=== PATIENT | male | born 1940 | race Caucasian/White ===

== ENCOUNTER 2019-02-17 22:49 | Observation (INO) | payer OTHER ==
[~2019-02-17] VITALS: Ht 172.7 cm; Wt 88.3 kg
--- OUTSIDE RECORDS SUMMARY | ~2019-02-17 | XMS | Encounter Summary ---
Demographics + + + | Address | [address] | | | [place] [address] | + + + | Home Phone | | + + + | Preferred Language | Unknown | + + + | Marital Status | | + + + | Methodist Affiliation | 1025 | + + + | Race | Unknown | + + + | Ethnic Group | Unknown | + + + Author + + + | Author | [facility] | | | and [place] | + + + | Organization | [facility] | | | and [place] | + + + | Address | Unknown | + + + | Phone | Unavailable | + + + Support + + +---------+ + | Name | Relationship | Address | Phone | + + +---------+ + | Ella Mcfadden | ECON | Unknown | | + + +---------+ + | Juan Mcfadden | ECON | Unknown | | + + +---------+ + Care Team Providers + +------+ + | Care Communications Equipment Operator Name | Role | Phone | + +------+ + | Ryan Gutiérrez MD | PCP | | + +------+ + Encounter Details +--------+ + + + + | Date | Type | Department | Care Team | Description | +--------+ + + + + | 10/22/ | [facility] | | | 2017 | Encounter | [facility] [address] | MD [address] | | | | | [address] | [place] | | | | | [place] | [address] | | | | | [address] | | | | | | [phone] | | | +--------+ + + + + Social History + +-------+ +--------+------+ | Tobacco Use | Types | Packs/Day | Years | Date | | | | | Used | | + +-------+ +--------+------+ | Former Smoker | | | | | + +-------+ +--------+------+ + + +---------+ + | Alcohol Use | Drinks/Week | oz/Week | Comments | + + +---------+ + | Not Asked | | | | + + +---------+ + + + + | Sex Assigned at | Date Recorded | | | | + + + | Not on file | | + + + + + + + | Job Start Date | Occupation | Industry | + + + + | Not on file | Not on file | Not on file | + + + + + + + + | Travel History | Travel Start | Travel End | + + + + + + | No recent travel history available. | + + documented as of this encounter Medications at Time of Discharge + + + +---------+--------+ + | Medication | Sig | Dispensed | Refills | Start | End Date | | | | | | Date | | + + + +---------+--------+ + | aspirin 81 mg EC | Take 81 mg by mouth | | 0 | | | | tablet | Daily. | | | | 7 | + + + +---------+--------+ + | atenolol | Take 25 mg by mouth | | 0 | | | | (TENORMIN) 25 mg | Daily. | | | | 8 | | tablet | | | | | | + + + +---------+--------+ + | gabapentin | Take 600 mg by mouth | | 0 | | | | (NEURONTIN) 300 mg | 3 times daily. | | | | 8 | | capsule | | | | | | + + + +---------+--------+ + | levothyroxine | Take 137 mcg by | | 0 | | | | (SYNTHROID, | mouth every morning | | | | 8 | | LEVOTHROID) 137 MCG | (before breakfast). | | | | | | tablet | | | | | | + + + +---------+--------+ + | omeprazole | Take 20 mg by mouth | | 0 | | | | (PRILOSEC) 20 mg | every morning | | | | 8 | | capsule | (before breakfast). | | | | | + + + +---------+--------+ + | testosterone | Place 1 patch onto | | 0 | | | | (ANDRODERM) 2.5 | the skin Daily. | | | | 8 | | mg/24 hr | | | | | | + + + +---------+--------+ + documented as of this encounter Plan of Treatment +--------+---------+ + + + | Date | Type | Specialty | Care Team | Description | +--------+---------+ + + + | 02/25/ | Office | General Surgery | Scott De Oliveira | | | 2018 | Visit | | DO Luis Fernando Rao | | | | | | [address] | | | | | | [place] | | | | | | [address] | | | | | | [phone] | | | | | | | | +--------+---------+ + + + | 02/26/ | Office | Urology | Lillie Fowler | | | 2018 | Visit | | LILLIE Lopez [address] | | | | | | [address] | | | | | | [place] | | | | | | [address] | | | | | | [phone] | | | | | | | | +--------+---------+ + + + | 03/16/ | Office | Neurology | Theresa, | | | 2018 | Visit | | SHONDA M[address]ney [address] | | | | | [address] [place], | | | | | | [place] [address] | | | | | | [phone] | | | | | | | | +--------+---------+ + + + | 04/12/ | Office | Primary Care | Massimo Ramos | | | 2019 | Visit | | MD Fer [address] | | | | | | [place] | | | | | | [address] | | | | | | | | +--------+---------+ + + + | 10/03/ | Office | Neurology | Fabián Carias MD | | | 2019 | Visit | | [address] | | | | | | [place] | | | | | | [address] | | | | | | | | +--------+---------+ + + + documented as of this encounter Goals + +--------+ + + + + | Goal | Patien | Associated | Recent Progress | Patient- | Author | | | t Goal | Problems | | Stated? | | | | Type | | | | | + +--------+ + + + + | Improve kidney | Lifest | Coordinatio | | Yes | Jocelyn, | | function and decrease | yle | n of | | | Charline M, | | dehydration | | complex | | | Case | | | | care | | | Orthodontic Treatment Coordinator-C | | | | | | | linical | + +--------+ + + + + + + | Note: 1) Increase | | fluid intake of water | | 4-8 glasses daily.2) | | Decrease caffeine intake | | daily3) Avoid use of | | NSAID for chronic pain4) | | Decrease or find | | alternative to Narcotics | | for chronic pain | + + + +--------+ +---+-----+ + | Chronic pain | Lifest | Coordinatio | | Yes | Allsen, | | management | yle | n of | | | Charline Dos Santos, | | | | complex | | | Case | | | | care | | | Orthodontic Treatment Coordinator-C | | | | | | | linical | + +--------+ +---+-----+ + + + | Note: 1) Utilize | | non-steroid pain | | reliever for pain2) Use | | alternative pain | | relieving measures; | | exercise.3) Take | | narcotic as prescribed | + + + +--------+ +---+-----+ + | Compliant with | Lifest | Coordinatio | | Yes | Allsen, | | Medication | yle | n of | | | Charline M, | | | | complex | | | Case | | | | care | | | Orthodontic Treatment Coordinator-C | | | | | | | linical | + +--------+ +---+-----+ + + + | Note: Will take | | medications as prescribe | | with managing his | | med minder weekly. | + + + +--------+ +---+-----+ + | Decrease blood sugars | Lifest | Coordinatio | | Yes | Jocelyn, | | | yle | n of | | | Charline Dos Santos, | | | | complex | | | Case | | | | care | | | Orthodontic Treatment Coordinator-C | | | | | | | linical | + +--------+ +---+-----+ + + + | Note: Pt will | | check CBG's daily x1 | | Pt will take Lantis as | | prescribed | + + documented as of this encounter Procedures + +--------+ + + + | Procedure Name | Priori | Date/Time | Associated Diagnosis | Comments | | | ty | | | | + +--------+ + + + | POC GLUCOSE, | Routin | 10/23/2016 | | Results for this | | RAPIDPOINT | e | 7:52 AM | | procedure are in the | | | | PDT | | results section. | + +--------+ + + + | POC GLUCOSE, | Routin | 10/23/2016 | | Results for this | | RAPIDPOINT | e | 6:08 AM | | procedure are in the | | | | PDT | | results section. | + +--------+ + + + | POC GLUCOSE, | Routin | 10/22/2016 | | Results for this | | RAPIDPOINT | e | 9:05 PM | | procedure are in the | | | | PDT | | results section. | + +--------+ + + + | POC GLUCOSE, | Routin | 10/22/2016 | | Results for this | | RAPIDPOINT | e | 5:01 PM | | procedure are in the | | | | PDT | | results section. | + +--------+ + + + | BLOOD GAS, ARTERIAL | DIEUDONNE | 10/22/2016 | | Results for this | | | | 2:35 PM | | procedure are in the | | | | PDT | | results section. | + +--------+ + + + | DRUGS OF ABUSE, | Routin | 10/22/2016 | | Results for this | | SCREEN, URINE | e | 2:33 PM | | procedure are in the | | | | PDT | | results section. | + +--------+ + + + documented in this encounter Results POC Glucose, [facility] (10/23/2016 7:52 AM PDT) + +-------+ + + + | Component | Value | Ref Range | Performed | Pathologist | | | | | At | Signature | + +-------+ + + + | Glucose, | 100 | 70 - 110 mg/dL | EXTERNAL | | | POC | | | LAB | | + +-------+ + + + + + | Specimen | + + | | + + + +---------+ + + | Performing | Address | City/State/Zipcode | Phone Number | | Organization | | | | + +---------+ + + | EXTERNAL LAB | | | | + +---------+ + + POC Glucose, [facility] (10/23/2016 6:08 AM PDT) + +-------+ + + + | Component | Value | Ref Range | Performed | Pathologist | | | | | At | Signature | + +-------+ + + + | Glucose, | 108 | 70 - 110 mg/dL | EXTERNAL | | | POC | | | LAB | | + +-------+ + + + + + | Specimen | + + | | + + + +---------+ + + | Performing | Address | City/State/Zipcode | Phone Number | | Organization | | | | + +---------+ + + | EXTERNAL LAB | | | | + +---------+ + + POC Glucose, [facility] (10/22/2016 9:05 PM PDT) + +-------+ + + + | Component | Value | Ref Range | Performed | Pathologist | | | | | At | Signature | + +-------+ + + + | Glucose, | 93 | 70 - 110 mg/dL | EXTERNAL | | | POC | | | LAB | | + +-------+ + + + + + | Specimen | + + | | + + + +---------+ + + | Performing | Address | City/State/Zipcode | Phone Number | | Organization | | | | + +---------+ + + | EXTERNAL LAB | | | | + +---------+ + + POC Glucose, [facility] (10/22/2016 5:01 PM PDT) + +-------+ + + + | Component | Value | Ref Range | Performed | Pathologist | | | | | At | Signature | + +-------+ + + + | Glucose, | 104 | 70 - 110 mg/dL | EXTERNAL | | | POC | | | LAB | | + +-------+ + + + + + | Specimen | + + | | + + + +---------+ + + | Performing | Address | City/State/Zipcode | Phone Number | | Organization | | | | + +---------+ + + | EXTERNAL LAB | | | | + +---------+ + + Blood Gas, Arterial (10/22/2016 2:35 PM PDT) + + + + + + | Component | Value | Ref Range | Performed | Pathologist | | | | | At | Signature | + + + + + + | pH | 7.31 | 7.35 - 7.45 PH | EXTERNAL | | | | | UNITS | LAB | | + + + + + + | PCO2 | 43 | 35 - 45 mm Hg | EXTERNAL | | | | | | LAB | | + + + + + + | PO2 | 104 | 69 - 116 mm Hg | EXTERNAL | | | | | | LAB | | + + + + + + | pH Temp | 7.34 | 7.35 - 7.45 PH | EXTERNAL | | | Corrected | | UNITS | LAB | | + + + + + + | CARBON | 40 | 35 - 45 mm Hg | EXTERNAL | | | DIOXIDE | | | LAB | | | TEMP | | | | | | CORRECTED | | | | | | (REF) | | | | | + + + + + + | PO2 TEMP | 94 | 69 - 116 mm Hg | EXTERNAL | | | CORRECTED | | | LAB | | | (REF) | | | | | + + + + + + | S-O2 SAT | 98 | 95 - 99 % | EXTERNAL | | | ART | | | LAB | | + + + + + + | BASE EXCESS | -4.1 | -2.4 - 2.3 | EXTERNAL | | | | | mEq/L | LAB | | + + + + + + | HCO3 | 22 | 17 - 28 mmol/L | EXTERNAL | | | | | | LAB | | + + + + + + | CO2 | 23 | 23 - 27 mmol/L | EXTERNAL | | | | | | LAB | | + + + + + + | FiO2 | 28.0 | % | EXTERNAL | | | | | | LAB | | + + + + + + | L/min of O2 | 2L/Nasal Cannula | | EXTERNAL | | | | | | LAB | | + + + + + + | Temp, POC | 35.2 | C | EXTERNAL | | | | | | LAB | | + + + + + + | ARTERIAL | RADIAL ARTERY | | EXTERNAL | | | BLOOD GAS | | | LAB | | | DO2 DIFF. | | | | | + + + + + + | Howard Test | PASS | | EXTERNAL | | | | | | LAB | | + + + + + + + + | Specimen | + + | | + + + +---------+ + + | Performing | Address | City/State/Zipcode | Phone Number | | Organization | | | | + +---------+ + + | EXTERNAL LAB | | | | + +---------+ + + Drugs of Abuse, Screen, Urine (10/22/2016 2:33 PM PDT) + +-------+ + + + | Component | Value | Ref Range | Performed | Pathologist | | | | | At | Signature | + +-------+ + + + | THC RESULT | NEG | NEG ng/mL | EXTERNAL | | | | | | LAB | | + +-------+ + + + | Phencyclidi | NEG | NEG ng/mL | EXTERNAL | | | ne | | | LAB | | + +-------+ + + + | Cocaine | NEG | NEG ng/mL | EXTERNAL | | | | | | LAB | | + +-------+ + + + | Methampheta | NEG | NEG ng/mL | EXTERNAL | | | mine | | | LAB | | + +-------+ + + + | Opiates | NEG | NEG ng/mL | EXTERNAL | | | | | | LAB | | + +-------+ + + + | Amphetamine | NEG | NEG ng/mL | EXTERNAL | | | s | | | LAB | | + +-------+ + + + | Benzodiazep | NEG | NEG ng/mL | EXTERNAL | | | codie | | | LAB | | | Screen, | | | | | | Urine | | | | | + +-------+ + + + | TCA Scrn | NEG | NEG ng/mL | EXTERNAL | | | | | | LAB | | + +-------+ + + + | Methadone | NEG | NEG ng/mL | EXTERNAL | | | Screen, | | | LAB | | | Urine | | | | | + +-------+ + + + | Barbiturate | NEG | NEG ng/mL | EXTERNAL | | | s | | | LAB | | + +-------+ + + + | Oxycodone | NEG | NEG ng/mL | EXTERNAL | | | | | | LAB | | + +-------+ + + + | Propoxyphen | NEG | NEG ng/mL | EXTERNAL | | | e | | | LAB | | + +-------+ + + + | Buprenorphi | POS | NEG ng/mL | EXTERNAL | | | ne | | | LAB | | + +-------+ + + + + + | Specimen | + + | | + + + +---------+ + + | Performing | Address | City/State/Zipcode | Phone Number | | Organization | | | | + +---------+ + + | EXTERNAL LAB | | | | + +---------+ + + documented in this encounter Visit Diagnoses Not on filedocumented in this encounter"
--- OUTSIDE RECORDS SUMMARY | ~2019-02-17 | XMS | Encounter Summary ---
Demographics + + + | Address | [address] | | | [place] [address] | + + + | Home Phone | | + + + | Preferred Language | Unknown | + + + | Marital Status | | + + + | Scientology Affiliation | 1025 | + + + | Race | Unknown | + + + | Ethnic Group | Unknown | + + + Author + + + | Author | [facility] | | | and [place] | + + + | Organization | [facility] | | | and [place] | + + + | Address | Unknown | + + + | Phone | Unavailable | + + + Support + + +---------+ + | Name | Relationship | Address | Phone | + + +---------+ + | Ella Mcfadden | ECON | Unknown | | + + +---------+ + | Juan Gill | ECON | Unknown | | + + +---------+ + Care Team Providers + +------+ + | Care Wood Coater Name | Role | Phone | + +------+ + | Horacio Silvestre DO | PCP | | + +------+ + Reason for Visit + + + | Reason | Comments | + + + | Medication Refill | | + + + Encounter Details +--------+--------+ + + + | Date | Type | Department | Care Team | Description | +--------+--------+ + + + | 02/11/ | Refill | [facility] | Horacio Silvestre, | Medication Refill | | 2017 | | [facility] | DO [address] | | | | | [facility] [address] | [facility], [place] | | | | | [address] [place], | [address] | | | | | [place] [address] | [phone] | | | | | [phone] | | | +--------+--------+ + + + Social History + +-------+ +--------+ + | Tobacco Use | Types | Packs/Day | Years | Date | | | | | Used | | + +-------+ +--------+ + | Former Smoker | | 3 | | Quit: 1975 | + +-------+ +--------+ + + +---+---+---+ | Smokeless Tobacco: | | | | | Never Used | | | | + +---+---+---+ + + +---------+ + | Alcohol Use | Drinks/Week | oz/Week | Comments | + + +---------+ + | No | | | | + + +---------+ [...] + + documented as of this encounter Functional Status + + + + | Functional Status | Response | Date of Assessment | + + + + | Are you deaf or do you have serious | No | 01/11/2018 | | difficulty hearing? | | | + + + + | Are you blind or do you have serious | Yes | 01/11/2018 | | difficulty seeing, even when wearing | | | | glasses? | | | + + + + | Do you have serious difficulty walking or | No | 01/11/2018 | | climbing stairs? (5 years old or older) | | | + + + + | Do you have difficulty dressing or bathing? | No | 01/11/2018 | | (5 years old or older) | | | + + + + | Because of a physical, mental, or emotional | Yes | 01/11/2018 | | condition, do you have difficulty doing | | | | errands alone such as visiting a doctor's | | | | office or shopping? [15 years old or | | | | older)] | | | + + + + + + + + | Cognitive Status | Response | Date of Assessment | + + + + | Because of a physical, mental, or emotional | Yes | 01/11/2018 | | condition, do you have serious difficulty | | | | concentrating, remembering, or making | | | | decisions? (5 years old or older) | | | + + + + documented as of this encounter Plan of Treatment +--------+---------+ + + + | Date | Type | Specialty | Care Team | Description | +--------+---------+ + + + | 02/25/ | Office | General Surgery | Scott De Oliveira | | | 2019 | Visit | | DO Jalen [address] | | | | | | [address] | | | | | | [place], [place] | | | | | | [address] | | | | | | [phone] | | | | | | | | +--------+---------+ + + + | 02/26/ | Office | Urology | Lillie Fowler | | | 2018 | Visit | | LILLIE Lopez [address] | | | | | | [address] | | | | | | [place], [place] | | | | | | [address] | | | | | | [phone] | | | | | | | | +--------+---------+ + + + | 03/16/ | Office | Neurology | Theresa, | | | 2018 | Visit | | SHONDA [address] | | | | [address] [place], | | | | | | [place] [address] | | | | | | [phone] | | | | | | | | +--------+---------+ + + + | 04/12/ | Office | Primary Care | Massimo Ramos | | | 2019 | Visit | | MD Fer [address] | | | | | | [place] | | | | | | [address] | | | | | | | | +--------+---------+ + + + | 10/03/ | Office | Neurology | Fabián Carias MD | | | 2019 | Visit | | [address] | | | | | | [place] | | | | | | [address] | | | | | | | [...] | | Charline Dos Santos, | | dehydration | | complex | | | Case | | | | care | | | Buffer Machine-C | | | | | | | [...] | | Yes | Jocelyn, | | management | yle | n of | | | Charline M, | | | | complex | | | Case | | | | care | | | Buffer Machine-C | | | | | | | [...] Lifest | Coordinatio | | Yes | Dresen, | | Medication | yle | n of | | | Charlnie Dos Santos, | | | | complex | | | Case | | | | care | | | Buffer Machine-C | | | | | | | linical | + +--------+ +---+-----+ + + + | Note: Will take | | medications as prescribe | | with managing his | | med ian weekly. 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
--- OUTSIDE RECORDS SUMMARY | ~2019-02-17 | XMS | Encounter Summary ---
Demographics + + + | Address | [address] | | | [place] [address] | + + + | Home Phone | | + + + | Preferred Language | Unknown | + + + | Marital Status | | + + + | Druze Affiliation | 1025 | + + + | Race | Unknown | + + + | Ethnic Group | Unknown | + + + Author + + + | Author | [facility] | | | and [place] | + + + | Organization | [facility] | | | and [...] Team Providers + +------+ + | Care Street Light Wirer Name | Role | Phone | + +------+ + | Horacio Silvestre DO | PCP | | + +------+ + Reason for Visit + + + | Reason | Comments | + + + | Medication Refill | pain medication | + + + Encounter Details +--------+--------+ + + + | Date | Type | Department | Care Team | Description | +--------+--------+ + + + | 06/13/ | Refill | [facility] | Horacio Silvestre, | Medication Refill | | 2017 | | [facility] | [address] | (pain medication ) | | | | [facility] | [facility], [place] | | | | | [address] [place], | [address] | | | | | [place] [address] | [phone] | | | | | [phone] | | | +--------+--------+ + + + [...] | 2019 | Visit | | DO Luis Fernando Rao | | | | | | [address] | | | | | | [place], [place] | | | | | | [address] | | | | | | [phone] | | | | | | | | +--------+---------+ + + + | 02/26/ | Office | Urology | Lillie Fowler | | | 2018 | Visit | | [address]IE [address] | | | | | | [address] | | | | | | [place], [place] | | | | | | [address] | | | | | | [phone] | | | | | | | | +--------+---------+ + + + | 03/16/ | Office | Neurology | Theresa, | | | 2018 | Visit | | [address] | | | | | | [address] [place], | | | | | | [place] [address] | | | | | | [phone] | | | | | | | | +--------+---------+ + + + | 04/12/ | Office | Primary Care | Massimo Ramos | | | 2019 | Visit | | MD Fer [address] | | | | | | [place] | | | | | | [address] | | | | | | | | +--------+---------+ + + + | 10/03/ | Office | Neurology | Fabián Carias MD | | | 2019 | Visit | | [address] | | | | | | [place] | | | | | | [address] | | | | | | | [...] | | | care | | | Newsp[place]-C | | | | | | | [...] | | | care | | | Newsperson-C | | | | | | | [...] | | | care | | | Newsperson-C | | | | | | | [...] | | | care | | | Newsp[facility]-C | | | | | | | [...] site | | unspecified | + + documented in this encounter"
--- OUTSIDE RECORDS SUMMARY | ~2019-02-17 | XMS | Encounter Summary ---
Demographics + + + | Address | [address] | | | [place] [address] | + + + | Home Phone | | + + + | Preferred Language | Unknown | + + + | Marital Status | | + + + | Zoroastrianism Affiliation | 1025 | + + + | Race | Unknown | + + + | Ethnic Group | Unknown | + + + Author + + + | Author | [facility] | | | and [place] | + + + | Organization | [facility] | | | [...] Team Providers + +------+ + | Care Spine Nurse Name | Role | Phone | + +------+ + | Horacio Silvestre DO | PCP | | + +------+ + Reason for Visit + + + | Reason | Comments | + + + | Follow-up | diabetes | + + + | Arthritis | left hand/shoulder | + + + Evaluate & Treat (Routine) +--------+--------+ + + + + | Status | Reason | Specialty | Diagnoses / | Referred By | Referred To | | | | | Procedures | Contact | Contact | +--------+--------+ + + + + | Closed | | Primary Care | Diagnoses | [place] [facility] | | | | | | [place] | [facility] | | | | | Office/outpa | MEDICAL | Primary Care | | | | | tient visit | [place] [address] | [address] | | | | | est | [place] | [place] | | | | | [address], | [address] | [address] | | | | | Authorized | [address] [place] | Phone: | | | | | For any | MARCELO LANGSTON | [phone] | | | | | clinically | [address] | Fax: | | | | | necessary | Phone: | [phone] | | | | | Visits for | [phone] | | | | | | 365 days | Fax: | | | | | | AUTH NO: | [phone] | | | | | | [phone] | | | +--------+--------+ + + + + Encounter Details +--------+---------+ + + + | Date | Type | Department | Care Team | Description | +--------+---------+ + + + | 12/31/ | Office | [facility] | Horacio Silvestre, | Type 2 diabetes | | 2017 | Visit | [facility] | DO [address] | mellitus with | | | | MEDICAL CLINIC [facility] | [facility], [place] | diabetic | | | | [address] [place], | [address] | polyneuropathy, with | | | | [place] [address] | [phone] | long-term current | | | | [phone] | | use of insulin (HCC) | | | | | | (Primary Dx); | | | | | | Atherosclerosis of | | | | | | [place] coronary | | | | | | artery of [place] | | | | | | heart without angina | | | | | | pectoris; Primary | | | | | | osteoarthritis | | | | | | involving multiple | | | | | | joints; Multilevel | | | | | | degenerative disc | | | | | | disease; jail | | | | | | current use of | | | | | | opiate analgesic | +--------+---------+ + + + Social History + +-------+ [...] | | | + +---+---+---+ + + | Tobacco Cessation: Counseling Given: No | + + + + +---------+ + | Alcohol Use [...] + + documented as of this encounter Last Filed Vital Signs + + + + + | Vital Sign | Reading | Time Taken | Comments | + + + + + | Blood Pressure | 165/73 | 12/31/2017 10:05 AM | left arm med cuff | | | | PDT | | + + + + + | Pulse | 55 | 12/31/2017 10:05 AM | reg | | | | PDT | | + + + + + | Temperature | - | - | | + + + + + | Respiratory Rate | 16 | 12/31/2017 10:05 AM | | | | | PDT | | + + + + + | Oxygen Saturation | 94% | 12/31/2017 10:05 AM | ra | | | | PDT | | + + + + + | Inhaled Oxygen | - | - | | | Concentration | | | | + + + + + | Weight | 95.8 kg (211 lb 1.6 | 12/31/2017 10:05 AM | | | | oz) | PDT | | + + + + + | Height | 167.6 cm (5' 6") | 12/31/2017 10:05 AM | | | | | PDT | | + + + + + | Body Mass Index | 34.07 | 12/31/2017 10:05 AM | | | | | PDT | | + + + + + documented in this encounter Functional Status + + + + | Functional Status | Response | Date of Assessment | + + + + | Are you deaf or do you have serious | No | 08/16/2017 | | difficulty hearing? | | | + + + + | Are you blind or do you have serious | Yes | 08/16/2017 | | difficulty seeing, even when wearing | | | | glasses? | | | + + + + | Do you have serious difficulty walking or | No | 08/16/2017 | | climbing stairs? (5 years old or older) | | | + + + + | Do you have difficulty dressing or bathing? | No | 08/16/2017 | | (5 years old or older) | | | + + + + | Because of a physical, mental, or emotional | Yes | 08/16/2017 | | condition, do you have difficulty [...] physical, mental, or emotional | Yes | 08/16/2017 | | condition, do you have serious difficulty | | | | concentrating, remembering, or making | | | | decisions? (5 years old or older) | | | + + + + documented as of this encounter Progress Notes Horacio Silvestre DO - 12/31/2017 10:00 AM PDTFormatting of this note might be different f rom the original. Patient ID: Geraldo Mcfadden is a 77 y.o. year old male Chief Complaint: Chief Complaint Patient presents with Follow-up diabetes Arthritis left hand/shoulder Assessment and Plan: 1. Type 2 diabetes mellitus with diabetic polyneuropathy, with long-term current use of ins ulin (HCC) Stable 2. Atherosclerosis of [place] coronary artery of [place] heart without angina pectoris Stable 3. Primary osteoarthritis involving multiple joints - naproxen (NAPROSYN) 500 mg tablet; Take 1 tablet by mouth 2 times daily (with breakfast & dinner). Dispense: 180 tablet; Refill: 3 4. 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 Dispense: 180 capsule; Refill: 0 - naproxen (NAPROSYN) 500 mg tablet; Take 1 tablet by mouth 2 times daily (with breakfast & dinner). 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 He has type 2 diabetes mellitus. His disease course has been stable. There are no hypoglycemic associated symptoms. Associated symptoms i nclude foot paresthesias. There are no hypoglycemic complications. Symptoms are stable. Diab etic complications include a CVA, heart disease and peripheral neuropathy. Pertinent negativ es for diabetic complications include no autonomic neuropathy, impotence, nephropathy, PVD o r retinopathy. Current diabetic treatment includes insulin injections. He is compliant with treatment all of the time. He is following a diabetic diet. An DENY inhibitor/angiotensin II receptor marly is being taken. Hand Pain The pain is present in the left hand, right hand, right shoulder, left shoulder and back. T his is a chronic problem. The current episode started more than 1 year ago. There has been n o history of extremity trauma. The problem occurs constantly. The problem has been unchanged . The quality of the pain is described as burning. The pain is moderate. Pertinent negatives include no numbness or stiffness. The symptoms are aggravated by activity. He has tried ora l narcotics for the symptoms. The treatment provided moderate relief. His past medical histo ry is significant for osteoarthritis. Allergies: Allergies Allergen Reactions Zolpidem Anaphylaxis Past Medical History: Diagnosis Date Carpal tunnel syndrome, bilateral 05/31/2013 DDD (degenerative disc disease), cervical 05/22/2013 Diabetes mellitus (HCC) GERD (gastroesophageal reflux disease) Gout Hiatal hernia Hypertension Melanoma (HCC) L ear Melanoma (HCC) Left ear 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, left (HCC) Neck pain, chronic 05/22/2013 Neuropathy Paresthesias - both hands 05/22/2013 Thyroid disease Past Surgical History: Procedure Laterality Date APPENDECTOMY CATARACT REMOVAL Right 04/28/2017 Procedure: CATARACT REMOVAL; Surgeon: Tay Kern MD; Location: [facility] SURGERY [facility] [place] [facility] SURGERY Left L ear melanoma Ventral incisional hernia repair Family History Problem Relation Age of Onset Diabetes Mother Heart disease Father Arthritis Maternal Grandfather Heart disease Maternal Grandfather Other (see comment) Paternal Grandmother Dementia Social History: Social History Social History Marital status: Spouse name: N/A Number of children: N/A Years of education: N/A Occupational History Not on file. Social History Main Topics Smoking status: Former Smoker Packs/day: 3.00 Quit date: 1974 Smokeless tobacco: Never Used Alcohol use No Drug use: No Sexual activity: Not on file Other Topics Concern Not on file Social History Narrative No narrative on file Medications: Current Outpatient Prescriptions Medication Sig Dispense Refill albuterol 90 mcg/puff inhaler Inhale 2 puffs into the lungs every 4 hours as needed for Wheezing. Or coughing 1 Inhaler 1 aspirin 325 mg tablet Take 325 mg by mouth Daily. atorvaSTATin (LIPITOR) 10 mg tablet Take 10 mg by mouth nightly. azithromycin (ZITHROMAX) 250 mg tablet Take 2 tablets by mouth on day 1, and 1 tablet b y mouth every day 7 tablet 0 cholecalciferol (VITAMIN D-3) 1,000 units tablet Take 2 tablets by mouth Daily. 180 tab let 3 colchicine 0.6 mg tablet Take 0.6 mg by mouth 2 times daily. cyanocobalamin (VITAMIN B-12) 1000 MCG tablet Take 1 tablet by mouth Daily. 90 tablet 3 fluticasone (FLONASE) 50 mcg/nasal spray 2 sprays by Nasal route Daily. 16 g 4 hydroCHLOROthiazide 25 mg tablet Take 0.5 tablets by mouth Daily. 45 tablet 3 insulin aspart (NOVOLOG) 100 units/mL injection Inject 10 Units under the skin 3 times daily (before meals). Take 10 units prior to each meal and follow sliding scale of blood sug ar between 151-200 = 4 units; 201-250=8 units; 251-300=10 units; 301-350= 12 units; 351-400= 14 units; 401-450= 16 units. 10 mL 3 insulin glargine (LANTUS) 100 units/mL injection (vial) Inject 35 Units under the skin nightly. 3 vial 5 Insulin Syringe-Needle U-100 31G X 5/16" 0.5 ML MISC 1 each by Does not apply route 4 t imes daily (before meals and nightly). Use with Lantus and Novolog 400 each 3 levothyroxine (SYNTHROID) 175 MCG tablet Take 1 tablet by mouth every morning (before b reakfast). 90 tablet 3 losartan (COZAAR) 50 mg tablet Take 50 mg by mouth Daily. naproxen (NAPROSYN) 500 mg tablet Take 1 tablet by mouth 2 times daily (with breakfast & dinner). 180 tablet 3 omeprazole (PRILOSEC) 20 mg capsule Take 1 capsule by mouth every morning (before break fast). 90 capsule 0 ondansetron (ZOFRAN ODT) 4 mg disintegrating tablet Take 1 tablet by mouth every 6 hour s as needed for Nausea or Vomiting. 20 tablet 0 oxyCODONE 10 MG TABS Take 1 tablet by mouth 3 times daily as needed for Pain. 84 tablet 0 pregabalin (LYRICA) 300 MG capsule Take 1 capsule by mouth 2 times daily. 180 capsule 0 sertraline (ZOLOFT) 100 mg tablet Take 150 mg by mouth Daily. tamsulosin (FLOMAX) 0.4 mg CAPS Take 1 capsule by mouth nightly. 90 capsule 3 tiotropium (SPIRIVA) 18 mcg inhalation capsule Inhale 18 mcg into the lungs Daily. traZODone (DESYREL) 50 mg tablet Take 1 tablet by mouth nightly. 90 tablet 3 No current facility-administered medications for this visit. Review of Systems Genitourinary: Negative for impotence. Musculoskeletal: Negative for stiffness. Neurological: Negative for numbness. Objective: Vitals: BP 165/73 Comment: left arm med cuff | Pulse 55 Comment: reg | Resp 16 | Ht 1.676 m (5' 6" ) | Wt 95.8 kg (211 lb 1.6 oz) | SpO2 94% Comment: ra | BMI 34.07 kg/m Physical Exam Constitutional: He appears well-developed and well-nourished. No distress. Cardiovascular: Normal rate, regular rhythm and normal heart sounds. Exam reveals no berman p and no friction rub. No murmur heard. Pulmonary/Chest: Effort normal and breath sounds normal. No respiratory distress. He has no wheezes. He has no rales. Musculoskeletal: Lumbar back: He exhibits tenderness and pain. Nursing note and vitals reviewed. This note was transcribed using voice recognition software; there may be speech recognition errors which escaped detection during proofreading. documented in this encounter Plan of Treatment +--------+---------+ + [...] [place] | | | | | | [address] | | | | | | [phone] | | | | | | | | +--------+---------+ + + + | 02/26/ | Office | Urology | Lillie Fowler | | | 2018 | Visit | | [address]ILLIE Lopez [address] | | | | | | [address] | | | | | | [place] | | | | | | [address] | | | | | | [phone] | | | | | | | | +--------+---------+ + + + | 03/16/ | Office | Neurology | Theresa, | | | 2018 | Visit | | [address] | | | | | [address] [place], | | | | | | [place] [address] | | | | | | [phone] | | | | | | | | +--------+---------+ + + + | 04/12/ | Office | Primary Care | Massimo Ramos | | | 2019 | Visit | | MD Fer [address] | | | | | | [address] [place] | | | | | | [address] | | | | | | | | +--------+---------+ + + + | 10/03/ | Office | Neurology | Fabián Carias MD | | | 2019 | Visit | | [address] | | | | | | [place] | | | | | | [address] | | | | | | | [...] | | | care | | | Skip Hoist Engineer-C | | | | | | | [...] | | | care | | | Skip Hoist Engineer-C | | | | | | | [...] | | Yes | Jocelyn, | | Medication | yle | n of | | | Charline Dos Santos, | | | | complex | | | Case | | | | care | | | Skip Hoist Engineer-C | | | | | | | [...] | | | care | | | Skip Hoist Engineer-C | | | | | | | linical | + +--------+ +---+-----+ + + + | Note: Pt will | | check CBG's daily x1 | | Pt will take Lantis as | | prescribed | + + documented as of this encounter Visit Diagnoses + + | Diagnosis | + + | Type 2 diabetes mellitus with diabetic polyneuropathy, 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) - Primary | + + | Atherosclerosis of [place] coronary artery of [place] heart without angina pectoris | + + | Primary osteoarthritis involving multiple joints | + + | Multilevel degenerative disc disease Degeneration of intervertebral disc, site | | unspecified | + + | jail current use of opiate analgesic Encounter for long-term (current) use of | | other medications | + + documented in this encounter
--- OUTSIDE RECORDS SUMMARY | ~2019-02-17 | XMS | Encounter Summary ---
Demographics + + + | Address | [address] | | | [place] [address] | + + + | Home Phone | | + + + | Preferred Language | Unknown | + + + | Marital Status | | + + + | Yarsani Affiliation | 1025 | + + + | Race | Unknown | + + + | Ethnic Group | Unknown | + + + Author + + + | Author | [facility] | | | and [place] | + + + | Organization | [facility] | | | and [place] | + + + | Address | Unknown | + + + | Phone | Unavailable | + + + Support + + +---------+ + | Name | Relationship | Address | Phone | + + +---------+ + | Ella Mcfadden | ECON | Unknown | | + + +---------+ + | Jaun Gill | ECON | Unknown | | + + +---------+ + Care Team Providers + +------+ + | Care Office Director Name | Role | Phone | + [...] Description | +--------+--------+ + + + | 04/04/ | Refill | [facility] [facility] | Horacio Silvestre, | Medication Refill | | 2016 | | [facility] | [address] | | | | | MEDICAL CL[facility] [address] | [facility], [place] | | | | | [address] [place], | [address] | | | | | [place] [address] | [phone] | | | | | [phone] | | | +--------+--------+ + + + Social History + +-------+ +--------+------+ | Tobacco Use | Types | Packs/Day | Years | Date | | | | | Used | | + +-------+ +--------+------+ | Former Smoker | | | | | + +-------+ +--------+------+ + +---+---+---+ | Smokeless Tobacco: | | [...] [place] | | | | | | [address] | | | | | | [phone] | | | | | | | | +--------+---------+ + + + | 02/26/ | Office | Urology | Malcolm Lillie | | | 2018 | Visit | | [address] | | | | | | [address] | | | | | | [place], [place] | | | | | | [address] | | | | | | [phone] | | | | | | | | +--------+---------+ + + + | 03/16/ | Office | Neurology | Theresa, | | | 2018 | Visit | | [address] | | | | | | [address] [place], | | | | | | [place] [address] | | | | | | [phone] | | | | | | | | +--------+---------+ + + + | 04/12/ | Office | Primary Care | Massimo Ramos | | | 2019 | Visit | | MD Fer [address] | | | | | | [place] | | | | | | [address] | | | | | | | | +--------+---------+ + + + | 10/03/ | Office | Neurology | Fabián Carias MD | | | 2019 | Visit | | [address] | | | | | | [place] | | | | | | [address] | | | | | | | [...] | | | care | | | Brim Greaser Operator-C | | | | | | | [...] | | | care | | | Brim Greaser Operator-C | | | | | | | [...] | | | care | | | Brim Greaser Operator-C | | | | | | | linical | + +--------+ +---+-----+ + + + | Note: Will take | | medications as prescribe | | with managing his | | med minder weekly. | + + + +--------+ +---+-----+ + | Decrease blood sugars | Lifest | Coordinatio | | Yes | Allsen, | | | yle | n of | | | Charline Dos Santos, | | | | complex | | | Case | | | | care | | | Brim Greaser Operator-C | | | | | | | linical | + +--------+ +---+-----+ + + + | Note: Pt will | | check CBG's daily x1 | | Pt will take Lantis as | | prescribed | + + documented as of this encounter Visit Diagnoses Not on filedocumented in this encounter"
--- OUTSIDE RECORDS SUMMARY | ~2019-02-17 | XMS | Encounter Summary ---
Demographics + + + | Address | [address] | | | [place] [address] | + + + | Home Phone | | + + + | Preferred Language | Unknown | + + + | Marital Status | | + + + | Temple Affiliation | 1025 | + + + | Race | Unknown | + + + | Ethnic Group | Unknown | + + + Author + + + | Author | [facility] | | | and [place] | + + + | Organization | [facility] | | [...] Team Providers + +------+ + | Care Drying Tunnel Operator Name | Role | Phone | [...] Description | +--------+--------+ + + + | 06/03/ | Refill | [place] [facility] | Horacio Silvestre, | Medication Refill | | 2019 | | [facility] | DO [address] | | | | | MEDICAL CL[facility] | [facility], [place] | | | | | [address] [place], | [address] | | | | | [place] [address] | [phone] | | | | | [phone] | | | +--------+--------+ + + + [...] do you have serious | No | 03/17/2018 | | difficulty hearing? | | | + + + + | Are you blind or do you have serious | Yes - pt states he | 03/17/2018 | | difficulty seeing, even when wearing | needs new eye | | | glasses? | glasses | | + + + + | Do you have serious difficulty walking or | No | 03/17/2018 | | climbing stairs? (5 years old or older) | | | + + + + | Do you have difficulty dressing or bathing? | No | 03/17/2018 | | (5 years old or older) | | | + + + + | Because of a physical, mental, or emotional | No | 03/17/2018 | | condition, do you have difficulty [...] of a physical, mental, or emotional | No | 03/17/2018 | | condition, do you have serious [...] | 2018 | Visit | | DO Jalen [address] | | | | | | [address] | | | | | | [place], [place] | | | | | | [address] | | | | | | [phone] | | | | | | | | +--------+---------+ + + + | 02/26/ | Office | Urology | Lillie Fowler | | | 2019 | Visit | | [address]ILLIE Lopez [address] | | | | | | [address] | | | | | | [place], [place] | | | | | | [address] | | | | | | [phone] | | | | | | | | +--------+---------+ + + + | 03/16/ | Office | Neurology | Theresa, | | | 2018 | Visit | | [address] | | | | | | [address] [place], | | | | | | [place] [address] | | | | | | [phone] | | | | | | | | +--------+---------+ + + + | 04/12/ | Office | Primary Care | Massimo Ramos Pedro Luis | | | 2019 | Visit | | MD Fer [address] | | | | | | [place] | | | | | | [address] | | | | | | | | +--------+---------+ + + + | 10/03/ | Office | Neurology | Fabián Carias MD | | | 2019 | Visit | | [address] | | | | | | [place] | | | | | | [address] | | | | | | | [...] | | | care | | | Informal Waiter/Waitress-C | | | | | | | [...] | | | care | | | Informal Waiter/Waitress-C | | | | | | | [...] | | | care | | | Informal Waiter/Waitress-C | | | | | | | linical | + +--------+ +---+-----+ + + + | Note: Will take | | medications as prescribe | | with managing his | | med ian weekly. | + + + +--------+ +---+-----+ + | Decrease blood sugars | Lifest | Coordinatio | | Yes | Jocelyn, | | | kandacee | n of | | | Charline Dos Santos, | | | | complex | | | Case | | | | care | | | Informal Waiter/Waitress-C | | | | | | | linical | + +--------+ +---+-----+ + + + | Note: Pt will | | check CBG's daily x1 | | Pt will take Lantis as | | prescribed | + + documented as of this encounter Visit Diagnoses Not on filedocumented in this encounter"
--- OUTSIDE RECORDS SUMMARY | ~2019-02-17 | XMS | Encounter Summary ---
Demographics + + + | Address | [address] | | | [place] [address] | + + + | Home Phone | | + + + | Preferred Language | Unknown | + + + | Marital Status | | + + + | Taoist Affiliation | 1025 | + + + | Race | Unknown | + + + | Ethnic Group | Unknown | + + + Author + + + | Author | [facility] | | | and [place] | + + + | Organization | [facility] | | | [...] Team Providers + +------+ + | Care Cow Tender Name | Role | Phone | + +------+ + | Ryan Gutiérrez MD | PCP | | + +------+ + Encounter Details +--------+ + + + + | Date | Type | Department | Care Team | Description | +--------+ + + + + | 08/17/ | Hospital | [facility] | Luciano Diana | | | 2016 | Encounter | [facility] | [address] | | | | | [address] | [address] | | | | | [address] [place], [place] | [place] [address] | | | | | [address] | [phone] | | | | | [phone] | | | +--------+ + + + [...] [place] | | | | | | [address] | | | | | | [phone] | | | | | | | | +--------+---------+ + + + | 02/26/ | Office | Urology | Lillie Fowler | | | 2018 | Visit | | LILLIE Lopez [address] | | | | | | [address] | | | | | | [place] | | | | | | [address] | | | | | | [phone] | | | | | | | | +--------+---------+ + + + | 03/16/ | Office | Neurology | Theresa, | | | 2018 | Visit | | SHONDA M[address] | | | | | | [address] [place], | | | | | | [place] [address] | | | | | | [phone] | | | | | | | | +--------+---------+ + + + | 04/12/ | Office | Primary Care | Massimo Ramos | | | 2019 | Visit | | MD Fer [address] | | | | | | [place] | | | | | | [address] | | | | | | | | +--------+---------+ + + + | 10/03/ | Office | Neurology | Fabián Carias MD | | | 2019 | Visit | | [address] | | | | | | [place] | | | | | | [address] | | | | | | | [...] | | | care | | | Muffler Installer-C | | | | | | | [...] | | | care | | | Muffler Installer-C | | | | | | | [...] | | | care | | | Muffler Installer-C | | | | | | | [...] | | | care | | | Muffler Installer-C | | | | | | | [...] | + +--------+ + + + | URINALYSIS WITH | STAT | 08/18/2015 | | Results for this | | MICROSCOPIC WITH | | 11:28 AM | | procedure are in the | | CULTURE IF INDICATED | | PDT | | results section. | + +--------+ + + + | CBC W/AUTO | STAT | 08/18/2015 | | Results for this | | DIFFERENTIAL | | 10:45 AM | | procedure are in the | | | | PDT | | results section. | + +--------+ + + + | SEDIMENTATION RATE | STAT | 08/18/2015 | | Results for this | | | | 10:45 AM | | procedure are in the | | | | PDT | | results section. | + +--------+ + + + | LIPASE | STAT | 08/18/2015 | | Results for this | | | | 10:45 AM | | procedure are in the | | | | PDT | | results section. | + +--------+ + + + | COMPREHENSIVE | STAT | 08/18/2015 | | Results for this | | METABOLIC PANEL | | 10:45 AM | | procedure are in the | | | | PDT | | results section. | + +--------+ + + + | CT ABDOMEN PELVIS W | Routin | 08/18/2015 | | Results for this | | CONTRAST | e | 9:59 AM | | procedure are in the | | | | PDT | | results section. | + +--------+ + + + documented in this encounter Results Urinalysis with Microscopic with Culture if Indicated (08/18/2015 11:28 AM PDT) + + + + + + | Component | Value | Ref Range | Performed | Pathologist | | | | | At | Signature | + + + + + + | Source | Clean Catch / VOID | | EXTERNAL | | | | | | LAB | | + + + + + + | Clarity | CLEAR | CLEAR | EXTERNAL | | | | | | LAB | | + + + + + + | Color | YELLOW | YELLOW | EXTERNAL | | | | | | LAB | | + + + + + + | Specific | 1.015 | 1.005 - 1.030 | EXTERNAL | | | [place]opit, | | | LAB | | | Urine | | | | | + + + + + + | pH, Urine | 6 | 5.0 - 7.0 pH | EXTERNAL | | | | | | LAB | | + + + + + + | Leukocyte | NEGATIVE | NEGATIVE /uL | EXTERNAL | | | Esterase, | | | LAB | | | Urine | | | | | + + + + + + | Nitrite, | NEGATIVE | NEGATIVE | EXTERNAL | | | Urine | | | LAB | | + + + + + + | Protein, | NEGATIVE | NEGATIVE mg/dL | EXTERNAL | | | Urine | | | LAB | | + + + + + + | Glucose, | NORMAL | NORMAL mg/dL | EXTERNAL | | | Urine | | | LAB | | + + + + + + | Reducing | NOT REQUIRED | NEGATIVE | EXTERNAL | | | Substance, | | | LAB | | | UA, POC | | | | | + + + + + + | Ketones, | NEGATIVE | NEGATIVE mg/dL | EXTERNAL | | | Urine | | | LAB | | + + + + + + | Urobilinoge | NORMAL | NORMAL mg/dL | EXTERNAL | | | n, Urine | | | LAB | | + + + + + + | Bilirubin, | NEGATIVE | NEGATIVE mg/dL | EXTERNAL | | | Urine | | | LAB | | + + + + + + | Blood, | NEGATIVE | NEGATIVE /uL | EXTERNAL | | | Urine | | | LAB | | + + + + + + | WBC UA | NONE SEEN | </= 5 /HPF | EXTERNAL | | | | | | LAB | | + + + + + + | RBC COUNT | NONE SEEN | </= 5 PER HPF | EXTERNAL | | | | | | LAB | | + + + + + + | Bacteria, | NONE SEEN | NONE SEEN /HPF | EXTERNAL | | | UA | | | LAB | | + + + + + + | Culture | NO | | EXTERNAL | | | Indicated | | | LAB | | + + + + + + | SQUAMOUS | RARE | /LPF | EXTERNAL | | | EPITHELIAL | | | LAB | | | UA | | | | | + + + + + + + + | Specimen | + + | | + + + +---------+ + + | Performing | Address | City/State/Zipcode | Phone Number | | Organization | | | | + +---------+ + + | EXTERNAL LAB | | | | + +---------+ + + Sedimentation Rate (08/18/2015 10:45 AM PDT) + +-------+ + + + | Component | Value | Ref Range | Performed | Pathologist | | | | | At | Signature | + +-------+ + + + | ESR | 17 | <=20 mm/h | EXTERNAL | | | | | | LAB | | + +-------+ + + + + + | Specimen | + + | | + + + +---------+ + + | Performing | Address | City/State/Zipcode | Phone Number | | Organization | | | | + +---------+ + + | EXTERNAL LAB | | | | + +---------+ + + Lipase (08/18/2015 10:45 AM PDT) + +-------+ + + + | Component | Value | Ref Range | Performed | Pathologist | | | | | At | Signature | + +-------+ + + + | Lipase | 321 | 73 - 393 U/L | EXTERNAL | | | | | | LAB | | + +-------+ + + + + + | Specimen | + + | | + + + +---------+ + + | Performing | Address | City/State/Zipcode | Phone Number | | Organization | | | | + +---------+ + + | EXTERNAL LAB | | | | + +---------+ + + Comprehensive Metabolic Panel (08/18/2015 10:45 AM PDT) + +-------+ + + + | Component | Value | Ref Range | Performed | Pathologist | | | | | At | Signature | + +-------+ + + + | Sodium | 141 | 132 - 143 | EXTERNAL | | | | | mmol/L | LAB | | + +-------+ + + + | Potassium | 4.1 | 3.3 - 4.9 | EXTERNAL | | | | | mmol/L | LAB | | + +-------+ + + + | Cl | 105 | 95 - 108 mmol/L | EXTERNAL | | | | | | LAB | | + +-------+ + + + | CO2 | 27 | 23 - 34 mmol/L | EXTERNAL | | | | | | LAB | | + +-------+ + + + | Anion Gap | 9 | 7 - 16 | EXTERNAL | | | | | | LAB | | + +-------+ + + + | Calcium | 8.5 | 8.3 - 10.0 | EXTERNAL | | | | | mg/dL | LAB | | + +-------+ + + + | Glucose | 138 | 70 - 110 mg/dL | EXTERNAL | | | | | | LAB | | + +-------+ + + + | BUN, Bld | 22 | 5 - 26 mg/dL | EXTERNAL | | | | | | LAB | | + +-------+ + + + | Creatinine | 1.2 | 0.70 - 1.40 | EXTERNAL | | | | | mg/dL | LAB | | + +-------+ + + + | BUN/Creatin | 18.3 | 7.0 - 24.0 | EXTERNAL | | | ine Ratio | | RATIO | LAB | | + +-------+ + + + | GFR | 59 | >=60 | EXTERNAL | | | ESTIMATE | | mL/min/1.73m2 | LAB | | + +-------+ + + + | Bilirubin, | 0.5 | <=1.2 mg/dL | EXTERNAL | | | Total | | | LAB | | + +-------+ + + + | Protein, | 7.7 | 6.6 - 8.5 g/dL | EXTERNAL | | | Total | | | LAB | | + +-------+ + + + | Albumin | 3.8 | 3.0 - 4.5 g/dL | EXTERNAL | | | | | | LAB | | + +-------+ + + + | Alkaline | 70 | 46 - 116 U/L | EXTERNAL | | | Phosphatase | | | LAB | | + +-------+ + + + | ALT, | 28 | 16 - 63 U/L | EXTERNAL | | | External | | | LAB | | + +-------+ + + + | AST, | 26 | <=38 U/L | EXTERNAL | | | External | | | LAB | | + +-------+ + + + + + | Specimen | + + | | + + + +---------+ + + | Performing | Address | City/State/Zipcode | Phone Number | | Organization | | | | + +---------+ + + | EXTERNAL LAB | | | | + +---------+ + + CBC w/ Auto Differential (08/18/2015 10:45 AM PDT) + + + + + + | Component | Value | Ref Range | Performed | Pathologist | | | | | At | Signature | + + + + + + | WBC | 11.2 | 4.6 - 10.5 | EXTERNAL | | | | | 1000/mm3 | LAB | | + + + + + + | RBC | 4.21 | 4.36 - 5.83 | EXTERNAL | | | | | mil/mm3 | LAB | | + + + + + + | HGB, | 13 | 13.1 - 17.4 | EXTERNAL | | | External | | g/dL | LAB | | + + + + + + | HCT, | 38.8 | 39.0 - 51.9 % | EXTERNAL | | | External | | | LAB | | + + + + + + | MCV | 92 | 82 - 96 fl | EXTERNAL | | | | | | LAB | | + + + + + + | MCH | 30.9 | 27.7 - 32.3 pg | EXTERNAL | | | | | | LAB | | + + + + + + | MCHC | 33.5 | 32.0 - 36.9 | EXTERNAL | | | | | g/dL | LAB | | + + + + + + | RDW-CV | 14.7 | <=17.0 % | EXTERNAL | | | | | | LAB | | + + + + + + | RDW-SD | 48.1 | 34.0 - 57.0 fL | EXTERNAL | | | | | | LAB | | + + + + + + | Platelet | 162 | 150 - 450 | EXTERNAL | | | Count | | 1000/mm3 | LAB | | | Plasma | | | | | + + + + + + | MPV | 10.6 | 9.4 - 12.4 FL | EXTERNAL | | | | | | LAB | | + + + + + + | % Segmented | 68.7 | 42.0 - 76.0 % | EXTERNAL | | | | | | LAB | | | Neutrophils | | | | | + + + + + + | % | 15.3 | 20.0 - 40.0 % | EXTERNAL | | | Lymphocytes | | | LAB | | + + + + + + | % Monocytes | 14.1 | 3.0 - 13.0 % | EXTERNAL | | | | | | LAB | | + + + + + + | % | 1.6 | 0.0 - 7.0 % | EXTERNAL | | | Eosinophils | | | LAB | | + + + + + + | % Basophils | 0.3 | 0.0 - 2.0 % | EXTERNAL | | | | | | LAB | | + + + + + + | Absolute | 7.73 | 2.80 - 7.70 | EXTERNAL | | | Neutrophils | | 1000/mm3 | LAB | | + + + + + + | Absolute | 1.72 | 1.20 - 3.30 | EXTERNAL | | | Lymphocytes | | 1000/mm3 | LAB | | + + + + + + | Absolute | 1.58 | 0.00 - 0.80 | EXTERNAL | | | Monocytes | | 1000/mm3 | LAB | | + + + + + + | Absolute | 0.18 | 0.00 - 0.70 | EXTERNAL | | | Eosinophils | | 1000/mm3 | LAB | | + + + + + + | Absolute | 0.03 | 0.00 - 0.20 | EXTERNAL | | | Basophils | | 1000/mm3 | LAB | | + + + + + + | SLIDE | WBC'S REVIEWED | | EXTERNAL | | | REVIEWED | | | LAB | | + + + + + + + + | Specimen | + + | | + + + +---------+ + + | Performing | Address | City/State/Zipcode | Phone Number | | Organization | | | | + +---------+ + + | EXTERNAL LAB | | | | + +---------+ + + CT Abdomen Pelvis w Contrast (08/18/2015 9:59 AM PDT) + + | Specimen | + + | | + + + + + | Narrative | Performed At | + + + | ORIGINAL CT ABDOMEN AND PELVIS WITH CONTRAST: | | | CLINICAL STATEMENT: Increasing abdominal pain after perforation | | | diverticulitis 6 weeks ago. COMPARISON: CT abdomen and pelvis | | | 07/05/2015. TECHNIQUE: Axial images are obtained through the | | | abdomen and pelvis following uneventful administration of intravenous | | | and oral contrast. DLP is 1175.25 mGy-cm. Call report to | | | Page is made at 1253 hours. REPORT: At the left abdominal wall | | | musculature an air bubble is present within the rectus abdominis | | | muscle. Previously in this region a drainage catheter was present. | | | The catheter has been removed. Within the abdomen small air | | | bubble is noted adjacent to the proximal sigmoid colon seen on image | | | 244 left lower abdomen. Also there is a somewhat tract-type | | | appearance where the drainage catheter had been placed which does | | | demonstrate a small amount of air within the tract. Colonic wall | | | thickening and adjacent mesenteric stranding is present at the | | | proximal sigmoid colon in region of diverticula. No abscess | | | formation or free fluid is seen. Evaluation of the colon is limited | | | by lack of oral contrast within the colon. The gallbladder is | | | absent. The liver appears within normal limits. The adrenal glands | | | and spleen appear within normal limits. At the pancreatic head | | | region a subtle rounded approximate 1 cm hypoattenuating lesion is | | | demonstrated. At the right kidney a 1.4 cm hypoattenuating lesion | | | is noted too small to definitively characterize but most typically | | | associated with cyst. Small hiatal hernia is present. Heart size | | | is mildly prominent. Atherosclerosis of the coronary artery is | | | demonstrated. The visualized bony structures demonstrate no lytic or | | | blastic bone lesions. Multilevel disk degenerative changes lumbar | | | spine is present. IMPRESSION: 1. A small amount of free air | | | is noted within the abdomen adjacent to the previously demonstrated | | | diverticulitis. Also persistent pericolonic mesenteric stranding is | | | noted at the sigmoid colon which is suggestive of continued | | | diverticulitis. 2. A small amount of air is present within the left | | | abdominal wall in region of prior drainage catheter. This finding | | | could relate to air associated with removal of the catheter, although | | | cellulitis could result in similar appearance or fistula associated | | | with colonic inflammatory process could result in similar process. 3. | | | Wall thickening sigmoid colon which could relate to an acute | | | inflammatory type process, although neoplasm is not excluded and | | | colonoscopy recommended. 4. Multilevel disk degenerative changes | | | lumbar spine. 5. Hiatal hernia. 6. Cardiomegaly. 7. Atherosclerosis | | | coronary arteries. 8. Findings suspicious for a small mucinous | | | and/or cystic lesion at the pancreatic head region. MRI recommended | | | for further evaluation. Finding is nonspecific and could relate to | | | simple cyst versus intra papillary mucinous neoplasm. D: | | | 08/18/2015 JOB #: [id number] Read By: DREW Fung | | | MD GREG Released By: DREW GARZA MD Date: 08/18/2015 | | | 21:02 | | + + + + + | Procedure Note | + + | Osito, Rad Results In - 02/12/2017 10:[address] PM [address] ABDOMEN AND PELVIS | | WITH CONTRAST: CLINICAL STATEMENT:Increasing abdominal pain after perforation | | diverticulitis 6 weeks ago. COMPARISON:CT abdomen and pelvis 07/05/2015. TECHNIQUE:Axial | | images are obtained through the abdomen and pelvis following uneventful administration | | of intravenous and oral contrast. DLP is 1175.25 mGy-cm. Call report to Dr. Diana is made | | at 1253 hours. REPORT:At the left abdominal wall musculature an air bubble is present | | within the rectus abdominis muscle. Previously in this region a drainage catheter was | | present. The catheter has been removed. Within the abdomen small air bubble is noted | | adjacent to the proximal sigmoid colon seen on image 244 left lower abdomen. Also there | | is a somewhat tract-type appearance where the drainage catheter had been placed which | | does demonstrate a small amount of air within the tract. Colonic wall thickening and | | adjacent mesenteric stranding is present at the proximal sigmoid colon in region of | | diverticula. No abscess formation or free fluid is seen. Evaluation of the colon is | | limited by lack of oral contrast within the colon. The gallbladder is absent. The liver | | appears within normal limits. The adrenal glands and spleen appear within normal | | limits. At the pancreatic head region a subtle rounded approximate 1 cm hypoattenuating | | lesion is demonstrated. At the right kidney a 1.4 cm hypoattenuating lesion is noted too | | small to definitively characterize but most typically associated with cyst. Small | | hiatal hernia is present. Heart size is mildly prominent. Atherosclerosis of the | | coronary artery is demonstrated. The visualized bony structures demonstrate no lytic or | | blastic bone lesions. Multilevel disk degenerative changes lumbar spine is present. | | IMPRESSION:1. A small amount of free air is noted within the abdomen adjacent to the | | previously demonstrated diverticulitis. Also persistent pericolonic mesenteric | | stranding is noted at the sigmoid colon which is suggestive of continued | | diverticulitis.2. A small amount of air is present within the left abdominal wall in | | region of prior drainage catheter. This finding could relate to air associated with | | removal of the catheter, although cellulitis could result in similar appearance or | | fistula associated with colonic inflammatory process could result in similar process.3. | | Wall thickening sigmoid colon which could relate to an acute inflammatory type process, | | although neoplasm is not excluded and colonoscopy recommended.4. Multilevel disk | | degenerative changes lumbar spine.5. Hiatal hernia.6. Cardiomegaly.7. Atherosclerosis | | coronary arteries.8. Findings suspicious for a small mucinous and/or cystic lesion at | | the pancreatic head region. MRI recommended for further evaluation. Finding is | | nonspecific and could relate to simple cyst versus intra papillary mucinous neoplasm. D: | | 08/18/2015JOB #: [id number] Read By: DREW GARZA MD Released By: | | DREW GARZA, MDDate: 08/18/2015 21:02 | |disk degenerative changes lumbar spine is | |present. | | | |IMPRESSION: | |1. A small amount of free air is noted within the abdomen adjacent to the previously demon strated diverticulitis. Also persistent pericolonic mesenteric stranding is noted at the si gmoid colon which is suggestive of continued diverticulitis. | |2. A small amount of air is present within the left abdominal wall in region of prior drain age catheter. This finding could relate to air associated with removal of the catheter, alt elsa cellulitis could result in similar appearance or fistula | |associated with colonic inflammatory process could result in similar process. | |3. Wall thickening sigmoid colon which could relate to an acute inflammatory type process, although neoplasm is not excluded and colonoscopy recommended. | |4. Multilevel disk degenerative changes lumbar spine. | |5. Hiatal hernia. | |6. Cardiomegaly. | |7. Atherosclerosis coronary arteries. | |8. Findings suspicious for a small mucinous and/or cystic lesion at the pancreatic head reg ion. MRI recommended for further evaluation. Finding is nonspecific and could relate to si mple cyst versus intra papillary mucinous neoplasm. | | | | | |JOB #: [id number] | | | | | |Read By: DREW GARZA MD | | | |Released By: DREW GARZA MD | |Date: 08/18/2015 21:02 | | | | | + + documented in this encounter Visit Diagnoses Not on filedocumented in this encounter"
--- OUTSIDE RECORDS SUMMARY | ~2019-02-17 | XMS | Encounter Summary ---
Demographics + + + | Address | [address] | | | [place] [address] | + + + | Home Phone | | + + + | Preferred Language | Unknown | + + + | Marital Status | | + + + | Anabaptist Affiliation | 1025 | + + + | Race | Unknown | + + + | Ethnic Group | Unknown | + + + Author + + + | Author | [facility] | | | and [place] | + + + | Organization | [facility] | | | [...] Team Providers + +------+ + | Care Catalyst Concentration Operator Name | Role | Phone | [...] Description | +--------+--------+ + + + | 03/03/ | Refill | [facility] | Horacio Silvestre, | Medication Refill | | 2017 | | [facility] | DO [address] | | | | | [facility] [address] | [facility] [place] | | | | | [address] [place], | [address] | | | | | [place] [address] | [phone] | | | | | [phone] | | | +--------+--------+ + + + [...] [place] | | | | | | [address] | | | | | | [phone] | | | | | | | | +--------+---------+ + + + | 02/26/ | Office | Urology | Lillie Fowler | | | 2018 | Visit | | LILLIE Lopez [address] | | | | | | [address] | | | | | | [place], [place] | | | | | | [address] | | | | | | [phone] | | | | | | | | +--------+---------+ + + + | 03/16/ | Office | Neurology | Theresa, | | | 2018 | Visit | | [address] | | | | | [address] [place], | | | | | | [place] [address] | | | | | | [phone] | | | | | | | | +--------+---------+ + + + | 04/12/ | Office | Primary Care | Massimo Ramos | | | 2019 | Visit | | MD Fer [address] | | | | | | [place] | | | | | | [address] | | | | | | | | +--------+---------+ + + + | 10/03/ | Office | Neurology | Fabián Carias MD | | | 2019 | Visit | | [address] | | | | | | [place] | | | | | | [address] | | | | | | | [...] | | | care | | | Child Abuse Worker-C | | | | | | | [...] | | | care | | | Child Abuse Worker-C | | | | | | | [...] | | | care | | | Child Abuse Worker-C | | | | | | | [...] | | | care | | | Child Abuse Worker-C | | | | | | | linical | + +--------+ +---+-----+ + + + | Note: Pt will | | check CBG's daily x1 | | Pt will take Lantis as | | prescribed | + + documented as of this encounter Visit Diagnoses Not on filedocumented in this encounter"
--- OUTSIDE RECORDS SUMMARY | ~2019-02-17 | XMS | Encounter Summary ---
Demographics + + + | Address | [address] | | | [place] [address] | + + + | Home Phone | | + + + | Preferred Language | Unknown | + + + | Marital Status | | + + + | Scientology Affiliation | 1025 | + + + | Race | Unknown | + + + | Ethnic Group | Unknown | + + + Author + + + | Author | [facility] | | | and [place] | + + + | Organization | [facility] | | | [...] Team Providers + +------+ + | Care Health And Safety Tech Name | Role | Phone | + +------+ + | Horacio Silvestre DO | PCP | | + +------+ + Reason for Visit +--------+ + | Reason | Comments | +--------+ + | DME | | +--------+ + Encounter Details +--------+ + + + + | Date | Type | Department | Care Team | Description | +--------+ + + + + | 10/26/ | Telephone | [facility] | GuiantonioHoracio, | DME | | 2019 | | [facility] | DO [address] | | | | | [facility] [address] | [place], [place] | | | | | [address] [place], | [address] | | | | | [place] [address] | [phone] | | | | | [phone] | | | +--------+ + + + + Social History + + + +--------+ + | Tobacco Use | Types | Packs/Day | Years | Date | | | | | Used | | + + + +--------+ + | Former Smoker | Cigarettes | 3 | 15 | Quit: 1975 | + + + +--------+ + + +---+---+---+ | Smokeless Tobacco: [...] do you have serious | No | 10/19/2018 | | difficulty hearing? | | | + + + + | Are you blind or do you have serious | No | 10/19/2018 | | difficulty seeing, even when wearing | | | | glasses? | | | + + + + | Do you have serious difficulty walking or | No | 10/19/2018 | | climbing stairs? (5 years old or older) | | | + + + + | Do you have difficulty dressing or bathing? | No | 10/19/2018 | | (5 years old or older) | | | + + + + | Because of a physical, mental, or emotional | No | 10/19/2018 | | condition, do you have difficulty [...] physical, mental, or emotional | No | 10/19/2018 | | condition, do you have serious [...] [place] | | | | | | [address] | | | | | | [phone] | | | | | | | | +--------+---------+ + + + | 02/26/ | Office | Urology | Lillie Fowler | | | 2018 | Visit | | [address] | | | | | | [address] | | | | | | [place], [place] | | | | | | [address] | | | | | | [phone] | | | | | | | | +--------+---------+ + + + | 03/16/ | Office | Neurology | Theresa, | | | 2018 | Visit | | [address] | | | | | | [address] [place], | | | | | | [place] [address] | | | | | | [phone] | | | | | | | | +--------+---------+ + + + | 04/12/ | Office | Primary Care | Massimo Ramos | | | 2019 | Visit | | MD Fer [address] | | | | | | [address] [place], [place] | | | | | | [address] | | | | | | | | +--------+---------+ + + + | 10/03/ | Office | Neurology | Fabián Carias MD | | | 2019 | Visit | | [address] | | | | | | [place] | | | | | | [address] | | | | | | | [...] | | Yes | D[place]en, | | function and decrease | yle | n of | | | Charline M, | | dehydration | | complex | | | Case | | | | care | | | Desulfurizer Hand-C | | | | | | | [...] | | | care | | | Desulfurizer Hand-C | | | | | | | [...] | | | care | | | Desulfurizer Hand-C | | | | | | | lintulio | + +--------+ +---+-----+ + + + [...] | | | care | | | Desulfurizer Hand-C | | | | | | | linical | + +--------+ +---+-----+ + + + | Note: Pt will | | check CBG's daily x1 | | Pt will take Lantis as | | prescribed | + + documented as of this encounter Visit Diagnoses + + | Diagnosis | + + | Panlobular emphysema (HCC) - Primary Other emphysema | + + documented in this encounter Additional Health Concerns + + + + | Infection | Noted Time | Resolved Time | + + + + | Methicillin-resistant Staphylococcus aureus | 07/20/2018 4:00 PM | | | | PDT | | + + + + documented as of this encounter"
--- OUTSIDE RECORDS SUMMARY | ~2019-02-17 | XMS | Encounter Summary ---
Demographics + + + | Address | [address] | | | [place] [address] | + + + | Home Phone | | + + + | Preferred Language | Unknown | + + + | Marital Status | | + + + | Mu-Ism Affiliation | 1025 | + + + | Race | Unknown | + + + | Ethnic Group | Unknown | + + + Author + + + | Author | [facility] | | | and [place] | + + + | Organization | [facility] | | [...] Team Providers + +------+ + | Care Cable Spooler Name | Role | Phone | + +------+ + | Ryan Gutiérrez MD | PCP | | + +------+ + Encounter Details +--------+ + + + + | Date | Type | Department | Care Team | Description | +--------+ + + + + | 03/07/ | Hospital | [facility] | Horacio Silvestre, | | | 2017 | Encounter | [facility] | DO [address] | | | | | [facility] | [place], [place] | | | | | [address] [place], | [address] | | | | | [place] [address] | [phone] | | | | | [phone] | | | +--------+ + + + [...] at Time of Discharge + + + +---------+ + + | Medication | Sig | Dispensed | Refills | Start | End Date | | | | | | Date | | + + + +---------+ + + | aspirin 325 mg | Take 325 mg by mouth | | 0 | | | | tablet | every morning. | | | | 9 | + + + +---------+ + + | atenolol | Take 25 mg by mouth | | 0 | | | | (TENORMIN) 25 mg | Daily. | | | | 8 | | tablet | | | | | | + + + +---------+ + + | gabapentin | Take 600 mg by mouth | | 0 | | | | (NEURONTIN) 300 mg | 3 times daily. | | | | 8 | | capsule | | | | | | + + + +---------+ + + | levoFLOXacin | Take 1 tablet by | 5 | 0 | 03/07/20 | | | (LEVAQUIN) 500 mg | mouth Daily for 5 | tablet | | 17 | 7 | | tabletIndications: | days. | | | | | | Acute non-recurrent | | | | | | | pansinusitis | | | | | | + + + +---------+ + + | levothyroxine | Take 137 mcg by | | 0 | | | | (SYNTHROID, | mouth every morning | | | | 8 | | LEVOTHROID) 137 MCG | (before breakfast). | | | | | | tablet | | | | | | + + + +---------+ + + | omeprazole | Take 20 mg by mouth | | 0 | | | | (PRILOSEC) 20 mg | every morning | | | | 8 | | capsule | (before breakfast). | | | | | + + + +---------+ + + | oxyCODONE | Take 1 tablet by | 30 | 0 | 03/03/20 | | | (ROXICODONE) 5 mg | mouth Daily. | tablet | | 17 | 7 | | tablet | | | | | | + + + +---------+ + + | pregabalin | Take 100 mg by mouth | | 0 | | | | (LYRICA) 100 mg | 2 times daily. | | | | 8 | | capsule | | | | | | + + + +---------+ + + | testosterone | Place 1 patch onto | | 0 | | | | (ANDRODERM) 2.5 | the skin Daily. | | | | 8 | | mg/24 hr | | | | | | + + + +---------+ + + documented as of this encounter [...] [place] | | | | | | [address] | | | | | | [phone] | | | | | | | | +--------+---------+ + + + | 02/26/ | Office | Urology | Lillie Fowler | | | 2018 | Visit | | [address] | | | | | | [address] | | | | | | [place], [place] | | | | | | [address] | | | | | | [phone] | | | | | | | | +--------+---------+ + + + | 03/16/ | Office | Neurology | Theresa, | | | 2018 | Visit | | [address] | | | | | | [address] [place], | | | | | | [place] [address] | | | | | | [phone] | | | | | | | | +--------+---------+ + + + | 04/12/ | Office | Primary Care | Massimo Ramos | | | 2019 | Visit | | MD Fer [address] | | | | | | [address] [place], [place] | | | | | | [address] | | | | | | | | +--------+---------+ + + + | 10/03/ | Office | Neurology | Fabián Carias MD | | | 2019 | Visit | | [address] | | | | | | [place], [place] | | | | | | [address] | | | | | | | [...] | | | care | | | Linen Keeper-C | | | | | | | [...] | | | care | | | Linen Keeper-C | | | | | | | [...] | | | care | | | Linen Keeper-C | | | | | | | [...] | | | care | | | Linen Keeper-C | | | | | | | linical | + +--------+ +---+-----+ + + + | Note: Pt will | | check CBG's daily x1 | | Pt will take Lantis as | | prescribed | + + documented as of this encounter Visit Diagnoses Not on filedocumented in this encounter"
--- OUTSIDE RECORDS SUMMARY | ~2019-02-17 | XMS | Encounter Summary ---
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 | Role | Phone | + +------+ + | Ryan Gutiérrez MD | PCP | | + +------+ + Encounter Details +--------+ + + + + | Date | Type | Department | Care Team | Description | +--------+ + + + + | 04/10/ | Hospital | [facility] | | | 2016 | Encounter | [facility] | MD [address] | | | | | [address] [place] | [place] | | | | | [place] | [address] | | | | | [address] | | | | | | [phone] | | | +--------+ + + + [...] + + documented as of this encounter Discharge Summaries Jalyn Carias MD - 04/10/2015 11:21 AM [facility] Dictating Practitioner: JALYN CARIAS MD Patient Name: LISA MCFADDEN Patient Date of : 1940 Visit Number: [id number] DISCHARGE SUMMARY The patient was seen at 7:10 in the morning. DATE OF DISCHARGE: 04/11/2015. DISCHARGE DIAGNOSIS: 1. 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 The patient presenting with dysarthria, left facial weakness and left arm numbness and paresthesias resolving spontaneously in less than 30 minutes. 2. Mild vasovagal episode/near syncope though improved. 3. Hypertension. 4. Diabetes mellitus with evidence of neuropathy, as evidenced by impaired sensory modalities and reflexes. MEDICATIONS ON DISCHARGE: 1. ASPIRIN 325 mg p.o. daily for stroke prophylaxis. 2. LIPITOR 10 mg p.o. daily. 3. FLOMAX 0.5 mg daily. 4. COZAAR 50 mg p.o. daily. 5. LEVOTHYROXINE 37 mcg daily at breakfast. 6. ATENOLOL 20 mg p.o. in the morning. 7. GABAPENTIN 300 mg p.o. 2 times a day. FOLLOW UP: The patient to followup with PCP REFUGIO Jovel in 2-3 weeks and followup with Dr. Wilver Carias in 5-6 weeks. DIAGNOSTICS: MRI of the brain without contrast shows no evidence of acute intracranial process, white disease and remote right cerebellar infarct, lacunar with mild volume loss. Carotid Doppler demonstrating no significant internal carotid stenosis. CT scan of the head shows no evidence of acute intracranial process, age-related volume loss and right cerebellar lacunar infarct. Chest x-ray shows no acute cardiopulmonary process. Most recent labs as follows: Cholesterol 100, HDL 32, triglycerides 119. Sodium 134, potassium 3.4, chloride 100, CO2 28, glucose 140, BUN 15, creatinine 1.4, GFR 52, total bilirubin 0.8, total protein 8.2, albumin 3.9, alkaline phos 60, ALT 30, AST 23, white count 11,200, hemoglobin 14, hematocrit 44, platelets 167,000. HOSPITAL COURSE: The patient was admitted for onset of transient episode of dysarthria, left facial asymmetry and left arm numbness, though improved in less than 30 minutes and patient feeling better. The patient had episode of mild vasovagal/near syncopal episode while in the hospital. The patient tried to go the bathroom and felt lightheaded, dizzy and mildly diaphoretic, though resolving spontaneously, less than a few seconds. The patient is feeling much better, with no further recurrence. The telemetry demonstrated no evidence of any cardiac arrhythmia during the episode. The patient had no further recurrence of his facial asymmetry and dysarthria with patient discharged on ASPIRIN 325 mg p. o. daily for stroke prophylaxis. He denies earache, hearing loss, headache, dysphagia, odynophagia, sore throat, chest pain, palpitations, diaphoresis, shortness of breath, abdominal pain, easy bruisability, ecchymosis, diarrhea, constipation, homicidal or suicidal ideations, weight gain or weight loss, hematuria, gait ataxia. NEUROLOGIC EXAMINATION: VITAL SIGNS: BP: 130/70 mmHg. HR: 74 per minute. RR: 18 per minute. MENTAL STATUS: Oriented to time, place and person. Speech is fluent. Able to repeat and able to name simple objects. Able to follow 3 to 4-step commands without difficulty. The patient was quite pleasant on exam. CRANIAL NERVES II-XII: Pupils are 4 mm. Equally reactive to light and accommodation. Funduscopy shows sharp disks bilaterlly,EOM intact bilaterally. No visual field cut on confrontation. No facial asymmetry. Tongue and palate are midline. There are no significant nystagmus on vertical or lateral gaze. the rest of the cranial nerves are intact MOTOR EXAMINATION: With 5+ strength with no atrophy or fasciculations. CEREBELLAR EXAMINATION: Able to perform [id number] with no significant tremors. SENSORY EXAMINATION: Mildly Impaired proprioception and vibratory sense at the toes with decreased light touch in a stocking distribution up to the ankles bilaterally. PLANTARS: Downgoing bilaterally. REFLEXES: Trace to absent throughout. GAIT: The patient ambulates without difficulty. Able to tandem gait. MISCELLANEOUS: No evidence of maxillary or frontal sinus tenderness. No tonsillopharyngeal congestion. No neck masses. Equal palpable pulses. RECOMMENDATIONS: 1. The patient can be discharged as patient is neurologically stable, continue ASPIRIN 325 mg p.o. daily for stroke prophylaxis. 2. Followup with PCP, REFUGIO Jovel in 2-3 weeks at the [place]. Followup with me Dr. Farzad Carias in 5-6 weeks. Otherwise the patient is neurologically stable. The patient was given copies of his above tests. Many thanks for allowing me to participate in the care of this patient. Cc: REFUGIO Young [id number] / [id number] Dictation Date/Time: April 11, 2015 06:04PM Attorney At Law Date/Time: April 12, 2015 10:51AM Authenticated and Edited by Jalyn Carias MD On 04/12/15 8:51:05 PM [facility] Signed and Approved by: JALYN CARIAS MD 04/12/2015 20:51:00 documented in this enc ounter Medications at Time of Discharge + + [...] [place] | | | | | | [address] | | | | | | [phone] | | | | | | | | +--------+---------+ + + + | 02/26/ | Office | Urology | Lillie Fowler | | | 2018 | Visit | | [address]ILLIE [address] | | | | | | [address] | | | | | | [place] | | | | | | [address] | | | | | | [phone] | | | | | | | | +--------+---------+ + + + | 03/16/ | Office | Neurology | Theresa, | | | 2018 | Visit | | SHONDA Mckinney [address] | | | | | [address] [place], | | | | | | [place] [address] | | | | | | [phone] | | | | | | | | +--------+---------+ + + + | 04/12/ | Office | Primary Care | Massimo Ramos | | | 2019 | Visit | | MD Fer [address] | | | | | | [address] [place] | | | | | | [address] | | | | | | | | +--------+---------+ + + + | 10/03/ | Office | Neurology | Jalyn Carias MD | | | 2020 | Visit | | [address] | | | | | | [place] | | | | | | [address] | | | | | | | [...] | | | care | | | Family Practice Doctor-C | | | | | | | [...] | | | care | | | Family Practice Doctor-C | | | | | | | [...] n of | | | Charline Dos Santos | | | | complex | | | Case | | | | care | | | Family Practice Doctor-C | | | | | | | [...] | | | care | | | Family Practice Doctor-C | | | | | | | [...] + | POC GLUCOSE, | Routin | 04/11/2015 | | Results for this | | RAPIDPOINT | e | 2:55 AM | | procedure are in the | | | | PST | | results section. | + +--------+ + + + | TROPONIN I | Routin | 04/10/2015 | | Results for this | | | e | 9:07 PM | | procedure are in the | | | | PST | | results section. | + +--------+ + + + | POC GLUCOSE, | Routin | 04/10/2015 | | Results for this | | RAPIDPOINT | e | 8:23 PM | | procedure are in the | | | | PST | | results section. | + +--------+ + + + | TROPONIN I | Routin | 04/10/2015 | | Results for this | | | e | 5:07 PM | | procedure are in the | | | | PST | | results section. | + +--------+ + + + | POC GLUCOSE, | Routin | 04/10/2015 | | Results for this | | RAPIDPOINT | e | 4:30 PM | | procedure are in the | | | | PST | | results section. | + +--------+ + + + | TROPONIN I | Routin | 04/10/2015 | | Results for this | | | e | 3:03 PM | | procedure are in the | | | | PST | | results section. | + +--------+ + + + | POC GLUCOSE, | Routin | 04/10/2015 | | Results for this | | RAPIDPOINT | e | 2:45 PM | | procedure are in the | | | | PST | | results section. | + +--------+ + + + | POC GLUCOSE, | Routin | 04/10/2015 | | Results for this | | RAPIDPOINT | e | 11:50 AM | | procedure are in the | | | | PST | | results section. | + +--------+ + + + | VAS CAROTID DUPLEX | Routin | 04/10/2015 | | Results for this | | BILATERAL | e | 11:21 AM | | procedure are in the | | | | PST | | results section. | + +--------+ + + + | MRI BRAIN WO | Routin | 04/10/2015 | | Results for this | | CONTRAST | e | 11:21 AM | | procedure are in the | | | | PST | | results section. | + +--------+ + + + | LIPID PANEL | Routin | 04/10/2015 | | Results for this | | | e | 5:30 AM | | procedure are in the | | | | PST | | results section. | + +--------+ + + + | CBC W/AUTO | Routin | 04/10/2015 | | Results for this | | DIFFERENTIAL | e | 5:30 AM | | procedure are in the | | | | PST | | results section. | + +--------+ + + + | COMPREHENSIVE | Routin | 04/10/2015 | | Results for this | | METABOLIC PANEL | e | 5:30 AM | | procedure are in the | | | | PST | | results section. | + +--------+ + + + | TROPONIN I | Routin | 04/10/2015 | | Results for this | | | e | 5:07 AM | | procedure are in the | | | | PST | | results section. | + +--------+ + + + | TSH | Routin | 04/10/2015 | | Results for this | | | e | 5:00 AM | | procedure are in the | | | | PST | | results section. | + +--------+ + + + | TROPONIN I | Routin | 04/10/2015 | | Results for this | | | e | 1:07 AM | | procedure are in the | | | | PST | | results section. | + +--------+ + + + documented in this encounter Results POC Glucose, Rapidpoint (04/11/2015 2:55 AM PST) + +-------+ + + + | Component | Value | Ref Range | Performed | Pathologist | | | | | At | Signature | + +-------+ + + + | Glucose, | 134 | 70 - 110 mg/dL | EXTERNAL [...] | | | + +---------+ + + Troponin I (04/10/2015 9:07 PM PST) + +-------+ + + + | Component | Value | Ref Range | Performed | Pathologist | | | | | At | Signature | + +-------+ + + + | Troponin I | 0.01 | <=0.10 ng/mL | EXTERNAL | | | | [...] + +---------+ + + POC Glucose, Rapidpoint (04/10/2015 8:23 PM PST) + +-------+ + + + | Component | Value | Ref Range | Performed | Pathologist | | | | | At | Signature | + +-------+ + + + | Glucose, | 151 | 70 - 110 mg/dL | EXTERNAL [...] | | | + +---------+ + + Troponin I (04/10/2015 5:07 PM PST) + +-------+ + + + | Component | Value | Ref Range | Performed | Pathologist | | | | | At | Signature | + +-------+ + + + | Troponin I | 0.01 | <=0.10 ng/mL | EXTERNAL | | | | [...] + +---------+ + + POC Glucose, [facility]point (04/10/2015 4:30 PM PST) + +-------+ + + + | Component | Value | Ref Range | Performed | Pathologist | | | | | At | Signature | + +-------+ + + + | Glucose, | 121 | 70 - 110 mg/dL | EXTERNAL [...] | | | + +---------+ + + Troponin I (04/10/2015 3:03 PM PST) + +-------+ + + + | Component | Value | Ref Range | Performed | Pathologist | | | | | At | Signature | + +-------+ + + + | Troponin I | 0.02 | <=0.10 ng/mL | EXTERNAL | | | | [...] + +---------+ + + POC Glucose, [facility]point (04/10/2015 2:45 PM PST) + +-------+ + + + | Component | Value | Ref Range | Performed | Pathologist | | | | | At | Signature | + +-------+ + + + | Glucose, | 142 | 70 - 110 mg/dL | EXTERNAL [...] + +---------+ + + POC Glucose, [facility] (04/10/2015 11:50 AM PST) + +-------+ + + + | Component | Value | Ref Range | Performed | Pathologist | | | | | At | Signature | + +-------+ + + + | Glucose, | 120 | 70 - 110 mg/dL | EXTERNAL [...] | | | + +---------+ + + MRI Brain wo Contrast (04/10/2015 11:21 AM PST) + + | Specimen | + + | | + + + + + | Narrative | Performed At | + + + | ORIGINAL MRI OF THE BRAIN: HISTORY: Transient | | | ischemic event. COMPARISON: April 10, 2015. TECHNIQUE: | | | Multiplanar, multisequence MRI of the brain was performed without | | | contrast. FINDINGS: No evidence of restricted diffusion. The | | | reinoso-white matter interface is intact. No acute hemorrhage. No | | | mass lesion. No midline shift. Basilar cisterns are patent. | | | Ventricles are symmetric. There is mild prominence of the | | | supratentorial sulci. There is mild cerebellar volume loss. There | | | is remote right cerebellar lacunar infarct. There is mild confluent | | | periventricular white matter hyperintensity. There are scattered | | | punctate subcortical frontal white matter intensities. There is | | | asymmetry to the orbits. The paranasal sinuses and mastoid air cell | | | are clear. IMPRESSION: 1. No evidence of acute intracranial | | | process. 2. Mild white matter disease is likely related to chronic | | | small vessel ischemic change. 3. 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 4. Mild age-related volume loss. The results of the | | | study were communicated to Dr. Carias at 7:15 p.m. | | | Read By: MASSIMO NUNEZ MD | | | Released By: MASSIMO NUNEZ MD Date: 04/11/2015 11:41 | | + + + + + | Procedure Note | + + | Osito, Rad Results In - 02/12/2017 9:19 PM PST ORIGINAL MRI OF THE BRAIN: | | HISTORY:Transient ischemic event. COMPARISON:April 10, 2015. TECHNIQUE:Multiplanar, | | multisequence MRI of the brain was performed without contrast. FINDINGS:No evidence of | | restricted diffusion. The reinoso-white matter interface is intact. No acute hemorrhage. | | No mass lesion. No midline shift. Basilar cisterns are patent. Ventricles are | | symmetric. There is mild prominence of the supratentorial sulci. There is mild | | cerebellar volume loss. There is remote right cerebellar lacunar infarct. There is | | mild confluent periventricular white matter hyperintensity. There are scattered punctate | | subcortical frontal white matter intensities. There is asymmetry to the orbits. The | | paranasal sinuses and mastoid air cell are clear. IMPRESSION:1. No evidence of acute | | intracranial process.2. Mild white matter disease is likely related to chronic small | | vessel ischemic change.3. Remote right cerebellar lacunar infarct.4. Mild age-related | | volume loss. The results of the study were communicated to Dr. Carias at 7:15 p.m. D: | | 04/10/2015Job#: [id number] Read By: MASSIMO NUNEZ MD Released By: MASSIMO Blackwood. | | VICKY NUNEZate: 04/11/2015 11:41 | |No evidence of restricted diffusion. The reinoso-white matter interface is intact. No acute hemorrhage. No mass lesion. No midline shift. Basilar cisterns are patent. Ventricles ar e symmetric. There is mild prominence of the supratentorial sulci. | |There is mild cerebellar volume loss. There is remote right cerebellar lacunar infarct. T here is mild confluent periventricular white matter hyperintensity. There are scattered punc orozco subcortical frontal white | |matter intensities. There is asymmetry | |to the orbits. The paranasal sinuses and mastoid air cell are clear. | | | |IMPRESSION: | |1. No evidence of acute intracranial process. | |2. Mild white matter disease is likely related to chronic small vessel ischemic change. | |3. Remote right cerebellar lacunar infarct. | |4. Mild age-related volume loss. | | | |The results of the study were communicated to Dr. Carias at 7:15 p.m. | | | | | | | | | | | | | | | |Read By: MASSIMO NUNEZ MD | | | |Released By: MASSIMO NUNEZ MD | |Date: 04/11/2015 11:41 | | | | | + + VAS Carotid Duplex Bilateral (04/10/2015 11:21 AM PST) + + | Specimen | + + | | + + + + + | Narrative | Performed At | + + + | ORIGINAL BILATERAL CAROTID DUPLEX ULTRASOUND | | | HISTORY: Transient ischemic event. FINDINGS: Color Doppler | | | interrogation of the bilateral carotid arteries was performed. There | | | is mild atherosclerosis, left greater than right, within the carotid | | | bulbs bilaterally. Peak systolic velocities are normal. Arterial | | | waveforms are appropriate. There is antegrade flow within the | | | vertebral arteries. IMPRESSION: Minimal atherosclerosis of the | | | carotid bulbs without clinically significant stenosis identified. | | | Job No.: [id number] Read By: MASSIMO NUNEZ MD | | | Released By: MASSIMO NUNEZ MD Date: 04/10/2015 13:02 | | + + + + + | Procedure Note | + + | Osito, Rad Results In - 02/12/2017 9:19 PM PST ORIGINAL BILATERAL CAROTID | | DUPLEX ULTRASOUND HISTORY:Transient ischemic event. FINDINGS:Color Doppler interrogation | | of the bilateral carotid arteries was performed. There is mild atherosclerosis, left | | greater than right, within the carotid bulbs bilaterally. Peak systolic velocities are | | normal. Arterial waveforms are appropriate. There is antegrade flow within the vertebral | | arteries. IMPRESSION:Minimal atherosclerosis of the carotid bulbs without clinically | | significant stenosis identified. Job No.: [id number] Read By: MASSIMO Fung | | MD ENRIQUE Released By: MASSIMO NUNEZ MDDate: 04/10/2015 13:02 | |FINDINGS: | |Color Doppler interrogation of the bilateral carotid arteries was performed. There is mild atherosclerosis, left greater than right, within the carotid bulbs bilaterally. Peak systoli c velocities are normal. | |Arterial waveforms are appropriate. There is | |antegrade flow within the vertebral arteries. | | | |IMPRESSION: | |Minimal atherosclerosis of the carotid bulbs without clinically significant stenosis identi fied. | | | | | |Job No.: [id number] | | | |Read By: MASSIMO NUNEZ MD | | | |Released By: MASSIMO NUNEZ MD | |Date: 04/10/2015 13:02 | | | | | + + Lipid Panel (04/10/2015 5:30 AM PST) + +-------+ + + + | Component | Value | Ref Range | Performed | Pathologist | | | | | At | Signature | + +-------+ + + + | Cholesterol | 100 | <=200 mg/dL | EXTERNAL | | | , POC | | | LAB | | + +-------+ + + + | HDL | 32 | >=40 mg/dL | EXTERNAL | | | | | | LAB | | + +-------+ + + + | Triglycerid | 119 | 30 - 200 mg/dL | EXTERNAL | | | es | | | LAB | | + +-------+ + + + | VLDL | 24 | 4 - 40 mg/dL | EXTERNAL | | | | | | LAB | | + +-------+ + + + | LDL-C | 44 | <=130 mg/dL | EXTERNAL | | | (calculated | | | LAB | | | ) | | | | | + +-------+ + + + + + | Specimen | + + | | + + + +---------+ + + | Performing | Address | City/State/Zipcode | Phone Number | | Organization | | | | + +---------+ + + | EXTERNAL LAB | | | | + +---------+ + + Comprehensive Metabolic Panel (04/10/2015 5:30 AM PST) + +-------+ + + + | Component | Value | Ref Range | Performed | Pathologist | | | | | At | Signature | + +-------+ + + + | Sodium | 134 | 132 - 143 | EXTERNAL | | | | | mmol/L | LAB | | + +-------+ + + + | Potassium | 4.2 | 3.3 - 4.9 | EXTERNAL | | | | | mmol/L | LAB | | + +-------+ + + + | Cl | 100 | 95 - 108 mmol/L | EXTERNAL | | | | | | LAB | | + +-------+ + + + | CO2 | 28 | 23 - 34 mmol/L | EXTERNAL | | | | | | LAB | | + +-------+ + + + | Anion Gap | 6 | 7 - 16 | EXTERNAL | | | | | | LAB | | + +-------+ + + + | Calcium | 9 | 8.3 - 10.0 | EXTERNAL | | | | | mg/dL | LAB | | + +-------+ + + + | Glucose | 140 | 70 - 110 mg/dL | EXTERNAL | | | | | | LAB | | + +-------+ + + + | BUN, Bld | 15 | 5 - 26 mg/dL | EXTERNAL | | | | | | LAB | | + +-------+ + + + | Creatinine | 1.4 | 0.7 - 1.4 mg/dL | EXTERNAL | | | | | | LAB | | + +-------+ + + + | BUN/Creatin | 10.7 | 7.0 - 24.0 | EXTERNAL | | | ine Ratio | | RATIO | LAB | | + +-------+ + + + | GFR | 52 | >=60 | EXTERNAL | | | ESTIMATE | | mL/min/1.73m2 | LAB | | + +-------+ + + + | Bilirubin, | 0.8 | <=1.2 mg/dL | EXTERNAL | | | Total | | | LAB | | + +-------+ + + + | Protein, | 8.2 | 6.6 - 8.5 g/dL | EXTERNAL | | | Total | | | LAB | | + +-------+ + + + | Albumin | 3.9 | 3.0 - 4.5 g/dL | EXTERNAL | | | | | | LAB | | + +-------+ + + + | Alkaline | 60 | 46 - 116 U/L | EXTERNAL | | | Phosphatase | | | LAB | | + +-------+ + + + | ALT, | 30 | 16 - 63 U/L | EXTERNAL | | | External | | | LAB | | + +-------+ + + + | AST, | 23 | <=38 U/L | EXTERNAL | | [...] +---------+ + + CBC w/ Auto Differential (04/10/2015 5:30 AM PST) + + + + + + | Component | Value | Ref Range | Performed | Pathologist | | | | | At | Signature | + + + + + + | WBC | 11.2 | 4.6 - 10.5 | EXTERNAL | | | | | 1000/mm3 | LAB | | + + + + + + | RBC | 4.85 | 4.36 - 5.83 | EXTERNAL | | | | | mil/mm3 | LAB | | + + + + + + | HGB, | 14.7 | 13.1 - 17.4 | EXTERNAL | | | External | | g/dL | LAB | | + + + + + + | HCT, | 44.6 | 39.0 - 51.9 % | EXTERNAL | | | External | | | LAB | | + + + + + + | MCV | 92 | 82 - 96 fl | EXTERNAL | | | | | | LAB | | + + + + + + | MCH | 30.3 | 27.7 - 32.3 pg | EXTERNAL | | | | | | LAB | | + + + + + + | MCHC | 33 | 32.0 - 36.9 | EXTERNAL | | | | | g/dL | LAB | | + + + + + + | RDW-CV | 15 | <=17.0 % | EXTERNAL | | | | | | LAB | | + + + + + + | RDW-SD | 48.8 | 34.0 - 57.0 fL | EXTERNAL | | | | | | LAB | | + + + + + + | Platelet | 167 | 150 - 450 | EXTERNAL | | | Count | | 1000/mm3 | LAB | | | Plasma | | | | | + + + + + + | MPV | 10.5 | 9.4 - 12.4 FL | EXTERNAL | | | | | | LAB | | + + + + + + | % Segmented | 76.9 | 42.0 - 76.0 % | EXTERNAL | | | | | | LAB | | | Neutrophils | | | | | + + + + + + | % | 8.8 | 20.0 - 40.0 % | EXTERNAL | | | Lymphocytes | | | LAB | | + + + + + + | % Monocytes | 14 | 3.0 - 13.0 % | EXTERNAL | | | | | | LAB | | + + + + + + | % | 0.1 | 0.0 - 7.0 % | EXTERNAL | | | Eosinophils | | | LAB | | + + + + + + | % Basophils | 0.2 | 0.0 - 2.0 % | EXTERNAL | | | | | | LAB | | + + + + + + | Absolute | 8.6 | 2.80 - 7.70 | EXTERNAL | | | Neutrophils | | 1000/mm3 | LAB | | + + + + + + | Absolute | 0.98 | 1.20 - 3.30 | EXTERNAL | | | Lymphocytes | | 1000/mm3 | LAB | | + + + + + + | Absolute | 1.56 | 0.00 - 0.80 | EXTERNAL | | | Monocytes | | 1000/mm3 | LAB | | + + + + + + | Absolute | 0.01 | 0.00 - 0.70 | EXTERNAL | | | Eosinophils | | 1000/mm3 | LAB | | + + + + + + | Absolute | 0.02 | 0.00 - 0.20 | EXTERNAL | [...] | | | + +---------+ + + Troponin I (04/10/2015 5:07 AM PST) + +-------+ + + + | Component | Value | Ref Range | Performed | Pathologist | | | | | At | Signature | + +-------+ + + + | Troponin I | 0.02 | <=0.10 ng/mL | EXTERNAL | | | | | | LAB | | + +-------+ + + + + + | Specimen | + + | | + + + +---------+ + + | Performing | Address | City/State/Zipcode | Phone Number | | Organization | | | | + +---------+ + + | EXTERNAL LAB | | | | + +---------+ + + TSH (04/10/2015 5:00 AM PST) + + + + + + | Component | Value | Ref Range | Performed | Pathologist | | | | | At | Signature | + + + + + + | TSH | 2.95Comment: This test | 0.40 - 4.68 | EXTERNAL | | | | was performed at | mIU/L | LAB | | | | [facility]. | | | | | | Reference Range = 0.270 | | | | | | - 4.2 | | | | + + + + + + + + | Specimen | + + | | + + + +---------+ + + | Performing | Address | City/State/Zipcode | Phone Number | | Organization | | | | + +---------+ + + | EXTERNAL LAB | | | | + +---------+ + + Troponin I (04/10/2015 1:07 AM PST) + +-------+ + + + | Component | Value | Ref Range | Performed | Pathologist | | | | | At | Signature | + +-------+ + + + | Troponin I | 0.01 | <=0.10 ng/mL | EXTERNAL | | | | [...]
--- OUTSIDE RECORDS SUMMARY | ~2019-02-17 | XMS | Encounter Summary ---
Demographics + + + | Address | [address] | | | [place] [address] | + + + | Home Phone | | + + + | Preferred Language | Unknown | + + + | Marital Status | | + + + | Pentecostal Affiliation | 1025 | + + + | Race | Unknown | + + + | Ethnic Group | Unknown | + + + Author + + + | Author | [facility] | | | and [place] | + + + | Organization | [facility] | | | and [...] Team Providers + +------+ + | Care Inside Wireman Name | Role | Phone | + +------+ + | Horacio Silvestre DO | PCP | | + +------+ + Reason for Visit + + + | Reason | Comments | + + + | Appointment | | + + + Encounter Details +--------+ + + + + | Date | Type | Department | Care Team | Description | +--------+ + + + + | 11/20/ | Telephone | [facility] | Horacio Silvestre, | Appointment | | 2019 | | [facility] | DO [address] | | | | | [facility] [address] | [facility], [place] | | | | | [address] [facility], | [address] | | | | | [place] [address] | [phone] | | | | | [phone] | | | +--------+ + + + [...] do you have serious | No | 11/04/2018 | | difficulty hearing? | | | + + + + | Are you blind or do you have serious | No | 11/04/2018 | | difficulty seeing, even when wearing | | | | glasses? | | | + + + + | Do you have serious difficulty walking or | Yes | 11/04/2018 | | climbing stairs? (5 years old or older) | | | + + + + | Do you have difficulty dressing or bathing? | No | 11/04/2018 | | (5 years old or older) | | | + + + + | Because of a physical, mental, or emotional | Yes | 11/04/2018 | | condition, do you have difficulty [...] physical, mental, or emotional | No | 11/04/2018 | | condition, do you have serious [...] | Office | General Surgery | Scott DeO liveira | | | 2018 | Visit | | Jalen, DO [address] | | | | | [address] | | | | | | [place], [place] | | | | | | [address] | | | | | | [phone] | | | | | | | | +--------+---------+ + + + | 02/26/ | Office | Urology | Lillie Fowler | | | 2018 | Visit | | LILLIE Lopez [address] | | | | | | [address] | | | | | | [place], [place] | | | | | | [address] | | | | | | [phone] | | | | | | | | +--------+---------+ + + + | 03/16/ | Office | Neurology | Theresa, | | | 2018 | Visit | | SHONDA Mckinney [address] | | | | | | [address] [place], | | | | | | [place] [address] | | | | | | [phone] | | | | | | | | +--------+---------+ + + + | 04/12/ | Office | Primary Care | Massimo Ramos | | | 2019 | Visit | | MD Fer [address] | | | | | | [place] | | | | | | [address] | | | | | | | | +--------+---------+ + + + | 10/03/ | Office | Neurology | Fabián Carias MD | | | 2019 | Visit | | [address] | | | | | | [place] | | | | | | [address] | | | | | | | [...] | | | care | | | Mine Technician-C | | | | | | | [...] | | | care | | | Mine Technician-C | | | | | | | [...] | | | care | | | Mine Technician-C | | | | | | | [...] | | | care | | | Mine Technician-C | | | | | | | linical | + +--------+ +---+-----+ + + + | Note: Pt will | | check CBG's daily x1 | | Pt will take Lantis as | | prescribed | + + documented as of this encounter Visit Diagnoses Not on filedocumented in this encounter Additional Health Concerns + + + + | Infection | Noted Time | Resolved Time | + + + + | Methicillin-resistant Staphylococcus aureus | 07/20/2018 4:00 PM | | | | PDT | | + + + + documented as of this encounter"
--- OUTSIDE RECORDS SUMMARY | ~2019-02-17 | XMS | Encounter Summary ---
Demographics + + + | Address | [address] | | | [place] [address] | + + + | Home Phone | | + + + | Preferred Language | Unknown | + + + | Marital Status | | + + + | Yazidism Affiliation | 1025 | + + + | Race | Unknown | + + + | Ethnic Group | Unknown | + + + Author + + + | Author | [facility] | | | and [place] | + + + | Organization | [facility] | | | [...] Team Providers + +------+ + | Care Sewer Pipe Offbearer Name | Role | Phone | + +------+ + | Horacio Silvestre DO | PCP | | + +------+ + Reason for Visit + + + | Reason | Comments | + + + | Appointment Question | | + + + Encounter Details +--------+ + + + + | Date | Type | Department | Care Team | Description | +--------+ + + + + | 07/13/ | Telephone | [facility] | Horacio Silvestre, | Appointment Question | | 2019 | | [facility] | [address] | | | | | MEDICAL CLINIC [address] | [facility], [place] | | | | | [address] [place], | [address] | | | | | [place] [address] | [phone] | | | | | [phone] | | | +--------+ + + + [...] do you have serious | No | 07/10/2018 | | difficulty hearing? | | | + + + + | Are you blind or do you have serious | No | 07/10/2018 | | difficulty seeing, even when wearing | | | | glasses? | | | + + + + | Do you have serious difficulty walking or | No | 07/10/2018 | | climbing stairs? (5 years old or older) | | | + + + + | Do you have difficulty dressing or bathing? | No | 07/10/2018 | | (5 years old or older) | | | + + + + | Because of a physical, mental, or emotional | No | 07/10/2018 | | condition, do you have difficulty [...] physical, mental, or emotional | No | 07/10/2018 | | condition, do you have serious [...] [place] | | | | | | [address] | | | | | | [phone] | | | | | | | | +--------+---------+ + + + | 02/26/ | Office | Urology | Lillie Fowler | | | 2019 | Visit | | LILLIE Lopez [address] | | | | | | [address] | | | | | | [place], [place] | | | | | | [address] | | | | | | [phone] | | | | | | | | +--------+---------+ + + + | 03/16/ | Office | Neurology | Theresa, | | | 2018 | Visit | | SHONDA Mckinney [address] | | | | | | [address] [place], | | | | | | [place] [address] | | | | | | [phone] | | | | | | | | +--------+---------+ + + + | 04/12/ | Office | Primary Care | Richard Massimo Hsi | | | 2019 | Visit | | MD Fer [address] | | | | | | [place] | | | | | | [address] | | | | | | | | +--------+---------+ + + + | 10/03/ | Office | Neurology | Fabián Carias MD | | | 2019 | Visit | | [address] | | | | | | [place] | | | | | | [address] | | | | | | | [...] | | Yes | Allsen, | | function and decrease | yle | n of | | | Charline Dos Santos, | | dehydration | | complex | | | Case | | | | care | | | Research Executive-C | | | | | | | [...] | | | care | | | Research Executive-C | | | | | | | [...] | | | care | | | Research Executive-C | | | | | | | [...] | | | care | | | Research Executive-C | | | | | | | linical | + +--------+ +---+-----+ + + + | Note: Pt will | | check CBG's daily x1 | | Pt will take Lantis as | | prescribed | + + documented as of this encounter Visit Diagnoses Not on filedocumented in this encounter"
--- OUTSIDE RECORDS SUMMARY | ~2019-02-17 | XMS | Encounter Summary ---
Demographics + + + | Address | [address] | | | [place] [address] | + + + | Home Phone | | + + + | Preferred Language | Unknown | + + + | Marital Status | | + + + | Hoahaoism Affiliation | 1025 | + + + | Race | Unknown | + + + | Ethnic Group | Unknown | + + + Author + + + | Author | [facility] | | | and [place] | + + + | Organization | [facility] | | | [...] Team Providers + +------+ + | Care Sales Representative [employer] Name | Role | Phone | + +------+ + | Horacio Silvestre DO | PCP | | + +------+ + Reason for Visit + + + | Reason | Comments | + + + | Care Coordination | | + + + Encounter Details +--------+ + + + + | Date | Type | Department | Care Team | Description | +--------+ + + + + | 12/02/ | Telephone | [facility] | Charline Banks, | Care Coordination | | 2019 | | [facility] | Case | | | | | MEDICAL CLINIC [address] | Dental Scheduler-Clinical | | | | | [address] [facility] [place], | | | | | | [place] [address] | | | | | | [phone] | | | +--------+ + + + [...] [place] | | | | | | [address] | | | | | | [phone] | | | | | | | | +--------+---------+ + + + | 02/26/ | Office | Urology | Lillie Fowler | | | 2018 | Visit | | LILLIE Lopez [address] | | | | | | [address] | | | | | | [place], [place] | | | | | | [address] | | | | | | [phone] | | | | | | | | +--------+---------+ + + + | 03/16/ | Office | Neurology | Theresa, | | | 2018 | Visit | | SH[address]DA Mck[address]ney [address] | | | | | | [address] [place], | | | | | | [place] [address] | | | | | | [phone] | | | | | | | | +--------+---------+ + + + | 04/12/ | Office | Primary Care | Massimo Ramos | | | 2019 | Visit | | MD Fer [address] | | | | | | [place] | | | | | | [address] | | | | | | | | +--------+---------+ + + + | 10/03/ | Office | Neurology | Fabián Carias MD | | | 2019 | Visit | | [address] | | | | | | [place] | | | | | | [address] | | | | | | | [...] | | | care | | | Dental Scheduler-C | | | | | | | [...] | | | care | | | Dental Scheduler-C | | | | | | | [...] | | | care | | | Dental Scheduler-C | | | | | | | [...] | | | care | | | Dental Scheduler-C | | | | | | | [...]
--- OUTSIDE RECORDS SUMMARY | ~2019-02-17 | XMS | Encounter Summary ---
Demographics + + + | Address | [address] | | | [place] [address] | + + + | Home Phone | | + + + | Preferred Language | Unknown | + + + | Marital Status | | + + + | Mosque Affiliation | 1025 | + + + [...] Team Providers + +------+ + | Care Sexual Assault Counselor Name | Role | Phone | + +------+ + | Rayn Gutiérrez MD | PCP | | + +------+ + Reason for Visit +--------+ + | Reason | Comments | +--------+ + | Other | Sinus congestion | +--------+ + Encounter Details +--------+---------+ + + + | Date | Type | Department | Care Team | Description | +--------+---------+ + + + | 03/07/ | Office | [facility] | Horacio Silvestre, | Acute non-recurrent | | 2017 | Visit | [facility] | DO [address] [place] | pansinusitis | | | | MEDICAL CLINIC [address] | [facility], [place] | (Primary Dx) | | | | [address] [place], | [address] | | | | | [place] [address] | [phone] | | | | | [phone] | | | +--------+---------+ + + + Social History [...] + + + | Blood Pressure | 132/76 | 03/07/2017 10:05 AM | | | | | PST | | + + + + + | Pulse | 70 | 03/07/2017 10:05 AM | | | | | PST | | + + + + + | Temperature | 36.7 C (98.1 F) | 03/07/2017 10:05 AM | | | | | PST | | + + + + + | Respiratory Rate | 16 | 03/07/2017 10:05 AM | | | | | PST | | + + + + + | Oxygen Saturation | 93% | 03/07/2017 10:05 AM | | | | | PST | | + + + + + | Inhaled Oxygen | - | - | | | Concentration | | | | + + + + + | Weight | 93.9 kg (207 lb) | 03/07/2017 10:05 AM | | | | | PST | | + + + + + | Height | - | - | | + + + + + | Body Mass Index | 33.41 | 02/19/2017 1:07 PM | | | | | PST | | + + + + + documented in this encounter Patient Instructions Patient Instructions Horacio Silvestre DO - 03/07/2017 10:20 AM PST Acute Sinusitis Acute sinusitis isirritation and swelling of the sinuses. It is usuallycaused by a susan l infection after a common cold. Your doctor can help you find relief. What is acute sinusitis? Sinuses are air-filled spaces in the skull behind the face. They are kept moist and clean b y a lining of mucosa. Things such as pollen, smoke, and chemical fumes can irritate the muco sa. It can then swell up. As a response to irritation, the mucosa makes more mucus and other fluids. Tiny hairlike cilia cover the mucosa. Cilia help carry mucus toward the opening of the sinus. Too much mucus may cause the cilia to stop working. This blocks the sinus opening . A buildup of fluid in the sinuses then causes pain and pressure. It can also encourage bety teria to grow in the sinuses. Common symptoms of acute sinusitis You may have: Facial sorenesspain Headache Fever Fluid draining in the back of the throat (postnasal drip) Congestion Drainage that is thick and colored, instead of clear Cough Diagnosing acute sinusitis Yourdoctor will ask about your symptoms and health history.He or she will look at your ear, nose, and throat. You usually won't need to have X-rays taken. The doctor may take asample of mucus to check for bacteria. If you havesinusitis that k eeps coming back, you may need imaging tests such asX-rays or CAT scans. This will help yo ur doctorcheck for a structural problem that may be causingthe infection. Treating acute sinusitis Treatment is aimed atunblocking the sinus opening and helping the cilia work again. You m ay need to take antihistamine and decongestant medicine. These can reduce inflammation and d ecrease the amount of fluid your sinuses make. If you have a bacterial infection, you will n eed to takeantibiotic medicine for 10 to 14 days. Take this medicine until it is gone, gris n if you feel better. Date Last Reviewed: 01/06/201619992989-3926 [employer]. [address] [place] [address], [place] [address]. All righ ts reserved. This information is not intended as a substitute for professional medical care. Always follow your healthcare professional's instructions. documented in this encounter Progress Notes Horacio Silvestre DO - 03/07/2017 10:00 AM PSTFormatting of this note might be different f rom the original. Patient ID: Geraldo Mcfadden is a 76 y.o. year old male Chief Complaint: Chief Complaint Patient presents with Other Sinus congestion Assessment and Plan: 1. Acute non-recurrent pansinusitis Fluids, rest, OTC analgesics. - levoFLOXacin (LEVAQUIN) 500 mg tablet; Take 1 tablet by mouth Daily for 5 days. Dispense : 5 tablet; Refill: 0 Subjective: Sinusitis This is a new problem. The current episode started 1 to 4 weeks ago. The problem has been g radually worsening since onset. There has been no fever. Associated symptoms include congest ion, coughing, ear pain, a hoarse voice and sinus pressure. Pertinent negatives include no c hills or sore throat. Past treatments include antibiotics. The treatment provided no relief. Allergies: Allergies Allergen Reactions Zolpidem Anaphylaxis Medications: Current Outpatient Prescriptions Medication Sig Dispense Refill aspirin 325 mg tablet Take 325 mg by mouth Daily. atenolol (TENORMIN) 25 mg tablet Take 25 mg by mouth Daily. gabapentin (NEURONTIN) 300 mg capsule Take 600 mg by mouth 3 times daily. levoFLOXacin (LEVAQUIN) 500 mg tablet Take 1 tablet by mouth Daily for 5 days. 5 tablet 0 levothyroxine (SYNTHROID, LEVOTHROID) 137 MCG tablet Take 137 mcg by mouth every mornin g (before breakfast). omeprazole (PRILOSEC) 20 mg capsule Take 20 mg by mouth every morning (before breakfast ). oxyCODONE (ROXICODONE) 5 mg tablet Take 1 tablet by mouth Daily. 30 tablet 0 pregabalin (LYRICA) 100 mg capsule Take 100 mg by mouth 2 times daily. testosterone (ANDRODERM) 2.5 mg/[address] 1 patch onto the skin Daily. No current facility-administered medications for this visit. Review of Systems Constitutional: Negative for chills. HENT: Positive for congestion, ear pain, hoarse voice and sinus pressure. Negative for sore throat. Respiratory: Positive for cough. Objective: Vitals: BP 132/76 | Pulse 70 | Temp 36.7 C (98.1 F) | Resp 16 | Wt 93.9 kg (207 lb) | SpO2 93% | BMI 33.41 kg/m Physical Exam Constitutional: He appears well-developed and well-nourished. No distress. HENT: Head: Normocephalic and atraumatic. Nose: Rhinorrhea present. Mouth/Throat: Posterior oropharyngeal erythema present. Cardiovascular: Normal rate, regular rhythm, normal heart sounds and intact distal pulses. Exam reveals no gallop and no friction rub. No murmur heard. Pulmonary/Chest: Effort normal and breath sounds normal. No respiratory distress. He has no wheezes. He has no rales. Skin: He is not diaphoretic. Nursing note and vitals reviewed. documented in this encounter Plan of Treatment [...] [place] | | | | | | [address] | | | | | | [phone] | | | | | | | | +--------+---------+ + + + | 02/26/ | Office | Urology | Lillie Fowler | | | 2018 | Visit | | LILLIE Lopez [address] | | | | | | [address] | | | | | | [place] | | | | | | [address] | | | | | | [phone] | | | | | | | | +--------+---------+ + + + | 03/16/ | Office | Neurology | Theresa, | | | 2018 | Visit | | SHONDA Mckinney [address] | | | | | [address] [place], | | | | | | [place] [address] | | | | | | [phone] | | | | | | | | +--------+---------+ + + + | 04/12/ | Office | Primary Care | Massimo Ramos | | | 2019 | Visit | | MD Fer [address] | | | | | | [place] | | | | | | [address] | | | | | | | | +--------+---------+ + + + | 10/03/ | Office | Neurology | Fabián Carias MD | | | 2019 | Visit | | [address] | | | | | | [place] | | | | | | [address] | | | | | | | [...] | | | care | | | Senior Category Manager-C | | | | | | | [...] | | | care | | | Senior Category Manager-C | | | | | | | [...] | | | care | | | Senior Category Manager-C | | | | | | | [...] | | | care | | | Senior Category Manager-C | | | | | | | linical | + +--------+ +---+-----+ + + + | Note: Pt will | | check CBG's daily x1 | | Pt will take Lantis as | | prescribed | + + documented as of this encounter Visit Diagnoses + + | Diagnosis | + + | Acute non-recurrent pansinusitis - Primary | + + documented in this encounter"
--- OUTSIDE RECORDS SUMMARY | ~2019-02-17 | XMS | Encounter Summary ---
Demographics + + + | Address | [address] | | | [place] [address] | + + + | Home Phone | | + + + | Preferred Language | Unknown | + + + | Marital Status | | + + + | Nondenominational Affiliation | 1025 | + + + | Race | Unknown | + + + | Ethnic Group | Unknown | + + + Author + + + | Author | [facility] | | | and [place] | + + + | Organization | [facility] | | | [...] Team Providers + +------+ + | Care Drill Punch Operator Name | Role | Phone | + +------+ + | Ryan Gutiérrez MD | PCP | | + +------+ + Encounter Details +--------+ + + + + | Date | Type | Department | Care Team | Description | +--------+ + + + + | 10/14/ | Hospital | [facility] | Conversion | | | 2014 | Encounter | [facility] | Transaction, | | | | | THERAPY [address] | Provider Unknown | | | | | [address] [place], [place] | | | | | | [address] | (Fax) | | | | | [phone] | | | +--------+ + + + [...] [place] | | | | | | [address] | | | | | | [phone] | | | | | | | | +--------+---------+ + + + | 02/26/ | Office | Urology | Lillie Fowler | | | 2018 | Visit | | LILLIE Lopez [address] | | | | | | [address] | | | | | | [place] | | | | | | [address] | | | | | | [phone] | | | | | | | | +--------+---------+ + + + | 03/16/ | Office | Neurology | Theresa, | | | 2018 | Visit | | SHONDA [address] | | | | | | [address] [place], | | | | | | [place] [address] | | | | | | [phone] | | | | | | | | +--------+---------+ + + + | 04/12/ | Office | Primary Care | Massimo Ramos | | | 2019 | Visit | | MD Fer [address] | | | | | | [place] | | | | | | [address] | | | | | | | | +--------+---------+ + + + | 10/03/ | Office | Neurology | Fabián Carias MD | | | 2019 | Visit | | [address] | | | | | | [place] | | | | | | [address] | | | | | | | [...] | | | care | | | Floor Surfacer-C | | | | | | | [...] | | | care | | | Floor Surfacer-C | | | | | | | [...] | | | care | | | Floor Surfacer-C | | | | | | | [...] | | | care | | | Floor Surfacer-C | | | | | | | linical | + +--------+ +---+-----+ + + + | Note: Pt will | | check CBG's daily x1 | | Pt will take Lantis as | | prescribed | + + documented as of this encounter Visit Diagnoses Not on filedocumented in this encounter"
--- OUTSIDE RECORDS SUMMARY | ~2019-02-17 | XMS | Encounter Summary ---
Demographics + + + | Address | [address] | | | [place] [address] | + + + | Home Phone | | + + + | Preferred Language | Unknown | + + + | Marital Status | | + + + | Restorationism Affiliation | 1025 | + + + | Race | Unknown | + + + | Ethnic Group | Unknown | + + + Author + + + | Author | [facility] | | | and [place] | + + + | Organization | [facility] | | | and [place] | + + + | Address | Unknown | + + + | Phone | Unavailable | + + + Support + + +---------+ + | Name | Relationship | Address | Phone | + + +---------+ + | Ella cMfadden | ECON | Unknown | | + + +---------+ + | Juan Mcfadden | ECON | Unknown | | + + +---------+ + Care Team Providers + +------+ + | Care Health Therapist Name | Role | Phone | + +------+ + | Ryan Gutiérrez MD | PCP | | + +------+ + Encounter Details +--------+ + + + + | Date | Type | Department | Care Team | Description | +--------+ + + + + | 12/05/ | Hospital | [facility] | Christ Quintero, | | | 2017 | Encounter | [facility] | DO [address] , | | | | | [address] [place] [address] | [place], [place] | | | | | [place], [place] | [address] | | | | | [address] | [phone] | | | | | [phone] | | | +--------+ + + + [...] + + +---------+ + + | aspirin 81 mg EC | Take 81 mg by mouth | | 0 | | | | tablet | Daily. | | | | 7 | + + + +---------+ + + [...] +---------+ + + | oxyCODONE | Take 5 mg by mouth | | 0 | 10/24/19 | | | (ROXICODONE) 5 mg | Daily. | | | 17 | 7 | | [...] [place] | | | | | | [address] | | | | | | [phone] | | | | | | | | +--------+---------+ + + + | 02/26/ | Office | Urology | Malcolm Lillie | | | 2018 | Visit | | LILLIE Lopez [address] | | | | | [address] | | | | | | [place], [place] | | | | | | [address] | | | | | | [phone] | | | | | | | | +--------+---------+ + + + | 03/16/ | Office | Neurology | Theresa, | | | 2018 | Visit | | SHONDA M[address] | | | | | [address] [place], | | | | | | [place] [address] | | | | | | [phone] | | | | | | | | +--------+---------+ + + + | 04/12/ | Office | Primary Care | Massimo Ramos | | | 2019 | Visit | | MD Fer [address] | | | | | | [place] | | | | | | [address] | | | | | | | | +--------+---------+ + + + | 10/03/ | Office | Neurology | Fabián Carias MD | | | 2019 | Visit | | [address] | | | | | | [place] | | | | | | [address] | | | | | | | [...] | | | care | | | Vtc Technician-C | | | | | | [...] | | | care | | | Vtc Technician-C | | | | | | [...] | | | care | | | Vtc Technician-C | | | | | | [...] | | | care | | | Vtc Technician-C | | | | | | [...] | + +--------+ + + + | XR WRIST LEFT 3 + VW | Routin | 12/05/2016 | | Results for this | | | e | 9:51 AM | | procedure are in the | | | | PDT | | results section. | + +--------+ + + + documented in this encounter Results XR Wrist Left 3 + Vw (12/05/2016 9:51 AM PDT) + + | Specimen | + + | | + + + + + | Narrative | Performed At | + + + | EXAMINATION: ORTHO WRIST 3+ VIEW LEFT HISTORY: right wrist | | | pain COMPARISON STUDY: October 03, 2016 FINDINGS: Films in | | | multiple projections show [id number] articulation of the distal | | | radius with the scaphoid. Subchondral cyst within the distal radius. | | | Lunate bone cysts are also noted. Scapholunate interval is wide | | | measuring 7 mm. The capitate articulates with the lunate. | | | Degenerative change of the 1st carpometacarpal joint. No | | | dislocation. No acute fracture. Decreased bone mineral density. | | | IMPRESSION: Osteoarthritis of the wrist. Scapholunate | | | dissociation suggest carpal instability.. JOB #: [id number] | | | Digitally Released by: Massimo Nunez Read By: MASSIMO Fung | | | MD ENRIQUE Date: 12/05/2016 12:35 | | + + + + + | Procedure Note | + + | Osito, Rad Results In - 04/17/2017 1:36 PM PST EXAMINATION: | | ORTHO WRIST 3+ VIEW LEFT | | | | HISTORY: | | right wrist pain | | | | COMPARISON STUDY: | | October 03, 2016 | | | | FINDINGS: | | Films in multiple projections show [id number]-[id number] articulation of the distal | | radius with the scaphoid. Subchondral cyst within the distal radius. Lunate | | bone cysts are also noted. Scapholunate interval is wide measuring 7 mm. The | | capitate articulates with the lunate. Degenerative change of the 1st | | carpometacarpal joint. No dislocation. No acute fracture. Decreased bone | | mineral density. | | | | IMPRESSION: | | Osteoarthritis of the wrist. Scapholunate dissociation suggest carpal | | instability.. | | | | | | JOB #: [id number] | | Digitally Released by: Massimo Nunez | | | | | | Read By: MASSIMO NUNEZ MD | | Date: 12/05/2016 12:35 | | | + + documented in this encounter Visit Diagnoses Not on filedocumented in this encounter"
--- OUTSIDE RECORDS SUMMARY | ~2019-02-17 | XMS | Encounter Summary ---
Demographics + + + | Address | [address] | | | [place] [address] | + + + | Home Phone | | + + + | Preferred Language | Unknown | + + + | Marital Status | | + + + | Hoahaoism Affiliation | 1025 | + + + | Race | Unknown | + + + | Ethnic Group | Unknown | + + + Author + + + | Author | [facility] | | | and [place] | + + + | Organization | [facility] | | [...] Team Providers + +------+ + | Care Apparel Manufacture Instructor Name | Role | Phone | + +------+ + | Ryan Gutiérrez MD | PCP | | + +------+ + Encounter Details +--------+ + + + + | Date | Type | Department | Care Team | Description | +--------+ + + + + | 01/31/ | [facility] | Horacio Silvestre, | | | 2016 | Encounter | [facility] | DO [address] | | | | | MEDICAL [facility] | [place], [place] | | | | | [address] [facility], | [address] | | | | | [place] [address] | [phone] | | | | | [phone] | | | +--------+ + + + [...] [place] | | | | | | [address] | | | | | | [phone] | | | | | | | | +--------+---------+ + + + | 02/26/ | Office | Urology | Lillie Fowler | | | 2018 | Visit | | LILLIE Lopez [address] | | | | | | [address] | | | | | | [place] | | | | | | [address] | | | | | | [phone] | | | | | | | | +--------+---------+ + + + | 03/16/ | Office | Neurology | Theresa, | | | 2018 | Visit | | [address] | | | | | | [address] [place], | | | | | | [place] [address] | | | | | | [phone] | | | | | | | | +--------+---------+ + + + | 04/12/ | Office | Primary Care | Massimo Ramos | | | 2019 | Visit | | MD Fer [address] | | | | | | [address] [place] | | | | | | [address] | | | | | | | | +--------+---------+ + + + | 10/03/ | Office | Neurology | Fabián Carias MD | | | 2019 | Visit | | [address] | | | | | | [place] | | | | | | [address] | | | | | | | [...] | | | care | | | Medical Laboratory Manager-C | | | | | | [...] | | Yes | Dresen, | | management | yle | n of | | | Charline Dos Santos, | | | | complex | | | Case | | | | care | | | Medical Laboratory Manager-C | | | | | | [...] | | | care | | | Medical Laboratory Manager-C | | | | | | [...] | | | care | | | Medical Laboratory Manager-C | | | | | | | linical | + +--------+ +---+-----+ + + + | Note: Pt will | | check CBG's daily x1 | | Pt will take Lantis as | | prescribed | + + documented as of this encounter Visit Diagnoses Not on filedocumented in this encounter"
--- OUTSIDE RECORDS SUMMARY | ~2019-02-17 | XMS | Encounter Summary ---
Demographics + + + | Address | [address] | | | [place] [address] | + + + | Home Phone | | + + + | Preferred Language | Unknown | + + + | Marital Status | | + + + | Jewish Affiliation | 1025 | + + + | Race | Unknown | + + + | Ethnic Group | Unknown | + + + Author + + + | Author | [facility] | | | and [place] | + + + | Organization | [facility] | | | and [...] Team Providers + +------+ + | Care Small Kick Press Operator Name | Role | Phone | + +------+ + | Horacio Silvestre DO | PCP | | + +------+ + Reason for Visit + + + | Reason | Comments | + + + | Home Health | | + + + Encounter Details +--------+ + + + + | Date | Type | Department | Care Team | Description | +--------+ + + + + | 10/29/ | Telephone | [place] [facility] | Horacio Silvestre, | Home Health | | 2019 | | [facility] | DO [address] | | | | | MEDICAL CLIN[address] | [facility] [place] | | | | | [address] [place], | [address] | | | | | [place] [address] | [phone] | | | | | [phone] | | | +--------+ + + + [...] [place] | | | | | | [address] | | | | | | [phone] | | | | | | | | +--------+---------+ + + + | 02/26/ | Office | Urology | Lillie Fowler | | | 2018 | Visit | | [address]IE Lopez [address] | | | | | | [address] | | | | | | [place], [place] | | | | | | [address] | | | | | | [phone] | | | | | | | | +--------+---------+ + + + | 03/16/ | Office | Neurology | Theresa, | | | 2018 | Visit | | [address] | | | | | | [address] [place], | | | | | | [place] [address] | | | | | | [phone] | | | | | | | | +--------+---------+ + + + | 04/12/ | Office | Primary Care | Massimo Ramos | | | 2019 | Visit | | MD Fer [address] | | | | | | [place] | | | | | | [address] | | | | | | | | +--------+---------+ + + + | 10/03/ | Office | Neurology | Fabián Carias MD | | | 2019 | Visit | | [address] | | | | | | [place] | | | | | | [address] | | | | | | | [...] | | | care | | | Writing Manager-C | | | | | | [...] | | | care | | | Writing Manager-C | | | | | | [...] | | | care | | | Writing Manager-C | | | | | | [...] | | | care | | | Writing Manager-C | | | | | | [...]
--- OUTSIDE RECORDS SUMMARY | ~2019-02-17 | XMS | Encounter Summary ---
Demographics + + + | Address | [address] | | | [place] [address] | + + + | Home Phone [...] Team Providers + +------+ + | Care Commutator Undercutter Name | Role | Phone | + +------+ + | Horacio Silvestre DO | PCP | | + +------+ + Reason for Visit +---------+ + | Reason | Comments | +---------+ + | Results | | +---------+ + Encounter Details +--------+ + + + + | Date | Type | Department | Care Team | Description | +--------+ + + + + | 03/20/ | Telephone | [place] [facility] | Horacio Silvestre, | Results | | 2017 | | [facility] | DO [address] | | | | | MEDICAL CLIN[address] | [facility], [place] | | | | | [address] [place], | [address] | | | | | [place] [address] | [phone] | | | | | [phone] | | | +--------+ + + + [...] 02/25/ | Office | General Surgery | Soctt De Oliveira | | | 2019 | Visit | | DO Jalen [address] | | | | | | [address] | | | | | | [place] | | | | | | [address] | | | | | | [phone] | | | | | | | | +--------+---------+ + + + | 02/26/ | Office | Urology | Lillie Fowler | | | 2018 | Visit | | [address] | | | | | | [address] | | | | | | [place], [place] | | | | | | [address] | | | | | | [phone] | | | | | | | | +--------+---------+ + + + | 03/16/ | Office | Neurology | Theresa, | | | 2018 | Visit | | [address] | | | | | | [address] [place], | | | | | | [place] [address] | | | | | | [phone] | | | | | | | | +--------+---------+ + + + | 04/12/ | Office | Primary Care | Massimo Ramos | | | 2019 | Visit | | MD Fer [address] | | | | | | [place] | | | | | | [address] | | | | | | | | +--------+---------+ + + + | 10/03/ | Office | Neurology | Fabián Carias MD | | | 2020 | Visit | | [address] | | | | | | [place] | | | | | | [address] | | | | | | | [...] | | | care | | | Tubing 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-C | | | | | | [...] | | | care | | | Tubing 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-C | | | | | | [...] | | | care | | | Tubing 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-C | | | | | | [...] | | | care | | | Tubing 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-C | | | | | | | linical | + +--------+ +---+-----+ + + + | Note: Pt will | | check CBG's daily x1 | | Pt will take Lantis as | | prescribed | + + documented as of this encounter Visit Diagnoses Not on filedocumented in this encounter"
--- OUTSIDE RECORDS SUMMARY | ~2019-02-17 | XMS | Encounter Summary ---
Demographics + + + | Address | [address] | | | [place] [address] | + + + | Home Phone | | + + + | Preferred Language | Unknown | + + + | Marital Status | | + + + | Judaism Affiliation | 1025 | + + + | Race | Unknown | + + + | Ethnic Group | Unknown | + + + Author + + + | Author | [facility] | | | and [place] | + + + | Organization | [facility] | | | [...] Team Providers + +------+ + | Care Technician Support Engineer Name | Role | Phone | + +------+ + PCP | Unavailable | + +------+ + Encounter Details +--------+ + + + + | Date | Type | Department | Care Team | Description | +--------+ + + + + | 07/21/ | Hospital | [place] [facility] | Juan Williamson | | | 2009 | Encounter | [facility] | MD [address] | | | | | CENTER [address] | [facility] | | | | | DR [place], [place] | [place] [address] | | | | | [address] | [phone] | | | | | [phone] | | | +--------+ + + + + Social History + +-------+ +--------+------+ | Tobacco Use | Types | Packs/Day | Years | Date | | | | | Used | | + +-------+ +--------+------+ | Never Assessed | | | | | + +-------+ +--------+------+ + + + | Sex Assigned at [...] [place] | | | | | | [address] | | | | | | [phone] | | | | | | | | +--------+---------+ + + + | 02/26/ | Office | Urology | Lillie Fowler | | | 2018 | Visit | | [address]ILLIE Lopez [address] | | | | | | [address] | | | | | | [place], [place] | | | | | | [address] | | | | | | [phone] | | | | | | | | +--------+---------+ + + + | 03/16/ | Office | Neurology | Theresa, | | | 2018 | Visit | | [address] | | | | | | [address] [place], | | | | | | [place] [address] | | | | | | [phone] | | | | | | | | +--------+---------+ + + + | 04/12/ | Office | Primary Care | Massimo Ramos Pedro Luis | | | 2019 | Visit | | MD Fer [address] | | | | | | [place] | | | | | | [address] | | | | | | | | +--------+---------+ + + + | 10/03/ | Office | Neurology | Fabián Carias MD | | | 2019 | Visit | | [address] | | | | | | [place] | | | | | | [address] | | | | | | | [...] | | | care | | | Electric Power Line Repairer-C | | | | | | | [...] | | | care | | | Electric Power Line Repairer-C | | | | | | | [...] | | | care | | | Electric Power Line Repairer-C | | | | | | | linical | + +--------+ +---+-----+ + + + | Note: Will take | | medications as prescribe | | with managing his | | med ian jackman. | + + + +--------+ +---+-----+ + | Decrease blood sugars | Lifest | Coordinatio | | Yes | Allsen, | | | yle | n of | | | Charline Dos Santos, | | | | complex | | | Case | | | | care | | | Electric Power Line Repairer-C | | | | | | | linical | + +--------+ +---+-----+ + + + | Note: Pt will | | check CBG's daily x1 | | Pt will take Lantis as | | prescribed | + + documented as of this encounter Visit Diagnoses Not on filedocumented in this encounter"
--- OUTSIDE RECORDS SUMMARY | ~2019-02-17 | XMS | Encounter Summary ---
Demographics + + + | Address | [address] | | | [place] [address] | + + + | Home Phone | | + + + | Preferred Language | Unknown | + + + | Marital Status | | + + + | Taoism Affiliation | 1025 | + + + | Race | Unknown | + + + | Ethnic Group | Unknown | + + + Author + + + | Author | [facility] | | | and [place] | + + + | Organization | [facility] | | [...] Team Providers + +------+ + | Care Batch Plant Supervisor Name | Role | Phone | + +------+ + | Horacio Silvestre DO | PCP | | + +------+ + Encounter Details +--------+ + + + + | Date | Type | Department | Care Team | Description | +--------+ + + + + | 05/04/ | Orders Only | [facility] [facility] | Horacio Silvestre, | | | 2017 | | [facility] | DO [address] | | | | | MEDICAL CLIN[address] | [place], [place] | | | | | [address] [place], | [address] | | | | | [place] [address] | [phone] | | | | | [phone] | | | +--------+ + + + [...] [place] | | | | | | [address] | | | | | | [phone] | | | | | | | | +--------+---------+ + + + | 02/26/ | Office | Urology | Lillie Fowler | | | 2018 | Visit | | [address]IE [address] | | | | | | [address] | | | | | | [place], [place] | | | | | | [address] | | | | | | [phone] | | | | | | | | +--------+---------+ + + + | 03/16/ | Office | Neurology | Theresa, | | | 2018 | Visit | | [address] | | | | | | [address] [place], | | | | | | [place] [address] | | | | | | [phone] | | | | | | | | +--------+---------+ + + + | 04/12/ | Office | Primary Care | Massimo Ramos | | | 2019 | Visit | | MD Fer [address] | | | | | | [address] [place], [place] | | | | | | [address] | | | | | | | | +--------+---------+ + + + | 10/03/ | Office | Neurology | Fabián Carias MD | | | 2019 | Visit | | [address] | | | | | | [place] | | | | | | [address] | | | | | | | [...] | | | care | | | Shipyard Painter-C | | | | | | | [...] | | | care | | | Shipyard Painter-C | | | | | | | [...] | | | care | | | Shipyard Painter-C | | | | | | | [...] | | | care | | | Shipyard Painter-C | | | | | | | linical | + +--------+ +---+-----+ + + + | Note: Pt will | | check CBG's daily x1 | | Pt will take Lantis as | | prescribed | + + documented as of this encounter Visit Diagnoses Not on filedocumented in this encounter"
--- OUTSIDE RECORDS SUMMARY | ~2019-02-17 | XMS | Encounter Summary ---
Demographics + + + | Address | [address] | | | [place] [address] | + + + | Home Phone | | + + + | Preferred Language | Unknown | + + + | Marital Status | | + + + | Yazidi Affiliation | 1025 | + + + | Race | Unknown | + + + | Ethnic Group | Unknown | + + + Author + + + | Author | [facility] | | | and [place] | + + + | Organization | [facility] | | | and [...] Team Providers + +------+ + | Care Director Service Name | Role | Phone | + +------+ + | Massimo Ramos MD | PCP | | + +------+ + Reason for Visit + + + | Reason | Comments | + + + | Appointment Question | | + + + Encounter Details +--------+ + + + + | Date | Type | Department | Care Team | Description | +--------+ + + + + | 01/21/ | Telephone | [facility] [facility] | Massimo Ramos | Appointment Question | | 2019 | | [facility] | MD Fer [address] | | | | | MEDICAL CLIN[address] | [place] | | | | | [address] [place], | [address] | | | | | [place] [address] | | | | | | [phone] | | | +--------+ + + + [...] deaf or do you have serious | Yes | 12/12/2018 | | difficulty hearing? | | | + + + + | Are you blind or do you have serious | No | 12/12/2018 | | difficulty seeing, even when wearing | | | | glasses? | | | + + + + | Do you have serious difficulty walking or | Yes - uses single | 12/12/2018 | | climbing stairs? (5 years old or older) | point cane | | + + + + | Do you have difficulty dressing or bathing? | No | 12/12/2018 | | (5 years old or older) | | | + + + + | Because of a physical, mental, or emotional | No | 12/12/2018 | | condition, do you have difficulty [...] physical, mental, or emotional | Yes | 12/12/2018 | | condition, do you have serious [...] [place] | | | | | | [address] | | | | | | [phone] | | | | | | | | +--------+---------+ + + + | 02/26/ | Office | Urology | Lillie Fowler | | | 2018 | Visit | | LILLIE Lopez [address] | | | | | | [address] | | | | | | [place], [place] | | | | | | [address] | | | | | | [phone] | | | | | | | | +--------+---------+ + + + | 03/16/ | Office | Neurology | Theresa, | | | 2018 | Visit | | [address] | | | | | | [address] [place], | | | | | | [place] [address] | | | | | | [phone] | | | | | | | | +--------+---------+ + + + | 04/12/ | Office | Primary Care | Massimo Ramos | | | 2019 | Visit | | MD Fer [address] | | | | | | [place] | | | | | | [address] | | | | | | | | +--------+---------+ + + + | 10/03/ | Office | Neurology | Fabián Carias MD | | | 2019 | Visit | | [address] | | | | | | [place] | | | | | | [address] | | | | | | | [...] | | | care | | | Shaker Operator-C | | | | | | [...] | | | care | | | Shaker Operator-C | | | | | | [...] | n of | | | Charline Levon, | | | | complex | | | Case | | | | care | | | Shaker Operator-C | | | | | | | linical | + +--------+ +---+-----+ + + + | Note: Will take | | medications as prescribe | | with managing his | | med minddrake weekly. | + + + +--------+ +---+-----+ + | Decrease blood sugars | Lifest | Coordinatio | | Yes | Jocelyn, | | | yle | n of | | | Charline M, | | | | complex | | | Case | | | | care | | | Shaker Operator-C | | | | | | [...]
--- OUTSIDE RECORDS SUMMARY | ~2019-02-17 | XMS | Encounter Summary ---
Demographics + + + | Address | [address] | | | [place] [address] | + + + | Home Phone | | + + + | Preferred Language | Unknown | + + + | Marital Status | | + + + | Moravian Affiliation | 1025 | + + + | Race | Unknown | + + + | Ethnic Group | Unknown | + + + Author + + + | Author | [facility] | | | and [place] | + + + | Organization | [facility] | | | [...] Team Providers + +------+ + | Care Synthetic Soil Blocks Pulper Name | Role | Phone | + +------+ + | Horacio Silvestre DO | PCP | | + +------+ + Reason for Referral Diagnostic/Screening (Routine) +--------+--------+ + + + + | Status | Reason | Specialty | Diagnoses / | Referred By | Referred To | | | | | Procedures | Contact | Contact | +--------+--------+ + + + + | Closed | | Radiology | Diagnoses | Carias, | Cc Wgr Mri | | | | | Chronic low | Fabián Panda, | [address] | | | | | back pain | MD [address] | | | | | without | [address], | [place], [place] | | | | | sciatica, | [place] | [address] | | | | | unspecified | [place], [place] | Phone: | | | | | back pain | [address] | [phone] | | | | | laterality | Phone: | Fax: | | | | | Procedures | [phone] | [phone] | | | | | MRI Lumbar | Fax: | | | | | | Spine wo | [phone] | | | | | | Contrast | | | +--------+--------+ + + + + Reason for Visit Diagnostic/Screening (Routine) +--------+--------+ + + + + | Status | Reason | Specialty | Diagnoses / | Referred By | Referred To | | | | | Procedures | Contact | Contact | +--------+--------+ + + + + | Closed | | Radiology | Diagnoses | Carias, | Cc Wgr Mri | | | | | Chronic low | Fabián Panda, | [address] | | | | | back pain | MD [address] | [address] | | | | | without | [address], | [place], [place] | | | | | sciatica, | [place] | [address] | | | | | unspecified | [place], [place] | Phone: | | | | | back pain | [address] | [phone] | | | | | laterality | Phone: | Fax: | | | | | Procedures | [phone] | [phone] | | | | | MRI Lumbar | Fax: | | | | | | Spine wo | [phone] | | | | | | Contrast | | | +--------+--------+ + + + + Encounter Details +--------+ + + + + | Date | Type | Department | Care Team | Description | +--------+ + + + + | 01/30/ | Hospital | [facility] | Fabián Carias MD | Chronic low back | | 2018 | Encounter | Hospital MRI [address] | [address] | pain without | | | | [address] | [place], [place] | sciatica, | | | | [place], [place] | [address] | unspecified back | | | | [address] | | pain laterality | | | | [phone] | | | +--------+ + + + [...] + + + +---------+ + + | albuterol 90 | Inhale 2 puffs into | 1 | 1 | 07/06/19 | | | mcg/puff | the lungs every 4 | Inhaler | | 18 | 9 | | inhalerIndications: | hours as needed for | | | | | | Upper respiratory | Wheezing. [place] | | | | | | tract infection, | coughing | | | | | | unspecified type | | | | | | + + + +---------+ + + | aspirin 325 mg | Take 325 mg by mouth | | 0 | | | | tablet | every morning. | | | | 9 | + + + +---------+ + + | atorvaSTATin | Take 1 tablet by | 90 | 3 | 01/30/20 | | | (LIPITOR) 10 mg | mouth nightly. | tablet | | 18 | 8 | | tablet | | | | | | + + + +---------+ + + | colchicine 0.6 mg | Take 0.6 mg by mouth | | 0 | | | | tablet | every morning. | | | | 8 | + + + +---------+ + + | cyanocobalamin | Take 1,000 mcg by | | 0 | | | | (VITAMIN B-12) 1000 | mouth every morning. | | | | 8 | | MCG tablet | | | | | | + + + +---------+ + + | fluticasone | 2 sprays by Nasal | 16 g | 1 | 01/23/20 | | | (FLONASE) 50 | route nightly as | | | 18 | 9 | | mcg/nasal spray | needed for | | | | | | | Allergies. | | | | | + + + +---------+ + + | insulin aspart | Inject 10 Units | | 0 | | | | (NOVOLOG) 100 | under the skin every | | | | 9 | | units/mL injection | morning (before | | | | | | | breakfast). Checks | | | | | | | BG 30 minutes after | | | | | | | eating+Additional 15 | | | | | | | units for BG >250 | | | | | + + + +---------+ + + | insulin glargine | Inject 35 Units | 3 vial | 5 | 10/01/19 | | | (LANTUS) 100 | under the skin | | | 18 | 9 | | units/mL injection | nightly. 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 Use | | | | | | Type 2 diabetes | with Lantus and | | | | | | mellitus without | Novolog | | | | | | complication, with | | | | | | | long-term current | | | | | | | use of insulin ([facility]) | | | | | | + + + +---------+ + + | levothyroxine | Take 1 tablet by | 90 | 3 | 06/02/19 | | | (SYNTHROID) 175 MCG | mouth every morning | tablet | | 18 | 8 | | tablet | (before breakfast). | | | | | + + + +---------+ + + | losartan (COZAAR) | Take 50 mg by mouth | | 0 | | | | 50 mg tablet | every morning. | | | | 9 | + + + +---------+ + + | naproxen | Take 500 mg by mouth | | 0 | | | | (NAPROSYN) 500 mg | 2 times daily (with | | | | 9 | | tablet | breakfast & | | | | | | | dinner). | | | | | + + + +---------+ + + | omeprazole | Take 1 capsule by | 90 | 0 | 01/09/20 | | | (PRILOSEC) 20 mg | mouth every morning | capsule | | 18 | 8 | | capsule | (before breakfast). | | | | | + + + +---------+ + + | ondansetron | Take 1 tablet by | 20 | 0 | 08/22/19 | | | (ZOFRAN ODT) 4 mg | mouth every 6 hours | tablet | | 18 | 8 | | disintegrating | as needed for Nausea | | | | | | tabletIndications: | or Vomiting. | | | | | | Intractable vomiting | | | | | | | with nausea, | | | | | | | unspecified vomiting | | | | | | | type | | | | | | + + + +---------+ + + | oxyCODONE 10 MG | Take 1 tablet by | 84 | 0 | 01/09/20 | | | TABSIndications: | mouth 3 times daily | tablet | | 18 | 8 | | Multilevel | as needed for Pain. 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 | capsule | | 18 | 8 | | capsuleIndications: | | | | | | | Multilevel | 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 | | | | | | + + + +---------+ + + | tamsulosin | Take 1 capsule by | 90 | 3 | 10/01/19 | | | (FLOMAX) 0.4 mg | mouth nightly. | capsule | | 18 | 9 | | CAPSIndications: | | | | | | | Benign prostatic | | | | | | | hyperplasia without | | | | | | | lower urinary tract | | | | | | | symptoms | | | | | | + + + +---------+ + + | traZODone | Take 100 mg by mouth | | 0 | | | | (DESYREL) 50 mg | nightly. | | | | 8 | | [...] [place] | | | | | | [address] | | | | | | [phone] | | | | | | | | +--------+---------+ + + + | 02/26/ | Office | Urology | Lillie Fowler | | | 2018 | Visit | | LILLIE Lopez [address] | | | | | | [address] | | | | | | [place], [place] | | | | | | [address] | | | | | | [phone] | | | | | | | | +--------+---------+ + + + | 03/16/ | Office | Neurology | Theresa, | | | 2018 | Visit | | SHONDA [address] | | | | | [address] [place], | | | | | | [place] [address] | | | | | | [phone] | | | | | | | | +--------+---------+ + + + | 04/12/ | Office | Primary Care | Massimo Ramos | | | 2019 | Visit | | MD Fer [address] | | | | | | [place] | | | | | | [address] | | | | | | | | +--------+---------+ + + + | 10/03/ | Office | Neurology | Fabián Carias MD | | | 2019 | Visit | | [address] | | | | | | [place] | | | | | | [address] | | | | | | | [...] | | | care | | | Administrative Appeals Tribunal Member-C | | | | | | | [...] | | | care | | | Administrative Appeals Tribunal Member-C | | | | | | | [...] | | | care | | | Administrative Appeals Tribunal Member-C | | | | | | | [...] | | | care | | | Administrative Appeals Tribunal Member-C | | | | | | | [...] + +--------+ + + + | MRI LUMBAR SPINE WO | Routin | 01/30/2018 | Chronic low back | Results for this | | CONTRAST | e | 10:04 AM | pain without | procedure are in the | | | | PDT | sciatica, | results section. | | | | | unspecified back | | | | | | pain laterality | | + +--------+ + + + documented in this encounter Results MRI Lumbar Spine wo Contrast (01/30/2018 10:04 AM PDT) + + | Specimen | + + | | + + + + + | Impressions | Performed At | + + + | IMPRESSION: There is multilevel degenerative change of the spine as | [facility] | | sequentially detailed above. Correlation with dermatomal | | | distribution of symptoms is recommended. Dictated by: Massimo Hughes | | [place] | | | 11:17 AM | | + + + + + + | Narrative | Performed At | + + + | EXAMINATION: MRI LUMBAR SPINE WO CONTRAST HISTORY: persistent | [facility] | | low back pain with radiculopathy COMPARISON STUDY: December 26 | | | 2015 TECHNIQUE: Multiplanar multi sequence MRI of the lumbar | | | spine was performed without contrast. FINDINGS: There are 5 | | | lbw-fuv-btskenk lumbar vertebral bodies. There is straightening of | | | the lumbar spine. Marrow signal intensity is physiologic. There is | | | disc height loss at all levels. Endplate productive changes present | | | L1 through L5. Diffuse disc desiccation The conus terminates at the | | | T12-L1 level. L1-L2: Small central 5 mm disc herniation indents | | | ventral thecal sac. Mild central stenosis. No foraminal narrowing. | | | L2-L3: Moderate broad-based disc osteophyte complex indents the | | | ventral thecal sac and results in mild focal central stenosis. Mild | | | facet hypertrophy. No foraminal narrowing. Scratch L3-L4: | | | Moderate broad-based disc osteophyte complex as a more prominent right | | | paracentral and foraminal component. Moderate central stenosis. | | | Moderate right foraminal narrowing. Mild left foraminal narrowing. | | | Mild facet hypertrophy. L4-L5: Broad-based disc bulge flattens | | | ventral thecal sac. Mild central stenosis. Moderate facet | | | hypertrophy. Minimal foraminal narrowing. L5-S1: Broad-based | | | disc osteophyte complex, small. No central stenosis. Minimal facet | | | hypertrophy. No foraminal narrowing. No facet hypertrophy. | | | Rudimentary S1-S2 disc. The SI joints are symmetric. Paraspinous | | | soft tissues are grossly unremarkable. Visualized abdominal viscera | | | unremarkable. | | + + + + + | Procedure Note | + + | Osito, Rad Results In - 01/30/2018 11:21 AM PDT EXAMINATION:MRI LUMBAR SPINE WO | | CONTRASTHISTORY:persistent low back pain with radiculopathyCOMPARISON STUDY:December | | 2015TECHNIQUE:Multiplanar multi sequence MRI of the lumbar spine was performed | | without contrast.FINDINGS:There are 5 abz-dgp-xgivboc lumbar vertebral bodies.There is | | straightening of the lumbar spine.Marrow signal intensity is physiologic.There is disc | | height loss at all levels.Endplate productive changes present L1 through L5.Diffuse disc | | desiccationThe conus terminates at the T12-L1 level.L1-L2: Small central 5 mm disc | | herniation indents ventral thecal sac. Mild central stenosis. No foraminal | | narrowing.L2-L3: Moderate broad-based disc osteophyte complex indents the ventral thecal | | sac and results in mild focal central stenosis. Mild facet hypertrophy. No foraminal | | narrowing. ScratchL3-L4: Moderate broad-based disc osteophyte complex as a more | | prominent right paracentral and foraminal component. Moderate central stenosis. | | Moderate right foraminal narrowing. Mild left foraminal narrowing. Mild facet | | hypertrophy.L4-L5: Broad-based disc bulge flattens ventral thecal sac. Mild central | | stenosis. Moderate facet hypertrophy. Minimal foraminal narrowing.L5-S1: Broad-based | | disc osteophyte complex, small. No central stenosis. Minimal facet hypertrophy. No | | foraminal narrowing. No facet hypertrophy.Rudimentary S1-S2 disc.The SI joints are | | symmetric. Paraspinous soft tissues are grossly unremarkable. Visualized abdominal | | viscera unremarkable.IMPRESSION: IMPRESSION:There is multilevel degenerative change of | | the spine as sequentially detailed above. Correlation with dermatomal distribution of | | symptoms is recommended.Dictated by: Massimo Hutchinsonam | | | |L2-L3: Moderate broad-based disc osteophyte complex indents the ventral thecal sac and resu lts in mild focal central stenosis. Mild facet hypertrophy. No foraminal narrowing. Scrat ch | | | |L3-L4: Moderate broad-based disc osteophyte complex as a more prominent right paracentral a nd foraminal component. Moderate central stenosis. Moderate right foraminal narrowing. Mi ld left foraminal narrowing. Mild facet hypertrophy. | | | |L4-L5: Broad-based disc bulge flattens ventral thecal sac. Mild central stenosis. Moderat e facet hypertrophy. Minimal foraminal narrowing. | | | |L5-S1: Broad-based disc osteophyte complex, small. No central stenosis. Minimal facet hyp ertrophy. No foraminal narrowing. No facet hypertrophy. | | | |Rudimentary S1-S2 disc. | | | |The SI joints are symmetric. Paraspinous soft tissues are grossly unremarkable. Visualize d abdominal viscera unremarkable. | | | |IMPRESSION: | |IMPRESSION: | |There is multilevel degenerative change of the spine as sequentially detailed above. Corre lation with dermatomal distribution of symptoms is recommended. | | | |Dictated by: Massimo Alba | | | | | + + + +---------+ + + | Performing | Address | City/State/Zipcode | Phone Number | | Organization | | | | + +---------+ + + | [facility] | | | | + +---------+ + + documented in this encounter Visit Diagnoses + + | Diagnosis | + + | Chronic low back pain without sciatica, unspecified back pain laterality | + + documented in this encounter
--- OUTSIDE RECORDS SUMMARY | ~2019-02-17 | XMS | Encounter Summary ---
Demographics + + + | Address | [address] | | | [place] [address] | + + + | Home Phone | | + + + | Preferred Language | Unknown | + + + | Marital Status | | + + + | Confucianist Affiliation | 1025 | + + + | Race | Unknown | + + + | Ethnic Group | Unknown | + + + Author + + + | Author | [facility] | | | and [place] | + + + | Organization | [facility] | | | [...] Team Providers + +------+ + | Care Shellfish Grower Name | Role | Phone | + [...] | | | CENTER [address] | [facility] | | | | | [address] [place], [place] | [place] [address] | | | | | [address] | [phone] | | | | | [phone] | | | +--------+ + + + [...] [place] | | | | | | [address] | | | | | | [phone] | | | | | | | | +--------+---------+ + + + | 02/26/ | Office | Urology | Lillie Fowler | | | 2018 | Visit | | LILLIE Lopez [address] | | | | | | [address] | | | | | | [place], [place] | | | | | | [address] | | | | | | [phone] | | | | | | | | +--------+---------+ + + + | 03/16/ | Office | Neurology | Theresa, | | | 2018 | Visit | | SHONDA [address] | | | | [address] [place], | | | | | | [place] [address] | | | | | | [phone] | | | | | | | | +--------+---------+ + + + | 04/12/ | Office | Primary Care | Massimo Ramos Pedro Luis | | | 2019 | Visit | | MD Fer [address] | | | | | | [place] | | | | | | [address] | | | | | | | | +--------+---------+ + + + | 10/03/ | Office | Neurology | Fabián Carias MD | | | 2019 | Visit | | [address] | | | | | | [place] | | | | | | [address] | | | | | | | [...] | | | care | | | Sheet Metal Shop Helper-C | | | | | | | [...] | | | care | | | Sheet Metal Shop Helper-C | | | | | | | [...] | | | care | | | Sheet Metal Shop Helper-C | | | | | | | [...] | | | care | | | Sheet Metal Shop Helper-C | | | | | | | linical | + +--------+ +---+-----+ + + + | Note: Pt will | | check CBG's daily x1 | | Pt will take Lantis as | | prescribed | + + documented as of this encounter Visit Diagnoses Not on filedocumented in this encounter"
--- OUTSIDE RECORDS SUMMARY | ~2019-02-17 | XMS | Encounter Summary ---
Demographics + + + | Address | [address] | | | [place] [address] | + + + | Home Phone | | + + + | Preferred Language | Unknown | + + + | Marital Status | | + + + | Alevism Affiliation | 1025 | + + + | Race | Unknown | + + + | Ethnic Group | Unknown | + + + Author + + + | Author | [facility] | | | and [place] | + + + | Organization | [facility] | | [...] Team Providers + +------+ + | Care Addiction Professional Name | Role | Phone | + +------+ + | Horacio Silvestre DO | PCP | | + +------+ + Reason for Visit + + + | Reason | Comments | + + + | ED Follow-up | | + + + Encounter Details +--------+ + + + + | Date | Type | Department | Care Team | Description | +--------+ + + + + | 04/14/ | Telephone | [facility] | Rober Banegas, | ED Follow-up | | 2019 | | HOSP[facility] OP CASE | ELECT[employer]IC [employer]ER [address] , | | | | | [address] [place], | | | | | [address] [place] | [place] [address] | | | | | [place], [place] | [phone] | | | | | [address] | | | | | | [phone] | | | +--------+ + + + [...] [place] | | | | | | [address] | | | | | | [phone] | | | | | | | | +--------+---------+ + + + | 02/26/ | Office | Urology | Lillie Fowler | | | 2018 | Visit | | LILLIE Lopez [address] | | | | | | [address] | | | | | | [place], [place] | | | | | | [address] | | | | | | [phone] | | | | | | | | +--------+---------+ + + + | 03/16/ | Office | Neurology | Theresa, | | | 2018 | Visit | | SHONDA M[address] | | | | [address] [place], | | | | | | [place] [address] | | | | | | [phone] | | | | | | | | +--------+---------+ + + + | 04/12/ | Office | Primary Care | Massimo Ramos | | | 2019 | Visit | | MD Fer [address] | | | | | | [place] | | | | | | [address] | | | | | | | | +--------+---------+ + + + | 10/03/ | Office | Neurology | Fabián Carias MD | | | 2019 | Visit | | [address] | | | | | | [place] | | | | | | [address] | | | | | | | [...] | | | care | | | Road Crossing Guard-C | | | | | | | [...] | | | care | | | Road Crossing Guard-C | | | | | | | [...] | | | care | | | Road Crossing Guard-C | | | | | | | [...] | | | care | | | Road Crossing Guard-C | | | | | | | linical | + +--------+ +---+-----+ + + + | Note: Pt will | | check CBG's daily x1 | | Pt will take Lantis as | | prescribed | + + documented as of this encounter Visit Diagnoses Not on filedocumented in this encounter"
--- OUTSIDE RECORDS SUMMARY | ~2019-02-17 | XMS | Encounter Summary ---
Demographics + + + | Address | [address] | | | [place] [address] | + + + | Home Phone | | + + + | Preferred Language | Unknown | + + + | Marital Status | | + + + | Sabianism Affiliation | 1025 | + + + | Race | Unknown | + + + | Ethnic Group | Unknown | + + + Author + + + | Author | [facility] | | | and [place] | + + + | Organization | [facility] | | [...] Team Providers + +------+ + | Care Data Analyst Report Writer Name | Role | Phone | + +------+ + | Massimo Ramos MD | PCP | | + +------+ + Reason for Visit + + + | Reason | Comments | + + + | Weakness | | + + + Encounter Details +--------+ + + + + | Date | Type | Department | Care Team | Description | +--------+ + + + + | 01/12/ | Emergency | [facility] | Cyn Noble, DO | Acute | | 2019 | | [facility] | [address] [place] | medication-induced | | | | CENTER [address] | [place] [address] | akathisia (Primary | | | | [place], [place] | [phone] | Dx); Dehydration; | | | | [address] | | Subclinical | | | | [phone] | | hyperthyroidism; | | | | | | Acute renal | | | | | | insufficiency | +--------+ + + + + Social [...] + + + | Blood Pressure | 124/82 | 01/12/2019 1:15 PM | | | | | PDT | | + + + + + | Pulse | 104 | 01/12/2019 1:15 PM | | | | | PDT | | + + + + + | Temperature | 35.6 C (96.1 F) | 01/12/2019 10:42 AM | | | | | PDT | | + + + + + | Respiratory Rate | 17 | 01/12/2019 1:15 PM | | | | | PDT | | + + + + + | Oxygen Saturation | 95% | 01/12/2019 10:53 AM | | | | | PDT | | + + + + + | Inhaled Oxygen | - | - | | | Concentration | | | | + + + + + | Weight | 86.2 kg (190 lb) | 01/12/2019 10:42 AM | | | | | PDT | | + + + + + | Height | 167.6 cm (5' 6") | 01/12/2019 10:42 AM | | | | | PDT | | + + + + + | Body Mass Index | 30.67 | 01/12/2019 10:42 AM | | | | | PDT [...] (5 years old or older) | point mariliae | | + + + + | [...] + documented as of this encounter Discharge Instructions Instructions Cyn Noble, - 01/12/2019Follow-up with your regular doctor. Call today o r tomorrow morning for an appointment for reevaluation as soon as possible. If symptoms wor sen, do not improve in the next 2 days, or you have any further concerns see your doctor or return to the nearest emergency department as needed for reevaluation. SPEAK TO YOUR DOCTOR ABOUT YOUR ELEVATED THYROID HORMONE. You may need medication adjustme nts. Avoid taking Methamphetamines. This medication can give you strange uncontrollable movemen ts and cause heart attacks or strokes. You are dehydrated and your kidneys have been injured slightly as a result. Increase your clear liquid intake. Clear liquids include water, juice, Gatorade, Powerade, 7-Up, Sprite, manuel tova or any other fluid that does not contain caffeine or alcohol. Caffeine and alcoh ol cause dehydration. Try and drink 8 ounces of liquid every hour while you're awake until feeling better or your urine is nearly clear like water. Take over the counter Benadryl 50 mg by mouth every 6 hours as needed for return of irregul ar movements. AttachmentsThe following attachments cannot be sent through Care Everywhere.Renal Insuffici ency (Tamazight)Drug Reaction, Other (Tamazight)Dehydration (Adult) (Tamazight)Hyperthyroidism (En karine)documented in this encounter Medications at Time of Discharge + + + +---------+ + + | Medication | Sig | Dispensed | Refills | Start | End Date | | | | | | Date | | + + + +---------+ + + | albuterol 2.5 mg/3 | Take 3 mLs by | 360 | 0 | 07/15/20 | | | mL nebulizer | nebulization every 4 | vial | | 19 | | | solution | hours as needed for | | | | | | | Shortness of | | | | | | | Breath. | | | | | + + + +---------+ + + | | Take 3 mLs by | 360 mL | 0 | 07/15/20 | | | albuterol-ipratropiu | nebulization every 6 | | | 19 | | | m 2.5-0.5 mg/3 mL | hours. | | | | | | SOLN | | | | | | + + + +---------+ + + | amLODIPine | Take 10 mg by mouth | | 0 | | | | (NORVASC) 10 MG | every morning. | | | | | | tablet | | | | | | + + + +---------+ + + | aspirin 325 mg | Take 325 mg by mouth | | 0 | | | | tablet | every morning. | | | | | + + + +---------+ + + | atorvaSTATin | Take 2 tablets by | 60 | 5 | 01/08/20 | | | (LIPITOR) 10 mg | mouth nightly. | tablet | | 19 | | | tabletIndications: | | | | | | | Type 2 diabetes | | | | | | | mellitus with other | | | | | | | specified | | | | | | | complication, | | | | | | | without long-term | | | | | | | current use of | | | | | | | insulin (HCC) | | | | | | + + + +---------+ + + | cholecalciferol | Take 2,000 Units by | | 0 | | | | (VITAMIN D-3) 1000 | mouth every morning. | | | | | | units TABS | | | | | | + + + +---------+ + + | clopidogrel | Take 75 mg by mouth | | 0 | | | | (PLAVIX) 75 mg | every morning. | | | | | | tablet | | | | | | + + + +---------+ + + | cyanocobalamin | Take 1,000 mcg by | | 0 | | | | (VITAMIN B-12) 1000 | mouth every morning. | | | | | | MCG tablet | | | | | | + + + +---------+ + + | DULoxetine | Take 60 mg by mouth | | 0 | | | | (CYMBALTA) [address] | every morning. | | | | | | capsule | | | | | | + + + +---------+ + + | | Take 1-2 tablets by | 14 | 0 | 12/13/19 | | | HYDROcodone-acetamin | mouth every 4 hours | tablet | | 19 | | | ophen (NORCO) 5-325 | as needed for Pain. | | | | | | mg per tablet | | | | | | + + + +---------+ + + | insulin glargine | Inject 60 Units | 18 mL | 0 | 12/13/19 | | | (LANTUS) 100 | under the skin | | | 19 | | | units/mL injection | nightly. | | | | | | (vial) | | | | | | + + + +---------+ + + | losartan (COZAAR) | Take 1 tablet by | 90 | 0 | 12/03/19 | | | 50 mg tablet | mouth every morning. | tablet | | 19 | | + + + +---------+ + + | pregabalin | Take 300 mg by mouth | | 0 | | | | (LYRICA) 300 MG | 2 times daily. | | | | | | capsule | | | | | | + + + +---------+ + + | tamsulosin | Take 0.4 mg by mouth | | 0 | | | | (FLOMAX) 0.4 mg CAPS | nightly. | | | | | + + + +---------+ + + | testosterone | Place 1 patch onto | | 0 | | | | (ANDRODERM) 2 mg/24 | the skin nightly. | | | | | | hr | | | | | | + + + +---------+ + + | traMADol (ULTRAM) | Take 1 tablet by | 30 | 0 | 11/13/19 | | | 50 mg tablet | mouth every 8 hours | tablet | | 19 | | | | as needed. | | | | | + + + +---------+ + + | traZODone | Take 100 mg by mouth | | 0 | | | | (DESYREL) 100 mg | nightly. | | | | | | tablet | | | | | | + + + +---------+ + + | levothyroxine | Take 2.5 tablets by | 75 | 2 | 10/20/19 | | | (SYNTHROID) 100 mcg | mouth every morning | tablet | | 19 | 9 | | tablet | (before breakfast) | | | | | | | for 90 days. | | | | | + + [...] [place] | | | | | | [address] | | | | | | [phone] | | | | | | | | +--------+---------+ + + + | 02/26/ | Office | Urology | Lillie Fowler | | | 2018 | Visit | | LILLIE Lopez [address] | | | | | | [address] | | | | | | [place], [place] | | | | | | [address] | | | | | | [phone] | | | | | | | | +--------+---------+ + + + | 03/16/ | Office | Neurology | Theresa, | | | 2018 | Visit | | SHONDA Mckinney [address] [place], | | | | | | [place] [address] | | | | | | [phone] | | | | | | | | +--------+---------+ + + + | 04/12/ | Office | Primary Care | Massimo Ramos | | | 2019 | Visit | | MD Fer [address] | | | | | | [address] [place], [place] | | | | | | [address] | | | | | | | | +--------+---------+ + + + | 10/03/ | Office | Neurology | Fabián Carias MD | | | 2019 | Visit | | [address] | | | | | | [place], [place] | | | | | | [address] | | | | | | | | +--------+---------+ + + + + +------+--------+ + + | Name | Type | Priori | Associated Diagnoses | Date/Time | | | | ty | | | + +------+--------+ + + | ED INFORMATION | BRIT | Routin | | 01/12/2019 10:39 AM | | EXCHANGE | | e | | PDT | + +------+--------+ + + documented as of this encounter [...] | | | care | | | Mortgage Loan Originator-C | | | | | | | [...] | | | care | | | Mortgage Loan Originator-C | | | | | | | [...] | | | care | | | Mortgage Loan Originator-C | | | | | | | [...] | | | care | | | Mortgage Loan Originator-C | | | | | | | [...] + | URINALYSIS WITH | STAT | 01/12/2019 | | Results for this | | MICROSCOPIC WITH | | 11:43 AM | | procedure are in the | | CULTURE IF INDICATED | | PDT | | results section. | + +--------+ + + + | DRUGS OF ABUSE, | STAT | 01/12/2019 | | Results for this | | SCREEN, URINE | | 11:43 AM | | procedure are in the | | | | PDT | | results section. | + +--------+ + + + | CBC WITH | STAT | 01/12/2019 | | Results for this | | DIFFERENTIAL | | 11:38 AM | | procedure are in the | | | | PDT | | results section. | + +--------+ + + + | TSH | Add-On | 01/12/2019 | | Results for this | | | | 11:38 AM | | procedure are in the | | | | PDT | | results section. | + +--------+ + + + | T4, FREE | Add-On | 01/12/2019 | | Results for this | | | | 11:38 AM | | procedure are in the | | | | PDT | | results section. | + +--------+ + + + | COMPREHENSIVE | STAT | 01/12/2019 | | Results for this | | METABOLIC PANEL | | 11:38 AM | | procedure are in the | | | | PDT | | results section. | + +--------+ + + + documented in this encounter Results Urinalysis with Microscopic with Culture if Indicated (01/12/2019 11:43 AM PDT) + + + + + + | Component | Value | Ref Range | Performed | Pathologist | | | | | At | Signature | + + + + + + | Color | Aria (A) | Pale Yellow, | [facility] | | | | | Yellow | [facility] | | | | | | [facility] | | + + + + + + | Clarity | Clear | Clear | [place] | | | | | | [facility] | | | | | [facility] | | + + + + + + | pH, Urine | 5.0 | 5.0 - 7.0 | [place] | | | | | | [facility] | | | | | | [facility] | | + + + + + + | Specific | 1.025 | 1.003 - 1.030 | [place] | | | [place] | | | [facility] | | | | | | [facility] | | + + + + + + | Protein, | 100 mg/dL (A) | Negative | [place] | | | Urine | | | [facility] | | | | | | [facility] | | + + + + + + | Blood, | 10 zi/uL (A) | Negative | [place] | | | Urine | | | [facility] | | | | | | [facility] | | + + + + + + | Glucose, | 250 mg/dL (A) | Normal | [place] | | | Urine | | | [facility] | | | | | | [facility] | | + + + + + + | Ketones, | 15 mg/dL (A) | Negative | [place] | | | Urine | | | [facility] | | | | | | [facility] | | + + + + + + | Bilirubin, | 1 mg/dL (A) | Negative | [place] | | | Urine | | | [facility] | | | | | | [facility] | | + + + + + + | Nitrite, | Negative | Negative | [place] | | | Urine | | | [facility] | | | | | | [facility] | | + + + + + + | Leukocyte | 25 jony/uL (A) | Negative | [place] | | | Esterase, | | | [facility] | | | Urine | | | [facility] | | | | | | [facility]AT[facility] | | + + + + + + | Urobilinoge | 1 mg/dL | 0-1.0 mg/dL | [place] | | | n, Urine | | | [facility] | | | | | | [facility] | | + + + + + + | Ictotest | Positive (A) | Negative | [facility] | | | | | | [facility] | | | | | | [facility] | | + + + + + + | WBC UA | 0-2 | <=5 /HPF | [facility] | | | | | | [facility] | | | | | | [facility] | | + + + + + + | RBC UA | 0-2 | <=5 /HPF | [place] | | | | | | [facility] | | | | | | [facility] | | + + + + + + | SQUAMOUS | Few (A) | None Seen /LPF | [place] | | | [facility] | | | [facility] | | | [facility] | | | [facility] | | | | | | [facility] | | + + + + + + | TRANSITIONA | Few (A) | None Seen /HPF | [place] | | | L | | | [facility] | | | [facility] | | [facility] | | | UA | | | LAB[facility] | | + + + + + + | BACTERIA UA | Few (A) | None Seen /HPF | [facility] | | | | | | [facility] | | | | | | [facility] | | + + + + + + | MUCUS UA | Many (A) | None seen /LPF | [place] | | | | | | [facility] | | | | | | [facility] | | + + + + + + | HYALINE | Few (A) | None Seen /LPF | [place] | | | [facility] | | | [facility] | | | | | | [facility] | | + + + + + + | GRANULAR | Few (A) | None Seen /LPF | [place] | | | [facility] | | | [facility] | | | | | | [facility] | | + + + + + + | URINE | Urine Culture Not | | [facility] | | | COMMENT | Indicated | | [facility] | | | | | | [facility] | | + + + + + + + + | Specimen | + + | Urine - Urine | | specimen obtained by | | clean catch | | procedure (specimen) | + + + + + + + | Performing | Address | City/State/Zipcode | Phone Number | | Organization | | | | + + + + + | [facility] | [address] | [place] [address] | [phone] | | [facility] | | | | + + + + + Drugs of Abuse, Screen, Urine (01/12/2019 11:43 AM PDT) + + + + + + | Component | Value | Ref Range | Performed | Pathologist | | | | | At | Signature | + + + + + + | Cannabinoid | Negative | Negative | [facility] | | | s Screen, | | | [facility] | | | Urine | | | [facility] | | | | | | [facility]AT[facility] | | + + + + + + | Cocaine | Negative | Negative | [place] | | | Screen, | | | [facility] | | | Urine | | | [facility] | | | | | | [facility]AT[facility] | | + + + + + + | Phencyclidi | Negative | Negative | [place] | | | ne Screen, | | | [facility] | | | Urine | | | [facility] | | | | | | [facility] | | + + + + + + | Methampheta | Positive (A) | Negative | [place] | | | mine | | | [facility] | | | Screen, | | | [facility] | | | Urine | | | LABORATORY | | + + + + + + | Opiates | Negative | Negative | [place] | | | Screen, | | | [facility] | | | Urine | | | [facility] | | | | | | [facility]AT[facility] | | + + + + + + | Amphetamine | Positive (A) | Negative | [facility] | | | Screen, | | | [facility] | | | Urine | | | [facility] | | | | | | LAB[facility]AT[facility] | | + + + + + + | Benzodiazep | Negative | Negative | [facility] | | | codie | | | [facility] | | | Screen, | | | [facility] | | | Urine | | | LABORATORY | | + + + + + + | Tricyclic | Negative | Negative | [facility] | | | Antidepress | | | [facility] | | | ants | | | [facility]OSPITAL | | | Screen, | | | LABORATORY | | | Urine | | | | | + + + + + + | Methadone | Negative | Negative | [facility] | | | Screen, | | | [facility] | | | Urine | | | [facility] | | | | | | LAB[facility]AT[facility] | | + + + + + + | Barbiturate | Negative | Negative | [facility] | | | s Screen, | | | [facility] | | | Urine | | | [facility] | | | | | | [facility] | | + + + + + + | Oxycodone | Negative | Negative | [facility] | | | Screen, | | | [facility] | | | Urine | | | [facility] | | | | | | [facility] | | + + + + + + | Propoxyphen | Negative | Negative | [facility] | | | e Screen, | | | [facility] | | | Urine | | | [facility] | | | | | | [facility]AT[facility] | | + + + + + + | Buprenorphi | Negative | Negative | [facility] | | | ne Screen, | | | [facility] | | | Urine | | | [facility] | | | | | | LAB[facility]ATORY | | + + + + + + + + | Specimen | + + | Urine - Urine | | specimen obtained by | | clean catch | | procedure (specimen) | + + + + + | Narrative | Performed At | + + + | Qualitative drug screen intended for emergency medical use only. Not | [facility] | | intended for legal purposes. Chain of Custody not maintained. | HOSPITAL | | Confirmation of Positive results must be ordered by the attending | LABORATORY | | physician. Xxpb-[id number] drugs may cross react with some methods. | | | Call the laboratory if further information is needed. | | | AMPHETAMINE 500 ng/mL BARBITURATES | | | 200 ng/mL BENZODIAZEPINES | | | 150 ng/mL BUPRENORPHINE 10 ng/mL COCAINE | | | 150 ng/mL METHAMPHETAMINES | | | 500 ng/mL METHADONE | | | 200 ng/mL OPIATES 100 ng/mL | | | OXYCODONE 100 ng/mL PHENCYCLIDINE | | | 25 ng/mL PROPOXYPHENE | | | 300 ng/mL CANNABINOIDS 50 ng/mL | | | TRICYCLIC ANTIDEPRES 300 ng/mL | | + + + + + + + + | Performing | Address | City/State/Zipcode | Phone Number | | Organization | | | | + + + + + | [facility] | [address] | [place] [address] | [phone] | | [facility] | | | | + + + + + T4, Free (01/12/2019 11:38 AM PDT) + +---------+ + + + | Component | Value | Ref Range | Performed | Pathologist | | | | | At | Signature | + +---------+ + + + | FT4 | 1.7 (H) | 0.8 - 1.5 ng/dL | [facility] | | | | | | [facility] | [facility] | | | | | | [facility] | | + +---------+ + + + + + | Specimen | + + | Blood | + + + + + + + | Performing | Address | City/State/Zipcode | Phone Number | | Organization | | | | + + + + + | [facility] | [address] | [place] [address] | [phone] | | [facility] | | | | + + + + + TSH (01/12/2019 11:38 AM PDT) + + + + + + | Component | Value | Ref Range | Performed | Pathologist | | | | | At | Signature | + + + + + + | TSH | 0.01 (L)Comment: | 0.36 - 3.74 | [facility] | | | | Verified by repeat | uIU/mL | [facility] | | | | analysis | | [facility] | | | | | | [facility]AT[facility] | | + + + + + + + + | Specimen | + + | Blood | + + + + + + + | Performing | Address | City/State/Zipcode | Phone Number | | Organization | | | | + + + + + | [facility] | [address] | [place] [address] | [phone] | | [facility] | | | | + + + + + Comprehensive Metabolic Panel (01/12/2019 11:38 AM PDT) + + + + + + | Component | Value | Ref Range | Performed | Pathologist | | | | | At | Signature | + + + + + + | Na | 142 | 132 - 143 | [facility] | | | | | mmol/L | [facility] | | | | | [facility] | | | | | | [facility] | | + + + + + + | K | 3.7 | 3.3 - 4.9 | [facility] | | | | | mmol/L | [facility] | | | | | | [facility] | | | | | | [facility] | | + + + + + + | Cl | 106 | 95 - 108 mmol/L | [facility] | | | | | | [facility] | | | | | [facility] | | | | | | [facility] | | + + + + + + | CO2 | 25 | 23 - 34 mmol/L | [facility] | | | | | | [facility] | | | | [facility] | | | | | | [facility] | | + + + + + + | Anion Gap | 11 | 7 - 16 mmol/L | [facility] | | | | | | [facility] | [facility] | | | | | | [facility] | | + + + + + + | Glucose | 266 (H) | 70 - 110 mg/dL | [facility] | | | | | | [facility] | | [facility] | [facility] | | | | | | [facility] | | + + + + + + | BUN | 15 | 5 - 26 mg/dL | [facility] | | | | | | [facility] | | | | [facility] | | | | | | [facility] | | + + + + + + | Creatinine | 1.22 | 0.70 - 1.40 | [facility] | | | | | mg/dL | [facility] | [facility] | | | [facility] | | | | | | [facility] | | + + + + + + | eGFR if not | 57 (L)Comment: | >=60 | [facility] | | | | GLOMERULAR FILTRATION | mL/min/1.73m2 | [facility] | | | [facility] | RATE,ESTIMATED | | [facility]OS[facility]ITAL | | | | mL/min/1.22x0Bgyw than | | LABORATORY | | | | 60 Chronic kidney | | | | | | disease,if found over a | | | | | | 3-month period.Less than | | | | | | 15 Kidney failureFor | | | | | | | | | | | | Americans,multiply the | | | | | | calculated GFR by 1.21. | | | | | | | | | | + + + + + + | Calcium | 9.4 | 8.3 - 10.0 | [facility] | | | | | mg/dL | [facility] | | [facility] | [facility] | | | | | | [facility] | | + + + + + + | Albumin | 3.6 | 3.0 - 4.5 g/dL | [facility] | | | | | | [facility] | | | | [facility] | | | | | | [facility] | | + + + + + + | Bilirubin | 0.8 | 0.0 - 1.2 mg/dL | [facility] | | | Total | | | [facility] | | | | | | [facility] | | | | | | [facility] | | + + + + + + | Total | 7.4 | 6.6 - 8.5 g/dL | [facility] | | | Protein | | | [facility] | | | | | | [facility] | | | | | | [facility] | | + + + + + + | AST | 28 | 0 - 38 U/L | [facility] | | | | | | [facility] | | | | [facility] | | | | | | [facility] | | + + + + + + | ALT | 42 | 16 - 63 U/L | [facility] | | | | | | [facility] | | [facility] | | | | | | [facility] | | + + + + + + | Alkaline | 84 | 46 - 116 U/L | [facility] | | | Phosphatase | | | [facility] | | | | | [facility] | | | | | | [facility] | | + + + + + + | Globulin | 3.8 | 2.4 - 4.5 g/dL | [facility] | | | | | | [facility] | | | | [facility] | | | | | | [facility] | | + + + + + + | Albumin/Lizbeth | 0.9 | 0.8 - 2.0 | [facility] | | | bulin Ratio | | | [facility] | | | | [facility] | | | | | | [facility] | | + + + + + + | BUN/Creatin | 12.3 | 7.0 - 24.0 | [facility] | | | ine Ratio | | | [facility] | | | | | [facility] | | | | | | [facility] | | + + + + + + + + | Specimen | + + | Blood | + + + + + + + | Performing | Address | City/State/Zipcode | Phone Number | | Organization | | | | + + + + + | [facility] | [address] | [place] [address] | [phone] | | [facility] | | | | + + + + + CBC with Differential (01/12/2019 11:38 AM PDT) + + + + + + | Component | Value | Ref Range | Performed | Pathologist | | | | | At | Signature | + + + + + + | WBC | 8.7 | 4.6 - 10.5 K/uL | [facility] | | | | | | [facility] | | | | | | [facility] | | + + + + + + | RBC | 4.64 | 4.36 - 5.83 | [facility] | | | | | M/uL | [facility] | [facility] | | | | | | [facility] | | + + + + + + | Hemoglobin | 13.4 | 13.1 - 17.4 | [facility] | | | | | g/dL | [facility] | [facility] | | | | | | [facility] | | + + + + + + | Hematocrit | 40.1 | 39.0 - 51.9 % | [facility] | | | | | | [facility] | | | | | | [facility] | | + + + + + + | MCV | 86.4 | 82.0 - 96.0 fL | [facility] | | | | | | [facility] | | | | | | [facility] | | + + + + + + | MCH | 28.9 | 27.7 - 32.3 pg | [facility] | | | | | | [facility] | | [facility] | | | | | | [facility] | | + + + + + + | MCHC | 33.4 | 32.0 - 36.9 | [facility] | | | | | g/dL | [facility] | [facility] | | | | | | [facility] | | + + + + + + | RDW-CV | 15.3 | 0.0 - 17.0 % | [facility] | | | | | | [facility] | [facility] | | | | | | [facility] | | + + + + + + | Platelet | 162 | 150 - 450 K/uL | [facility] | | | Count | | | [facility] | | | | | [facility] | | | | | | [facility] | | + + + + + + | MPV | 10.4 | 9.4 - 12.4 fL | [facility] | | | | | | [facility] | | | | | | [facility] | | + + + + + + | % | 58.5 | 42.0 - 76.0 % | [facility] | | | Neutrophils | | | [facility] | [facility] | [facility] | | | | | | [facility] | | + + + + + + | % | 25.9 | 20.0 - 40.0 % | [facility] | | | Lymphocytes | | | [facility] | | | | | | [facility]ATORY | | + + + + + + | % Monocytes | 12.6 | 3.0 - 13.0 % | [facility] | | | | | [facility] | | | | | | [facility] | | + + + + + + | % | 1.7 | 0.0 - 7.0 % | [facility] | | | Eosinophils | | | [facility] | | | | | | [facility]ATORY | | + + + + + + | % Basophils | 0.5 | 0.0 - 2.0 % | [facility] | | | | | | [facility] | | + + + + + + | % Immature | 0.8 (H) | 0.0 - 0.5 % | [facility] | | | Granulocyte | | | [facility] | | | [facility] | | | | | | LABORATORY | | + + + + + + | Absolute | 5.10 | 2.80 - 7.70 | [facility] | | | Neutrophils | | K/uL | [facility] | | | | | | [facility] | | + + + + + + | Absolute | 2.26 | 1.20 - 3.30 | [facility] | | | Lymphocytes | | K/uL | [facility] | | | | | | [facility] | | + + + + + + | Absolute | 1.10 (H) | 0.00 - 0.80 | [facility] | | | Monocytes | | K/uL | [facility] | | | | | | [facility] | | + + + + + + | Absolute | 0.15 | 0.00 - 0.70 | [facility] | | | Eosinophils | | K/uL | [facility] | | | | | | [facility] | | + + + + + + | Absolute | 0.04 | 0.00 - 0.20 | [facility] | | | Basophils | | K/uL | [facility] | | | | | | [facility] | | + + + + + + | Absolute | 0.07 | 0.00 - 0.15 | [facility] | | | Immature | | K/uL | [facility] | | | Granulocyte | | | [facility] | | | s | | | LABORATORY | | + + + + + + | % nRBC | 0 | <=0 per 100 | [facility] | | | | | WBCs | [facility] | | | | | | [facility]ORY | | + + + + + + | Absolute | 0.00 | 0.00 - 0.01 | [facility] | | | nRBC | | K/uL | [facility] | | | | | | [facility] | | + + + + + + + + | Specimen | + + | Blood | + + + + + + + | Performing | Address | City/State/Zipcode | Phone Number | | Organization | | | | + + + + + | [facility] | [address] | [place] [address] | [phone] | | [facility] | | | | + + + + + documented in this encounter Visit Diagnoses + + | Diagnosis | + + | Acute medication-induced akathisia - Primary | + + | Dehydration | + + | Subclinical hyperthyroidism Thyrotoxicosis without mention of goiter or other cause, | | without mention of thyrotoxic crisis or storm | + + | Acute renal insufficiency Unspecified disorder of kidney and ureter | + + documented in this encounter Administered Medications + +--------+ +-------+------+------+ | Medication Order | MAR | Action | Dose | Rate | Site | | | Action | Date | | | | + +--------+ +-------+------+------+ | diphenhydrAMINE (BENADRYL) | Given | 01/13/20 | 50 mg | | | | injection 50 mg 50 mg, | | 19 11:15 | | | | | Intravenous, EVERY 6 HOURS PRN, | | AM PDT | | | | | Itching, Starting 01/12/19 at | | | | | | | 1108 | | | | | | + +--------+ +-------+------+------+ +---+---+ | | | +---+---+ documented in this encounter Additional Health Concerns + + + + | Infection | Noted Time | Resolved Time | + + + + | Methicillin-resistant Staphylococcus aureus | 07/20/2018 4:00 PM | | | | PDT | | + + + + documented as of this encounter
--- OUTSIDE RECORDS SUMMARY | ~2019-02-17 | XMS | Encounter Summary ---
Demographics + + + | Address | [address] | | | [place] [address] | + + + | Home Phone | | + + + | Preferred Language | Unknown | + + + | Marital Status | | + + + | Pentecostalism Affiliation | 1025 | + + + | Race | Unknown | + + + | Ethnic Group | Unknown | + + + Author + + + | Author | [facility] | | | and [place] | + + + | Organization | [facility] | | [...] Team Providers + +------+ + | Care Title Inspector Name | Role | Phone | + +------+ + | Ryan Gutiérrez MD | PCP | | + +------+ + Encounter Details +--------+ + + + + | Date | Type | Department | Care Team | Description | +--------+ + + + + | 05/21/ | Hospital | [facility] | Scott De Oliveira | | | 2017 | Encounter | [facility] MED SURG | DO [address] | | | | | [address] [place] | [address] | | | | | [place], [place] | [place], [place] | | | | | [address] | [address] | | | | | [phone] | [phone] | | | | | | | | +--------+ + + + [...] documented as of this encounter Discharge Summaries Lisa Taylor MD - 05/21/2016 6:19 AM PST DISCHARGE SUMMARY DATE OF ADMISSION 05/21/2016. DATE OF DISCHARGE 05/26/2016. ADMITTING PHYSICIAN Scott De Oliveira DO. HISTORY OF PRESENT ILLNESS This is a 75-year-old male admitted for elective component separation incisional hernia rep [facility]. He underwent the procedure on the day of admission, which was fairly extensive, but the postoperative course was essentially unremarkable except for pain control issues as well as a drop in hematocrit as low as 19. Because the patient was a Je[employer] v[employer]'s Witness, he did not consent to any blood products and remained essentially asymptomati c except for being mildly fatigued when he walked. Bowel function was recovered by postoperative day #3, at which point he was advanced on a diet. He is dischar [facility] home on postoperative day #5 tolerating a regular diet, on oral pain medication. He is given an OXYCODONE script as well as an IRON SULFATE script. He is also told to take oral MULTIVITAMIN with FOLATE. Plan is to follow up with Dr. De Oliveira in 2-3 w eeks. Drains will be left in until he sees Dr. De Oliveira in the office. Instruction is given on the drain function and recording the output. He is not to engage in any heavy lifting over 20 pounds for several weeks. DISCHARGE DIAGNOSES 1. Incisional hernia. 2. History of type 2 diabetes. 3. History of hypercholesterolemia. 4. History of hypertension. 5. Postoperative anemia. [facility] Signed and Approved by: LISA TAYLOR MD 05/28/2016 08:44:00 documented in this encounter Medications at Time of [...] [place] | | | | | | [address] | | | | | | [phone] | | | | | | | | +--------+---------+ + + + | 02/26/ | Office | Urology | Lillie Fowler | | | 2018 | Visit | | LILLIE Lopez [address] | | | | | | [address] | | | | | | [place] | | | | | | [address] | | | | | | [phone] | | | | | | | | +--------+---------+ + + + | 03/16/ | Office | Neurology | Theresa, | | | 2018 | Visit | | SH[address]DA [address] | | | | | | [facility] [address] [place], | | | | | | [place] [address] | | | | | | [phone] | | | | | | | | +--------+---------+ + + + | 04/12/ | Office | Primary Care | Massimo Ramos | | | 2019 | Visit | | MD Fer [address] | | | | | | [address] [place] | | | | | | [address] | | | | | | | | +--------+---------+ + + + | 10/03/ | Office | Neurology | Fabián Carias MD | | | 2019 | Visit | | [address] | | | | | | [place] | | | | | | [address] | | | | | | | [...] | | | care | | | [employer] | | | | | | | [...] | | | care | | | [employer] | | | | | | | [...] | | | care | | | [employer] | | | | | | | [...] | | | care | | | [employer] | | | | | | | [...] + | POC GLUCOSE, | Routin | 05/26/2016 | | Results for this | | [facility] | e | 11:37 AM | | procedure are in the | | | | PST | | results section. | + +--------+ + + + | POC GLUCOSE, | Routin | 05/26/2016 | | Results for this | | [facility] | e | 7:32 AM | | procedure are in the | | | | PST | | results section. | + +--------+ + + + | POC GLUCOSE, | Routin | 05/25/2016 | | Results for this | | [facility] | e | 8:37 PM | | procedure are in the | | | | PST | | results section. | + +--------+ + + + | POC GLUCOSE, | Routin | 05/25/2016 | | Results for this | | [facility] | e | 4:06 PM | | procedure are in the | | | | PST | | results section. | + +--------+ + + + | POC GLUCOSE, | Routin | 05/25/2016 | | Results for this | | [facility] | e | 11:46 AM | | procedure are in the | | | | PST | | results section. | + +--------+ + + + | POC GLUCOSE, | Routin | 05/25/2016 | | Results for this | | [facility] | e | 7:45 AM | | procedure are in the | | | | PST | | results section. | + +--------+ + + + | POC GLUCOSE, | Routin | 05/25/2016 | | Results for this | | [facility] | e | 7:21 AM | | procedure are in the | | | | PST | | results section. | + +--------+ + + + | POC GLUCOSE, | Routin | 05/24/2016 | | Results for this | | [facility] | e | 10:39 PM | | procedure are in the | | | | PST | | results section. | + +--------+ + + + | POC GLUCOSE, | Routin | 05/24/2016 | | Results for this | | [facility] | e | 8:45 PM | | procedure are in the | | | | PST | | results section. | + +--------+ + + + | POC GLUCOSE, | Routin | 05/24/2016 | | Results for this | | [facility] | e | 4:17 PM | | procedure are in the | | | | PST | | results section. | + +--------+ + + + | POC GLUCOSE, | Routin | 05/24/2016 | | Results for this | | [facility] | e | 11:29 AM | | procedure are in the | | | | PST | | results section. | + +--------+ + + + | POC GLUCOSE, | Routin | 05/24/2016 | | Results for this | | [facility] | e | 7:42 AM | | procedure are in the | | | | PST | | results section. | + +--------+ + + + | POC GLUCOSE, | Routin | 05/23/2016 | | Results for this | | [facility] | e | 8:31 PM | | procedure are in the | | | | PST | | results section. | + +--------+ + + + | POC GLUCOSE, | Routin | 05/23/2016 | | Results for this | | [facility] | e | 4:26 PM | | procedure are in the | | | | PST | | results section. | + +--------+ + + + | POC GLUCOSE, | Routin | 05/23/2016 | | Results for this | | [facility] | e | 11:42 AM | | procedure are in the | | | | PST | | results section. | + +--------+ + + + | POC GLUCOSE, | Routin | 05/23/2016 | | Results for this | | [facility] | e | 7:35 AM | | procedure are in the | | | | PST | | results section. | + +--------+ + + + | POC GLUCOSE, | Routin | 05/22/2016 | | Results for this | | [facility] | e | 8:33 PM | | procedure are in the | | | | PST | | results section. | + +--------+ + + + | POC GLUCOSE, | Routin | 05/22/2016 | | Results for this | | [facility]POINT | e | 4:36 PM | | procedure are in the | | | | PST | | results section. | + +--------+ + + + | CREATININE, URINE | Routin | 05/22/2016 | | Results for this | | | e | 2:20 PM | | procedure are in the | | | | PST | | results section. | + +--------+ + + + | SODIUM, URINE, | Routin | 05/22/2016 | | Results for this | | RANDOM | e | 2:20 PM | | procedure are in the | | | | PST | | results section. | + +--------+ + + + | MICROALBUMIN, URINE, | Routin | 05/22/2016 | | Results for this | | RANDOM | e | 2:15 PM | | procedure are in the | | | | PST | | results section. | + +--------+ + + + | URINALYSIS WITH | Routin | 05/22/2016 | | Results for this | | MICROSCOPIC WITH | e | 2:14 PM | | procedure are in the | | CULTURE IF INDICATED | | PST | | results section. | + +--------+ + + + | TSH, REFLEX FREE T4 | Routin | 05/22/2016 | | Results for this | | | e | 11:57 AM | | procedure are in the | | | | PST | | results section. | + +--------+ + + + | T4, FREE | Routin | 05/22/2016 | | Results for this | | | e | 11:57 AM | | procedure are in the | | | | PST | | results section. | + +--------+ + + + | POC GLUCOSE, | Routin | 05/22/2016 | | Results for this | | [facility] | e | 11:56 AM | | procedure are in the | | | | PST | | results section. | + +--------+ + + + | BASIC METABOLIC | STAT | 05/22/2016 | | Results for this | | PANEL | | 10:44 AM | | procedure are in the | | | | PST | | results section. | + +--------+ + + + | HEMOGLOBIN AND | STAT | 05/22/2016 | | Results for this | | HEMATOCRIT | | 10:43 AM | | procedure are in the | | | | PST | | results section. | + +--------+ + + + | POC GLUCOSE, | Routin | 05/22/2016 | | Results for this | | [facility]POINT | e | 10:00 AM | | procedure are in the | | | | PST | | results section. | + +--------+ + + + | POC GLUCOSE, | Routin | 05/22/2016 | | Results for this | | R[facility]POINT | e | 7:38 AM | | procedure are in the | | | | PST | | results section. | + +--------+ + + + | POC GLUCOSE, | Routin | 05/21/2016 | | Results for this | | [facility]POINT | e | 8:40 PM | | procedure are in the | | | | PST | | results section. | + +--------+ + + + | POC GLUCOSE, | Routin | 05/21/2016 | | Results for this | | [facility]POINT | e | 4:43 PM | | procedure are in the | | | | PST | | results section. | + +--------+ + + + | POC GLUCOSE, | Routin | 05/21/2016 | | Results for this | | [facility] | e | 12:02 PM | | procedure are in the | | | | PST | | results section. | + +--------+ + + + | CBC W/AUTO | Routin | 05/21/2016 | | Results for this | | DIFFERENTIAL | e | 7:36 AM | | procedure are in the | | | | PST | | results section. | + +--------+ + + + | BASIC METABOLIC | Routin | 05/21/2016 | | Results for this | | PANEL | e | 7:36 AM | | procedure are in the | | | | PST | | results section. | + +--------+ + + + | POC GLUCOSE, | Routin | 05/21/2016 | | Results for this | | [facility] | e | 7:21 AM | | procedure are in the | | | | PST | | results section. | + +--------+ + + + | HEMOGLOBIN AND | STAT | 05/21/2016 | | Results for this | | HEMATOCRIT | | 7:08 AM | | procedure are in the | | | | PST | | results section. | + +--------+ + + + | US RETROPERITONEAL | Routin | 05/21/2016 | | Results for this | | LIMITED | e | 6:19 AM | | procedure are in the | | | | PST | | results section. | + +--------+ + + + | HEMOGRAM WITH | Routin | 05/21/2016 | | Results for this | | PLATELETS | e | 5:00 AM | | procedure are in the | | | | PST | | results section. | + +--------+ + + + | BASIC METABOLIC | Routin | 05/21/2016 | | Results for this | | PANEL | e | 5:00 AM | | procedure are in the | | | | PST | | results section. | + +--------+ + + + documented in this encounter Results POC Glucose, [facility] (05/26/2016 11:37 AM PST) + +-------+ + + + | Component | Value | Ref Range | Performed | Pathologist | | | | | At | Signature | + +-------+ + + + | Glucose, | 117 | 70 - 110 mg/dL | EXTERNAL [...] + +---------+ + + POC Glucose, [facility] (05/26/2016 7:32 AM PST) + +-------+ + + + | Component | Value | Ref Range | Performed | Pathologist | | | | | At | Signature | + +-------+ + + + | Glucose, | 115 | 70 - 110 mg/dL | EXTERNAL [...] + +---------+ + + POC Glucose, [facility] (05/25/2016 8:37 PM PST) + +-------+ + + + | Component | Value | Ref Range | Performed | Pathologist | | | | | At | Signature | + +-------+ + + + | Glucose, | 107 | 70 - 110 mg/dL | EXTERNAL [...] + +---------+ + + POC Glucose, [facility] (05/25/2016 4:06 PM PST) + +-------+ + + + | Component | Value | Ref Range | Performed | Pathologist | | | | | At | Signature | + +-------+ + + + | Glucose, | 115 | 70 - 110 mg/dL | EXTERNAL [...] + +---------+ + + POC Glucose, [facility] (05/25/2016 11:46 AM PST) + +-------+ + + + [...] + +---------+ + + POC Glucose, [facility] (05/25/2016 7:45 AM PST) + +-------+ + + + [...] + +---------+ + + POC Glucose, [facility] (05/25/2016 7:21 AM PST) + +-------+ + + + [...] + +---------+ + + POC Glucose, [facility] (05/24/2016 10:39 PM PST) + +-------+ + + + | Component | Value | Ref Range | Performed | Pathologist | | | | | At | Signature | + +-------+ + + + | Glucose, | 105 | 70 - 110 mg/dL | EXTERNAL [...] + +---------+ + + POC Glucose, [facility] (05/24/2016 8:45 PM PST) + +-------+ + + + | Component | Value | Ref Range | Performed | Pathologist | | | | | At | Signature | + +-------+ + + + | Glucose, | 113 | 70 - 110 mg/dL | EXTERNAL [...] + +---------+ + + POC Glucose, [facility] (05/24/2016 4:17 PM PST) + +-------+ + + + | Component | Value | Ref Range | Performed | Pathologist | | | | | At | Signature | + +-------+ + + + | Glucose, | 129 | 70 - 110 mg/dL | EXTERNAL [...] + +---------+ + + POC Glucose, [facility] (05/24/2016 11:29 AM PST) + +-------+ + + + | Component | Value | Ref Range | Performed | Pathologist | | | | | At | Signature | + +-------+ + + + | Glucose, | 122 | 70 - 110 mg/dL | EXTERNAL [...] + +---------+ + + POC Glucose, [facility] (05/24/2016 7:42 AM PST) + +-------+ + + + | Component | Value | Ref Range | Performed | Pathologist | | | | | At | Signature | + +-------+ + + + | Glucose, | 106 | 70 - 110 mg/dL | EXTERNAL [...] + +---------+ + + POC Glucose, [facility] (05/23/2016 8:31 PM PST) + +-------+ + + + | Component | Value | Ref Range | Performed | Pathologist | | | | | At | Signature | + +-------+ + + + | Glucose, | 137 | 70 - 110 mg/dL | EXTERNAL [...] + +---------+ + + POC Glucose, [facility] (05/23/2016 4:26 PM PST) + +-------+ + + + [...] + +---------+ + + POC Glucose, [facility] (05/23/2016 11:42 AM PST) + +-------+ + + + [...] + +---------+ + + POC Glucose, [facility] (05/23/2016 7:35 AM PST) + +-------+ + + + | Component | Value | Ref Range | Performed | Pathologist | | | | | At | Signature | + +-------+ + + + | Glucose, | 114 | 70 - 110 mg/dL | EXTERNAL [...] + +---------+ + + POC Glucose, [facility] (05/22/2016 8:33 PM PST) + +-------+ + + + | Component | Value | Ref Range | Performed | Pathologist | | | | | At | Signature | + +-------+ + + + | Glucose, | 112 | 70 - 110 mg/dL | EXTERNAL [...] + +---------+ + + POC Glucose, [facility] (05/22/2016 4:36 PM PST) + +-------+ + + + | Component | Value | Ref Range | Performed | Pathologist | | | | | At | Signature | + +-------+ + + + | Glucose, | 124 | 70 - 110 mg/dL | EXTERNAL [...] | | | + +---------+ + + Creatinine, Urine (05/22/2016 2:20 PM PST) + +-------+ + + + | Component | Value | Ref Range | Performed | Pathologist | | | | | At | Signature | + +-------+ + + + | Creatinine, | 211.3 | 20.0 - 370.0 | EXTERNAL | | | Urine | | mg/dL | LAB | | + +-------+ + + + + + | Specimen | + + | | + + + +---------+ + + | Performing | Address | City/State/Zipcode | Phone Number | | Organization | | | | + +---------+ + + | EXTERNAL LAB | | | | + +---------+ + + Sodium, Urine, Random (05/22/2016 2:20 PM PST) + +-------+ + + + | Component | Value | Ref Range | Performed | Pathologist | | | | | At | Signature | + +-------+ + + + | Sodium, | 23 | mmol/L | EXTERNAL | | | Urine | | | LAB | | + +-------+ + + + + + | Specimen | + + | | + + + +---------+ + + | Performing | Address | City/State/Zipcode | Phone Number | | Organization | | | | + +---------+ + + | EXTERNAL LAB | | | | + +---------+ + + Microalbumin, Urine, Random (05/22/2016 2:15 PM PST) + +-------+ + + + | Component | Value | Ref Range | Performed | Pathologist | | | | | At | Signature | + +-------+ + + + | Creatinine, | 211.2 | 20.0 - 370.0 | EXTERNAL | | | Urine | | mg/dL | LAB | | + +-------+ + + + | Microalbumi | 34.9 | <=30.0 mg/L | EXTERNAL | | | n Excretion | | | LAB | | | Rate | | | | | + +-------+ + + + | Microalb | 16.5 | <=17.0 mg/g | EXTERNAL | | | Creat Ratio | | | LAB | | + +-------+ + + + + + | Specimen | + + | | + + + +---------+ + + | Performing | Address | City/State/Zipcode | Phone Number | | Organization | | | | + +---------+ + + | EXTERNAL LAB | | | | + +---------+ + + Urinalysis with Microscopic with Culture if Indicated (05/22/2016 2:14 PM PST) + + + + + + | Component | Value | Ref Range | Performed | Pathologist | | | | | At | Signature | + + + + + + | Source | Tong CATH | | EXTERNAL | | | | | | LAB | | + + + + + + | Clarity | SLIGHTLY CLOUDY | CLEAR | EXTERNAL | | | | | | LAB | | + + + + + + | Color | YELLOW | | EXTERNAL | | | | | | LAB | | + + + + + + | Specific | 1.025 | 1.005 - 1.030 | EXTERNAL | | | [place], | | | LAB | | | Urine | | | | | + + + + + + | pH, Urine | 5 | 5.0 - 7.0 pH | EXTERNAL | | | | | | LAB | | + + + + + + | Leukocyte | 500 | NEGATIVE /uL | EXTERNAL | | | Esterase, | | | LAB | | | Urine | | | | | + + + + + + | Nitrite, | NEGATIVE | NEGATIVE | EXTERNAL | | | Urine | | | LAB | | + + + + + + | Protein, | 15 | NEGATIVE mg/dL | EXTERNAL | | | Urine | | | LAB | | + + + + + + | Glucose, | NORMAL | NORMAL mg/dL | EXTERNAL | | | Urine | | | LAB | | + + + + + + | Reducing | NOT REQUIRED | | EXTERNAL | | | Substance, | [...] + + + + | Blood, | 150 | NEGATIVE /uL | EXTERNAL | | | Urine | | | LAB | | + + + + + + | WBC UA | 10-20 | </= 5 /HPF | EXTERNAL | | | | | | LAB | | + + + + + + | RBC COUNT | 0-2 | </= 5 PER HPF | EXTERNAL | | | | | | LAB | | + + + + + + | Bacteria, | MANY | NONE SEEN /HPF | EXTERNAL | | | UA | | | LAB | | + + + + + + | Culture | YES | | EXTERNAL | | | Indicated | | | LAB | | + + + + + + | SQUAMOUS | MODERATE | /LPF | EXTERNAL | | | EPITHELIAL | | | LAB | | | UA | | | | | + + + + + + | MUCUS UA | MODERATE | NONE SEEN /HPF | EXTERNAL | | | | | | LAB | | + + + + + + | CALCIUM | MODERATE | NONE SEEN /HPF | EXTERNAL | | | OXALATE | | | LAB | | | CRYSTALS UA | | | | | + + + + + + | HYALINE | MODERATE | NONE SEEN /LPF | EXTERNAL | | | CASTS UA | | | LAB | | + + + + + + + + | Specimen | + + | | + + + +---------+ + + | Performing | Address | City/State/Zipcode | Phone Number | | Organization | | | | + +---------+ + + | EXTERNAL LAB | | | | + +---------+ + + T4, Free (05/22/2016 11:57 AM PST) + +-------+ + + + | Component | Value | Ref Range | Performed | Pathologist | | | | | At | Signature | + +-------+ + + + | FT4 | 1 | 0.76 - 1.46 | EXTERNAL | | | | | ng/dL | LAB | | + +-------+ + + + + + | Specimen | + + | | + + + +---------+ + + | Performing | Address | City/State/Zipcode | Phone Number | | Organization | | | | + +---------+ + + | EXTERNAL LAB | | | | + +---------+ + + TSH, Reflex Free T4 (05/22/2016 11:57 AM PST) + +-------+ + + + | Component | Value | Ref Range | Performed | Pathologist | | | | | At | Signature | + +-------+ + + + | TSH | 5.56 | 0.35 - 5.50 | EXTERNAL | | | | | uIU/mL | LAB | | + +-------+ + + + + + | Specimen | + + | | + + + +---------+ + + | Performing | Address | City/State/Zipcode | Phone Number | | Organization | | | | + +---------+ + + | EXTERNAL LAB | | | | + +---------+ + + POC Glucose, [facility] (05/22/2016 11:56 AM PST) + +-------+ + + + | Component | Value | Ref Range | Performed | Pathologist | | | | | At | Signature | + +-------+ + + + | Glucose, | 145 | 70 - 110 mg/dL | EXTERNAL [...] | | | + +---------+ + + Basic Metabolic Panel (05/22/2016 10:44 AM PST) + +-------+ + + + | Component | Value | Ref Range | Performed | Pathologist | | | | | At | Signature | + +-------+ + + + | Sodium | 140 | 132 - 143 | EXTERNAL | | | | | mmol/L | LAB | | + +-------+ + + + | Potassium | 4.9 | 3.3 - 4.9 | EXTERNAL | | | | | mmol/L | LAB | | + +-------+ + + + | Cl | 105 | 95 - 108 mmol/L | EXTERNAL | | | | | | LAB | | + +-------+ + + + | CO2 | 26 | 23 - 34 mmol/L | EXTERNAL | | | | | | LAB | | + +-------+ + + + | Anion Gap | 9 | 7 - 16 | EXTERNAL | | | | | | LAB | | + +-------+ + + + | Calcium | 7.3 | 8.3 - 10.0 | EXTERNAL | | | | | mg/dL | LAB | | + +-------+ + + + | Glucose | 165 | 70 - 110 mg/dL | EXTERNAL | | | | | | LAB | | + +-------+ + + + | BUN, Bld | 28 | 5 - 26 mg/dL | EXTERNAL | | | | | | LAB | | + +-------+ + + + | Creatinine | 2.13 | 0.70 - 1.40 | EXTERNAL | | | | | mg/dL | LAB | | + +-------+ + + + | BUN/Creatin | 13.1 | 7.0 - 24.0 | EXTERNAL | | | ine Ratio | | RATIO | LAB | | + +-------+ + + + | GFR | 30 | >=60 | EXTERNAL | | | [...] | | | + +---------+ + + Hemoglobin and Hematocrit (05/22/2016 10:43 AM PST) + +-------+ + + + | Component | Value | Ref Range | Performed | Pathologist | | | | | At | Signature | + +-------+ + + + | HGB, | 9.8 | 13.1 - 17.4 | EXTERNAL | | | External | | g/dL | LAB | | + +-------+ + + + | HCT, | 30 | 39.0 - 51.9 % | EXTERNAL | | | External | | | LAB | | + +-------+ + + + | MCHC | 32.7 | 32.0 - 36.9 | EXTERNAL | | | | | g/dL | LAB | | + +-------+ + + + + + | Specimen | + + | | + + + +---------+ + + | Performing | Address | City/State/Zipcode | Phone Number | | Organization | | | | + +---------+ + + | EXTERNAL LAB | | | | + +---------+ + + POC Glucose, [facility] (05/22/2016 10:00 AM PST) + +-------+ + + + | Component | Value | Ref Range | Performed | Pathologist | | | | | At | Signature | + +-------+ + + + | Glucose, | 166 | 70 - 110 mg/dL | EXTERNAL [...] + +---------+ + + POC Glucose, [facility] (05/22/2016 7:38 AM PST) + +-------+ + + + | Component | Value | Ref Range | Performed | Pathologist | | | | | At | Signature | + +-------+ + + + | Glucose, | 178 | 70 - 110 mg/dL | EXTERNAL [...] + +---------+ + + POC Glucose, [facility] (05/21/2016 8:40 PM PST) + +-------+ + + + | Component | Value | Ref Range | Performed | Pathologist | | | | | At | Signature | + +-------+ + + + | Glucose, | 133 | 70 - 110 mg/dL | EXTERNAL [...] + +---------+ + + POC Glucose, [facility] (05/21/2016 4:43 PM PST) + +-------+ + + + | Component | Value | Ref Range | Performed | Pathologist | | | | | At | Signature | + +-------+ + + + | Glucose, | 124 | 70 - 110 mg/dL | EXTERNAL [...] + +---------+ + + POC Glucose, [facility] (05/21/2016 12:02 PM PST) + +-------+ + + + | Component | Value | Ref Range | Performed | Pathologist | | | | | At | Signature | + +-------+ + + + | Glucose, | 112 | 70 - 110 mg/dL | EXTERNAL [...] | | | + +---------+ + + Basic Metabolic Panel (05/21/2016 7:36 AM PST) + +-------+ + + + | Component | Value | Ref Range | Performed | Pathologist | | | | | At | Signature | + +-------+ + + + | Sodium | 137 | 132 - 143 | EXTERNAL | | | | | mmol/L | LAB | | + +-------+ + + + | Potassium | 4 | 3.3 - 4.9 | EXTERNAL | | | | | mmol/L | LAB | | + +-------+ + + + | Cl | 101 | 95 - 108 mmol/L | EXTERNAL | | | | | | LAB | | + +-------+ + + + | CO2 | 26 | 23 - 34 mmol/L | EXTERNAL | | | | | | LAB | | + +-------+ + + + | Anion Gap | 10 | 7 - 16 | EXTERNAL | | | | | | LAB | | + +-------+ + + + | Calcium | 9.1 | 8.3 - 10.0 | EXTERNAL | | | | | mg/dL | LAB | | + +-------+ + + + | Glucose | 115 | 70 - 110 mg/dL | EXTERNAL | | | | | | LAB | | + +-------+ + + + | BUN, Bld | 21 | 5 - 26 mg/dL | EXTERNAL | | | | | | LAB | | + +-------+ + + + | Creatinine | 1.26 | 0.70 - 1.40 | EXTERNAL | | | | | mg/dL | LAB | | + +-------+ + + + | BUN/Creatin | 16.7 | 7.0 - 24.0 | EXTERNAL | | | ine Ratio | | RATIO | LAB | | + +-------+ + + + | GFR | 55 | >=60 | EXTERNAL | | | [...] +---------+ + + CBC w/ Auto Differential (05/21/2016 7:36 AM PST) + + + + + + | Component | Value | Ref Range | Performed | Pathologist | | | | | At | Signature | + + + + + + | WBC | 11.3 | 4.6 - 10.5 | EXTERNAL | | | | | 1000/mm3 | LAB | | + + + + + + | RBC | 5.12 | 4.36 - 5.83 | EXTERNAL | | | | | mil/mm3 | LAB | | + + + + + + | HGB, | 14.3 | 13.1 - 17.4 | EXTERNAL | | | External | | g/dL | LAB | | + + + + + + | HCT, | 43.5 | 39.0 - 51.9 % | EXTERNAL | | | External | | | LAB | | + + + + + + | MCV | 85 | 82 - 96 fl | EXTERNAL | | | | | | LAB | | + + + + + + | MCH | 27.9 | 27.7 - 32.3 pg | EXTERNAL | | | | | | LAB | | + + + + + + | MCHC | 32.9 | 32.0 - 36.9 | EXTERNAL | | | | | g/dL | LAB | | + + + + + + | RDW-CV | 16.2 | <=17.0 % | EXTERNAL | | | | | | LAB | | + + + + + + | RDW-SD | 50.4 | 34.0 - 57.0 fL | EXTERNAL | | | | | | LAB | | + + + + + + | Platelet | 173 | 150 - 450 | EXTERNAL | | | Count | | 1000/mm3 | LAB | | | Plasma | | | | | + + + + + + | MPV | 11.5 | 9.4 - 12.4 FL | EXTERNAL | | | | | | LAB | | + + + + + + | % Segmented | 66.8 | 42.0 - 76.0 % | EXTERNAL | | | | | | LAB | | | Neutrophils | | | | | + + + + + + | % | 17.3 | 20.0 - 40.0 % | EXTERNAL | | | Lymphocytes | | | LAB | | + + + + + + | % Monocytes | 13.9 | 3.0 - 13.0 % | EXTERNAL | | | | | | LAB | | + + + + + + | % | 1.1 | 0.0 - 7.0 % | EXTERNAL | | | Eosinophils | | | LAB | | + + + + + + | % Basophils | 0.4 | 0.0 - 2.0 % | EXTERNAL | | | | | | LAB | | + + + + + + | % Immature | 0.5 | 0.0 - 0.5 % | EXTERNAL | | | Granulocyte | | | LAB | | | s | | | | | + + + + + + | % nRBC | 0 | 0.0 - 0.2 /100 | EXTERNAL | | | | | WBC | LAB | | + + + + + + | Absolute | 7.53 | 2.80 - 7.70 | EXTERNAL | | | Neutrophils | | 1000/mm3 | LAB | | + + + + + + | Absolute | 1.95 | 1.20 - 3.30 | EXTERNAL | | | Lymphocytes | | 1000/mm3 | LAB | | + + + + + + | Absolute | 1.56 | 0.00 - 0.80 | EXTERNAL | | | Monocytes | | 1000/mm3 | LAB | | + + + + + + | Absolute | 0.12 | 0.00 - 0.70 | EXTERNAL | | | Eosinophils | | 1000/mm3 | LAB | | + + + + + + | Absolute | 0.04 | 0.00 - 0.20 | EXTERNAL | | | Basophils | | 1000/mm3 | LAB | | + + + + + + | Absolute | 0.06 | 0.00 - 0.15 | EXTERNAL | | | Immature | | 1000/mm3 | LAB | | | Granulocyte | | | | | | s | | | | | + + + + + + | Absolute | 0.01 | 0.00 - 0.01 | EXTERNAL | | | nRBC | | 1000/mm3 | LAB | | + + + + + + | SLIDE | SCAN PERFORMED | | EXTERNAL | | | REVIEWED [...] + +---------+ + + POC Glucose, Rapidpoint (05/21/2016 7:21 AM PST) + +-------+ + + + [...] | | | + +---------+ + + Hemoglobin and Hematocrit (05/21/2016 7:08 AM PST) + +-------+ + + + | Component | Value | Ref Range | Performed | Pathologist | | | | | At | Signature | + +-------+ + + + | HGB, | 15 | 13.1 - 17.4 | EXTERNAL | | | External | | g/dL | LAB | | + +-------+ + + + | HCT, | 45 | 39.0 - 51.9 % | EXTERNAL | | | External | | | LAB | | + +-------+ + + + | MCHC | 33.3 | 32.0 - 36.9 | EXTERNAL | | | | | g/dL | LAB | | + +-------+ + + + + + | Specimen | + + | | + + + +---------+ + + | Performing | Address | City/State/Zipcode | Phone Number | | Organization | | | | + +---------+ + + | EXTERNAL LAB | | | | + +---------+ + + US Retroperitoneal Limited (05/21/2016 6:19 AM PST) + + | Specimen | + + | | + + + + + | Narrative | Performed At | + + + | EXAMINATION: ECHO RENAL HISTORY: bilateral - ARF c hx of IDDM | | | COMPARISON STUDY: October 14, 2015 FINDINGS: The right kidney is | | | normal in size, contour and echogenicity. It measures 10.1 x 4.7 x | | | 5.3 cm. There is normal cortical thickness. There is small | | | cortically based cyst measures 14 x 15 mm. The left kidney is | | | normal in size, contour and echogenicity. It measures 10.6 x 5.8 x | | | 5.4 cm. There is normal cortical thickness. Mild | | | lobulations. There is no evidence of hydronephrosis, masses or | | | calculi. No perinephric masses are identified. Bladder is | | | decompressed by catheter. IMPRESSION: The kidneys appear within | | | normal limits. Bladder evaluation is limited due to bowel catheter | | | decompression. JOB #: [id number] Digitally Released by: Parth | | | Massimo Read By: MASSIMO NUNEZ MD Date: 05/22/2016 18:22 | | | | | + + + + + | Procedure Note | + + | Osito, Rad Results In - 04/17/2017 11:42 AM PST EXAMINATION: | | ECHO RENAL | | | | HISTORY: | | bilateral - ARF c hx of IDDM | | | | COMPARISON STUDY: | | October 14, 2015 | | | | FINDINGS: | | The right kidney is normal in size, contour and echogenicity. It measures | | 10.1 x 4.7 x 5.3 cm. There is normal cortical thickness. There is small | | cortically based cyst measures 14 x 15 mm. | | | | The left kidney is normal in size, contour and echogenicity. It measures 10.6 | | x 5.8 x 5.4 cm. There is normal cortical thickness. Mild lobulations. | | There is no evidence of hydronephrosis, masses or calculi. | | | | No perinephric masses are identified. | | | | Bladder is decompressed by catheter. | | | | IMPRESSION: | | The kidneys appear within normal limits. Bladder evaluation is limited due to | | bowel catheter decompression. | | | | | | JOB #: [id number] | | Digitally Released by: Massimo Nunez | | | | | | Read By: MASSIMO NUNEZ MD | | Date: 05/22/2016 18:22 | | | + + Basic Metabolic Panel (05/21/2016 5:00 AM PST) + +-------+ + + + | Component | Value | Ref Range | Performed | Pathologist | | | | | At | Signature | + +-------+ + + + | Sodium | 143 | 132 - 143 | EXTERNAL | | | | | mmol/L | LAB | | + +-------+ + + + | Potassium | 3.7 | 3.3 - 4.9 | EXTERNAL | | | | | mmol/L | LAB | | + +-------+ + + + | Cl | 109 | 95 - 108 mmol/L | EXTERNAL | | | | | | LAB | | + +-------+ + + + | CO2 | 28 | 23 - 34 mmol/L | EXTERNAL | | | | | | LAB | | + +-------+ + + + | Anion Gap | 7 | 7 - 16 | EXTERNAL | | | | | | LAB | | + +-------+ + + + | Calcium | 7.9 | 8.3 - 10.0 | EXTERNAL | | | | | mg/dL | LAB | | + +-------+ + + + | Glucose | 100 | 70 - 110 mg/dL | EXTERNAL | | | | | | LAB | | + +-------+ + + + | BUN, Bld | 13 | 5 - 26 mg/dL | EXTERNAL | | | | | | LAB | | + +-------+ + + + | Creatinine | 0.87 | 0.70 - 1.40 | EXTERNAL | | | | | mg/dL | LAB | | + +-------+ + + + | BUN/Creatin | 14.9 | 7.0 - 24.0 | EXTERNAL | | | ine Ratio | | RATIO | LAB | | + +-------+ + + + | GFR | 60 | >=60 | EXTERNAL | | | [...] | | | + +---------+ + + Hemogram With Platelets (05/21/2016 5:00 AM PST) + +-------+ + + + | Component | Value | Ref Range | Performed | Pathologist | | | | | At | Signature | + +-------+ + + + | WBC | 9.6 | 4.6 - 10.5 | EXTERNAL | | | | | 1000/mm3 | LAB | | + +-------+ + + + | RBC | 2.17 | 4.36 - 5.83 | EXTERNAL | | | | | mil/mm3 | LAB | | + +-------+ + + + | HGB, | 6.3 | 13.1 - 17.4 | EXTERNAL | | | External | | g/dL | LAB | | + +-------+ + + + | HCT, | 19.9 | 39.0 - 51.9 % | EXTERNAL | | | External | | | LAB | | + +-------+ + + + | MCV | 92 | 82 - 96 fl | EXTERNAL | | | | | | LAB | | + +-------+ + + + | MCH | 29 | 27.7 - 32.3 pg | EXTERNAL | | | | | | LAB | | + +-------+ + + + | MCHC | 31.7 | 32.0 - 36.9 | EXTERNAL | | | | | g/dL | LAB | | + +-------+ + + + | RDW-CV | 17.6 | <=17.0 % | EXTERNAL | | | | | | LAB | | + +-------+ + + + | Platelet | 184 | 150 - 450 | EXTERNAL | | | Count | | 1000/mm3 | LAB | | | Plasma | | | | | + +-------+ + + + | MPV | 10.3 | 9.4 - 12.4 FL | EXTERNAL | | | | | | LAB | | + +-------+ + + + | RDW-SD | 57.2 | 34.0 - 57.0 fL | EXTERNAL [...]
--- OUTSIDE RECORDS SUMMARY | ~2019-02-17 | XMS | Encounter Summary ---
Demographics + + + | Address | [address] | | | [place] [address] | + + + | Home Phone | | + + + | Preferred Language | Unknown | + + + | Marital Status | | + + + | Jehovah'S Witness Affiliation | 1025 | + + + | Race | Unknown | + + + | Ethnic Group | Unknown | + + + Author + + + | Author | [facility] | | | and [place] | + + + | Organization | [facility] | | [...] Team Providers + +------+ + | Care Certified Master Safe Technician Name | Role | Phone | + +------+ + | Horacio Silvestre DO | PCP | | + +------+ + Reason for Visit + + + | Reason | Comments | + + + | Transitions Of Care | | + + + Encounter Details +--------+ + + + + | Date | Type | Department | Care Team | Description | +--------+ + + + + | 08/18/ | Telephone | [facility] | Shirlene Wynn, | Transitions Of Care | | 2018 | | [facility] | RN | | | | | [facility] [address] | | | | | | [address] [facility] [place], | | | | | | [place] [address] | | | | | | [phone] | | | +--------+ + + + [...] | | 2019 | Visit | | Jalen, DO [address] | | | | | | [address] | | | | | | [place], [place] | | | | | | [address] | | | | | | [phone] | | | | | | | | +--------+---------+ + + + | 02/26/ | Office | Urology | Lillie Fowler | | | 2018 | Visit | | LILLIE Lopez [address] | | | | | | [address] | | | | | | [place], [place] | | | | | | [address] | | | | | | [phone] | | | | | | | | +--------+---------+ + + + | 03/16/ | Office | Neurology | Theresa, | | | 2018 | Visit | | [address] | | | | | [address] [place], | | | | | | [place] [address] | | | | | | [phone] | | | | | | | | +--------+---------+ + + + | 04/12/ | Office | Primary Care | Massimo Ramos | | | 2019 | Visit | | MD Fer [address] | | | | | | [address] [place] | | | | | | [address] | | | | | | | | +--------+---------+ + + + | 10/03/ | Office | Neurology | Fabián Carias MD | | | 2019 | Visit | | [address] | | | | | | [place] | | | | | | [address] | | | | | | | [...] | | | care | | | Detailer-C | | | | | | | [...] | | | care | | | Detailer-C | | | | | | | [...] | | | care | | | Detailer-C | | | | | | | [...] | | | care | | | Detailer-C | | | | | | | linical | + +--------+ +---+-----+ + + + | Note: Pt will | | check CBG's daily x1 | | Pt will take Lantis as | | prescribed | + + documented as of this encounter Visit Diagnoses Not on filedocumented in this encounter"
--- OUTSIDE RECORDS SUMMARY | ~2019-02-17 | XMS | Encounter Summary ---
Demographics + + + | Address | [address] | | | [place] [address] | + + + | Home Phone [...] Team Providers + +------+ + | Care Coal Washer Name | Role | Phone | + [...] [facility] | DO [address] [place] | | | | | [facility] [address] | [facility], [place] | | | | | [address] [place], | [address] | | | | | [place] [address] | [phone] | | | | | [phone] | | | +--------+ + + + [...] [place] | | | | | | [address] | | | | | | [phone] | | | | | | | | +--------+---------+ + + + | 02/26/ | Office | Urology | Lillie Fowler | | | 2018 | Visit | | LILLIE Lopez [address] | | | | | | [address] | | | | | | [place], [place] | | | | | | [address] | | | | | | [phone] | | | | | | | | +--------+---------+ + + + | 03/16/ | Office | Neurology | Theresa, | | | 2018 | Visit | | [address] | | | | | | [address] [place], | | | | | | [place] [address] | | | | | | [phone] | | | | | | | | +--------+---------+ + + + | 04/12/ | Office | Primary Care | Massimo Ramos | | | 2019 | Visit | | MD Fer [address] | | | | | | [address] [place] | | | | | | [address] | | | | | | | | +--------+---------+ + + + | 10/03/ | Office | Neurology | Fabián Carias MD | | | 2019 | Visit | | [address] | | | | | | [place] | | | | | | [address] | | | | | | | [...] | | | care | | | Paste Up Worker-C | | | | | | [...] | | | care | | | Paste Up Worker-C | | | | | | [...] | | | care | | | Paste Up Worker-C | | | | | | [...] | | | care | | | Paste Up Worker-C | | | | | | [...]
--- OUTSIDE RECORDS SUMMARY | ~2019-02-17 | XMS | Encounter Summary ---
Demographics + + + | Address | [address] | | | [place] [address] | + + + | Home Phone | | + + + | Preferred Language | Unknown | + + + | Marital Status | | + + + | Baptist Affiliation | 1025 | + + + | Race | Unknown | + + + | Ethnic Group | Unknown | + + + Author + + + | Author | [facility] | | | and [place] | + + + | Organization | [facility] | | [...] Team Providers + +------+ + | Care Repair Technician Name | Role | Phone | + +------+ + | Horacio Silvestre DO | PCP | | + +------+ + Reason for Visit + + + | Reason | Comments | + + + | Weight Loss | | + + + Encounter Details +--------+ + + + + | Date | Type | Department | Care Team | Description | +--------+ + + + + | 11/06/ | Telephone | [facility] | Horacio Silvestre, | Weight Loss | | 2019 | | [facility] | DO [address] | | | | | MEDICAL CL[address] | [facility], [place] | | | | | [address] [place], | [address] | | | | | [place] [address] | [phone] | | | | | [phone] | | | +--------+ + + + [...] [place] | | | | | | [address] | | | | | | [phone] | | | | | | | | +--------+---------+ + + + | 02/26/ | Office | Urology | Lillie Fowler | | | 2018 | Visit | | LILLIE Lopez [address] | | | | | | [address] | | | | | | [place], [place] | | | | | | [address] | | | | | | [phone] | | | | | | | | +--------+---------+ + + + | 03/16/ | Office | Neurology | Theresa, | | | 2018 | Visit | | [address] | | | | | | [address] [place], | | | | | | [place] [address] | | | | | | [phone] | | | | | | | | +--------+---------+ + + + | 04/12/ | Office | Primary Care | Massimo Ramos | | | 2019 | Visit | | MD Fer [address] | | | | | | [place] | | | | | | [address] | | | | | | | | +--------+---------+ + + + | 10/03/ | Office | Neurology | Fabián Carias MD | | | 2019 | Visit | | [address] | | | | | | [place] | | | | | | [address] | | | | | | | [...] | | | care | | | Surgeon'S Assistant-C | | | | | | | [...] | | | care | | | Surgeon'S Assistant-C | | | | | | | [...] | | | care | | | Surgeon'S Assistant-C | | | | | | | [...] | | | care | | | Surgeon'S Assistant-C | | | | | | | [...]
--- OUTSIDE RECORDS SUMMARY | ~2019-02-17 | XMS | Encounter Summary ---
Demographics + + + | Address | [address] | | | [place] [address] | + + + | Home Phone | | + + + | Preferred Language | Unknown | + + + | Marital Status | | + + + | Mandaen Affiliation | 1025 | + + + | Race | Unknown | + + + | Ethnic Group | Unknown | + + + Author + + + | Author | [facility] | | | and [place] | + + + | Organization | [facility] | | | [...] Team Providers + +------+ + | Care Nocturnist Name | Role | Phone | + +------+ + | Horacio Silvestre DO | PCP | | + +------+ + Reason for Visit + + + | Reason | Comments | + + + | Medication Refill | | + + + | Medication Refill | | + + + Encounter Details +--------+--------+ + + + | Date | Type | Department | Care Team | Description | +--------+--------+ + + + | 03/12/ | Refill | [facility] | Horacio Silvestre, | Medication Refill; | | 2017 | | [facility] | [address] | Medication Refill | | | | MEDICAL [facility] | [facility], [place] | | | | | [address] [place], | [address] | | | | | [place] [address] | [phone] | | | | | [phone] | | | +--------+--------+ + + + [...] [place] | | | | | | [address] | | | | | | [phone] | | | | | | | | +--------+---------+ + + + | 02/26/ | Office | Urology | Lillie Fowler | | | 2018 | Visit | | LILLIE Lopez [address] | | | | | | [address] | | | | | | [place], [place] | | | | | | [address] | | | | | | [phone] | | | | | | | | +--------+---------+ + + + | 03/16/ | Office | Neurology | Theresa, | | | 2018 | Visit | | [address] | | | | | | [address] [place], | | | | | | [place] [address] | | | | | | [phone] | | | | | | | | +--------+---------+ + + + | 04/12/ | Office | Primary Care | Massimo Ramos | | | 2019 | Visit | | MD Fer [address] | | | | | | [place] | | | | | | [address] | | | | | | | | +--------+---------+ + + + | 10/03/ | Office | Neurology | Fabián Carias MD | | | 2019 | Visit | | [address] | | | | | | [place] | | | | | | [address] | | | | | | | [...] | | | care | | | Electron Microscopist-C | | | | | | | [...] | | | care | | | Electron Microscopist-C | | | | | | | [...] | | | care | | | Electron Microscopist-C | | | | | | | linical | + +--------+ +---+-----+ + + + | Note: Will take | | medications as prescribe | | with managing his | | med gilberter weekly. 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
--- OUTSIDE RECORDS SUMMARY | ~2019-02-17 | XMS | Encounter Summary ---
Demographics + + + | Address | [address] | | | [place] [address] | + + + | Home Phone | | + + + | Preferred Language | Unknown | + + + | Marital Status | | + + + | Anabaptist Affiliation | 1025 | + + + | Race | Unknown | + + + | Ethnic Group | Unknown | + + + Author + + + | Author | [facility] | | | and [place] | + + + | Organization | [facility] | | [...] Team Providers + +------+ + | Care Veterinary Practitioner Name | Role | Phone | + +------+ + | Horacio Silvestre DO | PCP | | + +------+ + Reason for Visit + + + | Reason | Comments | + + + | Medication Question | | + + + Encounter Details +--------+ + + + + | Date | Type | Department | Care Team | Description | +--------+ + + + + | 06/30/ | Telephone | [facility] | Horacio Silvestre, | Medication Question | | 2019 | | [facility] | [address] | | | | | MEDICAL CLIN[address] | [facility], [place] | | | | | [address] [place], | [address] | | | | | [place] [address] | [phone] | | | | | [phone] | | | +--------+ + + + [...] [place] | | | | | | [address] | | | | | | [phone] | | | | | | | | +--------+---------+ + + + | 02/26/ | Office | Urology | Lillie Fowler | | | 2018 | Visit | | LILLIE Lopez [address] | | | | | | [address] | | | | | | [place], [place] | | | | | | [address] | | | | | | [phone] | | | | | | | | +--------+---------+ + + + | 03/16/ | Office | Neurology | Theresa, | | | 2019 | Visit | | [address] | | | | | | [address] [place], | | | | | | [place] [address] | | | | | | [phone] | | | | | | | | +--------+---------+ + + + | 04/12/ | Office | Primary Care | Massimo Ramos | | | 2019 | Visit | | MD Fer [address] | | | | | | [place] | | | | | | [address] | | | | | | | | +--------+---------+ + + + | 10/03/ | Office | Neurology | Fabián Carias MD | | | 2019 | Visit | | [address] | | | | | | [place] | | | | | | [address] | | | | | | | [...] | | | care | | | Head Of Insight-C | | | | | | | [...] | | | care | | | Head Of Insight-C | | | | | | | [...] | | | care | | | Head Of Insight-C | | | | | | | linical | + +--------+ +---+-----+ + + + | Note: Will take | | medications as prescribe | | with managing his | | med ian weekly. | + + + +--------+ +---+-----+ + | Decrease blood sugars | [facility] | Coordinatio | | Yes | Jocelyn, | | | bhupinder | n of | | | Charline Dos Santos, | | | | complex | | | Case | | | | care | | | Head Of Insight-C | | | | | | | [...] (HCC) - Primary | + + | Primary osteoarthritis involving multiple joints | + + | Multilevel degenerative disc disease Degeneration of intervertebral disc, site | | unspecified | + + | half-way current use of opiate analgesic Encounter for long-term (current) use of | | other medications | + + documented in this encounter"
--- OUTSIDE RECORDS SUMMARY | ~2019-02-17 | XMS | Encounter Summary ---
Demographics + + + | Address | [address] | | | [place] [address] | + + + | Home Phone | | + + + | Preferred Language | Unknown | + + + | Marital Status | | + + + | Rastafarian Affiliation | 1025 | + + + | Race | Unknown | + + + | Ethnic Group | Unknown | + + + Author + + + | Author | [facility] | | | and [place] | + + + | Organization | [facility] | | | and [...] Team Providers + +------+ + | Care Drive In Waiter/Waitress Name | Role | Phone | + +------+ + | Massimo Ramos MD | PCP | | + +------+ + Reason for Visit +--------+ + | Reason | Comments | +--------+ + | Other | BPH | +--------+ + Evaluate & Treat (Routine) + + + + + + + | Status | Reason | Specialty | Diagnoses / | Referred By | Referred To | | | | | Procedures | Contact | Contact | + + + + + + + | Authorized | Specialty | Urology | Diagnoses | Marks, | [facility] | | | Services | | Abnormal | Renato Stoll NP | Urology [address] | | | Required | | results of | [address] | [address] | | | | | function | [address] | [place] | | | | | studies of | [place] | | | | | other organs | [id number] | [address] | | | | | and systems | Phone: | Phone: | | | | | Procedures | [phone] | [phone] | | | | | OV | Fax: | Fax: | | | | | | [phone] | [phone] | + + + + + + + Encounter Details +--------+---------+ + + + | Date | Type | Department | Care Team | Description | +--------+---------+ + + + | 01/27/ | Office | [facility] | Lillie Fowler | Benign prostatic | | 2019 | Visit | [facility] | [address] | hyperplasia with | | | | [address] | [address] | urinary frequency | | | | [place] | [place] | (Primary Dx); | | | | [address] | [address] | Erectile | | | | [phone] | [phone] | dysfunction, | | | | | | unspecified erectile | | | | | | dysfunction type; | | | | | | Candidiasis | +--------+---------+ + + + Social History + + [...] this encounter Last Filed Vital Signs + +---------+ + + | Vital Sign | Reading | Time Taken | Comments | + +---------+ + + | Blood Pressure | 124/71 | 01/27/2019 10:19 AM | | | | | PDT | | + +---------+ + + | Pulse | 91 | 01/27/2019 10:19 AM | | | | | PDT | | + +---------+ + + | Temperature | - | - | | + +---------+ + + | Respiratory Rate | 20 | 01/27/2019 10:19 AM | | | | | PDT | | + +---------+ + + | Oxygen Saturation | 95% | 01/27/2019 10:19 AM | | | | | PDT | | + +---------+ + + | Inhaled Oxygen | - | - | | | Concentration | | | | + +---------+ + + | Weight | - | - | | + +---------+ + + | Height | - | - | | + +---------+ + + | Body Mass Index | - | - | | + +---------+ + + documented in this encounter Functional [...] + + documented as of this encounter Patient Instructions Patient Instructions Lillie Fowler PA-C - 01/27/2019 10:30 AM PDTTry the Sildenafil on an empty stomach, you may take 5 tabs safely, about an hour prior to sex. Find out if yo u are taking Flomax (tamsulosin). Return in 4 weeks for a voiding profile. Have your bladd er comfortably full. Use the nystatin cream on the groin rash. Use it for at least 5 days after rash resolves. Use powder to keep dry. documented in this encounter Progress Notes Lillie Fowler PA-C - 01/27/2019 10:30 AM PDTFormatting of this note might be differe nt from the original. Urology Office Visit 01/27/2019 Subjective: HPI Geraldo Mcfadden is a 78 y.o. male patient of Massimo Ramos MD Chief Complaint: Other (BPH) HPI: This is a new patient, an 78-year-old white male who is referred for lower urina ry tract symptoms. The patient does not really know why he was referred. He does report a slow stream and some hesitation and occasional uncontrolled loss of urine with urgency. How ever, he reports that his symptoms do not bother him. His AUA score today is 9/35 and he ra hermes himself as #2, mostly satisfied. However, he does report that he almost always has diff iculty postponing urination. He also does have some postvoid dribble. He is unable to tell me if he is taking Flomax or not. I asked him to make sure he knew when he returns next ti me. He is on testosterone patches. His last PSA was very good at 0.50. He mostly wants to discuss his erectile dysfunction. He has not had a PDE 5 inhibitor and would like to try 1 . He is not on any contraindicated medications. He also had questions regarding a rash stephanie t he gets in his groin. It is consistent with candidiasis. Visit Diagnoses: 1. Benign prostatic hyperplasia with urinary frequency 2. Erectile dysfunction, unspecified erectile dysfunction type 3. Candidiasis Allergies Allergen Reactions Ambien [Zolpidem] Anaphylaxis Immunization History Administered Date(s) Administered INFLUENAZ PF TRIVALENT INTRADERMAL 12/07/2015 INFLUENZA 63 Y OR >, TRIVALENT HIGH-DOSE 01/07/2019 INFLUENZA PF QUAD(PED/ADOL/ADULT),PSKT or VIAL 01/16/2017, 01/11/2018 INFLUENZA TRIV W/PRES(PED/ADOL/ADULT),MULTIDOSE 12/07/2015 PNEUMOCOCCAL CONJUGATE 13-VALENT (PCV13) 08/24/2018 TDAP, (ADOL/ADULT) 01/07/2019 Current Outpatient Medications Medication Sig albuterol 2.5 mg/3 mL nebulizer solution Take 3 mLs by nebulization every 4 hours as ne eded for Shortness of Breath. albuterol-ipratropium 2.5-0.5 mg/3 mL SOLN Take 3 mLs by nebulization every 6 hours. amLODIPine (NORVASC) 10 MG tablet Take 10 mg by mouth every morning. aspirin 325 mg tablet Take 325 mg by mouth every morning. atorvaSTATin (LIPITOR) 10 mg tablet Take 2 tablets by mouth nightly. cholecalciferol (VITAMIN D-3) 1000 units TABS Take 2,000 Units by mouth every morning. clopidogrel (PLAVIX) 75 mg tablet Take 75 mg by mouth every morning. cyanocobalamin (VITAMIN B-12) 1000 MCG tablet Take 1,000 mcg by mouth every morning. DULoxetine (CYMBALTA) [address] capsule Take 60 mg by mouth every morning. HYDROcodone-acetaminophen (NORCO) 5-325 mg per tablet Take 1-2 tablets by mouth every 4 hours as needed for Pain. insulin glargine (LANTUS) 100 units/mL injection (vial) Inject 60 Units under the skin nightly. losartan (COZAAR) 50 mg tablet Take 1 tablet by mouth every morning. nystatin (MYCOSTATIN) 247512 UNIT/GM cream Apply topically 2 times daily. pregabalin (LYRICA) 300 MG capsule Take 300 mg by mouth 2 times daily. sildenafil (REVATIO) 20 mg tablet Take 1 tablet by mouth Daily. As needed; may take up to 5 tabs safely. tamsulosin (FLOMAX) 0.4 mg CAPS Take 0.4 mg by mouth nightly. testosterone (ANDRODERM) 2 mg/[address] 1 patch onto the skin nightly. traMADol (ULTRAM) 50 mg tablet Take 1 tablet by mouth every 8 hours as needed. traZODone (DESYREL) 100 mg tablet Take 100 mg by mouth nightly. No current facility-administered medications for this visit. Past Medical History He has a past medical history of Carpal tunnel syndrome, bilateral (05/31/2013), DDD (degene rative disc disease), cervical (05/22/2013), Diabetes mellitus (HCC), GERD (gastroesophageal reflux disease), Gout, Hiatal hernia, Hypertension, Melanoma (HCC), Melanoma (HCC), 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, left (HCC), Neck pain, chronic (05/22/2013), Neuropathy, Paresthesias - both hands (05/22/2013), and Thyroid disease. Past Surgical History He has a past surgical history that includes Appendectomy; Azul; Azul Takedown; Shawn tral incisional hernia repair; Mohs surgery (Left); and Cataract Removal (Right, 04/28/2017). Family History: His family history includes Arthritis in his maternal grandfather; Diabetes in his mother; Heart disease in his father and maternal grandfather; Other (see comment) in his paternal gr andmother. Social History: He reports that he quit smoking about 44 years ago. His smoking use included cigarettes. He has a 45.00 pack-year smoking history. He has never used smokeless tobacco. He reports that he has current or past drug history. Drug: Methamphetamines. He reports that he does not dr ink alcohol. Review of Systems Constitutional: Positive for malaise/fatigue. Negative for chills, fever and weight loss. Also positive for weight gain/obesity. HENT: Negative for ear pain and sore throat. Positive for dry mouth. Eyes: Negative for pain. Positive for vision changes. Respiratory: Negative for cough and shortness of breath. Cardiovascular: Negative for chest pain, palpitations and leg swelling. Gastrointestinal: Negative for abdominal pain, constipation, diarrhea, nausea and vomiting. Genitourinary: Negative for dysuria, frequency, hematuria and urgency. Positive for hesitation of urine stream, slow/weak stream, waking up at night to urina te times one, uncontrolled loss of urine with urgency, post void dribble, difficulty getting or maintaining an erection. Musculoskeletal: Positive for back pain. Negative for joint pain. Skin: Negative for rash. Neurological: Positive for dizziness. Negative for tingling and headaches. Endo/Heme/Allergies: Does not bruise/bleed easily. Psychiatric/Behavioral: Negative for depression. The patient is nervous/anxious. The patien t does not have insomnia. Objective BP 124/71 | Pulse 91 | Resp 20 | SpO2 95% Physical Exam Constitutional: He is oriented to person, place, and time. He appears well-developed and we ll-nourished. HENT: Head: Normocephalic and atraumatic. Eyes: Pupils are equal, round, and reactive to light. Neck: Normal range of motion. Neck supple. Cardiovascular: Normal rate, regular rhythm and normal heart sounds. Pulmonary/Chest: Effort normal and breath sounds normal. Abdominal: Soft. Bowel sounds are normal. Genitourinary: Rectum normal and penis normal. Genitourinary Comments: Prostate enlarged 1+, benign. Erythematous rash in the groin area, consistent with candidiasis. Musculoskeletal: Normal range of motion. Neurological: He is alert and oriented to person, place, and time. Skin: Skin is warm and dry. Psychiatric: He has a normal mood and affect. His behavior is normal. Judgment and thought content normal. Vitals reviewed. Assessment And Plans Geraldo was seen today for other. Diagnoses and all orders for this visit: Benign prostatic hyperplasia with urinary frequency Erectile dysfunction, unspecified erectile dysfunction type - sildenafil (REVATIO) 20 mg tablet; Take 1 tablet by mouth Daily. As needed; may take up to 5 tabs safely. Candidiasis - nystatin (MYCOSTATIN) 974959 UNIT/GM cream; Apply topically 2 times daily. The patient was given prescriptions for sildenafil and nystatin cream. He will find out if he is taking Flomax. He will return in about a month for voiding profile and bladder ultra sound. He will let me know if any new or worsening symptoms in the interim. Care instructions and warning signs were discussed. Medication side effects reviewed. Return in about 1 month (around 02/24/2019) for voiding profile/bladder ultrasound. Lillie Fowler PA-C Lara [facility] FIELD SALES CONSULTANT - 01/27/2019 10:30 AM PDT12/08/2018 PSA documented in this encounter Plan of Treatment [...] [place] | | | | | | [address] | | | | | | [phone] | | | | | | | | +--------+---------+ + + + | 02/26/ | Office | Urology | Lillie Fowler | | | 2018 | Visit | | [address] | | | | | | [address] | | | | | | [place], [place] | | | | | | [address] | | | | | | [phone] | | | | | | | | +--------+---------+ + + + | 03/16/ | Office | Neurology | Theresa, | | | 2018 | Visit | | [address] | | | | | [address] [place], | | | | | | [place] [address] | | | | | | [phone] | | | | | | | | +--------+---------+ + + + | 04/12/ | Office | Primary Care | Massimo Ramos | | | 2019 | Visit | | MD Fer [address] | | | | | | [place] | | | | | | [address] | | | | | | | | +--------+---------+ + + + | 10/03/ | Office | Neurology | Fabián Carias MD | | | 2019 | Visit | | [address] | | | | | | [place] | | | | | | [address] | | | | | | | [...] | | | care | | | In Process Inspector-C | | | | | | | [...] | | | care | | | In Process Inspector-C | | | | | | | [...] | | | care | | | In Process Inspector-C | | | | | | | [...] | | | care | | | In Process Inspector-C | | | | | | | linical | + +--------+ +---+-----+ + + + | Note: Pt will | | check CBG's daily x1 | | Pt will take Lantis as | | prescribed | + + documented as of this encounter Visit Diagnoses + + | Diagnosis | + + | Benign prostatic hyperplasia with urinary frequency - Primary | + + | Erectile dysfunction, unspecified erectile dysfunction type | + + | Candidiasis Candidiasis of unspecified site | + + documented in this encounter Additional Health Concerns + + + + | Infection | Noted Time | Resolved Time | + + + + | Methicillin-resistant Staphylococcus aureus | 07/20/2018 4:00 PM | | | | PDT | | + + + + documented as of this encounter"
--- OUTSIDE RECORDS SUMMARY | ~2019-02-17 | XMS | Encounter Summary ---
Demographics + + + | Address | [address] | | | [place] [address] | + + + | Home Phone | | + + + | Preferred Language | Unknown | + + + | Marital Status | | + + + | Denominational Affiliation | 1025 | + + + [...] Team Providers + +------+ + | Care Brim Blocker Name | Role | Phone | + [...] Medication Refill | | 2017 | | [facility] | DO [address] | | | | | [facility] | [facility], [place] | | | | | [address] [place], | [address] | | | | | [place] [address] | [phone] | | | | | [phone] | | | +--------+--------+ + + + [...] [place] | | | | | | [address] | | | | | | [phone] | | | | | | | | +--------+---------+ + + + | 02/26/ | Office | Urology | Lillie Fowler | | | 2018 | Visit | | [address] | | | | | | [address] | | | | | | [place], [place] | | | | | | [address] | | | | | | [phone] | | | | | | | | +--------+---------+ + + + | 03/16/ | Office | Neurology | Theresa, | | | 2018 | Visit | | [address] | | | | | [address] [place], | | | | | | [place] [address] | | | | | | [phone] | | | | | | | | +--------+---------+ + + + | 04/12/ | Office | Primary Care | Massimo Ramos | | | 2019 | Visit | | MD Fer [address] | | | | | | [place] | | | | | | [address] | | | | | | | | +--------+---------+ + + + | 10/03/ | Office | Neurology | Fabián Carias MD | | | 2019 | Visit | | [address] | | | | | | [place] | | | | | | [address] | | | | | | | [...] | | | care | | | Seed Service Advisor-C | | | | | | | [...] | | | care | | | Seed Service Advisor-C | | | | | | | [...] | | | care | | | Seed Service Advisor-C | | | | | | | [...] | | | care | | | Seed Service Advisor-C | | | | | | | [...] | | unspecified | + + | 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
--- OUTSIDE RECORDS SUMMARY | ~2019-02-17 | XMS | Encounter Summary ---
Demographics + + + | Address | [address] | | | [place] [address] | + + + | Home Phone | | + + + | Preferred Language | Unknown | + + + | Marital Status | | + + + | Restoration Affiliation | 1025 | + + + | Race | Unknown | + + + | Ethnic Group | Unknown | + + + Author + + + | Author | [facility] | | | and [place] | + + + | Organization | [facility] | | | [...] Team Providers + +------+ + | Care Consumer Loan Underwriter Name | Role | Phone | + +------+ + | Ryan Gutiérrez MD | PCP | | + +------+ + Encounter Details +--------+ + + + + | Date | Type | Department | Care Team | Description | +--------+ + + + + | 11/08/ | Hospital | [facility] | Clay Juan | | | 2016 | Encounter | HOSPITAL EMERGENCY | [address] | | | | | [address] | [facility] | | | | | DR [place], [place] | [place] [address] | | | | | [address] | [phone] | | | | | [phone] | | | +--------+ + + + [...] [place] | | | | | | [address] | | | | | | [phone] | | | | | | | | +--------+---------+ + + + | 02/26/ | Office | Urology | Lillie Fowler | | | 2018 | Visit | | [address]IE Lopez [address] | | | | | | [address] | | | | | | [place] | | | | | | [address] | | | | | | [phone] | | | | | | | | +--------+---------+ + + + | 03/16/ | Office | Neurology | Theresa, | | | 2018 | Visit | | [address] | | | | | [address] [place], | | | | | | [place] [address] | | | | | | [phone] | | | | | | | | +--------+---------+ + + + | 04/12/ | Office | Primary Care | Massimo Ramos | | | 2019 | Visit | | MD [address] | | | | | | [place] | | | | | | [address] | | | | | | | | +--------+---------+ + + + | 10/03/ | Office | Neurology | Fabián Carias MD | | | 2019 | Visit | | [address] | | | | | | [place] | | | | | | [address] | | | | | | | [...] | | | care | | | Labor Relations Manager-C | | | | | | [...] | | | care | | | Labor Relations Manager-C | | | | | | [...] | | | care | | | Labor Relations Manager-C | | | | | | [...] | | | care | | | Labor Relations Manager-C | | | | | | [...] + | POC GLUCOSE, | Routin | 11/09/2015 | | Results for this | | RAPIDPOINT | e | 2:31 PM | | procedure are in the | | | | PDT | | results section. | + +--------+ + + + | BLOOD GAS, ARTERIAL | STAT | 11/09/2015 | | Results for this | | | | 12:03 PM | | procedure are in the | | | | PDT | | results section. | + +--------+ + + + | T4, FREE | Routin | 11/09/2015 | | Results for this | | | e | 12:01 PM | | procedure are in the | | | | PDT | | results section. | + +--------+ + + + | TROPONIN I | STAT | 11/09/2015 | | Results for this | | | | 10:28 AM | | procedure are in the | | | | PDT | | results section. | + +--------+ + + + | URINALYSIS WITH | STAT | 11/09/2015 | | Results for this | | MICROSCOPIC WITH | | 10:13 AM | | procedure are in the | | CULTURE IF INDICATED | | PDT | | results section. | + +--------+ + + + | CBC W/AUTO | STAT | 11/09/2015 | | Results for this | | DIFFERENTIAL | | 10:13 AM | | procedure are in the | | | | PDT | | results section. | + +--------+ + + + | ACETONE | STAT | 11/09/2015 | | Results for this | | | | 10:13 AM | | procedure are in the | | | | PDT | | results section. | + +--------+ + + + | TSH | STAT | 11/09/2015 | | Results for this | | | | 10:13 AM | | procedure are in the | | | | PDT | | results section. | + +--------+ + + + | MAGNESIUM | STAT | 11/09/2015 | | Results for this | | | | 10:13 AM | | procedure are in the | | | | PDT | | results section. | + +--------+ + + + | LACTIC ACID | STAT | 11/09/2015 | | Results for this | | | | 10:13 AM | | procedure are in the | | | | PDT | | results section. | + +--------+ + + + | COMPREHENSIVE | STAT | 11/09/2015 | | Results for this | | METABOLIC PANEL | | 10:13 AM | | procedure are in the | | | | PDT | | results section. | + +--------+ + + + documented in this encounter Results POC Glucose, Rapidpoint (11/09/2015 2:31 PM PDT) + +-------+ + + + | Component | Value | Ref Range | Performed | Pathologist | | | | | At | Signature | + +-------+ + + + | Glucose, | 288 | 70 - 110 mg/dL | EXTERNAL [...] + +---------+ + + Blood Gas, Arterial (11/09/2015 12:03 PM PDT) + + + + + + | Component | Value | Ref Range | Performed | Pathologist | | | | | At | Signature | + + + + + + | pH | 7.39 | 7.35 - 7.45 PH | EXTERNAL | | | | | UNITS | LAB | | + + + + + + | PCO2 | 30 | 35 - 45 mm Hg | EXTERNAL | | | | | | LAB | | + + + + + + | PO2 | 88 | 69 - 116 mm Hg | EXTERNAL | | | | | | LAB | | + + + + + + | pH Temp | 7.4 | 7.35 - 7.45 PH | EXTERNAL | | | Corrected | | UNITS | LAB | | + + + + + + | CARBON | 29 | 35 - 45 mm Hg | EXTERNAL | | | DIOXIDE | | | LAB | | | TEMP | | | | | | CORRECTED | | | | | | (REF) | | | | | + + + + + + | PO2 TEMP | 86 | 69 - 116 mm Hg | EXTERNAL | | | CORRECTED | | | LAB | | | (REF) | | | | | + + + + + + | S-O2 SAT | 97 | 95 - 99 % | EXTERNAL | | | ART | | | LAB | | + + + + + + | BASE EXCESS | -6.3 | -2.4 - 2.3 | EXTERNAL | | | | | mEq/L | LAB | | + + + + + + | HCO3 | 18 | 17 - 28 mmol/L | EXTERNAL | | | | | | LAB | | + + + + + + | CO2 | 19 | 23 - 27 mmol/L | EXTERNAL | | | | | | LAB | | + + + + + + | FiO2 | 21.0 | % | EXTERNAL | | | | | | LAB | | + + + + + + | Temp, POC | 36.6 | C | EXTERNAL | | | [...] | + +---------+ + + T4, Free (11/09/2015 12:01 PM PDT) + +-------+ + + + | Component | Value | Ref Range | Performed | Pathologist | | | | | At | Signature | + +-------+ + + + | FT4 | 1.1 | 0.67 - 1.51 | EXTERNAL | | | | | [...] | + +---------+ + + Troponin I (11/09/2015 10:28 AM PDT) + +-------+ + + + [...] Urinalysis with Microscopic with Culture if Indicated (11/09/2015 10:13 AM PDT) + + + + + [...] + + + + | Specific | 1.02 | 1.005 - 1.030 | EXTERNAL | | | [place], | | | LAB | | | [...] + + + + | Protein, | 30 | NEGATIVE mg/dL | EXTERNAL | | | Urine | | | LAB | | + + + + + + | Glucose, | 1000 | NORMAL mg/dL | EXTERNAL | | | Urine | | | LAB | | + + + + + + | Reducing | NOT REQUIRED | | EXTERNAL | | | Substance, | | | LAB | | | UA, POC | | | | | + + + + + + | Ketones, | 15 | NEGATIVE mg/dL | EXTERNAL [...] + + + + | Blood, | 25 | NEGATIVE /uL | EXTERNAL | | [...] + + + + | SQUAMOUS | NONE SEEN | /LPF | EXTERNAL | | | [...] | | | + +---------+ + + Acetone (11/09/2015 10:13 AM PDT) + +-------+ + + + | Component | Value | Ref Range | Performed | Pathologist | | | | | At | Signature | + +-------+ + + + | Ketones | 1.9 | <=0.6 mmol/L | EXTERNAL | | | | [...] | | + +---------+ + + TSH (11/09/2015 10:13 AM PDT) + +-------+ + + + | Component | Value | Ref Range | Performed | Pathologist | | | | | At | Signature | + +-------+ + + + | TSH | 8.89 | 0.40 - 4.68 | EXTERNAL | | | | | mIU/L | LAB | | + +-------+ + + + + + | Specimen | + + | | + + + +---------+ + + | Performing | Address | City/State/Zipcode | Phone Number | | Organization | | | | + +---------+ + + | EXTERNAL LAB | | | | + +---------+ + + Magnesium (11/09/2015 10:13 AM PDT) + +-------+ + + + | Component | Value | Ref Range | Performed | Pathologist | | | | | At | Signature | + +-------+ + + + | Magnesium | 1.9 | 1.8 - 2.4 mg/dL | EXTERNAL | | | | | | LAB | | + +-------+ + + + + + | Specimen | + + | | + + + +---------+ + + | Performing | Address | City/State/Zipcode | Phone Number | | Organization | | | | + +---------+ + + | EXTERNAL LAB | | | | + +---------+ + + Lactic Acid (11/09/2015 10:13 AM PDT) + +-------+ + + + | Component | Value | Ref Range | Performed | Pathologist | | | | | At | Signature | + +-------+ + + + | Lactate, | 1.6 | 0.4 - 2.1 | EXTERNAL | | | Serum | | mmol/L | LAB | | + +-------+ + + + + + | Specimen | + + | | + + + +---------+ + + | Performing | Address | City/State/Zipcode | Phone Number | | Organization | | | | + +---------+ + + | EXTERNAL LAB | | | | + +---------+ + + Comprehensive Metabolic Panel (11/09/2015 10:13 AM PDT) + +-------+ + + + | Component | Value | Ref Range | Performed | Pathologist | | | | | At | Signature | + +-------+ + + + | Sodium | 128 | 132 - 143 | EXTERNAL | | | | | mmol/L | LAB | | + +-------+ + + + | Potassium | 4.7 | 3.3 - 4.9 | EXTERNAL | | | | | mmol/L | LAB | | + +-------+ + + + | Cl | 94 | 95 - 108 mmol/L | EXTERNAL | | | | | | LAB | | + +-------+ + + + | CO2 | 20 | 23 - 34 mmol/L | EXTERNAL | | | | | | LAB | | + +-------+ + + + | Anion Gap | 14 | 7 - 16 | EXTERNAL | | | | | | LAB | | + +-------+ + + + | Calcium | 9.7 | 8.3 - 10.0 | EXTERNAL | | | | | mg/dL | LAB | | + +-------+ + + + | Glucose | 438 | 70 - 110 mg/dL | EXTERNAL | | | | | | LAB | | + +-------+ + + + | BUN, Bld | 33 | 5 - 26 mg/dL | EXTERNAL | | | | | | LAB | | + +-------+ + + + | Creatinine | 1.39 | 0.70 - 1.40 | EXTERNAL | | | | | mg/dL | LAB | | + +-------+ + + + | BUN/Creatin | 23.7 | 7.0 - 24.0 | EXTERNAL | | | ine Ratio | | RATIO | LAB | | + +-------+ + + + | GFR | 50 | >=60 | EXTERNAL | | | ESTIMATE | | mL/min/1.73m2 | LAB | | + +-------+ + + + | Bilirubin, | 0.6 | <=1.2 mg/dL | EXTERNAL | | | Total | | | LAB | | + +-------+ + + + | Protein, | 8.8 | 6.6 - 8.5 g/dL | EXTERNAL | | | Total | | | LAB | | + +-------+ + + + | Albumin | 4.3 | 3.0 - 4.5 g/dL | EXTERNAL | | | | | | LAB | | + +-------+ + + + | Alkaline | 81 | 46 - 116 U/L | EXTERNAL | | | Phosphatase | | | LAB | | + +-------+ + + + | ALT, | 31 | 16 - 63 U/L | EXTERNAL | | | External | | | LAB | | + +-------+ + + + | AST, | 30 | <=38 U/L | EXTERNAL | | [...] +---------+ + + CBC w/ Auto Differential (11/09/2015 10:13 AM PDT) + +-------+ + + + | Component | Value | Ref Range | Performed | Pathologist | | | | | At | Signature | + +-------+ + + + | WBC | 10.2 | 4.6 - 10.5 | EXTERNAL | | | | | 1000/mm3 | LAB | | + +-------+ + + + | RBC | 4.83 | 4.36 - 5.83 | EXTERNAL | | | | | mil/mm3 | LAB | | + +-------+ + + + | HGB, | 14.8 | 13.1 - 17.4 | EXTERNAL | | | External | | g/dL | LAB | | + +-------+ + + + | HCT, | 42.7 | 39.0 - 51.9 % | EXTERNAL | | | External | | | LAB | | + +-------+ + + + | MCV | 88 | 82 - 96 fl | EXTERNAL | | | | | | LAB | | + +-------+ + + + | MCH | 30.6 | 27.7 - 32.3 pg | EXTERNAL | | | | | | LAB | | + +-------+ + + + | MCHC | 34.7 | 32.0 - 36.9 | EXTERNAL | | | | | g/dL | LAB | | + +-------+ + + + | RDW-CV | 14.3 | <=17.0 % | EXTERNAL | | | | | | LAB | | + +-------+ + + + | RDW-SD | 45.1 | 34.0 - 57.0 fL | EXTERNAL | | | | | | LAB | | + +-------+ + + + | Platelet | 227 | 150 - 450 | EXTERNAL | | | Count | | 1000/mm3 | LAB | | | Plasma | | | | | + +-------+ + + + | MPV | 11.5 | 9.4 - 12.4 FL | EXTERNAL | | | | | | LAB | | + +-------+ + + + | % Segmented | 63.8 | 42.0 - 76.0 % | EXTERNAL | | | | | | LAB | | | Neutrophils | | | | | + +-------+ + + + | % | 23 | 20.0 - 40.0 % | EXTERNAL | | | Lymphocytes | | | LAB | | + +-------+ + + + | % Monocytes | 11.6 | 3.0 - 13.0 % | EXTERNAL | | | | | | LAB | | + +-------+ + + + | % | 1.2 | 0.0 - 7.0 % | EXTERNAL | | | Eosinophils | | | LAB | | + +-------+ + + + | % Basophils | 0.4 | 0.0 - 2.0 % | EXTERNAL | | | | | | LAB | | + +-------+ + + + | Absolute | 6.53 | 2.80 - 7.70 | EXTERNAL | | | Neutrophils | | 1000/mm3 | LAB | | + +-------+ + + + | Absolute | 2.35 | 1.20 - 3.30 | EXTERNAL | | | Lymphocytes | | 1000/mm3 | LAB | | + +-------+ + + + | Absolute | 1.19 | 0.00 - 0.80 | EXTERNAL | | | Monocytes | | 1000/mm3 | LAB | | + +-------+ + + + | Absolute | 0.12 | 0.00 - 0.70 | EXTERNAL | | | Eosinophils | | 1000/mm3 | LAB | | + +-------+ + + + | Absolute | 0.04 | 0.00 - 0.20 | EXTERNAL | | | Basophils | | 1000/mm3 | LAB | | + +-------+ + + + | SLIDE | NO | | EXTERNAL | | | REVIEWED [...]
--- OUTSIDE RECORDS SUMMARY | ~2019-02-17 | XMS | Encounter Summary ---
Demographics + + + | Address | [address] | | | [place] [address] | + + + | Home Phone | | + + + | Preferred Language | Unknown | + + + | Marital Status | | + + + | Denominational Affiliation | 1025 | + + + | Race | Unknown | + + + | Ethnic Group | Unknown | + + + Author + + + | Author | [facility] | | | and [place] | + + + | Organization | [facility] | | | and [...] Team Providers + +------+ + | Care Blood Bank Supervisor Name | Role | Phone | + +------+ + PCP | Unavailable | + +------+ + Encounter Details +--------+ + + + + | Date | Type | Department | Care Team | Description | +--------+ + + + + | 09/25/ | Hospital | [facility] | Ryan Gutiérrez | | | 2009 | Encounter | HOSPITAL XRAY [address] | [address] | | | | | [address] | [address] | | | | | [place], [place] | [place] [address] | | | | | [address] | [phone] | | | | | [phone] | | | +--------+ + + + [...] [place] | | | | | | [address] | | | | | | [phone] | | | | | | | | +--------+---------+ + + + | 02/26/ | Office | Urology | Lillie Fowler | | | 2018 | Visit | | [address]IE [address] | | | | | | [address] | | | | | | [place], [place] | | | | | | [address] | | | | | | [phone] | | | | | | | | +--------+---------+ + + + | 03/16/ | Office | Neurology | Theresa, | | | 2018 | Visit | | [address] | | | | | [address] [place], | | | | | | [place] [address] | | | | | | [phone] | | | | | | | | +--------+---------+ + + + | 04/12/ | Office | Primary Care | Massimo Ramos | | | 2019 | Visit | | MD [address] | | | | | | [place] | | | | | | [address] | | | | | | | | +--------+---------+ + + + | 10/03/ | Office | Neurology | Fabián Carias MD | | | 2019 | Visit | | [address] | | | | | | [place] | | | | | | [address] | | | | | | | [...] | | | care | | | Car Hostler-C | | | | | | | [...] | | | care | | | Car Hostler-C | | | | | | | [...] yle | n of | | | hCarline Dos Santos, | | | | complex | | | Case | | | | care | | | Car Hostler-C | | | | | | | [...] | | | care | | | Car Hostler-C | | | | | | | linical | + +--------+ +---+-----+ + + + | Note: Pt will | | check CBG's daily x1 | | Pt will take Lantis as | | prescribed | + + documented as of this encounter Visit Diagnoses Not on filedocumented in this encounter"
--- OUTSIDE RECORDS SUMMARY | ~2019-02-17 | XMS | Encounter Summary ---
Demographics + + + | Address | [address] | | | [place] [address] | + + + | Home Phone | | + + + | Preferred Language | Unknown | + + + | Marital Status | | + + + | Pentecostal Affiliation | 1025 | + + + | Race | Unknown | + + + | Ethnic Group | Unknown | + + + Author + + + | Author | [facility] | | | and [place] | + + + | Organization | [facility] | | | [...] Team Providers + +------+ + | Care Moss Bleacher Name | Role | Phone | + +------+ + | Ryan Gutiérrez MD | PCP | | + +------+ + Encounter Details +--------+ + + + + | Date | Type | Department | Care Team | Description | +--------+ + + + + | 07/10/ | Hospital | [facility] | Scott De Oliveira | | | 2016 | Encounter | HOSPITAL GENERAL | [address] | | | | | SURGERY [address] | [address] | | | | | [address] [place], | [facility], [place] | | | | | [place] [address] | [address] | | | | | [phone] | | | | | | | [...] [place] | | | | | | [address] | | | | | | [phone] | | | | | | | | +--------+---------+ + + + | 02/26/ | Office | Urology | Lillie Fowler | | | 2018 | Visit | | [address]IE [address] | | | | | | [address] | | | | | | [place] | | | | | | [address] | | | | | | [phone] | | | | | | | | +--------+---------+ + + + | 03/16/ | Office | Neurology | Theresa, | | | 2018 | Visit | | [address] | | | | | [address] [place], | | | | | | [place] [address] | | | | | | [phone] | | | | | | | | +--------+---------+ + + + | 04/12/ | Office | Primary Care | Massimo Ramos | | | 2019 | Visit | | MD [address] | | | | | | [place] | | | | | | [address] | | | | | | | | +--------+---------+ + + + | 10/03/ | Office | Neurology | Fabián Carias MD | | | 2019 | Visit | | [address] | | | | | | [place] | | | | | | [address] | | | | | | | [...] | | | care | | | Registered Private Duty Nurse-C | | | | | | | [...] | | | care | | | Registered Private Duty Nurse-C | | | | | | | [...] | | | care | | | Registered Private Duty Nurse-C | | | | | | | [...] | | | care | | | Registered Private Duty Nurse-C | | | | | | | linical | + +--------+ +---+-----+ + + + | Note: Pt will | | check CBG's daily x1 | | Pt will take Lantis as | | prescribed | + + documented as of this encounter Visit Diagnoses Not on filedocumented in this encounter"
--- OUTSIDE RECORDS SUMMARY | ~2019-02-17 | XMS | Encounter Summary ---
Demographics + + + | Address | [address] | | | [place] [address] | + + + | Home Phone | | + + + | Preferred Language | Unknown | + + + | Marital Status | | + + + | Alevism Affiliation | 1025 | + + + | Race | Unknown | + + + | Ethnic Group | Unknown | + + + Author + + + | Author | [facility] | | | and [place] | + + + | Organization | [facility] | | | [...] Team Providers + +------+ + | Care Manager Review Name | Role | Phone | + +------+ + | Horacio Silvestre DO | PCP | | + +------+ + Reason for Visit Auth/Cert +--------+--------+ + + + + | Status | Reason | Specialty | Diagnoses / | Referred By | Referred To | | | | | Procedures | Contact | Contact | +--------+--------+ + + + + | | | | Diagnoses | | | | | | | cataract | | | | | | | Procedures | | | | | | | CATARACT | | | | | | | REMOVAL | | | +--------+--------+ + + + + Encounter Details +--------+ + + + + | Date | Type | Department | Care Team | Description | +--------+ + + + + | 04/28/ | Hospital | [facility] | Tay Kern | | | 2018 | Encounter | [facility] | MD [address] | | | | | [address] [place] | [address] | | | | | [place] | [place] [address] | | | | | [address] | [phone] | | | | | [phone] | | | +--------+ + + + [...] + + + | Blood Pressure | 108/66 | 04/28/2017 10:50 AM | | | | | PST | | + + + + + | Pulse | 54 | 04/28/2017 10:50 AM | | | | | PST | | + + + + + | Temperature | 36.1 C (97 F) | 04/28/2017 10:50 AM | | | | | PST | | + + + + + | Respiratory Rate | 20 | 04/28/2017 10:50 AM | | | | | PST | | + + + + + | Oxygen Saturation | 94% | 04/28/2017 10:50 AM | | | | | PST | | + + + + + | Inhaled Oxygen | - | - | | | Concentration | | | | + + + + + | Weight | - | - | | + + + + + | Height | - | - | | + + + + + | Body Mass Index | - | - | | + + + + + documented in this encounter Discharge Instructions Instructions Joana Damon RN - 04/28/2017See the discharge instructions sheets for star ting the eye drops when to stop take the kit with you call if concerns. documented in this encounter Medications at Time of Discharge + + + +---------+ + + | Medication | Sig | Dispensed | Refills | Start | End Date | | | | | | Date | | + + + +---------+ + + | albuterol 90 | Inhale 2 puffs into | 1 | 1 | 04/22/19 | | | mcg/puff | the lungs every 4 | Inhaler | | 18 | 8 | | inhalerIndications: | hours as needed for | | | | | | Respiratory crackles | Wheezing or | | | | | | at right lung base | Shortness of Breath. | | | | | + [...] +---------+ + + | atorvaSTATin | Take 10 mg by mouth | | 0 | | | | (LIPITOR) 10 mg | nightly. | | | | 8 | | tablet | | | | | | + + + +---------+ + + | Cyanocobalamin | Take by mouth. | | 0 | | | | (VITAMIN B-12) 1000 | | | | | 8 | | MCG/15ML LIQD | | | | | | + + + +---------+ + + | fluticasone | 2 sprays by Nasal | 16 g | 4 | 04/22/19 | | | (FLONASE) 50 | route Daily. | | | 18 | 8 | | mcg/nasal | | | | | | | sprayIndications: | | | | | | | Dysfunction of both | | | | | | | eustachian tubes | | | | | | + + + +---------+ + + | gabapentin | Take 600 mg by mouth | | 0 | | | | (NEURONTIN) 300 mg | 3 times daily. | | | | 8 | | capsule | | | | | | + + + +---------+ + + | guaiFENesin | Take 2 tablets by | 28 | 0 | 04/22/19 | | | (MUCINEX) 600 mg 12 | mouth 2 times daily. | tablet | | 18 | 8 | | hr | | | | | | | tabletIndications: | | | | | | | Respiratory crackles | | | | | | | at right lung base | | | | | | + + + +---------+ + + | | Take 25 mg by mouth | | 0 | | | | hydroCHLOROthiazide | Daily. | | | | 8 | | 25 mg tablet | | | | | | + + + +---------+ + + | insulin aspart | Inject 10 Units | 10 mL | 3 | 04/11/19 | | | (NOVOLOG) 100 | under the skin 3 | | | 18 | 8 | | units/mL injection | times daily (before | | | | | | | meals). Take 10 | | | | | | | units prior to each | | | | | | | meal and follow | | | | | | | sliding scale of | | | | | | | blood sugar between | | | | | | | 151-200 = 4 units; | | | | | | | 201-250=8 units; | | | | | | | 251-300=10 units; | | | | | | | 301-350= 12 units; | | | | | | | 351-400= 14 units; | | | | | | | 401-450= 16 units. | | | | | + + + +---------+ + + | insulin glargine | Inject 35 Units | 10 mL | 3 | 04/11/19 | | | (LANTUS) 100 | under the skin | | | 18 | 8 | | units/mL injection | nightly. | [...] oxyCODONE | Take 1 tablet by | 56 | 0 | 04/22/19 | | | (ROXICODONE) 5 mg | mouth Twice daily | tablet | | 18 | 8 | | tabletIndications: | as needed for Pain. | | | | | | Multilevel [...] + + + +---------+ + + | pseudoePHEDrine | Take 120 mg by mouth | | 0 | | | | (SUDAFED) 120 mg 12 | every 12 hours. | | | | 8 | | hr tablet | | | | | | + + + +---------+ + + | sertraline | Take 50 mg by mouth | | 0 | | | | (ZOLOFT) 50 mg | Daily. | | | | [...] +---------+ + + | traZODone | Take 50 mg by mouth | [...] [place] | | | | | | [address] | | | | | | [phone] | | | | | | | | +--------+---------+ + + + | 02/26/ | Office | Urology | Lillie Fowler | | | 2018 | Visit | | LILLIE Lopez [address] | | | | | | [address] | | | | | | [place], [place] | | | | | | [address] | | | | | | [phone] | | | | | | | | +--------+---------+ + + + | 03/16/ | Office | Neurology | Theresa, | | | 2018 | Visit | | [address]DA [address] | | | | | [address] [place], | | | | | | [place] [address] | | | | | | [phone] | | | | | | | | +--------+---------+ + + + | 04/12/ | Office | Primary Care | Massimo Ramos Pedro Luis | | | 2019 | Visit | | MD Fer [address] | | | | | | [address] [place] | | | | | | [address] | | | | | | | | +--------+---------+ + + + | 10/03/ | Office | Neurology | Fabián Carias MD | | | 2019 | Visit | | [address] | | | | | | [place] | | | | | | [address] | | | | | | | [...] | | | care | | | Textbook Associate-C | | | | | | | [...] | | | care | | | Textbook Associate-C | | | | | | | [...] | | | care | | | Textbook Associate-C | | | | | | | [...] | | | care | | | Textbook Associate-C | | | | | | | [...] | + +--------+ + + + | CATARACT REMOVAL | | 04/28/2017 | cataract | | | | | 9:24 AM | | | | | | PST | | | + +--------+ + + + | POC GLUCOSE | Routin | 04/28/2017 | | Results for this | | | e | 8:28 AM | | procedure are in the | | | | PST | | results section. | + +--------+ + + + documented in this encounter Results POC Glucose (04/28/2017 8:28 AM PST) + +-------+ + + + | Component | Value | Ref Range | Performed | Pathologist | | | | | At | Signature | + +-------+ + + + | Glucose, | 76 | 70 - 110 mg/dL | [facility] | | | | | [facility] | | + +-------+ + + + + + | Specimen | + + | Blood | + + + + + + + | Performing | Address | City/State/Zipcode | Phone Number | | Organization | | | | + + + + + | [facility] | [address] | [place] [address] | [phone] | | [facility] | | | | + + + + + documented in this encounter Visit Diagnoses Not on filedocumented in this encounter Administered Medications + +--------+ +--------+------+------+ | Medication Order | MAR | Action | Dose | Rate | Site | | | Action | Date | | | | + +--------+ +--------+------+------+ | cyclopentolate (CYCLOGYL) 1% | Given | 04/28/19 | 1 drop | | | | ophthalmic solution 1 drop 1 | | 18 8:48 | | | | | drop, Right Eye, EVERY 5 MIN PRN, | | AM PST | | | | | prep eye for procedure, Starting | | | | | | | 04/28/17 at 0756, For 3 | | | | | | | doses, Pre-op | | | | | | + +--------+ +--------+------+------+ +-------+ +--------+---+---+ | Given | 04/28/19 | 1 drop | | | | | 18 8:30 | | | | | | AM PST | | | | +-------+ +--------+---+---+ +---+---+ | | | +---+---+ + +-------+ +--------+---+---+ | ketorolac (ACULAR) 0.5% | Given | 04/28/19 | 1 drop | | | | ophthalmic solution 1 drop 1 | | 18 8:46 | | | | | drop, Right Eye, EVERY 5 MIN, | | AM PST | | | | | First dose on 04/28/17 at | | | | | | | 0815, For 3 doses, Ketorolac 0.4% | | | | | | | or 0.5%, Pre-op | | | | | | + +-------+ +--------+---+---+ +-------+ +--------+---+---+ | Given | 04/28/19 | 1 drop | | | | | 18 8:30 | | | | | | AM PST | | | | +-------+ +--------+---+---+ | Given | 04/28/19 | 1 drop | | | | | 18 8:15 | | | | | | AM PST | | | | +-------+ +--------+---+---+ +---+---+ | | | +---+---+ + +---------+ +--------+ +---+ | lactated ringers (LR) infusion | New Bag | 04/28/19 | 1,000 | 10 mL/hr | | | at 10-100 mL/hr, Intravenous, | | 18 8:39 | mLs | | | | CONTINUOUS, Starting 04/28/17 | | AM PST | | | | | at 0815, After starting IV in | | | | | | | left arm if possible, Pre-op | | | | | | + +---------+ +--------+ +---+ +---+---+ | | | +---+---+ + +-------+ +--------+---+---+ | ofloxacin (OCUFLOX) 0.3% | Given | 04/28/19 | 1 drop | | | | ophthalmic solution 1 drop 1 | | 18 8:44 | | | | | drop, Right Eye, Prior to | | AM PST | | | | | Incision, Starting 04/28/17 at | | | | | | | 0756, For 3 doses, Into the | | | | | | | operative eye, every 5 Minutes | | | | | | | prior to surgery, Pre-op | | | | | | + +-------+ +--------+---+---+ +-------+ +--------+---+---+ | Given | 04/28/19 | 1 drop | | | | | 18 8:30 | | | | | | AM PST | | | | +-------+ +--------+---+---+ | Given | 04/28/19 | 1 drop | | | | | 18 8:15 | | | | | | AM PST | | | | +-------+ +--------+---+---+ +---+---+ | | | +---+---+ + +-------+ +--------+---+---+ | phenylephrine (JAMES-SYNEPHRINE) | Given | 04/28/19 | 1 drop | | | | 2.5% ophthalmic solution 1 drop | | 18 8:48 | | | | | 1 drop, Right Eye, EVERY 5 MIN | | AM PST | | | | | PRN, prep eye for procedure, | | | | | | | Starting 04/28/17 at 0756, For | | | | | | | 3 doses, Pre-op | | | | | | + +-------+ +--------+---+---+ +-------+ +--------+---+---+ | Given | 04/28/19 | 1 drop | | | | | 18 8:30 | | | | | | AM PST | | | | +-------+ +--------+---+---+ | Given | 04/28/19 | 1 drop | | | | | 18 8:15 | | | | | | AM PST | | | | +-------+ +--------+---+---+ +---+---+ | | | +---+---+ + +-------+ +--------+---+---+ | prednisoLONE (PRED FORTE) 1% | Given | 04/28/19 | 1 drop | | | | ophthalmic suspension 1 drop 1 | | 18 8:30 | | | | | drop, Right Eye, EVERY 5 MIN PRN, | | AM PST | | | | | prep eye for procedure, Starting | | | | | | | 04/28/17 at 0756, For 3 | | | | | | | doses, Shake well. If this | | | | | | | medication is not available, | | | | | | | please use DEXAMETHASONE 0.01% | | | | | | | with same instructions, Pre-op | | | | | | + +-------+ +--------+---+---+ +-------+ +--------+---+---+ | Given | 04/28/19 | 1 drop | | | | | 18 8:15 | | | | | | AM PST | | | | +-------+ +--------+---+---+ +---+---+ | | | +---+---+ + +-------+ +--------+---+ + | proparacaine (ALCAINE) 0.5% | Given | 04/28/19 | 1 drop | | Eye-Righ | | ophthalmic solution 1 drop 1 | | 18 9:22 | | | t | | drop, Right Eye, EVERY 5 MIN PRN, | | AM PST | | | | | prep eye for procedure, Starting | | | | | | | 04/28/17 at 0756, For 3 | | | | | | | doses, Pre-op | | | | | | + +-------+ +--------+---+ + +-------+ +--------+---+---+ | Given | 04/28/19 | 1 drop | | | | | 18 8:30 | | | | | | AM PST | | | | +-------+ +--------+---+---+ | Given | 04/28/19 | 1 drop | | | | | 18 8:15 | | | | | | AM PST | | | | +-------+ +--------+---+---+ +---+---+ | | | +---+---+ + +-------+ +--------+---+---+ | tropicamide (MYDRIACYL) 1% | Given | 04/28/19 | 1 drop | | | | ophthalmic solution 1 drop 1 | | 18 8:47 | | | | | drop, Right Eye, EVERY 5 MIN PRN, | | AM PST | | | | | prep eye for procedure, Starting | | | | | | | 04/28/17 at 0756, For 3 | | | | | | | doses, Pre-op | | | | | | + +-------+ +--------+---+---+ +-------+ +--------+---+---+ | Given | 04/28/19 | 1 drop | | | | | 18 8:30 | | | | | | AM PST | | | | +-------+ +--------+---+---+ | Given | 04/28/19 | 1 drop | | | | | 18 8:15 | | | | | | AM PST | | | | +-------+ +--------+---+---+ +---+---+ | | | +---+---+ documented in this encounter"
--- OUTSIDE RECORDS SUMMARY | ~2019-02-17 | XMS | Encounter Summary ---
Demographics + + + | Address | [address] | | | [place] [address] | + + + | Home Phone | | + + + | Preferred Language | Unknown | + + + | Marital Status | | + + + | Buddhism Affiliation | 1025 | + + + | Race | Unknown | + + + | Ethnic Group | Unknown | + + + Author + + + | Author | [facility] | | | and [place] | + + + | Organization | [facility] | | [...] Team Providers + +------+ + | Care Supervisor Aircraft Maintenance Name | Role | Phone | + +------+ + | Horacio Silvestre DO | PCP | | + +------+ + Reason for Visit + + + | Reason | Comments | + + + | Patient Concerns | | + + + Encounter Details +--------+ + + + + | Date | Type | Department | Care Team | Description | +--------+ + + + + | 11/02/ | Telephone | [facility] | Fabián Carias MD | Patient Concerns | | 2019 | | [facility]OSP[facility] | [address] | | | | | CLINIC [address] | [place] | | | | | [address] [place], | [address] | | | | | [place] [address] | | | | | | [phone] | | | +--------+ + + + [...] 02/25/ | Office | General Surgery | Yennifer Scott | | | 2018 | Visit | | DO Jalen [address] | | | | | | [address] | | | | | | [place], [place] | | | | | | [address] | | | | | | [phone] | | | | | | | | +--------+---------+ + + + | 02/26/ | Office | Urology | Lillie Fowler | | | 2018 | Visit | | LILLIE Lopez [address] | | | | | | [address] | | | | | | [place], [place] | | | | | | [address] | | | | | | [phone] | | | | | | | | +--------+---------+ + + + | 03/16/ | Office | Neurology | Theresa, | | | 2018 | Visit | | [address] | | [address] [place], | | | | | | [place] [address] | | | | | | [phone] | | | | | | | | +--------+---------+ + + + | 04/12/ | Office | Primary Care | Massimo Ramos Pedro Luis | | | 2019 | Visit | | MD Fer [address] | | | | | | [address] [place] | | | | | | [address] | | | | | | | | +--------+---------+ + + + | 10/03/ | Office | Neurology | Fabián Carias MD | | | 2019 | Visit | | [address] | | | | | | [place] | | | | | | [address] | | | | | | | [...] | | | care | | | Virtual Customer Assistant-C | | | | | | [...] | | | care | | | Virtual Customer Assistant-C | | | | | | [...] | | | care | | | Virtual Customer Assistant-C | | | | | | | gelyical | + +--------+ +---+-----+ + + + [...] | | | care | | | Virtual Customer Assistant-C | | | | | | | linical | + +--------+ +---+-----+ + + + | Note: Pt will | | check CBG's daily x1 | | Pt will take Lantis as | | prescribed | + + documented as of this encounter Visit Diagnoses + + | Diagnosis | + + | 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
--- OUTSIDE RECORDS SUMMARY | ~2019-02-17 | XMS | Encounter Summary ---
Demographics + + + | Address | [address] | | | [place] [address] | + + + | Home Phone | | + + + | Preferred Language | Unknown | + + + | Marital Status | | + + + | Evangelical Affiliation | 1025 | + + + | Race | Unknown | + + + | Ethnic Group | Unknown | + + + Author + + + | Author | [facility] | | | and [place] | + + + | Organization | [facility] | | [...] Providers + +------+ + | Care Manager Of Global Name | Role | Phone | + +------+ + | Horacio Silvestre DO | PCP | | + +------+ + Reason for Visit + + + | Reason | Comments | + + + | Back Pain | Trigger point-lower back | + + + Evaluate & Treat (Routine) +--------+ + + + + + | Status | Reason | Specialty | Diagnoses / | Referred By | Referred To | | | | | Procedures | Contact | Contact | +--------+ + + + + + | Closed | Specialty | Neurology | Diagnoses | Carias, | Carias, | | | Services | | Chronic low | Fabián Panda, | Fabián Panda MD | | | Required | | back pain | MD [address] | | | | | without | [address], | [address] | | | | | sciatica, | [address] | [place], [place] | | | | | unspecified | [place], [place] | [address] Phone: | | | | | back pain | [address] | [phone] | | | | | laterality | Phone: | Fax: | | | | | Other | [phone] | [phone] | | | | | amnesia | Fax: | | | | | | Procedures | [phone] | | | | | | VT INJECT | | | | | | | TRIGGER | | | | | | | POINT, 1 [place] | | | | | | | 2 MUSCLE(S) | | | | | | | Trigger | | | | | | | point | | | +--------+ + + + + + Encounter Details +--------+ + + + + | Date | Type | Department | Care Team | Description | +--------+ + + + + | 02/19/ | Procedure | [facility] | Fabián Carias MD | Chronic low back | | 2018 | visit | HOSPITAL NEUROLOGY | [address] | pain without | | | | CLINIC [address] | [place] | sciatica, | | | | [address] [place], | [address] | unspecified back | | | | [place] [address] | | pain laterality | | | | [phone] | | (Primary Dx); Sprain | | | | | | of ligaments of | | | | | | lumbar spine, | | | | | | sequela; Chronic | | | | | | bilateral low back | | | | | | pain without | | | | | | sciatica | +--------+ + + + + Social [...] + + + | Blood Pressure | 138/72 | 02/19/2018 9:07 AM | | | | | PST | | + + + + + | Pulse | 85 | 02/19/2018 9:07 AM | | | | | PST | | + + + + + | Temperature | - | - | | + + + + + | Respiratory Rate | 20 | 02/19/2018 9:07 AM | | | | | PST | | + + + + + | Oxygen Saturation | 90% | 02/19/2018 9:07 AM | | | | | PST | | + + + + + | Inhaled Oxygen | - | - | | | Concentration | | | | + + + + + | Weight | 93.4 kg (206 lb) | 02/19/2018 9:07 AM | | | | | PST | | + + + + + | Height | 165.1 cm (5' 5") | 02/19/2018 9:07 AM | | | | | PST | | + + + + + | Body Mass Index | 34.28 | 02/19/2018 9:07 AM | | | | | PST [...] documented as of this encounter Progress Notes Cara Campbell RN - 02/19/2018 9:45 AM PSTTrigger Point trigger point- lower back. Pt. york d no complaints after trigger point, BP 138/80 Pulse 71. Pt. given instructions verbally and written, pt stated understanding. Pt ambulated to lobby without difficulty or assistance. Electronically signed by: Cara Campbell RN 02/19/2018 10:41 ara Campbell RN - 1 04/21/2017 9:45 AM PSTToradol injection given 60 mg IM, no adverse reactions noted, per pt h as not had medication before, stayed allotted time and handout given to pt and discussed. Electronically signed by: Cara Campbell RN 02/19/2018 10:02 documented in this encounter Plan of Treatment [...] [place] | | | | | | [address] | | | | | | [phone] | | | | | | | | +--------+---------+ + + + | 02/26/ | Office | Urology | Lillie Fowler | | | 2018 | Visit | | LILLIE Lopez [address] | | | | | [address] | | | | | | [place] | | | | | | [address] | | | | | | [phone] | | | | | | | | +--------+---------+ + + + | 03/16/ | Office | Neurology | Theresa, | | | 2018 | Visit | | [address] | | [address] [place], | | | | | | [place] [address] | | | | | | [phone] | | | | | | | | +--------+---------+ + + + | 04/12/ | Office | Primary Care | Massimo Ramos | | | 2019 | Visit | | MD Fer [address] | | | | | | [place] | | | | | | [address] | | | | | | | | +--------+---------+ + + + | 10/03/ | Office | Neurology | Fabián Carias MD | | | 2019 | Visit | | [address] | | | | | | [place] | | | | | | [address] | | | | | | | [...] | | | care | | | Vamp Wetter-C | | | | | | | [...] | | | care | | | Vamp Wetter-C | | | | | | | [...] | | | care | | | Vamp Wetter-C | | | | | | | [...] | | | care | | | Vamp Wetter-C | | | | | | | [...] | + +--------+ + + + | VT INJECT TRIGGER | Routin | 02/19/2018 | Sprain of | Results for this | | POINT, 1 OR 2 | e | 9:45 AM | ligaments of lumbar | procedure are in the | | MUSCLE(S) | | PST | spine, sequela | results section. | | | | | Chronic low back | | | | | | pain without | | | | | | sciatica, | | | | | | unspecified back | | | | | | pain laterality | | + +--------+ + + + documented in this encounter Visit Diagnoses + + | Diagnosis | + + | Chronic low back pain without sciatica, unspecified back pain laterality - Primary | + + | Sprain of ligaments of lumbar spine, sequela | + + documented in this encounter Administered Medications + +--------+ +--------+------+------+ | Medication Order | MAR | Action | Dose | Rate | Site | | | Action | Date | | | | + +--------+ +--------+------+------+ | bupivacaine (PF) (MARCAINE) | Given | 02/20/20 | 10 mLs | | | | 0.5% injection 10 mL 10 mL, | | 18 10:21 | | | | | Other, ONCE, [facility] 02/19/18 at | | AM PST | | | | | 1045, For 1 dose | | | | | | + +--------+ +--------+------+------+ +---+---+ | | | +---+---+ + +-------+ +-------+---+ + | ketorolac (TORADOL) injection | Given | 02/20/20 | 60 mg | | Ventrogl | | 60 mg 60 mg, Intramuscular, | | 18 10:01 | | | uteal-Ri | | ONCE, [facility] 02/19/18 at 1015, For 1 | | AM PST | | | ght | | dose | | | | | | + +-------+ +-------+---+ + +---+---+ | | | +---+---+ + +-------+ +--------+---+---+ | lidocaine (PF) 1% injection 20 | Given | 02/20/20 | 20 mLs | | | | mL 20 mL, Other, ONCE, [facility] | | 18 10:21 | | | | | 02/19/18 at 1045, For 1 dose | | AM PST | | | | + +-------+ +--------+---+---+ +---+---+ | | | +---+---+ + +-------+ +--------+---+ + | methylPREDNISolone acetate | Given | 02/20/20 | 400 mg | | Other | | (DEPO-MEDROL) 40 mg/mL injection | | 18 10:22 | | | (Comment | | 400 mg 400 mg, Intramuscular, | | AM PST | | | ) | | ONCE, [facility] 02/19/18 at 1045, For 1 | | | | | | | dose, Not for IV use., | | | | | | + +-------+ +--------+---+ + +---+---+ | | | +---+---+ documented in this encounter
--- OUTSIDE RECORDS SUMMARY | ~2019-02-17 | XMS | Encounter Summary ---
Demographics + + + | Address | [address] | | | [place] [address] | + + + | Home Phone | | + + + | Preferred Language | Unknown | + + + | Marital Status | | + + + | Congregation Affiliation | 1025 | + + + | Race | Unknown | + + + | Ethnic Group | Unknown | + + + Author + + + | Author | [facility] | | | and [place] | + + + | Organization | [facility] | | | [...] Team Providers + +------+ + | Care Study Lead Name | Role | Phone | + +------+ + | Horacio Silvestre DO | PCP | | + +------+ + Reason for Visit + + + | Reason | Comments | + + + | ED Follow-up | TIA and pnuemonia | + + + Encounter Details +--------+---------+ + + + | Date | Type | Department | Care Team | Description | +--------+---------+ + + + | 11/12/ | Office | [facility] | Lizbeth Reddy NP | Multilevel | | 2019 | Visit | [facility] | [address] | degenerative disc | | | | [facility] | [facility], [place] | disease (Primary | | | | [address] [place], | [address] | Dx); Type 2 diabetes | | | | [place] [address] | [phone] | mellitus with | | | | [phone] | | diabetic | | | | | | polyneuropathy, with | | | | | | long-term current | | | | | | use of insulin | | | | | | (HCC); TIA | | | | | | (transient ischemic | | | | | | attack) | +--------+---------+ + + + Social History [...] + + + | Blood Pressure | 122/83 | 11/12/2018 9:58 AM | left arm | | | | PDT | | + + + + + | Pulse | 79 | 11/12/2018 9:58 AM | reg | | | | PDT | | + + + + + | Temperature | - | - | | + + + + + | Respiratory Rate | 16 | 11/12/2018 9:58 AM | | | | | PDT | | + + + + + | Oxygen Saturation | 91% | 11/12/2018 9:58 AM | ra | | | | PDT | | + + + + + | Inhaled Oxygen | - | - | | | Concentration | | | | + + + + + | Weight | 90.7 kg (200 lb) | 11/12/2018 9:58 AM | | | | | PDT | | + + + + + | Height | 167.6 cm (5' 6") | 11/12/2018 9:58 AM | | | | | PDT | | + + + + + | Body Mass Index | 32.28 | 11/12/2018 9:58 AM | | | | | PDT [...] documented as of this encounter Progress Notes Lizbeth Reddy NP - 11/12/2018 10:00 AM PDTFormatting of this note might be different from th e fabricio. Patient ID: Geraldo Mcfadden is a 78 y.o. year old male Chief Complaint Patient presents with ED Follow-up TIA and pnuemonia Assessment and Plan: Chronic lumbar back pain. -[facility] - Continue home PT. DM2 with hyperglycemia. -Continue Lantus as prescribed. -Continue to monitor home BG. H/O CVA, right parietal lobe. -Continue aspirin and Plavix. -Continue dipyridamole. -Continue home health. Emphysema. -Currently declines use of oxygen due to reports of ineffectiveness. -Reviewed oxygen saturation goal of 92-93%. -Discussed home SpO2 monitor, will send order and if not covered, encourage to purchase OTC . F/U: 11/22/[address] Carias. Subjective: Ed Mcfadden is an 78 year old male patient presenting for a hospital admission follow-up. Nabila avitia was admitted on 11/02/18 under the care of Dr. Carias, neurology, due to right parietal lob e CVA. Patient was continued on aspirin 325 mg and Plavix 75 mg daily and dipyridamole 25mg BID was added and atorvastatin was increased to 40 mg daily for stroke prophylaxis. He recei ronaldo PT/OT services for gait training. Patient was discharged to home with home health. Tofreya saldivar, patient reports he is feeling well overall. He is having no cough or no SOB. He is not utilizing his oxygen because he does not feel it is beneficial. He has chronic low back wali n. He has used Percocet in the past. His states another provider took him off the Perc ocet because it was harmful. His reports their son was previously organizing [employer] but he has moved out of the home. Home health will help with medication organizatio n as the feels overwhelmed with this task as she has her own medications to organize. Report checking home BG weekly, last reading was 130. 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, 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 Class 1 obesity with alveolar hypoventilation, serious comorbidity, and body mass index (BMI) of 33.0 to 33.9 in adult Benign prostatic hyperplasia with incomplete bladder emptying Acquired diverticulosis of colon Chronic nonseasonal allergic rhinitis 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 pollen 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 of 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, left Current use of beta marly Panlobular emphysema Atherosclerosis of [place] coronary artery of [place] heart without angina pectoris On potassium wasting diuretic therapy Primary osteoarthritis involving multiple joints Vitamin D deficiency disease History of bacterial pneumonia Insomnia secondary to chronic pain Hx of transient ischemic attack (TIA) Coordination of complex care 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 behavioral disturbance Neurologic gait disorder Mediastinal lymphadenopathy TIA (transient ischemic attack) Weakness of both lower extremities Allergies Allergen Reactions Ambien [Zolpidem] Anaphylaxis Social History Socioeconomic History Marital status: Spouse name: Not on file Number of children: Not on file Years of education: Not on file Highest education level: Not on file Social Needs Financial resource strain: Not on file Food insecurity - worry: Not on file Food insecurity - inability: Not on file Transportation needs - medical: Not on file Transportation needs - non-medical: Not on file Occupational History Not on file Tobacco Use Smoking status: Former Smoker Packs/day: 3.00 Years: 15.00 Pack years: 45.00 Types: Cigarettes Last attempt to quit: 1975 Years since quittin.6 Smokeless tobacco: Never Used Substance and Sexual Activity Alcohol use: No Drug use: No Sexual activity: Not Currently Other Topics Concern Not on file Social History Narrative Not on file Current Outpatient Medications Medication Sig Dispense Refill albuterol 2.5 mg/3 mL nebulizer solution Take 3 mLs by nebulization every 4 hours as ne eded for Shortness of Breath. 360 vial 0 albuterol-ipratropium 2.5-0.5 mg/3 mL SOLN Take 3 mLs by nebulization every 6 hours. 36 0 mL 0 amLODIPine (NORVASC) 10 MG tablet Take 10 mg by mouth every morning. aspirin 325 mg tablet Take 325 mg by mouth every morning. atorvaSTATin (LIPITOR) 40 mg tablet Take 1 tablet by mouth Daily for 30 days. 30 tablet 3 cholecalciferol (VITAMIN D-3) 1000 units TABS Take 2,000 Units by mouth every morning. clopidogrel (PLAVIX) 75 mg tablet Take 75 mg by mouth every morning. cyanocobalamin (VITAMIN B-12) 1000 MCG tablet Take 1,000 mcg by mouth every morning. dipyridamole (PERSANTINE) 25 mg tablet Take 1 tablet by mouth 3 times daily for 30 days . 90 tablet 3 DULoxetine (CYMBALTA) [address] capsule Take 60 mg by mouth every morning. insulin aspart (NOVOLOG) 100 units/mL injection Inject 15 Units under the skin every mo rning. insulin glargine (LANTUS) 100 units/mL injection (vial) Inject 35 Units under the skin nightly. levothyroxine (SYNTHROID) 100 mcg tablet Take 2.5 tablets by mouth every morning (befor e breakfast) for 90 days. 75 tablet 2 losartan (COZAAR) 50 mg tablet Take 50 mg by mouth every morning. pantoprazole (PROTONIX) 20 mg tablet Take 20 mg by mouth every morning (before breakfas t). pregabalin (LYRICA) 300 MG capsule Take 300 mg by mouth 2 times daily. tamsulosin (FLOMAX) 0.4 mg CAPS Take 0.4 mg by mouth nightly. testosterone (ANDRODERM) 2 mg/[address] 1 patch onto the skin nightly. traMADol (ULTRAM) 50 mg tablet Take 1 tablet by mouth every 8 hours as needed. 30 table t 0 traZODone (DESYREL) 100 mg tablet Take 100 mg by mouth nightly. No current facility-administered medications for this visit. Review of Systems Constitutional: Negative for fatigue, fever and unexpected weight change. HENT: Negative for congestion. Respiratory: Negative for cough and shortness of breath. Cardiovascular: Negative for leg swelling. Musculoskeletal: Positive for back pain and gait problem (chronic, uses cane). Neurological: Negative for dizziness and light-headedness. Psychiatric/Behavioral: Negative for sleep disturbance. Objective: Vitals: BP 122/83 Comment: left arm | Pulse 79 Comment: reg | Resp 16 | Ht 1.676 m (5' 6") | Wt 9 0.7 kg (200 lb) | SpO2 91% Comment: ra | BMI 32.28 kg/m Physical Exam Constitutional: He is oriented to person, place, and time. He appears well-developed and we ll-nourished. No distress. Cardiovascular: Normal rate and regular rhythm. Pulmonary/Chest: Effort normal and breath sounds normal. No respiratory distress. Musculoskeletal: Gait slow but steady, uses cane. Neurological: He is alert and oriented to person, place, and time. Skin: Skin is warm and dry. Psychiatric: He has a normal mood and affect. His behavior is normal. Judgment and thought content normal. Electronically signed by: Lizbeth Reddy NP 11/12/2018 10:46 documented in this encounter Plan of Treatment [...] [place] | | | | | | [address] | | | | | | [phone] | | | | | | | | +--------+---------+ + + + | 02/26/ | Office | Urology | Lillie Fowler | | 2018 | Visit | | LILLIE Lopez [address] | | | | | | [address] | | | | | | [place] | | | | | | [address] | | | | | | [phone] | | | | | | | | +--------+---------+ + + + | 03/16/ | Office | Neurology | Theresa, | | | 2018 | Visit | | SHONDA [address] | | | | | [address] [place], | | | | | | [place] [address] | | | | | | [phone] | | | | | | | | +--------+---------+ + + + | 04/12/ | Office | Primary Care | Massimo Ramos | | | 2019 | Visit | | MD Fer [address] | | | | | | [address] [place] | | | | | | [address] | | | | | | | | +--------+---------+ + + + | 10/03/ | Office | Neurology | Fabián Carias MD | | | 2019 | Visit | | [address] | | | | | | [place] | | | | | | [address] | | | | | | | [...] | | | care | | | Brass Pickler-C | | | | | | | [...] | | | care | | | Brass Pickler-C | | | | | | | [...] | | | care | | | Brass Pickler-C | | | | | | | [...] | | | care | | | Brass Pickler-C | | | | | | | linical | + +--------+ +---+-----+ + + + | Note: Pt will | | check CBG's daily x1 | | Pt will take Lantis as | | prescribed | + + documented as of this encounter Visit Diagnoses + + | Diagnosis | + + | Multilevel degenerative disc disease - Primary Degeneration of intervertebral disc, | | site unspecified | + + | Type 2 diabetes mellitus with diabetic polyneuropathy, 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) | + + | TIA (transient ischemic attack) Unspecified transient cerebral ischemia | + + documented in this encounter Additional Health Concerns + + + + | Infection | Noted Time | Resolved Time | + + + + | Methicillin-resistant Staphylococcus aureus | 07/20/2018 4:00 PM | | | | PDT | | + + + + documented as of this encounter
--- OUTSIDE RECORDS SUMMARY | ~2019-02-17 | XMS | Encounter Summary ---
Demographics + + + | Address | [address] | | | [place] [address] | + + + | Home Phone | | + + + | Preferred Language | Unknown | + + + | Marital Status | | + + + | Mu-Ism Affiliation | 1025 | + + + | Race | Unknown | + + + | Ethnic Group | Unknown | + + + Author + + + | Author | [facility] | | | and [place] | + + + | Organization | [facility] | | [...] Team Providers + +------+ + | Care Shank Archer Name | Role | Phone | + +------+ + | Ryan Gutiérrez MD | PCP | | + +------+ + Encounter Details +--------+ + + + + | Date | Type | Department | Care Team | Description | +--------+ + + + + | 07/29/ | Hospital | [facility] | Horacio Silvestre, | | | 2017 | Encounter | [facility] | DO [address] | | | | | [address] [place] | [place], [place] | | | | | [place], [place] | [address] | | | | | [address] | [phone] | | | | | [phone] | | | +--------+ + + + [...] [place] | | | | | | [address] | | | | | | [phone] | | | | | | | | +--------+---------+ + + + | 02/26/ | Office | Urology | Lillie Fowler | | | 2018 | Visit | | LILLIE Lopez [address] | | | | | | [address] | | | | | | [place] | | | | | | [address] | | | | | | [phone] | | | | | | | | +--------+---------+ + + + | 03/16/ | Office | Neurology | Theresa, | | | 2018 | Visit | | [address] | | | [address] [place], | | | | | | [place] [address] | | | | | | [phone] | | | | | | | | +--------+---------+ + + + | 04/12/ | Office | Primary Care | Massimo Ramos | | | 2019 | Visit | | MD Fer [address] | | | | | | [address] [place] | | | | | | [address] | | | | | | | | +--------+---------+ + + + | 10/03/ | Office | Neurology | Fabián Carias MD | | | 2019 | Visit | | [address] | | | | | | [place] | | | | | | [address] | | | | | | | [...] | | | care | | | Encapsulator-C | | | | | | | [...] | | | care | | | Encapsulator-C | | | | | | | [...] | | | care | | | Encapsulator-C | | | | | | | [...] | | | care | | | Encapsulator-C | | | | | | | [...] | + +--------+ + + + | PSA, DIAGNOSTIC | Routin | 07/29/2016 | | Results for this | | | e | 10:16 AM | | procedure are in the | | | | PDT | | results section. | + +--------+ + + + documented in this encounter Results PSA, Diagnostic (07/29/2016 10:16 AM PDT) + +-------+ + + + | Component | Value | Ref Range | Performed | Pathologist | | | | | At | Signature | + +-------+ + + + | PSA, Total | 0.83 | <=4.000 ng/mL | EXTERNAL | | | | [...]
--- OUTSIDE RECORDS SUMMARY | ~2019-02-17 | XMS | Encounter Summary ---
Demographics + + + | Address | [address] | | | [place] [address] | + + + | Home Phone | | + + + | Preferred Language | Unknown | + + + | Marital Status | | + + + | Temple Affiliation | 1025 | + + + | Race | Unknown | + + + | Ethnic Group | Unknown | + + + Author + + + | Author | [facility] | | | and [place] | + + + | Organization | [facility] | | | [...] Team Providers + +------+ + | Care Auto Top Mechanic Name | Role | Phone | + +------+ + | Horacio Silvestre DO | PCP | | + +------+ + Reason for Visit Evaluate (Routine) +--------+--------+ + + + + | Status | Reason | Specialty | Diagnoses / | Referred By | Referred To | | | | | Procedures | Contact | Contact | +--------+--------+ + + + + | Closed | | Radiology | Diagnoses | Carias, | Cc Wgr | | | | | I changed | Fabián R, | Ultrasound | | | | | order to | MD [address] | [address] | | | | | STAT so it | [address], | [place], | | | | | is read by | [place] | [place] [address] | | | | | his 2pm appt | [place], [place] | Phone: | | | | | with | [address] | [phone] | | | | | neurology. | Phone: | Fax: | | | | | tkm 07/20/18 | [phone] | [phone] | | | | | [facility] Auth#: | Fax: | | | | | | [id number] | [phone] | | | | | | Valid Dates: | | | | | | | 06/11/18 - | | | | | | | 12/08/18 | | | | | | | Procedures | | | | | | | [facility] | | | | | | | CAROTID | | | +--------+--------+ + + + + Encounter Details +--------+ + + + + | Date | Type | Department | Care Team | Description | +--------+ + + + + | 07/21/ | Hospital | [facility] | Fabián Craias MD | Syncope, unspecified | | 2019 | Encounter | Hospital Ultrasound | [address] | syncope type | | | | [address] [place] | [place], [place] | | | | | [place], [place] | [address] | | | | | [address] | | | | | | [phone] | | | +--------+ + + + [...] do you have serious | No | 07/17/2018 | | difficulty hearing? | | | + + + + | Are you blind or do you have serious | No | 07/17/2018 | | difficulty seeing, even when wearing | | | | glasses? | | | + + + + | Do you have serious difficulty walking or | No | 07/17/2018 | | climbing stairs? (5 years old or older) | | | + + + + | Do you have difficulty dressing or bathing? | No | 07/17/2018 | | (5 years old or older) | | | + + + + | Because of a physical, mental, or emotional | No | 07/17/2018 | | condition, do you have difficulty [...] physical, mental, or emotional | No | 07/17/2018 | | condition, do you have serious [...] tablet by | 90 | 3 | 06/25/19 | | | (LIPITOR) 10 mg | mouth every morning. | tablet | | 19 | 9 | | tablet | | | | | | + + + +---------+ + + | cholecalciferol | Take 2,000 Units by | | 0 | | | | (VITAMIN D-3) 1000 | mouth every morning. | | | | 9 | | units TABS | | | | | | + + + +---------+ + + | clindamycin | Take 1 capsule by | 20 | 0 | 07/18/19 | | | (CLEOCIN) 300 MG | mouth 4 times daily | capsule | | 19 | 9 | | capsule | for 5 days. | | | | | + + + +---------+ + + | cyanocobalamin | Take 1 tablet by | 90 | 3 | 06/25/19 | | | (VITAMIN B-12) 1000 | mouth every morning. | tablet | | 19 | 9 | | MCG tablet | | | | | | + + + +---------+ + + | DULoxetine | Take 1 capsule by | 90 | 3 | 06/25/19 | | | (CYMBALTA) [address] | mouth every morning. | capsule | | 19 | 9 | | capsule | | | | [...] + + | insulin glargine | Inject 18 Units | 3 vial | 5 | 07/18/19 | | | (LANTUS) 100 | under the skin | | | 19 | 9 | | units/mL injection | [...] + + +---------+ + + | insulin lispro | Inject 0-6 Units | | 0 | 07/18/19 | | | (HUMALOG) 100 | under the skin 4 | | | 19 | 9 | | units/mL injection | times daily (with | | | | | | (vial) | meals and nightly). | | | | | + + + +---------+ + + | levothyroxine | Take 3 tablets by | 90 | 0 | 07/12/19 | | | (SYNTHROID) 75 MCG | mouth every morning | tablet | | 19 | 9 | | tablet | (before breakfast) | | | | | | | for 30 days. | | | | | + + + +---------+ + + | loperamide | Take 2 mg by mouth 4 | | 0 | | | | (IMODIUM) 2 mg | times daily as | | | | 9 | | capsule | needed for Diarrhea. | | | | | + + + +---------+ + + | losartan (COZAAR) | Take 1 tablet by | 90 | 3 | 07/18/19 | | | 50 mg tablet | mouth 2 times daily. | tablet | | 19 | 9 | + + + +---------+ + + | omeprazole | Take 1 capsule by | 90 | 1 | 06/25/19 | | | (PRILOSEC) 20 mg | mouth every morning | capsule | | 19 | 9 | | capsule | (before breakfast). | | | | | + + + +---------+ + + | ondansetron | Take 1 tablet by | 24 | 0 | 04/13/19 | | | (ZOFRAN ODT) 4 mg | mouth every 8 hours | tablet | | 19 | 9 | | disintegrating | as needed for | | | | | | tablet | Nausea. | | | | | + + + +---------+ + + | polyethylene | Take 1 diluted | | 0 | 07/18/19 | | | glycol (MIRALAX) | packet by mouth | | | 19 | 9 | | packet | Daily as needed for | | | | | | | Constipation. | | | | | + + + +---------+ + + | pregabalin | Take 1 capsule by | 30 | 1 | 07/18/19 | | | (LYRICA) 300 MG | mouth every evening. | capsule | | 19 | 9 | | capsule | | | | [...] testosterone | Place 1 patch onto | 60 | 1 | 03/11/20 | | | (ANDRODERM) 2 mg/24 | the skin nightly. | patch | | 18 | 9 | | hrIndications: | | | | | | | Hypogonadotropic | | | | | | | hypogonadism (HCC) | | | | | | + + + +---------+ + + | traZODone | Take 2 tablets by | 90 | 3 | 04/08/19 | | | (DESYREL) 50 mg | mouth nightly. | tablet | | 19 | 9 | | tabletIndications: | | | | | | | Insomnia secondary | | | | | | | to chronic pain | | | | | | + + + +---------+ + + | urea (CARMOL) 40 % | Apply to affected | 120 g | 5 | 02/20/20 | | | CREA | areas daily | | | 18 | 9 | + + + +---------+ [...] [place] | | | | | | [address] | | | | | | [phone] | | | | | | | | +--------+---------+ + + + | 02/26/ | Office | Urology | Malcolm Lillie | | | 2018 | Visit | | LILLIE Lopez [address] | | | | | | [address] | | | | | | [place], [place] | | | | | | [address] | | | | | | [phone] | | | | | | | | +--------+---------+ + + + | 03/16/ | Office | Neurology | Theresa, | | | 2018 | Visit | | SHONDA M[address]ney [address] | | [address] [place], | | | | | | [place] [address] | | | | | | [phone] | | | | | | | | +--------+---------+ + + + | 04/12/ | Office | Primary Care | Massimo Ramos | | | 2019 | Visit | | MD Fer [address] | | | | | | [address] [place], [place] | | | | | | [address] | | | | | | | | +--------+---------+ + + + | 10/03/ | Office | Neurology | Fabián Carias MD | | | 2019 | Visit | | [address] | | | | | | [place] | | | | | | [address] | | | | | | | [...] | | | care | | | Bearing Maker-C | | | | | | | [...] | | | care | | | Bearing Maker-C | | | | | | | [...] | | | care | | | Bearing Maker-C | | | | | | | [...] | | | care | | | Bearing Maker-C | | | | | | | [...] + + | VAS CAROTID DUPLEX | STAT | 07/21/2018 | Syncope, | Results for this | | BILATERAL | | 11:11 AM | unspecified syncope | procedure are in the | | | | PDT | type | results section. | + +--------+ + + + documented in this encounter Results VAS Carotid Duplex Bilateral (07/21/2018 11:11 AM PDT) + + | Specimen | + + | | + + + + + | Impressions | Performed At | + + + | IMPRESSION: No significant stenosis of either the right or left | [facility] | | extracranial system has been demonstrated based on NASCET | | | criteria.Mild atherosclerosis carotid bulb bilateral Dictated by: | | | Troy Lawrence Electronically Signed by: Troy Lawrence on | | | 07/21/2018 11:21 AM | | + + + + + + | Narrative | Performed At | + + + | EXAMINATION: VAS CAROTID DUPLEX BILATERAL HISTORY: syncope, | [facility] | | recurrent r/o VBI COMPARISON STUDY: None FINDINGS: High | | | resolution real time sonography combined with pulsed and color doppler | | | flow analysis has been obtained from both extracranial carotid | | | systems. No significant elevated velocity of either the right or | | | left extracranial system is demonstrated. Flow direction in both | | | vertebral arteries is normal.Mild atherosclerosis carotid bulb | | | bilateral | | + + + + + | Procedure Note | + + | Osito, Rad Results In - 07/21/2018 11:24 AM PDT EXAMINATION:VAS CAROTID DUPLEX | | BILATERALHISTORY:syncope, recurrent r/o VBICOMPARISON STUDY:NoneFINDINGS: High | | resolution real time sonography combined with pulsed and color doppler flow analysis has | | been obtained from both extracranial carotid systems. No significant elevated velocity | | of either the right or left extracranial system is demonstrated. Flow direction in | | both vertebral arteries is normal.Mild atherosclerosis carotid bulb bilateralIMPRESSION: | | IMPRESSION: No significant stenosis of either the right or left extracranial system has | | been demonstrated based on NASCET criteria.Mild atherosclerosis carotid bulb | | bilateralDictated by: Troy Lawrence | | 11:21 AM | | High resolution real time sonography combined with pulsed and color doppler flow analysis has been obtained from both extracranial carotid systems. No significant elevated velocity of either the right or left | |extracranial system is demonstrated. Flow | |direction in both vertebral arteries is normal.Mild atherosclerosis carotid bulb bilateral | | | |IMPRESSION: | |IMPRESSION: | | No significant stenosis of either the right or left extracranial system has been demonstra rosemarie based on NASCET criteria.Mild atherosclerosis carotid bulb bilateral | | | |Dictated by: Troy Lawrence | | | | | + + + +---------+ + + | Performing | Address | City/State/Zipcode | Phone Number | | Organization | | | | + +---------+ + + | [facility] | | | | + +---------+ + + documented in this encounter Visit Diagnoses + + | Diagnosis | + + | Syncope, unspecified syncope type | + + documented in this encounter Additional Health Concerns + + + + | Infection | Noted Time | Resolved Time | + + + + | Methicillin-resistant Staphylococcus aureus | 07/20/2018 4:00 PM | | | | PDT | | + + + + documented as of this encounter"
--- OUTSIDE RECORDS SUMMARY | ~2019-02-17 | XMS | Encounter Summary ---
Demographics + + + | Address | [address] | | | [place] [address] | + + + | Home Phone | | + + + | Preferred Language | Unknown | + + + | Marital Status | | + + + | Faith Affiliation | 1025 | + + + | Race | Unknown | + + + | Ethnic Group | Unknown | + + + Author + + + | Author | [facility] | | | and [place] | + + + | Organization | [facility] | | [...] Team Providers + +------+ + | Care Flame Annealing Machine Setter Name | Role | Phone | + +------+ + PCP | Unavailable | + +------+ + Encounter Details +--------+ + + + + | Date | Type | Department | Care Team | Description | +--------+ + + + + | 02/23/ | Hospital | [facility] | Esthela Garza | | | 2008 | Encounter | [facility] | [address] | | | | [address] [place] | [place], | | | | | [place] | [place] [address] | | | | | [address] | [phone] | | | | | [phone] | | | +--------+ + + + [...] [place] | | | | | | [address] | | | | | | [phone] | | | | | | | | +--------+---------+ + + + | 02/26/ | Office | Urology | Lillie Fowler | | | 2018 | Visit | | LILLIE Lopez [address] | | | | | | [address] | | | | | | [place], [place] | | | | | | [address] | | | | | | [phone] | | | | | | | | +--------+---------+ + + + | 03/16/ | Office | Neurology | Theresa, | | | 2018 | Visit | | [address] | | | | | | [address] [place], | | | | | | [place] [address] | | | | | | [phone] | | | | | | | | +--------+---------+ + + + | 04/12/ | Office | Primary Care | Massimo Ramos | | | 2019 | Visit | | MD Fer [address] | | | | | | [address] [place] | | | | | | [address] | | | | | | | | +--------+---------+ + + + | 10/03/ | Office | Neurology | Fabián Carias MD | | | 2019 | Visit | | [address] | | | | | | [place] | | | | | | [address] | | | | | | | [...] | | | care | | | Campus Security Director-C | | | | | | | [...] | | | care | | | Campus Security Director-C | | | | | | | [...] | | | care | | | Campus Security Director-C | | | | | | | [...] | | | care | | | Campus Security Director-C | | | | | | | linical | + +--------+ +---+-----+ + + + | Note: Pt will | | check CBG's daily x1 | | Pt will take Lantis as | | prescribed | + + documented as of this encounter Visit Diagnoses Not on filedocumented in this encounter"
--- OUTSIDE RECORDS SUMMARY | ~2019-02-17 | XMS | Encounter Summary ---
Demographics + + + | Address | [address] | | | [place] [address] | + + + | Home Phone | | + + + | Preferred Language | Unknown | + + + | Marital Status | | + + + | Denominational Affiliation | 1025 | + + + | Race | Unknown | + + + | Ethnic Group | Unknown | + + + Author + + + | Author | [facility] | | | and [place] | + + + | Organization | [facility] | | | [...] Team Providers + +------+ + | Care Wilton Weaver Name | Role | Phone | + +------+ + | Horacio Silvestre DO | PCP | | + +------+ + Reason for Visit + + + | Reason | Comments | + + + | Follow-up | pain is difficult to manage, please address medication dosage and | | | frequency | + + + | Other | legs go numb when laying down | + + + Encounter Details +--------+---------+ + + + | Date | Type | Department | Care Team | Description | +--------+---------+ + + + | 06/27/ | Office | [facility] | Horacio Silvestre, | Multilevel | | 2018 | Visit | [facility] | DO [address] | degenerative disc | | | | [facility] | [place], [place] | disease (Primary | | | | [address] [place], | [address] | Dx); Bilateral | | | | [place] [address] | [phone] | carpal tunnel | | | | [phone] | | syndrome; 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 | | | | | | current [...] + + + | Blood Pressure | 128/82 | 06/27/2017 10:20 AM | | | | | PDT | | + + + + + | Pulse | 74 | 06/27/2017 10:20 AM | | | | | PDT | | + + + + + | Temperature | 36.4 C (97.5 F) | 06/27/2017 10:20 AM | | | | | PDT | | + + + + + | Respiratory Rate | 18 | 06/27/2017 10:20 AM | | | | | PDT | | + + + + + | Oxygen Saturation | 94% | 06/27/2017 10:20 AM | | | | | PDT | | + + + + + | Inhaled Oxygen | - | - | | | Concentration | | | | + + + + + | Weight | 96.5 kg (212 lb 12.8 | 06/27/2017 10:20 AM | | | | oz) | PDT | | + + + + + | Height | 167.6 cm (5' 6") | 06/27/2017 10:20 AM | | | | | PDT | | + + + + + | Body Mass Index | 34.35 | 06/27/2017 10:20 AM | | | | | PDT | | + + + + + documented in this encounter Progress Notes Horacio Silvestre DO - 06/27/2017 10:45 AM PDTMultilevel degenerative disc disease denotes disc disease in lumbar spine. 7 :06 AM PDTHoracio Silvestre DO - 06/27/2017 10:45 AM PDTFormatting of this note might be di fferent from the original. Patient ID: Geraldo Mcfadden is a 77 y.o. year old male Chief Complaint: Chief Complaint Patient presents with Follow-up pain is difficult to manage, please address medication dosage and frequency Other legs go numb when laying down Assessment and Plan: 1. Multilevel degenerative disc disease - pregabalin (LYRICA) 300 MG capsule; Take 1 capsule by mouth 2 times daily. Dispense: 60 capsule; Refill: 0 - oxyCODONE 10 MG TABS; Take 1 tablet by mouth Twice daily as needed for Pain. Dispense: 56 tablet; Refill: 0 2. Bilateral carpal tunnel syndrome Schedule an appointment with Dr. Carias for likely EMG of wrists. - oxyCODONE 10 MG TABS; Take 1 tablet by mouth Twice daily as needed for Pain. 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 Dispense: 56 tablet; Refill: 0 Subjective: Neck Pain This is a chronic problem. The current episode started more than 1 year ago. The problem oc curs constantly. The problem has been gradually worsening. The pain is associated with an un known factor. The pain is present in the midline. The quality of the pain is described as bu rning. The pain is moderate. The symptoms are aggravated by bending, position and twisting. The pain is same all the time. Associated symptoms include leg pain, numbness and tingling. Pertinent negatives include no headaches. He has tried oral narcotics for the symptoms. The treatment provided mild relief. Back Pain This is a chronic problem. The current episode started more than 1 year ago. The problem oc curs constantly. The problem is unchanged. The pain is present in the lumbar spine and sacro -iliac. The quality of the pain is described as shooting and stabbing. The pain is moderate. The symptoms are aggravated by lying down. Associated symptoms include leg pain, numbness, paresthesias and tingling. Pertinent negatives include no headaches. Risk factors include ob esity. He has tried analgesics for the symptoms. The treatment provided mild relief. Allergies: Allergies Allergen Reactions Zolpidem Anaphylaxis Past Medical History: Diagnosis Date Carpal tunnel syndrome, bilateral 05/31/2013 DDD (degenerative disc disease), cervical 05/22/2013 Diabetes mellitus (HCC) GERD (gastroesophageal reflux disease) Gout Hiatal hernia Hypertension Melanoma (HCC) L ear Melanoma (HCC) Left ear 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, left (HCC) Neck pain, chronic 05/22/2013 Neuropathy (HCC) Paresthesias - both hands 05/22/2013 Thyroid disease Past Surgical History: Procedure Laterality Date APPENDECTOMY CATARACT REMOVAL Right 04/28/2017 Procedure: CATARACT REMOVAL; Surgeon: Tay Kern MD; Location: [facility] MOHS SURGERY Left [...] lungs every 4 hours as needed for Wheezing or Shortness of Breath. 1 Inhaler 1 aspirin 325 mg tablet Take 325 mg by mouth Daily. atenolol (TENORMIN) 25 mg tablet Take 25 mg by mouth Daily. atorvaSTATin (LIPITOR) 10 mg tablet Take 10 mg by mouth nightly. Cyanocobalamin (VITAMIN B-12) 1000 MCG/15ML LIQD Take by mouth. fluticasone (FLONASE) 50 mcg/nasal spray 2 sprays by Nasal route Daily. 16 g 4 gabapentin (NEURONTIN) 300 mg capsule Take 600 mg by mouth 3 times daily. guaiFENesin (MUCINEX) 600 mg 12 hr tablet Take 2 tablets by mouth 2 times daily. 28 tab let 0 hydroCHLOROthiazide 25 mg tablet Take 25 mg by mouth Daily. insulin aspart (NOVOLOG) 100 units/mL injection Inject [...] Inject 35 Units under the skin nightly. 10 mL 3 levothyroxine (SYNTHROID) 175 MCG tablet Take 1 tablet by mouth every morning (before b reakfast). 90 tablet 3 losartan (COZAAR) 50 mg tablet Take 50 mg by mouth Daily. omeprazole (PRILOSEC) 20 mg capsule Take 20 mg by mouth every morning (before breakfast ). oxyCODONE 10 MG TABS Take 1 tablet by mouth Twice daily as needed for Pain. 56 tablet 0 pregabalin (LYRICA) 300 MG capsule Take 1 capsule by mouth 2 times daily. 60 capsule 0 pseudoePHEDrine (SUDAFED) 120 mg 12 hr tablet Take 120 mg by mouth every 12 hours. sertraline (ZOLOFT) 50 mg tablet Take 50 mg by mouth Daily. testosterone (ANDRODERM) 2.5 mg/[address] 1 patch onto the skin Daily. traZODone (DESYREL) 50 mg tablet Take 50 mg by mouth nightly. No current facility-administered medications for this visit. Review of Systems Musculoskeletal: Positive for back pain and neck pain. Neurological: Positive for tingling, numbness and paresthesias. Negative for headaches. Objective: Vitals: BP 128/82 | Pulse 74 | Temp 36.4 C (97.5 F) (Temporal) | Resp 18 | Ht 1.676 m (5' 6 ") | Wt 96.5 kg (212 lb 12.8 oz) | SpO2 94% | BMI 34.35 kg/m Physical Exam Constitutional: He appears well-developed and well-nourished. No distress. Musculoskeletal: Right wrist: He exhibits tenderness. Cervical back: He exhibits tenderness and pain. Lumbar back: He exhibits tenderness and pain. + Tinel's b/l wrists with + Phalen's b/l. Nursing note and vitals reviewed. documented in [...] [place] | | | | | | [address] | | | | | | [phone] | | | | | | | | +--------+---------+ + + + | 02/26/ | Office | Urology | Malcolm Lillie | | | 2018 | Visit | | [address] | | | | | | [address] | | | | | | [place] | | | | | | [address] | | | | | | [phone] | | | | | | | | +--------+---------+ + + + | 03/16/ | Office | Neurology | Theresa, | | | 2018 | Visit | | [address] | | | | | [address] [place], | | | | | | [place] [address] | | | | | | [phone] | | | | | | | | +--------+---------+ + + + | 04/12/ | Office | Primary Care | Massimo Ramos | | | 2019 | Visit | | MD Fer [address] | | | | | | [address] [place] | | | | | | [address] | | | | | | | | +--------+---------+ + + + | 10/03/ | Office | Neurology | Fabián Carias MD | | | 2019 | Visit | | [address] | | | | | | [place] | | | | | | [address] | | | | | | | [...] | | | care | | | Inside Contractor Sales-C | | | | | | | [...] | | | care | | | Inside Contractor Sales-C | | | | | | | [...] | | | care | | | Inside Contractor Sales-C | | | | | | | [...] | | | care | | | Inside Contractor Sales-C | | | | | | | [...] | site unspecified | + + | Bilateral carpal tunnel syndrome Carpal tunnel syndrome | + + | 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
--- OUTSIDE RECORDS SUMMARY | ~2019-02-17 | XMS | Encounter Summary ---
Demographics + + + | Address | [address] | | | [place] [address] | + + + | Home Phone | | + + + | Preferred Language | Unknown | + + + | Marital Status | | + + + | Latter Day Affiliation | 1025 | + + + | Race | Unknown | + + + | Ethnic Group | Unknown | + + + Author + + + | Author | [facility] | | | and [place] | + + + | Organization | [facility] | | [...] Team Providers + +------+ + | Care Sap Data Architect Name | Role | Phone | + +------+ + | Horacio Silvestre DO | PCP | | + +------+ + Reason for Visit + + + | Reason | Comments | + + + | Case Management | | + + + Encounter Details +--------+ + + + + | Date | Type | Department | Care Team | Description | +--------+ + + + + | 08/27/ | Telephone | [facility] | Gissell Mattson | Case Management | | 2018 | | HOSPITAL [facility] | G, Case | | | | | MANAGEMENT [address] | Video Operator-Clinical | | | | | [address] | | | | | | [place] | | | | | | [address] | | | | | | [phone] | | | +--------+ + + + + Social History + +-------+ +--------+ + | Tobacco Use | Types | Packs/Day | Years | Date | | | | | Used | | + +-------+ +--------+ + | Former Smoker | | 3 | 15 | Quit: 1975 | + +-------+ +--------+ [...] do you have serious | No | 08/25/2018 | | difficulty hearing? | | | + + + + | Are you blind or do you have serious | No | 08/25/2018 | | difficulty seeing, even when wearing | | | | glasses? | | | + + + + | Do you have serious difficulty walking or | No | 08/25/2018 | | climbing stairs? (5 years old or older) | | | + + + + | Do you have difficulty dressing or bathing? | No | 08/25/2018 | | (5 years old or older) | | | + + + + | Because of a physical, mental, or emotional | Yes | 08/25/2018 | | condition, do you have difficulty [...] physical, mental, or emotional | Yes | 08/25/2018 | | condition, do you have serious [...] [place] | | | | | | [address] | | | | | | [phone] | | | | | | | | +--------+---------+ + + + | 02/26/ | Office | Urology | Lillie Folwer | | | 2018 | Visit | | [address] | | | | | | [address] | | | | | | [place] | | | | | | [address] | | | | | | [phone] | | | | | | | | +--------+---------+ + + + | 03/16/ | Office | Neurology | Theresa, | | | 2018 | Visit | | [address] | | | | | | [address], | | | | | | [place] [address] | | | | | | [phone] | | | | | | | | +--------+---------+ + + + | 04/12/ | Office | Primary Care | Massimo Ramos | | | 2019 | Visit | | MD Fer [address] | | | | | | [place] | | | | | | [address] | | | | | | | | +--------+---------+ + + + | 10/03/ | Office | Neurology | Fabián Carias MD | | | 2019 | Visit | | [address] | | | | | | [place] | | | | | | [address] | | | | | | | [...] | | | care | | | Video Operator-C | | | | | | [...] | | | care | | | Video Operator-C | | | | | | [...] | | | care | | | Video Operator-C | | | | | | [...] | | | care | | | Video Operator-C | | | | | | [...]
--- OUTSIDE RECORDS SUMMARY | ~2019-02-17 | XMS | Encounter Summary ---
Demographics + + + | Address | [address] | | | [place] [address] | + + + | Home Phone | | + + + | Preferred Language | Unknown | + + + | Marital Status | | + + + | Faith Affiliation | 1025 | + + + | Race | Unknown | + + + | Ethnic Group | Unknown | + + + Author + + + | Author | [facility] | | | and [place] | + + + | Organization | [facility] | | [...] Team Providers + +------+ + | Care Painter And Body Work Name | Role | Phone | + [...] Description | +--------+--------+ + + + | 08/07/ | Refill | [facility] | Horacio Silvestre, | Medication Refill | | 2017 | | [facility] | DO [address] | | | | | [facility] [address] | [facility], [place] | | | | | [address] [place], | [address] | | | | | [place] [address] | [phone] | | | | | [phone] | | | +--------+--------+ + + + [...] [place] | | | | | | [address] | | | | | | [phone] | | | | | | | | +--------+---------+ + + + | 02/26/ | Office | Urology | Lillie Fowler | | | 2018 | Visit | | [address] | | | | | | [address] | | | | | | [place] | | | | | | [address] | | | | | | [phone] | | | | | | | | +--------+---------+ + + + | 03/16/ | Office | Neurology | Theresa, | | | 2018 | Visit | | [address] | | | | | [address] [place], | | | | | | [place] [address] | | | | | | [phone] | | | | | | | | +--------+---------+ + + + | 04/12/ | Office | Primary Care | Massimo Ramos | | | 2019 | Visit | | MD Fer [address] | | | | | | [place] | | | | | | [address] | | | | | | | | +--------+---------+ + + + | 10/03/ | Office | Neurology | Fabián Carias MD | | | 2019 | Visit | | [address] | | | | | | [place], [place] | | | | | | [address] | | | | | | | [...] | | | care | | | Speech Language Pathologist Prn-C | | | | | | | [...] | | | care | | | Speech Language Pathologist Prn-C | | | | | | | [...] | | | care | | | Speech Language Pathologist Prn-C | | | | | | | [...] | | | care | | | Speech Language Pathologist Prn-C | | | | | | | [...] | | unspecified | + + | 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
--- OUTSIDE RECORDS SUMMARY | ~2019-02-17 | XMS | Encounter Summary ---
Demographics + + + | Address | [address] | | | [place] [address] | + + + | Home Phone | | + + + | Preferred Language | Unknown | + + + | Marital Status | | + + + | Orthodox Affiliation | 1025 | + + + | Race | Unknown | + + + | Ethnic Group | Unknown | + + + Author + + + | Author | [facility] | | | and [place] | + + + | Organization | [facility] | [...] Team Providers + +------+ + | Care Concrete Saw Operator Name | Role | Phone | [...] | | | [address] [place], | [facility], [place] | | | | | [place] [address] | [address] | | | | | [phone] | [phone] | | | | | | | [...] Office | General Surgery | Scott De Oliveria | | | 2018 | Visit | | DO Luis Fernando aRo | | | | | | [address] | | | | | | [place] | | | | | | [address] | | | | | | [phone] | | | | | | | | +--------+---------+ + + + | 02/26/ | Office | Urology | Lillie Fowler | | | 2018 | Visit | | [address] | | | | | | [address] | | | | | | [place] | | | | | | [address] | | | | | | [phone] | | | | | | | | +--------+---------+ + + + | 03/16/ | Office | Neurology | Theresa, | | | 2018 | Visit | | [address] | | | | | | [address] [place], | | | | | | [place] [address] | | | | | | [phone] | | | | | | | | +--------+---------+ + + + | 04/12/ | Office | Primary Care | Massimo Ramos | | | 2019 | Visit | | MD Fer [address] | | | | | | [address] [place] | | | | | | [address] | | | | | | | | +--------+---------+ + + + | 10/03/ | Office | Neurology | Fabián Carias MD | | | 2019 | Visit | | [address] | | | | | | [place] | | | | | | [address] | | | | | | | [...] | | | care | | | Table Saw Operator-C | | | | | | [...] | | | care | | | Table Saw Operator-C | | | | | | [...] | | | care | | | Table Saw Operator-C | | | | | | [...] | | | care | | | Table Saw Operator-C | | | | | | | linical | + +--------+ +---+-----+ + + + | Note: Pt will | | check CBG's daily x1 | | Pt will take Lantis as | | prescribed | + + documented as of this encounter Visit Diagnoses Not on filedocumented in this encounter"
--- OUTSIDE RECORDS SUMMARY | ~2019-02-17 | XMS | Encounter Summary ---
Demographics + + + | Address | [address] | | | [place] [address] | + + + | Home Phone | | + + + | Preferred Language | Unknown | + + + | Marital Status | | + + + | Faith Affiliation | 1025 | + + + | Race | Unknown | + + + | Ethnic Group | Unknown | + + + Author + + + | Author | Located Within [facility] | | | and [place] | + + + | Organization | Located Within [facility] | | [...] Team Providers + +------+ + | Care Exchange Specialist Name | Role | Phone | + +------+ + | Horacio Silvestre DO | PCP | | + +------+ + Reason for Visit + + + | Reason | Comments | + + + | Shortness of Breath | pt states he is "light headed and dizzy" with difficulty | | | breathing. pt states it has been going on for a few days. pt | | | states any work makes it worse but today he has been unable to | | | catch his breath. | + + + Encounter Details +--------+---------+ + + + | Date | Type | Department | Care Team | Description | +--------+---------+ + + + | 08/08/ | Office | [facility] | Horacio Silvestre, | Panlobular emphysema | | 2018 | Visit | [facility] | DO [address] | ([facility]) | | | | [facility] [address] | [facility], [place] | | | | [address] [facility], | [address] | | | | | [place] [address] | [phone] | | | | | [phone] | | | +--------+---------+ + + + [...] + + + | Blood Pressure | 102/82 | 08/08/2017 1:37 PM | | | | | PDT | | + + + + + | Pulse | 67 | 08/08/2017 1:37 PM | | | | | PDT | | + + + + + | Temperature | 36.7 C (98.1 F) | 08/08/2017 1:37 PM | | | | | PDT | | + + + + + | Respiratory Rate | 12 | 08/08/2017 1:37 PM | | | | | PDT | | + + + + + | Oxygen Saturation | 92% | 08/08/2017 1:37 PM | | | | | PDT | | + + + + + | Inhaled Oxygen | - | - | | | Concentration | | | | + + + + + | Weight | 99.5 kg (219 lb 5.4 | 08/08/2017 1:37 PM | | | | oz) | PDT | | + + + + + | Height | 167.6 cm (5' 6") | 08/08/2017 1:37 PM | | | | | PDT | | + + + + + | Body Mass Index | 35.4 | 08/08/2017 1:37 PM | | | | | PDT | | + + + + + documented in this encounter Progress Notes Horacio Silvestre, - 08/08/2017 1:30 PM PDTFormatting of this note might be different f rom the original. Patient ID: Geraldo Mcfadden is a 77 y.o. year old male Chief Complaint: Chief Complaint Patient presents with Shortness of Breath pt states he is "light headed and dizzy" with difficulty breathing. pt states it has been going on for a few days. pt states any work makes it worse but today he has been unable to catch his breath. Assessment and Plan: 1. Panlobular emphysema (HCC) - umeclidinium (INCRUSE ELLIPTA) 62.5 mcg/puff inhaler; Inhale 1 puff into the lungs Daily. Dispense: 1 Inhaler; Refill: 2 - Pulmonary function test; Future Subjective: Shortness of Breath This is a chronic problem. The current episode started more than 1 year ago. The problem oc curs constantly. The problem has been rapidly worsening. Associated symptoms include rhinorr hea, sputum production and syncope. Pertinent negatives include no chest pain or headaches. He has tried beta agonist inhalers for the symptoms. The treatment provided mild relief. His past medical history is significant for COPD. Allergies: Allergies Allergen Reactions Zolpidem Anaphylaxis Past [...] CATARACT REMOVAL; Surgeon: Tay Kern MD; Location: [facility] MOHS SURGERY Left [...] 1 tablet b y mouth every day 6 tablet 0 cyanocobalamin (VITAMIN B-12) 1000 MCG tablet Take 1 tablet by mouth Daily. 90 tablet 0 Cyanocobalamin (VITAMIN B-12) 1000 MCG/15ML LIQD Take by mouth. fluticasone (FLONASE) 50 mcg/nasal spray 2 sprays by Nasal route Daily. 16 g 4 gabapentin (NEURONTIN) 300 mg capsule Take 600 mg by mouth 3 times daily. glucose blood test strips (ACCU-CHEK ROSY PLUS) strip Pt check TID (morning, aftern oon, and evening) 100 each 1 guaiFENesin (MUCINEX) 600 mg 12 hr tablet [...] Units under the skin nightly. 10 mL 1 levothyroxine (SYNTHROID) 175 MCG tablet Take 1 tablet by mouth every morning (before b reakfast). 90 tablet 3 losartan (COZAAR) 50 mg tablet Take 50 mg by mouth Daily. omeprazole (PRILOSEC) 20 mg capsule Take 1 capsule by mouth every morning (before break fast). 90 capsule 0 oxyCODONE 10 MG TABS Take 1 [...] tablet Take 50 mg by mouth nightly. umeclidinium (INCRUSE ELLIPTA) 62.5 mcg/puff inhaler Inhale 1 puff into the lungs Daily . 1 Inhaler 2 No current facility-administered medications for this visit. Review of Systems HENT: Positive for rhinorrhea. Respiratory: Positive for sputum production and shortness of breath. Cardiovascular: Positive for syncope. Negative for chest pain. Neurological: Negative for headaches. Objective: Vitals: BP 102/82 | Pulse 67 | Temp 36.7 C (98.1 F) (Oral) | Resp 12 | Ht 1.676 m (5' 6") | Wt 99.5 kg (219 lb 5.4 oz) | SpO2 92% | BMI 35.40 kg/m Physical Exam Constitutional: He appears well-developed and well-nourished. No distress. Cardiovascular: Normal rate, regular rhythm and normal heart sounds. Exam reveals no berman p and no friction rub. No murmur heard. Pulmonary/Chest: Effort normal and breath sounds normal. No respiratory distress. He has no wheezes. He has no rales. Nursing note and vitals reviewed. documented in [...] [place] | | | | | | [address] | | | | | | [phone] | | | | | | | | +--------+---------+ + + + | 02/26/ | Office | Urology | Lillie Fowler | | | 2018 | Visit | | LILLIE Lopez [address] | | | | | | [address] | | | | | | [place] | | | | | | [address] | | | | | | [phone] | | | | | | | | +--------+---------+ + + + | 03/16/ | Office | Neurology | Theersa, | | | 2018 | Visit | | [address]DA [address] [place], | | | | | | [place] [address] | | | | | | [phone] | | | | | | | | +--------+---------+ + + + | 04/12/ | Office | Primary Care | Massimo Ramos | | | 2019 | Visit | | MD Fer [address] | | | | | | [address] [place] | | | | | | [address] | | | | | | | | +--------+---------+ + + + | 10/03/ | Office | Neurology | Fabián Carias MD | | | 2019 | Visit | | [address] | | | | | | [place] | | | | | | [address] | | | | | | | [...] | | | care | | | Reinsurance Accountant-C | | | | | | | [...] | | | care | | | Reinsurance Accountant-C | | | | | | | [...] | | | care | | | Reinsurance Accountant-C | | | | | | | [...] | | | care | | | Reinsurance Accountant-C | | | | | | | linical | + +--------+ +---+-----+ + + + | Note: Pt will | | check CBG's daily x1 | | Pt will take Lantis as | | prescribed | + + documented as of this encounter Results Pulmonary function test (08/29/2017 2:26 PM PDT) + + + | Narrative | Performed At | + + + | | | + + + documented in this encounter Visit Diagnoses + + | Diagnosis | + + | Panlobular emphysema (HCC) Other emphysema | + + documented in this encounter
--- OUTSIDE RECORDS SUMMARY | ~2019-02-17 | XMS | Encounter Summary ---
Demographics + + + | Address | [address] | | | [place] [address] | + + + | Home Phone | | + + + | Preferred Language | Unknown | + + + | Marital Status | | + + + | Shinto Affiliation | 1025 | + + + [...] Providers + +------+ + | Care Sales Negotiator Name | Role | Phone | + +------+ + | Ryan Gutiérrez MD | PCP | | + +------+ + Encounter Details +--------+ + + + + | Date | Type | Department | Care Team | Description | +--------+ + + + + | 11/07/ | Hospital | [facility] | Macario Sibley | | | 2016 | Encounter | [facility] | [address] | | | | [address] | [address] | | | | | [address] [place], [place] | [place] [address] | | | | | [address] | [phone] | | | | | [phone] | | | +--------+ + + + [...] [place] | | | | | | [address] | | | | | | [phone] | | | | | | | | +--------+---------+ + + + | 02/26/ | Office | Urology | Lillie Fowler | | | 2018 | Visit | | LILLIE Lopez [address] | | | | | | [address] | | | | | | [place] | | | | | | [address] | | | | | | [phone] | | | | | | | | +--------+---------+ + + + | 03/16/ | Office | Neurology | Theresa, | | | 2018 | Visit | | [address] [place], | | | | | | [place] [address] | | | | | | [phone] | | | | | | | | +--------+---------+ + + + | 04/12/ | Office | Primary Care | Massimo Ramos | | | 2019 | Visit | | MD [facility] [address] | | | | | | [address] [place] | | | | | | [address] | | | | | | | | +--------+---------+ + + + | 10/03/ | Office | Neurology | Fabián Carias MD | | | 2019 | Visit | | [address] | | | | | | [place] | | | | | | [address] | | | | | | | [...] | | | care | | | Office Professionals-C | | | | | | | [...] | | | care | | | Office Professionals-C | | | | | | | [...] | | | care | | | Office Professionals-C | | | | | | | [...] | | | care | | | Office Professionals-C | | | | | | | [...] + +--------+ + + + | POC BASIC METABOLIC | Routin | 11/08/2015 | | Results for this | | PANEL | e | 9:44 AM | | procedure are in the | | | | PDT | | results section. | + +--------+ + + + | POC BASIC METABOLIC | Routin | 11/08/2015 | | Results for this | | PANEL | e | 8:45 AM | | procedure are in the | | | | PDT | | results section. | + +--------+ + + + | BLOOD GAS, VENOUS | STAT | 11/08/2015 | | Results for this | | | | 8:40 AM | | procedure are in the | | | | PDT | | results section. | + +--------+ + + + | ACETONE | STAT | 11/08/2015 | | Results for this | | | | 8:40 AM | | procedure are in the | | | | PDT | | results section. | + +--------+ + + + | CBC W/AUTO | STAT | 11/08/2015 | | Results for this | | DIFFERENTIAL | | 8:39 AM | | procedure are in the | | | | PDT | | results section. | + +--------+ + + + | TROPONIN I | STAT | 11/08/2015 | | Results for this | | | | 8:39 AM | | procedure are in the | | | | PDT | | results section. | + +--------+ + + + | SEDIMENTATION RATE | STAT | 11/08/2015 | | Results for this | | | | 8:39 AM | | procedure are in the | | | | PDT | | results section. | + +--------+ + + + | B TYPE NATRIURETIC | STAT | 11/08/2015 | | Results for this | | PEPTIDE | | 8:39 AM | | procedure are in the | | | | PDT | | results section. | + +--------+ + + + | MAGNESIUM | STAT | 11/08/2015 | | Results for this | | | | 8:39 AM | | procedure are in the | | | | PDT | | results section. | + +--------+ + + + | LACTIC ACID | STAT | 11/08/2015 | | Results for this | | | | 8:39 AM | | procedure are in the | | | | PDT | | results section. | + +--------+ + + + | COMPREHENSIVE | STAT | 11/08/2015 | | Results for this | | METABOLIC PANEL | | 8:39 AM | | procedure are in the | | | | PDT | | results section. | + +--------+ + + + documented in this encounter Results POC Basic Metabolic Panel (11/08/2015 9:44 AM PDT) + +-------+ + + + | Component | Value | Ref Range | Performed | Pathologist | | | | | At | Signature | + +-------+ + + + | Sodium, POC | 134 | 134 - 144 | EXTERNAL | | | | | mmol/L | LAB | | + +-------+ + + + | Potassium, | 4.1 | 3.3 - 4.6 | EXTERNAL | | | POC | | mmol/L | LAB | | + +-------+ + + + | Chloride, | 100 | 96 - 108 mmol/L | EXTERNAL | | | POC | | | LAB | | + +-------+ + + + | CO2, | 18 | 24 - 29 mmol/L | EXTERNAL | | | Arterial, | | | LAB | | | POC | | | | | + +-------+ + + + | Glucose, | 478 | 70 - 110 mg/dL | EXTERNAL | | | POC | | | LAB | | + +-------+ + + + | BUN, POC | 29 | 5 - 26 mg/dL | EXTERNAL | | | | | | LAB | | + +-------+ + + + | Creatinine, | 1 | 0.6 - 1.3 mg/dL | EXTERNAL | | | POC | | | LAB | | + +-------+ + + + | Ionized | 1.34 | 1.12 - 1.32 | EXTERNAL | | | Calcium, | | mmol/L | LAB | | | POC | | | | | + +-------+ + + + + + | Specimen | + + | | + + + +---------+ + + | Performing | Address | City/State/Zipcode | Phone Number | | Organization | | | | + +---------+ + + | EXTERNAL LAB | | | | + +---------+ + + POC Basic Metabolic Panel (11/08/2015 8:45 AM PDT) + +-------+ + + + | Component | Value | Ref Range | Performed | Pathologist | | | | | At | Signature | + +-------+ + + + | Sodium, POC | 131 | 134 - 144 | EXTERNAL | | | | | mmol/L | LAB | | + +-------+ + + + | Potassium, | 4.8 | 3.3 - 4.6 | EXTERNAL | | | POC | | mmol/L | LAB | | + +-------+ + + + | Chloride, | 100 | 96 - 108 mmol/L | EXTERNAL | | | POC | | | LAB | | + +-------+ + + + | CO2, | 18 | 24 - 29 mmol/L | EXTERNAL | | | Arterial, | | | LAB | | | POC | | | | | + +-------+ + + + | Glucose, | 562 | 70 - 110 mg/dL | EXTERNAL | | | POC | | | LAB | | + +-------+ + + + | BUN, POC | 29 | 5 - 26 mg/dL | EXTERNAL | | | | | | LAB | | + +-------+ + + + | Creatinine, | 1 | 0.6 - 1.3 mg/dL | EXTERNAL | | | POC | | | LAB | | + +-------+ + + + | Ionized | 1.29 | 1.12 - 1.32 | EXTERNAL | | | Calcium, | | mmol/L | LAB | | | POC | | | | | + +-------+ + + + + + | Specimen | + + | | + + + +---------+ + + | Performing | Address | City/State/Zipcode | Phone Number | | Organization | | | | + +---------+ + + | EXTERNAL LAB | | | | + +---------+ + + Acetone (11/08/2015 8:40 AM PDT) + +-------+ + + + | Component | Value | Ref Range | Performed | Pathologist | | | | | At | Signature | + +-------+ + + + | Ketones | 1.2 | <=0.6 mmol/L | EXTERNAL | | [...] | + +---------+ + + Blood Gas, Venous (11/08/2015 8:40 AM PDT) + +-------+ + + + | Component | Value | Ref Range | Performed | Pathologist | | | | | At | Signature | + +-------+ + + + | pH | 7.35 | 7.35 - 7.45 PH | EXTERNAL | | | | | UNITS | LAB | | + +-------+ + + + | PCO2, | 37 | 41 - 54 mmHG | EXTERNAL | | | Venous, POC | | | LAB | | + +-------+ + + + | HCO3 | 20 | 17 - 28 mmol/L | EXTERNAL [...] | + +---------+ + + Troponin I (11/08/2015 8:39 AM PDT) + +-------+ + + + [...] | + +---------+ + + Sedimentation Rate (11/08/2015 8:39 AM PDT) + +-------+ + + + | Component | Value | Ref Range | Performed | Pathologist | | | | | At | Signature | + +-------+ + + + | ESR | 16 | <=20 mm/h | EXTERNAL | | [...] | | + +---------+ + + Magnesium (11/08/2015 8:39 AM PDT) + +-------+ + + + | Component | Value | Ref Range | Performed | Pathologist | | | | | At | Signature | + +-------+ + + + | Magnesium | 2.1 | 1.8 - 2.4 mg/dL | EXTERNAL [...] | + +---------+ + + Lactic Acid (11/08/2015 8:39 AM PDT) + +-------+ + + + | Component | Value | Ref Range | Performed | Pathologist | | | | | At | Signature | + +-------+ + + + | Lactate, | 2.3 | 0.4 - 2.1 | EXTERNAL | [...] + +---------+ + + Comprehensive Metabolic Panel (11/08/2015 8:39 AM PDT) + +-------+ + + + | Component | Value | Ref Range | Performed | Pathologist | | | | | At | Signature | + +-------+ + + + | Sodium | 131 | 132 - 143 | EXTERNAL | | | | | mmol/L | LAB | | + +-------+ + + + | Potassium | 4.9 | 3.3 - 4.9 | EXTERNAL | | | | | mmol/L | LAB | | + +-------+ + + + | Cl | 96 | 95 - 108 mmol/L | EXTERNAL | | | | | | LAB | | + +-------+ + + + | CO2 | 20 | 23 - 34 mmol/L | EXTERNAL | | | | | | LAB | | + +-------+ + + + | Anion Gap | 15 | 7 - 16 | EXTERNAL | | | | | | LAB | | + +-------+ + + + | Calcium | 10.2 | 8.3 - 10.0 | EXTERNAL | | | | | mg/dL | LAB | | + +-------+ + + + | Glucose | 540 | 70 - 110 mg/dL | EXTERNAL | | | | | | LAB | | + +-------+ + + + | BUN, Bld | 29 | 5 - 26 mg/dL | EXTERNAL | | | | | | LAB | | + +-------+ + + + | Creatinine | 1.4 | 0.70 - 1.40 | EXTERNAL | | | | | mg/dL | LAB | | + +-------+ + + + | BUN/Creatin | 20.7 | 7.0 - 24.0 | EXTERNAL | | | ine Ratio | | RATIO | LAB | | + +-------+ + + + | GFR | 49 | >=60 | EXTERNAL | | | [...] +-------+ + + + | Albumin | 4.4 | 3.0 - 4.5 g/dL | EXTERNAL | | | | | | LAB | | + +-------+ + + + | Alkaline | 82 | 46 - 116 U/L | EXTERNAL | | | Phosphatase | | | LAB | | + +-------+ + + + | ALT, | 29 | 16 - 63 U/L | EXTERNAL | | | External | | | LAB | | + +-------+ + + + | AST, | 20 | <=38 U/L | EXTERNAL | | [...] +---------+ + + CBC w/ Auto Differential (11/08/2015 8:39 AM PDT) + +-------+ + + + | Component | Value | Ref Range | Performed | Pathologist | | | | | At | Signature | + +-------+ + + + | WBC | 11.9 | 4.6 - 10.5 | EXTERNAL | | | | | 1000/mm3 | LAB | | + +-------+ + + + | RBC | 4.88 | 4.36 - 5.83 | EXTERNAL | | | | | mil/mm3 | LAB | | + +-------+ + + + | HGB, | 14.8 | 13.1 - 17.4 | EXTERNAL | | | External | | g/dL | LAB | | + +-------+ + + + | HCT, | 42.5 | 39.0 - 51.9 % | EXTERNAL | | | External | | | LAB | | + +-------+ + + + | MCV | 87 | 82 - 96 fl | EXTERNAL | | | | | | LAB | | + +-------+ + + + | MCH | 30.3 | 27.7 - 32.3 pg | EXTERNAL | | | | | | LAB | | + +-------+ + + + | MCHC | 34.8 | 32.0 - 36.9 | EXTERNAL | | | | | g/dL | LAB | | + +-------+ + + + | RDW-CV | 14.1 | <=17.0 % | EXTERNAL | | | | | | LAB | | + +-------+ + + + | RDW-SD | 44.8 | 34.0 - 57.0 fL | EXTERNAL | | | | | | LAB | | + +-------+ + + + | Platelet | 251 | 150 - 450 | EXTERNAL | | | Count | | 1000/mm3 | LAB | | | Plasma | | | | | + +-------+ + + + | MPV | 11.5 | 9.4 - 12.4 FL | EXTERNAL | | | | | | LAB | | + +-------+ + + + | % Segmented | 66.2 | 42.0 - 76.0 % | EXTERNAL | | | | | | LAB | | | Neutrophils | | | | | + +-------+ + + + | % | 20.5 | 20.0 - 40.0 % | EXTERNAL | | | Lymphocytes | | | LAB | | + +-------+ + + + | % Monocytes | 11.9 | 3.0 - 13.0 % | EXTERNAL | | | | | | LAB | | + +-------+ + + + | % | 1.1 | 0.0 - 7.0 % | EXTERNAL | | | Eosinophils | | | LAB | | + +-------+ + + + | % Basophils | 0.3 | 0.0 - 2.0 % | EXTERNAL | | | | | | LAB | | + +-------+ + + + | Absolute | 7.85 | 2.80 - 7.70 | EXTERNAL | | | Neutrophils | | 1000/mm3 | LAB | | + +-------+ + + + | Absolute | 2.43 | 1.20 - 3.30 | EXTERNAL | | | Lymphocytes | | 1000/mm3 | LAB | | + +-------+ + + + | Absolute | 1.41 | 0.00 - 0.80 | EXTERNAL | | | Monocytes | | 1000/mm3 | LAB | | + +-------+ + + + | Absolute | 0.13 | 0.00 - 0.70 | EXTERNAL | | | Eosinophils | | 1000/mm3 | LAB | | + +-------+ + + + | Absolute | 0.03 [...] | | | + +---------+ + + B Type Natriuretic Peptide (11/08/2015 8:39 AM PDT) + +-------+ + + + | Component | Value | Ref Range | Performed | Pathologist | | | | | At | Signature | + +-------+ + + + | NT-proBNP | 43 | <=852 pg/mL | EXTERNAL | | | | | [...]
--- OUTSIDE RECORDS SUMMARY | ~2019-02-17 | XMS | Clinical Summary ---
Demographics + + + | Address | [address] | | | [place] [address] | + + + | Home Phone | | + + + | Preferred Language | Unknown | + + + | Marital Status | | + + + | Adventist Affiliation | 1025 | + + + | Race | Unknown | + + + | Ethnic Group | Unknown | + + + Author + + + | Author | [facility] | | | and [place] | + + + | Organization | [facility] | | | [...] Team Providers + +------+ + | Care Build Master Name | Role | Phone | + +------+ + | Horacio Silvestre DO | PCP | | + +------+ + Allergies + + + + + + | Active Allergy | Reactions | Severity | Noted | Comments | | | | | Date | | + + + + + + | Zolpidem | Anaphylaxis | High | 01/31/20 | | | | | | 17 | | + + + + + + Medications + + + +---------+------+------+-------+ | Medication | Sig | Dispensed | Refills | Star | End | Statu | | | | | | t | Date | s | | | | | | Date | | | + + + +---------+------+------+-------+ | clopidogrel | Take 75 mg by mouth | | 0 | | | Activ | | (PLAVIX) 75 mg | every morning. | | | | | e | | tablet | | | | | | | + + + +---------+------+------+-------+ | aspirin 325 mg | Take 325 mg by mouth | | 0 | | | Activ | | tablet | every morning. | | | | | e | + + + +---------+------+------+-------+ | amLODIPine | Take 10 mg by mouth | | 0 | | | Activ | | (NORVASC) 10 MG | every morning. | | | | | e | | tablet | | | | | | | + + + +---------+------+------+-------+ | cholecalciferol | Take 2,000 Units by | | 0 | | | Activ | | (VITAMIN D-3) 1000 | mouth every morning. | | | | | e | | units TABS | | | | | | | + + + +---------+------+------+-------+ | cyanocobalamin | Take 1,000 mcg by | | 0 | | | Activ | | (VITAMIN B-12) 1000 | mouth every morning. | | | | | e | | MCG tablet | | | | | | | + + + +---------+------+------+-------+ | DULoxetine | Take 60 mg by mouth | | 0 | | | Activ | | (CYMBALTA) [address] | every morning. | | | | | e | | capsule | | | | | | | + + + +---------+------+------+-------+ | pregabalin | Take 300 mg by mouth | | 0 | | | Activ | | (LYRICA) 300 MG | 2 times daily. | | | | | e | | capsule | | | | | | | + + + +---------+------+------+-------+ | tamsulosin | Take 0.4 mg by mouth | | 0 | | | Activ | | (FLOMAX) 0.4 mg CAPS | nightly. | | | | | e | + + + +---------+------+------+-------+ | testosterone | Place 1 patch onto | | 0 | | | Activ | | (ANDRODERM) 2 mg/24 | the skin nightly. | | | | | e | | hr | | | | | | | + + + +---------+------+------+-------+ | traZODone | Take 100 mg by mouth | | 0 | | | Activ | | (DESYREL) 100 mg | nightly. | | | | | e | | tablet | | | | | | | + + + +---------+------+------+-------+ | albuterol 2.5 mg/3 | Take 3 mLs by | 360 | 0 | 07/1 | | Activ | | mL nebulizer | nebulization every 4 | vial | | 5/20 | | e | | solution | hours as needed for | | | 19 | | | | | Shortness of | | | | | | | | Breath. | | | | | | + + + +---------+------+------+-------+ | | Take 3 mLs by | 360 mL | 0 | 07/1 | | Activ | | albuterol-ipratropiu | nebulization every 6 | | | 5/20 | | e | | m 2.5-0.5 mg/3 mL | hours. | | | 19 | | | | SOLN | | | | | | | + + + +---------+------+------+-------+ | traMADol (ULTRAM) | Take 1 tablet by | 30 | 0 | 08/0 | | Activ | | 50 mg tablet | mouth every 8 hours | tablet | | 8/20 | | e | | | as needed. | | | 19 | | | + + + +---------+------+------+-------+ | losartan (COZAAR) | Take 1 tablet by | 90 | 0 | 08/2 | | Activ | | 50 mg tablet | mouth every morning. | tablet | | 8/20 | | e | | | | | | 19 | | | + + + +---------+------+------+-------+ | insulin glargine | Inject 60 Units | 18 mL | 0 | 09/0 | | Activ | | (LANTUS) 100 | under the skin | | | 7/20 | | e | | units/mL injection | nightly. | | | 19 | | | | (vial) | | | | | | | + + + +---------+------+------+-------+ | | Take 1-2 tablets by | 14 | 0 | 09/0 | | Activ | | HYDROcodone-acetamin | mouth every 4 hours | tablet | | 7/20 | | e | | ophen (NORCO) 5-325 | as needed for Pain. | | | 19 | | | | mg per tablet | | | | | | | + + + +---------+------+------+-------+ | atorvaSTATin | Take 2 tablets by | 60 | 5 | 10/0 | | Activ | | (LIPITOR) 10 mg | mouth nightly. | tablet | | 3/20 | | e | | tabletIndications: | | | | 19 | | | | Type 2 diabetes [...] (HCC) | | | | | | | + + + +---------+------+------+-------+ | sildenafil | Take 1 tablet by | 30 | 11 | 10/2 | | Activ | | (REVATIO) 20 mg | mouth Daily. As | tablet | | 3/20 | | e | | tabletIndications: | needed; may take up | | | 19 | | | | Erectile | to 5 tabs safely. | | | | | | | dysfunction, | | | | | | | | unspecified erectile | | | | | | | | dysfunction type | | | | | | | + + + +---------+------+------+-------+ | nystatin | Apply topically 2 | 30 g | 4 | 10/2 | | Activ | | (MYCOSTATIN) [id number] | times daily. | | | 3/20 | | e | | UNIT/GM | | | | 19 | | | | creamIndications: | | | | | | | | Candidiasis | | | | | | | + + + +---------+------+------+-------+ Active Problems + + | Patient Care Coordination Note | + + | Opioid use agreement with Dr. Silvestre | | | | : Nai | + + + + + | Problem | Noted Date | + + + | Hyperglycemia | 12/08/2018 | + + + | TIA (transient ischemic attack) | 11/02/2018 | + + + | Weakness of both lower extremities | 11/02/2018 | + + + | Mediastinal lymphadenopathy | 10/03/2018 | + + + + + | Overview: Mediastinal adenopathy:03/16/18: CT angiogram of | | chest shows ground-glass opacities with some nodularity in upper | | lobes and lung bases, right greater than left.05/27/18: CT | | angiogram of chest shows resolution of ground-glass lung | | opacities. Lymph nodes are slightly enlarged, similar to | | 03/16/18. Subcarinal node is 1.7 cm.09/30/18: CT angiogram | | pulmonary shows 1.5 cm LLL nodule, 0.7 cm left pleural nodule, | | both new. Lymph nodes in mediastinum and donya are prominent, | | largest 2.5 cm subcarinal.10/12/18: CT angiogram pulmonary shows | | some decrease in lymph nodes compared to 09/30: right hilar node | | is 1.5 cm (compared to 2.0), subcarinal cluster is 2.8 cm | | (compared to 3.0). RLL nodule is also smaller at 0.9 cm. | | Bibasilar opacities are present, L>R, new from 09/30. | + + + + + | Neurologic gait disorder | 09/01/2018 | + + + | 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 | 08/23/2018 | | behavioral disturbance | | + + + | Coordination of complex care | 06/01/2018 | + + + | Hx of transient ischemic attack (TIA) | 04/10/2018 | + + + | Insomnia secondary to chronic pain | 04/08/2018 | + + + | History of bacterial pneumonia | 03/16/2018 | + + + | Primary osteoarthritis involving multiple joints | 09/30/2017 | + + + | Vitamin D deficiency disease | 09/30/2017 | + + + | Panlobular emphysema | 08/08/2017 | + + + | Atherosclerosis of [place] coronary artery of [place] heart without | 08/08/2017 | | angina pectoris | | + + + | On potassium wasting diuretic therapy | 08/08/2017 | + + + | Current use of beta marly | 06/30/2017 | + + + | History of arterial ischemic stroke | 03/07/2017 | + + + | Gastroesophageal reflux disease without esophagitis | 03/07/2017 | + + + | Acquired hypothyroidism | 03/07/2017 | + + + | Pure hypercholesterolemia | 03/07/2017 | + + + | Hypogonadotropic hypogonadism | 03/07/2017 | + + + | Type 2 diabetes mellitus with complication, with long-term | 03/07/2017 | | current use of insulin | | + + + | Class 1 obesity with alveolar hypoventilation, serious | 03/07/2017 | | comorbidity, and body mass index (BMI) of 33.0 to 33.9 in adult | | + + + | Benign prostatic hyperplasia with incomplete bladder emptying | 03/07/2017 | + + + | Acquired diverticulosis of colon | 03/07/2017 | + + + | Chronic nonseasonal allergic rhinitis due to pollen | 03/07/2017 | + + + | long-term current use of aspirin | 03/07/2017 | + + + | Bilateral carpal tunnel syndrome | 05/31/2013 | + + + | Multilevel degenerative disc disease | 05/22/2013 | + + + | 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, left | | + + + Resolved Problems + + + + | Problem | Noted | Resolved | | | Date | Date | + + + + | Uncontrolled type 1 diabetes mellitus with hyperglycemia | 10/14/19 | | | | 19 | 9 | + + + + | COPD, mild | 10/14/19 | 07/15/201 | | | 19 | 9 | + + + + + + | Overview: PFT from 08/2017 showing mild COPD | + + + + + + | Pneumonia due to infectious organism | 10/13/19 | | | | 19 | 9 | + + + + | Acute cystitis without hematuria | 10/04/19 | | | | 19 | 9 | + + + + | Metabolic encephalopathy | 10/04/19 | | | | 19 | 9 | + + + + | Chronic pain syndrome | 09/02/19 | | | | 19 | 9 | + + + + | Uncontrolled type 2 diabetes mellitus with hyperosmolar | 08/24/19 | | | nonketotic hyperglycemia | | 9 | + + + + | Septic shock | 07/25/19 | | | | 19 | 9 | + + + + | Acute respiratory failure with hypoxia | 07/25/19 | | | | 19 | 9 | + + + + | HCAP (healthcare-associated pneumonia) | 07/25/19 | | | | 19 | 9 | + + + + | VIKAS (acute kidney injury) | 07/09/19 | | | | 19 | 9 | + + + + | Orthostatic hypotension | 07/09/19 | | | | 19 | 9 | + + + + | Dehydration | 07/09/19 | | | | 19 | 9 | + + + + | Leukocytosis | 07/09/19 | | | | 19 | 9 | + + + + | Diabetic polyneuropathy associated with type 2 diabetes mellitus | 06/28/19 | | | | 19 | 9 | + + + + | ARF (acute renal failure) | 05/26/19 | | | | 19 | 9 | + + + + | Pneumonia | 05/26/19 | | | | 19 | 9 | + + + + | Hypomagnesemia | 05/26/19 | | | | 19 | 9 | + + + + | Syncope and collapse | 05/19/19 | | | | 19 | 9 | + + + + | long-term current use of non-steroidal anti-inflammatories | 04/08/19 | | | (NSAID) | 19 | 9 | + + + + | Neutrophilic leukocytosis | 03/17/20 | | | | 18 | 8 | + + + + + + | Overview: Leukocytosis:01/15/17: Diagnosed with community | | acquired pneumonia. WBC 20.8 with ANC 17.8. 3 weeks prior he had | | WBC 9.1 with ANC 5.5.08/15/17: Admitted with pneumonia. WBC 27.2 | | with ANC 14.9. Four days later he had WBC 9.9 with ANC | | 7.4.02/28/18: Presenting with weakness and diaphoresis. WBC 23.4, | | ANC 146.2, Hgb 13.7, Plt 164. Differential shows immature | | granulocytes.03/17/18: WBC 8.4, ANC 5.6, Hgb 11.0, Plt 107. | + + + + + + | Hypoxia | 03/16/20 | | | | 18 | 8 | + + + + | Chronic bilateral low back pain without sciatica | 02/20/20 | | | | 18 | 8 | + + + + | Generalized weakness | 01/10/20 | | | | 18 | 8 | + + + + | Dehydration | 01/10/20 | | | | 18 | 8 | + + + + | Neck pain, chronic | 12/16/19 | | | | 18 | 9 | + + + + + + | Overview: 01/30/18 MRI of Cervical Spine: Multilevel | | degenerative change of the cervical spine as sequentially | | detailed above. Correlation with dermatomal distribution of | | symptoms is recommended.Remote right cerebellar lacunar infarct. | + + + + + + | Chronic bilateral low back pain without sciatica | 12/16/19 | | | | 18 | 9 | + + + + + + | Overview: 04/03/17 EM01/30/18 MRI of Lumbar Spine: | | There is multilevel degenerative change of the spine as | | sequentially detailed above. Correlation with dermatomal | | distribution of symptoms is recommended 02/19/18 Lumbar TPI: | | bilateral paraspinal L5/S1 and paraspinal L3/4 muscles. | + + + + + + | Community acquired pneumonia of left lower lobe of lung | 08/16/19 | | | | 18 | 9 | + + + + | long-term current use of opiate analgesic | 06/28/19 | | | | 18 | 9 | + + + + | Essential hypertension | 03/07/20 | | | | 17 | 9 | + + + + Encounters +--------+ + + + + | Date | Type | Specialty | Care Team | Description | +--------+ + + + + | 02/04/ | Orders Only | Primary Care | Massimo Ramos | Type 2 diabetes | | 2018 | | | MD Fer | mellitus with other | | | | | | specified | | | | | | complication, | | | | | | without long-term | | | | | | current use of | | | | | | insulin (HCC) | | | | | | (Primary Dx) | +--------+ + + + + | 01/27/ | Office | Urology | Lillie Fowler | Benign prostatic | | 2018 | Visit | | [place] | hyperplasia with | | | | | | urinary frequency | | | | | | (Primary Dx); | | | | | | Erectile | | | | | | dysfunction, | | | | | | unspecified erectile | | | | | | dysfunction type; | | | | | | Candidiasis | +--------+ + + + + | 01/25/ | Telephone | Primary Care | Charline Banks, | Care Coordination | | 2018 | | | Case | | | | | | Burn Crew Member-Clinical | | +--------+ + + + + | 01/21/ | Telephone | Primary Care | Massimo Ramos | Appointment Question | | 2018 | | | MD Fer | | +--------+ + + + + | 01/18/ | Telephone | Primary Care | Charline Banks, | Care Coordination | | 2018 | | | Case | | | | | | Burn Crew Member-Clinical | | +--------+ + + + + | 01/15/ | Telephone | Primary Care | Charline Banks, | Care Coordination | | 2018 | | | Case | | | | | | Burn Crew Member-Clinical | | +--------+ + + + + | 01/14/ | Telephone | Primary Care | [place] | ED Follow-up | 2018 | | | Deana Stoll RN | | +--------+ + + + + | 01/12/ | Emergency | Emergency Medicine | Cyn Noble DO | Acute | | 2018 | | | | medication-induced | | | | | | akathisia (Primary | | | | | | Dx); Dehydration; | | | | | | Subclinical | | | | | | hyperthyroidism; | | | | | | Acute renal | | | | | | insufficiency | +--------+ + + + + | 01/12/ | Telephone | Neurology | Cara Campbell RN | Triage (sent to ER) | | 2018 | | | | | +--------+ + + + + | 01/07/ | Office | Primary Care | Massimo Ramos | Type 2 diabetes | | 2018 | Visit | | MD Fer | mellitus with other | | | | | | specified | | | | | | complication, | | | | | | without long-term | | | | | | current use of | | | | | | insulin (HCC) | | | | | | (Primary Dx); Acute | | | | | | nonintractable | | | | | | headache, | | | | | | unspecified headache | | | | | | type; History of | | | | | | melanoma; | | | | | | Immunization due; | | | | | | Hyperthyroidism; | | | | | | Benign prostatic | | | | | | hyperplasia with | | | | | | incomplete bladder | | | | | | emptying; History of | | | | | | arterial ischemic | | | | | | stroke; Acquired | | | | | | hypothyroidism; | | | | | | Dementia associated | | | | | | with other | | | | | | underlying disease | | | | | | without behavioral | | | | | | disturbance (HCC); | | | | | | 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 | | | | | | ear, left (HCC) | +--------+ + + + + | 01/07/ | Telephone | Primary Care | Charline Banks, | Care Coordination | | 2018 | | | Case | | | | | | Burn Crew Member-Clinical | | +--------+ + + + + | 12/22/ | Telephone | Primary Care | Charline Bansk, | Care Coordination | | 2018 | | | Case | | | | | | Burn Crew Member-Clinical | | +--------+ + + + + | 12/17/ | Clinical | Primary Care | Renato Marks, | | | 2018 | Support | | SUCTION DRUM DRIER OPERATOR | | +--------+ + + + + | 12/14/ | Telephone | Primary Care | Charline Banks, | Transitions Of Care | | 2018 | | | Case | | | | | | Burn Crew Member-Clinical | | +--------+ + + + + | 12/10/ | Telephone | Primary Care | Charline Banks, | Care Coordination | | 2018 | | | Case | | | | | | Burn Crew Member-Clinical | | +--------+ + + + + | 12/08/ | Hospital | | Luciano Diana | Hyperglycemia | | 2018 - | Encounter | | MD Johnathan | (Primary Dx); Type 2 | | | | | Esteban Calvillo, | diabetes mellitus | | 12/12/ | | | Aria Travis MD | with complication, | | 2018 | | | | with long-term | | | | | | current use of | | | | | | insulin (HCC) | +--------+ + + + + | 12/08/ | Telephone | Hematology and | Arnaud Franklin | Lab Results | | 2018 | | Oncology | MD Satya | (hyperglycemia) | +--------+ + + + + | 12/08/ | Telephone | Primary Care | Horacio Silvestre, | Urine Problem | | 2018 | | | DO | | +--------+ + + + + | 12/04/ | Telephone | Neurology | Jalyn Carias MD | Pain Management | | 2018 | | | | | +--------+ + + + + | 12/03/ | Procedure | Neurology | Jalyn Carias MD | Chronic low back | | 2018 | visit | | | pain without | | | | | | sciatica, | | | | | | unspecified back | | | | | | pain laterality | | | | | | (Primary Dx); Sprain | | | | | | of ligaments of | | | | | | lumbar spine, | | | | | | sequela | +--------+ + + + + | 12/03/ | Clinical | Primary Care | Ashley Boggs | | 2018 | Support | | MD Barry Garner, | | | | | | [place] | | +--------+ + + + + | 12/03/ | Telephone | Primary Care | Horacio Silvestre, | Home Health (verbal | 2018 | | | DO | order) | +--------+ + + + + | 12/02/ | Telephone | Primary Care | Charline Banks, | Care Coordination | | 2018 | | | Case | | | | | | Burn Crew Member-Clinical | | +--------+ + + + + | 12/01/ | Telephone | Primary Care | Horacio Silvestre, | Hospice Home Visit | | 2019 | | | DO | | +--------+ + + + + | 11/27/ | Office | Primary Care | Renato Marks, | Preventative health | | 2018 | Visit | | SUCTION DRUM DRIER OPERATOR | care (Primary Dx); | | | | | | Opioid use | +--------+ + + + + | 11/25/ | Telephone | Primary Care | Horacio Silvestre, | Medication Question | | 2018 | | | DO | | +--------+ + + + + | 11/25/ | Telephone | Neurology | Jalyn Carias MD | Medication Related | | 2018 | | | | | +--------+ + + + + | 11/23/ | Office | Neurology | Jalyn Carias MD | Chronic low back | | 2019 | Visit | | | pain without | | | | | | sciatica, | | | | | | unspecified back | | | | | | pain laterality | | | | | | (Primary Dx); Sprain | | | | | | of ligaments of | | | | | | lumbar spine, | | | | | | sequela ; | | | | | | Uncontrolled type 2 | | | | | | diabetes mellitus | | | | | | with hyperglycemia | | | | | | ([facility]) | +--------+ + + + + | 11/23/ | Telephone | Primary Care | Charline Banks, | Care Coordination | | 2018 | | | Case | | | | | | Burn Crew Member-Clinical | | +--------+ + + + + | 11/20/ | Telephone | Immediate Care | Horacio Silvestre, | Appointment | | 2019 | | | DO | | +--------+ + + + + from Last 3 Months Immunizations + + + + | Name | Administration Dates | Next Due | + + + + | INFLUENAZ PF | 12/07/2015 | | | TRIVALENT | | | | INTRADERMAL | | | + + + + | INFLUENZA 63 Y OR >, | 01/07/2019 | | | TRIVALENT HIGH-DOSE | | | + + + + | INFLUENZA PF | 01/11/2018, 01/16/2017 | | | QUAD(PED/ADOL/ADULT) | | | | ,PSKT or VIAL | | | + + + + | INFLUENZA TRIV | 12/07/2015 | | | W/PRES(PED/ADOL/ADUL | | | | T),MULTIDOSE | | | + + + + | PNEUMOCOCCAL | 08/24/2018 | | | CONJUGATE 13-VALENT | | | | (PCV13) | | | + + + + | TDAP, (ADOL/ADULT) | 01/07/2019 | | + + + + Family History + + +------+ + | Medical History | Relation | Name | Comments | + + +------+ + | Heart disease | Father | | | + + +------+ + | Arthritis | Maternal | | | | | Grandfath | | | | | er | | | + + +------+ + | Heart disease | Maternal | | | | | Grandfath | | | | | er | | | + + +------+ + | Diabetes | Mother | | | + + +------+ + | Other (see comment) | Paternal | | Dementia | | | Grandmoth | | | | | er | | | + + +------+ + + +------+--------+ + | Relation | Name | Status | Comments | + +------+--------+ + | Father | | | | + +------+--------+ + | Maternal Grandfather | | | | + +------+--------+ + | Mother | | | | + +------+--------+ + | Paternal Grandmother | | | | + +------+--------+ + Social History + + + +--------+ [...] recent travel history available. | + + Last Filed Vital Signs + + + + + | Vital Sign | Reading | Time Taken | Comments | + + + + + | Blood Pressure | 124/71 | 01/27/2019 10:19 AM | | | | | PDT | | + + + + + | Pulse | 91 | [...] | | + + + + + Plan of Treatment +--------+---------+ + + + [...] [place] | | | | | | [address] | | | | | | [phone] | | | | | | | | +--------+---------+ + + + | 02/26/ | Office | Urology | Lillie Fowler | | | 2018 | Visit | | LILLIE Lopez [address] | | | | | [address] | | | | | | [place] | | | | | | [address] | | | | | | [phone] | | | | | | | | +--------+---------+ + + + | 03/16/ | Office | Neurology | Theresa, | | | 2018 | Visit | | SHONDA Mckinney [address] [place], | | | | | | [place] [address] | | | | | | [phone] | | | | | | | | +--------+---------+ + + + | 04/12/ | Office | Primary Care | Massimo Ramos | | | 2019 | Visit | | MD Fer [address] | | | | | | [address] [place] | | | | | | [address] | | | | | | | | +--------+---------+ + + + | 10/03/ | Office | Neurology | Jalyn Carias MD | | | 2019 | Visit | | [address] | | | | | | [place] | | | | | | [address] | | | | | | | | +--------+---------+ + + + + + + + + | Health Maintenance | Due Date | Last Done | Comments | + + + + + | Vaccine: Zoster (1 | | | | | of 2) | 9 | | | + + + + + | Adult Annual | | | | | Wellness Visit | 5 | | | + + + + + | Hemoglobin A1c | | 10/13/2018, 07/08/2018, | | | Screening | 9 | 12/10/2017, Additional history | | | | | exists | | + + + + + | Primary Care | | 01/27/2019, 01/07/2019, | | | Outreach (Very | 9 | 11/27/2018, Additional history | | | Intense Risk) | | exists | | + + + + + | Diabetic Eye Exam | | | Postponed from | | | 0 | | 1956 (Plan in | | | | | Place) | + + + + + | Vaccine: | | 08/24/2018 | | | Pneumococcal 65+ (2 | 0 | | | | of 2 - PPSV23) | | | | + + + + + | Diabetic Foot Exam | | | Postponed from | | | 0 | | 1956 (Patient | | | | | Declined) | + + + + + | Vaccine: | | 01/07/2019 | | | Dtap/Tdap/Td (2 - | 9 | | | | Td) | | | | + + + + + | Vaccine: Influenza | Completed | 01/07/2019, 01/11/2018, | | | | | 01/16/2017, Additional history | | | | | exists | | + + + + + Goals + +--------+ + + + + [...] | | | care | | | Burn Crew Member-C | | | | | | [...] | | | care | | | Burn Crew Member-C | | | | | | [...] | | | care | | | Burn Crew Member-C | | | | | | [...] | | | care | | | Burn Crew Member-C | | | | | | | linical | + +--------+ +---+-----+ + + + | Note: Pt will | | check CBG's daily x1 | | Pt will take Lantis as | | prescribed | + + Implants + +------+------+ +--------+--------+--------+ | Implanted | Type | Area | Manufacture | Device | Shelf | Model | | | | | r | | Expira | / | | | | | | Identi | tion | Serial | | | | | | fier | Date | / Lot | + +------+------+ +--------+--------+--------+ | Tecnis Aspheric | | | PARSON | | 02/28/ | [id number] | | PreloadedImplanted: Qty: 1 on | | | MEDICAL | | 2019 | 0022 | | 04/28/2017 by Erlin, | | | [employer] - | | | /[id number] | | Tay Buckner MD at [facility] | | | [place] | | | [id number] | | [facility] | | | | | | / | + +------+------+ +--------+--------+--------+ Procedures + +--------+ + + + | [...] | + +--------+ + + + | ED INFORMATION | Routin | 01/12/2019 | | | | EXCHANGE | e | 10:39 AM | | | | | | PDT | | | + +--------+ + + + +---+--------+ | | | | | Proced | | | ure | | | Note - | | | Osito, | | | Lab In | | | | | | Hlseve | | | n - | | | | | | 2018 | | | 10:40 | | | AM PDT | | | | | | Format | | | ting | | | of | | | this | | | note | | | might | | | be | | | differ | | | ent | | | from | | | the | | | origin | | | al.COL | | | LECTIV | | | E?NOTI | | | FICATI | | | ON?/ | | | 08/201 | | | 9 | | | 10:38? | | | MCFADDEN, | | | KENNET | | | H | | | J?MRN: | | | | | | [id number] | | | [id number] | | | riteri | | | a Met | | | 5 | | | Visits | | | In | | | 365 | | | DaysSe | | | curity | | | and | | | Safety | | | No | | | recent | | | | | | Securi | | | ty | | | Events | | | | | | curren | | | tly on | | | | | | fileED | | | Care | | | Guidel | | | inesTh | | | ere | | | are | | | curren | | | tly no | | | ED | | | Care | | | Guidel | | | codie | | | for | | | this | | | patien | | | t. | | | Please | | | check | | | your | | | facili | | | ty's | | | medica | | | l | | | record | | | s | | | system | | | .Presc | | | riptio | | | n Drug | | | | | | Report | | | (12 | | | Mo.)Rx | | | | | | Detail | | | sFill | | | Date | | | Drug | | | Descri | | | ption | | | Qty. | | | Prescr | | | iber | | | CS MED | | | | | | 2019-0 | | | 9-07 | | | HYDROC | | | ODONE- | | | ACETAM | | | IN | | | 5-325 | | | MG 14 | | | ESTEBAN | | | | | | HUNSAK | | | ER, MD | | | 2 35 | | | Rx | | | Summar | | | yMetri | | | c | | | Count | | | CS | | | II-V | | | Rx 1 | | | CS-II | | | Rx 1 | | | Quanti | | | ty | | | Dispen | | | sed 14 | | | | | | Unique | | | | | | Prescr | | | ibers | | | 1 | | | Unique | | | | | | Pharma | | | cies 1 | | | | | | Benzos | | | 0 | | | Opioid | | | s 1 | | | Long | | | Acting | | | | | | Opioid | | | s 0 | | | E.D. | | | Visit | | | Count | | | (12 | | | mo.)[facility] | | | cility | | | | | | Visits | | | | | | [facility] | | | al 16 | | | Total | | | 16 | | | Note: | | | Visits | | | | | | indica | | | te | | | total | | | known | | | visits | | | . | | | Recent | | | | | | Emerge | | | ncy | | | Depart | | | ment | | | Visit | | | [facility] | | | yShowi | | | ng 10 | | | most | | | recent | | | | | | visits | | | out | | | of 16 | | | in the | | | past | | | 12 | | | months | | | Date | | | Facili | | | ty | | | City | | | State | | | Type | | | Diagno | | | ses or | | | Chief | | | | | | Compla | | | int | | | Oct 8, | | | 2019 | | | [facility] [place] | [place] | | | Emerge | | | ncy | | | | | | Confus | | | ed, | | | sweati | | | ng, | | | jitter | | | s Sep | | | 3, | | | 2019 | | | [place] [facility] [place] [facility] 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 | | | Emerge | | | ncy | | | Leg | | | weakne | | | ss | | | Weakne | | | ss | | | Repeat | | | ed | | | falls | | | Bartolo | | | 8, | | | 2019 | | | [place] [facility] [place] [facility] [place] | | | Emerge | | | ncy | | | Edema | | | | | | Shortn | | | ess of | | | | | | Breath | | | | | | Pneumo | | | nitis | | | due to | | | | | | inhala | | | tion | | | of | | | food | | | and | | | vomit | | | Carl | | | 28, | | | 2019 | | | [place] [facility] [place] | | | Emerge | | | ncy | | | | | | diffic | | | ulity | | | breath | | | ing | | | | | | Weakne | | | ss | | | Altere | | | d | | | Mental | | | | | | Status | | | | | | Chroni | | | c | | | obstru | | | ctive | | | pulmon | | | yamilex | | | diseas | | | e with | | | | | | (acute | | | ) | | | exacer | | | bation | | | | | | Fever, | | | | | | unspec | | | ified | | | | | | Hypoma | | | gnesem | | | ia | | | Hematu | | | pratik, | | | unspec | | | ified | | | | | | Hypoxe | | | rinku | | | | | | Disori | | | entati | | | on, | | | unspec | | | ified | | | | | | Dehydr | | | ation | | | Carl | | | 26, | | | 2019 | | | [facility] [place] [facility] [place] | | | Emerge | | | ncy | | | Weak | | | Leg | | | | | | Swelli | | | ng | | | Weakne | | | ss | | | Locali | | | zed | | | enlarg | | | ed | | | lymph | | | nodes | | | May | | | 19, | | | 2019 | | | [facility] [place] | | | Emerge | | | ncy | | | | | | Passed | | | Out | | | Twice | | | today | | | | | | Syncop | | | e | | | Elevat | | | ed | | | Blood | | | Sugar | | | (Sympt | | | omatic | | | ) | | | Dehydr | | | ation | | | | | | Hypero | | | smolal | | | ity | | | and | | | hypern | | | atremi | | | a | | | Hyperg | | | lycemi | | | a, | | | unspec | | | ified | | | Apr | | | 19, | | | 2019 | | | [facility] [place] [facility] [place] | | | Emerge | | | ncy | | | | | | Altere | | | d | | | Hypoma | | | gnesem | | | ia | | | Pneumo | | | bebe, | | | unspec | | | ified | | | organi | | | sm | | | Sepsis | | | , | | | unspec | | | ified | | | organi | | | sm | | | Other | | | acute | | | kidney | | | | | | failur | | | e | | | Acute | | | respir | | | atory | | | failur | | | e with | | | | | | hypoxi | | | a Apr | | | 9, | | | 2019 | | | [facility] [facility] [place] [facility] 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 | | | Emerge | | | ncy | | | | | | Weakne | | | ss | | | Other | | | acute | | | kidney | | | | | | failur | | | e | | | Elevat | | | ed | | | white | | | blood | | | cell | | | count, | | | | | | unspec | | | ified | | | | | | Hypovo | | | lemia | | | | | | Other | | | hypote | | | nsion | | | | | | Recent | | | | | | Inpati | | | ent | | | Visit | | | [facility] | | | yDate | | | Facili | | | ty | | | City | | | State | | | Type | | | Diagno | | | ses or | | | Chief | | | | | | Compla | | | int | | | Sep 3, | | | 2019 | | | [facility] [place] [facility] 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 | | | e with | | | | | | (acute | | | ) | | | exacer | | | bation | | | | | | Hypoma | | | gnesem | | | ia | | | Urinar | | | y | | | tract | | | infect | | | ion, | | | site | | | not | | | specif | | | ied | | | | | | Hypoxe | | | rinku | | | | | | Pneumo | | | bebe, | | | unspec | | | ified | | | organi | | | sm | | | Fever, | | | | | | unspec | | | ified | | | | | | Dehydr | | | ation | | | | | | Hematu | | | pratik, | | | unspec | | | ified | | | | | | Disori | | | entati | | | on, | | | unspec | | | ified | | | | | | 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 | | | Clinic Administrator | | | al | | | Medici | | | ne | | | Hypero | | | smolal | | | ity | | | and | | | hypern | | | atremi | | | a | | | Hyperg | | | lycemi | | | a, | | | unspec | | | ified | | | | | | Dehydr | | | ation | | | Apr | | | 19, | | | 2019 | | | [facility] | | | ence | | | [facility] [place] [facility] [place] | | | [facility] | | | al | | | Servic | | | es | | | Septic | | | | | | Pneumo | | | bebe | | | Acute | | | | | | respir | | | atory | | | failur | | | e with | | | | | | hypoxi | | | a | | | Sepsis | | | , | | | unspec | | | ified | | | organi | | | sm | | | Severe | | | | | | sepsis | | | with | | | septic | | | shock | | | | | | Pneumo | | | bebe, | | | unspec | | | ified | | | organi | | | sm | | | Acute | | | kidney | | | | | | failur | | | e, | | | unspec | | | ified | | | | | | Long | | | term | | | (curre | | | nt) | | | use of | | | | | | insuli | | | n | | | Type 2 | | | | | | 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 | | | Clinic Administrator | | | al | | | Medici | | | ne | | | Elevat | | | ed | | | white | | | blood | | | cell | | | count, | | | | | | unspec | | | ified | | | | | | Other | | | acute | | | kidney | | | | | | failur | | | e | | | Hypovo | | | lemia | | | | | | Other | | | hypote | | | nsion | | | | | | Acute | | | kidney | | | | | | failur | | | e, | | | unspec | | | ified | | | Feb | | | 19, | | | 2019 | | | [facility] [place] [facility] [place] | | | Clinic Administrator | | | al | | | Medici | | | ne | | | Lobar | | | pneumo | | | bebe, | | | unspec | | | ified | | | organi | | | sm | | | Disord | | | er of | | | kidney | | | and | | | ureter | | | , | | | unspec | | | ified | | | Care | | | TeamPr | | | ovider | | | | | | Specia | | | lty | | | Phone | | | Fax | | | Servic | | | e | | | Dates | | | KILBOU | | | RN, | | | HORACIO | | | S , | | | D.O. | | | Family | | | | | | Medici | | | ne | | | Curren | | | t | | | KILBOU | | | RN, | | | HORACIO | | | S | | | Primar | | | y Care | | | [phone]) | | | | | | [phone] | | | [phone] | | | [phone] | | | [phone] | | | 20 | | | Curren | | | t | | | [facility] | | | tive | | | Portal | | | This | | | patien | | | t has | | | regist | | | ered | | | at the | | | | | | [facility] | | | al | | | Emerge | | | ncy | | | Depart | | | ment | | | For | | | more | | | inform | | | ation | | | visit: | | | | | | https: | | | //secu | | | re.col | | | lectiv | | | emedic | | | al.com | | | /notif | | | [id number] | | | [id number] | | | [id number] | | | [id number] | | | [id number] | | | [id number] | | | 8b | | | PLEASE | | | NOTE: | | | 1. | | | Any | | | care | | | recomm | | | endati | | | ons | | | and | | | other | | | clinic | | | al | | | inform | | | ation | | | are | | | provid | | | ed as | | | guidel | | | codie | | | or for | | | | | | histor | | | ical | | | purpos | | | es | | | only, | | | and | | | provid | | | ers | | | should | | | | | | exerci | | | se | | | their | | | own | | | clinic | | | al | | | judgme | | | nt | | | when | | | provid | | | ing | | | care. | | | 2. | | | You | | | may | | | only | | | use | | | this | | | inform | | | ation | | | for | | | purpos | | | es of | | | treatm | | | ent, | | | paymen | | | t or | | | health | | | care | | | operat | | | ions | | | activi | | | ties, | | | and | | | subjec | | | t to | | | the | | | limita | | | tions | | | of | | | applic | | | able | | | Col[facility] | | | tive | | | Polici | | | es. | | | 3. | | | You | | | should | | | | | | consul | | | t | | | direct | | | ly | | | with | | | the | | | organi | | | zation | | | that | | | provid | | | ed a | | | care | | | guidel | | | ine or | | | other | | | | | | clinic | | | al | | | histor | | | y with | | | any | | | questi | | | ons | | | about | | | additi | | | onal | | | inform | | | ation | | | or | | | accura | | | cy or | | | comple | | | teness | | | of | | | inform | | | ation | | | provid | | | ed.? | | | 2019 | | | [facility] | | | tive | | | Medica | | | l | | | Techn[employer] | | | logies | | | , Inc[employer] | | | - | | | [email or web address] | | | llecti | | | vemedi | | | [email or web address] | | | m | +---+--------+ + +--------+ +---+ + | ECG - EXTERNAL SCAN | | 12/15/2018 | | Results for this | | | | 12:00 AM | | procedure are in the | | | | PDT | | results section. | + +--------+ +---+ + | POC GLUCOSE | Routin | 12/12/2018 | | Results for this | | | e | 7:32 AM | | procedure are in the | | | | PDT | | results section. | + +--------+ +---+ + | BASIC METABOLIC | Routin | 12/12/2018 | | Results for this | | PANEL | e | 6:35 AM | | procedure are in the | | | | PDT | | results section. | + +--------+ +---+ + | POC GLUCOSE | Routin | 12/11/2018 | | Results for this | | | e | 8:17 PM | | procedure are in the | | | | PDT | | results section. | + +--------+ +---+ + | POC GLUCOSE | Routin | 12/11/2018 | | Results for this | | | e | 4:34 PM | | procedure are in the | | | | PDT | | results section. | + +--------+ +---+ + | POC GLUCOSE | Routin | 12/11/2018 | | Results for this | | | e | 11:35 AM | | procedure are in the | | | | PDT | | results section. | + +--------+ +---+ + | POC GLUCOSE | Routin | 12/11/2018 | | Results for this | | | e | 7:33 AM | | procedure are in the | | | | PDT | | results section. | + +--------+ +---+ + | BASIC METABOLIC | Routin | 12/11/2018 | | Results for this | | PANEL | e | 5:20 AM | | procedure are in the | | | | PDT | | results section. | + +--------+ +---+ + | CBC WITH | Routin | 12/11/2018 | | Results for this | | DIFFERENTIAL | e | 5:20 AM | | procedure are in the | | | | PDT | | results section. | + +--------+ +---+ + | POC GLUCOSE | Routin | 12/10/2018 | | Results for this | | | e | 8:48 PM | | procedure are in the | | | | PDT | | results section. | + +--------+ +---+ + | POC GLUCOSE | Routin | 12/10/2018 | | Results for this | | | e | 4:41 PM | | procedure are in the | | | | PDT | | results section. | + +--------+ +---+ + | POC GLUCOSE | Routin | 12/10/2018 | | Results for this | | | e | 11:23 AM | | procedure are in the | | | | PDT | | results section. | + +--------+ +---+ + | POC GLUCOSE | Routin | 12/10/2018 | | Results for this | | | e | 7:22 AM | | procedure are in the | | | | PDT | | results section. | + +--------+ +---+ + | T4, FREE | Routin | 12/10/2018 | | Results for this | | | e | 5:37 AM | | procedure are in the | | | | PDT | | results section. | + +--------+ +---+ + | TSH, REFLEX FREE T4 | Routin | 12/10/2018 | | Results for this | | | e | 5:37 AM | | procedure are in the | | | | PDT | | results section. | + +--------+ +---+ + | SLIDE REVIEW, | Routin | 12/10/2018 | | Results for this | | PERIPHERAL SMEAR | e | 5:35 AM | | procedure are in the | | | | PDT | | results section. | + +--------+ +---+ + | MAGNESIUM | Routin | 12/10/2018 | | Results for this | | | e | 5:35 AM | | procedure are in the | | | | PDT | | results section. | + +--------+ +---+ + | PHOSPHORUS | Routin | 12/10/2018 | | Results for this | | | e | 5:35 AM | | procedure are in the | | | | PDT | | results section. | + +--------+ +---+ + | CALCIUM, IONIZED | Routin | 12/10/2018 | | Results for this | | | e | 5:35 AM | | procedure are in the | | | | PDT | | results section. | + +--------+ +---+ + | BASIC METABOLIC | Routin | 12/10/2018 | | Results for this | | PANEL | e | 5:35 AM | | procedure are in the | | | | PDT | | results section. | + +--------+ +---+ + | CBC WITH | Routin | 12/10/2018 | | Results for this | | DIFFERENTIAL | e | 5:35 AM | | procedure are in the | | | | PDT | | results section. | + +--------+ +---+ + | POC GLUCOSE | Routin | 12/09/2018 | | Results for this | | | e | 9:21 PM | | procedure are in the | | | | PDT | | results section. | + +--------+ +---+ + | POC GLUCOSE | Routin | 12/09/2018 | | Results for this | | | e | 5:01 PM | | procedure are in the | | | | PDT | | results section. | + +--------+ +---+ + | KETONES,SERUM | Routin | 12/09/2018 | | Results for this | | | e | 1:49 PM | | procedure are in the | | | | PDT | | results section. | + +--------+ +---+ + | POC GLUCOSE | Routin | 12/09/2018 | | Results for this | | | e | 12:30 PM | | procedure are in the | | | | PDT | | results section. | + +--------+ +---+ + | KETONES,SERUM | Routin | 12/09/2018 | | Results for this | | | e | 8:20 AM | | procedure are in the | | | | PDT | | results section. | + +--------+ +---+ + | POC GLUCOSE | Routin | 12/09/2018 | | Results for this | | | e | 7:55 AM | | procedure are in the | | | | PDT | | results section. | + +--------+ +---+ + | TROPONIN I | Routin | 12/09/2018 | | Results for this | | | e | 5:32 AM | | procedure are in the | | | | PDT | | results section. | + +--------+ +---+ + | PROTIME INR | Routin | 12/09/2018 | | Results for this | | | e | 5:32 AM | | procedure are in the | | | | PDT | | results section. | + +--------+ +---+ + | MAGNESIUM | Routin | 12/09/2018 | | Results for this | | | e | 5:32 AM | | procedure are in the | | | | PDT | | results section. | + +--------+ +---+ + | CBC NO DIFFERENTIAL | Routin | 12/09/2018 | | Results for this | | | e | 5:32 AM | | procedure are in the | | | | PDT | | results section. | + +--------+ +---+ + | BASIC METABOLIC | Routin | 12/09/2018 | | Results for this | | PANEL | e | 5:32 AM | | procedure are in the | | | | PDT | | results section. | + +--------+ +---+ + | TROPONIN I | Routin | 12/08/2018 | | Results for this | | | e | 10:09 PM | | procedure are in the | | | | PDT | | results section. | + +--------+ +---+ + | BLOOD GAS, VENOUS | Routin | 12/08/2018 | | Results for this | | | e | 10:09 PM | | procedure are in the | | | | PDT | | results section. | + +--------+ +---+ + | KETONES,SERUM | Routin | 12/08/2018 | | Results for this | | | e | 10:09 PM | | procedure are in the | | | | PDT | | results section. | + +--------+ +---+ + | PHOSPHORUS | Routin | 12/08/2018 | | Results for this | | | e | 10:09 PM | | procedure are in the | | | | PDT | | results section. | + +--------+ +---+ + | MAGNESIUM | Routin | 12/08/2018 | | Results for this | | | e | 10:09 PM | | procedure are in the | | | | PDT | | results section. | + +--------+ +---+ + | BASIC METABOLIC | Routin | 12/08/2018 | | Results for this | | PANEL | e | 10:09 PM | | procedure are in the | | | | PDT | | results section. | + +--------+ +---+ + | ED INFORMATION | Routin | 12/08/2018 | | | | EXCHANGE | e | 6:10 PM | | | | | | PDT | | | + +--------+ +---+ + +---+--------+ | | | | | Proced | | | ure | | | Note - | | | Osito, | | | Lab In | | | | | | Hlseve | | | n - | | | | | | 2018 | | | 6:11 | | | PM PDT | | | | | | Format | | | ting | | | of | | | this | | | note | | | might | | | be | | | differ | | | ent | | | from | | | the | | | origin | | | al.COL | | | LECTIV | | | E?NOTI | | | FICATI | | | ON?/ | | | | | | 9 | | | 18:09? | | | MCFADDEN, | | | KENNET | | | H | | | J?MRN: | | | | | | [id number] | | | [id number] | | | riteri | | | a Met | | | 5 | | | Visits | | | In | | | 365 | | | DaysSe | | | curity | | | and | | | Safety | | | No | | | recent | | | | | | Securi | | | ty | | | Events | | | | | | curren | | | tly on | | | | | | fileED | | | Care | | | Guidel | | | inesTh | | | ere | | | are | | | curren | | | tly no | | | ED | | | Care | | | Guidel | | | codie | | | for | | | this | | | patien | | | t. | | | Please | | | check | | | your | | | facili | | | ty's | | | medica | | | l | | | record | | | s | | | system | | | .Presc | | | riptio | | | n Drug | | | | | | Report | | | (12 | | | Mo.)PD | | | MP | | | query | | | found | | | no | | | report | | | .E.D. | | | Visit | | | Count | | | (12 | | | mo.)Fa | | | cility | | | | | | Visits | | | | | | [facility] | | | al 16 | | | Total | | | 16 | | | Note: | | | Visits | | | | | | indica | | | te | | | total | | | known | | | visits | | | . | | | Recent | | | | | | Emerge | | | ncy | | | Depart | | | ment | | | Visit | | | [facility] | | | yShowi | | | ng 10 | | | most | | | recent | | | | | | visits | | | out | | | of 16 | | | in the | | | past | | | 12 | | | months | | | Date | | | Facili | | | ty | | | City | | | State | | | Type | | | Diagno | | | ses or | | | Chief | | | | | | Compla | | | int | | | Sep 3, | | | 2019 | | | [facility] [place] | | | Emerge | | | ncy | | | High | | | Blood | | | Sugar | | | Bartolo | | | 29, | | | 2019 | | | [facility] [place] | | | Emerge | | | ncy | | | Leg | | | weakne | | | ss | | | Weakne | | | ss | | | Repeat | | | ed | | | falls | | | Bartolo | | | 8, | | | 2019 | | | [facility] [place] | | | Emerge | | | ncy | | | Edema | | | | | | Shortn | | | ess of | | | | | | Breath | | | | | | Pneumo | | | nitis | | | due to | | | | | | inhala | | | tion | | | of | | | food | | | and | | | vomit | | | Carl | | | 28, | | | 2019 | | | [facility] [place] | | | Emerge | | | ncy | | | | | | diffic | | | ulity | | | breath | | | ing | | | | | | Weakne | | | ss | | | Altere | | | d | | | Mental | | | | | | Status | | | | | | Chroni | | | c | | | obstru | | | ctive | | | pulmon | | | yamilex | | | diseas | | | e with | | | | | | (acute | | | ) | | | exacer | | | bation | | | | | | Fever, | | | | | | unspec | | | ified | | | | | | Hypoma | | | gnesem | | | ia | | | Hematu | | | pratik, | | | unspec | | | ified | | | | | | Hypoxe | | | rinku | | | | | | Disori | | | entati | | | on, | | | unspec | | | ified | | | | | | Dehydr | | | ation | | | Carl | | | 26, | | | 2019 | | | [facility] [place] | | | Emerge | | | ncy | | | Weak | | | Leg | | | | | | Swelli | | | ng | | | Weakne | | | ss | | | Locali | | | zed | | | enlarg | | | ed | | | lymph | | | nodes | | | May | | | 19, | | | 2019 | | | [facility] [facility] [place] | [place] | | | Emerge | | | ncy | | | | | | Passed | | | Out | | | Twice | | | today | | | | | | Syncop | | | e | | | Elevat | | | ed | | | Blood | | | Sugar | | | (Sympt | | | omatic | | | ) | | | Dehydr | | | ation | | | | | | Hypero | | | smolal | | | ity | | | and | | | hypern | | | atremi | | | a | | | Hyperg | | | lycemi | | | a, | | | unspec | | | ified | | | Apr | | | 19, | | | 2019 | | | [facility] [place] [facility] [place] | | | Emerge | | | ncy | | | | | | Altere | | | d | | | Hypoma | | | gnesem | | | ia | | | Pneumo | | | bebe, | | | unspec | | | ified | | | organi | | | sm | | | Sepsis | | | , | | | unspec | | | ified | | | organi | | | sm | | | Other | | | acute | | | kidney | | | | | | failur | | | e | | | Acute | | | respir | | | atory | | | failur | | | e with | | | | | | hypoxi | | | a Apr | | | 9, | | | 2019 | | | [facility] [place] [facility] 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 | | | Emerge | | | ncy | | | | | | Weakne | | | ss | | | Other | | | acute | | | kidney | | | | | | failur | | | e | | | Elevat | | | ed | | | white | | | blood | | | cell | | | count, | | | | | | unspec | | | ified | | | | | | Hypovo | | | lemia | | | | | | Other | | | hypote | | | nsion | | | Mar | | | 31, | | | 2019 | | | [facility] [place] [facility] [place] | | | Emerge | | | ncy | | | | | | Diarrh | | | ea | | | Diarrh | | | ea | | | (Adult | | | ) | | | Noninf | | | ective | | | | | | gastro | | | enteri | | | tis | | | and | | | coliti | | | s, | | | unspec | | | ified | | | | | | Recent | | | | | | Inpati | | | ent | | | Visit | | | [facility] | | | yDate | | | Facili | | | ty | | | City | | | State | | | Type | | | Diagno | | | ses or | | | Chief | | | | | | Compla | | | int | | | Bartolo 8, | | | 2019 | | | [facility] [place] [facility] 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 | | | e with | | | | | | (acute | | | ) | | | exacer | | | bation | | | | | | Hypoma | | | gnesem | | | ia | | | Urinar | | | y | | | tract | | | infect | | | ion, | | | site | | | not | | | specif | | | ied | | | | | | Hypoxe | | | rinku | | | | | | Pneumo | | | bebe, | | | unspec | | | ified | | | organi | | | sm | | | Fever, | | | | | | unspec | | | ified | | | | | | Dehydr | | | ation | | | | | | Hematu | | | pratik, | | | unspec | | | ified | | | | | | Disori | | | entati | | | on, | | | unspec | | | ified | | | | | | 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 [facility] [place] | [place] | | | [facility] Administrator | | | al | | | Medici | | | ne | | | Hypero | | | smolal | | | ity | | | and | | | hypern | | | atremi | | | a | | | Hyperg | | | lycemi | | | a, | | | unspec | | | ified | | | | | | Dehydr | | | ation | | | Apr | | | 19, | | | 2019 | | | Provid | | | ence | | | [facility] [place] | | | [place] | | | S[facility]ic | | | al | | | Servic | | | es | | | Septic | | | | | | Pneumo | | | bebe | | | Acute | | | | | | respir | | | atory | | | failur | | | e with | | | | | | hypoxi | | | a | | | Sepsis | | | , | | | unspec | | | ified | | | organi | | | sm | | | Severe | | | | | | sepsis | | | with | | | septic | | | shock | | | | | | Pneumo | | | bebe, | | | unspec | | | ified | | | organi | | | sm | | | Acute | | | kidney | | | | | | failur | | | e, | | | unspec | | | ified | | | | | | Long | | | term | | | (curre | | | nt) | | | use of | | | | | | insuli | | | n | | | Type 2 | | | | | | 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 [place] [facility] [place] 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 [place] [facility] [place] | [place] | | | [facility] Administrator | | | al | | | Medici | | | ne | | | Elevat | | | ed | | | white | | | blood | | | cell | | | count, | | | | | | unspec | | | ified | | | | | | Other | | | acute | | | kidney | | | | | | failur | | | e | | | Hypovo | | | lemia | | | | | | Other | | | hypote | | | nsion | | | | | | Acute | | | kidney | | | | | | failur | | | e, | | | unspec | | | ified | | | Feb | | | 19, | | | 2019 | | | [facility] [place] [place] | [place] | | | [facility] Administrator | | | al | | | Medici | | | ne | | | Lobar | | | pneumo | | | bebe, | | | unspec | | | ified | | | organi | | | sm | | | Disord | | | er of | | | kidney | | | and | | | ureter | | | , | | | unspec | | | ified | | | Oct | | | 5, | | | 2018 | | | [facility] [place] [facility] 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 | | | e with | | | | | | (acute | | | ) | | | exacer | | | bation | | | | | | Weakne | | | ss | | | Pneumo | | | bebe, | | | unspec | | | ified | | | organi | | | sm | | | Care | | | TeamPr | | | ovider | | | PRC | | | Type | | | Phone | | | Fax | | | Servic | | | e | | | Dates | | | KILBOU | | | RN, | | | HORACIO | | | S , | | | D.O. | | | Family | | | | | | Medici | | | ne | | | Curren | | | t | | | KILBOU | | | RN | | | HORACIO | | | S | | | Primar | | | y Care | | | | | | [phone] | | [phone] | | | Curren | | | t | | | Collec | | | tive | | | Portal | | | This | | | patien | | | t has | | | regist | | | ered | | | at the | | | | | | [facility] | | | al | | | Emerge | | | ncy | | | Depart | | | ment | | | For | | | more | | | inform | | | ation | | | visit: | | | | | | https: | | | //secu | | | [email or web address] | | | lectiv | | | emedic | | | [email or web address] | | | /notif | | | [id number] | | | [email or web address] | | | [email or web address] | | | [phone] | | | [id number] | | | [id number] | | | 11 | | | PLEASE | | | NOTE: | | | 1. | | | Any | | | care | | | recomm | | | endati | | | ons | | | and | | | other | | | clinic | | | al | | | inform | | | ation | | | are | | | provid | | | ed as | | | guidel | | | codie | | | or for | | | | | | histor | | | ical | | | purpos | | | es | | | only, | | | and | | | provid | | | ers | | | should | | | | | | exerci | | | se | | | their | | | own | | | clinic | | | al | | | judgme | | | nt | | | when | | | provid | | | ing | | | care. | | | 2. | | | You | | | may | | | only | | | use | | | this | | | inform | | | ation | | | for | | | purpos | | | es of | | | treatm | | | ent, | | | paymen | | | t or | | | health | | | care | | | operat | | | ions | | | activi | | | ties, | | | and | | | subjec | | | t to | | | the | | | limita | | | tions | | | of | | | applic | | | able | | | Collec | | | tive | | | Polici | | | es. | | | 3. | | | You | | | should | | | | | | consul | | | t | | | direct | | | ly | | | with | | | the | | | organi | | | zation | | | that | | | provid | | | ed a | | | care | | | guidel | | | ine or | | | other | | | | | | clinic | | | al | | | histor | | | y with | | | any | | | questi | | | ons | | | about | | | additi | | | onal | | | inform | | | ation | | | or | | | accura | | | cy or | | | comple | | | teness | | | of | | | inform | | | ation | | | provid | | | ed.? | | | 2018 | | | Colle[facility] | | | tive | | | Medica | | | l | | | [employer] | | | logies | | | , Inc[employer] | | | - | | | [email or web address] | | | llecti | | | vemedi | | | [email or web address] | | | m | +---+--------+ + +--------+ + + + | URINALYSIS WITH | Routin | 12/08/2018 | Dysuria | Results for this | | MICROSCOPIC WITH | e | 12:36 PM | | procedure are in the | | CULTURE IF INDICATED | | PDT | | results section. | + +--------+ + + + | PSA, DIAGNOSTIC | Routin | 12/08/2018 | Preventative | Results for this | | | e | 12:30 PM | health care | procedure are in the | | | | PDT | | results section. | + +--------+ + + + | TSH | Routin | 12/08/2018 | Acquired | Results for this | | | e | 12:30 PM | hypothyroidism | procedure are in the | | | | PDT | | results section. | + +--------+ + + + | COMPREHENSIVE | Routin | 12/08/2018 | Mediastinal | Results for this | | METABOLIC PANEL | e | 12:30 PM | lymphadenopathy | procedure are in the | | | | PDT | | results section. | + +--------+ + + + | CBC WITH | Routin | 12/08/2018 | Mediastinal | Results for this | | DIFFERENTIAL | e | 12:30 PM | lymphadenopathy | procedure are in the | | | | PDT | | results section. | + +--------+ + + + | MS INJECT TRIGGER | Routin | 12/03/2018 | Sprain of | Results for this | | POINT, 1 OR 2 | e | 11:15 AM | ligaments of lumbar | procedure are in the | | MUSCLE(S) | | PDT | spine, sequela | results section. | | | | | Chronic low back | | | | | | pain without | | | | | | sciatica, | | | | | | unspecified back | | | | | | pain laterality | | + +--------+ + + + from Last 3 Months Results Urinalysis with Microscopic with Culture if Indicated (01/12/2019 11:43 AM PDT)Only the mos t recent of 2 results within the time period is included. + + + + + + | [...] - 1.030 | [facility] | | | [place] | | | [facility] | | | [...] + + | [facility] | [address] | [place] [address] | [phone] | | [facility] | | | [...] | Buprenorphi | Negative | Negative | [facility] | [...] emergency medical use only. Not | [facility] | | intended for legal purposes. Chain of Custody not maintained. | HOSPITAL | | Confirmation of Positive results must be ordered by the attending | LABORATORY | | physician. Zbkp-cwy-doumcey drugs may cross react with some methods. [...] + + | [facility] | [address] | [place] [address] | [phone] | | [facility] | | | | + + + + + CBC with Differential (01/12/2019 11:38 AM PDT)Only the most recent of 4 results within the time period is included. + + + + + + | [...] + + | [facility] | [address] | [place] [address] | [phone] | | [facility] | | | | + + + + + TSH (01/12/2019 11:38 AM PDT)Only the most recent of 2 results within the time period is in cluded. + + + + + + | [...] + + + + + | [facility] | [address] | [place] [address] | [phone] | | [facility] | | | | + + + + + T4, Free (01/12/2019 11:38 AM PDT)Only the most recent of 2 results within the time period is included. + +---------+ + + + | Component [...] + + | [facility] | [address] | [place] [address] | [phone] | | [facility] | | | | + + + + + Comprehensive Metabolic Panel (01/12/2019 11:38 AM PDT)Only the most recent of 2 results wi thin the time period is included. + + + + + + | [...] | mL/min/1.73m2 | [facility] | | | [facility] | RATE,ESTIMATED | | [facility] | | | | mL/min/1.25r3Emnh than | | LAB[facility]ATORY | | | [...] + + | [facility] | [address] | [place] [address] | [phone] | | [facility] | | | | + + + + + ECG - EXTERNAL SCAN (12/15/2018 12:00 AM PDT) + + + | Narrative | Performed At | + + + | Ordered by an | | | unspecified provider. | | + + + POC Glucose (12/12/2018 7:32 AM PDT)Only the most recent of 13 results within the time per iod is included. + +---------+ + + + | Component | Value | Ref Range | Performed | Pathologist | | | | | At | Signature | + +---------+ + + + | Glucose, | 240 (H) | 70 - 110 mg/dL | [...] + + | [facility] | [address] | [place] [address] | [phone] | | [facility] | | | | + + + + + Basic Metabolic Panel (12/12/2018 6:35 AM PDT)Only the most recent of 5 results within the time period is included. + + + + + + | Component | Value | Ref Range | Performed | Pathologist | | | | | At | Signature | + + + + + + | Na | 136 | 132 - 143 | [facility] | | | | | mmol/L | [facility] | [facility] | | | | | | [facility] | | + + + + + + | K | 4.1 | 3.3 - 4.9 | [facility] | | | | | mmol/L | [facility] | | | | | [facility] | | | | | | [facility] | | + + + + + + | Cl | 101 | 95 - 108 mmol/L | [facility] [...] Gap | 10 | 7 - 16 mmol/L | [facility] | | | | | | [facility] | | | | | | [facility] | | + + + + + + | Glucose | 271 (H) | 70 - 110 mg/dL | [facility] | | | | [facility] | | | | | | [facility] | | + + + + + + | BUN | 30 (H) | 5 - 26 mg/dL | [facility] | | | | | [facility] | | | | [facility] | | | | | | [facility] | | + + + + + + | Creatinine | 0.87 | 0.70 - 1.40 | [facility] | | | | | mg/dL | [facility] | | | | | [facility] | | | | | | [facility] | | + + + + + + | eGFR if not | >60 | >=60 | [facility] | | | | | mL/min/1.73m2 | [facility] | | | [facility] | | | | | | [facility] | | + + + + + + | Calcium | 9.0 | 8.3 - 10.0 | [facility] | | | | | mg/dL | [facility] | [facility] | [facility] | | | | | | [facility] | | + + + + + + | BUN/Creatin | 34.5 (H) | 7.0 - 24.0 | [facility] | [...] + + | [facility] | [address] | [place] [address] | [phone] | | [facility] | | | | + + + + + TSH, Reflex Free T4 (12/10/2018 5:37 AM PDT) + + + + + + | Component | Value | Ref Range | Performed | Pathologist | | | | | At | Signature | + + + + + + | TSH | 0.01 (L) | 0.36 - 3.74 | [facility] | | | | | uIU/mL | [facility] | | | | | [...] + + | [facility] | [address] | [place] [address] | [phone] | | [facility] | | | | + + + + + Slide Review, Peripheral Smear (12/10/2018 5:35 AM PDT) + +---------+ + + + | Component | Value | Ref Range | Performed | Pathologist | | | | | At | Signature | + +---------+ + + + | RBC | Normal | | [facility] | | | Morphology | | | [facility] | | | | | [facility] | | | | | | [facility] | | + +---------+ + + + | Hypersegmen | Present | | [facility] | | | rosemarie | | | [facility] | | | Neutrophils | | | [facility] | | | | | | [facility] | | + +---------+ + + + | Clumped | Present | | [facility] | | | Platelets | | | [facility] | | | [...] + + | [facility] | [address] | [place] [address] | [phone] | | [facility] | | | | + + + + + Phosphorus (12/10/2018 5:35 AM PDT)Only the most recent of 2 results within the time perio d is included. + +-------+ + + + | Component | Value | Ref Range | Performed | Pathologist | | | | | At | Signature | + +-------+ + + + | Phosphorus | 3.9 | 2.5 - 4.9 mg/dL | [facility] | | | | [...] + + | [facility] | [address] | [place] [address] | [phone] | | [facility] | | | | + + + + + Magnesium (12/10/2018 5:35 AM PDT)Only the most recent of 3 results within the time period is included. + +-------+ + + + | Component | Value | Ref Range | Performed | Pathologist | | | | | At | Signature | + +-------+ + + + | Magnesium | 1.9 | 1.8 - 2.4 mg/dL | [facility] | | | | [...] + + | [facility] | [address] | [place] [address] | [phone] | | [facility] | | | | + + + + + Calcium, Ionized (12/10/2018 5:35 AM PDT) + +-------+ + + + | Component | Value | Ref Range | Performed | Pathologist | | | | | At | Signature | + +-------+ + + + | Calcium, | 1.21 | 1.17 - 1.32 | [facility] | | | Ionized | | mmol/L | [facility] | | [...] + + | [facility] | [address] | [place] [address] | [phone] | | [facility] | | | | + + + + + Ketones, Serum (12/09/2018 1:49 PM PDT)Only the most recent of 3 results within the time julian ashby is included. + + + + + + | Component | Value | Ref Range | Performed | Pathologist | | | | | At | Signature | + + + + + + | Acetone, | 0.2Comment: This is a | <0.6 mmol/L | [facility] | | | Serum Quant | corrected result. | | [facility] | | | | Previous result was 2.1 | | [facility]OSPITAL | | | | mmol/L on 12/09/2018 at | | LABORATORY | | | | 1352 PDT. | | | | + + + + + + + + | Specimen | + + | Blood | + + + + + + + | Performing | Address | City/State/Zipcode | Phone Number | | Organization | | | | + + + + + | [facility] | [address] | [place] [address] | [phone] | | [facility] | | | | + + + + + Troponin I (12/09/2018 5:32 AM PDT)Only the most recent of 2 results within the time panda pillai is included. + +-------+ + + + | Component | Value | Ref Range | Performed | Pathologist | | | | | At | Signature | + +-------+ + + + | Troponin I | <0.02 | 0.02 - 0.10 | [facility] | | | | | ng/mL ng/mL | [facility] | | | | | [facility] | | | | | | [facility] | | + +-------+ + + + + + | Specimen | + + | Blood | + + + + + | Narrative | Performed At | + + + | In patients with acute coronary syndromes such as unstable angina or | [facility] | | non-Q wave myocardial infarction, cardiac troponin I levels provide | HOSPITAL | | useful prognostic information and aid in early detection of such | LAB[facility]AT[facility] | | patients with an increased risk of . The Risk Stratification | | | cutpoint for the Troponin I method is 0.1 ng/mL. The diagnostic | | | cutoff point for the diagnosis of ME is 0.8 ng/mL for the Troponin I | | | method. | | + + + + + + + + | Performing | Address | City/State/[facility] | Phone Number | | Organization | | | | + + + + + | [facility] | [address] | [place] [address] | [phone] | | [facility] | | | | + + + + + Protime INR (12/09/2018 5:32 AM PDT) + +-------+ + + + | Component | Value | Ref Range | Performed | Pathologist | | | | | At | Signature | + +-------+ + + + | Prothrombin | 10.9 | 9.3 - 11.4 | [facility] | | | Time | | seconds | [facility] | | | | | [facility] | | | | | | [facility] | | + +-------+ + + + | INR | 1.1 | 0.8 - 1.2 | [facility] | | | | | [facility] | [facility] | | | | | | [facility] | | + +-------+ + + + + + | Specimen | + + | Blood | + + + + + | Narrative | Performed At | + + + | INR Therapeutic Range: INR: 2.0-3.0 CONVENTIONAL ANTICOAGULATION | [facility] | | INR: 2.5-3.5 INTENSIVE ANTICOAGULATION | HOSPITAL | | | LAB[facility]ATORY | + + + + + + + + | Performing | Address | City/State/Zipcode | Phone Number | | Organization | | | | + + + + + | [facility] | [address] | [place] [address] | [phone] | | [facility] | | | | + + + + + CBC no Differential (12/09/2018 5:32 AM PDT) + + + + + + | Component | Value | Ref Range | Performed | Pathologist | | | | | At | Signature | + + + + + + | WBC | 11.0 (H) | 4.6 - 10.5 K/uL | [facility] | | | | [facility] | | | | | | [facility] | | + + + + + + | RBC | 4.67 | 4.36 - 5.83 | [facility] | | | | | M/uL | [facility] | [facility] | | | | | | [facility] | | + + + + + + | Hemoglobin | 13.7 | 13.1 - 17.4 | [facility] | | | | | g/dL | [facility] | | | | | [facility] | | | | | | [facility] | | + + + + + + | Hematocrit | 38.9 (L) | 39.0 - 51.9 % | [facility] | | | | | [facility] | | | | | | [facility] | | + + + + + + | MCV | 83.3 | 82.0 - 96.0 fL | [facility] | | | | | [facility] | | | | | | [facility] | | + + + + + + | MCH | 29.3 | 27.7 - 32.3 pg | [facility] | | | | | [facility] | | | | | | [facility] | | + + + + + + | MCHC | 35.2 | 32.0 - 36.9 | [facility] | | | | | g/dL | [facility] | | | | | | [facility] | | + + + + + + | RDW-CV | 14.5 | 0.0 - 17.0 % | [facility] | | | | | [facility] | [facility] | [facility] | | | | | | [facility] | | + + + + + + | Platelet | 181 | 150 - 450 K/uL | [facility] | | | Count | | | [facility] | | | | | [facility] | | | | | | [facility] | | + + + + + + | MPV | 11.6 | 9.4 - 12.4 fL | [facility] [...] + + + + + | [facility] | [address] | [place] [address] | [phone] | | [facility] | | | | + + + + + Blood Gas, Venous (12/08/2018 10:09 PM PDT) + +--------+ + + + | Component | Value | Ref Range | Performed | Pathologist | | | | | At | Signature | + +--------+ + + + | pH, Venous | 7.43 | 7.33 - 7.43 | [facility] | | | | [facility] | | | | | | [facility] | | + +--------+ + + + | pCO2, | 33 (L) | 41 - 54 mm Hg | [facility] | | | Venous | | | [facility] | | | | | [facility] | | | | | | [facility] | | + +--------+ + + + | pO2, Venous | 81 | Reference Range | [facility] | | | | | Not | [facility] | | | | | Established mm | [facility]OSPITAL | | | | | Hg | LAB[facility]ATORY | | + +--------+ + + + | HCO3, | 21.8 | 17.0 - 28.0 | [facility] | | | Venous | | mmol/L | [facility] | | | | | [facility] | | | | | | [facility] | | + +--------+ + + + | Base | -1.8 | -2.4 - 2.3 | [facility] | | | Excess, | | mmol/L | [facility] | | | Venous | | | [facility] | | | | | | [facility] | | + +--------+ + + + + + | Specimen | + + | Blood | + + + + + + + | Performing | Address | City/State/Zipcode | Phone Number | | Organization | | | | + + + + + | [facility] | [address] | [place] [address] | [phone] | | [facility] | | | | + + + + + PSA, Diagnostic (12/08/2018 12:30 PM PDT) + +-------+ + + + | Component | Value | Ref Range | Performed | Pathologist | | | | | At | Signature | + +-------+ + + + | PSA | 0.50 | 0.01 - 4.00 | [facility] | | | | | ng/mL | [facility] | [facility] | [facility] | | | | | | [facility] | | + +-------+ + + + + + | Specimen | + + | Blood | + + + + + | Narrative | Performed At | + + + | PSA, TOTAL PERFORMED ON ConspireAUR XP. TEST RESULT MAY NOT | [facility] | | CORRELATE WITH OTHER INSTRUMENTS. | HOSPITAL | | | LAB[facility]ATORY | + + + + + + + + | Performing | Address | City/State/Zipcode | Phone Number | | Organization | | | | + + + + + | [facility] | [address] | [place] [address] | [phone] | | [facility] | | | | + + + + + Trigger Point Injection Procedure (12/03/2018 11:15 AM PDT) + + + | Narrative | Performed At | + + + | Jalyn Carias MD 12/03/2018 11:26 Geraldo Mcfadden is a 78 | | | y.o. male right handed seen for neurologic evaluation with | | | history of chronic , persistent low back pain with acute | | | exacerbation with prominent spasms and pain. he received a | | | trigger point injection today in the bilateral paraspinal L5/S1 and | | | bilateral posterior superior iliac spine muscles. He initially | | | received Lidocaine 1 % and once tolerated, given a combination of | | | Marcaine 5 % and Depomedrol. A total of depomedrol 10 ml, 40 mg/ml | | | were injected. he did not experience palpitations, diaphoresis, | | | chest pain, or near syncopal symptoms. It is medically necessary | | | he receives another trigger point injection in 4-5 months if his | | | symptoms recur to improve her quality of life and activities of | | | daily living. he was advised to place a warm compress in the | | | injected areas , 20 mins on and 20 mins off, for a couple of hours, | | | 2-3 times a day. He was given Toradol 60 mg IM for intractable | | | low back pain, pain scale 7 | | | | | | 8/10 I advised the patient to call for any side effects or | | | questions. Thank you for allowing us in participating in the care | | | of your patient. Sincerely, JALYN CARIAS M.D. | | | Neurologist [phone] Electronically signed NOTE: Part of | | | this report was transcribed using voice recognition | | | software. Every effort was made to ensure | | | accuracy. However, inadvertent computerize | | | gis administrator errors may be present | | + + + from Last 3 Months Additional Health Concerns + + + + | Infection | Noted Time | Resolved Time | + + + + | Methicillin-resistant Staphylococcus aureus | 07/20/2018 4:00 PM | | | | PDT | | + + + + Insurance + +--------+ +--------+ +---------+--------+ | Payer | Benefi | Subscriber | Effect | Phone | Address | Type | | | t Plan | ID | laith | | | | | | / | | Dates | | | | | | Group | | | | | | + +--------+ +--------+ +---------+--------+ | [employer] [place] | [id number] | 01/29/ | | | Indemn | | | CHOICE | | 2017-P | | | ity | | | PC3 | | resent | | | | + +--------+ +--------+ +---------+--------+ | [employer] | [employer] | [id number] | 01/29/ | | | Indemn | | | NS | | 2016-P | | | ity | | | ADMIN | | resent | | | | | | [place] | | | | | | | | [place] | | | | | | + +--------+ +--------+ +---------+--------+ | MEDICARE | [employer] | [id number] | 03/19/ | [phone] | | Medica | | | RE | | 2016-P | 5 | | re | | | PART A | | resent | | | | + +--------+ +--------+ +---------+--------+ | MEDICARE | [employer] | [id number] | 06/06/19 | [phone] | | Medica | | | RE | | 04-Pre | 5 | | re | | | PART A | | sent | | | | + +--------+ +--------+ +---------+--------+ | [employer] ADMIN | V[facility]ERA | [id number] | | | | Indemn | | | NS | | 013-Pr | | | ity | | | ADMIN | | esent | | | | | | [place] | | | | | | | | E | | | | | | + +--------+ +--------+ +---------+--------+ + +--------+ +--------+ + + | Guarantor Name | Accoun | Relation to | Date | Phone | Billing Address | | | t Type | Patient | of | | | | | | | | | | + +--------+ +--------+ + + | Geraldo Mcfadden | Person | Self [birth year] | [address] [place], | | | al/Fam | | 1941 | [phone] | [place] [address] | | | julio | | | 2 (Home) | | + +--------+ +--------+ + + | Geraldo Mcfadden | Person | Self [birth year] | [address] [place], | | | al/Fam | | 1941 | [phone] | [place] [address] | | | julio | | | 2 (Home) | | + +--------+ +--------+ + + Advance Directives + + + + + | Type | Date Recorded | Patient | Explanation | | | | Developer Relations Manager | | + + + + + | Power of | | | | | Cashier Greeter | | | | + + + + + | Advance | 01/27/2019 | | | | Directive | 9:41 AM | | | + + + + + + + + + + | Code Status | Date | Date | Comments | | | Activated | Inactivated | | + + + + + | DNR (No | 12/09/2018 | 12/12/2018 | | | Code) | 10:23 AM | 1:26 PM | | + + + + + + + +---+ | RN or MD to pronounce: | RN may | | | | pronounce | | + + +---+ + + + +---+ | | | | | + + + +---+ | Full Code | 12/08/2018 | 12/09/2018 | | | | 11:28 PM | 10:22 AM | | + + + +---+ + + + +---+ | | | | | + + + +---+ | Full Code | 11/02/2018 | 11/04/2018 | | | | 4:01 PM | 3:31 PM | | + + + +---+ + + + +---+ | | | | | + + + +---+ | Full Code | 10/12/2018 | 10/19/2018 | | | | 8:08 PM | 7:22 PM | | + + + +---+ + + + +---+ | | | | | + + + +---+ | Full Code | 10/02/2018 | 10/06/2018 | | | | 10:38 PM | 8:05 PM | | + + + +---+
--- OUTSIDE RECORDS SUMMARY | ~2019-02-17 | XMS | Encounter Summary ---
Demographics + + + | Address | [address] | | | [place] [address] | + + + | Home Phone | | + + + | Preferred Language | Unknown | + + + | Marital Status | | + + + | Samaritan Affiliation | 1025 | + + + [...] Team Providers + +------+ + | Care Head Cd Reactor Operator Name | Role | Phone | + +------+ + | Ryan Gutiérrez MD | PCP | | + +------+ + Encounter Details +--------+ + + + + | Date | Type | Department | Care Team | Description | +--------+ + + + + | 06/20/ | [facility] | Scott De Oliveira | | | 2017 | Encounter | HOSPITAL GENERAL | DO [address] | | | | | SURGERY [address] | [address] | | | | | [address] [place], | [facility] [address], [place] | | | | | [place] [address] | [address] | | | | | [phone] | [phone] | | | | | | | [...] [place] | | | | | | [address] | | | | | | [phone] | | | | | | | | +--------+---------+ + + + | 02/26/ | Office | Urology | Lillie Fowler | | | 2018 | Visit | | LILLIE Lopez [address] | | | | | | [address] | | | | | | [place] | | | | | | [address] | | | | | | [phone] | | | | | | | | +--------+---------+ + + + | 03/16/ | Office | Neurology | Theresa, | | | 2018 | Visit | | [address] | | | | | | [address] [place], | | | | | | [place] [address] | | | | | | [phone] | | | | | | | | +--------+---------+ + + + | 04/12/ | Office | Primary Care | Massimo Ramos | | | 2019 | Visit | | MD Fer [address] | | | | | | [address] [place] | | | | | | [address] | | | | | | | | +--------+---------+ + + + | 10/03/ | Office | Neurology | Fabián Carias MD | | | 2019 | Visit | | [address] | | | | | | [place] | | | | | | [address] | | | | | | | [...] | | | care | | | Student Career Development Specialist-C | | | | | | | [...] | | | care | | | Student Career Development Specialist-C | | | | | | | [...] | | | care | | | Student Career Development Specialist-C | | | | | | | [...] | | | care | | | Student Career Development Specialist-C | | | | | | | linical | + +--------+ +---+-----+ + + + | Note: Pt will | | check CBG's daily x1 | | Pt will take Lantis as | | prescribed | + + documented as of this encounter Visit Diagnoses Not on filedocumented in this encounter"
--- OUTSIDE RECORDS SUMMARY | ~2019-02-17 | XMS | Encounter Summary ---
Demographics + + + | Address | [address] | | | [place] [address] | + + + | Home Phone | | + + + | Preferred Language | Unknown | + + + | Marital Status | | + + + | Anabaptism Affiliation | 1025 | + + + | Race | Unknown | + + + | Ethnic Group | Unknown | + + + Author + + + | Author | [facility] | | | and [place] | + + + | Organization | [facility] | | | [...] Team Providers + +------+ + | Care Camp Manager Name | Role | Phone | + [...] | +--------+ + + + + | 10/28/ | Telephone | [facility] | Horacio Silvestre, | Home Health | | 2019 | | [facility] | DO [address] | | | | | [facility] | [facility], [place] | | | | | [address] [place], | [address] | | | | | [place] [address] | [phone] | | | | | [phone] | | | +--------+ + + + [...] [place] | | | | | | [address] | | | | | | [phone] | | | | | | | | +--------+---------+ + + + | 02/26/ | Office | Urology | Lillie Fowler | | | 2018 | Visit | | LILLIE Lopez [address] | | | | | | [address] | | | | | | [place], [place] | | | | | | [address] | | | | | | [phone] | | | | | | | | +--------+---------+ + + + | 03/16/ | Office | Neurology | Theresa, | | | 2018 | Visit | | [address] | | | | | | [address] [place], | | | | | | [place] [address] | | | | | | [phone] | | | | | | | | +--------+---------+ + + + | 04/12/ | Office | Primary Care | Massimo Ramos | | | 2019 | Visit | | MD [address] | | | | | | [place] | | | | | | [address] | | | | | | | | +--------+---------+ + + + | 10/03/ | Office | Neurology | Fabián Carias MD | | | 2019 | Visit | | [address] | | | | | | [place] | | | | | | [address] | | | | | | | [...] | | | care | | | Strip Cleaner-C | | | | | | | [...] | | | care | | | Strip Cleaner-C | | | | | | | [...] | | | care | | | Strip Cleaner-C | | | | | | | [...] | | | care | | | Strip Cleaner-C | | | | | | | [...]
--- OUTSIDE RECORDS SUMMARY | ~2019-02-17 | XMS | Encounter Summary ---
Demographics + + + | Address | [address] | | | [place] [address] | + + + | Home Phone [...] Team Providers + +------+ + | Care Aoc Plans Intelligence Officer Chief Name | Role | Phone | + +------+ + PCP | Unavailable | + +------+ + Encounter Details +--------+ + + + + | Date | Type | Department | Care Team | Description | +--------+ + + + + | 03/13/ | Hospital | [facility] | Dereje, | | | 2009 | Encounter | HOSPITAL MED SURG | Myah Dos Santos MD [address] | | | | | [address] [place] | [facility] | | | | | [place], [place] | [place] | | | | | [address] | [address] | | | | | [phone] | [phone] | | | | | | | [...] documented as of this encounter Discharge Summaries Esteban Calvillo MD - 03/13/2010 1:50 PM PSTDictating Practitioner: Levon Doan Cc: Ryan Gutiérrez MD DISCHARGE SUMMARY DATE OF DISCHARGE: March 17, 2010. ADMITTING DIAGNOSIS: Abdominal pain, bright red blood per rectum. DISCHARGE DIAGNOSES: 1. Diverticulitis. 2. History of chronic diverticulosis. 3. Dehydration. 4. Hypomagnesemia. 5. Chronic obstructive pulmonary disease. 6. Hypothyroidism (over replaced). 7. Hypertension. 8. Hyperlipidemia. DISCHARGE MEDICATIONS: 1. FLAGYL 500 mg po b.i.d. x 10 days. 2. LEVAQUIN 500 mg po daily x 10 days. 3. ENTERIC COATED ASPIRIN 81 mg po daily. 4. LOSARTAN 100 mg po daily. 5. ATENOLOL 25 mg po daily. 6. HYDROCHLOROTHIAZIDE 25 mg po daily. 7. PRAVASTATIN 20 mg po q. h.s. 8. PRILOSEC 20 mg po daily. 9. LEVOTHYROXINE 125 mcg po daily. 10. TESTOSTERONE PATCH. DISCHARGE INSTRUCTIONS: The patient was discharged with clear instructions to followup with Dr. Gutiérrez in the next 1 to 2 weeks. The patient was given clear instructions to return to the hospital immediately should abdom inal pain return he developed recurrence of bright red blood per rectum. CLINICAL RESUME: Please see hospital notes for complete details of this service. In brief, Mr. Mcfadden is a 69 -year-old gentleman with a past medical history as outlined above. [facility] complaining of abdominal pain with a small amount of bright red blood per rectum. He also had subjective fevers at home. The patient had been seen in the emergency department three days prior to admission with abdominal pain and a syncopal episode. CT scan of the abdomen done at that time initially showed only diverticulosis, however when the patient returned 3 days later and e decision was made to admit him, Dr. Syed saw the patient and reviewed his CT scan which s he then noted showed evidence of diverticulitis without evidence of perforation. No abscess formation. The patient had a fever of 102. The patient was admitted to the wards. He was started on UNISON. He was aggressively volu me resuscitated and hypertensive medications were initially held. Over the next several days the patient improved clinically. However, he continued to spike low grade fevers in the 100 degree range on a nightly basis. Last night was the first night without fever of any kind. The patient's white blood cell count also decreased slowly from 18 down to 11.1 yesterday. Today white blood cell count is 13.5. The patient has been afebrile overnight. He has had no further abdominal pain, diarrhea or bright red blood per rectum. He is tolerating a heart healthy diet without difficulty. He is anxious to return home. The patient has been managed on UNISON while in the hospital. We will transition him over to oral LEVAQUIN and FLAGYL to finish a 14 day antibiotic course. While in the hospital a TSH was checked and found to be suppressed at 0.50. Free T4 was 0. 83. SYNTHROID dose was decreased from 137 mcg to 125 mcg. A repeat TSH will be needed in t he next 4 to 6 weeks. With regards to the patient's hypertension, after he was volume resuscitated, his antihyper tensive medications were restarted. The patient did have hypomagnesemia while in the hospital. He received a total of 4 grams o f MAGNESIUM SULFATE (2 on the day of discharge). This will need to be followed. This morning the patient is alert, oriented, and in no acute distress. He is anxious to ret urn home. I did discuss with him the need to return to the hospital should his abdominal pa in or fever return. The patient exhibits good understanding and agrees with the plan. Mr. Perdomo will be discharged to home later today in fair condition on the ab ove outlined medication followup regimen. [facility] Signed and Approved by: ESTEBAN CALVILLO MD 03/23/2010 17:09:00 documented in this encounter Plan of Treatment [...] [place] | | | | | | [address] | | | | | | [phone] | | | | | | | | +--------+---------+ + + + | 02/26/ | Office | Urology | Lillie Fowler | | | 2018 | Visit | | [address]IE [address] | | | | | | [address] | | | | | | [place], [place] | | | | | | [address] | | | | | | [phone] | | | | | | | | +--------+---------+ + + + | 03/16/ | Office | Neurology | Theresa, | | | 2018 | Visit | | [address] | | | | | | [address] [place], | | | | | | [place] [address] | | | | | | [phone] | | | | | | | | +--------+---------+ + + + | 04/12/ | Office | Primary Care | Massimo Ramos | | | 2019 | Visit | | MD Fer [address] | | | | | | [place] | | | | | | [address] | | | | | | | | +--------+---------+ + + + | 10/03/ | Office | Neurology | Fabián Carias MD | | | 2019 | Visit | | [address] | | | | | | [place] | | | | | | [address] | | | | | | | [...] | | | care | | | Ux Researcher-C | | | | | | | [...] | | | care | | | Ux Researcher-C | | | | | | | [...] | | | care | | | Ux Researcher-C | | | | | | | [...] | | | care | | | Ux Researcher-C | | | | | | | linical | + +--------+ +---+-----+ + + + | Note: Pt will | | check CBG's daily x1 | | Pt will take Lantis as | | prescribed | + + documented as of this encounter Visit Diagnoses Not on filedocumented in this encounter"
--- OUTSIDE RECORDS SUMMARY | ~2019-02-17 | XMS | Encounter Summary ---
Demographics + + + | Address | [address] | | | [place] [address] | + + + | Home Phone | | + + + | Preferred Language | Unknown | + + + | Marital Status | | + + + | Mormonism Affiliation | 1025 | + + + | Race | Unknown | + + + | Ethnic Group | Unknown | + + + Author + + + | Author | [facility] | | | and [place] | + + + | Organization | [facility] | | | and [place] | + [...] Team Providers + +------+ + | Care Chemical Weigher Name | Role | Phone | + +------+ + | Ryan Gutiérrez MD | PCP | | + +------+ + Encounter Details +--------+ + + + + | Date | Type | Department | Care Team | Description | +--------+ + + + + | 06/23/ | [facility] | Ryan Gutiérrez | | | 2014 | Encounter | HOSPITAL XRAY [address] | [address] | | | | | [place] | [address] | | | | | [place] | [place] [address] | | | | | [address] | [phone] | | | | | [phone] | | | +--------+ + + + [...] [place] | | | | | | [address] | | | | | | [phone] | | | | | | | | +--------+---------+ + + + | 02/26/ | Office | Urology | Lillie Fowler | | | 2018 | Visit | | LILLIE Lopez [address] | | | | | | [address] | | | | | | [place] | | | | | | [address] | | | | | | [phone] | | | | | | | | +--------+---------+ + + + | 03/16/ | Office | Neurology | Theresa, | | | 2018 | Visit | | [address] | | | | | | [address] [place], | | | | | | [place] [address] | | | | | | [phone] | | | | | | | | +--------+---------+ + + + | 04/12/ | Office | Primary Care | Massimo Ramos | | | 2019 | Visit | | MD Fer [address] | | | | | | [place] | | | | | | [address] | | | | | | | | +--------+---------+ + + + | 10/03/ | Office | Neurology | Fabián Carias MD | | | 2019 | Visit | | [address] | | | | | | [place] | | | | | | [address] | | | | | | | [...] | | | care | | | [place] | | | | | | | [...] | | | care | | | [place] | | | | | | | [...] | | | care | | | [place] | | | | | | | [...] | | | care | | | [place] | | | | | | | linical | + +--------+ +---+-----+ + + + | Note: Pt will | | check CBG's daily x1 | | Pt will take Lantis as | | prescribed | + + documented as of this encounter Visit Diagnoses Not on filedocumented in this encounter"
--- OUTSIDE RECORDS SUMMARY | ~2019-02-17 | XMS | Encounter Summary ---
Demographics + + + | Address | [address] | | | [place] [address] | + + + | Home Phone | | + + + | Preferred Language | Unknown | + + + | Marital Status | | + + + | Congregational Affiliation | 1025 | + + + | Race | Unknown | + + + | Ethnic Group | Unknown | + + + Author + + + | Author | [facility] | | | and [place] | + + + | Organization | [facility] | | [...] Team Providers + +------+ + | Care Machine Clerical Verifier Name | Role | Phone | + +------+ + | Horacio Silvestre DO | PCP | | + +------+ + Reason for Referral Evaluate & Treat (Routine) +--------+ + + + + + | Status | Reason | Specialty | Diagnoses / | Referred By | Referred To | | | | | Procedures | Contact | Contact | +--------+ + + + + + | Closed | Specialty | Podiatry | Diagnoses | [facility], | [facility] | | | Services | | Fissure in | Faraz Addison DNP | Podiatry [address] | | | Required | | skin of foot | [address] | [address] | | | | | Fungal | [address] [place] | [place] [address] [place] | | | | | infection of | [place] | | | | | toenail | [address] | [address] | | | | | Procedures | Phone: | Phone: | | | | | FOOT ISSUES | [phone] | [phone] | | | | | | Fax: | Fax: | | | | | | [phone] | [phone] | +--------+ + + + + + Reason for Visit + + + | Reason | Comments | + + + | Follow-up | Pnemonia | + + + Encounter Details +--------+---------+ + + + | Date | Type | Department | Care Team | Description | +--------+---------+ + + + | 01/19/ | Office | [facility] | Faraz Tejada, | History of pneumonia | | 2018 | Visit | [facility] | DNP [address] | (Primary Dx); | | | | MEDICAL CLIN[facility] | [place] [address] | Fissure in skin of | | | | [address] [place], | [phone] | foot; Fungal | | | | [place] [address] | | infection of | | | | [phone] | | toenail; Weakness of | | | | | | both lower | | | | | | extremities | +--------+---------+ + + + Social History [...] + + + | Blood Pressure | 114/64 | 01/19/2018 9:55 AM | | | | | PDT | | + + + + + | Pulse | 78 | 01/19/2018 9:55 AM | | | | | PDT | | + + + + + | Temperature | - | - | | + + + + + | Respiratory Rate | 15 | 01/19/2018 9:55 AM | | | | | PDT | | + + + + + | Oxygen Saturation | 95% | 01/19/2018 9:55 AM | | | | | PDT | | + + + + + | Inhaled Oxygen | - | - | | | Concentration | | | | + + + + + | Weight | 95.3 kg (210 lb) | 01/19/2018 9:55 AM | | | | | PDT | | + + + + + | Height | 167.6 cm (5' 5.98") | 01/19/2018 9:55 AM | | | | | PDT | | + + + + + | Body Mass Index | 33.91 | 01/19/2018 9:55 AM | | | | | PDT [...] documented as of this encounter Progress Notes Faraz Tejada, NENO - 01/19/2018 10:30 AM PDTFormatting of this note might be different fro kyle the original. Patient ID: Geraldo Mcfadden is a 77 y.o. year old male Chief Complaint: Chief Complaint Patient presents with Follow-up Pnemonia Assessment and Plan: 1. History of pneumonia - Geraldo was educated that he may have some residual fatigue for the next month or so as a result of his recent pneumonia. Otherwise, he seems to be recovering well. 2. Fissure in skin of foot 3. 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 - Patient discouraged from using his own industrial cylinder grinder to perform foot care as he lack s the training and the pain sensation to prevent him from doing damage. - * [facility] - AMB Referral 4. Weakness of both lower extremities - I instructed Geraldo to speak to our radiology schedule her about his previously ordered MRIs. Imaging results from the studies will inform future decisions regarding his bilateral lower extremity weakness. Follow-up in the clinic as needed if symptoms persist or worsen. Subjective: Geraldo is a 77-year-old male who presents to the clinic for follow-up after a di agnosis of community-acquired pneumonia. He was seen in the emergency department on 01/10/20 (10 days ago) after having a fall at home with profoundly increased weakness. He denies any symptoms of cough or shortness of breath. He does report that he is feeling somewhat be tter at this point. He has some residual fatigue but is otherwise at his baseline. He continues to have some lower extremity weakness with exertion, but that has been a prolo nged problem. Dr. Carias sees Geraldo for a variety of problems including this low extremity w eakness. Dr. Carias has previously ordered an MRI of his lumbar spine and cervical spine. The se imaging tests have not been performed yet and are not currently scheduled. A lumbar x-ra y from 12/27/2015 demonstrated multilevel disc and facet degenerative changes along with rody l narrowing. That was the last imaging performed of the spine. Geraldo also reports problems with his feet. 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 He has cracked, fissured heels as well as mycotic nails. He tries to manage this himself. His states that he takes an industrial cylinder grinder to his heels from time t o time. He will continue this until it bleeds. They would like a referral to a foot doctor if possible. I agree that this would be an important component to his care. Allergies: Allergies Allergen Reactions Zolpidem Anaphylaxis Social History: Social History Social History Marital [...] morning. atorvaSTATin (LIPITOR) 10 mg tablet Take 10 mg by mouth nightly. colchicine 0.6 mg tablet Take 0.6 mg by mouth every morning. cyanocobalamin (VITAMIN B-12) 1000 MCG tablet Take 1,000 mcg by mouth every morning. fluticasone (FLONASE) 50 mcg/nasal spray 2 sprays by Nasal route nightly as needed for Allergies. insulin aspart (NOVOLOG) 100 units/mL injection Inject 10 Units under the skin every mo rning (before breakfast). Checks BG 30 minutes after eating + Additional 15 units for BG >250 insulin glargine (LANTUS) 100 units/mL injection (vial) [...] Take 50 mg by mouth every morning. naproxen (NAPROSYN) 500 mg tablet Take 500 mg by mouth 2 times daily (with breakfast & dinner). omeprazole (PRILOSEC) 20 mg capsule Take 1 [...] mouth 2 times daily. 180 capsule 0 tamsulosin (FLOMAX) 0.4 mg CAPS Take 1 capsule by mouth nightly. 90 capsule 3 traZODone (DESYREL) 50 mg tablet Take 100 mg by mouth nightly. No current facility-administered medications for this visit. Review of Systems Constitutional: Positive for fatigue. Negative for chills, diaphoresis and fever. Respiratory: Negative for cough, shortness of breath and wheezing. Cardiovascular: Negative for chest pain and palpitations. Musculoskeletal: Positive for arthralgias, back pain and gait problem (Lower extremity weak ness. Using a cane currently due to increased fatigue and weakness at this time.). Neurological: Positive for weakness (bilateral lower extremities, particularly with activit y.) and numbness (lower extremity). Negative for dizziness, light-headedness and headaches. Objective: Vitals: BP 114/64 | Pulse 78 | Resp 15 | Ht 1.676 m (5' 5.98") | Wt 95.3 kg (210 lb) | SpO2 95 % | BMI 33.91 kg/m Physical Exam Constitutional: He is oriented to person, place, and time. He appears well-developed and we ll-nourished. No distress. Cardiovascular: Normal rate, regular rhythm and normal heart sounds. No murmur heard. Pulmonary/Chest: Effort normal and breath sounds normal. No respiratory distress. He has no wheezes. He has no rales. Neurological: He is alert and oriented to person, place, and time. No cranial nerve deficit . Skin: Skin is warm and dry. No rash noted. He is not diaphoretic. No erythema. No pallor. Psychiatric: He has a normal mood and affect. His behavior is normal. Judgment and thought content normal. This note was transcribed using voice recognition software; there may be speech recognition errors which escaped detection during proofreading. documented in this en counter Plan of Treatment +--------+---------+ + + + [...] [place] | | | | | | [address] | | | | | | [phone] | | | | | | | | +--------+---------+ + + + | 02/26/ | Office | Urology | Lillie Fowler | | | 2018 | Visit | | LILLIE Lopez [address] | | | | | | [address] | | | | | | [place], [place] | | | | | | [address] | | | | | | [phone] | | | | | | | | +--------+---------+ + + + | 03/16/ | Office | Neurology | Theresa, | | | 2018 | Visit | | [address] | | | | | | [address] [place], | | | | | | [place] [address] | | | | | | [phone] | | | | | | | | +--------+---------+ + + + | 04/12/ | Office | Primary Care | Massimo Ramos | | | 2019 | Visit | | MD Fer [address] | | | | | | [place] | | | | | | [id number] | | | | | | | | +--------+---------+ + + + | 10/03/ | Office | Neurology | Fabián Carias MD | | | 2019 | Visit | | [address] | | | | | | [place] | | | | | | [address] | | | | | | | | +--------+---------+ + + + + + +--------+ + + | Name | Type | Priori | Associated Diagnoses | Order Schedule | | | | ty | | | + + +--------+ + + | * [facility] | Outpatient | Routin | Fissure in skin of | Ordered: 01/19/2018 | | [facility] - AMB | Referral | e | foot Fungal | | | Referral | | | infection of toenail | | + + +--------+ + + documented as of this encounter [...] | | | care | | | Platen Builder Up-C | | | | | | | [...] | | | care | | | Platen Builder Up-C | | | | | | | [...] | | | care | | | Platen Builder Up-C | | | | | | | [...] | | | care | | | Platen Builder Up-C | | | | | | | linical | + +--------+ +---+-----+ + + + | Note: Pt will | | check CBG's daily x1 | | Pt will take Lantis as | | prescribed | + + documented as of this encounter Visit Diagnoses + + | Diagnosis | + + | History of pneumonia - Primary Personal history of pneumonia (recurrent) | + + | Fissure in skin of foot Other specified disorder of skin | + + | Fungal infection of toenail Dermatophytosis of nail | + + | Weakness of both lower extremities | + + documented in this encounter
--- OUTSIDE RECORDS SUMMARY | ~2019-02-17 | XMS | Encounter Summary ---
Demographics + + + | Address | [address] | | | [place] [address] | + + + | Home Phone | | + + + | Preferred Language | Unknown | + + + | Marital Status | | + + + | Gnosticist Affiliation | [id number] | + + + [...] Team Providers + +------+ + | Care Glueline Worker Name | Role | Phone | + +------+ + | Horacio Silvestre DO | PCP | | + +------+ + Reason for Visit + + + | Reason | Comments | + + + | Vomiting (Severe) | | + + + | Fever (73 Years Old | | | Or >) | | + + + Encounter Details +--------+ + + + + | Date | Type | Department | Care Team | Description | +--------+ + + + + | 08/15/ | Hospital | [facility] | Juan Williamson | Pneumonia of left | | 2018 - | Encounter | HOSPITAL MED SURG | MD [address] | upper lobe due to | | | | [address] [place] | [facility] | infectious organism | | 08/16/ | | [place], [place] | [id number] [address] | ([facility]) (Primary Dx) | | 2018 | | [address] | [phone] | | | | | [phone] | | | | | | | Faizan Wesley, | | | | | | [address] | | | | | | [place] [address] | | | | | | [phone] | | | | | | | [...] + + + | Blood Pressure | 134/67 | 08/16/2017 8:00 AM | | | | | PDT | | + + + + + | Pulse | 51 | 08/16/2017 8:00 AM | | | | | PDT | | + + + + + | Temperature | 36.3 C (97.34 F) | 08/16/2017 8:00 AM | | | | | PDT | | + + + + + | Respiratory Rate | 24 | 08/16/2017 8:00 AM | | | | | PDT | | + + + + + | Oxygen Saturation | 88% | 08/16/2017 11:42 AM | after walking 200 | | | | PDT | feet and up/down 1 | | | | | flight of stairs | + + + + + | Inhaled Oxygen | - | - | | | Concentration | | | | + + + + + | Weight | 101 kg (222 lb 10.6 | 08/15/2017 1:11 PM | | | | oz) | PDT | | + + + + + | Height | 166 cm (5' 5.35") | 08/15/2017 1:11 PM | | | | | PDT | | + + + + + | Body Mass Index | 36.65 | 08/15/2017 1:11 PM | | | | | PDT [...] documented as of this encounter Discharge Summaries Faizan Wesley MD - 08/16/2017 9:52 AM PDT MEDICAL HOSPITALIST DISCHARGE SUMMARY Pt. Name/Age/: Geraldo Addison Mcfadden 77 y.o. 1940 Date of Admission: 08/15/2017 Date of Discharge: 08/16/2017 PCP: Horacio Silvestre Admitting Diagnosis: pneumonia Discharge Diagnosis: Active Problems: Pneumonia Resolved Problems: * No resolved hospital problems. * pneumonia Additional discharge history/co-morbidities: Active Ambulatory Problems Diagnosis Date Noted Multilevel degenerative disc disease 05/22/2013 Bilateral carpal tunnel syndrome 05/31/2013 History of stroke without residual deficits 03/07/2017 Gastroesophageal reflux disease without esophagitis 03/07/2017 Essential hypertension 03/07/2017 Acquired hypothyroidism 03/07/2017 Pure hypercholesterolemia 03/07/2017 Hypogonadotropic hypogonadism 03/07/2017 Type 2 diabetes mellitus with diabetic polyneuropathy, 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 03/07/2017 Class 2 obesity with alveolar hypoventilation, serious comorbidity, and body mass index (BMI) of 35.0 to 35.9 in adult 03/07/2017 Benign prostatic hyperplasia without lower urinary tract symptoms 03/07/2017 Acquired diverticulosis of colon 03/07/2017 Chronic nonseasonal allergic rhinitis due to pollen 03/07/2017 USP current use of aspirin 03/07/2017 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, 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 current use of opiate analgesic 06/27/2017 Current use of beta marly 06/30/2017 Panlobular emphysema 08/08/2017 Atherosclerosis of kashia coronary artery of kashia heart without angina pectoris 08/08 On potassium wasting diuretic therapy 08/08/2017 Resolved Ambulatory Problems Diagnosis Date Noted No Resolved Ambulatory Problems Past Medical History: Diagnosis Date Carpal tunnel syndrome, bilateral 05/31/2013 DDD (degenerative disc disease), cervical 05/22/2013 Diabetes mellitus GERD (gastroesophageal reflux disease) Gout Hiatal hernia Hypertension Melanoma Melanoma 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, left Neck pain, chronic 05/22/2013 Neuropathy Paresthesias - both hands 05/22/2013 Thyroid disease Medications Reconciled upon Discharge are: Discharge Medications New Medications Details azithromycin 250 mg tablet Take 2 tablets by mouth on day 1, and 1 tablet by mouth every day aka: ZITHROMAX cefdinir 300 mg capsule Take 1 capsule by mouth 2 times daily for 7 days. aka: OMNICEF Unchanged Medications Details albuterol 90 mcg/puff inhaler Inhale 2 puffs into the lungs every 4 hours as needed for Wheezing. Or coughing aspirin 325 mg tablet Take 325 mg by mouth Daily. atorvaSTATin 10 mg tablet Take 10 mg by mouth nightly. aka: LIPITOR cholecalciferol 1,000 units tablet Take 2,000 Units by mouth Daily. aka: VITAMIN D-3 colchicine 0.6 mg tablet Take 0.6 mg by mouth 2 times daily. cyanocobalamin 1000 MCG tablet Take 1 tablet by mouth Daily. aka: VITAMIN B-12 fluticasone 50 mcg/nasal spray 2 sprays by Nasal route Daily. aka: FLONASE hydroCHLOROthiazide 25 mg tablet Take 12.5 mg by mouth Daily. insulin aspart 100 units/mL injection Inject 10 Units under the skin 3 times daily (before meals). Take 10 units prior to each m eal and follow sliding scale of blood sugar between 151-200 = 4 units; 201-250=8 units; 251- 300=10 units; 301-350= 12 units; 351-400= 14 units; 401-450= 16 units. aka: NOVOLOG insulin glargine 100 units/mL injection (vial) Inject 35 Units under the skin nightly. aka: LANTUS levothyroxine 175 MCG tablet Take 1 tablet by mouth every morning (before breakfast). aka: SYNTHROID losartan 50 mg tablet Take 50 mg by mouth Daily. aka: COZAAR omeprazole 20 mg capsule Take 1 capsule by mouth every morning (before breakfast). aka: priLOSEC oxyCODONE 10 MG Tabs Take 1 tablet by mouth Twice daily as needed for Pain. pregabalin 300 MG capsule Take 300 mg by mouth 2 times daily. aka: LYRICA sertraline 100 mg tablet Take 150 mg by mouth Daily. aka: ZOLOFT tamsulosin 0.4 mg Caps Take 0.4 mg by mouth nightly. aka: FLOMAX tiotropium 18 mcg inhalation capsule Inhale 18 mcg into the lungs Daily. aka: SPIRIVA traZODone 50 mg tablet Take 50 mg by mouth nightly. aka: JUDYYREL Clinical Resume: 77yo male who presented to the ER with increasing weakness. He had an elevated white count and a cxr consistent with pneumonia. He was admitted and treated with ceftriaxone and azit hromycin. The following morning he white count normalized and the pt reported being back at his baseline strength. His o2 sats were in the high 90's. He was road tested prior to d/c and did well. His ambulatory sats did drop to 85. He qualifies for home O2. We will arra nge this prior to d/c. Resting sats high 90's so prn with ambulation. D/C home this mornin g with 7 days of cefdinir and azithromycin. F/U with PCP to ensure complete resolution of sx's. Significant tests and procedures during admission: Xr Chest Pa And Lateral Result Date: 08/15/2017 EXAMINATION: XR CHEST PA AND LATERAL HISTORY: VOMITING (SEVERE); FEVER (75 YEARS OLD OR >) COMPARISON STUDY: Chest radiograph 07/05/2017. CT thorax 12/25/2016. FINDINGS: Vague asymmet jovani opacity at the left mid lower lung zone is noted without lobar consolidation. On the la teral projection no focal infiltrate is seen at the posterior thorax. No pleural effusion se en. Heart size within normal limits given AP projection. Atherosclerosis of the coronary a rteries present better appreciated on prior CT study. IMPRESSION: 1. Opacity left mid lower lung zone which could relate to overlap of normal yasir abdifatah versus pneumonia. Follow-up to demonstrate resolution recommended. 2. Atherosclerosis coronary arteries. Dictated by: Troy Lawrence Electronically Signed by: Troy Lawrence on 02/2018 12:10 PM Recommended follow up labs/imaging/tests: Pending inpatient studies at time of discharge: Disposition: Home Follow-Up Plans: Horacio S Konrad, DO [address] [place] [address] In 1 week ensure resolution of pneumonia Time spent on D/C and coordination care: (less than 30 min OR greater than 30 min) 30 minutes I personally saw the patient today to arrange discharge. Faizan Wesley, 08/16/2017 documented in this encounter Discharge Instructions Instructions Faizan Wesley MD - 08/16/2017 Pneumonia (Adult) Pneumonia is an infection deep within the lungs. It is in the small air sacs (alveoli). Pne umonia may be caused by a virus or bacteria. Pneumonia caused by bacteriais usually treate d with an antibiotic. Severe cases may need to be treated in the hospital. Milder cases can be treated at home. Symptoms usually start to get better during the first2 days of treatme nt. Home care Follow these guidelines when caring for yourself at home: Rest at home for the first 2 to 3 days, or until you feel stronger. Don t let yourself get overly tired when you go back to your activities. Stay away from cigarette smoke yours or other people s. You may use acetaminophen or ibuprofen to control fever or pain, unless another medicine was prescribed. If you have chronic liver or kidney disease, talk with your healthcare prov ider before using these medicines. Also talk with your provider if you ve had a stomach ul cer or gastrointestinal bleeding. Don t give aspirin to anyone younger than 18 years of ag e who is ill with a fever. It may cause severe liver damage. Your appetite may be poor, so a light diet is fine. Drink 6 to 8 glasses of fluids every day to make sure you are getting enough fluids. Jackie erages can include water, sport drinks, sodas without caffeine, juices, tea, or soup. Fluids will help loosen secretions in the lung. This will make it easier for you to cough up the p hlegm (sputum). If you also have heart or kidney disease, check with your healthcare provide r before you drink extra fluids. Take antibiotic medicine prescribed until it is all gone, even if you are feeling better after a few days. Follow-up care Follow up with your healthcare provider in the next 2 to 3 days, or as advised. This is to be sure the medicine is helping you get better. If you are 65 or older, you should get a pneumococcal vaccine and a yearlyflu (influenza) shot. You should also get these vaccines if you have chronic lung disease like asthma, emp hysema, or COPD. Recently, a second type of pneumonia vaccine has become available for every one over 65 years old. This is in addition to the previous vaccine. Ask your provider about this. When to seek medical advice Call your healthcare provider right away if any of these occur: You don t get better within the first 48 hours of treatment Shortness of breath gets worse Rapid breathing (more than 25 breaths per minute) Coughing up blood Chest pain gets worse with breathing Fever of100.4F (38C) or higher that doesn t get better with fever medicine Weakness, dizziness, or fainting that gets worse Thirst or dry mouth that gets worse Sinus pain, headache, or a stiff neck Chest pain not caused by coughing Date Last Reviewed: 04/07/201619994033-5494 [employer]. [address] [place] [address]. All righ ts reserved. This information is not intended as a substitute for professional medical care. Always follow your healthcare professional's instructions. documented in this encounter Medications at Time [...] + + + +---------+ + + | azithromycin | Take 2 tablets by | 7 | 0 | 08/17/19 | | | (ZITHROMAX) 250 mg | mouth on day 1, and | tablet | | 18 | 8 | | tablet | 1 tablet by mouth | | | | | | | every day | | | | | + + + +---------+ + + | cefdinir (OMNICEF) | Take 1 capsule by | 14 | 0 | 08/17/19 | | | 300 mg capsule | mouth 2 times daily | capsule | | 18 | 8 | | | for 7 days. | | | | | + + + +---------+ + + | cholecalciferol | Take 2,000 Units by | | 0 | | | | (VITAMIN D-3) 1,000 | mouth Daily. | | | | 8 | | units tablet | | | | | | + + + +---------+ + + | colchicine 0.6 mg | Take 0.6 mg by mouth | | 0 | | | | tablet | every morning. | | | | 8 | + + + +---------+ + + | cyanocobalamin | Take 1 tablet by | 90 | 3 | 08/09/19 | | | (VITAMIN B-12) 1000 | mouth Daily. | tablet | | 18 | 8 | | MCG tablet | [...] + +---------+ + + | | Take 12.5 mg by | | 0 | | | | hydroCHLOROthiazide | mouth Daily. | | | | 8 | [...] Inject 35 Units | 10 mL | 1 | 07/29/19 | | | (LANTUS) 100 | under [...] capsule by | 90 | 0 | 07/29/19 | | | (PRILOSEC) 20 mg | mouth every morning | capsule | | 18 | 8 | | capsule | (before breakfast). | | | | | + + + +---------+ + + | oxyCODONE 10 MG | Take 1 tablet by | 56 | 0 | 08/08/19 | | | TABSIndications: | mouth Twice daily | tablet | | 18 | 8 | | Multilevel | as needed for Pain. 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, USP | | | | | | | current use of | | | | | | | opiate analgesic, | | | | | | | Bilateral carpal | | | | | | | tunnel syndrome | | | | | | + + + +---------+ + + | pregabalin | Take 300 mg by mouth | | 0 | | | | (LYRICA) 300 MG | 2 times daily. | | | | 8 | | capsule | | | | | | + + + +---------+ + + | sertraline | Take 150 mg by mouth | | 0 | | | | (ZOLOFT) 100 mg | Daily. | | | | 8 | | tablet | | | | | | + + + +---------+ + + | tamsulosin | Take 0.4 mg by mouth | | 0 | | | | (FLOMAX) 0.4 mg CAPS | nightly. | | | | 8 | + + + +---------+ + + | tiotropium | Inhale 18 mcg into | | 0 | | | | (SPIRIVA) 18 mcg | the lungs Daily. | | | | 8 | | inhalation capsule | | | | | | + + + +---------+ + + | traZODone | Take 50 mg by mouth | | 0 | | | | (DESYREL) 50 mg | nightly. | | | | 8 | | tablet | | | | | | + + + +---------+ + + documented as of this encounter Progress Notes Cynthia Mendes, PharmD - 08/16/2017 11:05 AM PDTFormatting of this note might be jeimy t from the original. PHARMACY SERVICES: DISCHARGE MEDICATION TEACHING Geraldo Mcfadden is a 77 y.o. male admitted on 08/15/17 for pneumonia and was discharged on 0 08/16/17. Discharge Medications New Medications Details azithromycin 250 mg tablet Take 2 tablets by mouth on day 1, and 1 tablet by mouth every day aka: ZITHROMAX cefdinir 300 mg capsule Take 1 capsule by mouth 2 times daily for 7 days. aka: OMNICEF Unchanged Medications Details albuterol 90 mcg/puff inhaler Inhale 2 puffs into the lungs every 4 hours as needed for Wheezing. Or coughing aspirin 325 mg tablet Take 325 mg by mouth Daily. atorvaSTATin 10 mg tablet Take 10 mg by mouth nightly. aka: LIPITOR cholecalciferol 1,000 units tablet Take 2,000 Units by mouth Daily. aka: VITAMIN D-3 colchicine 0.6 mg tablet Take 0.6 mg by mouth 2 times daily. cyanocobalamin 1000 MCG tablet Take 1 tablet by mouth Daily. aka: VITAMIN B-12 fluticasone 50 mcg/nasal spray 2 sprays by Nasal route Daily. aka: FLONASE hydroCHLOROthiazide 25 mg tablet Take 12.5 mg by mouth Daily. insulin aspart 100 units/mL injection Inject 10 Units under the skin 3 times daily (before meals). Take 10 units prior to each m eal and follow sliding scale of blood sugar between 151-200 = 4 units; 201-250=8 units; 251- 300=10 units; 301-350= 12 units; 351-400= 14 units; 401-450= 16 units. aka: NOVOLOG insulin glargine 100 units/mL injection (vial) Inject 35 Units under the skin nightly. aka: LANTUS levothyroxine 175 MCG tablet Take 1 tablet by mouth every morning (before breakfast). aka: SYNTHROID losartan 50 mg tablet Take 50 mg by mouth Daily. aka: COZAAR omeprazole 20 mg capsule Take 1 capsule by mouth every morning (before breakfast). aka: priLOSEC oxyCODONE 10 MG Tabs Take 1 tablet by mouth Twice daily as needed for Pain. pregabalin 300 MG capsule Take 300 mg by mouth 2 times daily. aka: LYRICA sertraline 100 mg tablet Take 150 mg by mouth Daily. aka: ZOLOFT tamsulosin 0.4 mg Caps Take 0.4 mg by mouth nightly. aka: FLOMAX tiotropium 18 mcg inhalation capsule Inhale 18 mcg into the lungs Daily. aka: SPIRIVA traZODone 50 mg tablet Take 50 mg by mouth nightly. aka: TAMIKO Counseled patient on the new prescriptions for the antibiotics Azithromycin and cefdinir. Instructed patient to start both as soon as he picks them up as he had not had any doses tod ay. Patient verbalized understanding as well as the was in listening and repeated back everything. Electronically signed by: Cynthia Mendes PharmD 08/16/2017 11:05 Cynthia Orozco PharmD - 08/15/2017 2:08 PM PDTMedication History Completed Medication history was completed using: -interview with Patient -medication verified with bottles patient brought in Major discrepancies noted: None Please see [facility] WORK[facility] med list for updated medication list. Electronically Signed by: Cynthia Mendes PharmD 08/15/2017 14:09 documented in th is encounter Plan of Treatment +--------+---------+ + + [...] [place] | | | | | | [address] | | | | | | [phone] | | | | | | | | +--------+---------+ + + + | 02/26/ | Office | Urology | Lillie Fowler | | | 2018 | Visit | | LILLIE Lopez [address] | | | | | | [address] | | | | | | [place], [place] | | | | | | [address] | | | | | | [phone] | | | | | | | | +--------+---------+ + + + | 03/16/ | Office | Neurology | Theresa, | | | 2018 | Visit | | SHONDA Mckinney [address] [place], | | | | | | [place] [address] | | | | | | [phone] | | | | | | | | +--------+---------+ + + + | 04/12/ | Office | Primary Care | Massimo Ramos | | | 2019 | Visit | | MD Fer [address] | | | | | | [address] [place] | | | | | | [address] | | | | | | | | +--------+---------+ + + + | 10/03/ | Office | Neurology | Fabián Carias MD | | | 2020 | Visit | | [address] | | | | | | [place] | | | | | | [address] | | | | | | | [...] | | | care | | | Roving Changer-C | | | | | | | [...] | | | care | | | [facility] Changer[facility]C | | | | | | | [...] | | | care | | | Roving Changer-C | | | | | | | [...] | | | care | | | Roving Changer-C | | | | | | | [...] | + +--------+ + + + | ECG - EXTERNAL SCAN | | 08/19/2017 | | Results for this | | | | 12:00 AM | | procedure are in the | | | | PDT | | results section. | + +--------+ + + + | ECG - EXTERNAL SCAN | | 08/19/2017 | | Results for this | | | | 12:00 AM | | procedure are in the | | | | PDT | | results section. | + +--------+ + + + | POC GLUCOSE | Routin | 08/16/2017 | | Results for this | | | e | 11:53 AM | | procedure are in the | | | | PDT | | results section. | + +--------+ + + + | POC GLUCOSE | Routin | 08/16/2017 | | Results for this | | | e | 7:43 AM | | procedure are in the | | | | PDT | | results section. | + +--------+ + + + | CBC WITH | Routin | 08/16/2017 | | Results for this | | DIFFERENTIAL | e | 5:40 AM | | procedure are in the | | | | PDT | | results section. | + +--------+ + + + | MAGNESIUM | Routin | 08/16/2017 | | Results for this | | | e | 5:40 AM | | procedure are in the | | | | PDT | | results section. | + +--------+ + + + | POC GLUCOSE | Routin | 08/15/2017 | | Results for this | | | e | 9:33 PM | | procedure are in the | | | | PDT | | results section. | + +--------+ + + + | POC GLUCOSE | Routin | 08/15/2017 | | Results for this | | | e | 4:29 PM | | procedure are in the | | | | PDT | | results section. | + +--------+ + + + | URINALYSIS WITH | STAT | 08/15/2017 | | Results for this | | MICROSCOPIC WITH | | 3:30 PM | | procedure are in the | | CULTURE IF INDICATED | | PDT | | results section. | + +--------+ + + + | POC GLUCOSE | Routin | 08/15/2017 | | Results for this | | | e | 2:28 PM | | procedure are in the | | | | PDT | | results section. | + +--------+ + + + | INFLUENZA A AND B | STAT | 08/15/2017 | | Results for this | | [place], [place] | | 11:50 AM | | procedure are in the | | | | PDT | | results section. | + +--------+ + + + | XR CHEST PA AND | STAT | 08/15/2017 | | Results for this | | LATERAL | | 11:45 AM | | procedure are in the | | | | PDT | | results section. | + +--------+ + + + | TSH, REFLEX FREE T4 | Routin | 08/15/2017 | | Results for this | | | e | 10:45 AM | | procedure are in the | | | | PDT | | results section. | + +--------+ + + + | CULTURE, BLOOD | STAT | 08/15/2017 | | Results for this | | | | 10:45 AM | | procedure are in the | | | | PDT | | results section. | + +--------+ + + + | CULTURE, BLOOD | STAT | 08/15/2017 | | Results for this | | | | 10:25 AM | | procedure are in the | | | | PDT | | results section. | + +--------+ + + + | CBC WITH | STAT | 08/15/2017 | | Results for this | | DIFFERENTIAL | | 10:25 AM | | procedure are in the | | | | PDT | | results section. | + +--------+ + + + | MAGNESIUM | STAT | 08/15/2017 | | Results for this | | | | 10:25 AM | | procedure are in the | | | | PDT | | results section. | + +--------+ + + + | LACTIC ACID | STAT | 08/15/2017 | | Results for this | | | | 10:25 AM | | procedure are in the | | | | PDT | | results section. | + +--------+ + + + | COMPREHENSIVE | STAT | 08/15/2017 | | Results for this | | METABOLIC PANEL | | 10:25 AM | | procedure are in the | | | | PDT | | results section. | + +--------+ + + + documented in this encounter Results ECG - EXTERNAL SCAN (08/19/2017 12:00 AM PDT) + + + | Narrative | Performed At | + + + | Ordered by an | | | unspecified provider. | | + + + ECG - EXTERNAL SCAN (08/19/2017 12:00 AM PDT) + + + | Narrative | Performed At | + + + | Ordered by an | | | unspecified provider. | | + + + POC Glucose (08/16/2017 11:53 AM PDT) + +---------+ + + + | Component | Value | Ref Range | Performed | Pathologist | | | | | At | Signature | + +---------+ + + + | Glucose, | 155 (H) | 70 - 110 mg/dL | [...] + + | [facility] | [address] | [place] [address] | [phone] | | [facility] | | | | + + + + + POC Glucose (08/16/2017 7:43 AM PDT) + +---------+ + + + | Component | Value | Ref Range | Performed | Pathologist | | | | | At | Signature | + +---------+ + + + | Glucose, | 113 (H) | 70 - 110 mg/dL | [...] + + | [facility] | [address] | [place] [address] | [phone] | | [facility] | | | | + + + + + CBC with Differential (08/16/2017 5:40 AM PDT) + + + + + + | Component | Value | Ref Range | Performed | Pathologist | | | | | At | Signature | + + + + + + | WBC | 9.3 | 4.6 - 10.5 K/uL | [facility] | | | | [facility] | | | | | [facility] | | + + + + + + | RBC | 3.66 (L) | 4.36 - 5.83 | [facility] | | | | | M/uL | [facility] | | | | | | [facility] | | + + + + + + | Hemoglobin | 11.1 (L) | 13.1 - 17.4 | [facility] | | | | | g/dL | [facility] | | | | | | [facility] | | + + + + + + | Hct | 34.0 (L) | 39.0 - 51.9 % | [facility] | | | | [facility] | | | | | | [facility] | | + + + + + + | MCV | 92.9 | 82.0 - 96.0 fL | [facility] | | | | [facility] | | | | | [facility] | | + + + + + + | MCH | 30.3 | 27.7 - 32.3 pg | [facility] | | | | [facility] | | | | | | [facility] | | + + + + + + | MCHC | 32.6 | 32.0 - 36.9 | [facility] | | | | | g/dL | [facility] | | | | | | [facility] | | + + + + + + | RDW-CV | 16.1 | 0.0 - 17.0 % | [facility] | | | | | [facility] | | | | | | [facility] | | + + + + + + | Platelet | 101 (L) | 150 - 450 K/uL | [facility] | | | Count | | | [facility] | | | | | | [facility] | | + + + + + + | MPV | 11.3 | 9.4 - 12.4 fL | [facility] | | | | | [facility] | | | | | | [facility] | | + + + + + + | % | 63.8 | 42.0 - 76.0 % | [facility] | | | Neutrophils | | | [facility] | | | | | | [facility] | | + + + + + + | % | 17.8 (L) | 20.0 - 40.0 % | [facility] | | | Lymphocytes | | | [facility] | | | | | | [facility] | | + + + + + + | % Monocytes | 15.0 (H) | 0.0 - 12.0 % | [facility] | | | | | | [facility] | | | | | | [facility] | | + + + + + + | % | 1.8 | 0.0 - 7.0 % | [facility] | | | Eosinophils | | | [facility] | | | | | | [facility] | | + + + + + + | % Basophils | 0.4 | 0.0 - 2.0 % | [facility] | | | | | [facility] | | | | | | [facility] | | + + + + + + | % Immature | 1.2 (H) | 0.0 - 0.5 % | [facility] | | | Granulocyte | | | [facility] | | | [facility] | | | [facility] | | | | | | [facility]ATORY | | + + + + + + | Absolute | 5.91 | 2.80 - 7.70 | [facility] | | | Neutrophils | | K/uL | [facility] | | | | | | [facility] | | + + + + + + | Absolute | 1.65 | 1.20 - 3.30 | [facility] | | | Lymphocytes | | K/uL | [facility] | | | | | | [facility] | | + + + + + + | Absolute | 1.39 | 0.00 - 1.60 | [facility] | | | Monocytes | | K/uL | [facility] | | | | | | [facility] | | + + + + + + | Absolute | 0.17 | 0.00 - 0.70 | [facility] | [...] + + + + | Absolute | 0.11 | 0.00 - 0.15 | [facility] | | | Immature | | K/UL | [facility] | | | [facility] | | | [facility] | | | s | | | LABORATORY | | + + + + + + | % nRBC | 0 | 0 - 0 per 100 | [facility] | | | | | WBC's | [facility] | | | | [facility] | | | | | | LABORATORY | | + + + + + + | Absolute | 0.00 | 0.00 - 0.01 | [facility] | | | nRBC | | K/UL | [facility] | | | | | [...] + + | [facility] | [address] | [place] [address] | [phone] | | [facility] | | | | + + + + + Magnesium (08/16/2017 5:40 AM PDT) + +-------+ + + + | Component | Value | Ref Range | Performed | Pathologist | | | | | At | Signature | + +-------+ + + + | Magnesium | 2.2 | 1.8 - 2.4 mg/dL | [facility] [...] + + | [facility] | [address] | [place] [address] | [phone] | | [facility]ORY | | | | + + + + + POC Glucose (08/15/2017 9:33 PM PDT) + +---------+ + + + | Component | Value | Ref Range | Performed | Pathologist | | | | | At | Signature | + +---------+ + + + | Glucose, | 143 (H) | 70 - 110 mg/dL | [...] + + | [facility] | [address] | [place] [address] | [phone] | | [facility] | | | | + + + + + POC Glucose (08/15/2017 4:29 PM PDT) + +---------+ + + + | Component | Value | Ref Range | Performed | Pathologist | | | | | At | Signature | + +---------+ + + + | Glucose, | 132 (H) | 70 - 110 mg/dL | [...] + + | [facility] | [address] | [place] [address] | [phone] | | [facility] | | | | + + + + + Urinalysis with Microscopic with Culture if Indicated (08/15/2017 3:30 PM PDT) + + + + + + | Component | Value | Ref Range | Performed | Pathologist | | | | | At | Signature | + + + + + + | Color | Yellow | Pale Yellow, | [facility] | | [...] + + + + | Specific | 1.020 | 1.003 - 1.030 | [facility] | | | [place] | | | [facility] | | | | | | LABORATORY | | + + + + + + | Protein, | 15 mg/dL (A) | Negative | [facility] | | | Urine | | | [facility] | [facility] | | | | | | LABORATORY | | + + + + + + | Blood, | Negative | Negative | [facility] | | | Urine | | | [facility] | | [facility] | | | | | | LABORATORY | | + + + + + + | Glucose, | Normal | Normal | [facility] | | | Urine | | | [facility] | [facility] | [facility] | | | | | | LABORATORY | | + + + + + + | Ketones, | Negative | Negative | [facility] | | | Urine | | | [facility] | [facility] | | | [facility] | | | | | | LABORATORY | | + + + + + + | Bilirubin, | Negative | Negative | [facility] | [...] + + + + | Urobilinoge | Normal | 0-1.0 mg/dL | [facility] | | | n, Urine | | | [facility] | | | | | [facility] | | | | | | LABORATORY | | + + + + + + | WBC UA | None Seen | <=5 /HPF | [facility] | | | | | | [facility] | | [facility] | | | | | | [facility]ATORY | | + + + + + + | RBC UA | None Seen | <=5 /HPF | [facility] | | [...] + + + | BACTERIA UA | None Seen | None Seen /HPF | [facility] | | | | | [facility] | | | | | | [facility]ATORY | | + + + + + + | MUCUS UA | Few (A) | None seen /LPF | [facility] | | | | | [facility] | | | | | | [facility]ATORY | | + + + + + + | AMORPHOUS | Few (A) | None Seen /HPF | [facility] | | | [facility] | | | [facility] | | | [...] + + | [facility] | [address] | [place] [address] | [phone] | | [facility] | | | | + + + + + POC Glucose (08/15/2017 2:28 PM PDT) + +---------+ + + + | Component | Value | Ref Range | Performed | Pathologist | | | | | At | Signature | + +---------+ + + + | Glucose, | 226 (H) | 70 - 110 mg/dL | [...] + + | [facility] | [address] | [place] [address] | [phone] | | [facility] | | | | + + + + + Influenza A and B ADAM Spring (08/15/2017 11:50 AM PDT) + + + + + + | Component | Value | Ref Range | Performed | Pathologist | | | | | At | Signature | + + + + + + | Influenza A | Negative | Negative | [facility] | | | Ag, EIA | | | [facility] | | | | | | LABORATORY | | + + + + + + | Influenza B | Negative | Negative | [facility] | | | Ag, EIA | | | [facility] | [facility] | [facility] | | | | | | LAB[facility]ATORY | | + + + + + + + + | Specimen | + + | Tissue - Entire | | nasopharynx (body | | structure) | + + + + + | Narrative | Performed At | + + + | A negative test result may occur if the level of antigen in the | [facility] | | sample is below the detection limit of the test and should be | HOSPITAL | | confirmed by culture. | LABORATORY | + + + + + + + + | Performing | Address | City/State/Zipcode | Phone Number | | Organization | | | | + + + + + | [facility] | [address] | [place] [address] | [phone] | | [facility] | | | | + + + + + XR Chest PA and Lateral (08/15/2017 11:45 AM PDT) + + | Specimen | + + | | + + + + + | Impressions | Performed At | + + + | IMPRESSION: 1. Opacity left mid lower lung zone which could relate | [facility] | | to overlap of normal anatomy versus pneumonia. Follow-up to | | | demonstrate resolution recommended. 2. Atherosclerosis coronary | | | arteries. Dictated by: Troy Lawrence | | + + + + + + | Narrative | Performed At | + + + | EXAMINATION: XR CHEST PA AND LATERAL HISTORY: VOMITING | [facility] | | (SEVERE); FEVER (73 YEARS OLD OR >) COMPARISON STUDY: Chest | | | radiograph 07/05/2017. CT thorax 12/25/2016. FINDINGS: Vague | | | asymmetric opacity at the left mid lower lung zone is noted without | | | lobar consolidation. On the lateral projection no focal infiltrate | | | is seen at the posterior thorax. No pleural effusion seen. Heart | | | size within normal limits given AP projection. Atherosclerosis of | | | the coronary arteries present better appreciated on prior CT study. | | + + + + + | Procedure Note | + + | Osito, Rad Results In - 08/15/2017 12:14 PM PDT EXAMINATION:XR CHEST PA AND | | LATERALHISTORY:VOMITING (SEVERE); FEVER (73 YEARS OLD OR >)COMPARISON STUDY:Chest | | radiograph 07/05/2017.CT thorax 12/25/2016.FINDINGS:Vague asymmetric opacity at the left | | mid lower lung zone is noted without lobar consolidation. On the lateral projection no | | focal infiltrate is seen at the posterior thorax.No pleural effusion seen. Heart size | | within normal limits given AP projection. Atherosclerosis of the coronary arteries | | present better appreciated on prior CT study.IMPRESSION: IMPRESSION:1. Opacity left mid | | lower lung zone which could relate to overlap of normal anatomy versus pneumonia. | | Follow-up to demonstrate resolution recommended.2. Atherosclerosis coronary | | arteries.Dictated by: Troy Lawrence | | 12:10 PM | |Vague asymmetric opacity at the left mid lower lung zone is noted without lobar consolidati on. On the lateral projection no focal infiltrate is seen at the posterior thorax. | | | |No pleural effusion seen. Heart size within normal limits given AP projection. Atheroscle rosis of the coronary arteries present better appreciated on prior CT study. | | | |IMPRESSION: | |IMPRESSION: | |1. Opacity left mid lower lung zone which could relate to overlap of normal anatomy versus pneumonia. Follow-up to demonstrate resolution recommended. | |2. Atherosclerosis coronary arteries. | | | |Dictated by: Troy Lawrence | | | | | + + + +---------+ + + | Performing | Address | City/State/Zipcode | Phone Number | | Organization | | | | + +---------+ + + | [facility] | | | | + +---------+ + + TSH, Reflex Free T4 (08/15/2017 10:45 AM PDT) + +-------+ + + + | Component | Value | Ref Range | Performed | Pathologist | | | | | At | Signature | + +-------+ + + + | TSH | 3.42 | 0.36 - 3.74 | [facility] | [...] + + | [facility] | [address] | [place] [address] | [phone] | | [facility] | | | | + + + + + Culture, Blood (08/15/2017 10:45 AM PDT) + + + + + + | Component | Value | Ref Range | Performed | Pathologist | | | | | At | Signature | + + + + + + | Culture | No growth after 5 days | | [facility] | | | | incubation. | | [facility] | [facility] | | | | | | LABORATORY | | + + + + + + + + | Specimen | + + | Blood - Peripheral | | blood specimen | | (specimen) | + + + + + + + | Performing | Address | City/State/Zipcode | Phone Number | | Organization | | | | + + + + + | [facility] | [address] | [place] [address] | [phone] | | [facility] | | | | + + + + + Magnesium (08/15/2017 10:25 AM PDT) + +---------+ + + + | Component | Value | Ref Range | Performed | Pathologist | | | | | At | Signature | + +---------+ + + + | Magnesium | 1.5 (L) | 1.8 - 2.4 mg/dL | [facility] [...] + + | [facility] | [address] | [place] [address] | [phone] | | [facility] | | | | + + + + + Lactic Acid (08/15/2017 10:25 AM PDT) + +-------+ + + + | Component | Value | Ref Range | Performed | Pathologist | | | | | At | Signature | + +-------+ + + + | Lactate | 1.5 | 0.4 - 2.1 | [facility] | | | | | [...] + + | [facility] | [address] | [place] [address] | [phone] | | [facility] | | | | + + + + + Comprehensive Metabolic Panel (08/15/2017 10:25 AM PDT) + + + + + + | Component | Value | Ref Range | Performed | Pathologist | | | | | At | Signature | + + + + + + | Na | 143 | 132 - 143 | [facility] | | | | | mmol/L | [facility] | | | | | | [facility]ATORY | | + + + + + + | K | 3.9 | 3.3 - 4.9 | [facility] | | | | | mmol/L | [facility] | | | | | | LAB[facility]ATORY | | + + + + + + | Cl | 107 | 95 - 108 mmol/L | [facility] | | | | [facility] | | | | | | [facility] | | + + + + + + | CO2 | 31 | 23 - 34 mmol/L | [facility] | | | [facility] | | | | | | [facility] | | + + + + + + | Anion Gap | 5 (L) | 7 - 16 mmol/L | [facility] | | | | | [facility] | [facility] | | | | | | [facility] | | + + + + + + | Glucose | 134 (H) | 70 - 110 mg/dL | [facility] | | [facility] | [facility] | | | | | | [facility] | | + + + + + + | BUN | 17 | 5 - 26 mg/dL | [facility] | [facility] | | [facility] | | | | | | [facility] | | + + + + + + | Creatinine | 1.23 | 0.70 - 1.40 | [facility] | | | | | mg/dL | [facility] | | | | | | [facility]ATORY | | + + + + + + | eGFR if not | 57 (L)Comment: | >=60 | [facility] | | | | GLOMERULAR FILTRATION | mL/min/1.73m2 | [facility] | | | FINNISH | RATE,ESTIMATED | | [facility]OS[facility]ITAL | | | | mL/min/1.23x5Spie than | | LABORATORY | | | [...] + + + + | Calcium | 8.1 (L) | 8.3 - 10.0 | [facility] | | | | | mg/dL | [facility] | | | | | | [facility] | | + + + + + + | Albumin | 3.7 | 3.0 - 4.5 g/dL | [facility] | | | | | [facility] | | | | | | [facility] | | + + + + + + | Bilirubin | 0.9 | 0.0 - 1.2 mg/dL | [facility] [...] + + + + | AST | 45 (H) | 0 - 38 U/L | [facility] | | | | [facility] | | | | | | [facility] | | + + + + + + | ALT | 66 (H) | 16 - 63 U/L | [facility] | | [facility] | | | | | | [facility] | | + + + + + + | Alkaline | 59 | 46 - 116 U/L | [facility] | | | Phosphatase | | | [facility] | | | | | | LABORATORY | | + + + + + + | Globulin | 3.7 | g/dL | [facility] | | | | | [facility] | | | | | | [facility] | | + + + + + + | Albumin/Lizbeth | 1.0 | | [facility] | | | bulin Ratio | | | [facility] | | | | | | [facility] | | + + + + + + | BUN/Creatin | 13.8 | 7.0 - 24.0 | [facility] | [...] + + | [facility] | [address] | [place] [address] | [phone] | | [facility] | | | | + + + + + CBC with Differential (08/15/2017 10:25 AM PDT) + + + + + + | Component | Value | Ref Range | Performed | Pathologist | | | | | At | Signature | + + + + + + | WBC | 17.2 (H) | 4.6 - 10.5 K/uL | [facility] | | | [facility] | | | | | | [facility] | | + + + + + + | RBC | 4.39 | 4.36 - 5.83 | [facility] | | | | | M/uL | [facility] | | | | | | [facility] | | + + + + + + | Hemoglobin | 13.3 | 13.1 - 17.4 | [facility] | | | | | g/dL | [facility] | | | | | | [facility] | | + + + + + + | Hct | 40.4 | 39.0 - 51.9 % | [facility] | | | | | [facility] | | | | | | [facility] | | + + + + + + | MCV | 92.0 | 82.0 - 96.0 fL | [facility] | | | [facility] | | | | | | [facility] | | + + + + + + | MCH | 30.3 | 27.7 - 32.3 pg | [facility] | | | | | [facility] | | | | | | [facility] | | + + + + + + | MCHC | 32.9 | 32.0 - 36.9 | [facility] | | | | | g/dL | [facility] | | | | | | [facility] | | + + + + + + | RDW-CV | 15.9 | 0.0 - 17.0 % | [facility] | | | | | [facility] | | | | | | [facility] | | + + + + + + | Platelet | 133 (L) | 150 - 450 K/uL | [facility] | | | Count | | | [facility] | | | | | | [facility] | | + + + + + + | MPV | 11.8 | 9.4 - 12.4 fL | [facility] | | | | | [facility] | | | | | | [facility] | | + + + + + + | % | 86.8 (H) | 42.0 - 76.0 % | [facility] | | | Neutrophils | | | [facility] | | | | | | [facility] | | + + + + + + | % | 3.5 (L) | 20.0 - 40.0 % | [facility] | | | Lymphocytes | | | [facility] | | | | | | [facility] | | + + + + + + | % Monocytes | 7.9 | 0.0 - 12.0 % | [facility] | | | | | [facility] | | | | | | [facility] | | + + + + + + | % | 0.2 | 0.0 - 7.0 % | [facility] | | | Eosinophils | | | [facility] | | | | | | [facility] | | + + + + + + | % Basophils | 0.4 | 0.0 - 2.0 % | [facility] | | | | | [facility] | | | | | | [facility] | | + + + + + + | % Immature | 1.2 (H) | 0.0 - 0.5 % | [facility] | | | Granulocyte | | | [facility] | | | s | | | [facility] | | | | | | LABORATORY | | + + + + + + | Absolute | 14.93 (H) | 2.80 - 7.70 | [facility] | | | Neutrophils | | K/uL | [facility] | | | | | | [facility] | | + + + + + + | Absolute | 0.61 (L) | 1.20 - 3.30 | [facility] | | | Lymphocytes | | K/uL | [facility] | | | | | | [facility] | | + + + + + + | Absolute | 1.36 | 0.00 - 1.60 | [facility] | | | Monocytes | | K/uL | [facility] | | | | | | [facility] | | + + + + + + | Absolute | 0.04 | 0.00 - 0.70 | [facility] | | | Eosinophils | | K/uL | [facility] | | | | | | [facility] | | + + + + + + | Absolute | 0.07 | 0.00 - 0.20 | [facility] | | | Basophils | | K/uL | [facility] | | | | | | [facility] | | + + + + + + | Absolute | 0.20 (H) | 0.00 - 0.15 | [facility] | | | Immature | | K/UL | [facility] | | | [facility] | | | [facility] | | | s | | | LABORATORY | | + + + + + + | % nRBC | 0 | 0 - 0 per 100 | [facility] | | | | | WBC's | [facility] | | | | | | [facility] | | + + + + + + | Absolute | 0.00 | 0.00 - 0.01 | [facility] | | | nRBC | | K/UL | [facility] | | | | | [...] + + | [facility] | [address] | [place] [address] | [phone] | | [facility] | | | | + + + + + Culture, Blood (08/15/2017 10:25 AM PDT) + + + + + + | Component | Value | Ref Range | Performed | Pathologist | | | | | At | Signature | + + + + + + | Culture | No growth after 5 days | | [facility] | | | | incubation. | | [facility] | | | | | | [facility] | | + + + + + + + + | Specimen | + + | Blood - Swab of line | | insertion site | | (specimen) | + + + + + + + | Performing | Address | City/State/Zipcode | Phone Number | | Organization | | | | + + + + + | [facility] | [address] | [place] [address] | [phone] | | [facility] | | | | + + + + + documented in this encounter Visit Diagnoses + + | Diagnosis | + + | Pneumonia of left upper lobe due to infectious organism (HCC) - Primary | + + | Community acquired pneumonia of left lower lobe of lung (HCC) | + + documented in this encounter Administered Medications + +--------+ + +------+------+ | Medication Order | MAR | Action | Dose | Rate | Site | | | Action | Date | | | | + +--------+ + +------+------+ | acetaminophen (TYLENOL) tablet | Given | 08/16/19 | 1,000 mg | | | | 1,000 mg 1,000 mg, Oral, ONCE | | 18 11:36 | | | | | PRN, Pain, Starting 08/15/17 | | AM PDT | | | | | at 1109, For 1 dose | | | | | | + +--------+ + +------+------+ +---+---+ | | | +---+---+ + +-------+ +--------+---+---+ | aspirin EC tablet 325 mg 325 | Given | 08/17/19 | 325 mg | | | | mg, Oral, DAILY, First dose on | | 18 8:43 | | | | | 08/16/17 at 0900 | | AM PDT | | | | + +-------+ +--------+---+---+ +---+---+ | | | +---+---+ + +-------+ +-------+---+---+ | atorvaSTATin (LIPITOR) tablet | Given | 08/16/19 | 10 mg | | | | 10 mg 10 mg, Oral, NIGHTLY, | | 18 9:30 | | | | | First dose on Fri08/15/17 at 2100 | | PM PDT | | | | + +-------+ +-------+---+---+ +---+---+ | | | +---+---+ + +---------+ +--------+-------+---+ | azithromycin (ZITHROMAX) 500 mg | New Bag | 08/16/19 | 500 mg | 250 | | | in sodium chloride 0.9% 250 mL | | 18 12:17 | | mL/hr | | | IVPB 500 mg, Intravenous, | | PM PDT | | | | | Administer over 60 Minutes, ONCE, | | | | | | | 08/15/17 at 1130, For 1 dose, | | | | | | | Activate system and mix before | | | | | | | use., Indications: Pneumonia | | | | | | + +---------+ +--------+-------+---+ + +---+ | | | + +---+ | cefTRIAXone in dextrose | | | (ROCEPHIN) IVPB 1 g 1 g, | | | Intravenous, Administer over 30 | | | Minutes, EVERY 24 HOURS (Daily), | | | First dose on 08/16/17 at | | | 1100, Indications: Community | | | Acquired Pneumonia | | + +---+ | | | + +---+ + +---------+ +-----+-------+---+ | cefTRIAXone in dextrose | New Bag | 08/16/19 | 2 g | 100 | | | (ROCEPHIN) IVPB 2 g 2 g, | | 18 11:43 | | mL/hr | | | Intravenous, Administer over 30 | | AM PDT | | | | | Minutes, ONCE, Fri08/15/17 at | | | | | | | 1130, For 1 dose, Indications: | | | | | | | Pneumonia | | | | | | + +---------+ +-----+-------+---+ +---+---+ | | | +---+---+ + +-------+ +-------+---+ + | enoxaparin (LOVENOX) 40 mg/0.4 | Given | 08/16/19 | 40 mg | | Abdomen- | | mL injection 40 mg 40 mg, | | 18 4:09 | | | RLQ | | Subcutaneous, EVERY 24 HOURS | | PM PDT | | | | | (Daily), First dose on Fri | | | | | | | 08/15/17 at 1600 | | | | | | + +-------+ +-------+---+ + +---+---+ | | | +---+---+ + +-------+ + +---+ + | insulin glargine (LANTUS) 100 | Given | 08/16/19 | 35 Units | | Abdomen- | | units/mL injection (vial) 35 | | 18 9:33 | | | LLQ | | Units 35 Units, Subcutaneous, | | PM PDT | | | | | NIGHTLY, First dose on Fri | | | | | | | 08/15/17 at 2100, For subcutaneous | | | | | | | use only. Basal (long acting) | | | | | | | insulin. Only for use with U-100 | | | | | | | insulin syringe., | | | | | | + +-------+ + +---+ + +---+---+ | | | +---+---+ + +-------+ +---------+---+ + | insulin lispro (humaLOG) 100 | Given | 08/17/19 | 1 Units | | Arm-Left | | units/mL injection (vial) 0-12 | | 18 12:20 | | | Upper | | Units 0-12 Units, Subcutaneous, | | PM PDT | | | | | 4 TIMES DAILY WITH MEALS & | | | | | | | NIGHTLY, First dose on Fri | | | | | | | 08/15/17 at 1700, CORRECTION | | | | | | | SCALE: Blood Glucose (BG) < | | | | | | | 150: None BG | | | | | | | 150-200: DAY: 2 units. NIGHT: | | | | | | | 0 units BG 201-250: DAY: 4 | | | | | | | units. NIGHT: 2 units BG | | | | | | | 251-300: DAY: 6 units. NIGHT: | | | | | | | 4 units BG 301-350: DAY: 8 | | | | | | | units. NIGHT: 6 units BG | | | | | | | 351-400: DAY: 10 units. NIGHT: 8 | | | | | | | units BG > 400 : DAY: 12 | | | | | | | units. NIGHT: 10 units | | | | | | | AND CALL PROVIDER | | | | | | | , Use DAY DOSE for doses | | | | | | | scheduled: AC, NPO, Daytime | | | | | | | 2093-0968 Use NIGHT DOSE for | | | | | | | doses scheduled: HS, 3AM, | | | | | | | Nighttime 3228-8113 Only for use | | | | | | | with U-100 insulin syringe., | | | | | | + +-------+ +---------+---+ + +---+---+ | | | +---+---+ + +-------+ +---------+---+---+ | levothyroxine (SYNTHROID) | Given | 08/17/19 | 175 mcg | | | | tablet 175 mcg 175 mcg, Oral, | | 18 5:52 | | | | | DAILY BEFORE BREAKFAST, First | | AM PDT | | | | | dose on 08/16/17 at 0600, Give | | | | | | | before breakfast., | | | | | | + +-------+ +---------+---+---+ +---+---+ | | | +---+---+ + +-------+ +-------+---+---+ | losartan (COZAAR) tablet 50 mg | Given | 08/17/19 | 50 mg | | | | 50 mg, Oral, DAILY, First dose | | 18 8:44 | | | | | on 08/16/17 at 0900 | | AM PDT | | | | + +-------+ +-------+---+---+ +---+---+ | | | +---+---+ + +---------+ +-----+ +---+ | magnesium sulfate 2 g/50 mL | New Bag | 08/16/19 | 2 g | 25 mL/hr | | | IVPB 2 g 2 g, Intravenous, | | 18 1:36 | | | | | Administer over 120 Minutes, | | PM PDT | | | | | ONCE, 08/15/17 at 1230, For 1 | | | | | | | dose, Maximum recommended | | | | | | | infusion rate = 1 gram/hour., | | | | | | + +---------+ +-----+ +---+ +---+---+ | | | +---+---+ + +---------+ +-----+ +---+ | magnesium sulfate 2 g/50 mL | New Bag | 08/16/19 | 2 g | 25 mL/hr | | | IVPB 2 g 2 g, Intravenous, | | 18 3:25 | | | | | Administer over 120 Minutes, | | PM PDT | | | | | ONCE, 08/15/17 at 1500, For 1 | | | | | | | dose, Maximum recommended | | | | | | | infusion rate = 1 gram/hour., | | | | | | + +---------+ +-----+ +---+ +---+---+ | | | +---+---+ + +-------+ +-------+---+---+ | oxyCODONE (ROXICODONE) tablet | Given | 08/17/19 | 10 mg | | | | 10 mg 10 mg, Oral, 2 TIMES DAILY | | 18 12:18 | | | | | PRN, Pain, Starting 08/15/17 | | PM PDT | | | | | at 1335 | | | | | | + +-------+ +-------+---+---+ +-------+ +-------+---+---+ | Given | 08/17/19 | 10 mg | | | | | 18 8:44 | | | | | | AM PDT | | | | +-------+ +-------+---+---+ | Given | 08/16/19 | 10 mg | | | | | 18 9:29 | | | | | | PM PDT | | | | +-------+ +-------+---+---+ +---+---+ | | | +---+---+ + +-------+ +-------+---+---+ | pantoprazole (PROTONIX) DR | Given | 08/17/19 | 40 mg | | | | tablet 40 mg 40 mg, Oral, DAILY | | 18 5:52 | | | | | BEFORE BREAKFAST, First dose on | | AM PDT | | | | | 08/16/17 at 0600 | | | | | | + +-------+ +-------+---+---+ + +---+ | | | + +---+ | pregabalin (LYRICA) 100 mg | | | capsule Starting Fri08/15/17 at | | | 2227, For 1 dose, RENETTA, | | | JUSTINA Pettit: garrett bernstein, | | + +---+ | | | + +---+ + +-------+ +--------+---+---+ | pregabalin (LYRICA) capsule 300 | Given | 08/17/19 | 300 mg | | | | mg 300 mg, Oral, 2 TIMES DAILY, | | 18 8:43 | | | | | First dose on Fri08/15/17 at | | AM PDT | | | | | 2230 | | | | | | + +-------+ +--------+---+---+ +-------+ +--------+---+---+ | Given | 08/16/19 | 300 mg | | | | | 18 10:29 | | | | | | PM PDT | | | | +-------+ +--------+---+---+ +---+---+ | | | +---+---+ + +-------+ +--------+---+---+ | sertraline (ZOLOFT) tablet 150 | Given | 08/17/19 | 150 mg | | | | mg 150 mg, Oral, DAILY, First | | 18 8:44 | | | | | dose on 08/16/17 at 0900 | | AM PDT | | | | + +-------+ +--------+---+---+ +---+---+ | | | +---+---+ + +---------+ +--------+-------+---+ | sodium chloride 0.9% (NS) bolus | New Bag | 08/16/19 | 1,000 | 500 | | | 2,925 mL 2,925 mL (30 mL/kg | | 18 11:37 | mLs | mL/hr | | | 97.5 kg), Intravenous, | | AM PDT | | | | | Administer over 2 Hours, ONCE, | | | | | | | 08/15/17 at 1130, For 1 dose | | | | | | + +---------+ +--------+-------+---+ +---+---+ | | | +---+---+ + +---------+ +---+-------+---+ | sodium chloride 0.9% (NS) | New Bag | 08/17/19 | | 100 | | | infusion at 100 mL/hr, | | 18 2:41 | | mL/hr | | | Intravenous, CONTINUOUS, Starting | | AM PDT | | | | | 08/15/17 at 1515 | | | | | | + +---------+ +---+-------+---+ +---------+ +---+-------+---+ | New Bag | 08/16/19 | | 100 | | | | 18 3:25 | | mL/hr | | | | PM PDT | | | | +---------+ +---+-------+---+ +---+---+ | | | +---+---+ + +-------+ +-------+---+---+ | traZODone (DESYREL) tablet 50 | Given | 08/16/19 | 50 mg | | | | mg 50 mg, Oral, NIGHTLY, First | | 18 9:30 | | | | | dose on Fri08/15/17 at 2100 | | PM PDT | | | | + +-------+ +-------+---+---+ +---+---+ | | | +---+---+ documented in this encounter
--- OUTSIDE RECORDS SUMMARY | ~2019-02-17 | XMS | Encounter Summary ---
Demographics + + + | Address | [address] | | | [place] [address] | + + + | Home Phone [...] Providers + +------+ + | Care Machine Skiver Name | Role | Phone | + +------+ + | Horacio Silvestre DO | PCP | | + +------+ + Reason for Visit +---------+ + | Reason | Comments | +---------+ + | Results | | +---------+ + Encounter Details +--------+ + + + + | Date | Type | Department | Care Team | Description | +--------+ + + + + | 09/24/ | Telephone | [facility] | Horacio Silvestre, | Results | | 2019 | | [facility] | DO [address] | | | | | [facility] [address] | [place], [place] | | | | | [address] [place], | [address] | | | | | [place] [address] | [phone] | | | | | [phone] | | | +--------+ + + + [...] [place] | | | | | | [address] | | | | | | [phone] | | | | | | | | +--------+---------+ + + + | 02/26/ | Office | Urology | Lillie Fowler | | | 2018 | Visit | | [address] | | | | | | [address] | | | | | | [place] | | | | | | [address] | | | | | | [phone] | | | | | | | | +--------+---------+ + + + | 03/16/ | Office | Neurology | Theresa, | | | 2018 | Visit | | [address] | | | | | | [address] [place], | | | | | | [place] [address] | | | | | | [phone] | | | | | | | | +--------+---------+ + + + | 04/12/ | Office | Primary Care | Massimo Ramos | | | 2019 | Visit | | MD Fer [address] | | | | | | [place] | | | | | | [address] | | | | | | | | +--------+---------+ + + + | 10/03/ | Office | Neurology | Fabián Carias MD | | | 2019 | Visit | | [address] | | | | | | [place] | | | | | | [address] | | | | | | | [...] | | | care | | | Floatlight Loading Supervisor-C | | | | | | [...] | | | care | | | Floatlight Loading Supervisor-C | | | | | | [...] | | | care | | | Floatlight Loading Supervisor-C | | | | | | [...] | | | care | | | Floatlight Loading Supervisor-C | | | | | | [...]
--- OUTSIDE RECORDS SUMMARY | ~2019-02-17 | XMS | Encounter Summary ---
Demographics + + + | Address | [address] | | | [place] [address] | + + + | Home Phone [...] Team Providers + +------+ + | Care Piano Bench Assembler Name | Role | Phone | + [...] Description | +--------+---------+ + + + | 04/28/ | Surgery | [facility] | Tay Kern | CATARACT REMOVAL | | 2017 | | [facility] | MD [address] | | | | | [address] | [address] | | | | | [place] | [place] [address] | | | | | [address] | [phone] | | | | | [phone] | | | +--------+---------+ + + + [...] [place] | | | | | | [address] | | | | | | [phone] | | | | | | | | +--------+---------+ + + + | 02/26/ | Office | Urology | Lillie Fowler | | | 2018 | Visit | | [address] | | | | | | [address] | | | | | | [place], [place] | | | | | | [address] | | | | | | [phone] | | | | | | | | +--------+---------+ + + + | 03/16/ | Office | Neurology | Theresa, | | | 2018 | Visit | | [address] | | | | | | [address] [place], | | | | | | [place] [address] | | | | | | [phone] | | | | | | | | +--------+---------+ + + + | 04/12/ | Office | Primary Care | Massimo Ramos Pedro Luis | | | 2019 | Visit | | MD Fer [address] | | | | | | [place] | | | | | | [address] | | | | | | | | +--------+---------+ + + + | 10/03/ | Office | Neurology | Fabián Carias MD | | | 2019 | Visit | | [address] | | | | | | [place] | | | | | | [address] | | | | | | | [...] | | | care | | | Wagon Person-C | | | | | | | [...] | | | care | | | Wagon Person-C | | | | | | | [...] | | | care | | | Wagon Person-C | | | | | | | [...] | | | care | | | Wagon Person-C | | | | | | | [...] + + + + + | [facility] | [address] | [place] [address] | [phone] | | [facility] | | | | + + + + + documented in this encounter Visit Diagnoses Not on filedocumented in this encounter Administered Medications + +--------+ + +------+ + | Medication Order | MAR | Action | Dose | Rate | Site | | | Action | Date | | | | + +--------+ + +------+ + | balanced salts sterile | Given | 04/28/19 | 1 | | Surgical | | ophthalmic irrigation solution | | 18 9:36 | Applicat | | Site | | PRN, Starting 04/28/17 at | | AM PST | ion | | | | 0936, Intra-op | | | | | | + +--------+ + +------+ + +---+---+ | | | +---+---+ + +-------+ +---------+---+ + | carbachol (MIOSTAT) 0.01% | Given | 04/28/19 | 0.5 mLs | | [facility] | | ophthalmic solution PRN, | | 18 9:36 | | | t | | Starting 04/28/17 at 0936, | | AM PST | | | | | Intra-op | | | | | | + +-------+ +---------+---+ + +---+---+ | | | +---+---+ + +-------+ +---------+---+ + | chondroitin-hyaluronate | Given | 04/28/19 | 0.5 mLs | | [facility] | | (VISCOAT) intraocular injection | | 18 9:36 | | | t | | PRN, Starting 04/28/17 at | | AM PST | | | | | 0936, Intra-op | | | | | | + +-------+ +---------+---+ + +---+---+ | | | +---+---+ + +-------+ +--------+---+---+ | cyclopentolate (CYCLOGYL) 1% | Given | [...] | +---+---+ + +-------+ +---------+---+ + | hyaluronate (HEALON GV) 14 | Given | 04/28/19 | 11.9 mg | | [facility] | | mg/mL intraocular injection PRN, | | 18 9:36 | | | t | | Starting Fri04/28/17 at 0936, | | AM PST | | | | | Intra-op | | | | | | + [...] | | | | First dose on Fri04/28/17 at | | | | | | [...] | +---+---+ + +-------+ +--------+---+ + | ketorolac (ACULAR) 0.5% | Given | 04/28/19 | 1 drop | | [facility] | | ophthalmic solution PRN, | | 18 9:36 | | | t | | Starting 04/28/17 at 0936, | | AM PST | | | | | Intra-op | | | | | | + +-------+ +--------+---+ + +---+---+ | | | +---+---+ + +---------+ [...] +---+---+ | | | +---+---+ + +-------+ +------+---+ + | lidocaine (PF) 2% injection | Given | 04/28/19 | 1 mL | | Surgical | | PRN, Starting 04/28/17 at | | 18 9:36 | | | Site | | 0936, Intra-op | | AM PST | | | | + +-------+ +------+---+ + +---+---+ | | | +---+---+ + +-------+ +------+---+ + | lidocaine 1% injection PRN, | Given | 04/28/19 | 1 mL | | Surgical | | Starting 04/28/17 at 0936, | | 18 9:36 | | | Site | | Intra-op | | AM PST | | | | + +-------+ +------+---+ + +---+---+ | | | +---+---+ + [...] | +---+---+ + +-------+ +--------+---+ + | ofloxacin (OCUFLOX) 0.3% | Given | 04/28/19 | 1 drop | | [facility] | | ophthalmic solution PRN, | | 18 9:36 | | | t | | Starting 04/28/17 at 0936, | | AM PST | | | | | Intra-op | | | | | | + +-------+ +--------+---+ + +---+---+ | | | +---+---+ + [...] | +---+---+ + +-------+ +--------+---+ + | prednisoLONE (PRED FORTE) 1% | Given | 04/28/19 | 1 drop | | [facility] | | ophthalmic suspension PRN, | | 18 9:36 | | | t | | Starting Fri04/28/17 at 0936, | | AM PST | | | | | Intra-op | | | | | | + +-------+ +--------+---+ + +---+---+ | | | +---+---+ + [...] | +---+---+ + +-------+ +--------+---+ + | tetracaine (PONTOCAINE) 0.5% | Given | 04/28/19 | 1 drop | | [facility] | | ophthalmic solution PRN, | | 18 9:36 | | | t | | Starting Fri04/28/17 at 0936, | | AM PST | | | | | Intra-op | | | | | | + +-------+ +--------+---+ + +---+---+ | | | +---+---+ + [...]
--- OUTSIDE RECORDS SUMMARY | ~2019-02-17 | XMS | Encounter Summary ---
Demographics + + + | Address | [address] | | | [place] [address] | + + + | Home Phone | | + + + | Preferred Language | Unknown | + + + | Marital Status | | + + + | Latter-Day Affiliation | 1025 | + + + | Race | Unknown | + + + | Ethnic Group | Unknown | + + + Author + + + | Author | [facility] | | | and [place] | + + + | Organization | [facility] | | | [...] Team Providers + +------+ + | Care Electric Tripper 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 Name | Role | Phone | + +------+ + | Ryan Gutiérrez MD | PCP | | + +------+ + Encounter Details +--------+ + + + + | Date | Type | Department | Care Team | Description | +--------+ + + + + | 04/15/ | Hospital | [facility] | Luciano Diana | | | 2017 | Encounter | [facility] | MD [address] | | | | | CENTER [address] | [address] | | | | | DR [place], [place] | [place] [address] | | | | | [address] | [phone] | | | | | [phone] | | | +--------+ + + + [...] [place] | | | | | | [address] | | | | | | [phone] | | | | | | | | +--------+---------+ + + + | 02/26/ | Office | Urology | Lillie Fowler | | | 2018 | Visit | | [address] | | | | | | [address] | | | | | | [place] | | | | | | [address] | | | | | | [phone] | | | | | | | | +--------+---------+ + + + | 03/16/ | Office | Neurology | Theresa, | | | 2018 | Visit | | [address] | | | | | | [address] [place], | | | | | | [place] [address] | | | | | | [phone] | | | | | | | | +--------+---------+ + + + | 04/12/ | Office | Primary Care | Massimo Ramos | | | 2019 | Visit | | MD Fer [address] | | | | | | [place] | | | | | | [address] | | | | | | | | +--------+---------+ + + + | 10/03/ | Office | Neurology | Fabián Carias MD | | | 2019 | Visit | | [address] | | | | | | [place] | | | | | | [address] | | | | | | | [...] | | | care | | | Home Manager-C | | | | | | [...] | | | care | | | Home Manager-C | | | | | | [...] | | | care | | | Home Manager-C | | | | | | [...] | | | care | | | Home Manager-C | | | | | | | linical | + +--------+ +---+-----+ + + + | Note: Pt will | | check CBG's daily x1 | | Pt will take Lantis as | | prescribed | + + documented as of this encounter Visit Diagnoses Not on filedocumented in this encounter"
--- OUTSIDE RECORDS SUMMARY | ~2019-02-17 | XMS | Encounter Summary ---
Demographics + + + | Address | [address] | | | [place] [address] | + + + | Home Phone | | + + + | Preferred Language | Unknown | + + + | Marital Status | | + + + | Gnosticism Affiliation | 1025 | + + + | Race | Unknown | + + + | Ethnic Group | Unknown | + + + Author + + + | Author | [facility] | | | and [place] | + + + | Organization | [facility] | | [...] Team Providers + +------+ + | Care Billet Heater Name | Role | Phone | + +------+ + | Horacio Silvestre DO | PCP | | + +------+ + Reason for Visit + + + | Reason | Comments | + + + | Hospital Follow-up | | + + + Encounter Details +--------+ + + + + | Date | Type | Department | Care Team | Description | +--------+ + + + + | 07/29/ | Telephone | [facility] | Ally Tian, | Hospital Follow-up | | 2019 | | [facility] | PharmD [address] | | | | [address] | [address] [place] | | | | | [place] [address] | [place] [address] | | | | | [phone] | [phone] | | +--------+ + + + + [...] [place] | | | | | | [address] | | | | | | [phone] | | | | | | | | +--------+---------+ + + + | 02/26/ | Office | Urology | Lillie Fowler | | | 2018 | Visit | | [address] | | | | | | [address] | | | | | | [place], [place] | | | | | | [address] | | | | | | [phone] | | | | | | | | +--------+---------+ + + + | 03/16/ | Office | Neurology | Theresa, | | | 2018 | Visit | | [address] | | | | | | [address] [place], | | | | | | [place] [address] | | | | | | [phone] | | | | | | | | +--------+---------+ + + + | 04/12/ | Office | Primary Care | Massimo Ramos | | | 2019 | Visit | | MD Fer [address] | | | | | | [place] | | | | | | [address] | | | | | | | | +--------+---------+ + + + | 10/03/ | Office | Neurology | Fabián Carias MD | | | 2019 | Visit | | [address] | | | | | | [place] | | | | | | [address] | | | | | | | [...] | | | care | | | Weaver Dobby Loom-C | | | | | | | [...] | | | care | | | Weaver Dobby Loom-C | | | | | | | [...] yle | n of | | | Chalrine Dos Santos, | | | | complex | | | Case | | | | care | | | Weaver Dobby Loom-C | | | | | | | [...] | | | care | | | Weaver Dobby Loom-C | | | | | | | [...]
--- OUTSIDE RECORDS SUMMARY | ~2019-02-17 | XMS | Encounter Summary ---
Demographics + + + | Address | [address] | | | [place] [address] | + + + | Home Phone | | + + + | Preferred Language | Unknown | + + + | Marital Status | | + + + | Lutheran Affiliation | 1025 | + + + | Race | Unknown | + + + | Ethnic Group | Unknown | + + + Author + + + | Author | [facility] | | | and [place] | + + + | Organization | [facility] | | | [...] Team Providers + +------+ + | Care Merchandise Clerk Name | Role | Phone | + [...] Description | +--------+--------+ + + + | 12/09/ | Refill | [facility] | Horacio Silvestre, | Medication Refill | | 2017 | | [facility] | [address] | | | | | MEDICAL CL[facility] | [facility], [place] | | | | | [address] [place], | [address] | | | | | [place] [address] | [phone] | | | | | [phone] | | | +--------+--------+ + + + [...] [place] | | | | | | [address] | | | | | | [phone] | | | | | | | | +--------+---------+ + + + | 02/26/ | Office | Urology | Lillie Fowler | | | 2018 | Visit | | [address] | | | | | | [address] | | | | | | [place], [place] | | | | | | [address] | | | | | | [phone] | | | | | | | | +--------+---------+ + + + | 03/16/ | Office | Neurology | Theresa, | | | 2018 | Visit | | [address] | | | | | | [address] [place], | | | | | | [place] [address] | | | | | | [phone] | | | | | | | | +--------+---------+ + + + | 04/12/ | Office | Primary Care | Massimo Ramos | | | 2019 | Visit | | MD Fer [address] | | | | | | [place] | | | | | | [address] | | | | | | | | +--------+---------+ + + + | 10/03/ | Office | Neurology | Fabián Carias MD | | | 2019 | Visit | | [address] | | | | | | [place] | | | | | | [address] | | | | | | | [...] | | | care | | | Chisel Mortiser Operator-C | | | | | | [...] | | | care | | | Chisel Mortiser Operator-C | | | | | | [...] | | | care | | | Chisel Mortiser Operator-C | | | | | | [...] | | | care | | | Chisel Mortiser Operator-C | | | | | | [...] | | unspecified | + + | 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
--- OUTSIDE RECORDS SUMMARY | ~2019-02-17 | XMS | Encounter Summary ---
Demographics + + + | Address | [address] | | | [place] [address] | + + + | Home Phone | | + + + | Preferred Language | Unknown | + + + | Marital Status | | + + + | Mormonism Affiliation | 1025 | + + + | Race | Unknown | + + + | Ethnic Group | Unknown | + + + Author + + + | Author | [facility] | | | and [place] | + + + | Organization | [facility] | | | [...] Team Providers + +------+ + | Care Avionics Test Technician Name | Role | Phone | + +------+ + | Horacio Silvestre DO | PCP | | + +------+ + Reason for Visit + + + | Reason | Comments | + + + | Results, Imaging | | + + + Encounter Details +--------+ + + + + | Date | Type | Department | Care Team | Description | +--------+ + + + + | 05/22/ | Telephone | [facility] | Fabián Carias MD | Results, Imaging | | 2019 | | HOSPITAL [facility] | [address] | | | | | CLINIC [address] | [place] | | | | | [address] [place], | [address] | | | | | [place] [address] | | | | | | [phone] | | | +--------+ + + + [...] [place] | | | | | | [address] | | | | | | [phone] | | | | | | | | +--------+---------+ + + + | 02/26/ | Office | Urology | Lillie Fowler | | | 2018 | Visit | | [address] | | | | | | [address] | | | | | | [place], [place] | | | | | | [address] | | | | | | [phone] | | | | | | | | +--------+---------+ + + + | 03/16/ | Office | Neurology | Theresa, | | | 2018 | Visit | | [address] | | | | | | [address] [place], | | | | | | [place] [address] | | | | | | [phone] | | | | | | | | +--------+---------+ + + + | 04/12/ | Office | Primary Care | Richard Massimo Pedro Luis | | | 2019 | Visit | | MD Fer [address] | | | | | | [place] | | | | | | [address] | | | | | | | | +--------+---------+ + + + | 10/03/ | Office | Neurology | Fabián Carias MD | | | 2019 | Visit | | [address] | | | | | | [place] | | | | | | [address] | | | | | | | [...] | n of | | | Charline Dso Santos, | | dehydration | | complex | | | Case | | | | care | | | Horses Or Mules Teamster-C | | | | | | | [...] | | | care | | | Horses Or Mules Teamster-C | | | | | | | [...] | | | care | | | Horses Or Mules Teamster-C | | | | | | | [...] | | | care | | | Horses Or Mules Teamster-C | | | | | | | linical | + +--------+ +---+-----+ + + + | Note: Pt will | | check CBG's daily x1 | | Pt will take Lantis as | | prescribed | + + documented as of this encounter Visit Diagnoses Not on filedocumented in this encounter"
--- OUTSIDE RECORDS SUMMARY | ~2019-02-17 | XMS | Encounter Summary ---
Demographics + + + | Address | [address] | | | [place] [address] | + + + | Home Phone [...] Team Providers + +------+ + | Care Insurance Appraiser Name | Role | Phone | + [...] | +--------+ + + + + | 10/21/ | Telephone | [facility] | Horacio Silvestre, | Home Health | | 2019 | | [facility] | DO [address] [place] | | | | | MEDICAL CLIN[facility] [address] | [facility] [place] | | | | | [address] [place], | [address] | | | | | [place] [address] | [phone] | | | | | [phone] | | | +--------+ + + + [...] [place] | | | | | | [address] | | | | | | [phone] | | | | | | | | +--------+---------+ + + + | 02/26/ | Office | Urology | Lillie Fowler | | | 2018 | Visit | | [address] | | | | | | [address] | | | | | | [place], [place] | | | | | | [address] | | | | | | [phone] | | | | | | | | +--------+---------+ + + + | 03/16/ | Office | Neurology | Theresa, | | | 2018 | Visit | | [address] | | | | | | [address] [place], | | | | | | [place] [address] | | | | | | [phone] | | | | | | | | +--------+---------+ + + + | 04/12/ | Office | Primary Care | Massimo Ramos | | | 2019 | Visit | | MD Fer [address] | | | | | | [place] | | | | | | [address] | | | | | | | | +--------+---------+ + + + | 10/03/ | Office | Neurology | Fabián Carias MD | | | 2019 | Visit | | [address] | | | | | | [place] | | | | | | [address] | | | | | | | [...] | | | care | | | Licensed Prosthetist-C | | | | | | | [...] | | | care | | | Licensed Prosthetist-C | | | | | | | [...] | | | care | | | Licensed Prosthetist-C | | | | | | | [...] | | | care | | | Licensed Prosthetist-C | | | | | | | [...]
--- OUTSIDE RECORDS SUMMARY | ~2019-02-17 | XMS | Encounter Summary ---
Demographics + + + | Address | [address] | | | [place] [address] | + + + | Home Phone | | + + + | Preferred Language | Unknown | + + + | Marital Status | | + + + | Caodaism Affiliation | 1025 | + + + [...] Team Providers + +------+ + | Care News Librarian Name | Role | Phone | + [...] | | [address] [place] | [facility] | infectious organism | | 08/16/ | | [place], [place] | [place] [address] | ([facility]) (Primary Dx) | | 2018 | | [address] | [phone] | | | | | [phone] | | | | | | | Faizan Wesley, | | | | | | [address] | | | | | | [place] [address] | | | | | | [phone] | | | | | | | [...] nonseasonal allergic rhinitis due to pollen 03/07/2017 intermediate current use of aspirin 03/07/2017 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 [address] [place] [address]. All righ ts reserved. This information is [...] | | | | | | disease, intermediate | | | | | | | [...] in Major discrepancies noted: None Please see [facility] med list for updated medication list. Electronically [...] [place] | | | | | | [address] | | | | | | [phone] | | | | | | | | +--------+---------+ + + + | 02/26/ | Office | Urology | Lillie Fowler | | | 2018 | Visit | | [address] | | | | | [address] | | | | | | [place], [place] | | | | | | [address] | | | | | | [phone] | | | | | | | | +--------+---------+ + + + | 03/16/ | Office | Neurology | Theresa, | | | 2018 | Visit | | [address] | | | | | | [address] [place], | | | | | | [place] [address] | | | | | | [phone] | | | | | | | | +--------+---------+ + + + | 04/12/ | Office | Primary Care | Massimo Ramos | | | 2019 | Visit | | MD Fer [address] | | | | | | [place] | | | | | | [address] | | | | | | | | +--------+---------+ + + + | 10/03/ | Office | Neurology | Fabián Carias MD | | | 2020 | Visit | | [address] | | | | | | [place] | | | | | | [address] | | | | | | | [...] | | | care | | | Farm Equipment Assembler-C | | | | | | | [...] | | | care | | | Farm Equipment Assembler-C | | | | | | | [...] | | | care | | | Farm Equipment Assembler-C | | | | | | | [...] | | | care | | | Farm Equipment Assembler-C | | | | | | | [...] + + | [facility] | [address] | [place] [address] | [phone] | | [facility] | | | [...] + + | [facility] | [address] | [place] [address] | [phone] | | [facility] | | | [...] + + | [facility] | [address] | [place] [address] | [phone] | | [facility] | | | [...] + + | [facility] | [address] | [place] [address] | [phone] | | [facility]ITAL [facility] | | | [...] + + | [facility] | [address] | [place] [address] | [phone] | | [facility] | | | [...] + + | [facility] | [address] | [place] [address] | [phone] | | [facility] | | | [...] - 1.030 | [facility] | | | [place] | | | [facility] | | | [...] + + | [facility] | [address] | [place] [address] | [phone] | | [facility] | | | [...] + + | [facility] | [address] | [place] [address] | [phone] | | H[facility]ITAL [facility] | | | [...] + + | [facility] | [address] | [place] [address] | [phone] | | H[facility]ITAL [facility] | | | [...] recommended.2. Atherosclerosis coronary | | arteries.Dictated by: Tory Lawrence | | 12:10 PM | |Vague [...] + + | [facility] | [address] | [place] [address] | [phone] | | HOSPITAL [facility] | | | [...] + + | [facility] | [address] | [place] [address] | [phone] | | HOSPITAL [facility] | | | [...] + + | [facility] | [address] | [place] [address] | [phone] | | [facility] | | | [...] + + | [facility] | [address] | [place] [address] | [phone] | | [facility] | | | [...] | mL/min/1.73m2 | [facility] | | | GABONESE | RATE,ESTIMATED | | [facility] | | | | mL/min/1.97m2Wguo than | | LABORATORY | | | [...] + + | [facility] | [address] | [place] [address] | [phone] | | [facility] | | | [...] 0.2 | 0.0 - 7.0 % | [facility] [...] + + | [facility] | [address] | [place] [address] | [phone] | | [facility] | | | [...] + + | [facility] | [address] | [place] [address] | [phone] | | [facility] | | | [...] | | | | | | | 0531-5112 Use NIGHT DOSE for | | | | | | | doses scheduled: HS, 3AM, | | | | | | | Nighttime 0403-8676 Only for use | | | | [...]
--- OUTSIDE RECORDS SUMMARY | ~2019-02-17 | XMS | Encounter Summary ---
Demographics + + + | Address | [address] | | | [place] [address] | + + + | Home Phone | | + + + | Preferred Language | Unknown | + + + | Marital Status | | + + + | Jew Affiliation | 1025 | + + + | Race | Unknown | + + + | Ethnic Group | Unknown | + + + Author + + + | Author | [facility] | | | and [place] | + + + | Organization | [facility] | | | and [place] | + + + | Address | Unknown | + + + | Phone | Unavailable | + + + Support + + +---------+ + | Name | Relationship | Address | Phone | + + +---------+ + | lEla Mcfadden | ECON | Unknown | | + + +---------+ + | Juan Gill | ECON | Unknown | | + + +---------+ + Care Team Providers + +------+ + | Care Pit Tanner Name | Role | Phone | + +------+ + | Ryan Gutiérrez MD | PCP | | + +------+ + Encounter Details +--------+ + + + + | Date | Type | Department | Care Team | Description | +--------+ + + + + | 10/22/ | Hospital | [facility] | [facility] | | | 2017 | Encounter | [facility] | [address] | | | | | C[address] | [facility] | | | | | DR [place], [place] | [place] [address] | | | | | [address] | [phone] | | | | | [phone] | | | +--------+ + + + [...] [place] | | | | | | [address] | | | | | | [phone] | | | | | | | | +--------+---------+ + + + | 02/26/ | Office | Urology | Lillie Fowler | | | 2018 | Visit | | LILLIE Lopez [address] | | | | | | [address] | | | | | | [place] | | | | | | [address] | | | | | | [phone] | | | | | | | | +--------+---------+ + + + | 03/16/ | Office | Neurology | Theresa, | | | 2018 | Visit | | [address] | | | | | [address] [place], | | | | | | [place] [address] | | | | | | [phone] | | | | | | | | +--------+---------+ + + + | 04/12/ | Office | Primary Care | Massimo Ramos | | | 2019 | Visit | | MD [address] | | | | | | [place] | | | | | | [address] | | | | | | | | +--------+---------+ + + + | 10/03/ | Office | Neurology | Fabián Carias MD | | | 2019 | Visit | | [address] | | | | | | [place] | | | | | | [address] | | | | | | | [...] | | | care | | | Quality Liaison-C | | | | | | | [...] | | | care | | | Quality Liaison-C | | | | | | | [...] | | | care | | | Quality Liaison-C | | | | | | | [...] | | | care | | | Quality Liaison-C | | | | | | | [...] + | CBC W/AUTO | STAT | 10/22/2016 | | Results for this | | DIFFERENTIAL | | 12:17 PM | | procedure are in the | | | | PDT | | results section. | + +--------+ + + + | PROTIME INR | STAT | 10/22/2016 | | Results for this | | | | 12:17 PM | | procedure are in the | | | | PDT | | results section. | + +--------+ + + + | TSH | STAT | 10/22/2016 | | Results for this | | | | 12:17 PM | | procedure are in the | | | | PDT | | results section. | + +--------+ + + + | LACTIC ACID | STAT | 10/22/2016 | | Results for this | | | | 12:17 PM | | procedure are in the | | | | PDT | | results section. | + +--------+ + + + | ALCOHOL | STAT | 10/22/2016 | | Results for this | | | | 12:17 PM | | procedure are in the | | | | PDT | | results section. | + +--------+ + + + | COMPREHENSIVE | STAT | 10/22/2016 | | Results for this | | METABOLIC PANEL | | 12:17 PM | | procedure are in the | | | | PDT | | results section. | + +--------+ + + + | POC GLUCOSE, | Routin | 10/22/2016 | | Results for this | | [facility] | e | 11:52 AM | | procedure are in the | | | | PDT | | results section. | + +--------+ + + + | CT HEAD WO CONTRAST | Routin | 10/22/2016 | | Results for this | | | e | 11:39 AM | | procedure are in the | | | | PDT | | results section. | + +--------+ + + + | XR CHEST PA OR AP | Routin | 10/22/2016 | | Results for this | | | e | 11:39 AM | | procedure are in the | | | | PDT | | results section. | + +--------+ + + + documented in this encounter Results Lactic Acid (10/22/2016 12:17 PM PDT) + +-------+ + + + | Component | Value | Ref Range | Performed | Pathologist | | | | | At | Signature | + +-------+ + + + | Lactate, | 1.2 | 0.4 - 2.1 | EXTERNAL | [...] | | + +---------+ + + TSH (10/22/2016 12:17 PM PDT) + +-------+ + + + | Component | Value | Ref Range | Performed | Pathologist | | | | | At | Signature | + +-------+ + + + | TSH | 1.47 | 0.36 - 3.74 | EXTERNAL | | | | | mIU/L | LAB | | + +-------+ + + + + + | Specimen | + + | | + + + +---------+ + + | Performing | Address | City/State/Zipcode | Phone Number | | Organization | | | | + +---------+ + + | EXTERNAL LAB | | | | + +---------+ + + Ofelia RILEY (10/22/2016 12:17 PM PDT) + +-------+ + + + | Component | Value | Ref Range | Performed | Pathologist | | | | | At | Signature | + +-------+ + + + | Prothrombin | 14.3 | 12.3 - 14.1 SEC | EXTERNAL | | | Time | | | LAB | | + +-------+ + + + | INR | 1.09 | | EXTERNAL | | | | [...] + +---------+ + + Comprehensive Metabolic Panel (10/22/2016 12:17 PM PDT) + +-------+ + + + [...] +-------+ + + + | CO2 | 25 | 23 - 34 mmol/L | EXTERNAL | | | | | | LAB | | + +-------+ + + + | Anion Gap | 10 | 7 - 16 | EXTERNAL | | | | | | LAB | | + +-------+ + + + | Calcium | 9.3 | 8.3 - 10.0 | EXTERNAL | | | | | mg/dL | LAB | | + +-------+ + + + | Glucose | 147 | 70 - 110 mg/dL | EXTERNAL | | | | | | LAB | | + +-------+ + + + | BUN, Bld | 19 | 5 - 26 mg/dL | EXTERNAL | | | | | | LAB | | + +-------+ + + + | Creatinine | 0.95 | 0.70 - 1.40 | EXTERNAL | | | | | mg/dL | LAB | | + +-------+ + + + | BUN/Creatin | 20 | 7.0 - 24.0 | EXTERNAL | [...] +-------+ + + + | Albumin | 4.5 | 3.0 - 4.5 g/dL | EXTERNAL | | | | | | LAB | | + +-------+ + + + | Alkaline | 77 | 46 - 116 U/L | EXTERNAL | | | Phosphatase | | | LAB | | + +-------+ + + + | ALT, | 34 | 16 - 63 U/L | EXTERNAL [...] +---------+ + + CBC w/ Auto Differential (10/22/2016 12:17 PM PDT) + +-------+ + + + | Component | Value | Ref Range | Performed | Pathologist | | | | | At | Signature | + +-------+ + + + | WBC | 10.4 | 4.6 - 10.5 | EXTERNAL | | | | | 1000/mm3 | LAB | | + +-------+ + + + | RBC | 4.91 | 4.36 - 5.83 | EXTERNAL | | | | | mil/mm3 | LAB | | + +-------+ + + + | HGB, | 14.4 | 13.1 - 17.4 | EXTERNAL | | | External | | g/dL | LAB | | + +-------+ + + + | HCT, | 43 | 39.0 - 51.9 % | EXTERNAL | | | External | | | LAB | | + +-------+ + + + | MCV | 88 | 82 - 96 fl | EXTERNAL | | | | | | LAB | | + +-------+ + + + | MCH | 29.3 | 27.7 - 32.3 pg | EXTERNAL | | | | | | LAB | | + +-------+ + + + | MCHC | 33.5 | 32.0 - 36.9 | EXTERNAL | | | | | g/dL | LAB | | + +-------+ + + + | RDW-CV | 15.5 | <=17.0 % | EXTERNAL | | | | | | LAB | | + +-------+ + + + | RDW-SD | 49.5 | 34.0 - 57.0 fL | EXTERNAL | | | | | | LAB | | + +-------+ + + + | Platelet | 151 | 150 - 450 | EXTERNAL | | | Count | | 1000/mm3 | LAB | | | Plasma | | | | | + +-------+ + + + | MPV | 11.8 | 9.4 - 12.4 FL | EXTERNAL | | | | | | LAB | | + +-------+ + + + | % Segmented | 60 | 42.0 - 76.0 % | EXTERNAL | | | | | | LAB | | | Neutrophils | | | | | + +-------+ + + + | % | 23.6 | 20.0 - 40.0 % | EXTERNAL | | | Lymphocytes | | | LAB | | + +-------+ + + + | % Monocytes | 13 | 3.0 - 13.0 % | EXTERNAL | | | | | | LAB | | + +-------+ + + + | % | 1.8 | 0.0 - 7.0 % | EXTERNAL | | | Eosinophils | | | LAB | | + +-------+ + + + | % Basophils | 0.6 | 0.0 - 2.0 % | EXTERNAL | | | | | | LAB | | + +-------+ + + + | % Immature | 1 | 0.0 - 0.5 % | EXTERNAL | | | Granulocyte | | | LAB | | | s | | | | | + +-------+ + + + | % nRBC | 0 | 0.0 - 0.2 /100 | EXTERNAL | | | | | WBC | LAB | | + +-------+ + + + | Absolute | 6.24 | 2.80 - 7.70 | EXTERNAL | | | Neutrophils | | 1000/mm3 | LAB | | + +-------+ + + + | Absolute | 2.45 | 1.20 - 3.30 | EXTERNAL | | | Lymphocytes | | 1000/mm3 | LAB | | + +-------+ + + + | Absolute | 1.35 | 0.00 - 0.80 | EXTERNAL | | | Monocytes | | 1000/mm3 | LAB | | + +-------+ + + + | Absolute | 0.19 | 0.00 - 0.70 | EXTERNAL | | | Eosinophils | | 1000/mm3 | LAB | | + +-------+ + + + | Absolute | 0.06 | 0.00 - 0.20 | EXTERNAL | | | Basophils | | 1000/mm3 | LAB | | + +-------+ + + + | Absolute | 0.1 | 0.00 - 0.15 | EXTERNAL | | | Immature | | 1000/mm3 | LAB | | | Granulocyte | | | | | | s | | | | | + +-------+ + + + | Absolute | 0.01 [...] | | | + +---------+ + + Ethanol (10/22/2016 12:17 PM PDT) + +-------+ + + + | Component | Value | Ref Range | Performed | Pathologist | | | | | At | Signature | + +-------+ + + + | Alcohol, | 10 | <=10 mg/dL | EXTERNAL | | | Ethyl (B) | | | LAB | | + +-------+ + + + + + | Specimen | + + | | + + + +---------+ + + | Performing | Address | City/State/Zipcode | Phone Number | | Organization | | | | + +---------+ + + | EXTERNAL LAB | | | | + +---------+ + + POC Glucose, [facility] (10/22/2016 11:52 AM PDT) + +-------+ + + + | Component | Value | Ref Range | Performed | Pathologist | | | | | At | Signature | + +-------+ + + + | Glucose, | 131 | 70 - 110 mg/dL | EXTERNAL [...] | | + +---------+ + + CT Head wo Contrast (10/22/2016 11:39 AM PDT) + + | Specimen | + + | | + + + + + | Narrative | Performed At | + + + | EXAMINATION: CT HEAD W/O CONTRAST HISTORY: Altered mental | | | status COMPARISON STUDY: MRI brain 04/10/2015. CT brain | | | 04/10/2015. TECHNIQUE: 5 mm axial slices were acquired through | | | the brain without contrast. Automated dose reduction is utilized | | | DOSE REPORT: DLP CTDIvol: 60.2 mGy. DLP: 963 mGy-cm. mGy-cm | | | FINDINGS: No intracranial hemorrhage, midline shift, mass effect, or | | | extra-axial fluid collection is seen. Mild prominence of the sulci | | | is present. Atherosclerosis of the cavernous internal carotid | | | arteries and visualized vertebral arteries is noted. Mucosal | | | thickening is present at the base of the maxillary sinus bilaterally. | | | IMPRESSION: 1. No acute finding. 2. Mild central volume loss. | | | 3. Mild paranasal sinus disease. JOB #: [id number] Digitally | | | Released by: Drew Lawrence Read By: DREW LAWRENCE MD | | | Date: 10/22/2016 13:31 | | + + + + + | Procedure Note | + + | Osito, Rad Results In - 04/17/2017 1:09 PM PST EXAMINATION: | | CT HEAD W/O CONTRAST | | | | HISTORY: | | Altered mental status | | | | COMPARISON STUDY: | | MRI brain 04/10/2015. CT brain 04/10/2015. | | | | TECHNIQUE: | | 5 mm axial slices were acquired through the brain without contrast. Automated | | dose reduction is utilized | | | | DOSE REPORT: | | DLP CTDIvol: 60.2 mGy. DLP: 963 mGy-cm. mGy-cm | | | | FINDINGS: | | No intracranial hemorrhage, midline shift, mass effect, or extra-axial fluid | | collection is seen. Mild prominence of the sulci is present. Atherosclerosis | | of the cavernous internal carotid arteries and visualized vertebral arteries | | is noted. Mucosal thickening is present at the base of the maxillary sinus | | bilaterally. | | | | IMPRESSION: | | 1. No acute finding. | | 2. Mild central volume loss. | | 3. Mild paranasal sinus disease. | | | | | | JOB #: [id number] | | Digitally Released by: Drew Lawrence | | | | | | Read By: DREW LAWRENCE MD | | Date: 10/22/2016 13:31 | | | + + XR Chest PA or AP (10/22/2016 11:39 AM PDT) + + | Specimen | + + | | + + + + + | Narrative | Performed At | + + + | EXAMINATION: CHEST 1 VIEW HISTORY: Altered mental status | | | COMPARISON STUDY: CT thorax 04/10/2015 FINDINGS: No lobar | | | consolidation, effusion, or nodule is seen. Heart size is mildly | | | prominent. No acute bone finding is identified. Monitor wires | | | project over the thorax. . IMPRESSION: 1. No acute finding. | | | 2. Cardiomegaly. JOB #: [id number] Digitally Released by: Howard | | | Drew Read By: DREW LAWRENCE MD Date: 10/22/2016 13:05 | | | | | + + + + + | Procedure Note | + + | Osito, Rad Results In - 04/17/2017 1:09 PM PST EXAMINATION: | | CHEST 1 VIEW | | | | HISTORY: | | Altered mental status | | | | COMPARISON STUDY: | | CT thorax 04/10/2015 | | | | FINDINGS: | | No lobar consolidation, effusion, or nodule is seen. Heart size is mildly | | prominent. No acute bone finding is identified. Monitor wires project over | | the thorax. . | | | | IMPRESSION: | | 1. No acute finding. | | 2. Cardiomegaly. | | | | | | JOB #: [id number] | | Digitally Released by: Drew Lawrence | | | | | | Read By: DREW LAWRENCE MD | | Date: 10/22/2016 13:05 | | | + + documented in this encounter Visit Diagnoses Not on filedocumented in this encounter"
--- OUTSIDE RECORDS SUMMARY | ~2019-02-17 | XMS | Encounter Summary ---
Demographics + + + | Address | [address] | | | [place] [address] | + + + | Home Phone | | + + + | Preferred Language | Unknown | + + + | Marital Status | | + + + | Orthodoxy Affiliation | 1025 | + + + | Race | Unknown | + + + | Ethnic Group | Unknown | + + + Author + + + | Author | [facility] | | | and [place] | + + + | Organization | [facility] | | | and [...] Team Providers + +------+ + | Care Mason Apprentice Name | Role | Phone | + [...] Description | +--------+--------+ + + + | 07/28/ | Refill | [facility] | Horacio Silvestre, | Medication Refill | | 2017 | | [facility] | [address] | | | | | [facility] [address] | [facility], [place] | | | | | [address] [place], | [address] | | | | | [place] [address] | [phone] | | | | | [phone] | | | +--------+--------+ + + + [...] [place] | | | | | | [address] | | | | | | [phone] | | | | | | | | +--------+---------+ + + + | 02/26/ | Office | Urology | Lillie Fowler | | | 2018 | Visit | | [address] | | | | | [address] | | | | | | [place] | | | | | | [address] | | | | | | [phone] | | | | | | | | +--------+---------+ + + + | 03/16/ | Office | Neurology | Theresa, | | | 2018 | Visit | | [address] | | | | | [address] [place], | | | | | | [place] [address] | | | | | | [phone] | | | | | | | | +--------+---------+ + + + | 04/12/ | Office | Primary Care | Massimo Ramos | | | 2019 | Visit | | MD Fer [address] | | | | | | [place] | | | | | | [address] | | | | | | | | +--------+---------+ + + + | 10/03/ | Office | Neurology | Fabián Carias MD | | | 2019 | Visit | | [address] | | | | | | [place], [place] | | | | | | [address] | | | | | | | [...] | | | care | | | Dough Mixer Operator-C | | | | | | [...] | | | care | | | Dough Mixer Operator-C | | | | | | [...] | | | care | | | Dough Mixer Operator-C | | | | | | [...] | | | care | | | Dough Mixer Operator-C | | | | | | | linical | + +--------+ +---+-----+ + + + | Note: Pt will | | check CBG's daily x1 | | Pt will take Lantis as | | prescribed | + + documented as of this encounter Visit Diagnoses Not on filedocumented in this encounter"
--- OUTSIDE RECORDS SUMMARY | ~2019-02-17 | XMS | Encounter Summary ---
Demographics + + + | Address | [address] | | | [place] [address] | + + + | Home Phone | | + + + | Preferred Language | Unknown | + + + | Marital Status | | + + + | Adventism Affiliation | [id number] | + + + [...] Team Providers + +------+ + | Care Field Support Specialist Name | Role | Phone | + +------+ + | Horacio Silvestre DO | PCP | | + +------+ + Reason for Visit + + + | Reason | Comments | + + + | Follow-up | FU medication | + + + Evaluate & Treat [...] Services | | Fissure in | Faraz J, DNP | Podiatry [address] | | | Required | | skin of foot | [address] | | | | | Fungal | [address] [place] | [place] | | | | | infection of | [place] | | | | | toenail | [address] | [address] | | | | | Procedures | Phone: | Phone: | | | | | FOOT ISSUES | [phone] | [phone] | | | | | | Fax: | Fax: | | | | | | [phone] | [phone] | +--------+ + + + + + Encounter Details +--------+---------+ + + + | Date | Type | Department | Care Team | Description | +--------+---------+ + + + | 03/23/ | Office | [facility] | Nessa Mathur DPM | Fissure in skin of | | 2018 | Visit | HOSPITAL P[facility] | [address] | foot (Primary Dx); | | | | [address] | [place], [place] | Hyperkeratosis of | | | | [place], [place] | [address] | sole | | | | [address] | | | | | | [phone] | | | +--------+---------+ + + + [...] + | Blood Pressure | 138/72 | 03/23/2018 10:06 AM | | | | | PST | | + + + + + | Pulse | 71 | 03/23/2018 10:06 AM | | | | | PST | | + + + + + | Temperature | - | - | | + + + + + | Respiratory Rate | 18 | 03/23/2018 10:06 AM | | | | | PST | | + + + + + | Oxygen Saturation | 93% | 03/23/2018 10:06 AM | | | | | PST | | + + + + + | Inhaled Oxygen | - | - | | | Concentration | | | | + + + + + | Weight | 96.2 kg (212 lb) | 03/23/2018 10:06 AM | | | | | PST | | + + + + + | Height | 167.6 cm (5' 6") | 03/23/2018 10:06 AM | | | | | PST | | + + + + + | Body Mass Index | 34.22 | 03/23/2018 10:06 AM | | | | | PST [...] + documented as of this encounter Progress Nessa Ledesma DPM - 03/23/2018 10:30 AM PST [facility] Note Patient Name: Geraldo Mcfadden | Age: 77 y.o. | : 1940 | Medical Record Number:[id number] | Author: Nessa Mathur DPM | Date of Encounter: 02/19/2018 Chief complaint Chief Complaint Patient presents with Follow-up FU medication History of Present Illness Geraldo Mcfadden is a 77 y.o. diabetic male that presents today with his For follow- up of deep heel cracks. Patient was unable to obtain the urea cream and tell just yesterday and so patient has not used it. Patient's states that he has not been compliant and h as not done anything that I spoke to him about the last visit. Patient and patient's drea smith he was recently hospitalized for pneumonia. Medications Current Outpatient Prescriptions on File Prior to Visit Medication Sig Dispense Refill albuterol 90 mcg/puff inhaler Inhale 2 puffs into the lungs every 4 hours as needed for Wheezing. Or coughing 1 Inhaler 1 aspirin 325 mg tablet Take 325 mg by mouth every morning. atorvaSTATin (LIPITOR) 10 mg tablet Take 10 mg by mouth every morning. cyanocobalamin (VITAMIN B-12) 1000 MCG tablet Take 1 tablet by mouth every morning. 90 tablet 3 DULoxetine (CYMBALTA) [address] capsule Take 60 mg by mouth every morning. fluticasone (FLONASE) 50 mcg/nasal spray 2 sprays by Nasal route nightly as needed for Allergies. 16 g 1 hydroCHLOROthiazide 25 mg tablet Take 12.5 mg by mouth every morning. insulin aspart (NOVOLOG) 100 units/mL injection Inject 10 Units under the skin every mo rning (before breakfast). Checks BG 30 minutes after eating + Additional 15 units for BG >250 insulin glargine (LANTUS) 100 units/mL injection (vial) Inject 35 Units under the skin nightly. 3 vial 5 [] levoFLOXacin (LEVAQUIN) 500 mg tablet Take 1 tablet by mouth Daily for 5 days . 5 tablet 0 levothyroxine (SYNTHROID) 100 mcg tablet Take 2 tablets by mouth every morning (before breakfast). 90 tablet 0 levothyroxine (SYNTHROID) 200 mcg tablet Take 1 tablet by mouth every morning (before b reakfast). 10 tablet 1 losartan (COZAAR) 50 mg tablet Take 50 mg by mouth every morning. naproxen (NAPROSYN) 500 mg tablet Take 500 mg by mouth 2 times daily (with breakfast & dinner). omeprazole (PRILOSEC) 20 mg capsule Take 1 capsule by mouth every morning (before break fast). 90 capsule 1 oxyCODONE 10 MG TABS Take 1 tablet by mouth 3 times daily as needed for Pain. 84 tablet 0 pregabalin (LYRICA) 300 MG capsule Take 1 capsule by mouth 2 times daily. 180 capsule 1 tamsulosin (FLOMAX) 0.4 mg CAPS Take 1 capsule by mouth nightly. 90 capsule 3 testosterone (ANDRODERM) 2 mg/[address] 1 patch onto the skin nightly. 60 patch 1 tiotropium (SPIRIVA RESPIMAT) 2.5 mcg/puff inhaler Inhale 2 puffs into the lungs Daily. traZODone (DESYREL) 50 mg tablet Take 2 tablets by mouth nightly. 90 tablet 3 urea (CARMOL) 40 % CREA Apply to affected areas daily 120 g 5 No current facility-administered medications on file prior to visit. Allergies Zolpidem Vitals BP 138/72 | Pulse 71 | Resp 18 Temp | Wt 96.2 kg (212 lb) | BMI Body mass index is 34.22 kg/m. ROS Patient denies any visit problem associated neurologic and vascular system symptoms of numb ness, tingling or weakness during this history today. Imaging/Labs/Special Study Results Visit problem associated images and findings reviewed by me today with the patient include: No results found. Physical Exam GENERAL: Pt is a well-dressed male in NAD and A&Ox3. VASCULAR:Dorsalis pedis pulses are 1/4 left and 1/4 right while posterior tibial pulses are graded at 0/4 left and 0/4 right. Digital hair growth is Absent to the level of the distal one third of bilateral legs. Temperature gradient was warm to cool measured from proximal leg to distal foot. Noninflamed varicosities present to bilateral feet and ankles. NEUROLOGICAL EXAM: Deep tendon reflexes including Achilles and Patellar are normal, brisk, and symmetrical bilaterally. Epicritic sensation including sharp-dull, light touch, vibratio n (128 MHz tuning fork) and protective threshold (10.0 gram monofilament) are diminished to the level of the forefoot bilateral. MSK: 5/5 muscle strength for all prime movers of KATELYN LE. Normal muscle mass appreciated to KATELYN LE. Negative amputations bilateral. DERM: Nail plates 1 through 5 are uniformly yellowed with brown discoloration and markedly thickened with malodorous loose subungual debris bilateral. Negative onychocryptosis. Hype rkeratosis present to bilateral heel rim with fissures noted posterior and plantarly without signs of infection. Hyperkeratosis are also present to sub-met one bilateral. Xerosis pre sent bilateral. Assessment ICD-10-CM ICD-9-CM 1. Fissure in skin of foot R23.4 709.8 2. Hyperkeratosis of sole L85.9 701.1 Treatment and Plan of Care Patient seen and evaluated Discussed hyperkeratoses and fissures and skin due to xerosis and hyperkeratoses. Recommen d the patient use a pumice stone regularly and showed the patient and the patient's a p icture and told them that they could purchase one at right [employer] or [employer]. After that patie nt can take Vaseline petroleum jelly and apply to his heels and apply a plastic Leblanc bag over that and his socks and sleep through the night with that. Patient is only to apply th e plastic bag to his heels and no other part of his foot. Written instructions were given t o the patient. Educated patient on signs of infection secondary to fissures Begin Urea 40% cream to be used daily 4 weeks for follow-up and for nail debridement Active Problems, Medical and Surgical Histories Patient Active Problem List Diagnosis Multilevel degenerative disc disease Bilateral carpal tunnel syndrome History of stroke without residual deficits Gastroesophageal reflux disease without esophagitis Essential hypertension Acquired hypothyroidism Pure hypercholesterolemia Hypogonadotropic hypogonadism Type 2 diabetes mellitus with diabetic polyneuropathy, 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 Class 1 obesity with alveolar hypoventilation, serious comorbidity, and body mass index (BMI) of 34.0 to 34.9 in adult Benign prostatic hyperplasia without lower urinary tract symptoms Acquired diverticulosis of colon Chronic nonseasonal allergic rhinitis due to pollen terminal gauger current use of aspirin 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, left skilled nursing current use of opiate analgesic Current use of beta marly Panlobular emphysema Atherosclerosis of [place] coronary artery of [place] heart without angina pectoris On potassium wasting diuretic therapy Community acquired pneumonia, unspecified laterality Primary osteoarthritis involving multiple joints Vitamin D deficiency disease Chronic bilateral low back pain without sciatica Generalized weakness Chronic bilateral low back pain without sciatica Hypoxia Pneumonia Neutrophilic leukocytosis Past Medical History: Diagnosis Date Carpal tunnel [...] CATARACT REMOVAL; Surgeon: Tay Kern MD; Location: [facility] Left L ear melanoma Ventral incisional hernia repair Family History Problem Relation Age of Onset Diabetes Mother Heart disease Father Arthritis Maternal Grandfather Heart disease Maternal Grandfather Other (see comment) Paternal Grandmother Dementia Social History Social History Marital status: Spouse name: N/A Number of children: N/A Years of education: N/A Social History Main Topics Smoking status: Former Smoker Packs/day: 3.00 Quit date: 1974 Smokeless tobacco: Never Used Alcohol use No Drug use: No Sexual activity: Not Asked Other Topics Concern None Social History Narrative None I attest to the fact that I have reviewed the patient's medical, surgical, family and socia l histories, medications, allergies, and their vital signs recorded by my public health training assistant today, a s found in this chart note. Electronically signed by: Nessa Mathur DPM 02/19/2018 at 13:42 Note: Part of this report was transcribed using voice recognition software. Every effort wa s made to ensure accuracy. However, inadvertent computerized lpta errors may be pre sent. CC: DO Rd LucianoThank you for choosing our clinic for your podiatric care today- documented in this encounter Plan of Treatment [...] [place] | | | | | | [address] | | | | | | [phone] | | | | | | | | +--------+---------+ + + + | 02/26/ | Office | Urology | Lillie Fowler | | | 2018 | Visit | | LILLIE Lopez [address] | | | | | | [address] | | | | | | [place], [place] | | | | | | [address] | | | | | | [phone] | | | | | | | | +--------+---------+ + + + | 03/16/ | Office | Neurology | Theresa, | | | 2018 | Visit | | SHONDA Mckinney [address] | | | | | [address] [place], | | | | | | [place] [address] | | | | | | [phone] | | | | | | | | +--------+---------+ + + + | 04/12/ | Office | Primary Care | Massimo Ramoslulu | | | 2019 | Visit | | MD Fer [address] | | | | | | [place] | | | | | | [address] | | | | | | | | +--------+---------+ + + + | 10/03/ | Office | Neurology | Fabián Carias MD | | | 2019 | Visit | | [address] | | | | | | [place] | | | | | | [address] | | | | | | | [...] | | | care | | | Community Placement Worker-C | | | | | | [...] | | | care | | | Community Placement Worker-C | | | | | | [...] | | | care | | | Community Placement Worker-C | | | | | | [...] | | | care | | | Community Placement Worker-C | | | | | | | linical | + +--------+ +---+-----+ + + + | Note: Pt will | | check CBG's daily x1 | | Pt will take Lantis as | | prescribed | + + documented as of this encounter Visit Diagnoses + + | Diagnosis | + + | Fissure in skin of foot - Primary Other specified disorder of skin | + + | Hyperkeratosis of sole Acquired keratoderma | + + documented in this encounter
--- OUTSIDE RECORDS SUMMARY | ~2019-02-17 | XMS | Encounter Summary ---
Demographics + + + | Address | [address] | | | [place] [address] | + + + | Home Phone [...] + | Author | [facility] | | | and [place] | + + + | Organization | [facility] | | | and [...] Team Providers + +------+ + | Care Ceramist Name | Role | Phone | + +------+ + | Massimo Ramos MD | PCP | | + +------+ + Reason for Referral Evaluate & Treat (Routine) + + + + + + + | Status | Reason | Specialty | Diagnoses / | Referred By | Referred To | | | | | Procedures | Contact | Contact | + + + + + + + | Pending | Specialty | Optometry | Diagnoses | Richard | Scott, | | Review | Services | | Type 2 | Massimo Cloud | RIGO Cohen | | | Required | | diabetes | MD Fer | [address] | | | | | mellitus | [address] | [address] | | | | | with other | [address] | [place] | | | | | specified | [place] | [address] | | | | | complication | [address] | Phone: | | | | | , without | Phone: | [phone] | | | | | long-term | [phone] | | | | | | current use | Fax: | | | | | | of insulin | [phone] | | | | | | ([facility]) | | | + + + + + + + Evaluate & Treat (Routine) + + + + + + + | Status | Reason | Specialty | Diagnoses / | Referred By | Referred To | | | | | Procedures | Contact | Contact | + + + + + + + | Pending | Specialty | Dermatology | Diagnoses | Richard | [facility] | | Review | Services | | History of | Massimo Cloud | Dermatology | | | Required | | melanoma | MD Fer | Clinic [address] | | | | | | [address] | [address] | | | | | | [address] | [place] | | | | | | [place], [place] | [place] | | | | | | [address] | [address] | | | | | | Phone: | Phone: | | | | | | [phone] | [phone] | | | | | | Fax: | Fax: | | | | | | [phone] | [phone] | + + + + + + + Reason for Visit + + + | Reason | Comments | + + + | Follow-up | ED for hyperglycemia; Pre-op for colonoscopy | + + + Encounter Details +--------+---------+ + + + | Date | Type | Department | Care Team | Description | +--------+---------+ + + + | 01/07/ | Office | [facility] | Massimo Ramos | Type 2 diabetes | | 2019 | Visit | [facility] | MD Fer [address] | mellitus with other | | | | [facility] [address] | [address] [place], [place] | specified | | | | [address] [place], | [address] | complication, | | | | [place] [address] | | without long-term | | | | [phone] | | current use of | | [...] | | | ear, left (HCC) | +--------+---------+ + + + Social History [...] + + + | Blood Pressure | 122/72 | 01/07/2019 10:55 AM | | | | | PDT | | + + + + + | Pulse | 96 | 01/07/2019 10:55 AM | | | | | PDT | | + + + + + | Temperature | 36.9 C (98.4 F) | 01/07/2019 10:55 AM | | | | | PDT | | + + + + + | Respiratory Rate | 18 | 01/07/2019 10:55 AM | | | | | PDT | | + + + + + | Oxygen Saturation | 95% | 01/07/2019 10:55 AM | | | | | PDT | | + + + + + | Inhaled Oxygen | - | - | | | Concentration | | | | + + + + + | Weight | 88.5 kg (195 lb) | 01/07/2019 10:55 AM | | | | | PDT | | + + + + + | Height | 167.6 cm (5' 6") | 01/07/2019 10:55 AM | | | | | PDT | | + + + + + | Body Mass Index | 31.47 | 01/07/2019 10:55 AM | | | | | PDT [...] documented as of this encounter Progress Notes Massimo Ramos MD - 01/07/2019 10:00 AM PDTFormatting of this note might be differen t from the original. Patient ID: Geraldo Mcfadden is a 78 y.o. year old male Chief Complaint Patient presents with Follow-up ED for hyperglycemia; Pre-op for colonoscopy Assessment and Plan: DM - Clinically improved after admit Check labs today Refer to eye clinic CAD - stable, on ASA 325 mg Can consider change to 81 mg HLD - increase atorvastatin to 20 mg qday Hx of melanoma - refer to Derm R scientology lesion, doubt TA, check ESR Low TSH - repeat today, then lower synthroid Dose if still suppressed Dementia - stable COPD - stable F/U in 3 mo Subjective: HPI Pt is here for discharge follow up, here with , states feeling ok now, glucose readings in 200's, no longer has urinary incontinence, thirst, weakness. States he is not scheduled for colonoscopy Not fasting today He c/o painful lesion R scientology, occurs with rubbing, x 6 mo; neg pain today Review of Systems Having memory problems Denies cp, sob, n/v/d, fever, chills, sweating, depression, anxiety, bleeding, dizziness, s yncope, palpitations, edema + easy bruising Thinks he's off the plavix but did not bring bottles, had planned to bring them Hx of melanoma Has had "singleton" lesion, R scientology x 7 mo Lives with grandson, has husky Objective: Vitals: BP 122/72 | Pulse 96 | Temp 36.9 C (98.4 F) (Oral) | Resp 18 | Ht 1.676 m (5' 6") | Wt 88.5 kg (195 lb) | SpO2 95% | BMI 31.47 kg/m Physical Exam Gen - NAD, alert, oriented Psych - nl affect, mood, speech Poor recent memory Skin - Wm, dry; + hyperpigmented macule, R scientology, neg tenderness HEENT - AYLIN, EOMI, sclera anicteric, oropharynx non erythematous Neck - Supple, neg JVD Cor - RRR, nl S1 and S2, neg m Lung - Clear Abd - Soft, obese, non tender, non distended Neg cva tenderness M/S - Neg R scientology scalp tenderness Neg spinal tenderness Ext - Neg edema Neuro - CN intact Non focal documented in this encounter Plan of Treatment +--------+---------+ + + + | Date | Type | Specialty | Care Team | Description | +--------+---------+ + + + | 02/25/ | Office | General Surgery | Yennifer Scott | | | 2018 | Visit | | DO Jalen [address] | | | | | | [address] | | | | | | [place], [place] | | | | | | [address] | | | | | | [phone] | | | | | | | | +--------+---------+ + + + | 02/26/ | Office | Urology | Lillie Fowler | | | 2018 | Visit | | LILLIE Lopez [address] | | | | | | [address] | | | | | | [place], [place] | | | | | | [address] | | | | | | [phone] | | | | | | | | +--------+---------+ + + + | 03/16/ | Office | Neurology | Theresa, | | | 2018 | Visit | | SHONDA Mckinney [address] | | | | [address] [place], | | | | | | [place] [address] | | | | | | [phone] | | | | | | | | +--------+---------+ + + + | 04/12/ | Office | Primary Care | Massimo Ramos | | | 2019 | Visit | | MD Fer [address] | | | | | | [place] | | | | | | [address] | | | | | | | | +--------+---------+ + + + | 10/03/ | Office | Neurology | Fabián Carias MD | | | 2019 | Visit | | [address] | | | | | | [place] | | | | | | [address] | | | | | | | | +--------+---------+ + + + + +------+--------+ + + | Name | Type | Priori | Associated Diagnoses | Order Schedule | | | | ty | | | + +------+--------+ + + | CBC with | Lab | Routin | Acute | 1 Occurrences | | Differential | | e | nonintractable | starting 01/07/2019 | | | | | headache, | until 01/08/2020 | | | | | unspecified headache | | | | | | type | | + +------+--------+ + + | Basic Metabolic | Lab | Routin | Acute | 1 Occurrences | | Panel | | e | nonintractable | starting 01/07/2019 | | | | | headache, | until 01/08/2020 | | | | | unspecified headache | | | | | | type | | + +------+--------+ + + | Sedimentation Rate | Lab | Routin | Acute | 1 Occurrences | | | | e | nonintractable | starting 01/07/2019 | | | | | headache, | until 01/08/2020 | | | | | unspecified headache | | | | | | type | | + +------+--------+ + + | TSH, Reflex Free T4 | Lab | Routin | Hyperthyroidism | 1 Occurrences | | | | e | | starting 01/07/2019 | | | | | | until 04/09/2019 | + +------+--------+ + + + + +--------+ + + | Name | Type | Priori | Associated Diagnoses | Order Schedule | | | | ty | | | + + +--------+ + + | * [place] [facility] | Outpatient | Routin | History of | Ordered: 01/07/2019 | | [facility] - | Referral | e | melanoma | | | AMB Referral | | | | | + + +--------+ + + | Optometry, External | Outpatient | Routin | Type 2 diabetes | Ordered: 01/07/2019 | | - AMB Referral | Referral | e | mellitus with other | | | | | | specified | | | | | | complication, | | | | | | without long-term | | | | | | current use of | | | | | | insulin (HCC) | | + + +--------+ + + [...] | | | care | | | Employee Benefits Specialist-C | | | | | | [...] | | | care | | | Employee Benefits Specialist-C | | | | | | [...] | | | care | | | Employee Benefits Specialist-C | | | | | | [...] | | | care | | | Employee Benefits Specialist-C | | | | | | | linical | + +--------+ +---+-----+ + + + | Note: Pt will | | check CBG's daily x1 | | Pt will take Lantis as | | prescribed | + + documented as of this encounter Visit Diagnoses + + | Diagnosis | + + | Type 2 diabetes mellitus with other specified complication, without long-term current | | use of insulin (HCC) - Primary | + + | Acute nonintractable headache, unspecified headache type | + + | History of melanoma Personal history of malignant melanoma of skin | + + | Immunization due Need for prophylactic vaccination and inoculation against | | unspecified single disease | + + | Hyperthyroidism Thyrotoxicosis without mention of goiter or other cause, without | | mention of thyrotoxic crisis or storm | + + | Benign prostatic hyperplasia with incomplete bladder emptying | + + | History of arterial ischemic stroke Transient ischemic attack (TIA), and cerebral | | infarction without residual deficits | + + | Acquired hypothyroidism Unspecified hypothyroidism | + + | 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) | + + | 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, left (HCC) | + + documented in this encounter Additional Health Concerns + + + + | Infection | Noted Time | Resolved Time | + + + + | Methicillin-resistant Staphylococcus aureus | 07/20/2018 4:00 PM | | | | PDT | | + + + + documented as of this encounter
--- OUTSIDE RECORDS SUMMARY | ~2019-02-17 | XMS | Encounter Summary ---
Demographics + + + | Address | [address] | | | [place] [address] | + + + | Home Phone | | + + + | Preferred Language | Unknown | + + + | Marital Status | | + + + | Jainism Affiliation | 1025 | + + + | Race | Unknown | + + + | Ethnic Group | Unknown | + + + Author + + + | Author | [facility] | | | and [place] | + + + | Organization | [facility] | | | [...] Team Providers + +------+ + | Care Design Painter Name | Role | Phone | + +------+ + PCP | Unavailable | + +------+ + Encounter Details +--------+ + + + + | Date | Type | Department | Care Team | Description | +--------+ + + + + | 02/23/ | Hospital | [facility] | Esthela Garza | | | 2008 | Encounter | HOSPITAL MED SURG | [address] | | | | | [address] | [place], | | | | | [place] | [place] [address] | | | | | [address] | [phone] | | | | | [phone] | | | +--------+ + + + [...] [place] | | | | | | [address] | | | | | | [phone] | | | | | | | | +--------+---------+ + + + | 02/26/ | Office | Urology | Lillie Fowler | | | 2018 | Visit | | LILLIE Lopez [address] | | | | | | [address] | | | | | | [place], [place] | | | | | | [address] | | | | | | [phone] | | | | | | | | +--------+---------+ + + + | 03/16/ | Office | Neurology | Theresa, | | | 2018 | Visit | | SHONDA Mckinney [address] | | | [address] [place], | | | | | | [place] [address] | | | | | | [phone] | | | | | | | | +--------+---------+ + + + | 04/12/ | Office | Primary Care | Massimo Ramos | | | 2019 | Visit | | MD Fer [address] | | | | | | [place] | | | | | | [address] | | | | | | | | +--------+---------+ + + + | 10/03/ | Office | Neurology | Fabián Carias MD | | | 2019 | Visit | | [address] | | | | | | [place] | | | | | | [address] | | | | | | | [...] | | | care | | | Wrister-C | | | | | | | [...] | | | care | | | Wrister-C | | | | | | | [...] | | | care | | | Wrister-C | | | | | | | [...] | | | care | | | Wrister-C | | | | | | | linical | + +--------+ +---+-----+ + + + | Note: Pt will | | check CBG's daily x1 | | Pt will take Lantis as | | prescribed | + + documented as of this encounter Visit Diagnoses Not on filedocumented in this encounter"
--- OUTSIDE RECORDS SUMMARY | ~2019-02-17 | XMS | Encounter Summary ---
Demographics + + + | Address | [address] | | | [place] [address] | + + + | Home Phone | | + + + | Preferred Language | Unknown | + + + | Marital Status | | + + + | Sikhism Affiliation | 1025 | + + + | Race | Unknown | + + + | Ethnic Group | Unknown | + + + Author + + + | Author | [facility] | | | and [place] | + + + | Organization | [facility] | | [...] Providers + +------+ + | [employer] Name | Role | Phone | + [...] Description | +--------+--------+ + + + | 10/06/ | Refill | [facility] [facility] | Horacio Silvestre, | Medication Refill | | 2017 | | [facility] | DO [address] | | | | | [facility] [address] | [facility], [place] | | | | | [address] [place], | [address] | | | | | [place] [address] | [phone] | | | | | [phone] | | | +--------+--------+ + + + [...] [place] | | | | | | [address] | | | | | | [phone] | | | | | | | | +--------+---------+ + + + | 02/26/ | Office | Urology | Lillie Fowler | | | 2018 | Visit | | LILLIE Lopez [address] | | | | | | [address] | | | | | | [place], [place] | | | | | | [address] | | | | | | [phone] | | | | | | | | +--------+---------+ + + + | 03/16/ | Office | Neurology | Theresa, | | | 2018 | Visit | | SH[address]DA [address] | | | | | | [address] [place], | | | | | | [place] [address] | | | | | | [phone] | | | | | | | | +--------+---------+ + + + | 04/12/ | Office | Primary Care | Massimo Ramos | | | 2019 | Visit | | MD Fer [address] | | | | | | [address] [place] | | | | | | [address] | | | | | | | | +--------+---------+ + + + | 10/03/ | Office | Neurology | Fabián Carias MD | | | 2019 | Visit | | [address] | | | | | | [place] | | | | | | [address] | | | | | | | [...] | | | care | | | [employer] | | | | | | | [...] | | | care | | | [employer] | | | | | | | [...] | | | care | | | [employer] | | | | | | | [...] | | | care | | | [employer] | | | | | | | linical | + +--------+ +---+-----+ + + + | Note: Pt will | | check CBG's daily x1 | | Pt will take Lantis as | | prescribed | + + documented as of this encounter Visit Diagnoses Not on filedocumented in this encounter"
--- OUTSIDE RECORDS SUMMARY | ~2019-02-17 | XMS | Encounter Summary ---
Demographics + + + | Address | [address] | | | [place] [address] | + + + | Home Phone | | + + + | Preferred Language | Unknown | + + + | Marital Status | | + + + | Catholic Affiliation | 1025 | + + + [...] Team Providers + +------+ + | Care Chassis Driver Name | Role | Phone | + +------+ + | Horacio Silvestre DO | PCP | | + +------+ + Reason for Visit + + + | Reason | Comments | + + + | Pre-op Exam | | + + + Encounter Details +--------+ + + + + | Date | Type | Department | Care Team | Description | +--------+ + + + + | 04/25/ | Telephone | [place] [facility] | Horacio Silvestre, | Pre-op Exam | | 2018 | | [facility] | [address] | | | | | [facility] | [facility], [place] | | | | | [address] [place], | [address] | | | | | [place] [address] | [phone] | | | | | [phone] | | | +--------+ + + + [...] DR | | | | | | [place] | | | | | | [address] | | | | | | [phone] | | | | | | | | +--------+---------+ + + + | 02/26/ | Office | Urology | Malcolm Lillie | | | 2018 | Visit | | [address] | | | | | | [address] | | | | | | [place], [place] | | | | | | [address] | | | | | | [phone] | | | | | | | | +--------+---------+ + + + | 03/16/ | Office | Neurology | Theresa, | | | 2018 | Visit | | [address] | | | | | | [address] [place], | | | | | | [place] [address] | | | | | | [phone] | | | | | | | | +--------+---------+ + + + | 04/12/ | Office | Primary Care | Massimo Ramos | | | 2019 | Visit | | MD [facility] [address] | | | | | | [place] | | | | | | [address] | | | | | | | | +--------+---------+ + + + | 10/03/ | Office | Neurology | Fabián Carias MD | | | 2019 | Visit | | [address] | | | | | | [place] | | | | | | [address] | | | | | | | [...] | | | care | | | [employer] | | | | | | | [...] | | | care | | | [employer] | | | | | | | [...] | | | care | | | [employer] | | | | | | | [...] | | | care | | | [employer] | | | | | | | linical | + +--------+ +---+-----+ + + + | Note: Pt will | | check CBG's daily x1 | | Pt will take Lantis as | | prescribed | + + documented as of this encounter Visit Diagnoses Not on filedocumented in this encounter"
--- OUTSIDE RECORDS SUMMARY | ~2019-02-17 | XMS | Encounter Summary ---
Demographics + + + | Address | [address] | | | [place] [address] | + + + | Home Phone | | + + + | Preferred Language | Unknown | + + + | Marital Status | | + + + | Bahai Affiliation | 1025 | + + + | Race | Unknown | + + + | Ethnic Group | Unknown | + + + Author + + + | Author | [facility] | | | and [place] | + + + | Organization | [facility] | | | [...] Team Providers + +------+ + | Care Vice Chairman Name | Role | Phone | + +------+ + | Horacio Silvestre DO | PCP | | + +------+ + Encounter Details +--------+ + + + + | Date | Type | Department | Care Team | Description | +--------+ + + + + | 07/24/ | Emergency | [facility] | Macario Sibley | Acute respiratory | | 2019 | | [facility] | [address] | failure with hypoxia | | | | [address] | [address] | ([facility]) (Primary Dx); | | | | [address] [place], [place] | [place] [address] | Sepsis, due to | | | | [address] | [phone] | unspecified organism | | | | [phone] | | ([facility]); Pneumonia of | | | | | | right lung due to | | | | | | infectious organism, | | | | | | unspecified part of | | | | | | lung; Acute renal | | | | | | failure with other | | | | | | specified | | | | | | pathological lesion | | | | | | in kidney ([facility]); | | | | | | Hypomagnesemia | +--------+ + + + + Social [...] + + + | Blood Pressure | 85/43 | 07/24/2018 12:31 PM | | | | | PDT | | + + + + + | Pulse | 84 | 07/24/2018 7:54 PM | | | | | PDT | | + + + + + | Temperature | 37.5 C (99.5 F) | 07/24/2018 10:40 AM | | | | | PDT | | + + + + + | Respiratory Rate | 20 | 07/24/2018 7:54 PM | | | | | PDT | | + + + + + | Oxygen Saturation | 93% | 07/24/2018 7:54 PM | | | | | PDT | | + + + + + | Inhaled Oxygen | - | - | | | Concentration | | | | + + + + + | Weight | 91 kg (200 lb 9.9 | 07/24/2018 10:40 AM | | | | oz) | PDT | | + + + + + | Height | 170.2 cm (5' 7") | 07/24/2018 10:40 AM | | | | | PDT | | + + + + + | Body Mass Index | 31.42 | 07/24/2018 10:40 AM | | | | | PDT [...] +---------+ + + | amLODIPine | Take 1 tablet by | 30 | 1 | 07/29/19 | | | (NORVASC) 10 MG | mouth Daily. | tablet | | 19 | 9 | | tablet | | | | | | + + + +---------+ + + | amLODIPine | Take 1 tablet by | 30 | 1 | 07/29/19 | | | (NORVASC) 10 MG | mouth Daily. | tablet | | 19 | 9 [...] (OMNICEF) | Take 1 capsule by | 8 | 0 | 07/28/19 | | | 300 mg capsule | mouth 2 times daily | capsule | | 19 | 9 | | | for 4 days. | | | | | + + + +---------+ + + | cefdinir (OMNICEF) | Take 1 capsule by | 8 | 0 | 07/28/19 | | | 300 mg capsule | mouth 2 times daily | capsule | | 19 | 9 | | | for 4 days. | | | | | + [...] | | | | tablet | Daily. For gout | | | | 9 | + [...] hydroCHLOROthiazide | Daily. | | | | 9 | | 25 mg tablet | | | | | | + + + +---------+ + + | insulin glargine | Inject 18 Units | 3 vial | 5 | 04/22/20 | | | (LANTUS) 100 | under [...] insulin glargine | Inject 18 Units | | 0 | | | | (LANTUS) 100 | under the skin | | | | 9 | | [...] + + + +---------+ + + | LEVOTHYROXINE | Take 175-200 mcg by | | 0 | | | | SODIUM PO | mouth Daily. | | | | 9 | + [...] +---------+ + + | oxyCODONE | Take 30 mg by mouth | | 0 | | | | (ROXICODONE) 30 MG | every 8 hours as | | | | 9 | | immediate release | needed for Pain. | | | | | | tablet [...] documented as of this encounter Progress Notes Clarence Coulter, PharmD - 07/24/2018 1:16 PM PDTFormatting of this note might be dif ferent from the original. VANCOMYCIN PER PHARMACY PROTOCOL: Patient: Geraldo Mcfadden ED08/ED08 Admit: 07/24/2018 10:38 RELEVANT ALLERGIES: None 78 yrs old male patient admitted on 07/24/2018 for HAP Patient is receiving vancomycin sta rting on 07/24/2018 for HAP. Patient has a past medical history of Carpal tunnel syndrome, bilateral (05/31/2013), DDD (degenerative disc disease), cervical (05/22/2013), Diabetes melli tus ([facility]), GERD (gastroesophageal reflux disease), Gout, Hiatal hernia, Hypertension, Melano ma ([facility]), Melanoma ([facility]), 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, left ([facility]), Neck pain, chronic (05/22/2013 ), Neuropathy, Paresthesias - both hands (05/22/2013), and Thyroid disease. Antimicrobials - Discontinued Antibiotic Dates of Therapy Zosyn 3.375g Once 07/24/2018 Historical Vancomycin dosing (previous & current encounter): Vancomycin Loading dose of 100 0mg Micro/Cultures/Diagnostics: Microbiology Results (Last 14 Days by Collected Date with Culture/Sensitivity) Procedure Component Value Units Date/Time Culture, Blood [[id number]] Collected: 07/24/18 1107 Order Status: Sent Lab Status: In process Updated: 07/24/18 1111 Specimen: Peripheral Blood Culture, Blood [[id number]] Collected: 07/24/18 1050 Order Status: Sent Lab Status: In process Updated: 07/24/18 1106 Specimen: Peripheral Blood Culture, MRSA [[id number]] Collected: 07/15/18 0036 Order Status: Completed Lab Status: Final result Updated: 07/17/18 0749 Specimen: Tissue from Nares Culture 1+ Staphylococcus aureus,Methicillin resistant (MRSA) Culture, Blood [[id number]] Collected: 07/14/18 1230 Order Status: Completed Lab Status: Final result Updated: 07/19/18 1321 Specimen: Peripheral Blood Culture No growth after 5 days incubation. Culture, Blood [[id number]] Collected: 07/14/18 1218 Order Status: Completed Lab Status: Final result Updated: 07/19/18 1231 Specimen: Peripheral Blood Culture No growth after 5 days incubation. Admission Wt: Weight: 91 kg (200 lb 9.9 oz) Current Wt: Weight: 91 kg (200 lb 9.9 oz) Min/Max Temp past 24 hours:Temp Av.5 C (99.5 F) Min: 37.5 C (99.5 F) Max: 3 7.5 C (99.5 F) Estimated Creatinine Clearance: 20 mL/min (A) (based on SCr of 3.24 mg/dL (H)). Intake/Output Summary (Last 24 hours) at 07/24/2018 1316 Last data filed at 07/24/2018 1302 Gross per 24 hour Intake 2000 ml Output Net 2000 ml Temp: [37.5 C (99.5 F)] 37.5 C (99.5 F) Pulse: [110] 110 Resp: [16] 16 BP: (98)/(76) 98/76 Recent Labs Lab 07/24/18 1045 WBC 24.3* CREA 3.24* LACTATE 1.8 Date 07/24 Time of Vancomycin draw -- Vancomycin result -- LEVEL or TROUGH Serum Creatinine 3.24 CrCl (mL/min) 20 Vanco load/bolus 1000 mg Vanco dose - current -- Vanco dose - new 750 mg q24hr Assessment: Vancomycin Day # 1 Other antibiotics: None Target Trough: 15-20 mcg/ml for CAP WBC: 24.3; Renal: 3.24; Temp: 37.5 IBW (kg): 66.10 Dosing wt(kg): 91 Estimated Creatinine clearance (ml/min): 19.6 CRCL method: Cockcroft and Gault us ing adjusted body weight Drug selected: Vancomycin Loading dose (mg): 0 Vd (liters): 63.7 (factor used: 0.7 L/kg) Rubén (hr-1): 0.021 Half life (hrs): 33. 01 Plan: 1. Vancomycin load of 1000 mg (~11 mg/kg) IVPB x 1 given on 07/24/2018 @ 1227, followed by maintenance vancomycin 750 mg IVPB q24h 2. Vancomycin trough ordered for 07/28/2018 @ 1100 (draw 60 minutes prior to hanging the 5 dose) 3. Serum creatinine DAILY for first 3 days, then at least every 3 days while on vancomycin. 4. Will monitor renal function, clinical status, infection markers daily with troughs and d ose adjustment as needed. Definitions: For the purpose of this protocol, "trough" means a steady state trough before the 4th dose of the initial/new dosing regimen and "level" means all other levels drawn including before the 3rd dose References: Vancomycin dosing protocol IDSA guidelines Procalcitonin Algorithm Per P&T-approved Vancomycin Dosing and Monitoring Protocol Electronically signed by: Clarence Coulter, PharmD 07/24/2018 13:16 documented in this encounter Plan of Treatment [...] [place] | | | | | | [address] | | | | | | [phone] | | | | | | | | +--------+---------+ + + + | 02/26/ | Office | Urology | Lillie Fowler | | | 2019 | Visit | | LILLIE Lopez [address] | | | | | | [address] | | | | | | [place] | | | | | | [address] | | | | | | [phone] | | | | | | | | +--------+---------+ + + + | 03/16/ | Office | Neurology | Theresa, | | | 2018 | Visit | | SHONDA Mckinney [address] [place], | | | | | | [place] [address] | | | | | | [phone] | | | | | | | | +--------+---------+ + + + | 04/12/ | Office | Primary Care | Massimo Ramos | | | 2019 | Visit | | MD Fer [address] | | | | | | [place] | | | | | | [address] | | | | | | | | +--------+---------+ + + + | 10/03/ | Office | Neurology | Fabián Carias MD | | | 2019 | Visit | | [address] | | | | | | [place] | | | | | | [address] | | | | | | | | +--------+---------+ + + + + +------+--------+ + + | Name | Type | Priori | Associated Diagnoses | Date/Time | | | | ty | | | + +------+--------+ + + | ED INFORMATION | BRIT | Routin | | 07/24/2018 10:37 AM | | EXCHANGE | | e [...] | | care | | | Senior Project Coordinator-C | | | | | | [...] | | care | | | Senior Project Coordinator-C | | | | | | [...] | | care | | | Senior Project Coordinator-C | | | | | | [...] | | care | | | Senior Project Coordinator-C | | | | | | [...] | ECG - EXTERNAL SCAN | | 07/28/2018 | | Results for this | | | | 12:00 AM | | procedure are in the | | | | PDT | | results section. | + +--------+ + + + | URINALYSIS WITH | STAT | 07/24/2018 | | Results for this | | MICROSCOPIC WITH | | 7:15 PM | | procedure are in the | | CULTURE IF INDICATED | | PDT | | results section. | + +--------+ + + + | XR CHEST AP PORTABLE | STAT | 07/24/2018 | | Results for this | | | | 12:10 PM | | procedure are in the | | | | PDT | | results section. | + +--------+ + + + | BLOOD GAS, ARTERIAL | STAT | 07/24/2018 | | Results for this | | | | 11:46 AM | | procedure are in the | | | | PDT | | results section. | + +--------+ + + + | XR CHEST AP PORTABLE | STAT | 07/24/2018 | | Results for this | | | | 11:23 AM | | procedure are in the | | | | PDT | | results section. | + +--------+ + + + | CT HEAD WO CONTRAST | STAT | 07/24/2018 | | Results for this | | | | 11:14 AM | | procedure are in the | | | | PDT | | results section. | + +--------+ + + + | CULTURE, BLOOD | STAT | 07/24/2018 | | Results for this | | | | 11:07 AM | | procedure are in the | | | | PDT | | results section. | + +--------+ + + + | ECG 12 LEAD | STAT | 07/24/2018 | | Results for this | | | | 10:52 AM | | procedure are in the | | | | PDT | | results section. | + +--------+ + + + | CULTURE, BLOOD | STAT | 07/24/2018 | | Results for this | | | | 10:50 AM | | procedure are in the | | | | PDT | | results section. | + +--------+ + + + | TROPONIN I | STAT | 07/24/2018 | | Results for this | | | | 10:45 AM | | procedure are in the | | | | PDT | | results section. | + +--------+ + + + | DIFFERENTIAL, MANUAL | Routin | 07/24/2018 | | Results for this | | | e | 10:45 AM | | procedure are in the | | | | PDT | | results section. | + +--------+ + + + | PROTIME INR | STAT | 07/24/2018 | | Results for this | | | | 10:45 AM | | procedure are in the | | | | PDT | | results section. | + +--------+ + + + | CBC WITH | STAT | 07/24/2018 | | Results for this | | DIFFERENTIAL | | 10:45 AM | | procedure are in the | | | | PDT | | results section. | + +--------+ + + + | T4, FREE | STAT | 07/24/2018 | | Results for this | | | | 10:45 AM | | procedure are in the | | | | PDT | | results section. | + +--------+ + + + | MAGNESIUM | STAT | 07/24/2018 | | Results for this | | | | 10:45 AM | | procedure are in the | | | | PDT | | results section. | + +--------+ + + + | LACTIC ACID | STAT | 07/24/2018 | | Results for this | | | | 10:45 AM | | procedure are in the | | | | PDT | | results section. | + +--------+ + + + | COMPREHENSIVE | STAT | 07/24/2018 | | Results for this | | METABOLIC PANEL | | 10:45 AM | | procedure are in the | | | | PDT | | results section. | + +--------+ + + + documented in this encounter Results ECG - EXTERNAL SCAN (07/28/2018 12:00 AM PDT) + + + | Narrative | Performed At | + + + | Ordered by an | | | unspecified provider. | | + + + Urinalysis with Microscopic with Culture if Indicated (07/24/2018 7:15 PM PDT) + + + + + [...] - 1.030 | [facility] | | | [place] | | | [facility] | | | | | | [facility] | | + + + + + + | Protein, | 30 mg/dL (A) | Negative | [facility] | [...] + + + + | Glucose, | 50 mg/dL (A) | Normal | [facility] | [...] + + + + | TRANSITIONA | Trace (A) | None Seen /HPF | [facility] [...] + + + | MUCUS UA | Rare (A) | None seen /LPF | [facility] | | | | | | [facility] | | [facility] | | | | | | [facility]ATORY | | + + + + + + | CALCIUM | Few (A) | None Seen /HPF | [facility] | | | [facility] | | | [facility] | | [...] + + | [facility] | [address] | [place] [address] | [phone] | | [facility] | | | | + + + + + XR Chest AP Portable (07/24/2018 12:10 PM PDT) + + | Specimen | + + | | + + + + + | Impressions | Performed At | + + + | IMPRESSION: Central venous catheter placement. Multifocal | [facility] | | pneumonia. Dictated by: Massimo Alba | | + + + + + + | Narrative | Performed At | + + + | EXAMINATION: XR CHEST AP PORTABLE HISTORY: post central line | [facility] | | insertion COMPARISON STUDY: July 23, 2017 FINDINGS: The | | | lungs are again noted to have patchy right-sided airspace opacity. | | | New subclavian central venous catheter is present on the left with | | | the catheter tip terminating in the superior vena cava. No pleural | | | effusion. No pneumothorax. Heart size is stable. No acute | | | osseous process. | | + + + + + | Procedure Note | + + | Adithya Mcneill Results In - 07/24/2018 1:00 PM PDT EXAMINATION:XR CHEST AP | | PORTABLEHISTORY:post central line insertionCOMPARISON STUDY:July 23, 2017FINDINGS:The | | lungs are again noted to have patchy right-sided airspace opacity. New subclavian | | central venous catheter is present on the left with the catheter tip terminating in the | | superior vena cava. No pleural effusion. No pneumothorax. Heart size is stable. No | | acute osseous process.IMPRESSION: IMPRESSION:Central venous catheter | | placement.Multifocal pneumonia.Dictated by: Massimo Acevesectronically Signed by: | | Massimo Alba on 07/24/2018 12:56 PM | | | |FINDINGS: | |The lungs are again noted to have patchy right-sided airspace opacity. New subclavian cent ral venous catheter is present on the left with the catheter tip terminating in the superior vena cava. No pleural effusion. No pneumothorax. Heart size is | |stable. No acute osseous process. | | | |IMPRESSION: | |IMPRESSION: | |Central venous catheter placement. | |Multifocal pneumonia. | | | |Dictated by: Massimo Alba | | | | | + + + +---------+ + + | Performing | Address | City/State/Zipcode | Phone Number | | Organization | | | | + +---------+ + + | [facility] | | | | + +---------+ + + Blood Gas, Arterial (07/24/2018 11:46 AM PDT) + + + + + + | Component | Value | Ref Range | Performed | Pathologist | | | | | At | Signature | + + + + + + | pH Temp | 7.34 (L) | 7.35 - 7.45 | [facility] | | | Corrected, | | | [facility] | | | [facility] | | | [facility] | | | | | | [facility]AT[facility] | | + + + + + + | pCO2 Temp | 43 | 35 - 45 mm Hg | [facility] | | | Corrected, | | | [facility] | | | [facility] | | | | | | [facility] | | + + + + + + | pO2 Temp | 91 | 69 - 116 mm Hg | [facility] | | | Corrected, | | | [facility] | | | [facility] | | [facility] | | | | | | [facility] | | + + + + + + | pH, | 7.34 (L) | 7.35 - 7.45 | [facility] | | | Arterial | | | [facility] | | | | | | [facility] | | + + + + + + | pCO2, | 42 | 35 - 45 mm Hg | [facility] | | | Arterial | | | [facility] | | | | | | [facility] | | + + + + + + | pO2, | 88 | 69 - 116 mm Hg | [facility] | | | Arterial | | | [facility] | | | | | | [facility] | | + + + + + + | HCO3, | 22.6 | 17.0 - 28.0 | [facility] | | | Arterial | | mmol/L | [facility] | [facility] | | | | | | [facility] | | + + + + + + | Base | -3.0 (L) | -2.4 - 2.3 | [facility] | | | Excess, | | mmol/L | [facility] | | | [facility] | | | [facility] | | | | | | [facility] | | + + + + + + | TCO2, | 24 | 21 - 25 mmol/L | [facility] | | | Arterial | | | [facility] | [facility] | | | | | | [facility] | | + + + + + + | O2 | 97 | 95 - 99 % | [facility] | | | Saturation, | | | [facility] | | | [facility] | | [facility] | | | | | | LAB[facility]ATORY | | + + + + + + | FiO2 | 65.0 | % | [facility] | | | | | | [facility] | [facility] | [facility] | | | | | | [facility] | | + + + + + + | PATIENT | 37.5 | | [facility] | | | TEMP | | | [facility] | | | [...] + + | [facility] | [address] | [place] [address] | [phone] | | [facility] | | | | + + + + + XR Chest AP Portable (07/24/2018 11:23 AM PDT) + + | Specimen | + + | | + + + + + | Impressions | Performed At | + + + | IMPRESSION: Multifocal pneumonia Dictated by: Massimo Alba | [facility] | | | | + + + + + + | Narrative | Performed At | + + + | EXAMINATION: XR CHEST AP PORTABLE HISTORY: altered mental | [facility] | | status, hypoxia COMPARISON STUDY: July 15, 2017 FINDINGS: | | | The lungs are hypoventilated. Patchy right upper and lower airspace | | | opacities. Hazy opacity is also noted laterally at the left base. | | | Query small left pleural effusion. No pneumothorax. Heart size | | | is stable. No acute osseous process. | | + + + + + | Procedure Note | + + | Osito, Rad Results In - 07/24/2018 11:33 AM PDT EXAMINATION:XR CHEST AP | | PORTABLEHISTORY:altered mental status, hypoxiaCOMPARISON STUDY:July 15 | | 2017FINDINGS:The lungs are hypoventilated. Patchy right upper and lower airspace | | opacities. Hazy opacity is also noted laterally at the left base. Query small left | | pleural effusion. No pneumothorax. Heart size is stable. No acute osseous | | process.IMPRESSION: IMPRESSION:Multifocal pneumoniaDictated by: Massimo | | [place] | |July 15, 2017 | | | |FINDINGS: | |The lungs are hypoventilated. Patchy right upper and lower airspace opacities. Hazy opaci ty is also noted laterally at the left base. Query small left pleural effusion. No pneumot horax. Heart size is stable. No acute osseous process. | | | |IMPRESSION: | |IMPRESSION: | |Multifocal pneumonia | | | |Dictated by: Massimo Alba | | | | | + + + +---------+ + + | Performing | Address | City/State/Zipcode | Phone Number | | Organization | | | | + +---------+ + + | [facility] | | | | + +---------+ + + CT Head wo Contrast (07/24/2018 11:14 AM PDT) + + | Specimen | + + | | + + + + + | Impressions | Performed At | + + + | IMPRESSION: 1. No acute intracranial process. 2. Mild volume loss. | [facility] | | 3. Mild white matter disease. 4. 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 5. Mild sinus mucosal thickening. 6. The results of the | | | study were discussed with MACARIO SIBLEY at 11:24 | | | Dictated by: Massimo Alba | | + + + + + + | Narrative | Performed At | + + + | EXAMINATION: CT HEAD WO CONTRAST HISTORY: altered mental | [facility] | | status COMPARISON STUDY: May 13, 2018, July 15, 2018 | | | TECHNIQUE: 5 mm axial slices were acquired through the brain without | | | contrast. DOSE REPORT: CTDIvol: 40.4 mGy. DLP: 737 mGy-cm. | | | Automated exposure control was utilized. FINDINGS: No evidence | | | of an acute intracranial hemorrhage, mass lesion, or midline shift. | | | Remote right cerebellar lacunar infarct. This is stable. The | | | reinoso-white matter interface is intact. The ventricles are symmetric. | | | Sulci are mildly prominent. Basilar cisterns are patent. Mild | | | periventricular white matter hypodensity. Calcifications are noted in | | | the cavernous internal carotid arteries. Scattered ethmoid sinus | | | mucosal thickening. Mastoid air cells are clear. No fracture. | | + + + + + | Procedure Note | + + | Osito, Rad Results In 07/24/2018 11:27 AM PDT EXAMINATION:CT HEAD WO | | CONTRASTHISTORY:altered mental statusCOMPARISON STUDY:May 13, 2018, July 15 | | 2019TECHNIQUE:5 mm axial slices were acquired through the brain without contrast.DOSE | | REPORT:CTDIvol: 40.4 mGy. DLP: 737 mGy-cm. Automated exposure control was | | utilized.FINDINGS:No evidence of an acute intracranial hemorrhage, mass lesion, or | | midline shift. Remote right cerebellar lacunar infarct. This is stable.The reinoso-white | | matter interface is intact.The ventricles are symmetric.Sulci are mildly | | prominent.Basilar cisterns are patent.Mild periventricular white matter | | hypodensity.Calcifications are noted in the cavernous internal carotid | | arteries.Scattered ethmoid sinus mucosal thickening.Mastoid air cells are clear.No | | fracture.IMPRESSION: IMPRESSION:1. No acute intracranial process.2. Mild volume loss.3. | | Mild white matter disease.4. Remote right cerebellar lacunar infarct.5. Mild sinus | | mucosal thickening.6. The results of the study were discussed with MACARIO DOSS | | MEL at 11:24Dictated by: Massimo Acevesectronically Signed by: Massimo Alba | | on 07/24/2018 11:24 AM | |FINDINGS: | |No evidence of an acute intracranial hemorrhage, mass lesion, or midline shift. Remote rig ht cerebellar lacunar infarct. This is stable. | |The reinoso-white matter interface is intact. | |The ventricles are symmetric. | |Sulci are mildly prominent. | |Basilar cisterns are patent. | |Mild periventricular white matter hypodensity. | |Calcifications are noted in the cavernous internal carotid arteries. | |Scattered ethmoid sinus mucosal thickening. | |Mastoid air cells are clear. | |No fracture. | | | |IMPRESSION: | |IMPRESSION: | |1. No acute intracranial process. | |2. Mild volume loss. | |3. Mild white matter disease. | |4. Remote right cerebellar lacunar infarct. | |5. Mild sinus mucosal thickening. | |6. The results of the study were discussed with MACARIO SIBLEY at 11:24 | | | | | | | |Dictated by: Massimo Alba | | | | | + + + +---------+ + + | Performing | Address | City/State/Zipcode | Phone Number | | Organization | | | | + +---------+ + + | [facility] | | | | + +---------+ + + Culture, Blood (07/24/2018 11:07 AM PDT) + + + + + [...] + + | [facility] | [address] | [place] [address] | [phone] | | [facility] | | | | + + + + + ECG 12 lead (07/24/2018 10:52 AM PDT) + + | Specimen | + + | | + + + + + | Narrative | Performed At | + + + | Heart Rate: | [facility] | | 104 bpmQRS Interval: 96 msQT Interval: 328 msQTC Interval: 432 msP | [facility] | | [place]: 33 degQRS [place]: -19 degT Wave [place]: 33 degP-R Interval: 160 | | | msec- OTHERWISE NORMAL ECG -SINUS TACHYCARDIA [Now Present]BORDERLINE | | | LEFT AXIS DEVIATION [Remains]SIGNIFICANT RHYTHM CHANGES[Now Absent] | | | SINUS RHYTHM | | |T Wave [place]: 33 deg | | |P-R Interval: 160 msec | | |- OTHERWISE NORMAL ECG - | | |SINUS TACHYCARDIA [Now Present] | | |BORDERLINE LEFT AXIS DEVIATION [Remains] | | |SIGNIFICANT RHYTHM CHANGES | | |[Now Absent] SINUS RHYTHM | | + + + + +---------+ + + | Performing | Address | City/State/Zipcode | Phone Number | | Organization | | | | + +---------+ + + | [facility] | | | | + +---------+ + + Culture, Blood (07/24/2018 10:50 AM PDT) + + + + + [...] + + | [facility] | [address] | [place] [address] | [phone] | | [facility] | | | | + + + + + Differential, Manual (07/24/2018 10:45 AM PDT) + + + + + + | Component | Value | Ref Range | Performed | Pathologist | | | | | At | Signature | + + + + + + | % Segmented | 67.0 | 42.0 - 76.0 % | [facility] | | | | | [facility] | | | Neutrophils | | | [facility] | | | | | | LABORATORY | | + + + + + + | % | 4.0 (L) | 20.0 - 40.0 % | [facility] | | | Lymphocytes | | | [facility] | | | | | | [facility] | | | | | | [facility]ORY | | + + + + + + | % Monocytes | 8.0 | 3.0 - 13.0 % | [facility] | | | | | [facility] | | [facility] | [facility] | | | | | | [facility] | | + + + + + + | % | 9.0 (H) | 0.0 - 7.0 % | [facility] | | | Eosinophils | | | [facility] | | | | | [facility] | | | | | | [facility] | | + + + + + + | % Basophils | 0.0 | 0.0 - 2.0 % | [facility] | | | | | [facility] | | [facility] | | | | | | [facility] | | + + + + + + | % | 1.0 (H) | <0.0 % | [facility] | | | Metamyelocy | | | [facility] | | | [facility] | | [facility] | | | | | | [facility] | | + + + + + + | % Bands | 11.0 (H) | 0.0 - 7.0 % | [facility] | | | | | [facility] | | | | [facility] | | | | | | [facility] | | + + + + + + | Absolute | 16.28 (H) | 2.80 - 7.70 | [facility] | | | Segmented | | K/uL | [facility] | | | Neutrophils | | | [facility]OSP[facility] | | | | | | LABORATORY | | + + + + + + | Absolute | 0.97 (L) | 1.20 - 3.30 | [facility] | | | Lymphocytes | | K/uL | [facility] | | | | | [facility] | | | | | | LABORATORY | | + + + + + + | Absolute | 1.94 (H) | 0.00 - 0.80 | [facility] | | | Monocytes | | K/uL | [facility] | [facility] | [facility] | | | | | | LABORATORY | | + + + + + + | Absolute | 2.19 (H) | 0.00 - 0.70 | [facility] | | | Eosinophils | | K/uL | [facility] | [facility] | | | | | | LABORATORY | | + + + + + + | Absolute | 0.00 | 0.00 - 0.20 | [facility] | | | Basophils | | K/uL | [facility] | [facility] | | | | | | LABORATORY | | + + + + + + | Absolute | 0.24 | K/uL | [facility] | | | Metamyelocy | | | [facility] | | | [facility] | | | [facility] | | | | | | LABORATORY | | + + + + + + | Absolute | 2.67 (H) | 0.00 - 0.15 | [facility] | | | Bands | | K/uL | [facility] | [facility] | | | | | | LABORATORY | | + + + + + + | Total | 100 | | [facility] | | | Counted | | | [facility] | | | | [facility] | | | | | | LABORATORY | | + + + + + + | RBC | Normal | | [facility] | | | Morphology | | | [facility] | | | | [facility] | | | | | | LABORATORY | | + + + + + + | WBC | Normal | | [facility] | | | Morphology | | | [facility] | | | [facility] | | | | | | LABORATORY | | + + + + + + | Platelet | Normal | | [facility] | | [...] + + | [facility] | [address] | [place] [address] | [phone] | | HOSPITAL LAB[facility]ATORY | | | | + + + + + Magnesium (07/24/2018 10:45 AM PDT) + +---------+ + + + | Component | Value | Ref Range | Performed | Pathologist | | | | | At | Signature | + +---------+ + + + | Magnesium | 1.4 (L) | 1.8 - 2.4 mg/dL | [...] + + | [facility] | [address] | [place] [address] | [phone] | | H[facility]PITAL LAB[facility]ORY | | | | + + + + + T4Wilber (07/24/2018 10:45 AM PDT) + +---------+ + + + | Component | Value | Ref Range | Performed | Pathologist | | | | | At | Signature | + +---------+ + + + | FT4 | 2.1 (H) | 0.8 - 1.5 ng/dL | [...] + + | [facility] | [address] | [place] [address] | [phone] | | [facility]PITAL LAB[facility]ORY | | | | + + + + + Lactic Acid (07/24/2018 10:45 AM PDT) + +-------+ + + + | Component | Value | Ref Range | Performed | Pathologist | | | | | At | Signature | + +-------+ + + + | Lactate | 1.8 | 0.4 - 2.1 | [facility] | [...] + + | [facility] | [address] | [place] [address] | [phone] | | H[facility]PITAL LAB[facility]ORY | | | | + + + + + Protime INR (07/24/2018 10:45 AM PDT) + +-------+ + + + | Component | Value | Ref Range | Performed | Pathologist | | | | | At | Signature | + +-------+ + + + | Prothrombin | 10.4 | 9.3 - 11.4 | [facility] | | | Time | | seconds | [facility] | | | | | [facility] | | | | | | LABORATORY | | + +-------+ + + + | INR | 1.0 | 0.8 - 1.2 | [facility] | [...] + + | [facility] | [address] | [place] [address] | [phone] | | [facility]ITAL [facility]ORY | | | | + + + + + Troponin I (07/24/2018 10:45 AM PDT) + +-------+ + + [...] such as unstable angina or | [facility] | | non-Q wave myocardial infarction, cardiac troponin I levels provide | HOSPITAL | | useful prognostic information and aid in early detection of such | LABORATORY | | patients with an increased risk of . The Risk Stratification | | | cutpoint for the Troponin I method is 0.1 ng/mL. The diagnostic | | | cutoff point for the diagnosis of NM is 0.8 ng/mL for the Troponin I | | | method. | | + + + + + + + + | Performing | Address | City/State/Zipcode | Phone Number | | Organization | | | | + + + + + | [facility] | [address] | [place] [address] | [phone] | | [facility]ORY | | | | + + + + + Comprehensive Metabolic Panel (07/24/2018 10:45 AM PDT) + + + + + + | Component | Value | Ref Range | Performed | Pathologist | | | | | At | Signature | + + + + + + | Na | 135 | 132 - 143 | [facility] | | | | | mmol/L | [facility] | | | | [facility] | | | | | | LABORATORY | | + + + + + + | K | 4.8 | 3.3 - 4.9 | [facility] | | | | | mmol/L | [facility] | | | | [facility] | | | | | | LABORATORY | | + + + + + + | Cl | 98 | 95 - 108 mmol/L | [facility] | | | | | | [facility] | | | | | | [facility]ATORY | | + + + + + + | CO2 | 22 (L) | 23 - 34 mmol/L | [facility] | | | | | [facility] | | | | | | [facility]ATORY | | + + + + + + | Anion Gap | 15 | 7 - 16 mmol/L | [facility] | | | | | | [facility] | | | | | | [facility]ATORY | | + + + + + + | Glucose | 170 (H) | 70 - 110 mg/dL | [facility] | | | | | [facility] | | | | | | [facility]ATORY | | + + + + + + | BUN | 40 (H) | 5 - 26 mg/dL | [facility] | | | | | [facility] | | | | | | LAB[facility]ATORY | | + + + + + + | Creatinine | 3.24 (H) | 0.70 - 1.40 | [facility] | | | | | mg/dL | [facility] | | | | [facility] | | | | | | LABORATORY | | + + + + + + | eGFR if not | 19 (L)Comment: | >=60 | [facility] | | | | GLOMERULAR FILTRATION | mL/min/1.73m2 | [facility] | | | [facility] | RATE,ESTIMATED | | [facility] | | | | mL/min/1.26i6Cjmy than | | LABORATORY | | | [...] + + + + | Calcium | 8.6 | 8.3 - 10.0 | [facility] | | | | | mg/dL | [facility] | [facility] | | | | | | LABORATORY | | + + + + + + | Albumin | 3.4 | 3.0 - 4.5 g/dL | [facility] [...] + + + + | Total | 8.0 | 6.6 - 8.5 g/dL | [facility] | | | Protein | | | [facility] | | | | [facility] | | | | | | LABORATORY | | + + + + + + | AST | 78 (H) | 0 - 38 U/L | [facility] | | | | | | [facility] | | | | | | [facility]ATORY | | + + + + + + | ALT | 90 (H) | 16 - 63 U/L | [facility] | | | | | [facility] | | | | | | [facility]ATORY | | + + + + + + | Alkaline | 120 (H) | 46 - 116 U/L | [facility] | | | Phosphatase | | | [facility] | [facility] | [facility] | | | | | | LABORATORY | | + + + + + + | Globulin | 4.6 (H) | 2.4 - 4.5 g/dL | [facility] | | | | | [facility] | | | | | | [facility]ATORY | | + + + + + + | Albumin/Lizbeth | 0.7 (L) | 0.8 - 2.0 | [facility] | [...] + + | [facility] | [address] | [place] [address] | [phone] | | HOSPITAL LAB[facility]ATORY | | | | + + + + + CBC with Differential (07/24/2018 10:45 AM PDT) + + + + + + | Component | Value | Ref Range | Performed | Pathologist | | | | | At | Signature | + + + + + + | WBC | 24.3 (H) | 4.6 - 10.5 K/uL | [facility] | | | | | [facility] | | | | | | [facility] | | + + + + + + | RBC | 4.22 (L) | 4.36 - 5.83 | [facility] | | | | | M/uL | [facility] | | | | [facility] | | | | | | LABORATORY | | + + + + + + | Hemoglobin | 12.7 (L) | 13.1 - 17.4 | [facility] | | | | | g/dL | [facility] | [facility] | | | | | | LABORATORY | | + + + + + + | Hematocrit | 37.5 (L) | 39.0 - 51.9 % | [facility] | | | | | [facility] | | | | | | [facility]ATORY | | + + + + + + | MCV | 88.9 | 82.0 - 96.0 fL | [facility] | | | | | [facility] | | | | | | [facility]ATORY | | + + + + + + | MCH | 30.1 | 27.7 - 32.3 pg | [facility] | [facility] | | | [facility] | | | | | | [facility]ATORY | | + + + + + + | MCHC | 33.9 | 32.0 - 36.9 | [facility] | | | | | g/dL | [facility] | [facility] | | | | | | LAB[facility]ATORY | | + + + + + + | RDW-CV | 16.5 | 0.0 - 17.0 % | [facility] | | | | | | [facility] | | | | | | [facility]ATORY | | + + + + + + | Platelet | 156 | 150 - 450 K/uL | [facility] | | | Count | | | [facility] | | | | [facility] | | | | | | LABORATORY | | + + + + + + | MPV | 10.9 | 9.4 - 12.4 fL | [facility] [...] + + | [facility] | [address] | [place] [address] | [phone] | | H[facility]PITAL LAB[facility]ORY | | | | + + + + + documented in this encounter Visit Diagnoses + + | Diagnosis | + + | Acute respiratory failure with hypoxia (HCC) - Primary Acute respiratory failure | + + | Sepsis, due to unspecified organism | + + | Pneumonia of right lung due to infectious organism, unspecified part of lung | + + | Acute renal failure with other specified pathological lesion in kidney (HCC) | + + | Hypomagnesemia Disorders of magnesium metabolism | + + documented in this encounter Administered Medications + +--------+ +-------+------+------+ | Medication Order | MAR | Action | Dose | Rate | Site | | | Action | Date | | | | + +--------+ +-------+------+------+ | albuterol-ipratropium 2.5-0.5 | Given | 07/25/19 | 3 mLs | | | | mg/3 mL nebulizer solution 3 mL | | 19 2:30 | | | | | 3 mL, Nebulization, RT Once, Fri | | PM PDT | | | | | 07/24/18 at 1445, For 1 dose | | | | | | + +--------+ +-------+------+------+ +---+---+ | | | +---+---+ + + + +---------+-------+---+ | norepinephrine (LEVOPHED) 16 | Rate/Dos | 07/25/19 | 1 | 3.8 | | | mcg/mL in sodium chloride 0.9% | e Verify | 19 7:30 | mcg/min | mL/hr | | | 500 mL infusion 1-30 mcg/min | | PM PDT | | | | | (3.75-112.5 mL/hr, rounded to | | | | | | | 3.8-112.5 mL/hr), at 3.8-112.5 | | | | | | | mL/hr, Intravenous, TITRATED, | | | | | | | Starting 07/24/18 at 1330, | | | | | | | Titration Instruction: See below, | | | | | | | Goal: SBP greater than 90, | | | | | | | Initial dose: 3 mcg/min., | | | | | | | Increase rate by: 2 mcg/min every | | | | | | | 5 minutes., Decrease rate by: 2 | | | | | | | mcg/min every 5 minutes., *: | | | | | | | Titrate drug per order as | | | | | | | tolerated. Titration may vary | | | | | | | based on the patient | | | | | | | | | | | | | | s critical condition. | | | | | | + + + +---------+-------+---+ + + +---------+-------+---+ | Rate/Dose Verify | 07/25/19 | 1 | 3.8 | | | | 19 4:40 | mcg/min | mL/hr | | | | PM PDT | | | | + + +---------+-------+---+ | Rate/Dose Change | 07/25/19 | 1 | 3.8 | | | | 19 1:32 | mcg/min | mL/hr | | | | PM PDT | | | | + + +---------+-------+---+ +---+---+ | | | +---+---+ + +---------+ +---------+-------+---+ | piperacillin-tazobactam (ZOSYN) | New Bag | 07/25/19 | 3.375 g | 200 | | | 3.375 g in sodium chloride 0.9% | | 19 12:18 | | mL/hr | | | 100 mL IVPB 3.375 g, | | PM PDT | | | | | Intravenous, Administer over 0.5 | | | | | | | Hours, ONCE, 07/24/18 at 1145, | | | | | | | For 1 dose, Activate system and | | | | | | | mix before use., Indications: | | | | | | | Pneumonia | | | | | | + +---------+ +---------+-------+---+ +---+---+ | | | +---+---+ + +---------+ +--------+-------+---+ | sodium chloride 0.9% (NS) bolus | New Bag | 07/25/19 | 1,000 | 1000 | | | 1,000 mL 1,000 mL, Intravenous, | | 19 11:22 | mLs | mL/hr | | | Administer over 1 Hours, ONCE, | | AM PDT | | | | | 07/24/18 at 1115, For 1 dose | | | | | | + +---------+ +--------+-------+---+ +---+---+ | | | +---+---+ + +---------+ +--------+-------+---+ | sodium chloride 0.9% (NS) bolus | New Bag | 07/25/19 | 1,000 | 2000 | | | 1,000 mL 1,000 mL, Intravenous, | | 19 12:23 | mLs | mL/hr | | | Administer over 30 Minutes, | | PM PDT | | | | | ONCE, 07/24/18 at 1200, For 1 | | | | | | | dose | | | | | | + +---------+ +--------+-------+---+ +---+---+ | | | +---+---+ + +---------+ +--------+-------+---+ | sodium chloride 0.9% (NS) bolus | New Bag | 07/25/19 | 1,000 | 500 | | | 1,000 mL 1,000 mL, Intravenous, | | 19 1:28 | mLs | mL/hr | | | Administer over 2 Hours, ONCE, | | PM PDT | | | | | 07/24/18 at 1330, For 1 dose | | | | | | + +---------+ +--------+-------+---+ +---+---+ | | | +---+---+ + +---------+ +-----+--------+---+ | vancomycin 1 g in sodium | New Bag | 07/25/19 | 1 g | 166.7 | | | chloride 0.9% 250 mL IVPB 1 g, | | 19 12:27 | | mL/hr | | | Intravenous, Administer over 90 | | PM PDT | | | | | Minutes, ONCE, 07/24/18 at | | | | | | | 1215, For 1 dose, Activate system | | | | | | | and mix before use., | | | | | | | Indications: | | | | | | | Healthcare-Associated Pneumonia | | | | | | + +---------+ +-----+--------+---+ + +---+ | | | + +---+ | vancomycin 750 mg in sodium | | | chloride 0.9% 250 mL IVPB 750 | | | mg, Intravenous, Administer over | | | 60 Minutes, EVERY 24 HOURS | | | (Daily), First dose on Sat | | | 07/25/18 at 1200, Keep in | | | refrigerator., Indications: | | | Healthcare-Associated Pneumonia | | + +---+ | | | + +---+ | vancomycin per pharmacy | | | PHARMACY CONSULT, Starting Fri | | | 07/24/18 at 1126, Indications: | | | Pneumonia | | + +---+ | | | + +---+ documented in this encounter Additional Health Concerns + + + + | Infection | Noted Time | Resolved Time | + + + + | Methicillin-resistant Staphylococcus aureus | 07/20/2018 4:00 PM | | | | PDT | | + + + + documented as of this encounter
--- OUTSIDE RECORDS SUMMARY | ~2019-02-17 | XMS | Encounter Summary ---
Demographics + + + | Address | [address] | | | [place] [address] | + + + | Home Phone | | + + + | Preferred Language | Unknown | + + + | Marital Status | | + + + | Church Affiliation | 1025 | + + + [...] Team Providers + +------+ + | Care Farmhand Name | Role | Phone | + [...] Description | +--------+--------+ + + + | 08/27/ | Refill | [facility] | Horacio Silvestre, | Medication Refill | | 2019 | | [facility] | [address] [place] | | | | | [facility] [address] | [facility], [place] | | | | | [address] [place], | [address] | | | | | [place] [address] | [phone] | | | | | [phone] | | | +--------+--------+ + + + [...] [place] | | | | | | [address] | | | | | | [phone] | | | | | | | | +--------+---------+ + + + | 02/26/ | Office | Urology | Lillie Fowler | | | 2018 | Visit | | LILLIE Lopez [address] | | | | | | [address] | | | | | | [place], [place] | | | | | | [address] | | | | | | [phone] | | | | | | | | +--------+---------+ + + + | 03/16/ | Office | Neurology | Theresa, | | | 2018 | Visit | | SHONDA M[address]ney [address] | | | | | [address] [place], | | | | | | [place] [address] | | | | | | [phone] | | | | | | | | +--------+---------+ + + + | 04/12/ | Office | Primary Care | Massimo Ramos | | | 2019 | Visit | | MD Fer [address] | | | | | | [address] [place] | | | | | | [address] | | | | | | | | +--------+---------+ + + + | 10/03/ | Office | Neurology | Fabián Carias MD | | | 2019 | Visit | | [address] | | | | | | [place] | | | | | | [address] | | | | | | | [...] | | | care | | | Supervisor Landscape-C | | | | | | | [...] | | | care | | | Supervisor Landscape-C | | | | | | | [...] | | | care | | | Supervisor Landscape-C | | | | | | | [...] | | | care | | | Supervisor Landscape-C | | | | | | | [...] | insulin (HCC) | + + | 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
--- OUTSIDE RECORDS SUMMARY | ~2019-02-17 | XMS | Encounter Summary ---
Demographics + + + | Address | [address] | | | [place] [address] | + + + | Home Phone | | + + + | Preferred Language | Unknown | + + + | Marital Status | | + + + | Holiness Affiliation | 1025 | + + + | Race | Unknown | + + + | Ethnic Group | Unknown | + + + Author + + + | Author | [facility] | | | and [place] | + + + | Organization | [facility] | | | [...] Team Providers + +------+ + | Care Shake Maker Name | Role | Phone | + +------+ + | Horacio Silvestre DO | PCP | | + +------+ + Reason for Referral Home Health Care (Emergency) +--------+ + + + + + | Status | Reason | Specialty | Diagnoses / | Referred By | Referred To | | | | | Procedures | Contact | Contact | +--------+ + + + + + | Denied | Specialty | Home Health | Diagnoses | [place], | [facility] | | | Services | Services | History of | Horacio S, DO | [facility] | | | Required | | arterial | [address] | HOSPITAL HOME | | | | | ischemic | [place], | [facility] | | | | | stroke Type | [place] | [facility] [address] | | | | | 2 diabetes | [address] | [address] | | | | | mellitus | Phone: | [place] | | | | | with | [phone] | [place], [place] | | | | | diabetic | Fax: | [address] | | | | | polyneuropat | [phone] | Phone: | | | | | hy, with | | [phone] | | | | | long-term | | Fax: | | | | | current use | | [phone] | | | | | of insulin | | | | | | | (HCC) | | | | | | | Dementia | | | | | | | associated | | | | | | | with other | | | | | | | underlying | | | | | | | disease | | | | | | | without | | | | | | | behavioral | | | | | | | disturbance | | | | | | | (HCC) | | | | | | | Panlobular | | | | | | | emphysema | | | | | | | (HCC) | | | | | | | Pneumonia | | | | | | | due to | | | | | | | infectious | | | | | | | organism, | | | | | | | unspecified | | | | | | | laterality, | | | | | | | unspecified | | | | | | | part of lung | | | | | | | Multilevel | | | | | | | | | | | | | | degenerative | | | | | | | disc | | | | | | | disease | | | | | | | Primary | | | | | | | osteoarthrit | | | | | | | is involving | | | | | | | multiple | | | | | | | joints | | | | | | | Neurologic | | | | | | | gait | | | | | | | disorder | | | +--------+ + + + + + Reason for Visit + + + | Reason | Comments | + + + | Home Health | | + + + Encounter Details +--------+ + + + + | Date | Type | Department | Care Team | Description | +--------+ + + + + | 10/19/ | Telephone | [facility] | Horacio Silvestre, | Home Health | | 2019 | | [facility] | [address] | | | | | MEDICAL [facility] [address] | [facility], [place] | | | | | [address] [place], | [address] | | | | | [place] [address] | [phone] | | | | | [phone] | | | +--------+ + + + [...] [place] | | | | | | [address] | | | | | | [phone] | | | | | | | | +--------+---------+ + + + | 02/26/ | Office | Urology | Lillie Fowler | | | 2018 | Visit | | LILLIE Lopez [address] | | | | | | [address] | | | | | | [place], [place] | | | | | | [address] | | | | | | [phone] | | | | | | | | +--------+---------+ + + + | 03/16/ | Office | Neurology | Theresa, | | | 2018 | Visit | | SHONDA M[address]ney [address] | | | | | [address] [place], | | | | | | [place] [address] | | | | | | [phone] | | | | | | | | +--------+---------+ + + + | 04/12/ | Office | Primary Care | Massimo Ramos | | | 2019 | Visit | | MD Fer [address] | | | | | | [place] | | | | | | [address] | | | | | | | | +--------+---------+ + + + | 10/03/ | Office | Neurology | Fabián Carias MD | | | 2019 | Visit | | [address] | | | | | | [place] | | | | | | [address] | | | | | | | | +--------+---------+ + + + + + +--------+ + + | Name | Type | Priori | Associated Diagnoses | Order Schedule | | | | ty | | | + + +--------+ + + | Home Health, | Outpatient | Routin | History of | Ordered: 10/19/2018 | | External - AMB | Referral | e | arterial ischemic | | | Referral | | | stroke 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, with | | | | | | long-term current | | | | | | use of insulin (HCC) | | | | | | Dementia | | | | | | associated with | | | | | | other underlying | | | | | | disease without | | | | | | behavioral | | | | | | disturbance | | | | | | Panlobular emphysema | | | | | | (HCC) Pneumonia | | | | | | due to infectious | | | | | | organism, | | | | | | unspecified | | | | | | laterality, | | | | | | unspecified part of | | | | | | lung Multilevel | | | | | | degenerative disc | | | | | | disease Primary | | | | | | osteoarthritis | | | | | | involving multiple | | | | | | joints 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 | | + + +--------+ + + [...] | | | care | | | News Photographer-C | | | | | | | [...] | | | care | | | News Photographer-C | | | | | | | [...] | | | care | | | News Photographer-C | | | | | | | [...] | | | care | | | News Photographer-C | | | | | | | linical | + +--------+ +---+-----+ + + + | Note: Pt will | | check CBG's daily x1 | | Pt will take Lantis as | | prescribed | + + documented as of this encounter Visit Diagnoses + + | Diagnosis | + + | History of arterial ischemic stroke - Primary Transient ischemic attack (TIA), and | | cerebral infarction without residual deficits | + + | Type 2 diabetes mellitus with diabetic polyneuropathy, 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) | + + | 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) | + + | Panlobular emphysema (HCC) Other emphysema | + + | Pneumonia due to infectious organism, unspecified laterality, unspecified part of lung | + + | Multilevel degenerative disc disease Degeneration of intervertebral disc, site | | unspecified | + + | Primary osteoarthritis involving multiple joints | + + | Neurologic gait disorder Abnormality of gait | + + documented in this encounter Additional Health Concerns + + + + | Infection | Noted Time | Resolved Time | + + + + | Methicillin-resistant Staphylococcus aureus | 07/20/2018 4:00 PM | | | | PDT | | + + + + documented as of this encounter"
--- OUTSIDE RECORDS SUMMARY | ~2019-02-17 | XMS | Encounter Summary ---
Demographics + + + | Address | [address] | | | [place] [address] | + + + | Home Phone [...] Team Providers + +------+ + | Care Landing Gear Mechanic Name | Role | Phone | + +------+ + | Ryan Gutiérrez MD | PCP | | + +------+ + Encounter Details +--------+ + + + + | Date | Type | Department | Care Team | Description | +--------+ + + + + | 01/03/ | Hospital | [facility] | Fabián Carias MD | | | 2017 | Encounter | HOSPITAL NEUROLOGY | [address] | | | | | CLINIC [address] | [place] | | | | | [address], | [address] | | | | | [place] [address] | | | | | | [phone] | | | +--------+ + + + [...] [place] | | | | | | [address] | | | | | | [phone] | | | | | | | | +--------+---------+ + + + | 02/26/ | Office | Urology | Malcolm Lillie | | | 2018 | Visit | | LILLIE Lopez [address] | | | | | [address] | | | | | | [place], [place] | | | | | | [address] | | | | | | [phone] | | | | | | | | +--------+---------+ + + + | 03/16/ | Office | Neurology | Theresa, | | | 2018 | Visit | | SHONDA M[address]ney [address] | | | | [address] [place], | | | | | | [place] [address] | | | | | | [phone] | | | | | | | | +--------+---------+ + + + | 04/12/ | Office | Primary Care | Massimo Ramos | | | 2019 | Visit | | MD Fer [address] | | | | | | [address] [place] | | | | | | [id number] | | | | | | | | +--------+---------+ + + + | 10/03/ | Office | Neurology | Fabián Carias MD | | | 2019 | Visit | | [address] | | | | | | [place] | | | | | | [phone] | | | | | | | [...] | | | care | | | Methodologist-C | | | | | | | [...] | | | care | | | Methodologist-C | | | | | | | [...] | | | care | | | Methodologist-C | | | | | | | [...] | | | care | | | Methodologist-C | | | | | | | linical | + +--------+ +---+-----+ + + + | Note: Pt will | | check CBG's daily x1 | | Pt will take Lantis as | | prescribed | + + documented as of this encounter Visit Diagnoses Not on filedocumented in this encounter"
--- OUTSIDE RECORDS SUMMARY | ~2019-02-17 | XMS | Encounter Summary ---
Demographics + + + | Address | [address] | | | [place] [address] | + + + | Home Phone | | + + + | Preferred Language | Unknown | + + + | Marital Status | | + + + | Adventism Affiliation | 1025 | + + + | Race | Unknown | + + + | Ethnic Group | Unknown | + + + Author + + + | Author | [facility] | | | and [place] | + + + | Organization | [facility] | | | and [...] Team Providers + +------+ + | Care Welder Assembler Name | Role | Phone | + +------+ + | Horacio Silvestre DO | PCP | | + +------+ + Reason for Visit + + + | Reason | Comments | + + + | Pain Management | | + + + Encounter Details +--------+ + + + + | Date | Type | Department | Care Team | Description | +--------+ + + + + | 08/01/ | Telephone | [facility] | Fabián Carias MD | Pain Management | | 2019 | | [facility] | [address] | | | | | CLIN[address] | [place] | | | | | DR [place], | [address] | | | | | [place] [address] | | | | | | [phone] | | | +--------+ + + + [...] [place] | | | | | | [address] | | | | | | [phone] | | | | | | | | +--------+---------+ + + + | 02/26/ | Office | Urology | Lillie Fowler | | | 2018 | Visit | | [address]ILLIE Lopez [address] | | | | | | [address] | | | | | | [place], [place] | | | | | | [address] | | | | | | [phone] | | | | | | | | +--------+---------+ + + + | 03/16/ | Office | Neurology | Theresa, | | | 2018 | Visit | | [address] | | | | | | [address] [place], | | | | | | [place] [address] | | | | | | [phone] | | | | | | | | +--------+---------+ + + + | 04/12/ | Office | Primary Care | Massimo Ramos | | | 2019 | Visit | | MD Fer [address] | | | | | | [place] | | | | | | [address] | | | | | | | | +--------+---------+ + + + | 10/03/ | Office | Neurology | Fabián Carias MD | | | 2019 | Visit | | [address] | | | | | | [place] | | | | | | [address] | | | | | | | [...] | | | care | | | Cyber Security Specialist-C | | | | | | [...] | | | care | | | Cyber Security Specialist-C | | | | | | [...] | | | care | | | Cyber Security Specialist-C | | | | | | [...] | | | care | | | Cyber Security Specialist-C | | | | | | [...]
--- OUTSIDE RECORDS SUMMARY | ~2019-02-17 | XMS | Encounter Summary ---
Demographics + + + | Address | [address] | | | [place] [address] | + + + | Home Phone | | + + + | Preferred Language | Unknown | + + + | Marital Status | | + + + | Sabianism Affiliation | 1025 | + + + | Race | Unknown | + + + | Ethnic Group | Unknown | + + + Author + + + | Author | [facility] | | | and [place] | + + + | Organization | [facility] | | | [...] Team Providers + +------+ + | Care Grinder Gear Name | Role | Phone | + [...] | +--------+ + + + + | 11/11/ | Telephone | [facility] | Charline Banks, | Care Coordination | | 2019 | | [facility] | Case | | | | | [facility] [address] | Traffic Enumerator-Clinical | | | | | [facility] [place], | | | | | | [place] [address] | | | | | | [phone] | | | +--------+ + + + [...] [place] | | | | | | [address] | | | | | | [phone] | | | | | | | | +--------+---------+ + + + | 02/26/ | Office | Urology | Lillie Fowler | | | 2018 | Visit | | [address] | | | | | | [address] | | | | | | [place], [place] | | | | | | [address] | | | | | | [phone] | | | | | | | | +--------+---------+ + + + | 03/16/ | Office | Neurology | Theresa, | | | 2018 | Visit | | [address] | | | | | | [address] [place], | | | | | | [place] [address] | | | | | | [phone] | | | | | | | | +--------+---------+ + + + | 04/12/ | Office | Primary Care | Massimo Ramos | | | 2019 | Visit | | MD Fer [address] | | | | | | [place] | | | | | | [address] | | | | | | | | +--------+---------+ + + + | 10/03/ | Office | Neurology | Fabián Carias MD | | | 2019 | Visit | | [address] | | | | | | [place] | | | | | | [address] | | | | | | | [...] | | | care | | | Traffic Enumerator-C | | | | | | | [...] | | | care | | | Traffic Enumerator-C | | | | | | | [...] | | | care | | | Traffic Enumerator-C | | | | | | | [...] | | | care | | | Traffic Enumerator-C | | | | | | | [...]
--- OUTSIDE RECORDS SUMMARY | ~2019-02-17 | XMS | Encounter Summary ---
Demographics + + + | Address | [address] | | | [place] [address] | + + + | Home Phone | | + + + | Preferred Language | Unknown | + + + | Marital Status | | + + + | Mandaen Affiliation | 1025 | + + + | Race | Unknown | + + + | Ethnic Group | Unknown | + + + Author + + + | Author | [facility] | | | and [place] | + + + | Organization | [facility] | | | [...] Team Providers + +------+ + | Care Traffic Personnel Supervisor Name | Role | Phone | + +------+ + | Horacio Silvestre DO | PCP | | + +------+ + Reason for Visit +--------+ + | Reason | Comments | +--------+ + | Other | certified mail | +--------+ + Encounter Details +--------+ + + + + | Date | Type | Department | Care Team | Description | +--------+ + + + + | 04/22/ | Documentati | [facility] | Faraz Tejada, | Other (certified | | 2018 | on | [facility] | DNP [address] | mail) | | | | MEDICAL CL[facility] [address] | [place] [address] | | | | | [address] [place], | [phone] | | | | | [place] [address] | | | | | | [phone] | | | +--------+ + + + [...] documented as of this encounter Progress Notes Lor Chopra - 04/22/2017 2:22 PM PSTCERTIFIED MAIL RECEIPT RECEIVED 04/30/17 BW.Electro nically signed by Lor Chopra at 04/30/2017 3:14 PM Lor Francis - 04/22/2017 2:2 2 PM PSTOXYCODONE 5MG SENT To [facility] ADDRESS [address] [place] [address] [place] [id number] [id number] 0000 [phone] d ocumented in this encounter Plan of Treatment +--------+---------+ [...] [place] | | | | | | [address] | | | | | | [phone] | | | | | | | | +--------+---------+ + + + | 02/26/ | Office | Urology | Lillie Fowler | | | 2018 | Visit | | [address] | | | | | | [address] | | | | | | [place], [place] | | | | | | [address] | | | | | | [phone] | | | | | | | | +--------+---------+ + + + | 03/16/ | Office | Neurology | Theresa, | | | 2018 | Visit | | [address] | | | | | | [address] [place], | | | | | | [place] [address] | | | | | | [phone] | | | | | | | | +--------+---------+ + + + | 04/12/ | Office | Primary Care | Massimo Ramos | | | 2019 | Visit | | MD [address] | | | | | | [place] | | | | | | [address] | | | | | | | | +--------+---------+ + + + | 10/03/ | Office | Neurology | Fabián Carias MD | | | 2019 | Visit | | [address] | | | | | | [place] | | | | | | [address] | | | | | | | [...] | | | care | | | Logistics Engineer-C | | | | | | [...] | | | care | | | Logistics Engineer-C | | | | | | [...] | | | care | | | Logistics Engineer-C | | | | | | [...] | | | care | | | Logistics Engineer-C | | | | | | | linical | + +--------+ +---+-----+ + + + | Note: Pt will | | check CBG's daily x1 | | Pt will take Lantis as | | prescribed | + + documented as of this encounter Visit Diagnoses Not on filedocumented in this encounter"
--- OUTSIDE RECORDS SUMMARY | ~2019-02-17 | XMS | Encounter Summary ---
Demographics + + + | Address | [address] | | | [place] [address] | + + + | Home Phone [...] Team Providers + +------+ + | Care Environmental Health And Safety Manager Name | Role | Phone | [...] | | | MEDICAL CL[facility] [address] | [facility], [place] | | | | | [address] [place], | [address] | | | | | [place] [address] | [phone] | | | | | [phone] | | | +--------+--------+ + + + [...] [place] | | | | | | [address] | | | | | | [phone] | | | | | | | | +--------+---------+ + + + | 02/26/ | Office | Urology | Lillie Fowler | | | 2019 | Visit | | [address] | | | | | | [address] | | | | | | [place], [place] | | | | | | [address] | | | | | | [phone] | | | | | | | | +--------+---------+ + + + | 03/16/ | Office | Neurology | Theresa, | | | 2018 | Visit | | [address] | | | | | | [address] [place], | | | | | | [place] [address] | | | | | | [phone] | | | | | | | | +--------+---------+ + + + | 04/12/ | Office | Primary Care | Massimo Ramos Pedro Luis | | | 2019 | Visit | | MD [address] | | | | | | [place] | | | | | | [address] | | | | | | | | +--------+---------+ + + + | 10/03/ | Office | Neurology | Fabián Carias MD | | | 2019 | Visit | | [address] | | | | | | [place] | | | | | | [address] | | | | | | | [...] | | | care | | | Firmware Manager-C | | | | | | [...] | | | care | | | Firmware Manager-C | | | | | | [...] | | | care | | | Firmware Manager-C | | | | | | [...] | | | care | | | Firmware Manager-C | | | | | | | linical | + +--------+ +---+-----+ + + + | Note: Pt will | | check CBG's daily x1 | | Pt will take Lantis as | | prescribed | + + documented as of this encounter Visit Diagnoses Not on filedocumented in this encounter"
--- OUTSIDE RECORDS SUMMARY | ~2019-02-17 | XMS | Encounter Summary ---
Demographics + + + | Address | [address] | | | [place] [address] | + + + | Home Phone | | + + + | Preferred Language | Unknown | + + + | Marital Status | | + + + | Sikh Affiliation | 1025 | + + + [...] Team Providers + +------+ + | Care Nature Photographer Name | Role | Phone | + [...] [address] | | | | | [place] [address] | | | | | | [phone] | | | +--------+ + + + [...] [place] | | | | | | [address] | | | | | | [phone] | | | | | | | | +--------+---------+ + + + | 02/26/ | Office | Urology | Lillie Fowler | | | 2018 | Visit | | [address] | | | | | | [address] | | | | | | [place], [place] | | | | | | [address] | | | | | | [phone] | | | | | | | | +--------+---------+ + + + | 03/16/ | Office | Neurology | Theresa, | | | 2018 | Visit | | [address] | | | | | | [address] [place], | | | | | | [place] [address] | | | | | | [phone] | | | | | | | | +--------+---------+ + + + | 04/12/ | Office | Primary Care | Massimo Ramos | | | 2019 | Visit | | MD Fer [address] | | | | | | [place] | | | | | | [address] | | | | | | | | +--------+---------+ + + + | 10/03/ | Office | Neurology | Fabián aCrias MD | | | 2019 | Visit | | [address] | | | | | | [place] | | | | | | [address] | | | | | | | [...] | | | care | | | Store Standards Associate-C | | | | | | [...] | | | care | | | Store Standards Associate-C | | | | | | [...] | | | care | | | Store Standards Associate-C | | | | | | [...] | | | care | | | Store Standards Associate-C | | | | | | [...]
--- OUTSIDE RECORDS SUMMARY | ~2019-02-17 | XMS | Encounter Summary ---
Demographics + + + | Address | [address] | | | [place] [address] | + + + | Home Phone | | + + + | Preferred Language | Unknown | + + + | Marital Status | | + + + | Sabianism Affiliation | 1025 | + + + | Race | Unknown | + + + | Ethnic Group | Unknown | + + + Author + + + | Author | [facility] | | | and [place] | + + + | Organization | [facility] | | | [...] Team Providers + +------+ + | Care Entry Table Operator Name | Role | Phone | [...] | +--------+ + + + + | 02/09/ | Telephone | [facility] | Horacio Silvestre, | Medication Question | | 2018 | | [facility] | [address] [place] | | | | | MEDICAL CLIN[facility] [address] | [facility], [place] | | | | | [address] [place], | [address] | | | | | [place] [address] | [phone] | | | | | [phone] | | | +--------+ + + + [...] 02/25/ | Office | General Surgery | Yenniefr Scott | | | 2018 | Visit | | DO Jalen [address] | | | | | | [address] | | | | | | [place], [place] | | | | | | [address] | | | | | | [phone] | | | | | | | | +--------+---------+ + + + | 02/26/ | Office | Urology | Lillie Fowler | | | 2018 | Visit | | [address] | | | | | | [address] | | | | | | [place], [place] | | | | | | [address] | | | | | | [phone] | | | | | | | | +--------+---------+ + + + | 03/16/ | Office | Neurology | Theresa, | | | 2018 | Visit | | [address] | | | | | | [address] [place], | | | | | | [place] [address] | | | | | | [phone] | | | | | | | | +--------+---------+ + + + | 04/12/ | Office | Primary Care | Massimo Ramos Pedro Luis | | | 2019 | Visit | | MD Fer [address] | | | | | | [place] | | | | | | [address] | | | | | | | | +--------+---------+ + + + | 10/03/ | Office | Neurology | Fabián Carias MD | | | 2019 | Visit | | [address] | | | | | | [place] | | | | | | [address] | | | | | | | [...] | | | care | | | Trimming Assembler-C | | | | | | [...] | | | care | | | Trimming Assembler-C | | | | | | [...] | | | care | | | Trimming Assembler-C | | | | | | [...] | | | care | | | Trimming Assembler-C | | | | | | | linical | + +--------+ +---+-----+ + + + | Note: Pt will | | check CBG's daily x1 | | Pt will take Lantis as | | prescribed | + + documented as of this encounter Visit Diagnoses Not on filedocumented in this encounter"
--- OUTSIDE RECORDS SUMMARY | ~2019-02-17 | XMS | Encounter Summary ---
Demographics + + + | Address | [address] | | | [place] [address] | + + + | Home Phone | | + + + | Preferred Language | Unknown | + + + | Marital Status | | + + + | Tenriism Affiliation | 1025 | + + + | Race | Unknown | + + + | Ethnic Group | Unknown | + + + Author + + + | Author | [facility] | | | and [place] | + + + | Organization | [facility] | | | [...] Team Providers + +------+ + | Care Division Sales Manager Name | Role | Phone | [...] MEDICAL CLIN[facility] [address] | [place] [address] | | | | | [address] [place], | [phone] | | | | | [place] [address] | | | | | | [phone] | | | +--------+ + + + [...] 2:2 2 PM PSTOXYCODONE 5MG SENT To [facility] ADDRESS [address] [place] [address] [place] [id number] 0530 0000 [phone] [...] [place] | | | | | | [address] | | | | | | [phone] | | | | | | | | +--------+---------+ + + + | 02/26/ | Office | Urology | Lillie Fowler | | | 2018 | Visit | | [address] | | | | | | [address] | | | | | | [place], [place] | | | | | | [address] | | | | | | [phone] | | | | | | | | +--------+---------+ + + + | 03/16/ | Office | Neurology | Theresa, | | | 2018 | Visit | | [address] | | | | | | [address] [place], | | | | | | [place] [address] | | | | | | [phone] | | | | | | | | +--------+---------+ + + + | 04/12/ | Office | Primary Care | Massimo Ramos | | | 2019 | Visit | | MD [address] | | | | | | [place] | | | | | | [address] | | | | | | | | +--------+---------+ + + + | 10/03/ | Office | Neurology | Fabián Carias MD | | | 2019 | Visit | | [address] | | | | | | [place] | | | | | | [address] | | | | | | | [...] | | | care | | | Tank Driver-C | | | | | | | [...] | | | care | | | Tank Driver-C | | | | | | | [...] | | | care | | | Tank Driver-C | | | | | | | [...] | | | care | | | Tank Driver-C | | | | | | | linical | + +--------+ +---+-----+ + + + | Note: Pt will | | check CBG's daily x1 | | Pt will take Lantis as | | prescribed | + + documented as of this encounter Visit Diagnoses Not on filedocumented in this encounter"
--- OUTSIDE RECORDS SUMMARY | ~2019-02-17 | XMS | Encounter Summary ---
Demographics + + + | Address | [address] | | | [place] [address] | + + + | Home Phone [...] | Author | [facility] | | | and [place] | + + + | Organization | [facility] | | | and [...] Team Providers + +------+ + | Care Ophthalmology Technician Name | Role | Phone | + +------+ + | Horacio Silvestre DO | PCP | | + +------+ + Reason for Visit + + + | Reason | Comments | + + + | Medication Related | | + + + Encounter Details +--------+ + + + + | Date | Type | Department | Care Team | Description | +--------+ + + + + | 05/28/ | Telephone | [facility] | Theresa, | Medication Related | | 2019 | | [facility] | Rylan, CASE MANAGEMENT ASSOCIATE [address] | | | | | [address] | [facility] [facility], | | | | | [address] [place], | [place] [address] | | | | | [place] [address] | [phone] | | | | | [phone] | | | +--------+ + + + [...] [place] | | | | | | [address] | | | | | | [phone] | | | | | | | | +--------+---------+ + + + | 02/26/ | Office | Urology | Lillie Fowler | | | 2018 | Visit | | [address] | | | | | | [address] | | | | | | [place], [place] | | | | | | [address] | | | | | | [phone] | | | | | | | | +--------+---------+ + + + | 03/16/ | Office | Neurology | Theresa, | | | 2018 | Visit | | [address] | | | | | | [address] [place], | | | | | | [place] [address] | | | | | | [phone] | | | | | | | | +--------+---------+ + + + | 04/12/ | Office | Primary Care | Massimo Ramos | | | 2019 | Visit | | MD [address] | | | | | | [place] | | | | | | [address] | | | | | | | | +--------+---------+ + + + | 10/03/ | Office | Neurology | Fabián Carias MD | | | 2019 | Visit | | [address] | | | | | | [place] | | | | | | [address] | | | | | | | [...] n of | | | Charline [place], | | dehydration | | complex | | | Case | | | | care | | | Sports Complex Attendant-C | | | | | | | [...] | | | care | | | Sports Complex Attendant-C | | | | | | | [...] | | | care | | | Sports Complex Attendant-C | | | | | | | [...] | | | care | | | Sports Complex Attendant-C | | | | | | | linical | + +--------+ +---+-----+ + + + | Note: Pt will | | check CBG's daily x1 | | Pt will take Lantis as | | prescribed | + + documented as of this encounter Visit Diagnoses Not on filedocumented in this encounter"
--- OUTSIDE RECORDS SUMMARY | ~2019-02-17 | XMS | Encounter Summary ---
Demographics + + + | Address | [address] | | | [place] [address] | + + + | Home Phone | | + + + | Preferred Language | Unknown | + + + | Marital Status | | + + + | Yarsanism Affiliation | 1025 | + + + [...] Team Providers + +------+ + | Care Wet Cleaner Machine Name | Role | Phone | + +------+ + | Horacio Silvestre DO | PCP | | + +------+ + Reason for Visit +--------+ + | Reason | Comments | +--------+ + | Hernia | | +--------+ + Evaluate & Treat (Routine) +--------+ + + + + + | Status | Reason | Specialty | Diagnoses / | Referred By | Referred To | | | | | Procedures | Contact | Contact | +--------+ + + + + + | Closed | Specialty | Surgery / | Diagnoses | Reddy, | [facility] | | | Services | General | Abdominal | ALEIDA Nieves | General | | | Required | Surgery | discomfort | [address] | Surgery [address] | | | | | Procedures | [place], | [address] | | | | | ABD PAIN | [place] | [place] | | | | | | [address] | [place], [place] | | | | | | Phone: | [phone] | | | | | | [phone] | Phone: | | | | | | Fax: | [phone] | | | | | | [phone] | Fax: | | | | | | | [phone] | +--------+ + + + + + Encounter Details +--------+---------+ + + + | Date | Type | Department | Care Team | Description | +--------+---------+ + + + | 03/10/ | Office | [facility] | Scott De Oliveira | Lower abdominal pain | | 2017 | Visit | [facility] | DO [address] | (Primary Dx) | | | | SURGERY [address] | [address] | | | | | [address] [place], | [facility] [place] | | | | | [place] [address] | [address] | | | | | [phone] | [phone] | | | | | | | [...] + + + | Blood Pressure | 128/78 | 03/10/2017 1:36 PM | | | | | PST | | + + + + + | Pulse | 75 | 03/10/2017 1:36 PM | | | | | PST | | + + + + + | Temperature | - | - | | + + + + + | Respiratory Rate | 16 | 03/10/2017 1:36 PM | | | | | PST | | + + + + + | Oxygen Saturation | 96% | 03/10/2017 1:36 PM | | | | | PST | | + + + + + | Inhaled Oxygen | - | - | | | Concentration | | | | + + + + + | Weight | 90.7 kg (200 lb) | 03/10/2017 1:36 PM | | | | | PST | | + + + + + | Height | 167.6 cm (5' 6") | 03/10/2017 1:36 PM | | | | | PST | | + + + + + | Body Mass Index | 32.28 | 03/10/2017 1:36 PM | | | | | PST | | + + + + + documented in this encounter Progress Notes Scott De Oliveira, DO - 03/10/2017 2:30 PM PSTFormatting of this note might be diffe rent from the original. History & Physical HISTORY OF PRESENT ILLNESS Geraldo Mcfadden is a 76 y.o. male referred to me by Lizbeth Reddy to discuss abdominal pain. This goes well known to me. In summary, I performed a Azul procedure for perforated di verticulitis. This was then taken down. He developed a postoperative ventral incisional he rnia that was surgically repaired. Last year he reports gaining 35-40 pounds and is sociall y developed a transverse low on his abdominal wall does become bothersome to him. He states he can button his pants. He rates the pain as 4 out of 10 constant and sharp. It is worse when in contact with clothing and better with no contact. At home he wear sweat pants. If he puts his pants below this fold, he states that they will stay up. He is interested in m y opinion on excising this. PAST MEDICAL HISTORY Past Medical History: Diagnosis Date Carpal tunnel syndrome, bilateral 05/31/2013 DDD (degenerative disc disease), cervical 05/22/2013 GERD (gastroesophageal reflux disease) Gout Hiatal hernia Hypertension Neck pain, chronic 05/22/2013 Neuropathy (HCC) Paresthesias - both hands 05/22/2013 Thyroid disease PAST SURGICAL HISTORY Past Surgical History: Procedure Laterality Date APPENDECTOMY MEDICATIONS Current Outpatient Prescriptions Medication Sig Dispense Refill [...] No current facility-administered medications for this visit. ALLERGIES Allergies Allergen Reactions Zolpidem Anaphylaxis SOCIAL HISTORY Social History Social History Marital status: Unknown Spouse name: N/A Number of children: N/A Years of education: N/A Occupational History Not on file. Social History Main Topics Smoking status: Former Smoker Smokeless tobacco: Never Used Alcohol use No Drug use: No Sexual activity: Not on file Other Topics Concern Not on file Social History Narrative No narrative on file FAMILY HISTORY Family History Problem Relation Age of Onset Diabetes Mother Heart disease Father Arthritis Maternal Grandfather Heart disease Maternal Grandfather Other (see comment) Paternal Grandmother Dementia REVIEW OF SYSTEMS CONSTITUTIONAL Denies recent unintentional weight loss. NEUROLOGIC Denies ever having had a stroke or seizure. CARDIOVASCULAR Denies ever having had a previous OK, DVT, or PE. PULMONARY Denies the use of a CPAP or supplemental oxygen. GASTROINTESTINAL He did have hepatitis in the [place]. INTEGUMENTARY Denies tattoos. HEMATOLOGIC Denies bleeding tendencies and has never had a blood transfusion. PHYSICAL EXAM BP: 128/78 Pulse: 75 Resp: 16 SpO2: 96 % Body mass index is 32.28 kg/m. CONSTITUTIONAL Initial impression is that the patient appears of stated age and is in no acute distress. PSYCHIATRIC Patient has an appropriate mood and affect. NEUROLOGIC Extraocular muscles are intact and patient moves all four extremities. There are no appar ent focal deficits. HEENT Mucus membranes are moist. There is no thyromegaly or masses. Sclera are non-icteric. CARDIOVASCULAR Heart is regular rate and rhythm. There are no murmurs, rubs, or gallops. There is no pr etibial edema. PULMONARY Lungs are clear to auscultation bilaterally without wheeze, rales, or ronchi. There are n o retractions. ABDOMEN Soft, nondistended, and nontender.There is a transverse roll subcutaneous tissue just belo w the belt line and above the mons pubis. The dermis is unremarkable. There is no evidence of skin breakdown. BREAST Deferred. GENITOURINARY Deferred. INTEGUMENTARY Warm and dry. PERTINENT STUDIES None ASSESSMENT Subcutaneous fat PLAN I would not recommend excising this. The assumption that this would bring relief to his di scomfort is not well founded. Additionally, he may be able to hold his pants up if I remove this. I recommended wearing suspenders or overalls. I also recommended weight loss prior to embarking upon any surgical interventions. Mr. Mcfadden is otherwise stable for follow up wi th wv when necessary. Electronically signed by: Scott De Oliveira DO 03/10/2017 14:03 This note was transcribed using voice recognition software; there may be speech recognition errors which escaped detection during perforating. documented in this encounter Plan of Treatment [...] [place] | | | | | | [address] | | | | | | [phone] | | | | | | | | +--------+---------+ + + + | 02/26/ | Office | Urology | Lillie Fowler | | | 2018 | Visit | | LILLIE Lopez [address] | | | | | | [address] | | | | | | [place], [place] | | | | | | [address] | | | | | | [phone] | | | | | | | | +--------+---------+ + + + | 03/16/ | Office | Neurology | Theresa, | | | 2018 | Visit | | SHONDA M[address] | | | | | [address] [place], | | | | | | [place] [address] | | | | | | [phone] | | | | | | | | +--------+---------+ + + + | 04/12/ | Office | Primary Care | Massimo Ramos Pedro Luis | | | 2019 | Visit | | MD Fer [address] | | | | | | [place] | | | | | | [address] | | | | | | | | +--------+---------+ + + + | 10/03/ | Office | Neurology | Fabián Carias MD | | | 2019 | Visit | | [address] | | | | | | [place] | | | | | | [address] | | | | | | | | +--------+---------+ + + + + + +--------+ + + | Name | Type | Priori | Associated Diagnoses | Order Schedule | | | | ty | | | + + +--------+ + + | [facility] | Outpatient | Routin | Abdominal | Ordered: 02/19/2017 | | [facility] Surgery | Referral | e | discomfort | | | - AMB Referral | | | | | [...] | | | care | | | Director Weights And Measures-C | | | | | | | [...] | | | care | | | Director Weights And Measures-C | | | | | | | [...] | | | care | | | Director Weights And Measures-C | | | | | | | [...] | | | care | | | Director Weights And Measures-C | | | | | | | linical | + +--------+ +---+-----+ + + + | Note: Pt will | | check CBG's daily x1 | | Pt will take Lantis as | | prescribed | + + documented as of this encounter Visit Diagnoses + + | Diagnosis | + + | Lower abdominal pain - Primary Abdominal pain, other specified site | + + documented in this encounter
--- OUTSIDE RECORDS SUMMARY | ~2019-02-17 | XMS | Encounter Summary ---
Demographics + + + | Address | [address] | | | [place] [address] | + + + | Home Phone | | + + + | Preferred Language | Unknown | + + + | Marital Status | | + + + | Anglican Affiliation | 1025 | + + + [...] Team Providers + +------+ + | Care Personal Health Coach Name | Role | Phone | + +------+ + | Ryan Gutiérrez MD | PCP | | + +------+ + Encounter Details +--------+ + + + + | Date | Type | Department | Care Team | Description | +--------+ + + + + | 01/07/ | Hospital | [facility] | Horacio Silvestre, | | | 2017 | Encounter | [facility] | DO [address] [place] | | | | | [facility] [address] | [place], [place] | | | | [address] [place], | [address] | | | | | [place] [address] | [phone] | | | | | [phone] | | | +--------+ + + + [...] [place] | | | | | | [address] | | | | | | [phone] | | | | | | | | +--------+---------+ + + + | 02/26/ | Office | Urology | Lillie Fowler | | | 2018 | Visit | | LILLIE Lopez [address] | | | | | | [address] | | | | | | [place], [place] | | | | | | [address] | | | | | | [phone] | | | | | | | | +--------+---------+ + + + | 03/16/ | Office | Neurology | Theresa, | | | 2018 | Visit | | SH[address]DA [address] | | | | | [address] [place], | | | | | | [place] [address] | | | | | | [phone] | | | | | | | | +--------+---------+ + + + | 04/12/ | Office | Primary Care | Massimo Ramos | | | 2019 | Visit | | MD [address] | | | | | | [place] | | | | | | [address] | | | | | | | | +--------+---------+ + + + | 10/03/ | Office | Neurology | Fabián Carias MD | | | 2019 | Visit | | [address] | | | | | | [place] | | | | | | [address] | | | | | | | [...] | | | care | | | Core Winding Operator-C | | | | | | [...] | | | care | | | Core Winding Operator-C | | | | | | [...] | | | care | | | Core Winding Operator-C | | | | | | [...] | | | care | | | Core Winding Operator-C | | | | | | | linical | + +--------+ +---+-----+ + + + | Note: Pt will | | check CBG's daily x1 | | Pt will take Lantis as | | prescribed | + + documented as of this encounter Visit Diagnoses Not on filedocumented in this encounter"
--- OUTSIDE RECORDS SUMMARY | ~2019-02-17 | XMS | Encounter Summary ---
Demographics + + + | Address | [address] | | | [place] [address] | + + + | Home Phone | | + + + | Preferred Language | Unknown | + + + | Marital Status | | + + + | Episcopalian Affiliation | 1025 | + + + [...] Team Providers + +------+ + | Care Lockstitch Sleeve Setter Name | Role | Phone | + +------+ + | Ryan Gutiérrez MD | PCP | | + +------+ + Encounter Details +--------+ + + + + | Date | Type | Department | Care Team | Description | +--------+ + + + + | 09/19/ | [facility] | Scott De Oliveira | | | 2016 | Encounter | [facility] | DO [address] | | | | | OSTOMY [address] | [address] | | | | | [address] [place], | [facility], [place] | | | | | [place] [address] | [address] | | | | | [phone] | [phone] | | | | | | | [...] [place] | | | | | | [address] | | | | | | [phone] | | | | | | | | +--------+---------+ + + + | 02/26/ | Office | Urology | Lillie Fowler | | | 2018 | Visit | | LILLIE Lopez [address] | | | | | | [address] | | | | | | [place] | | | | | | [address] | | | | | | [phone] | | | | | | | | +--------+---------+ + + + | 03/16/ | Office | Neurology | Theresa, | | | 2018 | Visit | | [address] | | | | | [address] [place], | | | | | | [place] [address] | | | | | | [phone] | | | | | | | | +--------+---------+ + + + | 04/12/ | Office | Primary Care | Massimo Ramos | | | 2019 | Visit | | MD Fer [address] | | | | | | [place] | | | | | | [address] | | | | | | | | +--------+---------+ + + + | 10/03/ | Office | Neurology | Fabián Carias MD | | | 2019 | Visit | | [address] | | | | | | [place] | | | | | | [address] | | | | | | | [...] | | | care | | | Dietetics Teacher-C | | | | | | | [...] | | | care | | | Dietetics Teacher-C | | | | | | | [...] | | | care | | | Dietetics Teacher-C | | | | | | | [...] | | | care | | | Dietetics Teacher-C | | | | | | | linical | + +--------+ +---+-----+ + + + | Note: Pt will | | check CBG's daily x1 | | Pt will take Lantis as | | prescribed | + + documented as of this encounter Visit Diagnoses Not on filedocumented in this encounter"
--- OUTSIDE RECORDS SUMMARY | ~2019-02-17 | XMS | Encounter Summary ---
Demographics + + + | Address | [address] | | | [place] [address] | + + + | Home Phone [...] Team Providers + +------+ + | Care Neck Cutter Name | Role | Phone | + +------+ + | Horacio Silvestre DO | PCP | | + +------+ + Reason for Visit + + + | Reason | Comments | + + + | Leg Swelling | | + + + Encounter Details +--------+ + + + + | Date | Type | Department | Care Team | Description | +--------+ + + + + | 09/30/ | Emergency | [facility] | Luciano Diana | Mediastinal | | 2018 | | [facility] | MD [address] | adenopathy (Primary | | | | [facility] [address] | [address] | Dx); Weakness | | | | DR [place], [place] | [place] [address] | generalized | | | | [address] | [phone] | | | | | [phone] | | | +--------+ + + + [...] + + + | Blood Pressure | 124/72 | 09/30/2018 5:01 PM | | | | | PDT | | + + + + + | Pulse | 55 | 09/30/2018 5:01 PM | | | | | PDT | | + + + + + | Temperature | 37 C (98.6 F) | 09/30/2018 1:51 PM | | | | | PDT | | + + + + + | Respiratory Rate | 23 | 09/30/2018 5:01 PM | | | | | PDT | | + + + + + | Oxygen Saturation | 90% | 09/30/2018 5:01 PM | | | | | PDT | | + + + + + | Inhaled Oxygen | - | - | | | Concentration | | | | + + + + + | Weight | 85.7 kg (189 lb) | 09/30/2018 1:51 PM | | | | | PDT | | + + + + + | Height | 167.6 cm (5' 6") | 09/30/2018 1:51 PM | | | | | PDT | | + + + + + | Body Mass Index | 30.51 | 09/30/2018 1:51 PM | | | | | PDT [...] as of this encounter Discharge Instructions Instructions Page, Luciano Mann MD - 09/30/2018Expect a call from the oncology, (cancer) clinic for an appointment within the next 3-5 days. documented in this encounter Medications at Time [...] amLODIPine | Take 1 tablet by | 90 | 3 | 09/29/19 | | | (NORVASC) 10 MG | mouth every morning. | tablet | [...] +---------+ + + | cholecalciferol | Take 2 tablets by | 180 | 3 | 09/29/19 | | | (VITAMIN D-3) 1000 | mouth every morning. | tablet | | 19 | 9 | | units TABS | [...] capsule by | 90 | 3 | 09/23/19 | | | (CYMBALTA) [address] | mouth every morning. | capsule | | 19 | 9 | | capsule | | | | | | + + + +---------+ + + | finasteride | Take 1 tablet by | 30 | 2 | 09/02/19 | | | (PROPECIA) 1 MG | mouth Daily. | tablet | | 19 | 9 | | tabletIndications: | | | | | | | Benign prostatic | | | | | | | hyperplasia with | | | | | | | incomplete bladder | | | | | | | emptying | | | | | | + + + +---------+ + + | furosemide (LASIX) | Take 1 tablet by | 30 | 0 | 09/25/19 | | | 20 mg | mouth Daily. | tablet | | 19 | 9 | | tabletIndications: | | | | | | | Cough, Bilateral | | | | | | | lower extremity | | | | | | | edema | | | | | | + + + +---------+ + + | | Take 1 tablet by | 90 | 3 | 08/28/19 | | | hydroCHLOROthiazide | mouth every morning. | tablet | | 19 | 9 | | 25 mg tablet | | | | | | + + + +---------+ + + | insulin glargine | Inject 35 Units | | 0 | | | | (LANTUS) 100 | under the skin | | | | 9 | | units/mL injection | nightly. | | | | | | (vial) | | | | | | + + + +---------+ + + | levothyroxine | Take 1 tablet by | 90 | 3 | 09/23/19 | | | (SYNTHROID) 75 MCG | mouth every morning | tablet | | 19 | 9 | | tablet | (before breakfast). | [...] tablet by | 90 | 3 | 08/28/19 | | | 50 mg tablet | [...] capsule by | 90 | 3 | 08/28/19 | | | (PRILOSEC) 20 mg | mouth every morning | capsule | | 19 | 9 | | capsule | (before breakfast). | | | | | + + + +---------+ + + | pregabalin | Take 1 capsule by | 180 | 1 | 09/10/19 | | | (LYRICA) 300 MG | mouth 2 times daily. | capsule | | 19 | 9 | | capsuleIndications: | | | | [...] | | | | | | | ([facility]), Multilevel | 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 | | | | | | + + + +---------+ + + | tamsulosin | Take 1 capsule by | 90 | 3 | 09/26/19 | | | (FLOMAX) 0.4 mg | mouth nightly. | capsule | | 19 | 9 | | CAPSIndications: | | | | | | | Benign prostatic | | | | | | | hyperplasia without | | | | | | | lower urinary tract | | | | | | | symptoms | | | | | | + + + +---------+ + + | testosterone | Place 1 patch onto | 90 | 1 | 08/28/19 | | | (ANDRODERM) 2 mg/24 | the skin nightly. 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 | tablet | | 19 | 9 | | tabletIndications: | | | | | | | Insomnia secondary | | | | | | | to chronic pain | | | | | | + + + +---------+ + + | urea (CARMOL) 40 % | Apply 1 Application | | 0 | | | | CREA | topically Daily as | | | | 9 | | | needed for Dry Skin. | | | | | + + [...] [place] | | | | | | [address] | | | | | | [phone] | | | | | | | | +--------+---------+ + + + | 02/26/ | Office | Urology | Lillie Fowler | | | 2018 | Visit | | LILLIE Lopez [address] | | | | | | [address] | | | | | | [place], [place] | | | | | | [address] | | | | | | [phone] | | | | | | | | +--------+---------+ + + + | 03/16/ | Office | Neurology | Theresa, | | | 2018 | Visit | | SHONDA Mckinney [address] | | | | [address] [place], | | | | | | [place] [address] | | | | | | [phone] | | | | | | | [...] [place] | | | | | | [address] | | | | | | | | +--------+---------+ + + + + +------+--------+ + + | Name | Type | Priori | Associated Diagnoses | Date/Time | | | | ty | | | + +------+--------+ + + | ED INFORMATION | BRIT | Routin | | 09/30/2018 1:38 PM | | EXCHANGE | | e | [...] | | care | | | Director Of Athletics-C | | | | | | | [...] | | care | | | Director Of Athletics-C | | | | | | | [...] | | care | | | Director Of Athletics-C | | | | | | | [...] | | care | | | Director Of Athletics-C | | | | | | | [...] + +--------+ + + + | CT ANGIOGRAM | STAT | 09/30/2018 | | Results for this | | PULMONARY | | 4:53 PM | | procedure are in the | | | | PDT | | results section. | + +--------+ + + + | URINALYSIS WITH | STAT | 09/30/2018 | | Results for this | | MICROSCOPIC WITH | | 4:22 PM | | procedure are in the | | CULTURE IF INDICATED | | PDT | | results section. | + +--------+ + + + | CULTURE, URINE | Routin | 09/30/2018 | | Results for this | | | e | 4:22 PM | | procedure are in the | | | | PDT | | results section. | + +--------+ + + + | XR CHEST AP PORTABLE | STAT | 09/30/2018 | | Results for this | | | | 2:50 PM | | procedure are in the | | | | PDT | | results section. | + +--------+ + + + | SLIDE REVIEW, | Routin | 09/30/2018 | | Results for this | | PERIPHERAL SMEAR | e | 2:43 PM | | procedure are in the | | | | PDT | | results section. | + +--------+ + + + | TROPONIN I | STAT | 09/30/2018 | | Results for this | | | | 2:43 PM | | procedure are in the | | | | PDT | | results section. | + +--------+ + + + | CBC WITH | STAT | 09/30/2018 | | Results for this | | DIFFERENTIAL | | 2:43 PM | | procedure are in the | | | | PDT | | results section. | + +--------+ + + + | B TYPE NATRIURETIC | STAT | 09/30/2018 | | Results for this | | PEPTIDE | | 2:43 PM | | procedure are in the | | | | PDT | | results section. | + +--------+ + + + | LIPASE | STAT | 09/30/2018 | | Results for this | | | | 2:43 PM | | procedure are in the | | | | PDT | | results section. | + +--------+ + + + | COMPREHENSIVE | STAT | 09/30/2018 | | Results for this | | METABOLIC PANEL | | 2:43 PM | | procedure are in the | | | | PDT | | results section. | + +--------+ + + + | ECG 12 LEAD | STAT | 09/30/2018 | | Results for this | | | | 2:36 PM | | procedure are in the | | | | PDT | | results section. | + +--------+ + + + documented in this encounter Results CT Angiogram Pulmonary (09/30/2018 4:53 PM PDT) + + | Specimen | + + | | + + + + + | Impressions | Performed At | + + + | IMPRESSION: 1. No pulmonary embolus, or lobar pneumonia. No | [facility] | | distinct interstitial edema. 2. Interval development of hilar and | | | mediastinal adenopathy concerning for malignancy. Differential | | | includes lymphoma. 3. Interval development 2 lung nodules suspicious | | | for malignancy at the left lower lobe. Differential includes | | | lymphoma, metastatic disease, and primary lung cancer. 4. | | | Atherosclerosis coronary arteries. 5. No no adenopathy at the | | | visualized upper abdomen, or axilla. 6. The bones appear diffusely | | | demineralized. Dictated by: Troy Lawrence Electronically | | | Signed by: Troy Lawrence on 09/30/2018 5:10 PM | | + + + + + + | Narrative | Performed At | + + + | EXAMINATION: CT ANGIOGRAM PULMONARY HISTORY: LEG SWELLING | [facility] | | COMPARISON STUDY: CT chest 03/16/2018. CT chest 12/25/2016. | | | TECHNIQUE: 5 mm axial slices were acquired through the lungs during | | | an arterial phase of contrast. Multiplanar MIP reconstructions were | | | performed. There was no post contrast reaction. DOSE REPORT: | | | CTDIvol: 4.4 - 22.2 mGy. DLP: 633 mGy-cm. Automated exposure control | | | was utilized. FINDINGS: The bolus of contrast is adequate. No | | | pulmonary artery filling defect. Interval development of prominent | | | mediastinal and hilar adenopathy compared to the 03/16/2018 CT chest. | | | Largest lymph node present in the subcarinal region with short axis | | | diameter of 2.5 cm. Heart size within normal limits. | | | Atherosclerosis coronary arteries. Minimal pericardial effusion. | | | No distinct interlobular septal thickening. Peripheral subpleural | | | reticular opacities are redemonstrated which appear similar with | | | somewhat apical basilar gradient. Mild bronchiectasis right lower | | | lobe and left lower lobe. At the left lower lobe on image 102 a | | | spiculated noncalcified 15 mm nodule is present. This finding was | | | not evident on the 2018 study. At the lateral basal left lower | | | lobe a a juxtapleural noncalcified 7 mm nodule is noted. This | | | finding was not present previously. Below the diaphragm no | | | visualized adenopathy. Unremarkable appearing mesenteric and | | | retroperitoneal lymph nodes present. Reflux of contrast material | | | within the inferior vena cava is present. No axillary adenopathy. | | | No acute bone finding. No lytic or blastic bone lesions. The | | | bones appear diffusely demineralized. | | + + + + + | Procedure Note | + + | Osito, Rad Results In - 09/30/2018 5:14 PM PDT EXAMINATION:CT ANGIOGRAM | | PULMONARYHISTORY:LEG SWELLINGCOMPARISON STUDY:CT chest 03/16/2018. CT chest | | 12/25/2016.TECHNIQUE:5 mm axial slices were acquired through the lungs during an | | arterial phase of contrast. Multiplanar MIP reconstructions were performed. There was | | no post contrast reaction.DOSE REPORT:CTDIvol: 4.4 - 22.2 mGy. DLP: 633 mGy-cm. | | Automated exposure control was utilized.FINDINGS:The bolus of contrast is adequate.No | | pulmonary artery filling defect.Interval development of prominent mediastinal and hilar | | adenopathy compared to the 03/16/2018 CT chest. Largest lymph node present in the | | subcarinal region with short axis diameter of 2.5 cm.Heart size within normal limits. | | Atherosclerosis coronary arteries. Minimal pericardial effusion.No distinct | | interlobular septal thickening. Peripheral subpleural reticular opacities are | | redemonstrated which appear similar with somewhat apical basilar gradient. Mild | | bronchiectasis right lower lobe and left lower lobe.At the left lower lobe on image 102 | | a spiculated noncalcified 15 mm nodule is present. This finding was not evident on the | | 2017 study.At the lateral basal left lower lobe a a juxtapleural noncalcified 7 mm | | nodule is noted. This finding was not present previously.Below the diaphragm no | | visualized adenopathy. Unremarkable appearing mesenteric and retroperitoneal lymph | | nodes present. Reflux of contrast material within the inferior vena cava is present.No | | axillary adenopathy. No acute bone finding. No lytic or blastic bone lesions.The bones | | appear diffusely demineralized.IMPRESSION: IMPRESSION:1. No pulmonary embolus, or lobar | | pneumonia. No distinct interstitial edema.2. Interval development of hilar and | | mediastinal adenopathy concerning for malignancy. Differential includes lymphoma.3. | | Interval development 2 lung nodules suspicious for malignancy at the left lower lobe. | | Differential includes lymphoma, metastatic disease, and primary lung cancer.4. | | Atherosclerosis coronary arteries.5. No no adenopathy at the visualized upper abdomen, | | or axilla.6. The bones appear diffusely demineralized.Dictated by: Troy | | Howard | |At the lateral basal left lower lobe a a juxtapleural noncalcified 7 mm nodule is noted. T his finding was not present previously. | | | |Below the diaphragm no visualized adenopathy. Unremarkable appearing mesenteric and retrop eritoneal lymph nodes present. Reflux of contrast material within the inferior vena cava is present. | | | |No axillary adenopathy. No acute bone finding. No lytic or blastic bone lesions. | |The bones appear diffusely demineralized. | | | | | |IMPRESSION: | |IMPRESSION: | |1. No pulmonary embolus, or lobar pneumonia. No distinct interstitial edema. | |2. Interval development of hilar and mediastinal adenopathy concerning for malignancy. Dif ferential includes lymphoma. | |3. Interval development 2 lung nodules suspicious for malignancy at the left lower lobe. D ifferential includes lymphoma, metastatic disease, and primary lung cancer. | |4. Atherosclerosis coronary arteries. | |5. No no adenopathy at the visualized upper abdomen, or axilla. | |6. The bones appear diffusely demineralized. | | | |Dictated by: Troy Lawrence | | | | | + + + +---------+ + + | Performing | Address | City/State/Zipcode | Phone Number | | Organization | | | | + +---------+ + + | [facility] | | | | + +---------+ + + Culture, Urine (09/30/2018 4:22 PM PDT) + + + + + + | Component | Value | Ref Range | Performed | Pathologist | | | | | At | Signature | + + + + + + | Culture | 30,000 - 40,000 CFU/ml | | [facility] | | | | Mixed jonah (multiple | | [facility] | | | | morphologies | | [facility] | | | | present)Comment: | | LABORATORY | | | | Suggests contamination | | | | | | with urogenital or skin | | | | | | jonah. | | | | + + + [...] + + | [facility] | [address] | [place] [address] | [phone] | | [facility] | | | | + + + + + Urinalysis with Microscopic with Culture if Indicated (09/30/2018 4:22 PM PDT) + + + + + [...] - 1.030 | [place] | | | Merrick | | | [facility] | | | [...] + + + + | Ketones, | 5 mg/dL (A) | Negative | [facility] | [...] + + + | Leukocyte | 500 jony/uL (A) | Negative | [facility] | | | Esterase, | | | [facility] | | | Urine | | | HOSPITAL | | | | | | LAB[facility]ATORY | | + + + + + + | Urobilinoge | 4 mg/dL (A) | 0-1.0 mg/dL | [facility] | | | n, Urine | | | [facility] | | | | | | [facility] | | | | | | LAB[facility]ATORY | | + + + + + + | WBC UA | 50 - 100 (A) | <=5 /HPF | [facility] | | [...] + + + + | SQUAMOUS | Moderate (A) | None Seen /LPF | [facility] [...] + + | URINE | Urine Culture Set Up | | [facility] | | | COMMENT | | | [facility] | | | [...] + + | [facility] | [address] | [place] [address] | [phone] | | [facility] | | | | + + + + + XR Chest AP Portable (09/30/2018 2:50 PM PDT) + + | Specimen | + + | | + + + + + | Impressions | Performed At | + + + | IMPRESSION: 1. No definite acute finding. 2. Atherosclerosis | [facility] | | coronary arteries. 3. Prominence of the right donya which may relate | | | to the overlap of normal anatomy. Potentially hilar adenopathy could | | | result in similar appearance. Follow-up to demonstrate resolution | | | recommended. Dictated by: Troy Lawrence Electronically | | | Signed by: Troy Lawrence on 09/30/2018 2:57 PM | | + + + + + + | Narrative | Performed At | + + + | EXAMINATION: XR CHEST AP PORTABLE HISTORY: LEG SWELLING | [facility] | | COMPARISON STUDY: Chest radiograph 09/24/2018. Chest radiograph | | | 08/23/2018. CT chest 05/27/2018. FINDINGS: Prominence of the | | | infrahilar region on the right noted which appears similar to the | | | 09/24/2018 study. The finding is in apparent on the 08/23/2017 | | | study. No adenopathy or mass was seen in this region on the prior CT | | | study. Heart size normal. Atherosclerosis coronary arteries | | | present best appreciated on prior CT study. No distinct Laquita B | | | line formation. No pleural effusion or lobar consolidation. . | | + + + + + | Procedure Note | + + | Osito, Rad Results In - 09/30/2018 3:01 PM PDT EXAMINATION:XR CHEST AP | | PORTABLEHISTORY:LEG SWELLINGCOMPARISON STUDY:Chest radiograph 09/24/2018. Chest | | radiograph 08/23/2018. CT chest 05/27/2018.FINDINGS:Prominence of the infrahilar region | | on the right noted which appears similar to the 09/24/2018 study. The finding is in | | apparent on the 08/23/2017 study. No adenopathy or mass was seen in this region on the | | prior CT study.Heart size normal. Atherosclerosis coronary arteries present best | | appreciated on prior CT study.No distinct Laquita B line formation. No pleural effusion | | or lobar consolidation. .IMPRESSION: IMPRESSION:1. No definite acute finding.2. | | Atherosclerosis coronary arteries.3. Prominence of the right donya which may relate to | | the overlap of normal anatomy. Potentially hilar adenopathy could result in similar | | appearance. Follow-up to demonstrate resolution recommended.Dictated by: Troy | | Howard | |Heart size normal. Atherosclerosis coronary arteries present best appreciated on prior CT study. | | | |No distinct Laquita B line formation. No pleural effusion or lobar consolidation. . | | | |IMPRESSION: | |IMPRESSION: | |1. No definite acute finding. | |2. Atherosclerosis coronary arteries. | |3. Prominence of the right donya which may relate to the overlap of normal anatomy. Potenti ally hilar adenopathy could result in similar appearance. Follow-up to demonstrate resoluti on recommended. | | | | | |Dictated by: Troy Lawrence | | | | | + + + +---------+ + + | Performing | Address | City/State/Zipcode | Phone Number | | Organization | | | | + +---------+ + + | [facility] | | | | + +---------+ + + Slide Review, Peripheral Smear (09/30/2018 2:43 PM PDT) + + + + + [...] + + + + + + | Giant | Present (A) | Not Present | [facility] | | | Platelets | | | [facility] | | | | | [facility] | | | | | | LAB[facility]ATORY | | + + + + + + + + | Specimen | + + | Blood | + + + + + | Narrative | Performed At | + + + | No platelet clumps seen on smear review. | [facility] | | [facility] | | | [facility] | + + + + + + + + | Performing | Address | City/State/Zipcode | Phone Number | | Organization | | | | + + + + + | [facility] | [address] | [place] [address] | [phone] | | [facility] | | | | + + + + + B Type Natriuretic Peptide (09/30/2018 2:43 PM PDT) + +-------+ + + + | Component | Value | Ref Range | Performed | Pathologist | | | | | At | Signature | + +-------+ + + + | NT-proBNP | 297 | <=450 pg/mL | [facility] | | | | | [...] + + | [facility] | [address] | [place] [address] | [phone] | | [facility] | | | | + + + + + Troponin I (09/30/2018 2:43 PM PDT) + +-------+ + + + [...] | cutoff point for the diagnosis of MA is 0.8 ng/mL for the Troponin I | | | method. | | + + + + + + + + | Performing | Address | City/State/Zipcode | Phone Number | | Organization | | | | + + + + + | [facility] | [address] | [place] [address] | [phone] | | [facility] | | | | + + + + + Lipase (09/30/2018 2:43 PM PDT) + +-------+ + + + | Component | Value | Ref Range | Performed | Pathologist | | | | | At | Signature | + +-------+ + + + | Lipase | 199 | 73 - 393 U/L | [facility] | | | | [...] + + | [facility] | [address] | [place] [address] | [phone] | | [facility] | | | | + + + + + Comprehensive Metabolic Panel (09/30/2018 2:43 PM PDT) + + + + + + | Component | Value | Ref Range | Performed | Pathologist | | | | | At | Signature | + + + + + + | Na | 138 | 132 - 143 | [facility] | | | | | mmol/L | [facility] | | | | | [facility] | | | | | | [facility] | | + + + + + + | K | 3.8 | 3.3 - 4.9 | [facility] | | | | | mmol/L | [facility] | | | | | | [facility] | | | | | | LAB[facility] | | + + + + + + | Cl | 103 | 95 - 108 mmol/L | [facility] | | | | | | [facility] | | | | | | [facility] | | + + + + + + | CO2 | 26 | 23 - 34 mmol/L | [facility] | | | | | | [facility] | | | | | | [facility] | | + + + + + + | Anion Gap | 9 | 7 - 16 mmol/L | [facility] | | | | | | [facility] | [facility] | | | | | | [facility] | | + + + + + + | Glucose | 161 (H) | 70 - 110 mg/dL | [...] + + + + | Creatinine | 1.20 | 0.70 - 1.40 | [facility] | | | | | mg/dL | [facility] | | | | | | [facility] | | | | | | [facility] | | + + + + + + | eGFR if not | 58 (L)Comment: | >=60 | [facility] | | | | GLOMERULAR FILTRATION | mL/min/1.73m2 | [facility] | | | [facility]IM[facility] | | [facility] | | | | mL/min/1.62e5Ygyd than | | LAB[facility]ATORY | | | [...] + + + + | Calcium | 8.9 | 8.3 - 10.0 | [facility] | | | | | mg/dL | [facility] | [facility] | | [facility] | | | | | | [facility] | | + + + + + + | Albumin | 3.2 | 3.0 - 4.5 g/dL | [facility] | | | | | | [facility] | | | | [facility] | | | | | | [facility] | | + + + + + + | Bilirubin | 1.1 | 0.0 - 1.2 mg/dL | [facility] | | | Total | | | [facility] | | | | | [facility] | | | | | | [facility] | | + + + + + + | Total | 7.1 | 6.6 - 8.5 g/dL | [facility] | | | Protein | | | [facility] | | | | | | [facility] | | | | | | LAB[facility] | | + + + + + + | AST | 22 | 0 - 38 U/L | [facility] | | | | | | [facility] | [facility] | | | | | | [facility] | | + + + + + + | ALT | 21 | 16 - 63 U/L | [facility] | | | | | | [facility] | | | | | | [facility] | | + + + + + + | Alkaline | 104 | 46 - 116 U/L | [facility] | | | Phosphatase | | | [facility] | | | | | [facility] | | | | | | [facility] | | + + + + + + | Globulin | 3.9 | 2.4 - 4.5 g/dL | [facility] | | | | | | [facility] | | | | [facility] | | | | | | [facility] | | + + + + + + | Albumin/Lizbeth | 0.8 | 0.8 - 2.0 | [facility] | | | bulin Ratio | | | [facility] | | | | | [facility] | | | | | | [facility] | | + + + + + + | BUN/Creatin | 12.5 | 7.0 - 24.0 | [facility] | [...] + + | [facility] | [address] | [place] [address] | [phone] | | [facility] | | | | + + + + + CBC with Differential (09/30/2018 2:43 PM PDT) + + + + + + | Component | Value | Ref Range | Performed | Pathologist | | | | | At | Signature | + + + + + + | WBC | 12.3 (H) | 4.6 - 10.5 K/uL | [facility] | | | | | | [facility] | | | | | | [facility] | | + + + + + + | RBC | 4.00 (L) | 4.36 - 5.83 | [facility] | | | | | M/uL | [facility] | | | | | | [facility] | | + + + + + + | Hemoglobin | 11.8 (L) | 13.1 - 17.4 | [facility] | | | | | g/dL | [facility] | | | | | | [facility] | | + + + + + + | Hematocrit | 37.2 (L) | 39.0 - 51.9 % | [facility] | | | | | [facility] | | | | | | [facility] | | + + + + + + | MCV | 93.0 | 82.0 - 96.0 fL | [facility] | | | | | [facility] | | | | | | [facility] | | + + + + + + | MCH | 29.5 | 27.7 - 32.3 pg | [facility] | | | | | [facility] | | | | | | [facility] | | + + + + + + | MCHC | 31.7 (L) | 32.0 - 36.9 | [facility] | | | | | g/dL | [facility] | | | | | | [facility] | | + + + + + + | RDW-CV | 20.0 (H) | 0.0 - 17.0 % | [facility] | | | | | [facility] | | | | | | [facility] | | + + + + + + | Platelet | 95 (L) | 150 - 450 K/uL | [facility] | | | Count | | | [facility] | | | | | | [facility] | | + + + + + + | MPV | Comment: Unable to | 9.4 - 12.4 fL | [facility] | | | | report | | [facility] | [facility] | [facility] | | | | | | [facility] | | + + + + + + | % | 74.6 | 42.0 - 76.0 % | [facility] | | | Neutrophils | | | [facility] | [facility] | [facility] | | | | | | [facility] | | + + + + + + | % | 6.2 (L) | 20.0 - 40.0 % | [facility] | | | Lymphocytes | | | [facility] | [facility] | [facility] | | | | | | [facility] | | + + + + + + | % Monocytes | 9.1 | 3.0 - 13.0 % | [facility] | | | | | | [facility] | [facility] | | | | | | [facility] | | + + + + + + | % | 7.7 (H) | 0.0 - 7.0 % | [...] + + + | % Immature | 2.0 (H) | 0.0 - 0.5 % | [facility] | | | Granulocyte | | | [facility] | | | [facility] | | | [facility] | | | | | | LABORATORY | | + + + + + + | Absolute | 9.20 (H) | 2.80 - 7.70 | [facility] | | | Neutrophils | | K/uL | [facility] | | | | [facility] | | | | | | [facility]ATORY | | + + + + + + | Absolute | 0.76 (L) | 1.20 - 3.30 | [facility] | | | Lymphocytes | | K/uL | [facility] | | | | | | [facility] | | + + + + + + | Absolute | 1.12 (H) | 0.00 - 0.80 | [place] | | | Monocytes | | K/uL | [facility] | | | | | | LAB[facility]ATORY | | + + + + + + | Absolute | 0.95 (H) | 0.00 - 0.70 | [place] | | | Eosinophils | | K/uL | [facility] | | | | | | LAB[facility]ATORY | | + + + + + + | Absolute | 0.05 | 0.00 - 0.20 | [place] | | | Basophils | | K/uL | [facility] | | | | | | LAB[facility]ATORY | | + + + + + + | Absolute | 0.25 (H) | 0.00 - 0.15 | [facility] [...] + + | [facility] | [address] | [place] [address] | [phone] | | [facility] | | | | + + + + + ECG 12 lead (09/30/2018 2:36 PM PDT) + + | Specimen | + + | | + + + + + | Narrative | Performed At | + + + | Heart Rate: 89 | [facility] | | bpmQRS Interval: 86 msQT Interval: 348 msQTC Interval: 424 msP [place]: | [facility] | | 52 degQRS [place]: -1 degT [place]: 18 degP-R Interval: 176 msec- | | | ABNORMAL ECG -SINUS RHYTHM [Remains]MULTIPLE ATRIAL PREMATURE | | | COMPLEXES [Now Present]PROBABLE INFERIOR INFARCT, AGE INDETERMINATE | | | [Insig. Chg.]SIGNIFICANT ECG CONTOUR CHANGES[Now Absent] EARLY | | | PRECORDIAL R/S TRANSITION | | |P-R Interval: 176 msec | | |- ABNORMAL ECG - | | |SINUS RHYTHM [Remains] | | |MULTIPLE ATRIAL PREMATURE COMPLEXES [Now Present] | | |PROBABLE INFERIOR INFARCT, AGE INDETERMINATE [Insig. Chg.] | | |SIGNIFICANT ECG CONTOUR CHANGES | | |[Now Absent] EARLY PRECORDIAL R/S TRANSITION | | + + + + +---------+ + + | Performing | Address | City/State/Zipcode | Phone Number | | Organization | | | | + +---------+ + + | [facility] | | | | + +---------+ + + documented in this encounter Visit Diagnoses + + | Diagnosis | + + | Mediastinal adenopathy - Primary Enlargement of lymph nodes | + + | Weakness generalized Other malaise and fatigue | + + documented in this encounter Administered Medications + +--------+ +--------+------+------+ | Medication Order | MAR | Action | Dose | Rate | Site | | | Action | Date | | | | + +--------+ +--------+------+------+ | iopamidol (ISOVUE-370) 370 | Given | 10/01/19 | 75 mLs | | | | mg/mL injection 75 mL 75 mL, | | 19 4:53 | | | | | Intravenous, ONCE PRN, Other, | | PM PDT | | | | | Starting 09/30/18 at 1653, For | | | | | | | 1 dose, Cat Scanner | | | | | | + +--------+ +--------+------+------+ +---+---+ | | | +---+---+ documented in this encounter Additional Health Concerns + + + + | Infection | Noted Time | Resolved Time | + + + + | Methicillin-resistant Staphylococcus aureus | 07/20/2018 4:00 PM | | | | PDT | | + + + + documented as of this encounter
--- OUTSIDE RECORDS SUMMARY | ~2019-02-17 | XMS | Encounter Summary ---
Demographics + + + | Address | [address] | | | [place] [address] | + + + | Home Phone | | + + + | Preferred Language | Unknown | + + + | Marital Status | | + + + | Christian Affiliation | 1025 | + + + | Race | Unknown | + + + | Ethnic Group | Unknown | + + + Author + + + | Author | [facility] | | | and [place] | + + + | Organization | [facility] | | [...] Providers + +------+ + | Care Veterinary Technologist Name | Role | Phone | + [...] Description | +--------+--------+ + + + | 01/29/ | Refill | [facility] | Horacio Silvestre, | Medication Refill | | 2017 | | [facility] | DO [address] [place] | | | | | [facility] [address] | [facility], [place] | | | | [address] [place], | [address] | | | | | [place] [address] | [phone] | | | | | [phone] | | | +--------+--------+ + + + [...] [place] | | | | | | [address] | | | | | | [phone] | | | | | | | | +--------+---------+ + + + | 02/26/ | Office | Urology | Lillie Fowler | | | 2018 | Visit | | LILLIE Lopez [address] | | | | | | [address] | | | | | | [place], [place] | | | | | | [address] | | | | | | [phone] | | | | | | | | +--------+---------+ + + + | 03/16/ | Office | Neurology | Theresa, | | | 2018 | Visit | | SHONDA M[address]ney [address] | | | | | | [address] [place], | | | | | | [place] [address] | | | | | | [phone] | | | | | | | | +--------+---------+ + + + | 04/12/ | Office | Primary Care | Massimo Ramos | | | 2019 | Visit | | MD Fer [address] | | | | | | [place] | | | | | | [address] | | | | | | | | +--------+---------+ + + + | 10/03/ | Office | Neurology | Fabián Carias MD | | | 2019 | Visit | | [address] | | | | | | [place] | | | | | | [address] | | | | | | | [...] | | care | | | Director Television News-C | | | | | | | [...] | | care | | | Director Television News-C | | | | | | | [...] | | care | | | Director Television News-C | | | | | | | [...] | | care | | | Director Television News-C | | | | | | | linical | + +--------+ +---+-----+ + + + | Note: Pt will | | check CBG's daily x1 | | Pt will take Lantis as | | prescribed | + + documented as of this encounter Visit Diagnoses Not on filedocumented in this encounter"
--- OUTSIDE RECORDS SUMMARY | ~2019-02-17 | XMS | Encounter Summary ---
Demographics + + + | Address | [address] | | | [place] [address] | + + + | Home Phone | | + + + | Preferred Language | Unknown | + + + | Marital Status | | + + + | Hinduism Affiliation | 1025 | + + + | Race | Unknown | + + + | Ethnic Group | Unknown | + + + Author + + + | Author | [facility] | | | and [place] | + + + | Organization | [facility] | | | and [...] Team Providers + +------+ + | Care Credit Review Officer Name | Role | Phone | + +------+ + | Horacio Silvestre DO | PCP | | + +------+ + Reason for Referral Diagnostic/Screening (Emergency) +--------+--------+ + + + + | Status | Reason | Specialty | Diagnoses / | Referred By | Referred To | | | | | Procedures | Contact | Contact | +--------+--------+ + + + + | Closed | | Radiology | Diagnoses | Guibourn, | Cc Wgr Xray | | | | | Mediastinal | Horacio S, DO | [address] | | | | | | [address] | [address] | | | | | lymphadenopa | [place], | [place], [place] | | | | | thy | [place] | [address] | | | | | Procedures | [address] | Phone: | | | | | PET CT Skull | Phone: | [phone] | | | | | Base To Mid | [phone] | Fax: | | | | | Thigh PET | Fax: | [phone] | | | | | CT Limited | [phone] | | +--------+--------+ + + + + Reason for Visit Diagnostic/Screening (Emergency) +--------+--------+ + + + + | Status | Reason | Specialty | Diagnoses / | Referred By | Referred To | | | | | Procedures | Contact | Contact | +--------+--------+ + + + + | Closed | | Radiology | Diagnoses | [place], | Cc Wgr Xray | | | | | Mediastinal | Horacio S, DO | [address] | | | | | | [address] | [address] | | | | | lymphadenopa | [place], | [place], [place] | | | | | thy | [place] | [address] | | | | | Procedures | [address] | Phone: | | | | | PET CT Skull | Phone: | [phone] | | | | | Base To Mid | [phone] | Fax: | | | | | Thigh PET | Fax: | [phone] | | | | | CT Limited | [phone] | | +--------+--------+ + + + + Encounter Details +--------+ + + + + | Date | Type | Department | Care Team | Description | +--------+ + + + + | 11/16/ | Hospital | [facility] | Horacio Silvestre S, | Mediastinal | | 2019 | Encounter | [facility] PET [facility]AN | DO [address] [place] | lymphadenopathy | | | | [address] [place] | [place], [place] | | | | | [place], [place] | [address] | | | | | [address] | [phone] | | | | | [phone] | | | +--------+ + + + [...] tablet by | 30 | 0 | /08/ | | | 50 mg tablet | [...] atorvaSTATin | Take 1 tablet by | 30 | 3 | 11/06/19 | | | (LIPITOR) 40 mg | mouth Daily for 30 | tablet | | 19 | 9 | | tablet | days. | | | | | + + + +---------+ + + | dipyridamole | Take 1 tablet by | 90 | 3 | 11/05/19 | | | (PERSANTINE) 25 mg | mouth 3 times daily | tablet | | 19 | 9 | | tablet | for 30 days. | | | | | + + + +---------+ + + | insulin aspart | Inject 15 Units | | 0 | | | | (NOVOLOG) 100 | under the skin every | | | | 9 | | units/mL injection | morning. | | | | | + [...] + + + +---------+ + + | pantoprazole | Take 20 mg by mouth | | 0 | | | | (PROTONIX) 20 mg | every morning | | | | 9 | | tablet | (before breakfast). | | | | | + + + +---------+ + + documented as of this encounter Plan of Treatment +--------+---------+ + + + | Date | Type | Specialty | Care Team | Description | +--------+---------+ + + + | 02/25/ | Office | General Surgery | Scott De Oliveira | | 2018 | Visit | | DO Jalen [address] | | | | | | [address] | | | | | | [place] | | | | | | [address] | | | | | | [phone] | | | | | | | | +--------+---------+ + + + | 02/26/ | Office | Urology | Lillie Fowler | | | 2018 | Visit | | [address]ILLIE Lopez [address] | | | | | | [address] | | | | | | [place], [place] | | | | | | [address] | | | | | | [phone] | | | | | | | | +--------+---------+ + + + | 03/16/ | Office | Neurology | Theresa, | | | 2018 | Visit | | [address] | | | | | [address] [place], | | | | | | [place] [address] | | | | | | [phone] | | | | | | | | +--------+---------+ + + + | 04/12/ | Office | Primary Care | Massimo Ramos | | | 2019 | Visit | | MD Fer [address] | | | | | | [place] | | | | | | [address] | | | | | | | | +--------+---------+ + + + | 10/03/ | Office | Neurology | Fabián Cairas MD | | | 2019 | Visit | | [address] | | | | | | [place] | | | | | | [address] | | | | | | | [...] | | | care | | | Reinforcing Iron Worker Helper-C | | | | | | [...] | | | care | | | Reinforcing Iron Worker Helper-C | | | | | | [...] | | | care | | | Reinforcing Iron Worker Helper-C | | | | | | [...] | | | care | | | Reinforcing Iron Worker Helper-C | | | | | | [...] | + +--------+ + + + | PET CT SKULL BASE TO | STAT | 11/16/2018 | Mediastinal | Results for this | | MID THIGH | | 11:56 AM | lymphadenopathy | procedure are in the | | | | PDT | | results section. | + +--------+ + + + documented in this encounter Results PET CT Skull Base To Mid Thigh (11/16/2018 11:56 AM PDT) + + | Specimen | + + | | + + + + + | Impressions | Performed At | + + + | IMPRESSION: 1. Decreased volume of previously noted mediastinal | [facility] | | adenopathy. Several mildly FDG avid lymph nodes are noted which may | | | relate to reactive nodes although malignant adenopathy is not strictly | | | excluded. Recommend 3-[address] thorax to re-evaluate. 2. The | | | previously noted left lower lobe soft tissue nodules are not | | | redemonstrated. 3. Probable atelectasis left lower lobe. 3-6 month | | | follow-up CT thorax recommended to re-evaluate. 4. Hypermetabolic | | | focus at the sigmoid colon in region of prior surgery. Finding could | | | relate to inflammatory process although neoplasm is not excluded. | | | Colonoscopy recommended. 5. Small hypermetabolic focus within the | | | prostate. This finding could relate to benign or malignant process. | | | Recommend PSA, and urology consult. 6. Atherosclerosis coronary | | | arteries. 7. Cardiomegaly. Dictated by: Troy Lawrence | | | | | + + + + + + | Narrative | Performed At | + + + | EXAMINATION: PET CT SKULL BASE TO MID THIGH HISTORY: | [facility] | | mediastinal lymphadenopathy COMPARISON STUDY: CT head neck | | | 11/02/2018. CT chest 09/30/2018. CT chest 05/27/2018. CT abdomen | | | pelvis 07/05/2018. CT chest 03/16/2018. CT chest abdomen pelvis | | | 12/25/2016. CT abdomen pelvis 10/14/2015. CT thorax 04/10/2015. | | | TECHNIQUE: 13.4mCi F18 FDG is injected with fasting blood sugar of | | | 174mg/dl followed by PET/CT images from skull base through the mid | | | thigh. FINDINGS: HEAD/NECK: Normal bihemispheric | | | radiopharmaceutical uptake noted intracranially. No cervical | | | adenopathy.. CHEST: The previously noted left lower lobe nodules | | | are not redemonstrated. At the lateral basal left lower lobe | | | subsegmental consolidation noted on image 153. SUV is 3.57. The | | | mediastinal adenopathy noted on 11/02/2018, and 09/30/2018 CT studies | | | demonstrates interval decrease volume of lymph size. On 11/02/2018 | | | study a 16 mm short axis diameter lymph node was present adjacent to | | | the aortic arch. On the current study short axis diameter is 7 mm. | | | SUV is approximately 3.45. At the left hilum peak SUV is 4.5. | | | Previously at the superior mediastinum adjacent to the right margin | | | of esophagus 2 lymph nodes were noted with short axis diameters | | | approximate 1.2, and 1.0 cm. On the current study dimensions are | | | approximately 0.8, and 0.8 cm. SUV is approximately 3.01. The | | | SUV of the aortic arch is proximally 2.39. No hilar adenopathy. | | | Cardiomegaly. Atherosclerosis coronary arteries. ABD/PELVIS: | | | At the prostate focal hypermetabolic region with SUV of 4.35 noted. | | | At the sigmoid colon anastomotic site a focal region of | | | hypermetabolic FDG uptake noted. SUV 9. Low-level tissue | | | metabolic activity demonstrated. The gallbladder is absent. Spleen | | | volume is normal. Surgical clips noted within abdominal mesentery. | | | Bilateral hydroceles.. SKELETON: Low-level skeletal background | | | activity demonstrated. No lytic or blastic bone lesions. | | + + + + + | Procedure Note | + + | Osito, Rad Results In - 11/19/2018 7:23 AM PDT EXAMINATION:PET CT SKULL BASE TO MID | | THIGHHISTORY:mediastinal lymphadenopathyCOMPARISON STUDY:CT head neck 11/02/2018. CT | | chest 09/30/2018. CT chest 05/27/2018. CT abdomen pelvis 07/05/2018. CT chest | | 03/16/2018. CT chest abdomen pelvis 12/25/2016. CT abdomen pelvis 10/14/2015. CT | | thorax 04/10/2015.TECHNIQUE:13.4mCi F18 FDG is injected with fasting blood sugar of | | 174mg/dl followed by PET/CT images from skull base through the mid | | thigh.FINDINGS:HEAD/NECK: Normal bihemispheric radiopharmaceutical uptake noted | | intracranially. No cervical adenopathy..CHEST: The previously noted left lower lobe | | nodules are not redemonstrated.At the lateral basal left lower lobe subsegmental | | consolidation noted on image 153. SUV is 3.57.The mediastinal adenopathy noted on | | 11/02/2018, and 09/30/2018 CT studies demonstrates interval decrease volume of lymph | | size. On 11/02/2018 study a 16 mm short axis diameter lymph node was present adjacent | | to the aortic arch. On the current study short axis diameter is 7 mm. SUV is | | approximately 3.45.At the left hilum peak SUV is 4.5.Previously at the superior | | mediastinum adjacent to the right margin of esophagus 2 lymph nodes were noted with | | short axis diameters approximate 1.2, and 1.0 cm. On the current study dimensions are | | approximately 0.8, and 0.8 cm. SUV is approximately 3.01. The SUV of the aortic arch | | is proximally 2.39.No hilar adenopathy.Cardiomegaly.Atherosclerosis coronary | | arteries.ABD/PELVIS: At the prostate focal hypermetabolic region with SUV of 4.35 | | noted.At the sigmoid colon anastomotic site a focal region of hypermetabolic FDG uptake | | noted. SUV 9.Low-level tissue metabolic activity demonstrated. The gallbladder is | | absent. Spleen volume is normal. Surgical clips noted within abdominal mesentery. | | Bilateral hydroceles..SKELETON: Low-level skeletal background activity demonstrated. No | | lytic or blastic bone lesions.IMPRESSION: IMPRESSION:1. Decreased volume of previously | | noted mediastinal adenopathy. Several mildly FDG avid lymph nodes are noted which may | | relate to reactive nodes although malignant adenopathy is not strictly excluded. | | Recommend 3-[address] thorax to re-evaluate.2. The previously noted left lower lobe | | soft tissue nodules are not redemonstrated.3. Probable atelectasis left lower lobe. 3-6 | | month follow-up CT thorax recommended to re-evaluate.4. Hypermetabolic focus at the | | sigmoid colon in region of prior surgery. Finding could relate to inflammatory process | | although neoplasm is not excluded. Colonoscopy recommended.5. Small hypermetabolic | | focus within the prostate. This finding could relate to benign or malignant process. | | Recommend PSA, and urology consult.6. Atherosclerosis coronary arteries.7. | | Cardiomegaly.Dictated by: Troy LawrenceElectronically Signed by: Troy Lawrence on | | 11/19/2018 7:19 AM | |At the sigmoid colon anastomotic site a focal region of hypermetabolic FDG uptake noted. S UV 9. | | | |Low-level tissue metabolic activity demonstrated. The gallbladder is absent. Spleen volum e is normal. Surgical clips noted within abdominal mesentery. Bilateral hydroceles.. | | | |SKELETON: Low-level skeletal background activity demonstrated. No lytic or blastic bone le sions. | | | |IMPRESSION: | |IMPRESSION: | |1. Decreased volume of previously noted mediastinal adenopathy. Several mildly FDG avid ly mph nodes are noted which may relate to reactive nodes although malignant adenopathy is not strictly excluded. Recommend 3-[address] thorax to re-evaluate. | |2. The previously noted left lower lobe soft tissue nodules are not redemonstrated. | |3. Probable atelectasis left lower lobe. 3-6 month follow-up CT thorax recommended to re-e valuate. | |4. Hypermetabolic focus at the sigmoid colon in region of prior surgery. Finding could rel ate to inflammatory process although neoplasm is not excluded. Colonoscopy recommended. | |5. Small hypermetabolic focus within the prostate. This finding could relate to benign or malignant process. Recommend PSA, and urology consult. | |6. Atherosclerosis coronary arteries. | |7. Cardiomegaly. | | | |Dictated by: Troy Lawrence [...] | Diagnosis | + + | Mediastinal lymphadenopathy Enlargement of lymph nodes | + + documented in this encounter Administered Medications + +--------+ + +------+------+ | Medication Order | MAR | Action | Dose | Rate | Site | | | Action | Date | | | | + +--------+ + +------+------+ | fluorine-18 FDG injection 13.4 | Given | 11/17/19 | 13.4 | | | | millicurie 13.4 millicurie, | | 19 10:05 | millicur | | | | Intravenous, ONCE, 11/16/18 at | | AM PDT | ies | | | | 1015, For 1 dose | | | | | | + +--------+ + +------+------+ +---+---+ | | | +---+---+ documented in this encounter Additional Health Concerns + + + + | Infection | Noted Time | Resolved Time | + + + + | Methicillin-resistant Staphylococcus aureus | 07/20/2018 4:00 PM | | | | PDT | | + + + + documented as of this encounter"
--- OUTSIDE RECORDS SUMMARY | ~2019-02-17 | XMS | Encounter Summary ---
Demographics + + + | Address | [address] | | | [place] [address] | + + + | Home Phone | | + + + | Preferred Language | Unknown | + + + | Marital Status | | + + + | Catholic Affiliation | 1025 | + + + | Race | Unknown | + + + | Ethnic Group | Unknown | + + + Author + + + | Author | [facility] | | | and [place] | + + + | Organization | [facility] | | | [...] Team Providers + +------+ + | Care Appraisal Specialist Name | Role | Phone | + +------+ + | Horacio Silvestre DO | PCP | | + +------+ + Reason for Visit + + + | Reason | Comments | + + + | Lab Results | | + + + Encounter Details +--------+ + + + + | Date | Type | Department | Care Team | Description | +--------+ + + + + | 12/12/ | Telephone | [facility] | Horacio Silvestre, | Lab Results | | 2018 | | [facility] | DO [address] [place] | | | | | [facility] [address] | [facility], [place] | | | | | [address] [place], | [address] | | | | | [place] [address] | [phone] | | | | | [phone] | | | +--------+ + + + [...] [place] | | | | | | [address] | | | | | | [phone] | | | | | | | | +--------+---------+ + + + | 02/26/ | Office | Urology | Lilile Fowler | | | 2018 | Visit | | [address]ILLIE Lopez [address] | | | | | | [address] | | | | | | [place], [place] | | | | | | [address] | | | | | | [phone] | | | | | | | | +--------+---------+ + + + | 03/16/ | Office | Neurology | Theresa, | | | 2018 | Visit | | [address] | | | | | [address] [place], | | | | | | [place] [address] | | | | | | [phone] | | | | | | | | +--------+---------+ + + + | 04/12/ | Office | Primary Care | Massimo Ramos | | | 2019 | Visit | | MD Fer [address] | | | | | | [address] [place], [place] | | | | | | [address] | | | | | | | | +--------+---------+ + + + | 10/03/ | Office | Neurology | Fabián Carias MD | | | 2019 | Visit | | [address] | | | | | | [place] | | | | | | [address] | | | | | | | [...] | | | care | | | Manager Of Tires Sales-C | | | | | | [...] | | | care | | | Manager Of Tires Sales-C | | | | | | [...] | | | care | | | Manager Of Tires Sales-C | | | | | | [...] | | | care | | | Manager Of Tires Sales-C | | | | | | | linical | + +--------+ +---+-----+ + + + | Note: Pt will | | check CBG's daily x1 | | Pt will take Lantis as | | prescribed | + + documented as of this encounter Visit Diagnoses Not on filedocumented in this encounter"
--- OUTSIDE RECORDS SUMMARY | ~2019-02-17 | XMS | Encounter Summary ---
Demographics + + + | Address | [address] | | | [place] [address] | + + + | Home Phone [...] + | Author | [facility] | | | and [place] | + + + | Organization | [facility] | | | [...] Team Providers + +------+ + | Care Reservoir Engineer Name | Role | Phone | [...] Description | +--------+--------+ + + + | 10/01/ | Refill | [facility] | Horacio Silvestre, | Medication Refill | | 2017 | | [facility] | [address] [place] | | | | | [facility]ICAL CL[facility] [address] | [facility] [address], [place] | | | | | [address] [place], | [address] | | | | | [place] [address] | [phone] | | | | | [phone] | | | +--------+--------+ + + + [...] [place] | | | | | | [address] | | | | | | [phone] | | | | | | | | +--------+---------+ + + + | 02/26/ | Office | Urology | Lillie Fowler | | | 2018 | Visit | | LILLIE Lopez [address] | | | | | | [address] | | | | | | [place], [place] | | | | | | [address] | | | | | | [phone] | | | | | | | | +--------+---------+ + + + | 03/16/ | Office | Neurology | Theresa, | | | 2018 | Visit | | [address] | | | | | [address] [place], | | | | | | [place] [address] | | | | | | [phone] | | | | | | | | +--------+---------+ + + + | 04/12/ | Office | Primary Care | Massimo Ramos | | | 2019 | Visit | | MD Fer [address] | | | | | | [place] | | | | | | [address] | | | | | | | | +--------+---------+ + + + | 10/03/ | Office | Neurology | Fabián Carias MD | | | 2019 | Visit | | [address] | | | | | | [place] | | | | | | [address] | | | | | | | [...] | | | care | | | Windows Security Analyst-C | | | | | | | [...] | | | care | | | Windows Security Analyst-C | | | | | | | [...] | | | care | | | Windows Security Analyst-C | | | | | | | [...] | | | care | | | Windows Security Analyst-C | | | | | | | linical | + +--------+ +---+-----+ + + + | Note: Pt will | | check CBG's daily x1 | | Pt will take Lantis as | | prescribed | + + documented as of this encounter Visit Diagnoses Not on filedocumented in this encounter"
--- OUTSIDE RECORDS SUMMARY | ~2019-02-17 | XMS | Encounter Summary ---
Demographics + + + | Address | [address] | | | [place] [address] | + + + | Home Phone [...] Team Providers + +------+ + | Care Vehicle Assembly Inspector Name | Role | Phone | + +------+ + | Horacio Silvestre DO | PCP | | + +------+ + Encounter Details +--------+ + + + + | Date | Type | Department | Care Team | Description | +--------+ + + + + | 10/19/ | Orders Only | [facility] | Horacio Silvestre, | | | 2019 | | [facility] | DO [address] | | | | | MED[facility] [address] | [place], [place] | | | | | [address] [place], | [address] | | | | | [place] [address] | [phone] | | | | | [phone] | | | +--------+ + + + [...] [place] | | | | | | [address] | | | | | | [phone] | | | | | | | | +--------+---------+ + + + | 02/26/ | Office | Urology | Lillie Fowler | | | 2018 | Visit | | [address] | | | | | | [address] | | | | | | [place] | | | | | | [address] | | | | | | [phone] | | | | | | | | +--------+---------+ + + + | 03/16/ | Office | Neurology | Theresa, | | | 2018 | Visit | | [address] | | | | | | [address] [place], | | | | | | [place] [address] | | | | | | [phone] | | | | | | | | +--------+---------+ + + + | 04/12/ | Office | Primary Care | Massimo Ramos | | | 2019 | Visit | | MD Fer [address] | | | | | | [address] [place] | | | | | | [address] | | | | | | | | +--------+---------+ + + + | 10/03/ | Office | Neurology | Fabián Carias MD | | | 2019 | Visit | | [address] | | | | | | [place], [place] | | | | | | [address] | | | | | | | [...] | | | care | | | Assistant Superintendent For Curriculum-C | | | | | | | [...] | | | care | | | Assistant Superintendent For Curriculum-C | | | | | | | [...] | | | care | | | Assistant Superintendent For Curriculum-C | | | | | | | [...] | | | care | | | Assistant Superintendent For Curriculum-C | | | | | | | [...]
--- OUTSIDE RECORDS SUMMARY | ~2019-02-17 | XMS | Encounter Summary ---
Demographics + + + | Address | [address] | | | [place] [address] | + + + | Home Phone | | + + + | Preferred Language | Unknown | + + + | Marital Status | | + + + | Latter Day Affiliation | 1025 | + + + | Race | Unknown | + + + | Ethnic Group | Unknown | + + + Author + + + | Author | [facility] | | | and [place] | + + + | Organization | [facility] | [...] Team Providers + +------+ + | Care Economics Department Chair Name | Role | Phone | + [...] | [address] [place], | [address] | | | | | [place] [address] | | | | | | [phone] | | | +--------+ + + + [...] [place] | | | | | | [address] | | | | | | [phone] | | | | | | | | +--------+---------+ + + + | 02/26/ | Office | Urology | Malcolm Lillie | | | 2018 | Visit | | [address] | | | | | | [address] | | | | | | [place], [place] | | | | | | [address] | | | | | | [phone] | | | | | | | | +--------+---------+ + + + | 03/16/ | Office | Neurology | Theresa, | | | 2018 | Visit | | [address] | | | | | | [address] [place], | | | | | | [place] [address] | | | | | | [phone] | | | | | | | | +--------+---------+ + + + | 04/12/ | Office | Primary Care | Massimo Ramos | | | 2019 | Visit | | MD Fer [address] | | | | | | [place] | | | | | | [address] | | | | | | | | +--------+---------+ + + + | 10/03/ | Office | Neurology | Fabián Carias MD | | | 2019 | Visit | | [address] | | | | | | [place] | | | | | | [address] | | | | | | | [...] | | | care | | | Superintendent Track-C | | | | | | | [...] | | | care | | | Superintendent Track-C | | | | | | | [...] | | | care | | | Superintendent Track-C | | | | | | | [...] | | | care | | | Superintendent Track-C | | | | | | | linical | + +--------+ +---+-----+ + + + | Note: Pt will | | check CBG's daily x1 | | Pt will take Lantis as | | prescribed | + + documented as of this encounter Visit Diagnoses Not on filedocumented in this encounter"
--- OUTSIDE RECORDS SUMMARY | ~2019-02-17 | XMS | Encounter Summary ---
Demographics + + + | Address | [address] | | | [place] [address] | + + + | Home Phone | | + + + | Preferred Language | Unknown | + + + | Marital Status | | + + + | Taoist Affiliation | 1025 | + + + | Race | Unknown | + + + | Ethnic Group | Unknown | + + + Author + + + | Author | [facility] | | | and [place] | + + + | Organization | [facility] | | | and [...] Team Providers + +------+ + | Care Cpr Ambulance Driver Name | Role | Phone | + +------+ + PCP | Unavailable | + +------+ + Encounter Details +--------+ + + + + | Date | Type | Department | Care Team | Description | +--------+ + + + + | 09/07/ | Hospital | [facility] | Ryan Gutiérrez | | | 2008 | Encounter | [facility] | MD [address] | | | | | THERAPY [address] | [address] | | | | | [address] [place], [place] | [place] [address] | | | | | [address] | [phone] | | | | | [phone] | | | +--------+ + + + [...] [place] | | | | | | [address] | | | | | | [phone] | | | | | | | | +--------+---------+ + + + | 02/26/ | Office | Urology | Lillie Fowler | | | 2018 | Visit | | [address] | | | | | | [address] | | | | | | [place], [place] | | | | | | [address] | | | | | | [phone] | | | | | | | | +--------+---------+ + + + | 03/16/ | Office | Neurology | Theresa, | | | 2018 | Visit | | [address] | | | | | | [address] [place], | | | | | | [place] [address] | | | | | | [phone] | | | | | | | | +--------+---------+ + + + | 04/12/ | Office | Primary Care | Massimo Ramos Pedro Luis | | | 2019 | Visit | | MD Fer [address] | | | | | | [place] | | | | | | [address] | | | | | | | | +--------+---------+ + + + | 10/03/ | Office | Neurology | Fabián Carias MD | | | 2019 | Visit | | [address] | | | | | | [place] | | | | | | [address] | | | | | | | [...] | | | care | | | Crtts-C | | | | | | | [...] | | | care | | | Crtts-C | | | | | | | [...] | | | care | | | Crtts-C | | | | | | | [...] | | | care | | | Crtts-C | | | | | | | linical | + +--------+ +---+-----+ + + + | Note: Pt will | | check CBG's daily x1 | | Pt will take Lantis as | | prescribed | + + documented as of this encounter Visit Diagnoses Not on filedocumented in this encounter"
--- OUTSIDE RECORDS SUMMARY | ~2019-02-17 | XMS | Encounter Summary ---
Demographics + + + | Address | [address] | | | [place] [address] | + + + | Home Phone [...] Team Providers + +------+ + | Care Rigger Helper Name | Role | Phone | + +------+ + | Ryan Gutiérrez MD | PCP | | + +------+ + Encounter Details +--------+ + + + + | Date | Type | Department | Care Team | Description | +--------+ + + + + | 01/08/ | Hospital | [facility] | Horacio Silvestre, | | | 2016 | Encounter | [facility] | DO [address] [place] | | | | | MEDICAL CLIN[facility] [address] | [facility], [place] | | | | | [address] [facility], | [address] | | | | | [place] [address] | [phone] | | | | | [phone] | | | +--------+ + + + [...] [place] | | | | | | [address] | | | | | | [phone] | | | | | | | | +--------+---------+ + + + | 02/26/ | Office | Urology | Lillie Fowler | | | 2018 | Visit | | [address] | | | | | | [address] | | | | | | [place] | | | | | | [address] | | | | | | [phone] | | | | | | | | +--------+---------+ + + + | 03/16/ | Office | Neurology | Theresa, | | | 2018 | Visit | | [address] | | | | | | [address] [place], | | | | | | [place] [address] | | | | | | [phone] | | | | | | | | +--------+---------+ + + + | 04/12/ | Office | Primary Care | Massimo Ramos | | | 2019 | Visit | | MD Fer [address] | | | | | | [place] | | | | | | [address] | | | | | | | | +--------+---------+ + + + | 10/03/ | Office | Neurology | Fabián Carias MD | | | 2019 | Visit | | [address] | | | | | | [place] | | | | | | [address] | | | | | | | [...] | | | care | | | Learning And Development Officer-C | | | | | | | [...] | | | care | | | Learning And Development Officer-C | | | | | | | [...] | | | care | | | Learning And Development Officer-C | | | | | | | [...] | | | care | | | Learning And Development Officer-C | | | | | | | linical | + +--------+ +---+-----+ + + + | Note: Pt will | | check CBG's daily x1 | | Pt will take Lantis as | | prescribed | + + documented as of this encounter Visit Diagnoses Not on filedocumented in this encounter"
--- OUTSIDE RECORDS SUMMARY | ~2019-02-17 | XMS | Encounter Summary ---
Demographics + + + | Address | [address] | | | [place] [address] | + + + | Home Phone [...] + + | Author | [facility] | | | and [place] | + + + | Organization | [facility] | | | and [...] Team Providers + +------+ + | Care Manhole Stripper Name | Role | Phone | + +------+ + | Horacio Silvestre DO | PCP | | + +------+ + Reason for Visit + + + | Reason | Comments | + + + | Discharge | | | Planning/needs | | + + + Encounter Details +--------+ + + + + | Date | Type | Department | Care Team | Description | +--------+ + + + + | 10/21/ | Telephone | [facility] [facility] | Horacio Silvestre, | Discharge | | 2019 | | [facility] | DO [address] | Planning/needs | | | | MEDICAL CLIN[facility] [address] | [facility], [place] | | | | | [address] [place], | [address] | | | | | [place] [address] | [phone] | | | | | [phone] | | | +--------+ + + + [...] [place] | | | | | | [address] | | | | | | [phone] | | | | | | | | +--------+---------+ + + + | 02/26/ | Office | Urology | Lillie Fowler | | | 2018 | Visit | | [address] | | | | | | [address] | | | | | | [place], [place] | | | | | | [address] | | | | | | [phone] | | | | | | | | +--------+---------+ + + + | 03/16/ | Office | Neurology | Theresa, | | | 2018 | Visit | | [address] | | | | | | [address] [place], | | | | | | [place] [address] | | | | | | [phone] | | | | | | | | +--------+---------+ + + + | 04/12/ | Office | Primary Care | Massimo Ramos Pedro Luis | | | 2019 | Visit | | MD Fer [address] | | | | | | [place] | | | | | | [address] | | | | | | | | +--------+---------+ + + + | 10/03/ | Office | Neurology | Fabián Carias MD | | | 2019 | Visit | | [address] | | | | | | [place] | | | | | | [address] | | | | | | | [...] | | | care | | | Oriental Rug Stretcher-C | | | | | | | [...] | | | care | | | Oriental Rug Stretcher-C | | | | | | | [...] | | | care | | | Oriental Rug Stretcher-C | | | | | | | [...] | | | care | | | Oriental Rug Stretcher-C | | | | | | | [...]
--- OUTSIDE RECORDS SUMMARY | ~2019-02-17 | XMS | Encounter Summary ---
Demographics + + + | Address | [address] | | | [place] [address] | + + + | Home Phone [...] | Author | [facility] | | | and [place] | + + + | Organization | [facility] | | | and [...] Team Providers + +------+ + | Care Vacuum Drier Operator Name | Role | Phone | + +------+ + | Horacio Silvestre DO | PCP | | + +------+ + Reason for Visit + + + | Reason | Comments | + + + | Radiology | PET CT; | | Appointment | | + + + Encounter Details +--------+ + + + + | Date | Type | Department | Care Team | Description | +--------+ + + + + | 10/23/ | Telephone | [facility] [facility] | Horacio Silvestre, | Radiology | | 2019 | | [facility] | DO [address] | Appointment (PET | | | | MEDICINE [address] | [place] | CT;) | | | | [place] | [address] | | | | | [address] | [phone] | | | | | [phone] | | | +--------+ + + + [...] [place] | | | | | | [address] | | | | | | [phone] | | | | | | | | +--------+---------+ + + + | 02/26/ | Office | Urology | Lillie Fowler | | | 2018 | Visit | | [address] | | | | | | [address] | | | | | | [place], [place] | | | | | | [address] | | | | | | [phone] | | | | | | | | +--------+---------+ + + + | 03/16/ | Office | Neurology | Theresa, | | | 2018 | Visit | | [address] | | | | | | [address] [place], | | | | | | [place] [address] | | | | | | [phone] | | | | | | | | +--------+---------+ + + + | 01/06/ | Office | Primary Care | Massimo Ramos Pedro Luis | | | 2019 | Visit | | MD Fer [address] | | | | | | [place] | | | | | | [address] | | | | | | | | +--------+---------+ + + + | 10/03/ | Office | Neurology | Fabián Carias MD | | | 2019 | Visit | | [address] | | | | | | [place] | | | | | | [address] | | | | | | | [...] | | | care | | | Client Service Coordinator-C | | | | | | [...] | | | care | | | Client Service Coordinator-C | | | | | | [...] | | | care | | | Client Service Coordinator-C | | | | | | [...] | | | care | | | Client Service Coordinator-C | | | | | | [...]
--- OUTSIDE RECORDS SUMMARY | ~2019-02-17 | XMS | Encounter Summary ---
Demographics + + + | Address | [address] | | | [place] [address] | + + + | Home Phone [...] Team Providers + +------+ + | Care Rock Loader Name | Role | Phone | + +------+ + | Ryan Gutiérrez MD | PCP | | + +------+ + Encounter Details +--------+ + + + + | Date | Type | Department | Care Team | Description | +--------+ + + + + | 12/17/ | [facility] | [place], | | | 2016 | Encounter | [facility]OSPITAL [facility] | Carlyle Antoine, | | | | | SURGERY [address] | [address] | | | | | [address] [place], | [place], [place] | | | | | [place] [address] | [address] | | | | | [phone] | [phone] | | | | | | | [...] [address] | | | | | | [address] | | | | | | [place] | | | | | | [address] | | | | | | [phone] | | | | | | | | +--------+---------+ + + + | 02/26/ | Office | Urology | Lillie Fowler | | | 2018 | Visit | | [address] | | | | | | [address] | | | | | | [place] | | | | | | [address] | | | | | | [phone] | | | | | | | | +--------+---------+ + + + | 03/16/ | Office | Neurology | Theresa, | | | 2018 | Visit | | [address] | | | | | | [address] [place], | | | | | | [place] [address] | | | | | | [phone] | | | | | | | | +--------+---------+ + + + | 04/12/ | Office | Primary Care | Massimo Ramos | | | 2019 | Visit | | MD Fer [address] | | | | | | [place] | | | | | | [address] | | | | | | | | +--------+---------+ + + + | 10/03/ | Office | Neurology | Fabián Carias MD | | | 2019 | Visit | | [address] | | | | | | [place] | | | | | | [address] | | | | | | | [...] | | | care | | | Lumite Injector-C | | | | | | | [...] | | | care | | | Lumite Injector-C | | | | | | | [...] | | | care | | | Lumite Injector-C | | | | | | | [...] | | | care | | | Lumite Injector-C | | | | | | | linical | + +--------+ +---+-----+ + + + | Note: Pt will | | check CBG's daily x1 | | Pt will take Lantis as | | prescribed | + + documented as of this encounter Visit Diagnoses Not on filedocumented in this encounter"
--- OUTSIDE RECORDS SUMMARY | ~2019-02-17 | XMS | Encounter Summary ---
Demographics + + + | Address | [address] | | | [place] [address] | + + + | Home Phone | | + + + | Preferred Language | Unknown | + + + | Marital Status | | + + + | Rastafari Affiliation | 1025 | + + + [...] Team Providers + +------+ + | Care Cap Sewer Name | Role | Phone | + [...] | | | | | toenail | [address] | [address] | | | | | Procedures | Phone: | Phone: | | | | | FOOT ISSUES | [phone] | [phone] | | | | | | Fax: | Fax: | | | | | | [phone] | [phone] | +--------+ + + + + + [...] | | | [place], [place] | [address] | sole | | | | [address] | | | | | | [phone] | | | +--------+---------+ + + + [...] | : 1940 | Medical Record Number:[id number] | Author: Nessa Mathur DPM | Date [...] that they could purchase one at right [employer] or [employer]. 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 Electronically signed by: Nessa Mathur DPM 02/19/2018 at 13:42 Note: Part of this report was transcribed using voice recognition software. Every effort wa s made to ensure accuracy. However, inadvertent computerized correctional casework specialist errors may be pre sent. CC: DO [...] [place] | | | | | | [address] | | | | | | [phone] | | | | | | | | +--------+---------+ + + + | 02/26/ | Office | Urology | Lillie Fowler | | | 2018 | Visit | | [address] | | | | | | [address] | | | | | | [place], [place] | | | | | | [address] | | | | | | [phone] | | | | | | | | +--------+---------+ + + + | 03/16/ | Office | Neurology | Theresa, | | | 2018 | Visit | | [address] | | | | | | [address] [place], | | | | | | [place] [address] | | | | | | [phone] | | | | | | | | +--------+---------+ + + + | 04/12/ | Office | Primary Care | Massimo Ramoslulu | | | 2019 | Visit | | MD Fer [address] | | | | | | [place] | | | | | | [address] | | | | | | | | +--------+---------+ + + + | 10/03/ | Office | Neurology | Fabián Carias MD | | | 2019 | Visit | | [address] | | | | | | [place] | | | | | | [address] | | | | | | | [...] | | | care | | | Tape Sewer-C | | | | | | | [...] | | | care | | | Tape Sewer-C | | | | | | | [...] | | | care | | | Tape Sewer-C | | | | | | | [...] | | | care | | | Tape Sewer-C | | | | | | | [...]
--- OUTSIDE RECORDS SUMMARY | ~2019-02-17 | XMS | Encounter Summary ---
Demographics + + + | Address | [address] | | | [place] [address] | + + + | Home Phone | | + + + | Preferred Language | Unknown | + + + | Marital Status | | + + + | Islam Affiliation | 1025 | + + + | Race | Unknown | + + + | Ethnic Group | Unknown | + + + Author + + + | Author | [facility] | | | and [place] | + + + | Organization | [facility] | | | [...] Team Providers + +------+ + | Care Regional Sales Representative Name | Role | Phone | + +------+ + | Horacio Silvestre DO | PCP | | + +------+ + Reason for Visit + + + | Reason | Comments | + + + | Referral Question | | + + + Encounter Details +--------+ + + + + | Date | Type | Department | Care Team | Description | +--------+ + + + + | 10/16/ | Telephone | [facility] | Arnaud Franklin | Referral Question | | 2019 | | [facility]OSPITAL [facility] | MD [address] | | | | | CENTER [address] | [address] | | | | | [address] [place], [place] | [place] | | | | | [address] | [address] | | | | | [phone] | | | | | | | [...] do you have serious | No | 10/12/2018 | | difficulty hearing? | | | + + + + | Are you blind or do you have serious | No | 10/12/2018 | | difficulty seeing, even when wearing | | | | glasses? | | | + + + + | Do you have serious difficulty walking or | No | 10/12/2018 | | climbing stairs? (5 years old or older) | | | + + + + | Do you have difficulty dressing or bathing? | No | 10/12/2018 | | (5 years old or older) | | | + + + + | Because of a physical, mental, or emotional | Yes | 10/12/2018 | | condition, do you have difficulty [...] physical, mental, or emotional | Yes | 10/12/2018 | | condition, do you have serious [...] [place] | | | | | | [address] | | | | | | [phone] | | | | | | | | +--------+---------+ + + + | 02/26/ | Office | Urology | Lillie Fowler | | | 2018 | Visit | | [address] | | | | | | [address] | | | | | | [place], [place] | | | | | | [address] | | | | | | [phone] | | | | | | | | +--------+---------+ + + + | 03/16/ | Office | Neurology | Theresa, | | | 2018 | Visit | | [address] | | | | | | [address] [place], | | | | | | [place] [address] | | | | | | [phone] | | | | | | | | +--------+---------+ + + + | 04/12/ | Office | Primary Care | Massimo Ramos | | | 2019 | Visit | | MD Fer [address] | | | | | | [place] | | | | | | [address] | | | | | | | | +--------+---------+ + + + | 10/03/ | Office | Neurology | Fabián Carias MD | | | 2019 | Visit | | [address] | | | | | | [place] | | | | | | [address] | | | | | | | [...] | | care | | | Manager Clinical Research-C | | | | | | | [...] | | care | | | Manager Clinical Research-C | | | | | | | [...] | | care | | | Manager Clinical Research-C | | | | | | | [...] | | care | | | Manager Clinical Research-C | | | | | | | [...]
--- OUTSIDE RECORDS SUMMARY | ~2019-02-17 | XMS | Encounter Summary ---
Demographics + + + | Address | [address] | | | [place] [address] | + + + | Home Phone | | + + + | Preferred Language | Unknown | + + + | Marital Status | | + + + | Holiness Affiliation | 1025 | + + + | Race | Unknown | + + + | Ethnic Group | Unknown | + + + Author + + + | Author | [facility] | | | and [place] | + + + | Organization | [facility] | | [...] Team Providers + +------+ + | Care Crane Service Technician Name | Role | Phone | [...] + + | 12/04/ | Telephone | [facility] | Fabián Carias MD | Pain Management | | 2019 | | HOSPITAL NEUROLOGY | [address] | | | | | CLINIC [address] | [place] | | | | | DR [address] [place], | [address] | | | | | [place] [address] | | | | | | [phone] | | | +--------+ + + + [...] [place] | | | | | | [address] | | | | | | [phone] | | | | | | | | +--------+---------+ + + + | 02/26/ | Office | Urology | Lillie Fowler | | | 2018 | Visit | | [address] | | | | | | [address] | | | | | | [place], [place] | | | | | | [address] | | | | | | [phone] | | | | | | | | +--------+---------+ + + + | 03/16/ | Office | Neurology | Theresa, | | | 2018 | Visit | | [address] | | | | | | [address] [place], | | | | | | [place] [address] | | | | | | [phone] | | | | | | | | +--------+---------+ + + + | 04/12/ | Office | Primary Care | Massimo Ramos Pedro Luis | | | 2019 | Visit | | MD Fer [address] | | | | | | [place] | | | | | | [address] | | | | | | | | +--------+---------+ + + + | 10/03/ | Office | Neurology | Fabián Carias MD | | | 2019 | Visit | | [address] | | | | | | [place] | | | | | | [address] | | | | | | | [...] | | | care | | | Site Physician-C | | | | | | | [...] | | | care | | | Site Physician-C | | | | | | | [...] | | | care | | | Site Physician-C | | | | | | | [...] | | | care | | | Site Physician-C | | | | | | | [...]
--- OUTSIDE RECORDS SUMMARY | ~2019-02-17 | XMS | Encounter Summary ---
Demographics + + + | Address | [address] | | | [place] [address] | + + + | Home Phone [...] Team Providers + +------+ + | Care Spring 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 Name | Role | Phone | + +------+ + | Horacio Silvestre DO | PCP | | + +------+ + Reason for Visit +--------+ + | Reason | Comments | +--------+ + | Other | Request to Change Providers | +--------+ + Encounter Details +--------+ + + + + | Date | Type | Department | Care Team | Description | +--------+ + + + + | 10/01/ | Telephone | [facility] | Horacio Silvestre, | Other (Request to | | 2017 | | [facility] | [address] | Change Providers) | | | | [facility] | [facility], [place] | | | | | [address] [place] [address], | [address] | | | | | [place] [address] | [phone] | | | | | [phone] | | | +--------+ + + + [...] [place] | | | | | | [address] | | | | | | [phone] | | | | | | | | +--------+---------+ + + + | 02/26/ | Office | Urology | Lillie Fowler | | | 2018 | Visit | | LILLIE Lopez [address] | | | | | | [address] | | | | | | [place], [place] | | | | | | [address] | | | | | | [phone] | | | | | | | | +--------+---------+ + + + | 03/16/ | Office | Neurology | Theresa, | | | 2018 | Visit | | [address] | | | | | [address] [place], | | | | | | [place] [address] | | | | | | [phone] | | | | | | | | +--------+---------+ + + + | 04/12/ | Office | Primary Care | Massimo Ramos | | | 2019 | Visit | | MD Fer [address] | | | | | | [address] [place] | | | | | | [address] | | | | | | | | +--------+---------+ + + + | 10/03/ | Office | Neurology | Fabián Carias MD | | | 2019 | Visit | | [address] | | | | | | [place] | | | | | | [address] | | | | | | | [...] | | | care | | | Computer Graphic Designer-C | | | | | | | [...] | | | care | | | Computer Graphic Designer-C | | | | | | | [...] | | | care | | | Computer Graphic Designer-C | | | | | | | [...] | | | care | | | Computer Graphic Designer-C | | | | | | | linical | + +--------+ +---+-----+ + + + | Note: Pt will | | check CBG's daily x1 | | Pt will take Lantis as | | prescribed | + + documented as of this encounter Visit Diagnoses Not on filedocumented in this encounter"
--- OUTSIDE RECORDS SUMMARY | ~2019-02-17 | XMS | Encounter Summary ---
Demographics + + + | Address | [address] | | | [place] [address] | + + + | Home Phone | | + + + | Preferred Language | Unknown | + + + | Marital Status | | + + + | Moravian Affiliation | 1025 | + + + | Race | Unknown | + + + | Ethnic Group | Unknown | + + + Author + + + | Author | [facility] | | | and [place] | + + + | Organization | [facility] | | | [...] Team Providers + +------+ + | Care Kaiako Kura [place] Maori Name | Role | Phone | + +------+ + | Ryan Gutiérrez MD | PCP | | + +------+ + Encounter Details +--------+ + + + + | Date | Type | Department | Care Team | Description | +--------+ + + + + | 01/15/ | Hospital | [facility] | Yuli Sanford | | | 2017 | Encounter | [facility] | Shivani CARBON FURNACE OPERATOR HELPER [address] | | | | | CENTER [address] | [place] | | | | | [place] | [address] | | | | | [address] | | | | | | [phone] | | | +--------+ + + + [...] [place] | | | | | | [address] | | | | | | [phone] | | | | | | | | +--------+---------+ + + + | 02/26/ | Office | Urology | Lillie Fowler | | | 2018 | Visit | | [address] | | | | | | [address] | | | | | | [place], [place] | | | | | | [address] | | | | | | [phone] | | | | | | | | +--------+---------+ + + + | 03/16/ | Office | Neurology | Theresa, | | | 2018 | Visit | | [address] | | | | | [address] [place], | | | | | | [place] [address] | | | | | | [phone] | | | | | | | [...] [place] | | | | | | [address] | | | | | | | [...] | | | care | | | Field Sales Manager-C | | | | | | [...] | | | care | | | Field Sales Manager-C | | | | | | [...] | | | care | | | Field Sales Manager-C | | | | | | [...] | | | care | | | Field Sales Manager-C | | | | | | [...] + | POC GLUCOSE, | Routin | 01/15/2017 | | Results for this | | RAPIDPOINT | e | 5:14 PM | | procedure are in the | | | | PDT | | results section. | + +--------+ + + + | LACTIC ACID | STAT | 01/15/2017 | | Results for this | | | | 1:33 PM | | procedure are in the | | | | PDT | | results section. | + +--------+ + + + | URINALYSIS WITH | STAT | 01/15/2017 | | Results for this | | MICROSCOPIC WITH | | 1:32 PM | | procedure are in the | | CULTURE IF INDICATED | | PDT | | results section. | + +--------+ + + + | B TYPE NATRIURETIC | Routin | 01/15/2017 | | Results for this | | PEPTIDE | e | 1:32 PM | | procedure are in the | | | | PDT | | results section. | + +--------+ + + + | CBC W/AUTO | STAT | 01/15/2017 | | Results for this | | DIFFERENTIAL | | 1:06 PM | | procedure are in the | | | | PDT | | results section. | + +--------+ + + + | TROPONIN I | STAT | 01/15/2017 | | Results for this | | | | 1:06 PM | | procedure are in the | | | | PDT | | results section. | + +--------+ + + + | BASIC METABOLIC | STAT | 01/15/2017 | | Results for this | | PANEL | | 1:06 PM | | procedure are in the | | | | PDT | | results section. | + +--------+ + + + | XR CHEST PA OR AP | Routin | 01/15/2017 | | Results for this | | | e | 12:37 PM | | procedure are in the | | | | PDT | | results section. | + +--------+ + + + documented in this encounter Results POC Glucose, Rapidpoint (01/15/2017 5:14 PM PDT) + +-------+ + + + | Component | Value | Ref Range | Performed | Pathologist | | | | | At | Signature | + +-------+ + + + | Glucose, | 98 | 70 - 110 mg/dL | EXTERNAL [...] | + +---------+ + + Lactic Acid (01/15/2017 1:33 PM PDT) + +-------+ + + + | Component | Value | Ref Range | Performed | Pathologist | | | | | At | Signature | + +-------+ + + + | Lactate, | 1.4 | 0.4 - 2.1 | EXTERNAL | [...] Urinalysis with Microscopic with Culture if Indicated (01/15/2017 1:32 PM PDT) + + + + + [...] + + + + | Specific | 1.01 | 1.005 - 1.030 | EXTERNAL | | | [place], | | | LAB | | | Urine | | | | | + + + + + + | pH, Urine | 8 | 5.0 - 7.0 pH | EXTERNAL [...] + + + | Blood, | 10 | NEGATIVE /uL | EXTERNAL | | [...] +---------+ + + B Type Natriuretic Peptide (01/15/2017 1:32 PM PDT) + +-------+ + + + | Component | Value | Ref Range | Performed | Pathologist | | | | | At | Signature | + +-------+ + + + | NT-proBNP | 108 | <=450 pg/mL | EXTERNAL | | | | [...] | + +---------+ + + Troponin I (01/15/2017 1:06 PM PDT) + +-------+ + + + [...] + +---------+ + + Basic Metabolic Panel (01/15/2017 1:06 PM PDT) + +-------+ + + + [...] +-------+ + + + | Cl | 103 | 95 - 108 mmol/L | EXTERNAL | | | | | | LAB | | + +-------+ + + + | CO2 | 26 | 23 - 34 mmol/L | EXTERNAL | | | | | | LAB | | + +-------+ + + + | Anion Gap | 8 | 7 - 16 | EXTERNAL | | | | | | LAB | | + +-------+ + + + | Calcium | 9 | 8.3 - 10.0 | EXTERNAL | | | | | mg/dL | LAB | | + +-------+ + + + | Glucose | 106 | 70 - 110 mg/dL | EXTERNAL | | | | | | LAB | | + +-------+ + + + | BUN, Bld | 18 | 5 - 26 mg/dL | EXTERNAL | | | | | | LAB | | + +-------+ + + + | Creatinine | 1.19 | 0.70 - 1.40 | EXTERNAL | | | | | mg/dL | LAB | | + +-------+ + + + | BUN/Creatin | 15.1 | 7.0 - 24.0 | EXTERNAL | [...] +---------+ + + CBC w/ Auto Differential (01/15/2017 1:06 PM PDT) + +-------+ + + + | Component | Value | Ref Range | Performed | Pathologist | | | | | At | Signature | + +-------+ + + + | WBC | 20.8 | 4.6 - 10.5 | EXTERNAL | | | | | 1000/mm3 | LAB | | + +-------+ + + + | RBC | 4.96 | 4.36 - 5.83 | EXTERNAL | | | | | mil/mm3 | LAB | | + +-------+ + + + | HGB, | 14.8 | 13.1 - 17.4 | EXTERNAL | | | External | | g/dL | LAB | | + +-------+ + + + | HCT, | 44 | 39.0 - 51.9 % | EXTERNAL | | | External | | | LAB | | + +-------+ + + + | MCV | 89 | 82 - 96 fl | EXTERNAL | | | | | | LAB | | + +-------+ + + + | MCH | 29.8 | 27.7 - 32.3 pg | EXTERNAL | | | | | | LAB | | + +-------+ + + + | MCHC | 33.6 | 32.0 - 36.9 | EXTERNAL | | | | | g/dL | LAB | | + +-------+ + + + | RDW-CV | 15.5 | <=17.0 % | EXTERNAL | | | | | | LAB | | + +-------+ + + + | RDW-SD | 49.8 | 34.0 - 57.0 fL | EXTERNAL | | | | | | LAB | | + +-------+ + + + | Platelet | 161 | 150 - 450 | EXTERNAL | | | Count | | 1000/mm3 | LAB | | | Plasma | | | | | + +-------+ + + + | MPV | 12.8 | 9.4 - 12.4 FL | EXTERNAL | | | | | | LAB | | + +-------+ + + + | % Segmented | 85.5 | 42.0 - 76.0 % | EXTERNAL | | | | | | LAB | | | Neutrophils | | | | | + +-------+ + + + | % | 5.9 | 20.0 - 40.0 % | EXTERNAL | | | Lymphocytes | | | LAB | | + +-------+ + + + | % Monocytes | 6.5 | 3.0 - 13.0 % | EXTERNAL | | | | | | LAB | | + +-------+ + + + | % | 0.9 | 0.0 - 7.0 % | EXTERNAL | | | Eosinophils | | | LAB | | + +-------+ + + + | % Basophils | 0.3 | 0.0 - 2.0 % | EXTERNAL | | | | | | LAB | | + +-------+ + + + | % Immature | 0.9 | 0.0 - 0.5 % | EXTERNAL | | | Granulocyte | | | LAB | | | s | | | | | + +-------+ + + + | % nRBC | 0 | 0.0 - 0.2 /100 | EXTERNAL | | | | | WBC | LAB | | + +-------+ + + + | Absolute | 17.82 | 2.80 - 7.70 | EXTERNAL | | | Neutrophils | | 1000/mm3 | LAB | | + +-------+ + + + | Absolute | 1.23 | 1.20 - 3.30 | EXTERNAL | | | Lymphocytes | | 1000/mm3 | LAB | | + +-------+ + + + | Absolute | 1.35 | 0.00 - 0.80 | EXTERNAL | | | Monocytes | | 1000/mm3 | LAB | | + +-------+ + + + | Absolute | 0.18 | 0.00 - 0.70 | EXTERNAL | | | Eosinophils | | 1000/mm3 | LAB | | + +-------+ + + + | Absolute | 0.07 | 0.00 - 0.20 | EXTERNAL | | | Basophils | | 1000/mm3 | LAB | | + +-------+ + + + | Absolute | 0.18 | 0.00 - 0.15 | EXTERNAL | [...] | | | + +---------+ + + XR Chest PA or AP (01/15/2017 12:37 PM PDT) + + | Specimen | + + | | + + + + + | Narrative | Performed At | + + + | EXAMINATION: CHEST 1 VIEW HISTORY: Chest pain and nausea | | | COMPARISON STUDY: December 25, 2016 FINDINGS: The lungs are | | | well ventilated. Increased streaky left basilar airspace opacity. | | | No pleural effusion. No pneumothorax. Cardiomediastinal | | | silhouette is normal. No acute osseous process. IMPRESSION: | | | Query left basilar pneumonia. JOB #: [id number] Digitally Released | | | by: Massimo Nunez Read By: MASSIMO NUNEZ MD Date: | | | 01/15/2017 13:45 | | + + + + + | Procedure Note | + + | Osito, Rad Results In - 04/18/2017 9:00 AM PST EXAMINATION: | | CHEST 1 VIEW | | | | HISTORY: | | Chest pain and nausea | | | | COMPARISON STUDY: | | December 25, 2016 | | | | FINDINGS: | | The lungs are well ventilated. Increased streaky left basilar airspace | | opacity. No pleural effusion. No pneumothorax. Cardiomediastinal silhouette | | is normal. No acute osseous process. | | | | IMPRESSION: | | Query left basilar pneumonia. | | | | | | JOB #: [id number] | | Digitally Released by: Msasimo Nunez | | | | | | Read By: MASSIMO NUNEZ MD | | Date: 01/15/2017 13:45 | | | + + documented in this encounter Visit Diagnoses Not on filedocumented in this encounter"
--- OUTSIDE RECORDS SUMMARY | ~2019-02-17 | XMS | Encounter Summary ---
Demographics + + + | Address | [address] | | | [place] [address] | + + + | Home Phone | | + + + | Preferred Language | Unknown | + + + | Marital Status | | + + + | Sikh Affiliation | 1025 | + + + | Race | Unknown | + + + | Ethnic Group | Unknown | + + + Author + + + | Author | [facility] | | | and [place] | + + + | Organization | [facility] | | | and [place] | + + + | Address | Unknown | + + + | Phone | Unavailable | + + + Support + + +---------+ + | Name | Relationship | Address | Phone | + + +---------+ + | Elal Mcfadden | ECON | Unknown | | + + +---------+ + | Juan Gill | ECON | Unknown | | + + +---------+ + Care Team Providers + +------+ + | Care Public Affairs Manager Name | Role | Phone | [...] | [address] [place], [place] | [place] [address] | | | | | [address] | [phone] | | | | | [phone] | | | +--------+ + + + [...] [place] | | | | | | [address] | | | | | | [phone] | | | | | | | | +--------+---------+ + + + | 02/26/ | Office | Urology | Lillie Fowler | | | 2018 | Visit | | [address]IE [address] | | | | | | [address] | | | | | | [place] | | | | | | [address] | | | | | | [phone] | | | | | | | | +--------+---------+ + + + | 03/16/ | Office | Neurology | Theresa, | | | 2018 | Visit | | [address] | | | | | [address] [place], | | | | | | [place] [address] | | | | | | [phone] | | | | | | | | +--------+---------+ + + + | 04/12/ | Office | Primary Care | Massimo Ramos | | | 2019 | Visit | | MD Fer [address] | | | | | | [place] | | | | | | [address] | | | | | | | | +--------+---------+ + + + | 10/03/ | Office | Neurology | Fabián Carias MD | | | 2019 | Visit | | [address] | | | | | | [place] | | | | | | [address] | | | | | | | [...] | | | care | | | Cleaner Industrial-C | | | | | | | [...] | | | care | | | Cleaner Industrial-C | | | | | | | [...] | | | care | | | Cleaner Industrial-C | | | | | | | [...] | | | care | | | Cleaner Industrial-C | | | | | | | [...] - 1.030 | EXTERNAL | | | [place], | | | LAB | | | [...] D: | | | 08/18/2015 JOB #: [id number] Read By: DREW Fung | | | [...] mucinous neoplasm. D: | | 08/18/2015JOB #: [id number] Read By: DREW GARZA MD Released By: [...] | | | | | |JOB #: [id number] | | | | | |Read By: DREW GARZA MD | | | |Released By: DREW GARZA MD | |Date: 08/18/2015 21:02 | | | | | + + documented in this encounter Visit Diagnoses Not on filedocumented in this encounter"
--- OUTSIDE RECORDS SUMMARY | ~2019-02-17 | XMS | Encounter Summary ---
Demographics + + + | Address | [address] | | | [place] [address] | + + + | Home Phone | | + + + | Preferred Language | Unknown | + + + | Marital Status | | + + + | Mandaeism Affiliation | 1025 | + + + | Race | Unknown | + + + | Ethnic Group | Unknown | + + + Author + + + | Author | [facility] | | | and [place] | + + + | Organization | [facility] | | [...] Team Providers + +------+ + | Care Aquatics Director Name | Role | Phone | [...] Description | +--------+--------+ + + + | 01/22/ | Refill | [place] [facility] | Horacio Silvestre, | Medication Refill | | 2017 | | [facility] | DO [address] | | | | | [facility] [address] | [facility], [place] | | | | | [address] [place], | [address] | | | | | [place] [address] | [phone] | | | | | [phone] | | | +--------+--------+ + + + [...] [place] | | | | | | [address] | | | | | | [phone] | | | | | | | | +--------+---------+ + + + | 02/26/ | Office | Urology | Lillie Fowler | | | 2018 | Visit | | [address] | | | | | | [address] | | | | | | [place], [place] | | | | | | [address] | | | | | | [phone] | | | | | | | | +--------+---------+ + + + | 03/16/ | Office | Neurology | Theresa, | | | 2018 | Visit | | [address] | | | | | | [address] [place], | | | | | | [place] [address] | | | | | | [phone] | | | | | | | | +--------+---------+ + + + | 04/12/ | Office | Primary Care | Massimo Ramos | | | 2019 | Visit | | MD Fer [address] | | | | | | [place] | | | | | | [address] | | | | | | | | +--------+---------+ + + + | 10/03/ | Office | Neurology | Fabián Carias MD | | | 2019 | Visit | | [address] | | | | | | [place] | | | | | | [address] | | | | | | | [...] | | Charlnie Dos Santos, | | dehydration | | complex | | | Case | | | | care | | | Guest House Manager-C | | | | | | [...] | | | care | | | Guest House Manager-C | | | | | | [...] | | | care | | | Guest House Manager-C | | | | | | [...] | | | care | | | Guest House Manager-C | | | | | | | linical | + +--------+ +---+-----+ + + + | Note: Pt will | | check CBG's daily x1 | | Pt will take Lantis as | | prescribed | + + documented as of this encounter Visit Diagnoses Not on filedocumented in this encounter"
--- OUTSIDE RECORDS SUMMARY | ~2019-02-17 | XMS | Encounter Summary ---
Demographics + + + | Address | [address] | | | [place] [address] | + + + | Home Phone | | + + + | Preferred Language | Unknown | + + + | Marital Status | | + + + | Synagogue Affiliation | 1025 | + + + [...] Team Providers + +------+ + | Care Tube Room Cashier Name | Role | Phone | + +------+ + | Ryan Gutiérrez MD | PCP | | + +------+ + Reason for Visit + + + | Reason | Comments | + + + | Numbness | fingers of both hands, here for EMG | + + + Service/Procedure (Routine) +--------+--------+ + + + + | Status | Reason | Specialty | Diagnoses / | Referred By | Referred To | | | | | Procedures | Contact | Contact | +--------+--------+ + + + + | Closed | | Physical | Diagnoses | | Ismael, | | | | Medicine and | Disturbance | Ismael, | Mor Khan MD | | | | Rehabilitatio | of skin | Mor Khan MD | [address] | | | | n | sensation | [address] | [place] | | | | | Procedures | [place] | [place], [place] | | | | | [facility] | [place], [place] | [address] Phone: | | | | | &/SENS 1-2 | [id number] | [phone] | | | | | NRV CNDJ | Phone: | Fax: | | | | | PRECONF | [phone] | [phone] | | | | | [place]B | Fax: | | | | | | [facility] NEEDLE | [phone] | | | | | | EMG EA | | | | | | | EXTREMITY | | | | | | | W/PARASPINL | | | | | | | AREA LIMITED | | | | | | | UT EMG, | | | | | | | NEEDLE, TWO | | | | | | | LIMBS [facility] | | | | | | | MOTOR &/SENS | | | | | | | 9-10 NRV | | | | | | | CNDJ PRECONF | | | | | | | [place]TR[place]DE | | | | | | | LIMB [facility] | | | | | | | NEEDLE EMG | | | | | | | EA EXTREMTY | | | | | | | W/PARASPINL | | | | | | | AREA | | | | | | | COMPLETE | | | +--------+--------+ + + + + Encounter Details +--------+ + + + + | Date | Type | Department | Care Team | Description | +--------+ + + + + | 05/31/ | Procedure | [facility] | Mor Guevara | Carpal tunnel | | 2013 | visit | PHYSIATRY [address] | syndrome, bilateral | | | | [place], | [place] | (Primary Dx); DDD | | | | [place] [address] | [address] | (degenerative disc | | | | [phone] | | disease), cervical; | | | | | | Paresthesias - both | | | | | | hands; Neck pain, | | | | | | chronic | +--------+ + + + + Social [...] + + + | Blood Pressure | 140/88 | 05/31/2013 9:05 AM | | | | | PST | | + + + + + | Pulse | 68 | 05/31/2013 9:05 AM | | | | | PST | | + + + + + | Temperature | - | - | | + + + + + | Respiratory Rate | - | - | | + + + + + | Oxygen Saturation | - | - | | + + + + + | Inhaled Oxygen | - | - | | | Concentration | | | | + + + + + | Weight | 90.3 kg (199 lb) | 05/31/2013 9:05 AM | | | | | PST | | + + + + + | Height | 167.6 cm (5' 6") | 05/31/2013 9:05 AM | | | | | PST | | + + + + + | Body Mass Index | 32.12 | 05/31/2013 9:05 AM | | | | | PST | | + + + + + documented in this encounter Progress Notes Mor Guevara MD - 05/31/2013 12:24 PM PST [facility] Musculoskeletal, Sports [facility] Spine, Physiatry [facility] [address] [place] [address] Test Date: 05/31/2013 Patient Name: Geraldo Mcfadden : 1940 Physician: Mor Guevara MD MR #: [id number] Sex: Male Referring Physician: HISTORY: The patient is a very pleasant 72 year-old male who is being seen today for elect rodiagnostic evaluation of bilateral upper extremities for bilateral hand paresthesias. The numbness affects mostly the 2nd and 3rd digits but other fingers can be involved. He does have some neck issues including moderate central canal stenosis. The pictures are not the g reatest as there was some motion artifact but it does not appear to me that there is high gr yoselin impingement on the nerves at any level. The patient denies any history of diabetes but he states that he is "on the verge." He does have a history of hypothyroidism. He denies an y history of alcoholism or cancer other than a skin cancer. Nerve Conduction Studies Anti Sensory Summary Table Site NR Peak (ms) Norm Peak (ms) P-T Amp (V) Norm P-T Amp Site1 Site2 Delta-P (ms) Dist (cm) Edi (m/s) Norm Edi (m/s) Left Radial Anti Sensory (Base 1st Digit) Wrist 2.6 <3.1 26.3 Wrist Base 1st Digit 2.6 0.0 Right Radial Anti Sensory (Base 1st Digit) Wrist 2.7 <3.1 14.6 Wrist Base 1st Digit 2.7 0.0 Motor Summary Table Site NR Onset (ms) Norm Onset (ms) O-P Amp (mV) Norm O-P Amp Site1 Site2 Delta-0 (ms) Dist (cm) Edi (m/s) Norm Edi (m/s) Left Median Motor (Abd Poll Brev) Wrist *4.5 <4.2 *3.0 >5 Elbow Wrist 3.9 20.0 51 >50 Elbow 8.4 2.6 Right Median Motor (Abd Poll Brev) Wrist *4.4 <4.2 *2.9 >5 Elbow Wrist 5.8 22.0 *38 >50 Elbow 10.2 2.1 Left Ulnar Motor (Abd Dig Minimi) Wrist 2.9 <4.2 6.2 >3 B Elbow Wrist 3.8 20.0 53 >53 B Elbow 6.7 6.0 A Elbow B Elbow 1.8 10.0 56 >53 A Elbow 8.5 6.2 Right Ulnar Motor (Abd Dig Minimi) Wrist 3.3 <4.2 6.3 >3 B Elbow Wrist 3.8 20.0 53 >53 B Elbow 7.1 6.5 A Elbow B Elbow 1.8 10.0 56 >53 A Elbow 8.9 6.4 Comparison Summary Table Site NR Peak (ms) Norm Peak (ms) P-T Amp (V) Site1 Site2 Delta-P (ms) Norm Delta (ms) Left Median/Ulnar Palm Comparison (Wrist - 8cm) Median Palm *2.5 <2.2 17.7 Median Palm Ulnar Palm *0.7 <0.3 Ulnar Palm 1.8 <2.2 12.3 Right Median/Ulnar Palm Comparison (Wrist - 8cm) Median Palm *2.6 <2.2 19.0 Median Palm Ulnar Palm *0.4 <0.3 Ulnar Palm 2.2 <2.2 4.1 EMG Side Muscle Nerve Root Ins Act Fibs Psw Amp Dur Poly Recrt Int Pat Comment Right Deltoid Axillary C5-6 Nml Nml Nml Nml Nml 0 Nml Nml Right Biceps Musculocut C5-6 Nml Nml Nml Nml Nml 0 Nml Nml Right Triceps Radial C6-7-8 Nml Nml Nml Nml Nml 0 Nml Nml Right PronatorTeres Median C6-7 Nml Nml Nml Nml Nml 0 Nml Nml Right 1stDorInt Ulnar C8-T1 Nml Nml Nml Nml Nml 0 Nml Nml Left Deltoid Axillary C5-6 Nml Nml Nml Nml Nml 0 Nml Nml Left Biceps Musculocut C5-6 Nml Nml Nml Nml Nml 0 Nml Nml Left Triceps Radial C6-7-8 Nml Nml Nml Nml Nml 0 Nml Nml Left PronatorTeres Median C6-7 Nml Nml Nml Nml Nml 0 Nml Nml Left 1stDorInt Ulnar C8-T1 Nml Nml Nml Nml Nml 0 Nml Nml Nerve Conduction Studies Motor Left/Right Comparison Site L Lat (ms) R Lat (ms) L-R Lat (ms) L Amp (mV) R Amp (mV) L-R Amp (%) Site1 Site2 L Ve l (m/s) R Edi (m/s) L-R Edi (m/s) Median Motor (Abd Poll Brev) Wrist *4.5 *4.4 0.1 *3.0 *2.9 3.3 Elbow Wrist 51 *38 *13 Elbow 8.4 10.2 1.8 2.6 2.1 19.2 Ulnar Motor (Abd Dig Minimi) Wrist 2.9 3.3 0.4 6.2 6.3 1.6 B Elbow Wrist 53 53 0 B Elbow 6.7 7.1 0.4 6.0 6.5 7.7 A Elbow B Elbow 56 56 0 A Elbow 8.5 8.9 0.4 6.2 6.4 3.1 Anti Sensory Left/Right Comparison Site L Lat (ms) R Lat (ms) L-R Lat (ms) L Amp (V) R Amp (V) L-R Amp (%) Site1 Site2 L Edi (m/s) R Edi (m/s) L-R Edi (m/s) Radial Anti Sensory (Base 1st Digit) Wrist 2.6 2.7 0.1 26.3 14.6 44.5 Wrist Base 1st Digit Comparison Left/Right Comparison Site L Lat (ms) R Lat (ms) L-R Lat (ms) L Amp (V) R Amp (V) L-R Amp (%) Median/Ulnar Palm Comparison (Wrist - 8cm) Median Palm *2.5 *2.6 0.1 17.7 19.0 6.8 Ulnar Palm 1.8 2.2 0.4 12.3 4.1 66.7 NCV FINDINGS: Evaluation of the Left median motor nerve showed prolonged distal onset latency and reduced amplitude. The Right median motor nerve showed prolonged distal onset latency, reduced amp litude, and decreased conduction velocity (Elbow-Wrist). The Left median/ulnar (palm) ana rison and the Right median/ulnar (palm) comparison nerves showed prolonged distal peak laten cy (Median Palm) and abnormal peak latency difference (Median Palm-Ulnar Palm). All remaini ng nerves (as indicated in the preceding tables) were within normal limits. EMG FINDINGS: All examined muscles (as indicated in the preceding table) showed no evidence of electrical instability. IMPRESSION: There is electrodiagnostic evidence of median neuropathy at the wrists bilaterally. This i s consistent with a clinical diagnosis of carpal tunnel syndrome. The severity would be con sidered moderate bilaterally, although the loss of amplitude is somewhat greater than would be expected given the degree of slowing seen. There was no electrodiagnostic evidence of ulnar neuropathy, peripheral neuropathy or cervi madhu radiculopathy. 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 The patient will be starting PT for his neck this week and was also encouraged to use carpa l tunnel splints at night. If his hand symptoms do not improve he would be a potential cand idate for carpal tunnel release. Thank you for allowing me to perform neurodiagnostic testing on your patient. If you have a ny further questions or comments, please do not hesitate to call. Mor Guevara MD Fellow, [employer]. documented in th is encounter Plan of [...] [place] | | | | | | [address] | | | | | | [phone] | | | | | | | | +--------+---------+ + + + | 02/26/ | Office | Urology | Lillie Fowler | | | 2018 | Visit | | LILLIE Lopez [address] | [address] | | [address] | | | | | | [place], [place] | | | | | | [address] | | | | | | [phone] | | | | | | | | +--------+---------+ + + + | 03/16/ | Office | Neurology | Theresa, | | | 2018 | Visit | | SHONDA Mckinney [address] | [address] [place], | | | | | | [place] [address] | | | | | | [phone] | | | | | | | | +--------+---------+ + + + | 04/12/ | Office | Primary Care | Massimo Ramos | | | 2019 | Visit | | MD Fer [address] | | | | | | [place] | | | | | | [address] | | | | | | | | +--------+---------+ + + + | 10/03/ | Office | Neurology | Fabián Carias MD | | | 2019 | Visit | | [address] | | | | | | [place] | | | | | | [address] | | | | | | | [...] | | | care | | | Hearing Stenographer-C | | | | | | | [...] | | | care | | | Hearing Stenographer-C | | | | | | | [...] | | | care | | | Hearing Stenographer-C | | | | | | | [...] | | | care | | | Hearing Stenographer-C | | | | | | | linical | + +--------+ +---+-----+ + + + | Note: Pt will | | check CBG's daily x1 | | Pt will take Lantis as | | prescribed | + + documented as of this encounter Visit Diagnoses + + | Diagnosis | + + | Carpal tunnel syndrome, bilateral - Primary Carpal tunnel syndrome | + + | DDD (degenerative disc disease), cervical Degeneration of cervical intervertebral | | disc | + + | Paresthesias - both hands Disturbance of skin sensation | + + | Neck pain, chronic Cervicalgia | + + documented in this encounter
--- OUTSIDE RECORDS SUMMARY | ~2019-02-17 | XMS | Encounter Summary ---
Demographics + + + | Address | [address] | | | [place] [address] | + + + | Home Phone | | + + + | Preferred Language | Unknown | + + + | Marital Status | | + + + | Jehovah'S Witness Affiliation | 1025 | + + + | Race | Unknown | + + + | Ethnic Group | Unknown | + + + Author + + + | Author | [facility] | | | and [place] | + + + | Organization | [facility] | | [...] Team Providers + +------+ + | Care Unit Leader Name | Role | Phone | + +------+ + | Ryan Gutiérrez MD | PCP | | + +------+ + Encounter Details +--------+ + + + + | Date | Type | Department | Care Team | Description | +--------+ + + + + | 04/10/ | Hospital | [facility] [place] | | | 2016 | Encounter | [facility] | [address] | | | | | [address] | [place], | | | | | [address] [place] | [place] [address] | | | | | [address] | [phone] | | | | | [phone] | | | +--------+ + + + [...] [place] | | | | | | [address] | | | | | | [phone] | | | | | | | | +--------+---------+ + + + | 02/26/ | Office | Urology | Lillie Fowler | | | 2018 | Visit | | LILLIE Lopez [address] | | | | | | [address] | | | | | | [place] | | | | | | [address] | | | | | | [phone] | | | | | | | | +--------+---------+ + + + | 03/16/ | Office | Neurology | Theresa, | | | 2018 | Visit | | [address] | | | | | [address] [place], | | | | | | [place] [address] | | | | | | [phone] | | | | | | | | +--------+---------+ + + + | 04/12/ | Office | Primary Care | Massimo Ramos | | | 2019 | Visit | | MD [address] | | | | | | [place] | | | | | | [address] | | | | | | | | +--------+---------+ + + + | 10/03/ | Office | Neurology | Fabián Carias MD | | | 2019 | Visit | | [address] | | | | | | [place] | | | | | | [address] | | | | | | | [...] | | | care | | | Erp Technical Lead-C | | | | | | | [...] | | | care | | | Erp Technical Lead-C | | | | | | | [...] | | | care | | | Erp Technical Lead-C | | | | | | | [...] | | | care | | | Erp Technical Lead-C | | | | | | | [...] | + +--------+ + + + | PTT | STAT | 04/10/2015 | | Results for this | | | | 10:01 AM | | procedure are in the | | | | PST | | results section. | + +--------+ + + + | PROTIME INR | STAT | 04/10/2015 | | Results for this | | | | 10:01 AM | | procedure are in the | | | | PST | | results section. | + +--------+ + + + | POC GLUCOSE, | Routin | 04/10/2015 | | Results for this | | RAPIDPOINT | e | 9:38 AM | | procedure are in the | | | | PST | | results section. | + +--------+ + + + | TSH | STAT | 04/10/2015 | | Results for this | | | | 8:31 AM | | procedure are in the | | | | PST | | results section. | + +--------+ + + + | TROPONIN I | STAT | 04/10/2015 | | Results for this | | | | 8:29 AM | | procedure are in the | | | | PST | | results section. | + +--------+ + + + | CBC WITH MANUAL | STAT | 04/10/2015 | | Results for this | | DIFFERENTIAL | | 6:11 AM | | procedure are in the | | | | PST | | results section. | + +--------+ + + + | D-DIMER,QUANTITATIVE | STAT | 04/10/2015 | | Results for this | | (AMARO) | | 6:11 AM | | procedure are in the | | | | PST | | results section. | + +--------+ + + + | TROPONIN I | STAT | 04/10/2015 | | Results for this | | | | 6:11 AM | | procedure are in the | | | | PST | | results section. | + +--------+ + + + | TSH | STAT | 04/10/2015 | | Results for this | | | | 6:11 AM | | procedure are in the | | | | PST | | results section. | + +--------+ + + + | B TYPE NATRIURETIC | STAT | 04/10/2015 | | Results for this | | PEPTIDE | | 6:11 AM | | procedure are in the | | | | PST | | results section. | + +--------+ + + + | BASIC METABOLIC | STAT | 04/10/2015 | | Results for this | | PANEL | | 6:11 AM | | procedure are in the | | | | PST | | results section. | + +--------+ + + + | CT ANGIOGRAM CHEST W | Routin | 04/10/2015 | | Results for this | | CONTRAST | e | 6:02 AM | | procedure are in the | | | | PST | | results section. | + +--------+ + + + | CT HEAD WO CONTRAST | Routin | 04/10/2015 | | Results for this | | | e | 6:02 AM | | procedure are in the | | | | PST | | results section. | + +--------+ + + + | XR CHEST PA OR AP | Routin | 04/10/2015 | | Results for this | | | e | 6:02 AM | | procedure are in the | | | | PST | | results section. | + +--------+ + + + documented in this encounter Results PTT (04/10/2015 10:01 AM PST) + +-------+ + + + | Component | Value | Ref Range | Performed | Pathologist | | | | | At | Signature | + +-------+ + + + | PTT | 31 | 25 - 35 SEC | EXTERNAL | | | | | | LAB | | + +-------+ + + + + + | Specimen | + + | | + + + +---------+ + + | Performing | Address | City/State/Zipcode | Phone Number | | Organization | | | | + +---------+ + + | EXTERNAL LAB | | | | + +---------+ + + Protime INR (04/10/2015 10:01 AM PST) + +-------+ + + + | Component | Value | Ref Range | Performed | Pathologist | | | | | At | Signature | + +-------+ + + + | Prothrombin | 13.9 | 11.2 - 13.7 SEC | EXTERNAL | | | Time | | | LAB | | + +-------+ + + + | INR | 1.13 | | EXTERNAL | | | | [...] +---------+ + + POC Glucose, Rapidpoint (04/10/2015 9:38 AM PST) + +-------+ + + + | Component | Value | Ref Range | Performed | Pathologist | | | | | At | Signature | + +-------+ + + + | Glucose, | 126 | 70 - 110 mg/dL | EXTERNAL [...] | + +---------+ + + TSH (04/10/2015 8:31 AM PST) + + + + + + | Component | Value | Ref Range | Performed | Pathologist | | | | | At | Signature | + + + + + + | TSH | 8.28Comment: Test | 0.40 - 4.68 | EXTERNAL | | | | performed at [facility] | mIU/L | LAB | | | | Laboratory Reference | | | | | | Range = 0.270 - 4.20 | | | | + + + + + + + + | Specimen | + + | | + + + +---------+ + + | Performing | Address | City/State/Zipcode | Phone Number | | Organization | | | | + +---------+ + + | EXTERNAL LAB | | | | + +---------+ + + Troponin I (04/10/2015 8:29 AM PST) + +-------+ + + + [...] | | + +---------+ + + CBC with Manual Differential (04/10/2015 6:11 AM PST) + +---------+ + + + | Component | Value | Ref Range | Performed | Pathologist | | | | | At | Signature | + +---------+ + + + | WBC | 12.5 | 4.6 - 10.5 | EXTERNAL | | | | | 1000/mm3 | LAB | | + +---------+ + + + | RBC | 4.91 | 4.36 - 5.83 | EXTERNAL | | | | | mil/mm3 | LAB | | + +---------+ + + + | HGB, | 14.8 | 13.1 - 17.4 | EXTERNAL | | | External | | g/dL | LAB | | + +---------+ + + + | HCT, | 44.1 | 39.0 - 51.9 % | EXTERNAL | | | External | | | LAB | | + +---------+ + + + | MCV | 90 | 82 - 96 fl | EXTERNAL | | | | | | LAB | | + +---------+ + + + | MCH | 30.1 | 27.7 - 32.3 pg | EXTERNAL | | | | | | LAB | | + +---------+ + + + | MCHC | 33.6 | 32.0 - 36.9 | EXTERNAL | | | | | g/dL | LAB | | + +---------+ + + + | RDW-CV | 14.3 | <=17.0 % | EXTERNAL | | | | | | LAB | | + +---------+ + + + | RDW-SD | 46.4 | 34.0 - 57.0 fL | EXTERNAL | | | | | | LAB | | + +---------+ + + + | Platelet | 187 | 150 - 450 | EXTERNAL | | | Count | | 1000/mm3 | LAB | | | Plasma | | | | | + +---------+ + + + | MPV | 10.6 | 9.4 - 12.4 FL | EXTERNAL | | | | | | LAB | | + +---------+ + + + | % Segmented | 67 | 42 - 76 % | EXTERNAL | | | | | | LAB | | | Neutrophils | | | | | + +---------+ + + + | % Bands | 5 | <=7 % | EXTERNAL | | | | | | LAB | | + +---------+ + + + | % | 1 | % | EXTERNAL | | | Myelocytes | | | LAB | | + +---------+ + + + | LYMPH % | 14 | 20 - 40 % | EXTERNAL | | | | | | LAB | | + +---------+ + + + | Atypical | 3 | <=5 % | EXTERNAL | | | Lymphocytes | | | LAB | | | Manual | | | | | + +---------+ + + + | % Monocytes | 7 | 3 - 13 % | EXTERNAL | | | | | | LAB | | + +---------+ + + + | % | 3 | <=7 % | EXTERNAL | | | Eosinophils | | | LAB | | + +---------+ + + + | Absolute | 8.95 | 2.80 - 7.70 | EXTERNAL | | | Neutrophils | | 1000/mm3 | LAB | | + +---------+ + + + | Absolute | 1.89 | 1.20 - 3.30 | EXTERNAL | | | Lymphocytes | | 1000/mm3 | LAB | | + +---------+ + + + | Absolute | 1.4 | 0.00 - 0.80 | EXTERNAL | | | Monocytes | | 1000/mm3 | LAB | | + +---------+ + + + | Absolute | 0.18 | 0.00 - 0.70 | EXTERNAL | | | Eosinophils | | 1000/mm3 | LAB | | + +---------+ + + + | Absolute | 0.03 | 0.00 - 0.20 | EXTERNAL | | | Basophils | | 1000/mm3 | LAB | | + +---------+ + + + | Toxic | PRESENT | | EXTERNAL | | | Granulation | | | LAB | | + +---------+ + + + + + | Specimen | + + | | + + + +---------+ + + | Performing | Address | City/State/Zipcode | Phone Number | | Organization | | | | + +---------+ + + | EXTERNAL LAB | | | | + +---------+ + + TSH (04/10/2015 6:11 AM PST) + + + + + + | Component | Value | Ref Range | Performed | Pathologist | | | | | At | Signature | + + + + + + | TSH | 9.51Comment: Test | 0.40 - 4.68 | EXTERNAL | | | | performed at [facility] | mIU/L | LAB | | | | Laboratory Reference | | | | | | Range = 0.270 - 4.20 | | | | + + + + + + + + | Specimen | + + | | + + + +---------+ + + | Performing | Address | City/State/Zipcode | Phone Number | | Organization | | | | + +---------+ + + | EXTERNAL LAB | | | | + +---------+ + + B Type Natriuretic Peptide (04/10/2015 6:11 AM PST) + +-------+ + + + | Component | Value | Ref Range | Performed | Pathologist | | | | | At | Signature | + +-------+ + + + | NT-proBNP | 144 | <=852 pg/mL | EXTERNAL | | [...] | | | + +---------+ + + D-DIMER,QUANTITATIVE (PREM) (04/10/2015 6:11 AM PST) + +-------+ + + + | Component | Value | Ref Range | Performed | Pathologist | | | | | At | Signature | + +-------+ + + + | D-DIMER, | 195 | <=124 ng/mL | EXTERNAL | | | QUANTITATIV | | | LAB | | | E | | | | | + +-------+ + + + + + | Specimen | + + | | + + + +---------+ + + | Performing | Address | City/State/Zipcode | Phone Number | | Organization | | | | + +---------+ + + | EXTERNAL LAB | | | | + +---------+ + + Troponin I (04/10/2015 6:11 AM PST) + +-------+ + + + [...] + +---------+ + + Basic Metabolic Panel (04/10/2015 6:11 AM PST) + +-------+ + + + | Component | Value | Ref Range | Performed | Pathologist | | | | | At | Signature | + +-------+ + + + | Sodium | 135 | 132 - 143 | EXTERNAL | | | | | mmol/L | LAB | | + +-------+ + + + | Potassium | 3.9 | 3.3 - 4.9 | EXTERNAL | | | | | mmol/L | LAB | | + +-------+ + + + | Cl | 97 | 95 - 108 mmol/L | EXTERNAL | | | | | | LAB | | + +-------+ + + + | CO2 | 26 | 23 - 34 mmol/L | EXTERNAL | | | | | | LAB | | + +-------+ + + + | Anion Gap | 12 | 7 - 16 | EXTERNAL | | | | | | LAB | | + +-------+ + + + | Calcium | 9.2 | 8.3 - 10.0 | EXTERNAL | | | | | mg/dL | LAB | | + +-------+ + + + | Glucose | 145 | 70 - 110 mg/dL | EXTERNAL | | | | | | LAB | | + +-------+ + + + | BUN, Bld | 16 | 5 - 26 mg/dL | EXTERNAL | | | | | | LAB | | + +-------+ + + + | Creatinine | 1.2 | 0.7 - 1.4 mg/dL | EXTERNAL | | | | | | LAB | | + +-------+ + + + | BUN/Creatin | 13.3 | 7.0 - 24.0 | EXTERNAL | [...] +---------+ + + CT Head wo Contrast (04/10/2015 6:02 AM PST) + + | Specimen | + + | | + + + + + | Narrative | Performed At | + + + | ORIGINAL CT BRAIN WITHOUT CONTRAST HISTORY: Left | | | facial droop. TECHNIQUE: 5-mm axial slices were acquired through | | | the brain without contrast. DOSE REPORT: DLP: 962.76 mGy-cm. | | | FINDINGS: There is no acute intracranial hemorrhage. No mass lesion. | | | No midline shift. There is prominence of the sulci out of proportion | | | to the ventricles. There is a remote right lacunar infarct of the | | | cerebellum measuring 9 mm. Paranasal sinuses and mastoid air cells | | | are clear. IMPRESSION: 1. No evidence of an acute intracranial | | | process. 2. Age-related volume loss. 3. Right cerebellar lacunar | | | infarct. The results of the study were communicated to Dr. Joseph | | | at 10:30 a.m. Job No.: [id number] Read By: | | | MASSIMO NUNEZ MD Released By: MASSIMO NUNEZ MD Date: | | | 04/10/2015 12:57 | | + + + + + | Procedure Note | + + | Osito, Rad Results In - 02/12/2017 9:19 PM PST [address] BRAIN WITHOUT | | CONTRAST HISTORY:Left facial droop. TECHNIQUE:5-mm axial slices were acquired through | | the brain without contrast. DOSE REPORT:DLP: 962.76 mGy-cm. FINDINGS:There is no acute | | intracranial hemorrhage. No mass lesion. No midline shift. There is prominence of the | | sulci out of proportion to the ventricles. There is a remote right lacunar infarct of | | the cerebellum measuring 9 mm. Paranasal sinuses and mastoid air cells are clear. | | IMPRESSION:1. No evidence of an acute intracranial process.2. Age-related volume loss.3. | | Right cerebellar lacunar infarct. The results of the study were communicated to . | | Jake at 10:30 a.m. Job No.: [id number] Read By: MASSIMO NUNEZ MD | | Released By: MASSIMO NUNEZ MDDate: 04/10/2015 12:57 | | | |DOSE REPORT: | |DLP: 962.76 mGy-cm. | | | |FINDINGS: | |There is no acute intracranial hemorrhage. No mass lesion. No midline shift. There is promi nence of the sulci out of proportion to the ventricles. There is a remote right lacunar infa rct of the cerebellum | |measuring 9 mm. Paranasal sinuses and mastoid air | | cells are clear. | | | |IMPRESSION: | |1. No evidence of an acute intracranial process. | |2. Age-related volume loss. | |3. Right cerebellar lacunar infarct. | | | |The results of the study were communicated to Dr. Joseph at 10:30 a.m. | | | | | |Job No.: [id number] | | | |Read By: MASSIMO NUNEZ MD | | | |Released By: MASSIMO NUNEZ MD | |Date: 04/10/2015 12:57 | | | | | + + CT Angiogram Chest W Contrast (04/10/2015 6:02 AM PST) + + | Specimen | + + | | + + + + + | Narrative | Performed At | + + + | ORIGINAL CTA CHEST HISTORY: Shortness of breath, | | | chest pain. TECHNIQUE: 5-mm axial slices were acquired through | | | the lungs during arterial phase of contrast. Multiplanar MIP | | | reconstruction was performed. There was no postcontrast reaction. | | | DOSE REPORT: DLP: 761.28 mGy-cm. FINDINGS: Great vessel caliber | | | is normal. The bolus of contrast is adequate. No pulmonary artery | | | filling defect is visualized. LAD coronary artery calcifications are | | | present. There is no pericardial effusion. The heart is mildly | | | enlarged. There is a small hiatal hernia. No pathologically enlarged | | | mediastinal or hilar adenopathy. There is mild lingular and bibasilar | | | dependent atelectasis. Right middle lobe bronchiectasis. No focal | | | lung parenchymal opacity. There is limited evaluation of abdominal | | | viscera. There is change of prior cholecystectomy. Multilevel | | | endplate degenerative change of the spine. IMPRESSION: 1. No | | | evidence of acute pulmonary embolus. 2. Coronary artery disease. 3. | | | Mild cardiomegaly. 4. Small hiatal hernia. The results of the | | | study were communicated to Dr. Joseph at 8:20 a.m. | | | Job No.: [id number] Read By: MASSIMO NUNEZ MD Released By: | | | MASSIMO NUNEZ MD Date: 04/10/2015 10:11 | | + + + + + | Procedure Note | + + | Adithya Mcneill Results In - 02/12/2017 9:19 PM PST ORIGINAL CTA CHEST | | HISTORY:Shortness of breath, chest pain. TECHNIQUE:5-mm axial slices were acquired | | through the lungs during arterial phase of contrast. Multiplanar MIP reconstruction was | | performed. There was no postcontrast reaction. DOSE REPORT:DLP: 761.28 mGy-cm. | | FINDINGS:Great vessel caliber is normal. The bolus of contrast is adequate. No pulmonary | | artery filling defect is visualized. LAD coronary artery calcifications are present. | | There is no pericardial effusion. The heart is mildly enlarged. There is a small hiatal | | hernia. No pathologically enlarged mediastinal or hilar adenopathy. There is mild | | lingular and bibasilar dependent atelectasis. Right middle lobe bronchiectasis. No focal | | lung parenchymal opacity. There is limited evaluation of abdominal viscera. There is | | change of prior cholecystectomy. Multilevel endplate degenerative change of the spine. | | IMPRESSION:1. No evidence of acute pulmonary embolus.2. Coronary artery disease.3. Mild | | cardiomegaly.4. Small hiatal hernia. The results of the study were communicated to Dr. | | Jake at 8:20 a.m. Job No.: [id number] Read By: MASSIMO NUNEZ MD | | Released By: MASSIMO NUNEZ MDDate: 04/10/2015 10:11 | |Great vessel caliber is normal. The bolus of contrast is adequate. No pulmonary artery fill ing defect is visualized. LAD coronary artery calcifications are present. There is no peric ardial effusion. The heart | |is mildly enlarged. There is a small hiatal | |hernia. No pathologically enlarged mediastinal or hilar adenopathy. There is mild lingular and bibasilar dependent atelectasis. Right middle lobe bronchiectasis. No focal lung parench ymal opacity. There is limited | |evaluation of abdominal viscera. There | |is change of prior cholecystectomy. Multilevel endplate degenerative change of the spine. | | | |IMPRESSION: | |1. No evidence of acute pulmonary embolus. | |2. Coronary artery disease. | |3. Mild cardiomegaly. | |4. Small hiatal hernia. | | | |The results of the study were communicated to Dr. Joseph at 8:20 a.m. | | | | | |Job No.: [id number] | | | |Read By: MASSIMO NUNEZ MD | | | |Released By: MASSIMO NUNEZ MD | |Date: 04/10/2015 10:11 | | | | | + + XR Chest PA or AP (04/10/2015 6:02 AM PST) + + | Specimen | + + | | + + + + + | Narrative | Performed At | + + + | ORIGINAL SINGLE-VIEW CHEST HISTORY: Shortness of | | | breath. COMPARISON STUDY: October 13, 2013. FINDINGS: Lungs are | | | hypoventilated. Diaphragmatic eventrations are noted on the right. No | | | pleural effusion or pneumothorax. Heart size is unchanged. No acute | | | bone process. IMPRESSION: No evidence of acute cardiopulmonary | | | process. Job No.: [id number] Read By: MASSIMO Fung | | | MD ENRIQUE Released By: MASSIMO NUNEZ MD Date: 04/10/2015 | | | 10:11 | | + + + + + | Procedure Note | + + | Osito, Rad Results In - 02/12/2017 9:19 PM PST ORIGINAL SINGLE-VIEW CHEST | | HISTORY:Shortness of breath. COMPARISON STUDY:October 13, 2013. FINDINGS:Lungs are | | hypoventilated. Diaphragmatic eventrations are noted on the right. No pleural effusion | | or pneumothorax. Heart size is unchanged. No acute bone process. IMPRESSION:No evidence | | of acute cardiopulmonary process. Job No.: [id number] Read By: MASSIMO Fung | | MD ENRIQUE Released By: MASSIMO NUNEZ MDDate: 04/10/2015 10:11 | |Shortness of breath. | | | |COMPARISON STUDY: | |October 13, 2013. | | | |FINDINGS: | |Lungs are hypoventilated. Diaphragmatic eventrations are noted on the right. No pleural eff usion or pneumothorax. Heart size is unchanged. No acute bone process. | | | |IMPRESSION: | |No evidence of acute cardiopulmonary process. | | | | | |Job No.: [id number] | | | |Read By: MASSIMO NUNEZ MD | | | |Released By: MASSIMO NUNEZ MD | |Date: 04/10/2015 10:11 | | | | | + + documented in this encounter Visit Diagnoses Not on filedocumented in this encounter"
--- OUTSIDE RECORDS SUMMARY | ~2019-02-17 | XMS | Encounter Summary ---
Demographics + + + | Address | [address] | | | [place] [address] | + + + | Home Phone | | + + + | Preferred Language | Unknown | + + + | Marital Status | | + + + | Hindu Affiliation | 1025 | + + + [...] Team Providers + +------+ + | Care Sign Maker Name | Role | Phone | [...] Description | +--------+--------+ + + + | 06/23/ | Refill | [facility] | Horacio Silvestre, | Medication Refill | | 2019 | | [facility] | DO [address] | | | | | [facility] [address] | [facility] [place], [place] | | | | | [address] [place], | [address] | | | | | [place] [address] | [phone] | | | | | [phone] | | | +--------+--------+ + + + [...] [place] | | | | | | [address] | | | | | | [phone] | | | | | | | | +--------+---------+ + + + | 02/26/ | Office | Urology | Lillie Fowler | | | 2019 | Visit | | LILLIE Lopez [address] | | | | | | [address] | | | | | | [place], [place] | | | | | | [address] | | | | | | [phone] | | | | | | | | +--------+---------+ + + + | 03/16/ | Office | Neurology | Theresa, | | | 2018 | Visit | | [address] | | | | | | [address] [place], | | | | | | [place] [address] | | | | | | [phone] | | | | | | | | +--------+---------+ + + + | 04/12/ | Office | Primary Care | Massimo Ramos Pedro Luis | | | 2019 | Visit | | MD Fer [address] | | | | | | [place] | | | | | | [address] | | | | | | | | +--------+---------+ + + + | 10/03/ | Office | Neurology | Fabián Carias MD | | | 2019 | Visit | | [address] | | | | | | [place] | | | | | | [address] | | | | | | | [...] | | | care | | | Quarry Manager-C | | | | | | [...] | | | care | | | Quarry Manager-C | | | | | | [...] | | | care | | | Quarry Manager-C | | | | | | [...] | | | care | | | Quarry Manager-C | | | | | | | linical | + +--------+ +---+-----+ + + + | Note: Pt will | | check CBG's daily x1 | | Pt will take Lantis as | | prescribed | + + documented as of this encounter Visit Diagnoses Not on filedocumented in this encounter"
--- OUTSIDE RECORDS SUMMARY | ~2019-02-17 | XMS | Encounter Summary ---
Demographics + + + | Address | [address] | | | [place] [address] | + + + | Home Phone | | + + + | Preferred Language | Unknown | + + + | Marital Status | | + + + | Confucianism Affiliation | 1025 | + + + | Race | Unknown | + + + | Ethnic Group | Unknown | + + + Author + + + | Author | [facility] | | | and [place] | + + + | Organization | [facility] | | | [...] Team Providers + +------+ + | Care Watch Inspector Final Movement Name | Role | Phone | + [...] | +--------+ + + + + | 10/12/ | Telephone | [facility] | Charline Banks, | Care Coordination | | 2019 | | [facility] | Case | | | | | [facility] [address] | [employer] | | | | | [address] [facility] [place], | | | | | | [place] [address] | | | | | | [phone] | | | +--------+ + + + [...] [place] | | | | | | [address] | | | | | | [phone] | | | | | | | | +--------+---------+ + + + | 02/26/ | Office | Urology | Lillie Fowler | | | 2018 | Visit | | [address]IE [address] | | | | | | [address] | | | | | | [place], [place] | | | | | | [address] | | | | | | [phone] | | | | | | | | +--------+---------+ + + + | 03/16/ | Office | Neurology | Theresa, | | | 2018 | Visit | | [address] | | | | | [address] [place], | | | | | | [place] [address] | | | | | | [phone] | | | | | | | | +--------+---------+ + + + | 04/12/ | Office | Primary Care | Massimo Ramos | | | 2019 | Visit | | MD [address] | | | | | | [place] | | | | | | [address] | | | | | | | | +--------+---------+ + + + | 10/03/ | Office | Neurology | Fabián Carias MD | | | 2019 | Visit | | [address] | | | | | | [place] | | | | | | [address] | | | | | | | [...] | | | care | | | [employer]ter[employer] | | | | | | | [...] | | | care | | | Swage Toolsetter-C | | | | | | | [...] | | | care | | | Swage Toolsetter-C | | | | | | | [...] | | | care | | | Swage Toolsetter-C | | | | | | | [...]
--- OUTSIDE RECORDS SUMMARY | ~2019-02-17 | XMS | Encounter Summary ---
Demographics + + + | Address | [address] | | | [place] [address] | + + + | Home Phone [...] Team Providers + +------+ + | Care Librarian Assistant Name | Role | Phone | + [...] [facility] [address] | [facility], [place] | | | | | [address] [place], | [address] | | | | | [place] [address] | [phone] | | | | | [phone] | | | +--------+ + + + [...] [place] | | | | | | [address] | | | | | | [phone] | | | | | | | | +--------+---------+ + + + | 02/26/ | Office | Urology | Lillie Fowler | | | 2018 | Visit | | LILLIE Lopez [address] | | | | | | [address] | | | | | | [place], [place] | | | | | | [address] | | | | | | [phone] | | | | | | | | +--------+---------+ + + + | 03/16/ | Office | Neurology | Theresa, | | | 2018 | Visit | | SHONDA M[address] | | | | | | [address] [place], | | | | | | [place] [address] | | | | | | [phone] | | | | | | | | +--------+---------+ + + + | 04/12/ | Office | Primary Care | Massimo Ramos Pedro Luis | | | 2019 | Visit | | MD Fer [address] | | | | | | [address] [place] | | | | | | [address] | | | | | | | | +--------+---------+ + + + | 10/03/ | Office | Neurology | Fabián Carias MD | | | 2019 | Visit | | [address] | | | | | | [place] | | | | | | [address] | | | | | | | [...] | | care | | | Senior Agricultural Assistant-C | | | | | | [...] | | care | | | Senior Agricultural Assistant-C | | | | | | [...] | | care | | | Senior Agricultural Assistant-C | | | | | | [...] | | care | | | Senior Agricultural Assistant-C | | | | | | [...]
--- OUTSIDE RECORDS SUMMARY | ~2019-02-17 | XMS | Encounter Summary ---
Demographics + + + | Address | [address] | | | [place] [address] | + + + | Home Phone | | + + + | Preferred Language | Unknown | + + + | Marital Status | | + + + | Adventist Affiliation | 1025 | + + + | Race | Unknown | + + + | Ethnic Group | Unknown | + + + Author + + + | Author | [facility] | | | and [place] | + + + | Organization | [facility] | | | and [...] Providers + +------+ + | Care Auto Electrical Technician Name | Role | Phone | + +------+ + | Horacio Silvestre DO | PCP | | + +------+ + Reason for Visit + + + | Reason | Comments | + + + | Extremity Weakness | | + + + Encounter Details +--------+ + + + + | Date | Type | Department | Care Team | Description | +--------+ + + + + | 03/16/ | Emergency | [facility] | Macario Sibley | Acute pulmonary | | 2018 - | | [facility] | Romario, DO [address] | edema (HCC) (Primary | | | | [address] [place] | [address] [place] | Dx); | | 03/17/ | | [place], [place] | [place] [address] | Hypothyroidism, | | 2018 | | [address] | [phone] | unspecified type; | | | | [phone] | | Hypotension, | | | | | Anson, Kasey L, LICENSED OPTICIAN | unspecified | | | | | [address] | hypotension type; | | | | | [place] [address] | Acute respiratory | | | | | [phone] | failure with hypoxia | | | | | | (HCC); Generalized | | | | | Faizan Wesley, | weakness | | | | | MD [address] | | | | | | [place] [address] | | | | | | [phone] | | | | | | | [...] + + + | Blood Pressure | 148/80 | 03/17/2018 12:03 PM | | | | | PST | | + + + + + | Pulse | 54 | 03/17/2018 12:03 PM | | | | | PST | | + + + + + | Temperature | 36.7 C (98.1 F) | 03/17/2018 12:03 PM | | | | | PST | | + + + + + | Respiratory Rate | 18 | 03/17/2018 12:03 PM | | | | | PST | | + + + + + | Oxygen Saturation | 96% | 03/17/2018 12:03 PM | | | | | PST | | + + + + + | Inhaled Oxygen | - | - | | | Concentration | | | | + + + + + | Weight | 96.2 kg (212 lb 3.1 | 03/17/2018 5:20 AM | | | | oz) | PST | | + + + + + | Height | 167.6 cm (5' 6") | 03/16/2018 2:11 PM | | | | | PST | | + + + + + | Body Mass Index | 34.25 | 03/16/2018 2:11 PM | | | | | PST [...] documented as of this encounter Discharge Summaries Kasey Salinas NP - 03/17/2018 3:55 PM PSTFormatting of this note might be different fr om the original. MEDICAL HOSPITALIST DISCHARGE SUMMARY Pt. Name/Age/: Geraldo Mcfadden 77 y.o. 1940 Date of Admission: 03/16/2018 Date of Discharge: 03/17/2018 PCP: Horacio Silvestre Admitting Diagnosis: Pneumonia Discharge Diagnosis: Principal Problem: Pneumonia Active Problems: Generalized weakness Hypoxia Resolved Problems: * No resolved hospital problems. * Additional discharge history/co-morbidities: Active Ambulatory Problems Diagnosis Date Noted Multilevel degenerative disc disease 05/22/2013 Bilateral carpal tunnel syndrome 05/31/2013 History of stroke without residual deficits 03/07/2017 Gastroesophageal reflux disease without esophagitis 03/07/2017 Essential hypertension 03/07/2017 Acquired hypothyroidism 03/07/2017 Pure hypercholesterolemia 03/07/2017 Hypogonadotropic hypogonadism 03/07/2017 Type 2 diabetes mellitus with diabetic polyneuropathy, 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 03/07/2017 Class 1 obesity with alveolar hypoventilation, serious comorbidity, and body mass index (BMI) of 34.0 to 34.9 in adult 03/07/2017 Benign prostatic hyperplasia without lower urinary tract symptoms 03/07/2017 Acquired diverticulosis of colon 03/07/2017 Chronic nonseasonal allergic rhinitis due to pollen 03/07/2017 intermediate frame tender current use of aspirin 03/07/2017 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, left intermediate frame tender current use of opiate analgesic 06/27/2017 Current use of beta marly 06/30/2017 Panlobular emphysema 08/08/2017 Atherosclerosis of [place] coronary artery of [place] heart without angina pectoris 08/08 On potassium wasting diuretic therapy 08/08/2017 Community acquired pneumonia, unspecified laterality 08/15/2017 Primary osteoarthritis involving multiple joints 09/30/2017 Vitamin D deficiency disease 09/30/2017 Chronic bilateral low back pain without sciatica 12/15/2017 Generalized weakness 01/09/2018 Chronic bilateral low back pain without sciatica 02/19/2018 Neutrophilic leukocytosis 03/17/2018 Resolved Ambulatory Problems Diagnosis Date Noted Neck pain, bilateral 12/15/2017 Dehydration 01/09/2018 Past Medical History: Diagnosis Date Carpal tunnel syndrome, bilateral 05/31/2013 DDD (degenerative disc disease), cervical 05/22/2013 Diabetes mellitus GERD (gastroesophageal reflux disease) Gout Hiatal hernia Hypertension Melanoma Melanoma 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, left Neck pain, chronic 05/22/2013 Neuropathy Paresthesias - both hands 05/22/2013 Thyroid disease Discharge Medication Reconciliation: Discharge Medications New Medications Details levoFLOXacin 500 mg tablet Take 1 tablet by mouth Daily for 5 days. aka: LEVAQUIN Changed Medications Details levothyroxine 200 mcg tablet Take 1 tablet by mouth every morning (before breakfast). What changed: medication strength how much to take aka: SYNTHROID levothyroxine 100 mcg tablet Take 2 tablets by mouth every morning (before breakfast). What changed: You were already taking a medication with the same name, and this prescripti on was added. Make sure you understand how and when to take each. aka: SYNTHROID Unchanged Medications Details albuterol 90 mcg/puff inhaler Inhale 2 puffs into the lungs every 4 hours as needed for Wheezing. Or coughing aspirin 325 mg tablet Take 325 mg by mouth every morning. atorvaSTATin 10 mg tablet Take 10 mg by mouth every morning. aka: LIPITOR colchicine 0.6 mg tablet Take 0.6 mg by mouth every morning. cyanocobalamin 1000 MCG tablet Take 1 tablet by mouth every morning. aka: VITAMIN B-[address] D[address] capsule Take 60 mg by mouth every morning. aka: CYMBALTA fluticasone 50 mcg/nasal spray 2 sprays by Nasal route nightly as needed for Allergies. aka: FLONASE hydroCHLOROthiazide 25 mg tablet Take 12.5 mg by mouth every morning. insulin aspart 100 units/mL injection Inject 10 Units under the skin every morning (before breakfast). Checks BG 30 minutes afte r eating + Additional 15 units for BG >250 aka: novoLOG insulin glargine 100 units/mL injection (vial) Inject 35 Units under the skin nightly. aka: LANTUS losartan 50 mg tablet Take 50 mg by mouth every morning. aka: COZAAR naproxen 500 mg tablet Take 500 mg by mouth 2 times daily (with breakfast & dinner). aka: NAPROSYN omeprazole 20 mg capsule Take 1 capsule by mouth every morning (before breakfast). aka: priLOSEC oxyCODONE 10 MG Tabs Take 1 tablet by mouth 3 times daily as needed for Pain. pregabalin 300 MG capsule Take 1 capsule by mouth 2 times daily. aka: LYRICA SPIRIVA RESPIMAT 2.5 mcg/puff inhaler Generic drug: tiotropium Inhale 2 puffs into the lungs Daily. tamsulosin 0.4 mg Caps Take 1 capsule by mouth nightly. aka: FLOMAX testosterone 2 mg/[address] 1 patch onto the skin nightly. aka: ANDRODERM traZODone 50 mg tablet Take 2 tablets by mouth nightly. aka: DESYREL urea 40 % Crea Apply to affected areas daily aka: CARMOL Clinical Resume: Geraldo Mcfadden is a 77 y.o. male with the above past medical history that presented to the Emergency Department on 03/16/2018 with sudden weakness and shaking in his extremities. Please see H&P for complete details. In the Emergency Department the patient was noted to be hypoxic when placed on the monitor his oxygen saturation was in the 80s and he was placed on 2 L of oxygen. His blood pressure s were low with systolic in the 80s. He was given IV fluids. His blood pressures improved. He continued to require oxygen. A chest x-ray showed pulmonary edema. His white cell cou nt was elevated at 16,000. CMP was unremarkable. Troponin was negative. EKG showed kortney l sinus rhythm with no acute ST changes. UA was negative. TSH was elevated at 14.97 with fr ee T4 of 0.7. The patient was admitted to Med/Surg. CTA of the chest was obtained due to concerns for PE with hypoxia and pulmonary edema noted on chest x-ray. The patient also has a history of rec urrent pneumonias. CTA of the chest was negative for PE but did show Multifocal ground-glass opacities with some associated nodularity. The patient was started on IV Levaquin. An Echoc ardiogram was obtained that showed LVEF of 66%. No significant valvular disease. Mild diasto lic dysfunction. His levothyroxine was increased from 175 g to 200 g daily. Overnight his weakness and shaking resolved. White blood cell count improved. He is remai tavares afebrile. Vitals have remained stable. PT evaluated the patient and provided him with home exercises for strengthening. Oxygen was weaned. Plan to discharge home today with instructions to follow-up with PCP in the next 1-2 weeks. Levaquin 500 mg daily for 5 more days to complete [facility] levothyroxine was increased from 175 g daily to 200 g daily. A prescriptio n for 5 days [facility] to [facility] Pending inpatient studies at time of discharge: None Disposition: Home Follow-Up Plans: Horacio Silvestre DO [address] [place] [address] [place] [address] In 2 weeks Hospital follow up Physical Examination: General: Awake, alert Cardiovascular: RRR, audible s1 and s2 Respiratory: Clear throughout bilaterally Abdomen: Obese, soft, non-tender to palpation Extremities: No edema Skin: Intact Neurological: A&O x3, moving all extremities Psychiatric: Appropriate affect Significant tests and procedures during admission: Ct Head Wo Contrast Result Date: 03/16/2018 EXAMINATION: CT HEAD WO CONTRAST HISTORY: EXTREMITY WEAKNESS COMPARISON STUDY: October 22 TECHNIQUE: 5 mm axial slices were acquired through the brain without contrast. DOSE REPORT : Total exam DLP 716.68 mGy cm. Automated exposure control was utilized. FINDINGS: No evid ence of an acute intracranial hemorrhage, mass lesion, or midline shift. The reinoso-white christopher er interface is intact. The ventricles are symmetric. Sulci are mildly prominent Basilar cis terns are patent. Remote right cerebellar lacunar infarct. Mild periventricular white matter hypodensity. Calcifications are noted within the cavernous internal carotid arteries. Mild maxillary sinus mucosal thickening. Mastoid air cells are clear. No fracture. IMPRESSION: 1. No acute intracranial process. 2. Stable remote right cerebellar infarct. 3. Stable mild periventricular white matter changes. 4. The results of the study were discuss ed with MACARIO SIBLEY at 09:58 Dictated by: Massimo Alba Xr Chest Ap Portable Result Date: 03/16/2018 EXAMINATION: XR CHEST AP PORTABLE HISTORY: EXTREMITY WEAKNESS COMPARISON STUDY: February FINDINGS: The lungs are noted to have increased degree of vascular indistinctness. T here is cephalization of vessels. Few septal lines are present. No pleural effusion. No p neumothorax. Heart size is stable. No acute osseous process. IMPRESSION: Mild pulmonary edema. Dictated by: Massimo Alba Xr Chest Ap Portable Result Date: 02/28/2018 EXAMINATION: XR CHEST AP PORTABLE HISTORY: WEAKNESS COMPARISON STUDY: January 09, 2018 FINDI NGS: The lungs are well ventilated. There is subtle asymmetric increased density of the lef t hemithorax without discrete borders. This is likely positional artifact. No pleural effu jessica. No pneumothorax. Heart size is stable. No acute osseous process. IMPRESSION: Persistent cardiomegaly. No discrete airspace opacity is identified. Dictated by: Massimo Alba Ct Angiogram Chest W Contrast Result Date: 03/16/2018 EXAMINATION: CT ANGIOGRAM CHEST W CONTRAST HISTORY: Evaluate for PE/Malignancy COMPARISON S TUDY: March 16, 2018 TECHNIQUE: 1.25 mm axial slices were acquired through the lungs duri ng an arterial phase of contrast. Multiplanar MIP reconstructions were performed. There wa s no post contrast reaction. DOSE REPORT: CTDIvol: 22.1 - 23.7 mGy. DLP: 763 mGy-cm. Automa rosemarie exposure control was utilized. FINDINGS: The bolus of contrast is adequate. No pulmonary artery filling defect. Main pulmonary artery is prominent measuring 3.3 cm. Mediastinum and hilum demonstrate subcentimeter lymph nodes. Heart size is upper limits of normal. No peric ardial effusion. Coronary arteries have scattered atherosclerosis. No pleural effusion. No p neumothorax. Lung parenchyma demonstrates patchy ground-glass airspace opacity within the up per lobes, right greater than left. There is also noted to be bibasilar ground-glass airspa ce opacity right greater than left. Right middle lobe ground-glass airspace opacity is also noted. Some nodularity is not noted associated with the ground-glass opacities. Small hiat al hernia. Limited evaluation of abdominal viscera. Prior cholecystectomy. Right renal cyst No acute bone process. IMPRESSION: 1. Multifocal ground-glass opacities with some associated nodularity likely rep resents an infectious process. This should be followed resolution. 2. Coronary artery disea se. 3. Cardiomegaly. 4. Pulmonary hypertension. 5. Prior cholecystectomy. Dictated by: Angel Luis Alba Microbiology Results (Last 14 Days by Collected Date with Culture/Sensitivity) Procedure Component Value Units Date/Time Culture, Blood [[id number]] Order Status: Canceled Lab Status: No result Specimen: Blood from Peripheral Blood Culture, Blood [[id number]] Order Status: Canceled Lab Status: No result Specimen: Blood from Peripheral Blood Time spent discharging this patient: 30 min CHANTEL Hillman 03/17/2018Electronically signed by Rupinder Padgett MD at 8 7:55 AM PSTdocumented in this encounter Discharge Instructions AttachmentsThe following attachments cannot be sent through Care Everywhere.Adult, Pneumoni a (Peruvian)Hypothyroidism (Peruvian)documented in this encounter Medications at Time of [...] | | | (LIPITOR) 10 mg | every morning. | | | | 9 | | tablet | | | | | | + + + +---------+ + + | colchicine 0.6 mg | Take 0.6 mg by mouth | | 0 | | | | tablet | every morning. | | | | 8 | + + + +---------+ + + | cyanocobalamin | Take 1 tablet by | 30 | 0 | 03/12/20 | | | (VITAMIN B-12) 1000 | mouth every morning. | tablet | | 18 | 8 | | MCG tablet | | | | | | + + + +---------+ + + | DULoxetine | Take 60 mg by mouth | | 0 | | | | (CYMBALTA) [address] | every morning. | | | | 9 | | capsule | | [...] | | | | hydroCHLOROthiazide | mouth every morning. | | | [...] tablet by | 5 | 0 | 03/17/20 | | | (LEVAQUIN) 500 mg | mouth Daily for 5 | tablet | | 18 | 8 | | tablet | days. | | | | | + + + +---------+ + + | levothyroxine | Take 2 tablets by | 90 | 0 | 03/17/20 | | | (SYNTHROID) 100 mcg | mouth every morning | tablet | | 18 | 9 | | tablet | (before breakfast). | | | | | + + + +---------+ + + | levothyroxine | Take 1 tablet by | 10 | 1 | 03/17/20 | | | (SYNTHROID) 200 mcg | mouth every morning | tablet | | 18 | 9 | | tablet | (before [...] capsule by | 90 | 1 | 03/12/20 | | | (PRILOSEC) 20 mg | mouth every morning | capsule | | 18 | 8 | | capsule | (before breakfast). | | | | | + + + +---------+ + + | oxyCODONE 10 MG | Take 1 tablet by | 84 | 0 | 03/12/20 | | | TABSIndications: | mouth 3 times daily | tablet | | 18 | 9 | | Multilevel | as needed for Pain. 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, intermediate frame tender | | | | | | | [...] +---------+ + + | tiotropium | Inhale 2 puffs into | | 0 | | | | (SPIRIVA RESPIMAT) | the lungs Daily. | | | | 9 | | 2.5 mcg/puff inhaler | | | | | | + + + +---------+ + + | traZODone | Take 2 tablets by | 90 | 3 | 02/10/20 | | | (DESYREL) 50 mg | mouth nightly. | tablet | | 18 | 9 | | tablet | | [...] encounter Progress Notes Clarence Coulter, PharmD - 03/17/2018 9:08 AM PSTMedication History Completed Medication history was completed using: -interview with patient who was a fairly good historian -medication list faxed from [facility] in [place] Major discrepancies noted: Patient takes three 10mg oxycodone IR every morning instead of t he prescribed TID dosing. Insulin aspart (Novalog) is dosed per modified sliding scale Please see [facility] med list for updated medication list. Electronically Signed by: Clarence Coulter PharmMercedes 03/17/2018 9:08 documented in this encounter Plan of Treatment +--------+---------+ + + + | Date | Type | Specialty | Care Team | Description | +--------+---------+ + + + | 02/25/ | Office | General Surgery | Romario De Oliveira | | | 2018 | Visit | | DO Jalen [address] | | | | [address] | | | | | | [place], [place] | | | | | | [address] | | | | | | [phone] | | | | | | | | +--------+---------+ + + + | 02/26/ | Office | Urology | Lillie Fowler | | | 2018 | Visit | | LILLIE Lopez [address] | | | [address] | | [address] | | | | | | [place], [place] | | | | | | [address] | | | | | | [phone] | | | | | | | | +--------+---------+ + + + | 03/16/ | Office | Neurology | Theresa, | | | 2018 | Visit | | SHONDA Mckinney [address] [place], | | | | | | [place] [address] | | | | | | [phone] | | | | | | | | +--------+---------+ + + + | 04/12/ | Office | Primary Care | Massimo Ramos | | | 2019 | Visit | | MD Fer [address] | | | | | | [address] [place] | | | | | | [address] | | | | | | | | +--------+---------+ + + + | 10/03/ | Office | Neurology | Fabián Carias MD | | | 2019 | Visit | | [address] | | | | | | [place] | | | | | | [address] | | | | | | | | +--------+---------+ + + + + +------+--------+ + + | Name | Type | Priori | Associated Diagnoses | Date/Time | | | | ty | | | + +------+--------+ + + | ED INFORMATION | BRIT | Routin | | 03/16/2018 8:19 AM | | EXCHANGE | | e | | PST | + +------+--------+ + + documented as [...] | | | care | | | Machine Plate Stacker-C | | | | | | | [...] | | | care | | | Machine Plate Stacker-C | | | | | | | [...] | | | care | | | Machine Plate Stacker-C | | | | | | | [...] | | | care | | | Machine Plate Stacker-C | | | | | | | [...] | ECG - EXTERNAL SCAN | | 03/19/2018 | | Results for this | | | | 12:00 AM | | procedure are in the | | | | PST | | results section. | + +--------+ + + + | POC GLUCOSE | Routin | 03/17/2018 | | Results for this | | | e | 12:00 PM | | procedure are in the | | | | PST | | results section. | + +--------+ + + + | POC GLUCOSE | Routin | 03/17/2018 | | Results for this | | | e | 7:46 AM | | procedure are in the | | | | PST | | results section. | + +--------+ + + + | CBC WITH | Routin | 03/17/2018 | | Results for this | | DIFFERENTIAL | e | 5:24 AM | | procedure are in the | | | | PST | | results section. | + +--------+ + + + | MAGNESIUM | Routin | 03/17/2018 | | Results for this | | | e | 5:24 AM | | procedure are in the | | | | PST | | results section. | + +--------+ + + + | BASIC METABOLIC | Routin | 03/17/2018 | | Results for this | | PANEL | e | 5:24 AM | | procedure are in the | | | | PST | | results section. | + +--------+ + + + | POC GLUCOSE | Routin | 03/16/2018 | | Results for this | | | e | 8:06 PM | | procedure are in the | | | | PST | | results section. | + +--------+ + + + | POC GLUCOSE | Routin | 03/16/2018 | | Results for this | | | e | 4:52 PM | | procedure are in the | | | | PST | | results section. | + +--------+ + + + | ECHO COMPLETE | Routin | 03/16/2018 | | | | | e | 2:39 PM | | | | | | PST | | | + +--------+ + + + | CT ANGIOGRAM CHEST W | Routin | 03/16/2018 | | Results for this | | CONTRAST | e | 1:41 PM | | procedure are in the | | | | PST | | results section. | + +--------+ + + + | URINALYSIS WITH | STAT | 03/16/2018 | | Results for this | | MICROSCOPIC WITH | | 10:11 AM | | procedure are in the | | CULTURE IF INDICATED | | PST | | results section. | + +--------+ + + + | CT HEAD WO CONTRAST | STAT | 03/16/2018 | | Results for this | | | | 9:41 AM | | procedure are in the | | | | PST | | results section. | + +--------+ + + + | XR CHEST AP PORTABLE | STAT | 03/16/2018 | | Results for this | | | | 9:37 AM | | procedure are in the | | | | PST | | results section. | + +--------+ + + + | TROPONIN I | STAT | 03/16/2018 | | Results for this | | | | 8:56 AM | | procedure are in the | | | | PST | | results section. | + +--------+ + + + | CBC WITH | STAT | 03/16/2018 | | Results for this | | DIFFERENTIAL | | 8:56 AM | | procedure are in the | | | | PST | | results section. | + +--------+ + + + | TSH | Add-On | 03/16/2018 | | Results for this | | | | 8:56 AM | | procedure are in the | | | | PST | | results section. | + +--------+ + + + | T4, FREE | STAT | 03/16/2018 | | Results for this | | | | 8:56 AM | | procedure are in the | | | | PST | | results section. | + +--------+ + + + | B TYPE NATRIURETIC | STAT | 03/16/2018 | | Results for this | | PEPTIDE | | 8:56 AM | | procedure are in the | | | | PST | | results section. | + +--------+ + + + | MAGNESIUM | Add-On | 03/16/2018 | | Results for this | | | | 8:56 AM | | procedure are in the | | | | PST | | results section. | + +--------+ + + + | LACTIC ACID | STAT | 03/16/2018 | | Results for this | | | | 8:56 AM | | procedure are in the | | | | PST | | results section. | + +--------+ + + + | CK TOTAL | Add-On | 03/16/2018 | | Results for this | | | | 8:56 AM | | procedure are in the | | | | PST | | results section. | + +--------+ + + + | COMPREHENSIVE | STAT | 03/16/2018 | | Results for this | | METABOLIC PANEL | | 8:56 AM | | procedure are in the | | | | PST | | results section. | + +--------+ + + + | ECG 12 LEAD | STAT | 03/16/2018 | | Results for this | | | | 8:50 AM | | procedure are in the | | | | PST | | results section. | + +--------+ + + + | ED INFORMATION | Routin | 03/16/2018 | | | | EXCHANGE | e | 8:19 AM | | | | | | PST | | | + +--------+ + + + +---+--------+ | | | | | Proced | | | ure | | | Note - | | | Randa, | | | Lab In | | | | | | Hlseve | | | n - | | | 12/10/ | | | 2018 | | | 8:20 | | | AM PST | | | | | | Format | | | ting | | | of | | | this | | | note | | | might | | | be | | | differ | | | ent | | | from | | | the | | | origin | | | al.RANDA | | | E?NOTI | | | FICATI | | | ON?12/ | | | 10/201 | | | 8 | | | 08:15? | | | MCFADDEN, | | | KENNET | | | H | | | J?MRN: | | | | | | [id number] | | | [id number] | | | ecurit | | | y | | | Events | | | No | | | [...] | | | codie | | | in | | | BRIT | | | for | | | this | | | patien | | | t. | | | Please | | | check | | | your | | | facili | | | ty's | | | medica | | | l | | | record | | | s | | | system | | | .Crite | | | pratik | | | met 5 | | | | | | Visits | | | In | | | 365 | | | DaysCa | | | re | | | Provid | | | ersPro | | | vider | | | PRC | | | [...] | | | t | | | HORACIO | | | S | | | KILBOU | | | RN | | | Primar | | | y Care | | | [phone] | | | | | | [phone] | | | [phone] | | | [phone] | | | [phone] | | | Curren | | | t | | | Recent | | | | | | Emerge | | | ncy | | | Depart | | | ment | | | Visit | | | [place]mar | | | yAdmit | | | Date | | | Facili | | | ty | | | City | | | State | | | Type | | | Major | | | Type | | | Diagno | | | ses or | | | Chief | | | | | | Compla | | | int | | | Dec | | | 10, | | | 2018 | | | [place] | | | [place] | | | [place] | | | [place] | | | [place] | | | Emerge | | | ncy | | | Emerge | | | ncy | | | | | | Weakne | | | ss | | | Nov | | | 24, | | | 2018 | | | [place] | | | [place] | | [place] | | [place] | | | [place] | | | Emerge | | | ncy | | | Emerge | | | ncy | | | | | | weakne | | | ss | | | Other | | | sympto | | | ms and | | | signs | | | | | | involv | | | ing | | | the | | | muscul | | | oskele | | | adam | | | system | | | | | | Genera | | | lized | | | hyperh | | | idrosi | | | s | | | Elevat | | | [...] | | | ncy | | | Emerge | | | ncy | | | Fall, | | | fever | | | | | | Weakne | | | ss | | | Chroni | | | c | | | obstru | | | ctive | | | pulmon | | | yamilex | | | diseas | | | e with | | | | | | (acute | | | ) | | | exacer | | | bation | | | | | | Pneumo | | | bebe, | | | unspec | | | ified | | | organi | | | sm | | | Aug | | | 12, | | | 2018 | | | [place] | | | [place] | | | [place] | | | [place] | | | [place] | | | Emerge | | | ncy | | | Emerge | | | ncy | | | Right | | | leg | | | swolle | | | n | | | Leg | | | Swelli | | | ng | | | Cellul | | | itis | | | of | | | right | | | lower | | | limb | | | Recent | | | | | | Inpati | | | ent | | | Visit | | | Summar | | | yAdmit | | | Date | | | Facili | | | ty | | | City | | | State | | | Type | | | Major | | | Type | | | Diagno | | | ses or | | | Chief | | | | | | Compla | | | int | | | Oct 5, | | | 2018 | | | [place] | [facility] [place] [facility] 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 | | | Visit | | | Count | | | (12 | | | mo.)Fa | | | cility | | | | | | Visits | | | | | | [place] [facility] | | | al 6 | | | Total | | | 6 | | | Note: | | | Visits | | | | | | indica | | | te | | | total | | | known | | | visits | | | . | | | Prescr | | | iption | | | Drug | | | Report | | | (12 | | | Mo.)PD | | | MP | | | report | | | does | | | not | | | meet | | | criter | | | ia.The | | | above | | | | | | inform | | | ation | | | is | | | provid | | | ed for | | | the | | | sole | | | purpos | | | e of | | | patien | | | t | | | treatm | | | ent. | | | Use of | | | this | | | inform | | | ation | | | beyond | | | the | | | terms | | | of | | | Data | | | Sharin | | | g | | | Memora | | | ndum | | | of | | | Unders | | | tandin | | | g and | | | Licens | | | e | | | Agreem | | | ent is | | | | | | prohib | | | ited. | | | In | | | certai | | | n | | | cases | | | not | | | all | | | visits | | | may | | | be | | | repres | | | ented. | | | | | | Consul | | | t the | | | aforem | | | ention | | | ed | | | facili | | | ties | | | for | | | additi | | | onal | | | inform | | | ation. | | | ? | | | 2018 | | | [employer]le[employer] | | | tive | | | Med[employer] | | | l | | | [employer] | | | logies | | | , [employer] | | | - | | | [place] | | | [place] | | | [place], | | | [place] - | | | [email or web address] | | | ollect | | | ivemed | | | icalte | | | [email or web address] | | | | +---+--------+ documented in this encounter Results ECG - EXTERNAL SCAN (03/19/2018 12:00 AM PST) + + + | Narrative | Performed At | + + + | Ordered by an | | | unspecified provider. | | + + + POC Glucose (03/17/2018 12:00 PM PST) + +---------+ + + + | Component | Value | Ref Range | Performed | Pathologist | | | | | At | Signature | + +---------+ + + + | Glucose, | 120 (H) | 70 - 110 mg/dL | [...] + + | [facility] | [address] | [place] [address] | [phone] | | [facility] | | | | + + + + + POC Glucose (03/17/2018 7:46 AM PST) + +---------+ + + + | Component | Value | Ref Range | Performed | Pathologist | | | | | At | Signature | + +---------+ + + + | Glucose, | 135 (H) | 70 - 110 mg/dL | [...] + + | [facility] | [address] | [place] [address] | [phone] | | [facility] | | | | + + + + + Magnesium (03/17/2018 5:24 AM PST) + +-------+ + + + [...] + + | [facility] | [address] | [place] [address] | [phone] | | [facility] | | | | + + + + + CBC with Differential (03/17/2018 5:24 AM PST) + + + + + + | Component | Value | Ref Range | Performed | Pathologist | | | | | At | Signature | + + + + + + | WBC | 8.4 | 4.6 - 10.5 K/uL | [facility] | | + + + + + + | RBC | 3.69 (L) | 4.36 - 5.83 | [facility] | | | | | M/uL | [facility] | | | [facility] | | + + + + + + | Hemoglobin | 11.0 (L) | 13.1 - 17.4 | [facility] | | | | | g/dL | [facility] | [facility] | | | [facility] | | + + + + + + | Hematocrit | 34.4 (L) | 39.0 - 51.9 % | [facility] | | [facility] | | + + + + + + | MCV | 93.2 | 82.0 - 96.0 fL | [facility] | | | [facility] | | + + + + + + | MCH | 29.8 | 27.7 - 32.3 pg | [facility] | | [facility] | | + + + + + + | MCHC | 32.0 | 32.0 - 36.9 | [facility] | | | | | g/dL | [facility] | | [facility] | | + + + + + + | RDW-CV | 17.5 (H) | 0.0 - 17.0 % | [facility] | [facility] | | | | [facility] | | + + + + + + | Platelet | 107 (L) | 150 - 450 K/uL | [facility] | | | Count | | | [facility] | | | | | | [facility] | | + + + + + + | MPV | 11.7 | 9.4 - 12.4 fL | [facility] | | | | [facility] | | | | [facility] | | + + + + + + | % | 67.1 | 42.0 - 76.0 % | [facility] | | | Neutrophils | | | [facility] | | | | | | [facility] | | + + + + + + | % | 15.2 (L) | 20.0 - 40.0 % | [facility] | | | Lymphocytes | | | [facility] | | | | | | [facility] | | + + + + + + | % Monocytes | 12.0 | 3.0 - 13.0 % | [facility] | | | | [facility] | | | | | [facility] | | + + + + + + | % | 4.8 | 0.0 - 7.0 % | [facility] | | | Eosinophils | | | [facility] | | | | | | [facility] | | + + + + + + | % Basophils | 0.2 | 0.0 - 2.0 % | [facility] | [facility] | | | | [facility] | | + + + + + + | % Immature | 0.7 (H) | 0.0 - 0.5 % | [facility] | | | Granulocyte | | | [facility] | | | [facility] | | | [facility] | | | | | | [facility] | | + + + + + + | Absolute | 5.61 | 2.80 - 7.70 | [facility] | | | Neutrophils | | K/uL | [facility] | | | | | | [facility] | | + + + + + + | Absolute | 1.27 | 1.20 - 3.30 | [facility] | | | Lymphocytes | | K/uL | [facility] | | | | | [facility] | | + + + + + + | Absolute | 1.00 (H) | 0.00 - 0.80 | [facility] | | | Monocytes | | K/uL | [facility] | | | | | [facility] | | + + + + + + | Absolute | 0.40 | 0.00 - 0.70 | [facility] | | | Eosinophils | | K/uL | [facility] | | | | | | [facility] | | + + + + + + | Absolute | 0.02 | 0.00 - 0.20 | [facility] | | | Basophils | | K/uL | [facility] | | | | | [facility] | | + + + + + + | Absolute | 0.06 | 0.00 - 0.15 | [facility] | [...] + + | [facility] | [address] | [place] [address] | [phone] | | [facility] | | | | + + + + + Basic Metabolic Panel (03/17/2018 5:24 AM PST) + +---------+ + + + | Component | Value | Ref Range | Performed | Pathologist | | | | | At | Signature | + +---------+ + + + | Na | 140 | 132 - 143 | [facility] | | | | | mmol/L | [facility] | | | | | [facility] | | + +---------+ + + + | K | 4.3 | 3.3 - 4.9 | [facility] | | | | | mmol/L | [facility] | | | | | [facility] | | + +---------+ + + + | Cl | 104 | 95 - 108 mmol/L | [facility] | | | | [facility] | | + +---------+ + + + | CO2 | 30 | 23 - 34 mmol/L | [facility] | | | | [facility] | | + +---------+ + + + | Anion Gap | 6 (L) | 7 - 16 mmol/L | [facility] | | | | [facility] | | + +---------+ + + + | Glucose | 124 (H) | 70 - 110 mg/dL | [facility] | [facility] | | | | [facility] | | + +---------+ + + + | BUN | 19 | 5 - 26 mg/dL | [facility] | | | | [facility] | | + +---------+ + + + | Creatinine | 1.10 | 0.70 - 1.40 | [facility] | | | | | mg/dL | [facility] | | | | | [facility] | | + +---------+ + + + | eGFR if not | >60 | >=60 | [facility] | | | | | mL/min/1.73m2 | [facility] | | [facility] [place] | | | | | | [facility] | | + +---------+ + + + | Calcium | 8.1 (L) | 8.3 - 10.0 | [facility] | | | | | mg/dL | [facility] | | | | | | [facility] | | + +---------+ + + + | BUN/Creatin | 17.3 | 7.0 - 24.0 | [facility] | [...] + + | [facility] | [address] | [place] [address] | [phone] | | [facility] | | | | + + + + + POC Glucose (03/16/2018 8:06 PM PST) + +---------+ + + + | Component | Value | Ref Range | Performed | Pathologist | | | | | At | Signature | + +---------+ + + + | Glucose, | 196 (H) | 70 - 110 mg/dL | [...] + + | [facility] | [address] | [place] [address] | [phone] | | [facility] | | | | + + + + + POC Glucose (03/16/2018 4:52 PM PST) + +---------+ + + + | Component | Value | Ref Range | Performed | Pathologist | | | | | At | Signature | + +---------+ + + + | Glucose, | 173 (H) | 70 - 110 mg/dL | [...] + + | [facility] | [address] | [place] [address] | [phone] | | [facility] | | | | + + + + + ECHO Complete (03/16/2018 2:39 PM PST) + + | Specimen | + + | | + + + + + | Narrative | Performed At | + + + | | | + + + CT Angiogram Chest W Contrast (03/16/2018 1:41 PM PST) + + | Specimen | + + | | + + + + + | Impressions | Performed At | + + + | IMPRESSION: 1. Multifocal ground-glass opacities with some | [facility] | | associated nodularity likely represents an infectious process. This | | | should be followed resolution. 2. Coronary artery disease. 3. | | | Cardiomegaly. 4. Pulmonary hypertension. 5. Prior cholecystectomy. | | | Dictated by: Massimo Alba | | + + + + + + | Narrative | Performed At | + + + | EXAMINATION: CT ANGIOGRAM CHEST W CONTRAST HISTORY: Evaluate | [facility] | | for PE/Malignancy COMPARISON STUDY: March 16, 2018 | | | TECHNIQUE: 1.25 mm axial slices were acquired through the lungs | | | during an arterial phase of contrast. Multiplanar MIP | | | reconstructions were performed. There was no post contrast reaction. | | | DOSE REPORT: CTDIvol: 22.1 - 23.7 mGy. DLP: 763 mGy-cm. | | | Automated exposure control was utilized. FINDINGS: The bolus of | | | contrast is adequate. No pulmonary artery filling defect. Main | | | pulmonary artery is prominent measuring 3.3 cm. Mediastinum and hilum | | | demonstrate subcentimeter lymph nodes. Heart size is upper limits of | | | normal. No pericardial effusion. Coronary arteries have scattered | | | atherosclerosis. No pleural effusion. No pneumothorax. Lung | | | parenchyma demonstrates patchy ground-glass airspace opacity within | | | the upper lobes, right greater than left. There is also noted to be | | | bibasilar ground-glass airspace opacity right greater than left. | | | Right middle lobe ground-glass airspace opacity is also noted. | | | Some nodularity is not noted associated with the ground-glass | | | opacities. Small hiatal hernia. Limited evaluation of abdominal | | | viscera. Prior cholecystectomy. Right renal cyst No acute bone | | | process. | | + + + + + | Procedure Note | + + | Randa, Rad Results In - 03/16/2018 3:12 PM PST EXAMINATION:CT ANGIOGRAM CHEST W | | CONTRASTHISTORY:Evaluate for PE/MalignancyCOMPARISON STUDY:March 16 | | 2018TECHNIQUE:1.25 mm axial slices were acquired through the lungs during an arterial | | phase of contrast. Multiplanar MIP reconstructions were performed. There was no post | | contrast reaction.DOSE REPORT:CTDIvol: 22.1 - 23.7 mGy. DLP: 763 mGy-cm. Automated | | exposure control was utilized.FINDINGS:The bolus of contrast is adequate.No pulmonary | | artery filling defect.Main pulmonary artery is prominent measuring 3.3 cm.Mediastinum | | and hilum demonstrate subcentimeter lymph nodes.Heart size is upper limits of normal.No | | pericardial effusion.Coronary arteries have scattered atherosclerosis.No pleural | | effusion.No pneumothorax.Lung parenchyma demonstrates patchy ground-glass airspace | | opacity within the upper lobes, right greater than left. There is also noted to be | | bibasilar ground-glass airspace opacity right greater than left. Right middle lobe | | ground-glass airspace opacity is also noted. Some nodularity is not noted associated | | with the ground-glass opacities.Small hiatal hernia.Limited evaluation of abdominal | | viscera. Prior cholecystectomy. Right renal cystNo acute bone process.IMPRESSION: | | IMPRESSION:1. Multifocal ground-glass opacities with some associated nodularity likely | | represents an infectious process. This should be followed resolution.2. Coronary artery | | disease.3. Cardiomegaly.4. Pulmonary hypertension.5. Prior cholecystectomy.Dictated by: | | Massimo Hutchinsonam | |Mediastinum and hilum demonstrate subcentimeter lymph nodes. | |Heart size is upper limits of normal. | |No pericardial effusion. | |Coronary arteries have scattered atherosclerosis. | |No pleural effusion. | |No pneumothorax. | |Lung parenchyma demonstrates patchy ground-glass airspace opacity within the upper lobes, r ight greater than left. There is also noted to be bibasilar ground-glass airspace opacity r ight greater than left. Right middle lobe ground-glass airspace | |opacity is also noted. Some nodularity is not noted associated with the ground-glass opaci ties. | |Small hiatal hernia. | |Limited evaluation of abdominal viscera. Prior cholecystectomy. Right renal cyst | |No acute bone process. | | | |IMPRESSION: | |IMPRESSION: | |1. Multifocal ground-glass opacities with some associated nodularity likely represents an i nfectious process. This should be followed resolution. | |2. Coronary artery disease. | |3. Cardiomegaly. | |4. Pulmonary hypertension. | |5. Prior cholecystectomy. | | | |Dictated by: Massimo Alba | | | | | + + + +---------+ + + | Performing | Address | City/State/Zipcode | Phone Number | | Organization | | | | + +---------+ + + | [facility] | | | | + +---------+ + + Urinalysis with Microscopic with Culture if Indicated (03/16/2018 10:11 AM PST) + + + + + [...] + + + | pH, Urine | 7.0 | 5.0 - 7.0 | [facility] | | | | | [facility] | | + + + + + + | Specific | 1.010 | 1.003 - 1.030 | [facility] | | | [place] | | | [facility] | | | [...] + + | [facility] | [address] | [place] [address] | [phone] | | [facility] | | | | + + + + + CT Head wo Contrast (03/16/2018 9:41 AM PST) + + | Specimen | + + | | + + + + + | Impressions | Performed At | + + + | IMPRESSION: 1. No acute intracranial process. 2. 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 3. Stable mild periventricular white matter | | | changes. 4. The results of the study were discussed with MACARIO | | | ROMARIO SIBLEY at 09:58 Dictated by: Massimo Alba | | | | | + + + + + + | Narrative | Performed At | + + + | EXAMINATION: CT HEAD WO CONTRAST HISTORY: EXTREMITY WEAKNESS | [facility] | | COMPARISON STUDY: October 22, 2016 TECHNIQUE: 5 mm axial slices | | | were acquired through the brain without contrast. DOSE REPORT: | | | Total exam DLP 716.68 mGy cm. Automated exposure control was | | | utilized. FINDINGS: No evidence of an acute intracranial | | | hemorrhage, mass lesion, or midline shift. The reinoso-white matter | | | interface is intact. The ventricles are symmetric. Sulci are mildly | | | prominent Basilar cisterns are patent. Remote right cerebellar | | | lacunar infarct. Mild periventricular white matter hypodensity. | | | Calcifications are noted within the cavernous internal carotid | | | arteries. Mild maxillary sinus mucosal thickening. Mastoid air cells | | | are clear. No fracture. | | + + + + + | Procedure Note | + + | Randa, Rad Results In - 03/16/2018 10:01 AM PST EXAMINATION: | | CT HEAD WO CONTRAST | | | | HISTORY: | | EXTREMITY WEAKNESS | | | | COMPARISON STUDY: | | October 22, 2016 | | | | TECHNIQUE: | | 5 mm axial slices were acquired through the brain without contrast. | | | | DOSE REPORT: | | Total exam DLP 716.68 mGy cm. Automated exposure control was utilized. | | | | FINDINGS: | | No evidence of an acute intracranial hemorrhage, mass lesion, or midline shift. | | The reinoso-white matter interface is intact. | | The ventricles are symmetric. | | Sulci are mildly prominent | | Basilar cisterns are patent. | | Remote right cerebellar lacunar infarct. | | Mild periventricular white matter hypodensity. | | Calcifications are noted within the cavernous internal carotid arteries. | | Mild maxillary sinus mucosal thickening. | | Mastoid air cells are clear. | | No fracture. | | | | IMPRESSION: | | IMPRESSION: | | 1. No acute intracranial process. | | 2. Stable remote right cerebellar infarct. | | 3. Stable mild periventricular white matter changes. | | 4. The results of the study were discussed with MACARIO SIBLEY at 09:58 | | | | | | | | Dictated by: Massimo Alba | | | | | + + + +---------+ + + | Performing | Address | City/State/Zipcode | Phone Number | | Organization | | | | + +---------+ + + | [facility] | | | | + +---------+ + + XR Chest AP Portable (03/16/2018 9:37 AM PST) + + | Specimen | + + | | + + + + + | Impressions | Performed At | + + + | IMPRESSION: Mild pulmonary edema. Dictated by: Massimo Alba | [facility] | | | | + + + + + + | Narrative | Performed At | + + + | EXAMINATION: XR CHEST AP PORTABLE HISTORY: EXTREMITY WEAKNESS | [facility] | | COMPARISON STUDY: February 28, 2018 FINDINGS: The lungs are | | | noted to have increased degree of vascular indistinctness. There is | | | cephalization of vessels. Few septal lines are present. No pleural | | | effusion. No pneumothorax. Heart size is stable. No acute | | | osseous process. | | + + + + + | Procedure Note | + + | Randa, Rad Results In - 03/16/2018 10:02 AM PST EXAMINATION:XR CHEST AP | | PORTABLEHISTORY:EXTREMITY WEAKNESSCOMPARISON STUDY:February 28, 2018FINDINGS:The lungs | | are noted to have increased degree of vascular indistinctness. There is cephalization | | of vessels. Few septal lines are present. No pleural effusion. No pneumothorax. | | Heart size is stable. No acute osseous process.IMPRESSION: IMPRESSION:Mild pulmonary | | edema.Dictated by: Massimo Acevesectronically Signed by: Massimo Alba on 03/16/2018 | | 9:59 AM | |February 28, 2018 | | | |FINDINGS: | |The lungs are noted to have increased degree of vascular indistinctness. There is cephaliz ation of vessels. Few septal lines are present. No pleural effusion. No pneumothorax. He art size is stable. No acute osseous process. | | | |IMPRESSION: | |IMPRESSION: | |Mild pulmonary edema. | | | |Dictated by: Massimo Alba | | | | | + + + +---------+ + + | Performing | Address | City/State/Zipcode | Phone Number | | Organization | | | | + +---------+ + + | [facility] | | | | + +---------+ + + TSH (03/16/2018 8:56 AM PST) + + + + + + | Component | Value | Ref Range | Performed | Pathologist | | | | | At | Signature | + + + + + + | TSH | 14.97 (H) | 0.36 - 3.74 | [facility] | [...] + + | [facility] | [address] | [place] [address] | [phone] | | [facility] | | | | + + + + + Magnesium (03/16/2018 8:56 AM PST) + +---------+ + + + | Component | Value | Ref Range | Performed | Pathologist | | | | | At | Signature | + +---------+ + + + | Magnesium | 1.7 (L) | 1.8 - 2.4 mg/dL | [...] + + | [facility] | [address] | [place] [address] | [phone] | | [facility] | | | | + + + + + CK Total (03/16/2018 8:56 AM PST) + +-------+ + + + | Component | Value | Ref Range | Performed | Pathologist | | | | | At | Signature | + +-------+ + + + | CK TOTAL | 70 | 39 - 308 U/L | [facility] | | | | [...] + + | [facility] | [address] | [place] [address] | [phone] | | [facility] | | | | + + + + + B Type Natriuretic Peptide (03/16/2018 8:56 AM PST) + +-------+ + + + | Component | Value | Ref Range | Performed | Pathologist | | | | | At | Signature | + +-------+ + + + | NT-proBNP | 218 | <=450 pg/mL | [facility] | | [...] + + | [facility] | [address] | [place] [address] | [phone] | | [facility] | | | | + + + + + Lactic Acid (03/16/2018 8:56 AM PST) + +-------+ + + + | Component | Value | Ref Range | Performed | Pathologist | | | | | At | Signature | + +-------+ + + + | Lactate | 1.6 | 0.4 - 2.1 | [facility] | [...] + + | [facility] | [address] | [place] [address] | [phone] | | [facility] | | | | + + + + + Troponin I (03/16/2018 8:56 AM PST) + +-------+ + + + [...] such as unstable angina or | [facility] | | non-Q wave myocardial infarction, cardiac troponin I levels provide | [facility] | | useful prognostic information and aid in early detection of such | [facility] | | patients with an increased risk of . The Risk Stratification | | | cutpoint for the Troponin I method is 0.1 ng/mL. The diagnostic | | | cutoff point for the diagnosis of [place] is 0.8 ng/mL for the Troponin I | | | method. | | + + + + + + + + | Performing | Address | City/State/Zipcode | Phone Number | | Organization | | | | + + + + + | [facility] | [address] | [place] [address] | [phone] | | [facility] | | | | + + + + + T4, Free (03/16/2018 8:56 AM PST) + +---------+ + + + | Component | Value | Ref Range | Performed | Pathologist | | | | | At | Signature | + +---------+ + + + | FT4 | 0.7 (L) | 0.8 - 1.5 ng/dL | [facility] [...] + + | [facility] | [address] | [place] [address] | [phone] | | [facility] | | | | + + + + + Comprehensive Metabolic Panel (03/16/2018 8:56 AM PST) + + + + + + | Component | Value | Ref Range | Performed | Pathologist | | | | | At | Signature | + + + + + + | Na | 140 | 132 - 143 | [facility] | | | | | mmol/L | [facility] | | | | | | [facility] | | + + + + + + | K | 4.9 | 3.3 - 4.9 | [facility] | [...] + + + + | CO2 | 29 | 23 - 34 mmol/L | [facility] | | | | | | [facility] | | + + + + + + | Anion Gap | 8 | 7 - 16 mmol/L | [facility] | | | | | | [facility] | | + + + + + + | Glucose | 142 (H) | 70 - 110 mg/dL | [facility] | [facility] | | | | | | [facility] | | + + + + + + | BUN | 21 | 5 - 26 mg/dL | [facility] | | | | | | [facility] | | + + + + + + | Creatinine | 1.29 | 0.70 - 1.40 | [facility] | | | | | mg/dL | [facility] | [facility] | | | | | | [facility] | | + + + + + + | eGFR if not | 54 (L)Comment: | >=60 | [facility] | | | | GLOMERULAR FILTRATION | mL/min/1.73m2 | [facility] | | | [place] | RATE,ESTIMATED | | [facility] | | | | mL/min/1.88f8Jkmt than | | LAB[facility]ATORY | | | [...] + + + + | Calcium | 8.4 | 8.3 - 10.0 | [facility] | [...] + + + + | Total | 6.8 | 6.6 - 8.5 g/dL | [facility] | | | Protein | | | [facility] | [facility] | | | | | | [facility] | | + + + + + + | AST | 36 | 0 - 38 U/L | [facility] | | | | | | [facility] | | + + + + + + | ALT | 58 | 16 - 63 U/L | [facility] | | | | | | [facility] | | + + + + + + | Alkaline | 61 | 46 - 116 U/L | [facility] | | | Phosphatase | | | [facility] | | | | | | [facility] | | + + + + + + | Globulin | 3.4 | 2.4 - 4.5 g/dL | [facility] | | | | [facility] | | | | | | [facility] | | + + + + + + | Albumin/Lizbeth | 1.0 | 0.8 - 2.0 | [facility] | | | bulin Ratio | | | [facility] | | | | | | [facility] | | + + + + + + | BUN/Creatin | 16.3 | 7.0 - 24.0 | [facility] | [...] + + | [facility] | [address] | [place] [address] | [phone] | | [facility] | | | | + + + + + CBC with Differential (03/16/2018 8:56 AM PST) + + + + + + | Component | Value | Ref Range | Performed | Pathologist | | | | | At | Signature | + + + + + + | WBC | 16.9 (H) | 4.6 - 10.5 K/uL | [facility] | | | | | [facility] | | | | | | [facility] | | + + + + + + | RBC | 4.36 | 4.36 - 5.83 | [facility] | | | | | M/uL | [facility] | | | | | | [facility]ORY | | + + + + + + | Hemoglobin | 12.8 (L) | 13.1 - 17.4 | [facility] | | | | | g/dL | [facility] | | | | | | [facility]ATORY | | + + + + + + | Hematocrit | 40.5 | 39.0 - 51.9 % | [facility] [...] + + + + | MCH | 29.4 | 27.7 - 32.3 pg | [facility] | | | | | [facility] | | | | | | [facility] | | + + + + + + | MCHC | 31.6 (L) | 32.0 - 36.9 | [facility] | | | | | g/dL | [facility] | | | | | | [facility] | | + + + + + + | RDW-CV | 17.6 (H) | 0.0 - 17.0 % | [facility] | | [facility] | | | | | | [facility] | | + + + + + + | Platelet | 130 (L) | 150 - 450 K/uL | [facility] | | | Count | | | [facility] | | | | | | [facility]ATORY | | + + + + + + | MPV | 11.7 | 9.4 - 12.4 fL | [facility] | | | | | [facility] | | | | | | [facility] | | + + + + + + | % | 83.0 (H) | 42.0 - 76.0 % | [facility] | | | Neutrophils | | | [facility] | | | | | | [facility]ATORY | | + + + + + + | % | 7.2 (L) | 20.0 - 40.0 % | [facility] | | | Lymphocytes | | | [facility] | | | | | | [facility]ATORY | | + + + + + + | % Monocytes | 7.4 | 3.0 - 13.0 % | [facility] [...] 0.2 | 0.0 - 2.0 % | [facility] | [facility] | | [facility] | | | | | | [facility] | | + + + + + + | % Immature | 0.5 | 0.0 - 0.5 % | [facility] | | | Granulocyte | | | [facility] | | | | | | LABORATORY | | + + + + + + | Absolute | 13.98 (H) | 2.80 - 7.70 | [facility] | | | Neutrophils | | K/uL | [facility] | | | | | | LABORATORY | | + + + + + + | Absolute | 1.21 | 1.20 - 3.30 | [facility] | | | Lymphocytes | | K/uL | [facility] | | | | | | LABORATORY | | + + + + + + | Absolute | 1.25 (H) | 0.00 - 0.80 | [facility] | | | Monocytes | | K/uL | [facility] | | | | | | LABORATORY | | + + + + + + | Absolute | 0.29 | 0.00 - 0.70 | [facility] | [...] + + + + | Absolute | 0.09 | 0.00 - 0.15 | [facility] | [...] + + | [facility] | [address] | [place] [address] | [phone] | | [facility] | | | | + + + + + ECG 12 lead (03/16/2018 8:50 AM PST) + + | Specimen | + + | | + + + + + | Narrative | Performed At | + + + | Heart Rate: 73 | [facility] | | bpmQRS Interval: 84 msQT Interval: 400 msQTC Interval: 441 msP [place]: | [facility] | | -6 degQRS [place]: -22 degT Wave [place]: 8 degP-R Interval: 168 msec- | | | OTHERWISE NORMAL ECG -SINUS RHYTHM [Remains]SIGNIFICANT ECG CONTOUR | | | CHANGES | | |QRS [place]: -22 deg | | |T Wave [place]: 8 deg | | |P-R Interval: 168 msec | | |- OTHERWISE NORMAL ECG - | | |SINUS RHYTHM [Remains] | | |SIGNIFICANT ECG CONTOUR CHANGES | | + + + + +---------+ + + | Performing | Address | City/State/Zipcode | Phone Number | | Organization | | | | + +---------+ + + | [facility] | | | | + +---------+ + + documented in this encounter Visit Diagnoses + + | Diagnosis | + + | Acute pulmonary edema (HCC) - Primary Acute edema of lung, unspecified | + + | Hypothyroidism, unspecified type | + + | Hypotension, unspecified hypotension type | + + | Acute respiratory failure with hypoxia (HCC) Acute respiratory failure | + + | Generalized weakness Other malaise and fatigue | + + documented in this encounter Administered Medications + +--------+---------+------+------+------+ | Medication Order | MAR | Action | Dose | Rate | Site | | | Action | Date | | | | + +--------+---------+------+------+------+ + +---+ | albuterol 2.5 mg/3 mL nebulizer | | | solution 2.5 mg 2.5 mg, | | | Nebulization, RT EVERY 4 HOURS | | | PRN, Shortness of Breath, | | | Starting 03/16/18 at 1638, RT | | | will administer., | | + +---+ | | | + +---+ + +-------+ +-------+---+---+ | albuterol-ipratropium 2.5-0.5 | Given | 03/16/20 | 3 mLs | | | | mg/3 mL nebulizer solution 3 mL | | 18 8:57 | | | | | 3 mL, Nebulization, RT Once, Mon | | AM PST | | | | | 03/16/18 at 0915, For 1 dose | | | | | | + +-------+ +-------+---+---+ +---+---+ | | | +---+---+ + +-------+ +--------+---+---+ | aspirin EC tablet 325 mg 325 | Given | 03/17/20 | 325 mg | | | | mg, Oral, DAILY, First dose on | | 18 9:08 | | | | | 03/17/18 at 0900 | | AM PST | | | | + +-------+ +--------+---+---+ +---+---+ | | | +---+---+ + +-------+ +-------+---+---+ | atorvaSTATin (LIPITOR) tablet | Given | 03/16/20 | 10 mg | | | | 10 mg 10 mg, Oral, NIGHTLY, | | 18 8:08 | | | | | First dose on 03/16/18 at | | PM PST | | | | | 2100 | | | | | | + +-------+ +-------+---+---+ +---+---+ | | | +---+---+ + +-------+ +--------+---+---+ | colchicine tablet 0.6 mg 0.6 | Given | 03/17/20 | 0.6 mg | | | | mg, Oral, EVERY MORNING, First | | 18 9:08 | | | | | dose on Fri03/17/18 at 0900, | | AM PST | | | | | Hold for diarrhea., | | | | | | + +-------+ +--------+---+---+ +---+---+ | | | +---+---+ + +-------+ +--------+---+---+ | cyanocobalamin (VITAMIN B-12) | Given | 03/17/20 | 1,000 | | | | tablet 1,000 mcg 1,000 mcg, | | 18 9:08 | mcg | | | | Oral, EVERY MORNING, First dose | | AM PST | | | | | on Fri03/16/18 at 1700 | | | | | | + +-------+ +--------+---+---+ +---+---+ | | | +---+---+ + +-------+ +-------+---+ + | enoxaparin (LOVENOX) 40 mg/0.4 | Given | 03/17/20 | 40 mg | | Abdomen- | | mL injection 40 mg 40 mg, | | 18 9:16 | | | LLQ | | Subcutaneous, EVERY 24 HOURS | | AM PST | | | | | (Daily), First dose on Mon | | | | | | | 03/16/18 at 1430 | | | | | | + +-------+ +-------+---+ + +-------+ +-------+---+ + | Given | 03/16/20 | 40 mg | | Abdomen- | | | 18 2:48 | | | RUQ | | | PM PST | | | | +-------+ +-------+---+ + +---+---+ | | | +---+---+ + +-------+ +---------+---+ + | insulin lispro (humaLOG) | Given | 03/16/20 | 1 Units | | Arm-Left | | injection (vial) 0-6 Units 0-6 | | 18 5:23 | | | Upper | | Units, Subcutaneous, 4 TIMES | | PM PST | | | | | DAILY WITH MEALS & NIGHTLY, First | | | | | | | dose on 03/16/18 at 1700, | | | | | | | CORRECTION SCALE: Blood Glucose | | | | | | | (BG) < 150: None BG | | | | | | | 150-200: DAY: 1 units. NIGHT: 0 | | | | | | | units BG 201-250: DAY: 2 | | | | | | | units. NIGHT: 1 units BG | | | | | | | 251-300: DAY: 3 units. NIGHT: 2 | | | | | | | units BG 301-350: DAY: 4 units. | | | | | | | NIGHT: 3 units BG 351-400: | | | | | | | DAY: 5 units. NIGHT: 4 units | | | | | | | BG > 400 : DAY: 6 units. | | | | | | | NIGHT: 5 units | | | | | | | AND CALL PROVIDER Use DAY | | | | | | | DOSE for doses scheduled: | | | | | | | AC, NPO, Daytime 9767-5658 Use | | | | | | | NIGHT DOSE for doses scheduled: | | | | | | | HS, 3AM, Nighttime 4700-8183 | | | | | | | Only for use with U-100 insulin | | | | | | | syringe., | | | | | | + +-------+ +---------+---+ + +---+---+ | | | +---+---+ + +-------+ +---------+---+---+ | iopamidol (ISOVUE-370) 370 | Given | 03/16/20 | 100 mLs | | | | mg/mL injection 100 mL 100 mL, | | 18 1:39 | | | | | Intravenous, ONCE PRN, Other, | | PM PST | | | | | Starting 03/16/18 at 1338, | | | | | | | For 1 dose, Cat Scanner | | | | | | + +-------+ +---------+---+---+ +---+---+ | | | +---+---+ + +---------+ +--------+-------+---+ | lactated ringers (LR) bolus | New Bag | 03/16/20 | 1,000 | 1000 | | | 1,000 mL 1,000 mL, Intravenous, | | 18 9:19 | mLs | mL/hr | | | Administer over 1 Hours, ONCE, | | AM PST | | | | | 03/16/18 at 0945, For 1 dose | | | | | | + +---------+ +--------+-------+---+ +---+---+ | | | +---+---+ + +-------+ +--------+---+---+ | levoFLOXacin (LEVAQUIN) tablet | Given | 03/17/20 | 500 mg | | | | 500 mg 500 mg, Oral, DAILY, | | 18 4:19 | | | | | First dose on Fri03/17/18 at | | PM PST | | | | | 1600, Give 2 hours before or 2 | | | | | | | hours after antacids, iron, or | | | | | | | zinc., Indications: Community | | | | | | | Acquired Pneumonia | | | | | | + +-------+ +--------+---+---+ +---+---+ | | | +---+---+ + +---------+ +--------+-------+---+ | levoFLOXacin in dextrose | New Bag | 03/16/20 | 500 mg | 100 | | | (LEVAQUIN) IVPB 500 mg 500 mg, | | 18 5:56 | | mL/hr | | | Intravenous, Administer over 60 | | PM PST | | | | | Minutes, DAILY, First dose on Fri | | | | | | | 03/16/18 at 1700, Indications: | | | | | | | Community Acquired Pneumonia | | | | | | + +---------+ +--------+-------+---+ +---+---+ | | | +---+---+ + +-------+ +--------+---+---+ | levothyroxine (SYNTHROID) 20 | Given | 03/16/20 | 80 mcg | | | | mcg/mL injection 80 mcg 80 mcg, | | 18 11:09 | | | | | Intravenous, ONCE, 03/16/18 | | AM PST | | | | | at 1115, For 1 dose | | | | | | + +-------+ +--------+---+---+ +---+---+ | | | +---+---+ + +-------+ +---------+---+---+ | levothyroxine (SYNTHROID) | Given | 03/17/20 | 200 mcg | | | | tablet 200 mcg 200 mcg, Oral, | | 18 6:23 | | | | | DAILY BEFORE BREAKFAST, First | | AM PST | | | | | dose on Fri03/17/18 at 0600, | | | | | | | Give before breakfast., | | | | | | + +-------+ +---------+---+---+ +---+---+ | | | +---+---+ + +---------+ +-----+ +---+ | magnesium sulfate 2 g/50 mL | New Bag | 03/16/20 | 2 g | 25 mL/hr | | | IVPB 2 g 2 g, Intravenous, | | 18 2:48 | | | | | Administer over 120 Minutes, | | PM PST | | | | | ONCE, 03/16/18 at 1445, For 1 | | | | | | | dose, Maximum recommended | | | | | | | infusion rate = 1 gram/hour., | | | | | | + +---------+ +-----+ +---+ +---+---+ | | | +---+---+ + +-------+ +-------+---+---+ | oxyCODONE (ROXICODONE) tablet | Given | 03/16/20 | 10 mg | | | | 10 mg 10 mg, Oral, 3 TIMES DAILY | | 18 8:07 | | | | | PRN, Pain, Starting 03/16/18 | | PM PST | | | | | at 1640 | | | | | | + +-------+ +-------+---+---+ +---+---+ | | | +---+---+ + +-------+ +-------+---+---+ | pantoprazole (PROTONIX) DR | Given | 03/17/20 | 40 mg | | | | tablet 40 mg 40 mg, Oral, DAILY | | 18 6:23 | | | | | BEFORE BREAKFAST, First dose on | | AM PST | | | | | 03/17/18 at 0600, Indication: | | | | | | | GERD | | | | | | + +-------+ +-------+---+---+ +---+---+ | | | +---+---+ + +-------+ +--------+---+---+ | pregabalin (LYRICA) capsule 300 | Given | 03/17/20 | 300 mg | | | | mg 300 mg, Oral, 2 TIMES DAILY, | | 18 9:09 | | | | | First dose on 03/16/18 at | | AM PST | | | | | 2100 | | | | | | + +-------+ +--------+---+---+ +-------+ +--------+---+---+ | Given | 03/16/20 | 300 mg | | | | | 18 8:08 | | | | | | PM PST | | | | +-------+ +--------+---+---+ +---+---+ | | | +---+---+ + +---------+ +---------+-------+---+ | sodium chloride 0.9% (NS) bolus | New Bag | 03/16/20 | 500 mLs | 500 | | | 500 mL 500 mL, Intravenous, | | 18 9:02 | | mL/hr | | | Administer over 1 Hours, ONCE, | | AM PST | | | | | 03/16/18 at 0900, For 1 dose | | | | | | + +---------+ +---------+-------+---+ +---+---+ | | | +---+---+ + +-------+ +--------+---+---+ | tamsulosin (FLOMAX) capsule 0.4 | Given | 03/16/20 | 0.4 mg | | | | mg 0.4 mg, Oral, NIGHTLY, First | | 18 8:07 | | | | | dose on Fri03/16/18 at 2100, | | PM PST | | | | | May open capsule and sprinkle | | | | | | | over acidic soft food | | | | | | | (applesauce, yogurt) or in a | | | | | | | small quantity of acidic fruit | | | | | | | juice (orange, grape). Do not | | | | | | | crush, chew or dissolve | | | | | | | granules., | | | | | | + +-------+ +--------+---+---+ +---+---+ | | | +---+---+ + +-------+ +--------+---+---+ | traZODone (DESYREL) tablet 100 | Given | 03/16/20 | 100 mg | | | | mg 100 mg, Oral, NIGHTLY, First | | 18 8:08 | | | | | dose on Fri03/16/18 at 2100 | | PM PST | | | | + +-------+ +--------+---+---+ +---+---+ | | | +---+---+ documented in this encounter
--- OUTSIDE RECORDS SUMMARY | ~2019-02-17 | XMS | Encounter Summary ---
Demographics + + + | Address | [address] | | | [place] [address] | + + + | Home Phone | | + + + | Preferred Language | Unknown | + + + | Marital Status | | + + + | Roman Catholic Affiliation | 1025 | + + + | Race | Unknown | + + + | Ethnic Group | Unknown | + + + Author + + + | Author | [facility] | | | and [place] | + + + | Organization | [facility] | | | [...] Team Providers + +------+ + | Care Radio Announcer Name | Role | Phone | + [...] | | | [facility] | Lawyer Probate-Clinical | | | | | [facility] [place], | | | | | | [place] [address] | | | | | | [phone] | | | +--------+ + + + [...] [place] | | | | | | [address] | | | | | | [phone] | | | | | | | | +--------+---------+ + + + | 02/26/ | Office | Urology | Lillie Fowler | | | 2018 | Visit | | [address]IE [address] | | | | | | [address] | | | | | | [place], [place] | | | | | | [address] | | | | | | [phone] | | | | | | | | +--------+---------+ + + + | 03/16/ | Office | Neurology | Theresa, | | | 2018 | Visit | | [address] | | | | | | [address] [place], | | | | | | [place] [address] | | | | | | [phone] | | | | | | | | +--------+---------+ + + + | 04/12/ | Office | Primary Care | Massimo Ramos | | | 2019 | Visit | | MD Fer [address] | | | | | | [place] | | | | | | [address] | | | | | | | | +--------+---------+ + + + | 10/03/ | Office | Neurology | Fabián Carias MD | | | 2019 | Visit | | [address] | | | | | | [place] | | | | | | [address] | | | | | | | [...] | | | care | | | Lawyer Probate-C | | | | | | | [...] | | | care | | | Lawyer Probate-C | | | | | | | [...] | | | care | | | Lawyer Probate-C | | | | | | | [...] | | | care | | | Lawyer Probate-C | | | | | | | [...]
--- OUTSIDE RECORDS SUMMARY | ~2019-02-17 | XMS | Encounter Summary ---
Demographics + + + | Address | [address] | | | [place] [address] | + + + | Home Phone | | + + + | Preferred Language | Unknown | + + + | Marital Status | | + + + | Sikh Affiliation | 1025 | + + + | Race | Unknown | + + + | Ethnic Group | Unknown | + + + Author + + + | Author | [facility] | | | and [place] | + + + | Organization | [facility] | | | [...] Team Providers + +------+ + | Care Cake Tester Name | Role | Phone | + +------+ + | Horacio Silvestre DO | PCP | | + +------+ + Encounter Details +--------+ + + + + | Date | Type | Department | Care Team | Description | +--------+ + + + + | 07/27/ | Imaging | [facility] | Provider, | | | 2019 | Exam | [facility] | [address] | | | | | IMAGING | [address] | | | | | [phone] | [place] [address] | | +--------+ + + + + [...] [place] | | | | | | [address] | | | | | | [phone] | | | | | | | | +--------+---------+ + + + | 02/26/ | Office | Urology | Lillie Fowler | | | 2018 | Visit | | [address] | | | | | | [address] | | | | | | [place], [place] | | | | | | [address] | | | | | | [phone] | | | | | | | | +--------+---------+ + + + | 03/16/ | Office | Neurology | Theresa, | | | 2018 | Visit | | [address] | | | | | | [address] [place], | | | | | | [place] [address] | | | | | | [phone] | | | | | | | | +--------+---------+ + + + | 04/12/ | Office | Primary Care | Massimo Ramos | | | 2019 | Visit | | MD eFr [address] | | | | | | [place] | | | | | | [address] | | | | | | | | +--------+---------+ + + + | 10/03/ | Office | Neurology | Fabián Carias MD | | | 2019 | Visit | | [address], [place] | | | | | | [place], [place] | | | | | | [address] | | | | | | | [...] | | | care | | | Etiology Teacher-C | | | | | | [...] | | | care | | | Etiology Teacher-C | | | | | | [...] | | | care | | | Etiology Teacher-C | | | | | | [...] | | | care | | | Etiology Teacher-C | | | | | | [...] CT HEAD WO CONTRAST | Routin | 07/24/2018 | | Results for this | | | e | 11:35 AM | | procedure are in the | | | | PDT | | results section. | + +--------+ + + + documented in this encounter Results CT Head wo Contrast (07/24/2018 11:35 AM PDT) + + | Specimen | + + | | + + + + + | Narrative | Performed At | + + + | External films for comparison only | [facility] | | | | | No results will be in the chart. | | + + + + +---------+ [...]
--- OUTSIDE RECORDS SUMMARY | ~2019-02-17 | XMS | Encounter Summary ---
Demographics + + + | Address | [address] | | | [place] [address] | + + + | Home Phone | | + + + | Preferred Language | Unknown | + + + | Marital Status | | + + + | Yarsani Affiliation | 1025 | + + + | Race | Unknown | + + + | Ethnic Group | Unknown | + + + Author + + + | Author | [facility] | | | and [place] | + + + | Organization | [facility] | | | [...] Team Providers + +------+ + | Care Oil And Gas Lease Pumper Name | Role | Phone | + [...] Tereza [address] | | | | | [phone] | [place] [address] | | +--------+ + + + + [...] [place] | | | | | | [address] | | | | | | [phone] | | | | | | | | +--------+---------+ + + + | 02/26/ | Office | Urology | Lillie Fowler | | | 2018 | Visit | | [address] | | | | | | [address] | | | | | | [place], [place] | | | | | | [address] | | | | | | [phone] | | | | | | | | +--------+---------+ + + + | 03/16/ | Office | Neurology | Theresa, | | | 2018 | Visit | | [address] | | | | | [address] [place], | | | | | | [place] [address] | | | | | | [phone] | | | | | | | | +--------+---------+ + + + | 04/12/ | Office | Primary Care | Massimo Ramos | | | 2019 | Visit | | MD Fer [address] | | | | | | [place] | | | | | | [address] | | | | | | | | +--------+---------+ + + + | 10/03/ | Office | Neurology | Fabián Carias MD | | | 2019 | Visit | | [address], [place] | | | | | | [place], [place] | | | | | | [address] | | | | | | | [...] | | | care | | | Irrigation Foreman-C | | | | | | | [...] | | | care | | | Irrigation Foreman-C | | | | | | | [...] | | | care | | | Irrigation Foreman-C | | | | | | | [...] | | | care | | | Irrigation Foreman-C | | | | | | | [...]
--- OUTSIDE RECORDS SUMMARY | ~2019-02-17 | XMS | Encounter Summary ---
Demographics + + + | Address | [address] | | | [place] [address] | + + + | Home Phone | | + + + | Preferred Language | Unknown | + + + | Marital Status | | + + + | Mu-Ism Affiliation | 1025 | + + + | Race | Unknown | + + + | Ethnic Group | Unknown | + + + Author + + + | Author | [facility] | | | and [place] | + + + | Organization | [facility] | | [...] Team Providers + +------+ + | Care Clinical Psychologist Private Practice Name | Role | Phone | + [...] | +--------+ + + + + | 01/09/ | Hospital | [facility] | Juan Williamson | Generalized weakness | | 2018 - | Encounter | [facility] | MD I[address]iah [address] | (Primary Dx); | | | | [address] [place] | [facility] | Community acquired | | 01/11/ | | [place] | [place] [address] | pneumonia, | | 2018 | | [address] | [phone] | unspecified | | | | [phone] | | laterality; Acute | | | | | Esteban Calvillo, | exacerbation of | | | | | [address] | chronic obstructive | | | | | [place] [address] | pulmonary disease | | | | | [phone] | (COPD) ([facility]) | | | | | | | [...] + + + | Blood Pressure | 135/92 | 01/11/2018 7:40 AM | | | | | PDT | | + + + + + | Pulse | 57 | 01/11/2018 7:40 AM | | | | | PDT | | + + + + + | Temperature | 36.8 C (98.24 F) | 01/11/2018 7:40 AM | | | | | PDT | | + + + + + | Respiratory Rate | 18 | 01/11/2018 7:40 AM | | | | | PDT | | + + + + + | Oxygen Saturation | 94% | 01/11/2018 7:40 AM | | | | | PDT | | + + + + + | Inhaled Oxygen | - | - | | | Concentration | | | | + + + + + | Weight | 97.2 kg (214 lb 4.6 | 01/09/2018 2:31 PM | | | | oz) | PDT | | + + + + + | Height | 167.6 cm (5' 6") | 01/09/2018 2:00 PM | | | | | PDT | | + + + + + | Body Mass Index | 34.59 | 01/09/2018 2:00 PM | | | | | PDT [...] encounter Discharge Summaries Esteban Calvillo MD - 01/11/2018 9:41 AM PDT MEDICAL HOSPITALIST DISCHARGE SUMMARY Pt. Name/Age/: Geraldo Mcfadden 77 y.o. 1940 Date of Admission: 01/09/2018 Date of Discharge: 01/11/2018 PCP: Horacio Silvestre Admitting Diagnosis: Weakness, lethargy. 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 analgesic 06/27/2017 Current use of beta marly 06/30/2017 Panlobular emphysema 08/08/2017 Atherosclerosis of [place] coronary artery of [place] heart without angina pectoris 08/08 On potassium wasting diuretic therapy 08/08/2017 Community acquired pneumonia, unspecified laterality 08/15/2017 Primary osteoarthritis involving multiple joints 09/30/2017 Vitamin D deficiency disease 09/30/2017 Resolved Ambulatory Problems Diagnosis Date Noted Neck pain, bilateral 12/15/2017 Chronic bilateral low back pain with bilateral sciatica 12/15/2017 Past Medical History: Diagnosis Date Carpal tunnel syndrome, bilateral 05/31/2013 DDD (degenerative disc disease), cervical 05/22/2013 Diabetes mellitus GERD (gastroesophageal reflux disease) Gout Hiatal hernia Hypertension Melanoma Melanoma 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, left Neck pain, chronic 05/22/2013 Neuropathy Paresthesias - both hands 05/22/2013 Thyroid disease Medications Reconciled upon Discharge are: Discharge Medications New Medications Details azithromycin 500 MG tablet Take 1 tablet by mouth Daily for 3 days. aka: ZITHROMAX cefuroxime 250 mg tablet Take 1 tablet by mouth 2 times daily for 5 days. aka: CEFTIN Unchanged Medications Details albuterol 90 mcg/puff inhaler Inhale 2 puffs into the lungs every 4 hours as needed for Wheezing. Or coughing aspirin 325 mg tablet Take 325 mg by mouth every morning. atorvaSTATin 10 mg tablet Take 10 mg by mouth nightly. aka: LIPITOR colchicine 0.6 mg tablet Take 0.6 mg by mouth every morning. cyanocobalamin 1000 MCG tablet Take 1,000 mcg by mouth every morning. aka: VITAMIN B-12 fluticasone 50 mcg/nasal spray 2 sprays by Nasal route nightly as needed for Allergies. aka: FLONASE insulin aspart 100 units/mL injection Inject 10 Units under the skin every morning (before breakfast). Checks BG 30 minutes afte r eating + Additional 15 units for BG >250 aka: novoLOG insulin glargine 100 units/mL injection (vial) Inject 35 Units under the skin nightly. aka: LANTUS Insulin Syringe-Needle U-100 31G X 5/16" 0.5 ML Misc 1 each by Does not apply route 4 times daily (before meals and nightly). Use with Lantus a nd Novolog levothyroxine 175 MCG tablet Take 1 tablet by mouth every morning (before breakfast). aka: SYNTHROID losartan 50 mg tablet Take 50 mg by mouth every morning. aka: COZAAR omeprazole 20 mg capsule Take 1 capsule by mouth every morning (before breakfast). aka: priLOSEC ondansetron 4 mg disintegrating tablet Take 1 tablet by mouth every 6 hours as needed for Nausea or Vomiting. aka: ZOFRAN ODT oxyCODONE 10 MG Tabs Take 1 tablet by mouth 3 times daily as needed for Pain. pregabalin 300 MG capsule Take 1 capsule by mouth 2 times daily. aka: LYRICA tamsulosin 0.4 mg Caps Take 1 capsule by mouth nightly. aka: FLOMAX traZODone 50 mg tablet Take 100 mg by mouth nightly. aka: TAMIKO Clinical Resume: Please see hospital notes for complete details of this service. In brief, this is a 77-yea r-old male who presented to the emergency department with weakness and lethargy. He was not ed to be mildly tachypnea In the ER. His oxygen saturations were found to be in the mid to low 80% range on room air. Chest x-ray which was obtained in the emergency department showe d a posterior basal opacity on the lateral view. The patient had a markedly elevated white blood cell count with a left shift. He was diagnosed with community-acquired pneumonia, and admitted [facility] the [facility]. Patient was started on broad-spectrum antibiotics, supplemental oxygen, and nebulizer treat ments. Over the next 2 days his condition improved slowly but steadily. Oxygen was weaned off. The patient is maintaining adequate oxygen saturations with exertion and ambulation on room air. Today, I will transition the patient to oral antibiotics. He is stable for discharge to [facility]. Of note, the patient's platelet counts were borderline low. I think this is a reactive pro cess. Platelet count is stable. It will need to be followed periodically as an outpatient. Physical Examination: General: Alert and oriented 3. Normal respiratory effort. Cardiovascular: Regular rate and rhythm. No murmur. Respiratory: Clear to auscultation bilaterally. Abdomen: Bowel sounds are auscultated. Abdomen was soft, nondistended and nontender. Extremities: Trace edema bilaterally to ankles. Skin: No rash. Neurological: Spontaneously moving all 4 extremities. Psychiatric: Normal mood, engaging affect. Significant tests and procedures during admission: Xr Chest Pa And Lateral Result Date: 01/09/2018 EXAMINATION: XR CHEST PA AND LATERAL HISTORY: WEAKNESS COMPARISON STUDY: 08/19/2017 FINDING S: On the lateral view posterior lower lung zone patchy parenchymal opacity is present view decreased density demonstrated overlying the lower vertebrae thorax. The finding likely is below the level of the diaphragm on frontal view. Heart size mildly prominent. No pleural e ffusion seen. The bones appear demineralized. Monitor wires project over the thorax. IMPRESSION: 1. Posterior basal opacity seen on lateral view. Follow-up to lateral recommen ded to demonstrate resolution. 2. Mild cardiomegaly. 3. The bones appear demineralized. Dict ated by: Troy Lawrence Xr Shoulder Left 2 + Vw Result Date: 12/15/2017 EXAMINATION: XR SHOULDER LEFT 2 + VW HISTORY: left shoulder pain COMPARISON STUDY: None FIN DINGS: The acromioclavicular joint has mild hypertrophic change. The glenohumeral joint is i ntact. Minimal productive change of the inferior glenoid. No glenohumeral subluxation or di slocation. Normal bone density. Visualized thorax and ribs are unremarkable. IMPRESSION: 1. No acute process 2. Mild degenerative change. Dictated by: Massimo Norris ectronically Signed by: Massimo Alba on 12/15/2017 12:03 PM Recommended follow up labs/imaging/tests: Follow-up chest x-ray (PA and lateral) in 4-6 weeks to document resolution of pneumonia. Repeat CBC in 4 weeks to evaluate thrombocytopenia. Pending inpatient studies at time of discharge: None Disposition: Home Follow-Up Plans: Horacio Silvestre DO [address] [place] [id number] Schedule an appointment as soon as possible for a visit in 1 week F/U pneumonia. Esteban Calvillo, 01/11/2018 Time spent discharging this patient: 25 minutes spent caring for this patient. documented in this encounter Discharge Instructions AttachmentsThe following attachments cannot be sent through Care Everywhere.Adult, Pneumoni a (Estonian)documented in this encounter Medications at Time of [...] +---------+ + + | azithromycin | Take 1 tablet by | 3 | 0 | 01/12/20 | | | (ZITHROMAX) 500 MG | mouth Daily for 3 | tablet | | 18 | 8 | | tablet | days. | | | | | + + + +---------+ + + | cefuroxime | Take 1 tablet by | 10 | 0 | 01/12/20 | | | (CEFTIN) 250 mg | mouth 2 times daily | tablet | | 18 | 8 | | tablet | for 5 days. | | | [...] fluticasone | 2 sprays by Nasal | | 0 | | | | (FLONASE) 50 | route nightly as | | | | 8 | | mcg/nasal spray | needed for [...] | | | | | | disease, snf | | | | | | | [...] documented as of this encounter Progress Notes Vivek Juares, PharmD - 01/11/2018 11:04 AM PDTFormatting of this note might be jeimy t from the original. PHARMACY SERVICES: DISCHARGE MEDICATION TEACHING Geraldo Mcfadden is a 77 y.o. male. Counseled pt on discharge medications - cefuroxime an d azithromycin. Discussed when to take next dose of medication and side effects including di arrhea and allergic rxn. Educated pt to avoid taking with calcium, magnesium, or multivitami n to avoid interaction. Discharge Medications New Medications Details azithromycin 500 MG tablet Take 1 tablet by mouth Daily for 3 days. aka: ZITHROMAX cefuroxime 250 mg tablet Take 1 tablet by mouth 2 times daily for 5 days. aka: CEFTIN Unchanged Medications Details albuterol 90 mcg/puff inhaler Inhale 2 puffs into the lungs every 4 hours as needed for Wheezing. Or coughing aspirin 325 mg tablet Take 325 mg by mouth every morning. atorvaSTATin 10 mg tablet Take 10 mg by mouth nightly. aka: LIPITOR colchicine 0.6 mg tablet Take 0.6 mg by mouth every morning. cyanocobalamin 1000 MCG tablet Take 1,000 mcg by mouth every morning. aka: VITAMIN B-12 fluticasone 50 mcg/nasal spray 2 sprays by Nasal route nightly as needed for Allergies. aka: FLONASE insulin aspart 100 units/mL injection Inject 10 Units under the skin every morning (before breakfast). Checks BG 30 minutes afte r eating + Additional 15 units for BG >250 aka: novoLOG insulin glargine 100 units/mL injection (vial) Inject 35 Units under the skin nightly. aka: LANTUS Insulin Syringe-Needle U-100 31G X 5/16" 0.5 ML Misc 1 each by Does not apply route 4 times daily (before meals and nightly). Use with Lantus a nd Novolog levothyroxine 175 MCG tablet Take 1 tablet by mouth every morning (before breakfast). aka: SYNTHROID losartan 50 mg tablet Take 50 mg by mouth every morning. aka: COZAAR omeprazole 20 mg capsule Take 1 capsule by mouth every morning (before breakfast). aka: priLOSEC ondansetron 4 mg disintegrating tablet Take 1 tablet by mouth every 6 hours as needed for Nausea or Vomiting. aka: ZOFRAN ODT oxyCODONE 10 MG Tabs Take 1 tablet by mouth 3 times daily as needed for Pain. pregabalin 300 MG capsule Take 1 capsule by mouth 2 times daily. aka: LYRICA tamsulosin 0.4 mg Caps Take 1 capsule by mouth nightly. aka: FLOMAX traZODone 50 mg tablet Take 100 mg by mouth nightly. aka: TAMIKO Electronically signed by: Vivek Juares PharmD 01/11/2018 11:04 Esteban Mccormick MD - 01/10/2018 10:16 AM PDT MEDICAL HOSPITALIST TEAM PROGRESS NOTE Name:Geraldo Durbin [facility] Day # 1 Reason for admission and continued stay: Geraldo Mcfadden is a 77 y.o. male hospitalized for Community acquired pneumonia, unspecified laterality Assessment and Plan: Principal Problem: Community acquired pneumonia, unspecified laterality Active Problems: Generalized weakness Dehydration Type 2 diabetes mellitus with diabetic polyneuropathy, with long-term current use of insu gely #1 community acquired pneumonia. Improving. Continue IV antibiotic regimen. #2 diabetes mellitus. Adequately controlled. Continue current regimen. #3 dehydration. Resolved. Saline lock IV. Encourage oral intake. #4 anticipated days until discharge and disposition: Home tomorrow on oral antibiotics. Subjective/ROS: Feeling much better. Strength dramatically improved. Breathing is close to baseline. Nursing is weaning his oxygen off now. No fever or chills. No nausea vomiting or diarrhea. No chest pain or palpitations. Objective: Most recent vital signs: BP 131/70 | Pulse 57 | Temp 36.5 C (97.7 F) (Oral) | Resp 18 | Ht 1.676 m (5' 6") | Wt 97.2 kg (214 lb 4.6 oz) | SpO2 91% | BMI 34.59 kg/m Vital sign ranges for last 24hrs: Input and output for last 24hrs: Temp: [36.5 C (97.7 F)-36.9 C (98.42 F)] 36.5 C (97.7 F) Pulse: [57-86] 57 Resp: [16-24] 18 BP: (117-146)/(68-95) 131/70 SpO2 Av.9 % Min: 91 % Max: 95 % Flow (L/min) Av.9 Min: 0.5 Max: 1 01/08 1901 - 01/10 0700 In: 3001 [P.O.:400; I.V.:1300] Out: 1625 [Urine:1625] Physical Examination: General: Alert and oriented 3. Feeling much better today. Cardiovascular: Regular rate and rhythm. Respiratory: Few late inspiratory crackles bilaterally to bases. Improved with cough. No wheezing. Abdomen: Benign. Extremities: No cyanosis clubbing or edema. Skin: No rash. Neurological: Spontaneously moving all 4 extremities. Psychiatric: Normal mood, engaging affect. Physical Exam Last 8 glucose values: Recent Labs Lab 01/10/18 0736 01/10/18 0606 01/09/18 2037 01/09/18 1650 01/09/18 1040 POCGLU 100 -- 141* 102 -- GLU -- 105 -- -- 151* Labs/Studies: Recent Labs Lab 01/10/18 0606 01/09/18 1040 WBC 11.9* 22.6* HGB 11.9* 13.6 HCT 36.7* 41.0 PLT 105* 121* Recent Labs Lab 01/10/18 0606 01/09/18 1040 NA 142 141 K 4.0 4.2 CL 107 105 CO2 29 25 BUN 14 16 CREA 0.96 1.17 GLU 105 151* CALCIUM 8.2* 8.9 BILITOT -- 0.7 AST -- 26 ALT -- 33 ALKPHOS -- 79 ALBUMIN -- 3.5 Xr Chest Pa And Lateral Result Date: 01/09/2018 EXAMINATION: XR CHEST PA AND LATERAL HISTORY: WEAKNESS COMPARISON STUDY: 08/19/2017 FINDING S: On the lateral view posterior lower lung zone patchy parenchymal opacity is present view decreased density demonstrated overlying the lower vertebrae thorax. The finding likely is below the level of the diaphragm on frontal view. Heart size mildly prominent. No pleural e ffusion seen. The bones appear demineralized. Monitor wires project over the thorax. IMPRESSION: 1. Posterior basal opacity seen on lateral view. Follow-up to lateral recommen ded to demonstrate resolution. 2. Mild cardiomegaly. 3. The bones appear demineralized. Dict ated by: Troy Lawrence Esteban Calvillo MD, MD 01/10/2018 Portions of this chart may have been created with voice recognition software. Occasional wo rd or "sound-alike" substitutions may have occurred due to the inherent limitation of voice recognition software. Read the chart carefully and recognize, using context, where these sub stitutions have occurred. ivek Juares, PharmD - 01/09/2018 2:14 PM PDTMedication History Completed Medication history was completed using: -interview with Patient (fair historian) -medications brought in from home Pt reports he did not take any of his home medications this morning 01/09/18. Major discrepancies noted: pt brought in only oral medications for verification - states he only uses 1 inhaler, albuterol; I removed spiriva from his med list. Also uses some of his meds different than prescribed - takes colchecine once per day, uses x2 50mg tablets of traz odone at night, states he sometimes takes 2 or 3 oxycodone 10mg tablets qam. The insulin asp art he uses 10 units qam at breakfast, waits 20-30 minutes and takes an extra 15 units if hi s BG is "high" which he reports as >250. Please see [facility] med list for updated medication list. Electronically Signed by: Vivek Juares PharmD 01/09/2018 14:19 documented in th is encounter Plan of [...] [place] | | | | | | [address] | | | | | | [phone] | | | | | | | | +--------+---------+ + + + | 02/26/ | Office | Urology | Lillie Fowler | | | 2018 | Visit | | LILLIE Lopez [address] | | | | | [address] | | | | | | [place], [place] | | | | | | [address] | | | | | | [phone] | | | | | | | | +--------+---------+ + + + | 03/16/ | Office | Neurology | Theresa, | | | 2018 | Visit | | SHONDA Mckinney [address] [place], | | | | | | [place] [address] | | | | | | [phone] | | | | | | | | +--------+---------+ + + + | 04/12/ | Office | Primary Care | Massimo Ramos | | | 2019 | Visit | | MD Fer [address] | | | | | | [address] [place] | | | | | | [address] | | | | | | | | +--------+---------+ + + + | 10/03/ | Office | Neurology | Fabián Carias MD | | | 2019 | Visit | | [address] | | | | | | [place] | | | | | | [address] | | | | | | | | +--------+---------+ + + + + +------+--------+ + + | Name | Type | Priori | Associated Diagnoses | Date/Time | | | | ty | | | + +------+--------+ + + | ED INFORMATION | BRIT | Routin | | 01/09/2018 10:08 AM | | EXCHANGE | | e [...] | | | care | | | Structural Drafter-C | | | | | | | [...] | | | care | | | Structural Drafter-C | | | | | | | [...] | | | care | | | Structural Drafter-C | | | | | | | [...] | | | care | | | Structural Drafter-C | | | | | | | [...] + | POC GLUCOSE | Routin | 01/11/2018 | | Results for this | | | e | 7:33 AM | | procedure are in the | | | | PDT | | results section. | + +--------+ + + + | CBC WITH | Routin | 01/11/2018 | | Results for this | | DIFFERENTIAL | e | 5:54 AM | | procedure are in the | | | | PDT | | results section. | + +--------+ + + + | BASIC METABOLIC | Routin | 01/11/2018 | | Results for this | | PANEL | e | 5:54 AM | | procedure are in the | | | | PDT | | results section. | + +--------+ + + + | POC GLUCOSE | Routin | 01/10/2018 | | Results for this | | | e | 8:22 PM | | procedure are in the | | | | PDT | | results section. | + +--------+ + + + | POC GLUCOSE | Routin | 01/10/2018 | | Results for this | | | e | 4:32 PM | | procedure are in the | | | | PDT | | results section. | + +--------+ + + + | POC GLUCOSE | Routin | 01/10/2018 | | Results for this | | | e | 11:33 AM | | procedure are in the | | | | PDT | | results section. | + +--------+ + + + | POC GLUCOSE | Routin | 01/10/2018 | | Results for this | | | e | 7:36 AM | | procedure are in the | | | | PDT | | results section. | + +--------+ + + + | SLIDE REVIEW, | Routin | 01/10/2018 | | Results for this | | PERIPHERAL SMEAR | e | 6:06 AM | | procedure are in the | | | | PDT | | results section. | + +--------+ + + + | CBC WITH | Routin | 01/10/2018 | | Results for this | | DIFFERENTIAL | e | 6:06 AM | | procedure are in the | | | | PDT | | results section. | + +--------+ + + + | BASIC METABOLIC | Routin | 01/10/2018 | | Results for this | | PANEL | e | 6:06 AM | | procedure are in the | | | | PDT | | results section. | + +--------+ + + + | URINALYSIS WITH | STAT | 01/09/2018 | | Results for this | | MICROSCOPIC WITH | | 8:57 PM | | procedure are in the | | CULTURE IF INDICATED | | PDT | | results section. | + +--------+ + + + | POC GLUCOSE | Routin | 01/09/2018 | | Results for this | | | e | 8:37 PM | | procedure are in the | | | | PDT | | results section. | + +--------+ + + + | POC GLUCOSE | Routin | 01/09/2018 | | Results for this | | | e | 4:50 PM | | procedure are in the | | | | PDT | | results section. | + +--------+ + + + | XR CHEST PA AND | STAT | 01/09/2018 | | Results for this | | LATERAL | | 11:38 AM | | procedure are in the | | | | PDT | | results section. | + +--------+ + + + | CULTURE, BLOOD | STAT | 01/09/2018 | | Results for this | | | | 10:50 AM | | procedure are in the | | | | PDT | | results section. | + +--------+ + + + | LACTIC ACID | STAT | 01/09/2018 | | Results for this | | | | 10:50 AM | | procedure are in the | | | | PDT | | results section. | + +--------+ + + + | BLOOD GAS, ARTERIAL | STAT | 01/09/2018 | | Results for this | | | | 10:41 AM | | procedure are in the | | | | PDT | | results section. | + +--------+ + + + | TROPONIN I | STAT | 01/09/2018 | | Results for this | | | | 10:40 AM | | procedure are in the | | | | PDT | | results section. | + +--------+ + + + | CULTURE, BLOOD | STAT | 01/09/2018 | | Results for this | | | | 10:40 AM | | procedure are in the | | | | PDT | | results section. | + +--------+ + + + | CBC WITH | STAT | 01/09/2018 | | Results for this | | DIFFERENTIAL | | 10:40 AM | | procedure are in the | | | | PDT | | results section. | + +--------+ + + + | COMPREHENSIVE | STAT | 01/09/2018 | | Results for this | | METABOLIC PANEL | | 10:40 AM | | procedure are in the | | | | PDT | | results section. | + +--------+ + + + | ECG 12 LEAD | STAT | 01/09/2018 | | Results for this | | | | 10:23 AM | | procedure are in the | | | | PDT | | results section. | + +--------+ + + + | ED INFORMATION | Routin | 01/09/2018 | | | | EXCHANGE | e | 10:08 AM | | | | | | PDT | | | + +--------+ + + + +---+--------+ | | | | | Proced | | | ure | | | Note - | | | Randa, | | | Lab In | | | | | | Hlseve | | | n - | | | 10/05/ | | | 2018 | | | 10:09 | | | AM PDT | | [...] | | | FICATI | | | ON?10[birth year] | | | [birth year]/201 | | | 8 | | | 10:07? | | | MCFADDEN, | | | KENNET | | | H | | | J?MRN: | | | | | | [id number] | | | [id number] | | | ecurit | | | [...] | | | HORACIO | | | STANLE | | | Y, | | | D.O. | | | Family | | | | | | Medici | | | ne | | | [phone] | | | [phone] | | | [phone] | | | [phone] | | | [phone] | | | [phone] | | | Curren | | | t | | | PCP_Un | | | attrib | | | uted | | | Primar | | | [...] | | | fever | | | Aug | | | [...] | | | limb | | | May | | | 15, | | | 2018 | | | [place] | | | [place] | | | [place] | | | [place] | | | [place] | | | Emerge | | | ncy | | | Emerge | | | ncy | | | | | | Vomiti | | | ng | | | Nausea | | | | | | Advers | | | e | | | effect | | | of | | | unspec | | | ified | | | drugs, | | | | | | medica | | | ments | | | and | | | biolog | | | ical | | | substa | | | nces, | | | initia | | | l | | | encoun | | | ter | | | | | | Nausea | | | with | | | vomiti | | | ng, | | | unspec | | | ified | | | May | | | 11, | | | 2018 | | | [place] | | | [place] | | | [place] | | | [place] | | | [place] | | | Emerge | | | ncy | | | Emerge | | | ncy | | | | | | Nausea | | | | | | Vomiti | | | ng | | | (Sever | | | e) | | | Fever | | | (73 | | | Years | | | Old [place] | | | >) | | | Lobar | | | | | | pneumo | | | bebe, | | | unspec | | | ified | | | organi | | | sm | | | Recent | | | [...] | | | int | | | May | | | 11, | | | 2018 | | | [place] | | | [place] | | | [place] | | | [place] | | | [place] | | | Genera | | | l | | | Medici | | | ne | | | Inpati | | | ent | | | Lobar | | | | | | pneumo | | | [...] | | Hospit | | | al 5 | | | Total | | | 5 | | | Note: | | | Visits | | | | | | indica | | | te | | | total | | | known | | | visits | | | . | | | PDMP | | | Report | | | PDMP | | | report | | | [...] | +---+--------+ documented in this encounter Results POC Glucose (01/11/2018 7:33 AM PDT) + +-------+ + + + | Component | Value | Ref Range | Performed | Pathologist | | | | | At | Signature | + +-------+ + + + | Glucose, | 100 | 70 - 110 mg/dL | [facility] [...] + + | [facility] | [address] | [place] [address] | [phone] | | [facility] | | | | + + + + + Basic Metabolic Panel (01/11/2018 5:54 AM PDT) + +-------+ + + + | Component | Value | Ref Range | Performed | Pathologist | | | | | At | Signature | + +-------+ + + + | Na | 140 | 132 - 143 | [facility] | | | | | mmol/L | [facility] | | | | [facility] | | | | | | [facility]ATORY | | + +-------+ + + + | K | 3.7 | 3.3 - 4.9 | [facility] | | | | | mmol/L | [facility] | | [facility] | | | [facility] | | + +-------+ + + + | Cl | 104 | 95 - 108 mmol/L | [facility] | | | | | [facility] | | | | | [facility] | | + +-------+ + + + | CO2 | 28 | 23 - 34 mmol/L | [facility] [...] +-------+ + + + | Glucose | 99 | 70 - 110 mg/dL | [facility] | | | | [facility] | | | | [facility] | | + +-------+ + + + | BUN | 18 | 5 - 26 mg/dL | [facility] | | | | [facility] | | | | | [facility] | | + +-------+ + + + | Creatinine | 1.01 | 0.70 - 1.40 | [facility] | | | | | mg/dL | [facility] | | | | | [facility] | | + +-------+ + + + | eGFR if not | >60 | >=60 | [facility] | | | | | mL/min/1.73m2 | [facility] | | [facility] | | + +-------+ + + + | Calcium | 8.6 | 8.3 - 10.0 | [facility] | | | | | mg/dL | [facility] | | | | | | [facility] | | + +-------+ + + + | BUN/Creatin | 17.8 | 7.0 - 24.0 | [facility] | [...] + + | [facility] | [address] | [place] [address] | [phone] | | [facility] | | | | + + + + + CBC with Differential (01/11/2018 5:54 AM PDT) + + + + + + | Component | Value | Ref Range | Performed | Pathologist | | | | | At | Signature | + + + + + + | WBC | 8.6 | 4.6 - 10.5 K/uL | [facility] | | | | | [facility] | | [facility] | | + + + + + + | RBC | 4.10 (L) | 4.36 - 5.83 | [facility] | | | | | M/uL | [facility] | | | | | [facility] | | + + + + + + | Hemoglobin | 12.1 (L) | 13.1 - 17.4 | [facility] | | | | | g/dL | [facility] | | | | | [facility] | | + + + + + + | Hematocrit | 36.7 (L) | 39.0 - 51.9 % | [facility] | [facility] | | [facility] | | | | | [facility] | | + + + + + + | MCV | 89.5 | 82.0 - 96.0 fL | [facility] [...] + + + + | MCHC | 33.0 | 32.0 - 36.9 | [facility] | [...] + + + + | Platelet | 135 (L) | 150 - 450 K/uL | [facility] | | | Count | | | [facility] | | | | | [facility] | | + + + + + + | MPV | 12.3 | 9.4 - 12.4 fL | [facility] | | | | | | [facility] | | | | | [facility] | | + + + + + + | % | 54.0 | 42.0 - 76.0 % | [facility] | | | Neutrophils | | | [facility] | | | | | | [facility] | | + + + + + + | % | 19.3 (L) | 20.0 - 40.0 % | [facility] | | | Lymphocytes | | | [facility] | | | | | | [facility] | | + + + + + + | % Monocytes | 17.0 (H) | 3.0 - 13.0 % | [facility] | | | | | [facility] | | | | | [facility] | | + + + + + + | % | 8.5 (H) | 0.0 - 7.0 % | [...] + + + + | Absolute | 4.62 | 2.80 - 7.70 | [facility] | [...] + + + + | Absolute | 1.45 (H) | 0.00 - 0.80 | [facility] | | | Monocytes | | K/uL | [facility] | | | | | [facility] | | + + + + + + | Absolute | 0.73 (H) | 0.00 - 0.70 | [facility] | | | Eosinophils | | K/uL | [facility] | | | | | | [facility] | | + + + + + + | Absolute | 0.03 | 0.00 - 0.20 | [facility] | [...] + + | [facility] | [address] | [place] [address] | [phone] | | [facility] | | | | + + + + + POC Glucose (01/10/2018 8:22 PM PDT) + +---------+ + + + | Component | Value | Ref Range | Performed | Pathologist | | | | | At | Signature | + +---------+ + + + | Glucose, | 111 (H) | 70 - 110 mg/dL | [...] + + | [facility] | [address] | [place] [address] | [phone] | | [facility] | | | | + + + + + POC Glucose (01/10/2018 4:32 PM PDT) + +-------+ + + + | Component | Value | Ref Range | Performed | Pathologist | | | | | At | Signature | + +-------+ + + + | Glucose, | 93 | 70 - 110 mg/dL | [facility] [...] + + | [facility] | [address] | [place] [address] | [phone] | | [facility] | | | | + + + + + POC Glucose (01/10/2018 11:33 AM PDT) + +---------+ + + + | Component | Value | Ref Range | Performed | Pathologist | | | | | At | Signature | + +---------+ + + + | Glucose, | 154 (H) | 70 - 110 mg/dL | [...] + + | [facility] | [address] | [place] [address] | [phone] | | [facility] | | | | + + + + + POC Glucose (01/10/2018 7:36 AM PDT) + +-------+ + + + | Component | Value | Ref Range | Performed | Pathologist | | | | | At | Signature | + +-------+ + + + | Glucose, | 100 | 70 - 110 mg/dL | [facility] [...] + + | [facility] | [address] | [place] [address] | [phone] | | [facility] | | | | + + + + + Slide Review, Peripheral Smear (01/10/2018 6:06 AM PDT) + + + + + [...] + + + + + + | Ovalocytes | Slight (A) | (none) | [facility] | | | | [facility] | | + + + + + + | RBC | Slight (A) | (none) | [facility] | | | Microcytes | | | [facility] | | | | | | [facility] | | + + + + + + | Tear Drop | Slight (A) | (none) | [facility] | | | Cells | | | [facility] | | | [...] + + | [facility] | [address] | [place] [address] | [phone] | | [facility] | | | | + + + + + CBC with Differential (01/10/2018 6:06 AM PDT) + + + + + + | Component | Value | Ref Range | Performed | Pathologist | | | | | At | Signature | + + + + + + | WBC | 11.9 (H) | 4.6 - 10.5 K/uL | [facility] | | | | | [facility] | | | | | | [facility] | | + + + + + + | RBC | 4.06 (L) | 4.36 - 5.83 | [facility] | | | | | M/uL | [facility] | | | | | [facility] | | + + + + + + | Hemoglobin | 11.9 (L) | 13.1 - 17.4 | [facility] | | | | | g/dL | [facility] | | | | | | [facility] | | + + + + + + | Hematocrit | 36.7 (L) | 39.0 - 51.9 % | [facility] | | | | | [facility] | | | | | | [facility] | | + + + + + + | MCV | 90.4 | 82.0 - 96.0 fL | [facility] [...] + + + + | MCHC | 32.4 | 32.0 - 36.9 | [facility] | [...] + + + + | Platelet | 105 (L) | 150 - 450 K/uL | [facility] | | | Count | | | [facility] | | | | | [facility] | | + + + + + + | MPV | | 9.4 - 12.4 fL | [facility] | | | | | [facility] | | | | | | [facility] | | + + + + + + | % | 65.8 | 42.0 - 76.0 % | [facility] | | | Neutrophils | | | [facility] | | | | | | [facility] | | + + + + + + | % | 14.7 (L) | 20.0 - 40.0 % | [facility] | | | Lymphocytes | | | [facility] | | | | | | [facility] | | + + + + + + | % Monocytes | 13.2 (H) | 3.0 - 13.0 % | [facility] | | | | | [facility] | | | | | | [facility] | | + + + + + + | % | 5.2 | 0.0 - 7.0 % | [facility] [...] + + + + | Absolute | 7.81 (H) | 2.80 - 7.70 | [facility] | | | Neutrophils | | K/uL | [facility] | | | | | | [facility] | | + + + + + + | Absolute | 1.74 | 1.20 - 3.30 | [facility] | | | Lymphocytes | | K/uL | [facility] | | | | | | [facility] | | + + + + + + | Absolute | 1.57 (H) | 0.00 - 0.80 | [facility] | | | Monocytes | | K/uL | [facility] | | | | | | [facility] | | + + + + + + | Absolute | 0.62 | 0.00 - 0.70 | [facility] | [...] + + + + | Absolute | 0.08 | 0.00 - 0.15 | [facility] | [...] + + | [facility] | [address] | [place] [address] | [phone] | | [facility] | | | | + + + + + Basic Metabolic Panel (01/10/2018 6:06 AM PDT) + +---------+ + + + | Component | Value | Ref Range | Performed | Pathologist | | | | | At | Signature | + +---------+ + + + | Na | 142 | 132 - 143 | [facility] | | | | | mmol/L | [facility] | | | | | | [facility] | | + +---------+ + + + | K | 4.0 | 3.3 - 4.9 | [facility] | | | | | mmol/L | [facility] | | | | | | [facility] | | + +---------+ + + + | Cl | 107 | 95 - 108 mmol/L | [facility] | | | | | [facility] | | | | | | [facility] | | + +---------+ + + + | CO2 | 29 [...] +---------+ + + + | Glucose | 105 | 70 - 110 mg/dL | [facility] | | | | | [facility] | | + +---------+ + + + | BUN | 14 | 5 - 26 mg/dL | [facility] | | | | | [facility] | | | | | [facility] | | + +---------+ + + + | Creatinine | 0.96 | 0.70 - 1.40 | [facility] | | | | | mg/dL | [facility] | | | | | | [facility] | | + +---------+ + + + | eGFR if not | >60 | >=60 | [facility] | | | | | mL/min/1.73m2 | [facility] | | | | | [facility] | | + +---------+ + + + | Calcium | 8.2 (L) | 8.3 - 10.0 | [facility] | | | | | mg/dL | [facility] | | | | | | [facility] | | + +---------+ + + + | BUN/Creatin | 14.6 | 7.0 - 24.0 | [facility] | [...] + + | [facility] | [address] | [place] [address] | [phone] | | [facility] | | | | + + + + + Urinalysis with Microscopic with Culture if Indicated (01/09/2018 8:57 PM PDT) + + + + + + | Component | Value | Ref Range | Performed | Pathologist | | | | | At | Signature | + + + + + + | Color | Pale Yellow | Pale Yellow, | [facility] | [...] + + + | pH, Urine | 6.0 | 5.0 - 7.0 | [facility] | | | | | | [facility] | | | | | | [facility] | | + + + + + + | Specific | 1.010 | 1.003 - 1.030 | [facility] | | | [place] | | | [facility] | | | | | | [facility] | | + + + + + + | Protein, | Negative | Negative | [facility] | [...] + + + + | Leukocyte | Negative | Negative | [facility] | [...] + + + + | SQUAMOUS | None Seen | None Seen /LPF | [facility] | [...] + + | [facility] | [address] | [place] [address] | [phone] | | [facility] | | | | + + + + + POC Glucose (01/09/2018 8:37 PM PDT) + +---------+ + + + | Component | Value | Ref Range | Performed | Pathologist | | | | | At | Signature | + +---------+ + + + | Glucose, | 141 (H) | 70 - 110 mg/dL | [...] + + | [facility] | [address] | [place] [address] | [phone] | | [facility] | | | | + + + + + POC Glucose (01/09/2018 4:50 PM PDT) + +-------+ + + + | Component | Value | Ref Range | Performed | Pathologist | | | | | At | Signature | + +-------+ + + + | Glucose, | 102 | 70 - 110 mg/dL | [facility] [...] + + | [facility] | [address] | [place] [address] | [phone] | | [facility] | | | | + + + + + XR Chest PA and Lateral (01/09/2018 11:38 AM PDT) + + | Specimen | + + | | + + + + + | Impressions | Performed At | + + + | IMPRESSION: 1. Posterior basal opacity seen on lateral view. | [facility] | | Follow-up to lateral recommended to demonstrate resolution. 2. Mild | | | cardiomegaly. 3. The bones appear demineralized. Dictated by: | | | Troy Lawrence Electronically Signed by: Troy Lawrence on | | | 01/09/2018 11:46 AM | | + + + + + + | Narrative | Performed At | + + + | EXAMINATION: XR CHEST PA AND LATERAL HISTORY: WEAKNESS | [facility] | | COMPARISON STUDY: 08/19/2017 FINDINGS: On the lateral view | | | posterior lower lung zone patchy parenchymal opacity is present view | | | decreased density demonstrated overlying the lower vertebrae thorax. | | | The finding likely is below the level of the diaphragm on frontal | | | view. Heart size mildly prominent. No pleural effusion seen. | | | The bones appear demineralized. Monitor wires project over the | | | thorax. | | + + + + + | Procedure Note | + + | Randa, Rad Results In - 01/09/2018 11:49 AM PDT EXAMINATION:XR CHEST PA AND | | LATERALHISTORY:WEAKNESSCOMPARISON STUDY:08/19/2017FINDINGS:On the lateral view posterior | | lower lung zone patchy parenchymal opacity is present view decreased density | | demonstrated overlying the lower vertebrae thorax. The finding likely is below the | | level of the diaphragm on frontal view.Heart size mildly prominent. No pleural effusion | | seen. The bones appear demineralized. Monitor wires project over the | | thorax.IMPRESSION: IMPRESSION:1. Posterior basal opacity seen on lateral view. | | Follow-up to lateral recommended to demonstrate resolution.2. Mild cardiomegaly.3. The | | bones appear demineralized.Dictated by: Troy Lawrence | |On the lateral view posterior lower lung zone patchy parenchymal opacity is present view de creased density demonstrated overlying the lower vertebrae thorax. The finding likely is be low the level of the diaphragm on frontal view. | | | |Heart size mildly prominent. No pleural effusion seen. The bones appear demineralized. M onitor wires project over the thorax. | | | |IMPRESSION: | |IMPRESSION: | |1. Posterior basal opacity seen on lateral view. Follow-up to lateral recommended to demon strate resolution. | |2. Mild cardiomegaly. | |3. The bones appear demineralized. | | | |Dictated by: Troy Lawrence | | | | | + + + +---------+ + + | Performing | Address | City/State/Zipcode | Phone Number | | Organization | | | | + +---------+ + + | [facility] | | | | + +---------+ + + Lactic Acid (01/09/2018 10:50 AM PDT) + +-------+ + + + [...] + + | [facility] | [address] | [place] [address] | [phone] | | [facility] | | | | + + + + + Culture, Blood (01/09/2018 10:50 AM PDT) + + + + [...] + + | [facility] | [address] | [place] [address] | [phone] | | [facility] | | | | + + + + + Blood Gas, Arterial (01/09/2018 10:41 AM PDT) + +--------+ + + + | Component | Value | Ref Range | Performed | Pathologist | | | | | At | Signature | + +--------+ + + + | pH Temp | 7.44 | 7.35 - 7.45 | [facility] | | | Corrected, | | | [facility] | | | [facility] | | | [facility] | | | | | | [facility] | | + +--------+ + + + | pCO2 Temp | 38 | 35 - 45 mmHg | [facility] | | | Corrected, | | | [facility] | | [facility] | | | | | | [facility] | | + +--------+ + + + | pO2 Temp | 66 (L) | 69 - 116 mmHg | [facility] | | | Corrected, | | | [facility] | | | [facility] | | [facility] | | | | | | [facility] | | + +--------+ + + + | pH, | 7.45 | 7.35 - 7.45 | [facility] | | | Arterial | | | [facility] | | | | | | [facility] | | + +--------+ + + + | pCO2, | 38 | 35 - 45 mm Hg | [facility] | | | Arterial | | | [facility] | | | | | | [facility] | | + +--------+ + + + | pO2, | 66 (L) | 69 - 116 mm Hg | [facility] | | | Arterial | | | [facility] | | | | | | [facility] | | + +--------+ + + + | HCO3, | 26.0 | 17.0 - 28.0 | [facility] | | | Arterial | | mmol/L | [facility] | | | | | | [facility] | | + +--------+ + + + | Base | 2.0 | -2.4 - 2.3 | [facility] | | | Excess, | | mmol/L | [facility] | | | [facility] | | [facility] | | | | | | [facility] | | + +--------+ + + + | TCO2, | 27 (H) | 21 - 25 mmol/L | [facility] | | | Arterial | | | [facility] | | | | | | [facility] | | + +--------+ + + + | O2 | 94 (L) | 95 - 99 % | [facility] | | | Saturation, | | | [facility] | | [facility] | | | | | | [facility] | | + +--------+ + + + | FiO2 | 28.0 | % | [facility] | | | | | [facility] | | | | | | [facility] | | + +--------+ + + + | PATIENT | 37 | | [facility] | | | TEMP | | | [facility] | | | | | | [facility] | | + +--------+ + + + + + | Specimen | + + | Blood - Artery | | sample (specimen) | + + + + + + + | Performing | Address | City/State/Zipcode | Phone Number | | Organization | | | | + + + + + | [facility] | [address] | [place] [address] | [phone] | | [facility] | | | | + + + + + Troponin I (01/09/2018 10:40 AM PDT) + +-------+ + + + [...] | cutoff point for the diagnosis of RI is 0.8 ng/mL for the Troponin I | | | method. | | + + + + + + + + | Performing | Address | City/State/Zipcode | Phone Number | | Organization | | | | + + + + + | [facility] | [address] | [place] [address] | [phone] | | [facility] | | | | + + + + + Comprehensive Metabolic Panel (01/09/2018 10:40 AM PDT) + + + + + + | Component | Value | Ref Range | Performed | Pathologist | | | | | At | Signature | + + + + + + | Na | 141 | 132 - 143 | [facility] | | | | | mmol/L | [facility] | | | | | | [facility] | | + + + + + + | K | 4.2 | 3.3 - 4.9 | [facility] | | | | | mmol/L | [facility] | | | | | | [facility] | | + + + + + + | Cl | 105 | 95 - 108 mmol/L | [facility] [...] + + + + | Glucose | 151 (H) | 70 - 110 mg/dL | [facility] | | | | | [facility] | | | | | | [facility] | | + + + + + + | BUN | 16 | 5 - 26 mg/dL | [facility] | | | | | [facility] | | | | | | [facility] | | + + + + + + | Creatinine | 1.17 | 0.70 - 1.40 | [facility] | | | | | mg/dL | [facility] | | | | | | [facility] | | + + + + + + | eGFR if not | 60Comment: GLOMERULAR | >=60 | [facility] | | | | FILTRATION | mL/min/1.73m2 | [facility] | | [facility] | RATE,ESTIMATED | | [facility] | | | | mL/min/1.17z1Higr than | | LABORATORY | | | [...] + + + + | Albumin | 3.5 | 3.0 - 4.5 g/dL | [facility] | | | | | | [facility] | [facility] | | | | | | [facility] | | + + + + + + | Bilirubin | 0.7 | 0.0 - 1.2 mg/dL | [facility] | | | Total | | | [facility] | | | | | | [facility] | | + + + + + + | Total | 7.3 | 6.6 - 8.5 g/dL | [facility] | | | Protein | | | [facility] | | | | [facility] | | | | | | [facility] | | + + + + + + | AST | 26 | 0 - 38 U/L | [facility] | | | | | [facility] | | | | | | [facility] | | + + + + + + | ALT | 33 | 16 - 63 U/L | [facility] | | [facility] | | | | | | [facility] | | + + + + + + | Alkaline | 79 | 46 - 116 U/L | [facility] [...] + + + + | BUN/Creatin | 13.7 | 7.0 - 24.0 | [facility] | [...] + + | [facility] | [address] | [place] [address] | [phone] | | [facility] | | | | + + + + + CBC with Differential (01/09/2018 10:40 AM PDT) + + + + + + | Component | Value | Ref Range | Performed | Pathologist | | | | | At | Signature | + + + + + + | WBC | 22.6 (H) | 4.6 - 10.5 K/uL | [facility] | | [facility] | | | | | | [facility] | | + + + + + + | RBC | 4.63 | 4.36 - 5.83 | [facility] | | | | | M/uL | [facility] | | | | | | [facility] | | + + + + + + | Hemoglobin | 13.6 | 13.1 - 17.4 | [facility] | | | | | g/dL | [facility] | | | | | | [facility] | | + + + + + + | Hematocrit | 41.0 | 39.0 - 51.9 % | [facility] | [facility] | | | [facility] | | | | | | [facility] | | + + + + + + | MCV | 88.6 | 82.0 - 96.0 fL | [facility] [...] + + + + | MCHC | 33.2 | 32.0 - 36.9 | [facility] | [...] + + + + | Platelet | 121 (L) | 150 - 450 K/uL | [facility] | | | Count | | | [facility] | | | | | | [facility] | | + + + + + + | MPV | 10.5 | 9.4 - 12.4 fL | [facility] | | | | | | [facility] | | | | | | [facility] | | + + + + + + | % | 86.9 (H) | 42.0 - 76.0 % | [facility] | | | Neutrophils | | | [facility] | | | | | | [facility] | | + + + + + + | % | 5.4 (L) | 20.0 - 40.0 % | [facility] | | | Lymphocytes | | | [facility] | | | | | | [facility] | | + + + + + + | % Monocytes | 6.0 | 3.0 - 13.0 % | [facility] | | | | | [facility] | | | | | | [facility] | | + + + + + + | % | 0.8 | 0.0 - 7.0 % | [facility] | | | Eosinophils | | | [facility] | | | | | | [facility] | | + + + + + + | % Basophils | 0.3 | 0.0 - 2.0 % | [facility] | | | | | | [facility] | | | | | | [facility] | | + + + + + + | % Immature | 0.6 (H) | 0.0 - 0.5 % | [facility] | | | Granulocyte | | | [facility] | | | [facility] | | | [facility] | | | | | | LAB[facility]ATORY | | + + + + + + | Absolute | 19.70 (H) | 2.80 - 7.70 | [facility] | | | Neutrophils | | K/uL | [facility] | | | | | | [facility] | | + + + + + + | Absolute | 1.22 | 1.20 - 3.30 | [facility] | | | Lymphocytes | | K/uL | [facility] | | | | | | [facility] | | + + + + + + | Absolute | 1.35 (H) | 0.00 - 0.80 | [facility] [...] | 0.06 | 0.00 - 0.20 | [facility] | | | Basophils | | K/uL | [facility] | | | | | | [facility] | | + + + + + + | Absolute | 0.14 | 0.00 - 0.15 | [facility] | [...] + + | [facility] | [address] | [place] [address] | [phone] | | [facility] | | | | + + + + + Culture, Blood (01/09/2018 10:40 AM PDT) + + + + + [...] + + | [facility] | [address] | [place] [address] | [phone] | | [facility] | | | | + + + + + ECG 12 lead (01/09/2018 10:23 AM PDT) + + | Specimen | + + | | + + + + + | Narrative | Performed At | + + + | Heart Rate: 72 | [facility] | | bpmQRS Interval: 84 msQT Interval: 372 msQTC Interval: 408 msP [place]: | TRACEMASTER | | degQRS [place]: -48 degT Wave [place]: 23 degP-R Interval: msec- | | | ABNORMAL ECG -WANDERING ATRIAL PACEMAKERLEFT ANTERIOR FASCICULAR BLOCK | | | [Remains]LATE PRECORDIAL R/S TRANSITION [Now Present]SIGNIFICANT | | | RHYTHM CHANGES[Now Absent] SINUS RHYTHM | | |T Wave [place]: 23 deg | | |P-R Interval: msec | | |- ABNORMAL ECG - | | |WANDERING ATRIAL PACEMAKER | | |LEFT ANTERIOR FASCICULAR BLOCK [Remains] | | |LATE PRECORDIAL R/S TRANSITION [Now Present] | | |SIGNIFICANT RHYTHM CHANGES | | [...] + | Diagnosis | + + | Generalized weakness Other malaise and fatigue | + + | Community acquired pneumonia, unspecified laterality | + + | Acute exacerbation of chronic obstructive pulmonary disease (COPD) (HCC) Obstructive | | chronic bronchitis with exacerbation | + + | Dehydration | + + | Type 2 diabetes mellitus with complication, with long-term current use of insulin | | (HCC) | + + documented in this encounter Admitting Diagnoses + + | Diagnosis | + + | Community acquired pneumonia, unspecified laterality | + + | Generalized weakness Other malaise and fatigue | + + documented in this encounter Administered Medications + +--------+---------+------+------+------+ | Medication Order | MAR | Action | Dose | Rate | Site | | | Action | Date | | | | + +--------+---------+------+------+------+ + +---+ | acetaminophen (TYLENOL) tablet | | | 650 mg 650 mg, Oral, EVERY 4 | | | HOURS PRN, Pain, or fever >= 38.6 | | | C (101.5 F), Starting Fri | | | 01/09/18 at 1412 | | + +---+ | | | + +---+ | albuterol 2.5 mg/3 mL nebulizer | | | solution 2.5 mg 2.5 mg, | | | Nebulization, RT EVERY 4 HOURS | | | PRN, Shortness of Breath, | | | Starting 01/09/18 at 1413, RT | | | will administer., | | + +---+ | | | + +---+ | albuterol-ipratropium 2.5-0.5 | | | mg/3 mL nebulizer solution 3 mL | | | 3 mL, Nebulization, RT EVERY 6 | | | HOURS PRN, Shortness of Breath, | | | Starting 01/09/18 at 1413 | | + +---+ | | | + +---+ + +-------+ +--------+---+---+ | aspirin EC tablet 325 mg 325 | Given | 01/12/20 | 325 mg | | | | mg, Oral, DAILY, First dose on | | 18 8:31 | | | | | 01/09/18 at 1715 | | AM PDT | | | | + +-------+ +--------+---+---+ +-------+ +--------+---+---+ | Given | 01/11/20 | 325 mg | | | | | 18 9:39 | | | | | | AM PDT | | | | +-------+ +--------+---+---+ | Given | 01/10/20 | 325 mg | | | | | 18 5:43 | | | | | | PM PDT | | | | +-------+ +--------+---+---+ +---+---+ | | | +---+---+ + +-------+ +-------+---+---+ | atorvaSTATin (LIPITOR) tablet | Given | 01/11/20 | 10 mg | | | | 10 mg 10 mg, Oral, NIGHTLY, | | 18 8:31 | | | | | First dose on Fri01/09/18 at 2100 | | PM PDT | | | | + +-------+ +-------+---+---+ +-------+ +-------+---+---+ | Given | 01/10/20 | 10 mg | | | | | 18 9:10 | | | | | | PM PDT | | | | +-------+ +-------+---+---+ +---+---+ | | | +---+---+ + +---------+ +--------+-------+---+ | azithromycin (ZITHROMAX) 500 mg | New Bag | 01/10/20 | 500 mg | 250 | | | in sodium chloride 0.9% 250 mL | | 18 11:10 | | mL/hr | | | IVPB 500 mg, Intravenous, | | AM PDT | | | | | Administer over 60 Minutes, ONCE, | | | | | | | 01/09/18 at 1045, For 1 dose, | | | | | | | Activate system and mix before | | | | | | | use., Indications: Community | | | | | | | Acquired Pneumonia | | | | | | + +---------+ +--------+-------+---+ +---+---+ | | | +---+---+ + +---------+ +--------+-------+---+ | azithromycin (ZITHROMAX) 500 mg | New Bag | 01/11/20 | 500 mg | 250 | | | in sodium chloride 0.9% 250 mL | | 18 10:29 | | mL/hr | | | IVPB 500 mg, Intravenous, | | AM PDT | | | | | Administer over 60 Minutes, | | | | | | | DAILY, First dose on 01/10/18 | | | | | | | at 0900, For 3 days, Activate | | | | | | | system and mix before use., | | | | | | | Indications: Community Acquired | | | | | | | Pneumonia | | | | | | + +---------+ +--------+-------+---+ +---+---+ | | | +---+---+ + +---------+ +-----+-------+---+ | cefTRIAXone (ROCEPHIN) 1 g in | New Bag | 01/10/20 | 1 g | 100 | | | sodium chloride 0.9% 50 mL IVPB | | 18 10:51 | | mL/hr | | | 1 g, Intravenous, Administer over | | AM PDT | | | | | 30 Minutes, ONCE, 01/09/18 at | | | | | | | 1045, For 1 dose, Activate | | | | | | | system and mix before use., | | | | | | | Indications: Community Acquired | | | | | | | Pneumonia | | | | | | + +---------+ +-----+-------+---+ +---+---+ | | | +---+---+ + +---------+ +-----+-------+---+ | cefTRIAXone (ROCEPHIN) 1 g in | New Bag | 01/12/20 | 1 g | 100 | | | sodium chloride 0.9% 50 mL IVPB | | 18 9:43 | | mL/hr | | | 1 g, Intravenous, Administer over | | AM PDT | | | | | 30 Minutes, EVERY 24 HOURS | | | | | | | INTERVAL, First dose on Sat | | | | | | | 01/10/18 at 0900, For 5 days, | | | | | | | Activate system and mix before | | | | | | | use., Indications: Community | | | | | | | Acquired Pneumonia | | | | | | + +---------+ +-----+-------+---+ +---------+ +-----+-------+---+ | New Bag | 01/11/20 | 1 g | 100 | | | | 18 9:46 | | mL/hr | | | | AM PDT | | | | +---------+ +-----+-------+---+ +---+---+ | | | +---+---+ + +-------+ +--------+---+---+ | colchicine tablet 0.6 mg 0.6 | Given | 01/12/20 | 0.6 mg | | | | mg, Oral, EVERY MORNING, First | | 18 8:31 | | | | | dose on 01/10/18 at 1045, Hold | | AM PDT | | | | | for diarrhea., | | | | | | + +-------+ +--------+---+---+ +-------+ +--------+---+---+ | Given | 01/11/20 | 0.6 mg | | | | | 18 10:32 | | | | | | AM PDT | | | | +-------+ +--------+---+---+ +---+---+ | | | +---+---+ + +-------+ +-------+---+ + | enoxaparin (LOVENOX) 40 mg/0.4 | Given | 01/11/20 | 40 mg | | Abdomen- | | mL injection 40 mg 40 mg, | | 18 9:49 | | | LLQ | | Subcutaneous, EVERY 24 HOURS | | AM PDT | | | | | (Daily), First dose on Fri | | | | | | | 01/09/18 at 1430 | | | | | | + +-------+ +-------+---+ + +-------+ +-------+---+ + | Given | 01/10/20 | 40 mg | | Abdomen- | | | 18 3:02 | | | RLQ | | | PM PDT | | | | +-------+ +-------+---+ + +---+---+ | | | +---+---+ + +-------+ +---------+---+ + | influenza quadrivalent | Given | 01/12/20 | 0.5 mLs | | Deltoid- | | (FLUZONE, FLUARIX, AFLURIA | | 18 6:35 | | | Right | | QUADRIVALENT) vaccine injection | | AM PDT | | | | | (syringe) 0.5 mL 0.5 mL, | | | | | | | Intramuscular, 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 Dru prior to use., | | | | | | | | | | | | | + +-------+ +---------+---+ + +---+---+ | | | +---+---+ + +-------+ + +---+ + | insulin glargine (LANTUS) 100 | Given | 01/11/20 | 20 Units | | Arm-Righ | | units/mL injection (vial) 20 | | 18 9:49 | | | t Upper | | Units 20 Units, Subcutaneous, | | PM PDT | | | | | NIGHTLY, First dose on Fri | | | | | | | 01/09/18 at 2100, For subcutaneous | | | | | | | use only. Basal (long acting) | | | | | | | insulin. Only for use with U-100 | | | | | | | insulin syringe., | | | | | | + +-------+ + +---+ + +-------+ + +---+ + | Given | 01/10/20 | 20 Units | | Arm-Left | | | 18 9:11 | | | Upper | | | PM PDT | | | | +-------+ + +---+ + +---+---+ | | | +---+---+ + +-------+ +---------+---+ + | insulin lispro (humaLOG) 100 | Given | 01/11/20 | 1 Units | | Arm-Left | | units/mL injection (vial) 0-6 | | 18 11:59 | | | Upper | | Units 0-6 Units, Subcutaneous, 4 | | AM PDT | | | | | TIMES DAILY WITH MEALS & | | | | | | | NIGHTLY, First dose on Fri | | | | | | | 01/09/18 at 1700, CORRECTION | | | | | | | SCALE: Blood Glucose (BG) < | | | | | | | 150: None BG | | | | | | | 150-200: DAY: 1 units. NIGHT: 0 | | | | | | | units BG 201-250: DAY: 2 units. | | | | | | | NIGHT: 1 units BG 251-300: | | | | | | | DAY: 3 units. NIGHT: 2 units | | | | | | | BG 301-350: DAY: 4 units. NIGHT: | | | | | | | 3 units BG 351-400: DAY: 5 | | | | | | | units. NIGHT: 4 units BG > | | | | | | | 400 : DAY: 6 units. NIGHT: 5 | | | | | | | units | | | | | | | AND CALL PROVIDER Use DAY DOSE | | | | | | | for doses scheduled: AC, | | | | | | | NPO, Daytime [id number] Use NIGHT | | | | | | | DOSE for doses scheduled: | | | | | | | HS, 3AM, Nighttime [id number] Only | | | | | | | for use with U-100 insulin | | | | | | | syringe., | | | | | | + +-------+ +---------+---+ + +---+---+ | | | +---+---+ + +-------+ +---------+---+---+ | levothyroxine (SYNTHROID) | Given | 01/12/20 | 175 mcg | | | | tablet 175 mcg 175 mcg, Oral, | | 18 6:55 | | | | | DAILY BEFORE BREAKFAST, First | | AM PDT | | | | | dose on 01/10/18 at 0600, Give | | | | | | | before breakfast., | | | | | | + +-------+ +---------+---+---+ +-------+ +---------+---+---+ | Given | 01/11/20 | 175 mcg | | | | | 18 7:33 | | | | | | AM PDT | | | | +-------+ +---------+---+---+ +---+---+ | | | +---+---+ + +-------+ +-------+---+---+ | losartan (COZAAR) tablet 50 mg | Given | 01/12/20 | 50 mg | | | | 50 mg, Oral, EVERY MORNING, | | 18 8:31 | | | | | First dose on Fri01/09/18 at | | AM PDT | | | | | 1715, Hold for systolic blood | | | | | | | pressure less than 110., | | | | | | + +-------+ +-------+---+---+ +-------+ +-------+---+---+ | Given | 01/11/20 | 50 mg | | | | | 18 9:46 | | | | | | AM PDT | | | | +-------+ +-------+---+---+ | Given | 01/10/20 | 50 mg | | | | | 18 5:43 | | | | | | PM PDT | | | | +-------+ +-------+---+---+ + +---+ | | | + +---+ | ondansetron (ZOFRAN) injection | | | 4-8 mg 4-8 mg, Intravenous, | | | EVERY 6 HOURS PRN, Nausea, | | | Vomiting, Starting Fri01/09/18 at | | | 1412, First line agent, | | + +---+ | | | + +---+ + +-------+ +-------+---+---+ | oxyCODONE (ROXICODONE) tablet | Given | 01/11/20 | 10 mg | | | | 10 mg 10 mg, Oral, 3 TIMES DAILY | | 18 5:07 | | | | | PRN, Pain, Starting Fri01/09/18 | | AM PDT | | | | | at 1647 | | | | | | + +-------+ +-------+---+---+ +-------+ +-------+---+---+ | Given | 01/10/20 | 10 mg | | | | | 18 5:44 | | | | | | PM PDT | | | | +-------+ +-------+---+---+ +---+---+ | | | +---+---+ + +-------+ +-------+---+---+ | oxyCODONE (ROXICODONE) tablet | Given | 01/11/20 | 10 mg | | | | 10 mg 10 mg, Oral, DAILY | | 18 8:32 | | | | | EVENING, First dose on Sat | | PM PDT | | | | | 01/10/18 at 1800 | | | | | | + +-------+ +-------+---+---+ +---+---+ | | | +---+---+ + +-------+ +-------+---+---+ | oxyCODONE (ROXICODONE) tablet | Given | 01/12/20 | 30 mg | | | | 30 mg 30 mg, Oral, EVERY | | 18 8:32 | | | | | MORNING, First dose (after last | | AM PDT | | | | | modification) on 01/10/18 at | | | | | | | 1100 | | | | | | + +-------+ +-------+---+---+ +-------+ +-------+---+---+ | Given | 01/11/20 | 15 mg | | | | | 18 10:50 | | | | | | AM PDT | | | | +-------+ +-------+---+---+ +---+---+ | | | +---+---+ + +-------+ +-------+---+---+ | pantoprazole (PROTONIX) DR | Given | 01/12/20 | 40 mg | | | | tablet 40 mg 40 mg, Oral, DAILY | | 18 8:17 | | | | | BEFORE BREAKFAST, First dose on | | AM PDT | | | | | 01/10/18 at 0730, Indication: | | | | | | | GERD | | | | | | + +-------+ +-------+---+---+ +-------+ +-------+---+---+ | Given | 01/11/20 | 40 mg | | | | | 18 7:56 | | | | | | AM PDT | | | | +-------+ +-------+---+---+ + +---+ | | | + +---+ | polyethylene glycol (MIRALAX) | | | powder 17 g 17 g, Oral, DAILY | | | PRN, Constipation, Starting Fri | | | 01/09/18 at 1412, If docusate and | | | senna ineffective or not | | | ordered., | | + +---+ | | | + +---+ + +-------+ +--------+---+---+ | pregabalin (LYRICA) capsule 300 | Given | 01/12/20 | 300 mg | | | | mg 300 mg, Oral, 2 TIMES DAILY, | | 18 8:31 | | | | | First dose on 01/09/18 at | | AM PDT | | | | | 2100 | | | | | | + +-------+ +--------+---+---+ +-------+ +--------+---+---+ | Given | 01/11/20 | 300 mg | | | | | 18 8:31 | | | | | | PM PDT | | | | +-------+ +--------+---+---+ | Given | 01/11/20 | 300 mg | | | | | 18 9:41 | | | | | | AM PDT | | | | +-------+ +--------+---+---+ +---+---+ | | | +---+---+ + +---------+ +--------+-------+---+ | sodium chloride 0.9% (NS) bolus | New Bag | 01/10/20 | 1,000 | 2000 | | | 1,000 mL 1,000 mL, Intravenous, | | 18 10:40 | mLs | mL/hr | | | Administer over 30 Minutes, | | AM PDT | | | | | ONCE, 01/09/18 at 1045, For 1 | | | | | | | dose | | | | | | + +---------+ +--------+-------+---+ +---+---+ | | | +---+---+ + +---------+ +---------+-------+---+ | sodium chloride 0.9% (NS) | New Bag | 01/10/20 | 100 mLs | 100 | | | infusion at 100 mL/hr, | | 18 12:34 | | mL/hr | | | Intravenous, CONTINUOUS, Starting | | PM PDT | | | | | 01/09/18 at 1045 | | | | | | + +---------+ +---------+-------+---+ +---+---+ | | | +---+---+ + +---------+ +---+-------+---+ | sodium chloride 0.9% (NS) | New Bag | 01/11/20 | | 100 | | | infusion at 100 mL/hr, | | 18 2:10 | | mL/hr | | | Intravenous, CONTINUOUS, Starting | | AM PDT | | | | | 01/09/18 at 1430 | | | | | | + +---------+ +---+-------+---+ +---------+ +---+-------+---+ | New Bag | 01/10/20 | | 100 | | | | 18 3:01 | | mL/hr | | | | PM PDT | | | | +---------+ +---+-------+---+ +---+---+ | | | +---+---+ + +-------+ +--------+---+---+ | tamsulosin (FLOMAX) capsule 0.4 | Given | 01/11/20 | 0.4 mg | | | | mg 0.4 mg, Oral, NIGHTLY, First | | 18 8:31 | | | | | dose on Fri01/09/18 at 2100, May | | PM PDT | | | | | open capsule and sprinkle over | | | | | | | acidic soft food (applesauce, | | | | | | | yogurt) or in a small quantity of | | | | | | | acidic fruit juice (orange, | | | | | | | grape). Do not crush, chew or | | | | | | | dissolve granules., | | | | | | + +-------+ +--------+---+---+ +-------+ +--------+---+---+ | Given | 10/05/20 | 0.4 mg | | | | | 18 9:10 | | | | | | PM PDT | | | | +-------+ +--------+---+---+ +---+---+ | | | +---+---+ + +-------+ +--------+---+---+ | traZODone (DESYREL) tablet 100 | Given | 01/11/20 | 100 mg | | | | mg 100 mg, Oral, NIGHTLY, First | | 18 8:31 | | | | | dose on 01/09/18 at 2100 | | PM PDT | | | | + +-------+ +--------+---+---+ +-------+ +--------+---+---+ | Given | 01/10/20 | 100 mg | | | | | 18 9:11 | | | | | | PM PDT | | | | +-------+ +--------+---+---+ +---+---+ | | | +---+---+ documented in this encounter
--- OUTSIDE RECORDS SUMMARY | ~2019-02-17 | XMS | Encounter Summary ---
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 Name | Role | Phone | [...] | +--------+ + + + + | 09/10/ | Telephone | [facility] | Horacio Silvestre, | Medication Refill | | 2018 | | [facility] | DO [address] | | | | | [facility] [address] | [facility], [place] | | | | | [address] [place], | [address] | | | | | [place] [address] | [phone] | | | | | [phone] | | | +--------+ + + + [...] 02/25/ | Office | General Surgery | Bello De Oliveiraw | | | 2019 | Visit | | DO Jalen [address] | | | | | | [address] | | | | | | [place], [place] | | | | | | [address] | | | | | | [phone] | | | | | | | | +--------+---------+ + + + | 02/26/ | Office | Urology | Lillie Fowler | | | 2018 | Visit | | LILLIE Lopez [address] | | | | | | [address] | | | | | | [place], [place] | | | | | | [address] | | | | | | [phone] | | | | | | | | +--------+---------+ + + + | 03/16/ | Office | Neurology | Theresa, | | | 2018 | Visit | | SHONDA [address] | | | | | [address] [place], | | | | | | [place] [address] | | | | | | [phone] | | | | | | | | +--------+---------+ + + + | 04/12/ | Office | Primary Care | Massimo Ramos Pedro Luis | | | 2019 | Visit | | MD Fer [address] | | | | | | [address] [place] | | | | | | [address] | | | | | | | | +--------+---------+ + + + | 10/03/ | Office | Neurology | Fabián Carias MD | | | 2019 | Visit | | [address] | | | | | | [place] | | | | | | [address] | | | | | | | [...] | | | care | | | Appliance Painter And Refinisher-C | | | | | | | [...] | | | care | | | Appliance Painter And Refinisher-C | | | | | | | [...] | | | care | | | Appliance Painter And Refinisher-C | | | | | | | [...] | | | care | | | Appliance Painter And Refinisher-C | | | | | | | [...] | | unspecified | + + | superintendent terminal current use of opiate analgesic Encounter for long-term (current) use of | | other medications | + + | Bilateral carpal tunnel syndrome Carpal tunnel syndrome | + + documented in this encounter"
--- OUTSIDE RECORDS SUMMARY | ~2019-02-17 | XMS | Encounter Summary ---
Demographics + + + | Address | [address] | | | [place] [address] | + + + | Home Phone [...] Team Providers + +------+ + | Care Piping Supervisor Name | Role | Phone | [...] Description | +--------+--------+ + + + | 09/24/ | Refill | [place] [facility] | Horacio Silvestre, | Medication Refill | | 2017 | | [facility] | [address] | | | | | [facility] [address] | [facility], [place] | | | | | [address] [place], | [address] | | | | | [place] [address] | [phone] | | | | | [phone] | | | +--------+--------+ + + + [...] [place] | | | | | | [address] | | | | | | [phone] | | | | | | | | +--------+---------+ + + + | 02/26/ | Office | Urology | Lillie Fowler | | | 2018 | Visit | | LILLIE Lopez [address] | | | | | | [address] | | | | | | [place], [place] | | | | | | [address] | | | | | | [phone] | | | | | | | | +--------+---------+ + + + | 03/16/ | Office | Neurology | Theresa, | | | 2018 | Visit | | SHONDA M[address] | | | | | | [address] [place], | | | | | | [place] [address] | | | | | | [phone] | | | | | | | | +--------+---------+ + + + | 04/12/ | Office | Primary Care | Massimo Ramos | | | 2019 | Visit | | MD Fer [address] | | | | | | [place] | | | | | | [address] | | | | | | | | +--------+---------+ + + + | 10/03/ | Office | Neurology | Fabián Carias MD | | | 2019 | Visit | | [address] | | | | | | [place] | | | | | | [address] | | | | | | | [...]
--- OUTSIDE RECORDS SUMMARY | ~2019-02-17 | XMS | Encounter Summary ---
Demographics + + + | Address | [address] | | | [place] [address] | + + + | Home Phone | | + + + | Preferred Language | Unknown | + + + | Marital Status | | + + + | Amish Affiliation | [id number] | + + + | Race | Unknown | + + + | Ethnic Group | Unknown | + + + Author + + + | Author | [facility] | | | and [place] | + + + | Organization | [facility] | | | [...] Team Providers + +------+ + | Care Obedience Trainer Name | Role | Phone | + +------+ + | Horacio Silvestre DO | PCP | | + +------+ + Reason for Visit + + + | Reason | Comments | + + + | Weakness | | + + + Auth/Cert +--------+--------+ + + + + | Status | Reason | Specialty | Diagnoses / | Referred By | Referred To | | | | | Procedures | Contact | Contact | +--------+--------+ + + + + | | | | Diagnoses | | | | | | | Acute renal | | | | | | | | | | | | | | insufficienc | | | | | | | y Pneumonia | | | | | | | of left | | | | | | | upper lobe | | | | | | | due to | | | | | | | infectious | | | | | | | organism | | | | | | | (HCC) | | | +--------+--------+ + + + + Encounter Details +--------+ + + + + | Date | Type | Department | Care Team | Description | +--------+ + + + + | 05/26/ | Hospital | [facility] | Macario Sibley | Acute renal | | 2019 - | Encounter | [facility] | DO [address] | insufficiency | | | | [address] [place] | [address] | (Primary Dx); | | 05/27/ | | [place], [place] | [place] [address] | Pneumonia of left | | 2019 | | [address] | [phone] | upper lobe due to | | | | [phone] | | infectious organism | | | | | Fernando Ibrahim MD | ([facility]) | | | | | [address] [place] | | | | | | [place] [address] | | | | | | [phone] | | | | | | | [...] + + + | Blood Pressure | 179/95 | 05/27/2018 12:02 PM | rt upper arm | | | | PST | | + + + + + | Pulse | 60 | 05/27/2018 11:59 AM | | | | | PST | | + + + + + | Temperature | 37.1 C (98.8 F) | 05/27/2018 11:59 AM | | | | | PST | | + + + + + | Respiratory Rate | 20 | 05/27/2018 11:59 AM | | | | | PST | | + + + + + | Oxygen Saturation | 95% | 05/27/2018 11:59 AM | | | | | PST | | + + + + + | Inhaled Oxygen | - | - | | | Concentration | | | | + + + + + | Weight | 99.8 kg (220 lb 0.3 | 05/27/2018 5:00 AM | | | | oz) | PST | | + + + + + | Height | 167.6 cm (5' 6") | 05/26/2018 7:22 PM | | | | | PST | | + + + + + | Body Mass Index | 35.51 | 05/26/2018 7:22 PM | | | | | PST [...] encounter Discharge Summaries Kasey Salinas NP - 05/27/2018 1:08 PM PSTFormatting of this note might be different fr om the original. MEDICAL HOSPITALIST DISCHARGE SUMMARY Pt. Name/Age/: Geraldo Mcfadden 77 y.o. 1940 Date of Admission: 05/26/2018 Date of Discharge: 05/27/2018 PCP: Horacio Silvestre Admitting Diagnosis: Weakness, Acute renal failure Discharge Diagnosis: Principal Problem (Resolved): Acute renal failure (ARF) Active Problems: Essential hypertension Acquired hypothyroidism Type 2 diabetes mellitus with diabetic polyneuropathy, with long-term current use of insu gely Panlobular emphysema Resolved Problems: Hypomagnesemia Additional discharge history/co-morbidities: Active Ambulatory Problems Diagnosis [...] (BMI) of 33.0 to 33.9 in adult 03/07/2017 Benign prostatic hyperplasia without lower urinary tract symptoms 03/07/2017 Acquired diverticulosis of colon 03/07/2017 Chronic nonseasonal allergic rhinitis due to pollen 03/07/2017 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 03/07/2017 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, left nursing home current use of opiate analgesic 06/27/2017 Current use of beta marly 06/30/2017 Panlobular emphysema 08/08/2017 Atherosclerosis of [place] coronary artery of [place] heart without angina pectoris 08/08 On potassium wasting diuretic therapy 08/08/2017 Primary osteoarthritis involving multiple joints 09/30/2017 Vitamin D deficiency disease 09/30/2017 Neck pain, chronic 12/15/2017 Chronic bilateral low back pain without sciatica 12/15/2017 History of bacterial pneumonia 03/16/2018 nursing home current use of non-steroidal anti-inflammatories (NSAID) 04/08/2018 Insomnia secondary to chronic pain 04/08/2018 Hx of transient ischemic attack (TIA) 04/10/2018 Syncope and collapse 05/19/2018 CAP (community acquired pneumonia) 05/26/2018 Resolved Ambulatory Problems Diagnosis Date Noted Community acquired pneumonia, unspecified laterality 08/15/2017 Generalized weakness 01/09/2018 Dehydration 01/09/2018 Chronic bilateral low back pain without sciatica 02/19/2018 Hypoxia 03/16/2018 Neutrophilic leukocytosis 03/17/2018 Past Medical History: Diagnosis Date Carpal tunnel syndrome, bilateral 05/31/2013 DDD (degenerative disc disease), cervical 05/22/2013 Diabetes mellitus GERD (gastroesophageal reflux disease) Gout Hiatal hernia Hypertension Melanoma Melanoma 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, left Neck pain, chronic 05/22/2013 Neuropathy Paresthesias - both hands 05/22/2013 Thyroid disease Discharge Medication Reconciliation: Discharge Medications Changed Medications Details pregabalin 300 MG capsule Take 300 mg by mouth every morning. What changed: Another medication with the same name was changed. Make sure you understand how and when to take each. aka: LYRICA pregabalin 300 MG capsule Take 1 capsule by mouth every evening. What changed: how much to take aka: LYRICA Unchanged Medications Details aspirin 325 mg tablet Take 325 mg by mouth every morning. atorvaSTATin 10 mg tablet Take 10 mg by mouth every morning. aka: LIPITOR cholecalciferol 2000 units Tabs Take 2,000 Units by mouth every morning. aka: VITAMIN D-3 clopidogrel 75 mg tablet Take 75 mg by mouth every morning. aka: PLAVIX colchicine 0.6 mg tablet Take 1 tablet by mouth every morning. cyanocobalamin 1000 MCG tablet Take 1 tablet by mouth every morning. aka: VITAMIN B-[address] capsule Take 60 mg by mouth every morning. aka: CYMBALTA fluticasone 50 mcg/nasal spray 2 sprays by Nasal route nightly as needed for Allergies. aka: FLONASE hydroCHLOROthiazide 25 mg tablet Take 1 tablet by mouth every morning. insulin glargine 100 units/mL injection (vial) Inject 35 Units under the skin nightly. aka: LANTUS levothyroxine 200 mcg tablet Take 1 tablet by mouth every morning (before breakfast). aka: SYNTHROID losartan 50 mg tablet Take 50 mg by mouth every morning. aka: COZAAR omeprazole 20 mg capsule Take 1 capsule by mouth every morning (before breakfast). aka: priLOSEC ondansetron 4 mg disintegrating tablet Take 1 tablet by mouth every 8 hours as needed for Nausea. aka: ZOFRAN ODT oxyCODONE 10 MG Tabs Take 30 mg by mouth every morning. tamsulosin 0.4 mg Caps Take 1 capsule by mouth nightly. aka: FLOMAX testosterone 2 mg/[address] 1 patch onto the skin nightly. aka: ANDRODERM traZODone 50 mg tablet Take 2 tablets by mouth nightly. aka: DESYREL urea 40 % Crea Apply to affected areas daily aka: CARMOL Discontinued Medications naproxen 500 mg tablet aka: NAPROSYN Clinical Resume: Geraldo Mcfadden is a 77 y.o. male with the above past medical history that presented to the Emergency Department on 05/26/2018 with Generalized weakness and "shaky legs." This has been a recurrent issue for the patient. He has seen neurology. When EMS arrived at the [facility] home his blood pressure was low at 75/50. The patient is on multiple medications for neuropathy and pain. He does not hydrate himself adequately throughout the day. In the Emergency Department chest x-ray was negative for acute process. White blood cell c ount was slightly elevated at 12.5. The patient was noted to be hypoxic on ABG. Renal func tion was elevated with BUNs of 22 and creatinine of 1.9. The patient was admitted to [facility] on IV azithromycin and ceftriaxone for suspected pneumo bebe. He was hydrated with IV fluids overnight. He was monitored on telemetry and remained sinus rhythm. His blood pressure improved and in fact he was hypertensive this morning as h e had not received his home antihypertensives. His symptoms resolved overnight. PT evaluat ed the patient and recommended home with assist. Blood sugars have remained stable. Renal function improved with IV hydration. Medication review showed multiple medications that may contribute to symptoms. He admitted that he is not drinking hardly any liquids throughout the day. He is on a diuretic. He was educated on adequate hydration throughout the day. R ecommended 6-8 eight ounce glasses of non-caffeinated beverages throughout the day preferabl y water. Recommend he avoid NSAIDs. Recommend he decrease his Lyrica to 300 mg twice a day due to his creatinine clearance. Plan to discharge home today with instructions to follow up with his PCP in 1-2 week. No ne w Rx. He is recommended to stop Naproxen as this will contribute to renal failure. He is to decrease his lyrica to 300 mg bid. Strongly recommend he continue to wean narcotic medicatio n as well as any other medications that are renally cleared. Recommend this be addressed wit h his PCP at follow up. The patient admitted to drinking little to no liquids during the day . Discussed the importance of at least 6-8 eight ounce glasses of non-caffeinated beverages (preferably water) throughout the day. Recommend follow up CT of the chest in 3 months to mo nitor mediastinal lymphadenopathy. Recommended follow up labs/imaging/tests: BMP at PCP follow up, CTA of the chest 3 months. Pending inpatient studies at time of discharge: None Disposition: Home Follow-Up Plans: Horacio Silvestre, DO [facility] [address] [facility] [address] In 2 weeks Hospital follow up You have a follow up appointment with Dr Silvestre on June 09 at 1:00p.m. Check i n at 12:45 p.m. Physical Examination: General: Awake, alert, upright in chair Cardiovascular: RRR, audible s1 and s2 Respiratory: Clear throughout bilaterally Abdomen: Obese, soft, non-tender to palpation Extremities: No edema Skin: intact Neurological: A&o x3, moving all extremities, answering questions appropriately Psychiatric: Appropriate affect, no hallucinations Significant tests and procedures during admission: Ct Head Wo Contrast Result Date: 05/13/2018 EXAMINATION: CT HEAD WO CONTRAST HISTORY: Intermittent episodes of altered mental status CO MPARISON STUDY: March 16, 2018 TECHNIQUE: 5 mm axial slices were acquired through the bra in without contrast. DOSE REPORT: CTDIvol: 40.4 mGy. DLP: 737 mGy-cm. Automated exposure co ntrol was utilized. FINDINGS: No evidence of an acute intracranial hemorrhage, mass lesion, or midline shift. The reinoso-white matter interface is intact. The ventricles are symmetric. S ulci are mildly prominent out of proportion to the ventricles. Mild cerebellar volume loss. Remote right cerebellar lacunar infarct, unchanged. Basilar cisterns are patent. White matte r is stable in appearance. No obvious vascular abnormality. Paranasal sinuses and mastoid ai r cells are clear. No fracture. Stable cerebellar tonsillar ectopia. IMPRESSION: 1. No acute intracranial process. 2. Mild volume loss. 3. Mild white matter dis ease. 4. Stable cerebellar tonsillar ectopia. 5. Stable remote right cerebellar lacunar infa rct. 6. The results of the study were discussed with MACARIO SIBLEY at 11:51 Dic tated by: Massimo Alba Mri Brain Wo Contrast Result Date: 05/21/2018 EXAMINATION: MRI BRAIN WO CONTRAST HISTORY: recurrent syncope r/o VBI,Hx CVA COMPARISON DAINEL DY: May 13, 2018, March 16, 2018 TECHNIQUE: Multiplanar multi sequence MRI of the bra in is performed without contrast. FINDINGS: Diffusion-weighted images show no evidence of re stricted diffusion. The reinoso-white matter interface is intact. No acute intracranial hemorrh age, mass lesion, or midline shift. Basilar cisterns are patent. Ventricles are symmetric. S ulci are prominent and out of proportion to the ventricles. Mild cerebellar volume loss. Fede or flow voids are present. Remote right cerebellar lacunar infarct. Mild confluent periventr icular white matter T2 hyperintensity. There are 3 left deep frontal white matter hyperinte nsities Minimal right cerebellar ectopia. Paranasal sinuses and mastoid air cells are clear. The pituitary gland is unremarkable. Corpus callosum is unremarkable. Brainstem is unremark able. IMPRESSION: 1. No acute intracranial abnormality 2. Remote right cerebellar lacunar infarct . 3. Mild white matter disease, likely related to chronic small vessel ischemia. 4. Global v olume loss. Dictated by: Massimo Alba 19 2:59 PM Xr Chest Ap Portable Result Date: 05/26/2018 EXAMINATION: XR CHEST AP PORTABLE HISTORY: WEAKNESS COMPARISON STUDY: CT thorax 03/16/2018. FINDINGS: Cardiomegaly redemonstrated. Atherosclerosis present which is best appreciated o n prior CT study. No lobar consolidation is seen. Vague curvilinear opacity present at the left lower lung zone. No distinct pleural effusion. No acute bone finding identified. Mo nitor wires project over the thorax. . IMPRESSION: 1. No definite acute finding identified. Minimal curvilinear opacity left lowe r lung zone which may relate to overlap of normal anatomy. Atelectasis or scar could result in similar appearance. Pneumonia is not strictly excluded. 2. Atherosclerosis coronary art eries. 3. Cardiomegaly. Dictated by: Troy Lawrence Electronically Signed by: Troy valencia 05/26/2018 4:[address] Angiogram Chest W Contrast Result Date: 05/27/2018 EXAMINATION: CT ANGIOGRAM CHEST W CONTRAST HISTORY: Rule out PE COMPARISON STUDY: CT thorax 03/16/2018. CT thorax 12/25/2016. TECHNIQUE: 5 mm axial slices were acquired through the l ungs during an arterial phase of contrast. Multiplanar MIP and surface reconstructions were performed. There was no post contrast reaction. DOSE REPORT: DLP is 619.33 mGy-cm. Auto mated exposure control was utilized. FINDINGS: The bolus of contrast is adequate. No pulmona ry artery filling defect. No lobar consolidation. Minimal ground-glass dependent lower lung bilateral base likely on basis of atelectasis.. Heart size mildly prominent. Atheroscleros is of the coronary arteries is present. Moderate volume of mediastinal lymph nodes are pres ent. lymph node adjacent to the aortic arch with short axis diameter 11 mm. The finding ap pears similar to the 03/16/2018 study. The finding is increased in volume compared to the study. Subcarinal lymph nodes present with the largest lymph node approximately 17 mm sh ort axis diameter. This finding appears unchanged from the 2018 study. Volume is increased compared to the 2017 study. The previously noted patchy parenchymal opacity in ground-glass noted on the 2018 study is no longer evident. Below the diaphragm the gallbladder is absent . No acute finding identified. Small hiatal hernia present. The visualized bony structures demonstrate mild multilevel endplate degenerative changes with spurring. No lytic or blast ic bone lesions are seen. IMPRESSION: 1. No pulmonary embolus. 2. No lobar consolidation or effusion. 3. Several mode rately prominent mediastinal lymph nodes are noted which appear similar to the 2018 study ho wever demonstrate increased volume compared to the 2017 study. Differential includes reacti ve lymph nodes however malignant adenopathy not strictly excluded. Three-month follow-up CT thorax recommended to re-evaluate the lymph nodes. 4. Cardiomegaly. 5. Atherosclerosis luz maria nary arteries. 6. Mild multilevel endplate degenerative changes thoracic spine. 7. Small hia adam hernia. Dictated by: Troy Lawrence Microbiology Results (Last 14 Days by Collected Date with Culture/Sensitivity) Procedure Component Value Units Date/Time Influenza A and B Ag, IA [[id number]] (Normal) Collected: 05/27/18 1115 Order Status: Completed Lab Status: Final result Updated: 05/27/18 1137 Specimen: Tissue from Nasopharynx Influenza A Ag, EIA Negative Influenza B Ag, EIA Negative Narrative: A negative test result may occur if the level of antigen in the sample is below the detect ion limit of the test and should be confirmed by culture. Culture, Blood [[id number]] (Normal) Collected: 05/26/18 1854 Order Status: Completed Lab Status: Preliminary result Updated: 05/27/18720 Specimen: Blood from Peripheral Blood Culture No growth: Monitored continually by instrument for 5 days Culture, Blood [[id number]] (Normal) Collected: 05/26/18 1820 Order Status: Completed Lab Status: Preliminary result Updated: 05/27/18720 Specimen: Blood from Peripheral Blood Culture No growth: Monitored continually by instrument for 5 days Time spent discharging this patient: 30 min Electronically Signed: CHANTEL Hillman 05/27/2018Electronically signed by Esteban Calvillo MD at 9 4:00 PM PSTdocumented in this encounter Discharge Instructions Instructions Kasey Salinas NP - 05/27/2018Increase your water intake. You should be dri nking 6-8 eight oz glasses of non-caffeinated beverages a day. Preferably water. AttachmentsThe following attachments cannot be sent through Care Everywhere.Renal Insuffici ency (Kazakh)Blood Sugar, How to Check Your (Kazakh)Hypertension, Established ([place]azakh)Hig h Blood Pressure (Hypertension), Discharge Instructions (Kazakh)documented in this encounte r Medications at Time of Discharge + + [...] + | colchicine 0.6 mg | Take 1 tablet by | 30 | 0 | 03/23/20 | | | tablet | mouth every morning. | tablet | | 18 | 9 | + + + +---------+ + + | cyanocobalamin | Take 1 tablet by | 90 | 3 | 03/20/20 | | | (VITAMIN B-12) 1000 | mouth every morning. | tablet | | 18 | 9 | | MCG tablet | [...] | | Take 1 tablet by | 30 | 0 | 04/28/19 | | | hydroCHLOROthiazide | mouth every [...] capsule by | 90 | 1 | 03/20/20 | | | (PRILOSEC) 20 mg | mouth every morning | capsule | | 18 | 9 | | capsule | (before [...] + | oxyCODONE 10 MG | Take 30 mg by mouth | | 0 | | | | TABS | every morning. | | | | 9 | + + + +---------+ + + | pregabalin | Take 300 mg by mouth | | 0 | | | | (LYRICA) 300 MG | every morning. | | | | 9 | | capsule | | | | | | + + + +---------+ + + | pregabalin | Take 1 capsule by | | 0 | 05/27/19 | | | (LYRICA) 300 MG | mouth every evening. | | | 19 | 9 | [...] encounter Progress Notes Cynthia Mendes, PharmD - 05/27/2018 1:58 PM PSTFormatting of this note might be differen t from the original. PHARMACY SERVICES: DISCHARGE MEDICATION TEACHING Geraldo Mcfadden is a 77 y.o. male admitted on 05/26/18 for acute renal failure and was d ischarged on 05/27/18. Discharge Medications Changed Medications Details pregabalin 300 MG capsule Take 300 mg by mouth every morning. What changed: Another medication with the same name was changed. Make sure you understand how and when to take each. aka: LYRICA pregabalin 300 MG capsule Take 1 capsule by mouth every evening. What changed: how much to take aka: LYRICA Unchanged Medications Details aspirin 325 mg tablet Take 325 mg by mouth every morning. atorvaSTATin 10 mg tablet Take 10 mg by mouth every morning. aka: LIPITOR cholecalciferol 2000 units Tabs Take 2,000 Units by mouth every morning. aka: VITAMIN D-3 clopidogrel 75 mg tablet Take 75 mg by mouth every morning. aka: PLAVIX colchicine 0.6 mg tablet Take 1 tablet by mouth every morning. cyanocobalamin 1000 MCG tablet Take 1 tablet by mouth every morning. aka: VITAMIN B-[address] capsule Take 60 mg by mouth every morning. aka: CYMBALTA fluticasone 50 mcg/nasal spray 2 sprays by Nasal route nightly as needed for Allergies. aka: FLONASE hydroCHLOROthiazide 25 mg tablet Take 1 tablet by mouth every morning. insulin glargine 100 units/mL injection (vial) Inject 35 Units under the skin nightly. aka: LANTUS levothyroxine 200 mcg tablet Take 1 tablet by mouth every morning (before breakfast). aka: SYNTHROID losartan 50 mg tablet Take 50 mg by mouth every morning. aka: COZAAR omeprazole 20 mg capsule Take 1 capsule by mouth every morning (before breakfast). aka: priLOSEC ondansetron 4 mg disintegrating tablet Take 1 tablet by mouth every 8 hours as needed for Nausea. aka: ZOFRAN ODT oxyCODONE 10 MG Tabs Take 30 mg by mouth every morning. tamsulosin 0.4 mg Caps Take 1 capsule by mouth nightly. aka: FLOMAX testosterone 2 mg/[address] 1 patch onto the skin nightly. aka: ANDRODERM traZODone 50 mg tablet Take 2 tablets by mouth nightly. aka: DESYREL urea 40 % Crea Apply to affected areas daily aka: CARMOL Discontinued Medications naproxen 500 mg tablet aka: ZHEN Counseled patient on the above medication changes. Instructed patient that it was importan t to only take 600mg of pregabalin a day. He could take 300mg twice a day or 600mg at night as he thinks taking it at night helps with the numbness in his feet. Explained that the mo st important thing was to not increase over 600mg/day. Counseled to stop taking the naproxe n as well. Patient verbalized understanding and was able to repeat all instructions back. Patient had no further questions at the time of discharge. Electronically signed by: Cynthia Mendes, Davey 05/27/2018 13:58 Cynthia Christensen PharmD - 05/27/2018 12:25 PM PSTMedication History Completed Medication history was completed using: -interview with patient (poor historian) -medication list faxed from [facility] Major discrepancies noted: Patient was able to tell me everything about certain medications (mostly the pain meds) but was not aware of his other medications. Patient is not complian t with the instructions that his physician prescribes. He seems to take the medications the way he wants to take them. Below is the list of major discrepancies of directions. Pregabalin - Order is 300mg po BID, patient states he takes 300mg in the morning and 60 0mg at night Oxycodone - Prescribed 10mg po TID, Patient stated he has taken 2 tabs BID but recentl y has been taking 3 tablets in the morning. However when he is in terrible pain by the time the morning rolls around. Lantus - Order was 35units qhs, patient states he sometimes takes this BID depending on his blood glucose, States he doesn't take the short acting insulin. Please see PREVENTIVE MAINTENANCE COORDINATOR med list for updated medication list. Electronically Signed by: Cynthia Mendes PharmD 05/27/2018 12:26 documented in th is encounter Plan of [...] [place] | | | | | | [address] | | | | | | [phone] | | | | | | | | +--------+---------+ + + + | 02/26/ | Office | Urology | Lillie Fowler | | | 2018 | Visit | | LILLIE Lopez [address] | | | | | | [address] | | | | | | [place], [place] | | | | | | [address] | | | | | | [phone] | | | | | | | | +--------+---------+ + + + | 03/16/ | Office | Neurology | Theresa, | | | 2018 | Visit | | SHONDA Mckinney [address] | | | [address] [place], | | | | | | [place] [address] | | | | | | [phone] | | | | | | | | +--------+---------+ + + + | 04/12/ | Office | Primary Care | Massimo Ramos | | | 2019 | Visit | | MD Fer [address] | | | | | | [place] | | | | | | [address] | | | | | | | | +--------+---------+ + + + | 10/03/ | Office | Neurology | Fabián Carias MD | | | 2020 | Visit | | [address] | | | | | | [place] | | | | | | [address] | | | | | | | | +--------+---------+ + + + + +------+--------+ + + | Name | Type | Priori | Associated Diagnoses | Date/Time | | | | ty | | | + +------+--------+ + + | ED INFORMATION | BRIT | Routin | | 05/26/2018 3:31 PM | | EXCHANGE | | e [...] | | | care | | | Artist'S Representative-C | | | | | | | [...] | | | care | | | Artist'S Representative-C | | | | | | | [...] | | | care | | | Artist'S Representative-C | | | | | | | [...] | | | care | | | Artist'S Representative-C | | | | | | | [...] | ECG - EXTERNAL SCAN | | 05/29/2018 | | Results for this | | | | 12:00 AM | | procedure are in the | | | | PST | | results section. | + +--------+ + + + | POC GLUCOSE | Routin | 05/27/2018 | | Results for this | | | e | 11:35 AM | | procedure are in the | | | | PST | | results section. | + +--------+ + + + | INFLUENZA A AND B | STAT | 05/27/2018 | | Results for this | | [place], [place] | | 11:15 AM | | procedure are in the | | | | PST | | results section. | + +--------+ + + + | CT ANGIOGRAM CHEST W | Routin | 05/27/2018 | | Results for this | | CONTRAST | e | 9:36 AM | | procedure are in the | | | | PST | | results section. | + +--------+ + + + | POC GLUCOSE | Routin | 05/27/2018 | | Results for this | | | e | 7:35 AM | | procedure are in the | | | | PST | | results section. | + +--------+ + + + | CBC WITH | Routin | 05/27/2018 | | Results for this | | DIFFERENTIAL | e | 5:25 AM | | procedure are in the | | | | PST | | results section. | + +--------+ + + + | BASIC METABOLIC | Routin | 05/27/2018 | | Results for this | | PANEL | e | 5:25 AM | | procedure are in the | | | | PST | | results section. | + +--------+ + + + | POC GLUCOSE | Routin | 05/26/2018 | | Results for this | | | e | 8:55 PM | | procedure are in the | | | | PST | | results section. | + +--------+ + + + | CULTURE, BLOOD | STAT | 05/26/2018 | | Results for this | | | | 6:54 PM | | procedure are in the | | | | PST | | results section. | + +--------+ + + + | CULTURE, BLOOD | STAT | 05/26/2018 | | Results for this | | | | 6:20 PM | | procedure are in the | | | | PST | | results section. | + +--------+ + + + | XR CHEST AP PORTABLE | STAT | 05/26/2018 | | Results for this | | | | 4:43 PM | | procedure are in the | | | | PST | | results section. | + +--------+ + + + | ECG 12 LEAD | STAT | 05/26/2018 | | Results for this | | | | 3:54 PM | | procedure are in the | | | | PST | | results section. | + +--------+ + + + | BLOOD GAS, ARTERIAL | STAT | 05/26/2018 | | Results for this | | | | 3:54 PM | | procedure are in the | | | | PST | | results section. | + +--------+ + + + | TSH, REFLEX FREE T4 | STAT | 05/26/2018 | | Results for this | | | | 3:45 PM | | procedure are in the | | | | PST | | results section. | + +--------+ + + + | TROPONIN I | STAT | 05/26/2018 | | Results for this | | | | 3:45 PM | | procedure are in the | | | | PST | | results section. | + +--------+ + + + | CBC WITH | STAT | 05/26/2018 | | Results for this | | DIFFERENTIAL | | 3:45 PM | | procedure are in the | | | | PST | | results section. | + +--------+ + + + | MAGNESIUM | STAT | 05/26/2018 | | Results for this | | | | 3:45 PM | | procedure are in the | | | | PST | | results section. | + +--------+ + + + | LACTIC ACID | STAT | 05/26/2018 | | Results for this | | | | 3:45 PM | | procedure are in the | | | | PST | | results section. | + +--------+ + + + | COMPREHENSIVE | STAT | 05/26/2018 | | Results for this | | METABOLIC PANEL | | 3:45 PM | | procedure are in the | | | | PST | | results section. | + +--------+ + + + | ED INFORMATION | Routin | 05/26/2018 | | | | EXCHANGE | e | 3:31 PM | | | | | | PST | | | + +--------+ + + + +---+--------+ | | | | | Proced | | | ure | | | Note - | | | Louise, | | | Lab In | | | | | | Hlseve | | | n - | | | 05/26/ | | | 2018 | | | 3:32 | | | PM PST | | | | | | [...] | | | 9 | | | 15:24? | | | MCFADDEN, | | | KENNET | | | H | | | J?MRN: | | | | | | [id number] | | | [id number] | | | riteri | | | [...] | | | criter | | | ia.E.D | | | . | | | Visit | | | Count | | | (12 | | | mo.)Fa | | | cility | | | | | | Visits | | | | | | [facility] | | | al 9 | | | Total | | | 9 | | | Note: | | | [...] | | | int | | | Feb | | | 19, | | | 2019 | | | [facility] [place] [facility] [place] | [place] | | | Emerge | | | ncy | | | Low | | | Blood | | | Pressu | | | re | | | Feb 6, | | | 2019 | | | [facility] | | | [place] | | | Emerge | | | ncy | | | | | | Weakne | | | ss | | | Transi | | | ent | | | cerebr | | | al | | | ischem | | | ic | | | attack | | | , | | | unspec | | | ified | | | Yaw | | | 7, | | | 2019 | | | [facility] [place] | | | [place] | | | [place] | | | Emerge | | | ncy | | | ? | | | Sinus | | | Infect | | | ion/Vo | | | miting | | | | | | Nausea | | | | | | Acute | | | maxill | | | yamilex | | | sinusi | | | tis, | | | unspec | | | ified | | | Dec | | | 10, | | | 2018 | | | [facility] [place] | | | [place] | | | [place] | | | Emerge | | | ncy | | | | | | Extrem | | | ity | | | Weakne | | | ss | | | Acute | | | pulmon | | | yamilex | | | edema | | | | | | Hypoth | | | yroidi | | | sm, | | | unspec | | | ified | | | | | | Weakne | | | ss | | | Hypote | | | nsion, | | | | | | unspec | | | ified | | | | | | Acute | | | respir | | | atory | | | failur | | | e with | | | | | | hypoxi | | | a Nov | | | 24, | | [...] | | | [place] | | | [employer] | | | al | | | [...] | | | sm | | | May | | | [...] | | | Care | | | Provid | | | [...] | | | //secu | | | re.louise | | | ecarep | | | shannan.co | | | m/jaspreet | | | ent/e5 | | | [id number] | | | -[id number] | | | [id number] | | | [id number] | | | [id number] | | | ee58 | | | The | | | above | | | inform | | | [...] | | | ? | | | 2019 | | | [...] | [email or web address] | | | | +---+--------+ + +------+ +---+ + | URINALYSIS WITH | STAT | 05/26/2018 | | Results for this | | MICROSCOPIC WITH | | 3:30 PM | | procedure are in the | | CULTURE IF INDICATED | | PST | | results section. | + +------+ +---+ + documented in this encounter Results ECG - EXTERNAL SCAN (05/29/2018 12:00 AM PST) + + + | Narrative | Performed At | + + + | Ordered by an | | | unspecified provider. | | + + + POC Glucose (05/27/2018 11:35 AM PST) + +---------+ + + + | Component | Value | Ref Range | Performed | Pathologist | | | | | At | Signature | + +---------+ + + + | Glucose, | 118 (H) | 70 - 110 mg/dL | [...] + + | [facility] | [address] | [place] [address] | [phone] | | [facility] | | | | + + + + + Influenza A and B ADAM Spring (05/27/2018 11:15 AM PST) + + + + + [...] + + | [facility] | [address] | [place] [address] | [phone] | | [facility] | | | | + + + + + CT Angiogram Chest W Contrast (05/27/2018 9:36 AM PST) + + | Specimen | + + | | + + + + + | Impressions | Performed At | + + + | IMPRESSION: 1. No pulmonary embolus. 2. No lobar consolidation or | [facility] | | effusion. 3. Several moderately prominent mediastinal lymph nodes are | | | noted which appear similar to the 2018 study however demonstrate | | | increased volume compared to the 2017 study. Differential includes | | | reactive lymph nodes however malignant adenopathy not strictly | | | excluded. Three-month follow-up CT thorax recommended to re-evaluate | | | the lymph nodes. 4. Cardiomegaly. 5. Atherosclerosis coronary | | | arteries. 6. Mild multilevel endplate degenerative changes thoracic | | | spine. 7. Small hiatal hernia. Dictated by: Troy Lawrence | | | | | + + + + + + | Narrative | Performed At | + + + | EXAMINATION: CT ANGIOGRAM CHEST W CONTRAST HISTORY: Rule out | [facility] | | PE COMPARISON STUDY: CT thorax 03/16/2018. CT thorax | | | 12/25/2016. TECHNIQUE: 5 mm axial slices were acquired through | | | the lungs during an arterial phase of contrast. Multiplanar MIP and | | | surface reconstructions were performed. There was no post contrast | | | reaction. DOSE REPORT: DLP is 619.33 mGy-cm. Automated | | | exposure control was utilized. FINDINGS: The bolus of contrast is | | | adequate. No pulmonary artery filling defect. No lobar | | | consolidation. Minimal ground-glass dependent lower lung bilateral | | | base likely on basis of atelectasis.. Heart size mildly prominent. | | | Atherosclerosis of the coronary arteries is present. Moderate | | | volume of mediastinal lymph nodes are present. lymph node adjacent | | | to the aortic arch with short axis diameter 11 mm. The finding | | | appears similar to the 03/16/2018 study. The finding is increased | | | in volume compared to the 2017 study. Subcarinal lymph nodes | | | present with the largest lymph node approximately 17 mm short axis | | | diameter. This finding appears unchanged from the 2018 study. | | | Volume is increased compared to the 2017 study. The previously | | | noted patchy parenchymal opacity in ground-glass noted on the 2018 | | | study is no longer evident. Below the diaphragm the gallbladder is | | | absent. No acute finding identified. Small hiatal hernia present. | | | The visualized bony structures demonstrate mild multilevel | | | endplate degenerative changes with spurring. No lytic or blastic | | | bone lesions are seen. | | + + + + + | Procedure Note | + + | Louise, Rad Results In - 05/27/2018 9:52 AM PST EXAMINATION:CT ANGIOGRAM CHEST W | | CONTRASTHISTORY:Rule out PECOMPARISON STUDY:CT thorax 03/16/2018. CT thorax | | 12/25/2016.TECHNIQUE:5 mm axial slices were acquired through the lungs during an | | arterial phase of contrast. Multiplanar MIP and surface reconstructions were performed. | | There was no post contrast reaction.DOSE REPORT:DLP is 619.33 mGy-cm. Automated | | exposure control was utilized.FINDINGS:The bolus of contrast is adequate.No pulmonary | | artery filling defect.No lobar consolidation. Minimal ground-glass dependent lower lung | | bilateral base likely on basis of atelectasis..Heart size mildly prominent. | | Atherosclerosis of the coronary arteries is present. Moderate volume of mediastinal | | lymph nodes are present. lymph node adjacent to the aortic arch with short axis | | diameter 11 mm. The finding appears similar to the 03/16/2018 study. The finding is | | increased in volume compared to the 2017 study.Subcarinal lymph nodes present with the | | largest lymph node approximately 17 mm short axis diameter. This finding appears | | unchanged from the 2018 study. Volume is increased compared to the 2017 study.The | | previously noted patchy parenchymal opacity in ground-glass noted on the 2018 study is | | no longer evident.Below the diaphragm the gallbladder is absent. No acute finding | | identified. Small hiatal hernia present.The visualized bony structures demonstrate mild | | multilevel endplate degenerative changes with spurring. No lytic or blastic bone | | lesions are seen.IMPRESSION: IMPRESSION:1. No pulmonary embolus.2. No lobar | | consolidation or effusion.3. Several moderately prominent mediastinal lymph nodes are | | noted which appear similar to the 2018 study however demonstrate increased volume | | compared to the 2017 study. Differential includes reactive lymph nodes however | | malignant adenopathy not strictly excluded. Three-month follow-up CT thorax recommended | | to re-evaluate the lymph nodes.4. Cardiomegaly.5. Atherosclerosis coronary arteries.6. | | Mild multilevel endplate degenerative changes thoracic spine.7. Small hiatal | | hernia.Dictated by: Troy Lawrence | | 9:48 AM | | | |The visualized bony structures demonstrate mild multilevel endplate degenerative changes wi th spurring. No lytic or blastic bone lesions are seen. | | | |IMPRESSION: | |IMPRESSION: | |1. No pulmonary embolus. | |2. No lobar consolidation or effusion. | |3. Several moderately prominent mediastinal lymph nodes are noted which appear similar to t 2018 study however demonstrate increased volume compared to the 2017 study. Differential includes reactive lymph nodes however malignant adenopathy not | |strictly excluded. Three-month follow-up CT thorax recommended to re-evaluate the lymph no dar. | |4. Cardiomegaly. | |5. Atherosclerosis coronary arteries. | |6. Mild multilevel endplate degenerative changes thoracic spine. | |7. Small hiatal hernia. | | | |Dictated by: Troy Lawrence | | | | | + + + +---------+ + + | Performing | Address | City/State/Zipcode | Phone Number | | Organization | | | | + +---------+ + + | [facility] | | | | + +---------+ + + POC Glucose (05/27/2018 7:35 AM PST) + +---------+ + + + | Component | Value | Ref Range | Performed | Pathologist | | | | | At | Signature | + +---------+ + + + | Glucose, | 115 (H) | 70 - 110 mg/dL | [...] + + | [facility] | [address] | [place] [address] | [phone] | | [facility] | | | | + + + + + CBC with Differential (05/27/2018 5:25 AM PST) + + + + + + | Component | Value | Ref Range | Performed | Pathologist | | | | | At | Signature | + + + + + + | WBC | 7.8 | 4.6 - 10.5 K/uL | [facility] | | | | [facility] | | | | [facility] | | + + + + + + | RBC | 4.07 (L) | 4.36 - 5.83 | [facility] | | | | | M/uL | [facility] | | | | | [facility] | | + + + + + + | Hemoglobin | 12.2 (L) | 13.1 - 17.4 | [facility] [...] + + + + | MCV | 92.1 | 82.0 - 96.0 fL | [facility] | | | | [facility] | | + + + + + + | MCH | 30.0 | 27.7 - 32.3 pg | [facility] | | [facility] | [facility] | | | | [facility] | | + + + + + + | MCHC | 32.5 | 32.0 - 36.9 | [facility] | [...] + + + + | Platelet | 114 (L) | 150 - 450 K/uL | [...] + + + + | % | 55.6 | 42.0 - 76.0 % | [facility] | | | Neutrophils | | | [facility] | | | | | | [facility] | | + + + + + + | % | 22.3 | 20.0 - 40.0 % | [facility] | | | Lymphocytes | | | [facility] | | | | | | [facility] | | + + + + + + | % Monocytes | 15.8 (H) | 3.0 - 13.0 % | [facility] | | | | [facility] | | | | | | [facility] | | + + + + + + | % | 4.6 | 0.0 - 7.0 % | [facility] | | | Eosinophils | | | [facility] | | | | | | [facility] | | + + + + + + | % Basophils | 0.8 | 0.0 - 2.0 % | [facility] | | | | | [facility] | | | | | | [facility] | | + + + + + + | % Immature | 0.9 (H) | 0.0 - 0.5 % | [facility] | | | Granulocyte | | | [facility] | | | [facility] | | | [facility] | | | | | | [facility]ORY | | + + + + + + | Absolute | 4.33 | 2.80 - 7.70 | [facility] | [...] + + + + | Absolute | 1.23 (H) | 0.00 - 0.80 | [facility] | | | Monocytes | | K/uL | [facility] | | | | | | [facility] | | + + + + + + | Absolute | 0.36 | 0.00 - 0.70 | [facility] | [...] + + | [facility] | [address] | [place] [address] | [phone] | | [facility] | | | | + + + + + Basic Metabolic Panel (05/27/2018 5:25 AM PST) + +---------+ + + + | Component | Value | Ref Range | Performed | Pathologist | | | | | At | Signature | + +---------+ + + + | Na | 146 (H) | 132 - 143 | [facility] | | | | | mmol/L | [facility] | | | | | | [facility] | | + +---------+ + + + | K | 3.5 | 3.3 - 4.9 | [facility] | | | | | mmol/L | [facility] | | | | | | [facility] | | + +---------+ + + + | Cl | 110 (H) | 95 - 108 mmol/L | [facility] | | | [facility] | | | | | | [facility] | | + +---------+ + + + | CO2 | 27 | 23 - 34 mmol/L | [facility] [...] +---------+ + + + | Glucose | 99 | 70 - 110 mg/dL | [facility] | [facility] | | | | | [facility] | | + +---------+ + + + | BUN | 18 | 5 - 26 mg/dL | [facility] | [facility] | | | | | | [facility] | | + +---------+ + + + | Creatinine | 1.23 | 0.70 - 1.40 | [facility] | | | | | mg/dL | [facility] | | | | | | [facility] | | + +---------+ + + + | eGFR if not | 57 (L) | >=60 | [facility] | | | | | mL/min/1.73m2 | [facility] | | [facility] | | | [...] + + | [facility] | [address] | [place] [address] | [phone] | | [facility] | | | | + + + + + POC Glucose (05/26/2018 8:55 PM PST) + +---------+ + + + | Component | Value | Ref Range | Performed | Pathologist | | | | | At | Signature | + +---------+ + + + | Glucose, | 178 (H) | 70 - 110 mg/dL | [...] + + | [facility] | [address] | [place] [address] | [phone] | | [facility] | | | | + + + + + Culture, Blood (05/26/2018 6:54 PM PST) + + + + + [...] + + | [facility] | [address] | [place] [address] | [phone] | | [facility] | | | | + + + + + Culture, Blood (05/26/2018 6:20 PM PST) + + + + + [...] + + | [facility] | [address] | [place] [address] | [phone] | | [facility] | | | | + + + + + XR Chest AP Portable (05/26/2018 4:43 PM PST) + + | Specimen | + + | | + + + + + | Impressions | Performed At | + + + | IMPRESSION: 1. No definite acute finding identified. Minimal | [facility] | | curvilinear opacity left lower lung zone which may relate to overlap | | | of normal anatomy. Atelectasis or scar could result in similar | | | appearance. Pneumonia is not strictly excluded. 2. Atherosclerosis | | | coronary arteries. 3. Cardiomegaly. Dictated by: Troy Lawrence | | | | | + + + + + + | Narrative | Performed At | + + + | EXAMINATION: XR CHEST AP PORTABLE HISTORY: WEAKNESS | [facility] | | COMPARISON STUDY: CT thorax 03/16/2018. FINDINGS: Cardiomegaly | | | redemonstrated. Atherosclerosis present which is best appreciated on | | | prior CT study. No lobar consolidation is seen. Vague curvilinear | | | opacity present at the left lower lung zone. No distinct pleural | | | effusion. No acute bone finding identified. Monitor wires | | | project over the thorax. . | | + + + + + | Procedure Note | + + | Louise, Rad Results In - 05/26/2018 4:50 PM PST EXAMINATION:XR CHEST AP | | PORTABLEHISTORY:WEAKNESSCOMPARISON STUDY:CT thorax 03/16/2018.FINDINGS:Cardiomegaly | | redemonstrated. Atherosclerosis present which is best appreciated on prior CT study. | | No lobar consolidation is seen. Vague curvilinear opacity present at the left lower | | lung zone. No distinct pleural effusion. No acute bone finding identified. Monitor | | wires project over the thorax. .IMPRESSION: IMPRESSION:1. No definite acute finding | | identified. Minimal curvilinear opacity left lower lung zone which may relate to | | overlap of normal anatomy. Atelectasis or scar could result in similar appearance. | | Pneumonia is not strictly excluded.2. Atherosclerosis coronary arteries.3. | | Cardiomegaly.Dictated by: Troy LawrenceElectronically Signed by: Troy Lawrence on | | 05/26/2018 4:46 PM | |identified. Monitor wires project over the thorax. . | | | |IMPRESSION: | |IMPRESSION: | |1. No definite acute finding identified. Minimal curvilinear opacity left lower lung zone which may relate to overlap of normal anatomy. Atelectasis or scar could result in similar appearance. Pneumonia is not strictly excluded. | |2. Atherosclerosis coronary arteries. | |3. Cardiomegaly. | | | | | |Dictated by: Troy Lawrence | | | | | + + + +---------+ + + | Performing | Address | City/State/Zipcode | Phone Number | | Organization | | | | + +---------+ + + | [facility] | | | | + +---------+ + + ECG 12 lead (05/26/2018 3:54 PM PST) + + | Specimen | + + | | + + + + + | Narrative | Performed At | + + + | Heart Rate: 67 bpm QRS Interval: 94 ms QT Interval: 420 ms QTC | [facility] | | Interval: 444 ms P Bison: 17 deg QRS Bison: -41 deg T Wave Bison: -5 | [facility] | | deg P-R Interval: 196 msec - BORDERLINE ECG - SINUS RHYTHM | | | [Remains] LEFT AXIS DEVIATION [Insig. Chg.] EARLY PRECORDIAL R/S | | | TRANSITION [Now Present] BORDERLINE T ABNORMALITIES, INFERIOR LEADS | | | [Insig. Chg.] NO SIGNIFICANT CHANGE [Now Absent] BORDERLINE | | | INTRAVENTRICULAR CONDUCTION DELAY | | + + + + +---------+ + + | Performing | Address | City/State/Zipcode | Phone Number | | Organization | | | | + +---------+ + + | [facility] | | | | + +---------+ + + Blood Gas, Arterial (05/26/2018 3:54 PM PST) + +--------+ + + + | Component | Value | Ref Range | Performed | Pathologist | | | | | At | Signature | + +--------+ + + + | pH Temp | 7.42 | 7.35 - 7.45 | [facility] | [...] + + + | pO2 Temp | 57 (L) | 69 - 116 mmHg | [facility] | | | Corrected, | | | [facility] | | | [facility] | | | [facility] | | | | | | [facility] | | + +--------+ + + + | pH, | 7.43 | 7.35 - 7.45 | [facility] | [...] +--------+ + + + | pO2, | 57 (L) | 69 - 116 mm Hg | [facility] | | | Arterial | | | [facility] | | | | [facility] | | | | | | [facility] | | + +--------+ + + + | HCO3, | 24.7 | 17.0 - 28.0 | [facility] | | | Arterial | | mmol/L | [facility] | | [facility] | | | | | | [facility] | | + +--------+ + + + | Base | 0.5 | -2.4 - 2.3 | [facility] | | | Excess, | | mmol/L | [facility] | | | [facility] | | [facility] | | | | | | [facility] | | + +--------+ + + + | TCO2, | 26 (H) | 21 - 25 mmol/L | [facility] | | | Arterial | | | [facility] | [facility] | | | | | | [facility] | | + +--------+ + + + | O2 | 90 (L) | 95 - 99 % | [facility] | | | Saturation, | | | [facility] | | | [facility] | [facility] | | | | | | [facility] | | + +--------+ + + + | FiO2 | 21.0 | % | [facility] | | | | | | [facility] | | | | | | [facility] | | + +--------+ + + + | PATIENT | 37.1 | | [facility] | | | TEMP [...] + + | [facility] | [address] | [place] [address] | [phone] | | [facility] | | | | + + + + + Magnesium (05/26/2018 3:45 PM PST) + +---------+ + + + [...] + + | [facility] | [address] | [place] [address] | [phone] | | [facility] | | | | + + + + + TSH, Reflex Free T4 (05/26/2018 3:45 PM PST) + +-------+ + + + | Component | Value | Ref Range | Performed | Pathologist | | | | | At | Signature | + +-------+ + + + | TSH | 3.07 | 0.36 - 3.74 | [facility] | [...] + + + + + | [facility] | [address] | [place] [address] | [phone] | | [facility] | | | | + + + + + Lactic Acid (05/26/2018 3:45 PM PST) + +-------+ + + + | Component | Value | Ref Range | Performed | Pathologist | | | | | At | Signature | + +-------+ + + + | Lactate | 1.9 | 0.4 - 2.1 | [facility] | [...] + + | [facility] | [address] | [place] [address] | [phone] | | [facility] | | | | + + + + + Troponin I (05/26/2018 3:45 PM PST) + +-------+ + + + [...] such as unstable angina or | [facility] | | non-Q wave myocardial infarction, cardiac troponin I levels provide | [facility] | | useful prognostic information and aid in early detection of such | [facility] | | patients with an increased risk of . The Risk Stratification | | | cutpoint for the Troponin I method is 0.1 ng/mL. The diagnostic | | | cutoff point for the diagnosis of TN is 0.8 ng/mL for the Troponin I | | | method. | | + + + + + + + + | Performing | Address | City/State/Zipcode | Phone Number | | Organization | | | | + + + + + | [facility] | [address] | [place] [address] | [phone] | | [facility] | | | | + + + + + Comprehensive Metabolic Panel (05/26/2018 3:45 PM PST) + + + + + [...] + + + + | Cl | 104 [...] + + + | Anion Gap | 13 | 7 - 16 mmol/L | [facility] [...] + + + + | BUN | 22 | 5 - 26 mg/dL | [facility] | | | | | | [facility] | | | | | | [facility] | | + + + + + + | Creatinine | 1.93 (H) | 0.70 - 1.40 | [facility] | | | | | mg/dL | [facility] | [facility] | | | | | | [facility] | | + + + + + + | eGFR if not | 34 (L)Comment: | >=60 | [facility] | | | | GLOMERULAR FILTRATION | mL/min/1.73m2 | [facility] | | | [facility] | RATE,ESTIMATED | | [facility] | | | | mL/min/1.13b3Oouw than | | LAB[facility] | | | [...] + + + + | Calcium | 8.8 | 8.3 - 10.0 | [facility] | | | | | mg/dL | [facility] | | | | | | [facility] | | + + + + + + | Albumin | 4.0 | 3.0 - 4.5 g/dL | [facility] [...] + + + + | AST | 51 (H) | 0 - 38 U/L | [facility] | | | | | | [facility] | | | | | | [facility] | | + + + + + + | ALT | 57 | 16 - 63 U/L | [facility] | | | | [facility] | | | | | | [facility] | | + + + + + + | Alkaline | 66 | 46 - 116 U/L | [facility] [...] + + + + | Albumin/Lizbeth | 1.2 | 0.8 - 2.0 | [facility] | | | bulin Ratio | | | [facility] | | | | | | [facility] | | + + + + + + | BUN/Creatin | 11.4 | 7.0 - 24.0 | [facility] | [...] + + | [facility] | [address] | [place] [address] | [phone] | | [facility] | | | | + + + + + CBC with Differential (05/26/2018 3:45 PM PST) + + + + + + | Component | Value | Ref Range | Performed | Pathologist | | | | | At | Signature | + + + + + + | WBC | 12.5 (H) | 4.6 - 10.5 K/uL | [...] + + + + | Hemoglobin | 13.8 | 13.1 - 17.4 | [facility] | | | | | g/dL | [facility] | | | | | | [facility] | | + + + + + + | Hematocrit | 43.2 | 39.0 - 51.9 % | [facility] | | | | | | [facility] | | | | | | [facility] | | + + + + + + | MCV | 93.3 | 82.0 - 96.0 fL | [facility] [...] + + + + | MCHC | 31.9 (L) | 32.0 - 36.9 | [facility] | | | | | g/dL | [facility] | | | | | | [facility] | | + + + + + + | RDW-CV | 16.0 | 0.0 - 17.0 % | [facility] | | | | | | [facility] | | | | | | [facility] | | + + + + + + | Platelet | 142 (L) | 150 - 450 K/uL | [facility] | | | Count | | | [facility] | [facility] | | | | | | [facility]ORY | | + + + + + + | MPV | 13.1 (H) | 9.4 - 12.4 fL | [facility] | | | | | | [facility] | | | | | | [facility] | | + + + + + + | % | 80.3 (H) | 42.0 - 76.0 % | [facility] | | | Neutrophils | | | [facility] | | | | | [facility] | | + + + + + + | % | 8.2 (L) | 20.0 - 40.0 % | [place] | | | Lymphocytes | | | [facility] | | | | | | LABORATORY | | + + + + + + | % Monocytes | 9.6 | 3.0 - 13.0 % | [place] | | | | | | [facility] | | | | | | LABORATORY | | + + + + + + | % | 0.5 | 0.0 - 7.0 % | [place] [...] + + + | % Immature | 1.0 (H) | 0.0 - 0.5 % | [place] | | | Granulocyte | | | [facility] | | | | | | LABORATORY | | + + + + + + | Absolute | 10.01 (H) | 2.80 - 7.70 | [place] | | | Neutrophils | | K/uL | [facility] | | | | | | LABORATORY | | + + + + + + | Absolute | 1.02 (L) | 1.20 - 3.30 | [place] | | | Lymphocytes | | K/uL | [facility] | | | | | | LABORATORY | | + + + + + + | Absolute | 1.20 (H) | 0.00 - 0.80 | [place] | | | Monocytes | | K/uL | [facility] | | | | | | LABORATORY | | + + + + + + | Absolute | 0.06 | 0.00 - 0.70 | [place] | [...] + + + + | Absolute | 0.13 | 0.00 - 0.15 | [place] | [...] + + | [facility] | [address] | [place] [address] | [phone] | | [facility] | | | | + + + + + Urinalysis with Microscopic with Culture if Indicated (05/26/2018 3:30 PM PST) + + + + + [...] - 1.030 | [place] | | | [place] | | | [facility] | | | [...] + + + | Glucose, | 1000 mg/dL (A) | Normal | [place] | [...] + + + + | SQUAMOUS | Trace (A) | None Seen /LPF | [place] [...] | Specimen | + + | Urine | + + + + + + + | Performing | Address | City/State/Zipcode | Phone Number | | Organization | | | | + + + + + | [facility] | [address] | [place] [address] | [phone] | | [facility] | | | | + + + + + documented in this encounter Visit Diagnoses + + | Diagnosis | + + | ARF (acute renal failure) (HCC) - Primary Acute kidney failure, unspecified | + + | Acute renal insufficiency Unspecified disorder of kidney and ureter | + + | Pneumonia of left upper lobe due to infectious organism (HCC) | + + | Hypomagnesemia Disorders of magnesium metabolism | + + | Essential hypertension Unspecified essential hypertension | + + | Acquired hypothyroidism Unspecified hypothyroidism | + + | Type 2 diabetes mellitus with complication, with long-term current use of insulin | | (HCC) | + + | Panlobular emphysema [...] | | | C (101.5 F), Starting Tue | | | 05/26/18 at 1928 | | + +---+ | | | + +---+ + +-------+ +--------+---+---+ | aspirin EC tablet 325 mg 325 | Given | 05/27/19 | 325 mg | | | | mg, Oral, DAILY, First dose on | | 19 1:35 | | | | | 05/27/18 at 1315 | | PM PST | | | | + +-------+ +--------+---+---+ +---+---+ | | | +---+---+ + +-------+ +-------+---+---+ | atorvaSTATin (LIPITOR) tablet | Given | 05/27/19 | 10 mg | | | | 10 mg 10 mg, Oral, EVERY | | 19 9:18 | | | | | MORNING, First dose on Wed | | AM PST | | | | | 05/27/18 at 0900 | | | | | | + +-------+ +-------+---+---+ +---+---+ | | | +---+---+ + +-------+ +--------+---+---+ | azithromycin (ZITHROMAX) tablet | Given | 05/26/19 | 500 mg | | | | 500 mg 500 mg, Oral, ONCE, Tu | | 19 6:32 | | | | | 05/26/18 at 1830, For 1 dose, | | PM PST | | | | | Indications: Pneumonia | | | | | | + +-------+ +--------+---+---+ +---+---+ | | | +---+---+ + +---------+ +-----+-------+---+ | cefTRIAXone (ROCEPHIN) 1 g in | New Bag | 05/26/19 | 1 g | 100 | | | sodium chloride 0.9% 50 mL IVPB | | 19 6:37 | | mL/hr | | | 1 g, Intravenous, Administer over | | PM PST | | | | | 30 Minutes, ONCE, 05/26/18 at | | | | | | | 1830, For 1 dose, Activate | | | | | | | system and mix before use., | | | | | | | Indications: Pneumonia | | | | | | + +---------+ +-----+-------+---+ +---+---+ | | | +---+---+ + +-------+ +-------+---+---+ | clopidogrel (PLAVIX) tablet 75 | Given | 05/27/19 | 75 mg | | | | mg 75 mg, Oral, DAILY, First | | 19 9:18 | | | | | dose on Fri05/27/18 at 0900 | | AM PST | | | | + +-------+ +-------+---+---+ +---+---+ | | | +---+---+ + +-------+ +-------+---+---+ | DULoxetine (CYMBALTA) DR | Given | 05/27/19 | 60 mg | | | | capsule 60 mg 60 mg, Oral, EVERY | | 19 1:35 | | | | | MORNING, First dose on Fri | | PM PST | | | | | 05/27/18 at 1315, Do not open | | | | | | | capsule., | | | | | | + +-------+ +-------+---+---+ +---+---+ | | | +---+---+ + +-------+ +--------+---+ + | enoxaparin (LOVENOX) 100 mg/mL | Given | 05/27/19 | 100 mg | | Abdomen- | | injection 100 mg 100 mg (rounded | | 19 9:18 | | | LLQ | | from 94.3 mg = 1 mg/kg | | AM PST | | | | | 94.3 kg), Subcutaneous, EVERY 12 | | | | | | | HOURS (2 times per day), First | | | | | | | dose on Fri05/26/18 at 1930 | | | | | | + +-------+ +--------+---+ + +-------+ +--------+---+ + | Given | 05/26/19 | 100 mg | | Abdomen- | | | 19 9:11 | | | RLQ | | | PM PST | | | | +-------+ +--------+---+ + +---+---+ | | | +---+---+ + +-------+ +-------+---+---+ | hydrALAZINE (APRESOLINE) | Given | 05/27/19 | 10 mg | | | | injection 10 mg 10 mg, | | 19 1:36 | | | | | Intravenous, ONCE, Fri05/27/18 at | | PM PST | | | | | 1315, For 1 dose | | | | | | + +-------+ +-------+---+---+ +---+---+ | | | +---+---+ + +-------+ +-------+---+---+ | hydroCHLOROthiazide tablet 25 | Given | 05/27/19 | 25 mg | | | | mg 25 mg, Oral, EVERY MORNING, | | 19 1:35 | | | | | First dose on Fri05/27/18 at 1315 | | PM PST | | | | + +-------+ +-------+---+---+ +---+---+ | | | +---+---+ + +-------+ + +---+ + | insulin glargine (LANTUS) | Given | 05/26/19 | 15 Units | | Abdomen- | | injection (vial) 15 Units 15 | | 19 9:12 | | | LLQ | | Units, Subcutaneous, NIGHTLY, | | PM PST | | | | | First dose on Fri05/26/18 at | | | | | | | 2115, For subcutaneous use only. | | | | | | | Basal (long acting) insulin. Only | | | | | | | for use with U-100 insulin | | | | | | | syringe., | | | | | | + +-------+ + +---+ + + +---+ | | | + +---+ | insulin lispro (humaLOG) | | | injection (vial) 0-6 Units 0-6 | | | Units, Subcutaneous, 4 TIMES | | | DAILY WITH MEALS & NIGHTLY, First | | | dose on Fri05/27/18 at 1200, | | | CORRECTION SCALE: Blood Glucose | | | (BG) < 150: None BG | | | 150-200: DAY: 1 units. NIGHT: 0 | | | units BG 201-250: DAY: 2 | | | units. NIGHT: 1 units BG | | | 251-300: DAY: 3 units. NIGHT: 2 | | | units BG 301-350: DAY: 4 units. | | | NIGHT: 3 units BG 351-400: | | | DAY: 5 units. NIGHT: 4 units | | | BG > 400 : DAY: 6 units. | | | NIGHT: 5 units | | | AND CALL PROVIDER Use DAY | | | DOSE for doses scheduled: | | | AC, NPO, Daytime 2243-4084 Use | | | NIGHT DOSE for doses scheduled: | | | HS, 3AM, Nighttime 3066-6053 | | | Only for use with U-100 insulin | | | syringe., | | + +---+ | | | + +---+ + +-------+ +--------+---+---+ | iopamidol (ISOVUE-370) 370 | Given | 05/27/19 | 75 mLs | | | | mg/mL injection 75 mL 75 mL, | | 19 9:36 | | | | | Intravenous, ONCE PRN, Other, | | AM PST | | | | | Starting 05/27/18 at 0936, For | | | | | | | 1 dose, Cat Scanner | | | | | | + +-------+ +--------+---+---+ +---+---+ | | | +---+---+ + +---------+ +--------+-------+---+ | lactated ringers (LR) bolus | New Bag | 05/26/19 | 1,000 | 1000 | | | 1,000 mL 1,000 mL, Intravenous, | | 19 4:24 | mLs | mL/hr | | | Administer over 1 Hours, ONCE, | | PM PST | | | | | 05/26/18 at 1645, For 1 dose | | | | | | + +---------+ +--------+-------+---+ +---+---+ | | | +---+---+ + +---------+ +--------+-------+---+ | lactated ringers (LR) bolus | New Bag | 05/26/19 | 1,000 | 1000 | | | 1,000 mL 1,000 mL, Intravenous, | | 19 5:56 | mLs | mL/hr | | | Administer over 1 Hours, ONCE, | | PM PST | | | | | 05/26/18 at 1800, For 1 dose | | | | | | + +---------+ +--------+-------+---+ +---+---+ | | | +---+---+ + +-------+ +---------+---+---+ | levothyroxine (SYNTHROID) | Given | 05/27/19 | 200 mcg | | | | tablet 200 mcg 200 mcg, Oral, | | 19 6:14 | | | | | DAILY BEFORE BREAKFAST, First | | AM PST | | | | | dose on Fri05/27/18 at 0600, Give | | | | | | | before breakfast., | | | | | | + +-------+ +---------+---+---+ +---+---+ | | | +---+---+ + +-------+ +-------+---+---+ | losartan (COZAAR) tablet 50 mg | Given | 05/27/19 | 50 mg | | | | 50 mg, Oral, EVERY MORNING, | | 19 1:35 | | | | | First dose on Fri05/27/18 at 1315 | | PM PST | | | | + +-------+ +-------+---+---+ +---+---+ | | | +---+---+ + +---------+ +-----+ +---+ | magnesium sulfate 2 g/50 mL | New Bag | 05/26/19 | 2 g | 50 mL/hr | | | IVPB 2 g 2 g, Intravenous, | | 19 5:56 | | | | | Administer over 60 Minutes, ONCE, | | PM PST | | | | | 05/26/18 at 1800, For 1 dose, | | | | | | | Maximum recommended infusion | | | | | | | rate = 1 gram/hour., | | | | | | + +---------+ +-----+ +---+ + +---+ | | | + +---+ | ondansetron (ZOFRAN) injection | | | 4 mg 4 mg, Intravenous, EVERY 6 | | | HOURS PRN, Nausea, Vomiting, | | | Starting 05/26/18 at 1928, | | | First line agent, | | + +---+ | | | + +---+ + +-------+ +-------+---+---+ | pantoprazole (PROTONIX) DR | Given | 05/27/19 | 40 mg | | | | tablet 40 mg 40 mg, Oral, DAILY | | 19 1:35 | | | | | BEFORE BREAKFAST, First dose on | | PM PST | | | | | 05/27/18 at 1315, Indication: | | | | | | | GERD | | | | | | + +-------+ +-------+---+---+ + +---+ | | | + +---+ | pharmacy consult - other | | | medications/reasons PHARMACY | | | CONSULT, Starting Fri05/26/18 at | | | 1915, Pharmacy to dose which | | | medication? Please help dose | | | theraputic lovenox and if renal | | | function is to low please help | | | start heparin drip per PE protcol | | + +---+ | | | + +---+ + +-------+ +--------+---+---+ | pregabalin (LYRICA) capsule 300 | Given | 05/27/19 | 300 mg | | | | mg 300 mg, Oral, EVERY MORNING, | | 19 1:35 | | | | | First dose on Fri05/27/18 at | | PM PST | | | | | 1315 | | | | | | + +-------+ +--------+---+---+ +---+---+ | | | +---+---+ + +---------+ +--------+ +---+ | sodium chloride 0.9% (NS) | New Bag | 05/26/19 | 1,000 | 75 mL/hr | | | infusion at 75 mL/hr, | | 19 8:00 | mLs | | | | Intravenous, CONTINUOUS, Starting | | PM PST | | | | | 05/26/18 at 1945, For 12 | | | | | | | hours | | | | | | + +---------+ +--------+ +---+ +---+---+ | | | +---+---+ documented in this encounter
--- OUTSIDE RECORDS SUMMARY | ~2019-02-17 | XMS | Encounter Summary ---
Demographics + + + | Address | [address] | | | [place] [address] | + + + | Home Phone | | + + + | Preferred Language | Unknown | + + + | Marital Status | | + + + | Gnosticism Affiliation | 1025 | + + + | Race | Unknown | + + + | Ethnic Group | Unknown | + + + Author + + + | Author | [facility] | | | and [place] | + + + | Organization | [facility] | | | [...] Team Providers + +------+ + | Care Meter Supervisor Name | Role | Phone | + +------+ + | Horacio Silvestre DO | PCP | | + +------+ + Reason for Visit +--------+ + | Reason | Comments | +--------+ + | Other | Nurse only visit | +--------+ + Encounter Details +--------+ + + + + | Date | Type | Department | Care Team | Description | +--------+ + + + + | 12/17/ | Clinical | [facility] | Renato Marks, | | | 2019 | Support | [facility] | RN PALLIATIVE [address] | | | | | [facility]ICAL [facility] [address] | [place] [address] | | | | | [address] [facility], | [phone] | | | | | [place] [address] | | | | | | [phone] | | | +--------+ + + + [...] (5 years old or older) | point itz | | + + + + | [...] as of this encounter Progress Notes Massimo Coelho RN - 12/17/2018 11:30 AM PDTBilateral ear lavage per verbal order of Sarah Tejada. Massimo Coelho RN documented in this encounter Plan of Treatment [...] [place] | | | | | | [address] | | | | | | [phone] | | | | | | | | +--------+---------+ + + + | 02/26/ | Office | Urology | Lillie Fowler | | | 2019 | Visit | | LILLIE Lopez [address] | | | | | | [address] | | | | | | [place] | | | | | | [address] | | | | | | [phone] | | | | | | | | +--------+---------+ + + + | 03/16/ | Office | Neurology | Theresa, | | | 2018 | Visit | | [address] | | | | | | [facility] [address] [place], | | | | | | [place] [address] | | | | | | [phone] | | | | | | | | +--------+---------+ + + + | 04/12/ | Office | Primary Care | Massimo Ramos | | | 2019 | Visit | | MD Fer [address] | | | | | | [address] [place] | | | | | | [address] | | | | | | | | +--------+---------+ + + + | 10/03/ | Office | Neurology | Fabián Carias MD | | | 2019 | Visit | | [address] | | | | | | [place] | | | | | | [address] | | | | | | | [...] | | | care | | | Wax Pattern Repairer-C | | | | | | [...] | | | care | | | Wax Pattern Repairer-C | | | | | | [...] | | | care | | | Wax Pattern Repairer-C | | | | | | [...] | | | care | | | Wax Pattern Repairer-C | | | | | | [...]
--- OUTSIDE RECORDS SUMMARY | ~2019-02-17 | XMS | Encounter Summary ---
Demographics + + + | Address | [address] | | | [place] [address] | + + + | Home Phone [...] Team Providers + +------+ + | Care Sewage Plant Operator Name | Role | Phone | + +------+ + | Ryan Gutiérrez MD | PCP | | + +------+ + Encounter Details +--------+ + + + + | Date | Type | Department | Care Team | Description | +--------+ + + + + | 04/03/ | [facility] | Scott De Oliveira | | | 2016 | Encounter | [facility] | DO [address] | | | | | SURGERY [address] | [address] | | | | | [address] [place], | [facility], [place] | | | | | [place] [address] | [address] | | | | | [phone] | [phone] | | | | | | | [...] [place] | | | | | | [address] | | | | | | [phone] | | | | | | | | +--------+---------+ + + + | 02/26/ | Office | Urology | Lillie Fowler | | | 2018 | Visit | | LILLIE Lopez [address] | | | | | | [address] | | | | | | [place] | | | | | | [address] | | | | | | [phone] | | | | | | | | +--------+---------+ + + + | 03/16/ | Office | Neurology | Theresa, | | | 2018 | Visit | | [address] | | | | | | [address] [place], | | | | | | [place] [address] | | | | | | [phone] | | | | | | | | +--------+---------+ + + + | 04/12/ | Office | Primary Care | Massimo Ramos | | | 2019 | Visit | | MD Fer [address] | | | | | | [address] [place] | | | | | | [address] | | | | | | | | +--------+---------+ + + + | 10/03/ | Office | Neurology | Fabián Carias MD | | | 2019 | Visit | | [address] | | | | | | [place] | | | | | | [address] | | | | | | | [...] | | | care | | | Sanding Supervisor-C | | | | | | [...] | | | care | | | Sanding Supervisor-C | | | | | | [...] | | | care | | | Sanding Supervisor-C | | | | | | [...] | | | care | | | Sanding Supervisor-C | | | | | | | linical | + +--------+ +---+-----+ + + + | Note: Pt will | | check CBG's daily x1 | | Pt will take Lantis as | | prescribed | + + documented as of this encounter Visit Diagnoses Not on filedocumented in this encounter"
--- OUTSIDE RECORDS SUMMARY | ~2019-02-17 | XMS | Encounter Summary ---
Demographics + + + | Address | [address] | | | [place] [address] | + + + | Home Phone | | + + + | Preferred Language | Unknown | + + + | Marital Status | | + + + | Uatsdin Affiliation | 1025 | + + + [...] Team Providers + +------+ + | Care Vp Integrity Name | Role | Phone | + [...] [facility] | DO [address] [place] | pansinusitis | | | | MEDICAL [facility] [address] | [facility], [place] | (Primary Dx) | | | | [address] [place], | [address] | | | | | [place] [address] | [phone] | | | | | [phone] | | | +--------+---------+ + + + [...] the sinuses. It is usuallycaused by a suasn l infection after a common cold. Your [...] if you feel better. Date Last Reviewed: 01/06/201619995992-8603 [employer]. [address] [place] [address], [place] [address]. All righ ts reserved. This information is [...] [place] | | | | | | [address] | | | | | | [phone] | | | | | | | | +--------+---------+ + + + | 02/26/ | Office | Urology | Lillie Fowler | | | 2018 | Visit | | LILLIE Lopez [address] | | | | | | [address] | | | | | | [place] | | | | | | [address] | | | | | | [phone] | | | | | | | | +--------+---------+ + + + | 03/16/ | Office | Neurology | Theresa, | | | 2018 | Visit | | [address] | | | | | | [address] [place], | | | | | | [place] [address] | | | | | | [phone] | | | | | | | | +--------+---------+ + + + | 04/12/ | Office | Primary Care | Massimo Ramos | | | 2019 | Visit | | MD Fer [address] | | | | | | [place] | | | | | | [address] | | | | | | | | +--------+---------+ + + + | 10/03/ | Office | Neurology | Fabián Carias MD | | | 2019 | Visit | | [address] | | | | | | [place] | | | | | | [address] | | | | | | | [...] yle | n of | | | Chraline M, | | dehydration | | complex | | | Case | | | | care | | | Surgical Instrument Repair Specialist-C | | | | | | [...] | | | care | | | Surgical Instrument Repair Specialist-C | | | | | | [...] | | | care | | | Surgical Instrument Repair Specialist-C | | | | | | [...] | | | care | | | Surgical Instrument Repair Specialist-C | | | | | | [...]
--- OUTSIDE RECORDS SUMMARY | ~2019-02-17 | XMS | Encounter Summary ---
Demographics + + + | Address | [address] | | | [place] [address] | + + + | Home Phone [...] Providers + +------+ + | Care Health Care Legal Assistant Name | Role | Phone | + +------+ + | Ryan Gutiérrez MD | PCP | | + +------+ + Encounter Details +--------+ + + + + | Date | Type | Department | Care Team | Description | +--------+ + + + + | 09/19/ | [facility] | Scott De Oliveira | | | 2016 | Encounter | [facility] | DO [address] | | | | | OSTOMY [address] | [address] | | | | | [address] [place], | [facility], [place] | | | | | [place] [address] | [address] | | | | | [phone] | | | | | | | [...] [place] | | | | | | [address] | | | | | | [phone] | | | | | | | | +--------+---------+ + + + | 02/26/ | Office | Urology | Lillie Fowler | | | 2018 | Visit | | LILLIE Lopez [address] | | | | | | [address] | | | | | | [place] | | | | | | [address] | | | | | | [phone] | | | | | | | | +--------+---------+ + + + | 03/16/ | Office | Neurology | Theresa, | | | 2018 | Visit | | [address] | | | | | | [address] [place], | | | | | | [place] [address] | | | | | | [phone] | | | | | | | | +--------+---------+ + + + | 04/12/ | Office | Primary Care | Massimo Ramos | | | 2019 | Visit | | MD Fer [address] | | | | | | [place] | | | | | | [address] | | | | | | | | +--------+---------+ + + + | 10/03/ | Office | Neurology | Fabián Carisa MD | | | 2019 | Visit | | [address] | | | | | | [place] | | | | | | [address] | | | | | | | [...] | | | care | | | Corporate Compliance Director-C | | | | | | [...] | | | care | | | Corporate Compliance Director-C | | | | | | [...] | | | care | | | Corporate Compliance Director-C | | | | | | [...] | | | care | | | Corporate Compliance Director-C | | | | | | | linical | + +--------+ +---+-----+ + + + | Note: Pt will | | check CBG's daily x1 | | Pt will take Lantis as | | prescribed | + + documented as of this encounter Visit Diagnoses Not on filedocumented in this encounter"
--- OUTSIDE RECORDS SUMMARY | ~2019-02-17 | XMS | Encounter Summary ---
Demographics + + + | Address | [address] | | | [place] [address] | + + + | Home Phone | | + + + | Preferred Language | Unknown | + + + | Marital Status | | + + + | Episcopal Affiliation | 1025 | + + + | Race | Unknown | + + + | Ethnic Group | Unknown | + + + Author + + + | Author | [facility] | | | and [place] | + + + | Organization | [facility] | | [...] Team Providers + +------+ + | Care Railroad Carman Name | Role | Phone | + +------+ + | Horacio Silvestre DO | PCP | | + +------+ + Encounter Details +--------+ + + + + | Date | Type | Department | Care Team | Description | +--------+ + + + + | 12/28/ | Hospital | [facility] | Horacio Silvestre, | | | 2017 | Encounter | [facility] | DO [address] [place] | | | | | MEDICAL CL[facility] [address] | [facility], [place] | | | | | [address] [place], | [address] | | | | | [place] [address] | [phone] | | | | | [phone] | | | +--------+ + + + [...] + + +---------+ + + | Insulin Glargine | Inject 35 Units | | 0 | | | | (LANTUS SC) | under the skin | | | | 8 | | | nightly. | | | | | [...] tablet by | 56 | 0 | 04/04/20 | | | (ROXICODONE) 5 mg | mouth Twice daily | tablet | | 17 | 8 | | tablet | as needed for Pain. | | | | | + + [...] [place] | | | | | | [address] | | | | | | [phone] | | | | | | | | +--------+---------+ + + + | 02/26/ | Office | Urology | Lillie Fowler | | | 2018 | Visit | | [address]ILLIE [address] | | | | | | [address] | | | | | | [place] | | | | | | [address] | | | | | | [phone] | | | | | | | | +--------+---------+ + + + | 03/16/ | Office | Neurology | Theresa, | | | 2018 | Visit | | [address] | | | | | | [address] [place], | | | | | | [place] [address] | | | | | | [phone] | | | | | | | | +--------+---------+ + + + | 04/12/ | Office | Primary Care | Massimo Ramos | | | 2019 | Visit | | MD Fer [address] | | | | | | [place] | | | | | | [address] | | | | | | | | +--------+---------+ + + + | 10/03/ | Office | Neurology | Fabián Carias MD | | | 2019 | Visit | | [address] | | | | | | [place] | | | | | | [address] | | | | | | | [...] | | | care | | | Monitoring Engineer-C | | | | | | [...] | | | care | | | Monitoring Engineer-C | | | | | | [...] | | | care | | | Monitoring Engineer-C | | | | | | [...] | | | care | | | Monitoring Engineer-C | | | | | | | linical | + +--------+ +---+-----+ + + + | Note: Pt will | | check CBG's daily x1 | | Pt will take Lantis as | | prescribed | + + documented as of this encounter Visit Diagnoses Not on filedocumented in this encounter"
--- OUTSIDE RECORDS SUMMARY | ~2019-02-17 | XMS | Encounter Summary ---
Demographics + + + | Address | [address] | | | [place] [address] | + + + | Home Phone | | + + + | Preferred Language | Unknown | + + + | Marital Status | | + + + | Mu-Ism Affiliation | 1025 | + + + | Race | Unknown | + + + | Ethnic Group | Unknown | + + + Author + + + | Author | [facility] | | | and [place] | + + + | Organization | [facility] | | | [...] Team Providers + +------+ + | Care Finishing Machine Tender Name | Role | Phone | + +------+ + | Horacio Silvestre DO | PCP | | + +------+ + Reason for Visit + + + | Reason | Comments | + + + | Medical Problem | | | (Major) | | + + + Encounter Details +--------+ + + + + | Date | Type | Department | Care Team | Description | +--------+ + + + + | 05/12/ | Telephone | [facility] | Horacio Silvestre, | Medical Problem | | 2019 | | [facility] | DO [address] [place] | (Major) | | | | [facility] | [facility], [place] | | | | [address] [place], | [address] | | | | | [place] [address] | [phone] | | | | | [phone] | | | +--------+ + + + [...] [place] | | | | | | [address] | | | | | | [phone] | | | | | | | | +--------+---------+ + + + | 02/26/ | Office | Urology | Lillie Fowler | | | 2018 | Visit | | LILLIE Lopez [address] | | | | | | [address] | | | | | | [place], [place] | | | | | | [address] | | | | | | [phone] | | | | | | | | +--------+---------+ + + + | 03/16/ | Office | Neurology | Theresa, | | | 2018 | Visit | | SHONDA Mckinney [address] | | | | | [address] [place], | | | | | | [place] [address] | | | | | | [phone] | | | | | | | | +--------+---------+ + + + | 04/12/ | Office | Primary Care | Massimo Ramos | | | 2019 | Visit | | MD Fer [address] | | | | | | [place] | | | | | | [address] | | | | | | | | +--------+---------+ + + + | 10/03/ | Office | Neurology | Fabián Carias MD | | | 2019 | Visit | | [address] | | | | | | [place] | | | | | | [address] | | | | | | | [...] | | | care | | | Sales Manager [employer] | | | | | | | [...] | | | care | | | Sales Manager [employer] | | | | | | | [...] | | | care | | | Sales Manager [employer] | | | | | | | [...] | | | care | | | Sales Manager [employer] | | | | | | | linical | + +--------+ +---+-----+ + + + | Note: Pt will | | check CBG's daily x1 | | Pt will take Lantis as | | prescribed | + + documented as of this encounter Visit Diagnoses Not on filedocumented in this encounter"
--- OUTSIDE RECORDS SUMMARY | ~2019-02-17 | XMS | Clinical Summary ---
Demographics + + + | Address | [address] | | | [place] [address] | + + + | Home Phone [...] Team Providers + +------+ + | Care Coke Crusher Operator Name | Role | Phone | [...] 10/2 | | Activ | | (MYCOSTATIN) [id number] | times daily. | | | 3/20 [...] | + + + | Atherosclerosis of [place] coronary artery of [place] heart without | 08/08/2017 | | angina [...] | 03/07/2017 | + + + | residential current use of aspirin | 03/07/2017 | [...] 9 | + + + + | residential current use of non-steroidal anti-inflammatories | 04/08/19 [...] 9 | + + + + | residential current use of opiate analgesic | 06/28/19 [...] Case | | | | | | Hide Tanner-Clinical | | +--------+ + + + + | 01/21/ | Telephone | Primary Care | Massimo Ramos | Appointment Question | | 2018 | | | MD Fer | | +--------+ + + + + | 01/18/ | Telephone | Primary Care | Charline Banks, | Care Coordination | | 2018 | | | Case | | | | | | Hide Tanner-Clinical | | +--------+ + + + + | 01/15/ | Telephone | Primary Care | Charline Banks, | Care Coordination | | 2018 | | | Case | | | | | | Hide Tanner-Clinical | | +--------+ + + + + [...] Case | | | | | | Hide Tanner-Clinical | | +--------+ + + + + | 12/22/ | Telephone | Primary Care | Charline Banks, | Care Coordination | | 2018 | | | Case | | | | | | Hide Tanner-Clinical | | +--------+ + + + + | 12/17/ | Clinical | Primary Care | Renato Marks, | | | 2018 | Support | | DRYWALL HANGER HELPER | | +--------+ + + + + | 12/14/ | Telephone | Primary Care | Charline Banks, | Transitions Of Care | | 2018 | | | Case | | | | | | Hide Tanner-Clinical | | +--------+ + + + + | 12/10/ | Telephone | Primary Care | Charline Banks, | Care Coordination | | 2018 | | | Case | | | | | | Hide Tanner-Clinical | | +--------+ + + + + [...] Case | | | | | | Hide Tanner-Clinical | | +--------+ + + + + | 12/01/ | Telephone | Primary Care | Horacio Silvestre, | Hospice Home Visit | | 2019 | | | DO | | +--------+ + + + + | 11/27/ | Office | Primary Care | Renato Marks, | Preventative health | | 2018 | Visit | | DRYWALL HANGER HELPER | care (Primary Dx); | | | [...] hyperglycemia | | | | | | ([facility]) | +--------+ + + + + | 11/23/ | Telephone | Primary Care | Charline Banks, | Care Coordination | | 2018 | | | Case | | | | | | Hide Tanner-Clinical | | +--------+ + + + + [...] [place] | | | | | | [address] | | | | | | [phone] | | | | | | | | +--------+---------+ + + + | 02/26/ | Office | Urology | Lillie Fowler | | | 2018 | Visit | | LILLIE Lopez [address] | | | | | | [address] | | | | | | [place] | | | | | | [address] | | | | | | [phone] | | | | | | | | +--------+---------+ + + + | 03/16/ | Office | Neurology | Theresa, | | | 2018 | Visit | | [address] | | | | | [address] [place], | | | | | | [place] [address] | | | | | | [phone] | | | | | | | | +--------+---------+ + + + | 04/12/ | Office | Primary Care | Massimo Ramos | | | 2019 | Visit | | MD Fer [address] | | | | | | [address] [place] | | | | | | [address] | | | | | | | | +--------+---------+ + + + | 10/03/ | Office | Neurology | Jalyn Carias MD | | | 2019 | Visit | | [address] | | | | | | [place] | | | | | | [address] | | | | | | | [...] | | | care | | | Hide Tanner-C | | | | | | | [...] | | | care | | | Hide Tanner-C | | | | | | | [...] | | | care | | | Hide Tanner-C | | | | | | | [...] | | | care | | | Hide Tanner-C | | | | | | | [...] | | PARSON | | 02/28/ | [id number] | | PreloadedImplanted: Qty: 1 on | | | MEDICAL | | 2019 | 0022 | | 04/28/2017 by Erlin, | | | [employer] - | | | /[id number] | | Tay Buckner MD at [facility] | | | [place] | | | [id number] | | [facility] | | | | | | / [...] J?MRN: | | | | | | [id number] | | | [id number] | | | riteri | | | [...] | | | [place] | | | Diet Assistant | | | al | | | [...] | | | [place] | | | Diet Assistant | | | al | | | [...] | | | [place] | | | Diet Assistant | | | al | | | [...] | | | [place] | | | Diet Assistant | | | al | | | [...] | | | [place] | | | Diet Assistant | | | al | | | [...] | | | [place] | | | Diet Assistant | | | al | | | [...] | | | [place] | | | Diet Assistant | | | al | | | [...] J?MRN: | | | | | | [id number] | | | [id number] | | | riteri | | | [...] | | | 2019 | | | [place] | | | [place] | | | [place] | | | [place] | | | [place] | | | Diet Assistant | | | al | | | [...] | | | [place] | | | Diet Assistant | | | al | | | [...] | | | [place] | | | Diet Assistant | | | al | | | [...] | | | [place] | | | Diet Assistant | | | al | | | [...] | | | [place] | | | Diet Assistant | | | al | | | [...] | | | [place] | | | Diet Assistant | | | al | | | [...] | | | [place] | | | Diet Assistant | | | al | | | [...] | + +--------+ + + + | HI INJECT TRIGGER | Routin | 12/03/2018 | [...] - 1.030 | [facility] | | | [place] | | | [facility] | | | [...] + + | [facility] | [address] | [place] [address] | [phone] | | [facility] | | | [...] the attending | LABORATORY | | physician. Diea-bof-uvirbtu drugs may cross react with some methods. [...] + + | [facility] | [address] | [place] [address] | [phone] | | HOSPITAL [facility] | | | [...] | 0.07 | 0.00 - 0.15 | [facility] | | | Immature | | K/uL [...] + + | [facility] | [address] | [place] [address] | [phone] | | HOSPITAL [facility] | | | [...] + + | [facility] | [address] | [place] [address] | [phone] | | HOSPITAL [facility] | | | [...] + + | [facility] | [address] | [place] [address] | [phone] | | HOSPITAL [facility] | | | [...] | mL/min/1.73m2 | [facility] | | | CHINESE | RATE,ESTIMATED | | HOSPITAL | | | | mL/min/1.13f6Avii than | | LABORATORY | | | [...] + + | [facility] | [address] | [place] [address] | [phone] | | HOSPITAL [facility] | | | [...] + + | [facility] | [address] | [place] [address] | [phone] | | HOSPITAL [facility] | | | [...] | mL/min/1.73m2 | [facility] | | | CHINESE | | | HOSPITAL | | | [...] + + | [facility] | [address] | [place] [address] | [phone] | | HOSPITAL [facility] | | | [...] + + | [facility] | [address] | [place] [address] | [phone] | | HOSPITAL [facility] | | | [...] + + | [facility] | [address] | [place] [address] | [phone] | | HOSPITAL [facility] | | | [...] + + | [facility] | [address] | [place] [address] | [phone] | | HOSPITAL [facility] | | | [...] + + | [facility] | [address] | [place] [address] | [phone] | | HOSPITAL [facility] | | | [...] + + | [facility] | [address] | [place] [address] | [phone] | | HOSPITAL [facility] | | | [...] + + | [facility] | [address] | [place] [address] | [phone] | | H[facility]ITAL [facility] | | | [...] | cutoff point for the diagnosis of MO is 0.8 ng/mL for the Troponin I | | | method. | | + + + + + + + + | Performing | Address | City/State[facility] | Phone Number | | Organization | | | | + + + + + | [facility] | [address] | [place] [address] | [phone] | | [facility]PITAL [facility] | | | [...] + + | [facility] | [address] | [place] [address] | [phone] | | H[facility]PITAL [facility] | | | [...] + + | [facility] | [address] | [place] [address] | [phone] | | HOSPITAL [facility] | | | [...] + + | [facility] | [address] | [place] [address] | [phone] | | HOSPITAL [facility] | | | [...] + + | PSA, TOTAL PERFORMED ON [employer] XP. TEST RESULT MAY NOT | [facility] | | CORRELATE WITH OTHER INSTRUMENTS. | HOSPITAL | | | LABORATORY | + + + + + + + + | Performing | Address | City/State/Zipcode | Phone Number | | Organization | | | | + + + + + | [facility] | [address] | [place] [address] | [phone] | | HOSPITAL LAB[facility] | | | [...] JALYN CARIAS M.D. | | | Neurologist [phone] Electronically signed NOTE: Part of | | | this report was transcribed using voice recognition | | | software. Every effort was made to ensure | | | accuracy. However, inadvertent computerize | | | hyperion administrator errors may be present | | [...] +---------+--------+ | [employer] | [place] | [id number] | 01/29/ | | | Indemn | | | CHOICE | | 2017-P | | | ity | | | PC3 | | resent | | | | + +--------+ +--------+ +---------+--------+ | [employer]MIN | [place] | [id number] | 01/29/ | | | Indemn | | | NS | | 2016-P | | | ity | | | ADMIN | | resent | | | | | | [place] | | | | | | | | [place] | | | | | | + +--------+ +--------+ +---------+--------+ | MEDICARE | MEDICA | [id number] | 03/19/ | [phone] | | Medica | | | RE | | 2016-P | 5 | | re | | | PART A | | resent | | | | + +--------+ +--------+ +---------+--------+ | MEDICARE | MEDICA | [id number] | 06/06/19 | [phone] | | Medica | | | RE | | 04-Pre | 5 | | re | | | PART A | | sent | | | | + +--------+ +--------+ +---------+--------+ | [employer]MIN | [place] | [id number] | | | | Indemn | | [...] | | al/Fam | | 1941 | [phone] | [place] [address] | | | julio | | | 2 (Home) | | + +--------+ +--------+ + + | Geraldo Mcfadden | Person | Self | [birth year] | | [address] [place], | | | al/Fam | | 1941 | [phone] | [place] [address] | | | julio | | | 2 (Home) | | + +--------+ +--------+ + + Advance Directives + + + + + | Type | Date Recorded | Patient | Explanation | | | | Control Officer | | + + + + + | Power of | | | | | Pearl Technician | | | | + + + [...]
--- OUTSIDE RECORDS SUMMARY | ~2019-02-17 | XMS | Encounter Summary ---
Demographics + + + | Address | [address] | | | [place] [address] | + + + | Home Phone | | + + + | Preferred Language | Unknown | + + + | Marital Status | | + + + | Advent Affiliation | 1025 | + + + [...] Team Providers + +------+ + | Care Dna Sequencing Associate Name | Role | Phone | + +------+ + | Ryan Gutiérrez MD | PCP | | + +------+ + Encounter Details +--------+ + + + + | Date | Type | Department | Care Team | Description | +--------+ + + + + | 10/21/ | Hospital | [facility] | Horacio Silvestre, | | | 2017 | Encounter | HOSPITAL [facility] | DO [address] | | | | | [address] [place] | [place], [place] | | | | | [place], [place] | [address] | | | | | [address] | [phone] | | | | | [phone] | | | +--------+ + + + [...] [place] | | | | | | [address] | | | | | | [phone] | | | | | | | | +--------+---------+ + + + | 02/26/ | Office | Urology | Lillie Fowler | | | 2018 | Visit | | LILLIE Lopez [address] | | | | | | [address] | | | | | | [place] | | | | | | [address] | | | | | | [phone] | | | | | | | | +--------+---------+ + + + | 03/16/ | Office | Neurology | Theresa, | | | 2018 | Visit | | [address] | | | | [address] [place], | | | | | | [place] [address] | | | | | | [phone] | | | | | | | | +--------+---------+ + + + | 04/12/ | Office | Primary Care | Massimo Ramos | | | 2019 | Visit | | MD Fer [address] | | | | | | [place] | | | | | | [address] | | | | | | | | +--------+---------+ + + + | 10/03/ | Office | Neurology | Fabián Carias MD | | | 2019 | Visit | | [address] | | | | | | [place] | | | | | | [address] | | | | | | | [...] | | | care | | | Vocational Psychologist-C | | | | | | | [...] | | | care | | | Vocational Psychologist-C | | | | | | | [...] | | | care | | | Vocational Psychologist-C | | | | | | | [...] | | | care | | | Vocational Psychologist-C | | | | | | | [...] + + | TSH | Routin | 10/21/2016 | | Results for this | | | e | 8:14 AM | | procedure are in the | | | | PDT | | results section. | + +--------+ + + + documented in this encounter Results TSH (10/21/2016 8:14 AM PDT) + +-------+ + + + | Component | Value | Ref Range | Performed | Pathologist | | | | | At | Signature | + +-------+ + + + | TSH | 1.16 | 0.36 - 3.74 | EXTERNAL | [...]
--- OUTSIDE RECORDS SUMMARY | ~2019-02-17 | XMS | Encounter Summary ---
Demographics + + + | Address | [address] | | | [place] [address] | + + + | Home Phone [...] Team Providers + +------+ + | Care Oncology Coordinator Name | Role | Phone | + [...] | [address] [place], | [address] | | | | | [place] [address] | [phone] | | | | | [phone] | | | +--------+ + + + [...] [place] | | | | | | [address] | | | | | | [phone] | | | | | | | | +--------+---------+ + + + | 02/26/ | Office | Urology | Lillie Fowler | | | 2018 | Visit | | [address]ILLIE Lopez [address] | | | | | | [address] | | | | | | [place] | | | | | | [address] | | | | | | [phone] | | | | | | | | +--------+---------+ + + + | 03/16/ | Office | Neurology | Theresa, | | | 2018 | Visit | | [address] | | [address] [place], | | | | | | [place] [address] | | | | | | [phone] | | | | | | | | +--------+---------+ + + + | 04/12/ | Office | Primary Care | Massimo Ramos | | | 2019 | Visit | | MD Fer [address] | | | | | | [place] | | | | | | [address] | | | | | | | | +--------+---------+ + + + | 10/03/ | Office | Neurology | Fabián Carias MD | | | 2019 | Visit | | [address] | | | | | | [place] | | | | | | [address] | | | | | | | [...] | | | care | | | Tax Attorney-C | | | | | | | [...] | | | care | | | Tax Attorney-C | | | | | | | [...] | | | care | | | Tax Attorney-C | | | | | | | [...] | | | care | | | Tax Attorney-C | | | | | | | [...]
--- OUTSIDE RECORDS SUMMARY | ~2019-02-17 | XMS | Encounter Summary ---
Demographics + + + | Address | [address] | | | [place] [address] | + + + | Home Phone | | + + + | Preferred Language | Unknown | + + + | Marital Status | | + + + | Spiritism Affiliation | 1025 | + + + | Race | Unknown | + + + | Ethnic Group | Unknown | + + + Author + + + | Author | [facility] | | | and [place] | + + + | Organization | [facility] | | [...] Team Providers + +------+ + | Care Otolaryngologist Name | Role | Phone | + +------+ + | Ryan Gutiérrez MD | PCP | | + +------+ + Encounter Details +--------+ + + + + | Date | Type | Department | Care Team | Description | +--------+ + + + + | 09/24/ | Hospital | [facility] | Scott De Oliveira | | | 2016 | Encounter | [facility] | DO [address] | | | | | SURGERY [address] | [address] | | | | | [address] [place], | [facility] [place] | | | | | [place] [address] | [address] | | | | | [phone] | [phone] | | | | | | | [...] [place] | | | | | | [address] | | | | | | [phone] | | | | | | | | +--------+---------+ + + + | 02/26/ | Office | Urology | Lillie Fowler | | | 2018 | Visit | | LILLIE Lopez [address] | | | | | | [address] | | | | | | [place] | | | | | | [address] | | | | | | [phone] | | | | | | | | +--------+---------+ + + + | 03/16/ | Office | Neurology | Theresa, | | | 2018 | Visit | | [address] | | | [address] [place], | | | | | | [place] [address] | | | | | | [phone] | | | | | | | | +--------+---------+ + + + | 04/12/ | Office | Primary Care | Massimo Ramos | | | 2019 | Visit | | MD Fer [address] | | | | | | [place] | | | | | | [address] | | | | | | | | +--------+---------+ + + + | 10/03/ | Office | Neurology | Fabián Carias MD | | | 2019 | Visit | | [address] | | | | | | [place] | | | | | | [address] | | | | | | | [...] | | | care | | | Battery Test Engineer-C | | | | | | [...] | | | care | | | Battery Test Engineer-C | | | | | | [...] | | | care | | | Battery Test Engineer-C | | | | | | [...] | | | care | | | Battery Test Engineer-C | | | | | | | linical | + +--------+ +---+-----+ + + + | Note: Pt will | | check CBG's daily x1 | | Pt will take Lantis as | | prescribed | + + documented as of this encounter Visit Diagnoses Not on filedocumented in this encounter"
--- OUTSIDE RECORDS SUMMARY | ~2019-02-17 | XMS | Encounter Summary ---
Demographics + + + | Address | [address] | | | [place] [address] | + + + | Home Phone | | + + + | Preferred Language | Unknown | + + + | Marital Status | | + + + | Jain Affiliation | 1025 | + + + [...] Team Providers + +------+ + | Care Plastic Panel Installer Name | Role | Phone | + [...] Tereza KAUFFMAN | | | | | [phone] | [place] [address] | | +--------+ + + + + [...] [place] | | | | | | [address] | | | | | | [phone] | | | | | | | | +--------+---------+ + + + | 02/26/ | Office | Urology | Lillie Fowler | | | 2018 | Visit | | [address] | | | | | | [address] | | | | | | [place], [place] | | | | | | [address] | | | | | | [phone] | | | | | | | | +--------+---------+ + + + | 03/16/ | Office | Neurology | Theresa, | | | 2018 | Visit | | [address] | | | [address] [place], | | | | | | [place] [address] | | | | | | [phone] | | | | | | | | +--------+---------+ + + + | 04/12/ | Office | Primary Care | Massimo Ramos | | | 2019 | Visit | | MD Fer [address] | | | | | | [place] | | | | | | [address] | | | | | | | | +--------+---------+ + + + | 10/03/ | Office | Neurology | Fabián Carias MD | | | 2019 | Visit | | [address], [place] | | | | | | [place], [place] | | | | | | [address] | | | | | | | [...] | | | care | | | Porcelain Slusher-C | | | | | | | [...] | | | care | | | Porcelain Slusher-C | | | | | | | [...] | | | care | | | Porcelain Slusher-C | | | | | | | [...] | | | care | | | Porcelain Slusher-C | | | | | | | [...] + | XR CHEST AP PORTABLE | Routin | 07/24/2018 | | Results for this | | | e | 11:40 AM | | procedure are in the | | | | PDT | | results section. | + +--------+ + + + documented in this encounter Results XR Chest AP Portable (07/24/2018 11:40 AM PDT) + + | Specimen | [...]
--- OUTSIDE RECORDS SUMMARY | ~2019-02-17 | XMS | Encounter Summary ---
Demographics + + + | Address | [address] | | | [place] [address] | + + + | Home Phone | | + + + | Preferred Language | Unknown | + + + | Marital Status | | + + + | Scientologist Affiliation | 1025 | + + + | Race | Unknown | + + + | Ethnic Group | Unknown | + + + Author + + + | Author | [facility] | | | and [place] | + + + | Organization | [facility] | | | [...] Team Providers + +------+ + | Care Commercial Collector Name | Role | Phone | + +------+ + | Horacio Silvestre DO | PCP | | + +------+ + Reason for Visit Diagnostic/Screening (Routine) +--------+--------+ + + + + | Status | Reason | Specialty | Diagnoses / | Referred By | Referred To | | | | | Procedures | Contact | Contact | +--------+--------+ + + + + | Closed | | Radiology | Procedures | Konrad, | Cc Wgr Xray | | | | | [facility] | Horacio Tim, DO | [address] | | | | | | [address] | [address] [place] | | | | | | [place], | [place], [place] | | | | | | [place] | [address] | | | | | | [address] | Phone: | | | | | | Phone: | [phone] | | | | | | [phone] | Fax: | | | | | | Fax: | [phone] | | | | | | [phone] | | +--------+--------+ + + + + Encounter Details +--------+ + + + + | Date | Type | Department | Care Team | Description | +--------+ + + + + | 10/27/ | Hospital | [facility] | Horacio Silvestre, | Panlobular emphysema | | 2019 | Encounter | HOSPITAL XRAY [address] | [address] | (HCC); History of | | | | [address] [place] | [place], [place] | bacterial pneumonia | | | | [place], [place] | [address] | | | | | [address] | [phone] | | | | | [phone] | | | +--------+ + + + [...] mLs by | 360 | 0 | 10/20/19 | | | mL nebulizer | nebulization [...] 0 | | | | hydroCHLOROthiazide | every morning. | | | | [...] + + + +---------+ + + | Nebulizer | 1 each by Other | 1 each | 0 | 10/27/19 | | | MISCIndications: | route Daily. | | | 19 | 9 | | Panlobular emphysema | | | [...] [place] | | | | | | [address] | | | | | | [phone] | | | | | | | | +--------+---------+ + + + | 02/26/ | Office | Urology | Lillie Fowler | | | 2018 | Visit | | [address]IE [address] | | | | | | [address] | | | | | | [place] | | | | | | [address] | | | | | | [phone] | | | | | | | | +--------+---------+ + + + | 03/16/ | Office | Neurology | Theresa, | | | 2018 | Visit | | [address] | | | | [address] [place], | | | | | | [place] [address] | | | | | | [phone] | | | | | | | [...] [place] | | | | | | [address] | | | | | | | [...] | | | care | | | Band Attacher-C | | | | | | | [...] | | | care | | | Band Attacher-C | | | | | | | [...] | | | care | | | Band Attacher-C | | | | | | | [...] | | | care | | | Band Attacher-C | | | | | | | [...] + | XR CHEST PA AND | Routin | 10/27/2018 | Panlobular | Results for this | | LATERAL | e | 2:24 PM | emphysema (HCC) | procedure are in the | | | | PDT | History of bacterial | results section. | | | | | pneumonia | | + +--------+ + + + documented in this encounter Results XR Chest PA and Lateral (10/27/2018 2:24 PM PDT) + + | Specimen | + + | | + + + + + | Impressions | Performed At | + + + | IMPRESSION: 1. Vague ground-glass left mid lower lung zone. This | [facility] | | finding could relate to overlap of normal anatomy, interstitial | | | pneumonia, or edema. 2. Mild prominence of the donya bilaterally which | | | may relate to the adenopathy demonstrated previously. Three-month | | | follow-up CT thorax versus PET-CT recommended to further evaluate. | | | The finding could relate to reactive adenopathy over malignant | | | adenopathy not excluded. 3. The previously noted left lower lobe | | | nodule is not clearly demonstrated. This finding may relate to | | | difference in imaging modality. Three-month follow-up CT thorax | | | versus PET-CT recommended. Dictated by: Troy Lawrence | | | | | + + + + + + | Narrative | Performed At | + + + | EXAMINATION: XR CHEST PA AND LATERAL HISTORY: emphysema with | [facility] | | history of pneumonia COMPARISON STUDY: CT chest 10/12/2018, | | | 09/30/2018, 05/27/2018, 03/16/2018, 12/25/2016, 04/10/2015. | | | FINDINGS: Prominence of the donya noted bilateral. No lobar | | | consolidation identified. No pleural effusion. In the left thorax | | | demonstrates subtle ground-glass appearance at the mid lower lung | | | zone. Heart size within normal limits. No acute bone finding. | | + + + + + | Procedure Note | + + | Osito, Rad Results In - 10/27/2018 3:01 PM PDT EXAMINATION:XR CHEST PA AND | | LATERALHISTORY:emphysema with history of pneumoniaCOMPARISON STUDY:CT chest 10/12/2018, | | 09/30/2018, 05/27/2018, 03/16/2018, 12/25/2016, 04/10/2015.FINDINGS:Prominence of the | | donya noted bilateral. No lobar consolidation identified. No pleural effusion. In the | | left thorax demonstrates subtle ground-glass appearance at the mid lower lung zone.Heart | | size within normal limits. No acute bone finding.IMPRESSION: IMPRESSION:1. Vague | | ground-glass left mid lower lung zone. This finding could relate to overlap of normal | | anatomy, interstitial pneumonia, or edema.2. Mild prominence of the donya bilaterally | | which may relate to the adenopathy demonstrated previously. Three-month follow-up CT | | thorax versus PET-CT recommended to further evaluate. The finding could relate to | | reactive adenopathy over malignant adenopathy not excluded.3. The previously noted left | | lower lobe nodule is not clearly demonstrated. This finding may relate to difference in | | imaging modality. Three-month follow-up CT thorax versus PET-CT recommended.Dictated | | by: Troy Lawrence | |IMPRESSION: | |IMPRESSION: | |1. Vague ground-glass left mid lower lung zone. This finding could relate to overlap of no rmal anatomy, interstitial pneumonia, or edema. | |2. Mild prominence of the donya bilaterally which may relate to the adenopathy demonstrated previously. Three-month follow-up CT thorax versus PET-CT recommended to further evaluate. The finding could relate to reactive adenopathy over malignant | |adenopathy not excluded. | |3. The previously noted left lower lobe nodule is not clearly demonstrated. This finding m ay relate to difference in imaging modality. Three-month follow-up CT thorax versus PET-CT recommended. | | | | | |Dictated [...] (HCC) Other emphysema | + + | History of bacterial pneumonia Personal history of pneumonia (recurrent) | + + documented in this encounter Additional Health Concerns + + + + | Infection | Noted Time | Resolved Time | + + + + | Methicillin-resistant Staphylococcus aureus | 07/20/2018 4:00 PM | | | | PDT | | + + + + documented as of this encounter"
--- OUTSIDE RECORDS SUMMARY | ~2019-02-17 | XMS | Encounter Summary ---
Demographics + + + | Address | [address] | | | [place] [address] | + + + | Home Phone [...] Team Providers + +------+ + | Care Slip Seat Coverer Name | Role | Phone | + [...] Tereza KAUFFMAN | | | | | [phone] | [place] [address] | | +--------+ + + + + [...] [place] | | | | | | [address] | | | | | | [phone] | | | | | | | | +--------+---------+ + + + | 02/26/ | Office | Urology | Lillie Fowler | | | 2018 | Visit | | [address] | | | | | | [address] | | | | | | [place], [place] | | | | | | [address] | | | | | | [phone] | | | | | | | | +--------+---------+ + + + | 03/16/ | Office | Neurology | Theresa, | | | 2018 | Visit | | [address] | | | | | [address] [place], | | | | | | [place] [address] | | | | | | [phone] | | | | | | | | +--------+---------+ + + + | 04/12/ | Office | Primary Care | Massimo Ramos | | | 2019 | Visit | | MD Fer [address] | | | | | | [address] [place] | | | | | | [address] | | | | | | | | +--------+---------+ + + + | 10/03/ | Office | Neurology | Fabián Craias MD | | | 2019 | Visit | | [address], [place] | | | | | | [place], [place] | | | | | | [address] | | | | | | | [...] | | care | | | Director Maternal Child-C | | | | | | | [...] | | care | | | Director Maternal Child-C | | | | | | | [...] | | care | | | Director Maternal Child-C | | | | | | | [...] | n of | | | Charline DosS antos, | | | | complex | | | Case | | | | care | | | Director Maternal Child-C | | | | | | | [...]
--- OUTSIDE RECORDS SUMMARY | ~2019-02-17 | XMS | Encounter Summary ---
Demographics + + + | Address | [address] | | | [place] [address] | + + + | Home Phone | | + + + | Preferred Language | Unknown | + + + | Marital Status | | + + + | Tenriism Affiliation | 1025 | + + + | Race | Unknown | + + + | Ethnic Group | Unknown | + + + Author + + + | Author | [facility] | | | and [place] | + + + | Organization | [facility] | | | [...] Team Providers + +------+ + | Care Senior Manufacturing Test Engineer Name | Role | Phone | + +------+ + | Ryan Gutiérrez MD | PCP | | + +------+ + Encounter Details +--------+ + + + + | Date | Type | Department | Care Team | Description | +--------+ + + + + | 11/08/ | Hospital | [facility] | Horacio Silvestre, | | | 2017 | Encounter | [facility] [address] | DO [address] | | | | | [address] [place] | [place], [place] | | | | | [place], [place] | [address] | | | | | [address] | [phone] | | | | | [phone] | | | +--------+ + + + [...] [place] | | | | | | [address] | | | | | | [phone] | | | | | | | | +--------+---------+ + + + | 02/26/ | Office | Urology | Sergio Fowlera | | | 2018 | Visit | | [address] | | | | | | [address] | | | | | | [place] | | | | | | [address] | | | | | | [phone] | | | | | | | | +--------+---------+ + + + | 03/16/ | Office | Neurology | Theresa, | | | 2018 | Visit | | [address] | | | | | [address] [place], | | | | | | [place] [address] | | | | | | [phone] | | | | | | | | +--------+---------+ + + + | 04/12/ | Office | Primary Care | Massimo Ramos | | | 2019 | Visit | | [address] | | | | | | [place] | | | | | | [address] | | | | | | | | +--------+---------+ + + + | 10/03/ | Office | Neurology | Fabián Carias MD | | | 2019 | Visit | | [address] | | | | | | [place] | | | | | | [address] | | | | | | | [...] | | | care | | | Technologies Division Chair-C | | | | | | | [...] | | | care | | | Technologies Division Chair-C | | | | | | | [...] | | | care | | | Technologies Division Chair-C | | | | | | | [...] | | | care | | | Technologies Division Chair-C | | | | | | | [...] | MRI BRAIN WO | Routin | 11/08/2016 | | Results for this | | CONTRAST | e | 11:54 AM | | procedure are in the | | | | PDT | | results section. | + +--------+ + + + documented in this encounter Results MRI Brain wo Contrast (11/08/2016 11:54 AM PDT) + + | Specimen | + + | | + + + + + | Narrative | Performed At | + + + | EXAMINATION: MRI BRAIN WO HISTORY: Set to TECHNIQUE: | | | Multiplanar multi sequence MRI of the brain is performed without | | | contrast. FINDINGS: Diffusion-weighted images demonstrate no | | | focal abnormal hyperintense signal. Again noted is hypo intense T1 | | | hyperintense 8 mm greatest length T2 lesion at the right cerebellum | | | unchanged compatible with remote lacunar infarct. Mild prominence | | | of the sulci is redemonstrated. Normal flow voids are present at | | | the cavernous internal carotid arteries and basilar artery. Mild | | | periventricular and subcortical white matter hyperintensity is present | | | on the FLAIR series. The mastoid air cells and middle ears are | | | clear. The paranasal sinuses demonstrate mild mucosal thickening | | | without air-fluid level. The orbital contents appear within normal | | | limits. IMPRESSION: 1. No acute finding. 2. Small lacunar right | | | cerebellar infarct redemonstrated unchanged. 3. Mild white matter | | | changes nonspecific but most typically associated with microvascular | | | disease. JOB #: [id number] Digitally Released by: Drew Lawrence | | | Read By: DREW LAWRENCE MD Date: 11/08/2016 13:33 | | + + + + + | Procedure Note | + + | Osito, Rad Results In - 04/17/2017 1:20 PM PST EXAMINATION: | | MRI BRAIN WO | | | | HISTORY: | | Set to | | | | TECHNIQUE: | | Multiplanar multi sequence MRI of the brain is performed without contrast. | | | | FINDINGS: | | Diffusion-weighted images demonstrate no focal abnormal hyperintense signal. | | | | Again noted is hypo intense T1 hyperintense 8 mm greatest length T2 lesion at | | the right cerebellum unchanged compatible with remote lacunar infarct. | | | | Mild prominence of the sulci is redemonstrated. Normal flow voids are present | | at the cavernous internal carotid arteries and basilar artery. Mild | | periventricular and subcortical white matter hyperintensity is present on the | | FLAIR series. | | | | The mastoid air cells and middle ears are clear. The paranasal sinuses | | demonstrate mild mucosal thickening without air-fluid level. The orbital | | contents appear within normal limits. | | | | IMPRESSION: | | 1. No acute finding. | | 2. Small lacunar right cerebellar infarct redemonstrated unchanged. | | 3. Mild white matter changes nonspecific but most typically associated with | | microvascular disease. | | | | | | JOB #: [id number] | | Digitally Released by: Drew Lawrence | | | | | | Read By: DREW LAWRENCE MD | | Date: 11/08/2016 13:33 | | | + + documented in this encounter Visit Diagnoses Not on filedocumented in this encounter"
--- OUTSIDE RECORDS SUMMARY | ~2019-02-17 | XMS | Encounter Summary ---
Demographics + + + | Address | [address] | | | [place] [address] | + + + | Home Phone | | + + + | Preferred Language | Unknown | + + + | Marital Status | | + + + | Latter-Day Affiliation | 1025 | + + + | Race | Unknown | + + + | Ethnic Group | Unknown | + + + Author + + + | Author | [facility] | | | and [place] | + + + | Organization | [facility] | | | [...] Team Providers + +------+ + | Care Neurobiologist Name | Role | Phone | + [...] | | | | [place], [place] | [place] [address] | | | | | [address] | [phone] | | | | | [phone] | | | +--------+ + + + [...] [place] | | | | | | [address] | | | | | | [phone] | | | | | | | | +--------+---------+ + + + | 02/26/ | Office | Urology | Lillie Fowler | | | 2018 | Visit | | [address] | | | | | | [address] | | | | | | [place], [place] | | | | | | [address] | | | | | | [phone] | | | | | | | | +--------+---------+ + + + | 03/16/ | Office | Neurology | Theresa, | | | 2018 | Visit | | [address] | | | | | [address] [place], | | | | | | [place] [address] | | | | | | [phone] | | | | | | | | +--------+---------+ + + + | 04/12/ | Office | Primary Care | Massimo Ramos | | | 2019 | Visit | | MD Fer [address] | | | | | | [place] | | | | | | [address] | | | | | | | | +--------+---------+ + + + | 10/03/ | Office | Neurology | Fabián Carias MD | | | 2019 | Visit | | [address] | | | | | | [place] | | | | | | [address] | | | | | | | [...] | | | care | | | Vice President Of Talent Management-C | | | | | | | [...] | | | care | | | Vice President Of Talent Management-C | | | | | | | [...] | | | care | | | Vice President Of Talent Management-C | | | | | | | [...] | | | care | | | Vice President Of Talent Management-C | | | | | | | linical | + +--------+ +---+-----+ + + + | Note: Pt will | | check CBG's daily x1 | | Pt will take Lantis as | | prescribed | + + documented as of this encounter Visit Diagnoses Not on filedocumented in this encounter"
--- OUTSIDE RECORDS SUMMARY | ~2019-02-17 | XMS | Encounter Summary ---
Demographics + + + | Address | [address] | | | [place] [address] | + + + | Home Phone [...] Team Providers + +------+ + | Care Hotel Or Motel Cleaning Supervisor Name | Role | Phone | [...] Description | +--------+--------+ + + + | 01/30/ | Refill | [facility] | Natalie Thompson, | Medication Refill | | 2016 | | [facility] | [facility] | | | | | [facility] [address] | | | | | | [address] [facility] [place], | | | | | | [place] [address] | | | | | | [phone] | | | +--------+--------+ + + + [...] [place] | | | | | | [address] | | | | | | [phone] | | | | | | | | +--------+---------+ + + + | 02/26/ | Office | Urology | Lillie Fowler | | | 2018 | Visit | | [address] | | | | | | [address] | | | | | | [place] | | | | | | [address] | | | | | | [phone] | | | | | | | | +--------+---------+ + + + | 03/16/ | Office | Neurology | Theresa, | | | 2018 | Visit | | [address] | | | [address] [place], | | | | | | [place] [address] | | | | | | [phone] | | | | | | | [...] [place] | | | | | | [address] | | | | | | | [...] | | | care | | | Securities Clerk-C | | | | | | | [...] | | | care | | | Securities Clerk-C | | | | | | | [...] | | | care | | | Securities Clerk-C | | | | | | | [...] | | | care | | | Securities Clerk-C | | | | | | | linical | + +--------+ +---+-----+ + + + | Note: Pt will | | check CBG's daily x1 | | Pt will take Lantis as | | prescribed | + + documented as of this encounter Visit Diagnoses Not on filedocumented in this encounter"
--- OUTSIDE RECORDS SUMMARY | ~2019-02-17 | XMS | Encounter Summary ---
Demographics + + + | Address | [address] | | | [place] [address] | + + + | Home Phone | | + + + | Preferred Language | Unknown | + + + | Marital Status | | + + + | Christian Affiliation | 1025 | + + + | Race | Unknown | + + + | Ethnic Group | Unknown | + + + Author + + + | Author | [facility] | | | and [place] | + + + | Organization | [facility] | | | [...] Team Providers + +------+ + | Care Rug Cleaning Supervisor Name | Role | Phone | + +------+ + | Ryan Gutiérrez MD | PCP | | + +------+ + Encounter Details +--------+ + + + + | Date | Type | Department | Care Team | Description | +--------+ + + + + | 07/08/ | Hospital | [facility] | Scott De Oliveira | | | 2017 | Encounter | [facility] | DO [address] | | | | | SURGERY [address] | | | | | [address] [place], | [facility] [place] | | | | | [place] [address] | [address] | | | | | [phone] | [phone] | | | | | | | [...] [place] | | | | | | [address] | | | | | | [phone] | | | | | | | | +--------+---------+ + + + | 02/26/ | Office | Urology | Lillie Fowler | | | 2018 | Visit | | [address] | | | | | | [address] | | | | | | [place] | | | | | | [address] | | | | | | [phone] | | | | | | | | +--------+---------+ + + + | 03/16/ | Office | Neurology | Theresa, | | | 2018 | Visit | | [address] | | | | | [address] [place], | | | | | | [place] [address] | | | | | | [phone] | | | | | | | | +--------+---------+ + + + | 04/12/ | Office | Primary Care | Massimo Ramos | | | 2019 | Visit | | MD Fer [address] | | | | | | [place] | | | | | | [address] | | | | | | | | +--------+---------+ + + + | 10/03/ | Office | Neurology | Fabián Carias MD | | | 2019 | Visit | | [address] | | | | | | [place] | | | | | | [address] | | | | | | | [...] | | | care | | | Dowel Inserting 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-C | | | | | [...] | | | care | | | Dowel Inserting 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-C | | | | | [...] | | | care | | | Dowel Inserting 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-C | | | | | [...] | | | care | | | Dowel Inserting 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-C | | | | | | | linical | + +--------+ +---+-----+ + + + | Note: Pt will | | check CBG's daily x1 | | Pt will take Lantis as | | prescribed | + + documented as of this encounter Visit Diagnoses Not on filedocumented in this encounter"
--- OUTSIDE RECORDS SUMMARY | ~2019-02-17 | XMS | Encounter Summary ---
Demographics + + + | Address | [address] | | | [place] [address] | + + + | Home Phone | | + + + | Preferred Language | Unknown | + + + | Marital Status | | + + + | Yazdanism Affiliation | [id number] | + + + | Race | Unknown | + + + | Ethnic Group | Unknown | + + + Author + + + | Author | [facility] | | | and [place] | + + + | Organization | [facility] | | | [...] Team Providers + +------+ + | Care Analytical Research Chemist Name | Role | Phone | + +------+ + | Horacio Silvestre DO | PCP | | + +------+ + Reason for Visit + + + | Reason | Comments | + + + | Syncope | | + + + | Elevated Blood Sugar | | | (Symptomatic) | | + + + Auth/Cert +--------+--------+ + + + + | Status | Reason | Specialty | Diagnoses / | Referred By | Referred To | | | | | Procedures | Contact | Contact | +--------+--------+ + + + + | | | | Diagnoses | | | | | | | Dehydration | | | | | | | | | | | | | | Hyperglycemi | | | | | | | a | | | | | | | Hyperosmolar | | | | | | | syndrome | | | | | | | | | | +--------+--------+ + + + + Encounter Details +--------+ + + + + | Date | Type | Department | Care Team | Description | +--------+ + + + + | 08/23/ | Hospital | [facility] | [facility] | Hyperosmolar | | 2019 - | Encounter | [facility] | MD [address] | syndrome (Primary | | | | [address] [place] | [address] [place] | Dx); Dehydration; | | 08/25/ | | [place], [place] | [place] [address] | Hyperglycemia | | 2019 | | [phone] | [phone] | | | | | [phone] | | | | | | | Kim Mary, | | | | | | MD [address] | | | | | | [place] [address] | | | | | | [phone] | | | | | | | | | | | | Esteban Calvillo, | | | | | | MD [address] | | | | | | [place] [address] | | | | | | [phone] | | | | | | | | | | | | Faizan Wesley, | | | | | | MD [address] | | | | | | [place] [address] | | | | | | [phone] | | | | | | | [...] + + + | Blood Pressure | 112/63 | 08/25/2018 4:24 AM | | | | | PDT | | + + + + + | Pulse | 66 | 08/25/2018 4:24 AM | | | | | PDT | | + + + + + | Temperature | 36.7 C (98.1 F) | 08/25/2018 4:24 AM | | | | | PDT | | + + + + + | Respiratory Rate | 18 | 08/25/2018 4:24 AM | | | | | PDT | | + + + + + | Oxygen Saturation | 94% | 08/25/2018 7:43 AM | | | | | PDT | | + + + + + | Inhaled Oxygen | - | - | | | Concentration | | | | + + + + + | Weight | 86 kg (189 lb 9.5 | 08/24/2018 12:37 AM | | | | oz) | PDT | | + + + + + | Height | 167.6 cm (5' 6") | 08/23/2018 11:52 PM | | | | | PDT | | + + + + + | Body Mass Index | 30.6 | 08/23/2018 11:52 PM | | | | | PDT [...] encounter Discharge Summaries Faizan Wesley MD - 08/25/2018 9:35 AM PDT MEDICAL HOSPITALIST DISCHARGE SUMMARY Pt. Name/Age/: Geraldo Mcfadden 78 y.o. 1940 Date of Admission: 08/23/2018 Date of Discharge: 08/25/2018 PCP: Horacio Silvestre Admitting Diagnosis: Uncontrolled type 2 DM with non ketotic hyperosmolar hyperglycemia Acute kidney injury secondary to #1 Pseudohyponatremia Discharge Diagnosis: Principal Problem (Resolved): Uncontrolled type 2 diabetes mellitus with hyperosmolar nonketotic hyperglycemia Active Problems: Type 2 diabetes mellitus with diabetic polyneuropathy, with long-term current use of insu gely Dementia Acute kidney injury resolve Pseudohyponatremia resolved Additional discharge history/co-morbidities: Active Ambulatory Problems Diagnosis Date Noted Multilevel degenerative disc disease 05/22/2013 Bilateral carpal tunnel syndrome 05/31/2013 History of stroke without residual deficits 03/07/2017 Gastroesophageal reflux disease without esophagitis 03/07/2017 Acquired hypothyroidism 03/07/2017 Pure hypercholesterolemia 03/07/2017 [...] nonseasonal allergic rhinitis due to pollen 03/07/2017 care home current use of aspirin 03/07/2017 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, 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 06/27/2017 Current use of beta marly 06/30/2017 Panlobular emphysema 08/08/2017 Atherosclerosis of [place] coronary artery of [place] heart without angina pectoris 08/08 On potassium wasting diuretic therapy 08/08/2017 Primary osteoarthritis involving multiple joints 09/30/2017 Vitamin D deficiency disease 09/30/2017 History of bacterial pneumonia 03/16/2018 Insomnia secondary to chronic pain 04/08/2018 Hx of transient ischemic attack (TIA) 04/10/2018 Coordination of complex care 06/01/2018 Acute respiratory failure with hypoxia 07/24/2018 Resolved Ambulatory Problems Diagnosis Date Noted Essential hypertension 03/07/2017 Community acquired pneumonia, unspecified laterality 08/15/2017 Neck pain, chronic 12/15/2017 Chronic bilateral low back pain without sciatica 12/15/2017 Generalized weakness 01/09/2018 Dehydration 01/09/2018 Chronic bilateral low back pain without sciatica 02/19/2018 Hypoxia 03/16/2018 Neutrophilic leukocytosis 03/17/2018 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 current 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 of non-steroidal anti-inflammatories (NSAID) 04/08/2018 Syncope and collapse 05/19/2018 ARF (acute renal failure) 05/26/2018 Pneumonia 05/26/2018 Hypomagnesemia 05/26/2018 Diabetic polyneuropathy associated with type 2 diabetes mellitus 06/27/2018 VIKAS (acute kidney injury) 07/08/2018 Orthostatic hypotension 07/08/2018 Dehydration 07/08/2018 Leukocytosis 07/08/2018 Septic shock 07/24/2018 HCAP (healthcare-associated pneumonia) 07/24/2018 Past Medical History: Diagnosis Date Carpal tunnel syndrome, bilateral 05/31/2013 DDD (degenerative disc disease), cervical 05/22/2013 Diabetes mellitus GERD (gastroesophageal reflux disease) Gout Hiatal hernia Hypertension Melanoma Melanoma 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, left Neck pain, chronic 05/22/2013 Neuropathy Paresthesias - both hands 05/22/2013 Thyroid disease Medications Reconciled upon Discharge are: Discharge Medications Unchanged Medications Details amLODIPine 10 MG tablet Take 10 mg by mouth every morning. aka: NORVASC aspirin 325 mg tablet Take 325 mg by mouth every morning. atorvaSTATin 10 mg tablet Take 1 tablet by mouth every morning. aka: LIPITOR cholecalciferol 1000 units Tabs Take 2,000 Units by mouth every morning. aka: VITAMIN D-3 clopidogrel 75 mg tablet Take 75 mg by mouth every morning. aka: PLAVIX cyanocobalamin 1000 MCG tablet Take 1 tablet by mouth every morning. aka: VITAMIN B-[address] capsule Take 1 capsule by mouth every morning. aka: CYMBALTA hydroCHLOROthiazide 25 mg tablet Take 25 mg by mouth every morning. insulin glargine 100 units/mL injection (vial) Inject 35 Units under the skin every morning. aka: LANTUS levothyroxine 75 MCG tablet Take 75 mcg by mouth every morning (before breakfast). aka: SYNTHROID loperamide 2 mg capsule Take 2 mg by mouth 4 times daily as needed for Diarrhea. aka: IMODIUM losartan 50 mg tablet Take 50 mg by mouth every morning. aka: COZAAR omeprazole 20 mg capsule Take 1 capsule by mouth every morning (before breakfast). aka: priLOSEC pregabalin 300 MG capsule Take 1 capsule by mouth 2 times daily. aka: LYRICA tamsulosin 0.4 mg Caps Take 1 capsule by mouth nightly. aka: FLOMAX testosterone 2 mg/[address] 1 patch onto the skin nightly. aka: ANDRODERM traZODone 50 mg tablet Take 2 tablets by mouth nightly. aka: DESYREL urea 40 % Crea Apply 1 Application topically Daily as needed for Dry Skin. aka: CARMOL Clinical Resume: This is an 78-year-old male with a past medical history significant [facility] who presented to the emergency room with dizziness falls and urinary inconti nence. See H&P. In the emergency room the patient was noted to be hyperglycemic with m ild acute kidney injury. Admitting physician noted that the patient had been noncompliant recently with his insulin. Infectious workup was negative. He was admitted to medical surg [facility] floor and restarted on his long-acting insulin with sliding scale coverage. Patient wa s aggressively hydrated as well. Pseudohyponatremia resolved with adequate IV hydration and control of his glucose. At discharge his sugars are between 100-200. Patient's BMP has no rmalized. Patient states that he is feeling at baseline and ready to go home. There will b e no changes to his chronic home medications. All of which were restarted prior to his disc harge. Case management assess the patient for home health needs. At this time we will have home h ealth revisit and reassess her needs. Patient is not homebound however. He should follow-up with his PCP in 1 week with his blood glucose log. Physical Examination: General: Alert and oriented in no acute distress HEENT: Atraumatic normocephalic, oral mucosa is moist and pink Cardiovascular: Regular rate and rhythm without murmurs rubs or gallops Respiratory: Clear in all 4 quadrants Abdomen: Soft nontender nondistended Significant tests and procedures during admission: Ct Chest Wo Contrast Result Date: 07/26/[address] 07/26/2018 12:01 PM CLINICAL HISTORY: Repeated episodes of pneumonia ov er the last few weeks, known adenopathy in the chest, evaluate for masses, lesions, enlargin g lymphadenopathy COMPARISON: Radiographs July 24 TECHNIQUE: Axial unenhanced images a re performed through the chest, along with multiplanar reformations. FINDINGS: A left appr oach PICC is again present and terminates in the upper SVC. There is calcified plaque in th e aorta and coronary arteries. The main pulmonary artery is borderline to mildly enlarged, measuring up to 3.1 cm in diameter. Mildly prominent lymph nodes are scattered throughout t he mediastinum and measure up to 11 mm short axis in the AP window and 13 mm adjacent to the bronchus intermedius. There is a tiny hiatus hernia. There is no pleural or pericardial e ffusion or pneumothorax. Small, ill-defined ground glass opacities are scattered throughout the right upper and middle lobes, with lesser involvement of the anterior right lower lobe, and minimal involvement of the left lung. Minimal dependent density in the lungs is consist ent with atelectasis. 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 There is a 5 mm noncalcified nodule in the anterolateral, basilar left lower lobe on image 78. Minimal if any bronchial wall thickening is present, without visible airway occlusion. There is rightward thoracic curvature and extensive vertebral spondylosis. A healed fractur e of the upper sternal body is present. Imaged upper abdomen is unremarkable. IMPRESSION - 1. SMALL, ILL-DEFINED GROUND GLASS OPACITIES INVOLVING BOTH LUNGS, GREATEST IN THE RIGHT U PPER AND MIDDLE LOBES, CONSISTENT WITH AN INFECTIOUS OR INFLAMMATORY ETIOLOGY, AND RADIOGRAP HICALLY IMPROVED FROM IMAGING OF JULY 24. MILDLY PROMINENT MEDIASTINAL LYMPH NODES ARE LIK PEGGY REACTIVE. 2. TINY HIGH DENSITY SUBPLEURAL NODULAR FOCI IN BOTH LUNGS WITH A BASILAR PRE DOMINANCE, POSSIBLY REFLECTING GRANULOMATA ALTHOUGH PREVIOUSLY ASPIRATED HIGH DENSITY MATERI AL IS ALSO A CONSIDERATION. 3. BORDERLINE ENLARGEMENT OF THE MAIN PULMONARY ARTERY, WHICH M AY REFLECT PULMONARY ARTERIAL HYPERTENSION. 4. VASCULAR CALCIFICATION. 5. SMALL HIATUS HER BEBE. Dictated and Signed by: Marbin Salvador MD Electronically signed: 07/26/2018 12:58 PM Xr Chest Ap Portable Result Date: 08/24/2018 EXAMINATION: XR CHEST AP PORTABLE HISTORY: Syncope COMPARISON STUDY: 07/24/2018 CT chest FINDINGS: The lungs are well ventilated. No pleural effusion. No pneumothorax. C ardiomediastinal silhouette is normal. Evaluation of osseous structures demonstrates no foc al abnormality. The bones appear demineralized. Atherosclerosis coronary arteries best appr eciated on prior CT study.. IMPRESSION: 1. No acute finding. 2. Atherosclerosis coronary arteries. 3. The bones appear demineralized. Dictated by: Troy Lawrence Electronically Signed by: Troy Lawrence on 019 6:43 AM Disposition: Home Follow-Up Plans: Horacio Silvestre, [address] [place] [address] In 1 week review glucose numbers and adjust as needed Fabián Carias MD [address] [facility] , [facility] [place] [address] dementia work-up Electronically signed by: Faizan Wesley 08/25/2018 9:47 CC [facility] Time spent discharging this patient: <30 minutes documented in this encounter Discharge Instructions Instructions Faizan Wesley MD - 08/25/2018 Exercise to Manage Your Blood Sugar Being physically active every day can help you manage your blood sugar. That s because an active lifestyle can improve your body s ability to use insulin. Daily activity can also help delay or prevent complications of diabetes. And it s a great way to relieve stress. I f you aren t normally active, be sure to consult your healthcare provider before getting s tarted. How much activity do you need? If daily activity is new to you, start slow and steady. Begin [id number] of activity each day. Then work up to at least 150 minutes a week of physical activity. Don't let more than 2 days go by without being active. When sitting for long periods of time, get up for sh ort sessions of light activity every 30 minutes Just move! You don t have to join a gym or own pricey sports equipment. Just get out and walk. Walki ng is an aerobic exercise that makes your heart and lungs work hard. It helps your heart and blood vessels. Walking needs only a sturdy pair of sneakers and your own two feet. The more you walk, the easier it gets: Schedule time every day to move your feet. Make it part of your daily routine. Walk with a friend or a group to keep it interesting and fun. Try taking several short walks during the day to meet your daily activity goal. A pedometer makes every step count A pedometer is a small device that keeps track of how many steps you take. You can clip it to your belt (or a strap on your arm or leg) and go about your daily routine. "Smartphones" now also have apps to record your walking.At the end of the day, the pedometer shows the t otal number of steps you took. Use a pedometer to set daily goals for yourself. For instance , if you walk4,000 steps a day, try adding 200 more steps each day. Aim for a goal of7,5 00. With every step, you re doing a little more to help your body use insulin. Adding resistance exercise Resistance exercise (also called strength training), makes muscles stronger. It also helps muscles use insulin better. Ask your healthcare provider whether this type of exercise is ri ght for you. If it is, your healthcare provider can help you work it in to your activity bibiana n. Staying safe Being active may cause blood sugar to drop faster than usual. This is especially true if yo u take medicine to manage your blood sugar. But there are things you can do to help reduce t he risk of accidental lows. Keep these tips in mind: Always carry identification when you exercise outside your home. Carry a cell phone to u se in case of emergency. If you can, include friends and family in your activities. Wear a medical ID bracelet that says you have diabetes. Use the right safety equipment for the activity you do (such as a bicycle helmet when yo u ride a bicycle outdoors). Wear closed-toed shoes that fit your feet well. Drink plenty of water before and during activity. Keep a fast-acting sugar (such as glucose tablets) on hand in case of low blood sugar. Dress properly for the weather. Wear a hat if it s matt, or wait until evening if it s too hot. Avoid being active for long periods in very hot or very cold weather. Skip activity if you re sick. Notice how activity affects blood sugar Physical activity is important when you have diabetes. But you need to keep an eye on your blood sugar level. Check often if you have been active for longer than usual, or if the acti vity was unplanned. Make it a habit to check your blood sugar before being active. And check again a few hours later. Use your log book to write down how activity affects your numbers. If you take insulin, you may be able to adjust your dose before a planned activity. This ca n help prevent lows. You may also need to take a small carbohydrate snack before the exercis e. Talk to your healthcare provider to learn more. Date Last Reviewed: 09/06/201519998796-[address] [employer] [place] [address]. All righ ts reserved. This information is not intended as a substitute for professional medical care. Always follow your healthcare professional's instructions. For Caregivers: Improving Communication with Dementia Patients Dementia makes it harder for your loved one to understand and be understood. This can be tr oubling for both of you. Remember, these problems are not your loved one s fault. They r e due to the disease. These tips can help you find ways to cope. Keep it simple The best way to talk to your loved one is using simple words and short sentences. Be sure y ou have his or her attention. Stick to one subject at a time. And use a gentle, positive ton e of voice. Timing is also important. Giving information for activities that are hours away may be a waste of time and energy. Instead of saying: It s cold outside, so be sure to put on your coat and hat. Try: Please put on your coat. Now put on your hat. Be patient People with dementia often lose their short-term memory. This means they may ask the same q uestion over and over. Although it can be frustrating, do your best to remain calm. Try rose ging the subject or getting your loved one to focus on a new task. Or, try to understand why the question is being asked. For example, your loved one may worry about missing an appoint ment or being left behind. Instead of saying: I ve already told you the appointment is at 2 o clock! Try: Don t worry. I m going with you. Use distraction Your loved one may try to do things that are inappropriate or unsafe. At these times, a goo d tactic is using distraction. Try getting your loved one to focus on something new. Your lo ronaldo one may then forget what he or she was doing in the first place. Instead of saying: What are you doing? You can t go out now! Try: Would you help me with dinner? Try statements, not questions Your loved one may not want to do certain activities. Instead of arguing, phrase requests a s statements rather than questions. Using visual cues, such as holding a towel when it s t katharina for a bath, can also help. Instead of saying: Do you want to take your bath now? Try: It s time for your bath. Let me help you get ready. Avoid arguing about reality People with dementia may not be able to separate past from present. If this happens, don t insist on your version of reality. It may be best to change the subject or play along to avoid added stress. Refrain from using harsh words or angry gestures. Your loved one ma y not understand you. But he or she can still be upset by your emotional cues. And if your l maia one becomes very upset, stay calm. Try to redirect his or her attention to another acti vity. Instead of saying: You can t call your father. He s been for years! Try: Let s look at some pictures of him. Coping with changes in behavior and personality People with dementia may have moments when they seem perfectly normal. At other times, they may act suspicious, angry, or afraid. They can also become agitated, or see things that are n t there. If this happens, try to be understanding. For them, the world can be a very str essful place. However, if these changes are sudden, severe, or create safety issues, talk to a doctor. You should also mention any signs of depression. These include withdrawal, loss o f interest in activities or food, extreme tiredness, and crying. Date Last Reviewed: 10/06/201519996585-9937 [employer]. [address] [place] [address], [place] [address]. All righ ts reserved. This information is not intended as a substitute for professional medical care. Always follow your healthcare professional's instructions. Using a Blood Sugar Log You have diabetes. This means your body has troubleregulating a sugar called glucose. To help manage your diabetes, you ll need to check your blood sugar level as directed by your healthcare provider. Keeping a log of your blood sugar levels will help you track your bloo d sugar readings. It s a simple and easy way to see how well you are controlling your diab etes. Checking your blood sugar level You can check your blood sugar level with a blood glucose meter. You ll first prick the s diogenes of your finger with a tiny lancet to draw a tiny drop of blood onto the test strip. Some glucose meters let you use another place on your body to test. But these other places shoul d not be used in some cases as they may be inaccurate. Follow the instructions for your gluc ose meter. And talk with your healthcare provider before doing the test on other places. The strip goes into the meter first, then a drop of blood is placed on the tip of the strip . The meter then shows a reading that tells you the level of your blood sugar. Your readings should be in your target range as often as possible. This means not too high or too low. St aying in this range helps lower your risk for complications. Your healthcare provider will h elp you figure out the target range that is best for you. Tracking your readings Every time you check your blood sugar, use your log to keep track of your readings. Your me ter will also probably have a memory feature that your healthcare provider can check at your next visit. You may be advised by your healthcare provider to check your blood sugar in the morning, at bedtime, and before and after meals. Be sure to write down all of your numbers. Also use your log to record things that might have affected your blood sugar. Some examples include being sick, certain medicines, being physically active, feeling stressed, or skippi ng meals. Lessons learned from your readings Tracking your blood sugar readings helps you see patterns. These patterns tell you how your actions affect your blood sugar. For instance, you may have higher numbers after eating cer tain foods or lower numbers after exercise. They just help you understand how to stay in you r target range more often, so that your diabetes remains in good control. Sharing your log with your healthcare team Bring your blood sugar log and glucose meter with you to all of your healthcare appointment s. This can help your healthcare team make changes to your treatment plan, if needed. This m ay involve making changes in what you eat, what medicines you take, or how much you exercise . To learn more The resources below can help you learn more: [place] Diabetes Cuiwfqjvibu571-838-5983tcg.diabetes.org [facility] [email or web address].lighthouse.org National Eye [id number] www.nei.nih.gov Hormone Health [email or web address] www.hormone.org Date Last Reviewed: 08/06/201519999677-[address] [employer] [place] [address], [place] [address]. All righ ts reserved. This information is [...] +---------+ + + | levothyroxine | Take 75 mcg by mouth | | 0 | | | | (SYNTHROID) 75 MCG | every morning | | | | [...] pregabalin | Take 1 capsule by | 60 | 1 | 08/15/19 | | | (LYRICA) 300 MG | [...] documented as of this encounter Progress Notes Esteban Calvillo MD - 08/24/2018 8:56 AM PDT MEDICAL HOSPITALIST TEAM PROGRESS NOTE Name:Geraldo Mcfadden Hospital Day # 1 Reason for admission and continued stay: Geraldo Mcfadden is a 78 y.o. male hospitalized for 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) Assessment and Plan: Principal Problem: Uncontrolled type 2 diabetes mellitus with hyperosmolar nonketotic hyperglycemia Active Problems: Dementia Type 2 diabetes mellitus with diabetic polyneuropathy, with long-term current use of insu gely #1 hyperosmolar nonketotic hyperglycemia. Resolved. Likely secondary to noncompliance wit h his insulin regimen. Continue current Lantus and sliding scale insulin regimen. Continue to advance diet as dot erated. The patient will need to have someone help manage his meds in the setting of progressive de mentia. #2 the patient lives at home with his , who reportedly is not comfortable taking care o f him anymore with his progressive dementia. Case management has been consulted to assist w ith appropriate disposition. #3 anticipated days until discharge and disposition: Likely medically stable for discharge in 1-2 days. Subjective/ROS: No complaints this morning. No fevers or chills. No cough or shortness of breath. No chest pain or palpitations. No nausea, vomiting, diarrhea or constipation. No bleeding. Appetite is good. He is eating. No lightheadedness or dizziness. Objective: Most recent vital signs: BP 119/52 | Pulse 62 | Temp 36.6 C (97.9 F) (Oral) | Resp (!) 63 | Ht 1.676 m (5' 6 ") | Wt 86 kg (189 lb 9.5 oz) | SpO2 99% | BMI 30.60 kg/m Vital sign ranges for last 24hrs: Input and output for last 24hrs: Temp: [36.2 C (97.2 F)-36.7 C (98.1 F)] 36.6 C (97.9 F) Pulse: [58-95] 62 Resp: [14-63] 63 BP: (105-167)/(52-106) 119/52 SpO2 Av.6 % Min: 89 % Max: 99 % Flow (L/min) Av Min: 1 Max: 1 08/22 1901 - 08/24 0700 In: 3087 [P.O.:30; I.V.:1057] Out: 800 [Urine:800] Physical Examination: General: Alert. Oriented to person place and time. Normal respiratory effort. Cardiovascular: Regular rate and rhythm. Respiratory: Clear to auscultation bilaterally. Abdomen: Bowel sounds are auscultated. Abdomen was soft, nondistended and nontender. No hepatosplenomegaly appreciated. Extremities: No cyanosis clubbing or edema. Neurological: Spontaneously moving all 4 extremities. Psychiatric: Normal mood, engaging affect. Physical Exam Last 8 glucose values: Recent Labs Lab 08/24/18 0721 08/24/18 0513 08/24/18 0405 08/24/18 0032 08/23/18 2359 08/23/18224808/23/182039 POCGLU 115* -- 238* 307* 334* -- -- GLU -- 179* -- -- -- 327* 522* Labs/Studies: Recent Labs Lab 08/23/18 2040 WBC 13.6* HGB 13.4 HCT 39.4 PLT 151 Recent Labs Lab 08/24/18 0513 08/23/18 22408/23/182039 NA 137 133 129* K 3.3 3.6 4.5 CL 103 98 92* CO2 26 25 25 BUN 20 26 29* CREA 0.88 1.13 1.41* GLU 179* 327* 522* MG -- -- 1.8 CALCIUM 8.1* 8.7 9.9 BILITOT -- -- 0.8 AST -- -- 17 ALT -- -- 47 ALKPHOS -- -- 85 ALBUMIN -- -- 3.6 Xr Chest Ap Portable Result Date: 08/24/2018 EXAMINATION: XR CHEST AP PORTABLE HISTORY: Syncope COMPARISON STUDY: 07/24/2018 CT chest FINDINGS: The lungs are well ventilated. No pleural effusion. No pneumothorax. C ardiomediastinal silhouette is normal. Evaluation of osseous structures demonstrates no foc al abnormality. The bones appear demineralized. Atherosclerosis coronary arteries best appr eciated on prior CT study.. IMPRESSION: 1. No acute finding. 2. Atherosclerosis coronary arteries. 3. The bones appear demineralized. Dictated by: Troy Lawrence Electronically Signed by: Troy Lawrence on 019 6:43 AM Electronically signed by: Esteban Calvillo 08/24/2018 8:57 CC [facility] Portions of this chart may have been created with voice recognition software. Occasional wo rd or "sound-alike" substitutions may have occurred due to the inherent limitation of voice recognition software. Read the chart carefully and recognize, using context, where these sub stitutions have occurred. Saroj Schmidt, PharmD - 08/24/2018 8:41 AM PDTMedication History Completed Medication history was completed using: -interview with patient who is a fairly reliable historian -medication list faxed from [facility] Major discrepancies noted: Patient also takes HCTZ 25mg once qam, levothyroxine 75mcg qam, and losartan 50mg qam. Patient does not take Miralax, fluticasone, nor does he use humalog. Patient doses insulin glargine at 35units qam. Patient has no history of pneumonia vaccine, but is interested in receiving if eligible. Henok rogers should receive PCV13 per protocol. Patient prefers to use [email or web address] here in [place] but [facility] [place]. Please see [facility] med list for updated medication list. Electronically Signed by: Clarence Coulter, PharmMercedes 08/24/2018 8:42 documented in this encounter Plan of Treatment [...] [place] | | | | | | [address] | | | | | | [phone] | | | | | | | | +--------+---------+ + + + | 02/26/ | Office | Urology | Lillie Fowler | | | 2018 | Visit | | LILLIE Lopez [address] | | | | [address] | | | | | | [place] | | | | | | [address] | | | | | | [phone] | | | | | | | | +--------+---------+ + + + | 03/16/ | Office | Neurology | Theresa, | | | 2018 | Visit | | SHONDA Mckinney [address] [place], | | | | | | [place] [address] | | | | | | [phone] | | | | | | | | +--------+---------+ + + + | 04/12/ | Office | Primary Care | Massimo Ramos | | | 2019 | Visit | | MD Fer [address] | | | | | | [address] [place] | | | | | | [address] | | | | | | | | +--------+---------+ + + + | 10/03/ | Office | Neurology | Fabián Carias MD | | | 2019 | Visit | | [address] | | | | | | [place] | | | | | | [address] | | | | | | | | +--------+---------+ + + + + +------+--------+ + + | Name | Type | Priori | Associated Diagnoses | Date/Time | | | | ty | | | + +------+--------+ + + | ED INFORMATION | BRIT | Routin | | 08/23/2018 8:23 PM | | EXCHANGE | | e [...] | | | care | | | Gelatin Powder Mixer-C | | | | | | | [...] | | | care | | | Gelatin Powder Mixer-C | | | | | | | [...] | | | care | | | Gelatin Powder Mixer-C | | | | | | | [...] | | | care | | | Gelatin Powder Mixer-C | | | | | | | [...] | ECG - EXTERNAL SCAN | | 08/27/2018 | | Results for this | | | | 12:00 AM | | procedure are in the | | | | PDT | | results section. | + +--------+ + + + | POC GLUCOSE | Routin | 08/25/2018 | | Results for this | | | e | 7:12 AM | | procedure are in the | | | | PDT | | results section. | + +--------+ + + + | BASIC METABOLIC | Routin | 08/25/2018 | | Results for this | | PANEL | e | 5:37 AM | | procedure are in the | | | | PDT | | results section. | + +--------+ + + + | POC GLUCOSE | Routin | 08/25/2018 | | Results for this | | | e | 4:21 AM | | procedure are in the | | | | PDT | | results section. | + +--------+ + + + | POC GLUCOSE | Routin | 08/25/2018 | | Results for this | | | e | 12:01 AM | | procedure are in the | | | | PDT | | results section. | + +--------+ + + + | ECG - EXTERNAL SCAN | | 08/25/2018 | | Results for this | | | | 12:00 AM | | procedure are in the | | | | PDT | | results section. | + +--------+ + + + | POC GLUCOSE | Routin | 08/24/2018 | | Results for this | | | e | 8:29 PM | | procedure are in the | | | | PDT | | results section. | + +--------+ + + + | POC GLUCOSE | Routin | 08/24/2018 | | Results for this | | | e | 4:32 PM | | procedure are in the | | | | PDT | | results section. | + +--------+ + + + | POC GLUCOSE | Routin | 08/24/2018 | | Results for this | | | e | 11:17 AM | | procedure are in the | | | | PDT | | results section. | + +--------+ + + + | POC GLUCOSE | Routin | 08/24/2018 | | Results for this | | | e | 7:21 AM | | procedure are in the | | | | PDT | | results section. | + +--------+ + + + | BASIC METABOLIC | Routin | 08/24/2018 | | Results for this | | PANEL | e | 5:13 AM | | procedure are in the | | | | PDT | | results section. | + +--------+ + + + | POC GLUCOSE | Routin | 08/24/2018 | | Results for this | | | e | 4:05 AM | | procedure are in the | | | | PDT | | results section. | + +--------+ + + + | POC GLUCOSE | Routin | 08/24/2018 | | Results for this | | | e | 12:32 AM | | procedure are in the | | | | PDT | | results section. | + +--------+ + + + | POC GLUCOSE | Routin | 08/23/2018 | | Results for this | | | e | 11:59 PM | | procedure are in the | | | | PDT | | results section. | + +--------+ + + + | BASIC METABOLIC | STAT | 08/23/2018 | | Results for this | | PANEL | | 10:49 PM | | procedure are in the | | | | PDT | | results section. | + +--------+ + + + | XR CHEST AP PORTABLE | STAT | 08/23/2018 | | Results for this | | | | 9:03 PM | | procedure are in the | | | | PDT | | results section. | + +--------+ + + + | URINALYSIS WITH | STAT | 08/23/2018 | | Results for this | | MICROSCOPIC WITH | | 8:54 PM | | procedure are in the | | CULTURE IF INDICATED | | PDT | | results section. | + +--------+ + + + | ECG 12 LEAD | STAT | 08/23/2018 | | Results for this | | | | 8:43 PM | | procedure are in the | | | | PDT | | results section. | + +--------+ + + + | SLIDE REVIEW, | Routin | 08/23/2018 | | Results for this | | PERIPHERAL SMEAR | e | 8:40 PM | | procedure are in the | | | | PDT | | results section. | + +--------+ + + + | TROPONIN I | STAT | 08/23/2018 | | Results for this | | | | 8:40 PM | | procedure are in the | | | | PDT | | results section. | + +--------+ + + + | CBC WITH | STAT | 08/23/2018 | | Results for this | | DIFFERENTIAL | | 8:40 PM | | procedure are in the | | | | PDT | | results section. | + +--------+ + + + | MAGNESIUM | STAT | 08/23/2018 | | Results for this | | | | 8:40 PM | | procedure are in the | | | | PDT | | results section. | + +--------+ + + + | COMPREHENSIVE | STAT | 08/23/2018 | | Results for this | | METABOLIC PANEL | | 8:40 PM | | procedure are in the | | | | PDT | | results section. | + +--------+ + + + | ED INFORMATION | Routin | 08/23/2018 | | | | EXCHANGE | e | 8:23 PM | | | | | | PDT | | | + +--------+ + + + +---+--------+ | | | | | Proced | | | ure | | | Note - | | | Louise, | | | Lab In | | | | | | Hlseve | | | n - | | | 08/23/ | | | 2019 | | | 8:24 | | | PM PDT | | [...] | | | FICATI | | | ON?05/ | | | 19/201 | | | 9 | | | 20:22? | | | MCFADDEN, | | | KENNET | | | H | | | J?MRN: | | | | | | [id number] | | | [id number] | | | riteri | | | [...] | | Hospit | | | al 12 | | | Total | | | 12 | | | Note: | | | [...] | | out | | | of 12 | | | in the | | [...] | | | today | | | Apr | | | [...] | | | re | | | Weakne | | | ss | | | Lobar | | | [...] | | | Feb | | | 6, | | | 2019 | | [...] | | | int | | | Apr | | | [...] | | | [place] | | | Residency Program Coordinator | | | al | | | [...] | | | [place] | | | Residency Program Coordinator | | | al | | | [...] | | | [place] | | | Residency Program Coordinator | | | al | | | [...] | | | [place] | | | Residency Program Coordinator | | | al | | | [...] | | | [id number]/e5 | | | [id number] | | | -[id number] | | | [id number] | | | [id number] | | | [id number] | | | ee58 | | | PLEASE | | | [...] [email or web address] | | | m | +---+--------+ documented in this encounter Results ECG - EXTERNAL SCAN (08/27/2018 12:00 AM PDT) + + + | Narrative | Performed At | + + + | Ordered by an | | | unspecified provider. | | + + + POC Glucose (08/25/2018 7:12 AM PDT) + +---------+ + + + | Component | Value | Ref Range | Performed | Pathologist | | | | | At | Signature | + +---------+ + + + | Glucose, | 164 (H) | 70 - 110 mg/dL | [...] + + | [facility] | [address] | [place] [address] | [phone] | | [facility] | | | | + + + + + Basic Metabolic Panel (08/25/2018 5:37 AM PDT) + +---------+ + + + | Component | Value | Ref Range | Performed | Pathologist | | | | | At | Signature | + +---------+ + + + | Na | 139 | 132 - 143 | [facility] | [...] +---------+ + + + | Cl | 105 | 95 - 108 mmol/L | [facility] | | | [facility] | | + +---------+ + + + | CO2 | 25 [...] +---------+ + + + | Glucose | 147 (H) | 70 - 110 mg/dL | [facility] | | [facility] | | + +---------+ + + + | BUN | 15 | 5 - 26 mg/dL | [facility] | | [facility] | | + +---------+ + + + | Creatinine | 0.87 | 0.70 - 1.40 | [facility] | | | | | mg/dL | [facility] | | | | | | [facility] | | + +---------+ + + + | eGFR if not | >60 | >=60 | [facility] | | | | | mL/min/1.73m2 | [facility] | | | | | | [facility] | | + +---------+ + + + | Calcium | 8.3 | 8.3 - 10.0 | [facility] | | | | | mg/dL | [facility] | | | | | | [facility] | | + +---------+ + + + | BUN/Creatin | 17.2 | 7.0 - 24.0 | [facility] | [...] + + | [facility] | [address] | [place] [address] | [phone] | | [facility] | | | | + + + + + POC Glucose (08/25/2018 4:21 AM PDT) + +---------+ + + + | Component | Value | Ref Range | Performed | Pathologist | | | | | At | Signature | + +---------+ + + + | Glucose, | 150 (H) | 70 - 110 mg/dL | [...] + + | [facility] | [address] | [place] [address] | [phone] | | [facility] | | | | + + + + + POC Glucose (08/25/2018 12:01 AM PDT) + +---------+ + + + | Component | Value | Ref Range | Performed | Pathologist | | | | | At | Signature | + +---------+ + + + | Glucose, | 225 (H) | 70 - 110 mg/dL | [...] + + | [facility] | [address] | [place] [address] | [phone] | | [facility] | | | | + + + + + ECG - EXTERNAL SCAN (08/25/2018 12:00 AM PDT) + + + | Narrative | Performed At | + + + | Ordered by an | | | unspecified provider. | | + + + POC Glucose (08/24/2018 8:29 PM PDT) + +---------+ + + + | Component | Value | Ref Range | Performed | Pathologist | | | | | At | Signature | + +---------+ + + + | Glucose, | 249 (H) | 70 - 110 mg/dL | [...] + + | [facility] | [address] | [place] [address] | [phone] | | [facility] | | | | + + + + + POC Glucose (08/24/2018 4:32 PM PDT) + +---------+ + + + | Component | Value | Ref Range | Performed | Pathologist | | | | | At | Signature | + +---------+ + + + | Glucose, | 215 (H) | 70 - 110 mg/dL | [...] + + | [facility] | [address] | [place] [address] | [phone] | | [facility] | | | | + + + + + POC Glucose (08/24/2018 11:17 AM PDT) + +---------+ + + + | Component | Value | Ref Range | Performed | Pathologist | | | | | At | Signature | + +---------+ + + + | Glucose, | 170 (H) | 70 - 110 [...] + + | [facility] | [address] | [place] [address] | [phone] | | [facility] | | | | + + + + + POC Glucose (08/24/2018 7:21 AM PDT) + +---------+ + + + [...] + + | [facility] | [address] | [place] [address] | [phone] | | [facility] | | | | + + + + + Basic Metabolic Panel (08/24/2018 5:13 AM PDT) + +---------+ + + + | Component | Value | Ref Range | Performed | Pathologist | | | | | At | Signature | + +---------+ + + + | Na | 137 | 132 - 143 | [facility] | | | | mmol/L | [facility] | | | | | [facility] | | + +---------+ + + + | K | 3.3 | 3.3 - 4.9 | [facility] | | | | | mmol/L | [facility] | | | | | [facility] | | + +---------+ + + + | Cl | 103 | 95 - 108 mmol/L | [facility] | | | | [facility] | | + +---------+ + + + | CO2 | 26 [...] +---------+ + + + | Glucose | 179 (H) | 70 - 110 mg/dL | [facility] | [facility] | | | | [facility] | | + +---------+ + + + | BUN | 20 | 5 - 26 mg/dL | [facility] | | | | [facility] | | + +---------+ + + + | Creatinine | 0.88 | 0.70 - 1.40 | [facility] | | | | | mg/dL | [facility] | | | | | [facility] | | + +---------+ + + + | eGFR if not | >60 | >=60 | [facility] | | | | | mL/min/1.73m2 | [facility] | | | | | | [facility] | | + +---------+ + + + | Calcium | 8.1 (L) | 8.3 - 10.0 | [facility] | | | | | mg/dL | [facility] | | | | | | [facility] | | + +---------+ + + + | BUN/Creatin | 22.7 | 7.0 - 24.0 | [facility] | [...] + + | [facility] | [address] | [place] [address] | [phone] | | [facility] | | | | + + + + + POC Glucose (08/24/2018 4:05 AM PDT) + +---------+ + + + | Component | Value | Ref Range | Performed | Pathologist | | | | | At | Signature | + +---------+ + + + | Glucose, | 238 (H) | 70 - 110 mg/dL | [...] + + | [facility] | [address] | [place] [address] | [phone] | | [facility] | | | | + + + + + POC Glucose (08/24/2018 12:32 AM PDT) + +---------+ + + + | Component | Value | Ref Range | Performed | Pathologist | | | | | At | Signature | + +---------+ + + + | Glucose, | 307 (H) | 70 - 110 mg/dL | [...] + + | [facility] | [address] | [place] [address] | [phone] | | [facility] | | | | + + + + + POC Glucose (08/23/2018 11:59 PM PDT) + +---------+ + + + | Component | Value | Ref Range | Performed | Pathologist | | | | | At | Signature | + +---------+ + + + | Glucose, | 334 (H) | 70 - 110 mg/dL | [...] + + | [facility] | [address] | [place] [address] | [phone] | | [facility] | | | | + + + + + Basic Metabolic Panel (08/23/2018 10:49 PM PDT) + +---------+ + + + | Component | Value | Ref Range | Performed | Pathologist | | | | | At | Signature | + +---------+ + + + | Na | 133 | 132 - 143 | [facility] | | | | mmol/L | [facility] | | | | | [facility] | | + +---------+ + + + | K | 3.6 | 3.3 - 4.9 | [facility] | | | | | mmol/L | [facility] | | | | | | [facility] | | + +---------+ + + + | Cl | 98 | 95 - 108 mmol/L | [facility] | [facility] | | | | [facility] | | + +---------+ + + + | CO2 | 25 [...] +---------+ + + + | Glucose | 327 (H) | 70 - 110 mg/dL | [facility] | [facility] | | | | [facility] | | + +---------+ + + + | BUN | 26 | 5 - 26 mg/dL | [facility] | | | | | [facility] | | + +---------+ + + + | Creatinine | 1.13 | 0.70 - 1.40 | [facility] | | | | | mg/dL | [facility] | | | | | [facility] | | + +---------+ + + + | eGFR if not | >60 | >=60 | [facility] | | | | | mL/min/1.73m2 | [facility] | | | | | | [facility] | | + +---------+ + + + | Calcium | 8.7 | 8.3 - 10.0 | [facility] | | | | | mg/dL | [facility] | | | | | | [facility] | | + +---------+ + + + | BUN/Creatin | 23.0 | 7.0 - 24.0 | [facility] | | | ine Ratio | | [...] + + | [facility] | [address] | [place] [address] | [phone] | | [facility] | | | | + + + + + XR Chest AP Portable (08/23/2018 9:03 PM PDT) + + | Specimen | + + | | + + + + + | Impressions | Performed At | + + + | IMPRESSION: 1. No acute finding. 2. Atherosclerosis coronary | [facility] | | arteries. 3. The bones appear demineralized. Dictated by: | | | Troy Lawrence Electronically Signed by: Troy Lawrence on | | | 08/24/2018 6:43 AM | | + + + + + + | Narrative | Performed At | + + + | EXAMINATION: XR CHEST AP PORTABLE HISTORY: Syncope | [facility] | | COMPARISON STUDY: 07/24/2018 CT chest 06/04/2018 FINDINGS: The | | | lungs are well ventilated. No pleural effusion. No pneumothorax. | | | Cardiomediastinal silhouette is normal. Evaluation of osseous | | | structures demonstrates no focal abnormality. The bones appear | | | demineralized. Atherosclerosis coronary arteries best appreciated | | | on prior CT study.. | | + + + + + | Procedure Note | + + | Louise, Rad Results In - 08/24/2018 6:46 AM PDT EXAMINATION:XR CHEST AP | | PORTABLEHISTORY:SyncopeCOMPARISON STUDY:07/24/2018 CT chest 06/04/2018FINDINGS:The lungs | | are well ventilated. No pleural effusion. No pneumothorax. Cardiomediastinal | | silhouette is normal. Evaluation of osseous structures demonstrates no focal | | abnormality. The bones appear demineralized. Atherosclerosis coronary arteries best | | appreciated on prior CT study..IMPRESSION: IMPRESSION:1. No acute finding.2. | | Atherosclerosis coronary arteries.3. The bones appear demineralized.Dictated by: Troy | | Howard | | | |FINDINGS: | |The lungs are well ventilated. No pleural effusion. No pneumothorax. Cardiomediastinal s ilhouette is normal. Evaluation of osseous structures demonstrates no focal abnormality. Th e bones appear demineralized. | |Atherosclerosis coronary arteries best | |appreciated on prior CT study.. | | | |IMPRESSION: | |IMPRESSION: | |1. No acute finding. | |2. Atherosclerosis coronary arteries. | |3. The bones appear demineralized. | | | | | |Dictated by: Troy Lawrence | | | | | + + + +---------+ + + | Performing | Address | City/State/Zipcode | Phone Number | | Organization | | | | + +---------+ + + | [facility] | | | | + +---------+ + + Urinalysis with Microscopic with Culture if Indicated (08/23/2018 8:54 PM PDT) + + + + + [...] - 1.030 | [facility] | | | [facility] | | | [facility] | | | [...] + + | [facility] | [address] | [place] [address] | [phone] | | [facility] | | | | + + + + + ECG 12 lead (08/23/2018 8:43 PM PDT) + + | Specimen | + + | | + + + + + | Narrative | Performed At | + + + | Heart Rate: 83 | [facility] | | bpmQRS Interval: 88 msQT Interval: 344 msQTC Interval: 405 msP [place]: | [facility] | | 3 degQRS [place]: -25 degT Wave [place]: 7 degP-R Interval: 180 msec- | | | OTHERWISE NORMAL ECG -SINUS RHYTHM [Now Present]BORDERLINE LEFT AXIS | | | DEVIATION [Remains]EARLY PRECORDIAL R/S TRANSITION [Now | | | Present]SIGNIFICANT RHYTHM CHANGES[Now Absent] SINUS TACHYCARDIA | | |T Wave [place]: 7 deg | | |P-R Interval: 180 msec | | |- OTHERWISE NORMAL ECG - | | |SINUS RHYTHM [Now Present] | | |BORDERLINE LEFT AXIS DEVIATION [Remains] | | |EARLY PRECORDIAL R/S TRANSITION [Now Present] | | |SIGNIFICANT RHYTHM CHANGES | | |[Now Absent] SINUS TACHYCARDIA | | + + + + +---------+ + + | Performing | Address | City/State/Zipcode | Phone Number | | Organization | | | | + +---------+ + + | [facility] | | | | + +---------+ + + Magnesium (08/23/2018 8:40 PM PDT) + +-------+ + + + | Component | Value | Ref Range | Performed | Pathologist | | | | | At | Signature | + +-------+ + + + | Magnesium | 1.8 | 1.8 - 2.4 mg/dL | [facility] [...] + + | [facility] | [address] | [place] [address] | [phone] | | [facility] | | | | + + + + + Slide Review, Peripheral Smear (08/23/2018 8:40 PM PDT) + +--------+ + + + | Component | Value | Ref Range | Performed | Pathologist | | | | | At | Signature | + +--------+ + + + | RBC | Normal | | [facility] | | | Morphology | | | [facility] | | | | | | [facility] | | + +--------+ + + + | WBC | Normal | | [facility] | | | Morphology | | | [facility] | | | | | | [facility] | | + +--------+ + + + | Platelet | Normal [...] + + | [facility] | [address] | [place] [address] | [phone] | | [facility] | | | | + + + + + Troponin I (08/23/2018 8:40 PM PDT) + +-------+ + + + [...] | cutoff point for the diagnosis of [place] is 0.8 ng/mL for the Troponin I | | | method. | | + + + + + + + + | Performing | Address | City/State/Zipcode | Phone Number | | Organization | | | | + + + + + | [facility] | [address] | [place] [address] | [phone] | | [facility] | | | | + + + + + Comprehensive Metabolic Panel (08/23/2018 8:40 PM PDT) + + + + + + | Component | Value | Ref Range | Performed | Pathologist | | | | | At | Signature | + + + + + + | Na | 129 (L) | 132 - 143 | [facility] | | | | | mmol/L | [facility] | [facility] | | | | | | [facility] | | + + + + + + | K | 4.5 | 3.3 - 4.9 | [facility] | | | | | mmol/L | [facility] | | | | | | [facility] | | + + + + + + | Cl | 92 (L) | 95 - 108 mmol/L | [facility] [...] Gap | 12 | 7 - 16 mmol/L | [facility] | | | | | | [facility] | | | | | | [facility] | | + + + + + + | Glucose | 522 (HH) | 70 - 110 mg/dL | [facility] | | | | [facility] | | | | | | [facility] | | + + + + + + | BUN | 29 (H) | 5 - 26 mg/dL | [facility] | | | | [facility] | | | | | | [facility] | | + + + + + + | Creatinine | 1.41 (H) | 0.70 - 1.40 | [facility] | | | | | mg/dL | [facility] | | | | | | [facility]ORY | | + + + + + + | eGFR if not | 48 (L)Comment: | >=60 | [facility] | | | | GLOMERULAR FILTRATION | mL/min/1.73m2 | [facility] | | | [facility] | R[facility]ESTIMATED | | [facility] | | | | mL/min/1.45a6Ljrx than | | LABORATORY | | | [...] + + + + | Calcium | 9.9 | 8.3 - 10.0 | [facility] | [...] + + + + | Total | 7.7 | 6.6 - 8.5 g/dL | [facility] | | | Protein | | | [facility] | | | | | | [facility]ORY | | + + + + + + | AST | 17 | 0 - 38 U/L | [facility] | | | | [facility] | | | | | | [facility] | | + + + + + + | ALT | 47 | 16 - 63 U/L | [facility] | | [facility] | | | | | | [facility] | | + + + + + + | Alkaline | 85 | 46 - 116 U/L | [facility] | | | Phosphatase | | | [facility] | | | | | | [facility]ORY | | + + + + + + | Globulin | 4.1 | 2.4 - 4.5 g/dL | [facility] [...] + + + + | BUN/Creatin | 20.6 | 7.0 - 24.0 | [facility] | [...] + + | [facility] | [address] | [place] [address] | [phone] | | [facility] | | | | + + + + + CBC with Differential (08/23/2018 8:40 PM PDT) + + + + + + | Component | Value | Ref Range | Performed | Pathologist | | | | | At | Signature | + + + + + + | WBC | 13.6 (H) | 4.6 - 10.5 K/uL | [facility] | | [facility] | | + + + + + + | RBC | 4.48 | 4.36 - 5.83 | [facility] | [...] + + + + | Hematocrit | 39.4 | 39.0 - 51.9 % | [facility] | | [facility] | | + + + + + + | MCV | 87.9 | 82.0 - 96.0 fL | [facility] | | [facility] | | + + + + + + | MCH | 29.9 | 27.7 - 32.3 pg | [facility] | | | | [facility] | | + + + + + + | MCHC | 34.0 | 32.0 - 36.9 | [facility] | [...] + + + + | Platelet | 151 | 150 - 450 K/uL | [facility] | | | Count | | | [facility] | | | | | | [facility] | | + + + + + + | MPV | 11.5 | 9.4 - 12.4 fL | [facility] | [facility] | [facility] | | + + + + + + | % | 62.7 | 42.0 - 76.0 % | [facility] | | | Neutrophils | | | [facility] | | | | | | [facility] | | + + + + + + | % | 17.6 (L) | 20.0 - 40.0 % | [facility] | | | Lymphocytes | | | [facility] | | | | | | [facility] | | + + + + + + | % Monocytes | 13.5 (H) | 3.0 - 13.0 % | [facility] | | | | | [facility] | | + + + + + + | % | 3.7 | 0.0 - 7.0 % | [facility] | | | Eosinophils | | | [facility] | | | | | | [facility] | | + + + + + + | % Basophils | 0.7 | 0.0 - 2.0 % | [facility] | | | | | | [facility] | | + + + + + + | % Immature | 1.8 (H) | 0.0 - 0.5 % | [facility] | | | Granulocyte | | | [facility] | | [facility] | | | | | | [facility]ATORY | | + + + + + + | Absolute | 8.56 (H) | 2.80 - 7.70 | [facility] | | | Neutrophils | | K/uL | [facility] | | | | | | [facility] | | + + + + + + | Absolute | 2.40 | 1.20 - 3.30 | [facility] | | | Lymphocytes | | K/uL | [facility] | | | | | | [facility] | | + + + + + + | Absolute | 1.84 (H) | 0.00 - 0.80 | [facility] | | | Monocytes | | K/uL | [facility] | | | | | | [facility] | | + + + + + + | Absolute | 0.50 | 0.00 - 0.70 | [facility] | | | Eosinophils | | K/uL | [facility] | | | | | | [facility] | | + + + + + + | Absolute | 0.10 | 0.00 - 0.20 | [facility] | | | Basophils | | K/uL | [facility] | | | | | | [facility] | | + + + + + + | Absolute | 0.24 (H) | 0.00 - 0.15 | [facility] [...] + + + | Absolute | 0.05 (H) | 0.00 - 0.01 | [facility] | [...] + + | [facility] | [address] | [place] [address] | [phone] | | [facility] | | | | + + + + + documented in this encounter Visit Diagnoses + + | Diagnosis | + + | 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) | | - Primary Type II or unspecified type diabetes mellitus with hyperosmolarity, | | uncontrolled | + + | Hyperosmolar syndrome Hyperosmolality and/or hypernatremia | + + | Dehydration | + + | Hyperglycemia Other abnormal glucose | + + | Type 2 diabetes mellitus with complication, with long-term current use of insulin | | (HCC) | + + | 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) | + + documented in this encounter Administered Medications + +--------+ +-------+------+------+ | Medication Order | MAR | Action | Dose | Rate | Site | | | Action | Date | | | | + +--------+ +-------+------+------+ | amLODIPine (NORVASC) tablet 10 | Given | 08/26/19 | 10 mg | | | | mg 10 mg, Oral, DAILY, First | | 19 8:37 | | | | | dose on Fri08/24/18 at 0900 | | AM PDT | | | | + +--------+ +-------+------+------+ +-------+ +-------+---+---+ | Given | 08/25/19 | 10 mg | | | | | 19 9:04 | | | | | | AM PDT | | | | +-------+ +-------+---+---+ +---+---+ | | | +---+---+ + +-------+ +--------+---+---+ | aspirin EC tablet 325 mg 325 | Given | 08/26/19 | 325 mg | | | | mg, Oral, DAILY, First dose on | | 19 8:37 | | | | | 08/24/18 at 0900 | | AM PDT | | | | + +-------+ +--------+---+---+ +-------+ +--------+---+---+ | Given | 08/25/19 | 325 mg | | | | | 19 9:05 | | | | | | AM PDT | | | | +-------+ +--------+---+---+ +---+---+ | | | +---+---+ + +-------+ +-------+---+---+ | atorvaSTATin (LIPITOR) tablet | Given | 08/26/19 | 10 mg | | | | 10 mg 10 mg, Oral, EVERY | | 19 8:37 | | | | | MORNING, First dose on Mon | | AM PDT | | | | | 08/24/18 at 0900 | | | | | | + +-------+ +-------+---+---+ +-------+ +-------+---+---+ | Given | 08/25/19 | 10 mg | | | | | 19 9:05 | | | | | | AM PDT | | | | +-------+ +-------+---+---+ +---+---+ | | | +---+---+ + +-------+ +--------+---+---+ | cholecalciferol (VITAMIN D-3) | Given | 08/26/19 | 2,000 | | | | tablet 2,000 Units 2,000 Units, | | 19 8:37 | Units | | | | Oral, EVERY MORNING, First dose | | AM PDT | | | | | on 08/24/18 at 0900 | | | | | | + +-------+ +--------+---+---+ +-------+ +--------+---+---+ | Given | 08/25/19 | 2,000 | | | | | 19 9:04 | Units | | | | | AM PDT | | | | +-------+ +--------+---+---+ +---+---+ | | | +---+---+ + +-------+ +-------+---+---+ | clopidogrel (PLAVIX) tablet 75 | Given | 08/26/19 | 75 mg | | | | mg 75 mg, Oral, EVERY MORNING, | | 19 8:37 | | | | | First dose on Fri08/24/18 at 0900 | | AM PDT | | | | + +-------+ +-------+---+---+ +-------+ +-------+---+---+ | Given | 08/25/19 | 75 mg | | | | | 19 9:04 | | | | | | AM PDT | | | | +-------+ +-------+---+---+ +---+---+ | | | +---+---+ + +-------+ +--------+---+---+ | cyanocobalamin (VITAMIN B-12) | Given | 08/26/19 | 1,000 | | | | tablet 1,000 mcg 1,000 mcg, | | 19 8:36 | mcg | | | | Oral, EVERY MORNING, First dose | | AM PDT | | | | | on 08/24/18 at 0900 | | | | | | + +-------+ +--------+---+---+ +-------+ +--------+---+---+ | Given | 08/25/19 | 1,000 | | | | | 19 9:10 | mcg | | | | | AM PDT | | | | +-------+ +--------+---+---+ +---+---+ | | | +---+---+ + +-------+ +-------+---+---+ | DULoxetine (CYMBALTA) DR | Given | 08/26/19 | 60 mg | | | | capsule 60 mg 60 mg, Oral, EVERY | | 19 8:37 | | | | | MORNING, First dose on Mon | | AM PDT | | | | | 08/24/18 at 0900, Do not open | | | | | | | capsule., | | | | | | + +-------+ +-------+---+---+ +-------+ +-------+---+---+ | Given | 08/25/19 | 60 mg | | | | | 19 9:05 | | | | | | AM PDT | | | | +-------+ +-------+---+---+ +---+---+ | | | +---+---+ + +-------+ +-------+---+ + | enoxaparin (LOVENOX) 40 mg/0.4 | Given | 08/26/19 | 40 mg | | Abdomen- | | mL injection 40 mg 40 mg, | | 19 8:36 | | | RLQ | | Subcutaneous, EVERY 24 HOURS | | AM PDT | | | | | (Daily), First dose on Mon | | | | | | | 08/24/18 at 0900 | | | | | | + +-------+ +-------+---+ + +-------+ +-------+---+ + | Given | 08/25/19 | 40 mg | | Abdomen- | | | 19 9:04 | | | RLQ | | | AM PDT | | | | +-------+ +-------+---+ + +---+---+ | | | +---+---+ + +-------+ + +---+ + | fluticasone (FLONASE) 50 | Given | 08/25/19 | 2 sprays | | Nare-Bot | | mcg/nasal spray 2 spray 2 spray, | | 19 9:10 | | | h | | Nasal, NIGHTLY PRN, Allergies, | | AM PDT | | | | | Starting Fri08/24/18 at 0007, | | | | | | | Shake gently., | | | | | | + +-------+ + +---+ + +---+---+ | | | +---+---+ + +-------+ + +---+ + | insulin glargine (LANTUS) | Given | 08/25/19 | 18 Units | | Arm-Righ | | injection (vial) 18 Units 18 | | 19 8:54 | | | t Upper | | Units, Subcutaneous, NIGHTLY, | | PM PDT | | | | | First dose on Fri08/24/18 at | | | | | | | 0030, For subcutaneous use only. | | | | | | | Basal (long acting) insulin. Only | | | | | | | for use with U-100 insulin | | | | | | | syringe., If NPO: Decrease dose, | | | | | | | by: 25% | | | | | | + +-------+ + +---+ + +-------+ + +---+ + | Given | 08/25/19 | 18 Units | | Arm-Left | | | 19 12:53 | | | Upper | | | AM PDT | | | | +-------+ + +---+ + +---+---+ | | | +---+---+ + +-------+ +---------+---+ + | insulin lispro (humaLOG) | Given | 08/26/19 | 2 Units | | Abdomen- | | injection (vial) 0-12 Units 0-12 | | 19 8:36 | | | RLQ | | Units, Subcutaneous, EVERY 4 | | AM PDT | | | | | HOURS (6 times per day), First | | | | | | | dose on Fri08/24/18 at 0030, | | | | | | | CORRECTION SCALE: Blood Glucose | | | | | | | (BG) < 150: None | | | | | | | BG 150-200: DAY: 2 units. | | | | | | | NIGHT: 0 units BG 201-250: DAY: | | | | | | | 4 units. NIGHT: 2 units BG | | [...] | | | | | | | 6418-9314 Use NIGHT DOSE for | | | | | | | doses scheduled: HS, 3AM, | | | | | | | Nighttime 5624-4790 If the BG is | | | | | | | not checked before the patient | | | | | | | starts eating, do not give | | | | | | | correction insulin. If HS insulin | | | | | | | given, check blood glucose at | | | | | | | 3AM. Only for use with U-100 | | | | | | | insulin syringe., | | | | | | + +-------+ +---------+---+ + +-------+ +---------+---+ + | Given | 08/26/19 | 2 Units | | Arm-Left | | | 19 12:04 | | | Upper | | | AM PDT | | | | +-------+ +---------+---+ + | Given | 08/25/19 | 2 Units | | Arm-Righ | | | 19 8:52 | | | t Upper | | | PM PDT | | | | +-------+ +---------+---+ + +---+---+ | | | +---+---+ + +-------+ +--------+---+---+ | levothyroxine (SYNTHROID) | Given | 08/26/19 | 75 mcg | | | | tablet 75 mcg 75 mcg, Oral, | | 19 6:40 | | | | | DAILY BEFORE BREAKFAST, First | | AM PDT | | | | | dose on 08/24/18 at 1100, Give | | | | | | | before breakfast., | | | | | | + +-------+ +--------+---+---+ +-------+ +--------+---+---+ | Given | 08/25/19 | 75 mcg | | | | | 19 11:15 | | | | | | AM PDT | | | | +-------+ +--------+---+---+ +---+---+ | | | +---+---+ + +-------+ +-------+---+---+ | losartan (COZAAR) tablet 50 mg | Given | 08/26/19 | 50 mg | | | | 50 mg, Oral, EVERY MORNING, | | 19 8:37 | | | | | First dose on Fri08/24/18 at 1100 | | AM PDT | | | | + +-------+ +-------+---+---+ +---+---+ | | | +---+---+ + +-------+ +-------+---+---+ | pantoprazole (PROTONIX) DR | Given | 08/26/19 | 40 mg | | | | tablet 40 mg 40 mg, Oral, DAILY | | 19 6:40 | | | | | BEFORE BREAKFAST, First dose on | | AM PDT | | | | | Fri08/24/18 at 0730, Indication: | | | | | | | GERD | | | | | | + +-------+ +-------+---+---+ +-------+ +-------+---+---+ | Given | 08/25/19 | 40 mg | | | | | 19 7:33 | | | | | | AM PDT | | | | +-------+ +-------+---+---+ +---+---+ | | | +---+---+ + +-------+ +---------+---+ + | pneumococcal (PREVNAR 13) | Given | 08/25/19 | 0.5 mLs | | Deltoid- | | vaccine injection 0.5 mL 0.5 mL, | | 19 2:25 | | | Left | | Intramuscular, [employer] PREPARATION ANALYST, Starting | | PM PDT | | | | | 08/24/18 at 0851, For 1 dose, | | | | | | | Keep in refrigerator. Give | | | | | | | patient education information., | | | | | | + +-------+ +---------+---+ + +---+---+ | | | +---+---+ + +---------+ +--------+-------+---+ | potassium chloride 40 mEq in | New Bag | 08/25/19 | 40 mEq | 130 | | | sodium chloride 0.9% 500 mL IVPB | | 19 11:14 | | mL/hr | | | 40 mEq, Intravenous, Administer | | AM PDT | | | | | over 4 Hours, ONCE, 08/24/18 | | | | | | | at 1100, For 1 dose | | | | | | + +---------+ +--------+-------+---+ +---+---+ | | | +---+---+ + +-------+ +--------+---+---+ | pregabalin (LYRICA) capsule 300 | Given | 08/26/19 | 300 mg | | | | mg 300 mg, Oral, 2 TIMES DAILY, | | 19 8:36 | | | | | First dose on 08/24/18 at | | AM PDT | | | | | 0030 | | | | | | + +-------+ +--------+---+---+ +-------+ +--------+---+---+ | Given | 08/25/19 | 300 mg | | | | | 19 9:01 | | | | | | PM PDT | | | | +-------+ +--------+---+---+ | Given | 08/25/19 | 300 mg | | | | | 19 9:06 | | | | | | AM PDT | | | | +-------+ +--------+---+---+ +---+---+ | | | +---+---+ + +---------+ +--------+-------+---+ | sodium chloride 0.9% (NS) bolus | New Bag | 08/24/19 | 1,000 | 2000 | | | 1,000 mL 1,000 mL, Intravenous, | | 19 9:14 | mLs | mL/hr | | | Administer over 30 Minutes, | | PM PDT | | | | | ONCE, 08/23/18 at 2130, For 1 | | | | | | | dose | | | | | | + +---------+ +--------+-------+---+ +---+---+ | | | +---+---+ + +---------+ +--------+-------+---+ | sodium chloride 0.9% (NS) bolus | New Bag | 08/24/19 | 1,000 | 1000 | | | 1,000 mL 1,000 mL, Intravenous, | | 19 9:48 | mLs | mL/hr | | | Administer over 1 Hours, ONCE, | | PM PDT | | | | | 08/23/18 at 2215, For 1 dose | | | | | | + +---------+ +--------+-------+---+ +---+---+ | | | +---+---+ + +---------+ +--------+-------+---+ | sodium chloride 0.9% (NS) | New Bag | 08/25/19 | 1,000 | 200 | | | infusion at 200 mL/hr, | | 19 5:19 | mLs | mL/hr | | | Intravenous, CONTINUOUS, Starting | | AM PDT | | | | | 08/24/18 at 0030 | | | | | | + +---------+ +--------+-------+---+ +---------+ +---------+-------+---+ | New Bag | 08/25/19 | 200 mLs | 200 | | | | 19 12:24 | | mL/hr | | | | AM PDT | | | | +---------+ +---------+-------+---+ +---+---+ | | | +---+---+ + +-------+ +--------+---+---+ | tamsulosin (FLOMAX) capsule 0.4 | Given | 08/25/19 | 0.4 mg | | | | mg 0.4 mg, Oral, NIGHTLY, First | | 19 9:01 | | | | | dose on 08/24/18 at 0030, May | | PM PDT | | [...] +-------+ +--------+---+---+ +-------+ +--------+---+---+ | Given | 08/25/19 | 0.4 mg | | | | | 19 12:46 | | | | | | AM [...]
--- OUTSIDE RECORDS SUMMARY | ~2019-02-17 | XMS | Encounter Summary ---
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 He [facility] on 03/13/10 complaining of abdominal pain [...] the ab ove outlined medication followup regimen. [facility] Signed and Approved by: ESTEBAN CALVILLO [...] [place] | | | | | | [address] | | | | | | [phone] | | | | | | | | +--------+---------+ + + + | 02/26/ | Office | Urology | Lillie Fowler | | | 2018 | Visit | | LILLIE [address] | | | | | | [address] | | | | | | [place], [place] | | | | | | [address] | | | | | | [phone] | | | | | | | | +--------+---------+ + + + | 03/16/ | Office | Neurology | Theresa, | | | 2018 | Visit | | SHONDA Mckinney [address] | [address] [place], | | | | | | [place] [address] | | | | | | [phone] | | | | | | | [...] [place] | | | | | | [address] | | | | | | | [...] | | | care | | | Visualization Developer-C | | | | | | | [...] | | | care | | | Visualization Developer-C | | | | | | | [...] | | | care | | | Visualization Developer-C | | | | | | | [...] | | | care | | | Visualization Developer-C | | | | | | | linical | + +--------+ +---+-----+ + + + | Note: Pt will | | check CBG's daily x1 | | Pt will take Lantis as | | prescribed | + + documented as of this encounter Visit Diagnoses Not on filedocumented in this encounter"
--- OUTSIDE RECORDS SUMMARY | ~2019-02-17 | XMS | Encounter Summary ---
Demographics + + + | Address | [address] | | | [place] [address] | + + + | Home Phone | | + + + | Preferred Language | Unknown | + + + | Marital Status | | + + + | Congregation Affiliation | 1025 | + + + | Race | Unknown | + + + | Ethnic Group | Unknown | + + + Author + + + | Author | [facility] | | | and [place] | + + + | Organization | [facility] | | [...] Team Providers + +------+ + | Care Metal Base Blocker Name | Role | Phone | [...] | | | | | | | Falls | | | | | | | frequently | | | | | | | Generalized | | | | | | | weakness | | | +--------+--------+ + + + + Encounter Details +--------+ + + + + | Date | Type | Department | Care Team | Description | +--------+ + + + + | 11/02/ | Emergency | [facility] | [facility] | Generalized weakness | | 2019 - | | [facility] | MD [address] | (Primary Dx); Falls | | | | [address] [place] | [facility] | frequently; TIA | | 11/04/ | | [place] [place] | [place] [address] | (transient ischemic | | 2019 | | [id number] | [phone] | attack) | | | | [phone] | | | | | | | Jalyn Carias MD | | | | | | [address] | | | | | | [place] | | | | | | [address] | | | | | | | [...] + + + | Blood Pressure | 140/69 | 11/04/2018 8:41 AM | | | | | PDT | | + + + + + | Pulse | 97 | 11/04/2018 8:41 AM | | | | | PDT | | + + + + + | Temperature | 36.8 C (98.24 F) | 11/04/2018 8:41 AM | | | | | PDT | | + + + + + | Respiratory Rate | 20 | 11/04/2018 8:41 AM | | | | | PDT | | + + + + + | Oxygen Saturation | 93% | 11/04/2018 8:41 AM | | | | | PDT | | + + + + + | Inhaled Oxygen | - | - | | | Concentration | | | | + + + + + | Weight | 92.3 kg (203 lb 7.8 | 11/04/2018 8:40 AM | | | | oz) | PDT | | + + + + + | Height | 167.6 cm (5' 6") | 11/02/2018 12:37 PM | | | | | PDT | | + + + + + | Body Mass Index | 32.84 | 11/02/2018 12:37 PM | | | | | PDT [...] encounter Discharge Summaries Jalyn Carias MD - 11/04/2018 4:26 PM PDT Physician Discharge Summary Patient ID: Geraldo Mcfadden [id number] 78 y.o. 1940 Admit date: 11/02/2018 Discharge date and time: 11/04/2018 13:05 Admitting Physician: Jalyn Carias MD Discharge Physician: Jalyn Carias M.D. Admission Diagnoses: Falls frequently [R29.6] Generalized weakness [R53.1] Discharge Diagnoses: Status post CVA, right parietal lobe, right MCA, thrombotic, nondominant hemisphere, critical access hospital ed, presenting with recurrent falls with gait ataxia and resolve mild right sided weakness Diabetic polyneuropathy, as evidenced by impaired sensory modalities and reflexes Gait disorder, multifactorial Hypertension Query right lower lobe pneumonia likely atelectasis as per hospitalist, Dr. Calvillo Admission Condition: fair Discharged Condition: good Indication for Admission: Recurrent falls with evidence of acute CVA on MRI Hospital Course: Mr. Mcfadden was an 78-year-old right-handed male, known to me, admitted for recurrent falls f or back to 3 days with abnormal MRI the brain demonstrating right parietal infarct, involvin g the right MCA, thrombotic, nondominant hemisphere with mild right-sided weakness which res olved within less than 24 hours. Patient had his aspirin 325 mg and Plavix 75 mg daily cont inued however, added dipyridamole 25 mg 2 times a day and increase atorvastatin 40 mg daily for stroke prophylaxis. He receive aggressive PT/OT for gait training with patient improving to hospitalization. His hospital course was uneventful with patient discharge for outpatient PT/OT with Cooper walker. Physical therapist will go to her house. I discussed in detail above possible inpatien t however, patient refused and prefers to perform PT/OT at home. I discussed in detail the above diagnostic testing and workup performed the hospital with t he patient and have called his on the telephone with discussion, however she was not av ailable. In the event that his low back pain symptom worsens, advised to call me for possible trigge r point injections. Patient to follow-up in my office in 3-4 weeks and follow-up with PCP in 1-2 weeks. Review of Systems Denies headache, earache, nasal catarrh, diplopia, blurring of vision, dysphagia, odynophag ia, sore throat, neck masses, hearing loss, chest pain, palpitations, shortness of breath, c ough, hemoptysis, abdominal pain, diarrhea, constipation, bowel or bladder dysfunction, rinku turia, dysuria, lymphadenopathies, echhymoses, rashes, and homicidal or suicidal ideations. VITAL SIGNS: BP 140/69 | Pulse 97 | Temp 36.8 C (98.24 F) (Oral) | Resp 20 | Ht 1.6 76 m (5' 6") | Wt 92.3 kg (203 lb 7.8 oz) | SpO2 93% | BMI 32.84 kg/m MENTAL STATUS: The patient is awake, alert, and oriented to time, place, and person. [facility]. able to repeat, able to name simple objects, follows commands appropriately, able to recall 1 out of 2 objects after 1 and 5 minutes, pleasant examination CRANIAL NERVES: Funduscopy revealed distinct disc margins. There are no exudates or hemor rhages noted. Pupils are 3-4 mm, equal and reactive to light and accommodation. Extraocular muscle movements are intact. There are no visual field cuts. There is no nystagmus. There is no facial asymmetry. Facial sensation is intact. Palate elevates symmetrically. Streng th in the trapezius and sternocleidomastoid muscles is normal. Tongue is midline on protrusi on. MOTOR EXAMINATION: Strength is 5/5 throughout. Tone is normal. SENSORY EXAMINATION: impaired proprioception and vibratory sense at the toes with decrease d light touch in a stocking distribution up to the ankles bilaterally DEEP TENDON REFLEXES: trace to absent throughout PLANTAR RESPONSES: Downgoing bilaterally GAIT: wide-based stance, unable to tandem gait, and place with a rolling walker or cane, R omberg was negative CEREBELLAR EXAMINATION: mild tremors with hands outstretch, 9 12 hertz, with no evidenc e of spasticity, rigidity, bradykinesia MISCELLANEOUS EXAM: Well-nourished, pleasant, Atraum atic, no evidence of frontal or maxillary sinus tenderness, no neck masses, tenderness in th e paraspinal cervical spine, trapezius, and suprascapular muscles with the decrease with dec reased range of motion space on flexion and extension at 5-10, tenderness in the paraspina l lumbosacral spine with negative bilaterally,abdomen is soft nontender,equallypalpablepulse s Consults: Dr. Calvillo, hospitalist for consultation for questionable pneumonia and control of diabetes Discharge Exam: Recent Results (from the past 48 hour(s)) POC Glucose Collection Time: 11/02/18 16:39 Result Value Ref Range Glucose, POC 215 (H) 70 - 110 mg/dL Culture, Blood Collection Time: 11/02/18 16:55 Result Value Ref Range Culture No growth: Monitored continually by instrument for 5 days Lipid Panel Collection Time: 11/02/18 16:55 Result Value Ref Range Triglycerides 108 30 - 200 mg/dL Cholesterol 71 0 - 200 mg/dL HDL 24 (L) >=40 mg/dL Chol/HDL Ratio 3.0 <=5.0 LDL, Calculated 25 <130 mg/dL Culture, Urine Collection Time: 11/02/18 17:37 Result Value Ref Range Culture No significant organisms. POC Glucose Collection Time: 11/02/18 20:33 Result Value Ref Range Glucose, POC 235 (H) 70 - 110 mg/dL POC Glucose Collection Time: 11/03/18 4:21 Result Value Ref Range Glucose, POC 119 (H) 70 - 110 mg/dL CBC with Differential Collection Time: 11/03/18 5:30 Result Value Ref Range WBC 5.7 4.6 - 10.5 K/uL RBC 3.47 (L) 4.36 - 5.83 M/uL Hemoglobin 10.3 (L) 13.1 - 17.4 g/dL Hematocrit 32.1 (L) 39.0 - 51.9 % MCV 92.5 82.0 - 96.0 fL MCH 29.7 27.7 - 32.3 pg MCHC 32.1 32.0 - 36.9 g/dL RDW-CV 18.1 (H) 0.0 - 17.0 % Platelet Count 136 (L) 150 - 450 K/uL MPV 10.9 9.4 - 12.4 fL % Neutrophils 21.9 (L) 42.0 - 76.0 % % Lymphocytes 24.8 20.0 - 40.0 % % Monocytes 22.8 (H) 3.0 - 13.0 % % Eosinophils 29.6 (H) 0.0 - 7.0 % % Basophils 0.5 0.0 - 2.0 % % Immature Granulocytes 0.4 0.0 - 0.5 % Absolute Neutrophils 1.24 (L) 2.80 - 7.70 K/uL Absolute Lymphocytes 1.40 1.20 - 3.30 K/uL Absolute Monocytes 1.29 (H) 0.00 - 0.80 K/uL Absolute Eosinophils 1.67 (H) 0.00 - 0.70 K/uL Absolute Basophils 0.03 0.00 - 0.20 K/uL Absolute Immature Granulocytes 0.02 0.00 - 0.15 K/uL % nRBC 0 <=0 per 100 WBCs Absolute nRBC 0.00 0.00 - 0.01 K/uL Comprehensive Metabolic Panel Collection Time: 11/03/18 5:30 Result Value Ref Range Na 142 132 - 143 mmol/L K 3.7 3.3 - 4.9 mmol/L Cl 104 95 - 108 mmol/L CO2 32 23 - 34 mmol/L Anion Gap 6 (L) 7 - 16 mmol/L Glucose 130 (H) 70 - 110 mg/dL BUN 10 5 - 26 mg/dL Creatinine 0.93 0.70 - 1.40 mg/dL eGFR if not >60 >=60 mL/min/1.73m2 Ca 8.8 8.3 - 10.0 mg/dL Albumin 2.5 (L) 3.0 - 4.5 g/dL Bilirubin Total 0.5 0.0 - 1.2 mg/dL Total Protein 8.0 6.6 - 8.5 g/dL AST 16 0 - 38 U/L ALT 17 16 - 63 U/L Alkaline Phosphatase 73 46 - 116 U/L Globulin 5.5 (H) 2.4 - 4.5 g/dL Albumin/Globulin Ratio 0.5 (L) 0.8 - 2.0 BUN/Creatinine Ratio 10.8 7.0 - 24.0 Calcium, Ionized Collection Time: 11/03/18 5:30 Result Value Ref Range Calcium, Ionized 1.15 (L) 1.17 - 1.32 mmol/L Magnesium Collection Time: 11/03/18 5:30 Result Value Ref Range Magnesium 1.6 (L) 1.8 - 2.4 mg/dL Phosphorus Collection Time: 11/03/18 5:30 Result Value Ref Range Phosphorus 4.7 2.5 - 4.9 mg/dL POC Glucose Collection Time: 11/03/18 7:26 Result Value Ref Range Glucose, POC 140 (H) 70 - 110 mg/dL POC Glucose Collection Time: 11/03/18 11:44 Result Value Ref Range Glucose, POC 275 (H) 70 - 110 mg/dL POC Glucose Collection Time: 11/03/18 16:30 Result Value Ref Range Glucose, POC 277 (H) 70 - 110 mg/dL POC Glucose Collection Time: 11/03/18 20:28 Result Value Ref Range Glucose, POC 324 (H) 70 - 110 mg/dL POC Glucose Collection Time: 11/04/18 7:22 Result Value Ref Range Glucose, POC 137 (H) 70 - 110 mg/dL POC Glucose Collection Time: 11/04/18 11:37 Result Value Ref Range Glucose, POC 261 (H) 70 - 110 mg/dL Xr Chest Pa And Lateral Result Date: 10/27/2018 EXAMINATION: XR CHEST PA AND LATERAL HISTORY: emphysema with history of pneumonia COMPARISO N STUDY: CT chest 10/12/2018, 09/30/2018, 05/27/2018, 03/16/2018, 12/25/2016, 04/10/2015. FI NDINGS: Prominence of the donya noted bilateral. No lobar consolidation identified. No pleu ral effusion. In the left thorax demonstrates subtle ground-glass appearance at the mid low er lung zone. Heart size within normal limits. No acute bone finding. IMPRESSION: 1. Vague ground-glass left mid lower lung zone. This finding could relate to o verlap of normal anatomy, interstitial pneumonia, or edema. 2. Mild prominence of the donya b ilaterally which may relate to the adenopathy demonstrated previously. Three-month follow-u p CT thorax versus PET-CT recommended to further evaluate. The finding could relate to reac tive adenopathy over malignant adenopathy not excluded. 3. The previously noted left lower l obe nodule is not clearly demonstrated. This finding may relate to difference in imaging mo dality. Three-month follow-up CT thorax versus PET-CT recommended. Dictated by: Troy bah Xr Chest Pa And Lateral Result Date: 10/12/2018 EXAMINATION: XR CHEST PA AND LATERAL HISTORY: SHORTNESS OF BREATH COMPARISON STUDY: September FINDINGS: The lungs are hypoventilated. There is hazy opacity laterally at the left lung base. Blunting of the left costophrenic angle suggesting small pleural effusion. No p neumothorax. Cardiomediastinal silhouette is normal. No acute osseous process. IMPRESSION: 1. Left lower lobe pneumonia with small parapneumonic effusion. Dictated by: Nestor Alba Mri Brain Wo Contrast Result Date: 11/02/2018 EXAMINATION: MRI BRAIN WO CONTRAST HISTORY: tia COMPARISON STUDY: July 24, 2018, July 15, 2018, September 30, 2018, October 02, 2018 TECHNIQUE: Multiplanar multi sequence MRI of the brain i s performed without contrast. FINDINGS: Subtle area of right parietal cortical diffusion res triction. In the adjacent sulcus there is linear low signal intensity on the T2 gradient se quence suggesting a thrombosed vessel. This appearance is new compared to the July 2018 MR I. The reinoso-white matter interface is intact. No acute intracranial hemorrhage, mass lesion, or midline shift. Basilar cisterns are patent. Ventricles are symmetric. Sulci are mildly p rominent and out of proportion to the ventricles. Mild cerebellar volume loss. Remote right cerebellar lacunar infarct. Major flow voids are present. Mild confluent periventricular wh ite matter T2 hyperintensity. There are few patchy deep and subcortical white matter hyperi ntensities, unchanged. Mild sphenoid and maxillary sinus mucosal thickening.. The pituitary gland is unremarkable. Corpus callosum is unremarkable. Brainstem is unremarkable. IMPRESSION: 1. Small right parietal cortical infarct with adjacent thrombosed vessel. 2. St able white matter disease. 3. Prior right cerebellar lacunar infarct, unchanged. 4. Stable v olume loss. 5. Mild paranasal sinus mucosal thickening. 6. The results of the study were di scussed with JALYN CARIAS at 17:30 7. Dictated by: Massimo Alba Nm Gastric Emptying Result Date: 10/16/2018 EXAMINATION: NM GASTRIC EMPTYING HISTORY: suspected gastroparesis COMPARISON STUDY: None TE CHNIQUE: 1.0 millicuries of sulfur colloid was combined with a standard meal and consumed by the patient. Routine imaging over 4 hours was then performed. FINDINGS: Today's study demo nstrates the following values: T1/2 emptying time 102.8 minutes. 60 minutes retention 78.3 % 90 minutes retention 42.0 % 120 minutes retention 29.3 % 240 minute retention 7.0 % Normal gastric emptying T1/2 60-110 minutes Normal retention values; 30 minutes 70-100% 60 minutes 39-90% 120 minutes 30-60% 240 minutes 0-10% IMPRESSION: Normal gastric emptying. Dictated by: Massimo Alba Fl Video Swallow W Speech Result Date: 10/14/2018 EXAMINATION: FL VIDEO SWALLOW W SPEECH HISTORY: concern for silent aspiration with repeat p na COMPARISON STUDY: None FINDINGS: Swallow study was performed in conjunction with speech t herapy. Has small amount of pooling within the vallecula and piriform sinus. No aspiration. The course and caliber of the esophagus is normal. Mild irregularity of the distal esophagu s. No focal stricture or mass lesion is identified. There is no hiatal hernia. Mild spontane ous gastroesophageal reflux. Moderate mid and distal esophageal dysmotility with associated tertiary contractions.. FLUORO TIME: Time:5 seconds Number of images:[id number] IMPRESSION: 1. Mild irregularity of the distal esophagus. Given the history of chronic ref lux, direct visualization is recommended to rule out an underlying malignancy or pre maligna nt state. 2. Esophageal dysmotility. 3. No evidence of aspiration. Dictated by: Massimo Hutchisnon am Xr Chest Ap Portable Result Date: 11/02/2018 EXAMINATION: XR CHEST AP PORTABLE HISTORY: WEAKNESS COMPARISON STUDY: None FINDINGS: The dylon ngs are noted have hazy opacity laterally at the left lung base. Mild hypoventilation. No pleural effusion. No pneumothorax. Heart size is upper limits of normal. No acute osseous process. IMPRESSION: Left lower lobe pneumonia. Dictated by: Massimo Alba Ct Angiogram Pulmonary W Contrast Result Date: 10/12/2018 EXAMINATION: CT ANGIOGRAM PULMONARY W CONTRAST HISTORY: SHORTNESS OF BREATH, worsening effu jessica with ling nodules. COMPARISON STUDY: September 30, 2018, October 12, 2018 TECHNIQUE: 1.25 mm axi al slices were acquired through the lungs during an arterial phase of contrast. Multiplanar MIP reconstructions were performed. There was no post contrast reaction. DOSE REPORT: Tot al exam DLP 700.98 mGy cm. Automated exposure control was utilized. FINDINGS: The bolus of contrast is adequate. No pulmonary artery filling defect. Great vessel caliber is normal. Me diastinum and hilum demonstrate prominent adenopathy, similar to the previous exam from September 2018. Overall size of lymph nodes have decreased. For example, right hilar node on image number 107 has a short diameter of 1.5 cm compared to previous 2.0 cm. Subcarinal marshall clu ster has a short diameter of 2.8 cm compared to previous 3.0 cm. Other paratracheal and AP window nodes are similar to slightly smaller in size. Heart size is stable. Trace pericardia l effusion. Coronary arteries have scattered atherosclerosis. No pleural effusion. No pneumo thorax. Lung parenchyma demonstrates new bibasilar airspace opacities, left greater than rig ht. Right lower lobe lung nodule on image number 109 measures up to 9 mm. Previously this measured up to 12 mm. The juxtapleural nodule in the left lower lobe on image number 144 o f the previous exam is not re-evaluated due to the basilar opacity. Bilateral lower lobe br onchial wall thickening. There is aerated fluid or debris dependently within the midesophagu s. Limited evaluation of abdominal viscera. Small hiatal hernia. No acute bone process. IMPRESSION: 1. New bibasilar infectious versus aspiration pneumonia. 2. Mediastinal and hil ar lymphadenopathy is mildly improved. Additionally there is mild interval decreased size o f the left basilar lung nodule. Query infectious versus inflammatory process. Continued rhodes rveillance is recommended. 3. The left basilar juxtapleural nodule of concern on the previou s exam is obscured by the basilar pneumonia. Attention to this on subsequent follow-up. 4. Coronary artery disease. 5. Trace pericardial effusion. 6. Cardiomegaly. 7. The results of the study were discussed with Yuli Sanford for SHAHEEN HOWARD at 15:58 Dictated b y: Massimo Alba Ct Angiogram Head Neck Acute Stroke Result Date: 11/02/2018 EXAMINATION: CT ANGIOGRAM HEAD NECK ACUTE STROKE HISTORY: Suspect Acute Stroke COMPARISON S TUDY: October 02, 2018, October 12, 2018 TECHNIQUE: 5 mm noncontrast brain imaging was performed. 0.63 mm axial slices were acquired through the neck and brain during the arterial phase of contrast. Multiplanar MIP reconstruction was performed. Vessel analysis was performed on a n independent workstation. There is no post contrast reaction DOSE REPORT: CTDIvol: 25.7 - 40.4 mGy. DLP: 1730 mGy-cm. Automated exposure control was utilized. FINDINGS: No evidence of an acute intracranial hemorrhage, mass lesion, or midline shift. The reinoso-white matter in terface is intact. The ventricles are symmetric. Sulci are mildly prominent at the vertex. B asilar cisterns are patent. Remote small right cerebellar lacunar infarct. Mild periventric ular white matter hypodensity. Paranasal sinuses and mastoid air cells are clear with except ion of mild maxillary sinus mucosal thickening, increased compared to the previous exam. Th ere is also mild increased sphenoid sinus mucosal thickening. No fracture. CTA evaluation de monstrates patency of the carotid and vertebral arteries. Bilateral carotid atherosclerosis. The right internal carotid artery has no stenosis. The left internal carotid artery has no stenosis. Pericallosal arteries are patent. Anterior cerebral arteries are patent. Anterior communicating artery is patent. Middle cerebral arteries are patent. Posterior cerebral beatris obdulio are patent. Posterior communicating arteries are patent. Basilar artery is patent. Vert ebral arteries are patent. Temporomandibular joints are normal. The aerodigestive tract is p atent. The parotid glands are symmetric. The submandibular glands are symmetric. Mediastinal enlarged lymph nodes. These are stable compared to the previous exam. Lung apices are jesus r. There is normal alignment of the cervical spine. Endplate degenerative changes are noted C3 through C7. Endplate productive change C4 through C7. Prior lens orbital surgery on the left. IMPRESSION: 1. No acute intracranial process is identified. 2. Atherosclerosis of the carot id arteries without stenosis. 3. No aneurysmal dilatation or dissection is identified. 4. Mi ld interval increased maxillary and sphenoid sinus mucosal thickening. 5. Enlarged mediastin al lymph nodes, unchanged. 6. Multilevel degenerative change of the spine. 7. The results o f the study were discussed with ROZ SANCHES at 15:05 Dictated by: Massimo Alba Disposition: home Patient Instructions: Discharge Medications New Medications Details dipyridamole 25 mg tablet Take 1 tablet by mouth 3 times daily for 30 days. aka: PERSANTINE Changed Medications Details atorvaSTATin 40 mg tablet Take 1 tablet by mouth Daily for 30 days. What changed: medication strength how much to take when to take this aka: LIPITOR Start: 11/05/2018 Unchanged Medications Details albuterol 2.5 mg/3 mL nebulizer solution Take 3 mLs by nebulization every 4 hours as needed for Shortness of Breath. albuterol-ipratropium 2.5-0.5 mg/3 mL Soln Take 3 mLs by nebulization every 6 hours. amLODIPine 10 MG tablet Take 10 mg by mouth every morning. aka: NORVASC aspirin 325 mg tablet Take 325 mg by mouth every morning. cholecalciferol 1000 units Tabs Take 2,000 Units by mouth every morning. aka: VITAMIN D-3 clopidogrel 75 mg tablet Take 75 mg by mouth every morning. aka: PLAVIX cyanocobalamin 1000 MCG tablet Take 1,000 mcg by mouth every morning. aka: VITAMIN B-[address] capsule Take 60 mg by mouth every morning. aka: CYMBALTA insulin glargine 100 units/mL injection (vial) Inject 35 Units under the skin nightly. aka: LANTUS levothyroxine 100 mcg tablet Take 2.5 tablets by mouth every morning (before breakfast) for 90 days. aka: SYNTHROID losartan 50 mg tablet Take 50 mg by mouth every morning. aka: COZAAR NOVOLOG 100 units/mL injection Generic drug: insulin aspart Inject 15 Units under the skin every morning. pantoprazole 20 mg tablet Take 20 mg by mouth every morning (before breakfast). aka: PROTONIX pregabalin 300 MG capsule Take 300 mg by mouth 2 times daily. aka: LYRICA tamsulosin 0.4 mg Caps Take 0.4 mg by mouth nightly. aka: FLOMAX testosterone 2 mg/[address] 1 patch onto the skin nightly. aka: ANDRODERM traZODone 100 mg tablet Take 100 mg by mouth nightly. aka: DESYREL Discontinued Medications urea 40 % Crea aka: CARMOL Follow-up with Dr. Farzad Carias, neurologists, in the 4 weeks, Follow-up with PCP in 1-2 weeks Plavix 75 mg, aspirin 325 mg, and dipyridamole 25 mg 3 times a day Continue outpatient PT/OT through [facility] Patient given medical education as to stroke risk factors and compliance Ambulate with a rolling walker or cane at all times requiring assistance Advised to call for increasing low back pain Signed: Jalyn Carias MD 11/04/2018 16:28 Electronically signed NOTE: Part of this report was transcribed using voice recognition software. Every effort was made to ensure accuracy. However, inadvertent computerize web manager errors may be present documented in this encounter Discharge Instructions Instructions Jalyn Carias MD - 11/04/2018Follow-up with Dr. Farzad Carias, neurologists, in the 4 weeks, Follow-up with PCP in 1-2 weeks Plavix 75 mg, aspirin 325 mg, and dipyridamole 25 mg 3 times a day Continue outpatient PT/OT through [facility] Patient given medical education as to stroke risk factors and compliance Ambulate with a rolling walker or cane at all times requiring assistance Advised to call for increasing low back pain AttachmentsThe following attachments cannot be sent through Care Everywhere.TIA, What Is (Parul mccarty)documented in this encounter Medications at Time of Discharge + + + +---------+ + + | Medication | Sig | Dispensed | Refills | Start | End Date | | | | | | Date | | + + + +---------+ + + | albuterol 2.5 mg/3 | Take 3 mLs by | 360 | 0 | // | | | mL nebulizer | nebulization every 4 | vial | | 19 | | | solution | hours as needed for | | | | | | | Shortness of | | | | | | | Breath. | | | | | + + + +---------+ + + | | Take 3 mLs by | 360 mL | 0 | // | | | albuterol-ipratropiu | nebulization every [...] documented as of this encounter Progress Notes Scott Caballero, Ship Pilot - 11/04/2018 11:11 AM PDT PHARMACY SERVICES: DISCHARGE MEDICATION TEACHING Geraldo Mcfadden is a 78 y.o. male admitted on 11/02/18 for TIA and was discharged on 11/04. Discharge Medications New Medications Details dipyridamole 25 mg tablet Take 1 tablet by mouth 3 times daily for 30 days. aka: PERSANTINE Changed Medications Details atorvaSTATin 40 mg tablet Take 1 tablet by mouth Daily for 30 days. What changed: medication strength how much to take when to take this aka: LIPITOR Start: 11/05/2018 Unchanged Medications Details albuterol 2.5 mg/3 mL nebulizer solution Take 3 mLs by nebulization every 4 hours as needed for Shortness of Breath. albuterol-ipratropium 2.5-0.5 mg/3 mL Soln Take 3 mLs by nebulization every 6 hours. amLODIPine 10 MG tablet Take 10 mg by mouth every morning. aka: NORVASC aspirin 325 mg tablet Take 325 mg by mouth every morning. cholecalciferol 1000 units Tabs Take 2,000 Units by mouth every morning. aka: VITAMIN D-3 clopidogrel 75 mg tablet Take 75 mg by mouth every morning. aka: PLAVIX cyanocobalamin 1000 MCG tablet Take 1,000 mcg by mouth every morning. aka: VITAMIN B-[address] capsule Take 60 mg by mouth every morning. aka: CYMBALTA insulin glargine 100 units/mL injection (vial) Inject 35 Units under the skin nightly. aka: LANTUS levothyroxine 100 mcg tablet Take 2.5 tablets by mouth every morning (before breakfast) for 90 days. aka: SYNTHROID losartan 50 mg tablet Take 50 mg by mouth every morning. aka: COZAAR NOVOLOG 100 units/mL injection Generic drug: insulin aspart Inject 15 Units under the skin every morning. pantoprazole 20 mg tablet Take 20 mg by mouth every morning (before breakfast). aka: PROTONIX pregabalin 300 MG capsule Take 300 mg by mouth 2 times daily. aka: LYRICA tamsulosin 0.4 mg Caps Take 0.4 mg by mouth nightly. aka: FLOMAX testosterone 2 mg/[address] 1 patch onto the skin nightly. aka: ANDRODERM traZODone 100 mg tablet Take 100 mg by mouth nightly. aka: DESYREL Discontinued Medications urea 40 % Crea aka: JOSIE Ward and his were both present, so discharge counseling provided to both of them regard ing dosing, administration, and potential side effects of the above change/new med. -Atorvastatin: Dose increase from 10mg to 40mg; watch for and report any signs of new/worse guzman muscle/joint pain or discolored dark urine; recommend taking @ night for better efficac y -Dipyridamole: 1 tab tid on empty stomach, 1hr before or 2hrs after meals; acts to reduce b lood pressure by relaxing blood vessels; may cause abdominal pain/dizziness; may take w/ ceci d or milk if upsetting stomach Patient was also told to stop the urea 40% cream. Patient and confirm understanding an d state no new questions at this time. Electronically signed by: Scott Caballero, Ship Pilot 11/04/2018 11:11Electronically sig tavares by Vivek Juares, PharmD at 11/04/2018 1:02 PM PDTLim, Jalyn Panda MD - 11/04/2018 10: 16 AM PDT Patient: Geraldo Mcfadden : 1940: Age: 78 y.o. MedRec: [id number] PCP: Horacio Silvestre DO Admission date: 11/02/2018 Hospital day # : 0 Physician author: Jalyn Carias MD Today: 11/03/2018 Geraldo Mcfadden is a 78 y.o. male right-handed male, seen for neurologic evaluation, wi th recurrent falls for the past 2-3 days, complaining of increasing weakness in lower extrem ities and questionable left-sided weakness. Patient had MRI the brain demonstrating a right parietal infarct, acute and admitted for further evaluation and treatment. Patient to cont inue Plavix 75 mg with aspirin 325 mg and dipyridamole 25 mg 3 times a day for stroke prophy laxis. He receive aggressive PT/OT and with patient improving will require outpatient PT OT with [facility] outpatient. He was given medical education of stroke risk factors. Review of Systems Denies headache, earache, nasal catarrh, diplopia, blurring of vision, dysphagia, odynophag ia, sore throat, neck masses, hearing loss, chest pain, palpitations, shortness of breath, c ough, hemoptysis, abdominal pain, diarrhea, constipation, bowel or bladder dysfunction, rinku turia, dysuria, lymphadenopathies, echhymoses, rashes, and homicidal or suicidal ideations. Low back pain, tolerable Objective: VITAL SIGNS: BP 140/69 | Pulse 97 | Temp 36.8 C (98.24 F) (Oral) | Resp 20 | Ht 1.6 76 m (5' 6") | Wt 92.3 kg (203 lb 7.8 oz) | SpO2 93% | BMI 32.84 kg/m MENTAL STATUS: The patient is awake, alert, and oriented to time, place, and person. [facility]. able to repeat, able to name simple objects, follows commands appropriately, able to recall 1 out of 3 objects after 1 and 5 minutes CRANIAL NERVES: Funduscopy revealed distinct disc margins. There are no exudates or hemor rhages noted. Pupils are 3-4 mm, equal and reactive to light and accommodation. Extraocular muscle movements are intact. There are no visual field cuts. There is no nystagmus. There is no facial asymmetry. Facial sensation is intact. Palate elevates symmetrically. Streng th in the trapezius and sternocleidomastoid muscles is normal. Tongue is midline on protrusi on. MOTOR EXAMINATION: Strength is 5/5 throughout. Tone is normal. SENSORY EXAMINATION: impaired proprioception and vibratory sense at the toes with decrease d light touch in a stocking distribution up at ankles bilaterally DEEP TENDON REFLEXES: trace to absent throughout PLANTAR RESPONSES: Downgoing bilaterally GAIT: wide-based stance, requires assistance for ambulation, unable to tandem gait, Romber g's negative CEREBELLAR EXAMINATION: There is no dysmetria on ywcoai-so-eawl test. MISCELLANEOUS EXAM: Well kept, well nourished, Atraumatic, no evidence of frontal or maxill yamilex sinus tenderness, no neck masses, tenderness in the paraspinal cervical spine, trapezius , and suprascapular muscles with the decrease with decreased range of motion space on flexio n and extension at 5-10, tenderness in the paraspinal lumbosacral spine with increased wali n upon flexion and extension at 5-10, abdomen is soft and nontender, extremities equally p alpable pulses Vital sign ranges for last 24hrs: Input and output for last 24hrs: Temp: [36.5 C (97.7 F)-37.3 C (99.1 F)] 36.8 C (98.24 F) Pulse: [78-105] 97 Resp: [18-20] 20 BP: (122-153)/(55-86) 140/69 SpO2 Av.7 % Min: 88 % Max: 100 % Flow (L/min) Av.6 Min: 1 Max: 2 11/02 1901 - 11/04 0700 In: 4358 [P.O.:2506; I.V.:1752] Out: 1600 [Urine:1600] Admit Weight: Weight: 92 kg (202 lb 13.2 oz) Current weight: Weight: 92.3 kg (203 lb 7.8 oz) Labs: Recent Results (from the past 24 hour(s)) POC Glucose Result Value Ref Range Glucose, POC 275 (H) 70 - 110 mg/dL POC Glucose Result Value Ref Range Glucose, POC 277 (H) 70 - 110 mg/dL POC Glucose Result Value Ref Range Glucose, POC 324 (H) 70 - 110 mg/dL POC Glucose Result Value Ref Range Glucose, POC 137 (H) 70 - 110 mg/dL Mri Brain Wo Contrast Result Date: 11/02/2018 EXAMINATION: MRI BRAIN WO CONTRAST HISTORY: tia COMPARISON STUDY: July 24, 2018, July 15, 2018, September 30, 2018, October 02, 2018 TECHNIQUE: Multiplanar multi sequence MRI of the brain i s performed without contrast. FINDINGS: Subtle area of right parietal cortical diffusion res triction. In the adjacent sulcus there is linear low signal intensity on the T2 gradient se quence suggesting a thrombosed vessel. This appearance is new compared to the July 2018 MR I. The reinoso-white matter interface is intact. No acute intracranial hemorrhage, mass lesion, or midline shift. Basilar cisterns are patent. Ventricles are symmetric. Sulci are mildly p rominent and out of proportion to the ventricles. Mild cerebellar volume loss. Remote right cerebellar lacunar infarct. Major flow voids are present. Mild confluent periventricular wh ite matter T2 hyperintensity. There are few patchy deep and subcortical white matter hyperi ntensities, unchanged. Mild sphenoid and maxillary sinus mucosal thickening.. The pituitary gland is unremarkable. Corpus callosum is unremarkable. Brainstem is unremarkable. IMPRESSION: 1. Small right parietal cortical infarct with adjacent thrombosed vessel. 2. St able white matter disease. 3. Prior right cerebellar lacunar infarct, unchanged. 4. Stable v olume loss. 5. Mild paranasal sinus mucosal thickening. 6. The results of the study were di scussed with JALYN CARIAS at 17:30 7. Dictated by: Massimo Alba Xr Chest Ap Portable Result Date: 11/02/2018 EXAMINATION: XR CHEST AP PORTABLE HISTORY: WEAKNESS COMPARISON STUDY: None FINDINGS: The dylon ngs are noted have hazy opacity laterally at the left lung base. Mild hypoventilation. No pleural effusion. No pneumothorax. Heart size is upper limits of normal. No acute osseous process. IMPRESSION: Left lower lobe pneumonia. Dictated by: Massimo Alba Ct Angiogram Head Neck Acute Stroke Result Date: 11/02/2018 EXAMINATION: CT ANGIOGRAM HEAD NECK ACUTE STROKE HISTORY: Suspect Acute Stroke COMPARISON S TUDY: October 02, 2018, October 12, 2018 TECHNIQUE: 5 mm noncontrast brain imaging was performed. 0.63 mm axial slices were acquired through the neck and brain during the arterial phase of contrast. Multiplanar MIP reconstruction was performed. Vessel analysis was performed on a n independent workstation. There is no post contrast reaction DOSE REPORT: CTDIvol: 25.7 - 40.4 mGy. DLP: 1730 mGy-cm. Automated exposure control was utilized. FINDINGS: No evidence of an acute intracranial hemorrhage, mass lesion, or midline shift. The reinoso-white matter in terface is intact. The ventricles are symmetric. Sulci are mildly prominent at the vertex. B asilar cisterns are patent. Remote small right cerebellar lacunar infarct. Mild periventric ular white matter hypodensity. Paranasal sinuses and mastoid air cells are clear with except ion of mild maxillary sinus mucosal thickening, increased compared to the previous exam. Th ere is also mild increased sphenoid sinus mucosal thickening. No fracture. CTA evaluation de monstrates patency of the carotid and vertebral arteries. Bilateral carotid atherosclerosis. The right internal carotid artery has no stenosis. The left internal carotid artery has no stenosis. Pericallosal arteries are patent. Anterior cerebral arteries are patent. Anterior communicating artery is patent. Middle cerebral arteries are patent. Posterior cerebral beatris obdulio are patent. Posterior communicating arteries are patent. Basilar artery is patent. Vert ebral arteries are patent. Temporomandibular joints are normal. The aerodigestive tract is p atent. The parotid glands are symmetric. The submandibular glands are symmetric. Mediastinal enlarged lymph nodes. These are stable compared to the previous exam. Lung apices are jesus r. There is normal alignment of the cervical spine. Endplate degenerative changes are noted C3 through C7. Endplate productive change C4 through C7. Prior lens orbital surgery on the left. IMPRESSION: 1. No acute intracranial process is identified. 2. Atherosclerosis of the carot id arteries without stenosis. 3. No aneurysmal dilatation or dissection is identified. 4. Mi ld interval increased maxillary and sphenoid sinus mucosal thickening. 5. Enlarged mediastin al lymph nodes, unchanged. 6. Multilevel degenerative change of the spine. 7. The results o f the study were discussed with ROZ SANCHES at 15:05 Dictated by: Massimo Alba ENT MEDICATIONS: Current Facility-Administered Medications Medication Dose Route Frequency Provider Last Rate Last Dose albuterol 2.5 mg/3 mL nebulizer solution 2.5 mg 2.5 mg Nebulization Q4H PRN Jalyn Carias MD albuterol-ipratropium 2.5-0.5 mg/3 mL nebulizer solution 3 mL 3 mL Nebulization 4 time s per day Jalyn Carias MD 3 mL at 11/04/18 0711 amLODIPine (NORVASC) tablet 10 mg 10 mg Oral JASON Carias MD 10 mg at 11/04/18 0914 aspirin EC tablet 325 mg 325 mg Oral Daily Jalyn Carias MD 325 mg at 11/04/18 0915 atorvaSTATin (LIPITOR) tablet 40 mg 40 mg Oral Daily Jalyn Carias MD 40 mg at 0704/25 0915 clopidogrel (PLAVIX) tablet 75 mg 75 mg Oral QAM Jalyn Carias MD 75 mg at 11/04/18 0915 docusate sodium (COLACE) capsule 100 mg 100 mg Oral BID PRN Jalyn Carias MD DULoxetine (CYMBALTA) DR capsule 60 mg 60 mg Oral QAM Jalyn Carias MD 60 mg at 0915 heparin 5,000 units/mL injection 5,000 Units 5,000 Units Subcutaneous 3 times per day Jalny Carias MD 5,000 Units at 11/04/18743 HYDROcodone-acetaminophen (NORCO) 5-325 mg per tablet 1 tablet 1 tablet Oral Q6H PRN R aram Carias MD 1 tablet at 11/04/18 0802 insulin glargine (LANTUS) injection (vial) 35 Units 35 Units Subcutaneous Nightly Rodr yany Carias MD 35 Units at 11/03/182036 insulin lispro (humaLOG) injection (vial) 0-6 Units 0-6 Units Subcutaneous 4x Daily WC and HS Jalyn Carias MD 3 Units at 11/03/182038 levothyroxine (SYNTHROID) tablet 250 mcg 250 mcg Oral QAM AC Jalyn Carias MD 250 m cg at 11/04/18 0744 losartan (COZAAR) tablet 50 mg 50 mg Oral QAM Jalyn Carias MD 50 mg at 11/04/18 09 15 ondansetron (ZOFRAN) injection 4 mg 4 mg Intravenous Q6H PRN Jalyn Carias MD pantoprazole (PROTONIX) DR tablet 20 mg 20 mg Oral QAM HUSSEIN Carias MD 20 mg at 11/04/18 0750 pregabalin (LYRICA) capsule 300 mg 300 mg Oral BID Jalny Carias MD 300 mg at 11/04 0915 sodium chloride 0.9% (NS) infusion Intravenous Continuous Jalyn Carias MD 50 mL/hr at 11/03/18 154 tamsulosin (FLOMAX) capsule 0.4 mg 0.4 mg Oral Nightly Jalyn Carias MD 0.4 mg at 0 11/03/182024 traZODone (DESYREL) tablet 100 mg 100 mg Oral Nightly Jalyn Carias MD 100 mg at 2024 Assessment: Acute CVA, right parietal lobe, thrombotic, nondominant hemisphere, improving Gait disorder, multifactorial Diabetic polyneuropathy, as evidenced by impaired sensory modalities and reflexes Hypertension History of low back pain, chronic, due to multilevel visual spine disease Plan: Patient clinically improving with increasing strength in his lower extremities and left upp er extremity Continue aspirin 325 mg and Plavix 75 mg daily for stroke prophylaxis, add dipyridamole 25 mg 3 times a day Aggressive PT/OT Discussed with patient detail about PT/OT as an outpatient and to use a rolling walker for ambulation If patient is neurologically stable, can be discharged as an outpatient and perform PT/OT a s an outpatient Patient was given medical education as to stroke risk factors and compliant medications. P mitzi was advised to use rolling walker for ambulation. I advised that in the event that his low back pain worsens I advised to call for possible t theatrical rigger point injections Estimated date of Discharge: November 04, 2018 Time spent on counseling/coordination of care: 45 Minutes Total time spent with patient: 30 Minutes Jalyn Carias M.D. Electronically signed NOTE: Part of this report was transcribed using voice recognition software. Every effort was made to ensure accuracy. However, inadvertent computerize web manager errors may be present Jas Cohen RRT - 11/03/2018 8:51 AM PDTAwake and drowsy EEG performed, patient tolerated study well. Beth Stein RN - 11/03/2018 6:03 AM PDTJikyle had a good night l ast night. VSS, he complained of lower back pain and was given a kpad and a norco twice thro ughout the night. When I explained that the norco was 5 mg of oxy and 325 of tylenol he said tylenol does nothing for him and usually 10 mg of oxy is what they give him. He appeared co mfortable throughout the night and slept peacefully until he was awoken. His [employer] D[employer] meds reflec rosemarie nothing of pain management when at home; when asked, Ed says the 10 of oxy is what they give him when he is at home. Ed says his grandson with [employer] lives with him and his and helps him around the h ouse and with his meds. 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 Ed's neuro assessments and NIH assessment at the beginning of the shift was benign. Assess ment choi, his lung sounds were course in the bases. He wore 2L of o2 throughout the night. His heart rate was NSR in the 90s with some PACs. Ed believes he was admitted for pneumonia , and was explained that he was admitted for stroke like symptoms and I explained the pneumo bebe was from the last visit. He was encouraged to deep breathe and cough still. Ed hopes to go back home today. Scott Mendes, Ship Pilot - 11/02/2018 3:50 PM PDTFormatting of this no te might be different from the original. PHARMACY SERVICES: ADMISSION MEDICATION REVIEW eGraldo Mcfadden is a 78 y.o. male admitted on 11/02/2018. Patient was not a reliable historian. Location of Patient when reviewed: ED Patient s prior to admit medication and over the counter (OTC) medications/herbal supplem ents list obtained from: Patient able to recall SOME Name, strength, and directions Patient/family member provided a complete current medication list or bottles Noted medications discrepancies or medication-related issues: Medication added: Medication: Prior to Admission Sig: Novolog 100 units/mL IJ Inject 15 units under the skin every morning Removed therapy: Medication: Prior to Admission Sig: Reason for Removal: Hydrochlorothiazide 25 mg tablet Take 25 mg po qam Patient's son stated no longer taking Patient was not a reliable historian, but his son was present so interview conducted with h im revealing the above changes. He stated that they've been having a lot of trouble obtainin g a nebulizer due to [facility] and [facility]. Other than that most of the meds are up to date as Mr. Mcfadden had been discharged f rom our care not long ago. Medication review performed and electronically signed by Scott Caballero, Ship Pilot 15:50 documented in this encounter Plan of Treatment [...] [place] | | | | | | [address] | | | | | | [phone] | | | | | | | | +--------+---------+ + + + | 02/26/ | Office | Urology | Lillie Fowler | | | 2018 | Visit | | LILLIE Lopez [address] | | | | [address] | | | | | | [place] | | | | | | [address] | | | | | | [phone] | | | | | | | | +--------+---------+ + + + | 03/16/ | Office | Neurology | Theresa, | | | 2018 | Visit | | SHONDA Mckinney [address] | | [address] [place], | | | | | | [place] [address] | | | | | | [phone] | | | | | | | | +--------+---------+ + + + | 04/12/ | Office | Primary Care | Massimo Ramos | | | 2019 | Visit | | MD Fer [address] | | | | | | [address] [place] | | | | | | [address] | | | | | | | | +--------+---------+ + + + | 10/03/ | Office | Neurology | Jalyn Carias MD | | | 2019 | Visit | | [address] | | | | | | [place] | | | | | | [address] | | | | | | | | +--------+---------+ + + + + +------+--------+ + + | Name | Type | Priori | Associated Diagnoses | Date/Time | | | | ty | | | + +------+--------+ + + | ED INFORMATION | BRIT | Routin | | 11/02/2018 12:30 PM | | EXCHANGE | | e [...] | | | care | | | Certified Personal Trainer-C | | | | | | | [...] | | | care | | | Certified Personal Trainer-C | | | | | | | [...] | | | care | | | Certified Personal Trainer-C | | | | | | | [...] | | | care | | | Certified Personal Trainer-C | | | | | | | [...] | ECG - EXTERNAL SCAN | | 11/06/2018 | | Results for this | | | | 12:00 AM | | procedure are in the | | | | PDT | | results section. | + +--------+ + + + | POC GLUCOSE | Routin | 11/04/2018 | | Results for this | | | e | 11:37 AM | | procedure are in the | | | | PDT | | results section. | + +--------+ + + + | POC GLUCOSE | Routin | 11/04/2018 | | Results for this | | | e | 7:22 AM | | procedure are in the | | | | PDT | | results section. | + +--------+ + + + | POC GLUCOSE | Routin | 11/03/2018 | | Results for this | | | e | 8:28 PM | | procedure are in the | | | | PDT | | results section. | + +--------+ + + + | POC GLUCOSE | Routin | 11/03/2018 | | Results for this | | | e | 4:30 PM | | procedure are in the | | | | PDT | | results section. | + +--------+ + + + | POC GLUCOSE | Routin | 11/03/2018 | | Results for this | | | e | 11:44 AM | | procedure are in the | | | | PDT | | results section. | + +--------+ + + + | EEG | Routin | 11/03/2018 | | Results for this | | | e | 11:09 AM | | procedure are in the | | | | PDT | | results section. | + +--------+ + + + | POC GLUCOSE | Routin | 11/03/2018 | | Results for this | | | e | 7:26 AM | | procedure are in the | | | | PDT | | results section. | + +--------+ + + + | CBC WITH | Routin | 11/03/2018 | | Results for this | | DIFFERENTIAL | e | 5:30 AM | | procedure are in the | | | | PDT | | results section. | + +--------+ + + + | PHOSPHORUS | Routin | 11/03/2018 | | Results for this | | | e | 5:30 AM | | procedure are in the | | | | PDT | | results section. | + +--------+ + + + | MAGNESIUM | Routin | 11/03/2018 | | Results for this | | | e | 5:30 AM | | procedure are in the | | | | PDT | | results section. | + +--------+ + + + | CALCIUM, IONIZED | Routin | 11/03/2018 | | Results for this | | | e | 5:30 AM | | procedure are in the | | | | PDT | | results section. | + +--------+ + + + | COMPREHENSIVE | Routin | 11/03/2018 | | Results for this | | METABOLIC PANEL | e | 5:30 AM | | procedure are in the | | | | PDT | | results section. | + +--------+ + + + | POC GLUCOSE | Routin | 11/03/2018 | | Results for this | | | e | 4:21 AM | | procedure are in the | | | | PDT | | results section. | + +--------+ + + + | POC GLUCOSE | Routin | 11/02/2018 | | Results for this | | | e | 8:33 PM | | procedure are in the | | | | PDT | | results section. | + +--------+ + + + | CULTURE, URINE | Routin | 11/02/2018 | | Results for this | | | e | 5:37 PM | | procedure are in the | | | | PDT | | results section. | + +--------+ + + + | MRI BRAIN WO | Routin | 11/02/2018 | | Results for this | | CONTRAST | e | 5:17 PM | | procedure are in the | | | | PDT | | results section. | + +--------+ + + + | LIPID PANEL | Routin | 11/02/2018 | | Results for this | | | e | 4:55 PM | | procedure are in the | | | | PDT | | results section. | + +--------+ + + + | CULTURE, BLOOD | Routin | 11/02/2018 | | Results for this | | | e | 4:55 PM | | procedure are in the | | | | PDT | | results section. | + +--------+ + + + | POC GLUCOSE | Routin | 11/02/2018 | | Results for this | | | e | 4:39 PM | | procedure are in the | | | | PDT | | results section. | + +--------+ + + + | URINALYSIS WITH | STAT | 11/02/2018 | | Results for this | | MICROSCOPIC WITH | | 3:11 PM | | procedure are in the | | CULTURE IF INDICATED | | PDT | | results section. | + +--------+ + + + | XR CHEST AP PORTABLE | STAT | 11/02/2018 | | Results for this | | | | 2:39 PM | | procedure are in the | | | | PDT | | results section. | + +--------+ + + + | CT ANGIOGRAM HEAD | STAT | 11/02/2018 | | Results for this | | NECK ACUTE STROKE | | 2:31 PM | | procedure are in the | | | | PDT | | results section. | + +--------+ + + + | DIFFERENTIAL, MANUAL | Routin | 11/02/2018 | | Results for this | | | e | 2:10 PM | | procedure are in the | | | | PDT | | results section. | + +--------+ + + + | CBC WITH | STAT | 11/02/2018 | | Results for this | | DIFFERENTIAL | | 2:10 PM | | procedure are in the | | | | PDT | | results section. | + +--------+ + + + | TROPONIN I | Routin | 11/02/2018 | | Results for this | | | e | 2:00 PM | | procedure are in the | | | | PDT | | results section. | + +--------+ + + + | PTT | STAT | 11/02/2018 | | Results for this | | | | 2:00 PM | | procedure are in the | | | | PDT | | results section. | + +--------+ + + + | PROTIME INR | STAT | 11/02/2018 | | Results for this | | | | 2:00 PM | | procedure are in the | | | | PDT | | results section. | + +--------+ + + + | COMPREHENSIVE | STAT | 11/02/2018 | | Results for this | | METABOLIC PANEL | | 2:00 PM | | procedure are in the | | | | PDT | | results section. | + +--------+ + + + | ECG 12 LEAD | STAT | 11/02/2018 | | Results for this | | | | 1:16 PM | | procedure are in the | | | | PDT | | results section. | + +--------+ + + + documented in this encounter Results ECG - EXTERNAL SCAN (11/06/2018 12:00 AM PDT) + + + | Narrative | Performed At | + + + | Ordered by an | | | unspecified provider. | | + + + POC Glucose (11/04/2018 11:37 AM PDT) + +---------+ + + + | Component | Value | Ref Range | Performed | Pathologist | | | | | At | Signature | + +---------+ + + + | Glucose, | 261 (H) | 70 - 110 mg/dL | [...] + + | [facility] | [address] | [place] [address] | [phone] | | [facility] | | | | + + + + + POC Glucose (11/04/2018 7:22 AM PDT) + +---------+ + + + | Component | Value | Ref Range | Performed | Pathologist | | | | | At | Signature | + +---------+ + + + | Glucose, | 137 (H) | 70 - 110 mg/dL | [...] + + | [facility] | [address] [address] | [place] [address] | [phone] | | [facility] | | | | + + + + + POC Glucose (11/03/2018 8:28 PM PDT) + +---------+ + + + | Component | Value | Ref Range | Performed | Pathologist | | | | | At | Signature | + +---------+ + + + | Glucose, | 324 (H) | 70 - 110 mg/dL | [...] + + | [facility] | [address] | [place] [address] | [phone] | | [facility] | | | | + + + + + POC Glucose (11/03/2018 4:30 PM PDT) + +---------+ + + + | Component | Value | Ref Range | Performed | Pathologist | | | | | At | Signature | + +---------+ + + + | Glucose, | 277 (H) | 70 - 110 mg/dL | [...] + + | [facility] | [address] | [place] [address] | [phone] | | [facility] | | | | + + + + + POC Glucose (11/03/2018 11:44 AM PDT) + +---------+ + + + | Component | Value | Ref Range | Performed | Pathologist | | | | | At | Signature | + +---------+ + + + | Glucose, | 275 (H) | 70 - 110 mg/dL | [...] + + | [facility] | [address] | [place] [address] | [phone] | | [facility] | | | | + + + + + EEG (11/03/2018 11:09 AM PDT) + + + | Narrative | Performed At | + + + | Saira Orellana MD 11/03/2018 11:10 Name:Geraldo Durbin | | | Lesa :1940 DATE OF SERVICE: 11/03/2018 | | | STUDY: ELECTROENCEPHALOGRAM INTRODUCTION: This is a | | | digital EEG recording with a record length of 20 minutes. The | | | patient is a 78 y.o. year-old male with a cerebrovascular accident. | | | BACKGROUND RHYTHM: The patient has a well defined background | | | pattern of 7-8 Hz. This activity is more prominent posteriorly, | | | symmetrical, and synchronous. It attenuates with eye opening and | | | returns with eye closing. Drowsiness is appreciated by the | | | attenuation and further slowing of the patient's background | | | activities. ABNORMAL POTENTIALS: No focal slow waves or | | | epileptiform discharges are seen. HYPERVENTILATION/PHOTIC | | | STIMULATION: Hyperventilation was not performed. Photic | | | stimulation was without significant effect. IMPRESSION: Abnormal | | | EEG demonstrating to presence of mild bilateral cerebral | | | dysfunction. Thank you for the opportunity to participate in the | | | care of this patient. Saira Orellana MD11/03/201811:10 | | | Electronically signed | | + + + POC Glucose (11/03/2018 7:26 AM PDT) + +---------+ + + + | Component | Value | Ref Range | Performed | Pathologist | | | | | At | Signature | + +---------+ + + + | Glucose, | 140 (H) | 70 - 110 mg/dL | [...] + + | [facility] | [address] | [place] [address] | [phone] | | [facility] | | | | + + + + + Phosphorus (11/03/2018 5:30 AM PDT) + +-------+ + + + | Component | Value | Ref Range | Performed | Pathologist | | | | | At | Signature | + +-------+ + + + | Phosphorus | 4.7 | 2.5 - 4.9 mg/dL | [facility] [...] + + | [facility] | [address] | [place] [address] | [phone] | | [facility] | | | | + + + + + Magnesium (11/03/2018 5:30 AM PDT) + +---------+ + + + | Component | Value | Ref Range | Performed | Pathologist | | | | | At | Signature | + +---------+ + + + | Magnesium | 1.6 (L) | 1.8 - 2.4 mg/dL | [...] + + | [facility] | [address] | [place] [address] | [phone] | | [facility] | | | | + + + + + Calcium, Ionized (11/03/2018 5:30 AM PDT) + + + + + + | Component | Value | Ref Range | Performed | Pathologist | | | | | At | Signature | + + + + + + | Calcium, | 1.15 (L) | 1.17 - 1.32 | [facility] | [...] + + | [facility] | [address] | [place] [address] | [phone] | | [facility] | | | | + + + + + Comprehensive Metabolic Panel (11/03/2018 5:30 AM PDT) + + + + + [...] + + + + | CO2 | 32 | 23 - 34 mmol/L | [facility] [...] + + + + | Glucose | 130 (H) | 70 - 110 mg/dL | [facility] | [facility] | | | | | | [facility] | | + + + + + + | BUN | 10 | 5 - 26 mg/dL | [facility] | [facility] | | | | | | [facility] | | + + + + + + | Creatinine | 0.93 | 0.70 - 1.40 | [facility] | | | | | mg/dL | [facility] | [facility] | | | | | | [facility] | | + + + + + + | eGFR if not | >60Comment: GLOMERULAR | >=60 | [facility] | | | | FILTRATION | mL/min/1.73m2 | [facility] | | | [facility] | RATE,ESTIMATED | | [facility] | | | | mL/min/1.11k8Jhfa than | | LABORATORY | | | [...] + + + + | Albumin | 2.5 (L) | 3.0 - 4.5 g/dL | [facility] | [facility] | | | | | | [facility] | | + + + + + + | Bilirubin | 0.5 | 0.0 - 1.2 mg/dL | [facility] [...] + + + + | AST | 16 | 0 - 38 U/L | [facility] | [facility] | [facility] | | | | | | [facility] | | + + + + + + | ALT | 17 | 16 - 63 U/L | [facility] | | | | | | [facility] | | + + + + + + | Alkaline | 73 | 46 - 116 U/L | [facility] | | | Phosphatase | | | [facility] | [facility] | | | | | | LAB[facility]ORY | | + + + + + + | Globulin | 5.5 (H) | 2.4 - 4.5 g/dL | [facility] | | | | [facility] | | | | | | [facility] | | + + + + + + | Albumin/Lizbeth | 0.5 (L) | 0.8 - 2.0 | [facility] | | | bulin Ratio | | | [facility] | | | | | [facility] | | | | | | [facility] | | + + + + + + | BUN/Creatin | 10.8 | 7.0 - 24.0 | [facility] | [...] + + | [facility] | [address] | [place] [address] | [phone] | | [facility] | | | | + + + + + CBC with Differential (11/03/2018 5:30 AM PDT) + + + + + + | Component | Value | Ref Range | Performed | Pathologist | | | | | At | Signature | + + + + + + | WBC | 5.7 | 4.6 - 10.5 K/uL | [facility] | | | | | | [facility] | | + + + + + + | RBC | 3.47 (L) | 4.36 - 5.83 | [facility] | | | | | M/uL | [facility] | | | | | | [facility] | | + + + + + + | Hemoglobin | 10.3 (L) | 13.1 - 17.4 | [facility] | | | | | g/dL | [facility] | | | | | | [facility] | | + + + + + + | Hematocrit | 32.1 (L) | 39.0 - 51.9 % | [facility] | | | | | | [facility] | | + + + + + + | MCV | 92.5 | 82.0 - 96.0 fL | [facility] | [facility] | [facility] | | | | | | [facility] | | + + + + + + | MCH | 29.7 | 27.7 - 32.3 pg | [facility] | | | | [facility] | | | | | | [facility] | | + + + + + + | MCHC | 32.1 | 32.0 - 36.9 | [facility] | | | | | g/dL | [facility] | | | | | | [facility] | | + + + + + + | RDW-CV | 18.1 (H) | 0.0 - 17.0 % | [facility] | | | | | [facility] | | | | | | [facility] | | + + + + + + | Platelet | 136 (L) | 150 - 450 K/uL | [...] + + + + | % | 21.9 (L) | 42.0 - 76.0 % | [facility] | | | Neutrophils | | | [facility] | [facility] | [facility] | | | | | | [facility] | | + + + + + + | % | 24.8 | 20.0 - 40.0 % | [facility] | | | Lymphocytes | | | [facility] | | | | | [facility] | | | | | | [facility] | | + + + + + + | % Monocytes | 22.8 (H) | 3.0 - 13.0 % | [facility] | | | | | | [facility] | | | | | | [facility] | | + + + + + + | % | 29.6 (H) | 0.0 - 7.0 % | [...] + + + | % Immature | 0.4 | 0.0 - 0.5 % | [facility] | | | Granulocyte | | | [facility] | | | [facility] | | | [facility] | | | | | | LAB[facility]ATORY | | + + + + + + | Absolute | 1.24 (L) | 2.80 - 7.70 | [facility] | | | Neutrophils | | K/uL | [facility] | | | | | | [facility] | | + + + + + + | Absolute | 1.40 | 1.20 - 3.30 | [facility] | | | Lymphocytes | | K/uL | [facility] | | | | | | [facility] | | + + + + + + | Absolute | 1.29 (H) | 0.00 - 0.80 | [facility] | | | Monocytes | | K/uL | [facility] | | | | | | [facility] | | + + + + + + | Absolute | 1.67 (H) | 0.00 - 0.70 | [facility] [...] | Absolute | 0.02 | 0.00 - 0.15 | [facility] | [...] + + | [facility] | [address] | [place] [address] | [phone] | | [facility] | | | | + + + + + POC Glucose (11/03/2018 4:21 AM PDT) + +---------+ + + + | Component | Value | Ref Range | Performed | Pathologist | | | | | At | Signature | + +---------+ + + + | Glucose, | 119 (H) | 70 - 110 mg/dL | [...] + + | [facility] | [address] | [place] [address] | [phone] | | [facility] | | | | + + + + + POC Glucose (11/02/2018 8:33 PM PDT) + +---------+ + + + | Component | Value | Ref Range | Performed | Pathologist | | | | | At | Signature | + +---------+ + + + | Glucose, | 235 (H) | 70 - 110 mg/dL | [...] + + | [facility] | [address] | [place] [address] | [phone] | | [facility] | | | | + + + + + Culture, Urine (11/02/2018 5:37 PM PDT) + + + + + + | Component | Value | Ref Range | Performed | Pathologist | | | | | At | Signature | + + + + + + | Culture | No significant | | [facility] | | | | organisms. | | [facility] | | | | [...] + + | [facility] | [address] | [place] [address] | [phone] | | [facility] | | | | + + + + + MRI Brain wo Contrast (11/02/2018 5:17 PM PDT) + + | Specimen | + + | | + + + + + | Impressions | Performed At | + + + | IMPRESSION: 1. Small right parietal cortical infarct with adjacent | [facility] | | thrombosed vessel. 2. Stable white matter disease. 3. Prior right | | | cerebellar lacunar infarct, unchanged. 4. Stable volume loss. 5. | | | Mild paranasal sinus mucosal thickening. 6. The results of the | | | study were discussed with JALYN CARIAS at 17:30 7. Dictated | | | by: Massimo Alba Electronically Signed by: Massimo Alba on | | | 11/02/2018 5:30 PM | | + + + + + + | Narrative | Performed At | + + + | EXAMINATION: MRI BRAIN WO CONTRAST HISTORY: tia COMPARISON | [facility] | | STUDY: July 24, 2018, July 15, 2018, September 30, 2018, October 02, 2018 | | | TECHNIQUE: Multiplanar multi sequence MRI of the brain is | | | performed without contrast. FINDINGS: Subtle area of right | | | parietal cortical diffusion restriction. In the adjacent sulcus | | | there is linear low signal intensity on the T2 gradient sequence | | | suggesting a thrombosed vessel. This appearance is new compared to | | | the July 2018 MRI. The reinoso-white matter interface is intact. No | | | acute intracranial hemorrhage, mass lesion, or midline shift. Basilar | | | cisterns are patent. Ventricles are symmetric. Sulci are mildly | | | prominent and out of proportion to the ventricles. Mild cerebellar | | | volume loss. Remote right cerebellar lacunar infarct. Major flow | | | voids are present. Mild confluent periventricular white matter T2 | | | hyperintensity. There are few patchy deep and subcortical white | | | matter hyperintensities, unchanged. Mild sphenoid and maxillary sinus | | | mucosal thickening.. The pituitary gland is unremarkable. Corpus | | | callosum is unremarkable. Brainstem is unremarkable. | | + + + + + | Procedure Note | + + | Osito, Rad Results In 11/02/2018 5:34 PM PDT EXAMINATION:MRI BRAIN WO | | CONTRASTHISTORY:tiaCOMPARISON STUDY:July 24, 2018, July 15, 2018, September 30, 2018, September | | 2018TECHNIQUE:Multiplanar multi sequence MRI of the brain is performed without | | contrast.FINDINGS:Subtle area of right parietal cortical diffusion restriction. In the | | adjacent sulcus there is linear low signal intensity on the T2 gradient sequence | | suggesting a thrombosed vessel. This appearance is new compared to the July 2018 | | MRI.The reinoso-white matter interface is intact.No acute intracranial hemorrhage, mass | | lesion, or midline shift.Basilar cisterns are patent.Ventricles are symmetric.Sulci are | | mildly prominent and out of proportion to the ventricles.Mild cerebellar volume loss. | | Remote right cerebellar lacunar infarct.Major flow voids are present.Mild confluent | | periventricular white matter T2 hyperintensity. There are few patchy deep and | | subcortical white matter hyperintensities, unchanged.Mild sphenoid and maxillary sinus | | mucosal thickening..The pituitary gland is unremarkable.Corpus callosum is | | unremarkable.Brainstem is unremarkable.IMPRESSION: IMPRESSION:1. Small right parietal | | cortical infarct with adjacent thrombosed vessel.2. Stable white matter disease.3. Prior | | right cerebellar lacunar infarct, unchanged.4. Stable volume loss.5. Mild paranasal | | sinus mucosal thickening.6. The results of the study were discussed with JALYN CARIAS | | at 17:307.Dictated by: Massimo Smith Signed by: Massimo Alba on | | 11/02/2018 5:30 PM | |Sulci are mildly prominent and out of proportion to the ventricles. | |Mild cerebellar volume loss. Remote right cerebellar lacunar infarct. | |Major flow voids are present. | |Mild confluent periventricular white matter T2 hyperintensity. There are few patchy deep a nd subcortical white matter hyperintensities, unchanged. | |Mild sphenoid and maxillary sinus mucosal thickening.. | |The pituitary gland is unremarkable. | |Corpus callosum is unremarkable. | |Brainstem is unremarkable. | | | |IMPRESSION: | |IMPRESSION: | |1. Small right parietal cortical infarct with adjacent thrombosed vessel. | |2. Stable white matter disease. | |3. Prior right cerebellar lacunar infarct, unchanged. | |4. Stable volume loss. | |5. Mild paranasal sinus mucosal thickening. | |6. The results of the study were discussed with JALYN CARIAS at 17:30 | |7. | | | |Dictated by: Massimo Alba | | | | | + + + +---------+ + + | Performing | Address | City/State/Zipcode | Phone Number | | Organization | | | | + +---------+ + + | [facility] | | | | + +---------+ + + Culture, Blood (11/02/2018 4:55 PM PDT) + + + + + [...] + + | [facility] | [address] | [place] [address] | [phone] | | [facility] | | | | + + + + + Lipid Panel (11/02/2018 4:55 PM PDT) + + + + + + | Component | Value | Ref Range | Performed | Pathologist | | | | | At | Signature | + + + + + + | Triglycerid | 108 | 30 - 200 mg/dL | [facility] | | | es | | | [facility] | | | | [facility] | | | | | | [facility]ATORY | | + + + + + + | Cholesterol | 71 | 0 - 200 mg/dL | [facility] | | | | | [facility] | | | | [facility] | | | | | | [facility] | | + + + + + + | HDL | 24 (L) | >=40 mg/dL | [facility] | | | | | | [facility] | | | | [facility] | | | | | | [facility] | | + + + + + + | Chol/HDL | 3.0 | <=5.0 | [facility] | | | Ratio | | | [facility] | | | | | | [facility] | | | | | | [facility]ORY | | + + + + + + | LDL, | 25Comment: LDL reference | <130 mg/dL | [facility] | | | Calculated | range: < 100 | | [facility] | | | | mg/dL [id number] - | | HOSPITAL | | | | 129 mg/dL Near | | LABORATORY | | | | [id number] - 159 mg/dL | | | | | | [id number] - 189 | | | | | | mg/dL High | | | | | | > 190 mg/dL Very | | | | | | High | | | | + + + + + + + + | Specimen | + + | Blood | + + + + + + + | Performing | Address | City/State/Zipcode | Phone Number | | Organization | | | | + + + + + | [facility] | [address] | [place] [address] | [phone] | | [facility] | | | | + + + + + POC Glucose (11/02/2018 4:39 PM PDT) + +---------+ + + + [...] + + | [facility] | [address] | [place] [address] | [phone] | | [facility] | | | | + + + + + Urinalysis with Microscopic with Culture if Indicated (11/02/2018 3:11 PM PDT) + + + + + [...] - 1.030 | [facility] | | | [place] | | | [facility] | | | [...] + + | [facility] | [address] | [place] [address] | [phone] | | [facility] | | | | + + + + + XR Chest AP Portable (11/02/2018 2:39 PM PDT) + + | Specimen | + + | | + + + + + | Impressions | Performed At | + + + | IMPRESSION: Left lower lobe pneumonia. Dictated by: Massimo | [facility] | | [place] | | | 3:09 PM | | + + + + + + | Narrative | Performed At | + + + | EXAMINATION: XR CHEST AP PORTABLE HISTORY: WEAKNESS | [facility] | | COMPARISON STUDY: None FINDINGS: The lungs are noted have hazy | | | opacity laterally at the left lung base. Mild hypoventilation. No | | | pleural effusion. No pneumothorax. Heart size is upper limits of | | | normal. No acute osseous process. | | + + + + + | Procedure Note | + + | Osito Rad Results In - 11/02/2018 3:12 PM PDT EXAMINATION:XR CHEST AP | | PORTABLEHISTORY:WEAKNESSCOMPARISON STUDY:NoneFINDINGS:The lungs are noted have hazy | | opacity laterally at the left lung base. Mild hypoventilation. No pleural effusion. | | No pneumothorax. Heart size is upper limits of normal. No acute osseous | | process.IMPRESSION: IMPRESSION:Left lower lobe pneumonia.Dictated by: Massimo | | Yolaectronically Signed by: Massimo Alba on 11/02/2018 3:09 PM | |COMPARISON STUDY: | |None | | | |FINDINGS: | |The lungs are noted have hazy opacity laterally at the left lung base. Mild hypoventilatio n. No pleural effusion. No pneumothorax. Heart size is upper limits of normal. No acute osseous process. | | | |IMPRESSION: | |IMPRESSION: | |Left lower lobe pneumonia. | | | |Dictated by: Massimo Alba | | | | | + + + +---------+ + + | Performing | Address | City/State/Zipcode | Phone Number | | Organization | | | | + +---------+ + + | [facility] | | | | + +---------+ + + CT Angiogram Head Neck Acute Stroke (11/02/2018 2:31 PM PDT) + + | Specimen | + + | | + + + + + | Impressions | Performed At | + + + | IMPRESSION: 1. No acute intracranial process is identified. 2. | [facility] | | Atherosclerosis of the carotid arteries without stenosis. 3. No | | | aneurysmal dilatation or dissection is identified. 4. Mild interval | | | increased maxillary and sphenoid sinus mucosal thickening. 5. | | | Enlarged mediastinal lymph nodes, unchanged. 6. Multilevel | | | degenerative change of the spine. 7. The results of the study were | | | discussed with ROZ SANCHES at 15:05 Dictated by: | | | Massimo Alba Electronically Signed by: Massimo Alba on | | | 11/02/2018 3:06 PM | | + + + + + + | Narrative | Performed At | + + + | EXAMINATION: CT ANGIOGRAM HEAD NECK ACUTE STROKE HISTORY: | [facility] | | Suspect Acute Stroke COMPARISON STUDY: October 02, 2018, October 12 | | | 2018 TECHNIQUE: 5 mm noncontrast brain imaging was performed. | | | 0.63 mm axial slices were acquired through the neck and brain | | | during the arterial phase of contrast. Multiplanar MIP | | | reconstruction was performed. Vessel analysis was performed on an | | | independent workstation. There is no post contrast reaction | | | DOSE REPORT: CTDIvol: 25.7 - 40.4 mGy. DLP: 1730 mGy-cm. Automated | | | exposure control was utilized. FINDINGS: No evidence of an acute | | | intracranial hemorrhage, mass lesion, or midline shift. The | | | reinoso-white matter interface is intact. The ventricles are symmetric. | | | Sulci are mildly prominent at the vertex. Basilar cisterns are | | | patent. Remote small right cerebellar lacunar infarct. Mild | | | periventricular white matter hypodensity. Paranasal sinuses and | | | mastoid air cells are clear with exception of mild maxillary sinus | | | mucosal thickening, increased compared to the previous exam. There | | | is also mild increased sphenoid sinus mucosal thickening. No | | | fracture. CTA evaluation demonstrates patency of the carotid and | | | vertebral arteries. Bilateral carotid atherosclerosis. The right | | | internal carotid artery has no stenosis. The left internal carotid | | | artery has no stenosis. Pericallosal arteries are patent. Anterior | | | cerebral arteries are patent. Anterior communicating artery is | | | patent. Middle cerebral arteries are patent. Posterior cerebral | | | arteries are patent. Posterior communicating arteries are patent. | | | Basilar artery is patent. Vertebral arteries are patent. | | | Temporomandibular joints are normal. The aerodigestive tract is | | | patent. The parotid glands are symmetric. The submandibular glands | | | are symmetric. Mediastinal enlarged lymph nodes. These are stable | | | compared to the previous exam. Lung apices are clear. There is | | | normal alignment of the cervical spine. Endplate degenerative changes | | | are noted C3 through C7. Endplate productive change C4 through C7. | | | Prior lens orbital surgery on the left. | | + + + + -------+ | Procedure Note | + -------+ | Osito, Rad Results In - 11/02/2018 3:10 PM PDT EXAMINATION:CT ANGIOGRAM HEAD NECK | | ACUTE STROKEHISTORY:Suspect Acute StrokeCOMPARISON STUDY:October 02, 2018, October 12 | | 2019TECHNIQUE:5 mm noncontrast brain imaging was performed. 0.63 mm axial slices were | | acquired through the neck and brain during the arterial phase of contrast. Multiplanar | | MIP reconstruction was performed. Vessel analysis was performed on an independent | | workstation. There is no post contrast reactionDOSE REPORT:CTDIvol: 25.7 - 40.4 mGy. | | DLP: 1730 mGy-cm. Automated exposure control was utilized.FINDINGS:No evidence of an | | acute intracranial hemorrhage, mass lesion, or midline shift.The reinoso-white matter | | interface is intact.The ventricles are symmetric.Sulci are mildly prominent at the | | vertex.Basilar cisterns are patent.Remote small right cerebellar lacunar infarct. Mild | | periventricular white matter hypodensity.Paranasal sinuses and mastoid air cells are | | clear with exception of mild maxillary sinus mucosal thickening, increased compared to | | the previous exam. There is also mild increased sphenoid sinus mucosal thickening.No | | fracture.CTA evaluation demonstrates patency of the carotid and vertebral | | arteries.Bilateral carotid atherosclerosis.The right internal carotid artery has no | | stenosis.The left internal carotid artery has no stenosis.Pericallosal arteries are | | patent.Anterior cerebral arteries are patent.Anterior communicating artery is | | patent.Middle cerebral arteries are patent.Posterior cerebral arteries are | | patent.Posterior communicating arteries are patent.Basilar artery is patent.Vertebral | | arteries are patent.Temporomandibular joints are normal.The aerodigestive tract is | | patent.The parotid glands are symmetric.The submandibular glands are | | symmetric.Mediastinal enlarged lymph nodes. These are stable compared to the previous | | exam.Lung apices are clear.There is normal alignment of the cervical spine.Endplate | | degenerative changes are noted C3 through C7. Endplate productive change C4 through | | C7.Prior lens orbital surgery on the left.IMPRESSION: IMPRESSION:1. No acute | | intracranial process is identified.2. Atherosclerosis of the carotid arteries without | | stenosis.3. No aneurysmal dilatation or dissection is identified.4. Mild interval | | increased maxillary and sphenoid sinus mucosal thickening.5. Enlarged mediastinal lymph | | nodes, unchanged.6. Multilevel degenerative change of the spine.7. The results of the | | study were discussed with ROZ SANCHES at 15:05Dictated by: Massimo | | [facility] | |Anterior cerebral arteries are patent. | |Anterior communicating artery is patent. | |Middle cerebral arteries are patent. | |Posterior cerebral arteries are patent. | |Posterior communicating arteries are patent. | |Basilar artery is patent. | |Vertebral arteries are patent. | |Temporomandibular joints are normal. | |The aerodigestive tract is patent. | |The parotid glands are symmetric. | |The submandibular glands are symmetric. | |Mediastinal enlarged lymph nodes. These are stable compared to the previous exam. | |Lung apices are clear. | |There is normal alignment of the cervical spine. | |Endplate degenerative changes are noted C3 through C7. Endplate productive change C4 throu gh C7. | |Prior lens orbital surgery on the left. | | | |IMPRESSION: | |IMPRESSION: | |1. No acute intracranial process is identified. | |2. Atherosclerosis of the carotid arteries without stenosis. | |3. No aneurysmal dilatation or dissection is identified. | |4. Mild interval increased maxillary and sphenoid sinus mucosal thickening. | |5. Enlarged mediastinal lymph nodes, unchanged. | |6. Multilevel degenerative change of the spine. | |7. The results of the study were discussed with ROZ SANCHES at 15:05 | | | | | |Dictated by: Massimo Alba | | | | | + -------+ + +---------+ + + | Performing | Address | City/State/Zipcode | Phone Number | | Organization | | | | + +---------+ + + | [facility] | | | | + +---------+ + + Differential, Manual (11/02/2018 2:10 PM PDT) + + + + + + | Component | Value | Ref Range | Performed | Pathologist | | | | | At | Signature | + + + + + + | % Segmented | 28.0 (L) | 42.0 - 76.0 % | [facility] | | | | | | [facility] | | | Neutrophils | | | [facility] | | | | | | [facility]ATORY | | + + + + + + | % | 26.0 | 20.0 - 40.0 % | [facility] | | | Lymphocytes | | | [facility] | | | | | | [facility] | | | | | | LABORATORY | | + + + + + + | % Monocytes | 15.0 (H) | 3.0 - 13.0 % | [facility] | | [facility] | | | | | | [facility]ATORY | | + + + + + + | % | 31.0 (H) | 0.0 - 7.0 % | [...] + + + + | Absolute | 2.13 (L) | 2.80 - 7.70 | [facility] | | | Segmented | | K/uL | [facility] | | | Neutrophils | | | [facility] | | | | | | LABORATORY | | + + + + + + | Absolute | 1.98 | 1.20 - 3.30 | [facility] | | | Lymphocytes | | K/uL | [facility] | | | | | | LABORATORY | | + + + + + + | Absolute | 1.14 (H) | 0.00 - 0.80 | [facility] | | | Monocytes | | K/uL | [facility] | | | | | | LABORATORY | | + + + + + + | Absolute | 2.36 (H) | 0.00 - 0.70 | [facility] [...] Ovalocytes | Slight (A) | (none) | [facility] | | | | | | [facility] | | | | | | LAB[facility]ATORY | | + + + + + + | Acanthocyte | Slight (A) | (none) | [facility] | | | s | | | [facility] | | | | | | LABORATORY | | + + + + + + + + | Specimen | + + | Blood | + + + + + | Narrative | Performed At | + + + | Occasional blast-like cell noted. | [facility] | [facility] | | | [facility]ATORY | + + + + + + + + | Performing | Address | City/State/Zipcode | Phone Number | | Organization | | | | + + + + + | [facility] | [address] | [place] [address] | [phone] | | [facility] | | | | + + + + + CBC with Differential (11/02/2018 2:10 PM PDT) + + + + + + | Component | Value | Ref Range | Performed | Pathologist | | | | | At | Signature | + + + + + + | WBC | 7.6 | 4.6 - 10.5 K/uL | [facility] | | | | [facility] | | | | | | [facility]ATORY | | + + + + + + | RBC | 3.50 (L) | 4.36 - 5.83 | [facility] | | | | | M/uL | [facility] | | | | | | LAB[facility]ATORY | | + + + + + + | Hemoglobin | 10.5 (L) | 13.1 - 17.4 | [facility] | | | | | g/dL | [facility] | | | | | | LABORATORY | | + + + + + + | Hematocrit | 31.9 (L) | 39.0 - 51.9 % | [facility] | | | | | | [facility] | | | | | | [facility]ATORY | | + + + + + + | MCV | 91.1 | 82.0 - 96.0 fL | [facility] [...] + + + + | RDW-CV | 18.0 (H) | 0.0 - 17.0 % | [facility] | | | | [facility] | | | | | | [facility]ATORY | | + + + + + + | Platelet | 145 (L) | 150 - 450 K/uL | [facility] | | | Count | | | [facility] | | | | [facility] | | | | | | LABORATORY | | + + + + + + | MPV | 11.1 | 9.4 - 12.4 fL | [facility] [...] + + | [facility] | [address] | [place] [address] | [phone] | | [facility] | | | | + + + + + Troponin I (11/02/2018 2:00 PM PDT) + +-------+ + + + [...] | cutoff point for the diagnosis of IN is 0.8 ng/mL for the Troponin I | | | method. | | + + + + + + + + | Performing | Address | City/State/Zipcode | Phone Number | | Organization | | | | + + + + + | [facility] | [address] | [place] [address] | [phone] | | [facility] | | | | + + + + + PTT (11/02/2018 2:00 PM PDT) + +--------+ + + + | Component | Value | Ref Range | Performed | Pathologist | | | | | At | Signature | + +--------+ + + + | aPTT | 19 (L) | 25 - 33 seconds | [facility] | | | | | [...] + + | [facility] | [address] | [place] [address] | [phone] | | [facility] | | | | + + + + + Protime INR (11/02/2018 2:00 PM PDT) + +-------+ + + + [...] Range: INR: 2.0-3.0 CONVENTIONAL ANTICOAGULATION | [facility] | | INR: 2.5-3.5 INTENSIVE ANTICOAGULATION | [facility]OSPITAL | | | LABORATORY | + + + + + + + + | Performing | Address | City/State/Zipcode | Phone Number | | Organization | | | | + + + + + | [facility] | [address] | [place] [address] | [phone] | | [facility] | | | | + + + + + Comprehensive Metabolic Panel (11/02/2018 2:00 PM PDT) + + + + + + | Component | Value | Ref Range | Performed | Pathologist | | | | | At | Signature | + + + + + + | Na | 137 | 132 - 143 | [facility] | | | | | mmol/L | [facility] | [facility] | | | | | | LABORATORY | | + + + + + + | K | 4.4 | 3.3 - 4.9 | [facility] | | | | | mmol/L | [facility] | [facility] | | | | | | LABORATORY | | + + + + + + | Cl | 102 | 95 - 108 mmol/L | [facility] | | | | [facility] | | | | | | [facility]ATORY | | + + + + + + | CO2 | 28 | 23 - 34 mmol/L | [facility] | | | | | | [facility]ORY | | + + + + + + | Anion Gap | 7 | 7 - 16 mmol/L | [facility] | | | | | | [facility] | | + + + + + + | Glucose | 241 (H) | 70 - 110 mg/dL | [facility] | | | | [facility] | [facility] | | | | | | [facility]ATORY | | + + + + + + | BUN | 9 | 5 - 26 mg/dL | [facility] | | | | [facility] | | | | | | [facility]ORY | | + + + + + + | Creatinine | 0.97 | 0.70 - 1.40 | [facility] | | | | | mg/dL | [facility] | | [facility] | | | | | | LAB[facility]ATORY | | + + + + + + | eGFR if not | >60Comment: GLOMERULAR | >=60 | [facility] | | | | FILTRATION | mL/min/1.73m2 | [facility] | | | [facility] | RATE,ESTIMATED | | [facility] | | | | mL/min/1.04m1Xmpu than | | LABORATORY | | | [...] + + + + | Albumin | 2.7 (L) | 3.0 - 4.5 g/dL | [facility] | | | | [facility] | | | | | | [facility]ATORY | | + + + + + + | Bilirubin | 0.6 | 0.0 - 1.2 mg/dL | [facility] | | | Total | | | [facility] | | | | [facility] | | | | | | LAB[facility]ATORY | | + + + + + + | Total | 8.5 | 6.6 - 8.5 g/dL | [facility] | | | Protein | | | [facility] | | | | | | [facility] | | | | | | LABORATORY | | + + + + + + | AST | 29 | 0 - 38 U/L | [facility] | | | | [facility] | | | | | | [facility]ATORY | | + + + + + + | ALT | 17 | 16 - 63 U/L | [facility] | | | | [facility] | | | | | | [facility]ATORY | | + + + + + + | Alkaline | 78 | 46 - 116 U/L | [facility] | | | Phosphatase | | | [facility] | | [facility] | [facility] | | | | | | LABORATORY | | + + + + + + | Globulin | 5.8 (H) | 2.4 - 4.5 g/dL | [facility] | | | | | [facility] | | | | | | [facility]ATORY | | + + + + + + | Albumin/Lizbeth | 0.5 (L) | 0.8 - 2.0 | [facility] | | | bulin Ratio | | | [facility] | | | | | | LAB[facility]ATORY | | + + + + + + | BUN/Creatin | 9.3 | 7.0 - 24.0 | [facility] | [...] + + | [facility] | [address] | [place] [address] | [phone] | | [facility] | | | | + + + + + ECG 12 lead (11/02/2018 1:16 PM PDT) + + | Specimen | + + | | + + + + + | Narrative | Performed At | + + + | Heart Rate: 85 | [facility] | | bpmQRS Interval: 100 msQT Interval: 364 msQTC Interval: 433 msP Camilla: | [facility] | | 20 degQRS Camilla: -22 degT Wave Camilla: 19 degP-R Interval: 184 msec- | | | OTHERWISE NORMAL ECG -SINUS RHYTHM [Remains]BORDERLINE LEFT AXIS | | | DEVIATION [Remains]NO SIGNIFICANT CHANGE | | |QRS Camilla: -22 deg | | |T Wave Camilla: 19 deg | | |P-R Interval: 184 msec | | |- OTHERWISE NORMAL ECG - | | |SINUS RHYTHM [Remains] | | |BORDERLINE LEFT AXIS DEVIATION [Remains] | | |NO SIGNIFICANT CHANGE | | + + + + +---------+ + + | Performing | Address | City/State/Zipcode | Phone Number | | Organization | | | | + +---------+ + + | [facility] | | | | + +---------+ + + documented in this encounter Visit Diagnoses + + | Diagnosis | + + | Generalized weakness - Primary Other malaise and fatigue | + + | Falls frequently Personal history of fall | + + | TIA (transient ischemic attack) Unspecified transient cerebral ischemia | + + documented in this encounter Administered Medications + +--------+ +-------+------+------+ | Medication Order | MAR | Action | Dose | Rate | Site | | | Action | Date | | | | + +--------+ +-------+------+------+ | albuterol-ipratropium 2.5-0.5 | Given | 11/05/19 | 3 mLs | | | | mg/3 mL nebulizer solution 3 mL | | 19 12:46 | | | | | 3 mL, Nebulization, EVERY 6 HOURS | | PM PDT | | | | | (4 times per day), First dose on | | | | | | | 11/02/18 at 1800 | | | | | | + +--------+ +-------+------+------+ +-------+ +-------+---+---+ | Given | 11/05/19 | 3 mLs | | | | | 19 7:11 | | | | | | AM PDT | | | | +-------+ +-------+---+---+ | Given | 11/05/19 | 3 mLs | | | | | 19 1:05 | | | | | | AM PDT | | | | +-------+ +-------+---+---+ +---+---+ | | | +---+---+ + +-------+ +-------+---+---+ | amLODIPine (NORVASC) tablet 10 | Given | 11/05/19 | 10 mg | | | | mg 10 mg, Oral, EVERY MORNING, | | 19 9:14 | | | | | First dose on Fri11/03/18 at 0900 | | AM PDT | | | | + +-------+ +-------+---+---+ +-------+ +-------+---+---+ | Given | 11/04/19 | 10 mg | | | | | 19 8:48 | | | | | | AM PDT | | | | +-------+ +-------+---+---+ +---+---+ | | | +---+---+ + +-------+ +--------+---+---+ | aspirin EC tablet 325 mg 325 | Given | 11/05/19 | 325 mg | | | | mg, Oral, DAILY, First dose on | | 19 9:15 | | | | | 11/03/18 at 0900 | | AM PDT | | | | + +-------+ +--------+---+---+ +-------+ +--------+---+---+ | Given | 11/04/19 | 325 mg | | | | | 19 8:47 | | | | | | AM PDT | | | | +-------+ +--------+---+---+ +---+---+ | | | +---+---+ + +-------+ +-------+---+---+ | atorvaSTATin (LIPITOR) tablet | Given | 11/05/19 | 40 mg | | | | 40 mg 40 mg, Oral, DAILY, First | | 19 9:15 | | | | | dose on 11/02/18 at 1630 | | AM PDT | | | | + +-------+ +-------+---+---+ +-------+ +-------+---+---+ | Given | 11/04/19 | 40 mg | | | | | 19 8:48 | | | | | | AM PDT | | | | +-------+ +-------+---+---+ | Given | 11/03/19 | 40 mg | | | | | 19 4:19 | | | | | | PM PDT | | | | +-------+ +-------+---+---+ +---+---+ | | | +---+---+ + +-------+ +-------+---+---+ | clopidogrel (PLAVIX) tablet 75 | Given | 11/03/19 | 75 mg | | | | mg 75 mg, Oral, DAILY, First | | 19 4:19 | | | | | dose on Fri11/02/18 at 1630 | | PM PDT | | | | + +-------+ +-------+---+---+ +---+---+ | | | +---+---+ + +-------+ +-------+---+---+ | clopidogrel (PLAVIX) tablet 75 | Given | 11/05/19 | 75 mg | | | | mg 75 mg, Oral, EVERY MORNING, | | 19 9:15 | | | | | First dose on Fri11/03/18 at 0900 | | AM PDT | | | | + +-------+ +-------+---+---+ +-------+ +-------+---+---+ | Given | 11/04/19 | 75 mg | | | | | 19 8:48 | | | | | | AM PDT | | | | +-------+ +-------+---+---+ + +---+ | | | + +---+ | docusate sodium (COLACE) | | | capsule 100 mg 100 mg, Oral, 2 | | | TIMES DAILY PRN, Constipation, | | | Starting 11/02/18 at 1601, 1st | | | line agent for constipation | | | relief., | | + +---+ | | | + +---+ + +-------+ +-------+---+---+ | DULoxetine (CYMBALTA) DR | Given | 11/05/19 | 60 mg | | | | capsule 60 mg 60 mg, Oral, EVERY | | 19 9:15 | | | | | MORNING, First dose on Fri | | AM PDT | | | | | 11/03/18 at 0900, Do not open | | | | | | | capsule., | | | | | | + +-------+ +-------+---+---+ +-------+ +-------+---+---+ | Given | 11/04/19 | 60 mg | | | | | 19 8:47 | | | | | | AM PDT | | | | +-------+ +-------+---+---+ +---+---+ | | | +---+---+ + +-------+ +--------+---+ + | heparin 5,000 units/mL | Given | 11/05/19 | 5,000 | | Abdomen- | | injection 5,000 Units 5,000 | | 19 7:44 | Units | | LLQ | | Units, Subcutaneous, EVERY 8 | | AM PDT | | | | | HOURS (3 times per day), First | | | | | | | dose on 11/02/18 at 1630 | | | | | | + +-------+ +--------+---+ + +-------+ +--------+---+ + | Given | 11/05/19 | 5,000 | | Abdomen- | | | 19 1:10 | Units | | LLQ | | | AM PDT | | | | +-------+ +--------+---+ + | Given | 11/04/19 | 5,000 | | Abdomen- | | | 19 3:43 | Units | | LUQ | | | PM PDT | | | | +-------+ +--------+---+ + +---+---+ | | | +---+---+ + +-------+ + +---+---+ | HYDROcodone-acetaminophen | Given | 11/05/19 | 1 tablet | | | | (NORCO) 5-325 mg per tablet 1 | | 19 8:02 | | | | | tablet 1 tablet, Oral, EVERY 6 | | AM PDT | | | | | HOURS PRN, Pain, Starting Mon | | | | | | | 11/02/18 at 2055 | | | | | | + +-------+ + +---+---+ +-------+ + +---+---+ | Given | 11/04/19 | 1 tablet | | | | | 19 8:34 | | | | | | PM PDT | | | | +-------+ + +---+---+ | Given | 11/04/19 | 1 tablet | | | | | 19 4:23 | | | | | | AM PDT | | | | +-------+ + +---+---+ +---+---+ | | | +---+---+ + +-------+ + +---+ + | insulin glargine (LANTUS) | Given | 11/04/19 | 35 Units | | Abdomen- | | injection (vial) 35 Units 35 | | 19 8:37 | | | RUQ | | Units, Subcutaneous, NIGHTLY, | | PM PDT | | | | | First dose on Fri11/02/18 at | | | | | | | 2100, For subcutaneous use only. | | | [...] +-------+ + +---+ + | Given | 11/03/19 | 35 Units | | Arm-Left | | | 19 9:03 | | | Upper | | | PM PDT | | | | +-------+ + +---+ + +---+---+ | | | +---+---+ + +-------+ +---------+---+ + | insulin lispro (humaLOG) | Given | 11/05/19 | 3 Units | | Abdomen- | | injection (vial) 0-6 Units 0-6 | | 19 11:58 | | | RLQ | | Units, Subcutaneous, 4 TIMES | | AM PDT | | | | | DAILY WITH MEALS & NIGHTLY, First | | | | | | | dose on Fri11/02/18 at 1700, | | | | | [...] | | | | AC, NPO, Daytime [id number] Use | | | | | | | NIGHT DOSE for doses scheduled: | | | | | | | HS, 3AM, Nighttime [id number] | | | | | | | If the BG is not checked before | | | | | | | the patient starts eating, do not | | | | | | | give correction insulin. If HS | | | | | | | insulin given, check blood | | | | | | | glucose at 3AM. Only for use with | | | | | | | U-100 insulin syringe., | | | | | | + +-------+ +---------+---+ + +-------+ +---------+---+ + | Given | 11/04/19 | 3 Units | | Abdomen- | | | 19 8:39 | | | LUQ | | | PM PDT | | | | +-------+ +---------+---+ + | Given | 11/04/19 | 3 Units | | Arm-Righ | | | 19 4:46 | | | t Upper | | | PM PDT | | | | +-------+ +---------+---+ + +---+---+ | | | +---+---+ + +-------+ +---------+---+---+ | iopamidol (ISOVUE-370) 370 | Given | 11/03/19 | 100 mLs | | | | mg/mL injection 100 mL 100 mL, | | 19 2:31 | | | | | Intravenous, ONCE PRN, Other, | | PM PDT | | | | | Starting 11/02/18 at 1431, For | | | | | | | 1 dose, Cat Scanner | | | | | | + +-------+ +---------+---+---+ +---+---+ | | | +---+---+ + +-------+ +---------+---+---+ | levothyroxine (SYNTHROID) | Given | 11/05/19 | 250 mcg | | | | tablet 250 mcg 250 mcg, Oral, | | 19 7:44 | | | | | DAILY BEFORE BREAKFAST, First | | AM PDT | | | | | dose on Fri11/03/18 at 0730, Give | | | | | | | before breakfast., | | | | | | + +-------+ +---------+---+---+ +-------+ +---------+---+---+ | Given | 11/04/19 | 250 mcg | | | | | 19 7:38 | | | | | | AM PDT | | | | +-------+ +---------+---+---+ +---+---+ | | | +---+---+ + +-------+ +-------+---+---+ | losartan (COZAAR) tablet 50 mg | Given | 11/05/19 | 50 mg | | | | 50 mg, Oral, EVERY MORNING, | | 19 9:15 | | | | | First dose on Fri11/03/18 at 0900 | | AM PDT | | | | + +-------+ +-------+---+---+ +-------+ +-------+---+---+ | Given | 11/04/19 | 50 mg | | | | | 19 8:47 | | | | | | AM PDT | | | | +-------+ +-------+---+---+ +---+---+ | | | +---+---+ + +---------+ +-----+ +---+ | magnesium sulfate 4 g/100 mL | New Bag | 11/04/19 | 4 g | 25 mL/hr | | | IVPB 4 g 4 g, Intravenous, | | 19 11:06 | | | | | Administer over 240 Minutes, | | AM PDT | | | | | ONCE, 11/03/18 at 1045, For 1 | | | [...] PRN, Nausea, Vomiting, | | | Starting 11/02/18 at 1601, | | | First line agent, | | + +---+ | | | + +---+ + +-------+ +-------+---+---+ | pantoprazole (PROTONIX) DR | Given | 11/05/19 | 20 mg | | | | tablet 20 mg 20 mg, Oral, DAILY | | 19 7:50 | | | | | BEFORE BREAKFAST, First dose on | | AM PDT | | | | | 11/03/18 at 0730, Do not cut | | | | | | | or crush., Indication: GERD | | | | | | + +-------+ +-------+---+---+ +-------+ +-------+---+---+ | Given | 11/04/19 | 20 mg | | | | | 19 8:46 | | | | | | AM PDT | | | | +-------+ +-------+---+---+ +---+---+ | | | +---+---+ + +-------+ +--------+---+---+ | pregabalin (LYRICA) capsule 300 | Given | 11/05/19 | 300 mg | | | | mg 300 mg, Oral, 2 TIMES DAILY, | | 19 9:15 | | | | | First dose on Fri11/02/18 at | | AM PDT | | | | | 2100 | | | | | | + +-------+ +--------+---+---+ +-------+ +--------+---+---+ | Given | 11/04/19 | 300 mg | | | | | 19 8:25 | | | | | | PM PDT | | | | +-------+ +--------+---+---+ | Given | 11/04/19 | 300 mg | | | | | 19 8:46 | | | | | | AM PDT | | | | +-------+ +--------+---+---+ +---+---+ | | | +---+---+ + +---------+ +---+ +---+ | sodium chloride 0.9% (NS) | New Bag | 11/04/19 | | 50 mL/hr | | | infusion at 50 mL/hr, | | 19 3:43 | | | | | Intravenous, CONTINUOUS, Starting | | PM PDT | | | | | Fri11/02/18 at 1630 | | | | | | + +---------+ +---+ +---+ +---------+ +---+ +---+ | New Bag | 11/03/19 | | 50 mL/hr | | | | 19 4:15 | | | | | | PM PDT | | | | +---------+ +---+ +---+ +---+---+ | | | +---+---+ + +-------+ +--------+---+---+ | tamsulosin (FLOMAX) capsule 0.4 | Given | 11/04/19 | 0.4 mg | | | | mg 0.4 mg, Oral, NIGHTLY, First | | 19 8:25 | | | | | dose on Fri11/02/18 at 2100, May | | PM PDT [...] +-------+ +--------+---+---+ +-------+ +--------+---+---+ | Given | 11/03/19 | 0.4 mg | | | | | 19 8:42 | | | | | | PM PDT | | | | +-------+ +--------+---+---+ +---+---+ | | | +---+---+ + +-------+ +--------+---+---+ | traZODone (DESYREL) tablet 100 | Given | 11/04/19 | 100 mg | | | | mg 100 mg, Oral, NIGHTLY, First | | 19 8:25 | | | | | dose on 11/02/18 at 2100 | | PM PDT | | | | + +-------+ +--------+---+---+ +-------+ +--------+---+---+ | Given | 11/03/19 | 100 mg | | | | | 19 8:42 | | | | | | PM [...]
--- OUTSIDE RECORDS SUMMARY | ~2019-02-17 | XMS | Encounter Summary ---
Demographics + + + | Address | [address] | | | [place] [address] | + + + | Home Phone | | + + + | Preferred Language | Unknown | + + + | Marital Status | | + + + | Confucianist Affiliation | 1025 | + + + | Race | Unknown | + + + | Ethnic Group | Unknown | + + + Author + + + | Author | [facility] | | | and [place] | + + + | Organization | [facility] | | | and [...] Team Providers + +------+ + | Care Maternal Fetal Physician Name | Role | Phone | + +------+ + | Horacio Silvestre DO | PCP | | + +------+ + Reason for Visit + + + | Reason | Comments | + + + | Follow-up | 1wk fU pneumonia | + + + Encounter Details +--------+---------+ + + + | Date | Type | Department | Care Team | Description | +--------+---------+ + + + | 08/03/ | Office | [facility] | Faraz Tejada, | History of recent | | 2019 | Visit | [facility] | DNP [address] | pneumonia (Primary | | | | [facility] [address] | [place] [address] | Dx); Dementia | | | | [address] [place], | [phone] | without behavioral | | | | [place] [address] | | disturbance, | | | | [phone] | | unspecified dementia | | | | | | type; Primary | | | | | | osteoarthritis | | | | | | involving multiple | | | | | | joints; Multilevel | | | | | | degenerative disc | | | | | | disease; History of | | | | | | kidney injury; | | | | | | Personal history of | | | | | | gout; Bilateral | | | | | | impacted cerumen | +--------+---------+ + + + Social History [...] + + + | Blood Pressure | 116/62 | 08/03/2018 1:22 PM | | | | | PDT | | + + + + + | Pulse | 82 | 08/03/2018 1:22 PM | | | | | PDT | | + + + + + | Temperature | - | - | | + + + + + | Respiratory Rate | 16 | 08/03/2018 1:22 PM | | | | | PDT | | + + + + + | Oxygen Saturation | 98% | 08/03/2018 1:22 PM | | | | | PDT | | + + + + + | Inhaled Oxygen | - | - | | | Concentration | | | | + + + + + | Weight | 93.4 kg (206 lb) | 08/03/2018 1:22 PM | | | | | PDT | | + + + + + | Height | 167.6 cm (5' 6") | 08/03/2018 1:22 PM | | | | | PDT | | + + + + + | Body Mass Index | 33.25 | 08/03/2018 1:22 PM | | | | | PDT [...] encounter Progress Notes Faraz Tejada, NENO - 08/03/2018 1:30 PM PDTFormatting of this note might be different fro m the original. Patient ID: Geraldo Mcfadden is a 78 y.o. year old male Chief Complaint Patient presents with Follow-up 1wk fU pneumonia Assessment and Plan: 1. History of recent pneumonia - Current oxygen saturation on room air is 98% - Patient denies respiratory deficits at this time. - Basic Metabolic Panel; Future - CBC no Differential; Future 2. Dementia without behavioral disturbance, unspecified dementia type - Short term memory deficits at this time. - Discussed various etiologies of dementia including; hypoxic, vascular, mixed, and Alzheim er's. - If this does not improved I recommend evaluation of a Mini-Mental State Exam at a subsequ ent appointment. 3. Primary osteoarthritis involving multiple joints 4. Multilevel degenerative disc disease - Avoid restarting opiates if possible. - Take over the counter ibuprofen as needed for breakthrough pain. - Discussed chronic pain and concepts of altered expectations regarding chronic pain and re setting baseline. 5. History of kidney injury - Renal function labs were within normal limits upon discharge from the hospital on 07/27/18 . - Basic Metabolic Panel; Future - CBC no Differential; Future 6. Personal history of gout - Increase hydration and support good kidney function. - If gout flares then this can be treated with a course of Colchicine as previously utilize d. 7. Bilateral impacted cerumen - Bilateral cerumen impactions noted. Right ear lavage was productive for moderate to larg e amount of cerumen and obstruction was resolved. Left ear lavage was slightly less product laith and there was a small amount of cerumen that remained in the ear canal after the irrigat ion. The patient tolerated the procedure fairly well. A curette was also utilized to remov e cerumen from the ear canal. Follow up in the clinic as needed if symptoms persist or worsen or as indicated based on la boratory results. Subjective: Ed is an 78-year-old male presenting to the clinic for a follow up after being t reated as an inpatient at [facility] due to Pneumonia and acute kidney injury. Ed is accompanied to his appointment by his today. He reports that he is feeling gra dual improvements since his discharge from the hospital. He still is fatigued, but is gradu ally gaining energy. He denies shortness of breath or other respiratory symptoms at this ti me. His oxygenation on room air at this time is 98%. His vital signs are all within normal limits at this time. Ed and his 's main concerns are related to his worsening memory, that seems to have go tten worse during his hospitalization and has continued. He frequently repeats the same que stion over and over again. He denies fever, chills, or diaphoresis since leaving the hospit al. He is also having some increased balance issues. He has had issues with ears and wax b uildup in the past and would be interested in having his ears checked today. Ed has a prolonged history of opioid use due to back pain and arthritis. Prior to his hos pitalization he was taking oxycodone 60 mg per dose. While he was hospitalized his was contacted by the Internal Medicine Physician, Dr. West and was informed that in his opinio n Ed's opiate use was slowly killing him. He felt that it was likely that the opiate use h ad likely lead to an aspiration that probably had been the initial cause of his pneumonia. They were strongly encouraged to stop use of narcotics for his pain. Ed currently rates his lower back pain 5/10 in severity. He has not had narcotic pain med ications in more than 10 days. He denies any dramatic increase in his pain since being off of the opiates. His reports that his cognition (other than memory deficits), strength, and voice strength all seem to have improved in the absence of opiate pain medications. When initially hospitalized, Ed had significantly impaired kidney function. On 07/24/18 nm s Glomerular Filtration Rate (GFR) fell to 19 with BUN of 40 mg/dL and Creatinine of 3.24 mg /dL (all showing impaired kidney function). By the time he discharged from the hospital on 07/27/18 his kidney function was back within normal limits after being provided with suppleme ntal fluids and antibiotics. Kidney function has not been rechecked since his discharge fro m the hospital. Ed has had intermittent flares of gout. He used to take Colchicine for this. He reports that he is not currently having a gout flare, but he is anxious about what can be done if he has another flare. Allergies Allergen Reactions Ambien [Zolpidem] Anaphylaxis Social [...] Use Smoking status: Former Smoker Packs/day: 3.00 Last attempt to quit: 1975 Years since quittin.3 Smokeless tobacco: Never Used Substance and Sexual Activity Alcohol use: No Drug use: No Sexual activity: Not on file Other Topics Concern Not on file Social History Narrative Not on file Current Outpatient Medications Medication Sig Dispense Refill amLODIPine (NORVASC) 10 MG tablet Take 1 tablet by mouth Daily. 30 tablet 1 aspirin 325 mg tablet Take 325 mg by mouth every morning. atorvaSTATin (LIPITOR) 10 mg tablet Take 1 tablet by mouth every morning. 90 tablet 3 cholecalciferol (VITAMIN D-3) 1000 units TABS Take 2,000 Units by mouth every morning. clopidogrel (PLAVIX) 75 mg tablet Take 75 mg by mouth every morning. cyanocobalamin (VITAMIN B-12) 1000 MCG tablet Take 1 tablet by mouth every morning. 90 tablet 3 DULoxetine (CYMBALTA) [address] capsule Take 1 capsule by mouth every morning. 90 capsul e 3 fluticasone (FLONASE) 50 mcg/nasal spray 2 sprays by Nasal route nightly as needed for Allergies. 16 g 1 insulin glargine (LANTUS) 100 units/mL injection (vial) Inject 18 Units under the skin nightly. 3 vial 5 insulin lispro (HUMALOG) 100 units/mL injection (vial) Inject 0-6 Units under the skin 4 times daily (with meals and nightly). 0 levothyroxine (SYNTHROID) 75 MCG tablet Take 3 tablets by mouth every morning (before b reakfast) for 30 days. 90 tablet 0 loperamide (IMODIUM) 2 mg capsule Take 2 mg by mouth 4 times daily as needed for Diarrh ea. omeprazole (PRILOSEC) 20 mg capsule Take 1 capsule by mouth every morning (before break fast). 90 capsule 1 polyethylene glycol (MIRALAX) packet Take 1 diluted packet by mouth Daily as needed for Constipation. 0 tamsulosin (FLOMAX) 0.4 mg CAPS Take 1 capsule by mouth nightly. 90 capsule 3 testosterone (ANDRODERM) 2 mg/[address] 1 patch onto the skin nightly. 60 patch 1 traZODone (DESYREL) 50 mg tablet Take 2 tablets by mouth nightly. 90 tablet 3 urea (CARMOL) 40 % CREA Apply to affected areas daily 120 g 5 No current facility-administered medications for this visit. Review of Systems See HPI. Objective: Vitals: BP 116/62 | Pulse 82 | Resp 16 | Ht 1.676 m (5' 6") | Wt 93.4 kg (206 lb) | SpO2 98% | BMI 33.25 kg/m Physical Exam Constitutional: He is oriented to person, place, and time. He appears well-developed and we ll-nourished. No distress. HENT: Right Ear: External ear normal. No drainage. Left Ear: External ear normal. No drainage. Bilateral cerumen impactions noted. Right ear lavage was productive for moderate to large amount of cerumen and obstruction was resolved. Left ear lavage was slightly less productiv e and there was a small amount of cerumen that remained in the ear canal after the irrigatio n. The patient tolerated the procedure fairly well. Cardiovascular: Normal rate, regular rhythm and normal heart sounds. No murmur heard. Pulmonary/Chest: Effort normal and breath sounds normal. No respiratory distress. He has no wheezes. He has no rales. Musculoskeletal: Gait noted to be somewhat unsteady on observation. Neurological: He is alert and oriented to person, place, and time. Skin: Skin is warm and dry. He is not diaphoretic. Central line site dressing to right subclavicular region was removed in clinic today. No d rainage, erythema, or increased heat noted at the site. Psychiatric: He has a normal mood and affect. His speech is normal and behavior is normal. Thought content normal. Cognition and memory are impaired. He exhibits abnormal recent memor y. He exhibits normal remote memory. This note was transcribed using voice recognition [...] [place] | | | | | | [address] | | | | | | [phone] | | | | | | | | +--------+---------+ + + + | 02/26/ | Office | Urology | Lillie Fowler | | | 2019 | Visit | | LILLIE Lopez [address] | | | | | | [address] | | | | | | [place] | | | | | | [address] | | | | | | [phone] | | | | | | | | +--------+---------+ + + + | 03/16/ | Office | Neurology | Theresa, | | | 2018 | Visit | | Karyanne, GOVERNMENT AFFAIRS RESEARCHER [address] | | [address] [place], | | | | | | [place] [address] | | | | | | [phone] | | | | | | | | +--------+---------+ + + + | 04/12/ | Office | Primary Care | Massimo Ramos | | | 2019 | Visit | | MD Fer [address] | | | | | | [address] [place] | | | | | | [address] | | | | | | | | +--------+---------+ + + + | 10/03/ | Office | Neurology | Fabián Carias MD | | | 2019 | Visit | | [address] | | | | | | [place] | | | | | | [address] | | | | | | | | +--------+---------+ + + + + +------+--------+ + + | Name | Type | Priori | Associated Diagnoses | Order Schedule | | | | ty | | | + +------+--------+ + + | CBC no Differential | Lab | Routin | History of recent | 1 Occurrences | | | | e | pneumonia History | starting 08/04/2018 | | | | | of kidney injury | until 08/05/2019 | + +------+--------+ + + documented as [...] | | | care | | | Rn Paralegal-C | | | | | | | [...] | | | care | | | Rn Paralegal-C | | | | | | | [...] | | | care | | | Rn Paralegal-C | | | | | | | [...] | | | care | | | Rn Paralegal-C | | | | | | | linical | + +--------+ +---+-----+ + + + | Note: Pt will | | check CBG's daily x1 | | Pt will take Lantis as | | prescribed | + + documented as of this encounter Visit Diagnoses + + | Diagnosis | + + | History of recent pneumonia - Primary | + + | Dementia without behavioral disturbance, unspecified dementia type (HCC) | + + | Primary osteoarthritis involving multiple joints | + + | Multilevel degenerative disc disease Degeneration of intervertebral disc, site | | unspecified | + + | History of kidney injury Personal history of other injury | + + | Personal history of gout Personal history of other endocrine, metabolic, and immunity | | disorders | + + | Bilateral impacted cerumen Impacted cerumen | + + documented in this encounter Additional Health Concerns + + + + | Infection | Noted Time | Resolved Time | + + + + | Methicillin-resistant Staphylococcus aureus | 07/20/2018 4:00 PM | | | | PDT | | + + + + documented as of this encounter
--- OUTSIDE RECORDS SUMMARY | ~2019-02-17 | XMS | Encounter Summary ---
Demographics + + + | Address | [address] | | | [place] [address] | + + + | Home Phone [...] Team Providers + +------+ + | Care Compugraph Operator Name | Role | Phone | [...] [facility] | DO [address] [place] | | | | | [facility] [address] | [facility], [place] | | | | | [address] [place], | [address] | | | | | [place] [address] | [phone] | | | | | [phone] | | | +--------+ + + + [...] [place] | | | | | | [address] | | | | | | [phone] | | | | | | | | +--------+---------+ + + + | 02/26/ | Office | Urology | Lillie Fowler | | | 2018 | Visit | | LILLIE Lopez [address] | | | | | [address] | | | | | | [place] | | | | | | [address] | | | | | | [phone] | | | | | | | | +--------+---------+ + + + | 03/16/ | Office | Neurology | Theresa, | | | 2018 | Visit | | SHONDA Mck[address]ney [address] | | | | [address] [place], | | | | | | [place] [address] | | | | | | [phone] | | | | | | | | +--------+---------+ + + + | 04/12/ | Office | Primary Care | Massimo Ramos | | | 2019 | Visit | | MD Fer [address] | | | | | | [place] | | | | | | [address] | | | | | | | | +--------+---------+ + + + | 10/03/ | Office | Neurology | Fabián Carias MD | | | 2019 | Visit | | [address] | | | | | | [place] | | | | | | [address] | | | | | | | [...] | | | care | | | Coordinator Hotels-C | | | | | | | [...] | | | care | | | Coordinator Hotels-C | | | | | | | [...] | | | care | | | Coordinator Hotels-C | | | | | | | [...] | | | care | | | Coordinator Hotels-C | | | | | | | linical | + +--------+ +---+-----+ + + + | Note: Pt will | | check CBG's daily x1 | | Pt will take Lantis as | | prescribed | + + documented as of this encounter Visit Diagnoses Not on filedocumented in this encounter"
--- OUTSIDE RECORDS SUMMARY | ~2019-02-17 | XMS | Encounter Summary ---
Demographics + + + | Address | [address] | | | [place] [address] | + + + | Home Phone | | + + + | Preferred Language | Unknown | + + + | Marital Status | | + + + | Cheondoism Affiliation | 1025 | + + + [...] Team Providers + +------+ + | Care Pantry Goods Maker Name | Role | Phone | + +------+ + PCP | Unavailable | + +------+ + Encounter Details +--------+ + + + + | Date | Type | Department | Care Team | Description | +--------+ + + + + | 07/01/ | Hospital | [facility] | Ryan Gutiérrez | | | 2011 | Encounter | [facility] | MD [address] | | | | | [address] | [address] | | | | | [place], [place] | [place] [address] | | | | | [address] | [phone] | | | | | [phone] | | | +--------+ + + + [...] [place] | | | | | | [address] | | | | | | [phone] | | | | | | | | +--------+---------+ + + + | 02/26/ | Office | Urology | Lillie Fowler | | | 2018 | Visit | | LILLIE Lopez [address] | | | | | | [address] | | | | | | [place], [place] | | | | | | [address] | | | | | | [phone] | | | | | | | | +--------+---------+ + + + | 03/16/ | Office | Neurology | Theresa, | | | 2018 | Visit | | SHONDA M[address] | | | | | [address] [place], | | | | | | [place] [address] | | | | | | [phone] | | | | | | | | +--------+---------+ + + + | 04/12/ | Office | Primary Care | Massimo Ramos Pedro Luis | | | 2019 | Visit | | MD Fer [address] | | | | | | [place] | | | | | | [address] | | | | | | | | +--------+---------+ + + + | 10/03/ | Office | Neurology | Fabián Carias MD | | | 2019 | Visit | | [address] | | | | | | [place] | | | | | | [address] | | | | | | | [...] | | | care | | | Presales Senior Specialist-C | | | | | | [...] | | | care | | | Presales Senior Specialist-C | | | | | | [...] | | | care | | | Presales Senior Specialist-C | | | | | | [...] | | | care | | | Presales Senior Specialist-C | | | | | | | linical | + +--------+ +---+-----+ + + + | Note: Pt will | | check CBG's daily x1 | | Pt will take Lantis as | | prescribed | + + documented as of this encounter Visit Diagnoses Not on filedocumented in this encounter"
--- OUTSIDE RECORDS SUMMARY | ~2019-02-17 | XMS | Encounter Summary ---
Demographics + + + | Address | [address] | | | [place] [address] | + + + | Home Phone | | + + + | Preferred Language | Unknown | + + + | Marital Status | | + + + | Yazidism Affiliation | 1025 | + + + | Race | Unknown | + + + | Ethnic Group | Unknown | + + + Author + + + | Author | [facility] | | | and [place] | + + + | Organization | [facility] | | | [...] Team Providers + +------+ + | Care Playground Official Name | Role | Phone | + [...] | [address] | [place] | | | | | [place] | [address] | | | | | [address] | | | | | | [phone] | | | +--------+ + + + [...] Jalyn Carias MD - 04/10/2015 11:21 AM [facility] Dictating Practitioner: JALYN CARIAS MD Patient Name: LISA MCFADDEN Patient Date of : 1940 Visit Number: [id number] DISCHARGE SUMMARY The patient was seen at [...] or fasciculations. CEREBELLAR EXAMINATION: Able to perform gnipja-[id number] with no significant tremors. SENSORY EXAMINATION: Mildly [...] REFUGIO Jovel [place] 2[place] at the [place]. Followup with me Dr. Farzad Carias in 5-6 weeks. Otherwise the patient is neurologically stable. The patient was given copies of his above tests. Many thanks for allowing me to participate in the care of this patient. Cc: REFUGIO [place] [id number] / [id number] Dictation Date/Time: April 11, 2015 06:04PM Raw Stock Machine Loader Date/Time: April 12, 2015 10:51AM Authenticated and Edited by Jayln Carias MD On 04/12/15 8:51:05 PM [facility] Signed and Approved by: JALYN CARIAS MD [...] [place] | | | | | | [address] | | | | | | [phone] | | | | | | | | +--------+---------+ + + + | 02/26/ | Office | Urology | Lillie Fowler | | | 2018 | Visit | | LILLIE Lopez [address] | | | | | | [address] | | | | | | [place] | | | | | | [address] | | | | | | [phone] | | | | | | | | +--------+---------+ + + + | 03/16/ | Office | Neurology | Theresa, | | | 2018 | Visit | | SHONDA [address] | | | | [address] [place], | | | | | | [place] [address] | | | | | | [phone] | | | | | | | | +--------+---------+ + + + | 04/12/ | Office | Primary Care | Massimo Ramos | | | 2019 | Visit | | MD Fer [address] | | | | | | [place] | | | | | | [address] | | | | | | | | +--------+---------+ + + + | 10/03/ | Office | Neurology | Jalyn Carias MD | | | 2020 | Visit | | [address] | | | | | | [place] | | | | | | [address] | | | | | | | [...] | | | care | | | Principal Statistical Scientist-C | | | | | | | [...] | | | care | | | Principal Statistical Scientist-C | | | | | | | [...] | | | care | | | Principal Statistical Scientist-C | | | | | | | [...] | | | care | | | Principal Statistical Scientist-C | | | | | | | [...] at 7:15 p.m. D: | | 04/10/2015Job#: [id number] Read By: MASSIMO NUNEZ MD Released By: [...] stenosis identified. | | | Job No.: [id number] Read By: MASSIMO NUNEZ MD | | [...] | | significant stenosis identified. Job No.: [id number] Read By: MASSIMO Fung | | MD [...] | | | | | |Job No.: [id number] | | | |Read By: MASSIMO NUNEZ [...] mIU/L | LAB | | | | [facility]. | | | | | | [...]
--- OUTSIDE RECORDS SUMMARY | ~2019-02-17 | XMS | Encounter Summary ---
Demographics + + + | Address | [address] | | | [place] [address] | + + + | Home Phone | | + + + | Preferred Language | Unknown | + + + | Marital Status | | + + + | Confucianism Affiliation | 1025 | + + + | Race | Unknown | + + + | Ethnic Group | Unknown | + + + Author + + + | Author | [facility] | | | and [place] | + + + | Organization | [facility] | | [...] Team Providers + +------+ + | Care Promotions Coordinator Name | Role | Phone | + +------+ + | Ryan Gutiérrez MD | PCP | | + +------+ + Encounter Details +--------+ + + + + | Date | Type | Department | Care Team | Description | +--------+ + + + + | 10/13/ | Hospital | [facility] | Luciano Diana | | | 2016 | Encounter | [facility] | [address] | | | | | [address] | [address] | | | | | DR [place], [place] | [place] [address] | | | | | [address] | [phone] | | | | | [phone] | | | +--------+ + + + [...] [place] | | | | | | [address] | | | | | | [phone] | | | | | | | | +--------+---------+ + + + | 02/26/ | Office | Urology | Lillie Fowler | | | 2018 | Visit | | LILLIE Lopez [address] | | | | | | [address] | | | | | | [place] | | | | | | [address] | | | | | | [phone] | | | | | | | | +--------+---------+ + + + | 03/16/ | Office | Neurology | Theresa, | | | 2018 | Visit | | SHONDA Mck[address]ney [address] | | | | | [address] [place], | | | | | | [place] [address] | | | | | | [phone] | | | | | | | | +--------+---------+ + + + | 04/12/ | Office | Primary Care | Massimo Ramos | | | 2019 | Visit | | MD Fer [address] | | | | | | [place] | | | | | | [address] | | | | | | | | +--------+---------+ + + + | 10/03/ | Office | Neurology | Fabián Carias MD | | | 2019 | Visit | | [address] | | | | | | [place] | | | | | | [address] | | | | | | | [...] | | | care | | | Bereavement Coordinator-C | | | | | | [...] | | | care | | | Bereavement Coordinator-C | | | | | | [...] | | | care | | | Bereavement Coordinator-C | | | | | | [...] | | | care | | | Bereavement Coordinator-C | | | | | | [...] + | URINALYSIS WITH | STAT | 10/14/2015 | | Results for this | | MICROSCOPIC WITH | | 1:48 PM | | procedure are in the | | CULTURE IF INDICATED | | PDT | | results section. | + +--------+ + + + | CBC W/AUTO | STAT | 10/14/2015 | | Results for this | | DIFFERENTIAL | | 12:51 PM | | procedure are in the | | | | PDT | | results section. | + +--------+ + + + | SEDIMENTATION RATE | STAT | 10/14/2015 | | Results for this | | | | 12:51 PM | | procedure are in the | | | | PDT | | results section. | + +--------+ + + + | LIPASE | STAT | 10/14/2015 | | Results for this | | | | 12:51 PM | | procedure are in the | | | | PDT | | results section. | + +--------+ + + + | COMPREHENSIVE | STAT | 10/14/2015 | | Results for this | | METABOLIC PANEL | | 12:51 PM | | procedure are in the | | | | PDT | | results section. | + +--------+ + + + | CT ABDOMEN PELVIS W | Routin | 10/14/2015 | | Results for this | | CONTRAST | e | 11:59 AM | | procedure are in the | | | | PDT | | results section. | + +--------+ + + + documented in this encounter Results Urinalysis with Microscopic with Culture if Indicated (10/14/2015 1:48 PM PDT) + + + + + [...] - 1.030 | EXTERNAL | | | [place], | | | LAB | | | [...] + + + | WBC UA | 3-5 | </= 5 /HPF | EXTERNAL | [...] + + + | MUCUS UA | FEW | NONE SEEN /HPF | EXTERNAL | [...] | + +---------+ + + Sedimentation Rate (10/14/2015 12:51 PM PDT) + +-------+ + + + | Component | Value | Ref Range | Performed | Pathologist | | | | | At | Signature | + +-------+ + + + | ESR | 11 | <=20 mm/h | EXTERNAL | | [...] | | + +---------+ + + Lipase (10/14/2015 12:51 PM PDT) + +-------+ + + + | Component | Value | Ref Range | Performed | Pathologist | | | | | At | Signature | + +-------+ + + + | Lipase | 228 | 73 - 393 U/L | EXTERNAL [...] + +---------+ + + Comprehensive Metabolic Panel (10/14/2015 12:51 PM PDT) + +-------+ + + + | Component | Value | Ref Range | Performed | Pathologist | | | | | At | Signature | + +-------+ + + + | Sodium | 136 | 132 - 143 | EXTERNAL | [...] +-------+ + + + | CO2 | 24 | 23 - 34 mmol/L | EXTERNAL [...] +-------+ + + + | Glucose | 101 | 70 - 110 mg/dL | EXTERNAL | | | | | | LAB | | + +-------+ + + + | BUN, Bld | 21 | 5 - 26 mg/dL | EXTERNAL | | | | | | LAB | | + +-------+ + + + | Creatinine | 1.11 | 0.70 - 1.40 | EXTERNAL | | | | | mg/dL | LAB | | + +-------+ + + + | BUN/Creatin | 18.9 | 7.0 - 24.0 | EXTERNAL | | | ine Ratio | | RATIO | LAB | | + +-------+ + + + | GFR | 60 | >=60 | EXTERNAL | | | ESTIMATE | | mL/min/1.73m2 | LAB | | + +-------+ + + + | Bilirubin, | 0.4 | <=1.2 mg/dL | EXTERNAL | | | Total | | | LAB | | + +-------+ + + + | Protein, | 8.1 | 6.6 - 8.5 g/dL | EXTERNAL | | | Total | | | LAB | | + +-------+ + + + | Albumin | 4.1 | 3.0 - 4.5 g/dL | EXTERNAL | | | | | | LAB | | + +-------+ + + + | Alkaline | 78 | 46 - 116 U/L | EXTERNAL | | | Phosphatase | | | LAB | | + +-------+ + + + | ALT, | 53 | 16 - 63 U/L | EXTERNAL | | | External | | | LAB | | + +-------+ + + + | AST, | 39 | <=38 U/L | EXTERNAL | | [...] +---------+ + + CBC w/ Auto Differential (10/14/2015 12:51 PM PDT) + +-------+ + + + | Component | Value | Ref Range | Performed | Pathologist | | | | | At | Signature | + +-------+ + + + | WBC | 7.9 | 4.6 - 10.5 | EXTERNAL | | | | | 1000/mm3 | LAB | | + +-------+ + + + | RBC | 4.1 | 4.36 - 5.83 | EXTERNAL | | | | | mil/mm3 | LAB | | + +-------+ + + + | HGB, | 12.8 | 13.1 - 17.4 | EXTERNAL | | | External | | g/dL | LAB | | + +-------+ + + + | HCT, | 38.9 | 39.0 - 51.9 % | EXTERNAL | | | External | | | LAB | | + +-------+ + + + | MCV | 95 | 82 - 96 fl | EXTERNAL | | | | | | LAB | | + +-------+ + + + | MCH | 31.2 | 27.7 - 32.3 pg | EXTERNAL | | | | | | LAB | | + +-------+ + + + | MCHC | 32.9 | 32.0 - 36.9 | EXTERNAL | | | | | g/dL | LAB | | + +-------+ + + + | RDW-CV | 15.5 | <=17.0 % | EXTERNAL | | | | | | LAB | | + +-------+ + + + | RDW-SD | 51.8 | 34.0 - 57.0 fL | EXTERNAL | | | | | | LAB | | + +-------+ + + + | Platelet | 171 | 150 - 450 | EXTERNAL | | | Count | | 1000/mm3 | LAB | | | Plasma | | | | | + +-------+ + + + | MPV | 10.2 | 9.4 - 12.4 FL | EXTERNAL | | | | | | LAB | | + +-------+ + + + | % Segmented | 49.6 | 42.0 - 76.0 % | EXTERNAL | | | | | | LAB | | | Neutrophils | | | | | + +-------+ + + + | % | 31.9 | 20.0 - 40.0 % | EXTERNAL | | | Lymphocytes | | | LAB | | + +-------+ + + + | % Monocytes | 15.8 | 3.0 - 13.0 % | EXTERNAL | | | | | | LAB | | + +-------+ + + + | % | 2.3 | 0.0 - 7.0 % | EXTERNAL | | | Eosinophils | | | LAB | | + +-------+ + + + | % Basophils | 0.4 | 0.0 - 2.0 % | EXTERNAL | | | | | | LAB | | + +-------+ + + + | Absolute | 3.93 | 2.80 - 7.70 | EXTERNAL | | | Neutrophils | | 1000/mm3 | LAB | | + +-------+ + + + | Absolute | 2.53 | 1.20 - 3.30 | EXTERNAL | | | Lymphocytes | | 1000/mm3 | LAB | | + +-------+ + + + | Absolute | 1.25 | 0.00 - 0.80 | EXTERNAL | [...] + + CT Abdomen Pelvis w Contrast (10/14/2015 11:59 AM PDT) + + | Specimen | + + | | + + + + + | Narrative | Performed At | + + + | ORIGINAL CT ABDOMEN AND PELVIS WITH CONTRAST: | | | HISTORY: Kassy-ileostomy pain radiating to right flank. | | | COMPARISON: 08/18/2015. TECHNIQUE: 5 mm axial slices were | | | acquired through the abdomen and pelvis with contrast. 125 mL | | | ISOVUE-300 was administered intravenously. No postcontrast reaction. | | | DOSE REPORT: DLP 1140.77 mGy-cm. FINDINGS: Lung bases are | | | clear. Heart size is stable. No pericardial effusion. There is a | | | small hiatal hernia. Coronary artery calcifications are present. | | | The liver is diffusely decreased in density. There is change of | | | prior cholecystectomy. The pancreas and spleen are unremarkable. | | | Adrenal glands are symmetric. Kidneys enhance symmetrically. 1.4 | | | cm renal hypodensity is unchanged. No hydronephrosis. No | | | hydroureter. No bladder wall thickening. Prostate gland has coarse | | | calcifications and is stable in size. There is inflammatory | | | change surrounding the distal sigmoid colon just upstream from the | | | anastomosis. There are several diverticula in this area. Cecal | | | diverticula are also present. Diverting ileostomy is present. No | | | evidence of bowel obstruction. There is no free air. No | | | pathologically enlarged lymph nodes. The aorta is normal in course | | | and caliber. There is atherosclerosis. No aneurysmal dilatation. | | | No acute bone process. Multilevel degenerative change is noted. | | | IMPRESSION: 1. Findings suggestive of recurrent diverticulitis | | | just upstream from the distal sigmoid anastomosis. 2. Postsurgical | | | change of diverting ileostomy. 3. Hepatic steatosis. 4. Small hiatal | | | hernia. 5. The results of the study were discussed with Dr. Diana at | | | 4:50 p.m. JOB #: [id number] Read By: MASSIMO Hughes | | Antonieta NUNEZ MD Released By: MASSIMO NUNEZ MD Date: | | | 10/15/2015 11:45 | | + + + + + | Procedure Note | + + | Osito, Rad Results In - 02/12/2017 10:58 PM PST OR[address]AL CT ABDOMEN AND PELVIS | | WITH CONTRAST: HISTORY:Kassy-ileostomy pain radiating to right flank. | | COMPARISON:08/18/2015. TECHNIQUE:5 mm axial slices were acquired through the abdomen and | | pelvis with contrast. 125 mL ISOVUE-300 was administered intravenously. No | | postcontrast reaction. DOSE REPORT:DLP 1140.77 mGy-cm. FINDINGS:Lung bases are clear. | | Heart size is stable. No pericardial effusion. There is a small hiatal hernia. | | Coronary artery calcifications are present. The liver is diffusely decreased in density. | | There is change of prior cholecystectomy. The pancreas and spleen are unremarkable. | | Adrenal glands are symmetric. Kidneys enhance symmetrically. 1.4 cm renal hypodensity | | is unchanged. No hydronephrosis. No hydroureter. No bladder wall thickening. | | Prostate gland has coarse calcifications and is stable in size. There is inflammatory | | change surrounding the distal sigmoid colon just upstream from the anastomosis. There | | are several diverticula in this area. Cecal diverticula are also present. Diverting | | ileostomy is present. No evidence of bowel obstruction. There is no free air. No | | pathologically enlarged lymph nodes. The aorta is normal in course and caliber. There | | is atherosclerosis. No aneurysmal dilatation. No acute bone process. Multilevel | | degenerative change is noted. IMPRESSION:1. Findings suggestive of recurrent | | diverticulitis just upstream from the distal sigmoid anastomosis.2. Postsurgical change | | of diverting ileostomy.3. Hepatic steatosis.4. Small hiatal hernia.5. The results of the | | study were discussed with Dr. Diana at 4:50 p.m. JOB #: [id number] Read By: | | MASSIMO NUNEZ MD Released By: MASSIMO NUNEZ, MDDate: 10/15/2015 11:45 | | | |The liver is diffusely decreased in density. There is change of prior cholecystectomy. Th e pancreas and spleen are unremarkable. Adrenal glands are symmetric. Kidneys enhance symm etrically. 1.4 cm renal | |hypodensity is unchanged. No hydronephrosis. | | No hydroureter. No bladder wall thickening. Prostate gland has coarse calcifications and is stable in size. | | | |There is inflammatory change surrounding the distal sigmoid colon just upstream from the an astomosis. There are several diverticula in this area. Cecal diverticula are also present. Diverting ileostomy is | |present. No evidence of bowel obstruction. | |There is no free air. No pathologically enlarged lymph nodes. The aorta is normal in cour se and caliber. There is atherosclerosis. No aneurysmal dilatation. No acute bone process . Multilevel degenerative change is noted. | | | |IMPRESSION: | |1. Findings suggestive of recurrent diverticulitis just upstream from the distal sigmoid a nastomosis. | |2. Postsurgical change of diverting ileostomy. | |3. Hepatic steatosis. | |4. Small hiatal hernia. | |5. The results of the study were discussed with Dr. Diana at 4:50 p.m. | | | | | |JOB #: [id number] | | | |Read By: MASSIMO NUNEZ MD | | | |Released By: MASSIMO NUNEZ MD | |Date: 10/15/2015 11:45 | | | | | + + documented in this encounter Visit Diagnoses Not on filedocumented in this encounter"
--- OUTSIDE RECORDS SUMMARY | ~2019-02-17 | XMS | Encounter Summary ---
Demographics + + + | Address | [address] | | | [place] [address] | + + + | Home Phone [...] Team Providers + +------+ + | Care Midwife Practitioner Name | Role | Phone | + +------+ + | Ryan Gutiérrez MD | PCP | | + +------+ + Reason for Visit + + + | Reason | Comments | + + + | ED Follow-up | | + + + Encounter Details +--------+---------+ + + + | Date | Type | Department | Care Team | Description | +--------+---------+ + + + | 01/30/ | Office | [facility] | Lizbeth Reddy NP | Community acquired | | 2017 | Visit | [facility] | [address] | pneumonia, | | | | [facility] [address] | [place], [place] | unspecified | | | | [address] [place], | [address] | laterality (Primary | | | | [place] [address] | [phone] | Dx) | | | | [phone] | | | +--------+---------+ + + + [...] + + + | Blood Pressure | 110/76 | 01/30/2017 11:08 AM | | | | | PDT | | + + + + + | Pulse | 72 | 01/30/2017 11:08 AM | | | | | PDT | | + + + + + | Temperature | - | - | | + + + + + | Respiratory Rate | 16 | 01/30/2017 11:08 AM | | | | | PDT | | + + + + + | Oxygen Saturation | 95% | 01/30/2017 11:08 AM | | | | | PDT | | + + + + + | Inhaled Oxygen | - | - | | | Concentration | | | | + + + + + | Weight | 92.6 kg (204 lb 3.2 | 01/30/2017 11:08 AM | | | | oz) | PDT | | + + + + + | Height | 167.6 cm (5' 6") | 01/30/2017 11:08 AM | | | | | PDT | | + + + + + | Body Mass Index | 32.96 | 01/30/2017 11:08 AM | | | | | PDT | | + + + + + documented in this encounter Patient Instructions Patient Instructions Lizbeth Reddy NP - 01/30/2017 11:00 AM PDTWe will contact insurance f or a prior authorization to have the lesion (seborrheic keratosis) removed. I will contact Dr. Silvestre regarding a refill of your pain medication. documented in this encounter Progress Notes Lizbeth Reddy NP - 01/30/2017 11:00 AM PDT Patient ID: Geraldo Mcfadden is a 76 y.o. year old male Chief Complaint: Chief Complaint Patient presents with ED Follow-up Assessment and Plan: 1. Pneumonia: Completed course of Levaquin. No current sx. Spo2 improved from 91% to 95% today in office. Lungs CTA. 2. Painful seborrheic keratosis: PA request for removal submitted to [facility]. Patient with [employer] insurance. 3. Chronic back pain: Patient to discuss pain management with Dr. Silvestre. Subjective: Geraldo Mcfadden is a 76 year old male patient presenting for a hospital admission follow-up. He is an established patient of Dr. Silvestre and new to myself. He was admitted to [facility] on for pneumonia. Given IV Levaquin and monitored overnight. WBCs improved from 20. 8 to 11.1. Discharged to home on PO Levaquin x 5 days. Today, patient reports he completed the course of abx. Denies cough or SOB. Also has a lesion on the left side of his neck along his collar line that is bothersome. I t catches on his clothes and is painful. Reports a history of melanoma. Has been utilizing Oxycodone twice daily vs once daily as prescribed for his chronic back p ain. Allergies: Allergies Allergen Reactions Zolpidem Anaphylaxis Medications: Current Outpatient Prescriptions Medication Sig Dispense Refill aspirin 325 mg tablet Take 325 mg by mouth Daily. atenolol (TENORMIN) 25 mg tablet Take 25 mg by mouth Daily. gabapentin (NEURONTIN) 300 mg capsule Take 600 mg by mouth 3 times daily. levothyroxine (SYNTHROID, LEVOTHROID) 137 MCG tablet Take [...] visit. Review of Systems Constitutional: Negative for chills and fever. Respiratory: Negative for cough, chest tightness, shortness of breath and wheezing. Skin: +bothersome/painful lesion to neck Objective: Vitals: BP 110/76 | Pulse 72 | Resp 16 | Ht 1.676 m (5' 6") | Wt 92.6 kg (204 lb 3.2 oz) | SpO 2 95% | BMI 32.96 kg/m Physical Exam Constitutional: He is oriented to person, place, and time. He appears well-developed and we ll-nourished. Cardiovascular: Normal rate, regular rhythm, normal heart sounds and intact distal pulses. Pulmonary/Chest: Effort normal and breath sounds normal. Neurological: He is alert and oriented to person, place, and time. Skin: Skin is warm and dry. Left side of neck, along collar line with raised crusty brown papule, erythematous base. Psychiatric: He has a normal mood and affect. His behavior is normal. Judgment and thought content normal. documented in this enco unter Plan of Treatment +--------+---------+ + + + [...] [place] | | | | | | [address] | | | | | | [phone] | | | | | | | | +--------+---------+ + + + | 02/26/ | Office | Urology | Lillie Fowler | | | 2018 | Visit | | LILLIE Lopez [address] | | | | | | [address] | | | | | | [place], [place] | | | | | | [address] | | | | | | [phone] | | | | | | | | +--------+---------+ + + + | 03/16/ | Office | Neurology | Theresa, | | | 2018 | Visit | | [address] | | | | | [address] [place], | | | | | | [place] [address] | | | | | | [phone] | | | | | | | | +--------+---------+ + + + | 04/12/ | Office | Primary Care | Massimo Ramos | | | 2019 | Visit | | MD Fer [address] | | | | | | [address] [...] [place] | | | | | | [address] | | | | | | | [...] | | | care | | | Automation Engineering Technician-C | | | | | | [...] | | | care | | | Automation Engineering Technician-C | | | | | | [...] | | | care | | | Automation Engineering Technician-C | | | | | | [...] | | | care | | | Automation Engineering Technician-C | | | | | | | linical | + +--------+ +---+-----+ + + + | Note: Pt will | | check CBG's daily x1 | | Pt will take Lantis as | | prescribed | + + documented as of this encounter Visit Diagnoses + + | Diagnosis | + + | Community acquired pneumonia, unspecified laterality - Primary | + + documented in this encounter
--- OUTSIDE RECORDS SUMMARY | ~2019-02-17 | XMS | Encounter Summary ---
Demographics + + + | Address | [address] | | | [place] [address] | + + + | Home Phone [...] Team Providers + +------+ + | Care Blending Machine Feeder Name | Role | Phone | + [...] Description | +--------+--------+ + + + | 03/20/ | Refill | [place] [facility] | Horacio Silvestre, | Medication Refill | | 2017 | | [facility] | [address] | | | | | [facility] [address] | [facility], [place] | | | | [address] [place], | [address] | | | | | [place] [address] | [phone] | | | | | [phone] | | | +--------+--------+ + + + [...] [place] | | | | | | [address] | | | | | | [phone] | | | | | | | | +--------+---------+ + + + | 02/26/ | Office | Urology | Lillie Fowler | | | 2019 | Visit | | LILLIE Lopez [address] | | | | | | [address] | | | | | | [place], [place] | | | | | | [address] | | | | | | [phone] | | | | | | | | +--------+---------+ + + + | 03/16/ | Office | Neurology | Theresa, | | | 2018 | Visit | | [address]DA [address] | | | | [address] [place], | | | | | | [place] [address] | | | | | | [phone] | | | | | | | | +--------+---------+ + + + | 04/12/ | Office | Primary Care | Massimo Ramos Pedro Luis | | | 2019 | Visit | | MD Fer [address] | | | | | | [place] | | | | | | [address] | | | | | | | | +--------+---------+ + + + | 10/03/ | Office | Neurology | Fabián Carias MD | | | 2019 | Visit | | [address] | | | | | | [place] | | | | | | [address] | | | | | | | [...] | | | care | | | Datawarehouse Developer-C | | | | | | [...] | | | care | | | Datawarehouse Developer-C | | | | | | [...] | | | care | | | Datawarehouse Developer-C | | | | | | [...] | | | care | | | Datawarehouse Developer-C | | | | | | [...]
--- OUTSIDE RECORDS SUMMARY | ~2019-02-17 | XMS | Encounter Summary ---
Demographics + + + | Address | [address] | | | [place] [address] | + + + | Home Phone | | + + + | Preferred Language | Unknown | + + + | Marital Status | | + + + | Mormon Affiliation | 1025 | + + + | Race | Unknown | + + + | Ethnic Group | Unknown | + + + Author + + + | Author | [facility] | | | and [place] | + + + | Organization | [facility] | | | [...] Team Providers + +------+ + | Care Physician Pediatrician Name | Role | Phone | + +------+ + | Horacio Silvestre DO | PCP | | + +------+ + Reason for Visit + + + | Reason | Comments | + + + | Follow-up | Hopitalized pneumonia 10/12-10/19 | + + + Evaluate & Treat (Routine) +--------+--------+ + + + + | Status | Reason | Specialty | Diagnoses / | Referred By | Referred To | | | | | Procedures | Contact | Contact | +--------+--------+ + + + + | Closed | | Primary Care | Diagnoses | [place] | [facility] | | | | | | [place] | [facility] | | | | | Office/outpa | MEDICAL | Primary Care | | | | | tient visit | [address] | [address] [facility] | | | | | est | [place] | [place] | | | | | [address], | [address] | [address] | | | | | Authorized | [address] [place] | Phone: | | | | | For any | MARCELO LANGSTON | [phone] | | | | | clinically | [address] | Fax: | | | | | necessary | Phone: | [phone] | | | | | Visits for | [phone] | | | | | | 365 days | Fax: | | | | | | AUTH NO: | [phone] | | | | | | [phone] | | | +--------+--------+ + + + + Encounter Details +--------+---------+ + + + | Date | Type | Department | Care Team | Description | +--------+---------+ + + + | 10/27/ | Office | [facility] | Horacio Silvestre, | Panlobular emphysema | | 2019 | Visit | [facility] | DO [address] | ([facility]) (Primary Dx); | | | | [facility] | [place], [place] | Mediastinal | | | [address] [place], | [address] | lymphadenopathy; | | | | [place] [address] | [phone] | History of bacterial | | | | [phone] | | pneumonia; Acquired | | | | | | hypothyroidism | +--------+---------+ + + + Social History [...] + + + | Blood Pressure | 122/68 | 10/27/2018 1:08 PM | | | | | PDT | | + + + + + | Pulse | 84 | 10/27/2018 1:08 PM | | | | | PDT | | + + + + + | Temperature | 37.2 C (99 F) | 10/27/2018 1:08 PM | | | | | PDT | | + + + + + | Respiratory Rate | 20 | 10/27/2018 1:08 PM | | | | | PDT | | + + + + + | Oxygen Saturation | 91% | 10/27/2018 1:08 PM | | | | | PDT | | + + + + + | Inhaled Oxygen | - | - | | | Concentration | | | | + + + + + | Weight | 92.5 kg (204 lb) | 10/27/2018 1:08 PM | | | | | PDT | | + + + + + | Height | 167.6 cm (5' 6") | 10/27/2018 1:08 PM | | | | | PDT | | + + + + + | Body Mass Index | 32.93 | 10/27/2018 1:08 PM | | | | | PDT [...] encounter Progress Notes Horacio Silvestre DO - 10/27/2018 1:00 PM PDTFormatting of this note might be different f rom the original. Patient ID: Geraldo Mcfadden is a 78 y.o. year old male Chief Complaint Patient presents with Follow-up Hopitalized pneumonia 10/12-10/19 Assessment and Plan: 1. Panlobular emphysema (HCC) - XR Chest PA and Lateral; Future 2. Mediastinal lymphadenopathy Awaiting CT lungs and further Dr. Franklin input. 3. History of bacterial pneumonia - XR Chest PA and Lateral; Future Subjective: Ed is here to f/u after hospitalization (10/12-) after pneumonia. He was given IV Zosy n and discharged on Augmentin. He was seen today by hematology today with mediastinal lymph adenopathy. He will have a repeat CT as well as a CBC performed. Cough This is a new problem. The current episode started more than 1 month ago. The problem has b een gradually improving. The problem occurs constantly. The cough is productive of sputum. Mary teran has tried a beta-agonist inhaler for the symptoms. The treatment provided moderate relief. His past medical history is significant for emphysema. Allergies Allergen Reactions Ambien [Zolpidem] Anaphylaxis Past Medical History: Diagnosis Date Carpal [...] CATARACT REMOVAL; Surgeon: Tay Kern MD; Location: [facility] [employer] MOHS SURGERY Left L ear melanoma Ventral incisional hernia repair Family History Problem Relation Age of Onset Diabetes Mother Heart disease Father Arthritis Maternal Grandfather Heart disease Maternal Grandfather Other (see comment) Paternal Grandmother Dementia Social History Socioeconomic History Marital status: Spouse [...] Last attempt to quit: 1975 Years since quittin.5 Smokeless tobacco: Never Used Substance and Sexual [...] Take 10 mg by mouth every morning. cholecalciferol (VITAMIN D-3) 1000 units TABS Take 2,000 Units by mouth every morning. clopidogrel (PLAVIX) 75 mg tablet Take 75 mg by mouth every morning. cyanocobalamin (VITAMIN B-12) 1000 MCG tablet Take 1,000 mcg by mouth every morning. DULoxetine (CYMBALTA) [address] capsule Take 60 mg by mouth every morning. hydroCHLOROthiazide 25 mg tablet Take 25 mg by mouth every morning. insulin glargine (LANTUS) 100 units/mL injection (vial) Inject 35 Units under the skin nightly. levothyroxine (SYNTHROID) 100 mcg tablet Take 2.5 tablets by mouth every morning (befor e breakfast) for 90 days. 75 tablet 2 losartan (COZAAR) 50 mg tablet Take 50 mg by mouth every morning. Nebulizer MISC 1 each by Other route Daily. 1 each 0 pantoprazole (PROTONIX) 20 mg tablet Take 20 mg by mouth every morning (before breakfas t). pregabalin (LYRICA) 300 MG capsule Take 300 mg by mouth 2 times daily. tamsulosin (FLOMAX) 0.4 mg CAPS Take 0.4 mg by mouth nightly. testosterone (ANDRODERM) 2 mg/[address] 1 patch onto the skin nightly. traZODone (DESYREL) 100 mg tablet Take 100 mg by mouth nightly. urea (CARMOL) 40 % CREA Apply 1 Application topically Daily as needed for Dry Skin. No current facility-administered medications for this visit. Objective: Vitals: BP 122/68 | Pulse 84 | Temp 37.2 C (99 F) (Oral) | Resp 20 | Ht 1.676 m (5' 6") | Wt 92.5 kg (204 lb) | SpO2 91% | BMI 32.93 kg/m Physical Exam Constitutional: He appears well-developed and well-nourished. No distress. Cardiovascular: Normal rate, regular rhythm and normal heart sounds. Exam reveals no gallop and no friction rub. No murmur heard. Pulmonary/Chest: He has no decreased breath sounds. He has wheezes. He has no rhonchi. He h as no rales. Vitals reviewed. This note was transcribed using voice [...] [place] | | | | | | [address] | | | | | | [phone] | | | | | | | | +--------+---------+ + + + | 02/26/ | Office | Urology | Lillie Fowler | | | 2018 | Visit | | LILLIE Lopez [address] | | | | | | [address] | | | | | | [place] | | | | | | [address] | | | | | | [phone] | | | | | | | | +--------+---------+ + + + | 03/16/ | Office | Neurology | Theresa, | | | 2018 | Visit | | SHONDA Mckinney [address] | | | [address] [place], | | | | | | [place] [address] | | | | | | [phone] | | | | | | | | +--------+---------+ + + + | 04/12/ | Office | Primary Care | Massimo Ramos | | | 2019 | Visit | | MD Fer [address] | | | | | | [address] [place] | | | | | | [address] | | | | | | | | +--------+---------+ + + + | 10/03/ | Office | Neurology | Fabián Carias MD | | | 2019 | Visit | | [address] | | | | | | [place] | | | | | | [address] | | | | | | | [...] | | care | | | 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 [employer] | | | | | | | [...] | | care | | | 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 [employer] | | | | | | | [...] | | care | | | 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 [employer] | | | | | | | [...] | | care | | | 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 [employer] | | | | | | | linical | + +--------+ +---+-----+ + + + | Note: Pt will | | check CBG's daily x1 | | Pt will take Lantis as | | prescribed | + + documented as of this encounter Results TSH (12/08/2018 12:30 PM PDT) + + + + + [...] HOSPITAL | | | | | | [facility] | | | | | | MEDICAL | | | | | | CENTER LAB | | + + + + + + + + | Specimen | + + | Blood | + + + + + + + | Performing | Address | City/State/Zipcode | Phone Number | | Organization | | | | + + + + + | [facility] | [address] | [place] [address] | [phone] | | [facility] | | | | | [facility] | | | | + + + + + XR Chest PA and Lateral (10/27/2018 2:24 [...] - Primary Other emphysema | + + | Mediastinal lymphadenopathy Enlargement of lymph nodes | + + | History of bacterial pneumonia Personal history of pneumonia (recurrent) | + + | Acquired hypothyroidism Unspecified hypothyroidism | + + documented in this encounter Additional Health Concerns + + + + | Infection | Noted Time | Resolved Time | + + + + | Methicillin-resistant Staphylococcus aureus | 07/20/2018 4:00 PM | | | | PDT | | + + + + documented as of this encounter
--- OUTSIDE RECORDS SUMMARY | ~2019-02-17 | XMS | Encounter Summary ---
Demographics + + + | Address | [address] | | | [place] [address] | + + + | Home Phone [...] Providers + +------+ + | Care Senior Informatica Etl Developer Name | Role | Phone | + +------+ + | Horacio Silvestre DO | PCP | | + +------+ + Reason for Visit + + + | Reason | Comments | + + + | Coordination Of Care | | + + + Encounter Details +--------+ + + + + | Date | Type | Department | Care Team | Description | +--------+ + + + + | 06/01/ | Telephone | [facility] | Charline Banks, | Coordination Of Care | | 2018 | | HOSPITAL OP CASE | Case | | | | | MANAGEMENT [address] | [facility] | | | | | [address] | | | | | | [place] | | | | | | [address] | | | | | | [phone] | | | +--------+ + + + [...] [place] | | | | | | [address] | | | | | | [phone] | | | | | | | | +--------+---------+ + + + | 02/26/ | Office | Urology | Lillie Fowler | | | 2018 | Visit | | LILLIE Lopez [address] | | | | | | [address] | | | | | | [place], [place] | | | | | | [address] | | | | | | [phone] | | | | | | | | +--------+---------+ + + + | 03/16/ | Office | Neurology | Theresa, | | | 2018 | Visit | | SHONDA Mckinney [address] | | | | [address] [place], | | | | | | [place] [address] | | | | | | [phone] | | | | | | | | +--------+---------+ + + + | 04/12/ | Office | Primary Care | Massimo Ramos Pedro Luis | | | 2019 | Visit | | MD Fer [address] | | | | | | [place] | | | | | | [address] | | | | | | | | +--------+---------+ + + + | 10/03/ | Office | Neurology | Fabián Carias MD | | | 2019 | Visit | | [address] | | | | | | [place] | | | | | | [address] | | | | | | | [...] | | | care | | | [facility] | | | | | | | [...] | | | care | | | [facility] | | | | | | | [...] | | | care | | | [facility] | | | | | | | [...] | | | care | | | [facility] | | | | | | | linical | + +--------+ +---+-----+ + + + | Note: Pt will | | check CBG's daily x1 | | Pt will take Lantis as | | prescribed | + + documented as of this encounter Visit Diagnoses Not on filedocumented in this encounter"
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
--- OUTSIDE RECORDS SUMMARY | ~2019-02-17 | XMS | Encounter Summary ---
Demographics + + + | Address | [address] | | | [place] [address] | + + + | Home Phone | | + + + | Preferred Language | Unknown | + + + | Marital Status | | + + + | Worship Affiliation | 1025 | + + + [...] Providers + +------+ + | Care Director Of Special Education Name | Role | Phone | + +------+ + | Ryan Gutiérrez MD | PCP | | + +------+ + Encounter Details +--------+ + + + + | Date | Type | Department | Care Team | Description | +--------+ + + + + | 11/24/ | Hospital | [facility] | Kasey Gibson | | | 2015 | Encounter | [facility] | Lin, [address] | | | | | C[address] | [address] [place] | | | | | [address] [place] | [address] | | | | | [address] | [phone] | | | | | [phone] | | | +--------+ + + + [...] [place] | | | | | | [address] | | | | | | [phone] | | | | | | | | +--------+---------+ + + + | 02/26/ | Office | Urology | Lillie Fowler | | | 2018 | Visit | | LILLIE Lopez [address] | | | | | | [address] | | | | | | [place] | | | | | | [address] | | | | | | [phone] | | | | | | | | +--------+---------+ + + + | 03/16/ | Office | Neurology | Theresa, | | | 2018 | Visit | | [address]DA M[address]ney [address] | | | | | | [address] [place], | | | | | | [place] [address] | | | | | | [phone] | | | | | | | | +--------+---------+ + + + | 04/12/ | Office | Primary Care | Massimo Ramos | | | 2019 | Visit | | MD Fer [address] | | | | | | [place] | | | | | | [address] | | | | | | | | +--------+---------+ + + + | 10/03/ | Office | Neurology | Fabián Carias MD | | | 2019 | Visit | | [address] | | | | | | [place] | | | | | | [address] | | | | | | | [...] Lifest | Coordinatio | | Yes | oJcelyn, | | function and decrease | yle | n of | | | Charline M, | | dehydration | | complex | | | Case | | | | care | | | Lumber Kiln Operator-C | | | | | | [...] | | | care | | | Lumber Kiln Operator-C | | | | | | [...] | | | care | | | Lumber Kiln Operator-C | | | | | | [...] | | | care | | | Lumber Kiln Operator-C | | | | | | [...] + +--------+ + + + | XR SHOULDER RIGHT 2 | Routin | 11/24/2014 | | Results for this | | + VW | e | 12:21 PM | | procedure are in the | | | | PDT | | results section. | + +--------+ + + + | CT CERVICAL SPINE WO | Routin | 11/24/2014 | | Results for this | | CONTRAST | e | 12:21 PM | | procedure are in the | | | | PDT | | results section. | + +--------+ + + + documented in this encounter Results CT Cervical Spine wo Contrast (11/24/2014 12:21 PM PDT) + + | Specimen | + + | | + + + + + | Narrative | Performed At | + + + | ORIGINAL CT CERVICAL SPINE WITHOUT CONTRAST: | | | CLINICAL STATEMENT: Trauma with neck pain. TECHNIQUE: Axial | | | noncontrast images are obtained through the cervical spine. DLP is | | | 539.55 mGy-cm. Call report to Dr. Diana is made at the time of | | | dictation. This study is dictated at 1336. REPORT: No | | | prevertebral soft tissue swelling is seen. Atherosclerosis is noted | | | at the right and left carotid bulbs. The lung apices visualized | | | demonstrate no focal infiltrate or nodule. Visualized intracranial | | | contents demonstrate no acute finding. The visualized mastoid air | | | cells and middle ears are clear. The atlantoaxial relationship is | | | maintained. No acute fracture, dislocation, or subluxation is seen. | | | C2-3: No canal or foraminal narrowing. C3-4: Disk space | | | narrowing with endplate spurring and sclerosis is present. No canal | | | or foraminal narrowing. C4-5: Disk space narrowing is present | | | with mild endplate sclerosis. No canal narrowing is seen. No | | | foraminal narrowing evident. C5-6: Disk space narrowing is | | | present with mild posteriorly projecting disk osteophyte. | | | Tludoutn-qq-lxhtqgbji canal width is approximately 10 mm. | | | Foraminal narrowing is evident on the right related to endplate | | | osteophyte. C6-7: Disk space narrowing is present. No canal or | | | foraminal narrowing is seen. C7-T1: No canal narrowing is seen. | | | Foraminal narrowing is apparent on the left related to facet | | | degenerative changes which are present. IMPRESSION: 1. No acute | | | finding identified. 2. Disk and facet degenerative changes as above. | | | 3. Atherosclerosis, carotid bulb bilaterally. Ultrasound of the | | | carotids may provide additional information. Job#: | | | [id number] Read By: DREW GARZA MD Released By: DREW GARZA MD Date: 11/24/2014 20:03 | | + + + + + | Procedure Note | + + | Osito, Rad Results In - 02/12/2017 8:[address] PM [address] CERVICAL SPINE | | WITHOUT CONTRAST: CLINICAL STATEMENT:Trauma with neck pain. TECHNIQUE:Axial noncontrast | | images are obtained through the cervical spine. DLP is 539.55 mGy-cm. Call report to | | Dr. Diana is made at the time of dictation. This study is dictated at 1336. REPORT:No | | prevertebral soft tissue swelling is seen. Atherosclerosis is noted at the right and | | left carotid bulbs. The lung apices visualized demonstrate no focal infiltrate or | | nodule. Visualized intracranial contents demonstrate no acute finding. The visualized | | mastoid air cells and middle ears are clear. The atlantoaxial relationship is | | maintained. No acute fracture, dislocation, or subluxation is seen. C2-3: No canal or | | foraminal narrowing. C3-4: Disk space narrowing with endplate spurring and sclerosis is | | present. No canal or foraminal narrowing. C4-5: Disk space narrowing is present with | | mild endplate sclerosis. No canal narrowing is seen. No foraminal narrowing evident. | | C5-6: Disk space narrowing is present with mild posteriorly projecting disk osteophyte. | | Ossbzbzk-ns-yojsfvaku canal width is approximately 10 mm. Foraminal narrowing is | | evident on the right related to endplate osteophyte. C6-7: Disk space narrowing is | | present. No canal or foraminal narrowing is seen. C7-T1: No canal narrowing is seen. | | Foraminal narrowing is apparent on the left related to facet degenerative changes which | | are present. IMPRESSION:1. No acute finding identified.2. Disk and facet degenerative | | changes as above.3. Atherosclerosis, carotid bulb bilaterally. Ultrasound of the | | carotids may provide additional information. Job#: [id number] Read By: | | DREW GARZA MD Released By: DREW GARZA MDDate: 11/24/2014 20:03 | | | |C4-5: Disk space narrowing is present with mild endplate sclerosis. No canal narrowing is seen. No foraminal narrowing evident. | | | |C5-6: Disk space narrowing is present with mild posteriorly projecting disk osteophyte. A pruqufg-jn-mveipitvq canal width is approximately 10 mm. Foraminal narrowing is evident on the right related to endplate osteophyte. | | | |C6-7: Disk space narrowing is present. No canal or foraminal narrowing is seen. | | | |C7-T1: No canal narrowing is seen. Foraminal narrowing is apparent on the left related to facet degenerative changes which are present. | | | |IMPRESSION: | |1. No acute finding identified. | |2. Disk and facet degenerative changes as above. | |3. Atherosclerosis, carotid bulb bilaterally. Ultrasound of the carotids may provide addit ional information. | | | | | | | | | |Read By: DREW GARZA MD | | | |Released By: DREW GARZA MD | |Date: 11/24/2014 20:03 | | | | | + + XR Shoulder Right 2 + Vw (11/24/2014 12:21 PM PDT) + + | Specimen | + + | | + + + + + | Narrative | Performed At | + + + | Clinical Indication: Reason for study: Trauma with shoulder pain | | | . Findings: The alignment of the shoulder joint is normal. | | | There is no sign of fracture, subluxation, or significant | | | degenerative change. The articular surfaces remain smooth and | | | intact. No calcium deposits are visible in the soft tissues of the | | | rotator cuff. The acromioclavicular joint is normal. Summary: | | | No evidence of acute radiographic abnormality. Read By: DREW | | | Antonieta GARZA MD Date: 11/24/2014 13:33 | | + + + + + | Procedure Note | + + | Osito, Rad Results In - 02/12/2017 8:09 PM PST | | Clinical Indication: Reason for study: | | Trauma with shoulder pain | | | | . | | | | Findings: The alignment of the shoulder joint is normal. There is no sign | | of fracture, subluxation, or significant degenerative change. The articular | | surfaces remain smooth and intact. No calcium deposits are visible in the | | soft tissues of the rotator cuff. The acromioclavicular joint is normal. | | | | Summary: No evidence of acute radiographic abnormality. | | | | Read By: DREW GARZA MD | | Date: 11/24/2014 13:33 | | | + + documented in this encounter Visit Diagnoses Not on filedocumented in this encounter"
--- OUTSIDE RECORDS SUMMARY | ~2019-02-17 | XMS | Encounter Summary ---
Demographics + + + | Address | [address] | | | [place] [address] | + + + | Home Phone [...] Providers + +------+ + | Care Senior It Security Analyst Name | Role | Phone | + [...] | +--------+ + + + + | 02/03/ | Telephone | [facility] | Cara Campbell RN | Appointment | | 2018 | | [facility] | | | | | | CLINIC [address] | | | | | | [address] [place], | | | | | | [place] [address] | | | | | | [phone] | | | +--------+ + + + [...] [place] | | | | | | [address] | | | | | | [phone] | | | | | | | | +--------+---------+ + + + | 02/26/ | Office | Urology | Lillie Fowler | | | 2018 | Visit | | [address]ILLIE Lopez [address] | | | | | | [address] | | | | | | [place] | | | | | | [address] | | | | | | [phone] | | | | | | | | +--------+---------+ + + + | 03/16/ | Office | Neurology | Theresa, | | | 2018 | Visit | | [address] | | | | [address] [place], | | | | | | [place] [address] | | | | | | [phone] | | | | | | | | +--------+---------+ + + + | 04/12/ | Office | Primary Care | Massimo Ramos | | | 2019 | Visit | | MD Fer [address] | | | | | | [place] | | | | | | [address] | | | | | | | | +--------+---------+ + + + | 10/03/ | Office | Neurology | Fabián Carias MD | | | 2019 | Visit | | [address] | | | | | | [place] | | | | | | [address] | | | | | | | [...] | | | care | | | Timber Spotter-C | | | | | | | [...] | | | care | | | Timber Spotter-C | | | | | | | [...] | | | care | | | Timber Spotter-C | | | | | | | [...] | | | care | | | Timber Spotter-C | | | | | | | linical | + +--------+ +---+-----+ + + + | Note: Pt will | | check CBG's daily x1 | | Pt will take Lantis as | | prescribed | + + documented as of this encounter Visit Diagnoses Not on filedocumented in this encounter"
--- OUTSIDE RECORDS SUMMARY | ~2019-02-17 | XMS | Encounter Summary ---
Demographics + + + | Address | [address] | | | [place] [address] | + + + | Home Phone [...] Team Providers + +------+ + | Care Skip Hoist Operator Name | Role | Phone | [...] | Encounter | HOSPITAL [facility] | Shivani CURATOR OF MANUSCRIPTS [address] | | | | | CENTER [address] | [place] | | | | | [place] | [address] | | | | | [address] | | | | | | [phone] | | | +--------+ + + + [...] [place] | | | | | | [address] | | | | | | [phone] | | | | | | | | +--------+---------+ + + + | 02/26/ | Office | Urology | Lillie Fowler | | | 2018 | Visit | | [address]IE [address] | | | | | | [address] | | | | | | [place], [place] | | | | | | [address] | | | | | | [phone] | | | | | | | | +--------+---------+ + + + | 03/16/ | Office | Neurology | Theresa, | | | 2018 | Visit | | [address] | | | | | [address] [place], | | | | | | [place] [address] | | | | | | [phone] | | | | | | | [...] [place] | | | | | | [address] | | | | | | | [...] | | | care | | | Section Forest Fire Warden-C | | | | | | | [...] | | | care | | | Section Forest Fire Warden-C | | | | | | | [...] | | | care | | | Section Forest Fire Warden-C | | | | | | | [...] | | | care | | | Section Forest Fire Warden-C | | | | | | | [...] - 1.030 | EXTERNAL | | | Ernul, | | | LAB | | | [...] | Query left basilar pneumonia. JOB #: [id number] Digitally Released | | | by: Massimo [...] | | | | | JOB #: [id number] | | Digitally Released by: Massimo Nunez | | | | | | Read By: MASSIMO NUNEZ MD | | Date: 01/15/2017 13:45 | | | + + documented in this encounter Visit Diagnoses Not on filedocumented in this encounter"
--- OUTSIDE RECORDS SUMMARY | ~2019-02-17 | XMS | Encounter Summary ---
Demographics + + + | Address | [address] | | | [place] [address] | + + + | Home Phone [...] Providers + +------+ + | Care Manager Strategic Partnerships Name | Role | Phone | + [...] Description | +--------+--------+ + + + | 01/08/ | Refill | [facility] | Horacio Silvestre, | Medication Refill; | | 2017 | | [facility] | [address] | Medication Refill | | | | MED[facility] [address] | [facility] [place] | | | | | [address] [place], | [address] | | | | | [place] [address] | [phone] | | | | | [phone] | | | +--------+--------+ + + + [...] [place] | | | | | | [address] | | | | | | [phone] | | | | | | | | +--------+---------+ + + + | 02/26/ | Office | Urology | Lillie Fowler | | | 2018 | Visit | | LILLIE Lopez [address] | | | | | | [address] | | | | | | [place], [place] | | | | | | [address] | | | | | | [phone] | | | | | | | | +--------+---------+ + + + | 03/16/ | Office | Neurology | Theresa, | | | 2018 | Visit | | [address] | | | | | | [address] [place], | | | | | | [place] [address] | | | | | | [phone] | | | | | | | | +--------+---------+ + + + | 04/12/ | Office | Primary Care | Massimo Ramos | | | 2019 | Visit | | MD Fer [address] | | | | | | [place] | | | | | | [address] | | | | | | | | +--------+---------+ + + + | 10/03/ | Office | Neurology | Fabián Carias MD | | | 2019 | Visit | | [address] | | | | | | [place] | | | | | | [address] | | | | | | | [...] | | | care | | | Palletizer-C | | | | | | | [...] | | | care | | | Palletizer-C | | | | | | | [...] | | | care | | | Palletizer-C | | | | | | | [...] | | | care | | | Palletizer-C | | | | | | | [...] | | unspecified | + + | 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
--- OUTSIDE RECORDS SUMMARY | ~2019-02-17 | XMS | Encounter Summary ---
Demographics + + + | Address | [address] | | | [place] [address] | + + + | Home Phone [...] Team Providers + +------+ + | Care Gas Torch Solderer Name | Role | Phone | + +------+ + | Horacio Silvestre DO | PCP | | + +------+ + Reason for Visit + + + | Reason | Comments | + + + | Follow-up | Diabetes | + + + Evaluate & Treat [...] | | | | | | [facility] | [facility] | | | | | Office/outpa | MEDICAL | Primary Care | | | | | tient visit | [address] | [address] | | | | | est | [place] | [place] | | | | | [address], | [address] | [address] | | | | | Authorized | [address] | Phone: | | | | | For any | [place], [place] | [phone] | | | | | clinically | [address] | Fax: | | | | | necessary | Phone: | [phone] | | | | | Visits for | [phone] | | | | | | 365 days | Fax: | | | | | | AUTH NO: | [phone] | | | | | | [phone] | | | +--------+--------+ + + + + Encounter Details +--------+---------+ + + + | Date | Type | Department | Care Team | Description | +--------+---------+ + + + | 09/01/ | Office | [facility] | Horacio Silvestre, | Type 2 diabetes | | 2019 | Visit | [facility] | DO [address] | mellitus with | | | | MEDICAL CLINIC [address] | [place], [place] | diabetic | | | | [address] [facility], | [address] | polyneuropathy, with | | | | [place] [address] | [phone] | long-term current | | | | [phone] | | use of insulin (HCC) | | | | | | (Primary Dx); | | | | | | Atherosclerosis of | | | | | | diomede coronary | | | | | | artery of diomede | | | | | | heart without angina | | | | | | pectoris; Benign | | | | | | prostatic | | | | | | hyperplasia with | | | | | | incomplete bladder | | | | | | emptying; long-term | | | | | | current use of | | | | | | aspirin; long-term | | | | | | current use of | | | | | | opiate analgesic; | | | | | | Current use of beta | | | | | | marly; On | | | | | | potassium wasting | | | | | | diuretic therapy | +--------+---------+ + + + Social History [...] +---------+ + + | Blood Pressure | 104/56 | 09/01/2018 10:50 AM | | | | | PDT | | + +---------+ + + | Pulse | 78 | 09/01/2018 10:50 AM | | | | | PDT | | + +---------+ + + | Temperature | - | - | | + +---------+ + + | Respiratory Rate | 20 | 09/01/2018 10:50 AM | | | | | PDT | | + +---------+ + + | Oxygen Saturation | 93% | 09/01/2018 10:50 AM | | | | | PDT [...] + documented as of this encounter Progress Horacio Le DO - 09/01/2018 11:00 AM PDTFormatting of this note might be different f rom the original. Patient ID: Geraldo Mcfadden is a 78 y.o. year old male Chief Complaint Patient presents with Follow-up Diabetes; Ed 08/23 for hyperosmoler syndrome Assessment and Plan: 1. Type 2 diabetes mellitus with diabetic polyneuropathy, with long-term current use of ins ulin (HCC) Continue current Lantus dosing 2. 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 Benign prostatic hyperplasia with incomplete bladder emptying - finasteride (PROPECIA) 1 MG tablet; Take 1 tablet by mouth Daily. 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 Current use of beta marly Stable 7. On potassium wasting diuretic therapy Stable Subjective: Diabetes He presents for his follow-up diabetic visit. He has type 2 diabetes mellitus. His disease course has been stable. There are no hypoglycemic associated symptoms. Associated symptoms i nclude foot paresthesias and weakness. Pertinent negatives for diabetes include no chest wali n, no polydipsia, no polyphagia and no polyuria. There are no hypoglycemic complications. Sy mptoms are stable. Diabetic complications include autonomic neuropathy, a CVA, heart disease , impotence and peripheral neuropathy. Pertinent negatives for diabetic complications includ e no nephropathy, PVD or retinopathy. Current diabetic treatment includes insulin injections . He is compliant with treatment all of the time. His weight is stable. He is following a di abetic diet. There is no change in his home blood glucose trend. An DENY inhibitor/angiotensi n II receptor marly is being taken. Benign Prostatic Hypertrophy This is a chronic problem. The current episode started more than 1 year ago. The problem york s been gradually worsening since onset. Irritative symptoms include frequency, nocturia and urgency. Obstructive symptoms include incomplete emptying and a slower stream. Past treatmen ts include finasteride. The treatment provided mild relief. He has been using treatment for 2 or more years. Allergies Allergen Reactions Ambien [Zolpidem] Anaphylaxis Past [...] CATARACT REMOVAL; Surgeon: Tay Kern MD; Location: [facility] MOHS SURGERY [...] Packs/day: 3.00 Years: 15.00 Pack years: 45.00 Last attempt to quit: 1974 Years since quittin.4 Smokeless tobacco: Never Used Substance and Sexual Activity Alcohol use: No Drug use: No Sexual activity: Not on file Other Topics Concern Not on file Social History Narrative Not on file Current Outpatient Medications Medication Sig Dispense Refill amLODIPine (NORVASC) 10 MG tablet Take 10 [...] mouth every morning. 90 capsul e 3 finasteride (PROPECIA) 1 MG tablet Take 1 tablet by mouth Daily. 30 tablet 2 hydroCHLOROthiazide 25 mg tablet Take 1 tablet by mouth every morning. 90 tablet 3 insulin glargine (LANTUS) 100 units/mL injection (vial) Inject 35 Units under the skin every morning. levothyroxine (SYNTHROID) 75 MCG tablet Take 75 mcg by mouth every morning (before haven kfast). loperamide (IMODIUM) 2 mg capsule Take 2 mg by mouth 4 times daily as needed for Diarrh ea. losartan (COZAAR) 50 mg tablet Take 1 tablet by mouth every morning. 90 tablet 3 omeprazole (PRILOSEC) 20 mg capsule Take 1 capsule by mouth every morning (before break fast). 90 capsule 3 pregabalin (LYRICA) 300 MG capsule Take 1 capsule by mouth 2 times daily. 180 capsule 1 tamsulosin (FLOMAX) 0.4 mg CAPS Take 1 capsule by mouth nightly. 90 capsule 3 testosterone (ANDRODERM) 2 mg/[address] 1 patch onto the skin nightly. 90 patch 1 traZODone (DESYREL) 50 mg tablet Take 2 tablets by mouth nightly. 90 tablet 3 urea (CARMOL) 40 % CREA Apply 1 Application topically Daily as needed for Dry Skin. No current facility-administered medications for this visit. Objective: Vitals: BP 104/56 | Pulse 78 | Resp 20 | SpO2 93% Physical Exam Constitutional: He appears well-developed and well-nourished. No distress. Cardiovascular: Normal rate, regular rhythm and normal heart sounds. Exam reveals no gallop and no friction rub. No murmur heard. Pulmonary/Chest: Effort normal and breath sounds normal. No respiratory distress. He has no wheezes. He has no rales. Vitals reviewed. This note was [...] [place] | | | | | | [address] | | | | | | [phone] | | | | | | | | +--------+---------+ + + + | 02/26/ | Office | Urology | Lillie Fowlre | | | 2018 | Visit | | [address] | | | | | | [address] | | | | | | [place] | | | | | | [address] | | | | | | [phone] | | | | | | | | +--------+---------+ + + + | 03/16/ | Office | Neurology | Theresa, | | | 2018 | Visit | | [address] | | | | | | [address] [place], | | | | | | [place] [address] | | | | | | [phone] | | | | | | | | +--------+---------+ + + + | 04/12/ | Office | Primary Care | Massimo Ramos | | | 2019 | Visit | | MD Fer [address] | | | | | | [place] | | | | | | [address] | | | | | | | | +--------+---------+ + + + | 10/03/ | Office | Neurology | Fabián Carias MD | | | 2019 | Visit | | [address] | | | | | | [place] | | | | | | [address] | | | | | | | [...] | | care | | | Computer Forensic Examiner-C | | | | | | | [...] | | care | | | Computer Forensic Examiner-C | | | | | | | [...] | | care | | | Computer Forensic Examiner-C | | | | | | | [...] | | care | | | Computer Forensic Examiner-C | | | | | | | [...] Primary | + + | 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 | + + | Benign prostatic hyperplasia with incomplete bladder emptying | + + | long-term current use of aspirin Encounter for long-term (current) use of aspirin | + + | 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
--- OUTSIDE RECORDS SUMMARY | ~2019-02-17 | XMS | Encounter Summary ---
Demographics + + + | Address | [address] | | | [place] [address] | + + + | Home Phone [...] Team Providers + +------+ + | Care Cnc Cutting Operator Name | Role | Phone | [...] + + + + | 07/24/ | Telephone | [facility] | Fabián Carias MD | Results, Imaging | | 2019 | | [facility] | [address] | | | | | CLIN[address] | [place] | | | | | [address] [place], | [address] | | | | | [place] [address] | | | | | | [phone] | | | +--------+ + + + [...] [place] | | | | | | [address] | | | | | | [phone] | | | | | | | | +--------+---------+ + + + | 02/26/ | Office | Urology | Lillie Fowler | | | 2018 | Visit | | LILLIE Lopez [address] | | | | | | [address] | | | | | | [place], [place] | | | | | | [address] | | | | | | [phone] | | | | | | | | +--------+---------+ + + + | 03/16/ | Office | Neurology | Theresa, | | | 2018 | Visit | | SHONDA M[address] | | | | | [address] [place], | | | | | | [place] [address] | | | | | | [phone] | | | | | | | | +--------+---------+ + + + | 04/12/ | Office | Primary Care | Massimo Ramos Pedro Luis | | | 2019 | Visit | | MD Fer [address] | | | | | | [place] | | | | | | [address] | | | | | | | | +--------+---------+ + + + | 10/03/ | Office | Neurology | Fabián Carias MD | | | 2019 | Visit | | [address] | | | | | | [place] | | | | | | [address] | | | | | | | [...] | | | care | | | Hand Glove Cleaner-C | | | | | | [...] | | | care | | | Hand Glove Cleaner-C | | | | | | [...] | | | care | | | Hand Glove Cleaner-C | | | | | | [...] | | | care | | | Hand Glove Cleaner-C | | | | | | [...]
--- OUTSIDE RECORDS SUMMARY | ~2019-02-17 | XMS | Encounter Summary ---
Demographics + + + | Address | [address] | | | [place] [address] | + + + | Home Phone | | + + + | Preferred Language | Unknown | + + + | Marital Status | | + + + | Restoration Affiliation | 1025 | + + + | Race | Unknown | + + + | Ethnic Group | Unknown | + + + Author + + + | Author | [facility] | | | and [place] | + + + | Organization | [facility] | | | [...] Team Providers + +------+ + | Care Financial Foundations Associate Name | Role | Phone | + +------+ + | Ryan Gutiérrez MD | PCP | | + +------+ + Encounter Details +--------+ + + + + | Date | Type | Department | Care Team | Description | +--------+ + + + + | 10/03/ | Hospital | [facility] | Horacio Silvestre, | | | 2017 | Encounter | [facility] | DO [address] [place] | | | | | [facility] [address] | [place], [place] | | | | | [address] [place], | [address] | | | | | [place] [address] | [phone] | | | | | [phone] | | | +--------+ + + + [...] [place] | | | | | | [address] | | | | | | [phone] | | | | | | | | +--------+---------+ + + + | 02/26/ | Office | Urology | Lillie Fowler | | | 2018 | Visit | | LILLIE Lopez [address] | | | | | | [address] | | | | | | [place] | | | | | | [address] | | | | | | [phone] | | | | | | | | +--------+---------+ + + + | 03/16/ | Office | Neurology | Theresa, | | | 2018 | Visit | | SHONDA [address] | | | | | [address] [place], | | | | | | [place] [address] | | | | | | [phone] | | | | | | | | +--------+---------+ + + + | 04/12/ | Office | Primary Care | Massimo Ramos | | | 2019 | Visit | | MD Fer [address] | | | | | | [place] | | | | | | [address] | | | | | | | | +--------+---------+ + + + | 10/03/ | Office | Neurology | Fabián Carias MD | | | 2019 | Visit | | [address] | | | | | | [place] | | | | | | [address] | | | | | | | [...] | | | care | | | Biscuit Factory Worker-C | | | | | | [...] | | | care | | | Biscuit Factory Worker-C | | | | | | [...] | | | care | | | Biscuit Factory Worker-C | | | | | | [...] | | | care | | | Biscuit Factory Worker-C | | | | | | | linical | + +--------+ +---+-----+ + + + | Note: Pt will | | check CBG's daily x1 | | Pt will take Lantis as | | prescribed | + + documented as of this encounter Visit Diagnoses Not on filedocumented in this encounter"
--- OUTSIDE RECORDS SUMMARY | ~2019-02-17 | XMS | Encounter Summary ---
Demographics + + + | Address | [address] | | | [place] [address] | + + + | Home Phone | | + + + | Preferred Language | Unknown | + + + | Marital Status | | + + + | Christianity Affiliation | 1025 | + + + | Race | Unknown | + + + | Ethnic Group | Unknown | + + + Author + + + | Author | [facility] | | | and [place] | + + + | Organization | [facility] | | [...] Team Providers + +------+ + | Care Cocoa Mill Operator Name | Role | Phone | + +------+ + | Horacio Silvestre DO | PCP | | + +------+ + Reason for Visit + + + | Reason | Comments | + + + | Follow-up | | + + + Encounter Details +--------+---------+ + + + | Date | Type | Department | Care Team | Description | +--------+---------+ + + + | 11/20/ | Office | [facility] | T[place], | Follow-up exam | | 2018 | Visit | [facility] | Jan, [place] [facility] | (Primary Dx); | | | | [facility] [address] | [address] [place] | Cellulitis of right | | | | [address] [place], | [place] [address] | foot | | | | [place] [address] | [phone] | | | | | [phone] | | | +--------+---------+ + + + [...] + + + | Blood Pressure | 142/78 | 11/20/2017 7:53 AM | | | | | PDT | | + + + + + | Pulse | 56 | 11/20/2017 7:53 AM | | | | | PDT | | + + + + + | Temperature | 36.6 C (97.8 F) | 11/20/2017 7:53 AM | | | | | PDT | | + + + + + | Respiratory Rate | 18 | 11/20/2017 7:53 AM | | | | | PDT | | + + + + + | Oxygen Saturation | 91% | 11/20/2017 7:53 AM | | | | | PDT | | + + + + + | Inhaled Oxygen | - | - | | | Concentration | | | | + + + + + | Weight | 98 kg (216 lb) | 11/20/2017 7:53 AM | | | | | PDT | | + + + + + | Height | - | - | | + + + + + | Body Mass Index | 34.86 | 11/16/2017 9:42 AM | | | | | PDT [...] of this encounter Patient Instructions Patient Instructions Jan Reilly, [place] G[employer]IN FARMWORK[place] - 11/20/2017 8:22 AM PDT Cellulitis Cellulitis is an infection of the deep layers of skin. A break in the skin, such as a cut o r scratch, can let bacteria under the skin. If the bacteria get to deep layers of the skin, it can be serious. If not treated, cellulitis can get into the bloodstream and lymph nodes. The infection can then spread throughout the body. This causes serious illness. Cellulitis causes the affected skin to become red, swollen, warm, and sore. The reddened ar eas have a visible border. An open sore may leak fluid (pus). You may have a fever, chills, and pain. Cellulitis is treated with antibiotics taken for 7 to 10 days. An open sore may be cleaned and covered with cool wet gauze. Symptoms should get better 1 to 2 days after treatment is s tarted. Make sure to take all the antibiotics for the full number of days until they are jatinder e. Keep taking the medicine even if your symptoms go away. Home care Follow these tips: Limit the use of the part of your body with cellulitis. If the infection is on your leg, keep your leg raised while sitting. This will help to r educe swelling. Take all of the antibiotic medicine exactly as directed until it is gone. Do not miss an y doses, especially during the first 7 days. Don t stop taking the medicine when your symp toms get better. Keep the affected area clean and dry. Wash your hands with soap and warm water before and after touching your skin. Anyone els e who touches your skin should also wash his or her hands. Don't share towels. Follow-up care Follow up with your healthcare provider, or as advised. If your infection does not go away on the first antibiotic, your healthcare provider will prescribe a different one. When to seek medical advice Call your healthcare provider right away if any of these occur: Red areas that spread Swelling or pain that gets worse Fluid leaking from the skin (pus) Fever higher of 100.4 F (38.0 C) or higher after 2 days on antibiotics Date Last Reviewed: 12/07/201519999047-9556 [employer]. [address] [place] [address]. All righ ts reserved. This information is not intended as a substitute for professional medical care. Always follow your healthcare professional's instructions. documented in this encounter Progress Notes Jan Reilly FNP - 11/20/2017 8:00 AM PDTFormatting of this note might be diffe rent from the original. Chief Complaint Patient presents with Follow-up Assessment and Plan 1. Follow-up exam 2. Cellulitis of right foot - patient is to complete keflex medication and RTC as needed Subjective: Patient ID: Geraldo Mcfadden is a 77 y.o. male who is new to me, is here with his fo drea a follow up from his ER visit. Patient went to the ER on 11/16 with redness and swelling in the right foot and leg. He stated that he had a "cut" under his big toe and then it started . He stated that he is doing much better on the Keflex. I encouraged him to get his feet yamileth cked more often to remove callus and to moisturize to prevent cracking. Both him and his wif e agreed. Review of Systems Constitutional: Negative. Respiratory: Negative. Cardiovascular: Negative. Gastrointestinal: Negative. Musculoskeletal: Positive for back pain. Skin: Positive for color change. Objective: BP 142/78 | Pulse 56 | Temp 36.6 C (97.8 F) (Temporal) | Resp 18 | Wt 98 kg (216 lb ) | SpO2 91% | BMI 34.86 kg/m Physical Exam Constitutional: He is oriented to person, place, and time. He appears well-developed. Cardiovascular: Normal heart sounds. Pulmonary/Chest: Effort normal. Musculoskeletal: Normal range of motion. Neurological: He is alert and oriented to person, place, and time. Skin: Skin is warm and dry. There is erythema (redness for cellulitis). Social History Social History Marital status: Spouse name: N/A Number of children: N/A Years of education: N/A Occupational History Not on file. Social History Main Topics Smoking status: Former Smoker Packs/day: 3.00 Quit date: 1974 Smokeless tobacco: Never Used Alcohol use No Drug use: No Sexual activity: Not on file Other Topics Concern Not on file Social History Narrative No narrative on file Past Medical History: Diagnosis Date Carpal tunnel syndrome, bilateral 05/31/2013 DDD (degenerative disc disease), cervical 05/22/2013 Diabetes mellitus (HCC) GERD (gastroesophageal reflux disease) Gout Hiatal hernia Hypertension Melanoma (HCC) L ear Melanoma (HCC) Left ear 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, left (HCC) Neck pain, chronic 05/22/2013 Neuropathy Paresthesias - both hands 05/22/2013 Thyroid disease Current Outpatient Prescriptions Medication Sig Dispense Refill [...] y mouth every day 7 tablet 0 cephalexin (KEFLEX) 500 mg capsule Take 2 capsules by mouth 2 times daily for 10 days. 40 capsule 0 cholecalciferol (VITAMIN D-3) 1,000 units tablet [...] mouth 2 times daily. 180 capsule 1 sertraline (ZOLOFT) 100 mg tablet Take 150 mg by mouth Daily. tamsulosin (FLOMAX) 0.4 mg CAPS Take 1 capsule by mouth nightly. 90 capsule 3 tiotropium (SPIRIVA) 18 mcg inhalation capsule Inhale 18 mcg into the lungs Daily. traZODone (DESYREL) 50 mg tablet Take 50 mg by mouth nightly. No current facility-administered medications for this visit. Allergies Allergen Reactions Zolpidem Anaphylaxis More than 50% of this 30 min visit was spent providing education and/or counseling to the julian cartagena and his family regarding the issues documented in this note. SHONDA Tirado Note: Part of this report was transcribed using voice recognition software. Every effort wa s made to ensure accuracy. However, inadvertent computerized executive assistant to general counsel errors may be pre sent documented in this encounter Plan of Treatment [...] [place] | | | | | | [address] | | | | | | [phone] | | | | | | | | +--------+---------+ + + + | 02/26/ | Office | Urology | Lillie Fowler | | | 2018 | Visit | | LILLIE [address] | | | | | | [address] | | | | | | [place] | | | | | | [address] | | | | | | [phone] | | | | | | | | +--------+---------+ + + + | 03/16/ | Office | Neurology | Theresa, | | | 2018 | Visit | | SHONDA [address] | | | | [address] [place], | | | | | | [place] [address] | | | | | | [phone] | | | | | | | | +--------+---------+ + + + | 04/12/ | Office | Primary Care | Massimo Ramos | | | 2019 | Visit | | MD Fer [address] | | | | | | [address] [place], [place] | | | | | | [address] | | | | | | | | +--------+---------+ + + + | 10/03/ | Office | Neurology | Fabián Carias MD | | | 2019 | Visit | | [address] | | | | | | [place] | | | | | | [address] | | | | | | | [...] | | | care | | | Audit Clerks Supervisor-C | | | | | | [...] | | | care | | | Audit Clerks Supervisor-C | | | | | | [...] | | | care | | | Audit Clerks Supervisor-C | | | | | | [...] | | | care | | | Audit Clerks Supervisor-C | | | | | | | linical | + +--------+ +---+-----+ + + + | Note: Pt will | | check CBG's daily x1 | | Pt will take Lantis as | | prescribed | + + documented as of this encounter Visit Diagnoses + + | Diagnosis | + + | Follow-up exam - Primary Unspecified follow-up examination | + + | Cellulitis of right foot Cellulitis and abscess of foot, except toes | + + documented in this encounter
--- OUTSIDE RECORDS SUMMARY | ~2019-02-17 | XMS | Encounter Summary ---
Demographics + + + | Address | [address] | | | [place] [address] | + + + | Home Phone [...] Team Providers + +------+ + | Care Ccna Name | Role | Phone | + +------+ + | Horacio Silvestre DO | PCP | | + +------+ + Reason for Visit + + + | Reason | Comments | + + + | Follow-up | diabetic polyneuropathy, neck pain, back pain | + + + Evaluate & Treat (Routine) +--------+--------+ + + + + | Status | Reason | Specialty | Diagnoses / | Referred By | Referred To | | | | | Procedures | Contact | Contact | +--------+--------+ + + + + | Closed | | Neurology | Diagnoses | [facility] | Carias, | | | | | Other | [facility] | Fabián Panda MD | | | | | amnesia | MEDICAL | [address] | | | | | | [address] | [place] | | | | | | [place] | [place] | | | | | | [address] | [address] Phone: | | | | | | [address] | [phone] | | | | | | [place] | Fax: | | | | | | [address] | [phone] | | | | | | Phone: | | | | | | | [phone] | | | | | | | Fax: | | | | | | | [phone] | | +--------+--------+ + + + + Encounter Details +--------+---------+ + + + | Date | Type | Department | Care Team | Description | +--------+---------+ + + + | 09/01/ | Office | [facility] | Fabián Carias MD | Chronic low back | | 2019 | Visit | [facility] | [address] [place] | pain without | | | | CLIN[facility] [address] | [place] | sciatica, | | | | DR [place], | [address] | unspecified back | | | | [place] [address] | | pain laterality | | | | [phone] | | (Primary Dx); Memory | | | | | | disorder; Cognitive | | | | | | dysfunction; | | | | | | Multilevel | | | | | | degenerative disc | | | | | | disease; 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; | | | | | | Chronic pain | | | | | | syndrome | +--------+---------+ + + + Social History [...] + | Blood Pressure | 122/68 | 09/01/2018 8:22 AM | | | | | PDT | | + + + + + | Pulse | 100 | 09/01/2018 8:22 AM | | | | | PDT | | + + + + + | Temperature | - | - | | + + + + + | Respiratory Rate | 20 | 09/01/2018 8:22 AM | | | | | PDT | | + + + + + | Oxygen Saturation | 90% | 09/01/2018 8:22 AM | | | | | PDT | | + + + + + | Inhaled Oxygen | - | - | | | Concentration | | | | + + + + + | Weight | 89.4 kg (197 lb) | 09/01/2018 8:22 AM | | | | | PDT | | + + + + + | Height | 167.6 cm (5' 6") | 09/01/2018 8:22 AM | | | | | PDT | | + + + + + | Body Mass Index | 31.8 | 09/01/2018 8:22 AM | | | | | PDT [...] of this encounter Patient Instructions Patient Instructions Fabián Carias MD - 09/01/2018 8:30 AM PDTFormatting of this note mi ght be different from the original. Patient Instructions [facility] Dr. Fabián Carias, Neurologist Date:09/01/2018 Name:Geraldo Mcfadden :..1940 Please schedule next follow up appt with Dr. 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 magazines, perform word find exercises such as cross word puzz le, and scrabble, other puzzle games like [employer], [employer]. Play computer/mobile applications such as [employer] and Kaola[employer] GAMES Continue Plavix 75 mg and Atorvastatin 10 mg daily stoke prophylaxis Discussed CBD as a oil or salve, and tincture Use can for ambulation and may require a rolling walker Vit E and Vit B complexes (Centrum plus or silver) Any Questions please call JAMAAL Marroquin or Dr. Carias at [facility] Neu[facility] General Neck and Back Pain Both neck and back pain are usually caused by injury to the muscles or ligaments of the spi ne. Sometimes the disks that separate each bone of the spine may cause pain by pressing on a nearby nerve. Back and neck pain may appear after a sudden twisting or bending force (such as in a car accident), or sometimes after a simple awkward movement. In either case, muscle spasm is often present and adds to the pain. Acute neck and back pain usually gets better in 1 to 2 weeks. Pain related to disk disease, arthritis in the spinal joints or spinal stenosis (narrowing of the spinal canal) can becom e chronic and last for months or years. Back and neck pain are common problems. Most people feel better in 1 or 2 weeks, and most o f the rest in 1 to 2 months. Most people can remain active. People have anddescribe pain differently. Pain can be sharp, stabbing, shooting, aching, cramping, or burning Movement, standing, bending, lifting, sitting, or walking may worsen the pain Pain can be localized to one spot or area, or it can be more generalized Pain can spread or radiate upwards, downwards, to the front, or go down your arms Muscle spasm may occur. Most of the time mechanical problems with the muscles or spine cause the pain. it is usuall y caused by an injury, whether known or not, to the muscles or ligaments. While illnesses ca n cause back pain, it is usually not caused by a serious illness. Pain is usually related to physical activity, whether sports, exercise, work, or normal activity. Sometimes it can occ ur without an identifiable cause. This can happen simply by stretching or moving wrong, with out noting pain at the time. Other causes include: Overexertion, lifting, pushing, pulling incorrectly or too aggressively. Sudden twisting, bending or stretching from an accident (car or fall), or accidental mov ement. Poor posture Poor conditioning, lack of regular exercise Spinal disc disease or arthritis Stress , or illness like appendicitis, bladder or kidney infection, pelvic infections Home care Forneck pain:Use a comfortable pillow that supports the head and keeps the spine in a neutral position. The position of the head should not be tilted forward or backward. When in bed, try to find a position of comfort. A firm mattress is best. Try lying flat on your back with pillows under your knees. You can also try lying on your side with your kn ees bent up towards your chest and a pillow between your knees. At first, do not try to stretch out the sore spots. If there is a strain, it is not like the good soreness you get after exercising without an injury. In this case, stretching may make it worse. Don't sit for long periods, as inlong car rides orother travel. This puts more stres s on the lower back than standing or walking. During the first 24 to 72 hours after an injury, apply an ice pack to the painful area f or 20 minutes and then remove it for 20 minutes over a period of 60 to 90 minutes or several times a day. You can alternate ice and heat therapies. Talk with your healthcare provider about the b est treatment for your back or neck pain. As a safety precaution, do not use a heating pad a t bedtime. Sleeping with a heating pad can lead to skin parra or tissue damage. Therapeutic massage can help relax the back and neck muscles without stretching them. Be aware of safe lifting methods and do not lift anything over 15 pounds until all the p ain is gone. Medicines Talk to your healthcare provider before using medicine, especially if you have other medica l problems or are taking other medicines. You may use smzc-bws-fmixyod medicine to control pain, unless another pain medicine was prescribed. If you have chronic conditions like diabetes, liver or kidney disease, stomach u lcers, gastrointestinal bleeding, or are taking blood thinner medicines. Be careful if you are given pain medicines, narcotics, or medicine for muscle spasm. The y can cause drowsiness, and can affect your coordination, reflexes, and judgment. Do not dri ve or operate heavy machinery. Follow-up care Follow up with your healthcare provider, or as advised. Physical therapy or further tests m ay be needed. If X-rays were taken, you will be notified of any new findings that may affect your care. Call 911 Call 911 if any of the following occur: Trouble breathing Confusion Very drowsy or trouble awakening Fainting or loss of consciousness Rapid or very slow heart rate Loss of bowel or bladder control When to seek medical advice Call your healthcare provider right away if any of these occur: Pain becomes worse or spreads into your arms or legs Weakness, numbness or pain in one or both arms or legs Numbness in the groin area Difficulty walking Fever of 100.4F (38C) or higher, or as directed by your healthcare provider Date Last Reviewed: 10/06/201519995907-5346 [employer]. [address] [place] [address], [place] [address]. All righ ts reserved. This information is not intended as a substitute for professional medical care. Always follow your healthcare professional's instructions. Relieving Back Pain Back pain is a common problem. You can strain back muscles by lifting too much weight or ju st by moving the wrong way. Back strain can be uncomfortable, even painful. And it can take weeks or monthsto improve. To help yourself feel better and prevent future back strains, jermaine kumari these tips. Important: Don't give aspirin to children or teens without first discussing it with your [facility] healthcare provider. Ice Ice reduces muscle pain and swelling. It helps most during the first 24 to 48 hours after a n injury. Wrap an ice pack or a bag of frozen peas in a thin towel. Never put ice directly on your skin. Place the ice where your back hurts the most. Don t ice for more than 20 minutes at a time. You can use ice several times a day. Medicines Cvim-lhn-aziqzou pain relieversincludeacetaminophen and anti-inflammatory medicines, wh ich includes aspirin, naproxen,or ibuprofen. They can help ease discomfort. Some also redu ce swelling. Tell your healthcare provider about any medicines you are already taking. Take medicines only as directed. Manipulation and massage Having manipulation by an osteopathic doctor or chiropractor may be helpful. Getting a mass age also may help. Heat After the first 48 hours, heat can relax sore muscles and improve blood flow. Try a warm bath or shower. Or use a heating pad set on low. To prevent a burn, keep a cl oth between you and the heating pad. Don t use a heating pad for more than 15 minutes at a time. Never sleep on a heating p ad. Date Last Reviewed: 09/05/201719992387-2212 [employer]. [address] [place] [address]. All righ ts reserved. This information is not intended as a substitute for professional medical care. Always follow your healthcare professional's instructions. Chronic Pain Painserves an important role. It lets you know something is wrong that needs your attenti on. When the body heals, pain normally goes away. When pain lasts longer than 6 months, it is called chronic pain. This is pain that is present even after the body has healed.Chronic pain can cause mood problems and get in th e way of your relationships and your daily life. A number of conditions can cause chronic pain. Some of the more common include: Previous surgery An old injury Infection Diseases such as diabetes Nerve damage Back injury Arthritis Migraine or other headaches Fibromyalgia Cancer Depression and stress can make chronic pain symptoms worse.In some cases, a cause for the pain can't be found. Treatment Treatmentcangreatly reducepain.In many cases,pain can become less severe, occur l ess often, and interfere less with your daily life.Chronic pain is often treated with a co mbination of medicines,therapies, and lifestyle changes. You will work closely with your [facility] provider to find a treatment plan that works best for you. Ask your healthcare provider for a referral to a pain management specialty center. These can provide the most recent and proven pain management strategies, along with emotional sup port and comprehensive services. Several different types of medicines may be prescribed for chronic pain. Work with your healthcare provider to develop a medicine plan that helps manage your pain. Physical therapy can help reduce certain types of chronic pain. Occupational therapy teaches you how to do routine tasks of daily living in ways that le ssen your discomfort. Counseling can help youcope better with stress and pain. Other therapies such as meditation, yoga, biofeedback, massage, and acupuncture can also help manage chronic pain. Changing certain habits can help reduce chronic pain. They include: ? Eating healthy ? Developing an exercise routine ? Getting enough sleep ? Stopping smoking and limiting alcohol use ? Losing excess weight Follow-up care Follow up with yourhealthcare provider, or as advised. Let yourhealthcare providerkno w if your current treatment plan is working or if changes are needed. Resources For more information, contact: [place] [employer], ahma.[employer]cl[employer].Seratis or 818-973-6995 [place] [employer] Association, theacpa.org or 690-316-6124 Date Last Reviewed: 11/05/201619992003-[address] [employer] [place] [address]. All righ ts reserved. This information is not intended as a substitute for professional medical care. Always follow your healthcare professional's instructions. Managing Chronic Pain Being in pain can be exhausting. You may find you have trouble working, sleeping, or just d oing day-to-day tasks. But you can learn to manage pain, feel better, and regain control of your life. Understanding chronic pain Chronic pain is a serious medical problem. It is defined as pain that lasts longer than 3 m onths. Chronic pain includes pain that you feel regularly, even if it comes and goes. The pa in may be from an ongoing injury or health problem. Or it may be because of a chronic pain s yndrome, such as fibromyalgia. Sometimes pain persists when no cause can be found. Pain should be treated You have a right to have your pain treated. Untreated chronic pain can affect your overall health. It can lead to depression, anxiety, anger, and personality changes. It can also disr upt work, sleep, relationships, and other aspects of normal life. It may not be possible to relieve all of your pain. But it can be reduced to a level you can cope with. Your role in treatment Your healthcare provider will work closely with you on a plan to manage your pain. But it s up to you to put this plan into action. Control of chronic pain is done mainly through se lf-management. This means that you take an active role in your care. Getting support from fa gregory and friends is important too. Planning your treatment Your healthcare provider will first look for a cause of your pain that can be treated. He o r she will also assess your pain level. This may be done by asking you to rate your pain on a scale from 1 (low pain) to 10 (severe pain). Your provider will also ask you to describe t he pain. For example, is your pain sharp or dull? Is it constant or does it come and go? You may be asked to keep a pain log. This is a diary in which you track your pain. It may help identify things that tend to make your pain worse. You and your healthcare provider can make a plan to help prevent and cope with pain on a daily basis. In some cases, you may be refer red to a special pain program or clinic. Your treatment plan may include: Medicines Complementary therapies Mind and body therapies Other medical treatments Getting physical activity Medicines Medicine will most likely be a part of your treatment plan. Your provider will evaluate whi ch are the best medicines for your pain. You may use zlsd-nmu-faqjpnv or prescription medici claudio. You may need to take more than one medicine. It may take some time to find the best med icine or combination of medicines for your pain. Take all medicines as directed. Pain medici claudio can be used in many ways. You may take medicines: Every day to help stay ahead of the pain so that it doesn t flare up At times when pain is worse than usual Before activities that tend to trigger pain To decrease sensitivity to pain Medicines for chronic pain include: Nonsteroidal anti-inflammatory medicines (NSAIDs) for pain from swelling and inflammatio n. Your provider may prescribe a type of NSAID called a PARDO inhibitor. Acetaminophen Anticonvulsants to treat nerve pain called neuropathy Antidepressants to treat neuropathy Muscle relaxants for muscle spasms Topical medicines. These are put on the skin. Opioids, or narcotics, to treat severe pain. These very strong medicines can help ease c ertain kinds of pain. They most often are used for short periods of time. Your provider will monitor your care very closely if you take opioids. Complementary therapies These are treatments that can be used along with medical care to help relieve pain. Look lisa panda a licensed practitioner with experience treating chronic pain. Talk with your healthcare p elva about using complementary therapies such as: Massage Acupuncture and acupressure Chiropractic Vitamins or herbal supplements Mind/body therapies The brain and the body are both part of the pain response. The brain reads the pain signals from the body. This means that your mind has some control over how pain signals are process ed. Mind/body therapies may help change how your brain reads pain signals. They may be learn ed with the help of a trained therapist or in a class. They include: Deep breathing Distraction Visualization Meditation Biofeedback Other medical treatments If other treatments don t work for you, one of these procedures or devices may help: Nerve blocks to numb nerves in a painful area Trigger point injections for painful muscles Steroid injections for joint pain Transcutaneous electrical nerve stimulation (TENS) to block pain signals to the brain Spinal stimulation to block spinal pain Implanted spinal pump that contains pain medicine Ablation using heat, cold, or chemicals to destroy painful nerves Getting physical activity Being physically active has many benefits. It can improve your ability to cope with pain. I t may also help improve your mood, sleep, and overall health. Your healthcare provider can h elp you plan an exercise program that s right for your needs. This may include: Stretching and rxmxn-ph-hoiaxe exercises Low-impact exercise such as walking, biking, swimming, and other water exercise Strength training using light weights Walking up the stairs instead of taking the elevator Riding a bike instead of driving Parking your car farther from your destination You may need to not do high-impact activities. These involve jumping, running, or sudden st arts, stops, or changes of direction. If you haven t exercised in a long time or you have physical limitations, your healthcare provider may refer you to a physical therapist. He or she can teach you stretches and exercises that fit your condition and fitness level. Being active and healthy A healthier lifestyle makes it easier to cope with pain and function better. Follow these t ips: Choose a balance of healthy foods and drinks. Limit alcohol and caffeine. Go to bed at about the same time each day. Don t let pain keep you from others. Spend time with friends and family. Keep your mind active. Read books or take classes. If you re not working, volunteer or join a club or social group. Getting support A support group lets you talk with others who also have chronic pain. Chronic pain support groups can help you feel less isolated. They can also give you tips for coping with pain. To find a local support group, contact your nearest hospital or pain clinic. You may also want to try counseling. Counseling can help you learn coping skills and method s such as visualization. It can also help with mood problems. When choosing a counselor, loo k for someone who has worked with people who have chronic pain. See your provider for regular visits and let him or her know how well treatments are workin g for you. Also reach out to family and friends for help and support. For more support and information, contact these groups: [place] [employer], www.aapainmanage.org [place] [employer], www.painmed.org [place] [employer] Association, www.theacpa.org National Pain Foundation, www.thenationalpainfoundation.org Date Last Reviewed: 03/07/201719996748-[address] [employer] [place] [address]. All righ ts reserved. This information is not intended as a substitute for professional medical care. Always follow your healthcare professional's instructions. Managing Diabetes: The A1C Test Healthy red blood cells have some glucose stuck to them. A high A1C means that unhealthy am ounts of glucose are stuck to the cells. What is the A1C test? Using your meter helps you track your blood sugar every day. But your glucose meter tells y ou the value at the time of testing only. You also need to know if your treatment plan is ke eping you healthy over time.The kxuufyuntcN2I (or glycated hemoglobin) test can help. Th is test measures your average blood sugar level over a few months. A higher A1C result means that you have a higher risk of developing complications. The A1C test The A1C is a blood test done by your healthcare provider. You will likely have an A1C test every3 to 6months. Your blood glucose goal A1C has been shown as a percentage. But it can also be shown as a number representing the e stimated Average Glucose (eAG). Unlike the A1C percentage, eAG is a number similar to the nu mbers listed on your daily glucose monitor. Both A1C and eAG measure the amount of glucose s tuck to a protein called hemoglobin in red blood cells. Your healthcare provider will help y ou figure out what your ideal A1C or eAG should be. Your target number will depend on your a ge, general health, and other factors. If your current number is too high, your treatment pl an may need changes, such as different medicines. Sample results Most people aim for an A1c lower than 7%. That s an eAG less than 154 mg/dL. Or, your [facility] provider may want you to aim for an A1C of 6%. That s an eAG of 126 mg/dL. Glucose calculator Visithttp://professional.diabetes.org/diapro/glucose_calc for a chart that helps convert your A1C percentages into eAG numbers. Date Last Reviewed: 09/06/201519998960-[address] [employer] [place] [address]. All [facility] hospital[facility] ts reserved. This information is not intended as a substitute for professional medical care. Always follow your healthcare professional's instructions. What is Peripheral Neuropathy? Peripheral neuropathy symptoms often start in the toes and move up the foot. Peripheral neuropathy is a disease of the nerves. It most often startsin your feet and ma y also eventually affect the arms. It can affect sensory, motor, or both functions. It may c ause pain or make you unable to sense pain. Sometimes, weakness occurs as well. Lack of pain and weakness makes you more likely to injure yourself without knowing it. But you can learn ways to protect your feet from injury. When nerves are diseased Nerves in your feet carry signals to your brain. Your brain reads those signals and interpr ets them as sensations. When nerves in your feet are diseased, signals may be disrupted or c hanged.The result may be a lack of feeling (numbness)in your feet or other symptoms, suc h as tingling or pain. Symptoms mask pain Symptoms of peripheral neuropathy usually start in your toes. The symptoms slowly spread up your feet and legs as more nerve is affected. These symptoms may decrease sensation in your feet or mask pain. Without pain, you may not notice a cut or even a bone fracture. Cuts may become infected. Fractures may heal poorly and lead to foot deformity. Common causes of peripheral neuropathy Some common causes of peripheral neuropathy include: Diabetes or other endocrine disorders Toxins (such as alcohol) Nutritional deficiencies (such as Vitamin B-12) Kidney disease Injury Repetitive stress (such as carpal tunnel syndrome) Autoimmune disease Cancer and tumors Chemotherapy cancer treatment Arthritis Advanced age Neurological disorders Infection Diagnosis and treatment Diagnosis of peripheral neuropathy includes a complete history and physical exam. Tests i nclude blood tests and imaging often help find the cause. Special nerve tests are often help ful including nerve conduction velocity studies (NCV), and electromyography (EMG). NCV helps find evidence of poor conduction of nerve signals. EMG helps tell whether symptoms are caus ed by muscle or nerve disorders. Treatment focuses on treating the underlying disorder and treating the symptoms usingmedi cines, injections, TENS (transcutaneous electrical nerve stimulation), acupuncture, massage, and others. Date Last Reviewed: 03/07/201719990338-3514 [employer]. [address] [place] [address]. All [facility] ts reserved. This information is not intended as a substitute for professional medical care. Always follow your healthcare professional's instructions. Treating Peripheral Neuropathy Peripheral neuropathy is a disease of the nerves. It most often startsin your feet andm ay alsoeventuallyaffect the arms.Itmay cause pain ormay make you unable to sense p ain.Sometimes, weakness occurs as well.Lack of painand weaknessmakesyou more likel y to injure yourself without knowing it. Learn ways to protect your feet. Check your feet daily for wounds you may not have felt. Av oid parra by testing bath water with your elbow before stepping in. Also,always wear shoes to prevent injury. Regular foot care If you have foot numbness, you may not notice cutting yourself while trimming your nails. T o prevent problems, your healthcare provider may ask you to visit for nail and callus trimmi ng. See your provider for foot care as often as suggested. Check your feet daily Catch problems early by checking your feet every day for changes. Look at the top and botto m of your feet, your heels, and between your toes. It may help to use a mirror. If this is h yin, ask someone to check for you. Call your healthcare provider if you notice a wound, ulce ration, ingrown nail, or any changes in your feet. This includes increased heat, swelling, n umbness, tingling, pain, and redness. Wear proper footwear Always wear shoes and socks, even indoors. Ask your healthcare provider how to choose the r ight shoe. After buying shoes, bring them to your doctor to be checked for proper fit. Take new shoes off every hour or so to check for red pressure areas on your feet. Each time you p ut on your shoes, use your fingers first to feel inside for foreign objects. Common causes of peripheral neuropathy Some common causes of peripheral neuropathy include: Diabetes or other endocrine disorders Toxins (such as alcohol) Nutritional deficiencies (such as Vitamin B-12) Kidney disease Injury Repetitive stress (such as carpal tunnel syndrome) Autoimmune disease Cancer and tumors Chemotherapy Arthritis Advanced age Heredity Infection Diagnosis and treatment Diagnosis of peripheral neuropathy includes a complete history and physical exam. Lab hermes ts including blood work and imaging often help determine the cause. Special nerve tests are often helpful including nerve conduction velocity studies (NCV), and electromyography (EMG). Treatment focuses on treating the underlying disorder and treating symptoms through the use of medicines, injections, TENS (transcutaneous electrical nerve stimulation), acupuncture, massage, and other methods. Date Last Reviewed: 04/07/201719998619-5282 [employer]. [address] [place] [address]. All [facility] ts reserved. This information is not intended as a substitute for professional medical care. Always follow your healthcare professional's instructions. documented in this encounter Progress Notes Cara Campbell RN - 09/01/2018 8:30 AM PDTToradol injection given 60 mg IM, no adverse re actions noted, per pt has had medication before. Electronically signed by: Cara Campbell RN 09/01/2018 9:27 Fabián Posada MD - 09/01/2018 8:30 AM PDT Patient: Geraldo Mcfadden Medical Record: [id number] Date of Services: 09/01/2018 Referring Doctor: Horacio Silvestre DO Chief Complaint: Persistent low back pain History of Present Illness: Mr. Mcfadden was a 78-year-old right-handed male, seen for neurologic evaluation, complaining o f long history of low back pain, persistent. He received a trigger point injection in July 2018 with relief within 3 weeks though has been recurrent. He was given other treatment op tions such as acupuncture treatments, massage therapy, relaxation therapy, bjzf-gjs-enzynby creams and patches, CBD, and cortisone shots. Patent lives in [place] and has difficulty in t ravel time. He prefers to have epidural blocks thru hospital at this time to improve his si gns and symptoms. He had a recent MRI the lumbar spine performed on January 30, 2018 demons trating small disc herniation L1-2 with mild central canal stenosis, L2-3 moderate disc bulg e with osteophyte complex with evidence of mild central canal stenosis, L3-4 mild broad-base d disc osteophyte complex with moderate central canal stenosis, L4-5 broad-based disc bulge with mild central canal stenosis. I discussed with the patient and in great detail his options and possible surgery and prefers no surgical intervention at this time due to his age. His pain scale today is 6 7/10 with Toradol 60 mg IM stat dose In addition, significant history of diabetic polyneuropathy, severe, this is a numbness in his feet, though controlled on Lyrica. I discussed other treatment options such as Ativan/l ight therapy and kmid-pny-oxocfxu creams and CBD oil or salve. His other past medical history of status post VBI, TIA presently on Plavix 75 mg , atorvas tatin 10 mg, and aspirin 325 mg daily for stroke prophylaxis and is been stable. He will ex perience recurrent dizziness at times though result less than a few seconds likely due to hi s end-organ damage from diabetes, involving his ears. He will occasionally experience short-term memory loss and advised to keep reading newspape rs, magazines, perform, and word find exercises. I also advised to continue his multivita mins and vitamin E and B complexes and can also use computer applications such as [employer] on line help him maintain his cognitive skills. I discussed about starting ch olinesterase inhibitors ,however, the patient's is taking so many medications and he prefer s just take multivitamins at this time. The patient and his are hoping once they sell their house in [place] that they can move in town and get aggressive PT/OT and cognitive training Review of Systems: Denies headache, earache, nasal catarrh, diplopia, blurring of vision, d ysphagia, odynophagia, sore throat, neck masses, hearing loss, chest pain, palpitations, leia rtness of breath, cough, hemoptysis, abdominal pain, diarrhea, constipation, bowel or bladde r dysfunction, hematuria, dysuria, lymphadenopathies, echhymoses, rashes, and homicidal or suicidal ideations. Present Medication: Current Outpatient Medications Medication Sig Dispense Refill [...] mouth every morning. 90 capsul e 3 hydroCHLOROthiazide 25 mg tablet Take 1 tablet [...] topically Daily as needed for Dry Skin. Current Facility-Administered Medications Medication Dose Route Frequency Provider Last Rate Last Dose ketorolac (TORADOL) injection 60 mg 60 mg Intramuscular Once Fabián Carias MD Patient's Allergies: Allergies Allergen Reactions Ambien [Zolpidem] Anaphylaxis Neurological Examination: Vitals: 09/01/18 0822 BP: 122/68 Pulse: 100 Resp: 20 PainSc: 6 PainLoc: Back MENTAL STATUS: The patient is awake, alert, and oriented to place, and person, knows the day not the month and year . Speech is fluent. able to repeat, able to name simple items, had difficulty in spelling the world in reverse, MMSE 28/30, able to recall 3 out of 3 objec ts after 5 minutes, CRANIAL NERVES: Funduscopy revealed distinct disc margins. [...] throughout. Tone is normal. SENSORY EXAMINATION: impaired poor perception and vibratory sense at the toes with decreas ed light touch in a stocking distribution up at ankles bilaterally DEEP TENDON REFLEXES: absent throughout. PLANTAR RESPONSES: Downgoing bilaterally GAIT: wide-based stance, ambulates with a cane, unable to tandem gait, Romberg was negativ e CEREBELLAR EXAMINATION: There is no dysmetria on vvqonp-kp-ohzr test. 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 Fabián Carias, Neurologist Date:09/01/2018 Name:Geraldo Mcfadden :..1940 Please schedule next follow up appt with Dr. 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 magazines, perform word find exercises such as cross word puzz le, and scrabble, other puzzle games like [employer], [employer]. Play computer/mobile applications such as [employer] and [employer] GAMES Continue Plavix 75 mg and Atorvastatin 10 mg daily stoke prophylaxis Discussed CBD as a oil or salve, and tincture Use can for ambulation and may require a rolling walker Vit E and Vit B complexes (Centrum plus or silver) Toradol 60 mg IM stat dose for residual low back pain, pain scale 6 7/10 Any Questions please call JAMAAL Marroquin or Dr. Carias at [facility] Neu[facility] General Neck and Back Pain Both neck and back pain are usually caused by injury to the muscles or ligaments of the spi ne. Sometimes the disks that separate each bone of the spine may cause pain by pressing on a nearby nerve. Back and neck pain may appear after a sudden twisting or bending force (such as in a car accident), or sometimes after a simple awkward movement. In either case, muscle spasm is often present and adds to the pain. Acute neck and back pain usually gets better in 1 to 2 weeks. Pain related to disk disease, arthritis in the spinal joints or spinal stenosis (narrowing of the spinal canal) can becom e chronic and last for months or years. Back and neck pain are common problems. Most people feel better in 1 or 2 weeks, and most o f the rest in 1 to 2 months. Most people can remain active. People have anddescribe pain differently. Pain can be sharp, stabbing, shooting, aching, cramping, or burning Movement, standing, bending, lifting, sitting, or walking may worsen the pain Pain can be localized to one spot or area, or it can be more generalized Pain can spread or radiate upwards, downwards, to the front, or go down your arms Muscle spasm may occur. Most of the time mechanical problems with the muscles or spine cause the pain. it is usuall y caused by an injury, whether known or not, to the muscles or ligaments. While illnesses ca n cause back pain, it is usually not caused by a serious illness. Pain is usually related to physical activity, whether sports, exercise, work, or normal activity. Sometimes it can occ ur without an identifiable cause. This can happen simply by stretching or moving wrong, with out noting pain at the time. Other causes include: Overexertion, lifting, pushing, pulling incorrectly or too aggressively. Sudden twisting, bending or stretching from an accident (car or fall), or accidental mov ement. Poor posture Poor conditioning, lack of regular exercise Spinal disc disease or arthritis Stress , or illness like appendicitis, bladder or kidney infection, pelvic infections Home care Forneck pain:Use a comfortable pillow that supports the head and keeps the spine in a neutral position. The position of the head should not be tilted forward or backward. When in bed, try to find a position of comfort. A firm mattress is best. Try lying flat on your back with pillows under your knees. You can also try lying on your side with your kn ees bent up towards your chest and a pillow between your knees. At first, do not try to stretch out the sore spots. If there is a strain, it is not like the good soreness you get after exercising without an injury. In this case, stretching may make it worse. Don't sit for long periods, as inlong car rides orother travel. This puts more stres s on the lower back than standing or walking. During the first 24 to 72 hours after an injury, apply an ice pack to the painful area f or 20 minutes and then remove it for 20 minutes over a period of 60 to 90 minutes or several times a day. You can alternate ice and heat therapies. Talk with your healthcare provider about the b est treatment for your back or neck pain. As a safety precaution, do not use a heating pad a t bedtime. Sleeping with a heating pad can lead to skin parra or tissue damage. Therapeutic massage can help relax the back and neck muscles without stretching them. Be aware of safe lifting methods and do not lift anything over 15 pounds until all the p ain is gone. Medicines Talk to your healthcare provider before using medicine, especially if you have other medica l problems or are taking other medicines. You may use jxkw-sjb-enkpquj medicine to control pain, unless another pain medicine was prescribed. If you have chronic conditions like diabetes, liver or kidney disease, stomach u lcers, gastrointestinal bleeding, or are taking blood thinner medicines. Be careful if you are given pain medicines, narcotics, or medicine for muscle spasm. The y can cause drowsiness, and can affect your coordination, reflexes, and judgment. Do not dri ve or operate heavy machinery. Follow-up care Follow up with your healthcare provider, or as advised. Physical therapy or further tests m ay be needed. If X-rays were taken, you will be notified of any new findings that may affect your care. Call 911 Call 911 if any of the following occur: Trouble breathing Confusion Very drowsy or trouble awakening Fainting or loss of consciousness Rapid or very slow heart rate Loss of bowel or bladder control When to seek medical advice Call your healthcare provider right away if any of these occur: Pain becomes worse or spreads into your arms or legs Weakness, numbness or pain in one or both arms or legs Numbness in the groin area Difficulty walking Fever of 100.4F (38C) or higher, or as directed by your healthcare provider Date Last Reviewed: 10/06/201519993775-0103 [employer]. [address] [place] [address], [place] [address]. All righ ts reserved. This information is not intended as a substitute for professional medical care. Always follow your healthcare professional's instructions. Relieving Back Pain Back pain is a common problem. You can strain back muscles by lifting too much weight or ju st by moving the wrong way. Back strain can be uncomfortable, even painful. And it can take weeks or monthsto improve. To help yourself feel better and prevent future back strains, t ry these tips. Important: Don't give aspirin to children or teens without first discussing it with your [facility] healthcare provider. Ice Ice reduces muscle pain and swelling. It helps most during the first 24 to 48 hours after a n injury. Wrap an ice pack or a bag of frozen peas in a thin towel. Never put ice directly on your skin. Place the ice where your back hurts the most. Don t ice for more than 20 minutes at a time. You can use ice several times a day. Medicines Nvhx-sxt-iekeorm pain relieversincludeacetaminophen and anti-inflammatory medicines, wh ich includes aspirin, naproxen,or ibuprofen. They can help ease discomfort. Some also redu ce swelling. Tell your healthcare provider about any medicines you are already taking. Take medicines only as directed. Manipulation and massage Having manipulation by an osteopathic doctor or chiropractor may be helpful. Getting a mass age also may help. Heat After the first 48 hours, heat can relax sore muscles and improve blood flow. Try a warm bath or shower. Or use a heating pad set on low. To prevent a burn, keep a cl oth between you and the heating pad. Don t use a heating pad for more than 15 minutes at a time. Never sleep on a heating p ad. Date Last Reviewed: 09/05/201719995133-7557 [employer]. [address] [place] [address], [place] [address]. All righ ts reserved. This information is not intended as a substitute for professional medical care. Always follow your healthcare professional's instructions. Chronic Pain Painserves an important role. It lets you know something is wrong that needs your attenti on. When the body heals, pain normally goes away. When pain lasts longer than 6 months, it is called chronic pain. This is pain that is present even after the body has healed.Chronic pain can cause mood problems and get in th e way of your relationships and your daily life. A number of conditions can cause chronic pain. Some of the more common include: Previous surgery An old injury Infection Diseases such as diabetes Nerve damage Back injury Arthritis Migraine or other headaches Fibromyalgia Cancer Depression and stress can make chronic pain symptoms worse.In some cases, a cause for the pain can't be found. Treatment Treatmentcangreatly reducepain.In many cases,pain can become less severe, occur l ess often, and interfere less with your daily life.Chronic pain is often treated with a co mbination of medicines,therapies, and lifestyle changes. You will work closely with your [facility] provider to find a treatment plan that works best for you. Ask your healthcare provider for a referral to a pain management specialty center. These can provide the most recent and proven pain management strategies, along with emotional sup port and comprehensive services. Several different types of medicines may be prescribed for chronic pain. Work with your healthcare provider to develop a medicine plan that helps manage your pain. Physical therapy can help reduce certain types of chronic pain. Occupational therapy teaches you how to do routine tasks of daily living in ways that le ssen your discomfort. Counseling can help youcope better with stress and pain. Other therapies such as meditation, yoga, biofeedback, massage, and acupuncture can also help manage chronic pain. Changing certain habits can help reduce chronic pain. They include: ? Eating healthy ? Developing an exercise routine ? Getting enough sleep ? Stopping smoking and limiting alcohol use ? Losing excess weight Follow-up care Follow up with yourhealthcare provider, or as advised. Let yourhealthcare providerkno w if your current treatment plan is working or if changes are needed. Resources For more information, contact: [place] [employer], ahny.[employer]cl[employer].net or 839-857-8752 [place] [employer], theacpa.org or 418-104-0952 Date Last Reviewed: 11/05/201619993917-[address] [employer] [place] [address], [place] [address]. All righ ts reserved. This information is not intended as a substitute for professional medical care. Always follow your healthcare professional's instructions. Managing Chronic Pain Being in pain can be exhausting. You may find you have trouble working, sleeping, or just d oing day-to-day tasks. But you can learn to manage pain, feel better, and regain control of your life. Understanding chronic pain Chronic pain is a serious medical problem. It is defined as pain that lasts longer than 3 m onths. Chronic pain includes pain that you feel regularly, even if it comes and goes. The pa in may be from an ongoing injury or health problem. Or it may be because of a chronic pain s yndrome, such as fibromyalgia. Sometimes pain persists when no cause can be found. Pain should be treated You have a right to have your pain treated. Untreated chronic pain can affect your overall health. It can lead to depression, anxiety, anger, and personality changes. It can also disr upt work, sleep, relationships, and other aspects of normal life. It may not be possible to relieve all of your pain. But it can be reduced to a level you can cope with. Your role in treatment Your healthcare provider will work closely with you on a plan to manage your pain. But it s up to you to put this plan into action. Control of chronic pain is done mainly through se lf-management. This means that you take an active role in your care. Getting support from fa gregory and friends is important too. Planning your treatment Your healthcare provider will first look for a cause of your pain that can be treated. He o r she will also assess your pain level. This may be done by asking you to rate your pain on a scale from 1 (low pain) to 10 (severe pain). Your provider will also ask you to describe t he pain. For example, is your pain sharp or dull? Is it constant or does it come and go? You may be asked to keep a pain log. This is a diary in which you track your pain. It may help identify things that tend to make your pain worse. You and your healthcare provider can make a plan to help prevent and cope with pain on a daily basis. In some cases, you may be refer red to a special pain program or clinic. Your treatment plan may include: Medicines Complementary therapies Mind and body therapies Other medical treatments Getting physical activity Medicines Medicine will most likely be a part of your treatment plan. Your provider will evaluate whi ch are the best medicines for your pain. You may use ufjy-qlu-mhnnubh or prescription medici claudio. You may need to take more than one medicine. It may take some time to find the best med icine or combination of medicines for your pain. Take all medicines as directed. Pain medici claudio can be used in many ways. You may take medicines: Every day to help stay ahead of the pain so that it doesn t flare up At times when pain is worse than usual Before activities that tend to trigger pain To decrease sensitivity to pain Medicines for chronic pain include: Nonsteroidal anti-inflammatory medicines (NSAIDs) for pain from swelling and inflammatio n. Your provider may prescribe a type of NSAID called a PARDO inhibitor. Acetaminophen Anticonvulsants to treat nerve pain called neuropathy Antidepressants to treat neuropathy Muscle relaxants for muscle spasms Topical medicines. These are put on the skin. Opioids, or narcotics, to treat severe pain. These very strong medicines can help ease c ertain kinds of pain. They most often are used for short periods of time. Your provider will monitor your care very closely if you take opioids. Complementary therapies These are treatments that can be used along with medical care to help relieve pain. Look lisa panda a licensed practitioner with experience treating chronic pain. Talk with your healthcare p elva about using complementary therapies such as: Massage Acupuncture and acupressure Chiropractic Vitamins or herbal supplements Mind/body therapies The brain and the body are both part of the pain response. The brain reads the pain signals from the body. This means that your mind has some control over how pain signals are process ed. Mind/body therapies may help change how your brain reads pain signals. They may be learn ed with the help of a trained therapist or in a class. They include: Deep breathing Distraction Visualization Meditation Biofeedback Other medical treatments If other treatments don t work for you, one of these procedures or devices may help: Nerve blocks to numb nerves in a painful area Trigger point injections for painful muscles Steroid injections for joint pain Transcutaneous electrical nerve stimulation (TENS) to block pain signals to the brain Spinal stimulation to block spinal pain Implanted spinal pump that contains pain medicine Ablation using heat, cold, or chemicals to destroy painful nerves Getting physical activity Being physically active has many benefits. It can improve your ability to cope with pain. I t may also help improve your mood, sleep, and overall health. Your healthcare provider can h elp you plan an exercise program that s right for your needs. This may include: Stretching and rxril-wl-vnsydz exercises Low-impact exercise such as walking, biking, swimming, and other water exercise Strength training using light weights Walking up the stairs instead of taking the elevator Riding a bike instead of driving Parking your car farther from your destination You may need to not do high-impact activities. These involve jumping, running, or sudden st arts, stops, or changes of direction. If you haven t exercised in a long time or you have physical limitations, your healthcare provider may refer you to a physical therapist. He or she can teach you stretches and exercises that fit your condition and fitness level. Being active and healthy A healthier lifestyle makes it easier to cope with pain and function better. Follow these t ips: Choose a balance of healthy foods and drinks. Limit alcohol and caffeine. Go to bed at about the same time each day. Don t let pain keep you from others. Spend time with friends and family. Keep your mind active. Read books or take classes. If you re not working, volunteer or join a club or social group. Getting support A support group lets you talk with others who also have chronic pain. Chronic pain support groups can help you feel less isolated. They can also give you tips for coping with pain. To find a local support group, contact your nearest hospital or pain clinic. You may also want to try counseling. Counseling can help you learn coping skills and method s such as visualization. It can also help with mood problems. When choosing a counselor, loo k for someone who has worked with people who have chronic pain. See your provider for regular visits and let him or her know how well treatments are workin g for you. Also reach out to family and friends for help and support. For more support and information, contact these groups: [place] [employer], www.aapainmanage.org [place] [employer], www.painmed.org [place] [employer], www.theacpa.org National Pain Foundation, www.thenationalpainfoundation.org Date Last Reviewed: 03/07/201719994021-[address] [place] [address]. All righ ts reserved. This information is not intended as a substitute for professional medical care. Always follow your healthcare professional's instructions. Managing Diabetes: The A1C Test Healthy red blood cells have some glucose stuck to them. A high A1C means that unhealthy am ounts of glucose are stuck to the cells. What is the A1C test? Using your meter helps you track your blood sugar every day. But your glucose meter tells y ou the value at the time of testing only. You also need to know if your treatment plan is ke eping you healthy over time.The bsiegargiqW8W (or glycated hemoglobin) test can help. Th is test measures your average blood sugar level over a few months. A higher A1C result means that you have a higher risk of developing complications. The A1C test The A1C is a blood test done by your healthcare provider. You will likely have an A1C test every3 to 6months. Your blood glucose goal A1C has been shown as a percentage. But it can also be shown as a number representing the e stimated Average Glucose (eAG). Unlike the A1C percentage, eAG is a number similar to the nu mbers listed on your daily glucose monitor. Both A1C and eAG measure the amount of glucose s tuck to a protein called hemoglobin in red blood cells. Your healthcare provider will help y ou figure out what your ideal A1C or eAG should be. Your target number will depend on your a ge, general health, and other factors. If your current number is too high, your treatment pl an may need changes, such as different medicines. Sample results Most people aim for an A1c lower than 7%. That s an eAG less than 154 mg/dL. Or, your [facility] provider may want you to aim for an A1C of 6%. That s an eAG of 126 mg/dL. Glucose calculator Visithttp://professional.diabetes.org/diapro/glucose_calc for a chart that helps convert your A1C percentages into eAG numbers. Date Last Reviewed: 09/06/201519997496-8914 [employer]. [address] [place] [address]. All righ ts reserved. This information is not intended as a substitute for professional medical care. Always follow your healthcare professional's instructions. What is Peripheral Neuropathy? Peripheral neuropathy symptoms often start in the toes and move up the foot. Peripheral neuropathy is a disease of the nerves. It most often startsin your feet and ma y also eventually affect the arms. It can affect sensory, motor, or both functions. It may c ause pain or make you unable to sense pain. Sometimes, weakness occurs as well. Lack of pain and weakness makes you more likely to injure yourself without knowing it. But you can learn ways to protect your feet from injury. When nerves are diseased Nerves in your feet carry signals to your brain. Your brain reads those signals and interpr ets them as sensations. When nerves in your feet are diseased, signals may be disrupted or c hanged.The result may be a lack of feeling (numbness)in your feet or other symptoms, suc h as tingling or pain. Symptoms mask pain Symptoms of peripheral neuropathy usually start in your toes. The symptoms slowly spread up your feet and legs as more nerve is affected. These symptoms may decrease sensation in your feet or mask pain. Without pain, you may not notice a cut or even a bone fracture. Cuts may become infected. Fractures may heal poorly and lead to foot deformity. Common causes of peripheral neuropathy Some common causes of peripheral neuropathy include: Diabetes or other endocrine disorders Toxins (such as alcohol) Nutritional deficiencies (such as Vitamin B-12) Kidney disease Injury Repetitive stress (such as carpal tunnel syndrome) Autoimmune disease Cancer and tumors Chemotherapy cancer treatment Arthritis Advanced age Neurological disorders Infection Diagnosis and treatment Diagnosis of peripheral neuropathy includes a complete history and physical exam. Tests i nclude blood tests and imaging often help find the cause. Special nerve tests are often help ful including nerve conduction velocity studies (NCV), and electromyography (EMG). NCV helps find evidence of poor conduction of nerve signals. EMG helps tell whether symptoms are caus ed by muscle or nerve disorders. Treatment focuses on treating the underlying disorder and treating the symptoms usingmedi cines, injections, TENS (transcutaneous electrical nerve stimulation), acupuncture, massage, and others. Date Last Reviewed: 03/07/201719994111-9893 [employer]. [address] [place] [address]. All righ ts reserved. This information is not intended as a substitute for professional medical care. Always follow your healthcare professional's instructions. Treating Peripheral Neuropathy Peripheral neuropathy is a disease of the nerves. It most often startsin your feet andm ay alsoeventuallyaffect the arms.Itmay cause pain ormay make you unable to sense p ain.Sometimes, weakness occurs as well.Lack of painand weaknessmakesyou more likel y to injure yourself without knowing it. Learn ways to protect your feet. Check your feet daily for wounds you may not have felt. Av oid parra by testing bath water with your elbow before stepping in. Also,always wear shoes to prevent injury. Regular foot care If you have foot numbness, you may not notice cutting yourself while trimming your nails. T o prevent problems, your healthcare provider may ask you to visit for nail and callus trimmi ng. See your provider for foot care as often as suggested. Check your feet daily Catch problems early by checking your feet every day for changes. Look at the top and botto m of your feet, your heels, and between your toes. It may help to use a mirror. If this is h yin, ask someone to check for you. Call your healthcare provider if you notice a wound, ulce ration, ingrown nail, or any changes in your feet. This includes increased heat, swelling, n umbness, tingling, pain, and redness. Wear proper footwear Always wear shoes and socks, even indoors. Ask your healthcare provider how to choose the r ight shoe. After buying shoes, bring them to your doctor to be checked for proper fit. Take new shoes off every hour or so to check for red pressure areas on your feet. Each time you p ut on your shoes, use your fingers first to feel inside for foreign objects. Common causes of peripheral neuropathy Some common causes of peripheral neuropathy include: Diabetes or other endocrine disorders Toxins (such as alcohol) Nutritional deficiencies (such as Vitamin B-12) Kidney disease Injury Repetitive stress (such as carpal tunnel syndrome) Autoimmune disease Cancer and tumors Chemotherapy Arthritis Advanced age Heredity Infection Diagnosis and treatment Diagnosis of peripheral neuropathy includes a complete history and physical exam. Lab hermes ts including blood work and imaging often help determine the cause. Special nerve tests are often helpful including nerve conduction velocity studies (NCV), and electromyography (EMG). Treatment focuses on treating the underlying disorder and treating symptoms through the use of medicines, injections, TENS (transcutaneous electrical nerve stimulation), acupuncture, massage, and other methods. Date Last Reviewed: 04/07/201719999284-3910 [employer]. [address] [place] [address]. All [facility] ts reserved. This information is not intended as a substitute for professional medical care. Always follow your healthcare professional's instructions. Fabián Carias MD09/01/20189:13 Electronically signed NOTE: Part of this report was transcribed using voice recognition software. Every effort was made to ensure accuracy. However, inadvertent computerize wool hat sanding machine operator errors may be present documented in this enc ounter Plan of Treatment +--------+---------+ + + + [...] [place] | | | | | | [address] | | | | | | [phone] | | | | | | | | +--------+---------+ + + + | 02/26/ | Office | Urology | Lillie Fowler | | | 2018 | Visit | | LILLIE Lopez [address] | | | | | | [address] | | | | | | [place] | | | | | | [address] | | | | | | [phone] | | | | | | | | +--------+---------+ + + + | 03/16/ | Office | Neurology | Theresa, | | | 2018 | Visit | | SHONDA M[address]ney [address] | | | | | [address] [place], | | | | | | [place] [address] | | | | | | [phone] | | | | | | | | +--------+---------+ + + + | 04/12/ | Office | Primary Care | Massimo Ramos | | | 2019 | Visit | | MD Fer [address] | | | | | | [address] [place] | | | | | | [address] | | | | | | | | +--------+---------+ + + + | 10/03/ | Office | Neurology | Fabián Carias MD | | | 2019 | Visit | | [address] | | | | | | [place] | | | | | | [address] | | | | | | | | +--------+---------+ + + + + + +--------+ + + | Name | Type | Priori | Associated Diagnoses | Order Schedule | | | | ty | | | + + +--------+ + + | FL PALMA Lumbar | Imaging | Routin | Chronic low back | Expected: | | Transforaminal | | e | pain without | 09/01/2018, Expires: | | | | | sciatica, | 09/02/2019 | | | | | unspecified back | | | | | | pain laterality | | + + +--------+ + + | NEUROTRAX: | Neurology | Today | Memory disorder | 1 Occurrences | | COMPUTERIZED | | | Cognitive | starting 09/01/2018 | | NEUROCOGNATIVE | | | dysfunction | until 09/02/2019 | | TESTING | | | | | + + [...] | | | care | | | T[facility] Weaver-C | | | | | | | [...] | | | care | | | T[facility] Weaver-C | | | | | | | [...] | | | care | | | T[facility] Weaver-C | | | | | | | [...] | | | care | | | Tire Cord Weaver-C | | | | | | | [...] laterality - Primary | + + | Memory disorder Memory loss | + + | Cognitive dysfunction Unspecified persistent mental disorders due to conditions | | classified elsewhere | + + | Multilevel degenerative disc disease Degeneration of intervertebral disc, site | | unspecified | + + | Neurologic gait disorder Abnormality of gait | + + | Chronic pain syndrome | + + documented in this encounter Administered Medications + +--------+ +-------+------+ + | Medication Order | MAR | Action | Dose | Rate | Site | | | Action | Date | | | | + +--------+ +-------+------+ + | ketorolac (TORADOL) injection | Given | 09/02/19 | 60 mg | | Ventrogl | | 60 mg 60 mg, Intramuscular, | | 19 9:27 | | | uteal-Le | | ONCE, 09/01/18 at 0915, For 1 | | AM PDT | | | ft | | dose | | | | | | + +--------+ +-------+------+ + +---+---+ | | | +---+---+ documented in this encounter Additional Health Concerns + + + + | Infection | Noted Time | Resolved Time | + + + + | Methicillin-resistant Staphylococcus aureus | 07/20/2018 4:00 PM | | | | PDT | | + + + + documented as of this encounter
--- OUTSIDE RECORDS SUMMARY | ~2019-02-17 | XMS | Encounter Summary ---
Demographics + + + | Address | [address] | | | [place] [address] | + + + | Home Phone | | + + + | Preferred Language | Unknown | + + + | Marital Status | | + + + | Nondenominational Affiliation | 1025 | + + + | Race | Unknown | + + + | Ethnic Group | Unknown | + + + Author + + + | Author | [facility] | | | and [place] | + + + | Organization | [facility] | | | [...] Team Providers + +------+ + | Care Psychology Physician Name | Role | Phone | [...] | +--------+ + + + + | 03/23/ | Telephone | [facility] | Horacio Silvestre, | Medication Question | | 2018 | | [facility] | [address] [place] | | | | | [facility] [address] | [facility], [place] | | | | [address] [place], | [address] | | | | | [place] [address] | [phone] | | | | | [phone] | | | +--------+ + + + [...] [place] | | | | | | [address] | | | | | | [phone] | | | | | | | | +--------+---------+ + + + | 02/26/ | Office | Urology | Lillie Fowler | | | 2018 | Visit | | LILLIE Lopez [address] | | | | | | [address] | | | | | | [place], [place] | | | | | | [address] | | | | | | [phone] | | | | | | | | +--------+---------+ + + + | 03/16/ | Office | Neurology | Theresa, | | | 2019 | Visit | | SHONDA M[address] | | | | | [address] [place], | | | | | | [place] [address] | | | | | | [phone] | | | | | | | | +--------+---------+ + + + | 04/12/ | Office | Primary Care | Massimo Ramos | | | 2019 | Visit | | MD Fer [address] | | | | | | [place] | | | | | | [address] | | | | | | | | +--------+---------+ + + + | 10/03/ | Office | Neurology | Fabián Carias MD | | | 2019 | Visit | | [address] | | | | | | [place] | | | | | | [address] | | | | | | | [...] | | | care | | | [facility] | | | | | | | [...] | | | care | | | [facility] | | | | | | | [...] | | | care | | | [facility] | | | | | | | [...] | | | care | | | [facility] | | | | | | | linical | + +--------+ +---+-----+ + + + | Note: Pt will | | check CBG's daily x1 | | Pt will take Lantis as | | prescribed | + + documented as of this encounter Visit Diagnoses Not on filedocumented in this encounter"
--- OUTSIDE RECORDS SUMMARY | ~2019-02-17 | XMS | Encounter Summary ---
Demographics + + + | Address | [address] | | | [place] [address] | + + + | Home Phone [...] Team Providers + +------+ + | Care Spa Consultant Name | Role | Phone | + +------+ + | Horacio Silvestre DO | PCP | | + +------+ + Reason for Visit + + + | Reason | Comments | + + + | Procedure | TPI LUMBAR | + + + Encounter Details +--------+ + + + + | Date | Type | Department | Care Team | Description | +--------+ + + + + | 07/31/ | Procedure | [facility] | Fabián Carias MD | Chronic low back | | 2019 | visit | [facility] | [address] | pain without | | | | CLINIC [address] | [place] | sciatica, | | | | [address] [place], | [address] | unspecified back | | | | [place] [address] | | pain laterality | | | | [phone] | | (Primary Dx); Sprain | | | | | | of ligaments of | | | | | | lumbar spine, | | | | | | sequela | +--------+ + + + + Social [...] + + + | Blood Pressure | 110/65 | 07/31/2018 3:47 PM | | | | | PDT | | + + + + + | Pulse | 94 | 07/31/2018 3:47 PM | | | | | PDT | | + + + + + | Temperature | - | - | | + + + + + | Respiratory Rate | 18 | 07/31/2018 3:47 PM | | | | | PDT | | + + + + + | Oxygen Saturation | 98% | 07/31/2018 3:47 PM | | | | | PDT | | + + + + + | Inhaled Oxygen | - | - | | | Concentration | | | | + + + + + | Weight | 93.4 kg (206 lb) | 07/31/2018 3:47 PM | | | | | PDT | | + + + + + | Height | 167.6 cm (5' 6") | 07/31/2018 3:47 PM | | | | | PDT | | + + + + + | Body Mass Index | 33.25 | 07/31/2018 3:47 PM | | | | | PDT [...] encounter Progress Notes Cara Campbell RN - 07/31/2018 3:45 PM PDTTrigger Point lower back. Pt. had no complaint s after trigger point, BP 128/80 Pulse 88. Pt. given instructions verbally and written, pt s tated understanding. Pt ambulated to lobby without difficulty or assistance. Electronically signed by: Cara Campbell RN 07/31/2018 16:36 Toradol injection given 60 mg IM, no adverse reactions noted, per pt has had medication bef ore. Electronically signed by: Cara Campbell RN 07/31/2018 16:20 documented in this encounter Plan of Treatment [...] [place] | | | | | | [address] | | | | | | [phone] | | | | | | | | +--------+---------+ + + + | 02/26/ | Office | Urology | Lillie Fowler | | | 2018 | Visit | | LILLIE Lopez [address] | | | | | | [address] | | | | | | [place] | | | | | | [address] | | | | | | [phone] | | | | | | | | +--------+---------+ + + + | 03/16/ | Office | Neurology | Theresa, | | | 2018 | Visit | | [address] | | | [address] [place], | | | | | | [place] [address] | | | | | | [phone] | | | | | | | | +--------+---------+ + + + | 04/12/ | Office | Primary Care | Massimo Ramos | | | 2019 | Visit | | MD Fer [address] | | | | | | [place] | | | | | | [address] | | | | | | | | +--------+---------+ + + + | 10/03/ | Office | Neurology | Fabián Carias MD | | | 2019 | Visit | | [address] | | | | | | [place] | | | | | | [address] | | | | | | | [...] | | | care | | | Threshing 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-C | | | | | [...] | | | care | | | Threshing 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-C | | | | | [...] | | | care | | | Threshing 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-C | | | | | [...] | | | care | | | Threshing 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-C | | | | | [...] | + +--------+ + + + | NE INJECT TRIGGER | Routin | 07/31/2018 | Sprain of | Results for this | | POINT, 1 OR 2 | e | 3:45 PM | ligaments of lumbar | procedure are [...] | | + +--------+ +--------+------+------+ | bupivacaine (MARCAINE) 0.5% | Given | 08/01/19 | 10 mLs | | | | injection 10 mL 10 mL, Other, | | 19 4:36 | | | | | ONCE, 07/31/18 at 1700, For 1 | | PM PDT | | | | | dose, IM, | | | | | | + +--------+ +--------+------+------+ +---+---+ | | | +---+---+ + +-------+ +-------+---+ + | ketorolac (TORADOL) injection | Given | 08/01/19 | 60 mg | | Ventrogl | | 60 mg 60 mg, Intramuscular, | | 19 4:20 | | | uteal-Ri | | ONCE, 07/31/18 at 1630, For 1 | | PM PDT | | | ght | | dose | | | | | | + +-------+ +-------+---+ + +---+---+ | | | +---+---+ + +-------+ +--------+---+ + | lidocaine 1% injection 20 mL | Given | 08/01/19 | 20 mLs | | Other | | 20 mL, Intramuscular, ONCE, Fri | | 19 4:36 | | | (Comment | | 07/31/18 at 1700, For 1 dose | | PM PDT | | | ) | + +-------+ +--------+---+ + +---+---+ | | | +---+---+ + +-------+ +--------+---+ + | methylPREDNISolone acetate | Given | 08/01/19 | 400 mg | | Other | | (DEPO-MEDROL) 40 mg/mL injection | | 19 4:36 | | | (Comment | | 400 mg 400 mg, Intramuscular, | | PM PDT | | | ) | | ONCE, 07/31/18 at 1700, For 1 | | | | | [...]
--- OUTSIDE RECORDS SUMMARY | ~2019-02-17 | XMS | Encounter Summary ---
Demographics + + + | Address | [address] | | | [place] [address] | + + + | Home Phone | | + + + | Preferred Language | Unknown | + + + | Marital Status | | + + + | Jehovah'S Witness Affiliation | 1025 | + + + | Race | Unknown | + + + | Ethnic Group | Unknown | + + + Author + + + | Author | [facility] | | | and [place] | + + + | Organization | [facility] | | | [...] Team Providers + +------+ + | Care Icing Mixer Name | Role | Phone | + [...] | | | | [place] | [address] | | | | | [address] | [phone] | | | | | [phone] | | | +--------+ + + + [...] [place] | | | | | | [address] | | | | | | [phone] | | | | | | | | +--------+---------+ + + + | 02/26/ | Office | Urology | Lillie Fowler | | | 2018 | Visit | | LILILE Lopez [address] | | | | | | [address] | | | | | | [place], [place] | | | | | | [address] | | | | | | [phone] | | | | | | | | +--------+---------+ + + + | 03/16/ | Office | Neurology | Theresa, | | | 2018 | Visit | | SHONDA M[address] | | | | [address] [place], | | | | | | [place] [address] | | | | | | [phone] | | | | | | | | +--------+---------+ + + + | 01/06/ | Office | Primary Care | Massimo Ramos Pedro Luis | | | 2019 | Visit | | MD Fer [address] | | | | | | [place] | | | | | | [address] | | | | | | | | +--------+---------+ + + + | 10/03/ | Office | Neurology | Fabián Carias MD | | | 2019 | Visit | | [address] | | | | | | [place] | | | | | | [address] | | | | | | | [...] | | | care | | | Phytochemistry Professor-C | | | | | | | [...] | | | care | | | Phytochemistry Professor-C | | | | | | | [...] | | | care | | | Phytochemistry Professor-C | | | | | | | [...] | | | care | | | Phytochemistry Professor-C | | | | | | | [...]
--- OUTSIDE RECORDS SUMMARY | ~2019-02-17 | XMS | Encounter Summary ---
Demographics + + + | Address | [address] | | | [place] [address] | + + + | Home Phone | | + + + | Preferred Language | Unknown | + + + | Marital Status | | + + + | Protestant Affiliation | 1025 | + + + | Race | Unknown | + + + | Ethnic Group | Unknown | + + + Author + + + | Author | [facility] | | | and [place] | + + + | Organization | [facility] | [...] | + + +---------+ + | Juan Lesa | ECON | Unknown | | + + +---------+ + Care Team Providers + +------+ + | Care Brick Paving Checker Name | Role | Phone | + +------+ + | Horacio Silvestre DO | PCP | | + +------+ + Reason for Visit + + + | Reason | Comments | + + + | Appointment Question | Echo & EEG | + + + Encounter Details +--------+ + + + + | Date | Type | Department | Care Team | Description | +--------+ + + + + | 07/28/ | Telephone | [facility] | Cara Campbell RN | Appointment Question | | 2019 | | [facility] | | (Echo & EEG) | | | | CLINIC [address] | | | | | | [address] [place], | | | | | | [place] [address] | | | | | | [phone] | | | +--------+ + + + [...] [place] | | | | | | [address] | | | | | | [phone] | | | | | | | | +--------+---------+ + + + | 02/26/ | Office | Urology | Lillie Fowler | | | 2018 | Visit | | LILLIE [address] | | | | | | [address] | | | | | | [place], [place] | | | | | | [address] | | | | | | [phone] | | | | | | | | +--------+---------+ + + + | 03/16/ | Office | Neurology | Theresa, | | | 2018 | Visit | | [address] | | | | | | [address] [place], | | | | | | [place] [address] | | | | | | [phone] | | | | | | | | +--------+---------+ + + + | 04/12/ | Office | Primary Care | Massimo Ramos Pedro Luis | | | 2019 | Visit | | [facility] [address] | | | | | | [address] [place] | | | | | | [address] | | | | | | | | +--------+---------+ + + + | 10/03/ | Office | Neurology | Fabián Carias MD | | | 2019 | Visit | | [address] | | | | | | [place] | | | | | | [address] | | | | | | | [...] | | | care | | | Commercial Green Retrofit Architect-C | | | | | | | [...] | | | care | | | Commercial Green Retrofit Architect-C | | | | | | | [...] | | | care | | | Commercial Green Retrofit Architect-C | | | | | | | [...] | | | care | | | Commercial Green Retrofit Architect-C | | | | | | | [...]
--- OUTSIDE RECORDS SUMMARY | ~2019-02-17 | XMS | Encounter Summary ---
Demographics + + + | Address | [address] | | | [place] [address] | + + + | Home Phone [...] Team Providers + +------+ + | Care Tobacco Packer Name | Role | Phone | + +------+ + | Horacio Silvestre DO | PCP | | + +------+ + Encounter Details +--------+ + + + + | Date | Type | Department | Care Team | Description | +--------+ + + + + | 02/04/ | Orders Only | [facility] | Massimo Ramos | Type 2 diabetes | | 2019 | | [facility] | [address] | mellitus with other | | | | [facility] [address] [place], [place] | specified | | | | [address] [place], | [address] | complication, | | | | [place] [address] | | without long-term | | | | [phone] | | current use of | | | | | | insulin (HCC) | | | | | | (Primary Dx) | +--------+ + + + + Social [...] [place] | | | | | | [address] | | | | | | [phone] | | | | | | | | +--------+---------+ + + + | 02/26/ | Office | Urology | Lillie Fowler | | | 2018 | Visit | | [address] | | | | | | [address] | | | | | | [place], [place] | | | | | | [address] | | | | | | [phone] | | | | | | | | +--------+---------+ + + + | 03/16/ | Office | Neurology | Theresa, | | | 2018 | Visit | | [address] | | | | | [address] [place], | | | | | | [place] [address] | | | | | | [phone] | | | | | | | | +--------+---------+ + + + | 04/12/ | Office | Primary Care | Massimo Ramos | | | 2019 | Visit | | [address] | | | | | | [place] | | | | | | [address] | | | | | | | | +--------+---------+ + + + | 10/03/ | Office | Neurology | Fabián Carias MD | | | 2019 | Visit | | [address] | | | | | | [place] | | | | | | [address] | | | | | | | | +--------+---------+ + + + + +------+--------+ + + | Name | Type | Priori | Associated Diagnoses | Order Schedule | | | | ty | | | + +------+--------+ + + | Comprehensive | Lab | Routin | Type 2 diabetes | 1 Occurrences | | Metabolic Panel | | e | mellitus with other | starting 02/04/2019 | | | | | specified | until 02/05/2020 | | | | | complication, | | | | | | without long-term | | | | | | current use of | | | | | | insulin ([facility]) | | + +------+--------+ + + | Hemoglobin A1C | Lab | Routin | Type 2 diabetes | 1 Occurrences | | | | e | mellitus with other | starting 02/04/2019 | | | | | specified | until 02/05/2020 | | | | | complication, | | | | | | without long-term | | | | | | current use of | | | | | | insulin (HCC) | | + +------+--------+ + + | Microalbumin/Creatin | Lab | Routin | Type 2 diabetes | 1 Occurrences | | ine Ratio, Urine | | e | mellitus with other | starting 02/04/2019 | | | | | specified | until 02/05/2020 | | | | | complication, | | | | | | without long-term | | | | | | current use of | | | | | | insulin (HCC) | | + +------+--------+ + + | Lipid Panel | Lab | Routin | Type 2 diabetes | 1 Occurrences | | | | e | mellitus with other | starting 02/04/2019 | | | | | specified | until 02/05/2020 | | | | | complication, | | | | | | without long-term | | | | | | current use of | | | | | | insulin (HCC) | | + +------+--------+ + + documented as [...] | | | care | | | Waste Hand-C | | | | | | [...] | | | care | | | Waste Hand-C | | | | | | [...] | | | care | | | Waste Hand-C | | | | | | [...] | | | care | | | Waste Hand-C | | | | | | [...] insulin (HCC) - Primary | + + documented in this encounter Additional Health Concerns + + + + | Infection | Noted Time | Resolved Time | + + + + | Methicillin-resistant Staphylococcus aureus | 07/20/2018 4:00 PM | | | | PDT | | + + + + documented as of this encounter"
--- OUTSIDE RECORDS SUMMARY | ~2019-02-17 | XMS | Encounter Summary ---
Demographics + + + | Address | [address] | | | [place] [address] | + + + | Home Phone [...] Team Providers + +------+ + | Care Hand Coremaker Name | Role | Phone | + [...] [id number] | | | | | [place] [address] | | | | | | [phone] | | | +--------+ + + + [...] [place] | | | | | | [address] | | | | | | [phone] | | | | | | | | +--------+---------+ + + + | 02/26/ | Office | Urology | Lillie Fowler | | | 2018 | Visit | | [address] | | | | | | [address] | | | | | | [place], [place] | | | | | | [address] | | | | | | [phone] | | | | | | | | +--------+---------+ + + + | 03/16/ | Office | Neurology | Theresa, | | | 2018 | Visit | | [address] | | | | [address] [place], | | | | | | [place] [address] | | | | | | [phone] | | | | | | | | +--------+---------+ + + + | 04/12/ | Office | Primary Care | Massimo Ramos Pedro Luis | | | 2019 | Visit | | [facility] [address] | | | | | | [place] | | | | | | [address] | | | | | | | | +--------+---------+ + + + | 10/03/ | Office | Neurology | Fabián Carias MD | | | 2019 | Visit | | [address] | | | | | | [place] | | | | | | [address] | | | | | | | [...] | | | care | | | Rental Sales Representative-C | | | | | | [...] | | | care | | | Rental Sales Representative-C | | | | | | [...] | | | care | | | Rental Sales Representative-C | | | | | | [...] | | | care | | | Rental Sales Representative-C | | | | | | [...]
--- OUTSIDE RECORDS SUMMARY | ~2019-02-17 | XMS | Encounter Summary ---
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 | Role | Phone | + [...] | Diagnoses | Carias, | Cc Wgr Echo | | | | | Syncope, | Jalyn R, | [address] | | | | | unspecified | [address] | [place] | | | | | syncope type | [address], | [place], [place] | | | | | Procedures | [place] | [address] | | | | | ECHO | [place], [place] | Phone: | | | | | Complete | [id number] | [phone] | | | | | | Phone: | Fax: | | | | | | [phone] | [phone] | | | | | | Fax: | | | | | | | [phone] | | +--------+--------+ + + + + Diagnostic/Screening (Routine) +--------+--------+ + + + + | Status | Reason | Specialty | Diagnoses / | Referred By | Referred To | | | | | Procedures | Contact | Contact | +--------+--------+ + + + + | Closed | | Radiology | Diagnoses | Carias, | Cc Wgr Mri | | | | | Syncope, | Jalyn R, | [address] | | | | | unspecified | [address] | [place] | | | | | syncope type | [address], | [place], [place] | | | | | Procedures | [place] | [address] | | | | | MRI Brain | [place], [place] | Phone: | | | | | wo Contrast | [address] | [phone] | | | | | | Phone: | Fax: | | | | | | [phone] | [phone] | | | | | | Fax: | | | | | | | [phone] | | +--------+--------+ + + + + Reason for Visit + + + | Reason | Comments | + + + | Follow-up | TIA/post GRH | + + + Encounter Details +--------+---------+ + + + | Date | Type | Department | Care Team | Description | +--------+---------+ + + + | 05/19/ | Office | [place] [facility] | Jalyn Carias MD | Syncope, unspecified | | 2019 | Visit | [facility] | [address] [place] | syncope type | | | | CLINIC [address] | [place] | (Primary Dx); Type 2 | | | | DR [place], | [address] | diabetes mellitus | | | | [place] [address] | | with diabetic | | | | [phone] | | polyneuropathy, with | | | | | | long-term current | | | | | | use of insulin | | | | | | ([facility]); Syncope and | | | | | | collapse; Chronic | | | | | | low back pain | | | | | | without sciatica, | | | | | | unspecified back | | | | | | pain laterality; | | | | | | Sprain of ligaments | | | | | | of lumbar spine, | | | | | | sequela ; Numbness | +--------+---------+ + + + Social History [...] + + + | Blood Pressure | 128/70 | 05/19/2018 2:46 PM | | | | | PST | | + + + + + | Pulse | 81 | 05/19/2018 2:46 PM | | | | | PST | | + + + + + | Temperature | - | - | | + + + + + | Respiratory Rate | 20 | 05/19/2018 2:46 PM | | | | | PST | | + + + + + | Oxygen Saturation | 90% | 05/19/2018 2:46 PM | | | | | PST | | + + + + + | Inhaled Oxygen | - | - | | | Concentration | | | | + + + + + | Weight | 96.6 kg (213 lb) | 05/19/2018 2:46 PM | | | | | PST | | + + + + + | Height | 167.6 cm (5' 6") | 05/19/2018 2:46 PM | | | | | PST | | + + + + + | Body Mass Index | 34.38 | 05/19/2018 2:46 PM | | | | | PST [...] of this encounter Patient Instructions Patient Instructions Jalyn Carias MD - 05/19/2018 2:45 PM PSTFormatting of this note mi ght be different from the original. Patient Instructions [facility] Dr. Jalyn Carias, Neurologist Date:05/19/2018 Name:Geraldo Mcfadden :..1940 Please schedule next follow up appt with Dr. Carias in 2-3 months due to recurrent syncope r/o VBI Diabetic polyneuropathy Hypertension Mild cognitive impairment Dyslipidemia Hx low back pain due to multilevel degenerative spine disease, acitve You have the following tests/procedures ordered: Orders Placed This Encounter Procedures MRI Brain wo Contrast VAS Carotid Duplex Bilateral ECHO Complete EEG Trigger point injection to lower back NCS/EMG of the lower extremities to determine severity of diabetic polyneuropathy Treatment Option- massage, Acupuncture, Over the counter heat patches (icy hot, thermacare, salonpas) , over the counter creams (aspercream, bengay cream, emu oi l), Relaxation therapy, Water therapy, Cortisone shots, Toradol Injections Suggest reading newspapers. magazines, perform word find exercises such as cross word puzz le, and scrabble, other puzzle games like Pin or Peg, LOVEFiLM. Play computer/mobile applications such as [employer] and [employer] Plan Discontinue ASA switch to Plavix 75 mg daily for stroke prophylaxis Continue Lyrica for neuropathic pain Any Questions please call JAMAAL Marroquin or Dr. Carias at [facility] Neurology Clinic General Neck and Back [...] are taking other medicines. You may use fgwt-eit-umacrui medicine to control pain, unless another pain [...] by your healthcare provider Date Last Reviewed: 10/06/201519994929-2289 [employer] [place] [address]. All righ ts reserved. This information is [...] future back strains, t ry these tips. Important Note: Do not give aspirin to children or teens without first discussing it with y our healthcare provider. ?Ice Ice reduces muscle pain and swelling. It helps most during the first 24 to 48 hours after a n injury. Wrap an ice pack or a bag of frozen peas in a thin towel. (Never place ice directly on y our skin.) Place the ice where your back hurts the most. Don t ice for more than 20 minutes at a time. You can use ice several times a day. ?Medicines Adzi-auo-gbyfjwt pain relievers can includeacetaminophen and anti-inflammatory medicines, which includes aspirin or ibuprofen. They can help ease discomfort. Some also reduce swelli ng. Tell your healthcare provider about any medicines you are already taking. Take medicines only as directed. ?Heat After the first 48 hours, heat can [...] a heating p ad. Date Last Reviewed: 12/06/201419992678-9399 [employer]. [address] [place] [address]. All righ ts reserved. This information is [...] changes. You will work closely with your [facility] provider to find a treatment plan that [...] can help reduce chronic pain. They include: Eating healthy Developing an exercise routine Getting enough sleep Stopping smoking and limiting alcohol use Losing excess weight Follow-up care Follow up with yourhealthcare provider, or as advised. Let yourhealthcare providerkno w if your current treatment plan is working or if changes are needed. Resources For more information, contact: [place] Head[employer] and Migraine Associationjames.[email or web address] Medical.GlobalLab or [phone] [place] Chronic Pain Association, theacpa.org or [phone] Date Last Reviewed: 11/05/201619995405-[address] [employer] [place] [address]. All [facility] ts reserved. This information is not [...] medicines for your pain. You may use rdmu-jlr-ifymrec or prescription medici claudio. You may need [...] medical care to help relieve pain. Look fo r a licensed practitioner with experience treating chronic pain. Talk with your healthcare julian stevenson about using complementary therapies such as: Massage [...] your needs. This may include: Stretching and pqsji-uv-wbejzz exercises Low-impact exercise such as walking, biking, [...] more support and information, contact these groups: [place] [employer], www.aapainmanage.org [place] Academy [employer] Pain Medicine, www.painmed.org [place] Chronic [employer] Association, www.theacpa.org National Pain Foundation, www.thenationalpainfoundation.org Date Last Reviewed: 03/07/201719991954-3102 [employer] [place] [address], [place] [address]. All righ ts reserved. This information is not intended as a substitute for professional medical care. Always follow your healthcare professional's instructions. Diabetes and Heart Disease Take your medicines as directed each day, even if you feel fine. If you have diabetes, you aretwo to four times more likely to have heart disease than giacomo eone without diabetes. This higher risk is due to diabetes, but it is also due to other risk factors for heart disease that happen in people with diabetes. But there s good news. You can helpcontrol your health risks by making some changes in your life. You can take steps to reduce your risk of heart disease by half similar to the risk in people who don't have diabetes. Your main risk factors Three major risk factors for heart disease are high blood sugar, high blood pressure, and h igh levels of lipids. By keeping risk factors under control, you can help keep your heart an d arteries healthy. This may reduce your chances of a heart attack. Blood sugar.High blood sugar can make artery cuellar tough and rough. Plaque (waxy mater ial in the blood) can then build up along the artery cuellar, making it harder for blood to fl ow through the arteries. Having high blood sugar increases the chances of having high blood pressure and high cholesterol. Blood pressure. When blood pressure is high all the time it causes your heart to work york rder to pump blood. Artery cuellar become damaged. This increases the risk for plaque build up . Lipids.The body needs some lipids in the blood to stay healthy. But lipid levels that are too high can damage the artery cuellar. Lipids include cholesterol and triglycerides. Ther e are two kinds of cholesterol. LDL ( bad ) cholesterol can damage the arteries. But HDL ( good ) cholesterol helps clear LDL cholesterol from the blood vessels. This helps fidelina p the arteries healthy. When blood sugar is high, the level of triglycerides in the blood ma y also be high. High blood triglyceride levelscan cause plaque to form. Other risk factors Certain lifestyle factors can increase levels of your blood sugar, blood pressure, and lipi ds. Such increases raise your risk of heart disease: Smokingdamages the lining of your arteries. This allows plaque to build up in the beatris ry cuellar. Smoking also constricts (narrows) the arteries. This can raise blood pressure and cause chest pain or angina. Smoking also increases your risk of getting type 2 diabetes. Not being activemakes it harder for your heart to do its work. Inactivity is linked to many other risk factors, such as high blood pressure and poor cholesterol levels. Inactivit y also increases your risk of getting type 2 diabetes. Being overweightmakes it harder for your body to use insulin. It also makes your heart work too hard. Being overweight is also the main contributor to the development of type 2 d iabetes, Changes you can make Following a few simple steps can help keep your risk factors under control. Work with your healthcare team to reach your goals. Quitting smokingcould save your life. Smoking damages the lining of the blood vessels and raises blood pressure. Smoking also affects how your body uses insulin. This makes it york rder to keep blood sugar under control. If you smoke and need help quitting, talk to your [facility] team. Testing your blood sugar is the only way to know whether it is under control. Be sure to test your blood sugar yourself. Also get your blood tested in the lab, as directed. Monitoring your blood pressure and lipid levels can help you achieve safe levels. Visit your healthcare team as scheduled. Taking medicines as directed can help control blood sugar, blood pressure, blood clottin g, and/or cholesterol levels. Eating rightcan reduce your risk factors and help you lose weight. Try to limit the am ount of processed or refined carbohydrates you eat at one time. Cut back on your total calor ie intake. Eat foods low in saturated fat and cholesterol. Eat fiber, including vegetables a nd whole grains, and cut down on salt. A dietitian or licensed clinician can help form a meal plan that works for you even if you are on a low budget. Being activecan help reduce your weight, strengthen your heart, and lower your lipid l evels and blood pressure. Exercise and activity are good for your whole body. Talk to your ealthcare team about increasing your activity safely over time. Keeping your appointmentswith your healthcare provider helps you stay healthy. Go in f or checkups and lab tests as scheduled. Date Last Reviewed: 08/24/201519995063-7[address] [employer] [place] [address], [place] [address]. All righ ts reserved. This information is not intended as a substitute for professional medical care. Always follow your healthcare professional's instructions. documented in this encounter Progress Notes Jalyn Carias MD - 05/19/2018 2:45 PM PST Patient: Geraldo Mcfadden Medical Record: [id number] Date of Services: 05/19/2018 Referring Doctor: Horacio Silvestre DO Chief Complaint: Recurrent syncope History of Present Illness: Mr. 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 He was given othe r treatment options such as acupuncture treatments, massage therapy, relaxation therapy, ove e-jgo-qmsjrnc creams and patches, and cortisone shots. Patient prefers to have cortisone sh ots to his back for a few months last year. Today's approximately 2 06/14. Patient has been experiencing recurrent syncope at least 2-3 times for the past month. Las t episode occurred on Friday when he suddenly slumped over for at least an hour or so accord ing to the , Hilaria. He was apparently unarousable though he woke up unaware of the even t. 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 However due to these syncopal episodes, patient will requi re further workup consisting of an MRI the brain, carotid Dopplers, echocardiogram, EEG and advised to follow-up with PCP Dr. Bhatti for possible cardiac event monitoring. In lexy tion, he'll be switched from aspirin to Plavix 75 mg by mouth daily for stroke prophylaxis. His other past mental history of hypertension, diabetic polyneuropathy, presently receiving Lyrica for his neuropathic pain. He has been experiencing short-term memory dysfunction a ccording to the and he was advised to keep reading newspapers, magazines, perform her f ind exercises. His MMSE today was 29/30. Review of Systems: Denies headache, earache, nasal catarrh, diplopia, blurring of vision, d ysphagia, odynophagia, sore throat, neck masses, hearing loss, chest pain, palpitations, leia rtness of breath, cough, hemoptysis, abdominal pain, diarrhea, constipation, bowel or bladde r dysfunction, hematuria, dysuria, lymphadenopathies, echhymoses, rashes, and homicidal or s uicidal ideations. Present Medication: Current Outpatient Prescriptions Medication Sig Dispense Refill albuterol 90 mcg/puff inhaler Inhale 2 puffs into the lungs every 4 hours as needed for Wheezing. Or coughing 1 Inhaler 1 atorvaSTATin (LIPITOR) 10 mg tablet Take 10 mg by mouth every morning. clopidogrel (PLAVIX) 75 mg tablet Take 1 tablet by mouth Daily for 90 days. 90 tablet 3 colchicine 0.6 mg tablet Take 1 tablet by mouth every morning. 30 tablet 0 cyanocobalamin (VITAMIN B-12) 1000 MCG tablet Take 1 tablet by mouth every morning. 90 tablet 3 DULoxetine (CYMBALTA) [address] capsule Take 60 mg by mouth every morning. fluticasone (FLONASE) 50 mcg/nasal spray 2 sprays by Nasal route nightly as needed for Allergies. 16 g 1 hydroCHLOROthiazide 25 mg tablet Take 1 tablet by mouth every morning. 30 tablet insulin aspart (NOVOLOG) 100 units/mL injection Inject 10 Units under the skin every mo rning (before breakfast). Checks BG 30 minutes after eating + Additional 15 units for BG >250 insulin glargine (LANTUS) 100 units/mL injection (vial) Inject 35 Units under the skin nightly. 3 vial 5 levothyroxine (SYNTHROID) 100 mcg tablet Take 2 tablets by mouth every morning (before breakfast). 90 tablet 0 levothyroxine (SYNTHROID) 200 mcg tablet Take 1 tablet by mouth every morning (before b reakfast). 10 tablet 1 losartan (COZAAR) 50 mg tablet Take 50 mg by mouth every morning. naproxen (NAPROSYN) 500 mg tablet Take 1 tablet by mouth 2 times daily (with breakfast & dinner). 180 tablet 3 omeprazole (PRILOSEC) 20 mg capsule Take 1 capsule by mouth every morning (before break fast). 90 capsule 1 ondansetron (ZOFRAN ODT) 4 mg disintegrating tablet Take 1 tablet by mouth every 8 hour s as needed for Nausea. 24 tablet 0 oxyCODONE 10 MG TABS Take [...] No current facility-administered medications for this visit. Patient's Allergies: Allergies Allergen Reactions Zolpidem Anaphylaxis Neurological Examination: Vitals: 05/19/18 1446 BP: 128/70 Pulse: 81 Resp: 20 PainSc: 0 - No pain MENTAL STATUS: The patient is awake, alert, and oriented to time, place, and person. [facility] is fluent. Memory, attention, comprehension, and general fund of knowledge are intact.MM SE 29/30, able to draw the clock until that time 1110, seen with his , Hilaria CRANIAL NERVES: Funduscopy revealed distinct disc margins. [...] at ankles bilaterally DEEP TENDON REFLEXES: absent reflexes throughout PLANTAR RESPONSES: Downgoing bilaterally GAIT: wide-based stance, unable to tandem gait, Romberg was negative CEREBELLAR EXAMINATION: There is no dysmetria on djrbpz-dw-awdo test. MISCELLANEOUS EXAM: Atraumatic, no evidence of [...] nontender, extremities equally palpable pulses Clinical Impression: Recurrent syncope r/o VBI versus cardiac arrythmia Diabetic polyneuropathy, as evidenced by impaired sensory modalities and reflexes Hypertension Mild cognitive impairment Dyslipidemia Hx low back pain due to multilevel degenerative spine disease, acitve Plan: Patient Instructions [facility] Neurology Clinic Dr. Jalyn Carias, Neurologist Date:05/19/2018 Name:Geraldo Mcfadden :..1940 Please schedule next follow up appt with Dr. Carias in 2-3 months due to Recurrent syncope r/o VBI Diabetic polyneuropathy Hypertension Mild cognitive impairment Dyslipidemia Hx low back pain due to multilevel degenerative spine disease, acitve You have the following tests/procedures ordered: Orders Placed This Encounter Procedures MRI Brain wo Contrast VAS Carotid Duplex Bilateral ECHO Complete EEG Trigger point injection to lower back NCS/EMG of the lower extremities to determine severity of diabetic polyneuropathy Treatment Option- massage, Acupuncture, Over the counter heat patches (icy hot, thermacare, salonpas) , over the counter creams (aspercream, bengay cream, emu oi l), Relaxation therapy, Water therapy, Cortisone shots, Toradol Injections Suggest reading newspapers. magazines, perform word find exercises such as cross word puzz le, and scrMobileX Labsble, other puzzle games like Pin or Peg, LOVEFiLM. Play computer/mobile applications such as [employer] and [employer] Discontinue ASA switch to Plavix 75 mg daily for stroke prophylaxis Continue Lyrica for neuropathic pain Any Questions please call JAMAAL Marroquin or Dr. Carias at [facility] Neurology Clinic General Neck and Back [...] are taking other medicines. You may use qagg-efi-dnkcvgm medicine to control pain, unless another pain [...] by your healthcare provider Date Last Reviewed: 10/06/201519990222-0468 [employer]. [address] [place] [address], [place] [address]. All righ ts reserved. This information is [...] future back strains, t ry these tips. Important Note: Do not give aspirin to children or teens without first discussing it with y our healthcare provider. ?Ice Ice reduces muscle pain and swelling. It helps most during the first 24 to 48 hours after a n injury. Wrap an ice pack or a bag of frozen peas in a thin towel. (Never place ice directly on y our skin.) Place the ice where your back hurts the most. Don t ice for more than 20 minutes at a time. You can use ice several times a day. ?Medicines Cboe-twm-kdcnzlx pain relievers can includeacetaminophen and anti-inflammatory medicines, which includes aspirin or ibuprofen. They can help ease discomfort. Some also reduce swelli ng. Tell your healthcare provider about any medicines you are already taking. Take medicines only as directed. ?Heat After the first 48 hours, heat can [...] a heating p ad. Date Last Reviewed: 12/06/201419992901-07[address] [employer] [place] [address], [place] [address]. All [facility] ts reserved. This information is not intended [...] changes. You will work closely with your [facility] provider to find a treatment plan that [...] can help reduce chronic pain. They include: Eating healthy Developing an exercise routine Getting enough sleep Stopping smoking and limiting alcohol use Losing excess weight Follow-up care Follow up with yourhealthcare provider, or as advised. Let yourhealthcare providerkno w if your current treatment plan is working or if changes are needed. Resources For more information, contact: [place] Head[employer] Migraine Association, [email or web address] or [phone] [place] Chronic Pain Association, theacpa.org or [phone] Date Last Reviewed: 11/05/201619992552-9099 [employer]. [address] [place] [address], [place] [address]. All righ ts reserved. This information is [...] medicines for your pain. You may use bkdv-acc-fxivoro or prescription medici claudio. You may need [...] care to help relieve pain. Look lisa shepard a licensed practitioner with experience treating chronic [...] your needs. This may include: Stretching and qdhnz-zx-ehztcg exercises Low-impact exercise such as walking, biking, [...] more support and information, contact these groups: [place] Academy [employer] Pain Management, www.aapainmanage.org [place] Academy [employer] Pain Medicine, www.painmed.org [place] Chronic Pain Association, www.theacpa.org National Pain Foundation, www.thenationalpainfoundation.org Date Last Reviewed: 03/07/201719994993-3672 [employer]. [address] [place] [address], [place] [address]. All righ ts reserved. This information is not intended as a substitute for professional medical care. Always follow your healthcare professional's instructions. Diabetes and Heart Disease Take your medicines as directed each day, even if you feel fine. If you have diabetes, you aretwo to four times more likely to have heart disease than giacomo eone without diabetes. This higher risk is due to diabetes, but it is also due to other risk factors for heart disease that happen in people with diabetes. But there s good news. You can helpcontrol your health risks by making some changes in your life. You can take steps to reduce your risk of heart disease by half similar to the risk in people who don't have diabetes. Your main risk factors Three major risk factors for heart disease are high blood sugar, high blood pressure, and h igh levels of lipids. By keeping risk factors under control, you can help keep your heart an d arteries healthy. This may reduce your chances of a heart attack. Blood sugar.High blood sugar can make artery cuellar tough and rough. Plaque (waxy mater ial in the blood) can then build up along the artery cuellar, making it harder for blood to fl ow through the arteries. Having high blood sugar increases the chances of having high blood pressure and high cholesterol. Blood pressure. When blood pressure is high all the time it causes your heart to work york rder to pump blood. Artery cuellar become damaged. This increases the risk for plaque build up . Lipids.The body needs some lipids in the blood to stay healthy. But lipid levels that are too high can damage the artery cuellar. Lipids include cholesterol and triglycerides. Ther e are two kinds of cholesterol. LDL ( bad ) cholesterol can damage the arteries. But HDL ( good ) cholesterol helps clear LDL cholesterol from the blood vessels. This helps fidelina p the arteries healthy. When blood sugar is high, the level of triglycerides in the blood ma y also be high. High blood triglyceride levelscan cause plaque to form. Other risk factors Certain lifestyle factors can increase levels of your blood sugar, blood pressure, and lipi ds. Such increases raise your risk of heart disease: Smokingdamages the lining of your arteries. This allows plaque to build up in the beatris ry cuellar. Smoking also constricts (narrows) the arteries. This can raise blood pressure and cause chest pain or angina. Smoking also increases your risk of getting type 2 diabetes. Not being activemakes it harder for your heart to do its work. Inactivity is linked to many other risk factors, such as high blood pressure and poor cholesterol levels. Inactivit y also increases your risk of getting type 2 diabetes. Being overweightmakes it harder for your body to use insulin. It also makes your heart work too hard. Being overweight is also the main contributor to the development of type 2 d iabetes, Changes you can make Following a few simple steps can help keep your risk factors under control. Work with your healthcare team to reach your goals. Quitting smokingcould save your life. Smoking damages the lining of the blood vessels and raises blood pressure. Smoking also affects how your body uses insulin. This makes it york rder to keep blood sugar under control. If you smoke and need help quitting, talk to your [facility]. Testing your blood sugar is the only way to know whether it is under control. Be sure to test your blood sugar yourself. Also get your blood tested in the lab, as directed. Monitoring your blood pressure and lipid levels can help you achieve safe levels. Visit your healthcare team as scheduled. Taking medicines as directed can help control blood sugar, blood pressure, blood clottin g, and/or cholesterol levels. Eating rightcan reduce your risk factors and help you lose weight. Try to limit the am ount of processed or refined carbohydrates you eat at one time. Cut back on your total calor ie intake. Eat foods low in saturated fat and cholesterol. Eat fiber, including vegetables a nd whole grains, and cut down on salt. A dietitian or licensed clinician can help form a meal plan that works for you even if you are on a low budget. Being activecan help reduce your weight, strengthen your heart, and lower your lipid l evels and blood pressure. Exercise and activity are good for your whole body. Talk to your [facility] team about increasing your activity safely over time. Keeping your appointmentswith your healthcare provider helps you stay healthy. Go in f or checkups and lab tests as scheduled. Date Last Reviewed: 08/24/201519996432-0120 [employer]. [address] [place] [address], [place] [address]. All righ ts reserved. This information is not intended as a substitute for professional medical care. Always follow your healthcare professional's instructions. Jalyn Carias MD05/19/201815:18 Electronically signed NOTE: Part of this report was transcribed using voice recognition software. Every effort was made to ensure accuracy. However, inadvertent computerize financial business analyst errors may be present documented in this [...] [place] | | | | | | [address] | | | | | | [phone] | | | | | | | | +--------+---------+ + + + | 02/26/ | Office | Urology | Lillie Fowler | | | 2018 | Visit | | LILLIE Lopez [address] | | | | | | [address] | | | | | | [place] | | | | | | [address] | | | | | | [phone] | | | | | | | | +--------+---------+ + + + | 03/16/ | Office | Neurology | Theresa, | | | 2018 | Visit | | SHONDA Mckinney [address] | | | | [address] [place], | | | | | | [place] [address] | | | | | | [phone] | | | | | | | | +--------+---------+ + + + | 04/12/ | Office | Primary Care | Massimo Ramos | | | 2019 | Visit | | MD Fer [address] | | | | | | [address] [place], [place] | | | | | | [address] | | | | | | | | +--------+---------+ + + + | 10/03/ | Office | Neurology | Jalyn Carias MD | | | 2019 | Visit | | [address] | | | | | | [place] | | | | | | [address] | | | | | | | [...] | | | care | | | Renewable Energy Broker-C | | | | | | | [...] | | | care | | | Renewable Energy Broker-C | | | | | | | [...] | | | care | | | Renewable Energy Broker-C | | | | | | | [...] | | | care | | | Renewable Energy Broker-C | | | | | | | linical | + +--------+ +---+-----+ + + + | Note: Pt will | | check CBG's daily x1 | | Pt will take Lantis as | | prescribed | + + documented as of this encounter Results EEG (09/01/2018 3:43 PM PDT) + + + | Narrative | Performed At | + + + | Saira Orellana MD 09/01/2018 15:44 Name:Geraldo Durbin | | | Lesa :1940 DATE OF SERVICE: 08/24/2018 | | | STUDY: ELECTROENCEPHALOGRAM INTRODUCTION: This is a | | | digital EEG recording with a record length of 20 minutes. The | | | patient is a 78 y.o. year-old male with syncope. BACKGROUND | | | RHYTHM: The patient has a well defined background pattern of 8-9 | | | Hz. This activity is more prominent posteriorly, symmetrical, and | | | synchronous. It attenuates with eye opening and returns with eye | | | closing. Drowsiness is appreciated by the attenuation and slowing | | | of the patient's background activities. The patient was also noted | | | to go into stage N2 of sleep, as evidenced by the appearance of | | | sleep spindles. ABNORMAL POTENTIALS: No focal slow waves or | | | epileptiform discharges are seen. HYPERVENTILATION/PHOTIC | | | STIMULATION: Hyperventilation was not performed. Photic | | | stimulation was without significant effect. IMPRESSION: Normal | | | awake and sleep EEG. Thank you for the opportunity to participate | | | in the care of this patient. Saira Orellana, | | | 09/01/201815:43 Electronically signed | | + + + ECHO Complete (09/01/2018 3:13 PM PDT) + + | Specimen | + + | | + + + + + | Narrative | Performed At | + + + | | | + + + + +---------+ + + | Performing | Address | City/State/Zipcode | Phone Number | | Organization | | | | + +---------+ + + | [facility] | | | | + +---------+ + + Trigger Point Injection Procedure (07/31/2018 3:45 PM PDT) + + + | Narrative | Performed At | + + + | Jalyn Carias MD 07/31/2018 16:36 Geraldo Mcfadden is a 78 | | | y.o. male right handed seen for neurologic evaluation with | | | history of chronic , persistent low back pain with acute | | | exacerbation with prominent spasms and pain. he received a trigger | | | point injection today in the bilateral paraspinal L5/S1AND | | | bilateral paraspinal L3-4 muscleS. He initially received | | | Lidocaine 1 % and once tolerated, given a combination of Marcaine 5 | | | % and Depomedrol. A total of depomedrol 10 ml, 40 mg/ml were | | | injected. he did not experience palpitations, diaphoresis, chest | | | pain, or near syncopal symptoms. It is medically necessary he | | | receives another trigger point injection in 4-5 [...] | | 2-3 times a day. He receive Toradol 60 mg IM for intractable low | | | back pain, pain scale 6 | | | | | | 7/10 I advised the patient to call for any side effects or | | | questions. Thank you for allowing us in participating in the care | | | of your patient. Sincerely, JALYN CARIAS M.D. | | | Neurologist [phone] Electronically signed NOTE: Part of | | | this report was transcribed using voice recognition | | | software. Every effort was made to ensure | | | accuracy. 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 No acute intracranial abnormality 2. Remote right | [facility] | | cerebellar lacunar infarct. 3. Mild white matter disease, likely | | | related to chronic small vessel ischemia. 4. Global volume loss. | | | Dictated by: Massimo Alba | | + + + + + + | Narrative | Performed At | + + + | EXAMINATION: MRI BRAIN WO CONTRAST HISTORY: recurrent syncope | [facility] | | r/o VBI,Hx CVA COMPARISON STUDY: May 13, 2018, March 16 | | | 2018 TECHNIQUE: Multiplanar multi sequence MRI of the brain is | | | performed without contrast. FINDINGS: Diffusion-weighted | | | images show no evidence of restricted diffusion. The reinoso-white | | | matter interface is intact. No acute intracranial hemorrhage, mass | | | lesion, or midline shift. Basilar cisterns are patent. Ventricles | | | are symmetric. Sulci are prominent and out of proportion to the | | | ventricles. Mild cerebellar volume loss. Major flow voids are | | | present. Remote right cerebellar lacunar infarct. Mild confluent | | | periventricular white matter T2 hyperintensity. There are 3 left | | | deep frontal white matter hyperintensities Minimal right cerebellar | | | ectopia. Paranasal sinuses and mastoid air cells are clear. The | | | pituitary gland is unremarkable. Corpus callosum is unremarkable. | | | Brainstem is unremarkable. | | + + + + + | Procedure Note | + + | Osito, Rad Results In - 05/21/2018 3:02 PM PST EXAMINATION:MRI BRAIN WO | | CONTRASTHISTORY:recurrent syncope r/o VBI,Hx CVACOMPARISON STUDY:May 13, 2018, | | March 16, 2018TECHNIQUE:Multiplanar multi sequence MRI of the brain is performed | | without contrast.FINDINGS:Diffusion-weighted images show no evidence of restricted | | diffusion.The reionso-white matter interface is intact.No acute intracranial hemorrhage, | | mass lesion, or midline shift.Basilar cisterns are patent.Ventricles are symmetric.Sulci | | are prominent and out of proportion to the ventricles.Mild cerebellar volume loss.Major | | flow voids are present.Remote right cerebellar lacunar infarct.Mild confluent | | periventricular white matter T2 hyperintensity. There are 3 left deep frontal white | | matter hyperintensitiesMinimal right cerebellar ectopia.Paranasal sinuses and mastoid | | air cells are clear.The pituitary gland is unremarkable.Corpus callosum is | | unremarkable.Brainstem is unremarkable.IMPRESSION: IMPRESSION:1. No acute intracranial | | abnormality2. Remote right cerebellar lacunar infarct.3. Mild white matter disease, | | likely related to chronic small vessel ischemia.4. Global volume loss.Dictated by: | | Massimo Hutchinsonam | |The reinoso-white matter interface is intact. | |No acute intracranial hemorrhage, mass lesion, or midline shift. | |Basilar cisterns are patent. | |Ventricles are symmetric. | |Sulci are prominent and out of proportion to the ventricles. | |Mild cerebellar volume loss. | |Major flow voids are present. | |Remote right cerebellar lacunar infarct. | |Mild confluent periventricular white matter T2 hyperintensity. There are 3 left deep front al white matter hyperintensities | |Minimal right cerebellar ectopia. | |Paranasal sinuses and mastoid air cells are clear. | |The pituitary gland is unremarkable. | |Corpus callosum is unremarkable. | |Brainstem is unremarkable. | | | |IMPRESSION: | |IMPRESSION: | |1. No acute intracranial abnormality | |2. Remote right cerebellar lacunar infarct. | |3. Mild white matter disease, likely related to chronic small vessel ischemia. | |4. Global volume loss. | | | |Dictated by: Massimo Alba [...] + + | Syncope, unspecified syncope type - Primary | + + | Type 2 diabetes mellitus with diabetic polyneuropathy, 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) | + + | Syncope and collapse | + + | Chronic low back pain without sciatica, unspecified back pain laterality | + + | Sprain of ligaments of lumbar spine, sequela | + + | Numbness Disturbance of skin sensation | + + documented in this encounter
--- OUTSIDE RECORDS SUMMARY | ~2019-02-17 | XMS | Encounter Summary ---
Demographics + + + | Address | [address] | | | [place] [address] | + + + | Home Phone [...] Team Providers + +------+ + | Care Retail Project Merchandiser Name | Role | Phone | + [...] | | | | | toenail | [phone] | [address] | | | | | Procedures | Phone: | Phone: | | | | | FOOT ISSUES | [phone] | [phone] | | | | | | Fax: | Fax: | | | | | | [phone] | [phone] | +--------+ + + + + + [...] pneumonia | | 2018 | Visit | [facility] | DNP [address] | (Primary Dx); | | | | [facility] | [place] [address] | Fissure in skin of | | | | [address] [place], | [phone] | foot; Fungal | | | | [place] [address] | | infection of | | | | [phone] | | toenail; Weakness of | | [...] Patient discouraged from using his own industrial pigment grinder to perform foot care as he [...] His states that he takes an industrial pigment grinder to his heels from time t [...] [place] | | | | | | [address] | | | | | | [phone] | | | | | | | | +--------+---------+ + + + | 02/26/ | Office | Urology | Lillie Fowler | | | 2018 | Visit | | LILLIE Lopez [address] | | | | | | [address] | | | | | | [place], [place] | | | | | | [address] | | | | | | [phone] | | | | | | | | +--------+---------+ + + + | 03/16/ | Office | Neurology | Theresa, | | | 2018 | Visit | | SHONDA Mckinney [address] | | | | | [address] [place], | | | | | | [place] [address] | | | | | | [phone] | | | | | | | | +--------+---------+ + + + | 04/12/ | Office | Primary Care | Massimo Ramos | | | 2019 | Visit | | MD Fer [address] | | | | | | [place] | | | | | | [id number] | | | | | | | | +--------+---------+ + + + | 10/03/ | Office | Neurology | Fabián Carias MD | | | 2019 | Visit | | [address] | | | | | | [place] | | | | | | [address] | | | | | | | [...] | | | care | | | Model And Mold Maker Plaster-C | | | | | | | [...] | | | care | | | Model And Mold Maker Plaster-C | | | | | | | [...] | | | care | | | Model And Mold Maker Plaster-C | | | | | | | [...] | | Charline [place], | | | | complex | | | Case | | | | care | | | Model And Mold Maker Plaster-C | | | | | | | [...]
--- OUTSIDE RECORDS SUMMARY | ~2019-02-17 | XMS | Encounter Summary ---
Demographics + + + | Address | [address] | | | [place] [address] | + + + | Home Phone [...] Team Providers + +------+ + | Care Engraver Wood Name | Role | Phone | + [...] | | | | | toenail | [address] | [address] | | | | | Procedures | Phone: | Phone: | | | | | FOOT ISSUES | [phone] | [phone] | | | | | | Fax: | Fax: | | | | | | [phone] | [phone] | +--------+ + + + + + Encounter Details +--------+---------+ + + + | Date | Type | Department | Care Team | Description | +--------+---------+ + + + | 03/23/ | Office | [facility] | Nessa Matuhr DPM | Fissure in skin of | | 2018 | Visit | [facility] | [address] | foot (Primary Dx); | | | | [address] | [place], [place] | Hyperkeratosis of | | | | [place], [place] | [address] | sole | | | | [address] | | | | | | [phone] | | | +--------+---------+ + + + [...] | : 1940 | Medical Record Number:[id number] | Author: Nessa Mathur DPM | Date [...] that they could purchase one at right [employer] or [employer] (deja mi). 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 Electronically signed by: Nessa Mathur DPM 02/19/2018 at 13:42 Note: Part of this report was transcribed using voice recognition software. Every effort wa s made to ensure accuracy. However, inadvertent computerized rollway man errors may be pre sent. CC: DO [...] [place] | | | | | | [address] | | | | | | [phone] | | | | | | | | +--------+---------+ + + + | 02/26/ | Office | Urology | Lillie Fowler | | | 2018 | Visit | | LILLIE Lopez [address] | | | | | | [address] | | | | | | [place], [place] | | | | | | [address] | | | | | | [phone] | | | | | | | | +--------+---------+ + + + | 03/16/ | Office | Neurology | Theresa, | | | 2018 | Visit | | SHONDA Mck[address]ney [address] | | | | | [address] [place], | | | | | | [place] [address] | | | | | | [phone] | | | | | | | | +--------+---------+ + + + | 04/12/ | Office | Primary Care | Massimo Ramoslulu | | | 2019 | Visit | | MD Fer [address] | | | | | | [place] | | | | | | [address] | | | | | | | | +--------+---------+ + + + | 10/03/ | Office | Neurology | Fabián Carias MD | | | 2019 | Visit | | [address] | | | | | | [place] | | | | | | [address] | | | | | | | [...] | | | care | | | Department Store General Manager-C | | | | | | [...] | | | care | | | Department Store General Manager-C | | | | | | [...] | | | care | | | Department Store General Manager-C | | | | | | [...] | | | care | | | Department Store General Manager-C | | | | | | [...]
--- OUTSIDE RECORDS SUMMARY | ~2019-02-17 | XMS | Encounter Summary ---
Demographics + + + | Address | [address] | | | [place] [address] | + + + | Home Phone [...] Team Providers + +------+ + | Care Motor Coach Driver Name | Role | Phone | + +------+ + | Ryan Gutiérrez MD | PCP | | + +------+ + Encounter Details +--------+ + + + + | Date | Type | Department | Care Team | Description | +--------+ + + + + | 02/19/ | [facility] | María Marie | | | 2016 | Encounter | [facility] | [place], [facility] [address] | | | | | [facility] [address] | [place], [place] | | | | | [address] [place], | [address] | | | | | [place] [address] | [phone] | | | | | [phone] | | | +--------+ + + + [...] [place] | | | | | | [address] | | | | | | [phone] | | | | | | | | +--------+---------+ + + + | 02/26/ | Office | Urology | Lillie Fowler | | | 2018 | Visit | | LILLIE Lopez [address] | | | | | | [address] | | | | | | [place] | | | | | | [address] | | | | | | [phone] | | | | | | | | +--------+---------+ + + + | 03/16/ | Office | Neurology | Theresa, | | | 2018 | Visit | | SHONDA M[address]ney [address] | | | | | | [address] [place], | | | | | | [place] [address] | | | | | | [phone] | | | | | | | | +--------+---------+ + + + | 04/12/ | Office | Primary Care | Massimo Ramos | | | 2019 | Visit | | MD Fer [address] | | | | | | [place] | | | | | | [address] | | | | | | | | +--------+---------+ + + + | 10/03/ | Office | Neurology | Fabián Carias MD | | | 2019 | Visit | | [address] | | | | | | [place] | | | | | | [address] | | | | | | | [...] | | | care | | | Clinical Administrative Coordinator-C | | | | | | [...] | | | care | | | Clinical Administrative Coordinator-C | | | | | | [...] | | | care | | | Clinical Administrative Coordinator-C | | | | | | [...] | | | care | | | Clinical Administrative Coordinator-C | | | | | | | linical | + +--------+ +---+-----+ + + + | Note: Pt will | | check CBG's daily x1 | | Pt will take Lantis as | | prescribed | + + documented as of this encounter Visit Diagnoses Not on filedocumented in this encounter"
--- OUTSIDE RECORDS SUMMARY | ~2019-02-17 | XMS | Encounter Summary ---
Demographics + + + | Address | [address] | | | [place] [address] | + + + | Home Phone | | + + + | Preferred Language | Unknown | + + + | Marital Status | | + + + | Spiritism Affiliation | 1025 | + + + | Race | Unknown | + + + | Ethnic Group | Unknown | + + + Author + + + | Author | [facility] | | | and [place] | + + + | Organization | [facility] | | [...] Providers + +------+ + | Care Street Department Dispatcher Name | Role | Phone | + [...] | | | | | | | Septic | | | | | | | Pneumonia | | | +--------+--------+ + + + + Encounter Details +--------+ + + + + | Date | Type | Department | Care Team | Description | +--------+ + + + + | 07/24/ | Hospital | [facility] | Mervat Yun MD | Septic shock ([facility]); | | 2019 - | Encounter | [facility] | [address] | Acute respiratory | | | | [address] [place] | MARCELO MARRERO | failure with hypoxia | | 07/27/ | | [place] [address] | [phone] | ([facility]); HCAP | | 2019 | | [phone] | | (healthcare-associat | | | | | María Adhikari MD | ed pneumonia); Acute | | | | | [address] | renal failure, | | | | | MARCELO MARRERO | unspecified acute | | | | | [id number] | renal failure type | | | | | | ([facility]); 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, with | | | | | | long-term current | | | | | | use of insulin ([facility]) | +--------+ + + + + Social [...] + + + | Blood Pressure | 140/100 | 07/27/2018 4:00 PM | | | | | PDT | | + + + + + | Pulse | 88 | 07/27/2018 4:00 PM | | | | | PDT | | + + + + + | Temperature | 36.6 C (97.9 F) | 07/27/2018 4:00 PM | | | | | PDT | | + + + + + | Respiratory Rate | 23 | 07/27/2018 4:00 PM | | | | | PDT | | + + + + + | Oxygen Saturation | 93% | 07/27/2018 4:00 PM | | | | | PDT | | + + + + + | Inhaled Oxygen | - | - | | | Concentration | | | | + + + + + | Weight | 89.1 kg (196 lb 6.9 | 07/27/2018 5:00 AM | | | | oz) | PDT | | + + + + + | Height | 170.2 cm (5' 7") | 07/24/2018 9:58 PM | | | | | PDT | | + + + + + | Body Mass Index | 30.77 | 07/24/2018 9:58 PM | | | | | PDT [...] documented as of this encounter Discharge Summaries Christ West MD - 07/27/2018 11:31 AM PDTFormatting of this note might be different f rom the original. DISCHARGE SUMMARY Patient Name: Geraldo Mcfadden : 1940 Date of Admission: 07/24/2018 Date of Discharge: 07/27/18 Admitting Physician: Mervat Yun MD Discharging Physician: Christ West MD Primary Care Provider: Horacio Silvestre DO Discharge Diagnoses: Active Problems: Panlobular emphysema ARF (acute renal failure) Septic shock Acute respiratory failure with hypoxia HCAP (healthcare-associated pneumonia) Resolved Problems: * No resolved hospital problems. 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, 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 Class 1 obesity with alveolar hypoventilation, serious comorbidity, and body mass index (BMI) of 33.0 to 33.9 in adult Benign prostatic hyperplasia without lower urinary tract symptoms Acquired diverticulosis of colon Chronic nonseasonal allergic rhinitis due to pollen watermaster current use of aspirin 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, left watermaster current use of opiate analgesic Current use of beta marly Panlobular emphysema Atherosclerosis of [place] coronary artery of [place] heart without angina pectoris On potassium wasting diuretic therapy Primary osteoarthritis involving multiple joints Vitamin D deficiency disease History of bacterial pneumonia Insomnia secondary to chronic pain Hx of transient ischemic attack (TIA) ARF (acute renal failure) Coordination of complex care VIKAS (acute kidney injury) Septic shock Acute respiratory failure with hypoxia HCAP (healthcare-associated pneumonia) Consultants: None Procedures: 07/24 CT Head: IMPRESSION: 1. No acute intracranial process. 2. Mild volume loss. 3. Mild white matter disease. 4. Remote right cerebellar lacunar infarct. 5. Mild sinus mucosal thickening. 07/24 CXR: FINDINGS: The lungs are hypoventilated. Patchy right upper and lower airspace opacities. Hazy opa city is also noted laterally at the left base. Query small left pleural effusion. No pne umothorax. Heart size is stable. No acute osseous process. Impression IMPRESSION: Multifocal pneumonia Ct Chest Wo Contrast Result Date: 07/26/2018 [...] high density subpleural nodular foci are present shagger iorly in the lower lobes, and involve [...] 4. VASCULAR CALCIFICATION. 5. SMALL HIATUS HER EMMA. Dictated and Signed by: Marbin Salvador MD Electronically signed: 07/26/2018 12:58 PM Labs in the last 24 hours: Recent Results (from the past 24 hour(s)) POC Glucose Result Value Ref Range Glucose, POC 136 (H) 70 - 109 mg/dL POC Glucose Result Value Ref Range Glucose, POC 135 (H) 70 - 109 mg/dL CBC with Differential Result Value Ref Range WBC 8.2 4.0 - 11.0 K/uL RBC 3.98 (L) 4.30 - 5.70 M/uL Hemoglobin 11.7 (L) 13.5 - 18.0 g/dL Hematocrit 35.4 (L) 40.0 - 51.0 % MCV 88.9 83.0 - 101.0 fL MCH 29.4 28.0 - 35.0 pg MCHC 33.1 32.0 - 36.0 g/dL RDW-CV 15.6 (H) <15.0 % RDW-SD 51.3 (H) 35.1 - 46.3 fL Platelet Count 150 140 - 440 K/uL MPV 10.8 6.5 - 12.4 fL % Neutrophils 49.9 45.0 - 82.0 % % Lymphocytes 19.0 (L) 20.0 - 45.0 % % Monocytes 17.1 (H) 4.0 - 12.0 % % Eosinophils 11.7 (H) 0.0 - 5.0 % % Basophils 1.8 (H) 0.0 - 1.0 % % Immature Granulocytes 0.5 (H) 0.0 - 0.4 % Absolute Neutrophils 4.08 1.80 - 8.50 K/uL Absolute Lymphocytes 1.56 0.60 - 3.20 K/uL Absolute Monocytes 1.40 (H) 0.00 - 1.00 K/uL Absolute Eosinophils 0.96 (H) 0.00 - 0.40 K/uL Absolute Basophils 0.15 (H) 0.00 - 0.10 K/uL Absolute Immature Granulocytes 0.04 (H) 0.00 - 0.03 K/uL % nRBC 0 0 - 2 per 100 WBCs Absolute nRBC 0.00 0.00 - 0.01 K/uL Basic Metabolic Panel Result Value Ref Range Na 138 136 - 145 mmol/L K 4.0 3.4 - 5.1 mmol/L Cl 103 98 - 107 mmol/L CO2 28 20 - 31 mmol/L Anion Gap 7 3 - 16 mmol/L Glucose 147 (H) 60 - 106 mg/dL BUN 20 9 - 23 mg/dL Creatinine 1.02 0.70 - 1.30 mg/dL eGFR if not >60 >=60 mL/min/1.73m2 Ca 9.8 8.7 - 10.4 mg/dL BUN/Creatinine Ratio 19.6 Magnesium Result Value Ref Range Magnesium 1.5 (L) 1.6 - 2.6 mg/dL POC Glucose Result Value Ref Range Glucose, POC 137 (H) 70 - 109 mg/dL Reason for Admission: Please refer to the H&P for full details. In short, this is a 78 y.o. male with a history of chronic back pain on oxycodone/pregabalin, two admissions to [facility] in Jul for VIKAS/pneumonia, who presented with VIKAS/acute respiratory failure with hypoxia, encepha lopathy, transferred to [facility] 07/24. Problem-Oriented Hospital Course: Septic shock likely 2/2 mulifocal pneumonia/HCAP -Presented to [facility] with encephalopathy, hypoxia, VIKAS, found to have multifo madhu pneumonia on chest x-ray -He was treated with ceftriaxone and clindamycin, given 2 L of normal saline, central line and arterial line were placed,and he was transferred to [facility] - Switched to vanc/cefepime on arrival here -07/24, Levophed weaned off, lactate normal -His blood pressure stabilized quickly, and he titrated off his oxygen onto room air by dis charge - Has had repeated episodes of pneumonia this month - Did well with ST, no evidence of aspiration - CT scan chest showed pneumonia, mild reactive LN, no concerning masses or concerning lymp hadenopathy - WBC down from 24 to 8.2 by discharge - Afebrile - Suspect repeated aspiration events and encephalopathy related to high-dose opiates, stron gly advised to avoid as below Acute hypoxic respiratory failure: -Due to pneumonia,smoked heavily for 15 years, and has some emphysema on imaging -Oxygen off by discharge IDDM --BS in the 100's, rising - Increase glargine to 18 units,SSI Acute on chronic kidney disease: -3 episodes of acute kidney injury this month, suspect related to aspiration/hypoxia -Creatinine fell quickly from 3.2-1.1 with fluids, removed Tong catheterto make sure he can urinate well without cath - Should not be restarted on losartan/diuretics at this time given frequent episode of VIKAS, but if he is stable at home for some time, could consider restarting Hypothyroidism --continue levothyroxine.TSH and free T4 have been high recently, difficult to know w hat to make of this in setting of sepsis HTN --On losartan at home - BP rising today, start amlodipine rather than losartan or diuretics for now given his rep eated episode of hypovolemia/VIKAS Acute metabolic encephalopathy/chronic back pain --In review with his , he doesn't always take oxycodone, but when he does, he takes up to 5 30-mg tablets (150 mg) of oxycodone at a time -Suspect this is the primary problem causing his repeated episodes of encephalopathy, respi ratory failure from aspiration and acute kidney injury - Called primary care office to advise them of this problem -Advised him and his that he should not be taking oxycodone at these doses, and his wi fe disposed of this medicine - His back pain was controlled in the hospital without opiates - Continue duloxetine, trazodone, hold pregabalin for now Hx CVA --continue aspirin, plavix, lipitor. GERD --continue PPI. Code Status: Full Code Disposition: Home with Discharge Condition: Stable Lungs clear, breathing comfortably Heart RRR Abd soft, NT Ext WWP Follow-up Information Horacio Silvestre DO In 1 week. Specialty: Family Medicine Contact information: [address] [facility] [address] Discharge Medications New Medications Details amLODIPine 10 MG tablet Take 1 tablet by mouth Daily. aka: NORVASC Start: 07/28/2018 cefdinir 300 mg capsule Take 1 capsule by mouth 2 times daily for 4 days. aka: OMNICEF Changed Medications Details levothyroxine 75 MCG tablet Take 3 tablets by mouth every morning (before breakfast) for 30 days. What changed: Another medication with the same name was removed. Continue taking this medi cation, and follow the directions you see here. aka: SYNTHROID Unchanged Medications Details aspirin 325 mg tablet [...] capsule by mouth every morning. aka: CYMBALTA fluticasone 50 mcg/nasal spray 2 sprays by Nasal route nightly as needed for Allergies. aka: FLONASE insulin lispro 100 units/mL injection (vial) Inject 0-6 Units under the skin 4 times daily (with meals and nightly). aka: humaLOG loperamide 2 mg capsule Take 2 mg by mouth 4 times daily as needed for Diarrhea. aka: IMODIUM omeprazole 20 mg capsule Take 1 capsule by mouth every morning (before breakfast). aka: priLOSEC polyethylene glycol packet Take 1 diluted packet by mouth Daily as needed for Constipation. aka: MIRALAX tamsulosin 0.4 mg Caps Take 1 capsule by mouth nightly. aka: FLOMAX testosterone 2 mg/[address] 1 patch onto the skin nightly. aka: ANDRODERM traZODone 50 mg tablet Take 2 tablets by mouth nightly. aka: DESYREL urea 40 % Crea Apply to affected areas daily aka: CARMOL Discontinued Medications colchicine 0.6 mg tablet hydroCHLOROthiazide 25 mg tablet insulin glargine 100 units/mL injection (vial) aka: LANTUS losartan 50 mg tablet aka: COZAAR naproxen 500 mg tablet aka: NAPROSYN oxyCODONE 30 MG immediate release tablet aka: ROXICODONE pregabalin 300 MG capsule aka: LYRICA Studies With Pending Results: None Greater than 30 minutes were spent on discharge and coordination of post-hospital care. Electronically signed by: Christ West MD, 07/27/2018 11:31 [facility] documented in this encounter Discharge Instructions Instructions Christ West MD - 07/27/2018You were admitted with respiratory failure, acute kidney injury and confusion. Your problems quickly resolved with fluids and antibioti cs. The main concern at this point is your pain medicine - you should not take oxycodone. The dose is far too large, and can cause respiratory failure, acute kidney injury, confusion , and . Do not take this medicine. You should take amlodipine instead of losartan because of concerns about repeated episodes of kidney failure. Try to avoid taking Lyrica for now as well, which can also cause confusi on, and is cleared by the kidneys. Please follow up with your primary physician about pain management. Please continue the diabetes management you do at home, no changes needed at this time. documented in this encounter Medications at Time [...] Units | 3 vial | 5 | 07/28/19 | | | (LANTUS) 100 | under [...] documented as of this encounter Progress Notes Maria Eugenia Odom RN - 07/27/2018 4:44 PM PDTAVS given and reviewed with patient and son, a cknowledged understanding and all questions answered. Wheeled out in chair by TRIM SAWYER with all b elongings. Darnell Dobbins MD - 07/26/2018 11:38 AM PDTFormatting of this note might be different from the origi nal. [facility] Hospitalist Progress Note Geraldo Mcfadden is a 78 y.o. male ASSESSMENT and PLAN: Active Hospital Problems Diagnosis Septic shock Acute respiratory failure with hypoxia HCAP (healthcare-associated pneumonia) ARF (acute renal failure) Panlobular emphysema Resolved Hospital Problems No resolved problems to display. Septic shock likely 2/2 mulifocal pneumonia/HCAP -Presented to [facility] with mild encephalopathy, hypoxia, found to have multifo madhu pneumonia on chest x-ray -He was treated with ceftriaxone and clindamycin, given 2 L of normal saline, central line and arterial line were placed, and he was transferred to [facility] - Switched to vanc/cefepime on arrival here (increase dose of cefepeme given improved renal function) -07/24, Levophed weaned off, lactate normal -His blood pressure stabilized, and he is down to 1 L of oxygen at this time - Has had repeated episodes of pneumonia - Did well with ST, no evidence of aspiration - CT scan chest today (had enlarged LN on last CT in May, f/u recommended), remains un clear why he has repeated episodes of VIKAS/pneumonia (avoid contrast given repeated episodes of VIKAS) - WBC down from 24 to 12 - Afebrile overnight Acute hypoxic respiratory failure: -Due to pneumonia, smoked heavily for 15 years, and has some emphysema on imaging -will wean O2 as able, down from 6-3 L currently IDDM --BS in the 's, rising - Increase glargine to 18 units, SSI Acute on chronic kidney disease: -3 episodes of acute kidney injury this month (!) -Creatinine fell quickly from 3.2-1.1 with fluids, removed Tong catheter to make sure he c an urinate well without cath - Should not be restarted on losartan/diuretics at this time given frequent episode of VIKAS Hypothyroidism --continue levothyroxine. TSH and free T4 have been high recently, difficult to know what to make of this in setting of sepsis HTN --On losartan, which did not be restarted at this time - BP rising today, start amlodipine rather than losartan or diuretics Acute metabolic encephalopathy --Concerned that this may be a primary problem, related to large doses of duloxetine, prega balin, and trazodone at night - Encourage smaller doses of medicine for insomnia/diabetic neuropathy Hx CVA --continue aspirin, plavix, lipitor. GERD --continue PPI. Disposition : Likely home when off oxygen, medically stable Prophylaxis : heparin SUBJECTIVE: He denies confusion. Denies any chest pain. Still mildly short of breath especially with activity. Still some cough. No problems eating. No nausea or vomiting VITALS: Temp: 37 C (98.6 F), Pulse: 89, Resp: 20, BP: 160/90, SpO2 95 % on nasal cannula Temp Min: 36.3 C (97.3 F) Max: 37.2 C (99 F) Weight: 95.9 kg (211 lb 6.7 oz) Intake/Output Summary (Last 24 hours) at 07/26/2018 1138 Last data filed at 07/26/2018 0900 Gross per 24 hour Intake 1050 ml Output 1975 ml Net -925 ml PHYSICAL EXAM: General: Alert, sitting up Cardiovascular: Regular rate and rhythm Respiratory: Frequent dry cough, scattered rhonchi, otherwise somewhat diminished throughou t, no increased work of breathing Abdomen: Soft, obese, nontender Extremities: Warm and well perfused Neurological: Alert and appropriate Tong catheter present: No DIAGNOSTIC STUDIES: Available data and images were reviewed personally. Significant results and findings are a ddressed here or in the Assessment and Plan. Recent Results (from the past 24 hour(s)) POC Glucose Result Value Ref Range Glucose, POC 179 (H) 70 - 109 mg/dL POC Glucose Result Value Ref Range Glucose, POC 157 (H) 70 - 109 mg/dL POC Glucose Result Value Ref Range Glucose, POC 161 (H) 70 - 109 mg/dL CBC with Differential Result Value Ref Range WBC 12.2 (H) 4.0 - 11.0 K/uL RBC 4.36 4.30 - 5.70 M/uL Hemoglobin 13.0 (L) 13.5 - 18.0 g/dL Hematocrit 38.6 (L) 40.0 - 51.0 % MCV 88.5 83.0 - 101.0 fL MCH 29.8 28.0 - 35.0 pg MCHC 33.7 32.0 - 36.0 g/dL RDW-CV 15.7 (H) <15.0 % RDW-SD 51.1 (H) 35.1 - 46.3 fL Platelet Count 156 140 - 440 K/uL MPV 11.1 6.5 - 12.4 fL % Neutrophils 56.4 45.0 - 82.0 % % Lymphocytes 17.5 (L) 20.0 - 45.0 % % Monocytes 14.4 (H) 4.0 - 12.0 % % Eosinophils 9.6 (H) 0.0 - 5.0 % % Basophils 1.4 (H) 0.0 - 1.0 % % Immature Granulocytes 0.7 (H) 0.0 - 0.4 % Absolute Neutrophils 6.90 1.80 - 8.50 K/uL Absolute Lymphocytes 2.14 0.60 - 3.20 K/uL Absolute Monocytes 1.76 (H) 0.00 - 1.00 K/uL Absolute Eosinophils 1.17 (H) 0.00 - 0.40 K/uL Absolute Basophils 0.17 (H) 0.00 - 0.10 K/uL Absolute Immature Granulocytes 0.08 (H) 0.00 - 0.03 K/uL % nRBC 0 0 - 2 per 100 WBCs Absolute nRBC 0.00 0.00 - 0.01 K/uL Basic Metabolic Panel Result Value Ref Range Na 137 136 - 145 mmol/L K 4.2 3.4 - 5.1 mmol/L Cl 103 98 - 107 mmol/L CO2 27 20 - 31 mmol/L Anion Gap 7 3 - 16 mmol/L Glucose 159 (H) 60 - 106 mg/dL BUN 21 9 - 23 mg/dL Creatinine 1.08 0.70 - 1.30 mg/dL eGFR if not >60 >=60 mL/min/1.73m2 Ca 10.2 8.7 - 10.4 mg/dL BUN/Creatinine Ratio 19.4 POC Glucose Result Value Ref Range Glucose, POC 191 (H) 70 - 109 mg/dL Xr Chest Ap Portable Result Date: 07/24/2018 EXAMINATION: XR CHEST AP PORTABLE HISTORY: post central line insertion COMPARISON STUDY: Ap ril 2017 FINDINGS: The lungs are again noted to have patchy right-sided airspace opacity . New subclavian central venous catheter is present on the left with the catheter tip termi nating in the superior vena cava. No pleural effusion. No pneumothorax. Heart size is sta ble. No acute osseous process. IMPRESSION: Central venous catheter placement. Multifocal pneumonia. Dictated by: Massimo mcfarlane Current Facility-Administered Medications: acetaminophen 650 mg Oral Q4H PRN albuterol 2.5 mg Nebulization RT Q4H PRN amLODIPine 5 mg Oral Daily aspirin 325 mg Oral QAM atorvaSTATin 10 mg Oral QAM bisacodyl 10 mg Rectal Daily PRN calcium carbonate 1,000 mg Oral Q4H PRN cefepime 2 g Intravenous 2 times per day cholecalciferol 2,000 Units Oral QAM clopidogrel 75 mg Oral QAM cyanocobalamin 1,000 mcg Oral QAM dextrose 12.5-25 g Intravenous PRN And dextrose 10% Intravenous Continuous PRN docusate sodium 100 mg Oral BID PRN DULoxetine 60 mg Oral QAM heparin 5,000 Units Subcutaneous 2 times per day insulin glargine 10 Units Subcutaneous Nightly insulin lispro 0-6 Units Subcutaneous 4x Daily WC and HS levothyroxine 225 mcg Oral QAM AC melatonin 3 mg Oral Nightly PRN norepinephrine 1-30 mcg/min Intravenous Titrated ondansetron 4 mg Intravenous Q6H PRN pantoprazole 40 mg Oral QAM AC pneumococcal 0.5 mL Intramuscular Once PRN polyethylene glycol 17 g Oral Daily PRN senna 8.6 mg Oral BID PRN vancomycin 1 g Intravenous Q24H vancomycin per pharmacy Other Pharmacy Consult Total time of approximately 25 minutes was spent with the patient and/or patient's family, and/or on the patient's floor/unit, of which more than 50% was spent counseling and/or coord ination the patient's care as outlined above. Christ West 07/26/2018 11:38 [facility] Reinier Melgar Pha rmD - 07/26/2018 6:12 AM PDT VANCOMYCIN PER PHARMACY PROTOCOL: AMS/Drug Name - Vancomycin Patient: Geraldo Mcfadden [id number] Admit: 07/24/2018 21:47 RELEVANT ALLERGIES: no allergies listed for antibiotics 78 yrs old male patient admitted on 07/24/2018 for septic shock. Patient is receiving vanc omycin starting on 07/24/18 for Pneumonia. 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 . Ri sk factors for MDR organisms include recent healthcare contact and h/o MRSA. Antimicrobials - Current Antibiotic Dates of Therapy Vancomycin 07/24 Cefepime 07/25- Antimicrobials - Discontinued Antibiotic Dates of Therapy Zosyn X 1 dose 07/24 Historical Vancomycin dosing (previous & current encounter): none Micro/Cultures/Diagnostics: Microbiology Results (Last 14 Days by Collected Date with Culture/Sensitivity) Procedure Component Value Units Date/Time Respiratory pathogen panel, NAAT [[id number]] Collected: 07/25/18 0011 Order Status: Resulted Lab Status: In process Updated: 07/25/18 0029 Specimen: Tissue from Nasopharynx Culture, Blood [[id number]] Collected: 07/24/18 2310 Order Status: Completed Lab Status: Preliminary result Updated: 07/25/18 1231 Specimen: Peripheral Blood Culture No growth: Monitored continually by instrument for 5 days Culture, MRSA [[id number]] (Normal) Collected: 07/24/18 2230 Order Status: Completed Lab Status: Final result Updated: 07/26/18 0750 Specimen: Tissue from Nares Culture Negative for MRSA by chromogenic agar method Culture, Blood [[id number]] Collected: 07/24/18 2220 Order Status: Completed Lab Status: Preliminary result Updated: 07/25/18 1051 Specimen: Peripheral Blood Culture No growth: Monitored continually by instrument for 5 days Culture, Respiratory, Lower, Smear [[id number]] Order Status: Sent Lab Status: No result Specimen: Body Fluid from Sputum, Expectorated Culture, Blood [[id number]] Collected: 07/24/18 1107 Order Status: Completed Lab Status: Preliminary result Updated: 07/25/18 1121 Specimen: Peripheral Blood Culture No growth: Monitored continually by instrument for 5 days Culture, Blood [[id number]] Collected: 07/24/18 1050 Order Status: Completed Lab Status: Preliminary result Updated: 07/25/18 112 Specimen: Peripheral Blood Culture No growth: Monitored continually by instrument for 5 days Culture, MRSA [[id number]] Collected: 07/15/18 0036 Order Status: Completed Lab Status: Final result Updated: 07/17/18 0749 Specimen: Tissue from Nares Culture 1+ Staphylococcus aureus,Methicillin resistant (MRSA) Culture, Blood [[id number]] Collected: 07/14/18 1230 Order Status: Completed Lab Status: Final result Updated: 07/19/18 1321 Specimen: Peripheral Blood Culture No growth after 5 days incubation. Culture, Blood [[id number]] Collected: 07/14/18 1218 Order Status: Completed Lab Status: Final result Updated: 07/19/18 1231 Specimen: Peripheral Blood Culture No growth after 5 days incubation. Relevant cultures from previous admits: Date Source Organisms Sensitivities 07/15/18 nares MRSA 1+ UA: Admission Wt: Weight: 95.9 kg (211 lb 6.7 oz) Current Wt: Weight: 92.1 kg (203 lb 0.7 oz) Min/Max Temp past 24 hours:Temp Av.8 C (98.2 F) Min: 36.3 C (97.3 F) Max: 3 7.2 C (99 F) Estimated Creatinine Clearance: 59 mL/min (based on SCr of 1.08 mg/dL). Intake/Output Summary (Last 24 hours) at 07/26/2018 1019 Last data filed at 07/26/2018 0900 Gross per 24 hour Intake 1100 ml Output 1975 ml Net -875 ml Temp: [36.3 C (97.3 F)-37.2 C (99 F)] 37 C (98.6 F) Pulse: [81-93] 89 Resp: [16-20] 20 BP: (132-164)/(74-92) 160/90 Recent Labs Lab 07/26/18 0615 07/25/18 0427 07/24/18 2220 07/24/18 1045 WBC 12.2* 11.3* -- 24.3* CREA 1.08 1.47* 2.00* 3.24* LACTATE -- -- 1.1 1.8 PROCALCITONI -- -- 0.16 -- Imagin/19: CXR (1123)- multifocal pneumonia 07/24:CT Head wo contrast - IMPRESSION: 1. No acute intracranial process. 2. Mild volume loss. 3. Mild white matter disease. 4. Remote right cerebellar lacunar infarct. 5. Mild sinus mucosal thickening. Date 07/24 07/25 07/26 Time of Vancomycin draw -- -- 1100 Vancomycin result -- -- LEVEL or TROUGH -- level Serum Creatinine 2 1.47 1.08 CrCl (mL/min) 33 43 59 Vanco load/bolus 1000 mg @ [facility] -- -- Vanco dose - current -- 1000 mg q24hr 1000 mg q24hr Vanco dose - new 1000 mg q24hr Assessment: Vancomycin Day # 3 Other antibiotics: Cefepime Target Trough: 15-20 mcg/ml for HAP WBC: 24.3__>12.2; Renal: Back at baseline; Temp: afebrile; Culture: pending; MRSA positi ve; VS: pressor stopped @ ~0030; vss Renal function: UOP: will assess after 24h UOP obtained Dosing weight: 78 kg (adj BW, as actual weight >30% over IBW) Plan: 1. Vancomycin initial dose 1000 mg (~13 mg/kg) IVPB x 1 given on 07/24/18 @ 1227 given @ [facility], followed by maintenance vancomycin 1000 mg IVPB q24h at [facility] starting 07/25 @ 120 0 2. Vancomycin level ordered for 07/26/18 @ 1100 (draw 60 minutes prior to hanging the 3rd do se) 3. Serum creatinine DAILY for first 3 [...] Dosing and Monitoring Protocol Electronically signed by: Reinier Infante PharmMercedes 07/26/2018 10:19 Celine Martinez, Ph armD - 07/25/2018 3:08 PM PDT PHARMACY SERVICES: ADMISSION MEDICATION REVIEW Geraldo Mcfadden is a 78 y.o. male admitted on 07/24/2018. Patient is a reliable historian. Location of Patient when reviewed: ED X Medical Floor Patient s prior to admit medication and over the counter (OTC) medications/herbal supplem ents list obtained from: X Verbal interview X Patient able to recall SOME Name, strength, and directions X Patient/family member provided a complete current medication list or bottles X Doctor's office: [facility] AVS from 07/17/18 X Pharmacy list names: [facility] X [facility] [employer] (Prescription Monitoring Program) X Other sources: Verbal interview assisted by . Vaccines up to date? Patient would like to get the pneumonia vaccine before discharge. Yes No Unsure Influenza x Pneumococcal x Tdap x Shingles x Noted medications discrepancies or medication-related issues: Medication added: Medication: Prior to Admission Sig: Patient taking differently as: Cholecalciferol 1000 unit tab 2 tabs by mouth every morning Levothyroxine 175 to 200 mcg by mouth daily Not current prescribed dose Patient has been inadvertently taking 175 to 200 mcg daily. Patient's bottle is mixed wit h the 2 different strengths. Neither strength is the current dose (225 mcg) patient should b e taking. Colchicine 0.6 mg tab 1 tab by mouth every morning for gout Still taking Med discontinued at 07/17/18 discharge Hydrochlorothiazide 25 mg tab 1 tab by mouth daily Still taking Med discontinued at 07/17/18 discharge Naproxen 500 mg tab 1 tab by mouth twice daily 1 tab by mouth daily as needed for arthritis pain Oxycodone 30 mg tab 1 tab by mouth every 8 hours as needed for pain Still taking Med disc ontinued at 07/17/18 discharge Taking 1 tab by mouth every morning as scheduled dose and 1 tab twice daily if needed for p ain Removed therapy: Medication: Prior to Admission Sig: Reason for Removal: Cholecalciferol 2000 unit tab 1 tab by mouth daily Form adjustment Ondansetron 4 mg ODT tab 1 tab by mouth every 8 hours as needed for nausea Therapy complet e Patient denies any use of Recreational Substances, Tobacco or Alcohol. 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 Insulin lispro 100 units/mL inj 0-6 units under the skin four times daily with meals and ni ghtly Patient states taking rarely. Average of once monthly. No fill history within the las t 4 months. Patient states still using the same vial from about 6 months ago. Levothyroxine 75 mcg tab 3 tabs by mouth every morning before breakfast Not taking. Patient taking old strengths which are less than prescribed dose (225 mcg) Losartan 50 mg tab 1 tab by mouth twice daily 1 tab by mouth daily Patient unaware dose increased at 07/17/18 discharge. 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 Provider aspirin 325 mg tablet Take 325 mg by mouth every morning. Taking Historical ProviderMD atorvaSTATin (LIPITOR) 10 mg tablet Take 1 tablet by mouth every morning. Taking 90 tablet Horacio Silvestre DO cholecalciferol (VITAMIN D-3) 1000 units TABS Take 2,000 Units by mouth every morning. Silviano ing Historical ProviderMD clopidogrel (PLAVIX) 75 mg tablet Take 75 mg by mouth every morning. Taking Historical Pr MD casey colchicine 0.6 mg tablet Take 0.6 mg by mouth Daily. For gout Taking Differently Historic al ProviderMD cyanocobalamin (VITAMIN B-12) 1000 MCG tablet Take 1 tablet by mouth every morning. Taking 90 tablet Horacio Silvestre DO DULoxetine (CYMBALTA) [address] capsule Take 1 capsule by mouth every morning. Taking 90 ca psule Horacio Silvestre, DO fluticasone (FLONASE) 50 mcg/nasal spray 2 sprays by Nasal route nightly as needed for All ergies. Taking 16 g Horacio Silvestre DO hydroCHLOROthiazide 25 mg tablet Take 25 mg by mouth Daily. Taking Differently Historical MD Brian insulin glargine (LANTUS) 100 units/mL injection (vial) Inject 18 Units under the skin nig htly. Taking Differently Parisa Torres MD insulin lispro (HUMALOG) 100 units/mL injection (vial) Inject 0-6 Units under the skin 4 t imes daily (with meals and nightly). Taking Differently Macario Coulter MD levothyroxine (SYNTHROID) 75 MCG tablet Take 3 tablets by mouth every morning (before haven kf) for 30 days. Patient not taking: Reported on 07/25/2018 Not Taking 90 tablet Kasey Salinas NP LEVOTHYROXINE SODIUM PO Take 175-200 mcg by mouth Daily. Taking Differently Historical Krista peña MD loperamide (IMODIUM) 2 mg capsule Take 2 mg by mouth 4 times daily as needed for Diarrhea. Taking Historical MD Brian losartan (COZAAR) 50 mg tablet Take 1 tablet by mouth 2 times daily. Patient taking differ ently: Take 50 mg by mouth Daily. Taking Differently 90 tablet Macario Coulter MD naproxen (NAPROSYN) 500 mg tablet Take 500 mg by mouth 2 times daily (with breakfast & din ner). Taking Differently Parisa Torres MD omeprazole (PRILOSEC) 20 mg capsule Take 1 capsule by mouth every morning (before breakfas t). Taking 90 capsule Horacio Silvestre DO oxyCODONE (ROXICODONE) 30 MG immediate release tablet Take 30 mg by mouth every 8 hours as needed for Pain. Taking Differently Parisa Torres MD polyethylene glycol (MIRALAX) packet Take 1 diluted packet by mouth Daily as needed for Co nstipation. Patient not taking: Reported on 07/25/2018 Not Taking Macario Coulter MD pregabalin (LYRICA) 300 MG capsule Take 1 capsule by mouth every evening. Taking 30 capsul e Macario Coulter MD tamsulosin (FLOMAX) 0.4 mg CAPS Take 1 capsule by mouth nightly. Taking 90 capsule Horacio Tim Konrad, DO testosterone (ANDRODERM) 2 mg/[address] 1 patch onto the skin nightly. Taking 60 patch R oger S Purvin, DO traZODone (DESYREL) 50 mg tablet Take 2 tablets by mouth nightly. Taking 90 tablet Horacio Tim Konrad, DO urea (CARMOL) 40 % CREA Apply to affected areas daily Taking 120 g Nessa E Kareen, DPM Medication review performed and electronically signed by Luh Beauchamp, Internal Revenue Agent 13:36 Reviewed by Celine Garcia, PharmD 07/25/2018 15:08 Christ Dobbins MD - 07/25/2018 8:[address] [facility] Hospitalist Progress Note Geraldo Mcfadedn is a 78 y.o. male ASSESSMENT and PLAN: Active Hospital Problems Diagnosis Septic shock Acute respiratory failure with hypoxia HCAP (healthcare-associated pneumonia) ARF (acute renal failure) Resolved Hospital Problems No resolved problems to display. Septic shock likely 2/2 mulifocal pneumonia/HCAP -Presented to [facility] with mild encephalopathy, hypoxia, found to have multifo madhu pneumonia on chest x-ray -He was treated with ceftriaxone and clindamycin, given 2 L of normal saline, central line and arterial line were placed, and he was transferred to [facility] - Switched to vanc/cefepime on arrival here (increase dose of cefepeme given improved renal function) -Overnight, Levophed weaned off, lactate normal -His blood pressure stabilized, and he is down to 3 L of oxygen at this time - Has had repeated episodes of pneumonia, ST consult, repeat CT scan likely tomorrow (had e nlarged LN on last CT in May, f/u recommended) - WBC down from 24 to 11 - Afebrile overnight Acute hypoxic respiratory failure: -Due to pneumonia, smoked heavily for 15 years, and has some emphysema on imaging -will wean O2 as able, down from 6-3 L currently IDDM --BS in the 100's - Continue Lantus 10 units for now, SSI Acute on chronic kidney disease: -3 episodes of acute kidney injury this month (!) -Baseline creatinine appears to be around 1.3, indicating chronic kidney disease stage III -Creatinine fell quickly from 3.2-1.5 overnight with fluids, remove Tong catheter to make sure he can urinate well without cath - Should not be restarted on losartan at this time given frequent episode of VIKAS Hypothyroidism --continue levothyroxine. TSH and free T4 have been high recently, difficult to know what to make of this in setting of sepsis HTN --On losartan, which did not be restarted at this time Acute metabolic encephalopathy --Concerned that this may be a primary problem, related to large doses of duloxetine, prega balin, and trazodone at night - Encourage smaller doses of medicine for insomnia Hx CVA --continue aspirin, plavix, lipitor. GERD --continue PPI. Disposition : PT/OT eval today, may be able to transfer to floor Prophylaxis : heparin SUBJECTIVE: Denies chest pain, nausea, vomiting, abdominal pain. Slightly short of breath. Denies asp iration, coughing, choking with meals. Feels much better than last night. VITALS: Temp: 36.4 C (97.5 F), Pulse: 66, Resp: 15, BP: 131/76, SpO2 97 % on nasal cannula Temp Min: 36.4 C (97.5 F) Max: 37.6 C (99.7 F) Weight: 95.9 kg (211 lb 6.7 oz) Intake/Output Summary (Last 24 hours) at 07/25/2018 0859 Last data filed at 07/25/2018 0728 Gross per 24 hour Intake 3628 ml Output 1755 ml Net 1873 ml PHYSICAL EXAM: General: Alert, pleasant, sitting up, no distress Cardiovascular: Regular rate and rhythm, distant Respiratory: Slightly diminished breath sounds on the right with rhonchi, no increased work of breathing Abdomen: Soft, nontender, obese Extremities: Warm and well perfused, no edema Tong catheter present: Yes, remove today DIAGNOSTIC STUDIES: Available data and images were reviewed personally. Significant results and findings are a ddressed here or in the Assessment and Plan. Recent Results (from the past 24 hour(s)) CBC with Differential Result Value Ref Range WBC 24.3 (H) 4.6 - 10.5 K/uL RBC 4.22 (L) 4.36 - 5.83 M/uL Hemoglobin 12.7 (L) 13.1 - 17.4 g/dL Hematocrit 37.5 (L) 39.0 - 51.9 % MCV 88.9 82.0 - 96.0 fL MCH 30.1 27.7 - 32.3 pg MCHC 33.9 32.0 - 36.9 g/dL RDW-CV 16.5 0.0 - 17.0 % Platelet Count 156 150 - 450 K/uL MPV 10.9 9.4 - 12.4 fL % nRBC 0 <=0 per 100 WBCs Absolute nRBC 0.00 0.00 - 0.01 K/uL Comprehensive Metabolic Panel Result Value Ref Range Na 135 132 - 143 mmol/L K 4.8 3.3 - 4.9 mmol/L Cl 98 95 - 108 mmol/L CO2 22 (L) 23 - 34 mmol/L Anion Gap 15 7 - 16 mmol/L Glucose 170 (H) 70 - 110 mg/dL BUN 40 (H) 5 - 26 mg/dL Creatinine 3.24 (H) 0.70 - 1.40 mg/dL eGFR if not 19 (L) >=60 mL/min/1.73m2 Ca 8.6 8.3 - 10.0 mg/dL Albumin 3.4 3.0 - 4.5 g/dL Bilirubin Total 0.8 0.0 - 1.2 mg/dL Total Protein 8.0 6.6 - 8.5 g/dL AST 78 (H) 0 - 38 U/L ALT 90 (H) 16 - 63 U/L Alkaline Phosphatase 120 (H) 46 - 116 U/L Globulin 4.6 (H) 2.4 - 4.5 g/dL Albumin/Globulin Ratio 0.7 (L) 0.8 - 2.0 BUN/Creatinine Ratio 12.3 7.0 - 24.0 Troponin I Result Value Ref Range Troponin I <0.02 0.02 - 0.10 ng/mL ng/mL Protime INR Result Value Ref Range Prothrombin Time 10.4 9.3 - 11.4 seconds INR 1.0 0.8 - 1.2 Lactic Acid Result Value Ref Range Lactate 1.8 0.4 - 2.1 mmol/L T4, Free Result Value Ref Range FT4 2.1 (H) 0.8 - 1.5 ng/dL Magnesium Result Value Ref Range Magnesium 1.4 (L) 1.8 - 2.4 mg/dL Differential, Manual Result Value Ref Range % Seg Neutrophils 67.0 42.0 - 76.0 % % Lymphocytes 4.0 (L) 20.0 - 40.0 % % Monocytes 8.0 3.0 - 13.0 % % Eosinophils 9.0 (H) 0.0 - 7.0 % % Basophils 0.0 0.0 - 2.0 % % Metamyelocytes 1.0 (H) <0.0 % % Bands 11.0 (H) 0.0 - 7.0 % Absolute Seg Neutrophils 16.28 (H) 2.80 - 7.70 K/uL Absolute Lymphocytes 0.97 (L) 1.20 - 3.30 K/uL Absolute Monocytes 1.94 (H) 0.00 - 0.80 K/uL Absolute Eosinophils 2.19 (H) 0.00 - 0.70 K/uL Absolute Basophils 0.00 0.00 - 0.20 K/uL Absolute Metamyelocytes 0.24 K/uL Absolute Bands 2.67 (H) 0.00 - 0.15 K/uL Total Counted 100 RBC MORPHOLOGY Normal WBC MORPHOLOGY Normal PLT MORPHOLOGY Normal Culture, Blood Result Value Ref Range Culture No growth: Monitored continually by instrument for 5 days Culture, Blood Result Value Ref Range Culture No growth: Monitored continually by instrument for 5 days Blood Gas, Arterial Result Value Ref Range pH Temp Corrected, Arterial 7.34 (L) 7.35 - 7.45 pCO2 Temp Corrected, Arterial 43 35 - 45 mm Hg pO2 Temp Corrected, Arterial 91 69 - 116 mm Hg pH, Arterial 7.34 (L) 7.35 - 7.45 pCO2, Arterial 42 35 - 45 mm Hg pO2, Arterial 88 69 - 116 mm Hg HCO3, Arterial 22.6 17.0 - 28.0 mmol/L Base Excess, Arterial -3.0 (L) -2.4 - 2.3 mmol/L TCO2, Arterial 24 21 - 25 mmol/L O2 Saturation, Arterial 97 95 - 99 % FiO2 65.0 % PATIENT TEMP 37.5 Urinalysis with Microscopic with Culture if Indicated Result Value Ref Range Color Yellow Pale Yellow, Yellow Clarity Clear Clear pH, Urine 5.0 5.0 - 7.0 Specific [place] 1.020 1.003 - 1.030 Protein, Urine 30 mg/dL (A) Negative Blood, Urine 10 zi/uL (A) Negative Glucose, Urine 50 mg/dL (A) Normal Ketones, Urine Negative Negative Bilirubin, Urine Negative Negative Nitrite, Urine Negative Negative Leukocyte Esterase, Urine 25 jony/uL (A) Negative Urobilinogen, Urine Normal 0-1.0 mg/dL WBC UA 0-2 <=5 /HPF RBC UA None Seen <=5 /HPF SQUAMOUS EPITHELIAL UA Few (A) None Seen /LPF TRANSITIONAL EPITHELIAL UA Trace (A) None Seen /HPF BACTERIA UA None Seen None Seen /HPF MUCUS UA Rare (A) None seen /LPF CALCIUM OXALATE CRYSTALS UA Few (A) None Seen /HPF HYALINE CASTS UA Few (A) None Seen /LPF URINE COMMENT Urine Culture Not Indicated Basic Metabolic Panel Result Value Ref Range Na 136 136 - 145 mmol/L K 4.1 3.4 - 5.1 mmol/L Cl 107 98 - 107 mmol/L CO2 26 20 - 31 mmol/L Anion Gap 3 3 - 16 mmol/L Glucose 152 (H) 60 - 106 mg/dL BUN 33 (H) 9 - 23 mg/dL Creatinine 2.00 (H) 0.70 - 1.30 mg/dL eGFR if not 32 (L) >=60 mL/min/1.73m2 Ca 8.1 (L) 8.7 - 10.4 mg/dL BUN/Creatinine Ratio 16.5 Lactic Acid Result Value Ref Range Lactate 1.1 0.4 - 2.0 mmol/L Procalcitonin Result Value Ref Range Procalcitonin 0.16 <=0.50 ng/mL Comment Extra Lavender Top Tube Result Value Ref Range Extra Lavender Top Tube Done POC Glucose Result Value Ref Range Glucose, POC 151 (H) 70 - 109 mg/dL Sodium, Urine, Random Result Value Ref Range Sodium, Urine Random 93 40 - 220 mmol/L Creatinine, Urine, Random Result Value Ref Range Creatinine, Urine, Random 95 mg/dL CBC with Differential Result Value Ref Range WBC 11.3 (H) 4.0 - 11.0 K/uL RBC 3.47 (L) 4.30 - 5.70 M/uL Hemoglobin 10.4 (L) 13.5 - 18.0 g/dL Hematocrit 31.3 (L) 40.0 - 51.0 % MCV 90.2 83.0 - 101.0 fL MCH 30.0 28.0 - 35.0 pg MCHC 33.2 32.0 - 36.0 g/dL RDW-CV 16.6 (H) <15.0 % RDW-SD 53.9 (H) 35.1 - 46.3 fL Platelet Count 121 (L) 140 - 440 K/uL MPV 11.2 6.5 - 12.4 fL % Neutrophils 53.7 45.0 - 82.0 % % Lymphocytes 14.0 (L) 20.0 - 45.0 % % Monocytes 15.6 (H) 4.0 - 12.0 % % Eosinophils 15.0 (H) 0.0 - 5.0 % % Basophils 1.1 (H) 0.0 - 1.0 % % Immature Granulocytes 0.6 (H) 0.0 - 0.4 % Absolute Neutrophils 6.04 1.80 - 8.50 K/uL Absolute Lymphocytes 1.57 0.60 - 3.20 K/uL Absolute Monocytes 1.76 (H) 0.00 - 1.00 K/uL Absolute Eosinophils 1.69 (H) 0.00 - 0.40 K/uL Absolute Basophils 0.12 (H) 0.00 - 0.10 K/uL Absolute Immature Granulocytes 0.07 (H) 0.00 - 0.03 K/uL % nRBC 0 0 - 2 per 100 WBCs Absolute nRBC 0.00 0.00 - 0.01 K/uL Comprehensive Metabolic Panel Result Value Ref Range Na 136 136 - 145 mmol/L K 4.1 3.4 - 5.1 mmol/L Cl 107 98 - 107 mmol/L CO2 24 20 - 31 mmol/L Anion Gap 5 3 - 16 mmol/L Glucose 152 (H) 60 - 106 mg/dL BUN 29 (H) 9 - 23 mg/dL Creatinine 1.47 (H) 0.70 - 1.30 mg/dL eGFR if not 46 (L) >=60 mL/min/1.73m2 Ca 8.0 (L) 8.7 - 10.4 mg/dL Albumin 3.4 3.2 - 4.8 g/dL Bilirubin Total 0.8 0.3 - 1.2 mg/dL Total Protein 6.1 5.7 - 8.2 g/dL AST 48 (H) 0 - 34 U/L ALT 56 (H) 10 - 49 U/L Alkaline Phosphatase 100 46 - 116 U/L Globulin 2.7 2.1 - 3.8 g/dL Albumin/Globulin Ratio 1.3 0.8 - 1.9 BUN/Creatinine Ratio 19.7 Magnesium Result Value Ref Range Magnesium 1.5 (L) 1.6 - 2.6 mg/dL POC Glucose Result Value Ref Range Glucose, POC 147 (H) 70 - 109 mg/dL Ct Head Wo Contrast Result Date: 07/24/2018 EXAMINATION: CT HEAD WO CONTRAST HISTORY: altered mental status COMPARISON STUDY: May 13, 2018, July 15, 2018 TECHNIQUE: 5 mm axial slices were acquired through the brain without contrast. DOSE REPORT: CTDIvol: 40.4 mGy. DLP: 737 mGy-cm. Automated exposure control was utilized. FINDINGS: No evidence of an acute intracranial hemorrhage, mass lesion, or midline shift. Remote right cerebellar lacunar infarct. This is stable. The reinoso-white matter int erface is intact. The ventricles are symmetric. Sulci are mildly prominent. Basilar cisterns are patent. Mild periventricular white matter hypodensity. Calcifications are noted in the cavernous internal carotid arteries. Scattered ethmoid sinus mucosal thickening. Mastoid air cells are clear. No fracture. IMPRESSION: 1. No acute intracranial process. 2. Mild volume loss. 3. Mild white matter dis ease. 4. Remote right cerebellar lacunar infarct. 5. Mild sinus mucosal thickening. 6. The results of the study were discussed with MACARIO LEAL at 11:24 Dictated by: Franklyn Alba Xr Chest Ap Portable Result Date: 07/24/2018 EXAMINATION: XR CHEST AP PORTABLE HISTORY: post central line insertion COMPARISON STUDY: Ap ril 2017 FINDINGS: The lungs are again noted to have patchy right-sided airspace opacity . New subclavian central venous catheter is present on the left with the catheter tip termi nating in the superior vena cava. No pleural effusion. No pneumothorax. Heart size is sta ble. No acute osseous process. IMPRESSION: Central venous catheter placement. Multifocal pneumonia. Dictated by: Massimo mcfarlane Xr Chest Ap Portable Result Date: 07/24/2018 EXAMINATION: XR CHEST AP PORTABLE HISTORY: altered mental status, hypoxia COMPARISON STUDY: July 15, 2017 FINDINGS: The lungs are hypoventilated. Patchy right upper and lower airspa ce opacities. Hazy opacity is also noted laterally at the left base. Query small left pleu ral effusion. No pneumothorax. Heart size is stable. No acute osseous process. IMPRESSION: Multifocal pneumonia Dictated by: Massimo Alba Current Facility-Administered Medications: acetaminophen 650 mg Oral Q4H PRN aspirin 325 mg Oral QAM atorvaSTATin 10 mg Oral QAM bisacodyl 10 mg Rectal Daily PRN calcium carbonate 1,000 mg Oral Q4H PRN cefepime 2 g Intravenous Nightly cholecalciferol 2,000 Units Oral QAM clopidogrel 75 mg Oral QAM cyanocobalamin 1,000 mcg Oral QAM dextrose 12.5-25 g Intravenous PRN And dextrose 10% Intravenous Continuous PRN docusate sodium 100 mg Oral BID PRN DULoxetine 60 mg Oral QAM heparin 5,000 Units Subcutaneous 2 times per day insulin glargine 10 Units Subcutaneous Nightly insulin lispro 0-6 Units Subcutaneous 4x Daily WC and HS levothyroxine 225 mcg Oral QAM AC magnesium sulfate 2 g Intravenous Once melatonin 3 mg Oral Nightly PRN norepinephrine 1-30 mcg/min Intravenous Titrated ondansetron 4 mg Intravenous Q6H PRN pantoprazole 40 mg Oral QAM AC [START ON 07/26/2018] pneumococcal 0.5 mL Intramuscular Once PRN polyethylene glycol 17 g Oral Daily PRN senna 8.6 mg Oral BID PRN vancomycin 1 g Intravenous Q24H vancomycin per pharmacy Other Pharmacy Consult Total time of approximately 25 minutes was spent with the patient and/or patient's family, and/or on the patient's floor/unit, of which more than 50% was spent counseling and/or coord ination the patient's care as outlined above. Christ West 07/25/2018 8:59 [facility] aillard, Terra BourneD - 07/25/2018 3:15 AM PDTFormatting of this note might be different from the origina l. VANCOMYCIN PER PHARMACY PROTOCOL: AMS/Drug Name - Vancomycin Patient: Geraldo Mcfadden [id number] Admit: 07/24/2018 21:47 RELEVANT ALLERGIES: no allergies listed for antibiotics 78 yrs old male patient admitted on 07/24/2018 for septic shock. Patient is receiving vanc omycin starting on 07/24/18 for Pneumonia. 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 . Ri sk factors for MDR organisms include recent healthcare contact and h/o MRSA. Antimicrobials - Current Antibiotic Dates of Therapy Vancomycin 07/24 Cefepime 07/25- Antimicrobials - Discontinued Antibiotic Dates of Therapy Zosyn X 1 dose 07/24 Historical Vancomycin dosing (previous & current encounter): none Micro/Cultures/Diagnostics: Microbiology Results (Last 14 Days by Collected Date with Culture/Sensitivity) Procedure Component Value Units Date/Time Respiratory pathogen panel, NAAT [[id number]] Collected: 07/25/18 0011 Order Status: Sent Lab Status: In process Updated: 07/25/18 0029 Specimen: Tissue from Nasopharynx Culture, Blood [[id number]] Collected: 07/24/18 2310 Order Status: Sent Lab Status: In process Updated: 07/25/18 0028 Specimen: Peripheral Blood Culture, MRSA [[id number]] Collected: 07/24/182229 Order Status: Sent Lab Status: In process Updated: 07/24/182229 Specimen: Tissue from Nares Culture, Blood [[id number]] Collected: 07/24/182219 Order Status: Sent Lab Status: In process Updated: 07/24/182229 Specimen: Peripheral Blood Culture, Respiratory, Lower, Smear [[id number]] Order Status: Sent Lab Status: No result Specimen: Body Fluid from Sputum, Expectorated Culture, Blood [[id number]] Collected: 07/24/18 1107 Order Status: Completed Lab Status: Preliminary result Updated: 07/24/18 232 Specimen: Peripheral Blood Culture No growth: Monitored continually by instrument for 5 days Culture, Blood [[id number]] Collected: 07/24/18 1050 Order Status: Completed Lab Status: Preliminary result Updated: 07/24/18 232 Specimen: Peripheral Blood Culture No growth: Monitored continually by instrument for 5 days Culture, MRSA [[id number]] Collected: 07/15/18 0036 Order Status: Completed Lab Status: Final result Updated: 07/17/18 0749 Specimen: Tissue from Nares Culture 1+ Staphylococcus aureus,Methicillin resistant (MRSA) Culture, Blood [[id number]] Collected: 07/14/18 1230 Order Status: Completed Lab Status: Final result Updated: 07/19/18 1321 Specimen: Peripheral Blood Culture No growth after 5 days incubation. Culture, Blood [[id number]] Collected: 07/14/18 1218 Order Status: Completed Lab Status: Final result Updated: 07/19/18 1231 Specimen: Peripheral Blood Culture No growth after 5 days incubation. Relevant cultures from previous admits: Date Source Organisms Sensitivities 07/15/18 nares MRSA 1+ UA: Admission Wt: Weight: 95.9 kg (211 lb 6.7 oz) Current Wt: Weight: 95.9 kg (211 lb 6.7 oz) Min/Max Temp past 24 hours:Temp Av.1 C (98.7 F) Min: 36.6 C (97.9 F) Max: 3 7.6 C (99.7 F) Estimated Creatinine Clearance: 33 mL/min (A) (based on SCr of 2 mg/dL (H)). Intake/Output Summary (Last 24 hours) at 07/25/2018 0315 Last data filed at 07/25/2018 0300 Gross per 24 hour Intake Output 1175 ml Net -1175 ml Temp: [36.6 C (97.9 F)-37.6 C (99.7 F)] 36.6 C (97.9 F) Pulse: [71-110] 72 Resp: [14-21] 17 BP: (76-145)/(36-104) 104/61 Arterial Line BP: (93-141)/(44-70) 120/62 Recent Labs Lab 07/24/18 2220 07/24/18 1045 WBC -- 24.3* CREA 2.00* 3.24* LACTATE 1.1 1.8 PROCALCITONI 0.16 -- Imagin/19: CXR (1123)- multifocal pneumonia 07/24:CT Head wo contrast - IMPRESSION: 1. No acute intracranial process. 2. Mild volume loss. 3. Mild white matter disease. 4. Remote right cerebellar lacunar infarct. 5. Mild sinus mucosal thickening. Date 07/24 Time of Vancomycin draw -- Vancomycin result -- LEVEL or TROUGH Serum Creatinine 2 CrCl (mL/min) 33 Vanco load/bolus 1000 mg @ [facility] Vanco dose - current -- Vanco dose - new 1000 mg q24hr Assessment: Vancomycin Day # 1 Other antibiotics: Cefepime Target Trough: 15-20 mcg/ml for HAP WBC: 24.3; Renal: 2 (baseline-1.3 from 07/16/18); Temp: 99.7; Culture: pending; VS: press or stopped @ ~0030; vss Renal function: UOP: will assess after 24h UOP obtained Dosing weight: 78 kg (adj BW, as actual weight >30% over IBW) Plan: 1. Vancomycin initial dose 1000 mg (~13 mg/kg) IVPB x 1 given on 07/24/18 @ 1227 given @ [facility], followed by maintenance vancomycin 1000 mg IVPB q24h at [facility] starting 07/25 @ 120 0 2. Vancomycin level ordered for 07/26/18 @ 1100 (draw 60 minutes prior to hanging the 3rd do se) 3. Serum creatinine DAILY for first 3 [...] Dosing and Monitoring Protocol Electronically signed by: Simona Magallanes PharmD 07/25/2018 3:15 documented in this encounter Plan of Treatment [...] [place] | | | | | | [address] | | | | | | [phone] | | | | | | | | +--------+---------+ + + + | 02/26/ | Office | Urology | Lillie Fowler | | | 2019 | Visit | | LILLIE Lopez [address] | | | | | | [address] | | | | | | [place] | | | | | | [address] | | | | | | [phone] | | | | | | | | +--------+---------+ + + + | 03/16/ | Office | Neurology | Theresa, | | | 2018 | Visit | | SHONDA Mckinney [address] | | | | [address] [place], | | | | | | [place] [address] | | | | | | [phone] | | | | | | | | +--------+---------+ + + + | 04/12/ | Office | Primary Care | Massimo Ramos | | | 2019 | Visit | | MD Fer [address] | | | | | | [address] [place] | | | | | | [address] | | | | | | | | +--------+---------+ + + + | 10/03/ | Office | Neurology | Fabián Carias MD | | | 2019 | Visit | | [address] | | | | | | [place] | | | | | | [address] | | | | | | | [...] | | | care | | | Wall Washer-C | | | | | | | [...] | | | care | | | Wall Washer-C | | | | | | | [...] | | | care | | | Wall Washer-C | | | | | | | [...] | | | care | | | Wall Washer-C | | | | | | | [...] + | POC GLUCOSE | Routin | 07/27/2018 | | Results for this | | | e | 11:38 AM | | procedure are in the | | | | PDT | | results section. | + +--------+ + + + | RESPIRATORY THERAPY | Routin | 07/27/2018 | | | | COMMUNICATION | e | 9:19 AM | | | | | | PDT | | | + +--------+ + + + | POC GLUCOSE | Routin | 07/27/2018 | | Results for this | | | e | 6:20 AM | | procedure are in the | | | | PDT | | results section. | + +--------+ + + + | CBC WITH | Routin | 07/27/2018 | | Results for this | | DIFFERENTIAL | e | 5:46 AM | | procedure are in the | | | | PDT | | results section. | + +--------+ + + + | MAGNESIUM | Routin | 07/27/2018 | | Results for this | | | e | 5:46 AM | | procedure are in the | | | | PDT | | results section. | + +--------+ + + + | BASIC METABOLIC | Routin | 07/27/2018 | | Results for this | | PANEL | e | 5:46 AM | | procedure are in the | | | | PDT | | results section. | + +--------+ + + + | POC GLUCOSE | Routin | 07/26/2018 | | Results for this | | | e | 8:57 PM | | procedure are in the | | | | PDT | | results section. | + +--------+ + + + | POC GLUCOSE | Routin | 07/26/2018 | | Results for this | | | e | 4:24 PM | | procedure are in the | | | | PDT | | results section. | + +--------+ + + + | CT CHEST WO CONTRAST | Routin | 07/26/2018 | | Results for this | | | e | 12:14 PM | | procedure are in the | | | | PDT | | results section. | + +--------+ + + + | POC GLUCOSE | Routin | 07/26/2018 | | Results for this | | | e | 11:14 AM | | procedure are in the | | | | PDT | | results section. | + +--------+ + + + | VANCOMYCIN LEVEL | Timed | 07/26/2018 | | Results for this | | | | 11:07 AM | | procedure are in the | | | | PDT | | results section. | + +--------+ + + + | CBC WITH | Routin | 07/26/2018 | | Results for this | | DIFFERENTIAL | e | 6:15 AM | | procedure are in the | | | | PDT | | results section. | + +--------+ + + + | BASIC METABOLIC | Routin | 07/26/2018 | | Results for this | | PANEL | e | 6:15 AM | | procedure are in the | | | | PDT | | results section. | + +--------+ + + + | POC GLUCOSE | Routin | 07/25/2018 | | Results for this | | | e | 8:47 PM | | procedure are in the | | | | PDT | | results section. | + +--------+ + + + | POC GLUCOSE | Routin | 07/25/2018 | | Results for this | | | e | 5:02 PM | | procedure are in the | | | | PDT | | results section. | + +--------+ + + + | POC GLUCOSE | Routin | 07/25/2018 | | Results for this | | | e | 11:46 AM | | procedure are in the | | | | PDT | | results section. | + +--------+ + + + | POC GLUCOSE | Routin | 07/25/2018 | | Results for this | | | e | 6:17 AM | | procedure are in the | | | | PDT | | results section. | + +--------+ + + + | CBC WITH | Routin | 07/25/2018 | | Results for this | | DIFFERENTIAL | e | 4:27 AM | | procedure are in the | | | | PDT | | results section. | + +--------+ + + + | MAGNESIUM | Routin | 07/25/2018 | | Results for this | | | e | 4:27 AM | | procedure are in the | | | | PDT | | results section. | + +--------+ + + + | COMPREHENSIVE | Routin | 07/25/2018 | | Results for this | | METABOLIC PANEL | e | 4:27 AM | | procedure are in the | | | | PDT | | results section. | + +--------+ + + + | RESPIRATORY VIRUS | Routin | 07/25/2018 | | Results for this | | ANTIGENS PROFILE | e | 12:11 AM | | procedure are in the | | | | PDT | | results section. | + +--------+ + + + | SODIUM, URINE, | Routin | 07/24/2018 | | Results for this | | RANDOM | e | 11:23 PM | | procedure are in the | | | | PDT | | results section. | + +--------+ + + + | CREATININE, URINE, | Routin | 07/24/2018 | | Results for this | | RANDOM | e | 11:23 PM | | procedure are in the | | | | PDT | | results section. | + +--------+ + + + | CULTURE, BLOOD | STAT | 07/24/2018 | | Results for this | | | | 11:10 PM | | procedure are in the | | | | PDT | | results section. | + +--------+ + + + | POC GLUCOSE | Routin | 07/24/2018 | | Results for this | | | e | 10:32 PM | | procedure are in the | | | | PDT | | results section. | + +--------+ + + + | CULTURE, MRSA | Routin | 07/24/2018 | | Results for this | | | e | 10:30 PM | | procedure are in the | | | | PDT | | results section. | + +--------+ + + + | EXTRA LAVENDER TOP | Routin | 07/24/2018 | | Results for this | | TUBE | e | 10:23 PM | | procedure are in the | | | | PDT | | results section. | + +--------+ + + + | PROCALCITONIN, SERUM | STAT | 07/24/2018 | | Results for this | | | | 10:20 PM | | procedure are in the | | | | PDT | | results section. | + +--------+ + + + | CULTURE, BLOOD | STAT | 07/24/2018 | | Results for this | | | | 10:20 PM | | procedure are in the | | | | PDT | | results section. | + +--------+ + + + | LACTIC ACID | STAT | 07/24/2018 | | Results for this | | | | 10:20 PM | | procedure are in the | | | | PDT | | results section. | + +--------+ + + + | BASIC METABOLIC | STAT | 07/24/2018 | | Results for this | | PANEL | | 10:20 PM | | procedure are in the | | | | PDT | | results section. | + +--------+ + + + | XR CHEST AP PORTABLE | Routin | 07/24/2018 | | Results for this | | | e | 11:45 AM | | procedure are [...] | | + + + POC Glucose (07/27/2018 11:38 AM PDT) + +---------+ + + + | Component | Value | Ref Range | Performed | Pathologist | | | | | At | Signature | + +---------+ + + + | Glucose, | 139 (H) | 70 - 109 mg/dL | [facility] | | | POC | | | [facility] | | | | | [facility] | | | | | | [facility] - | | | | | | LABORATORY | | + +---------+ + + + + + | Specimen | + + | Blood | + + + + + + + | Performing | Address | City/State/Zipcode | Phone Number | | Organization | | | | + + + + + | [facility] | [address] | [place] | [phone] | | [facility] | | [address] | | | - LABORATORY | | | | + + + + + POC Glucose (07/27/2018 6:20 AM PDT) + +---------+ + + + | Component | Value | Ref Range | Performed | Pathologist | | | | | At | Signature | + +---------+ + + + | Glucose, | 137 (H) | 70 - 109 mg/dL | [facility] | | | POC | | | [facility] | | | | | | [facility] | | | | | | [facility] - | | | | | | LABORATORY | | + +---------+ + + + + + | Specimen | + + | Blood | + + + + + + + | Performing | Address | City/State/Zipcode | Phone Number | | Organization | | | | + + + + + | [facility] | [address] | [place] | [phone] | | [facility] | | [address] | | | - LABORATORY | | | | + + + + + Basic Metabolic Panel (07/27/2018 5:46 AM PDT) + + + + + + | Component | Value | Ref Range | Performed | Pathologist | | | | | At | Signature | + + + + + + | Na | 138 | 136 - 145 | [facility] | | | | | mmol/L | [facility] | | | | | | [facility] | | | | | | CENTER - | | | | | | LABORATORY | | + + + + + + | K | 4.0 | 3.4 - 5.1 | [facility] | | | | | mmol/L | [facility] | | | | | | [facility] | | | | | | CENTER - | | | | | | LABORATORY | | + + + + + + | Cl | 103 | 98 - 107 mmol/L | [facility] | | | | | | [facility] | | | | | | [facility] | | | | | | CENTER - | | | | | | LABORATORY | | + + + + + + | CO2 | 28 | 20 - 31 mmol/L | [facility] | | | | | | [facility] | | | | | | [facility] | | | | | | C[facility] - | | | | | | LABORATORY | | + + + + + + | Anion Gap | 7 | 3 - 16 mmol/L | [facility] | | | | | | [facility] | | | | | | [facility] | | | | | | C[facility] - | | | | | | LABORATORY | | + + + + + + | Glucose | 147 (H) | 60 - 106 mg/dL | [facility] | | | | | | [facility] | | | | | | [facility] | | | | | | C[facility] - | | | | | | LABORATORY | | + + + + + + | BUN | 20 | 9 - 23 mg/dL | [place] | | | | | | [facility] | | | | | | [facility] | | | | | | CENTER - | | | | | | LABORATORY | | + + + + + + | Creatinine | 1.02 | 0.70 - 1.30 | [facility] | | | | | mg/dL | [facility] | | | | | | [facility]ICAL | | | | | | CENTER - | | | | | | LABORATORY | | + + + + + + | eGFR if not | >60Comment: GLOMERULAR | >=60 | [facility] | | | | FILTRATION | mL/min/1.73m2 | [facility] | | | [place] | RATE,ESTIMATED | | MEDICAL | | | | mL/min/1.06w0Akwz than | | CENTER - | | | | 60 Chronic kidney | | LABORATORY | | | | disease,if found over [...] + + + + | Calcium | 9.8 | 8.7 - 10.4 | [facility] | | | | | mg/dL | [facility] | | | | | | [facility] | | | | | | CENTER - | | | | | | LABORATORY | | + + + + + + | BUN/Creatin | 19.6 | | [facility] | | | ine Ratio | | | [facility] | | | | | | [facility] | | | | | | CENTER - | | | | | | LABORATORY | | + + + + + + + + | Specimen | + + | Blood | + + + + + + + | Performing | Address | City/State/Zipcode | Phone Number | | Organization | | | | + + + + + | [facility] | [address] | [place] | [phone] | | [facility] | | [address] | | | - LABORATORY | | | | + + + + + CBC with Differential (07/27/2018 5:46 AM PDT) + + + + + + | Component | Value | Ref Range | Performed | Pathologist | | | | | At | Signature | + + + + + + | WBC | 8.2 | 4.0 - 11.0 K/uL | [facility] | | | | | | [facility] | | | | | | [facility] | | | | | | C[facility] - | | | | | | LABORATORY | | + + + + + + | RBC | 3.98 (L) | 4.30 - 5.70 | [facility] | | | | | M/uL | [facility] | | | | | | [facility] | | | | | | CENTER - | | | | | | LABORATORY | | + + + + + + | Hemoglobin | 11.7 (L) | 13.5 - 18.0 | [facility] | | | | | g/dL | [facility] | | | | | | [facility] | | | | | | CENTER - | | | | | | LABORATORY | | + + + + + + | Hematocrit | 35.4 (L) | 40.0 - 51.0 % | [facility] | | | | | | [facility] | | | | | | [facility] | | | | | | CENTER - | | | | | | LABORATORY | | + + + + + + | MCV | 88.9 | 83.0 - 101.0 fL | [facility] | | | | | | [facility] | | | | | | [facility] | | | | | | C[facility] - | | | | | | LABORATORY | | + + + + + + | MCH | 29.4 | 28.0 - 35.0 pg | [facility] | | | | | | [facility] | | | | | | [facility] | | | | | | C[facility] - | | | | | | LABORATORY | | + + + + + + | MCHC | 33.1 | 32.0 - 36.0 | [facility] | | | | | g/dL | [facility] | | | | | | [facility] | | | | | | CENTER - | | | | | | LABORATORY | | + + + + + + | RDW-CV | 15.6 (H) | <15.0 % | [facility] | | | | | | [facility] | | | | | | [facility] | | | | | | C[facility] - | | | | | | LABORATORY | | + + + + + + | RDW-SD | 51.3 (H) | 35.1 - 46.3 fL | [facility] | | | | | | [facility] | | | | | | [facility] | | | | | | C[facility] - | | | | | | LABORATORY | | + + + + + + | Platelet | 150 | 140 - 440 K/uL | [facility] | | | Count | | | [facility] | | | | | | [facility] | | | | | | CENTER - | | | | | | LABORATORY | | + + + + + + | MPV | 10.8 | 6.5 - 12.4 fL | [facility] | | | | | | [facility] | | | | | | [facility] | | | | | | [facility] - | | | | | | LABORATORY | | + + + + + + | % | 49.9 | 45.0 - 82.0 % | [facility] | | | Neutrophils | | | [facility] | | | | | | [facility] | | | | | | CENTER - | | | | | | LABORATORY | | + + + + + + | % | 19.0 (L) | 20.0 - 45.0 % | [facility] | | | Lymphocytes | | | [facility] | | | | | | [facility] | | | | | | CENTER - | | | | | | LABORATORY | | + + + + + + | % Monocytes | 17.1 (H) | 4.0 - 12.0 % | [facility] | | | | | | [facility] | | | | | | [facility] | | | | | | C[facility] - | | | | | | LABORATORY | | + + + + + + | % | 11.7 (H) | 0.0 - 5.0 % | [facility] | | | Eosinophils | | | [facility] | | | | | | [facility] | | | | | | CENTER - | | | | | | LABORATORY | | + + + + + + | % Basophils | 1.8 (H) | 0.0 - 1.0 % | [facility] | | | | | | [facility] | | | | | | [facility] | | | | | | CENTER - | | | | | | LABORATORY | | + + + + + + | % Immature | 0.5 (H)Comment: | 0.0 - 0.4 % | [facility] | | | Granulocyte | Preliminary studIes have | | [facility] | | | s | indicated the IG% | | MEDICAL | | | | and/or IG# show promise | | CENTER - | | | | as an early screen for | | LABORATORY | | | | infection. | | | | + + + + + + | Absolute | 4.08 | 1.80 - 8.50 | [facility] | | | Neutrophils | | K/uL | [facility] | | | | | | [facility] | | | | | | CENTER - | | | | | | LABORATORY | | + + + + + + | Absolute | 1.56 | 0.60 - 3.20 | [facility] | | | Lymphocytes | | K/uL | [facility] | | | | | | [facility] | | | | | | CENTER - | | | | | | LABORATORY | | + + + + + + | Absolute | 1.40 (H) | 0.00 - 1.00 | [facility] | | | Monocytes | | K/uL | [facility] | | | | | | [facility] | | | | | | CENTER - | | | | | | LABORATORY | | + + + + + + | Absolute | 0.96 (H) | 0.00 - 0.40 | [facility] | | | Eosinophils | | K/uL | [facility] | | | | | | [facility]ICAL | | | | | | CENTER - | | | | | | LABORATORY | | + + + + + + | Absolute | 0.15 (H) | 0.00 - 0.10 | [facility] | | | Basophils | | K/uL | [facility] | | | | | | [facility] | | | | | | CENTER - | | | | | | LABORATORY | | + + + + + + | Absolute | 0.04 (H) | 0.00 - 0.03 | [facility] | | | Immature | | K/uL | [facility] | | | Granulocyte | | | MEDICAL | | | s | | | CENTER - | | | | | | LABORATORY | | + + + + + + | % nRBC | 0 | 0 - 2 per 100 | [facility] | | | | | WBCs | [facility] | | | | | | [facility]ICAL | | | | | | CENTER - | | | | | | LABORATORY | | + + + + + + | Absolute | 0.00 | 0.00 - 0.01 | [facility] | | | nRBC | | K/uL | [facility] | | | | | | [facility] | | | | | | CENTER - | | | | | | LABORATORY | | + + + + + + + + | Specimen | + + | Blood | + + + + + + + | Performing | Address | City/State/Zipcode | Phone Number | | Organization | | | | + + + + + | [facility] | [address] | [place] | [phone] | | [facility] | | [address] | | | - LABORATORY | | | | + + + + + Magnesium (07/27/2018 5:46 AM PDT) + +---------+ + + + | Component | Value | Ref Range | Performed | Pathologist | | | | | At | Signature | + +---------+ + + + | Magnesium | 1.5 (L) | 1.6 - 2.6 mg/dL | [facility] | | | | | | [facility] | | | | | | [facility] | | | | | | CENTER - | | | | | | LABORATORY | | + +---------+ + + + + + | Specimen | + + | Blood | + + + + + + + | Performing | Address | City/State/Zipcode | Phone Number | | Organization | | | | + + + + + | [facility] | [address] | [place] | [phone] | | [facility] | | [address] | | | - LABORATORY | | | | + + + + + POC Glucose (07/26/2018 8:57 PM PDT) + +---------+ + + + | Component | Value | Ref Range | Performed | Pathologist | | | | | At | Signature | + +---------+ + + + | Glucose, | 135 (H) | 70 - 109 mg/dL | [facility] | | | POC | | | [facility] | | | | | | [facility] | | | | | | CENTER - | | | | | | LABORATORY | | + +---------+ + + + + + | Specimen | + + | Blood | + + + + + + + | Performing | Address | City/State/Zipcode | Phone Number | | Organization | | | | + + + + + | [facility] | [address] | [place] | [phone] | | [facility] | | [address] | | | - LABORATORY | | | | + + + + + POC Glucose (07/26/2018 4:24 PM PDT) + +---------+ + + + | Component | Value | Ref Range | Performed | Pathologist | | | | | At | Signature | + +---------+ + + + | Glucose, | 136 (H) | 70 - 109 mg/dL | [facility] | | | POC | | | [facility] | | | | | | MEDICAL | | | | | | CENTER - | | | | | | LABORATORY | | + +---------+ + + + + + | Specimen | + + | Blood | + + + + + + + | Performing | Address | City/State/Zipcode | Phone Number | | Organization | | | | + + + + + | [facility] | [address] | [place], [place] | [phone] | | [facility] | | [address] | | | - LABORATORY | | | | + + + + + CT Chest wo Contrast (07/26/2018 12:14 PM PDT) + + | Specimen | + + | | + + + + + | Narrative | Performed At | + + + | UNENHANCED CHEST CT 07/26/2018 12:01 PM CLINICAL HISTORY: | [facility] | | Repeated episodes of pneumonia over the last few weeks, known | | | adenopathy in the chest, evaluate for masses, lesions, enlarging | | | lymphadenopathy COMPARISON: Radiographs July 24 | | | TECHNIQUE: Axial unenhanced images are performed through the chest, | | | along with multiplanar reformations. FINDINGS: A left approach | | | PICC is again present and terminates in the upper SVC. There is | | | calcified plaque in the aorta and coronary arteries. The main | | | pulmonary artery is borderline to mildly enlarged, measuring up to 3.1 | | | cm in diameter. Mildly prominent lymph nodes are scattered | | | throughout the mediastinum and measure up to 11 mm short axis in the | | | AP window and 13 mm adjacent to the bronchus intermedius. There is | | | a tiny hiatus hernia. There is no pleural or pericardial effusion | | | or pneumothorax. Small, ill-defined ground glass opacities are | | | scattered throughout the right upper and middle lobes, with lesser | | | involvement of the anterior right lower lobe, and minimal involvement | | | of the left lung. Minimal dependent density in the lungs is | | | consistent with atelectasis. Numerous tiny high density subpleural | | | nodular foci are present posteriorly in the lower lobes, and involve | | | the other lobes of the lungs to a much lesser degree. There is a 5 | | | mm noncalcified nodule in the anterolateral, basilar left lower lobe | | | on image 78. Minimal if any bronchial wall thickening is present, | | | without visible airway occlusion. There is rightward thoracic | | | curvature and extensive vertebral spondylosis. A healed fracture of | | | the upper sternal body is present. Imaged upper abdomen is | | | unremarkable. IMPRESSION - 1. SMALL, ILL-DEFINED GROUND GLASS | | | OPACITIES INVOLVING BOTH LUNGS, GREATEST IN THE RIGHT UPPER AND | | | MIDDLE LOBES, CONSISTENT WITH AN INFECTIOUS OR INFLAMMATORY ETIOLOGY, | | | AND RADIOGRAPHICALLY IMPROVED FROM IMAGING OF JULY 24. MILDLY | | | PROMINENT MEDIASTINAL LYMPH NODES ARE LIKELY REACTIVE. 2. TINY | | | HIGH DENSITY SUBPLEURAL NODULAR FOCI IN BOTH LUNGS WITH A BASILAR | | | PREDOMINANCE, POSSIBLY REFLECTING GRANULOMATA ALTHOUGH PREVIOUSLY | | | ASPIRATED HIGH DENSITY MATERIAL IS ALSO A CONSIDERATION. 3. | | | BORDERLINE ENLARGEMENT OF THE MAIN PULMONARY ARTERY, WHICH MAY | | | REFLECT PULMONARY ARTERIAL HYPERTENSION. 4. VASCULAR | | | CALCIFICATION. 5. SMALL HIATUS HERNIA. Dictated and Signed | | | by: Marbin Salvador MD Electronically signed: 07/26/2018 12:58 PM | | + + + + + | Procedure Note | + + | Osito, Rad Results In - 07/26/2018 1:01 PM PDT UNENHANCED CHEST CT 07/26/2018 12:01 PM | | | | CLINICAL HISTORY: Repeated episodes of pneumonia over the last few weeks, known | | adenopathy in the chest, evaluate for masses, lesions, enlarging lymphadenopathy | | | | | | COMPARISON: Radiographs July 24 | | | | TECHNIQUE: Axial unenhanced images are performed through the chest, along with | | multiplanar reformations. | | | | FINDINGS: A left approach PICC is again present and terminates in the upper | | SVC. There is calcified plaque in the aorta and coronary arteries. The main | | pulmonary artery is borderline to mildly enlarged, measuring up to 3.1 cm in | | diameter. Mildly prominent lymph nodes are scattered throughout the mediastinum | | and measure up to 11 mm short axis in the AP window and 13 mm adjacent to the | | bronchus intermedius. There is a tiny hiatus hernia. There is no pleural or | | pericardial effusion or pneumothorax. | | | | Small, ill-defined ground glass opacities are scattered throughout the right | | upper and middle lobes, with lesser involvement of the anterior right lower | | lobe, and minimal involvement of the left lung. Minimal dependent density in | | the lungs is consistent with atelectasis. Numerous tiny high density subpleural | | nodular foci are present posteriorly in the lower lobes, and involve the other | | lobes of the lungs to a much lesser degree. There is a 5 mm noncalcified nodule | | in the anterolateral, basilar left lower lobe on image 78. Minimal if any | | bronchial wall thickening is present, without visible airway occlusion. | | | | There is rightward thoracic curvature and extensive vertebral spondylosis. A | | healed fracture of the upper sternal body is present. Imaged upper abdomen is | | unremarkable. | | | | IMPRESSION - | | 1. SMALL, ILL-DEFINED GROUND GLASS OPACITIES INVOLVING BOTH LUNGS, GREATEST IN | | THE RIGHT UPPER AND MIDDLE LOBES, CONSISTENT WITH AN INFECTIOUS OR INFLAMMATORY | | ETIOLOGY, AND RADIOGRAPHICALLY IMPROVED FROM IMAGING OF JULY 24. MILDLY | | PROMINENT MEDIASTINAL LYMPH NODES ARE LIKELY REACTIVE. | | | | 2. TINY HIGH DENSITY SUBPLEURAL NODULAR FOCI IN BOTH LUNGS WITH A BASILAR | | PREDOMINANCE, POSSIBLY REFLECTING GRANULOMATA ALTHOUGH PREVIOUSLY ASPIRATED HIGH | | DENSITY MATERIAL IS ALSO A CONSIDERATION. | | | | 3. BORDERLINE ENLARGEMENT OF THE MAIN PULMONARY ARTERY, WHICH MAY REFLECT | | PULMONARY ARTERIAL HYPERTENSION. | | | | 4. VASCULAR CALCIFICATION. | | | | 5. SMALL HIATUS HERNIA. | | | | Dictated and Signed by: Marbin Salvador MD | | Electronically signed: 07/26/2018 12:58 PM | + + + +---------+ + + | Performing | Address | City/State/Zipcode | Phone Number | | Organization | | | | + +---------+ + + | [facility] | | | | + +---------+ + + POC Glucose (07/26/2018 11:14 AM PDT) + +---------+ + + + | Component | Value | Ref Range | Performed | Pathologist | | | | | At | Signature | + +---------+ + + + | Glucose, | 191 (H) | 70 - 109 mg/dL | [facility] | | | P[facility] | | | [facility] | [facility] | [facility] - | | | | | | [facility]ORY | | + +---------+ + + + + + | Specimen | + + | Blood | + + + + + + + | Performing | Address | City/State/Zipcode | Phone Number | | Organization | | | | + + + + + | [facility] | [address] | [place] | [phone] | | [facility] | | [id number] | | | - LABORATORY | | | | + + + + + Vancomycin Level (07/26/2018 11:07 AM PDT) + +-------+ + + + | Component | Value | Ref Range | Performed | Pathologist | | | | | At | Signature | + +-------+ + + + | Date of | | | [facility] | | | Last Dose | | | [facility] | | | | | | [facility] | | | | | | CENTER - | | | | | | LABORATORY | | + +-------+ + + + | Time of | | | [facility] | | | Last Dose | | | [facility] | | | | | | [facility] | | | | | | [facility] - | | | | | | LABORATORY | | + +-------+ + + + | Vancomycin | 5.7 | 5.0 - 40.0 | [facility] | | | Random | | ug/mL | [facility] | | | | | | [facility] | | | | | | CENTER - | | | | | | LABORATORY | | + +-------+ + + + + + | Specimen | + + | Blood | + + + + + + + | Performing | Address | City/State/Zipcode | Phone Number | | Organization | | | | + + + + + | [facility] | [address] | [place] | [phone] | | [facility] | | [address] | | | - LABORATORY | | | | + + + + + Basic Metabolic Panel (07/26/2018 6:15 AM PDT) + + + + + + | Component | Value | Ref Range | Performed | Pathologist | | | | | At | Signature | + + + + + + | Na | 137 | 136 - 145 | [facility] | | | | | mmol/L | [facility] | | | | | | [facility] | | | | | | CENTER - | | | | | | LABORATORY | | + + + + + + | K | 4.2 | 3.4 - 5.1 | [facility] | | | | | mmol/L | [facility] | | | | | | [facility] | | | | | | CENTER - | | | | | | LABORATORY | | + + + + + + | Cl | 103 | 98 - 107 mmol/L | [facility] | | | | | | [facility] | | | | | [facility] | | | | | | C[facility] - | | | | | | LABORATORY | | + + + + + + | CO2 | 27 | 20 - 31 mmol/L | [facility] | | | | | | [facility] | | | | | [facility] | | | | | | CENTER - | | | | | | LABORATORY | | + + + + + + | Anion Gap | 7 | 3 - 16 mmol/L | [facility] | | | | | | [facility] | [facility] | [facility] | [facility] | | | | | | [facility] - | | | | | | LABORATORY | | + + + + + + | Glucose | 159 (H) | 60 - 106 mg/dL | [facility] | | | | | | [facility] | [facility] | | | | | | [facility] - | | | | | | LABORATORY | | + + + + + + | BUN | 21 | 9 - 23 mg/dL | [facility] | | | | | | [facility] | | | [facility] | [facility] | | | | | | [facility] - | | | | | | LABORATORY | | + + + + + + | Creatinine | 1.08 | 0.70 - 1.30 | [facility] | | | | | mg/dL | [facility] | | [facility] | [facility] | | | | | | [facility] - | | | | | | LABORATORY | | + + + + + + | eGFR if not | >60Comment: GLOMERULAR | >=60 | [facility] | | | | FILTRATION | mL/min/1.73m2 | [facility] | | | [place] | RATE,ESTIMATED | | MEDICAL | | | | mL/min/1.07t9Gxsr than | | CENTER - | | | | 60 Chronic kidney | | LABORATORY | | | | disease,if found over [...] + + + + | Calcium | 10.2 | 8.7 - 10.4 | [facility] | | | | | mg/dL | [facility] | | | [facility] | | [facility] | | | | | | C[facility] - | | | | | | LABORATORY | | + + + + + + | BUN/Creatin | 19.4 | | [facility] | | | ine Ratio | | | [facility] | | | | | | [facility] | | | | | | CENTER - | | | | | | LABORATORY | | + + + + + + + + | Specimen | + + | Blood | + + + + + + + | Performing | Address | City/State/Zipcode | Phone Number | | Organization | | | | + + + + + | [facility] | [address] | [place], [place] | [phone] | | [facility] | | [address] | | | - LABORATORY | | | | + + + + + CBC with Differential (07/26/2018 6:15 AM PDT) + + + + + + | Component | Value | Ref Range | Performed | Pathologist | | | | | At | Signature | + + + + + + | WBC | 12.2 (H) | 4.0 - 11.0 K/uL | [facility] | | | | | | [facility] | | | [facility] | | [facility] | | | | | | [facility] - | | | | | | LABORATORY | | + + + + + + | RBC | 4.36 | 4.30 - 5.70 | [facility] | | | | | M/uL | [facility] | | | | | | [facility] | | | | | | CENTER - | | | | | | LABORATORY | | + + + + + + | Hemoglobin | 13.0 (L) | 13.5 - 18.0 | [facility] | | | | | g/dL | [facility] | | | | | | [facility] | | | | | | CENTER - | | | | | | LABORATORY | | + + + + + + | Hematocrit | 38.6 (L) | 40.0 - 51.0 % | [facility] | | | | | | [facility] | | | | | | [facility] | | | | | | CENTER - | | | | | | LABORATORY | | + + + + + + | MCV | 88.5 | 83.0 - 101.0 fL | [facility] | | | | | | [facility] | | | | | | [facility] | | | | | | [facility] - | | | | | | LABORATORY | | + + + + + + | MCH | 29.8 | 28.0 - 35.0 pg | [facility] | | | | | | [facility] | | | | | | [facility] | | | | | | CENTER - | | | | | | LABORATORY | | + + + + + + | MCHC | 33.7 | 32.0 - 36.0 | [facility] | | | | | g/dL | [facility] | | | | | | [facility] | | | | | | CENTER - | | | | | | LABORATORY | | + + + + + + | RDW-CV | 15.7 (H) | <15.0 % | [facility] | | | | | | [facility] | | | | | | [facility] | | | | | | CENTER - | | | | | | LABORATORY | | + + + + + + | RDW-SD | 51.1 (H) | 35.1 - 46.3 fL | [facility] | | | | | | [facility] | | | | | | [facility] | | | | | | CENTER - | | | | | | LABORATORY | | + + + + + + | Platelet | 156 | 140 - 440 K/uL | [facility] | | | Count | | | [facility] | | | | | | [facility] | | | | | | CENTER - | | | | | | LABORATORY | | + + + + + + | MPV | 11.1 | 6.5 - 12.4 fL | [facility] | | | | | | [facility] | | | | | | [facility] | | | | | | C[facility] - | | | | | | LABORATORY | | + + + + + + | % | 56.4 | 45.0 - 82.0 % | [facility] | | | Neutrophils | | | [facility] | | | | | | [facility] | | | | | | CENTER - | | | | | | LABORATORY | | + + + + + + | % | 17.5 (L) | 20.0 - 45.0 % | [facility] | | | Lymphocytes | | | [facility] | | | | | | [facility] | | | | | | CENTER - | | | | | | LABORATORY | | + + + + + + | % Monocytes | 14.4 (H) | 4.0 - 12.0 % | [facility] | | | | | | [facility] | | | | | | [facility] | | | | | | C[facility] - | | | | | | LABORATORY | | + + + + + + | % | 9.6 (H) | 0.0 - 5.0 % | [facility] | | | Eosinophils | | | [facility] | | | | | | [facility] | | | | | | CENTER - | | | | | | LABORATORY | | + + + + + + | % Basophils | 1.4 (H) | 0.0 - 1.0 % | [facility] | | | | | | [facility] | | | | | | [facility] | | | | | | CENTER - | | | | | | LABORATORY | | + + + + + + | % Immature | 0.7 (H)Comment: | 0.0 - 0.4 % | [facility] | | | Granulocyte | Preliminary studIes have | | [facility] | | | s | indicated the IG% | | MEDICAL | | | | and/or IG# show promise | | CENTER - | | | | as an early screen for | | LABORATORY | | | | infection. | | | | + + + + + + | Absolute | 6.90 | 1.80 - 8.50 | [facility] | | | Neutrophils | | K/uL | [facility] | | | | | | [facility]ICAL | | | | | | CENTER - | | | | | | LABORATORY | | + + + + + + | Absolute | 2.14 | 0.60 - 3.20 | [facility] | | | Lymphocytes | | K/uL | [facility] | | | | | | [facility] | | | | | | CENTER - | | | | | | LABORATORY | | + + + + + + | Absolute | 1.76 (H) | 0.00 - 1.00 | [facility] | | | Monocytes | | K/uL | [facility] | | | | | | [facility] | | | | | | CENTER - | | | | | | LABORATORY | | + + + + + + | Absolute | 1.17 (H) | 0.00 - 0.40 | [facility] | | | Eosinophils | | K/uL | [facility] | | | | | | [facility] | | | | | | CENTER - | | | | | | LABORATORY | | + + + + + + | Absolute | 0.17 (H) | 0.00 - 0.10 | [facility] | | | Basophils | | K/uL | [facility] | | | | | | [facility]ICAL | | | | | | CENTER - | | | | | | LABORATORY | | + + + + + + | Absolute | 0.08 (H) | 0.00 - 0.03 | [facility] | | | Immature | | K/uL | [facility] | | | Granulocyte | | | MEDICAL | | | s | | | CENTER - | | | | | | LABORATORY | | + + + + + + | % nRBC | 0 | 0 - 2 per 100 | [facility] | | | | | WBCs | [facility] | | | | | | [facility]ICAL | | | | | | CENTER - | | | | | | LABORATORY | | + + + + + + | Absolute | 0.00 | 0.00 - 0.01 | [facility] | | | nRBC | | K/uL | [facility] | | | | | | MEDICAL | | | | | | CENTER - | | | | | | LABORATORY | | + + + + + + + + | Specimen | + + | Blood | + + + + + + + | Performing | Address | City/State/Zipcode | Phone Number | | Organization | | | | + + + + + | [facility] | [address] | [place] | [phone] | | [facility] | | [address] | | | - LABORATORY | | | | + + + + + POC Glucose (07/25/2018 8:47 PM PDT) + +---------+ + + + | Component | Value | Ref Range | Performed | Pathologist | | | | | At | Signature | + +---------+ + + + | Glucose, | 161 (H) | 70 - 109 mg/dL | [facility] | | | POC | | | [facility] | | | | | [facility] | | | | | | CENTER - | | | | | | LABORATORY | | + +---------+ + + + + + | Specimen | + + | Blood | + + + + + + + | Performing | Address | City/State/Zipcode | Phone Number | | Organization | | | | + + + + + | [facility] | [address] | [place], [place] | [phone] | | [facility] | | [address] | | | - LABORATORY | | | | + + + + + POC Glucose (07/25/2018 5:02 PM PDT) + +---------+ + + + | Component | Value | Ref Range | Performed | Pathologist | | | | | At | Signature | + +---------+ + + + | Glucose, | 157 (H) | 70 - 109 mg/dL | [facility] | | | POC | | | [facility] | | | | | | [facility]ICAL | | | | | | CENTER - | | | | | | LABORATORY | | + +---------+ + + + + + | Specimen | + + | Blood | + + + + + + + | Performing | Address | City/State/Zipcode | Phone Number | | Organization | | | | + + + + + | [facility] | [address] | [place] | [phone] | | [facility] | | [address] | | | - LABORATORY | | | | + + + + + POC Glucose (07/25/2018 11:46 AM PDT) + +---------+ + + + | Component | Value | Ref Range | Performed | Pathologist | | | | | At | Signature | + +---------+ + + + | Glucose, | 179 (H) | 70 - 109 mg/dL | [facility] | | | POC | | | [facility] | | | | | | [facility] | | | | | | CENTER - | | | | | | LABORATORY | | + +---------+ + + + + + | Specimen | + + | Blood | + + + + + + + | Performing | Address | City/State/Zipcode | Phone Number | | Organization | | | | + + + + + | [facility] | [address] | [place] | [phone] | | [facility] | | [address] | | | - LABORATORY | | | | + + + + + POC Glucose (07/25/2018 6:17 AM PDT) + +---------+ + + + | Component | Value | Ref Range | Performed | Pathologist | | | | | At | Signature | + +---------+ + + + | Glucose, | 147 (H) | 70 - 109 mg/dL | [facility] | | | POC | | | [facility] | | | | | | [facility] | | | | | | CENTER - | | | | | | LABORATORY | | + +---------+ + + + + + | Specimen | + + | Blood | + + + + + + + | Performing | Address | City/State/Zipcode | Phone Number | | Organization | | | | + + + + + | [facility] | [address] | [place] | [phone] | | [facility] | | [address] | | | - LABORATORY | | | | + + + + + Magnesium (07/25/2018 4:27 AM PDT) + +---------+ + + + | Component | Value | Ref Range | Performed | Pathologist | | | | | At | Signature | + +---------+ + + + | Magnesium | 1.5 (L) | 1.6 - 2.6 mg/dL | [facility] | | | | | | [facility] | | | | | | [facility]ICAL | | | | | | CENTER - | | | | | | LABORATORY | | + +---------+ + + + + + | Specimen | + + | Blood | + + + + + + + | Performing | Address | City/State/Zipcode | Phone Number | | Organization | | | | + + + + + | [facility] | [address] | [place] | [phone] | | [facility] | | [address] | | | - LABORATORY | | | | + + + + + Comprehensive Metabolic Panel (07/25/2018 4:27 AM PDT) + + + + + + | Component | Value | Ref Range | Performed | Pathologist | | | | | At | Signature | + + + + + + | Na | 136 | 136 - 145 | [facility] | | | | | mmol/L | [facility] | | | | | | [facility]ICAL | | | | | | CENTER - | | | | | | LABORATORY | | + + + + + + | K | 4.1 | 3.4 - 5.1 | [facility] | | | | | mmol/L | [facility] | | | | | | [facility]ICAL | | | | | | CENTER - | | | | | | LABORATORY | | + + + + + + | Cl | 107 | 98 - 107 mmol/L | [facility] | | | | | | [facility] | | | | | | [facility]ICAL | | | | | | CENTER - | | | | | | LABORATORY | | + + + + + + | CO2 | 24 | 20 - 31 mmol/L | [facility] | | | | | | [facility] | | | | | | [facility] | | | | | | CENTER - | | | | | | LABORATORY | | + + + + + + | Anion Gap | 5 | 3 - 16 mmol/L | [facility] | | | | | | [facility] | | | | | | [facility] | | | | | | CENTER - | | | | | | LABORATORY | | + + + + + + | Glucose | 152 (H) | 60 - 106 mg/dL | [facility] | | | | | | [facility] | | | | | | [facility] | | | | | | CENTER - | | | | | | LABORATORY | | + + + + + + | BUN | 29 (H) | 9 - 23 mg/dL | [facility] | | | | | | [facility] | | | | | | [facility]ICAL | | | | | | CENTER - | | | | | | LABORATORY | | + + + + + + | Creatinine | 1.47 (H) | 0.70 - 1.30 | [facility] | | | | | mg/dL | [facility] | | | | | | MEDICAL | | | | | | CENTER - | | | | | | LABORATORY | | + + + + + + | eGFR if not | 46 (L)Comment: | >=60 | [facility] | | | | GLOMERULAR FILTRATION | mL/min/1.73m2 | [facility] | | | [place] | RATE,ESTIMATED | | MEDICAL | | | | mL/min/1.63e3Aaph than | | CENTER - | | | | 60 Chronic kidney | | LABORATORY | | | | disease,if found over [...] + + + + | Calcium | 8.0 (L) | 8.7 - 10.4 | [facility] | | | | | mg/dL | [facility] | | | | | | MEDICAL | | | | | | CENTER - | | | | | | LABORATORY | | + + + + + + | Albumin | 3.4 | 3.2 - 4.8 g/dL | [facility] | | | | | | [facility] | | | | | | [facility]ICAL | | | | | | CENTER - | | | | | | LABORATORY | | + + + + + + | Bilirubin | 0.8 | 0.3 - 1.2 mg/dL | [facility] | | | Total | | | [facility] | | | | | | MEDICAL | | | | | | CENTER - | | | | | | LABORATORY | | + + + + + + | Total | 6.1 | 5.7 - 8.2 g/dL | [facility] | | | Protein | | | [facility] | | | | | | MEDICAL | | | | | | CENTER - | | | | | | LABORATORY | | + + + + + + | AST | 48 (H) | 0 - 34 U/L | [facility] | | | | | | [facility] | | | | | | [facility]ICAL | | | | | | CENTER - | | | | | | LABORATORY | | + + + + + + | ALT | 56 (H) | 10 - 49 U/L | [facility] | | | | | | [facility] | | | | | | [facility]ICAL | | | | | | CENTER - | | | | | | LABORATORY | | + + + + + + | Alkaline | 100 | 46 - 116 U/L | [facility] | | | Phosphatase | | | [facility] | | | | | | MEDICAL | | | | | | CENTER - | | | | | | LABORATORY | | + + + + + + | Globulin | 2.7 | 2.1 - 3.8 g/dL | [facility] | | | | | | [facility] | | | | | | [facility] | | | | | | CENTER - | | | | | | LABORATORY | | + + + + + + | Albumin/Lizbeth | 1.3 | 0.8 - 1.9 | [facility] | | | bulin Ratio | | | [facility] | | | | | | [facility]ICAL | | | | | | CENTER - | | | | | | LABORATORY | | + + + + + + | BUN/Creatin | 19.7 | | [facility] | | | ine Ratio | | | [facility] | | | | | | [facility]ICAL | | | | | | CENTER - | | | | | | LABORATORY | | + + + + + + + + | Specimen | + + | Blood | + + + + + + + | Performing | Address | City/State/Zipcode | Phone Number | | Organization | | | | + + + + + | [facility] | [address] | [place] | [phone] | | [facility] | | [address] | | | - LABORATORY | | | | + + + + + CBC with Differential (07/25/2018 4:27 AM PDT) + + + + + + | Component | Value | Ref Range | Performed | Pathologist | | | | | At | Signature | + + + + + + | WBC | 11.3 (H) | 4.0 - 11.0 K/uL | [facility] | | | | | | [facility] | | | | | | [facility] | | | | | | CENTER - | | | | | | LABORATORY | | + + + + + + | RBC | 3.47 (L) | 4.30 - 5.70 | [facility] | | | | | M/uL | [facility] | | | | | | [facility]ICAL | | | | | | CENTER - | | | | | | LABORATORY | | + + + + + + | Hemoglobin | 10.4 (L) | 13.5 - 18.0 | [facility] | | | | | g/dL | [facility] | | | | | | [facility]ICAL | | | | | | CENTER - | | | | | | LABORATORY | | + + + + + + | Hematocrit | 31.3 (L) | 40.0 - 51.0 % | [facility] | | | | | | [facility] | | | | | | [facility] | | | | | | CENTER - | | | | | | LABORATORY | | + + + + + + | MCV | 90.2 | 83.0 - 101.0 fL | [facility] | | | | | | [facility] | | | | | | [facility] | | | | | | CENTER - | | | | | | LABORATORY | | + + + + + + | MCH | 30.0 | 28.0 - 35.0 pg | [facility] | | | | | | [facility] | | | | | | [facility] | | | | | | CENTER - | | | | | | LABORATORY | | + + + + + + | MCHC | 33.2 | 32.0 - 36.0 | [facility] | | | | | g/dL | [facility] | | | | | | [facility] | | | | | | CENTER - | | | | | | LABORATORY | | + + + + + + | RDW-CV | 16.6 (H) | <15.0 % | [facility] | | | | | | [facility] | | | | | | [facility] | | | | | | CENTER - | | | | | | LABORATORY | | + + + + + + | RDW-SD | 53.9 (H) | 35.1 - 46.3 fL | [facility] | | | | | | [facility] | | | | | | [facility] | | | | | | CENTER - | | | | | | LABORATORY | | + + + + + + | Platelet | 121 (L) | 140 - 440 K/uL | [facility] | | | Count | | | [facility] | | | | | | [facility] | | | | | | CENTER - | | | | | | LABORATORY | | + + + + + + | MPV | 11.2 | 6.5 - 12.4 fL | [facility] | | | | | | [facility] | | | | | | [facility] | | | | | | CENTER - | | | | | | LABORATORY | | + + + + + + | % | 53.7 | 45.0 - 82.0 % | [facility] | | | Neutrophils | | | [facility] | | | | | | [facility]ICAL | | | | | | CENTER - | | | | | | LABORATORY | | + + + + + + | % | 14.0 (L) | 20.0 - 45.0 % | [facility] | | | Lymphocytes | | | [facility] | | | | | | [facility]ICAL | | | | | | CENTER - | | | | | | LABORATORY | | + + + + + + | % Monocytes | 15.6 (H) | 4.0 - 12.0 % | [facility] | | | | | | [facility] | | | | | | [facility] | | | | | | CENTER - | | | | | | LABORATORY | | + + + + + + | % | 15.0 (H) | 0.0 - 5.0 % | [facility] | | | Eosinophils | | | [facility] | | | | | | [facility]ICAL | | | | | | CENTER - | | | | | | LABORATORY | | + + + + + + | % Basophils | 1.1 (H) | 0.0 - 1.0 % | [facility] | | | | | | [facility] | | | | | | [facility] | | | | | | CENTER - | | | | | | LABORATORY | | + + + + + + | % Immature | 0.6 (H)Comment: | 0.0 - 0.4 % | [facility] | | | Granulocyte | Preliminary studIes have | | [facility] | | | s | indicated the IG% | | MEDICAL | | | | and/or IG# show promise | | CENTER - | | | | as an early screen for | | LABORATORY | | | | infection. | | | | + + + + + + | Absolute | 6.04 | 1.80 - 8.50 | [facility] | | | Neutrophils | | K/uL | [facility] | | | | | | [facility]ICAL | | | | | | CENTER - | | | | | | LABORATORY | | + + + + + + | Absolute | 1.57 | 0.60 - 3.20 | [facility] | | | Lymphocytes | | K/uL | [facility] | | | | | | [facility] | | | | | | CENTER - | | | | | | LABORATORY | | + + + + + + | Absolute | 1.76 (H) | 0.00 - 1.00 | [facility] | | | Monocytes | | K/uL | [facility] | | | | | | [facility] | | | | | | CENTER - | | | | | | LABORATORY | | + + + + + + | Absolute | 1.69 (H) | 0.00 - 0.40 | [facility] | | | Eosinophils | | K/uL | [facility] | | | | | | MEDICAL | | | | | | CENTER - | | | | | | LABORATORY | | + + + + + + | Absolute | 0.12 (H) | 0.00 - 0.10 | [facility] | | | Basophils | | K/uL | [facility] | | | | | | MEDICAL | | | | | | CENTER - | | | | | | LABORATORY | | + + + + + + | Absolute | 0.07 (H) | 0.00 - 0.03 | [facility] | | | Immature | | K/uL | [facility] | | | Granulocyte | | | MEDICAL | | | s | | | CENTER - | | | | | | LABORATORY | | + + + + + + | % nRBC | 0 | 0 - 2 per 100 | [facility] | | | | | WBCs | [facility] | | | | | | [facility] | | | | | | CENTER - | | | | | | LABORATORY | | + + + + + + | Absolute | 0.00 | 0.00 - 0.01 | [facility] | | | nRBC | | K/uL | [facility] | | | | | | [facility]ICAL | | | | | | CENTER - | | | | | | LABORATORY | | + + + + + + + + | Specimen | + + | Blood | + + + + + + + | Performing | Address | City/State/Zipcode | Phone Number | | Organization | | | | + + + + + | [facility] | [address] | [place] | [phone] | | [facility] | | [address] | | | - LABORATORY | | | | + + + + + Respiratory pathogen panel, NAAT (07/25/2018 12:11 AM PDT) + + + + + + | Component | Value | Ref Range | Performed | Pathologist | | | | | At | Signature | + + + + + + | Influenza A | Not Detected | Not Detected | [facility] | | | PCR | | | [facility] | | | | | | MEDICAL | | | | | | CENTER - | | | | | | LABORATORY | | + + + + + + | Influenza A | Not Detected | Not Detected | [facility] | | | H1 | | | [facility] | | | [facility] | | [facility] | | | | | | CENTER - | | | | | | LABORATORY | | + + + + + + | Influenza A | Not Detected | Not Detected | [facility] | | | H3 | | | [facility] | | | [facility] | | [facility] | | | | | | CENTER - | | | | | | LABORATORY | | + + + + + + | Influenza B | Not Detected | Not Detected | [facility] | | | PCR | | | [facility] | | | | | | [facility]ICAL | | | | | | CENTER - | | | | | | LABORATORY | | + + + + + + | Parainfluen | Not Detected | Not Detected | [facility] | | | za 1 | | | [facility] | | | [facility] | | [facility] | | | | | | CENTER - | | | | | | LABORATORY | | + + + + + + | Parainfluen | Not Detected | Not Detected | [facility] | | | za 2 | | | [facility] | | | | | | [facility] | | | | | | CENTER - | | | | | | LABORATORY | | + + + + + + | Parainfluen | Not Detected | Not Detected | [facility] | | | za 3 | | | [facility] | | | | | | [facility] | | | | | | [facility] - | | | | | | LABORATORY | | + + + + + + | Parainfluen | Not Detected | Not Detected | [facility] | | | za 4 | | | [facility] | | | | | | [facility] | | | | | | [facility] - | | | | | | LABORATORY | | + + + + + + | RSV A | Not Detected | Not Detected | [facility] | [facility] | [facility] | | | | | [facility] | | | | | | [facility] - | | | | | | LABORATORY | | + + + + + + | RSV B | Not Detected | Not Detected | [facility] | [facility] | | | | | | [facility] | | | | | | [facility] - | | | | | | LABORATORY | | + + + + + + | Adenovirus | Not Detected | Not Detected | [facility] | [facility] | | | [facility] | [facility] | | | | | | [facility] - | | | | | | LABORATORY | | + + + + + + | Human | Not Detected | Not Detected | [facility] | | | Metapneumov | | | [facility] | | | irus | | | MEDICAL | | | | | | CENTER - | | | | | | LABORATORY | | + + + + + + | Rhinovirus/ | Not Detected | Not Detected | [facility] | | | Enterovirus | | | [facility] | | | | | | [facility] | | | | | | CENTER - | | | | | | LABORATORY | | + + + + + + | Bordetella | Not Detected | Not Detected | [facility] | | | Pertussis | | | [facility] | | | PCR | | | MEDICAL | | | | | | CENTER - | | | | | | LABORATORY | | + + + + + + | Bordetella | Not Detected | Not Detected | [facility] | | | holmesii | | | [facility] | | | | | | [facility] | | | | | | CENTER - | | | | | | LABORATORY | | + + + + + + | Bordetella | Not Detected | Not Detected | [facility] | | | parapertuss | | | [facility] | | | is/bronchis | | | MEDICAL | | | eptica NAAT | | | CENTER - | | | | | | LABORATORY | | + + + + + + + + | Specimen | + + | Tissue - Entire | | nasopharynx (body | | structure) | + + + + + + + | Performing | Address | City/State/Zipcode | Phone Number | | Organization | | | | + + + + + | [facility] | [address] | [place] | [phone] | | [facility] | | [address] | | | - LABORATORY | | | | + + + + + Creatinine, Urine, Random (07/24/2018 11:23 PM PDT) + +-------+ + + + | Component | Value | Ref Range | Performed | Pathologist | | | | | At | Signature | + +-------+ + + + | Creatinine, | 95 | mg/dL | [facility] | | | Urine, | | | [facility] | | | Random | | | [facility] | | | | | | CENTER - | | | | | | LABORATORY | | + +-------+ + + + + + | Specimen | + + | Urine - Urine | | specimen obtained by | | single | | catheterization of | | bladder (specimen) | + + + + + + + | Performing | Address | City/State/Zipcode | Phone Number | | Organization | | | | + + + + + | [facility] | [address] | [place], [place] | [phone] | | [facility] | | [address] | | | - LABORATORY | | | | + + + + + Sodium, Urine, Random (07/24/2018 11:23 PM PDT) + +-------+ + + + | Component | Value | Ref Range | Performed | Pathologist | | | | | At | Signature | + +-------+ + + + | Sodium, | 93 | 40 - 220 mmol/L | [facility] | | | Urine | | | [facility] | | | Random | | | MEDICAL | | | | | | CENTER - | | | | | | LABORATORY | | + +-------+ + + + + + | Specimen | + + | Urine - Urine | | specimen obtained by | | single | | catheterization of | | bladder (specimen) | + + + + + + + | Performing | Address | City/State/Zipcode | Phone Number | | Organization | | | | + + + + + | [facility] | [address] | [place] | [phone] | | [facility] | | [address] | | | - LABORATORY | | | | + + + + + Culture, Blood (07/24/2018 11:10 PM PDT) + + + + + + | Component | Value | Ref Range | Performed | Pathologist | | | | | At | Signature | + + + + + + | Culture | No growth after 5 days | | [facility] | | | | incubation. | | [facility] | | | | | | [facility]ICAL | | | | | | CENTER - | | | | | | LABORATORY | | + + + + + + + + | Specimen | + + | Blood - Peripheral | | blood specimen | | (specimen) | + + + + + + + | Performing | Address | City/State/Zipcode | Phone Number | | Organization | | | | + + + + + | [facility] | [address] | [place] | [phone] | | [facility] | | [address] | | | - LABORATORY | | | | + + + + + POC Glucose (07/24/2018 10:32 PM PDT) + +---------+ + + + | Component | Value | Ref Range | Performed | Pathologist | | | | | At | Signature | + +---------+ + + + | Glucose, | 151 (H) | 70 - 109 mg/dL | [facility] | | | POC | | | [facility] | | | | | | [facility]ICAL | | | | | | CENTER - | | | | | | LABORATORY | | + +---------+ + + + + + | Specimen | + + | Blood | + + + + + + + | Performing | Address | City/State/Zipcode | Phone Number | | Organization | | | | + + + + + | [facility] | [address] | [place] | [phone] | | [facility] | | [address] | | | - LABORATORY | | | | + + + + + Culture, MRSA (07/24/2018 10:30 PM PDT) + + + + + + | Component | Value | Ref Range | Performed | Pathologist | | | | | At | Signature | + + + + + + | Culture | Negative for MRSA by | | [facility] | | | | chromogenic agar method | | [facility] | | | | | | [facility] | | | | | | [facility] - | | | | | | LABORATORY | | + + + + + + + + | Specimen | + + | Tissue - Both | | anterior nares (body | | structure) | + + + + + + + | Performing | Address | City/State/Zipcode | Phone Number | | Organization | | | | + + + + + | [facility] | [address] | [place] | [phone] | | [facility] | | [address] | | | - LABORATORY | | | | + + + + + Extra Lavender Top Tube (07/24/2018 10:23 PM PDT) + +-------+ + + + | Component | Value | Ref Range | Performed | Pathologist | | | | | At | Signature | + +-------+ + + + | Extra | Done | | [facility] | | | Lavender | | | [facility] | | | Top Tube | | | MEDICAL | | | | | | CENTER - | | | | | | LABORATORY | | + +-------+ + + + + + | Specimen | + + | Blood | + + + + + + + | Performing | Address | City/State/Zipcode | Phone Number | | Organization | | | | + + + + + | [facility] | [address] | [place] | [phone] | | [facility] | | [address] | | | - LABORATORY | | | | + + + + + Culture, Blood (07/24/2018 10:20 PM PDT) + + + + + + | Component | Value | Ref Range | Performed | Pathologist | | | | | At | Signature | + + + + + + | Culture | No growth after 5 days | | [facility] | | | | incubation. | | [facility] | | | | | | [facility] | | | | | | CENTER - | | | | | | LABORATORY | | + + + + + + + + | Specimen | + + | Blood - Peripheral | | blood specimen | | (specimen) | + + + + + + + | Performing | Address | City/State/Zipcode | Phone Number | | Organization | | | | + + + + + | [facility] | [address] | [place] | [phone] | | [facility] | | [address] | | | - LABORATORY | | | | + + + + + Procalcitonin (07/24/2018 10:20 PM PDT) + + + + + + | Component | Value | Ref Range | Performed | Pathologist | | | | | At | Signature | + + + + + + | Procalciton | 0.16 | <=0.50 ng/mL | [facility] | | | in | | | [facility] | | | | | | [facility] | | | | | | CENTER - | | | | | | LABORATORY | | + + + + + + | Comment | Comment: < 0.50 | | [facility] | | | | ng/mL:Procalcitonin | | [facility] | | | | levels below 0.50 ng/mL | | MEDICAL | | | | on the first day of | | CENTER - | | | | admission represents a | | LABORATORY | | | | low risk for progression | | | | | | to severe sepsis and/or | | | | | | septic shock, however | | | | | | these do not exclude an | | | | | | infection, because | | | | | | localized infections | | | | | | (without systemic signs) | | | | | | may also be associated | | | | | | with such low levels. | | | | | | > 2.00 | | | | | | ng/mL:Procalcitonin | | | | | | levels above 2.00 ng/mL | | | | | | on the first day of | | | | | | admission represents a | | | | | | high risk for | | | | | | progression to severe | | | | | | sepsis and/or septic | | | | | | shock. If the | | | | | | procalcitonin | | | | | | measurement is performed | | | | | | shortly after the | | | | | | systemic infection | | | | | | process has started | | | | | | (usually less than 6 | | | | | | hours), these values may | | | | | | still be low. As | | | | | | various non-infectious | | | | | | conditions are known to | | | | | | induce procalcitonin as | | | | | | well, procalcitonin | | | | | | levels between 0.50 | | | | | | ng/mL and 2.00 ng/mL | | | | | | should be reviewed | | | | | | carefully to take into | | | | | | account the specific | | | | | | clinical background and | | | | | | condition(s) of the | | | | | | individual patient. | | | | + + + + + + + + | Specimen | + + | Blood | + + + + + + + | Performing | Address | City/State/Zipcode | Phone Number | | Organization | | | | + + + + + | [facility] | [address] | [place] | [phone] | | [facility] | | [address] | | | - LABORATORY | | | | + + + + + Lactic Acid (07/24/2018 10:20 PM PDT) + +-------+ + + + | Component | Value | Ref Range | Performed | Pathologist | | | | | At | Signature | + +-------+ + + + | Lactate | 1.1 | 0.4 - 2.0 | [facility] | | | | | mmol/L | [facility] | | | | | | [facility] | | | | | | CENTER - | | | | | | LABORATORY | | + +-------+ + + + + + | Specimen | + + | Blood | + + + + + + + | Performing | Address | City/State/Zipcode | Phone Number | | Organization | | | | + + + + + | [facility] | [address] | [place] | [phone] | | [facility] | | [address] | | | - LABORATORY | | | | + + + + + Basic Metabolic Panel (07/24/2018 10:20 PM PDT) + + + + + + | Component | Value | Ref Range | Performed | Pathologist | | | | | At | Signature | + + + + + + | Na | 136 | 136 - 145 | [facility] | | | | | mmol/L | [facility] | | | | | | MEDICAL | | | | | | CENTER - | | | | | | LABORATORY | | + + + + + + | K | 4.1 | 3.4 - 5.1 | [facility] | | | | | mmol/L | [facility] | | | | | | [facility] | | | | | | CENTER - | | | | | | LABORATORY | | + + + + + + | Cl | 107 | 98 - 107 mmol/L | [facility] | | | | | | [facility] | | | | | | [facility] | | | | | | CENTER - | | | | | | LABORATORY | | + + + + + + | CO2 | 26 | 20 - 31 mmol/L | [facility] | | | | | | [facility] | | | | | | [facility] | | | | | | CENTER - | | | | | | LABORATORY | | + + + + + + | Anion Gap | 3 | 3 - 16 mmol/L | [facility] | | | | | | [facility] | | | | | | [facility] | | | | | | CENTER - | | | | | | LABORATORY | | + + + + + + | Glucose | 152 (H) | 60 - 106 mg/dL | [facility] | | | | | | [facility] | | | | | | [facility] | | | | | | CENTER - | | | | | | LABORATORY | | + + + + + + | BUN | 33 (H) | 9 - 23 mg/dL | [facility] | | | | | | [facility] | | | | | | [facility] | | | | | | CENTER - | | | | | | LABORATORY | | + + + + + + | Creatinine | 2.00 (H) | 0.70 - 1.30 | [facility] | | | | | mg/dL | [facility] | | | | | | MEDICAL | | | | | | CENTER - | | | | | | LABORATORY | | + + + + + + | eGFR if not | 32 (L)Comment: | >=60 | [place] | | | | GLOMERULAR FILTRATION | mL/min/1.73m2 | [facility] | | | [place] | RATE,ESTIMATED | | MEDICAL | | | | mL/min/1.72e1Frnr than | | CENTER - | | | | 60 Chronic kidney | | LABORATORY | | | | disease,if found over [...] + | Calcium | 8.1 (L) | 8.7 - 10.4 | [facility] | | | | | mg/dL | [facility] | | | | | | [facility] | | | | | | CENTER - | | | | | | LABORATORY | | + + + + + + | BUN/Creatin | 16.5 | | [facility] | | | ine Ratio | | | [facility] | | | | | | [facility] | | | | | | CENTER - | | | | | | LABORATORY | | + + + + + + + + | Specimen | + + | Blood | + + + + + + + | Performing | Address | City/State/Zipcode | Phone Number | | Organization | | | | + + + + + | [facility] | [address] | [place] | [phone] | | [facility] | | [address] | | | - LABORATORY | | | | + + + + + XR Chest AP Portable (07/24/2018 11:45 AM PDT) + + | Specimen [...] +---------+ + + XR Chest AP Portable (07/24/2018 11:40 AM [...] + + CT Head wo Contrast (07/24/2018 11:35 AM [...] + | Diagnosis | + + | Septic shock (HCC) | + + | Acute respiratory failure with hypoxia (HCC) Acute respiratory failure | + + | HCAP (healthcare-associated pneumonia) Pneumonia, organism unspecified | + + | Acute renal failure, unspecified acute renal failure type (HCC) | + + | Type 2 diabetes mellitus with diabetic polyneuropathy, 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) | + + | Panlobular emphysema (HCC) Other emphysema | + + | Multilevel degenerative disc disease Degeneration of intervertebral disc, site | | unspecified | + + documented in this encounter [...] Shortness of Breath, | | | Starting 07/25/18 at 0914, RT | | | will administer., | | + +---+ | | | + +---+ | amLODIPine (NORVASC) tablet 10 | | | mg 10 mg, Oral, DAILY, First | | | dose (after last modification) on | | | 07/28/18 at 0900 | | + +---+ | | | + +---+ + +-------+ +------+---+---+ | amLODIPine (NORVASC) tablet 5 | Given | 07/28/19 | 5 mg | | | | mg 5 mg, Oral, DAILY, First dose | | 19 10:23 | | | | | on 07/26/18 at 1200 | | AM PDT | | | | + +-------+ +------+---+---+ +-------+ +------+---+---+ | Given | 07/27/19 | 5 mg | | | | | 19 12:25 | | | | | | PM PDT | | | | +-------+ +------+---+---+ +---+---+ | | | +---+---+ + +-------+ +--------+---+---+ | aspirin tablet 325 mg 325 mg, | Given | 07/28/19 | 325 mg | | | | Oral, EVERY MORNING, First dose | | 19 10:22 | | | | | on 07/25/18 at 0900 | | AM PDT | | | | + +-------+ +--------+---+---+ +-------+ +--------+---+---+ | Given | 07/27/19 | 325 mg | | | | | 19 10:09 | | | | | | AM PDT | | | | +-------+ +--------+---+---+ | Given | 07/26/19 | 325 mg | | | | | 19 8:54 | | | | | | AM PDT | | | | +-------+ +--------+---+---+ +---+---+ | | | +---+---+ + +-------+ +-------+---+---+ | atorvaSTATin (LIPITOR) tablet | Given | 07/28/19 | 10 mg | | | | 10 mg 10 mg, Oral, EVERY | | 19 10:23 | | | | | MORNING, First dose on Sat | | AM PDT | | | | | 07/25/18 at 0900 | | | | | | + +-------+ +-------+---+---+ +-------+ +-------+---+---+ | Given | 07/27/19 | 10 mg | | | | | 19 10:10 | | | | | | AM PDT | | | | +-------+ +-------+---+---+ | Given | 07/26/19 | 10 mg | | | | | 19 8:54 | | | | | | AM PDT | | | | +-------+ +-------+---+---+ +---+---+ | | | +---+---+ + +---------+ +-----+-------+---+ | cefepime (MAXIPIME) 2 g in | New Bag | 07/25/19 | 2 g | 100 | | | sodium chloride 0.9% 50 mL IVPB | | 19 11:41 | | mL/hr | | | 2 g, Intravenous, Administer over | | PM PDT | | | | | 30 Minutes, NIGHTLY, First dose | | | | | | | on Fri07/24/18 at 2215, | | | | | | | Pharmacist may adjust Activate | | | | | | | system and mix before use., | | | | | | | Indications: | | | | | | | Healthcare-Associated Pneumonia | | | | | | + +---------+ +-----+-------+---+ +---+---+ | | | +---+---+ + +---------+ +-----+-------+---+ | cefepime (MAXIPIME) 2 g in | New Bag | 07/28/19 | 2 g | 100 | | | sodium chloride 0.9% 50 mL IVPB | | 19 8:00 | | mL/hr | | | 2 g, Intravenous, Administer over | | AM PDT | | | | | 30 Minutes, EVERY 12 HOURS (2 | | | | | | | times per day), First dose (after | | | | | | | last modification) on Sat | | | | | | | 07/25/18 at 0930, Pharmacist may | | | | | | | adjust Activate system and mix | | | | | | | before use., Indications: | | | | | | | Healthcare-Associated Pneumonia | | | | | | + +---------+ +-----+-------+---+ +---------+ +-----+-------+---+ | New Bag | 07/27/19 | 2 g | 100 | | | | 19 8:57 | | mL/hr | | | | PM PDT | | | | +---------+ +-----+-------+---+ | New Bag | 07/27/19 | 2 g | 100 | | | | 19 10:19 | | mL/hr | | | | AM PDT | | | | +---------+ +-----+-------+---+ +---+---+ | | | +---+---+ + +-------+ +--------+---+---+ | cholecalciferol (VITAMIN D-3) | Given | 07/28/19 | 2,000 | | | | tablet 2,000 Units 2,000 Units, | | 19 10:23 | Units | | | | Oral, EVERY MORNING, First dose | | AM PDT | | | | | on 07/25/18 at 0900 | | | | | | + +-------+ +--------+---+---+ +-------+ +--------+---+---+ | Given | 07/27/19 | 2,000 | | | | | 19 10:09 | Units | | | | | AM PDT | | | | +-------+ +--------+---+---+ | Given | 07/26/19 | 2,000 | | | | | 19 8:54 | Units | | | | | AM PDT | | | | +-------+ +--------+---+---+ +---+---+ | | | +---+---+ + +-------+ +-------+---+---+ | clopidogrel (PLAVIX) tablet 75 | Given | 07/28/19 | 75 mg | | | | mg 75 mg, Oral, EVERY MORNING, | | 19 10:23 | | | | | First dose on 07/25/18 at 0900 | | AM PDT | | | | + +-------+ +-------+---+---+ +-------+ +-------+---+---+ | Given | 07/27/19 | 75 mg | | | | | 19 10:09 | | | | | | AM PDT | | | | +-------+ +-------+---+---+ | Given | 07/26/19 | 75 mg | | | | | 19 8:54 | | | | | | AM PDT | | | | +-------+ +-------+---+---+ +---+---+ | | | +---+---+ + +-------+ +--------+---+---+ | cyanocobalamin (VITAMIN B-12) | Given | 07/28/19 | 1,000 | | | | tablet 1,000 mcg 1,000 mcg, | | 19 10:23 | mcg | | | | Oral, EVERY MORNING, First dose | | AM PDT | | | | | on 07/25/18 at 0900 | | | | | | + +-------+ +--------+---+---+ +-------+ +--------+---+---+ | Given | 07/27/19 | 1,000 | | | | | 19 10:09 | mcg | | | | | AM PDT | | | | +-------+ +--------+---+---+ | Given | 07/26/19 | 1,000 | | | | | 19 8:54 | mcg | | | | | AM PDT | | | | +-------+ +--------+---+---+ + +---+ | | | + +---+ | dextrose 10% (D10W) infusion | | | at 50 mL/hr, Intravenous, | | | CONTINUOUS PRN, hypoglycemia, | | | Starting Fri07/24/18 at 2152, | | | Start infusion if unable to | | | maintain blood glucose greater | | | than 70 mg/dL after two rounds of | | | hypoglycemia treatment. Recheck | | | blood glucose 30 minutes after | | | starting D10W then at least | | | hourly and PRN until it is | | | discontinued. Call provider to | | | discuss parameters for D10W | | | discontinuation., | | + +---+ | | | + +---+ | dextrose 50% injection 12.5-25 | | | g 12.5-25 g, Intravenous, PRN, | | | Low Blood Sugar, Starting Fri | | | 07/24/18 at 2152, For blood | | | glucose 50-69 mg/dl - give 12.5 g | | | For blood glucose less than 50 | | | mg/dl - give 25 g, | | + +---+ | | | + +---+ + +-------+ +-------+---+---+ | DULoxetine (CYMBALTA) DR | Given | 07/28/19 | 60 mg | | | | capsule 60 mg 60 mg, Oral, EVERY | | 19 10:22 | | | | | MORNING, First dose on Sat | | AM PDT | | | | | 07/25/18 at 0900, Do not open | | | | | | | capsule., | | | | | | + +-------+ +-------+---+---+ +-------+ +-------+---+---+ | Given | 07/27/19 | 60 mg | | | | | 19 10:10 | | | | | | AM PDT | | | | +-------+ +-------+---+---+ | Given | 07/26/19 | 60 mg | | | | | 19 8:54 | | | | | | AM PDT | | | | +-------+ +-------+---+---+ +---+---+ | | | +---+---+ + +-------+ +--------+---+ + | heparin 5,000 units/mL | Given | 07/28/19 | 5,000 | | Abdomen- | | injection 5,000 Units 5,000 | | 19 10:24 | Units | | LLQ | | Units, Subcutaneous, EVERY 12 | | AM PDT | | | | | HOURS (2 times per day), First | | | | | | | dose on 07/25/18 at 0900 | | | | | | + +-------+ +--------+---+ + +-------+ +--------+---+ + | Given | 07/27/19 | 5,000 | | Abdomen- | | | 19 8:57 | Units | | LLQ | | | PM PDT | | | | +-------+ +--------+---+ + | Given | 07/27/19 | 5,000 | | Abdomen- | | | 19 10:08 | Units | | RLQ | | | AM PDT | | | | +-------+ +--------+---+ + +---+---+ | | | +---+---+ + +-------+ + +---+ + | insulin glargine (LANTUS | Given | 07/26/19 | 10 Units | | Abdomen- | | SOLOSTAR) injection (pen) 10 | | 19 8:48 | | | RUQ | | Units 10 Units, Subcutaneous, | | PM PDT | | | | | NIGHTLY, First dose on Fri | | | | | | | 07/24/18 at 2215, If NPO: Give | | | | | | | dose as ordered. | | | | | | + +-------+ + +---+ + +-------+ + +---+ + | Given | 07/25/19 | 10 Units | | Arm-Righ | | | 19 11:25 | | | t Upper | | | PM PDT | | | | +-------+ + +---+ + +---+---+ | | | +---+---+ + +-------+ + +---+ + | insulin glargine (LANTUS | Given | 07/27/19 | 18 Units | | Arm-Left | | SOLOSTAR) injection (pen) 18 | | 19 9:20 | | | Upper | | Units 18 Units, Subcutaneous, | | PM PDT | | | | | NIGHTLY, First dose (after last | | | | | | | modification) on 07/26/18 at | | | | | | | 2100, If NPO: Give dose as | | | | | | | ordered. | | | | | | + +-------+ + +---+ + +---+---+ | | | +---+---+ + +-------+ +---------+---+ + | insulin lispro (humaLOG | Given | 07/26/19 | 1 Units | | Abdomen- | | KWIKPEN) injection (pen) 0-6 | | 19 12:07 | | | LLQ | | Units 0-6 Units, Subcutaneous, 4 | | PM PDT | | | | | TIMES DAILY WITH MEALS & | | | | | | | NIGHTLY, First dose on Fri | | | | | | | 4/19/19 at 2215, CORRECTION | | | | | | [...] | | | | | NPO, Daytime [phone] Use NIGHT | | | | | | | DOSE for doses scheduled: | | | | | | | HS, 3AM, Nighttime [phone] If | | | | | | | the BG is not checked before the | | | | | | | patient starts eating, do not | | | | | | | give correction insulin. If HS | | | | | | | insulin given, check blood | | | | | | | glucose at 3AM., | | | | | | + +-------+ +---------+---+ + +---+---+ | | | +---+---+ + +-------+ +---------+---+---+ | levothyroxine (SYNTHROID) | Given | 07/28/19 | 225 mcg | | | | tablet 225 mcg 225 mcg, Oral, | | 19 6:20 | | | | | DAILY BEFORE BREAKFAST, First | | AM PDT | | | | | dose on 07/25/18 at 0700, Give | | | | | | | before breakfast., | | | | | | + +-------+ +---------+---+---+ +-------+ +---------+---+---+ | Given | 07/27/19 | 225 mcg | | | | | 19 6:16 | | | | | | AM PDT | | | | +-------+ +---------+---+---+ | Given | 07/26/19 | 225 mcg | | | | | 19 6:22 | | | | | | AM PDT | | | | +-------+ +---------+---+---+ +---+---+ | | | +---+---+ + +-------+ +---+---+---+ | lidocaine (XYLOCAINE) 2% jelly | Given | 07/25/19 | | | | | (uro-jet) Urethral, ONCE, Fri | | 19 11:13 | | | | | 07/24/18 at 2230, For 1 dose | | PM PDT | | | | + +-------+ +---+---+---+ +---+---+ | | | +---+---+ + +---------+ +-----+ +---+ | magnesium sulfate 2 g/50 mL | New Bag | 07/26/19 | 2 g | 25 mL/hr | | | IVPB 2 g 2 g, Intravenous, | | 19 9:05 | | | | | Administer over 120 Minutes, | | AM PDT | | | | | ONCE, 07/25/18 at 0915, For 1 | | | | | | | dose, Maximum recommended | | | | | | | infusion rate = 1 gram/hour., | | | | | | + +---------+ +-----+ +---+ +---+---+ | | | +---+---+ + +---------+ +-----+ +---+ | magnesium sulfate 2 g/50 mL | New Bag | 07/28/19 | 2 g | 25 mL/hr | | | IVPB 2 g 2 g, Intravenous, | | 19 8:59 | | | | | Administer over 120 Minutes, | | AM PDT | | | | | ONCE, 07/27/18 at 0800, For 1 | | | | | | | dose, Maximum recommended | | | | | | | infusion rate = 1 gram/hour., | | | | | | + +---------+ +-----+ +---+ +---+---+ | | | +---+---+ + +---------+ +---------+-------+---+ | norepinephrine in saline | New Bag | 07/25/19 | 1 | 3.8 | | | (LEVOPHED) 16 mcg/mL infusion | | 19 9:59 | mcg/min | mL/hr | | | 1-30 mcg/min (3.75-112.5 mL/hr, | | PM PDT | | | | | rounded to 3.8-112.5 mL/hr), at | | | | | | | 3.8-112.5 mL/hr, Intravenous, | | | | | | | TITRATED, Starting 07/24/18 at | | | | | | | 2215, Titration Instruction: See | | | | | | | below, Goal: SBP greater than | | | | | | | 90, Initial dose: 3 mcg/min., | | | [...] +---+---+ | | | +---+---+ + +-------+ +------+---+---+ | ondansetron (ZOFRAN) injection | Given | 07/27/19 | 4 mg | | | | 4 mg 4 mg, Intravenous, EVERY 6 | | 19 3:33 | | | | | HOURS PRN, Nausea, Vomiting, | | AM PDT | | | | | Starting 07/24/18 at 2152, | | | | | | | First line agent, | | | | | | + +-------+ +------+---+---+ +---+---+ | | | +---+---+ + +-------+ +-------+---+---+ | pantoprazole (PROTONIX) DR | Given | 07/28/19 | 40 mg | | | | tablet 40 mg 40 mg, Oral, DAILY | | 19 6:20 | | | | | BEFORE BREAKFAST, First dose on | | AM PDT | | | | | 07/25/18 at 0700, Indication: | | | | | | | GERD | | | | | | + +-------+ +-------+---+---+ +-------+ +-------+---+---+ | Given | 07/27/19 | 40 mg | | | | | 19 6:16 | | | | | | AM PDT | | | | +-------+ +-------+---+---+ | Given | 07/26/19 | 40 mg | | | | | 19 6:22 | | | | | | AM PDT | | | | +-------+ +-------+---+---+ + +---+ | | | + +---+ | pneumococcal (PREVNAR 13) | | | vaccine injection 0.5 mL 0.5 mL, | | | Intramuscular, ONCE PRN, CONTACT | | | DOCTOR FOR AUTHORIZATION BEFORE | | | GIVING PREVNAR. TO BE GIVEN ONCE | | | PATIENT IS STABLE. GIVE RIGHT | | | BEFORE DISCHARGE, IF APPROPIATE, | | | Starting 07/26/18 at 0900, For | | | 1 dose, AUTHORIZATION BEFORE | | | GIVING PREVNAR. TO BE GIVEN ONCE | | | PATIENT IS STABLE. GIVE RIGHT | | | BEFORE DISCHARGE, IF APPROPIATE, | | | , Keep in refrigerator. Give | | | patient education information., | | + +---+ | | | + +---+ + +---------+ +---+-------+---+ | sodium chloride 0.9% (NS) | New Bag | 07/25/19 | | 100 | | | infusion at 100 mL/hr, | | 19 11:31 | | mL/hr | | | Intravenous, CONTINUOUS, Starting | | PM PDT | | | | | 07/24/18 at 2215 | | | | | | + +---------+ +---+-------+---+ +---+---+ | | | +---+---+ + +---------+ +-----+--------+---+ | vancomycin 1 g in sodium | New Bag | 07/26/19 | 1 g | 166.7 | | | chloride 0.9% 250 mL IVPB 1 g, | | 19 12:45 | | mL/hr | | | Intravenous, Administer over 90 | | PM PDT | | | | | Minutes, EVERY 24 HOURS INTERVAL, | | | | | | | First dose on 07/25/18 at | | | | | | | 1200, Activate system and mix | | | | | | | before use., Indications: | | | | | | | pneumonia | | | | | | + +---------+ +-----+--------+---+ +---+---+ | | | +---+---+ documented in this encounter Additional Health Concerns + + + + | Infection | Noted Time | Resolved Time | + + + + | Methicillin-resistant Staphylococcus aureus | 07/20/2018 4:00 PM | | | | PDT | | + + + + documented as of this encounter
--- OUTSIDE RECORDS SUMMARY | ~2019-02-17 | XMS | Encounter Summary ---
Demographics + + + | Address | [address] | | | [place] [address] | + + + | Home Phone [...] Providers + +------+ + | Care Inside Sales Assistant Name | Role | Phone | [...] | DO [address] [place] | | | | | [facility] | [place], [place] | | | | [address] [place], | [address] | | | | | [place] [address] | [phone] | | | | | [phone] | | | +--------+ + + + [...] [place] | | | | | | [address] | | | | | | [phone] | | | | | | | | +--------+---------+ + + + | 02/26/ | Office | Urology | Lillie Fowler | | | 2018 | Visit | | LILLIE Lopez [address] | | | | | | [address] | | | | | | [place], [place] | | | | | | [address] | | | | | | [phone] | | | | | | | | +--------+---------+ + + + | 03/16/ | Office | Neurology | Theresa, | | | 2018 | Visit | | SHONDA Mck[address]ney [address] | | | | | [address] [place], | | | | | | [place] [address] | | | | | | [phone] | | | | | | | | +--------+---------+ + + + | 04/12/ | Office | Primary Care | Massimo Ramos | | | 2019 | Visit | | MD [address] | | | | | | [place] | | | | | | [address] | | | | | | | | +--------+---------+ + + + | 10/03/ | Office | Neurology | Fabián Carias MD | | | 2019 | Visit | | [address] | | | | | | [place] | | | | | | [address] | | | | | | | [...] | | | care | | | [employer] | | | | | | | [...] | | | care | | | [employer] | | | | | | | [...] | | | care | | | [employer] | | | | | | | [...] | | | care | | | [employer] | | | | | | | linical | + +--------+ +---+-----+ + + + | Note: Pt will | | check CBG's daily x1 | | Pt will take Lantis as | | prescribed | + + documented as of this encounter Visit Diagnoses Not on filedocumented in this encounter"
--- OUTSIDE RECORDS SUMMARY | ~2019-02-17 | XMS | Encounter Summary ---
Demographics + + + | Address | [address] | | | [place] [address] | + + + | Home Phone [...] Team Providers + +------+ + | Care Farm Management Agent Name | Role | Phone | + +------+ + | Ryan Gutiérrez MD | PCP | | + +------+ + Encounter Details +--------+ + + + + | Date | Type | Department | Care Team | Description | +--------+ + + + + | 09/26/ | Hospital | [facility] | Scott De Oliveira | | | 2016 | Encounter | [facility] | DO [address] | | | | | [address] | [address] | | | | | [address] [place], | [facility], [place] | | | | | [place] [address] | [address] | | | | | [phone] | [phone] | | | | | | | [...] [place] | | | | | | [address] | | | | | | [phone] | | | | | | | | +--------+---------+ + + + | 02/26/ | Office | Urology | Lillie Fowler | | | 2018 | Visit | | [address]IE [address] | | | | | | [address] | | | | | | [place] | | | | | | [address] | | | | | | [phone] | | | | | | | | +--------+---------+ + + + | 03/16/ | Office | Neurology | Theresa, | | | 2018 | Visit | | [address] | | | | | | [address] [place], | | | | | | [place] [address] | | | | | | [phone] | | | | | | | | +--------+---------+ + + + | 04/12/ | Office | Primary Care | Masismo Ramos | | | 2019 | Visit | | MD [address] | | | | | | [address] [place] | | | | | | [address] | | | | | | | | +--------+---------+ + + + | 10/03/ | Office | Neurology | Fabián Carias MD | | | 2019 | Visit | | [address] | | | | | | [place] | | | | | | [address] | | | | | | | [...] | | | care | | | Repair Table Operator-C | | | | | | [...] | | | care | | | Repair Table Operator-C | | | | | | [...] | | | care | | | Repair Table Operator-C | | | | | | [...] | | | care | | | Repair Table Operator-C | | | | | | | linical | + +--------+ +---+-----+ + + + | Note: Pt will | | check CBG's daily x1 | | Pt will take Lantis as | | prescribed | + + documented as of this encounter Visit Diagnoses Not on filedocumented in this encounter"
--- OUTSIDE RECORDS SUMMARY | ~2019-02-17 | XMS | Encounter Summary ---
Demographics + + + | Address | [address] | | | [place] [address] | + + + | Home Phone | | + + + | Preferred Language | Unknown | + + + | Marital Status | | + + + | Presybeterian Affiliation | 1025 | + + + | Race | Unknown | + + + | Ethnic Group | Unknown | + + + Author + + + | Author | [facility] | | | and [place] | + + + | Organization | [facility] | | [...] Providers + +------+ + | Care Ceramic Chemist Name | Role | Phone | + +------+ + | Horacio Silvestre DO | PCP | | + +------+ + Reason for Visit + + + | Reason | Comments | + + + | Follow-up | medicaiton | + + + Encounter Details +--------+---------+ + + + | Date | Type | Department | Care Team | Description | +--------+---------+ + + + | 04/08/ | Office | [facility] | Horacio Silvestre, | Type 2 diabetes | | 2019 | Visit | [facility] | DO [address] | mellitus with | | | | [facility] | [facility], [place] | diabetic | | | [address] [facility], | [address] | polyneuropathy, with | | | | [place] [address] | [phone] | long-term current | | | | [phone] | | use of insulin (HCC) | | | | | | (Primary Dx); | | | | | | Otalgia of both | | | | | | ears; Primary | | | | | | osteoarthritis | | | | | | involving multiple | | | | | | joints; Multilevel | | | | | | degenerative disc | | | | | | disease; Insomnia | | | | | | secondary to chronic | | | | | | pain; [facility] | | | | | | current use of | | | | | | opiate analgesic; | | | | | | 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 | | | | | | use of non-steroidal | | | | | | anti-inflammatories | | | | | | (NSAID) | +--------+---------+ + + + Social History [...] + + + | Blood Pressure | 113/74 | 04/08/2018 10:07 AM | | | | | PST | | + + + + + | Pulse | 76 | 04/08/2018 10:07 AM | | | | | PST | | + + + + + | Temperature | - | - | | + + + + + | Respiratory Rate | 17 | 04/08/2018 10:07 AM | | | | | PST | | + + + + + | Oxygen Saturation | 97% | 04/08/2018 10:07 AM | | | | | PST | | + + + + + | Inhaled Oxygen | - | - | | | Concentration | | | | + + + + + | Weight | 93.4 kg (206 lb) | 04/08/2018 10:07 AM | | | | | PST | | + + + + + | Height | 167.6 cm (5' 5.98") | 04/08/2018 10:07 AM | | | | | PST | | + + + + + | Body Mass Index | 33.27 | 04/08/2018 10:07 AM | | | | | PST [...] as of this encounter Progress Notes Horacio Silvestre, - 04/08/2018 10:30 AM PSTFormatting of this note might be different f rom the original. Patient ID: Geraldo Mcfadden is a 77 y.o. year old male Chief Complaint: Chief Complaint Patient presents with Follow-up medicaiton Assessment and Plan: 1. Otalgia of both ears No physical exam findings to explain. Will observe for change 2. Type 2 diabetes mellitus with diabetic polyneuropathy, with long-term current use of ins ulin (HCC) Rx lyrica 3. Primary osteoarthritis involving multiple joints Of hands and hips b/l - oxyCODONE 10 MG TABS; Take 1 tablet by mouth 3 times daily as needed for Pain. Dispense: 84 tablet; Refill: 0 - naproxen (NAPROSYN) 500 mg tablet; Take 1 tablet by mouth 2 times daily (with breakfast & dinner). Dispense: 180 tablet; Refill: 3 4. Multilevel degenerative disc disease Of thoracic and lumbar spine - oxyCODONE 10 MG TABS; Take 1 tablet by mouth 3 times daily as needed for Pain. Dispense: 84 tablet; Refill: 0 - naproxen (NAPROSYN) 500 mg tablet; Take 1 tablet by mouth 2 times daily (with breakfast & dinner). Dispense: 180 tablet; Refill: 3 - pregabalin (LYRICA) 300 MG capsule; Take 1 capsule by mouth 2 times daily. Dispense: 180 capsule; Refill: 1 5. Insomnia secondary to chronic pain - traZODone (DESYREL) 50 mg tablet; Take 2 tablets by mouth nightly. 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 Dispense: 84 tablet; Refill: 0 7. [facility]FP current use of non-steroidal anti-inflammatories (NSAID) - naproxen (NAPROSYN) 500 mg tablet; Take 1 tablet by mouth 2 times daily (with breakfast & dinner). Dispense: 180 tablet; Refill: 3 Subjective: Otalgia There is pain in both ears. This is a new problem. The current episode started 1 to 4 weeks ago. The problem occurs constantly. The problem has been unchanged. The pain is mild. Perti nent negatives include no coughing or headaches. He has tried nothing for the symptoms. Ther e is no history of a chronic ear infection. Hand Pain The pain is present in the back, left hand and right hand. This is a chronic problem. The c urrent episode started more than 1 year ago. There has been no history of extremity trauma. The problem occurs constantly. The problem has been unchanged. The quality of the pain is de scribed as burning. The pain is moderate. Associated symptoms include joint swelling and sti ffness. He has tried NSAIDS for the symptoms. The treatment provided mild relief. His past m edical history is significant for osteoarthritis. Allergies: Allergies Allergen [...] CATARACT REMOVAL; Surgeon: Tay Kern MD; Location: [facility]ul Azul [facility] MOHS SURGERY [...] Take 10 mg by mouth every morning. colchicine 0.6 mg tablet Take 1 tablet [...] visit. Review of Systems HENT: Positive for ear pain. Respiratory: Negative for cough. Musculoskeletal: Positive for stiffness. Neurological: Negative for headaches. Objective: Vitals: BP 113/74 | Pulse 76 | Resp 17 | Ht 1.676 m (5' 5.98") | Wt 93.4 kg (206 lb) | SpO2 97 % | BMI 33.27 kg/m Physical Exam Constitutional: He appears well-developed and well-nourished. No distress. HENT: Head: Normocephalic and atraumatic. Right Ear: External ear normal. Left Ear: External ear normal. Cardiovascular: Normal rate, regular rhythm and normal heart sounds. Exam reveals no frict ion rub. No murmur heard. Pulmonary/Chest: Effort normal and breath sounds normal. No respiratory distress. He has no wheezes. He has no rales. Musculoskeletal: Thoracic back: He exhibits tenderness, bony tenderness, pain and spasm. He exhibits no rmal range of motion, no swelling, no edema, no deformity, no laceration and normal pulse. Lumbar back: He exhibits tenderness, bony tenderness, pain and spasm. He exhibits norm al range of motion, no swelling, no edema, no deformity, no laceration and normal pulse. Neurological: He displays no tremor. He displays no seizure activity. Coordination and gait normal. Vitals reviewed. This note was transcribed using [...] [place] | | | | | | [address] | | | | | | [phone] | | | | | | | | +--------+---------+ + + + | 02/26/ | Office | Urology | Lillie Fowler | | | 2019 | Visit | | [address]IE [address] | | | | | | [address] | | | | | | [place] | | | | | | [address] | | | | | | [phone] | | | | | | | | +--------+---------+ + + + | 03/16/ | Office | Neurology | Theresa, | | | 2018 | Visit | | [address] | | | | | | [facility] [address] [place], | | | | | | [place] [address] | | | | | | [phone] | | | | | | | | +--------+---------+ + + + | 04/12/ | Office | Primary Care | Massimo Ramos | | | 2019 | Visit | | MD [address] | | | | | | [place] | | | | | | [address] | | | | | | | | +--------+---------+ + + + | 10/03/ | Office | Neurology | Fabián Carias MD | | | 2019 | Visit | | [address] | | | | | | [place] | | | | | | [address] | | | | | | | [...] | | | care | | | Cooker Casing-C | | | | | | | [...] | | | care | | | Cooker Casing-C | | | | | | | [...] | | | care | | | Cooker Casing-C | | | | | | | [...] | | | care | | | Cooker Casing-C | | | | | | | [...] (HCC) - Primary | + + | Otalgia of both ears Otalgia, unspecified | + + | Primary osteoarthritis involving multiple joints | + + | Multilevel degenerative disc disease Degeneration of intervertebral disc, site | | unspecified | + + | Insomnia secondary to chronic pain Other chronic pain | + + | 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
--- OUTSIDE RECORDS SUMMARY | ~2019-02-17 | XMS | Encounter Summary ---
Demographics + + + | Address | [address] | | | [place] [address] | + + + | Home Phone [...] Team Providers + +------+ + | Care Gear Hobber Operator Name | Role | Phone | [...] (Request to | | 2017 | | [facility] | [address] | Change Providers) | | | | [facility] | [facility], [place] | | | | | [address] [place] [address], | [address] | | | | | [place] [address] | [phone] | | | | | [phone] | | | +--------+ + + + [...] [place] | | | | | | [address] | | | | | | [phone] | | | | | | | | +--------+---------+ + + + | 02/26/ | Office | Urology | Lillie Fowler | | | 2018 | Visit | | [address] | | | | | | [address] | | | | | | [place], [place] | | | | | | [address] | | | | | | [phone] | | | | | | | | +--------+---------+ + + + | 03/16/ | Office | Neurology | Theresa, | | | 2018 | Visit | | [address] | | | | | [address] [place], | | | | | | [place] [address] | | | | | | [phone] | | | | | | | | +--------+---------+ + + + | 04/12/ | Office | Primary Care | Massimo Ramos | | | 2019 | Visit | | MD Fer [address] | | | | | | [place] | | | | | | [address] | | | | | | | | +--------+---------+ + + + | 10/03/ | Office | Neurology | Fabián Carias MD | | | 2019 | Visit | | [address] | | | | | | [place] | | | | | | [address] | | | | | | | [...] | | | care | | | Slack Line Yarder-C | | | | | | | [...] | | | care | | | Slack Line Yarder-C | | | | | | | [...] | | | care | | | Slack Line Yarder-C | | | | | | | [...] yle | n of | | | Charilne Dos Santos, | | | | complex | | | Case | | | | care | | | Slack Line Yarder-C | | | | | | | linical | + +--------+ +---+-----+ + + + | Note: Pt will | | check CBG's daily x1 | | Pt will take Lantis as | | prescribed | + + documented as of this encounter Visit Diagnoses Not on filedocumented in this encounter"
--- OUTSIDE RECORDS SUMMARY | ~2019-02-17 | XMS | Encounter Summary ---
Demographics + + + | Address | [address] | | | [place] [address] | + + + | Home Phone [...] Team Providers + +------+ + | Care Python Engineer Name | Role | Phone | + +------+ + | Ryan Gutiérrez MD | PCP | | + +------+ + Encounter Details +--------+ + + + + | Date | Type | Department | Care Team | Description | +--------+ + + + + | 01/31/ | [facility] | Horacio Silvestre, | | | 2016 | Encounter | [facility] | DO [address] [place] | | | | | [facility] [address] | [place], [place] | | | | | [address] [facility], | [address] | | | | | [place] [address] | [phone] | | | | | [phone] | | | +--------+ + + + [...] [place] | | | | | | [address] | | | | | | [phone] | | | | | | | | +--------+---------+ + + + | 02/26/ | Office | Urology | Lillie Fowler | | | 2018 | Visit | | [address]IE [address] | | | | | | [address] | | | | | | [place] | | | | | | [address] | | | | | | [phone] | | | | | | | | +--------+---------+ + + + | 03/16/ | Office | Neurology | Theresa, | | | 2018 | Visit | | [address] | | | | | [address] [place], | | | | | | [place] [address] | | | | | | [phone] | | | | | | | | +--------+---------+ + + + | 04/12/ | Office | Primary Care | Massimo Ramos | | | 2019 | Visit | | MD Fer [address] | | | | | | [place] | | | | | | [address] | | | | | | | | +--------+---------+ + + + | 10/03/ | Office | Neurology | Fabián Carias MD | | | 2019 | Visit | | [address] | | | | | | [place] | | | | | | [address] | | | | | | | [...] | | | care | | | Stevedoring Supervisor-C | | | | | | [...] | | | care | | | Stevedoring Supervisor-C | | | | | | [...] | | | care | | | Stevedoring Supervisor-C | | | | | | [...] | | | care | | | Stevedoring Supervisor-C | | | | | | | linical | + +--------+ +---+-----+ + + + | Note: Pt will | | check CBG's daily x1 | | Pt will take Lantis as | | prescribed | + + documented as of this encounter Visit Diagnoses Not on filedocumented in this encounter"
--- OUTSIDE RECORDS SUMMARY | ~2019-02-17 | XMS | Encounter Summary ---
Demographics + + + | Address | [address] | | | [place] [address] | + + + | Home Phone [...] Team Providers + +------+ + | Care Cathode Builder Name | Role | Phone | + +------+ + | Ryan Gutiérrez MD | PCP | | + +------+ + Encounter Details +--------+ + + + + | Date | Type | Department | Care Team | Description | +--------+ + + + + | 11/28/ | Hospital | [facility] | Scott De Oliveira | | | 2016 | Encounter | [facility] | DO [address] | | | | | [address] [place] | [address] | | | | | [place], [place] | [place], [place] | | | | | [address] | [address] | | | | | [phone] | [phone] | | | | | | | [...] encounter Discharge Summaries Lisa Taylor MD - 11/29/2015 10:21 AM PDT DISCHARGE SUMMARY DATE OF ADMISSION: 11/29/2015 DATE OF DISCHARGE: 12/02/2015 PRIMARY CARE: Ryan Gutiérrez MD. ADMITTING PHYSICIAN: Scott De Oliveira MD. 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 HISTORY OF PRESENT ILLNESS: This is a 75-year-old male who was admitted for ileostomy takedown. He had a history of pe rforated diverticulitis. Ileostomy takedown was done on hospital day #1. Postoperative cou rse was unremarkable with expected return of bowel function. He was discharged home on postop day 3 tolerating regular diet, having fairly loose bowel movement s, having had no fever or wound issues. DISCHARGE PLAN: Plan is made for him to followup with Dr. De Oliveira in one to two weeks. He is given NORCO s cript for pain. Cc: MD Scott Hall MD IF Signed and Approved by: LISA TAYLOR MD 12/03/2015 15:14:00 documented in this encounter Medications at Time [...] [place] | | | | | | [address] | | | | | | [phone] | | | | | | | | +--------+---------+ + + + | 02/26/ | Office | Urology | Lillie Fowler | | | 2019 | Visit | | [address] | | | | | | [address] | | | | | | [place], [place] | | | | | | [address] | | | | | | [phone] | | | | | | | | +--------+---------+ + + + | 03/16/ | Office | Neurology | Theresa, | | | 2018 | Visit | | [address] | | | | | [address] [place], | | | | | | [place] [address] | | | | | | [phone] | | | | | | | | +--------+---------+ + + + | 04/12/ | Office | Primary Care | Massimo Ramos | | | 2019 | Visit | | MD Fer [address] | | | | | | [place] | | | | | | [address] | | | | | | | | +--------+---------+ + + + | 10/03/ | Office | Neurology | Fabián Carias MD | | | 2019 | Visit | | [address] | | | | | | [place] | | | | | | [address] | | | | | | | [...] | | | care | | | Campground Attendant-C | | | | | | [...] | | | care | | | Campground Attendant-C | | | | | | [...] | | | care | | | Campground Attendant-C | | | | | | [...] | | | care | | | Campground Attendant-C | | | | | | [...] + | POC GLUCOSE, | Routin | 12/03/2015 | | Results for this | | [facility]POINT | e | 11:43 AM | | procedure are in the | | | | PDT | | results section. | + +--------+ + + + | POC GLUCOSE, | Routin | 12/03/2015 | | Results for this | | RAPIDPOINT | e | 7:15 AM | | procedure are in the | | | | PDT | | results section. | + +--------+ + + + | POC GLUCOSE, | Routin | 12/01/2015 | | Results for this | | RAPIDPOINT | e | 9:03 PM | | procedure are in the | | | | PDT | | results section. | + +--------+ + + + | POC GLUCOSE, | Routin | 12/01/2015 | | Results for this | | RAPIDPOINT | e | 4:26 PM | | procedure are in the | | | | PDT | | results section. | + +--------+ + + + | POC GLUCOSE, | Routin | 12/01/2015 | | Results for this | | RAPIDPOINT | e | 1:57 PM | | procedure are in the | | | | PDT | | results section. | + +--------+ + + + | POC GLUCOSE, | Routin | 12/01/2015 | | Results for this | | RAPIDPOINT | e | 11:33 AM | | procedure are in the | | | | PDT | | results section. | + +--------+ + + + | POC GLUCOSE, | Routin | 12/01/2015 | | Results for this | | RAPIDPOINT | e | 7:21 AM | | procedure are in the | | | | PDT | | results section. | + +--------+ + + + | POC GLUCOSE, | Routin | 11/30/2015 | | Results for this | | RAPIDPOINT | e | 8:34 PM | | procedure are in the | | | | PDT | | results section. | + +--------+ + + + | POC GLUCOSE, | Routin | 11/30/2015 | | Results for this | | RAPIDPOINT | e | 4:28 PM | | procedure are in the | | | | PDT | | results section. | + +--------+ + + + | POC GLUCOSE, | Routin | 11/30/2015 | | Results for this | | RAPIDPOINT | e | 11:46 AM | | procedure are in the | | | | PDT | | results section. | + +--------+ + + + | POC GLUCOSE, | Routin | 11/30/2015 | | Results for this | | RAPIDPOINT | e | 7:31 AM | | procedure are in the | | | | PDT | | results section. | + +--------+ + + + | POC GLUCOSE, | Routin | 11/29/2015 | | Results for this | | RAPIDPOINT | e | 8:44 PM | | procedure are in the | | | | PDT | | results section. | + +--------+ + + + | POC GLUCOSE, | Routin | 11/29/2015 | | Results for this | | RAPIDPOINT | e | 11:09 AM | | procedure are in the | | | | PDT | | results section. | + +--------+ + + + | HEMOGRAM WITH | Routin | 11/29/2015 | | Results for this | | PLATELETS | e | 5:00 AM | | procedure are in the | | | | PDT | | results section. | + +--------+ + + + | BASIC METABOLIC | Routin | 11/29/2015 | | Results for this | | PANEL | e | 5:00 AM | | procedure are in the | | | | PDT | | results section. | + +--------+ + + + documented in this encounter Results POC Glucose, [facility] (12/03/2015 11:43 AM PDT) + +-------+ + + + [...] + +---------+ + + POC Glucose, [facility] (12/03/2015 7:15 AM PDT) + +-------+ + + + | Component | Value | Ref Range | Performed | Pathologist | | | | | At | Signature | + +-------+ + + + | Glucose, | 127 | 70 - 110 mg/dL | EXTERNAL [...] + +---------+ + + POC Glucose, [facility] (12/01/2015 9:03 PM PDT) + +-------+ + + + [...] + +---------+ + + POC Glucose, [facility] (12/01/2015 4:26 PM PDT) + +-------+ + + + [...] + +---------+ + + POC Glucose, [facility] (12/01/2015 1:57 PM PDT) + +-------+ + + + | Component | Value | Ref Range | Performed | Pathologist | | | | | At | Signature | + +-------+ + + + | Glucose, | 97 | 70 - 110 mg/dL | EXTERNAL [...] + +---------+ + + POC Glucose, [facility] (12/01/2015 11:33 AM PDT) + +-------+ + + + [...] + +---------+ + + POC Glucose, [facility] (12/01/2015 7:21 AM PDT) + +-------+ + + + [...] + +---------+ + + POC Glucose, [facility] (11/30/2015 8:34 PM PDT) + +-------+ + + + | Component | Value | Ref Range | Performed | Pathologist | | | | | At | Signature | + +-------+ + + + | Glucose, | 177 | 70 - 110 mg/dL | EXTERNAL [...] + +---------+ + + POC Glucose, [facility] (11/30/2015 4:28 PM PDT) + +-------+ + + + | Component | Value | Ref Range | Performed | Pathologist | | | | | At | Signature | + +-------+ + + + | Glucose, | 143 | 70 - 110 mg/dL | EXTERNAL [...] + +---------+ + + POC Glucose, [facility] (11/30/2015 11:46 AM PDT) + +-------+ + + + | Component | Value | Ref Range | Performed | Pathologist | | | | | At | Signature | + +-------+ + + + | Glucose, | 130 | 70 - 110 mg/dL | EXTERNAL [...] + +---------+ + + POC Glucose, [facility] (11/30/2015 7:31 AM PDT) + +-------+ + + + | Component | Value | Ref Range | Performed | Pathologist | | | | | At | Signature | + +-------+ + + + | Glucose, | 103 | 70 - 110 mg/dL [...] + +---------+ + + POC Glucose, [facility] (11/29/2015 8:44 PM PDT) + +-------+ + + + | Component | Value | Ref Range | Performed | Pathologist | | | | | At | Signature | + +-------+ + + + | Glucose, | 127 | 70 - 110 mg/dL | EXTERNAL [...] + +---------+ + + POC Glucose, [facility] (11/29/2015 11:09 AM PDT) + +-------+ + + + [...] + +---------+ + + Basic Metabolic Panel (11/29/2015 5:00 AM PDT) + +-------+ + + + [...] +-------+ + + + | Glucose | 123 | 70 - 110 mg/dL | EXTERNAL | | | | | | LAB | | + +-------+ + + + | BUN, Bld | 13 | 5 - 26 mg/dL | EXTERNAL | | | | | | LAB | | + +-------+ + + + | Creatinine | 0.82 | 0.70 - 1.40 | EXTERNAL | | | | | mg/dL | LAB | | + +-------+ + + + | BUN/Creatin | 15.9 | 7.0 - 24.0 | EXTERNAL | [...] + +---------+ + + Hemogram With Platelets (11/29/2015 5:00 AM PDT) + +-------+ + + + | Component | Value | Ref Range | Performed | Pathologist | | | | | At | Signature | + +-------+ + + + | WBC | 11.6 | 4.6 - 10.5 | EXTERNAL | | | | | 1000/mm3 | LAB | | + +-------+ + + + | RBC | 3.86 | 4.36 - 5.83 | EXTERNAL | | | | | mil/mm3 | LAB | | + +-------+ + + + | HGB, | 11.8 | 13.1 - 17.4 | EXTERNAL | | | External | | g/dL | LAB | | + +-------+ + + + | HCT, | 35.4 | 39.0 - 51.9 % | EXTERNAL [...] +-------+ + + + | RDW-CV | 13.8 | <=17.0 % | EXTERNAL | | | | | | LAB | | + +-------+ + + + | Platelet | 187 | 150 - 450 | EXTERNAL | | | Count | | 1000/mm3 | LAB | | | Plasma | | | | | + +-------+ + + + | MPV | 10.6 | 9.4 - 12.4 FL | EXTERNAL | | | | | | LAB | | + +-------+ + + + | RDW-SD | 46.5 | 34.0 - 57.0 fL | EXTERNAL [...]
--- OUTSIDE RECORDS SUMMARY | ~2019-02-17 | XMS | Encounter Summary ---
Demographics + + + | Address | [address] | | | [place] [address] | + + + | Home Phone [...] Team Providers + +------+ + | Care Display Decorator Name | Role | Phone | + [...] + + | 11/25/ | Telephone | [facility] | Horacio Silvestre, | Medication Question | | 2019 | | [facility] | [address] | | | | | [facility] [address] | [facility], [place] | | | | | [address] [place], | [address] | | | | | [place] [address] | [phone] | | | | | [phone] | | | +--------+ + + + [...] [place] | | | | | | [address] | | | | | | [phone] | | | | | | | | +--------+---------+ + + + | 02/26/ | Office | Urology | Lillie Fowler | | | 2018 | Visit | | LILLIE Lopez [address] | | | | | | [address] | | | | | | [place], [place] | | | | | | [address] | | | | | | [phone] | | | | | | | | +--------+---------+ + + + | 03/16/ | Office | Neurology | Theresa, | | | 2019 | Visit | | [address] | | | | | | [address] [place], | | | | | | [place] [address] | | | | | | [phone] | | | | | | | | +--------+---------+ + + + | 04/12/ | Office | Primary Care | Massimo Ramos | | | 2019 | Visit | | MD [address] | | | | | | [place] | | | | | | [address] | | | | | | | | +--------+---------+ + + + | 10/03/ | Office | Neurology | Fabián Carias MD | | | 2019 | Visit | | [address] | | | | | | [place] | | | | | | [address] | | | | | | | [...] | | | care | | | Dinkey Operator Slag-C | | | | | | | [...] | | | care | | | Dinkey Operator Slag-C | | | | | | | [...] | | | care | | | Dinkey Operator Slag-C | | | | | | | [...] | | | care | | | Dinkey Operator Slag-C | | | | | | | [...]
--- OUTSIDE RECORDS SUMMARY | ~2019-02-17 | XMS | Encounter Summary ---
Demographics + + + | Address | [address] | | | [place] [address] | + + + | Home Phone [...] Providers + +------+ + | Care Plastic Duplicator Name | Role | Phone | + +------+ + | Ryan Gutiérrez MD | PCP | | + +------+ + Encounter Details +--------+ + + + + | Date | Type | Department | Care Team | Description | +--------+ + + + + | 12/26/ | Hospital | [facility] | Horacio Silvestre, | | | 2016 | Encounter | [facility] | DO [address] | | | | | [address] | [place], [place] | | | | | [place] | [address] | | | | | [address] | [phone] | | | | | [phone] | | | +--------+ + + + [...] [place] | | | | | | [address] | | | | | | [phone] | | | | | | | | +--------+---------+ + + + | 02/26/ | Office | Urology | Lillie Fowler | | | 2018 | Visit | | LILLIE Lopez [address] | | | | | | [address] | | | | | | [place] | | | | | | [address] | | | | | | [phone] | | | | | | | | +--------+---------+ + + + | 03/16/ | Office | Neurology | Theresa, | | | 2018 | Visit | | [address] | | | | | | [address] [place], | | | | | | [place] [address] | | | | | | [phone] | | | | | | | | +--------+---------+ + + + | 04/12/ | Office | Primary Care | Massimo Ramos | | | 2019 | Visit | | MD [address] | | | | | | [place] | | | | | | [address] | | | | | | | | +--------+---------+ + + + | 10/03/ | Office | Neurology | Fabián Carias MD | | | 2019 | Visit | | [address] | | | | | | [place] | | | | | | [address] | | | | | | | [...] | | | care | | | Travel Insurance Agent-C | | | | | | | [...] | | | care | | | Travel Insurance Agent-C | | | | | | | [...] | | | care | | | Travel Insurance Agent-C | | | | | | | [...] | | | care | | | Travel Insurance Agent-C | | | | | | | [...] + +--------+ + + + | XR LUMBAR SPINE 2 [place] | Routin | 12/27/2015 | | Results for this | | 3 VW | e | 9:49 AM | | procedure are in the | | | | PDT | | results section. | + +--------+ + + + documented in this encounter Results XR Lumbar Spine 2 or 3 Vw (12/27/2015 9:49 AM PDT) + + | Specimen | + + | | + + + + + | Narrative | Performed At | + + + | ORIGINAL LUMBAR SPINE, TWO VIEWS CLINICAL | | | STATEMENT: Lower back pain. COMPARISONS: CT abdomen and pelvis, | | | 10/14/2015. REPORT: Disk space narrowing with endplate spurring | | | and sclerosis is present at all lumbar levels. The vertebral body | | | heights are maintained. The prior CT study demonstrates canal | | | stenosis, L3-4, related to posteriorly projecting endplate osteophyte. | | | Canal narrowing also apparent, L2-3. Mild facet degenerative | | | changes are present, L3-4 bilaterally, best appreciated on the CT | | | study. At L5-S1 on the left mild facet degenerative change present. No | | | lytic or blastic bone lesions are seen and the pedicles appear | | | intact. IMPRESSION: Multilevel disk and facet degenerative | | | changes. Canal narrowing. MRI may provide additional information. | | | Job No.: [id number] Read By: DREW GARZA MD | | | Released By: DREW GARZA MD Date: 12/27/2015 12:47 | | + + + + + | Procedure Note | + + | Adithya Mcneill Results In - 02/12/2017 11:34 PM PST ORIGINAL LUMBAR SPINE, TWO | | VIEWS CLINICAL STATEMENT:Lower back pain. COMPARISONS:CT abdomen and pelvis, 10/14/2015. | | REPORT:Disk space narrowing with endplate spurring and sclerosis is present at all | | lumbar levels. The vertebral body heights are maintained. The prior CT study | | demonstrates canal stenosis, L3-4, related to posteriorly projecting endplate | | osteophyte. Canal narrowing also apparent, L2-3. Mild facet degenerative changes are | | present, L3-4 bilaterally, best appreciated on the CT study. At L5-S1 on the left mild | | facet degenerative change present. No lytic or blastic bone lesions are seen and the | | pedicles appear intact. IMPRESSION:Multilevel disk and facet degenerative changes. Canal | | narrowing. MRI may provide additional information. Job No.: [id number] Read | | By: DREW GARZA MD Released By: VICKY BOUCHERate: 12/27/2015 12:47 | |REPORT: | |Disk space narrowing with endplate spurring and sclerosis is present at all lumbar levels. The vertebral body heights are maintained. The prior CT study demonstrates canal stenosis, L 3-4, related to posteriorly projecting endplate osteophyte. Canal | |narrowing also apparent, L2-3. Mild facet degenerative changes are present, L3-4 bilaterall y, best appreciated on the CT study. At L5-S1 on the left mild facet degenerative change pre sent. No lytic or blastic bone | |lesions are seen and the pedicles appear | | intact. | | | |IMPRESSION: | |Multilevel disk and facet degenerative changes. Canal narrowing. MRI may provide additional information. | | | | | |Job No.: [id number] | | | |Read By: DREW GARZA MD | | | |Released By: DREW GARZA MD | |Date: 12/27/2015 12:47 | | | | | + + documented in this encounter Visit Diagnoses Not on filedocumented in this encounter"
--- OUTSIDE RECORDS SUMMARY | ~2019-02-17 | XMS | Encounter Summary ---
Demographics + + + | Address | [address] | | | [place] [address] | + + + | Home Phone [...] Team Providers + +------+ + | Care Application Security Engineer Name | Role | Phone | [...] | | | | [place] | [address] | | | | | [address] | | | | | | [phone] | | | +--------+ + + + [...] [place] | | | | | | [address] | | | | | | [phone] | | | | | | | | +--------+---------+ + + + | 02/26/ | Office | Urology | Lillie Fowler | | | 2018 | Visit | | [address]ILLIE Lopez [address] | | | | | | [address] | | | | | | [place] | | | | | | [address] | | | | | | [phone] | | | | | | | | +--------+---------+ + + + | 03/16/ | Office | Neurology | Theresa, | | | 2018 | Visit | | [address] | | | | | [address] [place], | | | | | | [place] [address] | | | | | | [phone] | | | | | | | | +--------+---------+ + + + | 04/12/ | Office | Primary Care | Massimo Ramos | | | 2019 | Visit | | MD Fer [address] | | | | | | [place] | | | | | | [address] | | | | | | | | +--------+---------+ + + + | 10/03/ | Office | Neurology | Fabián Carias MD | | | 2019 | Visit | | [address] | | | | | | [place] | | | | | | [address] | | | | | | | [...] | | | care | | | Parking Inspector-C | | | | | | [...] | | | care | | | Parking Inspector-C | | | | | | [...] | | | care | | | Parking Inspector-C | | | | | | [...] | | | care | | | Parking Inspector-C | | | | | | [...]
--- OUTSIDE RECORDS SUMMARY | ~2019-02-17 | XMS | Encounter Summary ---
Demographics + + + | Address | [address] | | | [place] [address] | + + + | Home Phone [...] Team Providers + +------+ + | Care Lathe Scalper Operator Name | Role | Phone | [...] [facility] | DO [address] [place] | | | | | [facility] [address] | [place], [place] | | | | | [address] [place], | [address] | | | | | [place] [address] | [phone] | | | | | [phone] | | | +--------+ + + + [...] [place] | | | | | | [address] | | | | | | [phone] | | | | | | | | +--------+---------+ + + + | 02/26/ | Office | Urology | Lillie Fowler | | | 2018 | Visit | | LILLIE Lopez [address] | | | | | | [address] | | | | | | [place], [place] | | | | | | [address] | | | | | | [phone] | | | | | | | | +--------+---------+ + + + | 03/16/ | Office | Neurology | Theresa, | | | 2018 | Visit | | [address] | | | | | [address] [place], | | | | | | [place] [address] | | | | | | [phone] | | | | | | | | +--------+---------+ + + + | 04/12/ | Office | Primary Care | Massimo Ramos | | | 2019 | Visit | | MD [address] | | | | | | [place] | | | | | | [address] | | | | | | | | +--------+---------+ + + + | 10/03/ | Office | Neurology | Fabián Carias MD | | | 2019 | Visit | | [address] | | | | | | [place] | | | | | | [address] | | | | | | | [...] | | | care | | | Flat Hammerer-C | | | | | | | [...] Lifest | Coordinatio | | Yes | Joeclyn, | | management | yle | n of | | | Charline [place]os [place], | | | | complex | | | Case | | | | care | | | Flat Hammerer-C | | | | | | | [...] | | | care | | | Flat Hammerer-C | | | | | | | [...] n of | | | Charline Dos aSntos, | | | | complex | | | Case | | | | care | | | Flat Hammerer-C | | | | | | | linical | + +--------+ +---+-----+ + + + | Note: Pt will | | check CBG's daily x1 | | Pt will take Lantis as | | prescribed | + + documented as of this encounter Visit Diagnoses Not on filedocumented in this encounter"
--- OUTSIDE RECORDS SUMMARY | ~2019-02-17 | XMS | Encounter Summary ---
Demographics + + + | Address | [address] | | | [place] [address] | + + + | Home Phone [...] Team Providers + +------+ + | Care Lawyer Name | Role | Phone | + [...] | | | | | [address] [place], | [address] | | | | | [place] [address] | [phone] | | | | | [phone] | | | +--------+ + + + [...] [place] | | | | | | [address] | | | | | | [phone] | | | | | | | | +--------+---------+ + + + | 02/26/ | Office | Urology | Lillie Fowler | | | 2018 | Visit | | LILLIE Lopez [address] | | | | | | [address] | | | | | | [place] | | | | | | [address] | | | | | | [phone] | | | | | | | | +--------+---------+ + + + | 03/16/ | Office | Neurology | Theresa, | | | 2018 | Visit | | [address] | | | | | | [address] [place], | | | | | | [place] [address] | | | | | | [phone] | | | | | | | | +--------+---------+ + + + | 04/12/ | Office | Primary Care | Massimo Ramos | | | 2019 | Visit | | MD Fer [address] | | | | | | [place] | | | | | | [address] | | | | | | | | +--------+---------+ + + + | 10/03/ | Office | Neurology | Fabián Carias MD | | | 2019 | Visit | | [address] | | | | | | [place] | | | | | | [address] | | | | | | | [...] | | | care | | | Database Tester-C | | | | | | | [...] | | | care | | | Database Tester-C | | | | | | | [...] | | | care | | | Database Tester-C | | | | | | | [...] | | | care | | | Database Tester-C | | | | | | | linical | + +--------+ +---+-----+ + + + | Note: Pt will | | check CBG's daily x1 | | Pt will take Lantis as | | prescribed | + + documented as of this encounter Visit Diagnoses Not on filedocumented in this encounter"
--- OUTSIDE RECORDS SUMMARY | ~2019-02-17 | XMS | Encounter Summary ---
Demographics + + + | Address | [address] | | | [place] [address] | + + + | Home Phone [...] Team Providers + +------+ + | Care Lcpc Name | Role | Phone | + +------+ + | Ryan Gutiérrez MD | PCP | | + +------+ + Encounter Details +--------+ + + + + | Date | Type | Department | Care Team | Description | +--------+ + + + + | 07/04/ | Hospital | [facility] | Macario Sibley | | | 2016 | Encounter | [facility] | [address] | | | | | C[address] | [address] | | | | | DR [place], [place] | [place] [address] | | | | | [address] | [phone] | | | | | [phone] | | | +--------+ + + + [...] [place] | | | | | | [address] | | | | | | [phone] | | | | | | | | +--------+---------+ + + + | 02/26/ | Office | Urology | Lillie Fowler | | | 2018 | Visit | | LILLIE Lopez [address] | | | | | | [address] | | | | | | [place] | | | | | | [address] | | | | | | [phone] | | | | | | | | +--------+---------+ + + + | 03/16/ | Office | Neurology | Theresa, | | | 2018 | Visit | | [address] | | | | | | [address] [place], | | | | | | [place] [address] | | | | | | [phone] | | | | | | | | +--------+---------+ + + + | 04/12/ | Office | Primary Care | Massimo Ramos | | | 2019 | Visit | | MD Fer [address] | | | | | | [place] | | | | | | [address] | | | | | | | | +--------+---------+ + + + | 10/03/ | Office | Neurology | Fabián Carias MD | | | 2019 | Visit | | [address] | | | | | | [place] | | | | | | [address] | | | | | | | [...] | | | care | | | Water Reuse Program Manager-C | | | | | | [...] | | | care | | | Water Reuse Program Manager-C | | | | | | [...] | | | care | | | Water Reuse Program Manager-C | | | | | | [...] | | | care | | | Water Reuse Program Manager-C | | | | | | [...] + | URINALYSIS WITH | STAT | 07/05/2015 | | Results for this | | MICROSCOPIC WITH | | 11:11 AM | | procedure are in the | | CULTURE IF INDICATED | | PDT | | results section. | + +--------+ + + + | CBC W/AUTO | STAT | 07/05/2015 | | Results for this | | DIFFERENTIAL | | 11:11 AM | | procedure are in the | | | | PDT | | results section. | + +--------+ + + + | SEDIMENTATION RATE | STAT | 07/05/2015 | | Results for this | | | | 11:11 AM | | procedure are in the | | | | PDT | | results section. | + +--------+ + + + | LACTIC ACID | STAT | 07/05/2015 | | Results for this | | | | 11:11 AM | | procedure are in the | | | | PDT | | results section. | + +--------+ + + + | COMPREHENSIVE | STAT | 07/05/2015 | | Results for this | | METABOLIC PANEL | | 11:11 AM | | procedure are in the | | | | PDT | | results section. | + +--------+ + + + | CT ABDOMEN PELVIS W | Routin | 07/05/2015 | | Results for this | | CONTRAST | e | 10:23 AM | | procedure are in the | | | | PDT | | results section. | + +--------+ + + + documented in this encounter Results Urinalysis with Microscopic with Culture if Indicated (07/05/2015 11:11 AM PDT) + + + + + [...] - 1.030 | EXTERNAL | | | [place], | | | LAB | | | Urine | | | | | + + + + + + | pH, Urine | 5 | 5.0 - 7.0 pH | EXTERNAL | | | | | | LAB | | + + + + + + | Leukocyte | 25 | NEGATIVE /uL | EXTERNAL [...] | + +---------+ + + Sedimentation Rate (07/05/2015 11:11 AM PDT) + +-------+ + + + | Component | Value | Ref Range | Performed | Pathologist | | | | | At | Signature | + +-------+ + + + | ESR | 29 | <=20 mm/h | EXTERNAL | | [...] | + +---------+ + + Lactic Acid (07/05/2015 11:11 AM PDT) + +-------+ + + + | Component | Value | Ref Range | Performed | Pathologist | | | | | At | Signature | + +-------+ + + + | Lactate, | 1.5 | 0.4 - 2.1 | EXTERNAL | [...] + +---------+ + + Comprehensive Metabolic Panel (07/05/2015 11:11 AM PDT) + +-------+ + + + | Component | Value | Ref Range | Performed | Pathologist | | | | | At | Signature | + +-------+ + + + | Sodium | 130 | 132 - 143 | EXTERNAL | | | | | mmol/L | LAB | | + +-------+ + + + | Potassium | 3.8 | 3.3 - 4.9 | EXTERNAL | [...] +-------+ + + + | Calcium | 8.4 | 8.3 - 10.0 | EXTERNAL | | | | | mg/dL | LAB | | + +-------+ + + + | Glucose | 130 | 70 - 110 mg/dL | EXTERNAL | | | | | | LAB | | + +-------+ + + + | BUN, Bld | 16 | 5 - 26 mg/dL | EXTERNAL | | | | | | LAB | | + +-------+ + + + | Creatinine | 1.08 | 0.70 - 1.40 | EXTERNAL | | | | | mg/dL | LAB | | + +-------+ + + + | BUN/Creatin | 14.8 | 7.0 - 24.0 | EXTERNAL | | | ine Ratio | | RATIO | LAB | | + +-------+ + + + | GFR | 60 | >=60 | EXTERNAL | | | ESTIMATE | | mL/min/1.73m2 | LAB | | + +-------+ + + + | Bilirubin, | 0.3 | <=1.2 mg/dL | EXTERNAL | | | Total | | | LAB | | + +-------+ + + + | Protein, | 7.1 | 6.6 - 8.5 g/dL | EXTERNAL | | | Total | | | LAB | | + +-------+ + + + | Albumin | 3.1 | 3.0 - 4.5 g/dL | EXTERNAL | | | | | | LAB | | + +-------+ + + + | Alkaline | 72 | 46 - 116 U/L | EXTERNAL | | | Phosphatase | | | LAB | | + +-------+ + + + | ALT, | 28 | 16 - 63 U/L | EXTERNAL | | | External | | | LAB | | + +-------+ + + + | AST, | 24 | <=38 U/L | EXTERNAL | | [...] +---------+ + + CBC w/ Auto Differential (07/05/2015 11:11 AM PDT) + + + + + + | Component | Value | Ref Range | Performed | Pathologist | | | | | At | Signature | + + + + + + | WBC | 12.7 | 4.6 - 10.5 | EXTERNAL | | | | | 1000/mm3 | LAB | | + + + + + + | RBC | 4.22 | 4.36 - 5.83 | EXTERNAL | | | | | mil/mm3 | LAB | | + + + + + + | HGB, | 12.8 | 13.1 - 17.4 | EXTERNAL | | | External | | g/dL | LAB | | + + + + + + | HCT, | 39.2 | 39.0 - 51.9 % | EXTERNAL | | | External | | | LAB | | + + + + + + | MCV | 93 | 82 - 96 fl | EXTERNAL | | | | | | LAB | | + + + + + + | MCH | 30.3 | 27.7 - 32.3 pg | EXTERNAL | | | | | | LAB | | + + + + + + | MCHC | 32.7 [...] + + + + | Platelet | 292 | 150 - 450 | EXTERNAL | | | Count | | 1000/mm3 | LAB | | | Plasma | | | | | + + + + + + | MPV | 10.2 | 9.4 - 12.4 FL | EXTERNAL | | | | | | LAB | | + + + + + + | % Segmented | 70.9 | 42.0 - 76.0 % | EXTERNAL | | | | | | LAB | | | Neutrophils | | | | | + + + + + + | % | 12.3 | 20.0 - 40.0 % | EXTERNAL | | | Lymphocytes | | | LAB | | + + + + + + | % Monocytes | 13.7 | 3.0 - 13.0 % | EXTERNAL | | | | | | LAB | | + + + + + + | % | 2.9 | 0.0 - 7.0 % | EXTERNAL | | | Eosinophils | | | LAB | | + + + + + + | % Basophils | 0.2 | 0.0 - 2.0 % | EXTERNAL | | | | | | LAB | | + + + + + + | Absolute | 8.97 | 2.80 - 7.70 | EXTERNAL | | | Neutrophils | | 1000/mm3 | LAB | | + + + + + + | Absolute | 1.56 | 1.20 - 3.30 | EXTERNAL | | | Lymphocytes | | 1000/mm3 | LAB | | + + + + + + | Absolute | 1.73 | 0.00 - 0.80 | EXTERNAL | | | Monocytes | | 1000/mm3 | LAB | | + + + + + + | Absolute | 0.37 | 0.00 - 0.70 | EXTERNAL | | | Eosinophils | | 1000/mm3 | LAB | | + + + + + + | Absolute | 0.03 | 0.00 - 0.20 | EXTERNAL | | | Basophils | | 1000/mm3 | LAB | | + + + + + + | SLIDE | SMEAR REVIEWED | | EXTERNAL | | | [...] + + CT Abdomen Pelvis w Contrast (07/05/2015 10:23 AM PDT) + + | Specimen | + + | | + + + + + | Narrative | Performed At | + + + | ORIGINAL CT ABDOMEN AND PELVIS WITH CONTRAST | | | HISTORY: Abdominal pain. Recent surgery for perforated | | | diverticulitis. COMPARISON STUDY: June 22, 2015; March 13, | | | 2009. TECHNIQUE: 5-mm axial slices were acquired through the | | | abdomen and pelvis with contrast. There was no postcontrast reaction. | | | DOSE REPORT: DLP: 1152.61 mGy-cm. FINDINGS: Heart size is | | | stable. Lung bases are clear. There is no pericardial or pleural | | | effusion. Small hiatal hernia is present. No focal liver lesion is | | | identified. There is change of prior cholecystectomy. No intrahepatic | | | biliary ductal dilatation. No extrahepatic biliary ductal dilatation. | | | The pancreas and spleen are unremarkable. Adrenal glands are | | | normal. Right renal cyst is again noted. Bilateral lobulations. | | | No acute renal process. No hydronephrosis, no hydroureter. No bladder | | | wall thickening. Prostate gland and seminal vesicles are | | | symmetric. Aorta is normal in course and caliber. There is | | | atherosclerosis without aneurysmal dilatation. There are scattered | | | retroperitoneal and mesenteric lymph nodes likely reactive. No | | | pathologically enlarged lymph node is identified. Drainage | | | catheter is noted entering from the left lower abdominal wall and is | | | positioned adjacent to the sigmoid colon. Inflammatory changes of the | | | sigmoid colon are still evident. No extraluminal air is identified | | | other than adjacent to the catheter tip. Extensive diverticular | | | disease of the cecum, descending and sigmoid colon are noted. No bowel | | | obstruction. There is a small amount of fluid and air along the tract | | | from the removed right-sided drainage catheter. Small bilateral | | | fat-containing inguinal hernias. There is no evidence of an acute bone | | | process. IMPRESSION: 1. Persistent diverticulitis of the sigmoid | | | colon. No suspicious increase in extraluminal air is identified. 2. | | | Interval placement of drainage catheters. The right catheter has been | | | removed. 3. Small hiatal hernia. 4. Fat-containing inguinal hernias. | | | 5. The results of the study were discussed with Dr. Sibley at the | | | time of the study. Job No.: [id number] Read By: | | | MASSIMO NUNEZ MD Released By: MASSIMO NUNEZ MD Date: | | | 07/05/2015 16:04 | | + + + + + | Procedure Note | + + | Osito, Rad Results In - 02/12/2017 10:06 PM PST [address] CT ABDOMEN AND PELVIS | | WITH CONTRAST HISTORY:Abdominal pain. Recent surgery for perforated diverticulitis. | | COMPARISON STUDY:June 22, 2015; March 13, 2010. TECHNIQUE:5-mm axial slices were | | acquired through the abdomen and pelvis with contrast. There was no postcontrast | | reaction. DOSE REPORT:DLP: 1152.61 mGy-cm. FINDINGS:Heart size is stable. Lung bases are | | clear. There is no pericardial or pleural effusion. Small hiatal hernia is present. No | | focal liver lesion is identified. There is change of prior cholecystectomy. No | | intrahepatic biliary ductal dilatation. No extrahepatic biliary ductal dilatation. The | | pancreas and spleen are unremarkable. Adrenal glands are normal. Right renal cyst is | | again noted. Bilateral lobulations. No acute renal process. No hydronephrosis, no | | hydroureter. No bladder wall thickening. Prostate gland and seminal vesicles are | | symmetric. Aorta is normal in course and caliber. There is atherosclerosis without | | aneurysmal dilatation. There are scattered retroperitoneal and mesenteric lymph nodes | | likely reactive. No pathologically enlarged lymph node is identified. Drainage catheter | | is noted entering from the left lower abdominal wall and is positioned adjacent to the | | sigmoid colon. Inflammatory changes of the sigmoid colon are still evident. No | | extraluminal air is identified other than adjacent to the catheter tip. Extensive | | diverticular disease of the cecum, descending and sigmoid colon are noted. No bowel | | obstruction. There is a small amount of fluid and air along the tract from the removed | | right-sided drainage catheter. Small bilateral fat-containing inguinal hernias. There is | | no evidence of an acute bone process. IMPRESSION:1. Persistent diverticulitis of the | | sigmoid colon. No suspicious increase in extraluminal air is identified.2. Interval | | placement of drainage catheters. The right catheter has been removed.3. Small hiatal | | hernia.4. Fat-containing inguinal hernias.5. The results of the study were discussed | | with Dr. Sibley at the time of the study. Job No.: [id number] Read By: | | MASSIMO NUNEZ MD Released By: MASSIMO NUNEZ MDDate: 07/05/2015 16:04 | |lymph node is identified. | | | |Drainage catheter is noted entering from the left lower abdominal wall and is positioned ad jacent to the sigmoid colon. Inflammatory changes of the sigmoid colon are still evident. No extraluminal air is identified other than adjacent to the catheter | |tip. Extensive diverticular disease of the cecum, descending and sigmoid colon are noted. N o bowel obstruction. There is a small amount of fluid and air along the tract from the remov ed right-sided drainage catheter. | | | |Small bilateral fat-containing inguinal hernias. There is no evidence of an acute bone proc ess. | | | |IMPRESSION: | |1. Persistent diverticulitis of the sigmoid colon. No suspicious increase in extraluminal a ir is identified. | |2. Interval placement of drainage catheters. The right catheter has been removed. | |3. Small hiatal hernia. | |4. Fat-containing inguinal hernias. | |5. The results of the study were discussed with Dr. Sibley at the time of the study. | | | | | |Job No.: [id number] | | | |Read By: MASSIMO NUNEZ MD | | | |Released By: MASSIMO NUNEZ MD | |Date: 07/05/2015 16:04 | | | | | + + documented in this encounter Visit Diagnoses Not on filedocumented in this encounter"
--- OUTSIDE RECORDS SUMMARY | ~2019-02-17 | XMS | Encounter Summary ---
Demographics + + + | Address | [address] | | | [place] [address] | + + + | Home Phone [...] Team Providers + +------+ + | Care Freelance Designer Name | Role | Phone | + [...] Appointment Question | | 2019 | | [facility] | | (Echo & EEG) | | | | CLINIC [address] | | | | | | [address] [place], | | | | | | [place] [address] | | | | | | [phone] | | | +--------+ + + + [...] [place] | | | | | | [address] | | | | | | [phone] | | | | | | | | +--------+---------+ + + + | 02/26/ | Office | Urology | Lillie Fowler | | | 2018 | Visit | | LILLIE Lopez [address] | | | | | | [address] | | | | | | [place], [place] | | | | | | [address] | | | | | | [phone] | | | | | | | | +--------+---------+ + + + | 03/16/ | Office | Neurology | Theresa, | | | 2018 | Visit | | [address] | | | | | [address] [place], | | | | | | [place] [address] | | | | | | [phone] | | | | | | | | +--------+---------+ + + + | 04/12/ | Office | Primary Care | Massimo Ramos Pedro Luis | | | 2019 | Visit | | MD Fer [address] | | | | | | [place] | | | | | | [address] | | | | | | | | +--------+---------+ + + + | 10/03/ | Office | Neurology | Fabián Carias MD | | | 2019 | Visit | | [address] | | | | | | [place] | | | | | | [address] | | | | | | | [...] | | | care | | | Yard Jacker-C | | | | | | | [...] | | | care | | | Yard Jacker-C | | | | | | | [...] | | | care | | | Yard Jacker-C | | | | | | | [...] | | | care | | | Yard Jacker-C | | | | | | | [...]
--- OUTSIDE RECORDS SUMMARY | ~2019-02-17 | XMS | Encounter Summary ---
Demographics + + + | Address | [address] | | | [place] [address] | + + + | Home Phone | | + + + | Preferred Language | Unknown | + + + | Marital Status | | + + + | Anglican Affiliation | 1025 | + + + | Race | Unknown | + + + | Ethnic Group | Unknown | + + + Author + + + | Author | [facility] | | | and [place] | + + + | Organization | [facility] | | [...] Team Providers + +------+ + | Care Superintendent Mechanical Name | Role | Phone | + +------+ + | Ryan Gutiérrez MD | PCP | | + +------+ + Encounter Details +--------+ + + + + | Date | Type | Department | Care Team | Description | +--------+ + + + + | 06/20/ | [facility] | Scott De Oliveira | | | 2017 | Encounter | HOSPITAL GENERAL | DO [address] | | | | | SURGERY [address] | [address] | | | | | [address] [place], | [facility], [place] | | | | | [place] [address] | [address] | | | | | [phone] | [phone] | | | | | | | [...] [place] | | | | | | [address] | | | | | | [phone] | | | | | | | | +--------+---------+ + + + | 02/26/ | Office | Urology | Lillie Fowler | | | 2018 | Visit | | LILLIE Lopez [address] | | | | | | [address] | | | | | | [place] | | | | | | [address] | | | | | | [phone] | | | | | | | | +--------+---------+ + + + | 03/16/ | Office | Neurology | Theresa, | | | 2018 | Visit | | [address] | | | | | [address] [place], | | | | | | [place] [address] | | | | | | [phone] | | | | | | | | +--------+---------+ + + + | 04/12/ | Office | Primary Care | Massimo Ramos | | | 2019 | Visit | | MD Fer [address] | | | | | | [place] | | | | | | [address] | | | | | | | | +--------+---------+ + + + | 10/03/ | Office | Neurology | Fabián Carias MD | | | 2019 | Visit | | [address] | | | | | | [place] | | | | | | [address] | | | | | | | [...] | | | care | | | Painting Worker-C | | | | | | [...] | | | care | | | Painting Worker-C | | | | | | [...] | | | care | | | Painting Worker-C | | | | | | [...] | | | care | | | Painting Worker-C | | | | | | | linical | + +--------+ +---+-----+ + + + | Note: Pt will | | check CBG's daily x1 | | Pt will take Lantis as | | prescribed | + + documented as of this encounter Visit Diagnoses Not on filedocumented in this encounter"
--- OUTSIDE RECORDS SUMMARY | ~2019-02-17 | XMS | Encounter Summary ---
Demographics + + + | Address | [address] | | | [place] [address] | + + + | Home Phone [...] Team Providers + +------+ + | Care Lan Analyst Name | Role | Phone | [...] + + + | Closed | | Respiratory | Diagnoses | Carias, | Cc Wgr | | | | Therapy | [facility] | Fabián Panda, | Respiratory | | | | | [id number] | [address] | Therapy [address] | | | | | good through | [address], | [address] | | | | | 01/19/19 | [address] | [place], [place] | | | | | Procedures | [place], [place] | [address] | | | | | CC EEG | [address] | Phone: | | | | | | Phone: | [phone] | | | | | | [phone] | Fax: | | | | | | Fax: | [phone] | | | | | | [phone] | | +--------+--------+ + + + + Encounter Details +--------+ + + + + | Date | Type | Department | Care Team | Description | +--------+ + + + + | 09/01/ | Hospital | [place] [facility] | Fabián Carias MD | Syncope, unspecified | | 2019 | Encounter | HOSPITAL RESPIRATORY | [address] | syncope type | | | | THERAPY [address] | [address] [place] | | | | | [place] | [address] | | | | | [address] | | | | | | [phone] | | | +--------+ + + + [...] | 3 | 08/28/19 | | | (CYMBALTA) [address] [...] capsule by | 180 | 1 | 08/28/19 | | | (LYRICA) 300 MG | [...] | | | | use of insulin ([facility]) | | | | | | + [...] documented as of this encounter Progress Notes Jas Knutson RRT - 09/01/2018 2:35 PM PDTAwake and drowsy EEG performed, patient ricky ated study well. docum ented in this encounter Plan of Treatment +--------+---------+ [...] [place] | | | | | | [address] | | | | | | [phone] | | | | | | | | +--------+---------+ + + + | 02/26/ | Office | Urology | Lillie Fowler | | | 2018 | Visit | | LILLIE Lopez [address] | | | | | | [address] | | | | | | [place], [place] | | | | | | [address] | | | | | | [phone] | | | | | | | | +--------+---------+ + + + | 03/16/ | Office | Neurology | Theresa, | | | 2018 | Visit | | [address] | | | | | [address] [place], | | | | | | [place] [address] | | | | | | [phone] | | | | | | | | +--------+---------+ + + + | 04/12/ | Office | Primary Care | Massimo Ramos | | | 2019 | Visit | | MD Fer [address] | | | | | | [place] | | | | | | [address] | | | | | | | | +--------+---------+ + + + | 10/03/ | Office | Neurology | Fabián Carias MD | | | 2019 | Visit | | [address] | | | | | | [place] | | | | | | [address] | | | | | | | [...] | | | care | | | Automotive Assembler-C | | | | | | [...] | | | care | | | Automotive Assembler-C | | | | | | [...] | | | care | | | Automotive Assembler-C | | | | | | [...] | | | care | | | Automotive Assembler-C | | | | | | [...] + + | EEG | Routin | 09/01/2018 | Syncope, | Results for this | | | e | 3:43 PM | unspecified syncope | procedure are in the | | | | PDT | type | results section. | + +--------+ + + + documented in this encounter Results EEG (09/01/2018 3:43 PM [...] this patient. Saira Orellana, | | | MD09/01/201815:43 Electronically signed | | + + + documented in [...]
--- OUTSIDE RECORDS SUMMARY | ~2019-02-17 | XMS | Encounter Summary ---
Demographics + + + | Address | [address] | | | [place] [address] | + + + | Home Phone [...] Team Providers + +------+ + | Care Media Marketing Director Name | Role | Phone | + +------+ + | Horacio Silvestre DO | PCP | | + +------+ + Encounter Details +--------+ + + + + | Date | Type | Department | Care Team | Description | +--------+ + + + + | 11/18/ | Orders Only | [facility] | Horacio Silvestre, | Type 2 diabetes | | 2018 | | [facility] | DO [address] [place] | mellitus with | | | | [facility] | [place], [place] | diabetic | | | [address] [place], | [address] | polyneuropathy, with | | | | [place] [address] | [phone] | long-term current | | | | [phone] | | use of insulin (HCC) | [...] [place] | | | | | | [address] | | | | | | [phone] | | | | | | | | +--------+---------+ + + + | 02/26/ | Office | Urology | Lillie Fowler | | | 2018 | Visit | | [address] | | | | | | [address] | | | | | | [place] | | | | | | [address] | | | | | | [phone] | | | | | | | | +--------+---------+ + + + | 03/16/ | Office | Neurology | Theresa, | | | 2018 | Visit | | [address] | | | | | | [address] [place], | | | | | | [place] [address] | | | | | | [phone] | | | | | | | | +--------+---------+ + + + | 04/12/ | Office | Primary Care | Massimo Ramos | | | 2019 | Visit | | MD [address] | | | | | | [place] | | | | | | [address] | | | | | | | | +--------+---------+ + + + | 10/03/ | Office | Neurology | Fabián Carias MD | | | 2019 | Visit | | [address] | | | | | | [place], [place] | | | | | | [address] | | | | | | | [...] | | | care | | | Asset Protection Representative-C | | | | | | [...] | | | care | | | Asset Protection Representative-C | | | | | | [...] | | | care | | | Asset Protection Representative-C | | | | | | [...] | | | care | | | Asset Protection Representative-C | | | | | | | linical | + +--------+ +---+-----+ + + + | Note: Pt will | | check CBG's daily x1 | | Pt will take Lantis as | | prescribed | + + documented as of this encounter Results Lipid Panel (12/10/2017 12:59 PM PDT) + + + + + + | Component | Value | Ref Range | Performed | Pathologist | | | | | At | Signature | + + + + + + | Triglycerid | 160 | 30 - 200 mg/dL | [facility] | | | es | | | [facility] | | | | | | [facility] | | | | | | [facility] | | | | | | [facility] LAB | | + + + + + + | Cholesterol | 115 | 0 - 200 mg/dL | [facility] | | | | | | [facility] | | | | | [facility] | | | | | [facility] | | | | | | [facility] | | + + + + + + | HDL | 29 (L) | >=40 mg/dL | [facility] | | | | | | [facility] | | | | | | [facility] | | | | | | [facility] | | | | | | [facility] | | + + + + + + | Chol/HDL | 4.0 | | [facility] | | | Ratio | | | [facility] | | | | | | [facility] | | | | | | [facility] | | | | | | [facility] | | + + + + + + | LDL, | 54Comment: LDL reference | <=150 mg/dL | [facility] | | | Calculated | range: < 100 | | [facility] | | | | mg/dL [id number] - | | [facility]OS[facility] | | | | 129 mg/dL Near | | REGIONAL | | | | [id number] - 159 mg/dL | | MEDICAL | | | | [id number] - 189 | | CENTER LAB | | | | mg/dL High | | | | | | > 190 mg/dL Very | | | | | | High | | | | + + + + + + | Fasting? | Yes | | [facility] | | | | | [...] Performed At | + + + | Fasting 7 hrs | [facility] | | | [facility] | | | [facility] | | [facility] | | | LAB | + + + + + + + + | Performing | Address | City/State/Zipcode | Phone Number | | Organization | | | | + + + + + | [facility] | [address] | [place] [address] | [phone] | | [facility] | | | | | [facility] | | | | + + + + + Microalbumin/Creatinine Ratio, Urine (12/10/2017 12:59 PM PDT) + + + + + + | Component | Value | Ref Range | Performed | Pathologist | | | | | At | Signature | + + + + + + | Microalbumi | 146.2 (H) | 0 - 30 mg/L | [facility] | | | n, Urine | | | [facility] | [facility] | | | | | | [facility] | | | | | | [facility] | | | | | | [facility] | | + + + + + + | Creatinine, | 129 | 20 - 370 mg/dL | [facility] | | | Urine, | | | [facility] | | | Random | | | [facility] | | | | | | [facility] | | | | | | MED[facility] | | | | | | CENTER LAB | | + + + + + + | Microalbumi | 113 (H) | 0 - 17 mg/g | [facility] | | | n/Creatinin | | | [facility] | | | ratio | | | [facility] | | | [...] + + + | [facility] | [address] | [place] [address] | [phone] | | [facility] | | | | | [facility] | | | | + + + + + Hemoglobin A1C (12/10/2017 12:59 PM PDT) + +---------+ + + + | Component | Value | Ref Range | Performed | Pathologist | | | | | At | Signature | + +---------+ + + + | Hemoglobin | 6.5 (H) | 4.5 - 6.2 % | [facility] | | | A1c | | | [facility] | | | | | [facility] | | | | | | [facility] | | | | | | [facility] | | | | | | [facility] | | + +---------+ + + + | Estimated | 140 | mg/dL | [facility] | | | Average | | | [facility] | | | Glucose | | | [facility] | | | | | | [facility] | | | | | | MED[facility] | | | | | | [facility]ENTER LAB | | + +---------+ + + + + + | Specimen | + + | Blood | + + + + + + + | Performing | Address | City/State/Zipcode | Phone Number | | Organization | | | | + + + + + | [facility] | [address] [place] [address] | [place] [address] | [phone] | | [facility] | | | | | [facility] | | | | + + + + + Comprehensive Metabolic Panel (12/10/2017 12:59 PM PDT) + + + + + [...] + + + + | CO2 | 30 [...] + + + + | Glucose | 121 (H) | 70 - 110 mg/dL | [facility] | | | | | | [facility] | | | | | | [facility] | | | | | | [facility] | | | | | | [facility] | | + + + + + + | BUN | 28 (H) | 5 - 26 mg/dL | [facility] | | | | | | [facility] | | | | | | [facility] | | | | | | [facility] | | | | | | [facility] | | + + + + + + | Creatinine | 1.15 | 0.60 - 1.30 | [facility] | | | | | [...] | mL/min/1.73m2 | [facility] | | | [facility] | RATE,ESTIMATED | | [facility]OS[facility]ITAL | | | | mL/min/1.47s5Ybxo than | | REGIONAL | | | | 60 Chronic kidney | | MEDICAL | | | | disease,if found over a | | CENTER LAB | | | | 3-month period.Less than [...] + + + + | Albumin | 4.4 | 3.0 - 4.5 g/dL | [facility] [...] + + + + | Total | 8.8 (H) | 6.6 - 8.5 g/dL | [place] [...] + + + + | ALT | 64 (H) | 16 - 63 U/L | [facility] | | | | | | [facility] | | | | | | [facility] | | | | | | [facility] | | | | | | [facility] | | + + + + + + | Alkaline | 72 | 46 - 116 U/L | [facility] | | | Phosphatase | | | [facility] | | | | | [facility] | | | | | | [facility] | | | | | | MED[facility] | | | | | | CENTER LAB | | + + + + + + | Globulin | 4.4 | g/dL | [facility] | | | [...] + + + + | BUN/Creatin | 24.3 (H) | 7.0 - 24.0 | [facility] | | | ine Ratio | | | [facility] | | | | [facility] | | | | | | [facility] | | | | | | [facility] | | | | | | [facility]ENTER LAB | | + + + + + + | Fasting? | Yes | | [facility] | | | | | [...] + + + | [facility] | [address] [place] [address] | [place] [address] | [phone] | | [facility] | | | | | [facility] | | | | + + + + + documented in this encounter Visit Diagnoses + + | Diagnosis | + + | Type 2 diabetes mellitus with diabetic polyneuropathy, 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) - Primary | + + documented in this encounter"
--- OUTSIDE RECORDS SUMMARY | ~2019-02-17 | XMS | Encounter Summary ---
Demographics + + + | Address | [address] | | | [place] [address] | + + + | Home Phone [...] Team Providers + +------+ + | Care Source Water Protection Specialist Name | Role | Phone | [...] | +--------+ + + + + | 12/16/ | Telephone | [facility] | Fabián Carias MD | Results, Imaging | | 2018 | | HOSPITAL [facility] | [address] | | | | | CLIN[address] | [place] | | | | | [address] [place] [place], | [address] | | | | | [place] [address] | | | | | | [phone] | | | +--------+ + + + [...] | 2018 | Visit | | DO [address] | | | | | | [address] | | | | | | [place], [place] | | | | | | [address] | | | | | | [phone] | | | | | | | | +--------+---------+ + + + | 02/26/ | Office | Urology | Lillie Fowler | | | 2018 | Visit | | [address] | | | | | | [address] | | | | | | [place], [place] | | | | | | [address] | | | | | | [phone] | | | | | | | | +--------+---------+ + + + | 03/16/ | Office | Neurology | Theresa, | | | 2018 | Visit | | [address] | | | | | | [address] [place], | | | | | | [place] [address] | | | | | | [phone] | | | | | | | | +--------+---------+ + + + | 04/12/ | Office | Primary Care | Massimo Ramos Pedro Luis | | | 2019 | Visit | | MD [address] | | | | | | [place] | | | | | | [address] | | | | | | | | +--------+---------+ + + + | 10/03/ | Office | Neurology | Fabián Carias MD | | | 2019 | Visit | | [address] | | | | | | [place] | | | | | | [address] | | | | | | | [...] | | | care | | | Sanitation Worker-C | | | | | | [...] | | | care | | | Sanitation Worker-C | | | | | | [...] | | | care | | | Sanitation Worker-C | | | | | | [...] | | | care | | | Sanitation Worker-C | | | | | | | linical | + +--------+ +---+-----+ + + + | Note: Pt will | | check CBG's daily x1 | | Pt will take Lantis as | | prescribed | + + documented as of this encounter Visit Diagnoses Not on filedocumented in this encounter"
--- OUTSIDE RECORDS SUMMARY | ~2019-02-17 | XMS | Encounter Summary ---
Demographics + + + | Address | [address] | | | [place] [address] | + + + | Home Phone | | + + + | Preferred Language | Unknown | + + + | Marital Status | | + + + | Nondenominational Affiliation | 1025 | + + + | Race | Unknown | + + + | Ethnic Group | Unknown | + + + Author + + + | Author | [facility] | | | and [place] | + + + | Organization | [facility] | | | [...] Team Providers + +------+ + | Care Craft Coordinator Name | Role | Phone | [...] 05/28/ | Telephone | [facility] | Charline Banks, | Transitions Of Care | | 2019 | | HOSPITAL OP CASE | Case | | | | | MANAGEMENT [address] | Petroleum Refining Equipment Operator-Clinical | | | | | [place] | | | | | | [place] | | | | | | [address] | | | | | | [phone] | | | +--------+ + + + [...] [place] | | | | | | [address] | | | | | | [phone] | | | | | | | | +--------+---------+ + + + | 02/26/ | Office | Urology | Lillie Fowler | | | 2018 | Visit | | [address] | | | | | | [address] | | | | | | [place], [place] | | | | | | [address] | | | | | | [phone] | | | | | | | | +--------+---------+ + + + | 03/16/ | Office | Neurology | Theresa, | | | 2018 | Visit | | [address] | | | | | | [address] [place], | | | | | | [place] [address] | | | | | | [phone] | | | | | | | | +--------+---------+ + + + | 04/12/ | Office | Primary Care | Massimo Ramos Pedro Luis | | | 2019 | Visit | | MD [address] | | | | | | [place] | | | | | | [address] | | | | | | | | +--------+---------+ + + + | 10/03/ | Office | Neurology | Fabián Carias MD | | | 2019 | Visit | | [address] | | | | | | [place] | | | | | | [address] | | | | | | | [...] | | | care | | | Petroleum Refining Equipment Operator-C | | | | | | [...] | | | care | | | Petroleum Refining Equipment Operator-C | | | | | | [...] | | | care | | | Petroleum Refining Equipment Operator-C | | | | | | [...] | | | care | | | Petroleum Refining Equipment Operator-C | | | | | | | linical | + +--------+ +---+-----+ + + + | Note: Pt will | | check CBG's daily x1 | | Pt will take Lantis as | | prescribed | + + documented as of this encounter Visit Diagnoses Not on filedocumented in this encounter"
--- OUTSIDE RECORDS SUMMARY | ~2019-02-17 | XMS | Encounter Summary ---
Demographics + + + | Address | [address] | | | [place] [address] | + + + | Home Phone [...] Team Providers + +------+ + | Care Insole Doubler Name | Role | Phone | + [...] | +--------+ + + + + | 08/26/ | Telephone | [facility] | Charline Banks, | Transitions Of Care | | 2019 | | [facility] | Case | | | | | [facility] [address] | Manager Professional Development-Clinical | | | | | [facility] [facility], | | | | | | [place] [address] | | | | | | [phone] | | | +--------+ + + + [...] [place] | | | | | | [address] | | | | | | [phone] | | | | | | | | +--------+---------+ + + + | 02/26/ | Office | Urology | Lillie Fowler | | | 2018 | Visit | | [address] | | | | | | [address] | | | | | | [place], [place] | | | | | | [address] | | | | | | [phone] | | | | | | | | +--------+---------+ + + + | 03/16/ | Office | Neurology | Theresa, | | | 2018 | Visit | | [address] | | | | | | [address] [place], | | | | | | [place] [address] | | | | | | [phone] | | | | | | | | +--------+---------+ + + + | 04/12/ | Office | Primary Care | Massimo Ramos | | | 2019 | Visit | | MD [address] | | | | | | [place] | | | | | | [address] | | | | | | | | +--------+---------+ + + + | 10/03/ | Office | Neurology | Fabián Carias MD | | | 2019 | Visit | | [address] | | | | | | [place] | | | | | | [address] | | | | | | | [...] | | care | | | Manager Professional Development-C | | | | | | | [...] | | care | | | Manager Professional Development-C | | | | | | | [...] | | care | | | Manager Professional Development-C | | | | | | | [...] | | care | | | Manager Professional Development-C | | | | | | | [...]
--- OUTSIDE RECORDS SUMMARY | ~2019-02-17 | XMS | Encounter Summary ---
Demographics + + + | Address | [address] | | | [place] [address] | + + + | Home Phone | | + + + | Preferred Language | Unknown | + + + | Marital Status | | + + + | Quaker Affiliation | 1025 | + + + | Race | Unknown | + + + | Ethnic Group | Unknown | + + + Author + + + | Author | [facility] | | | and [place] | + + + | Organization | [facility] | | [...] Team Providers + +------+ + | Care Crew Mess Attendant Name | Role | Phone | + [...] | [facility] | [address] [place] | degenerative disc | | | | MEDICAL CLIN[facility] [address] | [facility], [place] | disease (Primary | | | | [address] [place], | [address] | Dx); Type 2 diabetes | | | | [place] [address] | [phone] | mellitus with | | | | [phone] | | diabetic | | | | [...] His reports their son was previously organizing [employer] 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 On potassium wasting [...] [place] | | | | | | [address] | | | | | | [phone] | | | | | | | | +--------+---------+ + + + | 02/26/ | Office | Urology | Lillie Fowler | | 2018 | Visit | | [address]IE Lopez [address] | | | | | | [address] | | | | | | [place] | | | | | | [address] | | | | | | [phone] | | | | | | | | +--------+---------+ + + + | 03/16/ | Office | Neurology | Theresa, | | | 2018 | Visit | | [address] | | | | | | [address] [place], | | | | | | [place] [address] | | | | | | [phone] | | | | | | | | +--------+---------+ + + + | 04/12/ | Office | Primary Care | Massimo Ramos | | | 2019 | Visit | | MD [address] | | | | | | [place] | | | | | | [address] | | | | | | | | +--------+---------+ + + + | 10/03/ | Office | Neurology | Fabián Carias MD | | | 2019 | Visit | | [address] | | | | | | [place] | | | | | | [address] | | | | | | | [...] | | | care | | | Social Media Coordinator-C | | | | | | [...] | | | care | | | Social Media Coordinator-C | | | | | | [...] | | | care | | | Social Media Coordinator-C | | | | | | [...] | | | care | | | Social Media Coordinator-C | | | | | | [...]
--- OUTSIDE RECORDS SUMMARY | ~2019-02-17 | XMS | Encounter Summary ---
Demographics + + + | Address | [address] | | | [place] [address] | + + + | Home Phone [...] Team Providers + +------+ + | Care Apartment Maintenance Supervisor Name | Role | Phone | [...] | +--------+ + + + + | 04/02/ | Telephone | [facility] | Horacio Silvestre, | Medication Refill | | 2016 | | [facility] | DO [address] [place] | | | | | MEDICAL CLINIC [address] | [facility] [place] | | | | | [address] [place], | [address] | | | | | [place] [address] | [phone] | | | | | [phone] | | | +--------+ + + + [...] [place] | | | | | | [address] | | | | | | [phone] | | | | | | | | +--------+---------+ + + + | 02/26/ | Office | Urology | Lillie Fowler | | | 2018 | Visit | | [address] | | | | | | [address] | | | | | | [place] | | | | | | [address] | | | | | | [phone] | | | | | | | | +--------+---------+ + + + | 03/16/ | Office | Neurology | Theresa, | | | 2018 | Visit | | [address] | | | | | | [address] [place], | | | | | | [place] [address] | | | | | | [phone] | | | | | | | | +--------+---------+ + + + | 04/12/ | Office | Primary Care | Massimo Ramos | | | 2019 | Visit | | MD Fer [address] | | | | | | [address] [place], [place] | | | | | | [address] | | | | | | | | +--------+---------+ + + + | 10/03/ | Office | Neurology | Fabián Carias MD | | | 2019 | Visit | | [address] | | | | | | [place] | | | | | | [address] | | | | | | | [...] | | | care | | | Fine Arts Model-C | | | | | | | [...] | | | care | | | Fine Arts Model-C | | | | | | | [...] | | | care | | | Fine Arts Model-C | | | | | | | [...] | | | care | | | Fine Arts Model-C | | | | | | | linical | + +--------+ +---+-----+ + + + | Note: Pt will | | check CBG's daily x1 | | Pt will take Lantis as | | prescribed | + + documented as of this encounter Visit Diagnoses Not on filedocumented in this encounter"
--- OUTSIDE RECORDS SUMMARY | ~2019-02-17 | XMS | Encounter Summary ---
Demographics + + + | Address | [address] | | | [place] [address] | + + + | Home Phone [...] Team Providers + +------+ + | Care Collator Operator Name | Role | Phone | [...] | +--------+ + + + + | 11/13/ | Telephone | [facility] | Charline Banks, | Care Coordination | | 2019 | | [facility] | Case | | | | | [facility]ICAL [facility] [address] | Treatment Plant Mechanic-Clinical | | | | | [facility] [facility] [place], | | | | | | [place] [address] | | | | | | [phone] | | | +--------+ + + + [...] [place] | | | | | | [address] | | | | | | [phone] | | | | | | | | +--------+---------+ + + + | 02/26/ | Office | Urology | Lillie Fowler | | | 2018 | Visit | | [address]IE [address] | | | | | | [address] | | | | | | [place], [place] | | | | | | [address] | | | | | | [phone] | | | | | | | | +--------+---------+ + + + | 03/16/ | Office | Neurology | Theresa, | | | 2018 | Visit | | [address] | | | | | | [address] [place], | | | | | | [place] [address] | | | | | | [phone] | | | | | | | | +--------+---------+ + + + | 04/12/ | Office | Primary Care | Massimo Ramos | | | 2019 | Visit | | MD [address] | | | | | | [place] | | | | | | [address] | | | | | | | | +--------+---------+ + + + | 10/03/ | Office | Neurology | Fabián Carias MD | | | 2019 | Visit | | [address] | | | | | | [place] | | | | | | [address] | | | | | | | [...] | | | care | | | Treatment Plant Mechanic-C | | | | | | | [...] | | | care | | | Treatment Plant Mechanic-C | | | | | | | [...] | | | care | | | Treatment Plant Mechanic-C | | | | | | | [...] | | | care | | | Treatment Plant Mechanic-C | | | | | | | [...]
--- OUTSIDE RECORDS SUMMARY | ~2019-02-17 | XMS | Encounter Summary ---
Demographics + + + | Address | [address] | | | [place] [address] | + + + | Home Phone [...] Team Providers + +------+ + | Care X Ray Developing 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 Name | Role | Phone | + +------+ + | Ryan Gutiérrez MD | PCP | | + +------+ + Encounter Details +--------+ + + + + | Date | Type | Department | Care Team | Description | +--------+ + + + + | 09/06/ | Hospital | [facility] | Scott De Oliveira | | | 2016 | Encounter | [facility] | DO [address] | | | | | OSTOMY [address] | [address] | | | | | [address] [place], | [facility], [place] | | | | | [place] [address] | [address] | | | | | [phone] | [phone] | | | | | | | [...] [place] | | | | | | [address] | | | | | | [phone] | | | | | | | | +--------+---------+ + + + | 02/26/ | Office | Urology | Lillie Fowler | | | 2018 | Visit | | [address]IE Lopez [address] | | | | | | [address] | | | | | | [place] | | | | | | [address] | | | | | | [phone] | | | | | | | | +--------+---------+ + + + | 03/16/ | Office | Neurology | Theresa, | | | 2018 | Visit | | [address] | | | | | | [address] [place], | | | | | | [place] [address] | | | | | | [phone] | | | | | | | | +--------+---------+ + + + | 04/12/ | Office | Primary Care | Massimo Ramos | | | 2019 | Visit | | MD Fer [address] | | | | | | [place] | | | | | | [address] | | | | | | | | +--------+---------+ + + + | 10/03/ | Office | Neurology | Fabián Carias MD | | | 2019 | Visit | | [address] | | | | | | [place] | | | | | | [address] | | | | | | | [...] | | | care | | | Photo 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-C | | | | | [...] | | | care | | | Photo 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-C | | | | | [...] | | | care | | | Photo 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-C | | | | | [...] | | | care | | | Photo 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-C | | | | | | | linical | + +--------+ +---+-----+ + + + | Note: Pt will | | check CBG's daily x1 | | Pt will take Lantis as | | prescribed | + + documented as of this encounter Visit Diagnoses Not on filedocumented in this encounter"
--- OUTSIDE RECORDS SUMMARY | ~2019-02-17 | XMS | Encounter Summary ---
Demographics + + + | Address | [address] | | | [place] [address] | + + + | Home Phone [...] Team Providers + +------+ + | Care Steward/Stewardess Second Class Name | Role | Phone | + [...] diabetes | | 2019 | | [facility] | [address] | mellitus with other | | | | MEDICAL CLINIC [address] | [address] [place], [place] | specified | | | | [address] [place], | [address] | complication, | | | | [place] [address] | | without long-term | | | | [phone] | | current use of | | [...] [place] | | | | | | [address] | | | | | | [phone] | | | | | | | | +--------+---------+ + + + | 02/26/ | Office | Urology | Lillie Fowler | | | 2018 | Visit | | [address] | | | | | | [address] | | | | | | [place], [place] | | | | | | [address] | | | | | | [phone] | | | | | | | | +--------+---------+ + + + | 03/16/ | Office | Neurology | Theresa, | | | 2018 | Visit | | [address] | | | | | [address] [place], | | | | | | [place] [address] | | | | | | [phone] | | | | | | | | +--------+---------+ + + + | 04/12/ | Office | Primary Care | Massimo Ramos | | | 2019 | Visit | | MD [address] | | | | | | [place] | | | | | | [address] | | | | | | | | +--------+---------+ + + + | 10/03/ | Office | Neurology | Fabián Carias MD | | | 2019 | Visit | | [address] | | | | | | [place] | | | | | | [address] | | | | | | | [...] | | | | | | insulin ([facility]) | | + +------+--------+ + + | [...] | | | care | | | Technical Writer And Editor-C | | | | | | | [...] | | | care | | | Technical Writer And Editor-C | | | | | | | [...] | | | care | | | Technical Writer And Editor-C | | | | | | | [...] | | | care | | | Technical Writer And Editor-C | | | | | | | [...]
--- OUTSIDE RECORDS SUMMARY | ~2019-02-17 | XMS | Encounter Summary ---
Demographics + + + | Address | [address] | | | [place] [address] | + + + | Home Phone [...] Team Providers + +------+ + | Care Banking Teacher Name | Role | Phone | + [...] + + + + | 04/22/ | Telephone | [place] [facility]RISTI[facility] | Yesenia Ortez, | Lab Results | | 2018 | | [facility] | REGISTERED NURSE AMBULATORY | | | | | [facility] [address] | | | | | | [address] [facility] [place], | | | | | | [place] [address] | | | | | | [phone] | | | +--------+ + + + [...] [place] | | | | | | [address] | | | | | | [phone] | | | | | | | | +--------+---------+ + + + | 02/26/ | Office | Urology | Lillie Fowler | | | 2018 | Visit | | LILLIE Lopez [address] | | | | | | [address] | | | | | | [place], [place] | | | | | | [address] | | | | | | [phone] | | | | | | | | +--------+---------+ + + + | 03/16/ | Office | Neurology | Theresa, | | | 2018 | Visit | | SHONDA M[address]ney [address] | | | | | [address] [place], | | | | | | [place] [address] | | | | | | [phone] | | | | | | | [...] [place] | | | | | | [address] | | | | | | | [...] | | | care | | | Projection Printer-C | | | | | | | [...] | | | care | | | Projection Printer-C | | | | | | | [...] | | | care | | | Projection Printer-C | | | | | | | [...] | | | care | | | Projection Printer-C | | | | | | | linical | + +--------+ +---+-----+ + + + | Note: Pt will | | check CBG's daily x1 | | Pt will take Lantis as | | prescribed | + + documented as of this encounter Visit Diagnoses Not on filedocumented in this encounter"
--- OUTSIDE RECORDS SUMMARY | ~2019-02-17 | XMS | Encounter Summary ---
Demographics + + + | Address | [address] | | | [place] [address] | + + + | Home Phone [...] | + + +---------+ + | Ella Mcfaddne | ECON | Unknown | | + + +---------+ + | Juan Gill | ECON | Unknown | | + + +---------+ + Care Team Providers + +------+ + | Care Carbon Electrodes Supervisor Name | Role | Phone | [...] [place], [place] | | | | | [place] | [place] | [address] Phone: | | | | | &/SENS 1-2 | [address] | [phone] | | | | | NRV CNDJ | Phone: | Fax: | | | | | PRECONF | [phone] | [phone] | | | | | [place] | Fax: | | | | | | [place] NEEDLE | [phone] | | | | | | EMG EA | | | | | | | EXTREMITY | | | | | | | W/PARASPINL | | | | | | | AREA LIMITED | | | | | | | [place] EMG, | | | | | | | NEEDLE, TWO | | | | | | | [place] | | | | | | | MOTOR &/SENS | | | | | | | 9-10 NRV | | | | | | | CNDJ PRECONF | | | | | | | [place]TR[place]DE | | | | | | | [place] | | | | | | | [...] | syndrome, bilateral | | | | [address], | [place] | (Primary Dx); DDD | | | | [place] [address] | [phone] | (degenerative disc | | | | [phone] | | disease), cervical; | | | [...] Guevara MD - 05/31/2013 12:24 PM PST [facility], Physiatry [facility] [address] [place] [address] Test Date: 05/31/2013 Patient Name: Geraldo Mcfadden : 1940 Physician: Mor Guevara MD MR #: [id number] Sex: Male Referring Physician: HISTORY: The patient [...] L Edi (m/s) R Edi (m/s) L-R Eid (m/s) Radial Anti Sensory (Base 1st Digit) [...] hesitate to call. Mor Guevara MD Fellow, [employer]. documented [...] [place] | | | | | | [address] | | | | | | [phone] | | | | | | | | +--------+---------+ + + + | 02/26/ | Office | Urology | Lillie Fowler | | | 2018 | Visit | | LILLIE Lopez [address] | | | | | | [address] | | | | | | [place], [place] | | | | | | [address] | | | | | | [phone] | | | | | | | | +--------+---------+ + + + | 03/16/ | Office | Neurology | Theresa, | | | 2018 | Visit | | SHONDA M[address] | | | | | [address] [place], | | | | | | [place] [address] | | | | | | [phone] | | | | | | | | +--------+---------+ + + + | 04/12/ | Office | Primary Care | Massimo Ramos | | | 2019 | Visit | | MD Fer [address] | | | | | | [place] | | | | | | [address] | | | | | | | | +--------+---------+ + + + | 10/03/ | Office | Neurology | Fabián Carias MD | | | 2019 | Visit | | [address] | | | | | | [place] | | | | | | [address] | | | | | | | [...] | | | care | | | Delivery Truck Driver-C | | | | | | [...] | | | care | | | Delivery Truck Driver-C | | | | | | [...] | | | care | | | Delivery Truck Driver-C | | | | | | [...] | | | care | | | Delivery Truck Driver-C | | | | | | [...]
--- OUTSIDE RECORDS SUMMARY | ~2019-02-17 | XMS | Encounter Summary ---
Demographics + + + | Address | [address] | | | [place] [address] | + + + | Home Phone [...] Team Providers + +------+ + | Care Legal File Clerk Name | Role | Phone | [...] | +--------+ + + + + | 07/14/ | Hospital | [facility] | Richard Castillo | Acute renal failure, | | 2019 - | Encounter | HOSP[facility] MED SURG | MD [address] | unspecified acute | | | | [address] [place] | [address] | renal failure type | | 07/17/ | | [place], [place] | [place] [address] | ([facility]) (Primary Dx); | | 2018 | | [address] | [phone] | Type 2 diabetes | | | | [phone] | | mellitus with | | | | | Macario Coulter | hyperglycemia, with | | | | | MD Magdalena [address] | long-term current | | | | | [address] | use of insulin | | | | | [place] [address] | ([facility]); VIKAS (acute | | | | | [phone] | kidney injury) | | | | | | ([facility]); 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, with | | | | | | long-term current | | | | | | use of insulin ([facility]) | +--------+ + + + + Social [...] + + + | Blood Pressure | 143/80 | 07/17/2018 9:23 AM | | | | | PDT | | + + + + + | Pulse | 79 | 07/17/2018 9:36 AM | | | | | PDT | | + + + + + | Temperature | 36.8 C (98.24 F) | 07/17/2018 7:57 AM | | | | | PDT | | + + + + + | Respiratory Rate | 16 | 07/17/2018 7:57 AM | | | | | PDT | | + + + + + | Oxygen Saturation | 97% | 07/17/2018 9:36 AM | after 1 minute | | | | PDT | pursed lip breathing | + + + + + | Inhaled Oxygen | - | - | | | Concentration | | | | + + + + + | Weight | 90.7 kg (200 lb) | 07/14/2018 11:50 AM | | | | | PDT | | + + + + + | Height | 167.6 cm (5' 6") | 07/14/2018 11:50 AM | | | | | PDT | | + + + + + | Body Mass Index | 32.28 | 07/14/2018 11:50 AM | | | | | PDT [...] documented as of this encounter Discharge Summaries Macario Coulter MD - 07/17/2018 10:48 AM PDTFormatting of this note might be differ ent from the original. MEDICAL HOSPITALIST DISCHARGE SUMMARY Pt. Name/Age/: Geraldo Mcfadden 78 y.o. 1940 Date of Admission: 07/14/2018 Date of Discharge: 07/17/2018 PCP: Horacio Silvestre Admitting Diagnosis: Acute kidney injury Dehydration Pneumonia with acute hypoxic respiratory failure Discharge Diagnosis: Principal Problem: VIKAS (acute kidney injury) Active Problems: Type 2 diabetes mellitus with diabetic polyneuropathy, with long-term current use of insu gely Pneumonia Dehydration Resolved Problems: * No resolved hospital problems. 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 analgesic 06/27/2017 Current use of beta marly 06/30/2017 Panlobular emphysema 08/08/2017 Atherosclerosis of [place] coronary artery of [place] heart without angina pectoris 08/08 On potassium wasting diuretic therapy 08/08/2017 Primary osteoarthritis involving multiple joints 09/30/2017 Vitamin D deficiency disease 09/30/2017 History of bacterial pneumonia 03/16/2018 Insomnia secondary to chronic pain 04/08/2018 Hx of transient ischemic attack (TIA) 04/10/2018 Pneumonia 05/26/2018 Coordination of complex care 06/01/2018 VIKAS (acute kidney injury) 07/08/2018 Dehydration 07/08/2018 Resolved Ambulatory Problems Diagnosis Date Noted Essential hypertension 03/07/2017 Community acquired pneumonia, unspecified laterality 08/15/2017 Neck pain, chronic 12/15/2017 Chronic bilateral low back pain without sciatica 12/15/2017 Generalized weakness 01/09/2018 Dehydration 01/09/2018 Chronic bilateral low back pain without sciatica 02/19/2018 Hypoxia 03/16/2018 Neutrophilic leukocytosis 03/17/2018 retirement current use of non-steroidal anti-inflammatories (NSAID) 04/08/2018 Syncope and collapse 05/19/2018 Acute renal failure (ARF) 05/26/2018 Hypomagnesemia 05/26/2018 Diabetic polyneuropathy associated with type 2 diabetes mellitus 06/27/2018 Orthostatic hypotension 07/08/2018 Leukocytosis 07/08/2018 Past Medical History: Diagnosis Date Carpal tunnel syndrome, bilateral 05/31/2013 DDD (degenerative disc disease), cervical 05/22/2013 Diabetes mellitus GERD (gastroesophageal reflux disease) Gout Hiatal hernia Hypertension Melanoma Melanoma 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, left Neck pain, chronic 05/22/2013 Neuropathy Paresthesias - both hands 05/22/2013 Thyroid disease Medications Reconciled upon Discharge are: Discharge Medications New Medications Details clindamycin 300 MG capsule Take 1 capsule by mouth 4 times daily for 5 days. aka: CLEOCIN insulin lispro 100 units/mL injection (vial) Inject 0-6 Units under the skin 4 times daily (with meals and nightly). aka: humaLOG polyethylene glycol packet Take 1 diluted packet by mouth Daily as needed for Constipation. aka: MIRALAX Changed Medications Details insulin glargine 100 units/mL injection (vial) Inject 18 Units under the skin nightly. What changed: how much to take aka: LANTUS losartan 50 mg tablet Take 1 tablet by mouth 2 times daily. What changed: when to take this aka: PRISCILLA Unchanged Medications Details aspirin 325 mg tablet [...] nightly as needed for Allergies. aka: FLONASE levothyroxine 75 MCG tablet Take 3 tablets by mouth every morning (before breakfast) for 30 days. aka: SYNTHROID loperamide 2 mg capsule Take 2 mg by mouth 4 times daily as needed for Diarrhea. aka: IMODIUM omeprazole 20 mg capsule Take 1 capsule by mouth every morning (before breakfast). aka: priLOSEC ondansetron 4 mg disintegrating tablet Take 1 tablet by mouth every 8 hours as needed for Nausea. aka: ZOFRAN ODT pregabalin 300 MG capsule Take 1 capsule by mouth every evening. aka: LYRICA tamsulosin 0.4 mg Caps Take 1 capsule by mouth nightly. aka: FLOMAX testosterone 2 mg/[address] 1 patch onto the skin nightly. aka: ANDRODERM traZODone 50 mg tablet Take 2 tablets by mouth nightly. aka: DESYREL urea 40 % Crea Apply to affected areas daily aka: CARMOL Discontinued Medications colchicine 0.6 mg tablet hydroCHLOROthiazide 25 mg tablet oxyCODONE 30 MG immediate release tablet aka: ROXICODONE Clinical Resume: # VIKAS - Admitted with recurrent acute kidney injury and dehydration. He responded well to IVF res uscitation. Appetite improved and he has been taking adequately PO for 24 hours prior to dis charge. It is still unclear why he became dehydrated so quickly at home. He described drench ing sweats at home and they have not occurred here. That may have contributed to dehydration . We stopped HCTZ and reduced Lantus dosing to avoid hypoglycemia. [facility] and be monitored there and after he goes home we have arranged for a Home Health vi sit to assess home situation. # pneumonia - this was a clinical diagnosis based on a leukocytosis, self report of drenching sweats, and new hypoxia requiring oxygen replacement and an equivocal CXR. Nasal screen is positive for MRSA. Clinically he has improved with Rocephin and Clindamycin and he has been cleared by speech therapy. Will continue Clindamycin to Complete 7 days of antibiotics. # off balance - MRI brain is negative for stroke. - he does well with a cane # HTN - we stopped HCTZ and are increasing Losartan to BID dosing # DM - we decreased Lantus from 35 units to 18 units on admit and in spite of eating well his b lood glucose is 130s. Will continue with the reduced dose of Lantus. Wonder if he was having hypoglycemia at home? Physical Examination: General: Alert and oriented HEENT: symmetric Lymph: none Neck: supple Cardiovascular: Regular S1, S2 Respiratory: clear Abdomen: Soft, obese Extremities: No edema Skin: intact Neurological: Non-focal Psychiatric: Affect normal Significant tests and procedures during admission: Xr Chest Pa And Lateral Result Date: 07/15/2018 EXAMINATION: XR CHEST PA AND LATERAL HISTORY: pneumonia COMPARISON STUDY: July 14, 2018, Fe bruary 2017 FINDINGS: The lungs are well ventilated. Mild prominence of central pulmona ry vessels. No pleural effusion. No pneumothorax. Cardiomediastinal silhouette is normal. No acute osseous process. Flowing thoracic spine osteophytes. Prior cholecystectomy. IMPRESSION: No acute cardiopulmonary process. Query pulmonary hypertension. Diffuse idiopat hic skeletal hyperostosis. Dictated by: Massimo Alba Xr Chest Pa And Lateral Result Date: 07/08/2018 EXAMINATION: XR CHEST PA AND LATERAL HISTORY: Follow up COMPARISON STUDY: Chest radiograph 07/08/2018. CT thorax 05/27/2018. FINDINGS: No lobar consolidation, effusion, or nodule is seen. Heart size within normal limits. Atherosclerosis coronary arteries present best appr eciated on prior CT study. No acute bone finding. IMPRESSION: 1. No acute finding. 2. Atherosclerosis coronary arteries. Dictated by: Troy Lawrence Xr Chest Pa And Lateral Result Date: 07/08/2018 EXAMINATION: XR CHEST PA AND LATERAL HISTORY: WEAKNESS COMPARISON STUDY: CT abdomen pelvis 07/05/2018. CT thorax 05/27/2017. FINDINGS: Patient is lordotic in position which does obsc ure portions of anatomy. No lobar consolidation, effusion, or nodule seen. Heart size with in normal limits. Atherosclerosis coronary arteries present best appreciated on prior CT st udy. No acute bone finding. IMPRESSION: Limited study related to patient positioning. No definite acute finding. Ather osclerosis coronary arteries. Dictated by: Troy Lawrence Mri Brain Wo Contrast Result Date: 07/16/2018 EXAMINATION: MRI BRAIN WO CONTRAST HISTORY: off balance COMPARISON STUDY: May 21, 2018 May 21, 2018 TECHNIQUE: Multiplanar multi sequence MRI of the brain is performed witho ut contrast. FINDINGS: Diffusion-weighted images show no evidence of restricted diffusion. T he reinoso-white matter interface is intact. No acute intracranial hemorrhage, mass lesion, or midline shift. Basilar cisterns are patent. Ventricles are symmetric. Sulci are prominent bu t proportional to the ventricles. Mild cerebellar volume loss. Major flow voids are present. Remote right cerebellar lacunar infarct. Mild confluent periventricular white matter T2 hyp erintensity. There a few scattered deep and subcortical frontal white matter punctate hyper intensities. Mild maxillary sinus mucosal thickening. Mastoid air cells are clear.. The pitu itary gland is unremarkable. Corpus callosum is unremarkable. Brainstem is unremarkable. IMPRESSION: 1. No acute intracranial abnormality 2. Global volume loss. 3. Mild white matte r disease, likely related to chronic small vessel ischemia. 4. Mild maxillary sinus mucosal thickening. Dictated by: Massimo Alba 19 8:[address] Abdomen Pelvis W Contrast Result Date: 07/05/2018 EXAMINATION: CT ABDOMEN PELVIS W CONTRAST HISTORY: DIARRHEA (ADULT) COMPARISON STUDY: CT t horax 05/27/2018. CT chest abdomen pelvis 12/25/2016. TECHNIQUE: 5 mm axial slices were acq uired through the abdomen and pelvis with contrast. DOSE REPORT: DLP is 910.73 mGy-cm automa rosemarie exposure control was utilized. FINDINGS: Genitourinary: Right renal 1.8 cm cyst redemons trated. Contrast media is present within the ureters and renal pelvis which limits evaluati on for calcified calculi. No hydronephrosis, or solid enhancing renal lesions seen. No foc al bladder wall thickening. Prostate volume is unremarkable.. Gastrointestinal: Wall thicke guzman evident at the rectosigmoid colon with mild mucosal enhancement. This finding best see n on image 288. Evidence of colon anastomosis sigmoid region. Diverticulosis present witho ut diverticulitis. Anastomosis noted at the right abdomen involving the distal small bowel. Fluid-filled loops of nondilated small bowel are present. The gallbladder is absent. Mild hypoattenuation without mass effect at the right liver adjacent to the falciform ligament c ompatible with fatty infiltration. Spleen volume is normal. Small hiatal hernia present. A t the pancreatic head/body a rounded hypoattenuating 11 mm lesion is present. On the 2017 s tudy an approximate 8 mm hypoattenuating lesion was present in this region.. No pancreatic d uctal dilatation is seen. Adrenal glands appear unremarkable. Stomach is nondistended. Musc uloskeletal: Multilevel disc and facet degenerative changes lumbar spine present. Posterior ly projecting endplate osteophyte noted at several levels resulting in canal narrowing. No acute bone finding. No lytic or blastic bone lesions.. Retroperitoneum: Atherosclerosis of aorta without aneurysm. No adenopathy.. Lung base: Heart size normal. Atherosclerosis luz maria nary arteries present. Emphysematous changes demonstrated.. IMPRESSION: 1. Thickening apparent at the rectosigmoid colon wall. This finding could rela te to infectious, inflammatory, or neoplastic process. Colonoscopy recommended. 2. Divertic ulosis without evidence of diverticulitis. 3. Evidence of prior bowel surgery as detailed ab ove. 4. Atherosclerosis coronary arteries. 5. Emphysematous changes. 6. Small hiatal hernia. 7. Hypoattenuating lesion at the pancreatic head/body region. 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 Gastroenterology consult recommended. 8. Disc and facet degenerative change s lumbar spine. Posterior projecting endplate osteophyte is present at several lumbar level s resulting in canal narrowing. No prior head no cracking and/or with hay . Dictated by: Karen Lawrence Us Renal Complete Result Date: 07/08/2018 EXAMINATION: US RENAL COMPLETE HISTORY: Acute renal failure COMPARISON STUDY: CT abdomen pe lvis 07/05/2018. FINDINGS: Both kidneys have been examined. Anechoic 1.8 cm lesion noted on the right compatible with cyst. Right length 10 cm. Cortical thickness approximately 1.4 cm. The echogenicity is decreased compared to adjacent liver. No hydronephrosis. Left kidn ey 11.9 cm. Cortical thickness approximately 1.2 cm. No hydronephrosis. IMPRESSION: 1. No acute finding. 2. Right renal cyst. Dictated by: Troy Lawrence Electronic ally Signed by: Troy Lawrence on 07/08/2018 2:26 PM Xr Chest Ap Portable Result Date: 07/14/2018 EXAMINATION: XR CHEST AP PORTABLE HISTORY: WEAKNESS COMPARISON STUDY: July 08, 2018 FINDING S: The lungs are mildly hypoventilated. Left basilar scarring versus atelectasis laterally. No pleural effusion. No pneumothorax. Cardiomediastinal silhouette is normal. No acute osseous process. Atherosclerosis of the descending aorta. Query small hiatal hernia. IMPRESSION: Mild hypoventilation. Left basilar scarring versus atelectasis. Atherosclerosis . Query small hiatal hernia. Dictated by: Massimo Alba Recommended follow up labs/imaging/tests: Pending inpatient studies at time of discharge: None Disposition: Senior Living Follow-Up Plans: Horacio Silvestre DO [address] [place] [address] In 1 week Electronically signed by: Macario Coulter 07/17/2018 10:48 CC [facility] Time spent discharging this patient: 40 minutes documented in this encounter Discharge Instructions AttachmentsThe following attachments cannot be sent through Care Everywhere.Dehydration (Ad ult) (Swiss)Blood Sugar, Low; Hypoglycemia (Swiss)Adult, Pneumonia (Swiss)documented i n this encounter Medications at Time of Discharge [...] documented as of this encounter Progress Notes Coulter, Clarence R, PharmD - 07/17/2018 11:06 AM PDTFormatting of this note might be dif ferent from the original. PHARMACY SERVICES: DISCHARGE MEDICATION TEACHING Geraldo Mcfadden is a 78 y.o. male admitted on 07/14/2018 for VIKAS and was discharged on 0 07/17/2018. Discharge Medications New Medications Details clindamycin 300 MG capsule Notes to patient: Antibiotic for infection Take 1 capsule by mouth 4 times daily for 5 days. aka: CLEOCIN insulin lispro 100 units/mL injection (vial) Notes to patient: Diabetes management Inject 0-6 Units under the skin 4 times daily (with meals and nightly). aka: humaLOG polyethylene glycol packet Take 1 diluted packet by mouth Daily as needed for Constipation. aka: MIRALAX Changed Medications Details insulin glargine 100 units/mL injection (vial) Notes to patient: Diabetes management Inject 18 Units under the skin nightly. What changed: how much to take aka: LANTUS losartan 50 mg tablet Notes to patient: HTN Take 1 tablet by mouth 2 times daily. What changed: when to take this aka: COZAAR Unchanged Medications Details aspirin 325 mg tablet Notes to patient: Heart Health Take 325 mg by mouth every morning. atorvaSTATin 10 mg tablet Notes to patient: High Cholesterol Take 1 tablet by mouth every morning. aka: LIPITOR cholecalciferol 2000 units Tabs Notes to patient: Supplement Take 2,000 Units by mouth every morning. aka: VITAMIN D-3 clopidogrel 75 mg tablet Notes to patient: Antiplatelet Take 75 mg by mouth every morning. aka: PLAVIX cyanocobalamin 1000 MCG tablet Notes to patient: Supplement Take 1 tablet by mouth every morning. aka: VITAMIN B-[address] capsule Take 1 capsule by mouth every morning. aka: CYMBALTA fluticasone 50 mcg/nasal spray 2 sprays by Nasal route nightly as needed for Allergies. aka: FLONASE levothyroxine 75 MCG tablet Notes to patient: Thyroid Supplement Take 3 tablets by mouth every morning (before breakfast) for 30 days. aka: SYNTHROID loperamide 2 mg capsule Take 2 mg by mouth 4 times daily as needed for Diarrhea. aka: IMODIUM omeprazole 20 mg capsule Notes to patient: GERD Take 1 capsule by mouth every morning (before breakfast). aka: priLOSEC ondansetron 4 mg disintegrating tablet Take 1 tablet by mouth every 8 hours as needed for Nausea. aka: ZOFRAN ODT pregabalin 300 MG capsule Take 1 capsule by mouth every evening. aka: LYRICA tamsulosin 0.4 mg Caps Notes to patient: BPH Take 1 capsule by mouth nightly. aka: FLOMAX testosterone 2 mg/24 hr Notes to patient: Testosterone Replacement Place 1 patch onto the skin nightly. aka: ANDRODERM traZODone 50 mg tablet Notes to patient: Sleep Take 2 tablets by mouth nightly. aka: DESYREL urea 40 % Crea Notes to patient: Skin care Apply to affected areas daily aka: CARMOL Discontinued Medications colchicine 0.6 mg tablet hydroCHLOROthiazide 25 mg tablet oxyCODONE 30 MG immediate release tablet aka: ROXICODONE Patient was discharged to SNF. Medication list was updated with appropriate indications, pr inted, and signed accordingly. Electronically signed by: Clarence Coulter, PharmD 07/17/2018 11:07 Macario Schmidt MD - 07/16/2018 3:42 PM PDT MEDICAL HOSPITALIST TEAM PROGRESS NOTE Name:Geraldo Mcfadden Hospital Day # 2 Reason for admission and continued stay: Geraldo Mcfadden is a 78 y.o. male hospitalized for VIKAS (acute kidney injury) ([facility]) Assessment and Plan: Principal Problem: VIKAS (acute kidney injury) Active Problems: Type 2 diabetes mellitus with diabetic polyneuropathy, with long-term current use of insu gely Pneumonia # VIKAS - Acute kidney injury is improving with IV fluid replacement. He is eating without difficul ty. Cr at baseline. # pneumonia - no further sweats - complete 7 days of Abx # MRI of the brain is negative for stroke Speech therapy for swallow eval anticipated days until discharge and disposition: 1; to SNF Subjective/ROS: He is eating without difficulty. He denies any further sweats, chills, or chest pain. No cough. Occasionally chokes on food. Denies any nausea or diarrhea. Objective: Most recent vital signs: BP 134/79 | Pulse 70 | Temp 36.6 C (97.88 F) (Oral) | Resp 18 | Ht 1.676 m (5' 6") | Wt 90.7 kg (200 lb) | SpO2 97% | BMI 32.28 kg/m Vital sign ranges for last 24hrs: Input and output for last 24hrs: Temp: [36.3 C (97.34 F)-36.8 C (98.24 F)] 36.6 C (97.88 F) Pulse: [64-80] 70 Resp: [18-24] 18 BP: (130-148)/(63-81) 134/79 SpO2 Av.9 % Min: 96 % Max: 100 % Flow (L/min) Av.3 Min: 2 Max: 3 07/14 1900 - 07/16 07 In: 4135 [P.O.:1640; I.V.:2295] Out: 2650 [Urine:2650] Physical Examination: General: Alert and interactive Neck: supple Cardiovascular: RRR Respiratory: Clear bilateral Abdomen: Soft and non-tender Extremities: No edema; no cyanosis Skin: intact Psychiatric: Intact affect Physical Exam Last 8 glucose values: Recent Labs Lab 07/16/18 1148 07/16/18 0721 07/16/18 0535 07/15/18202607/15/18 1648 07/15/18 1130 07/15/18 0734 07/15/18 0528 07/14/18202807/14/18 1657 07/14/18 1218 07/10/18 0600 POCGLU 120* 128* -- 110 137* 147* 116* -- 205* 214* -- < > -- GLU -- -- 115* -- -- -- -- 125* -- -- 215* -- 101 < > = values in this interval not displayed. Labs/Studies: Recent Labs Lab 07/16/18 0535 07/15/18 0528 07/14/18 1218 07/10/18 0600 WBC 9.4 10.5 16.6* 8.4 HGB 12.1* 11.2* 15.4 12.2* HCT 36.2* 34.0* 46.6 36.3* PLT 137* Adequate | 129* 180 115* Recent Labs Lab 07/16/18 0535 07/15/18 0528 07/14/18 1218 07/10/18 0600 NA 137 136 138 141 K 3.9 3.7 3.8 3.2* CL 102 104 99 106 CO2 25 23 25 22* BUN 21 28* 31* 24 CREA 1.32 1.71* 2.74* 1.22 GLU 115* 125* 215* 101 MG 1.8 1.3* -- 1.4* CALCIUM 8.0* 7.3* 9.3 8.0* BILITOT -- -- 0.8 -- AST -- -- 45* -- ALT -- -- 72* -- ALKPHOS -- -- 127* -- ALBUMIN -- -- 3.8 -- Pertinent micro results: n/a Xr Chest Pa And Lateral Result Date: 07/15/2018 EXAMINATION: XR CHEST PA AND LATERAL HISTORY: pneumonia COMPARISON STUDY: July 14, 2018, Fe bruary 2017 FINDINGS: The lungs are well ventilated. Mild prominence of central pulmona ry vessels. No pleural effusion. No pneumothorax. Cardiomediastinal silhouette is normal. No acute osseous process. Flowing thoracic spine osteophytes. Prior cholecystectomy. IMPRESSION: No acute cardiopulmonary process. Query pulmonary hypertension. Diffuse idiopat hic skeletal hyperostosis. Dictated by: Massimo Alba Mri Brain Wo Contrast Result Date: 07/16/2018 EXAMINATION: MRI BRAIN WO CONTRAST HISTORY: off balance COMPARISON STUDY: May 21, 2018 May 21, 2018 TECHNIQUE: Multiplanar multi sequence MRI of the brain is performed witho ut contrast. FINDINGS: Diffusion-weighted images show no evidence of restricted diffusion. T he reinoso-white matter interface is intact. No acute intracranial hemorrhage, mass lesion, or midline shift. Basilar cisterns are patent. Ventricles are symmetric. Sulci are prominent bu t proportional to the ventricles. Mild cerebellar volume loss. Major flow voids are present. Remote right cerebellar lacunar infarct. Mild confluent periventricular white matter T2 hyp erintensity. There a few scattered deep and subcortical frontal white matter punctate hyper intensities. Mild maxillary sinus mucosal thickening. Mastoid air cells are clear.. The pitu itary gland is unremarkable. Corpus callosum is unremarkable. Brainstem is unremarkable. IMPRESSION: 1. No acute intracranial abnormality 2. Global volume loss. 3. Mild white matte r disease, likely related to chronic small vessel ischemia. 4. Mild maxillary sinus mucosal thickening. Dictated by: Massimo Alba 19 8:07 AM ECG: Medications reviewed: yes Electronically signed by: Macario Coulter 07/16/2018 15:42 CC [facility] Portions of this chart may have been created with voice recognition software. Occasional wo rd or "sound-alike" substitutions may have occurred due to the inherent limitation of voice recognition software. Read the chart carefully and recognize, using context, where these sub stitutions have occurred. hGlenroy pandya MD - 07/15/2018 4:06 PM PDTFormatting of this note might be different from the or iginal. MEDICAL HOSPITALIST TEAM PROGRESS NOTE Name:Geraldo Mcfadden Hospital Day # 1 Reason for admission and continued stay: Geraldo Mcfadden is a 78 y.o. male hospitalized for VIKAS (acute kidney injury) ([facility]) Assessment and Plan: Principal Problem: VIKAS (acute kidney injury) Active Problems: Type 2 diabetes mellitus with diabetic polyneuropathy, with long-term current use of insu gely Pneumonia Acute kidney injury is improving with IV fluid replacement. He is eating without difficulty . He was having sweats at home, but none here so far. We will discontinue IV fluids and monitor his progress with oral intake. MRI of the brain to exclude stroke due to earlier imbalance. Continue Abx for possible pneumonia Speech therapy for swallow eval anticipated days until discharge and disposition: 1-2 Subjective/ROS: He is eating without difficulty. He denies any further sweats, chills, or chest pain. No cough. Occasionally chokes on food. Denies any nausea or diarrhea. PT reports that earlier he hada tendency to fall backward while standing. Concerned about p ossible stroke. Objective: Most recent vital signs: BP 94/60 | Pulse 71 | Temp 36.9 C (98.42 F) (Oral) | Resp 18 | Ht 1.676 m (5' 6") | Wt 90.7 kg (200 lb) | SpO2 99% | BMI 32.28 kg/m Vital sign ranges for last 24hrs: Input and output for last 24hrs: Temp: [36.5 C (97.7 F)-36.9 C (98.42 F)] 36.9 C (98.42 F) Pulse: [70-76] 71 Resp: [16-19] 18 BP: (94-103)/(45-60) 94/60 SpO2 Av.3 % Min: 91 % Max: 99 % Flow (L/min) Av Min: 3 Max: 3 07/13 1900 - 07/15 699 In: 7552 [P.O.:1600; I.V.:3902] Out: 725 [Urine:725] Physical Examination: General: Alert and interactive Neck: supple Cardiovascular: RRR Respiratory: Clear bilateral Abdomen: Soft and non-tender Extremities: No edema; no cyanosis Skin: intact Neurological: No pronator drift. 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 Labs/Studies: Recent Labs Lab 07/15/1852707/14/18121707/10/1859907/09/18626 WBC 10.5 16.6* 8.4 10.4 HGB 11.2* 15.4 12.2* 12.9* HCT 34.0* 46.6 36.3* 38.7* PLT Adequate | 129* 180 115* 110* Recent Labs Lab 07/15/1852707/14/188 07/10/1859907/09/18626 NA 136 138 141 141 K 3.7 3.8 3.2* 3.5 CL 104 99 106 107 CO2 23 25 22* 22* BUN 28* 31* 24 43* CREA 1.71* 2.74* 1.22 2.19* GLU 125* 215* 101 130* MG 1.3* -- 1.4* -- CALCIUM 7.3* 9.3 8.0* 7.6* BILITOT -- 0.8 -- -- AST -- 45* -- -- ALT -- 72* -- -- ALKPHOS -- 127* -- -- ALBUMIN -- 3.8 -- -- Pertinent micro results: n/a Xr Chest Pa And Lateral Result Date: 07/15/2018 EXAMINATION: XR CHEST PA AND LATERAL HISTORY: pneumonia COMPARISON STUDY: July 14, 2018, Fe bruary 2017 FINDINGS: The lungs are well ventilated. Mild prominence of central pulmona ry vessels. No pleural effusion. No pneumothorax. Cardiomediastinal silhouette is normal. No acute osseous process. Flowing thoracic spine osteophytes. Prior cholecystectomy. IMPRESSION: No acute cardiopulmonary process. Query pulmonary hypertension. Diffuse idiopat hic skeletal hyperostosis. Dictated by: Massimo Alba Xr Chest Ap Portable Result Date: 07/14/2018 EXAMINATION: XR CHEST AP PORTABLE HISTORY: WEAKNESS COMPARISON STUDY: July 08, 2018 FINDING S: The lungs are mildly hypoventilated. Left basilar scarring versus atelectasis laterally. No pleural effusion. No pneumothorax. Cardiomediastinal silhouette is normal. No acute osseous process. Atherosclerosis of the descending aorta. Query small hiatal hernia. IMPRESSION: Mild hypoventilation. Left basilar scarring versus atelectasis. Atherosclerosis . Query small hiatal hernia. Dictated by: Massimo Alba : Medications reviewed: yes Electronically signed by: Macario Coulter 07/15/2018 16:06 CC [facility] Portions of this chart may have been created with voice recognition software. Occasional wo rd or "sound-alike" substitutions may have occurred due to the inherent limitation of voice recognition software. Read the chart carefully and recognize, using context, where these sub stitutions have occurred. arzad Coulter, PharmD - 07/14/2018 2:43 PM PDTMedication History Completed Medication history was completed using: -medication list from after visit summary (07/10/2018) Major discrepancies noted: Patient admitted four days after discharge (07/10/2018). Reviewe d discharge summary and completed medication reconciliation. Patient has taken oxycodone and blood pressure medications this AM. Please see [facility] med list for updated medication list. Electronically Signed by: Clarence Coulter PharmD 07/14/2018 14:43 documented in this encounter Plan of Treatment [...] [place] | | | | | | [address] | | | | | | [phone] | | | | | | | | +--------+---------+ + + + | 02/26/ | Office | Urology | Lillie Fowler | | | 2018 | Visit | | LILLIE [address] | | | | | | [address] | | | | | | [place], [place] | | | | | | [address] | | | | | | [phone] | | | | | | | | +--------+---------+ + + + | 03/16/ | Office | Neurology | Theresa, | | | 2018 | Visit | | SHONDA M[address] | | | [address] [place], | | | | | | [place] [address] | | | | | | [phone] | | | | | | | | +--------+---------+ + + + | 04/12/ | Office | Primary Care | Massimo Ramos | | | 2019 | Visit | | MD Fre [address] | | | | | [...] [place] | | | | | | [address] | | | | | | | | +--------+---------+ + + + + +------+--------+ + + | Name | Type | Priori | Associated Diagnoses | Date/Time | | | | ty | | | + +------+--------+ + + | ED INFORMATION | BRIT | Routin | | 07/14/2018 11:47 AM | | EXCHANGE | | e [...] | | | care | | | Data 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 | + +--------+ + + + | POC GLUCOSE | Routin | 07/16/2018 | | Results for this | | | e | 8:34 PM | | procedure are in the | | | | PDT | | results section. | + +--------+ + + + | POC GLUCOSE | Routin | 07/16/2018 | | Results for this | | | e | 4:29 PM | | procedure are in the | | | | PDT | | results section. | + +--------+ + + + | POC GLUCOSE | Routin | 07/16/2018 | | Results for this | | | e | 11:48 AM | | procedure are in the | | | | PDT | | results section. | + +--------+ + + + | URINALYSIS WITH | STAT | 07/16/2018 | | Results for this | | MICROSCOPIC WITH | | 8:31 AM | | procedure are in the | | CULTURE IF INDICATED | | PDT | | results section. | + +--------+ + + + | POC GLUCOSE | Routin | 07/16/2018 | | Results for this | | | e | 7:21 AM | | procedure are in the | | | | PDT | | results section. | + +--------+ + + + | DIFFERENTIAL, MANUAL | Routin | 07/16/2018 | | Results for this | | | e | 5:35 AM | | procedure are in the | | | | PDT | | results section. | + +--------+ + + + | CBC WITH | Routin | 07/16/2018 | | Results for this | | DIFFERENTIAL | e | 5:35 AM | | procedure are in the | | | | PDT | | results section. | + +--------+ + + + | MAGNESIUM | Routin | 07/16/2018 | | Results for this | | | e | 5:35 AM | | procedure are in the | | | | PDT | | results section. | + +--------+ + + + | BASIC METABOLIC | Routin | 07/16/2018 | | Results for this | | PANEL | e | 5:35 AM | | procedure are in the | | | | PDT | | results section. | + +--------+ + + + | POC GLUCOSE | Routin | 07/15/2018 | | Results for this | | | e | 8:27 PM | | procedure are in the | | | | PDT | | results section. | + +--------+ + + + | MRI BRAIN WO | Routin | 07/15/2018 | | Results for this | | CONTRAST | e | 6:46 PM | | procedure are in the | | | | PDT | | results section. | + +--------+ + + + | POC GLUCOSE | Routin | 07/15/2018 | | Results for this | | | e | 4:48 PM | | procedure are in the | | | | PDT | | results section. | + +--------+ + + + | POC GLUCOSE | Routin | 07/15/2018 | | Results for this | | | e | 11:30 AM | | procedure are in the | | | | PDT | | results section. | + +--------+ + + + | XR CHEST PA AND | Routin | 07/15/2018 | | Results for this | | LATERAL | e | 9:22 AM | | procedure are in the | | | | PDT | | results section. | + +--------+ + + + | POC GLUCOSE | Routin | 07/15/2018 | | Results for this | | | e | 7:34 AM | | procedure are in the | | | | PDT | | results section. | + +--------+ + + + | DIFFERENTIAL, MANUAL | Routin | 07/15/2018 | | Results for this | | | e | 5:28 AM | | procedure are in the | | | | PDT | | results section. | + +--------+ + + + | CBC WITH | Routin | 07/15/2018 | | Results for this | | DIFFERENTIAL | e | 5:28 AM | | procedure are in the | | | | PDT | | results section. | + +--------+ + + + | MAGNESIUM | Routin | 07/15/2018 | | Results for this | | | e | 5:28 AM | | procedure are in the | | | | PDT | | results section. | + +--------+ + + + | BASIC METABOLIC | Routin | 07/15/2018 | | Results for this | | PANEL | e | 5:28 AM | | procedure are in the | | | | PDT | | results section. | + +--------+ + + + | URINALYSIS WITH | Routin | 07/15/2018 | | Results for this | | MICROSCOPIC WITH | e | 3:23 AM | | procedure are in the | | CULTURE IF INDICATED | | PDT | | results section. | + +--------+ + + + | CULTURE, MRSA | Routin | 07/15/2018 | | Results for this | | | e | 12:36 AM | | procedure are in the | | | | PDT | | results section. | + +--------+ + + + | POC GLUCOSE | Routin | 07/14/2018 | | Results for this | | | e | 8:29 PM | | procedure are in the | | | | PDT | | results section. | + +--------+ + + + | POC GLUCOSE | Routin | 07/14/2018 | | Results for this | | | e | 4:57 PM | | procedure are in the | | | | PDT | | results section. | + +--------+ + + + | PROCALCITONIN, SERUM | Routin | 07/14/2018 | | Results for this | | | e | 4:15 PM | | procedure are in the | | | | PDT | | results section. | + +--------+ + + + | LACTIC ACID | Timed | 07/14/2018 | | Results for this | | | | 4:15 PM | | procedure are in the | | | | PDT | | results section. | + +--------+ + + + | XR CHEST AP PORTABLE | STAT | 07/14/2018 | | Results for this | | | | 1:01 PM | | procedure are in the | | | | PDT | | results section. | + +--------+ + + + | CULTURE, BLOOD | STAT | 07/14/2018 | | Results for this | | | | 12:30 PM | | procedure are in the | | | | PDT | | results section. | + +--------+ + + + | PTT | STAT | 07/14/2018 | | Results for this | | | | 12:30 PM | | procedure are in the | | | | PDT | | results section. | + +--------+ + + + | PROTIME INR | STAT | 07/14/2018 | | Results for this | | | | 12:30 PM | | procedure are in the | | | | PDT | | results section. | + +--------+ + + + | TROPONIN I | STAT | 07/14/2018 | | Results for this | | | | 12:18 PM | | procedure are in the | | | | PDT | | results section. | + +--------+ + + + | DIFFERENTIAL, MANUAL | Routin | 07/14/2018 | | Results for this | | | e | 12:18 PM | | procedure are in the | | | | PDT | | results section. | + +--------+ + + + | CULTURE, BLOOD | STAT | 07/14/2018 | | Results for this | | | | 12:18 PM | | procedure are in the | | | | PDT | | results section. | + +--------+ + + + | D-DIMER | STAT | 07/14/2018 | | Results for this | | | | 12:18 PM | | procedure are in the | | | | PDT | | results section. | + +--------+ + + + | CBC WITH | STAT | 07/14/2018 | | Results for this | | DIFFERENTIAL | | 12:18 PM | | procedure are in the | | | | PDT | | results section. | + +--------+ + + + | B TYPE NATRIURETIC | STAT | 07/14/2018 | | Results for this | | PEPTIDE | | 12:18 PM | | procedure are in the | | | | PDT | | results section. | + +--------+ + + + | LACTIC ACID | STAT | 07/14/2018 | | Results for this | | | | 12:18 PM | | procedure are in the | | | | PDT | | results section. | + +--------+ + + + | COMPREHENSIVE | STAT | 07/14/2018 | | Results for this | | METABOLIC PANEL | | 12:18 PM | | procedure are in the | | | | PDT | | results section. | + +--------+ + + + | ECG 12 LEAD | STAT | 07/14/2018 | | Results for this | | | | 11:55 AM | | procedure are in the | | | | PDT | | results section. | + +--------+ + + + | ED INFORMATION | Routin | 07/14/2018 | | | | EXCHANGE | e | 11:47 AM | | | | | | PDT | | | + +--------+ + + + +---+--------+ | | | | | Proced | | | ure | | | Note - | | | Louise, | | | Lab In | | | | | | Hlseve | | | n - | | | | | | 2019 | | | 11:48 | | | AM PDT | | [...] | | | FICATI | | | ON?04/ | | | 09/201 | | | 9 | | | 11:46? | | | MCFADDEN, | | | KENNET | | | H | | | J?MRN: | | | | | | [id number] | | | [id number] | | | riteri | | | [...] | | int | | | Apr 9, | | | 2019 | | | [place] | | | [place] | | [place] | | [place] | | | [place] | | | [place] | | | ncy | | | | | | Weakne | | | ss,Vom | | | iting | | | Apr | | | 2, | | [...] | | int | | | Apr 2, | | | 2019 | | | [place] | | | [place] | | | [place] | | | [place] | | | [place] | | [place] [employer] | | | al | | | [...] | | | [place] | [place] [employer] [employer] | | | al | | | [...] | | | [place] | | [place] [employer] | | | al | | | [...] | | | ent/e5 | | | [id number] | | | -[id number] | | | [id number] | | | [id number] | | | [id number] | | | ee58 | | | andnbs | | | p | | | PLEASE | | | [...] documented in this encounter Results POC Glucose (07/17/2018 7:48 AM PDT) + +---------+ + + + | Component | Value | Ref Range | Performed | Pathologist | | | | | At | Signature | + +---------+ + + + | Glucose, | 131 (H) | 70 - 110 mg/dL | [...] + + | [place] [facility] | [address] | [place] [address] | [phone] | | [facility] | | | | + + + + + POC Glucose (07/16/2018 8:34 PM PDT) + +---------+ + + + | Component | Value | Ref Range | Performed | Pathologist | | | | | At | Signature | + +---------+ + + + | Glucose, | 158 (H) | 70 - 110 mg/dL | [...] + + | [place] [facility] | [address] | [place] [address] | [phone] | | [facility] | | | | + + + + + POC Glucose (07/16/2018 4:29 PM PDT) + +---------+ + + + | Component | Value | Ref Range | Performed | Pathologist | | | | | At | Signature | + +---------+ + + + | Glucose, | 179 (H) | 70 - 110 [...] + + | [place] [facility] | [address] | [place] [address] | [phone] | | [facility] | | | | + + + + + POC Glucose (07/16/2018 11:48 AM PDT) + +---------+ + + + [...] + + | [place] [facility] | [address] | [place] [address] | [phone] | | [facility] | | | | + + + + + Urinalysis with Microscopic with Culture if Indicated (07/16/2018 8:31 AM PDT) + + + + + [...] + + | Specific | 1.015 | 1.003 - 1.030 | [place] | | | [facility] | | | [facility] | | | [...] + + + | RBC UA | 3-5 | <=5 /HPF | [place] | | [...] + + + | BACTERIA UA | Trace (A) | None Seen /HPF [...] + + | [facility] | [address] | [place] [address] | [phone] | | [facility] | | | | + + + + + POC Glucose (07/16/2018 7:21 AM PDT) + +---------+ + + + | Component | Value | Ref Range | Performed | Pathologist | | | | | At | Signature | + +---------+ + + + | Glucose, | 128 (H) | 70 - 110 mg/dL | [...] + + | [facility] | [address] | [place] [address] | [phone] | | [facility] | | | | + + + + + Wes, Manual (07/16/2018 5:35 AM PDT) + + + + + + | Component | Value | Ref Range | Performed | Pathologist | | | | | At | Signature | + + + + + + | % Segmented | 51.0 | 42.0 - 76.0 % | [place] | | | | | | [facility] | | | Neutrophils | | | [facility] | | | | | | [facility] | | + + + + + + | % | 12.0 (L) | 20.0 - 40.0 % | [place] | | | Lymphocytes | | | [facility] | | | | | | [facility] | | | | | | [facility] | | + + + + + + | % Monocytes | 13.0 | 3.0 - 13.0 % | [place] | | | | | | [facility] | | | | [facility] | | | | | | [facility] | | + + + + + + | % | 19.0 (H) | 0.0 - 7.0 % | [...] + + + + | % | 2.0 (H) | <0.0 % | [place] | | | Myelocytes | | | [facility] | | | | | [facility] | | | | | | [facility] | | + + + + + + | % Bands | 2.0 | 0.0 - 7.0 % | [place] | | | | | | [facility] | | | | [facility] | | | | | | [facility] | | + + + + + + | Absolute | 4.79 | 2.80 - 7.70 | [place] | | | Segmented | | K/uL | [facility] | | | Neutrophils | | | [facility] | | | | | | [facility]ATORY | | + + + + + + | Absolute | 1.13 (L) | 1.20 - 3.30 | [place] | | | Lymphocytes | | K/uL | [facility] | | | | | [facility] | | | | | | [facility] | | + + + + + + | Absolute | 1.22 (H) | 0.00 - 0.80 | [place] | | | Monocytes | | K/uL | [facility] | | | | | [facility] | | | | | | [facility] | | + + + + + + | Absolute | 1.79 (H) | 0.00 - 0.70 | [place] | | | Eosinophils | | K/uL | [facility] | | | | | [facility] | | | | | | [facility] | | + + + + + + | Absolute | 0.09 | K/uL | [place] | | | Metamyelocy | | | [facility] | | | | | | [facility] | | + + + + + + | Absolute | 0.19 | K/uL | [place] | | | Myelocytes | | | [facility] | | | | | [facility] | | | | | | [facility] | | + + + + + + | Absolute | 0.19 (H) | 0.00 - 0.15 | [place] [...] + + + + + + | Reactive | Few (A) | (none) | [place] | | | Lymphocytes | [...] + + | [facility] | [address] | [place] [address] | [phone] | | [facility] | | | | + + + + + Magnesium (07/16/2018 5:35 AM PDT) + +-------+ + + [...] + + | [facility] | [address] | [place] [address] | [phone] | | [facility] | | | | + + + + + CBC with Differential (07/16/2018 5:35 AM PDT) + + + + + + | Component | Value | Ref Range | Performed | Pathologist | | | | | At | Signature | + + + + + + | WBC | 9.4 | 4.6 - 10.5 K/uL | [place] [facility] | | | | [facility] | | | | | | [facility] | | + + + + + + | RBC | 4.03 (L) | 4.36 - 5.83 | [place] [...] + + + + | Hematocrit | 36.2 (L) | 39.0 - 51.9 % | [place] [facility] | | | | [facility] | | | | | | [facility] | | + + + + + + | MCV | 89.8 | 82.0 - 96.0 fL | [place] [...] + + | RDW-CV | 16.2 | 0.0 - 17.0 % | [place] | | | | | | [facility] | | | | | | [facility] | | + + + + + + | Platelet | 137 (L) | 150 - 450 K/uL | [...] + + | [facility] | [address] | [place] [address] | [phone] | | [facility] | | | | + + + + + Basic Metabolic Panel (07/16/2018 5:35 AM PDT) + +---------+ + + [...] +---------+ + + + | K | 3.9 | 3.3 - 4.9 | [place] | | | | | mmol/L | [facility] | | [facility] | [facility] | | | | | | [facility] | | + +---------+ + + + | Cl | 102 [...] +---------+ + + + | Glucose | 115 (H) | 70 - 110 mg/dL | [place] [facility] | | | | [facility] | [facility] | | | | | | [facility] | | + +---------+ + + + | BUN | 21 | 5 - 26 mg/dL | [place] [facility] | | | | [facility] | | | | [facility] | | | | | | [facility] | | + +---------+ + + + | Creatinine | 1.32 | 0.70 - 1.40 | [place] | | | | | mg/dL | [facility] | | | | | [facility] | | | | | | [facility] | | + +---------+ + + + | eGFR if not | 52 (L) | >=60 | [place] | | | | | mL/min/1.73m2 | [facility] | | | [facility] | | | | | | [facility] | | + +---------+ + + + | Calcium | 8.0 (L) | 8.3 - 10.0 | [place] | | | | | mg/dL | [facility] | | | | [facility] | | | | | | [facility] | | + +---------+ + + + | BUN/Creatin | 15.9 | 7.0 - 24.0 | [place] | [...] + + | [facility] | [address] | [place] [address] | [phone] | | [facility] | | | | + + + + + POC Glucose (07/15/2018 8:27 PM PDT) + +-------+ + + + | Component | Value | Ref Range | Performed | Pathologist | | | | | At | Signature | + +-------+ + + + | Glucose, | 110 | 70 - 110 mg/dL | [place] [...] + + | [facility] | [address] | [place] [address] | [phone] | | [facility] | | | | + + + + + MRI Brain wo Contrast (07/15/2018 6:46 PM PDT) + + | Specimen | + + | | + + + + + | Impressions | Performed At | + + + | IMPRESSION: 1. No acute intracranial abnormality 2. Global volume | [facility] | | loss. 3. Mild white matter disease, likely related to chronic small | | | vessel ischemia. 4. Mild maxillary sinus mucosal thickening. | | | Dictated by: Massimo Alba | | + + + + + + | Narrative | Performed At | + + + | EXAMINATION: MRI BRAIN WO CONTRAST HISTORY: off balance | [facility] | | COMPARISON STUDY: May 21, 2018 May 21, 2018 TECHNIQUE: | | | Multiplanar multi sequence MRI of the brain is performed without | | | contrast. FINDINGS: Diffusion-weighted images show no evidence | | | of restricted diffusion. The reinoso-white matter interface is intact. | | | No acute intracranial hemorrhage, mass lesion, or midline shift. | | | Basilar cisterns are patent. Ventricles are symmetric. Sulci are | | | prominent but proportional to the ventricles. Mild cerebellar volume | | | loss. Major flow voids are present. 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 Mild confluent periventricular white matter T2 | | | hyperintensity. There a few scattered deep and subcortical frontal | | | white matter punctate hyperintensities. Mild maxillary sinus mucosal | | | thickening. Mastoid air cells are clear.. The pituitary gland is | | | unremarkable. Corpus callosum is unremarkable. Brainstem is | | | unremarkable. | | + + + + + | Procedure Note | + + | Louise, Rad Results In - 07/16/2018 8:11 AM PDT EXAMINATION:MRI BRAIN WO | | CONTRASTHISTORY:off balanceCOMPARISON STUDY:May 21, 2018 May 21, | | 2019TECHNIQUE:Multiplanar multi sequence MRI of the brain is performed without | | contrast.FINDINGS:Diffusion-weighted images show no evidence of restricted diffusion.The | | reinoso-white matter interface is intact.No acute intracranial hemorrhage, mass lesion, or | | midline shift.Basilar cisterns are patent.Ventricles are symmetric.Sulci are prominent | | but proportional to the ventricles.Mild cerebellar volume loss.Major flow voids are | | present.Remote right cerebellar lacunar infarct.Mild confluent periventricular white | | matter T2 hyperintensity. There a few scattered deep and subcortical frontal white | | matter punctate hyperintensities.Mild maxillary sinus mucosal thickening.Mastoid air | | cells are clear..The pituitary gland is unremarkable.Corpus callosum is | | unremarkable.Brainstem is unremarkable.IMPRESSION: IMPRESSION:1. No acute intracranial | | abnormality2. Global volume loss.3. Mild white matter disease, likely related to chronic | | small vessel ischemia.4. Mild maxillary sinus mucosal thickening.Dictated by: Massimo | | [place] | |The reinoso-white matter interface is intact. | |No acute intracranial hemorrhage, mass lesion, or midline shift. | |Basilar cisterns are patent. | |Ventricles are symmetric. | |Sulci are prominent but proportional to the ventricles. | |Mild cerebellar volume loss. | |Major flow voids are present. | |Remote right cerebellar lacunar infarct. | |Mild confluent periventricular white matter T2 hyperintensity. There a few scattered deep and subcortical frontal white matter punctate hyperintensities. | |Mild maxillary sinus mucosal thickening. | |Mastoid air cells are clear.. | |The pituitary gland is unremarkable. | |Corpus callosum is unremarkable. | |Brainstem is unremarkable. | | | |IMPRESSION: | |IMPRESSION: | |1. No acute intracranial abnormality | |2. Global volume loss. | |3. Mild white matter disease, likely related to chronic small vessel ischemia. | |4. Mild maxillary sinus mucosal thickening. | | | |Dictated by: Massimo Alba | | | | | + + + +---------+ + + | Performing | Address | City/State/Zipcode | Phone Number | | Organization | | | | + +---------+ + + | [facility] | | | | + +---------+ + + POC Glucose (07/15/2018 4:48 PM PDT) + +---------+ + + + [...] + + | [facility] | [address] | [place] [address] | [phone] | | [facility] | | | | + + + + + POC Glucose (07/15/2018 11:30 AM PDT) + +---------+ + + + | Component | Value | Ref Range | Performed | Pathologist | | | | | At | Signature | + +---------+ + + + | Glucose, | 147 (H) | 70 - 110 [...] + + | [facility] | [address] | [place] [address] | [phone] | | [facility] | | | | + + + + + XR Chest PA and Lateral (07/15/2018 9:22 AM PDT) + + | Specimen | + + | | + + + + + | Impressions | Performed At | + + + | IMPRESSION: No acute cardiopulmonary process. Query pulmonary | [facility] | | hypertension. Diffuse idiopathic skeletal hyperostosis. Dictated | | | by: Massimo Alba Electronically Signed by: Massimo Alba on | | | 07/15/2018 10:45 AM | | + + + + + + | Narrative | Performed At | + + + | EXAMINATION: XR CHEST PA AND LATERAL HISTORY: pneumonia | [facility] | | COMPARISON STUDY: July 14, 2018, May 27, 2017 FINDINGS: The | | | lungs are well ventilated. Mild prominence of central pulmonary | | | vessels. No pleural effusion. No pneumothorax. Cardiomediastinal | | | silhouette is normal. No acute osseous process. Flowing thoracic | | | spine osteophytes. Prior cholecystectomy. | | + + + + + | Procedure Note | + + | Louise, Rad Results In - 07/15/2018 10:49 AM PDT EXAMINATION:XR CHEST PA AND | | LATERALHISTORY:pneumoniaCOMPARISON STUDY:July 14, 2018, May 27, 2017FINDINGS:The | | lungs are well ventilated. Mild prominence of central pulmonary vessels. No pleural | | effusion. No pneumothorax. Cardiomediastinal silhouette is normal. No acute osseous | | process. Flowing thoracic spine osteophytes. Prior cholecystectomy.IMPRESSION: | | IMPRESSION:No acute cardiopulmonary process.Query pulmonary hypertension.Diffuse | | idiopathic skeletal hyperostosis.Dictated by: Massimo Acevesectronically Signed by: | | Massimo Alba on 07/15/2018 10:45 AM | | | |FINDINGS: | |The lungs are well ventilated. Mild prominence of central pulmonary vessels. No pleural e ffusion. No pneumothorax. Cardiomediastinal silhouette is normal. No acute osseous proces s. Flowing thoracic spine osteophytes. Prior cholecystectomy. | | | |IMPRESSION: | |IMPRESSION: | |No acute cardiopulmonary process. | |Query pulmonary hypertension. | |Diffuse idiopathic skeletal hyperostosis. | | | |Dictated by: Massimo Alba | | | | | + + + +---------+ + + | Performing | Address | City/State/Zipcode | Phone Number | | Organization | | | | + +---------+ + + | [facility] | | | | + +---------+ + + POC Glucose (07/15/2018 7:34 AM PDT) + +---------+ + + + | Component | Value | Ref Range | Performed | Pathologist | | | | | At | Signature | + +---------+ + + + | Glucose, | 116 (H) | 70 - 110 mg/dL | [...] + + | [facility] | [address] | [place] [address] | [phone] | | [facility] | | | | + + + + + Wes, Manual (07/15/2018 5:28 AM PDT) + + + + + + | Component | Value | Ref Range | Performed | Pathologist | | | | | At | Signature | + + + + + + | % Segmented | 49.0 | 42.0 - 76.0 % | [facility] | | | | [facility] | | | Neutrophils | | | [facility] | | | | | | LAB[facility]ATORY | | + + + + + + | % | 14.0 (L) | 20.0 - 40.0 % | [facility] | | | Lymphocytes | | | [facility] | | | | | | [facility] | | | | | | LAB[facility]ATORY | | + + + + + + | % Monocytes | 11.0 | 3.0 - 13.0 % | [facility] [...] + + + + | % | 2.0 (HH) | <0.0 % | [facility] | | | Promyelocyt | | | [facility] | | | es | | | [facility]OSPITAL | | | | | | LABORATORY | | + + + + + + | % Bands | 15.0 (H) | 0.0 - 7.0 % | [facility] | | [facility] | | | | [facility] | | | | | | [facility] | | + + + + + + | Absolute | 5.15 | 2.80 - 7.70 | [facility] | | | Segmented | | K/uL | [facility] | | | Neutrophils | | | [facility] | | | | | | LABORATORY | | + + + + + + | Absolute | 1.47 | 1.20 - 3.30 | [facility] | | | Lymphocytes | | K/uL | [facility] | | | | | | [facility] | | | | | | LAB[facility]ATORY | | + + + + + + | Absolute | 1.16 (H) | 0.00 - 0.80 | [facility] [...] + + + + | Absolute | 0.21 | K/uL | [facility] | | | Promyelocyt | | | [facility] | | | es | | | [facility]OSPITAL | | | | | | LABORATORY | | + + + + + + | Absolute | 1.58 (H) | 0.00 - 0.15 | [facility] [...] + + + + | Platelet | Adequate | Adequate | [facility] | | | Estimate | | | [facility] | | | [...] + + + + + + | Reactive | Few (A) | (none) | [facility] | | | Lymphocytes | | | [facility] | | | | | [facility] | | | | | | LAB[facility]ATORY | | + + + + + + | Variant | Few (A) | (none) | [facility] | | | Lymphocytes | | | [facility] | | | | | | [facility] | | | | | | LABORATORY | | + + + + + + + + | Specimen | + + | Blood | + + + + + | Narrative | Performed At | + + + | A few plasmacytoid cells observed on slide review. | [facility] | | | [facility] | | | [facility]ATORY | + + + + + + + + | Performing | Address | City/State/Zipcode | Phone Number | | Organization | | | | + + + + + | [facility] | [address] | [place] [address] | [phone] | | [facility] | | | | + + + + + CBC with Differential (07/15/2018 5:28 AM PDT) + + + + + + | Component | Value | Ref Range | Performed | Pathologist | | | | | At | Signature | + + + + + + | WBC | 10.5 | 4.6 - 10.5 K/uL | [facility] | | | | [facility] | | | | [facility] | | | | | | [facility] | | + + + + + + | RBC | 3.72 (L) | 4.36 - 5.83 | [facility] | | | | | M/uL | [facility] | | | | | [facility] | | | | | | [facility]ATORY | | + + + + + + | Hemoglobin | 11.2 (L) | 13.1 - 17.4 | [facility] | | | | | g/dL | [facility] | | | | | | [facility] | | | | | | [facility]ORY | | + + + + + + | Hematocrit | 34.0 (L) | 39.0 - 51.9 % | [facility] | | | | | [facility] | | | | [facility] | | | | | | [facility] | | + + + + + + | MCV | 91.4 | 82.0 - 96.0 fL | [facility] [...] + + + + | Platelet | 129 (L) | 150 - 450 K/uL | [...] + + | [facility] | [address] | [place] [address] | [phone] | | [facility] | | | | + + + + + Magnesium (07/15/2018 5:28 AM PDT) + +---------+ + + + | Component | Value | Ref Range | Performed | Pathologist | | | | | At | Signature | + +---------+ + + + | Magnesium | 1.3 (L) | 1.8 - 2.4 mg/dL | [...] + + | [facility] | [address] | [place] [address] | [phone] | | [facility] | | | | + + + + + Basic Metabolic Panel (07/15/2018 5:28 AM PDT) + + + + + [...] | CO2 | 23 | 23 - 34 mmol/L | [facility] [...] + + + + | Glucose | 125 (H) | 70 - 110 mg/dL | [...] + + + + | Creatinine | 1.71 (H) | 0.70 - 1.40 | [facility] | | | | | mg/dL | [facility] | | | | | | [facility] | | | | | | LAB[facility]ATORY | | + + + + + + | eGFR if not | 39 (L) | >=60 | [facility] | | | | | mL/min/1.73m2 | [facility] | | | [facility] | | [facility] | | | | | | [facility]ORY | | + + + + + + | Calcium | 7.3 (L) | 8.3 - 10.0 | [facility] | | | | | mg/dL | [facility] | | | | | | [facility] | | | | | | [facility] | | + + + + + + | BUN/Creatin | 16.4 | 7.0 - 24.0 | [facility] | [...] + + | [facility] | [address] | [place] [address] | [phone] | | [facility] | | | | + + + + + Urinalysis with Microscopic with Culture if Indicated (07/15/2018 3:23 AM PDT) + + + + + [...] - 1.030 | [facility] | | | [facility] | | | [facility] | | | [...] + + | [facility] | [address] | [place] [address] | [phone] | | [facility] | | | | + + + + + Culture, MRSA (07/15/2018 12:36 AM PDT) + + + + + + | Component | Value | Ref Range | Performed | Pathologist | | | | | At | Signature | + + + + + + | Culture | 1+ Staphylococcus | | [facility] | | | | aureus,Methicillin | | [facility] | | | | resistant (MRSA) | | [facility] | | | | [...] + + | [facility] | [address] | [place] [address] | [phone] | | [facility] | | | | + + + + + POC Glucose (07/14/2018 8:29 PM PDT) + +---------+ + + + | Component | Value | Ref Range | Performed | Pathologist | | | | | At | Signature | + +---------+ + + + | Glucose, | 205 (H) | 70 - 110 mg/dL | [...] + + | [facility] | [address] | [place] [address] | [phone] | | [facility] | | | | + + + + + POC Glucose (07/14/2018 4:57 PM PDT) + +---------+ + + + | Component | Value | Ref Range | Performed | Pathologist | | | | | At | Signature | + +---------+ + + + | Glucose, | 214 (H) | 70 - 110 mg/dL | [...] + + | [facility] | [address] | [place] [address] | [phone] | | [facility] | | | | + + + + + Procalcitonin (07/14/2018 4:15 PM PDT) + + + + + + | Component | Value | Ref Range | Performed | Pathologist | | | | | At | Signature | + + + + + + | Procalciton | 0.51 (H)Comment: | <0.10 ng/mL | REFERENCE | | | in | Abnormal Flag: | | [facility] | | | | HReference Range: | | [facility] | | | | <0.10Interpretation | | - [facility] | | | | Guidelines Diagnosis of | | [facility] | | | | systemic bacterial | | | | | | infection/sepsis . . . | | | | | | . <0.50 ng/mL: Low | | | | | | risk for sepsis; local . | | | | | | . . . . . . . | | | | | | bacterial infection | | | | | | possible >=0.50 to | | | | | | <2.00 ng/mL: Sepsis is | | | | | | possible; other . . . | | | | | | . . . . . | | | | | | conditions | | | | | | possible>=2.00 to <10.00 | | | | | | ng/mL: Sepsis likely . | | | | | | . >=10.00 ng/mL: | | | | | | Severe bacterial sepsis | | | | | | or . . . . . . . | | | | | | . septic shock | | | | | | probableDiagnosis of | | | | | | lower respiratory tract | | | | | | infections: . . . | | | | | | .<0.10 ng/mL: | | | | | | Bacterial infection | | | | | | very . . . . . . . | | | | | | . unlikely>=0.10 | | | | | | to <0.25 ng/mL: | | | | | | Bacterial infection | | | | | | unlikely>=0.25 to <0.50 | | | | | | ng/mL: Bacterial | | | | | | infection likely . . | | | | | | >=0.50 ng/mL: | | | | | | Bacterial infection | | | | | | very . . . . . . . | | | | | | . | | | | | | likelyProcalcitonin | | | | | | levels should be | | | | | | evaluated in context of | | | | | | all laboratory findings | | | | | | and the total clinical | | | | | | status of the | | | | | | patient.For more | | | | | | information on this | | | | | | test, go | | | | | | [email or web address] | | | | | | [email or web address] | | | | | | 6 Test(s) performed at: | | | | | | [facility] | | | | | | ELIAZ[facility] Ibarra | | | | | | Antonieta Clayton M.D., Ph.D. | | | | | | [place] | | | | | | [address] [facility] | | | | | | [place] | | | | | | [place] | | | | | | #[id number] | | | | + + + + + + + + | Specimen | + + | Blood | + + + + + + + | Performing | Address | City/State/Zipcode | Phone Number | | Organization | | | | + + + + + | REFERENCE LAB | [address] [facility] | [place], [place] | | | [facility] - | | [phone] | | | [facility] | | | | + + + + + Lactic Acid (07/14/2018 4:15 PM PDT) + +-------+ + + + [...] + + | [facility] | [address] | [place] [address] | [phone] | | H[facility]PITAL [facility] | | | | + + + + + XR Chest AP Portable (07/14/2018 1:01 PM PDT) + + | Specimen | + + | | + + + + + | Impressions | Performed At | + + + | IMPRESSION: Mild hypoventilation. Left basilar scarring versus | [facility] | | atelectasis. Atherosclerosis. Query small hiatal hernia. | | | Dictated by: Massimo Alba | | + + + + + + | Narrative | Performed At | + + + | EXAMINATION: XR CHEST AP PORTABLE HISTORY: WEAKNESS | [facility] | | COMPARISON STUDY: July 08, 2018 FINDINGS: The lungs are mildly | | | hypoventilated. Left basilar scarring versus atelectasis laterally. | | | No pleural effusion. No pneumothorax. Cardiomediastinal | | | silhouette is normal. No acute osseous process. Atherosclerosis of | | | the descending aorta. Query small hiatal hernia. | | + + + + + | Procedure Note | + + | Louise, Rad Results In - 07/14/2018 1:10 PM PDT EXAMINATION:XR CHEST AP | | PORTABLEHISTORY:WEAKNESSCOMPARISON STUDY:July 08, 2018FINDINGS:The lungs are mildly | | hypoventilated. Left basilar scarring versus atelectasis laterally. No pleural | | effusion. No pneumothorax. Cardiomediastinal silhouette is normal. No acute osseous | | process. Atherosclerosis of the descending aorta. Query small hiatal | | hernia.IMPRESSION: IMPRESSION:Mild hypoventilation.Left basilar scarring versus | | atelectasis.Atherosclerosis.Query small hiatal hernia.Dictated by: Massimo | | [facility] | | | |FINDINGS: | |The lungs are mildly hypoventilated. Left basilar scarring versus atelectasis laterally. No pleural effusion. No pneumothorax. Cardiomediastinal silhouette is normal. No acute os seous process. | |Atherosclerosis of the descending aorta. Query small | |hiatal hernia. | | | |IMPRESSION: | |IMPRESSION: | |Mild hypoventilation. | |Left basilar scarring versus atelectasis. | |Atherosclerosis. | |Query small hiatal hernia. | | | |Dictated by: Massimo Alba | | | | | + + + +---------+ + + | Performing | Address | City/State/Zipcode | Phone Number | | Organization | | | | + +---------+ + + | [facility] | | | | + +---------+ + + PTT (07/14/2018 12:30 PM PDT) + +--------+ + + + | Component | Value | Ref Range | Performed | Pathologist | | | | | At | Signature | + +--------+ + + + | aPTT | 24 (L) | 25 - 33 seconds | [...] + + | [facility] | [address] | [place] [address] | [phone] | | [facility] | | | | + + + + + Protime INR (07/14/2018 12:30 PM PDT) + +-------+ + + [...] Range: INR: 2.0-3.0 CONVENTIONAL ANTICOAGULATION | [facility] | | INR: 2.5-3.5 INTENSIVE ANTICOAGULATION | HOSPITAL | | | LABORATORY | + + + + + + + + | Performing | Address | City/State/Zipcode | Phone Number | | Organization | | | | + + + + + | [facility] | [address] | [place] [address] | [phone] | | [facility] | | | | + + + + + Culture, Blood (07/14/2018 12:30 PM PDT) + + + + [...] + + | [facility] | [address] | [place] [address] | [phone] | | [facility] | | | | + + + + + Differential, Manual (07/14/2018 12:18 PM PDT) + + + + + + | Component | Value | Ref Range | Performed | Pathologist | | | | | At | Signature | + + + + + + | % Segmented | 52.0 | 42.0 - 76.0 % | [facility] | | | | [facility] | | | Neutrophils | | | [facility]PITAL | | | | | | LABORATORY | | + + + + + + | % | 10.0 (L) | 20.0 - 40.0 % | [facility] | | | Lymphocytes | | | [facility] | | | | | | [facility] | | | | | | LAB[facility]ATORY | | + + + + + + | % Monocytes | 9.0 | 3.0 - 13.0 % | [facility] | | | | [facility] | | | | [facility] | | | | | | [facility] | | + + + + + + | % | 11.0 (H) | 0.0 - 7.0 [...] <0.0 % | [facility] | | | Myelocytes | | | [facility] | | | | | | [facility] | | | | | | LAB[facility]ATORY | | + + + + + + | % Bands | 16.0 (H) | 0.0 - 7.0 % | [facility] | | | | | [facility] | | | | [facility] | | | | | | [facility] | | + + + + + + | Absolute | 8.63 (H) | 2.80 - 7.70 | [facility] | | | Segmented | | K/uL | [facility] | | | Neutrophils | | | [facility]ITAL | | | | | | LABORATORY | | + + + + + + | Absolute | 1.66 | 1.20 - 3.30 | [facility] | | | Lymphocytes | | K/uL | [facility] | | | | | | [facility] | | | | | | LAB[facility]ATORY | | + + + + + + | Absolute | 1.49 (H) | 0.00 - 0.80 | [facility] | | | Monocytes | | K/uL | [facility] | | | | | | [facility] | | | | | | LAB[facility]ATORY | | + + + + + + | Absolute | 1.83 (H) | 0.00 - 0.70 | [facility] | | | Eosinophils | | K/uL | [facility] | | | | | | [facility] | | | | | | [facility]ATORY | | + + + + + + | Absolute | 0.17 | K/uL | [facility] | | | Metamyelocy | | | [facility] | | | [facility] | | | [facility] | | | | | | LAB[facility]ATORY | | + + + + + + | Absolute | 0.17 | K/uL | [facility] | | | Myelocytes | | | [facility] | | | | | | [facility] | | | | | | LAB[facility]ATORY | | + + + + + + | Absolute | 2.66 (H) | 0.00 - 0.15 | [facility] [...] + + + + + + | Toxic | Present (A) | Not Present | [facility] | | | Granulation | | | [facility] | | | | | | [facility] | | | | | | LAB[facility]ATORY | | + + + + + + + + | Specimen | + + | Blood | + + + + + | Narrative | Performed At | + + + | Platelet count appears adequate. | [facility] | | | [facility] | | | [facility] | + + + + + + + + | Performing | Address | City/State/Zipcode | Phone Number | | Organization | | | | + + + + + | [facility] | [address] | [place] [address] | [phone] | | [facility] | | | | + + + + + Culture, Blood (07/14/2018 12:18 PM PDT) + + + + + [...] + + | [facility] | [address] | [place] [address] | [phone] | | [facility] | | | | + + + + + Lactic Acid (07/14/2018 12:18 PM PDT) + + + + + + | Component | Value | Ref Range | Performed | Pathologist | | | | | At | Signature | + + + + + + | Lactate | 3.1 (HH) | 0.4 - 2.1 | [facility] | [...] + + | [facility] | [address] | [place] [address] | [phone] | | [facility] | | | | + + + + + B Type Natriuretic Peptide (07/14/2018 12:18 PM PDT) + +-------+ + + + | Component | Value | Ref Range | Performed | Pathologist | | | | | At | Signature | + +-------+ + + + | NT-proBNP | 260 | <=450 pg/mL | [facility] | | [...] + + | [facility] | [address] | [place] [address] | [phone] | | [facility] | | | | + + + + + D-Dimer (07/14/2018 12:18 PM PDT) + + + + + + | Component | Value | Ref Range | Performed | Pathologist | | | | | At | Signature | + + + + + + | D-Dimer | 1.14 (H) | <=0.59 ug/mL | [facility] | | | Quantitativ | | FEU | [facility] | | | e | | | [facility] | | | | | | LAB[facility]ATORY | | + + + + + + + + | Specimen | + + | Blood | + + + + + | Narrative | Performed At | + + + | A study performed by the warp tying machine knotter using this assay showed a 99% | [facility] | | negative predictive value for DVT when using a negative cutoff value | HOSPITAL | | of <0.5 ug/ml FEU for all patients and those with an unlikely pre-test | LABORATORY | | probability. For PE this assay showed a 99% negative predictive value | | | when using a cutoff of <0.5 ug/ml FEU for all patients and those with | | | a low and moderate pre-test probability. | | + + + + + + + + | Performing | Address | City/State/Zipcode | Phone Number | | Organization | | | | + + + + + | [facility] | [address] | [place] [address] | [phone] | | [facility] | | | | + + + + + Troponin I (07/14/2018 12:18 PM PDT) + +-------+ + + + [...] | cutoff point for the diagnosis of NH is 0.8 ng/mL for the Troponin I | | | method. | | + + + + + + + + | Performing | Address | City/State/Zipcode | Phone Number | | Organization | | | | + + + + + | [facility] | [address] | [place] [address] | [phone] | | [facility] | | | | + + + + + Comprehensive Metabolic Panel (07/14/2018 12:18 PM PDT) + + + + + [...] + + + + | Cl | 99 | 95 - 108 mmol/L | [facility] [...] Gap | 14 | 7 - 16 mmol/L | [facility] | [facility] | [facility] | | | | | | [facility] | | + + + + + + | Glucose | 215 (H) | 70 - 110 mg/dL | [facility] | [facility] | [facility] | | | | | | [facility] | | + + + + + + | BUN | 31 (H) | 5 - 26 mg/dL | [facility] | [facility] | | [facility] | | | | | | [facility] | | + + + + + + | Creatinine | 2.74 (H) | 0.70 - 1.40 | [facility] | | | | | mg/dL | [facility] | | | | | | [facility] | | | | | | LAB[facility]ATORY | | + + + + + + | eGFR if not | 22 (L)Comment: | >=60 | [facility] | | | | GLOMERULAR FILTRATION | mL/min/1.73m2 | [facility] | | | [facility] | RATE,ESTIMATED | | [facility]OSPITAL | | | | mL/min/1.93p1Ovxi than | | LABORATORY | | | [...] + + + + | Calcium | 9.3 | 8.3 - 10.0 | [facility] | | | | | mg/dL | [facility] | | | | | | [facility] | | | | | | LAB[facility]ATORY | | + + + + + + | Albumin | 3.8 | 3.0 - 4.5 g/dL | [facility] [...] + + + + | Total | 8.7 (H) | 6.6 - 8.5 g/dL | [...] + + + + | ALT | 72 (H) | 16 - 63 U/L | [facility] | | | | | | [facility] | | + + + + + + | Alkaline | 127 (H) | 46 - 116 U/L | [facility] | | | Phosphatase | | | [facility] | | | | | | [facility] | | | | | | LAB[facility]ATORY | | + + + + + + | Globulin | 4.9 (H) | 2.4 - 4.5 g/dL | [facility] | | | | | [facility] | | | | | [facility] | | | | | | [facility] | | + + + + + + | Albumin/Lizbeth | 0.8 | 0.8 - 2.0 | [facility] | | | bulin Ratio | | | [facility] | | | | | | [facility] | | | | | | LAB[facility]ATORY | | + + + + + + | BUN/Creatin | 11.3 | 7.0 - 24.0 | [facility] | [...] + + | [facility] | [address] | [place] [address] | [phone] | | [facility] | | | | + + + + + CBC with Differential (07/14/2018 12:18 PM PDT) + + + + + + | Component | Value | Ref Range | Performed | Pathologist | | | | | At | Signature | + + + + + + | WBC | 16.6 (H) | 4.6 - 10.5 K/uL | [facility] | | | | | | [facility] | | + + + + + + | RBC | 5.11 | 4.36 - 5.83 | [facility] | | | | | M/uL | [facility] | | | | | [facility] | | | | | | [facility] | | + + + + + + | Hemoglobin | 15.4 | 13.1 - 17.4 | [facility] | | | | | g/dL | [facility] | | | | | [facility] | | | | | | [facility] | | + + + + + + | Hematocrit | 46.6 | 39.0 - 51.9 % | [facility] | [facility] | | | [facility] | | | | | | [facility] | | + + + + + + | MCV | 91.2 | 82.0 - 96.0 fL | [facility] [...] + + + + | RDW-CV | 16.4 | 0.0 - 17.0 % | [facility] | [facility] | | | | | | [facility] | | + + + + + + | Platelet | 180 | 150 - 450 K/uL | [facility] [...] + + | [facility] | [address] | [place] [address] | [phone] | | [facility] | | | | + + + + + ECG 12 lead (07/14/2018 11:55 AM PDT) + + | Specimen | + + | | + + + + + | Narrative | Performed At | + + + | Heart Rate: 80 | [facility] | | bpmQRS Interval: 94 msQT Interval: 388 msQTC Interval: 448 msP [place]: | TRAC[facility]ER | | 19 degQRS [place]: -31 degT Wave [place]: 13 degP-R Interval: 176 msec- | | | OTHERWISE NORMAL ECG -SINUS RHYTHMLEFT AXIS DEVIATION | | |P [place]: 19 deg | | |QRS [place]: -31 deg | | |T Wave [place]: 13 deg | | |P-R Interval: 176 msec | | |- OTHERWISE NORMAL ECG - | | |SINUS RHYTHM | | |LEFT AXIS DEVIATION | | + + + + +---------+ + + | Performing | Address | City/State/Zipcode | Phone Number | | Organization | | | | + +---------+ + + | [facility] | | | | + +---------+ + + documented in this encounter Visit Diagnoses + + | Diagnosis | + + | VIKAS (acute kidney injury) (HCC) - Primary Acute kidney failure, unspecified | + + | Acute renal failure, unspecified acute renal failure type (HCC) | + + | Type 2 diabetes mellitus with hyperglycemia, with long-term current use of insulin | | (HCC) | + + | Type 2 diabetes mellitus with diabetic polyneuropathy, 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) | + + | Pneumonia Pneumonia, organism unspecified | + + | Type 2 diabetes mellitus with complication, with long-term current use of insulin | | (HCC) | + + | Dehydration | + + documented in this encounter Administered Medications + +--------+ +-------+------+------+ | Medication Order | MAR | Action | Dose | Rate | Site | | | Action | Date | | | | + +--------+ +-------+------+------+ | aspirin chewable tablet 81 mg | Given | 07/18/19 | 81 mg | | | | 81 mg, Oral, DAILY, First dose on | | 19 8:05 | | | | | 07/15/18 at 0900 | | AM PDT | | | | + +--------+ +-------+------+------+ +-------+ +-------+---+---+ | Given | 07/17/19 | 81 mg | | | | | 19 10:02 | | | | | | AM PDT | | | | +-------+ +-------+---+---+ | Given | 07/16/19 | 81 mg | | | | | 19 10:14 | | | | | | AM PDT | | | | +-------+ +-------+---+---+ +---+---+ | | | +---+---+ + +---------+ +-----+-------+---+ | cefTRIAXone in dextrose | New Bag | 07/17/19 | 2 g | 100 | | | (ROCEPHIN) IVPB 2 g 2 g, | | 19 3:43 | | mL/hr | | | Intravenous, Administer over 30 | | PM PDT | | | | | Minutes, EVERY 24 HOURS (Daily), | | | | | | | First dose on Fri07/14/18 at 1615, | | | | | | | For 7 doses, Indications: | | | | | | | Community Acquired Pneumonia | | | | | | + +---------+ +-----+-------+---+ +---------+ +-----+-------+---+ | New Bag | 07/16/19 | 2 g | 100 | | | | 19 5:19 | | mL/hr | | | | PM PDT | | | | +---------+ +-----+-------+---+ | New Bag | 07/15/19 | 2 g | 100 | | | | 19 5:01 | | mL/hr | | | | PM PDT | | | | +---------+ +-----+-------+---+ +---+---+ | | | +---+---+ + +---------+ +--------+ +---+ | clindamycin in dextrose | New Bag | 07/18/19 | 900 mg | 50 mL/hr | | | (CLEOCIN) IVPB 900 mg 900 mg, | | 19 5:59 | | | | | Intravenous, Administer over 60 | | AM PDT | | | | | Minutes, EVERY 8 HOURS (3 times | | | | | | | per day), First dose on Fri | | | | | | | 07/14/18 at 2200, Indications: | | | | | | | Community Acquired Pneumonia | | | | | | + +---------+ +--------+ +---+ +---------+ +--------+ +---+ | New Bag | 07/17/19 | 900 mg | 50 mL/hr | | | | 19 9:27 | | | | | | PM PDT | | | | +---------+ +--------+ +---+ | New Bag | 07/17/19 | 900 mg | 50 mL/hr | | | | 19 2:55 | | | | | | PM PDT | | | | +---------+ +--------+ +---+ +---+---+ | | | +---+---+ + +-------+ +-------+---+---+ | clopidogrel (PLAVIX) tablet 75 | Given | 07/18/19 | 75 mg | | | | mg 75 mg, Oral, EVERY MORNING, | | 19 8:05 | | | | | First dose on Fri07/15/18 at 0900 | | AM PDT | | | | + +-------+ +-------+---+---+ +-------+ +-------+---+---+ | Given | 07/17/19 | 75 mg | | | | | 19 10:03 | | | | | | AM PDT | | | | +-------+ +-------+---+---+ | Given | 07/16/19 | 75 mg | | | | | 19 10:14 | | | | | | AM PDT | | | | +-------+ +-------+---+---+ +---+---+ | | | +---+---+ + +-------+ + +---+ + | insulin glargine (LANTUS) | Given | 07/17/19 | 18 Units | | Arm-Righ | | injection (vial) 18 Units 18 | | 19 9:27 | | | t Upper | | Units (rounded from 18.14 Units = | | PM PDT | | | | | 0.2 Units/kg/day | | | | | | | 90.7 kg), Subcutaneous, NIGHTLY, | | | | | | | First dose on Fri07/14/18 at | | | | | | [...] +-------+ + +---+ + | Given | 07/16/19 | 18 Units | | Abdomen- | | | 19 9:07 | | | LUQ | | | PM PDT | | | | +-------+ + +---+ + | Given | 07/15/19 | 18 Units | | Abdomen- | | | 19 8:48 | | | LUQ | | | PM PDT | | | | +-------+ + +---+ + +---+---+ | | | +---+---+ + +-------+ +---------+---+ + | insulin lispro (humaLOG) | Given | 07/17/19 | 1 Units | | Arm-Left | | injection (vial) 0-6 Units 0-6 | | 19 5:14 | | | Upper | | Units, Subcutaneous, 4 TIMES | | PM PDT | | | | | DAILY WITH MEALS & NIGHTLY, First | | | | | | | dose on Fri07/14/18 at 1700, | | | | | [...] | | | | AC, NPO, Daytime [id number] Use | | | | | | | NIGHT DOSE for doses scheduled: | | | | | | | HS, 3AM, Nighttime [id number] | | | | | | | [...] + +-------+ +---------+---+ + | Given | 07/15/19 | 1 Units | | Abdomen- | | | 19 8:48 | | | LUQ | | | PM PDT | | | | +-------+ +---------+---+ + | Given | 07/15/19 | 2 Units | | Abdomen- | | | 19 5:09 | | | LUQ | | | PM PDT | | | | +-------+ +---------+---+ + +---+---+ | | | +---+---+ + +-------+ +---------+---+---+ | levothyroxine (SYNTHROID) | Given | 07/18/19 | 225 mcg | | | | tablet 225 mcg 225 mcg, Oral, | | 19 8:05 | | | | | DAILY BEFORE BREAKFAST, First | | AM PDT | | | | | dose on Fri07/15/18 at 0730, Give | | | | | | | before breakfast., | | | | | | + +-------+ +---------+---+---+ +-------+ +---------+---+---+ | Given | 07/17/19 | 225 mcg | | | | | 19 7:44 | | | | | | AM PDT | | | | +-------+ +---------+---+---+ | Given | 07/16/19 | 225 mcg | | | | | 19 6:35 | | | | | | AM PDT | | | | +-------+ +---------+---+---+ +---+---+ | | | +---+---+ + +---------+ +-----+ +---+ | magnesium sulfate 4 g/100 mL | New Bag | 07/16/19 | 4 g | 25 mL/hr | | | IVPB 4 g 4 g, Intravenous, | | 19 10:09 | | | | | Administer over 240 Minutes, | | AM PDT | | | | | ONCE, Fri07/15/18 at 0900, For 1 | | | | | | | dose, Maximum recommended | | | | | | | infusion rate = 1 gram/hour., | | | | | | + +---------+ +-----+ +---+ +---+---+ | | | +---+---+ + +-------+ +-------+---+---+ | pantoprazole (PROTONIX) DR | Given | 07/18/19 | 40 mg | | | | tablet 40 mg 40 mg, Oral, DAILY | | 19 8:05 | | | | | BEFORE BREAKFAST, First dose on | | AM PDT | | | | | 07/15/18 at 0730, Indication: | | | | | | | GERD | | | | | | + +-------+ +-------+---+---+ +-------+ +-------+---+---+ | Given | 07/17/19 | 40 mg | | | | | 19 7:44 | | | | | | AM PDT | | | | +-------+ +-------+---+---+ | Given | 07/16/19 | 40 mg | | | | | 19 6:35 | | | | | | AM PDT | | | | +-------+ +-------+---+---+ +---+---+ | | | +---+---+ + +-------+ +------+---+---+ | polyethylene glycol (MIRALAX) | Given | 07/18/19 | 17 g | | | | powder 17 g 17 g, Oral, DAILY, | | 19 8:05 | | | | | First dose on Fri07/15/18 at | | AM PDT | | | | | 1445, Mix with 8 oz. water., | | | | | | + +-------+ +------+---+---+ +-------+ +------+---+---+ | Given | 07/17/19 | 17 g | | | | | 19 10:03 | | | | | | AM PDT | | | | +-------+ +------+---+---+ | Given | 07/16/19 | 17 g | | | | | 19 5:19 | | | | | | PM PDT | | | | +-------+ +------+---+---+ +---+---+ | | | +---+---+ + +-------+ +--------+---+---+ | pregabalin (LYRICA) capsule 300 | Given | 07/17/19 | 300 mg | | | | mg 300 mg, Oral, DAILY EVENING, | | 19 6:23 | | | | | First dose on Fri07/14/18 at 1800 | | PM PDT | | | | + +-------+ +--------+---+---+ +-------+ +--------+---+---+ | Given | 07/16/19 | 300 mg | | | | | 19 5:18 | | | | | | PM PDT | | | | +-------+ +--------+---+---+ | Given | 07/15/19 | 300 mg | | | | | 19 6:12 | | | | | | PM PDT | | | | +-------+ +--------+---+---+ +---+---+ | | | +---+---+ + +---------+ +--------+-------+---+ | sodium chloride 0.9% (NS) bolus | New Bag | 07/15/19 | 1,000 | 2000 | | | 1,000 mL 1,000 mL, Intravenous, | | 19 12:18 | mLs | mL/hr | | | Administer over 30 Minutes, | | PM PDT | | | | | ONCE, e 07/14/18 at 1245, For 1 | | | | | | | dose | | | | | | + +---------+ +--------+-------+---+ +---+---+ | | | +---+---+ + +---------+ +--------+-------+---+ | sodium chloride 0.9% (NS) bolus | New Bag | 07/15/19 | 1,000 | 2000 | | | 1,000 mL 1,000 mL, Intravenous, | | 19 1:00 | mLs | mL/hr | | | Administer over 30 Minutes, | | PM PDT | | | | | ONCE, e 07/14/18 at 1330, For 1 | | | | | | | dose | | | | | | + +---------+ +--------+-------+---+ +---+---+ | | | +---+---+ + +---------+ +---------+-------+---+ | sodium chloride 0.9% (NS) bolus | New Bag | 07/16/19 | 250 mLs | 125 | | | 250 mL 250 mL, Intravenous, | | 19 12:48 | | mL/hr | | | Administer over 2 Hours, ONCE, | | AM PDT | | | | | 07/15/18 at 0100, For 1 dose | | | | | | + +---------+ +---------+-------+---+ +---+---+ | | | +---+---+ + +---------+ +--------+-------+---+ | sodium chloride 0.9% (NS) | New Bag | 07/16/19 | 1,000 | 125 | | | infusion at 125 mL/hr, | | 19 6:03 | mLs | mL/hr | | | Intravenous, CONTINUOUS, Starting | | AM PDT | | | | | 07/14/18 at 1630 | | | | | | + +---------+ +--------+-------+---+ +---------+ +--------+-------+---+ | New Bag | 07/15/19 | 1,000 | 125 | | | | 19 9:44 | mLs | mL/hr | | | | PM PDT | | | | +---------+ +--------+-------+---+ | New Bag | 07/15/19 | | 125 | | | | 19 5:17 | | mL/hr | | | | PM PDT | | | | +---------+ +--------+-------+---+ +---+---+ | | | +---+---+ + +-------+ +--------+---+---+ | tamsulosin (FLOMAX) capsule 0.4 | Given | 07/17/19 | 0.4 mg | | | | mg 0.4 mg, Oral, NIGHTLY, First | | 19 9:27 | | | | | dose on Fri07/14/18 at 2100, May | | PM PDT [...] +-------+ +--------+---+---+ +-------+ +--------+---+---+ | Given | 07/16/19 | 0.4 mg | | | | | 19 9:10 | | | | | | PM PDT | | | | +-------+ +--------+---+---+ | Given | 07/15/19 | 0.4 mg | | | | | 19 8:48 | | | | | | PM PDT | | | | +-------+ +--------+---+---+ +---+---+ | | | +---+---+ documented in this encounter
--- OUTSIDE RECORDS SUMMARY | ~2019-02-17 | XMS | Encounter Summary ---
Demographics + + + | Address | [address] | | | [place] [address] | + + + | Home Phone [...] Team Providers + +------+ + | Care Filler Operator Name | Role | Phone | [...] | +--------+ + + + + | 07/07/ | Hospital | [facility] | Richard Castillo | Acute renal failure | | 2019 - | Encounter | HOSP[facility] MED SUR[facility] | MD Renato [address] | with other specified | | | | [address] [place] | [address] [place] | pathological lesion | | 07/10/ | | [place], [place] | [place] [address] | in kidney (HCC) | | 2019 | | [phone] | [phone] | (Primary Dx); | | | | [phone] | | Leukocytosis, | | | | | Fernando Ibrahim MD | unspecified type; | | | | | [address] [place] | Hypotension due to | | | | | [place] [address] | hypovolemia; VIKAS | | | | | [phone] | (acute kidney | | | | | | injury) (HCC) | | | | | Kasey Salinas, DISPLAY SPECIALIST | | | | | | [address] | | | | | | [place] [address] | | | | | | [phone] | | | | | | | [...] + + + | Blood Pressure | 169/80 | 07/10/2018 7:38 AM | | | | | PDT | | + + + + + | Pulse | 74 | 07/10/2018 11:12 AM | | | | | PDT | | + + + + + | Temperature | 36.6 C (97.88 F) | 07/10/2018 7:38 AM | | | | | PDT | | + + + + + | Respiratory Rate | 18 | 07/10/2018 7:38 AM | | | | | PDT | | + + + + + | Oxygen Saturation | 94% | 07/10/2018 11:12 AM | | | | | PDT | | + + + + + | Inhaled Oxygen | - | - | | | Concentration | | | | + + + + + | Weight | 97.5 kg (214 lb 15.2 | 07/08/2018 4:03 AM | | | | oz) | PDT | | + + + + + | Height | 167.6 cm (5' 6") | 07/08/2018 3:46 AM | | | | | PDT | | + + + + + | Body Mass Index | 34.69 | 07/08/2018 3:46 AM | | | | | PDT [...] encounter Discharge Summaries Kasey Salinas NP - 07/10/2018 9:51 AM PDTFormatting of this note might be different fr om the original. MEDICAL HOSPITALIST DISCHARGE SUMMARY Pt. Name/Age/: Geraldo Mcfadden 78 y.o. 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) Resolved Problems: Orthostatic hypotension Dehydration Leukocytosis Additional discharge history/co-morbidities: Active Ambulatory Problems Diagnosis [...] nonseasonal allergic rhinitis due to pollen 03/07/2017 custodial current use of aspirin 03/07/2017 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, left custodial current use of opiate analgesic 06/27/2017 Current use of beta marly 06/30/2017 Panlobular emphysema 08/08/2017 Atherosclerosis of [place] coronary artery of [place] heart without angina pectoris 08/08 On potassium wasting diuretic therapy 08/08/2017 Primary osteoarthritis involving multiple joints 09/30/2017 Vitamin D deficiency disease 09/30/2017 History of bacterial pneumonia 03/16/2018 Insomnia secondary to chronic pain 04/08/2018 Hx of transient ischemic attack (TIA) 04/10/2018 Coordination of complex care 06/01/2018 Resolved Ambulatory Problems Diagnosis Date Noted Essential hypertension 03/07/2017 Community acquired pneumonia, unspecified laterality 08/15/2017 Neck pain, chronic 12/15/2017 Chronic bilateral low back pain without sciatica 12/15/2017 Generalized weakness 01/09/2018 Dehydration 01/09/2018 Chronic bilateral low back pain without sciatica 02/19/2018 Hypoxia 03/16/2018 Neutrophilic leukocytosis 03/17/2018 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 of non-steroidal anti-inflammatories (NSAID) 04/08/2018 Syncope and collapse 05/19/2018 Acute renal failure (ARF) 05/26/2018 CAP (community acquired pneumonia) 05/26/2018 Hypomagnesemia 05/26/2018 Diabetic polyneuropathy associated with type 2 diabetes mellitus 06/27/2018 Past Medical History: Diagnosis Date Carpal tunnel syndrome, bilateral 05/31/2013 DDD (degenerative disc disease), cervical 05/22/2013 Diabetes mellitus GERD (gastroesophageal reflux disease) Gout Hiatal hernia Hypertension Melanoma Melanoma 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, left Neck pain, chronic 05/22/2013 Neuropathy Paresthesias - both hands 05/22/2013 Thyroid disease Discharge Medication Reconciliation: Discharge Medications Changed Medications Details levothyroxine 75 MCG tablet Take 3 tablets by mouth every morning (before breakfast) for 30 days. What changed: medication strength how much to take aka: SYNTHROID Start: 07/11/2018 Unchanged Medications Details aspirin 325 mg tablet [...] Units under the skin nightly. aka: LANTUS loperamide 2 mg capsule Take 2 mg by mouth 4 times daily as needed for Diarrhea. aka: IMODIUM losartan 50 mg tablet Take 1 tablet by mouth every morning. aka: COZAAR omeprazole 20 mg capsule Take 1 capsule by mouth every morning (before breakfast). aka: priLOSEC ondansetron 4 mg disintegrating tablet Take 1 tablet by mouth every 8 hours as needed for Nausea. aka: ZOFRAN ODT oxyCODONE 30 MG immediate release tablet Take 1 tablet by mouth every 8 hours as needed for Pain. aka: ROXICODONE pregabalin 300 MG capsule Take 1 capsule by mouth every evening. aka: LYRICA tamsulosin 0.4 mg Caps Take 1 capsule by mouth nightly. aka: FLOMAX testosterone 2 mg/[address] 1 patch onto the skin nightly. aka: ANDRODERM traZODone 50 mg tablet Take 2 tablets by mouth nightly. aka: DESYREL urea 40 % Crea Apply to affected areas daily aka: JOSIE Clinical Resume: Geraldo Mcfadden is a 78 y.o. male with the above past medical history that presented to the Emergency Department on 07/07/2018 with Profound weakness. The patient had recently had d iarrhea and was seen in the emergency department (07/05/18). He had a CT scan with contrast at that time. His creatinine prior to the CT was 1.3. He was discharged home and his diarr hea resolved. He noted his weakness got progressively worse over the following 2 days and p resented to the emergency department. In the Emergency Department his creatinine was found to be 4.6 the BUN of 69. White blood cell count was elevated at 17,000. TSH 9.27. Chest x-ray was negative for acute process. The patient was admitted to the medical surgical floor on continuous IV fluids. He was ini tially started on IV ciprofloxacin and Flagyl due to his elevated white blood cell count and previous CT findings of possible colitis. Repeat chest x-ray after IV hydration again had no acute findings. UA was obtained and negative for UTI. UA did show granular and hyaline casts. Renal ultrasound showed no acute findings. The patient had no urine output the nigh t of admission. He was hypotensive with blood pressures in the 80s systolically. He was jacque lused with IV fluids and given continuous IV fluids. He began to produce adequate amounts o f urine. Creatinine has improved over the following 2 days and is 1.2 today. The patient's blood pressures have improved to the 150s to 160s. His home blood pressure medications wer e restarted. Plan to discharge Home today with instructions to follow-up with his PCP in 1 week. Prescr iption for levothyroxine increased to 225 g daily was faxed to the [place] pharmacy. The patie nt will need follow-up TSH in 6 weeks. Recommend follow-up basic metabolic panel to evaluat e renal function in 1 week at his PCP follow-up. He was instructed to avoid all NSAIDs. He did mention he takes naproxen at night at times. Pending inpatient studies at time of discharge: None Disposition: Home Follow-Up Plans: Horacio Silvestre DO [address] [facility] [place] [address] In 1 week Hospital follow up Physical Examination: General: Awake, alert, ambulating in room Cardiovascular: RRR, audible s1 and s2 Respiratory: Clear throughout bilaterally Abdomen: Soft, non-tender to palpation Extremities: No edema Skin: Intact Neurological: A&O x3, moving all extremities Psychiatric: Appropriate affect Significant tests and procedures during admission: Xr [...] osclerosis coronary arteries. Dictated by: Troy Lawrence Ct Abdomen Pelvis W Contrast Result Date: [...] finding. 2. Right renal cyst. Dictated by: Tory Lawrence Electronic ally Signed by: Troy Lawrence on 07/08/2018 2:26 PM Microbiology Results (Last 14 Days by Collected Date with Culture/Sensitivity) Procedure Component Value Units Date/Time Clostridium difficile [[id number]] Order Status: Canceled Lab Status: No result Specimen: Stool from Stool Culture, Blood [[id number]] (Normal) Collected: 07/08/18 0245 Order Status: Completed Lab Status: Preliminary result Updated: 07/10/18250 Specimen: Blood from Peripheral Blood Culture No growth: Monitored continually by instrument for 5 days Culture, Blood [[id number]] (Normal) Collected: 07/08/18 0235 Order Status: Completed Lab Status: Preliminary result Updated: 07/10/18250 Specimen: Blood Culture No growth: Monitored continually by instrument for 5 days Time spent discharging this patient: 30 min Electronically Signed: CHANTEL Hillman 07/10/2018 documented in this encounter Discharge Instructions Instructions Kasey Salinas NP - 07/10/2018Avoid all NSAIDS AttachmentsThe following attachments cannot be sent through Care Everywhere.Kidney Injury, Acute, Discharge Instructions for (Spanish)documented in this encounter Medications at Time of [...] mg | Take 1 tablet by | 90 | 1 | 06/03/19 | | | tablet | mouth every [...] | 3 | 06/25/19 | | | hydroCHLOROthiazide | mouth every [...] | 3 | 06/25/19 | | | 50 mg tablet | [...] oxyCODONE | Take 1 tablet by | 84 | 0 | 07/02/19 | | | (ROXICODONE) 30 MG | mouth every 8 hours | tablet | | 19 | 9 | | immediate release | as needed for Pain. 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 PHARMACY SERVICES: DISCHARGE MEDICATION TEACHING Geraldo Mcfadden is a 78 y.o. male admitted on 07/08/2018 for generalized weakness and wa s discharged on 07/10/2018. Discharge Medications Changed Medications Details levothyroxine 75 MCG tablet Take 3 tablets by mouth every morning (before breakfast) for 30 days. What changed: medication strength how much to take aka: SYNTHROID Start: 07/11/2018 Unchanged Medications Details aspirin 325 mg tablet [...] Units under the skin nightly. aka: LANTUS loperamide 2 mg capsule Take 2 mg by mouth 4 times daily as needed for Diarrhea. aka: IMODIUM losartan 50 mg tablet Take 1 tablet by mouth every morning. aka: COZAAR omeprazole 20 mg capsule Take 1 capsule by mouth every morning (before breakfast). aka: priLOSEC ondansetron 4 mg disintegrating tablet Take 1 tablet by mouth every 8 hours as needed for Nausea. aka: ZOFRAN ODT oxyCODONE 30 MG immediate release tablet Take 1 tablet by mouth every 8 hours as needed for Pain. aka: ROXICODONE pregabalin 300 MG capsule Take 1 capsule by mouth every evening. aka: LYRICA tamsulosin 0.4 mg Caps Take 1 capsule by mouth nightly. aka: FLOMAX testosterone 2 mg/[address] 1 patch onto the skin nightly. aka: ANDRODERM traZODone 50 mg tablet Take 2 tablets by mouth nightly. aka: DESYREL urea 40 % Crea Apply to affected areas daily aka: CARMOL Patient was counseled on the above mentioned discharge medications. All questions were addr essed at the time of discharge counseling. Electronically signed by: Clarence Coulter, PharmMercedes 07/10/2018 11:44 Hilda Wells, DISPLAY SPECIALIST - 07/09/2018 11:08 AM PDTFormatting of this note might be different from the origi nal. MEDICAL HOSPITALIST TEAM PROGRESS NOTE Name:Geraldo Mcfadden [facility] Day # 1 Assessment and Plan: Reason for admission and continued stay: Geraldo Mcfadden is a 78 y.o. male hospitalized for VIKAS (acute kidney injury) (HCC) Principal Problem: VIKAS (acute kidney injury) Active Problems: Acquired hypothyroidism Type 2 diabetes mellitus with diabetic polyneuropathy, with long-term current use of insu gely Hx of transient ischemic attack (TIA) Orthostatic hypotension Dehydration Leukocytosis Resolved Problems: * No resolved hospital problems. * VIKAS: due to ATN from IV contrast. Improving significantly with IV hydration Continue NS @ 100 ml/h STARLA wright DM2: Uncontrolled. Hemoglobin a1c 9.2. Fasting bg 122 this am. Much improved. Continue Lantus 35 units nightly CBG ac and hs Lispro 6 units with meals in addition to low dose SSI ac and hs Consistent carb diet Leukocytosis: resolved. No evidence of infection. A-febrile Continue to monitor for fevers Abx dc'd Hypotention: resolved Am Labs: cbc, bmp, mg Anticipated days until discharge: 1-2 days Subjective/ROS: States weakness is much improved. Denies fevers/chills, chest pain, shortness breath, naus ea, vomiting, diarrhea. Objective: Most recent vital signs: BP 118/70 | Pulse 71 | Temp 37 C (98.6 F) | Resp 18 | Ht 1.676 m (5' 6") | Wt 97.5 kg (214 lb 15.2 oz) | SpO2 93% | BMI 34.69 kg/m Vital sign ranges for last 24hrs: Input and output for last 24hrs: Temp: [36.5 C (97.7 F)-37.2 C (98.96 F)] 37 C (98.6 F) Pulse: [67-89] 71 Resp: [18-20] 18 BP: (86-153)/(52-71) 118/70 SpO2 Av.8 % Min: 89 % Max: 97 % Flow (L/min) Av.6 Min: 1.5 Max: 2 07/07 1901 - 07/09 0700 In: 6153 [P.O.:940; I.V.:2313] Out: 3275 [Urine:3275] Physical Examination: General: Awake, alert laying in bed Cardiovascular: Regular rate and rhythm, audible S1 and S2 Respiratory: Clear throughout bilaterally Abdomen: Soft, nontender to palpation Extremities: No edema Skin: Intact Neurological: A and O 3 moving all extremities Psychiatric: Appropriate affect, no hallucinations. Last 8 glucose values: Recent Labs Lab 07/09/18 0757 07/09/18 0627 07/08/18 2114 07/08/18 1656 07/08/18 1450 07/08/18 1105 07/08/18 0846 07/08/18 0814 07/07/18 2120 07/05/18 1340 POCGLU 122* -- 155* 212* 199* 212* -- 163* -- -- GLU -- 130* -- -- -- -- 161* -- 193* 248* Labs/Studies: Recent Labs Lab 07/09/1862607/08/1846 07/07/18211907/05/18 1340 WBC 10.4 16.2* 17.0* 13.6* HGB 12.9* 12.5* 13.0* 16.7 HCT 38.7* 38.2* 39.8 49.5 PLT 110* 104* Adequate | 113* Adequate | 164 Recent Labs Lab 07/09/1862607/08/1846 07/07/18211907/05/18 1340 NA 141 136 137 136 K 3.5 4.0 3.9 4.0 CL 107 103 103 99 CO2 22* 18* 20* 22* BUN 43* 69* 63* 31* CREA 2.19* 4.68* 4.45* 1.32 GLU 130* 161* 193* 248* CALCIUM 7.6* 7.0* 7.4* 9.8 BILITOT -- -- 0.8 1.4* AST -- -- 33 42* ALT -- -- 42 56 ALKPHOS -- -- 71 75 ALBUMIN -- -- 3.4 4.9* Xr Chest Pa And Lateral Result Date: [...] osclerosis coronary arteries. Dictated by: Troy Lawrence Us Renal Complete Result Date: 07/08/2018 [...] by: Troy Lawrence on 07/08/2018 2:26 PM Electronically Signed: JASON HillmanC 07/09/2018 Portions of this chart may have been created with voice recognition software. Occasional wo rd or "sound-alike" substitutions may have occurred due to the inherent limitation of voice recognition software. Read the chart carefully and recognize, using context, where these sub stitutions have occurred. Kasey Wells NP - 07/08/2018 12:44 PM PDT MEDICAL HOSPITALIST TEAM PROGRESS NOTE Name:Geraldo Mcfadden [facility] Day # 0 Assessment and Plan: Reason for admission and continued stay: Geraldo Mcfadden is a 78 y.o. male hospitalized for VIKAS (acute kidney injury) (HCC) Principal Problem: VIKAS (acute kidney injury) Active Problems: Acquired hypothyroidism Type 2 diabetes mellitus with diabetic polyneuropathy, with long-term current use of insu gely Hx of transient ischemic attack (TIA) Orthostatic hypotension Dehydration Leukocytosis Resolved Problems: * No resolved hospital problems. * VIKSA: Baseline creatinine approximately 1.1. Creatinine on admission 4.4 and today 4.6. Henok rogers had recent diarrheal illness that has resolved. He had a CT with contrast 3 days ago. He takes losartan and hydrochlorothiazide. He takes naproxen. He has a history of nephro lithiasis. He had no urine output overnight. Bladder ultrasound showing small amount of ur ine. Place Wright catheter Urinalysis with microscopic evaluation shows granular and hyaline casts Random urine sodium of 60 Renal ultrasound showed no acute process Give additional 1 L of IV fluids Change IV fluids to normal saline at 100 mls per hour Holding losartan and hydrochlorothiazide Avoid all nephrotoxic agents DC any NSAIDs Home Lyrica decreased to 75 mg daily due to low creatinine clearance Holding home Cymbalta and colchicine due to low creatinine clearance DM type II: Unknown control. Currently with hyperglycemia. Add on A1c Start home Lantus 35 units nightly CBG before meals and at bedtime Lispro insulin 6 units with meals in addition to low-dose sliding scale before meals and at bedtime Consistent carbohydrate diet Leukocytosis: Denies fevers or chills. CT from 3 days ago showed thickening of the rectum does sigmoid colon wall. Patient's diarrhea resolved 2 days ago. He has no abdominal pain. He is afebrile. He denies cough or shortness of breath. He denies dysuria or hematuria. Chest x-ray from the emergency department showed no definite acute finding. Repeat chest x-ray negative for acute process UA with C&S if indicated negative DC abx Hypotension: Hold home antihypertensives Fluid bolus as above History of TIA: Continue aspirin and Plavix Hypothyroidism: TSH elevated at 9 in the emergency department. Patient takes levothyroxine 200 g daily. He states he does take it on an empty stomach at least 30 minutes before me als. Increase levothyroxine to 225 g daily AM Labs: CBC, BMP, mag Anticipated days until discharge: 3-4 days Subjective/ROS: Patient states feels generally weak. Denies fevers/chills, chest pain, shortness of breath , nausea, vomiting, diarrhea. Denies hematuria/dysuria. Denies any recent prednisone or st eroids of any kind. Objective: Most recent vital signs: BP (!) 116/93 | Pulse 67 | Temp 36.6 C (97.9 F) (Oral) | Resp 16 | Ht 1.676 m (5' 6 ") | Wt 97.5 kg (214 lb 15.2 oz) | SpO2 90% | BMI 34.69 kg/m Vital sign ranges for last 24hrs: Input and output for last 24hrs: Temp: [36.1 C (97 F)-36.6 C (97.9 F)] 36.6 C (97.9 F) Pulse: [65-83] 67 Resp: [14-20] 16 BP: (53-116)/(34-93) 116/93 SpO2 Av.4 % Min: 89 % Max: 95 % Flow (L/min) Av.2 Min: 2 Max: 3 07/061 - 07/08 0700 In: 6 [I.V.:256] Out: - Physical Examination: General: Awake, alert, upright in chair Cardio: Regular rate and rhythm, audible S1 and S2 Resp: Clear throughout bilaterally Abd: Obese, soft, nontender to palpation Extremities: no edema Skin: intact Neurological: a and O 3 moving all extremities Psychiatric: appropriate affect, no hallucinations. Last 8 glucose values: Recent Labs Lab 07/08/18 1105 07/08/18 0846 07/08/18 0814 07/07/18211907/05/18 1340 POCGLU 212* -- 163* -- -- GLU -- 161* -- 193* 248* Labs/Studies: Recent Labs Lab 07/08/18 0846 07/07/18211907/05/18 1340 WBC 16.2* 17.0* 13.6* HGB 12.5* 13.0* 16.7 HCT 38.2* 39.8 49.5 PLT 104* Adequate | 113* Adequate | 164 Recent Labs Lab 07/08/18 0846 07/07/18211907/05/18 1340 NA 136 137 136 K 4.0 3.9 4.0 CL 103 103 99 CO2 18* 20* 22* BUN 69* 63* 31* CREA 4.68* 4.45* 1.32 GLU 161* 193* 248* CALCIUM 7.0* 7.4* 9.8 BILITOT -- 0.8 1.4* AST -- 33 42* ALT -- 42 56 ALKPHOS -- 71 75 ALBUMIN -- 3.4 4.9* Pertinent micro results: Microbiology Results (Last 7) Date with Culture/Sensitivity) Procedure Component Value Units Date/Time Culture, Blood [[id number]] Collected: 07/08/18244 Order Status: Sent Lab Status: In process Updated: 07/08/18246 Specimen: Blood from Peripheral Blood Culture, Blood [[id number]] Collected: 07/08/18 0235 Order Status: Sent Lab Status: In process Updated: 07/08/18247 Specimen: Blood Xr Chest Pa And Lateral Result Date: [...] osclerosis coronary arteries. Dictated by: Troy Lawrence Electronically Signed: Kasey [place] NP-C 07/08/2018 Portions of this chart may have been created with voice recognition software. Occasional wo rd or "sound-alike" substitutions may have occurred due to the inherent limitation of voice recognition software. Read the chart carefully and recognize, using context, where these sub stitutions have occurred. Vivek Candelario Ph armD - 07/08/2018 10:27 AM PDTMedication History Completed Medication history was completed using: -interview with patient -medication list from recent discharge (05/26/18) Major discrepancies noted: per patient interview and chart review patient started on sae mide prn for diarrhea (added to list). Oxycodone mg dose changed from oxycodone 10mg take 3 tablets daily(qam) prn to oxycodone 30mg tablet q8h prn. Please see HAZARDOUS MATERIAL TECHNICIAN med list for updated medication list. Electronically Signed by: Vivek Juares PharmD 07/08/2018 10:27 documented in th is encounter Plan of [...] [place] | | | | | | [address] | | | | | | [phone] | | | | | | | | +--------+---------+ + + + | 02/26/ | Office | Urology | Lillie Fowler | | | 2019 | Visit | | LILLIE Lopez [address] | | | | | | [address] | | | | | | [place] | | | | | | [address] | | | | | | [phone] | | | | | | | | +--------+---------+ + + + | 03/16/ | Office | Neurology | Theresa, | | | 2018 | Visit | | Karyanne, TUBE DRAWING SUPERVISOR [address] [place], | | | | | | [place] [address] | | | | | | [phone] | | | | | | | | +--------+---------+ + + + | 04/12/ | Office | Primary Care | Massimo Ramos | | | 2019 | Visit | | MD Fer [address] | | | | | | [address] [place] | | | | | | [address] | | | | | | | | +--------+---------+ + + + | 10/03/ | Office | Neurology | Fabián Carias MD | | | 2019 | Visit | | [address] | | | | | | [place] | | | | | | [address] | | | | | | | | +--------+---------+ + + + + +------+--------+ + + | Name | Type | Priori | Associated Diagnoses | Date/Time | | | | ty | | | + +------+--------+ + + | ED INFORMATION | BRIT | Routin | | 07/07/2018 9:05 PM | | EXCHANGE | | e [...] | | | care | | | Tractor 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 | + +--------+ + + + | POC GLUCOSE | Routin | 07/10/2018 | | Results for this | | | e | 11:40 AM | | procedure are in the | | | | PDT | | results section. | + +--------+ + + + | POC GLUCOSE | Routin | 07/10/2018 | | Results for this | | | e | 7:43 AM | | procedure are in the | | | | PDT | | results section. | + +--------+ + + + | CBC WITH | Routin | 07/10/2018 | | Results for this | | DIFFERENTIAL | e | 6:00 AM | | procedure are in the | | | | PDT | | results section. | + +--------+ + + + | MAGNESIUM | Routin | 07/10/2018 | | Results for this | | | e | 6:00 AM | | procedure are in the | | | | PDT | | results section. | + +--------+ + + + | BASIC METABOLIC | Routin | 07/10/2018 | | Results for this | | PANEL | e | 6:00 AM | | procedure are in the | | | | PDT | | results section. | + +--------+ + + + | POC GLUCOSE | Routin | 07/09/2018 | | Results for this | | | e | 8:31 PM | | procedure are in the | | | | PDT | | results section. | + +--------+ + + + | POC GLUCOSE | Routin | 07/09/2018 | | Results for this | | | e | 4:42 PM | | procedure are in the | | | | PDT | | results section. | + +--------+ + + + | POC GLUCOSE | Routin | 07/09/2018 | | Results for this | | | e | 11:25 AM | | procedure are in the | | | | PDT | | results section. | + +--------+ + + + | POC GLUCOSE | Routin | 07/09/2018 | | Results for this | | | e | 7:57 AM | | procedure are in the | | | | PDT | | results section. | + +--------+ + + + | CBC WITH | Routin | 07/09/2018 | | Results for this | | DIFFERENTIAL | e | 6:27 AM | | procedure are in the | | | | PDT | | results section. | + +--------+ + + + | BASIC METABOLIC | Routin | 07/09/2018 | | Results for this | | PANEL | e | 6:27 AM | | procedure are in the | | | | PDT | | results section. | + +--------+ + + + | ECG - EXTERNAL SCAN | | 07/09/2018 | | Results for this | | | | 12:00 AM | | procedure are in the | | | | PDT | | results section. | + +--------+ + + + | POC GLUCOSE | Routin | 07/08/2018 | | Results for this | | | e | 9:14 PM | | procedure are in the | | | | PDT | | results section. | + +--------+ + + + | POC GLUCOSE | Routin | 07/08/2018 | | Results for this | | | e | 4:56 PM | | procedure are in the | | | | PDT | | results section. | + +--------+ + + + | POC GLUCOSE | Routin | 07/08/2018 | | Results for this | | | e | 2:50 PM | | procedure are in the | | | | PDT | | results section. | + +--------+ + + + | US RENAL COMPLETE | Routin | 07/08/2018 | | Results for this | | | e | 2:07 PM | | procedure are in the | | | | PDT | | results section. | + +--------+ + + + | XR CHEST PA AND | Routin | 07/08/2018 | | Results for this | | LATERAL | e | 1:45 PM | | procedure are in the | | | | PDT | | results section. | + +--------+ + + + | URINALYSIS WITH | Routin | 07/08/2018 | | Results for this | | MICROSCOPIC WITH | e | 1:00 PM | | procedure are in the | | CULTURE IF INDICATED | | PDT | | results section. | + +--------+ + + + | SODIUM, URINE, | Routin | 07/08/2018 | | Results for this | | RANDOM | e | 1:00 PM | | procedure are in the | | | | PDT | | results section. | + +--------+ + + + | POC GLUCOSE | Routin | 07/08/2018 | | Results for this | | | e | 11:05 AM | | procedure are in the | | | | PDT | | results section. | + +--------+ + + + | CBC WITH | Routin | 07/08/2018 | | Results for this | | DIFFERENTIAL | e | 8:46 AM | | procedure are in the | | | | PDT | | results section. | + +--------+ + + + | HEMOGLOBIN A1C | Add-On | 07/08/2018 | | Results for this | | | | 8:46 AM | | procedure are in the | | | | PDT | | results section. | + +--------+ + + + | BASIC METABOLIC | Routin | 07/08/2018 | | Results for this | | PANEL | e | 8:46 AM | | procedure are in the | | | | PDT | | results section. | + +--------+ + + + | POC GLUCOSE | Routin | 07/08/2018 | | Results for this | | | e | 8:14 AM | | procedure are in the | | | | PDT | | results section. | + +--------+ + + + | XR CHEST PA AND | STAT | 07/08/2018 | | Results for this | | LATERAL | | 3:17 AM | | procedure are in the | | | | PDT | | results section. | + +--------+ + + + | CULTURE, BLOOD | STAT | 07/08/2018 | | Results for this | | | | 2:45 AM | | procedure are in the | | | | PDT | | results section. | + +--------+ + + + | CULTURE, BLOOD | STAT | 07/08/2018 | | Results for this | | | | 2:35 AM | | procedure are in the | | | | PDT | | results section. | + +--------+ + + + | ECG 12 LEAD | STAT | 07/07/2018 | | Results for this | | | | 10:12 PM | | procedure are in the | | | | PDT | | results section. | + +--------+ + + + | SLIDE REVIEW, | Routin | 07/07/2018 | | Results for this | | PERIPHERAL SMEAR | e | 9:20 PM | | procedure are in the | | | | PDT | | results section. | + +--------+ + + + | TSH, REFLEX FREE T4 | Add-On | 07/07/2018 | | Results for this | | | | 9:20 PM | | procedure are in the | | | | PDT | | results section. | + +--------+ + + + | TROPONIN I | STAT | 07/07/2018 | | Results for this | | | | 9:20 PM | | procedure are in the | | | | PDT | | results section. | + +--------+ + + + | CBC WITH | STAT | 07/07/2018 | | Results for this | | DIFFERENTIAL | | 9:20 PM | | procedure are in the | | | | PDT | | results section. | + +--------+ + + + | T4, FREE | Routin | 07/07/2018 | | Results for this | | | e | 9:20 PM | | procedure are in the | | | | PDT | | results section. | + +--------+ + + + | B TYPE NATRIURETIC | STAT | 07/07/2018 | | Results for this | | PEPTIDE | | 9:20 PM | | procedure are in the | | | | PDT | | results section. | + +--------+ + + + | LACTIC ACID | STAT | 07/07/2018 | | Results for this | | | | 9:20 PM | | procedure are in the | | | | PDT | | results section. | + +--------+ + + + | COMPREHENSIVE | STAT | 07/07/2018 | | Results for this | | METABOLIC PANEL | | 9:20 PM | | procedure are in the | | | | PDT | | results section. | + +--------+ + + + | ED INFORMATION | Routin | 07/07/2018 | | | | EXCHANGE | e | 9:05 PM | | | | | | PDT | | | + +--------+ + + + +---+--------+ | | | | | Proced | | | ure | | | Note - | | | Louise, | | | Lab In | | | | | | Hlseve | | | n - | | | 04/02/ | | | 2019 | | | 9:06 | | | PM PDT | | [...] | | | ON?04/ | | | 02/201 | | | 9 | | | 21:04? | | | [facility]ADD[facility], | | | KENNET | | | H | | | J?MRN: | | | | | | [id number] | | | [id number] | | | riteri | | | [...] | | Hospit | | | al 11 | | | Total | | | 11 | | | Note: | | | [...] | | out | | | of 11 | | | in the | | [...] | | | ss | | | Mar | | | [...] | | | [place] | | | [employer] | | | al | | | [...] | | | [place] | | | [employer] | | | al | | | [...] | | | ent/e5 | | | [id number] | | | [id number] | | | [...] this encounter Results ECG - EXTERNAL SCAN (07/13/2018 12:00 AM PDT) + + + | Narrative | Performed At | + + + | Ordered by an | | | unspecified provider. | | + + + POC Glucose (07/10/2018 11:40 AM PDT) + +---------+ + + + [...] + + | [facility] | [address] | [place] [address] | [phone] | | [facility] | | | | + + + + + POC Glucose (07/10/2018 7:43 AM PDT) + +-------+ + + + [...] + + | [facility] | [address] | [place] [address] | [phone] | | [facility] | | | | + + + + + Magnesium (07/10/2018 6:00 AM PDT) + +---------+ + + + [...] + + | [facility] | [address] | [place] [address] | [phone] | | [facility] | | | | + + + + + Basic Metabolic Panel (07/10/2018 6:00 AM PDT) + +---------+ + + + | Component | Value | Ref Range | Performed | Pathologist | | | | | At | Signature | + +---------+ + + + | Na | 141 | 132 - 143 | [facility] | | | | mmol/L | [facility] | | + +---------+ + + + | K | 3.2 (L) | 3.3 - 4.9 | [facility] | | | | mmol/L | [facility] | | + +---------+ + + + | Cl | 106 | 95 - 108 mmol/L | [facility] | | + +---------+ + + + | CO2 | 22 [...] +---------+ + + + | Glucose | 101 | 70 - 110 mg/dL | [facility] | | + +---------+ + + + | BUN | 24 | 5 - 26 mg/dL | [facility] | | + +---------+ + + + | Creatinine | 1.22 [...] | mL/min/1.73m2 | [facility] | | + +---------+ + + + | Calcium | 8.0 (L) | 8.3 - 10.0 | [facility] | | | | mg/dL | [facility] | | + +---------+ + + + | BUN/Creatin | 19.7 | 7.0 - 24.0 | [facility] | [...] + + | [facility] | [address] | [place] [address] | [phone] | | [facility] | | | | + + + + + CBC with Differential (07/10/2018 6:00 AM PDT) + + + + + [...] + + + + | RBC | 4.04 (L) | 4.36 - 5.83 | [facility] [...] + + + + | Hematocrit | 36.3 (L) | 39.0 - 51.9 % | [facility] | | + + + + + + | MCV | 89.9 | 82.0 - 96.0 fL | [facility] | | + + + + + + | MCH | 30.2 | 27.7 - 32.3 pg | [facility] | | + + + + + + | MCHC | 33.6 | 32.0 - 36.9 | [facility] | | | | | g/dL | [facility] | | + + + + + + | RDW-CV | 15.5 | 0.0 - 17.0 % | [facility] | | | | [facility] | | + + + + + + | Platelet | 115 (L) | 150 - 450 K/uL | [facility] | | | Count | | | [facility] | | | | [facility] | | + + + + + + | MPV | 13.0 (H) | 9.4 - 12.4 fL | [facility] | | [facility] | | + + + + + + | % | 58.9 | 42.0 - 76.0 % | [facility] | | | Neutrophils | | | [facility] | | | | | [facility] | | + + + + + + | % | 14.6 (L) | 20.0 - 40.0 % | [facility] | | | Lymphocytes | | | [facility] | | | | [facility] | | + + + + + + | % Monocytes | 18.0 (H) | 3.0 - 13.0 % | [facility] | | | [facility] | | + + + + + + | % | 5.9 | 0.0 - 7.0 % | [facility] | | | Eosinophils | | | [facility] | | | | | [facility] | | + + + + + + | % Basophils | 0.9 | 0.0 - 2.0 % | [facility] | | | | [facility] | | + + + + + + | % Immature | 1.7 (H) | 0.0 - 0.5 % | [facility] | | | Granulocyte | | | [facility] | | | [facility] | | | | | | [facility] | | + + + + + + | Absolute | 4.96 | 2.80 - 7.70 | [facility] | | | Neutrophils | | K/uL | [facility] | | | | | [facility] | | + + + + + + | Absolute | 1.23 | 1.20 - 3.30 | [facility] | | | Lymphocytes | | K/uL | [facility] | | | | | [facility] | | + + + + + + | Absolute | 1.52 (H) | 0.00 - 0.80 | [facility] [...] | Absolute | 0.08 | 0.00 - 0.20 | [facility] | [...] + + | [facility] | [address] | [place] [address] | [phone] | | [facility] | | | | + + + + + POC Glucose (07/09/2018 8:31 PM PDT) + +---------+ + + + | Component | Value | Ref Range | Performed | Pathologist | | | | | At | Signature | + +---------+ + + + | Glucose, | 136 (H) | 70 - 110 mg/dL | [...] + + | [facility] | [address] | [place] [address] | [phone] | | [facility] | | | | + + + + + POC Glucose (07/09/2018 4:42 PM PDT) + +---------+ + + + | Component | Value | Ref Range | Performed | Pathologist | | | | | At | Signature | + +---------+ + + + | Glucose, | 121 (H) | 70 - 110 [...] + + | [facility] | [address] | [place] [address] | [phone] | | [facility] | | | | + + + + + POC Glucose (07/09/2018 11:25 AM PDT) + +---------+ + + + [...] + + | [facility] | [address] | [place] [address] | [phone] | | [facility] | | | | + + + + + POC Glucose (07/09/2018 7:57 AM PDT) + +---------+ + + + | Component | Value | Ref Range | Performed | Pathologist | | | | | At | Signature | + +---------+ + + + | Glucose, | 122 (H) | 70 - 110 mg/dL | [...] + + | [facility] | [address] | [place] [address] | [phone] | | [facility] | | | | + + + + + CBC with Differential (07/09/2018 6:27 AM PDT) + + + + + + | Component | Value | Ref Range | Performed | Pathologist | | | | | At | Signature | + + + + + + | WBC | 10.4 | 4.6 - 10.5 K/uL | [facility] | | + + + + + + | RBC | 4.24 (L) | 4.36 - 5.83 | [facility] | | | | | M/uL | [facility] | | | [facility] | | + + + + + + | Hemoglobin | 12.9 (L) | 13.1 - 17.4 | [facility] | | | | g/dL | [facility] | [facility] | | + + + + + + | Hematocrit | 38.7 (L) | 39.0 - 51.9 % | [facility] | | + + + + + + | MCV | 91.3 | 82.0 - 96.0 fL | [facility] | | + + + + + + | MCH | 30.4 | 27.7 - 32.3 pg | [facility] | | + + + + + + | MCHC | 33.3 | 32.0 - 36.9 | [facility] | | | | g/dL | [facility] | | + + + + + + | RDW-CV | 15.8 | 0.0 - 17.0 % | [facility] | | | [facility] | | + + + + + + | Platelet | 110 (L) | 150 - 450 K/uL | [...] + + + + | % | 64.4 | 42.0 - 76.0 % | [facility] | | | Neutrophils | | | [facility] | | [facility] | | + + + + + + | % | 13.1 (L) | 20.0 - 40.0 % | [facility] | | | Lymphocytes | | | [facility] | | | | | [facility] | | + + + + + + | % Monocytes | 16.9 (H) | 3.0 - 13.0 % | [facility] | | | | [facility] | | + + + + + + | % | 4.0 | 0.0 - 7.0 % | [facility] [...] + + | % Immature | 1.1 (H) | 0.0 - 0.5 % | [facility] | | | Granulocyte | | | [facility] | | | | | | [facility] | | + + + + + + | Absolute | 6.73 | 2.80 - 7.70 | [facility] | | | Neutrophils | | K/uL | [facility] | | | | | [facility] | | + + + + + + | Absolute | 1.37 | 1.20 - 3.30 | [facility] | | | Lymphocytes | | K/uL | [facility] | | | | | [facility] | | + + + + + + | Absolute | 1.76 (H) | 0.00 - 0.80 | [facility] | | | Monocytes | | K/uL | [facility] | | | | | [facility] | | + + + + + + | Absolute | 0.42 | 0.00 - 0.70 | [facility] | [...] + + | [facility] | [address] | [place] [address] | [phone] | | [facility] | | | | + + + + + Basic Metabolic Panel (07/09/2018 6:27 AM PDT) + + + + + [...] + + + + | K | 3.5 [...] + + + + | BUN | 43 (H) | 5 - 26 mg/dL | [facility] | | | | [facility] | | + + + + + + | Creatinine | 2.19 (H) | 0.70 - 1.40 | [facility] | | | | | mg/dL | [facility] | | | | | [facility] | | + + + + + + | eGFR if not | 29 (L) | >=60 | [facility] | | | | | mL/min/1.73m2 | [facility] | [facility] | | + + + + + + | Calcium | 7.6 (L) | 8.3 - 10.0 | [facility] | | | | | mg/dL | [facility] | | | | | [facility] | | + + + + + + | BUN/Creatin | 19.6 | 7.0 - 24.0 | [facility] | [...] + + | [facility] | [address] | [place] [address] | [phone] | | [facility] | | | | + + + + + ECG - EXTERNAL SCAN (07/09/2018 12:00 AM PDT) + + + | Narrative | Performed At | + + + | Ordered by an | | | unspecified provider. | | + + + POC Glucose (07/08/2018 9:14 PM PDT) + +---------+ + + + [...] + + | [facility] | [address] | [place] [address] | [phone] | | [facility] | | | | + + + + + POC Glucose (07/08/2018 4:56 PM PDT) + +---------+ + + + | Component | Value | Ref Range | Performed | Pathologist | | | | | At | Signature | + +---------+ + + + | Glucose, | 212 (H) | 70 - 110 mg/dL | [...] + + | [facility] | [address] | [place] [address] | [phone] | | [facility] | | | | + + + + + POC Glucose (07/08/2018 2:50 PM PDT) + +---------+ + + + | Component | Value | Ref Range | Performed | Pathologist | | | | | At | Signature | + +---------+ + + + | Glucose, | 199 (H) | 70 - 110 mg/dL | [...] + + | [facility] | [address] | [place] [address] | [phone] | | [facility] | | | | + + + + + US Renal Complete (07/08/2018 2:07 PM PDT) + + | Specimen | + + | | + + + + + | Impressions | Performed At | + + + | IMPRESSION: 1. No acute finding. 2. Right renal cyst. | [facility] | | Dictated by: Troy Lawrence | | + + + + + + | Narrative | Performed At | + + + | EXAMINATION: US RENAL COMPLETE HISTORY: Acute renal failure | [facility] | | COMPARISON STUDY: CT abdomen pelvis 07/05/2018. FINDINGS: Both | | | kidneys have been examined. Anechoic 1.8 cm lesion noted on the | | | right compatible with cyst. Right length 10 cm. Cortical thickness | | | approximately 1.4 cm. The echogenicity is decreased compared to | | | adjacent liver. No hydronephrosis. Left kidney 11.9 cm. | | | Cortical thickness approximately 1.2 cm. No hydronephrosis. | | + + + + + | Procedure Note | + + | Louise, Rad Results In - 07/08/2018 2:30 PM PDT EXAMINATION:US RENAL | | COMPLETEHISTORY:Acute renal failureCOMPARISON STUDY:CT abdomen pelvis | | 07/05/2018.FINDINGS:Both kidneys have been examined. Anechoic 1.8 cm lesion noted on | | the right compatible with cyst. Right length 10 cm. Cortical thickness approximately | | 1.4 cm. The echogenicity is decreased compared to adjacent liver. No | | hydronephrosis.Left kidney 11.9 cm. Cortical thickness approximately 1.2 cm. No | | hydronephrosis.IMPRESSION: IMPRESSION:1. No acute finding.2. Right renal cyst.Dictated | | by: Troy Lawrence | | | |FINDINGS: | |Both kidneys have been examined. Anechoic 1.8 cm lesion noted on the right compatible with cyst. Right length 10 cm. Cortical thickness approximately 1.4 cm. The echogenicity is d ecreased compared to adjacent liver. No hydronephrosis. | | | |Left kidney 11.9 cm. Cortical thickness approximately 1.2 cm. No hydronephrosis. | | | |IMPRESSION: | |IMPRESSION: | |1. No acute finding. | |2. Right renal cyst. | | | | | |Dictated by: Troy Lawrence | | | | | + + + +---------+ + + | Performing | Address | City/State/Zipcode | Phone Number | | Organization | | | | + +---------+ + + | [facility] | | | | + +---------+ + + XR Chest PA and Lateral (07/08/2018 1:45 PM PDT) + + | Specimen | + + | | + + + + + | Impressions | Performed At | + + + | IMPRESSION: 1. No acute finding. 2. Atherosclerosis coronary | [facility] | | arteries. Dictated by: Troy Lawrence | | + + + + + + | Narrative | Performed At | + + + | EXAMINATION: XR CHEST PA AND LATERAL HISTORY: Follow up | [facility] | | COMPARISON STUDY: Chest radiograph 07/08/2018. CT thorax | | | 05/27/2018. FINDINGS: No lobar consolidation, effusion, or nodule | | | is seen. Heart size within normal limits. Atherosclerosis | | | coronary arteries present best appreciated on prior CT study. No | | | acute bone finding. | | + + + + -------+ | Procedure Note | + -------+ | Louise, Rad Results In - 07/08/2018 1:52 PM PDT EXAMINATION:XR CHEST PA AND | | LATERALHISTORY:Follow upCOMPARISON STUDY:Chest radiograph 07/08/2018. CT thorax | | 05/27/2018.FINDINGS:No lobar consolidation, effusion, or nodule is seen. Heart size | | within normal limits. Atherosclerosis coronary arteries present best appreciated on | | prior CT study. No acute bone finding.IMPRESSION: IMPRESSION:1. No acute finding.2. | | Atherosclerosis coronary arteries.Dictated by: Troy Lawrence | |Chest radiograph 07/08/2018. CT thorax 05/27/2018. | | | |FINDINGS: | |No lobar consolidation, effusion, or nodule is seen. Heart size within normal limits. Ath erosclerosis coronary arteries present best appreciated on prior CT study. No acute bone fi nding. | | | |IMPRESSION: | |IMPRESSION: | |1. No acute finding. | |2. Atherosclerosis coronary arteries. | | | | | |Dictated by: Troy Lawrence | | | | | + -------+ + +---------+ + + | Performing | Address | City/State/Zipcode | Phone Number | | Organization | | | | + +---------+ + + | [facility] | | | | + +---------+ + + Sodium, Urine, Random (07/08/2018 1:00 PM PDT) + + + + + + | Component | Value | Ref Range | Performed | Pathologist | | | | | At | Signature | + + + + + + | Sodium, | 66Comment: Reference | mmol/L | [facility] | | | Urine | ranges have not been | | [facility] | | | Random | established on this type | | [facility] | | | | of fluid or specimen. | | [facility] | | + + + + + + + + | Specimen | + + | Urine | + + + + + + + | Performing | Address | City/State/Zipcode | Phone Number | | Organization | | | | + + + + + | [facility] | [address] | [place] [address] | [phone] | | [facility] | | | | + + + + + Urinalysis with Microscopic with Culture if Indicated (07/08/2018 1:00 PM PDT) + + + + + [...] - 1.030 | [facility] | | | [place] | | | [facility] | | | [...] + | WBC UA | 3-5 | <=5 /HPF | [...] + + + | BACTERIA UA | Moderate (A) | None Seen /HPF | [facility] | | | | [facility] | [facility] | | [facility] | | | | | | [facility] | | + + + + + + | AMORPHOUS | Moderate (A) | None Seen /HPF | [facility] | [facility] | | | [facility] | | | | | | [facility] | | + + + + + + | HYALINE | Moderate (A) | None Seen /LPF [...] + + | [facility] | [address] | [place] [address] | [phone] | | [facility] | | | | + + + + + POC Glucose (07/08/2018 11:05 AM PDT) + +---------+ + + + | Component | Value | Ref Range | Performed | Pathologist | | | | | At | Signature | + +---------+ + + + | Glucose, | 212 (H) | 70 - 110 mg/dL | [...] + + | [facility] | [address] | [place] [address] | [phone] | | [facility] | | | | + + + + + Hemoglobin A1C (07/08/2018 8:46 AM PDT) + +---------+ + + + | Component | Value | Ref Range | Performed | Pathologist | | | | | At | Signature | + +---------+ + + + | Hemoglobin | 9.2 (H) | 4.5 - 6.2 % | [facility] | | | [facility] | | | [facility] | | [facility] | | + +---------+ + + + | Estimated | 217 | mg/dL | [facility] | | | [...] + + | [facility] | [address] | [place] [address] | [phone] | | [facility] | | | | + + + + + Basic Metabolic Panel (07/08/2018 8:46 AM PDT) + + + + + [...] + + + + | CO2 | 18 (L) | 23 - 34 mmol/L | [...] + + + + | BUN | 69 (H) | 5 - 26 mg/dL | [facility] | | [facility] | | | | | | [facility] | | + + + + + + | Creatinine | 4.68 (H) | 0.70 - 1.40 | [facility] | | | | | mg/dL | [facility] | | | | | | [facility] | | + + + + + + | eGFR if not | 12 (L) | >=60 | [facility] | | | | | mL/min/1.73m2 | [facility] | | | | | [facility] | | + + + + + + | Calcium | 7.0 (L) | 8.3 - 10.0 | [facility] | | | | | mg/dL | [facility] | | | | | | [facility] | | + + + + + + | BUN/Creatin | 14.7 | 7.0 - 24.0 | [facility] | [...] + + | [facility] | [address] | [place] [address] | [phone] | | [facility] | | | | + + + + + CBC with Differential (07/08/2018 8:46 AM PDT) + + + + + + | Component | Value | Ref Range | Performed | Pathologist | | | | | At | Signature | + + + + + + | WBC | 16.2 (H) | 4.6 - 10.5 K/uL | [facility] | | | | | [facility] | | + + + + + + | RBC | 4.14 (L) | 4.36 - 5.83 | [facility] | | | | | M/uL | [facility] | | | | | | [facility]ATORY | | + + + + + + | Hemoglobin | 12.5 (L) | 13.1 - 17.4 | [facility] | | | | | g/dL | [facility] | | | | | | LAB[facility]ATORY | | + + + + + + | Hematocrit | 38.2 (L) | 39.0 - 51.9 % | [facility] | | | | | | [facility]ORY | | + + + + + + | MCV | 92.3 | 82.0 - 96.0 fL | [facility] | | | | | | [facility] | | + + + + + + | MCH | 30.2 | 27.7 - 32.3 pg | [facility] | [facility] | | | | | | [facility]ORY | | + + + + + + | MCHC | 32.7 | 32.0 - 36.9 | [facility] | [...] + + + + | Platelet | 104 (L) | 150 - 450 K/uL | [facility] | | | Count | | | [facility] | [facility] | | | | | | LAB[facility]ATORY | | + + + + + + | MPV | 12.0 | 9.4 - 12.4 fL | [facility] | | | | | | [facility]ATORY | | + + + + + + | % | 76.8 (H) | 42.0 - 76.0 % | [facility] | | | Neutrophils | | | [facility] | | | | | | LABORATORY | | + + + + + + | % | 7.0 (L) | 20.0 - 40.0 % | [facility] | | | Lymphocytes | | | [...] + + + | % | 2.0 | 0.0 - 7.0 % [...] + + + + | Absolute | 12.41 (H) | 2.80 - 7.70 | [facility] [...] + + + | Absolute | 2.14 (H) | 0.00 - 0.80 | [facility] | | | Monocytes | | K/uL | [facility] | | | | | | LABORATORY | | + + + + + + | Absolute | 0.32 | 0.00 - 0.70 | [facility] | [...] + + | [facility] | [address] | [place] [address] | [phone] | | HOSPITAL LAB[facility]ATORY | | | | + + + + + POC Glucose (07/08/2018 8:14 AM PDT) + +---------+ + + + | Component | Value | Ref Range | Performed | Pathologist | | | | | At | Signature | + +---------+ + + + | Glucose, | 163 (H) | 70 - 110 mg/dL | [...] + + | [facility] | [address] | [place] [address] | [phone] | | H[facility]PITAL [facility]ORY | | | | + + + + + XR Chest PA and Lateral (07/08/2018 3:17 AM PDT) + + | Specimen | + + | | + + + + + | Impressions | Performed At | + + + | IMPRESSION: Limited study related to patient positioning. No | [facility] | | definite acute finding. Atherosclerosis coronary arteries. | | | Dictated by: Troy Lawrence | | + + + + + + | Narrative | Performed At | + + + | EXAMINATION: XR CHEST PA AND LATERAL HISTORY: WEAKNESS | [facility] | | COMPARISON STUDY: CT abdomen pelvis 07/05/2018. CT thorax | | | 05/27/2017. FINDINGS: Patient is lordotic in position which does | | | obscure portions of anatomy. No lobar consolidation, effusion, or | | | nodule seen. Heart size within normal limits. Atherosclerosis | | | coronary arteries present best appreciated on prior CT study. No | | | acute bone finding. | | + + + + + | Procedure Note | + + | Louise, Rad Results In - 07/08/2018 7:04 AM PDT EXAMINATION:XR CHEST PA AND | | LATERALHISTORY:WEAKNESSCOMPARISON STUDY:CT abdomen pelvis 07/05/2018. CT thorax | | 05/27/2017.FINDINGS:Patient is lordotic in position which does obscure portions of | | anatomy. No lobar consolidation, effusion, or nodule seen. Heart size within normal | | limits. Atherosclerosis coronary arteries present best appreciated on prior CT study. | | No acute bone finding.IMPRESSION: IMPRESSION:Limited study related to patient | | positioning. No definite acute finding.Atherosclerosis coronary arteries.Dictated by: | | Troy Lawrence | | | |FINDINGS: | |Patient is lordotic in position which does obscure portions of anatomy. No lobar consolida tion, effusion, or nodule seen. Heart size within normal limits. Atherosclerosis coronary arteries present best appreciated on prior CT study. No acute bone | |finding. | | | |IMPRESSION: | |IMPRESSION: | |Limited study related to patient positioning. No definite acute finding. | | | |Atherosclerosis coronary arteries. | | | |Dictated by: Troy Lawrence | | | | | + + + +---------+ + + | Performing | Address | City/State/Zipcode | Phone Number | | Organization | | | | + +---------+ + + | [facility] | | | | + +---------+ + + Culture, Blood (07/08/2018 2:45 AM PDT) + + + + + [...] + + | [facility] | [address] | [place] [address] | [phone] | | [facility] | | | | + + + + + Culture, Blood (07/08/2018 2:35 AM PDT) + + + + + [...] + + | [facility] | [address] | [place] [address] | [phone] | | [facility] | | | | + + + + + ECG 12 lead (07/07/2018 10:12 PM PDT) + + | Specimen | + + | | + + + + + | Narrative | Performed At | + + + | Heart Rate: 74 | [facility] | | bpmQRS Interval: 98 msQT Interval: 432 msQTC Interval: 480 msP [place]: | [facility] | | 17 degQRS [place]: -47 degT Wave [place]: -5 degP-R Interval: 180 msec- | | | ABNORMAL ECG -SINUS RHYTHM [Remains]LAD, CONSIDER LEFT ANTERIOR | | | FASCICULAR BLOCK [Insig. Chg.]EARLY PRECORDIAL R/S TRANSITION [Less | | | Prom.]NONSPECIFIC T ABNORMALITIES, INFERIOR LEADS [Remains]BORDERLINE | | | PROLONGED QT INTERVAL [Insig. Chg.]NO SIGNIFICANT CHANGE | | |P-R Interval: 180 msec | | |- ABNORMAL ECG - | | |SINUS RHYTHM [Remains] | | |LAD, CONSIDER LEFT ANTERIOR FASCICULAR BLOCK [Insig. Chg.] | | |EARLY PRECORDIAL R/S TRANSITION [Less Prom.] | | |NONSPECIFIC T ABNORMALITIES, INFERIOR LEADS [Remains] | | |BORDERLINE PROLONGED QT INTERVAL [Insig. Chg.] | | |NO SIGNIFICANT CHANGE | | + + + + +---------+ + + | Performing | Address | City/State/Zipcode | Phone Number | | Organization | | | | + +---------+ + + | [facility] | | | | + +---------+ + + T4, Free (07/07/2018 9:20 PM PDT) + +-------+ + + + | Component | Value | Ref Range | Performed | Pathologist | | | | | At | Signature | + +-------+ + + + | FT4 | 0.9 | 0.8 - 1.5 ng/dL | [facility] [...] + + | [facility] | [address] | [place] [address] | [phone] | | [facility] | | | | + + + + + TSH, Reflex Free T4 (07/07/2018 9:20 PM PDT) + + + + + + | Component | Value | Ref Range | Performed | Pathologist | | | | | At | Signature | + + + + + + | TSH | 9.27 (H) | 0.36 - 3.74 | [facility] [...] + + | [facility] | [address] | [place] [address] | [phone] | | [facility] | | | | + + + + + Slide Review, Peripheral Smear (07/07/2018 9:20 PM PDT) + + + + + [...] + + + + + + | Polychromas | Slight (A) | (none) | [facility] | | | ia | | | [facility] | | | [...] | (none) | [facility] | | | Macrocytes | | | [facility] | | | [...] + + | [facility] | [address] | [place] [address] | [phone] | | [facility] | | | | + + + + + B Type Natriuretic Peptide (07/07/2018 9:20 PM PDT) + +-------+ + + + | Component | Value | Ref Range | Performed | Pathologist | | | | | At | Signature | + +-------+ + + + | NT-proBNP | 100 | <=450 pg/mL | [facility] | [facility] | | [facility] | | [facility] [...] + + | [facility] | [address] | [place] [address] | [phone] | | [facility] | | | | + + + + + Troponin I (07/07/2018 9:20 PM PDT) + +-------+ + + + | Component | Value | Ref Range | Performed | Pathologist | | | | | At | Signature | + +-------+ + + + | Troponin I | 0.02 | 0.02 - 0.10 | [facility] | [...] + + | [facility] | [address] | [place] [address] | [phone] | | [facility] | | | | + + + + + Lactic Acid (07/07/2018 9:20 PM PDT) + +-------+ + + + [...] + + | [facility] | [address] | [place] [address] | [phone] | | [facility] | | | | + + + + + Comprehensive Metabolic Panel (07/07/2018 9:20 PM PDT) + + + + + [...] + + + + | CO2 | 20 (L) | 23 - 34 mmol/L | [...] + + + + | Glucose | 193 (H) | 70 - 110 mg/dL | [facility] | [facility] | | | | | [facility] | | + + + + + + | BUN | 63 (H) | 5 - 26 mg/dL | [facility] | [facility] | | | | | [facility] | | + + + + + + | Creatinine | 4.45 (H) | 0.70 - 1.40 | [facility] | | | | | mg/dL | [facility] | | | | | | [facility] | | + + + + + + | eGFR if not | 13 (L)Comment: | >=60 | [facility] | | | | GLOMERULAR FILTRATION | mL/min/1.73m2 | [facility] | | | [facility] | RATE,ESTIMATED | | [facility] | | | | mL/min/1.98y4Druq than | | LABORATORY | | | [...] + + + + | Calcium | 7.4 (L) | 8.3 - 10.0 | [facility] [...] + + + + | Total | 6.6 | 6.6 - 8.5 g/dL | [facility] | | | Protein | | | [facility] | | | | [facility] | | | | | | [facility] | | + + + + + + | AST | 33 | 0 - 38 U/L | [facility] [...] + + + + | Alkaline | 71 | 46 - 116 U/L | [facility] | | | Phosphatase | | | [facility] | | | | | | [facility] | | + + + + + + | Globulin | 3.2 | 2.4 - 4.5 g/dL | [facility] | | | | | [facility] | | | | | | [facility] | | + + + + + + | Albumin/Lizbeth | 1.1 | 0.8 - 2.0 | [facility] | | | bulin Ratio | | | [facility] | | | | | | [facility] | | + + + + + + | BUN/Creatin | 14.2 | 7.0 - 24.0 | [facility] | [...] + + | [facility] | [address] | [place] [address] | [phone] | | [facility] | | | | + + + + + CBC with Differential (07/07/2018 9:20 PM PDT) + + + + + + | Component | Value | Ref Range | Performed | Pathologist | | | | | At | Signature | + + + + + + | WBC | 17.0 (H) | 4.6 - 10.5 K/uL | [...] + | Hemoglobin | 13.0 (L) | 13.1 - 17.4 | [facility] | | | | | g/dL | [facility] | | | | | | [facility] | | + + + + + + | Hematocrit | 39.8 | 39.0 - 51.9 % | [facility] | | | | | | [facility] | | | | | | [facility] | | + + + + + + | MCV | 91.3 | 82.0 - 96.0 fL | [facility] [...] | 32.7 | 32.0 - 36.9 | [facility] | [...] + + + + | Platelet | 113 (L) | 150 - 450 K/uL | [facility] | | | Count | | | [facility] | | | | | | [facility] | | + + + + + + | MPV | 12.4 | 9.4 - 12.4 fL | [facility] | | | | | [facility] | | | | | | [facility] | | + + + + + + | % | 79.6 (H) | 42.0 - 76.0 % | [facility] | | | Neutrophils | | | [facility] | | | | | | [facility] | | + + + + + + | % | 4.4 (L) | 20.0 - 40.0 % | [facility] | | | Lymphocytes | | | [facility] | | | | | | [facility] | | + + + + + + | % Monocytes | 14.2 (H) | 3.0 - 13.0 % | [facility] | | | | | [facility] | | | | | | [facility] | | + + + + + + | % | 0.9 | 0.0 - 7.0 % | [facility] [...] + + + + | Absolute | 13.55 (H) | 2.80 - 7.70 | [facility] | | | Neutrophils | | K/uL | [facility] | | | | | | [facility] | | + + + + + + | Absolute | 0.75 (L) | 1.20 - 3.30 | [facility] | | | Lymphocytes | | K/uL | [facility] | | | | | | [facility] | | + + + + + + | Absolute | 2.42 (H) | 0.00 - 0.80 | [facility] [...] | Absolute | 0.10 | 0.00 - 0.15 | [facility] | [...] + + | [facility] | [address] | [place] [address] | [phone] | | [facility] | | | | + + + + + documented in this encounter Visit Diagnoses + + | Diagnosis | + + | VIKAS (acute kidney injury) (HCC) - Primary Acute kidney failure, unspecified | + + | Acute renal failure with other specified pathological lesion in kidney (HCC) | + + | Leukocytosis, unspecified type | + + | Hypotension due to hypovolemia | + + | Orthostatic hypotension | + + | Dehydration | + + | Acquired hypothyroidism Unspecified hypothyroidism | + + | Type 2 diabetes mellitus with complication, with long-term current use of insulin | | (HCC) | + + | Hx of transient ischemic attack (TIA) Transient ischemic attack (TIA), and cerebral | | infarction without residual deficits | + + documented in this encounter [...] | | | C (101.5 F), Starting Fri07/08/18 | | | at 0337 | | + +---+ | | | + +---+ + +-------+ +--------+---+---+ | aspirin EC tablet 325 mg 325 | Given | 07/11/19 | 325 mg | | | | mg, Oral, DAILY, First dose on | | 19 10:24 | | | | | Fri07/08/18 at 0900 | | AM PDT | | | | + +-------+ +--------+---+---+ +-------+ +--------+---+---+ | Given | 07/10/19 | 325 mg | | | | | 19 8:42 | | | | | | AM PDT | | | | +-------+ +--------+---+---+ | Given | 07/09/19 | 325 mg | | | | | 19 9:31 | | | | | | AM PDT | | | | +-------+ +--------+---+---+ +---+---+ | | | +---+---+ + +-------+ +-------+---+---+ | atorvaSTATin (LIPITOR) tablet | Given | 07/11/19 | 10 mg | | | | 10 mg 10 mg, Oral, EVERY | | 19 10:24 | | | | | MORNING, First dose on Fri07/08/18 | | AM PDT | | | | | at 0900 | | | | | | + +-------+ +-------+---+---+ +-------+ +-------+---+---+ | Given | 07/10/19 | 10 mg | | | | | 19 8:41 | | | | | | AM PDT | | | | +-------+ +-------+---+---+ | Given | 07/09/19 | 10 mg | | | | | 19 9:36 | | | | | | AM PDT | | | | +-------+ +-------+---+---+ +---+---+ | | | +---+---+ + +---------+ +--------+-------+--------+ | ciprofloxacin in dextrose | New Bag | 07/09/19 | 200 mg | 100 | Right | | (CIPRO) IVPB 200 mg 200 mg, | | 19 9:57 | | mL/hr | Arm | | Intravenous, Administer over 60 | | AM PDT | | | | | Minutes, EVERY 24 HOURS (Daily), | | | | | | | First dose on Fri07/08/18 at 0900, | | | | | | | Dose adjusted for CrlCl <30 | | | | | | | mL/min, Indications: | | | | | | | Intra-Abdominal Infection | | | | | | + +---------+ +--------+-------+--------+ +---+---+ | | | +---+---+ + +-------+ +-------+---+---+ | clopidogrel (PLAVIX) tablet 75 | Given | 07/11/19 | 75 mg | | | | mg 75 mg, Oral, EVERY MORNING, | | 19 10:24 | | | | | First dose on Fri07/08/18 at 0900 | | AM PDT | | | | + +-------+ +-------+---+---+ +-------+ +-------+---+---+ | Given | 07/10/19 | 75 mg | | | | | 19 8:42 | | | | | | AM PDT | | | | +-------+ +-------+---+---+ | Given | 07/09/19 | 75 mg | | | | | 19 9:37 | | | | | | AM PDT | | | | +-------+ +-------+---+---+ +---+---+ | | | +---+---+ + +-------+ +--------+---+---+ | cyanocobalamin (VITAMIN B-12) | Given | 07/11/19 | 1,000 | | | | tablet 1,000 mcg 1,000 mcg, | | 19 10:25 | mcg | | | | Oral, EVERY MORNING, First dose | | AM PDT | | | | | on 07/08/18 at 1200 | | | | | | + +-------+ +--------+---+---+ +-------+ +--------+---+---+ | Given | 07/10/19 | 1,000 | | | | | 19 8:41 | mcg | | | | | AM PDT | | | | +-------+ +--------+---+---+ | Given | 07/09/19 | 1,000 | | | | | 19 2:48 | mcg | | | | | PM PDT | | | | +-------+ +--------+---+---+ +---+---+ | | | +---+---+ + +-------+ +--------+---+ + | heparin 5,000 units/mL | Given | 07/11/19 | 5,000 | | Abdomen- | | injection 5,000 Units 5,000 | | 19 10:29 | Units | | LLQ | | Units, Subcutaneous, EVERY 12 | | AM PDT | | | | | HOURS (2 times per day), First | | | | | | | dose on Fri07/08/18 at 0900 | | | | | | + +-------+ +--------+---+ + +-------+ +--------+---+ + | Given | 07/10/19 | 5,000 | | Abdomen- | | | 19 8:57 | Units | | LUQ | | | PM PDT | | | | +-------+ +--------+---+ + | Given | 07/10/19 | 5,000 | | Abdomen- | | | 19 9:00 | Units | | RLQ | | | AM PDT | | | | +-------+ +--------+---+ + + +---+ | | | + +---+ | hydrALAZINE (APRESOLINE) | | | injection 10 mg 10 mg, | | | Intravenous, EVERY 4 HOURS PRN, | | | SBP >180, Starting [place] 07/09/18 at | | | 1616 | | + +---+ | | | + +---+ + +-------+ +-------+---+---+ | hydroCHLOROthiazide tablet 25 | Given | 07/11/19 | 25 mg | | | | mg 25 mg, Oral, EVERY MORNING, | | 19 10:44 | | | | | First dose on Fri07/10/18 at 1015 | | AM PDT | | | | + +-------+ +-------+---+---+ + +---+ | | | + +---+ | influenza quadrivalent | | | (FLUZONE, FLUARIX, AFLURIA | | | QUADRIVALENT) vaccine injection | | | (syringe) 0.5 mL 0.5 mL, | | | Intramuscular, BURIAL AGENT, Starting | | | Fri07/08/18 at 1139, For 1 dose, | | | Give patient education | | | information. Shake prior to use., | | | | | + +---+ | | | + +---+ + +-------+ + +---+ + | insulin glargine (LANTUS) | Given | 07/10/19 | 35 Units | | Arm-Left | | injection (vial) 35 Units 35 | | 19 8:55 | | | Upper | | Units, Subcutaneous, NIGHTLY, | | PM PDT | | | | | First dose on Fri07/08/18 at 2100, | | | | | | | For subcutaneous use only. Basal | | | | | | | (long acting) insulin. Only for | | | | | | | use with U-100 insulin syringe., | | | | | | + +-------+ + +---+ + +-------+ + +---+ + | Given | 07/09/19 | 35 Units | | Arm-Left | | | 19 9:36 | | | Upper | | | PM PDT | | | | +-------+ + +---+ + +---+---+ | | | +---+---+ + +-------+ +---------+---+ + | insulin lispro (humaLOG) | Given | 07/09/19 | 1 Units | | Arm-Righ | | injection (vial) 0-6 Units 0-6 | | 19 5:44 | | | t Upper | | Units, Subcutaneous, 4 TIMES | | PM PDT | | | | | DAILY WITH MEALS & NIGHTLY, First | | | | | | | dose on Fri07/08/18 at 1230, | | | | | | | [...] | | | | AC, NPO, Daytime [phone] Use | | | | | | | NIGHT DOSE for doses scheduled: | | | | | | | HS, 3AM, Nighttime [id number] | | | | | | | Only for use with U-100 insulin | | | | | | | syringe., | | | | | | + +-------+ +---------+---+ + +---+---+ | | | +---+---+ + +-------+ +---------+---+ + | insulin lispro (humaLOG) | Given | 07/11/19 | 6 Units | | Arm-Righ | | injection (vial) 6 Units 6 | | 19 12:09 | | | t Upper | | Units, Subcutaneous, 3 TIMES | | PM PDT | | | | | DAILY WITH MEALS, First dose on | | | | | | | 07/08/18 at 1230, ADJUST DOSE | | | | | | | FOLLOWS: Eating Normally: | | | | | | | FULL prescribed dose NPO (or | | | | | | | <1/4 of meals): Do NOT give | | | | | | | this dose of insulin Less than | | | | | | | half of meal: HALF of this | | | | | | | dose If patient eating | | | | | | | predictably, give insulin dose | | | | | | | immediately before meal. If | | | | | | | intake uncertain or inconsistent, | | | | | | | give mealtime/correction insulin | | | | | | | dose within 15 minutes AFTER | | | | | | | finishing meal. Only for use | | | | | | | with U-100 insulin syringe., | | | | | | + +-------+ +---------+---+ + +-------+ +---------+---+ + | Given | 07/11/19 | 6 Units | | Arm-Left | | | 19 10:26 | | | Upper | | | AM PDT | | | | +-------+ +---------+---+ + | Given | 07/10/19 | 6 Units | | Arm-Left | | | 19 5:06 | | | Upper | | | PM PDT | | | | +-------+ +---------+---+ + +---+---+ | | | +---+---+ + +---------+ +---+-------+---+ | lactated ringers (LR) infusion | New Bag | 07/09/19 | | 100 | | | at 100 mL/hr, Intravenous, | | 19 3:41 | | mL/hr | | | CONTINUOUS, Starting Fri07/08/18 | | AM PDT | | | | | at 0400, For 10 hours | | | | | | + +---------+ +---+-------+---+ +---+---+ | | | +---+---+ + +-------+ +---------+---+---+ | levothyroxine (SYNTHROID) | Given | 07/09/19 | 200 mcg | | | | tablet 200 mcg 200 mcg, Oral, | | 19 7:59 | | | | | DAILY BEFORE BREAKFAST, First | | AM PDT | | | | | dose on Fri07/08/18 at 0730, Give | | | | | | | before breakfast., | | | | | | + +-------+ +---------+---+---+ +---+---+ | | | +---+---+ + +-------+ +---------+---+---+ | levothyroxine (SYNTHROID) | Given | 07/11/19 | 225 mcg | | | | tablet 225 mcg 225 mcg, Oral, | | 19 7:47 | | | | | DAILY BEFORE BREAKFAST, First | | AM PDT | | | | | dose (after last modification) on | | | | | | | [facility] 07/09/18 at 0730, Give before | | | | | | | breakfast., | | | | | | + +-------+ +---------+---+---+ +-------+ +---------+---+---+ | Given | 07/10/19 | 225 mcg | | | | | 19 8:01 | | | | | | AM PDT | | | | +-------+ +---------+---+---+ +---+---+ | | | +---+---+ + +-------+ +-------+---+---+ | losartan (COZAAR) tablet 50 mg | Given | 07/11/19 | 50 mg | | | | 50 mg, Oral, EVERY MORNING, | | 19 10:44 | | | | | First dose on Fri07/10/18 at 1015 | | AM PDT | | | | + +-------+ +-------+---+---+ +---+---+ | | | +---+---+ + +---------+ +-----+ +---+ | magnesium sulfate 4 g/100 mL | New Bag | 07/11/19 | 4 g | 25 mL/hr | | | IVPB 4 g 4 g, Intravenous, | | 19 10:38 | | | | | Administer over 240 Minutes, | | AM PDT | | | | | ONCE, 07/10/18 at 0900, For 1 | | | | | | | dose, Maximum recommended | | | | | | | infusion rate = 1 gram/hour., | | | | | | + +---------+ +-----+ +---+ + +---+ | | | + +---+ | metoclopramide (REGLAN) 5 mg/mL | | | injection 10 mg 10 mg, | | | Intravenous, EVERY 4 HOURS PRN, | | | Nausea, Vomiting, Starting Wed | | | 07/08/18 at 0337, Use if | | | ondansetron and prochlorperazine | | | ineffective after 30 minutes or | | | not ordered Protect from light., | | + +---+ | | | + +---+ + +---------+ +--------+-------+---+ | metroNIDAZOLE in saline | New Bag | 07/09/19 | 500 mg | 100 | | | (FLAGYL) IVPB 500 mg 500 mg, | | 19 5:41 | | mL/hr | | | Intravenous, Administer over 1 | | AM PDT | | | | | Hours, EVERY 8 HOURS (3 times per | | | | | | | day), First dose on Fri07/08/18 | | | | | | | at 0600, Do not refrigerate., | | | | | | | Indications: ENTERITIS AND | | | | | | | COLITIS | | | | | | + +---------+ +--------+-------+---+ + +---+ | | | + +---+ | ondansetron (ZOFRAN) injection | | | 4 mg 4 mg, Intravenous, EVERY 6 | | | HOURS PRN, Nausea, Vomiting, | | | Starting Fri07/08/18 at 0337, | | | First line agent, | | + +---+ | | | + +---+ + +-------+ +-------+---+---+ | pantoprazole (PROTONIX) DR | Given | 07/11/19 | 40 mg | | | | tablet 40 mg 40 mg, Oral, DAILY | | 19 7:48 | | | | | BEFORE BREAKFAST, First dose on | | AM PDT | | | | | 07/08/18 at 1200, Indication: | | | | | | | GERD | | | | | | + +-------+ +-------+---+---+ +-------+ +-------+---+---+ | Given | 07/10/19 | 40 mg | | | | | 19 8:02 | | | | | | AM PDT | | | | +-------+ +-------+---+---+ | Given | 07/09/19 | 40 mg | | | | | 19 2:49 | | | | | | PM PDT | | | | +-------+ +-------+---+---+ +---+---+ | | | +---+---+ + +---------+ +---------+-------+---+ | piperacillin-tazobactam (ZOSYN) | New Bag | 07/09/19 | 3.375 g | 200 | | | 3.375 g in sodium chloride 0.9% | | 19 2:48 | | mL/hr | | | 100 mL IVPB 3.375 g, | | AM PDT | | | | | Intravenous, Administer over 0.5 | | | | | | | Hours, ONCE, 07/08/18 at 0245, | | | | | | | For 1 dose, Activate system and | | | | | | | mix before use., Indications: | | | | | | | SEPSIS OF UNKNOWN ETIOLOGY | | | | | | + +---------+ +---------+-------+---+ +---+---+ | | | +---+---+ + +-------+ +--------+---+---+ | potassium chloride (Klor-Con | Given | 07/11/19 | 40 mEq | | | | M20) ER tablet 40 mEq 40 mEq, | | 19 10:43 | | | | | Oral, ONCE, Fri07/10/18 at 0900, | | AM PDT | | | | | For 1 dose | | | | | | + +-------+ +--------+---+---+ +---+---+ | | | +---+---+ + +-------+ +-------+---+---+ | pregabalin (LYRICA) capsule 75 | Given | 07/10/19 | 75 mg | | | | mg 75 mg, Oral, DAILY EVENING, | | 19 5:06 | | | | | First dose on Fri07/08/18 at 1800 | | PM PDT | | | | + +-------+ +-------+---+---+ +-------+ +-------+---+---+ | Given | 07/09/19 | 75 mg | | | | | 19 5:42 | | | | | | PM PDT | | | | +-------+ +-------+---+---+ +---+---+ | | | +---+---+ + +---------+ +--------+-------+---+ | sodium chloride 0.9% (NS) bolus | New Bag | 07/09/19 | 1,000 | 2000 | | | 1,000 mL 1,000 mL, Intravenous, | | 19 1:18 | mLs | mL/hr | | | Administer over 30 Minutes, | | AM PDT | | | | | ONCE, 07/08/18 at 0130, For 1 | | | | | | | dose | | | | | | + +---------+ +--------+-------+---+ +---+---+ | | | +---+---+ + +---------+ +--------+-------+--------+ | sodium chloride 0.9% (NS) bolus | New Bag | 07/09/19 | 1,000 | 1000 | Right | | 1,000 mL 1,000 mL, Intravenous, | | 19 9:58 | mLs | mL/hr | Arm | | Administer over 1 Hours, ONCE, | | AM PDT | | | | | 07/08/18 at 0900, For 1 dose | | | | | | + +---------+ +--------+-------+--------+ +---+---+ | | | +---+---+ + +---------+ +---------+-------+---+ | sodium chloride 0.9% (NS) bolus | New Bag | 07/08/19 | 500 mLs | 1000 | | | 500 mL 500 mL, Intravenous, | | 19 10:17 | | mL/hr | | | Administer over 30 Minutes, ONCE, | | PM PDT | | | | | 07/07/18 at 2230, For 1 dose | | | | | | + +---------+ +---------+-------+---+ +---+---+ | | | +---+---+ + +---------+ +--------+-------+---+ | sodium chloride 0.9% (NS) | New Bag | 07/10/19 | 1,000 | 100 | | | infusion at 100 mL/hr, | | 19 10:50 | mLs | mL/hr | | | Intravenous, CONTINUOUS, Starting | | PM PDT | | | | | 07/08/18 at 1200 | | | | | | + +---------+ +--------+-------+---+ +---------+ +--------+-------+ + | New Bag | 07/10/19 | 1,000 | 100 | Left Arm | | | 19 1:14 | mLs | mL/hr | | | | PM PDT | | | | +---------+ +--------+-------+ + | New Bag | 07/09/19 | 1,000 | 100 | | | | 19 11:50 | mLs | mL/hr | | | | PM PDT | | | | +---------+ +--------+-------+ + +---+---+ | | | +---+---+ + +-------+ +--------+---+---+ | tamsulosin (FLOMAX) capsule 0.4 | Given | 07/10/19 | 0.4 mg | | | | mg 0.4 mg, Oral, NIGHTLY, First | | 19 8:57 | | | | | dose on Fri07/08/18 at 2100, August | | PM PDT | | | [...] +-------+ +--------+---+---+ +-------+ +--------+---+---+ | Given | 07/09/19 | 0.4 mg | | | | | 19 9:15 | | | | | | PM PDT | | | | +-------+ +--------+---+---+ +---+---+ | | | +---+---+ documented in this encounter
--- OUTSIDE RECORDS SUMMARY | ~2019-02-17 | XMS | Encounter Summary ---
Demographics + + + | Address | [address] | | | [place] [address] | + + + | Home Phone [...] Providers + +------+ + | [employer] Teacher Name | Role | Phone | [...] | | [address] [place], | [address] | | | | | [place] [address] | [phone] | | | | | [phone] | | | +--------+ + + + [...] [place] | | | | | | [address] | | | | | | [phone] | | | | | | | | +--------+---------+ + + + | 02/26/ | Office | Urology | Lillie Fowler | | | 2018 | Visit | | [address] | | | | | | [address] | | | | | | [place] | | | | | | [address] | | | | | | [phone] | | | | | | | | +--------+---------+ + + + | 03/16/ | Office | Neurology | Theresa, | | | 2018 | Visit | | [address] | | | | | | [address] [place], | | | | | | [place] [address] | | | | | | [phone] | | | | | | | | +--------+---------+ + + + | 04/12/ | Office | Primary Care | Massimo Ramos | | | 2019 | Visit | | MD [address] | | | | | | [place] | | | | | | [address] | | | | | | | | +--------+---------+ + + + | 10/03/ | Office | Neurology | Fabián Carias MD | | | 2019 | Visit | | [address] | | | | | | [place] | | | | | | [address] | | | | | | | [...] | | | care | | | [employer] | | | | | | [...] | | | care | | | [employer] | | | | | | [...] | | | care | | | [employer] | | | | | | [...] | | | care | | | [employer]igating [employer] | | | | | | [...]
--- OUTSIDE RECORDS SUMMARY | ~2019-02-17 | XMS | Encounter Summary ---
Demographics + + + | Address | [address] | | | [place] [address] | + + + | Home Phone [...] Team Providers + +------+ + | Care Ultrasound Specialist Name | Role | Phone | + +------+ + | Horacio Silvestre DO | PCP | | + +------+ + Reason for Visit +--------+ + | Reason | Comments | +--------+ + | Other | Question re referral | +--------+ + Encounter Details +--------+ + + + + | Date | Type | Department | Care Team | Description | +--------+ + + + + | 05/07/ | Telephone | [facility] | Horacio Silvestre, | Other (Question re | | 2018 | [facility] | referral ) | | | | [facility] [address] | [facility], [place] | | | | | [address] [place], | [address] | | | | | [place] [address] | [phone] | | | | | [phone] | | | +--------+ + + + [...] [place] | | | | | | [address] | | | | | | [phone] | | | | | | | | +--------+---------+ + + + | 02/26/ | Office | Urology | Lillie Fowler | | | 2018 | Visit | | [address] | | | | | | [address] | | | | | | [place], [place] | | | | | | [address] | | | | | | [phone] | | | | | | | | +--------+---------+ + + + | 03/16/ | Office | Neurology | Theresa, | | | 2018 | Visit | | [address] | | | | | | [address] [place], | | | | | | [place] [address] | | | | | | [phone] | | | | | | | | +--------+---------+ + + + | 04/12/ | Office | Primary Care | Massimo Ramos | | | 2019 | Visit | | MD Fer [address] | | | | | [address] [place], [place] | | | | | | [address] | | | | | | | | +--------+---------+ + + + | 10/03/ | Office | Neurology | Fabián Carias MD | | | 2019 | Visit | | [address] | | | | | | [place], [place] | | | | | | [address] | | | | | | | [...] | | | care | | | Drill Setup Operator-C | | | | | | [...] | | | care | | | Drill Setup Operator-C | | | | | | [...] | | | care | | | Drill Setup Operator-C | | | | | | [...] | | | care | | | Drill Setup Operator-C | | | | | | | linical | + +--------+ +---+-----+ + + + | Note: Pt will | | check CBG's daily x1 | | Pt will take Lantis as | | prescribed | + + documented as of this encounter Visit Diagnoses Not on filedocumented in this encounter"
--- OUTSIDE RECORDS SUMMARY | ~2019-02-17 | XMS | Encounter Summary ---
Demographics + + + | Address | [address] | | | [place] [address] | + + + | Home Phone [...] Team Providers + +------+ + | Care Master Sheet Clerk Name | Role | Phone | + +------+ + | Horacio Silvestre DO | PCP | | + +------+ + Reason for Visit + + + | Reason | Comments | + + + | High Blood Sugar | | | (Symptomatic) | | + + + Encounter Details +--------+ + + + + | Date | Type | Department | Care Team | Description | +--------+ + + + + | 12/08/ | Hospital | [facility] | Luciano Diana | Hyperglycemia | | 2019 - | Encounter | [facility] | MD Johnathan [address] | (Primary Dx); Type 2 | | | | [address] [place] | [place] | diabetes mellitus | | 12/12/ | | [place], [place] | [place] [address] | with complication, | | 2018 | | [address] | [phone] | with long-term | | | | [phone] | | current use of | | | | | Esteban Calvillo, | insulin ([facility]) | | | | | [address] | | | | | | [place] [address] | | | | | | [phone] | | | | | | | | | | | | Aria Ramos MD | | | | | | [address] [place] | | | | | | [place] [address] | | | | | | [phone] | | | | | | | [...] + + + | Blood Pressure | 116/81 | 12/12/2018 4:14 AM | | | | | PDT | | + + + + + | Pulse | 60 | 12/12/2018 4:14 AM | | | | | PDT | | + + + + + | Temperature | 36.4 C (97.52 F) | 12/12/2018 4:14 AM | | | | | PDT | | + + + + + | Respiratory Rate | 16 | 12/12/2018 4:14 AM | | | | | PDT | | + + + + + | Oxygen Saturation | 94% | 12/12/2018 4:14 AM | | | | | PDT | | + + + + + | Inhaled Oxygen | - | - | | | Concentration | | | | + + + + + | Weight | 84.5 kg (186 lb 4.6 | 12/11/2018 5:46 AM | | | | oz) | PDT | | + + + + + | Height | 167.6 cm (5' 6") | 12/08/2018 11:08 PM | | | | | PDT | | + + + + + | Body Mass Index | 30.07 | 12/08/2018 11:08 PM | | | | | PDT [...] stairs? (5 years old or older) | brett itz | | + + + + [...] encounter Discharge Summaries Esteban Calvillo MD - 12/12/2018 9:28 AM PDT MEDICAL HOSPITALIST DISCHARGE SUMMARY Pt. Name/Age/: Geraldo Mcfadden 78 y.o. 1940 Date of Admission: 12/08/2018 Date of Discharge: 12/12/2018 PCP: Horacio Silvestre Admitting Diagnosis: Hyperglycemia. 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 * Additional discharge history/co-morbidities: Active Ambulatory Problems Diagnosis Date Noted Multilevel degenerative disc disease 05/22/2013 Bilateral carpal tunnel syndrome 05/31/2013 History of arterial ischemic stroke 03/07/2017 Gastroesophageal reflux disease without esophagitis 03/07/2017 Acquired hypothyroidism 03/07/2017 Pure hypercholesterolemia 03/07/2017 Hypogonadotropic hypogonadism 03/07/2017 Type 2 diabetes mellitus with complication, with long-term current use of insulin 04/2016 Class 1 obesity with alveolar hypoventilation, serious comorbidity, and body mass index (BMI) of 33.0 to 33.9 in adult 03/07/2017 Benign prostatic hyperplasia with incomplete bladder emptying 03/07/2017 Acquired diverticulosis of colon 03/07/2017 Chronic nonseasonal allergic rhinitis due to pollen 03/07/2017 mirror specialist current use of aspirin 03/07/2017 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, left Current use of beta marly 06/30/2017 Panlobular emphysema 08/08/2017 Atherosclerosis of [place] coronary artery of [place] heart without angina pectoris 08/08 On potassium wasting diuretic therapy 08/08/2017 Primary osteoarthritis involving multiple joints 09/30/2017 Vitamin D deficiency disease 09/30/2017 History of bacterial pneumonia 03/16/2018 Insomnia secondary to chronic pain 04/08/2018 Hx of transient ischemic attack (TIA) 04/10/2018 Coordination of complex care 06/01/2018 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 behavioral 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 09/01/2018 Mediastinal lymphadenopathy 10/03/2018 TIA (transient ischemic attack) 11/02/2018 Weakness of both lower extremities 11/02/2018 Resolved Ambulatory Problems Diagnosis Date Noted Essential hypertension 03/07/2017 mirror specialist current use of opiate analgesic 06/27/2017 Community acquired pneumonia of left lower lobe of lung 08/15/2017 Neck pain, chronic 12/15/2017 Chronic bilateral low back pain without sciatica 12/15/2017 Generalized weakness 01/09/2018 Dehydration 01/09/2018 Chronic bilateral low back pain without sciatica 02/19/2018 Hypoxia 03/16/2018 Neutrophilic leukocytosis 03/17/2018 prison current use of non-steroidal anti-inflammatories (NSAID) 04/08/2018 Syncope and collapse 05/19/2018 ARF (acute renal failure) 05/26/2018 Pneumonia 05/26/2018 Hypomagnesemia 05/26/2018 Diabetic polyneuropathy associated with type 2 diabetes mellitus 06/27/2018 VIKAS (acute kidney injury) 07/08/2018 Orthostatic hypotension 07/08/2018 Dehydration 07/08/2018 Leukocytosis 07/08/2018 Septic shock 07/24/2018 Acute respiratory failure with hypoxia 07/24/2018 HCAP (healthcare-associated pneumonia) 07/24/2018 Uncontrolled type 2 diabetes mellitus with hyperosmolar nonketotic hyperglycemia 08/23 Chronic pain syndrome 09/01/2018 Acute cystitis without hematuria 10/03/2018 Metabolic encephalopathy 10/03/2018 Pneumonia due to infectious organism 10/12/2018 Uncontrolled type 1 diabetes mellitus with hyperglycemia 10/13/2018 COPD, mild 10/13/2018 Past Medical History: Diagnosis Date Carpal tunnel syndrome, bilateral 05/31/2013 DDD (degenerative disc disease), cervical 05/22/2013 Diabetes mellitus GERD (gastroesophageal reflux disease) Gout Hiatal hernia Hypertension Melanoma Melanoma 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, left Neck pain, chronic 05/22/2013 Neuropathy Paresthesias - both hands 05/22/2013 Thyroid disease Medications Reconciled upon Discharge are: Discharge Medications New Medications Details HYDROcodone-acetaminophen 5-325 mg per tablet Take 1-2 tablets by mouth every 4 hours as needed for Pain. aka: SAGE Changed Medications Details insulin glargine 100 units/mL injection (vial) Inject 60 Units under the skin nightly. What changed: how much to take aka: LANTUS Unchanged Medications Details albuterol 2.5 mg/3 mL [...] mg by mouth every morning. aka: CYMBALTA levothyroxine 100 mcg tablet Take 2.5 tablets by mouth every morning (before breakfast) for 90 days. aka: SYNTHROID losartan 50 mg tablet Take 1 tablet by mouth every morning. aka: COZAAR pregabalin 300 MG capsule Take 300 mg by mouth 2 times daily. aka: LYRICA tamsulosin 0.4 mg Caps Take 0.4 mg by mouth nightly. aka: FLOMAX testosterone 2 mg/[address] 1 patch onto the skin nightly. aka: ANDRODERM traMADol 50 mg tablet Take 1 tablet by mouth every 8 hours as needed. aka: ULTRAM traZODone 100 mg tablet Take 100 mg by mouth nightly. aka: JUDYYREL Discontinued Medications NOVOLOG 100 units/mL injection Generic drug: insulin aspart Clinical Resume: Please see hospital notes for complete details of this service. In brief, this is an 78-ye ar-old gentleman with a long history of uncontrolled diabetes mellitus. The patient was bro ught to the emergency department by his with symptoms of increased thirst, urinary inco ntinence, and weakness and tiredness. He was found to have a CBG in the 900 range. After extensive discussions with the patient and his , it became apparent that the jaspreet ent is noncompliant with his diabetic diet or insulin regimens. Multiple times in the past, home health has been arranged to assist the patient with management of his disease. He temi quently becomes frustrated with anyone who is trying to help him manage his disease, and has fired home health multiple times. Extensive workup was performed in the emergency department. There was no evidence of an in fectious process appreciated. The patient's blood sugars dropped precipitously with the administration of insulin and IV fluids. His pseudohyponatremia and acute on chronic renal failure all improved steadily ove r the course of his hospital stay with adequate CBG control and hydration. His urinary inco ntinence improved significantly. I had multiple discussions on a daily basis with both the patient and his reinforcing the need to adhere to a diabetic diet, uses insulin on a regular basis as prescribed, and pa rticipate and allow home health nurses to assist him with the management of his diabetes. T he patient was very gracious and assured me that he will participate with therapy. He is wi lling to have home health come out to his house in [place] again. This point, case management is working on getting home health to agree to come out again. Failed attempts, there is so me resistance on their part, though they are working to find a solution to the problem. In an effort to improve compliance, I'm attempting to simplify the patient's insulin regime n as much as possible. I have stopped his short acting insulin regimen. I have titrated up his Lantus insulin to 60 units subcu daily at bedtime. I expect this will require further adjustment but feel that a simple, once daily Lantus regimen is the only way we can expect t his patient to be compliant enough to have any kind of control over his diabetes. I recomme nded that he follow-up with his primary care provider at the [facility] in the next 1 week. Urine analysis was positive for yeast in the bladder. The patient has finished a 4 day cou rse of Diflucan for this. The patient is stable for discharge to home later today. Physical Examination: General: Alert Cardiovascular: Regular rate and rhythm. Respiratory: Clear to auscultation bilaterally. Abdomen: Benign. Extremities: No cyanosis, clubbing, or edema. Psychiatric: Normal mood and engaging affect. Significant tests and procedures during admission: Pet Ct Skull Base To Mid Thigh Result Date: 11/19/2018 EXAMINATION: PET CT SKULL BASE TO MID THIGH HISTORY: mediastinal lymphadenopathy COMPARISON STUDY: CT head neck 11/02/2018. CT chest 09/30/2018. CT chest 05/27/2018. CT abdomen pel vis 07/05/2018. CT chest 03/16/2018. CT chest abdomen pelvis 12/25/2016. CT abdomen pelvi s 10/14/2015. CT thorax 04/10/2015. TECHNIQUE: 13.4mCi F18 FDG is injected with fasting blo od sugar of 174mg/dl followed by PET/CT images from skull base through the mid thigh. FINDIN GS: HEAD/NECK: Normal bihemispheric radiopharmaceutical uptake noted intracranially. No cer vical adenopathy.. CHEST: The previously noted left lower lobe nodules are not redemonstrate d. At the lateral basal left lower lobe subsegmental consolidation noted on image 153. SUV is 3.57. The mediastinal adenopathy noted on 11/02/2018, and 09/30/2018 CT studies demonstra hermes interval decrease volume of lymph size. On 11/02/2018 study a 16 mm short axis diameter lymph node was present adjacent to the aortic arch. On the current study short axis diamet er is 7 mm. SUV is approximately 3.45. At the left hilum peak SUV is 4.5. Previously at the superior mediastinum adjacent to the right margin of esophagus 2 lymph nodes were noted wit h short axis diameters approximate 1.2, and 1.0 cm. On the current study dimensions are isabel roximately 0.8, and 0.8 cm. SUV is approximately 3.01. The SUV of the aortic arch is proxi johnny 2.39. No hilar adenopathy. Cardiomegaly. Atherosclerosis coronary arteries. ABD/PELVIS : At the prostate focal hypermetabolic region with SUV of 4.35 noted. At the sigmoid colon a nastomotic site a focal region of hypermetabolic FDG uptake noted. SUV 9. Low-level tissue metabolic activity demonstrated. The gallbladder is absent. Spleen volume is normal. Surg ical clips noted within abdominal mesentery. Bilateral hydroceles.. SKELETON: Low-level ske letal background activity demonstrated. No lytic or blastic bone lesions. IMPRESSION: 1. Decreased volume of previously noted mediastinal adenopathy. Several mildly FDG avid lymph nodes are noted which may relate to reactive nodes although malignant adenop athy is not strictly excluded. Recommend 3-[address] thorax to re-evaluate. 2. The previou sly noted left lower lobe soft tissue nodules are not redemonstrated. 3. Probable atelectasi s left lower lobe. 3-6 month follow-up CT thorax recommended to re-evaluate. 4. Hypermetabo lic focus at the sigmoid colon in region of prior surgery. Finding could relate to inflamma tory process although neoplasm is not excluded. Colonoscopy recommended. 5. Small hypermeta bolic focus within the prostate. This finding could relate to benign or malignant process. Recommend PSA, and urology consult. 6. Atherosclerosis coronary arteries. 7. Cardiomegaly. Dictated by: Troy Lawrence Pending inpatient studies at time of discharge: None Disposition: Home Follow-Up Plans: No follow-up provider specified. Electronically signed by: Kamila Valdivia 12/12/2018 9:38 CC [facility] Time spent discharging this patient: 35 minutes spent caring for this patient. This document serves as a record of the serviced and decision personally performed by Min Calvillo MD. It was created on their behalf by Kamila Pinedo, a trained medical scr liliana. The creation of this document is based on the provider's statements to the medical scri be. documented in this encounter Discharge Instructions Instructions Landy Blas RN - 12/12/2018 [id number] Checking Your Blood Sugar Date Last Reviewed: 08/06/201519995131-5572 [employer]. [address] [place] [address], [place] [address]. All righ ts reserved. This information is [...] resources below can help you learn more: Citizen [place] Diabetes [email or web address].diabetes.org Lighthouse [email or web address].lighthouse.org National Eye [phone] www.nei.nih.gov Hormone Health [id number] www.hormone.org Date Last Reviewed: 08/06/201519997907-2405 [employer]. [address] [place] [address]. All righ ts reserved. This information is not intended as a substitute for professional medical care. Always follow your healthcare professional's instructions. Exercise to Manage Your Blood Sugar Being [...] to you, start slow and steady. Begin [id number] of activity each day. Then work up [...] provider to learn more. Date Last Reviewed: 09/06/201519994319-2540 [employer]. [address] [place] [address], [place] [address]. All righ ts reserved. This information is not intended as a substitute for professional medical care. Always follow your healthcare professional's instructions. AttachmentsThe following attachments cannot be sent through Care Everywhere.Diabetes, Healt hy Meals for (Dutch)Healthy Cooking Tips for People with Diabetes (Dutch)Diabetes, Carbo hydrates, Fats, and Protein, Understanding (Dutch)Diabetes, Eating Out When You Have (Engl shakeel)Insulin, Using and Injecting (Dutch)documented in this encounter Medications at Time of [...] encounter Progress Notes Cynthia Mendes, PharmD - 12/12/2018 10:22 AM PDTFormatting of this note might be differen t from the original. PHARMACY SERVICES: DISCHARGE MEDICATION TEACHING Geraldo Mcfadden is a 78 y.o. male admitted on 12/08/18 for hyperglycemia and was dischar [facility] on 12/12/18. Discharge Medications New Medications Details HYDROcodone-acetaminophen 5-325 mg per tablet Take 1-2 tablets by mouth every 4 hours as needed for Pain. aka: NORCO Changed Medications Details insulin glargine 100 units/mL injection (vial) Inject 60 Units under the skin nightly. What changed: how much to take aka: LANTUS Unchanged Medications Details albuterol 2.5 mg/3 mL [...] mg by mouth every morning. aka: CYMBALTA levothyroxine 100 mcg tablet Take 2.5 tablets by mouth every morning (before breakfast) for 90 days. aka: SYNTHROID losartan 50 mg tablet Take 1 tablet by mouth every morning. aka: COZAAR pregabalin 300 MG capsule Take 300 mg by mouth 2 times daily. aka: LYRICA tamsulosin 0.4 mg Caps Take 0.4 mg by mouth nightly. aka: FLOMAX testosterone 2 mg/[address] 1 patch onto the skin nightly. aka: ANDRODERM traMADol 50 mg tablet Take 1 tablet by mouth every 8 hours as needed. aka: ULTRAM traZODone 100 mg tablet Take 100 mg by mouth nightly. aka: DESYREL Discontinued Medications NOVOLOG 100 units/mL injection Generic drug: insulin aspart Counseled patient on the new prescription for hydrocodone/APAP. Patient said that he has h ad this medication before. Explained to still watch for drowsiness and to take with some fo od. Explained that the dose of his lantus was increasing to 60 units and to stop using his short acting insulin. Patient was able to repeat back and verbalized understanding. Patien t had no further questions. Electronically signed by: Cynthia Mendes, PharmD 12/12/2018 10:22 Esteban Mccormick MD - 12/11/2018 9:46 AM PDT . MEDICAL HOSPITALIST TEAM PROGRESS NOTE Name:[facility] Day # 1 Reason for admission and continued stay: Geraldo Mcfadden is a 78 y.o. male hospitalized for Hyperglycemia Assessment and Plan: Principal Problem: Hyperglycemia Active Problems: Type 2 diabetes mellitus with complication, with long-term current use of insulin 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 behavioral disturbance #1 uncontrolled type II diabetes mellitus. Hyperglycemia improved but not resolved. Increase Lantus regimen again today. Follow. I again had a nayana discussion with the patient and his about the importance of medica tion compliance, diet compliance, and allowing home health to assist them. Patient and his exhibited good understanding and agree with the plan. #2 urinary frequency, yeast and bladder. Improved. Day 3 of 5 of Diflucan. #3 anticipated days until discharge and disposition: Likely home sometime over the weekend. Subjective/ROS: No decreased appetite. No chest pain or shortness of breath. No diarrhea. No urinary retention. Objective: Most recent vital signs: BP 138/85 | Pulse 60 | Temp 36.5 C (97.7 F) | Resp 18 | Ht 1.676 m (5' 6") | Wt 84 .5 kg (186 lb 4.6 oz) | SpO2 96% | BMI 30.07 kg/m Vital sign ranges for last 24hrs: Input and output for last 24hrs: Temp: [36.4 C (97.5 F)-36.8 C (98.24 F)] 36.5 C (97.7 F) Pulse: [56-75] 60 Resp: [16-18] 18 BP: (118-155)/(81-97) 138/85 SpO2 Av.2 % Min: 95 % Max: 96 % 12/09 1901 - 12/11 0700 In: 6804 [P.O.:1740; I.V.:5064] Out: 6000 [Urine:6000] Physical Examination: General: Alert Cardiovascular: Regular rate and rhythm with no murmur Respiratory: Clear to auscultation bilaterally Abdomen: Bowel sounds auscultated. Soft, nondistended and nontender. Extremities: Trace edema at the ankles Skin: No rash Neurological: Spontaneously moving all extremities Psychiatric: Normal mood and engaging affect Physical Exam Last 8 glucose values: Recent Labs Lab 12/11/18 0733 09/06/51912/10/188 12/10/18 1641 12/10/18 1123 12/10/18 0722 12/10/18 0535 12/09/18 21212/09/18 1701 12/09/18 1230 12/09/1832 12/08/18220812/08/18 1230 POCGLU 203* -- 372* 382* 370* 264* -- 254* 366* 331* < > -- -- -- GLU -- 230* -- -- -- -- 303* -- -- -- -- 322* 539* 919* < > = values in this interval not displayed. Labs/Studies: Recent Labs Lab 12/11/1851912/10/1853412/09/1853112/08/18 1230 WBC 13.5* 11.7* 11.0* 9.6 HGB 14.4 13.8 13.7 14.6 HCT 41.9 40.3 38.9* 41.4 PLT 170 159 181 196 Recent Labs Lab 12/11/1851912/10/1853412/09/1853112/08/18220812/08/18 1230 NA 136 136 134 124* 121* K 4.6 4.4 4.4 4.7 4.8 CL 102 102 101 89* 86* CO2 29 26 24 21* 20* BUN 30* 28* 34* 41* 37* CREA 0.94 0.84 1.00 1.44* 1.47* GLU 230* 303* 322* 539* 919* MG -- 1.9 2.2 2.3 -- CALCIUM 9.3 8.9 9.0 9.8 9.0 PHOS -- 3.9 -- 4.1 -- BILITOT -- -- -- -- 0.6 AST -- -- -- -- 17 ALT -- -- -- -- 32 ALKPHOS -- -- -- -- 100 ALBUMIN -- -- -- -- 3.9 Medications reviewed: Medications were reviewed, and adjusted by me. Electronically signed by: Kamila Valdivia 12/11/2018 9:57 CC [facility] Portions of this chart may have been created with voice recognition software. Occasional wo rd or "sound-alike" substitutions may have occurred due to the inherent limitation of voice recognition software. Read the chart carefully and recognize, using context, where these sub stitutions have occurred. This document serves as a record of the serviced and decision personally performed by Min Calvillo MD. It was created on their behalf by Kamila Pinedo, a trained medical scr liliana. The creation of this document is based on the provider's statements to the medical scri be. unsmindy, Esteban Long MD - 12/10/2018 8:28 AM PDT MEDICAL HOSPITALIST TEAM PROGRESS NOTE Name:Geraldo [facility]fadd[facility] Day # 0 Reason for admission and continued stay: Geraldo Mcfadden is a 78 y.o. 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 Significantly improve d though there is still room for further improvement. Plan to increase Lantus dose today. Continue patient education with nursing and dietary. #2 urinary frequency, yeast and bladder. Urinary frequency/incontinence has resolved. Continue Diflucan (day 2 of 5). #3 history of hypothyroidism. Recently uncontrolled. Levothyroxine dose increased to 250 g daily. TSH markedly suppressed at admission. Repeat TSH with reflex to free T4. Decre ase levothyroxine dose to 150 g daily. Plan repeat TSH in 4 weeks. #4 anticipated days until discharge and disposition: Likely home tomorrow. Subjective/ROS: Feeling better. No fevers or chills. No chest pain or palpitations. Denies cough or shortness of breath. Eating well. No nausea, vomiting or diarrhea. No bleeding. Strength is improving slowly but steadily. Objective: Most recent vital signs: BP (!) 132/94 | Pulse 60 | Temp 36.4 C (97.5 F) (Oral) | Resp 16 | Ht 1.676 m (5' 6 ") | Wt 86.4 kg (190 lb 7.6 oz) | SpO2 95% | BMI 30.74 kg/m Vital sign ranges for last 24hrs: Input and output for last 24hrs: Temp: [36.3 C (97.34 F)-36.7 C (98.06 F)] 36.4 C (97.5 F) Pulse: [59-67] 60 Resp: [16] 16 BP: (115-163)/(82-100) 132/94 SpO2 Av.9 % Min: 91 % Max: 97 % 12/08 1900 - 12/10 0700 In: 1697 [P.O.:1140; I.V.:557] Out: 5725 [Urine:5725] Physical Examination: General: Alert and oriented 3. No apparent distress. Cardiovascular: Regular rate and rhythm. Respiratory: Clear to auscultation bilaterally. Abdomen: Benign. Extremities: Trace edema at ankles. Psychiatric: Normal mood, engaging affect. Physical Exam Last 8 glucose values: Recent Labs Lab 12/10/18 0722 12/10/18 0535 12/09/18 2121 12/09/18 1701 12/09/18 1230 12/09/18 0755 12/09/18 0532 12/08/18220812/08/18 1230 POCGLU 264* -- 254* 366* 331* 291* -- -- -- GLU -- 303* -- -- -- -- 322* 539* 919* Labs/Studies: Recent Labs Lab 12/10/18 0535 12/09/18 0532 12/08/18 1230 WBC 11.7* 11.0* 9.6 HGB 13.8 13.7 14.6 HCT 40.3 38.9* 41.4 PLT 159 181 196 Recent Labs Lab 12/10/18 0535 12/09/18 0532 12/08/18220812/08/18 1230 NA 136 134 124* 121* K 4.4 4.4 4.7 4.8 CL 102 101 89* 86* CO2 26 24 21* 20* BUN 28* 34* 41* 37* CREA 0.84 1.00 1.44* 1.47* GLU 303* 322* 539* 919* MG 1.9 2.2 2.3 -- CALCIUM 8.9 9.0 9.8 9.0 PHOS 3.9 -- 4.1 -- BILITOT -- -- -- 0.6 AST -- -- -- 17 ALT -- -- -- 32 ALKPHOS -- -- -- 100 ALBUMIN -- -- -- 3.9 Medications reviewed: Medications have been reviewed, and adjusted by me. Electronically signed by: Esteban Calvillo MD 12/10/2018 8:29 CC [facility] Portions of this chart may have been created with voice recognition software. Occasional wo rd or "sound-alike" substitutions may have occurred due to the inherent limitation of voice recognition software. Read the chart carefully and recognize, using context, where these sub stitutions have occurred. steban Calvillo MD - 12/09/2018 10:31 AM PDT MEDICAL HOSPITALIST TEAM PROGRESS NOTE Name:Geraldo Mcfadden [facility] Day # 0 Reason for admission and continued stay: Geraldo Mcfadden is a 78 y.o. male hospitalized for Hyperglycemia Assessment and Plan: Principal Problem: Hyperglycemia Active Problems: Type 2 diabetes mellitus with complication, with long-term current use of insulin 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 behavioral disturbance #1 uncontrolled type II diabetes mellitus, with severe hyperglycemia. Hyperglycemia has si gnificantly improved on the patient's usual insulin regimen while he has been in hospital. Discussion with the patient and his made it quite evident that the patient is very nonc ompliant with CBG checks and diet. I had another nayana discussion with the patient and his about the futility of continuing the current living and eating situation if he expects to have any significant improvement in his quality of life or the management of his type II diabetes mellitus. Again the patient and his exhibited good understanding and agreed t o meet with nutrition. The patient tells me he will "try my best to do better". I again re commended that they consider changing her living situation. They are not open to this curre ntly. Continue current dose Lantus with sliding scale insulin. Licensed Home Inspector consult for another round of diabetic diet teaching. Case management consulted again to provide any at-home ass istance possible. #2 urinary frequency, yeast in the bladder. I expect patient's urinary frequency/incontine nce is secondary to his severe hyperglycemia. Could be some degree of loss of control due t o underlying yeast infection however. He does report one discrete episode of nayana hematuri a several days ago. Urinalysis obtained last night does not show any blood in the urine. I expect this was a 1 off thing. Considering the patient's symptoms however, I think it would be worthwhile to treat with 5 days of Diflucan. Check postvoid residuals and straight cath as needed. #3 anticipated days until discharge and disposition: Likely stable for [facility] tomorrow. Subjective/ROS: Urinary incontinence for 2 days Episode of blood in urine yesterday Generalized weakness No numbness or tingling No blurred vision No chest pain or shortness of breath No pain or burning No abdominal pain No new rashes or skin lesions Objective: Most recent vital signs: BP (!) 160/96 | Pulse 55 | Temp 36.4 C (97.52 F) (Oral) | Resp 18 | Ht 1.676 m (5' 6") | Wt 85.8 kg (189 lb 2.5 oz) | SpO2 96% | BMI 30.53 kg/m Vital sign ranges for last 24hrs: Input and output for last 24hrs: Temp: [36 C (96.8 F)-36.5 C (97.7 F)] 36.4 C (97.52 F) Pulse: [32-110] 55 Resp: [16-18] 18 BP: (99-160)/(73-96) 160/96 SpO2 Av.8 % Min: 84 % Max: 99 % 12/07 1901 - 12/09 0700 In: 857 [P.O.:300; I.V.:557] Out: 2300 [Urine:2300] Physical Examination: General: Alert and oriented x3. Respiratory effort normal. Lymph: Negative Neck: No thyromegaly Cardiovascular: Regular rate and rhythm with no murmur Respiratory: Clear to auscultation bilaterally Abdomen: Soft, non distended, mild suprapubic fullness that is minimally tender to deep pa lpation, no masses appreciated Extremities: No cyanosis, clubbing, or edema Neurological: Spontaneously moving all 4 extremities Psychiatric: Normal mood and engaging affect Physical Exam Last 8 glucose values: Recent Labs Lab 12/09/18 0755 12/09/18 0532 12/08/18220812/08/18 1230 POCGLU 291* -- -- -- GLU -- 322* 539* 919* Labs/Studies: Recent Labs Lab 12/09/18 0532 12/08/18 1230 WBC 11.0* 9.6 HGB 13.7 14.6 HCT 38.9* 41.4 PLT 181 196 Recent Labs Lab 12/09/18 0532 12/08/18220812/08/18 1230 NA 134 124* 121* K 4.4 4.7 4.8 CL 101 89* 86* CO2 24 21* 20* BUN 34* 41* 37* CREA 1.00 1.44* 1.47* GLU 322* 539* 919* MG 2.2 2.3 -- CALCIUM 9.0 9.8 9.0 PHOS -- 4.1 -- BILITOT -- -- 0.6 AST -- -- 17 ALT -- -- 32 ALKPHOS -- -- 100 ALBUMIN -- -- 3.9 Pertinent micro results: Urinalysis positive for yeast. Electronically signed by: Kamila Valdivia 12/09/2018 10:45 CC [facility] Portions of this chart may have been created with voice recognition software. Occasional wo rd or "sound-alike" substitutions may have occurred due to the inherent limitation of voice recognition software. Read the chart carefully and recognize, using context, where these sub stitutions have occurred. This document serves as a record of the serviced and decision personally performed by No at t. providers found. It was created on their behalf by Kamila Pinedo, a trained medical s diana. The creation of this document is based on the provider's statements to the medical sc ronald. Saroj Schmidt, PharmD - 12/09/2018 9:17 AM PDTMedication History Completed Medication history was completed using: -interview with patient who is a good historian Major discrepancies noted: Patient no longer takes pantoprazole. Removed from home med list . Please see [facility] med list for updated medication list. Electronically Signed by: Clarence Coulter PharmMercedes 12/09/2018 9:18 documented in this encounter Plan of Treatment [...] [place] | | | | | | [address] | | | | | | [phone] | | | | | | | | +--------+---------+ + + + | 02/26/ | Office | Urology | Lillie Fowler | | | 2018 | Visit | | LILLIE Lopez [address] | | | | | [address] | | | | | | [place] | | | | | | [address] | | | | | | [phone] | | | | | | | | +--------+---------+ + + + | 03/16/ | Office | Neurology | Theresa, | | | 2018 | Visit | | SHONDA Mckinney [address] | [address] [place], | | | | | | [place] [address] | | | | | | [phone] | | | | | | | | +--------+---------+ + + + | 04/12/ | Office | Primary Care | Massimo Ramos | | | 2019 | Visit | | MD Fer [address] | | | | | | [address] [place] | | | | | | [address] | | | | | | | | +--------+---------+ + + + | 10/03/ | Office | Neurology | Fabián Carias MD | | | 2019 | Visit | | [address] | | | | | | [place] | | | | | | [address] | | | | | | | | +--------+---------+ + + + + +------+--------+ + + | Name | Type | Priori | Associated Diagnoses | Date/Time | | | | ty | | | + +------+--------+ + + | ED INFORMATION | BRIT | Routin | | 12/08/2018 6:10 PM | | EXCHANGE | | e [...] | | | care | | | Retirement Officer-C | | | | | | [...] | | | care | | | Retirement Officer-C | | | | | | [...] | | | care | | | Retirement Officer-C | | | | | | [...] | | | care | | | Retirement Officer-C | | | | | | [...] + + | PHOSPHORUS | Routin | 12/10/2018 | | Results for this | | | e | 5:35 AM | | procedure are in the | | | | PDT | | results section. | + +--------+ + + + | MAGNESIUM | Routin | 12/10/2018 [...] | + +--------+ + + + | KETONES,SERUM | Routin | 12/09/2018 [...] | + +--------+ + + + | KETONES,SERUM | Routin | 12/09/2018 [...] + + + | PROTIME INR | Routin | 12/09/2018 | | Results for this | | | e | 5:32 AM | | procedure are in the | | | | PDT | | results section. | + +--------+ + + + | CBC NO DIFFERENTIAL | Routin | 12/09/2018 | | Results for this | | | e | 5:32 AM | | procedure are in the | | | | PDT | | results section. | + +--------+ + + + | MAGNESIUM | Routin | 12/09/2018 [...] + + | BLOOD GAS, VENOUS | Routin [...] | + +--------+ + + + | KETONES,SERUM | Routin | 12/08/2018 | | Results for this | | | e | 10:09 PM | | procedure are in the | | | | PDT | | results section. | + +--------+ + + + | PHOSPHORUS | Routin | 12/08/2018 | | Results for this | | | e | 10:09 PM | | procedure are in the | | | | PDT | | results section. | + +--------+ + + + | MAGNESIUM | Routin | 12/08/2018 [...] this encounter Results ECG - EXTERNAL SCAN (12/15/2018 12:00 AM PDT) + + + | Narrative | Performed At | + + + | Ordered by an | | | unspecified provider. | | + + + POC Glucose (12/12/2018 7:32 AM PDT) + +---------+ + + + [...] + + | [facility] | [address] | [place] [address] | [phone] | | [facility] | | | | + + + + + Basic Metabolic Panel (12/12/2018 6:35 AM PDT) + + + + + [...] | mL/min/1.73m2 | [facility] | | | [...] + + | [facility] | [address] | [place] [address] | [phone] | | [facility] | | | | + + + + + POC Glucose (12/11/2018 8:17 PM PDT) + +---------+ + + + | Component | Value | Ref Range | Performed | Pathologist | | | | | At | Signature | + +---------+ + + + | Glucose, | 295 (H) | 70 - 110 mg/dL | [...] + + | [facility] | [address] | [place] [address] | [phone] | | [facility] | | | | + + + + + POC Glucose (12/11/2018 4:34 PM PDT) + +---------+ + + + | Component | Value | Ref Range | Performed | Pathologist | | | | | At | Signature | + +---------+ + + + | Glucose, | 331 (H) | 70 - 110 mg/dL | [...] + + | [facility] | [address] | [place] [address] | [phone] | | [facility] | | | | + + + + + POC Glucose (12/11/2018 11:35 AM PDT) + +---------+ + + + | Component | Value | Ref Range | Performed | Pathologist | | | | | At | Signature | + +---------+ + + + | Glucose, | 297 (H) | 70 - 110 mg/dL | [...] + + | [facility] | [address] | [place] [address] | [phone] | | [facility] | | | | + + + + + POC Glucose (12/11/2018 7:33 AM PDT) + +---------+ + + + | Component | Value | Ref Range | Performed | Pathologist | | | | | At | Signature | + +---------+ + + + | Glucose, | 203 (H) | 70 - 110 mg/dL | [...] + + | [facility] | [address] | [place] [address] | [phone] | | [facility] | | | | + + + + + Basic Metabolic Panel (12/11/2018 5:20 AM PDT) + + + + + [...] + + + + | K | 4.6 | 3.3 - 4.9 | [facility] | [...] + + + + | Glucose | 230 (H) | 70 - 110 mg/dL | [...] + + + + | Creatinine | 0.94 | 0.70 - 1.40 | [facility] | | | | | mg/dL | [facility] | | | | | [facility] | | + + + + + + | eGFR if not | >60 | >=60 | [facility] | | | | | mL/min/1.73m2 | [facility] | | | | | [facility] | | + + + + + + | Calcium | 9.3 | 8.3 - 10.0 | [facility] | | | | | mg/dL | [facility] | [facility] | | | [facility] | | + + + + + + | BUN/Creatin | 31.9 (H) | 7.0 - 24.0 | [facility] [...] + + | [facility] | [address] | [place] [address] | [phone] | | [facility] | | | | + + + + + CBC with Differential (12/11/2018 5:20 AM PDT) + + + + + + | Component | Value | Ref Range | Performed | Pathologist | | | | | At | Signature | + + + + + + | WBC | 13.5 (H) | 4.6 - 10.5 K/uL | [facility] | | | | | [facility] | | | [facility] | | + + + + + + | RBC | 4.89 | 4.36 - 5.83 | [facility] | | | | | M/uL | [facility] | | | | | [facility] | | + + + + + + | Hemoglobin | 14.4 | 13.1 - 17.4 | [facility] | | | | | g/dL | [facility] | [facility] | | | [facility] | | + + + + + + | Hematocrit | 41.9 | 39.0 - 51.9 % | [facility] | | | | | [facility] | | | | | [facility] | | + + + + + + | MCV | 85.7 | 82.0 - 96.0 fL | [facility] [...] + + + + | MCHC | 34.4 | 32.0 - 36.9 | [facility] | | | | | g/dL | [facility] | [facility] | | | [facility] | | + + + + + + | RDW-CV | 14.6 | 0.0 - 17.0 % | [facility] | [facility] | | | [facility] | | | | | [facility] | | + + + + + + | Platelet | 170 | 150 - 450 K/uL | [facility] | | | Count | | | [facility] | | | | | | [facility] | | + + + + + + | MPV | 11.9 | 9.4 - 12.4 fL | [facility] | | | | | [facility] | | | | | | [facility] | | + + + + + + | % | 68.7 | 42.0 - 76.0 % | [facility] | | | Neutrophils | | | [facility] | | | | | | [facility] | | + + + + + + | % | 12.6 (L) | 20.0 - 40.0 % | [facility] | | | Lymphocytes | | | [facility] | | | | | | [facility] | | + + + + + + | % Monocytes | 10.8 | 3.0 - 13.0 % | [facility] [...] + + + | % Immature | 6.9 (H) | 0.0 - 0.5 % | [facility] | | | Granulocyte | | | [facility] | [facility] | | | [facility] | | | | | | [facility] | | + + + + + + | Absolute | 9.30 (H) | 2.80 - 7.70 | [facility] | | | Neutrophils | | K/uL | [facility] | | | | | | [facility] | | + + + + + + | Absolute | 1.71 | 1.20 - 3.30 | [facility] | | | Lymphocytes | | K/uL | [facility] | | | | | | [facility] | | + + + + + + | Absolute | 1.46 (H) | 0.00 - 0.80 | [facility] | | | Monocytes | | K/uL | [facility] | | | | | | [facility] | | + + + + + + | Absolute | 0.03 | 0.00 - 0.70 | [facility] | | | Eosinophils | | K/uL | [facility] | | | | | | [facility] | | + + + + + + | Absolute | 0.11 | 0.00 - 0.20 | [facility] | | | Basophils | | K/uL | [facility] | | | | | | [facility] | | + + + + + + | Absolute | 0.93 (H) | 0.00 - 0.15 | [facility] [...] + + | [facility] | [address] | [place] [address] | [phone] | | [facility] | | | | + + + + + POC Glucose (12/10/2018 8:48 PM PDT) + +---------+ + + + | Component | Value | Ref Range | Performed | Pathologist | | | | | At | Signature | + +---------+ + + + | Glucose, | 372 (H) | 70 - 110 mg/dL | [...] + + | [facility] | [address] | [place] [address] | [phone] | | [facility] | | | | + + + + + POC Glucose (12/10/2018 4:41 PM PDT) + +---------+ + + + | Component | Value | Ref Range | Performed | Pathologist | | | | | At | Signature | + +---------+ + + + | Glucose, | 382 (H) | 70 - 110 mg/dL | [...] + + | [facility] | [address] | [place] [address] | [phone] | | [facility] | | | | + + + + + POC Glucose (12/10/2018 11:23 AM PDT) + +---------+ + + + | Component | Value | Ref Range | Performed | Pathologist | | | | | At | Signature | + +---------+ + + + | Glucose, | 370 (H) | 70 - 110 mg/dL | [...] + + | [facility] | [address] | [place] [address] | [phone] | | [facility] | | | | + + + + + POC Glucose (12/10/2018 7:22 AM PDT) + +---------+ + + + | Component | Value | Ref Range | Performed | Pathologist | | | | | At | Signature | + +---------+ + + + | Glucose, | 264 (H) | 70 - 110 mg/dL | [...] + + | [facility] | [address] | [place] [address] | [phone] | | [facility] | | | | + + + + + T4, Free (12/10/2018 5:37 AM PDT) + +---------+ + + + | Component | Value | Ref Range | Performed | Pathologist | | | | | At | Signature | + +---------+ + + + | FT4 | 1.6 (H) | 0.8 - 1.5 ng/dL | [facility] | [facility] | | | | | [facility] | | + +---------+ + + + + + | Specimen | + + | Blood | + + + + + | Narrative | Performed At | + + + | Results rechecked | [facility] | | | [facility] | + + + + + + + + | Performing | Address | City/State/Zipcode | Phone Number | | Organization | | | | + + + + + | [facility] | [address] | [place] [address] | [phone] | | [facility] | | | [...] + + | [facility] | [address] | [place] [address] | [phone] | | [facility] | | | [...] + + | [facility] | [address] | [place] [address] | [phone] | | [facility] | | | | + + + + + Magnesium (12/10/2018 5:35 AM PDT) + +-------+ + [...] + + | [facility] | [address] | [place] [address] | [phone] | | [facility] | | | | + + + + + Phosphorus (12/10/2018 5:35 AM PDT) + +-------+ + [...] + + | [facility] | [address] | [place] [address] | [phone] | | [facility] | | | [...] + + | [facility] | [address] | [place] [address] | [phone] | | [facility] | | | | + + + + + Basic Metabolic Panel (12/10/2018 5:35 AM PDT) + + + + [...] + + + + | Glucose | 303 (H) | 70 - 110 mg/dL | [...] + + + + | Creatinine | 0.84 | 0.70 - 1.40 | [facility] | | | | | mg/dL | [facility] | | | | | | [facility] | | + + + + + + | eGFR if not | >60 | >=60 | [facility] | | | | | mL/min/1.73m2 | [facility] | | | | | [facility] | | + + + + + + | Calcium | 8.9 | 8.3 - 10.0 | [facility] | | | | | mg/dL | [facility] | | | | | | [facility] | | + + + + + + | BUN/Creatin | 33.3 (H) | 7.0 - 24.0 | [facility] [...] + + | [facility] | [address] | [place] [address] | [phone] | | [facility] | | | | + + + + + CBC with Differential (12/10/2018 5:35 AM PDT) + + + + + + | Component | Value | Ref Range | Performed | Pathologist | | | | | At | Signature | + + + + + + | WBC | 11.7 (H) | 4.6 - 10.5 K/uL | [facility] | | | [facility] | | + + + + + + | RBC | 4.76 | 4.36 - 5.83 | [facility] | [...] + + + + | Hematocrit | 40.3 | 39.0 - 51.9 % | [facility] | | | | [facility] | | + + + + + + | MCV | 84.7 | 82.0 - 96.0 fL | [facility] | | | | [facility] | | + + + + + + | MCH | 29.0 | 27.7 - 32.3 pg | [facility] | | [facility] | | | | [facility] | | + + + + + + | MCHC | 34.2 | 32.0 - 36.9 | [facility] | | | | | g/dL | [facility] | | | | | | [facility] | | + + + + + + | RDW-CV | 14.6 | 0.0 - 17.0 % | [facility] | | [facility] | | | | | | [facility] | | + + + + + + | Platelet | 159 | 150 - 450 K/uL | [facility] | | | Count | | | [facility] | | | | | | [facility] | | + + + + + + | MPV | 11.2 | 9.4 - 12.4 fL | [facility] | [facility] | | [facility] | | | | [facility] | | + + + + + + | % | 71.9 | 42.0 - 76.0 % | [facility] | | | Neutrophils | | | [facility] | | | | | | [facility] | | + + + + + + | % | 12.3 (L) | 20.0 - 40.0 % | [facility] | | | Lymphocytes | | | [facility] | | | | | | [facility] | | + + + + + + | % Monocytes | 10.0 | 3.0 - 13.0 % | [facility] [...] + + + | % Immature | 4.9 (H) | 0.0 - 0.5 % | [facility] | | | Granulocyte | | | [facility] | | | [facility] | | | | | | [facility] | | + + + + + + | Absolute | 8.40 (H) | 2.80 - 7.70 | [facility] | | | Neutrophils | | K/uL | [facility] | | | | | | [facility] | | + + + + + + | Absolute | 1.44 | 1.20 - 3.30 | [facility] | | | Lymphocytes | | K/uL | [facility] | | | | | | [facility] | | + + + + + + | Absolute | 1.17 (H) | 0.00 - 0.80 | [facility] | | | Monocytes | | K/uL | [facility] | | | | | | [facility] | | + + + + + + | Absolute | 0.02 | 0.00 - 0.70 | [facility] | [...] + + + + | Absolute | 0.57 (H) | 0.00 - 0.15 | [facility] [...] + + | [facility] | [address] | [place] [address] | [phone] | | [facility] | | | | + + + + + POC Glucose (12/09/2018 9:21 PM PDT) + +---------+ + + + | Component | Value | Ref Range | Performed | Pathologist | | | | | At | Signature | + +---------+ + + + | Glucose, | 254 (H) | 70 - 110 mg/dL | [...] + + | [facility] | [address] | [place] [address] | [phone] | | [facility] | | | | + + + + + POC Glucose (12/09/2018 5:01 PM PDT) + +---------+ + + + | Component | Value | Ref Range | Performed | Pathologist | | | | | At | Signature | + +---------+ + + + | Glucose, | 366 (H) | 70 - 110 mg/dL | [...] + + | [facility] | [address] | [place] [address] | [phone] | | [facility] | | | | + + + + + Ketones, Serum (12/09/2018 1:49 PM PDT) + + + + + [...] + + | [facility] | [address] | [place] [address] | [phone] | | [facility] | | | | + + + + + POC Glucose (12/09/2018 12:30 PM PDT) + +---------+ + + + | Component | Value | Ref Range | Performed | Pathologist | | | | | At | Signature | + +---------+ + + + | Glucose, | 331 (H) | 70 - 110 mg/dL | [...] + + | [facility] | [address] | [place] [address] | [phone] | | [facility] | | | | + + + + + Ketones, Serum (12/09/2018 8:20 AM PDT) + +-------+ + + + | Component | Value | Ref Range | Performed | Pathologist | | | | | At | Signature | + +-------+ + + + | Acetone, | 0.2 | <0.6 mmol/L | [facility] | | | Serum Quant | | | [facility] | | | [...] + + | [facility] | [address] | [place] [address] | [phone] | | [facility] | | | | + + + + + POC Glucose (12/09/2018 7:55 AM PDT) + +---------+ + + + | Component | Value | Ref Range | Performed | Pathologist | | | | | At | Signature | + +---------+ + + + | Glucose, | 291 (H) | 70 - 110 mg/dL | [facility] | | | POC | | | [facility] | | | [...] + + | [facility] | [address] | [place] [address] | [phone] | | [facility] | | | | + + + + + Troponin I (12/09/2018 5:32 AM PDT) + +-------+ + [...] | cutoff point for the diagnosis of MD is 0.8 ng/mL for the Troponin I | | | method. | | + + + + + + + + | Performing | Address | City/State/Zipcode | Phone Number | | Organization | | | | + + + + + | [facility] | [address] | [place] [address] | [phone] | | [facility] | | | [...] + + | [facility] | [address] | [place] [address] | [phone] | | [facility] | | | | + + + + + Magnesium (12/09/2018 5:32 AM PDT) + +-------+ + [...] + + | [facility] | [address] | [place] [address] | [phone] | | [facility] | | | [...] + + | [facility] | [address] | [place] [address] | [phone] | | [facility] | | | | + + + + + Basic Metabolic Panel (12/09/2018 5:32 AM PDT) + + + + + + | Component | Value | Ref Range | Performed | Pathologist | | | | | At | Signature | + + + + + + | Na | 134 | 132 - 143 | [facility] | [...] 24 | 23 - 34 mmol/L | [facility] [...] + + + + | Glucose | 322 (H) | 70 - 110 mg/dL | [facility] | | | | | [facility] | | + + + + + + | BUN | 34 (H) | 5 - 26 mg/dL | [facility] | | | | [facility] | | + + + + + + | Creatinine | 1.00 | 0.70 - 1.40 | [facility] | | | | | mg/dL | [facility] | [facility] | | | [facility] | | + + + + + + | eGFR if not | >60 | >=60 | [facility] | | | | | mL/min/1.73m2 | [facility] | | | | | [facility] | | + + + + + + | Calcium | 9.0 | 8.3 - 10.0 | [facility] | | | | | mg/dL | [facility] | | | | | [facility] | | + + + + + + | BUN/Creatin | 34.0 (H) | 7.0 - 24.0 | [facility] [...] + + | [facility] | [address] | [place] [address] | [phone] | | [facility]ORY | | | [...] + + | [facility] | [address] | [place] [address] | [phone] | | H[facility]ORY | | | | + + + + + Phosphorus (12/08/2018 10:09 PM PDT) + +-------+ + + + | Component | Value | Ref Range | Performed | Pathologist | | | | | At | Signature | + +-------+ + + + | Phosphorus | 4.1 | 2.5 - 4.9 mg/dL | [facility] [...] + + | [facility] | [address] | [place] [address] | [phone] | | H[facility]ORY | | | | + + + + + Magnesium (12/08/2018 10:09 PM PDT) + +-------+ + + + | Component | Value | Ref Range | Performed | Pathologist | | | | | At | Signature | + +-------+ + + + | Magnesium | 2.3 | 1.8 - 2.4 mg/dL | [facility] [...] + + | [facility] | [address] | [place] [address] | [phone] | | H[facility]PITAL [facility] | | | | + + + + + Basic Metabolic Panel (12/08/2018 10:09 PM PDT) + + + + + + | Component | Value | Ref Range | Performed | Pathologist | | | | | At | Signature | + + + + + + | Na | 124 (L)Comment: This is | 132 - 143 | [facility] | | | | an appended report. | mmol/L | [facility] | | | | These results have been | | HOSPITAL | | | | appended to a previously | | LABORATORY | | | | preliminary verified | | | | | | report. | | | | + + + + + + | K | 4.7Comment: This is an | 3.3 - 4.9 | [facility] | | | | appended report. These | mmol/L | [facility] | | | | results have been | | HOSPITAL | | | | appended to a previously | | LABORATORY | | | | preliminary verified | | | | | | report. | | | | + + + + + + | Cl | 89 (L)Comment: This is | 95 - 108 mmol/L | [facility] | | | | an appended report. | | [facility] | | | | These results have been | | HOSPITAL | | | | appended to a previously | | LABORATORY | | | | preliminary verified | | | | | | report. | | | | + + + + + + | CO2 | 21 (L)Comment: This is | 23 - 34 mmol/L | [facility] | | | | an appended report. | | [facility] | | | | These results have been | | HOSPITAL | | | | appended to a previously | | LABORATORY | | | | preliminary verified | | | | | | report. | | | | + + + + + + | Anion Gap | 14Comment: This is an | 7 - 16 mmol/L | [facility] | | | | appended report. These | | [facility] | | | | results have been | | [facility]OSPITAL | | | | appended to a previously | | LABORATORY | | | | preliminary verified | | | | | | report. | | | | + + + + + + | Glucose | 539 () | 70 - 110 mg/dL | [facility] | | | | | | [facility] | | | | [facility] | | | | | | LABORATORY | | + + + + + + | BUN | 41 (H)Comment: This is | 5 - 26 mg/dL | [facility] | | | | an appended report. | | [facility] | | | | These results have been | | HOSPITAL | | | | appended to a previously | | LABORATORY | | | | preliminary verified | | | | | | report. | | | | + + + + + + | Creatinine | 1.44 (H)Comment: This is | 0.70 - 1.40 | [facility] | | | | an appended report. | mg/dL | [facility] | | | | These results have been | | HOSPITAL | | | | appended to a previously | | LABORATORY | | | | preliminary verified | | | | | | report. | | | | + + + + + + | eGFR if not | 47 (L)Comment: This is | >=60 | [facility] | | | | an appended report. | mL/min/1.73m2 | [facility] | | | [place] | These results have been | | HOSPITAL | | | | appended to a previously | | LABORATORY | | | | preliminary verified | | | | | | report. | | | | + + + + + + | Calcium | 9.8Comment: This is an | 8.3 - 10.0 | [facility] | | | | appended report. These | mg/dL | [facility] | | | | results have been | | HOSPITAL | | | | appended to a previously | | LABORATORY | | | | preliminary verified | | | | | | report. | | | | + + + + + + | BUN/Creatin | 28.5 (H)Comment: This is | 7.0 - 24.0 | [facility] | | | ine Ratio | an appended report. | | [facility] | | | | These results have been | | HOSPITAL | | | | appended to a previously | | LABORATORY | | | | preliminary verified | | | | | | report. | | | | + + + + + + + + | Specimen | + + | Blood | + + + + + + + | Performing | Address | City/State/Zipcode | Phone Number | | Organization | | | | + + + + + | [facility] | [address] | [place] [address] | [phone] | | [facility] | | | | + + + + + Ketones, Serum (12/08/2018 10:09 PM PDT) + +-------+ + + + | Component | Value | Ref Range | Performed | Pathologist | | | | | At | Signature | + +-------+ + + + | Acetone, | 0.2 | <0.6 mmol/L | [facility] | | | Serum Quant | | | [facility] | | | [...] + + | [facility] | [address] | [place] [address] | [phone] | | [facility]ITAL [facility] | | | | + + + + + Troponin I (12/08/2018 10:09 PM PDT) + +-------+ + + + [...] | cutoff point for the diagnosis of MD is 0.8 ng/mL for the Troponin I | | | method. 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 12/10/18 at | | | 0909 | | + +---+ | | | + +---+ + +-------+ +-------+---+---+ | amLODIPine (NORVASC) tablet 10 | Given | 12/13/19 | 10 mg | | | | mg 10 mg, Oral, EVERY MORNING, | | 19 8:10 | | | | | First dose on Fri12/09/18 at 0900 | | AM PDT | | | | + +-------+ +-------+---+---+ +-------+ +-------+---+---+ | Given | 12/12/19 | 10 mg | | | | | 19 8:30 | | | | | | AM PDT | | | | +-------+ +-------+---+---+ | Given | 12/11/19 | 10 mg | | | | | 19 9:12 | | | | | | AM PDT | | | | +-------+ +-------+---+---+ +---+---+ | | | +---+---+ + +-------+ +--------+---+---+ | aspirin EC tablet 325 mg 325 | Given | 12/13/19 | 325 mg | | | | mg, Oral, DAILY, First dose on | | 19 8:10 | | | | | 12/09/18 at 0900 | | AM PDT | | | | + +-------+ +--------+---+---+ +-------+ +--------+---+---+ | Given | 12/12/19 | 325 mg | | | | | 19 8:29 | | | | | | AM PDT | | | | +-------+ +--------+---+---+ | Given | 12/11/19 | 325 mg | | | | | 19 9:05 | | | | | | AM PDT | | | | +-------+ +--------+---+---+ +---+---+ | | | +---+---+ + +-------+ +-------+---+---+ | clopidogrel (PLAVIX) tablet 75 | Given | 12/13/19 | 75 mg | | | | mg 75 mg, Oral, EVERY MORNING, | | 19 8:10 | | | | | First dose on Fri12/09/18 at 0900 | | AM PDT | | | | + +-------+ +-------+---+---+ +-------+ +-------+---+---+ | Given | 12/12/19 | 75 mg | | | | | 19 8:30 | | | | | | AM PDT | | | | +-------+ +-------+---+---+ | Given | 12/11/19 | 75 mg | | | | | 19 9:06 | | | | | | AM PDT | | | | +-------+ +-------+---+---+ +---+---+ | | | +---+---+ + +-------+ +-------+---+---+ | DULoxetine (CYMBALTA) DR | Given | 12/13/19 | 60 mg | | | | capsule 60 mg 60 mg, Oral, EVERY | | 19 8:10 | | | | | MORNING, First dose on Fri | | AM PDT | | | | | 12/09/18 at 0900, Do not open | | | | | | | capsule., | | | | | | + +-------+ +-------+---+---+ +-------+ +-------+---+---+ | Given | 12/12/19 | 60 mg | | | | | 19 8:29 | | | | | | AM PDT | | | | +-------+ +-------+---+---+ | Given | 12/11/19 | 60 mg | | | | | 19 9:05 | | | | | | AM PDT | | | | +-------+ +-------+---+---+ +---+---+ | | | +---+---+ + +-------+ +--------+---+---+ | fluconazole (DIFLUCAN) tablet | Given | 12/13/19 | 200 mg | | | | 200 mg 200 mg, Oral, DAILY, | | 19 8:10 | | | | | First dose on Fri12/09/18 at 1130, | | AM PDT | | | | | For 5 doses, Indications: | | | | | | | Candidiasis | | | | | | + +-------+ +--------+---+---+ +-------+ +--------+---+---+ | Given | 12/12/19 | 200 mg | | | | | 19 8:29 | | | | | | AM PDT | | | | +-------+ +--------+---+---+ | Given | 12/11/19 | 200 mg | | | | | 19 9:06 | | | | | | AM PDT | | | | +-------+ +--------+---+---+ +---+---+ | | | +---+---+ + +-------+ + +---+---+ | HYDROcodone-acetaminophen | Given | 12/12/19 | 1 tablet | | | | (NORCO) 5-325 mg per tablet 1-2 | | 19 8:49 | | | | | tablet 1-2 tablet, Oral, EVERY 4 | | PM PDT | | | | | HOURS PRN, Pain, Starting Tue | | | | | | | 12/08/18 at 2328, If ineffective | | | | | | | use [place] 10/325 if ordered. If | | | | | | | not tolerated, use Percocet then | | | | | | | Oxycodone if ordered., | | | | | | + +-------+ + +---+---+ +-------+ + +---+---+ | Given | 12/11/19 | 1 tablet | | | | | 19 9:07 | | | | | | PM PDT | | | | +-------+ + +---+---+ | Given | 12/10/19 | 1 tablet | | | | | 19 8:43 | | | | | | AM PDT | | | | +-------+ + +---+---+ +---+---+ | | | +---+---+ + +-------+ + +---+ + | insulin glargine (LANTUS) | Given | 12/11/19 | 10 Units | | Leg-Left | | injection (vial) 10 Units 10 | | 19 7:40 | | | Upper | | Units, Subcutaneous, ONCE, [place] | | AM PDT | | | | | 12/10/18 at 0730, For 1 dose, For | | | | | | | subcutaneous use only. Basal | | | | | | | (long acting) insulin. Only for | | | | | | | use with U-100 insulin syringe., | | | | | | | If NPO: Decrease dose, by: 25% | | | | | | + +-------+ + +---+ + +---+---+ | | | +---+---+ + +-------+ + +---+ + | insulin glargine (LANTUS) | Given | 12/12/19 | 10 Units | | Arm-Righ | | injection (vial) 10 Units 10 | | 19 11:56 | | | t Upper | | Units, Subcutaneous, ONCE, Fri | | AM PDT | | | | | 12/11/18 at 1130, For 1 dose, For | | | | | | | subcutaneous use only. Basal | | | | | | | (long acting) insulin. Only for | | | | | | | use with U-100 insulin syringe., | | | | | | | If NPO: Decrease dose, by: 25% | | | | | | + +-------+ + +---+ + +---+---+ | | | +---+---+ + +-------+ + +---+ + | insulin glargine (LANTUS) | Given | 12/13/19 | 10 Units | | Arm-Righ | | injection (vial) 10 Units 10 | | 19 9:58 | | | t Upper | | Units, Subcutaneous, ONCE, Sat | | AM PDT | | | | | 12/12/18 at 0945, For 1 dose, For | | | | | | | subcutaneous use only. Basal | | | | | | | (long acting) insulin. Only for | | | | | | | use with U-100 insulin syringe., | | | | | | | If NPO: Decrease dose, by: 25% | | | | | | + +-------+ + +---+ + +---+---+ | | | +---+---+ + +-------+ + +---+ + | insulin glargine (LANTUS) | Given | 12/10/19 | 35 Units | | Arm-Left | | injection (vial) 35 Units 35 | | 19 10:00 | | | Upper | | Units, Subcutaneous, NIGHTLY, | | PM PDT | | | | | First dose on Fri12/08/18 at 2345, | | | | | | | For subcutaneous use only. Basal | | | | | | | (long acting) insulin. Only for | | | | | | | use with U-100 insulin syringe., | | | | | | | If NPO: Decrease dose, by: 25% | | | | | | + +-------+ + +---+ + +-------+ + +---+ + | Given | 12/09/19 | 35 Units | | Arm-Left | | | 19 11:46 | | | Upper | | | PM PDT | | | | +-------+ + +---+ + +---+---+ | | | +---+---+ + +-------+ + +---+ + | insulin glargine (LANTUS) | Given | 12/11/19 | 45 Units | | Abdomen- | | injection (vial) 45 Units 45 | | 19 9:05 | | | LLQ | | Units, Subcutaneous, NIGHTLY, | | PM PDT | | | | | First dose (after last | | | | | | | modification) on [place] 12/10/18 at | | | | | | [...] | insulin glargine (LANTUS) | Given | 12/12/19 | 55 Units | | Arm-Left | | injection (vial) 55 Units 55 | | 19 8:50 | | | Upper | | Units, Subcutaneous, NIGHTLY, | | PM PDT | | | | | First dose (after last | | | | | | | modification) on Fri12/11/18 at | | | | | | [...] | | | + +---+ | insulin glargine (LANTUS) | | | injection (vial) 60 Units 60 | | | Units, Subcutaneous, NIGHTLY, | | | First dose (after last | | | modification) on 12/12/18 at | | | 2100, For subcutaneous use only. | | | Basal (long acting) insulin. Only | | | for use with U-100 insulin | | | syringe., If NPO: Decrease dose, | | | by: 25% | | + +---+ | | | + +---+ + +-------+ +---------+---+ + | insulin lispro (humaLOG) | Given | 12/10/19 | 8 Units | | Arm-Left | | injection (vial) 0-12 Units 0-12 | | 19 12:41 | | | Upper | | Units, Subcutaneous, EVERY 6 | | PM PDT | | | | | HOURS (4 times per day), First | | | | | | | dose on 12/09/18 at 0000, | | | | | | | [...] | | | | | | | 4550-0804 Use NIGHT DOSE for | | | | | | | doses scheduled: HS, 3AM, | | | | | | | Nighttime 0382-7809 If the BG is | | | [...] + +-------+ +---------+---+ + | Given | 12/10/19 | 8 Units | | Arm-Righ | | | 19 6:38 | | | t Upper | | | AM PDT | | | | +-------+ +---------+---+ + | Given | 12/09/19 | 8 Units | | Arm-Left | | | 19 11:49 | | | Upper | | | PM PDT | | | | +-------+ +---------+---+ + +---+---+ | | | +---+---+ + +-------+ +---------+---+ + | insulin lispro (humaLOG) | Given | 12/13/19 | 4 Units | | Abdomen- | | injection (vial) 0-12 Units 0-12 | | 19 8:10 | | | RLQ | | Units, Subcutaneous, 4 TIMES | | AM PDT | | | | | DAILY BEFORE MEALS & NIGHTLY, | | | | | | | First dose (after last | | | | | | | modification) on Fri12/09/18 at | | | | | | | 1745, CORRECTION SCALE: Blood | | | | | | | Glucose (BG) < 150: | | | | | | | None BG 150-200: DAY: 2 units. | | | | | | | NIGHT: 0 units BG 201-250: | | | | | | | DAY: 4 units. NIGHT: 2 units | | | | | | | BG 251-300: DAY: 6 units. | | | | | | | NIGHT: 4 units BG 301-350: DAY: | | | | | | | 8 units. NIGHT: 6 units BG | | [...] | | | | | | | 4299-0454 Use NIGHT DOSE for | | | | | | | doses scheduled: HS, 3AM, | | | | | | | Nighttime 0223-1672 If the BG is | | | [...] + +-------+ +---------+---+ + | Given | 12/12/19 | 4 Units | | Arm-Left | | | 19 8:50 | | | Upper | | | PM PDT | | | | +-------+ +---------+---+ + | Given | 12/12/19 | 8 Units | | Abdomen- | | | 19 4:35 | | | LUQ | | | PM PDT | | | | +-------+ +---------+---+ + +---+---+ | | | +---+---+ + +-------+ + +---+ + | insulin regular (humuLIN R, | Given | 12/10/19 | 20 Units | | Arm-Left | | novoLIN R) injection 20 Units 20 | | 19 8:28 | | | Upper | | Units, Subcutaneous, 3 TIMES | | AM PDT | | | | | DAILY BEFORE MEALS, First dose on | | | | | | | 12/08/18 at 2015, Only for use | | | | | | | with U-100 insulin syringe., | | | | | | + +-------+ + +---+ + +-------+ + +---+ + | Given | 12/09/19 | 20 Units | | Leg-Righ | | | 19 7:56 | | | t Upper | | | PM PDT | | | | +-------+ + +---+ + +---+---+ | | | +---+---+ + +-------+ +---------+---+---+ | levothyroxine (SYNTHROID) | Given | 12/13/19 | 150 mcg | | | | tablet 150 mcg 150 mcg, Oral, | | 19 8:10 | | | | | DAILY BEFORE BREAKFAST, First | | AM PDT | | | | | dose (after last modification) on | | | | | | | 12/11/18 at 0730, Give before | | | | | | | breakfast., | | | | | | + +-------+ +---------+---+---+ +-------+ +---------+---+---+ | Given | 12/12/19 | 150 mcg | | | | | 19 8:30 | | | | | | AM PDT | | | | +-------+ +---------+---+---+ +---+---+ | | | +---+---+ + +-------+ +---------+---+---+ | levothyroxine (SYNTHROID) | Given | 12/11/19 | 250 mcg | | | | tablet 250 mcg 250 mcg, Oral, | | 19 6:32 | | | | | DAILY BEFORE BREAKFAST, First | | AM PDT | | | | | dose on Fri12/09/18 at 0730, Give | | | | | | | before breakfast., | | | | | | + +-------+ +---------+---+---+ +-------+ +---------+---+---+ | Given | 12/10/19 | 250 mcg | | | | | 19 6:38 | | | | | | AM PDT | | | | +-------+ +---------+---+---+ +---+---+ | | | +---+---+ + +-------+ +-------+---+---+ | pantoprazole (PROTONIX) DR | Given | 12/13/19 | 20 mg | | | | tablet 20 mg 20 mg, Oral, DAILY | | 19 6:31 | | | | | BEFORE BREAKFAST, First dose on | | AM PDT | | | | | 12/09/18 at 0730, Do not cut or | | | | | | | crush., 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 | | | | | | + +-------+ +-------+---+---+ +-------+ +-------+---+---+ | Given | 12/12/19 | 20 mg | | | | | 19 6:31 | | | | | | AM PDT | | | | +-------+ +-------+---+---+ +---+---+ | | | +---+---+ + +-------+ +--------+---+---+ | pregabalin (LYRICA) capsule 300 | Given | 12/13/19 | 300 mg | | | | mg 300 mg, Oral, 2 TIMES DAILY, | | 19 8:10 | | | | | First dose on Fri12/08/18 at 2345 | | AM PDT | | | | + +-------+ +--------+---+---+ +-------+ +--------+---+---+ | Given | 12/12/19 | 300 mg | | | | | 19 8:49 | | | | | | PM PDT | | | | +-------+ +--------+---+---+ | Given | 12/12/19 | 300 mg | | | | | 19 8:29 | | | | | | AM PDT | | | | +-------+ +--------+---+---+ +---+---+ | | | +---+---+ + +---------+ +--------+-------+---+ | sodium chloride 0.9% (NS) bolus | New Bag | 12/09/19 | 1,000 | 2000 | | | 1,000 mL 1,000 mL, Intravenous, | | 19 10:13 | mLs | mL/hr | | | Administer over 30 Minutes, | | PM PDT | | | | | ONCE, Era 12/08/18 at 2215, For 1 | | | | | | | dose | | | | | | + +---------+ +--------+-------+---+ +---+---+ | | | +---+---+ + +---------+ +---+ +---+ | sodium chloride 0.9% (NS) | New Bag | 12/13/19 | | 75 mL/hr | | | infusion at 75 mL/hr, | | 19 8:00 | | | | | Intravenous, CONTINUOUS, Starting | | AM PDT | | | | | 12/08/18 at 2345 | | | | | | + +---------+ +---+ +---+ +---------+ +--------+ +---+ | New Bag | 12/12/19 | 1,000 | 75 mL/hr | | | | 19 7:50 | mLs | | | | | PM PDT | | | | +---------+ +--------+ +---+ | New Bag | 12/12/19 | | 75 mL/hr | | | | 19 6:32 | | | | | | AM PDT | | | | +---------+ +--------+ +---+ +---+---+ | | | +---+---+ + +-------+ +--------+---+---+ | tamsulosin (FLOMAX) capsule 0.4 | Given | 12/12/19 | 0.4 mg | | | | mg 0.4 mg, Oral, NIGHTLY, First | | 19 8:49 | | | | | dose on Fri12/08/18 at 2345, Do | | PM PDT | | | | | not crush or chew capsule. If | | | | | | | unable to swallow, may open | | | | | | | capsule and sprinkle over acidic | | | | | | | soft food (applesauce, yogurt) or | | | | | | | in a small quantity of acidic | | | | | | | fruit juice (orange, grape). | | | | | | | Administer immediately (do not | | | | | | | allow granules to dissolve). Do | | | | | | | not administer via tube routes., | | | | | | + +-------+ +--------+---+---+ +-------+ +--------+---+---+ | Given | 12/11/19 | 0.4 mg | | | | | 19 9:07 | | | | | | PM PDT | | | | +-------+ +--------+---+---+ | Given | 12/10/19 | 0.4 mg | | | | | 19 10:00 | | | | | | PM PDT | | | | +-------+ +--------+---+---+ +---+---+ | | | +---+---+ + +-------+ +-------+---+---+ | traMADol (ULTRAM) tablet 50 mg | Given | 12/10/19 | 50 mg | | | | 50 mg, Oral, EVERY 8 HOURS PRN, | | 19 5:35 | | | | | Mild Pain, Starting Fri12/08/18 at | | PM PDT | | | | | 2328 | | | | | | + +-------+ +-------+---+---+ +---+---+ | | | +---+---+ + +-------+ +--------+---+---+ | traZODone (DESYREL) tablet 100 | Given | 12/12/19 | 100 mg | | | | mg 100 mg, Oral, NIGHTLY, First | | 19 8:49 | | | | | dose on Fri12/08/18 at 2345 | | PM PDT | | | | + +-------+ +--------+---+---+ +-------+ +--------+---+---+ | Given | 12/11/19 | 100 mg | | | | | 19 9:07 | | | | | | PM PDT | | | | +-------+ +--------+---+---+ | Given | 12/10/19 | 100 mg | | | | | 19 10:00 | | | | | | PM [...]
--- OUTSIDE RECORDS SUMMARY | ~2019-02-17 | XMS | Encounter Summary ---
Demographics + + + | Address | [address] | | | [place] [address] | + + + | Home Phone [...] Providers + +------+ + | Care Vice President Of Academic Affairs Name | Role | Phone | + +------+ + | Horacio Silvestre DO | PCP | | + +------+ + Reason for Visit +--------+ + | Reason | Comments | +--------+ + | Other | | +--------+ + Encounter Details +--------+ + + + + | Date | Type | Department | Care Team | Description | +--------+ + + + + | 12/11/ | Telephone | [facility] | Horacio Silvestre, | Other | | 2018 | | [facility] | DO [address] | | | | | [facility] [address] | [facility], [place] | | | | | [address] [place], | [address] | | | | | [place] [address] | [phone] | | | | | [phone] | | | +--------+ + + + [...] | 2019 | Visit | | DO [address] | | | | | | [address] | | | | | | [place] | | | | | | [address] | | | | | | [phone] | | | | | | | | +--------+---------+ + + + | 02/26/ | Office | Urology | Lillie Fowler | | | 2018 | Visit | | [address]IE [address] | | | | | | [address] | | | | | | [place] | | | | | | [address] | | | | | | [phone] | | | | | | | | +--------+---------+ + + + | 03/16/ | Office | Neurology | Theresa, | | | 2018 | Visit | | [address] | | | | | [address] [place], | | | | | | [place] [address] | | | | | | [phone] | | | | | | | | +--------+---------+ + + + | 04/12/ | Office | Primary Care | Massimo Ramos | | | 2019 | Visit | | MD Fer [address] | | | | | | [place] | | | | | | [address] | | | | | | | | +--------+---------+ + + + | 10/03/ | Office | Neurology | Fabián Carias MD | | | 2020 | Visit | | [address] | | | | | | [place] | | | | | | [address] | | | | | | | [...] | | | care | | | Marketing Production Manager-C | | | | | | [...] | | | care | | | Marketing Production Manager-C | | | | | | [...] | | | care | | | Marketing Production Manager-C | | | | | | [...] | | | care | | | Marketing Production Manager-C | | | | | | | linical | + +--------+ +---+-----+ + + + | Note: Pt will | | check CBG's daily x1 | | Pt will take Lantis as | | prescribed | + + documented as of this encounter Visit Diagnoses Not on filedocumented in this encounter"
--- OUTSIDE RECORDS SUMMARY | ~2019-02-17 | XMS | Encounter Summary ---
Demographics + + + | Address | [address] | | | [place] [address] | + + + | Home Phone [...] Providers + +------+ + | Care Plastic Sheeting Cutter Name | Role | Phone | + +------+ + | Horacio Silvestre DO | PCP | | + +------+ + Reason for Visit + + + | Reason | Comments | + + + | Procedure | trigger point -lower back | + + + Encounter Details +--------+ + + + + | Date | Type | Department | Care Team | Description | +--------+ + + + + | 12/03/ | Procedure | [facility] | Fabián Carias MD | Chronic low back | | 2019 | visit | [facility] | [address] | pain without | | | | CLINIC [address] | [place] | sciatica, | | | | DR [place], | [address] | unspecified back | | | | [place] [address] | | pain laterality | | | | [phone] | | (Primary Dx); Sprain | | [...] + + + | Blood Pressure | 130/80 | 12/03/2018 10:51 AM | | | | | PDT | | + + + + + | Pulse | 76 | 12/03/2018 10:51 AM | | | | | PDT | | + + + + + | Temperature | - | - | | + + + + + | Respiratory Rate | 20 | 12/03/2018 10:51 AM | | | | | PDT | | + + + + + | Oxygen Saturation | 20% | 12/03/2018 10:51 AM | | | | | PDT | | + + + + + | Inhaled Oxygen | - | - | | | Concentration | | | | + + + + + | Weight | 87.1 kg (192 lb) | 12/03/2018 10:51 AM | | | | | PDT | | + + + + + | Height | 167.6 cm (5' 6") | 12/03/2018 10:51 AM | | | | | PDT | | + + + + + | Body Mass Index | 30.99 | 12/03/2018 10:51 AM | | | | | PDT [...] encounter Progress Notes Cara Campbell RN - 12/03/2018 11:15 AM PDT Trigger Point lower back. Pt. had no complaints after trigger point, BP 130/78 Pulse 79. Pt . given instructions verbally and written, pt stated understanding. Pt ambulated to [facility] difficulty or assistance. Electronically signed by: Cara Campbell RN 12/03/2018 11:33 Toradol injection given 60 mg IM, no adverse reactions noted, per pt has had medication bef ore. Electronically signed by: Cara Campbell RN 12/03/2018 11:18 documented in this encounter Plan of Treatment [...] [place] | | | | | | [address] | | | | | | [phone] | | | | | | | | +--------+---------+ + + + | 02/26/ | Office | Urology | Lillie Fowler | | | 2018 | Visit | | [address]IE [address] | | | | | | [address] [place] | | | | | | [place], [place] | | | | | | [address] | | | | | | [phone] | | | | | | | | +--------+---------+ + + + | 03/16/ | Office | Neurology | Theresa, | | | 2018 | Visit | | [address] | | | | [address] [place], | | | | | | [place] [address] | | | | | | [phone] | | | | | | | | +--------+---------+ + + + | 04/12/ | Office | Primary Care | Massimo Ramos | | | 2019 | Visit | | MD Fer [address] | | | | | | [address] [place], [place] | | | | | | [address] | | | | | | | | +--------+---------+ + + + | 10/03/ | Office | Neurology | Fabián Carias MD | | | 2019 | Visit | | [address] | | | | | | [place], [place] | | | | | | [address] | | | | | | | [...] | | | care | | | Project Coordinator-C | | | | | [...] | | | care | | | Project Coordinator-C | | | | | [...] | | | care | | | Project Coordinator-C | | | | | [...] | | | care | | | Project Coordinator-C | | | | | [...] | + +--------+ + + + | WI INJECT TRIGGER | Routin | 12/03/2018 | [...] | bupivacaine (MARCAINE) 0.5% | Given | 12/04/19 | 10 mLs | | | | injection 10 mL 10 mL, Other, | | 19 11:27 | | | | | ONCE, [facility] 12/03/18 at 1145, For 1 | | AM PDT | | | | | dose, IM, | | | | | | + +--------+ +--------+------+------+ +---+---+ | | | +---+---+ + +-------+ +-------+---+ + | ketorolac (TORADOL) injection | Given | 12/04/19 | 60 mg | | Ventrogl | | 60 mg 60 mg, Intramuscular, | | 19 11:19 | | | uteal-Ri | | ONCE, [facility] 12/03/18 at 1130, For 1 | | AM PDT | | | ght | | dose | | | | | | + +-------+ +-------+---+ + +---+---+ | | | +---+---+ + +-------+ +--------+---+ + | lidocaine 1% injection 20 mL | Given | 12/04/19 | 20 mLs | | Other | | 20 mL, Intramuscular, ONCE, [facility] | | 19 11:27 | | | (Comment | | 12/03/18 at 1145, For 1 dose | | AM PDT | | | ) | + +-------+ +--------+---+ + +---+---+ | | | +---+---+ + +-------+ +--------+---+ + | methylPREDNISolone acetate | Given | 12/04/19 | 400 mg | | Other | | (DEPO-MEDROL) 40 mg/mL injection | | 19 11:27 | | | (Comment | | 400 mg 400 mg, Intramuscular, | | AM PDT | | | ) | | ONCE, [facility] 12/03/18 at 1145, For 1 | | | | | [...]
--- OUTSIDE RECORDS SUMMARY | ~2019-02-17 | XMS | Encounter Summary ---
Demographics + + + | Address | [address] | | | [place] [address] | + + + | Home Phone | | + + + | Preferred Language | Unknown | + + + | Marital Status | | + + + | Religion Affiliation | 1025 | + + + | Race | Unknown | + + + | Ethnic Group | Unknown | + + + Author + + + | Author | [facility] | | | and [place] | + + + | Organization | [facility] | | | [...] Team Providers + +------+ + | Care Navigation Officer Name | Role | Phone | + +------+ + | Ryan Gutiérrez MD | PCP | | + +------+ + Encounter Details +--------+ + + + + | Date | Type | Department | Care Team | Description | +--------+ + + + + | 11/27/ | Hospital | [facility] | Horacio Silvestre, | | | 2017 | Encounter | [facility] | DO [address] | | | | | [facility] [address] | [place], [place] | | | | [address] [place], | [address] | | | | | [place] [address] | [phone] | | | | | [phone] | | | +--------+ + + + [...] [place] | | | | | | [address] | | | | | | [phone] | | | | | | | | +--------+---------+ + + + | 02/26/ | Office | Urology | Lillie Fowler | | | 2018 | Visit | | LILLIE Lopez [address] | | | | | | [address] | | | | | | [place], [place] | | | | | | [address] | | | | | | [phone] | | | | | | | | +--------+---------+ + + + | 03/16/ | Office | Neurology | Theresa, | | | 2018 | Visit | | [address] | | | | | | [address] [place], | | | | | | [place] [address] | | | | | | [phone] | | | | | | | | +--------+---------+ + + + | 04/12/ | Office | Primary Care | Massimo Ramos | | | 2019 | Visit | | MD Fer [address] | | | | | | [place] | | | | | | [address] | | | | | | | | +--------+---------+ + + + | 10/03/ | Office | Neurology | Fabián Carias MD | | | 2019 | Visit | | [address] | | | | | | [place] | | | | | | [address] | | | | | | | [...] | | | care | | | Psychopaedic Nurse-C | | | | | | [...] | | | care | | | Psychopaedic Nurse-C | | | | | | [...] | | | care | | | Psychopaedic Nurse-C | | | | | | [...] | | | care | | | Psychopaedic Nurse-C | | | | | | | linical | + +--------+ +---+-----+ + + + | Note: Pt will | | check CBG's daily x1 | | Pt will take Lantis as | | prescribed | + + documented as of this encounter Visit Diagnoses Not on filedocumented in this encounter"
--- OUTSIDE RECORDS SUMMARY | ~2019-02-17 | XMS | Encounter Summary ---
Demographics + + + | Address | [address] | | | [place] [address] | + + + | Home Phone [...] Team Providers + +------+ + | Care Chief Informatics Officer Name | Role | Phone | + +------+ + | Horacio Silvestre DO | PCP | | + +------+ + Reason for Visit + + + | Reason | Comments | + + + | Financial Concerns | | + + + Encounter Details +--------+ + + + + | Date | Type | Department | Care Team | Description | +--------+ + + + + | 09/16/ | Telephone | [facility] | Woodrow Baum, | Financial Concerns | | 2019 | | [facility] | [facility] [address] | | | | | MEDICAL CLINIC [address] | [place] [address] | | | | | [address] [place], | [phone] | | | | | [place] [address] | | | | | | [phone] | | | +--------+ + + + [...] [place] | | | | | | [address] | | | | | | [phone] | | | | | | | | +--------+---------+ + + + | 02/26/ | Office | Urology | Lillie Fowler | | | 2018 | Visit | | [address]ILLIE Lopez [address] | | | | | | [address] | | | | | | [place], [place] | | | | | | [address] | | | | | | [phone] | | | | | | | | +--------+---------+ + + + | 03/16/ | Office | Neurology | Theresa, | | | 2018 | Visit | | [address] | | | | | | [address] [place], | | | | | | [place] [address] | | | | | | [phone] | | | | | | | | +--------+---------+ + + + | 04/12/ | Office | Primary Care | Richard Massimo Pedro Luis | | | 2019 | Visit | | MD Fer [address] | | | | | | [place] | | | | | | [address] | | | | | | | | +--------+---------+ + + + | 10/03/ | Office | Neurology | Fabián Carias MD | | | 2019 | Visit | | [address] | | | | | | [place] | | | | | | [address] | | | | | | | [...] | | | care | | | Cook Apprentice Pastry-C | | | | | | | [...] | | | care | | | Cook Apprentice Pastry-C | | | | | | | [...] | | | care | | | Cook Apprentice Pastry-C | | | | | | | [...] | | | care | | | Cook Apprentice Pastry-C | | | | | | | [...]
--- OUTSIDE RECORDS SUMMARY | ~2019-02-17 | XMS | Encounter Summary ---
Demographics + + + | Address | [address] | | | [place] [address] | + + + | Home Phone [...] Team Providers + +------+ + | Care Biomass Plant Technician Name | Role | Phone | [...] | | [place], [place] | [place] [address] | (FORMERLY [facility]) (Primary Dx); | | 2018 | | [address] | [phone] | Type 2 diabetes | | | | [phone] | | mellitus with | | | | | Macario Coulter | hyperglycemia, with | | | | | MD Magdalena [address] | long-term current | | | | | [address] | use of insulin | | | | | [place] [address] | (FORMERLY [facility]); VIKAS (acute | | | | | [phone] | kidney injury) | | | | | | (FORMERLY [facility]); 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, with | | | | | | long-term current | | | | | | use of insulin ([facility]) | +--------+ + + + + Social [...] 03/07/2017 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, 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 He will go to [facility] few [facility] and be [...] studies at time of discharge: None Disposition: [facility] Follow-Up Plans: Horacio Silvestre DO [address] [facility] [place] [address] In 1 week Electronically signed by: Macario Coulter 07/17/2018 10:48 [facility] Time spent discharging this patient: 40 minutes documented in this encounter Discharge Instructions AttachmentsThe following attachments cannot be sent through Care Everywhere.Dehydration (Ad ult) (Haitian)Blood Sugar, Low; Hypoglycemia (Haitian)Adult, Pneumonia (Haitian)documented i n this encounter Medications at Time [...] male hospitalized for VIKAS (acute kidney injury) (FORMERLY [facility]) Assessment and Plan: Principal Problem: VIKAS (acute [...] signed by: Macario Coulter 07/16/2018 15:42 [facility] Portions of this chart may have [...] male hospitalized for VIKAS (acute kidney injury) (FORMERLY [facility]) Assessment and Plan: Principal Problem: VIKAS (acute [...] No pronator drift. 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 Please see CARD HAND med list for updated medication list. [...] [place] | | | | | | [address] | | | | | | [phone] | | | | | | | | +--------+---------+ + + + | 02/26/ | Office | Urology | Lillie Fowler | | | 2018 | Visit | | [address] | | | | | | [address] | | | | | | [place], [place] | | | | | | [address] | | | | | | [phone] | | | | | | | | +--------+---------+ + + + | 03/16/ | Office | Neurology | Theresa, | | | 2018 | Visit | | [address] | | | | | | [address] [place], | | | | | | [place] [address] | | | | | | [phone] | | | | | | | [...] [place] | | | | | | [address] | | | | | | | [...] | | | care | | | Chemistry Faculty Member-C | | | | | | [...] | | | care | | | Chemistry Faculty Member-C | | | | | | [...] | | | care | | | Chemistry Faculty Member-C | | | | | | [...] | | | care | | | Chemistry Faculty Member-C | | | | | | [...] J?MRN: | | | | | | [id number] | | | [id number] | | | riteri | | | [...] | | | [place] | | | Process Control Engineer | | | al | | | [...] | | | [place] | | | Process Control Engineer | | | al | | | [...] | | | [place] | | | Process Control Engineer | | | al | | | [...] | | | [id number] | | | [id number] | | | [id number] | | | [...] + + | [facility] | [address] | [place] [address] | [phone] | | [facility] | | | [...] + + | [facility] | [address] | [place] [address] | [phone] | | [facility] | | | [...] + + | [facility] | [address] | [place] [address] | [phone] | | [facility] | | | [...] + + | [facility] | [address] | [place] [address] | [phone] | | [facility] | | | [...] - 1.030 | [place] | | | [place] | | | [facility] | | | [...] + + | [facility] | [address] | [place] [address] | [phone] | | [facility] | | | [...] + + | [facility] | [address] | [place] [address] | [phone] | | [facility] | | | [...] + + | [facility] | [address] | [place] [address] | [phone] | | [facility] | | | [...] + + | [facility] | [address] | [place] [address] | [phone] | | [facility]ITAL [facility] | | | [...] + + | [facility] | [address] | [place] [address] | [phone] | | [facility]ITAL [facility] | | | [...] | 1.32 | 0.70 - 1.40 | [facility] | | | | | mg/dL | [facility] | | | | | | [facility] | | | | | | LABORATORY | | + +---------+ + + + | eGFR if not | 52 (L) | >=60 | [place] | | | | | mL/min/1.73m2 | [facility] | | | [facility] | | [facility] | | | [...] + + | [facility] | [address] | [place] [address] | [phone] | | [facility]ITAL [facility] | | | [...] + + | [place] [facility] | [address] | [place] [address] | [phone] | | [facility]ITAL [facility] | | | [...] + + | [facility] [facility] | [address] | [place] [address] | [phone] | | [facility] | | | [...] + + | [facility] | [address] | [place] [address] | [phone] | | [facility] | | | [...] + + | [facility] | [address] | [place] [address] | [phone] | | [facility] | | | [...] + + | [facility] | [address] | [place] [address] | [phone] | | [facility] | | | [...] + + | [facility] | [address] | [place] [address] | [phone] | | [facility] | | | [...] + + | [facility] | [address] | [place] [address] | [phone] | | [facility] | | | [...] | mL/min/1.73m2 | [facility] | | | [facility] | | [facility] | | | [...] + + | [facility] | [address] | [place] [address] | [phone] | | [facility] | | | [...] - 1.030 | [place] | | | [place] | | | [facility] | | | [...] UA | 0-2 | <=5 /HPF | [facility] | | | | | [...] + + | [facility] | [address] | [place] [address] | [phone] | | [facility]ITAL [facility] | | | [...] + + | [facility] | [address] | [place] [address] | [phone] | | [facility] | | | [...] + + | [facility] | [address] | [place] [address] | [phone] | | [facility] | | | [...] + + | [facility] | [address] | [place] [address] | [phone] | | [facility] | | | [...] go | | | | | | [email or web address] | | | | | | [email or web address] | | | | | | 6 Test(s) performed at: | | | | | | [facility] | | | | | | ELIAZAR Ibarra | | | | | | Antonieta Clayton M.D., Ph.D. | | | | | | [employer] | | | | | | [address] [facility] | | | | | | [place] | | | | | | [place] | | | | | | #[id number] | | | | + + + + + + + + | Specimen | + + | Blood | + + + + + + + | Performing | Address | City/State/Zipcode | Phone Number | | Organization | | | | + + + + + | REFERENCE [facility] | [address] [facility] | [place], [place] | | | [facility] - | | [address] | | | FRANCINE LOZADA | | [...] + + | [facility] | [address] | [place] [address] | [phone] | | [facility] | | | [...] + + | [facility] | [address] | [place] [address] | [phone] | | [facility]ITAL [facility] | | | [...] + + | [facility] | [address] | [place] [address] | [phone] | | [facility] | | | [...] + + | [facility] | [address] | [place] [address] | [phone] | | [facility]ITAL [facility] | | | [...] + + | [facility] | [address] | [place] [address] | [phone] | | [facility] | | | [...] + + | [facility] | [address] | [place] [address] | [phone] | | [facility] | | | [...] + + | [facility] | [address] | [place] [address] | [phone] | | [facility] | | | [...] + + | [facility] | [address] | [place] [address] | [phone] | | [facility] | | | [...] + | A study performed by the rivet tapping machine operator using this assay showed a 99% | [...] + + | [facility] | [address] | [place] [address] | [phone] | | [facility] | | | [...] | cutoff point for the diagnosis of [place] is 0.8 ng/mL for the Troponin I | | | method. | | + + + + + + + + | Performing | Address | City/State/Zipcode | Phone Number | | Organization | | | | + + + + + | [facility] | [address] | [place] [address] | [phone] | | [facility] | | | [...] | mL/min/1.73m2 | [facility] | | | [facility] | RATE,ESTIMATED | | [facility]OSP[facility] | | | | mL/min/1.86f2Ezmr than | | LABORATORY | | | [...] + + | [facility] | [address] | [place] [address] | [phone] | | [facility]ITAL [facility] | | | [...] + + | [facility] | [address] | [place] [address] | [phone] | | [facility]ITAL [facility] | | | | + + + + + ECG 12 lead (07/14/2018 11:55 AM PDT) + + | Specimen | + + | | + + + + + | Narrative | Performed At | + + + | Heart Rate: 80 | [facility] | | bpmQRS Interval: 94 msQT Interval: 388 msQTC Interval: 448 msP [place]: | TRACEMASTER | | 19 degQRS [place]: -31 degT Wave [place]: 13 degP-R Interval: 176 msec- | | | OTHERWISE NORMAL ECG -SINUS RHYTHMLEFT AXIS DEVIATION | | |P [place]: 19 deg | | |QRS [place]: -31 deg | | |T Wave [place]: 13 deg | | |P-R Interval: 176 [...] | | | | AC, NPO, Daytime 1428-4824 Use | | | | | | | NIGHT DOSE for doses scheduled: | | | | | | | HS, 3AM, Nighttime 5702-9164 | | | | | | | [...]
--- OUTSIDE RECORDS SUMMARY | ~2019-02-17 | XMS | Encounter Summary ---
Demographics + + + | Address | [address] | | | [place] [address] | + + + | Home Phone | | + + + | Preferred Language | Unknown | + + + | Marital Status | | + + + | Baptism Affiliation | 1025 | + + + [...] Team Providers + +------+ + | Care Flying I Instructor Name | Role | Phone | [...] | [address] [place], [place] | [place] [address] | generalized | | | | [address] | [phone] | | | | | [phone] | | | +--------+ + + + [...] | | | | | | | ([facility]), Multilevel | | | | | | [...] [place] | | | | | | [address] | | | | | | [phone] | | | | | | | | +--------+---------+ + + + | 02/26/ | Office | Urology | Lillie Fowler | | | 2018 | Visit | | [address]ILLIE Lopez [address] | | | | | | [address] | | | | | | [place], [place] | | | | | | [address] | | | | | | [phone] | | | | | | | | +--------+---------+ + + + | 03/16/ | Office | Neurology | Theresa, | | | 2018 | Visit | | [address] | | | | | | [address] [place], | | | | | | [place] [address] | | | | | | [phone] | | | | | | | | +--------+---------+ + + + | 04/12/ | Office | Primary Care | Massimo Ramos | | | 2019 | Visit | | MD Fer [address] | | | | | | [place] | | | | | | [address] | | | | | | | | +--------+---------+ + + + | 10/03/ | Office | Neurology | Fabián Carias MD | | | 2019 | Visit | | [address] | | | | | | [place] | | | | | | [address] | | | | | | | [...] | | | care | | | [employer] Hospitalist-C | | | | | | | [...] | | | care | | | [facility] Hospitalist-C | | | | | | | [...] | | | care | | | [facility] [facility] Hospitalist-C | | | | | | | [...] | | | care | | | [facility] Hospitalist-C | | | | | | | [...] + + | [facility] | [address] | [place] [address] | [phone] | | [facility]OS[facility]ITAL [facility] | | | [...] - 1.030 | [place] | | | [place] | | | [facility] | | | [...] + + | [facility] | [address] | [place] [address] | [phone] | | [facility]ITAL [facility] | | | [...] + + | [facility] | [address] | [place] [address] | [phone] | | [facility]ITAL [facility] | | | [...] + + | [facility] | [address] | [place] [address] | [phone] | | [facility]ITAL [facility] | | | [...] | cutoff point for the diagnosis of [place] is 0.8 ng/mL for the Troponin I | | | method. | | + + + + + + + + | Performing | Address | City/State/Zipcode | Phone Number | | Organization | | | | + + + + + | [facility] | [address] | [place] [address] | [phone] | | [facility] | | | [...] + + | [facility] | [address] | [place] [address] | [phone] | | [facility]ITAL [facility] | | | [...] | mL/min/1.73m2 | [facility] | | | [place] | RATE,ESTIMATED | | HOSPITAL | | | | mL/min/1.88p1Oemn than | | LABORATORY | | | [...] + + | [facility] | [address] | [place] [address] | [phone] | | [facility]ITAL [facility] | | | [...] + + | [facility] | [address] | [place] [address] | [phone] | | [facility] | | | | + + + + + ECG 12 lead (09/30/2018 2:36 PM PDT) + + | Specimen | + + | | + + + + + | Narrative | Performed At | + + + | Heart Rate: 89 | [facility] | | bpmQRS Interval: 86 msQT Interval: 348 msQTC Interval: 424 msP [place]: | TRACEMASTER | | 52 degQRS [place]: -1 degT Wave [place]: 18 degP-R Interval: 176 msec- | | [...]
--- OUTSIDE RECORDS SUMMARY | ~2019-02-17 | XMS | Encounter Summary ---
Demographics + + + | Address | [address] | | | [place] [address] | + + + | Home Phone [...] Team Providers + +------+ + | Care District Sales Leader Name | Role | Phone | [...] Medication Refill | | 2016 | | [facility] | [address] | | | | | MEDICAL CLIN[address] | [facility], [place] | | | | | [address] [place], | [address] | | | | | [place] [address] | [phone] | | | | | [phone] | | | +--------+--------+ + + + [...] [place] | | | | | | [address] | | | | | | [phone] | | | | | | | | +--------+---------+ + + + | 02/26/ | Office | Urology | Malcolm Lillie | | | 2018 | Visit | | [address] | | | | | | [address] | | | | | | [place], [place] | | | | | | [address] | | | | | | [phone] | | | | | | | | +--------+---------+ + + + | 03/16/ | Office | Neurology | Theresa, | | | 2018 | Visit | | [address] | | | | | | [address] [place], | | | | | | [place] [address] | | | | | | [phone] | | | | | | | | +--------+---------+ + + + | 04/12/ | Office | Primary Care | Massimo Ramos | | | 2019 | Visit | | MD Fer [address] | | | | | | [place] | | | | | | [address] | | | | | | | | +--------+---------+ + + + | 10/03/ | Office | Neurology | Fabián Carias MD | | | 2019 | Visit | | [address] | | | | | | [place] | | | | | | [address] | | | | | | | [...] | | | care | | | Dairy Supplies Sales Representative-C | | | | | [...] | | | care | | | Dairy Supplies Sales Representative-C | | | | | [...] | | | care | | | Dairy Supplies Sales Representative-C | | | | | [...] | | | care | | | Dairy Supplies Sales Representative-C | | | | | | | linical | + +--------+ +---+-----+ + + + | Note: Pt will | | check CBG's daily x1 | | Pt will take Lantis as | | prescribed | + + documented as of this encounter Visit Diagnoses Not on filedocumented in this encounter"
--- OUTSIDE RECORDS SUMMARY | ~2019-02-17 | XMS | Encounter Summary ---
Demographics + + + | Address | [address] | | | [place] [address] | + + + | Home Phone | | + + + | Preferred Language | Unknown | + + + | Marital Status | | + + + | Buddhist Affiliation | 1025 | + + + [...] Team Providers + +------+ + | Care Stoker Installer Name | Role | Phone | + +------+ + | Ryan Gutiérrez MD | PCP | | + +------+ + Encounter Details +--------+ + + + + | Date | Type | Department | Care Team | Description | +--------+ + + + + | 02/19/ | [facility] | María aMrie | | | 2016 | Encounter | [facility] | Carlos, JUVENILE OFFICER [address] | | | | | MEDICAL CLIN[address] | [place], [place] | | | | | [address] [place], | [address] | | | | | [place] [address] | [phone] | | | | | [phone] | | | +--------+ + + + [...] [place] | | | | | | [address] | | | | | | [phone] | | | | | | | | +--------+---------+ + + + | 02/26/ | Office | Urology | Lillie Fowler | | | 2018 | Visit | | [address]ILLIE Lopez [address] | | | | | | [address] | | | | | | [place] | | | | | | [address] | | | | | | [phone] | | | | | | | | +--------+---------+ + + + | 03/16/ | Office | Neurology | Theresa, | | | 2018 | Visit | | [address] | | | | | | [address] [place], | | | | | | [place] [address] | | | | | | [phone] | | | | | | | | +--------+---------+ + + + | 04/12/ | Office | Primary Care | Massimo Ramos | | | 2019 | Visit | | MD Fer [address] | | | | | | [place] | | | | | | [address] | | | | | | | | +--------+---------+ + + + | 10/03/ | Office | Neurology | Fabián Carias MD | | | 2019 | Visit | | [address] | | | | | | [place] | | | | | | [address] | | | | | | | [...] | | care | | | Home Stereo Equipment Installer-C | | | | | | [...] | | care | | | Home Stereo Equipment Installer-C | | | | | | [...] | | care | | | Home Stereo Equipment Installer-C | | | | | | [...] | | care | | | Home Stereo Equipment Installer-C | | | | | | | linical | + +--------+ +---+-----+ + + + | Note: Pt will | | check CBG's daily x1 | | Pt will take Lantis as | | prescribed | + + documented as of this encounter Visit Diagnoses Not on filedocumented in this encounter"
--- OUTSIDE RECORDS SUMMARY | ~2019-02-17 | XMS | Encounter Summary ---
Demographics + + + | Address | [address] | | | [place] [address] | + + + | Home Phone [...] Team Providers + +------+ + | Care Chicken Catcher Name | Role | Phone | + [...] Medication Question | | 2019 | | [facility] | [address] | | | | | MEDICAL CLIN[address] | [facility], [place] | | | | | [address] [place], | [address] | | | | | [place] [address] | [phone] | | | | | [phone] | | | +--------+ + + + [...] [place] | | | | | | [address] | | | | | | [phone] | | | | | | | | +--------+---------+ + + + | 02/26/ | Office | Urology | Lillie Fowler | | | 2018 | Visit | | LILLIE Lopez [address] | | | | | | [address] | | | | | | [place], [place] | | | | | | [address] | | | | | | [phone] | | | | | | | | +--------+---------+ + + + | 03/16/ | Office | Neurology | Theresa, | | | 2019 | Visit | | SHONDA Mck[address] | | | | | [address] [place], | | | | | | [place] [address] | | | | | | [phone] | | | | | | | | +--------+---------+ + + + | 04/12/ | Office | Primary Care | Massimo Ramos | | | 2019 | Visit | | MD [address] | | | | | | [place] | | | | | | [address] | | | | | | | | +--------+---------+ + + + | 10/03/ | Office | Neurology | Fabián Carias MD | | | 2019 | Visit | | [address] | | | | | | [place] | | | | | | [address] | | | | | | | [...] | | | care | | | Safety Investigator-C | | | | | | | [...] | | | care | | | Safety Investigator-C | | | | | | | [...] | | | care | | | Safety Investigator-C | | | | | | | [...] | | | care | | | Safety Investigator-C | | | | | | | [...]
--- OUTSIDE RECORDS SUMMARY | ~2019-02-17 | XMS | Encounter Summary ---
Demographics + + + | Address | [address] | | | [place] [address] | + + + | Home Phone [...] Team Providers + +------+ + | Care Sanitary Landfill Supervisor Name | Role | Phone | [...] | | | [facility] | [facility], [place] | | | | | [address] [place], | [address] | | | | | [place] [address] | [phone] | | | | | [phone] | | | +--------+--------+ + + + [...] 02/25/ | Office | General Surgery | Sctot De Oliveira | | | 2018 | Visit | | DO Jalen [address] | | | | | | [address] | | | | | | [place], [place] | | | | | | [address] | | | | | | [phone] | | | | | | | | +--------+---------+ + + + | 02/26/ | Office | Urology | Lillie Fowler | | | 2019 | Visit | | LILLIE Lopez [address] | | | | | | [address] | | | | | | [place], [place] | | | | | | [address] | | | | | | [phone] | | | | | | | | +--------+---------+ + + + | 03/16/ | Office | Neurology | Theresa, | | | 2018 | Visit | | [address] | | | | | | [address] [place], | | | | | | [place] [address] | | | | | | [phone] | | | | | | | | +--------+---------+ + + + | 04/12/ | Office | Primary Care | Massimo Ramos Pedro Luis | | | 2019 | Visit | | MD [address] | | | | | | [place] | | | | | | [address] | | | | | | | | +--------+---------+ + + + | 10/03/ | Office | Neurology | Fabián Carias MD | | | 2019 | Visit | | [address] | | | | | | [place] | | | | | | [address] | | | | | | | [...] | | | care | | | Ball Shagger-C | | | | | | | [...] | | | care | | | Ball Shagger-C | | | | | | | [...] | | | care | | | Ball Shagger-C | | | | | | | [...] | | | care | | | Ball Shagger-C | | | | | | | linical | + +--------+ +---+-----+ + + + | Note: Pt will | | check CBG's daily x1 | | Pt will take Lantis as | | prescribed | + + documented as of this encounter Visit Diagnoses Not on filedocumented in this encounter"
--- OUTSIDE RECORDS SUMMARY | ~2019-02-17 | XMS | Encounter Summary ---
Demographics + + + | Address | [address] | | | [place] [address] | + + + | Home Phone [...] Team Providers + +------+ + | Care Ict Programmer Name | Role | Phone | + +------+ + | Horacio Silvestre DO | PCP | | + +------+ + Reason for Visit + + + | Reason | Comments | + + + | Labs Only | | + + + Encounter Details +--------+ + + + + | Date | Type | Department | Care Team | Description | +--------+ + + + + | 09/09/ | Telephone | [facility] | Horacio Silvestre, | Labs Only | | 2018 | | [facility] | DO [address] | | | | | [facility] [address] | [place], [place] | | | | | [address] [place], | [address] | | | | | [place] [address] | [phone] | | | | | [phone] | | | +--------+ + + + [...] [place] | | | | | | [address] | | | | | | [phone] | | | | | | | | +--------+---------+ + + + | 02/26/ | Office | Urology | Lillie Fowler | | | 2018 | Visit | | [address] | | | | | [address] | | | | | | [place] | | | | | | [address] | | | | | | [phone] | | | | | | | | +--------+---------+ + + + | 03/16/ | Office | Neurology | Theresa, | | | 2018 | Visit | | [address] | | | | | | [address] [place], | | | | | | [place] [address] | | | | | | [phone] | | | | | | | | +--------+---------+ + + + | 04/12/ | Office | Primary Care | Massimo Ramos | | | 2019 | Visit | | MD Fer [address] | | | | | | [place] | | | | | | [address] | | | | | | | | +--------+---------+ + + + | 10/03/ | Office | Neurology | Fabián Carias MD | | | 2019 | Visit | | [address] | | | | | | [place] | | | | | | [address] | | | | | | | [...] | | | care | | | Revit Drafter-C | | | | | | [...] | | | care | | | Revit Drafter-C | | | | | | [...] | | | care | | | Revit Drafter-C | | | | | | [...] | | | care | | | Revit Drafter-C | | | | | | | linical | + +--------+ +---+-----+ + + + | Note: Pt will | | check CBG's daily x1 | | Pt will take Lantis as | | prescribed | + + documented as of this encounter Visit Diagnoses Not on filedocumented in this encounter"
--- OUTSIDE RECORDS SUMMARY | ~2019-02-17 | XMS | Encounter Summary ---
Demographics + + + | Address | [address] | | | [place] [address] | + + + | Home Phone [...] Team Providers + +------+ + | Care Life Sciences Instructor Name | Role | Phone | + +------+ + | Ryan Gutiérrez MD | PCP | | + +------+ + Encounter Details +--------+ + + + + | Date | Type | Department | Care Team | Description | +--------+ + + + + | 07/09/ | Hospital | [facility] | Horacio Silvestre, | | | 2017 | Encounter | [facility] | DO [address] | | | | | [address] [place] | [place], [place] | | | | | [place], [place] | [address] | | | | | [address] | [phone] | | | | | [phone] | | | +--------+ + + + [...] [place] | | | | | | [address] | | | | | | [phone] | | | | | | | | +--------+---------+ + + + | 02/26/ | Office | Urology | Lillie Fowler | | | 2018 | Visit | | [address]IE [address] | | | | | | [address] | | | | | | [place] | | | | | | [address] | | | | | | [phone] | | | | | | | | +--------+---------+ + + + | 03/16/ | Office | Neurology | Theresa, | | | 2018 | Visit | | [address] | | | | | | [address] [place], | | | | | | [place] [address] | | | | | | [phone] | | | | | | | | +--------+---------+ + + + | 04/12/ | Office | Primary Care | Massimo Ramos | | | 2019 | Visit | | MD Fer [address] | | | | | | [place] | | | | | | [address] | | | | | | | | +--------+---------+ + + + | 10/03/ | Office | Neurology | Fabián Carias MD | | | 2019 | Visit | | [address] | | | | | | [place] | | | | | | [address] | | | | | | | [...] | | | care | | | Electrician-C | | | | | | | [...] | | | care | | | Electrician-C | | | | | | | [...] | | | care | | | Electrician-C | | | | | | | [...] | | | care | | | Electrician-C | | | | | | | [...] + + | CBC WITH MANUAL | Routin | 07/09/2016 | | Results for this | | DIFFERENTIAL | e | 8:11 AM | | procedure are in the | | | | PDT | | results section. | + +--------+ + + + | MICROALBUMIN, URINE, | Routin | 07/09/2016 | | Results for this | | RANDOM | e | 8:11 AM | | procedure are in the | | | | PDT | | results section. | + +--------+ + + + | LIPID PANEL | Routin | 07/09/2016 | | Results for this | | | e | 8:11 AM | | procedure are in the | | | | PDT | | results section. | + +--------+ + + + | TSH | Routin | 07/09/2016 | | Results for this | | | e | 8:11 AM | | procedure are in the | | | | PDT | | results section. | + +--------+ + + + | T4, FREE | Routin | 07/09/2016 | | Results for this | | | e | 8:11 AM | | procedure are in the | | | | PDT | | results section. | + +--------+ + + + | PSA, DIAGNOSTIC | Routin | 07/09/2016 | | Results for this | | | e | 8:11 AM | | procedure are in the | | | | PDT | | results section. | + +--------+ + + + | HEMOGLOBIN A1C | Routin | 07/09/2016 | | Results for this | | | e | 8:11 AM | | procedure are in the | | | | PDT | | results section. | + +--------+ + + + | COMPREHENSIVE | Routin | 07/09/2016 | | Results for this | | METABOLIC PANEL | e | 8:11 AM | | procedure are in the | | | | PDT | | results section. | + +--------+ + + + documented in this encounter Results CBC with Manual Differential (07/09/2016 8:11 AM PDT) + +--------+ + + + | Component | Value | Ref Range | Performed | Pathologist | | | | | At | Signature | + +--------+ + + + | WBC | 9.7 | 4.6 - 10.5 | EXTERNAL | | | | | 1000/mm3 | LAB | | + +--------+ + + + | RBC | 4.34 | 4.36 - 5.83 | EXTERNAL | | | | | mil/mm3 | LAB | | + +--------+ + + + | HGB, | 12.7 | 13.1 - 17.4 | EXTERNAL | | | External | | g/dL | LAB | | + +--------+ + + + | HCT, | 40.1 | 39.0 - 51.9 % | EXTERNAL | | | External | | | LAB | | + +--------+ + + + | MCV | 92 | 82 - 96 fl | EXTERNAL | | | | | | LAB | | + +--------+ + + + | MCH | 29.3 | 27.7 - 32.3 pg | EXTERNAL | | | | | | LAB | | + +--------+ + + + | MCHC | 31.7 | 32.0 - 36.9 | EXTERNAL | | | | | g/dL | LAB | | + +--------+ + + + | RDW-CV | 17.3 | <=17.0 % | EXTERNAL | | | | | | LAB | | + +--------+ + + + | Platelet | 177 | 150 - 450 | EXTERNAL | | | Count | | 1000/mm3 | LAB | | | Plasma | | | | | + +--------+ + + + | MPV | 11.6 | 9.4 - 12.4 FL | EXTERNAL | | | | | | LAB | | + +--------+ + + + | % Segmented | 62 | 42 - 76 % | EXTERNAL | | | | | | LAB | | | Neutrophils | | | | | + +--------+ + + + | % Bands | 4 | <=7 % | EXTERNAL | | | | | | LAB | | + +--------+ + + + | % | 1 | % | EXTERNAL | | | Myelocytes | | | LAB | | + +--------+ + + + | LYMPH % | 18 | 20 - 40 % | EXTERNAL | | | | | | LAB | | + +--------+ + + + | % Monocytes | 15 | 3 - 13 % | EXTERNAL | | | | | | LAB | | + +--------+ + + + | Absolute | 6.3 | 2.80 - 7.70 | EXTERNAL | | | Neutrophils | | 1000/mm3 | LAB | | + +--------+ + + + | Absolute | 1.8 | 1.20 - 3.30 | EXTERNAL | | | Lymphocytes | | 1000/mm3 | LAB | | + +--------+ + + + | Absolute | 1.46 | <=0.80 1000/mm3 | EXTERNAL | | | Monocytes | | | LAB | | + +--------+ + + + | PLT, | NORMAL | | EXTERNAL | | | External | | | LAB | | + +--------+ + + + | Platelet | NORMAL | NORMAL | EXTERNAL | | | Morphology | | | LAB | | + +--------+ + + + + + | Specimen | + + | | + + + +---------+ + + | Performing | Address | City/State/Zipcode | Phone Number | | Organization | | | | + +---------+ + + | EXTERNAL LAB | | | | + +---------+ + + PSA, Diagnostic (07/09/2016 8:11 AM PDT) + +-------+ + + + | Component | Value | Ref Range | Performed | Pathologist | | | | | At | Signature | + +-------+ + + + | PSA, Total | 0.82 | <=4.000 ng/mL | EXTERNAL | | [...] | + +---------+ + + T4, Free (07/09/2016 8:11 AM PDT) + +-------+ + + + | Component | Value | Ref Range | Performed | Pathologist | | | | | At | Signature | + +-------+ + + + | FT4 | 0.6 | 0.76 - 1.46 | EXTERNAL | [...] | | + +---------+ + + TSH (07/09/2016 8:11 AM PDT) + +-------+ + + + | Component | Value | Ref Range | Performed | Pathologist | | | | | At | Signature | + +-------+ + + + | TSH | 43.64 | 0.36 - 3.74 | EXTERNAL | [...] | | | + +---------+ + + Lipid Panel (07/09/2016 8:11 AM PDT) + +-------+ + + + | Component | Value | Ref Range | Performed | Pathologist | | | | | At | Signature | + +-------+ + + + | Cholesterol | 137 | <=200 mg/dL | EXTERNAL | | | , POC | | | LAB | | + +-------+ + + + | HDL | 37 | >=40 mg/dL | EXTERNAL | | | | | | LAB | | + +-------+ + + + | Triglycerid | 160 | 30 - 200 mg/dL | EXTERNAL | | | es | | | LAB | | + +-------+ + + + | Chol/HDL | 3.7 | <=5.1 RATIO | EXTERNAL | | | Ratio | | | LAB | | + +-------+ + + + | VLDL | 32 | 4 - 40 mg/dL | EXTERNAL | | | | | | LAB | | + +-------+ + + + | LDL-C | 68 | <=130 mg/dL | EXTERNAL | | [...] + +---------+ + + Microalbumin, Urine, Random (07/09/2016 8:11 AM PDT) + +-------+ + + + | Component | Value | Ref Range | Performed | Pathologist | | | | | At | Signature | + +-------+ + + + | Creatinine, | 132.1 | 20.0 - 370.0 | EXTERNAL | | | Urine | | mg/dL | LAB | | + +-------+ + + + | Microalbumi | 13.9 | <=30.0 mg/L | EXTERNAL | | | n Excretion | | | LAB | | | Rate | | | | | + +-------+ + + + | Microalb | 10.5 | <=17.0 mg/g | EXTERNAL | | [...] | | + +---------+ + + Hemoglobin A1C (07/09/2016 8:11 AM PDT) + +-------+ + + + | Component | Value | Ref Range | Performed | Pathologist | | | | | At | Signature | + +-------+ + + + | Hemoglobin | 5.6 | <=5.6 % | EXTERNAL | | | A1c | | | LAB | | + +-------+ + + + + + | Specimen | + + | | + + + +---------+ + + | Performing | Address | City/State/Zipcode | Phone Number | | Organization | | | | + +---------+ + + | EXTERNAL LAB | | | | + +---------+ + + Comprehensive Metabolic Panel (07/09/2016 8:11 AM PDT) + +-------+ + + + | Component | Value | Ref Range | Performed | Pathologist | | | | | At | Signature | + +-------+ + + + | Sodium | 142 | 132 - 143 | EXTERNAL | [...] +-------+ + + + | CO2 | 30 | 23 - 34 mmol/L | EXTERNAL [...] +-------+ + + + | Glucose | 87 | 70 - 110 mg/dL | EXTERNAL | | | | | | LAB | | + +-------+ + + + | BUN, Bld | 23 | 5 - 26 mg/dL | EXTERNAL | | | | | | LAB | | + +-------+ + + + | Creatinine | 1.17 | 0.70 - 1.40 | EXTERNAL | | | | | mg/dL | LAB | | + +-------+ + + + | BUN/Creatin | 19.7 | 7.0 - 24.0 | EXTERNAL | [...] +-------+ + + + | Protein, | 8.4 | 6.6 - 8.5 g/dL | EXTERNAL | | | Total | | | LAB | | + +-------+ + + + | Albumin | 4.1 | 3.0 - 4.5 g/dL | EXTERNAL | | | | | | LAB | | + +-------+ + + + | Alkaline | 89 | 46 - 116 U/L | EXTERNAL | | | Phosphatase | | | LAB | | + +-------+ + + + | ALT, | 22 | 16 - 63 U/L | EXTERNAL [...]
--- OUTSIDE RECORDS SUMMARY | ~2019-02-17 | XMS | Encounter Summary ---
Demographics + + + | Address | [address] | | | [place] [address] | + + + | Home Phone [...] Team Providers + +------+ + | Care Plc Engineer Name | Role | Phone | [...] | | | [address] [place], | [facility], [place] | | | | | [place] [address] | [address] | | | | | [phone] | [phone] | | | | | | | [...] [place] | | | | | | [address] | | | | | | [phone] | | | | | | | | +--------+---------+ + + + | 02/26/ | Office | Urology | Lillie Fowler | | | 2018 | Visit | | [address]IE Lopez [address] | | | | | | [address] | | | | | | [place] | | | | | | [address] | | | | | | [phone] | | | | | | | | +--------+---------+ + + + | 03/16/ | Office | Neurology | Theresa, | | | 2018 | Visit | | [address] | | | | | | [address] [place], | | | | | | [place] [address] | | | | | | [phone] | | | | | | | | +--------+---------+ + + + | 04/12/ | Office | Primary Care | Massimo Ramos | | | 2019 | Visit | | MD Fer [address] | | | | | | [place] | | | | | | [address] | | | | | | | | +--------+---------+ + + + | 10/03/ | Office | Neurology | Fabián Carias MD | | | 2019 | Visit | | [address] | | | | | | [place] | | | | | | [address] | | | | | | | [...] | | | care | | | Pharmaceutical Laboratory Technician-C | | | | | | [...] | | | care | | | Pharmaceutical Laboratory Technician-C | | | | | | [...] | | | care | | | Pharmaceutical Laboratory Technician-C | | | | | | [...] | | | care | | | Pharmaceutical Laboratory Technician-C | | | | | | | linical | + +--------+ +---+-----+ + + + | Note: Pt will | | check CBG's daily x1 | | Pt will take Lantis as | | prescribed | + + documented as of this encounter Visit Diagnoses Not on filedocumented in this encounter"
--- OUTSIDE RECORDS SUMMARY | ~2019-02-17 | XMS | Encounter Summary ---
Demographics + + + | Address | [address] | | | [place] [address] | + + + | Home Phone [...] Team Providers + +------+ + | Care Intel Recruiter Name | Role | Phone | + [...] unspecified back | | | | [place] [address] | | pain laterality | | | | [phone] | | (Primary Dx); Sprain | | [...] written, pt stated understanding. Pt ambulated to [facility] difficulty or assistance. Electronically signed by: Cara [...] [place] | | | | | | [address] | | | | | | [phone] | | | | | | | | +--------+---------+ + + + | 02/26/ | Office | Urology | Lillie Fowler | | | 2018 | Visit | | [address] | | | | | | [address] [place] | | | | | | [place], [place] | | | | | | [address] | | | | | | [phone] | | | | | | | | +--------+---------+ + + + | 03/16/ | Office | Neurology | Theresa, | | | 2018 | Visit | | [address] | | | | | | [address] [place], | | | | | | [place] [address] | | | | | | [phone] | | | | | | | | +--------+---------+ + + + | 04/12/ | Office | Primary Care | Massimo Ramos | | | 2019 | Visit | | MD Fer [address] | | | | | | [address] [place], [place] | | | | | | [address] | | | | | | | | +--------+---------+ + + + | 10/03/ | Office | Neurology | Fabián Carias MD | | | 2019 | Visit | | [address] | | | | | | [place], [place] | | | | | | [address] | | | | | | | [...] | | | care | | | Associate Professor Of Biostatistics-C | | | | | | | [...] | | | care | | | Associate Professor Of Biostatistics-C | | | | | | | [...] | | | care | | | Associate Professor Of Biostatistics-C | | | | | | | [...] | | | care | | | Associate Professor Of Biostatistics-C | | | | | | | [...] 11:27 | | | | | ONCE, [facility] 12/03/18 at 1145, For 1 | [...] | | | uteal-Ri | | ONCE, [facility] 12/03/18 at 1130, For 1 | [...] | | | ) | | ONCE, [facility] 12/03/18 at 1145, For 1 | [...]
--- OUTSIDE RECORDS SUMMARY | ~2019-02-17 | XMS | Encounter Summary ---
Demographics + + + | Address | [address] | | | [place] [address] | + + + | Home Phone | | + + + | Preferred Language | Unknown | + + + | Marital Status | | + + + | Temple Affiliation | 1025 | + + + | Race | Unknown | + + + | Ethnic Group | Unknown | + + + Author + + + | Author | [facility] | | | and [place] | + + + | Organization | [facility] | | [...] Team Providers + +------+ + | Care Gun Sealing 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 Name | Role | Phone | + +------+ + | Ryan Gutiérrez MD | PCP | | + +------+ + Encounter Details +--------+ + + + + | Date | Type | Department | Care Team | Description | +--------+ + + + + | 08/03/ | Hospital | [facility] | Clay Ujan | | | 2016 | Encounter | [facility] | MD [address] | | | | | C[address] | [facility] | | | | | [address] [place], [place] | [place] [address] | | | | | [address] | [phone] | | | | | [phone] | | | +--------+ + + + [...] [place] | | | | | | [address] | | | | | | [phone] | | | | | | | | +--------+---------+ + + + | 02/26/ | Office | Urology | Lillie Fowler | | | 2018 | Visit | | [address]IE [address] | | | | | | [address] | | | | | | [place] | | | | | | [address] | | | | | | [phone] | | | | | | | | +--------+---------+ + + + | 03/16/ | Office | Neurology | Theresa, | | | 2018 | Visit | | [address] | | | | | | [address] [place], | | | | | | [place] [address] | | | | | | [phone] | | | | | | | | +--------+---------+ + + + | 04/12/ | Office | Primary Care | Massimo Ramos | | | 2019 | Visit | | MD Fer [address] | | | | | | [place] | | | | | | [address] | | | | | | | | +--------+---------+ + + + | 10/03/ | Office | Neurology | Fabián Carias MD | | | 2019 | Visit | | [address] | | | | | | [place] | | | | | | [address] | | | | | | | [...] | | | care | | | Performance Test Consultant-C | | | | | | | [...] | | | care | | | Performance Test Consultant-C | | | | | | | [...] | | | care | | | Performance Test Consultant-C | | | | | | | [...] | | | care | | | Performance Test Consultant-C | | | | | | | linical | + +--------+ +---+-----+ + + + | Note: Pt will | | check CBG's daily x1 | | Pt will take Lantis as | | prescribed | + + documented as of this encounter Visit Diagnoses Not on filedocumented in this encounter"
--- OUTSIDE RECORDS SUMMARY | ~2019-02-17 | XMS | Encounter Summary ---
Demographics + + + | Address | [address] | | | [place] [address] | + + + | Home Phone [...] Team Providers + +------+ + | Care Tear Down Man Name | Role | Phone | [...] | | [place], [place] | [place] [address] | Hyperglycemia | | 2019 | | [address] | [phone] | | | | | [phone] | | | | | | | Kim Mary, | | | | | | MD [address] | | | | | | [place] [address] | | | | | | [phone] | | | | | | | | | | | | Esteban Calvillo, | | | | | | MD [address] | | | | | | [place] [address] | | | | | | [phone] | | | | | | | | | | | | Faizan Wesley, | | | | | | MD [address] | | | | | | [place] [address] | | | | | | [phone] | | | | | | | [...] nonseasonal allergic rhinitis due to pollen 03/07/2017 [facility] current use of aspirin 03/07/2017 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, left 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 See H&P. In the emergency room the patient was noted to be hyperglycemic with m ild acute kidney injury. Admitting physician noted that the patient had been noncompliant recently with his insulin. Infectious workup was negative. He was admitted to medical surg [facility] floor and restarted on his long-acting insulin [...] high density subpleural nodular foci are present health sciences program coordinator iorly in the lower lobes, and involve [...] Follow-Up Plans: Horacio Silvestre, [address] [place] [address] In 1 week review glucose numbers and adjust as needed Fabián Carias MD [address] [facility] , [facility] [place] [address] dementia work-up Electronically signed by: Faizan Wesley 08/25/2018 9:47 CC [facility] Time spent discharging this patient: <30 [...] to you, start slow and steady. Begin [id number] of activity each day. Then work up [...] provider to learn more. Date Last Reviewed: 09/06/201519992898-9666 [employer]. [address] [place] [address]. All righ ts reserved. This information is [...] extreme tiredness, and crying. Date Last Reviewed: 10/06/201519991557-6030 [facility]. [address] [place] [address], [place] [address]. All righ ts reserved. This information is [...] resources below can help you learn more: [place] [facility] [id number].diabetes.org [facility] Ndyqkwosodpkp719-330-1774wnd.lighthouse.org National Eye [id number] www.nei.nih.gov Hormone Health [id number] [email or web address].[email or web address] Date Last Reviewed: 08/06/201519990937-3259 [employer]. [address] [place] [address], [place] [address]. All righ ts reserved. This information is [...] signed by: Esteban Calvillo 08/24/2018 8:57 [facility] Portions of this chart may have [...] fairly reliable historian -medication list faxed from [facility] Major discrepancies noted: Patient also takes HCTZ 25mg once qam, levothyroxine 75mcg qam, and losartan 50mg qam. Patient does not take Miralax, fluticasone, nor does he use humalog. Patient doses insulin glargine at 35units qam. Patient has no history of pneumonia vaccine, but is interested in receiving if eligible. Henok rogers should receive PCV13 per protocol. Patient prefers to use [facility] here in [place] but [facility] [place] for [facility] medication list. Electronically [...] [place] | | | | | | [address] | | | | | | [phone] | | | | | | | | +--------+---------+ + + + | 02/26/ | Office | Urology | Lillie Fowler | | | 2018 | Visit | | LILLIE Lopez [address] | | | | | | [address] | | | | | | [place] | | | | | | [address] | | | | | | [phone] | | | | | | | | +--------+---------+ + + + | 03/16/ | Office | Neurology | Theresa, | | | 2018 | Visit | | SHONDA Mckinney [address] | | | | [address] [place], | | | | | | [place] [address] | | | | | | [phone] | | | | | | | | +--------+---------+ + + + | 04/12/ | Office | Primary Care | Massimo Ramos | | | 2019 | Visit | | MD Fer [address] | | | | | | [address] [place] | | | | | | [address] | | | | | | | | +--------+---------+ + + + | 10/03/ | Office | Neurology | Fabián Carias MD | | | 2019 | Visit | | [address] | | | | | | [place] | | | | | | [address] | | | | | | | | +--------+---------+ + + + + +------+--------+ + + | Name | Type | Priori | Associated Diagnoses | Date/Time | | | | ty | | | + +------+--------+ + + | ED INFORMATION | RBIT | Routin | | 08/23/2018 8:23 PM [...] | | | care | | | Boarding Mother-C | | | | | | | [...] | | | care | | | Boarding Mother-C | | | | | | | [...] | | | care | | | Boarding Mother-C | | | | | | | [...] | | | care | | | Boarding Mother-C | | | | | | | [...] J?MRN: | | | | | | [id number] | | | [id number] | | | riteri | | | [...] | | | [place] | | | Inspector Poising | | | al | | | [...] | | | [place] | | | Inspector Poising | | | al | | | [...] | | | [place] | | | Inspector Poising | | | al | | | [...] | | | [place] | | | Inspector Poising | | | al | | | [...] | | | [id number] | | | [id number] | | | [id number] | | | [...] + + | [facility] | [address] | [place] [address] | [phone] | | [facility] | | | [...] | mL/min/1.73m2 | [facility] | [facility] | | | [...] + + | [facility] | [address] | [place] [address] | [phone] | | [facility] | | | [...] + + | [place] [facility] | [address] | [place] [address] | [phone] | | [facility] | | | [...] + + | [facility] | [address] | [place] [address] | [phone] | | [facility] | | | [...] + + | [facility] | [address] | [place] [address] | [phone] | | [facility]ITAL [facility] | | | [...] + + | [facility] | [address] | [place] [address] | [phone] | | [facility] | | | [...] + + | [facility] | [address] | [place] [address] | [phone] | | [facility] | | | [...] + + | [facility] | [address] | [place] [address] | [phone] | | [facility] | | | [...] | mL/min/1.73m2 | [facility] | | [facility] | | | [...] + + | [facility] [facility] | [address] | [place] [address] | [phone] | | [facility] | | | [...] + + | [facility] | [address] | [place] [address] | [phone] | | [facility]ITAL [facility] | | | [...] + + | [place] [facility] | [address] | [place] [address] | [phone] | | [facility]ITAL [facility] | | | [...] + + | [facility] | [address] | [place] [address] | [phone] | | [facility] | | | [...] | mL/min/1.73m2 | [facility] | [facility] | | [facility] | | | [...] | 23.0 | 7.0 - 24.0 | [place] | [...] + + | [facility] | [address] | [place] [address] | [phone] | | [facility] | | | [...] - 1.030 | [place] | | | [place] | | | [facility] | | | [...] + + | [facility] | [address] | [place] [address] | [phone] | | [facility]ITAL [facility] | | | | + + + + + ECG 12 lead (08/23/2018 8:43 PM PDT) + + | Specimen | + + | | + + + + + | Narrative | Performed At | + + + | Heart Rate: 83 | [facility] | | bpmQRS Interval: 88 msQT Interval: 344 msQTC Interval: 405 msP [place]: | TRACEMASTER | | 3 degQRS [place]: -25 degT Wave [place]: 7 degP-R Interval: 180 msec- | | | OTHERWISE NORMAL ECG -SINUS RHYTHM [Now Present]BORDERLINE LEFT AXIS | | | DEVIATION [Remains]EARLY PRECORDIAL R/S TRANSITION [Now | | | Present]SIGNIFICANT RHYTHM CHANGES[Now Absent] SINUS TACHYCARDIA | | |T Wave [place]: 7 deg | | |P-R Interval: 180 [...] + + | [facility] | [address] | [place] [address] | [phone] | | [facility]ITAL [facility] | | | [...] + + | [facility] | [address] | [place] [address] | [phone] | | [facility]ITAL [facility] | | | [...] | cutoff point for the diagnosis of [place] is 0.8 ng/mL for the Troponin I | | | method. | | + + + + + + + + | Performing | Address | City/State/Zipcode | Phone Number | | Organization | | | | + + + + + | [facility] | [address] | [place] [address] | [phone] | | [facility] | | | [...] | mL/min/1.73m2 | [facility] | | | [facility] | RATE,ESTIMATED | | [facility] | | | | mL/min/1.85v6Otsc than | | LABORATORY | | | [...] + + | [facility] | [address] | [place] [address] | [phone] | | HOS[facility]ITAL [facility] | | | [...] + + | [facility] | [address] | [place] [address] | [phone] | | [facility]ITAL [facility] | | | [...] | | | | | | | [id number] Use NIGHT DOSE for | | | | | | | doses scheduled: HS, 3AM, | | | | | | | Nighttime 9370-6570 If the BG is | | | [...] | | | Left | | Intramuscular, WELL FLOW OPERATOR, Starting | | PM PDT | | [...]
--- OUTSIDE RECORDS SUMMARY | ~2019-02-17 | XMS | Encounter Summary ---
Demographics + + + | Address | [address] | | | [place] [address] | + + + | Home Phone | | + + + | Preferred Language | Unknown | + + + | Marital Status | | + + + | Denominational Affiliation | 1025 | + + + | Race | Unknown | + + + | Ethnic Group | Unknown | + + + Author + + + | Author | [facility] | | | and [place] | + + + | Organization | [facility] | | [...] Team Providers + +------+ + | Care Automobile Service Writer Name | Role | Phone | + +------+ + | Horacio Silvestre DO | PCP | | + +------+ + Reason for Visit + + + | Reason | Comments | + + + | Foot Problem | R Heel Fissure | + + + Evaluate & Treat (Routine) +--------+ + + + + + | Status | Reason | Specialty | Diagnoses / | Referred By | Referred To | | | | | Procedures | Contact | Contact | +--------+ + + + + + | Closed | Specialty | Podiatry | Diagnoses | [facility], | [facility] | | | Services | | Fissure in | Faraz Addison DNP | Podiatry [address] | | | Required | | skin of foot | [address] | | | | | Fungal | [address] [place] | [place] | | | | | infection of | [place] | | | | | toenail | [address] | [address] | | | | | Procedures | Phone: | Phone: | | | | | FOOT ISSUES | [phone] | [phone] | | | | | | Fax: | Fax: | | | | | | [phone] | [phone] | +--------+ + + + + + Encounter Details +--------+---------+ + + + | Date | Type | Department | Care Team | Description | +--------+---------+ + + + | 04/20/ | Office | [facility] | Nessa Mathur DPM | Fissure in skin of | | 2019 | Visit | HOSPITAL [facility] | [address] [place] | foot (Primary Dx); | | | | [address] | [place], [place] | Hyperkeratosis of | | | | [place], [place] | [address] | sole | | | | [address] | | | | | | [phone] | | | +--------+---------+ + + + [...] + + + | Blood Pressure | 142/90 | 04/20/2018 1:40 PM | | | | | PST | | + + + + + | Pulse | 84 | 04/20/2018 1:40 PM | | | | | PST | | + + + + + | Temperature | - | - | | + + + + + | Respiratory Rate | - | - | | + + + + + | Oxygen Saturation | 96% | 04/20/2018 1:40 PM | | | | | PST | | + + + + + | Inhaled Oxygen | - | - | | | Concentration | | | | + + + + + | Weight | 93.4 kg (206 lb) | 04/20/2018 1:40 PM | | | | | PST | | + + + + + | Height | 167.6 cm (5' 6") | 04/20/2018 1:40 PM | | | | | PST | | + + + + + | Body Mass Index | 33.25 | 04/20/2018 1:40 PM | | | | | PST [...] this encounter Progress Nessa Ledesma DPM - 04/20/2018 1:30 PM PST [facility] Note Patient Name: Geraldo Mcfadden | Age: 77 y.o. | : 1940 | Medical Record Number:[id number] | Author: Nessa Mathur DPM | Date of Encounter: 02/19/2018 Chief complaint Chief Complaint Patient presents with Foot Problem R Heel Fissure History of Present Illness Geraldo Mcfadden is a 77 y.o. diabetic male that presents today with his For follow- up of deep heel cracks. Patient states he's been using the urea cream and a pumice stone on almost a daily basis and he's noted great improvement and the painful heel fissures that he once had. He no longer has pain when he walks and is very pleased treatment course. Medications Current Outpatient Prescriptions on File Prior [...] prior to visit. Allergies Zolpidem Vitals BP 142/90 | Pulse 84 | Resp Temp | Wt 93.4 kg (206 lb) | BMI Body mass index is 33.25 kg/m. ROS Patient denies any visit problem associated neurologic and vascular system symptoms of numb ness, tingling or weakness during this history today. Imaging/Labs/Special Study Results Visit problem associated images and findings reviewed by me today with the patient include: No results found. Physical Exam GENERAL: Pt is a well-nourishedmale in NAD and A&Ox3. VASCULAR:Dorsalis pedis pulses [...] to bilateral feet and ankles. NEUROLOGICAL EXAM: Epicritic sensation including sharp-dull, light touch, vibration (128 M Hz tuning fork) and protective threshold (10.0 gram monofilament) are diminished to the leve l of the forefoot bilateral. MSK: 5/5 muscle strength for all prime movers of KATELYN LE. Normal muscle mass appreciated to KATELYN LE. Negative amputations bilateral. Negative pain on palpation to the right heel as c ompared to the discomfort at the last visit. DERM: Nail plates 1 through 5 are [...] xerosis and hyperkeratoses. Recommen d the patient Continue use a pumice stone regularly and use Vaseline petroleum jelly and isabel ly to his heels and apply a plastic [place] bag over that and his socks and sleep through t he night with that. Patient is only to apply the plastic bag to his heels and no other part of his foot. Written instructions were given to the patient. 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 current use of opiate analgesic Current use of beta marly Panlobular emphysema Atherosclerosis of [place] coronary artery of [place] heart without angina pectoris On potassium wasting diuretic therapy Primary osteoarthritis involving multiple joints Vitamin D deficiency disease Neck pain, chronic Chronic bilateral low back pain without sciatica History of bacterial pneumonia [facility] current use of non-steroidal anti-inflammatories (NSAID) Insomnia secondary to chronic pain Hx of transient ischemic attack (TIA) Past Medical History: Diagnosis Date Carpal tunnel [...] CATARACT REMOVAL; Surgeon: Tay Kern MD; Location: [facility] Azul Azul Takedown [...] and their vital signs recorded by my instructional assistant today, a s found in this chart note. Electronically signed by: Nessa Mathur DPM 02/19/2018 at 18:07 Note: Part of this report was transcribed using voice recognition software. Every effort wa s made to ensure accuracy. However, inadvertent computerized sales representative consultant errors may be pre sent. CC: DO [...] [place] | | | | | | [address] | | | | | | [phone] | | | | | | | | +--------+---------+ + + + | 02/26/ | Office | Urology | Lillie Fowler | | | 2019 | Visit | | LILLIE Lopez [address] | | | | | | [address] | | | | | | [place], [place] | | | | | | [address] | | | | | | [phone] | | | | | | | | +--------+---------+ + + + | 03/16/ | Office | Neurology | Theresa, | | | 2018 | Visit | | SHONDA Mckinney [address] [place], | | | | | | [place] [address] | | | | | | [phone] | | | | | | | | +--------+---------+ + + + | 04/12/ | Office | Primary Care | Massimo Ramoslulu | | | 2019 | Visit | | MD Fer [address] | | | | | | [place] | | | | | | [address] | | | | | | | | +--------+---------+ + + + | 10/03/ | Office | Neurology | Fabián Carias MD | | | 2019 | Visit | | [address] | | | | | | [place] | | | | | | [address] | | | | | | | [...] | | | care | | | Quantitative Analyst-C | | | | | | [...] | | | care | | | Quantitative Analyst-C | | | | | | [...] | | | care | | | Quantitative Analyst-C | | | | | | [...] | | | care | | | Quantitative Analyst-C | | | | | | [...]
--- OUTSIDE RECORDS SUMMARY | ~2019-02-17 | XMS | Encounter Summary ---
Demographics + + + | Address | [address] | | | [place] [address] | + + + | Home Phone [...] Team Providers + +------+ + | Care Bilingual Sales Assistant Name | Role | Phone [...] | | | [facility] | [place] [address] | Dx); Dementia | | | | [address] [place], | [phone] | without behavioral | | | | [place] [address] | | disturbance, | | | | [phone] | | unspecified dementia | | | [...] being t reated as an inpatient at [facility] due to Pneumonia and acute kidney injury. [...] had significantly impaired kidney function. On 07/24/18 al s Glomerular Filtration Rate (GFR) fell to [...] [place] | | | | | | [address] | | | | | | [phone] | | | | | | | | +--------+---------+ + + + | 02/26/ | Office | Urology | Lillie Fowler | | | 2019 | Visit | | LILLIE Lopez [address] | | | | | | [address] | | | | | | [place] | | | | | | [address] | | | | | | [phone] | | | | | | | | +--------+---------+ + + + | 03/16/ | Office | Neurology | Theresa, | | | 2018 | Visit | | Karyanne, DESIGN ASSISTANT [address] [place], | | | | | | [place] [address] | | | | | | [phone] | | | | | | | | +--------+---------+ + + + | 04/12/ | Office | Primary Care | Massimo Ramos | | | 2019 | Visit | | MD Fer [address] | | | | | | [place] | | | | | | [address] | | | | | | | | +--------+---------+ + + + | 10/03/ | Office | Neurology | Fabián Carias MD | | | 2019 | Visit | | [address] | | | | | | [place] | | | | | | [address] | | | | | | | [...] | | | care | | | Farmworker Diversified Crops-C | | | | | | | [...] | | | care | | | Farmworker Diversified Crops-C | | | | | | | [...] | | | care | | | Farmworker Diversified Crops-C | | | | | | | [...] | | | care | | | Farmworker Diversified Crops-C | | | | | | | [...]
--- OUTSIDE RECORDS SUMMARY | ~2019-02-17 | XMS | Encounter Summary ---
Demographics + + + | Address | [address] | | | [place] [address] | + + + | Home Phone | | + + + | Preferred Language | Unknown | + + + | Marital Status | | + + + | Faith Affiliation | 1025 | + + + | Race | Unknown | + + + | Ethnic Group | Unknown | + + + Author + + + | Author | [facility] | | | and [place] | + + + | Organization | [facility] | | | and [...] Team Providers + +------+ + | Care Hat Sizer Name | Role | Phone | + +------+ + | Horacio Silvestre DO | PCP | | + +------+ + Reason for Visit + + + | Reason | Comments | + + + | Medication Refill | Pt requesting a call back DIEUDONNE | + + + Encounter Details +--------+ + + + + | Date | Type | Department | Care Team | Description | +--------+ + + + + | 04/13/ | Telephone | [facility] | Horacio Silvestre, | Medication Refill | | 2019 | | [facility] | DO [address] [facility] | (Pt requesting a | | | | [facility] | [facility], [place] | call back DIEUDONNE) | | | | [address] [facility], | [address] | | | | | [place] [address] | [phone] | | | | | [phone] | | | +--------+ + + + [...] [place] | | | | | | [address] | | | | | | [phone] | | | | | | | | +--------+---------+ + + + | 02/26/ | Office | Urology | Lillie Fowler | | | 2018 | Visit | | LILLIE Lopez [address] | | | | | | [address] | | | | | | [place] | | | | | | [address] | | | | | | [phone] | | | | | | | | +--------+---------+ + + + | 03/16/ | Office | Neurology | Theresa, | | | 2018 | Visit | | SHONDA Mckinney [address] | [address] [place], | | | | | | [place] [address] | | | | | | [phone] | | | | | | | | +--------+---------+ + + + | 04/12/ | Office | Primary Care | Massimo Ramso | | | 2019 | Visit | | MD Fer [address] | | | | | | [place] | | | | | | [address] | | | | | | | | +--------+---------+ + + + | 10/03/ | Office | Neurology | Fabián Carias MD | | | 2019 | Visit | | [address] | | | | | | [place] | | | | | | [address] | | | | | | | [...] | | | care | | | Trader Fixed Income-C | | | | | | | [...] | | | care | | | Trader Fixed Income-C | | | | | | | [...] | | | care | | | Trader Fixed Income-C | | | | | | | [...] | | | care | | | Trader Fixed Income-C | | | | | | | linical | + +--------+ +---+-----+ + + + | Note: Pt will | | check CBG's daily x1 | | Pt will take Lantis as | | prescribed | + + documented as of this encounter Visit Diagnoses Not on filedocumented in this encounter"
--- OUTSIDE RECORDS SUMMARY | ~2019-02-17 | XMS | Encounter Summary ---
Demographics + + + | Address | [address] | | | [place] [address] | + + + | Home Phone [...] Team Providers + +------+ + | Care Focused Factory Manager Name | Role | Phone | + +------+ + | Horacio Silvestre DO | PCP | | + +------+ + Reason for Visit + + + | Reason | Comments | + + + | Shortness of Breath | | + + + Auth/Cert +--------+--------+ + + + + | Status | Reason | Specialty | Diagnoses / | Referred By | Referred To | | | | | Procedures | Contact | Contact | +--------+--------+ + + + + | | | | Diagnoses | | | | | | | Aspiration | | | | | | | pneumonia of | | | | | | | both lower | | | | | | | lobes, | | | | | | | unspecified | | | | | | | aspiration | | | | | | | pneumonia | | | | | | | type (HCC) | | | +--------+--------+ + + + + Encounter Details +--------+ + + + + | Date | Type | Department | Care Team | Description | +--------+ + + + + | 10/12/ | Hospital | [facility] | Shaheen Howard | Aspiration pneumonia | | 2019 - | Encounter | [facility] | MD [address] | of both lower | | | | [address] [place] | [address] [place] | lobes, unspecified | | 10/19/ | | [place], [place] | [place] [address] | aspiration pneumonia | | 2019 | | [address] | [phone] | type (HCC) (Primary | | | | [phone] | | Dx); Type 2 | | | | | Amado Chapin MD | diabetes mellitus | | | | | [address] [place] | with hyperglycemia, | | | | | [place] [address] | with long-term | | | | | [phone] | current use of | | | | | | insulin (HCC); | | | | | Kasey Salinas NP | Elevated lactic acid | | | | | [address] | level; Sepsis, due | | | | | [place] [address] | to unspecified | | | | | [phone] | organism (HCC) | | | | | | [...] + + + | Blood Pressure | 108/65 | 10/19/2018 12:00 PM | | | | | PDT | | + + + + + | Pulse | 95 | 10/19/2018 12:00 PM | | | | | PDT | | + + + + + | Temperature | 37.3 C (99.1 F) | 10/19/2018 12:00 PM | | | | | PDT | | + + + + + | Respiratory Rate | 20 | 10/19/2018 12:00 PM | | | | | PDT | | + + + + + | Oxygen Saturation | 93% | 10/19/2018 12:00 PM | | | | | PDT | | + + + + + | Inhaled Oxygen | - | - | | | Concentration | | | | + + + + + | Weight | 97.2 kg (214 lb 4.6 | 10/12/2018 8:24 PM | | | | oz) | PDT | | + + + + + | Height | 167.6 cm (5' 6") | 10/12/2018 8:24 PM | | | | | PDT | | + + + + + | Body Mass Index | 34.59 | 10/12/2018 8:24 PM | | | | | PDT [...] encounter Discharge Summaries Kasey Salinas NP - 10/19/2018 1:54 PM PDTFormatting of this note might be different fr om the original. MEDICAL HOSPITALIST DISCHARGE SUMMARY Pt. Name/Age/: Geraldo Mcfadden 78 y.o. 1940 Date of Admission: 10/12/2018 Date of Discharge: 10/19/2018 PCP: Horacio Silvestre Admitting Diagnosis: Pneumonia that failed on third-generation cephalosporin. Discharge Diagnosis: Principal Problem: Pneumonia due to infectious organism Active Problems: History of arterial ischemic stroke Gastroesophageal reflux disease without esophagitis Acquired hypothyroidism Type 2 diabetes mellitus with diabetic polyneuropathy, with long-term current use of insu gely Mediastinal lymphadenopathy Resolved Problems: COPD, mild Additional discharge history/co-morbidities: Active Ambulatory Problems Diagnosis [...] comorbidity, and body mass index (BMI) of 31.0 to 31.9 in adult 03/07/2017 Benign prostatic hyperplasia with incomplete bladder emptying 03/07/2017 Acquired diverticulosis of colon 03/07/2017 Chronic nonseasonal allergic rhinitis due to pollen 03/07/2017 group home current use of aspirin 03/07/2017 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, left Current use of beta marly 06/30/2017 Panlobular emphysema 08/08/2017 Atherosclerosis of [place] coronary artery of [place] heart without angina pectoris 08/08 On potassium wasting diuretic therapy 08/08/2017 Primary osteoarthritis involving multiple joints 09/30/2017 Vitamin D deficiency disease 09/30/2017 History of bacterial pneumonia 03/16/2018 Insomnia secondary to chronic pain 04/08/2018 Hx of transient ischemic attack (TIA) 04/10/2018 Coordination of complex care 06/01/2018 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 behavioral 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 09/01/2018 Mediastinal lymphadenopathy 10/03/2018 Resolved Ambulatory Problems Diagnosis Date Noted Essential hypertension 03/07/2017 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 06/27/2017 Community acquired pneumonia of left lower lobe of lung 08/15/2017 Neck pain, chronic 12/15/2017 Chronic bilateral low back pain without sciatica 12/15/2017 Generalized weakness 01/09/2018 Dehydration 01/09/2018 Chronic bilateral low back pain without sciatica 02/19/2018 Hypoxia 03/16/2018 Neutrophilic leukocytosis 03/17/2018 group home current use of non-steroidal anti-inflammatories (NSAID) [...] cystitis without hematuria 10/03/2018 Metabolic encephalopathy 10/03/2018 Uncontrolled type 1 diabetes mellitus with hyperglycemia 10/13/2018 Past Medical History: Diagnosis Date Carpal tunnel syndrome, bilateral 05/31/2013 DDD (degenerative disc disease), cervical 05/22/2013 Diabetes mellitus GERD (gastroesophageal reflux disease) Gout Hiatal hernia Hypertension Melanoma Melanoma 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, left Neck pain, chronic 05/22/2013 Neuropathy Paresthesias - both hands 05/22/2013 Thyroid disease Discharge Medication Reconciliation: Discharge Medications New Medications Details albuterol 2.5 mg/3 mL nebulizer solution Take 3 mLs by nebulization every 4 hours as needed for Shortness of Breath. albuterol-ipratropium 2.5-0.5 mg/3 mL Soln Take 3 mLs by nebulization every 6 hours. amoxicillin-clavulanate 875-125 mg per tablet Take 1 tablet by mouth 2 times daily for 4 days. Indications: Pneumonia aka: AUGMENTIN pantoprazole 40 mg tablet Replaces: omeprazole 20 mg capsule Take 1 tablet by mouth 2 times daily (before meals). aka: PROTONIX Changed Medications Details levothyroxine 100 mcg tablet Take 2.5 tablets by mouth every morning (before breakfast) for 90 days. What changed: medication strength how much to take additional instructions aka: SYNTHROID Unchanged Medications Details amLODIPine 10 MG tablet [...] aka: PLAVIX colchicine 0.6 mg tablet Take 0.6 mg by mouth Daily. For gout cyanocobalamin 1000 MCG tablet Take 1,000 mcg by mouth every morning. aka: VITAMIN B-[address] capsule Take 60 mg by mouth every morning. aka: CYMBALTA furosemide 20 mg tablet Take 20 mg by mouth every morning. aka: LASIX hydroCHLOROthiazide 25 mg tablet Take 25 mg by mouth every morning. insulin glargine 100 units/mL injection (vial) Inject 35 Units under the skin nightly. aka: LANTUS losartan 50 mg tablet Take 50 mg by mouth every morning. aka: COZAAR pregabalin 300 MG capsule Take 300 mg by mouth 2 times daily. aka: LYRICA tamsulosin 0.4 mg Caps Take 0.4 mg by mouth nightly. aka: FLOMAX testosterone 2 mg/[address] 1 patch onto the skin nightly. aka: ANDRODERM traZODone 100 mg tablet Take 100 mg by mouth nightly. aka: DESYREL urea 40 % Crea Apply 1 Application topically Daily as needed for Dry Skin. aka: CARMOL Discontinued Medications naproxen 500 mg tablet aka: NAPROSYN omeprazole 20 mg capsule aka: priLOSEC Replaced by: pantoprazole 40 mg tablet Clinical Resume: Geraldo Mcfadden is a 78 y.o. male with the above past medical history that presented to the Emergency Department on 10/12/2018 with increasing shortness of breath once he finished hi s course of Ceftin after being hospitalized for pneumonia. In the Emergency Department the patient was noted to be hypoxic and short of breath. CTA o f the chest showed new bibasilar infectious versus aspiration pneumonia. Mediastinal and hi lar lymphadenopathy mildly improved. Left basilar juxtapleural nodule of concern on previou s exam is obscured by basilar pneumonia. Aerated fluid or debris noted within the mid esoph chacorta. White blood cell count was noted to be mildly elevated at 12 with 8% bands. Lactate was elevated at 3.4. Troponin negative. Urine negative for acute infection. Blood culture s were obtained 2 in the patient was started on IV Zosyn. The patient was admitted to the medical surgical floor on IV Zosyn. Speech therapy evaluat ed the patient and the patient showed no evidence of aspiration at his bedside swallow study . Video swallow study was obtained and showed mild irregularity of the distal esophagus wit h outpatient endoscopy recommended to further evaluate. Esophageal dysmotility noted in the mid and distal esophagus. Mild spontaneous gastro-esophageal reflux. A TSH was obtained a nd was elevated at 34 with a T4 of 0.4. The patient and his both reported that the stefanie avitia takes his levothyroxine every morning on an empty stomach at least 30 minutes to 1 hour before he eats. He has been taking 225 g daily. His levothyroxine was increased to 250 g daily. A gastric emptying study was obtained to rule out gastroparesis in the setting o f diabetes. Gastric emptying study was normal. The patient gradually improved on IV Zosyn and was transitioned to oral Augmentin. He cont inues to per improved daily. Physical therapy evaluated the patient and recommended home he alth. He has remained afebrile. Blood cultures have remained negative to date. Plan to discharge home today with instructions to follow-up his PCP in 1 week. He is to fo llow-up with Dr. Franklin regarding his mediastinal lymphadenopathy. Dr. Franklin's offic e will call him to make an appointment. He is to continue Augmentin 875 mg by mouth twice a day to complete a total of a 10 day course for his pneumonia. His levothyroxine was increa sed to 250 g daily due to a TSH of 34 on admission. He will need a follow-up TSH through his PCPs office in 6 weeks. He has had persistent GERD on omeprazole with evidence of acid reflux noted on his video swallow study. He was changed to Protonix 40 mg by mouth twice a day with significant improvement of his acid reflux. Prescription to continue this for the next 30 days was provided. Recommend he decrease the dose after 30 days to 40 mg daily. He was educated to sit up for all meals. He is to sit up after meals for at least 30 minutes to 1 hour to prevent reflux. He continues to require oxygen. Home oxygen ordered through [employer]. Recommend PCP continue to monitor this is likely he will be able to come off of the o xygen once he has recovered from the pneumonia. Home health ordered for physical therapy an d nursing. Nebulizer machine as well as duo nebs and albuterol nebs ordered. CT scan on admission showed improved mediastinal lymphadenopathy. Unable to visualize the left lowe r lobe nodule. Recommend follow-up CT once his pneumonia has cleared to evaluate his lympha denopathy. He will need follow up endoscopy to further evaluate esophageal abnormality noted on video swallow study in setting of chronic history of GERD. Recommended follow up labs/imaging/tests: TSH in 6 weeks. Pending inpatient studies at time of discharge: None Disposition: Home Follow-Up Plans: [facility] [address] [facility] [id number] Horacio Silvestre DO [address] [facility] [id number] In 1 week Hospital follow up Physical Examination: General: Awake, alert, upright in chair Cardiovascular: RRR, audible s1 and s2 Respiratory: Diminished to bases bilaterally Abdomen: Round, soft, non-tender to palpation Extremities: 1+ pitting edema to bilateral lower extremities up to knees Skin: Intact Neurological: A&O x3, moving all [...] small parapneumonic effusion. Dictated by: Nestor Alba Xr Chest Pa And Lateral Result Date: 09/24/2018 EXAMINATION: XR CHEST PA AND LATERAL HISTORY: fatigue, Cough, and lower extremity edema. Co ncern for fluid overload. COMPARISON STUDY: August 23, 2018 FINDINGS: The lungs are mildly hypo ventilated. There is mild vascular indistinctness. Cephalization of vessels is present at the apices. No pleural effusion. No pneumothorax. Heart size is upper limits of normal. No acute osseous process. IMPRESSION: Hypoventilation Increased fluid status compared to August 23, 2018. No pulmonary edema. Dictated by: Massimo Alba 12 :[address] Head Wo Contrast Result Date: 10/02/2018 EXAMINATION: CT HEAD WO CONTRAST HISTORY: ALTERED MENTAL STATUS; WEAKNESS COMPARISON STUDY: July 24, 2018, July 15, 2018 TECHNIQUE: 5 mm axial slices were acquired through the brain without contrast. DOSE REPORT: CTDIvol: 40.4 mGy. DLP: 717 mGy-cm. Automated exposure cont rol was utilized. FINDINGS: No evidence of an acute intracranial hemorrhage, mass lesion, or midline shift. The reinoso-white matter interface is intact. Remote right cerebellar lacunar i nfarct. The ventricles are symmetric. Sulci are mildly prominent at the vertex. Basilar cist erns are patent. Patchy periventricular white matter hypodensities are again noted. Atherosc lerosis of the cavernous internal carotid arteries. Bilateral maxillary sinus mild mucosal t hickening. Left maxillary sinus has a more globular appearing hypodensity compared to previ ous exams.. Mastoid air cells are clear. No fracture. IMPRESSION: 1. No acute intracranial process. 2. Remote right cerebellar lacunar infarct. 3 . Mild white matter disease, likely related to chronic small vessel ischemia. 4. Mild age re lated volume loss. 5. More focal left maxillary sinus mucosal thickening versus mucous reten tion cyst. Dictated by: Massimo Alba Electronically Signed by: Massimo Alba on 10:32 PM Nm Gastric Emptying Result Date: 10/16/2018 EXAMINATION: [...] No evidence of aspiration. Dictated by: Massimo Hutchinson am Xr Chest Ap Portable Result Date: 09/30/2018 EXAMINATION: XR CHEST AP PORTABLE HISTORY: LEG SWELLING COMPARISON STUDY: Chest radiograph 09/24/2018. Chest radiograph 08/23/2018. CT chest 05/27/2018. FINDINGS: Prominence of the infrahilar region on the right noted which appears similar to the 09/24/2018 study. The fin ding is in apparent on the 08/23/2017 study. No adenopathy or mass was seen in this region on the prior CT study. Heart size normal. Atherosclerosis coronary arteries present best ap preciated on prior CT study. No distinct Laquita B line formation. No pleural effusion or lo bar consolidation. . IMPRESSION: 1. No definite acute finding. 2. Atherosclerosis coronary arteries. 3. Prominen ce of the right donya which may relate to the overlap of normal anatomy. Potentially hilar a denopathy could result in similar appearance. Follow-up to demonstrate resolution recommend ed. Dictated by: Troy Lawrence Ct Angiogram Pulmonary W Contrast Result Date: [...] Dictated b y: Massimo Alba Ct Angiogram Pulmonary Result Date: 09/30/2018 EXAMINATION: CT ANGIOGRAM PULMONARY HISTORY: LEG SWELLING COMPARISON STUDY: CT chest 2017. CT chest 12/25/2016. TECHNIQUE: 5 mm axial slices were acquired through the lungs dur ing an arterial phase of contrast. Multiplanar MIP reconstructions were performed. There w as no post contrast reaction. DOSE REPORT: CTDIvol: 4.4 - 22.2 mGy. DLP: 633 mGy-cm. Automa rosemarie exposure control was utilized. FINDINGS: The bolus of contrast is adequate. No pulmonary artery filling defect. Interval development of prominent mediastinal and hilar adenopathy c ompared to the 03/16/2018 CT chest. Largest lymph node present in the subcarinal region wit h short axis diameter of 2.5 cm. Heart size within normal limits. Atherosclerosis coronary arteries. Minimal pericardial effusion. No distinct interlobular septal thickening. Periph eral subpleural reticular opacities are redemonstrated which appear similar with somewhat ap ical basilar gradient. Mild bronchiectasis right lower lobe and left lower lobe. At the lef t lower lobe on image 102 a spiculated noncalcified 15 mm nodule is present. This finding w as not evident on the 2018 study. At the lateral basal left lower lobe a a juxtapleural nonc alcified 7 mm nodule is noted. This finding was not present previously. Below the diaphragm no visualized adenopathy. Unremarkable appearing mesenteric and retroperitoneal lymph node s present. Reflux of contrast material within the inferior vena cava is present. No axillar y adenopathy. No acute bone finding. No lytic or blastic bone lesions. The bones appear di ffusely demineralized. IMPRESSION: 1. No pulmonary embolus, or lobar pneumonia. No distinct interstitial edema. 2 . Interval development of hilar and mediastinal adenopathy concerning for malignancy. Diffe rential includes lymphoma. 3. Interval development 2 lung nodules suspicious for malignancy at the left lower lobe. Differential includes lymphoma, metastatic disease, and primary tyrone g cancer. 4. Atherosclerosis coronary arteries. 5. No no adenopathy at the visualized upper abdomen, or axilla. 6. The bones appear diffusely demineralized. Dictated by: Troy Lawrence Xr Chest 2 Vws Result Date: 10/02/2018 EXAMINATION: XR CHEST 2 VIEWS HISTORY: cough COMPARISON STUDY: September 30, 2018, September 24, 2018 FINDINGS: The lungs are mildly hypoventilated. Fullness to the hilum and mediastinum consi stent with known adenopathy. Hazy lateral airspace opacity. Flattening of the hemidiaphrag m. Posterior left lower lobe mass is redemonstrated. No pleural effusion. No pneumothorax . Heart is mildly enlarged. No acute osseous process. IMPRESSION: Left lower lobe pneumonia. Hypoventilation. Left lower lobe mass. Hilar lymphad enopathy. Dictated by: Massimo Alba Microbiology Results (Last 14 Days by Collected Date with Culture/Sensitivity) Procedure Component Value Units Date/Time Culture, Blood [[id number]] Collected: 10/12/18 1320 Order Status: Completed Lab Status: Final result Updated: 10/17/18 1411 Specimen: Peripheral Blood Culture No growth after 5 days incubation. Culture, Blood [[id number]] Collected: 10/12/18 1305 Order Status: Completed Lab Status: Final result Updated: 10/17/18 1411 Specimen: Peripheral Blood Culture No growth after 5 days incubation. Time spent discharging this patient: 45 min Electronically Signed: CHANTEL Hillman 10/19/2018Electronically signed by Faizan Wesley MD at 9 7:52 AM PDTdocumented in this encounter Discharge Instructions Instructions Kaleigh Senior RN - 10/19/2018 Pneumonia (Adult) Pneumonia is an infection deep [...] not caused by coughing Date Last Reviewed: 04/07/[id number] [employer] [address] [place] [address], [place] [address]. All righ ts reserved. This information is not intended as a substitute for professional medical care. Always follow your healthcare professional's instructions. AttachmentsThe following attachments cannot be sent through Care Everywhere.COPD, What is ( [place])Chronic Lung Disease: Preventing Lung Infections ([place])Adult, Pneumonia ([place]) Oxygen, Using at Home ([place])Oxygen: Traveling with ([place])documented in this encounter Medications at Time of [...] | | Take 1 tablet by | 8 | 0 | 10/20/19 | | | amoxicillin-clavulan | mouth 2 times daily | tablet | | 19 | 9 | | ate (AUGMENTIN) | for 4 days. | | | | | | 875-125 mg per | Indications: | | | | | | tabletIndications: | Pneumonia | | | | | | Pneumonia [...] + + | furosemide (LASIX) | Take 20 mg by mouth | | 0 | | | | 20 mg tablet | every morning. | | [...] +---------+ + + | pantoprazole | Take 1 tablet by | 30 | 0 | 10/20/19 | | | (PROTONIX) 40 mg | mouth 2 times daily | tablet | | 19 | 9 | | tablet | (before meals). | | | | | + + [...] of this encounter Progress Notes Scott Caballero, Marketing Development Representative - 10/19/2018 4:43 PM PDT PHARMACY SERVICES: DISCHARGE MEDICATION TEACHING Geraldo Mcfadden is a 78 y.o. male admitted on 10/12/18 for pneumonia and was discharged on 10/19/18. Discharge Medications New Medications Details albuterol 2.5 mg/3 mL nebulizer solution Take 3 mLs by nebulization every 4 hours as needed for Shortness of Breath. albuterol-ipratropium 2.5-0.5 mg/3 mL Soln Take 3 mLs by nebulization every 6 hours. amoxicillin-clavulanate 875-125 mg per tablet Take 1 tablet by mouth 2 times daily for 4 days. Indications: Pneumonia aka: AUGMENTIN pantoprazole 40 mg tablet Replaces: omeprazole 20 mg capsule Take 1 tablet by mouth 2 times daily (before meals). aka: PROTONIX Changed Medications Details levothyroxine 100 mcg tablet Take 2.5 tablets by mouth every morning (before breakfast) for 90 days. What changed: medication strength how much to take additional instructions aka: SYNTHROID Unchanged Medications Details amLODIPine 10 MG tablet [...] aka: PLAVIX colchicine 0.6 mg tablet Take 0.6 mg by mouth Daily. For gout cyanocobalamin 1000 MCG tablet Take 1,000 mcg by mouth every morning. aka: VITAMIN B-[address] capsule Take 60 mg by mouth every morning. aka: CYMBALTA furosemide 20 mg tablet Take 20 mg by mouth every morning. aka: LASIX hydroCHLOROthiazide 25 mg tablet Take 25 mg by mouth every morning. insulin glargine 100 units/mL injection (vial) Inject 35 Units under the skin nightly. aka: LANTUS losartan 50 mg tablet Take 50 mg by mouth every morning. aka: COZAAR pregabalin 300 MG capsule Take 300 mg by mouth 2 times daily. aka: LYRICA tamsulosin 0.4 mg Caps Take 0.4 mg by mouth nightly. aka: FLOMAX testosterone 2 mg/[address] 1 patch onto the skin nightly. aka: ANDRODERM traZODone 100 mg tablet Take 100 mg by mouth nightly. aka: DESYREL urea 40 % Crea Apply 1 Application topically Daily as needed for Dry Skin. aka: CARMOL Discontinued Medications naproxen 500 mg tablet aka: NAPROSYN omeprazole 20 mg capsule aka: priLOSEC Replaced by: pantoprazole 40 mg tablet Discharge counseling provided to Ed's family regarding the above new meds including dosing , administration, and potential side effects: -Albuterol nebs: q4h prn SOB; report need for more frequent use -Duoneb: scheduled q6h admin; stop use and call doc if breathing worsens -Augmentin: N/V/D/Const; take with food to minimize stomach upset -Levothyroxine: change in dose from [id number] to [id number]; may take [id number] as before until new meds [facility] -Pantoprazole: switched from omeprazole, similar profile Patient's family asked on Ed's behalf why the switch from omeprazole to protonix was made, to which I informed them of the change likely due to decreased absorption of his levothyrox ine. Ed's family was also told to stop his naproxen and omeprazole. Patient's family confir med understanding and state no additional questions at this time. Electronically signed by: Scott Caballero, Marketing Development Representative 10/19/2018 16:43Electronically sig tavares by Vivek Juares, PharmD at 10/19/2018 5:08 PM Emil, Beth Panda RN - 10/19/2018 5:12 AM Yolanda had a good night last night. VS stable; he complained of his chronic back wali n and was repositioned (he still had his lidocaine patch) and after this, he appeared to be comfortable. Ed slept throughout the night; his CBG did not require coverage. His lung soun ds were decreased throughout and he had 2+ edema in his lower extremities. Ed says he hopes to go home. Esteban Mccormick MD - 10/18/2018 12:39 PM PDT MEDICAL HOSPITALIST TEAM PROGRESS NOTE Name:Geraldo Mcfadden Hospital Day # 6 Reason for admission and continued stay: Geraldo Mcfadden is a 78 y.o. male hospitalized for Pneumonia due to infectious organism Assessment and Plan: Principal Problem: Pneumonia due to infectious organism Active Problems: Type 2 diabetes mellitus with diabetic polyneuropathy, with long-term current use of insu gely Mediastinal lymphadenopathy History of arterial ischemic stroke Gastroesophageal reflux disease without esophagitis Acquired hypothyroidism COPD, mild #1 community acquired pneumonia (recurrent). Significant improvement over the last 24 hour s. Continue antibiotics nebulizers and flutter valve use and mobilize as tolerated. #2 mediastinal lymphadenopathy. Significance remains unclear. Outpatient follow-up schedu led. #3 type II diabetes mellitus. Remains adequately controlled. Continue current regimen. #4 hypothyroidism. On increased dose of levothyroxine. Repeat TSH in 4-6 weeks. #5 gastroesophageal reflux disease. Stable. #6 anticipated days until discharge and disposition: Likely home in 1-2 days. Subjective/ROS: Feeling much better today. Breathing has improved significantly. Energy level has increased. Appetite has improved somewhat. No fevers or chills. No nausea, vomiting or diarrhea. No chest pain or palpitations. Objective: Most recent vital signs: BP 119/74 | Pulse 80 | Temp 36.7 C (98.1 F) (Oral) | Resp 20 | Ht 1.676 m (5' 6") | Wt 97.2 kg (214 lb 4.6 oz) | SpO2 90% | BMI 34.59 kg/m Vital sign ranges for last 24hrs: Input and output for last 24hrs: Temp: [36.6 C (97.88 F)-37.1 C (98.78 F)] 36.7 C (98.1 F) Pulse: [80-102] 80 Resp: [18-20] 20 BP: (113-139)/(55-74) 119/74 SpO2 Av.6 % Min: 77 % Max: 97 % Flow (L/min) Av.5 Min: 2 Max: 4 10/16 1901 - 10/18 0700 In: 2117 [P.O.:1967; I.V.:100] Out: 2900 [Urine:2900] Physical Examination: General: Alert and oriented 3. No apparent distress. Cardiovascular: Regular rate and rhythm. Respiratory: Improved air movement today. No wheezes appreciated. Abdomen: Benign. Extremities: Edema remains stable. Psychiatric: Normal mood, engaging affect. Physical Exam Last 8 glucose values: Recent Labs Lab 10/18/18 1154 10/18/18 0743 10/17/18205110/17/18 1650 10/17/18 1130 10/17/18 0722 10/16/18 2046 10/16/18 1628 10/15/18 0520 10/14/18 0535 10/13/18 0520 10/12/18 1714 10/12/18 1320 POCGLU 142* 121* 89 106 159* 114* 141* 212* < > -- < > -- < > -- < > -- -- GLU -- -- -- -- -- -- -- -- -- 99 -- 120* -- 283* -- 366* 469* < > = values in this interval not displayed. Labs/Studies: Recent Labs Lab 10/17/18 0655 10/16/18 0910 10/15/18 0520 10/14/18 0535 WBC 10.9* 11.9* 10.9* 11.2* HGB 11.1* 11.9* 11.2* 11.9* HCT 35.0* 36.6* 35.5* 37.8* PLT 146* 130* 156 175 Recent Labs Lab 10/15/18 0510/14/18 0535 10/13/18 0520 10/12/18 1714 10/12/18 1320 NA 139 142 140 -- 137 K 3.6 3.5 3.7 -- 3.7 CL 105 106 107 -- 102 CO2 31 28 32 -- 27 BUN 9 10 10 -- 15 CREA 0.96 1.12 0.98 -- 1.25 GLU 99 120* 283* 366* 469* MG -- 2.0 1.6* -- -- CALCIUM 8.2* 8.5 7.7* -- 8.5 BILITOT -- -- -- -- 0.6 AST -- -- -- -- 12 ALT -- -- -- -- 32 ALKPHOS -- -- -- -- 85 ALBUMIN -- -- -- -- 2.7* Electronically signed by: Esteban Calvillo 10/18/2018 12:39 CC [facility] Portions of this chart may have been created with voice recognition software. Occasional wo rd or "sound-alike" substitutions may have occurred due to the inherent limitation of voice recognition software. Read the chart carefully and recognize, using context, where these sub stitutions have occurred. Esteban Mccormick MD - 10/17/2018 3:00 PM PDT MEDICAL HOSPITALIST TEAM PROGRESS NOTE Name:Geraldo Mcfadden [facility] Day # 5 Reason for admission and continued stay: Geraldo Mcfadden is a 78 y.o. male hospitalized for Pneumonia due to infectious organism Assessment and Plan: Principal Problem: Pneumonia due to infectious organism Active Problems: Type 2 diabetes mellitus with diabetic polyneuropathy, with long-term current use of insu gely Mediastinal lymphadenopathy History of arterial ischemic stroke Gastroesophageal reflux disease without esophagitis Acquired hypothyroidism COPD, mild #1 pneumonia. Slow to improve on antibiotics and nebulizers. Continue current therapy. M obilize as tolerated. Encourage flutter valve use. Continue aggressive nebulizer regimen. Continue Augmentin. #2 mediastinal lymphadenopathy. Uncertain significance. Will need outpatient follow-up. #3 type II diabetes mellitus. Adequately controlled. Continue current regimen. #4 hypothyroidism. Likely some degree of sick euthyroid syndrome at play here as well. Co ntinue increased dose of levothyroxine. Plan to repeat TSH in 4-6 weeks. #5 gastroesophageal reflux disease. Stable on aggressive proton pump inhibitor therapy. #6 anticipated days until discharge and disposition: Likely home in 1-2 days. Subjective/ROS: Weak today. Frequent normally productive cough. No chest pain or palpitations. No fevers or chills. No nausea, vomiting, diarrhea or constipation. Eating well. Objective: Most recent vital signs: BP 129/80 | Pulse 88 | Temp 36.7 C (98.06 F) (Oral) | Resp 18 | Ht 1.676 m (5' 6") | Wt 97.2 kg (214 lb 4.6 oz) | SpO2 92% | BMI 34.59 kg/m Vital sign ranges for last 24hrs: Input and output for last 24hrs: Temp: [36.6 C (97.88 F)-37.1 C (98.78 F)] 36.7 C (98.06 F) Pulse: [79-91] 88 Resp: [16-18] 18 BP: (113-131)/(56-80) 129/80 SpO2 Av % Min: 82 % Max: 95 % Flow (L/min) Av Min: 2 Max: 2 10/15 1900 - 10/17 0700 In: 2180 [P.O.:1780; I.V.:100] Out: 950 [Urine:950] Physical Examination: General: Alert and oriented 3. Chronically ill appearing. Cardiovascular: Regular rate and rhythm. Respiratory: Dim at left base. Otherwise clear to auscultation. No wheezes. Abdomen: Benign Extremities: Edema unchanged. Neurological: Spontaneously moving all 4 extremities. Psychiatric: Normal mood, engaging affect. Physical Exam Last 8 glucose values: Recent Labs Lab 10/17/18 1130 10/17/18 0722 10/16/18204510/16/18 1628 10/16/18 1202 10/16/18 0741 10/15/18202610/15/18 1628 10/15/18 0520 10/14/18 0535 10/13/18 0520 10/12/18 1714 10/12/18 1320 POCGLU 159* 114* 141* 212* 139* 111* 141* 155* < > -- < > -- < > -- < > -- -- GLU -- -- -- -- -- -- -- -- -- 99 -- 120* -- 283* -- 366* 469* < > = values in this interval not displayed. Labs/Studies: Recent Labs Lab 10/17/18 0655 10/16/18 0910 10/15/18 0520 10/14/18 0535 WBC 10.9* 11.9* 10.9* 11.2* HGB 11.1* 11.9* 11.2* 11.9* HCT 35.0* 36.6* 35.5* 37.8* PLT 146* 130* 156 175 Recent Labs Lab 10/15/18 0520 10/14/18 0535 10/13/18 0520 10/12/18 1714 10/12/18 1320 NA 139 142 140 -- 137 K 3.6 3.5 3.7 -- 3.7 CL 105 106 107 -- 102 CO2 31 28 32 -- 27 BUN 9 10 10 -- 15 CREA 0.96 1.12 0.98 -- 1.25 GLU 99 120* 283* 366* 469* MG -- 2.0 1.6* -- -- CALCIUM 8.2* 8.5 7.7* -- 8.5 BILITOT -- -- -- -- 0.6 AST -- -- -- -- 12 ALT -- -- -- -- 32 ALKPHOS -- -- -- -- 85 ALBUMIN -- -- -- -- 2.7* Electronically signed by: Esteban Calvillo 10/17/2018 15:00 CC [facility] Portions of this chart may have been created with voice recognition software. Occasional wo rd or "sound-alike" substitutions may have occurred due to the inherent limitation of voice recognition software. Read the chart carefully and recognize, using context, where these sub stitutions have occurred. asey Salinas NP - 10/16/2018 6:44 PM PDT MEDICAL HOSPITALIST TEAM PROGRESS NOTE Name:Geraldo Mcfadden [facility] Day # 4 Assessment and Plan: Reason for admission and continued stay: Geraldo Mcfadden is a 78 y.o. male hospitalized for Pneumonia due to infectious organism Principal Problem: Pneumonia due to infectious organism Active Problems: History of arterial ischemic stroke Gastroesophageal reflux disease without esophagitis Acquired hypothyroidism Type 2 diabetes mellitus with diabetic polyneuropathy, with long-term current use of insu gely Mediastinal lymphadenopathy COPD, mild Resolved Problems: * No resolved hospital problems. * Pneumonia: Second hospitalization. Previous hospitalization discharge on Ceftin and sympto ms worsened once he completed his course. Some concern for aspiration based on CT findings of debris in the esophagus. Video swallow study negative for aspiration but did show acid r eflux and esophageal dysmotility. Gastric emptying study normal. Cough has improved. Gene ralized weakness improved. Blood cultures with no growth to date. Afebrile. DC IV Zosyn Start Augmentin 875 mg by mouth twice a day Continue scheduled and when necessary nebulizers Flutter Physical Therapy Mediastinal lymphadenopathy: Noted on previous CT. Current CT shows some improvement. Follow-up with oncology as previously scheduled as an outpatient GERD: Has been chronically on omeprazole but has complained of persistent acid reflux. [place]mes symptoms have resolved while on pantoprazole in the hospital. Continue Protonix 40 mg by mouth twice a day Up to chair for meals. Sit up for at least 30 minutes after meal in chair. Hypothyroid: TSH 34.6. Has not been adequately well followed as an outpatient. Taking lev othyroxine appropriately. Levothyroxine dose increased while inpatient to 250 g daily. Will need follow-up TSH as an outpatient in 6 weeks. DM type II: Stable Continue Lantus 18 units every afternoon Continue lispro 5 units with meals and low-dose SSI before meals and at bedtime H/O COPD: Mild. Stable H/O HFpEF: diuretics held on admission for concern of dehydration Restart Lasix 20 mg and HCTZ in am H/O TIA/CVA: Continue aspirin and Plavix Chronic back pain: Continue K pads when necessary Lidoderm patch Oxycodone every 4 hours when necessary AM Labs: cbc, ionized ca Anticipated days until discharge: 1-2 days. Orders have been placed for home health to [facility] patient as an outpatient when he is discharged. Subjective/ROS: States feeling much better today. Ambulated in the [place] with PT and felt strong. Cough im proving with minimal sputum. Denies chest pain, shortness breath, nausea, vomiting, diarrhe a. Back pain is improved. Objective: Most recent vital signs: BP 131/64 | Pulse 79 | Temp 36.6 C (97.9 F) (Oral) | Resp 16 | Ht 1.676 m (5' 6") | Wt 97.2 kg (214 lb 4.6 oz) | SpO2 94% | BMI 34.59 kg/m Vital sign ranges for last 24hrs: Input and output for last 24hrs: Temp: [36.6 C (97.88 F)-38.7 C (101.66 F)] 36.6 C (97.9 F) Pulse: [74-95] 79 Resp: [12-21] 16 BP: (116-148)/(61-81) 131/64 SpO2 Av.9 % Min: 86 % Max: 96 % Flow (L/min) Av Min: 1 Max: 3 10/14 1901 - 10/16 0700 In: 1495 [P.O.:1020] Out: 1075 [Urine:1075] Physical Examination: General: Awake, alert, upright in bed Cardiovascular: Regular rate and rhythm, audible S1-S2 Respiratory: Clear throughout bilaterally Abdomen: Round, soft, nontender to palpation Extremities: 1+ pitting edema to bilateral lower extremities up to mid thigh Skin: Intact Neurological: A and O 3, moving all extremities Psychiatric: Appropriate affect Last 8 glucose values: Recent Labs Lab 10/16/18 1628 10/16/18 1202 10/16/18 0741 10/15/18 2027 10/15/18 1628 10/15/18 1316 10/15/18 1138 10/15/18 0708 10/15/18 0520 10/14/18 0535 10/13/18 0520 10/12/18 1714 10/12/18 1320 POCGLU 212* 139* 111* 141* 155* 118* 149* 111* -- < > -- < > -- < > -- -- GLU -- -- -- -- -- -- -- -- 99 -- 120* -- 283* -- 366* 469* < > = values in this interval not displayed. Labs/Studies: Recent Labs Lab 10/16/18 0910 10/15/18 0510/14/18 0535 10/13/18 0520 WBC 11.9* 10.9* 11.2* 9.7 HGB 11.9* 11.2* 11.9* 11.0* HCT 36.6* 35.5* 37.8* 34.2* PLT 130* 156 175 171 Recent Labs Lab 10/15/18 0510/14/18 0535 10/13/18 0510/12/18 1714 10/12/18 1320 NA 139 142 140 -- 137 K 3.6 3.5 3.7 -- 3.7 CL 105 106 107 -- 102 CO2 31 28 32 -- 27 BUN 9 10 10 -- 15 CREA 0.96 1.12 0.98 -- 1.25 GLU 99 120* 283* 366* 469* MG -- 2.0 1.6* -- -- CALCIUM 8.2* 8.5 7.7* -- 8.5 BILITOT -- -- -- -- 0.6 AST -- -- -- -- 12 ALT -- -- -- -- 32 ALKPHOS -- -- -- -- 85 ALBUMIN -- -- -- -- 2.7* Pertinent micro results: Microbiology Results (Last 7) Date with Culture/Sensitivity) Procedure Component Value Units Date/Time Culture, Blood [[id number]] Collected: 10/12/18 1320 Order Status: Completed Lab Status: Preliminary result Updated: 10/16/18 1411 Specimen: Peripheral Blood Culture No growth: Monitored continually by instrument for 5 days Culture, Blood [[id number]] Collected: 10/12/18 1305 Order Status: Completed Lab Status: Preliminary result Updated: 10/16/18 141 Specimen: Peripheral Blood Culture No growth: Monitored continually by instrument for 5 days Nm Gastric Emptying Result Date: 10/16/2018 EXAMINATION: [...] Normal gastric emptying. Dictated by: Massimo Alba Electronically Signed: CHANTEL Hillman 10/16/2018 Portions of this chart may have been created with voice recognition software. Occasional wo rd or "sound-alike" substitutions may have occurred due to the inherent limitation of voice recognition software. Read the chart carefully and recognize, using context, where these sub stitutions have occurred. rad Kaseylyn Stoll NP - 10/15/2018 10:57 AM PDT MEDICAL HOSPITALIST TEAM PROGRESS NOTE Name:[facility]fadd[facility] Day # 3 Assessment and Plan: Reason for admission and continued stay: Geraldo Mcfadden is a 78 y.o. male hospitalized for Pneumonia due to infectious organism Principal Problem: Pneumonia due to infectious organism Active Problems: History of arterial ischemic stroke Gastroesophageal reflux disease without esophagitis Acquired hypothyroidism Type 2 diabetes mellitus with diabetic polyneuropathy, with long-term current use of insu gely Mediastinal lymphadenopathy COPD, mild Resolved Problems: * No resolved hospital problems. * Pneumonia: Second hospitalization. Failed on Ceftin. Concern for aspiration. Video swallow negative for aspiration. Acid reflux and esophageal motility noted. Some concern for gastrop aresis with history of DM. Plan for gastric emptying in am. A-febrile. WBC count mildly impr maia has bandemia today. Coughing up small amount of yellow/brown sputum. Blood cultures neg ative to date. Continue IV Zosyn for now. Nebs scheduled and prn Flutter Mediastinal Lymphadenopathy: showed some improvement on current chest CT. Follow up with oncology as previously recommended GERD: has been on omeprazole daily. Describes daily symptoms of acid reflux despite this. R eflux noted on video swallow. Protonix increased to bid. Up to chair for all meals. Sit up for at least 30 min after meal. Gastric emptying study to rule out gastroparesis. Hypothyroid: TSH 34.6. Has not been adequately followed up as outpatient. Reports taking ap propriately. Levothyroxine dose increased to 250 mcg daily. Follow up TSH as an outpatient in 6 weeks. DM2: stable Continue Lantus 18 units q pm Continue Lispro 5 units with meals and low dose SSI ac and hs H/O COPD. Mild. Stable H/O HFpEF: stable H/O TIA/CVA: Continue ASA and plavix Chronic back pain: improved with oxycodone prn K pad Lidoderm patch Oxycodone q 4 h prn AM Labs: cbc, ionized ca Anticipated days until discharge: 1-3 days Subjective/ROS: Tired today. Cough improving but still reports small amount of yellow/brown sputum. Denies chest pain, shortness of breath, n/v/d. Objective: Most recent vital signs: BP 107/64 | Pulse 84 | Temp 36.6 C (97.88 F) (Oral) | Resp 20 | Ht 1.676 m (5' 6") | Wt 97.2 kg (214 lb 4.6 oz) | SpO2 91% | BMI 34.59 kg/m Vital sign ranges for last 24hrs: Input and output for last 24hrs: Temp: [36.5 C (97.7 F)-36.7 C (98.1 F)] 36.6 C (97.88 F) Pulse: [77-93] 84 Resp: [16-20] 20 BP: (107-136)/(58-80) 107/64 SpO2 Av.7 % Min: 83 % Max: 95 % Flow (L/min) Av.6 Min: 1 Max: 2 10/13 1901 - 10/15 0700 In: 1310 [P.O.:710] Out: 670 [Urine:670] Physical Examination: General: Awake, alert, upright in chair Cardiovascular: RRR, audible s1 and s2 Respiratory: Fine rales to RLL. Abdomen: Round, soft, non-distended, non-tender Extremities: Trace edema to BLE Skin: intact Neurological: A&O x3, moving all extremities Psychiatric: Appropriate affect Last 8 glucose values: Recent Labs Lab 10/15/18 0708 10/15/18 0510/14/18 2126 10/14/18 1701 10/14/18 1154 10/14/18 0736 10/14/18 0535 10/13/18200710/13/18 1619 10/13/18 1143 10/13/18 0520 10/12/18 1714 10/12/18 1320 POCGLU 111* -- 184* 122* 236* 117* -- 150* 175* 251* < > -- < > -- -- GLU -- 99 -- -- -- -- 120* -- -- -- -- 283* -- 366* 469* < > = values in this interval not displayed. Labs/Studies: Recent Labs Lab 10/15/18 0520 10/14/18 0535 10/13/18 0520 10/12/18 1320 WBC 10.9* 11.2* 9.7 12.0* HGB 11.2* 11.9* 11.0* 11.3* HCT 35.5* 37.8* 34.2* 35.5* PLT 156 175 171 182 Recent Labs Lab 10/15/18 0520 10/14/18 0535 10/13/18 0520 10/12/18 1714 10/12/18 1320 NA 139 142 140 -- 137 K 3.6 3.5 3.7 -- 3.7 CL 105 106 107 -- 102 CO2 31 28 32 -- 27 BUN 9 10 10 -- 15 CREA 0.96 1.12 0.98 -- 1.25 GLU 99 120* 283* 366* 469* MG -- 2.0 1.6* -- -- CALCIUM 8.2* 8.5 7.7* -- 8.5 BILITOT -- -- -- -- 0.6 AST -- -- -- -- 12 ALT -- -- -- -- 32 ALKPHOS -- -- -- -- 85 ALBUMIN -- -- -- -- 2.7* Pertinent micro results: Microbiology Results (Last 7) Date with Culture/Sensitivity) Procedure Component Value Units Date/Time Culture, Blood [[id number]] Collected: 10/12/18 1320 Order Status: Completed Lab Status: Preliminary result Updated: 10/14/181410 Specimen: Peripheral Blood Culture No growth: Monitored continually by instrument for 5 days Culture, Blood [[id number]] Collected: 10/12/18 1305 Order Status: Completed Lab Status: Preliminary result Updated: 10/14/181410 Specimen: Peripheral Blood Culture No growth: Monitored continually by instrument for 5 days Fl Video Swallow W Speech Result Date: [...] No evidence of aspiration. Dictated by: Massimo Hutchinson am Electronically Signed: CHANTEL Hillman 10/15/2018 Portions of this chart may have been created with voice recognition software. Occasional wo rd or "sound-alike" substitutions may have occurred due to the inherent limitation of voice recognition software. Read the chart carefully and recognize, using context, where these sub stitutions have occurred. Kasey Wells NP - 10/14/2018 9:13 AM PDT MEDICAL HOSPITALIST TEAM PROGRESS NOTE Name:[facility]eraldo Mcfadd[facility] Hospital Day # 2 Assessment and Plan: Reason for admission and continued stay: Geraldo Mcfadden is a 78 y.o. male hospitalized for Pneumonia due to infectious organism Principal Problem: Pneumonia due to infectious organism Active Problems: History of arterial ischemic stroke Gastroesophageal reflux disease without esophagitis Acquired hypothyroidism Type 2 diabetes mellitus with diabetic polyneuropathy, with long-term current use of insu gely Mediastinal lymphadenopathy COPD, mild Resolved Problems: * No resolved hospital problems. * Pneumonia: bibasilar. Suspect aspiration. Video swallow study showed reflux and esophageal dysmotility. No aspiration. Remains a-febrile. Cough more productive today with yellow/brown sputum. Continue IV zosyn Increase Protonix to bid Mediastinal lymphadenopathy: improved on current CT. Follow up with oncology as an outpatie nt. GERD: Increase protonix to bid as above Up to chair for all meals. Sit up for at least 30 min after meal ? Gastroparesis. Gastric emptying study Hypothyroid: TSH of 34.6 with T4 of 0.4. Has not been followed by PCP since last increase o f his levothyroxine. Patient and spouse report he is taking his levothyroxine on an empty st omach first thing in the am. He waits at least 30 min to eat. Once in a while he will forget and eat first. His spouse states this is a rare occasion. Increase Levothyroxine to 250 mcg daily from 225 mcg daily. Pharmacy review of medications to evaluate for any interactions with levothyroxine absorpti on. Consider endocrinology referral as an outpatient DM2: stable Continue Lantus 18 units q pm Continue Lispro 5 units with meals and low dose ssi ac and hs H/O COPD: mild. Stable H/O HFpEF: stable H/O CVA/TIA Continue plavix and asa Chronic Back pain: k pad lidoderm patch Oxycodone q 4 h prn AM Labs: cbc, bmp, ionized ca Anticipated days until discharge: 2-3 days Subjective/ROS: States feeling tired. Cough more productive with yellow/brown sputum. Denies shortness of b reath or chest pain. Denies n/v/d. Objective: Most recent vital signs: BP 132/70 | Pulse 75 | Temp 36.7 C (98.1 F) (Oral) | Resp 20 | Ht 1.676 m (5' 6") | Wt 97.2 kg (214 lb 4.6 oz) | SpO2 92% | BMI 34.59 kg/m Vital sign ranges for last 24hrs: Input and output for last 24hrs: Temp: [36.2 C (97.16 F)-36.8 C (98.24 F)] 36.7 C (98.1 F) Pulse: [70-87] 75 Resp: [16-20] 20 BP: (113-150)/(59-83) 132/70 SpO2 Av.8 % Min: 90 % Max: 96 % Flow (L/min) Av.9 Min: 0.5 Max: 2 10/12 1901 - 10/14 0700 In: 2187 [P.O.:420; I.V.:1267] Out: 1270 [Urine:1270] Physical Examination: General: Awake, alert, upright in bed Cardiovascular: RRR, audible s1 and s2 Respiratory: Diminished to bases bilaterally Abdomen: Round, soft, non-tender to palpation Extremities: 1+ pitting edema to bilateral lower extremities up to knees. Skin: intact Neurological: A&O x3, moving all extremities Psychiatric: Appropriate affect Last 8 glucose values: Recent Labs Lab 10/14/18 0736 10/14/18 0535 10/13/18200710/13/18 1619 10/13/18 1143 10/13/18 0731 10/13/18 0510/12/18202910/12/18 17110/12/18 1320 POCGLU 117* -- 150* 175* 251* 225* -- 286* -- -- GLU -- 120* -- -- -- -- 283* -- 366* 469* Labs/Studies: Recent Labs Lab 10/14/18 0535 10/13/18 0520 10/12/18 1320 WBC 11.2* 9.7 12.0* HGB 11.9* 11.0* 11.3* HCT 37.8* 34.2* 35.5* PLT 175 171 182 Recent Labs Lab 10/14/1853410/13/18 0510/12/18 17110/12/18 1320 NA 142 140 -- 137 K 3.5 3.7 -- 3.7 CL 106 107 -- 102 CO2 28 32 -- 27 BUN 10 10 -- 15 CREA 1.12 0.98 -- 1.25 GLU 120* 283* 366* 469* MG 2.0 1.6* -- -- CALCIUM 8.5 7.7* -- 8.5 BILITOT -- -- -- 0.6 AST -- -- -- 12 ALT -- -- -- 32 ALKPHOS -- -- -- 85 ALBUMIN -- -- -- 2.7* Pertinent micro results: Microbiology Results (Last 7) Date with Culture/Sensitivity) Procedure Component Value Units Date/Time Culture, Blood [[id number]] Collected: 10/12/18 1320 Order Status: Completed Lab Status: Preliminary result Updated: 10/13/18 141 Specimen: Peripheral Blood Culture No growth: Monitored continually by instrument for 5 days Culture, Blood [[id number]] Collected: 10/12/18 1305 Order Status: Completed Lab Status: Preliminary result Updated: 10/13/18 141 Specimen: Peripheral Blood Culture No growth: Monitored continually by instrument for 5 days Xr Chest Pa And Lateral Result Date: [...] small parapneumonic effusion. Dictated by: Nestor Alba Ct Angiogram Pulmonary W Contrast Result [...] at 15:58 Dictated b y: Massimo Alba Electronically Signed: CHANTEL Hillman 10/14/2018 Portions of this chart may have been created with voice recognition software. Occasional wo rd or "sound-alike" substitutions may have occurred due to the inherent limitation of voice recognition software. Read the chart carefully and recognize, using context, where these sub stitutions have occurred. asey Salinas NP - 10/13/2018 12:47 PM PDT MEDICAL HOSPITALIST TEAM PROGRESS NOTE Name:[facility] Day # 1 Assessment and Plan: Reason for admission and continued stay: Geraldo Mcfadden is a 78 y.o. male hospitalized for Pneumonia due to infectious organism Principal Problem: Pneumonia due to infectious organism Active Problems: History of arterial ischemic stroke Gastroesophageal reflux disease without esophagitis Acquired hypothyroidism Type 2 diabetes mellitus with diabetic polyneuropathy, with long-term current use of insu gely Mediastinal lymphadenopathy COPD, mild Resolved Problems: * No resolved hospital problems. * Pneumonia: Bibasilar Suspect aspiration based on CT chest findings. ? reflux Speech eval today with no obvious aspiration. Will order video swallow for am to rule out s ilent aspiration. Oxygen weaned from 3L to 0.5L. A-febrile overnight. WBC count improved. Diet per speech therapist Continue IV Zosyn for now. Saline lock IV fluids Mediastinal Lymphadenopathy: noted on CTA of the chest from Emergency Department visit 09/29 11/23. This showed Interval development of hilar and mediastinal adenopathy concerning for ma lignancy. Interval development 2 lung nodules suspicious for malignancy at the left lower lo be. Current CT of chest with contrast shows mediastinal and hilar lymphadenopathy is mildl y improved. Additionally there is mild interval decreased size of the left basilar lung no dule. Query infectious versus inflammatory process. Continued surveillance is recommende d. The left basilar juxtapleural nodule of concern on the previous exam is obscured by the b asilar pneumonia. Attention to this on subsequent follow-up. Patient has referral to Oncology in process. Recommend follow up as an outpatient with foll ow up CT to monitor. H/O COPD: no evidence of wheezing. Albuterol nebs prn H/O HFpEF: No evidence of volume overload. Echo from 08/2018 showed preserved EF with grade 1 diastolic dysfunction. Unable to measure pulmonary pressures. H/O CVA/TIA: Continue ASA and Plavix. GERD: Continue home omeprazole H/O Hypothyroid: med rec discrepency. Patient taking 225 mcg daily not 75 mcg daily. Last T SH checked 07/2018 TSH at that time was 9.27. Levothyroxine was increased from 200 mcg daily to 225 mcg daily. No follow up TSH completed. Add on TSH Give additional 125 mcg levothyroxine today Start 225 mcg levothyroxine in am DM2: Currently with hyperglycemia. ADD on A1c Continue Lantus 18 units daily Lispro 5 units with meals in addition to low dose sliding scale ac and hs AM Labs: cbc, bmp, mag, ionized ca Anticipated days until discharge: 3-4 days Subjective/ROS: Denies cough, shortness of breath, chest pain, nausea, Vomiting. Last BM 10/12/18. Poor appe tite. No fevers or chills. Objective: Most recent vital signs: BP 113/64 | Pulse 71 | Temp 36.2 C (97.16 F) (Oral) | Resp 18 | Ht 1.676 m (5' 6") | Wt 97.2 kg (214 lb 4.6 oz) | SpO2 93% | BMI 34.59 kg/m Vital sign ranges for last 24hrs: Input and output for last 24hrs: Temp: [36.2 C (97.16 F)-36.6 C (97.9 F)] 36.2 C (97.16 F) Pulse: [64-91] 71 Resp: [13-21] 18 BP: (100-157)/(58-121) 113/64 SpO2 Av.3 % Min: 91 % Max: 98 % Flow (L/min) Av.2 Min: 0.5 Max: 3 10/11 1900 - 10/13 07 In: 1850 [I.V.:650] Out: 700 [Urine:700] Physical Examination: General: Awake, alert, upright in bed Cardiovascular: RRR, audible s1 and s2 Respiratory: Mild wheeze throughout that cleared with cough. Diminished to bases bilateral ly Abdomen: Round, soft, non-tender to palpation Extremities: Trace edema to bilateral lower extremities Skin: intact Neurological: A&O x3, moving all extremities Psychiatric: Appropriate affect Last 8 glucose values: Recent Labs Lab 10/13/18 1143 10/13/18 0731 10/13/18 0520 10/12/18 2030 10/12/18 17110/12/18 1320 POCGLU 251* 225* -- 286* -- -- GLU -- -- 283* -- 366* 469* Labs/Studies: Recent Labs Lab 10/13/18 0520 10/12/18 1320 WBC 9.7 12.0* HGB 11.0* 11.3* HCT 34.2* 35.5* PLT 171 182 Recent Labs Lab 10/13/18 0520 10/12/18 1714 10/12/18 1320 NA 140 -- 137 K 3.7 -- 3.7 CL 107 -- 102 CO2 32 -- 27 BUN 10 -- 15 CREA 0.98 -- 1.25 GLU 283* 366* 469* MG 1.6* -- -- CALCIUM 7.7* -- 8.5 BILITOT -- -- 0.6 AST -- -- 12 ALT -- -- 32 ALKPHOS -- -- 85 ALBUMIN -- -- 2.7* Pertinent micro results: Microbiology Results (Last 7) Date with Culture/Sensitivity) Procedure Component Value Units Date/Time Culture, Blood [[id number]] Collected: 10/12/18 1320 Order Status: Completed Lab Status: Preliminary result Updated: 10/13/18210 Specimen: Peripheral Blood Culture No growth: Monitored continually by instrument for 5 days Culture, Blood [[id number]] Collected: 10/12/18 1305 Order Status: Completed Lab Status: Preliminary result Updated: 10/13/18 0211 Specimen: Peripheral Blood Culture No growth: Monitored continually by instrument for 5 days Xr Chest Pa And Lateral Result Date: [...] small parapneumonic effusion. Dictated by: Nestor Alba Ct Angiogram Pulmonary W Contrast Result [...] at 15:58 Dictated b y: Massimo Alba Electronically Signed: Kasey Salinas NP-C 10/13/2018 Portions of this chart may have been created with voice recognition software. Occasional wo rd or "sound-alike" substitutions may have occurred due to the inherent limitation of voice recognition software. Read the chart carefully and recognize, using context, where these sub stitutions have occurred. Scott Mendes Pha rmacy Film And Video Editor - 10/13/2018 8:27 AM PDTFormatting of this note might be different from the or iginal. PHARMACY SERVICES: ADMISSION MEDICATION REVIEW Geraldo Mcfadden is a 78 y.o. male admitted on 10/12/2018. Patient was not reliable historian. Location of Patient when reviewed: Medical Floor Patient s prior to admit medication and over the counter (OTC) medications/herbal supplem ents list obtained from: Verbal interview Patient able to recall SOME Name, strength, and directions Patient not interviewed or unable to supply information due to: poor familiarity with meds Noted medications discrepancies or medication-related issues: Removed therapy: Medication: Prior to Admission Sig: Reason for Removal: Cefuroxime 500 mg tablet Take 1 tab po bid Therapy completed Prednisone 10 mg tabs Take 3 tabs po qday. 3 tabs for 1 day, then 2 tabs the next, then 1 t ab the next, then stop Therapy completed Patient was a poor historian, needing prompting to recall meds used, though list is mostly up to date after last, recent admit. Patient admitted last night, but states that "my m akes sure I take my medicines" in regard to last doses, which he recalled as yesterday beth squires. Therapy completed on cefuroxime, and patient also reports having finished the prednisone taper. Patient states no other new meds started or discontinued since last admit. Patient h as no further questions at this time. Medication review performed and electronically signed by Scott Caballero, Marketing Development Representative 10/13/2018 8:27 Associated attestation - Clarence Coulter, PharmD - 10/13/2018 9:03 AM PDTI have revi ewed and agree with this therapy plan of care. Clarence Coulter, PharmD, 10/13/2018 9:03 documented in this encounter Plan of Treatment [...] [place] | | | | | | [address] | | | | | | [phone] | | | | | | | | +--------+---------+ + + + | 02/26/ | Office | Urology | Lillie Fowler | | | 2018 | Visit | | LILLIE Lopez [address] | | | | | | [address] | | | | | | [place] | | | | | | [address] | | | | | | [phone] | | | | | | | | +--------+---------+ + + + | 03/16/ | Office | Neurology | Theresa, | | | 2018 | Visit | | SHONDA Mckinney [address] [place], | | | | | | [place] [address] | | | | | | [phone] | | | | | | | | +--------+---------+ + + + | 04/12/ | Office | Primary Care | Massimo Ramos | | | 2019 | Visit | | MD Fer [address] | | | | | | [address] [place] | | | | | | [address] | | | | | | | | +--------+---------+ + + + | 10/03/ | Office | Neurology | Fabián Carias MD | | | 2020 | Visit | | [address] | | | | | | [place] | | | | | | [address] | | | | | | | | +--------+---------+ + + + + +------+--------+ + + | Name | Type | Priori | Associated Diagnoses | Date/Time | | | | ty | | | + +------+--------+ + + | ED INFORMATION | BRIT | Routin | | 10/12/2018 12:08 PM | | EXCHANGE | | e [...] | | | care | | | [employer] Operator-C | | | | | | [...] | | | care | | | [employer] And Lathe Operator-C | | | | | | [...] | | | care | | | [employer] And Lathe Operator-C | | | | | | [...] | | | care | | | [employer] And Lathe Operator-C | | | | | | [...] + | POC GLUCOSE | Routin | 10/19/2018 | | Results for this | | | e | 11:41 AM | | procedure are in the | | | | PDT | | results section. | + +--------+ + + + | POC GLUCOSE | Routin | 10/19/2018 | | Results for this | | | e | 8:02 AM | | procedure are in the | | | | PDT | | results section. | + +--------+ + + + | POC GLUCOSE | Routin | 10/18/2018 | | Results for this | | | e | 8:21 PM | | procedure are in the | | | | PDT | | results section. | + +--------+ + + + | POC GLUCOSE | Routin | 10/18/2018 | | Results for this | | | e | 4:48 PM | | procedure are in the | | | | PDT | | results section. | + +--------+ + + + | POC GLUCOSE | Routin | 10/18/2018 | | Results for this | | | e | 11:54 AM | | procedure are in the | | | | PDT | | results section. | + +--------+ + + + | POC GLUCOSE | Routin | 10/18/2018 | | Results for this | | | e | 7:43 AM | | procedure are in the | | | | PDT | | results section. | + +--------+ + + + | CALCIUM, IONIZED | Routin | 10/18/2018 | | Results for this | | | e | 6:17 AM | | procedure are in the | | | | PDT | | results section. | + +--------+ + + + | POC GLUCOSE | Routin | 10/17/2018 | | Results for this | | | e | 8:52 PM | | procedure are in the | | | | PDT | | results section. | + +--------+ + + + | POC GLUCOSE | Routin | 10/17/2018 | | Results for this | | | e | 4:50 PM | | procedure are in the | | | | PDT | | results section. | + +--------+ + + + | POC GLUCOSE | Routin | 10/17/2018 | | Results for this | | | e | 11:30 AM | | procedure are in the | | | | PDT | | results section. | + +--------+ + + + | POC GLUCOSE | Routin | 10/17/2018 | | Results for this | | | e | 7:22 AM | | procedure are in the | | | | PDT | | results section. | + +--------+ + + + | DIFFERENTIAL, MANUAL | Routin | 10/17/2018 | | Results for this | | | e | 6:55 AM | | procedure are in the | | | | PDT | | results section. | + +--------+ + + + | CBC WITH | Routin | 10/17/2018 | | Results for this | | DIFFERENTIAL | e | 6:55 AM | | procedure are in the | | | | PDT | | results section. | + +--------+ + + + | CALCIUM, IONIZED | Routin | 10/17/2018 | | Results for this | | | e | 6:55 AM | | procedure are in the | | | | PDT | | results section. | + +--------+ + + + | POC GLUCOSE | Routin | 10/16/2018 | | Results for this | | | e | 8:46 PM | | procedure are in the | | | | PDT | | results section. | + +--------+ + + + | POC GLUCOSE | Routin | 10/16/2018 | | Results for this | | | e | 4:28 PM | | procedure are in the | | | | PDT | | results section. | + +--------+ + + + | NM GASTRIC EMPTYING | Routin | 10/16/2018 | | Results for this | | | e | 12:28 PM | | procedure are in the | | | | PDT | | results section. | + +--------+ + + + | POC GLUCOSE | Routin | 10/16/2018 | | Results for this | | | e | 12:02 PM | | procedure are in the | | | | PDT | | results section. | + +--------+ + + + | DIFFERENTIAL, MANUAL | Routin | 10/16/2018 | | Results for this | | | e | 9:10 AM | | procedure are in the | | | | PDT | | results section. | + +--------+ + + + | CBC WITH | Routin | 10/16/2018 | | Results for this | | DIFFERENTIAL | e | 9:10 AM | | procedure are in the | | | | PDT | | results section. | + +--------+ + + + | CALCIUM, IONIZED | Routin | 10/16/2018 | | Results for this | | | e | 9:10 AM | | procedure are in the | | | | PDT | | results section. | + +--------+ + + + | POC GLUCOSE | Routin | 10/16/2018 | | Results for this | | | e | 7:41 AM | | procedure are in the | | | | PDT | | results section. | + +--------+ + + + | POC GLUCOSE | Routin | 10/15/2018 | | Results for this | | | e | 8:27 PM | | procedure are in the | | | | PDT | | results section. | + +--------+ + + + | POC GLUCOSE | Routin | 10/15/2018 | | Results for this | | | e | 4:28 PM | | procedure are in the | | | | PDT | | results section. | + +--------+ + + + | POC GLUCOSE | Routin | 10/15/2018 | | Results for this | | | e | 1:16 PM | | procedure are in the | | | | PDT | | results section. | + +--------+ + + + | POC GLUCOSE | Routin | 10/15/2018 | | Results for this | | | e | 11:38 AM | | procedure are in the | | | | PDT | | results section. | + +--------+ + + + | POC GLUCOSE | Routin | 10/15/2018 | | Results for this | | | e | 7:08 AM | | procedure are in the | | | | PDT | | results section. | + +--------+ + + + | DIFFERENTIAL, MANUAL | Routin | 10/15/2018 | | Results for this | | | e | 5:20 AM | | procedure are in the | | | | PDT | | results section. | + +--------+ + + + | CBC WITH | Routin | 10/15/2018 | | Results for this | | DIFFERENTIAL | e | 5:20 AM | | procedure are in the | | | | PDT | | results section. | + +--------+ + + + | CALCIUM, IONIZED | Routin | 10/15/2018 | | Results for this | | | e | 5:20 AM | | procedure are in the | | | | PDT | | results section. | + +--------+ + + + | BASIC METABOLIC | Routin | 10/15/2018 | | Results for this | | PANEL | e | 5:20 AM | | procedure are in the | | | | PDT | | results section. | + +--------+ + + + | ECG - EXTERNAL SCAN | | 10/15/2018 | | Results for this | | | | 12:00 AM | | procedure are in the | | | | PDT | | results section. | + +--------+ + + + | POC GLUCOSE | Routin | 10/14/2018 | | Results for this | | | e | 9:26 PM | | procedure are in the | | | | PDT | | results section. | + +--------+ + + + | POC GLUCOSE | Routin | 10/14/2018 | | Results for this | | | e | 5:01 PM | | procedure are in the | | | | PDT | | results section. | + +--------+ + + + | POC GLUCOSE | Routin | 10/14/2018 | | Results for this | | | e | 11:54 AM | | procedure are in the | | | | PDT | | results section. | + +--------+ + + + | FL VIDEO SWALLOW W | Routin | 10/14/2018 | | Results for this | | SPEECH | e | 9:55 AM | | procedure are in the | | | | PDT | | results section. | + +--------+ + + + | POC GLUCOSE | Routin | 10/14/2018 | | Results for this | | | e | 7:36 AM | | procedure are in the | | | | PDT | | results section. | + +--------+ + + + | DIFFERENTIAL, MANUAL | Routin | 10/14/2018 | | Results for this | | | e | 5:35 AM | | procedure are in the | | | | PDT | | results section. | + +--------+ + + + | CBC WITH | Routin | 10/14/2018 | | Results for this | | DIFFERENTIAL | e | 5:35 AM | | procedure are in the | | | | PDT | | results section. | + +--------+ + + + | MAGNESIUM | Routin | 10/14/2018 | | Results for this | | | e | 5:35 AM | | procedure are in the | | | | PDT | | results section. | + +--------+ + + + | CALCIUM, IONIZED | Routin | 10/14/2018 | | Results for this | | | e | 5:35 AM | | procedure are in the | | | | PDT | | results section. | + +--------+ + + + | BASIC METABOLIC | Routin | 10/14/2018 | | Results for this | | PANEL | e | 5:35 AM | | procedure are in the | | | | PDT | | results section. | + +--------+ + + + | POC GLUCOSE | Routin | 10/13/2018 | | Results for this | | | e | 8:08 PM | | procedure are in the | | | | PDT | | results section. | + +--------+ + + + | POC GLUCOSE | Routin | 10/13/2018 | | Results for this | | | e | 4:19 PM | | procedure are in the | | | | PDT | | results section. | + +--------+ + + + | TSH, REFLEX FREE T4 | Add-On | 10/13/2018 | | Results for this | | | | 2:03 PM | | procedure are in the | | | | PDT | | results section. | + +--------+ + + + | T4, FREE | Routin | 10/13/2018 | | Results for this | | | e | 2:03 PM | | procedure are in the | | | | PDT | | results section. | + +--------+ + + + | CALCIUM, IONIZED | Routin | 10/13/2018 | | Results for this | | | e | 2:03 PM | | procedure are in the | | | | PDT | | results section. | + +--------+ + + + | POC GLUCOSE | Routin | 10/13/2018 | | Results for this | | | e | 11:43 AM | | procedure are in the | | | | PDT | | results section. | + +--------+ + + + | POC GLUCOSE | Routin | 10/13/2018 | | Results for this | | | e | 7:31 AM | | procedure are in the | | | | PDT | | results section. | + +--------+ + + + | CBC WITH | Routin | 10/13/2018 | | Results for this | | DIFFERENTIAL | e | 5:20 AM | | procedure are in the | | | | PDT | | results section. | + +--------+ + + + | MAGNESIUM | Routin | 10/13/2018 | | Results for this | | | e | 5:20 AM | | procedure are in the | | | | PDT | | results section. | + +--------+ + + + | LACTIC ACID | Routin | 10/13/2018 | | Results for this | | | e | 5:20 AM | | procedure are in the | | | | PDT | | results section. | + +--------+ + + + | HEMOGLOBIN A1C | Add-On | 10/13/2018 | | Results for this | | | | 5:20 AM | | procedure are in the | | | | PDT | | results section. | + +--------+ + + + | BASIC METABOLIC | Routin | 10/13/2018 | | Results for this | | PANEL | e | 5:20 AM | | procedure are in the | | | | PDT | | results section. | + +--------+ + + + | POC GLUCOSE | Routin | 10/12/2018 | | Results for this | | | e | 8:30 PM | | procedure are in the | | | | PDT | | results section. | + +--------+ + + + | GLUCOSE, RANDOM | Routin | 10/12/2018 | | Results for this | | | e | 5:14 PM | | procedure are in the | | | | PDT | | results section. | + +--------+ + + + | CT ANGIOGRAM | STAT | 10/12/2018 | | Results for this | | PULMONARY | | 3:50 PM | | procedure are in the | | | | PDT | | results section. | + +--------+ + + + | URINALYSIS WITH | STAT | 10/12/2018 | | Results for this | | MICROSCOPIC WITH | | 2:38 PM | | procedure are in the | | CULTURE IF INDICATED | | PDT | | results section. | + +--------+ + + + | XR CHEST PA AND | STAT | 10/12/2018 | | Results for this | | LATERAL | | 2:00 PM | | procedure are in the | | | | PDT | | results section. | + +--------+ + + + | ECG 12 LEAD | STAT | 10/12/2018 | | Results for this | | | | 1:20 PM | | procedure are in the | | | | PDT | | results section. | + +--------+ + + + | TROPONIN I | STAT | 10/12/2018 | | Results for this | | | | 1:20 PM | | procedure are in the | | | | PDT | | results section. | + +--------+ + + + | DIFFERENTIAL, MANUAL | Routin | 10/12/2018 | | Results for this | | | e | 1:20 PM | | procedure are in the | | | | PDT | | results section. | + +--------+ + + + | CULTURE, BLOOD | STAT | 10/12/2018 | | Results for this | | | | 1:20 PM | | procedure are in the | | | | PDT | | results section. | + +--------+ + + + | CBC WITH | STAT | 10/12/2018 | | Results for this | | DIFFERENTIAL | | 1:20 PM | | procedure are in the | | | | PDT | | results section. | + +--------+ + + + | B TYPE NATRIURETIC | STAT | 10/12/2018 | | Results for this | | PEPTIDE | | 1:20 PM | | procedure are in the | | | | PDT | | results section. | + +--------+ + + + | LACTIC ACID | STAT | 10/12/2018 | | Results for this | | | | 1:20 PM | | procedure are in the | | | | PDT | | results section. | + +--------+ + + + | COMPREHENSIVE | STAT | 10/12/2018 | | Results for this | | METABOLIC PANEL | | 1:20 PM | | procedure are in the | | | | PDT | | results section. | + +--------+ + + + | CULTURE, BLOOD | STAT | 10/12/2018 | | Results for this | | | | 1:05 PM | | procedure are in the | | | | PDT | | results section. | + +--------+ + + + | OXYGEN THERAPY | Routin | 10/12/2018 | | | | | e | 12:52 PM | | | | | | PDT | | | + +--------+ + + + documented in this encounter Results POC Glucose (10/19/2018 11:41 AM PDT) + +---------+ + + + | Component | Value | Ref Range | Performed | Pathologist | | | | | At | Signature | + +---------+ + + + | Glucose, | 216 (H) | 70 - 110 mg/dL | [...] + + | [facility] | [address] | [place] [address] | [phone] | | [facility] | | | | + + + + + POC Glucose (10/19/2018 8:02 AM PDT) + +---------+ + + + [...] + + | [facility] | [address] | [place] [address] | [phone] | | [facility] | | | | + + + + + POC Glucose (10/18/2018 8:21 PM PDT) + +---------+ + + + | Component | Value | Ref Range | Performed | Pathologist | | | | | At | Signature | + +---------+ + + + | Glucose, | 149 (H) | 70 - 110 mg/dL | [...] + + | [facility] | [address] | [place] [address] | [phone] | | [facility] | | | | + + + + + POC Glucose (10/18/2018 4:48 PM PDT) + +---------+ + + + | Component | Value | Ref Range | Performed | Pathologist | | | | | At | Signature | + +---------+ + + + | Glucose, | 114 (H) | 70 - 110 mg/dL | [...] + + | [facility] | [address] | [place] [address] | [phone] | | [facility] | | | | + + + + + POC Glucose (10/18/2018 11:54 AM PDT) + +---------+ + + + | Component | Value | Ref Range | Performed | Pathologist | | | | | At | Signature | + +---------+ + + + | Glucose, | 142 (H) | 70 - 110 [...] + + | [facility] | [address] | [place] [address] | [phone] | | [facility] | | | | + + + + + POC Glucose (10/18/2018 7:43 AM PDT) + +---------+ + + [...] + + | [facility] | [address] | [place] [address] | [phone] | | [facility] | | | | + + + + + Calcium, Ionized (10/18/2018 6:17 AM PDT) + +-------+ + + + | Component | Value | Ref Range | Performed | Pathologist | | | | | At | Signature | + +-------+ + + + | Calcium, | 1.28 | 1.17 - 1.32 | [facility] | [...] + + | [facility] | [address] | [place] [address] | [phone] | | [facility] | | | | + + + + + POC Glucose (10/17/2018 8:52 PM PDT) + +-------+ + + + | Component | Value | Ref Range | Performed | Pathologist | | | | | At | Signature | + +-------+ + + + | Glucose, | 89 | 70 - 110 mg/dL | [facility] [...] + + | [facility] | [address] | [place] [address] | [phone] | | [facility] | | | | + + + + + POC Glucose (10/17/2018 4:50 PM PDT) + +-------+ + + + | Component | Value | Ref Range | Performed | Pathologist | | | | | At | Signature | + +-------+ + + + | Glucose, | 106 | 70 - 110 mg/dL | [facility] [...] + + | [facility] | [address] | [place] [address] | [phone] | | [facility] | | | | + + + + + POC Glucose (10/17/2018 11:30 AM PDT) + +---------+ + + + | Component | Value | Ref Range | Performed | Pathologist | | | | | At | Signature | + +---------+ + + + | Glucose, | 159 (H) | 70 - 110 mg/dL | [...] + + | [facility] | [address] | [place] [address] | [phone] | | [facility] | | | | + + + + + POC Glucose (10/17/2018 7:22 AM PDT) + +---------+ + + + | Component | Value | Ref Range | Performed | Pathologist | | | | | At | Signature | + +---------+ + + + | Glucose, | 114 (H) | 70 - 110 mg/dL | [...] + + | [facility] | [address] | [place] [address] | [phone] | | [facility] | | | | + + + + + Differential, Manual (10/17/2018 6:55 AM PDT) + + + + + + | Component | Value | Ref Range | Performed | Pathologist | | | | | At | Signature | + + + + + + | % Segmented | 40.0 (L) | 42.0 - 76.0 % | [facility] | [facility] | | | Neutrophils | | | [facility] | | | | | | [facility] | | + + + + + + | % | 16.0 (L) | 20.0 - 40.0 % | [facility] | | Lymphocytes | | | [facility] | | | | [facility] | | | | | | [facility] | | + + + + + + | % Monocytes | 7.0 | 3.0 - 13.0 % | [facility] | | | | | [facility] | | + + + + + + | % | 32.0 (H) | 0.0 - 7.0 % | [facility] | | | Eosinophils | | | [facility] | | | | | | [facility] | | + + + + + + | % Bands | 5.0 | 0.0 - 7.0 % | [facility] | | | | | [facility] | | + + + + + + | Absolute | 4.36 | 2.80 - 7.70 | [facility] | [...] + + + | Absolute | 0.76 | 0.00 - 0.80 | [facility] | | | Monocytes | | K/uL | [facility] | | | | | | [facility] | | + + + + + + | Absolute | 3.49 (H) | 0.00 - 0.70 | [facility] | | | Eosinophils | | K/uL | [facility] | | | | | | [facility] | | + + + + + + | Absolute | 0.55 (H) | 0.00 - 0.15 | [facility] [...] + + + + | Platelet | Decreased (A) | Adequate | [facility] | | | [...] Performed At | + + + | Band forms of eosinophils are present. | [facility] | | | [facility] | | | [facility] | + + + + + + + + | Performing | Address | City/State/Zipcode | Phone Number | | Organization | | | | + + + + + | [facility] | [address] | [place] [address] | [phone] | | [facility] | | | | + + + + + Calcium, Ionized (10/17/2018 6:55 AM PDT) + + + + + + | Component | Value | Ref Range | Performed | Pathologist | | | | | At | Signature | + + + + + + | Calcium, | 1.06 (L) | 1.17 - 1.32 | [facility] [...] + + | [facility] | [address] | [place] [address] | [phone] | | [facility] | | | | + + + + + CBC with Differential (10/17/2018 6:55 AM PDT) + + + + + + | Component | Value | Ref Range | Performed | Pathologist | | | | | At | Signature | + + + + + + | WBC | 10.9 (H) | 4.6 - 10.5 K/uL | [facility] | [facility] | | | | | [facility] | | + + + + + + | RBC | 3.75 (L) | 4.36 - 5.83 | [facility] [...] + + + + | Hematocrit | 35.0 (L) | 39.0 - 51.9 % | [...] + + + + | MCH | 29.6 | 27.7 - 32.3 pg | [facility] [...] + + + + | RDW-CV | 19.9 (H) | 0.0 - 17.0 % | [facility] | | | | | [facility] | | + + + + + + | Platelet | 146 (L) | 150 - 450 K/uL | [...] + + | [facility] | [address] | [place] [address] | [phone] | | [facility] | | | | + + + + + POC Glucose (10/16/2018 8:46 PM PDT) + +---------+ + + + [...] + + | [facility] | [address] | [place] [address] | [phone] | | [facility] | | | | + + + + + POC Glucose (10/16/2018 4:28 PM PDT) + +---------+ + + + [...] + + | [facility] | [address] | [place] [address] | [phone] | | [facility] | | | | + + + + + NM Gastric Emptying (10/16/2018 12:28 PM PDT) + + | Specimen | + + | | + + + + + | Impressions | Performed At | + + + | IMPRESSION: Normal gastric emptying. Dictated by: Massimo | [facility] | | [place] | | | 12:35 PM | | + + + + + + | Narrative | Performed At | + + + | EXAMINATION: NM GASTRIC EMPTYING HISTORY: suspected | [facility] | | gastroparesis COMPARISON STUDY: None TECHNIQUE: 1.0 | | | millicuries of sulfur colloid was combined with a standard meal and | | | consumed by the patient. Routine imaging over 4 hours was then | | | performed. FINDINGS: Today's study demonstrates the following | | | values: T1/2 emptying time 102.8 minutes. 60 minutes retention 78.3 | | | % 90 minutes retention 42.0 % 120 minutes retention 29.3 % 240 | | | minute retention 7.0 % Normal gastric emptying T1/2 60-110 | | | minutes Normal retention values; 30 minutes 70-100% 60 minutes | | | 39-90% 120 minutes 30-60% 240 minutes 0-10% | | + + + + + | Procedure Note | + + | Adithya Mcneill Results In - 10/16/2018 12:39 PM PDT EXAMINATION:NM GASTRIC | | EMPTYINGHISTORY:suspected gastroparesisCOMPARISON STUDY:NoneTECHNIQUE:1.0 millicuries of | | sulfur colloid was combined with a standard meal and consumed by the patient. Routine | | imaging over 4 hours was then performed.FINDINGS:Today's study demonstrates the | | following values:T1/2 emptying time 102.8 minutes.60 minutes retention 78.3 %90 minutes | | retention 42.0 %120 minutes retention 29.3 %240 minute retention 7.0 %Normal gastric | | emptying T1/260-110 minutesNormal retention values;30 minutes 70-100%60 minutes | | 39-90%120 minutes 30-60%240 minutes 0-10%IMPRESSION: IMPRESSION:Normal gastric | | emptying.Dictated by: Massimo Acevesectronically Signed by: Massimo Alba on | | 10/16/2018 12:35 PM | |1.0 millicuries of sulfur colloid was combined with a standard meal and consumed by the pat ient. Routine imaging over 4 hours was then performed. | | | |FINDINGS: | |'s study demonstrates the following values: | |T1/2 emptying time 102.8 minutes. | |60 minutes retention 78.3 % | |90 minutes retention 42.0 % | |120 minutes retention 29.3 % | |240 minute retention 7.0 % | | | | | |Normal gastric emptying T1/2 | |60-110 minutes | | | |Normal retention values; | |30 minutes 70-100% | |60 minutes 39-90% | |120 minutes 30-60% | |240 minutes 0-10% | | | |IMPRESSION: | |IMPRESSION: | |Normal gastric emptying. | | | |Dictated by: Massimo Alba | | | | | + + + +---------+ + + | Performing | Address | City/State/Zipcode | Phone Number | | Organization | | | | + +---------+ + + | [facility] | | | | + +---------+ + + POC Glucose (10/16/2018 12:02 PM PDT) + +---------+ + + + | Component | Value | Ref Range | Performed | Pathologist | | | | | At | Signature | + +---------+ + + + | Glucose, | 139 (H) | 70 - 110 mg/dL | [...] + + | [facility] | [address] | [place] [address] | [phone] | | [facility] | | | | + + + + + Differential, Manual (10/16/2018 9:10 AM PDT) + + + + + + | Component | Value | Ref Range | Performed | Pathologist | | | | | At | Signature | + + + + + + | % Segmented | 29.0 (L) | 42.0 - 76.0 % | [...] + + + + | % | 22.0 (H) | 0.0 - 7.0 % | [facility] | | | Eosinophils | | | [facility] | | | | | | [facility] | | + + + + + + | % Basophils | 4.0 (H) | 0.0 - 2.0 % | [facility] | | | | | | [facility] [...] + + + + + | % Atypical | 3.0 | % | [facility] | | | Lymphocytes | | | [facility] | | | | [facility] | | | | | | [facility] | | + + + + + + | % Reactive | 9.0 | % | [facility] | | | Lymphocytes | | | [facility] | | | | [facility] | | | | | | [facility] | | + + + + + + | Absolute | 3.45 | 2.80 - 7.70 | [facility] | | | Segmented | | K/uL | [facility] | | | Neutrophils | | | [facility] | | | | | | LAB[facility]ATORY | | + + + + + + | Absolute | 0.83 (L) | 1.20 - 3.30 | [facility] | | | Lymphocytes | | K/uL | [facility] | | | | [facility] | | | | | | [facility] | | + + + + + + | Absolute | 1.31 (H) | 0.00 - 0.80 | [facility] | | | Monocytes | | K/uL | [facility] | [facility] | [facility] | | | | | | [facility] | | + + + + + + | Absolute | 2.62 (H) | 0.00 - 0.70 | [facility] | | | Eosinophils | | K/uL | [facility] | [facility] | | | | | | [facility] | | + + + + + + | Absolute | 0.48 (H) | 0.00 - 0.20 | [facility] | | | Basophils | | K/uL | [facility] | | | | | | [facility] | | + + + + + + | Absolute | 1.79 (H) | 0.00 - 0.15 | [facility] | | | Bands | | K/uL | [facility] | | | | | [facility] | | | | | | [facility] | | + + + + + + | Absolute | 0.36 | K/uL | [facility] | | | Atypical | | | [facility] | | | Lymphocytes | | | [facility] | | | | | | LAB[facility]ATORY | | + + + + + + | Absolute | 1.07 | K/uL | [facility] | | | Reactive | | | [facility] | | | Lymphocytes | | | [facility] | | | [...] + + + + | Platelet | Decreased (A) | Adequate | [facility] | | | Estimate | | | [facility] | | | | | [facility] | | | | | | [facility] | | + + + + + + | Hypochromas | Slight (A) | (none) | [facility] [...] + + + + + + | Stomatocyte | Slight (A) | None seen | [facility] | | | s | | | [facility] | | | | [facility] | | | | | | [facility] | | + + + + + + | Elliptocyte | Slight | | [facility] | | | s | | | [facility] | | [facility] | [facility] | | | | | | [facility] | | + + + + + + + + | Specimen | + + | Blood | + + + + + | Narrative | Performed At | + + + | Platelet morphology appears normal. | [facility] | [facility] | | | [facility] | + + + + + + + + | Performing | Address | City/State/Zipcode | Phone Number | | Organization | | | | + + + + + | [facility] | [address] | [place] [address] | [phone] | | [facility] | | | | + + + + + Calcium, Ionized (10/16/2018 9:10 AM PDT) + + + + + + | Component | Value | Ref Range | Performed | Pathologist | | | | | At | Signature | + + + + + + | Calcium, | 1.11 (L) | 1.17 - 1.32 | [facility] [...] + + | [facility] | [address] | [place] [address] | [phone] | | [facility] | | | | + + + + + CBC with Differential (10/16/2018 9:10 AM PDT) + + + + + [...] + + + + | RBC | 3.99 (L) | 4.36 - 5.83 | [facility] [...] + + + + | Hematocrit | 36.6 (L) | 39.0 - 51.9 % | [facility] | | | | | [facility] | | | | | | [facility] | | + + + + + + | MCV | 91.7 | 82.0 - 96.0 fL | [facility] [...] + + + + | RDW-CV | 19.6 (H) | 0.0 - 17.0 % | [...] + + | [facility] | [address] | [place] [address] | [phone] | | [facility] | | | | + + + + + POC Glucose (10/16/2018 7:41 AM PDT) + +---------+ + + + [...] + + | [facility] | [address] | [place] [address] | [phone] | | [facility] | | | | + + + + + POC Glucose (10/15/2018 8:27 PM PDT) + +---------+ + + + [...] + + | [facility] | [address] | [place] [address] | [phone] | | [facility] | | | | + + + + + POC Glucose (10/15/2018 4:28 PM PDT) + +---------+ + + + [...] + + | [facility] | [address] | [place] [address] | [phone] | | [facility] | | | | + + + + + POC Glucose (10/15/2018 1:16 PM PDT) + +---------+ + + + [...] + + | [facility] | [address] | [place] [address] | [phone] | | [facility] | | | | + + + + + POC Glucose (10/15/2018 11:38 AM PDT) + +---------+ + + + | Component | Value | Ref Range | Performed | Pathologist | | | | | At | Signature | + +---------+ + + + | Glucose, | 149 (H) | 70 - 110 mg/dL | [...] + + | [facility] | [address] | [place] [address] | [phone] | | [facility] | | | | + + + + + POC Glucose (10/15/2018 7:08 AM PDT) + +---------+ + + + [...] + + | [facility] | [address] | [place] [address] | [phone] | | [facility] | | | | + + + + + Differential, Manual (10/15/2018 5:20 AM PDT) + + + + [...] + + + + | % | 13.0 (H) | 0.0 - 7.0 % | [facility] | | | Eosinophils | | | [facility] | | [facility] | | | | | | [facility] | | + + + + + + | % Basophils | 3.0 (H) | 0.0 - 2.0 % | [facility] | | | | [facility] | | | | | | [facility] | | + + + + + + | % Bands | 13.0 (H) | 0.0 - 7.0 % | [facility] | [facility] | | | [facility] | | | | | | [facility] | | + + + + + + | Absolute | 5.34 | 2.80 - 7.70 | [facility] | | | Segmented | | K/uL | [facility] | | | Neutrophils | | | [facility] | | | | | | [facility]AT[facility] | | + + + + + + | Absolute | 1.31 | 1.20 - 3.30 | [facility] | | | Lymphocytes | | K/uL | [facility] | | | | | [facility] | | | | | | [facility] | | + + + + + + | Absolute | 1.09 (H) | 0.00 - 0.80 | [facility] | | | Monocytes | | K/uL | [facility] | | | | [facility] | | | | | | [facility] | | + + + + + + | Absolute | 1.42 (H) | 0.00 - 0.70 | [facility] | | | Eosinophils | | K/uL | [facility] | [facility] | | [facility] | | | | | | [facility] | | + + + + + + | Absolute | 0.33 (H) | 0.00 - 0.20 | [facility] | | | Basophils | | K/uL | [facility] | [facility] | | [facility] | | | | | | [facility] | | + + + + + + | Absolute | 1.42 (H) | 0.00 - 0.15 | [facility] [...] + + + + | Leukocyte | Present (A) | Not Present | [facility] | | | Toxic | | | [facility] | | | Vacuoles | | | [facility] | | | [...] + + + + + + | Dimas Cells | Slight (A) | (none) | [facility] | | | | | [facility] | | | [facility] | | | | | | [facility] | | + + + + + + | Clumped | Present [...] Performed At | + + + | Plasma cell observed. | [facility] | [facility] | | | [facility] | + + + + + + + + | Performing | Address | City/State/Zipcode | Phone Number | | Organization | | | | + + + + + | [facility] | [address] | [place] [address] | [phone] | | [facility] | | | | + + + + + Calcium, Ionized (10/15/2018 5:20 AM PDT) + + + + + + | Component | Value | Ref Range | Performed | Pathologist | | | | | At | Signature | + + + + + + | Calcium, | 1.11 (L) | 1.17 - 1.32 | [facility] [...] + + | [facility] | [address] | [place] [address] | [phone] | | [facility] | | | | + + + + + Basic Metabolic Panel (10/15/2018 5:20 AM PDT) + +---------+ + + + [...] +---------+ + + + | CO2 | 31 | 23 - 34 mmol/L | [facility] | [facility] | [facility] | | | | | | [facility] | | + +---------+ + + + | Anion Gap | 3 (L) | 7 - 16 mmol/L | [...] +---------+ + + + | BUN | 9 [...] | mL/min/1.73m2 | [facility] | [facility] | | | | | | [facility] | | + +---------+ + + + | Calcium | 8.2 (L) | 8.3 - 10.0 | [facility] | | | | | mg/dL | [facility] | | | | | [facility] | | | | | | [facility] | | + +---------+ + + + | BUN/Creatin | 9.4 | 7.0 - 24.0 | [facility] | [...] + + | [facility] | [address] | [place] [address] | [phone] | | [facility] | | | | + + + + + CBC with Differential (10/15/2018 5:20 AM PDT) + + + + + + | Component | Value | Ref Range | Performed | Pathologist | | | | | At | Signature | + + + + + + | WBC | 10.9 (H) | 4.6 - 10.5 K/uL | [facility] | [facility] | | | | | | [facility] | | + + + + + + | RBC | 3.78 (L) | 4.36 - 5.83 | [facility] [...] + + + + | Hematocrit | 35.5 (L) | 39.0 - 51.9 % | [facility] | [facility] | [facility] | | | | | | [facility] | | + + + + + + | MCV | 93.9 | 82.0 - 96.0 fL | [facility] | [facility] | | | | | | [facility] | | + + + + + + | MCH | 29.6 | 27.7 - 32.3 pg | [facility] | | | | | [facility] | | [facility] | | | | | | [facility] | | + + + + + + | MCHC | 31.5 (L) | 32.0 - 36.9 | [facility] | | | | | g/dL | [facility] | | | | | | [facility] | | | | | | [facility] | | + + + + + + | RDW-CV | 19.8 (H) | 0.0 - 17.0 % | [...] + + + + | MPV | 11.0 | 9.4 - 12.4 fL | [facility] [...] + + | [facility] | [address] | [place] [address] | [phone] | | [facility] | | | | + + + + + ECG - EXTERNAL SCAN (10/15/2018 12:00 AM PDT) + + + | Narrative | Performed At | + + + | Ordered by an | | | unspecified provider. | | + + + POC Glucose (10/14/2018 9:26 PM PDT) + +---------+ + + + | Component | Value | Ref Range | Performed | Pathologist | | | | | At | Signature | + +---------+ + + + | Glucose, | 184 (H) | 70 - 110 mg/dL | [...] + + | [facility] | [address] | [place] [address] | [phone] | | [facility] | | | | + + + + + POC Glucose (10/14/2018 5:01 PM PDT) + +---------+ + + [...] + + | [facility] | [address] | [place] [address] | [phone] | | [facility] | | | | + + + + + POC Glucose (10/14/2018 11:54 AM PDT) + +---------+ + + + | Component | Value | Ref Range | Performed | Pathologist | | | | | At | Signature | + +---------+ + + + | Glucose, | 236 (H) | 70 - 110 mg/dL | [...] + + | [facility] | [address] | [place] [address] | [phone] | | [facility] | | | | + + + + + FL Video Swallow w Speech (10/14/2018 9:55 AM PDT) + + | Specimen | + + | | + + + + + | Impressions | Performed At | + + + | IMPRESSION: 1. Mild irregularity of the distal esophagus. Given | [facility] | | the history of chronic reflux, direct visualization is recommended to | | | rule out an underlying malignancy or pre malignant state. 2. | | | Esophageal dysmotility. 3. No evidence of aspiration. Dictated | | | by: Massimo Alba Electronically Signed by: Massimo Alba on | | | 10/14/2018 10:06 AM | | + + + + + + | Narrative | Performed At | + + + | EXAMINATION: FL VIDEO SWALLOW W SPEECH HISTORY: concern for | [facility] | | silent aspiration with repeat pna COMPARISON STUDY: None | | | FINDINGS: Swallow study was performed in conjunction with speech | | | therapy. Has small amount of pooling within the vallecula and | | | piriform sinus. No aspiration. The course and caliber of the | | | esophagus is normal. Mild irregularity of the distal esophagus. No | | | focal stricture or mass lesion is identified. There is no hiatal | | | hernia. Mild spontaneous gastroesophageal reflux. Moderate mid and | | | distal esophageal dysmotility with associated tertiary contractions.. | | | FLUORO TIME: Time:5 seconds Number of images:787 | | + + + + + | Procedure Note | + + | Osito, Rad Results In - 10/14/2018 10:10 AM PDT EXAMINATION:FL VIDEO SWALLOW W | | SPEECHHISTORY:concern for silent aspiration with repeat pnaCOMPARISON | | STUDY:NoneFINDINGS:Swallow study was performed in conjunction with speech therapy.Has | | small amount of pooling within the vallecula and piriform sinus.No aspiration.The course | | and caliber of the esophagus is normal. Mild irregularity of the distal esophagus.No | | focal stricture or mass lesion is identified.There is no hiatal hernia.Mild spontaneous | | gastroesophageal reflux.Moderate mid and distal esophageal dysmotility with associated | | tertiary contractions..FLUORO TIME:Time:5 secondsNumber of images:787IMPRESSION: | | IMPRESSION:1. Mild irregularity of the distal esophagus. Given the history of chronic | | reflux, direct visualization is recommended to rule out an underlying malignancy or pre | | malignant state.2. Esophageal dysmotility.3. No evidence of aspiration.Dictated by: | | Massimo Acevesectronically Signed by: Massimo Alba on 10/14/2018 10:06 AM | |No aspiration. | |The course and caliber of the esophagus is normal. Mild irregularity of the distal esophag us. | |No focal stricture or mass lesion is identified. | |There is no hiatal hernia. | |Mild spontaneous gastroesophageal reflux. | |Moderate mid and distal esophageal dysmotility with associated tertiary contractions.. | | | |FLUORO TIME: | |Time:5 seconds | |Number of images:787 | | | |IMPRESSION: | |IMPRESSION: | |1. Mild irregularity of the distal esophagus. Given the history of chronic reflux, direct visualization is recommended to rule out an underlying malignancy or pre malignant state. | |2. Esophageal dysmotility. | |3. No evidence of aspiration. | | | |Dictated by: Massimo Alba | | | | | + + + +---------+ + + | Performing | Address | City/State/Zipcode | Phone Number | | Organization | | | | + +---------+ + + | [facility] | | | | + +---------+ + + POC Glucose (10/14/2018 7:36 AM PDT) + +---------+ + + + | Component | Value | Ref Range | Performed | Pathologist | | | | | At | Signature | + +---------+ + + + | Glucose, | 117 (H) | 70 - 110 mg/dL | [...] + + | [facility] | [address] | [place] [address] | [phone] | | [facility] | | | | + + + + + Wes, Manual (10/14/2018 5:35 AM PDT) + + + + + + | Component | Value | Ref Range | Performed | Pathologist | | | | | At | Signature | + + + + + + | % Segmented | 55.0 | 42.0 - 76.0 % | [facility] [...] + + + | % Monocytes | 3.0 | 3.0 - 13.0 % | [facility] | [facility] | [facility] | | | | | | [facility] | | + + + + + + | % | 13.0 (H) | 0.0 - 7.0 % | [facility] | | | Eosinophils | | | [facility] | [facility] | | | | | | [facility] | | + + + + + + | % Basophils | 2.0 | 0.0 - 2.0 % | [facility] | [facility] | | | [facility] | [facility] | | | | | | [facility] | | + + + + + + | % Bands | 14.0 (H) | 0.0 - 7.0 % | [...] + + + + + | % Atypical | 0.0 | % | [facility] | | | Lymphocytes | | | [facility] | | | | | | [facility] | | + + + + + + | % Reactive | 8.0 | % | [facility] | | | Lymphocytes | | | [facility] | | | | [facility] | | | | | | [facility] | | + + + + + + | Absolute | 6.16 | 2.80 - 7.70 | [facility] | | | Segmented | | K/uL | [facility] | | | Neutrophils | | | [facility] | | | | | | [facility]AT[facility] | | + + + + + + | Absolute | 0.45 (L) | 1.20 - 3.30 | [facility] | | | Lymphocytes | | K/uL | [facility] | [facility] | | [facility] | | | | | | [facility] | | + + + + + + | Absolute | 0.34 | 0.00 - 0.80 | [facility] | | | Monocytes | | K/uL | [facility] | [facility] | | [facility] | | | | | | [facility] | | + + + + + + | Absolute | 1.46 (H) | 0.00 - 0.70 | [facility] | | | Eosinophils | | K/uL | [facility] | [facility] | | [facility] | | | | | | [facility] | | + + + + + + | Absolute | 0.22 (H) | 0.00 - 0.20 | [facility] | | | Basophils | | K/uL | [facility] | [facility] | | | | | | [facility] | | + + + + + + | Absolute | 1.57 (H) | 0.00 - 0.15 | [facility] | | | Bands | | K/uL | [facility] | | | | | [facility] | | | | | | [facility] | | + + + + + + | Absolute | 0.11 | K/uL | [facility] | | | Metamyelocy | | | [facility] | | | [facility] | | | [facility] | | | | | | [facility] | | + + + + + + | Absolute | 0.00 | K/uL | [facility] | | | Atypical | | | [facility] | | | Lymphocytes | | | [facility] | | | | | | [facility] | | + + + + + + | Absolute | 0.90 | K/uL | [facility] | | | Reactive | | | [facility] | | | Lymphocytes | | | [facility] | | | [...] + + + + + + | Hypochromas | Slight (A) | (none) | [facility] [...] + + + + + + | Stomatocyte | Slight (A) | None seen | [facility] | | | s | | | [facility] | | | | | | [facility] | | | | | | [facility] | | + + + + + + | Oval | Occasional | | [facility] | | | Macrocytes | | | [facility] | | | | | [facility] | | | [facility] | | [facility] | | + + + + + + + + | Specimen | + + | Blood | + + + + + | Narrative | Performed At | + + + | Reactive lymphocyte population includes a few plasmacytoid cells, as | [facility] | | well as, some large granular lymphs. | [facility] | | | LAB[facility]ATORY | + + + + + + + + | Performing | Address | City/State/Zipcode | Phone Number | | Organization | | | | + + + + + | [facility] | [address] | [place] [address] | [phone] | | [facility] | | | | + + + + + Calcium, Ionized (10/14/2018 5:35 AM PDT) + + + + + + | Component | Value | Ref Range | Performed | Pathologist | | | | | At | Signature | + + + + + + | Calcium, | 1.09 (L) | 1.17 - 1.32 | [facility] [...] + + | [facility] | [address] | [place] [address] | [phone] | | [facility] | | | | + + + + + Magnesium (10/14/2018 5:35 AM PDT) + +-------+ + + + | Component | Value | Ref Range | Performed | Pathologist | | | | | At | Signature | + +-------+ + + + | Magnesium | 2.0 | 1.8 - 2.4 mg/dL | [facility] [...] + + | [facility] | [address] | [place] [address] | [phone] | | [facility] | | | | + + + + + Basic Metabolic Panel (10/14/2018 5:35 AM PDT) + +---------+ + + [...] +---------+ + + + | CO2 | 28 [...] +---------+ + + + | Glucose | 120 (H) | 70 - 110 mg/dL | [facility] | | | | | | [facility] | | + +---------+ + + + | BUN | 10 | 5 - 26 mg/dL | [facility] | [facility] | [facility] | [facility] | | | | | | [facility] | | + +---------+ + + + | Creatinine | 1.12 | 0.70 - 1.40 | [facility] | | | | | mg/dL | [facility] | | | | | [facility] | | | | | | [facility] | | + +---------+ + + + | eGFR if not | >60 | >=60 | [facility] | | | | | mL/min/1.73m2 | [facility] | [facility] | | | | | | [facility] | | + +---------+ + + + | Calcium | 8.5 | 8.3 - 10.0 | [facility] | | | | mg/dL | [facility] | | | | [facility] | | | | | | [facility] | | + +---------+ + + + | BUN/Creatin | 8.9 | 7.0 - 24.0 | [facility] | [...] + + | [facility] | [address] | [place] [address] | [phone] | | [facility] | | | | + + + + + CBC with Differential (10/14/2018 5:35 AM PDT) + + + + + + | Component | Value | Ref Range | Performed | Pathologist | | | | | At | Signature | + + + + + + | WBC | 11.2 (H) | 4.6 - 10.5 K/uL | [facility] | | | | | | [facility] | | + + + + + + | RBC | 4.02 (L) | 4.36 - 5.83 | [facility] [...] + + + + | Hematocrit | 37.8 (L) | 39.0 - 51.9 % | [facility] | | | | | | [facility] | | + + + + + + | MCV | 94.0 | 82.0 - 96.0 fL | [facility] | | | | | | [facility] | | + + + + + + | MCH | 29.6 | 27.7 - 32.3 pg | [facility] | [facility] | | | | | | [facility] | | + + + + + + | MCHC | 31.5 (L) | 32.0 - 36.9 | [facility] | | | | | g/dL | [facility] | | | | [facility] | | | | | | [facility] | | + + + + + + | RDW-CV | 19.8 (H) | 0.0 - 17.0 % | [facility] | [facility] | | | | | | [facility] | | + + + + + + | Platelet | 175 | 150 - 450 K/uL | [facility] [...] + + + + | % | 57.0 | 42.0 - 76.0 % | [facility] | | | Neutrophils | | | [facility] | [facility] | | | | | | [facility] | | + + + + + + | % | 13.4 (L) | 20.0 - 40.0 % | [facility] | | | Lymphocytes | | | [facility] | | | | | | [facility] | | + + + + + + | % Monocytes | 9.5 | 3.0 - 13.0 % | [facility] | | | | | [facility] | | | | | | [facility]ATORY | | + + + + + + | % | 17.3 (H) | 0.0 - 7.0 % | [facility] | | | Eosinophils | | | [facility] | | | | | | LABORATORY | | + + + + + + | % Basophils | 1.1 | 0.0 - 2.0 % | [facility] [...] + + + + | Absolute | 6.37 | 2.80 - 7.70 | [facility] | | | Neutrophils | | K/uL | [facility] | | | | | | LAB[facility]ATORY | | + + + + + + | Absolute | 1.49 | 1.20 - 3.30 | [facility] | | | Lymphocytes | | K/uL | [facility] | | | | | | LAB[facility]ATORY | | + + + + + + | Absolute | 1.06 (H) | 0.00 - 0.80 | [facility] | | | Monocytes | | K/uL | [facility] | | | | | | LAB[facility]ATORY | | + + + + + + | Absolute | 1.93 (H) | 0.00 - 0.70 | [facility] | | | Eosinophils | | K/uL | [facility] | | | | | | LAB[facility]ATORY | | + + + + + + | Absolute | 0.12 | 0.00 - 0.20 | [facility] | [...] + + | [facility] | [address] | [place] [address] | [phone] | | [facility] | | | | + + + + + POC Glucose (10/13/2018 8:08 PM PDT) + +---------+ + + + [...] + + | [facility] | [address] | [place] [address] | [phone] | | [facility] | | | | + + + + + POC Glucose (10/13/2018 4:19 PM PDT) + +---------+ + + + | Component | Value | Ref Range | Performed | Pathologist | | | | | At | Signature | + +---------+ + + + | Glucose, | 175 (H) | 70 - 110 mg/dL | [...] + + | [facility] | [address] | [place] [address] | [phone] | | [facility] | | | | + + + + + T4, Free (10/13/2018 2:03 PM PDT) + +---------+ + + + | Component | Value | Ref Range | Performed | Pathologist | | | | | At | Signature | + +---------+ + + + | FT4 | 0.4 (L) | 0.8 - 1.5 ng/dL | [...] + + | [facility] | [address] | [place] [address] | [phone] | | [facility] | | | | + + + + + TSH, Reflex Free T4 (10/13/2018 2:03 PM PDT) + + + + + + | Component | Value | Ref Range | Performed | Pathologist | | | | | At | Signature | + + + + + + | TSH | 43.69 (H) | 0.36 - 3.74 | [facility] [...] + + | [facility] | [address] | [place] [address] | [phone] | | [facility] | | | | + + + + + Calcium, Ionized (10/13/2018 2:03 PM PDT) + + + + + + | Component | Value | Ref Range | Performed | Pathologist | | | | | At | Signature | + + + + + + | Calcium, | 1.05 (L) | 1.17 - 1.32 | [facility] [...] + + | [facility] | [address] | [place] [address] | [phone] | | [facility] | | | | + + + + + POC Glucose (10/13/2018 11:43 AM PDT) + +---------+ + + + | Component | Value | Ref Range | Performed | Pathologist | | | | | At | Signature | + +---------+ + + + | Glucose, | 251 (H) | 70 - 110 mg/dL | [...] + + | [facility] | [address] | [place] [address] | [phone] | | [facility] | | | | + + + + + POC Glucose (10/13/2018 7:31 AM PDT) + +---------+ + + + [...] + + | [facility] | [address] | [place] [address] | [phone] | | [facility] | | | | + + + + + Hemoglobin A1C (10/13/2018 5:20 AM PDT) + +---------+ + + + | Component | Value | Ref Range | Performed | Pathologist | | | | | At | Signature | + +---------+ + + + | Hemoglobin | 8.7 (H) | 4.5 - 6.2 % | [facility] | | | A1[facility] | | | [facility] | | [facility] | | | [facility] | | + +---------+ + + + | Estimated | 203 | mg/dL | [facility] | | | [...] + + + | [facility] | [address] | [place] [address] | [phone] | | [facility] | | | | + + + + + Lactic Acid (10/13/2018 5:20 AM PDT) + +-------+ + + + | Component | Value | Ref Range | Performed | Pathologist | | | | | At | Signature | + +-------+ + + + | Lactate | 1.7 | 0.4 - 2.1 | [facility] | [...] + + | [facility] | [address] | [place] [address] | [phone] | | [facility] | | | | + + + + + Magnesium (10/13/2018 5:20 AM PDT) + +---------+ + + + [...] + + | [facility] | [address] | [place] [address] | [phone] | | [facility] | | | | + + + + + Basic Metabolic Panel (10/13/2018 5:20 AM PDT) + +---------+ + + + [...] +---------+ + + + | K | 3.7 [...] +---------+ + + + | CO2 | 32 | 23 - 34 mmol/L | [facility] | | | | [facility] | | + +---------+ + + + | Anion Gap | 1 (L) | 7 - 16 mmol/L | [facility] | | | [facility] | | + +---------+ + + + | Glucose | 283 (H) | 70 - 110 mg/dL | [facility] | | | [facility] | | + +---------+ + + + | BUN | 10 | 5 - 26 mg/dL | [facility] | | | | [facility] | | + +---------+ + + + | Creatinine | 0.98 | 0.70 - 1.40 | [facility] | | | | | mg/dL | [facility] | | | | | [facility] | | + +---------+ + + + | eGFR if not | >60 | >=60 | [facility] | | | | | mL/min/1.73m2 | [facility] | | [facility] | | | | | | [facility] | | + +---------+ + + + | Calcium | 7.7 (L) | 8.3 - 10.0 | [facility] | | | | | mg/dL | [facility] | | | | [facility] | | + +---------+ + + + | BUN/Creatin | 10.2 | 7.0 - 24.0 | [facility] | [...] + + | [facility] | [address] | [place] [address] | [phone] | | [facility] | | | | + + + + + CBC with Differential (10/13/2018 5:20 AM PDT) + + + + + + | Component | Value | Ref Range | Performed | Pathologist | | | | | At | Signature | + + + + + + | WBC | 9.7 | 4.6 - 10.5 K/uL | [facility] | | | | | [facility] | | | | [facility] | | + + + + + + | RBC | 3.67 (L) | 4.36 - 5.83 | [facility] [...] + + + + | Hematocrit | 34.2 (L) | 39.0 - 51.9 % | [...] + + + + | MCHC | 32.2 | 32.0 - 36.9 | [facility] | | | | | g/dL | [facility] | | | | | [facility] | | + + + + + + | RDW-CV | 19.5 (H) | 0.0 - 17.0 % | [facility] | | | | | [facility] | | | | | | [facility] | | + + + + + + | Platelet | 171 | 150 - 450 K/uL | [facility] [...] + + + + | % | 54.2 | 42.0 - 76.0 % | [facility] | | | Neutrophils | | | [facility] | | | | | | [facility] | | + + + + + + | % | 9.5 (L) | 20.0 - 40.0 % | [...] + + + + | % | 20.1 (H) | 0.0 - 7.0 % | [facility] | | | Eosinophils | | | [facility] | | | | | [facility] | | + + + + + + | % Basophils | 1.1 | 0.0 - 2.0 % | [facility] | | | | | | [facility] | | | | [facility] | | + + + + + + | % Immature | 4.1 (H) | 0.0 - 0.5 % | [facility] | | | Granulocyte | | | [facility] | [facility] | [facility] | | | | | | [facility] | | + + + + + + | Absolute | 5.22 | 2.80 - 7.70 | [facility] | | | Neutrophils | | K/uL | [facility] | | | | | | [facility] | | + + + + + + | Absolute | 0.92 (L) | 1.20 - 3.30 | [facility] | | | Lymphocytes | | K/uL | [facility] | | | | | | [facility] | | + + + + + + | Absolute | 1.06 (H) | 0.00 - 0.80 | [facility] | | | Monocytes | | K/uL | [facility] | | | | | | [facility] | | + + + + + + | Absolute | 1.94 (H) | 0.00 - 0.70 | [facility] [...] + + + | Absolute | 0.40 (H) | 0.00 - 0.15 | [facility] [...] + + | [facility] | [address] | [place] [address] | [phone] | | [facility] | | | | + + + + + POC Glucose (10/12/2018 8:30 PM PDT) + +---------+ + + + | Component | Value | Ref Range | Performed | Pathologist | | | | | At | Signature | + +---------+ + + + | Glucose, | 286 (H) | 70 - 110 mg/dL | [...] + + | [facility] | [address] | [place] [address] | [phone] | | [facility] | | | | + + + + + Glucose, Random (10/12/2018 5:14 PM PDT) + +---------+ + + + | Component | Value | Ref Range | Performed | Pathologist | | | | | At | Signature | + +---------+ + + + | Glucose | 366 (H) | 70 - 110 [...] + + | [facility] | [address] | [place] [address] | [phone] | | [facility] | | | | + + + + + CT Angiogram Pulmonary w Contrast (10/12/2018 3:50 PM PDT) + + | Specimen | + + | | + + + + + | Impressions | Performed At | + + + | IMPRESSION: 1. New bibasilar infectious versus aspiration | [facility] | | pneumonia. 2. Mediastinal and hilar lymphadenopathy is mildly | | | improved. Additionally there is mild interval decreased size of the | | | left basilar lung nodule. Query infectious versus inflammatory | | | process. Continued surveillance is recommended. 3. The left basilar | | | juxtapleural nodule of concern on the previous exam is obscured by | | | the basilar pneumonia. Attention to this on subsequent follow-up. | | | 4. Coronary artery disease. 5. Trace pericardial effusion. 6. | | | Cardiomegaly. 7. The results of the study were discussed with | | | Yuli Sanford for SHAHEEN HOWARD at 15:58 Dictated by: | | | Massimo Alba Electronically Signed by: Massimo Alba on | | | 10/12/2018 3:59 PM | | + + + + + + | Narrative | Performed At | + + + | EXAMINATION: CT ANGIOGRAM PULMONARY W CONTRAST HISTORY: | [facility] | | SHORTNESS OF BREATH, worsening effusion with ling nodules. | | | COMPARISON STUDY: September 30, 2018, October 12, 2018 TECHNIQUE: 1.25 mm | | | axial slices were acquired through the lungs during an arterial phase | | | of contrast. Multiplanar MIP reconstructions were performed. | | | There was no post contrast reaction. DOSE REPORT: Total exam | | | DLP 700.98 mGy cm. Automated exposure control was utilized. | | | FINDINGS: The bolus of contrast is adequate. No pulmonary artery | | | filling defect. Great vessel caliber is normal. Mediastinum and | | | hilum demonstrate prominent adenopathy, similar to the previous exam | | | from September 2018. Overall size of lymph nodes have decreased. For | | | example, right hilar node on image number 107 has a short diameter of | | | 1.5 cm compared to previous 2.0 cm. Subcarinal marshall cluster has a | | | short diameter of 2.8 cm compared to previous 3.0 cm. Other | | | paratracheal and AP window nodes are similar to slightly smaller in | | | size. Heart size is stable. Trace pericardial effusion. Coronary | | | arteries have scattered atherosclerosis. No pleural effusion. No | | | pneumothorax. Lung parenchyma demonstrates new bibasilar airspace | | | opacities, left greater than right. Right lower lobe lung nodule on | | | image number 109 measures up to 9 mm. Previously this measured up to | | | 12 mm. The juxtapleural nodule in the left lower lobe on image | | | number 144 of the previous exam is not re-evaluated due to the basilar | | | opacity. Bilateral lower lobe bronchial wall thickening. There is | | | aerated fluid or debris dependently within the midesophagus. Limited | | | evaluation of abdominal viscera. Small hiatal hernia. No acute bone | | | process. | | + + + + + | Procedure Note | + + | Osito, Rad Results In - 10/12/2018 4:02 PM PDT EXAMINATION:CT ANGIOGRAM PULMONARY W | | CONTRASTHISTORY:SHORTNESS OF BREATH, worsening effusion with ling nodules.COMPARISON | | STUDY:September 30, 2018, October 12, 2018TECHNIQUE:1.25 mm axial slices were acquired through | | the lungs during an arterial phase of contrast. Multiplanar MIP reconstructions were | | performed. There was no post contrast reaction.DOSE REPORT: Total exam DLP 700.98 mGy | | cm. Automated exposure control was utilized.FINDINGS:The bolus of contrast is | | adequate.No pulmonary artery filling defect.Great vessel caliber is normal.Mediastinum | | and hilum demonstrate prominent adenopathy, similar to the previous exam from September 2018. | | Overall size of lymph nodes have decreased. For example, right hilar node on image | | number 107 has a short diameter of 1.5 cm compared to previous 2.0 cm. Subcarinal marshall | | cluster has a short diameter of 2.8 cm compared to previous 3.0 cm. Other paratracheal | | and AP window nodes are similar to slightly smaller in size.Heart size is stable.Trace | | pericardial effusion.Coronary arteries have scattered atherosclerosis.No pleural | | effusion.No pneumothorax.Lung parenchyma demonstrates new bibasilar airspace opacities, | | left greater than right. Right lower lobe lung nodule on image number 109 measures up | | to 9 mm. Previously this measured up to 12 mm. The juxtapleural nodule in the left | | lower lobe on image number 144 of the previous exam is not re-evaluated due to the | | basilar opacity. Bilateral lower lobe bronchial wall thickening.There is aerated fluid | | or debris dependently within the midesophagus.Limited evaluation of abdominal viscera. | | Small hiatal hernia.No acute bone process.IMPRESSION: IMPRESSION:1. New bibasilar | | infectious versus aspiration pneumonia.2. Mediastinal and hilar lymphadenopathy is | | mildly improved. Additionally there is mild interval decreased size of the left basilar | | lung nodule. Query infectious versus inflammatory process. Continued surveillance is | | recommended.3. The left basilar juxtapleural nodule of concern on the previous exam is | | obscured by the basilar pneumonia. Attention to this on subsequent follow-up.4. | | Coronary artery disease.5. Trace pericardial effusion.6. Cardiomegaly.7. The results of | | the study were discussed with Yuli Sanford for SHAHEEN COLLAZOON at | | 15:58Dictated by: Massimo Hutchinsonam | | 3:59 PM | | number 144 of the previous exam is not re-evaluated due to the basilar opacity. Bilateral lower lobe bronchial wall thickening. | |There is aerated fluid or debris dependently within the midesophagus. | |Limited evaluation of abdominal viscera. Small hiatal hernia. | |No acute bone process. | | | |IMPRESSION: | |IMPRESSION: | |1. New bibasilar infectious versus aspiration pneumonia. | |2. Mediastinal and hilar lymphadenopathy is mildly improved. Additionally there is mild in terval decreased size of the left basilar lung nodule. Query infectious versus inflammatory process. Continued surveillance is recommended. | |3. The left basilar juxtapleural nodule of concern on the previous exam is obscured by the basilar pneumonia. Attention to this on subsequent follow-up. | |4. Coronary artery disease. | |5. Trace pericardial effusion. | |6. Cardiomegaly. | |7. The results of the study were discussed with Yuli Sanford for SHAHEEN HOWARD at 15:58 | | | |Dictated by: Massimo Alba | | | | | + + + +---------+ + + | Performing | Address | City/State/Zipcode | Phone Number | | Organization | | | | + +---------+ + + | [facility] | | | | + +---------+ + + Urinalysis with Microscopic with Culture if Indicated (10/12/2018 2:38 PM PDT) + + + + + [...] - 1.030 | [facility] | | | [place] | | | [facility] | | | [...] + + + + | Leukocyte | 100 jony/uL (A) | Negative | [facility] | [...] + + | [facility] | [address] | [place] [address] | [phone] | | [facility] | | | | + + + + + XR Chest PA and Lateral (10/12/2018 2:00 PM PDT) + + | Specimen | + + | | + + + + + | Impressions | Performed At | + + + | IMPRESSION: 1. Left lower lobe pneumonia with small parapneumonic | [facility] | | effusion. Dictated by: Massimo Alba | | + + + + + + | Narrative | Performed At | + + + | EXAMINATION: XR CHEST PA AND LATERAL HISTORY: SHORTNESS OF | [facility] | | BREATH COMPARISON STUDY: October 02, 2018 FINDINGS: The lungs | | | are hypoventilated. There is hazy opacity laterally at the left lung | | | base. Blunting of the left costophrenic angle suggesting small | | | pleural effusion. No pneumothorax. Cardiomediastinal silhouette is | | | normal. No acute osseous process. | | + + + + + | Procedure Note | + + | Osito, Rad Results In - 10/12/2018 2:22 PM PDT EXAMINATION:XR CHEST PA AND | | LATERALHISTORY:SHORTNESS OF BREATHCOMPARISON STUDY:October 02, 2018FINDINGS:The lungs are | | hypoventilated. There is hazy opacity laterally at the left lung base. Blunting of the | | left costophrenic angle suggesting small pleural effusion. No pneumothorax. | | Cardiomediastinal silhouette is normal. No acute osseous process.IMPRESSION: | | IMPRESSION:1. Left lower lobe pneumonia with small parapneumonic effusion.Dictated by: | | Massimo Hutchinsonam | |October 02, 2018 | | | |FINDINGS: | |The lungs are hypoventilated. There is hazy opacity laterally at the left lung base. Blun ting of the left costophrenic angle suggesting small pleural effusion. No pneumothorax. Ca rdiomediastinal silhouette is normal. No acute osseous process. | | | |IMPRESSION: | |IMPRESSION: | |1. Left lower lobe pneumonia with small parapneumonic effusion. | | | | | |Dictated by: Massimo Alba | | | | | + + + +---------+ + + | Performing | Address | City/State/Zipcode | Phone Number | | Organization | | | | + +---------+ + + | [facility] | | | | + +---------+ + + ECG 12 lead (10/12/2018 1:20 PM PDT) + + | Specimen | + + | | + + + + + | Narrative | Performed At | + + + | Heart Rate: 83 | [facility] | | bpmQRS Interval: 90 msQT Interval: 372 msQTC Interval: 437 msP [place]: | [facility] | | 15 degQRS [place]: -25 degT Wave [place]: 17 degP-R Interval: 184 msec- | | | OTHERWISE NORMAL ECG -SINUS RHYTHM [Now Present]BORDERLINE LEFT AXIS | | | DEVIATION [Insig. Chg.]SIGNIFICANT RHYTHM AND ECG CONTOUR CHANGES[Now | | | Absent] PROBABLE INFERIOR INFARCT, AGE INDETERMINATE[Now Absent] SINUS | | | TACHYCARDIA | | |P-R Interval: 184 msec | | |- OTHERWISE NORMAL ECG - | | |SINUS RHYTHM [Now Present] | | |BORDERLINE LEFT AXIS DEVIATION [Insig. Chg.] | | |SIGNIFICANT RHYTHM AND ECG CONTOUR CHANGES | | |[Now Absent] PROBABLE INFERIOR INFARCT, AGE INDETERMINATE | | |[Now Absent] SINUS TACHYCARDIA | | + + + + +---------+ + + | Performing | Address | City/State/Zipcode | Phone Number | | Organization | | | | + +---------+ + + | [facility] | | | | + +---------+ + + Differential, Manual (10/12/2018 1:20 PM PDT) + + + + + + | Component | Value | Ref Range | Performed | Pathologist | | | | | At | Signature | + + + + + + | % Segmented | 54.0 | 42.0 - 76.0 % | [facility] | | | | | | [facility] | | | Neutrophils | | | [facility] | | | | | | [facility]AT[facility] | | + + + + + + | % | 5.0 (L) | 20.0 - 40.0 % | [...] + + + | % | 14.0 (H) | 0.0 - 7.0 % | [facility] | | | Eosinophils | | | [facility] | | | | [facility] | | | | | | [facility] | | + + + + + + | % Basophils | 8.0 (H) | 0.0 - 2.0 % | [facility] | | | | | | [facility] | | | | [facility] | | | | | | [facility] | | + + + + + + | % Bands | 8.0 (H) | 0.0 - 7.0 % | [...] + + + + | Absolute | 6.48 | 2.80 - 7.70 | [facility] | | | Segmented | | K/uL | [facility] | | | Neutrophils | | | [facility] | | | | | | LAB[facility]ATORY | | + + + + + + | Absolute | 0.60 (L) | 1.20 - 3.30 | [facility] | | | Lymphocytes | | K/uL | [facility] | | | | [facility] | | | | | | [facility] | | + + + + + + | Absolute | 1.08 (H) | 0.00 - 0.80 | [facility] | | | Monocytes | | K/uL | [facility] | [facility] | | | | | | [facility] | | + + + + + + | Absolute | 1.68 (H) | 0.00 - 0.70 | [facility] | | | Eosinophils | | K/uL | [facility] | [facility] | | [facility] | | | | | | [facility] | | + + + + + + | Absolute | 0.96 (H) | 0.00 - 0.20 | [facility] | | | Basophils | | K/uL | [facility] | | | | [facility] | | | | | | [facility] | | + + + + + + | Absolute | 0.96 (H) | 0.00 - 0.15 | [facility] | | | Bands | | K/uL | [facility] | | | | | [facility] | | | | | | [facility] | | + + + + + + | Absolute | 0.12 | K/uL | [facility] | | | Metamyelocy | | | [facility] | | | [facility] | | | [facility] | | | | | | [facility] | | + + + + + + | Absolute | 0.12 | K/uL | [facility] | | | [...] + + | [facility] | [address] | [place] [address] | [phone] | | [facility] | | | | + + + + + Lactic Acid (10/12/2018 1:20 PM PDT) + + + + + + | Component | Value | Ref Range | Performed | Pathologist | | | | | At | Signature | + + + + + + | Lactate | 3.4 (HH) | 0.4 - 2.1 | [facility] [...] + + | [facility] | [address] | [place] [address] | [phone] | | [facility] | | | | + + + + + Culture, Blood (10/12/2018 1:20 PM PDT) + + + + + [...] + + | [facility] | [address] | [place] [address] | [phone] | | [facility] | | | | + + + + + B Type Natriuretic Peptide (10/12/2018 1:20 PM PDT) + +-------+ + + + | Component | Value | Ref Range | Performed | Pathologist | | | | | At | Signature | + +-------+ + + + | NT-proBNP | 185 | <=450 pg/mL | [facility] | | [...] + + | [facility] | [address] | [place] [address] | [phone] | | [facility] | | | | + + + + + Troponin I (10/12/2018 1:20 PM PDT) + +-------+ + + + [...] + + | [facility] | [address] | [place] [address] | [phone] | | [facility] | | | | + + + + + Comprehensive Metabolic Panel (10/12/2018 1:20 PM PDT) + + + + + [...] + + + + | Glucose | 469 (HH) | 70 - 110 mg/dL | [...] + + + + | Creatinine | 1.25 | 0.70 - 1.40 | [facility] | | | | | mg/dL | [facility] | | | | | [facility] | | | | | | [facility] | | + + + + + + | eGFR if not | 56 (L)Comment: | >=60 | [facility] | | | | GLOMERULAR FILTRATION | mL/min/1.73m2 | [facility] | | | [place] | RATE,ESTIMATED | | [facility] | | | | mL/min/1.79k9Kqnd than | | LABORATORY | | | [...] + + + + | Calcium | 8.5 | 8.3 - 10.0 | [facility] | [...] + + + + | Total | 6.4 (L) | 6.6 - 8.5 g/dL | [facility] | | | Protein | | | [facility] | | | | | | [facility] | | | | | | [facility] | | + + + + + + | AST | 12 | 0 - 38 U/L | [facility] | | | | | | [facility] | | | | [facility] | | | | | | [facility] | | + + + + + + | ALT | 32 | 16 - 63 U/L | [facility] [...] + + | Globulin | 3.7 | 2.4 - 4.5 g/dL | [facility] [...] + + + + | BUN/Creatin | 12.0 | 7.0 - 24.0 | [facility] | [...] + + | [facility] | [address] | [place] [address] | [phone] | | [facility] | | | | + + + + + CBC with Differential (10/12/2018 1:20 PM PDT) + + + + + + | Component | Value | Ref Range | Performed | Pathologist | | | | | At | Signature | + + + + + + | WBC | 12.0 (H) | 4.6 - 10.5 K/uL | [facility] | | | | | [facility] | | | | | | [facility] | | + + + + + + | RBC | 3.82 (L) | 4.36 - 5.83 | [facility] | | | | | M/uL | [facility] | [facility] | [facility] | | | | | | [facility] | | + + + + + + | Hemoglobin | 11.3 (L) | 13.1 - 17.4 | [facility] | | | | | g/dL | [facility] | | | | | | [facility] | | | | | | [facility] | | + + + + + + | Hematocrit | 35.5 (L) | 39.0 - 51.9 % | [...] + + + + | MCH | 29.6 | 27.7 - 32.3 pg | [facility] | | | | | | [facility] | | | | | | [facility] | | + + + + + + | MCHC | 31.8 (L) | 32.0 - 36.9 | [facility] | | | | | g/dL | [facility] | | | | [facility] | | | | | | [facility] | | + + + + + + | RDW-CV | 19.6 (H) | 0.0 - 17.0 % | [facility] | | | | | [facility] | | | | | | [facility] | | + + + + + + | Platelet | 182 | 150 - 450 K/uL | [facility] [...] + + | [facility] | [address] | [place] [address] | [phone] | | [facility] | | | | + + + + + Culture, Blood (10/12/2018 1:05 PM PDT) + + + + + [...] + + | [facility] | [address] | [place] [address] | [phone] | | [facility] | | | | + + + + + documented in this encounter Visit Diagnoses + + | Diagnosis | + + | Pneumonia due to infectious organism - Primary | + + | Aspiration pneumonia of both lower lobes, unspecified aspiration pneumonia type (HCC) | + + | Type 2 diabetes mellitus with hyperglycemia, with long-term current use of insulin | | (HCC) | + + | Elevated lactic acid level Other nonspecific abnormal serum enzyme levels | + + | Sepsis, due to unspecified organism | + + | COPD, mild (HCC) Chronic airway obstruction, not elsewhere classified | + + | Mediastinal lymphadenopathy Enlargement of lymph nodes | + + | History of arterial ischemic stroke Transient ischemic attack (TIA), and cerebral | | infarction without residual deficits | + + | Gastroesophageal reflux disease without esophagitis Esophageal reflux | + + | Acquired hypothyroidism Unspecified [...] | | | + +--------+ +--------+------+------+ | acetaminophen (TYLENOL) tablet | Given | 10/16/19 | 650 mg | | | | 650 mg 650 mg, Oral, EVERY 6 | | 19 7:14 | | | | | HOURS PRN, Pain, Fever, | | PM PDT | | | | | Headaches, or fever >= 38.6 C | | | | | | | (101.5 F), Starting 10/12/18 at | | | | | | | 2007 | | | | | | + +--------+ +--------+------+------+ +-------+ +--------+---+---+ | Given | 10/14/19 | 650 mg | | | | | 19 6:23 | | | | | | PM PDT | | | | +-------+ +--------+---+---+ +---+---+ | | | +---+---+ + +-------+ +--------+---+---+ | albuterol 2.5 mg/3 mL nebulizer | Given | 10/16/19 | 2.5 mg | | | | solution 2.5 mg 2.5 mg, | | 19 9:07 | | | | | Nebulization, RT EVERY 4 HOURS | | AM PDT | | | | | PRN, Shortness of Breath, | | | | | | | Starting 10/13/18 at 1020, RT | | | | | | | will administer., | | | | | | + +-------+ +--------+---+---+ +-------+ +--------+---+---+ | Given | 10/16/19 | 2.5 mg | | | | | 19 6:18 | | | | | | AM PDT | | | | +-------+ +--------+---+---+ | Given | 10/15/19 | 2.5 mg | | | | | 19 12:50 | | | | | | AM PDT | | | | +-------+ +--------+---+---+ +---+---+ | | | +---+---+ + +-------+ +-------+---+---+ | albuterol-ipratropium 2.5-0.5 | Given | 10/20/19 | 3 mLs | | | | mg/3 mL nebulizer solution 3 mL | | 19 12:51 | | | | | 3 mL, Nebulization, RT Q6H, First | | PM PDT | | | | | dose on [place] 10/15/18 at 0930 | | | | | | + +-------+ +-------+---+---+ +-------+ +-------+---+---+ | Given | 10/20/19 | 3 mLs | | | | | 19 7:07 | | | | | | AM PDT | | | | +-------+ +-------+---+---+ | Given | 10/20/19 | 3 mLs | | | | | 19 1:26 | | | | | | AM PDT | | | | +-------+ +-------+---+---+ +---+---+ | | | +---+---+ + +-------+ +------+---+---+ | amLODIPine (NORVASC) tablet 5 | Given | 10/20/19 | 5 mg | | | | mg 5 mg, Oral, EVERY MORNING, | | 19 9:07 | | | | | First dose on Fri10/12/18 at 2030 | | AM PDT | | | | + +-------+ +------+---+---+ +-------+ +------+---+---+ | Given | 10/19/19 | 5 mg | | | | | 19 8:50 | | | | | | AM PDT | | | | +-------+ +------+---+---+ | Given | 10/18/19 | 5 mg | | | | | 19 9:39 | | | | | | AM PDT | | | | +-------+ +------+---+---+ +---+---+ | | | +---+---+ + +-------+ + +---+---+ | amoxicillin-clavulanate | Given | 10/20/19 | 1 tablet | | | | (AUGMENTIN) 875-125 mg per tablet | | 19 9:06 | | | | | 1 tablet 1 tablet, Oral, 2 | | AM PDT | | | | | TIMES DAILY, First dose on Fri | | | | | | | 10/16/18 at 2100, Indications: | | | | | | | Pneumonia | | | | | | + +-------+ + +---+---+ +-------+ + +---+---+ | Given | 10/19/19 | 1 tablet | | | | | 19 9:06 | | | | | | PM PDT | | | | +-------+ + +---+---+ | Given | 10/19/19 | 1 tablet | | | | | 19 8:50 | | | | | | AM PDT | | | | +-------+ + +---+---+ +---+---+ | | | +---+---+ + +-------+ +-------+---+---+ | aspirin chewable tablet 81 mg | Given | 10/20/19 | 81 mg | | | | 81 mg, Oral, DAILY, First dose on | | 19 9:06 | | | | | 10/13/18 at 0900 | | AM PDT | | | | + +-------+ +-------+---+---+ +-------+ +-------+---+---+ | Given | 10/19/19 | 81 mg | | | | | 19 8:50 | | | | | | AM PDT | | | | +-------+ +-------+---+---+ | Given | 10/18/19 | 81 mg | | | | | 19 9:40 | | | | | | AM PDT | | | | +-------+ +-------+---+---+ +---+---+ | | | +---+---+ + +-------+ +-------+---+---+ | atorvaSTATin (LIPITOR) tablet | Given | 10/19/19 | 10 mg | | | | 10 mg 10 mg, Oral, NIGHTLY, | | 19 9:06 | | | | | First dose on Fri10/12/18 at 2100 | | PM PDT | | | | + +-------+ +-------+---+---+ +-------+ +-------+---+---+ | Given | 10/18/19 | 10 mg | | | | | 19 9:00 | | | | | | PM PDT | | | | +-------+ +-------+---+---+ | Given | 10/17/19 | 10 mg | | | | | 19 9:32 | | | | | | PM PDT | | | | +-------+ +-------+---+---+ +---+---+ | | | +---+---+ + +-------+ +-------+---+---+ | barium (E-Z-PAQUE) 96% contrast | Given | 10/15/19 | 176 g | | | | suspension 176 g 176 g, Oral, | | 19 10:15 | | | | | ONCE, 10/14/18 at 1015, For 1 | | AM PDT | | | | | dose, Dru barrera, Radiology | | | | | | + +-------+ +-------+---+---+ +---+---+ | | | +---+---+ + +---------+ +-----+ +--------+ | calcium gluconate 1 g in sodium | New Bag | 10/14/19 | 1 g | 60 mL/hr | Right | | chloride 0.9% 50 mL IVPB 1 g, | | 19 6:14 | | | Arm | | Intravenous, Administer over 60 | | PM PDT | | | | | Minutes, ONCE, [facility] 10/13/18 at | | | | | | | 1800, For 1 dose | | | | | | + +---------+ +-----+ +--------+ +---+---+ | | | +---+---+ + +---------+ +-----+ +---+ | calcium gluconate 2 g in sodium | New Bag | 10/19/19 | 2 g | 70 mL/hr | | | chloride 0.9% 50 mL IVPB 2 g, | | 19 8:49 | | | | | Intravenous, Administer over 60 | | AM PDT | | | | | Minutes, 2 TIMES DAILY, First | | | | | | | dose on 10/17/18 at 2100, For | | | | | | | 2 doses | | | | | | + +---------+ +-----+ +---+ +---------+ +-----+ +---+ | New Bag | 10/18/19 | 2 g | 70 mL/hr | | | | 19 9:11 | | | | | | PM PDT | | | | +---------+ +-----+ +---+ +---+---+ | | | +---+---+ + +---------+ +-----+ +---+ | calcium gluconate in saline 1 | New Bag | 10/15/19 | 1 g | 50 mL/hr | | | g/50 mL IVPB 1 g 1 g, | | 19 10:37 | | | | | Intravenous, Administer over 60 | | AM PDT | | | | | Minutes, ONCE, [facility] 10/14/18 at | | | | | | | 0845, For 1 dose | | | | | | + +---------+ +-----+ +---+ +---+---+ | | | +---+---+ + +---------+ +-----+ +---+ | calcium gluconate in saline 1 | New Bag | 10/16/19 | 1 g | 50 mL/hr | | | g/50 mL IVPB 1 g 1 g, | | 19 9:23 | | | | | Intravenous, Administer over 60 | | AM PDT | | | | | Minutes, ONCE, [facility] 10/15/18 at | | | | | | | 0915, For 1 dose | | | | | | + +---------+ +-----+ +---+ +---+---+ | | | +---+---+ + +-------+ +--------+---+---+ | cholecalciferol (VITAMIN D-3) | Given | 10/20/19 | 2,000 | | | | tablet 2,000 Units 2,000 Units, | | 19 9:07 | Units | | | | Oral, EVERY MORNING, First dose | | AM PDT | | | | | on Fri10/12/18 at 2030 | | | | | | + +-------+ +--------+---+---+ +-------+ +--------+---+---+ | Given | 10/19/19 | 2,000 | | | | | 19 8:50 | Units | | | | | AM PDT | | | | +-------+ +--------+---+---+ | Given | 10/18/19 | 2,000 | | | | | 19 9:39 | Units | | | | | AM PDT | | | | +-------+ +--------+---+---+ +---+---+ | | | +---+---+ + +-------+ +-------+---+---+ | clopidogrel (PLAVIX) tablet 75 | Given | 10/20/19 | 75 mg | | | | mg 75 mg, Oral, EVERY MORNING, | | 19 9:07 | | | | | First dose on 10/12/19 at 2030 | | AM PDT | | | | + +-------+ +-------+---+---+ +-------+ +-------+---+---+ | Given | 10/19/19 | 75 mg | | | | | 19 8:50 | | | | | | AM PDT | | | | +-------+ +-------+---+---+ | Given | 10/18/19 | 75 mg | | | | | 19 9:39 | | | | | | AM PDT | | | | +-------+ +-------+---+---+ +---+---+ | | | +---+---+ + +-------+ +--------+---+---+ | colchicine tablet 0.6 mg 0.6 | Given | 10/20/19 | 0.6 mg | | | | mg, Oral, DAILY, First dose on | | 19 9:07 | | | | | 10/13/18 at 0900, Hold for | | AM PDT | | | | | diarrhea., | | | | | | + +-------+ +--------+---+---+ +-------+ +--------+---+---+ | Given | 10/19/19 | 0.6 mg | | | | | 19 8:50 | | | | | | AM PDT | | | | +-------+ +--------+---+---+ | Given | 10/18/19 | 0.6 mg | | | | | 19 9:39 | | | | | | AM PDT | | | | +-------+ +--------+---+---+ +---+---+ | | | +---+---+ + +-------+ +--------+---+---+ | cyanocobalamin (VITAMIN B-12) | Given | 10/20/19 | 1,000 | | | | tablet 1,000 mcg 1,000 mcg, | | 19 9:06 | mcg | | | | Oral, EVERY MORNING, First dose | | AM PDT | | | | | on 10/12/18 at 2030 | | | | | | + +-------+ +--------+---+---+ +-------+ +--------+---+---+ | Given | 10/19/19 | 1,000 | | | | | 19 8:49 | mcg | | | | | AM PDT | | | | +-------+ +--------+---+---+ | Given | 10/18/19 | 1,000 | | | | | 19 9:43 | mcg | | | | | AM PDT | | | | +-------+ +--------+---+---+ +---+---+ | | | +---+---+ + +---------+ +---+ + + | dextrose 5% and sodium chloride | New Bag | 10/14/19 | | 75 mL/hr | Left Arm | | 0.9% (D5 NS) infusion at 75 | | 19 9:48 | | | | | mL/hr, Intravenous, CONTINUOUS, | | AM PDT | | | | | Starting 10/12/18 at 2030 | | | | | | + +---------+ +---+ + + +---------+ +--------+ +---+ | New Bag | 10/13/19 | 1,000 | 75 mL/hr | | | | 19 8:55 | mLs | | | | | PM PDT | | | | +---------+ +--------+ +---+ +---+---+ | | | +---+---+ + +-------+ +-------+---+---+ | DULoxetine (CYMBALTA) DR | Given | 10/20/19 | 60 mg | | | | capsule 60 mg 60 mg, Oral, EVERY | | 19 9:06 | | | | | MORNING, First dose on Mon | | AM PDT | | | | | 10/12/18 at 2030, Do not open | | | | | | | capsule., | | | | | | + +-------+ +-------+---+---+ +-------+ +-------+---+---+ | Given | 10/19/19 | 60 mg | | | | | 19 8:49 | | | | | | AM PDT | | | | +-------+ +-------+---+---+ | Given | 10/18/19 | 60 mg | | | | | 19 9:39 | | | | | | AM PDT | | | | +-------+ +-------+---+---+ +---+---+ | | | +---+---+ + +-------+ +-------+---+ + | enoxaparin (LOVENOX) 40 mg/0.4 | Given | 10/20/19 | 40 mg | | Abdomen- | | mL injection 40 mg 40 mg, | | 19 9:06 | | | LLQ | | Subcutaneous, EVERY 24 HOURS | | AM PDT | | | | | (Daily), First dose on Fri10/13/18 | | | | | | | at 0900 | | | | | | + +-------+ +-------+---+ + +-------+ +-------+---+ + | Given | 10/19/19 | 40 mg | | Abdomen- | | | 19 8:49 | | | RUQ | | | AM PDT | | | | +-------+ +-------+---+ + | Given | 10/18/19 | 40 mg | | Abdomen- | | | 19 9:38 | | | RLQ | | | AM PDT | | | | +-------+ +-------+---+ + +---+---+ | | | +---+---+ + +-------+ +-------+---+---+ | furosemide (LASIX) tablet 20 mg | Given | 10/20/19 | 20 mg | | | | 20 mg, Oral, EVERY MORNING, | | 19 9:07 | | | | | First dose (after last | | AM PDT | | | | | modification) on 10/17/18 at | | | | | | | 0900 | | | | | | + +-------+ +-------+---+---+ +-------+ +-------+---+---+ | Given | 10/19/19 | 20 mg | | | | | 19 8:50 | | | | | | AM PDT | | | | +-------+ +-------+---+---+ | Given | 10/18/19 | 20 mg | | | | | 19 9:39 | | | | | | AM PDT | | | | +-------+ +-------+---+---+ +---+---+ | | | +---+---+ + +-------+ +-------+---+---+ | hydroCHLOROthiazide tablet 25 | Given | 10/20/19 | 25 mg | | | | mg 25 mg, Oral, EVERY MORNING, | | 19 9:07 | | | | | First dose on 10/17/18 at 0900 | | AM PDT | | | | + +-------+ +-------+---+---+ +-------+ +-------+---+---+ | Given | 10/19/19 | 25 mg | | | | | 19 8:50 | | | | | | AM PDT | | | | +-------+ +-------+---+---+ | Given | 10/18/19 | 25 mg | | | | | 19 9:39 | | | | | | AM PDT | | | | +-------+ +-------+---+---+ +---+---+ | | | +---+---+ + +-------+ + +---+ + | insulin glargine (LANTUS) | Given | 10/19/19 | 18 Units | | Abdomen- | | injection (vial) 18 Units 18 | | 19 9:06 | | | LLQ | | Units, Subcutaneous, NIGHTLY, | | PM PDT | | | | | First dose on Fri10/12/18 at 2100, | | | | | [...] +-------+ + +---+ + | Given | 10/18/19 | 18 Units | | Arm-Left | | | 19 9:10 | | | Upper | | | PM PDT | | | | +-------+ + +---+ + | Given | 10/17/19 | 18 Units | | Arm-Righ | | | 19 9:37 | | | t Upper | | | PM PDT | | | | +-------+ + +---+ + +---+---+ | | | +---+---+ + +-------+ +---------+---+ + | insulin lispro (humaLOG) | Given | 10/20/19 | 4 Units | | Abdomen- | | injection (vial) 0-12 Units 0-12 | | 19 12:05 | | | LLQ | | Units, Subcutaneous, 4 TIMES | | PM PDT | | | | | DAILY WITH MEALS & NIGHTLY, First | | | | | | | dose on 10/12/18 at 2100, | | | | | [...] | | | | | | | [id number] Use NIGHT DOSE for | | | | | | | doses scheduled: HS, 3AM, | | | | | | | Nighttime [id number] If the BG is | | | [...] + +-------+ +---------+---+ + | Given | 10/18/19 | 2 Units | | Arm-Righ | | | 19 12:45 | | | t Upper | | | PM PDT | | | | +-------+ +---------+---+ + | Given | 10/17/19 | 4 Units | | Arm-Righ | | | 19 5:05 | | | t Upper | | | PM PDT | | | | +-------+ +---------+---+ + +---+---+ | | | +---+---+ + +-------+ +---------+---+ + | insulin lispro (humaLOG) | Given | 10/20/19 | 5 Units | | Abdomen- | | injection (vial) 5 Units 5 | | 19 12:05 | | | LLQ | | Units, Subcutaneous, 3 TIMES | | PM PDT | | | | | DAILY WITH MEALS, First dose on | | | | | | | 10/13/18 at 1345, Give in | | | | | | | addition to sliding scale Only | | | | | | | for use with U-100 insulin | | | | | | | syringe., | | | | | | + +-------+ +---------+---+ + +-------+ +---------+---+ + | Given | 10/20/19 | 5 Units | | Abdomen- | | | 19 9:04 | | | LLQ | | | AM PDT | | | | +-------+ +---------+---+ + | Given | 10/19/19 | 5 Units | | Abdomen- | | | 19 4:56 | | | LLQ | | | PM PDT | | | | +-------+ +---------+---+ + +---+---+ | | | +---+---+ + +-------+ +--------+---+---+ | iopamidol (ISOVUE-370) 370 | Given | 10/13/19 | 80 mLs | | | | mg/mL injection 80 mL 80 mL, | | 19 3:50 | | | | | Intravenous, ONCE PRN, Other, | | PM PDT | | | | | Starting 10/12/18 at 1550, For | | | | | | | 1 dose, Cat Scanner | | | | | | + +-------+ +--------+---+---+ +---+---+ | | | +---+---+ + +-------+ +---------+---+---+ | levothyroxine (SYNTHROID) | Given | 10/14/19 | 150 mcg | | | | tablet 150 mcg 150 mcg, Oral, | | 19 4:14 | | | | | ONCE, 10/13/18 at 1415, For 1 | | PM PDT | | | | | dose, Give before breakfast., | | | | | | + +-------+ +---------+---+---+ +---+---+ | | | +---+---+ + +-------+ +---------+---+---+ | levothyroxine (SYNTHROID) | Given | 10/20/19 | 250 mcg | | | | tablet 250 mcg 250 mcg, Oral, | | 19 6:30 | | | | | DAILY BEFORE BREAKFAST, First | | AM PDT | | | | | dose (after last modification) on | | | | | | | 10/14/18 at 0600, Give before | | | | | | | breakfast., | | | | | | + +-------+ +---------+---+---+ +-------+ +---------+---+---+ | Given | 10/19/19 | 250 mcg | | | | | 19 6:34 | | | | | | AM PDT | | | | +-------+ +---------+---+---+ | Given | 10/18/19 | 250 mcg | | | | | 19 5:59 | | | | | | AM PDT | | | | +-------+ +---------+---+---+ +---+---+ | | | +---+---+ + +-------+ +--------+---+---+ | levothyroxine (SYNTHROID) | Given | 10/14/19 | 75 mcg | | | | tablet 75 mcg 75 mcg, Oral, | | 19 7:39 | | | | | DAILY BEFORE BREAKFAST, First | | AM PDT | | | | | dose on Fri10/13/18 at 0730, Give | | | | | | | before breakfast., | | | | | | + +-------+ +--------+---+---+ +---+---+ | | | +---+---+ + +---------+ +---------+---+ + | lidocaine (LIDODERM) 5% patch 1 | Patch | 10/20/19 | 1 patch | | Back-Low | | patch 1 patch, Transdermal, | Applied | 19 9:06 | | | er | | DAILY, First dose on Fri10/14/18 | | AM PDT | | | Middle | | at 1530, Apply for 12 hours, then | | | | | | | remove for 12 hours., Time to | | | | | | | remove patch: 4:00 AM | | | | | | + +---------+ +---------+---+ + + + +---------+---+ + | Patch Applied | 10/19/19 | 1 patch | | Back-Low | | | 19 8:51 | | | er | | | AM PDT | | | Middle | + + +---------+---+ + | Patch Applied | 10/18/19 | 1 patch | | Back-Low | | | 19 9:40 | | | er | | | AM PDT | | | Middle | + + +---------+---+ + +---+---+ | | | +---+---+ + +-------+ +-------+---+---+ | losartan (COZAAR) tablet 50 mg | Given | 10/20/19 | 50 mg | | | | 50 mg, Oral, EVERY MORNING, | | 19 9:06 | | | | | First dose on Fri10/12/18 at 2030 | | AM PDT | | | | + +-------+ +-------+---+---+ +-------+ +-------+---+---+ | Given | 10/19/19 | 50 mg | | | | | 19 8:50 | | | | | | AM PDT | | | | +-------+ +-------+---+---+ | Given | 10/18/19 | 50 mg | | | | | 19 9:40 | | | | | | AM PDT | | | | +-------+ +-------+---+---+ +---+---+ | | | +---+---+ + +---------+ +-----+ + + | magnesium sulfate 2 g/50 mL | New Bag | 10/14/19 | 2 g | 25 mL/hr | Left Arm | | IVPB 2 g 2 g, Intravenous, | | 19 2:16 | | | | | Administer over 120 Minutes, | | PM PDT | | | | | ONCE, [facility] 10/13/18 at 1345, For 1 | | | | | | | dose, Maximum recommended | | | | | | | infusion rate = 1 gram/hour., | | | | | | + +---------+ +-----+ + + +---+---+ | | | +---+---+ + +-------+ +------+---+---+ | oxyCODONE (ROXICODONE) tablet | Given | 10/18/19 | 5 mg | | | | 5-10 mg 5-10 mg, Oral, EVERY 4 | | 19 9:00 | | | | | HOURS PRN, Pain, Starting Wed | | PM PDT | | | | | 10/14/18 at 1509 | | | | | | + +-------+ +------+---+---+ +-------+ +------+---+---+ | Given | 10/18/19 | 5 mg | | | | | 19 3:10 | | | | | | PM PDT | | | | +-------+ +------+---+---+ | Given | 10/18/19 | 5 mg | | | | | 19 9:49 | | | | | | AM PDT | | | | +-------+ +------+---+---+ +---+---+ | | | +---+---+ + +-------+ +-------+---+---+ | pantoprazole (PROTONIX) DR | Given | 10/15/19 | 40 mg | | | | tablet 40 mg 40 mg, Oral, DAILY | | 19 7:24 | | | | | BEFORE BREAKFAST, First dose on | | AM PDT | | | | | 10/13/18 at 0730, Indication: | | | | | | | GERD | | | | | | + +-------+ +-------+---+---+ +-------+ +-------+---+---+ | Given | 10/14/19 | 40 mg | | | | | 19 7:39 | | | | | | AM PDT | | | | +-------+ +-------+---+---+ +---+---+ | | | +---+---+ + +-------+ +-------+---+---+ | pantoprazole (PROTONIX) DR | Given | 10/20/19 | 40 mg | | | | tablet 40 mg 40 mg, Oral, 2 | | 19 6:30 | | | | | TIMES DAILY BEFORE MEALS, First | | AM PDT | | | | | dose (after last modification) on | | | | | | | 10/14/18 at 1630, Indication: | | | | | | | GERD | | | | | | + +-------+ +-------+---+---+ +-------+ +-------+---+---+ | Given | 10/19/19 | 40 mg | | | | | 19 4:57 | | | | | | PM PDT | | | | +-------+ +-------+---+---+ | Given | 10/19/19 | 40 mg | | | | | 19 8:50 | | | | | | AM PDT | | | | +-------+ +-------+---+---+ +---+---+ | | | +---+---+ + +---------+ +---------+-------+---+ | piperacillin-tazobactam (ZOSYN) | New Bag | 10/13/19 | 3.375 g | 200 | | | 3.375 g in sodium chloride 0.9% | | 19 2:18 | | mL/hr | | | 100 mL IVPB 3.375 g, | | PM PDT | | | | | Intravenous, Administer over 0.5 | | | | | | | Hours, ONCE, 10/12/18 at 1430, | | | | | | | For 1 dose, Activate system and | | | | | | | mix before use., Indications: | | | | | | | Community Acquired Pneumonia | | | | | | + +---------+ +---------+-------+---+ +---+---+ | | | +---+---+ + +---------+ +---------+ +---+ | piperacillin-tazobactam (ZOSYN) | New Bag | 10/17/19 | 3.375 g | 25 mL/hr | | | 3.375 g in sodium chloride 0.9% | | 19 3:43 | | | | | 100 mL IVPB 3.375 g, | | PM PDT | | | | | Intravenous, Administer over 4 | | | | | | | Hours, EVERY 8 HOURS (3 times per | | | | | | | day), First dose on Fri10/12/18 | | | | | | | at 2200, Activate system and mix | | | | | | | before use., Indications: | | | | | | | Community Acquired Pneumonia | | | | | | + +---------+ +---------+ +---+ +---------+ +---------+ +---+ | New Bag | 10/17/19 | 3.375 g | 25 mL/hr | | | | 19 6:38 | | | | | | AM PDT | | | | +---------+ +---------+ +---+ | New Bag | 10/16/19 | 3.375 g | 25 mL/hr | | | | 19 11:02 | | | | | | PM PDT | | | | +---------+ +---------+ +---+ +---+---+ | | | +---+---+ + +-------+ +--------+---+---+ | pregabalin (LYRICA) capsule 300 | Given | 10/20/19 | 300 mg | | | | mg 300 mg, Oral, 2 TIMES DAILY, | | 19 9:07 | | | | | First dose on Fri10/12/18 at 2100 | | AM PDT | | | | + +-------+ +--------+---+---+ +-------+ +--------+---+---+ | Given | 10/19/19 | 300 mg | | | | | 19 9:06 | | | | | | PM PDT | | | | +-------+ +--------+---+---+ | Given | 10/19/19 | 300 mg | | | | | 19 8:49 | | | | | | AM PDT | | | | +-------+ +--------+---+---+ +---+---+ | | | +---+---+ + +---------+ +--------+-------+---+ | sodium chloride 0.9% (NS) bolus | New Bag | 10/13/19 | 1,000 | 2000 | | | 1,000 mL 1,000 mL, Intravenous, | | 19 2:13 | mLs | mL/hr | | | Administer over 30 Minutes, | | PM PDT | | | | | ONCE, Fri10/12/18 at 1430, For 1 | | | | | | | dose | | | | | | + +---------+ +--------+-------+---+ +---+---+ | | | +---+---+ + +-------+ +--------+---+---+ | tamsulosin (FLOMAX) capsule 0.4 | Given | 10/19/19 | 0.4 mg | | | | mg 0.4 mg, Oral, NIGHTLY, First | | 19 9:06 | | | | | dose on Fri10/12/18 at 2100, May | | PM PDT [...] +-------+ +--------+---+---+ +-------+ +--------+---+---+ | Given | 10/18/19 | 0.4 mg | | | | | 19 8:59 | | | | | | PM PDT | | | | +-------+ +--------+---+---+ | Given | 10/17/19 | 0.4 mg | | | | | 19 9:32 | | | | | | PM PDT | | | | +-------+ +--------+---+---+ +---+---+ | | | +---+---+ + +-------+ + +---+---+ | technetium TC-99M sulfur | Given | 10/17/19 | 1 | | | | colloid solution 1 millicurie 1 | | 19 8:15 | millicur | | | | millicurie, Oral, ONCE PRN, | | AM PDT | ie | | | | Other, Starting 10/16/18 at | | | | | | | 0815, For 1 dose, Nuclear | | | | | | | Medicine | | | | | | + +-------+ + +---+---+ +---+---+ | | | +---+---+ + +-------+ +-------+---+---+ | traZODone (DESYREL) tablet 50 | Given | 10/19/19 | 50 mg | | | | mg 50 mg, Oral, NIGHTLY, First | | 19 9:06 | | | | | dose on Fri10/12/18 at 2100 | | PM PDT | | | | + +-------+ +-------+---+---+ +-------+ +-------+---+---+ | Given | 10/18/19 | 50 mg | | | | | 19 9:00 | | | | | | PM PDT | | | | +-------+ +-------+---+---+ | Given | 10/17/19 | 50 mg | | | | | 19 9:32 | | | | | | PM [...]
--- OUTSIDE RECORDS SUMMARY | ~2019-02-17 | XMS | Encounter Summary ---
Demographics + + + | Address | [address] | | | [place] [address] | + + + | Home Phone | | + + + | Preferred Language | Unknown | + + + | Marital Status | | + + + | Oriental Orthodox Affiliation | 1025 | + + [...] Providers + +------+ + | Care Senior Corporate Accountant Name | Role | Phone | + [...] Description | +--------+--------+ + + + | 10/14/ | Refill | [place] [facility] | Horacio Silvestre, | Medication Refill | | 2017 | | [facility] | [address] | | | | | [facility] [address] | [facility], [place] | | | | | [address] [place], | [address] | | | | | [place] [address] | [phone] | | | | | [phone] | | | +--------+--------+ + + + [...] [place] | | | | | | [address] | | | | | | [phone] | | | | | | | | +--------+---------+ + + + | 02/26/ | Office | Urology | Lillie Fowler | | | 2018 | Visit | | LILLIE Lopez [address] | | | | | | [address] | | | | | | [place], [place] | | | | | | [address] | | | | | | [phone] | | | | | | | | +--------+---------+ + + + | 03/16/ | Office | Neurology | Theresa, | | | 2018 | Visit | | [address] | | | | | | [address] [place], | | | | | | [place] [address] | | | | | | [phone] | | | | | | | | +--------+---------+ + + + | 04/12/ | Office | Primary Care | Massimo Ramos | | | 2019 | Visit | | MD eFr [address] | | | | | | [address] [place] | | | | | | [address] | | | | | | | | +--------+---------+ + + + | 10/03/ | Office | Neurology | Fabián Carias MD | | | 2019 | Visit | | [address] | | | | | | [place] | | | | | | [address] | | | | | | | [...] | | care | | | Supervisor [employer] | | | | | | | [...] | | care | | | Supervisor [employer] | | | | | | | [...] | | care | | | Supervisor [employer] | | | | | | | [...] | | care | | | Supervisor [employer] | | | | | | | linical | + +--------+ +---+-----+ + + + | Note: Pt will | | check CBG's daily x1 | | Pt will take Lantis as | | prescribed | + + documented as of this encounter Visit Diagnoses + + | Diagnosis | + + | Type 2 diabetes mellitus without complication, with long-term current use of insulin | | (HCC) | + + documented in this encounter"
--- OUTSIDE RECORDS SUMMARY | ~2019-02-17 | XMS | Encounter Summary ---
Demographics + + + | Address | [address] | | | [place] [address] | + + + | Home Phone [...] Providers + +------+ + | Care 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 Replanter Name | Role | Phone | + [...] [phone] | | | | | [place] [address] | | | | | | [phone] | | | +--------+ + + + [...] Office | General Surgery | Scott De Olvieira | | | 2018 | Visit | | DO Jalen [address] | | | | | | [address] | | | | | | [place], [place] | | | | | | [address] | | | | | | [phone] | | | | | | | | +--------+---------+ + + + | 02/26/ | Office | Urology | Lillie Fowler | | | 2018 | Visit | | LILLIE Lopez [address] | | | | | | [address] | | | | | | [place], [place] | | | | | | [address] | | | | | | [phone] | | | | | | | | +--------+---------+ + + + | 03/16/ | Office | Neurology | Theresa, | | | 2018 | Visit | | [address] | | | | [address] [place], | | | | | | [place] [address] | | | | | | [phone] | | | | | | | | +--------+---------+ + + + | 04/12/ | Office | Primary Care | Massimo Ramos Pedro Luis | | | 2019 | Visit | | MD Fer [address] | | | | | | [place] | | | | | | [address] | | | | | | | | +--------+---------+ + + + | 10/03/ | Office | Neurology | Fabián Carias MD | | | 2019 | Visit | | [address] | | | | | | [place] | | | | | | [address] | | | | | | | [...] Lifest | Coordinatio | | Yes | Jocelny, | | function and decrease | yle | n of | | | Charline M, | | dehydration | | complex | | | Case | | | | care | | | Wrapping Machine Helper-C | | | | | | [...] | | | care | | | Wrapping Machine Helper-C | | | | | | [...] | | | care | | | Wrapping Machine Helper-C | | | | | | [...] | | | care | | | Wrapping Machine Helper-C | | | | | | [...]
--- OUTSIDE RECORDS SUMMARY | ~2019-02-17 | XMS | Encounter Summary ---
Demographics + + + | Address | [address] | | | [place] [address] | + + + | Home Phone [...] Team Providers + +------+ + | Care Communication Manager Name | Role | Phone | [...] | | | | | [place], | [place], [place] | | | | | | [place] | [address] | | | | | | [address] | Phone: | | | | | | Phone: | [phone] | | | | | | [phone] | Fax: | | | | | | Fax: | [phone] | | | | | | [phone] | | +--------+--------+ + + + + [...] | | | | [place], [place] | [address] | | | | | [address] | [phone] | | | | | [phone] | | | +--------+ + + + [...] [place] | | | | | | [address] | | | | | | [phone] | | | | | | | | +--------+---------+ + + + | 02/26/ | Office | Urology | Lillie Fowler | | | 2018 | Visit | | LILLIE [address] | | | | | | [address] | | | | | | [place] | | | | | | [address] | | | | | | [phone] | | | | | | | | +--------+---------+ + + + | 03/16/ | Office | Neurology | Theresa, | | | 2018 | Visit | | SHONDA Mckinney [address] [place], | | | | | | [place] [address] | | | | | | [phone] | | | | | | | [...] [place] | | | | | | [address] | | | | | | | [...] | | | care | | | Supervising Editor Trailer-C | | | | | | | [...] | | | care | | | Supervising Editor Trailer-C | | | | | | | [...] | | | care | | | Supervising Editor Trailer-C | | | | | | | [...] | | | care | | | Supervising Editor Trailer-C | | | | | | | [...]
--- OUTSIDE RECORDS SUMMARY | ~2019-02-17 | XMS | Encounter Summary ---
Demographics + + + | Address | [address] | | | [place] [address] | + + + | Home Phone [...] Team Providers + +------+ + | Care Stenciler Name | Role | Phone | + +------+ + | Ryan Gutiérrez MD | PCP | | + +------+ + Encounter Details +--------+ + + + + | Date | Type | Department | Care Team | Description | +--------+ + + + + | 06/21/ | Hospital | [facility] | [facility] | | | 2016 | Encounter | [facility] | MD [address] | | | | | C[address] | [facility] | | | | | DR [place], [place] | [place] [address] | | | | | [address] | [phone] | | | | | [phone] | | | +--------+ + + + [...] [place] | | | | | | [address] | | | | | | [phone] | | | | | | | | +--------+---------+ + + + | 02/26/ | Office | Urology | Lillie Fowler | | | 2018 | Visit | | LILLIE Lopez [address] | | | | | | [address] | | | | | | [place] | | | | | | [address] | | | | | | [phone] | | | | | | | | +--------+---------+ + + + | 03/16/ | Office | Neurology | Theresa, | | | 2018 | Visit | | SHONDA M[address] | | | | | [address] [place], | | | | | | [place] [address] | | | | | | [phone] | | | | | | | | +--------+---------+ + + + | 04/12/ | Office | Primary Care | Massimo Ramos | | | 2019 | Visit | | MD Fer [address] | | | | | | [place] | | | | | | [address] | | | | | | | | +--------+---------+ + + + | 10/03/ | Office | Neurology | Fabián Carias MD | | | 2019 | Visit | | [address] | | | | | | [place] | | | | | | [address] | | | | | | | [...] | | | care | | | [employer] | | | | | | [...] | | | care | | | [employer] | | | | | | [...] | | | care | | | [employer] | | | | | | [...] | | | care | | | [employer] | | | | | | [...] | CBC WITH MANUAL | STAT | 06/22/2015 | | Results for this | | DIFFERENTIAL | | 9:18 PM | | procedure are in the | | | | PDT | | results section. | + +--------+ + + + | MAGNESIUM | STAT | 06/22/2015 | | Results for this | | | | 9:18 PM | | procedure are in the | | | | PDT | | results section. | + +--------+ + + + | LIPASE | STAT | 06/22/2015 | | Results for this | | | | 9:18 PM | | procedure are in the | | | | PDT | | results section. | + +--------+ + + + | COMPREHENSIVE | STAT | 06/22/2015 | | Results for this | | METABOLIC PANEL | | 9:18 PM | | procedure are in the | | | | PDT | | results section. | + +--------+ + + + | URINALYSIS WITH | STAT | 06/22/2015 | | Results for this | | MICROSCOPIC WITH | | 9:17 PM | | procedure are in the | | CULTURE IF INDICATED | | PDT | | results section. | + +--------+ + + + | CT ABDOMEN PELVIS WO | Routin | 06/22/2015 | | Results for this | | CONTRAST | e | 8:12 PM | | procedure are in the | | | | PDT | | results section. | + +--------+ + + + documented in this encounter Results CBC with Manual Differential (06/22/2015 9:18 PM PDT) + +--------+ + + + | Component | Value | Ref Range | Performed | Pathologist | | | | | At | Signature | + +--------+ + + + | WBC | 18.5 | 4.6 - 10.5 | EXTERNAL | | | | | 1000/mm3 | LAB | | + +--------+ + + + | RBC | 4.7 | 4.36 - 5.83 | EXTERNAL | | | | | mil/mm3 | LAB | | + +--------+ + + + | HGB, | 14.2 | 13.1 - 17.4 | EXTERNAL | | | External | | g/dL | LAB | | + +--------+ + + + | HCT, | 43.2 | 39.0 - 51.9 % | EXTERNAL | | | External | | | LAB | | + +--------+ + + + | MCV | 92 | 82 - 96 fl | EXTERNAL | | | | | | LAB | | + +--------+ + + + | MCH | 30.2 | 27.7 - 32.3 pg | EXTERNAL | | | | | | LAB | | + +--------+ + + + | MCHC | 32.9 | 32.0 - 36.9 | EXTERNAL | | | | | g/dL | LAB | | + +--------+ + + + | RDW-CV | 14.5 | <=17.0 % | EXTERNAL | | | | | | LAB | | + +--------+ + + + | RDW-SD | 47.2 | 34.0 - 57.0 fL | EXTERNAL | | | | | | LAB | | + +--------+ + + + | Platelet | 174 | 150 - 450 | EXTERNAL | | | Count | | 1000/mm3 | LAB | | | Plasma | | | | | + +--------+ + + + | MPV | 10.3 | 9.4 - 12.4 FL | EXTERNAL | | | | | | LAB | | + +--------+ + + + | % Segmented | 82 | 42 - 76 % | EXTERNAL | | | | | | LAB | | | Neutrophils | | | | | + +--------+ + + + | % Bands | 6 | <=7 % | EXTERNAL | | | | | | LAB | | + +--------+ + + + | LYMPH % | 4 | 20 - 40 % | EXTERNAL | | | | | | LAB | | + +--------+ + + + | % Monocytes | 8 | 3 - 13 % | EXTERNAL | | | | | | LAB | | + +--------+ + + + | Absolute | 16.03 | 2.80 - 7.70 | EXTERNAL | | | Neutrophils | | 1000/mm3 | LAB | | + +--------+ + + + | Absolute | 0.8 | 1.20 - 3.30 | EXTERNAL | | | Lymphocytes | | 1000/mm3 | LAB | | + +--------+ + + + | Absolute | 1.6 | 0.00 - 0.80 | EXTERNAL | | | Monocytes | | 1000/mm3 | LAB | | + +--------+ + + + | Absolute | 0.08 | 0.00 - 0.70 | EXTERNAL | | | Eosinophils | | 1000/mm3 | LAB | | + +--------+ + + + | Absolute | 0.02 | 0.00 - 0.20 | EXTERNAL | | | Basophils | | 1000/mm3 | LAB | | + +--------+ + + + | RBC | NORMAL | | EXTERNAL | | | Morphology | [...] | | + +---------+ + + Magnesium (06/22/2015 9:18 PM PDT) + +-------+ + + + | Component | Value | Ref Range | Performed | Pathologist | | | | | At | Signature | + +-------+ + + + | Magnesium | 1.8 | 1.8 - 2.4 mg/dL | EXTERNAL [...] | | + +---------+ + + Lipase (06/22/2015 9:18 PM PDT) + +-------+ + + + | Component | Value | Ref Range | Performed | Pathologist | | | | | At | Signature | + +-------+ + + + | Lipase | 185 | 73 - 393 U/L | EXTERNAL [...] + +---------+ + + Comprehensive Metabolic Panel (06/22/2015 9:18 PM PDT) + +-------+ + + + | Component | Value | Ref Range | Performed | Pathologist | | | | | At | Signature | + +-------+ + + + | Sodium | 139 | 132 - 143 | EXTERNAL | | | | | mmol/L | LAB | | + +-------+ + + + | Potassium | 4.2 | 3.3 - 4.9 | EXTERNAL | | | | | mmol/L | LAB | | + +-------+ + + + | Cl | 99 | 95 - 108 mmol/L | EXTERNAL [...] +-------+ + + + | Calcium | 9.5 | 8.3 - 10.0 | EXTERNAL | | | | | mg/dL | LAB | | + +-------+ + + + | Glucose | 139 | 70 - 110 mg/dL | EXTERNAL | | | | | | LAB | | + +-------+ + + + | BUN, Bld | 21 | 5 - 26 mg/dL | EXTERNAL | | | | | | LAB | | + +-------+ + + + | Creatinine | 1.16 | 0.70 - 1.40 | EXTERNAL | | | | | mg/dL | LAB | | + +-------+ + + + | BUN/Creatin | 18.1 | 7.0 - 24.0 | EXTERNAL | | | ine Ratio | | RATIO | LAB | | + +-------+ + + + | GFR | 60 | >=60 | EXTERNAL | | | ESTIMATE | | mL/min/1.73m2 | LAB | | + +-------+ + + + | Bilirubin, | 0.7 | <=1.2 mg/dL | EXTERNAL | | | Total | | | LAB | | + +-------+ + + + | Protein, | 8 | 6.6 - 8.5 g/dL | EXTERNAL | | | Total | | | LAB | | + +-------+ + + + | Albumin | 4 | 3.0 - 4.5 g/dL | EXTERNAL | | | | | | LAB | | + +-------+ + + + | Alkaline | 68 | 46 - 116 U/L | EXTERNAL | | | Phosphatase | | | LAB | | + +-------+ + + + | ALT, | 40 | 16 - 63 U/L | EXTERNAL | | | External | | | LAB | | + +-------+ + + + | AST, | 38 | <=38 U/L | EXTERNAL | | [...] Urinalysis with Microscopic with Culture if Indicated (06/22/2015 9:17 PM PDT) + + + + + [...] - 1.030 | EXTERNAL | | | [place], | | | LAB | | | Urine | | | | | + + + + + + | pH, Urine | 6.5 | 5.0 - 7.0 pH | EXTERNAL [...] + +---------+ + + CT Abdomen Pelvis wo Contrast (06/22/2015 8:12 PM PDT) + + | Specimen | + + | | + + + + + | Narrative | Performed At | + + + | ORIGINAL CT ABDOMEN AND PELVIS WITHOUT CONTRAST: | | | HISTORY: Diffuse abdominal pain. TECHNIQUE: 5-mm axial slices | | | were acquired through the abdomen and pelvis without contrast. | | | DOSE REPORT: DLP 1156.91 mGy-cm. COMPARISON: March 13, 2010. | | | FINDINGS: Heart size is stable. Respiratory motion limits | | | evaluation of lung bases. Evaluation of abdominal viscera is | | | limited due to lack of intravenous contrast. No acute liver process | | | is identified. There is change of prior cholecystectomy. The | | | visualized pancreas and spleen are unremarkable. The adrenal glands | | | are unremarkable. There is mild bilateral perinephric fat | | | stranding. Left renal cortical scarring versus cleft is unchanged | | | compared to the previous exam. No hydronephrosis, no hydroureter. | | | The bladder is decompressed. Prostate gland has eccentric coarse | | | calcifications similar to the prior exam. Seminal vesicles are | | | unremarkable. In an area of diverticular disease within the | | | proximal sigmoid colon is focal wall thickening. There is adjacent | | | pericolonic fat stranding. Several bubbles of extraluminal air are | | | scattered throughout the anterior abdomen. Bowel gas pattern is | | | nonobstructive. The aorta is normal in course and caliber. There | | | are fat-containing inguinal hernias bilaterally. No lymphadenopathy. | | | Osseous structures demonstrate multilevel endplate productive | | | change. There is mild apex left scoliosis. 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 Disk osteophyte | | | complexes at L2-3 and L4-5 also result in a degree of central stenosis | | | although less severe. IMPRESSION: 1. Perforated diverticulitis | | | of the sigmoid colon. 2. Extensive degenerative changes of the spine. | | | 3. Prior cholecystectomy. 4. Atherosclerosis. 5. Inguinal hernias | | | containing fat. Read By: | | | MASSIMO NUNEZ MD Released By: MASSIMO NUNEZ MD Date: | | | 06/23/2015 22:01 | | + + + + + | Procedure Note | + + | Osito, Rad Results In - 02/12/2017 10:[address] ABDOMEN AND PELVIS | | WITHOUT CONTRAST: HISTORY:Diffuse abdominal pain. TECHNIQUE:5-mm axial slices were | | acquired through the abdomen and pelvis without contrast. DOSE REPORT:DLP 1156.91 | | mGy-cm. COMPARISON:March 13, 2010. FINDINGS:Heart size is stable. Respiratory motion | | limits evaluation of lung bases. Evaluation of abdominal viscera is limited due to lack | | of intravenous contrast. No acute liver process is identified. There is change of | | prior cholecystectomy. The visualized pancreas and spleen are unremarkable. The | | adrenal glands are unremarkable. There is mild bilateral perinephric fat stranding. | | Left renal cortical scarring versus cleft is unchanged compared to the previous exam. | | No hydronephrosis, no hydroureter. The bladder is decompressed. Prostate gland has | | eccentric coarse calcifications similar to the prior exam. Seminal vesicles are | | unremarkable. In an area of diverticular disease within the proximal sigmoid colon is | | focal wall thickening. There is adjacent pericolonic fat stranding. Several bubbles of | | extraluminal air are scattered throughout the anterior abdomen. Bowel gas pattern is | | nonobstructive. The aorta is normal in course and caliber. There are fat-containing | | inguinal hernias bilaterally. No lymphadenopathy. Osseous structures demonstrate | | multilevel endplate productive change. There is mild apex left scoliosis. Disk | | osteophyte complex results in central stenosis at the L3-4 level. Disk osteophyte | | complexes at L2-3 and L4-5 also result in a degree of central stenosis although less | | severe. IMPRESSION:1. Perforated diverticulitis of the sigmoid colon.2. Extensive | | degenerative changes of the spine.3. Prior cholecystectomy.4. Atherosclerosis.5. | | Inguinal hernias containing fat. Job #: [id number] Read By: MASSIMO Fung | | MD ENRIQUE Released By: MASSIMO NUNEZ, MDDate: 06/23/2015 22:01 | | There is mild bilateral perinephric fat stranding. Left renal cortical scarring versus cl eft is unchanged compared to the previous exam. No hydronephrosis, no hydroureter. The claudia dder is decompressed. Prostate gland has eccentric coarse | |calcifications similar to the prior exam. Seminal vesicles are unremarkable. | | | |In an area of diverticular disease within the proximal sigmoid colon is focal wall thickeni ng. There is adjacent pericolonic fat stranding. Several bubbles of extraluminal air are s cattered throughout the anterior abdomen. Bowel gas pattern is | |nonobstructive. | | | |The aorta is normal in course and caliber. There are fat-containing inguinal hernias bilat erally. No lymphadenopathy. Osseous structures demonstrate multilevel endplate productive c hange. There is mild apex left scoliosis. Disk osteophyte complex | |results in central stenosis at the L3-4 level. Disk osteophyte complexes at L2-3 and L4-5 also result in a degree of central stenosis although less severe. | | | |IMPRESSION: | |1. Perforated diverticulitis of the sigmoid colon. | |2. Extensive degenerative changes of the spine. | |3. Prior cholecystectomy. | |4. Atherosclerosis. | |5. Inguinal hernias containing fat. | | | | | | | | | | | | | |Read By: MASSIMO NUNEZ MD | | | |Released By: MASSIMO NUNEZ MD | |Date: 06/23/2015 22:01 | | | | | + + documented in this encounter Visit Diagnoses Not on filedocumented in this encounter"
--- OUTSIDE RECORDS SUMMARY | ~2019-02-17 | XMS | Encounter Summary ---
Demographics + + + | Address | [address] | | | [place] [address] | + + + | Home Phone [...] Team Providers + +------+ + | Care Custodial Foreman Name | Role | Phone | + [...] Closed | | Radiology | Diagnoses | Rigoberto, | [address] | | | | | Mediastinal | [place] | [address] | | | | | | MD Satya | [place], | | | | | lymphadenopa | [address] | [place] [address] | | | | | thy | DR [address] | Phone: | | | | | Procedures | [place], [place] | [phone] | | | | | CT Chest | [address] | Fax: | | | | | Abdomen | Phone: | [phone] | | | | | Pelvis w | [phone] | | | | | | Contrast | Fax: | | | | | | | [phone] | | +--------+--------+ + + + + Reason for Visit + + + | Reason | Comments | + + + | New Patient | | + + + Evaluate & Treat (Urgent) + + + + + + + | Status | Reason | Specialty | Diagnoses / | Referred By | Referred To | | | | | Procedures | Contact | Contact | + + + + + + + | Authorized | Specialty | Oncology / | Diagnoses | Purviannie, | [facility] | | | Services | Hematology | Mediastinal | Horacio Tim DO | Hematology | | | Required | and Oncology | adenopathy | [address] | Oncology [address] | | | | | | [place], | [address] | | | | | | [place] | [place], [place] | | | | | | [address] | [address] | | | | | | Phone: | Phone: | | | | | | [phone] | [phone] | | | | | | Fax: | Fax: | | | | | | [phone] | [phone] | + + + + + + + Encounter Details +--------+ + + + + | Date | Type | Department | Care Team | Description | +--------+ + + + + | 10/27/ | Hospital | [facility] | Rigoberto, Garrison | Mediastinal | | 2019 | Encounter | HOSPITAL HEMATOLOGY | MD Satya [address] | lymphadenopathy | | | | ONCOLOGY [address] | [address] | (Primary Dx) | | | | DR [place], [place] | [place], [place] | | | | | [address] | [address] | | | | | [phone] | [phone] | | | | | | | [...] + + + | Blood Pressure | 130/72 | 10/27/2018 10:09 AM | | | | | PDT | | + + + + + | Pulse | 84 | 10/27/2018 10:09 AM | | | | | PDT | | + + + + + | Temperature | 36.5 C (97.7 F) | 10/27/2018 10:09 AM | | | | | PDT | | + + + + + | Respiratory Rate | 16 | 10/27/2018 10:09 AM | | | | | PDT | | + + + + + | Oxygen Saturation | 97% | 10/27/2018 10:09 AM | 2 liters NC | | | | PDT | | + + + + + | Inhaled Oxygen | - | - | | | Concentration | | | | + + + + + | Weight | 92.9 kg (204 lb 12.8 | 10/27/2018 10:09 AM | | | | oz) | PDT | | + + + + + | Height | - | - | | + + + + + | Body Mass Index | 33.06 | 10/12/2018 8:24 PM | | | [...] documented as of this encounter Progress Notes Arnaud Franklin MD - 10/27/2018 10:24 AM PDTFormatting of this note might be di fferent from the original. Hematology-Oncology Progress Note Pt. Name/Age/: Geraldo Mcfadden 78 y.o. 1940 CSN: [id number] Date of service: 10/27/2018 Provider: Arnaud Franklin MD HEMATOLOGY/ONCOLOGY PROBLEM LIST: Mediastinal adenopathy: 03/16/18: CT angiogram of chest shows ground-glass opacities with some nodularity in upper lobes and lung bases, right greater than left. 05/27/18: CT angiogram of chest shows resolution of ground-glass lung opacities. Lymph nodes are slightly enlarged, similar to 03/16/18. Subcarinal node is 1.7 cm. 09/30/18: CT angiogram pulmonary shows 1.5 cm LLL nodule, 0.7 cm left pleural nodule, both n ew. Lymph nodes in mediastinum and donya are prominent, largest 2.5 cm subcarinal. 10/12/18: CT angiogram pulmonary shows some decrease in lymph nodes compared to 09/30: right h ilar node is 1.5 cm (compared to 2.0), subcarinal cluster is 2.8 cm (compared to 3.0). RLL n odule is also smaller at 0.9 cm. Bibasilar opacities are present, L>R, new from 09/30. Assessment and plan: 78 year old man with worsening dyspnea and suspicious findings on chest CT scan. At first g howard these radiographic abnormalities do not strongly suggest malignancy; while each indivi dual scan shows suspicious findings, in four scans over 8 months we see lung infiltrates com ing and going and thoracic lymph nodes waxing and waning. In general we would expect maligna ncy to increase over time. An exception to this generality is lymphoma. Nodes involved with lymphoma overall tend to grow over time but in a shorter time frame can often shrink. We talked about ways to approach this. A direct way would be referral to a hr representative for bronchoscopic biopsy of a subcarinal node. A drawback to this would be the need to elizabeth (likely [facility] or [facility] with an overnight stay) and undergoing an invasive procedure. Another way would be CT scan of chest, abdomen and pelvis both to follow up on the document ed abnormalities in the chest and also look for evidence of malignancy below the diaphragm. We also discussed PET scan but as an initial test I think this would be less likely to provi de us with useful information. They agree with CT as an initial test. 1. I will request CT of chest, abdomen and pelvis with IV contrast along with lab work (CBC and CMP). I will see him back afterwards to review the results. Subjective: The patient chart and medications were reviewed in detail and the patient was seen and exam ined. Geraldo Mcfadden is a 78 y.o. male with thoracic adenopathy. He is here for initial medic al oncology consultation. PMH: Past Medical History: Diagnosis Date Carpal tunnel syndrome, bilateral 05/31/2013 DDD (degenerative disc disease), cervical 05/22/2013 Diabetes mellitus (HCC) GERD (gastroesophageal reflux disease) Gout Hiatal hernia Hypertension Melanoma (HCC) L ear Melanoma (HCC) Left ear 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, left (HCC) Neck pain, chronic 05/22/2013 Neuropathy Paresthesias - both hands 05/22/2013 Thyroid disease Social & Family Hx: Social History Socioeconomic History Marital status: Spouse name: Not on file Number of children: Not on file Years of education: Not on file Highest education level: Not on file Tobacco Use Smoking status: Former Smoker Packs/day: 3.00 Years: 15.00 Pack years: 45.00 Types: Cigarettes Last attempt to quit: 1975 Years since quittin.5 Smokeless tobacco: Never Used Substance and Sexual Activity Alcohol use: No Drug use: No Family History Problem Relation Age of Onset Diabetes Mother Heart disease Father Arthritis Maternal Grandfather Heart disease Maternal Grandfather Other (see comment) Paternal Grandmother Dementia Review of Systems: Constitutional: No fevers, chills, sweats, weight loss. Severe fatigue. Ears: No hearing problems or tinnitus. Nasopharynx: No nasal congestion or discharge. No sore throat or difficulty swa llowing. Vision: No diplopia, blurred vision, or changes in vision. Breathing: He is oxygen dependent and has severe shortness of breath; this is new compared to last year. Cardiac: No chest pain, palpitations, or lightheadedness. Gastrointestinal: Good appetite without nausea, vomiting or heartburn. No constipat ion or diarrhea. Genitourinary: No dysuria or difficulty voiding. Musculoskeletal: No pain or weakness Neurologic: No headaches, no paresthesias or numbness Psychiatric: No depression, anxiety or difficulty sleeping. Skin: No rashes, itching. Endocrine: No hot flashes, polydipsia, polyuria. Medications: Current Outpatient Medications Medication Sig albuterol 2.5 [...] morning (befor e breakfast) for 90 days. losartan (COZAAR) 50 mg tablet Take 50 mg by mouth every morning. Nebulizer MISC 1 each by Other route Daily. omeprazole (PRILOSEC) 20 mg capsule Take 20 mg by mouth. pregabalin (LYRICA) 300 MG capsule Take 300 [...] Skin. No current facility-administered medications for this encounter. Allergies: Allergies Allergen Reactions Ambien [Zolpidem] Anaphylaxis Vitals: Temp: 36.5 C (97.7 F) BP: 130/72 Pulse: 84 Resp: 16 SpO2: 97 %(2 liters NC) on Wt. Current: Weight: 92.9 kg (204 lb 12.8 oz) Physical Exam: General: ECOG PS 3. He appears well and is in no distress. Ears: Hearing grossly intact. Eyes: PERRL, EOMI. Conjunctivae clear. HEENT: Oropharynx is clear Neck: Supple without masses or thyromegaly Chest: Clear to auscultation and percussion Cardiac: RRR with S1, S2. No murmur or rub Abdomen: Soft, nontender with active bowel sounds. No hepatosplenomegaly. Lymphatic: No adenopathy in cervical, supraclavicular or axillary areas. Extremities: Without edema. No cyanosis or clubbing. Musculoskeletal: No deformities Skin: Without rashes or lesions Neurologic: Cranial nerves intact. Exam is grossly symmetric. Psychiatric: Good mood. Cognition and memory are grossly intact. Diagnostic studies: Available data and image reports were reviewed personally. See reports. Significant resul ts and findings are addressed here or in the Assessment and Plan. Imaging: Recent Results (from the past 360 hour(s)) XR Chest PA and Lateral Narrative EXAMINATION: XR CHEST PA AND LATERAL HISTORY: SHORTNESS OF BREATH COMPARISON STUDY: October 02, 2018 FINDINGS: The lungs are hypoventilated. There is hazy opacity laterally at the left lung base. Blun ting of the left costophrenic angle suggesting small pleural effusion. No pneumothorax. Ca rdiomediastinal silhouette is normal. No acute osseous process. Impression IMPRESSION: 1. Left lower lobe pneumonia with small parapneumonic effusion. Dictated by: Massimo Alba Angiogram Pulmonary w Contrast Narrative EXAMINATION: CT ANGIOGRAM PULMONARY W CONTRAST HISTORY: SHORTNESS OF BREATH, worsening effusion with ling nodules. COMPARISON STUDY: September 30, 2018, October 12, 2018 TECHNIQUE: 1.25 mm axial slices were acquired through the lungs during an arterial phase of contrast. Multiplanar MIP reconstructions were performed. There was no post contrast reaction. DOSE REPORT: Total exam DLP 700.98 mGy cm. Automated exposure control was utilized. FINDINGS: The bolus of contrast is adequate. No pulmonary artery filling defect. Great vessel caliber is normal. Mediastinum and hilum demonstrate prominent adenopathy, similar to the previous exam from J une 2019. Overall size of lymph nodes have decreased. For example, right hilar node on armen ge number 107 has a short diameter of 1.5 cm compared to previous 2.0 cm. Subcarinal marshall cluster has a short diameter of 2.8 cm compared to previous 3.0 cm. Other paratracheal and AP window nodes are similar to slightly smaller in size. Heart size is stable. Trace pericardial effusion. Coronary arteries have scattered atherosclerosis. No pleural effusion. No pneumothorax. Lung parenchyma demonstrates new bibasilar airspace opacities, left greater than right. Ri ght lower lobe lung nodule on image number 109 measures up to 9 mm. Previously this measure d up to 12 mm. The juxtapleural nodule in the left lower lobe on image number 144 of the previous exam is not re-evaluated due to the basilar opacity. Bilateral lower lobe bronchial wall thickening. There is aerated fluid or debris dependently within the midesophagus. Limited evaluation of abdominal viscera. Small hiatal hernia. No acute bone process. Impression IMPRESSION: 1. New bibasilar infectious versus aspiration pneumonia. 2. Mediastinal and hilar lymphadenopathy is mildly improved. Additionally there is mild in terval decreased size of the left basilar lung nodule. Query infectious versus inflammatory process. Continued surveillance is recommended. 3. The left basilar juxtapleural nodule of concern on the previous exam is obscured by the basilar pneumonia. Attention to this on subsequent follow-up. 4. Coronary artery disease. 5. Trace pericardial effusion. 6. Cardiomegaly. 7. The results of the study were discussed with Yuli Sanford for SHAHEEN HOWARD at 15:58 Dictated by: Massimo Alba Video Swallow w Speech Narrative EXAMINATION: FL VIDEO SWALLOW W SPEECH HISTORY: concern for silent aspiration with repeat pna COMPARISON STUDY: None FINDINGS: Swallow study was performed in conjunction with speech therapy. Has small amount of pooling within the vallecula and piriform sinus. No aspiration. The course and caliber of the esophagus is normal. Mild irregularity of the distal esophag us. No focal stricture or mass lesion is identified. There is no hiatal hernia. Mild spontaneous gastroesophageal reflux. Moderate mid and distal esophageal dysmotility with associated tertiary contractions.. FLUORO TIME: Time:5 seconds Number of images:787 Impression IMPRESSION: 1. Mild irregularity of the distal esophagus. Given the history of chronic reflux, direct visualization is recommended to rule out an underlying malignancy or pre malignant state. 2. Esophageal dysmotility. 3. No evidence of aspiration. Dictated by: Massimo Alba Gastric Emptying Narrative EXAMINATION: NM GASTRIC EMPTYING HISTORY: suspected gastroparesis COMPARISON STUDY: None TECHNIQUE: 1.0 millicuries of sulfur colloid was combined with a standard meal and consumed by the [facility] ie. Routine imaging over 4 hours was then performed. FINDINGS: Today's study demonstrates the following values: T1/2 emptying time 102.8 minutes. 60 minutes retention 78.3 % 90 minutes retention 42.0 % 120 minutes retention 29.3 % 240 minute retention 7.0 % Normal gastric emptying T1/2 60-110 minutes Normal retention values; 30 minutes 70-100% 60 minutes 39-90% 120 minutes 30-60% 240 minutes 0-10% Impression IMPRESSION: Normal gastric emptying. Dictated by: Massimo Alba Electronically signed by: Arnaud Franklin MD 10/27/2018 10:24 CC: Horacio Silvestre DO documented in this encounter Plan of Treatment [...] [place] | | | | | | [address] | | | | | | [phone] | | | | | | | | +--------+---------+ + + + | 02/26/ | Office | Urology | Lillie Folwer | | | 2018 | Visit | | [address]ILLIE [address] | | | | | | [address] | | | | | | [place] | | | | | | [address] | | | | | | [phone] | | | | | | | | +--------+---------+ + + + | 03/16/ | Office | Neurology | Theresa, | | | 2018 | Visit | | SHONDA M[address]ney [address] | | | | | [address] [place], | | | | | | [place] [address] | | | | | | [phone] | | | | | | | | +--------+---------+ + + + | 04/12/ | Office | Primary Care | Massimo Ramos | | | 2019 | Visit | | MD Fer [address] | | | | | | [place] | | | | | | [address] | | | | | | | | +--------+---------+ + + + | 10/03/ | Office | Neurology | Fabián Carias MD | | | 2019 | Visit | | [address] | | | | | | [place] | | | | | | [address] | | | | | | | | +--------+---------+ + + + + +---------+--------+ + + | Name | Type | Priori | Associated Diagnoses | Order Schedule | | | | ty | | | + +---------+--------+ + + | CT Chest Abdomen | Imaging | Routin | Mediastinal | Expected: | | Pelvis w Contrast | | e | lymphadenopathy | 10/28/2018, Expires: | | | | | | 10/28/2019 | + +---------+--------+ + + documented as of this encounter [...] | | | care | | | Hatchery Laborer-C | | | | | | | [...] | | | care | | | Hatchery Laborer-C | | | | | | | [...] | | | care | | | Hatchery Laborer-C | | | | | | | [...] | | | care | | | Hatchery Laborer-C | | | | | | | linical | + +--------+ +---+-----+ + + + | Note: Pt will | | check CBG's daily x1 | | Pt will take Lantis as | | prescribed | + + documented as of this encounter Results Comprehensive Metabolic Panel (12/08/2018 12:30 PM PDT) + + + + + + | Component | Value | Ref Range | Performed | Pathologist | | | | | At | Signature | + + + + + + | Na | 121 (L) | 132 - 143 | [place] [...] + + + + | Cl | 86 (L) | 95 - 108 mmol/L | [...] + + + + | Glucose | 919 (HH) | 70 - 110 mg/dL | [place] | | | | | | [facility] | | | [facility] | | | | | [facility] | | + + + + + + | BUN | 37 (H) | 5 - 26 mg/dL | [place] | | | | | | [facility] | [facility] | [facility] | | | [facility] | | + + + + + + | Creatinine | 1.47 (H) | 0.60 - 1.30 | [place] | | | | | mg/dL | [facility] | [facility] | | | [facility] | | | | | [facility] | | + + + + + + | eGFR if not | 46 (L)Comment: | >=60 | [place] | | | | GLOMERULAR FILTRATION | mL/min/1.73m2 | [facility] | | | [facility] | RATE,ESTIMATED | [facility] | | | | mL/min/1.13o2Hfwj than | | REG[facility] | | | [...] + + + + | Albumin | 3.9 | 3.0 - 4.5 g/dL | [place] [...] 100 | 46 - 116 U/L | [facility] | | | Phosphatase | | | [facility] | | | [facility] | | | | | [facility] | | | | | | [facility] | | + + + + + + | Globulin | 4.8 (H) | 2.4 - 4.5 g/dL | [...] + + + + | BUN/Creatin | 25.2 (H) | 7.0 - 24.0 | [place] [...] + | [facility] | [address] | [place] [address] | [phone] | | [facility] | | | | | [facility] | | | | + + + + + CBC with Differential (12/08/2018 12:30 PM PDT) + + + + + + | Component | Value | Ref Range | Performed | Pathologist | | | | | At | Signature | + + + + + + | WBC | 9.6 | 4.6 - 10.5 K/uL | [facility] | | | | | | [facility] | [facility] | | | | | [facility] | | + + + + + + | RBC | 4.77 | 4.36 - 5.83 | [place] | | | | | M/uL | [facility] | [facility] | [facility] | | | | | [facility] | | + + + + + + | Hemoglobin | 14.6 | 13.1 - 17.4 | [place] | | | | | g/dL | [facility] | [facility] | | | | [facility] | | + + + + + + | Hematocrit | 41.4 | 39.0 - 51.9 % | [place] | | | | | | [facility] | | | [facility] | | | | | [facility] | | + + + + + + | MCV | 86.8 | 82.0 - 96.0 fL | [place] | | | | | | [facility] | [facility] | | | | [facility] | | + + + + + + | MCH | 30.6 | 27.7 - 32.3 pg | [facility] | | | | | | [facility] | | | [facility] | | | | | | [facility] | | + + + + + + | MCHC | 35.3 | 32.0 - 36.9 | [place] | [...] + + + + | Platelet | 196 | 150 - 450 K/uL | [place] [...] + + + + | % | 76.5 (H) | 42.0 - 76.0 % | [place] | | | Neutrophils | | | [facility] | [facility] | | | | | [facility] | | | | | | [facility] | | + + + + + + | % | 12.5 (L) | 20.0 - 40.0 % | [...] + + + + | % | 0.0 | 0.0 - 7.0 % | [place] | | | Eosinophils | | | [facility] | | [facility] | | | | | [facility] | | | | | | [facility] | | + + + + + + | % Basophils | 1.5 | 0.0 - 2.0 % | [facility] | | | | | | [facility] | | [facility] | | | | | [facility] | | | | | | [facility] | | + + + + + + | Absolute | 7.30 | 2.80 - 7.70 | [place] | | | Neutrophils | | K/uL | [facility] | | | | | [facility] | | | | | | [facility] | | | | | | [facility] | | + + + + + + | Absolute | 1.20 | 1.20 - 3.30 | [place] | | | Lymphocytes | | K/uL | [facility] | [facility] | | | | [facility] | | | | | | [facility] | | + + + + + + | Absolute | 0.90 (H) | 0.00 - 0.80 | [facility] | | | Monocytes | | K/uL | [facility] | | [facility] | | | | | [facility] | | | | | | [facility] | | + + + + + + | Absolute | 0.00 | 0.00 - 0.70 | [facility] | [...] | | Basophils | | K/uL | [facility] | | | | | [facility] [...] + + | [facility] | [address] | [place] [address] | [phone] | | [facility] | | | | | [facility] | | | | + + + + + documented in this encounter Visit Diagnoses + + | Diagnosis | + + | Mediastinal lymphadenopathy - Primary Enlargement of lymph nodes | [...]
--- OUTSIDE RECORDS SUMMARY | ~2019-02-17 | XMS | Encounter Summary ---
Demographics + + + | Address | [address] | | | [place] [address] | + + + | Home Phone [...] Team Providers + +------+ + | Care Butcher Fish Name | Role | Phone | + +------+ + | Ryan Gutiérrez MD | PCP | | + +------+ + Encounter Details +--------+ + + + + | Date | Type | Department | Care Team | Description | +--------+ + + + + | 01/03/ | Hospital | [facility] | Horacio Silvestre, | | | 2017 | Encounter | [facility] | DO [address] | | | | | [facility] [address] | [place], [place] | | | | | [address] [place], | [address] | | | | | [place] [address] | [phone] | | | | | [phone] | | | +--------+ + + + [...] [place] | | | | | | [address] | | | | | | [phone] | | | | | | | | +--------+---------+ + + + | 02/26/ | Office | Urology | Lillie Fowler | | | 2018 | Visit | | LILLIE Lopez [address] | | | | | | [address] | | | | | | [place], [place] | | | | | | [address] | | | | | | [phone] | | | | | | | | +--------+---------+ + + + | 03/16/ | Office | Neurology | Theresa, | | | 2018 | Visit | | SHONDA Mck[address]ney [address] | | | | | [address] [place], | | | | | | [place] [address] | | | | | | [phone] | | | | | | | | +--------+---------+ + + + | 04/12/ | Office | Primary Care | Massimo Ramos | | | 2019 | Visit | | MD Fer [address] | | | | | | [place] | | | | | | [address] | | | | | | | | +--------+---------+ + + + | 10/03/ | Office | Neurology | Fabián Carias MD | | | 2019 | Visit | | [address] | | | | | | [place] | | | | | | [address] | | | | | | | [...] | | | care | | | Chief Revenue Officer-C | | | | | | [...] | | | care | | | Chief Revenue Officer-C | | | | | | [...] | | | care | | | Chief Revenue Officer-C | | | | | | [...] | | | care | | | Chief Revenue Officer-C | | | | | | | linical | + +--------+ +---+-----+ + + + | Note: Pt will | | check CBG's daily x1 | | Pt will take Lantis as | | prescribed | + + documented as of this encounter Visit Diagnoses Not on filedocumented in this encounter"
--- OUTSIDE RECORDS SUMMARY | ~2019-02-17 | XMS | Encounter Summary ---
Demographics + + + | Address | [address] | | | [place] [address] | + + + | Home Phone | | + + + | Preferred Language | Unknown | + + + | Marital Status | | + + + | Confucianist Affiliation | 1025 | + + + | Race | Unknown | + + + | Ethnic Group | Unknown | + + + Author + + + | Author | [facility] | | | and [place] | + + + | Organization | [facility] | | [...] Team Providers + +------+ + | Care Geographic Information Systems Analyst Name | Role | Phone | [...] | +--------+ + + + + | 08/29/ | Telephone | [facility] | Horacio Silvestre, | Results | | 2018 | | [facility] | DO [address] | | | | | [facility] [address] | [place], [place] | | | | | [address] [place], | [address] | | | | | [place] [address] | [phone] | | | | | [phone] | | | +--------+ + + + [...] | 2019 | Visit | | DO Jaeln [address] | | | | | | [address] | | | | | | [place] | | | | | | [address] | | | | | | [phone] | | | | | | | | +--------+---------+ + + + | 02/26/ | Office | Urology | Lillie Fowler | | | 2018 | Visit | | [address] | | | | | | [address] | | | | | | [place] | | | | | | [address] | | | | | | [phone] | | | | | | | | +--------+---------+ + + + | 03/16/ | Office | Neurology | Theresa, | | | 2018 | Visit | | [address] | | | | | | [address], | | | | | | [place] [address] | | | | | | [phone] | | | | | | | | +--------+---------+ + + + | 04/12/ | Office | Primary Care | Massimo Ramos | | | 2019 | Visit | | MD Fer [address] | | | | | | [place] | | | | | | [address] | | | | | | | | +--------+---------+ + + + | 10/03/ | Office | Neurology | Fabián Carias MD | | | 2019 | Visit | | [address] | | | | | | [place] | | | | | | [address] | | | | | | | [...] | | | care | | | Mgmt Consultant-C | | | | | | [...] | | | care | | | Mgmt Consultant-C | | | | | | [...] | | | care | | | Mgmt Consultant-C | | | | | | [...] | | | care | | | Mgmt Consultant-C | | | | | | | linical | + +--------+ +---+-----+ + + + | Note: Pt will | | check CBG's daily x1 | | Pt will take Lantis as | | prescribed | + + documented as of this encounter Visit Diagnoses Not on filedocumented in this encounter"
--- OUTSIDE RECORDS SUMMARY | ~2019-02-17 | XMS | Encounter Summary ---
Demographics + + + | Address | [address] | | | [place] [address] | + + + | Home Phone [...] Team Providers + +------+ + | Care Golf Professional Name | Role | Phone | + +------+ + | Ryan Gutiérrez MD | PCP | | + +------+ + Encounter Details +--------+ + + + + | Date | Type | Department | Care Team | Description | +--------+ + + + + | 02/19/ | [facility] | María Marie | | | 2016 | Encounter | [facility] | Carlos, NUCLEAR PLANT OPERATOR [address] | | | | | [facility] [address] | [place], [place] | | | | [address] [place], | [address] | | | | | [place] [address] | [phone] | | | | | [phone] | | | +--------+ + + + [...] [place] | | | | | | [address] | | | | | | [phone] | | | | | | | | +--------+---------+ + + + | 02/26/ | Office | Urology | Lillie Fowler | | | 2018 | Visit | | LILLIE Lopez [address] | | | | | | [address] | | | | | | [place] | | | | | | [address] | | | | | | [phone] | | | | | | | | +--------+---------+ + + + | 03/16/ | Office | Neurology | Theresa, | | | 2018 | Visit | | [address] | | | | | | [address] [place], | | | | | | [place] [address] | | | | | | [phone] | | | | | | | | +--------+---------+ + + + | 04/12/ | Office | Primary Care | Massimo Ramos | | | 2019 | Visit | | MD Fer [address] | | | | | | [address] [place] | | | | | | [address] | | | | | | | | +--------+---------+ + + + | 10/03/ | Office | Neurology | Fabián Carias MD | | | 2019 | Visit | | [address] | | | | | | [place] | | | | | | [address] | | | | | | | [...] | | | care | | | Mainframe Consultant-C | | | | | | [...] | | | care | | | Mainframe Consultant-C | | | | | | [...] | | | care | | | Mainframe Consultant-C | | | | | | [...] | | | care | | | Mainframe Consultant-C | | | | | | | linical | + +--------+ +---+-----+ + + + | Note: Pt will | | check CBG's daily x1 | | Pt will take Lantis as | | prescribed | + + documented as of this encounter Visit Diagnoses Not on filedocumented in this encounter"
--- OUTSIDE RECORDS SUMMARY | ~2019-02-17 | XMS | Encounter Summary ---
Demographics + + + | Address | [address] | | | [place] [address] | + + + | Home Phone [...] + +------+ + | Care Director Of Automation Name | Role | Phone | + +------+ + | Ryan Gutiérrez MD | PCP | | + +------+ + Encounter Details +--------+ + + + + | Date | Type | Department | Care Team | Description | +--------+ + + + + | 03/07/ | Hospital | [facility] [facility] | Horacio Silvestre, | | | 2017 | Encounter | [facility] | DO [address] | | | | | MEDICAL CL[facility] [address] | [place], [place] | | | | | [address] [place], | [address] | | | | | [place] [address] | [phone] | | | | | [phone] | | | +--------+ + + + [...] [place] | | | | | | [address] | | | | | | [phone] | | | | | | | | +--------+---------+ + + + | 02/26/ | Office | Urology | Lillie Fowler | | | 2018 | Visit | | [address] | | | | | | [address] | | | | | | [place], [place] | | | | | | [address] | | | | | | [phone] | | | | | | | | +--------+---------+ + + + | 03/16/ | Office | Neurology | Theresa, | | | 2018 | Visit | | [address] | | | | | | [address] [place], | | | | | | [place] [address] | | | | | | [phone] | | | | | | | | +--------+---------+ + + + | 04/12/ | Office | Primary Care | Massimo Ramos | | | 2019 | Visit | | MD Fer [address] | | | | | | [address] [place], [place] | | | | | | [address] | | | | | | | | +--------+---------+ + + + | 10/03/ | Office | Neurology | Fabián Carias MD | | | 2019 | Visit | | [address] | | | | | | [place], [place] | | | | | | [address] | | | | | | | [...] | | care | | | Windows Systems Engineer-C | | | | | | [...] | | care | | | Windows Systems Engineer-C | | | | | | [...] | | care | | | Windows Systems Engineer-C | | | | | | [...] | | care | | | Windows Systems Engineer-C | | | | | | | linical | + +--------+ +---+-----+ + + + | Note: Pt will | | check CBG's daily x1 | | Pt will take Lantis as | | prescribed | + + documented as of this encounter Visit Diagnoses Not on filedocumented in this encounter"
--- OUTSIDE RECORDS SUMMARY | ~2019-02-17 | XMS | Encounter Summary ---
Demographics + + + | Address | [address] | | | [place] [address] | + + + | Home Phone [...] Providers + +------+ + | Care Coal Dumping Equipment Operator Name | Role | Phone [...] | | | thy | [place] | [address] | | | | | Procedures | [address] | Phone: | | | | | PET CT Skull | Phone: | [phone] | | | | | Base To Mid | [phone] | Fax: | | | | | Thigh PET | Fax: | [phone] | | | | | CT Limited | [phone] | | +--------+--------+ + + + + [...] | | | thy | [place] | [address] | | | | | Procedures | [address] | Phone: | | | | | PET CT Skull | Phone: | [phone] | | | | | Base To Mid | [phone] | Fax: | | | | | Thigh PET | Fax: | [phone] | | | | | CT Limited | [phone] | | +--------+--------+ + + + + [...] | | | | [place], [place] | [address] | | | | | [address] | [phone] | | | | | [phone] | | | +--------+ + + + [...] [place] | | | | | | [address] | | | | | | [phone] | | | | | | | | +--------+---------+ + + + | 02/26/ | Office | Urology | Lillie Fowler | | | 2018 | Visit | | [address] | | | | | | [address] | | | | | | [place], [place] | | | | | | [address] | | | | | | [phone] | | | | | | | | +--------+---------+ + + + | 03/16/ | Office | Neurology | Theresa, | | | 2018 | Visit | | [address] | | | | | | [address] [place], | | | | | | [place] [address] | | | | | | [phone] | | | | | | | | +--------+---------+ + + + | 04/12/ | Office | Primary Care | Massimo Ramos | | | 2019 | Visit | | MD Fer [address] | | | | | | [place] | | | | | | [address] | | | | | | | | +--------+---------+ + + + | 10/03/ | Office | Neurology | Fabián Carias MD | | | 2019 | Visit | | [address] | | | | | | [place] | | | | | | [address] | | | | | | | [...] | | | care | | | Transition Social Worker-C | | | | | | [...] | | | care | | | Transition Social Worker-C | | | | | | [...] | | | care | | | Transition Social Worker-C | | | | | | [...] | | | care | | | Transition Social Worker-C | | | | | | [...]
--- OUTSIDE RECORDS SUMMARY | ~2019-02-17 | XMS | Encounter Summary ---
Demographics + + + | Address | [address] | | | [place] [address] | + + + | Home Phone | | + + + | Preferred Language | Unknown | + + + | Marital Status | | + + + | Zoroastrian Affiliation | 1025 | + + + [...] Team Providers + +------+ + | Care And Rescue Fire Fighter Crash Fire Name | Role | Phone | + [...] + + + + | 01/30/ | Documentati | [facility] | Horacio Silvestre, | Other (certified | | 2017 | on | [facility] | DO [address] | mail ) | | | | MEDICAL CL[facility] [address] | [facility], [place] | | | | | [facility], | [address] | | | | | [place] [address] | [phone] | | | | | [phone] | | | +--------+ + + + [...] this encounter Progress Notes Lor Chopra - 01/30/2017 3:18 PM PDTOXYCODONE 5MG SENT To: [facility] ADDRESS: [address] [place] [address] TRACKING No: [id number] [phone] [id number] d ocumented in this encounter Plan of Treatment +--------+---------+ + + + | Date | Type | Specialty | Care Team | Description | +--------+---------+ + + + | 11/21/ | Office | General Surgery | Yennifer Scott | | | 2018 | Visit | | DO Jalen [address] | | | | | | [address] | | | | | | [place], [place] | | | | | | [address] | | | | | | [phone] | | | | | | | | +--------+---------+ + + + | 02/26/ | Office | Urology | Lillie Fowler | | | 2018 | Visit | | [address] | | | | | | [address] | | | | | | [place], [place] | | | | | | [address] | | | | | | [phone] | | | | | | | | +--------+---------+ + + + | 03/16/ | Office | Neurology | Theresa, | | | 2018 | Visit | | [address] | | | | | | [address] [place], | | | | | | [place] [address] | | | | | | [phone] | | | | | | | | +--------+---------+ + + + | 04/12/ | Office | Primary Care | Massimo Ramos Pedro Luis | | | 2019 | Visit | | MD Fer [address] | | | | | | [place] | | | | | | [address] | | | | | | | | +--------+---------+ + + + | 10/03/ | Office | Neurology | Fabián Carias MD | | | 2019 | Visit | | [address] | | | | | | [place] | | | | | | [address] | | | | | | | [...] | | | care | | | Cissp-C | | | | | | | [...] | | | care | | | Cissp-C | | | | | | | [...] | | | care | | | Cissp-C | | | | | | | [...] | | | care | | | Cissp-C | | | | | | | linical | + +--------+ +---+-----+ + + + | Note: Pt will | | check CBG's daily x1 | | Pt will take Lantis as | | prescribed | + + documented as of this encounter Visit Diagnoses Not on filedocumented in this encounter"
--- OUTSIDE RECORDS SUMMARY | ~2019-02-17 | XMS | Encounter Summary ---
Demographics + + + | Address | [address] | | | [place] [address] | + + + | Home Phone [...] Team Providers + +------+ + | Care Cooker Tender Name | Role | Phone | [...] | | | | | Syncope, | Fabián R, | [address] | | | | | unspecified | [address] | [place] | | | | | syncope type | [address], | [place], [place] | | | | | Procedures | [place] | [address] | | | | | ECHO | [place], [place] | Phone: | | | | | Complete | [address] | [phone] | | | | | | Phone: | Fax: | | | | | | [phone] | [phone] | | | | | | Fax: | | | | | | | [phone] | | +--------+--------+ + + + + [...] | | | | | Syncope, | Fabián R, | [address] | | | | | unspecified | [address] | [place] | | | | | syncope type | [address], | [place], [place] | | | | | Procedures | [place] | [address] | | | | | ECHO | [place], [place] | Phone: | | | | | Complete | [address] | [phone] | | | | | | Phone: | Fax: | | | | | | [phone] | [phone] | | | | | | Fax: | | | | | | | [phone] | | +--------+--------+ + + + + Encounter Details +--------+ + + + + | Date | Type | Department | Care Team | Description | +--------+ + + + + | 09/01/ | Hospital | [place] [facility] | Fabián Carias MD | Syncope, unspecified | | 2019 | Encounter | HOSPITAL ECHO [address] | [address] | syncope type | | | | [address] | [address] [place], [place] | | | | | [place], [place] | [address] | | | | | [address] | | | | | | [phone] | | | +--------+ + + + [...] [place] | | | | | | [address] | | | | | | [phone] | | | | | | | | +--------+---------+ + + + | 02/26/ | Office | Urology | Lillie Fowler | | | 2018 | Visit | | [address] | | | | | | [address] | | | | | | [place], [place] | | | | | | [address] | | | | | | [phone] | | | | | | | | +--------+---------+ + + + | 03/16/ | Office | Neurology | Theresa, | | | 2018 | Visit | | [address] | | | | | | [address] [place], | | | | | | [place] [address] | | | | | | [phone] | | | | | | | | +--------+---------+ + + + | 04/12/ | Office | Primary Care | Massimo Ramos | | | 2019 | Visit | | MD Fer [address] | | | | | | [address] [place], [place] | | | | | | [phone] | | | | | | | | +--------+---------+ + + + | 10/03/ | Office | Neurology | Fabián Carias MD | | | 2019 | Visit | | [address] | | | | | | [place] | | | | | | [address] | | | | | | | [...] | | | care | | | Lead Cytogenetic Technologist-C | | | | | | | [...] | | | care | | | Lead Cytogenetic Technologist-C | | | | | | | [...] | | | care | | | Lead Cytogenetic Technologist-C | | | | | | | [...] | | | care | | | Lead Cytogenetic Technologist-C | | | | | | | [...] + | ECHO COMPLETE | Routin | 09/01/2018 | Syncope, | | | | e | 3:13 PM | unspecified syncope | | | | | PDT | type | | + +--------+ + + + documented in this encounter Results ECHO Complete (09/01/2018 3:13 PM PDT) + [...]
--- OUTSIDE RECORDS SUMMARY | ~2019-02-17 | XMS | Encounter Summary ---
Demographics + + + | Address | [address] | | | [place] [address] | + + + | Home Phone | | + + + | Preferred Language | Unknown | + + + | Marital Status | | + + + | Restoration Affiliation | 1025 | + + + | Race | Unknown | + + + | Ethnic Group | Unknown | + + + Author + + + | Author | [facility] | | | and [place] | + + + | Organization | [facility] | | | and [...] Team Providers + +------+ + | Care Human Service Coordinator Name | Role | Phone | [...] | +--------+ + + + + | 07/02/ | Telephone | [facility] | Charline Banks, | Care Coordination | | 2018 | | HOSPITAL OP CASE | Case | | | | | MANAGEMENT [address] | [facility] | | | | | [address] | | | | | | [place] | | | | | | [address] | | | | | | [phone] | | | +--------+ + + + [...] [place] | | | | | | [address] | | | | | | [phone] | | | | | | | | +--------+---------+ + + + | 02/26/ | Office | Urology | Lillie Fowler | | | 2018 | Visit | | [address] | | | | | | [address] | | | | | | [place], [place] | | | | | | [address] | | | | | | [phone] | | | | | | | | +--------+---------+ + + + | 03/16/ | Office | Neurology | Theresa, | | | 2018 | Visit | | [address] | | | | | | [address] [place], | | | | | | [place] [address] | | | | | | [phone] | | | | | | | | +--------+---------+ + + + | 04/12/ | Office | Primary Care | Massimo Ramos | | | 2019 | Visit | | MD Fer [address] | | | | | | [place] | | | | | | [address] | | | | | | | | +--------+---------+ + + + | 10/03/ | Office | Neurology | Fabián Carias MD | | | 2019 | Visit | | [address] | | | | | | [place] | | | | | | [address] | | | | | | | [...] | | | care | | | Rebeamer-C | | | | | | | [...] | | | care | | | Rebeamer-C | | | | | | | [...] | | | care | | | Rebeamer-C | | | | | | | [...] | | | care | | | Rebeamer-C | | | | | | | linical | + +--------+ +---+-----+ + + + | Note: Pt will | | check CBG's daily x1 | | Pt will take Lantis as | | prescribed | + + documented as of this encounter Visit Diagnoses Not on filedocumented in this encounter"
--- OUTSIDE RECORDS SUMMARY | ~2019-02-17 | XMS | Encounter Summary ---
Demographics + + + | Address | [address] | | | [place] [address] | + + + | Home Phone [...] Team Providers + +------+ + | Care Cryptographic Clerk Name | Role | Phone | + +------+ + | Ryan Gutiérrze MD | PCP | | + +------+ [...] | [address] [place], [place] | [place] [address] | | | | | [address] | [phone] | | | | | [phone] | | | +--------+ + + + [...] [place] | | | | | | [address] | | | | | | [phone] | | | | | | | | +--------+---------+ + + + | 02/26/ | Office | Urology | Lillie Fowler | | | 2018 | Visit | | [address]IE [address] | | | | | | [address] | | | | | | [place] | | | | | | [address] | | | | | | [phone] | | | | | | | | +--------+---------+ + + + | 03/16/ | Office | Neurology | Theresa, | | | 2018 | Visit | | [address] | | | | | | [address] [place], | | | | | | [place] [address] | | | | | | [phone] | | | | | | | | +--------+---------+ + + + | 04/12/ | Office | Primary Care | Massimo Ramos | | | 2019 | Visit | | MD Fer [address] | | | | | | [place] | | | | | | [address] | | | | | | | | +--------+---------+ + + + | 10/03/ | Office | Neurology | Fabián Carias MD | | | 2019 | Visit | | [address] | | | | | | [place] | | | | | | [address] | | | | | | | [...] | | | care | | | Filling Technician-C | | | | | | [...] | | | care | | | Filling Technician-C | | | | | | [...] | | | care | | | Filling Technician-C | | | | | | [...] | | | care | | | Filling Technician-C | | | | | | [...]
--- OUTSIDE RECORDS SUMMARY | ~2019-02-17 | XMS | Encounter Summary ---
Demographics + + + | Address | [address] | | | [place] [address] | + + + | Home Phone [...] Team Providers + +------+ + | Care Abrasive Sawyer Name | Role | Phone | + +------+ + | Horacio Silvestre DO | PCP | | + +------+ + Reason for Visit + + + | Reason | Comments | + + + | Home Health | verbal order | + + + Encounter Details +--------+ + + + + | Date | Type | Department | Care Team | Description | +--------+ + + + + | 12/03/ | Telephone | [facility] [facility] | Horacio Silvestre, | Home Health (verbal | | 2019 | | [facility] | DO [address] | order) | | | | MEDICAL CL[facility] [address] | [facility], [place] | | | | | [address] [place], | [address] | | | | | [place] [address] | [phone] | | | | | [phone] | | | +--------+ + + + [...] [place] | | | | | | [address] | | | | | | [phone] | | | | | | | | +--------+---------+ + + + | 02/26/ | Office | Urology | Lillie Fowler | | | 2018 | Visit | | [address] | | | | | | [address] | | | | | | [place], [place] | | | | | | [address] | | | | | | [phone] | | | | | | | | +--------+---------+ + + + | 03/16/ | Office | Neurology | Theresa, | | | 2018 | Visit | | [address] | | | | | | [address] [place], | | | | | | [place] [address] | | | | | | [phone] | | | | | | | | +--------+---------+ + + + | 04/12/ | Office | Primary Care | Massimo Ramos | | | 2019 | Visit | | MD Fer [address] | | | | | | [place] | | | | | | [address] | | | | | | | | +--------+---------+ + + + | 10/03/ | Office | Neurology | Fabián Carias MD | | | 2019 | Visit | | [address] | | | | | | [place] | | | | | | [address] | | | | | | | [...] | | | care | | | Grinder Set Up Operator Surface-C | | | | | | | [...] | | | care | | | Grinder Set Up Operator Surface-C | | | | | | | [...] | | | care | | | Grinder Set Up Operator Surface-C | | | | | | | [...] | | | care | | | Grinder Set Up Operator Surface-C | | | | | | | [...]
--- OUTSIDE RECORDS SUMMARY | ~2019-02-17 | XMS | Encounter Summary ---
Demographics + + + | Address | [address] | | | [place] [address] | + + + | Home Phone [...] Team Providers + +------+ + | Care Finished Metal Repairer Name | Role | Phone | + +------+ + | Horacio Silvestre DO | PCP | | + +------+ + Reason for Visit +--------+ + | Reason | Comments | +--------+ + | Other | Please advise | +--------+ + Encounter Details +--------+ + + + + | Date | Type | Department | Care Team | Description | +--------+ + + + + | 05/21/ | Telephone | [facility] | Fabián Carias MD | Other (Please | | 2019 | | [facility]OS[facility] | [address] | advise) | | | | CLINIC [address] | [place], [place] | | | | | [address] [place], | [address] | | | | | [place] [address] | | | | | | [phone] | | | +--------+ + + + [...] [place] | | | | | | [address] | | | | | | [phone] | | | | | | | | +--------+---------+ + + + | 02/26/ | Office | Urology | Lillie Fowler | | | 2018 | Visit | | [address] | | | | | | [address] | | | | | | [place], [place] | | | | | | [address] | | | | | | [phone] | | | | | | | | +--------+---------+ + + + | 03/16/ | Office | Neurology | Theresa, | | | 2018 | Visit | | [address] | | | | | | [address] [place], | | | | | | [place] [address] | | | | | | [phone] | | | | | | | | +--------+---------+ + + + | 04/12/ | Office | Primary Care | Massimo Ramos Pedro Luis | | | 2019 | Visit | | MD Fer [address] | | | | | | [place] | | | | | | [address] | | | | | | | | +--------+---------+ + + + | 10/03/ | Office | Neurology | Fabián Carias MD | | | 2019 | Visit | | [address] | | | | | | [place] | | | | | | [address] | | | | | | | [...] | | | care | | | Group Segment Consultant-C | | | | | | [...] | | | care | | | Group Segment Consultant-C | | | | | | [...] | | | care | | | Group Segment Consultant-C | | | | | | [...] | | | care | | | Group Segment Consultant-C | | | | | | | linical | + +--------+ +---+-----+ + + + | Note: Pt will | | check CBG's daily x1 | | Pt will take Lantis as | | prescribed | + + documented as of this encounter Visit Diagnoses Not on filedocumented in this encounter"
--- OUTSIDE RECORDS SUMMARY | ~2019-02-17 | XMS | Encounter Summary ---
Demographics + + + | Address | [address] | | | [place] [address] | + + + | Home Phone [...] + + | Author | [facility] | | | and [place] | + + + | Organization | [facility] | | | [...] Team Providers + +------+ + | Care Audio Technician Name | Role | Phone | + +------+ + | Horacio Silvestre DO | PCP | | + +------+ + Reason for Visit + + + | Reason | Comments | + + + | Follow-up | ER Pneumonia | + + + Encounter Details +--------+---------+ + + + | Date | Type | Department | Care Team | Description | +--------+---------+ + + + | 08/21/ | Office | [facility] | Faraz Tejada, | History of pneumonia | | 2018 | Visit | [facility] | DNP [address] | (Primary Dx); | | | | [facility] [address] | [place] [address] | Intractable vomiting | | | | [address] [place], | [phone] | with nausea, | | | | [place] [address] | | unspecified vomiting | | | | [phone] | | type; Dysuria | +--------+---------+ + + + Social History [...] + + + | Blood Pressure | 134/64 | 08/21/2017 10:43 AM | | | | | PDT | | + + + + + | Pulse | 56 | 08/21/2017 10:43 AM | | | | | PDT | | + + + + + | Temperature | 36.5 C (97.7 F) | 08/21/2017 10:43 AM | | | | | PDT | | + + + + + | Respiratory Rate | 18 | 08/21/2017 10:43 AM | | | | | PDT | | + + + + + | Oxygen Saturation | 92% | 08/21/2017 10:43 AM | | | | | PDT | | + + + + + | Inhaled Oxygen | - | - | | | Concentration | | | | + + + + + | Weight | 93.4 kg (206 lb) | 08/21/2017 10:43 AM | | | | | PDT | | + + + + + | Height | - | - | | + + + + + | Body Mass Index | 33.25 | 08/19/2017 2:40 PM | | | | | PDT [...] as of this encounter Progress Notes Faraz Tejada DNP - 08/21/2017 11:00 AM PDTFormatting of this note might be different fro m the original. Patient ID: Geraldo Mcfadden is a 77 y.o. year old male Chief Complaint: Chief Complaint Patient presents with Follow-up ER Pneumonia Assessment and Plan: 1. History of pneumonia - CBC with Differential; Future - Comprehensive Metabolic Panel; Future - C-Reactive Protein; Future - Sedimentation Rate; Future - Well resolved as demonstrated on CXR from 08/19/17 2. Intractable vomiting with nausea, unspecified vomiting type - Due to abdominal surgery history, I am somewhat concerned about the possibility of adhesi ons in the abdominal cavity that could lead to small bowel obstruction. We will initiate co nservative treatment with cessation of irritating antibiotics, as I no longer feel they are needed, treatment with anti-emetics, and administration of laxative suppositories to stimula te bowel movement. - ondansetron (ZOFRAN ODT) 4 mg disintegrating tablet; Take 1 tablet by mouth every 6 hours as needed for Nausea or Vomiting. Dispense: 20 tablet; Refill: 0 - C-Reactive Protein; Future - Sedimentation Rate; Future - Imaging confirms pneumonia is resolved at this time. Discontinue use of Azithromycin and Cefdinir as previously ordered. - Use dulcolax suppository just in case nausea is influenced by a constipated state. - Mallory tova, water, gatorade all discussed as potential sources for hydration. Instructed to avoid caffeinated beverages as they tend to be dehydrating. 3. Dysuria - Urinalysis with Microscopic with Culture if Indicated; Future Follow-up in the clinic on Friday or Friday if symptoms persist. If symptoms are persiste nt, I will order a CT scan for evaluation of the abdominal cavity for structural causes of n ausea and vomiting. The patient was instructed that if abdominal pain should become more apparent or signs and symptoms of infection develop he should go to the emergency room for evaluation and treatmen t. He states understanding. Subjective: Ed Rodriguez) is a 77-year-old male presenting to the clinic today to follow-up r egarding pneumonia and to discuss nausea and vomiting. He was last seen in the emergency de partment on 08/19/2017 regarding the nausea and vomiting. He had been on azithromycin and Ce fdinir for his pneumonia. Chest x-ray was repeated during this emergency room encounter and did not demonstrate any acute findings. Pneumonia appears to be resolved according to this imaging. Dr. Clay MD felt that the nausea and vomiting were likely due to gastritis cau sed by oral azithromycin. He was given his fifth and final dose of azithromycin via IV whil e in the emergency department as well as getting a dose of IV Rocephin. He was instructed t o restart his Cefdinir after a 24-hour waiting period. Substantial improvement of nausea wa s noted upon IV administration of Zofran in the emergency department. The patient was able to eat some food and take a pain pill prior to being discharged in stable condition. Mayco martins reports that in transit from the hospital to home the nausea returned and they had to stop the car so he could throw up. He states that he has had continued nausea for the past 2 da ys with very little oral intake. He attempted to take Zofran ODT, but the taste made him na useous. He has only attempted to take Zofran ODT one time. He denies shortness of breath, wheezing, chest pain, or productive cough. He is experiencing profound fatigue and has been having some chills, but his temperature has been normal for himself. Vital signs are curre ntly stable and urine output is not currently decreased, with no darkening of urine color or foul odor. He has a history significant for appendectomy and bowel perforation with subsequent ostomy for several months. Ostomy takedown surgery was performed 11/29/15. He later developed a ve ntral hernia involving the ostomy site which required ventral hernia repair with mesh (). Allergies: Allergies Allergen Reactions Zolpidem Anaphylaxis Social [...] 1 tablet b y mouth every day (Patient not taking: Reported on 08/21/2017) 7 tablet 0 cefdinir (OMNICEF) 300 mg capsule Take 1 capsule by mouth 2 times daily for 7 days. (Henok rogers not taking: Reported on 08/21/2017) 14 capsule 0 cholecalciferol (VITAMIN D-3) 1,000 units tablet Take 2,000 Units by mouth Daily. colchicine 0.6 mg tablet Take 0.6 mg by mouth 2 times daily. cyanocobalamin (VITAMIN B-12) 1000 MCG tablet Take 1 tablet by mouth Daily. 90 tablet 3 fluticasone (FLONASE) 50 mcg/nasal spray 2 sprays by Nasal route Daily. 16 g 4 hydroCHLOROthiazide 25 mg tablet Take 12.5 mg by mouth Daily. insulin aspart (NOVOLOG) [...] 0 pregabalin (LYRICA) 300 MG capsule Take 300 mg by mouth 2 times daily. sertraline (ZOLOFT) 100 mg tablet Take 150 mg by mouth Daily. tamsulosin (FLOMAX) 0.4 mg CAPS Take 0.4 mg by mouth nightly. tiotropium (SPIRIVA) 18 mcg inhalation capsule Inhale 18 mcg into the lungs Daily. traZODone (DESYREL) 50 mg tablet Take 50 mg by mouth nightly. No current facility-administered medications for this visit. Review of Systems Constitutional: Positive for chills and fatigue. Negative for diaphoresis and fever. HENT: Positive for congestion (known environmental allergies.). Respiratory: Negative for cough, shortness of breath and wheezing. Gastrointestinal: Positive for abdominal distention, constipation ( Hasn't been having man y bowel movements, but hasn't been eating much either.), diarrhea (what bowel movements he h as had have been somewhat loose and very yellow in color.), nausea and vomiting. Negative fo r abdominal pain, anal bleeding, blood in stool and rectal pain. Genitourinary: Positive for dysuria (occasional mild.). Negative for flank pain. Musculoskeletal: Positive for back pain (chronic). 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 Undergoing treatment with dermatology. Allergic/Immunologic: Positive for environmental allergies. Neurological: Negative for dizziness, syncope and light-headedness. Objective: Vitals: BP 134/64 | Pulse 56 | Temp 36.5 C (97.7 F) | Resp 18 | Wt 93.4 kg (206 lb) | SpO2 92% | BMI 33.25 kg/m Physical Exam Constitutional: He is oriented to person, place, and time. He appears well-developed and we ll-nourished. He appears distressed (Mildly distressed). HENT: Head: Normocephalic. Cardiovascular: Normal rate, regular rhythm and normal heart sounds. No murmur heard. Pulmonary/Chest: Effort normal and breath sounds normal. No respiratory distress. He has no wheezes. He has no rales. Abdominal: Bowel sounds are normal. He exhibits distension (tightness and discomfort noted upon palpation of the epigastric region of the abdomen.). He exhibits no mass. There is no t enderness. There is no rebound and no guarding. Musculoskeletal: Normal range of motion. Neurological: He is alert and oriented to person, place, and time. No cranial nerve deficit . Skin: Skin is warm and dry. He is not diaphoretic. Localized areas of erythema to forearms bilaterally due to dermatological procedure. 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 Psychiatric: He has a normal mood and affect. His behavior is normal. Judgment and thought content normal. documented in this en counter Plan of [...] [place] | | | | | | [address] | | | | | | [phone] | | | | | | | | +--------+---------+ + + + | 02/26/ | Office | Urology | Lilile Fowler | | | 2019 | Visit | | LILLIE Lopez [address] | | | | | | [address] | | | | | | [place] | | | | | | [address] | | | | | | [phone] | | | | | | | | +--------+---------+ + + + | 03/16/ | Office | Neurology | Theresa, | | | 2018 | Visit | | [address]DA [address] | | | | | [address] [place], | | | | | | [place] [address] | | | | | | [phone] | | | | | | | | +--------+---------+ + + + | 04/12/ | Office | Primary Care | Massimo Ramos | | | 2019 | Visit | | MD Fer [address] | | | | | | [place] | | | | | | [address] | | | | | | | | +--------+---------+ + + + | 10/03/ | Office | Neurology | Fabián Carias MD | | | 2019 | Visit | | [address] | | | | | | [place] | | | | | | [address] | | | | | | | [...] | | | care | | | Can Stacker-C | | | | | | [...] | | | care | | | Can Stacker-C | | | | | | [...] | | | care | | | Can Stacker-C | | | | | | [...] | | | care | | | Can Stacker-C | | | | | | | linical | + +--------+ +---+-----+ + + + | Note: Pt will | | check CBG's daily x1 | | Pt will take Lantis as | | prescribed | + + documented as of this encounter Results Sedimentation Rate (08/21/2017 11:48 AM PDT) + +-------+ + + + | Component | Value | Ref Range | Performed | Pathologist | | | | | At | Signature | + +-------+ + + + | ESR | 11 | 0 - 20 mm/hr | [facility] | | | | | [...] + + | [facility] | [address] | [place] [address] | [phone] | | [facility] | | | | + + + + + C-Reactive Protein (08/21/2017 11:48 AM PDT) + +-------+ + + + | Component | Value | Ref Range | Performed | Pathologist | | | | | At | Signature | + +-------+ + + + | C-Reactive | 0.4 | 0.0 - 0.9 mg/dL | [facility] | | | Protein | | | [facility] | | | | [facility] | | | | | | [facility] | | | | | | [facility] | | + +-------+ + + + + + | Specimen | + + | Blood | + + + + + + + | Performing | Address | City/State/Zipcode | Phone Number | | Organization | | | | + + + + + | [facility] | [address] | [place] [address] | [phone] | | [facility] | | [facility] | | | | + + + + + Urinalysis with Microscopic with Culture if Indicated (08/21/2017 11:48 AM PDT) + + + + + [...] - 1.030 | [facility] | | | [place] | | | [facility] | | | [...] [facility] | [address] | [place] [address] | [phone] | | [facility] | | | [facility] | | | | + + + + + Comprehensive Metabolic Panel (08/21/2017 11:48 AM PDT) + + + + + [...] + + + + | Glucose | 99 | 70 - 110 mg/dL | [facility] | | | | | | [facility] | | | | | [facility] | | | | | | [facility] | | | | | | [facility] | | + + + + + + | BUN | 18 | 5 - 26 mg/dL | [facility] | | | | | | [facility] | | | | | [facility] | | | | | [facility] | | | | | | [facility] | | + + + + + + | Creatinine | 1.36 (H) | 0.60 - 1.30 | [facility] | | | | | mg/dL | [facility] | | | | | | [facility] | | | | | | [facility] | | | | | | [facility] | | + + + + + + | eGFR if not | 51 (L)Comment: | >=60 | [facility] | | | | GLOMERULAR FILTRATION | mL/min/1.73m2 | [facility] | | | [facility] | R[facility],ESTIMATED | | [facility] | | | | mL/min/1.92y3Parh than | | [facility] | | | [...] + + + + | Calcium | 9.1 | 8.3 - 10.0 | [facility] | | | | | mg/dL | [facility] | | | | | | [facility] | | | | | | [facility] | | | | | | [facility] | | + + + + + + | Albumin | 4.3 | 3.0 - 4.5 g/dL | [facility] [...] + + + + | AST | 69 (H) | 0 - 38 U/L | [facility] | | | | | | [facility] | | | | | [facility] | | | | | [facility] | | | | | | [facility] | | + + + + + + | ALT | 84 (H) | 16 - 63 U/L | [facility] | | | | | | [facility] | | | | | [facility] | | | | | | [facility] | | | | | | [facility] | | + + + + + + | Alkaline | 75 | 46 - 116 U/L | [facility] [...] + + + + | BUN/Creatin | 13.2 | 7.0 - 24.0 | [facility] | [...] + + + | [facility] | [address] | [place] [address] | [phone] | | [facility] | | | | [facility] | | | | + + + + + CBC with Differential (08/21/2017 11:48 AM PDT) + + + + + + | Component | Value | Ref Range | Performed | Pathologist | | | | | At | Signature | + + + + + + | WBC | 10.8 (H) | 4.6 - 10.5 K/uL | [...] + + + + | Hemoglobin | 15.5 | 13.1 - 17.4 | [facility] | | | | | g/dL | [facility] | | | | | [facility] | | | | | [facility] | | | | | | [facility] | | + + + + + + | Hematocrit | 44.8 | 39.0 - 51.9 % | [facility] [...] + + + + | MCH | 32.5 (H) | 27.7 - 32.3 pg | [facility] | | | | | | [facility] | | | | | [facility] | | [facility] | | | | | [facility] | | + + + + + + | MCHC | 34.6 | 32.0 - 36.9 | [facility] | | | | | g/dL | [facility] | | | | | [facility] | | | | [facility] | | | | | | [facility] | | + + + + + + | RDW-CV | 15.1 | 0.0 - 17.0 % | [facility] | | | | | | [facility] | | | | | [facility] | | | | | [facility] | | | | | | [facility] | | + + + + + + | Platelet | 198 | 150 - 450 K/uL | [facility] | | | Count | | | [facility] | | | | | [facility] | | | [facility] | | | | | [facility] | | + + + + + + | MPV | 8.7 (L) | 9.4 - 12.4 fL | [facility] | | | | | | [facility] | [facility] | | [facility] | | | | | [facility] | | + + + + + + | % | 66.7 | 42.0 - 76.0 % | [facility] | | | Neutrophils | | | [facility] | | | | | [facility] | | | | | [facility] | | | | | | [facility] | | + + + + + + | % | 18.3 (L) | 20.0 - 40.0 % | [facility] | | | Lymphocytes | | | [facility] | | | | | [facility] | | | | | [facility] | | | | | | [facility] | | + + + + + + | % Monocytes | 13.4 (H) | 0.0 - 12.0 % | [facility] | | | | | | [facility] | | | | [facility] | | | [facility] | | | | | [facility] | | + + + + + + | % | 1.0 | 0.0 - 7.0 % | [facility] | | | Eosinophils | | | [facility] | | | | | [facility] | | | | | [facility] | | | | | | [facility] | | + + + + + + | % Basophils | 0.6 | 0.0 - 2.0 % | [facility] | | | | | | [facility] | | | | | [facility] | | | | | [facility] | | | | | | [facility] | | + + + + + + | Absolute | 7.20 | 2.80 - 7.70 | [facility] | | | Neutrophils | | K/uL | [facility] | | | | [facility] | | | | [facility] | | | | | | [facility] | | + + + + + + | Absolute | 2.00 | 1.20 - 3.30 | [facility] | | | Lymphocytes | | K/uL | [facility] | | | | [facility] | | | | | [facility] | | | | | | [facility] | | + + + + + + | Absolute | 1.40 | 0.00 - 1.60 | [facility] | | | Monocytes | | K/uL | [facility] | | [facility] | | | | [facility] | | | | | | [facility] | | + + + + + + | Absolute | 0.10 | 0.00 - 0.70 | [facility] | [...] + + | [facility] | [address] | [place] [address] | [phone] | | [facility] | | | | | [facility] | | | | + + + + + documented in this encounter Visit Diagnoses + + | Diagnosis | + + | History of pneumonia - Primary Personal history of pneumonia (recurrent) | + + | Intractable vomiting with nausea, unspecified vomiting type | + + | Dysuria | + + documented in this encounter"
--- OUTSIDE RECORDS SUMMARY | ~2019-02-17 | XMS | Encounter Summary ---
Demographics + + + | Address | [address] | | | [place] [address] | + + + | Home Phone [...] Team Providers + +------+ + | [place] Agricultural Agent Name | Role | Phone | [...] [address] | | | | | [place] [address] | | | | | | [phone] | | | +--------+ + + + [...] [place] | | | | | | [address] | | | | | | [phone] | | | | | | | | +--------+---------+ + + + | 02/26/ | Office | Urology | Lillie Fowler | | | 2018 | Visit | | LILLIE Lopez [address] | | | | | | [address] | | | | | | [place], [place] | | | | | | [address] | | | | | | [phone] | | | | | | | | +--------+---------+ + + + | 03/16/ | Office | Neurology | Theresa, | | | 2018 | Visit | | SHONDA [address] | | | | | [address] [place], | | | | | | [place] [address] | | | | | | [phone] | | | | | | | | +--------+---------+ + + + | 04/12/ | Office | Primary Care | Massimo Ramos Pedro Luis | | | 2019 | Visit | | MD Fer [address] | | | | | | [place] | | | | | | [address] | | | | | | | | +--------+---------+ + + + | 10/03/ | Office | Neurology | Fabián Carias MD | | | 2019 | Visit | | [address] | | | | | | [place] | | | | | | [address] | | | | | | | [...] | | | care | | | Safe Deposit Box Rental Clerk-C | | | | | | [...] | | | care | | | Safe [employer] Box Rental Clerk-C | | | | | | [...] | | | care | | | Safe [employer] Box Rental Clerk-C | | | | | | [...] | | | care | | | Safe Deposit Box Rental Clerk-C | | | | | | | linical | + +--------+ +---+-----+ + + + | Note: Pt will | | check CBG's daily x1 | | Pt will take Lantis as | | prescribed | + + documented as of this encounter Visit Diagnoses Not on filedocumented in this encounter"
--- OUTSIDE RECORDS SUMMARY | ~2019-02-17 | XMS | Encounter Summary ---
Demographics + + + | Address | [address] | | | [place] [address] | + + + | Home Phone | | + + + | Preferred Language | Unknown | + + + | Marital Status | | + + + | Yazidi Affiliation | 1025 | + + + | Race | Unknown | + + + | Ethnic Group | Unknown | + + + Author + + + | Author | [facility] | | | and [place] | + + + | Organization | [facility] | | [...] Team Providers + +------+ + | Care Collection Analyst Name | Role | Phone | + +------+ + | Horacio Silvestre DO | PCP | | + +------+ + Reason for Visit + + + | Reason | Comments | + + + | Medication Orders | | + + + | Home Health | | + + + Encounter Details +--------+ + + + + | Date | Type | Department | Care Team | Description | +--------+ + + + + | 10/28/ | Telephone | [facility] | Horacio Silvestre, | Medication Orders; | | 2019 | | [facility] | [address] [place] | Home Health | | | | [facility] [address] | [facility], [place] | | | | | [address] [facility], | [address] | | | | | [place] [address] | [phone] | | | | | [phone] | | | +--------+ + + + [...] DR | | | | | | [place], [place] | | | | | | [address] | | | | | | [phone] | | | | | | | | +--------+---------+ + + + | 02/26/ | Office | Urology | Lillie Fowler | | | 2018 | Visit | | LILLIE Lopez [address] | | | | | | [address] | | | | | | [place], [place] | | | | | | [address] | | | | | | [phone] | | | | | | | | +--------+---------+ + + + | 03/16/ | Office | Neurology | Theresa, | | | 2018 | Visit | | [address] | | | | | [address] [place], | | | | | | [place] [address] | | | | | | [phone] | | | | | | | | +--------+---------+ + + + | 04/12/ | Office | Primary Care | Massimo Ramos Pedro Luis | | | 2019 | Visit | | MD Fer [address] | | | | | | [place] | | | | | | [address] | | | | | | | | +--------+---------+ + + + | 10/03/ | Office | Neurology | Fabián Carias MD | | | 2019 | Visit | | [address] | | | | | | [place] | | | | | | [address] | | | | | | | [...] | | | care | | | Order Schedule Clerk-C | | | | | | [...] | | | care | | | Order Schedule Clerk-C | | | | | | [...] | | | care | | | Order Schedule Clerk-C | | | | | | [...] | | | care | | | Order Schedule Clerk-C | | | | | | [...]
--- OUTSIDE RECORDS SUMMARY | ~2019-02-17 | XMS | Encounter Summary ---
Demographics + + + | Address | [address] | | | [place] [address] | + + + | Home Phone [...] Providers + +------+ + | Care Certified Anesthesiologist Assistant Name | Role | Phone | [...] Medication Refill; | | 2017 | | [facility] | [address] | Medication Refill | | | | [facility] | [facility], [place] | | | | | [address] [place], | [address] | | | | | [place] [address] | [phone] | | | | | [phone] | | | +--------+--------+ + + + [...] [place] | | | | | | [address] | | | | | | [phone] | | | | | | | | +--------+---------+ + + + | 02/26/ | Office | Urology | Lillie Fowler | | | 2018 | Visit | | LILLIE Lopez [address] | | | | | | [address] | | | | | | [place], [place] | | | | | | [address] | | | | | | [phone] | | | | | | | | +--------+---------+ + + + | 03/16/ | Office | Neurology | Theresa, | | | 2018 | Visit | | SHONDA M[address] | | | | | [address] [place], | | | | | | [place] [address] | | | | | | [phone] | | | | | | | | +--------+---------+ + + + | 04/12/ | Office | Primary Care | Massimo Ramos | | | 2019 | Visit | | MD Fer [address] | | | | | | [place] | | | | | | [address] | | | | | | | | +--------+---------+ + + + | 10/03/ | Office | Neurology | Fabián Carias MD | | | 2019 | Visit | | [address] | | | | | | [place] | | | | | | [address] | | | | | | | [...] | | | care | | | Ela Teacher-C | | | | | | [...] | | | care | | | Ela Teacher-C | | | | | | [...] | | | care | | | Ela Teacher-C | | | | | | [...] | | | care | | | Ela Teacher-C | | | | | | [...] | unspecified | + + | 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
--- OUTSIDE RECORDS SUMMARY | ~2019-02-17 | XMS | Encounter Summary ---
Demographics + + + | Address | [address] | | | [place] [address] | + + + | Home Phone [...] Team Providers + +------+ + | Care Structural Metal Worker Name | Role | Phone | [...] | | | [address] [place], | [facility], [place] | | | | | [place] [address] | [address] | | | | | [phone] | [phone] | | | | | | | [...] [place] | | | | | | [address] | | | | | | [phone] | | | | | | | | +--------+---------+ + + + | 02/26/ | Office | Urology | Lillie Fowler | | | 2018 | Visit | | LILLIE Lopez [address] | | | | | | [address] | | | | | | [place] | | | | | | [address] | | | | | | [phone] | | | | | | | | +--------+---------+ + + + | 03/16/ | Office | Neurology | Theresa, | | | 2018 | Visit | | SHONDA M[address] | | | | | [address] [place], | | | | | | [place] [address] | | | | | | [phone] | | | | | | | | +--------+---------+ + + + | 04/12/ | Office | Primary Care | Massimo Ramos | | | 2019 | Visit | | MD Fer [address] | | | | | | [place] | | | | | | [address] | | | | | | | | +--------+---------+ + + + | 10/03/ | Office | Neurology | Fabián Carias MD | | | 2019 | Visit | | [address] | | | | | | [place] | | | | | | [address] | | | | | | | [...] | | | care | | | Emergency Medical Technician/Driver-C | | | | | | | [...] | | | care | | | Emergency Medical Technician/Driver-C | | | | | | | [...] | | | care | | | Emergency Medical Technician/Driver-C | | | | | | | [...] | | | care | | | Emergency Medical Technician/Driver-C | | | | | | | linical | + +--------+ +---+-----+ + + + | Note: Pt will | | check CBG's daily x1 | | Pt will take Lantis as | | prescribed | + + documented as of this encounter Visit Diagnoses Not on filedocumented in this encounter"
--- OUTSIDE RECORDS SUMMARY | ~2019-02-17 | XMS | Encounter Summary ---
Demographics + + + | Address | [address] | | | [place] [address] | + + + | Home Phone [...] Team Providers + +------+ + | Care Salmon Gillnet Vessel Operator Name | Role | Phone | [...] | CENTER [address] | [place] [address] | akathisia (Primary | | | | [place], [place] | [phone] | Dx); Dehydration; | | | | [address] | | Subclinical | | | | [phone] | | hyperthyroidism; | | | | [...] be sent through Care Everywhere.Renal Insuffici ency (Romanian)Drug Reaction, Other (Romanian)Dehydration (Adult) (Romanian)Hyperthyroidism (En karine)documented in this encounter Medications at [...] [place] | | | | | | [address] | | | | | | [phone] | | | | | | | | +--------+---------+ + + + | 02/26/ | Office | Urology | Lillie Fowler | | | 2018 | Visit | | [address] | | | | | | [address] | | | | | | [place], [place] | | | | | | [address] | | | | | | [phone] | | | | | | | | +--------+---------+ + + + | 03/16/ | Office | Neurology | Theresa, | | | 2018 | Visit | | [address] | | | | | | [address] [place], | | | | | | [place] [address] | | | | | | [phone] | | | | | | | | +--------+---------+ + + + | 04/12/ | Office | Primary Care | Massimo Ramos | | | 2019 | Visit | | MD Fer [address] | | | | | | [place], [place] | | | | | | [address] | | | | | | | | +--------+---------+ + + + | 10/03/ | Office | Neurology | Fabián Carias MD | | | 2019 | Visit | | [address] | | | | | | [place], [place] | | | | | | [address] | | | | | | | [...] | | | care | | | Ceiling Installer-C | | | | | | [...] | | | care | | | Ceiling Installer-C | | | | | | [...] | | | care | | | Ceiling Installer-C | | | | | | [...] | | | care | | | Ceiling Installer-C | | | | | | [...] 1.030 | [place] | | | [facility] | | | [facility] | | | [...] + + | [place] [facility] | [address] | [place] [address] | [phone] | | HOSPITAL [facility] | | | [...] the attending | LABORATORY | | physician. Wlnj-lgw-qdbqhmk drugs may cross react with some methods. [...] + + | [facility] | [address] | [place] [address] | [phone] | | HOSPITAL [facility] | | | [...] + + | [facility] [facility] | [address] | [place] [address] | [phone] | | HOSPITAL [facility] | | | [...] + + | [facility] | [address] | [place] [address] | [phone] | | HOSPITAL LAB[facility]ATORY | | | [...] | mL/min/1.73m2 | [facility] | | | SCOTTISH | RATE,ESTIMATED | | HOSPITAL | | | | mL/min/1.77e5Swzk than | | LABORATORY | | | [...] + + | [facility] | [address] | [place] [address] | [phone] | | HOSPITAL LAB[facility]ORY | | | [...] 28.9 | 27.7 - 32.3 pg | [facility] | | | | | [...] | 0.04 | 0.00 - 0.20 | [facility] | | | Basophils | | K/uL [...] + + | [facility] | [address] | [place] [address] | [phone] | | HOSPITAL LAB[facility]ORY | | | [...]
--- OUTSIDE RECORDS SUMMARY | ~2019-02-17 | XMS | Encounter Summary ---
Demographics + + + | Address | [address] | | | [place] [address] | + + + | Home Phone [...] Providers + +------+ + | Care Chemical Technician Name | Role | Phone | [...] | +--------+ + + + + | 08/05/ | Telephone | [facility] | Horacio Silvestre, | Medication Question | | 2019 | | [facility] | [address] | | | | | [facility] [address] | [facility], [place] | | | | | [address] [place], | [address] | | | | | [place] [address] | [phone] | | | | | [phone] | | | +--------+ + + + [...] [place] | | | | | | [address] | | | | | | [phone] | | | | | | | | +--------+---------+ + + + | 02/26/ | Office | Urology | Lillie Fowler | | | 2018 | Visit | | [address] | | | | | | [address] | | | | | | [place], [place] | | | | | | [address] | | | | | | [phone] | | | | | | | | +--------+---------+ + + + | 03/16/ | Office | Neurology | Theresa, | | | 2018 | Visit | | [address] | | | | | | [address] [place], | | | | | | [place] [address] | | | | | | [phone] | | | | | | | | +--------+---------+ + + + | 04/12/ | Office | Primary Care | Massimo Ramos Pedro Luis | | | 2019 | Visit | | MD Fer [address] | | | | | | [place] | | | | | | [address] | | | | | | | | +--------+---------+ + + + | 10/03/ | Office | Neurology | Fabián Carias MD | | | 2019 | Visit | | [address] | | | | | | [place] | | | | | | [address] | | | | | | | [...] | | | care | | | Instructional Technology Specialist-C | | | | | | [...] | | | care | | | Instructional Technology Specialist-C | | | | | | [...] | | | care | | | Instructional Technology Specialist-C | | | | | | [...] | | | care | | | Instructional Technology Specialist-C | | | | | | [...]
--- OUTSIDE RECORDS SUMMARY | ~2019-02-17 | XMS | Encounter Summary ---
Demographics + + + | Address | [address] | | | [place] [address] | + + + | Home Phone [...] Team Providers + +------+ + | Care Demolition Crane Operator Name | Role | Phone | [...] | | | | | [address] [place], | [address] | | | | | [place] [address] | [phone] | | | | | [phone] | | | +--------+ + + + [...] [place] | | | | | | [address] | | | | | | [phone] | | | | | | | | +--------+---------+ + + + | 02/26/ | Office | Urology | Lillie Fowler | | | 2018 | Visit | | [address] | | | | | | [address] | | | | | | [place], [place] | | | | | | [address] | | | | | | [phone] | | | | | | | | +--------+---------+ + + + | 03/16/ | Office | Neurology | Theresa, | | | 2018 | Visit | | [address] | | | | | | [address] [place], | | | | | | [place] [address] | | | | | | [phone] | | | | | | | | +--------+---------+ + + + | 04/12/ | Office | Primary Care | Massimo Ramos Pedro Luis | | | 2019 | Visit | | MD Fer [address] | | | | | | [place] | | | | | | [address] | | | | | | | | +--------+---------+ + + + | 10/03/ | Office | Neurology | Fabián Carias MD | | | 2019 | Visit | | [address] | | | | | | [place] | | | | | | [address] | | | | | | | [...] | | | care | | | Transitions Rn Care Coordinator-C | | | | | | [...] | | | care | | | Transitions Rn Care Coordinator-C | | | | | | [...] | | | care | | | Transitions Rn Care Coordinator-C | | | | | | [...] | | | care | | | Transitions Rn Care Coordinator-C | | | | | | [...]
--- OUTSIDE RECORDS SUMMARY | ~2019-02-17 | XMS | Encounter Summary ---
Demographics + + + | Address | [address] | | | [place] [address] | + + + | Home Phone [...] Team Providers + +------+ + | Care Transport Operations Inspector Name | Role | Phone | + +------+ + | Horacio Silvestre DO | PCP | | + +------+ + Encounter Details +--------+ + + + + | Date | Type | Department | Care Team | Description | +--------+ + + + + | 07/05/ | [facility] | Brina Acosta, | | | 2018 | Encounter | [facility] | [address] [address] | | | | | [address] [place] | [place] [address] | | | | | [place], [place] | [phone] | | | | | [address] | | | | | | [phone] | | | +--------+ + + + [...] azithromycin | Take 2 tablets by | 6 | 0 | 07/06/19 | | | (ZITHROMAX) 250 mg | mouth on day 1, and | tablet | | 18 | 8 | | tabletIndications: | 1 tablet by mouth | | | | | | Upper respiratory | every day | | | | | | tract infection, | | | | | | | [...] tablet by | 56 | 0 | 06/28/19 | | | TABSIndications: | mouth Twice daily | tablet | | 18 | 8 | | Multilevel | as needed for Pain. 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, terminal makeup operator | | | | | | | current use of | | | | | | | opiate analgesic, | | | | | | | Bilateral carpal | | | | | | | tunnel syndrome | | | | | | + + + +---------+ + + | pregabalin | Take 1 capsule by | 60 | 0 | 06/28/19 | | | (LYRICA) 300 MG | [...] [place] | | | | | | [address] | | | | | | [phone] | | | | | | | | +--------+---------+ + + + | 02/26/ | Office | Urology | Lillie Fowler | | | 2018 | Visit | | [address] | | | | | | [address] | | | | | | [place] | | | | | | [address] | | | | | | [phone] | | | | | | | | +--------+---------+ + + + | 03/16/ | Office | Neurology | Theresa, | | | 2018 | Visit | | [address] | | | | | | [address] [place], | | | | | | [place] [address] | | | | | | [phone] | | | | | | | | +--------+---------+ + + + | 04/12/ | Office | Primary Care | Massimo Ramos | | | 2019 | Visit | | MD Fer [address] | | | | | | [place], [place] | | | | | | [address] | | | | | | | | +--------+---------+ + + + | 10/03/ | Office | Neurology | Fabián Carias MD | | | 2019 | Visit | | [address] | | | | | | [place] | | | | | | [address] | | | | | | | [...] | | | care | | | Private Branch Exchange Service Advisor-C | | | | | [...] | | | care | | | Private Branch Exchange Service Advisor-C | | | | | [...] | | | care | | | Private Branch Exchange Service Advisor-C | | | | | [...] | | | care | | | Private Branch Exchange Service Advisor-C | | | | | [...] XR CHEST PA AND | Routin | 07/05/2017 | Upper respiratory | Results for this | | LATERAL | e | 1:11 PM | tract infection, | procedure are in the | | | | PDT | unspecified type | results section. | + +--------+ + + + documented in this encounter Results XR Chest PA and Lateral (07/05/2017 1:11 PM PDT) + + | Specimen | + + | | + + + + + | Impressions | Performed At | + + + | IMPRESSION: No acute cardiopulmonary process. Dictated by: | [facility] | | Massimo Alba Electronically Signed by: Massimo Alba on | | | 07/05/2017 2:23 PM | | + + + + + + | Narrative | Performed At | + + + | EXAMINATION: XR CHEST PA AND LATERAL HISTORY: coughing for the | [facility] | | past few days with a low grade fever COMPARISON STUDY: January | | | 2016 FINDINGS: The lungs are mildly hypoventilated. No | | | focal lung parenchymal opacity. Diaphragmatic eventration is are | | | present. No pleural effusion. No pneumothorax. Heart size is | | | stable. No acute osseous process. | | + + + + + | Procedure Note | + + | Osito, Rad Results In - 07/05/2017 2:26 PM PDT EXAMINATION:XR CHEST PA AND | | LATERALHISTORY:coughing for the past few days with a low grade feverCOMPARISON | | STUDY:January 15, 2017FINDINGS:The lungs are mildly hypoventilated. No focal lung | | parenchymal opacity. Diaphragmatic eventration is are present. No pleural effusion. | | No pneumothorax. Heart size is stable. No acute osseous process.IMPRESSION: | | IMPRESSION:No acute cardiopulmonary process.Dictated by: Massimo Acevesectronically | | Signed by: Massimo Alba on 07/05/2017 2:23 PM | |January 15, 2017 | | | |FINDINGS: | |The lungs are mildly hypoventilated. No focal lung parenchymal opacity. Diaphragmatic gris ntration is are present. No pleural effusion. No pneumothorax. Heart size is stable. No acute osseous process. | | | |IMPRESSION: | |IMPRESSION: | |No acute cardiopulmonary process. | | | |Dictated by: Massimo Alba [...]
--- OUTSIDE RECORDS SUMMARY | ~2019-02-17 | XMS | Encounter Summary ---
Demographics + + + | Address | [address] | | | [place] [address] | + + + | Home Phone [...] Team Providers + +------+ + | Care Seat Joiner Name | Role | Phone | + +------+ + PCP | Unavailable | + +------+ + Encounter Details +--------+ + + + + | Date | Type | Department | Care Team | Description | +--------+ + + + + | 03/10/ | Hospital | [facility] | Frederick Joseph | | | 2010 | Encounter | [facility] | MD Artie Downs | | | | | CENTER [address] | [place], | | | | | [place], [place] | [place] [address] | | | | | [address] | [phone] | | | | | [phone] | | | +--------+ + + + [...] documented as of this encounter Progress Notes Harjeet Hutson MD - 03/10/2010 12:12 PM PSTDictating Practitioner: Hossein Funes MD Ordering Practitioner: Frederick Joseph MD Cc: Ryan Gutiérrez MD 48-HOUR HOLTER MONITOR REPORT DATE OF SERVICE: 03/10/2010 INDICATION: Syncope. There is a small dairy present, there are symptoms reported, but are not related to cardiac involvement. She mentions leg pain and stomach hurting, the only symptoms that are reporte d. This was a 48-hour Holter monitor that recorded 46 in total. HOOKUP DATE: 03/10/2010 at 5:04 The patient had an average of 70 beats per minute with minimal heart rate of 53 and a maxim um of 124. The heart rate was greater than 120 beats per minute in less than 1% of the time. No pauses exceeding 5 seconds were noticed. There was one ventricular ectopy noticed accounting for less than 1% of the total beat count and no supraventricular ectopies were observed. There were no episodes of ST depression noticed in channel 1, 2 or 3. INTERPRETATION: This is a 48-hour Holter monitor that is only significant for one ventricular ectopy that w as not related with any symptomatology and mild sinus bradycardia that was also asymptomatic , at least not related to any documentation on the diary, the same with a single episode of tachycardia with 124 not related with any symptoms, so basically I woul d call it a normal Holter monitor. [facility] Signed and Approved by: HARJEET FUNES MD 03/26/2010 08:20:00 documented in this encounter Plan of Treatment [...] [place] | | | | | | [address] | | | | | | [phone] | | | | | | | | +--------+---------+ + + + | 02/26/ | Office | Urology | Lillie Fowler | | | 2018 | Visit | | [address] | | | | | | [address] | | | | | | [place], [place] | | | | | | [address] | | | | | | [phone] | | | | | | | | +--------+---------+ + + + | 03/16/ | Office | Neurology | Theresa, | | | 2018 | Visit | | [address] | | | | | | [address] [place], | | | | | | [place] [address] | | | | | | [phone] | | | | | | | [...] [place] | | | | | | [address] | | | | | | | [...] | | | care | | | Upsetting 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-C | | | | | [...] | | | care | | | Upsetting 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-C | | | | | [...] | | | care | | | Upsetting 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-C | | | | | [...] | | | care | | | Upsetting 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-C | | | | | | | linical | + +--------+ +---+-----+ + + + | Note: Pt will | | check CBG's daily x1 | | Pt will take Lantis as | | prescribed | + + documented as of this encounter Visit Diagnoses Not on filedocumented in this encounter"
--- OUTSIDE RECORDS SUMMARY | ~2019-02-17 | XMS | Encounter Summary ---
Demographics + + + | Address | [address] | | | [place] [address] | + + + | Home Phone | | + + + | Preferred Language | Unknown | + + + | Marital Status | | + + + | Confucianism Affiliation | 1025 | + + + | Race | Unknown | + + + | Ethnic Group | Unknown | + + + Author + + + | Author | [facility] | | | and [place] | + + + | Organization | [facility] | | | and [place] | + + + | Address | Unknown | + + + | Phone | Unavailable | + + + Support + + +---------+ + | Name | Relationship | Address | Phone | + + +---------+ + | Ella Mcafdden | ECON | Unknown | | + + +---------+ + | Juan Mcfadden | ECON | Unknown | | + + +---------+ + Care Team Providers + +------+ + | Care Big Data Analytics Lead Name | Role | Phone | [...] + + + + | 02/23/ | Telephone | [facility] | Fabián Carias MD | Pain Management | | 2018 | | HOSPITAL NEUROLOGY | [address] | | | | | CLINIC [address] | [place] | | | | | [address] [place], | [address] | | | | | [place] [address] | | | | | | [phone] | | | +--------+ + + + [...] [place] | | | | | | [address] | | | | | | [phone] | | | | | | | | +--------+---------+ + + + | 02/26/ | Office | Urology | Lillie Fowler | | | 2018 | Visit | | [address] | | | | | | [address] | | | | | | [place], [place] | | | | | | [address] | | | | | | [phone] | | | | | | | | +--------+---------+ + + + | 03/16/ | Office | Neurology | Theresa, | | | 2018 | Visit | | [address] | | | | | | [address] [place], | | | | | | [place] [address] | | | | | | [phone] | | | | | | | | +--------+---------+ + + + | 04/12/ | Office | Primary Care | Massimo Ramos | | | 2019 | Visit | | MD Fer [address] | | | | | | [place] | | | | | | [address] | | | | | | | | +--------+---------+ + + + | 10/03/ | Office | Neurology | Fabián Carias MD | | | 2019 | Visit | | [address] | | | | | | [place] | | | | | | [address] | | | | | | | [...] | | | care | | | Forepart Rasper-C | | | | | | | [...] | | | care | | | Forepart Rasper-C | | | | | | | [...] | | | care | | | Forepart Rasper-C | | | | | | | [...] | | | care | | | Forepart Rasper-C | | | | | | | linical | + +--------+ +---+-----+ + + + | Note: Pt will | | check CBG's daily x1 | | Pt will take Lantis as | | prescribed | + + documented as of this encounter Visit Diagnoses Not on filedocumented in this encounter"
--- OUTSIDE RECORDS SUMMARY | ~2019-02-17 | XMS | Encounter Summary ---
Demographics + + + | Address | [address] | | | [place] [address] | + + + | Home Phone [...] Providers + +------+ + | Care Director Cost Name | Role | Phone | + +------+ + | Horacio Silvestre DO | PCP | | + +------+ + Reason for Visit + + + | Reason | Comments | + + + | Abdominal Pain | lower left | + + + Evaluate & Treat [...] | | | | tient visit | [address] | [address] | | | | | est | [place] | [place] | | | | | [address], | [address] | [address] | | | | | Authorized | [address] | Phone: | | | | | For any | [place], [place] | [phone] | | | | | clinically | [address] | Fax: | | | | | necessary | Phone: | [phone] | | | | | Visits for | [phone] | | | | | | 365 days | Fax: | | | | | | AUTH NO: | [phone] | | | | | | [phone] | | | +--------+--------+ + + + + Encounter Details +--------+---------+ + + + | Date | Type | Department | Care Team | Description | +--------+---------+ + + + | 04/28/ | Office | [facility] | Faraz Tejada, | Abdominal pain, | | 2019 | Visit | [facility] | DNP [address] | chronic, left lower | | | | MEDICAL CL[facility] [address] | [place] [address] | quadrant (Primary | | | | [address] [place], | [phone] | Dx); History of | | | | [place] [address] | | ventral hernia | | | | [phone] | | repair | +--------+---------+ + + + Social History [...] + + + | Blood Pressure | 159/90 | 04/28/2018 3:31 PM | | | | | PST | | + + + + + | Pulse | 59 | 04/28/2018 3:31 PM | | | | | PST | | + + + + + | Temperature | - | - | | + + + + + | Respiratory Rate | 15 | 04/28/2018 3:31 PM | | | | | PST | | + + + + + | Oxygen Saturation | 98% | 04/28/2018 3:31 PM | | | | | PST | | + + + + + | Inhaled Oxygen | - | - | | | Concentration | | | | + + + + + | Weight | 97.5 kg (215 lb) | 04/28/2018 3:31 PM | | | | | PST | | + + + + + | Height | 167.6 cm (5' 5.98") | 04/28/2018 3:31 PM | | | | | PST | | + + + + + | Body Mass Index | 34.72 | 04/28/2018 3:31 PM | | | | | PST [...] as of this encounter Progress Notes Faraz Teajda, DNP - 04/28/2018 3:30 PM PSTFormatting of this note might be different fro m the original. Patient ID: Geraldo Mcfadden is a 77 y.o. year old male Chief Complaint: Chief Complaint Patient presents with Abdominal Pain lower left Assessment and Plan: 1. Abdominal pain, chronic, left lower quadrant 2. History of ventral hernia repair - Pain potentially caused by scar tissue. - Bowel movements are reportedly normal. - Continue Oxycodone as prescribed for other pains. - Patient states that his pain is not severe enough for him to currently consider surgical intervention, therefore no General Surgery consultation will be ordered at this time. - If symptoms worsen imaging or general surgery referral would both be appropriate interven tions. Follow up in the clinic as needed if symptoms persist or worsen. Subjective: Ed is a 77-year-old who presents to the clinic with complaints of worsening abdo pato pain after having a laparoscopic hernia repair performed by Dr. De Oliveira. This pain york s been somewhat chronic and is currently rated 4/10 in severity. Ramakrishna denies changes in jacque wel or bladder function. The pain is achy with an occasional pinching sensation. It primar julio bothers him when he bends down or gets into certain positions. Abdominal Pain This is a chronic problem. The current episode started more than 1 month ago. The onset tucker lity is gradual. The problem occurs constantly. The pain is located in the LLQ. The pain is at a severity of 4/10. The pain is mild. Quality: pinching. Associated symptoms include art hralgias and myalgias. Pertinent negatives include no anorexia, constipation, diarrhea, dysu pratik, fever, flatus, frequency, headaches, hematuria, nausea or vomiting. The pain is aggrava rosemarie by certain positions (Bending over leads to a pinching sensation. ). Relieved by: Oxycod one, taken for his back pain, helps with the abdominal pain. The treatment provided modera te relief. His past medical history is significant for abdominal surgery. Allergies: Allergies Allergen Reactions Zolpidem Anaphylaxis Social History: Social History Social History Marital status: Spouse name: N/A Number of children: N/A Years of education: N/A Occupational History Not on file. Social History Main Topics Smoking status: Former Smoker Packs/day: 3.00 Quit date: 1975 Smokeless tobacco: Never Used Alcohol use No [...] visit. Review of Systems Constitutional: Negative for chills, diaphoresis, fatigue and fever. Respiratory: Negative for cough, shortness of breath and wheezing. Cardiovascular: Negative for chest pain and palpitations. Gastrointestinal: Positive for abdominal pain. Negative for anorexia, constipation, diarrhe a, flatus, nausea and vomiting. Genitourinary: Negative for dysuria, frequency and hematuria. Musculoskeletal: Positive for arthralgias, back pain, gait problem and myalgias. Skin: Negative for color change, pallor, rash and wound. Neurological: Negative for headaches. Objective: Vitals: BP 159/90 | Pulse 59 | Resp 15 | Ht 1.676 m (5' 5.98") | Wt 97.5 kg (215 lb) | SpO2 98 % | BMI 34.72 kg/m Physical Exam Constitutional: He is oriented to person, place, and time. He appears well-developed and we ll-nourished. No distress. Cardiovascular: Normal rate, regular rhythm and normal heart sounds. No murmur heard. Pulmonary/Chest: Effort normal and breath sounds normal. No respiratory distress. He has no wheezes. He has no rales. Abdominal: Normal appearance. There is tenderness in the left lower quadrant. There is rigi dity (Chronic rigidity according to patient (after mesh was put in).). Musculoskeletal: Normal range of motion. Neurological: He [...] [place] | | | | | | [address] | | | | | | [phone] | | | | | | | | +--------+---------+ + + + | 02/26/ | Office | Urology | Lillie Fowler | | | 2018 | Visit | | [address]IE [address] | | | | | | [address] | | | | | | [place] | | | | | | [address] | | | | | | [phone] | | | | | | | | +--------+---------+ + + + | 03/16/ | Office | Neurology | Theresa, | | | 2018 | Visit | | [address] | | | | | [address] [place], | | | | | | [place] [address] | | | | | | [phone] | | | | | | | | +--------+---------+ + + + | 04/12/ | Office | Primary Care | Massimo Ramos | | | 2019 | Visit | | MD Fer [address] | | | | | | [place] | | | | | | [address] | | | | | | | | +--------+---------+ + + + | 10/03/ | Office | Neurology | Fabián Carias MD | | | 2019 | Visit | | [address] | | | | | | [place] | | | | | | [address] | | | | | | | [...] | | | care | | | Ply Cutter-C | | | | | | | [...] | | | care | | | Ply Cutter-C | | | | | | | [...] | | | care | | | Ply Cutter-C | | | | | | | [...] | | | care | | | Ply Cutter-C | | | | | | | linical | + +--------+ +---+-----+ + + + | Note: Pt will | | check CBG's daily x1 | | Pt will take Lantis as | | prescribed | + + documented as of this encounter Visit Diagnoses + + | Diagnosis | + + | Abdominal pain, chronic, left lower quadrant - Primary Abdominal pain, left lower | | quadrant | + + | History of ventral hernia repair Personal history of surgery to other organs | + + documented in this encounter
--- OUTSIDE RECORDS SUMMARY | ~2019-02-17 | XMS | Encounter Summary ---
Demographics + + + | Address | [address] | | | [place] [address] | + + + | Home Phone | | + + + | Preferred Language | Unknown | + + + | Marital Status | | + + + | Orthodox Affiliation | 1025 | + + + | Race | Unknown | + + + | Ethnic Group | Unknown | + + + Author + + + | Author | [facility] | | | and [place] | + + + | Organization | [facility] [...] Team Providers + +------+ + | Care Engineering Mathematician Name | Role | Phone | + +------+ + PCP | Unavailable | + +------+ + Encounter Details +--------+ + + + + | Date | Type | Department | Care Team | Description | +--------+ + + + + | 04/13/ | Hospital | [facility] | Ryan Gutiérrez | | | 2009 | Encounter | H[facility] XRAY [address] | [address] | | | | | [place] | [address] | | | | | [place], [place] | [place] [address] | | | | | [address] | [phone] | | | | | [phone] | | | +--------+ + + + [...] [place] | | | | | | [address] | | | | | | [phone] | | | | | | | | +--------+---------+ + + + | 02/26/ | Office | Urology | Lillie Fowler | | | 2018 | Visit | | LILLIE Lopez [address] | | | | | | [address] | | | | | | [place], [place] | | | | | | [address] | | | | | | [phone] | | | | | | | | +--------+---------+ + + + | 03/16/ | Office | Neurology | Theresa, | | | 2018 | Visit | | SHONDA Mckinney [address] | | | | | [address] [place], | | | | | | [place] [address] | | | | | | [phone] | | | | | | | | +--------+---------+ + + + | 04/12/ | Office | Primary Care | Massimo Ramos | | | 2019 | Visit | | MD Fer [address] | | | | | | [address] [place] | | | | | | [address] | | | | | | | | +--------+---------+ + + + | 10/03/ | Office | Neurology | Fabián Carias MD | | | 2019 | Visit | | [address] | | | | | | [place] | | | | | | [address] | | | | | | | [...] | | | care | | | Slitter Scorer Cut Off Operator-C | | | | | | [...] | | | care | | | Slitter Scorer Cut Off Operator-C | | | | | | [...] | | | care | | | Slitter Scorer Cut Off Operator-C | | | | | | [...] | | | care | | | Slitter Scorer Cut Off Operator-C | | | | | | | linical | + +--------+ +---+-----+ + + + | Note: Pt will | | check CBG's daily x1 | | Pt will take Lantis as | | prescribed | + + documented as of this encounter Visit Diagnoses Not on filedocumented in this encounter"
--- OUTSIDE RECORDS SUMMARY | ~2019-02-17 | XMS | Encounter Summary ---
Demographics + + + | Address | [address] | | | [place] [address] | + + + | Home Phone [...] Team Providers + +------+ + | Care Sixth Grade Teacher Name | Role | Phone | + +------+ + | Horacio Silvestre DO | PCP | | + +------+ + Reason for Visit +--------+ + | Reason | Comments | +--------+ + | Cough | | +--------+ + Encounter Details +--------+---------+ + + + | Date | Type | Department | Care Team | Description | +--------+---------+ + + + | 07/05/ | Office | [facility] | Brina Acosta, | Upper respiratory | | 2018 | Visit | [facility] | DESKTOP PUBLISHING SPECIALIST [address] [place] | tract infection, | | | | [facility] [address] | [place] [address] | unspecified type | | | | [address] [place], | [phone] | (Primary Dx) | | | | [place] [address] | | | | | | [phone] | | | +--------+---------+ + + + [...] + + + | Blood Pressure | 112/60 | 07/05/2017 11:38 AM | | | | | PDT | | + + + + + | Pulse | 77 | 07/05/2017 11:38 AM | | | | | PDT | | + + + + + | Temperature | 37.6 C (99.7 F) | 07/05/2017 11:38 AM | | | | | PDT | | + + + + + | Respiratory Rate | 16 | 07/05/2017 11:38 AM | | | | | PDT | | + + + + + | Oxygen Saturation | 93% | 07/05/2017 11:38 AM | | | | | PDT [...] in this encounter Patient Instructions Patient Instructions Brina Acosta FNP - 07/05/2017 12:02 PM PDTFormatting of this note m ight be different from the original. What Is Acute Bronchitis? Acute bronchitis is when the airways in your lungs (bronchial tubes) become red and swollen (inflamed). It is usually caused by a viral infection. But it can also occur because of a b acteria or allergen. Symptoms include a cough that produces yellow or greenish mucus and can last for days or sometimes weeks. Inside healthy lungs Air travels in and out of the lungs through the airways. The linings of these airways produ ce sticky mucus. This mucus traps particles that enter the lungs. Tiny structures called cil ia then sweep the particles out of the airways. Healthy airway: Airways are normally open. Air moves in and out easily. Healthy cilia: Tiny, hairlike cilia sweep mucus and particles up and out of the airways. Lungs with bronchitis Bronchitis often occurs with a cold or the flu virus. The airways become inflamed (red and swollen).There fredi deep hacking cough from the extra mucus. Other symptoms may include: Wheezing Chest discomfort Shortness of breath Mild fever A second infection, this time due to bacteria, may then occur. And airways irritated by all ergens or smoke are more likely to get infected. Inflamed airway: Inflammation and extra mucus narrow the airway, causing shortness of breat h. Impaired cilia: Extra mucus impairs cilia, causing congestion and wheezing. Smoking makes t he problem worse. Making a diagnosis A physical exam, health history, and certain tests help your healthcare provider make the d iagnosis. Healthhistory Your healthcare providerwillask youabout your symptoms. The exam Your provider listens toyour chest for signs of congestion. He or she may also checkyou r ears, nose, and throat. Possible tests A sputum testfor bacteria. This requires a sample of mucus from your lungs. A nasal or throat swab. This tests to see if you have a bacterial infection. A chest X-ray. This is doneif your healthcare provider thinks you have pneumonia. Tests to check for an underlying condition. Other tests may be done to check for things such as allergies, asthma, or COPD (chronic obstructive pulmonary disease). You may need to see a specialist for more lung function testing. Treating a cough The main treatment for bronchitis is easing symptoms. Avoiding smoke, allergens, and other things that trigger coughing can often help. If the infection is bacterial, you may be given antibiotics. During the illness, it's important to get plenty of sleep. To ease symptoms: Don t smoke. Also avoid secondhand smoke. Use a humidifier. Or try breathing in steam from a hot shower. This may help loosen mucu s. Drink a lot of water and juice. They can soothe the throat and may help thin mucus. Sit up or use extra pillows when in bed. This helps to lessen coughing and congestion. Ask your providerabout usingmedicine. Ask about using cough medicine, pain and fever medicine, or a decongestant. Antibiotics Most cases of bronchitis are caused by cold or flu viruses. They don t need antibiotics t o treat them, even if your mucus is thick and green or yellow. Antibiotics don t treat vir al illness and antibiotics have not been shown to have any benefit in cases of acute bronchi tis. Taking antibiotics when they are not needed increases your risk of getting an infection later that is antibiotic-resistant. Antibiotics can also cause severe cases of diarrhea stephanie t require other antibiotics to treat. It is important that you accept your healthcare prov ider's opinion to not use antibiotics.Your provider will prescribe antibiotics if the infe ction is caused by bacteria. If they are prescribed: Take all of the medicine. Take the medicine until it is used up, even if symptoms have i mproved. If you don t, the bronchitis may come back. Take the medicines as directed. For instance, some medicines should be taken with food. Ask about side effects. Ask your provider or pharmacist what side effects are common, an d what to do about them. Follow-up care You shouldsee your provider again in 2 to 3 weeks. By this time, symptoms should have imp roved. An infection that lasts longer may mean you havea more serious problem. Prevention Avoid tobacco smoke. If you smoke, quit. Stay away from smoky places. Ask friends and fa gregory not to smoke around you, or in your home or car. Get checked forallergies. Ask your provider about getting a yearly flu shot. Also ask about pneumococcal or pneumo bebe shots. Wash your hands often. This helps reduce the chance of picking up viruses that cause col ds and flu. Call your healthcare provider if: Symptoms worsen, or you have new symptoms Breathing problems worsenor become severe Symptoms don t get better within a week, or within 3days of taking antibiotics Date Last Reviewed: 05/08/201619990374-2251 [employer]. [address] [place] [address]. All righ ts reserved. This information is not intended as a substitute for professional medical care. Always follow your healthcare professional's instructions. documented in this encounter Progress Notes Brina Acosta FNP - 07/05/2017 11:15 AM PDTFormatting of this note might be different ady wright the original. Subjective: Patient ID: Geraldo Mcfadden is a 77 y.o. male. HPI He is a diabetic (type 2) with 3 to 4 days of nasal congestion, and coughing (productive at times), and a few fever the past few days and feeling chilled. No sob. No asthma. He does have a "long"smoking history but hasn't smoked in many years. He has been trying nasal saline rinses for the symptoms. He noted that he has pneumonia a few months ago and he is worried that this may be coming b ack. Patient's medications, allergies, past medical, surgical, social and family histories were obtained and reviewed as appropriate. Review of Systems Constitutional: Positive for fever. 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 Unknown Type 2 diabetes mellitus with diabetic polyneuropathy, 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 03/07/2017 Unknown Class 1 obesity due to excess calories with serious comorbidity and body mass index (BM I) of 34.0 to 34.9 in adult 03/07/2017 Unknown Benign prostatic hyperplasia without lower urinary tract symptoms 03/07/2017 Unknown Acquired diverticulosis of colon 03/07/2017 Unknown Chronic nonseasonal allergic rhinitis due to pollen 03/07/2017 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 (Patie nt not taking: Reported on 07/05/2017) 28 tablet 0 hydroCHLOROthiazide 25 mg tablet Take 25 [...] by mouth nightly. No current facility-administered medications on file prior to visit. Objective: Vitals: 07/05/17 1138 BP: 112/60 Pulse: 77 Resp: 16 Temp: 37.6 C (99.7 F) PainSc: 4 PainLoc: Back Physical Exam Constitutional: He is oriented to person, place, and time. He appears well-developed. No di stress. HENT: Head: Normocephalic. Right Ear: Tympanic membrane, external ear and ear canal normal. Tympanic membrane is not e rythematous and not bulging. Tympanic membrane mobility is normal. Left Ear: Tympanic membrane, external ear and ear canal normal. Tympanic membrane is not er ythematous and not bulging. Tympanic membrane mobility is normal. Nose: Mucosal edema, rhinorrhea and sinus tenderness present. No nose lacerations, nasal de formity, septal deviation or nasal septal hematoma. No epistaxis. No foreign bodies. Right sinus exhibits no maxillary sinus tenderness and no frontal sinus tenderness. Left sinus exh ibits no maxillary sinus tenderness and no frontal sinus tenderness. Mouth/Throat: Uvula is midline, oropharynx is clear and moist and mucous membranes are norm al. He does not have dentures. No oral lesions. No trismus in the jaw. Normal dentition. No dental abscesses, uvula swelling, lacerations or dental caries. No oropharyngeal exudate, po sterior oropharyngeal edema, posterior oropharyngeal erythema or tonsillar abscesses. Eyes: Conjunctivae are normal. Right eye exhibits no discharge. Left eye exhibits no discha rge. Neck: No JVD present. No tracheal deviation present. No thyromegaly present. Cardiovascular: Normal rate, regular rhythm, normal heart sounds and intact distal pulses. Exam reveals no gallop and no friction rub. No murmur heard. Pulmonary/Chest: Effort normal. No stridor. No tachypnea. No respiratory distress. He has w heezes in the right upper field, the right middle field, the right lower field, the left upp er field, the left middle field and the left lower field. He has rhonchi in the right lower field. He has no rales. He exhibits no tenderness. Dry cough in the exam room Musculoskeletal: Normal range of motion. Lymphadenopathy: He has no cervical adenopathy. Neurological: He is alert and oriented to person, place, and time. Skin: Skin is warm and dry. He is not diaphoretic. Psychiatric: He has a normal mood and affect. His behavior is normal. No results found for this or any previous visit (from the past 24 hour(s)). XR CHEST PA AND LATERAL Assessment: 1. Upper respiratory tract infection, unspecified type - XR Chest PA and Lateral - albuterol 90 mcg/puff inhaler; Inhale 2 puffs into the lungs every 4 hours as needed for Wheezing. Or coughing Dispense: 1 Inhaler; Refill: 1 - azithromycin (ZITHROMAX) 250 mg tablet; Take 2 tablets by mouth on day 1, and 1 tablet by mouth every day Dispense: 6 tablet; Refill: 0 Plan: Fluids and honey Steam Gargle with Salt water Nasal Saline rinses OTC 650mg Tylenol or 400mg Ibuprofen every 4 to 6 hours as needed for pain or fevers. May use OTC decongestants as needed. Addendum: I let him know that no acute pneumonia was seen on his x-ray. Continue with the bobby hoyos plan of care. He agrees to this. His prescriptions were faxed to [facility] per h is request. Return in about 5 days (around 07/10/2017) for If no improvemnet or sooner if acutely worseni ng.. COLLINS Mcrae07/05/201713:59 [facility] Leonardo Narvaez LPN - 07/05/2017 11:15 AM Srikanthlakshmi Mcfadden presents to [facility] today with Chief Complaint of: Cough, sinus congestion, fevers x 2-3 days. Current medications verified with him at time of visit. Pt currently shows no s/s of distress, shortness of breath. Vital signs: BP 112/60 | Pulse 77 | Temp 37.6 C (99.7 F) (Oral) | Resp 16 | SpO2 93 % Labs Obtained per [facility] protocol: None. Verbal Report given to: SHONDA Friedman. Leonardo Quiros LPN documented in this en counter Plan of [...] [place] | | | | | | [address] | | | | | | [phone] | | | | | | | | +--------+---------+ + + + | 02/26/ | Office | Urology | Lillie Fowler | | | 2018 | Visit | | LILLIE Lopez [address] | | | | | | [address] | | | | | | [place], [place] | | | | | | [address] | | | | | | [phone] | | | | | | | | +--------+---------+ + + + | 03/16/ | Office | Neurology | Theresa, | | | 2018 | Visit | | SHONDA Mck[address]ney [address] | | | | [address] [place], | | | | | | [place] [address] | | | | | | [phone] | | | | | | | | +--------+---------+ + + + | 04/12/ | Office | Primary Care | Massimo Ramos | | | 2019 | Visit | | MD Fer [address] | | | | | | [address] [place] | | | | | | [address] | | | | | | | | +--------+---------+ + + + | 10/03/ | Office | Neurology | Fabián Carias MD | | | 2019 | Visit | | [address] | | | | | | [place] | | | | | | [address] | | | | | | | [...] | | care | | | Model Builder Display-C | | | | | | | [...] | | care | | | Model Builder Display-C | | | | | | | [...] | n of | | | [place], | | | | complex | | | Case | | | | care | | | Model Builder Display-C | | | | | | | [...] | n of | | | [place], | | | | complex | | | Case | | | | care | | | Model Builder Display-C | | | | | | | [...] + | Diagnosis | + + | Upper respiratory tract infection, unspecified type - Primary | + + documented in this encounter
--- OUTSIDE RECORDS SUMMARY | ~2019-02-17 | XMS | Encounter Summary ---
Demographics + + + | Address | [address] | | | [place] [address] | + + + | Home Phone [...] Team Providers + +------+ + | Care Carton Folder Name | Role | Phone | + +------+ + | Horacio Silvestre DO | PCP | | + +------+ + Reason for Visit Diagnostic/Screening (Emergency) +--------+--------+ + + + + | Status | Reason | Specialty | Diagnoses / | Referred By | Referred To | | | | | Procedures | Contact | Contact | +--------+--------+ + + + + | Closed | | Radiology | Diagnoses | Guiantonio, | Cc Wgr Xray | | | | | Mediastinal | Horacio Tim, DO | [address] | | | | | | [address] | [address] [place] | | | | | lymphadenopa | [place], | [place], [place] | | | | | thy | [place] | [address] | | | | | Procedures | [address] | Phone: | | | | | PET CT Skull | Phone: | [phone] | | | | | Base To Mid | [phone] | Fax: | | | | | Thigh PET | Fax: | [phone] | | | | | CT Limited | [phone] | | +--------+--------+ + + + + Encounter Details +--------+ + + + + | Date | Type | Department | Care Team | Description | +--------+ + + + + | 11/16/ | Hospital | [facility] | Horacio Silvestre, | | | 2019 | Encounter | [facility] PET SCAN | DO [address] | | | | | [address] [place] | [place], [place] | | | | | [place], [place] | [address] | | | | | [address] | [phone] | | | | | [phone] | | | +--------+ + + + [...] [place] | | | | | | [address] | | | | | | [phone] | | | | | | | | +--------+---------+ + + + | 02/26/ | Office | Urology | Lillie Fowler | | | 2018 | Visit | | LILLIE Lopez [address] | | | | | [address] | | | | | | [place], [place] | | | | | | [address] | | | | | | [phone] | | | | | | | | +--------+---------+ + + + | 03/16/ | Office | Neurology | Theresa, | | | 2018 | Visit | | SHONDA M[address] | | | | | [address] [place], | | | | | | [place] [address] | | | | | | [phone] | | | | | | | [...] [place] | | | | | | [address] | | | | | | | [...] | | | care | | | Brokerage Office Manager-C | | | | | | [...] | | | care | | | Brokerage Office Manager-C | | | | | | [...] | | | care | | | Brokerage Office Manager-C | | | | | | [...] | | | care | | | Brokerage Office Manager-C | | | | | | [...]
--- OUTSIDE RECORDS SUMMARY | ~2019-02-17 | XMS | Encounter Summary ---
Demographics + + + | Address | [address] | | | [place] [address] | + + + | Home Phone [...] Team Providers + +------+ + | Care Independent Crop Consultant Name | Role | Phone | [...] Medication Refill | | 2019 | | [facility] | DO [address] [facility] | (Pt requesting a | | | | [facility] | [facility], [place] | call back DIEUDONNE) | | | | [address] [facility], | [address] | | | | | [place] [address] | [phone] | | | | | [phone] | | | +--------+ + + + [...] [place] | | | | | | [address] | | | | | | [phone] | | | | | | | | +--------+---------+ + + + | 02/26/ | Office | Urology | Lillie Fowler | | | 2018 | Visit | | LILLIE Lopez [address] | | | | | | [address] | | | | | | [place] | | | | | | [address] | | | | | | [phone] | | | | | | | | +--------+---------+ + + + | 03/16/ | Office | Neurology | Theresa, | | | 2018 | Visit | | SHONDA Mck[address]ney [address] | | | [address] [place], | | | | | | [place] [address] | | | | | | [phone] | | | | | | | | +--------+---------+ + + + | 04/12/ | Office | Primary Care | Massimo Ramos | | | 2019 | Visit | | MD Fer [address] | | | | | | [place] | | | | | | [address] | | | | | | | | +--------+---------+ + + + | 10/03/ | Office | Neurology | Fabián Carias MD | | | 2019 | Visit | | [address] | | | | | | [place] | | | | | | [address] | | | | | | | [...] | | | care | | | E Learning Manager-C | | | | | | [...] | | | care | | | E Learning Manager-C | | | | | | [...] | | | care | | | E Learning Manager-C | | | | | | [...] | | | care | | | E Learning Manager-C | | | | | | | linical | + +--------+ +---+-----+ + + + | Note: Pt will | | check CBG's daily x1 | | Pt will take Lantis as | | prescribed | + + documented as of this encounter Visit Diagnoses Not on filedocumented in this encounter"
--- OUTSIDE RECORDS SUMMARY | ~2019-02-17 | XMS | Encounter Summary ---
Demographics + + + | Address | [address] | | | [place] [address] | + + + | Home Phone [...] Team Providers + +------+ + | Care Top Bottom Attaching 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 Name | Role | Phone | + +------+ + | Horacio Silvestre DO | PCP | | + +------+ + Reason for Visit + + + | Reason | Comments | + + + | Leg Swelling | | + + + | Other | ears plugges | + + + Evaluate & Treat (Routine) +--------+--------+ + + + + | Status | Reason | Specialty | Diagnoses / | Referred By | Referred To | | | | | Procedures | Contact | Contact | +--------+--------+ + + + + | Closed | | Primary Care | Diagnoses | [place] | [facility] | | | | | | [place] [facility] | [facility] | | | | | Office/outpa | MEDICAL | Primary Care | | | | | tient visit | [address] | [address] [facility] | | | | | est | [address] | [place] | | | | | [address], | [address] | [address] | | | | | Authorized | [address] [place] | Phone: | | | | | For any | [place], [place] | [phone] | | | | | clinically | [address] | Fax: | | | | | necessary | Phone: | [phone] | | | | | Visits for | [phone] | | | | | | 365 days | Fax: | | | | | | AUTH NO: | [phone] | | | | | | [phone] | | | +--------+--------+ + + + + Encounter Details +--------+---------+ + + + | Date | Type | Department | Care Team | Description | +--------+---------+ + + + | 09/24/ | Office | [facility] | Faraz Tejada, | Chronic diastolic | | 2019 | Visit | [facility] | DNP [address] | heart failure (HCC) | | | | [facility] [address] | [place] [address] | (Primary Dx); Cough; | | | | [address] [place], | [phone] | Bilateral lower | | | | [place] [address] | | extremity edema; | | | | [phone] | | Bilateral hearing | | | | | | loss due to cerumen | | | | | | impaction | +--------+---------+ + + + Social History [...] + | Blood Pressure | 116/62 | 09/24/2018 8:41 AM | | | | | PDT | | + + + + + | Pulse | 71 | 09/24/2018 8:41 AM | | | | | PDT | | + + + + + | Temperature | - | - | | + + + + + | Respiratory Rate | 16 | 09/24/2018 8:41 AM | | | | | PDT | | + + + + + | Oxygen Saturation | 92% | 09/24/2018 8:41 AM | | | | | PDT | | + + + + + | Inhaled Oxygen | - | - | | | Concentration | | | | + + + + + | Weight | 96.6 kg (213 lb) | 09/24/2018 8:41 AM | | | | | PDT | | + + + + + | Height | 167.6 cm (5' 6") | 09/24/2018 8:41 AM | | | | | PDT | | + + + + + | Body Mass Index | 34.38 | 09/24/2018 8:41 AM | | | | | [...] + documented as of this encounter Progress Faraz Allen, NENO - 09/24/2018 11:00 AM PDTFormatting of this note might be different fro m the original. Patient ID: Geraldo Mcfadden is a 78 y.o. year old male Chief Complaint Patient presents with Leg Swelling Other ears plugges Assessment and Plan: 1. Chronic diastolic heart failure (HCC) - B Type Natriuretic Peptide; Future - Increased lower extremity edema and wet sounding cough are likely secondary to fluid over load from heart failure exacerbation. Will attempt to treat with appropriate diuretic thera py. 2. Cough - XR Chest PA and Lateral; Future - evaluate for fluid overload and rule out pneumonia. - B Type Natriuretic Peptide; Future - furosemide (LASIX) 20 mg tablet; Take 1 tablet by mouth Daily. Dispense: 30 tablet; Refi ll: 0 - Basic Metabolic Panel; Future - CBC with Differential; Future 3. Bilateral lower extremity edema - B Type Natriuretic Peptide; Future - furosemide (LASIX) 20 mg tablet; Take 1 tablet by mouth Daily. Dispense: 30 tablet; Refi ll: 0 4. Bilateral hearing loss due to cerumen impaction - Resolved after irrigation with minimal assistance with a curette. - Patient tolerated well. Follow up in the clinic in 3-4 weeks to follow up on heart failure symptoms after the addit ion of Furosemide. I will consider adding a beta marly at this time to help his heart con dition to remain stable. Subjective: Geraldo Sanz) is an 78-year-old male presenting to the clinic with complaints of new swelling in his bilateral lower extremities that he has been experiencing over the past couple months as well as a sensation of his ears being plugged. Ed never used to have issues with swelling in his legs. His legs are not painful, but are apparently swollen. He also states that he has some increased fatigue recently that he sta hermes might "just be getting old." He also complains of a chronic, wet sounding cough that is non-productive for the most part. He does not formally have a diagnosis of congestive hear t failure. His most recent echocardiogram was performed on 09/01/18 and was mildly abnormal . His LVEF was estimated to be about 63%. He was noted to have some mild left ventricular hypertrophy and mild regurgitation of the mitral and tricuspid valves. There was grade 1 di astolic dysfunction. He has not been taking any diuretics and is not currently taking any b eta blockers. He is taking Amlodipine 10 mg daily, Losartan 50 mg daily, and 25 mg Hydrochl orothiazide daily for control of his hypertension. His hypertension is currently well contr olled with a blood pressure of 116/62 and heart rate of 71 bpm. He denies chest pain, palpi tations, or significantly increased shortness of breath at this time. He does report some i ncreased activity intolerance, but he attributes that, at least partially, to getting older. His , who is accompanying him to his appointment today, reports that he often eats temi nch fries and other unhealthy foods that she thinks may be making his situation worse. Ed denies fever, chills, or diaphoresis. Ed reports that he has recurrent problems with was building up in his ear canal. He has h ad them flushed before and is hoping to have it done in the clinic today. He does complain of muffled hearing due to his ears being plugged. He denies significant ear pain, drainage, or pressure. Allergies Allergen Reactions Ambien [Zolpidem] Anaphylaxis Social [...] Pack years: 45.00 Last attempt to quit: 1975 Years since quittin.4 Smokeless tobacco: Never Used Substance and Sexual Activity Alcohol use: No Drug use: No Sexual activity: Not on file Other Topics Concern Not on file Social History Narrative Not on file Current Outpatient Medications Medication Sig Dispense Refill amLODIPine (NORVASC) 10 MG tablet Take 1 tablet by mouth every morning. 90 tablet 3 aspirin 325 mg tablet Take 325 mg by mouth every morning. atorvaSTATin (LIPITOR) 10 mg tablet Take 1 tablet by mouth every morning. 90 tablet 3 cholecalciferol (VITAMIN D-3) 1000 units TABS Take 2 tablets by mouth every morning. 18 0 tablet 3 clopidogrel (PLAVIX) 75 mg tablet Take 75 mg by mouth every morning. cyanocobalamin (VITAMIN B-12) 1000 MCG tablet Take 1 tablet by mouth every morning. 90 tablet 3 DULoxetine (CYMBALTA) [address] capsule Take 1 capsule by mouth every morning. 90 capsul e 3 finasteride (PROPECIA) 1 MG tablet Take 1 tablet by mouth Daily. 30 tablet 2 furosemide (LASIX) 20 mg tablet Take 1 tablet by mouth Daily. 30 tablet 0 hydroCHLOROthiazide 25 mg tablet Take 1 tablet by mouth every morning. 90 tablet 3 insulin glargine (LANTUS) 100 units/mL injection (vial) Inject 35 Units under the skin every morning. levothyroxine (SYNTHROID) 75 MCG tablet Take 1 tablet by mouth every morning (before br eakfast). 90 tablet 3 loperamide (IMODIUM) 2 mg capsule Take 2 mg by mouth 4 times daily as needed for Diarrh ea. losartan (COZAAR) 50 mg tablet Take 1 tablet by mouth every morning. 90 tablet 3 naproxen (NAPROSYN) 500 mg tablet Take 500 [...] skin nightly. 90 patch 1 traZODone (DESYREL) 100 mg tablet Take 1 tablet by mouth nightly. 90 tablet 3 urea (CARMOL) 40 % CREA Apply 1 Application topically Daily as needed for Dry Skin. No current facility-administered medications for this visit. Review of Systems See HPI. Objective: Vitals: BP 116/62 | Pulse 71 | Resp 16 | Ht 1.676 m (5' 6") | Wt 96.6 kg (213 lb) | SpO2 92% | BMI 34.38 kg/m Physical Exam Constitutional: He is oriented to person, place, and time. He appears well-developed and we ll-nourished. No distress. HENT: Right Ear: Tympanic membrane, external ear and ear canal normal. Left Ear: Tympanic membrane and external ear normal. Bilateral cerument impactions were resolved after irrigation. A moderate amount of epithel ium and cerumen were unable to be removed from the inferior border of the left ear canal. T he TM was able to be visualized. The obstruction in the ear canals were resolved with irrig ation and minimal assistance with a curette. . Cardiovascular: Normal rate, regular rhythm and normal heart sounds. Pulmonary/Chest: Effort normal. No respiratory distress. He has decreased breath sounds. He has no wheezes. He has no rales. Musculoskeletal: He exhibits edema (2+ pitting edema to bilateral lower extremities. ). Neurological: He is alert and oriented to person, place, and time. Skin: Skin is warm and dry. He is not diaphoretic. Psychiatric: His speech is normal and behavior is normal. Thought content normal. His mood appears not anxious. His affect is not angry, not blunt, not labile and not inappropriate. Mary teran exhibits a depressed mood. This note was transcribed using voice recognition [...] [place] | | | | | | [address] | | | | | | [phone] | | | | | | | | +--------+---------+ + + + | 02/26/ | Office | Urology | Lillie Fowler | | | 2018 | Visit | | [address] | | | | | | [address] | | | | | | [place] | | | | | | [address] | | | | | | [phone] | | | | | | | | +--------+---------+ + + + | 03/16/ | Office | Neurology | Theresa, | | | 2018 | Visit | | [address]DA [address] | | | | | [address] [place], | | | | | | [place] [address] | | | | | | [phone] | | | | | | | [...] [place] | | | | | | [address] | | | | | | | [...] | | | care | | | Customer Service Attendant-C | | | | | | [...] | | | care | | | Customer Service Attendant-C | | | | | | [...] | | | care | | | Customer Service Attendant-C | | | | | | [...] | | | care | | | Customer Service Attendant-C | | | | | | | linical | + +--------+ +---+-----+ + + + | Note: Pt will | | check CBG's daily x1 | | Pt will take Lantis as | | prescribed | + + documented as of this encounter Results XR Chest PA and Lateral (09/24/2018 10:27 AM PDT) + + | Specimen | + + | | + + + + + | Impressions | Performed At | + + + | IMPRESSION: Hypoventilation Increased fluid status compared to August | [facility] | | 2018. No pulmonary edema. Dictated by: Massimo Alba | | | | | + + + + + + | Narrative | Performed At | + + + | EXAMINATION: XR CHEST PA AND LATERAL HISTORY: fatigue, Cough, | [facility] | | and lower extremity edema. Concern for fluid overload. COMPARISON | | | STUDY: August 23, 2018 FINDINGS: The lungs are mildly | | | hypoventilated. There is mild vascular indistinctness. | | | Cephalization of vessels is present at the apices. No pleural | | | effusion. No pneumothorax. Heart size is upper limits of normal. | | | No acute osseous process. | | + + + + + | Procedure Note | + + | Osito, Rad Results In - 09/24/2018 1:03 PM PDT EXAMINATION:XR CHEST PA AND | | LATERALHISTORY:fatigue, Cough, and lower extremity edema. Concern for fluid | | overload.COMPARISON STUDY:August 23, 2018FINDINGS:The lungs are mildly hypoventilated. | | There is mild vascular indistinctness. Cephalization of vessels is present at the | | apices. No pleural effusion. No pneumothorax. Heart size is upper limits of normal. | | No acute osseous process.IMPRESSION: IMPRESSION:HypoventilationIncreased fluid status | | compared to August 23, 2018. No pulmonary edema.Dictated by: Massimo Acevesectronically | | Signed by: Massimo Alba on 09/24/2018 12:59 PM | | | |FINDINGS: | |The lungs are mildly hypoventilated. There is mild vascular indistinctness. Cephalization of vessels is present at the apices. No pleural effusion. No pneumothorax. Heart size is upper limits of normal. No acute osseous process. | | | |IMPRESSION: | |IMPRESSION: | |Hypoventilation | |Increased fluid status compared to August 23, 2018. No pulmonary edema. | | | |Dictated by: Massimo Alba | | | | | + + + +---------+ + + | Performing | Address | City/State/Zipcode | Phone Number | | Organization | | | | + +---------+ + + | [facility] | | | | + +---------+ + + CBC with Differential (09/24/2018 10:04 AM PDT) + + + + + [...] + + + + | RBC | 3.77 (L) | 4.36 - 5.83 | [place] | | | | | M/uL | [facility] | [facility] | | | | [facility] | | | | | | [facility] | | + + + + + + | Hemoglobin | 12.0 (L) | 13.1 - 17.4 | [place] | | | | | g/dL | [facility] | [facility] | | | | | [facility] | | | | | | [facility] | | + + + + + + | Hematocrit | 34.8 (L) | 39.0 - 51.9 % | [place] | | | | | | [facility] | [facility] | | | | | [facility] | | | | | | [facility] | | + + + + + + | MCV | 92.2 | 82.0 - 96.0 fL | [place] | | | | | | [facility] | [facility] | | | [facility] | | | | | [facility] | | + + + + + + | MCH | 31.8 | 27.7 - 32.3 pg | [place] | | | | | | [facility] | [facility] | | | | [facility] | | | | | | [facility] | | + + + + + + | MCHC | 34.5 | 32.0 - 36.9 | [place] | | | | | g/dL | [facility] | | | [facility] | | | | | | [facility] | | + + + + + + | RDW-CV | 17.9 (H) | 0.0 - 17.0 % | [...] + + + + | MPV | 9.1 (L) | 9.4 - 12.4 fL | [place] | | | | | | [facility] | [facility] | | [facility] | | | | | | [facility] | | + + + + + + | % | 56.7 | 42.0 - 76.0 % | [place] | | | Neutrophils | | | [facility] | | [facility] | | | | | | [facility] | | | | | | [facility] | | + + + + + + | % | 17.9 (L) | 20.0 - 40.0 % | [...] + + + + | % | 8.3 (H) | 0.0 - 7.0 % | [...] + + + + | Absolute | 5.40 | 2.80 - 7.70 | [place] | | | Neutrophils | | K/uL | [facility] | [facility] | [facility] | | | | | | [facility] | | + + + + + + | Absolute | 1.70 | 1.20 - 3.30 | [place] | | | Lymphocytes | | K/uL | [facility] | [facility] | | | [facility] | | | | | | [facility] | | + + + + + + | Absolute | 1.60 (H) | 0.00 - 0.80 | [place] | | | Monocytes | | K/uL | [facility] | [facility] | | | | [facility] | | | | | | [facility] | | + + + + + + | Absolute | 0.80 (H) | 0.00 - 0.70 | [place] [...] + + | [facility] | [address] | [place] [address] | [phone] | | [facility] | | | | | [facility] | | | | + + + + + Basic Metabolic Panel (09/24/2018 10:04 AM PDT) + +-------+ + + + | Component | Value | Ref Range | Performed | Pathologist | | | | | At | Signature | + +-------+ + + + | Na | 142 | 132 - 143 | [place] | | | | | mmol/L | [facility] | | [facility] | | | | | [facility] | | | | | | [facility] | | + +-------+ + + + | K | 3.8 [...] +-------+ + + + | Glucose | 97 | 70 - 110 mg/dL | [place] | | | | | | [facility] | [facility] | | | | | [facility] | | | | | | [facility] | | + +-------+ + + + | BUN | 13 | 5 - 26 mg/dL | [place] | | | | | | [facility] | [facility] | | | [facility] | | | | | | [facility] | | + +-------+ + + + | Creatinine | 1.03 | 0.60 - 1.30 | [place] | [...] | mL/min/1.73m2 | [facility] | [facility] | | | | | [facility] | | | | | | [facility] | | + +-------+ + + + | Calcium | 8.7 | 8.3 - 10.0 | [place] | | | | | mg/dL | [facility] | [facility] | | | | | [facility] | | | | | | [facility] | | + +-------+ + + + | BUN/Creatin | 12.6 | 7.0 - 24.0 | [facility] | [...] + + | [facility] | [address] | [place] [address] | [phone] | | [facility] | | | | | [facility] | | | | + + + + + B Type Natriuretic Peptide (09/24/2018 10:04 AM PDT) + +-------+ + + + | Component | Value | Ref Range | Performed | Pathologist | | | | | At | Signature | + +-------+ + + + | NT-proBNP | 126 | pg/mL | [place] | | | | | | [facility] | | | | | | [facility] [...] + + | [facility] | [address] [facility] | [place] [address] | [phone] | | [facility] | | | | | [facility] | | | | + + + + + documented in this encounter Visit Diagnoses + + | Diagnosis | + + | Chronic diastolic heart failure (HCC) - Primary Chronic diastolic heart failure | + + | Cough | + + | Bilateral lower extremity edema Edema | + + | Bilateral hearing loss due to cerumen impaction | + + documented in this encounter Additional Health Concerns + + + + | Infection | Noted Time | Resolved Time | + + + + | Methicillin-resistant Staphylococcus aureus | 07/20/2018 4:00 PM | | | | PDT | | + + + + documented as of this encounter
--- OUTSIDE RECORDS SUMMARY | ~2019-02-17 | XMS | Encounter Summary ---
Demographics + + + | Address | [address] | | | [place] [address] | + + + | Home Phone [...] Team Providers + +------+ + | Care Pharmacy Grad Intern Name | Role | Phone | + [...] | +--------+ + + + + | 05/29/ | Telephone | [facility] | Charline Banks, | Care Coordination | | 2019 | | HOSPITAL OP CASE | Case | | | | | MANAGEMENT [address] | Dump [employer]-Clinical | | | | | [place] | | | | | | [place] | | | | | | [address] | | | | | | [phone] | | | +--------+ + + + [...] [place] | | | | | | [address] | | | | | | [phone] | | | | | | | | +--------+---------+ + + + | 02/26/ | Office | Urology | Lillie Fowler | | | 2018 | Visit | | [address]ILLIE Lopez [address] | | | | | | [address] | | | | | | [place], [place] | | | | | | [address] | | | | | | [phone] | | | | | | | | +--------+---------+ + + + | 03/16/ | Office | Neurology | Theresa, | | | 2018 | Visit | | [address]DA [address] | | | | [address] [place], | | | | | | [place] [address] | | | | | | [phone] | | | | | | | | +--------+---------+ + + + | 04/12/ | Office | Primary Care | Massimo Ramos | | | 2019 | Visit | | [address] | | | | | | [place] | | | | | | [address] | | | | | | | | +--------+---------+ + + + | 10/03/ | Office | Neurology | Fabián Carias MD | | | 2019 | Visit | | [address] | | | | | | [place] | | | | | | [address] | | | | | | | [...] | | | care | | | Dump Motorman-C | | | | | | | [...] | | | care | | | Dump Motorman-C | | | | | | | [...] | | | care | | | Dump Motorman-C | | | | | | | [...] | | | care | | | Dump Motorman-C | | | | | | | linical | + +--------+ +---+-----+ + + + | Note: Pt will | | check CBG's daily x1 | | Pt will take Lantis as | | prescribed | + + documented as of this encounter Visit Diagnoses Not on filedocumented in this encounter"
--- OUTSIDE RECORDS SUMMARY | ~2019-02-17 | XMS | Encounter Summary ---
Demographics + + + | Address | [address] | | | [place] [address] | + + + | Home Phone [...] Providers + +------+ + | Care [employer] Hazmat Tanker Driver Name | Role | Phone | [...] | | | [place] | [place] [address] | | | | | [address] | [phone] | | | | | [phone] | | | +--------+ + + + [...] [place] | | | | | | [address] | | | | | | [phone] | | | | | | | | +--------+---------+ + + + | 02/26/ | Office | Urology | Lillie Fowler | | | 2018 | Visit | | [address]ILLIE Lopez [address] | | | | | | [address] | | | | | | [place] | | | | | | [address] | | | | | | [phone] | | | | | | | | +--------+---------+ + + + | 03/16/ | Office | Neurology | Theresa, | | | 2018 | Visit | | [address]DA [address] | [address] [place], | | | | | | [place] [address] | | | | | | [phone] | | | | | | | | +--------+---------+ + + + | 04/12/ | Office | Primary Care | Massimo Ramos | | | 2019 | Visit | | MD [address] | | | | | | [address] [place] | | | | | | [address] | | | | | | | | +--------+---------+ + + + | 10/03/ | Office | Neurology | Fabián Carias MD | | | 2019 | Visit | | [address] | | | | | | [place] | | | | | | [address] | | | | | | | [...] | | | care | | | Veneer Manufacturer-C | | | | | | | [...] | | | care | | | Veneer Manufacturer-C | | | | | | | [...] | | | care | | | Veneer Manufacturer-C | | | | | | | [...] | | | care | | | Veneer Manufacturer-C | | | | | | | linical | + +--------+ +---+-----+ + + + | Note: Pt will | | check CBG's daily x1 | | Pt will take Lantis as | | prescribed | + + documented as of this encounter Visit Diagnoses Not on filedocumented in this encounter"
--- OUTSIDE RECORDS SUMMARY | ~2019-02-17 | XMS | Encounter Summary ---
Demographics + + + | Address | [address] | | | [place] [address] | + + + | Home Phone | | + + + | Preferred Language | Unknown | + + + | Marital Status | | + + + | Voodoo Affiliation | 1025 | + + + [...] Team Providers + +------+ + | Care Hired Help Name | Role | Phone | + +------+ + | oHracio Silvestre DO | PCP | | + [...] | 2017 | | [facility] | DO [address] [place] | | | | | [facility]ICAL [facility] [address] | [facility], [place] | | | | | [address] [place], | [address] | | | | | [place] [address] | [phone] | | | | | [phone] | | | +--------+--------+ + + + [...] [place] | | | | | | [address] | | | | | | [phone] | | | | | | | | +--------+---------+ + + + | 02/26/ | Office | Urology | Lillie Fowler | | | 2018 | Visit | | [address]ILLIE Lopez [address] | | | | | | [address] | | | | | | [place], [place] | | | | | | [address] | | | | | | [phone] | | | | | | | | +--------+---------+ + + + | 03/16/ | Office | Neurology | Theresa, | | | 2018 | Visit | | SH[address]DA [address] | | | | | [address] [place], | | | | | | [place] [address] | | | | | | [phone] | | | | | | | | +--------+---------+ + + + | 04/12/ | Office | Primary Care | Massimo Ramos | | | 2019 | Visit | | MD [address] | | | | | | [place] | | | | | | [address] | | | | | | | | +--------+---------+ + + + | 10/03/ | Office | Neurology | Fabián Carias MD | | | 2019 | Visit | | [address] | | | | | | [place] | | | | | | [address] | | | | | | | [...] | | | care | | | Rf Manager-C | | | | | | [...] | | | care | | | Rf Manager-C | | | | | | [...] | | | care | | | Rf Manager-C | | | | | | [...] | | | care | | | Rf Manager-C | | | | | | | linical | + +--------+ +---+-----+ + + + | Note: Pt will | | check CBG's daily x1 | | Pt will take Lantis as | | prescribed | + + documented as of this encounter Visit Diagnoses Not on filedocumented in this encounter"
--- OUTSIDE RECORDS SUMMARY | ~2019-02-17 | XMS | Encounter Summary ---
Demographics + + + | Address | [address] | | | [place] [address] | + + + | Home Phone [...] Providers + +------+ + | Care Oil Well Services Supervisor Name | Role | Phone | [...] + + | 01/25/ | Telephone | [facility] | Charline Banks, | Care Coordination | | 2019 | | [facility] | Case | | | | | [facility] | Improvement Lead-Clinical | | | | | [address] [facility], | | | | | | [place] [address] | | | | | | [phone] | | | +--------+ + + + [...] [place] | | | | | | [address] | | | | | | [phone] | | | | | | | | +--------+---------+ + + + | 02/26/ | Office | Urology | Lillie Fowler | | | 2018 | Visit | | LILLIE Lopez [address] | | | | | | [address] | | | | | | [place], [place] | | | | | | [address] | | | | | | [phone] | | | | | | | | +--------+---------+ + + + | 03/16/ | Office | Neurology | Theresa, | | | 2018 | Visit | | SHONDA M[address] | | | | [address] [place], | | | | | | [place] [address] | | | | | | [phone] | | | | | | | | +--------+---------+ + + + | 04/12/ | Office | Primary Care | Massimo Ramos Pedro Luis | | | 2019 | Visit | | MD [address] | | | | | | [place] | | | | | | [address] | | | | | | | | +--------+---------+ + + + | 10/03/ | Office | Neurology | Fabián Carias MD | | | 2019 | Visit | | [address] | | | | | | [place] | | | | | | [address] | | | | | | | [...] Lifest | Coordinatio | | Yes | lAlsen, | | function and decrease | yle | n of | | | Charline M, | | dehydration | | complex | | | Case | | | | care | | | Improvement Lead-C | | | | | | [...] | | | care | | | Improvement Lead-C | | | | | | [...] | | | care | | | Improvement Lead-C | | | | | | [...] | | | care | | | Improvement Lead-C | | | | | | [...]
--- OUTSIDE RECORDS SUMMARY | ~2019-02-17 | XMS | Encounter Summary ---
Demographics + + + | Address | [address] | | | [place] [address] | + + + | Home Phone [...] Team Providers + +------+ + | Care Assembly Inspector Helper Name | Role | Phone | [...] Description | +--------+--------+ + + + | 04/08/ | Refill | [place] [facility] | Horacio Silvestre, | Medication Refill | | 2019 | | [facility] | DO [address] | | | | | MEDICAL CL[facility] [address] | [facility], [place] | | | | | [address] [facility], | [address] | | | | | [place] [address] | [phone] | | | | | [phone] | | | +--------+--------+ + + + [...] [place] | | | | | | [address] | | | | | | [phone] | | | | | | | | +--------+---------+ + + + | 02/26/ | Office | Urology | Lillie Fowler | | | 2019 | Visit | | LILLIE Lopez [address] | | | | | | [address] | | | | | | [place], [place] | | | | | | [address] | | | | | | [phone] | | | | | | | | +--------+---------+ + + + | 03/16/ | Office | Neurology | Theresa, | | | 2018 | Visit | | [address] | | | | | | [address] [place], | | | | | | [place] [address] | | | | | | [phone] | | | | | | | | +--------+---------+ + + + | 04/12/ | Office | Primary Care | Massimo Ramos Pedro Luis | | | 2019 | Visit | | MD Fer [address] | | | | | | [place] | | | | | | [address] | | | | | | | | +--------+---------+ + + + | 10/03/ | Office | Neurology | Fabián Carias MD | | | 2019 | Visit | | [address] | | | | | | [place] | | | | | | [address] | | | | | | | [...] | | care | | | Cyber Instructor-C | | | | | | | [...] | | care | | | Cyber Instructor-C | | | | | | | [...] | | care | | | Cyber Instructor-C | | | | | | | [...] | | care | | | Cyber Instructor-C | | | | | | | linical | + +--------+ +---+-----+ + + + | Note: Pt will | | check CBG's daily x1 | | Pt will take Lantis as | | prescribed | + + documented as of this encounter Visit Diagnoses Not on filedocumented in this encounter"
--- OUTSIDE RECORDS SUMMARY | ~2019-02-17 | XMS | Encounter Summary ---
Demographics + + + | Address | [address] | | | [place] [address] | + + + | Home Phone | | + + + | Preferred Language | Unknown | + + + | Marital Status | | + + + | Baptist Affiliation | 1025 | + + + | Race | Unknown | + + + | Ethnic Group | Unknown | + + + Author + + + | Author | [facility] | | | and [place] | + + + | Organization | [facility] | | | [...] Team Providers + +------+ + | Care Screw 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 Single Spindle Name | Role | Phone | + [...] Description | +--------+--------+ + + + | 08/22/ | Refill | [place] [facility] | Horacio Silvestre, | Medication Refill | | 2017 | | [facility] | [address] | | | | | MEDICAL CLIN[address] | [facility], [place] | | | | | [address] [place], | [address] | | | | | [place] [address] | [phone] | | | | | [phone] | | | +--------+--------+ + + + [...] [place] | | | | | | [address] | | | | | | [phone] | | | | | | | | +--------+---------+ + + + | 02/26/ | Office | Urology | Lillie Fowler | | | 2018 | Visit | | [address] | | | | | | [address] | | | | | | [place], [place] | | | | | | [address] | | | | | | [phone] | | | | | | | | +--------+---------+ + + + | 03/16/ | Office | Neurology | Theresa, | | | 2018 | Visit | | [address] | | | | | | [address] [place], | | | | | | [place] [address] | | | | | | [phone] | | | | | | | | +--------+---------+ + + + | 04/12/ | Office | Primary Care | Massimo Ramos | | | 2019 | Visit | | MD Fer [address] | | | | | | [place] | | | | | | [address] | | | | | | | | +--------+---------+ + + + | 10/03/ | Office | Neurology | Fabián Carias MD | | | 2019 | Visit | | [address] | | | | | | [place] | | | | | | [address] | | | | | | | [...] | | | care | | | Remelt Operator-C | | | | | | [...] | | | care | | | Remelt Operator-C | | | | | | [...] | | | care | | | Remelt Operator-C | | | | | | [...] | | | care | | | Remelt Operator-C | | | | | | | linical | + +--------+ +---+-----+ + + + | Note: Pt will | | check CBG's daily x1 | | Pt will take Lantis as | | prescribed | + + documented as of this encounter Visit Diagnoses Not on filedocumented in this encounter"
--- OUTSIDE RECORDS SUMMARY | ~2019-02-17 | XMS | Encounter Summary ---
Demographics + + + | Address | [address] | | | [place] [address] | + + + | Home Phone [...] + | Author | [facility] | | | and [place] | + + + | Organization | [facility] | | [...] Team Providers + +------+ + | Care Orthopedic Shoe Fitter Name | Role | Phone | + +------+ + | Horacio Silvestre DO | PCP | | + +------+ + Encounter Details +--------+ + + + + | Date | Type | Department | Care Team | Description | +--------+ + + + + | 05/10/ | Orders Only | [facility] | Horacio Silvestre, | | | 2017 | | [facility] | DO [address] | | | | | MEDICAL CLIN[facility] [address] | [place], [place] | | | | | [address] [place], | [address] | | | | | [place] [address] | [phone] | | | | | [phone] | | | +--------+ + + + [...] [place] | | | | | | [address] | | | | | | [phone] | | | | | | | | +--------+---------+ + + + | 02/26/ | Office | Urology | Lillie Fowler | | | 2018 | Visit | | [address] | | | | | | [address] | | | | | | [place], [place] | | | | | | [address] | | | | | | [phone] | | | | | | | | +--------+---------+ + + + | 03/16/ | Office | Neurology | Theresa, | | | 2018 | Visit | | [address] | | | | | | [address] [place], | | | | | | [place] [address] | | | | | | [phone] | | | | | | | | +--------+---------+ + + + | 04/12/ | Office | Primary Care | Massimo Ramos | | | 2019 | Visit | | MD Fer [address] | | | | | | [address] [place], [place] | | | | | | [address] | | | | | | | | +--------+---------+ + + + | 10/03/ | Office | Neurology | Fabián Carias MD | | | 2019 | Visit | | [address] | | | | | | [place] | | | | | | [address] | | | | | | | [...] | | care | | | Beverage Server-C | | | | | | | [...] | | care | | | Beverage Server-C | | | | | | | [...] | | care | | | Beverage Server-C | | | | | | | [...] | | care | | | Beverage Server-C | | | | | | | linical | + +--------+ +---+-----+ + + + | Note: Pt will | | check CBG's daily x1 | | Pt will take Lantis as | | prescribed | + + documented as of this encounter Visit Diagnoses Not on filedocumented in this encounter"
--- OUTSIDE RECORDS SUMMARY | ~2019-02-17 | XMS | Encounter Summary ---
Demographics + + + | Address | [address] | | | [place] [address] | + + + | Home Phone [...] Team Providers + +------+ + | Care Real Estate Transaction Coordinator Name | Role | Phone | [...] Description | +--------+--------+ + + + | 12/29/ | Refill | [place] [facility] | Horacio Silvestre, | Medication Refill | | 2017 | | [facility] | [address] | | | | | MEDICAL CLIN[address] | [facility], [place] | | | | | [address] [place], | [address] | | | | | [place] [address] | [phone] | | | | | [phone] | | | +--------+--------+ + + + [...] [place] | | | | | | [address] | | | | | | [phone] | | | | | | | | +--------+---------+ + + + | 02/26/ | Office | Urology | Lillie Fowler | | | 2018 | Visit | | [address]IE [address] | | | | | | [address] | | | | | | [place], [place] | | | | | | [address] | | | | | | [phone] | | | | | | | | +--------+---------+ + + + | 03/16/ | Office | Neurology | Theresa, | | | 2018 | Visit | | [address] | | | | | | [address] [place], | | | | | | [place] [address] | | | | | | [phone] | | | | | | | | +--------+---------+ + + + | 04/12/ | Office | Primary Care | Massimo Ramos | | | 2019 | Visit | | MD Fer [address] | | | | | | [place] | | | | | | [address] | | | | | | | | +--------+---------+ + + + | 10/03/ | Office | Neurology | Fabián Carias MD | | | 2019 | Visit | | [address] | | | | | | [place] | | | | | | [address] | | | | | | | [...] | | | care | | | Grants Director-C | | | | | | [...] | | | care | | | Grants Director-C | | | | | | [...] | | | care | | | Grants Director-C | | | | | | [...] | | | care | | | Grants Director-C | | | | | | [...] | | unspecified | + + | 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
--- OUTSIDE RECORDS SUMMARY | ~2019-02-17 | XMS | Encounter Summary ---
Demographics + + + | Address | [address] | | | [place] [address] | + + + | Home Phone [...] Team Providers + +------+ + | Care Ios Software Engineer Name | Role | Phone | [...] 10/19/ | Telephone | [facility] [facility] | Charline Banks, | Care Coordination | | 2019 | | [facility] | Case | | | | | MEDICAL CLIN[facility] [address] | Television Maintenance Man-Clinical | | | | | [facility] [place], | | | | | | [place] [address] | | | | | | [phone] | | | +--------+ + + + [...] [place] | | | | | | [address] | | | | | | [phone] | | | | | | | | +--------+---------+ + + + | 02/26/ | Office | Urology | Lillie Fowler | | | 2018 | Visit | | [address] | | | | | | [address] | | | | | | [place], [place] | | | | | | [address] | | | | | | [phone] | | | | | | | | +--------+---------+ + + + | 03/16/ | Office | Neurology | Theresa, | | | 2018 | Visit | | [address] | | | | | | [address] [place], | | | | | | [place] [address] | | | | | | [phone] | | | | | | | | +--------+---------+ + + + | 04/12/ | Office | Primary Care | Massimo Ramos | | | 2019 | Visit | | MD Fer [address] | | | | | | [place] | | | | | | [address] | | | | | | | | +--------+---------+ + + + | 10/03/ | Office | Neurology | Fabián Carias MD | | | 2019 | Visit | | [address] | | | | | | [place] | | | | | | [address] | | | | | | | [...] | | | care | | | Television Maintenance Man-C | | | | | | | [...] | | | care | | | Television Maintenance Man-C | | | | | | | [...] | | | care | | | Television Maintenance Man-C | | | | | | | [...] | | | care | | | Television Maintenance Man-C | | | | | | | [...]
--- OUTSIDE RECORDS SUMMARY | ~2019-02-17 | XMS | Encounter Summary ---
Demographics + + + | Address | [address] | | | [place] [address] | + + + | Home Phone [...] Providers + +------+ + | Care Legal Support Manager Name | Role | Phone | + +------+ + | Horacio Silvestre DO | PCP | | + +------+ + Encounter Details +--------+ + + + + | Date | Type | Department | Care Team | Description | +--------+ + + + + | 06/02/ | Orders Only | [facility] [facility] | Horacio Silvestre, | | | 2017 | | [facility] | DO [address] | | | | | MEDICAL CLIN[address] | [place], [place] | | | | | [address] [place], | [address] | | | | | [place] [address] | [phone] | | | | | [phone] | | | +--------+ + + + [...] [place] | | | | | | [address] | | | | | | [phone] | | | | | | | | +--------+---------+ + + + | 02/26/ | Office | Urology | Lillie Fowler | | | 2018 | Visit | | [address] | | | | | | [address] | | | | | | [place], [place] | | | | | | [address] | | | | | | [phone] | | | | | | | | +--------+---------+ + + + | 03/16/ | Office | Neurology | Theresa, | | | 2018 | Visit | | [address] | | | | | | [address] [place], | | | | | | [place] [address] | | | | | | [phone] | | | | | | | | +--------+---------+ + + + | 04/12/ | Office | Primary Care | Massimo Ramos | | | 2019 | Visit | | MD Fer [address] | | | | | | DR [place], [place] | | | | | | [address] | | | | | | | | +--------+---------+ + + + | 10/03/ | Office | Neurology | Fabián Carias MD | | | 2019 | Visit | | [address] | | | | | | [place] | | | | | | [address] | | | | | | | [...] | | | care | | | Product Safety Manager-C | | | | | | [...] | | | care | | | Product Safety Manager-C | | | | | | [...] | | | care | | | Product Safety Manager-C | | | | | | [...] | | | care | | | Product Safety Manager-C | | | | | | | linical | + +--------+ +---+-----+ + + + | Note: Pt will | | check CBG's daily x1 | | Pt will take Lantis as | | prescribed | + + documented as of this encounter Visit Diagnoses Not on filedocumented in this encounter"
--- OUTSIDE RECORDS SUMMARY | ~2019-02-17 | XMS | Encounter Summary ---
Demographics + + + | Address | [address] | | | [place] [address] | + + + | Home Phone [...] Providers + +------+ + | Care Entry Tech Name | Role | Phone | [...] Medication Refill | | 2017 | | [facility] | DO [address] | | | | | MEDICAL CLIN[address] | [facility], [place] | | | | | [address] [place], | [address] | | | | | [place] [address] | [phone] | | | | | [phone] | | | +--------+--------+ + + + [...] [place] | | | | | | [address] | | | | | | [phone] | | | | | | | | +--------+---------+ + + + | 02/26/ | Office | Urology | Lillie Fowler | | | 2018 | Visit | | [address] | | | | | | [address] | | | | | | [place], [place] | | | | | | [address] | | | | | | [phone] | | | | | | | | +--------+---------+ + + + | 03/16/ | Office | Neurology | Theresa, | | | 2018 | Visit | | [address] | | | | | | [address] [place], | | | | | | [place] [address] | | | | | | [phone] | | | | | | | | +--------+---------+ + + + | 04/12/ | Office | Primary Care | Massimo Ramos | | | 2019 | Visit | | MD Fer [address] | | | | | | [place] | | | | | | [address] | | | | | | | | +--------+---------+ + + + | 10/03/ | Office | Neurology | Fabián Carias MD | | | 2019 | Visit | | [address] | | | | | | [place] | | | | | | [address] | | | | | | | [...] | | | care | | | Mis Specialist-C | | | | | | [...] | | | care | | | Mis Specialist-C | | | | | | [...] | | | care | | | Mis Specialist-C | | | | | | [...] | | | care | | | Mis Specialist-C | | | | | | | linical | + +--------+ +---+-----+ + + + | Note: Pt will | | check CBG's daily x1 | | Pt will take Lantis as | | prescribed | + + documented as of this encounter Visit Diagnoses Not on filedocumented in this encounter"
--- OUTSIDE RECORDS SUMMARY | ~2019-02-17 | XMS | Encounter Summary ---
Demographics + + + | Address | [address] | | | [place] [address] | + + + | Home Phone [...] + + | Author | [facility] | | | and [place] | + + + | Organization | [facility] | | [...] Team Providers + +------+ + | Care Photoengraving Finisher Name | Role | Phone | + +------+ + | Horacio Silvestre DO | PCP | | + +------+ + Reason for Visit + + + | Reason | Comments | + + + | Back Pain | EMG- lower extremties | + + + Encounter Details +--------+ + + + + | Date | Type | Department | Care Team | Description | +--------+ + + + + | 04/03/ | Procedure | [facility] | Fabián Carias MD | Numbness and | | 2017 | visit | [facility] | [address] | tingling of both | | | | CLINIC [address] | [place] | lower extremities | | | | DR [place], | [address] | (Primary Dx); Lumbar | | | | [place] [address] | | radiculopathy; | | | | [phone] | | Diabetic | | | | | | polyneuropathy | | | | | | associated with type | | | | | | 2 diabetes mellitus | | | | | | ([facility]) | +--------+ + + + + Social [...] + + + | Blood Pressure | 128/90 | 04/03/2017 2:16 PM | | | | | PST | | + + + + + | Pulse | 76 | 04/03/2017 2:16 PM | | | | | PST | | + + + + + | Temperature | - | - | | + + + + + | Respiratory Rate | 20 | 04/03/2017 2:16 PM | | | | | PST | | + + + + + | Oxygen Saturation | 93% | 04/03/2017 2:16 PM | | | | | PST | | + + + + + | Inhaled Oxygen | - | - | | | Concentration | | | | + + + + + | Weight | 93 kg (205 lb) | 04/03/2017 2:16 PM | | | | | PST | | + + + + + | Height | 167.6 cm (5' 6") | 04/03/2017 2:16 PM | | | | | PST | | + + + + + | Body Mass Index | 33.09 | 04/03/2017 2:16 PM | | | | | PST | | + + + + + documented in this encounter Plan of Treatment [...] [place] | | | | | | [address] | | | | | | [phone] | | | | | | | | +--------+---------+ + + + | 02/26/ | Office | Urology | Lillie Fowler | | | 2018 | Visit | | [address] | | | | | | [address] | | | | | | [place], [place] | | | | | | [address] | | | | | | [phone] | | | | | | | | +--------+---------+ + + + | 03/16/ | Office | Neurology | Theresa, | | | 2018 | Visit | | [address] | | | | | | [address] [place], | | | | | | [place] [address] | | | | | | [phone] | | | | | | | | +--------+---------+ + + + | 04/12/ | Office | Primary Care | Massimo Ramos | | | 2019 | Visit | | MD [address] | | | | | | [place] | | | | | | [address] | | | | | | | | +--------+---------+ + + + | 10/03/ | Office | Neurology | Fabián Carias MD | | | 2019 | Visit | | [address] | | | | | | [place] | | | | | | [address] | | | | | | | [...] | | | care | | | Beveler-C | | | | | | | [...] | | | care | | | Beveler-C | | | | | | | [...] | | | care | | | Beveler-C | | | | | | | [...] | | | care | | | Beveler-C | | | | | | | [...] | + +--------+ + + + | EMG STUDY | Routin | 04/03/2017 | Numbness and | Results for this | | | e | 2:15 PM | tingling of both | procedure are in the | | | | PST | lower extremities | results section. | | | | | Lumbar radiculopathy | | | | | | Diabetic | | | | | | polyneuropathy | | | | | | associated with type | | | | | | 2 diabetes mellitus | | | | | | ([facility]) | | + +--------+ + + + documented in this encounter Results EMG Study- Lower Extremity (04/03/2017 2:15 PM PST) + + + | Narrative | Performed At | + + + | Fabián Carias, | | | 04/03/2017 15:07see scanned chart, nerve conduction | | | studies/tomography of the lower extremities with evidence of severe | | | diabetic polyneuropathy and lumbosacral radiculopathy | | + + + + + | Procedure Note | + + | Fabián Carias MD - 04/03/2017 2:15 PM PST see scanned chart, nerve conduction | | studies/tomography of the lower extremities with evidence of severe diabetic | | polyneuropathy and lumbosacral radiculopathy | + + documented in this encounter Visit Diagnoses + + | Diagnosis | + + | Numbness and tingling of both lower extremities - Primary | + + | Lumbar radiculopathy Thoracic or lumbosacral neuritis or radiculitis, unspecified | + + | Diabetic polyneuropathy associated with type 2 diabetes mellitus (HCC) | + + documented in this encounter
--- OUTSIDE RECORDS SUMMARY | ~2019-02-17 | XMS | Encounter Summary ---
Demographics + + + | Address | [address] | | | [place] [address] | + + + | Home Phone [...] Team Providers + +------+ + | Care Hardware Installation Coordinator Name | Role | Phone | [...] + + + + + + | Canceled | Specialty | Dermatology | Diagnoses | Terrell, | Kenny, | | | Services | | Skin lesion | Faraz Addison DNP | Lin | | | Required | | of scalp | [address] | MD Narinder | | | | | | [address] [place] | [address] | | | | | | [place], [place] | [place] | | | | | | [address] | [place] | | | | | | Phone: | [address] | | | | | | [phone] | Phone: | | | | | | Fax: | [phone] | | | | | | [phone] | Fax: | | | | | | | [phone] | + + + + + + + Reason for Visit + + + | Reason | Comments | + + + | Pre-op Exam | catarract surgery | + + + | Medication Refill | oxy | + + + | Breathing Problem | Wheezing when breathing | + + + Encounter Details +--------+---------+ + + + | Date | Type | Department | Care Team | Description | +--------+---------+ + + + | 04/22/ | Office | [facility] | Faraz Tejada, | Pre-op examination | | 2018 | Visit | [facility] | DNP [address] | (Primary Dx); Skin | | | | [facility] [address] | [place] [address] | lesion of scalp; | | | | [address] [place], | [phone] | Type 2 diabetes | | | | [place] [address] | | mellitus with | | | | [phone] | | diabetic | | | | | | polyneuropathy, with | | | | | | long-term current | | | | | | use of insulin | | | | | | ([facility]); Multilevel | | | | | | degenerative disc | | | | | | disease; Respiratory | | | | | | crackles at right | | | | | | lung base; | | | | | | Dysfunction of both | | | | | | eustachian tubes; | | | | | | Melanoma [...] + + + | Blood Pressure | 126/68 | 04/22/2017 1:20 PM | | | | | PST | | + + + + + | Pulse | 79 | 04/22/2017 1:20 PM | | | | | PST | | + + + + + | Temperature | - | - | | + + + + + | Respiratory Rate | 18 | 04/22/2017 1:20 PM | | | | | PST | | + + + + + | Oxygen Saturation | 92% | 04/22/2017 1:20 PM | | | | | PST | | + + + + + | Inhaled Oxygen | - | - | | | Concentration | | | | + + + + + | Weight | 97.7 kg (215 lb 6.4 | 04/22/2017 1:20 PM | | | | oz) | PST | | + + + + + | Height | 167.6 cm (5' 5.98") | 04/22/2017 1:20 PM | | | | | PST | | + + + + + | Body Mass Index | 34.78 | 04/22/2017 1:20 PM | | | | | PST | | + + + + + documented in this encounter Progress Notes Faraz Tejada, NENO - 04/22/2017 1:30 PM PSTFormatting of this note might be different fro m the original. Patient ID: Geraldo Mcfadden is a 76 y.o. year old male Chief Complaint: Chief Complaint Patient presents with Pre-op Exam catarract surgery Medication Refill oxy Breathing Problem Wheezing when breathing Assessment and Plan: 1. Pre-op examination - Benign history for cardiac issues. Will forego EKG analysis at this time. - TSH; Future - CBC no Differential; Future - Comprehensive Metabolic Panel; Future 2. 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 He has also had Moh's Microsurgery for melanoma on his L ear historically. - [facility] - AMB Referral 3. Type 2 diabetes mellitus with diabetic polyneuropathy, with long-term current use of ins ulin (HCC) - Well controlled with A1C 6.2. Currently optimized for surgery. 4. Multilevel degenerative disc disease - oxyCODONE (ROXICODONE) 5 mg tablet; Take 1 tablet by mouth Twice daily as needed for Alanna n. Dispense: 56 tablet; Refill: 0 5. Respiratory crackles at right lung base - Concern for potential Pneumonia. Will evaluate CXR and treat for unspecified Upper Respi ratory Infection with Guaifenesin and Albuterol PRN (prescribed). - XR Chest PA and Lateral; Future 6. Dysfunction of both eustachian tubes - fluticasone (FLONASE) 50 mcg/nasal spray; 2 sprays by Nasal route Daily. Dispense: 16 g; Refill: 4 Follow up in clinic as needed or as indicated based on lab and imaging results. Subjective: Ed aguilar) is in today for a preoperative check prior to having eye surgery with Dr. Baldomero osborn. He has chronic back pain, diabetes that is managed with insulin. His last A1C in [facility] was 6.2. He is currently treated with Levothyroxine 137 mcg. History is significant fo r bowel perforation with ostomy and takedown surgery as well as a large hernia repair with m es. He takes oxycodone for chronic back pain. He denies chest pain or palpitations and st ates no cardiac history. He has had some wheezing and respiratory issues for the past week since some friends visited his house with a respiratory illness, but he states that his coug h is getting better. Breathing Problem He complains of cough, difficulty breathing, sputum production (yellow thick) and wheezing. There is no chest tightness, frequent throat clearing, hemoptysis, hoarse voice or shortnes s of breath. This is a new problem. The current episode started 1 to 4 weeks ago. The proble m occurs intermittently. The problem has been gradually improving. The cough is productive o f sputum. Associated symptoms include ear pain (ear pressure and popping. ) and malaise/fati oswaldo. Pertinent negatives include no appetite change, chest pain, dyspnea on exertion, ear co ngestion, fever, headaches, heartburn, myalgias, nasal congestion, orthopnea, PND, postnasal drip, rhinorrhea, sneezing, sore throat, sweats, trouble swallowing or weight loss. There i s no history of asthma, bronchiectasis, bronchitis, COPD, emphysema or pneumonia. Past medic al history comments: Quit smoking in 1974. Had double pneumonia in his childhood. . Allergies: Allergies Allergen Reactions Zolpidem Anaphylaxis Medications: Current Outpatient Prescriptions Medication Sig Dispense Refill aspirin 325 mg tablet Take 325 mg by mouth Daily. atenolol (TENORMIN) 25 mg tablet Take 25 mg by mouth Daily. atorvaSTATin (LIPITOR) 10 mg tablet Take 10 mg by mouth nightly. Cyanocobalamin (VITAMIN B-12) 1000 MCG/15ML LIQD Take by mouth. gabapentin (NEURONTIN) 300 mg capsule Take 600 mg by mouth 3 times daily. hydroCHLOROthiazide 25 mg tablet Take 25 mg [...] the skin nightly. 10 mL 3 levothyroxine (SYNTHROID, LEVOTHROID) 137 MCG tablet Take 137 mcg by mouth every mornin g (before breakfast). losartan (COZAAR) 50 mg tablet Take 50 mg by mouth Daily. omeprazole (PRILOSEC) 20 mg capsule Take 20 mg by mouth every morning (before breakfast ). oxyCODONE (ROXICODONE) 5 mg tablet Take 1 tablet by mouth Twice daily as needed for Pa in. 56 tablet 0 pregabalin (LYRICA) 100 mg capsule Take 100 mg by mouth 2 times daily. pseudoePHEDrine (SUDAFED) 120 mg 12 hr tablet Take 120 mg by mouth every 12 hours. sertraline (ZOLOFT) 50 mg tablet Take 50 mg by mouth Daily. testosterone (ANDRODERM) 2.5 mg/[address] 1 patch onto the skin Daily. traZODone (DESYREL) 50 mg tablet Take 50 mg by mouth nightly. No current facility-administered medications for this visit. Past Surgical History: Procedure Laterality Date APPENDECTOMY Azul Azul Takedown MOHS SURGERY Left L ear melanoma Ventral incisional hernia repair Past Medical History: Diagnosis Date Carpal tunnel syndrome, bilateral 05/31/2013 DDD (degenerative disc disease), cervical 05/22/2013 Diabetes mellitus (HCC) GERD (gastroesophageal reflux disease) Gout Hiatal hernia Hypertension 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, left (HCC) Neck pain, chronic 05/22/2013 Neuropathy ([facility]) Paresthesias - both hands 05/22/2013 Thyroid disease Social History Social History Main Topics Smoking status: Former Smoker Packs/day: 3.00 Quit date: 1974 Smokeless tobacco: Never Used Alcohol use No Drug use: No Sexual activity: Not on file Review of Systems Constitutional: Positive for fatigue and malaise/fatigue. Negative for appetite change, chi lls, diaphoresis, fever and weight loss. HENT: Positive for congestion and ear pain (ear pressure and popping. ). Negative for hoars e voice, nosebleeds, postnasal drip, rhinorrhea, sinus pain, sinus pressure, sneezing, sore throat and trouble swallowing. Respiratory: Positive for cough, sputum production (yellow thick) and wheezing. Negative fo r hemoptysis, choking, shortness of breath and stridor. Cardiovascular: Negative for chest pain, dyspnea on exertion, palpitations, leg swelling an d PND. Gastrointestinal: Positive for abdominal distention. Negative for abdominal pain, constipat ion, diarrhea, heartburn, nausea and vomiting. History of ruptured bowel with resultant ostomy and takedown. He then had a major her bebe that was repaired with mesh. Genitourinary: Negative. Musculoskeletal: Positive for arthralgias, back pain, neck pain and neck stiffness. Negativ e for gait problem, joint swelling and myalgias. Skin: Negative for color change, pallor, rash and wound. Lesions on the right side of forehead near the hairline. Neurological: Negative for headaches. Objective: Vitals: BP 126/68 | Pulse 79 | Resp 18 | Ht 1.676 m (5' 5.98") | Wt 97.7 kg (215 lb 6.4 oz) | SpO2 92% | BMI 34.78 kg/m Physical Exam Constitutional: He is oriented to person, place, and time. He appears well-developed and we ll-nourished. No distress. HENT: Head: Normocephalic and atraumatic. Right Ear: External ear and ear canal normal. A middle ear effusion is present. Left Ear: External ear and ear canal normal. A middle ear effusion is present. Eyes: Pupils are equal, round, and reactive to light. Cardiovascular: Normal rate, regular rhythm, normal heart sounds and intact distal pulses. Exam reveals no gallop and no friction rub. No murmur heard. Pulmonary/Chest: Effort normal. No respiratory distress. He has no decreased breath sounds. He has wheezes in the right middle field. He has no rhonchi. He has rales in the right lowe r field. He exhibits no tenderness. Abdominal: Soft. Bowel sounds are normal. He exhibits distension. He exhibits no mass. Ther e is no tenderness. There is no rebound and no guarding. Musculoskeletal: Normal range of motion. He exhibits no edema, tenderness or deformity. Neurological: He is alert and oriented to person, place, and time. He displays normal refle xes. No cranial nerve deficit. Skin: Skin is warm and dry. No [...] [place] | | | | | | [address] | | | | | | [phone] | | | | | | | | +--------+---------+ + + + | 02/26/ | Office | Urology | Lillie Fowler | | | 2018 | Visit | | LILLIE Lopez [address] | | | | | | [address] | | | | | | [place], [place] | | | | | | [address] | | | | | | [phone] | | | | | | | | +--------+---------+ + + + | 03/16/ | Office | Neurology | Theresa, | | | 2018 | Visit | | SHONDA Mckinney [address] | | | | | [address] [place], | | | | | | [place] [address] | | | | | | [phone] | | | | | | | | +--------+---------+ + + + | 04/12/ | Office | Primary Care | Massimo Ramos | | | 2019 | Visit | | MD Fer [address] | | | | | | [address] [place], [place] | | | | | | [address] | | | | | | | | +--------+---------+ + + + | 10/03/ | Office | Neurology | Fabián Carias MD | | | 2019 | Visit | | [address] | | | | | | [place] | | | | | | [address] | | | | | | | | +--------+---------+ + + + + +---------+--------+ + + | Name | Type | Priori | Associated Diagnoses | Order Schedule | | | | ty | | | + +---------+--------+ + + | XR Chest PA and | Imaging | Routin | Respiratory | Expected: | | Lateral | | e | crackles at right | 04/22/2017, Expires: | | | | | lung base | 04/22/2018 | + +---------+--------+ + + + + +--------+ + + | Name | Type | Priori | Associated Diagnoses | Order Schedule | | | | ty | | | + + +--------+ + + | Sudhir Peguero | Outpatient | Routin | Skin lesion of | Ordered: 04/22/2017 | | Clinic Dermatology | Referral | e | scalp | | | Group - AMB Referral | | | | [...] | | care | | | Family Helper-C | | | | | | [...] | | care | | | Family Helper-C | | | | | | [...] | | care | | | Family Helper-C | | | | | | [...] | | care | | | Family Helper-C | | | | | | | linical | + +--------+ +---+-----+ + + + | Note: Pt will | | check CBG's daily x1 | | Pt will take Lantis as | | prescribed | + + documented as of this encounter Results Comprehensive Metabolic Panel (04/22/2017 2:56 PM PST) + + + + + [...] + + + + | Glucose | 132 (H) | 70 - 110 [...] + + + + | Creatinine | 1.30 | 0.60 - 1.30 | [place] | | | | | mg/dL | [facility] | | | | | [facility] | | | | | | [facility] | | | | | | [facility] | | + + + + + + | eGFR if not | 53 (L)Comment: | >=60 | [place] | | | | GLOMERULAR FILTRATION | mL/min/1.73m2 | [facility] | | | [place] | RATE,ESTIMATED | | [facility] | | | | mL/min/1.99h6Bqai than | | REGIONAL | | | [...] + + + + | Calcium | 9.2 | 8.3 - 10.0 | [place] | [...] + + + + | Total | 7.9 | 6.6 - 8.5 g/dL | [place] | | | Protein | | | [facility] | | | | | [facility] | | | | | | [facility] | | | | | | CENTER LAB | | + + + + + + | AST | 30 | 0 - 38 U/L | [place] | | | | | | [facility] | | | | | | [facility] | | | | | | [facility] | | | | | | [facility] | | + + + + + + | ALT | 41 | 16 - 63 U/L | [place] | | | | | | [facility] | | | | | [facility] | | | | | | [facility] | | | | | | [facility] | | + + + + + + | Alkaline | 64 | 46 - 116 U/L | [place] | | | Phosphatase | | | [facility] | | | | | | [facility] | | | | | | [facility] | | | | | | [facility] LAB | | + + + + + + | Globulin | 3.9 | g/dL | [facility] | | | [...] + + | [facility] | [address] | [place] [address] | [phone] | | [facility] | | | | | [facility] | | | | + + + + + CBC no Differential (04/22/2017 2:56 PM PST) + +---------+ + + + | Component | Value | Ref Range | Performed | Pathologist | | | | | At | Signature | + +---------+ + + + | WBC | 9.7 | 4.6 - 10.5 K/uL | [facility] | | | | | | [facility] | | | | | [facility] | | + +---------+ + + + | RBC | 4.74 | 4.36 - 5.83 | [place] | | | | | M/uL | [facility] | | | | | | [facility] | | + +---------+ + + + | Hemoglobin | 14.2 | 13.1 - 17.4 | [place] | | | | | g/dL | [facility] | | | | | | [facility] | | + +---------+ + + + | Hematocrit | 42.8 | 39.0 - 51.9 % | [place] | | | | | | [facility] | | | | | | [facility] | | + +---------+ + + + | MCV | 90.3 | 82.0 - 96.0 fL | [place] | | | | | | [facility] | | | | | | [facility] | | + +---------+ + + + | MCH | 30.0 | 27.7 - 32.3 pg | [place] | | | | | | [facility] | | | | | | [facility] | | + +---------+ + + + | MCHC | 33.2 | 32.0 - 36.9 | [place] | | | | | g/dL | [facility] | | | | | | [facility] | | + +---------+ + + + | RDW-CV | 15.4 | 0.0 - 17.0 % | [facility] | | | | | | [facility] | | | | | | [facility] | | + +---------+ + + + | Platelet | 136 (L) | 150 - 450 K/uL | [facility] | | | Count | | | [facility] | | [facility] | | | | | | [facility] | | + +---------+ + + + | MPV | 11.5 [...] + + | [facility] | [address] | [place] [address] | [phone] | | [facility]ITAL [facility] | | | | + + + + + TSH (04/22/2017 2:56 PM PST) + +-------+ + + + | Component | Value | Ref Range | Performed | Pathologist | | | | | At | Signature | + +-------+ + + + | TSH | 2.78 | 0.36 - 3.74 | [facility] | [...] | + + + + + | [facility] | [address] | [place] [address] | [phone] | | [facility] | | | | | [facility] | | | | + + + + + documented in this encounter Visit Diagnoses + + | Diagnosis | + + | Pre-op examination - Primary Preoperative examination, unspecified | + + | Skin lesion of scalp Unspecified disorder of skin and subcutaneous tissue | + + | Type 2 diabetes mellitus with diabetic polyneuropathy, 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) | + + | Multilevel degenerative disc disease Degeneration of intervertebral disc, site | | unspecified | + + | Respiratory crackles at right lung base | + + | Dysfunction of both eustachian tubes Dysfunction of Eustachian tube | + + | 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, left (HCC) | + + documented in this encounter
--- OUTSIDE RECORDS SUMMARY | ~2019-02-17 | XMS | Encounter Summary ---
Demographics + + + | Address | [address] | | | [place] [address] | + + + | Home Phone [...] Team Providers + +------+ + | Care Graphic Art Designer Name | Role | Phone | + +------+ + | Horacio Silvestre DO | PCP | | + +------+ + Reason for Visit + + + | Reason | Comments | + + + | Referral (Follow up) | FYI | + + + Encounter Details +--------+ + + + + | Date | Type | Department | Care Team | Description | +--------+ + + + + | 04/30/ | Telephone | [facility] | Faraz Tejada, | Referral (Follow up) | | 2017 | | [facility] | DNP [address] | () | | | | [facility] [address] | [place] [address] | | | | | [address] [place], | [phone] | | | | | [place] [address] | | | | | | [phone] | | | +--------+ + + + [...] [place] | | | | | | [address] | | | | | | [phone] | | | | | | | | +--------+---------+ + + + | 02/26/ | Office | Urology | Lillie Fowler | | | 2018 | Visit | | LILLIE Lopez [address] | | | | | | [address] | | | | | | [place], [place] | | | | | | [address] | | | | | | [phone] | | | | | | | | +--------+---------+ + + + | 03/16/ | Office | Neurology | Theresa, | | | 2018 | Visit | | SHONDA Mckinney [address] | | | | | | [address] [place], | | | | | | [place] [address] | | | | | | [phone] | | | | | | | | +--------+---------+ + + + | 04/12/ | Office | Primary Care | Massimo Ramos | | | 2019 | Visit | | MD Fer [address] | | | | | | [place] | | | | | | [address] | | | | | | | | +--------+---------+ + + + | 10/03/ | Office | Neurology | Fabián Carias MD | | | 2019 | Visit | | [address] | | | | | | [place] | | | | | | [address] | | | | | | | [...] | | | care | | | Hop Picker-C | | | | | [...] | | | care | | | Hop Picker-C | | | | | [...] | | | care | | | Hop Picker-C | | | | | [...] | | | care | | | Hop Picker-C | | | | | | | linical | + +--------+ +---+-----+ + + + | Note: Pt will | | check CBG's daily x1 | | Pt will take Lantis as | | prescribed | + + documented as of this encounter Visit Diagnoses Not on filedocumented in this encounter"
--- OUTSIDE RECORDS SUMMARY | ~2019-02-17 | XMS | Encounter Summary ---
Demographics + + + | Address | [address] | | | [place] [address] | + + + | Home Phone [...] Providers + +------+ + | Care Avionics Electronics Technician Name | Role | Phone | [...] + + + + | 04/28/ | Anesthesia | [facility] | Tadeo, | | | 2018 | Event | [facility] | Mateusz Espinal MD [address] | | | | | [address] | [address] | | | | | [place], [place] | [place] [address] | | | | | [address] | [phone] | | | | | [phone] | | | +--------+ + + + + Anesthesia Record + + + + + | Procedure Name | Responsible | Anesthesia Start | Anesthesia Stop Time | | | Anesthesiologist | Time | | + + + + + | CATARACT REMOVAL | Mateusz Espinal | 04/28/17 0923 | 04/28/17 1008 | | (Right Eye) | MD Tadeo | | | + + + + + +----+---+ + + | Da | T | Event | Comment | | te | i | | | | | m | | | | | e | | | +----+---+ + + | 01 | 0 | | | | /2 | 7 | | | | 2/ | 4 | | | | 20 | 7 | | | | 18 | | | | +----+---+ + + | | 0 | An Checkout | Pre-use anesthesia machine/equipment checkout. | | | 9 | | | | | 2 | | | | | 3 | | | +----+---+ + + | | 0 | An Start | Reassessment prior to anesthesia induction/procedure. | | | 9 | | | | | 2 | | | | | 3 | | | +----+---+ + + | | 0 | First | | | | 9 | Inc/Proc St | | | | 3 | | | | | 6 | | | +----+---+ + + | | 1 | an stop | | | | 0 | data | | | | 0 | | | | | 5 | | | +----+---+ + + | | 1 | An Stop | Patient handed off to recovery nurse. | | | 0 | | | | | 8 | | | +----+---+ + + +------+ | Meds | +------+ + +---------+ | Name | Total | + +---------+ | midazolam 1 mg/mL (2 mL vial) | 2 mg | + +---------+ | fentaNYL | 100 mcg | + +---------+ | lactated ringers (LR) infusion | 350 mL | + +---------+ + + | Name | + + | N2O Flow Rate (L/Min) | + + | O2 Flow Rate (L/Min) | + + | Insp O2 | + + | Exp N2O | + + | Exp SEV | + + | Exp ISO | + + | Exp JUDY | + + | Air Flow Rate (L/Min) | + + + + | No blood administrations on file. | + + +--------+ + + + | Type | Details | Placement | Removal | +--------+ + + + | Read | 04/28/17; 0950; Right; eye; | 04/28/17 0950 by | 06/30/18 1342 by | | only - | 06/30/18 (Completed/Removed by | Es Kathleen RN | User Epic | | | Utility); 1342 (Completed/Removed | | | | Incisi | by Utility) | | | | on | | | | +--------+ + + + documented in this encounter Social History + +-------+ +--------+ + | [...] [place] | | | | | | [address] | | | | | | [phone] | | | | | | | | +--------+---------+ + + + | 02/26/ | Office | Urology | Lillie Fowler | | | 2018 | Visit | | LILLIE Lopez [address] | | | | | | [address] | | | | | | [place] | | | | | | [address] | | | | | | [phone] | | | | | | | | +--------+---------+ + + + | 03/16/ | Office | Neurology | Theresa, | | | 2018 | Visit | | SHONDA Mckinney [address] | | | | [address] [place], | | | | | | [place] [address] | | | | | | [phone] | | | | | | | | +--------+---------+ + + + | 04/12/ | Office | Primary Care | Massimo Ramos | | | 2019 | Visit | | MD Fer [address] | | | | | | [place] | | | | | | [address] | | | | | | | | +--------+---------+ + + + | 10/03/ | Office | Neurology | Fabián Carias MD | | | 2020 | Visit | | [address] | | | | | | [place] | | | | | | [address] | | | | | | | [...] | | | care | | | Wastewater Process Engineer-C | | | | | | [...] | | | care | | | Wastewater Process Engineer-C | | | | | | [...] | | | care | | | Wastewater Process Engineer-C | | | | | | [...] | | | care | | | Wastewater Process Engineer-C | | | | | | [...] | | | + +--------+ +--------+------+------+ | fentaNYL (PF) injection | Given | 04/28/19 | 50 mcg | | | | Intravenous, PRN, Pain, Starting | | 18 9:37 | | | | | 04/28/17 at 0934, Anesthesia | | AM PST | | | | | Intra-op | | | | | | + +--------+ +--------+------+------+ +-------+ +--------+---+---+ | Given | 04/28/19 | 50 mcg | | | | | 18 9:34 | | | | | | AM PST | | | | +-------+ +--------+---+---+ +---+---+ | | | +---+---+ + +-------+ +------+---+---+ | midazolam (VERSED) 1 mg/mL | Given | 04/28/19 | 2 mg | | | | injection Intravenous, PRN, | | 18 9:25 | | | | | Anxiety, Starting 04/28/17 at | | AM PST | | | | | 0925, Anesthesia Intra-op | | | | | | + +-------+ +------+---+---+ +---+---+ | | | +---+---+ documented in this encounter"
--- OUTSIDE RECORDS SUMMARY | ~2019-02-17 | XMS | Encounter Summary ---
Demographics + + + | Address | [address] | | | [place] [address] | + + + | Home Phone [...] Team Providers + +------+ + | Care Tire Builder Name | Role | Phone | [...] [facility] | DO [address] | | | | | [facility] [address] | [place], [place] | | | | | [address] [place], | [address] | | | | | [place] [address] | [phone] | | | | | [phone] | | | +--------+ + + + [...] [place] | | | | | | [address] | | | | | | [phone] | | | | | | | | +--------+---------+ + + + | 02/26/ | Office | Urology | Lillie Fowler | | | 2018 | Visit | | LILLIE Lopez [address] | | | | | | [address] | | | | | | [place], [place] | | | | | | [address] | | | | | | [phone] | | | | | | | | +--------+---------+ + + + | 03/16/ | Office | Neurology | Theresa, | | | 2018 | Visit | | SHONDA Mckinney [address] | | | | | | [address] [place], | | | | | | [place] [address] | | | | | | [phone] | | | | | | | | +--------+---------+ + + + | 04/12/ | Office | Primary Care | Massimo Ramos | | | 2019 | Visit | | MD Fer [address] | | | | | | [place] | | | | | | [address] | | | | | | | | +--------+---------+ + + + | 10/03/ | Office | Neurology | Fabián Carias MD | | | 2019 | Visit | | [address] | | | | | | [place] | | | | | | [address] | | | | | | | [...] | | | care | | | Image Scientist-C | | | | | | [...] | | | care | | | Image Scientist-C | | | | | | [...] | | | care | | | Image Scientist-C | | | | | | [...] | | | care | | | Image Scientist-C | | | | | | | linical | + +--------+ +---+-----+ + + + | Note: Pt will | | check CBG's daily x1 | | Pt will take Lantis as | | prescribed | + + documented as of this encounter Visit Diagnoses Not on filedocumented in this encounter"
--- OUTSIDE RECORDS SUMMARY | ~2019-02-17 | XMS | Encounter Summary ---
Demographics + + + | Address | [address] | | | [place] [address] | + + + | Home Phone [...] Team Providers + +------+ + | Care Kitchen Steward/Stewardess Name | Role | Phone | + +------+ + | Ryan Gutiérrez MD | PCP | | + +------+ + Encounter Details +--------+ + + + + | Date | Type | Department | Care Team | Description | +--------+ + + + + | 09/12/ | Hospital | [facility] | [facility] De Olive[facility] | | | 2016 | Encounter | [facility] | DO [address] | | | | | [address] | [address] | | | | | [address] [place], | [facility], [place] | | | | | [place] [address] | [address] | | | | | [phone] | [phone] | | | | | | | [...] [place] | | | | | | [address] | | | | | | [phone] | | | | | | | | +--------+---------+ + + + | 02/26/ | Office | Urology | Lillie Fowler | | | 2018 | Visit | | [address]ILLIE [address] | | | | | | [address] | | | | | | [place] | | | | | | [address] | | | | | | [phone] | | | | | | | | +--------+---------+ + + + | 03/16/ | Office | Neurology | Theresa, | | | 2018 | Visit | | [address] | | | [address] [place], | | | | | | [place] [address] | | | | | | [phone] | | | | | | | | +--------+---------+ + + + | 04/12/ | Office | Primary Care | Massimo Ramos | | | 2019 | Visit | | MD Fer [address] | | | | | | [place] | | | | | | [address] | | | | | | | | +--------+---------+ + + + | 10/03/ | Office | Neurology | Fabián Carias MD | | | 2019 | Visit | | [address] | | | | | | [place] | | | | | | [address] | | | | | | | [...] | | | care | | | Dye [employer]ation Operator-C | | | | | | [...] | | | care | | | Dye Automation Operator-C | | | | | | [...] | | | care | | | Dye Automation Operator-C | | | | | | [...] | | | care | | | Dye Automation Operator-C | | | | | | | linical | + +--------+ +---+-----+ + + + | Note: Pt will | | check CBG's daily x1 | | Pt will take Lantis as | | prescribed | + + documented as of this encounter Visit Diagnoses Not on filedocumented in this encounter"
--- OUTSIDE RECORDS SUMMARY | ~2019-02-17 | XMS | Encounter Summary ---
Demographics + + + | Address | [address] | | | [place] [address] | + + + | Home Phone [...] Team Providers + +------+ + | Care Galley Boy Name | Role | Phone | + +------+ + | Korin Silvestre DO | PCP | | + +------+ + Reason for Visit + + + | Reason | Comments | + + + | Altered Mental | | | Status | | + + + | Weakness | [...] | | | | | | | Hypoxemia | | | | | | | | | | | | | | Hypomagnesem | | | | | | | ia Delirium | | | | | | | Acute | | | | | | | exacerbation | | | | | | | of chronic | | | | | | | obstructive | | | | | | | pulmonary | | | | | | | disease | | | | | | | (COPD) (HCC) | | | | | | | Fever, | | | | | | | unspecified | | | | | | | fever cause | | | | | | | Urinary | | | | | | | tract | | | | | | | infection | | | | | | | with | | | | | | | hematuria, | | | | | | | site | | | | | | | [...] | +--------+ + + + + | 10/02/ | Hospital | [facility] | Juan Williamson | Delirium (Primary | | 2019 - | Encounter | HOSPITAL MED SURG | MD [address] | Dx); Fever, | | | | [address] [place] | [facility] | unspecified fever | | 10/06/ | | [place], [place] | [place] [address] | cause; Hypoxemia; | | 2019 | | [address] | [phone] | Acute exacerbation | | | | [phone] | | of chronic | | | | | Kim Mary, | obstructive | | | | | [address] | pulmonary disease | | | | | [place] [address] | (COPD) ([facility]); | | | | | [phone] | Pneumonia due to | | | | | | infectious organism, | | | | | Esteban Calvillo, | unspecified | | | | | MD [address] | laterality, | | | | | [place] [address] | unspecified part of | | | | | [phone] | lung; Urinary tract | | | | | | infection with | | | | | Orr, Luciano, MD [address] | hematuria, site | | | | | [address] | unspecified; | | | | | [place] | Hypomagnesemia; | | | | | [phone] | Dehydration; | | | | | [phone] | Metabolic | | | | | | encephalopathy | +--------+ + + + + Social [...] + + + | Blood Pressure | 143/85 | 10/06/2018 7:29 AM | | | | | PDT | | + + + + + | Pulse | 77 | 10/06/2018 12:41 PM | | | | | PDT | | + + + + + | Temperature | 36.7 C (98.1 F) | 10/06/2018 7:29 AM | | | | | PDT | | + + + + + | Respiratory Rate | 20 | 10/06/2018 7:29 AM | | | | | PDT | | + + + + + | Oxygen Saturation | 93% | 10/06/2018 12:41 PM | | | | | PDT | | + + + + + | Inhaled Oxygen | - | - | | | Concentration | | | | + + + + + | Weight | 96.4 kg (212 lb 8.4 | 10/02/2018 11:42 PM | | | | oz) | PDT | | + + + + + | Height | 167.6 cm (5' 5.98") | 10/02/2018 11:20 PM | | | | | PDT | | + + + + + | Body Mass Index | 34.32 | 10/02/2018 11:20 PM | | | | | PDT [...] documented as of this encounter Discharge Summaries Luciano Orr MD - 10/12/2018 7:15 AM PDTFormatting of this note might be different from alessandro regalado. MEDICAL HOSPITALIST DISCHARGE SUMMARY Pt. Name/Age/: Geraldo Durbin Mcfadden 78 y.o. 1940 Date of Admission: 10/02/2018 Date of Discharge: 10/06/18 PCP: Korin Silvestre Admitting Diagnosis: Metabolic encephalopathy Discharge Diagnosis: Principal Problem (Resolved): Metabolic encephalopathy Active Problems: Type 2 diabetes mellitus with diabetic polyneuropathy, with long-term current use of insu gely Community acquired pneumonia of left lower lobe of lung 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 behavioral disturbance Acute cystitis without hematuria Mediastinal lymphadenopathy Additional discharge history/co-morbidities: Active Ambulatory Problems Diagnosis [...] nonseasonal allergic rhinitis due to pollen 03/07/2017 [facility] current use of aspirin 03/07/2017 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, left Current use of beta marly 06/30/2017 Panlobular emphysema 08/08/2017 Atherosclerosis of [place] coronary artery of [place] heart without angina pectoris 08/08 On potassium wasting diuretic therapy 08/08/2017 Community acquired pneumonia of left lower lobe of lung 08/15/2017 Primary osteoarthritis involving multiple joints 09/30/2017 Vitamin D deficiency disease 09/30/2017 History of bacterial pneumonia 03/16/2018 Insomnia secondary to chronic pain 04/08/2018 Hx of transient ischemic attack (TIA) 04/10/2018 Coordination of complex care 06/01/2018 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 behavioral 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 09/01/2018 Resolved Ambulatory Problems Diagnosis Date Noted Essential hypertension 03/07/2017 intermission coordinator current use of opiate analgesic 06/27/2017 Neck pain, chronic 12/15/2017 Chronic bilateral low back pain without sciatica 12/15/2017 Generalized weakness 01/09/2018 Dehydration 01/09/2018 Chronic bilateral low back pain without sciatica 02/19/2018 Hypoxia 03/16/2018 Neutrophilic leukocytosis 03/17/2018 intermission coordinator current use of non-steroidal anti-inflammatories (NSAID) 04/08/2018 [...] nonketotic hyperglycemia 08/23 Chronic pain syndrome 09/01/2018 Past Medical History: Diagnosis Date Carpal tunnel syndrome, bilateral 05/31/2013 DDD (degenerative disc disease), cervical 05/22/2013 Diabetes mellitus GERD (gastroesophageal reflux disease) Gout Hiatal hernia Hypertension Melanoma Melanoma 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, left Neck pain, chronic 05/22/2013 Neuropathy Paresthesias - both hands 05/22/2013 Thyroid disease Medications Reconciled upon Discharge are: Discharge Medications New Medications Details cefUROXime 500 MG tablet Take 1 tablet by mouth 2 times daily. Indications: Community Acquired Pneumonia aka: CEFTIN predniSONE 10 mg tablet Take 3 tablets by mouth Daily. 3 tablets for 1 day 2 tablets for 1 day and 1 tablet for 1 day and then discontinue prednisone aka: DELTASONE Unchanged Medications Details amLODIPine 10 MG tablet [...] under the skin nightly. aka: LANTUS levothyroxine 75 MCG tablet Take 75 mcg by mouth every morning (before breakfast). aka: SYNTHROID losartan 50 mg tablet Take 50 mg by mouth every morning. aka: COZAAR naproxen 500 mg tablet Take 500 mg by mouth 2 times daily (with breakfast & dinner). aka: NAPROSYN omeprazole 20 mg capsule Take 20 mg by mouth every morning (before breakfast). aka: priLOSEC pregabalin 300 MG capsule Take 300 mg [...] for Dry Skin. aka: CARMOL Clinical Resume: Patient is an 78-year-old man who was admitted with generalized weakness and fever and admi tting diagnosis of metabolic encephalopathy. Patient had a significant change in mentation over the past couple of weeks was felt to be from medication side effects. Is also noted to have bibasilar pneumonia with bacteremia and was started on ceftriaxone and was transitione d to oral antibiotics before discharge. He also was treated with steroids which were weaned . There is also mediastinal and hilar adenopathy which may be related to a malignancy. The patient was scheduled to see Dr. Franklin as an outpatient for further evaluation also for left lower lung nodules This was to be further evaluated as an outpatient. His metabolic encephalopathy resolved with treatment of his pneumonia but does have a baseline dementia. Patient's diabetes was controlled and was improving as he came off the steroids. Patient is discharged home with his son is to follow-up with his regular physician and Dr. Franklin. He was given a tapering dose of prednisone for the next 4 days. And he was discharged with cefuroxime 500 mg twice a day to finish treatment for his community-acquired pneumonia. Physical Examination: General: Alert and oriented in no acute distress HEENT: No pallor icterus Cardiovascular: Regular rate and rhythm Respiratory: Rhonchi at base left side Abdomen: Nontender Extremities: Edema bilaterally Skin: Clear Neurological: Motor and sensory intact Psychiatric: Alert with normal affect Significant tests and procedures during admission: [...] Alba Electronically Signed by: Massimo Alba on 9 10:32 PM Xr Chest Ap Portable Result Date: 09/30/2018 [...] Dictated by: [address] Angiogram Pulmonary Result Date: 09/30/2018 EXAMINATION: [...] Hilar lymphad enopathy. Dictated by: Massimo Alba Recommended follow up labs/imaging/tests: Pending inpatient studies at time of discharge: None Disposition: Home Follow-Up Plans: Arnaud Franklin MD [address] [place] [address] Franklin as scheduled. Dr Davy Bhatti 10/15/18 12:45 check in time Korin Lojaannie, DO [address] [place] [address] Korin Messerantonio, DO [address] [place] [address] In 1 week Electronically signed by: Luciano Orr 10/12/2018 7:18 [facility] Time spent discharging this patient: Greater than 30 minutes documented in this encounter Discharge Instructions AttachmentsThe following attachments cannot be sent through Care Everywhere.Fall Prevention ([place]osotho)Falls, Preventing, Are You At Risk of Falling? ([place]o)Adult, Pneumonia ([place]) Bladder Infection, Male (Adult) ([place]osotho)documented in this encounter Medications at Time [...] + + + +---------+ + + | cefUROXime | Take 1 tablet by | 6 | 0 | 10/07/19 | | | (CEFTIN) 500 MG | mouth 2 times daily. | tablet | | 19 | 9 | | tabletIndications: | Indications: | | | | | | Community Acquired | Community Acquired | | | | | | Pneumonia | Pneumonia | | | | | + + [...] +---------+ + + | levothyroxine | Take 225 mcg by | | 0 | | | | (SYNTHROID) 75 MCG | mouth every morning | | | | 9 | | tablet | (before breakfast). | | | | | | | Patient takes 3 | | | | | | | -75mcg tabs daily | | | | | | | for total dose of | | | | | | | 225mcg | | | | | + + [...] | | 9 | | capsule | (before breakfast). | | | | | + + + +---------+ + + | predniSONE | Take 3 tablets by | 6 | 0 | 10/08/19 | | | (DELTASONE) 10 mg | mouth Daily. 3 | tablet | | 19 | 9 | | tablet | tablets for 1 day 2 | | | | | | | tablets for 1 day | | | | | | | and 1 tablet for 1 | | | | | | | day and then | | | | | | | discontinue | | | | | | | prednisone | | | | | + + [...] of this encounter Progress Notes Scott Caballero, Printed Products Assembler - 10/06/2018 4:08 PM PDT PHARMACY SERVICES: DISCHARGE MEDICATION TEACHING Geraldo Mcfadden is a 78 y.o. male admitted on 10/02/18 for metabolic encephalopathy and w as discharged on 10/06/18. Discharge Medications New Medications Details cefUROXime 500 MG tablet Take 1 tablet by mouth 2 times daily. Indications: Community Acquired Pneumonia aka: CEFTIN predniSONE 10 mg tablet Take 3 tablets by mouth Daily. 3 tablets for 1 day 2 tablets for 1 day and 1 tablet for 1 day and then discontinue prednisone aka: DELTASONE Start: 10/07/2018 Unchanged Medications Details amLODIPine 10 MG tablet [...] under the skin nightly. aka: LANTUS levothyroxine 75 MCG tablet Take 75 mcg by mouth every morning (before breakfast). aka: SYNTHROID losartan 50 mg tablet Take 50 mg by mouth every morning. aka: COZAAR naproxen 500 mg tablet Take 500 mg by mouth 2 times daily (with breakfast & dinner). aka: NAPROSYN omeprazole 20 mg capsule Take 20 mg by mouth every morning (before breakfast). aka: priLOSEC pregabalin 300 MG capsule Take 300 mg [...] Daily as needed for Dry Skin. aka: JOSIE Ward was counseled on the above new medications, including dosing, administration, and the f ollowing potential adverse effects: -Cefuroxime: May cause N/V or upset stomach--recommend taking with food to minimize -Prednisone: may cause changes in mood, energy, and appetite. Recommend taking early in the morning to prevent potential insomnia. Next dose is tomorrow (10/07) with 3 tabs, then 2 tabs the next day, and 1 tab the next day which mckenzie the end of the prednisone administration Patient confirmed understanding and stated no additional questions at this time. Electronically signed by: Scott Caballero, Printed Products Assembler 10/06/2018 16:08Electronically sign ed by Cynthia Mendes, PharmD at 10/06/2018 5:34 PM Esteban Mccormick MD - 10/05/2018 11:57 AM PDT MEDICAL HOSPITALIST TEAM PROGRESS NOTE Name:Geraldo Mcfadden Hospital Day # 3 Reason for admission and continued stay: Geraldo Mcfadden is a 78 y.o. male hospitalized for Metabolic encephalopathy Assessment and Plan: Active Problems: Community acquired pneumonia of left lower lobe of lung Type 2 diabetes mellitus with diabetic polyneuropathy, with long-term current use of insu gely 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 behavioral disturbance Acute cystitis without hematuria Mediastinal lymphadenopathy #1 community-acquired pneumonia. Continued steady improvement. Transition to oral antibio tics today. Continue weaning steroids. Mobilize as tolerated. #2 metabolic encephalopathy. Resolved. #2.1 underlying dementia. Stable. #3 type II diabetes mellitus. CBG control improved. Expect continued improvement as stero ids are weaned off. #4 left lower lung nodules. Discussed with Dr. Franklin who is happy to see the patient i n his office and will pursue further workup at that time. #5 anticipated days until discharge and disposition: Likely home tomorrow. Subjective/ROS: Feeling better. Breathing has improved significantly. Occasional cough which is productiv e of scant amounts of sputum. No chest pain or palpitations. No fevers or chills. No nausea, vomiting or diarrhea. Eating well. More steady on his feet today. Objective: Most recent vital signs: BP 143/83 | Pulse 72 | Temp 36.6 C (97.88 F) (Oral) | Resp 16 | Ht 1.676 m (5' 5.98 ") | Wt 96.4 kg (212 lb 8.4 oz) | SpO2 90% | BMI 34.32 kg/m Vital sign ranges for last 24hrs: Input and output for last 24hrs: Temp: [36.4 C (97.5 F)-36.8 C (98.24 F)] 36.6 C (97.88 F) Pulse: [63-94] 72 Resp: [16-20] 16 BP: (141-161)/(76-92) 143/83 SpO2 Av.4 % Min: 90 % Max: 96 % Flow (L/min) Av.5 Min: 1.5 Max: 1.5 10/03 1900 - 10/05 0700 In: 4182 [P.O.:2307; I.V.:1525] Out: 600 [Urine:600] Physical Examination: General: Alert and oriented 3. Cardiovascular: Regular rate and rhythm. Respiratory: Coarse inspiratory crackles at the left base that improved with cough. Other choi clear to auscultation bilaterally. Abdomen: Benign. Extremities: Edema unchanged. Skin: No new skin rashes or lesions appreciated. Neurological: Spontaneously moving all 4 extremities. Psychiatric: Normal mood, engaging affect. Physical Exam Last 8 glucose values: Recent Labs Lab 10/05/18 1113 10/05/18 0736 10/05/18 0510/04/18202810/04/18 1637 10/04/18 1135 10/04/18 0739 10/04/18 0610 10/03/18202110/03/18 1642 10/03/18 0630 10/02/18 17309/30/18 1443 POCGLU 204* 77 -- 334* 347* 283* 231* -- 336* 318* < > -- < > -- < > -- GLU -- -- 88 -- -- -- -- 241* -- -- -- 379* -- 314* -- 161* < > = values in this interval not displayed. Labs/Studies: Recent Labs Lab 10/05/1852410/04/1860910/03/1862910/02/18 173 WBC 16.2* 16.4* 11.0* 14.8* HGB 10.5* 10.3* 10.6* 12.0* HCT 32.7* 32.1* 32.8* 37.4* PLT 134* 122* 92* 99* Recent Labs Lab 10/05/1852410/04/1860910/03/1862910/02/18 1735 09/30/18 1443 NA 141 141 140 136 138 K 3.5 4.2 4.4 4.1 3.8 CL 107 108 106 102 103 CO2 28 24 24 26 26 BUN 21 26 21 17 15 CREA 0.91 1.05 1.20 1.40 1.20 GLU 88 241* 379* 314* 161* MG -- 2.0 -- 1.4* -- CALCIUM 8.6 8.3 8.1* 8.8 8.9 BILITOT -- -- -- 1.4* 1.1 AST -- -- -- 21 22 ALT -- -- -- 20 21 ALKPHOS -- -- -- 130* 104 ALBUMIN -- -- -- 2.9* 3.2 Electronically signed by: Esteban Calvillo 10/05/2018 11:[address] [facility] Portions of this chart may have been created with voice recognition software. Occasional wo rd or "sound-alike" substitutions may have occurred due to the inherent limitation of voice recognition software. Read the chart carefully and recognize, using context, where these sub stitutions have occurred. Esteban Mccormick MD - 10/04/2018 2:38 PM PDT MEDICAL HOSPITALIST TEAM PROGRESS NOTE Name:Geraldo Mcfadden Hospital Day # 2 Reason for admission and continued stay: Geraldo Mcfadden is a 78 y.o. male hospitalized for Metabolic encephalopathy Assessment and Plan: Active Problems: Community acquired pneumonia of left lower lobe of lung Type 2 diabetes mellitus with diabetic polyneuropathy, with long-term current use of insu gely 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 behavioral disturbance Acute cystitis without hematuria Mediastinal lymphadenopathy #1 committee acquired pneumonia. Slow but steady improvement. Continue broad-spectrum ant ibiotics and aggressive pulmonary toilet. Begin to wean steroids. #2 metabolic encephalopathy. Due to acute infection. Exacerbated by underlying dementia. Resolved. He is at his baseline mental status choi. #3 type II diabetes mellitus. Suboptimal control. Increase Lantus dose. Expect this will improve as steroids are weaned. #4 left lower lung nodules. I will discussed with Dr. Franklin tomorrow and schedule jaspreet ent for an outpatient visit with the oncologist. #5 bacturia. Urine culture growing normal jonah. #6 ground-level fall. He did hit his head. No loss of consciousness. I counseled the pat ient on the need to call for assistance anytime he is moving. Patient exhibits good underst anding and agrees with the plan. Check neuro exam and vitals every 2 hours for 8 hours. #7 anticipated days until discharge and disposition: Likely home in 1-2 days. Subjective/ROS: Fell in the bathroom after standing up from the toilet and tripping over the step into the shower. He fell backwards into the shower wall. He did hit the back of his head. He denie d loss of consciousness. He fell because he tripped. He did not develop any lightheadednes s or dizziness that led to the fall. Breathing has improved somewhat today. Cough remains nonproductive. No chest pain or palpitations. No fevers or chills. No nausea, vomiting or diarrhea. Eating well. Objective: Most recent vital signs: BP 147/76 | Pulse 94 | Temp 36.5 C (97.7 F) (Oral) | Resp 18 | Ht 1.676 m (5' 5.98" ) | Wt 96.4 kg (212 lb 8.4 oz) | SpO2 90% | BMI 34.32 kg/m Vital sign ranges for last 24hrs: Input and output for last 24hrs: Temp: [36.4 C (97.5 F)-36.7 C (98.06 F)] 36.5 C (97.7 F) Pulse: [67-94] 94 Resp: [18-20] 18 BP: (109-149)/(69-87) 147/76 SpO2 Av.1 % Min: 86 % Max: 95 % Flow (L/min) Av.5 Min: 1.5 Max: 1.5 10/02 1900 - 10/04 0700 In: 7063 [P.O.:2260; I.V.:3453] Out: 2049 [Urine:2049] Physical Examination: General: Alert. Oriented to person place and time. HEENT: Normocephalic, atraumatic. No abrasions or contusions or bruises noted on his head . Oropharynx is clear Cardiovascular: Regular rate and rhythm. Respiratory: Normal respiratory effort. Improved air movement today. No wheezing appreci ated. Abdomen: Bowel sounds are auscultated. Abdomen was soft, nondistended and nontender. Extremities: Trace edema at ankles. Neurological: Spontaneously moving all 4 extremities. Psychiatric: Normal mood, engaging affect. Physical Exam Last 8 glucose values: Recent Labs Lab 10/04/18 1135 10/04/18 0739 10/04/18 0610 10/03/18 2022 10/03/18 1642 10/03/18 1131 10/03/18 0751 10/03/18 0630 10/02/18 2255 10/02/18 17310/02/18 1730 09/30/18 1443 POCGLU 283* 231* -- 336* 318* 357* 310* -- 343* -- 308* -- GLU -- -- 241* -- -- -- -- 379* -- 314* -- 161* Labs/Studies: Recent Labs Lab 10/04/18 0610 10/03/18 0630 10/02/18 1735 09/30/18 1443 WBC 16.4* 11.0* 14.8* 12.3* HGB 10.3* 10.6* 12.0* 11.8* HCT 32.1* 32.8* 37.4* 37.2* PLT 122* 92* 99* 95* Recent Labs Lab 10/04/18 0610 10/03/18 0630 10/02/18 17309/30/18 1443 NA 141 140 136 138 K 4.2 4.4 4.1 3.8 CL 108 106 102 103 CO2 24 24 26 26 BUN 26 21 17 15 CREA 1.05 1.20 1.40 1.20 GLU 241* 379* 314* 161* MG 2.0 -- 1.4* -- CALCIUM 8.3 8.1* 8.8 8.9 BILITOT -- -- 1.4* 1.1 AST -- -- 21 22 ALT -- -- 20 21 ALKPHOS -- -- 130* 104 ALBUMIN -- -- 2.9* 3.2 Pertinent micro results: Culture, Urine Order: [id number] - Reflex for Order [id number] Status: Final result Visible to patient: No (Not Released) Next appt: 10/26/2018 at 13:00 in Primary Care ([facility]arz Te[facility]ada, [place]) Specimen Information: Urine, Clean Catch Culture Result 30,000 - 40,000 CFU/ml Mixed jonah (multiple morphologies present) Suggests contamination with urogenital or skin jonah. Resulting Agency: [facility] Specimen Collected: 09/30/18 16:22 Last Resulted: 10/02/18 Electronically signed by: Esteban Calvillo 10/04/2018 14:[address] [facility] Portions of this chart may have been created with voice recognition software. Occasional wo rd or "sound-alike" substitutions may have occurred due to the inherent limitation of voice recognition software. Read the chart carefully and recognize, using context, where these sub stitutions have occurred. Esteban Mccormick MD - 10/03/2018 12:45 PM PDT MEDICAL HOSPITALIST TEAM PROGRESS NOTE Name:Geraldo Mcfadden Hospital Day # 1 Reason for admission and continued stay: Geraldo Mcfadden is a 78 y.o. male hospitalized for Metabolic encephalopathy Assessment and Plan: Principal Problem: Metabolic encephalopathy Active Problems: Community acquired pneumonia of left lower lobe of lung Type 2 diabetes mellitus with diabetic polyneuropathy, with long-term current use of insu gely 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 behavioral disturbance Acute cystitis without hematuria Mediastinal lymphadenopathy #1 community acquired pneumonia involving the left lower lung. He does have nodules in stephanie t region raising the possibility of a postobstructive pneumonia. The patient also has wheezing likely secondary to bronchospasm. Start steroids today. Continue broad-spectrum antibiotics, aggressive nebulizer regimen, and flutter valve therap y. Encourage deep breathing and cough. Mobilize as tolerated. #2 metabolic encephalopathy. Significantly improved. I did auto travel counselor the family on the waxi ng and waning course of encephalopathy in most cases. They exhibit good understanding. Continue treating the underlying cause. #3 left lower lobe lung nodules. Lymphadenopathy. I did discuss with the patient and his family the need for aggressive workup in the very near future. Plan will be to establish an appointment with Dr. Franklin (oncology). We will make that appointment before the patien jermaine is discharged from the hospital. #4 bacturia. Urine culture pending. Patient is already on ceftriaxone. Follow. #5 type II diabetes mellitus. Uncontrolled. Give 1 extra dose Lantus this morning. Brenda janellee sliding scale insulin. Resume his usual Lantus regimen this evening. The patient did r eceive a large dose of Solu-Medrol yesterday evening and will be started on prednisone today . This is likely contributing to his current hyperglycemia. #6 anticipated days until discharge and disposition: Likely home in 2-3 days. Subjective/ROS: Feeling much better this morning No longer hallucinating. Answers questions appropriately. and son are at bedside. They report that his thinking is very close to his baseline c urrently. Complains of cough. Minimally productive. Denies chest pain or palpitations. No fevers or chills. No nausea vomiting or diarrhea. Appetite has been poor of late. Objective: Most recent vital signs: BP 122/66 | Pulse 80 | Temp 36.5 C (97.7 F) (Oral) | Resp 20 | Ht 1.676 m (5' 5.98" ) | Wt 96.4 kg (212 lb 8.4 oz) | SpO2 92% | BMI 34.32 kg/m Vital sign ranges for last 24hrs: Input and output for last 24hrs: Temp: [36.3 C (97.34 F)-38 C (100.4 F)] 36.5 C (97.7 F) Pulse: [80-114] 80 Resp: [19-32] 20 BP: (101-131)/(49-94) 122/66 SpO2 Av.6 % Min: 83 % Max: 98 % Flow (L/min) Av.7 Min: 2 Max: 4 10/01 1901 - 10/03 0700 In: 2863 [P.O.:500; I.V.:1013] Out: 400 [Urine:400] Physical Examination: General: Alert. Oriented to person place and time currently. Cardiovascular: Regular rate and rhythm. Respiratory: Coarse inspiratory crackles at the left base. Scattered expiratory wheezes. Abdomen: Benign. Extremities: Trace edema at ankles. Neurological: Spontaneously moving all 4 extremities. Psychiatric: Normal mood, engaging affect. Physical Exam Last 8 glucose values: Recent Labs Lab 10/03/18 1131 10/03/18 0751 10/03/18 0630 10/02/18 2255 10/02/18 1735 10/02/18 1730 09/30/18 1443 POCGLU 357* 310* -- 343* -- 308* -- GLU -- -- 379* -- 314* -- 161* Labs/Studies: Recent Labs Lab 10/03/18 0630 10/02/18 1735 09/30/18 1443 WBC 11.0* 14.8* 12.3* HGB 10.6* 12.0* 11.8* HCT 32.8* 37.4* 37.2* PLT 92* 99* 95* Recent Labs Lab 10/03/1830 10/02/18 1735 09/30/18 1443 NA 140 136 138 K 4.4 4.1 3.8 CL 106 102 103 CO2 24 26 26 BUN 21 17 15 CREA 1.20 1.40 1.20 GLU 379* 314* 161* MG -- 1.4* -- CALCIUM 8.1* 8.8 8.9 BILITOT -- 1.4* 1.1 AST -- 21 22 ALT -- 20 21 ALKPHOS -- 130* 104 ALBUMIN -- 2.9* 3.2 Ct Head Wo Contrast Result Date: 10/02/2018 [...] Signed by: Massimo Alba on 10:32 PM Xr Chest 2 Vws Result Date: 10/02/2018 [...] Hilar lymphad enopathy. Dictated by: Massimo Alba Electronically signed by: Esteban Calvillo 10/03/2018 12:[address] [facility] Portions of this chart may have been created with voice recognition software. Occasional wo rd or "sound-alike" substitutions may have occurred due to the inherent limitation of voice recognition software. Read the chart carefully and recognize, using context, where these sub stitutions have occurred. Cedric Ibarra , Printed Products Assembler - 10/03/2018 9:01 AM PDTPHARMACY SERVICES: ADMISSION MEDICATION REVIEW Geraldo Mcfadden is a 78 y.o. male admitted on 10/01/2018. Patient is a reliable historian. Location of Patient when reviewed: [] ED [x] Medical Floor Patient s prior to admit medication and over the counter (OTC) medications/herbal supplem ents list obtained from: [x] Verbal interview [x] Patient ABLE to recall name, strength, and directions [x] Outside Information According to Ed he is no longer using the loperamide. Additionally Ed says that he is usi ng the Lantus in the evening. When asked about the finasteride Ed and his were confuse d about this medication and didn't think he was on this medication. I am currently awaiting for Sudhir LACKEY to fax over recent medication list. Patient states that he had his morning medication yesterday before arrival which includes: amlodipine, aspirin, atorvastatin, cholecalciferol, clopidogrel, cyanocobalamin, duloxetine, furosemide, HCTZ, levothyroxine, losartan, and omeprazole. Patient states that he did not having the evening medications which includes: insulin glarg ine (Lantus), naproxen, testosterone, tamsulosin, and pregabalin. Carline talked to me this morning about re-timing the Lantus dose to later this evening (wh en patient typically uses this medication) and using sliding scale for blood glucose this mo rning. His blood glucose was high due to not having Lantus since evening. Medication review performed and electronically signed by Cedric Chiu, Printed Products Assembler 10/03/2018 9:01 Associated attestation - Isadora Calvillo, PharmD - 10/05/2018 8:47 AM PDTI agree with Cedric Chiu's findings as documented in the note below with the following changes: --Pt is no longer taking finasteride (removed) --Pt should be taking colchicine, but has run out (added as not taking) --furosemide was confirmed as pt is taking (newly ordered by Dr. Silvestre 09/24/18) documented in this encounter Plan of Treatment [...] [place] | | | | | | [address] | | | | | | [phone] | | | | | | | | +--------+---------+ + + + | 02/26/ | Office | Urology | Lillie Fowler | | | 2018 | Visit | | LILLIE Lopez [address] | | [address] | | | | | | [place], [place] | | | | | | [address] | | | | | | [phone] | | | | | | | | +--------+---------+ + + + | 03/16/ | Office | Neurology | Theresa, | | | 2018 | Visit | | SHONDA Mckinney [address] | | | [address] [place], | | | | | | [place] [address] | | | | | | [phone] | | | | | | | | +--------+---------+ + + + | 04/12/ | Office | Primary Care | Richard Massimo Hsi | | | 2019 | Visit | | MD Fer [address] | | | | | | [place] | | | | | | [address] | | | | | | | | +--------+---------+ + + + | 10/03/ | Office | Neurology | Fabián Carias MD | | | 2019 | Visit | | [address] | | | | | | [place] | | | | | | [address] | | | | | | | | +--------+---------+ + + + + +------+--------+ + + | Name | Type | Priori | Associated Diagnoses | Date/Time | | | | ty | | | + +------+--------+ + + | ED INFORMATION | BRIT | Routin | | 10/02/2018 5:22 PM | | EXCHANGE | | e [...] | | | care | | | Cath Lab Technologist-C | | | | | | [...] | | | care | | | Cath Lab Technologist-C | | | | | | [...] | | | care | | | Cath Lab Technologist-C | | | | | | [...] | | | care | | | Cath Lab Technologist-C | | | | | | [...] + | POC GLUCOSE | Routin | 10/06/2018 | | Results for this | | | e | 11:26 AM | | procedure are in the | | | | PDT | | results section. | + +--------+ + + + | POC GLUCOSE | Routin | 10/06/2018 | | Results for this | | | e | 7:22 AM | | procedure are in the | | | | PDT | | results section. | + +--------+ + + + | ECG - EXTERNAL SCAN | | 10/06/2018 | | Results for this | | | | 12:00 AM | | procedure are in the | | | | PDT | | results section. | + +--------+ + + + | POC GLUCOSE | Routin | 10/05/2018 | | Results for this | | | e | 8:24 PM | | procedure are in the | | | | PDT | | results section. | + +--------+ + + + | POC GLUCOSE | Routin | 10/05/2018 | | Results for this | | | e | 4:38 PM | | procedure are in the | | | | PDT | | results section. | + +--------+ + + + | POC GLUCOSE | Routin | 10/05/2018 | | Results for this | | | e | 11:13 AM | | procedure are in the | | | | PDT | | results section. | + +--------+ + + + | POC GLUCOSE | Routin | 10/05/2018 | | Results for this | | | e | 7:36 AM | | procedure are in the | | | | PDT | | results section. | + +--------+ + + + | DIFFERENTIAL, MANUAL | Routin | 10/05/2018 | | Results for this | | | e | 5:25 AM | | procedure are in the | | | | PDT | | results section. | + +--------+ + + + | CBC WITH | Routin | 10/05/2018 | | Results for this | | DIFFERENTIAL | e | 5:25 AM | | procedure are in the | | | | PDT | | results section. | + +--------+ + + + | BASIC METABOLIC | Routin | 10/05/2018 | | Results for this | | PANEL | e | 5:25 AM | | procedure are in the | | | | PDT | | results section. | + +--------+ + + + | POC GLUCOSE | Routin | 10/04/2018 | | Results for this | | | e | 8:29 PM | | procedure are in the | | | | PDT | | results section. | + +--------+ + + + | POC GLUCOSE | Routin | 10/04/2018 | | Results for this | | | e | 4:37 PM | | procedure are in the | | | | PDT | | results section. | + +--------+ + + + | POC GLUCOSE | Routin | 10/04/2018 | | Results for this | | | e | 11:35 AM | | procedure are in the | | | | PDT | | results section. | + +--------+ + + + | POC GLUCOSE | Routin | 10/04/2018 | | Results for this | | | e | 7:39 AM | | procedure are in the | | | | PDT | | results section. | + +--------+ + + + | DIFFERENTIAL, MANUAL | Routin | 10/04/2018 | | Results for this | | | e | 6:10 AM | | procedure are in the | | | | PDT | | results section. | + +--------+ + + + | CBC WITH | Routin | 10/04/2018 | | Results for this | | DIFFERENTIAL | e | 6:10 AM | | procedure are in the | | | | PDT | | results section. | + +--------+ + + + | MAGNESIUM | Routin | 10/04/2018 | | Results for this | | | e | 6:10 AM | | procedure are in the | | | | PDT | | results section. | + +--------+ + + + | BASIC METABOLIC | Routin | 10/04/2018 | | Results for this | | PANEL | e | 6:10 AM | | procedure are in the | | | | PDT | | results section. | + +--------+ + + + | POC GLUCOSE | Routin | 10/03/2018 | | Results for this | | | e | 8:22 PM | | procedure are in the | | | | PDT | | results section. | + +--------+ + + + | POC GLUCOSE | Routin | 10/03/2018 | | Results for this | | | e | 4:42 PM | | procedure are in the | | | | PDT | | results section. | + +--------+ + + + | POC GLUCOSE | Routin | 10/03/2018 | | Results for this | | | e | 11:31 AM | | procedure are in the | | | | PDT | | results section. | + +--------+ + + + | POC GLUCOSE | Routin | 10/03/2018 | | Results for this | | | e | 7:51 AM | | procedure are in the | | | | PDT | | results section. | + +--------+ + + + | DIFFERENTIAL, MANUAL | Routin | 10/03/2018 | | Results for this | | | e | 6:30 AM | | procedure are in the | | | | PDT | | results section. | + +--------+ + + + | CBC WITH | Routin | 10/03/2018 | | Results for this | | DIFFERENTIAL | e | 6:30 AM | | procedure are in the | | | | PDT | | results section. | + +--------+ + + + | LACTIC ACID | Routin | 10/03/2018 | | Results for this | | | e | 6:30 AM | | procedure are in the | | | | PDT | | results section. | + +--------+ + + + | BASIC METABOLIC | Routin | 10/03/2018 | | Results for this | | PANEL | e | 6:30 AM | | procedure are in the | | | | PDT | | results section. | + +--------+ + + + | POC GLUCOSE | Routin | 10/02/2018 | | Results for this | | | e | 10:55 PM | | procedure are in the | | | | PDT | | results section. | + +--------+ + + + | XR CHEST 2 VIEWS | STAT | 10/02/2018 | | Results for this | | | | 8:16 PM | | procedure are in the | | | | PDT | | results section. | + +--------+ + + + | INFLUENZA A AND B | STAT | 10/02/2018 | | Results for this | | [place] | | 7:36 PM | | procedure are in the | | | | PDT | | results section. | + +--------+ + + + | CT HEAD WO CONTRAST | STAT | 10/02/2018 | | Results for this | | | | 7:20 PM | | procedure are in the | | | | PDT | | results section. | + +--------+ + + + | ECG 12 LEAD | STAT | 10/02/2018 | | Results for this | | | | 6:16 PM | | procedure are in the | | | | PDT | | results section. | + +--------+ + + + | TROPONIN I | Routin | 10/02/2018 | | Results for this | | | e | 6:04 PM | | procedure are in the | | | | PDT | | results section. | + +--------+ + + + | CULTURE, BLOOD | STAT | 10/02/2018 | | Results for this | | | | 6:03 PM | | procedure are in the | | | | PDT | | results section. | + +--------+ + + + | URINALYSIS WITH | STAT | 10/02/2018 | | Results for this | | MICROSCOPIC | | 5:54 PM | | procedure are in the | | | | PDT | | results section. | + +--------+ + + + | OXYGEN THERAPY | STAT | 10/02/2018 | | | | | | 5:48 PM | | | | | | PDT | | | + +--------+ + + + | SLIDE REVIEW, | Routin | 10/02/2018 | | Results for this | | PERIPHERAL SMEAR | e | 5:35 PM | | procedure are in the | | | | PDT | | results section. | + +--------+ + + + | CULTURE, BLOOD | STAT | 10/02/2018 | | Results for this | | | | 5:35 PM | | procedure are in the | | | | PDT | | results section. | + +--------+ + + + | PTT | STAT | 10/02/2018 | | Results for this | | | | 5:35 PM | | procedure are in the | | | | PDT | | results section. | + +--------+ + + + | PROTIME INR | STAT | 10/02/2018 | | Results for this | | | | 5:35 PM | | procedure are in the | | | | PDT | | results section. | + +--------+ + + + | D-DIMER | STAT | 10/02/2018 | | Results for this | | | | 5:35 PM | | procedure are in the | | | | PDT | | results section. | + +--------+ + + + | CBC WITH | STAT | 10/02/2018 | | Results for this | | DIFFERENTIAL | | 5:35 PM | | procedure are in the | | | | PDT | | results section. | + +--------+ + + + | B TYPE NATRIURETIC | STAT | 10/02/2018 | | Results for this | | PEPTIDE | | 5:35 PM | | procedure are in the | | | | PDT | | results section. | + +--------+ + + + | MAGNESIUM | STAT | 10/02/2018 | | Results for this | | | | 5:35 PM | | procedure are in the | | | | PDT | | results section. | + +--------+ + + + | LIPASE | STAT | 10/02/2018 | | Results for this | | | | 5:35 PM | | procedure are in the | | | | PDT | | results section. | + +--------+ + + + | LACTIC ACID | STAT | 10/02/2018 | | Results for this | | | | 5:35 PM | | procedure are in the | | | | PDT | | results section. | + +--------+ + + + | COMPREHENSIVE | STAT | 10/02/2018 | | Results for this | | METABOLIC PANEL | | 5:35 PM | | procedure are in the | | | | PDT | | results section. | + +--------+ + + + | POC GLUCOSE | Routin | 10/02/2018 | | Results for this | | | e | 5:30 PM | | procedure are in the | | | | PDT | | results section. | + +--------+ + + + | ED INFORMATION | Routin | 10/02/2018 | | | | EXCHANGE | e | 5:22 PM | | | | | | PDT | | | + +--------+ + + + +---+--------+ | | | | | Proced | | | ure | | | Note - | | | Louise, | | | Lab In | | | | | | Hlseve | | | n - | | | | | | 2018 | | | 5:23 | | | PM PDT | | [...] | | | FICATI | | | ON? | | | 28/201 | | | 9 | | | 17:21? | | | MCFADDEN, | | | KENNET | | | H | | | J?MRN: | | | | | | [id number] | | | [id number] | | | riteri | | | [...] | | Hospit | | | al 14 | | | Total | | | 14 | | | Note: | | | [...] | | out | | | of 14 | | | in the | | [...] | | | int | | | Carl | | | 28, | | | 2019 | | | [place] | | | [facility] | | | [place] [place] | | | [place] | | | [place] | | | Emerge | | | ncy | | | | | | diffic | | | ulity | | | breath | | | ing | | | [place] | | | [...] | | | [place] | | | Hspt Tutor | | | al | | | [...] | | | [place] | | | Hspt Tutor | | | al | | | [...] | | | [place] | | | Hspt Tutor | | | al | | | [...] | | | [place] | | | Hspt Tutor | | | al | | | [...] | | | [place] | | | Hspt Tutor | | | al | | | [...] | | | RN, | | | KORIN | | | S , | | | D.O. | | | Family | | | | | | Medici | | | ne | | | Curren | | | t | | | KILBOU | | | RN | | | KORIN | | | S | | | [...] | | | ent/e5 | | | [id number] | | | [id number] | | | [...] documented in this encounter Results POC Glucose (10/06/2018 11:26 AM PDT) + +---------+ + + + | Component | Value | Ref Range | Performed | Pathologist | | | | | At | Signature | + +---------+ + + + | Glucose, | 289 (H) | 70 - 110 mg/dL | [...] + + | [facility] | [address] | [place] [address] | [phone] | | [facility] | | | | + + + + + POC Glucose (10/06/2018 7:22 AM PDT) + +-------+ + + + [...] + + | [facility] | [address] | [place] [address] | [phone] | | [facility] | | | | + + + + + ECG - EXTERNAL SCAN (10/06/2018 12:00 AM PDT) + + + | Narrative | Performed At | + + + | Ordered by an | | | unspecified provider. | | + + + POC Glucose (10/05/2018 8:24 PM PDT) + +---------+ + + + | Component | Value | Ref Range | Performed | Pathologist | | | | | At | Signature | + +---------+ + + + | Glucose, | 282 (H) | 70 - 110 mg/dL | [...] + + | [facility] | [address] | [place] [address] | [phone] | | [facility] | | | | + + + + + POC Glucose (10/05/2018 4:38 PM PDT) + +---------+ + + + | Component | Value | Ref Range | Performed | Pathologist | | | | | At | Signature | + +---------+ + + + | Glucose, | 270 (H) | 70 - 110 mg/dL | [...] + + | [facility] | [address] | [place] [address] | [phone] | | [facility] | | | | + + + + + POC Glucose (10/05/2018 11:13 AM PDT) + +---------+ + + + | Component | Value | Ref Range | Performed | Pathologist | | | | | At | Signature | + +---------+ + + + | Glucose, | 204 (H) | 70 - 110 mg/dL | [...] + + | [facility] | [address] | [place] [address] | [phone] | | [facility] | | | | + + + + + POC Glucose (10/05/2018 7:36 AM PDT) + +-------+ + + + | Component | Value | Ref Range | Performed | Pathologist | | | | | At | Signature | + +-------+ + + + | Glucose, | 77 | 70 - 110 mg/dL | [place] [...] + + | [facility] | [address] | [place] [address] | [phone] | | [facility] | | | | + + + + + Wes, Manual (10/05/2018 5:25 AM PDT) + + + + + + | Component | Value | Ref Range | Performed | Pathologist | | | | | At | Signature | + + + + + + | % Segmented | 37.0 (L) | 42.0 - 76.0 % | [place] | | | | | [facility] | | | Neutrophils | | | [facility] | | | | | | [facility]AT[facility] | | + + + + + + | % | 13.0 (L) | 20.0 - 40.0 % | [...] % | 15.0 (H) | 0.0 - 7.0 % | [place] | | | Eosinophils | | | [facility] | | | | | [facility] | | | | | | [facility] | | + + + + + + | % Basophils | 1.0 | 0.0 - 2.0 % | [place] | | | | | | [facility] | | | | [facility] | | | | | | [facility] | | + + + + + + | % Bands | 12.0 (H) | 0.0 - 7.0 % | [place] [facility] | [facility] | | [facility] | | [facility] | | | | | | [facility] | | + + + + + + | % | 4.0 (H) | <0.0 % | [place] | | | Metamyelocy | | | [facility] | | | [facility] | | | [facility] | | | | | | [facility] | | + + + + + + | % | 4.0 (H) | <0.0 % | [place] | | | Myelocytes | | | [facility] | | | | | | [facility] | | | | | | [facility]AT[facility] | | + + + + + + | % | 4.0 (HH) | <0.0 % | [place] | | | Promyelocyt | | | [facility] | | | es | | | [facility]OSPITAL | | | | | | LABORATORY | | + + + + + + | % Blasts | 1.0 (HH) | <=0.0 % | [place] [facility] | | | | [facility] | | | | | [facility] | | | | | | [facility] | | + + + + + + | % Atypical | 2.0 | % | [place] | | | Lymphocytes | | | [facility] | | | | | [facility] | | | | | | [facility]ATORY | | + + + + + + | % Reactive | 1.0 | % | [place] | | | Lymphocytes | | | [facility] | | | | | [facility] | | | | | | [facility] | | + + + + + + | Absolute | 5.99 | 2.80 - 7.70 | [place] | | | Segmented | | K/uL | [facility] | | | Neutrophils | | | [facility]ITAL | | | | | | LABORATORY | | + + + + + + | Absolute | 2.11 | 1.20 - 3.30 | [place] | | | Lymphocytes | | K/uL | [facility] | | | | | [facility] | | | | | | [facility] | | + + + + + + | Absolute | 0.97 (H) | 0.00 - 0.80 | [place] | | | Monocytes | | K/uL | [facility] | | | | | [facility] | | | | | | [facility] | | + + + + + + | Absolute | 2.43 (H) | 0.00 - 0.70 | [place] | | | Eosinophils | | K/uL | [facility] | [facility] | | | | | | [facility] | | + + + + + + | Absolute | 0.16 | 0.00 - 0.20 | [place] | | | Basophils | | K/uL | [facility] | [facility] | | | | | | [facility] | | + + + + + + | Absolute | 1.94 (H) | 0.00 - 0.15 | [place] | | | Bands | | K/uL | [facility] | | | | | [facility] | | | | | | [facility] | | + + + + + + | Absolute | 0.65 | K/uL | [place] | | | Metamyelocy | | | [facility] | | | [facility] | | [facility] | | | | | | [facility] | | + + + + + + | Absolute | 0.65 | K/uL | [place] | | | Myelocytes | | | [facility] | | | | | [facility] | | | | | | [facility] | | + + + + + + | Absolute | 0.65 | K/uL | [place] | | | Promyelocyt | | | [facility] | | | es | | | [facility] | | | | | | LABORATORY | | + + + + + + | Absolute | 0.16 | K/uL | [place] | | | Blasts | | | [facility] | | | | | | [facility] | | | | | | [facility] | | + + + + + + | Absolute | 0.32 | K/uL | [facility] | | | Atypical | | | [facility] | | | Lymphocytes | | | [facility] | | | | | | LAB[facility]ATORY | | + + + + + + | Absolute | 0.16 | K/uL | [place] | | | [...] + + + + + + | Dohle | Present (A) | (none) | [place] | | | Bodies | | | [facility] | | | [...] Performed At | + + + | Few large platelets observed. | [facility] | | | [facility] | | | [facility] | + + + + + + + + | Performing | Address | City/State/Zipcode | Phone Number | | Organization | | | | + + + + + | [facility] | [address] | [place] [address] | [phone] | | [facility] | | | | + + + + + Basic Metabolic Panel (10/05/2018 5:25 AM PDT) + +-------+ + + + | Component | Value | Ref Range | Performed | Pathologist | | | | | At | Signature | + +-------+ + + + | Na | 141 | 132 - 143 | [place] | | | | | mmol/L | [facility] | | | | [facility] | | | | | | [facility] | | + +-------+ + + + | K | 3.5 | 3.3 - 4.9 | [place] | | | | | mmol/L | [facility] | | | | | | [facility] | | | | | | [facility] | | + +-------+ + + + | Cl | 107 [...] +-------+ + + + | Glucose | 88 | 70 - 110 mg/dL | [facility] | | | | | | [facility] | | | | [facility] | | | | | | [facility] | | + +-------+ + + + | BUN | 21 | 5 - 26 mg/dL | [place] | | | | | | [facility] | | | | | [facility] | | | | | | [facility] | | + +-------+ + + + | Creatinine | 0.91 | 0.70 - 1.40 | [place] | | | | | mg/dL | [facility] | | | | | | [facility] | | | | | | [facility] | | + +-------+ + + + | eGFR if not | >60 | >=60 | [place] | | | | | mL/min/1.73m2 | [facility] | | | [facility] | | | | | | [facility] | | + +-------+ + + + | Calcium | 8.6 | 8.3 - 10.0 | [place] | | | | | mg/dL | [facility] | | | | | | [facility] | | | | | | [facility] | | + +-------+ + + + | BUN/Creatin | 23.1 | 7.0 - 24.0 | [facility] | [...] + + | [facility] | [address] | [place] [address] | [phone] | | [facility] | | | | + + + + + CBC with Differential (10/05/2018 5:25 AM PDT) + + + + + [...] + + + + | RBC | 3.54 (L) | 4.36 - 5.83 | [facility] [...] + + + + | Hematocrit | 32.7 (L) | 39.0 - 51.9 % | [facility] | [facility] | | [facility] | | | | | | [facility] | | + + + + + + | MCV | 92.4 | 82.0 - 96.0 fL | [facility] [...] + + + + | RDW-CV | 19.7 (H) | 0.0 - 17.0 % | [facility] | | [facility] | [facility] | | | | | | [facility] | | + + + + + + | Platelet | 134 (L) | 150 - 450 K/uL | [...] + + + | Absolute | 0.02 (H) | 0.00 - 0.01 | [facility] [...] + + | [facility] | [address] | [place] [address] | [phone] | | [facility] | | | | + + + + + POC Glucose (10/04/2018 8:29 PM PDT) + +---------+ + + [...] + + | [facility] | [address] | [place] [address] | [phone] | | [facility] | | | | + + + + + POC Glucose (10/04/2018 4:37 PM PDT) + +---------+ + + + | Component | Value | Ref Range | Performed | Pathologist | | | | | At | Signature | + +---------+ + + + | Glucose, | 347 (H) | 70 - 110 mg/dL | [...] + + | [facility] | [address] | [place] [address] | [phone] | | [facility] | | | | + + + + + POC Glucose (10/04/2018 11:35 AM PDT) + +---------+ + + + | Component | Value | Ref Range | Performed | Pathologist | | | | | At | Signature | + +---------+ + + + | Glucose, | 283 (H) | 70 - 110 [...] + + | [facility] | [address] | [place] [address] | [phone] | | [facility] | | | | + + + + + POC Glucose (10/04/2018 7:39 AM PDT) + +---------+ + + + | Component | Value | Ref Range | Performed | Pathologist | | | | | At | Signature | + +---------+ + + + | Glucose, | 231 (H) | 70 - 110 mg/dL | [...] + + | [facility] | [address] | [place] [address] | [phone] | | [facility] | | | | + + + + + Differential, Manual (10/04/2018 6:10 AM PDT) + + + + + + | Component | Value | Ref Range | Performed | Pathologist | | | | | At | Signature | + + + + + + | % Segmented | 42.0 | 42.0 - 76.0 % | [facility] [...] + + + + | % | 8.0 (H) | 0.0 - 7.0 [...] + + + | % Bands | 28.0 (H) | 0.0 - 7.0 % | [facility] | | | | | | [facility] | | + + + + + + | % | 4.0 (H) | <0.0 % | [facility] | [...] + + + + | Absolute | 6.89 | 2.80 - 7.70 | [facility] | | | Segmented | | K/uL | [facility] | | | Neutrophils | | | [facility] | | | | | | LAB[facility]ATORY | | + + + + + + | Absolute | 1.15 (L) | 1.20 - 3.30 | [facility] | | | Lymphocytes | | K/uL | [facility] | | | | | [facility] | | | | | | [facility] | | + + + + + + | Absolute | 0.98 (H) | 0.00 - 0.80 | [facility] | | | Monocytes | | K/uL | [facility] | | | | | [facility] | | | | | | LABORATORY | | + + + + + + | Absolute | 1.31 (H) | 0.00 - 0.70 | [facility] [...] + + + + | Absolute | 4.59 (H) | 0.00 - 0.15 | [facility] | | | Bands | | K/uL | [facility] | | | | [facility] | | | | | | LABORATORY | | + + + + + + | Absolute | 0.66 | K/uL | [facility] | | | Metamyelocy | | | [facility] | [facility] | | | | | | LAB[facility]ATORY | | + + + + + + | Absolute | 0.49 | K/uL | [facility] | | | Atypical | | | [facility] | | | Lymphocytes | | | [facility] | | | | | | LABORATORY | | + + + + + + | % nRBC | 1 (H) | <=0 per 100 | [facility] | [...] + + | [facility] | [address] | [place] [address] | [phone] | | HOSP[facility] LAB[facility]ATORY | | | | + + + + + Basic Metabolic Panel (10/04/2018 6:10 AM PDT) + + + + + [...] + + + + | Cl | 108 | 95 - 108 mmol/L | [facility] [...] + + + + | BUN | 26 | 5 - 26 mg/dL | [facility] | | | | | | [facility] | | | | | | [facility]ATORY | | + + + + + + | Creatinine | 1.05 | 0.70 - 1.40 | [facility] | | | | | mg/dL | [facility] | [facility] | | [facility] | | | | | | LABORATORY | | + + + + + + | eGFR if not | >60 | >=60 | [facility] | | | | | mL/min/1.73m2 | [facility] | | | | | | [facility]ATORY | | + + + + + + | Calcium | 8.3 | 8.3 - 10.0 | [facility] | | | | | mg/dL | [facility] | | | | | | LABORATORY | | + + + + + + | BUN/Creatin | 24.8 (H) | 7.0 - 24.0 | [facility] [...] + + | [facility] | [address] | [place] [address] | [phone] | | H[facility]PITAL LAB[facility]ORY | | | | + + + + + CBC with Differential (10/04/2018 6:10 AM PDT) + + + + + + | Component | Value | Ref Range | Performed | Pathologist | | | | | At | Signature | + + + + + + | WBC | 16.4 (H) | 4.6 - 10.5 K/uL | [facility] | | | | | | [facility] | | | | | | [facility]ATORY | | + + + + + + | RBC | 3.44 (L) | 4.36 - 5.83 | [facility] [...] + + + + | Platelet | 122 (L) | 150 - 450 K/uL | [facility] | | | Count | | | [facility] | | | | | [facility] | | | | | | LABORATORY | | + + + + + + | MPV | Comment: Value not | 9.4 - 12.4 fL | [facility] | | | | reportable | | [facility] | | | | [...] + + | [facility] | [address] | [place] [address] | [phone] | | HOSPITAL LAB[facility] | | | | + + + + + Magnesium (10/04/2018 6:10 AM PDT) + +-------+ + + + [...] + + | [facility] | [address] | [place] [address] | [phone] | | [facility] | | | | + + + + + POC Glucose (10/03/2018 8:22 PM PDT) + +---------+ + + + | Component | Value | Ref Range | Performed | Pathologist | | | | | At | Signature | + +---------+ + + + | Glucose, | 336 (H) | 70 - 110 mg/dL | [...] + + | [facility] | [address] | [place] [address] | [phone] | | [facility] | | | | + + + + + POC Glucose (10/03/2018 4:42 PM PDT) + +---------+ + + + | Component | Value | Ref Range | Performed | Pathologist | | | | | At | Signature | + +---------+ + + + | Glucose, | 318 (H) | 70 - 110 mg/dL | [...] + + | [facility] | [address] | [place] [address] | [phone] | | [facility] | | | | + + + + + POC Glucose (10/03/2018 11:31 AM PDT) + +---------+ + + + | Component | Value | Ref Range | Performed | Pathologist | | | | | At | Signature | + +---------+ + + + | Glucose, | 357 (H) | 70 - 110 mg/dL | [...] + + | [facility] | [address] | [place] [address] | [phone] | | [facility] | | | | + + + + + POC Glucose (10/03/2018 7:51 AM PDT) + +---------+ + + + | Component | Value | Ref Range | Performed | Pathologist | | | | | At | Signature | + +---------+ + + + | Glucose, | 310 (H) | 70 - 110 mg/dL | [...] + + | [facility] | [address] | [place] [address] | [phone] | | [facility] | | | | + + + + + Differential, Manual (10/03/2018 6:30 AM PDT) + + + + + + | Component | Value | Ref Range | Performed | Pathologist | | | | | At | Signature | + + + + + + | % Segmented | 56.3 | 42.0 - 76.0 % | [facility] | | | | | | [facility] | | | Neutrophils | | | [facility] | | | | | | LABORATORY | | + + + + + + | % | 32.4 | 20.0 - 40.0 % | [facility] | | | Lymphocytes | | | [facility] | | | | | | [facility] | | | | | | LAB[facility]ATORY | | + + + + + + | % Monocytes | 2.8 (L) | 3.0 - 13.0 % | [facility] [...] + + + + | Absolute | 6.20 | 2.80 - 7.70 | [facility] | | | Segmented | | K/uL | [facility] | | | Neutrophils | | | [facility] | | | | | | LABORATORY | | + + + + + + | Absolute | 3.56 (H) | 1.20 - 3.30 | [facility] | | | Lymphocytes | | K/uL | [facility] | | | | | [facility] | | | | | | [facility]ATORY | | + + + + + + | Absolute | 0.31 | 0.00 - 0.80 | [facility] | | | Monocytes | | K/uL | [facility] | | [facility] | [facility] | | | | | | [facility]ORY | | + + + + + + | Absolute | 0.93 (H) | 0.00 - 0.70 | [facility] | | | Eosinophils | | K/uL | [facility] | | | | | [facility] | | | | | | [facility]ATORY | | + + + + + + | Total | 71 | | [facility] | | | Counted [...] + + + + | RBC | Moderate (A) | (none) | [facility] | | [...] + + + + | Reactive | Moderate (A) | (none) | [facility] | | | Lymphocytes | | | [facility] | | | | [facility] | | | | | | LAB[facility]ATORY | | + + + + + + | Smudge | Slight | | [facility] | | | Cells | [...] + + | [facility] | [address] | [place] [address] | [phone] | | [facility] | | | | + + + + + Lactic Acid (10/03/2018 6:30 AM PDT) + +-------+ + + + [...] + + | [facility] | [address] | [place] [address] | [phone] | | [facility] | | | | + + + + + CBC with Differential (10/03/2018 6:30 AM PDT) + + + + + [...] + + + + | RBC | 3.54 (L) | 4.36 - 5.83 | [facility] | | | | | M/uL | [facility] | | | | | [facility] | | | | | | [facility]ATORY | | + + + + + + | Hemoglobin | 10.6 (L) | 13.1 - 17.4 | [facility] | | | | | g/dL | [facility] | | | | | | [facility] | | | | | | [facility]ORY | | + + + + + + | Hematocrit | 32.8 (L) | 39.0 - 51.9 % | [facility] | | | | | | [facility] | | | | [facility] | | | | | | [facility] | | + + + + + + | MCV | 92.7 | 82.0 - 96.0 fL | [facility] [...] + + + + | MCHC | 32.3 | 32.0 - 36.9 | [facility] | [...] + + + + | Platelet | 92 (L) | 150 - 450 K/uL | [facility] | | | Count | | | [facility] | | | | | | [facility] | | | | | | [facility]ATORY | | + + + + + + | MPV | Comment: Unable to | 9.4 - 12.4 fL | [facility] | | | | determine MPV. | | [facility] | | | | [...] + + | [facility] | [address] | [place] [address] | [phone] | | [facility] | | | | + + + + + Basic Metabolic Panel (10/03/2018 6:30 AM PDT) + +---------+ + + + [...] +---------+ + + + | K | 4.4 [...] +---------+ + + + | CO2 | 24 [...] +---------+ + + + | Glucose | 379 (H) | 70 - 110 mg/dL | [...] +---------+ + + + | Creatinine | 1.20 | 0.70 - 1.40 | [facility] | | | | | mg/dL | [facility] | | | | [facility] | | | | | | [facility]ORY | | + +---------+ + + + | eGFR if not | 58 (L) | >=60 | [facility] | | | | | mL/min/1.73m2 | [facility] | | [facility] | | | | | | [facility] | | + +---------+ + + + | Calcium | 8.1 (L) | 8.3 - 10.0 | [facility] | | | | | mg/dL | [facility] | | | | | [facility] | | | | | | [facility]ORY | | + +---------+ + + + | BUN/Creatin | 17.5 | 7.0 - 24.0 | [facility] | [...] + + | [facility] | [address] | [place] [address] | [phone] | | [facility] | | | | + + + + + POC Glucose (10/02/2018 10:55 PM PDT) + +---------+ + + + | Component | Value | Ref Range | Performed | Pathologist | | | | | At | Signature | + +---------+ + + + | Glucose, | 343 (H) | 70 - 110 mg/dL | [...] + + | [facility] | [address] | [place] [address] | [phone] | | [facility] | | | | + + + + + XR Chest 2 Vws (10/02/2018 8:16 PM PDT) + + | Specimen | + + | | + + + + + | Impressions | Performed At | + + + | IMPRESSION: Left lower lobe pneumonia. Hypoventilation. Left | [facility] | | lower lobe mass. Hilar lymphadenopathy. Dictated by: Massimo Alba | | | 10:35 PM | | + + + + + + | Narrative | Performed At | + + + | EXAMINATION: XR CHEST 2 VIEWS HISTORY: cough COMPARISON | [facility] | | STUDY: September 30, 2018, September 24, 2018 FINDINGS: The lungs are | | | mildly hypoventilated. Fullness to the hilum and mediastinum | | | consistent with known adenopathy. Hazy lateral airspace opacity. | | | Flattening of the hemidiaphragm. Posterior left lower lobe mass is | | | redemonstrated. No pleural effusion. No pneumothorax. Heart | | | is mildly enlarged. No acute osseous process. | | + + + + + | Procedure Note | + + | Louise, Rad Results In - 10/02/2018 10:39 PM PDT EXAMINATION:XR CHEST 2 | | VIEWSHISTORY:coughCOMPARISON STUDY:September 30, 2018, September 24, 2018FINDINGS:The lungs are | | mildly hypoventilated. Fullness to the hilum and mediastinum consistent with known | | adenopathy. Hazy lateral airspace opacity. Flattening of the hemidiaphragm. Posterior | | left lower lobe mass is redemonstrated. No pleural effusion. No pneumothorax. Heart | | is mildly enlarged. No acute osseous process.IMPRESSION: IMPRESSION:Left lower lobe | | pneumonia.Hypoventilation.Left lower lobe mass.Hilar lymphadenopathy.Dictated by: Massimo | | [facility] | | | |FINDINGS: | |The lungs are mildly hypoventilated. Fullness to the hilum and mediastinum consistent with known adenopathy. Hazy lateral airspace opacity. Flattening of the hemidiaphragm. [employer] Super[employer] ior left lower lobe mass | |is redemonstrated. No pleural effusion. No | |pneumothorax. Heart is mildly enlarged. No acute osseous process. | | | |IMPRESSION: | |IMPRESSION: | |Left lower lobe pneumonia. | |Hypoventilation. | |Left lower lobe mass. | |Hilar lymphadenopathy. | | | |Dictated by: Massimo Alba | | | | | + + + +---------+ + + | Performing | Address | City/State/Zipcode | Phone Number | | Organization | | | | + +---------+ + + | [facility] | | | | + +---------+ + + Influenza A and B ADAM Spring (10/02/2018 7:36 PM PDT) + + + + + [...] + + | [facility] | [address] | [place] [address] | [phone] | | [facility] | | | | + + + + + CT Head wo Contrast (10/02/2018 7:20 PM PDT) + + | Specimen | + + | | + + + + + | Impressions | Performed At | + + + | IMPRESSION: 1. No acute intracranial process. 2. Remote right | [facility] | | cerebellar lacunar infarct. 3. Mild white matter disease, likely | | | related to chronic small vessel ischemia. 4. Mild age related volume | | | loss. 5. More focal left maxillary sinus mucosal thickening versus | | | mucous retention cyst. Dictated by: Massimo Alba | | | | | + + + + + + | Narrative | Performed At | + + + | EXAMINATION: CT HEAD WO CONTRAST HISTORY: ALTERED MENTAL | [facility] | | STATUS; WEAKNESS COMPARISON STUDY: July 24, 2018, July 15, 2018 | | | TECHNIQUE: 5 mm axial slices were acquired through the brain | | | without contrast. DOSE REPORT: CTDIvol: 40.4 mGy. DLP: 717 | | | mGy-cm. Automated exposure control was utilized. FINDINGS: No | | | evidence of an acute intracranial hemorrhage, mass lesion, or midline | | | shift. The reinoso-white matter interface is intact. Remote right | | | cerebellar lacunar infarct. The ventricles are symmetric. Sulci are | | | mildly prominent at the vertex. Basilar cisterns are patent. Patchy | | | periventricular white matter hypodensities are again noted. 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 Bilateral | | | maxillary sinus mild mucosal thickening. Left maxillary sinus has a | | | more globular appearing hypodensity compared to previous exams.. | | | Mastoid air cells are clear. No fracture. | | + + + + + | Procedure Note | + + | Louise, Rad Results In - 10/02/2018 10:36 PM PDT EXAMINATION:CT HEAD WO | | CONTRASTHISTORY:ALTERED MENTAL STATUS; WEAKNESSCOMPARISON STUDY:July 24, 2018, July | | 2018TECHNIQUE:5 mm axial slices were acquired through the brain without | | contrast.DOSE REPORT:CTDIvol: 40.4 mGy. DLP: 717 mGy-cm. 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 Left maxillary sinus has a more globular appearing | | hypodensity compared to previous exams..Mastoid air cells are clear.No | | fracture.IMPRESSION: IMPRESSION:1. No acute intracranial process.2. Remote right | | cerebellar lacunar infarct.3. Mild white matter disease, likely related to chronic small | | vessel ischemia.4. Mild age related volume loss.5. More focal left maxillary sinus | | mucosal thickening versus mucous retention cyst.Dictated by: Massimo | | [facility] | |No evidence of an acute intracranial hemorrhage, mass lesion, or midline shift. | |The reinoso-white matter interface is intact. | |Remote right cerebellar lacunar infarct. | |The ventricles are symmetric. | |Sulci are mildly prominent at the vertex. | |Basilar cisterns are patent. | |Patchy periventricular white matter hypodensities are again noted. 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 | |Bilateral maxillary sinus mild mucosal thickening. Left maxillary sinus has a more globula r appearing hypodensity compared to previous exams.. | |Mastoid air cells are clear. | |No fracture. | | | |IMPRESSION: | |IMPRESSION: | |1. No acute intracranial process. | |2. Remote right cerebellar lacunar infarct. | |3. Mild white matter disease, likely related to chronic small vessel ischemia. | |4. Mild age related volume loss. | |5. More focal left maxillary sinus mucosal thickening versus mucous retention cyst. | | | | | | | |Dictated by: Massimo Alba | | | | | + + + +---------+ + + | Performing | Address | City/State/Zipcode | Phone Number | | Organization | | | | + +---------+ + + | [facility] | | | | + +---------+ + + ECG 12 lead (10/02/2018 6:16 PM PDT) + + | Specimen | + + | | + + + + + | Narrative | Performed At | + + + | Heart Rate: | [place] WGR | | 114 bpmQRS Interval: 80 msQT Interval: 296 msQTC Interval: 408 msP | [facility] | | [place]: 24 degQRS [place]: -22 degT Wave [place]: 18 degP-R Interval: 172 | | | msec- ABNORMAL ECG -SINUS TACHYCARDIA [Now Present]PROBABLE INFERIOR | | | INFARCT, AGE INDETERMINATE [Less Prom.]SIGNIFICANT RHYTHM AND ECG | | | CONTOUR CHANGES[Now Absent] MULTIPLE ATRIAL PREMATURE COMPLEXES[Now | | | Absent] SINUS RHYTHM | | |P-R Interval: 172 msec | | |- ABNORMAL ECG - | | |SINUS TACHYCARDIA [Now Present] | | |PROBABLE INFERIOR INFARCT, AGE INDETERMINATE [Less Prom.] | | |SIGNIFICANT RHYTHM AND ECG CONTOUR CHANGES | | |[Now Absent] MULTIPLE ATRIAL PREMATURE COMPLEXES | | |[Now Absent] SINUS RHYTHM | | + + + + +---------+ + + | Performing | Address | City/State/Zipcode | Phone Number | | Organization | | | | + +---------+ + + | [facility] | | | | + +---------+ + + Troponin I (10/02/2018 6:04 PM PDT) + +-------+ + + + [...] + + | [facility] | [address] | [place] [address] | [phone] | | [facility] | | | | + + + + + Culture, Blood (10/02/2018 6:03 PM PDT) + + + + + [...] + + | [facility] | [address] | [place] [address] | [phone] | | [facility] | | | | + + + + + Urinalysis With Microscopic (10/02/2018 5:54 PM PDT) + + + + + [...] + + + + | Clarity | Slightly Cloudy (A) | Clear | [facility] | | | [...] - 1.030 | [facility] | | | [place] | | | [facility] | | | [...] + + + + | Nitrite, | Positive (A) | Negative | [facility] [...] + + + | WBC UA | 10 - 20 (A) | <=5 /HPF | [facility] | [...] + + | [facility] | [address] | [place] [address] | [phone] | | [facility] | | | | + + + + + Slide Review, Peripheral Smear (10/02/2018 5:35 PM PDT) + + + + + [...] + + | [facility] | [address] | [place] [address] | [phone] | | [facility] | | | | + + + + + Culture, Blood (10/02/2018 5:35 PM PDT) + + + + + [...] + + | [facility] | [address] | [place] [address] | [phone] | | [facility] | | | | + + + + + Lactic Acid (10/02/2018 5:35 PM PDT) + + + + + [...] + + | [facility] | [address] | [place] [address] | [phone] | | [facility] | | | | + + + + + D-Dimer (10/02/2018 5:35 PM PDT) + + + + + + | Component | Value | Ref Range | Performed | Pathologist | | | | | At | Signature | + + + + + + | D-Dimer | 1.38 (H) | <=0.59 ug/mL | [facility] | [...] + | A study performed by the vice president of finance using this assay showed a 99% | [...] + + | [facility] | [address] | [place] [address] | [phone] | | [facility] | | | | + + + + + B Type Natriuretic Peptide (10/02/2018 5:35 PM PDT) + +---------+ + + + | Component | Value | Ref Range | Performed | Pathologist | | | | | At | Signature | + +---------+ + + + | NT-proBNP | 480 (H) | <=450 pg/mL | [facility] | | [...] + + | [facility] | [address] | [place] [address] | [phone] | | [facility] | | | | + + + + + Lipase (10/02/2018 5:35 PM PDT) + +-------+ + + + | Component | Value | Ref Range | Performed | Pathologist | | | | | At | Signature | + +-------+ + + + | Lipase | 110 | 73 - 393 U/L | [facility] [...] + + | [facility] | [address] | [place] [address] | [phone] | | [facility] | | | | + + + + + Comprehensive Metabolic Panel (10/02/2018 5:35 PM PDT) + + + + + [...] + + + + | Glucose | 314 (H) | 70 - 110 mg/dL | [...] + + + + | Creatinine | 1.40 | 0.70 - 1.40 | [facility] | | | | | mg/dL | [facility] | | | | | [facility] | | | | | | [facility]ATORY | | + + + + + + | eGFR if not | 49 (L)Comment: | >=60 | [facility] | | | | GLOMERULAR FILTRATION | mL/min/1.73m2 | [facility] | | | [facility] | RATE,ESTIMATED | | [facility] | | | | mL/min/1.92k0Nvtl than | | LABORATORY | | | [...] + + + + | Albumin | 2.9 (L) | 3.0 - 4.5 g/dL | [facility] | | | | | | [facility] | | | | [facility] | | | | | | [facility] | | + + + + + + | Bilirubin | 1.4 (H) | 0.0 - 1.2 mg/dL | [facility] | | | Total | | | [facility] | | | | | [facility] | | | | | | [facility]ORY | | + + + + + + | Total | 6.9 | 6.6 - 8.5 g/dL | [facility] | | | Protein | | | [facility] | | | | | | [facility] | | | | | | LAB[facility]ATORY | | + + + + + + | AST | 21 | 0 - 38 U/L | [facility] | | | | | | [facility] | | | | [facility] | | | | | | [facility] | | + + + + + + | ALT | 20 | 16 - 63 U/L | [facility] | | | | | | [facility] | | | | [facility] | | | | | | [facility] | | + + + + + + | Alkaline | 130 (H) | 46 - 116 U/L | [facility] | | | Phosphatase | | | [facility] | | | | | [facility] | | | | | | LAB[facility]ORY | | + + + + + + | Globulin | 4.0 | 2.4 - 4.5 g/dL | [facility] [...] + + + + | BUN/Creatin | 12.1 | 7.0 - 24.0 | [facility] | [...] + + | [facility] | [address] | [place] [address] | [phone] | | [facility] | | | | + + + + + CBC with Differential (10/02/2018 5:35 PM PDT) + + + + + + | Component | Value | Ref Range | Performed | Pathologist | | | | | At | Signature | + + + + + + | WBC | 14.8 (H) | 4.6 - 10.5 K/uL | [...] + + + + | Hematocrit | 37.4 (L) | 39.0 - 51.9 % | [...] + + + + | Platelet | 99 (L)Comment: Slide | 150 - 450 K/uL | [facility] | | | Count | review supports | | [facility] | | | | instrument's platelet | | [facility]OSPITAL | | | | count | | LABORATORY | | + + + + + + | MPV | Comment: Not reportable | 9.4 - 12.4 fL | [facility] | | | | | | [facility] | | | | | | [facility] | | | | | | [facility] | | + + + + + + | % | 72.7Comment: 30% Bands | 42.0 - 76.0 % | [facility] | | | Neutrophils | | | [facility] | | | | | | [facility] | | | | | | LAB[facility]ATORY | | + + + + + + | % | 6.9 (L) | 20.0 - 40.0 % | [facility] | | | Lymphocytes | | | [facility] | | | | | | [facility] | | | | | | [facility] | | + + + + + + | % Monocytes | 8.4 | 3.0 - 13.0 % | [facility] | | | | | | [facility] | | | | | [facility] | | | | | | [facility] | | + + + + + + | % | 9.1 (H) | 0.0 - 7.0 % | [...] + + + | % Immature | 2.6 (H) | 0.0 - 0.5 % | [facility] | | | Granulocyte | | | [facility] | | | s | | | [facility]PITAL | | | | | | LAB[facility]ATORY | | + + + + + + | Absolute | 10.75 (H) | 2.80 - 7.70 | [facility] [...] + + + | Absolute | 1.24 (H) | 0.00 - 0.80 | [facility] | | | Monocytes | | K/uL | [facility] | | | | | [facility] | | | | | | [facility] | | + + + + + + | Absolute | 1.34 (H) | 0.00 - 0.70 | [facility] [...] + + + + | Absolute | 0.38 (H) | 0.00 - 0.15 | [facility] [...] + + | [facility] | [address] | [place] [address] | [phone] | | [facility] | | | | + + + + + PTT (10/02/2018 5:35 PM PDT) + +-------+ + + + | Component | Value | Ref Range | Performed | Pathologist | | | | | At | Signature | + +-------+ + + + | aPTT | 26 | 25 - 33 seconds | [facility] [...] | + + + + + | [facility] | [address] | [place] [address] | [phone] | | [facility] | | | | + + + + + Protime INR (10/02/2018 5:35 PM PDT) + + + + + + | Component | Value | Ref Range | Performed | Pathologist | | | | | At | Signature | + + + + + + | Prothrombin | 11.7 (H) | 9.3 - 11.4 | [facility] | | | Time | | seconds | [facility] | | | | | | [facility] | | | | | | [facility] | | + + + + + + | INR | 1.2 | 0.8 - 1.2 | [facility] | [...] + + | [facility] | [address] | [place] [address] | [phone] | | [facility] | | | | + + + + + Magnesium (10/02/2018 5:35 PM PDT) + +---------+ + + + | Component | Value | Ref Range | Performed | Pathologist | | | | | At | Signature | + +---------+ + + + | Magnesium | 1.4 (L) | 1.8 - 2.4 mg/dL | [facility] | | | | [...] + + | [facility] | [address] | [place] [address] | [phone] | | [facility] | | | | + + + + + POC Glucose (10/02/2018 5:30 PM PDT) + +---------+ + + + | Component | Value | Ref Range | Performed | Pathologist | | | | | At | Signature | + +---------+ + + + | Glucose, | 308 (H) | 70 - 110 mg/dL | [...] + + | [facility] | [address] | [place] [address] | [phone] | | [facility] | | | | + + + + + documented in this encounter Visit Diagnoses + + | Diagnosis | + + | Metabolic encephalopathy - Primary | + + | Delirium Other alteration of consciousness | + + | Fever, unspecified fever cause | + + | Hypoxemia | + + | Acute exacerbation of chronic obstructive pulmonary disease (COPD) (HCC) Obstructive | | chronic bronchitis with exacerbation | + + | Pneumonia due to infectious organism, unspecified laterality, unspecified part of lung | + + | Urinary tract infection with hematuria, site unspecified | + + | Hypomagnesemia Disorders of magnesium metabolism | + + | Dehydration | + + | Acute cystitis without hematuria Acute cystitis | + + | Type 2 diabetes mellitus with complication, with long-term current use of insulin | | (HCC) | + + | 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) | + + | Mediastinal lymphadenopathy Enlargement of lymph nodes | + + | Community acquired pneumonia of left lower lobe of lung (HCC) | + + documented in this encounter Administered Medications + +--------+ + +------+------+ | Medication Order | MAR | Action | Dose | Rate | Site | | | Action | Date | | | | + +--------+ + +------+------+ | acetaminophen (TYLENOL) tablet | Given | 10/03/19 | 1,000 mg | | | | 1,000 mg 1,000 mg, Oral, ONCE, | | 19 6:08 | | | | | 10/02/18 at 1815, For 1 dose | | PM PDT | | | | + +--------+ + +------+------+ +---+---+ | | | +---+---+ + +-------+ +--------+---+---+ | acetaminophen (TYLENOL) tablet | Given | 10/06/19 | 650 mg | | | | 650 mg 650 mg, Oral, EVERY 4 | | 19 8:00 | | | | | HOURS PRN, Pain, or fever >= 38.6 | | PM PDT | | | | | C (101.5 F), Starting Fri | | | | | | | 10/02/18 at 2238 | | | | | | + +-------+ +--------+---+---+ +---+---+ | | | +---+---+ + +-------+ +--------+---+---+ | albuterol 2.5 mg/3 mL nebulizer | Given | 10/03/19 | 2.5 mg | | | | solution 2.5 mg 2.5 mg, | | 19 6:32 | | | | | Nebulization, EVERY 20 MINUTES | | PM PDT | | | | | PRN, Wheezing, Starting Fri | | | | | | | 10/02/18 at 1746, For 3 doses, ., | | | | | | + +-------+ +--------+---+---+ +---+---+ | | | +---+---+ + +-------+ +--------+---+---+ | albuterol 2.5 mg/3 mL nebulizer | Given | 10/05/19 | 2.5 mg | | | | solution 2.5 mg 2.5 mg, | | 19 10:08 | | | | | Nebulization, RT EVERY 2 HOURS | | AM PDT | | | | | PRN, Wheezing, Shortness of | | | | | | | Breath, Starting 10/02/18 at | | | | | | | 2344, RT will administer., | | | | | | + +-------+ +--------+---+---+ +-------+ +--------+---+---+ | Given | 10/04/19 | 2.5 mg | | | | | 19 12:29 | | | | | | AM PDT | | | | +-------+ +--------+---+---+ +---+---+ | | | +---+---+ + +-------+ +-------+---+---+ | albuterol-ipratropium 2.5-0.5 | Given | 10/03/19 | 3 mLs | | | | mg/3 mL nebulizer solution 3 mL | | 19 6:24 | | | | | 3 mL, Nebulization, ONCE, Fri | | PM PDT | | | | | 10/02/18 at 1815, For 1 dose, ., | | | | | | + +-------+ +-------+---+---+ +---+---+ | | | +---+---+ + +-------+ +--------+---+---+ | aspirin EC tablet 325 mg 325 | Given | 10/07/19 | 325 mg | | | | mg, Oral, DAILY, First dose on | | 19 7:59 | | | | | 10/03/18 at 0900 | | AM PDT | | | | + +-------+ +--------+---+---+ +-------+ +--------+---+---+ | Given | 10/06/19 | 325 mg | | | | | 19 8:28 | | | | | | AM PDT | | | | +-------+ +--------+---+---+ | Given | 10/05/19 | 325 mg | | | | | 19 8:08 | | | | | | AM PDT | | | | +-------+ +--------+---+---+ +---+---+ | | | +---+---+ + +-------+ +-------+---+---+ | atorvaSTATin (LIPITOR) tablet | Given | 10/07/19 | 10 mg | | | | 10 mg 10 mg, Oral, EVERY | | 19 8:00 | | | | | MORNING, First dose on Sat | | AM PDT | | | | | 10/03/18 at 0900 | | | | | | + +-------+ +-------+---+---+ +-------+ +-------+---+---+ | Given | 10/06/19 | 10 mg | | | | | 19 8:29 | | | | | | AM PDT | | | | +-------+ +-------+---+---+ | Given | 10/05/19 | 10 mg | | | | | 19 8:08 | | | | | | AM PDT | | | | +-------+ +-------+---+---+ +---+---+ | | | +---+---+ + +---------+ +--------+-------+---+ | azithromycin (ZITHROMAX) 500 mg | New Bag | 10/03/19 | 500 mg | 250 | | | in sodium chloride 0.9% 250 mL | | 19 8:05 | | mL/hr | | | IVPB 500 mg, Intravenous, | | PM PDT | | | | | Administer over 60 Minutes, ONCE, | | | | | | | 10/02/18 at 1915, For 1 dose, | | | | | | | Activate system and mix before | | | | | | | use., Indications: Community | | | | | | | Acquired Pneumonia | | | | | | + +---------+ +--------+-------+---+ +---+---+ | | | +---+---+ + +---------+ +--------+-------+---+ | azithromycin (ZITHROMAX) 500 mg | New Bag | 10/06/19 | 500 mg | 250 | | | in sodium chloride 0.9% 250 mL | | 19 8:40 | | mL/hr | | | IVPB 500 mg, Intravenous, | | AM PDT | | | | | Administer over 60 Minutes, | | | | | | | DAILY, First dose on 10/03/18 | | | | | | | at 0900, For 3 days, Activate | | | | | | | system and mix before use., | | | | | | | Indications: Community Acquired | | | | | | | Pneumonia | | | | | | + +---------+ +--------+-------+---+ +---------+ +--------+-------+---+ | New Bag | 10/05/19 | 500 mg | 250 | | | | 19 8:04 | | mL/hr | | | | AM PDT | | | | +---------+ +--------+-------+---+ | New Bag | 10/04/19 | 500 mg | 250 | | | | 19 9:36 | | mL/hr | | | | AM PDT | | | | +---------+ +--------+-------+---+ + +---+ | | | + +---+ | bisacodyl (DULCOLAX) EC tablet | | | 10 mg 10 mg, Oral, DAILY PRN, | | | Constipation, Starting Sun | | | 10/04/18 at 0045, Do not cut or | | | crush., | | + +---+ | | | + +---+ + +---------+ +-----+-------+---+ | cefTRIAXone (ROCEPHIN) 1 g in | New Bag | 10/03/19 | 1 g | 100 | | | sodium chloride 0.9% 50 mL IVPB | | 19 8:23 | | mL/hr | | | 1 g, Intravenous, Administer over | | PM PDT | | | | | 30 Minutes, ONCE, 10/02/18 at | | | | | | | 1915, For 1 dose, Activate | | | | | | | system and mix before use., | | | | | | | Indications: Community Acquired | | | | | | | Pneumonia, UTI - UPPER | | | | | | + +---------+ +-----+-------+---+ +---+---+ | | | +---+---+ + +---------+ +-----+-------+---+ | cefTRIAXone in dextrose | New Bag | 10/06/19 | 1 g | 100 | | | (ROCEPHIN) IVPB 1 g 1 g, | | 19 10:04 | | mL/hr | | | Intravenous, Administer over 30 | | AM PDT | | | | | Minutes, EVERY 24 HOURS INTERVAL, | | | | | | | First dose on 10/03/18 at | | | | | | | 1000, For 5 days, Indications: | | | | | | | Community Acquired Pneumonia | | | | | | + +---------+ +-----+-------+---+ +---------+ +-----+-------+---+ | New Bag | 10/05/19 | 1 g | 100 | | | | 19 9:54 | | mL/hr | | | | AM PDT | | | | +---------+ +-----+-------+---+ | New Bag | 10/04/19 | 1 g | 100 | | | | 19 10:53 | | mL/hr | | | | AM PDT | | | | +---------+ +-----+-------+---+ +---+---+ | | | +---+---+ + +-------+ +--------+---+---+ | cefUROXime (CEFTIN) tablet 500 | Given | 10/07/19 | 500 mg | | | | mg 500 mg, Oral, 2 TIMES DAILY, | | 19 8:00 | | | | | First dose on Fri10/05/18 at 2100, | | AM PDT | | | | | Indications: Community Acquired | | | | | | | Pneumonia | | | | | | + +-------+ +--------+---+---+ +-------+ +--------+---+---+ | Given | 10/06/19 | 500 mg | | | | | 19 9:22 | | | | | | PM PDT | | | | +-------+ +--------+---+---+ +---+---+ | | | +---+---+ + +-------+ +-------+---+---+ | clopidogrel (PLAVIX) tablet 75 | Given | 10/07/19 | 75 mg | | | | mg 75 mg, Oral, EVERY MORNING, | | 19 8:00 | | | | | First dose on 10/03/18 at 0900 | | AM PDT | | | | + +-------+ +-------+---+---+ +-------+ +-------+---+---+ | Given | 10/06/19 | 75 mg | | | | | 19 8:30 | | | | | | AM PDT | | | | +-------+ +-------+---+---+ | Given | 10/05/19 | 75 mg | | | | | 19 8:08 | | | | | | AM PDT | | | | +-------+ +-------+---+---+ +---+---+ | | | +---+---+ + +-------+ +--------+---+---+ | cyanocobalamin (VITAMIN B-12) | Given | 07/02/20 | 1,000 | | | | tablet 1,000 mcg 1,000 mcg, | | 19 8:01 | mcg | | | | Oral, EVERY MORNING, First dose | | AM PDT | | | | | on 10/03/18 at 0900 | | | | | | + +-------+ +--------+---+---+ +-------+ +--------+---+---+ | Given | 10/06/19 | 1,000 | | | | | 19 8:30 | mcg | | | | | AM PDT | | | | +-------+ +--------+---+---+ | Given | 10/05/19 | 1,000 | | | | | 19 8:08 | mcg | | | | | AM PDT | | | | +-------+ +--------+---+---+ +---+---+ | | | +---+---+ + +-------+ +-------+---+---+ | DULoxetine (CYMBALTA) DR | Given | 10/07/19 | 60 mg | | | | capsule 60 mg 60 mg, Oral, EVERY | | 19 8:00 | | | | | MORNING, First dose on Sat | | AM PDT | | | | | 10/03/18 at 0900, Do not open | | | | | | | capsule., | | | | | | + +-------+ +-------+---+---+ +-------+ +-------+---+---+ | Given | 10/06/19 | 60 mg | | | | | 19 8:30 | | | | | | AM PDT | | | | +-------+ +-------+---+---+ | Given | 10/05/19 | 60 mg | | | | | 19 8:08 | | | | | | AM PDT | | | | +-------+ +-------+---+---+ +---+---+ | | | +---+---+ + +-------+ +-------+---+ + | enoxaparin (LOVENOX) 40 mg/0.4 | Given | 10/07/19 | 40 mg | | Abdomen- | | mL injection 40 mg 40 mg, | | 19 8:01 | | | LLQ | | Subcutaneous, EVERY 24 HOURS | | AM PDT | | | | | (Daily), First dose on Sat | | | | | | | 10/03/18 at 0900 | | | | | | + +-------+ +-------+---+ + +-------+ +-------+---+ + | Given | 10/06/19 | 40 mg | | Abdomen- | | | 19 8:38 | | | RLQ | | | AM PDT | | | | +-------+ +-------+---+ + | Given | 10/05/19 | 40 mg | | Abdomen- | | | 19 11:18 | | | RLQ | | | AM PDT | | | | +-------+ +-------+---+ + +---+---+ | | | +---+---+ + +-------+ + +---+ + | insulin glargine (LANTUS) | Given | 10/04/19 | 10 Units | | Arm-Righ | | injection (vial) 10 Units 10 | | 19 10:04 | | | t Upper | | Units, Subcutaneous, ONCE, Sat | | AM PDT | | | | | 10/03/18 at 0945, For 1 dose, For | [...] | insulin glargine (LANTUS) | Given | 10/05/19 | 10 Units | | Arm-Righ | | injection (vial) 10 Units 10 | | 19 4:20 | | | t Upper | | Units, Subcutaneous, ONCE, Sun | | PM PDT | | | | | 10/04/18 at 1500, For 1 dose, For | | | [...] | insulin glargine (LANTUS) | Given | 10/04/19 | 35 Units | | Arm-Left | | injection (vial) 35 Units 35 | | 19 8:41 | | | Upper | | Units, Subcutaneous, EVERY | | PM PDT | | | | | MORNING, First dose on Sat | | | | | | | 10/03/18 at 0845, For subcutaneous | | | | | | | use only. Basal (long acting) | | | | | | | insulin. Only for use with U-100 | | | | | | | insulin syringe., If NPO: | | | | | | | Decrease dose, by: 25% | | | | | | + +-------+ + +---+ + +---+---+ | | | +---+---+ + +-------+ + +---+ + | insulin glargine (LANTUS) | Given | 10/06/19 | 40 Units | | Arm-Left | | injection (vial) 40 Units 40 | | 19 9:22 | | | Upper | | Units, Subcutaneous, EVERY | | PM PDT | | | | | MORNING, First dose (after last | | | | | | | modification) on 10/04/18 at | | | | | | [...] +-------+ + +---+ + | Given | 10/05/19 | 40 Units | | Arm-Righ | | | 19 8:45 | | | t Upper | | | PM PDT | | | | +-------+ + +---+ + +---+---+ | | | +---+---+ + +-------+ +---------+---+ + | insulin lispro (humaLOG) | Given | 10/07/19 | 6 Units | | Abdomen- | | injection (vial) 0-12 Units 0-12 | | 19 12:11 | | | RLQ | | Units, Subcutaneous, 4 TIMES | | PM PDT | | | | | DAILY WITH MEALS & NIGHTLY, First | | | | | | | dose on Fri10/02/18 at 2300, | | | | | | | [...] | | | | | | | [id number] Use NIGHT DOSE for | | | | | | | doses scheduled: HS, 3AM, | | | | | | | Nighttime [id number] If the BG is | | | [...] + +-------+ +---------+---+ + | Given | 10/06/19 | 4 Units | | Arm-Righ | | | 19 9:22 | | | t Upper | | | PM PDT | | | | +-------+ +---------+---+ + | Given | 10/06/19 | 6 Units | | Arm-Left | | | 19 5:20 | | | Upper | | | PM PDT | | | | +-------+ +---------+---+ + +---+---+ | | | +---+---+ + +-------+ +--------+---+---+ | levothyroxine (SYNTHROID) | Given | 10/07/19 | 75 mcg | | | | tablet 75 mcg 75 mcg, Oral, | | 19 7:50 | | | | | DAILY BEFORE BREAKFAST, First | | AM PDT | | | | | dose on 10/03/18 at 0730, Give | | | | | | | before breakfast., | | | | | | + +-------+ +--------+---+---+ +-------+ +--------+---+---+ | Given | 10/06/19 | 75 mcg | | | | | 19 6:31 | | | | | | AM PDT | | | | +-------+ +--------+---+---+ | Given | 10/05/19 | 75 mcg | | | | | 19 6:39 | | | | | | AM PDT | | | | +-------+ +--------+---+---+ +---+---+ | | | +---+---+ + +-------+ +-------+---+---+ | losartan (COZAAR) tablet 50 mg | Given | 10/07/19 | 50 mg | | | | 50 mg, Oral, EVERY MORNING, | | 19 8:00 | | | | | First dose on 10/03/18 at 0900 | | AM PDT | | | | + +-------+ +-------+---+---+ +-------+ +-------+---+---+ | Given | 10/06/19 | 50 mg | | | | | 19 8:31 | | | | | | AM PDT | | | | +-------+ +-------+---+---+ | Given | 10/05/19 | 50 mg | | | | | 19 8:08 | | | | | | AM PDT | | | | +-------+ +-------+---+---+ +---+---+ | | | +---+---+ + +---------+ +-----+ +---+ | magnesium sulfate 2 g/50 mL | New Bag | 10/03/19 | 2 g | 25 mL/hr | | | IVPB 2 g 2 g, Intravenous, | | 19 8:05 | | | | | Administer over 120 Minutes, | | PM PDT | | | | | ONCE, 10/02/18 at 2000, For 1 | | | | | | | dose, Maximum recommended | | | | | | | infusion rate = 1 gram/hour., | | | | | | + +---------+ +-----+ +---+ +---+---+ | | | +---+---+ + +-------+ +------+---+---+ | melatonin tablet 3 mg 3 mg, | Given | 10/07/19 | 3 mg | | | | Oral, NIGHTLY PRN, Insomnia, | | 19 12:17 | | | | | Starting 10/04/18 at 2156 | | AM PDT | | | | + +-------+ +------+---+---+ +-------+ +------+---+---+ | Given | 10/05/19 | 3 mg | | | | | 19 10:01 | | | | | | PM PDT | | | | +-------+ +------+---+---+ +---+---+ | | | +---+---+ + +-------+ +--------+---+---+ | methylPREDNISolone sodium | Given | 10/03/19 | 125 mg | | | | succinate (solu-MEDROL) 62.5 | | 19 6:07 | | | | | mg/mL injection 125 mg 125 mg, | | PM PDT | | | | | Intravenous, ONCE, 10/02/18 at | | | | | | | 1815, For 1 dose, Mix with 2 mL | | | | | | | provided diluent to make 62.5 | | | | | | | mg/mL., | | | | | | + +-------+ +--------+---+---+ +---+---+ | | | +---+---+ + +-------+ +-------+---+---+ | pantoprazole (PROTONIX) DR | Given | 10/07/19 | 40 mg | | | | tablet 40 mg 40 mg, Oral, DAILY | | 19 7:51 | | | | | BEFORE BREAKFAST, First dose on | | AM PDT | | | | | 10/03/18 at 0730, Indication: | | | | | | | GERD | | | | | | + +-------+ +-------+---+---+ +-------+ +-------+---+---+ | Given | 10/06/19 | 40 mg | | | | | 19 6:31 | | | | | | AM PDT | | | | +-------+ +-------+---+---+ | Given | 10/05/19 | 40 mg | | | | | 19 6:39 | | | | | | AM PDT | | | | +-------+ +-------+---+---+ +---+---+ | | | +---+---+ + +-------+ +------+---+---+ | polyethylene glycol (MIRALAX) | Given | 10/07/19 | 17 g | | | | powder 17 g 17 g, Oral, DAILY, | | 19 8:01 | | | | | First dose on 10/04/18 at | | AM PDT | | | | | 0900, Mix with 8 oz. water., | | | | | | + +-------+ +------+---+---+ +-------+ +------+---+---+ | Given | 10/06/19 | 17 g | | | | | 19 8:31 | | | | | | AM PDT | | | | +-------+ +------+---+---+ | Given | 10/05/19 | 17 g | | | | | 19 8:13 | | | | | | AM PDT | | | | +-------+ +------+---+---+ +---+---+ | | | +---+---+ + +-------+ +-------+---+---+ | predniSONE (DELTASONE) tablet | Given | 10/07/19 | 30 mg | | | | 30 mg 30 mg, Oral, DAILY, First | | 19 8:00 | | | | | dose (after last modification) on | | AM PDT | | | | | 10/05/18 at 0900 | | | | | | + +-------+ +-------+---+---+ +-------+ +-------+---+---+ | Given | 10/06/19 | 30 mg | | | | | 19 8:31 | | | | | | AM PDT | | | | +-------+ +-------+---+---+ +---+---+ | | | +---+---+ + +-------+ +-------+---+---+ | predniSONE (DELTASONE) tablet | Given | 10/05/19 | 40 mg | | | | 40 mg 40 mg, Oral, DAILY, First | | 19 8:08 | | | | | dose on Fri10/03/18 at 1315 | | AM PDT | | | | + +-------+ +-------+---+---+ +-------+ +-------+---+---+ | Given | 10/04/19 | 40 mg | | | | | 19 2:24 | | | | | | PM PDT | | | | +-------+ +-------+---+---+ +---+---+ | | | +---+---+ + +-------+ +-------+---+---+ | pregabalin (LYRICA) capsule 75 | Given | 10/07/19 | 75 mg | | | | mg 75 mg, Oral, 2 TIMES DAILY, | | 19 8:01 | | | | | First dose on Fri10/02/18 at 2300 | | AM PDT | | | | + +-------+ +-------+---+---+ +-------+ +-------+---+---+ | Given | 10/06/19 | 75 mg | | | | | 19 9:21 | | | | | | PM PDT | | | | +-------+ +-------+---+---+ | Given | 10/06/19 | 75 mg | | | | | 19 8:31 | | | | | | AM PDT | | | | +-------+ +-------+---+---+ +---+---+ | | | +---+---+ + +---------+ +--------+-------+---+ | sodium chloride 0.9% (NS) bolus | New Bag | 10/03/19 | 1,000 | 2000 | | | 1,000 mL 1,000 mL, Intravenous, | | 19 7:28 | mLs | mL/hr | | | Administer over 30 Minutes, | | PM PDT | | | | | ONCE, 10/02/18 at 1945, For 1 | | | | | | | dose | | | | | | + +---------+ +--------+-------+---+ +---+---+ | | | +---+---+ + +---------+ +---------+-------+---+ | sodium chloride 0.9% (NS) bolus | New Bag | 10/04/19 | 500 mLs | 250 | | | 500 mL 500 mL, Intravenous, | | 19 5:27 | | mL/hr | | | Administer over 2 Hours, ONCE, | | AM PDT | | | | | 10/03/18 at 0500, For 1 dose | | | | | | + +---------+ +---------+-------+---+ +---+---+ | | | +---+---+ + +---------+ +---+-------+---+ | sodium chloride 0.9% (NS) | New Bag | 10/03/19 | | 100 | | | infusion at 100 mL/hr, | | 19 6:08 | | mL/hr | | | Intravenous, CONTINUOUS, Starting | | PM PDT | | | | | 10/02/18 at 1815 | | | | | | + +---------+ +---+-------+---+ +---+---+ | | | +---+---+ + +---------+ +---+-------+---+ | sodium chloride 0.9% (NS) | New Bag | 10/05/19 | | 100 | | | infusion at 100 mL/hr, | | 19 12:27 | | mL/hr | | | Intravenous, CONTINUOUS, Starting | | AM PDT | | | | | Fri10/02/18 at 2300 | | | | | | + +---------+ +---+-------+---+ +---------+ +---+-------+---+ | New Bag | 10/04/19 | | 100 | | | | 19 2:30 | | mL/hr | | | | PM PDT | | | | +---------+ +---+-------+---+ +---+---+ | | | +---+---+ + +-------+ +--------+---+---+ | tamsulosin (FLOMAX) capsule 0.4 | Given | 10/06/19 | 0.4 mg | | | | mg 0.4 mg, Oral, NIGHTLY, First | | 19 9:20 | | | | | dose on Fri10/02/18 at 2300, May | | PM PDT | | [...] +-------+ +--------+---+---+ +-------+ +--------+---+---+ | Given | 10/05/19 | 0.4 mg | | | | | 19 8:46 | | | | | | PM PDT | | | | +-------+ +--------+---+---+ | Given | 10/04/19 | 0.4 mg | | | | [...]
--- OUTSIDE RECORDS SUMMARY | ~2019-02-17 | XMS | Encounter Summary ---
Demographics + + + | Address | [address] | | | [place] [address] | + + + | Home Phone | | + + + | Preferred Language | Unknown | + + + | Marital Status | | + + + | Muslim Affiliation | 1025 | + + + [...] Team Providers + +------+ + | Care Straw Hat Brim Raiser Operator Name | Role | Phone | [...] | | | thy | [place] | [address] | | | | | Procedures | [address] | Phone: | | | | | PET CT Skull | Phone: | [phone] | | | | | Base To Mid | [phone] | Fax: | | | | | Thigh PET | Fax: | [phone] | | | | | CT Limited | [phone] | | +--------+--------+ + + + + [...] | | | | [place], [place] | [address] | | | | | [address] | [phone] | | | | | [phone] | | | +--------+ + + + [...] [place] | | | | | | [address] | | | | | | [phone] | | | | | | | | +--------+---------+ + + + | 02/26/ | Office | Urology | Lillie Fowler | | | 2018 | Visit | | [address] | | | | | | [address] | | | | | | [place], [place] | | | | | | [address] | | | | | | [phone] | | | | | | | | +--------+---------+ + + + | 03/16/ | Office | Neurology | Theresa, | | | 2018 | Visit | | [address] | | | | | [address] [place], | | | | | | [place] [address] | | | | | | [phone] | | | | | | | [...] [place] | | | | | | [address] | | | | | | | [...] | | | care | | | Production Recovery Operator-C | | | | | | [...] | | | care | | | Production Recovery Operator-C | | | | | | [...] | | | care | | | Production Recovery Operator-C | | | | | | [...] | | | care | | | Production Recovery Operator-C | | | | | | [...] |7. Cardiomegaly. | | | |Dictated by: Tryo Lawrence | | | | | + [...]
--- OUTSIDE RECORDS SUMMARY | ~2019-02-17 | XMS | Encounter Summary ---
Demographics + + + | Address | [address] | | | [place] [address] | + + + | Home Phone [...] Team Providers + +------+ + | Care Social Service Liaison Name | Role | Phone | + [...] Description | +--------+--------+ + + + | 02/03/ | Refill | [place] [facility] | Horacio Silvestre, | Medication Refill; | | 2017 | | [facility] | [address] | Medication Refill | | | | [facility] | [facility], [place] | | | | | [address] [place], | [address] | | | | | [place] [address] | [phone] | | | | | [phone] | | | +--------+--------+ + + + [...] [place] | | | | | | [address] | | | | | | [phone] | | | | | | | | +--------+---------+ + + + | 02/26/ | Office | Urology | Lillie Fowler | | | 2018 | Visit | | [address] | | | | | | [address] | | | | | | [place], [place] | | | | | | [address] | | | | | | [phone] | | | | | | | | +--------+---------+ + + + | 03/16/ | Office | Neurology | Theresa, | | | 2018 | Visit | | [address] | | | | | [address] [place], | | | | | | [place] [address] | | | | | | [phone] | | | | | | | | +--------+---------+ + + + | 04/12/ | Office | Primary Care | Massimo Ramos | | | 2019 | Visit | | MD [facility] [address] | | | | | | [address] [place] | | | | | | [address] | | | | | | | | +--------+---------+ + + + | 10/03/ | Office | Neurology | Fabián Carias MD | | | 2019 | Visit | | [address] | | | | | | [place] | | | | | | [address] | | | | | | | [...] | | care | | | Clinical Care Leader-C | | | | | | | [...] | | care | | | Clinical Care Leader-C | | | | | | | [...] | | care | | | Clinical Care Leader-C | | | | | | | [...] | | care | | | Clinical Care Leader-C | | | | | | | [...] | | unspecified | + + | 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
--- OUTSIDE RECORDS SUMMARY | ~2019-02-17 | XMS | Encounter Summary ---
Demographics + + + | Address | [address] | | | [place] [address] | + + + | Home Phone [...] + + + | Author | [facility] | | | and [place] | + + + | Organization | [facility] | | | and [...] Team Providers + +------+ + | Care Local Operator Name | Role | Phone | [...] | | | | [address]IMAS [address] | [address] Phone: | | | | | | [address] | [phone] | | | | | | MARCELO LANGSTON | Fax: | | | | | | [address] | [phone] | | | | | | Phone: | | | | | | | [phone] | | | | | | | Fax: | | | | | | | [phone] | | +--------+--------+ + + + + [...] unspecified back | | | | [place] [address] | | pain laterality | | | | [phone] | | (Primary Dx); Memory | | [...] be different from the original. Patient Instructions [facility] Neurology Clinic Dr. Fabián Carias, Neurologist Date:09/01/2018 [...] le, and scrabble, other puzzle games like [employer], [employer]. Play computer/mobile applications such as [employer] and [employer] GAMES Continue Plavix 75 mg and Atorvastatin 10 mg daily stoke prophylaxis Discussed CBD as a oil or salve, and tincture Use can for ambulation and may require a rolling walker Vit E and Vit B complexes (Centrum plus or silver) Any Questions please call JAMAAL Marroquin or Dr. Carias at [facility] Neurology Clinic General Neck and Back Pain [...] are taking other medicines. You may use mwgl-yys-snnxqvp medicine to control pain, unless another pain [...] by your healthcare provider Date Last Reviewed: 10/06/201519999921-0682 [employer]. [address] [place] [address], [place] [address]. All righ ts reserved. This information is [...] your new [facility] healthcare provider. Ice Ice reduces muscle pain [...] use ice several times a day. Medicines Lqnb-jds-lrlvzqd pain relieversincludeacetaminophen and anti-inflammatory medicines, wh ich [...] a heating p ad. Date Last Reviewed: 09/05/201719992602-3970 [employer]. [address] [place] [address]. All righ ts reserved. This information is [...] changes. You will work closely with your [facility] provider to find a treatment plan [...] are needed. Resources For more information, contact: [place] [employer], ahma.memberclArizona [employer] or [phone] [place] [employer] Association, theacpa.org or [phone] Date Last Reviewed: 11/05/201619992291-8348 [employer]. [address] [place] [address]. All righ ts reserved. This information is [...] medicines for your pain. You may use xsin-exq-yhwshnd or prescription medici claudio. You may need [...] your needs. This may include: Stretching and sjsip-ng-aqcgpu exercises Low-impact exercise such as walking, biking, [...] more support and information, contact these groups: [place] [employer], www.aapainmanage.org [place] [employer] Medicine, www.painmed.org [place] [employer] Association, www.theacpa.org National Pain Foundation, www.thenationalpainfoundation.org Date Last Reviewed: 03/07/201719991763-5625 [employer]. [address] [place] [address]. All righ ts reserved. This information is [...] is ke eping you healthy over time.The cdtntrducqT3H (or glycated hemoglobin) test can help. Th [...] eAG less than 154 mg/dL. Or, your [facility] provider may want you to aim for an A1C of 6%. That s an eAG of 126 mg/dL. Glucose calculator Visithttp://professional.diabetes.org/diapro/glucose_calc for a chart that helps convert your A1C percentages into eAG numbers. Date Last Reviewed: 09/06/201519998889-5758 [employer]. [address] [place] [address]. All [facility] ts reserved. This information is not intended [...] acupuncture, massage, and others. Date Last Reviewed: 03/07/201719997650-6165 [employer]. [address] [place] [address]. All [facility] ts reserved. This information is not intended [...] massage, and other methods. Date Last Reviewed: 04/07/201719994602-9363 [employer]. [address] [place] [address]. [address] [facility] ts reserved. This information is not [...] AM PDT Patient: Geraldo Mcfadden Medical Record: [id number] Date of Services: 09/01/2018 Referring Doctor: Horacio [...] as acupuncture treatments, massage therapy, relaxation therapy, rvlt-zke-fjhytdk creams and patches, CBD, and cortisone shots. Patent lives in [place] and has difficulty in t ravel time. [...] options such as Ativan/l ight therapy and zvsn-aiv-pqfvtut creams and CBD oil or salve. His [...] can also use computer applications such as [employer] on line help him maintain his cognitive skills. I discussed about starting ch olinesterase inhibitors ,however, the patient's is taking so many medications and he prefer s just take multivitamins at this time. The patient and his are hoping once they sell their house in [place] that they can move in town and [...] CEREBELLAR EXAMINATION: There is no dysmetria on spxnew-hb-ubeh test. MISCELLANEOUS EXAM: Atraumatic, no evidence of [...] st enoses Gait disorder Plan: Patient Instructions [facility] Neurology Clinic Dr. Fabián Carias, Neurologist Date:09/01/2018 [...] le, and scrabble, other puzzle games like [employer], [employer]. Play computer/mobile applications such as [employer] and [employer] GAMES Continue Plavix 75 mg and Atorvastatin [...] call JAMAAL Marroquin or Dr. Carias at [facility] Neurology Clinic General Neck and Back Pain [...] are taking other medicines. You may use keue-tpv-fmpzoei medicine to control pain, unless another pain [...] by your healthcare provider Date Last Reviewed: 10/06/201519993001-1880 [employer]. [address] [place] [address], [place] [address]. All righ ts reserved. This information is [...] your new [facility] healthcare provider. Ice Ice reduces muscle pain [...] use ice several times a day. Medicines Pnqx-msx-tmlyvgt pain relieversincludeacetaminophen and anti-inflammatory medicines, wh ich [...] a heating p ad. Date Last Reviewed: 09/05/201719997976-9546 [employer]. [address] [place] [address], [place] [address]. All righ ts reserved. This information is [...] changes. You will work closely with your [facility] provider to find a treatment plan [...] are needed. Resources For more information, contact: [place] [employer], ahak.memberclAri[place] [employer].net or [phone] [place] [employer] Association, theacpa.org or [phone] Date Last Reviewed: 11/05/201619998674-6616 [employer]. [address] [place] [address], [place] [address]. All righ ts reserved. This information is [...] medicines for your pain. You may use oisy-rgu-ihelibq or prescription medici claudio. You may need [...] your needs. This may include: Stretching and egmwl-vq-truvkw exercises Low-impact exercise such as walking, biking, [...] more support and information, contact these groups: [place] [employer], www.aapainmanage.org [place] [employer] Medicine, www.painmed.org [place] [employer] Association, www.theacpa.org National Pain Foundation, www.thenationalpainfoundation.org Date Last Reviewed: 03/07/201719995591-9296 [employer]. [address] [place] [address]. All righ ts reserved. This information is [...] is ke eping you healthy over time.The ztsfrluanhP3U (or glycated hemoglobin) test can help. Th [...] eAG less than 154 mg/dL. Or, your [facility] provider may want you to aim for an A1C of 6%. That s an eAG of 126 mg/dL. Glucose calculator Visithttp://professional.diabetes.org/diapro/glucose_calc for a chart that helps convert your A1C percentages into eAG numbers. Date Last Reviewed: 09/06/201519991605-0273 [employer]. [address] [place] [address]. All righ ts reserved. This information is [...] acupuncture, massage, and others. Date Last Reviewed: 03/07/201719995949-7174 [employer]. [address] [place] [address]. All righ ts reserved. This information is [...] massage, and other methods. Date Last Reviewed: 04/07/201719993768-7773 [employer]. [address] [place] [address]. [address] [facility] ts reserved. This information is not intended as a substitute for professional medical care. Always follow your healthcare professional's instructions. Fabián Carias MD09/01/20189:13 Electronically signed NOTE: Part of this report was transcribed using voice recognition software. Every effort was made to ensure accuracy. However, inadvertent computerize brusher operator errors may be present documented in [...] [place] | | | | | | [address] | | | | | | [phone] | | | | | | | | +--------+---------+ + + + | 02/26/ | Office | Urology | Lillie Fowler | | | 2018 | Visit | | LILLIE Lopez [address] | | | | | | [address] | | | | | | [place] | | | | | | [address] | | | | | | [phone] | | | | | | | | +--------+---------+ + + + | 03/16/ | Office | Neurology | Theresa, | | | 2018 | Visit | | SHONDA M[address]ney [address] | | | [address] [place], | | | | | | [place] [address] | | | | | | [phone] | | | | | | | | +--------+---------+ + + + | 04/12/ | Office | Primary Care | Massimo Ramos | | | 2019 | Visit | | MD Fer [address] | | | | | | [address] [place] | | | | | | [address] | | | | | | | | +--------+---------+ + + + | 10/03/ | Office | Neurology | Fabián Carias MD | | | 2019 | Visit | | [address] | | | | | | [place] | | | | | | [address] [...] | | | care | | | Workday Director-C | | | | | | [...] | | | care | | | Workday Director-C | | | | | | [...] | | | care | | | Workday Director-C | | | | | | [...] | | | care | | | Workday Director-C | | | | | | [...]
--- OUTSIDE RECORDS SUMMARY | ~2019-02-17 | XMS | Encounter Summary ---
Demographics + + + | Address | [address] | | | [place] [address] | + + + | Home Phone [...] Providers + +------+ + | Care Physician Aide Name | Role | Phone | + [...] | +--------+ + + + + | 08/14/ | Telephone | [place] [facility] | Horacio Silvestre, | Medication Refill | | 2019 | | [facility] | DO [address] | | | | | [facility] | [facility], [place] | | | | | [address] [place], | [address] | | | | | [place] [address] | [phone] | | | | | [phone] | | | +--------+ + + + [...] [place] | | | | | | [address] | | | | | | [phone] | | | | | | | | +--------+---------+ + + + | 02/26/ | Office | Urology | Lillie Fowler | | | 2018 | Visit | | LILLIE Lopez [address] | | | | | | [address] | | | | | | [place], [place] | | | | | | [address] | | | | | | [phone] | | | | | | | | +--------+---------+ + + + | 03/16/ | Office | Neurology | Theresa, | | | 2018 | Visit | | SHONDA M[address] | | | | [address] [place], | | | | | | [place] [address] | | | | | | [phone] | | | | | | | | +--------+---------+ + + + | 04/12/ | Office | Primary Care | Massimo Ramos Pedro Luis | | | 2019 | Visit | | MD Fer [address] | | | | | | [place] | | | | | | [address] | | | | | | | | +--------+---------+ + + + | 10/03/ | Office | Neurology | Fabián Carias MD | | | 2019 | Visit | | [address] | | | | | | [place] | | | | | | [address] | | | | | | | [...] | | | care | | | Precipitate Washer-C | | | | | | [...] | | | care | | | Precipitate Washer-C | | | | | | [...] | | | care | | | Precipitate Washer-C | | | | | | [...] | | | care | | | Precipitate Washer-C | | | | | | [...]
--- OUTSIDE RECORDS SUMMARY | ~2019-02-17 | XMS | Encounter Summary ---
Demographics + + + | Address | [address] | | | [place] [address] | + + + | Home Phone [...] Team Providers + +------+ + | Care Relief Captain Name | Role | Phone | [...] + + | Closed | Specialty | Oncology / | Diagnoses | Luciano Diana | Rigoberto, | | | Services | Hematology | | Johnathan | Arnaud | | | Required | and Oncology | Leukocytosis | [address] | MD Satya | | | | | , | [address] | [address] | | | | | unspecified | [place], | [place], | | | | | type | [place] [address] | [place] [address] | | | | | Diaphoresis | Phone: | Phone: | | | | | | [phone] | [phone] | | | | | LEUKOCYTOSIS | Fax: | Fax: | | | | | , | [phone] | [phone] | | | | | UNSPECIFIED | | | | | | | TYPE | | | | | | | Procedures | | | | | | | New | | | | | | | Outpatient | | | | | | | visit | | | | | | | [address] | | | +--------+ + + + + + Reason for Visit + + + | Reason | Comments | + + + | Weakness | | + + + Encounter Details +--------+ + + + + | Date | Type | Department | Care Team | Description | +--------+ + + + + | 02/28/ | Emergency | [facility] | Luciano Diana | Leukocytosis, | | 2018 | | [facility] | MD Johnathan [address] | unspecified type | | | | CENTER [address] | [address] [place] | (Primary Dx); | | | | DR [place], [place] | [place] [address] | Diaphoresis; | | | | [address] | [phone] | Weakness of back | | | | [phone] | | | +--------+ + + + [...] + + + | Blood Pressure | 128/83 | 02/28/2018 1:21 PM | | | | | PST | | + + + + + | Pulse | 69 | 02/28/2018 1:21 PM | | | | | PST | | + + + + + | Temperature | 36.2 C (97.2 F) | 02/28/2018 10:13 AM | | | | | PST | | + + + + + | Respiratory Rate | 17 | 02/28/2018 12:47 PM | | | | | PST | | + + + + + | Oxygen Saturation | 94% | 02/28/2018 1:21 PM | | | | | PST | | + + + + + | Inhaled Oxygen | - | - | | | Concentration | | | | + + + + + | Weight | 93 kg (205 lb 0.4 | 02/28/2018 10:13 AM | | | | oz) | PST | | + + + + + | Height | 165.1 cm (5' 5") | 02/28/2018 10:13 AM | | | | | PST | | + + + + + | Body Mass Index | 34.12 | 02/28/2018 10:13 AM | | | | | PST [...] Instructions Instructions Page, Luciano Mann MD - 02/28/2018Expect a call from Dr. Franklin-Hematolog y Specialist to schedule a follow-up appointment within the next 10 days to ensure that he b lood count normalizes or followed up. Return in the meantime for any high fevers, shaking c hills, or loss of consciousness. documented in this encounter Medications at Time [...] + + + +---------+ + + | glucose blood | Apply 1 each | 300 | 3 | 02/25/20 | | | test strips | topically 3 times | each | | 18 | 8 | | (ACCU-CHEK ROSY | daily. | | | | | | PLUS) | | | | | | | stripIndications: | | | | | | | [...] | | | | use of insulin ([facility]) | | | | | | + + + +---------+ + + | Insulin | 1 each by Does not | 400 | 3 | 10/15/19 | | | Syringe-Needle U-100 | apply route 4 times | each | | 18 | 8 | | 31G X /16" 0.5 ML | daily (before meals | [...] | | | | use of insulin ([facility]) | | | | | | + [...] capsule by | 90 | 3 | 02/10/20 | | | (PRILOSEC) 20 mg | [...] tablet by | 84 | 0 | 02/12/20 | | | TABSIndications: | mouth 3 times daily | tablet | | 18 | 8 | | Multilevel | as needed for Pain. 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 | | | | | | | [...] [place] | | | | | | [address] | | | | | | [phone] | | | | | | | | +--------+---------+ + + + | 02/26/ | Office | Urology | Lillie Fowler | | | 2018 | Visit | | [address]IE [address] | | | | | | [address] | | | | | | [place], [place] | | | | | | [address] | | | | | | [phone] | | | | | | | | +--------+---------+ + + + | 03/16/ | Office | Neurology | Theresa, | | | 2018 | Visit | | [address] | | | | | | [address] [place], | | | | | | [place] [address] | | | | | | [phone] | | | | | | | [...] [place] | | | | | | [address] | | | | | | | | +--------+---------+ + + + + +------+--------+ + + | Name | Type | Priori | Associated Diagnoses | Date/Time | | | | ty | | | + +------+--------+ + + | ED INFORMATION | BRIT | Routin | | 02/28/2018 10:06 AM | | EXCHANGE | | e | | PST | + +------+--------+ + + + + +--------+ + + | Name | Type | Priori | Associated Diagnoses | Order Schedule | | | | ty | | | + + +--------+ + + | AMB Referral to CC | Outpatient | Routin | | Ordered: 02/28/2018 | | [facility] | Referral | e | | | + + +--------+ + [...] | | | care | | | Filter Assembler-C | | | | | | [...] | | | care | | | Filter Assembler-C | | | | | | [...] | | | care | | | Filter Assembler-C | | | | | | [...] | | | care | | | Filter Assembler-C | | | | | | [...] + | URINALYSIS WITH | STAT | 02/28/2018 | | Results for this | | MICROSCOPIC WITH | | 11:52 AM | | procedure are in the | | CULTURE IF INDICATED | | PST | | results section. | + +--------+ + + + | XR CHEST AP PORTABLE | STAT | 02/28/2018 | | Results for this | | | | 10:58 AM | | procedure are in the | | | | PST | | results section. | + +--------+ + + + | POC GLUCOSE | Routin | 02/28/2018 | | Results for this | | | e | 10:49 AM | | procedure are in the | | | | PST | | results section. | + +--------+ + + + | ECG 12 LEAD | STAT | 02/28/2018 | | Results for this | | | | 10:43 AM | | procedure are in the | | | | PST | | results section. | + +--------+ + + + | TROPONIN I | STAT | 02/28/2018 | | Results for this | | | | 10:34 AM | | procedure are in the | | | | PST | | results section. | + +--------+ + + + | DIFFERENTIAL, MANUAL | Routin | 02/28/2018 | | Results for this | | | e | 10:34 AM | | procedure are in the | | | | PST | | results section. | + +--------+ + + + | CBC WITH | STAT | 02/28/2018 | | Results for this | | DIFFERENTIAL | | 10:34 AM | | procedure are in the | | | | PST | | results section. | + +--------+ + + + | COMPREHENSIVE | STAT | 02/28/2018 | | Results for this | | METABOLIC PANEL | | 10:34 AM | | procedure are in the | | | | PST | | results section. | + +--------+ + + + | ED INFORMATION | Routin | 02/28/2018 | | | | EXCHANGE | e | 10:06 AM | | | | | | PST | | | + +--------+ + + + +---+--------+ | | | | | Proced | | | ure | | | Note - | | | Randa, | | | Lab In | | | | | | Hlseve | | | n - | | | 11/24/ | | | 2018 | | | 10:07 | | | AM PST | | [...] | | | FICATI | | | ON?11/ | | | 24/201 | | | 8 | | | 10:04? | | | MCFADDEN, | | | KENNET | | | H | | | J?MRN: | | | | | | [id number] | | | [id number] | | | ecurit | | | [...] | | | int | | | Nov | | | 24, | | | 2018 | | | [place] | | | [place] | | | [place]. [place] | | | [place] 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 No discrete airspace opacity | [facility] | | is identified. Dictated by: Massimo Alba Electronically | | | Signed by: Massimo Alba on 02/28/2018 12:31 PM | | + + + + + + | Narrative | Performed At | + + + | EXAMINATION: XR CHEST AP PORTABLE HISTORY: WEAKNESS | [facility] | | COMPARISON STUDY: January 09, 2018 FINDINGS: The lungs are well | | | ventilated. There is subtle asymmetric increased density of the left | | | hemithorax without discrete borders. This is likely positional | | | artifact. No pleural effusion. No pneumothorax. Heart size is | | | stable. No acute osseous process. | | + + + + + | Procedure Note | + + | Randa, Rad Results In - 02/28/2018 12:34 PM PST EXAMINATION:XR CHEST AP | | PORTABLEHISTORY:WEAKNESSCOMPARISON STUDY:January 09, 2018FINDINGS:The lungs are well | | ventilated. There is subtle asymmetric increased density of the left hemithorax without | | discrete borders. This is likely positional artifact. No pleural effusion. No | | pneumothorax. Heart size is stable. No acute osseous process.IMPRESSION: | | IMPRESSION:Persistent cardiomegaly. No discrete airspace opacity is identified.Dictated | | by: Massimo Hutchinsonam | |January 09, 2018 | | | |FINDINGS: | |The lungs are well ventilated. There is subtle asymmetric increased density of the left he mithorax without discrete borders. This is likely positional artifact. No pleural effusion . No pneumothorax. Heart size is stable. No acute osseous process. | | | |IMPRESSION: | |IMPRESSION: | |Persistent cardiomegaly. No discrete airspace opacity is identified. | | | |Dictated by: Massimo Alba | | | | | + + + +---------+ + + | Performing | Address | City/State/Zipcode | Phone Number | | Organization | | | | + +---------+ + + | [facility] | | | | + +---------+ + + POC Glucose (02/28/2018 10:49 AM PST) + +---------+ + + + [...] + + | [facility] | [address] | [place] [address] | [phone] | | H[facility] | | | | + + + + + ECG 12 lead (02/28/2018 10:43 AM PST) + + | Specimen | + + | | + + + + + | Narrative | Performed At | + + + | Heart Rate: 74 | [facility] | | bpmQRS Interval: 98 msQT Interval: 380 msQTC Interval: 422 msP [place]: | TRACEMASTER | | 9 degQRS [place]: -21 degT Wave [place]: 11 degP-R Interval: 196 msec- | | | BORDERLINE ECG -SINUS RHYTHM [Now Present]BORDERLINE LEFT AXIS | | | DEVIATION [Now Present]CONSIDER RVH OR POSTERIOR INFARCT [Less | | | Prom.]SIGNIFICANT RHYTHM AND ECG CONTOUR CHANGES | | |T Wave [place]: 11 deg | | |P-R Interval: 196 msec | | |- BORDERLINE ECG - | | |SINUS RHYTHM [Now Present] | | |BORDERLINE LEFT AXIS DEVIATION [Now Present] | | |CONSIDER RVH OR POSTERIOR INFARCT [Less Prom.] | | |SIGNIFICANT RHYTHM AND ECG CONTOUR CHANGES | | + + + + +---------+ + + | Performing | Address | City/State/Zipcode | Phone Number | | Organization | | | | + +---------+ + + | [facility] | | | | + +---------+ + + Differential, Manual (02/28/2018 10:34 AM PST) + + + + + + | Component | Value | Ref Range | Performed | Pathologist | | | | | At | Signature | + + + + + + | % Segmented | 69.0 | 42.0 - 76.0 % | [place] [...] + + + | % Monocytes | 14.0 (H) | 3.0 - 13.0 % | [...] + + + + | % | 3.0 (HH) | <0.0 % | [facility] | | | Promyelocyt | | | [facility] | | | es | | | HOSPITAL | | | | | | LABORATORY | | + + + + + + | % Bands | 3.0 | 0.0 - 7.0 % | [facility] | | | | | | [facility] | | | | | | [facility] | | | | | | LABORATORY | | + + + + + + | Absolute | 16.15 (H) | 2.80 - 7.70 | [place] | | | Segmented | | K/uL | [facility] | | | Neutrophils | | | HOSPITAL | | | | | | LABORATORY | | + + + + + + | Absolute | 2.34 | 1.20 - 3.30 | [place] | | | Lymphocytes | | K/uL | [facility] | | | | | | [facility] | | | | | | LABORATORY | | + + + + + + | Absolute | 3.28 (H) | 0.00 - 0.80 | [place] | | | Monocytes | | K/uL | [facility] | | | | | | [facility] | | | | | | LABORATORY | | + + + + + + | Absolute | 0.23 | K/uL | [facility] | | | Metamyelocy | | | [facility] | | | hermes | | | [facility]OSPITAL | | | | | | LABORATORY | | + + + + + + | Absolute | 0.70 | K/uL | [facility] | | | Promyelocyt | | | [facility] | | | es | | | HOSPITAL | | | | | | LABORATORY | | + + + + + + | Absolute | 0.70 (H) | 0.00 - 0.15 | [place] [...] + + | [facility] | [address] | [place] [address] | [phone] | | HOSPITAL [facility] | | | | + + + + + Troponin I (02/28/2018 10:34 AM PST) + +-------+ + + + [...] | cutoff point for the diagnosis of [place] is 0.8 ng/mL for the Troponin I | | | method. | | + + + + + + + + | Performing | Address | City/State/Zipcode | Phone Number | | Organization | | | | + + + + + | [facility] | [address] | [place] [address] | [phone] | | H[facility]PITAL [facility] | | | | + + + + + Comprehensive Metabolic Panel (02/28/2018 10:34 AM PST) + + + + + [...] + + + + | Glucose | 155 (H) | 70 - 110 mg/dL | [facility] | | | | | [facility] | | [facility] | | | | | | [facility]AT[facility] | | + + + + + + | BUN | 42 (H) | 5 - 26 mg/dL | [facility] | | | | | [facility] | | | | | [facility] | | | | | | LAB[facility]ATORY | | + + + + + + | Creatinine | 1.33 | 0.70 - 1.40 | [place] | | | | | mg/dL | [facility] | | | | | | [facility] | | | | | | LABORATORY | | + + + + + + | eGFR if not | 52 (L)Comment: | >=60 | [facility] | | | | GLOMERULAR FILTRATION | mL/min/1.73m2 | [facility] | | | [facility] | RATE,ESTIMATED | | HOSPITAL | | | | mL/min/1.41l2Yrjn than | | LABORATORY | | | [...] + + + + | Total | 6.7 | 6.6 - 8.5 g/dL | [facility] [...] + + + + | ALT | 38 | 16 - 63 U/L | [facility] [...] + + + + | Globulin | 3.1 | 2.4 - 4.5 g/dL | [place] [...] + + + + | BUN/Creatin | 31.6 (H) | 7.0 - 24.0 | [place] [...] + + | [facility] | [address] | [place] [address] | [phone] | | HOSPITAL [facility] | | | | + + + + + CBC with Differential (02/28/2018 10:34 AM PST) + + + + + + | Component | Value | Ref Range | Performed | Pathologist | | | | | At | Signature | + + + + + + | WBC | 23.4 (H) | 4.6 - 10.5 K/uL | [facility] | | | | | [facility] | | | | [facility] | | | | | | [facility]ATORY | | + + + + + + | RBC | 4.58 | 4.36 - 5.83 | [place] | [...] + + + + | Hematocrit | 41.5 | 39.0 - 51.9 % | [facility] | | | | | | [facility] | | | | | | [facility] | | | | | | LAB[facility]ATORY | | + + + + + + | MCV | 90.6 | 82.0 - 96.0 fL | [place] [...] + + + + | RDW-CV | 16.3 | 0.0 - 17.0 % | [facility] | | | | | | [facility] | | | | | | [facility] | | | | | | LAB[facility]ATORY | | + + + + + + | Platelet | 164 | 150 - 450 K/uL | [facility] [...] + + | [facility] | [address] | [place] [address] | [phone] | | HOSPITAL [facility] | | | | + + + + + documented in this encounter Visit Diagnoses + + | Diagnosis | + + | Leukocytosis, unspecified type - Primary | + + | Diaphoresis Generalized hyperhidrosis | + + | Weakness of back | + + documented in this encounter Administered Medications + +---------+ +--------+-------+------+ | Medication Order | MAR | Action | Dose | Rate | Site | | | Action | Date | | | | + +---------+ +--------+-------+------+ | lactated ringers (LR) bolus | New Bag | 02/29/20 | 1,000 | 2000 | | | 1,000 mL 1,000 mL, Intravenous, | | 18 10:36 | mLs | mL/hr | | | Administer over 30 Minutes, ONCE, | | AM PST | | | | | 02/28/18 at 1045, For 1 dose | | | | | | + +---------+ +--------+-------+------+ +---+---+ | | | +---+---+ documented in this encounter
--- OUTSIDE RECORDS SUMMARY | ~2019-02-17 | XMS | Encounter Summary ---
Demographics + + + | Address | [address] | | | [place] [address] | + + + | Home Phone | | + + + | Preferred Language | Unknown | + + + | Marital Status | | + + + | Sabianism Affiliation | 1025 | + + + | Race | Unknown | + + + | Ethnic Group | Unknown | + + + Author + + + | Author | [facility] | | | and [place] | + + + | Organization | [facility] | | [...] Providers + +------+ + | Care Golf Course Architect Name | Role | Phone | [...] | +--------+ + + + + | 09/02/ | Telephone | [facility] | Fabián Carias MD | Results | | 2019 | | HOSPITAL [facility] | [address] | | | | | CLINIC [address] | [place] | | | | | DR [address], | [address] | | | | | [place] [address] | | | | | | [phone] | | | +--------+ + + + [...] [place] | | | | | | [address] | | | | | | [phone] | | | | | | | | +--------+---------+ + + + | 02/26/ | Office | Urology | Lillie Fowler | | | 2018 | Visit | | [address] | | | | | | [address] | | | | | | [place] | | | | | | [address] | | | | | | [phone] | | | | | | | | +--------+---------+ + + + | 03/16/ | Office | Neurology | Theresa, | | | 2018 | Visit | | [address] | | | | | [address] [place], | | | | | | [place] [address] | | | | | | [phone] | | | | | | | | +--------+---------+ + + + | 04/12/ | Office | Primary Care | Massimo Ramos | | | 2019 | Visit | | MD Fer [address] | | | | | | [place] | | | | | | [address] | | | | | | | | +--------+---------+ + + + | 10/03/ | Office | Neurology | Fabián Carias MD | | | 2019 | Visit | | [address] | | | | | | [place] | | | | | | [address] | | | | | | | [...] | | care | | | Director Title-C | | | | | | | [...] | | care | | | Director Title-C | | | | | | | [...] | | care | | | Director Title-C | | | | | | | [...] | | care | | | Director Title-C | | | | | | | [...]
--- OUTSIDE RECORDS SUMMARY | ~2019-02-17 | XMS | Encounter Summary ---
Demographics + + + | Address | [address] | | | [place] [address] | + + + | Home Phone [...] Providers + +------+ + | Care Commercial Internship Name | Role | Phone | + [...] | | [place], [place] | [place] [address] | Pneumonia of left | | 2019 | | [address] | [phone] | upper lobe due to | | | | [phone] | | infectious organism | | | | | Fernando Ibrahim MD | ([facility]) | | | | | [address] [place] | | | | | | [place] [address] | | | | | | [phone] | | | | | | | [...] nonseasonal allergic rhinitis due to pollen 03/07/2017 meterman current use of aspirin 03/07/2017 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, left [facility] current use of opiate analgesic 06/27/2017 Current use of beta marly 06/30/2017 Panlobular emphysema 08/08/2017 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 [facility] his blood pressure was low at [...] of 1.9. 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 Culture, Blood [[id number]] (Normal) Collected: 05/26/18 1854 Order Status: Completed Lab Status: Preliminary result Updated: 05/27/18720 Specimen: Blood from Peripheral Blood Culture No growth: Monitored continually by instrument for 5 days Culture, Blood [[id number]] (Normal) Collected: 05/26/18 1820 Order Status: Completed [...] be sent through Care Everywhere.Renal Insuffici ency ([place]izen [place])Blood Sugar, How to Check Your ([place])Hypertension, Established ([place])Hig h Blood Pressure (Hypertension), Discharge Instructions ([place])documented in this encounte r Medications at Time [...] take the short acting insulin. Please see IC ENGINEER med list for updated medication list. Electronically [...] [place] | | | | | | [address] | | | | | | [phone] | | | | | | | | +--------+---------+ + + + | 02/26/ | Office | Urology | Lillie Fowler | | | 2018 | Visit | | [address]ILLIE Lopez [address] | | | | | | [address] | | | | | | [place], [place] | | | | | | [address] | | | | | | [phone] | | | | | | | | +--------+---------+ + + + | 03/16/ | Office | Neurology | Theresa, | | | 2018 | Visit | | [address] | | | | [address] [place], | | | | | | [place] [address] | | | | | | [phone] | | | | | | | | +--------+---------+ + + + | 04/12/ | Office | Primary Care | Massimo Ramos | | | 2019 | Visit | | MD Fer [address] | | | | | | [place] | | | | | | [address] | | | | | | | | +--------+---------+ + + + | 10/03/ | Office | Neurology | Fabián Carias MD | | | 2020 | Visit | | [address] | | | | | | [place] | | | | | | [address] | | | | | | | [...] | | care | | | Commercial Cleaner-C | | | | | | [...] | | care | | | Commercial Cleaner-C | | | | | | [...] | | care | | | Commercial Cleaner-C | | | | | | [...] | | care | | | Commercial Cleaner-C | | | | | | [...] J?MRN: | | | | | | [id number] | | | [id number] | | | riteri | | | [...] | | | [place] | | | Advertising Solicitor | | | al | | | [...] | | | ent/[id number] | | | [id number] | | | -[id number] | | | [...] + + | [facility] | [address] | [place] [address] | [phone] | | HOSPITAL [facility]ORY | | | [...] + + | [facility] | [address] | [place] [address] | [phone] | | HOSPITAL [facility] | | | [...] + + | [facility] | [address] | [place] [address] | [phone] | | HOSPITAL [facility]ORY | | | [...] + + | [facility] | [address] | [place] [address] | [phone] | | HOSPITAL [facility] | | | [...] | mL/min/1.73m2 | [facility] | | | [facility] | | [facility] | | | [...] + + | [facility] | [address] | [place] [address] | [phone] | | HOSPITAL [facility]ORY | | | [...] + + | [facility] | [address] | [place] [address] | [phone] | | HOSPITAL [facility] | | | [...] + + | [facility] | [address] | [place] [address] | [phone] | | HOSPITAL [facility] | | | [...] + + | [facility] | [address] | [place] [address] | [phone] | | HOSPITAL [facility] | | | [...] WGR | | Interval: 444 ms P [place]: 17 deg QRS [place]: -41 deg T Wave [place]: -5 | TRACEMASTER | | deg P-R [...] + + | [facility] | [address] | [place] [address] | [phone] | | HOSPITAL LAB[facility] | | | [...] + + | [facility] | [address] | [place] [address] | [phone] | | HOSPITAL [facility] | | | [...] + + | [facility] | [address] | [place] [address] | [phone] | | HOSPITAL [facility] | | | [...] + + | [facility] | [address] | [place] [address] | [phone] | | HOSPITAL [facility] | | | [...] | cutoff point for the diagnosis of [place] is 0.8 ng/mL for the Troponin I | | | method. | | + + + + + + + + | Performing | Address | City/State/Zipcode | Phone Number | | Organization | | | | + + + + + | [facility] | [address] | [place] [address] | [phone] | | HOSPITAL [facility] | | | [...] | mL/min/1.73m2 | [facility] | | | [facility] | RATE,ESTIMATED | | [facility]OSPITAL | | | | mL/min/1.12m1Lfzg than | | LABORATORY | | | [...] + + | [facility] | [address] | [place] [address] | [phone] | | [facility] | | | [...] + + | [facility] | [address] | [place] [address] | [phone] | | [facility] | | | [...] - 1.030 | [facility] | | | [place] | | | [facility] | | | [...] + + | [facility] | [address] | [place] [address] | [phone] | | [facility] | | | [...] scheduled: | | | AC, NPO, Daytime 7383-9271 Use | | | NIGHT DOSE for doses scheduled: | | | HS, 3AM, Nighttime 1076-7477 | | | Only for use with [...]
--- OUTSIDE RECORDS SUMMARY | ~2019-02-17 | XMS | Encounter Summary ---
Demographics + + + | Address | [address] | | | [place] [address] | + + + | Home Phone [...] Team Providers + +------+ + | Care Light Industrial Supervisor Name | Role | Phone | [...] Medication Refill | | 2017 | | [facility] | DO [address] | | | | | MEDICAL CLIN[facility] [address] | [facility], [place] | | | | | [address] [place], | [address] | | | | | [place] [address] | [phone] | | | | | [phone] | | | +--------+--------+ + + + [...] [place] | | | | | | [address] | | | | | | [phone] | | | | | | | | +--------+---------+ + + + | 02/26/ | Office | Urology | Lillie Fowler | | | 2018 | Visit | | LILLIE Lopez [address] | | | | | | [address] | | | | | | [place], [place] | | | | | | [address] | | | | | | [phone] | | | | | | | | +--------+---------+ + + + | 03/16/ | Office | Neurology | Theresa, | | | 2018 | Visit | | [address] | | | | | | [address] [place], | | | | | | [place] [address] | | | | | | [phone] | | | | | | | | +--------+---------+ + + + | 04/12/ | Office | Primary Care | Massimo Ramos | | | 2019 | Visit | | MD Fer [address] | | | | | | [address] [place] | | | | | | [address] | | | | | | | | +--------+---------+ + + + | 10/03/ | Office | Neurology | Fabián Carias MD | | | 2019 | Visit | | [address] | | | | | | [place] | | | | | | [address] | | | | | | | [...] | | | care | | | Laborer Car Barn-C | | | | | | | [...] | | | care | | | Laborer Car Barn-C | | | | | | | [...] | | | care | | | Laborer Car Barn-C | | | | | | | [...] | | | care | | | Laborer Car Barn-C | | | | | | | linical | + +--------+ +---+-----+ + + + | Note: Pt will | | check CBG's daily x1 | | Pt will take Lantis as | | prescribed | + + documented as of this encounter Visit Diagnoses Not on filedocumented in this encounter"
--- OUTSIDE RECORDS SUMMARY | ~2019-02-17 | XMS | Encounter Summary ---
Demographics + + + | Address | [address] | | | [place] [address] | + + + | Home Phone [...] Team Providers + +------+ + | Care Team Facilitator Name | Role | Phone | + [...] Tereza KAUFFMAN | | | | | [phone] | [place] [address] | | +--------+ + + + + [...] [place] | | | | | | [address] | | | | | | [phone] | | | | | | | | +--------+---------+ + + + | 02/26/ | Office | Urology | Lillie Fowler | | | 2018 | Visit | | [address]IE [address] | | | | | | [address] | | | | | | [place], [place] | | | | | | [address] | | | | | | [phone] | | | | | | | | +--------+---------+ + + + | 03/16/ | Office | Neurology | Theresa, | | | 2018 | Visit | | [address] | | | | | | [address] [place], | | | | | | [place] [address] | | | | | | [phone] | | | | | | | | +--------+---------+ + + + | 04/12/ | Office | Primary Care | Massimo Ramos | | | 2019 | Visit | | MD Fer [address] | | | | | | [place] | | | | | | [address] | | | | | | | | +--------+---------+ + + + | 10/03/ | Office | Neurology | Fabián Carias MD | | | 2019 | Visit | | [address], [place] | | | | | | [place], [place] | | | | | | [address] | | | | | | | [...] | | | care | | | Dobby Loom Chain Pegger-C | | | | | | | [...] | | | care | | | Dobby Loom Chain Pegger-C | | | | | | | [...] | | | care | | | Dobby Loom Chain Pegger-C | | | | | | | [...] | | | care | | | Dobby Loom Chain Pegger-C | | | | | | | [...] encounter Results XR Chest AP Portable (07/24/2018 11:45 AM [...]
--- OUTSIDE RECORDS SUMMARY | ~2019-02-17 | XMS | Encounter Summary ---
Demographics + + + | Address | [address] | | | [place] [address] | + + + | Home Phone [...] Team Providers + +------+ + | Care Bootmaker Name | Role | Phone | + [...] | Procedures | [address] | [address] | | | | | ECHO | [place], [place] | Phone: | | | | | Complete | [address] | [phone] | | | | | | Phone: | Fax: | | | | | | [phone] | [phone] | | | | | | Fax: | | | | | | | [phone] | | +--------+--------+ + + + + [...] | Procedures | [address] | [address] | | | | | MRI Brain | [place], [place] | Phone: | | | | | wo Contrast | [address] | [phone] | | | | | | Phone: | Fax: | | | | | | [phone] | [phone] | | | | | | Fax: | | | | | | | [phone] | | +--------+--------+ + + + + [...] | | | DR [place], | [address] | diabetes mellitus | | | | [place] [address] | | with diabetic | | | | [phone] | | polyneuropathy, with | | | | | | long-term current | | | | | | use of insulin | | | | | | ([facility]); Syncope and | | | | [...] be different from the original. Patient Instructions [facility] Neurology Clinic Dr. Jalyn Carias, Neurologist [...] le, and scrabble, other puzzle games like Acumen, Paymo. Play computer/mobile applications such as Azima and [employer] Discontinue ASA switch to Plavix 75 mg daily for stroke prophylaxis Continue Lyrica for neuropathic pain Any Questions please call JAMAAL Marroquin or Dr. Carias at [facility] Neurology Clinic General Neck and Back [...] are taking other medicines. You may use hejg-cdp-bulzzkb medicine to control pain, unless another pain [...] by your healthcare provider Date Last Reviewed: 10/06/201519998341-9569 The [employer]. [address] [place] [address]. All righ ts reserved. This information is [...] use ice several times a day. ?Medicines Krdx-qnr-hmoyrho pain relievers can includeacetaminophen and anti-inflammatory medicines, [...] a heating p ad. Date Last Reviewed: 12/06/201419991058-2014 [employer]. [address] [place] [address]. All righ ts reserved. This information is [...] changes. You will work closely with your [facility] provider to find a treatment plan [...] are needed. Resources For more information, contact: [employer] Headache and Migraine Associationjames.[email or web address], [employer]. or [phone] [employer] Chronic Pain Association, theacpa.org or [phone] Date Last Reviewed: 11/05/201619993710-2820 [employer]. [address] [place] [address]. All [facility] ts reserved. This information is not [...] medicines for your pain. You may use zkos-uwb-cjoznpd or prescription medici claudio. You may need [...] your needs. This may include: Stretching and apsed-pq-xwiaak exercises Low-impact exercise such as walking, biking, [...] more support and information, contact these groups: [place] Academy of Pain Management, www.aapainmanage.org [place] Academy of Pain Medicine, www.painmed.org [employer] Chronic Pain Association, www.theacpa.org National Pain Foundation, www.thenationalpainfoundation.org Date Last Reviewed: 03/07/201719994013-8892 [employer]. [address] [place] [address], [place] [address]. All righ ts reserved. This information is [...] and need help quitting, talk to your [facility]. Testing your blood sugar is the [...] cut down on salt. A dietitian or school vocational educator can help form a meal plan that [...] lab tests as scheduled. Date Last Reviewed: 08/24/201519994922-7594 [employer]. [address] [place] [address], [place] [address]. All righ ts reserved. This information is not intended as a substitute for professional medical care. Always follow your healthcare professional's instructions. documented in this encounter Progress Notes Jalyn Carias MD - 05/19/2018 2:45 PM PST Patient: Geraldo Mcfadden Medical Record: [id number] Date of Services: 05/19/2018 Referring Doctor: Horacio [...] acupuncture treatments, massage therapy, relaxation therapy, ove x-obw-mcuikli creams and patches, and cortisone shots. Patient [...] He was seen in the ER at [facility] and had a CT scan of [...] and oriented to time, place, and person. [facility] is fluent. Memory, attention, comprehension, and general [...] CEREBELLAR EXAMINATION: There is no dysmetria on txixoe-lu-btjy test. MISCELLANEOUS EXAM: Atraumatic, no evidence of [...] degenerative spine disease, acitve Plan: Patient Instructions [facility] Neurology Clinic Dr. Jalyn Carias, Neurologist [...] such as cross word puzz le, and scrPRNMS INVESTMENTSble, other puzzle games like Acumen, Paymo. Play computer/mobile applications such as Azima and [employer] Discontinue ASA switch to Plavix 75 mg daily for stroke prophylaxis Continue Lyrica for neuropathic pain Any Questions please call JAMAAL Marroquin or Dr. Carias at [facility] Neurology Clinic General Neck and Back [...] are taking other medicines. You may use oinc-iwo-uazlemk medicine to control pain, unless another pain [...] by your healthcare provider Date Last Reviewed: 10/06/201519993287-7892 The [employer]. [address] [place] [address], [place] [address]. All righ ts reserved. This information is [...] use ice several times a day. ?Medicines Yfsf-wqy-hroqyki pain relievers can includeacetaminophen and anti-inflammatory medicines, [...] a heating p ad. Date Last Reviewed: 12/06/201419991184-5909 [employer] [place] [address], [place] [address]. All [facility] ts reserved. This information is not [...] changes. You will work closely with your [facility] provider to find a treatment plan [...] are needed. Resources For more information, contact: [employer] Headache and Migraine Association, [email or web address] or [phone] [employer] Chronic Pain Association, theacpa.org or 299-983-2300 Date Last Reviewed: 11/05/201619997523-8546 The [employer]. [address] [place] [address], [place] [address]. All righ ts reserved. This information is [...] medicines for your pain. You may use oatf-nos-nxcesqy or prescription medici claudio. You may need [...] your needs. This may include: Stretching and oievd-yi-cnwugx exercises Low-impact exercise such as walking, biking, [...] more support and information, contact these groups: [employer] Academy of Pain Management, www.aapainmanage.org Mac[place] Academy of Pain Medicine, www.painmed.org [employer] Chronic Pain Association, www.theacpa.org National Pain Foundation, www.thenationalpainfoundation.org Date Last Reviewed: 03/07/201719994422-5698 The [employer]. [address] [place] [address], [place] [address]. All righ ts reserved. This information is [...] and need help quitting, talk to your [facility]. Testing your blood sugar is the [...] cut down on salt. A dietitian or school vocational educator can help form a meal plan that works for you even if you are on a low budget. Being activecan help reduce your weight, strengthen your heart, and lower your lipid l evels and blood pressure. Exercise and activity are good for your whole body. Talk to your [facility] team about increasing your activity safely over time. Keeping your appointmentswith your healthcare provider helps you stay healthy. Go in f or checkups and lab tests as scheduled. Date Last Reviewed: 08/24/201519998048-3665 The [employer]. [address] [place] [address], [place] [address]. All righ ts reserved. This information is not intended as a substitute for professional medical care. Always follow your healthcare professional's instructions. Jalyn Carias MD05/19/201815:18 Electronically signed NOTE: Part of this report was transcribed using voice recognition software. Every effort was made to ensure accuracy. However, inadvertent computerize airborne mission systems superintendent errors may be present documented in this [...] [place] | | | | | | [address] | | | | | | [phone] | | | | | | | | +--------+---------+ + + + | 02/26/ | Office | Urology | Lillie Fowler | | | 2018 | Visit | | LILLIE Lopez [address] | | | | | | [address] | | | | | | [place] | | | | | | [address] | | | | | | [phone] | | | | | | | | +--------+---------+ + + + | 03/16/ | Office | Neurology | Theresa, | | | 2018 | Visit | | [address] | | | | | | [address] [place], | | | | | | [place] [address] | | | | | | [phone] | | | | | | | | +--------+---------+ + + + | 04/12/ | Office | Primary Care | Massimo Ramos | | | 2019 | Visit | | MD Fer [address] | | | | | | [address] [place], [place] | | | | | | [address] | | | | | | | | +--------+---------+ + + + | 10/03/ | Office | Neurology | Jalyn Carias MD | | | 2019 | Visit | | [address] | | | | | | [place] | | | | | | [address] | | | | | | | [...] | | care | | | Cnc Machine Programmer-C | | | | | | | [...] | | care | | | Cnc Machine Programmer-C | | | | | | | [...] | | care | | | Cnc Machine Programmer-C | | | | | | | [...] | | care | | | Cnc Machine Programmer-C | | | | | | | [...] JALYN CARIAS M.D. | | | Neurologist [phone] Electronically signed NOTE: Part of | | | this report was transcribed using voice recognition | | | software. Every effort was made to ensure | | | accuracy. However, inadvertent computerize | | | airborne mission systems superintendent errors may be present | | + [...] no evidence of restricted | | diffusion.The reinoso-white matter interface is intact.No acute intracranial [...]
--- OUTSIDE RECORDS SUMMARY | ~2019-02-17 | XMS | Encounter Summary ---
Demographics + + + | Address | [address] | | | [place] [address] | + + + | Home Phone [...] Team Providers + +------+ + | Care Construction Driller Name | Role | Phone | + [...] Description | +--------+--------+ + + + | 09/21/ | Refill | [place] | Horacio Silvestre, | Medication Refill | | 2019 | | [facility] | [address] | | | | | MEDICAL CLIN[address] | [facility], [place] | | | | | [address] [place], | [address] | | | | | [place] [address] | [phone] | | | | | [phone] | | | +--------+--------+ + + + [...] [place] | | | | | | [address] | | | | | | [phone] | | | | | | | | +--------+---------+ + + + | 02/26/ | Office | Urology | Lillie Fowler | | | 2018 | Visit | | [address]ILLIE [address] | | | | | | [address] | | | | | | [place], [place] | | | | | | [address] | | | | | | [phone] | | | | | | | | +--------+---------+ + + + | 03/16/ | Office | Neurology | Theresa, | | | 2018 | Visit | | [address] | | | | | | [address] [place], | | | | | | [place] [address] | | | | | | [phone] | | | | | | | | +--------+---------+ + + + | 04/12/ | Office | Primary Care | Massimo Ramos | | | 2019 | Visit | | MD Fer [address] | | | | | | [place] | | | | | | [address] | | | | | | | | +--------+---------+ + + + | 10/03/ | Office | Neurology | Fabián Carias MD | | | 2019 | Visit | | [address] | | | | | | [place] | | | | | | [address] | | | | | | | [...] | | care | | | Chief Compliance Officer-C | | | | | | [...] | | care | | | Chief Compliance Officer-C | | | | | | [...] | | care | | | Chief Compliance Officer-C | | | | | | [...] | | care | | | Chief Compliance Officer-C | | | | | | | linical | + +--------+ +---+-----+ + + + | Note: Pt will | | check CBG's daily x1 | | Pt will take Lantis as | | prescribed | + + documented as of this encounter Visit Diagnoses + + | Diagnosis | + + | Insomnia secondary to chronic pain Other chronic pain | + + documented in this encounter Additional Health Concerns + + + + | Infection | Noted Time | Resolved Time | + + + + | Methicillin-resistant Staphylococcus aureus | 07/20/2018 4:00 PM | | | | PDT | | + + + + documented as of this encounter"
--- OUTSIDE RECORDS SUMMARY | ~2019-02-17 | XMS | Encounter Summary ---
Demographics + + + | Address | [address] | | | [place] [address] | + + + | Home Phone [...] Team Providers + +------+ + | Care Intermodal Customer Service Name | Role | Phone | [...] | +--------+ + + + + | 03/11/ | Telephone | [place] [facility] | Horacio Silvestre, | Medication Refill | | 2018 | | [facility] | DO [address] [place] | | | | | MEDICAL CLIN[facility] [address] | [facility], [place] | | | | | [address] [place], | [address] | | | | | [place] [address] | [phone] | | | | | [phone] | | | +--------+ + + + [...] Office | General Surgery | Bello De O[place]aw | | | 2019 | Visit | | DO Jalen [address] | | | | | | [address] | | | | | | [place], [place] | | | | | | [address] | | | | | | [phone] | | | | | | | | +--------+---------+ + + + | 02/26/ | Office | Urology | Lillie Fowler | | | 2018 | Visit | | [address]IE [address] | | | | | | [address] | | | | | | [place], [place] | | | | | | [address] | | | | | | [phone] | | | | | | | | +--------+---------+ + + + | 03/16/ | Office | Neurology | Theresa, | | | 2018 | Visit | | [address] | | | | | | [address] [place], | | | | | | [place] [address] | | | | | | [phone] | | | | | | | | +--------+---------+ + + + | 04/12/ | Office | Primary Care | Massimo Ramos Pedro Luis | | | 2019 | Visit | | MD Fer [address] | | | | | | [place] | | | | | | [address] | | | | | | | | +--------+---------+ + + + | 10/03/ | Office | Neurology | Fabián Carias MD | | | 2019 | Visit | | [address] | | | | | | [place] | | | | | | [address] | | | | | | | [...] | | care | | | Lead Teacher-C | | | | | | [...] | | care | | | Lead Teacher-C | | | | | | [...] | | care | | | Lead Teacher-C | | | | | | [...] | | care | | | Lead Teacher-C | | | | | | | linical | + +--------+ +---+-----+ + + + | Note: Pt will | | check CBG's daily x1 | | Pt will take Lantis as | | prescribed | + + documented as of this encounter Visit Diagnoses + + | Diagnosis | + + | 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
--- OUTSIDE RECORDS SUMMARY | ~2019-02-17 | XMS | Encounter Summary ---
Demographics + + + | Address | [address] | | | [place] [address] | + + + | Home Phone | | + + + | Preferred Language | Unknown | + + + | Marital Status | | + + + | Restorationist Affiliation | 1025 | + + + [...] Providers + +------+ + | Care [place] Home Demonstrator Name | Role | Phone | + +------+ + | Horacio Silvestre DO | PCP | | + +------+ + Reason for Visit +--------+ + | Reason | Comments | +--------+ + | Other | change PCP | +--------+ + Encounter Details +--------+ + + + + | Date | Type | Department | Care Team | Description | +--------+ + + + + | 10/01/ | Telephone | [place] [facility] | Horacio Silvestre, | Other (change PCP) | | 2018 | | [facility] | DO [address] | | | | | MEDICAL CLINIC [address] | [facility], [place] | | | | | [address] [place], | [address] | | | | | [place] [address] | [phone] | | | | | [phone] | | | +--------+ + + + [...] [place] | | | | | | [address] | | | | | | [phone] | | | | | | | | +--------+---------+ + + + | 02/26/ | Office | Urology | Lillie Fowler | | | 2018 | Visit | | [address]IE Lopez [address] | | | | | | [address] | | | | | | [place], [place] | | | | | | [address] | | | | | | [phone] | | | | | | | | +--------+---------+ + + + | 03/16/ | Office | Neurology | Theresa, | | | 2018 | Visit | | [address] | | | | | | [address] [place], | | | | | | [place] [address] | | | | | | [phone] | | | | | | | | +--------+---------+ + + + | 04/12/ | Office | Primary Care | Massimo Ramos | | | 2019 | Visit | | MD Fer [address] | | | | | | [place] | | | | | | [address] | | | | | | | | +--------+---------+ + + + | 10/03/ | Office | Neurology | Fabián Carias MD | | | 2019 | Visit | | [address] | | | | | | [place] | | | | | | [address] | | | | | | | [...] | | | care | | | Wire Photo Operator News-C | | | | | | [...] | | | care | | | Wire Photo Operator News-C | | | | | | [...] | | | care | | | Wire Photo Operator News-C | | | | | | [...] | | | care | | | Wire Photo Operator News-C | | | | | | | linical | + +--------+ +---+-----+ + + + | Note: Pt will | | check CBG's daily x1 | | Pt will take Lantis as | | prescribed | + + documented as of this encounter Visit Diagnoses Not on filedocumented in this encounter"
--- OUTSIDE RECORDS SUMMARY | ~2019-02-17 | XMS | Encounter Summary ---
Demographics + + + | Address | [address] | | | [place] [address] | + + + | Home Phone [...] Team Providers + +------+ + | Care Linen Folder Name | Role | Phone | [...] | | | DR [address] [place], | [facility], [place] | | | | | [place] [address] | [address] | | | | | [phone] | [phone] | | | | | | | [...] [place] | | | | | | [address] | | | | | | [phone] | | | | | | | | +--------+---------+ + + + | 02/26/ | Office | Urology | Lillie Fowler | | | 2018 | Visit | | [address]ILLIE Lopez [address] | | | | | | [address] | | | | | | [place] | | | | | | [address] | | | | | | [phone] | | | | | | | | +--------+---------+ + + + | 03/16/ | Office | Neurology | Theresa, | | | 2018 | Visit | | [address] | | | | | | [address] [place], | | | | | | [place] [address] | | | | | | [phone] | | | | | | | | +--------+---------+ + + + | 04/12/ | Office | Primary Care | Massimo Ramos | | | 2019 | Visit | | MD Fer [address] | | | | | | [place] | | | | | | [address] | | | | | | | | +--------+---------+ + + + | 10/03/ | Office | Neurology | Fabián Carias MD | | | 2019 | Visit | | [address] | | | | | | [place] | | | | | | [address] | | | | | | | [...] | | | care | | | High School Mathematics Teacher-C | | | | | | [...] | | | care | | | High School Mathematics Teacher-C | | | | | | [...] | | | care | | | High School Mathematics Teacher-C | | | | | | [...] | | | care | | | High School Mathematics Teacher-C | | | | | | | linical | + +--------+ +---+-----+ + + + | Note: Pt will | | check CBG's daily x1 | | Pt will take Lantis as | | prescribed | + + documented as of this encounter Visit Diagnoses Not on filedocumented in this encounter"
--- OUTSIDE RECORDS SUMMARY | ~2019-02-17 | XMS | Encounter Summary ---
Demographics + + + | Address | [address] | | | [place] [address] | + + + | Home Phone [...] Team Providers + +------+ + | Care Work Order Detailer Name | Role | Phone | + [...] | | [address] [place], | [address] | | | | | [place] [address] | [phone] | | | | | [phone] | | | +--------+ + + + [...] [place] | | | | | | [address] | | | | | | [phone] | | | | | | | | +--------+---------+ + + + | 02/26/ | Office | Urology | Lillie Fowler | | | 2018 | Visit | | [address] | | | | | [address] | | | | | | [place], [place] | | | | | | [address] | | | | | | [phone] | | | | | | | | +--------+---------+ + + + | 03/16/ | Office | Neurology | Theresa, | | | 2018 | Visit | | [address] | | | | | | [address] [place], | | | | | | [place] [address] | | | | | | [phone] | | | | | | | | +--------+---------+ + + + | 04/12/ | Office | Primary Care | Massimo Ramos | | | 2019 | Visit | | MD Fer [address] | | | | | | [address] [place], [place] | | | | | | [address] | | | | | | | | +--------+---------+ + + + | 10/03/ | Office | Neurology | Fabián Carias MD | | | 2019 | Visit | | [address] | | | | | | [place] | | | | | | [address] | | | | | | | [...] | | | care | | | Level Vial Curvature Gauger-C | | | | | | | [...] | | | care | | | Level Vial Curvature Gauger-C | | | | | | | [...] | | | care | | | Level Vial Curvature Gauger-C | | | | | | | [...] | | | care | | | Level Vial Curvature Gauger-C | | | | | | | linical | + +--------+ +---+-----+ + + + | Note: Pt will | | check CBG's daily x1 | | Pt will take Lantis as | | prescribed | + + documented as of this encounter Visit Diagnoses Not on filedocumented in this encounter"
--- OUTSIDE RECORDS SUMMARY | ~2019-02-17 | XMS | Encounter Summary ---
Demographics + + + | Address | [address] | | | [place] [address] | + + + | Home Phone [...] Team Providers + +------+ + | Care Stained Glass Artist Name | Role | Phone | + [...] | | [place] | [place] [address] | | | | | [address] | [phone] | | | | | [phone] | | | +--------+ + + + [...] [place] | | | | | | [address] | | | | | | [phone] | | | | | | | | +--------+---------+ + + + | 02/26/ | Office | Urology | Lillie Fowler | | | 2018 | Visit | | LILLIE Lopez [address] | | | | | | [address] | | | | | | [place], [place] | | | | | | [address] | | | | | | [phone] | | | | | | | | +--------+---------+ + + + | 03/16/ | Office | Neurology | Theresa, | | | 2018 | Visit | | [address] | | | | | | [address] [place], | | | | | | [place] [address] | | | | | | [phone] | | | | | | | | +--------+---------+ + + + | 04/12/ | Office | Primary Care | Massimo Ramos Pedro Luis | | | 2019 | Visit | | MD Fer [address] | | | | | | [address] [place] | | | | | | [address] | | | | | | | | +--------+---------+ + + + | 10/03/ | Office | Neurology | Fabián Carias MD | | | 2019 | Visit | | [address] | | | | | | [place] | | | | | | [address] | | | | | | | [...] | | | care | | | Airplane Pilot Commercial-C | | | | | | | [...] | | | care | | | Airplane Pilot Commercial-C | | | | | | | [...] | | | care | | | Airplane Pilot Commercial-C | | | | | | | [...] | | | care | | | Airplane Pilot Commercial-C | | | | | | | [...] + + | [facility] | [address] | [place] [address] | [phone] | | HOSPITAL LABORATORY | | | [...]
--- OUTSIDE RECORDS SUMMARY | ~2019-02-17 | XMS | Encounter Summary ---
Demographics + + + | Address | [address] | | | [place] [address] | + + + | Home Phone | | + + + | Preferred Language | Unknown | + + + | Marital Status | | + + + | Orthodox Affiliation | 1025 | + + + | Race | Unknown | + + + | Ethnic Group | Unknown | + + + Author + + + | Author | [facility] | | | and [place] | + + + | Organization | [facility] | | [...] Team Providers + +------+ + | Care Moisture Machine Tender Name | Role | Phone [...] + + | 07/29/ | Telephone | [facility] | Ally Tian, | Hospital Follow-up | | 2019 | | [facility] | PharmD [address] | | | | [address] | [address] [place] | | | | | [place] [address] | [place] [address] | | | | | [phone] | [phone] | | +--------+ + + + + [...] [place] | | | | | | [address] | | | | | | [phone] | | | | | | | | +--------+---------+ + + + | 02/26/ | Office | Urology | Lillie Fowler | | | 2018 | Visit | | [address]IE Lopez [address] | | | | | | [address] | | | | | | [place], [place] | | | | | | [address] | | | | | | [phone] | | | | | | | | +--------+---------+ + + + | 03/16/ | Office | Neurology | Theresa, | | | 2018 | Visit | | [address] | | | | | | [address] [place], | | | | | | [place] [address] | | | | | | [phone] | | | | | | | | +--------+---------+ + + + | 04/12/ | Office | Primary Care | Massimo Ramos | | | 2019 | Visit | | MD Fer [address] | | | | | | [place] | | | | | | [address] | | | | | | | | +--------+---------+ + + + | 10/03/ | Office | Neurology | Fabián Carias MD | | | 2019 | Visit | | [address] | | | | | | [place] | | | | | | [address] | | | | | | | [...] | | | care | | | Ese Teacher-C | | | | | | [...] | | | care | | | Ese Teacher-C | | | | | | [...] | | | care | | | Ese Teacher-C | | | | | | [...] | | | care | | | Ese Teacher-C | | | | | | [...]
--- OUTSIDE RECORDS SUMMARY | ~2019-02-17 | XMS | Encounter Summary ---
Demographics + + + | Address | [address] | | | [place] [address] | + + + | Home Phone [...] Team Providers + +------+ + | Care Rn Urgent Care Name | Role | Phone | + +------+ + | Ryan Gutiérrez MD | PCP | | + +------+ + Encounter Details +--------+ + + + + | Date | Type | Department | Care Team | Description | +--------+ + + + + | 09/14/ | Hospital | [facility] | Macario Sibley | | | 2016 | Encounter | H[facility]PITAL EMERG[facility]Y | DO Scott [address] | | | | | CENTER [address] | [address] | | | | | [address] [place], [place] | [place] [address] | | | | | [address] | [phone] | | | | | [phone] | | | +--------+ + + + [...] [place] | | | | | | [address] | | | | | | [phone] | | | | | | | | +--------+---------+ + + + | 02/26/ | Office | Urology | Lillie Fowler | | | 2018 | Visit | | [address]IE [address] | | | | | | [address] | | | | | | [place] | | | | | | [address] | | | | | | [phone] | | | | | | | | +--------+---------+ + + + | 03/16/ | Office | Neurology | Theresa, | | | 2018 | Visit | | [address] | | | | | | [address] [place], | | | | | | [place] [address] | | | | | | [phone] | | | | | | | | +--------+---------+ + + + | 04/12/ | Office | Primary Care | Massimo Ramos | | | 2019 | Visit | | MD Fer [address] | | | | | | [place] | | | | | | [address] | | | | | | | | +--------+---------+ + + + | 10/03/ | Office | Neurology | Fabián Carias MD | | | 2019 | Visit | | [address] | | | | | | [place] | | | | | | [address] | | | | | | | [...] | | | care | | | Plate Colorer-C | | | | | | | [...] | | | care | | | Plate Colorer-C | | | | | | | [...] | | | care | | | Plate Colorer-C | | | | | | | [...] | | | care | | | Plate Colorer-C | | | | | | | [...] + | CBC W/AUTO | STAT | 09/15/2015 | | Results for this | | DIFFERENTIAL | | 3:43 PM | | procedure are in the | | | | PDT | | results section. | + +--------+ + + + | COMPREHENSIVE | STAT | 09/15/2015 | | Results for this | | METABOLIC PANEL | | 3:43 PM | | procedure are in the | | | | PDT | | results section. | + +--------+ + + + documented in this encounter Results Comprehensive Metabolic Panel (09/15/2015 3:43 PM PDT) + +-------+ + + + | Component | Value | Ref Range | Performed | Pathologist | | | | | At | Signature | + +-------+ + + + | Sodium | 132 | 132 - 143 | EXTERNAL | | | | | mmol/L | LAB | | + +-------+ + + + | Potassium | 4.6 | 3.3 - 4.9 | EXTERNAL | | | | | mmol/L | LAB | | + +-------+ + + + | Cl | 99 | 95 - 108 mmol/L | EXTERNAL | | | | | | LAB | | + +-------+ + + + | CO2 | 23 | 23 - 34 mmol/L | EXTERNAL | | | | | | LAB | | + +-------+ + + + | Anion Gap | 10 | 7 - 16 | EXTERNAL | | | | | | LAB | | + +-------+ + + + | Calcium | 8.3 | 8.3 - 10.0 | EXTERNAL | | | | | mg/dL | LAB | | + +-------+ + + + | Glucose | 150 | 70 - 110 mg/dL | EXTERNAL | | | | | | LAB | | + +-------+ + + + | BUN, Bld | 30 | 5 - 26 mg/dL | EXTERNAL | | | | | | LAB | | + +-------+ + + + | Creatinine | 1.96 | 0.70 - 1.40 | EXTERNAL | | | | | mg/dL | LAB | | + +-------+ + + + | BUN/Creatin | 15.3 | 7.0 - 24.0 | EXTERNAL | | | ine Ratio | | RATIO | LAB | | + +-------+ + + + | GFR | 33 | >=60 | EXTERNAL | | | [...] +-------+ + + + | Albumin | 3.7 | 3.0 - 4.5 g/dL | EXTERNAL | | | | | | LAB | | + +-------+ + + + | Alkaline | 86 | 46 - 116 U/L | EXTERNAL | | | Phosphatase | | | LAB | | + +-------+ + + + | ALT, | 26 | 16 - 63 U/L | EXTERNAL [...] +---------+ + + CBC w/ Auto Differential (09/15/2015 3:43 PM PDT) + +-------+ + + + | Component | Value | Ref Range | Performed | Pathologist | | | | | At | Signature | + +-------+ + + + | WBC | 8.6 | 4.6 - 10.5 | EXTERNAL | | | | | 1000/mm3 | LAB | | + +-------+ + + + | RBC | 3.72 | 4.36 - 5.83 | EXTERNAL | | | | | mil/mm3 | LAB | | + +-------+ + + + | HGB, | 11.3 | 13.1 - 17.4 | EXTERNAL | | | External | | g/dL | LAB | | + +-------+ + + + | HCT, | 34.8 | 39.0 - 51.9 % | EXTERNAL | | | External | | | LAB | | + +-------+ + + + | MCV | 94 | 82 - 96 fl | EXTERNAL | | | | | | LAB | | + +-------+ + + + | MCH | 30.4 | 27.7 - 32.3 pg | EXTERNAL | | | | | | LAB | | + +-------+ + + + | MCHC | 32.5 | 32.0 - 36.9 | EXTERNAL | | | | | g/dL | LAB | | + +-------+ + + + | RDW-CV | 16.6 | <=17.0 % | EXTERNAL | | | | | | LAB | | + +-------+ + + + | RDW-SD | 54.4 | 34.0 - 57.0 fL | EXTERNAL | | | | | | LAB | | + +-------+ + + + | Platelet | 209 | 150 - 450 | EXTERNAL | | | Count | | 1000/mm3 | LAB | | | Plasma | | | | | + +-------+ + + + | MPV | 10 | 9.4 - 12.4 FL | EXTERNAL | | | | | | LAB | | + +-------+ + + + | % Segmented | 49.7 | 42.0 - 76.0 % | EXTERNAL | | | | | | LAB | | | Neutrophils | | | | | + +-------+ + + + | % | 30.2 | 20.0 - 40.0 % | EXTERNAL | | | Lymphocytes | | | LAB | | + +-------+ + + + | % Monocytes | 16.3 | 3.0 - 13.0 % | EXTERNAL | | | | | | LAB | | + +-------+ + + + | % | 3.4 | 0.0 - 7.0 % | EXTERNAL | | | Eosinophils | | | LAB | | + +-------+ + + + | % Basophils | 0.4 | 0.0 - 2.0 % | EXTERNAL | | | | | | LAB | | + +-------+ + + + | Absolute | 4.26 | 2.80 - 7.70 | EXTERNAL | | | Neutrophils | | 1000/mm3 | LAB | | + +-------+ + + + | Absolute | 2.58 | 1.20 - 3.30 | EXTERNAL | | | Lymphocytes | | 1000/mm3 | LAB | | + +-------+ + + + | Absolute | 1.39 | 0.00 - 0.80 | EXTERNAL | | | Monocytes | | 1000/mm3 | LAB | | + +-------+ + + + | Absolute | 0.29 | 0.00 - 0.70 | EXTERNAL | [...]
--- OUTSIDE RECORDS SUMMARY | ~2019-02-17 | XMS | Encounter Summary ---
Demographics + + + | Address | [address] | | | [place] [address] | + + + | Home Phone [...] Team Providers + +------+ + | Care Truck Dock Material Mover Name | Role | Phone | + [...] [place] | | | | | | [address] | [place] | | | | | | Phone: | [phone] | | | | | | [phone] | Phone: | | | | | | Fax: | [phone] | | | | | | [phone] | Fax: | | | | | | | [phone] | + + + + + + [...] examination | | 2018 | Visit | [facility] | DNP [address] | (Primary Dx); Skin | | | | MED[facility] [address] | [place] [address] | lesion of scalp; | | | | [address] [place], | [phone] | Type 2 diabetes | | | | [place] [address] | | mellitus with | | | | [phone] | | diabetic | | | | | | polyneuropathy, with | | | | | | long-term current | | | | | | use of insulin | | | | | | ([facility]); Multilevel | | | | [...] melanoma on his L ear historically. - [facility] - AMB Referral 3. Type [...] managed with insulin. His last A1C in [facility] was 6.2. He is currently treated with [...] Past Surgical History: Procedure Laterality Date APPENDECTOMY Zaul Azul Takedown MOHS SURGERY Left L ear melanoma Ventral incisional hernia repair Past Medical History: Diagnosis Date Carpal tunnel syndrome, bilateral 05/31/2013 DDD (degenerative disc disease), cervical 05/22/2013 Diabetes mellitus (HCC) GERD (gastroesophageal reflux disease) Gout Hiatal hernia Hypertension 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, left (HCC) Neck pain, chronic 05/22/2013 Neuropathy ([facility]) Paresthesias - both hands 05/22/2013 [...] [place] | | | | | | [address] | | | | | | [phone] | | | | | | | | +--------+---------+ + + + | 02/26/ | Office | Urology | Lillie Fowler | | | 2018 | Visit | | LILLIE Lopez [address] | | | | | | [address] | | | | | | [place], [place] | | | | | | [address] | | | | | | [phone] | | | | | | | | +--------+---------+ + + + | 03/16/ | Office | Neurology | Theresa, | | | 2018 | Visit | | [address] | | | | | | [address] [place], | | | | | | [place] [address] | | | | | | [phone] | | | | | | | | +--------+---------+ + + + | 04/12/ | Office | Primary Care | Massimo Ramos | | | 2019 | Visit | | MD Fer [address] | | | | | | [address] [place], [place] | | | | | | [address] | | | | | | | | +--------+---------+ + + + | 10/03/ | Office | Neurology | Fabián Carias MD | | | 2019 | Visit | | [address] | | | | | | [place] | | | | | | [address] | | | | | | | [...] | | | care | | | Pet Resort Concierge-C | | | | | | | [...] | | | care | | | Pet Resort Concierge-C | | | | | | | [...] | | | care | | | Pet Resort Concierge-C | | | | | | | [...] | | | care | | | Pet Resort Concierge-C | | | | | | | [...] | 1.30 | 0.60 - 1.30 | [facility] | | | | | mg/dL | [...] | mL/min/1.73m2 | [facility] | | | [facility]AGAS[facility] | RATE,ESTIMATED | | HOSPITAL | | | | mL/min/1.24j8Stag than | | REGIONAL | | | [...] + + | [facility] | [address] | [place] [address] | [phone] | | HOSPITAL [facility] | | | [...] + + | [facility] | [address] | [place] [address] | [phone] | | HOSPITAL LABORATORY | | | [...] + + | [facility] | [address] | [place] [address] | [phone] | | [facility] | | | | | [facility] | | | [...]
--- OUTSIDE RECORDS SUMMARY | ~2019-02-17 | XMS | Encounter Summary ---
Demographics + + + | Address | [address] | | | [place] [address] | + + + | Home Phone [...] Team Providers + +------+ + | Care Security Team Lead Name | Role | Phone | [...] | HOSPITAL THERAPY PT | MD [address] | | | | | [address] | [address] | | | | | [place], [place] | [place] [address] | | | | | [address] | [phone] | | | | | [phone] | | | +--------+ + + + [...] [place] | | | | | | [address] | | | | | | [phone] | | | | | | | | +--------+---------+ + + + | 02/26/ | Office | Urology | Lillie Fowler | | | 2018 | Visit | | LILLIE Lopez [address] | | | | | | [address] | | | | | | [place], [place] | | | | | | [address] | | | | | | [phone] | | | | | | | | +--------+---------+ + + + | 03/16/ | Office | Neurology | Theresa, | | | 2018 | Visit | | [address] | | | | | | [address] [place], | | | | | | [place] [address] | | | | | | [phone] | | | | | | | | +--------+---------+ + + + | 04/12/ | Office | Primary Care | Massimo Ramos Pedro Luis | | | 2019 | Visit | | MD Fer [address] | | | | | | [place] | | | | | | [address] | | | | | | | | +--------+---------+ + + + | 10/03/ | Office | Neurology | Fabián Carias MD | | | 2019 | Visit | | [address] | | | | | | [place] | | | | | | [address] | | | | | | | [...] | | care | | | Laborer Wood Preserving Plant-C | | | | | | | [...] | | care | | | Laborer Wood Preserving Plant-C | | | | | | | [...] | | care | | | Laborer Wood Preserving Plant-C | | | | | | | [...] | | care | | | Laborer Wood Preserving Plant-C | | | | | | | linical | + +--------+ +---+-----+ + + + | Note: Pt will | | check CBG's daily x1 | | Pt will take Lantis as | | prescribed | + + documented as of this encounter Visit Diagnoses Not on filedocumented in this encounter"
--- OUTSIDE RECORDS SUMMARY | ~2019-02-17 | XMS | Encounter Summary ---
Demographics + + + | Address | [address] | | | [place] [address] | + + + | Home Phone [...] Providers + +------+ + | Care Supervisor [address] Name | Role | Phone | + +------+ + | Horacio Silvestre DO | PCP | | + +------+ + Reason for Visit + + + | Reason | Comments | + + + | Foot Problem | | + + + Evaluate & [...] | | | | | toenail | [address] | [address] | | | | | Procedures | Phone: | Phone: | | | | | FOOT ISSUES | [phone] | [phone] | | | | | | Fax: | Fax: | | | | | | [phone] | [phone] | +--------+ + + + + + Encounter Details +--------+---------+ + + + | Date | Type | Department | Care Team | Description | +--------+---------+ + + + | 02/19/ | Office | [facility] | Nessa Mathur, DPM | Fissure in skin of | | 2018 | Visit | HOSPITAL PODIATRY | [address] | foot (Primary Dx); | | | | [address] | [place], [place] | Hyperkeratosis of | | | | [place], [place] | [address] | sole; Onychomycosis | | | | [address] | | due to dermatophyte | | | | [phone] | | | +--------+---------+ + + + [...] + + + | Blood Pressure | 102/64 | 02/19/2018 1:01 PM | | | | | PST | | + + + + + | Pulse | 76 | 02/19/2018 1:01 PM | | | | | PST | | + + + + + | Temperature | 36.5 C (97.7 F) | 02/19/2018 1:01 PM | | | | | PST | | + + + + + | Respiratory Rate | 16 | 02/19/2018 1:01 PM | | | | | PST | | + + + + + | Oxygen Saturation | - | - | | + + + + + | Inhaled Oxygen | - | - | | | Concentration | | | | + + + + + | Weight | 93.4 kg (206 lb) | 02/19/2018 1:01 PM | | | | | PST [...] of this encounter Patient Instructions Patient Instructions Nessa Mathur DPM - 02/19/2018 1:00 PM PST Foot Care Program Evaluating your feet 1. Use a pumice stone to your heels daily after your feet are softened from either a bath, shower or soaking them 2. At night apply Vaseline to your heels and place the corner of a plastic [place] Bag ov er your heels and then your socks on 3. Use the prescription sent to you by your doctor today daily documented in this encounter Progress Notes Nessa Mathur DPM - 02/19/2018 1:00 PM PST [facility] Note Patient Name: Geraldo Mcfadden | Age: 77 y.o. | : 1940 | Medical Record Number:[id number] | Author: Nessa Mathur DPM | Date of Encounter: 02/19/2018 Chief complaint Chief Complaint Patient presents with Foot Problem History of Present Illness Geraldo Mcfadden is a 77 y.o. male that presents today with his with concern of thic k skin on the bottom of his heels as well as crack develop in his skin and cause a lot of pa in when he is walking. Patient states he's had this on and off for a number of years and he doesn't know how to get rid of it. Patient denies that he had an infection because of the cracks in his heels. Patient is also concern of thickened and discolored toenails that he believes started when he was in [place] in the . He believes because his feet were wet of the time that he developed infection. He also states that he does have very moist feet on a regular basis wh en he wears shoes and socks. He denies any itching to his skin. Patient also relates short-term memory loss [facility]. Medications Current Outpatient Prescriptions on File Prior to Visit Medication Sig Dispense Refill albuterol 90 mcg/puff inhaler Inhale 2 puffs into the lungs every 4 hours as needed for Wheezing. Or coughing 1 Inhaler 1 aspirin 325 mg tablet Take 325 mg by mouth every morning. atorvaSTATin (LIPITOR) 10 mg tablet Take 1 tablet by mouth nightly. 90 tablet 3 colchicine 0.6 mg tablet Take 0.6 mg by mouth every morning. cyanocobalamin (VITAMIN B-12) 1000 MCG tablet Take 1,000 mcg by mouth every morning. fluticasone (FLONASE) 50 mcg/nasal spray 2 sprays by Nasal route nightly as needed for Allergies. 16 g 1 insulin aspart (NOVOLOG) 100 units/mL injection Inject 10 Units under the skin every mo rning (before breakfast). Checks BG 30 minutes after eating + Additional 15 units for BG >250 insulin glargine (LANTUS) 100 units/mL injection (vial) Inject 35 Units under the skin nightly. 3 vial 5 Insulin Syringe-Needle U-100 31G X 08/20" 0.5 ML MISC 1 each by Does [...] morning (before break fast). 90 capsule 3 ondansetron (ZOFRAN ODT) 4 mg disintegrating tablet [...] 3 traZODone (DESYREL) 50 mg tablet Take 2 tablets by mouth nightly. 90 tablet 3 Current Facility-Administered Medications on File Prior to Visit Medication Dose Route Frequency Provider Last Rate Last Dose [COMPLETED] bupivacaine (PF) (MARCAINE) 0.5% injection 10 mL 10 mL Other Once Fabián Carias MD 10 mL at 02/19/18 1021 [COMPLETED] ketorolac (TORADOL) injection 60 mg 60 mg Intramuscular Once Fabián Carias MD 60 mg at 02/19/18 1001 [COMPLETED] lidocaine (PF) 1% injection 20 mL 20 mL Other Once Fabián Carias MD 20 mL at 02/19/18 1021 [COMPLETED] methylPREDNISolone acetate (DEPO-MEDROL) 40 mg/mL injection 400 mg 400 mg Intramuscular Once Fabián Carias MD 400 mg at 02/19/18 1022 Allergies Zolpidem Vitals BP 102/64 | Pulse 76 | Resp 16 Temp 36.5 C (97.7 F) | Wt 93.4 kg (206 lb) | BMI Body m ass index is 34.28 kg/m. ROS Patient denies any visit problem [...] the distal one third of bilateral legs. Capillary refill time with the leg elevated at the distal dee lux was less than 5 seconds bilateral. There is no evidence of ischemic skin changes. [place] rature gradient was warm to cool measured from proximal leg to distal foot. Noninflamed gonzalo icosities present to bilateral feet and ankles. NEUROLOGICAL [...] 709.8 2. Hyperkeratosis of sole L85.9 701.1 3. Onychomycosis due to dermatophyte B35.1 110.1 Treatment and Plan of Care Patient seen and evaluated Discussed hyperkeratoses and fissures and skin due to xerosis and hyperkeratoses. Recommen d the patient use a pumice stone regularly and showed the patient and the patient's a p icture and told them that they could purchase one at [facility] or [employer]. After that patie nt can take Vaseline petroleum jelly and apply to his heels and apply a plastic [place] bag over that and his socks and sleep through the night with that. Patient is only to apply th e plastic bag to his heels and no other part of his foot. Written instructions were given t o the patient. Educated patient on signs of infection secondary to fissures Rx: Urea 40% cream to be used daily Discussed etiology and proposed tx course of onychomycosis including nail sx vs. topical me dication vs. oral medication or a combination thereof. Patient opted for oral medication but upon review of recent liver enzymes, which were eleva rosemarie, as explained to patient that this is not a good idea and why. Recommend routine debrid ement to lower the fungal load. 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 current use of aspirin 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, left outreach director current use of opiate analgesic Current use of beta marly Panlobular emphysema Atherosclerosis of [place] coronary artery of [place] heart without angina pectoris On potassium wasting diuretic therapy Community acquired pneumonia, unspecified laterality Primary osteoarthritis involving multiple joints Vitamin D deficiency disease Past Medical History: Diagnosis Date Carpal tunnel [...] CATARACT REMOVAL; Surgeon: Tay Kern MD; Location: [facility] SURGERY Azul Azul Takedown MOHS SURGERY [...] Social History Narrative No narrative on file I attest to the fact that I have reviewed the patient's medical, surgical, family and socia l histories, medications, allergies, and their vital signs recorded by my assistant auto center manager today, a s found in this chart note. Electronically signed by: Nessa Mathur DPM 02/19/2018 at 13:48 Note: Part of this report was transcribed using voice recognition software. Every effort wa s made to ensure accuracy. However, inadvertent computerized oven dauber errors may be pre sent. CC: DO [...] [place] | | | | | | [address] | | | | | | [phone] | | | | | | | | +--------+---------+ + + + | 02/26/ | Office | Urology | Lillie Fowler | | | 2018 | Visit | | [address]ILLIE Lopez [address] | | | [address] | | | | | | [place] | | | | | | [address] | | | | | | [phone] | | | | | | | | +--------+---------+ + + + | 03/16/ | Office | Neurology | Theresa, | | | 2018 | Visit | | [address] | | | | | [address] [place], | | | | | | [place] [address] | | | | | | [phone] | | | | | | | | +--------+---------+ + + + | 04/12/ | Office | Primary Care | Massimo Ramos | | | 2019 | Visit | | MD Fer [address] | | | | | | [place] | | | | | | [address] | | | | | | | | +--------+---------+ + + + | 10/03/ | Office | Neurology | Fabián Carias MD | | | 2020 | Visit | | [address] | | | | | | [place] | | | | | | [address] | | | | | | | [...] | | | care | | | Customs Inspector-C | | | | | | [...] | | | care | | | Customs Inspector-C | | | | | | [...] | | | care | | | Customs Inspector-C | | | | | | [...] | | | care | | | Customs Inspector-C | | | | | | [...] of sole Acquired keratoderma | + + | Onychomycosis due to dermatophyte Dermatophytosis of nail | + + documented in this encounter
--- OUTSIDE RECORDS SUMMARY | ~2019-02-17 | XMS | Encounter Summary ---
Demographics + + + | Address | [address] | | | [place] [address] | + + + | Home Phone [...] Team Providers + +------+ + | Care River Expedition Guide Name | Role | Phone | + [...] | | | | | [address] [facility], | [address] | | | | | [place] [address] | [phone] | | | | | [phone] | | | +--------+ + + + [...] [place] | | | | | | [address] | | | | | | [phone] | | | | | | | | +--------+---------+ + + + | 02/26/ | Office | Urology | Lillie Fowler | | | 2018 | Visit | | [address]IE Lopez [address] | | | | | | [address] | | | | | | [place] | | | | | | [address] | | | | | | [phone] | | | | | | | | +--------+---------+ + + + | 03/16/ | Office | Neurology | Theresa, | | | 2018 | Visit | | [address] | | | | | | [address] [place], | | | | | | [place] [address] | | | | | | [phone] | | | | | | | | +--------+---------+ + + + | 04/12/ | Office | Primary Care | Massimo Ramos | | | 2019 | Visit | | MD Fer [address] | | | | | | [address] [place] | | | | | | [address] | | | | | | | | +--------+---------+ + + + | 10/03/ | Office | Neurology | Fabián Carias MD | | | 2019 | Visit | | [address] | | | | | | [place] | | | | | | [address] | | | | | | | [...] | | | care | | | Barrel Bridge Assembler-C | | | | | | [...] | | | care | | | Barrel Bridge Assembler-C | | | | | | [...] | | | care | | | Barrel Bridge Assembler-C | | | | | | [...] | | | care | | | Barrel Bridge Assembler-C | | | | | | | linical | + +--------+ +---+-----+ + + + | Note: Pt will | | check CBG's daily x1 | | Pt will take Lantis as | | prescribed | + + documented as of this encounter Visit Diagnoses Not on filedocumented in this encounter"
--- OUTSIDE RECORDS SUMMARY | ~2019-02-17 | XMS | Encounter Summary ---
Demographics + + + | Address | [address] | | | [place] [address] | + + + | Home Phone [...] Team Providers + +------+ + | Care Compressor Operator Adjuster Name | Role | Phone | + [...] | | | | | toenail | [address] | [address] | | | | | Procedures | Phone: | Phone: | | | | | FOOT ISSUES | [phone] | [phone] | | | | | | Fax: | Fax: | | | | | | [phone] | [phone] | +--------+ + + + + + [...] | | | [place], [place] | [address] | sole; Onychomycosis | | | | [address] | | due to dermatophyte | | | | [phone] | | | +--------+---------+ + + + [...] and place the corner of a plastic Castalia Bag ov er your heels and then your socks on 3. Use the prescription sent to you by your doctor today daily documented in this encounter Progress Notes eNssa Mathur DPM - 02/19/2018 1:00 PM PST [facility] Note Patient Name: Geraldo Mcfadden | Age: 77 y.o. | : 1940 | Medical Record Number:[id number] | Author: Nessa Mathur DPM | Date [...] is no evidence of ischemic skin changes. Pemberton rature gradient was warm to cool measured [...] could purchase one at right aid or [employer]. 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 Electronically signed by: Nessa Mathur DPM 02/19/2018 at 13:48 Note: Part of this report was transcribed using voice recognition software. Every effort wa s made to ensure accuracy. However, inadvertent computerized stores assistant errors may be pre sent. CC: DO [...] [place] | | | | | | [address] | | | | | | [phone] | | | | | | | | +--------+---------+ + + + | 02/26/ | Office | Urology | Lillie Fowler | | | 2018 | Visit | | [address] | | | | | | [address] | | | | | | [place] | | | | | | [address] | | | | | | [phone] | | | | | | | | +--------+---------+ + + + | 03/16/ | Office | Neurology | Theresa, | | | 2018 | Visit | | [address] | | | | | | [address] [place], | | | | | | [place] [address] | | | | | | [phone] | | | | | | | | +--------+---------+ + + + | 04/12/ | Office | Primary Care | Massimo Ramos | | | 2019 | Visit | | MD Fer [address] | | | | | | [place] | | | | | | [address] | | | | | | | | +--------+---------+ + + + | 10/03/ | Office | Neurology | Fabián Carias MD | | | 2020 | Visit | | [address] | | | | | | [place] | | | | | | [address] | | | | | | | [...] | | care | | | Licensed Acupuncturist-C | | | | | | | [...] | | care | | | Licensed Acupuncturist-C | | | | | | | [...] | | care | | | Licensed Acupuncturist-C | | | | | | | [...] | | care | | | Licensed Acupuncturist-C | | | | | | | [...]
--- OUTSIDE RECORDS SUMMARY | ~2019-02-17 | XMS | Encounter Summary ---
Demographics + + + | Address | [address] | | | [place] [address] | + + + | Home Phone [...] Team Providers + +------+ + | Care Automatic Spreader Operator Name | Role | Phone | [...] + + | 12/22/ | Telephone | [facility] | Charline Banks, | Care Coordination | | 2019 | | [facility] Case | | | | | [facility] | Information Technology Security Manager-Clinical | | | | | [facility] [place], | | | | | | [place] [address] | | | | | | [phone] | | | +--------+ + + + [...] [place] | | | | | | [address] | | | | | | [phone] | | | | | | | | +--------+---------+ + + + | 02/26/ | Office | Urology | Lillie Fowler | | | 2018 | Visit | | [address] | | | | | | [address] [place] | | | | | | [place], [place] | | | | | | [address] | | | | | | [phone] | | | | | | | | +--------+---------+ + + + | 03/16/ | Office | Neurology | Theresa, | | | 2018 | Visit | | [address] | | | | | | [address] [place], | | | | | | [place] [address] | | | | | | [phone] | | | | | | | | +--------+---------+ + + + | 04/12/ | Office | Primary Care | Richard Massimo Pedro Luis | | | 2019 | Visit | | MD [address] | | | | | | [place] | | | | | | [address] | | | | | | | | +--------+---------+ + + + | 10/03/ | Office | Neurology | Fabián Carias MD | | | 2019 | Visit | | [address] | | | | | | [place] | | | | | | [address] | | | | | | | [...] | | | care | | | Information Technology Security Manager-C | | | | | | [...] | | | care | | | Information Technology Security Manager-C | | | | | | [...] | | | care | | | Information Technology Security Manager-C | | | | | | [...] | | | care | | | Information Technology Security Manager-C | | | | | | [...]
--- OUTSIDE RECORDS SUMMARY | ~2019-02-17 | XMS | Encounter Summary ---
Demographics + + + | Address | [address] | | | [place] [address] | + + + | Home Phone [...] Team Providers + +------+ + | Care Tie Buyer Name | Role | Phone | + [...] [address] | [facility] [place] | | | | | [address] [place], | [address] | | | | | [place] [address] | [phone] | | | | | [phone] | | | +--------+--------+ + + + [...] [place] | | | | | | [address] | | | | | | [phone] | | | | | | | | +--------+---------+ + + + | 02/26/ | Office | Urology | Lillie Fowler | | | 2018 | Visit | | [address] | | | | | | [address] | | | | | | [place], [place] | | | | | | [address] | | | | | | [phone] | | | | | | | | +--------+---------+ + + + | 03/16/ | Office | Neurology | Theresa, | | | 2018 | Visit | | [address] | | | | | | [address] [place], | | | | | | [place] [address] | | | | | | [phone] | | | | | | | | +--------+---------+ + + + | 04/12/ | Office | Primary Care | Massimo Ramos | | | 2019 | Visit | | MD [address] | | | | | | [place] | | | | | | [address] | | | | | | | | +--------+---------+ + + + | 10/03/ | Office | Neurology | Fabián Carias MD | | | 2019 | Visit | | [address] | | | | | | [place] | | | | | | [address] | | | | | | | [...] | | care | | | Senior Data Warehouse Architect-C | | | | | | [...] | | care | | | Senior Data Warehouse Architect-C | | | | | | [...] | | care | | | Senior Data Warehouse Architect-C | | | | | | [...] | | care | | | Senior Data Warehouse Architect-C | | | | | | [...]
--- OUTSIDE RECORDS SUMMARY | ~2019-02-17 | XMS | Encounter Summary ---
Demographics + + + | Address | [address] | | | [place] [address] | + + + | Home Phone [...] Providers + +------+ + | Care Rn Documentation Name | Role | Phone | + [...] + + | 11/23/ | Telephone | [facility] | Charline Banks, | Care Coordination | | 2019 | | [facility] | Case | | | | | [facility] [address] | Traffic Law Attorney-Clinical | | | | | [facility] [facility] [place], | | | | | | [place] [address] | | | | | | [phone] | | | +--------+ + + + [...] [place] | | | | | | [address] | | | | | | [phone] | | | | | | | | +--------+---------+ + + + | 02/26/ | Office | Urology | Lillie Fowler | | | 2018 | Visit | | [address] | | | | | | [address] | | | | | | [place], [place] | | | | | | [address] | | | | | | [phone] | | | | | | | | +--------+---------+ + + + | 03/16/ | Office | Neurology | Theresa, | | | 2018 | Visit | | [address] | | | | | | [address] [place], | | | | | | [place] [address] | | | | | | [phone] | | | | | | | | +--------+---------+ + + + | 04/12/ | Office | Primary Care | Massimo Ramos | | | 2019 | Visit | | MD [address] | | | | | | [place] | | | | | | [address] | | | | | | | | +--------+---------+ + + + | 10/03/ | Office | Neurology | Fabián Carias MD | | | 2019 | Visit | | [address] | | | | | | [place] | | | | | | [address] | | | | | | | [...] | | care | | | Traffic Law Attorney-C | | | | | | [...] | | care | | | Traffic Law Attorney-C | | | | | | [...] | | care | | | Traffic Law Attorney-C | | | | | | [...] | | care | | | Traffic Law Attorney-C | | | | | | [...]
--- OUTSIDE RECORDS SUMMARY | ~2019-02-17 | XMS | Encounter Summary ---
Demographics + + + | Address | [address] | | | [place] [address] | + + + | Home Phone [...] Team Providers + +------+ + | Care Spool Tender Name | Role | Phone | [...] [facility] | [place] [address] | | | | | [address] [place], | [phone] | | | | | [place] [address] | | | | | | [phone] | | | +--------+ + + + [...] 2:2 2 PM PSTOXYCODONE 5MG SENT To [facility] ADDRESS [address] [place] [address] [phone] [...] [place] | | | | | | [address] | | | | | | [phone] | | | | | | | | +--------+---------+ + + + | 02/26/ | Office | Urology | Lillie Fowler | | | 2018 | Visit | | [address] | | | | | | [address] | | | | | | [place], [place] | | | | | | [address] | | | | | | [phone] | | | | | | | | +--------+---------+ + + + | 03/16/ | Office | Neurology | Theresa, | | | 2018 | Visit | | [address] | | | | | | [address] [place], | | | | | | [place] [address] | | | | | | [phone] | | | | | | | | +--------+---------+ + + + | 04/12/ | Office | Primary Care | Massimo Ramos | | | 2019 | Visit | | MD [address] | | | | | | [place] | | | | | | [address] | | | | | | | | +--------+---------+ + + + | 10/03/ | Office | Neurology | Fabián Carias MD | | | 2019 | Visit | | [address] | | | | | | [place] | | | | | | [address] | | | | | | | [...] | | | care | | | Gold Nib Grinder-C | | | | | | | [...] | | | care | | | Gold Nib Grinder-C | | | | | | | [...] | | | care | | | Gold Nib Grinder-C | | | | | | | [...] | | | care | | | Gold Nib Grinder-C | | | | | | | linical | + +--------+ +---+-----+ + + + | Note: Pt will | | check CBG's daily x1 | | Pt will take Lantis as | | prescribed | + + documented as of this encounter Visit Diagnoses Not on filedocumented in this encounter"
--- OUTSIDE RECORDS SUMMARY | ~2019-02-17 | XMS | Encounter Summary ---
Demographics + + + | Address | [address] | | | [place] [address] | + + + | Home Phone [...] Team Providers + +------+ + | Care Cut Filer Name | Role | Phone | + [...] | | | | [address] [facility], | [address] | | | | | [place] [address] | [phone] | | | | | [phone] | | | +--------+ + + + [...] [place] | | | | | | [address] | | | | | | [phone] | | | | | | | | +--------+---------+ + + + | 02/26/ | Office | Urology | Lillie Fowler | | | 2018 | Visit | | [address] | | | | | | [address] | | | | | | [place] | | | | | | [address] | | | | | | [phone] | | | | | | | | +--------+---------+ + + + | 03/16/ | Office | Neurology | Theresa, | | | 2018 | Visit | | [address] | | | | | | [address] [place], | | | | | | [place] [address] | | | | | | [phone] | | | | | | | | +--------+---------+ + + + | 04/12/ | Office | Primary Care | Massimo Ramos | | | 2019 | Visit | | MD Fer [address] | | | | | | [place] | | | | | | [address] | | | | | | | | +--------+---------+ + + + | 10/03/ | Office | Neurology | Fabián Carias MD | | | 2019 | Visit | | [address] | | | | | | [place] | | | | | | [address] | | | | | | | [...] | | | care | | | Open Claims Representative-C | | | | | | [...] | | | care | | | Open Claims Representative-C | | | | | | [...] | | | care | | | Open Claims Representative-C | | | | | | [...] | | | care | | | Open Claims Representative-C | | | | | | | linical | + +--------+ +---+-----+ + + + | Note: Pt will | | check CBG's daily x1 | | Pt will take Lantis as | | prescribed | + + documented as of this encounter Visit Diagnoses Not on filedocumented in this encounter"
--- OUTSIDE RECORDS SUMMARY | ~2019-02-17 | XMS | Encounter Summary ---
Demographics + + + | Address | [address] | | | [place] [address] | + + + | Home Phone | | + + + | Preferred Language | Unknown | + + + | Marital Status | | + + + | Amish Affiliation | 1025 | + + + | Race | Unknown | + + + | Ethnic Group | Unknown | + + + Author + + + | Author | [facility] | | | and [place] | + + + | Organization | [facility] | | [...] Providers + +------+ + | Care Hotel Maid Name | Role | Phone | + [...] + + | 12/10/ | Telephone | [facility] | Charline Banks, | Care Coordination | | 2019 | | [facility] | Case | | | | | [facility] | Demand Manager-Clinical | | | | | [address] [facility] [place], | | | | | | [place] [address] | | | | | | [phone] | | | +--------+ + + + [...] do you have serious | No | 12/08/2018 | | difficulty hearing? | | | + + + + | Are you blind or do you have serious | No | 12/08/2018 | | difficulty seeing, even when wearing | | | | glasses? | | | + + + + | Do you have serious difficulty walking or | No | 12/08/2018 | | climbing stairs? (5 years old or older) | | | + + + + | Do you have difficulty dressing or bathing? | No | 12/08/2018 | | (5 years old or older) | | | + + + + | Because of a physical, mental, or emotional | No | 12/08/2018 | | condition, do you have difficulty [...] physical, mental, or emotional | No | 12/08/2018 | | condition, do you have serious [...] [place] | | | | | | [address] | | | | | | [phone] | | | | | | | | +--------+---------+ + + + | 02/26/ | Office | Urology | Lillie Fowler | | | 2018 | Visit | | [address] | | | | | | [address] | | | | | | [place], [place] | | | | | | [address] | | | | | | [phone] | | | | | | | | +--------+---------+ + + + | 03/16/ | Office | Neurology | Theresa, | | | 2018 | Visit | | [address] | | | | | | [address] [place], | | | | | | [place] [address] | | | | | | [phone] | | | | | | | | +--------+---------+ + + + | 04/12/ | Office | Primary Care | Massimo Ramos | | | 2019 | Visit | | MD [address] | | | | | | [place] | | | | | | [address] | | | | | | | | +--------+---------+ + + + | 10/03/ | Office | Neurology | Fabián Carias MD | | | 2019 | Visit | | [address] | | | | | | [place] | | | | | | [address] | | | | | | | [...] | | | care | | | Demand Manager-C | | | | | | [...] | | | care | | | Demand Manager-C | | | | | | [...] | | | care | | | Demand Manager-C | | | | | | [...] | | | care | | | Demand Manager-C | | | | | | [...]
--- OUTSIDE RECORDS SUMMARY | ~2019-02-17 | XMS | Encounter Summary ---
Demographics + + + | Address | [address] | | | [place] [address] | + + + | Home Phone [...] Providers + +------+ + | Care Supervisor Fitting Name | Role | Phone | + +------+ + | Ryan Gutiérrez MD | PCP | | + +------+ + Encounter Details +--------+ + + + + | Date | Type | Department | Care Team | Description | +--------+ + + + + | 06/22/ | Hospital | [facility] | Romario Gallagher | | | 2016 | Encounter | [facility] | DO [address] | | | | | [address] [place] | [address] | | | | | [place], [place] | [place], [place] | | | | | [address] | [address] | | | | | [phone] | [phone] | | | | | | | [...] documented as of this encounter Discharge Summaries Romario Gallagher DO - 06/23/2015 2:23 AM PDTDISCHARGE SUMMARY DATE OF ADMISSION: 06/23/2015. DATE OF DIAGNOSIS: 06/28/2015. PRINCIPAL DIAGNOSIS: Perforated diverticulitis. PROCEDURES: Laparoscopy with washout and drain placement. SURGEON: Romario Gallagher DO. COMPLICATIONS: None. CONSULTATIONS: None. HOSPITAL COURSE: Mr. Mcfadden is a 75-year-old male who presented to the emergency department with perforated di verticulitis. He was taken to the operating room late at night and underwent a laparoscopy w ith washout and drain placement. Postoperatively, he was transferred to the floor. He did have fairly significant pain until he developed bowel function and at that point his pain improved. He has two DIMITRIOS drains, one actually in the skin in each lower quadrant. On the left side the drain is putting out feculent material. The right-sided drain is putting out a serous material. At this point, he is tolerating a diet and continues to have bowel function. He has minimal abdominal pain and his distention has resolved. He remains on CIPRO and FLAGYL and will be going home with prescription for each of these for a 2-week course. He will also keep his drains in place and I will have him follow up with me in the office in a pproximately 2-3 weeks. DISCHARGE PLAN: Plan is to set him up for a colonoscopy at approximately 6 weeks out if I am able to do so given the status of his drains. He is given a third prescription for NORCO 5/325, #30. He is discharged in stable condition. [facility] Signed and Approved by: ROMARIO GALLAGHER DO 06/29/2015 09:09:00 documented in this encounter Medications at Time [...] | Office | General Surgery | Romario Gallagher | | | 2018 | Visit | | DO Luis Fernando Rao | | | | | | [address] | | | | | | [place] | | | | | | [address] | | | | | | [phone] | | | | | | | | +--------+---------+ + + + | 02/26/ | Office | Urology | Lillie Fowler | | | 2018 | Visit | | [address]ILLIE [address] | | | | | | [address] | | | | | | [place] | | | | | | [address] | | | | | | [phone] | | | | | | | | +--------+---------+ + + + | 03/16/ | Office | Neurology | Theresa, | | | 2019 | Visit | | [address] | | | | | | [address] [place], | | | | | | [place] [address] | | | | | | [phone] | | | | | | | | +--------+---------+ + + + | 04/12/ | Office | Primary Care | Massimo Ramos | | | 2019 | Visit | | MD Fer [address] | | | | | | [address] [place] | | | | | | [address] | | | | | | | | +--------+---------+ + + + | 10/03/ | Office | Neurology | Fabián Carias MD | | | 2019 | Visit | | [address] | | | | | | [place] | | | | | | [address] | | | | | | | [...] | | | care | | | Business Area Director-C | | | | | | [...] | | | care | | | Business Area Director-C | | | | | | [...] | | | care | | | Business Area Director-C | | | | | | [...] | | | care | | | Business Area Director-C | | | | | | [...] + | POC GLUCOSE, | Routin | 06/28/2015 | | Results for this | | R[facility]IDPOINT | e | 11:56 AM | | procedure are in the | | | | PDT | | results section. | + +--------+ + + + | POC GLUCOSE, | Routin | 06/28/2015 | | Results for this | | RAPIDPOINT | e | 7:35 AM | | procedure are in the | | | | PDT | | results section. | + +--------+ + + + | POC GLUCOSE, | Routin | 06/27/2015 | | Results for this | | RAPIDPOINT | e | 8:34 PM | | procedure are in the | | | | PDT | | results section. | + +--------+ + + + | POC GLUCOSE, | Routin | 06/27/2015 | | Results for this | | RAPIDPOINT | e | 3:59 PM | | procedure are in the | | | | PDT | | results section. | + +--------+ + + + | POC GLUCOSE, | Routin | 06/27/2015 | | Results for this | | RAPIDPOINT | e | 11:26 AM | | procedure are in the | | | | PDT | | results section. | + +--------+ + + + | HEPATIC FUNCTION | DIEUDONNE | 06/27/2015 | | Results for this | | PANEL | | 8:04 AM | | procedure are in the | | | | PDT | | results section. | + +--------+ + + + | POC GLUCOSE, | Routin | 06/27/2015 | | Results for this | | RAPIDPOINT | e | 7:14 AM | | procedure are in the | | | | PDT | | results section. | + +--------+ + + + | POC GLUCOSE, | Routin | 06/26/2015 | | Results for this | | RAPIDPOINT | e | 9:05 PM | | procedure are in the | | | | PDT | | results section. | + +--------+ + + + | POC GLUCOSE, | Routin | 06/26/2015 | | Results for this | | RAPIDPOINT | e | 4:41 PM | | procedure are in the | | | | PDT | | results section. | + +--------+ + + + | POC GLUCOSE, | Routin | 06/26/2015 | | Results for this | | RAPIDPOINT | e | 11:18 AM | | procedure are in the | | | | PDT | | results section. | + +--------+ + + + | POC GLUCOSE, | Routin | 06/26/2015 | | Results for this | | RAPIDPOINT | e | 7:49 AM | | procedure are in the | | | | PDT | | results section. | + +--------+ + + + | POC GLUCOSE, | Routin | 06/26/2015 | | Results for this | | RAPIDPOINT | e | 4:16 AM | | procedure are in the | | | | PDT | | results section. | + +--------+ + + + | POC GLUCOSE, | Routin | 06/25/2015 | | Results for this | | RAPIDPOINT | e | 9:50 PM | | procedure are in the | | | | PDT | | results section. | + +--------+ + + + | POC GLUCOSE, | Routin | 06/25/2015 | | Results for this | | RAPIDPOINT | e | 4:51 PM | | procedure are in the | | | | PDT | | results section. | + +--------+ + + + | POC GLUCOSE, | Routin | 06/25/2015 | | Results for this | | RAPIDPOINT | e | 8:34 AM | | procedure are in the | | | | PDT | | results section. | + +--------+ + + + | POC GLUCOSE, | Routin | 06/25/2015 | | Results for this | | RAPIDPOINT | e | 3:59 AM | | procedure are in the | | | | PDT | | results section. | + +--------+ + + + | POC GLUCOSE, | Routin | 06/24/2015 | | Results for this | | RAPIDPOINT | e | 9:46 PM | | procedure are in the | | | | PDT | | results section. | + +--------+ + + + | POC GLUCOSE, | Routin | 06/24/2015 | | Results for this | | RAPIDPOINT | e | 11:36 AM | | procedure are in the | | | | PDT | | results section. | + +--------+ + + + | POC GLUCOSE, | Routin | 06/24/2015 | | Results for this | | RAPIDPOINT | e | 8:00 AM | | procedure are in the | | | | PDT | | results section. | + +--------+ + + + | POC GLUCOSE, | Routin | 06/24/2015 | | Results for this | | RAPIDPOINT | e | 5:32 AM | | procedure are in the | | | | PDT | | results section. | + +--------+ + + + | POC GLUCOSE, | Routin | 06/23/2015 | | Results for this | | RAPIDPOINT | e | 9:21 PM | | procedure are in the | | | | PDT | | results section. | + +--------+ + + + | POC GLUCOSE, | Routin | 06/23/2015 | | Results for this | | RAPIDPOINT | e | 5:11 PM | | procedure are in the | | | | PDT | | results section. | + +--------+ + + + | POC GLUCOSE, | Routin | 06/23/2015 | | Results for this | | RAPIDPOINT | e | 11:52 AM | | procedure are in the | | | | PDT | | results section. | + +--------+ + + + | POC GLUCOSE, | Routin | 06/23/2015 | | Results for this | | RAPIDPOINT | e | 7:39 AM | | procedure are in the | | | | PDT | | results section. | + +--------+ + + + | HEMOGRAM WITH | Routin | 06/23/2015 | | Results for this | | PLATELETS | e | 5:00 AM | | procedure are in the | | | | PDT | | results section. | + +--------+ + + + | BASIC METABOLIC | Routin | 06/23/2015 | | Results for this | | PANEL | e | 5:00 AM | | procedure are in the | | | | PDT | | results section. | + +--------+ + + + | POC GLUCOSE, | Routin | 06/23/2015 | | Results for this | | RAPIDPOINT | e | 2:21 AM | | procedure are in the | | | | PDT | | results section. | + +--------+ + + + documented in this encounter Results POC Glucose, [facility] (06/28/2015 11:56 AM PDT) + +-------+ + + + | Component | Value | Ref Range | Performed | Pathologist | | | | | At | Signature | + +-------+ + + + | Glucose, | 147 | 70 - 110 mg/dL [...] + +---------+ + + POC Glucose, [facility] (06/28/2015 7:35 AM PDT) + +-------+ + + + [...] + +---------+ + + POC Glucose, [facility] (06/27/2015 8:34 PM PDT) + +-------+ + + + | Component | Value | Ref Range | Performed | Pathologist | | | | | At | Signature | + +-------+ + + + | Glucose, | 109 | 70 - 110 mg/dL | EXTERNAL [...] + +---------+ + + POC Glucose, [facility] (06/27/2015 3:59 PM PDT) + +-------+ + + + | Component | Value | Ref Range | Performed | Pathologist | | | | | At | Signature | + +-------+ + + + | Glucose, | 146 | 70 - 110 mg/dL | EXTERNAL [...] + +---------+ + + POC Glucose, [facility] (06/27/2015 11:26 AM PDT) + +-------+ + + + [...] | | | + +---------+ + + Hepatic Function Panel (06/27/2015 8:04 AM PDT) + + + + + + | Component | Value | Ref Range | Performed | Pathologist | | | | | At | Signature | + + + + + + | Bilirubin, | 0.6 | <=1.2 mg/dL | EXTERNAL | | | Total | | | LAB | | + + + + + + | Bilirubin | 0.2 | <=0.3 mg/dL | EXTERNAL | | | Direct | | | LAB | | + + + + + + | Protein, | 6.7 | 6.6 - 8.5 g/dL | EXTERNAL | | | Total | | | LAB | | + + + + + + | Albumin | 2.9Comment: results | 3.0 - 4.5 g/dL | EXTERNAL | | | | rechecked | | LAB | | + + + + + + | Alkaline | 93 | 46 - 116 U/L | EXTERNAL | | | Phosphatase | | | LAB | | + + + + + + | ALT, | 29 | 16 - 63 U/L | EXTERNAL | | | External | | | LAB | | + + + + + + | AST, | 28 | <=38 U/L | EXTERNAL | | [...] | | + +---------+ + + POC GlucoseEmy (06/27/2015 7:14 AM PDT) + +-------+ + + + | Component | Value | Ref Range | Performed | Pathologist | | | | | At | Signature | + +-------+ + + + | Glucose, | 125 | 70 - 110 mg/dL | EXTERNAL [...] + +---------+ + + POC Glucose, [facility] (06/26/2015 9:05 PM PDT) + +-------+ + + + | Component | Value | Ref Range | Performed | Pathologist | | | | | At | Signature | + +-------+ + + + | Glucose, | 111 | 70 - 110 mg/dL | EXTERNAL [...] + +---------+ + + POC Glucose, [facility] (06/26/2015 4:41 PM PDT) + +-------+ + + + [...] + +---------+ + + POC Glucose, [facility] (06/26/2015 11:18 AM PDT) + +-------+ + + + [...] + +---------+ + + POC Glucose, [facility] (06/26/2015 7:49 AM PDT) + +-------+ + + + [...] + +---------+ + + POC Glucose, [facility] (06/26/2015 4:16 AM PDT) + +-------+ + + + [...] + +---------+ + + POC Glucose, [facility] (06/25/2015 9:50 PM PDT) + +-------+ + + + [...] + +---------+ + + POC Glucose, [facility] (06/25/2015 4:51 PM PDT) + +-------+ + + + [...] + +---------+ + + POC Glucose, [facility] (06/25/2015 8:34 AM PDT) + +-------+ + + + | Component | Value | Ref Range | Performed | Pathologist | | | | | At | Signature | + +-------+ + + + | Glucose, | 87 | 70 - 110 mg/dL [...] + +---------+ + + POC Glucose, [facility] (06/25/2015 3:59 AM PDT) + +-------+ + + + [...] + +---------+ + + POC Glucose, [facility] (06/24/2015 9:46 PM PDT) + +-------+ + + + | Component | Value | Ref Range | Performed | Pathologist | | | | | At | Signature | + +-------+ + + + | Glucose, | 111 | 70 - 110 mg/dL | EXTERNAL [...] + +---------+ + + POC Glucose, [facility] (06/24/2015 11:36 AM PDT) + +-------+ + + + [...] + +---------+ + + POC Glucose, [facility] (06/24/2015 8:00 AM PDT) + +-------+ + + + [...] + +---------+ + + POC Glucose, [facility] (06/24/2015 5:32 AM PDT) + +-------+ + + + | Component | Value | Ref Range | Performed | Pathologist | | | | | At | Signature | + +-------+ + + + | Glucose, | 109 | 70 - 110 mg/dL | EXTERNAL [...] + +---------+ + + POC Glucose, [facility] (06/23/2015 9:21 PM PDT) + +-------+ + + + [...] + +---------+ + + POC Glucose, [facility] (06/23/2015 5:11 PM PDT) + +-------+ + + + [...] + +---------+ + + POC Glucose, [facility] (06/23/2015 11:52 AM PDT) + +-------+ + + [...] + +---------+ + + POC Glucose, [facility] (06/23/2015 7:39 AM PDT) + +-------+ + + + [...] + +---------+ + + Hemogram With Platelets (06/23/2015 5:00 AM PDT) + +-------+ + + + | Component | Value | Ref Range | Performed | Pathologist | | | | | At | Signature | + +-------+ + + + | WBC | 10.4 | 4.6 - 10.5 | EXTERNAL | | | | | 1000/mm3 | LAB | | + +-------+ + + + | RBC | 3.78 | 4.36 - 5.83 | EXTERNAL | | | | | mil/mm3 | LAB | | + +-------+ + + + | HGB, | 11.5 | 13.1 - 17.4 | EXTERNAL | [...] +-------+ + + + | Platelet | 172 | 150 - 450 | EXTERNAL | | | Count | | 1000/mm3 | LAB | | | Plasma | | | | | + +-------+ + + + | MPV | 10.8 | 9.4 - 12.4 FL | EXTERNAL | | | | | | LAB | | + +-------+ + + + | RDW-SD | 46 | 34.0 - 57.0 fL | EXTERNAL [...] + +---------+ + + Basic Metabolic Panel (06/23/2015 5:00 AM PDT) + +-------+ + + [...] Gap | 11 | 7 - 16 | EXTERNAL | | | | | | LAB | | + +-------+ + + + | Calcium | 8 | 8.3 - 10.0 | EXTERNAL | | | | | mg/dL | LAB | | + +-------+ + + + | Glucose | 137 | 70 - 110 mg/dL | EXTERNAL | | | | | | LAB | | + +-------+ + + + | BUN, Bld | 15 | 5 - 26 mg/dL | EXTERNAL | | | | | | LAB | | + +-------+ + + + | Creatinine | 1.01 | 0.70 - 1.40 | EXTERNAL | [...] + +---------+ + + POC Glucose, [facility] (06/23/2015 2:21 AM PDT) + +-------+ + + + | Component | Value | Ref Range | Performed | Pathologist | | | | | At | Signature | + +-------+ + + + | Glucose, | 116 | 70 - 110 mg/dL | EXTERNAL [...]
--- OUTSIDE RECORDS SUMMARY | ~2019-02-17 | XMS | Encounter Summary ---
Demographics + + + | Address | [address] | | | [place] [address] | + + + | Home Phone [...] Providers + +------+ + | Care Field Rep Name | Role | Phone | + [...] Results | | 2018 | | [facility] | DO [address] | | | | | [facility] [address] | [place], [place] | | | | | [address] [place], | [address] | | | | | [place] [address] | [phone] | | | | | [phone] | | | +--------+ + + + [...] [place] | | | | | | [address] | | | | | | [phone] | | | | | | | | +--------+---------+ + + + | 02/26/ | Office | Urology | Lillie Fowler | | | 2018 | Visit | | [address] | | | | | | [address] | | | | | | [place] | | | | | | [address] | | | | | | [phone] | | | | | | | | +--------+---------+ + + + | 03/16/ | Office | Neurology | Theresa, | | | 2018 | Visit | | [address] | | | | | | [address] [place], | | | | | | [place] [address] | | | | | | [phone] | | | | | | | | +--------+---------+ + + + | 04/12/ | Office | Primary Care | Massimo Ramos | | | 2019 | Visit | | MD Fer [address] | | | | | | [place] | | | | | | [address] | | | | | | | | +--------+---------+ + + + | 10/03/ | Office | Neurology | Fabián Carias MD | | | 2019 | Visit | | [address] | | | | | | [place] | | | | | | [address] | | | | | | | [...]
--- OUTSIDE RECORDS SUMMARY | ~2019-02-17 | XMS | Encounter Summary ---
Demographics + + + | Address | [address] | | | [place] [address] | + + + | Home Phone [...] Providers + +------+ + | Care Clinical Data Analyst Name | Role | Phone | [...] + + | Authorized | Specialty | Surgery / | Diagnoses | [place], | [facility] | | | Services | General | Acquired | Horacio Tim DO | General | | | Required | Surgery | diverticulos | [address] | Surgery [address] | | | | | is of colon | [place], | [address] | | | | | Procedures | [place] | [place] | | | | | [place] | [address] | [place], [place] | | | | | | Phone: | [phone] | | | | | | [phone] | Phone: | | | | | | Fax: | [phone] | | | | | | [phone] | Fax: | | | | | | | [phone] | + + + + + + + Reason for Visit + + + | Reason | Comments | + + + | Follow-up | DM; chronic pain; EEg results | + + + Evaluate & Treat (Routine) +--------+--------+ + + + + | Status | Reason | Specialty | Diagnoses / | Referred By | Referred To | | | | | Procedures | Contact | Contact | +--------+--------+ + + + + | Closed | | Primary Care | Diagnoses | [place] [facility] | | | | | | [place] | [facility] | | | | | Office/outpa | MEDICAL | Primary Care | | | | | tient visit | [address] [address] | [address] | | | | | est | [address] | [place] | | | | | [address], | [address] | [address] | | | | | Authorized | [address] [place] | Phone: | | | | | For any | [place], [place] | [phone] | | | | | clinically | [address] | Fax: | | | | | necessary | Phone: | [phone] | | | | | Visits for | [phone] | | | | | | 365 days | Fax: | | | | | | AUTH NO: | [phone] | | | | | | [phone] | | | +--------+--------+ + + + + Encounter Details +--------+---------+ + + + | Date | Type | Department | Care Team | Description | +--------+---------+ + + + | 09/09/ | Office | [facility] | Horacio Silvestre, | Type 2 diabetes | | 2019 | Visit | [facility] | DO [address] [place] | mellitus with | | | | [facility] | [facility], [place] | diabetic | | | [address] [place], | [address] | polyneuropathy, with | | | | [place] [address] | [phone] | long-term current | | | | [phone] | | use of insulin (HCC) | | | | | | (Primary Dx); | | | | | | Multilevel | | | | | | degenerative disc | | | | | | disease; Acquired | | | | | | diverticulosis of | | | | | | colon; | | | | | | Atherosclerosis of | | | | | | [place] coronary | | | | | | artery of [place] | | | | | | heart without angina | | | | | | pectoris; Insomnia | | | | | | secondary to chronic | | | | | | pain; penitentiary | | | | | | current use of | | | | | | aspirin; Current use | | | | | | of beta marly; On | | | | | [...] + | Blood Pressure | 122/72 | 09/09/2018 9:41 AM | | | | | PDT | | + + + + + | Pulse | 94 | 09/09/2018 9:41 AM | | | | | PDT | | + + + + + | Temperature | - | - | | + + + + + | Respiratory Rate | 18 | 09/09/2018 9:41 AM | | | | | PDT | | + + + + + | Oxygen Saturation | 96% | 09/09/2018 9:41 AM | | | | | PDT | | + + + + + | Inhaled Oxygen | - | - | | | Concentration | | | | + + + + + | Weight | 88.5 kg (195 lb) | 09/09/2018 9:41 AM | | | | | PDT | | + + + + + | Height | 167.6 cm (5' 6") | 09/09/2018 9:41 AM | | | | | PDT | | + + + + + | Body Mass Index | 31.47 | 09/09/2018 9:41 AM | | | | | PDT [...] documented as of this encounter Progress Notes KonradHoracioDO - 09/09/2018 10:30 AM PDTFormatting of this note might be different f rom the original. Patient ID: Geraldo Mcfadden is a 78 y.o. year old male Chief Complaint Patient presents with Follow-up DM; chronic pain; EEg results Assessment and Plan: 1. Type 2 diabetes mellitus with diabetic polyneuropathy, with long-term current use of ins ulin (HCC) - pregabalin (LYRICA) 300 MG capsule; Take 1 capsule by mouth 2 times daily. Dispense: 180 capsule; Refill: 1 2. 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 Dispense: 180 capsule; Refill: 1 3. Acquired diverticulosis of colon - * [facility] - AMB Referral 4. Atherosclerosis of [place] coronary artery of [place] heart without angina pectoris Stable 5. Insomnia secondary to chronic pain - traZODone (DESYREL) 100 mg tablet; Take 1 tablet by mouth nightly. Dispense: 90 tablet; Refill: 3 6. 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 Current use of beta marly Stable 8. On potassium wasting diuretic therapy Stable Subjective: Diabetes He presents for his follow-up diabetic visit. He has type 2 diabetes mellitus. His disease course has been stable. There are no hypoglycemic associated symptoms. Associated symptoms i nclude foot paresthesias. Pertinent negatives for diabetes include no chest pain, no fatigue , no foot ulcerations, no polydipsia, no polyphagia, no polyuria, no weakness and no weight loss. There are no hypoglycemic complications. Diabetic complications include autonomic neur opathy, a CVA, heart disease and peripheral neuropathy. Pertinent negatives for diabetic com plications include no impotence, nephropathy, PVD or retinopathy. Current diabetic treatment includes insulin injections. He is compliant with treatment all of the time. His weight is stable. He is following a diabetic diet. There is no change in his home blood glucose trend. An DENY inhibitor/angiotensin II receptor marly is being taken. Hand Pain The pain is present in the left hand, back and right hand. This is a chronic problem. The c soha episode started more than 1 year ago. There has been no history of extremity trauma. The problem occurs constantly. The quality of the pain is described as burning. The pain is moderate. Associated symptoms include numbness, stiffness and tingling. The symptoms are agg ravated by activity. He has tried oral narcotics for the symptoms. The treatment provided mo derate relief. His past medical history is significant for osteoarthritis. Abdominal Pain This is a chronic problem. The current episode started more than 1 year ago. The onset qual ity is gradual. The problem occurs constantly. The problem has been unchanged. The pain is l ocated in the suprapubic region. The pain is moderate. The quality of the pain is dull. Pert inent negatives include no constipation, diarrhea or weight loss. The pain is aggravated by certain positions. He has tried oral narcotic analgesics for the symptoms. The treatment pro vided mild relief. His past medical history is significant for abdominal surgery. Allergies Allergen Reactions Ambien [Zolpidem] Anaphylaxis Past [...] CATARACT REMOVAL; Surgeon: Tay Kern MD; Location: [facility] SUR[facility]ERY Azul Azul [employer] MOHS [...] medications for this visit. Objective: Vitals: BP 122/72 | Pulse 94 | Resp 18 | Ht 1.676 m (5' 6") | Wt 88.5 kg (195 lb) | SpO2 96% | BMI 31.47 kg/m Physical Exam Constitutional: He appears well-developed and well-nourished. No distress. Cardiovascular: Normal rate, regular rhythm and normal heart sounds. Exam reveals no gallop and no friction rub. No murmur heard. Pulmonary/Chest: Effort normal and breath sounds normal. No respiratory distress. He has no wheezes. He has no rales. Musculoskeletal: Lumbar back: He exhibits tenderness, bony tenderness and pain. He exhibits normal rang e of motion, no swelling, no edema, no deformity, no laceration, no spasm and normal pulse. Vitals reviewed. This note was transcribed using [...] [place] | | | | | | [address] | | | | | | [phone] | | | | | | | | +--------+---------+ + + + | 02/26/ | Office | Urology | Lillie Fowler | | | 2018 | Visit | | [address] | | | | | | [address] | | | | | | [place], [place] | | | | | | [address] | | | | | | [phone] | | | | | | | | +--------+---------+ + + + | 03/16/ | Office | Neurology | Theresa, | | | 2018 | Visit | | SHONDA M[address] | | [address] [place], | | | | | | [place] [address] | | | | | | [phone] | | | | | | | | +--------+---------+ + + + | 04/12/ | Office | Primary Care | Massimo Ramos | | | 2019 | Visit | | MD Fer [address] | | | | | | [address] [place], [place] | | | | | | [address] | | | | | | | | +--------+---------+ + + + | 10/03/ | Office | Neurology | Fabián Carias MD | | | 2020 | Visit | | [address] | | | | | | [place] | | | | | | [address] | | | | | | | | +--------+---------+ + + + + + +--------+ + + | Name | Type | Priori | Associated Diagnoses | Order Schedule | | | | ty | | | + + +--------+ + + | * [facility] | Outpatient | Routin | Acquired | Ordered: 09/09/2018 | | [facility] | Referral | e | diverticulosis of | | | - AMB Referral | | | colon | | + + +--------+ + + [...] | | care | | | Instructional Support Technician-C | | | | | | [...] | | care | | | Instructional Support Technician-C | | | | | | [...] | | care | | | Instructional Support Technician-C | | | | | | [...] | | care | | | Instructional Support Technician-C | | | | | | [...] (HCC) - Primary | + + | Multilevel degenerative disc disease Degeneration of intervertebral disc, site | | unspecified | + + | Acquired diverticulosis of colon Diverticulosis of colon (without mention of | | hemorrhage) | + + | Atherosclerosis of [place] coronary artery of [place] heart without angina pectoris | + + | Insomnia secondary to chronic pain Other chronic pain | + + | intermediate card tender current use of aspirin Encounter for long-term (current) use of aspirin | + + | Current use of [...]
--- OUTSIDE RECORDS SUMMARY | ~2019-02-17 | XMS | Encounter Summary ---
Demographics + + + | Address | [address] | | | [place] [address] | + + + | Home Phone [...] Providers + +------+ + | Care Supervisor Slate Splitting Name | Role | Phone | + [...] | | | CENTER [address] | [facility] | | | | | DR [place], [place] | [place] [address] | | | | | [address] | [phone] | | | | | [phone] | | | +--------+ + + + [...] [place] | | | | | | [address] | | | | | | [phone] | | | | | | | | +--------+---------+ + + + | 02/26/ | Office | Urology | Lillie Fowler | | | 2018 | Visit | | [address]ILLIE [address] | | | | | | [address] | | | | | | [place] | | | | | | [address] | | | | | | [phone] | | | | | | | | +--------+---------+ + + + | 03/16/ | Office | Neurology | Theresa, | | | 2018 | Visit | | SHONDA M[address]ney [address] | [address] [place], | | | | | | [place] [address] | | | | | | [phone] | | | | | | | | +--------+---------+ + + + | 04/12/ | Office | Primary Care | Massimo Ramos | | | 2019 | Visit | | MD [facility] [address] | | | | | | [place] | | | | | | [address] | | | | | | | | +--------+---------+ + + + | 10/03/ | Office | Neurology | Fabián Carias MD | | | 2019 | Visit | | [address] | | | | | | [place] | | | | | | [address] | | | | | | | [...] | | | care | | | Passementerie Worker-C | | | | | | [...] | | | care | | | Passementerie Worker-C | | | | | | [...] | | | care | | | Passement[employer] Worker-C | | | | | | [...] | | | care | | | Passementerie Worker-C | | | | | | [...] - 1.030 | EXTERNAL | | | [place], | | | LAB | | | [...]
--- OUTSIDE RECORDS SUMMARY | ~2019-02-17 | XMS | Encounter Summary ---
Demographics + + + | Address | [address] | | | [place] [address] | + + + | Home Phone [...] [facility] [place] | | | and [place] | + [...] Team Providers + +------+ + | Care Private Secretary Name | Role | Phone | + [...] + + | 07/24/ | Hospital | [facility] | Mervat Yun MD | Septic shock ([facility]); | | 2019 - | Encounter | MED CTR SURGICAL | [address] | Acute respiratory | | | | [address] [place] | [place] | failure with hypoxia | | 07/27/ | | [place] [address] | [phone] | ([facility]); HCAP | | 2019 | | [phone] | | (healthcare-associat | | | | | María Adhikari MD | ed pneumonia); Acute | | | | | [address] | renal failure, | | | | | [place] | unspecified acute | | | | | [id number] | renal failure type | | | | | | ([facility]); 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, with | | | | | | long-term current | | | | | | use of insulin ([facility]) | +--------+ + + + + [...] of beta marly Panlobular emphysema Atherosclerosis of [place] coronary artery of [place] heart without angina pectoris On potassium wasting [...] high density subpleural nodular foci are present 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 Problem-Oriented Hospital Course: Septic shock likely 2/2 mulifocal pneumonia/HCAP -Presented to [facility] with encephalopathy, hypoxia, VIKAS, found to have multifo madhu pneumonia on chest x-ray -He was treated with ceftriaxone and clindamycin, given 2 L of normal saline, central line and arterial line were placed,and he was transferred to [facility] - Switched to vanc/cefepime on arrival [...] Specialty: Family Medicine Contact information: [address] [facility] [address] Discharge Medications New Medications Details [...] signed by: Christ West MD, 07/27/2018 11:31 [facility] documented in this encounter Discharge Instructions Instructions [...] questions answered. Wheeled out in chair by MORTGAGE COLLECTOR with all b elongings. Darnell Dobbins MD - 07/26/2018 11:38 AM PDTFormatting of this note might be different from the origi nal. [facility] PMG Hospitalist Progress Note Geraldo Mcfadden is a 78 y.o. male ASSESSMENT and PLAN: Active Hospital Problems Diagnosis Septic shock Acute respiratory failure with hypoxia HCAP (healthcare-associated pneumonia) ARF (acute renal failure) Panlobular emphysema Resolved Hospital Problems No resolved problems to display. Septic shock likely 2/2 mulifocal pneumonia/HCAP -Presented to [facility] with mild encephalopathy, hypoxia, found to have multifo madhu pneumonia on chest x-ray -He was treated with ceftriaxone and clindamycin, given 2 L of normal saline, central line and arterial line were placed, and he was transferred to [facility] - Switched to vanc/cefepime on arrival [...] outlined above. Christ West 07/26/2018 11:38 [facility] Reinier Melgar Pha rmD - 07/26/2018 [...] Value Units Date/Time Respiratory pathogen panel, NAAT [[id number]] Collected: 07/25/18 0011 Order Status: Resulted Lab Status: In process Updated: 07/25/18 0029 Specimen: Tissue from Nasopharynx Culture, Blood [[id number]] Collected: 07/24/18 2310 Order Status: Completed Lab Status: Preliminary result Updated: 07/25/18 1231 Specimen: Peripheral Blood Culture No growth: Monitored continually by instrument for 5 days Culture, MRSA [[id number]] (Normal) Collected: 07/24/18 2230 Order Status: Completed Lab Status: Final result Updated: 07/26/18 0750 Specimen: Tissue from Nares Culture Negative for MRSA by chromogenic agar method Culture, Blood [[id number]] Collected: 07/24/18 2220 Order Status: Completed Lab Status: Preliminary result Updated: 07/25/18 1051 Specimen: Peripheral Blood Culture No growth: Monitored continually by instrument for 5 days Culture, Respiratory, Lower, Smear [[id number]] Order Status: Sent Lab Status: No result Specimen: Body Fluid from Sputum, Expectorated Culture, Blood [[id number]] Collected: 07/24/18 1107 Order Status: Completed Lab Status: Preliminary result Updated: 07/25/18 1121 Specimen: Peripheral Blood Culture No growth: Monitored continually by instrument for 5 days Culture, Blood [[id number]] Collected: 07/24/18 1050 Order Status: Completed Lab Status: Preliminary result Updated: 07/25/18 112 Specimen: Peripheral Blood Culture No growth: Monitored continually by instrument for 5 days Culture, MRSA [[id number]] Collected: 07/15/18 0036 Order Status: Completed Lab Status: Final result Updated: 07/17/18 0749 Specimen: Tissue from Nares Culture 1+ Staphylococcus aureus,Methicillin resistant (MRSA) Culture, Blood [[id number]] Collected: 07/14/18 1230 Order Status: Completed Lab Status: Final result Updated: 07/19/18 1321 Specimen: Peripheral Blood Culture No growth after 5 days incubation. Culture, Blood [[id number]] Collected: 07/14/18 1218 Order Status: Completed Lab [...] maintenance vancomycin 1000 mg IVPB q24h at [facility] starting 07/25 @ 120 0 2. Vancomycin [...] medication list or bottles X Doctor's office: [facility]S from 07/17/18 X Pharmacy list names: [facility] X [facility] KEG FILLER (Prescription Monitoring Program) X Other sources: Verbal [...] Prior to Admission Sig: Patient taking differently REGIONAL CLIMATE CHANGE ANALYST as: Insulin glargine 100 units/mL inj 18 [...] he does not have constipation Best possible REGIONAL CLIMATE CHANGE ANALYST medication list after pharmacy review: PT REPORTED [...] performed and electronically signed by Luh Beauchamp, Shaker Repairer 13:36 Reviewed by Celine Garcia, PharmD 07/25/2018 15:08 Christ Dobbins MD - 07/25/2018 8:59 AM PDT [facility] PMG Hospitalist Progress Note Geraldo Mcfadden is a 78 y.o. male ASSESSMENT and PLAN: Active Hospital Problems Diagnosis Septic shock Acute respiratory failure with hypoxia HCAP (healthcare-associated pneumonia) ARF (acute renal failure) Resolved Hospital Problems No resolved problems to display. Septic shock likely 2/2 mulifocal pneumonia/HCAP -Presented to [facility] with mild encephalopathy, hypoxia, found to have multifo madhu pneumonia on chest x-ray -He was treated with ceftriaxone and clindamycin, given 2 L of normal saline, central line and arterial line were placed, and he was transferred to [facility] - Switched to vanc/cefepime on arrival [...] pH, Urine 5.0 5.0 - 7.0 Specific [place] 1.020 1.003 - 1.030 Protein, Urine 30 [...] the patient's care as outlined above. Christ [place] 07/25/2018 8:59 [facility] aillard, Terra BourneD - 07/25/2018 3:15 [...] Value Units Date/Time Respiratory pathogen panel, NAAT [[id number]] Collected: 07/25/18 0011 Order Status: Sent Lab Status: In process Updated: 07/25/18 0029 Specimen: Tissue from Nasopharynx Culture, Blood [[id number]] Collected: 07/24/18 2310 Order Status: Sent Lab Status: In process Updated: 07/25/18 0028 Specimen: Peripheral Blood Culture, MRSA [[id number]] Collected: 07/24/182229 Order Status: Sent Lab Status: In process Updated: 07/24/182229 Specimen: Tissue from Nares Culture, Blood [[id number]] Collected: 07/24/182219 Order Status: Sent Lab Status: In process Updated: 07/24/182229 Specimen: Peripheral Blood Culture, Respiratory, Lower, Smear [[id number]] Order Status: Sent Lab Status: No result Specimen: Body Fluid from Sputum, Expectorated Culture, Blood [[id number]] Collected: 07/24/18 1107 Order Status: Completed Lab Status: Preliminary result Updated: 07/24/18 232 Specimen: Peripheral Blood Culture No growth: Monitored continually by instrument for 5 days Culture, Blood [[id number]] Collected: 07/24/18 1050 Order Status: Completed Lab Status: Preliminary result Updated: 07/24/18 232 Specimen: Peripheral Blood Culture No growth: Monitored continually by instrument for 5 days Culture, MRSA [[id number]] Collected: 07/15/18 0036 Order Status: Completed Lab Status: Final result Updated: 07/17/18 0749 Specimen: Tissue from Nares Culture 1+ Staphylococcus aureus,Methicillin resistant (MRSA) Culture, Blood [[id number]] Collected: 07/14/18 1230 Order Status: Completed Lab Status: Final result Updated: 07/19/18 1321 Specimen: Peripheral Blood Culture No growth after 5 days incubation. Culture, Blood [[id number]] Collected: 07/14/18 1218 Order Status: Completed Lab [...] maintenance vancomycin 1000 mg IVPB q24h at [facility] starting 07/25 @ 120 0 2. Vancomycin [...] [place] | | | | | | [address] | | | | | | [phone] | | | | | | | | +--------+---------+ + + + | 02/26/ | Office | Urology | Lillie Fowler | | | 2019 | Visit | | LILLIE Lopez [address] | | | | | | [address] | | | | | | [place] | | | | | | [address] | | | | | | [phone] | | | | | | | | +--------+---------+ + + + | 03/16/ | Office | Neurology | Theresa, | | | 2018 | Visit | | SHONDA Mckinney [address] | | | | [address] [place], | | | | | | [place] [address] | | | | | | [phone] | | | | | | | | +--------+---------+ + + + | 04/12/ | Office | Primary Care | Massimo Ramos | | | 2019 | Visit | | MD Fer [address] | | | | | | [place] | | | | | | [address] | | | | | | | | +--------+---------+ + + + | 10/03/ | Office | Neurology | Fabián Carias MD | | | 2019 | Visit | | [address] | | | | | | [place] | | | | | | [address] | | | | | | | [...] | care | | | Director Of Web Marketing-C | | | | | | | [...] | care | | | Director Of Web Marketing-C | | | | | | | [...] | care | | | Director Of Web Marketing-C | | | | | | | [...] | care | | | Director Of Web Marketing-C | | | | | | | [...] [address] | [place] | [phone] | | [facility] | | [address] | | | - LABORATORY | | [...] [address] | [place] | [phone] | | [facility] | | [address] | | | - LABORATORY | | [...] 20 | 9 - 23 mg/dL | [facility] | | | | | | [facility] | | | | | | [facility] | | | | | | [facility] - | | | | | | LABORATORY | | + + + + + + | Creatinine | 1.02 | 0.70 - 1.30 | [facility] | | | | | mg/dL | [facility] | | | | | | [facility] | | | | | | C[facility] - | | | | | | LABORATORY | | + + + + + + | eGFR if not | >60Comment: GLOMERULAR | >=60 | [facility] | | | | FILTRATION | mL/min/1.73m2 | [facility] | | | [place] | RATE,ESTIMATED | | MEDICAL | | | | mL/min/1.19a6Hujk than | | CENTER - | | [...] + | [facility] | [address] | [place] | [phone] | | [facility] | | [address] | | | - LABORATORY | | [...] [address] | [place] | [phone] | | [facility] | | [address] | | | - LABORATORY | | [...] [address] | [place] | [phone] | | [facility] | | [address] | | | - LABORATORY | | [...] + | [facility] | [address] | [place] | [phone] | | [facility] | | [address] | | | - LABORATORY | | [...] | | POC | | | [facility] | | | | | [...] ST. | [address] | [place], [place] | [phone] | | [facility] | | [address] | | | - LABORATORY | | [...] [address] | [place] | [phone] | | [facility] | | [address] | | | - LABORATORY | | [...] [address] | [place] | [phone] | | [facility] | | [address] | | | - LABORATORY | | [...] | | | FILTRATION | mL/min/1.73m2 | [facility] | | | [place] | RATE,ESTIMATED | | MEDICAL | | | | mL/min/1.21w3Snmx than | | CENTER - | | [...] ST. | [address] | [place], [place] | [phone] | | [facility] | | [address] | | | - LABORATORY | | [...] | Eosinophils | | K/uL | [facility] | | | | | | MEDICAL [...] + | [facility] | [address] | [place] | [phone] | | [facility] | | [address] | | | - LABORATORY | | [...] ST. | [address] | [place], [place] | [phone] | | [facility] | | [address] | | | - LABORATORY | | [...] [address] | [place] | [phone] | | [facility] | | [address] | | | - LABORATORY | | [...] [address] | [place] | [phone] | | [facility] | | [address] | | | - LABORATORY | | [...] + | [facility] [facility] | [address] | [place] | [phone] | | [facility] | | [address] | | | - LABORATORY | | [...] [address] | [place] | [phone] | | [facility] | | [address] | | | - LABORATORY | | [...] 1.47 (H) | 0.70 - 1.30 | [facility] | | | | | mg/dL | [...] mL/min/1.73m2 | [facility] | | | [place] | RATE,ESTIMATED | | MEDICAL | | | | mL/min/1.44d7Caoj than | | CENTER - | | [...] [address] | [place] | [phone] | | [facility] | | [address] | | | - LABORATORY | | [...] | [address] | [place] | [phone] | | [facility] | | [address] | | | - LABORATORY | | [...] | | | PCR | | | [facility] | | | | | [...] [address] | [place] | [phone] | | [facility] | | [address] | | | - LABORATORY | | [...] ST. | [address] | [place], [place] | [phone] | | [facility] | | [address] | | | - LABORATORY | | [...] [address] | [place] | [phone] | | [facility] | | [address] | | | - LABORATORY | | [...] [address] | [place] | [phone] | | [facility] | | [address] | | | - LABORATORY | | [...] [address] | [place] | [phone] | | [facility] | | [address] | | | - LABORATORY | | [...] + | [facility] | [address] | [place] | [phone] | | [facility] | | [address] | | | - LABORATORY | | [...] [address] | [place] | [phone] | | [facility] | | [address] | | | - LABORATORY | | [...] [address] | [place] | [phone] | | [facility] | | [address] | | | - LABORATORY | | [...] [address] | [place] | [phone] | | [facility] | | [address] | | | - LABORATORY | | [...] ST. | [address] | [place] | [phone] | | [facility] | | [address] | | | - LABORATORY | | [...] 2.00 (H) | 0.70 - 1.30 | [facility] | | | | | mg/dL | [facility] | | | | | | MEDICAL | | | | | | CENTER - | | | | | | LABORATORY | | + + + + + + | eGFR if not | 32 (L)Comment: | >=60 | [facility] | | | | GLOMERULAR FILTRATION | mL/min/1.73m2 | [facility] | | | [place] | RATE,ESTIMATED | | MEDICAL | | | | mL/min/1.79a0Ltvc than | | CENTER - | | [...] [address] | [place] | [phone] | | [facility] | | [address] | | | - LABORATORY | | [...] | | | | | NPO, Daytime [id number] Use NIGHT | | | | | | | DOSE for doses scheduled: | | | | | | | HS, 3AM, Nighttime 2708-3646 If | | | | | | [...]
--- OUTSIDE RECORDS SUMMARY | ~2019-02-17 | XMS | Encounter Summary ---
Demographics + + + | Address | [address] | | | [place] [address] | + + + | Home Phone [...] Team Providers + +------+ + | Care Mechanical Engineering Manager Name | Role | Phone | + +------+ + PCP | Unavailable | + +------+ + Encounter Details +--------+ + + + + | Date | Type | Department | Care Team | Description | +--------+ + + + + | 09/18/ | Hospital | [facility] | Ryan Gutiérrez | | | 2009 | Encounter | H[facility] XRAY [address] | [address] | | | | | [address] | [address] | | | | | [place], [place] | [place] [address] | | | | | [address] | [phone] | | | | | [phone] | | | +--------+ + + + [...] [place] | | | | | | [address] | | | | | | [phone] | | | | | | | | +--------+---------+ + + + | 02/26/ | Office | Urology | Lillie Fowler | | | 2018 | Visit | | LILLIE Lopez [address] | | | | | | [address] | | | | | | [place], [place] | | | | | | [address] | | | | | | [phone] | | | | | | | | +--------+---------+ + + + | 03/16/ | Office | Neurology | Theresa, | | | 2018 | Visit | | SHONDA Mckinney [address] | | | | [address] [place], | | | | | | [place] [address] | | | | | | [phone] | | | | | | | | +--------+---------+ + + + | 04/12/ | Office | Primary Care | Massimo Ramos | | | 2019 | Visit | | MD Fer [address] | | | | | | [place] | | | | | | [address] | | | | | | | | +--------+---------+ + + + | 10/03/ | Office | Neurology | Fabián Carias MD | | | 2019 | Visit | | [address] | | | | | | [place] | | | | | | [address] | | | | | | | [...] | | | care | | | Charhouse Worker-C | | | | | | [...] | | | care | | | Charhouse Worker-C | | | | | | [...] | | | care | | | Charhouse Worker-C | | | | | | [...] | | | care | | | Charhouse Worker-C | | | | | | | linical | + +--------+ +---+-----+ + + + | Note: Pt will | | check CBG's daily x1 | | Pt will take Lantis as | | prescribed | + + documented as of this encounter Visit Diagnoses Not on filedocumented in this encounter"
--- OUTSIDE RECORDS SUMMARY | ~2019-02-17 | XMS | Encounter Summary ---
Demographics + + + | Address | [address] | | | [place] [address] | + + + | Home Phone [...] Team Providers + +------+ + | Care Fax 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 Name | Role | Phone [...] | | [address] [place], | [address] | | | | | [place] [address] | [phone] | | | | | [phone] | | | +--------+ + + + [...] [place] | | | | | | [address] | | | | | | [phone] | | | | | | | | +--------+---------+ + + + | 02/26/ | Office | Urology | Lillie Fowler | | | 2018 | Visit | | LILLIE Lopez [address] | | | | | [address] | | | | | | [place] | | | | | | [address] | | | | | | [phone] | | | | | | | | +--------+---------+ + + + | 03/16/ | Office | Neurology | Theresa, | | | 2018 | Visit | | SHONDA [address] | | | | | [address] [place], | | | | | | [place] [address] | | | | | | [phone] | | | | | | | | +--------+---------+ + + + | 04/12/ | Office | Primary Care | Massimo Ramos | | | 2019 | Visit | | MD Fer [address] | | | | | | [place] | | | | | | [address] | | | | | | | | +--------+---------+ + + + | 10/03/ | Office | Neurology | Fabián Carias MD | | | 2019 | Visit | | [address] | | | | | | [place] | | | | | | [address] | | | | | | | [...] | | | care | | | Executive Director Sheltered Workshop-C | | | | | | | [...] | | | care | | | Executive Director Sheltered Workshop-C | | | | | | | [...] | | | care | | | Executive Director Sheltered Workshop-C | | | | | | | [...] | | | care | | | Executive Director Sheltered Workshop-C | | | | | | | linical | + +--------+ +---+-----+ + + + | Note: Pt will | | check CBG's daily x1 | | Pt will take Lantis as | | prescribed | + + documented as of this encounter Visit Diagnoses Not on filedocumented in this encounter"
--- OUTSIDE RECORDS SUMMARY | ~2019-02-17 | XMS | Encounter Summary ---
Demographics + + + | Address | [address] | | | [place] [address] | + + + | Home Phone [...] + +------+ + | Care Manager Of Warehouse Name | Role | Phone | + [...] | | | | type | [place] [address] | [place] [address] | | | | | Diaphoresis | Phone: | Phone: | | | | | | [phone] | [phone] | | | | | LEUKOCYTOSIS | Fax: | Fax: | | | | | , | [phone] | [phone] | | | | | UNSPECIFIED | | | | | | | TYPE | | | | | | | Procedures | | | | | | | New | | | | | | | Outpatient | | | | | | | visit | | | | | | | [address] | | | +--------+ + + + [...] | [address] [place], [place] | [place] [address] | Diaphoresis; | | | | [address] | [phone] | Weakness of back | | | | [phone] | | | +--------+ + + + [...] | | use of insulin ([facility]) | | | | | | + [...] | | use of insulin ([facility]) | | | | | | + [...] | | | | | | disease, head and neck surgeon | | | | | | | [...] [place] | | | | | | [address] | | | | | | [phone] | | | | | | | | +--------+---------+ + + + | 02/26/ | Office | Urology | Lillie Fowler | | | 2018 | Visit | | LILLIE Lopez [address] | | | | | [address] | | | | | | [place], [place] | | | | | | [address] | | | | | | [phone] | | | | | | | | +--------+---------+ + + + | 03/16/ | Office | Neurology | Theresa, | | | 2018 | Visit | | SHONDA Mck[address]ney [address] | | | | | [address] [place], | | | | | | [place] [address] | | | | | | [phone] | | | | | | | [...] [place] | | | | | | [address] | | | | | | | [...] | | | care | | | Mechanical Drafter-C | | | | | | [...] | | | care | | | Mechanical Drafter-C | | | | | | [...] | | | care | | | Mechanical Drafter-C | | | | | | [...] | | | care | | | Mechanical Drafter-C | | | | | | [...] | | Note - | | | Arnda, | | | Lab In | | [...] J?MRN: | | | | | | [id number] | | | [id number] | | | ecurit | | | [...] | | | [place] | | | Bowling Alley Manager | | | al | | | [...] - 1.030 | [place] | | | [place] | | | [facility] | | | [...] + + | [facility] | [address] | [place] [address] | [phone] | | HOSPITAL LABORATORY | | | [...] + + | [facility] | [address] | [place] [address] | [phone] | | HOSPITAL LABORATORY | | | | + + + + + ECG 12 lead (02/28/2018 10:43 AM PST) + + | Specimen | + + | | + + + + + | Narrative | Performed At | + + + | Heart Rate: 74 | [facility] | | bpmQRS Interval: 98 msQT Interval: 380 msQTC Interval: 422 msP [place]: | TRACEMASTER | | 9 degQRS [place]: -21 degT Wave [place]: 11 degP-R Interval: 196 msec- | | | BORDERLINE ECG -SINUS RHYTHM [Now Present]BORDERLINE LEFT AXIS | | | DEVIATION [Now Present]CONSIDER RVH OR POSTERIOR INFARCT [Less | | | Prom.]SIGNIFICANT RHYTHM AND ECG CONTOUR CHANGES | | |T Wave [place]: 11 deg | | |P-R Interval: 196 [...] | Present (A) | Not Present | [facility] | | | Granulation | | | [...] + + | [facility] | [address] | [place] [address] | [phone] | | HOSPITAL LABORATORY | | | [...] + + | [facility] | [address] | [place] [address] | [phone] | | HOSPITAL LABORATORY | | | [...] | mL/min/1.73m2 | [facility] | | | [facility] | RATE,ESTIMATED | | HOSPITAL | | | | mL/min/1.65e8Pxau than | | LABORATORY | | | [...] + + | [facility] | [address] | [place] [address] | [phone] | | HOSPITAL LABORATORY | | | [...] + + | [facility] | [address] | [place] [address] | [phone] | | HOSPITAL LABORATORY | | | [...]
--- OUTSIDE RECORDS SUMMARY | ~2019-02-17 | XMS | Encounter Summary ---
Demographics + + + | Address | [address] | | | [place] [address] | + + + | Home Phone [...] Team Providers + +------+ + | Care Pickling Operator Name | Role | Phone | [...] | | [place] | [place] [address] | | | | | [address] | [phone] | | | | | [phone] | | | +--------+ + + + [...] [place] | | | | | | [address] | | | | | | [phone] | | | | | | | | +--------+---------+ + + + | 02/26/ | Office | Urology | Malcolm Lillie | | | 2018 | Visit | | [address] | | | | | | [address] | | | | | | [place] | | | | | | [address] | | | | | | [phone] | | | | | | | | +--------+---------+ + + + | 03/16/ | Office | Neurology | Theresa, | | | 2018 | Visit | | [address] | | | | | | [address] [place], | | | | | | [place] [address] | | | | | | [phone] | | | | | | | | +--------+---------+ + + + | 04/12/ | Office | Primary Care | Massimo Ramos | | | 2019 | Visit | | MD Fer [address] | | | | | | [address] [place] | | | | | | [address] | | | | | | | | +--------+---------+ + + + | 10/03/ | Office | Neurology | Fabián Carias MD | | | 2019 | Visit | | [address] | | | | | | [place] | | | | | | [address] | | | | | | | [...] | | | care | | | Bush Hog Operator-C | | | | | | [...] | | | care | | | Bush Hog Operator-C | | | | | | [...] | | | care | | | Bush Hog Operator-C | | | | | | [...] | | | care | | | Bush Hog Operator-C | | | | | | [...] post | | | cholecystectomy. JOB #: [id number] Digitally Released by: Howard | | | [...] | | | | | JOB #: [id number] | | Digitally Released by: Drew Lawrence [...] 3. | | | Cardiomegaly. JOB #: [id number] Digitally Released by: Howard | | | [...] | | | | | JOB #: [id number] | | Digitally Released by: Drew Lawrence | | | | | | Read By: DREW LAWRENCE MD | | Date: 12/25/2016 09:39 | | | + + documented in this encounter Visit Diagnoses Not on filedocumented in this encounter"
--- OUTSIDE RECORDS SUMMARY | ~2019-02-17 | XMS | Encounter Summary ---
Demographics + + + | Address | [address] | | | [place] [address] | + + + | Home Phone [...] Providers + +------+ + | Care Director Hospice Operations Name | Role | Phone | + +------+ + | Ryan Gutiérrez MD | PCP | | + +------+ + Encounter Details +--------+ + + + + | Date | Type | Department | Care Team | Description | +--------+ + + + + | 03/07/ | Hospital | [facility] | Horacio Silvestre, | | | 2017 | Encounter | [facility] | DO [address] | | | | | [facility] [address] | [place], [place] | | | | | [address] [place], | [address] | | | | | [place] [address] | [phone] | | | | | [phone] | | | +--------+ + + + [...] [place] | | | | | | [address] | | | | | | [phone] | | | | | | | | +--------+---------+ + + + | 02/26/ | Office | Urology | Lillie Fowler | | | 2018 | Visit | | [address] | | | | | | [address] | | | | | | [place], [place] | | | | | | [address] | | | | | | [phone] | | | | | | | | +--------+---------+ + + + | 03/16/ | Office | Neurology | Theresa, | | | 2018 | Visit | | [address] | | | | | | [address] [place], | | | | | | [place] [address] | | | | | | [phone] | | | | | | | | +--------+---------+ + + + | 04/12/ | Office | Primary Care | Massimo Ramos | | | 2019 | Visit | | MD Fer [address] | | | | | | [address] [place], [place] | | | | | | [address] | | | | | | | | +--------+---------+ + + + | 10/03/ | Office | Neurology | Fabián Carias MD | | | 2019 | Visit | | [address] | | | | | | [place], [place] | | | | | | [address] | | | | | | | [...] | | | care | | | Livestock Agent-C | | | | | | [...] | | | care | | | Livestock Agent-C | | | | | | [...] | | | care | | | Livestock Agent-C | | | | | | [...] | | | care | | | Livestock Agent-C | | | | | | | linical | + +--------+ +---+-----+ + + + | Note: Pt will | | check CBG's daily x1 | | Pt will take Lantis as | | prescribed | + + documented as of this encounter Visit Diagnoses Not on filedocumented in this encounter"
--- OUTSIDE RECORDS SUMMARY | ~2019-02-17 | XMS | Encounter Summary ---
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 Dispense: 84 tablet; Refill: 0 7. care home current use of non-steroidal anti-inflammatories (NSAID) - [...] CATARACT REMOVAL; Surgeon: Tay Kern MD; Location: [facility] MOHS SURGERY Left [...] [place] | | | | | | [address] | | | | | | [phone] | | | | | | | | +--------+---------+ + + + | 02/26/ | Office | Urology | Lillie Fowler | | | 2019 | Visit | | [address] | | | | | | [address] | | | | | | [place] | | | | | | [address] | | | | | | [phone] | | | | | | | | +--------+---------+ + + + | 03/16/ | Office | Neurology | Theresa, | | | 2018 | Visit | | [address] | | | | | | [facility] [place], | | | | | | [place] [address] | | | | | | [phone] | | | | | | | | +--------+---------+ + + + | 04/12/ | Office | Primary Care | Massimo Ramos | | | 2019 | Visit | | MD Fer [address] | | | | | | [place] | | | | | | [address] | | | | | | | | +--------+---------+ + + + | 10/03/ | Office | Neurology | Fabián Carias MD | | | 2019 | Visit | | [address] | | | | | | [place] | | | | | | [address] | | | | | | | [...] | | care | | | Emergency Dispatcher-C | | | | | | | [...] | | care | | | Emergency Dispatcher-C | | | | | | | [...] | | care | | | Emergency Dispatcher-C | | | | | | | [...] | | care | | | Emergency Dispatcher-C | | | | | | | [...] Other chronic pain | + + | 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
--- OUTSIDE RECORDS SUMMARY | ~2019-02-17 | XMS | Encounter Summary ---
Demographics + + + | Address | [address] | | | [place] [address] | + + + | Home Phone [...] Providers + +------+ + | Care Senior Datastage Developer Name | Role | Phone | [...] | [facility] | [address] | | | | | MEDICAL CLIN[facility] [address] | [facility], [place] | | | | | [address] [place], | [address] | | | | | [place] [address] | [phone] | | | | | [phone] | | | +--------+ + + + [...] [place] | | | | | | [address] | | | | | | [phone] | | | | | | | | +--------+---------+ + + + | 02/26/ | Office | Urology | Lillie Fowler | | | 2018 | Visit | | [address] | | | | | | [address] | | | | | | [place], [place] | | | | | | [address] | | | | | | [phone] | | | | | | | | +--------+---------+ + + + | 03/16/ | Office | Neurology | Theresa, | | | 2019 | Visit | | [address] | | | | | | [address] [place], | | | | | | [place] [address] | | | | | | [phone] | | | | | | | | +--------+---------+ + + + | 04/12/ | Office | Primary Care | Massimo Ramos | | | 2019 | Visit | | MD [address] | | | | | | [place] | | | | | | [address] | | | | | | | | +--------+---------+ + + + | 10/03/ | Office | Neurology | Fabián Carias MD | | | 2019 | Visit | | [address] | | | | | | [place] | | | | | | [address] | | | | | | | [...] | | | care | | | Junior Network Administrator-C | | | | | | | [...] | | | care | | | Junior Network Administrator-C | | | | | | | [...] | | | care | | | Junior Network Administrator-C | | | | | | | [...] | | | care | | | Junior Network Administrator-C | | | | | | | [...] | | unspecified | + + | [facility] current use of opiate analgesic Encounter for long-term (current) use of | | other medications | + + documented in this encounter"
--- OUTSIDE RECORDS SUMMARY | ~2019-02-17 | XMS | Encounter Summary ---
Demographics + + + | Address | [address] | | | [place] [address] | + + + | Home Phone | | + + + | Preferred Language | Unknown | + + + | Marital Status | | + + + | Pentecostal Affiliation | 1025 | + + + | Race | Unknown | + + + | Ethnic Group | Unknown | + + + Author + + + | Author | [facility] | | | and [place] | + + + | Organization | [facility] | | [...] 2019 | | HOSPITAL [facility]UR[facility] | Rylan, [address] | | | | | CL[address] | [address] [facility], | | | | | [address] [place], | [place] [address] | | | | | [place] [address] | [phone] | | | | | [phone] | | | +--------+ + + + [...] [place] | | | | | | [address] | | | | | | [phone] | | | | | | | | +--------+---------+ + + + | 02/26/ | Office | Urology | Lillie Fowler | | | 2018 | Visit | | [address] | | | | | | [address] | | | | | | [place], [place] | | | | | | [address] | | | | | | [phone] | | | | | | | | +--------+---------+ + + + | 03/16/ | Office | Neurology | Theresa, | | | 2018 | Visit | | [address] | | | | | | [address] [place], | | | | | | [place] [address] | | | | | | [phone] | | | | | | | | +--------+---------+ + + + | 04/12/ | Office | Primary Care | Massimo Ramos | | | 2019 | Visit | | MD [address] | | | | | | [place] | | | | | | [address] | | | | | | | | +--------+---------+ + + + | 10/03/ | Office | Neurology | Fabián Carias MD | | | 2019 | Visit | | [address] | | | | | | [place] | | | | | | [address] | | | | | | | [...] | | | care | | | Cold Mill Operator-C | | | | | | [...] | | | care | | | Cold Mill Operator-C | | | | | | [...] | | | care | | | Cold Mill Operator-C | | | | | | [...] | | | care | | | Cold Mill Operator-C | | | | | | | linical | + +--------+ +---+-----+ + + + | Note: Pt will | | check CBG's daily x1 | | Pt will take Lantis as | | prescribed | + + documented as of this encounter Visit Diagnoses Not on filedocumented in this encounter"
--- OUTSIDE RECORDS SUMMARY | ~2019-02-17 | XMS | Encounter Summary ---
Demographics + + + | Address | [address] | | | [place] [address] | + + + | Home Phone [...] Team Providers + +------+ + | Care Retirement Specialist Name | Role | Phone | [...] | +--------+ + + + + | 10/07/ | Telephone | [facility] | Charline Banks, | Transitions Of Care | | 2019 | | [facility] | Case | | | | | [facility] [address] | Hat Forming 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-Clinical | | | | | [address] [facility], | | | | | | [place] [address] | | | | | | [phone] | | | +--------+ + + + [...] [place] | | | | | | [address] | | | | | | [phone] | | | | | | | | +--------+---------+ + + + | 02/26/ | Office | Urology | Lillie Fowler | | | 2018 | Visit | | [address] | | | | | | [address] | | | | | | [place], [place] | | | | | | [address] | | | | | | [phone] | | | | | | | | +--------+---------+ + + + | 03/16/ | Office | Neurology | Theresa, | | | 2018 | Visit | | [address] | | | | | | [address] [place], | | | | | | [place] [address] | | | | | | [phone] | | | | | | | | +--------+---------+ + + + | 04/12/ | Office | Primary Care | Massimo Ramos | | | 2019 | Visit | | MD [address] | | | | | | [place] | | | | | | [address] | | | | | | | | +--------+---------+ + + + | 10/03/ | Office | Neurology | Fabián Carias MD | | | 2019 | Visit | | [address] | | | | | | [place] | | | | | | [address] | | | | | | | [...] | | | care | | | Hat Forming 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-C | | | | | [...] | | | care | | | Hat Forming 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-C | | | | | [...] | | | care | | | Hat Forming 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-C | | | | | [...] | | | care | | | Hat Forming 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-C | | | | | [...]
--- OUTSIDE RECORDS SUMMARY | ~2019-02-17 | XMS | Encounter Summary ---
Demographics + + + | Address | [address] | | | [place] [address] | + + + | Home Phone [...] Team Providers + +------+ + | Care Seafood Farmer Name | Role | Phone | + [...] | | [place], [place] | [place] [address] | aspiration pneumonia | | 2019 | | [address] | [phone] | type (HCC) (Primary | | | | [phone] | | Dx); Type 2 | | | | | Amado Chapin MD | diabetes mellitus | | | | | [address] [place] | with hyperglycemia, | | | | | [place] [address] | with long-term | | | | | [phone] | current use of | | | | | | insulin (HCC); | | | | | Kasey Salinas NP | Elevated lactic acid | | | | | [address] | level; Sepsis, due | | | | | [place] [address] | to unspecified | | | | | [phone] | organism (HCC) | | | | [...] Panlobular emphysema 08/08/2017 Atherosclerosis of [place] coronary artery of [place] heart without angina pectoris 08/08 On potassium [...] Problems Diagnosis Date Noted Essential hypertension 03/07/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 Home oxygen ordered through [facility] [employer]. Recommend PCP continue to monitor this is [...] of discharge: None Disposition: Home Follow-Up Plans: [facility] [address] [facility] [id number] Horacio Silvestre DO [address] [facility] [id number] In 1 week Hospital follow up Physical [...] Procedure Component Value Units Date/Time Culture, Blood [[id number]] Collected: 10/12/18 1320 Order Status: Completed Lab Status: Final result Updated: 10/17/18 1411 Specimen: Peripheral Blood Culture No growth after 5 days incubation. Culture, Blood [[id number]] Collected: 10/12/18 1305 Order Status: Completed Lab [...] not caused by coughing Date Last Reviewed: 04/07/201619995134-[address] [place] [address], [place] [address]. All righ ts reserved. This information is not intended as a substitute for professional medical care. Always follow your healthcare professional's instructions. AttachmentsThe following attachments cannot be sent through Care Everywhere.COPD, What is ( [place])Chronic Lung Disease: Preventing Lung Infections ([place])Adult, Pneumonia ([place]) Oxygen, Using at Home ([place])Oxygen: Traveling with ([place])documented in this encounter Medications at Time of [...] of this encounter Progress Notes Scott Caballero, Veneer Marker - 10/19/2018 4:43 PM PDT PHARMACY SERVICES: [...] stomach upset -Levothyroxine: change in dose from 3d02ztf to 2.1d151hgk; may take 7k08cdg as before until new meds arrive from [...] this time. Electronically signed by: Scott Caballero, Veneer Marker 10/19/2018 16:43Electronically sig tavares by Vivek Juares, [...] signed by: Esteban Calvillo 10/18/2018 12:39 [facility] Portions of this chart may have been created with voice recognition software. Occasional wo rd or "sound-alike" substitutions may have occurred due to the inherent limitation of voice recognition software. Read the chart carefully and recognize, using context, where these sub stitutions have occurred. Esteban Mccormick MD - 10/17/2018 3:00 PM PDT MEDICAL HOSPITALIST TEAM PROGRESS NOTE Name:Geraldo Mcfadden [facility] Day # 5 Reason for admission [...] signed by: Esteban Calvillo 10/17/2018 15:00 [facility] Portions of this chart may have been created with voice recognition software. Occasional wo rd or "sound-alike" substitutions may have occurred due to the inherent limitation of voice recognition software. Read the chart carefully and recognize, using context, where these sub stitutions have occurred. asey Salinas NP - 10/16/2018 6:44 PM PDT MEDICAL HOSPITALIST TEAM PROGRESS NOTE Name:Geraldo Mcfadden [facility] Day # 4 Assessment and Plan: [...] Procedure Component Value Units Date/Time Culture, Blood [[id number]] Collected: 10/12/18 1320 Order Status: Completed Lab Status: Preliminary result Updated: 10/16/18 1411 Specimen: Peripheral Blood Culture No growth: Monitored continually by instrument for 5 days Culture, Blood [[id number]] Collected: 10/12/18 1305 Order Status: Completed Lab [...] Procedure Component Value Units Date/Time Culture, Blood [[id number]] Collected: 10/12/18 1320 Order Status: Completed Lab Status: Preliminary result Updated: 10/14/181410 Specimen: Peripheral Blood Culture No growth: Monitored continually by instrument for 5 days Culture, Blood [[id number]] Collected: 10/12/18 1305 Order Status: Completed Lab [...] Procedure Component Value Units Date/Time Culture, Blood [[id number]] Collected: 10/12/18 1320 Order Status: Completed Lab Status: Preliminary result Updated: 10/13/18 141 Specimen: Peripheral Blood Culture No growth: Monitored continually by instrument for 5 days Culture, Blood [[id number]] Collected: 10/12/18 1305 Order Status: Completed Lab [...] Procedure Component Value Units Date/Time Culture, Blood [[id number]] Collected: 10/12/18 1320 Order Status: Completed Lab Status: Preliminary result Updated: 10/13/18210 Specimen: Peripheral Blood Culture No growth: Monitored continually by instrument for 5 days Culture, Blood [[id number]] Collected: 10/12/18 1305 Order Status: Completed Lab [...] stitutions have occurred. Scott Mendes Pha rmacy Arrt Technologist - 10/13/2018 8:27 AM PDTFormatting of this [...] performed and electronically signed by Scott Caballero, Veneer Marker 10/13/2018 8:27 Associated attestation - Clarence Coulter, [...] [place] | | | | | | [address] | | | | | | [phone] | | | | | | | | +--------+---------+ + + + | 02/26/ | Office | Urology | Lillie Fowler | | | 2018 | Visit | | [address]IE [address] | | | | | | [address] | | | | | | [place] | | | | | | [address] | | | | | | [phone] | | | | | | | | +--------+---------+ + + + | 03/16/ | Office | Neurology | Theresa, | | | 2018 | Visit | | SHONDA M[address]ney [address] | | | | | [address] [place], | | | | | | [place] [address] | | | | | | [phone] | | | | | | | | +--------+---------+ + + + | 04/12/ | Office | Primary Care | Massmio Ramos | | | 2019 | Visit | | MD Fer [address] | | | | | | [address] [place] | | | | | | [address] | | | | | | | | +--------+---------+ + + + | 10/03/ | Office | Neurology | Fabián Carias MD | | | 2020 | Visit | | [address] | | | | | | [place] | | | | | | [address] | | | | | | | [...] | | | care | | | P 3 Armament/Ordnance Ima Technician-C | | | | | | [...] | | | care | | | P 3 Armament/Ordnance Ima Technician-C | | | | | | [...] | | | care | | | P 3 Armament/Ordnance Ima Technician-C | | | | | | [...] | | | care | | | P 3 Armament/Ordnance Ima Technician-C | | | | | | [...] + + | [place] [facility] | [address] | [place] [address] | [phone] | | H[facility]PITAL [facility] | | | [...] + + | [place] [facility] | [address] | [place] [address] | [phone] | | HOSPITAL [facility] | | | [...] + + | [place] [facility] | [address] | [place] [address] | [phone] | | HOSPITAL [facility] | | | [...] + + | [place] [facility] | [address] | [place] [address] | [phone] | | HOSPITAL LAB[facility]ORY | | | [...] + + | [place] [facility] | [address] | [place] [address] | [phone] | | H[facility]PITAL [facility] | | | [...] + + | [place] [facility] | [address] | [place] [address] | [phone] | | HOSPITAL LAB[facility]ORY | | | [...] + + | [place] [facility] | [address] | [place] [address] | [phone] | | HOSPITAL [facility] | | | [...] + + | [place] | [address] | [place] [address] | [phone] | | HOSPITAL [facility] | | | [...] + + | [place] [facility] | [address] | [place] [address] | [phone] | | H[facility]PITAL [facility] | | | [...] + + | [place] [facility] | [address] | [place] [address] | [phone] | | HOSPITAL [facility] | | | [...] + + | [place] [facility] | [address] | [place] [address] | [phone] | | HOSPITAL LAB[facility]ORY | | | [...] + + | [place] [facility] | [address] | [place] [address] | [phone] | | HOSPITAL LAB[facility] | | | [...] + + | [place] [facility] | [address] | [place] [address] | [phone] | | HOSPITAL [facility] | | | [...] + + | [place] [facility] | [address] | [place] [address] | [phone] | | HOSPITAL LAB[facility] | | | [...] + + | [place] [facility] | [address] | [place] [address] | [phone] | | HOSPITAL [facility] | | | [...] + + | [place] [facility] | [address] | [place] [address] | [phone] | | HOSPITAL [facility] | | | [...] + + | [place] [facility] | [address] | [place] [address] | [phone] | | HOSPITAL [facility] | | | [...] + + | [place] [facility] | [address] | [place] [address] | [phone] | | HOSPITAL [facility] | | | [...] + + | [place] [facility] | [address] | [place] [address] | [phone] | | HOSPITAL [facility] | | | [...] + + | [place] [facility] | [address] | [place] [address] | [phone] | | H[facility]PITAL [facility] | | | [...] + + | [place] [facility] | [address] | [place] [address] | [phone] | | H[facility]ITAL [facility] | | | [...] + + | [place] [facility] | [address] | [place] [address] | [phone] | | H[facility]ITAL [facility] | | | [...] + + | [place] [facility] | [address] | [place] [address] | [phone] | | H[facility]ITAL [facility] | | | [...] + + | [place] [facility] | [address] | [place] [address] | [phone] | | [facility]ITAL [facility] | | | [...] + + | [place] [facility] | [address] | [place] [address] | [phone] | | H[facility]ITAL [facility] | | | [...] + + | [place] [facility] | [address] | [place] [address] | [phone] | | [facility]ITAL [facility] | | | [...] + + | [place] [facility] | [address] | [place] [address] | [phone] | | H[facility]ITAL [facility] | | | [...] + + | [place] [facility] | [address] | [place] [address] | [phone] | | [facility] | | | [...] | mL/min/1.73m2 | [facility] | | | [facility] | | [facility] | | | [...] + + | [place] [facility] | [address] | [place] [address] | [phone] | | [facility]ITAL [facility] | | | [...] + + | [place] [facility] | [address] | [place] [address] | [phone] | | [facility]ITAL [facility] | | | [...] + + | [place] [facility] | [address] | [place] [address] | [phone] | | [facility]ITAL [facility] | | | [...] + + | [facility] | [address] | [place] [address] | [phone] | | [facility]ITAL [facility] | | | [...] + + | [facility] | [address] | [place] [address] | [phone] | | [facility]ITAL [facility] | | | [...] + + | [place] | [address] | [place] [address] | [phone] | | H[facility]ITAL [facility] | | | [...] + + | [place] | [address] | [place] [address] | [phone] | | [facility]ITAL [facility] | | | [...] + + | [place] [facility] | [address] | [place] [address] | [phone] | | [facility]ITAL [facility] | | | [...] + + | [place] [facility] | [address] | [place] [address] | [phone] | | [facility] | | | [...] | mL/min/1.73m2 | [facility] | | [facility] | | | [...] + + | [place] [facility] | [address] | [place] [address] | [phone] | | [facility] | | | [...] + + | [place] | [address] | [place] [address] | [phone] | | [facility] | | | [...] + + | [facility] | [address] | [place] [address] | [phone] | | [facility]ITAL [facility] | | | [...] + + | [place] | [address] | [place] [address] | [phone] | | [facility]ITAL [facility] | | | [...] + + | [place] | [address] | [place] [address] | [phone] | | [facility] | | | [...] + + | [facility] | [address] | [place] [address] | [phone] | | [facility]ITAL [facility] | | | [...] + + | [facility] | [address] | [place] [address] | [phone] | | [facility]ITAL [facility] | | | [...] + + | [facility] | [address] | [place] [address] | [phone] | | [facility] | | | [...] + + | [facility] | [address] | [place] [address] | [phone] | | [facility] | | | [...] + + | [place] | [address] | [place] [address] | [phone] | | [facility] | | | [...] + + | [facility] | [address] | [place] [address] | [phone] | | [facility] | | | [...] + + | [facility] | [address] | [place] [address] | [phone] | | HOSPITAL LAB[facility] | | | | + + + + + Basic Metabolic Panel (10/13/2018 5:20 AM PDT) + +---------+ + + + | Component | Value | Ref Range | Performed | Pathologist | | | | | At | Signature | + +---------+ + + + | Na | 140 | 132 - 143 | [place] | | | | | mmol/L | [...] | mL/min/1.73m2 | [facility] | [facility] | [facility] | | [facility] | | | [...] + + | [place] [facility] | [address] | [place] [address] | [phone] | | [facility] | | | [...] + + | [facility] | [address] | [place] [address] | [phone] | | [facility]ITAL [facility] | | | [...] + + | [place] | [address] | [place] [address] | [phone] | | [facility]ITAL [facility] | | | [...] + + | [place] | [address] | [place] [address] | [phone] | | [facility] | | | [...] - 1.030 | [place] | | | [place] | | | [facility] | | | [...] + + | [facility] | [address] | [place] [address] | [phone] | | [facility] | | | [...] msQT Interval: 372 msQTC Interval: 437 msP [place]: | TRACEMASTER | | 15 degQRS [place]: -25 degT Wave [place]: 17 degP-R Interval: 184 msec- | | [...] + + | [facility] | [address] | [place] [address] | [phone] | | [facility] | | | [...] + + | [facility] | [address] | [place] [address] | [phone] | | [facility] | | | [...] + + | [facility] | [address] | [place] [address] | [phone] | | [facility]ITAL [facility] | | | [...] + + | [facility] | [address] | [place] [address] | [phone] | | [facility]ITAL [facility] | | | [...] | cutoff point for the diagnosis of [place] is 0.8 ng/mL for the Troponin I | | | method. | | + + + + + + + + | Performing | Address | City/State/Zipcode | Phone Number | | Organization | | | | + + + + + | [facility] | [address] | [place] [address] | [phone] | | [facility] | | | [...] | mL/min/1.73m2 | [facility] | | | [facility] | RATE,ESTIMATED | | [facility] | | | | mL/min/1.66b4Syka than | | LABORATORY | | | [...] + + | [facility] | [address] | [place] [address] | [phone] | | [facility]ITAL [facility] | | | [...] + + | [place] [facility] | [address] | [place] [address] | [phone] | | [facility] | | | [...] + + | [facility] | [address] | [place] [address] | [phone] | | HOSPITAL [facility] | | | [...] | | | | | Minutes, ONCE, [facility] 10/13/18 at | | | | | [...] | | | | | Minutes, ONCE, [facility] 10/14/18 at | | | | [...] | | | | | Minutes, ONCE, [facility] 10/15/18 at | | | | | [...] | | | | | | | 4258-4143 Use NIGHT DOSE for | | | | | | | doses scheduled: HS, 3AM, | | | | | | | Nighttime 6245-2028 If the BG is | | | [...] PDT | | | | | ONCE, [facility] 10/13/18 at 1345, For 1 | | [...]
--- OUTSIDE RECORDS SUMMARY | ~2019-02-17 | XMS | Encounter Summary ---
Demographics + + + | Address | [address] | | | [place] [address] | + + + | Home Phone [...] Providers + +------+ + | Care Manager Cosmetic Name | Role | Phone | + [...] Description | +--------+--------+ + + + | 04/11/ | Refill | [place] | Horacio Silvestre, | Medication Refill | | 2017 | | [facility] | DO [address] [place] | | | | | [facility] [address] | [facility], [place] | | | | | [address] [place], | [address] | | | | | [place] [address] | [phone] | | | | | [phone] | | | +--------+--------+ + + + [...] [place] | | | | | | [address] | | | | | | [phone] | | | | | | | | +--------+---------+ + + + | 02/26/ | Office | Urology | Malcolm Lillie | | | 2018 | Visit | | [address]IE [address] | | | | | | [address] | | | | | | [place], [place] | | | | | | [address] | | | | | | [phone] | | | | | | | | +--------+---------+ + + + | 03/16/ | Office | Neurology | Theresa, | | | 2018 | Visit | | [address] | | | [address] [place], | | | | | | [place] [address] | | | | | | [phone] | | | | | | | | +--------+---------+ + + + | 04/12/ | Office | Primary Care | Massimo Ramos | | | 2019 | Visit | | MD Fer [address] | | | | | | [address] [place] | | | | | | [address] | | | | | | | | +--------+---------+ + + + | 10/03/ | Office | Neurology | Fabián Carias MD | | | 2019 | Visit | | [address] | | | | | | [place] | | | | | | [address] | | | | | | | [...] | | | care | | | Regional Geodetic Advisor-C | | | | | | [...] | | | care | | | Regional Geodetic Advisor-C | | | | | | [...] | | | care | | | Regional Geodetic Advisor-C | | | | | | [...] | | | care | | | Regional Geodetic Advisor-C | | | | | | | linical | + +--------+ +---+-----+ + + + | Note: Pt will | | check CBG's daily x1 | | Pt will take Lantis as | | prescribed | + + documented as of this encounter Visit Diagnoses Not on filedocumented in this encounter"
--- OUTSIDE RECORDS SUMMARY | ~2019-02-17 | XMS | Encounter Summary ---
Demographics + + + | Address | [address] | | | [place] [address] | + + + | Home Phone [...] Providers + +------+ + | Care Tire Mold Engraver Name | Role | Phone | + [...] PCP) | | 2018 | | [facility] | DO [address] [place] | | | | | [facility]ICAL [facility] [address] | [facility], [place] | | | | | [address] [place], | [address] | | | | | [place] [address] | [phone] | | | | | [phone] | | | +--------+ + + + [...] [place] | | | | | | [address] | | | | | | [phone] | | | | | | | | +--------+---------+ + + + | 02/26/ | Office | Urology | Lillie Fowler | | | 2018 | Visit | | LILLIE Lopez [address] | | | | | | [address] | | | | | | [place], [place] | | | | | | [address] | | | | | | [phone] | | | | | | | | +--------+---------+ + + + | 03/16/ | Office | Neurology | Theresa, | | | 2018 | Visit | | [address] | | | | | [address] [place], | | | | | | [place] [address] | | | | | | [phone] | | | | | | | | +--------+---------+ + + + | 04/12/ | Office | Primary Care | Massimo Ramos | | | 2019 | Visit | | MD Fer [address] | | | | | | [place] | | | | | | [address] | | | | | | | | +--------+---------+ + + + | 10/03/ | Office | Neurology | Fabián Carias MD | | | 2019 | Visit | | [address] | | | | | | [place] | | | | | | [address] | | | | | | | [...] | | care | | | Machine Finisher-C | | | | | | | [...] | | care | | | Machine Finisher-C | | | | | | | [...] | | care | | | Machine Finisher-C | | | | | | | [...] | | care | | | Machine Finisher-C | | | | | | | linical | + +--------+ +---+-----+ + + + | Note: Pt will | | check CBG's daily x1 | | Pt will take Lantis as | | prescribed | + + documented as of this encounter Visit Diagnoses Not on filedocumented in this encounter"
--- OUTSIDE RECORDS SUMMARY | ~2019-02-17 | XMS | Encounter Summary ---
Demographics + + + | Address | [address] | | | [place] [address] | + + + | Home Phone [...] | + + +---------+ + | Juan Mcfdaden | ECON | Unknown | | + + +---------+ + Care Team Providers + +------+ + | Care Natural History Collections Curator Name | Role | Phone | + [...] | | | [facility] [address] | Seo Specialist-Clinical | | | | | [address] [facility] [place], | | | | | | [place] [address] | | | | | | [phone] | | | +--------+ + + + [...] [place] | | | | | | [address] | | | | | | [phone] | | | | | | | | +--------+---------+ + + + | 02/26/ | Office | Urology | Lillie Fowler | | | 2018 | Visit | | [address]IE Lopez [address] | | | | | | [address] [place] | | | | | | [place], [place] | | | | | | [address] | | | | | | [phone] | | | | | | | | +--------+---------+ + + + | 03/16/ | Office | Neurology | Theresa, | | | 2018 | Visit | | [address] | | | | | [address] [place], | | | | | | [place] [address] | | | | | | [phone] | | | | | | | | +--------+---------+ + + + | 04/12/ | Office | Primary Care | Richard Massimo Pedro Luis | | | 2019 | Visit | | MD Fer [address] | | | | | | [place] | | | | | | [address] | | | | | | | | +--------+---------+ + + + | 10/03/ | Office | Neurology | Fabián Carias MD | | | 2019 | Visit | | [address] | | | | | | [place] | | | | | | [address] | | | | | | | [...] | | | care | | | Seo Specialist-C | | | | | | [...] | | | care | | | Seo Specialist-C | | | | | | [...] | | | care | | | Seo Specialist-C | | | | | | [...] | | | care | | | Seo Specialist-C | | | | | | [...]
--- OUTSIDE RECORDS SUMMARY | ~2019-02-17 | XMS | Encounter Summary ---
Demographics + + + | Address | [address] | | | [place] [address] | + + + | Home Phone [...] Team Providers + +------+ + | Care Owner Manager Name | Role | Phone | [...] Medication Refill | | 2017 | | [facility] | [address] [place] | | | | | MEDICAL CLINIC [address] | [facility], [place] | | | | | [address] [place], | [address] | | | | | [place] [address] | [phone] | | | | | [phone] | | | +--------+--------+ + + + [...] [place] | | | | | | [place], [place] | | | | | | [address] | | | | | | [phone] | | | | | | | | +--------+---------+ + + + | 02/26/ | Office | Urology | Lillie Fowler | | | 2018 | Visit | | [address]IE [address] | | | | | | [address] | | | | | | [place], [place] | | | | | | [address] | | | | | | [phone] | | | | | | | | +--------+---------+ + + + | 03/16/ | Office | Neurology | Theresa, | | | 2018 | Visit | | [address] | | | | | [address] [place], | | | | | | [place] [address] | | | | | | [phone] | | | | | | | | +--------+---------+ + + + | 04/12/ | Office | Primary Care | Massimo Ramos | | | 2019 | Visit | | MD Fer [address] | | | | | | [place] | | | | | | [address] | | | | | | | | +--------+---------+ + + + | 10/03/ | Office | Neurology | Fabián Carias MD | | | 2019 | Visit | | [address] | | | | | | [place] | | | | | | [address] | | | | | | | [...] | | | care | | | Door Fitter-C | | | | | | | [...] | | | care | | | Door Fitter-C | | | | | | | [...] | | | care | | | Door Fitter-C | | | | | | | [...] | | | care | | | Door Fitter-C | | | | | | | [...] | | unspecified | + + | 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
--- OUTSIDE RECORDS SUMMARY | ~2019-02-17 | XMS | Encounter Summary ---
Demographics + + + | Address | [address] | | | [place] [address] | + + + | Home Phone [...] Team Providers + +------+ + | Care Hockey Player Name | Role | Phone | + [...] + + | 09/21/ | Refill | [facility] | Horacio Silvestre, | Medication Refill | | 2019 | | [facility] | [address] [place] | | | | | MEDICAL CL[facility] | [facility], [place] | | | | | [address] [place], | [address] | | | | | [place] [address] | [phone] | | | | | [phone] | | | +--------+--------+ + + + [...] [place] | | | | | | [address] | | | | | | [phone] | | | | | | | | +--------+---------+ + + + | 02/26/ | Office | Urology | Lillie Fowler | | | 2018 | Visit | | LILLIE Lopez [address] | | | | | | [address] | | | | | | [place], [place] | | | | | | [address] | | | | | | [phone] | | | | | | | | +--------+---------+ + + + | 03/16/ | Office | Neurology | Theresa, | | | 2018 | Visit | | [address] | | | | | | [address] [place], | | | | | | [place] [address] | | | | | | [phone] | | | | | | | | +--------+---------+ + + + | 04/12/ | Office | Primary Care | Massimo Ramos | | | 2019 | Visit | | MD Fer [address] | | | | | | [address] [place] | | | | | | [address] | | | | | | | | +--------+---------+ + + + | 10/03/ | Office | Neurology | Fabián Carias MD | | | 2019 | Visit | | [address] | | | | | | [place] | | | | | | [address] | | | | | | | [...] | | | care | | | Formal Wear Rental Clerk-C | | | | | [...] | | | care | | | Formal Wear Rental Clerk-C | | | | | [...] | | | care | | | Formal Wear Rental Clerk-C | | | | | [...] | | | care | | | Formal Wear Rental Clerk-C | | | | | [...]
--- OUTSIDE RECORDS SUMMARY | ~2019-02-17 | XMS | Encounter Summary ---
Demographics + + + | Address | [address] | | | [place] [address] | + + + | Home Phone [...] Team Providers + +------+ + | Care Event Security Officer Name | Role | Phone | + +------+ + PCP | Unavailable | + +------+ + Encounter Details +--------+ + + + + | Date | Type | Department | Care Team | Description | +--------+ + + + + | 01/17/ | Hospital | [facility] | [facility] | | | 2009 | Encounter | [facility] | MD Artie Downs | | | | | CENTER [address] | [place], | | | | | [address] [place], [place] | [place] [address] | | | | | [address] | [phone] | | | | | [phone] | | | +--------+ + + + [...] [place] | | | | | | [address] | | | | | | [phone] | | | | | | | | +--------+---------+ + + + | 02/26/ | Office | Urology | Lillie Fowler | | | 2018 | Visit | | [address]IE [address] | | | | | | [address] | | | | | | [place], [place] | | | | | | [address] | | | | | | [phone] | | | | | | | | +--------+---------+ + + + | 03/16/ | Office | Neurology | Theresa, | | | 2018 | Visit | | [address] | | | | | | [address] [place], | | | | | | [place] [address] | | | | | | [phone] | | | | | | | | +--------+---------+ + + + | 04/12/ | Office | Primary Care | Massimo Ramos | | | 2019 | Visit | | MD Fer [address] | | | | | | [place] | | | | | | [address] | | | | | | | | +--------+---------+ + + + | 10/03/ | Office | Neurology | Fabián Carias MD | | | 2019 | Visit | | [address] | | | | | | [place] | | | | | | [address] | | | | | | | [...] | | | care | | | Perpetual Inventory Clerk-C | | | | | | [...] | | | care | | | Perpetual Inventory Clerk-C | | | | | | [...] | | | care | | | Perpetual Inventory Clerk-C | | | | | | [...] | | | care | | | Perpetual Inventory Clerk-C | | | | | | | linical | + +--------+ +---+-----+ + + + | Note: Pt will | | check CBG's daily x1 | | Pt will take Lantis as | | prescribed | + + documented as of this encounter Visit Diagnoses Not on filedocumented in this encounter"
--- OUTSIDE RECORDS SUMMARY | ~2019-02-17 | XMS | Encounter Summary ---
Demographics + + + | Address | [address] | | | [place] [address] | + + + | Home Phone [...] Providers + +------+ + | Care Security System Administrator Name | Role | Phone | + [...] | | [place], [place] | [place] [address] | Hypothyroidism, | | 2018 | | [address] | [phone] | unspecified type; | | | | [phone] | | Hypotension, | | | | | Dougherty, Kasey L, POKER MANAGER | unspecified | | | | | [address] | hypotension type; | | | | | [place] [address] | Acute respiratory | | | | | [phone] | failure with hypoxia | | | | | | (HCC); Generalized | | | | | Faizan Wesley, | weakness | | | | | MD [address] | | | | | | [place] [address] | | | | | | [phone] | | | | | | | [...] MEDICAL HOSPITALIST DISCHARGE SUMMARY Pt. Name/Age/: Geraldo Mcafdden 77 y.o. 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 His levothyroxine was increased from 175 g daily to 200 g daily. A prescriptio n for 5 days [facility] to [facility] Pending inpatient studies at time of discharge: None Disposition: Home Follow-Up Plans: Horacio Silvestre DO [address] [place] [address] [place] [address] In 2 weeks Hospital follow up Physical [...] Procedure Component Value Units Date/Time Culture, Blood [[id number]] Order Status: Canceled Lab Status: No result Specimen: Blood from Peripheral Blood Culture, Blood [[id number]] Order Status: Canceled Lab Status: No result Specimen: Blood from Peripheral Blood Time spent discharging this patient: 30 min CHANTEL Hillman 03/17/2018Electronically signed by Rupinder Padgett MD at 8 7:55 AM PSTdocumented in this encounter Discharge Instructions AttachmentsThe following attachments cannot be sent through Care Everywhere.Adult, Pneumoni a (Citizen [place])Hypothyroidism (Citizen [place])documented in this encounter Medications at Time of [...] | | | | | | disease, 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 Insulin aspart (Novalog) is dosed per modified sliding scale Please see INDUSTRIAL MAINTENANCE MECHANIC med list for updated medication list. Electronically [...] [place] | | | | | | [address] | | | | | | [phone] | | | | | | | | +--------+---------+ + + + | 02/26/ | Office | Urology | Lillie Fowler | | | 2018 | Visit | | [address] | | | | | | [address] | | | | | | [place], [place] | | | | | | [address] | | | | | | [phone] | | | | | | | | +--------+---------+ + + + | 03/16/ | Office | Neurology | Theresa, | | | 2018 | Visit | | [address] | | | | | | [address] [place], | | | | | | [place] [address] | | | | | | [phone] | | | | | | | | +--------+---------+ + + + | 04/12/ | Office | Primary Care | Massimo Ramos | | | 2019 | Visit | | MD Fer [address] | | | | | | [place] | | | | | | [address] | | | | | | | | +--------+---------+ + + + | 10/03/ | Office | Neurology | Fabián Carias MD | | | 2019 | Visit | | [address] | | | | | | [place] | | | | | | [address] | | | | | | | [...] | | | care | | | Screw Down-C | | | | | | | [...] | | | care | | | Screw Down-C | | | | | | | [...] | | | care | | | Screw Down-C | | | | | | | [...] | | | care | | | Screw Down-C | | | | | | | [...] J?MRN: | | | | | | [id number] | | | [id number] | | | ecurit | | | [...] | | | [place] | | | Human Resource Internship | | | al | | | [...] + | [facility] | [address] | [place] [address] | [phone] | | [facility]ITAL [facility] | | | [...] + | [facility] | [address] | [place] [address] | [phone] | | H[facility]PITAL [facility] | | | [...] + | [facility] | [address] | [place] [address] | [phone] | | HOSPITAL [facility] | | | [...] + | [facility] | [address] | [place] [address] | [phone] | | [facility] | | | [...] | mL/min/1.73m2 | [facility] | | | [facility] | | | [facility] | | | [...] + | [facility] | [address] | [place] [address] | [phone] | | HOSPITAL [facility] | | | [...] + + | [facility] | [address] | [place] [address] | [phone] | | HOSPITAL [facility] | | | [...] + | [facility] | [address] | [place] [address] | [phone] | | H[facility]ITAL [facility] | | | [...] - 1.030 | [place] | | | [place] | | | [facility] | | | [...] Few (A) | None seen /LPF | [facility] | | | | | [...] + | [facility] | [address] | [place] [address] | [phone] | | H[facility]PITAL [facility] | | | [...] + | [facility] | [address] | [place] [address] | [phone] | | H[facility]ITAL [facility] | | | [...] + | [facility] [facility] | [address] | [place] [address] | [phone] | | H[facility]ITAL [facility] | | | [...] + | [facility] [facility] | [address] | [place] [address] | [phone] | | [facility]ITAL [facility] | | | [...] + | [facility] | [address] | [place] [address] | [phone] | | [facility]ITAL [facility] | | | [...] + | [facility] | [address] | [place] [address] | [phone] | | [facility]ITAL [facility] | | | [...] | cutoff point for the diagnosis of [place] is 0.8 ng/mL for the Troponin I | | | method. | | + + + + + + + + | Performing | Address | City/State/Zipcode | Phone Number | | Organization | | | | + + + + + | [facility] | [address] | [place] [address] | [phone] | | [facility]ITAL [facility] | | | [...] + | [facility] | [address] | [place] [address] | [phone] | | [facility] | | | [...] | mL/min/1.73m2 | [facility] | | | [facility] | RATE,ESTIMATED | | HOSPITAL | | | | mL/min/1.89j3Imsk than | | LABORATORY | | | [...] + + + + + + | Albumin/Libzeth | 1.0 | 0.8 - 2.0 | [...] + | [facility] | [address] | [place] [address] | [phone] | | HOSPITAL [facility] | | | [...] + | [facility] | [address] | [place] [address] | [phone] | | [facility]OS[facility]ITAL [facility] | | | | + + + + + ECG 12 lead (03/16/2018 8:50 AM PST) + + | Specimen | + + | | + + + + + | Narrative | Performed At | + + + | Heart Rate: 73 | [facility] | | bpmQRS Interval: 84 msQT Interval: 400 msQTC Interval: 441 msP [place]: | TRACEMASTER | | -6 degQRS [place]: -22 degT Wave [place]: 8 degP-R Interval: 168 msec- | | | OTHERWISE NORMAL ECG -SINUS RHYTHM [Remains]SIGNIFICANT ECG CONTOUR | | | CHANGES | | |QRS [place]: -22 deg | | |T Wave [place]: 8 deg | | |P-R Interval: 168 [...] | | | | AC, NPO, Daytime 5947-7679 Use | | | | | | | NIGHT DOSE for doses scheduled: | | | | | | | HS, 3AM, Nighttime 2866-3486 | | | | | | | [...]
--- OUTSIDE RECORDS SUMMARY | ~2019-02-17 | XMS | Encounter Summary ---
Demographics + + + | Address | [address] | | | [place] [address] | + + + | Home Phone [...] Team Providers + +------+ + | Care Prefabricator Name | Role | Phone | + [...] Medication Refill | | 2016 | | [facility] | DO [address] | | | | | MEDICAL CLINIC [address] | [facility], [place] | | | | | [address] [place], | [address] | | | | | [place] [address] | [phone] | | | | | [phone] | | | +--------+ + + + [...] [place] | | | | | | [address] | | | | | | [phone] | | | | | | | | +--------+---------+ + + + | 02/26/ | Office | Urology | Lillie Fowler | | | 2018 | Visit | | [address] | | | | | | [address] | | | | | | [place] | | | | | | [address] | | | | | | [phone] | | | | | | | | +--------+---------+ + + + | 03/16/ | Office | Neurology | Theresa, | | | 2018 | Visit | | [address] | | | | | | [address] [place], | | | | | | [place] [address] | | | | | | [phone] | | | | | | | | +--------+---------+ + + + | 04/12/ | Office | Primary Care | Massimo Ramos | | | 2019 | Visit | | MD Fer [address] | | | | | | [address] [place], [place] | | | | | | [address] | | | | | | | | +--------+---------+ + + + | 10/03/ | Office | Neurology | Fabián Carias MD | | | 2019 | Visit | | [address] | | | | | | [place] | | | | | | [address] | | | | | | | [...]
--- OUTSIDE RECORDS SUMMARY | ~2019-02-17 | XMS | Encounter Summary ---
Demographics + + + | Address | [address] | | | [place] [address] | + + + | Home Phone [...] Team Providers + +------+ + | Care Bindery Production Manager Name | Role | Phone | [...] + | 07/02/ | Telephone | [facility] | Charline Banks, | Care Coordination | | 2018 | | HOSPITAL OP CASE | Case | | | | | MANAGEMENT [address] | Supervisor Sheet Manufacturing-Clinical | | | | | [address] | | | | | | [place] | | | | | | [address] | | | | | | [phone] | | | +--------+ + + + [...] [place] | | | | | | [address] | | | | | | [phone] | | | | | | | | +--------+---------+ + + + | 02/26/ | Office | Urology | Lillie Fowler | | | 2018 | Visit | | [address] | | | | | | [address] | | | | | | [place], [place] | | | | | | [address] | | | | | | [phone] | | | | | | | | +--------+---------+ + + + | 03/16/ | Office | Neurology | Theresa, | | | 2018 | Visit | | [address] | | | | | | [address] [place], | | | | | | [place] [address] | | | | | | [phone] | | | | | | | | +--------+---------+ + + + | 04/12/ | Office | Primary Care | Massimo Ramos | | | 2019 | Visit | | MD Fer [address] | | | | | | [place] | | | | | | [address] | | | | | | | | +--------+---------+ + + + | 10/03/ | Office | Neurology | Fabián Carias MD | | | 2019 | Visit | | [address] | | | | | | [place] | | | | | | [address] | | | | | | | [...] | | care | | | Supervisor Sheet Manufacturing-C | | | | | | | [...] | | care | | | Supervisor Sheet Manufacturing-C | | | | | | | [...] | | care | | | Supervisor Sheet Manufacturing-C | | | | | | | [...] | | care | | | Supervisor Sheet Manufacturing-C | | | | | | | linical | + +--------+ +---+-----+ + + + | Note: Pt will | | check CBG's daily x1 | | Pt will take Lantis as | | prescribed | + + documented as of this encounter Visit Diagnoses Not on filedocumented in this encounter"
--- OUTSIDE RECORDS SUMMARY | ~2019-02-17 | XMS | Encounter Summary ---
Demographics + + + | Address | [address] | | | [place] [address] | + + + | Home Phone [...] Providers + +------+ + | Care Railroad Supervisor Of Engines Name | Role | Phone | + [...] + | 03/03/ | Refill | [facility] | Horacio Silvestre, | Medication Refill | | 2016 | | [facility] | DO [address] | | | | | MEDICAL CLINIC [address] | [facility], [place] | | | | | [address] [place], | [address] | | | | | [place] [address] | [phone] | | | | | [phone] | | | +--------+--------+ + + + [...] Rao | | | | | | [address] | | | | | | [place] | | | | | | [address] | | | | | | [phone] | | | | | | | | +--------+---------+ + + + | 02/26/ | Office | Urology | Lillie Fowler | | | 2018 | Visit | | [address] | | | | | | [address] | | | | | | [place] | | | | | | [address] | | | | | | [phone] | | | | | | | | +--------+---------+ + + + | 03/16/ | Office | Neurology | Theresa, | | | 2018 | Visit | | [address] | | | | | | [address] [place], | | | | | | [place] [address] | | | | | | [phone] | | | | | | | | +--------+---------+ + + + | 04/12/ | Office | Primary Care | Massimo Ramos | | | 2019 | Visit | | MD Fer [address] | | | | | | [place] | | | | | | [address] | | | | | | | | +--------+---------+ + + + | 10/03/ | Office | Neurology | Fabián Carias MD | | | 2019 | Visit | | [address] | | | | | | [place] | | | | | | [address] | | | | | | | [...] | | care | | | Video System Repairer-C | | | | | | [...] | | care | | | Video System Repairer-C | | | | | | [...] | | care | | | Video System Repairer-C | | | | | | [...] | | care | | | Video System Repairer-C | | | | | | | linical | + +--------+ +---+-----+ + + + | Note: Pt will | | check CBG's daily x1 | | Pt will take Lantis as | | prescribed | + + documented as of this encounter Visit Diagnoses Not on filedocumented in this encounter"
--- OUTSIDE RECORDS SUMMARY | ~2019-02-17 | XMS | Encounter Summary ---
Demographics + + + | Address | [address] | | | [place] [address] | + + + | Home Phone [...] Team Providers + +------+ + | Care Global Regulatory Lead Name | Role | Phone | [...] | | [address] [place], | [address] | | | | | [place] [address] | [phone] | | | | | [phone] | | | +--------+ + + + [...] [place] | | | | | | [address] | | | | | | [phone] | | | | | | | | +--------+---------+ + + + | 02/26/ | Office | Urology | Lillie Fowler | | | 2018 | Visit | | [address] | | | | | | [address] | | | | | | [place], [place] | | | | | | [address] | | | | | | [phone] | | | | | | | | +--------+---------+ + + + | 03/16/ | Office | Neurology | Theresa, | | | 2018 | Visit | | [address] | | | | | | [address] [place], | | | | | | [place] [address] | | | | | | [phone] | | | | | | | | +--------+---------+ + + + | 04/12/ | Office | Primary Care | Massimo Ramos | | | 2019 | Visit | | MD Fer [address] | | | | | | [address] [place], [place] | | | | | | [address] | | | | | | | | +--------+---------+ + + + | 10/03/ | Office | Neurology | Fabián Carias MD | | | 2019 | Visit | | [address] | | | | | | [place] | | | | | | [address] | | | | | | | [...] | | | care | | | Enrollment Management Manager-C | | | | | | [...] | | | care | | | Enrollment Management Manager-C | | | | | | [...] | | | care | | | Enrollment Management Manager-C | | | | | | [...] | | | care | | | Enrollment Management Manager-C | | | | | | | linical | + +--------+ +---+-----+ + + + | Note: Pt will | | check CBG's daily x1 | | Pt will take Lantis as | | prescribed | + + documented as of this encounter Visit Diagnoses Not on filedocumented in this encounter"
--- OUTSIDE RECORDS SUMMARY | ~2019-02-17 | XMS | Encounter Summary ---
Demographics + + + | Address | [address] | | | [place] [address] | + + + | Home Phone [...] [facility] | | | and [place] | + [...] Team Providers + +------+ + | Care Pc Tech Name | Role | Phone | [...] | | | | Mediastinal | Horacio Tim DO | [address] | | | | | | [address] | [address] [place] | | | | | lymphadenopa | [place], | [place], [place] | | | | | thy | [place] | [address] | | | | | Procedures | [address] | Phone: | | | | | PET CT Skull | Phone: | [phone] | | | | | Base To Mid | [phone] | Fax: | | | | | Thigh PET | Fax: | [phone] | | | | | CT Limited | [phone] | | +--------+--------+ + + + + Encounter Details +--------+ + + + + | Date | Type | Department | Care Team | Description | +--------+ + + + + | 10/01/ | Orders Only | [facility] | Horacio Silvestre, | Mediastinal | | 2019 | | [facility] | DO [address] [place] | lymphadenopathy | | | | MEDICAL CLINIC [address] | [place], [place] | (Primary Dx) | | | | [address] [facility] [place], | [address] | | | | | [place] [address] | [phone] | | | | | [phone] | | | +--------+ + + + [...] [place] | | | | | | [address] | | | | | | [phone] | | | | | | | | +--------+---------+ + + + | 02/26/ | Office | Urology | Lillie Fowler | | | 2018 | Visit | | [address] | | | | | | [address] | | | | | | [place], [place] | | | | | | [address] | | | | | | [phone] | | | | | | | | +--------+---------+ + + + | 03/16/ | Office | Neurology | Theresa, | | | 2018 | Visit | | [address] | | | | | | [address] [place], | | | | | | [place] [address] | | | | | | [phone] | | | | | | | [...] [place] | | | | | | [address] | | | | | | | [...] | | | care | | | Traveling Phlebotomist-C | | | | | | | [...] | | | care | | | Traveling Phlebotomist-C | | | | | | | [...] | | | care | | | Traveling Phlebotomist-C | | | | | | | [...] | | | care | | | Traveling Phlebotomist-C | | | | | | | linical | + +--------+ +---+-----+ + + + | Note: Pt will | | check CBG's daily x1 | | Pt will take Lantis as | | prescribed | + + documented as of this encounter Results PET CT Skull Base [...]
--- OUTSIDE RECORDS SUMMARY | ~2019-02-17 | XMS | Encounter Summary ---
Demographics + + + | Address | [address] | | | [place] [address] | + + + | Home Phone [...] Team Providers + +------+ + | Care Gunsmith Apprentice Name | Role | Phone | [...] + + + + | 10/13/ | Telephone | [facility] | Horacio Silvestre, | Medication Refill | | 2018 | | [facility] | DO [address] | | | | | MEDICAL CLINIC [address] | [facility], [place] | | | | | [address] [place], | [address] | | | | | [place] [address] | [phone] | | | | | [phone] | | | +--------+ + + + [...] [place] | | | | | | [address] | | | | | | [phone] | | | | | | | | +--------+---------+ + + + | 02/26/ | Office | Urology | Lillie Fowler | | | 2018 | Visit | | [address] | | | | | | [address] | | | | | | [place], [place] | | | | | | [address] | | | | | | [phone] | | | | | | | | +--------+---------+ + + + | 03/16/ | Office | Neurology | Theresa, | | | 2018 | Visit | | [address] | | | | | | [address] [place], | | | | | | [place] [address] | | | | | | [phone] | | | | | | | | +--------+---------+ + + + | 04/12/ | Office | Primary Care | Massimo Ramos Pedro Luis | | | 2019 | Visit | | MD Fer [address] | | | | | | [address] [place] | | | | | | [address] | | | | | | | | +--------+---------+ + + + | 10/03/ | Office | Neurology | Fabián Carias MD | | | 2019 | Visit | | [address] | | | | | | [place] | | | | | | [address] | | | | | | | [...] | | | care | | | Security Operations Manager-C | | | | | | [...] | | | care | | | Security Operations Manager-C | | | | | | [...] | | | care | | | Security Operations Manager-C | | | | | | [...] | | | care | | | Security Operations Manager-C | | | | | | [...] current use of insulin | | (HCC) - Primary | + + documented in this encounter"
--- OUTSIDE RECORDS SUMMARY | ~2019-02-17 | XMS | Encounter Summary ---
Demographics + + + | Address | [address] | | | [place] [address] | + + + | Home Phone [...] Team Providers + +------+ + | Care Letterpress Printing Machinist Name | Role | Phone | + [...] + | 07/13/ | Telephone | [facility] | Charline Banks, | Transitions Of Care | | 2019 | | [facility] | Case | | | | | MEDICAL [facility] | Poleyard Supervisor-Clinical | | | | | [address] [facility], | | | | | | [place] [address] | | | | | | [phone] | | | +--------+ + + + [...] [place] | | | | | | [address] | | | | | | [phone] | | | | | | | | +--------+---------+ + + + | 02/26/ | Office | Urology | Lillie Fowler | | | 2018 | Visit | | LILLIE Lopez [address] | | | | | | [address] | | | | | | [place], [place] | | | | | | [address] | | | | | | [phone] | | | | | | | | +--------+---------+ + + + | 03/16/ | Office | Neurology | Theresa, | | | 2018 | Visit | | SHONDA Mckinney [address] [place], | | | | | | [place] [address] | | | | | | [phone] | | | | | | | | +--------+---------+ + + + | 04/12/ | Office | Primary Care | Massiom Ramos | | | 2019 | Visit | | MD Fer [address] | | | | | | [address] [place] | | | | | | [address] | | | | | | | | +--------+---------+ + + + | 10/03/ | Office | Neurology | Fabián Carias MD | | | 2019 | Visit | | [address] | | | | | | [place] | | | | | | [address] | | | | | | | [...] | | | care | | | Poleyard Supervisor-C | | | | | | [...] | | | care | | | Poleyard Supervisor-C | | | | | | [...] | | | care | | | Poleyard Supervisor-C | | | | | | [...] | | | care | | | Poleyard Supervisor-C | | | | | | | linical | + +--------+ +---+-----+ + + + | Note: Pt will | | check CBG's daily x1 | | Pt will take Lantis as | | prescribed | + + documented as of this encounter Visit Diagnoses Not on filedocumented in this encounter"
--- OUTSIDE RECORDS SUMMARY | ~2019-02-17 | XMS | Encounter Summary ---
Demographics + + + | Address | [address] | | | [place] [address] | + + + | Home Phone [...] Team Providers + +------+ + | Care Asian Studies Professor Name | Role | Phone | + [...] | | | DR [address]IRISHA [place], | [facility], [place] | | | | | [place] [address] | [address] | | | | | [phone] | [phone] | | | | | | | [...] [place] | | | | | | [address] | | | | | | [phone] | | | | | | | | +--------+---------+ + + + | 02/26/ | Office | Urology | Lillie Fowler | | | 2018 | Visit | | [address]IE [address] | | | | | | [address] | | | | | | [place] | | | | | | [address] | | | | | | [phone] | | | | | | | | +--------+---------+ + + + | 03/16/ | Office | Neurology | Theresa, | | | 2018 | Visit | | [address] | | | | | | [address] [place], | | | | | | [place] [address] | | | | | | [phone] | | | | | | | | +--------+---------+ + + + | 04/12/ | Office | Primary Care | Massimo Ramos | | | 2019 | Visit | | MD Fer [address] | | | | | | [place] | | | | | | [address] | | | | | | | | +--------+---------+ + + + | 10/03/ | Office | Neurology | Fabián Carias MD | | | 2019 | Visit | | [address] | | | | | | [place] | | | | | | [address] | | | | | | | [...] | | | care | | | Glassware Maker Demonstrator-C | | | | | | | [...] | | | care | | | Glassware Maker Demonstrator-C | | | | | | | [...] | | | care | | | Glassware Maker Demonstrator-C | | | | | | | [...] | | | care | | | Glassware Maker Demonstrator-C | | | | | | | linical | + +--------+ +---+-----+ + + + | Note: Pt will | | check CBG's daily x1 | | Pt will take Lantis as | | prescribed | + + documented as of this encounter Visit Diagnoses Not on filedocumented in this encounter"
--- OUTSIDE RECORDS SUMMARY | ~2019-02-17 | XMS | Encounter Summary ---
Demographics + + + | Address | [address] | | | [place] [address] | + + + | Home Phone | | + + + | Preferred Language | Unknown | + + + | Marital Status | | + + + | Bahai Affiliation | 1025 | + + + | Race | Unknown | + + + | Ethnic Group | Unknown | + + + Author + + + | Author | [facility] | | | and [place] | + + + | Organization | [facility] | | | [...] Team Providers + +------+ + | Care Looping Inspector Name | Role | Phone | [...] | | [address] [place], | [address] | | | | | [place] [address] | [phone] | | | | | [phone] | | | +--------+ + + + [...] [place] | | | | | | [address] | | | | | | [phone] | | | | | | | | +--------+---------+ + + + | 02/26/ | Office | Urology | Lillie Fowler | | | 2018 | Visit | | [address] | | | | | | [address] | | | | | | [place], [place] | | | | | | [address] | | | | | | [phone] | | | | | | | | +--------+---------+ + + + | 03/16/ | Office | Neurology | Theresa, | | | 2018 | Visit | | [address] | | | | | | [address] [place], | | | | | | [place] [address] | | | | | | [phone] | | | | | | | | +--------+---------+ + + + | 04/12/ | Office | Primary Care | Massimo Ramos | | | 2019 | Visit | | MD Fer [address] | | | | | | [address] [place], [place] | | | | | | [address] | | | | | | | | +--------+---------+ + + + | 10/03/ | Office | Neurology | Fabián Carias MD | | | 2019 | Visit | | [address] | | | | | | [place] | | | | | | [address] | | | | | | | [...] | | | care | | | Main Entree Cook And Cashier-C | | | | | | | [...] | | | care | | | Main Entree Cook And Cashier-C | | | | | | | [...] | | | care | | | Main Entree Cook And Cashier-C | | | | | | | [...] | | | care | | | Main Entree Cook And Cashier-C | | | | | | | linical | + +--------+ +---+-----+ + + + | Note: Pt will | | check CBG's daily x1 | | Pt will take Lantis as | | prescribed | + + documented as of this encounter Visit Diagnoses Not on filedocumented in this encounter"
--- OUTSIDE RECORDS SUMMARY | ~2019-02-17 | XMS | Encounter Summary ---
Demographics + + + | Address | [address] | | | [place] [address] | + + + | Home Phone [...] Team Providers + +------+ + | Care Allergist/Immunologist Name | Role | Phone | + [...] | | | [facility] | Cold Rolling Machine Setter-Clinical | | | | | [address]TH [facility], | | | | | | [place] [address] | | | | | | [phone] | | | +--------+ + + + [...] [place] | | | | | | [address] | | | | | | [phone] | | | | | | | | +--------+---------+ + + + | 02/26/ | Office | Urology | Lillie Fowler | | | 2018 | Visit | | [address] | | | | | | [address] | | | | | | [place], [place] | | | | | | [address] | | | | | | [phone] | | | | | | | | +--------+---------+ + + + | 03/16/ | Office | Neurology | Theresa, | | | 2018 | Visit | | [address] | | | | | | [address] [place], | | | | | | [place] [address] | | | | | | [phone] | | | | | | | | +--------+---------+ + + + | 04/12/ | Office | Primary Care | Massimo Ramos | | | 2019 | Visit | | MD Fer [address] | | | | | | [place] | | | | | | [address] | | | | | | | | +--------+---------+ + + + | 10/03/ | Office | Neurology | Fabián Carias MD | | | 2019 | Visit | | [address] | | | | | | [place] | | | | | | [address] | | | | | | | [...] | | care | | | Cold Rolling Machine Setter-C | | | | | | | [...] | | care | | | Cold Rolling Machine Setter-C | | | | | | | [...] | | care | | | Cold Rolling Machine Setter-C | | | | | | | [...] | | care | | | Cold Rolling Machine Setter-C | | | | | | | linical | + +--------+ +---+-----+ + + + | Note: Pt will | | check CBG's daily x1 | | Pt will take Lantis as | | prescribed | + + documented as of this encounter Visit Diagnoses Not on filedocumented in this encounter"
--- OUTSIDE RECORDS SUMMARY | ~2019-02-17 | XMS | Encounter Summary ---
Demographics + + + | Address | [address] | | | [place] [address] | + + + | Home Phone [...] Team Providers + +------+ + | Care Ore Fielder Name | Role | Phone | + +------+ + | Horacio Silvestre DO | PCP | | + +------+ + Encounter Details +--------+ + + + + | Date | Type | Department | Care Team | Description | +--------+ + + + + | 08/25/ | Hospital | [facility] [facility] | Horacio Silvestre, | Panlobular emphysema | | 2018 | Encounter | HOSPITAL [facility] | DO [address] | ([facility]) | | | | THERAPY [address] | [place] | | | | | [place], [place] | [address] | | | | | [address] | [phone] | | | | | [phone] | | | +--------+ + + + [...] | | | | | | 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 | capsule | | 18 | 8 | | capsule | | [...] documented as of this encounter Progress Notes Silverio Humphries, RAE - 08/25/2017 4:26 PM Rach Mcfadden completed Full Pulmonary Fun ction Test. Results faxed/sent to aerospace quality engineer for review. Patient discharged in stable condition per patient baseline level. Final/Interpreted results will be scanned into [email or web address] and sent to Ordering Provider. Electronically signed by: Silverio Humphries, RAE 08/25/2017 16:26 documented in this encounter Plan of Treatment [...] [place] | | | | | | [address] | | | | | | [phone] | | | | | | | | +--------+---------+ + + + | 02/26/ | Office | Urology | Lillie Fowler | | | 2018 | Visit | | [address] | | | | | | [address] | | | | | | [place], [place] | | | | | | [address] | | | | | | [phone] | | | | | | | | +--------+---------+ + + + | 03/16/ | Office | Neurology | Theresa, | | | 2019 | Visit | | [address] | | | | | | [address] [place], | | | | | | [place] [address] | | | | | | [phone] | | | | | | | | +--------+---------+ + + + | 04/12/ | Office | Primary Care | Massimo Ramos | | | 2019 | Visit | | MD Fer [address] | | | | | | [place] | | | | | | [address] | | | | | | | | +--------+---------+ + + + | 10/03/ | Office | Neurology | Fabián Carias MD | | | 2019 | Visit | | [address] | | | | | | [place] | | | | | | [address] | | | | | | | [...] | | care | | | Business Partner-C | | | | | | | [...] | | care | | | Business Partner-C | | | | | | | [...] | | care | | | Business Partner-C | | | | | | | [...] | | care | | | Business Partner-C | | | | | | | [...] | + +--------+ + + + | PFT PULMONARY | Routin | 08/29/2017 | Panlobular | Results for this | | FUNCTION TESTING | e | 2:26 PM | emphysema (HCC) | procedure are in the | | ORDERS | | PDT | | results section. | + +--------+ + + + documented in this encounter Results Pulmonary function test (08/29/2017 2:26 PM PDT) + + + | Narrative | Performed At | + + + | | | + + + documented in this encounter Visit Diagnoses + + | Diagnosis | + + | Panlobular emphysema (HCC) Other emphysema | + + documented in this encounter"
--- OUTSIDE RECORDS SUMMARY | ~2019-02-17 | XMS | Encounter Summary ---
Demographics + + + | Address | [address] | | | [place] [address] | + + + | Home Phone [...] Team Providers + +------+ + | Care Tax Services Professional Name | Role | Phone | [...] | +--------+ + + + + | 11/10/ | Telephone | [place] [facility] | Charline Banks, | Care Coordination | | 2019 | | [facility] | Case | | | | | [facility] | Oil Pumper-Clinical | | | | | [address] [facility] [place], | | | | | | [place] [address] | | | | | | [phone] | | | +--------+ + + + [...] [place] | | | | | | [address] | | | | | | [phone] | | | | | | | | +--------+---------+ + + + | 02/26/ | Office | Urology | Lillie Fowler | | | 2018 | Visit | | [address] | | | | | | [address] | | | | | | [place], [place] | | | | | | [address] | | | | | | [phone] | | | | | | | | +--------+---------+ + + + | 03/16/ | Office | Neurology | Theresa, | | | 2018 | Visit | | [address] | | | | | | [address] [place], | | | | | | [place] [address] | | | | | | [phone] | | | | | | | | +--------+---------+ + + + | 04/12/ | Office | Primary Care | Massimo Ramos | | | 2019 | Visit | | MD Fer [address] | | | | | | [place] | | | | | | [address] | | | | | | | | +--------+---------+ + + + | 10/03/ | Office | Neurology | Fabián Carias MD | | | 2019 | Visit | | [address] | | | | | | [place] | | | | | | [address] | | | | | | | [...] | | | care | | | Oil Pumper-C | | | | | | | [...] | | | care | | | Oil Pumper-C | | | | | | | [...] | | | care | | | Oil Pumper-C | | | | | | | [...] | | | care | | | Oil Pumper-C | | | | | | | [...]
--- OUTSIDE RECORDS SUMMARY | ~2019-02-17 | XMS | Encounter Summary ---
Demographics + + + | Address | [address] | | | [place] [address] | + + + | Home Phone [...] Team Providers + +------+ + | Care Mechanic Name | Role | Phone | [...] | Respiratory | | | | | [phone] | [address] | Therapy [address] | | | | | good through | [address], | [address] | | | | | 01/19/19 | [address] | [place], [place] | | | | | Procedures | [place], [place] | [address] | | | | | CC EEG | [address] | Phone: | | | | | | Phone: | [phone] | | | | | | [phone] | Fax: | | | | | | Fax: | [phone] | | | | | | [phone] | | +--------+--------+ + + + + [...] | | | DR [place] | [address] | | | | | [address] | | | | | | [phone] | | | +--------+ + + + [...] | | use of insulin ([facility]) | | | | | | [...] [place] | | | | | | [address] | | | | | | [phone] | | | | | | | | +--------+---------+ + + + | 02/26/ | Office | Urology | Lillie Fowler | | | 2018 | Visit | | [address] | | | | | | [address] | | | | | | [place], [place] | | | | | | [address] | | | | | | [phone] | | | | | | | | +--------+---------+ + + + | 03/16/ | Office | Neurology | Theresa, | | | 2018 | Visit | | [address] | | | | | | [address] [place], | | | | | | [place] [address] | | | | | | [phone] | | | | | | | | +--------+---------+ + + + | 04/12/ | Office | Primary Care | Massimo Ramos | | | 2019 | Visit | | MD Fer [address] | | | | | | [place] | | | | | | [address] | | | | | | | | +--------+---------+ + + + | 10/03/ | Office | Neurology | Fabián Carias MD | | | 2019 | Visit | | [address] | | | | | | [place] | | | | | | [address] | | | | | | | [...] | | care | | | Home Paraprofessional-C | | | | | | | [...] | | care | | | Home Paraprofessional-C | | | | | | | [...] | | care | | | Home Paraprofessional-C | | | | | | | [...] | | care | | | Home Paraprofessional-C | | | | | | | [...]
--- OUTSIDE RECORDS SUMMARY | ~2019-02-17 | XMS | Encounter Summary ---
Demographics + + + | Address | [address] | | | [place] [address] | + + + | Home Phone [...] Team Providers + +------+ + | Care City Auditor Name | Role | Phone | + [...] | 2017 | | [facility] | DO [address] | | | | | [facility] | [facility], [place] | | | | | [address] [place], | [address] | | | | | [place] [address] | [phone] | | | | | [phone] | | | +--------+--------+ + + + [...] [place] | | | | | | [address] | | | | | | [phone] | | | | | | | | +--------+---------+ + + + | 02/26/ | Office | Urology | Lillie Fowler | | | 2018 | Visit | | [address] | | | | | | [address] | | | | | | [place], [place] | | | | | | [address] | | | | | | [phone] | | | | | | | | +--------+---------+ + + + | 03/16/ | Office | Neurology | Theresa, | | | 2018 | Visit | | [address] | | | | | | [address] [place], | | | | | | [place] [address] | | | | | | [phone] | | | | | | | | +--------+---------+ + + + | 04/12/ | Office | Primary Care | Massimo Ramos | | | 2019 | Visit | | MD Fer [address] | | | | | | [place] | | | | | | [address] | | | | | | | | +--------+---------+ + + + | 10/03/ | Office | Neurology | Fabián Carias MD | | | 2019 | Visit | | [address] | | | | | | [place] | | | | | | [address] | | | | | | | [...] | | care | | | Group Therapist-C | | | | | | | [...] | | care | | | Group Therapist-C | | | | | | | [...] | | care | | | Group Therapist-C | | | | | | | [...] | | care | | | Group Therapist-C | | | | | | | [...] | | unspecified | + + | 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
--- OUTSIDE RECORDS SUMMARY | ~2019-02-17 | XMS | Encounter Summary ---
Demographics + + + | Address | [address] | | | [place] [address] | + + + | Home Phone [...] Team Providers + +------+ + | Care Stitch Bonding Machine Tender Name | Role | Phone [...] Wgr Mri | | | | | Cervical | Fabián Panda, | [address] | | | | | radiculopath | [address] | | | | | y Neck | [address], | [place], [place] | | | | | pain, | [place] | [address] | | | | | bilateral | [place], [place] | Phone: | | | | | Procedures | [address] | [phone] | | | | | MRI Cervical | Phone: | Fax: | | | | | Spine wo | [phone] | [phone] | | | | | Contrast | Fax: | | | | | | | [phone] | | +--------+--------+ + + + + [...] Wgr Mri | | | | | Cervical | Fabián Panda, | [address] | | | | | radiculopath | [address] | | | | | y Neck | [address], | [place], [place] | | | | | pain, | [place] | [address] | | | | | bilateral | [place], [place] | Phone: | | | | | Procedures | [address] | [phone] | | | | | MRI Cervical | Phone: | Fax: | | | | | Spine wo | [phone] | [phone] | | | | | Contrast | Fax: | | | | | | | [phone] | | +--------+--------+ + + + + Encounter Details +--------+ + + + + | Date | Type | Department | Care Team | Description | +--------+ + + + + | 01/30/ | Hospital | [place] [facility] | Fabián Carias MD | Cervical | | 2018 | Encounter | Hospital MRI [address] | [address] | radiculopathy; Neck | | | | [address] | [address] [place], [place] | pain, bilateral | | | | [place], [place] | [address] | | | | | [address] | | | | | | [phone] | | | +--------+ + + + [...] | | use of insulin ([facility]) | | | | | [...] | | use of insulin ([facility]) | | | | | [...] | | | | | | 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, 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 | | | | | | | [...] [place] | | | | | | [address] | | | | | | [phone] | | | | | | | | +--------+---------+ + + + | 02/26/ | Office | Urology | Lillie Fowler | | | 2019 | Visit | | [address] | | | | | | [address] | | | | | | [place], [place] | | | | | | [address] | | | | | | [phone] | | | | | | | | +--------+---------+ + + + | 03/16/ | Office | Neurology | Theresa, | | | 2018 | Visit | | [address] | | | | | | [address] [place], | | | | | | [place] [address] | | | | | | [phone] | | | | | | | | +--------+---------+ + + + | 04/12/ | Office | Primary Care | Massimo Ramos Pedro Luis | | | 2019 | Visit | | MD Fer [address] | | | | | | [place] | | | | | | [address] | | | | | | | | +--------+---------+ + + + | 10/03/ | Office | Neurology | Fabián Carias MD | | | 2019 | Visit | | [address] | | | | | | [place] | | | | | | [address] | | | | | | | [...] | care | | | Head Of Sales Promotion-C | | | | | | | [...] | care | | | Head Of Sales Promotion-C | | | | | | | [...] | care | | | Head Of Sales Promotion-C | | | | | | | [...] | care | | | Head Of Sales Promotion-C | | | | | | | [...] + +--------+ + + + | MRI CERVICAL SPINE | Routin | 01/30/2018 | Cervical | Results for this | | WO CONTRAST | e | 10:04 AM | radiculopathy Neck | procedure are in the | | | | PDT | pain, bilateral | results section. | + +--------+ + + + documented in this encounter Results MRI Cervical Spine wo Contrast (01/30/2018 10:04 AM PDT) + + | Specimen | + + | | + + + + + | Impressions | Performed At | + + + | IMPRESSION: Multilevel degenerative change of the cervical spine as | [facility] | | sequentially detailed above. Correlation with dermatomal | | | distribution of symptoms is recommended. Remote right cerebellar | | | lacunar infarct. Unchanged compared November 08, 2016 Dictated by: | | | Massimo Alba Electronically Signed by: Massimo Alba on | | | 01/30/2018 10:39 AM | | + + + + + + | Narrative | Performed At | + + + | EXAMINATION: MRI CERVICAL SPINE WO CONTRAST HISTORY: | [facility] | | persistent neck pain with radiculopathy COMPARISON STUDY: November | | | 2014 TECHNIQUE: Multiplanar multi sequence MRI of the | | | cervical spine was performed without contrast FINDINGS: | | | Vertebral body alignment is normal. Mild disc height loss at C5-6 | | | and C6-7. Endplate productive changes noted at C5-6 and C6-7. | | | Hydration of discs is diffusely decreased. Bone marrow signal is | | | is physiologic. No fracture is identified. Cord signal intensity | | | is normal. The skull base is unremarkable. C2-C3: Disc | | | unremarkable. No central or foraminal stenosis. C3-C4: Broad-based | | | disc osteophyte complex approaches the ventral cord and results in | | | mild central stenosis. There is mild uncovertebral facet | | | hypertrophy. Moderate bilateral foraminal narrowing. C4-C5: Mild | | | broad-based disc bulge approaches the ventral cord. Mild central | | | stenosis. Uncovertebral facet hypertrophy. Mild right and moderate | | | left foraminal narrowing. C5-C6: Broad-based disc bulge touches | | | the ventral cord. Mild central stenosis. Mild bilateral foraminal | | | narrowing. C6-C7: Mild broad-based disc osteophyte complex. | | | Minimal central stenosis. No foraminal narrowing. C7-T1: Disc | | | unremarkable. No central or foraminal stenosis. Paravertebral soft | | | tissues are unremarkable. The major flow voids are present. | | | Remote right cerebellar lacunar infarct is incidentally noted. | | + + + + + | Procedure Note | + + | Adithya Mcneill Results In - 01/30/2018 10:43 AM PDT EXAMINATION:MRI CERVICAL SPINE WO | | CONTRASTHISTORY:persistent neck pain with radiculopathyCOMPARISON STUDY:November 24 | | 2014TECHNIQUE:Multiplanar multi sequence MRI of the cervical spine was performed without | | contrastFINDINGS:Vertebral body alignment is normal. Mild disc height loss at C5-6 | | and C6-7. Endplate productive changes noted at C5-6 and C6-7. Hydration of discs is | | diffusely decreased. Bone marrow signal is is physiologic. No fracture is identified. | | Cord signal intensity is normal. The skull base is unremarkable.C2-C3: Disc | | unremarkable. No central or foraminal stenosis.C3-C4: Broad-based disc osteophyte | | complex approaches the ventral cord and results in mild central stenosis. There is mild | | uncovertebral facet hypertrophy. Moderate bilateral foraminal narrowing.C4-C5: Mild | | broad-based disc bulge approaches the ventral cord. Mild central stenosis. | | Uncovertebral facet hypertrophy. Mild right and moderate left foraminal | | narrowing.C5-C6: Broad-based disc bulge touches the ventral cord. Mild central | | stenosis. Mild bilateral foraminal narrowing.C6-C7: Mild broad-based disc osteophyte | | complex. Minimal central stenosis. No foraminal narrowing.C7-T1: Disc unremarkable. No | | central or foraminal stenosis.Paravertebral soft tissues are unremarkable. The major | | flow voids are present. Remote right cerebellar lacunar infarct is incidentally | | noted.IMPRESSION: IMPRESSION:Multilevel degenerative change of the cervical spine as | | sequentially detailed above. Correlation with dermatomal distribution of symptoms is | | recommended.Remote right cerebellar lacunar infarct. Unchanged compared November 08 | | 2016Dictated by: Massimo Hutchinsnoam | | 10:39 AM | | | |C5-C6: Broad-based disc bulge touches the ventral cord. Mild central stenosis. Mild bilat eral foraminal narrowing. | | | |C6-C7: Mild broad-based disc osteophyte complex. Minimal central stenosis. No foraminal n arrowing. | | | |C7-T1: Disc unremarkable. No central or foraminal stenosis. | | | |Paravertebral soft tissues are unremarkable. The major flow voids are present. Remote rig ht cerebellar lacunar infarct is incidentally noted. | | | |IMPRESSION: | |IMPRESSION: | |Multilevel degenerative change of the cervical spine as sequentially detailed above. Corre lation with dermatomal distribution of symptoms is recommended. | |Remote right cerebellar lacunar infarct. Unchanged compared November 08, 2016 | | | |Dictated by: Massimo Alba | | | | | + + + +---------+ + + | Performing | Address | City/State/Zipcode | Phone Number | | Organization | | | | + +---------+ + + | [facility] | | | | + +---------+ + + documented in this encounter Visit Diagnoses + + | Diagnosis | + + | Cervical radiculopathy Brachial neuritis or radiculitis nos | + + | Neck pain, bilateral Cervicalgia | + + documented in this encounter
--- OUTSIDE RECORDS SUMMARY | ~2019-02-17 | XMS | Encounter Summary ---
Demographics + + + | Address | [address] | | | [place] [address] | + + + | Home Phone [...] Team Providers + +------+ + | Care Block Splitter Operator Name | Role | Phone | + +------+ + | Horacio Silvestre DO | PCP | | + +------+ + Encounter Details +--------+ + + + + | Date | Type | Department | Care Team | Description | +--------+ + + + + | 06/02/ | Orders Only | [facility] | Horacio Silvestre, | | | 2018 | | [facility] | DO [address] | | | | | [facility] [address] | [place], [place] | | | | | [address] [place], | [address] | | | | | [place] [address] | [phone] | | | | | [phone] | | | +--------+ + + + [...] [place] | | | | | | [address] | | | | | | [phone] | | | | | | | | +--------+---------+ + + + | 02/26/ | Office | Urology | Lillie Fowler | | | 2018 | Visit | | [address] | | | | | | [address] | | | | | | [place], [place] | | | | | | [address] | | | | | | [phone] | | | | | | | | +--------+---------+ + + + | 03/16/ | Office | Neurology | Theresa, | | | 2018 | Visit | | [address] | | | | | | [address] [place], | | | | | | [place] [address] | | | | | | [phone] | | | | | | | | +--------+---------+ + + + | 04/12/ | Office | Primary Care | Massimo Ramos | | | 2019 | Visit | | MD Fer [address] | | | | | | [address] [place], [place] | | | | | | [address] | | | | | | | | +--------+---------+ + + + | 10/03/ | Office | Neurology | Fabián Carias MD | | | 2019 | Visit | | [address] | | | | | | [place] | | | | | | [address] | | | | | | | [...] | | | care | | | Dry Plasterer Helper-C | | | | | | [...] | | | care | | | Dry Plasterer Helper-C | | | | | | [...] | | | care | | | Dry Plasterer Helper-C | | | | | | [...] | | | care | | | Dry Plasterer Helper-C | | | | | | | linical | + +--------+ +---+-----+ + + + | Note: Pt will | | check CBG's daily x1 | | Pt will take Lantis as | | prescribed | + + documented as of this encounter Visit Diagnoses Not on filedocumented in this encounter"
--- OUTSIDE RECORDS SUMMARY | ~2019-02-17 | XMS | Encounter Summary ---
Demographics + + + | Address | [address] | | | [place] [address] | + + + | Home Phone [...] Team Providers + +------+ + | Care Instant Powder Supervisor Name | Role | Phone | + +------+ + | Ryan Gutiérrez MD | PCP | | + +------+ + Encounter Details +--------+ + + + + | Date | Type | Department | Care Team | Description | +--------+ + + + + | 10/13/ | Hospital | [facility] | Conversion | | | 2014 | Encounter | [facility] | Transaction, | | | | | [address] [place] | Provider Unknown | | | | | [place] | | | | | | [address] | (Fax) | | | | | [phone] | | | +--------+ + + + [...] [place] | | | | | | [address] | | | | | | [phone] | | | | | | | | +--------+---------+ + + + | 02/26/ | Office | Urology | Lillie Fowler | | | 2018 | Visit | | [address] | | | | | | [address] | | | | | | [place] | | | | | | [address] | | | | | | [phone] | | | | | | | | +--------+---------+ + + + | 03/16/ | Office | Neurology | Theresa, | | | 2018 | Visit | | [address] | | | | | | [address] [place], | | | | | | [place] [address] | | | | | | [phone] | | | | | | | | +--------+---------+ + + + | 04/12/ | Office | Primary Care | Massimo Ramos | | | 2019 | Visit | | MD Fer [address] | | | | | | [place] | | | | | | [address] | | | | | | | | +--------+---------+ + + + | 10/03/ | Office | Neurology | Fabián Carias MD | | | 2019 | Visit | | [address] | | | | | | [place] | | | | | | [address] | | | | | | | [...] | | care | | | Supervisor Graphite-C | | | | | | | [...] | | care | | | Supervisor Graphite-C | | | | | | | [...] | | care | | | Supervisor Graphite-C | | | | | | | [...] | | care | | | Supervisor Graphite-C | | | | | | | [...] + | POC GLUCOSE, | Routin | 10/14/2013 | | Results for this | | RAPIDPOINT | e | 12:08 PM | | procedure are in the | | | | PDT | | results section. | + +--------+ + + + | POC GLUCOSE, | Routin | 10/14/2013 | | Results for this | | RAPIDPOINT | e | 5:44 AM | | procedure are in the | | | | PDT | | results section. | + +--------+ + + + | TROPONIN I | Routin | 10/13/2013 | | Results for this | | | e | 10:02 PM | | procedure are in the | | | | PDT | | results section. | + +--------+ + + + | TROPONIN I | Routin | 10/13/2013 | | Results for this | | | e | 6:02 PM | | procedure are in the | | | | PDT | | results section. | + +--------+ + + + | CBC W/AUTO | Routin | 10/13/2013 | | Results for this | | DIFFERENTIAL | e | 5:00 AM | | procedure are in the | | | | PDT | | results section. | + +--------+ + + + | COMPREHENSIVE | Routin | 10/13/2013 | | Results for this | | METABOLIC PANEL | e | 5:00 AM | | procedure are in the | | | | PDT | | results section. | + +--------+ + + + | TROPONIN I | Routin | 10/13/2013 | | Results for this | | | e | 2:02 AM | | procedure are in the | | | | PDT | | results section. | + +--------+ + + + documented in this encounter Results POC Glucose, Rapidpoint (10/14/2013 12:08 PM PDT) + +-------+ + + + [...] + +---------+ + + POC Glucose, Rapidpoint (10/14/2013 5:44 AM PDT) + +-------+ + + + [...] | + +---------+ + + Troponin I (10/13/2013 10:02 PM PDT) + +-------+ + + + [...] | + +---------+ + + Troponin I (10/13/2013 6:02 PM PDT) + +-------+ + + + [...] + +---------+ + + Comprehensive Metabolic Panel (10/13/2013 5:00 AM PDT) + +-------+ + + [...] +-------+ + + + | Cl | 108 | 95 - 108 mmol/L | EXTERNAL [...] | 8.7 | 8.3 - 10.0 | EXTERNAL | | | | | mg/dL | LAB | | + +-------+ + + + | Glucose | 116 | 70 - 110 mg/dL [...] +-------+ + + + | Protein, | 7 | 6.6 - 8.5 g/dL | EXTERNAL | | | Total | | | LAB | | + +-------+ + + + | Albumin | 3.4 | 3.0 - 4.5 g/dL | EXTERNAL | | | | | | LAB | | + +-------+ + + + | Alkaline | 85 | 33 - 151 U/L | EXTERNAL | | | Phosphatase | | | LAB | | + +-------+ + + + | ALT, | 28 | 18 - 63 U/L | EXTERNAL | | | External | | | LAB | | + +-------+ + + + | AST, | 25 | <=38 U/L | EXTERNAL | | [...] +---------+ + + CBC w/ Auto Differential (10/13/2013 5:00 AM PDT) + +-------+ + + + | Component | Value | Ref Range | Performed | Pathologist | | | | | At | Signature | + +-------+ + + + | WBC | 8.1 | 4.6 - 10.5 | EXTERNAL | | | | | 1000/mm3 | LAB | | + +-------+ + + + | RBC | 4.62 | 4.36 - 5.83 | EXTERNAL | | | | | mil/mm3 | LAB | | + +-------+ + + + | HGB, | 13.7 | 13.1 - 17.4 | EXTERNAL | | | External | | g/dL | LAB | | + +-------+ + + + | HCT, | 41 | 39.0 - 51.9 % | EXTERNAL [...] +-------+ + + + | MCHC | 33.4 | 32.0 - 36.9 | EXTERNAL | | | | | g/dL | LAB | | + +-------+ + + + | RDW-CV | 13.6 | <=17.0 % | EXTERNAL | | | | | | LAB | | + +-------+ + + + | RDW-SD | 43.4 | 34.0 - 57.0 fL | EXTERNAL | | | | | | LAB | | + +-------+ + + + | Platelet | 181 | 150 - 450 | EXTERNAL | | | Count | | 1000/mm3 | LAB | | | Plasma | | | | | + +-------+ + + + | MPV | 10.8 | 9.4 - 12.4 FL | EXTERNAL | | | | | | LAB | | + +-------+ + + + | % Segmented | 57 | 42 - 76 % | EXTERNAL | | | | | | LAB | | | Neutrophils | | | | | + +-------+ + + + | % | 23 | 29 - 49 % | EXTERNAL | | | Lymphocytes | | | LAB | | + +-------+ + + + | % Monocytes | 16 | 3 - 13 % | EXTERNAL | | | | | | LAB | | + +-------+ + + + | % | 4 | 0 - 7 % | EXTERNAL | | | Eosinophils | | | LAB | | + +-------+ + + + | % Basophils | 0 | 0 - 2 % | EXTERNAL | | | | | | LAB | | + +-------+ + + + | Absolute | 4.58 | 2.80 - 7.70 | EXTERNAL | | | Neutrophils | | 1000/mm3 | LAB | | + +-------+ + + + | Absolute | 1.85 | 1.20 - 3.30 | EXTERNAL | | | Lymphocytes | | 1000/mm3 | LAB | | + +-------+ + + + | Absolute | 1.31 | 0.00 - 0.80 | EXTERNAL | [...] | + +---------+ + + Troponin I (10/13/2013 2:02 AM PDT) + +-------+ + + + [...]
--- OUTSIDE RECORDS SUMMARY | ~2019-02-17 | XMS | Encounter Summary ---
Demographics + + + | Address | [address] | | | [place] [address] | + + + | Home Phone [...] Team Providers + +------+ + | Care Watershed Coordinator Name | Role | Phone | [...] respiratory | | 2018 | Visit | [facility] | TECHNICAL EXPERT [address] | tract infection, | | | | W[facility] [address] | [place] [address] | unspecified type | | | | [address] [place], | [phone] | (Primary Dx) | | | | [place] [address] | | | | | | [phone] | | | +--------+---------+ + + + [...] 3days of taking antibiotics Date Last Reviewed: 05/08/201619993168-1808 [employer]. [address] [place] [address]. All righ ts reserved. 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 His prescriptions were faxed to [place] per h is request. Return in about 5 days (around 07/10/2017) for If no improvemnet or sooner if acutely worseni ng.. COLLINS Mcrae07/[id number] [facility] Leonardo Narvaez LPN - 07/05/2017 11:15 AM Srikanthlakshmi Mcfadden presents to [facility] today with Chief Complaint of: Cough, sinus congestion, fevers x 2-3 days. Current medications verified with him at time of visit. Pt currently shows no s/s of distress, shortness of breath. Vital signs: BP 112/60 | Pulse 77 | Temp 37.6 C (99.7 F) (Oral) | Resp 16 | SpO2 93 % Labs Obtained per [facility] protocol: None. Verbal Report given to: SHONDA [...] [place] | | | | | | [address] | | | | | | [phone] | | | | | | | | +--------+---------+ + + + | 02/26/ | Office | Urology | Lillie Fowler | | | 2018 | Visit | | [address] | | | | | | [address] | | | | | | [place], [place] | | | | | | [address] | | | | | | [phone] | | | | | | | | +--------+---------+ + + + | 03/16/ | Office | Neurology | Theresa, | | | 2018 | Visit | | [address] | | | | | | [address] [place], | | | | | | [place] [address] | | | | | | [phone] | | | | | | | | +--------+---------+ + + + | 04/12/ | Office | Primary Care | Massimo Ramos | | | 2019 | Visit | | MD Fer [address] | | | | | | [address] [place] | | | | | | [address] | | | | | | | | +--------+---------+ + + + | 10/03/ | Office | Neurology | Fabián Carias MD | | | 2019 | Visit | | [address] | | | | | | [place] | | | | | | [address] | | | | | | | [...] | | | care | | | Faculty Criminal Justice-C | | | | | | | [...] | | | care | | | Faculty Criminal Justice-C | | | | | | | [...] | | | care | | | Faculty Criminal Justice-C | | | | | | | [...] | | | care | | | Faculty Criminal Justice-C | | | | | | | [...]
--- OUTSIDE RECORDS SUMMARY | ~2019-02-17 | XMS | Encounter Summary ---
Demographics + + + | Address | [address] | | | [place] [address] | + + + | Home Phone [...] Team Providers + +------+ + | Care Ribbon Hand Name | Role | Phone | + [...] Orders; | | 2019 | | [facility] | [address] | Home Health | | | | MEDICAL CLIN[address] | [facility], [place] | | | | | [address] [facility], | [address] | | | | | [place] [address] | [phone] | | | | | [phone] | | | +--------+ + + + [...] [place] | | | | | | [address] | | | | | | [phone] | | | | | | | | +--------+---------+ + + + | 02/26/ | Office | Urology | Lillie Fowler | | | 2018 | Visit | | [address] | | | | | | [address] | | | | | | [place], [place] | | | | | | [address] | | | | | | [phone] | | | | | | | | +--------+---------+ + + + | 03/16/ | Office | Neurology | Theresa, | | | 2018 | Visit | | [address] | | | | | | [address] [place], | | | | | | [place] [address] | | | | | | [phone] | | | | | | | | +--------+---------+ + + + | 04/12/ | Office | Primary Care | Massimo Ramos Pedro Luis | | | 2019 | Visit | | MD Fer [address] | | | | | | [place] | | | | | | [address] | | | | | | | | +--------+---------+ + + + | 10/03/ | Office | Neurology | Fabián Carias MD | | | 2019 | Visit | | [address] | | | | | | [place] | | | | | | [address] | | | | | | | [...] | | care | | | Senior Engineering Manager-C | | | | | | [...] | | care | | | Senior Engineering Manager-C | | | | | | [...] | | care | | | Senior Engineering Manager-C | | | | | | [...] | | care | | | Senior Engineering Manager-C | | | | | | [...]
--- OUTSIDE RECORDS SUMMARY | ~2019-02-17 | XMS | Encounter Summary ---
Demographics + + + | Address | [address] | | | [place] [address] | + + + | Home Phone [...] Providers + +------+ + | Care Rn Gynecology Name | Role | Phone | + [...] Medication Refill | | 2018 | | [facility] | DO [address] [place] | | | | | MEDICAL CLINIC [address] | [facility], [place] | | | | | [address] [place], | [address] | | | | | [place] [address] | [phone] | | | | | [phone] | | | +--------+ + + + [...] [place] | | | | | | [address] | | | | | | [phone] | | | | | | | | +--------+---------+ + + + | 02/26/ | Office | Urology | Lillie Fowler | | | 2018 | Visit | | [address] | | | | | | [address] | | | | | | [place], [place] | | | | | | [address] | | | | | | [phone] | | | | | | | | +--------+---------+ + + + | 03/16/ | Office | Neurology | Theresa, | | | 2018 | Visit | | [address] | | | | | | [address] [place], | | | | | | [place] [address] | | | | | | [phone] | | | | | | | | +--------+---------+ + + + | 04/12/ | Office | Primary Care | Massimo Ramos Pedro Luis | | | 2019 | Visit | | MD Fer [address] | | | | | | [address] [place] | | | | | | [address] | | | | | | | | +--------+---------+ + + + | 10/03/ | Office | Neurology | Fabián Carias MD | | | 2019 | Visit | | [address] | | | | | | [place] | | | | | | [address] | | | | | | | [...] | | | care | | | Industrial Electrician Journeyman-C | | | | | | | [...] | | | care | | | Industrial Electrician Journeyman-C | | | | | | | [...] | | | care | | | Industrial Electrician Journeyman-C | | | | | | | [...] | | | care | | | Industrial Electrician Journeyman-C | | | | | | | [...]
--- OUTSIDE RECORDS SUMMARY | ~2019-02-17 | XMS | Encounter Summary ---
Demographics + + + | Address | [address] | | | [place] [address] | + + + | Home Phone [...] Team Providers + +------+ + | Care Database Manager Name | Role | Phone | [...] Description | +--------+--------+ + + + | 10/31/ | Refill | [place] [facility] | Horacio Silvestre, | Medication Refill | | 2017 | | [facility] | [address] | | | | | MEDICAL CLINIC [address] | [facility], [place] | | | | | [address] [place], | [address] | | | | | [place] [address] | [phone] | | | | | [phone] | | | +--------+--------+ + + + [...] [place] | | | | | | [address] | | | | | | [phone] | | | | | | | | +--------+---------+ + + + | 02/26/ | Office | Urology | Lillie Fowler | | | 2018 | Visit | | [address] | | | | | | [address] | | | | | | [place], [place] | | | | | | [address] | | | | | | [phone] | | | | | | | | +--------+---------+ + + + | 03/16/ | Office | Neurology | Theresa, | | | 2018 | Visit | | [address] | | | | | | [address] [place], | | | | | | [place] [address] | | | | | | [phone] | | | | | | | | +--------+---------+ + + + | 04/12/ | Office | Primary Care | Massimo Ramos | | | 2019 | Visit | | MD Fer [address] | | | | | | [place] | | | | | | [address] | | | | | | | | +--------+---------+ + + + | 10/03/ | Office | Neurology | Fabián Carias MD | | | 2019 | Visit | | [address] | | | | | | [place] | | | | | | [address] | | | | | | | [...] | | | care | | | Account Maintenance Representative-C | | | | | | [...] | | | care | | | Account Maintenance Representative-C | | | | | | [...] | | | care | | | Account Maintenance Representative-C | | | | | | [...] | | | care | | | Account Maintenance Representative-C | | | | | | [...] | unspecified | + + | 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
--- OUTSIDE RECORDS SUMMARY | ~2019-02-17 | XMS | Encounter Summary ---
Demographics + + + | Address | [address] | | | [place] [address] | + + + | Home Phone [...] Team Providers + +------+ + | Care Manufacturing Engineering Director Name | Role | Phone | [...] | | | thy | [place] | [address] | | | | | Procedures | [address] | Phone: | | | | | PET CT Skull | Phone: | [phone] | | | | | Base To Mid | [phone] | Fax: | | | | | Thigh PET | Fax: | [phone] | | | | | CT Limited | [phone] | | +--------+--------+ + + + + [...] (Primary Dx) | | | | [address] [facility] [place], | [address] | | | | | [place] [address] | [phone] | | | | | [phone] | | | +--------+ + + + [...] [place] | | | | | | [address] | | | | | | [phone] | | | | | | | | +--------+---------+ + + + | 02/26/ | Office | Urology | Lillie Fowler | | | 2018 | Visit | | [address] | | | | | | [address] | | | | | | [place], [place] | | | | | | [address] | | | | | | [phone] | | | | | | | | +--------+---------+ + + + | 03/16/ | Office | Neurology | Theresa, | | | 2018 | Visit | | [address] | | | | | | [address] [place], | | | | | | [place] [address] | | | | | | [phone] | | | | | | | [...] | | | care | | | Hhas-C | | | | | | | [...] | | | care | | | Hhas-C | | | | | | | [...] | | | care | | | Hhas-C | | | | | | | [...] | | | care | | | Hhas-C | | | | | | | [...]
--- OUTSIDE RECORDS SUMMARY | ~2019-02-17 | XMS | Encounter Summary ---
Demographics + + + | Address | [address] | | | [place] [address] | + + + | Home Phone [...] Team Providers + +------+ + | Care Cop Breaker Name | Role | Phone | + [...] acquired | | 2017 | Visit | [facility] | [address] | pneumonia, | | | | MEDICAL CLINIC [address] | [place], [place] | unspecified | | | | [address] [place], | [address] | laterality (Primary | | | | [place] [address] | [phone] | Dx) | | | | [phone] | | | +--------+---------+ + + + [...] new to myself. He was admitted to [facility] on for pneumonia. Given IV Levaquin and [...] [place] | | | | | | [address] | | | | | | [phone] | | | | | | | | +--------+---------+ + + + | 02/26/ | Office | Urology | Lillie Fowler | | | 2018 | Visit | | [address] | | | | | | [address] | | | | | | [place], [place] | | | | | | [address] | | | | | | [phone] | | | | | | | | +--------+---------+ + + + | 03/16/ | Office | Neurology | Theresa, | | | 2018 | Visit | | [address] | | | | | | [address] [place], | | | | | | [place] [address] | | | | | | [phone] | | | | | | | [...] | 10/03/ | Office | Neurology | Fabáin Carias MD | | | 2020 | Visit | | [address] | | | | | | [place] | | | | | | [address] | | | | | | | [...] | | | care | | | Metal Model Maker-C | | | | | | [...] | | | care | | | Metal Model Maker-C | | | | | | [...] | | | care | | | Metal Model Maker-C | | | | | | [...] | | | care | | | Metal Model Maker-C | | | | | | [...]
--- OUTSIDE RECORDS SUMMARY | ~2019-02-17 | XMS | Encounter Summary ---
Demographics + + + | Address | [address] | | | [place] [address] | + + + | Home Phone [...] Providers + +------+ + | Care Merchandise Marker Name | Role | Phone | + [...] Medication Question | | 2018 | | [facility] | [address] [place] | | | | | MEDICAL CLINIC [address] | [facility], [place] | | | | | [address] [place], | [address] | | | | | [place] [address] | [phone] | | | | | [phone] | | | +--------+ + + + [...] [place] | | | | | | [address] | | | | | | [phone] | | | | | | | | +--------+---------+ + + + | 02/26/ | Office | Urology | Lillie Fowler | | | 2018 | Visit | | [address] | | | | | | [address] | | | | | | [place], [place] | | | | | | [address] | | | | | | [phone] | | | | | | | | +--------+---------+ + + + | 03/16/ | Office | Neurology | Theresa, | | | 2019 | Visit | | [address] | | | | | | [address] [place], | | | | | | [place] [address] | | | | | | [phone] | | | | | | | | +--------+---------+ + + + | 04/12/ | Office | Primary Care | Massimo Ramos | | | 2019 | Visit | | MD Fer [address] | | | | | | [place] | | | | | | [address] | | | | | | | | +--------+---------+ + + + | 10/03/ | Office | Neurology | Fabián Carias MD | | | 2019 | Visit | | [address] | | | | | | [place] | | | | | | [address] | | | | | | | [...] | | | care | | | Seam Taper Machine-C | | | | | | [...] | | | care | | | Seam Taper Machine-C | | | | | | [...] | | | care | | | Seam Taper Machine-C | | | | | | [...] | | | care | | | Seam Taper Machine-C | | | | | | | linical | + +--------+ +---+-----+ + + + | Note: Pt will | | check CBG's daily x1 | | Pt will take Lantis as | | prescribed | + + documented as of this encounter Visit Diagnoses Not on filedocumented in this encounter"
--- OUTSIDE RECORDS SUMMARY | ~2019-02-17 | XMS | Encounter Summary ---
Demographics + + + | Address | [address] | | | [place] [address] | + + + | Home Phone [...] Team Providers + +------+ + | Care Game Design Instructor Name | Role | Phone | [...] | +--------+ + + + + | 03/05/ | Telephone | [place] [facility] | Horacio Silvestre, | Medication Refill | | 2017 | | [facility] | DO [address] [place] | | | | | MEDICAL CLINIC [address] | [facility] [place] | | | | | [address] [place], | [address] | | | | | [place] [address] | [phone] | | | | | [phone] | | | +--------+ + + + [...] [place] | | | | | | [address] | | | | | | [phone] | | | | | | | | +--------+---------+ + + + | 02/26/ | Office | Urology | Lillie Fowler | | | 2018 | Visit | | [address] | | | | | | [address] | | | | | | [place], [place] | | | | | | [address] | | | | | | [phone] | | | | | | | | +--------+---------+ + + + | 03/16/ | Office | Neurology | Theresa, | | | 2018 | Visit | | [address] | | | | | | [address] [place], | | | | | | [place] [address] | | | | | | [phone] | | | | | | | | +--------+---------+ + + + | 04/12/ | Office | Primary Care | Massimo Ramos Pedro Luis | | | 2019 | Visit | | MD Fer [address] | | | | | | [place] | | | | | | [address] | | | | | | | | +--------+---------+ + + + | 10/03/ | Office | Neurology | Fabián Carias MD | | | 2019 | Visit | | [address] | | | | | | [place] | | | | | | [address] | | | | | | | [...] | | | care | | | [place] 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 | | | | | [...] | | | care | | | [place] 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 | | | | | [...] | | | care | | | [place] 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 | | | | | [...] | | | care | | | [place] 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 | | | | | [...] | | 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
--- OUTSIDE RECORDS SUMMARY | ~2019-02-17 | XMS | Encounter Summary ---
Demographics + + + | Address | [address] | | | [place] [address] | + + + | Home Phone [...] Team Providers + +------+ + | Care Stock Mover Name | Role | Phone | + +------+ + | Ryan Gutiérrez MD | PCP | | + +------+ + Encounter Details +--------+ + + + + | Date | Type | Department | Care Team | Description | +--------+ + + + + | 04/11/ | Hospital | [facility] | Horacio Silvestre, | | | 2017 | Encounter | [facility] | DO [address] | | | | | [facility] [address] | [place], [place] | | | | | [address] [place], | [address] | | | | | [place] [address] | [phone] | | | | | [phone] | | | +--------+ + + + [...] [place] | | | | | | [address] | | | | | | [phone] | | | | | | | | +--------+---------+ + + + | 02/26/ | Office | Urology | Lillie Fowler | | | 2018 | Visit | | [address]IE Lopez [address] | | | | | | [address] | | | | | | [place] | | | | | | [address] | | | | | | [phone] | | | | | | | | +--------+---------+ + + + | 03/16/ | Office | Neurology | Theresa, | | | 2018 | Visit | | [address] | | | | | | [address] [place], | | | | | | [place] [address] | | | | | | [phone] | | | | | | | | +--------+---------+ + + + | 04/12/ | Office | Primary Care | Massimo Ramos | | | 2019 | Visit | | MD Fer [address] | | | | | | [place] | | | | | | [address] | | | | | | | | +--------+---------+ + + + | 10/03/ | Office | Neurology | Fabián Carias MD | | | 2019 | Visit | | [address] | | | | | | [place] | | | | | | [address] | | | | | | | [...] | | | care | | | Chef German-C | | | | | | | [...] | | | care | | | Chef German-C | | | | | | | [...] | | | care | | | Chef German-C | | | | | | | [...] | | | care | | | Chef German-C | | | | | | | linical | + +--------+ +---+-----+ + + + | Note: Pt will | | check CBG's daily x1 | | Pt will take Lantis as | | prescribed | + + documented as of this encounter Visit Diagnoses Not on filedocumented in this encounter"
--- OUTSIDE RECORDS SUMMARY | ~2019-02-17 | XMS | Encounter Summary ---
Demographics + + + | Address | [address] | | | [place] [address] | + + + | Home Phone [...] Team Providers + +------+ + | Care Lever Operator Name | Role | Phone | [...] | [address] [place], [place] | [place] [address] | | | | | [address] | [phone] | | | | | [phone] | | | +--------+ + + + [...] [place] | | | | | | [address] | | | | | | [phone] | | | | | | | | +--------+---------+ + + + | 02/26/ | Office | Urology | Lillie Fowler | | | 2018 | Visit | | [address]IE [address] | | | | | | [address] | | | | | | [place] | | | | | | [address] | | | | | | [phone] | | | | | | | | +--------+---------+ + + + | 03/16/ | Office | Neurology | Theresa, | | | 2018 | Visit | | [address] | | | | | | [address] [place], | | | | | | [place] [address] | | | | | | [phone] | | | | | | | | +--------+---------+ + + + | 04/12/ | Office | Primary Care | Massimo Ramos | | | 2019 | Visit | | MD Fer [address] | | | | | | [place] | | | | | | [address] | | | | | | | | +--------+---------+ + + + | 10/03/ | Office | Neurology | Fabián Carias MD | | | 2019 | Visit | | [address] | | | | | | [place] | | | | | | [address] | | | | | | | [...] | | | care | | | Costume Maker-C | | | | | | [...] yle | n of | | | [place], | | | | complex | | | Case | | | | care | | | Costume Maker-C | | | | | | [...] | | | care | | | Costume Maker-C | | | | | | [...] | | | care | | | Costume Maker-C | | | | | | [...]
--- OUTSIDE RECORDS SUMMARY | ~2019-02-17 | XMS | Encounter Summary ---
Demographics + + + | Address | [address] | | | [place] [address] | + + + | Home Phone [...] Providers + +------+ + | Care Supervisor Wet End Name | Role | Phone | + +------+ + | Massimo Ramos MD | PCP | | + +------+ + Reason for Visit + + + | Reason | Comments | + + + | Back Pain | | + + + Encounter Details +--------+ + + + + | Date | Type | Department | Care Team | Description | +--------+ + + + + | 10/29/ | Telephone | [facility] | Horacio Silvestre, | Back Pain | | 2019 | | [facility] | DO [address] | | | | | MEDICAL CLIN[facility] [address] | [facility], [place] | | | | | [address] [facility], | [address] | | | | | [place] [address] | [phone] | | | | | [phone] | | | +--------+ + + + [...] [place] | | | | | | [address] | | | | | | [phone] | | | | | | | | +--------+---------+ + + + | 02/26/ | Office | Urology | Lillie Fowler | | | 2018 | Visit | | [address] | | | | | | [address] | | | | | | [place], [place] | | | | | | [address] | | | | | | [phone] | | | | | | | | +--------+---------+ + + + | 03/16/ | Office | Neurology | Theresa, | | | 2018 | Visit | | [address] | | | | | | [address] [place], | | | | | | [place] [address] | | | | | | [phone] | | | | | | | | +--------+---------+ + + + | 04/12/ | Office | Primary Care | Massimo Ramos | | | 2019 | Visit | | MD Fer [address] | | | | | | [place] | | | | | | [address] | | | | | | | | +--------+---------+ + + + | 10/03/ | Office | Neurology | Fabián Carias MD | | | 2019 | Visit | | [address] | | | | | | [place] | | | | | | [address] | | | | | | | [...] | | | care | | | Ediscovery Project Manager-C | | | | | | [...] | | | care | | | Ediscovery Project Manager-C | | | | | | [...] | | | care | | | Ediscovery Project Manager-C | | | | | | [...] | | | care | | | Ediscovery Project Manager-C | | | | | | [...]
--- OUTSIDE RECORDS SUMMARY | ~2019-02-17 | XMS | Encounter Summary ---
Demographics + + + | Address | [address] | | | [place] [address] | + + + | Home Phone [...] Team Providers + +------+ + | Care Type Cutter Name | Role | Phone | + +------+ + | Ryan Gutiérrez MD | PCP | | + +------+ + Encounter Details +--------+ + + + + | Date | Type | Department | Care Team | Description | +--------+ + + + + | 09/02/ | Hospital | [facility] | Jessica Brandt, | | | 2016 | Encounter | [facility] | CARDIOLOGY NURSE PRACTITIONER [address] | | | | | CENTER [address] | [place] | | | | | [place] | [address] | | | | | [address] | | | | | | [phone] | | | +--------+ + + + [...] [place] | | | | | | [address] | | | | | | [phone] | | | | | | | | +--------+---------+ + + + | 02/26/ | Office | Urology | Lillie Fowler | | | 2018 | Visit | | [address] | | | | | | [address] | | | | | | [place] | | | | | | [address] | | | | | | [phone] | | | | | | | | +--------+---------+ + + + | 03/16/ | Office | Neurology | Theresa, | | | 2018 | Visit | | [address] | | | | | | [address] [place], | | | | | | [place] [address] | | | | | | [phone] | | | | | | | | +--------+---------+ + + + | 04/12/ | Office | Primary Care | Massimo Ramos | | | 2019 | Visit | | MD Fer [address] | | | | | | [place] | | | | | | [address] | | | | | | | | +--------+---------+ + + + | 10/03/ | Office | Neurology | Fabián Carias MD | | | 2019 | Visit | | [address] | | | | | | [place] | | | | | | [address] | | | | | | | [...] | | | care | | | Counter Waiter-C | | | | | | | [...] | | | care | | | Counter Waiter-C | | | | | | | [...] | n of | | | Charilne M, | | | | complex | | | Case | | | | care | | | Counter Waiter-C | | | | | | | [...] | | | care | | | Counter Waiter-C | | | | | | | [...] + | HEMOGLOBIN AND | STAT | 12/08/2015 | | Results for this | | HEMATOCRIT | | 11:44 AM | | procedure are in the | | | | PDT | | results section. | + +--------+ + + + documented in this encounter Results Hemoglobin and Hematocrit (12/08/2015 11:44 AM PDT) + +-------+ + + + | Component | Value | Ref Range | Performed | Pathologist | | | | | At | Signature | + +-------+ + + + | HGB, | 10.1 | 13.1 - 17.4 | EXTERNAL | | | External | | g/dL | LAB | | + +-------+ + + + | HCT, | 31.3 | 39.0 - 51.9 % | EXTERNAL | | | External | | | LAB | | + +-------+ + + + | MCHC | 32.3 | 32.0 - 36.9 | EXTERNAL | [...]
--- OUTSIDE RECORDS SUMMARY | ~2019-02-17 | XMS | Encounter Summary ---
Demographics + + + | Address | [address] | | | [place] [address] | + + + | Home Phone [...] Team Providers + +------+ + | Care It Support Specialist Name | Role | Phone [...] diabetes | | 2018 | | [facility] | DO [address] | mellitus with | | | | MEDICAL CL[facility] [address] | [place], [place] | diabetic | | | | [address] [place], | [address] | polyneuropathy, with | | | | [place] [address] | [phone] | long-term current | | | | [phone] | | use of insulin (HCC) | [...] [place] | | | | | | [address] | | | | | | [phone] | | | | | | | | +--------+---------+ + + + | 02/26/ | Office | Urology | Lillie Fowler | | | 2018 | Visit | | [address] | | | | | [address] | | | | | | [place] | | | | | | [address] | | | | | | [phone] | | | | | | | | +--------+---------+ + + + | 03/16/ | Office | Neurology | Theresa, | | | 2018 | Visit | | [address] | | | | | | [address] [place], | | | | | | [place] [address] | | | | | | [phone] | | | | | | | | +--------+---------+ + + + | 04/12/ | Office | Primary Care | Massimo Ramos | | | 2019 | Visit | | MD Fer [address] | | | | | | [place] | | | | | | [address] | | | | | | | | +--------+---------+ + + + | 10/03/ | Office | Neurology | Fabián Carias MD | | | 2019 | Visit | | [address] | | | | | | [place], [place] | | | | | | [address] | | | | | | | [...] | | | care | | | Engineer Of System Development-C | | | | | | [...] | | | care | | | Engineer Of System Development-C | | | | | | [...] | | | care | | | Engineer Of System Development-C | | | | | | [...] | | | care | | | Engineer Of System Development-C | | | | | | [...] | [facility] | | | | mg/dL [id number] - | | HOSPITAL | | | | 129 mg/dL Near | | [facility] | | | | [id number] - 159 mg/dL | | MEDICAL | | | | [id number] - 189 | | CENTER LAB | [...] [address] | [place] [address] | [phone] | | [facility] | | | [...] + + | [facility] | [address] | [place] [address] | [phone] | | [facility] | | | [...] + + + | [facility] | [address] [place] [address] | [place] [address] | [phone] | | [facility] | | | | | MEDICAL [facility]ENTER [...] | | HOSPITAL | | | | mL/min/[id number] than | | REGIONAL | | | [...] + + + | [facility] | [address] [place] [address] | [place] [address] | [phone] | | [facility] | | | | | MEDICAL [...]
--- OUTSIDE RECORDS SUMMARY | ~2019-02-17 | XMS | Encounter Summary ---
Demographics + + + | Address | [address] | | | [place] [address] | + + + | Home Phone [...] Providers + +------+ + | Care Chemical Operations Specialist Name | Role | Phone | [...] Appointment Question | | 2019 | | [facility] | [address] | | | | | MEDICAL CLINIC [address] | [facility], [place] | | | | | [address] [place], | [address] | | | | | [place] [address] | [phone] | | | | | [phone] | | | +--------+ + + + [...] [place] | | | | | | [address] | | | | | | [phone] | | | | | | | | +--------+---------+ + + + | 02/26/ | Office | Urology | Lillie Fowler | | | 2019 | Visit | | [address] | | | | | | [address] | | | | | | [place], [place] | | | | | | [address] | | | | | | [phone] | | | | | | | | +--------+---------+ + + + | 03/16/ | Office | Neurology | Theresa, | | | 2018 | Visit | | [address] | | | | | | [address] [place], | | | | | | [place] [address] | | | | | | [phone] | | | | | | | | +--------+---------+ + + + | 04/12/ | Office | Primary Care | Richard Massimo Hsi | | | 2019 | Visit | | MD Fer [address] | | | | | | [place] | | | | | | [address] | | | | | | | | +--------+---------+ + + + | 10/03/ | Office | Neurology | Fabián Carias MD | | | 2019 | Visit | | [address] | | | | | | [place] | | | | | | [address] | | | | | | | [...] | | | care | | | Process Environmental Technician-C | | | | | | [...] | | | care | | | Process Environmental Technician-C | | | | | | [...] | | | care | | | Process Environmental Technician-C | | | | | | [...] | | | care | | | Process Environmental Technician-C | | | | | | | linical | + +--------+ +---+-----+ + + + | Note: Pt will | | check CBG's daily x1 | | Pt will take Lantis as | | prescribed | + + documented as of this encounter Visit Diagnoses Not on filedocumented in this encounter"
--- OUTSIDE RECORDS SUMMARY | ~2019-02-17 | XMS | Encounter Summary ---
Demographics + + + | Address | [address] | | | [place] [address] | + + + | Home Phone [...] Team Providers + +------+ + | Care Airport Maintenance Chief Name | Role | Phone | [...] Description | +--------+--------+ + + + | 01/13/ | Refill | [facility] | Horacio Silvestre, | Medication Refill | | 2017 | | [facility] | [address] | | | | | MEDICAL CLIN[facility] [address] | [facility], [place] | | | | | [address] [place], | [address] | | | | | [place] [address] | [phone] | | | | | [phone] | | | +--------+--------+ + + + [...] [place] | | | | | | [address] | | | | | | [phone] | | | | | | | | +--------+---------+ + + + | 02/26/ | Office | Urology | Lillie Fowler | | | 2018 | Visit | | [address] | | | | | | [address] | | | | | | [place], [place] | | | | | | [address] | | | | | | [phone] | | | | | | | | +--------+---------+ + + + | 03/16/ | Office | Neurology | Theresa, | | | 2018 | Visit | | [address] | | | | | | [address] [place], | | | | | | [place] [address] | | | | | | [phone] | | | | | | | | +--------+---------+ + + + | 04/12/ | Office | Primary Care | Massimo Ramos | | | 2019 | Visit | | MD Fer [address] | | | | | | [place] | | | | | | [address] | | | | | | | | +--------+---------+ + + + | 10/03/ | Office | Neurology | Fabián Carias MD | | | 2019 | Visit | | [address] | | | | | | [place] | | | | | | [address] | | | | | | | [...] | care | | | Director Of Cardiopulmonary Services-C | | | | | | [...] | care | | | Director Of Cardiopulmonary Services-C | | | | | | [...] | care | | | Director Of Cardiopulmonary Services-C | | | | | | | linical | + +--------+ +---+-----+ + + + | Note: Will take | | medications as prescribe | | with managing his | | med ina weekly. 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
--- OUTSIDE RECORDS SUMMARY | ~2019-02-17 | XMS | Encounter Summary ---
Demographics + + + | Address | [address] | | | [place] [address] | + + + | Home Phone [...] Team Providers + +------+ + | Care Petroleum Refining Equipment Operator Name | Role | Phone | + +------+ + | Horacio Silvestre DO | PCP | | + +------+ + Reason for Visit + + + | Reason | Comments | + + + | ER Follow-up | Acute renal insufficiency | + + + Evaluate & Treat (Routine) +--------+--------+ + + + + | Status | Reason | Specialty | Diagnoses / | Referred By | Referred To | | | | | Procedures | Contact | Contact | +--------+--------+ + + + + | Closed | | Primary Care | Diagnoses | [place] | [facility] | | | | | | [place] | [facility] | | | | | Office/outpa | MEDICAL | Primary Care | | | | | tient visit | [place] [address] | [address] | | | | | est | [place] | [place] | | | | | [address], | [address] | [address] | | | | | Authorized | [address] [place] | Phone: | | | | | For any | [place] | [phone] | | | | | clinically | [address] | Fax: | | | | | necessary | Phone: | [phone] | | | | | Visits for | [phone] | | | | | | 365 days | Fax: | | | | | | AUTH NO: | [phone] | | | | | | [phone] | | | +--------+--------+ + + + + Encounter Details +--------+---------+ + + + | Date | Type | Department | Care Team | Description | +--------+---------+ + + + | 06/09/ | Office | [facility] | Horacio Silvestre, | Acute renal failure, | | 2019 | Visit | [facility] | [facility] [address] | unspecified acute | | | | MEDICAL CLINIC [address] | [facility], [place] | renal failure type | | | | [address] [facility], | [address] | ([facility]) (Primary Dx); | | | | [place] [address] | [phone] | Bilateral impacted | | | | [phone] | | cerumen; Acute | | | | | | anterior epistaxis | +--------+---------+ + + + Social History [...] + + + | Blood Pressure | 147/90 | 06/09/2018 12:57 PM | | | | | PST | | + + + + + | Pulse | 74 | 06/09/2018 12:57 PM | | | | | PST | | + + + + + | Temperature | - | - | | + + + + + | Respiratory Rate | 18 | 06/09/2018 12:57 PM | | | | | PST | | + + + + + | Oxygen Saturation | 96% | 06/09/2018 12:57 PM | | | | | PST | | + + + + + | Inhaled Oxygen | - | - | | | Concentration | | | | + + + + + | Weight | 96.2 kg (212 lb) | 06/09/2018 12:57 PM | | | | | PST | | + + + + + | Height | 167.6 cm (5' 5.98") | 06/09/2018 12:57 PM | | | | | PST | | + + + + + | Body Mass Index | 34.23 | 06/09/2018 12:57 PM | | | | | PST [...] documented as of this encounter Progress Notes Yesenia Ortez LPN - 06/09/2018 1:00 PM PST06/09/18 Geraldo Mcfadden was seen today for ear lavage of bilateral ear. Results of lavage were small. Patient tolerated well. Ordering Provider: Horacio Silvestre. Luz Ortez LPN Horacio Montenegro DO - 06/09/2018 1:00 PM PST Patient ID: Geraldo Mcfadden is a 77 y.o. year old male Chief Complaint Patient presents with ER Follow-up Acute renal insufficiency Assessment and Plan: 1. Acute renal failure, unspecified acute renal failure type (HCC) Resolved 2. Bilateral impacted cerumen Irrigated by nurse 3. Acute anterior epistaxis Resolved Subjective: Geraldo is here to f/u on acute renal insufficiency from [facility] hospitalization 05/26/18. He i s doing better today. He was sent home after an overnight stay, told to avoid NSAIDs, given IV fluids, and given azithromycin while in the hospital. Epistaxis This is a new problem. The current episode started in the past 7 days. The problem has been resolved. Associated symptoms include congestion. He has tried position changes for the sym ptoms. The treatment provided significant relief. Allergies Allergen Reactions Zolpidem Anaphylaxis Past Medical [...] CATARACT REMOVAL; Surgeon: Tay Kern MD; Location: [facility] MOHS SURGERY Left [...] Social History Narrative No narrative on file Current Outpatient Prescriptions Medication Sig Dispense Refill aspirin 325 mg tablet Take 325 mg by mouth every morning. atorvaSTATin (LIPITOR) 10 mg tablet Take 10 mg by mouth every morning. cholecalciferol (VITAMIN D-3) 2000 units TABS Take 2,000 Units by mouth every morning. clopidogrel (PLAVIX) 75 mg tablet Take 75 mg by mouth every morning. colchicine 0.6 mg tablet Take 1 tablet by mouth every morning. 90 tablet 1 cyanocobalamin (VITAMIN B-12) 1000 MCG tablet Take [...] skin nightly. 3 vial 5 levothyroxine (SYNTHROID) 200 mcg tablet Take 1 tablet by mouth every morning (before b reakfast). 10 tablet 1 losartan (COZAAR) 50 mg tablet Take 50 mg by mouth every morning. omeprazole (PRILOSEC) 20 mg capsule Take 1 capsule by mouth every morning (before break fast). 90 capsule 1 ondansetron (ZOFRAN ODT) 4 mg disintegrating tablet Take 1 tablet by mouth every 8 hour s as needed for Nausea. 24 tablet 0 oxyCODONE 10 MG TABS Take 30 mg by mouth every morning. pregabalin (LYRICA) 300 MG capsule Take 1 capsule by mouth every evening. 30 capsule 1 tamsulosin (FLOMAX) 0.4 mg CAPS [...] medications for this visit. Objective: Vitals: BP 147/90 | Pulse 74 | Resp 18 | Ht 1.676 m (5' 5.98") | Wt 96.2 kg (212 lb) | SpO2 96 % | BMI 34.23 kg/m Physical Exam Constitutional: He appears well-developed and well-nourished. No distress. HENT: Head: Normocephalic and atraumatic. Nose: Sinus tenderness present. B/l impacted cerumen Cardiovascular: Normal rate, regular rhythm and normal heart sounds. Exam reveals no frict ion rub. No murmur heard. Pulmonary/Chest: Breath sounds normal. No respiratory distress. He has no wheezes. He has n o rales. Vitals reviewed. This note was transcribed [...] [place] | | | | | | [address] | | | | | | [phone] | | | | | | | | +--------+---------+ + + + | 02/26/ | Office | Urology | Lillie Fowler | | | 2018 | Visit | | [address]IE [address] | | | | | | [address] | | | | | | [place], [place] | | | | | | [address] | | | | | | [phone] | | | | | | | | +--------+---------+ + + + | 03/16/ | Office | Neurology | Theresa, | | | 2019 | Visit | | [address] | | | | | [address] [place], | | | | | | [place] [address] | | | | | | [phone] | | | | | | | | +--------+---------+ + + + | 04/12/ | Office | Primary Care | Msasimo Ramos | | | 2019 | Visit | | MD Fer [address] | | | | | | [place] | | | | | | [address] | | | | | | | | +--------+---------+ + + + | 10/03/ | Office | Neurology | Fabián Carias MD | | | 2019 | Visit | | [address] | | | | | | [place] | | | | | | [address] | | | | | | | [...] | | | care | | | Slice Plug Cutter Operator Helper-C | | | | | | [...] | | | care | | | Slice Plug Cutter Operator Helper-C | | | | | | [...] | | | care | | | Slice Plug Cutter Operator Helper-C | | | | | | [...] | | | care | | | Slice Plug Cutter Operator Helper-C | | | | | | | linical | + +--------+ +---+-----+ + + + | Note: Pt will | | check CBG's daily x1 | | Pt will take Lantis as | | prescribed | + + documented as of this encounter Visit Diagnoses + + | Diagnosis | + + | Acute renal failure, unspecified acute renal failure type (HCC) - Primary | + + | Bilateral impacted cerumen Impacted cerumen | + + | Acute anterior epistaxis | + + documented in this encounter
--- OUTSIDE RECORDS SUMMARY | ~2019-02-17 | XMS | Encounter Summary ---
Demographics + + + | Address | [address] | | | [place] [address] | + + + | Home Phone [...] Team Providers + +------+ + | Care Learning Support Aide Name | Role | Phone | + +------+ + | Ryan Gutiérrez MD | PCP | | + +------+ + Encounter Details +--------+ + + + + | Date | Type | Department | Care Team | Description | +--------+ + + + + | 10/13/ | Hospital | [facility] | Macario Sibley | | | 2014 | Encounter | [facility] | [address] | | | | [address] | [address] | | | | | [address] [place], [place] | [place] [address] | | | | | [address] | [phone] | | | | | [phone] | | | +--------+ + + + [...] [place] | | | | | | [address] | | | | | | [phone] | | | | | | | | +--------+---------+ + + + | 02/26/ | Office | Urology | Lillie Fowler | | | 2018 | Visit | | LILLIE Lopez [address] | | | | | | [address] | | | | | | [place] | | | | | | [address] | | | | | | [phone] | | | | | | | | +--------+---------+ + + + | 03/16/ | Office | Neurology | Theresa, | | | 2018 | Visit | | [address] | | | | | | [address] [place], | | | | | | [place] [address] | | | | | | [phone] | | | | | | | [...] [place] | | | | | | [address] | | | | | | | [...] | | | care | | | [employer] W[employer] Officer-C | | | | | | [...] | | | care | | | [employer] W[employer] Officer-C | | | | | | [...] | | | care | | | [employer] W[employer] Officer-C | | | | | | [...] | | | care | | | [employer] W[employer] Officer-C | | | | | | [...] + | POC GLUCOSE, | Routin | 10/13/2013 | | Results for this | | RAPIDPOINT | e | 6:34 PM | | procedure are in the | | | | PDT | | results section. | + +--------+ + + + | TROPONIN I | STAT | 10/13/2013 | | Results for this | | | | 2:35 PM | | procedure are in the | | | | PDT | | results section. | + +--------+ + + + | CBC W/AUTO | Routin | 10/13/2013 | | Results for this | | DIFFERENTIAL | e | 2:34 PM | | procedure are in the | | | | PDT | | results section. | + +--------+ + + + | TSH | Routin | 10/13/2013 | | Results for this | | | e | 2:34 PM | | procedure are in the | | | | PDT | | results section. | + +--------+ + + + | T4, FREE | Routin | 10/13/2013 | | Results for this | | | e | 2:34 PM | | procedure are in the | | | | PDT | | results section. | + +--------+ + + + | BASIC METABOLIC | Routin | 10/13/2013 | | Results for this | | PANEL | e | 2:34 PM | | procedure are in the | | | | PDT | | results section. | + +--------+ + + + documented in this encounter Results POC Glucose, Rapidpoint (10/13/2013 6:34 PM PDT) + +-------+ + + + | Component | Value | Ref Range | Performed | Pathologist | | | | | At | Signature | + +-------+ + + + | Glucose, | 96 | 70 - 110 mg/dL | EXTERNAL [...] + +---------+ + + Troponin I (10/13/2013 2:35 PM PDT) + +-------+ + + + [...] | + +---------+ + + T4, Free (10/13/2013 2:34 PM PDT) + +-------+ + + + | Component | Value | Ref Range | Performed | Pathologist | | | | | At | Signature | + +-------+ + + + | FT4 | 2.04 | 0.67 - 1.51 | EXTERNAL | [...] | | + +---------+ + + TSH (10/13/2013 2:34 PM PDT) + +-------+ + + + | Component | Value | Ref Range | Performed | Pathologist | | | | | At | Signature | + +-------+ + + + | TSH | 0.01 | 0.40 - 4.68 | EXTERNAL | [...] + +---------+ + + Basic Metabolic Panel (10/13/2013 2:34 PM PDT) + +-------+ + + + [...] 107 | 95 - 108 mmol/L | EXTERNAL [...] +-------+ + + + | Calcium | 9.4 | 8.3 - 10.0 | EXTERNAL | | | | | mg/dL | LAB | | + +-------+ + + + | Glucose | 121 | 70 - 110 mg/dL | EXTERNAL | | | | | | LAB | | + +-------+ + + + | BUN, Bld | 23 | 5 - 26 mg/dL | EXTERNAL | | | | | | LAB | | + +-------+ + + + | Creatinine | 1.3 | 0.7 - 1.4 mg/dL | EXTERNAL | | | | | | LAB | | + +-------+ + + + | BUN/Creatin | 17.7 | 7.0 - 24.0 | EXTERNAL | | | ine Ratio | | RATIO | LAB | | + +-------+ + + + | GFR | 57 | >=60 | EXTERNAL | | | [...] + + CBC w/ Auto Differential (10/13/2013 2:34 PM PDT) + +-------+ + + + | Component | Value | Ref Range | Performed | Pathologist | | | | | At | Signature | + +-------+ + + + | WBC | 12.2 | 4.6 - 10.5 | EXTERNAL | | | | | 1000/mm3 | LAB | | + +-------+ + + + | RBC | 4.72 | 4.36 - 5.83 | EXTERNAL | | | | | mil/mm3 | LAB | | + +-------+ + + + | HGB, | 13.9 | 13.1 - 17.4 | EXTERNAL | | | External | | g/dL | LAB | | + +-------+ + + + | HCT, | 42.2 | 39.0 - 51.9 % | EXTERNAL | | | External | | | LAB | | + +-------+ + + + | MCV | 89 | 82 - 96 fl | EXTERNAL | | | | | | LAB | | + +-------+ + + + | MCH | 29.4 | 27.7 - 32.3 pg | EXTERNAL | | | | | | LAB | | + +-------+ + + + | MCHC | 32.9 | 32.0 - 36.9 | EXTERNAL | | | | | g/dL | LAB | | + +-------+ + + + | RDW-CV | 14 | <=17.0 % | EXTERNAL | | | | | | LAB | | + +-------+ + + + | RDW-SD | 44 | 34.0 - 57.0 fL | EXTERNAL | | | | | | LAB | | + +-------+ + + + | Platelet | 193 | 150 - 450 | EXTERNAL | | | Count | | 1000/mm3 | LAB | | | Plasma | | | | | + +-------+ + + + | MPV | 11 | 9.4 - 12.4 FL | EXTERNAL | | | | | | LAB | | + +-------+ + + + | % Segmented | 72 | 42 - 76 % | EXTERNAL | | | | | | LAB | | | Neutrophils | | | | | + +-------+ + + + | % | 16 | 29 - 49 % | EXTERNAL | | | Lymphocytes | | | LAB | | + +-------+ + + + | % Monocytes | 11 | 3 - 13 % | EXTERNAL | | | | | | LAB | | + +-------+ + + + | % | 1 | 0 - 7 % | EXTERNAL | | | Eosinophils | | | LAB | | + +-------+ + + + | % Basophils | 0 | 0 - 2 % | EXTERNAL | | | | | | LAB | | + +-------+ + + + | Absolute | 8.83 | 2.80 - 7.70 | EXTERNAL | | | Neutrophils | | 1000/mm3 | LAB | | + +-------+ + + + | Absolute | 1.9 | 1.20 - 3.30 | EXTERNAL | | | Lymphocytes | | 1000/mm3 | LAB | | + +-------+ + + + | Absolute | 1.29 | 0.00 - 0.80 | EXTERNAL | | | Monocytes | | 1000/mm3 | LAB | | + +-------+ + + + | Absolute | 0.15 | 0.00 - 0.70 | EXTERNAL | | | Eosinophils | | 1000/mm3 | LAB | | + +-------+ + + + | Absolute | 0.02 [...]
--- OUTSIDE RECORDS SUMMARY | ~2019-02-17 | XMS | Encounter Summary ---
Demographics + + + | Address | [address] | | | [place] [address] | + + + | Home Phone [...] Team Providers + +------+ + | Care Stone Planer Name | Role | Phone | + [...] | | | DR [address] [place], | [facility], [place] | | | | | [place] [address] | [address] | | | | | [phone] | [phone] | | | | | | | [...] [place] | | | | | | [address] | | | | | | [phone] | | | | | | | | +--------+---------+ + + + | 02/26/ | Office | Urology | Lillie Fowler | | | 2018 | Visit | | [address] | | | | | | [address] | | | | | | [place] | | | | | | [address] | | | | | | [phone] | | | | | | | | +--------+---------+ + + + | 03/16/ | Office | Neurology | Theresa, | | | 2018 | Visit | | [address] | | | | | [address] [place], | | | | | | [place] [address] | | | | | | [phone] | | | | | | | | +--------+---------+ + + + | 04/12/ | Office | Primary Care | Massimo Ramos | | | 2019 | Visit | | MD [address] | | | | | | [place] | | | | | | [address] | | | | | | | | +--------+---------+ + + + | 10/03/ | Office | Neurology | Fabián Carias MD | | | 2019 | Visit | | [address] | | | | | | [place] | | | | | | [address] | | | | | | | [...] | | care | | | Field Coordinator-C | | | | | | [...] | | care | | | Field Coordinator-C | | | | | | [...] | | care | | | Field Coordinator-C | | | | | | [...] | | care | | | Field Coordinator-C | | | | | | | linical | + +--------+ +---+-----+ + + + | Note: Pt will | | check CBG's daily x1 | | Pt will take Lantis as | | prescribed | + + documented as of this encounter Visit Diagnoses Not on filedocumented in this encounter"
--- OUTSIDE RECORDS SUMMARY | ~2019-02-17 | XMS | Encounter Summary ---
Demographics + + + | Address | [address] | | | [place] [address] | + + + | Home Phone [...] Team Providers + +------+ + | Care Best Worker Name | Role | Phone | + +------+ + | Ryan Gutiérrez MD | PCP | | + +------+ + Encounter Details +--------+ + + + + | Date | Type | Department | Care Team | Description | +--------+ + + + + | 11/26/ | Hospital | [facility] | Horacio Silvestre, | | | 2016 | Encounter | [facility] | DO [address] [place] | | | | | [facility] [address] | [place], [place] | | | | | [address] [facility], | [address] | | | | | [place] [address] | [phone] | | | | | [phone] | | | +--------+ + + + [...] [place] | | | | | | [address] | | | | | | [phone] | | | | | | | | +--------+---------+ + + + | 02/26/ | Office | Urology | Lillie Fowler | | | 2018 | Visit | | [address] | | | | | | [address] | | | | | | [place] | | | | | | [address] | | | | | | [phone] | | | | | | | | +--------+---------+ + + + | 03/16/ | Office | Neurology | Theresa, | | | 2018 | Visit | | [address] | | | | | [address] [place], | | | | | | [place] [address] | | | | | | [phone] | | | | | | | | +--------+---------+ + + + | 04/12/ | Office | Primary Care | Massimo Ramos | | | 2019 | Visit | | MD [address] | | | | | | [place] | | | | | | [address] | | | | | | | | +--------+---------+ + + + | 10/03/ | Office | Neurology | Fabián Carias MD | | | 2019 | Visit | | [address] | | | | | | [place] | | | | | | [address] | | | | | | | [...] care | | | Associate Professor Of Chemistry-C | | | | | | | [...] care | | | Associate Professor Of Chemistry-C | | | | | | | [...] care | | | Associate Professor Of Chemistry-C | | | | | | | [...] care | | | Associate Professor Of Chemistry-C | | | | | | | linical | + +--------+ +---+-----+ + + + | Note: Pt will | | check CBG's daily x1 | | Pt will take Lantis as | | prescribed | + + documented as of this encounter Visit Diagnoses Not on filedocumented in this encounter"
--- OUTSIDE RECORDS SUMMARY | ~2019-02-17 | XMS | Encounter Summary ---
Demographics + + + | Address | [address] | | | [place] [address] | + + + | Home Phone [...] Team Providers + +------+ + | Care Aix Administrator Name | Role | Phone | [...] Medication Refill; | | 2017 | | [facility] | [address] | Medication Refill | | | | [facility] [address] | [facility], [place] | | | | | [address] [place], | [address] | | | | | [place] [address] | [phone] | | | | | [phone] | | | +--------+--------+ + + + [...] [place] | | | | | | [address] | | | | | | [phone] | | | | | | | | +--------+---------+ + + + | 02/26/ | Office | Urology | Lillie Fowler | | | 2018 | Visit | | [address] | | | | | | [address] | | | | | | [place], [place] | | | | | | [address] | | | | | | [phone] | | | | | | | | +--------+---------+ + + + | 03/16/ | Office | Neurology | Theresa, | | | 2018 | Visit | | [address] | | | | | | [address] [place], | | | | | | [place] [address] | | | | | | [phone] | | | | | | | | +--------+---------+ + + + | 04/12/ | Office | Primary Care | Massimo Ramos | | | 2019 | Visit | | MD [address] | | | | | | [place] | | | | | | [address] | | | | | | | | +--------+---------+ + + + | 10/03/ | Office | Neurology | Fabián Carias MD | | | 2019 | Visit | | [address] | | | | | | [place] | | | | | | [address] | | | | | | | [...] | | | care | | | Bobbin Coil Winder-C | | | | | | | [...] | | | care | | | Bobbin Coil Winder-C | | | | | | | [...] | | | care | | | Bobbin Coil Winder-C | | | | | | | [...] | | | care | | | Bobbin Coil Winder-C | | | | | | | [...] | 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
--- OUTSIDE RECORDS SUMMARY | ~2019-02-17 | XMS | Encounter Summary ---
Demographics + + + | Address | [address] | | | [place] [address] | + + + | Home Phone [...] Team Providers + +------+ + | Care Refrigeration Mechanic Helper Name | Role | Phone | + +------+ + | Horacio Silvestre DO | PCP | | + +------+ + Reason for Visit + + + | Reason | Comments | + + + | Medication Refill | PT CAME IN PERSON | + + + Encounter Details +--------+--------+ + + + | Date | Type | Department | Care Team | Description | +--------+--------+ + + + | 09/15/ | Refill | [facility] | Horacio Silvestre, | Medication Refill | | 2017 | | [facility] | DO [address] | (PT CAME IN PERSON ) | | | | [facility] [address] | [facility], [place] | | | | | [address] [place], | [address] | | | | | [place] [address] | [phone] | | | | | [phone] | | | +--------+--------+ + + + [...] [place] | | | | | | [address] | | | | | | [phone] | | | | | | | | +--------+---------+ + + + | 02/26/ | Office | Urology | Lillie Fowler | | | 2018 | Visit | | [address] | | | | | | [address] | | | | | | [place], [place] | | | | | | [address] | | | | | | [phone] | | | | | | | | +--------+---------+ + + + | 03/16/ | Office | Neurology | Theresa, | | | 2018 | Visit | | [address] | | | | | | [address] [place], | | | | | | [place] [address] | | | | | | [phone] | | | | | | | | +--------+---------+ + + + | 04/12/ | Office | Primary Care | Massimo Ramos | | | 2019 | Visit | | MD [address] | | | | | | [place] | | | | | | [address] | | | | | | | | +--------+---------+ + + + | 10/03/ | Office | Neurology | Fabián Carias MD | | | 2019 | Visit | | [address] | | | | | | [place] | | | | | | [address] | | | | | | | [...] | | | care | | | Profiling Machine Setup Operator-C | | | | | [...] | | | care | | | Profiling Machine Setup Operator-C | | | | | [...] | | | care | | | Profiling Machine Setup Operator-C | | | | | [...] | | | care | | | Profiling Machine Setup Operator-C | | | | | | | linical | + +--------+ +---+-----+ + + + | Note: Pt will | | check CBG's daily x1 | | Pt will take Lantis as | | prescribed | + + documented as of this encounter Visit Diagnoses Not on filedocumented in this encounter"
--- OUTSIDE RECORDS SUMMARY | ~2019-02-17 | XMS | Encounter Summary ---
Demographics + + + | Address | [address] | | | [place] [address] | + + + | Home Phone [...] Team Providers + +------+ + | Care Platform Inspector Name | Role | Phone | [...] | | | | | Cervical | Jalyn R, | [address] | | | | | radiculopath | [address] | | | | | y Neck | [address] , | [place], [place] | | | | | pain, | [place] | [address] | | | | | bilateral | [place], [place] | Phone: | | | | | Procedures | [phone] | [phone] | | | | | MRI Cervical | Phone: | Fax: | | | | | Spine wo | [phone] | [phone] | | | | | Contrast | Fax: | | | | | | | [phone] | | +--------+--------+ + + + + [...] | | | | Chronic low | Jalyn Panda, | [address] | | | | | back pain | [address] | | | | | without | [address] , | [place], [place] | | | | | sciatica, | [place] | [address] | | | | | unspecified | [place], [place] | Phone: | | | | | back pain | [address] | [phone] | | | | | laterality | Phone: | Fax: | | | | | Procedures | [phone] | [phone] | | | | | MRI Lumbar | Fax: | | | | | | Spine wo | [phone] | | | | | | Contrast | | | +--------+--------+ + + + + Reason for Visit + + + | Reason | Comments | + + + | Memory Loss | | + + + | Carpal Tunnel | | + + + Encounter Details +--------+---------+ + + + | Date | Type | Department | Care Team | Description | +--------+---------+ + + + | 12/15/ | Office | [facility] [facility] | Jalyn Carias MD | Type 2 diabetes | | 2018 | Visit | [facility] | [address] [place] | mellitus with | | | | CLINIC [address] | [place], [place] | diabetic | | | | [address] [place], | [address] | polyneuropathy, with | | | | [place] [address] | | long-term current | | | | [phone] | | use of insulin (HCC) | | | | | | (Primary Dx); Left | | | | | | shoulder pain, | | | | | | unspecified | | | | | | chronicity; | | | | | | Multilevel | | | | | | degenerative disc | | | | | | disease; care home | | | | | | current use of | | | | | | opiate analgesic; | | | | | | Primary | | | | | | osteoarthritis | | | | | | involving multiple | | | | | | joints; Chronic low | | | | | | back pain without | | | | | | sciatica, | | | | | | unspecified back | | | | | | pain laterality; | | | | | | Sprain of ligaments | | | | | | of lumbar spine, | | | | | | sequela ; Cervical | | | | | | radiculopathy; Neck | | | | | | pain, bilateral; | | | | | | Type 2 diabetes | | | | | | mellitus with | | | | | | diabetic | | | | | | polyneuropathy, with | | | | | | long-term current | | | | | | use of insulin | | | | | | (HCC); Chronic | | | | | | bilateral low back | | | | | | pain with bilateral | | | | | | sciatica | +--------+---------+ + + + Social History [...] + + + | Blood Pressure | 140/78 | 12/15/2017 10:39 AM | | | | | PDT | | + + + + + | Pulse | 67 | 12/15/2017 10:39 AM | | | | | PDT | | + + + + + | Temperature | - | - | | + + + + + | Respiratory Rate | 20 | 12/15/2017 10:39 AM | | | | | PDT | | + + + + + | Oxygen Saturation | 90% | 12/15/2017 10:39 AM | | | | | PDT | | + + + + + | Inhaled Oxygen | - | - | | | Concentration | | | | + + + + + | Weight | 93.4 kg (206 lb) | 12/15/2017 10:39 AM | | | | | PDT | | + + + + + | Height | 167.6 cm (5' 6") | 12/15/2017 10:39 AM | | | | | PDT | | + + + + + | Body Mass Index | 33.25 | 12/15/2017 10:39 AM | | | | | PDT [...] Instructions Patient Instructions Jalyn Carias MD - 12/15/2017 11:00 AM PDTFormatting of this note mi ght be different from the original. Patient Instructions [facility] Neurology Clinic Dr. Jalyn Carias, Neurologist Date:12/15/2017 Name:Geraldo Mcfadden :..1940 Please schedule next follow up appt with Hank in 3 months for chronic pain syndrome Cervical and lumbosacral spine strain with radiculopathy, as a result of multilevel degener ative spine disease Diabetic polyneuropathy Gait disorder S/P Left shoulder injury You have the following tests/procedures ordered: Orders Placed This Encounter Procedures Trigger Point Injection Procedure XR Shoulder Left 2 + Vw MRI Lumbar Spine wo Contrast MRI Cervical Spine wo Contrast Treatment Option- massage, Acupuncture, Over the counter heat patches (icy hot, thermacare, salonpas) , over the counter creams (aspercream, bengay cream, emu oi l), Relaxation therapy, Water therapy, Cortisone shots, Toradol Injections Suggest reading newspapers. magazines, perform word find exercises such as cross word puzz le, and scrabble, other puzzle games like [employer], [employer]ng. Play computer/mobile applications such as [employer] and [employer] Discussed Anodyne therapy/Light therapy Any Questions please call JAMAAL Marroquin or Dr. Carias at [facility] Neurology Clinic General Neck and Back [...] are taking other medicines. You may use ldcr-gmp-zdqaumo medicine to control pain, unless another pain [...] by your healthcare provider Date Last Reviewed: 10/06/201519991331-9743 [employer]. [address] [place] [address], [place] [address]. All righ ts reserved. This information is [...] use ice several times a day. ?Medicines Jvyl-nke-lytchff pain relievers can includeacetaminophen and anti-inflammatory medicines, [...] a heating p ad. Date Last Reviewed: 12/06/201419994795-7874 [employer]. [address] [place] [address], [place] [address]. All righ ts reserved. This information is [...] and need help quitting, talk to your althcare team. Testing your blood sugar is the [...] cut down on salt. A dietitian or community educator can help form a meal plan [...] lab tests as scheduled. Date Last Reviewed: 08/24/201519998679-1539 [employer]. [address] [place] [address], [place] [address]. All righ ts reserved. This information is not intended as a substitute for professional medical care. Always follow your healthcare professional's instructions. Peripheral Neuropathy Peripheral neuropathy is the result of damage to the peripheral nerves. It usually affects the arms or legs, and causes a change in physical feeling. Sometimes it causes weakness in t he muscles. You may feel tingling, numbness or shooting pains. Symptoms may be more common a t night. Skin may be extra sensitive to light touch or temperature changes. Neuropathy may be caused by a complication of a chronic disease such as diabetes, virus or bacterial infections, or physical injury. A ruptured disk with pressure on the spinal nerve may also lead to the problem. Certain vitamin deficiencies may also lead to it. It may also be caused by exposure to certain drugs or chemicals. Home care Tell the healthcare provider about all medicines you take. This includes prescription an d hqey-wym-osrzhpx medicines, vitamins, and herbs. Ask if any of the medicines may be causin g your problems. Don't make any changes to prescription medicines without talking to your [facility] provider first. You may be prescribed medicines to help relieve the tingling feeling or for pain. Take a ll medicines as directed. A numb hand or foot may be more prone to injury. To help protect it: Always use oven mitts. Test water with an unaffected hand or foot. Use caution when trimming nails. File sharp areas. Wear shoes that fit well to avoid pressure points, blisters, and ulcers. Inspect your hands and feet carefully (including the soles of your feet and between your toes) at least once a week. If you see red areas, sores, or other problems, tell your healt hcare provider. Follow-up care Follow up with your doctor or as advised by our staff. You may need further testing or eval uation. When to seek medical advice Call your healthcare provider right away if any of the following occur: Redness, swelling, cracking, or ulcer on any numb area, especially the feet New symptoms of numbness or muscle weakness numbness Loss of bowel or bladder control Slurred speech, confusion, or trouble speaking, walking, or seeing Date Last Reviewed: 06/05/201719993307-8080 [employer]. [address] [place] [address], [place] [address]. All righ ts reserved. This information is [...] massage, and other methods. Date Last Reviewed: 04/07/201719998555-4700 [employer]. [address] [place] [address]. All [facility] ts reserved. This information is not [...] acupuncture, massage, and others. Date Last Reviewed: 03/07/201719999264-8565 [employer]. [address] [place] [address], [place] [address]. All righ ts reserved. This information is not intended as a substitute for professional medical care. Always follow your healthcare professional's instructions. documented in this encounter Plan of Treatment [...] [place] | | | | | | [address] | | | | | | [phone] | | | | | | | | +--------+---------+ + + + | 02/26/ | Office | Urology | Lillie Fowler | | | 2018 | Visit | | LILLIE Lopez [address] | | | | | | [address] | | | | | | [place], [place] | | | | | | [address] | | | | | | [phone] | | | | | | | | +--------+---------+ + + + | 03/16/ | Office | Neurology | Theresa, | | | 2018 | Visit | | SHONDA [address] | | | | | [address] [place], | | | | | | [place] [address] | | | | | | [phone] | | | | | | | | +--------+---------+ + + + | 04/12/ | Office | Primary Care | Massimo Raoms Pedro Luis | | | 2019 | Visit | | MD Fer [address] | | | | | | [place] | | | | | | [address] | | | | | | | | +--------+---------+ + + + | 10/03/ | Office | Neurology | Jalyn Carias MD | | | 2019 | Visit | | [address] | | | | | | [place] | | | | | | [address] | | | | | | | [...] | | | care | | | Raw Silk Grader-C | | | | | | | evelin | + +--------+ + + + + [...] | | | care | | | Raw Silk Grader-C | | | | | | | [...] Lifest | Coordinatio | | Yes | Drejanes, | | Medication | yle | n of | | | Charline M, | | | | complex | | | Case | | | | care | | | Raw Silk Grader-C | | | | | | | [...] | | | care | | | Raw Silk Grader-C | | | | | | | linical | + +--------+ +---+-----+ + + + | Note: Pt will | | check CBG's daily x1 | | Pt will take Lantis as | | prescribed | + + documented as of this encounter Results Trigger Point Injection Procedure (02/19/2018 9:45 AM PST) + + + | Narrative | Performed At | + + + | Jalyn Carias MD 02/19/2018 10:20 Geraldo Mcfadden is a 77 | | | y.o. male right handed seen for neurologic evaluation with | | | history of chronic , persistent low back pain with acute | | | exacerbation with prominent spasms and pain. he received a | | | trigger point injection today in the bilateral paraspinal L5/S1 and | | | paraspinal L3/4 muscles. He initially received Lidocaine 1 % and | | | once tolerated, given a combination of Marcaine 5 % and Depomedrol. | | | A total of depomedrol 10 ml, 40 mg/ml were injected. he did | | | not experience palpitations, diaphoresis, chest pain, or near | | | syncopal symptoms. It is medically necessary he receives another | | | trigger point injection in 4-5 months if his symptoms recur to | | | improve her quality of life and activities of daily living. he | | | was advised to place a warm compress in the injected areas , 20 mins | | | on and 20 mins off, for a couple of hours, 2-3 times a day. | | | Toradol 60 mg IM was given for intractable low back pain, pain scale | | | 7-8/10 I advised the patient to call for any side effects or | | | questions. Thank you for allowing us in participating in the care | | | of your patient. Sincerely, JALYN CARIAS M.D. | | | Neurologist [phone] Electronically signed NOTE: Part of | | | this report was transcribed using voice recognition | | | software. Every effort was made to ensure | | | accuracy. However, inadvertent computerize | | | processing analyst errors may be present | | + + + MRI Lumbar Spine wo Contrast (01/30/2018 10:04 [...] is recommended. Dictated by: Massimo Hughes | Saul Alba | | | 11:17 AM | | [...] FINDINGS: There are 5 | | | dsw-cvy-igykwvj lumbar vertebral bodies. There is straightening of [...] | Adithya Mcneill Results In - 01/30/2018 11:21 AM PDT EXAMINATION:MRI LUMBAR SPINE WO | | CONTRASTHISTORY:persistent low back pain with radiculopathyCOMPARISON STUDY:December | | 21, 2016TECHNIQUE:Multiplanar multi sequence MRI of the lumbar spine was performed | | without contrast.FINDINGS:There are 5 hps-qax-kttgevj lumbar vertebral bodies.There is | | straightening [...] | | + +---------+ + + MRI Cervical Spine wo Contrast (01/30/2018 10:04 [...] | Osito, Rad Results In - 01/30/2018 10:43 AM PDT [...] November 08 | | 2016Dictated by: Massimo Hutchinsonam | | 10:39 AM | | | [...] | | + +---------+ + + XR Shoulder Left 2 + Vw (12/15/2017 11:53 AM PDT) + + | Specimen | + + | | + + + + + | Impressions | Performed At | + + + | IMPRESSION: 1. No acute process 2. Mild degenerative change. | [facility] | | Dictated by: Massimo Alba | | + + + + + + | Narrative | Performed At | + + + | EXAMINATION: XR SHOULDER LEFT 2 + VW HISTORY: left shoulder | [facility] | | pain COMPARISON STUDY: None FINDINGS: The acromioclavicular | | | joint has mild hypertrophic change. The glenohumeral joint is intact. | | | Minimal productive change of the inferior glenoid. No glenohumeral | | | subluxation or dislocation. Normal bone density. Visualized thorax | | | and ribs are unremarkable. | | + + + + + | Procedure Note | + + | Adithya Mcneill Results In 12/15/2017 12:07 PM PDT EXAMINATION: | | XR SHOULDER LEFT 2 + VW | | | | HISTORY: | | left shoulder pain | | | | COMPARISON STUDY: | | None | | | | FINDINGS: | | The acromioclavicular joint has mild hypertrophic change. | | The glenohumeral joint is intact. Minimal productive change of the inferior glenoid. | | No glenohumeral subluxation or dislocation. | | Normal bone density. | | Visualized thorax and ribs are unremarkable. | | | | | | IMPRESSION: | | IMPRESSION: | | 1. No acute process | | 2. Mild degenerative change. | | | | Dictated by: Massimo [...] (HCC) - Primary | + + | Left shoulder pain, unspecified chronicity | + + | Multilevel degenerative disc disease Degeneration of intervertebral disc, site | | unspecified | + + | care home current use of opiate analgesic Encounter for long-term (current) use of | | other medications | + + | Primary osteoarthritis involving multiple joints | + + | Chronic low back pain without sciatica, unspecified back pain laterality | + + | Sprain of ligaments of lumbar spine, sequela | + + | Cervical radiculopathy Brachial neuritis or radiculitis nos | + + | Neck pain, bilateral Cervicalgia | + + documented in this encounter
--- OUTSIDE RECORDS SUMMARY | ~2019-02-17 | XMS | Encounter Summary ---
Demographics + + + | Address | [address] | | | [place] [address] | + + + | Home Phone [...] Team Providers + +------+ + | Care Grain Mixer Name | Role | Phone | + +------+ + PCP | Unavailable | + +------+ + Encounter Details +--------+ + + + + | Date | Type | Department | Care Team | Description | +--------+ + + + + | 03/10/ | Hospital | [facility] | | | 2010 | Encounter | [facility] | MD Artie Downs | | | | | CENTER [address] | [place], | | | | | [place], [place] | [place] [address] | | | | | [address] | [phone] | | | | | [phone] | | | +--------+ + + + [...] d call it a normal Holter monitor. [facility] Signed and Approved by: HARJEET FUNES [...] [place] | | | | | | [address] | | | | | | [phone] | | | | | | | | +--------+---------+ + + + | 02/26/ | Office | Urology | Lillie Fowler | | | 2018 | Visit | | LILLIE Lopez [address] | | | | | | [address] | | | | | | [place], [place] | | | | | | [address] | | | | | | [phone] | | | | | | | | +--------+---------+ + + + | 03/16/ | Office | Neurology | Theresa, | | | 2018 | Visit | | [address] | | | | | [address] [place], | | | | | | [place] [address] | | | | | | [phone] | | | | | | | [...] [place] | | | | | | [address] | | | | | | | [...] | | care | | | Special Deputy Sheriff-C | | | | | | | [...] | | care | | | Special Deputy Sheriff-C | | | | | | | [...] | | care | | | Special Deputy Sheriff-C | | | | | | | [...] | | care | | | Special Deputy Sheriff-C | | | | | | | linical | + +--------+ +---+-----+ + + + | Note: Pt will | | check CBG's daily x1 | | Pt will take Lantis as | | prescribed | + + documented as of this encounter Visit Diagnoses Not on filedocumented in this encounter"
--- OUTSIDE RECORDS SUMMARY | ~2019-02-17 | XMS | Encounter Summary ---
Demographics + + + | Address | [address] | | | [place] [address] | + + + | Home Phone [...] Team Providers + +------+ + | Care Music Department Chair Name | Role | Phone [...] | | | | | [address] [place], | [address] | | | | | [place] [address] | [phone] | | | | | [phone] | | | +--------+ + + + [...] [place] | | | | | | [address] | | | | | | [phone] | | | | | | | | +--------+---------+ + + + | 02/26/ | Office | Urology | Lillie Fowler | | | 2018 | Visit | | LILLIE Lopez [address] | | | | | | [address] | | | | | | [place], [place] | | | | | | [address] | | | | | | [phone] | | | | | | | | +--------+---------+ + + + | 03/16/ | Office | Neurology | Theresa, | | | 2018 | Visit | | SHONDA M[address] | | | | | | [address] [place], | | | | | | [place] [address] | | | | | | [phone] | | | | | | | | +--------+---------+ + + + | 04/12/ | Office | Primary Care | Massimo Ramos | | | 2019 | Visit | | MD Fer [address] | | | | | | [place] | | | | | | [address] | | | | | | | | +--------+---------+ + + + | 10/03/ | Office | Neurology | Fabián Carias MD | | | 2019 | Visit | | [address] | | | | | | [place] | | | | | | [address] | | | | | | | [...] | | | care | | | Catalogue Librarian-C | | | | | | | [...] | | | care | | | Catalogue Librarian-C | | | | | | | [...] | | | care | | | Catalogue Librarian-C | | | | | | | [...] | | | care | | | Catalogue Librarian-C | | | | | | | linical | + +--------+ +---+-----+ + + + | Note: Pt will | | check CBG's daily x1 | | Pt will take Lantis as | | prescribed | + + documented as of this encounter Visit Diagnoses Not on filedocumented in this encounter"
--- OUTSIDE RECORDS SUMMARY | ~2019-02-17 | XMS | Encounter Summary ---
Demographics + + + | Address | [address] | | | [place] [address] | + + + | Home Phone | | + + + | Preferred Language | Unknown | + + + | Marital Status | | + + + | Christian Affiliation | 1025 | + + + | Race | Unknown | + + + | Ethnic Group | Unknown | + + + Author + + + | Author | [facility] | | | and [place] | + + + | Organization | [facility] | | [...] Team Providers + +------+ + | Care Staffing Mgr Name | Role | Phone | + [...] | | | [facility] [address] | Lock Maintenance Supervisor-Clinical | | | | | [address] [facility], | | | | | | [place] [address] | | | | | | [phone] | | | +--------+ + + + [...] [place] | | | | | | [address] | | | | | | [phone] | | | | | | | | +--------+---------+ + + + | 02/26/ | Office | Urology | Lillie Fowler | | | 2018 | Visit | | LILLIE Lopez [address] | | | | | | [address] | | | | | | [place], [place] | | | | | | [address] | | | | | | [phone] | | | | | | | | +--------+---------+ + + + | 03/16/ | Office | Neurology | Theresa, | | | 2018 | Visit | | SHONDA M[address]ney [address] | | | | | | [address] [place], | | | | | | [place] [address] | | | | | | [phone] | | | | | | | | +--------+---------+ + + + | 04/12/ | Office | Primary Care | Massimo Ramos | | | 2019 | Visit | | MD Fer [address] | | | | | | [place] | | | | | | [address] | | | | | | | | +--------+---------+ + + + | 10/03/ | Office | Neurology | Fabián Carias MD | | | 2019 | Visit | | [address] | | | | | | [place] | | | | | | [address] | | | | | | | [...] | | | care | | | Lock Maintenance Supervisor-C | | | | | | [...] | | | care | | | Lock Maintenance Supervisor-C | | | | | | [...] | | | care | | | Lock Maintenance Supervisor-C | | | | | | [...] | | | care | | | Lock Maintenance Supervisor-C | | | | | | [...]
--- OUTSIDE RECORDS SUMMARY | ~2019-02-17 | XMS | Encounter Summary ---
Demographics + + + | Address | [address] | | | [place] [address] | + + + | Home Phone [...] Team Providers + +------+ + | Care Business Partner Name | Role | Phone | + +------+ + | Ryan Gutiérrez MD | PCP | | + +------+ + Encounter Details +--------+ + + + + | Date | Type | Department | Care Team | Description | +--------+ + + + + | 08/17/ | Hospital | [facility] | Scott De Oliveira | | | 2016 | Encounter | [facility] MED [facility]G | [address] | | | | | [address] [place] | [address] | | | | | [place] | [place] | | | | | [address] | [address] | | | | | [phone] | [phone] | | | | | | | [...] encounter Discharge Summaries Lisa Taylor MD - 08/18/2015 6:30 PM PDT DISCHARGE SUMMARY DATE OF ADMISSION: 08/18/2015 DATE OF DISCHARGE: 08/25/2015 A 75-year-old male admitted for history of acute diverticulitis. 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 Postoperative course was unremarkable except for developme nt of a wound infection which was taken care of by partial opening of the wound by Dr. De Oliveira the day prior to discharge. The wound was packed with Iodoform ga uze. The patient was planned for discharge to [facility] due to the fact that he lives in [facility] nd was still requiring antibiotics as well as some physical therapy, dressing changes, etc. On today at the time of discharge he is tolerating he repacking of the wound well. The J-P drain is removed due to minimal drainage. Plan is to have him be discharged to [facility]. Medication list and reconciliation is done prior to discharge. He is going to be given CIPROFLOXACIN 500 mg b.i.d., also is going to be kept o n his usual medications and is given OXYCODONE/ACETAMINOPHEN for pain. DISCHARGE DIAGNOSES: 1. Acute diverticulitis with perforation. 2. Postoperative wound infection. 3. History of hypertension. 4. Type 2 diabetes. 5. Hypercholesterolemia. 6. Neuropathy. [facility] Signed and Approved by: LISA TAYLOR MD 08/28/2015 15:59:00 documented in this encounter Medications at Time [...] [place] | | | | | | [address] | | | | | | [phone] | | | | | | | | +--------+---------+ + + + | 02/26/ | Office | Urology | Lillie Fowler | | | 2018 | Visit | | [address]IE [address] | | | | | | [address] | | | | | | [place], [place] | | | | | | [address] | | | | | | [phone] | | | | | | | | +--------+---------+ + + + | 03/16/ | Office | Neurology | Theresa, | | | 2019 | Visit | | [address] | | | | | [address] [place], | | | | | | [place] [address] | | | | | | [phone] | | | | | | | | +--------+---------+ + + + | 04/12/ | Office | Primary Care | Massimo Ramos | | | 2019 | Visit | | MD [address] | | | | | | [place] | | | | | | [address] | | | | | | | | +--------+---------+ + + + | 10/03/ | Office | Neurology | Fabián Carias MD | | | 2019 | Visit | | [address] | | | | | | [place] | | | | | | [address] | | | | | | | [...] | | care | | | Marketing Services Coordinator-C | | | | | | [...] | | care | | | Marketing Services Coordinator-C | | | | | | [...] | | care | | | Marketing Services Coordinator-C | | | | | | [...] | | care | | | Marketing Services Coordinator-C | | | | | | [...] + | POC GLUCOSE, | Routin | 08/25/2015 | | Results for this | | [facility] | e | 11:15 AM | | procedure are in the | | | | PDT | | results section. | + +--------+ + + + | POC GLUCOSE, | Routin | 08/25/2015 | | Results for this | | R[facility]IDPOINT | e | 7:27 AM | | procedure are in the | | | | PDT | | results section. | + +--------+ + + + | POC GLUCOSE, | Routin | 08/24/2015 | | Results for this | | RAPIDPOINT | e | 9:16 PM | | procedure are in the | | | | PDT | | results section. | + +--------+ + + + | POC GLUCOSE, | Routin | 08/24/2015 | | Results for this | | RAPIDPOINT | e | 4:33 PM | | procedure are in the | | | | PDT | | results section. | + +--------+ + + + | POC GLUCOSE, | Routin | 08/24/2015 | | Results for this | | RAPIDPOINT | e | 11:14 AM | | procedure are in the | | | | PDT | | results section. | + +--------+ + + + | POC GLUCOSE, | Routin | 08/24/2015 | | Results for this | | RAPIDPOINT | e | 7:50 AM | | procedure are in the | | | | PDT | | results section. | + +--------+ + + + | POC GLUCOSE, | Routin | 08/23/2015 | | Results for this | | RAPIDPOINT | e | 8:53 PM | | procedure are in the | | | | PDT | | results section. | + +--------+ + + + | POC GLUCOSE, | Routin | 08/23/2015 | | Results for this | | RAPIDPOINT | e | 3:59 PM | | procedure are in the | | | | PDT | | results section. | + +--------+ + + + | POC GLUCOSE, | Routin | 08/23/2015 | | Results for this | | RAPIDPOINT | e | 11:33 AM | | procedure are in the | | | | PDT | | results section. | + +--------+ + + + | POC GLUCOSE, | Routin | 08/23/2015 | | Results for this | | RAPIDPOINT | e | 6:22 AM | | procedure are in the | | | | PDT | | results section. | + +--------+ + + + | POC GLUCOSE, | Routin | 08/23/2015 | | Results for this | | RAPIDPOINT | e | 12:29 AM | | procedure are in the | | | | PDT | | results section. | + +--------+ + + + | POC GLUCOSE, | Routin | 08/22/2015 | | Results for this | | RAPIDPOINT | e | 5:59 PM | | procedure are in the | | | | PDT | | results section. | + +--------+ + + + | POC GLUCOSE, | Routin | 08/22/2015 | | Results for this | | RAPIDPOINT | e | 11:31 AM | | procedure are in the | | | | PDT | | results section. | + +--------+ + + + | POC GLUCOSE, | Routin | 08/22/2015 | | Results for this | | RAPIDPOINT | e | 6:14 AM | | procedure are in the | | | | PDT | | results section. | + +--------+ + + + | POC GLUCOSE, | Routin | 08/22/2015 | | Results for this | | RAPIDPOINT | e | 12:12 AM | | procedure are in the | | | | PDT | | results section. | + +--------+ + + + | POC GLUCOSE, | Routin | 08/21/2015 | | Results for this | | RAPIDPOINT | e | 5:59 PM | | procedure are in the | | | | PDT | | results section. | + +--------+ + + + | POC GLUCOSE, | Routin | 08/21/2015 | | Results for this | | RAPIDPOINT | e | 12:00 PM | | procedure are in the | | | | PDT | | results section. | + +--------+ + + + | POC GLUCOSE, | Routin | 08/21/2015 | | Results for this | | RAPIDPOINT | e | 6:01 AM | | procedure are in the | | | | PDT | | results section. | + +--------+ + + + | POC GLUCOSE, | Routin | 08/21/2015 | | Results for this | | RAPIDPOINT | e | 12:09 AM | | procedure are in the | | | | PDT | | results section. | + +--------+ + + + | POC GLUCOSE, | Routin | 08/20/2015 | | Results for this | | RAPIDPOINT | e | 6:03 PM | | procedure are in the | | | | PDT | | results section. | + +--------+ + + + | POC GLUCOSE, | Routin | 08/20/2015 | | Results for this | | RAPIDPOINT | e | 5:41 PM | | procedure are in the | | | | PDT | | results section. | + +--------+ + + + | POC GLUCOSE, | Routin | 08/20/2015 | | Results for this | | RAPIDPOINT | e | 11:25 AM | | procedure are in the | | | | PDT | | results section. | + +--------+ + + + | POC GLUCOSE, | Routin | 08/20/2015 | | Results for this | | RAPIDPOINT | e | 6:04 AM | | procedure are in the | | | | PDT | | results section. | + +--------+ + + + | POC GLUCOSE, | Routin | 08/20/2015 | | Results for this | | RAPIDPOINT | e | 12:51 AM | | procedure are in the | | | | PDT | | results section. | + +--------+ + + + | POC GLUCOSE, | Routin | 08/19/2015 | | Results for this | | RAPIDPOINT | e | 5:09 PM | | procedure are in the | | | | PDT | | results section. | + +--------+ + + + | POC GLUCOSE, | Routin | 08/19/2015 | | Results for this | | RAPIDPOINT | e | 11:40 AM | | procedure are in the | | | | PDT | | results section. | + +--------+ + + + | POC GLUCOSE, | Routin | 08/19/2015 | | Results for this | | RAPIDPOINT | e | 7:48 AM | | procedure are in the | | | | PDT | | results section. | + +--------+ + + + | POC GLUCOSE, | Routin | 08/19/2015 | | Results for this | | RAPIDPOINT | e | 6:39 AM | | procedure are in the | | | | PDT | | results section. | + +--------+ + + + | POC GLUCOSE, | Routin | 08/19/2015 | | Results for this | | RAPIDPOINT | e | 12:42 AM | | procedure are in the | | | | PDT | | results section. | + +--------+ + + + | POC GLUCOSE, | Routin | 08/18/2015 | | Results for this | | RAPIDPOINT | e | 9:04 PM | | procedure are in the | | | | PDT | | results section. | + +--------+ + + + | POC GLUCOSE, | Routin | 08/18/2015 | | Results for this | | RAPIDPOINT | e | 6:26 PM | | procedure are in the | | | | PDT | | results section. | + +--------+ + + + | HEMOGRAM WITH | Routin | 08/18/2015 | | Results for this | | PLATELETS | e | 5:00 AM | | procedure are in the | | | | PDT | | results section. | + +--------+ + + + | BASIC METABOLIC | Routin | 08/18/2015 | | Results for this | | PANEL | e | 5:00 AM | | procedure are in the | | | | PDT | | results section. | + +--------+ + + + documented in this encounter Results POC Glucose, [facility] (08/25/2015 11:15 AM PDT) + +-------+ + + + | Component | Value | Ref Range | Performed | Pathologist | | | | | At | Signature | + +-------+ + + + | Glucose, | 162 | 70 - 110 mg/dL | EXTERNAL [...] + +---------+ + + POC Glucose, [facility] (08/25/2015 7:27 AM PDT) + +-------+ + + + [...] + +---------+ + + POC Glucose, [facility] (08/24/2015 9:16 PM PDT) + +-------+ + + + | Component | Value | Ref Range | Performed | Pathologist | | | | | At | Signature | + +-------+ + + + | Glucose, | 174 | 70 - 110 mg/dL | EXTERNAL [...] + +---------+ + + POC Glucose, [facility] (08/24/2015 4:33 PM PDT) + +-------+ + + + | Component | Value | Ref Range | Performed | Pathologist | | | | | At | Signature | + +-------+ + + + | Glucose, | 185 | 70 - 110 mg/dL | EXTERNAL [...] + +---------+ + + POC Glucose, [facility] (08/24/2015 11:14 AM PDT) + +-------+ + + + | Component | Value | Ref Range | Performed | Pathologist | | | | | At | Signature | + +-------+ + + + | Glucose, | 155 | 70 - 110 mg/dL | EXTERNAL [...] + +---------+ + + POC Glucose, [facility] (08/24/2015 7:50 AM PDT) + +-------+ + + + | Component | Value | Ref Range | Performed | Pathologist | | | | | At | Signature | + +-------+ + + + | Glucose, | 148 | 70 - 110 mg/dL | EXTERNAL [...] + +---------+ + + POC Glucose, [facility] (08/23/2015 8:53 PM PDT) + +-------+ + + + [...] + +---------+ + + POC Glucose, [facility] (08/23/2015 3:59 PM PDT) + +-------+ + + + | Component | Value | Ref Range | Performed | Pathologist | | | | | At | Signature | + +-------+ + + + | Glucose, | 135 | 70 - 110 mg/dL | EXTERNAL [...] + +---------+ + + POC Glucose, [facility] (08/23/2015 11:33 AM PDT) + +-------+ + + + | Component | Value | Ref Range | Performed | Pathologist | | | | | At | Signature | + +-------+ + + + | Glucose, | 150 | 70 - 110 mg/dL [...] + +---------+ + + POC Glucose, [facility] (08/23/2015 6:22 AM PDT) + +-------+ + + + [...] + +---------+ + + POC Glucose, [facility] (08/23/2015 12:29 AM PDT) + +-------+ + + + [...] + +---------+ + + POC Glucose, [facility] (08/22/2015 5:59 PM PDT) + +-------+ + + + [...] + +---------+ + + POC Glucose, [facility] (08/22/2015 11:31 AM PDT) + +-------+ + + + | Component | Value | Ref Range | Performed | Pathologist | | | | | At | Signature | + +-------+ + + + | Glucose, | 149 | 70 - 110 mg/dL | EXTERNAL [...] + +---------+ + + POC Glucose, [facility] (08/22/2015 6:14 AM PDT) + +-------+ + + + | Component | Value | Ref Range | Performed | Pathologist | | | | | At | Signature | + +-------+ + + + | Glucose, | 132 | 70 - 110 mg/dL | EXTERNAL [...] + +---------+ + + POC Glucose, [facility] (08/22/2015 12:12 AM PDT) + +-------+ + + + | Component | Value | Ref Range | Performed | Pathologist | | | | | At | Signature | + +-------+ + + + | Glucose, | 123 | 70 - 110 mg/dL [...] + +---------+ + + POC Glucose, [facility] (08/21/2015 5:59 PM PDT) + +-------+ + + + | Component | Value | Ref Range | Performed | Pathologist | | | | | At | Signature | + +-------+ + + + | Glucose, | 135 | 70 - 110 mg/dL | EXTERNAL [...] + +---------+ + + POC Glucose, [facility] (08/21/2015 12:00 PM PDT) + +-------+ + + + | Component | Value | Ref Range | Performed | Pathologist | | | | | At | Signature | + +-------+ + + + | Glucose, | 160 | 70 - 110 mg/dL | EXTERNAL [...] + +---------+ + + POC Glucose, [facility] (08/21/2015 6:01 AM PDT) + +-------+ + + + [...] + +---------+ + + POC Glucose, [facility] (08/21/2015 12:09 AM PDT) + +-------+ + + + | Component | Value | Ref Range | Performed | Pathologist | | | | | At | Signature | + +-------+ + + + | Glucose, | 165 | 70 - 110 mg/dL [...] + +---------+ + + POC Glucose, [facility] (08/20/2015 6:03 PM PDT) + +-------+ + + + | Component | Value | Ref Range | Performed | Pathologist | | | | | At | Signature | + +-------+ + + + | Glucose, | 152 | 70 - 110 mg/dL | EXTERNAL [...] + +---------+ + + POC Glucose, [facility] (08/20/2015 5:41 PM PDT) + +-------+ + + + [...] + +---------+ + + POC Glucose, [facility] (08/20/2015 11:25 AM PDT) + +-------+ + + + | Component | Value | Ref Range | Performed | Pathologist | | | | | At | Signature | + +-------+ + + + | Glucose, | 163 | 70 - 110 mg/dL | EXTERNAL [...] + +---------+ + + POC Glucose, [facility] (08/20/2015 6:04 AM PDT) + +-------+ + + + | Component | Value | Ref Range | Performed | Pathologist | | | | | At | Signature | + +-------+ + + + | Glucose, | 132 | 70 - 110 mg/dL | EXTERNAL [...] + +---------+ + + POC Glucose, [facility] (08/20/2015 12:51 AM PDT) + +-------+ + + + | Component | Value | Ref Range | Performed | Pathologist | | | | | At | Signature | + +-------+ + + + | Glucose, | 144 | 70 - 110 mg/dL | EXTERNAL [...] + +---------+ + + POC Glucose, [facility] (08/19/2015 5:09 PM PDT) + +-------+ + + + | Component | Value | Ref Range | Performed | Pathologist | | | | | At | Signature | + +-------+ + + + | Glucose, | 132 | 70 - 110 mg/dL | EXTERNAL [...] + +---------+ + + POC Glucose, [facility] (08/19/2015 11:40 AM PDT) + +-------+ + + + [...] + +---------+ + + POC Glucose, [facility] (08/19/2015 7:48 AM PDT) + +-------+ + + + [...] + +---------+ + + POC Glucose, [facility] (08/19/2015 6:39 AM PDT) + +-------+ + + + | Component | Value | Ref Range | Performed | Pathologist | | | | | At | Signature | + +-------+ + + + | Glucose, | 128 | 70 - 110 mg/dL | EXTERNAL [...] + +---------+ + + POC Glucose, [facility] (08/19/2015 12:42 AM PDT) + +-------+ + + + [...] + +---------+ + + POC Glucose, [facility] (08/18/2015 9:04 PM PDT) + +-------+ + + + | Component | Value | Ref Range | Performed | Pathologist | | | | | At | Signature | + +-------+ + + + | Glucose, | 140 | 70 - 110 mg/dL [...] + +---------+ + + POC Glucose, [facility] (08/18/2015 6:26 PM PDT) + +-------+ + + + [...] + +---------+ + + Hemogram With Platelets (08/18/2015 5:00 AM PDT) + +-------+ + + + | Component | Value | Ref Range | Performed | Pathologist | | | | | At | Signature | + +-------+ + + + | WBC | 12.3 | 4.6 - 10.5 | EXTERNAL | | | | | 1000/mm3 | LAB | | + +-------+ + + + | RBC | 3.43 | 4.36 - 5.83 | EXTERNAL | | | | | mil/mm3 | LAB | | + +-------+ + + + | HGB, | 10.4 | 13.1 - 17.4 | EXTERNAL | | | External | | g/dL | LAB | | + +-------+ + + + | HCT, | 31.9 | 39.0 - 51.9 % | EXTERNAL | | | External | | | LAB | | + +-------+ + + + | MCV | 93 | 82 - 96 fl | EXTERNAL | | | | | | LAB | | + +-------+ + + + | MCH | 30.3 | 27.7 - 32.3 pg | EXTERNAL | | | | | | LAB | | + +-------+ + + + | MCHC | 32.6 | 32.0 - 36.9 | EXTERNAL | | | | | g/dL | LAB | | + +-------+ + + + | RDW-CV | 15.5 | <=17.0 % | EXTERNAL | | | | | | LAB | | + +-------+ + + + | Platelet | 254 | 150 - 450 | EXTERNAL | | | Count | | 1000/mm3 | LAB | | | Plasma | | | | | + +-------+ + + + | MPV | 9.8 | 9.4 - 12.4 FL | EXTERNAL | | | | | | LAB | | + +-------+ + + + | RDW-SD | 49.7 | 34.0 - 57.0 fL | EXTERNAL [...] + +---------+ + + Basic Metabolic Panel (08/18/2015 5:00 AM PDT) + +-------+ + + + | Component | Value | Ref Range | Performed | Pathologist | | | | | At | Signature | + +-------+ + + + | Sodium | 135 | 132 - 143 | EXTERNAL | | | | | mmol/L | LAB | | + +-------+ + + + | Potassium | 3.6 | 3.3 - 4.9 | EXTERNAL | [...] + | Anion Gap | 5 | 7 - 16 | EXTERNAL | | | | | | LAB | | + +-------+ + + + | Calcium | 7.6 | 8.3 - 10.0 | EXTERNAL | | | | | mg/dL | LAB | | + +-------+ + + + | Glucose | 120 | 70 - 110 mg/dL | EXTERNAL | | | | | | LAB | | + +-------+ + + + | BUN, Bld | 11 | 5 - 26 mg/dL | EXTERNAL | | | | | | LAB | | + +-------+ + + + | Creatinine | 0.87 | 0.70 - 1.40 | EXTERNAL | | | | | mg/dL | LAB | | + +-------+ + + + | BUN/Creatin | 12.6 | 7.0 - 24.0 | EXTERNAL | [...]
--- OUTSIDE RECORDS SUMMARY | ~2019-02-17 | XMS | Encounter Summary ---
Demographics + + + | Address | [address] | | | [place] [address] | + + + | Home Phone [...] Providers + +------+ + | Care Drill Press Set Up Operator Radial Name | Role | Phone | + [...] | +--------+ + + + + | 11/04/ | Telephone | [facility] | Fabián Carias MD | Medication Question | | 2019 | | [facility] | [address] | | | | | CLINIC [address] | [place] | | | | | [address] [place], | [address] | | | | | [place] [address] | | | | | | [phone] | | | +--------+ + + + [...] [place] | | | | | | [address] | | | | | | [phone] | | | | | | | | +--------+---------+ + + + | 02/26/ | Office | Urology | Lillie Fowler | | | 2018 | Visit | | [address]IE [address] | | | | | | [address] | | | | | | [place], [place] | | | | | | [address] | | | | | | [phone] | | | | | | | | +--------+---------+ + + + | 03/16/ | Office | Neurology | Theresa, | | | 2018 | Visit | | [address] | | | | | [address] [place], | | | | | | [place] [address] | | | | | | [phone] | | | | | | | | +--------+---------+ + + + | 04/12/ | Office | Primary Care | Massimo Ramos | | | 2019 | Visit | | MD [address] | | | | | | [place] | | | | | | [address] | | | | | | | | +--------+---------+ + + + | 10/03/ | Office | Neurology | Fabián Carias MD | | | 2019 | Visit | | [address] | | | | | | [place] | | | | | | [address] | | | | | | | [...] | | care | | | Account Development Executive-C | | | | | | [...] | | care | | | Account Development Executive-C | | | | | | [...] | | care | | | Account Development Executive-C | | | | | | [...] | | care | | | Account Development Executive-C | | | | | | [...]
--- OUTSIDE RECORDS SUMMARY | ~2019-02-17 | XMS | Encounter Summary ---
Demographics + + + | Address | [address] | | | [place] [address] | + + + | Home Phone [...] Team Providers + +------+ + | Care Flocculator Operator Name | Role | Phone | [...] Medication Refill; | | 2017 | | [facility] | [address] [place] | Medication Refill | | | | [facility] [address] | [facility], [place] | | | | | [address] [place], | [address] | | | | | [place] [address] | [phone] | | | | | [phone] | | | +--------+--------+ + + + [...] [place] | | | | | | [address] | | | | | | [phone] | | | | | | | | +--------+---------+ + + + | 02/26/ | Office | Urology | Lillie Fowler | | | 2018 | Visit | | [address] | | | | | | [address] | | | | | | [place], [place] | | | | | | [address] | | | | | | [phone] | | | | | | | | +--------+---------+ + + + | 03/16/ | Office | Neurology | Theresa, | | | 2018 | Visit | | [address] | | | | | [address] [place], | | | | | | [place] [address] | | | | | | [phone] | | | | | | | | +--------+---------+ + + + | 04/12/ | Office | Primary Care | Massimo Ramos | | | 2019 | Visit | | MD Fer [address] | | | | | | [place] | | | | | | [address] | | | | | | | | +--------+---------+ + + + | 10/03/ | Office | Neurology | Fabián Carias MD | | | 2019 | Visit | | [address] | | | | | | [place] | | | | | | [address] | | | | | | | [...] | | care | | | Junior Mechanical Engineer-C | | | | | | [...] | | care | | | Junior Mechanical Engineer-C | | | | | | [...] | | care | | | Junior Mechanical Engineer-C | | | | | | [...] | | care | | | Junior Mechanical Engineer-C | | | | | | [...] | | unspecified | + + | 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
--- OUTSIDE RECORDS SUMMARY | ~2019-02-17 | XMS | Encounter Summary ---
Demographics + + + | Address | [address] | | | [place] [address] | + + + | Home Phone [...] Providers + +------+ + | Care Health Occupations Teacher Name | Role | Phone | [...] | | | | [place], [place] | [address] | | | | | [address] | [phone] | | | | | [phone] | | | +--------+ + + + [...] [place] | | | | | | [address] | | | | | | [phone] | | | | | | | | +--------+---------+ + + + | 02/26/ | Office | Urology | Lillie Fowler | | | 2018 | Visit | | [address] | | | | | | [address] | | | | | | [place] | | | | | | [address] | | | | | | [phone] | | | | | | | | +--------+---------+ + + + | 03/16/ | Office | Neurology | Theresa, | | | 2018 | Visit | | [address] | | | | | [address] [place], | | | | | | [place] [address] | | | | | | [phone] | | | | | | | | +--------+---------+ + + + | 04/12/ | Office | Primary Care | Massimo Ramos | | | 2019 | Visit | | MD [address] | | | | | | [place] | | | | | | [address] | | | | | | | | +--------+---------+ + + + | 10/03/ | Office | Neurology | Fabián Carias MD | | | 2019 | Visit | | [address] | | | | | | [place] | | | | | | [address] | | | | | | | [...] | | | care | | | Deputy Chief Counsel-C | | | | | | | [...] | | | care | | | Deputy Chief Counsel-C | | | | | | | [...] | | | care | | | Deputy Chief Counsel-C | | | | | | | [...] | | | care | | | Deputy Chief Counsel-C | | | | | | | [...] + +--------+ + + + | XR FOREARM LEFT 2 VW | Routin | 10/03/2016 | | Results for this | | | e | 11:55 AM | | procedure are in the | | | | PDT | | results section. | + +--------+ + + + documented in this encounter Results XR Forearm Left 2 Vw (10/03/2016 11:55 AM PDT) + + | Specimen | + + | | + + + + + | Narrative | Performed At | + + + | EXAMINATION: FOREARM 2 VIEW/LEFT HISTORY: LEFT DISTAL ULNAR | | | PAIN COMPARISON STUDY: None FINDINGS: Distance between the | | | scaphoid and lunate is 7 mm. Narrowing of the radiocarpal | | | articulation is evident most apparent at the radial styloid scaphoid | | | articulation. Subchondral lucency is present at the distal radius | | | compatible with subchondral cyst. No acute fracture is identified. | | | IMPRESSION: 1. No acute finding. 2. Scapholunate ligament tear | | | is apparent. Recommend orthopedic consult. 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 JOB #: [id number] Digitally Released by: | | | Drew Lawrence Read By: DREW LAWRENCE MD Date: | | | 10/03/2016 12:19 | | + + + + + | Procedure Note | + + | Adithya Mcneill Results In - 04/17/2017 12:58 PM PST EXAMINATION: | | FOREARM 2 VIEW/LEFT | | | | HISTORY: | | LEFT DISTAL ULNAR PAIN | | | | COMPARISON STUDY: | | None | | | | FINDINGS: | | Distance between the scaphoid and lunate is 7 mm. | | | | Narrowing of the radiocarpal articulation is evident most apparent at the | | radial styloid scaphoid articulation. Subchondral lucency is present at the | | distal radius compatible with subchondral cyst. No acute fracture is | | identified. | | | | IMPRESSION: | | 1. No acute finding. | | 2. Scapholunate ligament tear is apparent. Recommend orthopedic consult. | | 3. Osteoarthritis radiocarpal articulation. | | | | | | JOB #: [id number] | | Digitally Released by: Drew Lawrence | | | | | | Read By: DREW LAWRENCE MD | | Date: 10/03/2016 12:19 | | | + + documented in this encounter Visit Diagnoses Not on filedocumented in this encounter"
--- OUTSIDE RECORDS SUMMARY | ~2019-02-17 | XMS | Encounter Summary ---
Demographics + + + | Address | [address] | | | [place] [address] | + + + | Home Phone [...] Team Providers + +------+ + | Care Production Counter Name | Role | Phone | + +------+ + | Horacio Silvestre DO | PCP | | + +------+ + Reason for Visit + + + | Reason | Comments | + + + | Back Pain | | + + + | Neuropathy | | + + + | Neck Pain | | + + + Encounter Details +--------+---------+ + + + | Date | Type | Department | Care Team | Description | +--------+---------+ + + + | 09/30/ | Office | [facility] | Theresa, | Altered mental | | 2019 | Visit | [facility] | Hank, DRAW PRESS OPERATOR [address] | status, unspecified | | | | CLINIC [address] | [facility] [place], | altered mental | | | | DR [place], | [place] [address] | status type (Primary | | | | [place] [address] | [phone] | Dx) | | | | [phone] | | | +--------+---------+ + + + [...] + + + | Blood Pressure | 114/82 | 09/30/2018 12:59 PM | | | | | PDT | | + + + + + | Pulse | 97 | 09/30/2018 12:59 PM | | | | | PDT | | + + + + + | Temperature | - | - | | + + + + + | Respiratory Rate | 18 | 09/30/2018 12:59 PM | | | | | PDT | | + + + + + | Oxygen Saturation | 92% | 09/30/2018 12:59 PM | | | | | PDT | | + + + + + | Inhaled Oxygen | - | - | | | Concentration | | | | + + + + + | Weight | 89.8 kg (198 lb) | 09/30/2018 12:59 PM | | | | | PDT | | + + + + + | Height | 167.6 cm (5' 6") | 09/30/2018 12:59 PM | | | | | PDT | | + + + + + | Body Mass Index | 31.96 | 09/30/2018 12:59 PM | | | | | PDT [...] of this encounter Patient Instructions Patient Instructions Hank Cardenas FNP - 09/30/2018 1:00 PM PDT documented in this encounter Progress Notes Hank Cardenas FNP - 09/30/2018 1:00 PM PDTThe patient presented to the neurology cli jose today for follow-up for his diabetic polyneuropathy, neck and back pain as well as histo ry of TIA or stroke. Vital signs were stable with mildly decreased O2 saturation 92%. Opal ent was not able to carry a conversation due to extreme fatigue and lethargy. Patient fell asleep sleep midsentence and seemed confused. He did have myoclonic jerks and nearly fell o ut of the exam chair several times during my visit with him. The patient does seem short of breath with a dusky appearance to his lips. Lung sounds were moist upon auscultation. Aft er discussion with the patient and his , they were agreeable to evaluation in the emerge ncy room to further investigate the cause of his symptoms. The patient's reports that his severe fatigue and lethargy along with weakness and confusion have continued to worsen s ignificantly over the past [address] Bhatti to update him on the patient's condition. I also called the emergency room t o give report on this patient. I reviewed extensively the patient's chart including recent lab work, chest x-ray, echocardiogram and medication list. No obvious cause for the patient 's symptoms. He is now off of all of his narcotic medications. Plan to reschedule the patient for follow-up for his neuropathy, neck and back pain as well as history of TIA. Patient was sent directly to the emergency room by private vehicle per patient request. Delfino cumented in this encounter Plan of Treatment +--------+---------+ [...] [place] | | | | | | [address] | | | | | | [phone] | | | | | | | | +--------+---------+ + + + | 02/26/ | Office | Urology | Lillie Fowler | | | 2018 | Visit | | LILLIE Lopez [address] | | | | | | [address] | | | | | | [place], [place] | | | | | | [address] | | | | | | [phone] | | | | | | | | +--------+---------+ + + + | 03/16/ | Office | Neurology | Theresa, | | | 2018 | Visit | | [address] | | | | | | [address] [place], | | | | | | [place] [address] | | | | | | [phone] | | | | | | | | +--------+---------+ + + + | 04/12/ | Office | Primary Care | Massimo Ramos Pedro Luis | | | 2019 | Visit | | MD Fer [address] | | | | | | [place] | | | | | | [address] | | | | | | | | +--------+---------+ + + + | 10/03/ | Office | Neurology | Fabián Carias MD | | | 2019 | Visit | | [address] | | | | | | [place] | | | | | | [address] | | | | | | | [...] | | | care | | | Stoker Erector-C | | | | | | | [...] | | | care | | | Stoker Erector-C | | | | | | | [...] | | | care | | | Stoker Erector-C | | | | | | | [...] | | | care | | | Stoker Erector-C | | | | | | | linical | + +--------+ +---+-----+ + + + | Note: Pt will | | check CBG's daily x1 | | Pt will take Lantis as | | prescribed | + + documented as of this encounter Visit Diagnoses + + | Diagnosis | + + | Altered mental status, unspecified altered mental status type - Primary | + + documented in this encounter Additional Health Concerns + + + + | Infection | Noted Time | Resolved Time | + + + + | Methicillin-resistant Staphylococcus aureus | 07/20/2018 4:00 PM | | | | PDT | | + + + + documented as of this encounter
--- OUTSIDE RECORDS SUMMARY | ~2019-02-17 | XMS | Encounter Summary ---
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 | | hyperthyroidism; | | | | [...] be sent through Care Everywhere.Renal Insuffici ency (Greenlandic)Drug Reaction, Other (Greenlandic)Dehydration (Adult) (Greenlandic)Hyperthyroidism (En karine)documented in this encounter Medications at [...] [place] | | | | | | [address] | | | | | | [phone] | | | | | | | | +--------+---------+ + + + | 02/26/ | Office | Urology | Lillie Fowler | | | 2018 | Visit | | [address] | | | | | | [address] | | | | | | [place], [place] | | | | | | [address] | | | | | | [phone] | | | | | | | | +--------+---------+ + + + | 03/16/ | Office | Neurology | Theresa, | | | 2018 | Visit | | [address] | | | | | | [address] [place], | | | | | | [place] [address] | | | | | | [phone] | | | | | | | | +--------+---------+ + + + | 04/12/ | Office | Primary Care | Massimo Ramos | | | 2019 | Visit | | MD [address] | | | | | | DR [place], [place] | | | | | | [address] | | | | | | | | +--------+---------+ + + + | 10/03/ | Office | Neurology | Fabián Carias MD | | | 2019 | Visit | | [address] | | | | | | [place], [place] | | | | | | [address] | | | | | | | [...] | | | care | | | Patient'S Librarian-C | | | | | | [...] | | | care | | | Patient'S Librarian-C | | | | | | [...] | | | care | | | Patient'S Librarian-C | | | | | | [...] | | | care | | | Patient'S Librarian-C | | | | | | [...] - 1.030 | [place] | | | [place] | | | [facility] | | | [...] + + | [facility] | [address] | [place] [address] | [phone] | | [facility]OSPITAL [facility] | | | [...] the attending | LABORATORY | | physician. Ckty-nit-uhhuidh drugs may cross react with some methods. [...] + + | [facility] | [address] | [place] [address] | [phone] | | HOSPITAL [facility] | | | [...] + + | [facility] | [address] | [place] [address] | [phone] | | HOSPITAL [facility] | | | [...] + + | [facility] | [address] | [place] [address] | [phone] | | HOSPITAL [facility] | | | [...] | mL/min/1.73m2 | [facility] | | | [facility] | RATE,ESTIMATED | | HOSPITAL | | | | mL/min/1.12j2Lhat than | | LABORATORY | | | [...] + + | [facility] | [address] | [place] [address] | [phone] | | HOSPITAL [facility] | | | [...] + + | [facility] | [address] | [place] [address] | [phone] | | HOSPITAL [facility] | | | [...]
--- OUTSIDE RECORDS SUMMARY | ~2019-02-17 | XMS | Encounter Summary ---
Demographics + + + | Address | [address] | | | [place] [address] | + + + | Home Phone [...] Providers + +------+ + | Care Machine Silver Stripper Name | Role | Phone | [...] | | | | [address] [place], | [address] | | | | | [place] [address] | [phone] | | | | | [phone] | | | +--------+--------+ + + + [...] [place] | | | | | | [address] | | | | | | [phone] | | | | | | | | +--------+---------+ + + + | 02/26/ | Office | Urology | Lillie Fowler | | | 2018 | Visit | | [address]IE [address] | | | | | | [address] | | | | | | [place], [place] | | | | | | [address] | | | | | | [phone] | | | | | | | | +--------+---------+ + + + | 03/16/ | Office | Neurology | Theresa, | | | 2018 | Visit | | [address] | | | | | | [address] [place], | | | | | | [place] [address] | | | | | | [phone] | | | | | | | | +--------+---------+ + + + | 04/12/ | Office | Primary Care | Massimo Ramos | | | 2019 | Visit | | MD Fer [address] | | | | | | [place] | | | | | | [address] | | | | | | | | +--------+---------+ + + + | 10/03/ | Office | Neurology | Fabián Carias MD | | | 2019 | Visit | | [address] | | | | | | [place] | | | | | | [address] | | | | | | | [...] | | | care | | | General Office Worker-C | | | | | | [...] | | | care | | | General Office Worker-C | | | | | | [...] | | | care | | | General Office Worker-C | | | | | | [...] | | | care | | | General Office Worker-C | | | | | | | linical | + +--------+ +---+-----+ + + + | Note: Pt will | | check CBG's daily x1 | | Pt will take Lantis as | | prescribed | + + documented as of this encounter Visit Diagnoses Not on filedocumented in this encounter"
--- OUTSIDE RECORDS SUMMARY | ~2019-02-17 | XMS | Encounter Summary ---
Demographics + + + | Address | [address] | | | [place] [address] | + + + | Home Phone [...] Team Providers + +------+ + | Care Perinatal Tech Name | Role | Phone | [...] Other | | 2018 | | [facility] | DO [address] | | | | | [facility] [address] | [facility], [place] | | | | | [address] [place], | [address] | | | | | [place] [address] | [phone] | | | | | [phone] | | | +--------+ + + + [...] [place] | | | | | | [address] | | | | | | [phone] | | | | | | | | +--------+---------+ + + + | 02/26/ | Office | Urology | Lillie Fowler | | | 2018 | Visit | | [address] | | | | | | [address] | | | | | | [place] | | | | | | [address] | | | | | | [phone] | | | | | | | | +--------+---------+ + + + | 03/16/ | Office | Neurology | Theresa, | | | 2018 | Visit | | [address] | | | | | | [address] [place], | | | | | | [place] [address] | | | | | | [phone] | | | | | | | | +--------+---------+ + + + | 04/12/ | Office | Primary Care | Massimo Ramos | | | 2019 | Visit | | MD [address] | | | | | | [place] | | | | | | [address] | | | | | | | | +--------+---------+ + + + | 10/03/ | Office | Neurology | Fabián Carias MD | | | 2020 | Visit | | [address] | | | | | | [place] | | | | | | [address] | | | | | | | [...] | | care | | | Wax Engraver-C | | | | | | | [...] | | care | | | Wax Engraver-C | | | | | | | [...] | | care | | | Wax Engraver-C | | | | | | | [...] | | care | | | Wax Engraver-C | | | | | | | linical | + +--------+ +---+-----+ + + + | Note: Pt will | | check CBG's daily x1 | | Pt will take Lantis as | | prescribed | + + documented as of this encounter Visit Diagnoses Not on filedocumented in this encounter"
--- OUTSIDE RECORDS SUMMARY | ~2019-02-17 | XMS | Encounter Summary ---
Demographics + + + | Address | [address] | | | [place] [address] | + + + | Home Phone [...] Team Providers + +------+ + | Care Patient Services Coordinator Name | Role | Phone | + +------+ + | Ryan Gutiérrez MD | PCP | | + +------+ + Reason for Visit + + + | Reason | Comments | + + + | Neck Pain | neck pain, worse on the left side | + + + | Numbness | in the fingers | + + + Evaluate & Treat (Routine) +--------+--------+ + + + + | Status | Reason | Specialty | Diagnoses / | Referred By | Referred To | | | | | Procedures | Contact | Contact | +--------+--------+ + + + + | Closed | | Physical | Diagnoses | Brock, | Ismael, | | | | Medicine and | Cervical | Ryan Montez, | Mor Khan MD | | | | Rehabilitatio | radiculopath | [address] | | | | n | y Numbness | [facility] | [facility] | | | | | and tingling | [address], | [place], [place] | | | | | of right | [place] [address] | [address] Phone: | | | | | arm Neck | Phone: | [phone] | | | | | pain | [phone] | Fax: | | | | | Procedures | Fax: | [phone] | | | | | [place] OFFICE | [phone] | | | | | | CONSULTATION | | | | | | | NEW/ESTAB | | | | | | | PATIENT 60 | | | | | | | MIN | | | +--------+--------+ + + + + Encounter Details +--------+---------+ + + + | Date | Type | Department | Care Team | Description | +--------+---------+ + + + | 05/05/ | Office | [facility] | Mor Guevara | Neck pain, chronic | | 2013 | Visit | PHYSIATRY [address] | (Primary Dx); DDD | | | | [place], | [address] [place] [place], [place] | (degenerative disc | | | | [place] [address] | [address] | disease), cervical; | | | | [phone] | | Paresthesias - both | | | | | | hands | +--------+---------+ + + + Social History [...] + + + | Blood Pressure | 142/97 | 05/05/2013 10:07 AM | | | | | PST | | + + + + + | Pulse | 66 | 05/05/2013 10:07 AM | | | | | [...] Weight | 90.3 kg (199 lb) | 05/05/2013 10:07 AM | | | | | PST | | + + + + + | Height | 167.6 cm (5' 6") | 05/05/2013 10:07 AM | | | | | PST | | + + + + + | Body Mass Index | 32.12 | 05/05/2013 10:07 AM | | | | | PST | | + + + + + documented in this encounter Progress Notes Mor Guevara MD - 05/05/2013 10:13 AM PST CHIEF COMPLAINT: Chief Complaint Patient presents with Neck Pain neck pain, worse on the left side Numbness in the fingers HISTORY OF PRESENT ILLNESS: The patient is a 72 y.o. male being seen today at the request of Dr. Ryan Gutiérrez for complaints of neck pain. The patient's current symptoms began over a year or more ago altho ugh he did report that he has had some pain ever since a fall from a helicopter in [place] in 8. Overall the patient reports that the symptoms have been worsening over the last 6 months. He rates the pain as severe at times. He describes the pain as burning. His symptoms worse n with activities. His symptoms improve with hot showers as well as with the use of Gabapen tin. The patient does describe numbness of the index and the middle fingers on both hands, worse on the left. He does report weakness of the arms and legs. He does not have bowel and bladder dysfunction. He does not have saddle anesthesia. Treatments for these complaints have included physical therapy which was for the back, mass age along with Gabapentin. He has had an MRI of the cervical spine which is available for review. This is not the bes t study as there is a lot of motion artifact. The images were personally reviewed by me west h the patient. PAST MEDICAL HISTORY Past Medical History Diagnosis Date Thyroid disease Gout Neuropathy Hypertension GERD (gastroesophageal reflux disease) Hiatal hernia PAST SURGICAL HISTORY Past Surgical History Procedure Date Appendectomy CURRENT MEDICATIONS: Current Outpatient Prescriptions Medication Sig Dispense Refill aspirin 81 mg EC tablet Take 81 mg by mouth Daily. atenolol (TENORMIN) 25 mg tablet Take 25 mg by mouth Daily. gabapentin (NEURONTIN) 300 mg capsule Take 600 mg by mouth 3 times daily. levothyroxine (SYNTHROID, LEVOTHROID) 137 MCG tablet Take 137 mcg by mouth every mornin g (before breakfast). omeprazole (PRILOSEC) 20 mg capsule Take 20 mg by mouth every morning (before breakfast ). testosterone (ANDRODERM) 2.5 mg/[address] 1 patch onto the skin Daily. ALLERGIES: No Known Allergies SOCIAL HISTORY History Substance Use Topics Smoking status: Former Smoker Smokeless tobacco: Not on file Alcohol Use: Not on file FAMILY HISTORY No family history on file. REVIEW OF SYSTEMS: GENERALLY: No fever, chills, no night sweats, + fatigue, no weight loss, no weight gain. EYES: + vision changes. EARS, NOSE, AND THROAT: No hearing loss, no ear pain, no nosebleeds, no toothache, no gum p roblems, no significant snoring or sleep apnea, no seasonal allergies, no difficulty swallow ing, no hoarseness. NEUROMUSCULAR: Please see the review of systems discussed above in the history of present illness. In addition, the patient has no dizziness, no blackouts, no headaches. PSYCHIATRIC: No depression, no difficulty sleeping, no anxiety, no memory loss. CARDIOVASCULAR: No chest pain, no palpitations, no swollen ankles. PULMONARY: No shortness of breath, no cough. GASTROINTESTINAL: No poor appetite, no diarrhea, no nausea or vomiting, no bowel incontine nce, no hemorrhoids, no constipation, no abdominal pain. GENITOURINARY: + urinary difficulty and no incontinence. SKIN: No rashes. HEMATOLOGIC/LYMPHATIC: No enlarged lymph nodes or swollen glands. ENDOCRINE: No diabetes, no thyroid disease, no osteopenia or osteoporosis. RHEUMATOLOGIC: No osteoarthritis, no rheumatoid arthritis. PHYSICAL EXAMINATION: Blood pressure 142/97, pulse 66, height 1.676 m (5' 6"), weight 90.266 kg (199 lb). Body ma ss index is 32.12 kg/(m^2). GENERAL: The patient is well developed and well nourished. He does not appear uncomfortabl e when seated. HEENT: Normocephalic and atraumatic. Normal sclerae without icterus. NECK (ANTERIOR): There is no apparent cervical lymphadenopathy or thyromegaly. PULMONARY: The patient is in no acute respiratory distress with unlabored respirations. CARDIOVASCULAR: Regular rate and rhythm. There is not lower extremity edema. ABDOMEN: Non-distended. SKIN: Limited skin exam shows no significant rashes or lesions. There are not scars in the cervical region. NEUROLOGIC: The patient is awake, alert, and oriented. He follows simple and complex commands. His speech is fluent. He comprehends speech well. He has no apparent deficits with short or roasterman memory. The cranial nerves appear grossly intact. Sensory exam does show diminished sensation to light touch in the upper extremities, mostl y in the finger tips of the middle fingers. REFLEX: RIGHT LEFT BICEPS 1+ 1+ BRACHIORADIALIS 1+ 1+ TRICEPS 1+ 1+ PATELLAR 1+ 1+ ACHILLES 1+ 1+ MOSES'S Negative Negative PLANTAR Downgoing Downgoing MUSCULOSKELETAL : Range of motion testing of the cervical spine showed mild loss of range o f motion with forward flexion, rotation and lateral bending. Extension was somewhat more li mited and painful. Spurling sign was negative. Shoulder examination shows well preserved ran ge of motion with external rotation, internal rotation and abduction. Impingement testing was negative. Strength testing in bilateral upper extremities showed 5/5 strength with no fo madhu weakness. ASSESSMENT: 1. Neck pain 2. DDD cervical spine with some central canal and foraminal narrowing at several levels. 3. Paresthesias in bilateral upper extremities. PLAN: 1. I would first like to try to determine if the paresthesias in the hands are coming more from his neck or possibly from carpal tunnel syndrome. I believe this would be best evalua rosemarie by EMG and nerve conduction studies and this will be scheduled pending insurance authorlulu yanebrandt. 2. He has had PT for his low back but not necessarily for his neck and I do think that wou ld be worth trying. That can be done closer to his home in [facility] if a physical therapy l ocation can be found that will accept his insurance. A PT prescription was given. ELECTRONICALLY SIGNED BY: Mor Guevara MD, 05/05/2013 documented in this encounter Plan of Treatment [...] [place] | | | | | | [address] | | | | | | [phone] | | | | | | | | +--------+---------+ + + + | 02/26/ | Office | Urology | Lillie Fowler | | | 2018 | Visit | | [address] | | | | | | [address] | | | | | | [place], [place] | | | | | | [address] | | | | | | [phone] | | | | | | | | +--------+---------+ + + + | 03/16/ | Office | Neurology | Theresa, | | | 2018 | Visit | | [address] | | | | | | [address] [place], | | | | | | [place] [address] | | | | | | [phone] | | | | | | | | +--------+---------+ + + + | 04/12/ | Office | Primary Care | Massimo Ramos | | | 2019 | Visit | | MD Fer [address] | | | | | | [place] | | | | | | [address] | | | | | | | | +--------+---------+ + + + | 10/03/ | Office | Neurology | Fabián Carias MD | | | 2019 | Visit | | [address], [place] | | | | | | [place], [place] | | | | | | [address] | | | | | | | [...] | | care | | | Supervisor Metal Furniture Fabrication-C | | | | | | | [...] | | care | | | Supervisor Metal Furniture Fabrication-C | | | | | | | [...] | | care | | | Supervisor Metal Furniture Fabrication-C | | | | | | | [...] | | care | | | Supervisor Metal Furniture Fabrication-C | | | | | | | linical | + +--------+ +---+-----+ + + + | Note: Pt will | | check CBG's daily x1 | | Pt will take Lantis as | | prescribed | + + documented as of this encounter Visit Diagnoses + + | Diagnosis | + + | Neck pain, chronic - Primary Cervicalgia | + + | DDD (degenerative disc disease), cervical Degeneration of cervical intervertebral | | disc | + + | Paresthesias - both hands Disturbance of skin sensation | + + documented in this encounter
--- OUTSIDE RECORDS SUMMARY | ~2019-02-17 | XMS | Encounter Summary ---
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 03/07/2017 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, left shelter current use of opiate analgesic 06/27/2017 Current use of beta marly 06/30/2017 Panlobular emphysema 08/08/2017 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 When EMS arrived at the [facility]'s home his blood pressure was low [...] of 1.9. The patient was admitted to [facility] on IV azithromycin and ceftriaxone for suspected [...] Disposition: Home Follow-Up Plans: Horacio Silvestre, DO [facility] [address] [facility] [place] [address] In 2 weeks Hospital follow up You [...] Date/Time Influenza A and B Ag, [place] [[id number]] (Normal) Collected: 05/27/18 1115 Order Status: Completed Lab Status: Final result Updated: 05/27/18 1137 Specimen: Tissue from Nasopharynx Influenza A Ag, EIA Negative Influenza B Ag, EIA Negative Narrative: A negative test result may occur if the level of antigen in the sample is below the detect ion limit of the test and should be confirmed by culture. Culture, Blood [[id number]] (Normal) Collected: 05/26/18 1854 Order Status: Completed Lab Status: Preliminary result Updated: 05/27/18720 Specimen: Blood from Peripheral Blood Culture No growth: Monitored continually by instrument for 5 days Culture, Blood [[id number]] (Normal) Collected: 05/26/18 1820 Order Status: Completed [...] be sent through Care Everywhere.Renal Insuffici ency (Cymro)Blood Sugar, How to Check Your (Cymro)Hypertension, Established (Cymro)Hig h Blood Pressure (Hypertension), Discharge Instructions (Cymro)documented in this encounte r Medications at Time [...] take the short acting insulin. Please see TELECOMMUNICATIONS PROFESSIONAL med list for updated medication list. Electronically [...] [place] | | | | | | [address] | | | | | | [phone] | | | | | | | | +--------+---------+ + + + | 02/26/ | Office | Urology | Lillie Fowler | | | 2018 | Visit | | LILLIE Lopez [address] | | | | | | [address] | | | | | | [place], [place] | | | | | | [address] | | | | | | [phone] | | | | | | | | +--------+---------+ + + + | 03/16/ | Office | Neurology | Theresa, | | | 2018 | Visit | | [address] | | | | | | [address] [place], | | | | | | [place] [address] | | | | | | [phone] | | | | | | | | +--------+---------+ + + + | 04/12/ | Office | Primary Care | Massimo Ramos | | | 2019 | Visit | | MD Fer [address] | | | | | | [place] | | | | | | [address] | | | | | | | | +--------+---------+ + + + | 10/03/ | Office | Neurology | Fabián Carias MD | | | 2020 | Visit | | [address] | | | | | | [place] | | | | | | [address] | | | | | | | [...] | | care | | | Vocational Guidance Counselor-C | | | | | | | [...] | | care | | | Vocational Guidance Counselor-C | | | | | | | [...] | | care | | | Vocational Guidance Counselor-C | | | | | | | [...] | | care | | | Vocational Guidance Counselor-C | | | | | | | [...] J?MRN: | | | | | | [id number] | | | [id number] | | | riteri | | | [...] | | | [place] | | | Cdl Bulk Driver | | | al | | | [...] | | | ent/[id number] | | | [id number] | | | -[id number] | | | [...] + + | [place] [facility] | [address] | [place] [address] | [phone] | | [facility] | | | [...] + + | [place] [facility] | [address] | [place] [address] | [phone] | | [facility]ITAL [facility] | | | [...] + + | [place] [facility] | [address] | [place] [address] | [phone] | | H[facility]PITAL [facility] | | | [...] + + | [place] [facility] | [address] | [place] [address] | [phone] | | [facility]PITAL [facility] | | | [...] | mL/min/1.73m2 | [facility] | | | [facility] | | | [facility] | | | [...] + + | [place] [facility] | [address] | [place] [address] | [phone] | | H[facility]PITAL [facility] | | | [...] + + | [place] [facility] | [address] | [place] [address] | [phone] | | [facility]ITAL [facility] | | | [...] + + | [place] [facility] | [address] | [place] [address] | [phone] | | H[facility]ITAL [facility] | | | [...] + + | [place] [facility] | [address] | [place] [address] | [phone] | | [facility]ITAL [facility] | | | [...] WGR | | Interval: 444 ms P [place]: 17 deg QRS [place]: -41 deg T Wave [place]: -5 | TRACEMASTER | | deg P-R [...] + + | [place] [facility] | [address] | [place] [address] | [phone] | | H[facility]PITAL [facility] | | | [...] + + | [place] [facility] | [address] | [place] [address] | [phone] | | H[facility]ITAL [facility] | | | [...] + + | [place] [facility] | [address] | [place] [address] | [phone] | | H[facility]PITAL [facility] | | | [...] + + | [place] [facility] | [address] | [place] [address] | [phone] | | [facility]ITAL [facility] | | | [...] | cutoff point for the diagnosis of PR is 0.8 ng/mL for the Troponin I | | | method. | | + + + + + + + + | Performing | Address | City/State/Zipcode | Phone Number | | Organization | | | | + + + + + | [facility] [facility] | [address] | [place] [address] | [phone] | | [facility] | | | [...] | mL/min/1.73m2 | [facility] | | | [facility] | RATE,ESTIMATED | | HOSPITAL | | | | mL/min/1.83f0Yvdi than | | LABORATORY | | | [...] + + | [place] [facility] | [address] | [place] [address] | [phone] | | [facility]PITAL [facility] | | | [...] + + | [place] [facility] | [address] | [place] [address] | [phone] | | H[facility]ITAL [facility] | | | [...] - 1.030 | [place] | | | [place] | | | [facility] | | | [...] + + | [place] [facility] | [address] | [place] [address] | [phone] | | [facility]ITAL [facility] | | | [...] scheduled: | | | AC, NPO, Daytime 2892-0521 Use | | | NIGHT DOSE for doses scheduled: | | | HS, 3AM, Nighttime 4173-1777 | | | Only for use with [...]
--- OUTSIDE RECORDS SUMMARY | ~2019-02-17 | XMS | Encounter Summary ---
Demographics + + + | Address | [address] | | | [place] [address] | + + + | Home Phone [...] Team Providers + +------+ + | Care Yard Laborer Name | Role | Phone | + +------+ + PCP | Unavailable | + +------+ + Encounter Details +--------+ + + + + | Date | Type | Department | Care Team | Description | +--------+ + + + + | 07/01/ | Hospital | [place] [facility] | Ryan Gutiérrez | | | 2011 | Encounter | HOSPITAL THERAPY PT | MD [address] | | | | | [address] | [address] | | | | | [place], [place] | [place] [address] | | | | | [address] | [phone] | | | | | [phone] | | | +--------+ + + + [...] [place] | | | | | | [address] | | | | | | [phone] | | | | | | | | +--------+---------+ + + + | 02/26/ | Office | Urology | Lillie Fowler | | | 2018 | Visit | | LILLIE Lopez [address] | | | | | | [address] | | | | | | [place], [place] | | | | | | [address] | | | | | | [phone] | | | | | | | | +--------+---------+ + + + | 03/16/ | Office | Neurology | Theresa, | | | 2018 | Visit | | [address] | | | | | | [address] [place], | | | | | | [place] [address] | | | | | | [phone] | | | | | | | | +--------+---------+ + + + | 04/12/ | Office | Primary Care | Massimo Ramos Pedro Luis | | | 2019 | Visit | | MD Fer [address] | | | | | | [address] [place] | | | | | | [address] | | | | | | | | +--------+---------+ + + + | 10/03/ | Office | Neurology | Fabián Carias MD | | | 2019 | Visit | | [address] | | | | | | [place] | | | | | | [address] | | | | | | | [...] | | | care | | | Jitterbug Operator-C | | | | | | [...] | | | care | | | Jitterbug Operator-C | | | | | | [...] | | | care | | | Jitterbug Operator-C | | | | | | [...] | | | care | | | Jitterbug Operator-C | | | | | | | linical | + +--------+ +---+-----+ + + + | Note: Pt will | | check CBG's daily x1 | | Pt will take Lantis as | | prescribed | + + documented as of this encounter Visit Diagnoses Not on filedocumented in this encounter"
--- OUTSIDE RECORDS SUMMARY | ~2019-02-17 | XMS | Encounter Summary ---
Demographics + + + | Address | [address] | | | [place] [address] | + + + | Home Phone [...] Providers + +------+ + | Care Top Precipitator Operator Helper Name | Role | Phone | + +------+ + PCP | Unavailable | + +------+ + Encounter Details +--------+ + + + + | Date | Type | Department | Care Team | Description | +--------+ + + + + | 03/13/ | Hospital | [place] [facility] | [facility] | | | 2010 | Encounter | HOSPITAL EMERGENCY | MD Artie Downs | | | | | CENTER [address] | [place], | | | | | [address] [place], [place] | [place] [address] | | | | | [address] | [phone] | | | | | [phone] | | | +--------+ + + + [...] [place] | | | | | | [address] | | | | | | [phone] | | | | | | | | +--------+---------+ + + + | 02/26/ | Office | Urology | Lillie Fowler | | | 2018 | Visit | | [address]ILLIE Lopez [address] | | | | | | [address] | | | | | | [place], [place] | | | | | | [address] | | | | | | [phone] | | | | | | | | +--------+---------+ + + + | 03/16/ | Office | Neurology | Theresa, | | | 2018 | Visit | | [address] | | | | | | [address] [place], | | | | | | [place] [address] | | | | | | [phone] | | | | | | | | +--------+---------+ + + + | 04/12/ | Office | Primary Care | Massimo Ramos | | | 2019 | Visit | | MD Fer [address] | | | | | | [place] | | | | | | [address] | | | | | | | | +--------+---------+ + + + | 10/03/ | Office | Neurology | Fabián Carias MD | | | 2019 | Visit | | [address] | | | | | | [place] | | | | | | [address] | | | | | | | [...] | | | care | | | Cocoa Butter Filter Operator-C | | | | | | [...] | | | care | | | Cocoa Butter Filter Operator-C | | | | | | [...] | | | care | | | Cocoa Butter Filter Operator-C | | | | | | [...] | | | care | | | Cocoa Butter Filter Operator-C | | | | | | | linical | + +--------+ +---+-----+ + + + | Note: Pt will | | check CBG's daily x1 | | Pt will take Lantis as | | prescribed | + + documented as of this encounter Visit Diagnoses Not on filedocumented in this encounter"
--- OUTSIDE RECORDS SUMMARY | ~2019-02-17 | XMS | Encounter Summary ---
Demographics + + + | Address | [address] | | | [place] [address] | + + + | Home Phone [...] Team Providers + +------+ + | Care Nurse Auditor Name | Role | Phone | [...] Medication Refill | | 2017 | | [facility] | DO [address] [place] | | | | | [facility] | [facility] [place] | | | | | [address] [place], | [address] | | | | | [place] [address] | [phone] | | | | | [phone] | | | +--------+ + + + [...] [place] | | | | | | [address] | | | | | | [phone] | | | | | | | | +--------+---------+ + + + | 02/26/ | Office | Urology | Lillie Fowler | | | 2018 | Visit | | [address]ILLIE Lopez [address] | | | | | | [address] | | | | | | [place], [place] | | | | | | [address] | | | | | | [phone] | | | | | | | | +--------+---------+ + + + | 03/16/ | Office | Neurology | Theresa, | | | 2018 | Visit | | [address] | | | | | | [address] [place], | | | | | | [place] [address] | | | | | | [phone] | | | | | | | | +--------+---------+ + + + | 04/12/ | Office | Primary Care | Massimo Ramos Pedro Luis | | | 2019 | Visit | | MD eFr [address] | | | | | | [place] | | | | | | [address] | | | | | | | | +--------+---------+ + + + | 10/03/ | Office | Neurology | Fabián Carias MD | | | 2019 | Visit | | [address] | | | | | | [place] | | | | | | [address] | | | | | | | [...] | | care | | | Veneer Sample Maker-C | | | | | | [...] | | care | | | Veneer Sample Maker-C | | | | | | [...] | | care | | | Veneer Sample Maker-C | | | | | | [...] | | care | | | Veneer Sample Maker-C | | | | | | [...] | | unspecified | + + | remote computer terminal [...]
--- OUTSIDE RECORDS SUMMARY | ~2019-02-17 | XMS | Encounter Summary ---
Demographics + + + | Address | [address] | | | [place] [address] | + + + | Home Phone [...] Team Providers + +------+ + | Care Aircraft Powertrain Repairer Name | Role | Phone | [...] | | [facility] | Manager Nicu-Clinical | | | | | [facility] [facility] [place], | | | | | | [place] [address] | | | | | | [phone] | | | +--------+ + + + [...] [place] | | | | | | [address] | | | | | | [phone] | | | | | | | | +--------+---------+ + + + | 02/26/ | Office | Urology | Lillie Fowler | | | 2018 | Visit | | LILLIE Lopez [address] | | | | | | [address] | | | | | | [place], [place] | | | | | | [address] | | | | | | [phone] | | | | | | | | +--------+---------+ + + + | 03/16/ | Office | Neurology | Theresa, | | | 2018 | Visit | | [address] | | | | | | [address] [place], | | | | | | [place] [address] | | | | | | [phone] | | | | | | | | +--------+---------+ + + + | 04/12/ | Office | Primary Care | Massimo Ramos | | | 2019 | Visit | | MD Fer [address] | | | | | | [place] | | | | | | [address] | | | | | | | | +--------+---------+ + + + | 10/03/ | Office | Neurology | Fabián Carias MD | | | 2019 | Visit | | [address] | | | | | | [place] | | | | | | [address] | | | | | | | [...] | | care | | | Manager Nicu-C | | | | | | | [...] | | care | | | Manager Nicu-C | | | | | | | [...] | | care | | | Manager Nicu-C | | | | | | | [...] | | care | | | Manager Nicu-C | | | | | | | [...]
--- OUTSIDE RECORDS SUMMARY | ~2019-02-17 | XMS | Encounter Summary ---
Demographics + + + | Address | [address] | | | [place] [address] | + + + | Home Phone [...] Providers + +------+ + | Care Manager Animation Name | Role | Phone | + [...] [address] | | | | | [place] [address] | | | | | | [phone] | | | +--------+ + + + [...] [place] | | | | | | [address] | | | | | | [phone] | | | | | | | | +--------+---------+ + + + | 02/26/ | Office | Urology | Lillie Fowler | | | 2018 | Visit | | [address]ILLIE Lopez [address] | | | | | | [address] | | | | | | [place], [place] | | | | | | [address] | | | | | | [phone] | | | | | | | | +--------+---------+ + + + | 03/16/ | Office | Neurology | Theresa, | | | 2018 | Visit | | [address] | | | | | | [address] [place], | | | | | | [place] [address] | | | | | | [phone] | | | | | | | | +--------+---------+ + + + | 04/12/ | Office | Primary Care | Massimo Ramos | | | 2019 | Visit | | MD Fer [address] | | | | | | [place] | | | | | | [address] | | | | | | | | +--------+---------+ + + + | 10/03/ | Office | Neurology | Fabián Carias MD | | | 2019 | Visit | | [address] | | | | | | [place] | | | | | | [address] | | | | | | | [...] | | | care | | | Instrument And Control Technician-C | | | | | | [...] | | | care | | | Instrument And Control Technician-C | | | | | | [...] | | | care | | | Instrument And Control Technician-C | | | | | | [...] | | | care | | | Instrument And Control Technician-C | | | | | | [...]
--- OUTSIDE RECORDS SUMMARY | ~2019-02-17 | XMS | Encounter Summary ---
Demographics + + + | Address | [address] | | | [place] [address] | + + + | Home Phone [...] Team Providers + +------+ + | Care Edge Molder Name | Role | Phone | + [...] pneumonia | | 2018 | Visit | [facility] | DNP [address] | (Primary Dx); | | | | [facility]ICAL [facility] [address] | [place] [address] | Intractable vomiting | | | | [address] [place], | [phone] | with nausea, | | | | [place] [address] | | unspecified vomiting | | | | [phone] | | type; Dysuria | +--------+---------+ + [...] [place] | | | | | | [address] | | | | | | [phone] | | | | | | | | +--------+---------+ + + + | 02/26/ | Office | Urology | Lillie Fowler | | | 2019 | Visit | | LILLIE Lopez [address] | | | | | | [address] | | | | | | [place] | | | | | | [address] | | | | | | [phone] | | | | | | | | +--------+---------+ + + + | 03/16/ | Office | Neurology | Theresa, | | | 2018 | Visit | | [address] | | | | | | [address] [place], | | | | | | [place] [address] | | | | | | [phone] | | | | | | | | +--------+---------+ + + + | 04/12/ | Office | Primary Care | Massimo Ramos | | | 2019 | Visit | | MD Fer [address] | | | | | | [place] | | | | | | [address] | | | | | | | | +--------+---------+ + + + | 10/03/ | Office | Neurology | Fabián Carias MD | | | 2019 | Visit | | [address] | | | | | | [place] | | | | | | [address] | | | | | | | [...] | | care | | | Senior Mortgage Loan Processor-C | | | | | | | [...] | | care | | | Senior Mortgage Loan Processor-C | | | | | | | [...] | | care | | | Senior Mortgage Loan Processor-C | | | | | | | [...] | | care | | | Senior Mortgage Loan Processor-C | | | | | | | [...] + + | [facility] | [address] | [place] [address] | [phone] | | HOSPITAL LAB[facility]ORY | | | [...] + + | [facility] | [address] | [place] [address] | [phone] | | [facility] | | | [...] 1.030 | [place] | | | [place] | | | [facility] | | | [...] | [address] | [place] [address] | [phone] | | [facility] | | | [...] | mL/min/1.73m2 | [facility] | | | [facility] | RATE,ESTIMATED | | HOSPITAL | | | | mL/min/1.76m1Qabn than | | REGIONAL | | | [...] + + | [facility] | [address] | [place] [address] | [phone] | | [facility] | | | [...] + + | [facility] | [address] | [place] [address] | [phone] | | [facility] | | | | | [facility] | | | | + + [...]
--- OUTSIDE RECORDS SUMMARY | ~2019-02-17 | XMS | Encounter Summary ---
Demographics + + + | Address | [address] | | | [place] [address] | + + + | Home Phone [...] Team Providers + +------+ + | Care Information Systems Technician Name | Role | Phone | [...] PCP) | | 2018 | | [facility] | DO [address] | | | | | [facility]ICAL [facility] [address] | [facility], [place] | | | | | [address] [place], | [address] | | | | | [place] [address] | [phone] | | | | | [phone] | | | +--------+ + + + [...] [place] | | | | | | [address] | | | | | | [phone] | | | | | | | | +--------+---------+ + + + | 02/26/ | Office | Urology | Lillie Fowler | | | 2018 | Visit | | [address]ILLIE Lopez [address] | | | | | | [address] | | | | | | [place], [place] | | | | | | [address] | | | | | | [phone] | | | | | | | | +--------+---------+ + + + | 03/16/ | Office | Neurology | Theresa, | | | 2018 | Visit | | [address] | | | | | | [address] [place], | | | | | | [place] [address] | | | | | | [phone] | | | | | | | | +--------+---------+ + + + | 04/12/ | Office | Primary Care | Massimo Ramos | | | 2019 | Visit | | MD Fer [address] | | | | | | [place] | | | | | | [address] | | | | | | | | +--------+---------+ + + + | 10/03/ | Office | Neurology | Fabián Carias MD | | | 2019 | Visit | | [address] | | | | | | [place] | | | | | | [address] | | | | | | | [...] | | care | | | White Metal Caster-C | | | | | | | [...] | | care | | | White Metal Caster-C | | | | | | | [...] | | care | | | White Metal Caster-C | | | | | | | [...] | | care | | | White Metal Caster-C | | | | | | | linical | + +--------+ +---+-----+ + + + | Note: Pt will | | check CBG's daily x1 | | Pt will take Lantis as | | prescribed | + + documented as of this encounter Visit Diagnoses Not on filedocumented in this encounter"
--- OUTSIDE RECORDS SUMMARY | ~2019-02-17 | XMS | Encounter Summary ---
Demographics + + + | Address | [address] | | | [place] [address] | + + + | Home Phone [...] Team Providers + +------+ + | Care Second Facing Baster Name | Role | Phone | + [...] | | | | | [address] [facility], | [address] | | | | | [place] [address] | [phone] | | | | | [phone] | | | +--------+ + + + [...] [place] | | | | | | [address] | | | | | | [phone] | | | | | | | | +--------+---------+ + + + | 02/26/ | Office | Urology | Lillie Fowler | | | 2018 | Visit | | LILLIE Lopez [address] | | | | | | [address] | | | | | | [place] | | | | | | [address] | | | | | | [phone] | | | | | | | | +--------+---------+ + + + | 03/16/ | Office | Neurology | Theresa, | | | 2018 | Visit | | [address] | | | | | | [address] [place], | | | | | | [place] [address] | | | | | | [phone] | | | | | | | | +--------+---------+ + + + | 04/12/ | Office | Primary Care | Massimo Ramos | | | 2019 | Visit | | MD Fer [address] | | | | | | [place] | | | | | | [address] | | | | | | | | +--------+---------+ + + + | 10/03/ | Office | Neurology | Fabián Carias MD | | | 2019 | Visit | | [address] | | | | | | [place] | | | | | | [address] | | | | | | | [...] | | | care | | | Soil Expert-C | | | | | | | [...] | | | care | | | Soil Expert-C | | | | | | | [...] | | | care | | | Soil Expert-C | | | | | | | [...] | | | care | | | Soil Expert-C | | | | | | | linical | + +--------+ +---+-----+ + + + | Note: Pt will | | check CBG's daily x1 | | Pt will take Lantis as | | prescribed | + + documented as of this encounter Visit Diagnoses Not on filedocumented in this encounter"
--- OUTSIDE RECORDS SUMMARY | ~2019-02-17 | XMS | Encounter Summary ---
Demographics + + + | Address | [address] | | | [place] [address] | + + + | Home Phone [...] + +------+ + | Care Vice President Safety Name | Role | Phone | + [...] | | | [address] [place], | [facility], [place] | | | | | [place] [address] | [address] | | | | | [phone] | [phone] | | | | | | | [...] [place] | | | | | | [address] | | | | | | [phone] | | | | | | | | +--------+---------+ + + + | 02/26/ | Office | Urology | Lillie Fowler | | | 2018 | Visit | | LILLIE Lopez [address] | | | | | | [address] | | | | | | [place] | | | | | | [address] | | | | | | [phone] | | | | | | | | +--------+---------+ + + + | 03/16/ | Office | Neurology | Theresa, | | | 2018 | Visit | | [address] | | | | | | [address] [place], | | | | | | [place] [address] | | | | | | [phone] | | | | | | | | +--------+---------+ + + + | 04/12/ | Office | Primary Care | Massimo Ramos | | | 2019 | Visit | | MD [facility] [address] | | | | | | [address] [place] | | | | | | [address] | | | | | | | | +--------+---------+ + + + | 10/03/ | Office | Neurology | Fabián Carias MD | | | 2019 | Visit | | [address] | | | | | | [place] | | | | | | [address] | | | | | | | [...] | | | care | | | [employer] Business [employer]st-[employer] | | | | | | [...] | | | care | | | Retail Business Analyst-C | | | | | | [...] | | | care | | | Retail Business Analyst-C | | | | | | [...] | | | care | | | Retail Business Analyst-C | | | | | | | linical | + +--------+ +---+-----+ + + + | Note: Pt will | | check CBG's daily x1 | | Pt will take [place] as | | prescribed | + + documented as of this encounter Visit Diagnoses Not on filedocumented in this encounter"
--- OUTSIDE RECORDS SUMMARY | ~2019-02-17 | XMS | Encounter Summary ---
Demographics + + + | Address | [address] | | | [place] [address] | + + + | Home Phone [...] Team Providers + +------+ + | Care Dredge Master Name | Role | Phone | [...] [facility] | DO [address] | | | | | [facility] [address] | [facility], [place] | | | | | [address] [place], | [address] | | | | | [place] [address] | [phone] | | | | | [phone] | | | +--------+ + + + [...] [place] | | | | | | [address] | | | | | | [phone] | | | | | | | | +--------+---------+ + + + | 02/26/ | Office | Urology | Lillie Fowler | | | 2018 | Visit | | [address] | | | | | | [address] | | | | | | [place] | | | | | | [address] | | | | | | [phone] | | | | | | | | +--------+---------+ + + + | 03/16/ | Office | Neurology | Theresa, | | | 2018 | Visit | | [address] | | | | | | [address] [place], | | | | | | [place] [address] | | | | | | [phone] | | | | | | | | +--------+---------+ + + + | 04/12/ | Office | Primary Care | Massimo Ramos | | | 2019 | Visit | | MD Fer [address] | | | | | | [address] [place] | | | | | | [address] | | | | | | | | +--------+---------+ + + + | 10/03/ | Office | Neurology | Fabián Carias MD | | | 2019 | Visit | | [address] | | | | | | [place] | | | | | | [address] | | | | | | | [...] | | | care | | | Bmw Service Technician-C | | | | | | [...] | | | care | | | Bmw Service Technician-C | | | | | | [...] | | | care | | | Bmw Service Technician-C | | | | | | [...] | | | care | | | Bmw Service Technician-C | | | | | | | linical | + +--------+ +---+-----+ + + + | Note: Pt will | | check CBG's daily x1 | | Pt will take Lantis as | | prescribed | + + documented as of this encounter Visit Diagnoses Not on filedocumented in this encounter"
--- OUTSIDE RECORDS SUMMARY | ~2019-02-17 | XMS | Encounter Summary ---
Demographics + + + | Address | [address] | | | [place] [address] | + + + | Home Phone [...] Providers + +------+ + | Care Vacuum Furnace Operator Name | Role | Phone | [...] | +--------+ + + + + | 03/04/ | Documentati | [facility] | Lizbeth Reddy NP | Other (certified | | 2017 | on | [facility] | [address] [facility] | mail ) | | | | MEDICAL CL[facility] [address] | [place], [place] | | | | | [place], | [address] | | | | | [place] [address] | [phone] | | | | | [phone] | | | +--------+ + + + [...] this encounter Progress Notes Lor Chopra - 03/04/2017 1:54 PM PSTOXYCODONE 5 MG SENT To: [facility] [place] ADDRESS: [address] [place] [id number] TRACKING No: [id number] d ocumented in this encounter Plan of Treatment +--------+---------+ + + + | Date | Type | Specialty | Care Team | Description | +--------+---------+ + + + | 02/25/ | Office | General Surgery | YenniferScott | | | 2018 | Visit | | DO Jalen [address] | | | | | | [address] | | | | | | [place], [place] | | | | | | [address] | | | | | | [phone] | | | | | | | | +--------+---------+ + + + | 02/26/ | Office | Urology | Lillie Fowler | | | 2018 | Visit | | [address] | | | | | | [address] | | | | | | [place], [place] | | | | | | [address] | | | | | | [phone] | | | | | | | | +--------+---------+ + + + | 03/16/ | Office | Neurology | Theresa, | | | 2018 | Visit | | [address] | | | | | | [address] [place], | | | | | | [place] [address] | | | | | | [phone] | | | | | | | | +--------+---------+ + + + | 04/12/ | Office | Primary Care | Massimo Ramos Pedro Luis | | | 2019 | Visit | | MD Fer [address] | | | | | | [place] | | | | | | [address] | | | | | | | | +--------+---------+ + + + | 10/03/ | Office | Neurology | Fabián Carias MD | | | 2019 | Visit | | [address] | | | | | | [place] | | | | | | [address] | | | | | | | [...] | | | care | | | Covered Buckle Assembler-C | | | | | | [...] | | | care | | | Covered Buckle Assembler-C | | | | | | [...] | | | care | | | Covered Buckle Assembler-C | | | | | | [...] | | | care | | | Covered Buckle Assembler-C | | | | | | | linical | + +--------+ +---+-----+ + + + | Note: Pt will | | check CBG's daily x1 | | Pt will take Lantis as | | prescribed | + + documented as of this encounter Visit Diagnoses Not on filedocumented in this encounter"
--- OUTSIDE RECORDS SUMMARY | ~2019-02-17 | XMS | Encounter Summary ---
Demographics + + + | Address | [address] | | | [place] [address] | + + + | Home Phone [...] Team Providers + +------+ + | Care Education Managers Name | Role | Phone | + [...] [facility] | DO [address] | | | | | MEDICAL [facility] [address] | [facility], [place] | | | | | [address] [place], | [address] | | | | | [place] [address] | [phone] | | | | | [phone] | | | +--------+ + + + [...] [place] | | | | | | [address] | | | | | | [phone] | | | | | | | | +--------+---------+ + + + | 02/26/ | Office | Urology | Lillie Fowler | | | 2018 | Visit | | [address] | | | | | | [address] | | | | | | [place], [place] | | | | | | [address] | | | | | | [phone] | | | | | | | | +--------+---------+ + + + | 03/16/ | Office | Neurology | Theresa, | | | 2018 | Visit | | [address] | | | | | | [address] [place], | | | | | | [place] [address] | | | | | | [phone] | | | | | | | | +--------+---------+ + + + | 04/12/ | Office | Primary Care | Massimo Ramos Pedro Luis | | | 2019 | Visit | | MD Fer [address] | | | | | | [address] [place] | | | | | | [address] | | | | | | | | +--------+---------+ + + + | 10/03/ | Office | Neurology | Fabián Carias MD | | | 2019 | Visit | | [address] | | | | | | [place] | | | | | | [address] | | | | | | | [...] | | care | | | Dairy Processing Equipment Operator-C | | | | | [...] | | care | | | Dairy Processing Equipment Operator-C | | | | | [...] | | care | | | Dairy Processing Equipment Operator-C | | | | | [...] | | care | | | Dairy Processing Equipment Operator-C | | | | | [...] | unspecified | + + | 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
--- OUTSIDE RECORDS SUMMARY | ~2019-02-17 | XMS | Encounter Summary ---
Demographics + + + | Address | [address] | | | [place] [address] | + + + | Home Phone [...] + +------+ + | Care Director Of Enterprise Applications Name | Role | Phone | + +------+ + | Horacio Silvestre DO | PCP | | + +------+ + Reason for Visit + + + | Reason | Comments | + + + | Medication Orders | FYI | + + + Encounter Details +--------+ + + + + | Date | Type | Department | Care Team | Description | +--------+ + + + + | 07/27/ | Telephone | [facility] | Horacio Silvestre, | Medication Orders | | 2019 | | [facility] | DO [address] | (FYI) | | | | MEDICAL [facility] [address] | [facility], [place] | | | | | [address] [place], | [address] | | | | | [place] [address] | [phone] | | | | | [phone] | | | +--------+ + + + [...] [place] | | | | | | [address] | | | | | | [phone] | | | | | | | | +--------+---------+ + + + | 02/26/ | Office | Urology | Lillie Fowler | | | 2018 | Visit | | [address] | | | | | | [address] | | | | | | [place], [place] | | | | | | [address] | | | | | | [phone] | | | | | | | | +--------+---------+ + + + | 03/16/ | Office | Neurology | Theresa, | | | 2018 | Visit | | [address] | | | | | | [address] [place], | | | | | | [place] [address] | | | | | | [phone] | | | | | | | | +--------+---------+ + + + | 04/12/ | Office | Primary Care | Massimo Ramos Pedro Luis | | | 2019 | Visit | | MD Fer [address] | | | | | | [place] | | | | | | [address] | | | | | | | | +--------+---------+ + + + | 10/03/ | Office | Neurology | Fabián Carias MD | | | 2019 | Visit | | [address] | | | | | | [place] | | | | | | [address] | | | | | | | [...] | | care | | | Sheet Ironworker-C | | | | | | | [...] | | care | | | Sheet Ironworker-C | | | | | | | [...] | | care | | | Sheet Ironworker-C | | | | | | | [...] | | care | | | Sheet Ironworker-C | | | | | | | [...]
--- OUTSIDE RECORDS SUMMARY | ~2019-02-17 | XMS | Encounter Summary ---
Demographics + + + | Address | [address] | | | [place] [address] | + + + | Home Phone [...] Providers + +------+ + | Care Sales Operations Name | Role | Phone | + +------+ + | Ryan Gutiérrez MD | PCP | | + +------+ + Encounter Details +--------+ + + + + | Date | Type | Department | Care Team | Description | +--------+ + + + + | 12/17/ | [facility] | [place], | | | 2016 | Encounter | [facility] | Carlyle Antoine, | | | | | SURGERY [address] | [address] | | | | | [address] [place], | [place], [place] | | | | | [place] [address] | [address] | | | | | [phone] | [phone] | | | | | | | [...] [place] | | | | | | [address] | | | | | | [phone] | | | | | | | | +--------+---------+ + + + | 02/26/ | Office | Urology | Lillie Fowler | | | 2018 | Visit | | [address]IE [address] | | | | | | [address] | | | | | | [place] | | | | | | [address] | | | | | | [phone] | | | | | | | | +--------+---------+ + + + | 03/16/ | Office | Neurology | Theresa, | | | 2018 | Visit | | [address] | | | | | | [address] [place], | | | | | | [place] [address] | | | | | | [phone] | | | | | | | | +--------+---------+ + + + | 04/12/ | Office | Primary Care | Massimo Ramos | | | 2019 | Visit | | MD Fer [address] | | | | | | [place] | | | | | | [address] | | | | | | | | +--------+---------+ + + + | 10/03/ | Office | Neurology | Fabián Carias MD | | | 2019 | Visit | | [address] | | | | | | [place] | | | | | | [address] | | | | | | | [...] | | care | | | Rn Geriatric-C | | | | | | | [...] | | care | | | Rn Geriatric-C | | | | | | | [...] | | care | | | Rn Geriatric-C | | | | | | | [...] | | care | | | Rn Geriatric-C | | | | | | | linical | + +--------+ +---+-----+ + + + | Note: Pt will | | check CBG's daily x1 | | Pt will take Lantis as | | prescribed | + + documented as of this encounter Visit Diagnoses Not on filedocumented in this encounter"
--- OUTSIDE RECORDS SUMMARY | ~2019-02-17 | XMS | Encounter Summary ---
Demographics + + + | Address | [address] | | | [place] [address] | + + + | Home Phone [...] Team Providers + +------+ + | Care Splash Line Operator Name | Role | Phone | + +------+ + | Horacio Silvestre DO | PCP | | + +------+ + Reason for Visit + + + | Reason | Comments | + + + | Diarrhea (Adult) | | + + + Encounter Details +--------+ + + + + | Date | Type | Department | Care Team | Description | +--------+ + + + + | 07/05/ | Emergency | [facility] | Luciano Diana | Enterocolitis | | 2019 | | [facility] | MD [address] | (Primary Dx) | | | | C[facility] [address] | [address] | | | | | [address] [place] | [place] [address] | | | | | [address] | [phone] | | | | | [phone] | | | +--------+ + + + [...] + + + | Blood Pressure | 139/108 | 07/05/2018 4:31 PM | | | | | PDT | | + + + + + | Pulse | 86 | 07/05/2018 4:31 PM | | | | | PDT | | + + + + + | Temperature | 36 C (96.8 F) | 07/05/2018 1:07 PM | | | | | PDT | | + + + + + | Respiratory Rate | 16 | 07/05/2018 1:07 PM | | | | | PDT | | + + + + + | Oxygen Saturation | 96% | 07/05/2018 4:31 PM | | | | | PDT | | + + + + + | Inhaled Oxygen | - | - | | | Concentration | | | | + + + + + | Weight | 98 kg (216 lb) | 07/05/2018 1:07 PM | | | | | PDT | | + + + + + | Height | 167.6 cm (5' 6") | 07/05/2018 1:07 PM | | | | | PDT | | + + + + + | Body Mass Index | 34.86 | 07/05/2018 1:07 PM | | | | | PDT [...] as of this encounter Discharge Instructions Instructions Luciano Diana MD - 07/05/2018Get some vdrj-mxo-[id number] Imodium and take 1 tablet after each loose stool up to 8 tablets per 24 hours. Follow-up with PCP or back here in the ED if not showing significant improvement over the n ext 3-5 days, development of high fever, or increasing abdominal pain. Patient to make arrangements for a follow-up colonoscopy within the next 2-3 months. AttachmentsThe following attachments cannot be sent through Care Everywhere.Colitis, Unders maniding (Czech)documented in this encounter Medications at Time of [...] | | | | | | disease, long-term | | | | | | [...] [place] | | | | | | [address] | | | | | | [phone] | | | | | | | | +--------+---------+ + + + | 02/26/ | Office | Urology | Lillie Fowler | | | 2018 | Visit | | LILLIE Lopez [address] | | | | | | [address] | | | | | | [place] | | | | | | [address] | | | | | | [phone] | | | | | | | | +--------+---------+ + + + | 03/16/ | Office | Neurology | Theresa, | | | 2018 | Visit | | SHONDA M[address] | | | | | [address] [place], | | | | | | [place] [address] | | | | | | [phone] | | | | | | | | +--------+---------+ + + + | 04/12/ | Office | Primary Care | Massimo Ramos | | | 2019 | Visit | | MD Fer [address] | | | | | | [place] | | | | | | [address] | | | | | | | | +--------+---------+ + + + | 10/03/ | Office | Neurology | Fabián Carias MD | | | 2019 | Visit | | [address] | | | | | | [place] | | | | | | [address] | | | | | | | | +--------+---------+ + + + + +------+--------+ + + | Name | Type | Priori | Associated Diagnoses | Date/Time | | | | ty | | | + +------+--------+ + + | ED INFORMATION | BRIT | Routin | | 07/05/2018 12:58 PM | | EXCHANGE | | e | | PDT | + +------+--------+ + + | ED INFORMATION | BRIT | Routin | | 07/05/2018 12:58 PM | | EXCHANGE | | e [...] | | | care | | | Clinic Clerk-C | | | | | | [...] | | | care | | | Clinic Clerk-C | | | | | | [...] | | | care | | | Clinic Clerk-C | | | | | | [...] | | | care | | | Clinic Clerk-C | | | | | | [...] + | URINALYSIS WITH | STAT | 07/05/2018 | | Results for this | | MICROSCOPIC WITH | | 3:58 PM | | procedure are in the | | CULTURE IF INDICATED | | PDT | | results section. | + +--------+ + + + | CT ABDOMEN PELVIS W | STAT | 07/05/2018 | | Results for this | | CONTRAST | | 3:16 PM | | procedure are in the | | | | PDT | | results section. | + +--------+ + + + | SLIDE REVIEW, | Routin | 07/05/2018 | | Results for this | | PERIPHERAL SMEAR | e | 1:40 PM | | procedure are in the | | | | PDT | | results section. | + +--------+ + + + | CBC WITH | STAT | 07/05/2018 | | Results for this | | DIFFERENTIAL | | 1:40 PM | | procedure are in the | | | | PDT | | results section. | + +--------+ + + + | COMPREHENSIVE | STAT | 07/05/2018 | | Results for this | | METABOLIC PANEL | | 1:40 PM | | procedure are in the | | | | PDT | | results section. | + +--------+ + + + | ED INFORMATION | Routin | 07/05/2018 | | | | EXCHANGE | e | 12:58 PM | | | | | | PDT | | | + +--------+ + + + +---+--------+ | | | | | Proced | | | ure | | | Note - | | | Louise, | | | Lab In | | | | | | Hlseve | | | n - | | | | | | 2018 | | | 12:59 | | | PM PDT | | [...] | | | ON? | | | | | | 9 | | | 12:57? | | | [facility], | | | [facility] | | | H | | | J?MRN: | | | | | | [id number] | | | [id number] | | | riteri | | | [...] | | Hospit | | | al 10 | | | Total | | | 10 | | | Note: | | | [...] | | | int | | | Mar | | | 31, | | | 2019 | | | [facility] | | | [facility] | | [facility] [place] | | [place] | | | [place] | | | Emerge | | | ncy | | | | | | [place] | | | ea | | | Feb | | | [...] | | | [place] | | | [facility] [place] | | | al | | | [...] | | | [place] | | | [facility] [place] | | | al | | | [...] | | | [place] | | | Y | | | Primar | | | [...] | | | ent/e5 | | | [id number] | | | -[id number] | | | [...] | | m | +---+--------+ + +--------+ +---+---+ | ED INFORMATION | Routin | 07/05/2018 | | | | EXCHANGE | e | 12:58 PM | | | | | | PDT | | | + +--------+ +---+---+ +---+--------+ | | | | | Proced | | | ure | | | Note - | | | Louise, | | | Lab In | | | | | | Hlseve | | | n - | | | 07/05/ | | | 2018 | | | 12:59 | | | PM PDT | | [...] | | | ON? | | | 31/201 | | | 9 | | | 12:57? | | | [facility], | | | [facility] | | | H | | | J?MRN: | | | | | | [id number] | | | [id number] | | | riteri | | | [...] | | Hospit | | | al 10 | | | Total | | | 10 | | | Note: | | | [...] | | | int | | | Mar | | | 31, | | | 2019 | | | [facility] | | | [facility] | | | [facility] | | | [place] | | | [place] | | | Emerge | | | ncy | | | | | | [place] | | | ea | | | Feb | | | [...] | | | [place] | | | [facility] [place] | | | al | | | [...] | | | [place] | | | [facility] [place] | | | al | | | [...] | | | [place]AN[place] | | | Y | | | Primar | | | [...] | | | ent/e5 | | | [id number] | | | -[id number] | | | [...] Urinalysis with Microscopic with Culture if Indicated (07/05/2018 3:58 PM PDT) + + + + + [...] - 1.030 | [facility] | | | [place] | | | [facility] | | | [...] + + + | Leukocyte | 25 ojny/uL (A) | Negative | [facility] | | [...] + + | [facility] | [address] | [place] [address] | [phone] | | [facility] | | | | + + + + + CT Abdomen Pelvis w Contrast (07/05/2018 3:16 PM PDT) + + | Specimen | + + | | + + + + + | Impressions | Performed At | + + + | IMPRESSION: 1. Thickening apparent at the rectosigmoid colon wall. | [facility] | | This finding could relate to infectious, inflammatory, or neoplastic | | | process. Colonoscopy recommended. 2. Diverticulosis without | | | evidence of diverticulitis. 3. Evidence of prior bowel surgery as | | | detailed above. 4. Atherosclerosis coronary arteries. 5. | | | Emphysematous changes. 6. Small hiatal hernia. 7. Hypoattenuating | | | lesion at the pancreatic head/body region. 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 Gastroenterology consult recommended. 8. Disc | | | and facet degenerative changes lumbar spine. Posterior projecting | | | endplate osteophyte is present at several lumbar levels resulting in | | | canal narrowing. No prior head no cracking and/or with hay . | | | Dictated by: Troy Lawrence | | + + + + + + | Narrative | Performed At | + + + | EXAMINATION: CT ABDOMEN PELVIS W CONTRAST HISTORY: [facility] | [facility] | | (ADULT) COMPARISON STUDY: CT thorax 05/27/2018. CT chest | | | abdomen pelvis 12/25/2016. TECHNIQUE: 5 mm axial slices were | | | acquired through the abdomen and pelvis with contrast. DOSE | | | REPORT: DLP is 910.73 mGy-cm automated exposure control was utilized. | | | FINDINGS: Genitourinary: Right renal 1.8 cm cyst redemonstrated. | | | Contrast media is present within the ureters and renal pelvis which | | | limits evaluation for calcified calculi. No hydronephrosis, or | | | solid enhancing renal lesions seen. No focal bladder wall | | | thickening. Prostate volume is unremarkable.. Gastrointestinal: | | | Wall thickening evident at the rectosigmoid colon with mild mucosal | | | enhancement. This finding best seen on image 288. Evidence of | | | colon anastomosis sigmoid region. Diverticulosis present without | | | diverticulitis. Anastomosis noted at the right abdomen involving | | | the distal small bowel. Fluid-filled loops of nondilated small bowel | | | are present. The gallbladder is absent. Mild hypoattenuation | | | without mass effect at the right liver adjacent to the falciform | | | ligament compatible with fatty infiltration. Spleen volume is | | | normal. Small hiatal hernia present. At the pancreatic head/body | | | a rounded hypoattenuating 11 mm lesion is present. On the 2017 | | | study an approximate 8 mm hypoattenuating lesion was present in this | | | region.. No pancreatic ductal dilatation is seen. Adrenal glands | | | appear unremarkable. Stomach is nondistended. Musculoskeletal: | | | Multilevel disc and facet degenerative changes lumbar spine present. | | | Posteriorly projecting endplate osteophyte noted at several levels | | | resulting in canal narrowing. No acute bone finding. No lytic or | | | blastic bone lesions.. Retroperitoneum: Atherosclerosis of aorta | | | without aneurysm. No adenopathy.. Lung base: Heart size normal. | | | Atherosclerosis coronary arteries present. Emphysematous changes | | | demonstrated.. | | + + + + + | Procedure Note | + + | Louise, Rad Results In - 07/05/2018 3:50 PM PDT EXAMINATION: CT ABDOMEN PELVIS W | | CONTRASTHISTORY:[facility] (ADULT)COMPARISON STUDY:CT thorax 05/27/2018. CT chest abdomen | | pelvis 12/25/2016.TECHNIQUE:5 mm axial slices were acquired through the abdomen and | | pelvis with contrast.DOSE REPORT:DLP is 910.73 mGy-cm automated exposure control was | | utilized.FINDINGS:Genitourinary: Right renal 1.8 cm cyst redemonstrated. Contrast media | | is present within the ureters and renal pelvis which limits evaluation for calcified | | calculi. No hydronephrosis, or solid enhancing renal lesions seen. No focal bladder | | wall thickening. Prostate volume is unremarkable..Gastrointestinal: Wall thickening | | evident at the rectosigmoid colon with mild mucosal enhancement. This finding best seen | | on image 288. Evidence of colon anastomosis sigmoid region. Diverticulosis present | | without diverticulitis. Anastomosis noted at the right abdomen involving the distal | | small bowel. Fluid-filled loops of nondilated small bowel are present.The gallbladder | | is absent. Mild hypoattenuation without mass effect at the right liver adjacent to the | | falciform ligament compatible with fatty infiltration. Spleen volume is normal. Small | | hiatal hernia present.At the pancreatic head/body a rounded hypoattenuating 11 mm lesion | | is present. On the 2017 study an approximate 8 mm hypoattenuating lesion was present | | in this region.. No pancreatic ductal dilatation is seen.Adrenal glands appear | | unremarkable. Stomach is nondistended.Musculoskeletal: Multilevel disc and facet | | degenerative changes lumbar spine present. Posteriorly projecting endplate osteophyte | | noted at several levels resulting in canal narrowing. No acute bone finding. No lytic | | or blastic bone lesions..Retroperitoneum: Atherosclerosis of aorta without aneurysm. No | | adenopathy..Lung base: Heart size normal. Atherosclerosis coronary arteries present. | | Emphysematous changes demonstrated..IMPRESSION: IMPRESSION:1. Thickening apparent at the | | rectosigmoid colon wall. This finding could relate to infectious, inflammatory, or | | neoplastic process. Colonoscopy recommended.2. Diverticulosis without evidence of | | diverticulitis.3. Evidence of prior bowel surgery as detailed above.4. Atherosclerosis | | coronary arteries.5. Emphysematous changes.6. Small hiatal hernia.7. Hypoattenuating | | lesion at the pancreatic head/body region. 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 | | Gastroenterology consult recommended.8. Disc and facet degenerative changes lumbar | | spine. Posterior projecting endplate osteophyte is present at several lumbar levels | | resulting in canal narrowing. No prior head no cracking and/or with hay.Dictated by: | | Troy Lawrence | | | |Lung base: Heart size normal. Atherosclerosis coronary arteries present. Emphysematous ch anges demonstrated.. | | | |IMPRESSION: | |IMPRESSION: | |1. Thickening apparent at the rectosigmoid colon wall. This finding could relate to infect ious, inflammatory, or neoplastic process. Colonoscopy recommended. | |2. Diverticulosis without evidence of diverticulitis. | |3. Evidence of prior bowel surgery as detailed above. | |4. Atherosclerosis coronary arteries. | |5. Emphysematous changes. | |6. Small hiatal hernia. | |7. Hypoattenuating lesion at the pancreatic head/body region. 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 Gastroenterology consult recommended. | |8. Disc and facet degenerative changes lumbar spine. Posterior projecting endplate osteoph yte is present at several lumbar levels resulting in canal narrowing. No prior head no crac yamil and/or with hay | | | |. | | | |Dictated by: Troy Lawrence | | | | | + + + +---------+ + + | Performing | Address | City/State/Zipcode | Phone Number | | Organization | | | | + +---------+ + + | [facility] | | | | + +---------+ + + Slide Review, Peripheral Smear (07/05/2018 1:40 PM PDT) + + + + + [...] + + | [facility] | [address] | [place] [address] | [phone] | | [facility] | | | | + + + + + Comprehensive Metabolic Panel (07/05/2018 1:40 PM PDT) + + + + + [...] + + + + | Glucose | 248 (H) | 70 - 110 mg/dL | [...] + + + + | Creatinine | 1.32 [...] | mL/min/1.73m2 | [facility] | | | [place] | [facility],ESTIMATED | | [facility] | | | | mL/min/1.41y7Behb than | | LABORATORY | | | [...] + + | Calcium | 9.8 | 8.3 - 10.0 | [facility] | | | | | mg/dL | [facility] | | | | [facility] | | | | | | [facility] | | + + + + + + | Albumin | 4.9 (H) | 3.0 - 4.5 g/dL | [facility] [...] + + + + | Total | 8.9 (H) | 6.6 - 8.5 g/dL | [facility] | | | Protein | | | [facility] | | | | | | [facility] | | | | | | LAB[facility]ATORY | | + + + + + + | AST | 42 (H) | 0 - 38 U/L | [facility] | | | | | | [facility] | | | | [facility] | | | | | | [facility] | | + + + + + + | ALT | 56 | 16 - 63 U/L | [facility] [...] + + + + | BUN/Creatin | 23.5 | 7.0 - 24.0 | [facility] | [...] + + | [facility] | [address] | [place] [address] | [phone] | | [facility] | | | | + + + + + CBC with Differential (07/05/2018 1:40 PM PDT) + + + + + [...] + + + + | RBC | 5.56 | 4.36 - 5.83 | [facility] | | | | | M/uL | [facility] | | | | [facility] | | | | | | [facility] | | + + + + + + | Hemoglobin | 16.7 | 13.1 - 17.4 | [facility] | | | | | g/dL | [facility] | | | | [facility] | | | | | | [facility] | | + + + + + + | Hematocrit | 49.5 | 39.0 - 51.9 % | [facility] | | | | | | [facility] | | | | [facility] | | | | | | [facility] | | + + + + + + | MCV | 89.0 | 82.0 - 96.0 fL | [facility] [...] | MCHC | 33.7 | 32.0 - 36.9 | [facility] | | | | | g/dL | [facility] | | [facility] | [facility] | | | | | | [facility] | | + + + + + + | RDW-CV | 15.2 | 0.0 - 17.0 % | [facility] [...] fL | [facility] | | | | report. | | [facility] | | | | [facility] | | | | | | [facility] | | + + + + + + | % | 63.6 | 42.0 - 76.0 % | [facility] | | | Neutrophils | | | [facility] | [facility] | | | | | | [facility] | | + + + + + + | % | 14.4 (L) | 20.0 - 40.0 % | [facility] | | | Lymphocytes | | | [facility] | [facility] | [facility] | | | | | | [facility] | | + + + + + + | % Monocytes | 18.5 (H) | 3.0 - 13.0 % | [facility] | | | | | | [facility] | | | | | | [facility] | | + + + + + + | % | 2.4 | 0.0 - 7.0 % | [facility] [...] + + + + | Absolute | 8.66 (H) | 2.80 - 7.70 | [facility] | | | Neutrophils | | K/uL | [facility] | | | | [facility] | | | | | | [facility] | | + + + + + + | Absolute | 1.96 | 1.20 - 3.30 | [facility] | | | Lymphocytes | | K/uL | [facility] | | [facility] | [facility] | | | | | | [facility] | | + + + + + + | Absolute | 2.51 (H) | 0.00 - 0.80 | [facility] [...] | Absolute | 0.09 | 0.00 - 0.20 | [facility] | [...] + + | [facility] | [address] | [place] [address] | [phone] | | [facility] | | | | + + + + + documented in this encounter Visit Diagnoses + + | Diagnosis | + + | Enterocolitis - Primary Other and unspecified noninfectious gastroenteritis and | | colitis | + + documented in this encounter Administered Medications + +--------+ +---------+------+------+ | Medication Order | MAR | Action | Dose | Rate | Site | | | Action | Date | | | | + +--------+ +---------+------+------+ | iopamidol (ISOVUE-300) 300 | Given | 07/06/19 | 100 mLs | | | | mg/mL injection 100 mL 100 mL, | | 19 3:16 | | | | | Intravenous, ONCE PRN, Other, | | PM PDT | | | | | Starting 07/05/18 at 1516, For | | | | | | | 1 dose, Cat Scanner | | | | | | + +--------+ +---------+------+------+ +---+---+ | | | +---+---+ + +-------+ +------+---+---+ | loperamide (IMODIUM) capsule 4 | Given | 07/06/19 | 4 mg | | | | mg 4 mg, Oral, ONCE, Tiffany 07/05/18 | | 19 4:26 | | | | | at 1645, For 1 dose | | PM PDT | | | | + +-------+ +------+---+---+ +---+---+ | | | +---+---+ documented in this encounter
--- OUTSIDE RECORDS SUMMARY | ~2019-02-17 | XMS | Encounter Summary ---
Demographics + + + | Address | [address] | | | [place] [address] | + + + | Home Phone [...] Team Providers + +------+ + | Care Yarn Texturing 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 Name | Role | Phone [...] | 2016 | | [facility] | DO [address] [place] | | | | | [facility] [address] | [facility], [place] | | | | | [address] [place], | [address] | | | | | [place] [address] | [phone] | | | | | [phone] | | | +--------+--------+ + + + [...] [place] | | | | | | [address] | | | | | | [phone] | | | | | | | | +--------+---------+ + + + | 02/26/ | Office | Urology | Lillie Fowler | | | 2018 | Visit | | [address] | | | | | | [address] | | | | | | [place] | | | | | | [address] | | | | | | [phone] | | | | | | | | +--------+---------+ + + + | 03/16/ | Office | Neurology | Theresa, | | | 2018 | Visit | | SH[address]DA [address] | | | | | [address] [place], | | | | | | [place] [address] | | | | | | [phone] | | | | | | | | +--------+---------+ + + + | 04/12/ | Office | Primary Care | Massimo Ramos | | | 2019 | Visit | | MD Fer [address] | | | | | | [place] | | | | | | [address] | | | | | | | | +--------+---------+ + + + | 10/03/ | Office | Neurology | Fabián Carias MD | | | 2019 | Visit | | [address] | | | | | | [place] | | | | | | [address] | | | | | | | [...] | | care | | | Retail Customer Service Specialist-C | | | | | | [...] | | care | | | Retail Customer Service Specialist-C | | | | | | [...] | | care | | | Retail Customer Service Specialist-C | | | | | | [...] | | care | | | Retail Customer Service Specialist-C | | | | | | | linical | + +--------+ +---+-----+ + + + | Note: Pt will | | check CBG's daily x1 | | Pt will take Lantis as | | prescribed | + + documented as of this encounter Visit Diagnoses Not on filedocumented in this encounter"
--- OUTSIDE RECORDS SUMMARY | ~2019-02-17 | XMS | Encounter Summary ---
Demographics + + + | Address | [address] | | | [place] [address] | + + + | Home Phone [...] Providers + +------+ + | Care Master Brewer Name | Role | Phone | + +------+ + | Horacio Silvestre DO | PCP | | + +------+ + Reason for Visit + + + | Reason | Comments | + + + | Follow-up | CVA/post hospital | + + + Evaluate & Treat (Routine) + +--------+ + + + + | Status | Reason | Specialty | Diagnoses / | Referred By | Referred To | | | | | Procedures | Contact | Contact | + +--------+ + + + + | Authorized | | Neurology | Diagnoses | [place] | Carias, | | | | | Low back | [place] [facility] | Jalyn Panda MD | | | | | pain | MEDICAL | [address] | | | | | Unspecified | [address] | [place] | | | | | mental | [place] | [place] | | | | | disorder due | BLDG [address] RM | [address] Phone: | | | | | to known | [address] [place] | [phone] | | | | | physiologica | [place] | Fax: | | | | | l condition | [address] | [phone] | | | | | Unspecified | Phone: | | | | | | | [phone] | | | | | | abnormalitie | Fax: | | | | | | s of gait | [phone] | | | | | | and mobility | | | + +--------+ + + + + Encounter Details +--------+---------+ + + + | Date | Type | Department | Care Team | Description | +--------+---------+ + + + | 11/23/ | Office | [facility] | Jalyn Carias MD | Chronic low back | | 2019 | Visit | [facility] | [address] [place] | pain without | | | | CLINIC [address] | [place] | sciatica, | | | | DR [place], | [address] | unspecified back | | | | [place] [address] | | pain laterality | | | | [phone] | | (Primary Dx); Sprain | | | | | | of ligaments of | | | | | | lumbar spine, | | | | | | sequela ; | | | | | | Uncontrolled type 2 | | | | | | diabetes mellitus | | | | | | with hyperglycemia | | | | | | ([facility]) | +--------+---------+ + + + Social History [...] + | Blood Pressure | 130/80 | 11/23/2018 10:35 AM | | | | | PDT | | + + + + + | Pulse | 81 | 11/23/2018 10:35 AM | | | | | PDT | | + + + + + | Temperature | - | - | | + + + + + | Respiratory Rate | 20 | 11/23/2018 10:35 AM | | | | | PDT | | + + + + + | Oxygen Saturation | 90% | 11/23/2018 10:35 AM | | | | | PDT | | + + + + + | Inhaled Oxygen | - | - | | | Concentration | | | | + + + + + | Weight | 87.1 kg (192 lb) | 11/23/2018 10:35 AM | | | | | PDT | | + + + + + | Height | 167.6 cm (5' 6") | 11/23/2018 10:35 AM | | | | | PDT | | + + + + + | Body Mass Index | 30.99 | 11/23/2018 10:35 AM | | | | | PDT [...] Instructions Patient Instructions Jalyn Carias MD - 11/23/2018 11:00 AM PDTFormatting of this note waldo cruz be different from the original. Patient Instructions [facility] Neurology Clinic Dr. Jalyn Carias, Neurologist Date:11/23/2018 Name:Geraldo Mcfadden :..1940 Please schedule next follow up appt with Dr. 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 magazines, perform word find exercises such as cross word puzz le, and scrabble, other puzzle games like [employer], [employer]. Play computer/mobile applications such as [employer] Trigger point injection 2018, @ 11:15 Use a cane for ambulation ASA 325 and Atorvastain 40 mg daily for stroke prophyloaxis Control diabetes Any Questions please call JAMAAL Marroquin or Dr. Carias at [facility] Neurology Clinic General Neck and Back [...] are taking other medicines. You may use ozmt-ynr-twbswit medicine to control pain, unless another pain [...] by your healthcare provider Date Last Reviewed: 10/06/201519993722-3348 [employer]. [address] [place] [address], [place] [address]. All righ ts reserved. This information is [...] teens without first discussing it with your [facility]'s healthcare provider. Ice Ice reduces muscle pain [...] use ice several times a day. Medicines Gpnr-qex-accszpi pain relieversincludeacetaminophen and anti-inflammatory medicines, wh ich [...] a heating p ad. Date Last Reviewed: 09/05/201719990525-[address] [employer] [place] [address]. All righ ts reserved. This information is not intended as a substitute for professional medical care. Always follow your healthcare professional's instructions. Diet: Diabetes Food is an important tool that you can use to control diabetes and stay healthy. Eating wel l-balanced meals in the correct amounts will help you control your blood glucose levels and prevent low blood sugar reactions. It will also help you reduce the health risks of diabetes . There is no one specific diet that is right for everyone with diabetes. But there are gene ral guidelines to follow. A registered dietitian (RD) will create a tailored diet approach t hat s just right for you. He or she will also help you plan healthy meals and snacks. If y ou have any questions, call your dietitian for advice. Guidelines for success Talk with your healthcare provider before starting a diabetes diet or weight loss program. If you haven't talked with a dietitian yet, ask your provider for a referral. The following guidelines can help you succeed: Select foods from the 6 food groups below. Your dietitian will help you find food choice s within each group. He or she will also show you serving sizes and how many servings you ca n have at each meal. ? Grains, beans, and starchy vegetables ? Vegetables ? Fruit ? Milk or yogurt ? Meat, poultry, fish, or tofu ? Healthy fats Check your blood sugar levels as directed by your provider. Take any medicine as prescri bed by your provider. Learn to read food labels and pick the right portion sizes. Eat only the amount of food in your meal plan. Eat about the same amount of food at regu lar times each day. Don t skip meals. Eat meals 4 to 5 hours apart, with snacks in between . Limit alcohol. It raises blood sugar levels. Drink water or calorie-free diet drinks stephanie t use safe sweeteners. Eat less fat to help lower your risk of heart disease. Use nonfat or low-fat dairy produ cts and lean meats. Avoid fried foods. Use cooking oils that are unsaturated, such as olive, canola, or peanut oil. Talk with your dietitian about safe sugar substitutes. Avoid added salt. It can contribute to high blood pressure, which can cause heart diseas e. People with diabetes already have a risk of high blood pressure and heart disease. Stay at a healthy weight. If you need to lose weight, cut down on your portion sizes. Bu t don t skip meals. Exercise is an important part of any weight management program. Talk w ith your provider about an exercise program that s right for you. For more information about the best diet plan for you, talk with a registered dietitian (RD). To find an RD in your area, contact: ? Academy of Nutrition and Dietetics www.eatright.org ? The [place] [employer] [phone] www.diabetes.org Date Last Reviewed: 11/06/201519991947-[address] [employer] [place] [address]. All righ ts reserved. This information is not intended as a substitute for professional medical care. Always follow your healthcare professional's instructions. Understanding Carbohydrates, Fats, and Protein Food is a source of fuel and nourishment for your body. It s also a source of pleasure. H aving diabetes doesn t mean you have to eat special foods or give up desserts. Instead, yo ur dietitian can show you how to plan meals to suit your body. To start, learn how different foods affect blood sugar. Carbohydrates Carbohydrates are the main source of fuel for the body. Carbohydrates raise blood sugar. Ma ny people think carbohydrates are only found in pasta or bread. But carbohydrates are actual ly in many kinds of foods: Sugars occur naturally in foods such as fruit, milk, honey, and molasses. Sugars can als o be added to many foods, from cereals and yogurt to candy and desserts. Sugars raise blood sugar. Starchesare found in bread, cereals, pasta, and dried beans. They re also found in c orn, peas, potatoes, yam, acorn squash, and butternut squash. Starches also raise blood suga r. Fiberis found in foods such as vegetables, fruits, beans, and whole grains. Unlike oth er carbs, fiber isn t digested or absorbed. So it doesn t raise blood sugar. In fact, fi aranza can help keep blood sugar from rising too fast. It also helps keep blood cholesterol at a healthy level. Did you know? Even though carbohydrates raise blood sugar, it s best to have some in every meal. They a re an important part of a healthy diet. Fat Fat is an energy source that can be stored until needed. Fat does not raise blood sugar. Ho wever, it can raise blood cholesterol, increasing the risk of heart disease. Fat is also hig h in calories, which can cause weight gain. Not all types of fat are the same. More Healthy: Monounsaturated fatsare mostly found in vegetable oils, such as olive, canola, and pea nut oils. They are also found in avocados and some nuts. Monounsaturated fats are healthy fo r your heart. That s because they lower LDL (unhealthy) cholesterol. Polyunsaturated fats are mostly found in vegetable oils, such as corn, safflower, and so ybean oils. They are also found in some seeds, nuts, and fish. Polyunsaturated fats lower LD L (unhealthy) cholesterol. So, choosing them instead of saturated fats is healthy for your h eart. Certain unsaturated fats can help lower triglycerides. Less Healthy: Saturated fats are found in animal products, such as meat, poultry, whole milk, lard, an d butter.Saturated fats raise LDL cholesterol and are not healthy for your heart. Hydrogenated oils and trans fats are formed when vegetable oils are processed into solid fats. They are found in many processed foods. Hydrogenated oils and trans fats raise LDL ch olesterol and lower HDL (healthy) cholesterol. They are not healthy for your heart. Protein Protein helps the body build and repair muscle and other tissue. Protein has little or no e ffect on blood sugar. However, many foods that contain protein also contain saturated fat. B y choosing low-fat protein sources, you can get the benefits of protein without the extra fa t: Plant protein is found in dry beans and peas, nuts, and soy products, such as tofu and s oymilk. These sources tend to be cholesterol-free and low in saturated fat. Animal protein is found in fish, poultry, meat, cheese, milk, and eggs. These contain ch olesterol and can be high in saturated fat. Aim for lean, lower-fat choices. Date Last Reviewed: 06/06/201519990043-[address] [employer] [place] [address]. All righ ts reserved. This information is not intended as a substitute for professional medical care. Always follow your healthcare professional's instructions. documented in this encounter Progress Notes Jalyn Carias MD - 11/23/2018 11:00 AM PDT Patient: Geraldo Mcfadden Medical Record: [id number] Date of Services: 11/23/2018 Referring Doctor: Horacio Silvestre DO Chief Complaint: Status post CVA History of Present Illness: Mr. Mcfadden was a 78-year-old right-handed male, seen for neurologic evaluation, recently disc harged in [facility] for status post CVA on November 04, 2018 , with involvement of the right MCA, sheldon etal lobe, thrombotic, nondominant hemisphere, presenting with mild left-sided weakness and recurrent falls. He has stroke risk factors of hypertension, diabetes, dyslipidemia, and an age. He is presently receiving aspirin 325 mg and atorvastatin 40 mg daily for stroke prop hylaxis. He received aggressive PT/OT through [facility] with [facility] ent. He presently tablets with a cane. In addition, he has some evidence of memory dysfunction and advised to keep reading newspap ers, magazines, perform word finding exercises. I advised to start taking multivitamins and vitamin E and B complexes. In the event that his memory worsens will decide to start him o n cholinesterase inhibitors. I advised his and the patient has some evidence of sasha ia, mild, late onset, without behavioral changes Lastly, he complains of significant low back pain, likely due to multilevel degenerative di sease and has been worsening for a past few months. He was given other treatment options rhodes ch as acupuncture treatments, massage therapy, relaxation therapy, ylec-cwq-oisklbr creams a nd patches, CBD, and cortisone shots. Patient prefers to get the cortisone shots as soon as possible was scheduled for December 03, at 11:15 in the morning once his insurance approves. Review of Systems: Denies headache, earache, nasal catarrh, diplopia, blurring of vision, d ysphagia, odynophagia, sore throat, neck masses, hearing loss, chest pain, palpitations, leia rtness of breath, cough, hemoptysis, abdominal pain, diarrhea, constipation, bowel or bladde r dysfunction, hematuria, dysuria, lymphadenopathies, echhymoses, rashes, and homicidal or s uicidal ideations. Current Outpatient Medications Medication Sig Dispense Refill [...] medications for this visit. Allergies Allergen Reactions Ambien [Zolpidem] Anaphylaxis Neurological Examination: Vitals: 11/23/18 1035 BP: 130/80 Pulse: 81 Resp: 20 PainSc: 5 PainLoc: Back MENTAL STATUS: The patient is awake, alert, and oriented to time, place, and person. [facility]. Memory, attention, comprehension, and general fund of knowledge are intact. CRANIAL NERVES: Funduscopy revealed distinct disc margins. [...] PLANTAR RESPONSES: Downgoing bilaterally GAIT: wide-based stance, and was with a cane, unable to tandem gait, Romberg was negative CEREBELLAR EXAMINATION: There is no dysmetria on wznwgt-gk-lxht test. 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 magazines, perform word find exercises such as cross word puzz le, and scrabble, other puzzle games like [employer], [employer]. Play computer/mobile applications such as [employer] and [employer]AMES Trigger point injection 2018, @ 11:15 Use a cane for ambulation ASA 325 and Atorvastain 40 mg daily for stroke prophyloaxis Control diabetes Advised to take vitamin E and B complexes. In event that his cognitive functions worsens, discussed the possibility of cholinesterase inhibitors such as Aricept, etc. Any Questions please call JAMAAL Marroquin or Dr. Carias at [facility] Neurology Clinic Jalyn Carias MD11/23/201811:05 Electronically signed NOTE: Part of this report was transcribed using voice recognition software. Every effort was made to ensure accuracy. However, inadvertent computerize children's librarian errors may be present documented in this [...] [place] | | | | | | [address] | | | | | | [phone] | | | | | | | | +--------+---------+ + + + | 02/26/ | Office | Urology | Lillie Fowler | | | 2018 | Visit | | LILLIE Lopez [address] | | | | | | [address] | | | | | | [place] | | | | | | [address] | | | | | | [phone] | | | | | | | | +--------+---------+ + + + | 03/16/ | Office | Neurology | Theresa, | | | 2018 | Visit | | SHONDA [address] | | | | | [address] [place], | | | | | | [place] [address] | | | | | | [phone] | | | | | | | | +--------+---------+ + + + | 04/12/ | Office | Primary Care | Massimo Ramos | | | 2019 | Visit | | MD Fer [address] | | | | | | [place] | | | | | | [address] | | | | | | | | +--------+---------+ + + + | 10/03/ | Office | Neurology | Jalyn Carias MD | | | 2019 | Visit | | [address] | | | | | | [place] | | | | | | [address] | | | | | | | [...] | | | care | | | Sonoscope Operator-C | | | | | | [...] | | | care | | | Sonoscope Operator-C | | | | | | [...] | | | care | | | Sonoscope Operator-C | | | | | | [...] | | | care | | | Sonoscope Operator-C | | | | | | | linical | + +--------+ +---+-----+ + + + | Note: Pt will | | check CBG's daily x1 | | Pt will take Lantis as | | prescribed | + + documented as of this encounter Results Trigger Point Injection Procedure (12/03/2018 11:15 AM [...] JALYN CARIAS M.D. | | | Neurologist [phone] Electronically signed NOTE: Part of | | | this report was transcribed using voice recognition | | | software. Every effort was made to ensure | | | accuracy. However, inadvertent computerize | | | children's librarian errors may be present | | + + + documented in this encounter Visit Diagnoses + + | Diagnosis | + + | Chronic low back pain without sciatica, unspecified back pain laterality - Primary | + + | Sprain of ligaments of lumbar spine, sequela | + + | Uncontrolled type 2 diabetes mellitus with hyperglycemia (HCC) | + + documented in this encounter Additional Health Concerns + + + + | Infection | Noted Time | Resolved Time | + + + + | Methicillin-resistant Staphylococcus aureus | 07/20/2018 4:00 PM | | | | PDT | | + + + + documented as of this encounter
--- OUTSIDE RECORDS SUMMARY | ~2019-02-17 | XMS | Encounter Summary ---
Demographics + + + | Address | [address] | | | [place] [address] | + + + | Home Phone [...] Team Providers + +------+ + | Care Criminal Justice Faculty Name | Role | Phone | + [...] Medication Refill | | 2019 | | [facility] | DO [address] [place] | | | | | [facility] [address] | [facility] [place] | | | | | [address] [place], | [address] | | | | | [place] [address] | [phone] | | | | | [phone] | | | +--------+ + + + [...] [place] | | | | | | [address] | | | | | | [phone] | | | | | | | | +--------+---------+ + + + | 02/26/ | Office | Urology | Lillie Fowler | | | 2018 | Visit | | LILLIE Lopez [address] | | | | | | [address] | | | | | | [place], [place] | | | | | | [address] | | | | | | [phone] | | | | | | | | +--------+---------+ + + + | 03/16/ | Office | Neurology | Theresa, | | | 2018 | Visit | | SH[address]DA [address] | | | | [address] [place], | | | | | | [place] [address] | | | | | | [phone] | | | | | | | | +--------+---------+ + + + | 04/12/ | Office | Primary Care | Massimo Ramos Pedro Luis | | | 2019 | Visit | | MD Fer [address] | | | | | | [place] | | | | | | [address] | | | | | | | | +--------+---------+ + + + | 10/03/ | Office | Neurology | Fabián Carias MD | | | 2019 | Visit | | [address] | | | | | | [place] | | | | | | [address] | | | | | | | [...] | | care | | | Senior Net Developer-C | | | | | | [...] | | care | | | Senior Net Developer-C | | | | | | [...] | | care | | | Senior Net Developer-C | | | | | | [...] | | care | | | Senior Net Developer-C | | | | | | [...]
--- OUTSIDE RECORDS SUMMARY | ~2019-02-17 | XMS | Encounter Summary ---
Demographics + + + | Address | [address] | | | [place] [address] | + + + | Home Phone [...] Team Providers + +------+ + | Care Floor Coverings Installer Name | Role | Phone | [...] | | [address] [place], | [address] | | | | | [place] [address] | [phone] | | | | | [phone] | | | +--------+ + + + [...] [place] | | | | | | [address] | | | | | | [phone] | | | | | | | | +--------+---------+ + + + | 02/26/ | Office | Urology | Lillie Fowler | | | 2018 | Visit | | LILLIE Lopez [address] | | | | | | [place], [place] | | | | | | [address] | | | | | | [phone] | | | | | | | | +--------+---------+ + + + | 03/16/ | Office | Neurology | Theresa, | | | 2018 | Visit | | SHONDA [address] | | | | [address] [place], | | | | | | [place] [address] | | | | | | [phone] | | | | | | | | +--------+---------+ + + + | 04/12/ | Office | Primary Care | Massimo Ramos | | | 2019 | Visit | | MD Fer [address] | | | | | | [address] [place], [place] | | | | | | [address] | | | | | | | | +--------+---------+ + + + | 10/03/ | Office | Neurology | Fabián Carias MD | | | 2019 | Visit | | [address] | | | | | | [place] | | | | | | [address] | | | | | | | [...] | | | care | | | Program Rep-C | | | | | | | [...] | | | care | | | Program Rep-C | | | | | | | [...] | | | care | | | Program Rep-C | | | | | | | [...] | | | care | | | Program Rep-C | | | | | | | linical | + +--------+ +---+-----+ + + + | Note: Pt will | | check CBG's daily x1 | | Pt will take Lantis as | | prescribed | + + documented as of this encounter Visit Diagnoses Not on filedocumented in this encounter"
--- OUTSIDE RECORDS SUMMARY | ~2019-02-17 | XMS | Encounter Summary ---
Demographics + + + | Address | [address] | | | [place] [address] | + + + | Home Phone [...] Team Providers + +------+ + | Care Materials Management Supervisor Name | Role | Phone | [...] read by | [place] | [place] [address] | | | | | his 2pm appt | [place], [place] | Phone: | | | | | with | [address] | [phone] | | | | | neurology. | Phone: | Fax: | | | | | tkm 07/20/18 | [phone] | [phone] | | | | | [place] Auth#: | Fax: | | | | | | [id number] | [phone] | | | | | | Valid [...] + | 07/21/ | Hospital | [place] [facility] | Fabián Carias MD | Syncope, unspecified | | 2019 | Encounter | Hospital Ultrasound | [address] | syncope type | | | | [address] [place] | [place], [place] | | | | | [place], [place] | [address] | | | | | [address] | | | | | | [phone] | | | +--------+ + + + [...] [place] | | | | | | [address] | | | | | | [phone] | | | | | | | | +--------+---------+ + + + | 02/26/ | Office | Urology | Malcolm Lillie | | | 2018 | Visit | | LILLIE Lopez [address] | | | | | [address] | | | | | | [place], [place] | | | | | | [address] | | | | | | [phone] | | | | | | | | +--------+---------+ + + + | 03/16/ | Office | Neurology | Theresa, | | | 2018 | Visit | | SHONDA M[address] | | | | | [address] [place], | | | | | | [place] [address] | | | | | | [phone] | | | | | | | | +--------+---------+ + + + | 04/12/ | Office | Primary Care | Massimo Ramos | | | 2019 | Visit | | MD Fer [address] | | | | | | [address] [place], [place] | | | | | | [address] | | | | | | | | +--------+---------+ + + + | 10/03/ | Office | Neurology | Fabián Carias MD | | | 2019 | Visit | | [address] | | | | | | [place] | | | | | | [address] | | | | | | | [...] | | | care | | | Sharepoint Trainer-C | | | | | | [...] | | | care | | | Sharepoint Trainer-C | | | | | | [...] | | | care | | | Sharepoint Trainer-C | | | | | | [...] | | | care | | | Sharepoint Trainer-C | | | | | | [...]
--- OUTSIDE RECORDS SUMMARY | ~2019-02-17 | XMS | Encounter Summary ---
Demographics + + + | Address | [address] | | | [place] [address] | + + + | Home Phone [...] Team Providers + +------+ + | Care Exhibit Designer Name | Role | Phone | [...] | Visit | [facility] | Jan, OPENSTACK DEVELOPER [address] | (Primary Dx); | | | | [facility] [address] | [address] [place] | Cellulitis of right | | | | [address] [place], | [place] [address] | foot | | | | [place] [address] | [phone] | | | | | [phone] | | | +--------+---------+ + + + [...] encounter Patient Instructions Patient Instructions Jan Reilly, OPENSTACK DEVELOPER - 11/20/2017 8:22 AM PDT Cellulitis Cellulitis [...] 2 days on antibiotics Date Last Reviewed: 12/07/201519996563-2496 [employer]. [address] [place] [address]. All righ ts reserved. This information is [...] made to ensure accuracy. However, inadvertent computerized ram car operator errors may be pre sent documented in [...] [place] | | | | | | [address] | | | | | | [phone] | | | | | | | | +--------+---------+ + + + | 02/26/ | Office | Urology | Lillie Fowler | | | 2018 | Visit | | [address] | | | | | | [address] | | | | | | [place] | | | | | | [address] | | | | | | [phone] | | | | | | | | +--------+---------+ + + + | 03/16/ | Office | Neurology | Theresa, | | | 2018 | Visit | | [address] | | | | | | [address] [place], | | | | | | [place] [address] | | | | | | [phone] | | | | | | | | +--------+---------+ + + + | 04/12/ | Office | Primary Care | Massimo Ramos | | | 2019 | Visit | | MD [address] | | | | | | [address] [place], [place] | | | | | | [address] | | | | | | | | +--------+---------+ + + + | 10/03/ | Office | Neurology | Fabián Carias MD | | | 2019 | Visit | | [address] | | | | | | [place] | | | | | | [address] | | | | | | | [...] | | | care | | | Volunteer Firefighter-C | | | | | | | [...] | | | care | | | Volunteer Firefighter-C | | | | | | | [...] | | | care | | | Volunteer Firefighter-C | | | | | | | [...] | | | care | | | Volunteer Firefighter-C | | | | | | | [...]
--- OUTSIDE RECORDS SUMMARY | ~2019-02-17 | XMS | Encounter Summary ---
Demographics + + + | Address | [address] | | | [place] [address] | + + + | Home Phone [...] Team Providers + +------+ + | Care Apprenticeship Training Representative Name | Role | Phone | [...] | | | | tient visit | [place] [address] | [address] | | | | | est | [place] | [place] | | | | | [address], | [address] | [address] | | | | | Authorized | [address] | Phone: | | | | | For any | [place], [place] | [phone] | | | | | clinically | [address] | Fax: | | | | | necessary | Phone: | [phone] | | | | | Visits for | [phone] | | | | | | 365 days | Fax: | | | | | | AUTH NO: | [phone] | | | | | | [phone] | | | +--------+--------+ + + + + Encounter Details +--------+---------+ + + + | Date | Type | Department | Care Team | Description | +--------+---------+ + + + | 04/28/ | Office | [place] [facility] | Faraz Tejada, | Abdominal pain, | | 2019 | Visit | [facility] | DNP [address] | chronic, left lower | | | | MEDICAL CL[facility] | [place] [address] | quadrant (Primary | | | | [address] [place], | [phone] | Dx); History of | | | | [place] [address] | | ventral hernia | | | | [phone] | | repair | +--------+---------+ + + [...] of this encounter Progress Notes Faraz Tejada, DNP - 04/28/2018 3:30 PM PSTFormatting of [...] [place] | | | | | | [address] | | | | | | [phone] | | | | | | | | +--------+---------+ + + + | 02/26/ | Office | Urology | Lillie Fowler | | | 2018 | Visit | | [address] | | | | | | [address] | | | | | | [place] | | | | | | [address] | | | | | | [phone] | | | | | | | | +--------+---------+ + + + | 03/16/ | Office | Neurology | Theresa, | | | 2018 | Visit | | [address] | | | | | | [address] [place], | | | | | | [place] [address] | | | | | | [phone] | | | | | | | | +--------+---------+ + + + | 04/12/ | Office | Primary Care | Massimo Ramos | | | 2019 | Visit | | MD [address] | | | | | | [place] | | | | | | [address] | | | | | | | | +--------+---------+ + + + | 10/03/ | Office | Neurology | Fabián Carias MD | | | 2019 | Visit | | [address] | | | | | | [place] | | | | | | [address] | | | | | | | [...] | | care | | | Supervisor Aircraft Cleaning-C | | | | | | | [...] | | care | | | Supervisor Aircraft Cleaning-C | | | | | | | [...] | | care | | | Supervisor Aircraft Cleaning-C | | | | | | | [...] | | care | | | Supervisor Aircraft Cleaning-C | | | | | | | [...]
--- OUTSIDE RECORDS SUMMARY | ~2019-02-17 | XMS | Encounter Summary ---
Demographics + + + | Address | [address] | | | [place] [address] | + + + | Home Phone [...] Providers + +------+ + | Care Director Digital Communications Name | Role | Phone | + [...] | [address] [place], [place] | [place] [address] | | | | | [address] | [phone] | | | | | [phone] | | | +--------+ + + + [...] [place] | | | | | | [address] | | | | | | [phone] | | | | | | | | +--------+---------+ + + + | 02/26/ | Office | Urology | Lillie Fowler | | | 2018 | Visit | | [address] | | | | | | [address] | | | | | | [place] | | | | | | [address] | | | | | | [phone] | | | | | | | | +--------+---------+ + + + | 03/16/ | Office | Neurology | Theresa, | | | 2018 | Visit | | [address] | | | | | | [address] [place], | | | | | | [place] [address] | | | | | | [phone] | | | | | | | | +--------+---------+ + + + | 04/12/ | Office | Primary Care | Massimo Ramos | | | 2019 | Visit | | MD Fer [address] | | | | | | [place] | | | | | | [address] | | | | | | | | +--------+---------+ + + + | 10/03/ | Office | Neurology | Fabián Carias MD | | | 2019 | Visit | | [address] | | | | | | [place] | | | | | | [address] | | | | | | | [...] | | | care | | | Credit Correspondence Clerk-C | | | | | | [...] | | | care | | | Credit Correspondence Clerk-C | | | | | | [...] | | | care | | | Credit Correspondence Clerk-C | | | | | | [...] | | | care | | | Credit Correspondence Clerk-C | | | | | | [...] - 1.030 | EXTERNAL | | | [place], | | | LAB | | | [...] | time of the study. Job No.: [id number] Read By: | | | MASSIMO NUNEZ [...] the time of the study. Job No.: [id number] Read By: | | MASSIMO NUNEZ MD [...] | | | | | |Job No.: [id number] | | | |Read By: MASSIMO NUNEZ MD | | | |Released By: MASSIMO NUNEZ MD | |Date: 07/05/2015 16:04 | | | | | + + documented in this encounter Visit Diagnoses Not on filedocumented in this encounter"
--- OUTSIDE RECORDS SUMMARY | ~2019-02-17 | XMS | Encounter Summary ---
Demographics + + + | Address | [address] | | | [place] [address] | + + + | Home Phone [...] Team Providers + +------+ + | Care Masonry Instructor Name | Role | Phone | + +------+ + | Horacio Sivlestre DO | PCP | | + +------+ [...] | | [facility] [address] | [facility], [place] | | | | | [address] [place], | [address] | | | | | [place] [address] | [phone] | | | | | [phone] | | | +--------+--------+ + + + [...] [place] | | | | | | [address] | | | | | | [phone] | | | | | | | | +--------+---------+ + + + | 02/26/ | Office | Urology | Lillie Fowler | | | 2018 | Visit | | [address] | | | | | | [address] | | | | | | [place], [place] | | | | | | [address] | | | | | | [phone] | | | | | | | | +--------+---------+ + + + | 03/16/ | Office | Neurology | Theresa, | | | 2018 | Visit | | [address] | | | | | | [address] [place], | | | | | | [place] [address] | | | | | | [phone] | | | | | | | | +--------+---------+ + + + | 04/12/ | Office | Primary Care | Massimo Ramos | | | 2019 | Visit | | MD Fer [address] | | | | | | [place] | | | | | | [address] | | | | | | | | +--------+---------+ + + + | 10/03/ | Office | Neurology | Fabián Carias MD | | | 2019 | Visit | | [address] | | | | | | [place] | | | | | | [address] | | | | | | | [...] | | care | | | Lead Fire Protection Engineer-C | | | | | | [...] | | care | | | Lead Fire Protection Engineer-C | | | | | | [...] | | care | | | Lead Fire Protection Engineer-C | | | | | | [...] | | care | | | Lead Fire Protection Engineer-C | | | | | | [...]
--- OUTSIDE RECORDS SUMMARY | ~2019-02-17 | XMS | Encounter Summary ---
Demographics + + + | Address | [address] | | | [place] [address] | + + + | Home Phone [...] Team Providers + +------+ + | Care Pen Tester Name | Role | Phone | [...] [facility] | DO [address] [place] | | | | | [facility] [address] | [place], [place] | | | | | [address] [place], | [address] | | | | | [place] [address] | [phone] | | | | | [phone] | | | +--------+ + + + [...] [place] | | | | | | [address] | | | | | | [phone] | | | | | | | | +--------+---------+ + + + | 02/26/ | Office | Urology | Lillie Fowler | | | 2018 | Visit | | [address] | | | | | | [address] | | | | | | [place] | | | | | | [address] | | | | | | [phone] | | | | | | | | +--------+---------+ + + + | 03/16/ | Office | Neurology | Theresa, | | | 2018 | Visit | | [address] | | | | | | [address] [place], | | | | | | [place] [address] | | | | | | [phone] | | | | | | | | +--------+---------+ + + + | 04/12/ | Office | Primary Care | Massimo Ramos | | | 2019 | Visit | | MD Fer [address] | | | | | | [place] | | | | | | [address] | | | | | | | | +--------+---------+ + + + | 10/03/ | Office | Neurology | Fabián Carias MD | | | 2019 | Visit | | [address] | | | | | | [place] | | | | | | [address] | | | | | | | [...] | | | care | | | Title Manager-C | | | | | | [...] | | | care | | | Title Manager-C | | | | | | [...] | | | care | | | Title Manager-C | | | | | | [...] | | | care | | | Title Manager-C | | | | | | | linical | + +--------+ +---+-----+ + + + | Note: Pt will | | check CBG's daily x1 | | Pt will take Lantis as | | prescribed | + + documented as of this encounter Visit Diagnoses Not on filedocumented in this encounter"
--- OUTSIDE RECORDS SUMMARY | ~2019-02-17 | XMS | Encounter Summary ---
Demographics + + + | Address | [address] | | | [place] [address] | + + + | Home Phone | | + + + | Preferred Language | Unknown | + + + | Marital Status | | + + + | Mormon Affiliation | 1025 | + + + | Race | Unknown | + + + | Ethnic Group | Unknown | + + + Author + + + | Author | [facility] | | | and [place] | + + + | Organization | [facility] | | | [...] Providers + +------+ + | Care Painter Mirror Name | Role | Phone | + [...] | Results | | 2019 | | [facility] | DO [address] | | | | | MEDICAL CL[facility] [address] | [place], [place] | | | | | [address] [place], | [address] | | | | | [place] [address] | [phone] | | | | | [phone] | | | +--------+ + + + [...] [place] | | | | | | [address] | | | | | | [phone] | | | | | | | | +--------+---------+ + + + | 02/26/ | Office | Urology | Lillie Fowler | | | 2018 | Visit | | [address] | | | | | | [address] | | | | | | [place], [place] | | | | | | [address] | | | | | | [phone] | | | | | | | | +--------+---------+ + + + | 03/16/ | Office | Neurology | Theresa, | | | 2018 | Visit | | [address] | | | | | | [address] [place], | | | | | | [place] [address] | | | | | | [phone] | | | | | | | | +--------+---------+ + + + | 04/12/ | Office | Primary Care | Massimo Ramos | | | 2019 | Visit | | MD Fer [address] | | | | | | [place] | | | | | | [address] | | | | | | | | +--------+---------+ + + + | 10/03/ | Office | Neurology | Fabián Carias MD | | | 2019 | Visit | | [address] | | | | | | [place] | | | | | | [address] | | | | | | | [...] | | | care | | | Short Goods Drier-C | | | | | | | [...] | | | care | | | Short Goods Drier-C | | | | | | | [...] | | | care | | | Short Goods Drier-C | | | | | | | [...] | | | care | | | Short Goods Drier-C | | | | | | | [...]
--- OUTSIDE RECORDS SUMMARY | ~2019-02-17 | XMS | Encounter Summary ---
Demographics + + + | Address | [address] | | | [place] [address] | + + + | Home Phone [...] Providers + +------+ + | Care Machine Tool Electrician Name | Role | Phone | + [...] 11/25/ | Telephone | [place] [facility] | Fabián Carias MD | Medication Related | | 2019 | | [facility] | [address] | | | | | CLINIC [address] | [place] | | | | | [address] [place], | [address] | | | | | [place] [address] | | | | | | [phone] | | | +--------+ + + + [...] [place] | | | | | | [address] | | | | | | [phone] | | | | | | | | +--------+---------+ + + + | 02/26/ | Office | Urology | Lillie Fowler | | | 2018 | Visit | | [address] | | | | | | [address] | | | | | | [place], [place] | | | | | | [address] | | | | | | [phone] | | | | | | | | +--------+---------+ + + + | 03/16/ | Office | Neurology | Theresa, | | | 2018 | Visit | | [address] | | | | | | [address] [place], | | | | | | [place] [address] | | | | | | [phone] | | | | | | | | +--------+---------+ + + + | 04/12/ | Office | Primary Care | Massimo Ramos | | | 2019 | Visit | | MD Fer [address] | | | | | | [place] | | | | | | [address] | | | | | | | | +--------+---------+ + + + | 10/03/ | Office | Neurology | Fabián Carias MD | | | 2019 | Visit | | [address] | | | | | | [place] | | | | | | [address] | | | | | | | [...] | | | care | | | Chemical Laboratory Chief-C | | | | | | | [...] | | | care | | | Chemical Laboratory Chief-C | | | | | | | [...] | | | care | | | Chemical Laboratory Chief-C | | | | | | | [...] | | | care | | | Chemical Laboratory Chief-C | | | | | | | [...]
--- OUTSIDE RECORDS SUMMARY | ~2019-02-17 | XMS | Encounter Summary ---
Demographics + + + | Address | [address] | | | [place] [address] | + + + | Home Phone [...] Providers + +------+ + | Care Ultrasound Technologist Name | Role | Phone | + +------+ + | Horacio Silvestre DO | PCP | | + +------+ + Encounter Details +--------+ + + + + | Date | Type | Department | Care Team | Description | +--------+ + + + + | 08/25/ | Hospital | [place] [facility] | Horacio Silvestre, | Panlobular emphysema | | 2018 | Encounter | [facility] | DO [address] | ([facility]) | | | | THERAPY [address] | [place] | | | | | [place], [place] | [address] | | | | | [address] | [phone] | | | | | [phone] | | | +--------+ + + + [...] | | | | | | 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 Results faxed/sent to multi skilled operator for review. Patient discharged in stable condition per patient baseline level. Final/Interpreted results will be scanned into [employer] and sent to Ordering Provider. Electronically signed [...] [place] | | | | | | [address] | | | | | | [phone] | | | | | | | | +--------+---------+ + + + | 02/26/ | Office | Urology | Lillie Fowler | | | 2018 | Visit | | [address] | | | | | | [address] | | | | | | [place], [place] | | | | | | [address] | | | | | | [phone] | | | | | | | | +--------+---------+ + + + | 03/16/ | Office | Neurology | Theresa, | | | 2019 | Visit | | [address] | | | | | | [address] [place], | | | | | | [place] [address] | | | | | | [phone] | | | | | | | | +--------+---------+ + + + | 04/12/ | Office | Primary Care | Massimo Ramos | | | 2019 | Visit | | MD Fer [address] | | | | | | [place] | | | | | | [address] | | | | | | | | +--------+---------+ + + + | 10/03/ | Office | Neurology | Fabián Carias MD | | | 2019 | Visit | | [address] | | | | | | [place] | | | | | | [address] | | | | | | | [...] | | care | | | Manager Cable-C | | | | | | | [...] | | care | | | Manager Cable-C | | | | | | | [...] | | care | | | Manager Cable-C | | | | | | | [...] | | care | | | Manager Cable-C | | | | | | | [...]
--- OUTSIDE RECORDS SUMMARY | ~2019-02-17 | XMS | Encounter Summary ---
Demographics + + + | Address | [address] | | | [place] [address] | + + + | Home Phone [...] Team Providers + +------+ + | Care Can Operator Name | Role | Phone | [...] [facility] | DO [address] [place] | | | | | MEDICAL CL[facility] [address] | [facility], [place] | | | | | [address] [place], | [address] | | | | | [place] [address] | [phone] | | | | | [phone] | | | +--------+ + + + [...] [place] | | | | | | [address] | | | | | | [phone] | | | | | | | | +--------+---------+ + + + | 02/26/ | Office | Urology | Lillie Fowler | | | 2018 | Visit | | [address] | | | | | | [address] | | | | | | [place], [place] | | | | | | [address] | | | | | | [phone] | | | | | | | | +--------+---------+ + + + | 03/16/ | Office | Neurology | Theresa, | | | 2018 | Visit | | [address] | | | | | | [address] [place], | | | | | | [place] [address] | | | | | | [phone] | | | | | | | | +--------+---------+ + + + | 04/12/ | Office | Primary Care | Massimo Ramos | | | 2019 | Visit | | MD Fer [address] | | | | | | [place] | | | | | | [address] | | | | | | | | +--------+---------+ + + + | 10/03/ | Office | Neurology | Fabián Carias MD | | | 2019 | Visit | | [address] | | | | | | [place] | | | | | | [address] | | | | | | | [...] | | | care | | | Powerplant Operator-C | | | | | | [...] | | | care | | | Powerplant Operator-C | | | | | | [...] | | | care | | | Powerplant Operator-C | | | | | | [...] | | | care | | | Powerplant Operator-C | | | | | | [...]
--- OUTSIDE RECORDS SUMMARY | ~2019-02-17 | XMS | Encounter Summary ---
Demographics + + + | Address | [address] | | | [place] [address] | + + + | Home Phone [...] Team Providers + +------+ + | Care Mba Intern Name | Role | Phone | [...] | | | [facility] | [facility], [place] | | | | | [address] [facility], | [address] | | | | | [place] [address] | [phone] | | | | | [phone] | | | +--------+ + + + [...] [place] | | | | | | [address] | | | | | | [phone] | | | | | | | | +--------+---------+ + + + | 02/26/ | Office | Urology | Lillie Fowler | | | 2018 | Visit | | [address] | | | | | | [address] | | | | | | [place], [place] | | | | | | [address] | | | | | | [phone] | | | | | | | | +--------+---------+ + + + | 03/16/ | Office | Neurology | Theresa, | | | 2018 | Visit | | [address] | | | | | | [address] [place], | | | | | | [place] [address] | | | | | | [phone] | | | | | | | | +--------+---------+ + + + | 04/12/ | Office | Primary Care | Massimo Ramos | | | 2019 | Visit | | MD Fer [address] | | | | | | [place] | | | | | | [address] | | | | | | | | +--------+---------+ + + + | 10/03/ | Office | Neurology | Fabián Carias MD | | | 2019 | Visit | | [address] | | | | | | [place] | | | | | | [address] | | | | | | | [...] | | | care | | | Garment Turner-C | | | | | | | [...] | | | care | | | Garment Turner-C | | | | | | | [...] | | | care | | | Garment Turner-C | | | | | | | [...] | | | care | | | Garment Turner-C | | | | | | | [...]
--- OUTSIDE RECORDS SUMMARY | ~2019-02-17 | XMS | Encounter Summary ---
Demographics + + + | Address | [address] | | | [place] [address] | + + + | Home Phone [...] Team Providers + +------+ + | Care Agricultural Produce Packer Name | Role | Phone | [...] + | 10/01/ | Refill | [place] [facility] | Horacio Silvestre, | Medication Refill | | 2017 | | [facility] | [address] | | | | | MEDICAL CLIN[facility] [address] | [facility], [place] | | | | | [address] [place], | [address] | | | | | [place] [address] | [phone] | | | | | [phone] | | | +--------+--------+ + + + [...] [place] | | | | | | [address] | | | | | | [phone] | | | | | | | | +--------+---------+ + + + | 02/26/ | Office | Urology | Lillie Fowler | | | 2018 | Visit | | [address] | | | | | | [address] | | | | | | [place], [place] | | | | | | [address] | | | | | | [phone] | | | | | | | | +--------+---------+ + + + | 03/16/ | Office | Neurology | Theresa, | | | 2018 | Visit | | [address] | | | | | | [address] [place], | | | | | | [place] [address] | | | | | | [phone] | | | | | | | | +--------+---------+ + + + | 04/12/ | Office | Primary Care | Massimo Ramos | | | 2019 | Visit | | MD Fer [address] | | | | | | [place] | | | | | | [address] | | | | | | | | +--------+---------+ + + + | 10/03/ | Office | Neurology | Fabián Carias MD | | | 2019 | Visit | | [address] | | | | | | [place] | | | | | | [address] | | | | | | | [...] | | | care | | | Physical Therapy Director-C | | | | | | [...] | | | care | | | Physical Therapy Director-C | | | | | | [...] | | | care | | | Physical Therapy Director-C | | | | | | [...] | | | care | | | Physical Therapy Director-C | | | | | | | linical | + +--------+ +---+-----+ + + + | Note: Pt will | | check CBG's daily x1 | | Pt will take Lantis as | | prescribed | + + documented as of this encounter Visit Diagnoses Not on filedocumented in this encounter"
--- OUTSIDE RECORDS SUMMARY | ~2019-02-17 | XMS | Encounter Summary ---
Demographics + + + | Address | [address] | | | [place] [address] | + + + | Home Phone [...] Team Providers + +------+ + | Care Elementary Teacher Name | Role | Phone | [...] | Appointment | | 2018 | | [facility] | | | | | | CLINIC [address] | | | | | | [address] [place], | | | | | | [place] [address] | | | | | | [phone] | | | +--------+ + + + [...] [place] | | | | | | [address] | | | | | | [phone] | | | | | | | | +--------+---------+ + + + | 02/26/ | Office | Urology | Lillie Fowler | | | 2018 | Visit | | [address] | | | | | | [address] | | | | | | [place] | | | | | | [address] | | | | | | [phone] | | | | | | | | +--------+---------+ + + + | 03/16/ | Office | Neurology | Theresa, | | | 2018 | Visit | | [address] | | | | | | [address] [place], | | | | | | [place] [address] | | | | | | [phone] | | | | | | | | +--------+---------+ + + + | 04/12/ | Office | Primary Care | Massimo Ramos | | | 2019 | Visit | | MD [address] | | | | | | [place] | | | | | | [address] | | | | | | | | +--------+---------+ + + + | 10/03/ | Office | Neurology | Fabián Carias MD | | | 2019 | Visit | | [address] | | | | | | [place] | | | | | | [address] | | | | | | | [...] | | | care | | | Track Worker-C | | | | | | [...] | | | care | | | Track Worker-C | | | | | | [...] | | | care | | | Track Worker-C | | | | | | [...] | | | care | | | Track Worker-C | | | | | | | linical | + +--------+ +---+-----+ + + + | Note: Pt will | | check CBG's daily x1 | | Pt will take Lantis as | | prescribed | + + documented as of this encounter Visit Diagnoses Not on filedocumented in this encounter"
--- OUTSIDE RECORDS SUMMARY | ~2019-02-17 | XMS | Encounter Summary ---
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, left Current use of beta marly 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 On potassium wasting [...] [place] | | | | | | [address] | | | | | | [phone] | | | | | | | | +--------+---------+ + + + | 02/26/ | Office | Urology | Lillie Fowler | | 2018 | Visit | | LILLIE Lopez [address] | | | | | | [address] | | | | | | [place] | | | | | | [address] | | | | | | [phone] | | | | | | | | +--------+---------+ + + + | 03/16/ | Office | Neurology | Theresa, | | | 2018 | Visit | | [address] | | | | | | [address] [place], | | | | | | [place] [address] | | | | | | [phone] | | | | | | | | +--------+---------+ + + + | 04/12/ | Office | Primary Care | Massimo Ramos | | | 2019 | Visit | | MD Fer [address] | | | | | | [address] [place] | | | | | | [address] | | | | | | | | +--------+---------+ + + + | 10/03/ | Office | Neurology | Fabián Carias MD | | | 2019 | Visit | | [address] | | | | | | [place] | | | | | | [address] | | | | | | | [...] | | care | | | Machine Tailer-C | | | | | | | [...] | | care | | | Machine Tailer-C | | | | | | | [...] | | care | | | Machine Tailer-C | | | | | | | [...] | | care | | | Machine Tailer-C | | | | | | | [...]
--- OUTSIDE RECORDS SUMMARY | ~2019-02-17 | XMS | Encounter Summary ---
Demographics + + + | Address | [address] | | | [place] [address] | + + + | Home Phone [...] + | Author | [facility] | | | and [...] Team Providers + +------+ + | Care Transfer Coordinator Name | Role | Phone | [...] | | | | MANAGEMENT [address] | Cigarette Inspector-Clinical | | | | | [place] [address] | | | | | | [place] | | | | | | [address] | | | | | | [phone] | | | +--------+ + + + [...] [place] | | | | | | [address] | | | | | | [phone] | | | | | | | | +--------+---------+ + + + | 02/26/ | Office | Urology | Lillie Fowler | | | 2018 | Visit | | [address]ILLIE Lopez [address] | | | | | | [address] | | | | | | [place], [place] | | | | | | [address] | | | | | | [phone] | | | | | | | | +--------+---------+ + + + | 03/16/ | Office | Neurology | Theresa, | | | 2018 | Visit | | [address] | | | | | | [address] [place], | | | | | | [place] [address] | | | | | | [phone] | | | | | | | | +--------+---------+ + + + | 04/12/ | Office | Primary Care | Massimo Ramos Pedro Luis | | | 2019 | Visit | | MD Fer [address] | | | | | | [place] | | | | | | [address] | | | | | | | | +--------+---------+ + + + | 10/03/ | Office | Neurology | Fabián Carias MD | | | 2019 | Visit | | [address] | | | | | | [place] | | | | | | [address] | | | | | | | [...] | | | care | | | Cigarette Inspector-C | | | | | | [...] | | | care | | | Cigarette Inspector-C | | | | | | [...] | | | care | | | Cigarette Inspector-C | | | | | | [...] | | | care | | | Cigarette Inspector-C | | | | | | | linical | + +--------+ +---+-----+ + + + | Note: Pt will | | check CBG's daily x1 | | Pt will take Lantis as | | prescribed | + + documented as of this encounter Visit Diagnoses Not on filedocumented in this encounter"
--- OUTSIDE RECORDS SUMMARY | ~2019-02-17 | XMS | Encounter Summary ---
Demographics + + + | Address | [address] | | | [place] [address] | + + + | Home Phone [...] Team Providers + +------+ + | Care Parts Salesperson Name | Role | Phone | + [...] | | | | | [address] [place], | [address] | | | | | [place] [address] | [phone] | | | | | [phone] | | | +--------+ + + + [...] [place] | | | | | | [address] | | | | | | [phone] | | | | | | | | +--------+---------+ + + + | 02/26/ | Office | Urology | Lillie Fowler | | | 2018 | Visit | | [address]ILLIE Lopez [address] | | | | | | [address] | | | | | | [place] | | | | | | [address] | | | | | | [phone] | | | | | | | | +--------+---------+ + + + | 03/16/ | Office | Neurology | Theresa, | | | 2018 | Visit | | [address] | | | | | | [address] [place], | | | | | | [place] [address] | | | | | | [phone] | | | | | | | | +--------+---------+ + + + | 04/12/ | Office | Primary Care | Massimo Ramos | | | 2019 | Visit | | MD Fer [address] | | | | | | [place] | | | | | | [address] | | | | | | | | +--------+---------+ + + + | 10/03/ | Office | Neurology | Fabián Carias MD | | | 2019 | Visit | | [address] | | | | | | [place] | | | | | | [address] | | | | | | | [...] | | | care | | | Electromechanical Equipment Tester-C | | | | | | [...] | | | care | | | Electromechanical Equipment Tester-C | | | | | | [...] | | | care | | | Electromechanical Equipment Tester-C | | | | | | [...] | | | care | | | Electromechanical Equipment Tester-C | | | | | | | linical | + +--------+ +---+-----+ + + + | Note: Pt will | | check CBG's daily x1 | | Pt will take Lantis as | | prescribed | + + documented as of this encounter Visit Diagnoses Not on filedocumented in this encounter"
--- OUTSIDE RECORDS SUMMARY | ~2019-02-17 | XMS | Encounter Summary ---
Demographics + + + | Address | [address] | | | [place] [address] | + + + | Home Phone [...] Team Providers + +------+ + | Care Coater Brake Linings Name | Role | Phone | + [...] | Services | | Chronic low | aFbián Panda, | Fabián Panda MD | | | Required | | back pain | [address] | [address] | | | | | without | [address], | DR, [place] | | | | | sciatica, | [place] | [place], [place] | | | | | unspecified | [place], [place] | [address] Phone: | | | | | back pain | [address] | [phone] | | | | | laterality | Phone: | Fax: | | | | | Other | [phone] | [phone] | | | | | amnesia | Fax: | | | | | | Procedures | [phone] | | | | | | [place] INJECT | | | | | | [...] 02/03/ | Telephone | [facility] [facility] | Fabián Carias MD | Results, Imaging | | 2018 | | HOSPITAL NEUROLOGY | [address] | | | | | CLINIC [address] | [place] | | | | | DR [place], | [address] | | | | | [place] [address] | | | | | | [phone] | | | +--------+ + + + [...] [place] | | | | | | [address] | | | | | | [phone] | | | | | | | | +--------+---------+ + + + | 02/26/ | Office | Urology | Lillie Fowler | | | 2018 | Visit | | [address]IE Lopez [address] | | | | | | [address] | | | | | | [place], [place] | | | | | | [address] | | | | | | [phone] | | | | | | | | +--------+---------+ + + + | 03/16/ | Office | Neurology | Threesa, | | | 2018 | Visit | | [address] | | | | | | [address] [place], | | | | | | [place] [address] | | | | | | [phone] | | | | | | | | +--------+---------+ + + + | 04/12/ | Office | Primary Care | Massimo Ramos | | | 2019 | Visit | | MD Fer [address] | | | | | | [place] | | | | | | [address] | | | | | | | | +--------+---------+ + + + | 10/03/ | Office | Neurology | Fabián Carias MD | | | 2019 | Visit | | [address] | | | | | | [place] | | | | | | [address] | | | | | | | | +--------+---------+ + + + + + +--------+ + + | Name | Type | Priori | Associated Diagnoses | Order Schedule | | | | ty | | | + + +--------+ + + | Trigger Point | Outpatient | Routin | Chronic low back | Ordered: 02/03/2018 | | Injection- Internal | Referral | e | pain without | | | Referral | | | sciatica, | | | [...] | | care | | | Firmware Architect-C | | | | | | [...] | | care | | | Firmware Architect-C | | | | | | [...] | | care | | | Firmware Architect-C | | | | | | [...] | | care | | | Firmware Architect-C | | | | | | [...] pain laterality - Primary | + + documented in this encounter"
--- OUTSIDE RECORDS SUMMARY | ~2019-02-17 | XMS | Encounter Summary ---
Demographics + + + | Address | [address] | | | [place] [address] | + + + | Home Phone [...] Providers + +------+ + | Care Business Trainer Name | Role | Phone | [...] [facility] | CC ADOBE CQ DEVELOPER | | | | | MEDICAL CLIN[facility] [address] | | | | | | [facility] [place], | | | | | | [place] [address] | | | | | | [phone] | | | +--------+--------+ + + + [...] [place] | | | | | | [address] | | | | | | [phone] | | | | | | | | +--------+---------+ + + + | 02/26/ | Office | Urology | Lillie Fowler | | | 2018 | Visit | | [address] | | | | | [address] | | | | | | [place] | | | | | | [address] | | | | | | [phone] | | | | | | | | +--------+---------+ + + + | 03/16/ | Office | Neurology | Theresa, | | | 2018 | Visit | | [address] | | | | | | [address] [place], | | | | | | [place] [address] | | | | | | [phone] | | | | | | | [...] [place] | | | | | | [address] | | | | | | | [...] | | | care | | | Driver Manager-C | | | | | | [...] | | | care | | | Driver Manager-C | | | | | | [...] | | | care | | | Driver Manager-C | | | | | | [...] | | | care | | | Driver Manager-C | | | | | | | linical | + +--------+ +---+-----+ + + + | Note: Pt will | | check CBG's daily x1 | | Pt will take Lantis as | | prescribed | + + documented as of this encounter Visit Diagnoses Not on filedocumented in this encounter"
--- OUTSIDE RECORDS SUMMARY | ~2019-02-17 | XMS | Encounter Summary ---
Demographics + + + | Address | [address] | | | [place] [address] | + + + | Home Phone [...] Team Providers + +------+ + | Care Obgyn Hospitalist Physician Name | Role | Phone | [...] pneumonia | | 2018 | Visit | [facility] | DNP [address] | (Primary Dx); | | | | MEDICAL CLINIC [address] | [place] [address] | Intractable vomiting | | | | [address] [place], | [phone] | with nausea, | | | | [place] [address] | | unspecified vomiting | | | | [phone] | | type; Dysuria | +--------+---------+ + [...] [place] | | | | | | [address] | | | | | | [phone] | | | | | | | | +--------+---------+ + + + | 02/26/ | Office | Urology | Lillie Fowler | | | 2019 | Visit | | LILLIE Lopez [address] | | | | | | [address] | | | | | | [place] | | | | | | [address] | | | | | | [phone] | | | | | | | | +--------+---------+ + + + | 03/16/ | Office | Neurology | Theresa, | | | 2018 | Visit | | [address] | | | | | | [address] [place], | | | | | | [place] [address] | | | | | | [phone] | | | | | | | | +--------+---------+ + + + | 04/12/ | Office | Primary Care | Massimo Ramos | | | 2019 | Visit | | MD Fer [address] | | | | | | [place] | | | | | | [address] | | | | | | | | +--------+---------+ + + + | 10/03/ | Office | Neurology | Fabián Carias MD | | | 2019 | Visit | | [address] | | | | | | [place] | | | | | | [address] | | | | | | | [...] | | | care | | | Resource Room Teacher-C | | | | | | [...] | | | care | | | Resource Room Teacher-C | | | | | | [...] | | | care | | | Resource Room Teacher-C | | | | | | [...] | | | care | | | Resource Room Teacher-C | | | | | | [...] + + | [facility] | [address] | [place] [address] | [phone] | | [facility] | | | [...] + + | [place] [facility] | [address] | [place] [address] | [phone] | | [facility] | | | [...] - 1.030 | [place] | | | [place] | | | [facility] | | | [...] | [address] | [place] [address] | [phone] | | [facility] | | | [...] | mL/min/1.73m2 | [facility] | | | [facility] | RATE,ESTIMATED | | HOSPITAL | | | | mL/min/1.44l6Jgwo than | | REGIONAL | | | [...] + + | [place] [facility] | [address] | [place] [address] | [phone] | | [facility] | | | [...] + + | [place] [facility] | [address] | [place] [address] | [phone] | | [facility] | | | | | [facility] | | | | + + [...]
--- OUTSIDE RECORDS SUMMARY | ~2019-02-17 | XMS | Encounter Summary ---
Demographics + + + | Address | [address] | | | [place] [address] | + + + | Home Phone [...] Team Providers + +------+ + | Care Carbonation Equipment Operator Name | Role | Phone [...] | | | | [place], [place] | [place] [address] | | | | | [address] | [phone] | | | | | [phone] | | | +--------+ + + + [...] [place] | | | | | | [address] | | | | | | [phone] | | | | | | | | +--------+---------+ + + + | 02/26/ | Office | Urology | Lillie Fowler | | | 2018 | Visit | | [address]ILLIE Lopez [address] | | | | | | [address] | | | | | | [place], [place] | | | | | | [address] | | | | | | [phone] | | | | | | | | +--------+---------+ + + + | 03/16/ | Office | Neurology | Theresa, | | | 2018 | Visit | | [address] | | | | | | [address] [place], | | | | | | [place] [address] | | | | | | [phone] | | | | | | | | +--------+---------+ + + + | 04/12/ | Office | Primary Care | Massimo Ramos | | | 2019 | Visit | | MD Fer [address] | | | | | | [place] | | | | | | [address] | | | | | | | | +--------+---------+ + + + | 10/03/ | Office | Neurology | Fabián Carias MD | | | 2019 | Visit | | [address] | | | | | | [place] | | | | | | [address] | | | | | | | [...] | | care | | | Commercial Intelligence Manager-C | | | | | | [...] | | care | | | Commercial Intelligence Manager-C | | | | | | [...] | | care | | | Commercial Intelligence Manager-C | | | | | | [...] | | care | | | Commercial Intelligence Manager-C | | | | | | | linical | + +--------+ +---+-----+ + + + | Note: Pt will | | check CBG's daily x1 | | Pt will take Lantis as | | prescribed | + + documented as of this encounter Visit Diagnoses Not on filedocumented in this encounter"
--- OUTSIDE RECORDS SUMMARY | ~2019-02-17 | XMS | Encounter Summary ---
Demographics + + + | Address | [address] | | | [place] [address] | + + + | Home Phone | | + + + | Preferred Language | Unknown | + + + | Marital Status | | + + + | Jain Affiliation | 1025 | + + + | Race | Unknown | + + + | Ethnic Group | Unknown | + + + Author + + + | Author | [facility] | | | and [place] | + + + | Organization | [facility] | [...] Team Providers + +------+ + | Care Document Controller Name | Role | Phone | + [...] 2016 | Encounter | HOSPITAL EMERGENCY | DOCK GRADER [address] | | | | | CENTER [address] | [place] | | | | | [place] | [address] | | | | | [address] | | | | | | [phone] | | | +--------+ + + + [...] [place] | | | | | | [address] | | | | | | [phone] | | | | | | | | +--------+---------+ + + + | 02/26/ | Office | Urology | Lillie Fowler | | | 2018 | Visit | | LILLIE Lopez [address] | | | | | | [address] | | | | | | [place] | | | | | | [address] | | | | | | [phone] | | | | | | | | +--------+---------+ + + + | 03/16/ | Office | Neurology | Theresa, | | | 2018 | Visit | | [address] | | | | | | [address] [place], | | | | | | [place] [address] | | | | | | [phone] | | | | | | | | +--------+---------+ + + + | 04/12/ | Office | Primary Care | Massimo Ramos | | | 2019 | Visit | | MD Fer [address] | | | | | | [place] | | | | | | [address] | | | | | | | | +--------+---------+ + + + | 10/03/ | Office | Neurology | Fabián Carias MD | | | 2019 | Visit | | [address] | | | | | | [place] | | | | | | [address] | | | | | | | [...] | | | care | | | Cabinet Assembler-C | | | | | | [...] | | | care | | | Cabinet Assembler-C | | | | | | [...] | | | care | | | Cabinet Assembler-C | | | | | | [...] | | | care | | | Cabinet Assembler-C | | | | | | [...]
--- OUTSIDE RECORDS SUMMARY | ~2019-02-17 | XMS | Encounter Summary ---
Demographics + + + | Address | [address] | | | [place] [address] | + + + | Home Phone [...] Team Providers + +------+ + | Care Stave Cutter Name | Role | Phone | [...] | | | | MANAGEMENT [address] | Fruit Canner-Clinical | | | | | [place] | | | | | | [place] | | | | | | [address] | | | | | | [phone] | | | +--------+ + + + [...] [place] | | | | | | [address] | | | | | | [phone] | | | | | | | | +--------+---------+ + + + | 02/26/ | Office | Urology | Lillie Fowler | | | 2018 | Visit | | [address]ILLIE [address] | | | | | | [address] | | | | | | [place], [place] | | | | | | [address] | | | | | | [phone] | | | | | | | | +--------+---------+ + + + | 03/16/ | Office | Neurology | Theresa, | | | 2018 | Visit | | [address] | | | | | | [address] [place], | | | | | | [place] [address] | | | | | | [phone] | | | | | | | | +--------+---------+ + + + | 04/12/ | Office | Primary Care | Massimo Ramos Pedro Luis | | | 2019 | Visit | | MD Fer [address] | | | | | | [place] | | | | | | [address] | | | | | | | | +--------+---------+ + + + | 10/03/ | Office | Neurology | Fabián Carias MD | | | 2019 | Visit | | [address] | | | | | | [place] | | | | | | [address] | | | | | | | [...] | | | care | | | Fruit Canner-C | | | | | | | [...] | | | care | | | Fruit Canner-C | | | | | | | [...] | | | care | | | Fruit Canner-C | | | | | | | [...] | | | care | | | Fruit Canner-C | | | | | | | linical | + +--------+ +---+-----+ + + + | Note: Pt will | | check CBG's daily x1 | | Pt will take Lantis as | | prescribed | + + documented as of this encounter Visit Diagnoses Not on filedocumented in this encounter"
--- OUTSIDE RECORDS SUMMARY | ~2019-02-17 | XMS | Encounter Summary ---
Demographics + + + | Address | [address] | | | [place] [address] | + + + | Home Phone [...] Team Providers + +------+ + | Care Carriage Rider Name | Role | Phone | + [...] unspecified back | | | | [place] [address] | | pain laterality | | | | [phone] | | (Primary Dx); Sprain | | [...] [place] | | | | | | [address] | | | | | | [phone] | | | | | | | | +--------+---------+ + + + | 02/26/ | Office | Urology | Lillie Fowler | | | 2018 | Visit | | [address]ILLIE Lopez [address] | | | | | | [address] | | | | | | [place] | | | | | | [address] | | | | | | [phone] | | | | | | | | +--------+---------+ + + + | 03/16/ | Office | Neurology | Theresa, | | | 2018 | Visit | | [address] | | | | | | [address] [place], | | | | | | [place] [address] | | | | | | [phone] | | | | | | | | +--------+---------+ + + + | 04/12/ | Office | Primary Care | Massimo Ramos | | | 2019 | Visit | | MD Fer [address] | | | | | | [place] | | | | | | [address] | | | | | | | | +--------+---------+ + + + | 10/03/ | Office | Neurology | Fabián Carias MD | | | 2019 | Visit | | [address] | | | | | | [place] | | | | | | [address] | | | | | | | [...] | | | care | | | Ironer Hand-C | | | | | | [...] | | | care | | | Ironer Hand-C | | | | | | [...] | | | care | | | Ironer Hand-C | | | | | | [...] | | | care | | | Ironer Hand-C | | | | | | [...] + +--------+ + + + | FL INJECT TRIGGER | Routin | 07/31/2018 | [...]
--- OUTSIDE RECORDS SUMMARY | ~2019-02-17 | XMS | Encounter Summary ---
Demographics + + + | Address | [address] | | | [place] [address] | + + + | Home Phone [...] Providers + +------+ + | Care Motor Block Mechanic Name | Role | Phone | [...] | sciatica, | [place] | [address] | | | | | unspecified | [place], [place] | Phone: | | | | | back pain | [address] | [phone] | | | | | laterality | Phone: | Fax: | | | | | Procedures | [phone] | [phone] | | | | | MRI Lumbar | Fax: | | | | | | Spine wo | [phone] | | | | | | Contrast [...] | sciatica, | [place] | [address] | | | | | unspecified | [place], [place] | Phone: | | | | | back pain | [address] | [phone] | | | | | laterality | Phone: | Fax: | | | | | Procedures | [phone] | [phone] | | | | | MRI Lumbar | Fax: | | | | | | Spine wo | [phone] | | | | | | Contrast [...] | | | | [place], [place] | [address] | unspecified back | | | | [address] | | pain laterality | | | | [phone] | | | +--------+ + + + [...] | use of insulin ([facility]) | | | | | | [...] | | | | | | disease, salvage determiner | | | | | | | [...] [place] | | | | | | [address] | | | | | | [phone] | | | | | | | | +--------+---------+ + + + | 02/26/ | Office | Urology | Lillie Fowler | | | 2018 | Visit | | LILLIE Lopez [address] | | | | | | [address] | | | | | | [place], [place] | | | | | | [address] | | | | | | [phone] | | | | | | | | +--------+---------+ + + + | 03/16/ | Office | Neurology | Theresa, | | | 2018 | Visit | | [address] | | | | | [address] [place], | | | | | | [place] [address] | | | | | | [phone] | | | | | | | | +--------+---------+ + + + | 04/12/ | Office | Primary Care | Massimo Ramos | | | 2019 | Visit | | MD Fer [address] | | | | | | [place] | | | | | | [address] | | | | | | | | +--------+---------+ + + + | 10/03/ | Office | Neurology | Fabián Carias MD | | | 2019 | Visit | | [address] | | | | | | [place] | | | | | | [address] | | | | | | | [...] | | | care | | | Reel And Rewinder Operator-C | | | | | | [...] | | | care | | | Reel And Rewinder Operator-C | | | | | | [...] | | | care | | | Reel And Rewinder Operator-C | | | | | | [...] | | | care | | | Reel And Rewinder Operator-C | | | | | | [...] FINDINGS: There are 5 | | | iyb-[id number]-onupnxv lumbar vertebral bodies. There is straightening of [...] performed | | without contrast.FINDINGS:There are 5 vdd-num-ssrnjmv lumbar vertebral bodies.There is | | straightening [...]
--- OUTSIDE RECORDS SUMMARY | ~2019-02-17 | XMS | Encounter Summary ---
Demographics + + + | Address | [address] | | | [place] [address] | + + + | Home Phone [...] Team Providers + +------+ + | Care Hospital Unit Coordinator Name | Role | Phone | [...] | | | CENTER [address] | [facility] | | | | | [address] [place], [place] | [place] [address] | | | | | [address] | [phone] | | | | | [phone] | | | +--------+ + + + [...] [place] | | | | | | [address] | | | | | | [phone] | | | | | | | | +--------+---------+ + + + | 02/26/ | Office | Urology | Lillie Fowler | | | 2018 | Visit | | [address]ILLIE Lopez [address] | | | | | | [address] | | | | | | [place] | | | | | | [address] | | | | | | [phone] | | | | | | | | +--------+---------+ + + + | 03/16/ | Office | Neurology | Theresa, | | | 2018 | Visit | | [address] | | | | | | [address] [place], | | | | | | [place] [address] | | | | | | [phone] | | | | | | | | +--------+---------+ + + + | 04/12/ | Office | Primary Care | Massimo Ramos | | | 2019 | Visit | | MD Fer [address] | | | | | | [address] [place] | | | | | | [address] | | | | | | | | +--------+---------+ + + + | 10/03/ | Office | Neurology | Fabián Carias MD | | | 2019 | Visit | | [address] | | | | | | [place] | | | | | | [address] | | | | | | | [...] | | | care | | | [facility]ear Admiral-C | | | | | | | [...] | | | care | | | Rear Admiral-C | | | | | | | [...] | | | care | | | Rear Admiral-C | | | | | | | [...] | | | care | | | Rear Admiral-C | | | | | | | [...] - 1.030 | EXTERNAL | | | [place], | | | LAB | | | [...] | Inguinal hernias containing fat. Job #: [id number] Read By: MASSIMO Fung | | MD [...]
--- OUTSIDE RECORDS SUMMARY | ~2019-02-17 | XMS | Encounter Summary ---
Demographics + + + | Address | [address] | | | [place] [address] | + + + | Home Phone [...] Team Providers + +------+ + | Care Line Tester Name | Role | Phone | [...] | | [address] [place], | [address] | | | | | [place] [address] | [phone] | | | | | [phone] | | | +--------+ + + + [...] [place] | | | | | | [address] | | | | | | [phone] | | | | | | | | +--------+---------+ + + + | 02/26/ | Office | Urology | Lillie Fowler | | | 2018 | Visit | | [address] | | | | | | [address] | | | | | | [place] | | | | | | [address] | | | | | | [phone] | | | | | | | | +--------+---------+ + + + | 03/16/ | Office | Neurology | Theresa, | | | 2018 | Visit | | [address] | | | | | | [address] [place], | | | | | | [place] [address] | | | | | | [phone] | | | | | | | | +--------+---------+ + + + | 04/12/ | Office | Primary Care | Massimo Ramos | | | 2019 | Visit | | [address] | | | | | | [place] | | | | | | [address] | | | | | | | | +--------+---------+ + + + | 10/03/ | Office | Neurology | Fabián Carias MD | | | 2019 | Visit | | [address] | | | | | | [place] | | | | | | [address] | | | | | | | [...] | | | care | | | Night Court Magistrate-C | | | | | | | [...] | | | care | | | Night Court Magistrate-C | | | | | | | [...] | | | care | | | Night Court Magistrate-C | | | | | | | [...] | | | care | | | Night Court Magistrate-C | | | | | | | [...]
--- OUTSIDE RECORDS SUMMARY | ~2019-02-17 | XMS | Encounter Summary ---
Demographics + + + | Address | [address] | | | [place] [address] | + + + | Home Phone [...] Providers + +------+ + | Care Chemical Etching Processor Name | Role | Phone | + [...] + + | 01/18/ | Telephone | [facility] | Charline Banks, | Care Coordination | | 2019 | | [facility] Case | | | | | [facility] | Alumni Relations Coordinator-Clinical | | | | | [facility], | | | | | | [place] [address] | | | | | | [phone] | | | +--------+ + + + [...] [place] | | | | | | [address] | | | | | | [phone] | | | | | | | | +--------+---------+ + + + | 02/26/ | Office | Urology | Lillie Fowler | | | 2018 | Visit | | [address] | | | | | | [address] | | | | | | [place], [place] | | | | | | [address] | | | | | | [phone] | | | | | | | | +--------+---------+ + + + | 03/16/ | Office | Neurology | Theresa, | | | 2018 | Visit | | [address] | | | | | | [address] [place], | | | | | | [place] [address] | | | | | | [phone] | | | | | | | | +--------+---------+ + + + | 04/12/ | Office | Primary Care | Massimo Ramos Pedro Luis | | | 2019 | Visit | | [address] | | | | | | [place] | | | | | | [address] | | | | | | | | +--------+---------+ + + + | 10/03/ | Office | Neurology | Fabián Carias MD | | | 2019 | Visit | | [address] | | | | | | [place] | | | | | | [address] | | | | | | | [...] | | | care | | | Alumni Relations Coordinator-C | | | | | | [...] | | | care | | | Alumni Relations Coordinator-C | | | | | | [...] | | | care | | | Alumni Relations Coordinator-C | | | | | | [...] | | | care | | | Alumni Relations Coordinator-C | | | | | | [...]
--- OUTSIDE RECORDS SUMMARY | ~2019-02-17 | XMS | Encounter Summary ---
Demographics + + + | Address | [address] | | | [place] [address] | + + + | Home Phone [...] Team Providers + +------+ + | Care Warehouse Shift Supervisor Name | Role | Phone | [...] Pain | | 2019 | | [facility] | DO [address] | | | | | [facility] | [facility], [place] | | | | | [address] [facility], | [address] | | | | | [place] [address] | [phone] | | | | | [phone] | | | +--------+ + + + [...] [place] | | | | | | [address] | | | | | | [phone] | | | | | | | | +--------+---------+ + + + | 02/26/ | Office | Urology | Lillie Fowler | | | 2018 | Visit | | [address] | | | | | | [address] | | | | | | [place], [place] | | | | | | [address] | | | | | | [phone] | | | | | | | | +--------+---------+ + + + | 03/16/ | Office | Neurology | Theresa, | | | 2018 | Visit | | [address] | | | | | | [address] [place], | | | | | | [place] [address] | | | | | | [phone] | | | | | | | | +--------+---------+ + + + | 04/12/ | Office | Primary Care | Massimo Ramos | | | 2019 | Visit | | MD [address] | | | | | | [place] | | | | | | [address] | | | | | | | | +--------+---------+ + + + | 10/03/ | Office | Neurology | Fabián Carias MD | | | 2019 | Visit | | [address] | | | | | | [place] | | | | | | [address] | | | | | | | [...] | | | care | | | Watch Train Assembler-C | | | | | | [...] | | | care | | | Watch Train Assembler-C | | | | | | [...] | | Yes | lAlsen, | | Medication | yle | n of | | | Charline Dos Santos, | | | | complex | | | Case | | | | care | | | Watch Train Assembler-C | | | | | | [...] | | | care | | | Watch Train Assembler-C | | | | | | [...]
--- OUTSIDE RECORDS SUMMARY | ~2019-02-17 | XMS | Encounter Summary ---
Demographics + + + | Address | [address] | | | [place] [address] | + + + | Home Phone [...] Team Providers + +------+ + | Care Modeling Analyst Name | Role | Phone | [...] [address] | | | | | [place] [address] | | | | | | [phone] | | | +--------+ + + + [...] | | | | | | [address] | | | | | | [place], [place] | | | | | | [address] | | | | | | [phone] | | | | | | | | +--------+---------+ + + + | 02/26/ | Office | Urology | Lillie Fowler | | | 2018 | Visit | | [address] | | | | | | [address] | | | | | | [place], [place] | | | | | | [address] | | | | | | [phone] | | | | | | | | +--------+---------+ + + + | 03/16/ | Office | Neurology | Theresa, | | | 2018 | Visit | | [address] | | | | | | [address] [place], | | | | | | [place] [address] | | | | | | [phone] | | | | | | | | +--------+---------+ + + + | 04/12/ | Office | Primary Care | Massimo Ramos Pedro Luis | | | 2019 | Visit | | [address] | | | | | | [place] | | | | | | [address] | | | | | | | | +--------+---------+ + + + | 10/03/ | Office | Neurology | Fabián Carias MD | | | 2019 | Visit | | [address] | | | | | | [place] | | | | | | [address] | | | | | | | [...] | | | care | | | Furniture Associate-C | | | | | | [...] | | | care | | | Furniture Associate-C | | | | | | [...] | | | care | | | Furniture Associate-C | | | | | | [...] | | | care | | | Furniture Associate-C | | | | | | | linical | + +--------+ +---+-----+ + + + | Note: Pt will | | check CBG's daily x1 | | Pt will take Lantis as | | prescribed | + + documented as of this encounter Visit Diagnoses Not on filedocumented in this encounter"
--- OUTSIDE RECORDS SUMMARY | ~2019-02-17 | XMS | Encounter Summary ---
Demographics + + + | Address | [address] | | | [place] [address] | + + + | Home Phone [...] Team Providers + +------+ + | Care Coat Operator Insulator Name | Role | Phone | + [...] + + | 12/14/ | Telephone | [facility] | Charline Banks, | Transitions Of Care | | 2019 | | [facility] | Case | | | | | [facility] | Director Of Strategic Programs-Clinical | | | | | [address] [facility], | | | | | | [place] [address] | | | | | | [phone] | | | +--------+ + + + [...] [place] | | | | | | [address] | | | | | | [phone] | | | | | | | | +--------+---------+ + + + | 02/26/ | Office | Urology | Lillie Fowler | | | 2019 | Visit | | [address] | | | | | | [address] | | | | | | [place], [place] | | | | | | [address] | | | | | | [phone] | | | | | | | | +--------+---------+ + + + | 03/16/ | Office | Neurology | Theresa, | | | 2018 | Visit | | [address] | | | | | | [address] [place], | | | | | | [place] [address] | | | | | | [phone] | | | | | | | | +--------+---------+ + + + | 04/12/ | Office | Primary Care | Massimo Ramos | | | 2019 | Visit | | [address] | | | | | | [place] | | | | | | [address] | | | | | | | | +--------+---------+ + + + | 10/03/ | Office | Neurology | Fabián Carias MD | | | 2019 | Visit | | [address] | | | | | | [place] | | | | | | [address] | | | | | | | [...] | care | | | Director Of Strategic Programs-C | | | | | | | [...] | care | | | Director Of Strategic Programs-C | | | | | | | [...] | care | | | Director Of Strategic Programs-C | | | | | | | [...] | care | | | Director Of Strategic Programs-C | | | | | | | [...]
--- OUTSIDE RECORDS SUMMARY | ~2019-02-17 | XMS | Encounter Summary ---
Demographics + + + | Address | [address] | | | [place] [address] | + + + | Home Phone [...] Team Providers + +------+ + | Care Radiotelegraphist Name | Role | Phone | + [...] | | | | | toenail | [address] | [address] | | | | | Procedures | Phone: | Phone: | | | | | FOOT ISSUES | [phone] | [phone] | | | | | | Fax: | Fax: | | | | | | [phone] | [phone] | +--------+ + + + + + [...] | | | [place], [place] | [address] | sole | | | | [address] | | | | | | [phone] | | | +--------+---------+ + + + [...] | : 1940 | Medical Record Number:[id number] | Author: Nessa Mathur DPM | Date [...] to his heels and apply a plastic [place] bag over that and his socks and [...] Chronic nonseasonal allergic rhinitis due to pollen technician terminal and repeater current use of aspirin 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, left technician terminal and repeater current use of opiate analgesic Current use of beta marly Panlobular emphysema Atherosclerosis of 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 Electronically signed by: Nessa Mathur DPM 02/19/2018 at 18:07 Note: Part of this report was transcribed using voice recognition software. Every effort wa s made to ensure accuracy. However, inadvertent computerized tape sewing machine operator errors may be pre sent. CC: DO [...] [place] | | | | | | [address] | | | | | | [phone] | | | | | | | | +--------+---------+ + + + | 02/26/ | Office | Urology | Lillie Fowler | | | 2019 | Visit | | [address] | | | | | | [address] | | | | | | [place], [place] | | | | | | [address] | | | | | | [phone] | | | | | | | | +--------+---------+ + + + | 03/16/ | Office | Neurology | Theresa, | | | 2018 | Visit | | [address] | | | | | | [address] [place], | | | | | | [place] [address] | | | | | | [phone] | | | | | | | | +--------+---------+ + + + | 04/12/ | Office | Primary Care | Massimo Ramoslulu | | | 2019 | Visit | | MD [address] | | | | | | [place] | | | | | | [address] | | | | | | | | +--------+---------+ + + + | 10/03/ | Office | Neurology | Fabián Carias MD | | | 2019 | Visit | | [address] | | | | | | [place] | | | | | | [address] | | | | | | | [...] | | | care | | | Durability Engineer-C | | | | | | [...] | | | care | | | Durability Engineer-C | | | | | | [...] | | | care | | | Durability Engineer-C | | | | | | [...] | | | care | | | Durability Engineer-C | | | | | | [...]
--- OUTSIDE RECORDS SUMMARY | ~2019-02-17 | XMS | Encounter Summary ---
Demographics + + + | Address | [address] | | | [place] [address] | + + + | Home Phone [...] Team Providers + +------+ + | Care Review Analyst Name | Role | Phone | [...] Specialty | Surgery / | Diagnoses | [facility] | [facility] | | | Services | General | Abnormal | Renato Stoll NP | General | | | Required | Surgery | results of | [address] | Surgery [address] | | | | | function | [address] | [address] | | | | | studies of | [place], [place] | [place] | | | | | other organs | [address] | [place], [place] | | | | | and systems | Phone: | [address] | | | | | | [phone] | Phone: | | | | | | Fax: | [phone] | | | | | | [phone] | Fax: | | | | | | | [phone] | +--------+ + + + + + Evaluate & Treat (Routine) + + + + + + + | Status | Reason | Specialty | Diagnoses / | Referred By | Referred To | | | | | Procedures | Contact | Contact | + + + + + + + | Authorized | Specialty | Urology | Diagnoses | Kendrick | [facility] | | | Services | | Abnormal | Renato L, DRYING ROOM OPERATOR | Urology [address] | | | Required | | results of | [address] | [address] | | | | | function | DR [address] | [address] | | | | | studies of | [place] | [place] | | | | | other organs | [address] | [address] | | | | | and systems | Phone: | Phone: | | | | | Procedures | [phone] | [phone] | | | | | [place] | Fax: | Fax: | | | | | | [phone] | [phone] | + + + + + + + Reason for Visit + + + | Reason | Comments | + + + | Follow-up | DM, Medications | + + + Encounter Details +--------+---------+ + + + | Date | Type | Department | Care Team | Description | +--------+---------+ + + + | 11/27/ | Office | [facility] | Renato Marks, | Preventative health | | 2019 | Visit | [facility] | DRYING ROOM OPERATOR [address] | care (Primary Dx); | | | | MEDICAL CLINIC [facility] | [place] [address] | Opioid use | | | | [address] [place], | [phone] | | | | | [place] [address] | | | | | | [phone] | | | +--------+---------+ + + + [...] + + + | Blood Pressure | 112/72 | 11/27/2018 9:51 AM | | | | | PDT | | + + + + + | Pulse | 70 | 11/27/2018 9:51 AM | | | | | PDT | | + + + + + | Temperature | 36.9 C (98.5 F) | 11/27/2018 9:51 AM | | | | | PDT | | + + + + + | Respiratory Rate | 18 | 11/27/2018 9:51 AM | | | | | PDT | | + + + + + | Oxygen Saturation | 92% | 11/27/2018 9:51 AM | | | | | PDT | | + + + + + | Inhaled Oxygen | - | - | | | Concentration | | | | + + + + + | Weight | 90.3 kg (199 lb) | 11/27/2018 9:51 AM | | | | | PDT | | + + + + + | Height | 167.6 cm (5' 6") | 11/27/2018 9:51 AM | | | | | PDT | | + + + + + | Body Mass Index | 32.12 | 11/27/2018 9:51 AM | | | | | PDT [...] of this encounter Patient Instructions Patient Instructions Renato Marks NP - 11/27/2018 10:00 AM PDTDrink plenty of liquids. You will be contacted by urology office and surgeon office to arrange appointments. PSA bl ood draw today. Return to the clinic in 3 months for follow up. Return to the clinic soone r for problems or concerns. A M PDT documented in this encounter Progress Notes Renato Marks NP - 11/27/2018 10:00 AM PDTFormatting of this note might be different fro m the original. Subjective: Patient ID: Geraldo Mcfadden is a 78 y.o. male. HPI 78 y.o. Male accompanied by his presents for review of a recent PET scan. Review of Systems Musculoskeletal: Positive for arthralgias, gait problem and myalgias. All other systems reviewed and are negative. Objective: BP 112/72 | Pulse 70 | Temp 36.9 C (98.5 F) (Oral) | Resp 18 | Ht 1.676 m (5' 6") | Wt 90.3 kg (199 lb) | SpO2 92% | BMI 32.12 kg/m Physical Exam Constitutional: He is oriented to person, place, and time. He appears well-developed and we ll-nourished. HENT: Head: Normocephalic. Right Ear: External ear normal. Left Ear: External ear normal. Eyes: Pupils are equal, round, and reactive to light. Conjunctivae are normal. Neck: Normal range of motion. Neck supple. Cardiovascular: Normal rate and regular rhythm. Pulmonary/Chest: Effort normal and breath sounds normal. Abdominal: Soft. Bowel sounds are normal. Musculoskeletal: Normal range of motion. Neurological: He is alert and oriented to person, place, and time. Skin: Skin is warm and dry. Psychiatric: He has a normal mood and affect. His behavior is normal. Judgment and thought content normal. Vitals reviewed. No s and s Of acute distress. Assessment: Mediastinal adenopathy. BPH Plan: Ddrink plenty of liquids. Urology referral. Surgical referral for colonoscopy. PSA and c all patient with results. Increase Lantus insulin to 40 units QHS. RTC [address] thorax as recommended from PET scan. RTC sooner for problems or concerns. documented in this en counter Plan of [...] [place] | | | | | | [address] | | | | | | [phone] | | | | | | | | +--------+---------+ + + + | 02/26/ | Office | Urology | Lillie Fowler | | | 2018 | Visit | | [address] | | | | | | [address] | | | | | | [place], [place] | | | | | | [address] | | | | | | [phone] | | | | | | | | +--------+---------+ + + + | 03/16/ | Office | Neurology | Theresa, | | | 2018 | Visit | | [address] | | | | | | [address] [place], | | | | | | [place] [address] | | | | | | [phone] | | | | | | | | +--------+---------+ + + + | 04/12/ | Office | Primary Care | Richard Massimo Pedro Luis | | | 2019 | Visit | | MD [address] | | | | | | [place] | | | | | | [address] | | | | | | | | +--------+---------+ + + + | 10/03/ | Office | Neurology | Fabián Carias MD | | | 2019 | Visit | | [address] | | | | | | [place] | | | | | | [address] | | | | | | | | +--------+---------+ + + + + +------+--------+ + + | Name | Type | Priori | Associated Diagnoses | Order Schedule | | | | ty | | | + +------+--------+ + + | Drugs of Abuse, | Lab | Routin | Opioid use | 1 Occurrences | | Screen, Urine | | e | | starting 12/09/2018 | | | | | | until 12/10/2019 | + +------+--------+ + + + + +--------+ + + | Name | Type | Priori | Associated Diagnoses | Order Schedule | | | | ty | | | + + +--------+ + + | * [facility] | Outpatient | Routin | Preventative | Ordered: 11/27/2018 | | [facility] - AMB | Referral | e | health care | | | Referral | | | | | + + +--------+ + + | * [facility] | Outpatient | Routin | Preventative | Ordered: 11/27/2018 | | [facility] General Surgery | Referral | e | health care | | | - AMB Referral | [...] | | care | | | Manager Engine-C | | | | | | | [...] | | care | | | Manager Engine-C | | | | | | | [...] | | care | | | Manager Engine-C | | | | | | | [...] | | care | | | Manager Engine-C | | | | | | | linical | + +--------+ +---+-----+ + + + | Note: Pt will | | check CBG's daily x1 | | Pt will take Lantis as | | prescribed | + + documented as of this encounter Results PSA, Diagnostic (12/08/2018 12:30 PM PDT) + [...] + + | PSA, TOTAL PERFORMED ON ADVIA LangharAUR XP. TEST RESULT MAY NOT | [facility] | | CORRELATE WITH OTHER INSTRUMENTS. | HOSPITAL | | | LABORATORY | + + + + + + + + | Performing | Address | City/State/Zipcode | Phone Number | | Organization | | | | + + + + + | [facility] | [address] | [place] [address] | [phone] | | [facility] | | | | + + + + + documented in this encounter Visit Diagnoses + + | Diagnosis | + + | Preventative health care - Primary [facility] | | care facility | + + | Opioid use | + + documented in this encounter Additional Health Concerns + + + + | Infection | Noted Time | Resolved Time | + + + + | Methicillin-resistant Staphylococcus aureus | 07/20/2018 4:00 PM | | | | PDT | | + + + + documented as of this encounter
--- OUTSIDE RECORDS SUMMARY | ~2019-02-17 | XMS | Encounter Summary ---
Demographics + + + | Address | [address] | | | [place] [address] | + + + | Home Phone [...] Team Providers + +------+ + | Care Prototype Sewer Name | Role | Phone | [...] [address] | | | | | [place] [address] | | | | | | [phone] | | | +--------+ + + + [...] [place] | | | | | | [address] | | | | | | [phone] | | | | | | | | +--------+---------+ + + + | 02/26/ | Office | Urology | Lillie Fowler | | | 2018 | Visit | | [address] | | | | | | [address] | | | | | | [place], [place] | | | | | | [address] | | | | | | [phone] | | | | | | | | +--------+---------+ + + + | 03/16/ | Office | Neurology | Theresa, | | | 2018 | Visit | | [address] | | | | | | [address] [place], | | | | | | [place] [address] | | | | | | [phone] | | | | | | | | +--------+---------+ + + + | 04/12/ | Office | Primary Care | Massimo Ramos | | | 2019 | Visit | | MD [address] | | | | | | [place] | | | | | | [address] | | | | | | | | +--------+---------+ + + + | 10/03/ | Office | Neurology | Fabián Carias MD | | | 2019 | Visit | | [address] | | | | | | [place] | | | | | | [address] | | | | | | | [...] | | | care | | | National Insurance Officer-C | | | | | | [...] | | | care | | | National Insurance Officer-C | | | | | | [...] | | | care | | | National Insurance Officer-C | | | | | | [...] | | | care | | | National Insurance Officer-C | | | | | | [...]
--- OUTSIDE RECORDS SUMMARY | ~2019-02-17 | XMS | Encounter Summary ---
Demographics + + + | Address | [address] | | | [place] [address] | + + + | Home Phone [...] Team Providers + +------+ + | Care Otolaryngology Rep Name | Role | Phone | [...] | | | | MANAGEMENT [address] | Stroke Program Coordinator-Clinical | | | | | [address] | | | | | | [place] | | | | | | [address] | | | | | | [phone] | | | +--------+ + + + [...] [place] | | | | | | [address] | | | | | | [phone] | | | | | | | | +--------+---------+ + + + | 02/26/ | Office | Urology | Lillie Fowler | | | 2018 | Visit | | [address] | | | | | | [address] | | | | | | [place], [place] | | | | | | [address] | | | | | | [phone] | | | | | | | | +--------+---------+ + + + | 03/16/ | Office | Neurology | Theresa, | | | 2018 | Visit | | [address] | | | | | | [address] [place], | | | | | | [place] [address] | | | | | | [phone] | | | | | | | | +--------+---------+ + + + | 04/12/ | Office | Primary Care | Massimo Ramos | | | 2019 | Visit | | MD [address] | | | | | | [place] | | | | | | [address] | | | | | | | | +--------+---------+ + + + | 10/03/ | Office | Neurology | Fabián Carias MD | | | 2019 | Visit | | [address] | | | | | | [place] | | | | | | [address] | | | | | | | [...] | | | care | | | Stroke Program Coordinator-C | | | | | | [...] | | | care | | | Stroke Program Coordinator-C | | | | | | [...] | | | care | | | Stroke Program Coordinator-C | | | | | | [...] | | | care | | | Stroke Program Coordinator-C | | | | | | | linical | + +--------+ +---+-----+ + + + | Note: Pt will | | check CBG's daily x1 | | Pt will take Lantis as | | prescribed | + + documented as of this encounter Visit Diagnoses Not on filedocumented in this encounter"
--- OUTSIDE RECORDS SUMMARY | ~2019-02-17 | XMS | Encounter Summary ---
Demographics + + + | Address | [address] | | | [place] [address] | + + + | Home Phone [...] | Appointment | | 2018 | | [facility] | | | | | | CLINIC [address] | | | | | | [address] [place], | | | | | | [place] [address] | | | | | | [phone] | | | +--------+ + + + [...] [place] | | | | | | [address] | | | | | | [phone] | | | | | | | | +--------+---------+ + + + | 02/26/ | Office | Urology | Lillie Fowler | | | 2018 | Visit | | [address] | | | | | [address] | | | | | | [place] | | | | | | [address] | | | | | | [phone] | | | | | | | | +--------+---------+ + + + | 03/16/ | Office | Neurology | Theresa, | | | 2018 | Visit | | [address] | | | | | | [address] [place], | | | | | | [place] [address] | | | | | | [phone] | | | | | | | | +--------+---------+ + + + | 04/12/ | Office | Primary Care | Massimo Ramos | | | 2019 | Visit | | MD [address] | | | | | | [place] | | | | | | [address] | | | | | | | | +--------+---------+ + + + | 10/03/ | Office | Neurology | Fabián Carias MD | | | 2019 | Visit | | [address] | | | | | | [place] | | | | | | [address] | | | | | | | [...] | | | care | | | [facility] | | | | | | | [...] | | | care | | | [facility] | | | | | | | [...] | | | care | | | [facility] | | | | | | | [...] | | | care | | | [facility] | | | | | | | linical | + +--------+ +---+-----+ + + + | Note: Pt will | | check CBG's daily x1 | | Pt will take [place] as | | prescribed | + + documented as of this encounter Visit Diagnoses Not on filedocumented in this encounter"
--- OUTSIDE RECORDS SUMMARY | ~2019-02-17 | XMS | Encounter Summary ---
Demographics + + + | Address | [address] | | | [place] [address] | + + + | Home Phone [...] Team Providers + +------+ + | Care Trial Examiner Name | Role | Phone | + [...] (Request to | | 2017 | | [facility] | [address] | Change Providers) | | | | [facility] | [facility], [place] | | | | | [address] [place] [address], | [address] | | | | | [place] [address] | [phone] | | | | | [phone] | | | +--------+ + + + [...] [place] | | | | | | [address] | | | | | | [phone] | | | | | | | | +--------+---------+ + + + | 02/26/ | Office | Urology | Lillie Fowler | | | 2018 | Visit | | LILLIE Lopez [address] | | | | | | [address] | | | | | | [place], [place] | | | | | | [address] | | | | | | [phone] | | | | | | | | +--------+---------+ + + + | 03/16/ | Office | Neurology | Theresa, | | | 2018 | Visit | | [address] | | | | | | [address] [place], | | | | | | [place] [address] | | | | | | [phone] | | | | | | | | +--------+---------+ + + + | 04/12/ | Office | Primary Care | Massimo Ramos | | | 2019 | Visit | | MD Fer [address] | | | | | | [address] [place] | | | | | | [address] | | | | | | | | +--------+---------+ + + + | 10/03/ | Office | Neurology | Fabián Carias MD | | | 2019 | Visit | | [address] | | | | | | [place] | | | | | | [address] | | | | | | | [...]
--- OUTSIDE RECORDS SUMMARY | ~2019-02-17 | XMS | Encounter Summary ---
Demographics + + + | Address | [address] | | | [place] [address] | + + + | Home Phone [...] Team Providers + +------+ + | Care Masking Machine Feeder Name | Role | Phone [...] [place] | | | | | | [address] | (Fax) | | | | | [phone] | | | +--------+ + + + [...] 2018 | Visit | | DO Luis Frenando Rao | | | | | | [address] | | | | | | [place] | | | | | | [address] | | | | | | [phone] | | | | | | | | +--------+---------+ + + + | 02/26/ | Office | Urology | Lillie Fowler | | | 2018 | Visit | | [address]IE Lopez [address] | | | | | | [address] | | | | | | [place] | | | | | | [address] | | | | | | [phone] | | | | | | | | +--------+---------+ + + + | 03/16/ | Office | Neurology | Theresa, | | | 2018 | Visit | | [address] | | | | | | [address] [place], | | | | | | [place] [address] | | | | | | [phone] | | | | | | | | +--------+---------+ + + + | 04/12/ | Office | Primary Care | Massimo Ramos | | | 2019 | Visit | | MD Fer [address] | | | | | | [address] [place] | | | | | | [address] | | | | | | | | +--------+---------+ + + + | 10/03/ | Office | Neurology | Fabián Carias MD | | | 2019 | Visit | | [address] | | | | | | [place] | | | | | | [address] | | | | | | | [...] | | care | | | Clinical Staff Pharmacist-C | | | | | | | [...] | | care | | | Clinical Staff Pharmacist-C | | | | | | | [...] | | care | | | Clinical Staff Pharmacist-C | | | | | | | [...] | | care | | | Clinical Staff Pharmacist-C | | | | | | | [...]
--- OUTSIDE RECORDS SUMMARY | ~2019-02-17 | XMS | Encounter Summary ---
Demographics + + + | Address | [address] | | | [place] [address] | + + + | Home Phone [...] Providers + +------+ + | Care Cnc 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 Name | Role | Phone [...] Care | | 2018 | | [facility] | RN | | | | | MEDICAL [facility] [address] | | | | | | [address]TH [facility], | | | | | | [place] [address] | | | | | | [phone] | | | +--------+ + + + [...] [place] | | | | | | [address] | | | | | | [phone] | | | | | | | | +--------+---------+ + + + | 02/26/ | Office | Urology | Lillie Fowler | | | 2018 | Visit | | [address]IE Lopez [address] | | | | | | [address] | | | | | | [place], [place] | | | | | | [address] | | | | | | [phone] | | | | | | | | +--------+---------+ + + + | 03/16/ | Office | Neurology | Theresa, | | | 2018 | Visit | | [address] | | | | | | [address] [place], | | | | | | [place] [address] | | | | | | [phone] | | | | | | | | +--------+---------+ + + + | 04/12/ | Office | Primary Care | Massimo Ramos | | | 2019 | Visit | | MD Fer [address] | | | | | | [place] | | | | | | [address] | | | | | | | | +--------+---------+ + + + | 10/03/ | Office | Neurology | Fabián Carias MD | | | 2019 | Visit | | [address] | | | | | | [place] | | | | | | [address] | | | | | | | [...] | | | care | | | Respiratory Care Assistant-C | | | | | | [...] | | | care | | | Respiratory Care Assistant-C | | | | | | [...] | | | care | | | Respiratory Care Assistant-C | | | | | | [...] | | | care | | | Respiratory Care Assistant-C | | | | | | | linical | + +--------+ +---+-----+ + + + | Note: Pt will | | check CBG's daily x1 | | Pt will take Lantis as | | prescribed | + + documented as of this encounter Visit Diagnoses Not on filedocumented in this encounter"
--- OUTSIDE RECORDS SUMMARY | ~2019-02-17 | XMS | Encounter Summary ---
Demographics + + + | Address | [address] | | | [place] [address] | + + + | Home Phone [...] Providers + +------+ + | Care Finished Garment Inspector Name | Role | Phone | [...] [facility] | DO [address] | | | | | MEDICAL [facility] [address] | [place], [place] | | | | | [address] [place], | [address] | | | | | [place] [address] | [phone] | | | | | [phone] | | | +--------+ + + + [...] [place] | | | | | | [address] | | | | | | [phone] | | | | | | | | +--------+---------+ + + + | 02/26/ | Office | Urology | Lillie Fowler | | | 2018 | Visit | | [address]ILLIE Lopez [address] | | | | | | [address] | | | | | | [place] | | | | | | [address] | | | | | | [phone] | | | | | | | | +--------+---------+ + + + | 03/16/ | Office | Neurology | Theresa, | | | 2018 | Visit | | [address] | | | | | | [address] [place], | | | | | | [place] [address] | | | | | | [phone] | | | | | | | | +--------+---------+ + + + | 04/12/ | Office | Primary Care | Massimo Ramos | | | 2019 | Visit | | MD Fer [address] | | | | | | [place] | | | | | | [address] | | | | | | | | +--------+---------+ + + + | 10/03/ | Office | Neurology | Fabián Carias MD | | | 2019 | Visit | | [address] | | | | | | [place] | | | | | | [address] | | | | | | | [...] | | | care | | | Wedding Coordinator-C | | | | | | [...] | | | care | | | Wedding Coordinator-C | | | | | | [...] | | | care | | | Wedding Coordinator-C | | | | | | [...] | | | care | | | Wedding Coordinator-C | | | | | | | linical | + +--------+ +---+-----+ + + + | Note: Pt will | | check CBG's daily x1 | | Pt will take Lantis as | | prescribed | + + documented as of this encounter Visit Diagnoses Not on filedocumented in this encounter"
--- OUTSIDE RECORDS SUMMARY | ~2019-02-17 | XMS | Encounter Summary ---
Demographics + + + | Address | [address] | | | [place] [address] | + + + | Home Phone [...] Providers + +------+ + | Care Motor Expert Name | Role | Phone | + [...] | Results | | 2019 | | [facility] | DO [address] | | | | | MEDICAL CLINIC [address] | [place], [place] | | | | | [address] [place], | [address] | | | | | [place] [address] | [phone] | | | | | [phone] | | | +--------+ + + + [...] [place] | | | | | | [address] | | | | | | [phone] | | | | | | | | +--------+---------+ + + + | 02/26/ | Office | Urology | Lillie Fowler | | | 2018 | Visit | | [address] | | | | | | [address] | | | | | | [place], [place] | | | | | | [address] | | | | | | [phone] | | | | | | | | +--------+---------+ + + + | 03/16/ | Office | Neurology | Theresa, | | | 2018 | Visit | | [address] | | | | | | [address] [place], | | | | | | [place] [address] | | | | | | [phone] | | | | | | | | +--------+---------+ + + + | 04/12/ | Office | Primary Care | Massimo Ramos | | | 2019 | Visit | | MD Fer [address] | | | | | | [place] | | | | | | [address] | | | | | | | | +--------+---------+ + + + | 10/03/ | Office | Neurology | Fabián Carias MD | | | 2019 | Visit | | [address] | | | | | | [place] | | | | | | [address] | | | | | | | [...] | | | care | | | Motor Equipment Captain-C | | | | | | | [...] | | | care | | | Motor Equipment Captain-C | | | | | | | [...] | | | care | | | Motor Equipment Captain-C | | | | | | | [...] | | | care | | | Motor Equipment Captain-C | | | | | | | [...]
--- OUTSIDE RECORDS SUMMARY | ~2019-02-17 | XMS | Encounter Summary ---
Demographics + + + | Address | [address] | | | [place] [address] | + + + | Home Phone [...] Providers + +------+ + | Care Skip Operator Name | Role | Phone | [...] Tereza KAUFFMAN | | | | | [phone] | [place] [address] | | +--------+ + + + + [...] [place] | | | | | | [address] | | | | | | [phone] | | | | | | | | +--------+---------+ + + + | 02/26/ | Office | Urology | Lillie Fowler | | | 2018 | Visit | | [address] | | | | | | [address] | | | | | | [place], [place] | | | | | | [address] | | | | | | [phone] | | | | | | | | +--------+---------+ + + + | 03/16/ | Office | Neurology | Theresa, | | | 2018 | Visit | | [address] | | | | | | [address] [place], | | | | | | [place] [address] | | | | | | [phone] | | | | | | | | +--------+---------+ + + + | 04/12/ | Office | Primary Care | Massimo Ramos | | | 2019 | Visit | | MD Fer [address] | | | | | | [place] | | | | | | [address] | | | | | | | | +--------+---------+ + + + | 10/03/ | Office | Neurology | Fabián Carias MD | | | 2019 | Visit | | [address], [place] | | | | | | [place], [place] | | | | | | [address] | | | | | | | [...] | | | care | | | Axle Inspector-C | | | | | | [...] | | | care | | | Axle Inspector-C | | | | | | [...] | | | care | | | Axle Inspector-C | | | | | | [...] | | | care | | | Axle Inspector-C | | | | | | [...]
--- OUTSIDE RECORDS SUMMARY | ~2019-02-17 | XMS | Encounter Summary ---
Demographics + + + | Address | [address] | | | [place] [address] | + + + | Home Phone [...] Providers + +------+ + | Care Manager Underwriting Name | Role | Phone | + [...] | | | | | [address] [facility], | [address] | | | | | [place] [address] | [phone] | | | | | [phone] | | | +--------+ + + + [...] [place] | | | | | | [address] | | | | | | [phone] | | | | | | | | +--------+---------+ + + + | 02/26/ | Office | Urology | Lillie Fowler | | | 2018 | Visit | | [address]ILLIE Lopez [address] | | | | | | [address] | | | | | | [place] | | | | | | [address] | | | | | | [phone] | | | | | | | | +--------+---------+ + + + | 03/16/ | Office | Neurology | Theresa, | | | 2018 | Visit | | [address] | | | | | | [address] [place], | | | | | | [place] [address] | | | | | | [phone] | | | | | | | | +--------+---------+ + + + | 04/12/ | Office | Primary Care | Massimo Ramos | | | 2019 | Visit | | MD Fer [address] | | | | | | [place] | | | | | | [address] | | | | | | | | +--------+---------+ + + + | 10/03/ | Office | Neurology | Fabián Carias MD | | | 2019 | Visit | | [address] | | | | | | [place] | | | | | | [address] | | | | | | | [...] | | | care | | | Cane Cutter-C | | | | | | [...] | | | care | | | Cane Cutter-C | | | | | | [...] | | | care | | | Cane Cutter-C | | | | | | [...] | | | care | | | Cane Cutter-C | | | | | | | linical | + +--------+ +---+-----+ + + + | Note: Pt will | | check CBG's daily x1 | | Pt will take Lantis as | | prescribed | + + documented as of this encounter Visit Diagnoses Not on filedocumented in this encounter"
--- OUTSIDE RECORDS SUMMARY | ~2019-02-17 | XMS | Encounter Summary ---
Demographics + + + | Address | [address] | | | [place] [address] | + + + | Home Phone [...] Team Providers + +------+ + | Care Physical Medicine Physician Name | Role | Phone | [...] | pain, | [address] [place] | [address] | | | | | bilateral | [place], [place] | Phone: | | | | | Procedures | [address] | [phone] | | | | | MRI Cervical | Phone: | Fax: | | | | | Spine wo | [phone] | [phone] | | | | | Contrast | Fax: | | | | | | | [phone] | | +--------+--------+ + + + + [...] | sciatica, | [address] [place] | [address] | | | | | unspecified | [place], [place] | Phone: | | | | | back pain | [address] | [phone] | | | | | laterality | Phone: | Fax: | | | | | Procedures | [phone] | [phone] | | | | | MRI Lumbar | Fax: | | | | | | Spine wo | [phone] | | | | | | Contrast [...] | DR [place], | [address] | polyneuropathy, with | | | | [place] [address] | | long-term current | | | | [phone] | | use of insulin (HCC) | | | | | | (Primary Dx); Left | | | | | | shoulder pain, | | | | | | unspecified | | | | | | chronicity; | | | | | | Multilevel | | | | | | degenerative disc | | | | | | disease; long-term | | | | | | [...] be different from the original. Patient Instructions [facility] Neurology Clinic Dr. Jalyn Carias, Neurologist Date:12/15/2017 [...] le, and scrabble, other puzzle games like [employer], [employer]. Play computer/mobile applications such as EpiEP and MIND GAMES Discussed Anodyne therapy/Light therapy Any Questions please call JAMAAL Marroquin or Dr. Carias at [facility] Neurology Clinic General Neck and Back Pain [...] are taking other medicines. You may use jexo-eud-girhvml medicine to control pain, unless another pain [...] by your healthcare provider Date Last Reviewed: 10/06/201519990439-7825 The [employer]. [address] [place] [address], [place] [address]. All righ ts reserved. This information is [...] use ice several times a day. ?Medicines Ovqc-sps-prgqjvd pain relievers can includeacetaminophen and anti-inflammatory medicines, [...] a heating p ad. Date Last Reviewed: 12/06/201419994292-9090 [employer]. [address] [place] [address], [place] [address]. All righ ts reserved. This information is [...] cut down on salt. A dietitian or crawler dragline operator can help form a meal plan that [...] lab tests as scheduled. Date Last Reviewed: 08/24/201519995936-3637 [employer]. [address] [place] [address], [place] [address]. All righ ts reserved. This information is [...] you take. This includes prescription an d evwr-wyg-arsqsoj medicines, vitamins, and herbs. Ask if any of the medicines may be causin g your problems. Don't make any changes to prescription medicines without talking to your wilson healthcare provider first. You may be prescribed medicines [...] speaking, walking, or seeing Date Last Reviewed: 06/05/201719998503-7752 [employer]. [address] [place] [address], [place] [address]. All righ ts reserved. This information is [...] massage, and other methods. Date Last Reviewed: 04/07/201719995504-8823 [employer]. [address] [place] [address]. All [facility] ts reserved. This information is not intended [...] acupuncture, massage, and others. Date Last Reviewed: 03/07/201719995438-3545 [employer]. [address] [place] [address], [place] [address]. All righ ts reserved. This information is [...] [place] | | | | | | [address] | | | | | | [phone] | | | | | | | | +--------+---------+ + + + | 02/26/ | Office | Urology | Lillie Fowler | | | 2018 | Visit | | [address]IE Lopez [address] | | | | | | [address] | | | | | | [place], [place] | | | | | | [address] | | | | | | [phone] | | | | | | | | +--------+---------+ + + + | 03/16/ | Office | Neurology | Theresa, | | | 2018 | Visit | | [address] | | | | | | [address] [place], | | | | | | [place] [address] | | | | | | [phone] | | | | | | | | +--------+---------+ + + + | 04/12/ | Office | Primary Care | Massimo Ramos Pedro Luis | | | 2019 | Visit | | MD Fer [address] | | | | | | [place] | | | | | | [address] | | | | | | | | +--------+---------+ + + + | 10/03/ | Office | Neurology | Jalyn Carias MD | | | 2019 | Visit | | [address] | | | | | | [place] | | | | | | [address] | | | | | | | [...] | | | care | | | Algorithm Developer-C | | | | | | [...] | | | care | | | Algorithm Developer-C | | | | | | [...] | | | care | | | Algorithm Developer-C | | | | | | [...] | | | care | | | Algorithm Developer-C | | | | | | [...] JALYN CARIAS M.D. | | | Neurologist [phone] Electronically signed NOTE: Part of | | | this report was transcribed using voice recognition | | | software. Every effort was made to ensure | | | accuracy. However, inadvertent computerize | | | traffic worker errors may be present | | + [...] FINDINGS: There are 5 | | | obz-ygp-bnnlvec lumbar vertebral bodies. There is straightening of [...] performed | | without contrast.FINDINGS:There are 5 itp-qjc-teubhzm lumbar vertebral bodies.There is | | straightening [...] | | unspecified | + + | long-term current use 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
--- OUTSIDE RECORDS SUMMARY | ~2019-02-17 | XMS | Encounter Summary ---
Demographics + + + | Address | [address] | | | [place] [address] | + + + | Home Phone [...] Team Providers + +------+ + | Care Cat Wagon Operator Name | Role | Phone | [...] Pre-op Exam | | 2018 | | [facility] | [address] | | | | | MEDICAL CLINIC [address] | [facility] [address], [place] | | | | | [address] [place], | [address] | | | | | [place] [address] | [phone] | | | | | [phone] | | | +--------+ + + + [...] [place] | | | | | | [address] | | | | | | [phone] | | | | | | | | +--------+---------+ + + + | 02/26/ | Office | Urology | Malcolm Lillie | | | 2018 | Visit | | [address] | | | | | | [address] | | | | | | [place], [place] | | | | | | [address] | | | | | | [phone] | | | | | | | | +--------+---------+ + + + | 03/16/ | Office | Neurology | Theresa, | | | 2018 | Visit | | [address] | | | | | | [address] [place], | | | | | | [place] [address] | | | | | | [phone] | | | | | | | | +--------+---------+ + + + | 04/12/ | Office | Primary Care | Massimo Ramos | | | 2019 | Visit | | MD Fer [address] | | | | | | [place] | | | | | | [address] | | | | | | | | +--------+---------+ + + + | 10/03/ | Office | Neurology | Fabián Carias MD | | | 2019 | Visit | | [address] | | | | | | [place] | | | | | | [address] | | | | | | | [...] | | | care | | | Applique Sewer-C | | | | | | [...] | | | care | | | Applique Sewer-C | | | | | | [...] | | | care | | | Applique Sewer-C | | | | | | [...] | | | care | | | Applique Sewer-C | | | | | | | linical | + +--------+ +---+-----+ + + + | Note: Pt will | | check CBG's daily x1 | | Pt will take Lantis as | | prescribed | + + documented as of this encounter Visit Diagnoses Not on filedocumented in this encounter"
--- OUTSIDE RECORDS SUMMARY | ~2019-02-17 | XMS | Encounter Summary ---
Demographics + + + | Address | [address] | | | [place] [address] | + + + | Home Phone [...] Team Providers + +------+ + | Care Lump Room Supervisor Name | Role | Phone | [...] Lab Results | | 2018 | | [facility] | DO[address] [facility] | | | | | MEDICAL CLINIC [address] | | | | | | [address] [facility] [place], | | | | | | [place] [address] | | | | | | [phone] | | | +--------+ + + + [...] [place] | | | | | | [address] | | | | | | [phone] | | | | | | | | +--------+---------+ + + + | 02/26/ | Office | Urology | Lillie Fowler | | | 2018 | Visit | | [address] | | | | | | [address] | | | | | | [place], [place] | | | | | | [address] | | | | | | [phone] | | | | | | | | +--------+---------+ + + + | 03/16/ | Office | Neurology | Theresa, | | | 2018 | Visit | | [address] | | | | | | [address] [place], | | | | | | [place] [address] | | | | | | [phone] | | | | | | | [...] [place] | | | | | | [address] | | | | | | | [...] | | | care | | | Millwright Supervisor-C | | | | | | [...] | | | care | | | Millwright Supervisor-C | | | | | | [...] | | | care | | | Millwright Supervisor-C | | | | | | [...] | | | care | | | Millwright Supervisor-C | | | | | | | linical | + +--------+ +---+-----+ + + + | Note: Pt will | | check CBG's daily x1 | | Pt will take Lantis as | | prescribed | + + documented as of this encounter Visit Diagnoses Not on filedocumented in this encounter"
--- OUTSIDE RECORDS SUMMARY | ~2019-02-17 | XMS | Encounter Summary ---
Demographics + + + | Address | [address] | | | [place] [address] | + + + | Home Phone [...] Team Providers + +------+ + | Care Auricular Acupuncturist Name | Role | Phone | + [...] | | | unspecified | [address] | | | | | syncope type | [address], | [place], [place] | | | | | Procedures | [place] | [address] | | | | | MRI Brain | [place], [place] | Phone: | | | | | wo Contrast | [address] | [phone] | | | | | | Phone: | Fax: | | | | | | [phone] | [phone] | | | | | | Fax: | | | | | | | [phone] | | +--------+--------+ + + + + [...] | | | unspecified | [address] | | | | | syncope type | [address], | [place], [place] | | | | | Procedures | [place] | [address] | | | | | MRI Brain | [place], [place] | Phone: | | | | | wo Contrast | [address] | [phone] | | | | | | Phone: | Fax: | | | | | | [phone] | [phone] | | | | | | Fax: | | | | | | | [phone] | | +--------+--------+ + + + + Encounter Details +--------+ + + + + | Date | Type | Department | Care Team | Description | +--------+ + + + + | 05/21/ | Hospital | [place] [facility] | Fabián Carias MD | Syncope, unspecified | | 2019 | Encounter | Hospital MRI [address] | [address] | syncope type | | | | [address] | [address] [place], [place] | | | | | [place], [place] | [address] | | | | | [address] | | | | | | [phone] | | | +--------+ + + + [...] +---------+ + + | clopidogrel | Take 1 tablet by | 90 | 3 | 05/19/19 | | | (PLAVIX) 75 mg | mouth Daily for 90 | tablet | | 19 | 9 [...] +---------+ + + | naproxen | Take 1 tablet by | 180 | 3 | 04/08/19 | | | (NAPROSYN) 500 mg | mouth 2 times daily | tablet | | 19 | 9 | | tabletIndications: | (with breakfast & | | | | | | Primary | dinner). 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, retirement | | | | | | | [...] capsule by | 180 | 1 | 04/08/19 | | | (LYRICA) 300 MG | [...] [place] | | | | | | [address] | | | | | | [phone] | | | | | | | | +--------+---------+ + + + | 02/26/ | Office | Urology | Lillie Fowler | | | 2018 | Visit | | [address]ILLIE Lopez [address] | | | | | | [address] | | | | | | [place], [place] | | | | | | [address] | | | | | | [phone] | | | | | | | | +--------+---------+ + + + | 03/16/ | Office | Neurology | Theresa, | | | 2018 | Visit | | [address] | | | | | | [address] [place], | | | | | | [place] [address] | | | | | | [phone] | | | | | | | | +--------+---------+ + + + | 04/12/ | Office | Primary Care | Massimo Ramos | | | 2019 | Visit | | MD [address] | | | | | | [place] | | | | | | [address] | | | | | | | | +--------+---------+ + + + | 10/03/ | Office | Neurology | Fabián Carias MD | | | 2019 | Visit | | [address] | | | | | | [place] | | | | | | [address] | | | | | | | [...] | | care | | | Special Client [employer] | | | | | | [...] | | care | | | Special Client [employer] | | | | | | [...] | | care | | | Special Client [employer] | | | | | | [...] | | care | | | Special Client [employer] | | | | | | [...] | MRI BRAIN WO | Routin | 05/21/2018 | Syncope, | Results for this | | CONTRAST | e | 2:02 PM | unspecified syncope | procedure are in the | | | | PST | type | results section. | + +--------+ + + + documented in this encounter Results MRI Brain wo Contrast (05/21/2018 2:02 PM [...] CVA COMPARISON STUDY: May 13, 2018, March 16, | | | 2017 TECHNIQUE: Multiplanar multi sequence MRI of the [...] type | + + documented in this encounter"
--- OUTSIDE RECORDS SUMMARY | ~2019-02-17 | XMS | Encounter Summary ---
Demographics + + + | Address | [address] | | | [place] [address] | + + + | Home Phone [...] Team Providers + +------+ + | Care Computational Sciences Professor Name | Role | Phone | [...] + | 10/23/ | Telephone | [facility] | Horacio Silvestre, | Home Health | | 2019 | | [facility] | DO [address] [place] | | | | | [facility] [address] | [facility], [place] | | | | | [address] [place], | [address] | | | | | [place] [address] | [phone] | | | | | [phone] | | | +--------+ + + + [...] [place] | | | | | | [address] | | | | | | [phone] | | | | | | | | +--------+---------+ + + + | 02/26/ | Office | Urology | Lillie Fowler | | | 2018 | Visit | | [address]IE Lopez [address] | | | | | | [address] | | | | | | [place], [place] | | | | | | [address] | | | | | | [phone] | | | | | | | | +--------+---------+ + + + | 03/16/ | Office | Neurology | Theresa, | | | 2018 | Visit | | [address] | | | | | | [address] [place], | | | | | | [place] [address] | | | | | | [phone] | | | | | | | | +--------+---------+ + + + | 04/12/ | Office | Primary Care | Massimo Ramos | | | 2019 | Visit | | MD Fer [address] | | | | | | [address] [place] | | | | | | [address] | | | | | | | | +--------+---------+ + + + | 10/03/ | Office | Neurology | Fabián Carias MD | | | 2019 | Visit | | [address] | | | | | | [place] | | | | | | [address] | | | | | | | [...] | | care | | | Senior Marketing Coordinator-C | | | | | | [...] | | care | | | Senior Marketing Coordinator-C | | | | | | [...] | | care | | | Senior Marketing Coordinator-C | | | | | | [...] | | care | | | Senior Marketing Coordinator-C | | | | | | [...]
--- OUTSIDE RECORDS SUMMARY | ~2019-02-17 | XMS | Encounter Summary ---
Demographics + + + | Address | [address] | | | [place] [address] | + + + | Home Phone [...] Providers + +------+ + | Care Business Support Coordinator Name | Role | Phone | [...] | | [address] [place] | [facility] | | | | | [place], [place] | [place] | | | | | [address] | [address] | | | | | [phone] | [phone] | | | | | | | [...] as outlined above. He presented to the [facility] department on 03/13/10 complaining of abdominal [...] the ab ove outlined medication followup regimen. [facility] Signed and Approved by: ESTEBAN CALVILLO [...] [place] | | | | | | [address] | | | | | | [phone] | | | | | | | | +--------+---------+ + + + | 02/26/ | Office | Urology | Lillie Fowler | | | 2018 | Visit | | [address] | | | | | | [address] | | | | | | [place], [place] | | | | | | [address] | | | | | | [phone] | | | | | | | | +--------+---------+ + + + | 03/16/ | Office | Neurology | Theresa, | | | 2018 | Visit | | [address] | | | | | | [address] [place], | | | | | | [place] [address] | | | | | | [phone] | | | | | | | [...] [place] | | | | | | [address] | | | | | | | [...] | | | care | | | Warranty Administrator-C | | | | | | [...] | | | care | | | Warranty Administrator-C | | | | | | [...] | | | care | | | Warranty Administrator-C | | | | | | [...] | | | care | | | Warranty Administrator-C | | | | | | | linical | + +--------+ +---+-----+ + + + | Note: Pt will | | check CBG's daily x1 | | Pt will take Lantis as | | prescribed | + + documented as of this encounter Visit Diagnoses Not on filedocumented in this encounter"
--- OUTSIDE RECORDS SUMMARY | ~2019-02-17 | XMS | Encounter Summary ---
Demographics + + + | Address | [address] | | | [place] [address] | + + + | Home Phone [...] Team Providers + +------+ + | Care Trip Motor Operator Name | Role | Phone | [...] | | [address] [place], | [address] | | | | | [place] [address] | [phone] | | | | | [phone] | | | +--------+ + + + [...] [place] | | | | | | [address] | | | | | | [phone] | | | | | | | | +--------+---------+ + + + | 02/26/ | Office | Urology | Lillie Fowler | | | 2018 | Visit | | [address] | | | | | | [address] | | | | | | [place], [place] | | | | | | [address] | | | | | | [phone] | | | | | | | | +--------+---------+ + + + | 03/16/ | Office | Neurology | Theresa, | | | 2018 | Visit | | [address] | | | | | | [address] [place], | | | | | | [place] [address] | | | | | | [phone] | | | | | | | | +--------+---------+ + + + | 04/12/ | Office | Primary Care | Massimo Ramos | | | 2019 | Visit | | MD Fer [address] | | | | | | [address] [place], [place] | | | | | | [address] | | | | | | | | +--------+---------+ + + + | 10/03/ | Office | Neurology | Fabián Carias MD | | | 2019 | Visit | | [address] | | | | | | [place] | | | | | | [address] | | | | | | | [...] | | | care | | | Food Service Supervisor-C | | | | | | [...] | | | care | | | Food Service Supervisor-C | | | | | | [...] | | | care | | | Food Service Supervisor-C | | | | | | [...] | | | care | | | Food Service Supervisor-C | | | | | | | linical | + +--------+ +---+-----+ + + + | Note: Pt will | | check CBG's daily x1 | | Pt will take Lantis as | | prescribed | + + documented as of this encounter Visit Diagnoses Not on filedocumented in this encounter"
--- OUTSIDE RECORDS SUMMARY | ~2019-02-17 | XMS | Encounter Summary ---
Demographics + + + | Address | [address] | | | [place] [address] | + + + | Home Phone [...] Team Providers + +------+ + | Care Roughener Name | Role | Phone | + [...] [facility] | DO [address] [place] | | | | | MEDICAL CLIN[facility] [address] | [facility], [place] | | | | | [address] [place], | [address] | | | | | [place] [address] | [phone] | | | | | [phone] | | | +--------+ + + + [...] [place] | | | | | | [address] | | | | | | [phone] | | | | | | | | +--------+---------+ + + + | 02/26/ | Office | Urology | Lillie Fowler | | | 2018 | Visit | | [address] | | | | | | [address] | | | | | | [place], [place] | | | | | | [address] | | | | | | [phone] | | | | | | | | +--------+---------+ + + + | 03/16/ | Office | Neurology | Theresa, | | | 2018 | Visit | | [address] | | | | | | [address] [place], | | | | | | [place] [address] | | | | | | [phone] | | | | | | | | +--------+---------+ + + + | 04/12/ | Office | Primary Care | Massimo Ramos Pedro Luis | | | 2019 | Visit | | MD Fer [address] | | | | | | [place] | | | | | | [address] | | | | | | | | +--------+---------+ + + + | 10/03/ | Office | Neurology | Fabián Carias MD | | | 2019 | Visit | | [address] | | | | | | [place] | | | | | | [address] | | | | | | | [...] | | | care | | | Brick Off Bearer-C | | | | | | | [...] | | | care | | | Brick Off Bearer-C | | | | | | | [...] | | | care | | | Brick Off Bearer-C | | | | | | | [...] | | | care | | | Brick Off Bearer-C | | | | | | | [...]
--- OUTSIDE RECORDS SUMMARY | ~2019-02-17 | XMS | Encounter Summary ---
Demographics + + + | Address | [address] | | | [place] [address] | + + + | Home Phone [...] Team Providers + +------+ + | Care Sourcing Intern Name | Role | Phone | + +------+ + | Ryan Gutiérrez MD | PCP | | + +------+ + Encounter Details +--------+ + + + + | Date | Type | Department | Care Team | Description | +--------+ + + + + | 09/19/ | [facility] | Scott De Oliveira | | | 2016 | Encounter | [facility] | DO [address] | | | | | [address] | [address] | | | | | [address] [place], | [facility], [place] | | | | | [place] [address] | [address] | | | | | [phone] | | | | | | | [...] [place] | | | | | | [address] | | | | | | [phone] | | | | | | | | +--------+---------+ + + + | 02/26/ | Office | Urology | Lillie Fowler | | | 2018 | Visit | | [address] | | | | | | [address] | | | | | | [place] | | | | | | [address] | | | | | | [phone] | | | | | | | | +--------+---------+ + + + | 03/16/ | Office | Neurology | Theresa, | | | 2018 | Visit | | [address] | | | | | | [address] [place], | | | | | | [place] [address] | | | | | | [phone] | | | | | | | | +--------+---------+ + + + | 04/12/ | Office | Primary Care | Massimo Ramos | | | 2019 | Visit | | MD Fer [address] | | | | | | [place] | | | | | | [address] | | | | | | | | +--------+---------+ + + + | 10/03/ | Office | Neurology | Fabián Carias MD | | | 2019 | Visit | | [address] | | | | | | [place] | | | | | | [address] | | | | | | | [...] | | | care | | | Telemarketer Supervisor-C | | | | | | [...] | | | care | | | Telemarketer Supervisor-C | | | | | | [...] | | | care | | | Telemarketer Supervisor-C | | | | | | [...] | | | care | | | Telemarketer Supervisor-C | | | | | | | linical | + +--------+ +---+-----+ + + + | Note: Pt will | | check CBG's daily x1 | | Pt will take Lantis as | | prescribed | + + documented as of this encounter Visit Diagnoses Not on filedocumented in this encounter"
--- OUTSIDE RECORDS SUMMARY | ~2019-02-17 | XMS | Encounter Summary ---
Demographics + + + | Address | [address] | | | [place] [address] | + + + | Home Phone [...] Providers + +------+ + | Care Automobile Body Repair Chief Name | Role | Phone | + +------+ + | Horacio Silvestre DO | PCP | | + +------+ + Reason for Referral Evaluate & Treat (Urgent) + + + + + + + | Status | Reason | Specialty | Diagnoses / | Referred By | Referred To | | | | | Procedures | Contact | Contact | + + + + + + + | Authorized | Specialty | Oncology / | Diagnoses | Guianton[facility], | [facility] | | | Services | Hematology | Mediastinal | Horacio Tim DO | Hematology | | | Required | and Oncology | adenopathy | [address] | Oncology [address] | | | | | | [place], | [address] | | | | | | [place] | [place], [place] | | | | | | [address] | [address] | | | | | | Phone: | Phone: | | | | | | [phone] | [phone] | | | | | | Fax: | Fax: | | | | | | [phone] | [phone] | + + + + + + + Encounter Details +--------+ + + + + | Date | Type | Department | Care Team | Description | +--------+ + + + + | 10/01/ | Orders Only | [facility] | GuiHoracio alvarez [place], | Mediastinal | | 2019 | | [facility] | DO [address] | adenopathy (Primary | | | | MEDICAL CLIN[facility] [address] | [place], [place] | Dx) | | | | [address] [place], | [address] | | | | | [place] [address] | [phone] | | | | | [phone] | | | +--------+ + + + [...] [place] | | | | | | [address] | | | | | | [phone] | | | | | | | | +--------+---------+ + + + | 02/26/ | Office | Urology | Sergio Fowlera | | | 2018 | Visit | | [address] | | | | | | [address] | | | | | | [place] | | | | | | [address] | | | | | | [phone] | | | | | | | | +--------+---------+ + + + | 03/16/ | Office | Neurology | Theresa, | | | 2018 | Visit | | [address] | | | | | | [address] [place], | | | | | | [place] [address] | | | | | | [phone] | | | | | | | | +--------+---------+ + + + | 04/12/ | Office | Primary Care | Massimo Ramos | | | 2019 | Visit | | MD Fer [address] | | | | | | [place] | | | | | | [address] | | | | | | | | +--------+---------+ + + + | 10/03/ | Office | Neurology | Fabián Carias MD | | | 2020 | Visit | | [address] | | | | | | [place] | | | | | | [address] | | | | | | | | +--------+---------+ + + + + + +--------+ + + | Name | Type | Priori | Associated Diagnoses | Order Schedule | | | | ty | | | + + +--------+ + + | * [facility] | Outpatient | STAT | Mediastinal | Ordered: 10/01/2018 | | [facility] | Referral | | adenopathy | | | Referral | | | [...] | | | care | | | Esthetician/Skin Therapist-C | | | | | | [...] | | | care | | | Esthetician/Skin Therapist-C | | | | | | [...] | | | care | | | Esthetician/Skin Therapist-C | | | | | | [...] | | | care | | | Esthetician/Skin Therapist-C | | | | | | [...]
--- OUTSIDE RECORDS SUMMARY | ~2019-02-17 | XMS | Encounter Summary ---
Demographics + + + | Address | [address] | | | [place] [address] | + + + | Home Phone [...] Team Providers + +------+ + | Care Attending Pathologist Name | Role | Phone | + +------+ + | Horacio Silvestre DO | PCP | | + +------+ + Encounter Details +--------+ + + + + | Date | Type | Department | Care Team | Description | +--------+ + + + + | 06/27/ | Procedure | [facility] | Fabián Carias MD | Diabetic | | 2019 | visit | HOSPITAL [facility] | [address] | polyneuropathy | | | | CLINIC [address] | [place], [place] | associated with type | | | | [address] [place], | [address] | 2 diabetes mellitus | | | | [place] [address] | | ([facility]); Type 2 | | | | [phone] | | 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 | | | | | | polyneuropathy, with | | | | | | long-term current | | | | | | use of insulin | | | | | | ([facility]); Numbness | +--------+ + + + + Social [...] [place] | | | | | | [address] | | | | | | [phone] | | | | | | | | +--------+---------+ + + + | 02/26/ | Office | Urology | Lillie Fowler | | | 2018 | Visit | | [address] | | | | | | [address] | | | | | | [place], [place] | | | | | | [address] | | | | | | [phone] | | | | | | | | +--------+---------+ + + + | 03/16/ | Office | Neurology | Theresa, | | | 2018 | Visit | | [address] | | | | | | [address] [place], | | | | | | [place] [address] | | | | | | [phone] | | | | | | | | +--------+---------+ + + + | 04/12/ | Office | Primary Care | Massimo Ramos | | | 2019 | Visit | | MD Fer [address] | | | | | | [place] | | | | | | [address] | | | | | | | | +--------+---------+ + + + | 10/03/ | Office | Neurology | Fabián Carias MD | | | 2019 | Visit | | [address] | | | | | | [place] | | | | | | [address] | | | | | | | [...] | | | care | | | Radiation Protection Engineer-C | | | | | [...] | | | care | | | Radiation Protection Engineer-C | | | | | [...] | | | care | | | Radiation Protection Engineer-C | | | | | [...] | | | care | | | Radiation Protection Engineer-C | | | | | [...] + | EMG STUDY | Routin | 06/27/2018 | Type 2 diabetes | Results for this | | | e | 1:45 PM | mellitus with | procedure are in the | | | | PDT | diabetic | results section. | | | | | polyneuropathy, with | | | | | | long-term current | | | | | | use of insulin (HCC) | | | | | | Numbness | | + +--------+ + + + | EMG STUDY | Routin | 06/27/2018 | Type 2 diabetes | Results for this | | | e | 1:45 PM | mellitus with | procedure are in the | | | | PDT | diabetic | results section. 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
--- OUTSIDE RECORDS SUMMARY | ~2019-02-17 | XMS | Encounter Summary ---
Demographics + + + | Address | [address] | | | [place] [address] | + + + | Home Phone [...] Team Providers + +------+ + | Care Sole Layer Name | Role | Phone | + [...] [facility] | DO [address] [facility] | (Pt requesting a | | | | MEDICAL CLINIC [address] | [facility], [place] | call back DIEUDONNE) | | | | [address] [facility], | [address] | | | | | [place] [address] | [phone] | | | | | [phone] | | | +--------+ + + + [...] [place] | | | | | | [address] | | | | | | [phone] | | | | | | | | +--------+---------+ + + + | 02/26/ | Office | Urology | Lillie Fowler | | | 2018 | Visit | | [address] | | | | | | [address] | | | | | | [place] | | | | | | [address] | | | | | | [phone] | | | | | | | | +--------+---------+ + + + | 03/16/ | Office | Neurology | Theresa, | | | 2018 | Visit | | [address] | | | | | | [address] [place], | | | | | | [place] [address] | | | | | | [phone] | | | | | | | | +--------+---------+ + + + | 04/12/ | Office | Primary Care | Massimo Ramos | | | 2019 | Visit | | MD Fer [address] | | | | | | [place] | | | | | | [address] | | | | | | | | +--------+---------+ + + + | 10/03/ | Office | Neurology | Fabián Carias MD | | | 2019 | Visit | | [address] | | | | | | [place] | | | | | | [address] | | | | | | | [...] | | | care | | | Hog Man-C | | | | | | [...] | | | care | | | Hog Man-C | | | | | | [...] | | | care | | | Hog Man-C | | | | | | [...] | | | care | | | Hog Man-C | | | | | | | linical | + +--------+ +---+-----+ + + + | Note: Pt will | | check CBG's daily x1 | | Pt will take Lantis as | | prescribed | + + documented as of this encounter Visit Diagnoses Not on filedocumented in this encounter"
--- OUTSIDE RECORDS SUMMARY | ~2019-02-17 | XMS | Encounter Summary ---
Demographics + + + | Address | [address] | | | [place] [address] | + + + | Home Phone [...] Providers + +------+ + | Care Hand Striper Name | Role | Phone | + [...] | +--------+ + + + + | 08/21/ | Telephone | [facility] | Horacio Silvestre, | Lab Results | | 2018 | | [facility] | DO [address] [place] | | | | | MEDICAL CLIN[facility] [address] | [facility], [place] | | | | | [address] [place], | [address] | | | | | [place] [address] | [phone] | | | | | [phone] | | | +--------+ + + + [...] [place] | | | | | | [address] | | | | | | [phone] | | | | | | | | +--------+---------+ + + + | 02/26/ | Office | Urology | Lillie Fowler | | | 2018 | Visit | | [address] | | | | | | [address] | | | | | | [place], [place] | | | | | | [address] | | | | | | [phone] | | | | | | | | +--------+---------+ + + + | 03/16/ | Office | Neurology | Theresa, | | | 2018 | Visit | | [address] | | | | | | [address] [place], | | | | | | [place] [address] | | | | | | [phone] | | | | | | | | +--------+---------+ + + + | 04/12/ | Office | Primary Care | Massimo Ramos | | | 2019 | Visit | | MD Fer [address] | | | | | | [address] [place], [place] | | | | | | [address] | | | | | | | | +--------+---------+ + + + | 10/03/ | Office | Neurology | Fabián Carias MD | | | 2019 | Visit | | [address] | | | | | | [place] | | | | | | [address] | | | | | | | [...] | | | care | | | Cable Installation Technician-C | | | | | | [...] | | | care | | | Cable Installation Technician-C | | | | | | [...] | | | care | | | Cable Installation Technician-C | | | | | | [...] | | | care | | | Cable Installation Technician-C | | | | | | | linical | + +--------+ +---+-----+ + + + | Note: Pt will | | check CBG's daily x1 | | Pt will take Lantis as | | prescribed | + + documented as of this encounter Visit Diagnoses Not on filedocumented in this encounter"
--- OUTSIDE RECORDS SUMMARY | ~2019-02-17 | XMS | Encounter Summary ---
Demographics + + + | Address | [address] | | | [place] [address] | + + + | Home Phone [...] Team Providers + +------+ + | Care Solderer Assembler Name | Role | Phone | + +------+ + | Horacio Silvestre DO | PCP | | + +------+ + Reason for Visit +--------+ + | Reason | Comments | +--------+ + | Other | nurse | +--------+ + Encounter Details +--------+ + + + + | Date | Type | Department | Care Team | Description | +--------+ + + + + | 12/03/ | Clinical | [facility] | Ambrose Ashley | | | 2019 | Support | [facility] | MD [address] | | | | | MEDICAL CLINIC [address] | [address] [facility], | | | | | [address]TH [facility], | [place] [address] | | | | | [place] [address] | [phone] | | | | | [phone] | | | | | | | Lizbeth Reddy NP [address] | | | | | | 4TH [facility], | | | | | | [place] [address] | | | | | | [phone] | | | | | | | [...] documented as of this encounter Progress Notes Isadora Aviles RN - 12/03/2018 10:15 AM PDT12/03/18 Geraldo Mcfadden came to the clinic today for nurse talk Patient has oxygen at home he no longer uses, would like [facility] to come pick them up. Conta cted [place], they will come to slat pickler tanks either tomorrow or next week. Only thing patien t needs to do will be to fill out paperwork they have. Nothing is needed by the dr. We were able to provide the following care. Vital Signs: There were no vitals filed for this visit. Isadora Aviles RN documented in this encoun ter Plan of Treatment +--------+---------+ + + + [...] [place] | | | | | | [address] | | | | | | [phone] | | | | | | | | +--------+---------+ + + + | 02/26/ | Office | Urology | Lillie Fowler | | | 2018 | Visit | | [address] | | | | | | [address] | | | | | | [place] | | | | | | [address] | | | | | | [phone] | | | | | | | | +--------+---------+ + + + | 03/16/ | Office | Neurology | Theresa, | | | 2018 | Visit | | [address] | | | | | | [address] [place], | | | | | | [place] [address] | | | | | | [phone] | | | | | | | | +--------+---------+ + + + | 04/12/ | Office | Primary Care | Massimo Ramos | | | 2019 | Visit | | MD Fer [address] | | | | | | [place] | | | | | | [address] | | | | | | | | +--------+---------+ + + + | 10/03/ | Office | Neurology | Fabián Carias MD | | | 2019 | Visit | | [address] | | | | | | [place] | | | | | | [address] | | | | | | | [...] | | | care | | | Emery Grinder-C | | | | | | [...] | | | care | | | Emery Grinder-C | | | | | | [...] | | | care | | | Emery Grinder-C | | | | | | [...] | | | care | | | Emery Grinder-C | | | | | | [...]
--- OUTSIDE RECORDS SUMMARY | ~2019-02-17 | XMS | Encounter Summary ---
Demographics + + + | Address | [address] | | | [place] [address] | + + + | Home Phone [...] Team Providers + +------+ + | Care Hog Cutter Name | Role | Phone | [...] | | | MEDICAL CL[facility] [address] | [facility], [place] | | | | | [address] [place], | [address] | | | | | [place] [address] | [phone] | | | | | [phone] | | | +--------+--------+ + + + [...] [place] | | | | | | [address] | | | | | | [phone] | | | | | | | | +--------+---------+ + + + | 02/26/ | Office | Urology | Lillie Fowler | | | 2018 | Visit | | [address] | | | | | | [address] | | | | | | [place], [place] | | | | | | [address] | | | | | | [phone] | | | | | | | | +--------+---------+ + + + | 03/16/ | Office | Neurology | Theresa, | | | 2018 | Visit | | [address] | | | | | | [address] [place], | | | | | | [place] [address] | | | | | | [phone] | | | | | | | | +--------+---------+ + + + | 04/12/ | Office | Primary Care | Massimo Ramos | | | 2019 | Visit | | MD Fer [address] | | | | | | [address] [place] | | | | | | [address] | | | | | | | | +--------+---------+ + + + | 10/03/ | Office | Neurology | Fabián Carias MD | | | 2019 | Visit | | [address] | | | | | | [place] | | | | | | [address] | | | | | | | [...] | | | care | | | Toe Stripper-C | | | | | | | [...] | | | care | | | Toe Stripper-C | | | | | | | [...] | | | care | | | Toe Stripper-C | | | | | | | [...] | | | care | | | Toe Stripper-C | | | | | | | linical | + +--------+ +---+-----+ + + + | Note: Pt will | | check CBG's daily x1 | | Pt will take [place] as | | prescribed | + + documented as of this encounter Visit Diagnoses Not on filedocumented in this encounter"
--- OUTSIDE RECORDS SUMMARY | ~2019-02-17 | XMS | Encounter Summary ---
Demographics + + + | Address | [address] | | | [place] [address] | + + + | Home Phone [...] Team Providers + +------+ + | Care Model Set Artist Name | Role | Phone | [...] | | [address] [place], | [address] | | | | | [place] [address] | [phone] | | | | | [phone] | | | +--------+ + + + [...] [place] | | | | | | [address] | | | | | | [phone] | | | | | | | | +--------+---------+ + + + | 02/26/ | Office | Urology | Lillie Fowler | | | 2018 | Visit | | [address] | | | | | | [address] | | | | | | [place], [place] | | | | | | [address] | | | | | | [phone] | | | | | | | | +--------+---------+ + + + | 03/16/ | Office | Neurology | Theresa, | | | 2018 | Visit | | [address] | | | | | | [address] [place], | | | | | | [place] [address] | | | | | | [phone] | | | | | | | | +--------+---------+ + + + | 04/12/ | Office | Primary Care | Massimo Ramos | | | 2019 | Visit | | MD [address] | | | | | | [address] [place], [place] | | | | | | [address] | | | | | | | | +--------+---------+ + + + | 10/03/ | Office | Neurology | Fabián Carias MD | | | 2019 | Visit | | [address] | | | | | | [place] | | | | | | [address] | | | | | | | [...] | | care | | | Dairy 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 Farmworker-C | | | | | | | [...] | | care | | | Dairy 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 Farmworker-C | | | | | | | [...] | | care | | | Dairy 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 Farmworker-C | | | | | | | [...] | | care | | | Dairy 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 Farmworker-C | | | | | | | linical | + +--------+ +---+-----+ + + + | Note: Pt will | | check CBG's daily x1 | | Pt will take Lantis as | | prescribed | + + documented as of this encounter Visit Diagnoses Not on filedocumented in this encounter"
--- OUTSIDE RECORDS SUMMARY | ~2019-02-17 | XMS | Encounter Summary ---
Demographics + + + | Address | [address] | | | [place] [address] | + + + | Home Phone [...] Team Providers + +------+ + | Care Lead Press Operator Name | Role | Phone | + +------+ + | Horacio Silvestre DO | PCP | | + +------+ + Reason for Visit + + + | Reason | Comments | + + + | Lab Results | hyperglycemia | + + + Encounter Details +--------+ + + + + | Date | Type | Department | Care Team | Description | +--------+ + + + + | 12/08/ | Telephone | [facility] | Arnaud Franklin | Lab Results | | 2019 | | [facility] | MD [address] | ([facility]) | | | | ONCOLOGY [address] | [address] | | | | | [address] [place], [place] | [place] | | | | | [address] | [address] | | | | | [phone] | [phone] | | | | | | | [...] [place] | | | | | | [address] | | | | | | [phone] | | | | | | | | +--------+---------+ + + + | 02/26/ | Office | Urology | Lillie Fowler | | | 2018 | Visit | | [address] | | | | | | [address] | | | | | | [place], [place] | | | | | | [address] | | | | | | [phone] | | | | | | | | +--------+---------+ + + + | 03/16/ | Office | Neurology | Theresa, | | | 2018 | Visit | | [address] | | | | | | [address] [place], | | | | | | [place] [address] | | | | | | [phone] | | | | | | | | +--------+---------+ + + + | 04/12/ | Office | Primary Care | Massimo Ramos | | | 2019 | Visit | | [address] | | | | | | [place] | | | | | | [address] | | | | | | | | +--------+---------+ + + + | 10/03/ | Office | Neurology | Fabián Carias MD | | | 2019 | Visit | | [address] | | | | | | [place] | | | | | | [address] | | | | | | | [...] | | | care | | | Pediatric Allergist-C | | | | | | | [...] | | | care | | | Pediatric Allergist-C | | | | | | | [...] | | | care | | | Pediatric Allergist-Shivani | | | | | | | [...] | | | care | | | Pediatric Allergist-C | | | | | | | [...]
--- OUTSIDE RECORDS SUMMARY | ~2019-02-17 | XMS | Encounter Summary ---
Demographics + + + | Address | [address] | | | [place] [address] | + + + | Home Phone [...] Team Providers + +------+ + | Care Engine Watchman Name | Role | Phone | + [...] | | | [facility] | Sap Senior Developer-Clinical | | | | | [facility] [place], | | | | | | [place] [address] | | | | | | [phone] | | | +--------+ + + + [...] [place] | | | | | | [address] | | | | | | [phone] | | | | | | | | +--------+---------+ + + + | 02/26/ | Office | Urology | Lillie Fowler | | | 2018 | Visit | | [address] | | | | | | [address] | | | | | | [place], [place] | | | | | | [address] | | | | | | [phone] | | | | | | | | +--------+---------+ + + + | 03/16/ | Office | Neurology | Theresa, | | | 2018 | Visit | | [address] | | | | | | [address] [place], | | | | | | [place] [address] | | | | | | [phone] | | | | | | | | +--------+---------+ + + + | 04/12/ | Office | Primary Care | Massimo Ramos | | | 2019 | Visit | | [address] | | | | | | [place] | | | | | | [address] | | | | | | | | +--------+---------+ + + + | 10/03/ | Office | Neurology | Fabián Carias MD | | | 2019 | Visit | | [address] | | | | | | [place] | | | | | | [address] | | | | | | | [...] | | | care | | | Sap Senior Developer-C | | | | | | [...] | | | care | | | Sap Senior Developer-C | | | | | | [...] | | | care | | | Sap Senior Developer-C | | | | | | [...] | | | care | | | Sap Senior Developer-C | | | | | | [...]
--- OUTSIDE RECORDS SUMMARY | ~2019-02-17 | XMS | Encounter Summary ---
Demographics + + + | Address | [address] | | | [place] [address] | + + + | Home Phone [...] Team Providers + +------+ + | Care Java Developer Architect Name | Role | Phone | [...] [address] | | | | | [phone] | [place] [address] | | +--------+ + + + + [...] [place] | | | | | | [address] | | | | | | [phone] | | | | | | | | +--------+---------+ + + + | 02/26/ | Office | Urology | Lillie Fowler | | | 2018 | Visit | | [address] | | | | | | [address] | | | | | | [place], [place] | | | | | | [address] | | | | | | [phone] | | | | | | | | +--------+---------+ + + + | 03/16/ | Office | Neurology | Theresa, | | | 2018 | Visit | | [address] | | | | | | [address] [place], | | | | | | [place] [address] | | | | | | [phone] | | | | | | | | +--------+---------+ + + + | 04/12/ | Office | Primary Care | Massimo Ramos | | | 2019 | Visit | | [address] | | | | | | [place] | | | | | | [address] | | | | | | | | +--------+---------+ + + + | 10/03/ | Office | Neurology | Fabián Carias MD | | | 2019 | Visit | | [address], [place] | | | | | | [place], [place] | | | | | | [address] | | | | | | | [...] | | | care | | | Professional Volleyball Player-C | | | | | | | [...] | | | care | | | Professional Volleyball Player-C | | | | | | | [...] | | | care | | | Professional Volleyball Player-C | | | | | | | [...] | | | care | | | Professional Volleyball Player-C | | | | | | | [...]
--- OUTSIDE RECORDS SUMMARY | ~2019-02-17 | XMS | Encounter Summary ---
Demographics + + + | Address | [address] | | | [place] [address] | + + + | Home Phone [...] Team Providers + +------+ + | Care E Commerce Web Developer Name | Role | Phone | [...] diabetes | | 2019 | | [facility] | MD [address] | mellitus with other | | | | [facility] [address] | [address] [place], [place] | specified | | | | [address] [place], | [address] | complication, | | | | [place] [address] | | without long-term | | | | [phone] | | current use of | | [...] [place] | | | | | | [address] | | | | | | [phone] | | | | | | | | +--------+---------+ + + + | 02/26/ | Office | Urology | Lillie Fowler | | | 2018 | Visit | | [address] | | | | | | [address] | | | | | | [place], [place] | | | | | | [address] | | | | | | [phone] | | | | | | | | +--------+---------+ + + + | 03/16/ | Office | Neurology | Theresa, | | | 2018 | Visit | | [address] | | | | | | [address] [place], | | | | | | [place] [address] | | | | | | [phone] | | | | | | | | +--------+---------+ + + + | 04/12/ | Office | Primary Care | Massimo Ramos | | | 2019 | Visit | | [address] | | | | | | [place] | | | | | | [address] | | | | | | | | +--------+---------+ + + + | 10/03/ | Office | Neurology | Fabián Carias MD | | | 2019 | Visit | | [address] | | | | | | [place] | | | | | | [address] | | | | | | | [...] | | | | | | insulin ([facility]) | | + +------+--------+ + [...] | | care | | | Clinical Informatics Spec-C | | | | | | | [...] | | care | | | Clinical Informatics Spec-C | | | | | | | [...] | | care | | | Clinical Informatics Spec-C | | | | | | | [...] | | care | | | Clinical Informatics Spec-C | | | | | | | [...]
--- OUTSIDE RECORDS SUMMARY | ~2019-02-17 | XMS | Encounter Summary ---
Demographics + + + | Address | [address] | | | [place] [address] | + + + | Home Phone [...] Team Providers + +------+ + | Care Jumpbasting Canvas Baster Name | Role | Phone | [...] Medication Refill; | | 2017 | | [facility] | [address] | Medication Refill | | | | [facility]ICAL [facility] [address] | [facility], [place] | | | | | [address] [place], | [address] | | | | | [place] [address] | [phone] | | | | | [phone] | | | +--------+--------+ + + + [...] [place] | | | | | | [address] | | | | | | [phone] | | | | | | | | +--------+---------+ + + + | 02/26/ | Office | Urology | Lillie Fowler | | | 2018 | Visit | | [address] | | | | | | [address] | | | | | | [place], [place] | | | | | | [address] | | | | | | [phone] | | | | | | | | +--------+---------+ + + + | 03/16/ | Office | Neurology | Theresa, | | | 2018 | Visit | | [address] | | | | | | [address] [place], | | | | | | [place] [address] | | | | | | [phone] | | | | | | | | +--------+---------+ + + + | 04/12/ | Office | Primary Care | Massimo Ramos | | | 2019 | Visit | | [address] | | | | | | [place] | | | | | | [address] | | | | | | | | +--------+---------+ + + + | 10/03/ | Office | Neurology | Fabián Carias MD | | | 2019 | Visit | | [address] | | | | | | [place] | | | | | | [address] | | | | | | | [...] | | | care | | | It Support Technician-C | | | | | [...] | | | care | | | It Support Technician-C | | | | | [...] | | | care | | | It Support Technician-C | | | | | [...] | | | care | | | It Support Technician-C | | | | | [...] | | unspecified | + + | 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 [...]
--- OUTSIDE RECORDS SUMMARY | ~2019-02-17 | XMS | Encounter Summary ---
Demographics + + + | Address | [address] | | | [place] [address] | + + + | Home Phone [...] Providers + +------+ + | Care Chief Technology Officer Name | Role | Phone | [...] [facility] | DO [address] [place] | | | | | [facility]ICAL [facility] [address] | [facility] [place] | | | | | [address] [place], | [address] | | | | | [place] [address] | [phone] | | | | | [phone] | | | +--------+ + + + [...] [place] | | | | | | [address] | | | | | | [phone] | | | | | | | | +--------+---------+ + + + | 02/26/ | Office | Urology | Lillie Fowler | | | 2018 | Visit | | [address] | | | | | | [address] | | | | | | [place], [place] | | | | | | [address] | | | | | | [phone] | | | | | | | | +--------+---------+ + + + | 03/16/ | Office | Neurology | Theresa, | | | 2018 | Visit | | [address] | | | | | | [address] [place], | | | | | | [place] [address] | | | | | | [phone] | | | | | | | | +--------+---------+ + + + | 04/12/ | Office | Primary Care | Massimo Ramos | | | 2019 | Visit | | MD [address] | | | | | | [place] | | | | | | [address] | | | | | | | | +--------+---------+ + + + | 10/03/ | Office | Neurology | Fabián Carias MD | | | 2019 | Visit | | [address] | | | | | | [place] | | | | | | [address] | | | | | | | [...] | | care | | | Supervisor Wet End-C | | | | | | | [...] | | care | | | Supervisor Wet End-C | | | | | | | [...] | | care | | | Supervisor Wet End-C | | | | | | | [...] | | care | | | Supervisor Wet End-C | | | | | | | [...]
--- OUTSIDE RECORDS SUMMARY | ~2019-02-17 | XMS | Encounter Summary ---
Demographics + + + | Address | [address] | | | [place] [address] | + + + | Home Phone [...] Team Providers + +------+ + | Care Food Service Agent Name | Role | Phone | + +------+ + PCP | Unavailable | + +------+ + Encounter Details +--------+ + + + + | Date | Type | Department | Care Team | Description | +--------+ + + + + | 08/18/ | Hospital | [facility] | Ryan Gutiérrez | | | 2009 | Encounter | HOSPITAL XRAY [address] | [address] | | | | | [place] | [address] | | | | | [place], [place] | [place] [address] | | | | | [address] | [phone] | | | | | [phone] | | | +--------+ + + + [...] [place] | | | | | | [address] | | | | | | [phone] | | | | | | | | +--------+---------+ + + + | 02/26/ | Office | Urology | Lillie Fowler | | | 2018 | Visit | | [address] | | | | | | [address] | | | | | | [place], [place] | | | | | | [address] | | | | | | [phone] | | | | | | | | +--------+---------+ + + + | 03/16/ | Office | Neurology | Theresa, | | | 2018 | Visit | | [address] | | | | | | [address] [place], | | | | | | [place] [address] | | | | | | [phone] | | | | | | | | +--------+---------+ + + + | 04/12/ | Office | Primary Care | Massimo Ramos | | | 2019 | Visit | | MD [address] | | | | | | [place] | | | | | | [address] | | | | | | | | +--------+---------+ + + + | 10/03/ | Office | Neurology | Fabián Carias MD | | | 2019 | Visit | | [address] | | | | | | [place] | | | | | | [address] | | | | | | | [...] | | | care | | | Boom Crane Operator-C | | | | | | [...] | | | care | | | Boom Crane Operator-C | | | | | | [...] | | | care | | | Boom Crane Operator-C | | | | | | [...] | | | care | | | Boom Crane Operator-C | | | | | | | linical | + +--------+ +---+-----+ + + + | Note: Pt will | | check CBG's daily x1 | | Pt will take Lantis as | | prescribed | + + documented as of this encounter Visit Diagnoses Not on filedocumented in this encounter"
--- OUTSIDE RECORDS SUMMARY | ~2019-02-17 | XMS | Encounter Summary ---
Demographics + + + | Address | [address] | | | [place] [address] | + + + | Home Phone [...] Team Providers + +------+ + | Care Beef Pluck Trimmer Name | Role | Phone | + +------+ + | Horacio Silvestre DO | PCP | | + +------+ + Reason for Visit + + + | Reason | Comments | + + + | Medication | | | Management | | + + + Encounter Details +--------+ + + + + | Date | Type | Department | Care Team | Description | +--------+ + + + + | 03/05/ | Telephone | [facility] | Lynn Adames, | Medication | | 2018 | | [facility] | CC STEFFEN HOUSE SUPERVISOR | Management | | | | [facility]ICAL [facility] [address] | | | | | | [address] [facility] [place], | | | | | | [place] [address] | | | | | | [phone] | | | +--------+ + + + [...] [place] | | | | | | [address] | | | | | | [phone] | | | | | | | | +--------+---------+ + + + | 02/26/ | Office | Urology | Lillie Fowler | | | 2018 | Visit | | [address] | | | | | | [address] | | | | | | [place] | | | | | | [address] | | | | | | [phone] | | | | | | | | +--------+---------+ + + + | 03/16/ | Office | Neurology | Theresa, | | | 2018 | Visit | | [address] | | | | | | [address] [place], | | | | | | [place] [address] | | | | | | [phone] | | | | | | | | +--------+---------+ + + + | 04/12/ | Office | Primary Care | Massimo Ramos | | | 2019 | Visit | | [address] | | | | | | [place] | | | | | | [address] | | | | | | | | +--------+---------+ + + + | 10/03/ | Office | Neurology | Fabián Carias MD | | | 2019 | Visit | | [address] | | | | | | [place], [place] | | | | | | [address] | | | | | | | [...] | | | care | | | Polystyrene Bead Molder-C | | | | | | | [...] | | | care | | | Polystyrene Bead Molder-C | | | | | | | [...] | | | care | | | Polystyrene Bead Molder-C | | | | | | | [...] | | | care | | | Polystyrene Bead Molder-C | | | | | | | linical | + +--------+ +---+-----+ + + + | Note: Pt will | | check CBG's daily x1 | | Pt will take Lantis as | | prescribed | + + documented as of this encounter Visit Diagnoses Not on filedocumented in this encounter"
--- OUTSIDE RECORDS SUMMARY | ~2019-02-17 | XMS | Encounter Summary ---
Demographics + + + | Address | [address] | | | [place] [address] | + + + | Home Phone [...] Team Providers + +------+ + | Care Bearingizer Name | Role | Phone | + +------+ + | Ryan Gutiérrez MD | PCP | | + +------+ + Encounter Details +--------+ + + + + | Date | Type | Department | Care Team | Description | +--------+ + + + + | 06/20/ | [facility] | Scott De Oliveira | | | 2017 | Encounter | HOSPITAL GENERAL | DO [address] | | | | | SURGERY [address] | [address] | | | | | [address] [place], | [facility] | | | | | [place] [address] | [address] | | | | | [phone] | [phone] | | | | | | | [...] [place] | | | | | | [address] | | | | | | [phone] | | | | | | | | +--------+---------+ + + + | 02/26/ | Office | Urology | Lillie Fowler | | | 2018 | Visit | | [address] | | | | | | [address] | | | | | | [place] | | | | | | [address] | | | | | | [phone] | | | | | | | | +--------+---------+ + + + | 03/16/ | Office | Neurology | Theresa, | | | 2018 | Visit | | [address] | | | | | | [address] [place], | | | | | | [place] [address] | | | | | | [phone] | | | | | | | | +--------+---------+ + + + | 04/12/ | Office | Primary Care | Massimo Ramos | | | 2019 | Visit | | [address] | | | | | | [place] | | | | | | [address] | | | | | | | | +--------+---------+ + + + | 10/03/ | Office | Neurology | Fabián Carias MD | | | 2019 | Visit | | [address] | | | | | | [place] | | | | | | [address] | | | | | | | [...] | | | care | | | Block Press Operator-C | | | | | | [...] | | | care | | | Block Press Operator-C | | | | | | [...] | | | care | | | Block Press Operator-C | | | | | | [...] | | | care | | | Block Press Operator-C | | | | | | | linical | + +--------+ +---+-----+ + + + | Note: Pt will | | check CBG's daily x1 | | Pt will take Lantis as | | prescribed | + + documented as of this encounter Visit Diagnoses Not on filedocumented in this encounter"
--- OUTSIDE RECORDS SUMMARY | ~2019-02-17 | XMS | Encounter Summary ---
Demographics + + + | Address | [address] | | | [place] [address] | + + + | Home Phone [...] Team Providers + +------+ + | Care Plaster Form Maker Name | Role | Phone | [...] | | | | [place], [place] | [place] [address] | | | | | [address] | [phone] | | | | | [phone] | | | +--------+ + + + [...] [place] | | | | | | [address] | | | | | | [phone] | | | | | | | | +--------+---------+ + + + | 02/26/ | Office | Urology | Lillie Fowler | | | 2018 | Visit | | [address] | | | | | | [address] | | | | | | [place], [place] | | | | | | [address] | | | | | | [phone] | | | | | | | | +--------+---------+ + + + | 03/16/ | Office | Neurology | Theresa, | | | 2018 | Visit | | [address] | | | | | | [address] [place], | | | | | | [place] [address] | | | | | | [phone] | | | | | | | | +--------+---------+ + + + | 04/12/ | Office | Primary Care | Massimo Ramos | | | 2019 | Visit | | [address] | | | | | | [place] | | | | | | [address] | | | | | | | | +--------+---------+ + + + | 10/03/ | Office | Neurology | Fabián Carias MD | | | 2019 | Visit | | [address] | | | | | | [place] | | | | | | [address] | | | | | | | [...] | | | care | | | Sql Ssrs Developer-C | | | | | | [...] | | | care | | | Sql Ssrs Developer-C | | | | | | [...] | | | care | | | Sql Ssrs Developer-C | | | | | | [...] | | | care | | | Sql Ssrs Developer-C | | | | | | | linical | + +--------+ +---+-----+ + + + | Note: Pt will | | check CBG's daily x1 | | Pt will take Lantis as | | prescribed | + + documented as of this encounter Visit Diagnoses Not on filedocumented in this encounter"
--- OUTSIDE RECORDS SUMMARY | ~2019-02-17 | XMS | Encounter Summary ---
Demographics + + + | Address | [address] | | | [place] [address] | + + + | Home Phone [...] Team Providers + +------+ + | Care Veneer Splicer Name | Role | Phone | + [...] Medication Question | | 2018 | | [facility] | [address] | | | | | MEDICAL CL[facility] [address] | [facility] [place] | | | | | [address] [place], | [address] | | | | | [place] [address] | [phone] | | | | | [phone] | | | +--------+ + + + [...] [place] | | | | | | [address] | | | | | | [phone] | | | | | | | | +--------+---------+ + + + | 02/26/ | Office | Urology | Lillie Fowler | | | 2018 | Visit | | [address] | | | | | | [address] | | | | | | [place], [place] | | | | | | [address] | | | | | | [phone] | | | | | | | | +--------+---------+ + + + | 03/16/ | Office | Neurology | Theresa, | | | 2018 | Visit | | [address] | | | | | | [address] [place], | | | | | | [place] [address] | | | | | | [phone] | | | | | | | | +--------+---------+ + + + | 04/12/ | Office | Primary Care | Massimo Ramos Pedro Luis | | | 2019 | Visit | | [address] | | | | | | [place] | | | | | | [address] | | | | | | | | +--------+---------+ + + + | 10/03/ | Office | Neurology | Fabián Carias MD | | | 2019 | Visit | | [address] | | | | | | [place] | | | | | | [address] | | | | | | | [...] | | care | | | Counter Person-C | | | | | | [...] | | care | | | Counter Person-C | | | | | | [...] | | care | | | Counter Person-C | | | | | | [...] | | care | | | Counter Person-C | | | | | | | linical | + +--------+ +---+-----+ + + + | Note: Pt will | | check CBG's daily x1 | | Pt will take Lantis as | | prescribed | + + documented as of this encounter Visit Diagnoses Not on filedocumented in this encounter"
--- OUTSIDE RECORDS SUMMARY | ~2019-02-17 | XMS | Encounter Summary ---
Demographics + + + | Address | [address] | | | [place] [address] | + + + | Home Phone [...] Providers + +------+ + | Care Lead Sales Consultant Name | Role | Phone | + +------+ + | Horacio Silvestre DO | PCP | | + +------+ + Encounter Details +--------+ + + + + | Date | Type | Department | Care Team | Description | +--------+ + + + + | 09/24/ | Vonda Andradee, Faraz J, | Cough | | 2019 | Encounter | HOSPITAL XRAY [address] | DNP [address] | | | | | [address] | [place] [address] | | | | | [place] | [phone] | | | | | [address] | | | | | | [phone] | | | +--------+ + + + [...] | 3 | 09/23/19 | | | (NORVASC) 10 MG | [...] tablets by | 180 | 3 | 09/22/19 | | | (VITAMIN D-3) 1000 | [...] | | | | | | | ([facility]), Multilevel | | | | | [...] [place] | | | | | | [address] | | | | | | [phone] | | | | | | | | +--------+---------+ + + + | 02/26/ | Office | Urology | Lillie Fowler | | | 2018 | Visit | | [address] | | | | | | [address] | | | | | | [place], [place] | | | | | | [address] | | | | | | [phone] | | | | | | | | +--------+---------+ + + + | 03/16/ | Office | Neurology | Theresa, | | | 2018 | Visit | | SHONDA Mckinney [address] | [address] [place], | | | | | | [place] [address] | | | | | | [phone] | | | | | | | | +--------+---------+ + + + | 04/12/ | Office | Primary Care | Massimo Ramos | | | 2019 | Visit | | MD Fer [address] | | | | | | [address] [place] | | | | | | [address] | | | | | | | | +--------+---------+ + + + | 10/03/ | Office | Neurology | Fabián Carias MD | | | 2020 | Visit | | [address] | | | | | | [place] | | | | | | [address] | | | | | | | [...] | | | care | | | [facility] | | | | | | [...] | | | care | | | [facility] | | | | | | [...] | | | care | | | [facility] | | | | | | [...] | | | care | | | [facility] | | | | | | [...] XR CHEST PA AND | Routin | 09/24/2018 | Cough | Results for this | | LATERAL | e | 10:27 AM | | procedure are in the [...] Hypoventilation Increased fluid status compared to August [facility] | | 2018. No pulmonary [...] + | Diagnosis | + + | Cough | + + documented in this encounter Additional Health Concerns + + + + | Infection | Noted Time | Resolved Time | + + + + | Methicillin-resistant Staphylococcus aureus | 07/20/2018 4:00 PM | | | | PDT | | + + + + documented as of this encounter"
--- OUTSIDE RECORDS SUMMARY | ~2019-02-17 | XMS | Encounter Summary ---
Demographics + + + | Address | [address] | | | [place] [address] | + + + | Home Phone [...] Team Providers + +------+ + | Care Radiologist Chief Of Breast Imaging Name | Role | Phone | + +------+ + | Horacio Silvestre DO | PCP | | + +------+ + Reason for Visit + + + | Reason | Comments | + + + | Follow-up | pt states things are going ok, has wrist pain bilateral, has lump | | | on left wrist that is painful. | + + + Encounter Details +--------+---------+ + + + | Date | Type | Department | Care Team | Description | +--------+---------+ + + + | 09/30/ | Office | [facility] | Horacio Silvestre, | Multilevel | | 2018 | Visit | [facility] | DO [address] | degenerative disc | | | | [facility] | [place], [place] | disease (Primary | | | | [address] [facility], | [address] | Dx); Primary | | | | [place] [address] | [phone] | osteoarthritis | | | | [phone] | | involving multiple | | | | | | joints; Essential | | | | | | hypertension; Benign | | | | | | prostatic | | | | | | hyperplasia without | | | | | | lower urinary tract | | | | | | symptoms; Vitamin D | | | | | | deficiency disease; | | | | | | Type 2 diabetes | | | | | | mellitus with | | | | | | diabetic | | | | | | polyneuropathy, with | | | | | | long-term current | | | | | | use of insulin | | | | | | (HCC); nursing home | | | | | | [...] + | Blood Pressure | 140/88 | 09/30/2017 10:00 AM | left arm, regular | | | | PDT | cuff | + + + + + | Pulse | 66 | 09/30/2017 10:00 AM | regular | | | | PDT | | + + + + + | Temperature | 36 C (96.8 F) | 09/30/2017 10:00 AM | | | | | PDT | | + + + + + | Respiratory Rate | 16 | 09/30/2017 10:00 AM | | | | | PDT | | + + + + + | Oxygen Saturation | 91% | 09/30/2017 10:00 AM | | | | | PDT | | + + + + + | Inhaled Oxygen | - | - | | | Concentration | | | | + + + + + | Weight | 96.4 kg (212 lb 9.6 | 09/30/2017 10:00 AM | | | | oz) | PDT | | + + + + + | Height | 167.6 cm (5' 6") | 09/30/2017 10:00 AM | | | | | PDT | | + + + + + | Body Mass Index | 34.31 | 09/30/2017 10:00 AM | | | | | PDT [...] as of this encounter Progress Notes Yesenia Simms CC CMA - 09/30/2017 10:00 AM PDT10/01/17 Geraldo Mcfadden was seen today for ear lavage of bilateral ears. Results of lavage were medium. Patient tolerated well with no complications. Ordering Provider: MARY Flynn CMA Horacio Walsh DO - 09/30/2017 10:00 AM PDT . Patient ID: Geraldo Mcfadden is a 77 y.o. year old male Chief Complaint: Chief Complaint Patient presents with Follow-up pt states things are going ok, has wrist pain bilateral, has lump on left wrist that is p ainful. Assessment and Plan: 1. Multilevel degenerative disc disease Of thoracic and lumbar spine - oxyCODONE 10 MG TABS; Take 1 tablet by mouth 3 times daily as needed for Pain. Dispense: 84 tablet; Refill: 0 - pregabalin (LYRICA) 300 MG capsule; Take 1 capsule by mouth 2 times daily. Dispense: 180 capsule; Refill: 1 2. Primary osteoarthritis involving multiple joints - oxyCODONE 10 MG TABS; Take 1 tablet by mouth 3 times daily as needed for Pain. Dispense: 84 tablet; Refill: 0 3. Essential hypertension - hydroCHLOROthiazide 25 mg tablet; Take 0.5 tablets by mouth Daily. Dispense: 45 tablet; Refill: 3 4. Benign prostatic hyperplasia without lower urinary tract symptoms - tamsulosin (FLOMAX) 0.4 mg CAPS; Take 1 capsule by mouth nightly. Dispense: 90 capsule; Refill: 3 5. Vitamin D deficiency disease - cholecalciferol (VITAMIN D-3) 1,000 units tablet; Take 2 tablets by mouth Daily. Dispens e: 180 tablet; Refill: 3 6. Type 2 diabetes mellitus with diabetic polyneuropathy, with long-term current use of ins ulin (HCC) - insulin glargine (LANTUS) 100 units/mL injection (vial); Inject 35 Units under the skin n ightly. Dispense: 3 vial; Refill: 5 7. nursing home current use of opiate analgesic - oxyCODONE 10 MG TABS; Take 1 tablet by mouth 3 times daily as needed for Pain. Dispense: 84 tablet; Refill: 0 Subjective: Wrist Pain There was no injury mechanism. The pain is present in the left wrist and right wrist. The q uality of the pain is described as burning. The pain does not radiate. The pain is moderate. The pain has been constant since the incident. Nothing aggravates the symptoms. Back Pain This is a chronic problem. The current episode started more than 1 year ago. The problem oc curs constantly. The problem is unchanged. The pain is present in the lumbar spine. The qual ity of the pain is described as burning. The pain is moderate. The pain is the same all the time. He has tried analgesics for the symptoms. The treatment provided moderate relief. Ear Fullness This is a new problem. The current episode started 1 to 4 weeks ago. The problem occurs con stantly. The problem has been unchanged. Nothing aggravates the symptoms. He has tried nothi ng for the symptoms. Allergies: Allergies Allergen Reactions Zolpidem Anaphylaxis Past [...] REMOVAL; Surgeon: Tay Kern MD; Location: [facility]ul [employer] MOHS [...] skin nightly. 3 vial 5 levothyroxine (SYNTHROID) 175 MCG tablet Take 1 [...] Review of Systems Musculoskeletal: Positive for back pain. Objective: Vitals: BP 140/88 Comment: left arm, regular cuff | Pulse 66 Comment: regular | Temp 36 C (96.8 F) (Tympanic) | Resp 16 | Ht 1.676 m (5' 6") | Wt 96.4 kg (212 lb 9.6 oz) | SpO2 91% | BMI 34.31 kg/m Physical Exam Constitutional: He appears well-developed and well-nourished. No distress. HENT: Right Ear: Decreased hearing is noted. Left Ear: Decreased hearing is noted. B/l cerumen impaction Cardiovascular: Normal rate, regular rhythm and normal heart sounds. Exam reveals no berman p and no friction rub. No murmur heard. Pulmonary/Chest: Effort normal and breath sounds normal. No respiratory distress. He has no wheezes. He has no rales. Musculoskeletal: Right wrist: He exhibits tenderness and deformity. Left wrist: He exhibits tenderness and deformity. Thoracic back: He exhibits tenderness and pain. Lumbar back: He exhibits tenderness and pain. Nursing note and vitals reviewed. documented in [...] [place] | | | | | | [address] | | | | | | [phone] | | | | | | | | +--------+---------+ + + + | 02/26/ | Office | Urology | MalcolmLillie | | | 2018 | Visit | | [address] | | | | | | [address] | | | | | | [place] | | | | | | [address] | | | | | | [phone] | | | | | | | | +--------+---------+ + + + | 03/16/ | Office | Neurology | Theresa, | | | 2018 | Visit | | [address] | | | | | [address] [place], | | | | | | [place] [address] | | | | | | [phone] | | | | | | | | +--------+---------+ + + + | 04/12/ | Office | Primary Care | Massimo Ramos | | | 2019 | Visit | | MD Fer [address] | | | | | | [place] | | | | | | [address] | | | | | | | | +--------+---------+ + + + | 10/03/ | Office | Neurology | Fabián Carias MD | | | 2020 | Visit | | [address] | | | | | | [place], [place] | | | | | | [address] | | | | | | | [...] | | care | | | Medical Lab Specialist-C | | | | | | [...] | | care | | | Medical Lab Specialist-C | | | | | | [...] | | care | | | Medical Lab Specialist-C | | | | | | [...] | | care | | | Medical Lab Specialist-C | | | | | | [...] | site unspecified | + + | Primary osteoarthritis involving multiple joints | + + | Essential hypertension Unspecified essential hypertension | + + | Benign prostatic hyperplasia without lower urinary tract symptoms | + + | Vitamin D deficiency disease Unspecified vitamin D deficiency | + + | Type 2 diabetes mellitus with diabetic polyneuropathy, 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) | + + | roasterman current use of opiate analgesic Encounter for long-term (current) use of | | other medications | + + documented in this encounter
--- OUTSIDE RECORDS SUMMARY | ~2019-02-17 | XMS | Encounter Summary ---
Demographics + + + | Address | [address] | | | [place] [address] | + + + | Home Phone [...] Team Providers + +------+ + | Care Sweatband Shaper Name | Role | Phone | + [...] + + + + | 11/16/ | Emergency | [facility] | Macario Sibley | Cellulitis of right | | 2018 | | [facility] | Scott DO [address] | lower extremity | | | | [address] | [address] | (Primary Dx) | | | | [place], [place] | [place] [address] | | | | | [address] | [phone] | | | | | [phone] | | | +--------+ + + + [...] + + + | Blood Pressure | 142/74 | 11/16/2017 11:45 AM | | | | | PDT | | + + + + + | Pulse | 66 | 11/16/2017 11:45 AM | | | | | PDT | | + + + + + | Temperature | 36.8 C (98.2 F) | 11/16/2017 11:45 AM | | | | | PDT | | + + + + + | Respiratory Rate | 18 | 11/16/2017 12:00 PM | | | | | PDT | | + + + + + | Oxygen Saturation | 98% | 11/16/2017 11:45 AM | | | | | PDT | | + + + + + | Inhaled Oxygen | - | - | | | Concentration | | | | + + + + + | Weight | 90.7 kg (200 lb) | 11/16/2017 9:42 AM | | | | | PDT | | + + + + + | Height | 167.6 cm (5' 6") | 11/16/2017 9:42 AM | | | | | PDT | | + + + + + | Body Mass Index | 32.28 | 11/16/2017 9:42 AM | | | [...] documented as of this encounter Discharge Instructions Macario Barrientos DO - 11/16/2017Follow up with your primary provider. AttachmentsThe following attachments cannot be sent through Care Everywhere.Skin Infection, Cellulitis (Italian)documented in this encounter Medications at Time of [...] + + + +---------+ + + | cephalexin | Take 2 capsules by | 40 | 0 | 11/17/19 | | | (KEFLEX) 500 mg | mouth 2 times daily | capsule | | 18 | 8 | | capsule | for 10 days. | | | | | + + + +---------+ + + | cholecalciferol | Take 2 tablets by | 180 | 3 | 10/01/19 | | | (VITAMIN D-3) 1,000 | mouth Daily. | tablet | | 18 | 8 | | units | | | | | | | tabletIndications: | | | | | | | Vitamin D deficiency | | | | | | | [...] + +---------+ + + | | Take 0.5 tablets by | 45 | 3 | 10/01/19 | | | hydroCHLOROthiazide | mouth Daily. | tablet | | 18 | 8 | | 25 mg | | | | | | | tabletIndications: | | | | | | | Essential | | | | | | | hypertension | | | | | | + [...] | | | | use of insulin ([facility]) | | | | | | [...] | | | | use of insulin ([facility]) | | | | | | [...] tablet by | 84 | 0 | 11/01/19 | | | TABSIndications: | mouth 3 times daily | tablet | | 18 | 8 | | Multilevel | as needed for Pain. 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, [facility]PC | | | | | | | [...] capsule by | 180 | 1 | 11/01/19 | | | (LYRICA) 300 MG | [...] [place] | | | | | | [address] | | | | | | [phone] | | | | | | | | +--------+---------+ + + + | 02/26/ | Office | Urology | Lillie Fowler | | | 2018 | Visit | | [address] | | | | | | [address] | | | | | | [place], [place] | | | | | | [address] | | | | | | [phone] | | | | | | | | +--------+---------+ + + + | 03/16/ | Office | Neurology | Theresa, | | | 2018 | Visit | | [address] | | | | | [address] [place], | | | | | | [place] [address] | | | | | | [phone] | | | | | | | | +--------+---------+ + + + | 04/12/ | Office | Primary Care | Massimo Ramos | | | 2019 | Visit | | MD Fer [address] | | | | | | [address] [place], [place] | | | | | | [address] | | | | | | | | +--------+---------+ + + + | 10/03/ | Office | Neurology | Fabián Carias MD | | | 2020 | Visit | | [address] | | | | | | [place] | | | | | | [address] | | | | | | | | +--------+---------+ + + + + +------+--------+ + + | Name | Type | Priori | Associated Diagnoses | Date/Time | | | | ty | | | + +------+--------+ + + | ED INFORMATION | BRIT | Routin | | 11/16/2017 9:40 AM | | EXCHANGE | | e [...] | | | care | | | Mobile Crane Operator-C | | | | | [...] | | | care | | | Mobile Crane Operator-C | | | | | [...] | | | care | | | Mobile Crane Operator-C | | | | | [...] | | | care | | | Mobile Crane Operator-C | | | | | [...] + +--------+ + + + | VAS LOWER EXTREMITY | STAT | 11/16/2017 | | Results for this | | VENOUS RIGHT | | 10:56 AM | | procedure are in the | | | | PDT | | results section. | + +--------+ + + + | URIC ACID | Routin | 11/16/2017 | | Results for this | | | e | 10:25 AM | | procedure are in the | | | | PDT | | results section. | + +--------+ + + + | ED INFORMATION | Routin | 11/16/2017 | | | | EXCHANGE | e | 9:40 AM | | | | | | PDT | | | + +--------+ + + + +---+--------+ | | | | | Proced | | | ure | | | Note - | | | Randa, | | | Lab In | | | | | | Hlseve | | | n - | | | | | | 2018 | | | 9:41 | | | AM PDT | | [...] | | | FICATI | | | ON?08/ | | | 12/201 | | | 8 | | | 09:40? | | | MCFADDEN, | | | KENNET | | | H | | | J?MRN: | | | | | | [id number] | | | [id number] | | | ecurit | | | [...] | | | RN, | | | KILBOU | | | RN, | | | HORACIO | | | S | | | STANLE | | | Y, | | | D.O. | | | Family | | | | | | Medici | | | ne | | | ([phone]) | | | [phone] | | | [...] | | | int | | | Aug | | | [...] | | swolle | | | n May | | | 15, | | [...] | +---+--------+ documented in this encounter Results VAS Lower Extremity Venous Right (11/16/2017 10:56 AM PDT) + + | Specimen | + + | | + + + + + | Impressions | Performed At | + + + | IMPRESSION: No deep venous thrombosis. Dictated by: Troy Hughes [facility] | | [place] | | | AM | | + + + + + + | Narrative | Performed At | + + + | EXAMINATION: VAS LOWER EXTREMITY VENOUS RIGHT HISTORY: LEG | [facility] | | SWELLING COMPARISON STUDY: None FINDINGS: Color Doppler | | | interrogation of the deep venous system demonstrates compressibility, | | | flow and augmentation. Calf veins are patent. . | | + + + + + | Procedure Note | + + | Randa, Rad Results In - 11/16/2017 11:35 AM PDT EXAMINATION:VAS LOWER EXTREMITY VENOUS | | RIGHTHISTORY:LEG SWELLINGCOMPARISON STUDY:NoneFINDINGS:Color Doppler interrogation of | | the deep venous system demonstrates compressibility, flow and augmentation. Calf veins | | are patent. .IMPRESSION: IMPRESSION:No deep venous thrombosis.Dictated by: Troy | | [place] | | | |COMPARISON STUDY: | |None | | | |FINDINGS: | |Color Doppler interrogation of the deep venous system demonstrates compressibility, flow an d augmentation. Calf veins are patent. . | | | |IMPRESSION: | |IMPRESSION: | |No deep venous thrombosis. | | | |Dictated by: Troy Lawrence | | | | | + + + +---------+ + + | Performing | Address | City/State/Zipcode | Phone Number | | Organization | | | | + +---------+ + + | [facility] | | | | + +---------+ + + Uric Acid (11/16/2017 10:25 AM PDT) + +---------+ + + + | Component | Value | Ref Range | Performed | Pathologist | | | | | At | Signature | + +---------+ + + + | Uric Acid | 7.0 (H) | 2.0 - 5.5 mg/dL | [facility] | | | | [...] + + | [facility] | [address] | [place] [address] | [phone] | | [facility] | | | | + + + + + documented in this encounter Visit Diagnoses + + | Diagnosis | + + | Cellulitis of right lower extremity - Primary Cellulitis and abscess of leg, except | | foot | + + documented in this encounter
--- OUTSIDE RECORDS SUMMARY | ~2019-02-17 | XMS | Encounter Summary ---
Demographics + + + | Address | [address] | | | [place] [address] | + + + | Home Phone [...] Team Providers + +------+ + | Care Weaving Instructor Name | Role | Phone | [...] | [address] [place], [place] | [place] [address] | | | | | [address] | [phone] | | | | | [phone] | | | +--------+ + + + [...] [place] | | | | | | [address] | | | | | | [phone] | | | | | | | | +--------+---------+ + + + | 02/26/ | Office | Urology | Lillie Fowler | | | 2018 | Visit | | [address]IE [address] | | | | | | [address] | | | | | | [place] | | | | | | [address] | | | | | | [phone] | | | | | | | | +--------+---------+ + + + | 03/16/ | Office | Neurology | Theresa, | | | 2018 | Visit | | [address] | | | | | [address] [place], | | | | | | [place] [address] | | | | | | [phone] | | | | | | | | +--------+---------+ + + + | 04/12/ | Office | Primary Care | Massimo Ramos | | | 2019 | Visit | | MD Fer [address] | | | | | | [place] | | | | | | [address] | | | | | | | | +--------+---------+ + + + | 10/03/ | Office | Neurology | Fabián Carias MD | | | 2019 | Visit | | [address] | | | | | | [place] | | | | | | [address] | | | | | | | [...] | | care | | | It Project Coordinator-C | | | | | [...] | | care | | | It Project Coordinator-C | | | | | [...] | | care | | | It Project Coordinator-C | | | | | [...] | | care | | | It Project Coordinator-C | | | | | [...] - 1.030 | EXTERNAL | | | [place], | | | LAB | | | [...] | | | 4:50 p.m. JOB #: [id number] Read By: MASSIMO Hughes | | Antonieta [...] Dr. Diana at 4:50 p.m. JOB #: [id number] Read By: | | MASSIMO NUNEZ MD [...] | | | | | |JOB #: [id number] | | | |Read By: MASSIMO NUNEZ MD | | | |Released By: MASSIMO NUNEZ MD | |Date: 10/15/2015 11:45 | | | | | + + documented in this encounter Visit Diagnoses Not on filedocumented in this encounter"
--- OUTSIDE RECORDS SUMMARY | ~2019-02-17 | XMS | Encounter Summary ---
Demographics + + + | Address | [address] | | | [place] [address] | + + + | Home Phone | | + + + | Preferred Language | Unknown | + + + | Marital Status | | + + + | Hoahaoism Affiliation | 1025 | + + + | Race | Unknown | + + + | Ethnic Group | Unknown | + + + Author + + + | Author | [facility] | | | and [place] | + + + | Organization | [facility] | | [...] Team Providers + +------+ + | Care Bone Char Puller Name | Role | Phone | + [...] Financial Concerns | | 2019 | | [facility] | [facility] [address] | | | | | MEDICAL CLIN[facility] [address] | [place] [address] | | | | [address] [place], | [phone] | | | | | [place] [address] | | | | | | [phone] | | | +--------+ + + + [...] [place] | | | | | | [address] | | | | | | [phone] | | | | | | | | +--------+---------+ + + + | 02/26/ | Office | Urology | Lillie Fowler | | | 2018 | Visit | | [address]IE [address] | | | | | | [address] | | | | | | [place], [place] | | | | | | [address] | | | | | | [phone] | | | | | | | | +--------+---------+ + + + | 03/16/ | Office | Neurology | Theresa, | | | 2018 | Visit | | [address] | | | | | | [address] [place], | | | | | | [place] [address] | | | | | | [phone] | | | | | | | | +--------+---------+ + + + | 04/12/ | Office | Primary Care | Richard Massimo Pedro Luis | | | 2019 | Visit | | MD Fer [address] | | | | | | [place] | | | | | | [address] | | | | | | | | +--------+---------+ + + + | 10/03/ | Office | Neurology | Fabián Carias MD | | | 2019 | Visit | | [address] | | | | | | [place] | | | | | | [address] | | | | | | | [...] | | care | | | Business Analytics Specialist-C | | | | | | [...] | | care | | | Business Analytics Specialist-C | | | | | | [...] | | care | | | Business Analytics Specialist-C | | | | | | [...] | | care | | | Business Analytics Specialist-C | | | | | | [...]
--- OUTSIDE RECORDS SUMMARY | ~2019-02-17 | XMS | Encounter Summary ---
Demographics + + + | Address | [address] | | | [place] [address] | + + + | Home Phone [...] Team Providers + +------+ + | Care Prison Officer Name | Role | Phone | [...] diabetes | | 2018 | | [facility] | DO [address] | mellitus with | | | | MEDICAL CLIN[facility] [address] | [place], [place] | diabetic | | | | [address] [place], | [address] | polyneuropathy, with | | | | [place] [address] | [phone] | long-term current | | | | [phone] | | use of insulin (HCC) | [...] [place] | | | | | | [address] | | | | | | [phone] | | | | | | | | +--------+---------+ + + + | 02/26/ | Office | Urology | Lillie Fowler | | | 2018 | Visit | | [address] | | | | | | [address] | | | | | | [place] | | | | | | [address] | | | | | | [phone] | | | | | | | | +--------+---------+ + + + | 03/16/ | Office | Neurology | Theresa, | | | 2018 | Visit | | [address] | | | | | | [address] [place], | | | | | | [place] [address] | | | | | | [phone] | | | | | | | | +--------+---------+ + + + | 04/12/ | Office | Primary Care | Massimo Ramos | | | 2019 | Visit | | MD Fer [address] | | | | | | [place] | | | | | | [address] | | | | | | | | +--------+---------+ + + + | 10/03/ | Office | Neurology | Fabián Carias MD | | | 2019 | Visit | | [address] | | | | | | [place], [place] | | | | | | [address] | | | | | | | [...] | | | care | | | Compounder-C | | | | | | | [...] | | | care | | | Compounder-C | | | | | | | [...] | | | care | | | Compounder-C | | | | | | | [...] | | | care | | | Compounder-C | | | | | | | [...] | [facility] | | | | mg/dL [id number] - | | HOSPITAL | | | | 129 mg/dL Near | | REGION[facility] | | | | [id number] - 159 mg/dL | | MEDICAL | | | | [id number] - 189 | | CENTER LAB | [...] [address] | [place] [address] | [phone] | | [facility] | | | [...] + + | [facility] | [address] | [place] [address] | [phone] | | [facility] | | | [...] + + + | [facility] | [address] [place] [address] | [place] [address] | [phone] | | [facility] | | | | | MEDICAL [...] | mL/min/1.73m2 | [facility] | | | BULGARIAN | RATE,ESTIMATED | | HOSPITAL | | | | mL/min/1.13b7Vpye than | | REGIONAL | | | [...] + + + | [facility] | [address] [place] [address] | [place] [address] | [phone] | | [facility] | | | | | [...]
--- OUTSIDE RECORDS SUMMARY | ~2019-02-17 | XMS | Encounter Summary ---
Demographics + + + | Address | [address] | | | [place] [address] | + + + | Home Phone [...] Team Providers + +------+ + | Care Stringer Machine Tender Name | Role | Phone | + +------+ + | Horacio Silvestre DO | PCP | | + +------+ + Reason for Visit + + + | Reason | Comments | + + + | Neck Pain | | + + + | Back Pain | | + + + | Neuropathy | | + + + Evaluate & Treat (Routine) +--------+--------+ + + + + | Status | Reason | Specialty | Diagnoses / | Referred By | Referred To | | | | | Procedures | Contact | Contact | +--------+--------+ + + + + | Closed | | Neurology | Diagnoses | [facility] | Carias, | | | | | Other | [facility] | Fabián Panda MD | | | | | amnesia | MEDICAL | [address] | | | | | | [address] | [place] | | | | | | [place] | [facility] | | | | | | [address] | [address] Phone: | | | | | | [address] | [phone] | | | | | | [place]ARC[place]O [place] | Fax: | | | | | | [address] | [phone] | | | | | | Phone: | | | | | | | [phone] | | | | | | | Fax: | | | | | | | [phone] | | +--------+--------+ + + + + Encounter Details +--------+---------+ + + + | Date | Type | Department | Care Team | Description | +--------+---------+ + + + | 04/30/ | Office | [facility] | Theresa, | Chronic neck and | | 2019 | Visit | [facility] | Rylane, STUDIO PRODUCER [address] | back pain (Primary | | | | CLIN[facility] [address] [place], | Dx); Hx of transient | | | | [place], | [place] [address] | ischemic attack | | | | [place] [address] | [phone] | (TIA); Diabetic | | | | [phone] | | polyneuropathy | | | | | | associated with type | | | | | | 2 diabetes mellitus | | | | | | (HCC); Chronic | | | | | | bilateral low back | | | | | | pain without | | | | | | sciatica; Neck pain, | | | | | | chronic; Strain of | | | | | | muscle, fascia and | | | | | | tendon of lower | | | | | | back, sequela | +--------+---------+ + + + Social History [...] + + + | Blood Pressure | 118/90 | 04/30/2018 9:27 AM | | | | | PST | | + + + + + | Pulse | 79 | 04/30/2018 9:27 AM | | | | | PST | | + + + + + | Temperature | - | - | | + + + + + | Respiratory Rate | 18 | 04/30/2018 9:27 AM | | | | | PST | | + + + + + | Oxygen Saturation | 93% | 04/30/2018 9:27 AM | | | | | PST | | + + + + + | Inhaled Oxygen | - | - | | | Concentration | | | | + + + + + | Weight | 100.7 kg (222 lb) | 04/30/2018 9:27 AM | | | | | PST | | + + + + + | Height | 167.4 cm (5' 5.9") | 04/30/2018 9:27 AM | | | | | PST | | + + + + + | Body Mass Index | 35.94 | 04/30/2018 9:27 AM | | | | | PST [...] of this encounter Patient Instructions Patient Instructions TheresaHank juanSHONDA - 04/30/2018 9:45 AM PSTFormatting of this no te might be different from the original. For your nerve pain in your feet: Gian Emu Oil IcyHot/Biofreeze/Aspecream CBD Oil Sunlight on feet General Neck and Back Pain Both neck [...] are taking other medicines. You may use mdth-bdz-vatohwh medicine to control pain, unless another pain [...] by your healthcare provider Date Last Reviewed: 10/06/201519993496-2498 [employer]. [address] [place] [address]. All righ ts reserved. This information is not intended as a substitute for professional medical care. Always follow your healthcare professional's instructions. Back Pain (Acute or Chronic) Back pain is one of the most common problems. The good news is that most people feel better in 1 to 2 weeks, and most of the rest in 1 to 2 months. Most people can remain active. People who have paindescribe it differently noteveryone is the same. The pain can be sharp, stabbing, shooting, aching, cramping or burning. Movement, standing, bending, lifting, sitting, or walking may worsen pain. It can be localized to one spot or area, or it can be more generalized. It can spread or radiate upwards, to the front, or go down your arms or legs (sciatica). It can cause muscle spasm. Most of the time, mechanical problems with the musclesor spine cause the pain. Mechanical problemsare usually caused by an injury to the muscles or ligaments. While illness can ca use back pain, it is usually not caused by a serious illness. Mechanical problems include: Physical activity such as sports, exercise, work, or normal activity Overexertion, lifting, pushing, pulling incorrectly or too aggressively Sudden twisting, bending, or stretching from an accident, or accidental movement Poor posture Stretching or moving wrong, without noticing pain at the time Poor coordination, lack of regular exercise (check with your doctor about this) Spinal disc disease or arthritis Stress Pain can also be related to , or illness like appendicitis, bladder or kidney infe ctions, pelvic infections, and many other things. Acute back pain usually gets better in1 to 2 weeks. Back pain related to disk disease, ar thritis in the spinal joints or spinal stenosis (narrowing of the spinal canal) can become c hronic and last for months or years. Unless you had a physical injury (for example, a car accident or fall) X-rays are usually n ot needed for the initial evaluation of back pain. If pain continues and does not respond to medical treatment, X-rays and other tests may be needed. Home care Try these home care recommendations: When in bed, tryto find a position of comfort. A firm mattress is best. Try lying flat on your back with pillows under your knees. You can also try lying on your side with your k nees bent up towards your chest and a pillow between your knees. At first, do not try to stretch out the sore spots. If there is a strain, it is not like the good soreness you get after exercising without an injury. In this case, stretching may make it worse. Don't sit for long periods, as in a long car ride or during othertravel. This puts mor e stress on the lower back than standing or walking. During the first 24 to 72 hours after an acute injury or flare up of chronic back pain, apply an ice pack to the painful area for 20 minutes and then remove it for 20 minutes. Do t his over a period of 60 to 90 minutes or several times a day. This will reduce swelling and pain. Wrap the ice pack in a thin towel or plastic to protect your skin. You can start with ice, then switch to heat. Heat (hot shower, hot bath, or heating pad) reduces pain and works well for muscle spasms. Heat can be applied to the painful area for 20 minutes then remove it for 20 minutes. Do this over a period of 60 to 90 minutes or sever al times a day. Do not sleep on a heating pad. It can lead to skin parra or tissue damage. You can alternate ice and heat therapy. Talk with your doctor aboutthe best treatment for your back pain. Therapeutic massage can help relax the back muscles without stretching them. Be aware of safe lifting methods and do not lift anything without stretching first. Medicines Talk to your doctor before using medicine, especially if you have other medical problems or are taking other medicines. You may use rrfn-all-irfraja medicine as directed on the bottle to control pain, unless another pain medicine was prescribed. If you have chronic conditions like diabetes, liver or kidney disease, stomach ulcers, or gastrointestinal bleeding, or are taking blood thinners, talk to your doctor before taking any medicine. Be careful if you are given a prescription medicines, narcotics, or medicine for muscle spasms. They can cause drowsiness, affect your coordination, reflexes, and judgement. Do not drive or operate heavy machinery. Follow-up care Follow up with your healthcare provider, or as advised. A radiologist will review any X-rays that were taken. Your provide will notify you of any n ew findings that may affect your care. Call 911 Call 911 if any of the following occur: Trouble breathing Confusion Very drowsy or trouble awakening Fainting or loss of consciousness Rapid or very slow heart rate Loss of bowel or bladder control When to seek medical advice Call your healthcare provider right away if any of these occur: Pain becomes worse or spreads to your legs Weakness or numbness in one or both legs Numbness in the groin or genital area Date Last Reviewed: 10/06/201519994662-2693 [employer]. [address] [place] [address]. All righ ts reserved. This information is not intended as a substitute for professional medical care. Always follow your healthcare professional's instructions. Symptoms of a Stroke A sudden feeling of weakness on one side of your body may be a sign that you are having a s troke. During a stroke, blood stops flowing to part of the brain. This can damage areas in the bra in that control the rest of the body. Call 911 and get help right away if any of these sympt oms come on suddenly, even if the symptoms don t last. Know the symptoms of a stroke Weakness. You may feel a sudden weakness, tingling, or a loss of feeling on one side of your face or body including your arm or leg. Vision problems. You may have sudden double vision or trouble seeing in one or both eyes . Speech problems. You may have sudden trouble talking, slurred speech, or problems unders tanding others. Headache. You may have a sudden, severe headache. Movement problems. You may have sudden trouble walking, dizziness, a feeling of spinning , a loss of balance, a feeling of falling, or blackouts. Seizure. You may also have a seizure with a large or hemorrhagic stroke. F.A.S.T. Remember: If you have any of these symptoms, call 911 and your doctor as soon as possible. F.A.S.T. is an easy way to remember the signs of a stroke. When you see these signs, you wi ll know that you need to call 911 fast. F.A.S.T. stands for: F is for face drooping. One side of the face is drooping or numb. When the person smiles , the smile is uneven. A is for arm weakness. One arm is weak or numb. When the person lifts both arms at the s chaparro time, one arm may drift downward. S is for speech difficulty. You may notice slurred speech or difficulty speaking. The pe rson can't repeat a simple sentence correctly when asked. T is for time to dial 911. If someone shows any of these symptoms, even if they go away, call 911 right away. Make note of the time the symptoms first appeared. Date Last Reviewed: 05/08/201719990451-9628 [employer]. [address] [place] [address]. All [facility] ts reserved. This information is not [...] you take. This includes prescription an d jifj-tvu-nrfxefq medicines, vitamins, and herbs. Ask if any of the medicines may be causin g your problems. Don't make any changes to prescription medicines without talking to your he althcare provider first. You may be prescribed medicines [...] speaking, walking, or seeing Date Last Reviewed: 06/05/201719992529-1218 [employer]. [address] [place] [address]. All righ ts reserved. This information is not intended as a substitute for professional medical care. Always follow your healthcare professional's instructions. documented in this encounter Progress Notes Hank Cardenas FNP - 04/30/2018 9:45 AM PST Patient: Geraldo Mcfadden Medical Record: [id number] Date of Services: 04/30/2018 Referring Doctor: Horacio Silvestre DO Chief Complaint: Peripheral neuropathy, chronic neck and back pain, history of CVA/TIA History of Present Illness: The patient presents to the Neurology Clinic today for follow u p. 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 The patient reports that he never became symp tomatic with this. He is currently taking aspirin 325 mg daily for stroke prophylaxis. He is also taking Lipitor and losartan to help manage his high cholesterol and blood pressure. His risk factors for stroke include obesity, diabetes, hypertension, hyperlipidemia and age . He is working with his primary care provider to monitor these risk factors. The patient also has a history of peripheral neuropathy due to his underlying diabetes. Th e patient reports that his pain is the worst in the evening. He is currently taking Lyrica 300 mg twice daily to help with his neuropathic pain. He reports that after he takes his Ly gayatri in the evening his symptoms are very tolerable. The patient also has a history of chronic neck and back pain. He is taking duloxetine 60 m g daily, oxycodone 10 mg 3 times daily as needed and Lyrica 300 mg twice daily for neuropath ic symptoms. These medications are prescribed by his PCP. He has had a trigger point injec tion done in February 2018 with some relief of his symptoms for a few weeks. The patient wo uld like to try this injection again to see if he might get a better result with the second set of injections. Encounter Problem List Chronic neck and back pain (Primary) Hx of transient ischemic attack (TIA) Overview: 04/10/15 MRI of Brain: No evidence of acute intracranial process.Mild white matter disea se is likely related to chronic small vessel ischemic change. Remote right cerebellar lacuna r infarct. Mild age-related volume loss. 11/08/16 MRI of Brain: No acute finding.Small lacunar right cerebellar infarct redemonst rated unchanged. Mild white matter changes nonspecific but most typically associated with mi crovascular disease. Diabetic polyneuropathy associated with type 2 diabetes mellitus (HCC) Chronic bilateral low back pain without sciatica Overview: 04/03/17 EM01/30/18 MRI of Lumbar Spine: There is multilevel degenerative change of the spine as se quentially detailed above. Correlation with dermatomal distribution of symptoms is recommend ed 02/19/18 Lumbar TPI: bilateral paraspinal L5/S1 and paraspinal L3/4 muscles. Orders: - Trigger Point Injection Procedure Neck pain, chronic Overview: 01/30/18 MRI of Cervical Spine: Multilevel degenerative change of the cervical spine as sequentially detailed above.Correlation with dermatomal distribution of symptoms is recomm ended.Remote right cerebellar lacunar infarct. Strain of muscle, fascia and tendon of lower back, sequela - Trigger Point Injection Procedure Past Surgical History: Procedure Laterality Date APPENDECTOMY CATARACT REMOVAL Right 04/28/2017 Procedure: CATARACT REMOVAL; Surgeon: Tay Kern MD; Location: [facility] [place] [facility] SURGERY Left L ear melanoma Ventral incisional hernia repair Allergies Allergen Reactions Zolpidem Anaphylaxis Current Medications: albuterol aspirin atorvaSTATin colchicine cyanocobalamin DULoxetine fluticasone hydroCHLOROthiazide insulin aspart insulin glargine levothyroxine levothyroxine losartan naproxen omeprazole ondansetron oxyCODONE pregabalin tamsulosin testosterone tiotropium traZODone urea Review of Symptoms: CONSTITUTIONAL: No weight loss, fever, chills, weakness or fatigue. HEENT: Eyes: No visual loss, blurred vision, double vision or yellow sclerae. Ears, Nose, Throat: No hearing loss, sneezing, congestion, runny nose or sore throat. SKIN: No rash or itching. CARDIOVASCULAR: No chest pain, chest pressure or chest discomfort. No palpitations or edema . RESPIRATORY: No shortness of breath, cough or sputum. GASTROINTESTINAL: No anorexia, nausea, vomiting or diarrhea. No abdominal pain or blood. GENITOURINARY: No burning on urination. NEUROLOGICAL: No headache, dizziness, syncope, paralysis, ataxia. No change in bowel or claudia dder control. + neuropathy, Hx of TIA/CVA MUSCULOSKELETAL: No muscle, joint pain or stiffness. + Chronic neck and back pain PSYCHIATRIC: No depression or anxiety. Neurological Examination: Vitals: 04/30/18 0927 BP: 118/90 Pulse: 79 Resp: 18 PainSc: 4 PainLoc: Back Mental status: The patient is alert, attentive, and oriented. Speech is clear and fluent with good repetit ion, comprehension, and naming. Cranial nerves: CN II: Visual avila are full to confrontation. Fundoscopic exam is normal with sharp discs and no vascular changes. Pupils are 4 mm and briskly reactive to light with accomodation. CN III, IV, : Gaze in conjugate. No blurred or double vision. No visual field cuts. EOM intact. CN V: Facial sensation is intact. CN VII: Face is symmetric with normal eye closure and smile. CN VII: Hearing is normal to rubbing fingers CN IX, X: Palate elevates symmetrically. Phonation is normal. CN XI: Head turning and shoulder shrug are intact CN XII: Tongue is midline with normal movements and no atrophy. Motor: There is no pronator drift of out-stretched arms. Muscle bulk and tone are normal. Strength is 5/5 bilaterally. Reflexes: Reflexes are trace to absent throughout Sensory: Light touch, pinprick, position sense, and vibration sense are impaired in bilateral lower extremities in stocking distribution up to the ankles Coordination: Rapid alternating movements and fine finger movements are intact. There is no dysmetria on hlbvxp-vi-spwq and nicp-qoge-lurk. There are no abnormal or extraneous movements. Romberg is absent. Gait/Stance: Wide-based stance, unable to tandem gait Clinical Impression: ICD-10-CM ICD-9-CM 1. Chronic neck and back pain M54.2 723.1 M54.9 724.5 G89.29 2. Hx of transient ischemic attack (TIA) Z86.73 V12.54 3. Diabetic polyneuropathy associated with type 2 diabetes mellitus (HCC) E11.42 250.60 357.2 4. Chronic bilateral low back pain without sciatica M54.5 724.2 Trigger Point Injection Pro cedure G89.29 338.29 5. Neck pain, chronic M54.2 723.1 G89.29 338.29 6. Strain of muscle, fascia and tendon of lower back, sequela S39.012S 846.9 Trigger Point Injection Procedure Plan: Chronic neck and back pain: Continue pain management with primary care provider. Plan for trigger point injection of the lumbar spine to be done after May 22, 2018. We also di scussed home exercise routine and stretching which can help relieve the pain. Peripheral neuropathy: Continue using Lyrica 300 mg twice daily to help with neuropathic pa in. Discussed the use of anodyne therapy, Gian Emu Oil, CBD oil and other jowa-olu-fcjgqes c sunni which can help with pain. History of TIA/CVA: The patient is currently taking aspirin 325 mg daily for stroke prophy laxis. He is also taking Lipitor and losartan to manage his cholesterol and blood pressure. He will continue to work with his PCP to manage his modifiable stroke risk factors. Plan to follow up with Dr. Carias in 6-7 months. SHONDA Richard Electronically signed This note was transcribed using voice recognition software. There may be speech recognitio n errors which escaped detection during review. documented in thi s encounter Plan of Treatment +--------+---------+ + + [...] [place] | | | | | | [address] | | | | | | [phone] | | | | | | | | +--------+---------+ + + + | 02/26/ | Office | Urology | Lillie Fowler | | | 2018 | Visit | | LILLIE Lopez [address] | | | | | | [address] | | | | | | [place] | | | | | | [address] | | | | | | [phone] | | | | | | | | +--------+---------+ + + + | 03/16/ | Office | Neurology | Theresa, | | | 2018 | Visit | | SHONDA M[address] | | | | | [address] [place], | | | | | | [place] [address] | | | | | | [phone] | | | | | | | | +--------+---------+ + + + | 04/12/ | Office | Primary Care | Massimo Ramos | | | 2019 | Visit | | MD Fer [address] | | | | | | [address] [place] | | | | | | [address] | | | | | | | | +--------+---------+ + + + | 10/03/ | Office | Neurology | Fabián Carias MD | | | 2019 | Visit | | [address] | | | | | | [place] | | | | | | [address] | | | | | | | | +--------+---------+ + + + + + +--------+ + + | Name | Type | Priori | Associated Diagnoses | Order Schedule | | | | ty | | | + + +--------+ + + | Trigger Point | Procedures | Routin | Strain of muscle, | Ordered: 04/30/2018 | | Injection Procedure | | e | fascia and tendon of | | | | | | lower back, sequela | | | | | | Chronic bilateral | | | | | | low back pain | | | | | | without sciatica | | + + +--------+ + + [...] | | | care | | | Insulation Board Back Tender-C | | | | | | | [...] | | | care | | | Insulation Board Back Tender-C | | | | | | | [...] | | | care | | | Insulation Board Back Tender-C | | | | | | | [...] | | | care | | | Insulation Board Back Tender-C | | | | | | | linical | + +--------+ +---+-----+ + + + | Note: Pt will | | check CBG's daily x1 | | Pt will take Lantis as | | prescribed | + + documented as of this encounter Visit Diagnoses + + | Diagnosis | + + | Chronic neck and back pain - Primary | + + | Hx of transient ischemic attack (TIA) Transient ischemic attack (TIA), and cerebral | | infarction without residual deficits | + + | Diabetic polyneuropathy associated with type 2 diabetes mellitus (HCC) | + + | Chronic bilateral low back pain without sciatica | + + | Neck pain, chronic Cervicalgia | + + | Strain of muscle, fascia and tendon of lower back, sequela | + + documented in this encounter
--- OUTSIDE RECORDS SUMMARY | ~2019-02-17 | XMS | Encounter Summary ---
Demographics + + + | Address | [address] | | | [place] [address] | + + + | Home Phone | | + + + | Preferred Language | Unknown | + + + | Marital Status | | + + + | Jew Affiliation | 1025 | + + + | Race | Unknown | + + + | Ethnic Group | Unknown | + + + Author + + + | Author | [facility] | | | and [place] | + + + | Organization | [facility] | | | [...] Team Providers + +------+ + | Care Piece Goods Packer Name | Role | Phone | [...] 07/27/ | Telephone | [facility] | Lizbeth Reddy NP | Medication | | 2019 | | [facility] | [address] | Management | | | | [facility] [address] | [facility], [place] | | | | | [address] [facility], | [address] | | | | | [place] [address] | [phone] | | | | | [phone] | | | +--------+ + + + [...] [place] | | | | | | [address] | | | | | | [phone] | | | | | | | | +--------+---------+ + + + | 02/26/ | Office | Urology | Lillie Fowler | | | 2018 | Visit | | LILLIE [address] | | | | | [address] | | | | | | [place], [place] | | | | | | [address] | | | | | | [phone] | | | | | | | | +--------+---------+ + + + | 03/16/ | Office | Neurology | Theresa, | | | 2018 | Visit | | SHONDA Mck[address]ney [address] | | | | | [address] [place], | | | | | | [place] [address] | | | | | | [phone] | | | | | | | | +--------+---------+ + + + | 04/12/ | Office | Primary Care | Massimo Ramos | | | 2019 | Visit | | MD Fer [address] | | | | | | [address] [place], [place] | | | | | | [address] | | | | | | | | +--------+---------+ + + + | 10/03/ | Office | Neurology | Fabián Carias MD | | | 2019 | Visit | | [address] | | | | | | [place], [place] | | | | | | [address] | | | | | | | [...] | | | care | | | Cloud Subject Matter Expert-C | | | | | | [...] | | | care | | | Cloud Subject Matter Expert-C | | | | | | [...] | | | care | | | Cloud Subject Matter Expert-C | | | | | | [...] | | | care | | | Cloud Subject Matter Expert-C | | | | | | [...]
--- OUTSIDE RECORDS SUMMARY | ~2019-02-17 | XMS | Encounter Summary ---
Demographics + + + | Address | [address] | | | [place] [address] | + + + | Home Phone [...] Team Providers + +------+ + | Care Driver Wheelchair Name | Role | Phone | + [...] | | | CENTER [address] | [facility] | | | | | DR [place], [place] | [place] [address] | | | | | [address] | [phone] | | | | | [phone] | | | +--------+ + + + [...] [place] | | | | | | [address] | | | | | | [phone] | | | | | | | | +--------+---------+ + + + | 02/26/ | Office | Urology | Lillie Fowler | | | 2018 | Visit | | [address]IE [address] | | | | | | [address] | | | | | | [place] | | | | | | [address] | | | | | | [phone] | | | | | | | | +--------+---------+ + + + | 03/16/ | Office | Neurology | Theresa, | | | 2018 | Visit | | [address] | | | | | | [address] [place], | | | | | | [place] [address] | | | | | | [phone] | | | | | | | | +--------+---------+ + + + | 04/12/ | Office | Primary Care | Massimo Ramos | | | 2019 | Visit | | MD [facility] [address] | | | | | | [place] | | | | | | [address] | | | | | | | | +--------+---------+ + + + | 10/03/ | Office | Neurology | Fabián Carias MD | | | 2019 | Visit | | [address] | | | | | | [place] | | | | | | [address] | | | | | | | [...] | | | care | | | Cellophane Casting Machine Repairer-C | | | | | | [...] | | | care | | | Cellophane Casting Machine Repairer-C | | | | | | [...] | | | care | | | Cellophane Casting Machine Repairer-C | | | | | | [...] | | | care | | | Cellophane Casting Machine Repairer-C | | | | | | | linical | + +--------+ +---+-----+ + + + | Note: Pt will | | check CBG's daily x1 | | Pt will take Lantis as | | prescribed | + + documented as of this encounter Visit Diagnoses Not on filedocumented in this encounter"
--- OUTSIDE RECORDS SUMMARY | ~2019-02-17 | XMS | Encounter Summary ---
Demographics + + + | Address | [address] | | | [place] [address] | + + + | Home Phone [...] Providers + +------+ + | Care Hand Outside Cutter Name | Role | Phone | [...] | DME | | 2019 | | [facility] | DO [address] | | | | | MEDICAL CL[facility] [address] | [place], [place] | | | | | [address] [place], | [address] | | | | | [place] [address] | [phone] | | | | | [phone] | | | +--------+ + + + [...] [place] | | | | | | [address] | | | | | | [phone] | | | | | | | | +--------+---------+ + + + | 02/26/ | Office | Urology | Lillie Fowler | | | 2018 | Visit | | [address] | | | | | | [address] | | | | | | [place], [place] | | | | | | [address] | | | | | | [phone] | | | | | | | | +--------+---------+ + + + | 03/16/ | Office | Neurology | Theresa, | | | 2018 | Visit | | [address] | | | | | | [address] [place], | | | | | | [place] [address] | | | | | | [phone] | | | | | | | | +--------+---------+ + + + | 04/12/ | Office | Primary Care | Massimo Ramos | | | 2019 | Visit | | MD [address] | | | | | | [address] [place], [place] | | | | | | [address] | | | | | | | | +--------+---------+ + + + | 10/03/ | Office | Neurology | Fabián Carias MD | | | 2019 | Visit | | [address] | | | | | | [place] | | | | | | [address] | | | | | | | [...] | | care | | | Labor Economist-C | | | | | | | [...] | | care | | | Labor Economist-C | | | | | | | [...] | | care | | | Labor Economist-C | | | | | | | [...] | | care | | | Labor Economist-C | | | | | | | [...]
--- OUTSIDE RECORDS SUMMARY | ~2019-02-17 | XMS | Encounter Summary ---
Demographics + + + | Address | [address] | | | [place] [address] | + + + | Home Phone [...] Providers + +------+ + | Care Supervisor Maintenance And Custodians Name | Role | Phone | + [...] | Encounter | [facility] | Lin, CENTER MEDICAL SPECIALIST [address] | | | | | CENTER [address] | [address] [place] | | | | | [address] [place] | [address] | | | | | [address] | [phone] | | | | | [phone] | | | +--------+ + + + [...] [place] | | | | | | [address] | | | | | | [phone] | | | | | | | | +--------+---------+ + + + | 02/26/ | Office | Urology | Lillie Fowler | | | 2018 | Visit | | [address] | | | | | | [address] | | | | | | [place] | | | | | | [address] | | | | | | [phone] | | | | | | | | +--------+---------+ + + + | 03/16/ | Office | Neurology | Theresa, | | | 2018 | Visit | | [address] | | | | | | [address] [place], | | | | | | [place] [address] | | | | | | [phone] | | | | | | | | +--------+---------+ + + + | 04/12/ | Office | Primary Care | Massimo Ramos | | | 2019 | Visit | | MD [facility] [address] | | | | | | [place] | | | | | | [address] | | | | | | | | +--------+---------+ + + + | 10/03/ | Office | Neurology | Fabián Carias MD | | | 2019 | Visit | | [address] | | | | | | [place] | | | | | | [address] | | | | | | | [...] | | | care | | | Remotely Piloted Vehicle Controller-C | | | | | | | [...] | | | care | | | Remotely Piloted Vehicle Controller-C | | | | | | | [...] | | | care | | | Remotely Piloted Vehicle Controller-C | | | | | | | [...] | | | care | | | Remotely Piloted Vehicle Controller-C | | | | | | | [...] posteriorly projecting disk osteophyte. | | | Oykjrqiq-rg-etjiyfbbn canal width is approximately 10 mm. | [...] provide additional information. Job#: | | | [id number] Read By: DREW GARZA MD Released By: [...] mild posteriorly projecting disk osteophyte. | | Lnwmzcrf-qt-ubnahuedx canal width is approximately 10 mm. Foraminal [...] | carotids may provide additional information. Job#: [id number] Read By: | | DREW GARZA MD Released By: DREW GARZA MDDate: 11/24/2014 20:03 | | | |C4-5: Disk space narrowing is present with mild endplate sclerosis. No canal narrowing is seen. No foraminal narrowing evident. | | | |C5-6: Disk space narrowing is present with mild posteriorly projecting disk osteophyte. A evdmqlv-qq-cbclipmvf canal width is approximately 10 mm. Foraminal [...]
--- OUTSIDE RECORDS SUMMARY | ~2019-02-17 | XMS | Encounter Summary ---
Demographics + + + | Address | [address] | | | [place] [address] | + + + | Home Phone [...] Team Providers + +------+ + | Care Sld Teacher Name | Role | Phone | [...] Medication Refill | | 2017 | | [facility] | DO [address] | | | | | MEDICAL CLIN[address] | [facility], [place] | | | | | [address] [place], | [address] | | | | | [place] [address] | [phone] | | | | | [phone] | | | +--------+--------+ + + + [...] [place] | | | | | | [address] | | | | | | [phone] | | | | | | | | +--------+---------+ + + + | 02/26/ | Office | Urology | Lillie Fowler | | | 2018 | Visit | | [address] | | | | | | [address] | | | | | | [place], [place] | | | | | | [address] | | | | | | [phone] | | | | | | | | +--------+---------+ + + + | 03/16/ | Office | Neurology | Theresa, | | | 2018 | Visit | | [address] | | | | | | [address] [place], | | | | | | [place] [address] | | | | | | [phone] | | | | | | | | +--------+---------+ + + + | 04/12/ | Office | Primary Care | Massimo Ramos | | | 2019 | Visit | | MD [facility] [address] | | | | | | [place] | | | | | | [address] | | | | | | | | +--------+---------+ + + + | 10/03/ | Office | Neurology | Fabián Carias MD | | | 2019 | Visit | | [address] | | | | | | [place] | | | | | | [address] | | | | | | | [...] | | care | | | Strip 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-C | | | | | [...] | | care | | | Strip 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-C | | | | | [...] | | care | | | Strip 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-C | | | | | [...] | | care | | | Strip 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-C | | | | | | | linical | + +--------+ +---+-----+ + + + | Note: Pt will | | check CBG's daily x1 | | Pt will take Lantis as | | prescribed | + + documented as of this encounter Visit Diagnoses Not on filedocumented in this encounter"
--- OUTSIDE RECORDS SUMMARY | ~2019-02-17 | XMS | Encounter Summary ---
Demographics + + + | Address | [address] | | | [place] [address] | + + + | Home Phone [...] Team Providers + +------+ + | Care Hedis Nurse Name | Role | Phone | [...] [facility] | DO [address] | | | | | MEDICAL CLIN[facility] [address] | [facility], [place] | | | | | [address] [place], | [address] | | | | | [place] [address] | [phone] | | | | | [phone] | | | +--------+ + + + [...] [place] | | | | | | [address] | | | | | | [phone] | | | | | | | | +--------+---------+ + + + | 02/26/ | Office | Urology | Lillie Fowler | | | 2018 | Visit | | [address] | | | | | | [address] | | | | | | [place], [place] | | | | | | [address] | | | | | | [phone] | | | | | | | | +--------+---------+ + + + | 03/16/ | Office | Neurology | Theresa, | | | 2018 | Visit | | [address] | | | | | | [address] [place], | | | | | | [place] [address] | | | | | | [phone] | | | | | | | | +--------+---------+ + + + | 04/12/ | Office | Primary Care | Massimo Ramos | | | 2019 | Visit | | MD Fer [address] | | | | | | [place] | | | | | | [address] | | | | | | | | +--------+---------+ + + + | 10/03/ | Office | Neurology | Fabián Carias MD | | | 2019 | Visit | | [address] | | | | | | [place] | | | | | | [address] | | | | | | | [...] | | | care | | | Real Estate Rep-C | | | | | | [...] | | | care | | | Real Estate Rep-C | | | | | | [...] | | | care | | | Real Estate Rep-C | | | | | | [...] | | | care | | | Real Estate Rep-C | | | | | | [...]
--- OUTSIDE RECORDS SUMMARY | ~2019-02-17 | XMS | Encounter Summary ---
Demographics + + + | Address | [address] | | | [place] [address] | + + + | Home Phone [...] Team Providers + +------+ + | Care Graduate Research Assistant Name | Role | Phone | [...] [facility] | [address] | | | | | MEDICAL CLINIC [address] | [facility], [place] | | | | | [address] [place], | [address] | | | | | [place] [address] | [phone] | | | | | [phone] | | | +--------+ + + + [...] [place] | | | | | | [address] | | | | | | [phone] | | | | | | | | +--------+---------+ + + + | 02/26/ | Office | Urology | Lillie Fowler | | | 2018 | Visit | | [address] | | | | | | [address] | | | | | | [place], [place] | | | | | | [address] | | | | | | [phone] | | | | | | | | +--------+---------+ + + + | 03/16/ | Office | Neurology | Theresa, | | | 2019 | Visit | | [address] | | | | | | [address] [place], | | | | | | [place] [address] | | | | | | [phone] | | | | | | | | +--------+---------+ + + + | 04/12/ | Office | Primary Care | Massimo Ramos | | | 2019 | Visit | | MD Fer [address] | | | | | | [place] | | | | | | [address] | | | | | | | | +--------+---------+ + + + | 10/03/ | Office | Neurology | Fabián Carias MD | | | 2019 | Visit | | [address] | | | | | | [place] | | | | | | [address] | | | | | | | [...] | | | care | | | Career Based Intervention Coordinator-C | | | | | | [...] | | | care | | | Career Based Intervention Coordinator-C | | | | | | [...] | | | care | | | Career Based Intervention Coordinator-C | | | | | | [...] | | | care | | | Career Based Intervention Coordinator-C | | | | | | | linical | + +--------+ +---+-----+ + + + | Note: Pt will | | check CBG's daily x1 | | Pt will take Lantis as | | prescribed | + + documented as of this encounter Visit Diagnoses Not on filedocumented in this encounter"
--- OUTSIDE RECORDS SUMMARY | ~2019-02-17 | XMS | Encounter Summary ---
Demographics + + + | Address | [address] | | | [place] [address] | + + + | Home Phone [...] Providers + +------+ + | Care Vacuum Form Operator Name | Role | Phone | [...] | | | | [place], [place] | [place] [address] | | | | | [address] | [phone] | | | | | [phone] | | | +--------+ + + + [...] [place] | | | | | | [address] | | | | | | [phone] | | | | | | | | +--------+---------+ + + + | 02/26/ | Office | Urology | Lillie Fowler | | | 2018 | Visit | | [address] | | | | | | [address] | | | | | | [place], [place] | | | | | | [address] | | | | | | [phone] | | | | | | | | +--------+---------+ + + + | 03/16/ | Office | Neurology | Theresa, | | | 2018 | Visit | | [address] | | | | | | [address] [place], | | | | | | [place] [address] | | | | | | [phone] | | | | | | | | +--------+---------+ + + + | 04/12/ | Office | Primary Care | Massimo Ramos | | | 2019 | Visit | | MD Fer [address] | | | | | | [place] | | | | | | [address] | | | | | | | | +--------+---------+ + + + | 10/03/ | Office | Neurology | Fabián Carias MD | | | 2019 | Visit | | [address] | | | | | | [place] | | | | | | [address] | | | | | | | [...] | care | | | Director Of Donor Relations-C | | | | | | | [...] | care | | | Director Of Donor Relations-C | | | | | | | [...] | care | | | Director Of Donor Relations-C | | | | | | | [...] | care | | | Director Of Donor Relations-C | | | | | | | linical | + +--------+ +---+-----+ + + + | Note: Pt will | | check CBG's daily x1 | | Pt will take Lantis as | | prescribed | + + documented as of this encounter Visit Diagnoses Not on filedocumented in this encounter"
--- OUTSIDE RECORDS SUMMARY | ~2019-02-17 | XMS | Encounter Summary ---
Demographics + + + | Address | [address] | | | [place] [address] | + + + | Home Phone [...] Team Providers + +------+ + | Care Armament Repairer Name | Role | Phone | [...] [facility] | DO [address] | (PT CAME IN PERSON ) | | | | [facility] [address] | [facility], [place] | | | | | [address] [place], | [address] | | | | | [place] [address] | [phone] | | | | | [phone] | | | +--------+--------+ + + + [...] [place] | | | | | | [address] | | | | | | [phone] | | | | | | | | +--------+---------+ + + + | 02/26/ | Office | Urology | Lillie Fowler | | | 2018 | Visit | | [address] | | | | | | [address] | | | | | | [place], [place] | | | | | | [address] | | | | | | [phone] | | | | | | | | +--------+---------+ + + + | 03/16/ | Office | Neurology | Theresa, | | | 2018 | Visit | | [address] | | | | | | [address] [place], | | | | | | [place] [address] | | | | | | [phone] | | | | | | | | +--------+---------+ + + + | 04/12/ | Office | Primary Care | Massimo Ramos | | | 2019 | Visit | | MD [address] | | | | | | [place] | | | | | | [address] | | | | | | | | +--------+---------+ + + + | 10/03/ | Office | Neurology | Fabián Carias MD | | | 2019 | Visit | | [address] | | | | | | [place] | | | | | | [address] | | | | | | | [...] | | | care | | | Public Health Analyst-C | | | | | | [...] | | | care | | | Public Health Analyst-C | | | | | | [...] | | | care | | | Public Health Analyst-C | | | | | | [...] | | | care | | | Public Health Analyst-C | | | | | | | linical | + +--------+ +---+-----+ + + + | Note: Pt will | | check CBG's daily x1 | | Pt will take Lantis as | | prescribed | + + documented as of this encounter Visit Diagnoses Not on filedocumented in this encounter"
--- OUTSIDE RECORDS SUMMARY | ~2019-02-17 | XMS | Encounter Summary ---
Demographics + + + | Address | [address] | | | [place] [address] | + + + | Home Phone [...] Providers + +------+ + | Care Yarn Finisher Name | Role | Phone | [...] [place], [place] | | | | | [address] | [address] | | | | | [phone] | [phone] | | | | | | | [...] for elective component separation incisional hernia rep [facility]. He underwent the procedure on the day [...] advanced on a diet. [facility] day [facility]5 tolerating a [...] 4. History of hypertension. 5. Postoperative anemia. [facility] Signed and Approved by: LISA TAYLOR [...] [place] | | | | | | [address] | | | | | | [phone] | | | | | | | | +--------+---------+ + + + | 02/26/ | Office | Urology | Lillie Fowler | | | 2018 | Visit | | [address] | | | | | | [address] | | | | | | [place] | | | | | | [address] | | | | | | [phone] | | | | | | | | +--------+---------+ + + + | 03/16/ | Office | Neurology | Theresa, | | | 2018 | Visit | | [address] | | | | | | [facility] [place], | | | | | | [place] [address] | | | | | | [phone] | | | | | | | | +--------+---------+ + + + | 04/12/ | Office | Primary Care | Massimo Ramos | | | 2019 | Visit | | MD Fer [address] | | | | | | [place] | | | | | | [address] | | | | | | | | +--------+---------+ + + + | 10/03/ | Office | Neurology | Fabián Carias MD | | | 2019 | Visit | | [address] | | | | | | [place] | | | | | | [address] | | | | | | | [...] | | | care | | | Household Manager-C | | | | | | [...] | | | care | | | Household Manager-C | | | | | | [...] | | | care | | | Household Manager-C | | | | | | [...] | | | care | | | Household Manager-C | | | | | | [...] - 1.030 | EXTERNAL | | | [place], | | | LAB | | | [...]
--- OUTSIDE RECORDS SUMMARY | ~2019-02-17 | XMS | Encounter Summary ---
Demographics + + + | Address | [address] | | | [place] [address] | + + + | Home Phone [...] Team Providers + +------+ + | Care Room Manager Name | Role | Phone | + +------+ + | Horacio Silvestre DO | PCP | | + +------+ + Reason for Visit +--------+ + | Reason | Comments | +--------+ + | Other | Please call | +--------+ + Encounter Details +--------+ + + + + | Date | Type | Department | Care Team | Description | +--------+ + + + + | 05/07/ | Telephone | [place] [facility] | Horacio Silvestre, | Other (Please call ) | | 2018 | | [facility] | DO [address] | | | | | MEDICAL CLINIC [address] | [facility], [place] | | | | | [address] [place], | [address] | | | | | [place] [address] | [phone] | | | | | [phone] | | | +--------+ + + + [...] [place] | | | | | | [address] | | | | | | [phone] | | | | | | | | +--------+---------+ + + + | 02/26/ | Office | Urology | Lillie Fowler | | | 2018 | Visit | | [address] | | | | | | [address] | | | | | | [place] | | | | | | [address] | | | | | | [phone] | | | | | | | | +--------+---------+ + + + | 03/16/ | Office | Neurology | Theresa, | | | 2018 | Visit | | [address] | | | | | | [address] [place], | | | | | | [place] [address] | | | | | | [phone] | | | | | | | | +--------+---------+ + + + | 04/12/ | Office | Primary Care | Massimo Ramos | | | 2019 | Visit | | MD Fer [address] | | | | | | [place] | | | | | | [address] | | | | | | | | +--------+---------+ + + + | 10/03/ | Office | Neurology | Fabián Carias MD | | | 2020 | Visit | | [address] | | | | | | [place], [place] | | | | | | [address] | | | | | | | [...] | | | care | | | Cloth Mercerizer Operator-C | | | | | | [...] | | | care | | | Cloth Mercerizer Operator-C | | | | | | [...] | | | care | | | Cloth Mercerizer Operator-C | | | | | | [...] | | | care | | | Cloth Mercerizer Operator-C | | | | | | | linical | + +--------+ +---+-----+ + + + | Note: Pt will | | check CBG's daily x1 | | Pt will take Lantis as | | prescribed | + + documented as of this encounter Visit Diagnoses Not on filedocumented in this encounter"
--- OUTSIDE RECORDS SUMMARY | ~2019-02-17 | XMS | Encounter Summary ---
Demographics + + + | Address | [address] | | | [place] [address] | + + + | Home Phone [...] Team Providers + +------+ + | Care Solar Power Installer Name | Role | Phone | [...] emphysema | | 2018 | Visit | [facility] | DO [address] | ([facility]) | | | | MEDICAL CLINIC [address] | [facility], [place] | | | | | [address] [facility], | [address] | | | | | [place] [address] | [phone] | | | | | [phone] | | | +--------+---------+ + + + [...] CATARACT REMOVAL; Surgeon: Tay Kern MD; Location: [facility] [place] [facility] [employer] MOHS [...] [place] | | | | | | [address] | | | | | | [phone] | | | | | | | | +--------+---------+ + + + | 02/26/ | Office | Urology | Lillie Fowler | | | 2018 | Visit | | [address] | | | | | | [address] | | | | | | [place] | | | | | | [address] | | | | | | [phone] | | | | | | | | +--------+---------+ + + + | 03/16/ | Office | Neurology | Theresa, | | | 2018 | Visit | | [address] | | | | | | [address] [place], | | | | | | [place] [address] | | | | | | [phone] | | | | | | | | +--------+---------+ + + + | 04/12/ | Office | Primary Care | Massimo Ramos | | | 2019 | Visit | | MD Fer [address] | | | | | | [place] | | | | | | [address] | | | | | | | | +--------+---------+ + + + | 10/03/ | Office | Neurology | Fabián Carias MD | | | 2019 | Visit | | [address] | | | | | | [place] | | | | | | [address] | | | | | | | [...] | | | care | | | Astrobiologist-C | | | | | | | [...] | | | care | | | Astrobiologist-C | | | | | | | [...] | | | care | | | Astrobiologist-C | | | | | | | [...] | | | care | | | Astrobiologist-C | | | | | | | [...]
--- OUTSIDE RECORDS SUMMARY | ~2019-02-17 | XMS | Encounter Summary ---
Demographics + + + | Address | [address] | | | [place] [address] | + + + | Home Phone [...] + +------+ + | Care Oil Well Fishing Tool Operator Name | Role | Phone | + +------+ + | Horacio Silvestre DO | PCP | | + +------+ + Encounter Details +--------+ + + + + | Date | Type | Department | Care Team | Description | +--------+ + + + + | 10/19/ | Orders Only | [facility] [facility] | Horacio Silvestre, | | | 2019 | | [facility] | DO [address] | | | | | MEDICAL CLINIC [address] | [place], [place] | | | | | [address] [place], | [address] | | | | | [place] [address] | [phone] | | | | | [phone] | | | +--------+ + + + [...] [place] | | | | | | [address] | | | | | | [phone] | | | | | | | | +--------+---------+ + + + | 02/26/ | Office | Urology | Lillie Fowler | | | 2018 | Visit | | [address] | | | | | | [address] | | | | | | [place] | | | | | | [address] | | | | | | [phone] | | | | | | | | +--------+---------+ + + + | 03/16/ | Office | Neurology | Theresa, | | | 2018 | Visit | | [address] | | | | | | [address] [place], | | | | | | [place] [address] | | | | | | [phone] | | | | | | | | +--------+---------+ + + + | 04/12/ | Office | Primary Care | Massimo Ramos | | | 2019 | Visit | | MD Fer [address] | | | | | | [place] | | | | | | [address] | | | | | | | | +--------+---------+ + + + | 10/03/ | Office | Neurology | Fabián Carias MD | | | 2019 | Visit | | [address] | | | | | | [place], [place] | | | | | | [address] | | | | | | | [...] | | | care | | | Patient Access Associate-C | | | | | | [...] | | | care | | | Patient Access Associate[facility] | | | | | | [...] | | | care | | | Patient Access Associate[facility] | | | | | | [...] | | | care | | | Patient Access Associate[facility] | | | | | | [...]
--- OUTSIDE RECORDS SUMMARY | ~2019-02-17 | XMS | Encounter Summary ---
Demographics + + + | Address | [address] | | | [place] [address] | + + + | Home Phone [...] Team Providers + +------+ + | Care Student Financial Aid Manager Name | Role | Phone | [...] unspecified back | | | | [place] [address] | | pain laterality | | | | [phone] | | (Primary Dx); Sprain | | [...] [place] | | | | | | [address] | | | | | | [phone] | | | | | | | | +--------+---------+ + + + | 02/26/ | Office | Urology | Lillie Fowler | | | 2018 | Visit | | LILLIE Lopez [address] | | | | | | [address] | | | | | | [place] | | | | | | [address] | | | | | | [phone] | | | | | | | | +--------+---------+ + + + | 03/16/ | Office | Neurology | Theresa, | | | 2018 | Visit | | SHONDA Mckinney [address] [place], | | | | | | [place] [address] | | | | | | [phone] | | | | | | | | +--------+---------+ + + + | 04/12/ | Office | Primary Care | Massimo Ramos | | | 2019 | Visit | | MD Fer [address] | | | | | | [address] [place] | | | | | | [address] | | | | | | | | +--------+---------+ + + + | 10/03/ | Office | Neurology | Fabián Carias MD | | | 2019 | Visit | | [address] | | | | | | [place] | | | | | | [address] | | | | | | | [...] | | care | | | Manager Food Safety[employer] | | | | | | | [...] | | care | | | Manager Food Safety-C | | | | | | | [...] | | care | | | Manager Food Safety-C | | | | | | | [...] | | care | | | Manager Food Safety-C | | | | | | | [...] | + +--------+ + + + | CA INJECT TRIGGER | Routin | 07/31/2018 | [...]
--- OUTSIDE RECORDS SUMMARY | ~2019-02-17 | XMS | Encounter Summary ---
Demographics + + + | Address | [address] | | | [place] [address] | + + + | Home Phone [...] Team Providers + +------+ + | Care Echocardiographer Name | Role | Phone | + [...] Results | | 2017 | | [facility] | DO [address] [place] | | | | | [facility] | [facility], [place] | | | | | [address] [place], | [address] | | | | | [place] [address] | [phone] | | | | | [phone] | | | +--------+ + + + [...] [place] | | | | | | [address] | | | | | | [phone] | | | | | | | | +--------+---------+ + + + | 02/26/ | Office | Urology | Lillie Fowler | | | 2018 | Visit | | [address] | | | | | | [address] | | | | | | [place], [place] | | | | | | [address] | | | | | | [phone] | | | | | | | | +--------+---------+ + + + | 03/16/ | Office | Neurology | Theresa, | | | 2018 | Visit | | [address] | | | | | | [address] [place], | | | | | | [place] [address] | | | | | | [phone] | | | | | | | | +--------+---------+ + + + | 04/12/ | Office | Primary Care | Massimo Ramos | | | 2019 | Visit | | MD Fer [address] | | | | | | [address] [place] | | | | | | [address] | | | | | | | | +--------+---------+ + + + | 10/03/ | Office | Neurology | Fabián Carias MD | | | 2020 | Visit | | [address] | | | | | | [place] | | | | | | [address] | | | | | | | [...] | | | care | | | Sponge Maker-C | | | | | | [...] | | | care | | | Sponge Maker-C | | | | | | [...] | | | care | | | Sponge Maker-C | | | | | | [...] | | | care | | | Sponge Maker-C | | | | | | | linical | + +--------+ +---+-----+ + + + | Note: Pt will | | check CBG's daily x1 | | Pt will take Lantis as | | prescribed | + + documented as of this encounter Visit Diagnoses Not on filedocumented in this encounter"
--- OUTSIDE RECORDS SUMMARY | ~2019-02-17 | XMS | Encounter Summary ---
Demographics + + + | Address | [address] | | | [place] [address] | + + + | Home Phone [...] Providers + +------+ + | Care Entry Level Marketing Assistant Name | Role | Phone | [...] | | [place], [place] | [place] [address] | aspiration pneumonia | | 2019 | | [address] | [phone] | type (HCC) (Primary | | | | [phone] | | Dx); Type 2 | | | | | Amado Chapin MD | diabetes mellitus | | | | | [address] [place] | with hyperglycemia, | | | | | [place] [address] | with long-term | | | | | [phone] | current use of | | | | | | insulin (HCC); | | | | | Kasey Salinas NP | Elevated lactic acid | | | | | [address] | level; Sepsis, due | | | | | [place] [address] | to unspecified | | | | | [phone] | organism (HCC) | | | | [...] nonseasonal allergic rhinitis due to pollen 03/07/2017 detention current use of aspirin 03/07/2017 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, left Current use of beta marly 06/30/2017 Panlobular emphysema 08/08/2017 Atherosclerosis of [place] coronary artery of [place] heart without angina pectoris 08/08 On potassium [...] Problems Diagnosis Date Noted Essential hypertension 03/07/2017 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 Home oxygen ordered through [facility]. Recommend PCP continue to monitor this is [...] of discharge: None Disposition: Home Follow-Up Plans: [facility] [address] [id number] Horacio Silvestre DO [address] [facility] [id number] In 1 week Hospital follow up Physical [...] Procedure Component Value Units Date/Time Culture, Blood [[id number]] Collected: 10/12/18 1320 Order Status: Completed Lab Status: Final result Updated: 10/17/18 1411 Specimen: Peripheral Blood Culture No growth after 5 days incubation. Culture, Blood [[id number]] Collected: 10/12/18 1305 Order Status: Completed Lab [...] not caused by coughing Date Last Reviewed: 04/07/201619991916-[address] [place] [address], [place] [address]. All righ ts reserved. This information is [...] of this encounter Progress Notes Scott Caballero, Shovel Handle Assembler - 10/19/2018 4:43 PM PDT PHARMACY SERVICES: [...] stomach upset -Levothyroxine: change in dose from 5f95jyn to 2.3b354iyw; may take 1k08qjv as before until new meds arrive from [...] this time. Electronically signed by: Scott Caballero, Shovel Handle Assembler 10/19/2018 16:43Electronically sig tavares by Vivek Juares, [...] signed by: Esteban Calvillo 10/18/2018 12:[address] [facility] Portions of this chart may have been created with voice recognition software. Occasional wo rd or "sound-alike" substitutions may have occurred due to the inherent limitation of voice recognition software. Read the chart carefully and recognize, using context, where these sub stitutions have occurred. Esteban Mccormick MD - 10/17/2018 3:00 PM PDT MEDICAL HOSPITALIST TEAM PROGRESS NOTE Name:Geraldo Mcfadden [facility] Day # 5 Reason for admission [...] signed by: Esteban Calvillo 10/17/2018 15:[address] [facility] Portions of this chart may have been created with voice recognition software. Occasional wo rd or "sound-alike" substitutions may have occurred due to the inherent limitation of voice recognition software. Read the chart carefully and recognize, using context, where these sub stitutions have occurred. asey Salinas NP - 10/16/2018 6:44 PM PDT MEDICAL HOSPITALIST TEAM PROGRESS NOTE Name:Geraldo Mcfadden [facility] Day # 4 Assessment and Plan: [...] have been placed for home health to [facility] patient as an outpatient when [...] Procedure Component Value Units Date/Time Culture, Blood [[id number]] Collected: 10/12/18 1320 Order Status: Completed Lab Status: Preliminary result Updated: 10/16/18 1411 Specimen: Peripheral Blood Culture No growth: Monitored continually by instrument for 5 days Culture, Blood [[id number]] Collected: 10/12/18 1305 Order Status: Completed Lab [...] IMPRESSION: Normal gastric emptying. Dictated by: Massimo Abla Electronically Signed: CHANTEL Hillman 10/16/2018 Portions of [...] Procedure Component Value Units Date/Time Culture, Blood [[id number]] Collected: 10/12/18 1320 Order Status: Completed Lab Status: Preliminary result Updated: 10/14/181410 Specimen: Peripheral Blood Culture No growth: Monitored continually by instrument for 5 days Culture, Blood [[id number]] Collected: 10/12/18 1305 Order Status: Completed Lab [...] Procedure Component Value Units Date/Time Culture, Blood [[id number]] Collected: 10/12/18 1320 Order Status: Completed Lab Status: Preliminary result Updated: 10/13/18 141 Specimen: Peripheral Blood Culture No growth: Monitored continually by instrument for 5 days Culture, Blood [[id number]] Collected: 10/12/18 1305 Order Status: Completed Lab [...] Procedure Component Value Units Date/Time Culture, Blood [[id number]] Collected: 10/12/18 1320 Order Status: Completed Lab Status: Preliminary result Updated: 10/13/18210 Specimen: Peripheral Blood Culture No growth: Monitored continually by instrument for 5 days Culture, Blood [[id number]] Collected: 10/12/18 1305 Order Status: Completed Lab [...] stitutions have occurred. Scott Mendes Pha rmacy Advanced Practice Nurse Psychotherapist - 10/13/2018 8:27 AM PDTFormatting of this [...] performed and electronically signed by Scott Caballero, Shovel Handle Assembler 10/13/2018 8:27 Associated attestation - Clarence Coulter, [...] [place] | | | | | | [address] | | | | | | [phone] | | | | | | | | +--------+---------+ + + + | 02/26/ | Office | Urology | Lillie Fowler | | | 2018 | Visit | | [address] | | | | | | [address] | | | | | | [place] | | | | | | [address] | | | | | | [phone] | | | | | | | | +--------+---------+ + + + | 03/16/ | Office | Neurology | Theresa, | | | 2018 | Visit | | [address] | | | | | | [address] [place], | | | | | | [place] [address] | | | | | | [phone] | | | | | | | | +--------+---------+ + + + | 04/12/ | Office | Primary Care | Massimo Ramos | | | 2019 | Visit | | MD Fer [address] | | | | | | [place] | | | | | | [address] | | | | | | | | +--------+---------+ + + + | 10/03/ | Office | Neurology | Fabián Carias MD | | | 2020 | Visit | | [address] | | | | | | [place] | | | | | | [address] | | | | | | | [...] | | | care | | | [place] Neck Whipper-C | | | | | | | [...] | | | care | | | [place] Neck Whipper-C | | | | | | | [...] | | | care | | | [place] Neck Whipper-C | | | | | | | [...] | | | care | | | [place] Neck Whipper-C | | | | | | | [...] + + | [facility] [facility] | [address] | [place] [address] | [phone] | | [facility]ITAL [facility] | | | [...] + + | [place] [facility] | [address] | [place] [address] | [phone] | | H[facility]PITAL [facility] | | | [...] + + | [place] [facility] | [address] | [place] [address] | [phone] | | HOSPITAL LAB[facility] | | | [...] + + | [place] [facility] | [address] | [place] [address] | [phone] | | HOSPITAL LAB[facility]ORY | | | [...] + + | [place] [facility] | [address] | [place] [address] | [phone] | | HOSPITAL [facility] | | | [...] + + | [place] [facility] | [address] | [place] [address] | [phone] | | HOSPITAL LAB[facility] | | | [...] + + | [place] [facility] | [address] | [place] [address] | [phone] | | HOSPITAL [facility] | | | [...] + + | [place] [facility] | [address] | [place] [address] | [phone] | | HOSPITAL LAB[facility]ORY | | | [...] + + | [place] [facility] | [address] | [place] [address] | [phone] | | HOSPITAL [facility] | | | [...] + + | [place] [facility] | [address] | [place] [address] | [phone] | | HOSPITAL [facility] | | | [...] + + | [place] [facility] | [address] | [place] [address] | [phone] | | HOSPITAL LAB[facility]ORY | | | [...] + + | [place] [facility] | [address] | [place] [address] | [phone] | | HOSPITAL [facility] | | | [...] + + | [place] [facility] | [address] | [place] [address] | [phone] | | HOSPITAL [facility] | | | [...] + + | [place] [facility] | [address] | [place] [address] | [phone] | | HOSPITAL [facility] | | | [...] + + | [place] [facility] | [address] | [place] [address] | [phone] | | HOSPITAL [facility] | | | [...] + + | [place] [facility] | [address] | [place] [address] | [phone] | | HOSPITAL [facility] | | | [...] + + | [place] [facility] | [address] | [place] [address] | [phone] | | HOSPITAL [facility] | | | [...] + + | [place] [facility] | [address] | [place] [address] | [phone] | | HOSPITAL [facility] | | | [...] + + | [place] [facility] | [address] | [place] [address] | [phone] | | H[facility]ITAL [facility] | | | [...] + + | [place] [facility] | [address] | [place] [address] | [phone] | | HOSPITAL [facility] | | | [...] + + | [place] [facility] | [address] | [place] [address] | [phone] | | HOSPITAL [facility] | | | [...] + + | [place] [facility] | [address] | [place] [address] | [phone] | | HOS[facility]ITAL [facility] | | | [...] + + | [place] [facility] | [address] | [place] [address] | [phone] | | H[facility]PITAL [facility] | | | [...] + + | [place] [facility] | [address] | [place] [address] | [phone] | | H[facility]ITAL [facility] | | | [...] + + | [place] [facility] | [address] | [place] [address] | [phone] | | H[facility]ITAL [facility] | | | [...] + + | [place] [facility] | [address] | [place] [address] | [phone] | | [facility]ITAL [facility] | | | [...] + + | [place] [facility] | [address] | [place] [address] | [phone] | | HOSPITAL [facility] | | | [...] + + | [place] [facility] | [address] | [place] [address] | [phone] | | [facility]ITAL [facility] | | | [...] | mL/min/1.73m2 | [facility] | | | [facility] | | [facility] | | | [...] + + | [place] [facility] | [address] | [place] [address] | [phone] | | [facility]ITAL [facility] | | | [...] + + | [place] [facility] | [address] | [place] [address] | [phone] | | H[facility]ITAL [facility] | | | [...] + + | [place] [facility] | [address] | [place] [address] | [phone] | | [facility]ITAL [facility] | | | [...] + + | [place] [facility] | [address] | [place] [address] | [phone] | | H[facility]ITAL [facility] | | | [...] + + | [place] [facility] | [address] | [place] [address] | [phone] | | HOSPITAL [facility] | | | [...] + + | [place] [facility] | [address] | [place] [address] | [phone] | | H[facility]ITAL [facility] | | | [...] + + | [place] [facility] | [address] | [place] [address] | [phone] | | [facility]ITAL [facility] | | | [...] + + | [place] [facility] | [address] | [place] [address] | [phone] | | [facility]ITAL [facility] | | | [...] + + | [place] [facility] | [address] | [place] [address] | [phone] | | [facility] | | | [...] | mL/min/1.73m2 | [facility] | | | [facility] | | [facility] | | | [...] + + | [place] [facility] | [address] | [place] [address] | [phone] | | [facility]ITAL [facility] | | | [...] + + | [place] [facility] | [address] | [place] [address] | [phone] | | [facility]ITAL [facility] | | | [...] + + | [place] | [address] | [place] [address] | [phone] | | [facility]ITAL [facility] | | | [...] + + | [facility] | [address] | [place] [address] | [phone] | | H[facility]ITAL [facility] | | | [...] + + | [place] [facility] | [address] | [place] [address] | [phone] | | H[facility]ITAL [facility] | | | [...] + + | [place] | [address] | [place] [address] | [phone] | | H[facility]ITAL [facility] | | | [...] + + | [facility] | [address] | [place] [address] | [phone] | | HOSPITAL [facility] | | | [...] + + | [facility] | [address] | [place] [address] | [phone] | | [facility]ITAL [facility] | | | [...] + + | [place] | [address] | [place] [address] | [phone] | | [facility]ITAL [facility] | | | [...] + + | [place] [facility] | [address] | [place] [address] | [phone] | | [facility] | | | [...] + + | [place] [facility] | [address] | [place] [address] | [phone] | | [facility]ITAL [facility] | | | [...] + + | [place] [facility] | [address] | [place] [address] | [phone] | | [facility]PITAL [facility] | | | [...] | mL/min/1.73m2 | [facility] | [facility] | | [facility] | | | [...] + + | [place] [facility] | [address] | [place] [address] | [phone] | | [facility]PITAL [facility] | | | [...] + + | [facility] | [address] | [place] [address] | [phone] | | HOSPITAL [facility] | | | [...] + + | [place] [facility] | [address] | [place] [address] | [phone] | | HOSPITAL [facility] | | | [...] + + | [place] [facility] | [address] | [place] [address] | [phone] | | [facility]ITAL [facility] | | | [...] - 1.030 | [place] | | | Stephen | | | [facility] | | | [...] + + | [place] [facility] | [address] | [place] [address] | [phone] | | [facility]ITAL [facility] | | | [...] msQT Interval: 372 msQTC Interval: 437 msP [place]: | TRACEMASTER | | 15 degQRS [place]: -25 degT Wave [place]: 17 degP-R Interval: 184 msec- | | [...] + + | [place] [facility] | [address] | [place] [address] | [phone] | | HOSPITAL [facility] | | | [...] + + | [place] [facility] | [address] | [place] [address] | [phone] | | HOSPITAL [facility] | | | [...] + + | [place] | [address] | [place] [address] | [phone] | | HOSPITAL [facility] | | | [...] + + | [facility] | [address] | [place] [address] | [phone] | | HOS[facility]ITAL [facility] | | | [...] | cutoff point for the diagnosis of [place] is 0.8 ng/mL for the Troponin I | | | method. | | + + + + + + + + | Performing | Address | City/State/Zipcode | Phone Number | | Organization | | | | + + + + + | [facility] | [address] | [place] [address] | [phone] | | [facility] | | | [...] | mL/min/1.73m2 | [facility] | | | [facility] | RATE,ESTIMATED | | [facility]OSP[facility] | | | | mL/min/1.54f7Pogk than | | LABORATORY | | | [...] + + | [facility] | [address] | [place] [address] | [phone] | | [facility]ITAL [facility] | | | [...] + + | [facility] | [address] | [place] [address] | [phone] | | [facility]OS[facility]ITAL [facility] | | | [...] + + | [facility] | [address] | [place] [address] | [phone] | | HOSPITAL [facility] | | | [...] | | | | | Minutes, ONCE, [facility] 10/13/18 at | | | | [...] | | | | | Minutes, ONCE, [facility] 10/14/18 at | | | | | [...] | | | | | Minutes, ONCE, [facility] 10/15/18 at | | | | [...] | | | | | | | 6333-4464 Use NIGHT DOSE for | | | | | | | doses scheduled: HS, 3AM, | | | | | | | Nighttime 0104-7891 If the BG is | | | [...] PDT | | | | | ONCE, [facility] 10/13/18 at 1345, For 1 | [...]
--- OUTSIDE RECORDS SUMMARY | ~2019-02-17 | XMS | Encounter Summary ---
Demographics + + + | Address | [address] | | | [place] [address] | + + + | Home Phone | | + + + | Preferred Language | Unknown | + + + | Marital Status | | + + + | Hoahaoism Affiliation | 1025 | + + + | Race | Unknown | + + + | Ethnic Group | Unknown | + + + Author + + + | Author | [facility] | | | and [place] | + + + | Organization | [facility] | | | and [...] Team Providers + +------+ + | Care Neuropsychologist Name | Role | Phone | + [...] | Diagnoses | [place] | [facility] | | | | | | [place] | [facility] | | | | | Office/outpa | MEDICAL | Primary Care | | | | | tient visit | [place] [address] | [address] | | | | | est | [place] | [place] | | | | | [address], | [address] | [address] | | | | | Authorized | [address] [place] | Phone: | | | | | For any | [place] | [phone] | | | | | clinically | [address] | Fax: | | | | | necessary | Phone: | [phone] | | | | | Visits for | [phone] | | | | | | 365 days | Fax: | | | | | | AUTH NO: | [phone] | | | | | | [phone] | | | +--------+--------+ + + + + Encounter Details +--------+---------+ + + + | Date | Type | Department | Care Team | Description | +--------+---------+ + + + | 06/09/ | Office | [place] [facility] | Horacio Silvestre, | Acute renal failure, | | 2019 | Visit | [facility] | [facility] [address] | unspecified acute | | | | MEDICAL CL[facility] | [facility], [place] | renal failure type | | | | [facility], | [address] | ([facility]) (Primary Dx); | | | | [place] [address] | [phone] | Bilateral impacted | | | | [phone] | | cerumen; Acute | | | [...] to f/u on acute renal insufficiency from [facility] hospitalization 05/26/18. He i s doing [...] [place] | | | | | | [address] | | | | | | [phone] | | | | | | | | +--------+---------+ + + + | 02/26/ | Office | Urology | Lillie Fowler | | | 2018 | Visit | | LILLIE Lopez [address] | | | | | | [address] | | | | | | [place], [place] | | | | | | [address] | | | | | | [phone] | | | | | | | | +--------+---------+ + + + | 03/16/ | Office | Neurology | Theresa, | | | 2019 | Visit | | [address] | | | | | [address] [place], | | | | | | [place] [address] | | | | | | [phone] | | | | | | | | +--------+---------+ + + + | 04/12/ | Office | Primary Care | Massimo Ramos | | | 2019 | Visit | | MD Fer [address] | | | | | | [place] | | | | | | [address] | | | | | | | | +--------+---------+ + + + | 10/03/ | Office | Neurology | Fabián Carias MD | | | 2019 | Visit | | [address] | | | | | | [place] | | | | | | [address] | | | | | | | [...] | | | care | | | Drug Regulatory Affairs Specialist-C | | | | | | [...] | | | care | | | Drug Regulatory Affairs Specialist-C | | | | | | [...] | | | care | | | Drug Regulatory Affairs Specialist-C | | | | | | [...] | | | care | | | Drug Regulatory Affairs Specialist-C | | | | | | [...]
--- OUTSIDE RECORDS SUMMARY | ~2019-02-17 | XMS | Encounter Summary ---
Demographics + + + | Address | [address] | | | [place] [address] | + + + | Home Phone [...] Team Providers + +------+ + | Care Transition Mgr Rn Name | Role | Phone | + [...] [address] | | | | | [place] [address] | | | | | | [phone] | | | +--------+ + + + [...] [place] | | | | | | [address] | | | | | | [phone] | | | | | | | | +--------+---------+ + + + | 02/26/ | Office | Urology | Lillie Fowler | | | 2018 | Visit | | LILLIE Lopez [address] | | | | | | [address] | | | | | | [place], [place] | | | | | | [address] | | | | | | [phone] | | | | | | | | +--------+---------+ + + + | 03/16/ | Office | Neurology | Theresa, | | | 2018 | Visit | | [address] | | | [address] [place], | | | | | | [place] [address] | | | | | | [phone] | | | | | | | | +--------+---------+ + + + | 04/12/ | Office | Primary Care | Massimo Ramos Pedro Luis | | | 2019 | Visit | | MD Fer [address] | | | | | | [place] | | | | | | [address] | | | | | | | | +--------+---------+ + + + | 10/03/ | Office | Neurology | Fabián Carias MD | | | 2019 | Visit | | [address] | | | | | | [place] | | | | | | [address] | | | | | | | [...] | | | care | | | Cat Sitter-C | | | | | | | [...] | | | care | | | Cat Sitter-C | | | | | | | [...] | | | care | | | Cat Sitter-C | | | | | | | [...] | | | care | | | Cat Sitter-C | | | | | | | [...]
--- OUTSIDE RECORDS SUMMARY | ~2019-02-17 | XMS | Encounter Summary ---
Demographics + + + | Address | [address] | | | [place] [address] | + + + | Home Phone [...] Team Providers + +------+ + | Care Setup Operator Name | Role | Phone | [...] | | | CENTER [address] | [facility] | | | | | DR [place], [place] | [place] [address] | | | | | [address] | [phone] | | | | | [phone] | | | +--------+ + + + [...] [place] | | | | | | [address] | | | | | | [phone] | | | | | | | | +--------+---------+ + + + | 02/26/ | Office | Urology | Lillie Fowler | | | 2018 | Visit | | LILLIE Lopez [address] | | | | | | [address] | | | | | | [place], [place] | | | | | | [address] | | | | | | [phone] | | | | | | | | +--------+---------+ + + + | 03/16/ | Office | Neurology | Theresa, | | | 2018 | Visit | | [address] | | | | [address] [place], | | | | | | [place] [address] | | | | | | [phone] | | | | | | | | +--------+---------+ + + + | 04/12/ | Office | Primary Care | Massimo Ramos Pedro Luis | | | 2019 | Visit | | MD Fer [address] | | | | | | [place] | | | | | | [address] | | | | | | | | +--------+---------+ + + + | 10/03/ | Office | Neurology | Fabián Carias MD | | | 2019 | Visit | | [address] | | | | | | [place] | | | | | | [address] | | | | | | | [...] | | | care | | | [facility] | | | | | | | [...] | | | care | | | [facility] | | | | | | | [...] | | | care | | | [facility] | | | | | | | [...] | | | care | | | [facility] | | | | | | | linical | + +--------+ +---+-----+ + + + | Note: Pt will | | check CBG's daily x1 | | Pt will take [place] as | | prescribed | + + documented as of this encounter Visit Diagnoses Not on filedocumented in this encounter"
--- OUTSIDE RECORDS SUMMARY | ~2019-02-17 | XMS | Encounter Summary ---
Demographics + + + | Address | [address] | | | [place] [address] | + + + | Home Phone [...] Team Providers + +------+ + | Care Manifest/Order Organizer Print Orders Name | Role | Phone | + [...] Description | +--------+--------+ + + + | 09/25/ | Refill | [facility] | Horacio iSlvestre, | Medication Refill; | | 2018 | | [facility] | [address] | Medication Refill | | | | [facility] [address] | [facility], [place] | | | | | [address] [place], | [address] | | | | | [place] [address] | [phone] | | | | | [phone] | | | +--------+--------+ + + + [...] [place] | | | | | | [address] | | | | | | [phone] | | | | | | | | +--------+---------+ + + + | 02/26/ | Office | Urology | Lillie Fowler | | | 2018 | Visit | | [address]IE [address] | | | | | | [address] | | | | | | [place], [place] | | | | | | [address] | | | | | | [phone] | | | | | | | | +--------+---------+ + + + | 03/16/ | Office | Neurology | Theresa, | | | 2018 | Visit | | [address] | | | | | | [address] [place], | | | | | | [place] [address] | | | | | | [phone] | | | | | | | | +--------+---------+ + + + | 04/12/ | Office | Primary Care | Massimo Ramos | | | 2019 | Visit | | MD Fer [address] | | | | | | [address] [place] | | | | | | [address] | | | | | | | | +--------+---------+ + + + | 10/03/ | Office | Neurology | Fabián Carias MD | | | 2019 | Visit | | [address] | | | | | | [place] | | | | | | [address] | | | | | | | [...] | | | care | | | Lehr Stripper-C | | | | | | [...] | | | care | | | Lehr Stripper-C | | | | | | [...] | | | care | | | Lehr Stripper-C | | | | | | [...] | | | care | | | Lehr Stripper-C | | | | | | [...] lower urinary tract symptoms | + + documented in this encounter Additional Health Concerns + + + + | Infection | Noted Time | Resolved Time | + + + + | Methicillin-resistant Staphylococcus aureus | 07/20/2018 4:00 PM | | | | PDT | | + + + + documented as of this encounter"
--- OUTSIDE RECORDS SUMMARY | ~2019-02-17 | XMS | Encounter Summary ---
Demographics + + + | Address | [address] | | | [place] [address] | + + + | Home Phone [...] Team Providers + +------+ + | Care Cutting Room Supervisor Name | Role | Phone [...] [address] | | | | | [place] [address] | | | | | | [phone] | | | +--------+ + + + [...] [place] | | | | | | [address] | | | | | | [phone] | | | | | | | | +--------+---------+ + + + | 02/26/ | Office | Urology | Lillie Fowler | | | 2018 | Visit | | [address] | | | | | | [address] | | | | | | [place], [place] | | | | | | [address] | | | | | | [phone] | | | | | | | | +--------+---------+ + + + | 03/16/ | Office | Neurology | Theresa, | | | 2018 | Visit | | [address] | | | | | | [address] [place], | | | | | | [place] [address] | | | | | | [phone] | | | | | | | | +--------+---------+ + + + | 04/12/ | Office | Primary Care | Massimo Ramos | | | 2019 | Visit | | MD Fer [address] | | | | | | [place] | | | | | | [address] | | | | | | | | +--------+---------+ + + + | 10/03/ | Office | Neurology | Fabián Carias MD | | | 2019 | Visit | | [address] | | | | | | [place] | | | | | | [address] | | | | | | | [...] | | | care | | | Booth Cashier-C | | | | | | [...] | | | care | | | Booth Cashier-C | | | | | | [...] | | | care | | | Booth Cashier-C | | | | | | [...] | | | care | | | Booth Cashier-C | | | | | | | linical | + +--------+ +---+-----+ + + + | Note: Pt will | | check CBG's daily x1 | | Pt will take Lantis as | | prescribed | + + documented as of this encounter Visit Diagnoses Not on filedocumented in this encounter"
--- OUTSIDE RECORDS SUMMARY | ~2019-02-17 | XMS | Encounter Summary ---
Demographics + + + | Address | [address] | | | [place] [address] | + + + | Home Phone [...] Providers + +------+ + | Care Welder Assistant Name | Role | Phone | [...] Medication Refill | | 2019 | | [facility] | DO [address] | | | | | MEDICAL CLIN[facility] | [facility], [place] | | | | | [address] [place], | [address] | | | | | [place] [address] | [phone] | | | | | [phone] | | | +--------+ + + + [...] [place] | | | | | | [address] | | | | | | [phone] | | | | | | | | +--------+---------+ + + + | 02/26/ | Office | Urology | Lillie Fowler | | | 2018 | Visit | | [address] | | | | | | [address] | | | | | | [place], [place] | | | | | | [address] | | | | | | [phone] | | | | | | | | +--------+---------+ + + + | 03/16/ | Office | Neurology | Theresa, | | | 2018 | Visit | | [address] | | | | | | [address] [place], | | | | | | [place] [address] | | | | | | [phone] | | | | | | | | +--------+---------+ + + + | 04/12/ | Office | Primary Care | Massimo Ramos Pedro Luis | | | 2019 | Visit | | MD Fer [address] | | | | | | [place] | | | | | | [address] | | | | | | | | +--------+---------+ + + + | 10/03/ | Office | Neurology | Fabián Carias MD | | | 2019 | Visit | | [address] | | | | | | [place] | | | | | | [address] | | | | | | | [...] | | | care | | | Billing Administrator-C | | | | | | [...] | | | care | | | Billing Administrator-C | | | | | | [...] | | | care | | | Billing Administrator-C | | | | | | [...] | | | care | | | Billing Administrator-C | | | | | | [...]
--- OUTSIDE RECORDS SUMMARY | ~2019-02-17 | XMS | Encounter Summary ---
Demographics + + + | Address | [address] | | | [place] [address] | + + + | Home Phone [...] Team Providers + +------+ + | Care Package Worker Name | Role | Phone | [...] | | | | [place] | [place] [address] | | | | | [address] | [phone] | | | | | [phone] | | | +--------+ + + + [...] [place] | | | | | | [address] | | | | | | [phone] | | | | | | | | +--------+---------+ + + + | 02/26/ | Office | Urology | Lillie Fowler | | | 2018 | Visit | | [address] | | | | | | [address] | | | | | | [place], [place] | | | | | | [address] | | | | | | [phone] | | | | | | | | +--------+---------+ + + + | 03/16/ | Office | Neurology | Theresa, | | | 2018 | Visit | | [address] | | | | | | [address] [place], | | | | | | [place] [address] | | | | | | [phone] | | | | | | | | +--------+---------+ + + + | 04/12/ | Office | Primary Care | Massimo Ramos Pedro Luis | | | 2019 | Visit | | MD Fer [address] | | | | | | [place] | | | | | | [address] | | | | | | | | +--------+---------+ + + + | 10/03/ | Office | Neurology | Fabián Carias MD | | | 2019 | Visit | | [address] | | | | | | [place] | | | | | | [address] | | | | | | | [...] | | care | | | Assistant Attorney General-C | | | | | | | [...] | | care | | | Assistant Attorney General-C | | | | | | | [...] | | care | | | Assistant Attorney General-C | | | | | | | [...] | | care | | | Assistant Attorney General-C | | | | | | | [...] + + | [facility] | [address] | [place] [address] | [phone] | | H[facility] | | | [...]
--- OUTSIDE RECORDS SUMMARY | ~2019-02-17 | XMS | Encounter Summary ---
Demographics + + + | Address | [address] | | | [place] [address] | + + + | Home Phone [...] Team Providers + +------+ + | Care Preventative Maintenance Technician Name | Role | Phone | [...] Description | +--------+--------+ + + + | 09/22/ | Refill | [place] [facility] | Horacio Silvestre, | Medication Refill | | 2019 | | [facility] | [address] | | | | | MEDICAL CLINIC [address] | [facility], [place] | | | | | [address] [place], | [address] | | | | | [place] [address] | [phone] | | | | | [phone] | | | +--------+--------+ + + + [...] [place] | | | | | | [address] | | | | | | [phone] | | | | | | | | +--------+---------+ + + + | 02/26/ | Office | Urology | Lillie Fowler | | | 2018 | Visit | | [address] | | | | | | [address] | | | | | | [place], [place] | | | | | | [address] | | | | | | [phone] | | | | | | | | +--------+---------+ + + + | 03/16/ | Office | Neurology | Theresa, | | | 2018 | Visit | | [address] | | | | | | [address] [place], | | | | | | [place] [address] | | | | | | [phone] | | | | | | | | +--------+---------+ + + + | 04/12/ | Office | Primary Care | Massimo Ramos | | | 2019 | Visit | | MD Fer [address] | | | | | | [place] | | | | | | [address] | | | | | | | | +--------+---------+ + + + | 10/03/ | Office | Neurology | Fabián Carias MD | | | 2019 | Visit | | [address] | | | | | | [place] | | | | | | [address] | | | | | | | [...] | | | care | | | Warehouse Forklift Operator-C | | | | | | [...] | | | care | | | Warehouse Forklift Operator-C | | | | | | [...] | | | care | | | Warehouse Forklift Operator-C | | | | | | [...] | | | care | | | Warehouse Forklift Operator-C | | | | | | [...]
--- OUTSIDE RECORDS SUMMARY | ~2019-02-17 | XMS | Encounter Summary ---
Demographics + + + | Address | [address] | | | [place] [address] | + + + | Home Phone [...] Team Providers + +------+ + | Care Imaging Nurse Name | Role | Phone | [...] | | | [facility]ICAL [facility] | Product Promoter Retail Pet-Clinical | | | | | [address]TH [facility], | | | | | | [place] [address] | | | | | | [phone] | | | +--------+ + + + [...] [place] | | | | | | [address] | | | | | | [phone] | | | | | | | | +--------+---------+ + + + | 02/26/ | Office | Urology | Lillie Fowler | | | 2018 | Visit | | [address] | | | | | | [address] | | | | | | [place], [place] | | | | | | [address] | | | | | | [phone] | | | | | | | | +--------+---------+ + + + | 03/16/ | Office | Neurology | Theresa, | | | 2018 | Visit | | [address] | | | | | | [address] [place], | | | | | | [place] [address] | | | | | | [phone] | | | | | | | | +--------+---------+ + + + | 04/12/ | Office | Primary Care | Massimo Ramos Pedro Luis | | | 2019 | Visit | | MD Fer [address] | | | | | | [place] | | | | | | [address] | | | | | | | | +--------+---------+ + + + | 10/03/ | Office | Neurology | Fabián Carias MD | | | 2019 | Visit | | [address] | | | | | | [place] | | | | | | [address] | | | | | | | [...] | | care | | | Product Promoter Retail Pet-C | | | | | | | [...] | | care | | | Product Promoter Retail Pet-C | | | | | | | [...] | | care | | | Product Promoter Retail Pet-C | | | | | | | [...] | | care | | | Product Promoter Retail Pet-C | | | | | | | [...]
--- OUTSIDE RECORDS SUMMARY | ~2019-02-17 | XMS | Encounter Summary ---
Demographics + + + | Address | [address] | | | [place] [address] | + + + | Home Phone [...] Team Providers + +------+ + | Care Ski Patrol Officer Name | Role | Phone | [...] | [address] | [place] [address] | | | | | [place] | [phone] | | | | | [address] | | | | | | [phone] | | | +--------+ + + + [...] | | | | | | | ([facility]LY [facility]), Multilevel | | | | | [...] [place] | | | | | | [address] | | | | | | [phone] | | | | | | | | +--------+---------+ + + + | 02/26/ | Office | Urology | Lillie Fowler | | | 2018 | Visit | | [address] | | | | | | [address] | | | | | | [place], [place] | | | | | | [address] | | | | | | [phone] | | | | | | | | +--------+---------+ + + + | 03/16/ | Office | Neurology | Theresa, | | | 2018 | Visit | | [address] | | | | | | [address] [place], | | | | | | [place] [address] | | | | | | [phone] | | | | | | | | +--------+---------+ + + + | 04/12/ | Office | Primary Care | Massimo Ramos | | | 2019 | Visit | | MD Fer [address] | | | | | | [place] | | | | | | [address] | | | | | | | | +--------+---------+ + + + | 10/03/ | Office | Neurology | Fabián Carias MD | | | 2020 | Visit | | [address] | | | | | | [place] | | | | | | [address] | | | | | | | [...] | | | care | | | Telesales Professional-C | | | | | | | [...] | | | care | | | Telesales Professional-C | | | | | | | [...] | | | care | | | Telesales Professional-C | | | | | | | [...] | | | care | | | Telesales Professional-C | | | | | | | [...]
--- OUTSIDE RECORDS SUMMARY | ~2019-02-17 | XMS | Encounter Summary ---
Demographics + + + | Address | [address] | | | [place] [address] | + + + | Home Phone [...] Team Providers + +------+ + | Care Box Packer Name | Role | Phone | [...] | | | | | toenail | [address] | [address] | | | | | Procedures | Phone: | Phone: | | | | | FOOT ISSUES | [phone] | [phone] | | | | | | Fax: | Fax: | | | | | | [phone] | [phone] | +--------+ + + + + + [...] pneumonia | | 2018 | Visit | [facility] | DNP [address] | (Primary Dx); | | | | MEDICAL CLINIC [address] | [place] [address] | Fissure in skin of | | | | [address] [place], | [phone] | foot; Fungal | | | | [place] [address] | | infection of | | | | [phone] | | toenail; Weakness of | | [...] Patient discouraged from using his own industrial snag grinder to perform foot care as he [...] His states that he takes an industrial snag grinder to his heels from time t [...] [place] | | | | | | [address] | | | | | | [phone] | | | | | | | | +--------+---------+ + + + | 02/26/ | Office | Urology | Lillie Fowler | | | 2018 | Visit | | [address] | | | | | | [address] | | | | | | [place], [place] | | | | | | [address] | | | | | | [phone] | | | | | | | | +--------+---------+ + + + | 03/16/ | Office | Neurology | Theresa, | | | 2018 | Visit | | [address] | | | | | | [address] [place], | | | | | | [place] [address] | | | | | | [phone] | | | | | | | | +--------+---------+ + + + | 04/12/ | Office | Primary Care | Massimo Ramos | | | 2019 | Visit | | MD Fer [address] | | | | | | [place] | | | | | | [id number] | | | | | | | | +--------+---------+ + + + | 10/03/ | Office | Neurology | Fabián Carias MD | | | 2019 | Visit | | [address] | | | | | | [place] | | | | | | [address] | | | | | | | [...] | | care | | | Credit Director-C | | | | | | [...] | | care | | | Credit Director-C | | | | | | [...] | | care | | | Credit Director-C | | | | | | [...] | | care | | | Credit Director-C | | | | | | [...]
--- OUTSIDE RECORDS SUMMARY | ~2019-02-17 | XMS | Encounter Summary ---
Demographics + + + | Address | [address] | | | [place] [address] | + + + | Home Phone [...] Team Providers + +------+ + | Care Assistant Auditor Name | Role | Phone | [...] | Diagnoses | [place] | [facility] | | | | | | [facility] | [facility] | | | | | Office/outpa | MEDICAL | Primary Care | | | | | tient visit | [address] | [address] [facility] | | | | | est | [address] | [place] | | | | | [address], | [address] | [address] | | | | | Authorized | [address] [place] | Phone: | | | | | For any | [place], [place] | [phone] | | | | | clinically | [address] | Fax: | | | | | necessary | Phone: | [phone] | | | | | Visits for | [phone] | | | | | | 365 days | Fax: | | | | | | AUTH NO: | [phone] | | | | | | [phone] | | | +--------+--------+ + + + + Encounter Details +--------+---------+ + + + | Date | Type | Department | Care Team | Description | +--------+---------+ + + + | 09/24/ | Office | [facility] [facility] | Faraz Tejada, | Chronic diastolic | | 2019 | Visit | [facility] | DNP [address] | heart failure (HCC) | | | | MEDICAL CLINIC [address] | [place] [address] | (Primary Dx); Cough; | | | | [address] [place], | [phone] | Bilateral lower | | | | [place] [address] | | extremity edema; | | | | [phone] | | Bilateral hearing | | | [...] [place] | | | | | | [address] | | | | | | [phone] | | | | | | | | +--------+---------+ + + + | 02/26/ | Office | Urology | Lillie Fowler | | | 2018 | Visit | | [address] | | | | | | [address] | | | | | | [place] | | | | | | [address] | | | | | | [phone] | | | | | | | | +--------+---------+ + + + | 03/16/ | Office | Neurology | Theresa, | | | 2018 | Visit | | [address] | | | | | | [address] [place], | | | | | | [place] [address] | | | | | | [phone] | | | | | | | [...] [place] | | | | | | [address] | | | | | | | [...] | | | care | | | Circular Sawyer Stone-C | | | | | | | [...] | | | care | | | Circular Sawyer Stone-C | | | | | | | [...] | | | care | | | Circular Sawyer Stone-C | | | | | | | [...] | | | care | | | Circular Sawyer Stone-C | | | | | | | [...] | [address] | [place] [address] | [phone] | | [facility] | | | [...] | [address] | [place] [address] | [phone] | | [facility] | | | [...] + + | [place] [facility] | [address] [facility] | [place] [address] | [phone] | | [facility] | | | | | [facility] | | | | + [...]
--- OUTSIDE RECORDS SUMMARY | ~2019-02-17 | XMS | Encounter Summary ---
Demographics + + + | Address | [address] | | | [place] [address] | + + + | Home Phone [...] Team Providers + +------+ + | Care Cfo Controller Name | Role | Phone | [...] | | [address] [place], | [address] | | | | | [place] [address] | [phone] | | | | | [phone] | | | +--------+ + + + [...] [place] | | | | | | [address] | | | | | | [phone] | | | | | | | | +--------+---------+ + + + | 02/26/ | Office | Urology | Lillie Fowler | | | 2018 | Visit | | [address] | | | | | | [address] | | | | | | [place], [place] | | | | | | [address] | | | | | | [phone] | | | | | | | | +--------+---------+ + + + | 03/16/ | Office | Neurology | Theresa, | | | 2018 | Visit | | [address] | | | | | | [address] [place], | | | | | | [place] [address] | | | | | | [phone] | | | | | | | | +--------+---------+ + + + | 04/12/ | Office | Primary Care | Massimo Ramos | | | 2019 | Visit | | MD Fer [address] | | | | | | [address] [place], [place] | | | | | | [address] | | | | | | | | +--------+---------+ + + + | 10/03/ | Office | Neurology | Fabián Carias MD | | | 2019 | Visit | | [address] | | | | | | [place] | | | | | | [address] | | | | | | | [...] | | | care | | | Display Mechanic-C | | | | | | [...] | | | care | | | Display Mechanic-C | | | | | | [...] | | | care | | | Display Mechanic-C | | | | | | [...] | | | care | | | Display Mechanic-C | | | | | | | linical | + +--------+ +---+-----+ + + + | Note: Pt will | | check CBG's daily x1 | | Pt will take Lantis as | | prescribed | + + documented as of this encounter Visit Diagnoses Not on filedocumented in this encounter"
--- OUTSIDE RECORDS SUMMARY | ~2019-02-17 | XMS | Encounter Summary ---
Demographics + + + | Address | [address] | | | [place] [address] | + + + | Home Phone [...] Team Providers + +------+ + | Care Wafer Production Lead Worker Name | Role | Phone | + +------+ + | Ryan Gutiérrez MD | PCP | | + +------+ + Encounter Details +--------+ + + + + | Date | Type | Department | Care Team | Description | +--------+ + + + + | 09/12/ | Hospital | [place] [facility] | Scott De Oliveira | | | 2016 | Encounter | [facility] | DO [address] | | | | | [address]STOMY [address] | [address] | | | | | [address] [place], | [facility], [place] | | | | | [place] [address] | [address] | | | | | [phone] | [phone] | | | | | | | [...] [place] | | | | | | [address] | | | | | | [phone] | | | | | | | | +--------+---------+ + + + | 02/26/ | Office | Urology | Lillie Fowler | | | 2018 | Visit | | [address] | | | | | | [address] | | | | | | [place] | | | | | | [address] | | | | | | [phone] | | | | | | | | +--------+---------+ + + + | 03/16/ | Office | Neurology | Theresa, | | | 2018 | Visit | | [address] | | | | | | [address] [place], | | | | | | [place] [address] | | | | | | [phone] | | | | | | | | +--------+---------+ + + + | 04/12/ | Office | Primary Care | Massimo Ramos | | | 2019 | Visit | | MD Fer [address] | | | | | | [place] | | | | | | [address] | | | | | | | | +--------+---------+ + + + | 10/03/ | Office | Neurology | Fabián Carias MD | | | 2019 | Visit | | [address] | | | | | | [place] | | | | | | [address] | | | | | | | [...] | | | care | | | Education Nurse-C | | | | | | [...] | | | care | | | Education Nurse-C | | | | | | [...] | | | care | | | Education Nurse-C | | | | | | [...] | | | care | | | Education Nurse-C | | | | | | | linical | + +--------+ +---+-----+ + + + | Note: Pt will | | check CBG's daily x1 | | Pt will take Lantis as | | prescribed | + + documented as of this encounter Visit Diagnoses Not on filedocumented in this encounter"
--- OUTSIDE RECORDS SUMMARY | ~2019-02-17 | XMS | Encounter Summary ---
Demographics + + + | Address | [address] | | | [place] [address] | + + + | Home Phone [...] Team Providers + +------+ + | Care Hydrometallurgical Engineer Name | Role | Phone | [...] | | | MEDICAL [facility] [address] | Aircraft Parts Assembler-Clinical | | | | | [facility] [facility] [place], | | | | | | [place] [address] | | | | | | [phone] | | | +--------+ + + + [...] [place] | | | | | | [address] | | | | | | [phone] | | | | | | | | +--------+---------+ + + + | 02/26/ | Office | Urology | Lillie Fowler | | | 2018 | Visit | | [address] | | | | | | [address] | | | | | | [place], [place] | | | | | | [address] | | | | | | [phone] | | | | | | | | +--------+---------+ + + + | 03/16/ | Office | Neurology | Thereas, | | | 2018 | Visit | | [address] | | | | | | [address] [place], | | | | | | [place] [address] | | | | | | [phone] | | | | | | | | +--------+---------+ + + + | 04/12/ | Office | Primary Care | Massimo Ramos | | | 2019 | Visit | | MD [address] | | | | | | [place] | | | | | | [address] | | | | | | | | +--------+---------+ + + + | 10/03/ | Office | Neurology | Fabián Carias MD | | | 2019 | Visit | | [address] | | | | | | [place] | | | | | | [address] | | | | | | | [...] | | | care | | | Aircraft Parts Assembler-C | | | | | | [...] | | | care | | | Aircraft Parts Assembler-C | | | | | | [...] | | | care | | | Aircraft Parts Assembler-C | | | | | | [...] | | | care | | | Aircraft Parts Assembler-C | | | | | | [...]
--- OUTSIDE RECORDS SUMMARY | ~2019-02-17 | XMS | Encounter Summary ---
Demographics + + + | Address | [address] | | | [place] [address] | + + + | Home Phone [...] Team Providers + +------+ + | Care Wellness Coordinator Name | Role | Phone | [...] | | | | MANAGEMENT [address] | Plastic Die Maker Apprentice-Clinical | | | | | [address] [address] | | | | | | [place] | | | | | | [address] | | | | | | [phone] | | | +--------+ + + + [...] [place] | | | | | | [address] | | | | | | [phone] | | | | | | | | +--------+---------+ + + + | 02/26/ | Office | Urology | Lillie Fowler | | | 2018 | Visit | | [address] | | | | | | [address] | | | | | | [place] | | | | | | [address] | | | | | | [phone] | | | | | | | | +--------+---------+ + + + | 03/16/ | Office | Neurology | Theresa, | | | 2018 | Visit | | [address] | | | | | | [address] [place], | | | | | | [place] [address] | | | | | | [phone] | | | | | | | | +--------+---------+ + + + | 04/12/ | Office | Primary Care | Massimo Ramos | | | 2019 | Visit | | [address] | | | | | | [place] | | | | | | [address] | | | | | | | | +--------+---------+ + + + | 10/03/ | Office | Neurology | Fabián Carias MD | | | 2019 | Visit | | [address] | | | | | | [place] | | | | | | [phone] | | | | | | | [...] | | | care | | | Plastic Die Maker Apprentice-C | | | | | | | [...] | | | care | | | Plastic Die Maker Apprentice-C | | | | | | | [...] | | | care | | | Plastic Die Maker Apprentice-C | | | | | | | [...] | | | care | | | Plastic Die Maker Apprentice-C | | | | | | | [...]
--- OUTSIDE RECORDS SUMMARY | ~2019-02-17 | XMS | Encounter Summary ---
Demographics + + + | Address | [address] | | | [place] [address] | + + + | Home Phone [...] Team Providers + +------+ + | Care Drawing Kiln Supervisor Name | Role | Phone | [...] call ) | | 2018 | | [facility] | DO [address] | | | | | MEDICAL CLINIC [address] | [facility], [place] | | | | | [address] [place], | [address] | | | | | [place] [address] | [phone] | | | | | [phone] | | | +--------+ + + + [...] [place] | | | | | | [address] | | | | | | [phone] | | | | | | | | +--------+---------+ + + + | 02/26/ | Office | Urology | Lillie Fowler | | | 2018 | Visit | | [address] | | | | | | [address] | | | | | | [place] | | | | | | [address] | | | | | | [phone] | | | | | | | | +--------+---------+ + + + | 03/16/ | Office | Neurology | Theresa, | | | 2018 | Visit | | [address] | | | | | | [address] [place], | | | | | | [place] [address] | | | | | | [phone] | | | | | | | | +--------+---------+ + + + | 04/12/ | Office | Primary Care | Massimo Ramos | | | 2019 | Visit | | [address] | | | | | | [place] | | | | | | [address] | | | | | | | | +--------+---------+ + + + | 10/03/ | Office | Neurology | Fabián Carias MD | | | 2020 | Visit | | [address] | | | | | | [place], [place] | | | | | | [address] | | | | | | | [...] | | care | | | Hog Feeder-C | | | | | | | [...] | | care | | | Hog Feeder-C | | | | | | | [...] | | care | | | Hog Feeder-C | | | | | | | [...] | | care | | | Hog Feeder-C | | | | | | | linical | + +--------+ +---+-----+ + + + | Note: Pt will | | check CBG's daily x1 | | Pt will take Lantis as | | prescribed | + + documented as of this encounter Visit Diagnoses Not on filedocumented in this encounter"
--- OUTSIDE RECORDS SUMMARY | ~2019-02-17 | XMS | Encounter Summary ---
Demographics + + + | Address | [address] | | | [place] [address] | + + + | Home Phone [...] Team Providers + +------+ + | Care Sanitation Manager Name | Role | Phone | [...] | | | | MANAGEMENT [address] | Admissions Director-Clinical | | | | | [place] | | | | | | [place] | | | | | | [address] | | | | | | [phone] | | | +--------+ + + + [...] [place] | | | | | | [address] | | | | | | [phone] | | | | | | | | +--------+---------+ + + + | 02/26/ | Office | Urology | Lillie Fowler | | | 2018 | Visit | | [address] | | | | | | [address] | | | | | | [place] | | | | | | [address] | | | | | | [phone] | | | | | | | | +--------+---------+ + + + | 03/16/ | Office | Neurology | Theresa, | | | 2018 | Visit | | [address] | | | | | | [address] [place], | | | | | | [place] [address] | | | | | | [phone] | | | | | | | | +--------+---------+ + + + | 04/12/ | Office | Primary Care | Massimo Ramos | | | 2019 | Visit | | [address] | | | | | | [place] | | | | | | [address] | | | | | | | | +--------+---------+ + + + | 10/03/ | Office | Neurology | Fabián Carias MD | | | 2019 | Visit | | [address] | | | | | | [place] | | | | | | [address] | | | | | | | [...] | | | care | | | Admissions Director-C | | | | | | [...] | | | care | | | Admissions Director-C | | | | | | [...] | | | care | | | Admissions Director-C | | | | | | [...] | | | care | | | Admissions Director-C | | | | | | [...]
--- OUTSIDE RECORDS SUMMARY | ~2019-02-17 | XMS | Encounter Summary ---
Demographics + + + | Address | [address] | | | [place] [address] | + + + | Home Phone [...] Team Providers + +------+ + | Care Firefighting Equipment Specialist Name | Role | Phone | [...] | | | | tient visit | [address] | [address] | | | | | est | [place] | [place] | | | | | [address], | [address] | [address] | | | | | Authorized | [address] | Phone: | | | | | For any | [place], [place] | [phone] | | | | | clinically | [address] | Fax: | | | | | necessary | Phone: | [phone] | | | | | Visits for | [phone] | | | | | | 365 days | Fax: | | | | | | AUTH NO: | [phone] | | | | | | [phone] | | | +--------+--------+ + + + + Encounter Details +--------+---------+ + + + | Date | Type | Department | Care Team | Description | +--------+---------+ + + + | 04/28/ | Office | [facility] | Faraz Tejada, | Abdominal pain, | | 2019 | Visit | [facility] | DNP [address] | chronic, left lower | | | | MEDICAL CLINIC [address] | [place] [address] | quadrant (Primary | | | | [address] [place], | [phone] | Dx); History of | | | | [place] [address] | | ventral hernia | | | | [phone] | | repair | +--------+---------+ + + [...] [place] | | | | | | [address] | | | | | | [phone] | | | | | | | | +--------+---------+ + + + | 02/26/ | Office | Urology | Lillie Fowler | | | 2018 | Visit | | [address] | | | | | | [address] | | | | | | [place] | | | | | | [address] | | | | | | [phone] | | | | | | | | +--------+---------+ + + + | 03/16/ | Office | Neurology | Theresa, | | | 2018 | Visit | | [address] | | | | | | [address] [place], | | | | | | [place] [address] | | | | | | [phone] | | | | | | | | +--------+---------+ + + + | 04/12/ | Office | Primary Care | Massimo Ramos | | | 2019 | Visit | | [address] | | | | | | [place] | | | | | | [address] | | | | | | | | +--------+---------+ + + + | 10/03/ | Office | Neurology | Fabián Carias MD | | | 2019 | Visit | | [address] | | | | | | [place] | | | | | | [address] | | | | | | | [...] | | | care | | | Navy Senior Officer-C | | | | | | [...] | | | care | | | Navy Senior Officer-C | | | | | | [...] | | | care | | | Navy Senior Officer-C | | | | | | [...] | | | care | | | Navy Senior Officer-C | | | | | | [...]
--- OUTSIDE RECORDS SUMMARY | ~2019-02-17 | XMS | Encounter Summary ---
Demographics + + + | Address | [address] | | | [place] [address] | + + + | Home Phone [...] Providers + +------+ + | Care Public Finance Specialist Name | Role | Phone | [...] | [address] [place], [place] | [place] [address] | | | | | [address] | [phone] | | | | | [phone] | | | +--------+ + + + [...] [place] | | | | | | [address] | | | | | | [phone] | | | | | | | | +--------+---------+ + + + | 02/26/ | Office | Urology | Lillie Fowler | | | 2018 | Visit | | [address] | | | | | | [address] | | | | | | [place] | | | | | | [address] | | | | | | [phone] | | | | | | | | +--------+---------+ + + + | 03/16/ | Office | Neurology | Theresa, | | | 2018 | Visit | | [address] | | | | | | [address] [place], | | | | | | [place] [address] | | | | | | [phone] | | | | | | | | +--------+---------+ + + + | 04/12/ | Office | Primary Care | Massimo Ramos | | | 2019 | Visit | | [address] | | | | | | [place] | | | | | | [address] | | | | | | | | +--------+---------+ + + + | 10/03/ | Office | Neurology | Fabián Carias MD | | | 2019 | Visit | | [address] | | | | | | [place] | | | | | | [address] | | | | | | | [...] | | care | | | Community Affairs Director-C | | | | | | [...] | | care | | | Community Affairs Director-C | | | | | | [...] | | care | | | Community Affairs Director-C | | | | | | [...] | | care | | | Community Affairs Director-C | | | | | | | linical | + +--------+ +---+-----+ + + + | Note: Pt will | | check CBG's daily x1 | | Pt will take Lantis as | | prescribed | + + documented as of this encounter Visit Diagnoses Not on filedocumented in this encounter"
--- OUTSIDE RECORDS SUMMARY | ~2019-02-17 | XMS | Encounter Summary ---
Demographics + + + | Address | [address] | | | [place] [address] | + + + | Home Phone [...] Team Providers + +------+ + | Care Purifying Plant Operator Name | Role | Phone [...] 2017 | | [facility] | [address] | | | | | MEDICAL CLINIC [address] | [facility], [place] | | | | | [address] [place], | [address] | | | | | [place] [address] | [phone] | | | | | [phone] | | | +--------+--------+ + + + [...] [place] | | | | | | [address] | | | | | | [phone] | | | | | | | | +--------+---------+ + + + | 02/26/ | Office | Urology | Lillie Fowler | | | 2019 | Visit | | [address] | | | | | | [address] | | | | | | [place], [place] | | | | | | [address] | | | | | | [phone] | | | | | | | | +--------+---------+ + + + | 03/16/ | Office | Neurology | Theresa, | | | 2018 | Visit | | [address] | | | | | | [address] [place], | | | | | | [place] [address] | | | | | | [phone] | | | | | | | | +--------+---------+ + + + | 04/12/ | Office | Primary Care | Massimo Ramos Pedro Luis | | | 2019 | Visit | | [address] | | | | | | [place] | | | | | | [address] | | | | | | | | +--------+---------+ + + + | 10/03/ | Office | Neurology | Fabián Carias MD | | | 2019 | Visit | | [address] | | | | | | [place] | | | | | | [address] | | | | | | | [...] | | | care | | | Funeral Sales Manager-C | | | | | [...] | | | care | | | Funeral Sales Manager-C | | | | | [...] | | | care | | | Funeral Sales Manager-C | | | | | [...] | | | care | | | Funeral Sales Manager-C | | | | | [...]
--- OUTSIDE RECORDS SUMMARY | ~2019-02-17 | XMS | Encounter Summary ---
Demographics + + + | Address | [address] | | | [place] [address] | + + + | Home Phone [...] Team Providers + +------+ + | Care Gis Mapping Technician Name | Role | Phone | [...] Medication Question | | 2019 | | [facility] | [address] [place] | | | | | MEDICAL CLIN[address] | [facility], [place] | | | | | [address] [place], | [address] | | | | | [place] [address] | [phone] | | | | | [phone] | | | +--------+ + + + [...] [place] | | | | | | [address] | | | | | | [phone] | | | | | | | | +--------+---------+ + + + | 02/26/ | Office | Urology | Lillie Fowler | | | 2018 | Visit | | [address] | | | | | | [address] | | | | | | [place], [place] | | | | | | [address] | | | | | | [phone] | | | | | | | | +--------+---------+ + + + | 03/16/ | Office | Neurology | Theresa, | | | 2019 | Visit | | [address] | | | | | | [address] [place], | | | | | | [place] [address] | | | | | | [phone] | | | | | | | | +--------+---------+ + + + | 04/12/ | Office | Primary Care | Massimo Ramos | | | 2019 | Visit | | [address] | | | | | | [place] | | | | | | [address] | | | | | | | | +--------+---------+ + + + | 10/03/ | Office | Neurology | Fabián Carias MD | | | 2019 | Visit | | [address] | | | | | | [place] | | | | | | [address] | | | | | | | [...] | | care | | | It Communications Specialist-C | | | | | | [...] | | care | | | It Communications Specialist-C | | | | | | [...] | | care | | | It Communications Specialist-C | | | | | | [...] | | care | | | It Communications Specialist-C | | | | | | [...]
--- OUTSIDE RECORDS SUMMARY | ~2019-02-17 | XMS | Encounter Summary ---
Demographics + + + | Address | [address] | | | [place] [address] | + + + | Home Phone [...] Team Providers + +------+ + | Care Slat Pickler Name | Role | Phone | + [...] Horacio Silvestre, | Medication Refill; | | 2018 | | [facility] | [address] | Medication Refill | | | | MEDICAL CLINIC [address] | [facility], [place] | | | | | [address] [place], | [address] | | | | | [place] [address] | [phone] | | | | | [phone] | | | +--------+--------+ + + + [...] [place] | | | | | | [address] | | | | | | [phone] | | | | | | | | +--------+---------+ + + + | 02/26/ | Office | Urology | Lillie Fowler | | | 2018 | Visit | | [address] | | | | | | [address] | | | | | | [place], [place] | | | | | | [address] | | | | | | [phone] | | | | | | | | +--------+---------+ + + + | 03/16/ | Office | Neurology | Theresa, | | | 2018 | Visit | | [address] | | | | | | [address] [place], | | | | | | [place] [address] | | | | | | [phone] | | | | | | | | +--------+---------+ + + + | 04/12/ | Office | Primary Care | Massimo Ramos | | | 2019 | Visit | | [address] | | | | | | [place] | | | | | | [address] | | | | | | | | +--------+---------+ + + + | 10/03/ | Office | Neurology | Fabián Carias MD | | | 2019 | Visit | | [address] | | | | | | [place] | | | | | | [address] | | | | | | | [...] | | care | | | Manager Global-C | | | | | | | [...] | | care | | | Manager Global-C | | | | | | | [...] | | care | | | Manager Global-C | | | | | | | [...] | | care | | | Manager Global-C | | | | | | | [...]
--- OUTSIDE RECORDS SUMMARY | ~2019-02-17 | XMS | Encounter Summary ---
Demographics + + + | Address | [address] | | | [place] [address] | + + + | Home Phone [...] Providers + +------+ + | Care Supervisor Water Softener Service Name | Role | Phone | [...] + + | 01/14/ | Telephone | [facility] | Constantine | ED Follow-up | | 2019 | | [facility] | Deana Stoll RN | | | | | MEDICAL CLIN[facility] [address] | | | | | | [address] [place], | | | | | | [place] [address] | | | | | | [phone] | | | +--------+ + + + [...] [place] | | | | | | [address] | | | | | | [phone] | | | | | | | | +--------+---------+ + + + | 02/26/ | Office | Urology | Lillie Fowler | | | 2018 | Visit | | [address] | | | | | | [address] | | | | | | [place], [place] | | | | | | [address] | | | | | | [phone] | | | | | | | | +--------+---------+ + + + | 03/16/ | Office | Neurology | Theresa, | | | 2018 | Visit | | [address] | | | | | | [address] [place], | | | | | | [place] [address] | | | | | | [phone] | | | | | | | | +--------+---------+ + + + | 04/12/ | Office | Primary Care | Massimo Ramos | | | 2019 | Visit | | [address] | | | | | | [place] | | | | | | [address] | | | | | | | | +--------+---------+ + + + | 10/03/ | Office | Neurology | Fabián Carias MD | | | 2019 | Visit | | [address] | | | | | | [place] | | | | | | [address] | | | | | | | [...] | | | care | | | Contract Negotiator-C | | | | | | | [...] | | | care | | | Contract Negotiator-C | | | | | | | [...] | | | care | | | Contract Negotiator-C | | | | | | | [...] | | | care | | | Contract Negotiator-C | | | | | | | [...]
--- OUTSIDE RECORDS SUMMARY | ~2019-02-17 | XMS | Encounter Summary ---
Demographics + + + | Address | [address] | | | [place] [address] | + + + | Home Phone [...] Team Providers + +------+ + | Care Nuclear Equipment Design Engineer Name | Role | Phone | [...] | +--------+ + + + + | 02/24/ | Telephone | [facility] | Horacio Silvestre, | Medication Refill | | 2017 | | [facility] | DO [address] [place] | | | | | MEDICAL CLINIC [address] | [facility], [place] | | | | | [address] [place], | [address] | | | | | [place] [address] | [phone] | | | | | [phone] | | | +--------+ + + + [...] [place] | | | | | | [address] | | | | | | [phone] | | | | | | | | +--------+---------+ + + + | 02/26/ | Office | Urology | Lillie Fowler | | | 2018 | Visit | | [address] | | | | | | [address] | | | | | | [place], [place] | | | | | | [address] | | | | | | [phone] | | | | | | | | +--------+---------+ + + + | 03/16/ | Office | Neurology | Theresa, | | | 2018 | Visit | | [address] | | | | | | [address] [place], | | | | | | [place] [address] | | | | | | [phone] | | | | | | | | +--------+---------+ + + + | 04/12/ | Office | Primary Care | Massimo Ramos Pedro Luis | | | 2019 | Visit | | [address] | | | | | | [place] | | | | | | [address] | | | | | | | | +--------+---------+ + + + | 10/03/ | Office | Neurology | Fabián Carias MD | | | 2019 | Visit | | [address] | | | | | | [place] | | | | | | [address] | | | | | | | [...] | | | care | | | Energy Director-C | | | | | | [...] | | | care | | | Energy Director-C | | | | | | [...] | | | care | | | Energy Director-C | | | | | | [...] | | | care | | | Energy Director-C | | | | | | [...]
--- OUTSIDE RECORDS SUMMARY | ~2019-02-17 | XMS | Encounter Summary ---
Demographics + + + | Address | [address] | | | [place] [address] | + + + | Home Phone [...] Team Providers + +------+ + | Care Nurses Aide Name | Role | Phone | [...] Medication Question | | 2019 | | [facility] | [address] [place] | | | | | MEDICAL CLINIC [address] | [facility], [place] | | | | | [address] [place], | [address] | | | | | [place] [address] | [phone] | | | | | [phone] | | | +--------+ + + + [...] [place] | | | | | | [address] | | | | | | [phone] | | | | | | | | +--------+---------+ + + + | 02/26/ | Office | Urology | Lillie Fowler | | | 2018 | Visit | | [address] | | | | | | [address] | | | | | | [place], [place] | | | | | | [address] | | | | | | [phone] | | | | | | | | +--------+---------+ + + + | 03/16/ | Office | Neurology | Theresa, | | | 2019 | Visit | | [address] | | | | | | [address] [place], | | | | | | [place] [address] | | | | | | [phone] | | | | | | | | +--------+---------+ + + + | 04/12/ | Office | Primary Care | Massimo Ramos | | | 2019 | Visit | | [address] | | | | | | [place] | | | | | | [address] | | | | | | | | +--------+---------+ + + + | 10/03/ | Office | Neurology | Fabián Carias MD | | | 2019 | Visit | | [address] | | | | | | [place] | | | | | | [address] | | | | | | | [...] n of | | | Cahrline Dos Santos, | | dehydration | | complex | | | Case | | | | care | | | Special Police-C | | | | | | | [...] | | care | | | Special Police-C | | | | | | | [...] | | care | | | Special Police-C | | | | | | | [...] | | care | | | Special Police-C | | | | | | | [...]
--- OUTSIDE RECORDS SUMMARY | ~2019-02-17 | XMS | Encounter Summary ---
Demographics + + + | Address | [address] | | | [place] [address] | + + + | Home Phone [...] Team Providers + +------+ + | Care Night Clerk Auditor Name | Role | Phone | + +------+ + | Horacio Silvestre DO | PCP | | + +------+ + Encounter Details +--------+ + + + + | Date | Type | Department | Care Team | Description | +--------+ + + + + | 05/29/ | Care | [facility] | Charline Banks, | ERRONEOUS | | 2019 | Coordinatio | [facility] OP [facility] | Case | ENCOUNTER--DISREGARD | | | n | MANAGEMENT [address] | Personal Insurance Advisor-Clinical | (Primary Dx) | | | | [address] [place] | | | | | | [place] | | | | | | [address] | | | | | | [phone] | | | +--------+ + + + [...] + documented as of this encounter Progress Charline Pascual, Public Works Inspector-Clinical - 05/29/2018 3:38 PM PSTThis encounter was created in error - please disregard.Electronically signed by Charline Banks Public Works Inspector-Clinical ludy t 06/02/2018 8:44 AM PSTdocumented in this encounter Plan of Treatment +--------+---------+ [...] [place] | | | | | | [address] | | | | | | [phone] | | | | | | | | +--------+---------+ + + + | 02/26/ | Office | Urology | Lillie Fowler | | | 2018 | Visit | | [address] | | | | | | [address] | | | | | | [place], [place] | | | | | | [address] | | | | | | [phone] | | | | | | | | +--------+---------+ + + + | 03/16/ | Office | Neurology | Theresa, | | | 2018 | Visit | | [address] | | | | | | [address] [place], | | | | | | [place] [address] | | | | | | [phone] | | | | | | | | +--------+---------+ + + + | 04/12/ | Office | Primary Care | Massimo Ramos | | | 2019 | Visit | | [address] | | | | | | [place] | | | | | | [address] | | | | | | | | +--------+---------+ + + + | 10/03/ | Office | Neurology | Fabián Carias MD | | | 2019 | Visit | | [address] | | | | | | [place] | | | | | | [address] | | | | | | | [...] | | | care | | | Personal Insurance Advisor-C | | | | | | [...] | | | care | | | Personal Insurance Advisor-C | | | | | | [...] | | | care | | | Personal Insurance Advisor-C | | | | | | [...] | | | care | | | Personal Insurance Advisor-C | | | | | | | linical | + +--------+ +---+-----+ + + + | Note: Pt will | | check CBG's daily x1 | | Pt will take Lantis as | | prescribed | + + documented as of this encounter Visit Diagnoses + + | Diagnosis | + + | ERRONEOUS ENCOUNTER--DISREGARD - Primary | + + documented in this encounter"
--- OUTSIDE RECORDS SUMMARY | ~2019-02-17 | XMS | Encounter Summary ---
Demographics + + + | Address | [address] | | | [place] [address] | + + + | Home Phone [...] Team Providers + +------+ + | Care Interactive Media Specialist Name | Role | Phone | [...] Medication Question | | 2019 | | [facility] | [address] [place] | | | | | MEDICAL CLINIC [address] | [facility] [address], [place] | | | | | [address] [place], | [address] | | | | | [place] [address] | [phone] | | | | | [phone] | | | +--------+ + + + [...] [place] | | | | | | [address] | | | | | | [phone] | | | | | | | | +--------+---------+ + + + | 02/26/ | Office | Urology | Lillie Fowler | | | 2018 | Visit | | [address] | | | | | | [address] | | | | | | [place], [place] | | | | | | [address] | | | | | | [phone] | | | | | | | | +--------+---------+ + + + | 03/16/ | Office | Neurology | Theresa, | | | 2018 | Visit | | [address] | | | | | | [address] [place], | | | | | | [place] [address] | | | | | | [phone] | | | | | | | | +--------+---------+ + + + | 04/12/ | Office | Primary Care | Massimo Ramos Pedro Luis | | | 2019 | Visit | | [address] | | | | | | [place] | | | | | | [address] | | | | | | | | +--------+---------+ + + + | 10/03/ | Office | Neurology | Fabián Carias MD | | | 2019 | Visit | | [address] | | | | | | [place] | | | | | | [address] | | | | | | | [...] | | care | | | Contract Administrator-C | | | | | | [...] | | care | | | Contract Administrator-C | | | | | | [...] | | care | | | Contract Administrator-C | | | | | | [...] | | care | | | Contract Administrator-C | | | | | | [...]
--- OUTSIDE RECORDS SUMMARY | ~2019-02-17 | XMS | Encounter Summary ---
Demographics + + + | Address | [address] | | | [place] [address] | + + + | Home Phone [...] Team Providers + +------+ + | Care Wheel Presser Name | Role | Phone | + [...] | | | [address] [place], | [facility], [place] | | | | | [place] [address] | [address] | | | | | [phone] | [phone] | | | | | | | [...] [place] | | | | | | [address] | | | | | | [phone] | | | | | | | | +--------+---------+ + + + | 02/26/ | Office | Urology | Lillie Fowler | | | 2018 | Visit | | [address] Lopez [address] | | | | | | [address] | | | | | | [place] | | | | | | [address] | | | | | | [phone] | | | | | | | | +--------+---------+ + + + | 03/16/ | Office | Neurology | Theresa, | | | 2018 | Visit | | SHONDA Mck[address] | | | | [address] [place], | | | | | | [place] [address] | | | | | | [phone] | | | | | | | | +--------+---------+ + + + | 04/12/ | Office | Primary Care | Massimo Ramos | | | 2019 | Visit | | MD Fer [address] | | | | | | [address] [place] | | | | | | [address] | | | | | | | | +--------+---------+ + + + | 10/03/ | Office | Neurology | Fabián Carias MD | | | 2019 | Visit | | [address] | | | | | | [place] | | | | | | [address] | | | | | | | [...] | | | care | | | [employer] | | | | | | | [...] | | | care | | | [employer] | | | | | | | [...] | | | care | | | [employer] | | | | | | | [...] | | | care | | | [employer] | | | | | | | linical | + +--------+ +---+-----+ + + + | Note: Pt will | | check CBG's daily x1 | | Pt will take Lantis as | | prescribed | + + documented as of this encounter Visit Diagnoses Not on filedocumented in this encounter"
--- OUTSIDE RECORDS SUMMARY | ~2019-02-17 | XMS | Encounter Summary ---
Demographics + + + | Address | [address] | | | [place] [address] | + + + | Home Phone [...] Providers + +------+ + | Care Public Health Director Name | Role | Phone | [...] | | [facility] | [facility], [place] | | | | | [address] [place], | [address] | | | | | [place] [address] | [phone] | | | | | [phone] | | | +--------+ + + + [...] [place] | | | | | | [address] | | | | | | [phone] | | | | | | | | +--------+---------+ + + + | 02/26/ | Office | Urology | Lillie Fowler | | | 2018 | Visit | | [address] | | | | | | [address] | | | | | | [place], [place] | | | | | | [address] | | | | | | [phone] | | | | | | | | +--------+---------+ + + + | 03/16/ | Office | Neurology | Theresa, | | | 2018 | Visit | | [address] | | | | | | [address] [place], | | | | | | [place] [address] | | | | | | [phone] | | | | | | | | +--------+---------+ + + + | 04/12/ | Office | Primary Care | Massimo Ramos | | | 2019 | Visit | | MD [address] | | | | | | [address] [place] | | | | | | [address] | | | | | | | | +--------+---------+ + + + | 10/03/ | Office | Neurology | Fabián Carias MD | | | 2019 | Visit | | [address] | | | | | | [place] | | | | | | [address] | | | | | | | [...] | | | care | | | Revolving Inventory Clerk-C | | | | | [...] | | | care | | | Revolving Inventory Clerk-C | | | | | [...] | | | care | | | Revolving Inventory Clerk-C | | | | | [...] | | | care | | | Revolving Inventory Clerk-C | | | | | [...]
--- OUTSIDE RECORDS SUMMARY | ~2019-02-17 | XMS | Encounter Summary ---
Demographics + + + | Address | [address] | | | [place] [address] | + + + | Home Phone [...] Team Providers + +------+ + | Care Surgical Asst Name | Role | Phone | + +------+ + | Horacio Silvestre DO | PCP | | + +------+ + Encounter Details +--------+ + + + + | Date | Type | Department | Care Team | Description | +--------+ + + + + | 10/19/ | Orders Only | [facility] [facility] | Horacio Silvestre, | | | 2019 | | [facility] | DO [address] | | | | | [facility] [address] | [place], [place] | | | | | [address] [place], | [address] | | | | | [place] [address] | [phone] | | | | | [phone] | | | +--------+ + + + [...] [place] | | | | | | [address] | | | | | | [phone] | | | | | | | | +--------+---------+ + + + | 02/26/ | Office | Urology | Lillie Fowler | | | 2018 | Visit | | [address] | | | | | | [address] | | | | | | [place] | | | | | | [address] | | | | | | [phone] | | | | | | | | +--------+---------+ + + + | 03/16/ | Office | Neurology | Theresa, | | | 2018 | Visit | | [address] | | | | | | [address] [place], | | | | | | [place] [address] | | | | | | [phone] | | | | | | | | +--------+---------+ + + + | 04/12/ | Office | Primary Care | Massimo Ramos | | | 2019 | Visit | | MD [address] | | | | | | [place] | | | | | | [address] | | | | | | | | +--------+---------+ + + + | 10/03/ | Office | Neurology | Fabián Carias MD | | | 2019 | Visit | | [address] | | | | | | [place], [place] | | | | | | [address] | | | | | | | [...] | | | care | | | Math Specialist-C | | | | | | [...] | | | care | | | Math Specialist-C | | | | | | [...] | | | care | | | Math Specialist-C | | | | | | [...] | | | care | | | Math Specialist-C | | | | | | [...]
--- OUTSIDE RECORDS SUMMARY | ~2019-02-17 | XMS | Encounter Summary ---
Demographics + + + | Address | [address] | | | [place] [address] | + + + | Home Phone [...] Team Providers + +------+ + | Care Brilliandeer Lopper Name | Role | Phone | + [...] 2019 | | [facility] | BOMB LOADER [address] , | | | | | MANA[address] | [address] [place], | | | | | [address] [place] | [place] [address] | | | | | [place], [place] | [phone] | | | | | [address] | | | | | | [phone] | | | +--------+ + + + [...] [place] | | | | | | [address] | | | | | | [phone] | | | | | | | | +--------+---------+ + + + | 02/26/ | Office | Urology | Lillie Fowler | | | 2018 | Visit | | [address] | | | | | | [address] | | | | | | [place], [place] | | | | | | [address] | | | | | | [phone] | | | | | | | | +--------+---------+ + + + | 03/16/ | Office | Neurology | Theresa, | | | 2018 | Visit | | [address] | | | | | | [address] [place], | | | | | | [place] [address] | | | | | | [phone] | | | | | | | | +--------+---------+ + + + | 04/12/ | Office | Primary Care | Massimo Ramos | | | 2019 | Visit | | [address] | | | | | | [place] | | | | | | [address] | | | | | | | | +--------+---------+ + + + | 10/03/ | Office | Neurology | Fabián Carias MD | | | 2019 | Visit | | [address] | | | | | | [place] | | | | | | [address] | | | | | | | [...] | | | care | | | Glass Novelty Maker-C | | | | | | [...] | | | care | | | Glass Novelty Maker-C | | | | | | [...] | | | care | | | Glass Novelty Maker-C | | | | | | [...] | | | care | | | Glass Novelty Maker-C | | | | | | | linical | + +--------+ +---+-----+ + + + | Note: Pt will | | check CBG's daily x1 | | Pt will take Lantis as | | prescribed | + + documented as of this encounter Visit Diagnoses Not on filedocumented in this encounter"
--- OUTSIDE RECORDS SUMMARY | ~2019-02-17 | XMS | Encounter Summary ---
Demographics + + + | Address | [address] | | | [place] [address] | + + + | Home Phone [...] Team Providers + +------+ + | Care Family Service Caseworker Name | Role | Phone | + [...] | | | [facility] | Application Coordinator-Clinical | | | | | [address] [facility] [place], | | | | | | [place] [address] | | | | | | [phone] | | | +--------+ + + + [...] [place] | | | | | | [address] | | | | | | [phone] | | | | | | | | +--------+---------+ + + + | 02/26/ | Office | Urology | Lillie Fowler | | | 2018 | Visit | | [address] | | | | | | [address] | | | | | | [place], [place] | | | | | | [address] | | | | | | [phone] | | | | | | | | +--------+---------+ + + + | 03/16/ | Office | Neurology | Theresa, | | | 2018 | Visit | | [address] | | | | | | [address] [place], | | | | | | [place] [address] | | | | | | [phone] | | | | | | | | +--------+---------+ + + + | 04/12/ | Office | Primary Care | Massimo Ramos | | | 2019 | Visit | | [address] | | | | | | [place] | | | | | | [address] | | | | | | | | +--------+---------+ + + + | 10/03/ | Office | Neurology | Fabián Carias MD | | | 2019 | Visit | | [address] | | | | | | [place] | | | | | | [address] | | | | | | | [...] | | | care | | | Application Coordinator-C | | | | | | [...] | | | care | | | Application Coordinator-C | | | | | | [...] | | | care | | | Application Coordinator-C | | | | | | [...] | | | care | | | Application Coordinator-C | | | | | | [...]
--- OUTSIDE RECORDS SUMMARY | ~2019-02-17 | XMS | Encounter Summary ---
Demographics + + + | Address | [address] | | | [place] [address] | + + + | Home Phone [...] Providers + +------+ + | Care Machine Adjuster Name | Role | Phone | [...] | | | [facility] [address] | [facility], [place] | | | | | [address] [place], | [address] | | | | | [place] [address] | [phone] | | | | | [phone] | | | +--------+ + + + [...] [place] | | | | | | [address] | | | | | | [phone] | | | | | | | | +--------+---------+ + + + | 02/26/ | Office | Urology | Lillie Fowler | | | 2018 | Visit | | [address] | | | | | | [address] | | | | | | [place], [place] | | | | | | [address] | | | | | | [phone] | | | | | | | | +--------+---------+ + + + | 03/16/ | Office | Neurology | Theresa, | | | 2018 | Visit | | [address] | | | | | | [address] [place], | | | | | | [place] [address] | | | | | | [phone] | | | | | | | | +--------+---------+ + + + | 04/12/ | Office | Primary Care | Massimo Ramos | | | 2019 | Visit | | MD [address] | | | | | | [place] | | | | | | [address] | | | | | | | | +--------+---------+ + + + | 10/03/ | Office | Neurology | Fabián aCrias MD | | | 2019 | Visit | | [address] | | | | | | [place] | | | | | | [address] | | | | | | | [...] | | | care | | | Editor & Co Founder-C | | | | | | | [...] | | | care | | | Editor & Co Founder-C | | | | | | | [...] | | | care | | | Editor & Co Founder-C | | | | | | | [...] | | | care | | | Editor & Co Founder-C | | | | | | | [...]
--- OUTSIDE RECORDS SUMMARY | ~2019-02-17 | XMS | Encounter Summary ---
Demographics + + + | Address | [address] | | | [place] [address] | + + + | Home Phone [...] Team Providers + +------+ + | Care Md Senior Research Scientist Name | Role | Phone | + [...] | | | [facility] | Rn Emergency Room-Clinical | | | | | [address]TH [facility], | | | | | | [place] [address] | | | | | | [phone] | | | +--------+ + + + [...] [place] | | | | | | [address] | | | | | | [phone] | | | | | | | | +--------+---------+ + + + | 02/26/ | Office | Urology | Lillie Fowler | | | 2018 | Visit | | [address] | | | | | | [address] | | | | | | [place], [place] | | | | | | [address] | | | | | | [phone] | | | | | | | | +--------+---------+ + + + | 03/16/ | Office | Neurology | Theresa, | | | 2018 | Visit | | [address] | | | | | | [address] [place], | | | | | | [place] [address] | | | | | | [phone] | | | | | | | | +--------+---------+ + + + | 04/12/ | Office | Primary Care | Massimo Ramos Pedro Luis | | | 2019 | Visit | | [address] | | | | | | [place] | | | | | | [address] | | | | | | | | +--------+---------+ + + + | 10/03/ | Office | Neurology | Fabián Carias MD | | | 2019 | Visit | | [address] | | | | | | [place] | | | | | | [address] | | | | | | | [...] | | care | | | Rn Emergency Room-C | | | | | | | [...] | | care | | | Rn Emergency Room-C | | | | | | | [...] | | care | | | Rn Emergency Room-C | | | | | | | [...] | | care | | | Rn Emergency Room-C | | | | | | | [...]
--- OUTSIDE RECORDS SUMMARY | ~2019-02-17 | XMS | Encounter Summary ---
Demographics + + + | Address | [address] | | | [place] [address] | + + + | Home Phone [...] Team Providers + +------+ + | Care Greenskeeper Name | Role | Phone | + +------+ + | Ryan Gutiérrez MD | PCP | | + +------+ + Encounter Details +--------+ + + + + | Date | Type | Department | Care Team | Description | +--------+ + + + + | 12/05/ | Hospital | [facility] [facility] | Christ Quintero, | | | 2017 | Encounter | [facility] | DO [address] , | | | | | [address] | [address] [place], [place] | | | | | [place], [place] | [address] | | | | | [address] | [phone] | | | | | [phone] | | | +--------+ + + + [...] [place] | | | | | | [address] | | | | | | [phone] | | | | | | | | +--------+---------+ + + + | 02/26/ | Office | Urology | Malcolm Lillie | | | 2018 | Visit | | [address] | | | | | | [address] | | | | | | [place], [place] | | | | | | [address] | | | | | | [phone] | | | | | | | | +--------+---------+ + + + | 03/16/ | Office | Neurology | Theresa, | | | 2018 | Visit | | [address] | | | | | | [address] [place], | | | | | | [place] [address] | | | | | | [phone] | | | | | | | | +--------+---------+ + + + | 04/12/ | Office | Primary Care | Massimo Ramos | | | 2019 | Visit | | MD [address] | | | | | | [place] | | | | | | [address] | | | | | | | | +--------+---------+ + + + | 10/03/ | Office | Neurology | Fabián Carias MD | | | 2019 | Visit | | [address] | | | | | | [place] | | | | | | [address] | | | | | | | [...] | | | care | | | Front Desk Manager-C | | | | | | [...] | | | care | | | Front Desk Manager-C | | | | | | [...] | | | care | | | Front Desk Manager-C | | | | | | [...] | | | care | | | Front Desk Manager-C | | | | | | [...] in | | | multiple projections show raka-pg-axby articulation of the distal | | | [...] | dissociation suggest carpal instability.. JOB #: [id number] | | | Digitally Released by: Massimo [...] | | Films in multiple projections show gdsw-sn-sdbp articulation of the distal | | radius [...] | | | | | JOB #: [id number] | | Digitally Released by: Massimo Nunez | | | | | | Read By: MASSIMO NUNEZ MD | | Date: 12/05/2016 12:35 | | | + + documented in this encounter Visit Diagnoses Not on filedocumented in this encounter"
--- OUTSIDE RECORDS SUMMARY | ~2019-02-17 | XMS | Encounter Summary ---
Demographics + + + | Address | [address] | | | [place] [address] | + + + | Home Phone [...] Team Providers + +------+ + | Care Secondary School Teacher Librarian Name | Role | Phone | [...] | | | [facility] | Steward/Stewardess Night-Clinical | | | | | [facility] [facility] [place], | | | | | | [place] [address] | | | | | | [phone] | | | +--------+ + + + [...] [place] | | | | | | [address] | | | | | | [phone] | | | | | | | | +--------+---------+ + + + | 02/26/ | Office | Urology | Lillie Fowler | | | 2018 | Visit | | [address] | | | | | | [address] | | | | | | [place], [place] | | | | | | [address] | | | | | | [phone] | | | | | | | | +--------+---------+ + + + | 03/16/ | Office | Neurology | Theresa, | | | 2018 | Visit | | [address] | | | | | | [address] [place], | | | | | | [place] [address] | | | | | | [phone] | | | | | | | | +--------+---------+ + + + | 04/12/ | Office | Primary Care | Massimo Ramos | | | 2019 | Visit | | MD [address] | | | | | | [place] | | | | | | [address] | | | | | | | | +--------+---------+ + + + | 10/03/ | Office | Neurology | Fabián Carias MD | | | 2019 | Visit | | [address] | | | | | | [place] | | | | | | [address] | | | | | | | [...] | | | care | | | Steward/Stewardess Night-C | | | | | | | [...] | | | care | | | Steward/Stewardess Night-C | | | | | | | [...] | | | care | | | Steward/Stewardess Night-C | | | | | | | [...] | | | care | | | Steward/Stewardess Night-C | | | | | | | [...]
--- OUTSIDE RECORDS SUMMARY | ~2019-02-17 | XMS | Encounter Summary ---
Demographics + + + | Address | [address] | | | [place] [address] | + + + | Home Phone [...] Providers + +------+ + | Care Assistant [employer] Name | Role | Phone | + [...] | [facility] | [address] | | | | | [facility]ICAL [facility] [address] | [facility], [place] | | | | | [address] [place], | [address] | | | | | [place] [address] | [phone] | | | | | [phone] | | | +--------+ + + + [...] [place] | | | | | | [address] | | | | | | [phone] | | | | | | | | +--------+---------+ + + + | 02/26/ | Office | Urology | Lillie Fowler | | | 2018 | Visit | | [address] | | | | | | [address] | | | | | | [place], [place] | | | | | | [address] | | | | | | [phone] | | | | | | | | +--------+---------+ + + + | 03/16/ | Office | Neurology | Theresa, | | | 2018 | Visit | | [address] | | | | | | [address] [place], | | | | | | [place] [address] | | | | | | [phone] | | | | | | | | +--------+---------+ + + + | 04/12/ | Office | Primary Care | Massimo Ramos Pedro Luis | | | 2019 | Visit | | MD Fer [address] | | | | | | [place] | | | | | | [address] | | | | | | | | +--------+---------+ + + + | 10/03/ | Office | Neurology | Fabián Carias MD | | | 2019 | Visit | | [address] | | | | | | [place] | | | | | | [address] | | | | | | | [...] | care | | | Director Of Human Resources-C | | | | | | | [...] | care | | | Director Of Human Resources-C | | | | | | | [...] | care | | | Director Of Human Resources-C | | | | | | | [...] | care | | | Director Of Human Resources-C | | | | | | | linical | + +--------+ +---+-----+ + + + | Note: Pt will | | check CBG's daily x1 | | Pt will take Lantis as | | prescribed | + + documented as of this encounter Visit Diagnoses Not on filedocumented in this encounter"
--- OUTSIDE RECORDS SUMMARY | ~2019-02-17 | XMS | Encounter Summary ---
Demographics + + + | Address | [address] | | | [place] [address] | + + + | Home Phone [...] Providers + +------+ + | Care Insurance Territory Manager Name | Role | Phone | + +------+ + | Ryan Gutiérrez MD | PCP | | + +------+ + Encounter Details +--------+ + + + + | Date | Type | Department | Care Team | Description | +--------+ + + + + | 06/11/ | Hospital | [facility] | Scott De Oliveira | | | 2017 | Encounter | [facility] | DO [address] | | | | | SURGERY [address] | [address] | | | | | [address] [place], | [facility], [place] | | | | | [place] [address] | [address] | | | | | [phone] | [phone] | | | | | | | [...] [place] | | | | | | [address] | | | | | | [phone] | | | | | | | | +--------+---------+ + + + | 02/26/ | Office | Urology | Lillie Fowler | | | 2018 | Visit | | [address] | | | | | | [address] | | | | | | [place] | | | | | | [address] | | | | | | [phone] | | | | | | | | +--------+---------+ + + + | 03/16/ | Office | Neurology | Theresa, | | | 2018 | Visit | | [address] | | | | | | [address] [place], | | | | | | [place] [address] | | | | | | [phone] | | | | | | | | +--------+---------+ + + + | 04/12/ | Office | Primary Care | Massimo Ramos | | | 2019 | Visit | | MD [address] | | | | | | [place] | | | | | | [address] | | | | | | | | +--------+---------+ + + + | 10/03/ | Office | Neurology | Fabián Carias MD | | | 2019 | Visit | | [address] | | | | | | [place] | | | | | | [address] | | | | | | | [...]
--- OUTSIDE RECORDS SUMMARY | ~2019-02-17 | XMS | Encounter Summary ---
Demographics + + + | Address | [address] | | | [place] [address] | + + + | Home Phone [...] Team Providers + +------+ + | Care Heart Nurse Name | Role | Phone | + +------+ + | Horacio Silvestre DO | PCP | | + +------+ + Reason for Referral Consultation (Emergency) +--------+ + + + + + | Status | Reason | Specialty | Diagnoses / | Referred By | Referred To | | | | | Procedures | Contact | Contact | +--------+ + + + + + | Closed | Specialty | Neurology | Diagnoses | McIjuliooil, | Carias, | | | Services | | Transient | Macario | Fabián Panda MD | | | Required | | cerebral | DO Scott | [address] | | | | | ischemic | [address] | [address] | | | | | attack, | [place] | [place], [place] | | | | | unspecified | [place], [place] | [address] Phone: | | | | | Procedures | [address] | [phone] | | | | | ER followup | Phone: | Fax: | | | | | | [phone] | [phone] | | | | | | Fax: | | | | | | | [phone] | | +--------+ + + + + + Reason for Visit + + + | Reason | Comments | + + + | Weakness | | + + + Encounter Details +--------+ + + + + | Date | Type | Department | Care Team | Description | +--------+ + + + + | 05/13/ | Emergency | [facility] | Macario Sibley | TIA (transient | | 2019 | | [facility] | DO [address] | ischemic attack) | | | | CENTER [address] | [address] [place] | (Primary Dx) | | | | [address] [place], [place] | [place] [address] | | | | | [address] | [phone] | | | | | [phone] | | | +--------+ + + + [...] + + + | Blood Pressure | 155/91 | 05/13/2018 12:00 PM | | | | | PST | | + + + + + | Pulse | 61 | 05/13/2018 12:00 PM | | | | | PST | | + + + + + | Temperature | 36.5 C (97.7 F) | 05/13/2018 10:16 AM | | | | | PST | | + + + + + | Respiratory Rate | 16 | 05/13/2018 12:00 PM | | | | | PST | | + + + + + | Oxygen Saturation | 92% | 05/13/2018 12:06 PM | | | | | PST | | + + + + + | Inhaled Oxygen | - | - | | | Concentration | | | | + + + + + | Weight | 90.7 kg (200 lb) | 05/13/2018 10:16 AM | | | | | PST | | + + + + + | Height | 167.6 cm (5' 6") | 05/13/2018 10:16 AM | | | | | PST | | + + + + + | Body Mass Index | 32.28 | 05/13/2018 10:16 AM | | | | | PST [...] as of this encounter Discharge Instructions Macario Barrientos, - 05/13/2018Follow up with Dr Carias. AttachmentsThe following attachments cannot be sent through Care Everywhere.TIA, What Is (E nglish)documented in this encounter Medications at Time of [...] | | | | | | disease, senior care | | | | | | | [...] | | | | | | disease, senior care | | | | | | | [...] [place] | | | | | | [address] | | | | | | [phone] | | | | | | | | +--------+---------+ + + + | 02/26/ | Office | Urology | Lillie Fowler | | | 2018 | Visit | | LILLIE Lopez [address] | | | | | | [address] | | | | | | [place] | | | | | | [address] | | | | | | [phone] | | | | | | | | +--------+---------+ + + + | 03/16/ | Office | Neurology | Theresa, | | | 2018 | Visit | | [address] | | | | | [address] [place], | | | | | | [place] [address] | | | | | | [phone] | | | | | | | | +--------+---------+ + + + | 04/12/ | Office | Primary Care | Massimo Ramos | | | 2019 | Visit | | MD Fer [address] | | | | | | [place] | | | | | | [address] | | | | | | | | +--------+---------+ + + + | 10/03/ | Office | Neurology | Fabián Carias MD | | | 2019 | Visit | | [address] | | | | | | [place] | | | | | | [address] | | | | | | | | +--------+---------+ + + + + +------+--------+ + + | Name | Type | Priori | Associated Diagnoses | Date/Time | | | | ty | | | + +------+--------+ + + | ED INFORMATION | ROMMEL | Routin | | 05/13/2018 10:01 AM | | EXCHANGE | | e | | PST | + +------+--------+ + + + + +--------+ + + | Name | Type | Priori | Associated Diagnoses | Order Schedule | | | | ty | | | + + +--------+ + + | AMB Referral to CC | Outpatient | STAT | | Ordered: 05/13/2018 | | [facility] | Referral | | | | + + +--------+ [...] | | care | | | Certified Fraud Examiner-C | | | | | | [...] | | care | | | Certified Fraud Examiner-C | | | | | | [...] | | care | | | Certified Fraud Examiner-C | | | | | | [...] | | care | | | Certified Fraud Examiner-C | | | | | | [...] CT HEAD WO CONTRAST | STAT | 05/13/2018 | | Results for this | | | | 11:04 AM | | procedure are in the | | | | PST | | results section. | + +--------+ + + + | URINALYSIS WITH | STAT | 05/13/2018 | | Results for this | | MICROSCOPIC WITH | | 10:39 AM | | procedure are in the | | CULTURE IF INDICATED | | PST | | results section. | + +--------+ + + + | TSH, REFLEX FREE T4 | STAT | 05/13/2018 | | Results for this | | | | 10:20 AM | | procedure are in the | | | | PST | | results section. | + +--------+ + + + | TROPONIN I | STAT | 05/13/2018 | | Results for this | | | | 10:20 AM | | procedure are in the | | | | PST | | results section. | + +--------+ + + + | CBC WITH | STAT | 05/13/2018 | | Results for this | | DIFFERENTIAL | | 10:20 AM | | procedure are in the | | | | PST | | results section. | + +--------+ + + + | MAGNESIUM | STAT | 05/13/2018 | | Results for this | | | | 10:20 AM | | procedure are in the | | | | PST | | results section. | + +--------+ + + + | LACTIC ACID | STAT | 05/13/2018 | | Results for this | | | | 10:20 AM | | procedure are in the | | | | PST | | results section. | + +--------+ + + + | COMPREHENSIVE | STAT | 05/13/2018 | | Results for this | | METABOLIC PANEL | | 10:20 AM | | procedure are in the | | | | PST | | results section. | + +--------+ + + + | ECG 12 LEAD | STAT | 05/13/2018 | | Results for this | | | | 10:10 AM | | procedure are in the | | | | PST | | results section. | + +--------+ + + + | ED INFORMATION | Routin | 05/13/2018 | | | | EXCHANGE | e | 10:01 AM | | | | | | PST | | | + +--------+ + + + +---+--------+ | | | | | Proced | | | ure | | | Note - | | | Louise, | | | Lab In | | | | | | Hlseve | | | n - | | | 02/06/ | | | 2019 | | | 10:02 | | | AM PST | | [...] | | | FICATI | | | ON?02/ | | | 06/201 | | | 9 | | | 10:00? | | | MCFADDEN, | | | KENNET | | | H | | | J?MRN: | | | | | | [id number] | | | [id number] | | | ecent | | | Change | | | s to | | | the | | | Rommel | | | Notifi | | | cation | | | The | | | format | | | of | | | your | | | Collec | | | tive | | | Notifi | | | cation | | | has | | | recent | | | ly | | | been | | | update | | | d. For | | | an | | | overvi | | | ew of | | | enhanc | | | ements | | | , | | | please | | | log | | | into | | | https: | | | //comm | | | unity. | | | collec | | | tiveme | | | dical. | | | com/t/ | | | [id number] | | | . For | | | questi | | | ons, | | | please | | | email | | | the | | | Collec | | | tive | | | Suppor | | | t Team | | | at | | | suppor | | | [email or web address] | | | ective | | | medica | | | [email or web address] | | | or | | | call | | | ([phone] | | | [phone] | | | 70.? | | | Criter | | | ia Met | | | 5 | | [...] | | Hospit | | | al 8 | | | Total | | | 8 | | | Note: | | | [...] | | int | | | Feb 6, | | | 2019 | | | [place] | | | [place] | | | [place] | | | [place] | | | [place] | | | Emerge | | | ncy | | | | | | Weakne | | | ss | | | Yaw 7, | | | 2019 | | [...] | | | [place] | | | Television News Producer | | | al | | | [...] | | | ent/e5 | | | [id number] | | | -[id number] | | | [...] | +---+--------+ documented in this encounter Results CT Head wo Contrast (05/13/2018 11:04 AM PST) + + | Specimen | + + | | + + + + + | Impressions | Performed At | + + + | IMPRESSION: 1. No acute intracranial process. 2. Mild volume loss. | [facility] | | 3. Mild white matter disease. 4. Stable cerebellar tonsillar | | | ectopia. 5. Stable remote right cerebellar lacunar infarct. 6. The | | | results of the study were discussed with MACARIO SIBLEY | | | at 11:51 Dictated by: Massimo Alba Electronically | | | Signed by: Massimo Alba on 05/13/2018 11:51 AM | | + + + + + + | Narrative | Performed At | + + + | EXAMINATION: CT HEAD WO CONTRAST HISTORY: Intermittent | [facility] | | episodes of altered mental status COMPARISON STUDY: March 16 | | | 2017 TECHNIQUE: 5 mm axial slices were acquired through the brain | | | without contrast. DOSE REPORT: CTDIvol: 40.4 mGy. DLP: 737 | | | mGy-cm. Automated exposure control was utilized. FINDINGS: No | | | evidence of an acute intracranial hemorrhage, mass lesion, or midline | | | shift. The reinoso-white matter interface is intact. The ventricles are | | | symmetric. Sulci are mildly prominent out of proportion to the | | | ventricles. Mild cerebellar volume loss. Remote right cerebellar | | | lacunar infarct, unchanged. Basilar cisterns are patent. White | | | matter is stable in appearance. No obvious vascular abnormality. | | | Paranasal sinuses and mastoid air cells are clear. No fracture. | | | Stable cerebellar tonsillar ectopia. | | + + + + + | Procedure Note | + + | Louise, Rad Results In - 05/13/2018 11:54 AM PST EXAMINATION: | | CT HEAD WO CONTRAST | | | | HISTORY: | | Intermittent episodes of altered mental status | | | | COMPARISON STUDY: | | March 16, 2018 | | | | TECHNIQUE: | | 5 mm axial slices were acquired through the brain without contrast. | | | | DOSE REPORT: | | CTDIvol: 40.4 mGy. DLP: 737 mGy-cm. Automated exposure control was utilized. | | | | FINDINGS: | | No evidence of an acute intracranial hemorrhage, mass lesion, or midline shift. | | The reinoso-white matter interface is intact. | | The ventricles are symmetric. | | Sulci are mildly prominent out of proportion to the ventricles. | | Mild cerebellar volume loss. | | Remote right cerebellar lacunar infarct, unchanged. | | Basilar cisterns are patent. | | White matter is stable in appearance. | | No obvious vascular abnormality. | | Paranasal sinuses and mastoid air cells are clear. | | No fracture. | | Stable cerebellar tonsillar ectopia. | | | | IMPRESSION: | | IMPRESSION: | | 1. No acute intracranial process. | | 2. Mild volume loss. | | 3. Mild white matter disease. | | 4. Stable cerebellar tonsillar ectopia. | | 5. Stable remote right cerebellar lacunar infarct. | | 6. The results of the study were discussed with MACARIO SIBLEY at 11:51 | | | | | | | | Dictated by: Massimo Alba | | | | | + + + +---------+ + + | Performing | Address | City/State/Zipcode | Phone Number | | Organization | | | | + +---------+ + + | [facility] | | | | + +---------+ + + Urinalysis with Microscopic with Culture if Indicated (05/13/2018 10:39 AM PST) + + + + + [...] - 1.030 | [place] | | | [place] | | | [facility] | | | [...] + + | [facility] | [address] | [place] [address] | [phone] | | [facility] | | | | + + + + + TSH, Reflex Free T4 (05/13/2018 10:20 AM PST) + +-------+ + + + | Component | Value | Ref Range | Performed | Pathologist | | | | | At | Signature | + +-------+ + + + | TSH | 1.74 | 0.36 - 3.74 | [facility] | [...] + + | [facility] | [address] | [place] [address] | [phone] | | [facility] | | | | + + + + + Lactic Acid (05/13/2018 10:20 AM PST) + +-------+ + + + | Component | Value | Ref Range | Performed | Pathologist | | | | | At | Signature | + +-------+ + + + | Lactate | 1.0 | 0.4 - 2.1 | [place] | [...] + + | [facility] | [address] | [place] [address] | [phone] | | [facility] | | | | + + + + + Magnesium (05/13/2018 10:20 AM PST) + +---------+ + + + [...] + + | [facility] | [address] | [place] [address] | [phone] | | [facility] | | | | + + + + + Troponin I (05/13/2018 10:20 AM PST) + +-------+ + + + [...] | cutoff point for the diagnosis of CA is 0.8 ng/mL for the Troponin I | | | method. | | + + + + + + + + | Performing | Address | City/State/Inscription House Health Centercode | Phone Number | | Organization | | | | + + + + + | [facility] | [address] | [place] [address] | [phone] | | [facility] | | | | + + + + + Comprehensive Metabolic Panel (05/13/2018 10:20 AM PST) + + + + + [...] + + + + | Glucose | 101 | 70 - 110 mg/dL | [place] [...] + + + + | Creatinine | 1.14 | 0.70 - 1.40 | [place] | | | | | mg/dL | [facility] | | | | | | [facility] | | | | | | LAB[facility]ATORY | | + + + + + + | eGFR if not | >60Comment: GLOMERULAR | >=60 | [place] | | | | FILTRATION | mL/min/1.73m2 | [facility] | | | [facility] [place] | RATE,ESTIMATED | | [facility] | | | | mL/min/1.00n9Qjha than | | LABORATORY | | | [...] + + + + | AST | 39 (H) | 0 - 38 U/L | [...] + + + + | Alkaline | 76 | 46 - 116 U/L | [place] | | | Phosphatase | | | [facility] | | | | | | [facility] | | | | | | LAB[facility]ATORY | | + + + + + + | Globulin | 3.6 | 2.4 - 4.5 g/dL | [place] [...] + + + + | BUN/Creatin | 19.3 | 7.0 - 24.0 | [place] | [...] + + | [facility] | [address] | [place] [address] | [phone] | | [facility] | | | | + + + + + CBC with Differential (05/13/2018 10:20 AM PST) + + + + + + | Component | Value | Ref Range | Performed | Pathologist | | | | | At | Signature | + + + + + + | WBC | 8.3 | 4.6 - 10.5 K/uL | [facility] | | | | | | [facility] | | | | | [facility] | | | | | | [facility] | | + + + + + + | RBC | 4.79 | 4.36 - 5.83 | [place] | [...] + + + + | Hematocrit | 43.5 | 39.0 - 51.9 % | [facility] | | | | | | [facility] | | | | [facility] | | | | | | [facility] | | + + + + + + | MCV | 90.8 | 82.0 - 96.0 fL | [place] [...] | MCHC | 33.1 | 32.0 - 36.9 | [place] | [...] + + | Platelet | 150 | 150 - 450 K/uL | [place] | | | Count | | | [facility] | | | | | [facility] | | | | | | LAB[facility]ORY | | + + + + + + | MPV | 12.2 | 9.4 - 12.4 fL | [facility] | | | | | | [facility] | | | | | | [facility] | | | | | | [facility] | | + + + + + + | % | 53.8 | 42.0 - 76.0 % | [place] | | | Neutrophils | | | [facility] | | | | | [facility] | | | | | | LAB[facility]ATORY | | + + + + + + | % | 20.9 | 20.0 - 40.0 % | [place] | | | Lymphocytes | | | [facility] | | | | [facility] | | | | | | [facility] | | + + + + + + | % Monocytes | 17.8 (H) | 3.0 - 13.0 % | [facility] | | | | | | [facility] | | | [facility] | | | | | | [facility] | | + + + + + + | % | 5.3 | 0.0 - 7.0 % | [place] [...] + + + + | Absolute | 4.45 | 2.80 - 7.70 | [place] | | | Neutrophils | | K/uL | [facility] | | | | | | LAB[facility]AT[facility] | | + + + + + + | Absolute | 1.73 | 1.20 - 3.30 | [place] | | | Lymphocytes | | K/uL | [facility] | [facility] | | | | | | [facility] | | + + + + + + | Absolute | 1.47 (H) | 0.00 - 0.80 | [place] | | | Monocytes | | K/uL | [facility] | | [facility] | [facility] | | | | | | LAB[facility]ATORY | | + + + + + + | Absolute | 0.44 | 0.00 - 0.70 | [facility] | [...] + + | [facility] | [address] | [place] [address] | [phone] | | [facility] | | | | + + + + + ECG 12 lead (05/13/2018 10:10 AM PST) + + | Specimen | + + | | + + + + + | Narrative | Performed At | + + + | Heart Rate: 60 | [facility] | | bpmQRS Interval: 108 msQT Interval: 400 msQTC Interval: 400 msP [place]: | [facility] | | 34 degQRS [place]: -28 degT Wave [place]: 19 degP-R Interval: 196 msec- | | | OTHERWISE NORMAL ECG -SINUS RHYTHM [Remains]BORDERLINE | | | INTRAVENTRICULAR CONDUCTION DELAY [Now Present]SIGNIFICANT ECG CONTOUR | | | CHANGES | | |T Wave [place]: 19 deg | | |P-R Interval: 196 msec | | |- OTHERWISE NORMAL ECG - | | |SINUS RHYTHM [Remains] | | |BORDERLINE INTRAVENTRICULAR CONDUCTION DELAY [Now Present] | | |SIGNIFICANT ECG CONTOUR CHANGES | | + + + + +---------+ + + | Performing | Address | City/State/Zipcode | Phone Number | | Organization | | | | + +---------+ + + | [facility] | | | | + +---------+ + + documented in this encounter Visit Diagnoses + + | Diagnosis | + + | TIA (transient ischemic attack) - Primary Unspecified transient cerebral ischemia | + + documented in this encounter
--- OUTSIDE RECORDS SUMMARY | ~2019-02-17 | XMS | Encounter Summary ---
Demographics + + + | Address | [address] | | | [place] [address] | + + + | Home Phone | | + + + | Preferred Language | Unknown | + + + | Marital Status | | + + + | Moravian Affiliation | 1025 | + + + | Race | Unknown | + + + | Ethnic Group | Unknown | + + + Author + + + | Author | [facility] | | | and [place] | + + + | Organization | [facility] | | | [...] Team Providers + +------+ + | Care Dual Hose Cementer Name | Role | Phone | + [...] Description | +--------+--------+ + + + | 09/19/ | Refill | [facility] | Horacio Silvestre, | Medication Refill | | 2017 | | [facility] | [address] [place] | | | | | [facility] [address] | [facility], [place] | | | | | [address] [place], | [address] | | | | | [place] [address] | [phone] | | | | | [phone] | | | +--------+--------+ + + + [...] [place] | | | | | | [address] | | | | | | [phone] | | | | | | | | +--------+---------+ + + + | 02/26/ | Office | Urology | Lillie Fowler | | | 2018 | Visit | | [address]IE [address] | | | | | | [address] | | | | | | [place], [place] | | | | | | [address] | | | | | | [phone] | | | | | | | | +--------+---------+ + + + | 03/16/ | Office | Neurology | Theresa, | | | 2018 | Visit | | [address] | | | | | [address] [place], | | | | | | [place] [address] | | | | | | [phone] | | | | | | | | +--------+---------+ + + + | 04/12/ | Office | Primary Care | Massimo Ramos | | | 2019 | Visit | | MD Fer [address] | | | | | | [place] | | | | | | [address] | | | | | | | | +--------+---------+ + + + | 10/03/ | Office | Neurology | Fabián Carias MD | | | 2019 | Visit | | [address] | | | | | | [place] | | | | | | [address] | | | | | | | [...] | | care | | | Energy Auditor-C | | | | | | | [...] | | care | | | Energy Auditor-C | | | | | | | [...] | | care | | | Energy Auditor-C | | | | | | | [...] | | care | | | Energy Auditor-C | | | | | | | linical | + +--------+ +---+-----+ + + + | Note: Pt will | | check CBG's daily x1 | | Pt will take Lantis as | | prescribed | + + documented as of this encounter Visit Diagnoses Not on filedocumented in this encounter"
--- OUTSIDE RECORDS SUMMARY | ~2019-02-17 | XMS | Encounter Summary ---
Demographics + + + | Address | [address] | | | [place] [address] | + + + | Home Phone [...] Providers + +------+ + | Care News Camera Operator Name | Role | Phone | + +------+ + | Ryan Gutiérrez MD | PCP | | + +------+ + Encounter Details +--------+ + + + + | Date | Type | Department | Care Team | Description | +--------+ + + + + | 01/31/ | [facility] | Horacio Silvestre, | | | 2016 | Encounter | HOSPITAL [facility] | DO [address] [place] | | | | | [address] [place] | [place], [place] | | | | | [place], [place] | [address] | | | | | [address] | [phone] | | | | | [phone] | | | +--------+ + + + [...] [place] | | | | | | [address] | | | | | | [phone] | | | | | | | | +--------+---------+ + + + | 02/26/ | Office | Urology | Lillie Fowler | | | 2018 | Visit | | [address]IE [address] | | | | | | [address] | | | | | | [place] | | | | | | [address] | | | | | | [phone] | | | | | | | | +--------+---------+ + + + | 03/16/ | Office | Neurology | Theresa, | | | 2018 | Visit | | [address] | | | | | [address] [place], | | | | | | [place] [address] | | | | | | [phone] | | | | | | | | +--------+---------+ + + + | 04/12/ | Office | Primary Care | Massimo Ramos | | | 2019 | Visit | | MD Fer [address] | | | | | | [place] | | | | | | [address] | | | | | | | | +--------+---------+ + + + | 10/03/ | Office | Neurology | Fabián Carias MD | | | 2019 | Visit | | [address] | | | | | | [place] | | | | | | [address] | | | | | | | [...] | | care | | | Airplane Dispatch Clerk-C | | | | | | [...] | | care | | | Airplane Dispatch Clerk-C | | | | | | [...] | | care | | | Airplane Dispatch Clerk-C | | | | | | [...] | | care | | | Airplane Dispatch Clerk-C | | | | | | [...] + | URIC ACID | Routin | 02/01/2016 | | Results for this | | | e | 10:37 AM | | procedure are in the | | | | PDT | | results section. | + +--------+ + + + documented in this encounter Results Uric Acid (02/01/2016 10:37 AM PDT) + +-------+ + + + | Component | Value | Ref Range | Performed | Pathologist | | | | | At | Signature | + +-------+ + + + | Uric Acid | 6.4 | 3.5 - 7.2 mg/dL | EXTERNAL | | | | [...]
--- OUTSIDE RECORDS SUMMARY | ~2019-02-17 | XMS | Encounter Summary ---
Demographics + + + | Address | [address] | | | [place] [address] | + + + | Home Phone [...] [facility] | | | and [...] Team Providers + +------+ + | Care Factory Maintenance Technician Name | Role | Phone [...] | | | | [place], [place] | [place] [address] | | | | | [address] | [phone] | | | | | [phone] | | | +--------+ + + + [...] [place] | | | | | | [address] | | | | | | [phone] | | | | | | | | +--------+---------+ + + + | 02/26/ | Office | Urology | Lillie Fowler | | | 2018 | Visit | | [address] | | | | | | [address] | | | | | | [place], [place] | | | | | | [address] | | | | | | [phone] | | | | | | | | +--------+---------+ + + + | 03/16/ | Office | Neurology | Theresa, | | | 2018 | Visit | | [address] | | | | | [address] [place], | | | | | | [place] [address] | | | | | | [phone] | | | | | | | | +--------+---------+ + + + | 04/12/ | Office | Primary Care | Massimo Ramos | | | 2019 | Visit | | MD Fer [address] | | | | | | [place] | | | | | | [address] | | | | | | | | +--------+---------+ + + + | 10/03/ | Office | Neurology | Fabián Carias MD | | | 2019 | Visit | | [address] | | | | | | [place] | | | | | | [address] | | | | | | | [...] | | care | | | Home Health Nurse-C | | | | | | [...] | | care | | | Home Health Nurse-C | | | | | | [...] | | care | | | Home Health Nurse-C | | | | | | [...] | | care | | | Home Health Nurse-C | | | | | | | linical | + +--------+ +---+-----+ + + + | Note: Pt will | | check CBG's daily x1 | | Pt will take Lantis as | | prescribed | + + documented as of this encounter Visit Diagnoses Not on filedocumented in this encounter"
--- OUTSIDE RECORDS SUMMARY | ~2019-02-17 | XMS | Encounter Summary ---
Demographics + + + | Address | [address] | | | [place] [address] | + + + | Home Phone [...] Team Providers + +------+ + | Care Wireline Field Operator Name | Role | Phone | [...] | | | [place], [place] | [place] [address] | | | | | [address] | [phone] | | | | | [phone] | | | +--------+ + + + [...] [place] | | | | | | [address] | | | | | | [phone] | | | | | | | | +--------+---------+ + + + | 02/26/ | Office | Urology | Lillie Fowler | | | 2018 | Visit | | [address] | | | | | | [address] | | | | | | [place], [place] | | | | | | [address] | | | | | | [phone] | | | | | | | | +--------+---------+ + + + | 03/16/ | Office | Neurology | Theresa, | | | 2018 | Visit | | [address] | | | | [address] [place], | | | | | | [place] [address] | | | | | | [phone] | | | | | | | | +--------+---------+ + + + | 04/12/ | Office | Primary Care | Massimo Ramos Pedro Luis | | | 2019 | Visit | | MD Fer [address] | | | | | | [address] [place] | | | | | | [address] | | | | | | | | +--------+---------+ + + + | 10/03/ | Office | Neurology | Fabián Carias MD | | | 2019 | Visit | | [address] | | | | | | [place] | | | | | | [address] | | | | | | | [...] | | | care | | | [facility] | | | | | | [...] | | | care | | | [facility] | | | | | | [...] | | | care | | | [facility] | | | | | | [...] | | | care | | | [facility] | | | | | | | linical | + +--------+ +---+-----+ + + + | Note: Pt will | | check CBG's daily x1 | | Pt will take [place] as | | prescribed | + + documented as of this encounter Visit Diagnoses Not on filedocumented in this encounter"
--- OUTSIDE RECORDS SUMMARY | ~2019-02-17 | XMS | Encounter Summary ---
Demographics + + + | Address | [address] | | | [place] [address] | + + + | Home Phone [...] Providers + +------+ + | Care Gas Pipe Layer Name | Role | Phone | [...] | | | [facility] | Blast Furnace Helper-Clinical | | | | | [address] [facility] [place], | | | | | | [place] [address] | | | | | | [phone] | | | +--------+ + + + [...] [place] | | | | | | [address] | | | | | | [phone] | | | | | | | | +--------+---------+ + + + | 02/26/ | Office | Urology | Lillie Fowler | | | 2018 | Visit | | LILLIE [address] | | | | | | [address] | | | | | | [place], [place] | | | | | | [address] | | | | | | [phone] | | | | | | | | +--------+---------+ + + + | 03/16/ | Office | Neurology | Theresa, | | | 2018 | Visit | | [address] | | | | | | [address] [place], | | | | | | [place] [address] | | | | | | [phone] | | | | | | | | +--------+---------+ + + + | 04/12/ | Office | Primary Care | Massimo Ramos | | | 2019 | Visit | | [facility] [address] | | | | | | [place] | | | | | | [address] | | | | | | | | +--------+---------+ + + + | 10/03/ | Office | Neurology | Fabián Carias MD | | | 2019 | Visit | | [address] | | | | | | [place] | | | | | | [address] | | | | | | | [...] | | | care | | | Blast Furnace Helper-C | | | | | | [...] | | | care | | | Blast Furnace Helper-C | | | | | | [...] | | | care | | | Blast Furnace Helper-C | | | | | | [...] | | | care | | | Blast Furnace Helper-C | | | | | | [...]
--- OUTSIDE RECORDS SUMMARY | ~2019-02-17 | XMS | Encounter Summary ---
Demographics + + + | Address | [address] | | | [place] [address] | + + + | Home Phone [...] Team Providers + +------+ + | Care Pulp Roller Name | Role | Phone | + [...] | | [address] [place], | [address] | | | | | [place] [address] | [phone] | | | | | [phone] | | | +--------+ + + + [...] [place] | | | | | | [address] | | | | | | [phone] | | | | | | | | +--------+---------+ + + + | 02/26/ | Office | Urology | Lillie Fowler | | | 2018 | Visit | | [address] | | | | | | [address] | | | | | | [place] | | | | | | [address] | | | | | | [phone] | | | | | | | | +--------+---------+ + + + | 03/16/ | Office | Neurology | Theresa, | | | 2018 | Visit | | [address] | | | | | | [address] [place], | | | | | | [place] [address] | | | | | | [phone] | | | | | | | | +--------+---------+ + + + | 04/12/ | Office | Primary Care | Massimo Ramos | | | 2019 | Visit | | MD [facility] [address] | | | | | | [address] [place] | | | | | | [address] | | | | | | | | +--------+---------+ + + + | 10/03/ | Office | Neurology | Fabián Carias MD | | | 2019 | Visit | | [address] | | | | | | [place] | | | | | | [address] | | | | | | | [...] | | | care | | | Pin Sticker-C | | | | | | | [...] | | | care | | | Pin Sticker-C | | | | | | | [...] | | | care | | | Pin Sticker-C | | | | | | | [...] | | | care | | | Pin Sticker-C | | | | | | | linical | + +--------+ +---+-----+ + + + | Note: Pt will | | check CBG's daily x1 | | Pt will take Lantis as | | prescribed | + + documented as of this encounter Visit Diagnoses Not on filedocumented in this encounter"
--- OUTSIDE RECORDS SUMMARY | ~2019-02-17 | XMS | Encounter Summary ---
Demographics + + + | Address | [address] | | | [place] [address] | + + + | Home Phone [...] Team Providers + +------+ + | Care Product Manager E Commerce Name | Role | Phone | + [...] | | | | [place], [place] | [address] | | | | | [address] | [phone] | | | | | [phone] | | | +--------+ + + + [...] [place] | | | | | | [address] | | | | | | [phone] | | | | | | | | +--------+---------+ + + + | 02/26/ | Office | Urology | Lillie Fowler | | | 2018 | Visit | | [address]IE [address] | | | | | | [address] | | | | | | [place] | | | | | | [address] | | | | | | [phone] | | | | | | | | +--------+---------+ + + + | 03/16/ | Office | Neurology | Theresa, | | | 2018 | Visit | | [address] | | | | | | [address] [place], | | | | | | [place] [address] | | | | | | [phone] | | | | | | | | +--------+---------+ + + + | 04/12/ | Office | Primary Care | Massimo Ramos | | | 2019 | Visit | | [facility] [address] | | | | | | [place] | | | | | | [address] | | | | | | | | +--------+---------+ + + + | 10/03/ | Office | Neurology | Fabián Carias MD | | | 2019 | Visit | | [address] | | | | | | [place] | | | | | | [address] | | | | | | | [...] | | | care | | | Linseed Oil Temperer-C | | | | | | | [...] | | | care | | | Linseed Oil Temperer-C | | | | | | | [...] | | | care | | | Linseed Oil Temperer-C | | | | | | | [...] | | | care | | | Linseed Oil Temperer-C | | | | | | | [...]
--- OUTSIDE RECORDS SUMMARY | ~2019-02-17 | XMS | Encounter Summary ---
Demographics + + + | Address | [address] | | | [place] [address] | + + + | Home Phone [...] Team Providers + +------+ + | Care Pie Baker Name | Role | Phone | + +------+ + | Ryan Gutiérrez MD | PCP | | + +------+ + Encounter Details +--------+ + + + + | Date | Type | Department | Care Team | Description | +--------+ + + + + | 02/13/ | Hospital | [facility] | Ella Cabrera, | | | 2016 | Encounter | [facility] | VIDEO NETWORK ENGINEER [address] | | | | | CENTER [address] | [place] | | | | | [place] | [address] | | | | | [address] | | | | | | [phone] | | | +--------+ + + + [...] DR | | | | | | [place] | | | | | | [address] | | | | | | [phone] | | | | | | | | +--------+---------+ + + + | 02/26/ | Office | Urology | Lillie Fowler | | | 2018 | Visit | | [address] | | | | | | [address] | | | | | | [place] | | | | | | [address] | | | | | | [phone] | | | | | | | | +--------+---------+ + + + | 03/16/ | Office | Neurology | Theresa, | | | 2018 | Visit | | [address] | | | | | | [address] [place], | | | | | | [place] [address] | | | | | | [phone] | | | | | | | | +--------+---------+ + + + | 04/12/ | Office | Primary Care | Massimo Ramos | | | 2019 | Visit | | MD [facility] [address] | | | | | | [place] | | | | | | [address] | | | | | | | | +--------+---------+ + + + | 10/03/ | Office | Neurology | Fabián Carias MD | | | 2019 | Visit | | [address] | | | | | | [place] | | | | | | [address] | | | | | | | [...] | | | care | | | Stem Roller Operator-C | | | | | | [...] | | | care | | | Stem Roller Operator-C | | | | | | [...] | | | care | | | Stem Roller Operator-C | | | | | | [...] | | | care | | | Stem Roller Operator-C | | | | | | [...] + +--------+ + + + | XR KNEE RIGHT 3 VW | Routin | 02/14/2016 | | Results for this | | | e | 12:23 PM | | procedure are in the | | | | PST | | results section. | + +--------+ + + + documented in this encounter Results XR Knee Right 3 Vw (02/14/2016 12:23 PM PST) + + | Specimen | + + | | + + + + + | Narrative | Performed At | + + + | ORIGINAL FOUR VIEWS OF THE RIGHT KNEE: HISTORY: | | | Fell on knee. Pain. FINDINGS: Prominent prepatellar soft-tissue | | | swelling. No joint effusion, no evidence of acute fracture or | | | subluxation. IMPRESSION: Prepatellar soft-tissue swelling. | | | Query bursitis. Read By: | | | Released By: MASSIMO NUNEZ MD Date: 02/15/2016 11:25 AM | | + + + + + | Procedure Note | + + | Adithya Mcneill Results In - 02/13/2017 12:01 AM PST ORIGINAL FOUR VIEWS OF THE RIGHT | | KNEE: HISTORY:Fell on knee. Pain. FINDINGS:Prominent prepatellar soft-tissue swelling. | | No joint effusion, no evidence of acute fracture or subluxation. | | IMPRESSION:Prepatellar soft-tissue swelling. Query bursitis. Job #: | | [id number] Read By: Released By: MASSIMO NUNEZ MD Date: 02/15/2016 11:25 AM | |HISTORY: | |Fell on knee. Pain. | | | |FINDINGS: | |Prominent prepatellar soft-tissue swelling. No joint effusion, no evidence of acute fractu re or subluxation. | | | |IMPRESSION: | |Prepatellar soft-tissue swelling. Query bursitis. | | | | | | | | | |Read By: | | | |Released By: MASSIMO NUNEZ MD | | | |Date: 02/15/2016 11:25 AM | | | + + documented in this encounter Visit Diagnoses Not on filedocumented in this encounter"
--- OUTSIDE RECORDS SUMMARY | ~2019-02-17 | XMS | Encounter Summary ---
Demographics + + + | Address | [address] | | | [place] [address] | + + + | Home Phone [...] Team Providers + +------+ + | Care Museum Exhibit Designer Name | Role | Phone [...] | Respiratory | | | | | [phone] | [address] | Therapy [address] | | | | | good through | [address], | [address] [place] | | | | | 01/19/19 | [address] | [place], [place] | | | | | Procedures | [place], [place] | [address] | | | | | CC EEG | [address] | Phone: | | | | | | Phone: | [phone] | | | | | | [phone] | Fax: | | | | | | Fax: | [phone] | | | | | | [phone] | | +--------+--------+ + + + + [...] | | | [place] | [address] | | | | | [address] | | | | | | [phone] | | | +--------+ + + + [...] [place] | | | | | | [address] | | | | | | [phone] | | | | | | | | +--------+---------+ + + + | 02/26/ | Office | Urology | Lillie Fowler | | | 2018 | Visit | | [address] | | | | | | [address] | | | | | | [place], [place] | | | | | | [address] | | | | | | [phone] | | | | | | | | +--------+---------+ + + + | 03/16/ | Office | Neurology | Theresa, | | | 2018 | Visit | | [address] | | | | | | [address] [place], | | | | | | [place] [address] | | | | | | [phone] | | | | | | | | +--------+---------+ + + + | 04/12/ | Office | Primary Care | Massimo Ramos | | | 2019 | Visit | | MD [address] | | | | | | [place] | | | | | | [address] | | | | | | | | +--------+---------+ + + + | 10/03/ | Office | Neurology | Fabián Carias MD | | | 2019 | Visit | | [address] | | | | | | [place] | | | | | | [address] | | | | | | | [...] | | | care | | | Conformal Pad Former-C | | | | | | | [...] | | | care | | | Conformal Pad Former-C | | | | | | | [...] | | | care | | | Conformal Pad Former-C | | | | | | | [...] | | | care | | | Conformal Pad Former-C | | | | | | | [...]
--- OUTSIDE RECORDS SUMMARY | ~2019-02-17 | XMS | Encounter Summary ---
Demographics + + + | Address | [address] | | | [place] [address] | + + + | Home Phone [...] Team Providers + +------+ + | Care School Manager Name | Role | Phone | [...] | | | CENTER [address] | [facility] | | | | | DR [place], [place] | [place] [address] | | | | | [address] | [phone] | | | | | [phone] | | | +--------+ + + + [...] [place] | | | | | | [address] | | | | | | [phone] | | | | | | | | +--------+---------+ + + + | 02/26/ | Office | Urology | Lillie Fowler | | | 2018 | Visit | | [address] | | | | | | [address] | | | | | | [place] | | | | | | [address] | | | | | | [phone] | | | | | | | | +--------+---------+ + + + | 03/16/ | Office | Neurology | Theresa, | | | 2018 | Visit | | [address] | | | | | | [address] [place], | | | | | | [place] [address] | | | | | | [phone] | | | | | | | | +--------+---------+ + + + | 04/12/ | Office | Primary Care | Massimo Ramos | | | 2019 | Visit | | MD [facility] [address] | | | | | | [place] | | | | | | [address] | | | | | | | | +--------+---------+ + + + | 10/03/ | Office | Neurology | Fabián Carias MD | | | 2019 | Visit | | [address] | | | | | | [place] | | | | | | [address] | | | | | | | [...] care | | | Associate Professor Of Kinesiology-C | | | | | | | [...] care | | | Associate Professor Of Kinesiology-C | | | | | | | [...] care | | | Associate Professor Of Kinesiology-C | | | | | | | [...] care | | | Associate Professor Of Kinesiology-C | | | | | | | [...] 3. Mild paranasal sinus disease. JOB #: [id number] Digitally | | | Released by: Drew [...] | | | | | JOB #: [id number] | | Digitally Released by: Drew Lawrence [...] | | | 2. Cardiomegaly. JOB #: [id number] Digitally Released by: Howard | | | [...] | | | | | JOB #: [id number] | | Digitally Released by: Drew Lawrence | | | | | | Read By: DREW LAWRENCE MD | | Date: 10/22/2016 13:05 | | | + + documented in this encounter Visit Diagnoses Not on filedocumented in this encounter"
--- OUTSIDE RECORDS SUMMARY | ~2019-02-17 | XMS | Encounter Summary ---
Demographics + + + | Address | [address] | | | [place] [address] | + + + | Home Phone [...] Providers + +------+ + | Care Lead Pourer Name | Role | Phone | + [...] | | unspecified | [place], [place] | [address] Phone: | | | | | back pain | [address] | [phone] | | | | | laterality | Phone: | Fax: | | | | | Other | [phone] | [phone] | | | | | amnesia | Fax: | | | | | | Procedures | [phone] | | | | | | PA INJECT | | | | | | [...] [address] | | | | | [place] [address] | | | | | | [phone] | | | +--------+ + + + [...] [place] | | | | | | [address] | | | | | | [phone] | | | | | | | | +--------+---------+ + + + | 02/26/ | Office | Urology | Lillie Fowler | | | 2018 | Visit | | [address] | | | | | | [address] | | | | | | [place], [place] | | | | | | [address] | | | | | | [phone] | | | | | | | | +--------+---------+ + + + | 03/16/ | Office | Neurology | Theresa, | | | 2018 | Visit | | [address] | | | | | | [address] [place], | | | | | | [place] [address] | | | | | | [phone] | | | | | | | | +--------+---------+ + + + | 04/12/ | Office | Primary Care | Massimo Ramos | | | 2019 | Visit | | MD [address] | | | | | | [place] | | | | | | [address] | | | | | | | | +--------+---------+ + + + | 10/03/ | Office | Neurology | Fabián Carias MD | | | 2019 | Visit | | [address] | | | | | | [place] | | | | | | [address] | | | | | | | [...] | | care | | | Supervisor Powdered Sugar-C | | | | | | | [...] | | care | | | Supervisor Powdered Sugar-C | | | | | | | [...] | | care | | | Supervisor Powdered Sugar-C | | | | | | | [...] | | care | | | Supervisor Powdered Sugar-C | | | | | | | [...]
--- OUTSIDE RECORDS SUMMARY | ~2019-02-17 | XMS | Encounter Summary ---
Demographics + + + | Address | [address] | | | [place] [address] | + + + | Home Phone [...] Providers + +------+ + | Care Box Maker Wood Name | Role | Phone | + +------+ + | Horacio Silvestre DO | PCP | | + +------+ + Reason for Visit + + + | Reason | Comments | + + + | Vomiting | | + + + | Nausea | | + + + Encounter Details +--------+ + + + + | Date | Type | Department | Care Team | Description | +--------+ + + + + | 08/19/ | Emergency | [facility] | Juan Williamson | Drug-induced nausea | | 2017 | | [facility] | MD [address] | and vomiting | | | | CENTER [address] | [facility] | (Primary Dx) | | | | DR [place], [place] | [place], [place] [address] | | | | | [address] | [phone] | | | | | [phone] | | | +--------+ + + + [...] + + + | Blood Pressure | 179/98 | 08/19/2017 6:32 PM | | | | | PDT | | + + + + + | Pulse | 69 | 08/19/2017 7:00 PM | | | | | PDT | | + + + + + | Temperature | 36.3 C (97.3 F) | 08/19/2017 2:40 PM | | | | | PDT | | + + + + + | Respiratory Rate | 18 | 08/19/2017 2:40 PM | | | | | PDT | | + + + + + | Oxygen Saturation | 96% | 08/19/2017 7:00 PM | | | | | PDT | | + + + + + | Inhaled Oxygen | - | - | | | Concentration | | | | + + + + + | Weight | 95.3 kg (210 lb) | 08/19/2017 2:40 PM | | | | | PDT | | + + + + + | Height | 167.6 cm (5' 6") | 08/19/2017 2:40 PM | | | | | PDT | | + + + + + | Body Mass Index | 33.89 | 08/19/2017 2:40 PM | | | [...] documented as of this encounter Discharge Instructions Juan Moreau MD - 08/19/2017Keep your follow-up appointments as pre viously instructed at the time of your discharge 3 days ago. Discontinue years Zithromax. Continue your Ceftin or starting tomorrow night. documented in this encounter Medications at Time [...] | | | | | | disease, joint terminal attack controller | | | | | | | [...] | | | | | | [place] | | | | | | [address] | | | | | | [phone] | | | | | | | | +--------+---------+ + + + | 02/26/ | Office | Urology | Lillie Fowler | | | 2018 | Visit | | [address]IE Lopez [address] | | | | | | [address] | | | | | | [place] | | | | | | [address] | | | | | | [phone] | | | | | | | | +--------+---------+ + + + | 03/16/ | Office | Neurology | Theresa, | | | 2018 | Visit | | [address] | | | | | [address] [place], | | | | | | [place] [address] | | | | | | [phone] | | | | | | | | +--------+---------+ + + + | 04/12/ | Office | Primary Care | Massimo Ramos | | | 2019 | Visit | | MD Fer [address] | | | | | | [place] | | | | | | [address] | | | | | | | | +--------+---------+ + + + | 10/03/ | Office | Neurology | Fabián Carias MD | | | 2019 | Visit | | [address] | | | | | | [place] | | | | | | [address] | | | | | | | | +--------+---------+ + + + + +------+--------+ + + | Name | Type | Priori | Associated Diagnoses | Date/Time | | | | ty | | | + +------+--------+ + + | ED INFORMATION | BRIT | Routin | | 08/19/2017 2:31 PM | | EXCHANGE | | e [...] | | | care | | | Riding Teacher-C | | | | | | [...] | | | care | | | Riding Teacher-C | | | | | | [...] | | | care | | | Riding Teacher-C | | | | | | [...] | | | care | | | Riding Teacher-C | | | | | | [...] XR CHEST PA AND | STAT | 08/19/2017 | | Results for this | | LATERAL | | 5:39 PM | | procedure are in the | | | | PDT | | results section. | + +--------+ + + + | CBC WITH | STAT | 08/19/2017 | | Results for this | | DIFFERENTIAL | | 3:10 PM | | procedure are in the | | | | PDT | | results section. | + +--------+ + + + | COMPREHENSIVE | STAT | 08/19/2017 | | Results for this | | METABOLIC PANEL | | 3:10 PM | | procedure are in the | | | | PDT | | results section. | + +--------+ + + + | ED INFORMATION | Routin | 08/19/2017 | | | | EXCHANGE | e | 2:31 PM | | | | | | PDT | | | + +--------+ + + + +---+--------+ | | | | | Proced | | | ure | | | Note - | | | Randa, | | | Lab In | | | | | | Hlseve | | | n - | | | 08/19/ | | | 2017 | | | 2:32 | | | PM PDT | | [...] | | | ON?/ | | | 15 | | | 8 | | | 14:30? | | | MCFADDEN, | | | KENNET | | | H | | | J?MRN: | | | | | | [id number] | | | [id number] | | | ecurit | | | [...] | | | D.O. | | | Indivi | | | dual | | | or | | | Groups | | | (of | | | Indivi | | | duals) | | | (269) | | | | | | [phone] | | | 16 | | | (269) | | | [phone] | | | 70 | | | Curren | | | [...] | | | ng | | | May | | | [...] | | | Report | | | Unable | | | to | | | query | | | PDMP.T | | | he | | | above | | | [...] | +---+--------+ documented in this encounter Results XR Chest PA and Lateral (08/19/2017 5:39 PM PDT) + + | Specimen | + + | | + + + + + | Impressions | Performed At | + + + | IMPRESSION: No acute cardiopulmonary process. Dictated by: | [facility] | | Troy Lawrence Electronically Signed by: Troy Lawrence on | | | 08/20/2017 6:33 AM | | + + + + + + | Narrative | Performed At | + + + | EXAMINATION: XR CHEST PA AND LATERAL HISTORY: VOMITING; NAUSEA | [facility] | | COMPARISON STUDY: 08/15/2017. 07/05/2017. CT chest abdomen | | | pelvis 12/25/2016. FINDINGS: The lungs are well ventilated. No | | | pleural effusion. No pneumothorax. Cardiomediastinal silhouette is | | | normal. No acute osseous process. Mild endplate degenerative | | | changes are present mid lower thorax. Surgical clips noted related | | | to gallbladder rim. | | + + + + + | Procedure Note | + + | Randa, Rad Results In - 08/20/2017 6:37 AM PDT EXAMINATION:XR CHEST PA AND | | LATERALHISTORY:VOMITING; NAUSEACOMPARISON STUDY:08/15/2017. 07/05/2017. CT chest | | abdomen pelvis 12/25/2016.FINDINGS:The lungs are well ventilated. No pleural effusion. | | No pneumothorax. Cardiomediastinal silhouette is normal. No acute osseous process. | | Mild endplate degenerative changes are present mid lower thorax. Surgical clips noted | | related to gallbladder rim.IMPRESSION: IMPRESSION:No acute cardiopulmonary | | process.Dictated by: Troy Lawrence | | 6:33 AM | | | |FINDINGS: | |The lungs are well ventilated. No pleural effusion. No pneumothorax. Cardiomediastinal s ilhouette is normal. No acute osseous process. Mild endplate degenerative changes are pres ent mid lower thorax. Surgical | |clips noted related to gallbladder rim. | | | |IMPRESSION: | |IMPRESSION: | |No acute cardiopulmonary process. | | | |Dictated by: Troy Lawrence | | | | | + + + +---------+ + + | Performing | Address | City/State/Zipcode | Phone Number | | Organization | | | | + +---------+ + + | [facility] | | | | + +---------+ + + Comprehensive Metabolic Panel (08/19/2017 3:10 PM PDT) + + + + + + | Component | Value | Ref Range | Performed | Pathologist | | | | | At | Signature | + + + + + + | Na | 139 [...] + + + + | Glucose | 120 [...] + + + + | Creatinine | 1.07 | 0.70 - 1.40 | [facility] | | | | | mg/dL | [facility] | [facility] | | | | | | [facility]ORATORY | | + + + + + + | eGFR if not | >60Comment: GLOMERULAR | >=60 | [facility] | | | | FILTRATION | mL/min/1.73m2 | [facility] | | | CYMRO | RATE,ESTIMATED | | [facility]OSPITAL | | | | mL/min/1.21s8Fsko than | | LABORATORY | | | [...] + + + + | Albumin | 4.2 | 3.0 - 4.5 g/dL | [facility] [...] AST | 48 (H) | 0 - 38 U/L | [facility] | | | | | [facility] | [facility] | | | | | | [facility]ATORY | | + + + + + + | ALT | 61 | 16 - 63 U/L | [facility] [...] + + + + | Globulin | 4.5 | g/dL | [facility] | | | | | | [facility] | | | | | | LABORATORY | | + + + + + + | Albumin/Lizbeth | 0.9 | | [facility] | | | bulin Ratio | | | [facility] | | [facility] | | | | | | LABORATORY | | + + + + + + | BUN/Creatin | 14.0 | 7.0 - 24.0 | [facility] | [...] + + | [facility] | [address] | [place] [address] | [phone] | | HOSPITAL [facility]ORY | | | | + + + + + CBC with Differential (08/19/2017 3:10 PM PDT) + + + + + + | Component | Value | Ref Range | Performed | Pathologist | | | | | At | Signature | + + + + + + | WBC | 9.9 | 4.6 - 10.5 K/uL | [facility] | | | | | [facility] | | | | | | [facility] | | + + + + + + | RBC | 4.71 | 4.36 - 5.83 | [facility] | | | | | M/uL | [facility] | | | | | | LAB[facility]ATORY | | + + + + + + | Hemoglobin | 14.3 | 13.1 - 17.4 | [facility] | | | | | g/dL | [facility] | | | | | | LAB[facility]ATORY | | + + + + + + | Hct | 42.3 | 39.0 - 51.9 % | [facility] [...] + + + + | MCHC | 33.8 | 32.0 - 36.9 | [facility] | | | | | g/dL | [facility] | | | | | | [facility] | | + + + + + + | RDW-CV | 15.0 | 0.0 - 17.0 % | [facility] | | | | | | [facility] | | | | | | [facility]AT[facility] | | + + + + + + | Platelet | 173 | 150 - 450 K/uL | [facility] [...] + + + + | % | 74.0 | 42.0 - 76.0 % | [facility] | | | Neutrophils | | | [facility] | | | | | | LAB[facility]ATORY | | + + + + + + | % | 10.9 (L) | 20.0 - 40.0 % | [facility] | | | Lymphocytes | | | [facility] | [facility] | | | | | | LAB[facility]ATORY | | + + + + + + | % Monocytes | 12.2 (H) | 0.0 - 12.0 % | [...] + + + + | Absolute | 7.35 | 2.80 - 7.70 | [facility] | | | Neutrophils | | K/uL | [facility] | | | | | | [facility]AT[facility] | | + + + + + + | Absolute | 1.08 (L) | 1.20 - 3.30 | [facility] | | | Lymphocytes | | K/uL | [facility] | | | | | | [facility]ATORY | | + + + + + + | Absolute | 1.21 | 0.00 - 1.60 | [facility] | | | Monocytes | | K/uL | [facility] | | | | | | LAB[facility]ATORY | | + + + + + + | Absolute | 0.05 | 0.00 - 0.70 | [facility] | [...] Absolute | 0.17 (H) | 0.00 - 0.15 | [facility] [...] + + | [facility] | [address] | [place] [address] | [phone] | | [facility]PITAL [facility] | | | | + + + + + documented in this encounter Visit Diagnoses + + | Diagnosis | + + | Drug-induced nausea and vomiting - Primary Nausea with vomiting | + + documented in this encounter Administered Medications + +---------+ +--------+-------+------+ | Medication Order | MAR | Action | Dose | Rate | Site | | | Action | Date | | | | + +---------+ +--------+-------+------+ | azithromycin (ZITHROMAX) 500 mg | New Bag | 08/20/19 | 500 mg | 250 | | | in sodium chloride 0.9% 250 mL | | 18 8:03 | | mL/hr | | | IVPB 500 mg, Intravenous, | | PM PDT | | | | | Administer over 60 Minutes, ONCE, | | | | | | | 08/19/17 at 2015, For 1 dose, | | | | | | | Activate system and mix before | | | | | | | use., Indications: Community | | | | | | | Acquired Pneumonia | | | | | | + +---------+ +--------+-------+------+ +---+---+ | | | +---+---+ + +-------+ +-----+---+---+ | cefTRIAXone (ROCEPHIN) | Given | 08/20/19 | 1 g | | | | injection 1 g 1 g, Intravenous, | | 18 8:02 | | | | | ONCE, 08/19/17 at 2014, For 1 | | PM PDT | | | | | dose, Indications: Community | | | | | | | Acquired Pneumonia | | | | | | + +-------+ +-----+---+---+ +---+---+ | | | +---+---+ + + + +------+---+---+ | ondansetron (ZOFRAN ODT) | Dispense | 08/20/19 | 4 mg | | | | disintegrating tablet (ED | to Home | 18 9:36 | | | | | homepack) 4 mg 4 mg, Oral, EVERY | | PM PDT | | | | | 6 HOURS PRN, Nausea, Starting | | | | | | | 08/19/17 at 2112, Dispense for | | | | | | | home use., | | | | | | + + + +------+---+---+ +---+---+ | | | +---+---+ + +-------+ +------+---+---+ | ondansetron (ZOFRAN) injection | Given | 08/20/19 | 4 mg | | | | 4 mg 4 mg, Intravenous, EVERY 1 | | 18 8:32 | | | | | HOUR PRN, Nausea, Vomiting, | | PM PDT | | | | | Starting 08/19/17 at 1504, For | | | | | | | 2 doses | | | | | | + +-------+ +------+---+---+ +-------+ +------+---+---+ | Given | 08/20/19 | 4 mg | | | | | 18 3:21 | | | | | | PM PDT | | | | +-------+ +------+---+---+ +---+---+ | | | +---+---+ + +-------+ +---------+---+---+ | oxyCODONE-acetaminophen | Given | 08/20/19 | 2 | | | | (PERCOCET) 5-325 mg per tablet 2 | | 18 8:27 | tablets | | | | tablet 2 tablet, Oral, ONCE, Tue | | PM PDT | | | | | 08/19/17 at 2030, For 1 dose | | | | | | + +-------+ +---------+---+---+ +---+---+ | | | +---+---+ + +---------+ +--------+-------+---+ | sodium chloride 0.9% (NS) bolus | New Bag | 08/20/19 | 2,000 | 4000 | | | 2,000 mL 2,000 mL, Intravenous, | | 18 3:21 | mLs | mL/hr | | | Administer over 30 Minutes, | | PM PDT | | | | | ONCE, 08/19/17 at 1530, For 1 | | | | | | | dose | | | | | | + +---------+ +--------+-------+---+ +---+---+ | | | +---+---+ documented in this encounter
--- OUTSIDE RECORDS SUMMARY | ~2019-02-17 | XMS | Encounter Summary ---
Demographics + + + | Address | [address] | | | [place] [address] | + + + | Home Phone [...] Team Providers + +------+ + | Care Process Steward Name | Role | Phone | + +------+ + | Massimo Ramos MD | PCP | | + +------+ + Reason for Visit +--------+ + | Reason | Comments | +--------+ + | Triage | sent to ER | +--------+ + Encounter Details +--------+ + + + + | Date | Type | Department | Care Team | Description | +--------+ + + + + | 01/12/ | Telephone | [facility] | Cara Campbell RN | Triage (sent to ER) | | 2019 | | [facility] | | | | | | CLINIC [address] | | | | | | [address] [place], | | | | | | [place] [address] | | | | | | [phone] | | | +--------+ + + + [...] [place] | | | | | | [address] | | | | | | [phone] | | | | | | | | +--------+---------+ + + + | 02/26/ | Office | Urology | Lillie Fowler | | | 2018 | Visit | | [address]IE [address] | | | | | | [address] | | | | | | [place], [place] | | | | | | [address] | | | | | | [phone] | | | | | | | | +--------+---------+ + + + | 03/16/ | Office | Neurology | Theresa, | | | 2018 | Visit | | [address] | | | | | [address] [place], | | | | | | [place] [address] | | | | | | [phone] | | | | | | | | +--------+---------+ + + + | 04/12/ | Office | Primary Care | Massimo Ramos | | | 2019 | Visit | | MD Fer [address] | | | | | | [place] | | | | | | [address] | | | | | | | | +--------+---------+ + + + | 10/03/ | Office | Neurology | Fabián Carias MD | | | 2019 | Visit | | [address] | | | | | | [place] | | | | | | [address] | | | | | | | [...] | | care | | | Senior Drupal Developer-C | | | | | | [...] | | care | | | Senior Drupal Developer-C | | | | | | [...] | | care | | | Senior Drupal Developer-C | | | | | | [...] | | care | | | Senior Drupal Developer-C | | | | | | [...]
--- OUTSIDE RECORDS SUMMARY | ~2019-02-17 | XMS | Encounter Summary ---
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 [address] [place] [address]. All righ ts reserved. This information is [...] in Major discrepancies noted: None Please see PROFESSOR OF MANAGEMENT med list for updated medication list. Electronically [...] [place] | | | | | | [address] | | | | | | [phone] | | | | | | | | +--------+---------+ + + + | 02/26/ | Office | Urology | Lillie Fowler | | | 2018 | Visit | | [address] | | | | | | [place], [place] | | | | | | [address] | | | | | | [phone] | | | | | | | | +--------+---------+ + + + | 03/16/ | Office | Neurology | Theresa, | | | 2018 | Visit | | [address] | | | | | [address] [place], | | | | | | [place] [address] | | | | | | [phone] | | | | | | | | +--------+---------+ + + + | 04/12/ | Office | Primary Care | Massimo Ramos | | | 2019 | Visit | | MD Fer [address] | | | | | | [place] | | | | | | [address] | | | | | | | | +--------+---------+ + + + | 10/03/ | Office | Neurology | Fabián Carias MD | | | 2020 | Visit | | [address] | | | | | | [place] | | | | | | [address] | | | | | | | [...] | | | care | | | Communication Specialist-C | | | | | | [...] | | | care | | | Communication Specialist-C | | | | | | [...] | | | care | | | Communication Specialist-C | | | | | | [...] | | | care | | | Communication Specialist-C | | | | | | [...] + + | [facility] | [address] | [place] [address] | [phone] | | HOSPITAL [facility] | | | [...] + + | [facility] | [address] | [place] [address] | [phone] | | HOSPITAL [facility] | | | [...] (L) | 20.0 - 40.0 % | [facility] | | | Lymphocytes | | | [...] + + | [facility] | [address] | [place] [address] | [phone] | | HOSPITAL [facility] | | | [...] + + | [facility] | [address] | [place] [address] | [phone] | | HOSPITAL [facility] | | | [...] + + | [facility] | [address] | [place] [address] | [phone] | | HOSPITAL [facility] | | | [...] + + | [facility] | [address] | [place] [address] | [phone] | | HOSPITAL [facility] | | | [...] - 1.030 | [facility] | | | [place] | | | [facility] | | | [...] + + | [facility] | [address] | [place] [address] | [phone] | | HOSPITAL [facility] | | | [...] + + | [facility] | [address] | [place] [address] | [phone] | | HOSPITAL [facility] | | | [...] + + | [facility] | [address] | [place] [address] | [phone] | | HOSPITAL [facility] | | | [...] + + | [facility] | [address] | [place] [address] | [phone] | | HOSPITAL [facility] | | | [...] + + | [facility] | [address] | [place] [address] | [phone] | | HOSPITAL [facility] | | | [...] + + | [facility] | [address] | [place] [address] | [phone] | | HOSPITAL [facility] | | | [...] + + | [facility] | [address] | [place] [address] | [phone] | | [facility]PITAL [facility] | | | [...] | mL/min/1.73m2 | [facility] | | | [facility] | RATE,ESTIMATED | | [facility]OSPITAL | | | | mL/min/1.56h8Vdty than | | LABORATORY | | | [...] + + | [facility] | [address] | [place] [address] | [phone] | | HOSPITAL [facility] | | | [...] + + | [facility] | [address] | [place] [address] | [phone] | | HOSPITAL [facility] | | | [...] + + | [facility] | [address] | [place] [address] | [phone] | | HOSPITAL LAB[facility]ORY | | | [...] | | | | | | | 3354-3021 Use NIGHT DOSE for | | | | | | | doses scheduled: HS, 3AM, | | | | | | | Nighttime 0830-0797 Only for use | | | | [...]
--- OUTSIDE RECORDS SUMMARY | ~2019-02-17 | XMS | Encounter Summary ---
Demographics + + + | Address | [address] | | | [place] [address] | + + + | Home Phone [...] Team Providers + +------+ + | Care Marine Engineering Technicians Name | Role | Phone | + [...] [place] | | | | | [address] | [address] | | | | | [phone] | [phone] | | | | | | | [...] [place] | | | | | | [address] | | | | | | [phone] | | | | | | | | +--------+---------+ + + + | 02/26/ | Office | Urology | Lillie Fowler | | | 2018 | Visit | | [address]IE [address] | | | | | | [address] | | | | | | [place], [place] | | | | | | [address] | | | | | | [phone] | | | | | | | | +--------+---------+ + + + | 03/16/ | Office | Neurology | Theresa, | | | 2018 | Visit | | [address] | | | | | [address] [place], | | | | | | [place] [address] | | | | | | [phone] | | | | | | | | +--------+---------+ + + + | 04/12/ | Office | Primary Care | Massimo Ramos | | | 2019 | Visit | | MD Fer [address] | | | | | | [place] | | | | | | [address] | | | | | | | | +--------+---------+ + + + | 10/03/ | Office | Neurology | Fabián Carias MD | | | 2019 | Visit | | [address] | | | | | | [place] | | | | | | [address] | | | | | | | [...] | | | care | | | Clothes Wringer-C | | | | | | | [...] | | | care | | | Clothes Wringer-C | | | | | | | [...] | | | care | | | Clothes Wringer-C | | | | | | | [...] | | | care | | | Clothes Wringer-C | | | | | | | [...]
--- OUTSIDE RECORDS SUMMARY | ~2019-02-17 | XMS | Encounter Summary ---
Demographics + + + | Address | [address] | | | [place] [address] | + + + | Home Phone [...] Team Providers + +------+ + | Care Nursing Staff Development Coordinator Name | Role | Phone | [...] | | | [facility] [address] | [facility], [place] | | | | [address] [place], | [address] | | | | | [place] [address] | [phone] | | | | | [phone] | | | +--------+--------+ + + + [...] [place] | | | | | | [address] | | | | | | [phone] | | | | | | | | +--------+---------+ + + + | 02/26/ | Office | Urology | Lillie Fowler | | | 2018 | Visit | | [address] | | | | | | [address] | | | | | | [place], [place] | | | | | | [address] | | | | | | [phone] | | | | | | | | +--------+---------+ + + + | 03/16/ | Office | Neurology | Theresa, | | | 2018 | Visit | | [address] | | | | | [address] [place], | | | | | | [place] [address] | | | | | | [phone] | | | | | | | | +--------+---------+ + + + | 04/12/ | Office | Primary Care | Massimo Ramos | | | 2019 | Visit | | MD Fer [address] | | | | | | [place] | | | | | | [address] | | | | | | | | +--------+---------+ + + + | 10/03/ | Office | Neurology | Fabián Carias MD | | | 2019 | Visit | | [address] | | | | | | [place] | | | | | | [address] | | | | | | | [...] | | care | | | Bush Regenerator-C | | | | | | | [...] | | care | | | Bush Regenerator-C | | | | | | | [...] | | care | | | Bush Regenerator-C | | | | | | | [...] | | care | | | Bush Regenerator-C | | | | | | | [...] | | 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
--- OUTSIDE RECORDS SUMMARY | ~2019-02-17 | XMS | Encounter Summary ---
Demographics + + + | Address | [address] | | | [place] [address] | + + + | Home Phone [...] Team Providers + +------+ + | Care Hay Chopper Name | Role | Phone | + [...] | | | [facility] | [facility], [place] | | | | | [address] [place], | [address] | | | | | [place] [address] | [phone] | | | | | [phone] | | | +--------+ + + + [...] [place] | | | | | | [address] | | | | | | [phone] | | | | | | | | +--------+---------+ + + + | 02/26/ | Office | Urology | Lillie Fowler | | | 2018 | Visit | | LILLIE Lopez [address] | | | | | | [address] | | | | | | [place], [place] | | | | | | [address] | | | | | | [phone] | | | | | | | | +--------+---------+ + + + | 03/16/ | Office | Neurology | Theresa, | | | 2018 | Visit | | SHONDA M[address] | | | | | | [address] [place], | | | | | | [place] [address] | | | | | | [phone] | | | | | | | | +--------+---------+ + + + | 04/12/ | Office | Primary Care | Massimo Ramos | | | 2019 | Visit | | MD Fer [address] | | | | | | [place] | | | | | | [address] | | | | | | | | +--------+---------+ + + + | 10/03/ | Office | Neurology | Fabián Carias MD | | | 2019 | Visit | | [address] | | | | | | [place] | | | | | | [address] | | | | | | | [...] | | | care | | | [employer] | | | | | | | [...] | | | care | | | [employer] | | | | | | | [...] | | | care | | | [employer] | | | | | | | [...] | | | care | | | [employer] | | | | | | | [...]
--- OUTSIDE RECORDS SUMMARY | ~2019-02-17 | XMS | Encounter Summary ---
Demographics + + + | Address | [address] | | | [place] [address] | + + + | Home Phone [...] Providers + +------+ + | Care Hand Tacker Name | Role | Phone | + [...] | Visit | HOSPITAL NEUROLOGY | Hank, FARM IMPLEMENT MECHANIC [address] | status, unspecified | | | | CLINIC [address] | [address] [facility] [place], | altered mental | | | | DR [place], | [place] [address] | status type (Primary | | | | [place] [address] | [phone] | Dx) | | | | [phone] | | | +--------+---------+ + + + [...] [place] | | | | | | [address] | | | | | | [phone] | | | | | | | | +--------+---------+ + + + | 02/26/ | Office | Urology | Lillie Fowler | | | 2018 | Visit | | LILLIE Lopez [address] | | | | | | [address] | | | | | | [place], [place] | | | | | | [address] | | | | | | [phone] | | | | | | | | +--------+---------+ + + + | 03/16/ | Office | Neurology | Theresa, | | | 2018 | Visit | | [address]DA [address] | | | | | | [address] [place], | | | | | | [place] [address] | | | | | | [phone] | | | | | | | | +--------+---------+ + + + | 04/12/ | Office | Primary Care | Massimo Ramos Pedro Luis | | | 2019 | Visit | | MD Fer [address] | | | | | | [place] | | | | | | [address] | | | | | | | | +--------+---------+ + + + | 10/03/ | Office | Neurology | Fabián Carias MD | | | 2019 | Visit | | [address] | | | | | | [place] | | | | | | [address] | | | | | | | [...] | | | care | | | Nurse Examiner-C | | | | | | [...] | | | care | | | Nurse Examiner-C | | | | | | [...] | | | care | | | Nurse Examiner-C | | | | | | [...] | | | care | | | Nurse Examiner-C | | | | | | [...]
--- OUTSIDE RECORDS SUMMARY | ~2019-02-17 | XMS | Encounter Summary ---
Demographics + + + | Address | [address] | | | [place] [address] | + + + | Home Phone [...] Team Providers + +------+ + | Care Acid Bath Mixer Name | Role | Phone | [...] Lab Results | | 2018 | | [facility] | MUD TRUCKER | | | | | [facility]ICAL [facility] [address] | | | | | | [facility]TH [facility] [place], | | | | | | [place] [address] | | | | | | [phone] | | | +--------+ + + + [...] [place] | | | | | | [address] | | | | | | [phone] | | | | | | | | +--------+---------+ + + + | 02/26/ | Office | Urology | Lillie Fowler | | | 2018 | Visit | | [address]ILLIE [address] | | | | | | [address] | | | | | | [place], [place] | | | | | | [address] | | | | | | [phone] | | | | | | | | +--------+---------+ + + + | 03/16/ | Office | Neurology | Theresa, | | | 2018 | Visit | | [address] | | | | | | [address] [place], | | | | | | [place] [address] | | | | | | [phone] | | | | | | | [...] [place] | | | | | | [address] | | | | | | | [...] | | care | | | Senior Vice President-C | | | | | | | [...] | | care | | | Senior Vice President-C | | | | | | | [...] | | care | | | Senior Vice President-C | | | | | | | [...] | | care | | | Senior Vice President-C | | | | | | | linical | + +--------+ +---+-----+ + + + | Note: Pt will | | check CBG's daily x1 | | Pt will take Lantis as | | prescribed | + + documented as of this encounter Visit Diagnoses Not on filedocumented in this encounter"
--- OUTSIDE RECORDS SUMMARY | ~2019-02-17 | XMS | Encounter Summary ---
Demographics + + + | Address | [address] | | | [place] [address] | + + + | Home Phone [...] Providers + +------+ + | Care Transport Medic Name | Role | Phone | + [...] | | [place] | [place] [address] | | | | | [address] | [phone] | | | | | [phone] | | | +--------+---------+ + + + [...] [place] | | | | | | [address] | | | | | | [phone] | | | | | | | | +--------+---------+ + + + | 02/26/ | Office | Urology | Lillie Fowler | | | 2018 | Visit | | [address]IE Lopez [address] | | | | | | [address] | | | | | | [place], [place] | | | | | | [address] | | | | | | [phone] | | | | | | | | +--------+---------+ + + + | 03/16/ | Office | Neurology | Theresa, | | | 2018 | Visit | | [address] | | | | | | [address] [place], | | | | | | [place] [address] | | | | | | [phone] | | | | | | | | +--------+---------+ + + + | 04/12/ | Office | Primary Care | Massimo Ramos Pedro Luis | | | 2019 | Visit | | MD Fer [address] | | | | | | [place] | | | | | | [address] | | | | | | | | +--------+---------+ + + + | 10/03/ | Office | Neurology | Fabián Carias MD | | | 2019 | Visit | | [address] | | | | | | [place] | | | | | | [address] | | | | | | | [...] | | | care | | | English Adjunct Faculty-C | | | | | | | [...] | | | care | | | English Adjunct Faculty-C | | | | | | | [...] | | | care | | | English Adjunct Faculty-C | | | | | | | [...] | | | care | | | English Adjunct Faculty-C | | | | | | | [...] + + | [facility] | [address] | [place] [address] | [phone] | | HOSPITAL LABORATORY | | | [...]
--- OUTSIDE RECORDS SUMMARY | ~2019-02-17 | XMS | Encounter Summary ---
Demographics + + + | Address | [address] | | | [place] [address] | + + + | Home Phone [...] Team Providers + +------+ + | Care Curtain Stretcher Assembler Name | Role | Phone | [...] Medication Refill | | 2019 | | [facility] | DO [address] [place] | | | | | [facility]ICAL CL[facility] | [facility], [place] | | | | | [address] [facility], | [address] | | | | | [place] [address] | [phone] | | | | | [phone] | | | +--------+--------+ + + + [...] [place] | | | | | | [address] | | | | | | [phone] | | | | | | | | +--------+---------+ + + + | 02/26/ | Office | Urology | Lillie Fowler | | | 2019 | Visit | | [address]ILLIE [address] | | | | | | [address] | | | | | | [place], [place] | | | | | | [address] | | | | | | [phone] | | | | | | | | +--------+---------+ + + + | 03/16/ | Office | Neurology | Theresa, | | | 2018 | Visit | | [address] | | | | | | [address] [place], | | | | | | [place] [address] | | | | | | [phone] | | | | | | | | +--------+---------+ + + + | 04/12/ | Office | Primary Care | Massimo Ramos Pedro Luis | | | 2019 | Visit | | MD Fer [address] | | | | | | [place] | | | | | | [address] | | | | | | | | +--------+---------+ + + + | 10/03/ | Office | Neurology | Fabián Carias MD | | | 2019 | Visit | | [address] | | | | | | [place] | | | | | | [address] | | | | | | | [...] | | care | | | Dairy Technologist-C | | | | | | [...] | | care | | | Dairy Technologist-C | | | | | | [...] | | care | | | Dairy Technologist-C | | | | | | [...] | | care | | | Dairy Technologist-C | | | | | | | linical | + +--------+ +---+-----+ + + + | Note: Pt will | | check CBG's daily x1 | | Pt will take Lantis as | | prescribed | + + documented as of this encounter Visit Diagnoses Not on filedocumented in this encounter"
--- OUTSIDE RECORDS SUMMARY | ~2019-02-17 | XMS | Encounter Summary ---
Demographics + + + | Address | [address] | | | [place] [address] | + + + | Home Phone [...] Providers + +------+ + | Care Rn Infusion Name | Role | Phone | + [...] | | [place], [place] | [place] [address] | | | | | [address] | [phone] | | | | | [phone] | | | +--------+ + + + [...] [place] | | | | | | [address] | | | | | | [phone] | | | | | | | | +--------+---------+ + + + | 02/26/ | Office | Urology | Lillie Fowler | | | 2018 | Visit | | [address] | | | | | | [address] | | | | | | [place], [place] | | | | | | [address] | | | | | | [phone] | | | | | | | | +--------+---------+ + + + | 03/16/ | Office | Neurology | Theresa, | | | 2018 | Visit | | [address] | | | | | | [address] [place], | | | | | | [place] [address] | | | | | | [phone] | | | | | | | | +--------+---------+ + + + | 04/12/ | Office | Primary Care | Massimo Ramos | | | 2019 | Visit | | MD Fer [address] | | | | | | [place] | | | | | | [address] | | | | | | | | +--------+---------+ + + + | 10/03/ | Office | Neurology | Fabián Carias MD | | | 2019 | Visit | | [address] | | | | | | [place] | | | | | | [address] | | | | | | | [...] | | | care | | | Pegger-C | | | | | | [...] | | | care | | | Pegger-C | | | | | | [...] | | | care | | | Pegger-C | | | | | | [...] | | | care | | | Pegger-C | | | | | | | linical | + +--------+ +---+-----+ + + + | Note: Pt will | | check CBG's daily x1 | | Pt will take Lantis as | | prescribed | + + documented as of this encounter Visit Diagnoses Not on filedocumented in this encounter"
--- OUTSIDE RECORDS SUMMARY | ~2019-02-17 | XMS | Encounter Summary ---
Demographics + + + | Address | [address] | | | [place] [address] | + + + | Home Phone [...] Providers + +------+ + | Care Hotel Supplies Salesperson Name | Role | Phone | [...] [address] | | | | | [place] [address] | | | | | | [phone] | | | +--------+ + + + [...] [place] | | | | | | [address] | | | | | | [phone] | | | | | | | | +--------+---------+ + + + | 02/26/ | Office | Urology | Lillie Fowler | | | 2018 | Visit | | [address] | | | | | | [address] | | | | | | [place], [place] | | | | | | [address] | | | | | | [phone] | | | | | | | | +--------+---------+ + + + | 03/16/ | Office | Neurology | Theresa, | | | 2018 | Visit | | [address] | | | | | | [address] [place], | | | | | | [place] [address] | | | | | | [phone] | | | | | | | | +--------+---------+ + + + | 04/12/ | Office | Primary Care | Massimo Ramos | | | 2019 | Visit | | MD Fer [address] | | | | | | [place] | | | | | | [address] | | | | | | | | +--------+---------+ + + + | 10/03/ | Office | Neurology | Fabián Carias MD | | | 2019 | Visit | | [address] | | | | | | [place] | | | | | | [address] | | | | | | | [...] | | | care | | | Utility Person-C | | | | | | [...] | | | care | | | Utility Person-C | | | | | | [...] | | | care | | | Utility Person-C | | | | | | [...] | | | care | | | Utility Person-C | | | | | | [...]
--- OUTSIDE RECORDS SUMMARY | ~2019-02-17 | XMS | Encounter Summary ---
Demographics + + + | Address | [address] | | | [place] [address] | + + + | Home Phone [...] Team Providers + +------+ + | Care Gang Knife Fish Chopper Name | Role | Phone | [...] | Diagnoses | [place] | [facility] r [facility] | | | | | | [place] [facility] | [facility] | | | | | Office/outpa | MEDICAL | Primary Care | | | | | tient visit | [address] | [address] [facility] | | | | | est | [address] | [place] | | | | | [address], | [address] | [address] | | | | | Authorized | [address] [place] | Phone: | | | | | For any | [place], [place] | [phone] | | | | | clinically | [address] | Fax: | | | | | necessary | Phone: | [phone] | | | | | Visits for | [phone] | | | | | | 365 days | Fax: | | | | | | AUTH NO: | [phone] | | | | | | [id number] | | | +--------+--------+ + + + + Encounter Details +--------+---------+ + + + | Date | Type | Department | Care Team | Description | +--------+---------+ + + + | 09/24/ | Office | [place] [facility] | Faraz Tejada, | Chronic diastolic | | 2019 | Visit | [facility] | DNP [address] | heart failure (HCC) | | | | MEDICAL CLINIC [address] | [place] [address] | (Primary Dx); Cough; | | | | [address] [place], | [phone] | Bilateral lower | | | | [place] [address] | | extremity edema; | | | | [phone] | | Bilateral hearing | | | [...] [place] | | | | | | [address] | | | | | | [phone] | | | | | | | | +--------+---------+ + + + | 02/26/ | Office | Urology | Lillie Fowler | | | 2018 | Visit | | [address] | | | | | | [address] | | | | | | [place] | | | | | | [address] | | | | | | [phone] | | | | | | | | +--------+---------+ + + + | 03/16/ | Office | Neurology | Theresa, | | | 2018 | Visit | | [address] | | | | | | [address] [place], | | | | | | [place] [address] | | | | | | [phone] | | | | | | | [...] [place] | | | | | | [address] | | | | | | | [...] | | | care | | | Fire Ranger-C | | | | | | | [...] | | | care | | | Fire Ranger-C | | | | | | | [...] | | | care | | | Fire Ranger-C | | | | | | | [...] | | | care | | | Fire Ranger-C | | | | | | | [...] | [address] | [place] [address] | [phone] | | [facility] | | | [...] | [facility] | | | [facility] | | | [facility] | | | [...] | [address] | [place] [address] | [phone] | | [facility] | | | [...] + + | [place] [facility] | [address] [facility] | [place] [address] | [phone] | | [facility] | | | | | [facility] | | | | + [...]
--- OUTSIDE RECORDS SUMMARY | ~2019-02-17 | XMS | Encounter Summary ---
Demographics + + + | Address | [address] | | | [place] [address] | + + + | Home Phone [...] Providers + +------+ + | Care Manager Stylist Name | Role | Phone | + [...] [address] | | | | | [place] [address] | | | | | | [phone] | | | +--------+ + + + [...] [place] | | | | | | [address] | | | | | | [phone] | | | | | | | | +--------+---------+ + + + | 02/26/ | Office | Urology | Lillie Fowler | | | 2018 | Visit | | [address] | | | | | | [address] | | | | | | [place], [place] | | | | | | [address] | | | | | | [phone] | | | | | | | | +--------+---------+ + + + | 03/16/ | Office | Neurology | Theresa, | | | 2018 | Visit | | [address] | | | | | | [address] [place], | | | | | | [place] [address] | | | | | | [phone] | | | | | | | | +--------+---------+ + + + | 04/12/ | Office | Primary Care | Massimo Ramos Pedro Luis | | | 2019 | Visit | | MD Fer [address] | | | | | | [place] | | | | | | [address] | | | | | | | | +--------+---------+ + + + | 10/03/ | Office | Neurology | Fabián Carias MD | | | 2019 | Visit | | [address] | | | | | | [place] | | | | | | [address] | | | | | | | [...] | | | care | | | Traction Power Engineer-C | | | | | | [...] | | | care | | | Traction Power Engineer-C | | | | | | [...] | | | care | | | Traction Power Engineer-C | | | | | | [...] | | | care | | | Traction Power Engineer-C | | | | | | | linical | + +--------+ +---+-----+ + + + | Note: Pt will | | check CBG's daily x1 | | Pt will take Lantis as | | prescribed | + + documented as of this encounter Visit Diagnoses Not on filedocumented in this encounter"
--- OUTSIDE RECORDS SUMMARY | ~2019-02-17 | XMS | Encounter Summary ---
Demographics + + + | Address | [address] | | | [place] [address] | + + + | Home Phone [...] Team Providers + +------+ + | Care Dry Wall Installer Name | Role | Phone | [...] | | [place], [place] | [place] [address] | in kidney (HCC) | | 2019 | | [address] | [phone] | (Primary Dx); | | | | [phone] | | Leukocytosis, | | | | | Fernando Ibrahim MD | unspecified type; | | | | | [address] [place] | Hypotension due to | | | | | [place] [address] | hypovolemia; VIKAS | | | | | [phone] | (acute kidney | | | | | | injury) (HCC) | | | | | Kasey Salinas, MACHINE SETTER SHEET METAL | | | | | | [address] | | | | | | [place] [address] | | | | | | [phone] | | | | | | | [...] nonseasonal allergic rhinitis due to pollen 03/07/2017 assisted current use of aspirin 03/07/2017 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, left assisted current use of opiate analgesic 06/27/2017 Current use of beta marly 06/30/2017 Panlobular emphysema 08/08/2017 Atherosclerosis of [place] coronary artery of [place] heart without angina pectoris 08/08 On potassium [...] sciatica 02/19/2018 Hypoxia 03/16/2018 Neutrophilic leukocytosis 03/17/2018 vermin exterminator current use of non-steroidal anti-inflammatories (NSAID) 04/08/2018 [...] 225 g daily was faxed to the [place] pharmacy. The patie nt will need follow-up TSH in 6 weeks. Recommend follow-up basic metabolic panel to evaluat e renal function in 1 week at his PCP follow-up. He was instructed to avoid all NSAIDs. He did mention he takes naproxen at night at times. Pending inpatient studies at time of discharge: None Disposition: Home Follow-Up Plans: Horacio Silvestre DO [address] [facility] [place] [address] In 1 week Hospital follow up Physical [...] Procedure Component Value Units Date/Time Clostridium difficile [[id number]] Order Status: Canceled Lab Status: No result Specimen: Stool from Stool Culture, Blood [[id number]] (Normal) Collected: 07/08/18 0245 Order Status: Completed Lab Status: Preliminary result Updated: 07/10/18250 Specimen: Blood from Peripheral Blood Culture No growth: Monitored continually by instrument for 5 days Culture, Blood [[id number]] (Normal) Collected: 07/08/18 0235 Order Status: Completed [...] Care Everywhere.Kidney Injury, Acute, Discharge Instructions for (Turkmen)documented in this encounter Medications at Time of [...] | | | | | | disease, vermin exterminator | | | | | | [...] Clarence Coulter, PharmMercedes 07/10/2018 11:44 Hilda Wells, MACHINE SETTER SHEET METAL - 07/09/2018 11:08 AM PDTFormatting of this note might be different from the origi nal. MEDICAL HOSPITALIST TEAM PROGRESS NOTE Name:Geraldo Mcfadden [facility] Day # 1 Assessment and [...] on 07/08/2018 2:26 PM Electronically Signed: JASON HillamnC 07/09/2018 Portions of this chart may have been created with voice recognition software. Occasional wo rd or "sound-alike" substitutions may have occurred due to the inherent limitation of voice recognition software. Read the chart carefully and recognize, using context, where these sub stitutions have occurred. Kasey Wells NP - 07/08/2018 12:44 PM PDT MEDICAL HOSPITALIST TEAM PROGRESS NOTE Name:Geraldo Mcfadden [facility] Day # 0 Assessment and [...] * No resolved hospital problems. * VIKAS: Baseline creatinine approximately 1.1. Creatinine on admission [...] Procedure Component Value Units Date/Time Culture, Blood [[id number]] Collected: 07/08/18244 Order Status: Sent Lab Status: In process Updated: 07/08/18246 Specimen: Blood from Peripheral Blood Culture, Blood [[id number]] Collected: 07/08/18 0235 Order Status: Sent Lab [...] oxycodone 30mg tablet q8h prn. Please see [employer] med list for updated medication list. Electronically [...] [place] | | | | | | [address] | | | | | | [phone] | | | | | | | | +--------+---------+ + + + | 02/26/ | Office | Urology | Lillie Fowler | | | 2019 | Visit | | [address]IE [address] | | | | | | [address] | | | | | | [place] | | | | | | [address] | | | | | | [phone] | | | | | | | | +--------+---------+ + + + | 03/16/ | Office | Neurology | Theresa, | | | 2018 | Visit | | Karyanne, PLANT MAINTENANCE TECHNICIAN [address] | | | | | [address] [place], | | | | | | [place] [address] | | | | | | [phone] | | | | | | | | +--------+---------+ + + + | 04/12/ | Office | Primary Care | Massimo Ramos | | | 2019 | Visit | | MD Fer [address] | | | | | | [place] | | | | | | [address] | | | | | | | | +--------+---------+ + + + | 10/03/ | Office | Neurology | Fabián Carias MD | | | 2019 | Visit | | [address] | | | | | | [place] | | | | | | [address] | | | | | | | [...] | | care | | | Data Review Specialist-C | | | | | | [...] | | care | | | Data Review Specialist-C | | | | | | [...] | | care | | | Data Review Specialist-C | | | | | | [...] | | care | | | Data Review Specialist-C | | | | | | [...] J?MRN: | | | | | | [id number] | | | [id number] | | | riteri | | | [...] | | | [place] | | | Ambulance Officer | | | al | | | [...] | | | [place] | | | Ambulance Officer | | | al | | | [...] | | | [id number] | | | [id number] | | | -[id number] | | | [...] + + | [place] [facility] | [address] | [place] [address] | [phone] | | HOS[facility]ITAL [facility] | | | [...] + + | [place] [facility] | [address] | [place] [address] | [phone] | | HOSPITAL [facility] | | | [...] + + | [place] [facility] | [address] | [place] [address] | [phone] | | HOSPITAL [facility] | | | [...] + + | [place] [facility] | [address] | [place] [address] | [phone] | | HOSPITAL LAB[facility]ORY | | | [...] + + | [place] [facility] | [address] | [place] [address] | [phone] | | HOSPITAL [facility] | | | [...] + + | [place] [facility] | [address] | [place] [address] | [phone] | | HOSPITAL LAB[facility]ORY | | | [...] + + | [place] [facility] | [address] | [place] [address] | [phone] | | HOSPITAL LAB[facility] | | | [...] + + | [place] [facility] | [address] | [place] [address] | [phone] | | HOSPITAL [facility] | | | [...] + + | [place] [facility] | [address] | [place] [address] | [phone] | | HOSPITAL [facility] | | | [...] + + | [place] [facility] | [address] | [place] [address] | [phone] | | HOSPITAL [facility] | | | [...] + + | [place] [facility] | [address] | [place] [address] | [phone] | | HOSPITAL LAB[facility]ORY | | | [...] + + | [place] [facility] | [address] | [place] [address] | [phone] | | HOSPITAL LAB[facility] | | | [...] + + | [place] [facility] | [address] | [place] [address] | [phone] | | HOSPITAL LAB[facility]ORY | | | [...] + + | [place] [facility] | [address] | [place] [address] | [phone] | | HOS[facility]ITAL [facility] | | | [...] | Procedure Note | + + | Luoise, Rad Results In - 07/08/2018 2:30 PM [...] + + | [place] [facility] | [address] | [place] [address] | [phone] | | HOSPITAL [facility] | | | [...] - 1.030 | [place] | | | [place] | | | [facility] | | | [...] + + | [place] [facility] | [address] | [place] [address] | [phone] | | HOSPITAL LAB[facility]ORY | | | [...] + + | [place] [facility] | [address] | [place] [address] | [phone] | | HOSPITAL [facility]ORY | | | [...] | [address] | [place] [address] | [phone] | | [facility] | | | [...] + + | [place] [facility] | [address] | [place] [address] | [phone] | | HOSPITAL [facility] | | | [...] + + | [place] [facility] | [address] | [place] [address] | [phone] | | HOSPITAL [facility] | | | [...] + + | [place] [facility] | [address] | [place] [address] | [phone] | | HOSPITAL [facility] | | | [...] + + | [place] [facility] | [address] | [place] [address] | [phone] | | H[facility]ITAL [facility] | | | [...] + + | [place] [facility] | [address] | [place] [address] | [phone] | | HOSPITAL [facility] | | | | + + + + + ECG 12 lead (07/07/2018 10:12 PM PDT) + + | Specimen | + + | | + + + + + | Narrative | Performed At | + + + | Heart Rate: 74 | [facility] | | bpmQRS Interval: 98 msQT Interval: 432 msQTC Interval: 480 msP [place]: | TRACEMASTER | | 17 degQRS [place]: -47 degT Wave [place]: -5 degP-R Interval: 180 msec- | | [...] + + | [place] [facility] | [address] | [place] [address] | [phone] | | [facility]ITAL [facility] | | | [...] + + | [place] [facility] | [address] | [place] [address] | [phone] | | [facility]ITAL [facility] | | | [...] + + | [place] [facility] | [address] | [place] [address] | [phone] | | H[facility] | | | [...] + + | [facility] | [address] | [place] [address] | [phone] | | [facility] | | | [...] | cutoff point for the diagnosis of [place] is 0.8 ng/mL for the Troponin I | | | method. | | + + + + + + + + | Performing | Address | City/State/Zipcode | Phone Number | | Organization | | | | + + + + + | [facility] | [address] | [place] [address] | [phone] | | [facility] | | | [...] + + | [facility] | [address] | [place] [address] | [phone] | | [facility] | | | [...] | | HOSPITAL | | | | mL/min/1.99b2Kfsg than | | LABORATORY | | | [...] + + | [facility] | [address] | [place] [address] | [phone] | | [facility] | | | [...] + + | [facility] | [address] | [place] [address] | [phone] | | [facility] | | | [...] mL 0.5 mL, | | | Intramuscular, [employer], Starting | | | Fri07/08/18 at 1139, [...] | | | | AC, NPO, Daytime 7538-7163 Use | | | | | | | NIGHT DOSE for doses scheduled: | | | | | | | HS, 3AM, Nighttime [id number] | | | | | | | [...] | | | | | | | [facility] 07/09/18 at 0730, Give before | [...]
--- OUTSIDE RECORDS SUMMARY | ~2019-02-17 | XMS | Encounter Summary ---
Demographics + + + | Address | [address] | | | [place] [address] | + + + | Home Phone [...] Team Providers + +------+ + | Care Mold Maintenance Technician Name | Role | Phone [...] | | | | | [facility], | [address] | | | | | [place] [address] | [phone] | | | | | [phone] | | | +--------+ + + + [...] [place] | | | | | | [address] | | | | | | [phone] | | | | | | | | +--------+---------+ + + + | 02/26/ | Office | Urology | Lillie Fowler | | | 2018 | Visit | | LILLIE Lopez [address] | | | | | | [address] | | | | | | [place] | | | | | | [address] | | | | | | [phone] | | | | | | | | +--------+---------+ + + + | 03/16/ | Office | Neurology | Theresa, | | | 2018 | Visit | | [address] | | | | | | [address] [place], | | | | | | [place] [address] | | | | | | [phone] | | | | | | | | +--------+---------+ + + + | 04/12/ | Office | Primary Care | Massimo Ramos | | | 2019 | Visit | | MD Fer [address] | | | | | | [place] | | | | | | [address] | | | | | | | | +--------+---------+ + + + | 10/03/ | Office | Neurology | Fabián Carias MD | | | 2019 | Visit | | [address] | | | | | | [place] | | | | | | [address] | | | | | | | [...] | | care | | | Commercial Leasing Manager-C | | | | | | [...] | | care | | | Commercial Leasing Manager-C | | | | | | [...] | | care | | | Commercial Leasing Manager-C | | | | | | [...] | | care | | | Commercial Leasing Manager-C | | | | | | | linical | + +--------+ +---+-----+ + + + | Note: Pt will | | check CBG's daily x1 | | Pt will take Lantis as | | prescribed | + + documented as of this encounter Visit Diagnoses Not on filedocumented in this encounter"
--- OUTSIDE RECORDS SUMMARY | ~2019-02-17 | XMS | Encounter Summary ---
Demographics + + + | Address | [address] | | | [place] [address] | + + + | Home Phone [...] Team Providers + +------+ + | Care Dishwasher Preparer Name | Role | Phone | + [...] | | [address] [place] | 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 [facility] note, the patient's platelet counts were [...] Disposition: Home Follow-Up Plans: Horacio Silvestre DO [address] [place] [address] Schedule an appointment as soon as possible for a visit in 1 week F/U pneumonia. Esteban Calvillo, 01/11/2018 Time spent discharging this patient: 25 minutes spent caring for this patient. documented in this encounter Discharge Instructions AttachmentsThe following attachments cannot be sent through Care Everywhere.Adult, Pneumoni a (Khmer)documented in this encounter Medications at Time of [...] | | | | | | disease, [facility] | | | | | | | [...] MEDICAL HOSPITALIST TEAM PROGRESS NOTE Name:Geraldo Durbin [facility] Day # 1 Reason for admission and [...] which he reports as >250. Please see CUSTODIAL OFFICER med list for updated medication list. Electronically [...] [place] | | | | | | [address] | | | | | | [phone] | | | | | | | | +--------+---------+ + + + | 02/26/ | Office | Urology | Lillie Fowler | | | 2018 | Visit | | [address]IE Lopez [address] | | | | | | [address] | | | | | | [place], [place] | | | | | | [address] | | | | | | [phone] | | | | | | | | +--------+---------+ + + + | 03/16/ | Office | Neurology | Theresa, | | | 2018 | Visit | | [address] | | | | | | [address] [place], | | | | | | [place] [address] | | | | | | [phone] | | | | | | | | +--------+---------+ + + + | 04/12/ | Office | Primary Care | Massimo Ramos | | | 2019 | Visit | | MD Fer [address] | | | | | | [place] | | | | | | [address] | | | | | | | | +--------+---------+ + + + | 10/03/ | Office | Neurology | Fabián Carias MD | | | 2019 | Visit | | [address] | | | | | | [place] | | | | | | [address] | | | | | | | [...] | | | care | | | Doll Repairer-C | | | | | | [...] | | | care | | | Doll Repairer-C | | | | | | [...] | | | care | | | Doll Repairer-C | | | | | | [...] | | | care | | | Doll Repairer-C | | | | | | [...] J?MRN: | | | | | | [id number] | | | [id number] | | | ecurit | | | [...] + + | [place] [facility] | [address] | [place] [address] | [phone] | | [facility] | | | [...] + + | [place] [facility] | [address] | [place] [address] | [phone] | | [facility]ITAL [facility] | | | [...] + + | [place] [facility] | [address] | [place] [address] | [phone] | | HOS[facility]ITAL [facility] | | | [...] + + | [place] [facility] | [address] | [place] [address] | [phone] | | [facility]ITAL [facility] | | | [...] + + | [place] [facility] | [address] | [place] [address] | [phone] | | HOS[facility]ITAL [facility] | | | [...] + + | [place] [facility] | [address] | [place] [address] | [phone] | | HOS[facility]ITAL [facility] | | | [...] + + | [place] [facility] | [address] | [place] [address] | [phone] | | [facility]ITAL [facility] | | | [...] + + | [place] [facility] | [address] | [place] [address] | [phone] | | H[facility]PITAL [facility] | | | [...] + + | [place] [facility] | [address] | [place] [address] | [phone] | | H[facility]ITAL [facility] | | | [...] + + | [place] [facility] | [address] | [place] [address] | [phone] | | HOSPITAL [facility] | | | [...] - 1.030 | [place] | | | [place] | | | [facility] | | | [...] | Blood, | Negative | Negative | [place] | | | Urine | | | [...] + + | [place] [facility] | [address] | [place] [address] | [phone] | | H[facility]ITAL [facility] | | | [...] + + | [place] [facility] | [address] | [place] [address] | [phone] | | HOSPITAL [facility] | | | [...] + + | [place] [facility] | [address] | [place] [address] | [phone] | | HOSPITAL [facility] | | | [...] + + | [place] [facility] | [address] | [place] [address] | [phone] | | H[facility]ITAL [facility] | | | [...] + + | [place] [facility] | [address] | [place] [address] | [phone] | | H[facility]ITAL [facility] | | | [...] + + | [place] [facility] | [address] | [place] [address] | [phone] | | H[facility]ITAL [facility] | | | [...] | cutoff point for the diagnosis of SC is 0.8 ng/mL for the Troponin I | | | method. | | + + + + + + + + | Performing | Address | City/State/Zipcode | Phone Number | | Organization | | | | + + + + + | [facility] [facility] | [address] | [place] [address] | [phone] | | [facility]ITAL [facility] | | | [...] | | HOSPITAL | | | | mL/min/1.95i5Swec than | | LABORATORY | | | [...] + + | [place] [facility] | [address] | [place] [address] | [phone] | | H[facility]ITAL [facility] | | | [...] 10.5 | 9.4 - 12.4 fL | [place] [...] + + | [place] [facility] | [address] | [place] [address] | [phone] | | H[facility]ITAL [facility] | | | [...] + + | [place] [facility] | [address] | [place] [address] | [phone] | | HOSPITAL [facility] | | | | + + + + + ECG 12 lead (01/09/2018 10:23 AM PDT) + + | Specimen | + + | | + + + + + | Narrative | Performed At | + + + | Heart Rate: 72 | [facility] | | bpmQRS Interval: 84 msQT Interval: 372 msQTC Interval: 408 msP Lucas: | TRACEMASTER | | degQRS Lucas: -48 degT Wave Lucas: 23 degP-R Interval: msec- | | | ABNORMAL ECG -WANDERING ATRIAL PACEMAKERLEFT ANTERIOR FASCICULAR BLOCK | | | [Remains]LATE PRECORDIAL R/S TRANSITION [Now Present]SIGNIFICANT | | | RHYTHM CHANGES[Now Absent] SINUS RHYTHM | | |T Wave Lucas: 23 deg | | |P-R Interval: msec [...] | | | | | | Intramuscular, CERAMICS ENGINEER, Starting | | | | | | [...] | | | | | NPO, Daytime 1208-2422 Use NIGHT | | | | | | | DOSE for doses scheduled: | | | | | | | HS, 3AM, Nighttime 4369-2162 Only | | | | | | [...]
--- OUTSIDE RECORDS SUMMARY | ~2019-02-17 | XMS | Encounter Summary ---
Demographics + + + | Address | [address] | | | [place] [address] | + + + | Home Phone [...] Team Providers + +------+ + | Care Visually Impaired Teacher Name | Role | Phone | [...] [facility] | DO [address] | | | | | [facility] [address] | [place], [place] | | | | | [address] [place], | [address] | | | | | [place] [address] | [phone] | | | | | [phone] | | | +--------+ + + + [...] [place] | | | | | | [address] | | | | | | [phone] | | | | | | | | +--------+---------+ + + + | 02/26/ | Office | Urology | Lillie Fowler | | | 2018 | Visit | | [address]ILLIE Lopez [address] | | | | | | [address] | | | | | | [place] | | | | | | [address] | | | | | | [phone] | | | | | | | | +--------+---------+ + + + | 03/16/ | Office | Neurology | Theresa, | | | 2018 | Visit | | [address] | | | | | | [address] [place], | | | | | | [place] [address] | | | | | | [phone] | | | | | | | | +--------+---------+ + + + | 04/12/ | Office | Primary Care | Massimo Ramos | | | 2019 | Visit | | MD Fer [address] | | | | | | [place] | | | | | | [address] | | | | | | | | +--------+---------+ + + + | 10/03/ | Office | Neurology | Fabián Carias MD | | | 2019 | Visit | | [address] | | | | | | [place] | | | | | | [address] | | | | | | | [...] | | | care | | | Sugarcane Planter-C | | | | | | | [...] | | | care | | | Sugarcane Planter-C | | | | | | | [...] | | | care | | | Sugarcane Planter-C | | | | | | | [...] | | | care | | | Sugarcane Planter-C | | | | | | | linical | + +--------+ +---+-----+ + + + | Note: Pt will | | check CBG's daily x1 | | Pt will take Lantis as | | prescribed | + + documented as of this encounter Visit Diagnoses Not on filedocumented in this encounter"
--- OUTSIDE RECORDS SUMMARY | ~2019-02-17 | XMS | Encounter Summary ---
Demographics + + + | Address | [address] | | | [place] [address] | + + + | Home Phone [...] Team Providers + +------+ + | Care Air Compressor Operator Name | Role | Phone | + +------+ + | Horacio Silvestre DO | PCP | | + +------+ + Reason for Visit + + + | Reason | Comments | + + + | Hospice Home Visit | | + + + Encounter Details +--------+ + + + + | Date | Type | Department | Care Team | Description | +--------+ + + + + | 12/01/ | Telephone | [place] [facility] | Horacio Silvestre, | Hospice Home Visit | | 2019 | | [facility] | DO [address] | | | | | [facility] [address] | [facility] [place] | | | | | [address] [place], | [address] | | | | | [place] [address] | [phone] | | | | | [phone] | | | +--------+ + + + [...] [place] | | | | | | [address] | | | | | | [phone] | | | | | | | | +--------+---------+ + + + | 02/26/ | Office | Urology | Lillie Fowler | | | 2018 | Visit | | [address]ILLIE Lopez [address] | | | | | | [address] | | | | | | [place], [place] | | | | | | [address] | | | | | | [phone] | | | | | | | | +--------+---------+ + + + | 03/16/ | Office | Neurology | Theresa, | | | 2018 | Visit | | [address] | | | | | | [address] [place], | | | | | | [place] [address] | | | | | | [phone] | | | | | | | | +--------+---------+ + + + | 04/12/ | Office | Primary Care | Massimo Ramos | | | 2019 | Visit | | MD Fer [address] | | | | | | [place] | | | | | | [address] | | | | | | | | +--------+---------+ + + + | 10/03/ | Office | Neurology | Fabián Carias MD | | | 2019 | Visit | | [address] | | | | | | [place] | | | | | | [address] | | | | | | | [...] | | care | | | Lead Handler-C | | | | | | | [...] | | care | | | Lead Handler-C | | | | | | | [...] | | care | | | Lead Handler-C | | | | | | | [...] | | care | | | Lead Handler-C | | | | | | | [...]
--- OUTSIDE RECORDS SUMMARY | ~2019-02-17 | XMS | Encounter Summary ---
Demographics + + + | Address | [address] | | | [place] [address] | + + + | Home Phone [...] Providers + +------+ + | Care Grain Elevator Superintendent Name | Role | Phone | + [...] | 2018 | | [facility] | [facility] [address] [facility] | referral ) | | | | MEDICAL [facility] [address] | [facility], [place] | | | | | [address] [place], | [address] | | | | | [place] [address] | [phone] | | | | | [phone] | | | +--------+ + + + [...] DR | | | | | | [place], [place] | | | | | | [address] | | | | | | [phone] | | | | | | | | +--------+---------+ + + + | 02/26/ | Office | Urology | Lillie Fowler | | | 2018 | Visit | | [address]IE [address] | | | | | | [address] | | | | | | [place], [place] | | | | | | [address] | | | | | | [phone] | | | | | | | | +--------+---------+ + + + | 03/16/ | Office | Neurology | Theresa, | | | 2018 | Visit | | [address] | | | | | | [address] [place], | | | | | | [place] [address] | | | | | | [phone] | | | | | | | | +--------+---------+ + + + | 04/12/ | Office | Primary Care | Massimo Ramos | | | 2019 | Visit | | MD Fer [address] | | | | | | [address] [place], [place] | | | | | | [address] | | | | | | | | +--------+---------+ + + + | 10/03/ | Office | Neurology | Fabián Carias MD | | | 2019 | Visit | | [address] | | | | | | [place], [place] | | | | | | [address] | | | | | | | [...] | | | care | | | Managing Attorney-C | | | | | | [...] | | | care | | | Managing Attorney-C | | | | | | [...] | | | care | | | Managing Attorney-C | | | | | | [...] | | | care | | | Managing Attorney-C | | | | | | | linical | + +--------+ +---+-----+ + + + | Note: Pt will | | check CBG's daily x1 | | Pt will take Lantis as | | prescribed | + + documented as of this encounter Visit Diagnoses Not on filedocumented in this encounter"
--- OUTSIDE RECORDS SUMMARY | ~2019-02-17 | XMS | Encounter Summary ---
Demographics + + + | Address | [address] | | | [place] [address] | + + + | Home Phone [...] Team Providers + +------+ + | Care Delivery Driver Assistant Name | Role | Phone | [...] 2019 | | HOSPITAL [facility] | DRAFTER CIVIL (CAD) [address] , | | | | | [address] | [place], | | | | | [address] [place] | [place] [address] | | | | | [place], [place] | [phone] | | | | | [address] | | | | | | [phone] | | | +--------+ + + + [...] [place] | | | | | | [address] | | | | | | [phone] | | | | | | | | +--------+---------+ + + + | 02/26/ | Office | Urology | Lillie Fowler | | | 2018 | Visit | | [address]ILLIE Lopez [address] | | | | | | [address] | | | | | | [place], [place] | | | | | | [address] | | | | | | [phone] | | | | | | | | +--------+---------+ + + + | 03/16/ | Office | Neurology | Theresa, | | | 2018 | Visit | | [address] | | | | | | [address] [place], | | | | | | [place] [address] | | | | | | [phone] | | | | | | | | +--------+---------+ + + + | 04/12/ | Office | Primary Care | Massimo Ramos | | | 2019 | Visit | | MD Fer [address] | | | | | | [place] | | | | | | [address] | | | | | | | | +--------+---------+ + + + | 10/03/ | Office | Neurology | Fabián Carias MD | | | 2019 | Visit | | [address] | | | | | | [place] | | | | | | [address] | | | | | | | [...] | | | care | | | Museum Educator-C | | | | | | | [...] | | | care | | | Museum Educator-C | | | | | | | [...] | | | care | | | Museum Educator-C | | | | | | | [...] | | | care | | | Museum Educator-C | | | | | | | linical | + +--------+ +---+-----+ + + + | Note: Pt will | | check CBG's daily x1 | | Pt will take Lantis as | | prescribed | + + documented as of this encounter Visit Diagnoses Not on filedocumented in this encounter"
--- OUTSIDE RECORDS SUMMARY | ~2019-02-17 | XMS | Encounter Summary ---
Demographics + + + | Address | [address] | | | [place] [address] | + + + | Home Phone [...] Providers + +------+ + | Care Yard Demurrage Clerk Name | Role | Phone | + +------+ + | Ryan Gutiérrez MD | PCP | | + +------+ + Encounter Details +--------+ + + + + | Date | Type | Department | Care Team | Description | +--------+ + + + + | 12/17/ | [facility] | [place], | | | 2016 | Encounter | [facility] | Carlyle Antoine, | | | | | SURGERY [address] | [address] | | | | | [address] [place], | [place], [place] | | | | | [place] [address] | [address] | | | | | [phone] | [phone] | | | | | | | [...] [place] | | | | | | [address] | | | | | | [phone] | | | | | | | | +--------+---------+ + + + | 02/26/ | Office | Urology | Lillie Fowler | | | 2018 | Visit | | LILLIE Lopez [address] | | | | | | [address] | | | | | | [place] | | | | | | [address] | | | | | | [phone] | | | | | | | | +--------+---------+ + + + | 03/16/ | Office | Neurology | Theresa, | | | 2018 | Visit | | [address] | | | | | | [address] [place], | | | | | | [place] [address] | | | | | | [phone] | | | | | | | | +--------+---------+ + + + | 04/12/ | Office | Primary Care | Massimo Ramos | | | 2019 | Visit | | MD Fer [address] | | | | | | [place] | | | | | | [address] | | | | | | | [...] | | | care | | | Insights Analyst-C | | | | | | [...] | | | care | | | Insights Analyst-C | | | | | | [...] | | | care | | | Insights Analyst-C | | | | | | [...] | | | care | | | Insights Analyst-C | | | | | | | linical | + +--------+ +---+-----+ + + + | Note: Pt will | | check CBG's daily x1 | | Pt will take Lantis as | | prescribed | + + documented as of this encounter Visit Diagnoses Not on filedocumented in this encounter"
--- OUTSIDE RECORDS SUMMARY | ~2019-02-17 | XMS | Encounter Summary ---
Demographics + + + | Address | [address] | | | [place] [address] | + + + | Home Phone [...] + +------+ + | Care Grain Elevator Agent Name | Role | Phone | [...] + | 10/26/ | Telephone | [place] [facility] | Horacio Silvestre, | Home Health | | 2019 | | [facility] | DO [address] | | | | | MEDICAL CL[facility] [address] | [facility] [place] | | | | | [address] [place], | [address] | | | | | [place] [address] | [phone] | | | | | [phone] | | | +--------+ + + + [...] [place] | | | | | | [address] | | | | | | [phone] | | | | | | | | +--------+---------+ + + + | 02/26/ | Office | Urology | Lillie Fowler | | | 2018 | Visit | | [address]ILLIE Lopez [address] | | | | | | [address] | | | | | | [place], [place] | | | | | | [address] | | | | | | [phone] | | | | | | | | +--------+---------+ + + + | 03/16/ | Office | Neurology | Theresa, | | | 2018 | Visit | | [address] | | | | | | [address] [place], | | | | | | [place] [address] | | | | | | [phone] | | | | | | | | +--------+---------+ + + + | 04/12/ | Office | Primary Care | Massimo Ramos | | | 2019 | Visit | | MD Fer [address] | | | | | | [place] | | | | | | [address] | | | | | | | | +--------+---------+ + + + | 10/03/ | Office | Neurology | Fabián Carias MD | | | 2019 | Visit | | [address] | | | | | | [place] | | | | | | [address] | | | | | | | [...] | | | care | | | Staff Rn-C | | | | | | [...] | | | care | | | Staff Rn-C | | | | | | [...] | | | care | | | Staff Rn-C | | | | | | [...] | | | care | | | Staff Rn-C | | | | | | [...]
--- OUTSIDE RECORDS SUMMARY | ~2019-02-17 | XMS | Encounter Summary ---
Demographics + + + | Address | [address] | | | [place] [address] | + + + | Home Phone [...] Team Providers + +------+ + | Care Winch Driver Name | Role | Phone | + +------+ + | Horacio Silvestre DO | PCP | | + +------+ + Encounter Details +--------+ + + + + | Date | Type | Department | Care Team | Description | +--------+ + + + + | 03/13/ | Orders Only | [place] [facility] | Horacio Silvestre, | Type 2 diabetes | | 2017 | | [facility] | DO [address] | mellitus with | | | | MEDICAL CLIN[facility] [address] | [place], [place] | diabetic | | | | [address] [place], | [address] | polyneuropathy, with | | | | [place] [address] | [phone] | long-term current | | | | [phone] | | use of insulin (HCC) | [...] [place] | | | | | | [address] | | | | | | [phone] | | | | | | | | +--------+---------+ + + + | 02/26/ | Office | Urology | Lillie Fowler | | | 2018 | Visit | | [address]IE [address] | | | | | | [address] | | | | | | [place], [place] | | | | | | [address] | | | | | | [phone] | | | | | | | | +--------+---------+ + + + | 03/16/ | Office | Neurology | Theresa, | | | 2018 | Visit | | [address] | | | | | | [address] [place], | | | | | | [place] [address] | | | | | | [phone] | | | | | | | | +--------+---------+ + + + | 04/12/ | Office | Primary Care | Massimo Ramos | | | 2019 | Visit | | MD Fer [address] | | | | | | [address] [place], [place] | | | | | | [address] | | | | | | | | +--------+---------+ + + + | 10/03/ | Office | Neurology | Fabián Carias MD | | | 2019 | Visit | | [address] | | | | | | [place] | | | | | | [address] | | | | | | | [...] | | | care | | | Magisterial District Judge-C | | | | | | | [...] | | | care | | | Magisterial District Judge-C | | | | | | | [...] | | | care | | | Magisterial District Judge-C | | | | | | | [...] | | | care | | | Magisterial District Judge-C | | | | | | | linical | + +--------+ +---+-----+ + + + | Note: Pt will | | check CBG's daily x1 | | Pt will take Lantis as | | prescribed | + + documented as of this encounter Results Hemoglobin A1C (03/20/2017 2:51 PM PST) + +-------+ + + + | Component | Value | Ref Range | Performed | Pathologist | | | | | At | Signature | + +-------+ + + + | Hemoglobin | 6.2 | % | [place] | | | A1c | | | [facility] | | [facility] | | | | [facility] | | | | | | [facility] | | + +-------+ + + + | Estimated | 131 | mg/dL | [place] | | | [...] | [facility] [facility] | [address] | [place] [address] | [phone] | | [facility] | | | | | [facility] | | | | + + + + + documented in this encounter Visit Diagnoses + + | Diagnosis | + + | Type 2 diabetes mellitus with diabetic polyneuropathy, 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) - Primary | + + documented in this encounter"
--- OUTSIDE RECORDS SUMMARY | ~2019-02-17 | XMS | Encounter Summary ---
Demographics + + + | Address | [address] | | | [place] [address] | + + + | Home Phone [...] Team Providers + +------+ + | Care Electromechanical Equipment Tester Name | Role | Phone | [...] [id number] | | | | | [place] [address] | | | | | | [phone] | | | +--------+ + + + [...] [place] | | | | | | [address] | | | | | | [phone] | | | | | | | | +--------+---------+ + + + | 02/26/ | Office | Urology | Lillie Fowler | | | 2018 | Visit | | LILLIE Lopez [address] | | | | | [address] | | | | | | [place], [place] | | | | | | [address] | | | | | | [phone] | | | | | | | | +--------+---------+ + + + | 03/16/ | Office | Neurology | Theresa, | | | 2018 | Visit | | SHONDA Mckinney [address] | | | [address] [place], | | | | | | [place] [address] | | | | | | [phone] | | | | | | | | +--------+---------+ + + + | 04/12/ | Office | Primary Care | Massimo Ramos Pedro Luis | | | 2019 | Visit | | MD Fer [address] | | | | | | [address] [place] | | | | | | [address] | | | | | | | | +--------+---------+ + + + | 10/03/ | Office | Neurology | Fabián Carias MD | | | 2019 | Visit | | [address] | | | | | | [place] | | | | | | [address] | | | | | | | [...] | | | care | | | Job Foreman-C | | | | | | [...] | | | care | | | Job Foreman-C | | | | | | [...] | | | care | | | Job Foreman-C | | | | | | | gleyical | + +--------+ +---+-----+ + + + [...] | | | care | | | Job Foreman-C | | | | | | [...]
--- OUTSIDE RECORDS SUMMARY | ~2019-02-17 | XMS | Encounter Summary ---
Demographics + + + | Address | [address] | | | [place] [address] | + + + | Home Phone [...] Team Providers + +------+ + | Care Associate Director Financial Aid Name | Role | Phone | + [...] | | unspecified | [place], [place] | [address] Phone: | | | | | back pain | [address] | [phone] | | | | | laterality | Phone: | Fax: | | | | | Other | [phone] | [phone] | | | | | amnesia | Fax: | | | | | | Procedures | [phone] | | | | | | HI INJECT | | | | | | [...] unspecified back | | | | [place] [address] | | pain laterality | | | | [phone] | | (Primary Dx); Sprain | | [...] [place] | | | | | | [address] | | | | | | [phone] | | | | | | | | +--------+---------+ + + + | 02/26/ | Office | Urology | Lillie Fowler | | | 2018 | Visit | | [address] | | | | | | [address] | | | | | | [place] | | | | | | [address] | | | | | | [phone] | | | | | | | | +--------+---------+ + + + | 03/16/ | Office | Neurology | Theresa, | | | 2018 | Visit | | [address] | | | | | | [address] [place], | | | | | | [place] [address] | | | | | | [phone] | | | | | | | | +--------+---------+ + + + | 04/12/ | Office | Primary Care | Massimo Ramos | | | 2019 | Visit | | MD [address] | | | | | | [place] | | | | | | [address] | | | | | | | | +--------+---------+ + + + | 10/03/ | Office | Neurology | Fabián Carias MD | | | 2019 | Visit | | [address] | | | | | | [place] | | | | | | [address] | | | | | | | [...] | | | care | | | University Registrar-C | | | | | | | [...] | | | care | | | University Registrar-C | | | | | | | [...] | | | care | | | University Registrar-C | | | | | | | [...] | | | care | | | University Registrar-C | | | | | | | [...] | HI INJECT TRIGGER | Routin | 02/19/2018 | [...] | | | | | Other, ONCE, [facility] 02/19/18 at | | AM PST | [...] | | | uteal-Ri | | ONCE, [facility] 02/19/18 at 1015, For 1 | | [...]
--- OUTSIDE RECORDS SUMMARY | ~2019-02-17 | XMS | Encounter Summary ---
Demographics + + + | Address | [address] | | | [place] [address] | + + + | Home Phone [...] Team Providers + +------+ + | Care Technical Sales Engineer Name | Role | Phone | [...] | | | | | [address] [place], | | | | | | [place] [address] | | | | | | [phone] | | | +--------+ + + + [...] [place] | | | | | | [address] | | | | | | [phone] | | | | | | | | +--------+---------+ + + + | 02/26/ | Office | Urology | Lillie Fowler | | | 2018 | Visit | | [address] | | | | | | [address] | | | | | | [place], [place] | | | | | | [address] | | | | | | [phone] | | | | | | | | +--------+---------+ + + + | 03/16/ | Office | Neurology | Theresa, | | | 2018 | Visit | | [address] | | | | | | [address] [place], | | | | | | [place] [address] | | | | | | [phone] | | | | | | | | +--------+---------+ + + + | 04/12/ | Office | Primary Care | Massimo Ramos | | | 2019 | Visit | | MD [address] | | | | | | [place] | | | | | | [address] | | | | | | | | +--------+---------+ + + + | 10/03/ | Office | Neurology | Fabián Carias MD | | | 2019 | Visit | | [address] | | | | | | [place] | | | | | | [address] | | | | | | | [...] | | care | | | Electron Tube Assembler-C | | | | | | [...] | | care | | | Electron Tube Assembler-C | | | | | | [...] | | care | | | Electron Tube Assembler-C | | | | | | [...] | | care | | | Electron Tube Assembler-C | | | | | | [...]
--- OUTSIDE RECORDS SUMMARY | ~2019-02-17 | XMS | Encounter Summary ---
Demographics + + + | Address | [address] | | | [place] [address] | + + + | Home Phone [...] Team Providers + +------+ + | Care Cellar Supervisor Name | Role | Phone | + +------+ + | Ryan Gutiérrez MD | PCP | | + +------+ + Encounter Details +--------+ + + + + | Date | Type | Department | Care Team | Description | +--------+ + + + + | 07/16/ | Hospital | [facility] | Aleja, | | | 2016 | Encounter | HOSPITAL RESPIRATORY | [address] | | | | | THERAPY [address] | [address] | | | | | [address] [place], [place] | [place] | | | | | [address] | [address] | | | | | [phone] | | | +--------+ + + + [...] [place] | | | | | | [address] | | | | | | [phone] | | | | | | | | +--------+---------+ + + + | 02/26/ | Office | Urology | Lillie Fowler | | | 2018 | Visit | | [address] | | | | | | [address] | | | | | | [place] | | | | | | [address] | | | | | | [phone] | | | | | | | | +--------+---------+ + + + | 03/16/ | Office | Neurology | Theresa, | | | 2018 | Visit | | [address] | | | | | | [address] [place], | | | | | | [place] [address] | | | | | | [phone] | | | | | | | | +--------+---------+ + + + | 04/12/ | Office | Primary Care | Massimo Ramos | | | 2019 | Visit | | MD [address] | | | | | | [place] | | | | | | [address] | | | | | | | | +--------+---------+ + + + | 10/03/ | Office | Neurology | Fabián Carias MD | | | 2019 | Visit | | [address] | | | | | | [place] | | | | | | [address] | | | | | | | [...] | | care | | | Medical Aides Teacher-C | | | | | | [...] | | care | | | Medical Aides Teacher-C | | | | | | [...] | | care | | | Medical Aides Teacher-C | | | | | | [...] | | care | | | Medical Aides Teacher-C | | | | | | | linical | + +--------+ +---+-----+ + + + | Note: Pt will | | check CBG's daily x1 | | Pt will take Lantis as | | prescribed | + + documented as of this encounter Visit Diagnoses Not on filedocumented in this encounter"
--- OUTSIDE RECORDS SUMMARY | ~2019-02-17 | XMS | Encounter Summary ---
Demographics + + + | Address | [address] | | | [place] [address] | + + + | Home Phone [...] Providers + +------+ + | Care Associate Professor Of Violin Name | Role | Phone | + [...] | Encounter | HOSPITAL XRAY [facility] | PERSONNEL OFFICER [address] | | | | | [address] [place] | [place] [address] | | | | | [place], [place] | [phone] | | | | | [address] | | | | | | [phone] | | | +--------+ + + + [...] | | | | | | disease, bed bug exterminator | | | | | | [...] [place] | | | | | | [address] | | | | | | [phone] | | | | | | | | +--------+---------+ + + + | 02/26/ | Office | Urology | Lillie Fowler | | | 2018 | Visit | | [address] | | | | | | [address] | | | | | | [place] | | | | | | [address] | | | | | | [phone] | | | | | | | | +--------+---------+ + + + | 03/16/ | Office | Neurology | Theresa, | | | 2018 | Visit | | [address] | | | | | | [address] [place], | | | | | | [place] [address] | | | | | | [phone] | | | | | | | | +--------+---------+ + + + | 04/12/ | Office | Primary Care | Massimo Ramos | | | 2019 | Visit | | MD [address] | | | | | | [address] [place], [place] | | | | | | [address] | | | | | | | | +--------+---------+ + + + | 10/03/ | Office | Neurology | Fabián Carias MD | | | 2019 | Visit | | [address] | | | | | | [place] | | | | | | [address] | | | | | | | [...] | | | care | | | Yacht Rigger-C | | | | | | | [...] | | | care | | | Yacht Rigger-C | | | | | | | [...] | | | care | | | Yacht Rigger-C | | | | | | | [...] | | | care | | | Yacht Rigger-C | | | | | | | [...]
--- OUTSIDE RECORDS SUMMARY | ~2019-02-17 | XMS | Encounter Summary ---
Demographics + + + | Address | [address] | | | [place] [address] | + + + | Home Phone [...] Team Providers + +------+ + | Care Plant Buyer Name | Role | Phone | [...] | | | | | [address] [place], | [address] | | | | | [place] [address] | [phone] | | | | | [phone] | | | +--------+ + + + [...] [place] | | | | | | [address] | | | | | | [phone] | | | | | | | | +--------+---------+ + + + | 02/26/ | Office | Urology | Lillie Fowler | | | 2018 | Visit | | [address] | | | | | | [address] | | | | | | [place] | | | | | | [address] | | | | | | [phone] | | | | | | | | +--------+---------+ + + + | 03/16/ | Office | Neurology | Theresa, | | | 2018 | Visit | | [address] | | | | | | [address] [place], | | | | | | [place] [address] | | | | | | [phone] | | | | | | | | +--------+---------+ + + + | 04/12/ | Office | Primary Care | Massimo Ramos | | | 2019 | Visit | | MD [address] | | | | | | [place] | | | | | | [address] | | | | | | | | +--------+---------+ + + + | 10/03/ | Office | Neurology | Fabián Carias MD | | | 2019 | Visit | | [address] | | | | | | [place] | | | | | | [address] | | | | | | | [...] | | | care | | | Manufacturing Coordinator-C | | | | | | [...] | | | care | | | Manufacturing Coordinator-C | | | | | | [...] | | | care | | | Manufacturing Coordinator-C | | | | | | [...] | | | care | | | Manufacturing Coordinator-C | | | | | | | linical | + +--------+ +---+-----+ + + + | Note: Pt will | | check CBG's daily x1 | | Pt will take Lantis as | | prescribed | + + documented as of this encounter Visit Diagnoses Not on filedocumented in this encounter"
--- OUTSIDE RECORDS SUMMARY | ~2019-02-17 | XMS | Encounter Summary ---
Demographics + + + | Address | [address] | | | [place] [address] | + + + | Home Phone [...] Providers + +------+ + | Care Plastic Surgery Nurse Name | Role | Phone | [...] Medication Refill | | 2018 | | [facility] | DO [address] | | | | | [facility] [address] | [facility] [place] | | | | | [address] [place], | [address] | | | | | [place] [address] | [phone] | | | | | [phone] | | | +--------+ + + + [...] [place] | | | | | | [address] | | | | | | [phone] | | | | | | | | +--------+---------+ + + + | 02/26/ | Office | Urology | Lillie Fowler | | | 2018 | Visit | | [address] | | | | | | [address] | | | | | | [place], [place] | | | | | | [address] | | | | | | [phone] | | | | | | | | +--------+---------+ + + + | 03/16/ | Office | Neurology | Theresa, | | | 2018 | Visit | | [address] | | | | | | [address] [place], | | | | | | [place] [address] | | | | | | [phone] | | | | | | | | +--------+---------+ + + + | 04/12/ | Office | Primary Care | Massimo Ramos Pedro Luis | | | 2019 | Visit | | MD [address] | | | | | | [place] | | | | | | [address] | | | | | | | | +--------+---------+ + + + | 10/03/ | Office | Neurology | Fabián Carias MD | | | 2019 | Visit | | [address] | | | | | | [place] | | | | | | [address] | | | | | | | [...] | | | care | | | Anode Worker-C | | | | | | [...] | | | care | | | Anode Worker-C | | | | | | [...] | | | care | | | Anode Worker-C | | | | | | [...] | | | care | | | Anode Worker-C | | | | | | [...]
--- OUTSIDE RECORDS SUMMARY | ~2019-02-17 | XMS | Encounter Summary ---
Demographics + + + | Address | [address] | | | [place] [address] | + + + | Home Phone [...] Providers + +------+ + | Care Cnc Mechanic Name | Role | Phone | [...] | | | | | [address] [place], | [address] | | | | | [place] [address] | [phone] | | | | | [phone] | | | +--------+--------+ + + + [...] [place] | | | | | | [address] | | | | | | [phone] | | | | | | | | +--------+---------+ + + + | 02/26/ | Office | Urology | Lillie Fowler | | | 2018 | Visit | | [address] | | | | | | [address] | | | | | | [place], [place] | | | | | | [address] | | | | | | [phone] | | | | | | | | +--------+---------+ + + + | 03/16/ | Office | Neurology | Theresa, | | | 2018 | Visit | | [address] | | | | | | [address] [place], | | | | | | [place] [address] | | | | | | [phone] | | | | | | | | +--------+---------+ + + + | 04/12/ | Office | Primary Care | Massimo Ramos | | | 2019 | Visit | | MD Fer [address] | | | | | | [place] | | | | | | [address] | | | | | | | | +--------+---------+ + + + | 10/03/ | Office | Neurology | Fabián Carias MD | | | 2019 | Visit | | [address] | | | | | | [place] | | | | | | [address] | | | | | | | [...] | | | care | | | Grounds Caretaker-C | | | | | | | [...] | | | care | | | Grounds Caretaker-C | | | | | | | [...] | | | care | | | Grounds Caretaker-C | | | | | | | [...] | | | care | | | Grounds Caretaker-C | | | | | | | [...] | | unspecified | + + | 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
--- OUTSIDE RECORDS SUMMARY | ~2019-02-17 | XMS | Encounter Summary ---
Demographics + + + | Address | [address] | | | [place] [address] | + + + | Home Phone [...] Providers + +------+ + | Care Rn Enterostomal Name | Role | Phone | + [...] | | [address] [place], | [address] | | | | | [place] [address] | [phone] | | | | | [phone] | | | +--------+ + + + [...] [place] | | | | | | [address] | | | | | | [phone] | | | | | | | | +--------+---------+ + + + | 02/26/ | Office | Urology | Lillie Fowler | | | 2018 | Visit | | [address] | | | | | | [address] | | | | | | [place], [place] | | | | | | [address] | | | | | | [phone] | | | | | | | | +--------+---------+ + + + | 03/16/ | Office | Neurology | Theresa, | | | 2018 | Visit | | [address] | | | | | | [address] [place], | | | | | | [place] [address] | | | | | | [phone] | | | | | | | | +--------+---------+ + + + | 04/12/ | Office | Primary Care | Massimo Ramos | | | 2019 | Visit | | MD Fer [address] | | | | | | [address] [place], [place] | | | | | | [address] | | | | | | | | +--------+---------+ + + + | 10/03/ | Office | Neurology | Fabián Carias MD | | | 2019 | Visit | | [address] | | | | | | [place] | | | | | | [address] | | | | | | | [...] | | | care | | | Reinforced Steel Placing Supervisor-C | | | | | | [...] | | | care | | | Reinforced Steel Placing Supervisor-C | | | | | | [...] | | | care | | | Reinforced Steel Placing Supervisor-C | | | | | | [...] | | | care | | | Reinforced Steel Placing Supervisor-C | | | | | | | linical | + +--------+ +---+-----+ + + + | Note: Pt will | | check CBG's daily x1 | | Pt will take Lantis as | | prescribed | + + documented as of this encounter Visit Diagnoses Not on filedocumented in this encounter"
--- OUTSIDE RECORDS SUMMARY | ~2019-02-17 | XMS | Encounter Summary ---
Demographics + + + | Address | [address] | | | [place] [address] | + + + | Home Phone [...] Providers + +------+ + | Care Box Toe Cutter Name | Role | Phone | [...] | | | | | Mediastinal | English | [address] | | | | | | MD Satya | [place], | | | | | lymphadenopa | [address] | [place] [address] | | | | | thy | [address] | Phone: | | | | | Procedures | [place], [place] | [phone] | | | | | CT Chest | [address] | Fax: | | | | | Abdomen | Phone: | [phone] | | | | | Pelvis w | [phone] | | | | | | Contrast | Fax: | | | | | | | [phone] | | +--------+--------+ + + + + [...] [place] | | | | | | [address] | [address] | | | | | | Phone: | Phone: | | | | | | [phone] | [phone] | | | | | | Fax: | Fax: | | | | | | [phone] | [phone] | + + + + + + + Encounter Details +--------+ + + + + | Date | Type | Department | Care Team | Description | +--------+ + + + + | 10/27/ | Hospital | [facility] | Rigoberto, English | Mediastinal | | 2019 | Encounter | HOSPITAL HEMATOLOGY | MD [address] | lymphadenopathy | | | | ONCOLOGY [address] | [address] | (Primary Dx) | | | | DR [place], [place] | [place], [place] | | | | | [address] | [address] | | | | | [phone] | [phone] | | | | | | | [...] Name/Age/: Geraldo Mcfadden 78 y.o. 1940 CSN: [id number] Date of service: 10/27/2018 Provider: Arnaud Franklin [...] direct way would be referral to a software engineering project manager for bronchoscopic biopsy of a subcarinal node. A drawback to this would be the need to elizabeth (likely [facility] or [facility] with an overnight stay) and undergoing an [...] a standard meal [facility]. Routine imaging over 4 hours [...] [place] | | | | | | [address] | | | | | | [phone] | | | | | | | | +--------+---------+ + + + | 02/26/ | Office | Urology | Lillie Fowler | | | 2018 | Visit | | [address] | | | | | | [address] | | | | | | [place] | | | | | | [address] | | | | | | [phone] | | | | | | | | +--------+---------+ + + + | 03/16/ | Office | Neurology | Theresa, | | | 2018 | Visit | | [address] | | | | | | [address] [place], | | | | | | [place] [address] | | | | | | [phone] | | | | | | | | +--------+---------+ + + + | 04/12/ | Office | Primary Care | Massimo Ramos | | | 2019 | Visit | | MD Fer [address] | | | | | | [place] | | | | | | [address] | | | | | | | | +--------+---------+ + + + | 10/03/ | Office | Neurology | Fabián Carias MD | | | 2019 | Visit | | [address] | | | | | | [place] | | | | | | [address] | | | | | | | [...] | | care | | | Assistant County Engineer-C | | | | | | [...] | | care | | | Assistant County Engineer-C | | | | | | [...] | | care | | | Assistant County Engineer-C | | | | | | [...] | | care | | | Assistant County Engineer-C | | | | | | [...] | mL/min/1.73m2 | [facility] | | | [facility] | [facility],ESTIMATED | | [facility] | | | | mL/min/1.03n8Aipj than | | REGIONAL | | | [...] + + | [facility] [facility] | [address] | [place] [address] | [phone] | | [facility] | | | | | MEDICAL [...] | | Basophils | | K/uL | [facility] | | | | | | HOSPITAL [...] + + | [facility] | [address] [facility] | [place] [address] | [phone] | | H[facility] | | | [...]
--- OUTSIDE RECORDS SUMMARY | ~2019-02-17 | XMS | Encounter Summary ---
Demographics + + + | Address | [address] | | | [place] [address] | + + + | Home Phone | | + + + | Preferred Language | Unknown | + + + | Marital Status | | + + + | Restorationism Affiliation | 1025 | + + + | Race | Unknown | + + + | Ethnic Group | Unknown | + + + Author + + + | Author | [facility] | | | and [place] | + + + | Organization | [facility] [...] Team Providers + +------+ + | Care Ethics Manager Name | Role | Phone | [...] | | [address] [place], | [address] | | | | | [place] [address] | [phone] | | | | | [phone] | | | +--------+ + + + [...] [place] | | | | | | [address] | | | | | | [phone] | | | | | | | | +--------+---------+ + + + | 02/26/ | Office | Urology | Lillie Fowler | | | 2018 | Visit | | [address] | | | | | | [address] | | | | | | [place], [place] | | | | | | [address] | | | | | | [phone] | | | | | | | | +--------+---------+ + + + | 03/16/ | Office | Neurology | Theresa, | | | 2018 | Visit | | [address] | | | | | | [address] [place], | | | | | | [place] [address] | | | | | | [phone] | | | | | | | | +--------+---------+ + + + | 04/12/ | Office | Primary Care | Massimo Ramos | | | 2019 | Visit | | MD Fer [address] | | | | | | [address] [place], [place] | | | | | | [address] | | | | | | | | +--------+---------+ + + + | 10/03/ | Office | Neurology | Fabián Carias MD | | | 2019 | Visit | | [address] | | | | | | [place] | | | | | | [address] | | | | | | | [...] | | care | | | Sales Representative Leather Goods-C | | | | | | | [...] | | care | | | Sales Representative Leather Goods-C | | | | | | | [...] | | care | | | Sales Representative Leather Goods-C | | | | | | | [...] | | care | | | Sales Representative Leather Goods-C | | | | | | | linical | + +--------+ +---+-----+ + + + | Note: Pt will | | check CBG's daily x1 | | Pt will take Lantis as | | prescribed | + + documented as of this encounter Visit Diagnoses Not on filedocumented in this encounter"
--- OUTSIDE RECORDS SUMMARY | ~2019-02-17 | XMS | Encounter Summary ---
Demographics + + + | Address | [address] | | | [place] [address] | + + + | Home Phone [...] Team Providers + +------+ + | Care Fiberglasser Name | Role | Phone | + [...] CLINIC [address] | [facility], [place] | | | | | [address] [place], | [address] | | | | | [place] [address] | [phone] | | | | | [phone] | | | +--------+--------+ + + + [...] [place] | | | | | | [address] | | | | | | [phone] | | | | | | | | +--------+---------+ + + + | 02/26/ | Office | Urology | Lillie Fowler | | | 2018 | Visit | | [address] | | | | | | [address] | | | | | | [place], [place] | | | | | | [address] | | | | | | [phone] | | | | | | | | +--------+---------+ + + + | 03/16/ | Office | Neurology | Theresa, | | | 2018 | Visit | | [address] | | | | | | [address] [place], | | | | | | [place] [address] | | | | | | [phone] | | | | | | | | +--------+---------+ + + + | 04/12/ | Office | Primary Care | Massimo Ramos | | | 2019 | Visit | | MD Fer [address] | | | | | | [place] | | | | | | [address] | | | | | | | | +--------+---------+ + + + | 10/03/ | Office | Neurology | Fabián Carias MD | | | 2019 | Visit | | [address] | | | | | | [place] | | | | | | [address] | | | | | | | [...] | | care | | | Hand Cloth Examiner-C | | | | | | [...] | | care | | | Hand Cloth Examiner-C | | | | | | [...] | | care | | | Hand Cloth Examiner-C | | | | | | [...] | | care | | | Hand Cloth Examiner-C | | | | | | | linical | + +--------+ +---+-----+ + + + | Note: Pt will | | check CBG's daily x1 | | Pt will take Lantis as | | prescribed | + + documented as of this encounter Visit Diagnoses Not on filedocumented in this encounter"
--- OUTSIDE RECORDS SUMMARY | ~2019-02-17 | XMS | Encounter Summary ---
Demographics + + + | Address | [address] | | | [place] [address] | + + + | Home Phone [...] Team Providers + +------+ + | Care Bull Bucker Name | Role | Phone | + [...] | Visit | HOSPITAL NEUROLOGY | Hank, TOUR SALES REPRESENTATIVE [address] | status, unspecified | | | | CLINIC [address] | [address] [facility] [place], | altered mental | | | | [address] [place] [place], | [place] [address] | status type (Primary | | | | [place] [address] | [phone] | Dx) | | | | [phone] | | | +--------+---------+ + + + [...] [place] | | | | | | [address] | | | | | | [phone] | | | | | | | | +--------+---------+ + + + | 02/26/ | Office | Urology | Lillie Fowler | | | 2018 | Visit | | [address] | | | | | | [address] | | | | | | [place], [place] | | | | | | [address] | | | | | | [phone] | | | | | | | | +--------+---------+ + + + | 03/16/ | Office | Neurology | Theresa, | | | 2018 | Visit | | [address] | | | | | | [address] [place], | | | | | | [place] [address] | | | | | | [phone] | | | | | | | | +--------+---------+ + + + | 04/12/ | Office | Primary Care | Massimo Ramos Pedro Luis | | | 2019 | Visit | | MD Fer [address] | | | | | | [address] [place] | | | | | | [address] | | | | | | | | +--------+---------+ + + + | 10/03/ | Office | Neurology | Fabián Carias MD | | | 2019 | Visit | | [address] | | | | | | [place] | | | | | | [address] | | | | | | | [...] | | | care | | | Underwriting Sales Representative-C | | | | | [...] | | | care | | | Underwriting Sales Representative-C | | | | | [...] | | | care | | | Underwriting Sales Representative-C | | | | | [...] | | | care | | | Underwriting Sales Representative-C | | | | | [...]
--- OUTSIDE RECORDS SUMMARY | ~2019-02-17 | XMS | Encounter Summary ---
Demographics + + + | Address | [address] | | | [place] [address] | + + + | Home Phone [...] Team Providers + +------+ + | Care Back Gray Cloth Washer Name | Role | Phone | [...] | | | | type | [place] [address] | [place] [address] | | | | | Diaphoresis | Phone: | Phone: | | | | | | [phone] | [phone] | | | | | LEUKOCYTOSIS | Fax: | Fax: | | | | | , | [phone] | [phone] | | | | | UNSPECIFIED | | | | | | | TYPE | | | | | | | Procedures | | | | | | | New | | | | | | | Outpatient | | | | | | | visit | | | | | | | [address] | | | +--------+ + + + [...] | [address] [place], [place] | [place] [address] | Diaphoresis; | | | | [address] | [phone] | Weakness of back | | | | [phone] | | | +--------+ + + + [...] | | | | use of insulin ([facility]) | | | | | | + [...] | | | | use of insulin ([facility]) | | | | | | + [...] | | | | | | disease, emt intermediate | | | | | | [...] [place] | | | | | | [address] | | | | | | [phone] | | | | | | | | +--------+---------+ + + + | 02/26/ | Office | Urology | Lillie Fowler | | | 2018 | Visit | | [address] | | | | | | [address] | | | | | | [place], [place] | | | | | | [address] | | | | | | [phone] | | | | | | | | +--------+---------+ + + + | 03/16/ | Office | Neurology | Theresa, | | | 2018 | Visit | | [address] | | | | | | [address] [place], | | | | | | [place] [address] | | | | | | [phone] | | | | | | | [...] [place] | | | | | | [address] | | | | | | | [...] | | | care | | | Felt Finishing Supervisor-C | | | | | | [...] | | | care | | | Felt Finishing Supervisor-C | | | | | | [...] | | | care | | | Felt Finishing Supervisor-C | | | | | | [...] | | | care | | | Felt Finishing Supervisor-C | | | | | | [...] J?MRN: | | | | | | [id number] | | | [id number] | | | ecurit | | | [...] | | | [place] | | | Cryptographer | | | al | | | [...] - 1.030 | [facility] | | | [place] | | | [facility] | | | [...] + + | [facility] | [address] | [place] [address] | [phone] | | HOSPITAL [facility] | | | [...] + + | [facility] | [address] | [place] [address] | [phone] | | HOSPITAL LAB[facility]ATORY | | | | + + + + + ECG 12 lead (02/28/2018 10:43 AM PST) + + | Specimen | + + | | + + + + + | Narrative | Performed At | + + + | Heart Rate: 74 | [facility] | | bpmQRS Interval: 98 msQT Interval: 380 msQTC Interval: 422 msP [place]: | TRACEMASTER | | 9 degQRS [place]: -21 degT Wave [place]: 11 degP-R Interval: 196 msec- | | | BORDERLINE ECG -SINUS RHYTHM [Now Present]BORDERLINE LEFT AXIS | | | DEVIATION [Now Present]CONSIDER RVH OR POSTERIOR INFARCT [Less | | | Prom.]SIGNIFICANT RHYTHM AND ECG CONTOUR CHANGES | | |T Wave [place]: 11 deg | | |P-R Interval: 196 [...] + + | [facility] | [address] | [place] [address] | [phone] | | HOSPITAL LAB[facility]ORY | | | [...] + + | [facility] | [address] | [place] [address] | [phone] | | HOSPITAL LAB[facility]ATORY | | | [...] | mL/min/1.73m2 | [facility] | | | ARMENIAN | RATE,ESTIMATED | | HOSPITAL | | | | mL/min/1.19r8Ugpj than | | LABORATORY | | | [...] + + | [facility] | [address] | [place] [address] | [phone] | | HOSPITAL LAB[facility]ORY | | | [...] + + | [facility] | [address] | [place] [address] | [phone] | | HOSPITAL LAB[facility]ORY | | | [...]
--- OUTSIDE RECORDS SUMMARY | ~2019-02-17 | XMS | Encounter Summary ---
Demographics + + + | Address | [address] | | | [place] [address] | + + + | Home Phone [...] Team Providers + +------+ + | Care Instrument Sterilizer Name | Role | Phone | + [...] | DO [address] [place] | (Major) | | | | [facility] | [facility], [place] | | | | | [address] [place], | [address] | | | | | [place] [address] | [phone] | | | | | [phone] | | | +--------+ + + + [...] [place] | | | | | | [address] | | | | | | [phone] | | | | | | | | +--------+---------+ + + + | 02/26/ | Office | Urology | Lillie Fowler | | | 2018 | Visit | | [address] | | | | | | [address] | | | | | | [place], [place] | | | | | | [address] | | | | | | [phone] | | | | | | | | +--------+---------+ + + + | 03/16/ | Office | Neurology | Theresa, | | | 2018 | Visit | | [address] | | | | | | [address] [place], | | | | | | [place] [address] | | | | | | [phone] | | | | | | | | +--------+---------+ + + + | 04/12/ | Office | Primary Care | Massimo Ramos | | | 2019 | Visit | | MD Fer [address] | | | | | | [place] | | | | | | [address] | | | | | | | | +--------+---------+ + + + | 10/03/ | Office | Neurology | Fabián Carias MD | | | 2019 | Visit | | [address] | | | | | | [place] | | | | | | [address] | | | | | | | [...] | | | care | | | Classification Clerk-C | | | | | | [...] | | | care | | | Classification Clerk-C | | | | | | [...] | | | care | | | Classification Clerk-C | | | | | | [...] | | | care | | | Classification Clerk-C | | | | | | | linical | + +--------+ +---+-----+ + + + | Note: Pt will | | check CBG's daily x1 | | Pt will take Lantis as | | prescribed | + + documented as of this encounter Visit Diagnoses Not on filedocumented in this encounter"
--- OUTSIDE RECORDS SUMMARY | ~2019-02-17 | XMS | Encounter Summary ---
Demographics + + + | Address | [address] | | | [place] [address] | + + + | Home Phone [...] Team Providers + +------+ + | Care Moshgiach Name | Role | Phone | + +------+ + | Ryan Gutiérrez MD | PCP | | + +------+ + Encounter Details +--------+ + + + + | Date | Type | Department | Care Team | Description | +--------+ + + + + | 04/03/ | [facility] | Scott De Oliveira | | | 2016 | Encounter | HOSPITAL GENER[facility] | DO [address] | | | | | SURGERY [address] | [address] | | | | | [address] [place], | [facility], [place] | | | | | [place] [address] | [address] | | | | | [phone] | [phone] | | | | | | | [...] [place] | | | | | | [address] | | | | | | [phone] | | | | | | | | +--------+---------+ + + + | 02/26/ | Office | Urology | Lillie Fowler | | | 2018 | Visit | | [address] | | | | | | [address] | | | | | | [place] | | | | | | [address] | | | | | | [phone] | | | | | | | | +--------+---------+ + + + | 03/16/ | Office | Neurology | Theresa, | | | 2018 | Visit | | [address] | | | | | | [address] [place], | | | | | | [place] [address] | | | | | | [phone] | | | | | | | | +--------+---------+ + + + | 04/12/ | Office | Primary Care | Massimo Ramos | | | 2019 | Visit | | MD Fer [address] | | | | | | [place] | | | | | | [address] | | | | | | | | +--------+---------+ + + + | 10/03/ | Office | Neurology | Fabián Carias MD | | | 2019 | Visit | | [address] | | | | | | [place] | | | | | | [address] | | | | | | | [...] | | | care | | | Fluxer-C | | | | | | | [...] | | | care | | | Fluxer-C | | | | | | | [...] | | | care | | | Fluxer-C | | | | | | | [...] | | | care | | | Fluxer-C | | | | | | | linical | + +--------+ +---+-----+ + + + | Note: Pt will | | check CBG's daily x1 | | Pt will take Lantis as | | prescribed | + + documented as of this encounter Visit Diagnoses Not on filedocumented in this encounter"
--- OUTSIDE RECORDS SUMMARY | ~2019-02-17 | XMS | Encounter Summary ---
Demographics + + + | Address | [address] | | | [place] [address] | + + + | Home Phone [...] Team Providers + +------+ + | Care Steel Sampler Name | Role | Phone | + [...] | | | | | [address] [place], | [address] | | | | | [place] [address] | [phone] | | | | | [phone] | | | +--------+--------+ + + + [...] [place] | | | | | | [address] | | | | | | [phone] | | | | | | | | +--------+---------+ + + + | 02/26/ | Office | Urology | Lillie Fowler | | | 2018 | Visit | | [address] | | | | | | [address] | | | | | | [place], [place] | | | | | | [address] | | | | | | [phone] | | | | | | | | +--------+---------+ + + + | 03/16/ | Office | Neurology | Theresa, | | | 2018 | Visit | | [address] | | | | | | [address] [place], | | | | | | [place] [address] | | | | | | [phone] | | | | | | | | +--------+---------+ + + + | 04/12/ | Office | Primary Care | Massimo Ramos | | | 2019 | Visit | | MD Fer [address] | | | | | | [place] | | | | | | [address] | | | | | | | | +--------+---------+ + + + | 10/03/ | Office | Neurology | Fabián Carias MD | | | 2019 | Visit | | [address] | | | | | | [place] | | | | | | [address] | | | | | | | [...] | | | care | | | Milk Bottling 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-C | | | | | [...] | | | care | | | Milk Bottling 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-C | | | | | [...] | | | care | | | Milk Bottling 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-C | | | | | [...] | | | care | | | Milk Bottling 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-C | | | | | | | linical | + +--------+ +---+-----+ + + + | Note: Pt will | | check CBG's daily x1 | | Pt will take Lantis as | | prescribed | + + documented as of this encounter Visit Diagnoses Not on filedocumented in this encounter"
--- OUTSIDE RECORDS SUMMARY | ~2019-02-17 | XMS | Encounter Summary ---
Demographics + + + | Address | [address] | | | [place] [address] | + + + | Home Phone [...] Team Providers + +------+ + | Care Plow Shaker Name | Role | Phone | + [...] | | CENTER [address] | [facility] | (Primary Dx) | | | | DR [place], [place] | [employer], [employer] [address] | | | | | [address] | [phone] | | | | | [phone] | | | +--------+ + + + [...] | | | | | | disease, roasterman | | | | | | | [...] [place] | | | | | | [address] | | | | | | [phone] | | | | | | | | +--------+---------+ + + + | 02/26/ | Office | Urology | Lillie Fowler | | | 2018 | Visit | | [address] | | | | | | [address] | | | | | | [place] | | | | | | [address] | | | | | | [phone] | | | | | | | | +--------+---------+ + + + | 03/16/ | Office | Neurology | Theresa, | | | 2018 | Visit | | [address] | | | | | | [address] [place], | | | | | | [place] [address] | | | | | | [phone] | | | | | | | | +--------+---------+ + + + | 04/12/ | Office | Primary Care | Massimo Ramos | | | 2019 | Visit | | MD Fer [address] | | | | | | [place] | | | | | | [address] | | | | | | | | +--------+---------+ + + + | 10/03/ | Office | Neurology | Fabián Carias MD | | | 2019 | Visit | | [address] | | | | | | [place] | | | | | | [address] | | | | | | | [...] | | | care | | | Miter Operator-C | | | | | | [...] | | | care | | | Miter Operator-C | | | | | | [...] | | | care | | | Miter Operator-C | | | | | | [...] | | | care | | | Miter Operator-C | | | | | | [...] J?MRN: | | | | | | [id number] | | | [id number] | | | ecurit | | | [...] IMPRESSION:No acute cardiopulmonary | | process.Dictated by: Tryo Lawrence | | 6:33 AM | | [...] | | HOSPITAL | | | | mL/min/1.83o3Thnc than | | LABORATORY | | | [...] + + | [facility] | [address] | [place] [address] | [phone] | | HOSPITAL LABORATORY | | | [...] + + | [facility] | [address] | [place] [address] | [phone] | | HOSPITAL LABORATORY | | | [...]
--- OUTSIDE RECORDS SUMMARY | ~2019-02-17 | XMS | Encounter Summary ---
Demographics + + + | Address | [address] | | | [place] [address] | + + + | Home Phone [...] Team Providers + +------+ + | Care Reagent Tender Name | Role | Phone | [...] | | [place], [place] | [place], [place] | | | | | [address] | [address] | | | | | [phone] | | | +--------+ + + + [...] [place] | | | | | | [address] | | | | | | [phone] | | | | | | | | +--------+---------+ + + + | 02/26/ | Office | Urology | Llilie Fowler | | | 2018 | Visit | | [address] | | | | | | [address] | | | | | | [place] | | | | | | [address] | | | | | | [phone] | | | | | | | | +--------+---------+ + + + | 03/16/ | Office | Neurology | Theresa, | | | 2018 | Visit | | [address] | | | | | | [address] [place], | | | | | | [place] [address] | | | | | | [phone] | | | | | | | | +--------+---------+ + + + | 04/12/ | Office | Primary Care | Massimo Ramos | | | 2019 | Visit | | MD Fer [address] | | | | | | [place] | | | | | | [address] | | | | | | | | +--------+---------+ + + + | 10/03/ | Office | Neurology | Fabián Carias MD | | | 2019 | Visit | | [address] | | | | | | [place] | | | | | | [address] | | | | | | | [...] | | care | | | Public Relations Coordinator-C | | | | | [...] | | care | | | Public Relations Coordinator-C | | | | | [...] | | care | | | Public Relations Coordinator-C | | | | | [...] | | care | | | Public Relations Coordinator-C | | | | | | | linical | + +--------+ +---+-----+ + + + | Note: Pt will | | check CBG's daily x1 | | Pt will take Lantis as | | prescribed | + + documented as of this encounter Visit Diagnoses Not on filedocumented in this encounter"
--- OUTSIDE RECORDS SUMMARY | ~2019-02-17 | XMS | Encounter Summary ---
Demographics + + + | Address | [address] | | | [place] [address] | + + + | Home Phone [...] Providers + +------+ + | Care Hot Room Attendant Name | Role | Phone | + +------+ + | Ryan Gutiérrez MD | PCP | | + +------+ + Encounter Details +--------+ + + + + | Date | Type | Department | Care Team | Description | +--------+ + + + + | 10/31/ | Hospital | [facility] | Scott De Oliveira | | | 2016 | Encounter | HOSPITAL MED SURG | [address] | | | | | [address] [place] | [address] | | | | | [place], [place] | [place], [place] | | | | | [address] | [address] | | | | | [phone] | [phone] | | | | | | | [...] [place] | | | | | | [address] | | | | | | [phone] | | | | | | | | +--------+---------+ + + + | 02/26/ | Office | Urology | Lillie Fowler | | | 2018 | Visit | | [address]IE [address] | | | | | | [address] | | | | | | [place] | | | | | | [address] | | | | | | [phone] | | | | | | | | +--------+---------+ + + + | 03/16/ | Office | Neurology | Theresa, | | | 2018 | Visit | | [address] | | | | | | [address] [place], | | | | | | [place] [address] | | | | | | [phone] | | | | | | | | +--------+---------+ + + + | 04/12/ | Office | Primary Care | Massimo Ramos | | | 2019 | Visit | | MD Fer [address] | | | | | | [place] | | | | | | [address] | | | | | | | | +--------+---------+ + + + | 10/03/ | Office | Neurology | Fabián Carias MD | | | 2019 | Visit | | [address] | | | | | | [place] | | | | | | [address] | | | | | | | [...] | | | care | | | Japanese Tutor-C | | | | | | | [...] | | | care | | | Japanese Tutor-C | | | | | | | [...] | | | care | | | Japanese Tutor-C | | | | | | | [...] | | | care | | | Japanese Tutor-C | | | | | | | [...] + + + | HEMOGLOBIN AND | Routin | 11/01/2015 | | Results for this | | HEMATOCRIT | e | 11:26 AM | | procedure are in the | | | | PDT | | results section. | + +--------+ + + + documented in this encounter Results Hemoglobin and Hematocrit (11/01/2015 11:26 AM PDT) + +-------+ + + + | Component | Value | Ref Range | Performed | Pathologist | | | | | At | Signature | + +-------+ + + + | HGB, | 13.4 | 13.1 - 17.4 | EXTERNAL | | | External | | g/dL | LAB | | + +-------+ + + + | HCT, | 39.4 | 39.0 - 51.9 % | EXTERNAL | | | External | | | LAB | | + +-------+ + + + | MCHC | 34 | 32.0 - 36.9 | EXTERNAL | [...]
--- OUTSIDE RECORDS SUMMARY | ~2019-02-17 | XMS | Encounter Summary ---
Demographics + + + | Address | [address] | | | [place] [address] | + + + | Home Phone [...] Team Providers + +------+ + | Care Instruments Sales Representative Name | Role | Phone [...] | | | | | [address] [place], | [address] | | | | | [place] [address] | [phone] | | | | | [phone] | | | +--------+ + + + [...] [place] | | | | | | [address] | | | | | | [phone] | | | | | | | | +--------+---------+ + + + | 02/26/ | Office | Urology | Lillie Fowler | | | 2018 | Visit | | [address]IE [address] | | | | | | [address] | | | | | | [place], [place] | | | | | | [address] | | | | | | [phone] | | | | | | | | +--------+---------+ + + + | 03/16/ | Office | Neurology | Theresa, | | | 2018 | Visit | | [address] | | | | | | [address] [place], | | | | | | [place] [address] | | | | | | [phone] | | | | | | | | +--------+---------+ + + + | 04/12/ | Office | Primary Care | Massimo Ramos | | | 2019 | Visit | | MD Fer [address] | | | | | | [place] | | | | | | [address] | | | | | | | | +--------+---------+ + + + | 10/03/ | Office | Neurology | Fabián Carias MD | | | 2019 | Visit | | [address] | | | | | | [place] | | | | | | [address] | | | | | | | [...] | | | care | | | Locate Technician-C | | | | | | [...] | | | care | | | Locate Technician-C | | | | | | [...] | | | care | | | Locate Technician-C | | | | | | [...] | | | care | | | Locate Technician-C | | | | | | [...]
--- OUTSIDE RECORDS SUMMARY | ~2019-02-17 | XMS | Encounter Summary ---
Demographics + + + | Address | [address] | | | [place] [address] | + + + | Home Phone [...] Providers + +------+ + | Care Manager Sales Training Name | Role | Phone | + [...] | | | [facility] | Knife Grinder-Clinical | | | | | [facility] [place], | | | | | | [place] [address] | | | | | | [phone] | | | +--------+ + + + [...] [place] | | | | | | [address] | | | | | | [phone] | | | | | | | | +--------+---------+ + + + | 02/26/ | Office | Urology | Lillie Fowler | | | 2018 | Visit | | [address]IE [address] | | | | | | [address] | | | | | | [place], [place] | | | | | | [address] | | | | | | [phone] | | | | | | | | +--------+---------+ + + + | 03/16/ | Office | Neurology | Theresa, | | | 2018 | Visit | | [address] | | | | | | [address] [place], | | | | | | [place] [address] | | | | | | [phone] | | | | | | | | +--------+---------+ + + + | 04/12/ | Office | Primary Care | Massimo Ramos | | | 2019 | Visit | | MD Fer [address] | | | | | | [place] | | | | | | [address] | | | | | | | | +--------+---------+ + + + | 10/03/ | Office | Neurology | Fabián Carias MD | | | 2019 | Visit | | [address] | | | | | | [place] | | | | | | [address] | | | | | | | [...] | | | care | | | Knife Grinder-C | | | | | | [...] | | | care | | | Knife Grinder-C | | | | | | [...] | | | care | | | Knife Grinder-C | | | | | | [...] | | | care | | | Knife Grinder-C | | | | | | [...]
--- OUTSIDE RECORDS SUMMARY | ~2019-02-17 | XMS | Encounter Summary ---
Demographics + + + | Address | [address] | | | [place] [address] | + + + | Home Phone [...] Team Providers + +------+ + | Care Property Utilization Manager Name | Role | Phone | [...] call ) | | 2018 | | [facility] | DO [address] [place] | | | | | [facility] [address] | [facility], [place] | | | | | [address] [place], | [address] | | | | | [place] [address] | [phone] | | | | | [phone] | | | +--------+ + + + [...] [place] | | | | | | [address] | | | | | | [phone] | | | | | | | | +--------+---------+ + + + | 02/26/ | Office | Urology | Lillie Fowler | | | 2018 | Visit | | [address] | | | | | | [address] | | | | | | [place] | | | | | | [address] | | | | | | [phone] | | | | | | | | +--------+---------+ + + + | 03/16/ | Office | Neurology | Theresa, | | | 2018 | Visit | | [address] | | | | | | [address] [place], | | | | | | [place] [address] | | | | | | [phone] | | | | | | | | +--------+---------+ + + + | 04/12/ | Office | Primary Care | Massimo Ramos | | | 2019 | Visit | | MD Fer [address] | | | | | | [place] | | | | | | [address] | | | | | | | | +--------+---------+ + + + | 10/03/ | Office | Neurology | Fabián Carias MD | | | 2020 | Visit | | [address] | | | | | | [place], [place] | | | | | | [address] | | | | | | | [...] | | | care | | | Mcat Instructor-C | | | | | | [...] | | | care | | | Mcat Instructor-C | | | | | | [...] | | | care | | | Mcat Instructor-C | | | | | | [...] | | | care | | | Mcat Instructor-C | | | | | | | linical | + +--------+ +---+-----+ + + + | Note: Pt will | | check CBG's daily x1 | | Pt will take Lantis as | | prescribed | + + documented as of this encounter Visit Diagnoses Not on filedocumented in this encounter"
--- OUTSIDE RECORDS SUMMARY | ~2019-02-17 | XMS | Encounter Summary ---
Demographics + + + | Address | [address] | | | [place] [address] | + + + | Home Phone [...] Team Providers + +------+ + | Care Crumb Packer Name | Role | Phone | [...] | | | | 2 diabetes | [address] | [address] | | | | | mellitus | Phone: | [place] | | | | | with | [phone] | [place], [place] | | | | | diabetic | Fax: | [address] | | | | | polyneuropat | [phone] | Phone: | | | | | hy, with | | [phone] | | | | | long-term | | Fax: | | | | | current use | | [phone] | | | | | of insulin [...] 2019 | | [facility] | [address] [facility] | | | | | [facility]ICAL [facility] | [facility], [place] | | | | | [address] [place], | [address] | | | | | [place] [address] | [phone] | | | | | [phone] | | | +--------+ + + + [...] [place] | | | | | | [address] | | | | | | [phone] | | | | | | | | +--------+---------+ + + + | 02/26/ | Office | Urology | Lillie Fowler | | | 2018 | Visit | | [address]ILLIE Lopez [address] | | | | | | [address] | | | | | | [place], [place] | | | | | | [address] | | | | | | [phone] | | | | | | | | +--------+---------+ + + + | 03/16/ | Office | Neurology | Theresa, | | | 2018 | Visit | | [address] | | | | | | [address] [place], | | | | | | [place] [address] | | | | | | [phone] | | | | | | | | +--------+---------+ + + + | 04/12/ | Office | Primary Care | Massimo Ramos | | | 2019 | Visit | | MD Fer [address] | | | | | | [place] | | | | | | [address] | | | | | | | | +--------+---------+ + + + | 10/03/ | Office | Neurology | Fabián Carias MD | | | 2019 | Visit | | [address] | | | | | | [place] | | | | | | [address] | | | | | | | [...] | | | care | | | Pipeline Technician-C | | | | | | [...] | | | care | | | Pipeline Technician-C | | | | | | [...] | | | care | | | Pipeline Technician-C | | | | | | [...] | | | care | | | Pipeline Technician-C | | | | | | [...]
--- OUTSIDE RECORDS SUMMARY | ~2019-02-17 | XMS | Encounter Summary ---
Demographics + + + | Address | [address] | | | [place] [address] | + + + | Home Phone [...] Providers + +------+ + | Care Senior Mainframe Programmer Analyst Name | Role | Phone | [...] | | [place] | [place] [address] | | | | | [address] | [phone] | | | | | [phone] | | | +--------+ + + + [...] [place] | | | | | | [address] | | | | | | [phone] | | | | | | | | +--------+---------+ + + + | 02/26/ | Office | Urology | Malcolm Lillie | | | 2018 | Visit | | [address] | | | | | [address] | | | | | | [place] | | | | | | [address] | | | | | | [phone] | | | | | | | | +--------+---------+ + + + | 03/16/ | Office | Neurology | Theresa, | | | 2018 | Visit | | [address] | [address] [place], | | | | | | [place] [address] | | | | | | [phone] | | | | | | | | +--------+---------+ + + + | 04/12/ | Office | Primary Care | Massimo Ramos | | | 2019 | Visit | | [facility] [address] | | | | | | [place] | | | | | | [address] | | | | | | | | +--------+---------+ + + + | 10/03/ | Office | Neurology | Fabián Carias MD | | | 2019 | Visit | | [address] | | | | | | [place] | | | | | | [address] | | | | | | | [...] | | | Charilne M, | | dehydration | | complex | | | Case | | | | care | | | 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 JOB #: [id number] Digitally Released by: Howard | | | [...] | | | | | JOB #: [id number] | | Digitally Released by: Drew Lawrence [...] 3. | | | Cardiomegaly. JOB #: [id number] Digitally Released by: Howard | | | [...] | | | | | JOB #: [id number] | | Digitally Released by: Drew Lawrence | | | | | | Read By: DREW LAWRENCE MD | | Date: 12/25/2016 09:39 | | | + + documented in this encounter Visit Diagnoses Not on filedocumented in this encounter"
--- OUTSIDE RECORDS SUMMARY | ~2019-02-17 | XMS | Encounter Summary ---
Demographics + + + | Address | [address] | | | [place] [address] | + + + | Home Phone [...] Providers + +------+ + | Care Cable Coverer Name | Role | Phone | [...] | DME | | 2019 | | [facility] | DO [address] | | | | | [facility] [address] | [place], [place] | | | | | [address] [place], | [address] | | | | | [place] [address] | [phone] | | | | | [phone] | | | +--------+ + + + [...] [place] | | | | | | [address] | | | | | | [phone] | | | | | | | | +--------+---------+ + + + | 02/26/ | Office | Urology | Lillie Fowler | | | 2018 | Visit | | [address] | | | | | | [address] | | | | | | [place], [place] | | | | | | [address] | | | | | | [phone] | | | | | | | | +--------+---------+ + + + | 03/16/ | Office | Neurology | Theresa, | | | 2018 | Visit | | [address] | | | | | | [address] [place], | | | | | | [place] [address] | | | | | | [phone] | | | | | | | | +--------+---------+ + + + | 04/12/ | Office | Primary Care | Massimo Ramos | | | 2019 | Visit | | MD Fer [address] | | | | | | [address] [place], [place] | | | | | | [address] | | | | | | | | +--------+---------+ + + + | 10/03/ | Office | Neurology | Fabián Carias MD | | | 2019 | Visit | | [address] | | | | | | [place] | | | | | | [address] | | | | | | | [...] | | | care | | | Hospice Community Liaison-C | | | | | | [...] | | | care | | | Hospice Community Liaison-C | | | | | | [...] | | | care | | | Hospice Community Liaison-C | | | | | | [...] | | | care | | | Hospice Community Liaison-C | | | | | | [...]
--- OUTSIDE RECORDS SUMMARY | ~2019-02-17 | XMS | Encounter Summary ---
Demographics + + + | Address | [address] | | | [place] [address] | + + + | Home Phone [...] Team Providers + +------+ + | Care Under Presser Name | Role | Phone | [...] | | [address] [place], [place] | [place] [address] | | | | | [address] | [phone] | | | | | [phone] | | | +--------+ + + + [...] [place] | | | | | | [address] | | | | | | [phone] | | | | | | | | +--------+---------+ + + + | 02/26/ | Office | Urology | Lillie Fowler | | | 2018 | Visit | | [address] | | | | | | [address] | | | | | | [place], [place] | | | | | | [address] | | | | | | [phone] | | | | | | | | +--------+---------+ + + + | 03/16/ | Office | Neurology | Theresa, | | | 2018 | Visit | | [address] | | | | | | [address] [place], | | | | | | [place] [address] | | | | | | [phone] | | | | | | | | +--------+---------+ + + + | 04/12/ | Office | Primary Care | Massimo Ramos | | | 2019 | Visit | | MD Fer [address] | | | | | | [place] | | | | | | [address] | | | | | | | | +--------+---------+ + + + | 10/03/ | Office | Neurology | Fabián Carias MD | | | 2019 | Visit | | [address] | | | | | | [place] | | | | | | [address] | | | | | | | [...] | | | care | | | Men'S Swim Coach-C | | | | | | | [...] | | | care | | | Men'S Swim Coach-C | | | | | | | [...] | | | care | | | Men'S Swim Coach-C | | | | | | | [...] | | | care | | | Men'S Swim Coach-C | | | | | | | linical | + +--------+ +---+-----+ + + + | Note: Pt will | | check CBG's daily x1 | | Pt will take Lantis as | | prescribed | + + documented as of this encounter Visit Diagnoses Not on filedocumented in this encounter"
--- OUTSIDE RECORDS SUMMARY | ~2019-02-17 | XMS | Encounter Summary ---
Demographics + + + | Address | [address] | | | [place] [address] | + + + | Home Phone [...] Providers + +------+ + | Care Manager Produce Name | Role | Phone | + [...] [place], [place] | | | | | [address] | [address] | | | | | [phone] | [phone] | | | | | | | [...] [place] | | | | | | [address] | | | | | | [phone] | | | | | | | | +--------+---------+ + + + | 02/26/ | Office | Urology | Lillie Fowler | | | 2019 | Visit | | [address] | | | | | | [address] | | | | | | [place], [place] | | | | | | [address] | | | | | | [phone] | | | | | | | | +--------+---------+ + + + | 03/16/ | Office | Neurology | Theresa, | | | 2018 | Visit | | [address] | | | | | | [address] [place], | | | | | | [place] [address] | | | | | | [phone] | | | | | | | | +--------+---------+ + + + | 04/12/ | Office | Primary Care | Massimo Ramos | | | 2019 | Visit | | MD Fer [address] | | | | | | [place] | | | | | | [address] | | | | | | | | +--------+---------+ + + + | 10/03/ | Office | Neurology | Fabián Carias MD | | | 2019 | Visit | | [address] | | | | | | [place] | | | | | | [address] | | | | | | | [...] | | care | | | Machine Adjuster-C | | | | | | | [...] | | care | | | Machine Adjuster-C | | | | | | | [...] | | care | | | Machine Adjuster-C | | | | | | | [...] | | care | | | Machine Adjuster-C | | | | | | | [...]
--- OUTSIDE RECORDS SUMMARY | ~2019-02-17 | XMS | Encounter Summary ---
Demographics + + + | Address | [address] | | | [place] [address] | + + + | Home Phone [...] Team Providers + +------+ + | Care Paleology Professor Name | Role | Phone | [...] | | | | | [address] [place], | [address] | | | | | [place] [address] | [phone] | | | | | [phone] | | | +--------+ + + + [...] [place] | | | | | | [address] | | | | | | [phone] | | | | | | | | +--------+---------+ + + + | 02/26/ | Office | Urology | Lillie Fowler | | | 2018 | Visit | | [address] | | | | | | [address] | | | | | | [place] | | | | | | [address] | | | | | | [phone] | | | | | | | | +--------+---------+ + + + | 03/16/ | Office | Neurology | Theresa, | | | 2018 | Visit | | [address] | | | | | | [address] [place], | | | | | | [place] [address] | | | | | | [phone] | | | | | | | | +--------+---------+ + + + | 04/12/ | Office | Primary Care | Massimo Ramos | | | 2019 | Visit | | MD Fer [address] | | | | | | [place] | | | | | | [address] | | | | | | | | +--------+---------+ + + + | 10/03/ | Office | Neurology | Fabián Carias MD | | | 2019 | Visit | | [address] | | | | | | [place] | | | | | | [address] | | | | | | | [...] | | | care | | | Endoscopy Registered Nurse-C | | | | | | [...] | | | care | | | Endoscopy Registered Nurse-C | | | | | | [...] | | | care | | | Endoscopy Registered Nurse-C | | | | | | [...] | | | care | | | Endoscopy Registered Nurse-C | | | | | | | linical | + +--------+ +---+-----+ + + + | Note: Pt will | | check CBG's daily x1 | | Pt will take Lantis as | | prescribed | + + documented as of this encounter Visit Diagnoses Not on filedocumented in this encounter"
--- OUTSIDE RECORDS SUMMARY | ~2019-02-17 | XMS | Encounter Summary ---
Demographics + + + | Address | [address] | | | [place] [address] | + + + | Home Phone [...] Team Providers + +------+ + | Care Tape Transferrer Name | Role | Phone | + [...] + | 04/11/ | Refill | [place] [facility] | Horacio Silvestre, | Medication Refill | | 2017 | | [facility] | DO [address] | | | | | MED[facility] [address] | [facility], [place] | | | | | [address] [place], | [address] | | | | | [place] [address] | [phone] | | | | | [phone] | | | +--------+--------+ + + + [...] [place] | | | | | | [address] | | | | | | [phone] | | | | | | | | +--------+---------+ + + + | 02/26/ | Office | Urology | Malcolm Lillie | | | 2018 | Visit | | [address] | | | | | | [address] | | | | | | [place], [place] | | | | | | [address] | | | | | | [phone] | | | | | | | | +--------+---------+ + + + | 03/16/ | Office | Neurology | Theresa, | | | 2018 | Visit | | [address] | | | | | | [address] [place], | | | | | | [place] [address] | | | | | | [phone] | | | | | | | | +--------+---------+ + + + | 04/12/ | Office | Primary Care | Massimo Ramos | | | 2019 | Visit | | MD Fer [address] | | | | | | [place] | | | | | | [address] | | | | | | | | +--------+---------+ + + + | 10/03/ | Office | Neurology | Fabián Carias MD | | | 2019 | Visit | | [address] | | | | | | [place] | | | | | | [address] | | | | | | | [...] | | | care | | | Layer Out-C | | | | | | | [...] | | | care | | | Layer Out-C | | | | | | | [...] | | | care | | | Layer Out-C | | | | | | | [...] | | | care | | | Layer Out-C | | | | | | | linical | + +--------+ +---+-----+ + + + | Note: Pt will | | check CBG's daily x1 | | Pt will take Lantis as | | prescribed | + + documented as of this encounter Visit Diagnoses Not on filedocumented in this encounter"
--- OUTSIDE RECORDS SUMMARY | ~2019-02-17 | XMS | Encounter Summary ---
Demographics + + + | Address | [address] | | | [place] [address] | + + + | Home Phone [...] Providers + +------+ + | Care Stone Finisher Name | Role | Phone | [...] Description | +--------+--------+ + + + | 05/14/ | Refill | [place] [facility] | Horacio Silvestre, | Medication Refill | | 2017 | | [facility] | DO [address] | | | | | MEDICAL [facility] [address] | [facility], [place] | | | | | [address] [place], | [address] | | | | | [place] [address] | [phone] | | | | | [phone] | | | +--------+--------+ + + + [...] [place] | | | | | | [address] | | | | | | [phone] | | | | | | | | +--------+---------+ + + + | 02/26/ | Office | Urology | Lillie Fowler | | | 2018 | Visit | | [address] | | | | | | [address] | | | | | | [place] | | | | | | [address] | | | | | | [phone] | | | | | | | | +--------+---------+ + + + | 03/16/ | Office | Neurology | Theresa, | | | 2018 | Visit | | [address] | | | | | | [address] [place], | | | | | | [place] [address] | | | | | | [phone] | | | | | | | | +--------+---------+ + + + | 04/12/ | Office | Primary Care | Massimo Ramos | | | 2019 | Visit | | MD Fer [address] | | | | | | [place] | | | | | | [address] | | | | | | | | +--------+---------+ + + + | 10/03/ | Office | Neurology | Fabián Carias MD | | | 2019 | Visit | | [address] | | | | | | [place], [place] | | | | | | [address] | | | | | | | [...] | | | care | | | System Controller-C | | | | | | [...] | | | care | | | System Controller-C | | | | | | [...] | | | care | | | System Controller-C | | | | | | [...] | | | care | | | System Controller-C | | | | | | [...]
--- OUTSIDE RECORDS SUMMARY | ~2019-02-17 | XMS | Encounter Summary ---
Demographics + + + | Address | [address] | | | [place] [address] | + + + | Home Phone [...] Providers + +------+ + | Care Supervisor Dairy Sanitation Name | Role | Phone | + [...] | | [address] [place] | [facility] | frequently; TIA | | 11/04/ | | [place] | [place] [address] | (transient ischemic | | 2019 | | [address] | [phone] | attack) | | | | [phone] | | | | | | | Jalyn Carias MD | | | | | | [address] | | | | | | [place] | | | | | | [address] | | | | | | | [...] Physician Discharge Summary Patient ID: Geraldo Mcfadden [id number] 78 y.o. 1940 Admit date: 11/02/2018 Discharge date and time: 11/04/2018 13:05 Admitting Physician: Jalyn Carias MD Discharge Physician: Jalyn Carias M.D. Admission Diagnoses: Falls frequently [R29.6] Generalized weakness [R53.1] Discharge Diagnoses: Status post CVA, right parietal lobe, right MCA, thrombotic, nondominant hemisphere, [facility] ed, presenting with recurrent falls with [...] and oriented to time, place, and person. [facility]. able to repeat, [...] made to ensure accuracy. However, inadvertent computerize die reamer errors may be present documented in this [...] of this encounter Progress Notes Scott Caballero, Internet [employer] Specialist - 11/04/2018 11:11 AM PDT PHARMACY SERVICES: [...] this time. Electronically signed by: Scott Caballero, [employer] Specialist 11/04/2018 11:11Electronically sig tavares by Vivek Juares, PharmD at 11/04/2018 1:02 PM PDTLim, Jalyn Panda MD - 11/04/2018 10: 16 AM PDT Patient: Geraldo Mcfadden : 1940: Age: 78 y.o. MedRec: [id number] PCP: Horacio Silvestre DO Admission date: 11/02/2018 [...] will require outpatient PT OT with w [facility] outpatient. He was given medical [...] and oriented to time, place, and person. [facility] is flu[facility]. able to repeat, [...] CEREBELLAR EXAMINATION: There is no dysmetria on wnymur-ht-yeld test. MISCELLANEOUS EXAM: Well kept, well nourished, [...] 5,000 Units Subcutaneous 3 times per day Jalyn Carias MD 5,000 Units at 11/04/18743 HYDROcodone-acetaminophen [...] capsule 300 mg 300 mg Oral BID Jalyn Carias MD 300 mg at 11/04 0915 [...] I advised to call for possible t oil distributor tender point injections Estimated date of Discharge: November 04, 2018 Time spent on counseling/coordination of care: 45 Minutes Total time spent with patient: 30 Minutes Jalyn Carias M.D. Electronically signed NOTE: Part of this report was transcribed using voice recognition software. Every effort was made to ensure accuracy. However, inadvertent computerize die reamer errors may be present Jas Cohen RRT [...] slept peacefully until he was awoken. His MAGNETIC OBSERVER meds reflec rosemarie nothing of pain management when at home; when asked, Ed says the 10 of oxy is what they give him when he is at home. Ed says his grandson with [employer] lives with him and his and helps him around the h ouse and with his meds. 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 Ed's neuro assessments [...] to go back home today. Scott Mendes, [employer] Specialist - 11/02/2018 3:50 PM PDTFormatting of this no te might be different from the original. PHARMACY SERVICES: ADMISSION MEDICATION REVIEW Geraldo Mcfadden [...] performed and electronically signed by Scott Caballero, [employer] Specialist 15:50 documented in this encounter Plan of [...] [place] | | | | | | [address] | | | | | | [phone] | | | | | | | | +--------+---------+ + + + | 02/26/ | Office | Urology | Lillie Fowler | | | 2018 | Visit | | [address] | | | | | | [address] | | | | | | [place] | | | | | | [address] | | | | | | [phone] | | | | | | | | +--------+---------+ + + + | 03/16/ | Office | Neurology | Theresa, | | | 2018 | Visit | | [address] | | | | | | [address] [place], | | | | | | [place] [address] | | | | | | [phone] | | | | | | | | +--------+---------+ + + + | 04/12/ | Office | Primary Care | Massimo Ramos | | | 2019 | Visit | | MD Fer [address] | | | | | | [place] | | | | | | [address] | | | | | | | | +--------+---------+ + + + | 10/03/ | Office | Neurology | Jalyn Carias MD | | | 2019 | Visit | | [address] | | | | | | [place] | | | | | | [address] | | | | | | | [...] | | | care | | | Bag Making 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-C | | | | | [...] | | | care | | | Bag Making 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-C | | | | | [...] | | | care | | | Bag Making 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-C | | | | | [...] | | | care | | | Bag Making 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-C | | | | | [...] + + | [facility] | [address] | [place] [address] | [phone] | | HOS[facility]ITAL [facility] | | | [...] + + | [place] [facility] | [address] | [place] [address] | [phone] | | HOSPITAL [facility] | | | [...] + + | [place] [facility] | [address] | [place] [address] | [phone] | | HOSPITAL [facility] | | | [...] + + | [place] [facility] | [address] | [place] [address] | [phone] | | HOSPITAL [facility] | | | [...] + + | [facility] | [address] | [place] [address] | [phone] | | HOSPITAL [facility] | | | [...] + + | [place] [facility] | [address] | [place] [address] | [phone] | | HOSPITAL [facility] | | | [...] + + | [place] | [address] | [place] [address] | [phone] | | HOSPITAL [facility] | | | [...] + + | [facility] | [address] | [place] [address] | [phone] | | HOSPITAL [facility] | | | [...] + + | [facility] | [address] | [place] [address] | [phone] | | HOSPITAL [facility] | | | [...] | mL/min/1.73m2 | [facility] | | | [facility]INCENT[facility] | RATE,ESTIMATED | | HOSPITAL | | | | mL/min/1.07l2Aarm than | | LABORATORY | | | [...] + + | [facility] | [address] | [place] [address] | [phone] | | HOSPITAL [facility] | | | [...] 1.24 (L) | 2.80 - 7.70 | [facility] | | | Neutrophils | | K/uL [...] + + | [facility] | [address] | [place] [address] | [phone] | | HOSPITAL [facility] | | | [...] + + | [place] | [address] | [place] [address] | [phone] | | HOSPITAL [facility] | | | [...] + + | [place] | [address] | [place] [address] | [phone] | | HOSPITAL [facility] | | | [...] + + | [facility] | [address] | [place] [address] | [phone] | | HOSPITAL [facility] | | | [...] + + | [facility] | [address] | [place] [address] | [phone] | | HOSPITAL [facility] | | | [...] | [facility] | | | | mg/dL Lhgnthk771 - | | HOSPITAL | | | | 129 mg/dL Near | | LABORATORY | | | | Usdhlld677 - 159 mg/dL | | | | | | Cvtworutei187 - 189 | | | | | [...] + + | [facility] | [address] | [place] [address] | [phone] | | HOSPITAL [facility] | | | [...] + + | [facility] | [address] | [place] [address] | [phone] | | HOSPITAL [facility] | | | [...] - 1.030 | [facility] | | | Dorothy | | | [facility] | | | [...] + + | [facility] | [address] | [place] [address] | [phone] | | HOSPITAL [facility] | | | [...] + + | [facility] | [address] | [place] [address] | [phone] | | HOSPITAL LAB[facility] | | | [...] + + | [facility] | [address] | [place] [address] | [phone] | | HOSPITAL LAB[facility]ORY | | | [...] + + | [facility] | [address] | [place] [address] | [phone] | | HOSPITAL [facility] | | | [...] + + | [facility] | [address] | [place] [address] | [phone] | | HOSPITAL [facility] | | | [...] + + | [facility] | [address] | [place] [address] | [phone] | | HOSPITAL [facility] | | | [...] not | >60Comment: GLOMERULAR | >=60 | [facility] | | | | FILTRATION | mL/min/1.73m2 | [facility] | | | [facility] | RATE,ESTIMATED | | HOSPITAL | | | | mL/min/1.45i2Cvhv than | | LABORATORY | | | [...] + + + + + | [facility] | [address] | [place] [address] | [phone] | | HOSPITAL LAB[facility] | | | | + + + + + ECG 12 lead (11/02/2018 1:16 PM PDT) + + | Specimen | + + | | + + + + + | Narrative | Performed At | + + + | Heart Rate: 85 | [facility] | | bpmQRS Interval: 100 msQT Interval: 364 msQTC Interval: 433 msP [place]: | TRACEMASTER | | 20 degQRS [place]: -22 degT Wave [place]: 19 degP-R Interval: 184 msec- | | | OTHERWISE NORMAL ECG -SINUS RHYTHM [Remains]BORDERLINE LEFT AXIS | | | DEVIATION [Remains]NO SIGNIFICANT CHANGE | | |QRS [place]: -22 deg | | |T Wave [place]: 19 deg | | |P-R Interval: 184 [...] | | | | AC, NPO, Daytime 9103-8690 Use | | | | | | | NIGHT DOSE for doses scheduled: | | | | | | | HS, 3AM, Nighttime 3965-9175 | | | | | | | [...]
--- OUTSIDE RECORDS SUMMARY | ~2019-02-17 | XMS | Encounter Summary ---
Demographics + + + | Address | [address] | | | [place] [address] | + + + | Home Phone [...] Team Providers + +------+ + | Care Solid Plasterer Name | Role | Phone | + [...] + + | 01/07/ | Telephone | [facility] | Charline Banks, | Care Coordination | | 2019 | | [facility] | Case | | | | | [facility] [address] | Manager Behavior-Clinical | | | | | [address] [facility], | | | | | | [place] [address] | | | | | | [phone] | | | +--------+ + + + [...] [place] | | | | | | [address] | | | | | | [phone] | | | | | | | | +--------+---------+ + + + | 02/26/ | Office | Urology | Lillie Fowler | | | 2018 | Visit | | [address] | | | | | | [address] | | | | | | [place], [place] | | | | | | [address] | | | | | | [phone] | | | | | | | | +--------+---------+ + + + | 03/16/ | Office | Neurology | Theresa, | | | 2018 | Visit | | [address] | | | | | | [address] [place], | | | | | | [place] [address] | | | | | | [phone] | | | | | | | | +--------+---------+ + + + | 04/12/ | Office | Primary Care | Massimo Ramos Pedro Luis | | | 2019 | Visit | | MD Fer [address] | | | | | | [place] | | | | | | [address] | | | | | | | | +--------+---------+ + + + | 10/03/ | Office | Neurology | Fabián Carias MD | | | 2019 | Visit | | [address] | | | | | | [place] | | | | | | [address] | | | | | | | [...] | | care | | | Manager Behavior-C | | | | | | | [...] | | care | | | Manager Behavior-C | | | | | | | [...] | | care | | | Manager Behavior-C | | | | | | | [...] | | care | | | Manager Behavior-C | | | | | | | [...]
--- OUTSIDE RECORDS SUMMARY | ~2019-02-17 | XMS | Encounter Summary ---
Demographics + + + | Address | [address] | | | [place] [address] | + + + | Home Phone [...] Team Providers + +------+ + | Care Gi Physician Name | Role | Phone | [...] | [address] [place] | [place] [address] | | | | | [address] | [phone] | | | | | [phone] | | | +--------+ + + + [...] Instructions Luciano Diana MD - 07/05/2018Get some dstb-iuj-dmldzio Imodium and take 1 tablet after each [...] be sent through Care Everywhere.Colitis, Unders maniding (Indonesian)documented in this encounter Medications at Time of [...] | | | | | | disease, detention | | | | | | | [...] [place] | | | | | | [address] | | | | | | [phone] | | | | | | | | +--------+---------+ + + + | 02/26/ | Office | Urology | Lillie Fowler | | | 2018 | Visit | | [address] | | | | | | [address] | | | | | | [place] | | | | | | [address] | | | | | | [phone] | | | | | | | | +--------+---------+ + + + | 03/16/ | Office | Neurology | Theresa, | | | 2018 | Visit | | [address] | | | | | | [address] [place], | | | | | | [place] [address] | | | | | | [phone] | | | | | | | | +--------+---------+ + + + | 04/12/ | Office | Primary Care | Massimo Raoms | | | 2019 | Visit | | MD Fer [address] | | | | | | [place] | | | | | | [address] | | | | | | | | +--------+---------+ + + + | 10/03/ | Office | Neurology | Fabián Carias MD | | | 2019 | Visit | | [address] | | | | | | [place] | | | | | | [address] | | | | | | | [...] | | | care | | | Force Dispatcher-C | | | | | | [...] | | | care | | | Force Dispatcher-C | | | | | | [...] | | | care | | | Force Dispatcher-C | | | | | | [...] | | | care | | | Force Dispatcher-C | | | | | | [...] J?MRN: | | | | | | [id number] | | | [id number] | | | riteri | | | [...] | | | [place] | | | [employer] Architect | | | al | | | [...] | | | [place] | | | [employer] Architect | | | al | | | [...] | | | ent/e5 | | | [id number] | | | -eb93- | | | [...] J?MRN: | | | | | | [id number] | | | [id number] | | | riteri | | | [...] | | | [place] | | | [employer] Architect | | | al | | | [...] | | | [place] | | | [employer] Architect | | | al | | | [...] | | | pneumo | | | ebbe, | | | unspec | | | [...] | | | ent/e5 | | | [id number] | | | -eb93- | | | [...] - 1.030 | [facility] | | | Hiram | | | [facility]ON[facility] | | | [...] + + | [facility]ST[facility] | [address] | [place] [address] | [phone] | | [facility] | | | [...] + + | [facility]ON[facility] | [address] | [place] [address] | [phone] | | [facility] | | | [...] | mL/min/1.73m2 | [facility] | | | TOGOLESE | RATE,ESTIMATED | | [facility]ITAL | | | | mL/min/1.72q2Fqdl than | | LABORATORY | | | [...] + + | [facility] RONELLA | [address] | [place] [address] | [phone] | | [facility] | | | [...] + + | [facility]STI[facility] | [address] | [place] [address] | [phone] | | [facility] | | | [...]
--- OUTSIDE RECORDS SUMMARY | ~2019-02-17 | XMS | Encounter Summary ---
Demographics + + + | Address | [address] | | | [place] [address] | + + + | Home Phone [...] Team Providers + +------+ + | Care Roving Tester Laboratory Name | Role | Phone | + [...] | Medication | | 2018 | | [facility] | CC MALT HOUSE LOADER | Management | | | | [facility] [address] | | | | | | [address] [facility] [place], | | | | | | [place] [address] | | | | | | [phone] | | | +--------+ + + + [...] [place] | | | | | | [address] | | | | | | [phone] | | | | | | | | +--------+---------+ + + + | 02/26/ | Office | Urology | Lillie Fowler | | | 2018 | Visit | | [address] | | | | | | [address] | | | | | | [place] | | | | | | [address] | | | | | | [phone] | | | | | | | | +--------+---------+ + + + | 03/16/ | Office | Neurology | Theresa, | | | 2018 | Visit | | [address] | | | | | | [address] [place], | | | | | | [place] [address] | | | | | | [phone] | | | | | | | | +--------+---------+ + + + | 04/12/ | Office | Primary Care | Massimo Ramos | | | 2019 | Visit | | MD Fer [address] | | | | | | [place] | | | | | | [address] | | | | | | | | +--------+---------+ + + + | 10/03/ | Office | Neurology | Fabián Carias MD | | | 2019 | Visit | | [address] | | | | | | [place], [place] | | | | | | [address] | | | | | | | [...] | | hCarline Dos Santos, | | dehydration | | complex | | | Case | | | | care | | | Restaurant Culinary Manager-C | | | | | | [...] | | | care | | | Restaurant Culinary Manager-C | | | | | | [...] | | | care | | | Restaurant Culinary Manager-C | | | | | | [...] | | | care | | | Restaurant Culinary Manager-C | | | | | | | linical | + +--------+ +---+-----+ + + + | Note: Pt will | | check CBG's daily x1 | | Pt will take Lantis as | | prescribed | + + documented as of this encounter Visit Diagnoses Not on filedocumented in this encounter"
--- OUTSIDE RECORDS SUMMARY | ~2019-02-17 | XMS | Encounter Summary ---
Demographics + + + | Address | [address] | | | [place] [address] | + + + | Home Phone [...] + +------+ + | Care Legal Support Assistant Name | Role | Phone | [...] | | | | [place] | [facility] | | | | | | [address] | [address] Phone: | | | | | | [address] | [phone] | | | | | | MARCELO LANGSTON | Fax: | | | | | | [address] | [phone] | | | | | | Phone: | | | | | | | [phone] | | | | | | | Fax: | | | | | | | [phone] | | +--------+--------+ + + + + Encounter Details +--------+---------+ + + + | Date | Type | Department | Care Team | Description | +--------+---------+ + + + | 04/30/ | Office | [facility] | Theresa, | Chronic neck and | | 2019 | Visit | HOSPITAL NEUROLOGY | Rylane, MANAGER [address] | back pain (Primary | | | | CLINIC [address] [place], | Dx); Hx of transient | | | | [place], | [place] [address] | ischemic attack | | | | [place] [address] | [phone] | (TIA); Diabetic | | | | [phone] | | polyneuropathy | | | | [...] are taking other medicines. You may use tmhi-kyf-nrdktzg medicine to control pain, unless another pain [...] by your healthcare provider Date Last Reviewed: 10/06/201519993879-4523 [employer] [place] [address]. All righ ts reserved. This information is [...] are taking other medicines. You may use zhsi-pez-tyimvza medicine as directed on the bottle to [...] groin or genital area Date Last Reviewed: 10/06/201519993435-6467 [employer] [place] [address]. All righ ts reserved. This information is [...] the symptoms first appeared. Date Last Reviewed: 05/08/201719997978-27[address] [employer] [place] [address]. All [facility] ts reserved. This information is not [...] you take. This includes prescription an d yoxz-low-ahpjlxc medicines, vitamins, and herbs. Ask if any [...] speaking, walking, or seeing Date Last Reviewed: 06/05/201719998329-7280 [employer] [place] [address]. All righ ts reserved. This information is not intended as a substitute for professional medical care. Always follow your healthcare professional's instructions. documented in this encounter Progress Notes Hank Cardenas FNP - 04/30/2018 9:45 AM PST Patient: Geraldo Mcfadden Medical Record: [id number] Date of Services: 04/30/2018 Referring Doctor: Horacio [...] CATARACT REMOVAL; Surgeon: Tay Kern MD; Location: [facility] [place] [facility] SURGERY Azul Azul Takedown MOHS SURGERY Left [...] are intact. There is no dysmetria on uyzjsz-yy-qumu and hsxe-pxms-acjp. There are no abnormal or extraneous movements. [...] Gian Emu Oil, CBD oil and other dmgz-gpr-jwvnppi c sunni which can help with pain. [...] [place] | | | | | | [address] | | | | | | [phone] | | | | | | | | +--------+---------+ + + + | 02/26/ | Office | Urology | Lillie Fowler | | | 2018 | Visit | | [address]ILLIE Lopez [address] | | | | | | [address] | | | | | | [place] | | | | | | [address] | | | | | | [phone] | | | | | | | | +--------+---------+ + + + | 03/16/ | Office | Neurology | Theresa, | | | 2018 | Visit | | [address] | | | | | | [address] [place], | | | | | | [place] [address] | | | | | | [phone] | | | | | | | | +--------+---------+ + + + | 04/12/ | Office | Primary Care | Massimo Ramos | | | 2019 | Visit | | MD Fer [address] | | | | | | [place] | | | | | | [address] | | | | | | | | +--------+---------+ + + + | 10/03/ | Office | Neurology | Fabián Carias MD | | | 2019 | Visit | | [address] | | | | | | [place] | | | | | | [address] | | | | | | | [...] | | | care | | | Overnight Stocker-C | | | | | | | [...] | | | care | | | Overnight Stocker-C | | | | | | | [...] | | | care | | | Overnight Stocker-C | | | | | | | [...] | | | care | | | Overnight Stocker-C | | | | | | | [...]
--- OUTSIDE RECORDS SUMMARY | ~2019-02-17 | XMS | Encounter Summary ---
Demographics + + + | Address | [address] | | | [place] [address] | + + + | Home Phone [...] Team Providers + +------+ + | Care Shredding Specialist Name | Role | Phone | [...] HOSPITAL HEMATOLOGY | MD [address] | ([facility]) | | | | ONCOLOGY [address] | [address] | | | | | DR [place], [place] | [place] | | | | | [address] | [address] | | | | | [phone] | [phone] | | | | | | | [...] [place] | | | | | | [address] | | | | | | [phone] | | | | | | | | +--------+---------+ + + + | 02/26/ | Office | Urology | Lillie Fowler | | | 2018 | Visit | | [address]ILLIE [address] | | | | | | [address] | | | | | | [place], [place] | | | | | | [address] | | | | | | [phone] | | | | | | | | +--------+---------+ + + + | 03/16/ | Office | Neurology | Theresa, | | | 2018 | Visit | | [address] | | | | | | [address] [place], | | | | | | [place] [address] | | | | | | [phone] | | | | | | | | +--------+---------+ + + + | 04/12/ | Office | Primary Care | Massimo Ramos | | | 2019 | Visit | | MD Fer [address] | | | | | | [place] | | | | | | [address] | | | | | | | | +--------+---------+ + + + | 10/03/ | Office | Neurology | Fabián Carias MD | | | 2019 | Visit | | [address] | | | | | | [place] | | | | | | [address] | | | | | | | [...] | | | care | | | Sergeant Missile Crewman-C | | | | | | | [...] | | | care | | | Sergeant Missile Crewman-C | | | | | | | [...] | | | care | | | Sergeant Missile Crewman-Shivani | | | | | | | [...] | | | care | | | Sergeant Missile Crewman-C | | | | | | | [...]
--- OUTSIDE RECORDS SUMMARY | ~2019-02-17 | XMS | Encounter Summary ---
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, with | | | | | | long-term current | | | | | | use of insulin | | | | | | ([facility]); Numbness | +--------+ + + + + [...] [place] | | | | | | [address] | | | | | | [phone] | | | | | | | | +--------+---------+ + + + | 02/26/ | Office | Urology | Lillie Fowler | | | 2018 | Visit | | [address]ILLIE [address] | | | | | | [address] | | | | | | [place], [place] | | | | | | [address] | | | | | | [phone] | | | | | | | | +--------+---------+ + + + | 03/16/ | Office | Neurology | Theresa, | | | 2018 | Visit | | [address] | | | | | | [address] [place], | | | | | | [place] [address] | | | | | | [phone] | | | | | | | | +--------+---------+ + + + | 04/12/ | Office | Primary Care | Massimo Ramos | | | 2019 | Visit | | MD [address] | | | | | | [place] | | | | | | [address] | | | | | | | | +--------+---------+ + + + | 10/03/ | Office | Neurology | Fabián Carias MD | | | 2019 | Visit | | [address] | | | | | | [place] | | | | | | [address] | | | | | | | [...] | | care | | | Metal Or Wood Blocker-C | | | | | | | [...] | | care | | | Metal Or Wood Blocker-C | | | | | | | [...] | | care | | | Metal Or Wood Blocker-C | | | | | | | [...] | | care | | | Metal Or Wood Blocker-C | | | | | | | [...]
--- OUTSIDE RECORDS SUMMARY | ~2019-02-17 | XMS | Encounter Summary ---
Demographics + + + | Address | [address] | | | [place] [address] | + + + | Home Phone [...] Team Providers + +------+ + | Care Digital Media Manager Name | Role | Phone | + +------+ + | Ryan Gutiérrez MD | PCP | | + +------+ + Encounter Details +--------+ + + + + | Date | Type | Department | Care Team | Description | +--------+ + + + + | 01/31/ | [facility] | Horacio Silvestre, | | | 2016 | Encounter | [facility] | DO [address] | | | | | MEDICAL CLINIC [address] | [place], [place] | | | | | [address] [facility], | [address] | | | | | [place] [address] | [phone] | | | | | [phone] | | | +--------+ + + + [...] [place] | | | | | | [address] | | | | | | [phone] | | | | | | | | +--------+---------+ + + + | 02/26/ | Office | Urology | Lillie Fowler | | | 2018 | Visit | | [address]ILLIE Lopez [address] | | | | | | [address] | | | | | | [place] | | | | | | [address] | | | | | | [phone] | | | | | | | | +--------+---------+ + + + | 03/16/ | Office | Neurology | Theresa, | | | 2018 | Visit | | [address] | | | | | | [address] [place], | | | | | | [place] [address] | | | | | | [phone] | | | | | | | | +--------+---------+ + + + | 04/12/ | Office | Primary Care | Massimo Ramos | | | 2019 | Visit | | MD Fer [address] | | | | | | [place] | | | | | | [address] | | | | | | | | +--------+---------+ + + + | 10/03/ | Office | Neurology | Fabián Carias MD | | | 2019 | Visit | | [address] | | | | | | [place] | | | | | | [address] | | | | | | | [...] | | | care | | | Post Partum Nurse-C | | | | | | [...] | | | care | | | Post Partum Nurse-C | | | | | | [...] | | | care | | | Post Partum Nurse-C | | | | | | [...] | | | care | | | Post Partum Nurse-C | | | | | | | linical | + +--------+ +---+-----+ + + + | Note: Pt will | | check CBG's daily x1 | | Pt will take Lantis as | | prescribed | + + documented as of this encounter Visit Diagnoses Not on filedocumented in this encounter"
--- OUTSIDE RECORDS SUMMARY | ~2019-02-17 | XMS | Encounter Summary ---
Demographics + + + | Address | [address] | | | [place] [address] | + + + | Home Phone [...] Team Providers + +------+ + | Care Group Fitness Instructor Name | Role | Phone | [...] to ER) | | 2019 | | [facility] | | | | | | CLINIC [address] | | | | | | [address] [place], | | | | | | [place] [address] | | | | | | [phone] | | | +--------+ + + + [...] [place] | | | | | | [address] | | | | | | [phone] | | | | | | | | +--------+---------+ + + + | 02/26/ | Office | Urology | Lillie Fowler | | | 2018 | Visit | | LILLIE [address] | | | | | | [address] | | | | | | [place], [place] | | | | | | [address] | | | | | | [phone] | | | | | | | | +--------+---------+ + + + | 03/16/ | Office | Neurology | Theresa, | | | 2018 | Visit | | [address] | | | | | | [address] [place], | | | | | | [place] [address] | | | | | | [phone] | | | | | | | | +--------+---------+ + + + | 04/12/ | Office | Primary Care | Massimo Ramos | | | 2019 | Visit | | MD Fer [address] | | | | | | [place] | | | | | | [address] | | | | | | | | +--------+---------+ + + + | 10/03/ | Office | Neurology | Fabián Carias MD | | | 2019 | Visit | | [address] | | | | | | [place] | | | | | | [address] | | | | | | | [...] | | | care | | | Package Dyer-C | | | | | | | [...] | | | care | | | Package Dyer-C | | | | | | | [...] | | | care | | | Package Dyer-C | | | | | | | [...] | | | care | | | Package Dyer-C | | | | | | | [...]
--- OUTSIDE RECORDS SUMMARY | ~2019-02-17 | XMS | Encounter Summary ---
Demographics + + + | Address | [address] | | | [place] [address] | + + + | Home Phone [...] Team Providers + +------+ + | Care Technology Risk Intern Name | Role | Phone | [...] | | | MEDICAL CLIN[facility] [address] | Bar Assistant-Clinical | | | | | [facility] [place], | | | | | | [place] [address] | | | | | | [phone] | | | +--------+ + + + [...] [place] | | | | | | [address] | | | | | | [phone] | | | | | | | | +--------+---------+ + + + | 02/26/ | Office | Urology | Lillie Fowler | | | 2018 | Visit | | [address]ILLIE [address] | | | | | | [address] | | | | | | [place], [place] | | | | | | [address] | | | | | | [phone] | | | | | | | | +--------+---------+ + + + | 03/16/ | Office | Neurology | Theresa, | | | 2018 | Visit | | [address] | | | | | | [address] [place], | | | | | | [place] [address] | | | | | | [phone] | | | | | | | | +--------+---------+ + + + | 04/12/ | Office | Primary Care | Richard Massimo Pedro Luis | | | 2019 | Visit | | MD Fer [address] | | | | | | [place] | | | | | | [address] | | | | | | | | +--------+---------+ + + + | 10/03/ | Office | Neurology | Fabián Carias MD | | | 2019 | Visit | | [address] | | | | | | [place] | | | | | | [address] | | | | | | | [...] | | | care | | | Bar Assistant-C | | | | | | [...] | | | care | | | Bar Assistant-C | | | | | | [...] | | | care | | | Bar Assistant-C | | | | | | [...] | | | care | | | Bar Assistant-C | | | | | | [...]
--- OUTSIDE RECORDS SUMMARY | ~2019-02-17 | XMS | Encounter Summary ---
Demographics + + + | Address | [address] | | | [place] [address] | + + + | Home Phone [...] Team Providers + +------+ + | Care Woodwinds Teacher Name | Role | Phone | [...] Dx); Lumbar | | | | [place] [address] | | radiculopathy; | | | | [phone] | | Diabetic | | | | | | polyneuropathy | | | | | | associated with type | | | | | | 2 diabetes mellitus | | | | | | ([facility]) | +--------+ + + + [...] [place] | | | | | | [address] | | | | | | [phone] | | | | | | | | +--------+---------+ + + + | 02/26/ | Office | Urology | Lillie Fowler | | | 2018 | Visit | | LILLIE Lopez [address] | | | | | | [address] | | | | | | [place], [place] | | | | | | [address] | | | | | | [phone] | | | | | | | | +--------+---------+ + + + | 03/16/ | Office | Neurology | Theresa, | | | 2018 | Visit | | [address] | | | | | | [address] [place], | | | | | | [place] [address] | | | | | | [phone] | | | | | | | | +--------+---------+ + + + | 04/12/ | Office | Primary Care | Massimo Ramos | | | 2019 | Visit | | MD Fer [address] | | | | | | [place] | | | | | | [address] | | | | | | | | +--------+---------+ + + + | 10/03/ | Office | Neurology | Fabián Carias MD | | | 2019 | Visit | | [address] | | | | | | [place] | | | | | | [address] | | | | | | | [...] | | | care | | | Diet Technician Registered-C | | | | | | | [...] | | | care | | | Diet Technician Registered-C | | | | | | | [...] | | | care | | | Diet Technician Registered-C | | | | | | | [...] | | | care | | | Diet Technician Registered-C | | | | | | | [...] mellitus | | | | | | ([facility]) | | + +--------+ + + + [...]
--- OUTSIDE RECORDS SUMMARY | ~2019-02-17 | XMS | Encounter Summary ---
Demographics + + + | Address | [address] | | | [place] [address] | + + + | Home Phone [...] Team Providers + +------+ + | Care Court Recording Monitor Name | Role | Phone | + [...] [address] | [address] | ([facility]) (Primary Dx); | | | | [address] [place], [place] | [place] [address] | Sepsis, due to | | | | [address] | [phone] | unspecified organism | | | | [phone] | | ([facility]); Pneumonia of | | | | | [...] | | | | | in kidney ([facility]); | | | | | | Hypomagnesemia [...] disc disease), cervical (05/22/2013), Diabetes melli tus ([facility]), GERD (gastroesophageal reflux disease), Gout, Hiatal hernia, Hypertension, Melano ma ([facility]), Melanoma ([facility]), 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, left ([facility]), Neck pain, chronic (05/22/2013 ), Neuropathy, Paresthesias - both hands (05/22/2013), and Thyroid disease. Antimicrobials - Discontinued Antibiotic Dates of Therapy Zosyn 3.375g Once 07/24/2018 Historical Vancomycin dosing (previous & current encounter): Vancomycin Loading dose of 100 0mg Micro/Cultures/Diagnostics: Microbiology Results (Last 14 Days by Collected Date with Culture/Sensitivity) Procedure Component Value Units Date/Time Culture, Blood [[id number]] Collected: 07/24/18 1107 Order Status: Sent Lab Status: In process Updated: 07/24/18 1111 Specimen: Peripheral Blood Culture, Blood [[id number]] Collected: 07/24/18 1050 Order Status: Sent Lab Status: In process Updated: 07/24/18 1106 Specimen: Peripheral Blood Culture, MRSA [[id number]] Collected: 07/15/18 0036 Order Status: Completed Lab Status: Final result Updated: 07/17/18 0749 Specimen: Tissue from Nares Culture 1+ Staphylococcus aureus,Methicillin resistant (MRSA) Culture, Blood [[id number]] Collected: 07/14/18 1230 Order Status: Completed Lab Status: Final result Updated: 07/19/18 1321 Specimen: Peripheral Blood Culture No growth after 5 days incubation. Culture, Blood [[id number]] Collected: 07/14/18 1218 Order Status: Completed Lab [...] [place] | | | | | | [address] | | | | | | [phone] | | | | | | | | +--------+---------+ + + + | 02/26/ | Office | Urology | Lillie Fowler | | | 2019 | Visit | | [address]ILLIE [address] | | | | | | [address] | | | | | | [place] | | | | | | [address] | | | | | | [phone] | | | | | | | | +--------+---------+ + + + | 03/16/ | Office | Neurology | Theresa, | | | 2018 | Visit | | [address] | | | | | | [address] [place], | | | | | | [place] [address] | | | | | | [phone] | | | | | | | | +--------+---------+ + + + | 04/12/ | Office | Primary Care | Massimo Ramos | | | 2019 | Visit | | MD Fer [address] | | | | | | [place] | | | | | | [address] | | | | | | | | +--------+---------+ + + + | 10/03/ | Office | Neurology | Fabián Carias MD | | | 2019 | Visit | | [address] | | | | | | [place] | | | | | | [address] | | | | | | | [...] | | | care | | | Booster Assembler-C | | | | | | [...] | | | care | | | Booster Assembler-C | | | | | | [...] | | | care | | | Booster Assembler-C | | | | | | [...] | | | care | | | Booster Assembler-C | | | | | | [...] - 1.030 | [place] | | | [place] | | | [facility] | | | [...] + + | [facility] | [address] | [place] [address] | [phone] | | HOSPITAL LABORATORY | | | [...] + + | [place] [facility] | [address] | [place] [address] | [phone] | | HOSPITAL LAB[facility]ATORY | | | [...] + + | [place] [facility] | [address] | [place] [address] | [phone] | | HOSPITAL LABORATORY | | | [...] Interval: 432 msP | TRACEMASTER | | [place]: 33 degQRS [place]: -19 degT Wave [place]: 33 degP-R Interval: 160 | | | msec- OTHERWISE NORMAL ECG -SINUS TACHYCARDIA [Now Present]BORDERLINE | | | LEFT AXIS DEVIATION [Remains]SIGNIFICANT RHYTHM CHANGES[Now Absent] | | | SINUS RHYTHM | | |T Wave [place]: 33 deg | | |P-R Interval: 160 [...] + + | [place] [facility] | [address] | [place] [address] | [phone] | | HOSPITAL LABORATORY | | | [...] + + | [facility] | [address] | [place] [address] | [phone] | | HOSPITAL LABORATORY | | | [...] + + | [facility] [facility] | [address] | [place] [address] | [phone] | | HOSPITAL LABORATORY | | | [...] + + | [place] [facility] | [address] | [place] [address] | [phone] | | HOSPITAL LABORATORY | | | [...] + + | [place] [facility] | [address] | [place] [address] | [phone] | | HOSPITAL LAB[facility]ATORY | | | [...] + + | [facility] | [address] | [place] [address] | [phone] | | HOSPITAL LABORATORY | | | [...] + + | [facility] | [address] | [place] [address] | [phone] | | HOSPITAL LABORATORY | | | [...] | mL/min/1.73m2 | [facility] | | | [facility] | RATE,ESTIMATED | | HOSPITAL | | | | mL/min/1.09e7Mxmf than | | LABORATORY | | | [...] + + | [facility] | [address] | [place] [address] | [phone] | | HOSPITAL LABORATORY | | | [...] + + | [facility] [facility] | [address] | [place] [address] | [phone] | | HOSPITAL LABORATORY | | | [...]
--- OUTSIDE RECORDS SUMMARY | ~2019-02-17 | XMS | Encounter Summary ---
Demographics + + + | Address | [address] | | | [place] [address] | + + + | Home Phone [...] Team Providers + +------+ + | Care Feed Handler Name | Role | Phone | + [...] | | n | MANAGEMENT [address] | Package Worker-Clinical | (Primary Dx) | | | | [address] | | | | | | [place] | | | | | | [address] | | | | | | [phone] | | | +--------+ + + + [...] as of this encounter Progress Charline Pascual, Acid Wash Operator-Clinical - 05/29/2018 3:38 PM PSTThis encounter was created in error - please disregard.Electronically signed by Charline Banks Acid Wash Operator-Clinical ludy t 06/02/2018 8:44 AM PSTdocumented in [...] [place] | | | | | | [address] | | | | | | [phone] | | | | | | | | +--------+---------+ + + + | 02/26/ | Office | Urology | Lillie Fowler | | | 2018 | Visit | | LILLIE [address] | | | | | | [address] | | | | | | [place], [place] | | | | | | [address] | | | | | | [phone] | | | | | | | | +--------+---------+ + + + | 03/16/ | Office | Neurology | Theresa, | | | 2018 | Visit | | [address] | | | | | | [address] [place], | | | | | | [place] [address] | | | | | | [phone] | | | | | | | | +--------+---------+ + + + | 04/12/ | Office | Primary Care | Massimo Ramos | | | 2019 | Visit | | MD Fer [address] | | | | | | [address] [place] | | | | | | [address] | | | | | | | | +--------+---------+ + + + | 10/03/ | Office | Neurology | Fabián Carias MD | | | 2019 | Visit | | [address] | | | | | | [place] | | | | | | [address] | | | | | | | [...] | | care | | | Package Worker-C | | | | | | [...] | | care | | | Package Worker-C | | | | | | [...] | | care | | | Package Worker-C | | | | | | [...] | | care | | | Package Worker-C | | | | | | [...]
--- OUTSIDE RECORDS SUMMARY | ~2019-02-17 | XMS | Encounter Summary ---
Demographics + + + | Address | [address] | | | [place] [address] | + + + | Home Phone [...] Team Providers + +------+ + | Care Resident Assistant Name | Role | Phone | [...] Medication Refill; | | 2018 | | [facility] | [address] | Medication Refill | | | | [facility] | [facility] [place], [place] | | | | | [address] [place], | [address] | | | | | [place] [address] | [phone] | | | | | [phone] | | | +--------+--------+ + + + [...] [place] | | | | | | [address] | | | | | | [phone] | | | | | | | | +--------+---------+ + + + | 02/26/ | Office | Urology | Lillie Fowler | | | 2018 | Visit | | [address]ILLIE Lopez [address] | | | | | | [address] | | | | | | [place], [place] | | | | | | [address] | | | | | | [phone] | | | | | | | | +--------+---------+ + + + | 03/16/ | Office | Neurology | Theresa, | | | 2018 | Visit | | [address] | | | | | | [address] [place], | | | | | | [place] [address] | | | | | | [phone] | | | | | | | | +--------+---------+ + + + | 04/12/ | Office | Primary Care | Massimo Ramos | | | 2019 | Visit | | MD Fer [address] | | | | | | [address] [place] | | | | | | [address] | | | | | | | | +--------+---------+ + + + | 10/03/ | Office | Neurology | Fabián Carias MD | | | 2019 | Visit | | [address] | | | | | | [place] | | | | | | [address] | | | | | | | [...] | | care | | | Supervisor Model Making-C | | | | | | | [...] | | care | | | Supervisor Model Making-C | | | | | | | [...] | | care | | | Supervisor Model Making-C | | | | | | | [...] | | care | | | Supervisor Model Making-C | | | | | | | [...]
--- OUTSIDE RECORDS SUMMARY | ~2019-02-17 | XMS | Encounter Summary ---
Demographics + + + | Address | [address] | | | [place] [address] | + + + | Home Phone [...] Team Providers + +------+ + | Care Helicopter Crew Chief Name | Role | Phone | [...] | | | | [place], [place] | [address] | | | | | [address] | [phone] | | | | | [phone] | | | +--------+ + + + [...] [place] | | | | | | [address] | | | | | | [phone] | | | | | | | | +--------+---------+ + + + | 02/26/ | Office | Urology | Lillie Fowler | | | 2018 | Visit | | [address]IE [address] | | | | | | [address] | | | | | | [place] | | | | | | [address] | | | | | | [phone] | | | | | | | | +--------+---------+ + + + | 03/16/ | Office | Neurology | Theresa, | | | 2018 | Visit | | [address] | | | | | | [address] [place], | | | | | | [place] [address] | | | | | | [phone] | | | | | | | | +--------+---------+ + + + | 04/12/ | Office | Primary Care | Massimo Ramos | | | 2019 | Visit | | MD [place] [address] | | | | | | [place] | | | | | | [address] | | | | | | | | +--------+---------+ + + + | 10/03/ | Office | Neurology | Fabián Carias MD | | | 2019 | Visit | | [address] | | | | | | [place] | | | | | | [address] | | | | | | | [...] | | care | | | Sap Grc Security-C | | | | | | | [...] | | care | | | Sap Grc Security-C | | | | | | | [...] | | care | | | Sap Grc Security-C | | | | | | | [...] | | care | | | Sap Grc Security-C | | | | | | | [...] | | | radiocarpal articulation. JOB #: [id number] Digitally Released by: | | | Drew [...] | | | | | JOB #: [id number] | | Digitally Released by: Drew Lawrence | | | | | | Read By: DREW LAWRENCE MD | | Date: 10/03/2016 12:19 | | | + + documented in this encounter Visit Diagnoses Not on filedocumented in this encounter"
--- OUTSIDE RECORDS SUMMARY | ~2019-02-17 | XMS | Encounter Summary ---
Demographics + + + | Address | [address] | | | [place] [address] | + + + | Home Phone [...] Team Providers + +------+ + | Care Special Projects Manager Name | Role | Phone | [...] | and tingling | [address], | [place], [place] | | | | | of right | [place] [address] | [address] Phone: | | | | | arm Neck | Phone: | [phone] | | | | | pain | [phone] | Fax: | | | | | Procedures | Fax: | [phone] | | | | | [place] OFFICE | [phone] | | | | | | CONSULTATION [...] + + | 05/05/ | Office | [facility] | Mor Guevara | Neck pain, chronic | | 2013 | Visit | PHYSIATRY [address] | [address], [address] | (Primary Dx); DDD | | | | [place], | [address] [place] [place], [place] | (degenerative disc | | | | [place] [address] | [address] | disease), cervical; | | | | [phone] | | Paresthesias - both | | [...] has no apparent 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 The cranial nerves appear grossly intact. [...] be done closer to his home in [facility] if a physical therapy l ocation can [...] [place] | | | | | | [address] | | | | | | [phone] | | | | | | | | +--------+---------+ + + + | 02/26/ | Office | Urology | Lillie Fowler | | | 2018 | Visit | | [address] | | | | | | [address] | | | | | | [place], [place] | | | | | | [address] | | | | | | [phone] | | | | | | | | +--------+---------+ + + + | 03/16/ | Office | Neurology | Theresa, | | | 2018 | Visit | | [address] | | | | | | [address] [place], | | | | | | [place] [address] | | | | | | [phone] | | | | | | | | +--------+---------+ + + + | 04/12/ | Office | Primary Care | Massimo Ramos | | | 2019 | Visit | | MD Fer [address] | | | | | | [place] | | | | | | [address] | | | | | | | | +--------+---------+ + + + | 10/03/ | Office | Neurology | Fabián Carias MD | | | 2019 | Visit | | [address], [place] | | | | | | [place], [place] | | | | | | [address] | | | | | | | [...] | | care | | | Cyber Incident Analyst-C | | | | | | [...] | | care | | | Cyber Incident Analyst-C | | | | | | [...] | | care | | | Cyber Incident Analyst-C | | | | | | [...] | | care | | | Cyber Incident Analyst-C | | | | | | [...]
--- OUTSIDE RECORDS SUMMARY | ~2019-02-17 | XMS | Encounter Summary ---
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 Dispense: 84 tablet; Refill: 0 7. senior living current use of non-steroidal anti-inflammatories (NSAID) - [...] CATARACT REMOVAL; Surgeon: Tay Kern MD; Location: [facility] SURGERY [facility] [employer] MOHS [...] [place] | | | | | | [address] | | | | | | [phone] | | | | | | | | +--------+---------+ + + + | 02/26/ | Office | Urology | Lillie Fowler | | | 2019 | Visit | | [address]IE [address] | | | | | | [address] | | | | | | [place] | | | | | | [address] | | | | | | [phone] | | | | | | | | +--------+---------+ + + + | 03/16/ | Office | Neurology | Theresa, | | | 2018 | Visit | | [address] | | | | | | [facility] [place], | | | | | | [place] [address] | | | | | | [phone] | | | | | | | | +--------+---------+ + + + | 04/12/ | Office | Primary Care | Massimo Ramos | | | 2019 | Visit | | MD Fer [address] | | | | | | [place] | | | | | | [address] | | | | | | | | +--------+---------+ + + + | 10/03/ | Office | Neurology | Fabián Carias MD | | | 2019 | Visit | | [address] | | | | | | [place] | | | | | | [address] | | | | | | | [...] | | | care | | | Lunchroom Operator-C | | | | | | [...] | | | care | | | Lunchroom Operator-C | | | | | | [...] | | | care | | | Lunchroom Operator-C | | | | | | [...] | | | care | | | Lunchroom Operator-C | | | | | | [...] Other chronic pain | + + | 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
--- OUTSIDE RECORDS SUMMARY | ~2019-02-17 | XMS | Encounter Summary ---
Demographics + + + | Address | [address] | | | [place] [address] | + + + | Home Phone [...] Team Providers + +------+ + | Care Sewing Department Supervisor Name | Role | Phone | [...] | | | | | [address] [place], | [address] | | | | | [place] [address] | [phone] | | | | | [phone] | | | +--------+ + + + [...] [place] | | | | | | [address] | | | | | | [phone] | | | | | | | | +--------+---------+ + + + | 02/26/ | Office | Urology | Lillie Fowler | | | 2018 | Visit | | [address]IE [address] | | | | | | [address] | | | | | | [place], [place] | | | | | | [address] | | | | | | [phone] | | | | | | | | +--------+---------+ + + + | 03/16/ | Office | Neurology | Theresa, | | | 2018 | Visit | | [address] | | | | | | [address] [place], | | | | | | [place] [address] | | | | | | [phone] | | | | | | | | +--------+---------+ + + + | 04/12/ | Office | Primary Care | Massimo Ramos | | | 2019 | Visit | | MD Fer [address] | | | | | | [place] | | | | | | [address] | | | | | | | | +--------+---------+ + + + | 10/03/ | Office | Neurology | Fabián Carias MD | | | 2019 | Visit | | [address] | | | | | | [place] | | | | | | [address] | | | | | | | [...] | | | care | | | Representative Personal Service-C | | | | | | | [...] | | | care | | | Representative Personal Service-C | | | | | | | [...] | | | care | | | Representative Personal Service-C | | | | | | | [...] | | | care | | | Representative Personal Service-C | | | | | | | linical | + +--------+ +---+-----+ + + + | Note: Pt will | | check CBG's daily x1 | | Pt will take Lantis as | | prescribed | + + documented as of this encounter Visit Diagnoses Not on filedocumented in this encounter"
--- OUTSIDE RECORDS SUMMARY | ~2019-02-17 | XMS | Encounter Summary ---
Demographics + + + | Address | [address] | | | [place] [address] | + + + | Home Phone [...] Team Providers + +------+ + | Care Bottle Selector Name | Role | Phone | + [...] | | [address] [place], | [address] | | | | | [place] [address] | [phone] | | | | | [phone] | | | +--------+ + + + [...] [place] | | | | | | [address] | | | | | | [phone] | | | | | | | | +--------+---------+ + + + | 02/26/ | Office | Urology | Lillie Fowler | | | 2018 | Visit | | [address] | | | | | | [address] | | | | | | [place] | | | | | | [address] | | | | | | [phone] | | | | | | | | +--------+---------+ + + + | 03/16/ | Office | Neurology | Theresa, | | | 2018 | Visit | | [address] | | | | | | [address] [place], | | | | | | [place] [address] | | | | | | [phone] | | | | | | | | +--------+---------+ + + + | 04/12/ | Office | Primary Care | Massimo Ramos | | | 2019 | Visit | | MD Fer [address] | | | | | | [place] | | | | | | [address] | | | | | | | | +--------+---------+ + + + | 10/03/ | Office | Neurology | Fabián Carias MD | | | 2019 | Visit | | [address] | | | | | | [place] | | | | | | [address] | | | | | | | [...] | | | care | | | Memorial Adviser-C | | | | | | | [...] | | | care | | | Memorial Adviser-C | | | | | | | [...] | | | care | | | Memorial Adviser-C | | | | | | | [...] | | | care | | | Memorial Adviser-C | | | | | | | [...]
--- OUTSIDE RECORDS SUMMARY | ~2019-02-17 | XMS | Encounter Summary ---
Demographics + + + | Address | [address] | | | [place] [address] | + + + | Home Phone [...] Team Providers + +------+ + | Care Quantitative Analyst Name | Role | Phone | [...] | pain, | [address] [place] | [address] | | | | | bilateral | [place], [place] | Phone: | | | | | Procedures | [address] | [phone] | | | | | MRI Cervical | Phone: | Fax: | | | | | Spine wo | [phone] | [phone] | | | | | Contrast | Fax: | | | | | | | [phone] | | +--------+--------+ + + + + [...] | pain, | [address] [place] | [address] | | | | | bilateral | [place], [place] | Phone: | | | | | Procedures | [address] | [phone] | | | | | MRI Cervical | Phone: | Fax: | | | | | Spine wo | [phone] | [phone] | | | | | Contrast | Fax: | | | | | | | [phone] | | +--------+--------+ + + + + [...] | [address] | | | | | [address] | | | | | | [phone] | | | +--------+ + + + [...] | | | | use of insulin ([facility]) | | | | | [...] | | | | use of insulin ([facility]) | | | | | [...] | | | | | disease, termite helper | | | | | | | [...] [place] | | | | | | [address] | | | | | | [phone] | | | | | | | | +--------+---------+ + + + | 02/26/ | Office | Urology | Lillie Fowler | | | 2019 | Visit | | [address]ILLIE [address] | | | | | | [address] | | | | | | [place], [place] | | | | | | [address] | | | | | | [phone] | | | | | | | | +--------+---------+ + + + | 03/16/ | Office | Neurology | Theresa, | | | 2018 | Visit | | [address] | | | | | | [address] [place], | | | | | | [place] [address] | | | | | | [phone] | | | | | | | | +--------+---------+ + + + | 04/12/ | Office | Primary Care | Massimo Ramos Pedro Luis | | | 2019 | Visit | | MD Fer [address] | | | | | | [place] | | | | | | [address] | | | | | | | | +--------+---------+ + + + | 10/03/ | Office | Neurology | Fabián Carias MD | | | 2019 | Visit | | [address] | | | | | | [place] | | | | | | [address] | | | | | | | [...] | | care | | | Industrial Diamond Polisher-C | | | | | | | [...] | | care | | | Industrial Diamond Polisher-C | | | | | | | [...] | | care | | | Industrial Diamond Polisher-C | | | | | | | [...] | | care | | | Industrial Diamond Polisher-C | | | | | | | [...]
--- OUTSIDE RECORDS SUMMARY | ~2019-02-17 | XMS | Encounter Summary ---
Demographics + + + | Address | [address] | | | [place] [address] | + + + | Home Phone [...] Team Providers + +------+ + | Care Parks Worker Name | Role | Phone | [...] Pre-op Exam | | 2018 | | [facility] | [address] | | | | | [facility]ICAL [facility] [address] | [facility], [place] | | | | | [address] [place], | [address] | | | | | [place] [address] | [phone] | | | | | [phone] | | | +--------+ + + + [...] [place] | | | | | | [address] | | | | | | [phone] | | | | | | | | +--------+---------+ + + + | 02/26/ | Office | Urology | Malcolm Lillie | | | 2018 | Visit | | [address] | | | | | | [address] | | | | | | [place], [place] | | | | | | [address] | | | | | | [phone] | | | | | | | | +--------+---------+ + + + | 03/16/ | Office | Neurology | Theresa, | | | 2018 | Visit | | [address] | | | | | | [address] [place], | | | | | | [place] [address] | | | | | | [phone] | | | | | | | | +--------+---------+ + + + | 04/12/ | Office | Primary Care | Massimo Ramos | | | 2019 | Visit | | MD Fer [address] | | | | | | [place] | | | | | | [address] | | | | | | | | +--------+---------+ + + + | 10/03/ | Office | Neurology | Fabián Carias MD | | | 2019 | Visit | | [address] | | | | | | [place] | | | | | | [address] | | | | | | | [...] | | | care | | | Wind Turbine Service Technician-C | | | | | [...] | | | care | | | Wind Turbine Service Technician-C | | | | | [...] | | | care | | | Wind Turbine Service Technician-C | | | | | [...] | | | care | | | Wind Turbine Service Technician-C | | | | | | | linical | + +--------+ +---+-----+ + + + | Note: Pt will | | check CBG's daily x1 | | Pt will take Lantis as | | prescribed | + + documented as of this encounter Visit Diagnoses Not on filedocumented in this encounter"
--- OUTSIDE RECORDS SUMMARY | ~2019-02-17 | XMS | Encounter Summary ---
Demographics + + + | Address | [address] | | | [place] [address] | + + + | Home Phone [...] Team Providers + +------+ + | Care Shipping And Receiving Operator Name | Role | Phone | [...] | | | [facility] | Unisaw Operator-Clinical | | | | | [address] [facility] [place], | | | | | | [place] [address] | | | | | | [phone] | | | +--------+ + + + [...] [place] | | | | | | [address] | | | | | | [phone] | | | | | | | | +--------+---------+ + + + | 02/26/ | Office | Urology | Lillie Fowler | | | 2018 | Visit | | [address]IE [address] | | | | | | [address] | | | | | | [place], [place] | | | | | | [address] | | | | | | [phone] | | | | | | | | +--------+---------+ + + + | 03/16/ | Office | Neurology | Theresa, | | | 2018 | Visit | | [address] | | | | | | [address] [place], | | | | | | [place] [address] | | | | | | [phone] | | | | | | | | +--------+---------+ + + + | 04/12/ | Office | Primary Care | Massimo Ramos | | | 2019 | Visit | | MD Fer [address] | | | | | | [place] | | | | | | [address] | | | | | | | | +--------+---------+ + + + | 10/03/ | Office | Neurology | Fabián Carias MD | | | 2019 | Visit | | [address] | | | | | | [place] | | | | | | [address] | | | | | | | [...] | | | care | | | Unisaw Operator-C | | | | | | [...] | | | care | | | Unisaw Operator-C | | | | | | [...] | | | care | | | Unisaw Operator-C | | | | | | [...] | | | care | | | Unisaw Operator-C | | | | | | [...]
--- OUTSIDE RECORDS SUMMARY | ~2019-02-17 | XMS | Encounter Summary ---
Demographics + + + | Address | [address] | | | [place] [address] | + + + | Home Phone [...] Team Providers + +------+ + | Care Enterprise Analyst Name | Role | Phone | [...] | | | [facility] | [place] [address] | Dx); Dementia | | | | [address] [place], | [phone] | without behavioral | | | | [place] [address] | | disturbance, | | | | [phone] | | unspecified dementia | | | [...] being t reated as an inpatient at [facility] due to Pneumonia and acute kidney injury. [...] had significantly impaired kidney function. On 07/24/18 in s Glomerular Filtration Rate (GFR) fell to [...] [place] | | | | | | [address] | | | | | | [phone] | | | | | | | | +--------+---------+ + + + | 02/26/ | Office | Urology | Lillie Fowler | | | 2019 | Visit | | LILLIE Lopez [address] | | | | | | [address] | | | | | | [place] | | | | | | [address] | | | | | | [phone] | | | | | | | | +--------+---------+ + + + | 03/16/ | Office | Neurology | Theresa, | | | 2018 | Visit | | Karyanne, SALES ACCOUNT SPECIALIST [address] | | | | | | [address] [place], | | | | | | [place] [address] | | | | | | [phone] | | | | | | | | +--------+---------+ + + + | 04/12/ | Office | Primary Care | Massimo Ramos | | | 2019 | Visit | | MD Fer [address] | | | | | | [place] | | | | | | [address] | | | | | | | | +--------+---------+ + + + | 10/03/ | Office | Neurology | Fabián Carias MD | | | 2019 | Visit | | [address] | | | | | | [place] | | | | | | [address] | | | | | | | [...] | | care | | | Clinical Product Specialist-C | | | | | | [...] | | care | | | Clinical Product Specialist-C | | | | | | [...] | | care | | | Clinical Product Specialist-C | | | | | | [...] | | care | | | Clinical Product Specialist-C | | | | | | [...]
--- OUTSIDE RECORDS SUMMARY | ~2019-02-17 | XMS | Encounter Summary ---
Demographics + + + | Address | [address] | | | [place] [address] | + + + | Home Phone [...] Providers + +------+ + | Care Elementary School Teacher Name | Role | Phone | [...] Medication Refill | | 2019 | | [facility] | [address] | | | | | MEDICAL [facility] [address] | [facility], [place] | | | | | [address] [place], | [address] | | | | | [place] [address] | [phone] | | | | | [phone] | | | +--------+--------+ + + + [...] [place] | | | | | | [address] | | | | | | [phone] | | | | | | | | +--------+---------+ + + + | 02/26/ | Office | Urology | Lillie Fowler | | | 2018 | Visit | | [address]IE [address] | | | | | | [address] | | | | | | [place], [place] | | | | | | [address] | | | | | | [phone] | | | | | | | | +--------+---------+ + + + | 03/16/ | Office | Neurology | Theresa, | | | 2018 | Visit | | [address] | | | | | | [address] [place], | | | | | | [place] [address] | | | | | | [phone] | | | | | | | | +--------+---------+ + + + | 04/12/ | Office | Primary Care | Massimo Ramos | | | 2019 | Visit | | MD [address] | | | | | | [place] | | | | | | [address] | | | | | | | | +--------+---------+ + + + | 10/03/ | Office | Neurology | Fabián Carias MD | | | 2019 | Visit | | [address] | | | | | | [place] | | | | | | [address] | | | | | | | [...] | | | care | | | Joiners Supervisor-C | | | | | | [...] | | | care | | | Joiners Supervisor-C | | | | | | [...] | | | care | | | Joiners Supervisor-C | | | | | | [...] | | | care | | | Joiners Supervisor-C | | | | | | [...]
--- OUTSIDE RECORDS SUMMARY | ~2019-02-17 | XMS | Encounter Summary ---
Demographics + + + | Address | [address] | | | [place] [address] | + + + | Home Phone [...] Team Providers + +------+ + | Care Agency Legal Counsel Name | Role | Phone | + [...] | Encounter | HOSPITAL EMERGENCY | [facility] INSTRUMENT MAKER [address] | | | | | CENTER [address] | [place] | | | | | [place] | [address] | | | | | [address] | | | | | | [phone] | | | +--------+ + + + [...] [place] | | | | | | [address] | | | | | | [phone] | | | | | | | | +--------+---------+ + + + | 02/26/ | Office | Urology | Lillie Fowler | | | 2018 | Visit | | [address] | | | | | | [address] | | | | | | [place], [place] | | | | | | [address] | | | | | | [phone] | | | | | | | | +--------+---------+ + + + | 03/16/ | Office | Neurology | Theresa, | | | 2018 | Visit | | [address] | | | | | | [address] [place], | | | | | | [place] [address] | | | | | | [phone] | | | | | | | [...] [place] | | | | | | [address] | | | | | | | [...] | | | care | | | Processor Inspector-C | | | | | | [...] | | | care | | | Processor Inspector-C | | | | | | [...] | | | care | | | Processor Inspector-C | | | | | | [...] | | | care | | | Processor Inspector-C | | | | | | [...] - 1.030 | EXTERNAL | | | [place], | | | LAB | | | [...] | Query left basilar pneumonia. JOB #: [id number] Digitally Released | | | by: Massimo [...] | | | | | JOB #: [id number] | | Digitally Released by: Massimo Nunez | | | | | | Read By: MASSIMO NUNEZ MD | | Date: 01/15/2017 13:45 | | | + + documented in this encounter Visit Diagnoses Not on filedocumented in this encounter"
--- OUTSIDE RECORDS SUMMARY | ~2019-02-17 | XMS | Encounter Summary ---
Demographics + + + | Address | [address] | | | [place] [address] | + + + | Home Phone [...] Team Providers + +------+ + | Care Recruit Instructor Name | Role | Phone | [...] | | | | | | [place] ID | [facility] | | | | | Office/outpa | MEDICAL | Primary Care | | | | | tient visit | [address] | [address] | | | | | est | [place] | [place] | | | | | [address], | [address] | [address] | | | | | Authorized | [address] [place] | Phone: | | | | | For any | MARCELO LANGSOTN | [phone] | | | | | clinically | [address] | Fax: | | | | | necessary | Phone: | [phone] | | | | | Visits for | [phone] | | | | | | 365 days | Fax: | | | | | | AUTH NO: | [phone] | | | | | | [phone] | | | +--------+--------+ + + + + Encounter Details +--------+---------+ + + + | Date | Type | Department | Care Team | Description | +--------+---------+ + + + | 12/31/ | Office | [facility] | Horacio Silvestre, | Type 2 diabetes | | 2017 | Visit | [facility] | DO [address] [place] | mellitus with | | | | [facility] [address] | [facility], [place] | diabetic | | | | [address] [place], | [address] | polyneuropathy, with | | | | [place] [address] | [phone] | long-term current | | | | [phone] | | use of insulin (HCC) | | | | | | (Primary Dx); | | | | | | Atherosclerosis of | | | | | | [place] coronary | | | | | | artery of [place] | | | | | | heart without angina | | | | | | pectoris; Primary | | | | | | osteoarthritis | | | | | | involving multiple | | | | | | joints; Multilevel | | | | | | degenerative disc | | | | | | disease; alf | | | | | | current [...] ins ulin (HCC) Stable 2. Atherosclerosis of [place] coronary artery of [place] heart without angina pectoris Stable 3. Primary [...] dinner). 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 Stable Subjective: [...] CATARACT REMOVAL; Surgeon: Tay Kern MD; Location: [facility] [place] MOHS SURGERY Left [...] [place] | | | | | | [address] | | | | | | [phone] | | | | | | | | +--------+---------+ + + + | 02/26/ | Office | Urology | Lillie Fowler | | | 2018 | Visit | | LILLIE Lopez [address] | | | | | | [address] | | | | | | [place] | | | | | | [address] | | | | | | [phone] | | | | | | | | +--------+---------+ + + + | 03/16/ | Office | Neurology | Theresa, | | | 2018 | Visit | | [address] | | | | | [address] [place], | | | | | | [place] [address] | | | | | | [phone] | | | | | | | | +--------+---------+ + + + | 04/12/ | Office | Primary Care | Massimo Ramos | | | 2019 | Visit | | MD Fer [address] | | | | | | [address] [place] | | | | | | [address] | | | | | | | | +--------+---------+ + + + | 10/03/ | Office | Neurology | Fabián Carias MD | | | 2019 | Visit | | [address] | | | | | | [place] | | | | | | [address] | | | | | | | [...] | | care | | | Instructional Leader-C | | | | | | [...] | | care | | | Instructional Leader-C | | | | | | [...] | | care | | | Instructional Leader-C | | | | | | [...] | | care | | | Instructional Leader-C | | | | | | [...] Primary | + + | Atherosclerosis of [place] coronary artery of [place] heart without angina pectoris | + + | Primary osteoarthritis involving multiple joints | + + | Multilevel degenerative disc disease Degeneration of intervertebral disc, site | | unspecified | + + | alf current use of opiate analgesic Encounter for long-term (current) use of | | other medications | + + documented in this encounter
--- OUTSIDE RECORDS SUMMARY | ~2019-02-17 | XMS | Encounter Summary ---
Demographics + + + | Address | [address] | | | [place] [address] | + + + | Home Phone [...] Providers + +------+ + | Care Beef Skinner Name | Role | Phone | + +------+ + | Horacio Silvestre DO | PCP | | + +------+ + Encounter Details +--------+ + + + + | Date | Type | Department | Care Team | Description | +--------+ + + + + | 12/15/ | Hospital | [facility] | Fabián Carias MD | Left shoulder pain, | | 2018 | Encounter | [facility] XRAY [address] | [address] | unspecified | | | | [address] [place] | [place], [place] | chronicity | | | | [place], [place] | [address] | | | | | [address] | | | | | | [phone] | | | +--------+ + + + [...] 18 | 8 | | 31G X 08/20" 0.5 ML | daily (before meals | [...] tablet by | 84 | 0 | 12/10/19 | | | TABSIndications: | mouth 3 times daily | tablet | | 18 | 8 | | Multilevel | as needed for Pain. 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 | | | | 8 | | inhalation capsule | | | | | | + + + +---------+ + + | traZODone | Take 1 tablet by | 90 | 3 | 12/10/19 | | | (DESYREL) 50 mg | [...] [place] | | | | | | [address] | | | | | | [phone] | | | | | | | | +--------+---------+ + + + | 02/26/ | Office | Urology | Lillie Fowler | | | 2018 | Visit | | [address]ILLIE Lopez [address] | | | | | | [address] | | | | | | [place] | | | | | | [address] | | | | | | [phone] | | | | | | | | +--------+---------+ + + + | 03/16/ | Office | Neurology | Theresa, | | | 2018 | Visit | | [address] | | | | | [address] [place], | | | | | | [place] [address] | | | | | | [phone] | | | | | | | | +--------+---------+ + + + | 04/12/ | Office | Primary Care | Massimo Ramos | | | 2019 | Visit | | MD Fer [address] | | | | | | [place] | | | | | | [address] | | | | | | | | +--------+---------+ + + + | 10/03/ | Office | Neurology | Fabián Carias MD | | | 2020 | Visit | | [address] | | | | | | [place] | | | | | | [address] | | | | | | | [...] | | care | | | General Engineer-C | | | | | | [...] | | care | | | General Engineer-C | | | | | | [...] | | care | | | General Engineer-C | | | | | | [...] | | care | | | General Engineer-C | | | | | | [...] +--------+ + + + | XR SHOULDER LEFT 2 + | Routin | 12/15/2017 | Left shoulder | Results for this | | VW | e | 11:53 AM | pain, unspecified | procedure are in the | | | | PDT | chronicity | results section. | + +--------+ + + + documented in this encounter Results XR Shoulder Left 2 + Vw (12/15/2017 [...] + | Osito, Rad Results In - 12/15/2017 12:07 PM PDT EXAMINATION: | | [...] + | Diagnosis | + + | Left shoulder pain, unspecified chronicity | + + documented in this encounter
--- OUTSIDE RECORDS SUMMARY | ~2019-02-17 | XMS | Encounter Summary ---
Demographics + + + | Address | [address] | | | [place] [address] | + + + | Home Phone [...] Providers + +------+ + | Care Patient Service Specialist Name | Role | Phone | + +------+ + PCP | Unavailable | + +------+ + Encounter Details +--------+ + + + + | Date | Type | Department | Care Team | Description | +--------+ + + + + | 02/23/ | Hospital | [facility] | Esthela Garza | | | 2008 | Encounter | HOSPITAL MED SURG | [address] | | | | [address] [place] | [place], | | | | | [place] | [place] [address] | | | | | [address] | [phone] | | | | | [phone] | | | +--------+ + + + [...] [place] | | | | | | [address] | | | | | | [phone] | | | | | | | | +--------+---------+ + + + | 02/26/ | Office | Urology | Lillie Fowler | | | 2018 | Visit | | LILLIE Lopez [address] | | | | | | [address] | | | | | | [place], [place] | | | | | | [address] | | | | | | [phone] | | | | | | | | +--------+---------+ + + + | 03/16/ | Office | Neurology | Theresa, | | | 2018 | Visit | | [address] | | | | | [address] [place], | | | | | | [place] [address] | | | | | | [phone] | | | | | | | | +--------+---------+ + + + | 04/12/ | Office | Primary Care | Massimo Ramos | | | 2019 | Visit | | MD Fer [address] | | | | | | [address] [place] | | | | | | [address] | | | | | | | | +--------+---------+ + + + | 10/03/ | Office | Neurology | Fabián Carias MD | | | 2019 | Visit | | [address] | | | | | | [place] | | | | | | [address] | | | | | | | [...] | | | care | | | Dredge Operator-C | | | | | | [...] | | | care | | | Dredge Operator-C | | | | | | [...] | | | care | | | Dredge Operator-C | | | | | | [...] | | | care | | | Dredge Operator-C | | | | | | | linical | + +--------+ +---+-----+ + + + | Note: Pt will | | check CBG's daily x1 | | Pt will take Lantis as | | prescribed | + + documented as of this encounter Visit Diagnoses Not on filedocumented in this encounter"
--- OUTSIDE RECORDS SUMMARY | ~2019-02-17 | XMS | Encounter Summary ---
Demographics + + + | Address | [address] | | | [place] [address] | + + + | Home Phone [...] Team Providers + +------+ + | Care Flare Man Name | Role | Phone | + +------+ + | Ryan Gutiérrez MD | PCP | | + +------+ + Encounter Details +--------+ + + + + | Date | Type | Department | Care Team | Description | +--------+ + + + + | 04/03/ | [facility] | Scott De Oliveira | | | 2016 | Encounter | HOSPITAL GENERAL | DO Jalen [address] | | | | | SURGERY [address] | [address] | | | | | [address] [place], | [facility], [place] | | | | | [place] [address] | [address] | | | | | [phone] | | | | | | | [...] [place] | | | | | | [address] | | | | | | [phone] | | | | | | | | +--------+---------+ + + + | 02/26/ | Office | Urology | Lillie Fowler | | | 2018 | Visit | | LILLIE Lopez [address] | | | | | | [address] | | | | | | [place] | | | | | | [address] | | | | | | [phone] | | | | | | | | +--------+---------+ + + + | 03/16/ | Office | Neurology | Theresa, | | | 2018 | Visit | | [address] | | | | | [address] [place], | | | | | | [place] [address] | | | | | | [phone] | | | | | | | | +--------+---------+ + + + | 04/12/ | Office | Primary Care | Massimo Ramos | | | 2019 | Visit | | MD Fer [address] | | | | | | [address] [place] | | | | | | [address] | | | | | | | | +--------+---------+ + + + | 10/03/ | Office | Neurology | Fabián Carias MD | | | 2019 | Visit | | [address] | | | | | | [place] | | | | | | [address] | | | | | | | [...] | | | care | | | Stock Parts Inspector-C | | | | | | [...] | | | care | | | Stock Parts Inspector-C | | | | | | [...] | | | care | | | Stock Parts Inspector-C | | | | | | [...] | | | care | | | Stock Parts Inspector-C | | | | | | | linical | + +--------+ +---+-----+ + + + | Note: Pt will | | check CBG's daily x1 | | Pt will take Lantis as | | prescribed | + + documented as of this encounter Visit Diagnoses Not on filedocumented in this encounter"
--- OUTSIDE RECORDS SUMMARY | ~2019-02-17 | XMS | Encounter Summary ---
Demographics + + + | Address | [address] | | | [place] [address] | + + + | Home Phone [...] Team Providers + +------+ + | Care Pipe Cleaning 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 Name | Role | Phone [...] | | | | [place] | [address] | | | | | [address] | [phone] | | | | | [phone] | | | +--------+ + + + [...] [place] | | | | | | [address] | | | | | | [phone] | | | | | | | | +--------+---------+ + + + | 02/26/ | Office | Urology | Lillie Fowler | | | 2018 | Visit | | LILLIE Lopez [address] | | | | | | [address] | | | | | | [place] | | | | | | [address] | | | | | | [phone] | | | | | | | | +--------+---------+ + + + | 03/16/ | Office | Neurology | Theresa, | | | 2018 | Visit | | [address] | | | | | [address] [place], | | | | | | [place] [address] | | | | | | [phone] | | | | | | | | +--------+---------+ + + + | 04/12/ | Office | Primary Care | Massimo Ramos | | | 2019 | Visit | | MD Fer [address] | | | | | | [place] | | | | | | [address] | | | | | | | | +--------+---------+ + + + | 10/03/ | Office | Neurology | Fabián Carias MD | | | 2019 | Visit | | [address] | | | | | | [place] | | | | | | [address] | | | | | | | [...] | | care | | | Metal Bonding Assembler-C | | | | | | [...] | | care | | | Metal Bonding Assembler-C | | | | | | [...] | | care | | | Metal Bonding Assembler-C | | | | | | [...] | | care | | | Metal Bonding Assembler-C | | | | | | [...] additional information. | | | Job No.: [id number] Read By: DREW GARZA MD | | [...] MRI may provide additional information. Job No.: [id number] Read | | By: DREW GARZA MD [...] | | | | | |Job No.: [id number] | | | |Read By: DREW GARZA MD | | | |Released By: DREW GARZA MD | |Date: 12/27/2015 12:47 | | | | | + + documented in this encounter Visit Diagnoses Not on filedocumented in this encounter"
--- OUTSIDE RECORDS SUMMARY | ~2019-02-17 | XMS | Encounter Summary ---
Demographics + + + | Address | [address] | | | [place] [address] | + + + | Home Phone [...] Team Providers + +------+ + | Care Checker Cashier Name | Role | Phone | [...] | | | thy | [place] | [address] | | | | | Procedures | [address] | Phone: | | | | | PET CT Skull | Phone: | [phone] | | | | | Base To Mid | [phone] | Fax: | | | | | Thigh PET | Fax: | [phone] | | | | | CT Limited | [phone] | | +--------+--------+ + + + + [...] | | | thy | [place] | [address] | | | | | Procedures | [address] | Phone: | | | | | PET CT Skull | Phone: | [phone] | | | | | Base To Mid | [phone] | Fax: | | | | | Thigh PET | Fax: | [phone] | | | | | CT Limited | [phone] | | +--------+--------+ + + + + [...] | | | | [place], [place] | [address] | | | | | [address] | [phone] | | | | | [phone] | | | +--------+ + + + [...] [place] | | | | | | [address] | | | | | | [phone] | | | | | | | | +--------+---------+ + + + | 02/26/ | Office | Urology | Lillie Fowler | | | 2018 | Visit | | [address]ILLIE Lopez [address] | | | | | | [address] | | | | | | [place], [place] | | | | | | [address] | | | | | | [phone] | | | | | | | | +--------+---------+ + + + | 03/16/ | Office | Neurology | Theresa, | | | 2018 | Visit | | [address] | | | | [address] [place], | | | | | | [place] [address] | | | | | | [phone] | | | | | | | | +--------+---------+ + + + | 04/12/ | Office | Primary Care | Massimo Ramos | | | 2019 | Visit | | MD Fer [address] | | | | | | [place] | | | | | | [address] | | | | | | | | +--------+---------+ + + + | 10/03/ | Office | Neurology | Fabián Carias MD | | | 2019 | Visit | | [address] | | | | | | [place] | | | | | | [address] | | | | | | | [...] | | | care | | | Decontamination Technician-C | | | | | | [...] | | | care | | | Decontamination Technician-C | | | | | | [...] | | | care | | | Decontamination Technician-C | | | | | | [...] | | | care | | | Decontamination Technician-C | | | | | | [...]
--- OUTSIDE RECORDS SUMMARY | ~2019-02-17 | XMS | Encounter Summary ---
Demographics + + + | Address | [address] | | | [place] [address] | + + + | Home Phone [...] Team Providers + +------+ + | Care Healthcare Economics Manager Name | Role | Phone | [...] [place], [place] | | | | | [address] | [address] | | | | | [phone] | [phone] | | | | | | | [...] for elective component separation incisional hernia rep [facility]. He underwent the procedure on the day [...] advanced on a diet. He is [facility] home on postoperative day #5 [...] 4. History of hypertension. 5. Postoperative anemia. [facility] Signed and Approved by: LISA TAYLOR [...] [place] | | | | | | [address] | | | | | | [phone] | | | | | | | | +--------+---------+ + + + | 02/26/ | Office | Urology | Lillie Fowler | | | 2018 | Visit | | LILLIE Lopez [address] | | | | | | [address] | | | | | | [place] | | | | | | [address] | | | | | | [phone] | | | | | | | | +--------+---------+ + + + | 03/16/ | Office | Neurology | Theresa, | | | 2018 | Visit | | SHONDA [address] | | | | | | [facility] [address] [place], | | | | | | [place] [address] | | | | | | [phone] | | | | | | | | +--------+---------+ + + + | 04/12/ | Office | Primary Care | Massimo Ramos | | | 2019 | Visit | | MD Fer [address] | | | | | | [place] | | | | | | [address] | | | | | | | | +--------+---------+ + + + | 10/03/ | Office | Neurology | Fabián Carias MD | | | 2019 | Visit | | [address] | | | | | | [place] | | | | | | [address] | | | | | | | [...] | | | care | | | Third Steel Pourer-C | | | | | | | [...] | | | care | | | Third Steel Pourer-C | | | | | | | [...] | | | care | | | Third Steel Pourer-C | | | | | | | [...] | | | care | | | Third Steel Pourer-C | | | | | | | [...] - 1.030 | EXTERNAL | | | Reva, | | | LAB | | | [...]
--- OUTSIDE RECORDS SUMMARY | ~2019-02-17 | XMS | Encounter Summary ---
Demographics + + + | Address | [address] | | | [place] [address] | + + + | Home Phone [...] Team Providers + +------+ + | Care Decorative Engraver Name | Role | Phone | [...] + + | 10/02/ | Hospital | [facility] | Juan Williamson | Delirium (Primary | | 2019 - | Encounter | HOSPITAL MED SURG | MD I[address] | Dx); Fever, | | | | [address] | [facility] | unspecified fever | | 10/06/ | | [place], [place] | [place] [address] | cause; Hypoxemia; | | 2019 | | [address] | [phone] | Acute exacerbation | | | | [phone] | | of chronic | | | | | Kim Mary, | obstructive | | | | | [address] | pulmonary disease | | | | | [place] [address] | (COPD) ([facility]); | | | | | [phone] | Pneumonia due to | | | | | | infectious organism, | | | | | Esteban Calvillo, | unspecified | | | | | MD [address] | laterality, | | | | | [place] [address] | unspecified part of | | | | | [phone] | lung; Urinary tract | | | | | | infection with | | | | | Orr, Luciano, MD [address] | hematuria, site | | | | | [address] | unspecified; | | | | | [place] | Hypomagnesemia; | | | | | [address] | Dehydration; | | | | | [phone] | Metabolic | | | | | [...] marly 06/30/2017 Panlobular emphysema 08/08/2017 Atherosclerosis of [place] coronary artery of [place] heart without angina pectoris 08/08 On potassium [...] Problems Diagnosis Date Noted Essential hypertension 03/07/2017 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 Dr Davy Bhatti 10/15/18 12:45 check in time Korin Lojaannie, DO [address] [place] [address] Korin Messerantonio, DO [address] [place] [address] In 1 week Electronically signed by: Luciano Orr 10/12/2018 7:18 [facility] Time spent discharging this patient: Greater than 30 minutes documented in this encounter Discharge Instructions AttachmentsThe following attachments cannot be sent through Care Everywhere.Fall Prevention (Uzbek)Falls, Preventing, Are You At Risk of Falling? (Uzbek)Adult, Pneumonia (Uzbek) Bladder Infection, Male (Adult) (Uzbek)documented in this encounter Medications at Time of [...] of this encounter Progress Notes Scott Caballero, Bulbs Farmworker - 10/06/2018 4:08 PM PDT PHARMACY SERVICES: [...] this time. Electronically signed by: Scott Caballero, Bulbs Farmworker 10/06/2018 16:08Electronically sign ed by Cynthia Mendes, [...] left base that improved with cough. Other chio clear to auscultation bilaterally. Abdomen: Benign. Extremities: [...] signed by: Esteban Calvillo 10/05/2018 11:57 [facility] Portions of this chart may have been created with voice recognition software. Occasional wo rd or "sound-alike" substitutions may have occurred due to the inherent limitation of voice recognition software. Read the chart carefully and recognize, using context, where these sub stitutions have occurred. Esteban Mccormick MD - 10/04/2018 2:38 PM PDT MEDICAL HOSPITALIST TEAM PROGRESS NOTE Name:[facility] Day # 2 Reason for admission [...] 3.2 Pertinent micro results: Culture, Urine Order: [id number] - Reflex for Order [id number] Status: Final result Visible to patient: No (Not Released) Next appt: 10/26/2018 at 13:00 in Primary Care (Faraz Tejada, NENO) Specimen Information: Urine, Clean Catch Culture Result 30,000 - 40,000 CFU/ml Mixed jonah (multiple morphologies present) Suggests contamination with urogenital or skin jonah. Resulting Agency: [facility] Specimen Collected: 09/30/18 16:22 Last Resulted: 10/02/18 Electronically signed by: Esteban Calvillo 10/04/2018 14:38 [facility] Portions of [...] #2 metabolic encephalopathy. Significantly improved. I did activities counselor the family on the waxi ng [...] signed by: Esteban Calvillo 10/03/2018 12:46 [facility] Portions of this chart may have been created with voice recognition software. Occasional wo rd or "sound-alike" substitutions may have occurred due to the inherent limitation of voice recognition software. Read the chart carefully and recognize, using context, where these sub stitutions have occurred. Cedric Ibarra , Bulbs Farmworker - 10/03/2018 9:01 AM PDTPHARMACY SERVICES: ADMISSION [...] performed and electronically signed by Cedric Chiu, Bulbs Farmworker 10/03/2018 9:01 Associated attestation - Isadora Calvillo, [...] [place] | | | | | | [address] | | | | | | [phone] | | | | | | | | +--------+---------+ + + + | 02/26/ | Office | Urology | Lillie Fowler | | | 2018 | Visit | | LILLIE Lopez [address] | | | | | | [address] | | | | | | [place], [place] | | | | | | [address] | | | | | | [phone] | | | | | | | | +--------+---------+ + + + | 03/16/ | Office | Neurology | Theresa, | | | 2018 | Visit | | [address] | | | [address] [place], | | | | | | [place] [address] | | | | | | [phone] | | | | | | | | +--------+---------+ + + + | 04/12/ | Office | Primary Care | Richard Massimo Hsi | | | 2019 | Visit | | MD Fer [address] | | | | | | [place] | | | | | | [address] | | | | | | | | +--------+---------+ + + + | 10/03/ | Office | Neurology | Fabián Carias MD | | | 2019 | Visit | | [address] | | | | | | [place] | | | | | | [address] | | | | | | | [...] | | | care | | | Peoplesoft Taleo Manager-C | | | | | | [...] | | | care | | | Peoplesoft Taleo Manager-C | | | | | | [...] | | | care | | | Peoplesoft Taleo Manager-C | | | | | | [...] | | | care | | | Peoplesoft Taleo Manager-C | | | | | | [...] J?MRN: | | | | | | [id number] | | | [id number] | | | riteri | | | [...] | | | ified | | | Ywa | | | 7, | | | [...] | | [place] | | | Advertising Sales Associate | | | al | | | [...] | | [place] | | | Advertising Sales Associate | | | al | | | [...] | | [place] | | | Advertising Sales Associate | | | al | | | [...] | | [place] | | | Advertising Sales Associate | | | al | | | [...] | | [place] | | | Advertising Sales Associate | | | al | | | [...] | | | [id number] | | | [id number] | | | -[id number] | | | [...] + + | [facility] [facility] | [address] | [place] [address] | [phone] | | H[facility]PITAL [facility] | | | [...] + + | [place] [facility] | [address] | [place] [address] | [phone] | | HOSPITAL LAB[facility]ORY | | | [...] + + | [place] [facility] | [address] | [place] [address] | [phone] | | HOSPITAL LAB[facility] | | | [...] + + | [place] [facility] | [address] | [place] [address] | [phone] | | HOSPITAL LAB[facility] | | | [...] + + | [facility] | [address] | [place] [address] | [phone] | | HOSPITAL LAB[facility] | | | [...] + + | [facility] [facility] | [address] | [place] [address] | [phone] | | HOSPITAL [facility] | | | [...] + + | [facility] | [address] | [place] [address] | [phone] | | HOSPITAL [facility] | | | [...] | mL/min/1.73m2 | [facility] | | [facility] | | | [facility] | | | [...] + + | [place] [facility] | [address] | [place] [address] | [phone] | | HOSPITAL LAB[facility]ORY | | | [...] + + | [facility] | [address] | [place] [address] | [phone] | | H[facility]PITAL [facility] | | | [...] + + | [place] [facility] | [address] | [place] [address] | [phone] | | HOSPITAL LAB[facility]ORY | | | [...] + + | [facility] | [address] | [place] [address] | [phone] | | HOSPITAL LAB[facility]ORY | | | [...] + + | [place] [facility] | [address] | [place] [address] | [phone] | | HOSPITAL LAB[facility] | | | [...] + + | [place] [facility] | [address] | [place] [address] | [phone] | | HOSPITAL LAB[facility] | | | [...] + + | [place] [facility] | [address] | [place] [address] | [phone] | | HOSPITAL LAB[facility] | | | [...] | mL/min/1.73m2 | [facility] | | | [facility] | | | [facility] | | | [...] + + | [place] [facility] | [address] | [place] [address] | [phone] | | HOSPITAL LAB[facility]ORY | | | [...] + + | [place] [facility] | [address] | [place] [address] | [phone] | | HOSPITAL LAB[facility] | | | [...] + + | [place] [facility] | [address] | [place] [address] | [phone] | | HOSPITAL LAB[facility] | | | [...] + + | [place] [facility] | [address] | [place] [address] | [phone] | | HOSPITAL LAB[facility] | | | [...] + + | [facility] [facility] | [address] | [place] [address] | [phone] | | HOSPITAL LAB[facility] | | | [...] + + | [facility] [facility] | [address] | [place] [address] | [phone] | | HOSPITAL LAB[facility] | | | [...] + + | [place] [facility] | [address] | [place] [address] | [phone] | | HOSPITAL [facility] | | | [...] + + | [place] [facility] | [address] | [place] [address] | [phone] | | HOSPITAL LAB[facility] | | | [...] + + | [place] [facility] | [address] | [place] [address] | [phone] | | H[facility]PITAL [facility] | | | [...] + + | [place] [facility] | [address] | [place] [address] | [phone] | | HOSPITAL [facility] | | | [...] | mL/min/1.73m2 | [facility] | | | [facility] | | | [facility] | | | [...] + + | [place] [facility] | [address] | [place] [address] | [phone] | | [facility]ITAL [facility] | | | [...] + + | [facility] | [address] | [place] [address] | [phone] | | [facility]PITAL [facility] | | | [...] lateral airspace opacity. Flattening of the hemidiaphragm. Pediatric Oncology Nurse ior left lower lobe mass | |is [...] + + | [facility] | [address] | [place] [address] | [phone] | | HOSPITAL [facility] | | | [...] Interval: 408 msP | TRACEMASTER | | [place]: 24 degQRS [place]: -22 degT Wave [place]: 18 degP-R Interval: 172 | | | [...] | cutoff point for the diagnosis of [place] is 0.8 ng/mL for the Troponin I | | | method. | | + + + + + + + + | Performing | Address | City/State/Zipcode | Phone Number | | Organization | | | | + + + + + | [facility] | [address] | [place] [address] | [phone] | | [facility] | | | [...] + + | [facility] | [address] | [place] [address] | [phone] | | H[facility]PITAL [facility] | | | [...] - 1.030 | [place] | | | [place] | | | [facility] | | | [...] + + | [place] [facility] | [address] | [place] [address] | [phone] | | HOSPITAL [facility] | | | [...] + + | [place] [facility] | [address] | [place] [address] | [phone] | | [facility]ITAL [facility] | | | [...] + + | [place] [facility] | [address] | [place] [address] | [phone] | | H[facility]PITAL [facility] | | | [...] + + | [place] [facility] | [address] | [place] [address] | [phone] | | HOSPITAL [facility] | | | [...] + | A study performed by the client sales and service officer using this assay showed a 99% | [...] + + | [facility] | [address] | [place] [address] | [phone] | | H[facility]PITAL [facility] | | | [...] + + | [facility] | [address] | [place] [address] | [phone] | | HOSPITAL [facility] | | | [...] + + | [facility] | [address] | [place] [address] | [phone] | | HOSPITAL [facility] | | | [...] | mL/min/1.73m2 | [facility] | | | [facility] | RATE,ESTIMATED | | HOSPITAL | | | | mL/min/1.31x4Pomr than | | LABORATORY | | | [...] + + | [facility] | [address] | [place] [address] | [phone] | | HOSPITAL LAB[facility] | | | [...] + + | [facility] | [address] | [place] [address] | [phone] | | HOSPITAL [facility] | | | [...] + + | [facility] | [address] | [place] [address] | [phone] | | HOSPITAL [facility] | | | [...] + + | [facility] | [address] | [place] [address] | [phone] | | HOSPITAL LAB[facility] | | | [...] + + | [facility] | [address] | [place] [address] | [phone] | | HOSPITAL LAB[facility] | | | [...] + + | [facility] | [address] | [place] [address] | [phone] | | HOSPITAL LAB[facility]ORY | | | [...] | | | | | | | [address] Use NIGHT DOSE for | | | | | | | doses scheduled: HS, 3AM, | | | | | | | Nighttime 4396-8517 If the BG is | | | [...]
--- OUTSIDE RECORDS SUMMARY | ~2019-02-17 | XMS | Encounter Summary ---
Demographics + + + | Address | [address] | | | [place] [address] | + + + | Home Phone [...] Team Providers + +------+ + | Care Sustainable Communities Designer Name | Role | Phone | [...] | | | DR [address], | [facility] [place] | | | | | [place] [address] | [address] | | | | | [phone] | | | | | | | [...] [place] | | | | | | [address] | | | | | | [phone] | | | | | | | | +--------+---------+ + + + | 02/26/ | Office | Urology | Lillie Fowler | | | 2018 | Visit | | LILLIE Lopez [address] | | | | | | [address] | | | | | | [place] | | | | | | [address] | | | | | | [phone] | | | | | | | | +--------+---------+ + + + | 03/16/ | Office | Neurology | Theresa, | | | 2018 | Visit | | [address] | | | | | [address] [place], | | | | | | [place] [address] | | | | | | [phone] | | | | | | | | +--------+---------+ + + + | 04/12/ | Office | Primary Care | Massimo Ramos | | | 2019 | Visit | | MD Fer [address] | | | | | | [place] | | | | | | [address] | | | | | | | | +--------+---------+ + + + | 10/03/ | Office | Neurology | Fabián Carias MD | | | 2019 | Visit | | [address] | | | | | | [place] | | | | | | [address] | | | | | | | [...] | | | care | | | Snuff Drier-C | | | | | | [...] | | | care | | | Snuff Drier-C | | | | | | [...] | | | care | | | Snuff Drier-C | | | | | | [...] | | | care | | | Snuff Drier-C | | | | | | | linical | + +--------+ +---+-----+ + + + | Note: Pt will | | check CBG's daily x1 | | Pt will take Lantis as | | prescribed | + + documented as of this encounter Visit Diagnoses Not on filedocumented in this encounter"
--- OUTSIDE RECORDS SUMMARY | ~2019-02-17 | XMS | Encounter Summary ---
Demographics + + + | Address | [address] | | | [place] [address] | + + + | Home Phone [...] Team Providers + +------+ + | Care Gold Leaf Laborer Name | Role | Phone | [...] 2016 | Encounter | HOSPITAL EMERGENCY | WELLNESS NURSE RN [address] | | | | | CENTER [address] | [place] | | | | | [place] | [address] | | | | | [address] | | | | | | [phone] | | | +--------+ + + + [...] [place] | | | | | | [address] | | | | | | [phone] | | | | | | | | +--------+---------+ + + + | 02/26/ | Office | Urology | Lillie Fowler | | | 2018 | Visit | | LILLIE Lopez [address] | | | | | | [address] | | | | | | [place] | | | | | | [address] | | | | | | [phone] | | | | | | | | +--------+---------+ + + + | 03/16/ | Office | Neurology | Theresa, | | | 2018 | Visit | | [address] | [address] [place], | | | | | | [place] [address] | | | | | | [phone] | | | | | | | | +--------+---------+ + + + | 04/12/ | Office | Primary Care | Massimo Ramos | | | 2019 | Visit | | MD Fer [address] | | | | | | [place] | | | | | | [address] | | | | | | | | +--------+---------+ + + + | 10/03/ | Office | Neurology | Fabián Carias MD | | | 2019 | Visit | | [address] | | | | | | [place] | | | | | | [address] | | | | | | | [...] | | care | | | Industrial Cleaning Technician-C | | | | | | [...] | | care | | | Industrial Cleaning Technician-C | | | | | | [...] | | care | | | Industrial Cleaning Technician-C | | | | | | [...] | | care | | | Industrial Cleaning Technician-C | | | | | | [...] swelling. Query bursitis. Job #: | | [id number] Read By: Released By: MASSIMO NUNEZ MD [...]
--- OUTSIDE RECORDS SUMMARY | ~2019-02-17 | XMS | Encounter Summary ---
Demographics + + + | Address | [address] | | | [place] [address] | + + + | Home Phone [...] Team Providers + +------+ + | Care Mortgage Processing Clerk Name | Role | Phone | [...] read by | [place] | [place] [address] | | | | | his 2pm appt | [place], [place] | Phone: | | | | | with | [address] | [phone] | | | | | neurology. | Phone: | Fax: | | | | | tkm 07/20/18 | [phone] | [phone] | | | | | [place] Auth#: | Fax: | | | | | | [id number] | [phone] | | | | | | Valid [...] | Hospital | [place] [facility] | Fabián Carias MD | Syncope, unspecified | | 2019 | Encounter | Hospital Ultrasound | [address] | syncope type | | | | [address] [place] | [place], [place] | | | | | [place], [place] | [address] | | | | | [address] | | | | | | [phone] | | | +--------+ + + + [...] [place] | | | | | | [address] | | | | | | [phone] | | | | | | | | +--------+---------+ + + + | 02/26/ | Office | Urology | Malcolm Lillie | | | 2018 | Visit | | [address] | | | | | [address] | | | | | | [place], [place] | | | | | | [address] | | | | | | [phone] | | | | | | | | +--------+---------+ + + + | 03/16/ | Office | Neurology | Theresa, | | | 2018 | Visit | | [address] | | | | [address] [place], | | | | | | [place] [address] | | | | | | [phone] | | | | | | | | +--------+---------+ + + + | 04/12/ | Office | Primary Care | Massimo Ramos | | | 2019 | Visit | | MD Fer [address] | | | | | | DR [place], [place] | | | | | | [address] | | | | | | | | +--------+---------+ + + + | 10/03/ | Office | Neurology | Fabián Carias MD | | | 2019 | Visit | | [address] | | | | | | [place] | | | | | | [address] | | | | | | | [...] | | care | | | It Specialist-C | | | | | | [...] | | care | | | It Specialist-C | | | | | | [...] | | care | | | It Specialist-C | | | | | | [...] | | care | | | It Specialist-C | | | | | | [...]
--- OUTSIDE RECORDS SUMMARY | ~2019-02-17 | XMS | Encounter Summary ---
Demographics + + + | Address | [address] | | | [place] [address] | + + + | Home Phone [...] Team Providers + +------+ + | Care Novelty Maker Name | Role | Phone | [...] | pain, | [place] | [address] | | | | | bilateral | [place], [place] | Phone: | | | | | Procedures | [address] | [phone] | | | | | MRI Cervical | Phone: | Fax: | | | | | Spine wo | [phone] | [phone] | | | | | Contrast | Fax: | | | | | | | [phone] | | +--------+--------+ + + + + [...] | pain, | [place] | [address] | | | | | bilateral | [place], [place] | Phone: | | | | | Procedures | [address] | [phone] | | | | | MRI Cervical | Phone: | Fax: | | | | | Spine wo | [phone] | [phone] | | | | | Contrast | Fax: | | | | | | | [phone] | | +--------+--------+ + + + + [...] | [address] | | | | | [address] | | | | | | [phone] | | | +--------+ + + + [...] | | | use of insulin ([facility]) | | | | | [...] | | | use of insulin ([facility]) | | | | | [...] | | | | | | disease, adjunct faculty for medical terminology | | | | | | | [...] [place] | | | | | | [address] | | | | | | [phone] | | | | | | | | +--------+---------+ + + + | 02/26/ | Office | Urology | Lillie Fowler | | | 2019 | Visit | | LILLIE Lopez [address] | | | | | | [address] | | | | | | [place], [place] | | | | | | [address] | | | | | | [phone] | | | | | | | | +--------+---------+ + + + | 03/16/ | Office | Neurology | Theresa, | | | 2018 | Visit | | [address] | | | | | [address] [place], | | | | | | [place] [address] | | | | | | [phone] | | | | | | | | +--------+---------+ + + + | 04/12/ | Office | Primary Care | Massimo Ramos Pedro Luis | | | 2019 | Visit | | MD Fer [address] | | | | | | [place] | | | | | | [address] | | | | | | | | +--------+---------+ + + + | 10/03/ | Office | Neurology | Fabián Carias MD | | | 2019 | Visit | | [address] | | | | | | [place] | | | | | | [address] | | | | | | | [...] | | | care | | | Chocolate Maker-C | | | | | | [...] | | | care | | | Chocolate Maker-C | | | | | | [...] | | | care | | | Chocolate Maker-C | | | | | | [...] | | | care | | | Chocolate Maker-C | | | | | | [...]
--- OUTSIDE RECORDS SUMMARY | ~2019-02-17 | XMS | Encounter Summary ---
Demographics + + + | Address | [address] | | | [place] [address] | + + + | Home Phone [...] Team Providers + +------+ + | Care Mobile Phlebotomist Name | Role | Phone | + [...] [address] | | | | | [place] [address] | | | | | | [phone] | | | +--------+ + + + [...] [place] | | | | | | [address] | | | | | | [phone] | | | | | | | | +--------+---------+ + + + | 02/26/ | Office | Urology | Lillie Fowler | | | 2018 | Visit | | [address]ILLIE Lopez [address] | | | | | | [address] | | | | | | [place], [place] | | | | | | [address] | | | | | | [phone] | | | | | | | | +--------+---------+ + + + | 03/16/ | Office | Neurology | Theresa, | | | 2018 | Visit | | [address] | | | | | [address] [place], | | | | | | [place] [address] | | | | | | [phone] | | | | | | | | +--------+---------+ + + + | 04/12/ | Office | Primary Care | Massimo Ramos Pedro Luis | | | 2019 | Visit | | MD Fer [address] | | | | | | [place] | | | | | | [address] | | | | | | | | +--------+---------+ + + + | 10/03/ | Office | Neurology | Fabián Carias MD | | | 2019 | Visit | | [address] | | | | | | [place] | | | | | | [address] | | | | | | | [...] | | | care | | | Tiger 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-C | | | | | [...] | | | care | | | Tiger 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-C | | | | | [...] | | | care | | | Tiger 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-C | | | | | [...] | | | care | | | Tiger 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-C | | | | | [...]
--- OUTSIDE RECORDS SUMMARY | ~2019-02-17 | XMS | Encounter Summary ---
Demographics + + + | Address | [address] | | | [place] [address] | + + + | Home Phone [...] Team Providers + +------+ + | Care Licensed Marriage And Family Therapist Name | Role | Phone | [...] | Diagnoses | [place] | [facility] | | | | | | [place] MD | [facility] | | | | | Office/outpa | MEDICAL | Primary Care | | | | | tient visit | [place] [address] | [address] | | | | | est | [place] | [place] | | | | | [address], | [address] | [address] | | | | | Authorized | [address] [place] | Phone: | | | | | For any | [place] | [phone] | | | | | clinically | [address] | Fax: | | | | | necessary | Phone: | [phone] | | | | | Visits for | [phone] | | | | | | 365 days | Fax: | | | | | | AUTH NO: | [phone] | | | | | | [phone] | | | +--------+--------+ + + + + Encounter Details +--------+---------+ + + + | Date | Type | Department | Care Team | Description | +--------+---------+ + + + | 06/09/ | Office | [place] [facility] | Horacio Silvestre, | Acute renal failure, | | 2019 | Visit | [facility] | [facility] [address] | unspecified acute | | | | [facility] | [facility], [place] | renal failure type | | | | [facility], | [address] | ([facility]) (Primary Dx); | | | | [place] [address] | [phone] | Bilateral impacted | | | | [phone] | | cerumen; Acute | | | [...] to f/u on acute renal insufficiency from [facility] hospitalization 05/26/18. He i s doing [...] [place] | | | | | | [address] | | | | | | [phone] | | | | | | | | +--------+---------+ + + + | 02/26/ | Office | Urology | Lillie Fowler | | | 2018 | Visit | | LILLIE Lopez [address] | | | | | | [address] | | | | | | [place], [place] | | | | | | [address] | | | | | | [phone] | | | | | | | | +--------+---------+ + + + | 03/16/ | Office | Neurology | Theresa, | | | 2019 | Visit | | SHONDA Mckinney [address] | | | | | | [address] [place], | | | | | | [place] [address] | | | | | | [phone] | | | | | | | | +--------+---------+ + + + | 04/12/ | Office | Primary Care | Massimo Ramos | | | 2019 | Visit | | MD Fer [address] | | | | | | [place] | | | | | | [address] | | | | | | | | +--------+---------+ + + + | 10/03/ | Office | Neurology | Fabián Carias MD | | | 2019 | Visit | | [address] | | | | | | [place] | | | | | | [phone] | | | | | | | [...] | | | care | | | [employer] | | | | | | | [...] | | | care | | | [employer] | | | | | | | [...] | | | care | | | [employer] | | | | | | | [...] | | | care | | | [employer] | | | | | | | [...]
--- OUTSIDE RECORDS SUMMARY | ~2019-02-17 | XMS | Encounter Summary ---
Demographics + + + | Address | [address] | | | [place] [address] | + + + | Home Phone [...] Providers + +------+ + | Care Steel Buffer Name | Role | Phone | + [...] | | | CENTER [address] | [facility] | | | | | [address] [place], [place] | [place] [address] | | | | | [address] | [phone] | | | | | [phone] | | | +--------+ + + + [...] [place] | | | | | | [address] | | | | | | [phone] | | | | | | | | +--------+---------+ + + + | 02/26/ | Office | Urology | Lillie Fowler | | | 2018 | Visit | | [address] | | | | | | [address] | | | | | | [place] | | | | | | [address] | | | | | | [phone] | | | | | | | | +--------+---------+ + + + | 03/16/ | Office | Neurology | Theresa, | | | 2018 | Visit | | [address] | | | | | | [address] [place], | | | | | | [place] [address] | | | | | | [phone] | | | | | | | | +--------+---------+ + + + | 04/12/ | Office | Primary Care | Massimo Ramos | | | 2019 | Visit | | MD [address] | | | | | | [place] | | | | | | [address] | | | | | | | | +--------+---------+ + + + | 10/03/ | Office | Neurology | Fabián Carias MD | | | 2019 | Visit | | [address] | | | | | | [place] | | | | | | [address] | | | | | | | [...] | | care | | | Wood Engraver-C | | | | | | [...] | | care | | | Wood Engraver-C | | | | | | [...] | | care | | | Wood Engraver-C | | | | | | [...] | | care | | | Wood Engraver-C | | | | | | [...] - 1.030 | EXTERNAL | | | [place], | | | LAB | | | [...] | Inguinal hernias containing fat. Job #: [id number] Read By: MASSIMO Fung | | MD [...]
--- OUTSIDE RECORDS SUMMARY | ~2019-02-17 | XMS | Encounter Summary ---
Demographics + + + | Address | [address] | | | [place] [address] | + + + | Home Phone [...] Team Providers + +------+ + | Care White Shoe Ragger Name | Role | Phone | + [...] | | | [facility] | Auxiliary Equipment Tender-Clinical | | | | | [address] [facility], | | | | | | [place] [address] | | | | | | [phone] | | | +--------+ + + + [...] [place] | | | | | | [address] | | | | | | [phone] | | | | | | | | +--------+---------+ + + + | 02/26/ | Office | Urology | Lillie Fowler | | | 2019 | Visit | | [address] | | | | | | [address] | | | | | | [place], [place] | | | | | | [address] | | | | | | [phone] | | | | | | | | +--------+---------+ + + + | 03/16/ | Office | Neurology | Theresa, | | | 2018 | Visit | | [address] | | | | | | [address] [place], | | | | | | [place] [address] | | | | | | [phone] | | | | | | | | +--------+---------+ + + + | 04/12/ | Office | Primary Care | Massimo Ramos | | | 2019 | Visit | | MD [address] | | | | | | [place] | | | | | | [address] | | | | | | | | +--------+---------+ + + + | 10/03/ | Office | Neurology | Fabián Carias MD | | | 2019 | Visit | | [address] | | | | | | [place] | | | | | | [address] | | | | | | | [...] | | | care | | | Auxiliary Equipment Tender-C | | | | | | [...] | | | care | | | Auxiliary Equipment Tender-C | | | | | | [...] | | | care | | | Auxiliary Equipment Tender-C | | | | | | [...] | | | care | | | Auxiliary Equipment Tender-C | | | | | | [...]
--- OUTSIDE RECORDS SUMMARY | ~2019-02-17 | XMS | Encounter Summary ---
Demographics + + + | Address | [address] | | | [place] [address] | + + + | Home Phone [...] Team Providers + +------+ + | Care Sports Physiotherapist Name | Role | Phone | + [...] | [address] [place], [place] | [place] [address] | | | | | [address] | [phone] | | | | | [phone] | | | +--------+ + + + [...] [place] | | | | | | [address] | | | | | | [phone] | | | | | | | | +--------+---------+ + + + | 02/26/ | Office | Urology | Lillie Fowler | | | 2018 | Visit | | [address] | | | | | | [address] | | | | | | [place] | | | | | | [address] | | | | | | [phone] | | | | | | | | +--------+---------+ + + + | 03/16/ | Office | Neurology | Theresa, | | | 2018 | Visit | | [address] | | | | | | [address] [place], | | | | | | [place] [address] | | | | | | [phone] | | | | | | | | +--------+---------+ + + + | 04/12/ | Office | Primary Care | Massimo Ramos | | | 2019 | Visit | | MD [address] | | | | | | [place] | | | | | | [address] | | | | | | | | +--------+---------+ + + + | 10/03/ | Office | Neurology | Fabián Carias MD | | | 2019 | Visit | | [address] | | | | | | [place] | | | | | | [address] | | | | | | | [...] | | | care | | | Scrapper-C | | | | | | | [...] | | | care | | | Scrapper-C | | | | | | | [...] | | | care | | | Scrapper-C | | | | | | | [...] | | | care | | | Scrapper-C | | | | | | | [...]
--- OUTSIDE RECORDS SUMMARY | ~2019-02-17 | XMS | Encounter Summary ---
Demographics + + + | Address | [address] | | | [place] [address] | + + + | Home Phone [...] Team Providers + +------+ + | Care Software Reliability Engineer Name | Role | Phone | [...] | [address] | [place] [address] | | | | | [place] | [phone] | | | | | [address] | | | | | | [phone] | | | +--------+ + + + [...] | | | | | ([facility]), Multilevel | | | | | | [...] [place] | | | | | | [address] | | | | | | [phone] | | | | | | | | +--------+---------+ + + + | 02/26/ | Office | Urology | Lillie Fowler | | | 2018 | Visit | | [address] | | | | | | [address] | | | | | | [place], [place] | | | | | | [address] | | | | | | [phone] | | | | | | | | +--------+---------+ + + + | 03/16/ | Office | Neurology | Theresa, | | | 2018 | Visit | | [address] | | | | | | [address] [place], | | | | | | [place] [address] | | | | | | [phone] | | | | | | | | +--------+---------+ + + + | 04/12/ | Office | Primary Care | Massimo Ramos | | | 2019 | Visit | | MD [address] | | | | | | [place] | | | | | | [address] | | | | | | | | +--------+---------+ + + + | 10/03/ | Office | Neurology | Fabián Carias MD | | | 2020 | Visit | | [address] | | | | | | [place] | | | | | | [address] | | | | | | | [...] | | | care | | | Theater Set Production Designer-C | | | | | | [...] | | | care | | | Theater Set Production Designer-C | | | | | | [...] | | | care | | | Theater Set Production Designer-C | | | | | | [...] | | | care | | | Theater Set Production Designer-C | | | | | | [...]
--- OUTSIDE RECORDS SUMMARY | ~2019-02-17 | XMS | Encounter Summary ---
Demographics + + + | Address | [address] | | | [place] [address] | + + + | Home Phone [...] Team Providers + +------+ + | Care Hearing Impaired Itinerant Teacher Name | Role | Phone | [...] | | unspecified | [place], [place] | [address] Phone: | | | | | back pain | [address] | [phone] | | | | | laterality | Phone: | Fax: | | | | | Other | [phone] | [phone] | | | | | amnesia | Fax: | | | | | | Procedures | [phone] | | | | | | SD INJECT | | | | | | [...] [address] | | | | | [place] [address] | | | | | | [phone] | | | +--------+ + + + [...] [place] | | | | | | [address] | | | | | | [phone] | | | | | | | | +--------+---------+ + + + | 02/26/ | Office | Urology | Lillie Fowler | | | 2018 | Visit | | [address] | | | | | | [address] | | | | | | [place], [place] | | | | | | [address] | | | | | | [phone] | | | | | | | | +--------+---------+ + + + | 03/16/ | Office | Neurology | Theresa, | | | 2018 | Visit | | [address] | | | | | | [address] [place], | | | | | | [place] [address] | | | | | | [phone] | | | | | | | | +--------+---------+ + + + | 04/12/ | Office | Primary Care | Massimo Ramos | | | 2019 | Visit | | MD [address] | | | | | | [place] | | | | | | [address] | | | | | | | | +--------+---------+ + + + | 10/03/ | Office | Neurology | Fabián Carias MD | | | 2019 | Visit | | [address] | | | | | | [place] | | | | | | [address] | | | | | | | [...] | | | care | | | Auto Bench Mechanic-C | | | | | | [...] | | | care | | | Auto Bench Mechanic-C | | | | | | [...] | | | care | | | Auto Bench Mechanic-C | | | | | | [...] | | | care | | | Auto Bench Mechanic-C | | | | | | [...]
--- OUTSIDE RECORDS SUMMARY | ~2019-02-17 | XMS | Encounter Summary ---
Demographics + + + | Address | [address] | | | [place] [address] | + + + | Home Phone [...] Providers + +------+ + | Care Parts Fabricator Name | Role | Phone | + +------+ + | Ryan Gutiérrez MD | PCP | | + +------+ + Encounter Details +--------+ + + + + | Date | Type | Department | Care Team | Description | +--------+ + + + + | 01/08/ | Hospital | [place] [facility] | Horacio Silvestre, | | | 2016 | Encounter | [facility] | DO [address] [place] | | | | | [facility] | [facility], [place] | | | | | [address] [facility] [place], | [address] | | | | | [place] [address] | [phone] | | | | | [phone] | | | +--------+ + + + [...] [place] | | | | | | [address] | | | | | | [phone] | | | | | | | | +--------+---------+ + + + | 02/26/ | Office | Urology | Lillie Fowler | | | 2018 | Visit | | [address] | | | | | | [address] | | | | | | [place] | | | | | | [address] | | | | | | [phone] | | | | | | | | +--------+---------+ + + + | 03/16/ | Office | Neurology | Theresa, | | | 2018 | Visit | | [address] | | | | | | [address] [place], | | | | | | [place] [address] | | | | | | [phone] | | | | | | | | +--------+---------+ + + + | 04/12/ | Office | Primary Care | Massimo Ramos | | | 2019 | Visit | | MD Fer [address] | | | | | | [place] | | | | | | [address] | | | | | | | | +--------+---------+ + + + | 10/03/ | Office | Neurology | Fabián Carias MD | | | 2019 | Visit | | [address] | | | | | | [place] | | | | | | [address] | | | | | | | [...] | | care | | | Machine Oiler-C | | | | | | | [...] | | care | | | Machine Oiler-C | | | | | | | [...] | | care | | | Machine Oiler-C | | | | | | | [...] | | care | | | Machine Oiler-C | | | | | | | linical | + +--------+ +---+-----+ + + + | Note: Pt will | | check CBG's daily x1 | | Pt will take Lantis as | | prescribed | + + documented as of this encounter Visit Diagnoses Not on filedocumented in this encounter"
--- OUTSIDE RECORDS SUMMARY | ~2019-02-17 | XMS | Encounter Summary ---
Demographics + + + | Address | [address] | | | [place] [address] | + + + | Home Phone [...] Team Providers + +------+ + | Care Medical Physics Professor Name | Role | Phone | [...] | | | | [place], [place] | [address] | | | | | [address] | [phone] | | | | | [phone] | | | +--------+ + + + [...] [place] | | | | | | [address] | | | | | | [phone] | | | | | | | | +--------+---------+ + + + | 02/26/ | Office | Urology | Lillie Fowler | | | 2018 | Visit | | [address] | | | | | | [address] | | | | | | [place] | | | | | | [address] | | | | | | [phone] | | | | | | | | +--------+---------+ + + + | 03/16/ | Office | Neurology | Theresa, | | | 2018 | Visit | | [address] | | | | | | [address] [place], | | | | | | [place] [address] | | | | | | [phone] | | | | | | | | +--------+---------+ + + + | 04/12/ | Office | Primary Care | Massimo Ramos | | | 2019 | Visit | | MD Fer [address] | | | | | | [place] | | | | | | [address] | | | | | | | | +--------+---------+ + + + | 10/03/ | Office | Neurology | Fabián Carias MD | | | 2019 | Visit | | [address] | | | | | | [place] | | | | | | [address] | | | | | | | [...] | | | care | | | Phlebotomist-C | | | | | | [...] | | | care | | | Phlebotomist-C | | | | | | [...] | | | care | | | Phlebotomist-C | | | | | | [...] | | | care | | | Phlebotomist-C | | | | | | [...]
--- OUTSIDE RECORDS SUMMARY | ~2019-02-17 | XMS | Encounter Summary ---
Demographics + + + | Address | [address] | | | [place] [address] | + + + | Home Phone [...] Providers + +------+ + | Care Airport Screener Name | Role | Phone | + +------+ + | Horacio Silvestre DO | PCP | | + +------+ + Reason for Visit +--------+ + | Reason | Comments | +--------+ + | Nausea | | +--------+ + Encounter Details +--------+ + + + + | Date | Type | Department | Care Team | Description | +--------+ + + + + | 04/13/ | Emergency | [facility] | Arash Caballero, | Acute non-recurrent | | 2018 | | [facility] | SOIL ANALYST [address] | maxillary sinusitis | | | | CENTER [address] | [place] | (Primary Dx) | | | | [place] | [address] | | | | | [address] | | | | | | [phone] | | | +--------+ + + + [...] + + + | Blood Pressure | 176/115 | 04/13/2018 6:08 PM | | | | | PST | | + + + + + | Pulse | 79 | 04/13/2018 6:08 PM | | | | | PST | | + + + + + | Temperature | 36.4 C (97.5 F) | 04/13/2018 5:31 PM | | | | | PST | | + + + + + | Respiratory Rate | 18 | 04/13/2018 6:08 PM | | | | | PST | | + + + + + | Oxygen Saturation | 97% | 04/13/2018 5:31 PM | | | | | PST | | + + + + + | Inhaled Oxygen | - | - | | | Concentration | | | | + + + + + | Weight | 93.4 kg (206 lb) | 04/13/2018 5:31 PM | | | | | PST | | + + + + + | Height | 167.6 cm (5' 6") | 04/13/2018 5:31 PM | | | | | PST | | + + + + + | Body Mass Index | 33.25 | 04/13/2018 5:31 PM | | | | | PST [...] as of this encounter Discharge Instructions Instructions Arash Caballero NP - 04/13/2018Treat symptoms with popk-hyq-gofedgk medicati ons such as Tylenol, oral antihistamines (Claritin, Zyrtec, Leigh) and NSAIDs. Encouraged nasal saline rinses. Continue Flonase. Increase hydration, and get adequate rest. Avoid smoking, or exposure to secondhand smoke. Humidifier okay to use. If symptoms persist over 10 days, fever over 101, or severe sinus pain over 3-4 days, notify primary care provider AttachmentsThe following attachments cannot be sent through Care Everywhere.Sinusitis, Elder teran (Polish)documented in this encounter Medications at Time of [...] | | | | use of insulin ([facility]) | | | | | | [...] | | | | disease, termite exterminator helper | | | | | | [...] | | | | disease, termite exterminator helper | | | | | | [...] [place] | | | | | | [address] | | | | | | [phone] | | | | | | | | +--------+---------+ + + + | 02/26/ | Office | Urology | Lillie Fowler | | | 2018 | Visit | | [address] | | | | | | [address] | | | | | | [place], [place] | | | | | | [address] | | | | | | [phone] | | | | | | | | +--------+---------+ + + + | 03/16/ | Office | Neurology | Theresa, | | | 2018 | Visit | | [address] | | | | | | [address] [place], | | | | | | [place] [address] | | | | | | [phone] | | | | | | | | +--------+---------+ + + + | 04/12/ | Office | Primary Care | Massimo Ramos | | | 2019 | Visit | | MD Fer [address] | | | | | | [place], [place] | | | | | | [address] | | | | | | | | +--------+---------+ + + + | 10/03/ | Office | Neurology | Fabián Carias MD | | | 2019 | Visit | | [address] | | | | | | [place], [place] | | | | | | [address] | | | | | | | | +--------+---------+ + + + + +------+--------+ + + | Name | Type | Priori | Associated Diagnoses | Date/Time | | | | ty | | | + +------+--------+ + + | ED INFORMATION | BRIT | Routin | | 04/13/2018 5:25 PM | | EXCHANGE | | e [...] | | care | | | Account Support Specialist-C | | | | | | [...] | | care | | | Account Support Specialist-C | | | | | | [...] | | care | | | Account Support Specialist-C | | | | | | [...] | | care | | | Account Support Specialist-C | | | | | | | linical | + +--------+ +---+-----+ + + + | Note: Pt will | | check CBG's daily x1 | | Pt will take Lantis as | | prescribed | + + documented as of this encounter Visit Diagnoses + + | Diagnosis | + + | Acute non-recurrent maxillary sinusitis - Primary | + + documented in this encounter
--- OUTSIDE RECORDS SUMMARY | ~2019-02-17 | XMS | Encounter Summary ---
Demographics + + + | Address | [address] | | | [place] [address] | + + + | Home Phone [...] Team Providers + +------+ + | Care Systems Support Officer Name | Role | Phone | [...] [place], [place] | | | | | [address] | [address] | | | | | [phone] | [phone] | | | | | | | [...] The patient was planned for discharge to [facility] due to the fact that he lives in [facility] nd was still requiring antibiotics as well as some physical therapy, dressing changes, etc. On today at the time of discharge he is tolerating he repacking of the wound well. The J-P drain is removed due to minimal drainage. Plan is to have him be discharged to [facility]. Medication list and reconciliation is done prior to discharge. He is going to be given CIPROFLOXACIN 500 mg b.i.d., also is going to be kept o n his usual medications and is given OXYCODONE/ACETAMINOPHEN for pain. DISCHARGE DIAGNOSES: 1. Acute diverticulitis with perforation. 2. Postoperative wound infection. 3. History of hypertension. 4. Type 2 diabetes. 5. Hypercholesterolemia. 6. Neuropathy. [facility] Signed and Approved by: LISA TAYLOR MD [...] [place] | | | | | | [address] | | | | | | [phone] | | | | | | | | +--------+---------+ + + + | 02/26/ | Office | Urology | Lillie Fowler | | | 2018 | Visit | | [address] | | | | | | [address] | | | | | | [place], [place] | | | | | | [address] | | | | | | [phone] | | | | | | | | +--------+---------+ + + + | 03/16/ | Office | Neurology | Theresa, | | | 2019 | Visit | | [address] | | | | | | [address] [place], | | | | | | [place] [address] | | | | | | [phone] | | | | | | | | +--------+---------+ + + + | 04/12/ | Office | Primary Care | Massimo Ramos | | | 2019 | Visit | | MD Fer [address] | | | | | | [place] | | | | | | [address] | | | | | | | | +--------+---------+ + + + | 10/03/ | Office | Neurology | Fabián Carias MD | | | 2019 | Visit | | [address] | | | | | | [place] | | | | | | [address] | | | | | | | [...] | | care | | | Car Racer-C | | | | | | | [...] Lifest | Coordinatio | | Yes | Jocleyn, | | management | yle | n of | | | Charline Dos Santos, | | | | complex | | | Case | | | | care | | | Car Racer-C | | | | | | | [...] | | care | | | Car Racer-C | | | | | | | [...] | | care | | | Car Racer-C | | | | | | | [...]
--- OUTSIDE RECORDS SUMMARY | ~2019-02-17 | XMS | Encounter Summary ---
Demographics + + + | Address | [address] | | | [place] [address] | + + + | Home Phone [...] Team Providers + +------+ + | Care Transmission Systems Operator Name | Role | Phone | [...] | | [address] [place], | [address] | | | | | [place] [address] | [phone] | | | | | [phone] | | | +--------+ + + + [...] [place] | | | | | | [address] | | | | | | [phone] | | | | | | | | +--------+---------+ + + + | 02/26/ | Office | Urology | Lillie Fowler | | | 2018 | Visit | | [address] | | | | | | [address] | | | | | | [place], [place] | | | | | | [address] | | | | | | [phone] | | | | | | | | +--------+---------+ + + + | 03/16/ | Office | Neurology | Theresa, | | | 2018 | Visit | | [address] | | | | | | [address] [place], | | | | | | [place] [address] | | | | | | [phone] | | | | | | | | +--------+---------+ + + + | 04/12/ | Office | Primary Care | Massimo Ramos | | | 2019 | Visit | | MD [address] | | | | | | [place] | | | | | | [address] | | | | | | | | +--------+---------+ + + + | 10/03/ | Office | Neurology | Fabián Carias MD | | | 2019 | Visit | | [address] | | | | | | [place] | | | | | | [address] | | | | | | | [...] | | | care | | | Ccna-C | | | | | | | [...] | | | care | | | Ccna-C | | | | | | | [...] | | | care | | | Ccna-C | | | | | | | [...] | | | care | | | Ccna-C | | | | | | | [...]
--- OUTSIDE RECORDS SUMMARY | ~2019-02-17 | XMS | Encounter Summary ---
Demographics + + + | Address | [address] | | | [place] [address] | + + + | Home Phone [...] Providers + +------+ + | Care Driver License Agent Name | Role | Phone | [...] Medication Refill | | 2016 | | [facility] | [address] | | | | | MEDICAL CLIN[facility] [address] | [facility], [place] | | | | | [address] [place], | [address] | | | | | [place] [address] | [phone] | | | | | [phone] | | | +--------+--------+ + + + [...] [place] | | | | | | [address] | | | | | | [phone] | | | | | | | | +--------+---------+ + + + | 02/26/ | Office | Urology | Malcolm Lillie | | | 2018 | Visit | | [address] | | | | | | [address] | | | | | | [place], [place] | | | | | | [address] | | | | | | [phone] | | | | | | | | +--------+---------+ + + + | 03/16/ | Office | Neurology | Theresa, | | | 2018 | Visit | | [address] | | | | | | [address] [place], | | | | | | [place] [address] | | | | | | [phone] | | | | | | | | +--------+---------+ + + + | 04/12/ | Office | Primary Care | Massimo Ramos | | | 2019 | Visit | | MD Fer [address] | | | | | | [place] | | | | | | [address] | | | | | | | | +--------+---------+ + + + | 10/03/ | Office | Neurology | Fabián Carias MD | | | 2019 | Visit | | [address] | | | | | | [place] | | | | | | [address] | | | | | | | [...] | | care | | | Lumber Piler Operator-C | | | | | | [...] | | care | | | Lumber Piler Operator-C | | | | | | [...] | | care | | | Lumber Piler Operator-C | | | | | | [...] | | care | | | Lumber Piler Operator-C | | | | | | | linical | + +--------+ +---+-----+ + + + | Note: Pt will | | check CBG's daily x1 | | Pt will take Lantis as | | prescribed | + + documented as of this encounter Visit Diagnoses Not on filedocumented in this encounter"
--- OUTSIDE RECORDS SUMMARY | ~2019-02-17 | XMS | Encounter Summary ---
Demographics + + + | Address | [address] | | | [place] [address] | + + + | Home Phone [...] Team Providers + +------+ + | Care Paper Ruler Name | Role | Phone | + [...] | 2017 | | [facility] | [address] | | | | | MEDICAL CLIN[facility] [address] | [facility], [place] | | | | | [address] [place], | [address] | | | | | [place] [address] | [phone] | | | | | [phone] | | | +--------+--------+ + + + [...] [place] | | | | | | [address] | | | | | | [phone] | | | | | | | | +--------+---------+ + + + | 02/26/ | Office | Urology | Lillie Fowler | | | 2018 | Visit | | [address] | | | | | | [address] | | | | | | [place], [place] | | | | | | [address] | | | | | | [phone] | | | | | | | | +--------+---------+ + + + | 03/16/ | Office | Neurology | Theresa, | | | 2018 | Visit | | [address]ONDA Mckinney [address] | [address] | [address] [place], | | | | | | [place] [address] | | | | | | [phone] | | | | | | | | +--------+---------+ + + + | 04/12/ | Office | Primary Care | Massimo Ramos | | | 2019 | Visit | | MD Fer [address] | | | | | | [address] [place] | | | | | | [address] | | | | | | | | +--------+---------+ + + + | 10/03/ | Office | Neurology | Fabián Carias MD | | | 2019 | Visit | | [address] | | | | | | [place] | | | | | | [phone] | | | | | | | [...] | | | care | | | [facility] | | | | | | | [...] | | | care | | | [facility] | | | | | | | [...] | | | care | | | [facility] | | | | | | | [...] | | | care | | | [facility] | | | | | | | [...]
--- OUTSIDE RECORDS SUMMARY | ~2019-02-17 | XMS | Encounter Summary ---
Demographics + + + | Address | [address] | | | [place] [address] | + + + | Home Phone [...] Team Providers + +------+ + | Care Instructional Design Consultant Name | Role | Phone | [...] | | | | [place], [place] | [address] | | | | | [address] | [phone] | | | | | [phone] | | | +--------+ + + + [...] [place] | | | | | | [address] | | | | | | [phone] | | | | | | | | +--------+---------+ + + + | 02/26/ | Office | Urology | Lillie Fowler | | | 2018 | Visit | | [address] | | | | | | [address] | | | | | | [place] | | | | | | [address] | | | | | | [phone] | | | | | | | | +--------+---------+ + + + | 03/16/ | Office | Neurology | Theresa, | | | 2018 | Visit | | [address] | | | | | | [address] [place], | | | | | | [place] [address] | | | | | | [phone] | | | | | | | | +--------+---------+ + + + | 04/12/ | Office | Primary Care | Massimo Ramos | | | 2019 | Visit | | MD [address] | | | | | | [address] [place] | | | | | | [address] | | | | | | | | +--------+---------+ + + + | 10/03/ | Office | Neurology | Fabián Carias MD | | | 2019 | Visit | | [address] | | | | | | [place] | | | | | | [address] | | | | | | | [...] | | care | | | Felt Cutting 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-C | | | | | [...] | | care | | | Felt Cutting 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-C | | | | | [...] | | care | | | Felt Cutting 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-C | | | | | [...] | | care | | | Felt Cutting 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-C | | | | | [...]
--- OUTSIDE RECORDS SUMMARY | ~2019-02-17 | XMS | Encounter Summary ---
Demographics + + + | Address | [address] | | | [place] [address] | + + + | Home Phone [...] Providers + +------+ + | Care Communications Superintendent Name | Role | Phone | [...] | [address] [place], | [address] | | | | | [place] [address] | | | | | | [phone] | | | +--------+ + + + [...] [place] | | | | | | [address] | | | | | | [phone] | | | | | | | | +--------+---------+ + + + | 02/26/ | Office | Urology | Malcolm Lillie | | | 2018 | Visit | | [address] | | | | | | [address] | | | | | | [place], [place] | | | | | | [address] | | | | | | [phone] | | | | | | | | +--------+---------+ + + + | 03/16/ | Office | Neurology | Theresa, | | | 2018 | Visit | | [address] | | | | | | [address] [place], | | | | | | [place] [address] | | | | | | [phone] | | | | | | | | +--------+---------+ + + + | 04/12/ | Office | Primary Care | Massimo Ramos | | | 2019 | Visit | | [place] [address] | | | | | | [place] | | | | | | [address] | | | | | | | | +--------+---------+ + + + | 10/03/ | Office | Neurology | Fabián Carias MD | | | 2019 | Visit | | [address] | | | | | | [place] | | | | | | [address] | | | | | | | [...] | | care | | | Office Bookkeeper-C | | | | | | | [...] | | care | | | Office Bookkeeper-C | | | | | | | [...] | | care | | | Office Bookkeeper-C | | | | | | | [...] | | care | | | Office Bookkeeper-C | | | | | | | linical | + +--------+ +---+-----+ + + + | Note: Pt will | | check CBG's daily x1 | | Pt will take Lantis as | | prescribed | + + documented as of this encounter Visit Diagnoses Not on filedocumented in this encounter"
--- OUTSIDE RECORDS SUMMARY | ~2019-02-17 | XMS | Encounter Summary ---
Demographics + + + | Address | [address] | | | [place] [address] | + + + | Home Phone [...] Providers + +------+ + | Care Clinical Engineering Director Name | Role | Phone [...] 2019 | | HOSPITAL [facility]UR[facility] | Rylan, VICE PRESIDENT [facility] [address] | | | | | CL[address] | [facility], | | | | | [address] [place], | [place] [address] | | | | | [place] [address] | [phone] | | | | | [phone] | | | +--------+ + + + [...] [place] | | | | | | [address] | | | | | | [phone] | | | | | | | | +--------+---------+ + + + | 02/26/ | Office | Urology | Lillie Fowler | | | 2018 | Visit | | [address] | | | | | | [address] | | | | | | [place], [place] | | | | | | [address] | | | | | | [phone] | | | | | | | | +--------+---------+ + + + | 03/16/ | Office | Neurology | Theresa, | | | 2018 | Visit | | [address] | | | | | | [address] [place], | | | | | | [place] [address] | | | | | | [phone] | | | | | | | | +--------+---------+ + + + | 04/12/ | Office | Primary Care | Massimo Ramos | | | 2019 | Visit | | [address] | | | | | | [place] | | | | | | [address] | | | | | | | | +--------+---------+ + + + | 10/03/ | Office | Neurology | Fabián Carias MD | | | 2019 | Visit | | [address] | | | | | | [place] | | | | | | [address] | | | | | | | [...] | | | care | | | Cleaning Staff Supervisor-C | | | | | | [...] | | | care | | | Cleaning Staff Supervisor-C | | | | | | [...] | | | care | | | Cleaning Staff Supervisor-C | | | | | | [...] | | | care | | | Cleaning Staff Supervisor-C | | | | | | | linical | + +--------+ +---+-----+ + + + | Note: Pt will | | check CBG's daily x1 | | Pt will take Lantis as | | prescribed | + + documented as of this encounter Visit Diagnoses Not on filedocumented in this encounter"
--- OUTSIDE RECORDS SUMMARY | ~2019-02-17 | XMS | Encounter Summary ---
Demographics + + + | Address | [address] | | | [place] [address] | + + + | Home Phone [...] Team Providers + +------+ + | Care Soaking Tank Worker Name | Role | Phone | [...] | 2017 | | [facility] | [address] | | | | | MEDICAL [facility] [address] | [facility], [place] | | | | | [address] [place], | [address] | | | | | [place] [address] | [phone] | | | | | [phone] | | | +--------+--------+ + + + [...] [place] | | | | | | [address] | | | | | | [phone] | | | | | | | | +--------+---------+ + + + | 02/26/ | Office | Urology | Lillie Fowler | | | 2018 | Visit | | [address] | | | | | | [address] | | | | | | [place], [place] | | | | | | [address] | | | | | | [phone] | | | | | | | | +--------+---------+ + + + | 03/16/ | Office | Neurology | Theresa, | | | 2018 | Visit | | [address] | | | | | | [address] [place], | | | | | | [place] [address] | | | | | | [phone] | | | | | | | | +--------+---------+ + + + | 04/12/ | Office | Primary Care | Massimo Ramos | | | 2019 | Visit | | MD [address] | | | | | | [place] | | | | | | [address] | | | | | | | | +--------+---------+ + + + | 10/03/ | Office | Neurology | Fabián Carias MD | | | 2019 | Visit | | [address] | | | | | | [place] | | | | | | [address] | | | | | | | [...] | | | care | | | School Crossing Guard Supervisor-C | | | | | | [...] | | | care | | | School Crossing Guard Supervisor-C | | | | | | [...] | | | care | | | School Crossing Guard Supervisor-C | | | | | | [...] | | | care | | | School Crossing Guard Supervisor-C | | | | | | [...]
--- OUTSIDE RECORDS SUMMARY | ~2019-02-17 | XMS | Encounter Summary ---
Demographics + + + | Address | [address] | | | [place] [address] | + + + | Home Phone [...] Team Providers + +------+ + | Care Compensator Name | Role | Phone | + [...] | | [address] [place], | [address] | | | | | [place] [address] | [phone] | | | | | [phone] | | | +--------+ + + + [...] [place] | | | | | | [address] | | | | | | [phone] | | | | | | | | +--------+---------+ + + + | 02/26/ | Office | Urology | Lillie Fowler | | | 2018 | Visit | | [address] | | | | | | [address] | | | | | | [place] | | | | | | [address] | | | | | | [phone] | | | | | | | | +--------+---------+ + + + | 03/16/ | Office | Neurology | Theresa, | | | 2018 | Visit | | [address] | | | | | | [address] [place], | | | | | | [place] [address] | | | | | | [phone] | | | | | | | | +--------+---------+ + + + | 04/12/ | Office | Primary Care | Massimo Ramos | | | 2019 | Visit | | [address] | | | | | | [place] | | | | | | [address] | | | | | | | | +--------+---------+ + + + | 10/03/ | Office | Neurology | Fabián Carias MD | | | 2019 | Visit | | [address] | | | | | | [place] | | | | | | [address] | | | | | | | [...] | | | care | | | Guide Tour-C | | | | | | | [...] | | | care | | | Guide Tour-C | | | | | | | [...] | | | care | | | Guide Tour-C | | | | | | | [...] | | | care | | | Guide Tour-C | | | | | | | [...]
--- OUTSIDE RECORDS SUMMARY | ~2019-02-17 | XMS | Encounter Summary ---
Demographics + + + | Address | [address] | | | [place] [address] | + + + | Home Phone [...] Team Providers + +------+ + | Care Child Caregiver Name | Role | Phone | + [...] | | | [facility] | Import Export Manager-Clinical | | | | | [facility] [facility], | | | | | | [place] [address] | | | | | | [phone] | | | +--------+ + + + [...] [place] | | | | | | [address] | | | | | | [phone] | | | | | | | | +--------+---------+ + + + | 02/26/ | Office | Urology | Lillie Fowler | | | 2018 | Visit | | [address] | | | | | | [address] | | | | | | [place], [place] | | | | | | [address] | | | | | | [phone] | | | | | | | | +--------+---------+ + + + | 03/16/ | Office | Neurology | Theresa, | | | 2018 | Visit | | [address] | | | | | | [address] [place], | | | | | | [place] [address] | | | | | | [phone] | | | | | | | | +--------+---------+ + + + | 04/12/ | Office | Primary Care | Massimo Ramos Pedro Luis | | | 2019 | Visit | | [address] | | | | | | [place] | | | | | | [address] | | | | | | | | +--------+---------+ + + + | 10/03/ | Office | Neurology | Fabián Carias MD | | | 2019 | Visit | | [address] | | | | | | [place] | | | | | | [address] | | | | | | | [...] | | | care | | | Import Export Manager-C | | | | | | [...] | | | care | | | Import Export Manager-C | | | | | | [...] | | | care | | | Import Export Manager-C | | | | | | [...] | | | care | | | Import Export Manager-C | | | | | | [...]
--- OUTSIDE RECORDS SUMMARY | ~2019-02-17 | XMS | Encounter Summary ---
Demographics + + + | Address | [address] | | | [place] [address] | + + + | Home Phone [...] Team Providers + +------+ + | Care Weather Stripper Name | Role | Phone | [...] | | [address] [place], | [address] | | | | | [place] [address] | [phone] | | | | | [phone] | | | +--------+ + + + [...] [place] | | | | | | [address] | | | | | | [phone] | | | | | | | | +--------+---------+ + + + | 02/26/ | Office | Urology | Lillie Fowler | | | 2018 | Visit | | [address] | | | | | | [address] | | | | | | [place], [place] | | | | | | [address] | | | | | | [phone] | | | | | | | | +--------+---------+ + + + | 03/16/ | Office | Neurology | Theresa, | | | 2018 | Visit | | [address] | | | | | | [address] [place], | | | | | | [place] [address] | | | | | | [phone] | | | | | | | | +--------+---------+ + + + | 04/12/ | Office | Primary Care | Massimo Ramos | | | 2019 | Visit | | MD [address] | | | | | | [address] [place], [place] | | | | | | [address] | | | | | | | | +--------+---------+ + + + | 10/03/ | Office | Neurology | Fabián Carias MD | | | 2019 | Visit | | [address] | | | | | | [place] | | | | | | [address] | | | | | | | [...] | | care | | | Engineer Chief-C | | | | | | [...] | | care | | | Engineer Chief-C | | | | | | [...] | | care | | | Engineer Chief-C | | | | | | [...] | | care | | | Engineer Chief-C | | | | | | | linical | + +--------+ +---+-----+ + + + | Note: Pt will | | check CBG's daily x1 | | Pt will take Lantis as | | prescribed | + + documented as of this encounter Visit Diagnoses Not on filedocumented in this encounter"
--- OUTSIDE RECORDS SUMMARY | ~2019-02-17 | XMS | Encounter Summary ---
Demographics + + + | Address | [address] | | | [place] [address] | + + + | Home Phone [...] Team Providers + +------+ + | Care Sand Blaster Name | Role | Phone | + [...] 2016 | Encounter | HOSPITAL EMERGENCY | HEATSET WINDER OPERATOR [address] | | | | | CENTER [address] | [place] | | | | | [place] | [address] | | | | | [address] | | | | | | [phone] | | | +--------+ + + + [...] [place] | | | | | | [address] | | | | | | [phone] | | | | | | | | +--------+---------+ + + + | 02/26/ | Office | Urology | Lillie Fowler | | | 2018 | Visit | | [address] | | | | | | [address] | | | | | | [place] | | | | | | [address] | | | | | | [phone] | | | | | | | | +--------+---------+ + + + | 03/16/ | Office | Neurology | Theresa, | | | 2018 | Visit | | [address] | | | | | | [address] [place], | | | | | | [place] [address] | | | | | | [phone] | | | | | | | | +--------+---------+ + + + | 04/12/ | Office | Primary Care | Massimo Ramos | | | 2019 | Visit | | MD [facility] [address] | | | | | | [place] | | | | | | [address] | | | | | | | | +--------+---------+ + + + | 10/03/ | Office | Neurology | Fabián Carias MD | | | 2019 | Visit | | [address] | | | | | | [place] | | | | | | [address] | | | | | | | [...] | | | care | | | Wallpaper Scraper-C | | | | | | | [...] | | | care | | | Wallpaper Scraper-C | | | | | | | [...] | | | care | | | Wallpaper Scraper-C | | | | | | | [...] | | | care | | | Wallpaper Scraper-C | | | | | | | [...]
--- OUTSIDE RECORDS SUMMARY | ~2019-02-17 | XMS | Encounter Summary ---
Demographics + + + | Address | [address] | | | [place] [address] | + + + | Home Phone [...] Providers + +------+ + | Care Human Resources Professional Name | Role | Phone | [...] | | | | | [place] | [address] | | | | | | [address] | Phone: | | | | | | Phone: | [phone] | | | | | | [phone] | Fax: | | | | | | Fax: | [phone] | | | | | | [phone] | | +--------+--------+ + + + + [...] | | | | [place], [place] | [address] | | | | | [address] | [phone] | | | | | [phone] | | | +--------+ + + + [...] [place] | | | | | | [address] | | | | | | [phone] | | | | | | | | +--------+---------+ + + + | 02/26/ | Office | Urology | Lillie Fowler | | | 2018 | Visit | | [address] | | | | | | [address] | | | | | | [place] | | | | | | [address] | | | | | | [phone] | | | | | | | | +--------+---------+ + + + | 03/16/ | Office | Neurology | Theresa, | | | 2018 | Visit | | [address] | | | | | | [address] [place], | | | | | | [place] [address] | | | | | | [phone] | | | | | | | [...] [place] | | | | | | [address] | | | | | | | [...] | | care | | | Waste Water Plant Operator-C | | | | | | [...] | | care | | | Waste Water Plant Operator-C | | | | | | [...] | | care | | | Waste Water Plant Operator-C | | | | | | [...] | | care | | | Waste Water Plant Operator-C | | | | | | [...]
--- OUTSIDE RECORDS SUMMARY | ~2019-02-17 | XMS | Encounter Summary ---
Demographics + + + | Address | [address] | | | [place] [address] | + + + | Home Phone [...] Providers + +------+ + | Care Attending Psychiatrist Name | Role | Phone | + [...] emphysema | | 2018 | Visit | [facility] | DO [address] | ([facility]) | | | | MEDICAL CLIN[facility] [address] | [facility], [place] | | | | | [address] [facility], | [address] | | | | | [place] [address] | [phone] | | | | | [phone] | | | +--------+---------+ + + + [...] Surgeon: Tay Kern MD; Location: [facility] [place] [facility]ul [facility] MOHS SURGERY Left [...] [place] | | | | | | [address] | | | | | | [phone] | | | | | | | | +--------+---------+ + + + | 02/26/ | Office | Urology | Lillie Fowler | | | 2018 | Visit | | [address] | | | | | | [address] | | | | | | [place] | | | | | | [address] | | | | | | [phone] | | | | | | | | +--------+---------+ + + + | 03/16/ | Office | Neurology | Theresa, | | | 2018 | Visit | | [address] | | | | | | [address] [place], | | | | | | [place] [address] | | | | | | [phone] | | | | | | | | +--------+---------+ + + + | 04/12/ | Office | Primary Care | Massimo Ramos | | | 2019 | Visit | | MD Fer [address] | | | | | | [place] | | | | | | [address] | | | | | | | | +--------+---------+ + + + | 10/03/ | Office | Neurology | Fabián Carias MD | | | 2019 | Visit | | [address] | | | | | | [place] | | | | | | [address] | | | | | | | [...] | | | care | | | Legal Consultant-C | | | | | | [...] | | | care | | | Legal Consultant-C | | | | | | [...] | | | care | | | Legal Consultant-C | | | | | | [...] | | | care | | | Legal Consultant-C | | | | | | [...]
--- OUTSIDE RECORDS SUMMARY | ~2019-02-17 | XMS | Encounter Summary ---
Demographics + + + | Address | [address] | | | [place] [address] | + + + | Home Phone [...] + +------+ + | Care Director Of Services Name | Role | Phone | + [...] Medication Refill | | 2017 | | [facility] | [address] | | | | | MEDICAL CLIN[facility] [address] | [facility], [place] | | | | | [address] [place], | [address] | | | | | [place] [address] | [phone] | | | | | [phone] | | | +--------+--------+ + + + [...] [place] | | | | | | [address] | | | | | | [phone] | | | | | | | | +--------+---------+ + + + | 02/26/ | Office | Urology | Lillie Fowler | | | 2018 | Visit | | [address] | | | | | | [address] | | | | | | [place], [place] | | | | | | [address] | | | | | | [phone] | | | | | | | | +--------+---------+ + + + | 03/16/ | Office | Neurology | Theresa, | | | 2018 | Visit | | [address] | | | | | | [address] [place], | | | | | | [place] [address] | | | | | | [phone] | | | | | | | | +--------+---------+ + + + | 04/12/ | Office | Primary Care | Massimo Ramos | | | 2019 | Visit | | MD Fer [address] | | | | | | [place] | | | | | | [address] | | | | | | | | +--------+---------+ + + + | 10/03/ | Office | Neurology | Fabián Carias MD | | | 2019 | Visit | | [address] | | | | | | [place] | | | | | | [address] | | | | | | | [...] | | care | | | Sports Physiotherapist-C | | | | | | | [...] | | care | | | Sports Physiotherapist-C | | | | | | | [...] | | care | | | Sports Physiotherapist-C | | | | | | | [...] | | care | | | Sports Physiotherapist-C | | | | | | | linical | + +--------+ +---+-----+ + + + | Note: Pt will | | check CBG's daily x1 | | Pt will take Lantis as | | prescribed | + + documented as of this encounter Visit Diagnoses Not on filedocumented in this encounter"
--- OUTSIDE RECORDS SUMMARY | ~2019-02-17 | XMS | Encounter Summary ---
Demographics + + + | Address | [address] | | | [place] [address] | + + + | Home Phone [...] Team Providers + +------+ + | Care Orthopaedic Physician Assistant Name | Role | Phone | [...] | | | [facility]ICAL [facility] [address] | Laminator Preforms-Clinical | | | | | [address]TH [facility], | | | | | | [place] [address] | | | | | | [phone] | | | +--------+ + + + [...] [place] | | | | | | [address] | | | | | | [phone] | | | | | | | | +--------+---------+ + + + | 02/26/ | Office | Urology | Lillie Fowler | | | 2018 | Visit | | [address] | | | | | | [address] | | | | | | [place], [place] | | | | | | [address] | | | | | | [phone] | | | | | | | | +--------+---------+ + + + | 03/16/ | Office | Neurology | Theresa, | | | 2018 | Visit | | [address] | | | | | | [address] [place], | | | | | | [place] [address] | | | | | | [phone] | | | | | | | | +--------+---------+ + + + | 04/12/ | Office | Primary Care | Massimo Ramos | | | 2019 | Visit | | MD [address] | | | | | | [place] | | | | | | [address] | | | | | | | | +--------+---------+ + + + | 10/03/ | Office | Neurology | Fabián Carias MD | | | 2019 | Visit | | [address] | | | | | | [place] | | | | | | [address] | | | | | | | [...] | | | care | | | Laminator Preforms-C | | | | | | | [...] | | | care | | | Laminator Preforms-C | | | | | | | [...] | | | care | | | Laminator Preforms-C | | | | | | | [...] | | | care | | | Laminator Preforms-C | | | | | | | linical | + +--------+ +---+-----+ + + + | Note: Pt will | | check CBG's daily x1 | | Pt will take Lantis as | | prescribed | + + documented as of this encounter Visit Diagnoses Not on filedocumented in this encounter"
--- OUTSIDE RECORDS SUMMARY | ~2019-02-17 | XMS | Encounter Summary ---
Demographics + + + | Address | [address] | | | [place] [address] | + + + | Home Phone [...] Providers + +------+ + | Care Transmission Superintendent Name | Role | Phone | [...] | | | 2019 | Support | [facility] | PAINT STRIPPER [address] | | | | | MEDICAL CLIN[facility] [address] | [place] [address] | | | | | [address] [facility], | [phone] | | | | | [place] [address] | | | | | | [phone] | | | +--------+ + + + [...] [place] | | | | | | [address] | | | | | | [phone] | | | | | | | | +--------+---------+ + + + | 02/26/ | Office | Urology | Lillie Fowler | | | 2019 | Visit | | [address] | | | | | | [address] | | | | | | [place] | | | | | | [address] | | | | | | [phone] | | | | | | | | +--------+---------+ + + + | 03/16/ | Office | Neurology | Theresa, | | | 2018 | Visit | | [address] | | | | | | [facility] [address] [place], | | | | | | [place] [address] | | | | | | [phone] | | | | | | | | +--------+---------+ + + + | 04/12/ | Office | Primary Care | Massimo Ramos | | | 2019 | Visit | | MD [address] | | | | | | [place] | | | | | | [address] | | | | | | | | +--------+---------+ + + + | 10/03/ | Office | Neurology | Fabián Carias MD | | | 2019 | Visit | | [address] | | | | | | [place] | | | | | | [address] | | | | | | | [...] | | care | | | Television Newscast Director-C | | | | | | [...] | | care | | | Television Newscast Director-C | | | | | | [...] | | care | | | Television Newscast Director-C | | | | | | [...] | | care | | | Television Newscast Director-C | | | | | | [...]
--- OUTSIDE RECORDS SUMMARY | ~2019-02-17 | XMS | Encounter Summary ---
Demographics + + + | Address | [address] | | | [place] [address] | + + + | Home Phone [...] Team Providers + +------+ + | Care Peripheral Vascular Tech Name | Role | Phone | [...] MEDICAL CLIN[facility] [address] | [facility], [place] | | | | | [address] [place], | [address] | | | | | [place] [address] | [phone] | | | | | [phone] | | | +--------+--------+ + + + [...] [place] | | | | | | [address] | | | | | | [phone] | | | | | | | | +--------+---------+ + + + | 02/26/ | Office | Urology | Lillie Fowler | | | 2018 | Visit | | [address] | | | | | | [address] | | | | | | [place] | | | | | | [address] | | | | | | [phone] | | | | | | | | +--------+---------+ + + + | 03/16/ | Office | Neurology | Theresa, | | | 2018 | Visit | | SHON[address] | | | | | | [address] [place], | | | | | | [place] [address] | | | | | | [phone] | | | | | | | | +--------+---------+ + + + | 04/12/ | Office | Primary Care | Massimo Ramos | | | 2019 | Visit | | [address] | | | | | | [place] | | | | | | [address] | | | | | | | | +--------+---------+ + + + | 10/03/ | Office | Neurology | Fabián Carias MD | | | 2019 | Visit | | [address] | | | | | | [place], [place] | | | | | | [address] | | | | | | | [...] | | | care | | | [employer] | | | | | | [...] | | | care | | | [employer] | | | | | | [...] | | | care | | | [employer] | | | | | | [...] | | | care | | | [employer] | | | | | | [...] | | unspecified | + + | nursing home current use of opiate analgesic Encounter for long-term (current) use of | | other medications | + + | Bilateral carpal tunnel syndrome Carpal tunnel syndrome | + + documented in this encounter"
--- OUTSIDE RECORDS SUMMARY | ~2019-02-17 | XMS | Encounter Summary ---
Demographics + + + | Address | [address] | | | [place] [address] | + + + | Home Phone [...] Providers + +------+ + | Care Pharmacy Data Analyst Name | Role | Phone | + +------+ + | Ryan Gutiérrez MD | PCP | | + +------+ + Encounter Details +--------+ + + + + | Date | Type | Department | Care Team | Description | +--------+ + + + + | 08/04/ | Hospital | [facility] | [place], | | | 2016 | Encounter | [facility] | Macario Nichols MD [address] | | | | [address] [place] | [address] | | | | | [place] | [place] [address] | | | | | [address] | [phone] | | | | | [phone] | | | +--------+ + + + [...] [place] | | | | | | [address] | | | | | | [phone] | | | | | | | | +--------+---------+ + + + | 02/26/ | Office | Urology | Lillie Fowler | | | 2018 | Visit | | LILLIE Lopez [address] | | | | | | [address] | | | | | | [place] | | | | | | [address] | | | | | | [phone] | | | | | | | | +--------+---------+ + + + | 03/16/ | Office | Neurology | Theresa, | | | 2018 | Visit | | [address] | | | | | | [address] [place], | | | | | | [place] [address] | | | | | | [phone] | | | | | | | | +--------+---------+ + + + | 04/12/ | Office | Primary Care | Massimo Ramos | | | 2019 | Visit | | MD Fer [address] | | | | | | [address] [place] | | | | | | [address] | | | | | | | | +--------+---------+ + + + | 10/03/ | Office | Neurology | Fabián Carias MD | | | 2019 | Visit | | [address] | | | | | | [place] | | | | | | [address] | | | | | | | [...] | | care | | | Pediatric Surgeon-C | | | | | | | [...] | | care | | | Pediatric Surgeon-C | | | | | | | [...] | | care | | | Pediatric Surgeon-C | | | | | | | [...] | | care | | | Pediatric Surgeon-C | | | | | | | [...] + | POC GLUCOSE, | Routin | 11/11/2015 | | Results for this | | [facility] | e | 11:06 AM | | procedure are in the | | | | PDT | | results section. | + +--------+ + + + | POC GLUCOSE, | Routin | 11/11/2015 | | Results for this | | [facility]POINT | e | 7:33 AM | | procedure are in the | | | | PDT | | results section. | + +--------+ + + + | POC GLUCOSE, | Routin | 11/10/2015 | | Results for this | | [facility]POINT | e | 8:14 PM | | procedure are in the | | | | PDT | | results section. | + +--------+ + + + | POC GLUCOSE, | Routin | 11/10/2015 | | Results for this | | R[facility]POINT | e | 4:16 PM | | procedure are in the | | | | PDT | | results section. | + +--------+ + + + | POC GLUCOSE, | Routin | 11/10/2015 | | Results for this | | [facility]POINT | e | 10:55 AM | | procedure are in the | | | | PDT | | results section. | + +--------+ + + + | POC GLUCOSE, | Routin | 11/10/2015 | | Results for this | | [facility]POINT | e | 7:03 AM | | procedure are in the | | | | PDT | | results section. | + +--------+ + + + | BASIC METABOLIC | Routin | 11/10/2015 | | Results for this | | PANEL | e | 5:00 AM | | procedure are in the | | | | PDT | | results section. | + +--------+ + + + | POC GLUCOSE, | Routin | 11/09/2015 | | Results for this | | R[facility]IDPOINT | e | 8:46 PM | | procedure are in the | | | | PDT | | results section. | + +--------+ + + + | POC GLUCOSE, | Routin | 11/09/2015 | | Results for this | | RAPIDPOINT | e | 4:34 PM | | procedure are in the | | | | PDT | | results section. | + +--------+ + + + | POC GLUCOSE, | Routin | 11/09/2015 | | Results for this | | [facility]IDPOINT | e | 4:03 PM | | procedure are in the | | | | PDT | | results section. | + +--------+ + + + | CBC W/AUTO | Routin | 11/09/2015 | | Results for this | | DIFFERENTIAL | e | 5:00 AM | | procedure are in the | | | | PDT | | results section. | + +--------+ + + + | HEMOGLOBIN A1C | Routin | 11/09/2015 | | Results for this | | | e | 5:00 AM | | procedure are in the | | | | PDT | | results section. | + +--------+ + + + | BASIC METABOLIC | Routin | 11/09/2015 | | Results for this | | PANEL | e | 5:00 AM | | procedure are in the | | | | PDT | | results section. | + +--------+ + + + documented in this encounter Results POC Glucose, [facility] (11/11/2015 11:06 AM PDT) + +-------+ + + + | Component | Value | Ref Range | Performed | Pathologist | | | | | At | Signature | + +-------+ + + + | Glucose, | 219 | 70 - 110 mg/dL | EXTERNAL [...] + +---------+ + + POC Glucose, [facility] (11/11/2015 7:33 AM PDT) + +-------+ + + + | Component | Value | Ref Range | Performed | Pathologist | | | | | At | Signature | + +-------+ + + + | Glucose, | 213 | 70 - 110 mg/dL | EXTERNAL [...] + +---------+ + + POC Glucose, [facility] (11/10/2015 8:14 PM PDT) + +-------+ + + + | Component | Value | Ref Range | Performed | Pathologist | | | | | At | Signature | + +-------+ + + + | Glucose, | 232 | 70 - 110 mg/dL | EXTERNAL [...] + +---------+ + + POC Glucose, [facility] (11/10/2015 4:16 PM PDT) + +-------+ + + + | Component | Value | Ref Range | Performed | Pathologist | | | | | At | Signature | + +-------+ + + + | Glucose, | 271 | 70 - 110 mg/dL | EXTERNAL [...] + +---------+ + + POC Glucose, [facility] (11/10/2015 10:55 AM PDT) + +-------+ + + + | Component | Value | Ref Range | Performed | Pathologist | | | | | At | Signature | + +-------+ + + + | Glucose, | 237 | 70 - 110 mg/dL | EXTERNAL [...] + +---------+ + + POC Glucose, [facility] (11/10/2015 7:03 AM PDT) + +-------+ + + + | Component | Value | Ref Range | Performed | Pathologist | | | | | At | Signature | + +-------+ + + + | Glucose, | 294 | 70 - 110 mg/dL | EXTERNAL [...] + +---------+ + + Basic Metabolic Panel (11/10/2015 5:00 AM PDT) + +-------+ + + [...] +-------+ + + + | Glucose | 195 | 70 - 110 mg/dL | EXTERNAL | | | | | | LAB | | + +-------+ + + + | BUN, Bld | 15 | 5 - 26 mg/dL | EXTERNAL | | | | | | LAB | | + +-------+ + + + | Creatinine | 0.85 | 0.70 - 1.40 | EXTERNAL | | | | | mg/dL | LAB | | + +-------+ + + + | BUN/Creatin | 17.6 | 7.0 - 24.0 | EXTERNAL | [...] + +---------+ + + POC Glucose, [facility] (11/09/2015 8:46 PM PDT) + +-------+ + + + | Component | Value | Ref Range | Performed | Pathologist | | | | | At | Signature | + +-------+ + + + | Glucose, | 268 | 70 - 110 mg/dL | EXTERNAL [...] + +---------+ + + POC Glucose, [facility] (11/09/2015 4:34 PM PDT) + +-------+ + + + | Component | Value | Ref Range | Performed | Pathologist | | | | | At | Signature | + +-------+ + + + | Glucose, | 362 | 70 - 110 mg/dL | EXTERNAL [...] + +---------+ + + POC Glucose, [facility] (11/09/2015 4:03 PM PDT) + +-------+ + + + | Component | Value | Ref Range | Performed | Pathologist | | | | | At | Signature | + +-------+ + + + | Glucose, | 364 | 70 - 110 mg/dL | EXTERNAL [...] | + +---------+ + + Hemoglobin A1C (11/09/2015 5:00 AM PDT) + +-------+ + + + | Component | Value | Ref Range | Performed | Pathologist | | | | | At | Signature | + +-------+ + + + | Hemoglobin | 11.2 | <=5.6 % | EXTERNAL | | [...] + +---------+ + + Basic Metabolic Panel (11/09/2015 5:00 AM PDT) + +-------+ + + [...] +-------+ + + + | Cl | 106 | 95 - 108 mmol/L | EXTERNAL | | | | | | LAB | | + +-------+ + + + | CO2 | 21 | 23 - 34 mmol/L | EXTERNAL | | | | | | LAB | | + +-------+ + + + | Anion Gap | 8 | 7 - 16 | EXTERNAL | | | | | | LAB | | + +-------+ + + + | Calcium | 8.2 | 8.3 - 10.0 | EXTERNAL | | | | | mg/dL | LAB | | + +-------+ + + + | Glucose | 283 | 70 - 110 mg/dL | EXTERNAL | | | | | | LAB | | + +-------+ + + + | BUN, Bld | 24 | 5 - 26 mg/dL | EXTERNAL | | | | | | LAB | | + +-------+ + + + | Creatinine | 1.01 | 0.70 - 1.40 | EXTERNAL | | | | | mg/dL | LAB | | + +-------+ + + + | BUN/Creatin | 23.8 | 7.0 - 24.0 | EXTERNAL | [...] + + CBC w/ Auto Differential (11/09/2015 5:00 AM PDT) + +-------+ + + + | Component | Value | Ref Range | Performed | Pathologist | | | | | At | Signature | + +-------+ + + + | WBC | 6.9 | 4.6 - 10.5 | EXTERNAL | | | | | 1000/mm3 | LAB | | + +-------+ + + + | RBC | 4.08 | 4.36 - 5.83 | EXTERNAL | | | | | mil/mm3 | LAB | | + +-------+ + + + | HGB, | 12.4 | 13.1 - 17.4 | EXTERNAL | | | External | | g/dL | LAB | | + +-------+ + + + | HCT, | 36.7 | 39.0 - 51.9 % | EXTERNAL | | | External | | | LAB | | + +-------+ + + + | MCV | 90 | 82 - 96 fl | EXTERNAL | | | | | | LAB | | + +-------+ + + + | MCH | 30.4 | 27.7 - 32.3 pg | EXTERNAL | | | | | | LAB | | + +-------+ + + + | MCHC | 33.8 | 32.0 - 36.9 | EXTERNAL | | | | | g/dL | LAB | | + +-------+ + + + | RDW-CV | 13.9 | <=17.0 % | EXTERNAL | | | | | | LAB | | + +-------+ + + + | RDW-SD | 44.9 | 34.0 - 57.0 fL | EXTERNAL | | | | | | LAB | | + +-------+ + + + | Platelet | 179 | 150 - 450 | EXTERNAL | | | Count | | 1000/mm3 | LAB | | | Plasma | | | | | + +-------+ + + + | MPV | 11.3 | 9.4 - 12.4 FL | EXTERNAL | | | | | | LAB | | + +-------+ + + + | % Segmented | 53.1 | 42.0 - 76.0 % | EXTERNAL | | | | | | LAB | | | Neutrophils | | | | | + +-------+ + + + | % | 29.7 | 20.0 - 40.0 % | EXTERNAL | | | Lymphocytes | | | LAB | | + +-------+ + + + | % Monocytes | 14 | 3.0 - 13.0 % | EXTERNAL | | | | | | LAB | | + +-------+ + + + | % | 2.9 | 0.0 - 7.0 % | EXTERNAL | | | Eosinophils | | | LAB | | + +-------+ + + + | % Basophils | 0.3 | 0.0 - 2.0 % | EXTERNAL | | | | | | LAB | | + +-------+ + + + | Absolute | 3.67 | 2.80 - 7.70 | EXTERNAL | | | Neutrophils | | 1000/mm3 | LAB | | + +-------+ + + + | Absolute | 2.05 | 1.20 - 3.30 | EXTERNAL | | | Lymphocytes | | 1000/mm3 | LAB | | + +-------+ + + + | Absolute | 0.97 | 0.00 - 0.80 | EXTERNAL | | | Monocytes | | 1000/mm3 | LAB | | + +-------+ + + + | Absolute | 0.2 | 0.00 - 0.70 | EXTERNAL | [...]
--- OUTSIDE RECORDS SUMMARY | ~2019-02-17 | XMS | Encounter Summary ---
Demographics + + + | Address | [address] | | | [place] [address] | + + + | Home Phone [...] Team Providers + +------+ + | Care Calker Name | Role | Phone | + [...] | | | [facility] [address] | [facility], [place] | | | | | [address] [place], | [address] | | | | | [place] [address] | [phone] | | | | | [phone] | | | +--------+--------+ + + + [...] [place] | | | | | | [address] | | | | | | [phone] | | | | | | | | +--------+---------+ + + + | 02/26/ | Office | Urology | Lillie Fowler | | | 2018 | Visit | | [address]IE Lopez [address] | | | | | | [address] | | | | | | [place], [place] | | | | | | [address] | | | | | | [phone] | | | | | | | | +--------+---------+ + + + | 03/16/ | Office | Neurology | Theresa, | | | 2018 | Visit | | [address] | | | | | | [address] [place], | | | | | | [place] [address] | | | | | | [phone] | | | | | | | | +--------+---------+ + + + | 04/12/ | Office | Primary Care | Massimo Ramos | | | 2019 | Visit | | MD Fer [address] | | | | | | [place] | | | | | | [address] | | | | | | | | +--------+---------+ + + + | 10/03/ | Office | Neurology | Fabián Carias MD | | | 2019 | Visit | | [address] | | | | | | [place] | | | | | | [address] [...] | care | | | Real Estate Executive Assistant-C | | | | | | [...] | care | | | Real Estate Executive Assistant-C | | | | | | [...] | care | | | Real Estate Executive Assistant-C | | | | | | [...] | care | | | Real Estate Executive Assistant-C | | | | | | | linical | + +--------+ +---+-----+ + + + | Note: Pt will | | check CBG's daily x1 | | Pt will take Lantis as | | prescribed | + + documented as of this encounter Visit Diagnoses Not on filedocumented in this encounter"
--- OUTSIDE RECORDS SUMMARY | ~2019-02-17 | XMS | Encounter Summary ---
Demographics + + + | Address | [address] | | | [place] [address] | + + + | Home Phone [...] Team Providers + +------+ + | Care Hose Inspector And Patcher Name | Role | Phone | + [...] [place] | | | | | | [address] | [place], [place] | | | | | | Phone: | [address] | | | | | | [phone] | Phone: | | | | | | Fax: | [phone] | | | | | | [phone] | Fax: | | | | | | | [phone] | +--------+ + + + + + [...] | | | DR [address] [place], | [facility], [place] | | | | | [place] [address] | [address] | | | | | [phone] | [phone] | | | | | | | [...] CARDIOVASCULAR Denies ever having had a previous NH, DVT, or PE. PULMONARY Denies the use of a CPAP or supplemental oxygen. 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 INTEGUMENTARY Denies tattoos. HEMATOLOGIC Denies bleeding [...] otherwise stable for follow up wi th nd when necessary. Electronically signed by: Scott De [...] [place] | | | | | | [address] | | | | | | [phone] | | | | | | | | +--------+---------+ + + + | 02/26/ | Office | Urology | Lillie Fowler | | | 2018 | Visit | | [address] | | | | | | [address] | | | | | | [place], [place] | | | | | | [address] | | | | | | [phone] | | | | | | | | +--------+---------+ + + + | 03/16/ | Office | Neurology | Theresa, | | | 2018 | Visit | | [address] | | | | | | [address] [place], | | | | | | [place] [address] | | | | | | [phone] | | | | | | | | +--------+---------+ + + + | 04/12/ | Office | Primary Care | Massimo Ramos Pedro Luis | | | 2019 | Visit | | MD Fer [address] | | | | | | [place] | | | | | | [address] | | | | | | | | +--------+---------+ + + + | 10/03/ | Office | Neurology | Fabián Carias MD | | | 2019 | Visit | | [address] | | | | | | [place] | | | | | | [address] | | | | | | | [...] | | | care | | | Gear Tooth Lapping 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-C | | | | | [...] | | | care | | | Gear Tooth Lapping 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-C | | | | | [...] | | | care | | | Gear Tooth Lapping 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-C | | | | | [...] | | | care | | | Gear Tooth Lapping 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-C | | | | | [...]
--- OUTSIDE RECORDS SUMMARY | ~2019-02-17 | XMS | Encounter Summary ---
Demographics + + + | Address | [address] | | | [place] [address] | + + + | Home Phone [...] Team Providers + +------+ + | Care Double Needle Operator Name | Role | Phone | [...] [facility] [address] | [facility], [place] | | | | | [address] [place], | [address] | | | | | [place] [address] | [phone] | | | | | [phone] | | | +--------+--------+ + + + [...] [place] | | | | | | [address] | | | | | | [phone] | | | | | | | | +--------+---------+ + + + | 02/26/ | Office | Urology | Lillie Fowler | | | 2018 | Visit | | [address] | | | | | [address] | | | | | | [place] | | | | | | [address] | | | | | | [phone] | | | | | | | | +--------+---------+ + + + | 03/16/ | Office | Neurology | Theresa, | | | 2018 | Visit | | [address] | | | | | | [address] [place], | | | | | | [place] [address] | | | | | | [phone] | | | | | | | | +--------+---------+ + + + | 04/12/ | Office | Primary Care | Massimo Ramos | | | 2019 | Visit | | MD Fer [address] | | | | | | [place] | | | | | | [address] | | | | | | | | +--------+---------+ + + + | 10/03/ | Office | Neurology | Fabián Carias MD | | | 2019 | Visit | | [address] | | | | | | [place], [place] | | | | | | [address] | | | | | | | [...] | | care | | | Deputy Sheriff Lieutenant-C | | | | | | | [...] | | care | | | Deputy Sheriff Lieutenant-C | | | | | | | [...] | | care | | | Deputy Sheriff Lieutenant-C | | | | | | | [...] | | care | | | Deputy Sheriff Lieutenant-C | | | | | | | linical | + +--------+ +---+-----+ + + + | Note: Pt will | | check CBG's daily x1 | | Pt will take Lantis as | | prescribed | + + documented as of this encounter Visit Diagnoses Not on filedocumented in this encounter"
--- OUTSIDE RECORDS SUMMARY | ~2019-02-17 | XMS | Encounter Summary ---
Demographics + + + | Address | [address] | | | [place] [address] | + + + | Home Phone [...] Team Providers + +------+ + | Care Degreasing Solution Reclaimer Name | Role | Phone | + [...] | 2018 | | [facility] | referral ) | | | | [facility] [address] | [facility], [place] | | | | | [address] [place], | [address] | | | | | [place] [address] | [phone] | | | | | [phone] | | | +--------+ + + + [...] [place] | | | | | | [address] | | | | | | [phone] | | | | | | | | +--------+---------+ + + + | 02/26/ | Office | Urology | Lillie Fowler | | | 2018 | Visit | | [address] | | | | | [address] | | | | | | [place], [place] | | | | | | [address] | | | | | | [phone] | | | | | | | | +--------+---------+ + + + | 03/16/ | Office | Neurology | Theresa, | | | 2018 | Visit | | [address] | | | | | | [address] [place], | | | | | | [place] [address] | | | | | | [phone] | | | | | | | | +--------+---------+ + + + | 04/12/ | Office | Primary Care | Massmio Ramos | | | 2019 | Visit | | MD Fer [address] | | | | | | [address] [place], [place] | | | | | | [address] | | | | | | | | +--------+---------+ + + + | 10/03/ | Office | Neurology | Fabián Carias MD | | | 2019 | Visit | | [address] | | | | | | [place], [place] | | | | | | [address] | | | | | | | [...]
--- OUTSIDE RECORDS SUMMARY | ~2019-02-17 | XMS | Encounter Summary ---
Demographics + + + | Address | [address] | | | [place] [address] | + + + | Home Phone [...] Providers + +------+ + | Care Design Technology Teacher Name | Role | Phone [...] | | | | [address] | [address] Phone: | | | | | | [address] | [phone] | | | | | | MARCELO LANGSTON | Fax: | | | | | | [address] | [phone] | | | | | | Phone: | | | | | | | [phone] | | | | | | | Fax: | | | | | | | [phone] | | +--------+--------+ + + + + [...] unspecified back | | | | [place] [address] | | pain laterality | | | | [phone] | | (Primary Dx); Memory | | [...] of this encounter Patient Instructions Patient Instructions Faibán Carias MD - 09/01/2018 8:30 AM PDTFormatting of this note mi ght be different from the original. Patient Instructions [facility] Neurology Clinic Dr. Fabián Carias, Neurologist [...] le, and scrabble, other puzzle games like [employer], [employer]. Play computer/mobile applications such as AdVolume and [employer] GAMES Continue Plavix 75 mg and Atorvastatin 10 mg daily stoke prophylaxis Discussed CBD as a oil or salve, and tincture Use can for ambulation and may require a rolling walker Vit E and Vit B complexes (Centrum plus or silver) Any Questions please call JAMAAL Marroquin or Dr. Carias at [facility] Neurology Clinic General Neck and Back [...] are taking other medicines. You may use bdiu-fiw-drsrqxm medicine to control pain, unless another pain [...] by your healthcare provider Date Last Reviewed: 10/06/201519993476-8503 [employer]. [address] [place] [address], [place] [address]. All righ ts reserved. This information is [...] teens without first discussing it with your [facility] healthcare provider. Ice Ice reduces muscle [...] use ice several times a day. Medicines Gjuc-rtf-nyxgyft pain relieversincludeacetaminophen and anti-inflammatory medicines, wh ich [...] a heating p ad. Date Last Reviewed: 09/05/201719990164-9717 [employer]. [address] [place] [address]. All righ ts reserved. This information is [...] changes. You will work closely with your [facility] provider to find a treatment [...] are needed. Resources For more information, contact: [place] Head[employer] Migraine Association, ahma.membercl10-20 Media.PeopleGoal or 999-233-7290 [place] Chronic Pain Association, theacpa.org or [phone] Date Last Reviewed: 11/05/201619997459-8768 [employer]. [address] [place] [address]. All righ ts reserved. This information is [...] medicines for your pain. You may use ydge-ucs-zbqsajr or prescription medici claudio. You may need [...] your needs. This may include: Stretching and mfvfc-bz-gghdpg exercises Low-impact exercise such as walking, biking, [...] more support and information, contact these groups: [place] Academy [employer] Management, www.aapainmanage.org [place] Academy of Pain Medicine, www.painmed.org [place] Chronic Pain Association, www.theacpa.org National Pain Foundation, www.thenationalpainfoundation.org Date Last Reviewed: 03/07/201719998359-7694 [employer]. [address] [place] [address]. All righ ts reserved. This information is [...] is ke eping you healthy over time.The ehnvpbjrryS9L (or glycated hemoglobin) test can help. Th [...] eAG less than 154 mg/dL. Or, your [facility] provider may want you to aim for an A1C of 6%. That s an eAG of 126 mg/dL. Glucose calculator Visithttp://professional.diabetes.org/diapro/glucose_calc for a chart that helps convert your A1C percentages into eAG numbers. Date Last Reviewed: 09/06/201519990587-9870 [employer]. [address] [place] [address]. All [facility] ts reserved. This information is not [...] acupuncture, massage, and others. Date Last Reviewed: 03/07/201719999329-0956 [employer]. [address] [place] [address]. All [facility] ts reserved. This information is not [...] massage, and other methods. Date Last Reviewed: 04/07/201719998956-1557 [employer]. [address] [place] [address]. All [facility] ts reserved. This information is not [...] AM PDT Patient: Geraldo Mcfadden Medical Record: [id number] Date of Services: 09/01/2018 Referring Doctor: Horacio [...] as acupuncture treatments, massage therapy, relaxation therapy, ztop-kdg-daqnkid creams and patches, CBD, and cortisone shots. Patent lives in [place] and has difficulty in t ravel time. [...] options such as Ativan/l ight therapy and ekrd-yqz-pxodhsn creams and CBD oil or salve. His [...] can also use computer applications such as [employer] on line help him maintain his cognitive skills. I discussed about starting ch olinesterase inhibitors ,however, the patient's is taking so many medications and he prefer s just take multivitamins at this time. The patient and his are hoping once they sell their house in [place] that they can move in town and [...] CEREBELLAR EXAMINATION: There is no dysmetria on vbkddu-oy-rnyz test. MISCELLANEOUS EXAM: Atraumatic, no evidence of [...] st enoses Gait disorder Plan: Patient Instructions [facility] Neurology Clinic Dr. Fabián Carias, Neurologist [...] le, and scrabble, other puzzle games like [employer]ando, [employer]. Play computer/mobile applications such as AdVolume and [employer] GAMES Continue Plavix 75 mg and Atorvastatin [...] call JAMAAL Marroquin or Dr. Carias at [facility] Neurology Clinic General Neck and Back [...] are taking other medicines. You may use nfwe-ipy-cictqku medicine to control pain, unless another pain [...] by your healthcare provider Date Last Reviewed: 10/06/201519997294-4334 [employer]. [address] [place] [address], [place] [address]. All righ ts reserved. This information is [...] teens without first discussing it with your [facility] healthcare provider. Ice Ice reduces muscle [...] use ice several times a day. Medicines Givq-rrs-vrysadz pain relieversincludeacetaminophen and anti-inflammatory medicines, wh ich [...] a heating p ad. Date Last Reviewed: 09/05/201719998002-0304 [employer]. [address] [place] [address], [place] [address]. All righ ts reserved. This information is [...] changes. You will work closely with your [facility] provider to find a treatment [...] are needed. Resources For more information, contact: [place] [employer]raine Association, ahil.membercl10-20 Media.net or [phone] [place] Chronic [employer] Association, theacpa.org or [phone] Date Last Reviewed: 11/05/201619994408-3658 [employer]. [address] [place] [address], [place] [address]. All righ ts reserved. This information is [...] medicines for your pain. You may use pvfp-ffq-pjxebva or prescription medici claudio. You may need [...] your needs. This may include: Stretching and nyava-pd-fngjiz exercises Low-impact exercise such as walking, biking, [...] more support and information, contact these groups: [place] Academy of Pain Management, www.aapainmanage.org [place] Academy of Pain Medicine, www.painmed.org [place] Chronic Pain Association, www.theacpa.org National Pain Foundation, www.thenationalpainfoundation.org Date Last Reviewed: 03/07/201719994683-6215 [employer]. [address] [place] [address]. All righ ts reserved. This information is [...] is ke eping you healthy over time.The cdrzdyvuneP3Q (or glycated hemoglobin) test can help. Th [...] eAG less than 154 mg/dL. Or, your [facility] provider may want you to aim for an A1C of 6%. That s an eAG of 126 mg/dL. Glucose calculator Visithttp://professional.diabetes.org/diapro/glucose_calc for a chart that helps convert your A1C percentages into eAG numbers. Date Last Reviewed: 09/06/201519998511-4403 [employer]. [address] [place] [address]. All righ ts reserved. This information is [...] acupuncture, massage, and others. Date Last Reviewed: 03/07/201719996800-1608 [employer]. [address] [place] [address]. All righ ts reserved. This information is [...] massage, and other methods. Date Last Reviewed: 04/07/201719997687-9123 [employer]. [address] [place] [address]. All [facility] ts reserved. This information is not intended as a substitute for professional medical care. Always follow your healthcare professional's instructions. Fabián Carias MD09/01/20189:13 Electronically signed NOTE: Part of this report was transcribed using voice recognition software. Every effort was made to ensure accuracy. However, inadvertent computerize associate account executive errors may be present documented in this [...] [place] | | | | | | [address] | | | | | | [phone] | | | | | | | | +--------+---------+ + + + | 02/26/ | Office | Urology | Lillie Fowler | | | 2018 | Visit | | LILLIE Lopez [address] | | | | | | [address] | | | | | | [place] | | | | | | [address] | | | | | | [phone] | | | | | | | | +--------+---------+ + + + | 03/16/ | Office | Neurology | Theresa, | | | 2018 | Visit | | [address] | | | | | [address] [place], | | | | | | [place] [address] | | | | | | [phone] | | | | | | | | +--------+---------+ + + + | 04/12/ | Office | Primary Care | Massimo Ramos | | | 2019 | Visit | | MD Fer [address] | | | | | | [address] [place] | | | | | | [address] | | | | | | | | +--------+---------+ + + + | 10/03/ | Office | Neurology | Fabián Carias MD | | | 2019 | Visit | | [address] | | | | | | [place] | | | | | | [address] | | | | | | | [...] | | | care | | | Cuff Presser-C | | | | | | | [...] | | | care | | | Cuff Presser-C | | | | | | | [...] | | | care | | | Cuff Presser-C | | | | | | | [...] | | | care | | | Cuff Presser-C | | | | | | | [...]
--- OUTSIDE RECORDS SUMMARY | ~2019-02-17 | XMS | Encounter Summary ---
Demographics + + + | Address | [address] | | | [place] [address] | + + + | Home Phone [...] Team Providers + +------+ + | Care Chair Springer Name | Role | Phone | + [...] Medication Refill | | 2019 | | [facility] | [address] | | | | | [facility] [address] | [facility] [place], [place] | | | | | [address] [place], | [address] | | | | | [place] [address] | [phone] | | | | | [phone] | | | +--------+--------+ + + + [...] [place] | | | | | | [address] | | | | | | [phone] | | | | | | | | +--------+---------+ + + + | 02/26/ | Office | Urology | Lillie Fowler | | | 2018 | Visit | | LILLIE Lopez [address] | | | | | | [address] | | | | | | [place], [place] | | | | | | [address] | | | | | | [phone] | | | | | | | | +--------+---------+ + + + | 03/16/ | Office | Neurology | Theresa, | | | 2018 | Visit | | [address] | | | | | [address] [place], | | | | | | [place] [address] | | | | | | [phone] | | | | | | | | +--------+---------+ + + + | 04/12/ | Office | Primary Care | Massimo Ramos | | | 2019 | Visit | | MD Fer [address] | | | | | | [place] | | | | | | [address] | | | | | | | | +--------+---------+ + + + | 10/03/ | Office | Neurology | Fabián Carias MD | | | 2019 | Visit | | [address] | | | | | | [place] | | | | | | [address] | | | | | | | [...] | | | care | | | Artificial Snow Making 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-C | | | | [...] | | | care | | | Artificial Snow Making 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-C | | | | [...] | | | care | | | Artificial Snow Making 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-C | | | | [...] | | | care | | | Artificial Snow Making 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-C | | | | [...]
--- OUTSIDE RECORDS SUMMARY | ~2019-02-17 | XMS | Encounter Summary ---
Demographics + + + | Address | [address] | | | [place] [address] | + + + | Home Phone [...] Team Providers + +------+ + | Care Oracle Distribution Consultant Name | Role | Phone | + +------+ + | Ryan Gutiérrez MD | PCP | | + +------+ + Encounter Details +--------+ + + + + | Date | Type | Department | Care Team | Description | +--------+ + + + + | 03/13/ | Hospital | [facility] | Horacio Silvestre, | | | 2016 | Encounter | [facility] | DO [address] | | | | | [address] [place] | [place], [place] | | | | | [place], [place] | [address] | | | | | [address] | [phone] | | | | | [phone] | | | +--------+ + + + [...] [place] | | | | | | [address] | | | | | | [phone] | | | | | | | | +--------+---------+ + + + | 02/26/ | Office | Urology | Lillie Fowler | | | 2018 | Visit | | LILLIE Lopez [address] | | | | | | [address] | | | | | | [place] | | | | | | [address] | | | | | | [phone] | | | | | | | | +--------+---------+ + + + | 03/16/ | Office | Neurology | Theresa, | | | 2018 | Visit | | [address] | | | | [address] [place], | | | | | | [place] [address] | | | | | | [phone] | | | | | | | | +--------+---------+ + + + | 04/12/ | Office | Primary Care | Massimo Ramos | | | 2019 | Visit | | MD Fer [address] | | | | | | [place] | | | | | | [address] | | | | | | | | +--------+---------+ + + + | 10/03/ | Office | Neurology | Fabián Carias MD | | | 2019 | Visit | | [address] | | | | | | [place] | | | | | | [address] | | | | | | | [...] | | | care | | | Psychological Examiner-C | | | | | | [...] | | | care | | | Psychological Examiner-C | | | | | | [...] | | | care | | | Psychological Examiner-C | | | | | | [...] | | | care | | | Psychological Examiner-C | | | | | | [...] + | MICROALBUMIN, URINE, | Routin | 03/13/2016 | | Results for this | | RANDOM | e | 8:28 AM | | procedure are in the | | | | PST | | results section. | + +--------+ + + + | LIPID PANEL | Routin | 03/13/2016 | | Results for this | | | e | 8:28 AM | | procedure are in the | | | | PST | | results section. | + +--------+ + + + | HEMOGLOBIN A1C | Routin | 03/13/2016 | | Results for this | | | e | 8:28 AM | | procedure are in the | | | | PST | | results section. | + +--------+ + + + | COMPREHENSIVE | Routin | 03/13/2016 | | Results for this | | METABOLIC PANEL | e | 8:28 AM | | procedure are in the | | | | PST | | results section. | + +--------+ + + + documented in this encounter Results Microalbumin, Urine, Random (03/13/2016 8:28 AM PST) + +-------+ + + + | Component | Value | Ref Range | Performed | Pathologist | | | | | At | Signature | + +-------+ + + + | Creatinine, | 57.2 | 20.0 - 370.0 | EXTERNAL | | | Urine | | mg/dL | LAB | | + +-------+ + + + | Microalbumi | 42 | <=30.0 mg/L | EXTERNAL | | | n Excretion | | | LAB | | | Rate | | | | | + +-------+ + + + | Microalb | 73.4 | <=17.0 mg/g | EXTERNAL | | [...] + +---------+ + + Comprehensive Metabolic Panel (03/13/2016 8:28 AM PST) + +-------+ + + [...] +-------+ + + + | Alkaline | 87 | 46 - 116 U/L | EXTERNAL | | | Phosphatase | | | LAB | | + +-------+ + + + | ALT, | 38 | 16 - 63 U/L | EXTERNAL | | | External | | | LAB | | + +-------+ + + + | AST, | 31 | <=38 U/L | EXTERNAL | | [...] | + +---------+ + + Lipid Panel (03/13/2016 8:28 AM PST) + +-------+ + + + | Component | Value | Ref Range | Performed | Pathologist | | | | | At | Signature | + +-------+ + + + | Cholesterol | 93 | <=200 mg/dL | EXTERNAL | | | , POC | | | LAB | | + +-------+ + + + | HDL | 30 | >=40 mg/dL | EXTERNAL | | | | | | LAB | | + +-------+ + + + | Triglycerid | 147 | 30 - 200 mg/dL | EXTERNAL | | | es | | | LAB | | + +-------+ + + + | Chol/HDL | 3.1 | <=5.1 RATIO | EXTERNAL | | | Ratio | | | LAB | | + +-------+ + + + | VLDL | 29 | 4 - 40 mg/dL | EXTERNAL | | | | | | LAB | | + +-------+ + + + | LDL-C | 34 | <=130 mg/dL | EXTERNAL | | [...] | + +---------+ + + Hemoglobin A1C (03/13/2016 8:28 AM PST) + +-------+ + + + | Component | Value | Ref Range | Performed | Pathologist | | | | | At | Signature | + +-------+ + + + | Hemoglobin | 6.3 | <=5.6 % | EXTERNAL | | [...]
--- OUTSIDE RECORDS SUMMARY | ~2019-02-17 | XMS | Encounter Summary ---
Demographics + + + | Address | [address] | | | [place] [address] | + + + | Home Phone [...] Team Providers + +------+ + | Care Dog License Officer Supervisor Name | Role | Phone | [...] | | | | [place], [place] | [address] | | | | | [address] | | | | | | [phone] | | | +--------+ + + + [...] | | | | | | disease, long term care social worker | | | | | | | [...] [place] | | | | | | [address] | | | | | | [phone] | | | | | | | | +--------+---------+ + + + | 02/26/ | Office | Urology | Lillie Fowler | | | 2018 | Visit | | LILLIE Lopez [address] | [address] | | [address] | | | | | | [place] | | | | | | [address] | | | | | | [phone] | | | | | | | | +--------+---------+ + + + | 03/16/ | Office | Neurology | Theresa, | | | 2018 | Visit | | [address] | | | | [address] [place], | | | | | | [place] [address] | | | | | | [phone] | | | | | | | | +--------+---------+ + + + | 04/12/ | Office | Primary Care | Massimo Ramos | | | 2019 | Visit | | MD Fer [address] | | | | | | [place] | | | | | | [address] | | | | | | | | +--------+---------+ + + + | 10/03/ | Office | Neurology | Fabián Carias MD | | | 2020 | Visit | | [address] | | | | | | [place] | | | | | | [address] | | | | | | | [...] | | care | | | Insulation Applicator-C | | | | | | | [...] | | care | | | Insulation Applicator-C | | | | | | | [...] | | care | | | Insulation Applicator-C | | | | | | | [...] | | care | | | Insulation Applicator-C | | | | | | | [...]
--- OUTSIDE RECORDS SUMMARY | ~2019-02-17 | XMS | Encounter Summary ---
Demographics + + + | Address | [address] | | | [place] [address] | + + + | Home Phone [...] Providers + +------+ + | Care Master [employer] Name | Role | Phone | + [...] | | | | [address] | Head Librarian-Clinical | | | | | [address] [place] | | | | | | [place] | | | | | | [address] | | | | | | [phone] | | | +--------+ + + + [...] [place] | | | | | | [address] | | | | | | [phone] | | | | | | | | +--------+---------+ + + + | 02/26/ | Office | Urology | Lillie Fowler | | | 2018 | Visit | | LILLIE Lopez [address] | | | | | | [address] | | | | | | [place], [place] | | | | | | [address] | | | | | | [phone] | | | | | | | | +--------+---------+ + + + | 03/16/ | Office | Neurology | Theresa, | | | 2018 | Visit | | [address] | | | | [address] [place], | | | | | | [place] [address] | | | | | | [phone] | | | | | | | | +--------+---------+ + + + | 04/12/ | Office | Primary Care | Massimo Ramos | | | 2019 | Visit | | MD Fer [address] | | | | | | [place] | | | | | | [address] | | | | | | | | +--------+---------+ + + + | 10/03/ | Office | Neurology | Fabián Carias MD | | | 2019 | Visit | | [address] | | | | | | [place] | | | | | | [address] | | | | | | | [...] | | care | | | Head Librarian-C | | | | | | [...] | | care | | | Head Librarian-C | | | | | | [...] | | care | | | Head Librarian-C | | | | | | [...] | | care | | | Head Librarian-C | | | | | | | linical | + +--------+ +---+-----+ + + + | Note: Pt will | | check CBG's daily x1 | | Pt will take Lantis as | | prescribed | + + documented as of this encounter Visit Diagnoses Not on filedocumented in this encounter"
--- OUTSIDE RECORDS SUMMARY | ~2019-02-17 | XMS | Encounter Summary ---
Demographics + + + | Address | [address] | | | [place] [address] | + + + | Home Phone [...] Providers + +------+ + | Care County Attorney Name | Role | Phone | + [...] | [facility] [address] | [facility], [place] | | | | | [address] [place], | [address] | | | | | [place] [address] | [phone] | | | | | [phone] | | | +--------+--------+ + + + [...] [place] | | | | | | [address] | | | | | | [phone] | | | | | | | | +--------+---------+ + + + | 02/26/ | Office | Urology | Lillie Fowler | | | 2018 | Visit | | LILLIE [address] | | | | | | [address] | | | | | | [place] | | | | | | [address] | | | | | | [phone] | | | | | | | | +--------+---------+ + + + | 03/16/ | Office | Neurology | Theresa, | | | 2018 | Visit | | [address] | | | | | | [address] [place], | | | | | | [place] [address] | | | | | | [phone] | | | | | | | | +--------+---------+ + + + | 04/12/ | Office | Primary Care | Massimo Ramos | | | 2019 | Visit | | MD Fer [address] | | | | | | [place] | | | | | | [address] | | | | | | | | +--------+---------+ + + + | 10/03/ | Office | Neurology | Fabián Carias MD | | | 2019 | Visit | | [address] | | | | | | [place], [place] | | | | | | [address] | | | | | | | [...] | | | care | | | Metalizing 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 Automatic-C | | | | | | | [...] | | | care | | | Metalizing 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 Automatic-C | | | | | | | [...] | | | care | | | Metalizing 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 Automatic-C | | | | | | | [...] | | | care | | | Metalizing 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 Automatic-C | | | | | | | [...]
--- OUTSIDE RECORDS SUMMARY | ~2019-02-17 | XMS | Encounter Summary ---
Demographics + + + | Address | [address] | | | [place] [address] | + + + | Home Phone [...] Team Providers + +------+ + | Care Behavior Clinician Name | Role | Phone | + [...] | | [place], [place] | [place] [address] | ([facility]) (Primary Dx); | | 2018 | | [address] | [phone] | Type 2 diabetes | | | | [phone] | | mellitus with | | | | | Macario Coulter | hyperglycemia, with | | | | | MD Magdalena [address] | long-term current | | | | | [address] | use of insulin | | | | | [place] [address] | ([facility]); VIKAS (acute | | | | | [phone] | kidney injury) | | | | | | ([facility]); 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, with | | | | | | long-term current | | | | | | use of insulin ([facility]) | +--------+ + + + + Social [...] nonseasonal allergic rhinitis due to pollen 03/07/2017 [facility] current use of aspirin 03/07/2017 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 [facility] few [facility] and be [...] studies at time of discharge: None Disposition: [facility] Follow-Up Plans: Horacio Silvestre DO [address] [place] [address] In 1 week Electronically signed by: Macario Coulter 07/17/2018 10:48 [facility] Time spent discharging this patient: 40 minutes documented in this encounter Discharge Instructions AttachmentsThe following attachments cannot be sent through Care Everywhere.Dehydration (Ad ult) ([place]yp[place])Blood Sugar, Low; Hypoglycemia ([place]yp[place])Adult, Pneumonia ([place]ypriot)documented i n this encounter Medications at Time [...] male hospitalized for VIKAS (acute kidney injury) ([facility]) Assessment and Plan: Principal Problem: VIKAS (acute [...] signed by: Macario Coulter 07/16/2018 15:42 [facility] Portions of this chart may have been [...] male hospitalized for VIKAS (acute kidney injury) ([facility]) Assessment and Plan: Principal Problem: VIKAS (acute [...] No pronator drift. 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 Please see ROAD CONDUCTOR med list for updated medication list. Electronically [...] [place] | | | | | | [address] | | | | | | [phone] | | | | | | | | +--------+---------+ + + + | 02/26/ | Office | Urology | Lillie Fowler | | | 2018 | Visit | | LILLIE Lopez [address] | | | | | | [address] | | | | | | [place], [place] | | | | | | [address] | | | | | | [phone] | | | | | | | | +--------+---------+ + + + | 03/16/ | Office | Neurology | Theresa, | | | 2018 | Visit | | SH[address]DA [address] | | | | | [address] [place], | | | | | | [place] [address] | | | | | | [phone] | | | | | | | [...] [place] | | | | | | [address] | | | | | | | [...] | | | care | | | Pasta Maker-C | | | | | | [...] | | | care | | | Pasta Maker-C | | | | | | [...] | | | care | | | Pasta Maker-C | | | | | | [...] | | | care | | | Pasta Maker-C | | | | | | [...] J?MRN: | | | | | | [id number] | | | [id number] | | | riteri | | | [...] | | | [place] | | | Administration Physician | | | al | | | [...] | | | [place] | | | Administration Physician | | | al | | | [...] | | | [place] | | | Administration Physician | | | al | | | [...] | | | [id number]/e5 | | | [id number] | | | -[id number] | | | [...] + + | [place] [facility] | [address] | [place] [address] | [phone] | | [facility] | | | [...] + + | [place] [facility] | [address] | [place] [address] | [phone] | | [facility]ITAL [facility] | | | [...] + + | [place] [facility] | [address] | [place] [address] | [phone] | | [facility]ITAL [facility] | | | [...] + + | [place] [facility] | [address] | [place] [address] | [phone] | | [facility] | | | [...] - 1.030 | [place] | | | [place] | | | [facility] | | | [...] + + | [place] [facility] | [address] | [place] [address] | [phone] | | [facility]ITAL [facility] | | | [...] + + | [place] [facility] | [address] | [place] [address] | [phone] | | [facility]ITAL [facility] | | | [...] + + | [place] [facility] | [address] | [place] [address] | [phone] | | [facility]ITAL [facility] | | | [...] + + | [place] [facility] | [address] | [place] [address] | [phone] | | [facility]ITAL [facility] | | | [...] + + | [place] [facility] | [address] | [place] [address] | [phone] | | [facility] | | | [...] | mL/min/1.73m2 | [facility] | | | [facility] | | | [facility] | | | [...] + + | [place] [facility] | [address] | [place] [address] | [phone] | | [facility]ITAL [facility] | | | [...] + + | [place] [facility] | [address] | [place] [address] | [phone] | | [facility]ITAL [facility] | | | [...] + + | [place] [facility] | [address] | [place] [address] | [phone] | | [facility]ITAL [facility] | | | [...] + + | [place] [facility] | [address] | [place] [address] | [phone] | | [facility]ITAL [facility] | | | [...] + + | [place] [facility] | [address] | [place] [address] | [phone] | | [facility]ITAL [facility] | | | [...] + + | [place] [facility] | [address] | [place] [address] | [phone] | | [facility]ITAL [facility] | | | [...] + + | [place] [facility] | [address] | [place] [address] | [phone] | | [facility]ITAL [facility] | | | [...] + + | [place] [facility] | [address] | [place] [address] | [phone] | | [facility] | | | [...] | mL/min/1.73m2 | [facility] | | | [facility] | | | [facility] | | | [...] + + | [place] [facility] | [address] | [place] [address] | [phone] | | [facility] | | | [...] - 1.030 | [place] | | | [place] | | | [facility] | | | [...] + + | [place] [facility] | [address] | [place] [address] | [phone] | | [facility]ITAL [facility] | | | [...] + + | [place] [facility] | [address] | [place] [address] | [phone] | | [facility]ITAL [facility] | | | [...] + + | [place] [facility] | [address] | [place] [address] | [phone] | | [facility]ITAL [facility] | | | [...] + + | [place] [facility] | [address] | [place] [address] | [phone] | | [facility]ITAL [facility] | | | [...] go | | | | | | [email or web address] | | | | | | [email or web address] | | | | | | 6 Test(s) performed at: | | | | | | [facility] | | | | | | ELIAZAR Ibarra | | | | | | Antonieta Clayton M.D., Ph.D. | | | | | | S [employer] [address] | | | | | | [address] [facility] | | | | | | [place] | | | | | | [place] | | | | | | #[id number] | | | | + + + + + + + + | Specimen | + + | Blood | + + + + + + + | Performing | Address | City/State/Zipcode | Phone Number | | Organization | | | | + + + + + | REFERENCE LAB | [address] [facility] | [place], [place] | | | [facility] - | | [address] | | | FRANCINE LOZADA | | [...] + + | [place] [facility] | [address] | [place] [address] | [phone] | | [facility] | | | [...] + + | [place] [facility] | [address] | [place] [address] | [phone] | | [facility]ITAL [facility] | | | [...] + + | [place] [facility] | [address] | [place] [address] | [phone] | | [facility]ITAL [facility] | | | [...] + + | [place] [facility] | [address] | [place] [address] | [phone] | | H[facility]ITAL [facility] | | | [...] + + | [place] [facility] | [address] | [place] [address] | [phone] | | H[facility]ITAL [facility] | | | [...] + + | [place] [facility] | [address] | [place] [address] | [phone] | | [facility]ITAL [facility] | | | [...] + + | [place] [facility] | [address] | [place] [address] | [phone] | | H[facility]ITAL [facility] | | | [...] + + | [place] [facility] | [address] | [place] [address] | [phone] | | [facility]ITAL [facility] | | | [...] + | A study performed by the chief of harbor patrol using this assay showed a 99% | [...] + + | [facility] | [address] | [place] [address] | [phone] | | HOSPITAL [facility] | | | [...] + + | [place] [facility] | [address] | [place] [address] | [phone] | | HOSPITAL [facility] | | | [...] | mL/min/1.73m2 | [facility] | | | [facility] | RATE,ESTIMATED | | HOSPITAL | | | | mL/min/1.53e3Mvot than | | LABORATORY | | | [...] + + | [place] [facility] | [address] | [place] [address] | [phone] | | HOSPITAL [facility] | | | [...] + + | [place] [facility] | [address] | [place] [address] | [phone] | | HOSPITAL [facility] | | | | + + + + + ECG 12 lead (07/14/2018 11:55 AM PDT) + + | Specimen | + + | | + + + + + | Narrative | Performed At | + + + | Heart Rate: 80 | [facility] | | bpmQRS Interval: 94 msQT Interval: 388 msQTC Interval: 448 msP Addison: | TRACEMASTER | | 19 degQRS Addison: -31 degT Wave Addison: 13 degP-R Interval: 176 msec- | | | OTHERWISE NORMAL ECG -SINUS RHYTHMLEFT AXIS DEVIATION | | |P Addison: 19 deg | | |QRS Addison: -31 deg | | |T Wave Addison: 13 deg | | |P-R Interval: 176 [...] | | | | AC, NPO, Daytime 2457-6777 Use | | | | | | | NIGHT DOSE for doses scheduled: | | | | | | | HS, 3AM, Nighttime 7080-6259 | | | | | | | [...]
--- OUTSIDE RECORDS SUMMARY | ~2019-02-17 | XMS | Encounter Summary ---
Demographics + + + | Address | [address] | | | [place] [address] | + + + | Home Phone [...] Providers + +------+ + | Care Nuclear Pharmacist Name | Role | Phone | + [...] [place], [place] | | | | | [place] | [place], [place] | [address] Phone: | | | | | &/SENS 1-2 | [address] | [phone] | | | | | NRV CNDJ | Phone: | Fax: | | | | | PRECONF | [phone] | [phone] | | | | | ELTRODE LIMB | Fax: | | | | | | [place] NEEDLE | [phone] | | | | | | EMG EA | | | | | | | EXTREMITY | | | | | | | W/PARASPINL | | | | | | | AREA LIMITED | | | | | | | [place] EMG, | | | | | | | NEEDLE, TWO | | | | | | | LIM[place] | | | | | | | MOTOR &/SENS | | | | | | | 9-10 NRV | | | | | | | CNDJ PRECONF | | | | | | | ELTRODE | | | | | | | LIM[place] | | | | | | | [...] | syndrome, bilateral | | | | [address] [place], | [place] | (Primary Dx); DDD | | | | [place] [address] | [address] | (degenerative disc | | | | [phone] | | disease), cervical; | | | [...] Guevara MD - 05/31/2013 12:24 PM PST [facility] Musculoskeletal, Sports and Spine, Physiatry [facility] [address] [place] [address] Test Date: 05/31/2013 Patient Name: Geraldo Mcfadden : 1940 Physician: Mor Guevara MD MR #: [id number] Sex: Male Referring Physician: HISTORY: The patient [...] hesitate to call. Mor Guevara MD Fellow, [employer]. documented [...] [place] | | | | | | [address] | | | | | | [phone] | | | | | | | | +--------+---------+ + + + | 02/26/ | Office | Urology | Lillie Fowler | | | 2018 | Visit | | [address]ILLIE Lopez [address] | | | | | | [address] | | | | | | [place], [place] | | | | | | [address] | | | | | | [phone] | | | | | | | | +--------+---------+ + + + | 03/16/ | Office | Neurology | Theresa, | | | 2018 | Visit | | [address] | | | | | [address] [place], | | | | | | [place] [address] | | | | | | [phone] | | | | | | | | +--------+---------+ + + + | 04/12/ | Office | Primary Care | Massimo Ramos | | | 2019 | Visit | | MD Fer [address] | | | | | | [place] | | | | | | [address] | | | | | | | | +--------+---------+ + + + | 10/03/ | Office | Neurology | Fabián Carias MD | | | 2019 | Visit | | [address] | | | | | | [place] | | | | | | [address] | | | | | | | [...] | | care | | | Manager Study-C | | | | | | | [...] | | care | | | Manager Study-C | | | | | | | [...] | | care | | | Manager Study-C | | | | | | | [...] | | care | | | Manager Study-C | | | | | | | [...]
--- OUTSIDE RECORDS SUMMARY | ~2019-02-17 | XMS | Encounter Summary ---
Demographics + + + | Address | [address] | | | [place] [address] | + + + | Home Phone [...] Team Providers + +------+ + | Care Car Stereo Installer Name | Role | Phone | [...] | | | | [place], [place] | [place] [address] | | | | | [address] | [phone] | | | | | [phone] | | | +--------+ + + + [...] [place] | | | | | | [address] | | | | | | [phone] | | | | | | | | +--------+---------+ + + + | 02/26/ | Office | Urology | Lillie Fowler | | | 2018 | Visit | | [address]ILLIE Lopez [address] | | | | | | [address] | | | | | | [place], [place] | | | | | | [address] | | | | | | [phone] | | | | | | | | +--------+---------+ + + + | 03/16/ | Office | Neurology | Theresa, | | | 2018 | Visit | | [address] | | | | | [address] [place], | | | | | | [place] [address] | | | | | | [phone] | | | | | | | | +--------+---------+ + + + | 04/12/ | Office | Primary Care | Massimo Ramos | | | 2019 | Visit | | MD Fer [address] | | | | | | [place] | | | | | | [address] | | | | | | | | +--------+---------+ + + + | 10/03/ | Office | Neurology | Fabián Cairas MD | | | 2019 | Visit | | [address] | | | | | | [place] | | | | | | [address] | | | | | | | [...] | | | care | | | City Recorder-C | | | | | | | [...] | | | care | | | City Recorder-C | | | | | | | [...] | | | care | | | City Recorder-C | | | | | | | [...] | | | care | | | City Recorder-C | | | | | | | linical | + +--------+ +---+-----+ + + + | Note: Pt will | | check CBG's daily x1 | | Pt will take Lantis as | | prescribed | + + documented as of this encounter Visit Diagnoses Not on filedocumented in this encounter"
--- OUTSIDE RECORDS SUMMARY | ~2019-02-17 | XMS | Encounter Summary ---
Demographics + + + | Address | [address] | | | [place] [address] | + + + | Home Phone [...] Team Providers + +------+ + | Care Precision 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 Name | Role | Phone [...] [address] | | | | | [place] [address] | | | | | | [phone] | | | +--------+ + + + [...] [place] | | | | | | [address] | | | | | | [phone] | | | | | | | | +--------+---------+ + + + | 02/26/ | Office | Urology | Lillie Fowler | | | 2018 | Visit | | [address]ILLIE Lopez [address] | | | | | | [address] | | | | | | [place], [place] | | | | | | [address] | | | | | | [phone] | | | | | | | | +--------+---------+ + + + | 03/16/ | Office | Neurology | Theresa, | | | 2018 | Visit | | [address] | | | | [address] [place], | | | | | | [place] [address] | | | | | | [phone] | | | | | | | | +--------+---------+ + + + | 04/12/ | Office | Primary Care | Massimo Ramos Pedro Luis | | | 2019 | Visit | | MD Fer [address] | | | | | | [place] | | | | | | [address] | | | | | | | | +--------+---------+ + + + | 10/03/ | Office | Neurology | Fabián Carias MD | | | 2019 | Visit | | [address] | | | | | | [place] | | | | | | [address] | | | | | | | [...] | | | care | | | Masonry Contractor Administrator-C | | | | | | [...] | | | care | | | Masonry Contractor Administrator-C | | | | | | [...] | | | care | | | Masonry Contractor Administrator-C | | | | | | [...] | | | care | | | Masonry Contractor Administrator-C | | | | | | | linical | + +--------+ +---+-----+ + + + | Note: Pt will | | check CBG's daily x1 | | Pt will take Lantis as | | prescribed | + + documented as of this encounter Visit Diagnoses Not on filedocumented in this encounter"
--- OUTSIDE RECORDS SUMMARY | ~2019-02-17 | XMS | Encounter Summary ---
Demographics + + + | Address | [address] | | | [place] [address] | + + + | Home Phone [...] Providers + +------+ + | Care Personal Financial Representative Name | Role | Phone | [...] + + | 01/15/ | Telephone | [facility] [facility] | Charline Banks, | Care Coordination | | 2019 | | [facility] | Case | | | | | [facility] | Supervisor Sleeping Bag Department-Clinical | | | | | [address] [facility], | | | | | | [place] [address] | | | | | | [phone] | | | +--------+ + + + [...] [place] | | | | | | [address] | | | | | | [phone] | | | | | | | | +--------+---------+ + + + | 02/26/ | Office | Urology | Lillie Fowler | | | 2018 | Visit | | [address]ILLIE Lopez [address] | | | | | | [address] | | | | | | [place], [place] | | | | | | [address] | | | | | | [phone] | | | | | | | | +--------+---------+ + + + | 03/16/ | Office | Neurology | Theresa, | | | 2018 | Visit | | [address] | | | | | [address] [place], | | | | | | [place] [address] | | | | | | [phone] | | | | | | | | +--------+---------+ + + + | 04/12/ | Office | Primary Care | Massimo Ramos Pedro Luis | | | 2019 | Visit | | MD Fer [address] | | | | | | [place] | | | | | | [address] | | | | | | | | +--------+---------+ + + + | 10/03/ | Office | Neurology | Fabián Carias MD | | | 2019 | Visit | | [address] | | | | | | [place] | | | | | | [address] | | | | | | | [...] | | care | | | Supervisor Sleeping Bag Department-C | | | | | | | [...] | | care | | | Supervisor Sleeping Bag Department-C | | | | | | | [...] | | care | | | Supervisor Sleeping Bag Department-C | | | | | | | [...] | | care | | | Supervisor Sleeping Bag Department-C | | | | | | | [...]
--- OUTSIDE RECORDS SUMMARY | ~2019-02-17 | XMS | Encounter Summary ---
Demographics + + + | Address | [address] | | | [place] [address] | + + + | Home Phone [...] Team Providers + +------+ + | Care Bonding 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 Name | Role | Phone [...] acquired | | 2017 | Visit | [facility] | [address] | pneumonia, | | | | [facility] | [place], [place] | unspecified | | | | [address] [place], | [address] | laterality (Primary | | | | [place] [address] | [phone] | Dx) | | | | [phone] | | | +--------+---------+ + + + [...] new to myself. He was admitted to [facility] on for pneumonia. Given IV Levaquin [...] [place] | | | | | | [address] | | | | | | [phone] | | | | | | | | +--------+---------+ + + + | 02/26/ | Office | Urology | Lillie Fowler | | | 2018 | Visit | | LILLIE Lopez [address] | | | | | | [address] | | | | | | [place], [place] | | | | | | [address] | | | | | | [phone] | | | | | | | | +--------+---------+ + + + | 03/16/ | Office | Neurology | Theresa, | | | 2018 | Visit | | [address]DA [address] | | | | | [address] [place], | | | | | | [place] [address] | | | | | | [phone] | | | | | | | [...] [place] | | | | | | [address] | | | | | | | [...] | | | care | | | Tapper Supervisor-C | | | | | | [...] | | | care | | | Tapper Supervisor-C | | | | | | [...] | | | care | | | Tapper Supervisor-C | | | | | | [...] | | | care | | | Tapper Supervisor-C | | | | | | [...]
--- OUTSIDE RECORDS SUMMARY | ~2019-02-17 | XMS | Encounter Summary ---
Demographics + + + | Address | [address] | | | [place] [address] | + + + | Home Phone [...] Team Providers + +------+ + | Care Speech Pathology Supervisor Name | Role | Phone | [...] | [address] [place], [place] | [place] [address] | | | | | [address] | [phone] | | | | | [phone] | | | +--------+ + + + [...] [place] | | | | | | [address] | | | | | | [phone] | | | | | | | | +--------+---------+ + + + | 02/26/ | Office | Urology | Lillie Fowler | | | 2018 | Visit | | LILLIE Lopez [address] | | | | | | [address] | | | | | | [place] | | | | | | [address] | | | | | | [phone] | | | | | | | | +--------+---------+ + + + | 03/16/ | Office | Neurology | Theresa, | | | 2018 | Visit | | [address]DA [address] | | | | | [address] [place], | | | | | | [place] [address] | | | | | | [phone] | | | | | | | | +--------+---------+ + + + | 04/12/ | Office | Primary Care | Massimo Ramos | | | 2019 | Visit | | MD Fer [address] | | | | | | [place] | | | | | | [address] | | | | | | | | +--------+---------+ + + + | 10/03/ | Office | Neurology | Fabián Carias MD | | | 2019 | Visit | | [address] | | | | | | [place] | | | | | | [address] | | | | | | | [...] | | | care | | | District Manager Primary Care Sales-C | | | | | | [...] | | | care | | | District Manager Primary Care Sales-C | | | | | | [...] | | | care | | | District Manager Primary Care Sales-C | | | | | | [...] | | | care | | | District Manager Primary Care Sales-C | | | | | | [...]
--- OUTSIDE RECORDS SUMMARY | ~2019-02-17 | XMS | Encounter Summary ---
Demographics + + + | Address | [address] | | | [place] [address] | + + + | Home Phone [...] Providers + +------+ + | Care Engraver Hand Hard Metals Name | Role | Phone | + [...] | | | [facility] | Leasing Machine Tender-Clinical | | | | | 4TH [facility], | | | | | | [place] [address] | | | | | | [phone] | | | +--------+ + + + [...] [place] | | | | | | [address] | | | | | | [phone] | | | | | | | | +--------+---------+ + + + | 02/26/ | Office | Urology | Lillie Fowler | | | 2018 | Visit | | LILLIE Lopez [address] | | | | | | [address] | | | | | | [place], [place] | | | | | | [address] | | | | | | [phone] | | | | | | | | +--------+---------+ + + + | 03/16/ | Office | Neurology | Theresa, | | | 2018 | Visit | | [address]DA [address] | | | | | [address] [place], | | | | | | [place] [address] | | | | | | [phone] | | | | | | | | +--------+---------+ + + + | 04/12/ | Office | Primary Care | Massimo Ramos | | | 2019 | Visit | | MD Fer [address] | | | | | | [place] | | | | | | [address] | | | | | | | | +--------+---------+ + + + | 10/03/ | Office | Neurology | Fabián Carias MD | | | 2019 | Visit | | [address] | | | | | | [place] | | | | | | [address] | | | | | | | [...] | | | care | | | Leasing Machine Tender-C | | | | | | [...] | | | care | | | Leasing Machine Tender-C | | | | | | [...] | | | care | | | Leasing Machine Tender-C | | | | | | [...] | | | care | | | Leasing Machine Tender-C | | | | | | [...]
--- OUTSIDE RECORDS SUMMARY | ~2019-02-17 | XMS | Encounter Summary ---
Demographics + + + | Address | [address] | | | [place] [address] | + + + | Home Phone [...] Team Providers + +------+ + | Care Fabric And Accessories Estimator Name | Role | Phone | + [...] [place], [place] | | | | | [address] | [address] | | | | | [phone] | [phone] | | | | | | | [...] #30. He is discharged in stable condition. [facility] Signed and Approved by: ROMARIO GALLAGHER [...] [place] | | | | | | [address] | | | | | | [phone] | | | | | | | | +--------+---------+ + + + | 02/26/ | Office | Urology | Lillie Fowler | | | 2018 | Visit | | LILLIE Lopez [address] | | | | | | [address] | | | | | | [place] | | | | | | [address] | | | | | | [phone] | | | | | | | | +--------+---------+ + + + | 03/16/ | Office | Neurology | Theresa, | | | 2019 | Visit | | SHONDA Mckinney [address] [place], | | | | | | [place] [address] | | | | | | [phone] | | | | | | | | +--------+---------+ + + + | 04/12/ | Office | Primary Care | Massimo Ramos | | | 2019 | Visit | | MD Fer [address] | | | | | | [address] [place] | | | | | | [address] | | | | | | | | +--------+---------+ + + + | 10/03/ | Office | Neurology | Fabián Carias MD | | | 2019 | Visit | | [address] | | | | | | [place] | | | | | | [address] | | | | | | | [...] | | | care | | | Tableau Analyst-C | | | | | | [...] | | | care | | | Tableau Analyst-C | | | | | | [...] | | | care | | | Tableau Analyst-C | | | | | | [...] | | | care | | | Tableau Analyst-C | | | | | | [...]
--- OUTSIDE RECORDS SUMMARY | ~2019-02-17 | XMS | Encounter Summary ---
Demographics + + + | Address | [address] | | | [place] [address] | + + + | Home Phone [...] Providers + +------+ + | Care Medical Or Surgical Instrument Maker Name | Role | Phone | [...] | | | | | [address] [place], | | | | | | [place] [address] | | | | | | [phone] | | | +--------+ + + + [...] [place] | | | | | | [address] | | | | | | [phone] | | | | | | | | +--------+---------+ + + + | 02/26/ | Office | Urology | Lillie Fowler | | | 2018 | Visit | | LILLIE Lopez [address] | | | | | | [address] | | | | | | [place], [place] | | | | | | [address] | | | | | | [phone] | | | | | | | | +--------+---------+ + + + | 03/16/ | Office | Neurology | Theresa, | | | 2018 | Visit | | [address] | | | | | | [address] [place], | | | | | | [place] [address] | | | | | | [phone] | | | | | | | | +--------+---------+ + + + | 04/12/ | Office | Primary Care | Massimo Ramos | | | 2019 | Visit | | MD Fer [address] | | | | | | [place] | | | | | | [address] | | | | | | | | +--------+---------+ + + + | 10/03/ | Office | Neurology | Fabián Carias MD | | | 2019 | Visit | | [address] | | | | | | [place] | | | | | | [address] | | | | | | | [...]
--- OUTSIDE RECORDS SUMMARY | ~2019-02-17 | XMS | Encounter Summary ---
Demographics + + + | Address | [address] | | | [place] [address] | + + + | Home Phone [...] Providers + +------+ + | Care Security Inspector Name | Role | Phone | + +------+ + | Horacio Silevstre DO | PCP | | + +------+ [...] | | | [facility] | [facility] | | | | | [facility] [place], | | | | | | [place] [address] | | | | | | [phone] | | | +--------+ + + + [...] [place] | | | | | | [address] | | | | | | [phone] | | | | | | | | +--------+---------+ + + + | 02/26/ | Office | Urology | Lillie Fowler | | | 2018 | Visit | | [address]IE Lopez [address] | | | | | | [address] | | | | | | [place], [place] | | | | | | [address] | | | | | | [phone] | | | | | | | | +--------+---------+ + + + | 03/16/ | Office | Neurology | Theresa, | | | 2018 | Visit | | [address] | | | | | | [address] [place], | | | | | | [place] [address] | | | | | | [phone] | | | | | | | | +--------+---------+ + + + | 04/12/ | Office | Primary Care | Massimo Ramos | | | 2019 | Visit | | MD Fer [address] | | | | | | [place] | | | | | | [address] | | | | | | | | +--------+---------+ + + + | 10/03/ | Office | Neurology | Fabián Carias MD | | | 2019 | Visit | | [address] | | | | | | [place] | | | | | | [address] | | | | | | | [...] | | | care | | | [facility] | | | | | | | [...] | | | care | | | [facility] | | | | | | | [...] | | | care | | | [facility] | | | | | | | [...] | | | care | | | [facility] | | | | | | | [...]
--- OUTSIDE RECORDS SUMMARY | ~2019-02-17 | XMS | Encounter Summary ---
Demographics + + + | Address | [address] | | | [place] [address] | + + + | Home Phone [...] Team Providers + +------+ + | Care Occupational Health Professional Name | Role | Phone | [...] | | | | [place], [place] | [address] | | | | | [address] | [phone] | | | | | [phone] | | | +--------+ + + + [...] [place] | | | | | | [address] | | | | | | [phone] | | | | | | | | +--------+---------+ + + + | 02/26/ | Office | Urology | Lillie Fowler | | | 2018 | Visit | | [address]IE [address] | | | | | | [address] | | | | | | [place] | | | | | | [address] | | | | | | [phone] | | | | | | | | +--------+---------+ + + + | 03/16/ | Office | Neurology | Theresa, | | | 2018 | Visit | | [address] | | | | | | [address] [place], | | | | | | [place] [address] | | | | | | [phone] | | | | | | | | +--------+---------+ + + + | 04/12/ | Office | Primary Care | Massimo Ramos | | | 2019 | Visit | | MD Fer [address] | | | | | | [place] | | | | | | [address] | | | | | | | | +--------+---------+ + + + | 10/03/ | Office | Neurology | Fabián Carias MD | | | 2019 | Visit | | [address] | | | | | | [place] | | | | | | [address] | | | | | | | [...] | | | care | | | Song Writer-C | | | | | | | [...] | | | care | | | Song Writer-C | | | | | | | [...] | | | care | | | Song Writer-C | | | | | | | [...] | | | care | | | Song Writer-C | | | | | | | [...] | | | radiocarpal articulation. JOB #: [id number] Digitally Released by: | | | Drew [...] | | | | | JOB #: [id number] | | Digitally Released by: Drew Lawrence | | | | | | Read By: DREW LAWRENCE MD | | Date: 10/03/2016 12:19 | | | + + documented in this encounter Visit Diagnoses Not on filedocumented in this encounter"
--- OUTSIDE RECORDS SUMMARY | ~2019-02-17 | XMS | Encounter Summary ---
Demographics + + + | Address | [address] | | | [place] [address] | + + + | Home Phone [...] Team Providers + +------+ + | Care Stripper Shovel Operator Name | Role | Phone | [...] | 2017 | | [facility] | [address] [place] | | | | | [facility] | [facility], [place] | | | | | [address] [place], | [address] | | | | | [place] [address] | [phone] | | | | | [phone] | | | +--------+--------+ + + + [...] [place] | | | | | | [address] | | | | | | [phone] | | | | | | | | +--------+---------+ + + + | 02/26/ | Office | Urology | Lillie Fowler | | | 2018 | Visit | | [address] Lopez [address] | | | | | | [address] | | | | | | [place], [place] | | | | | | [address] | | | | | | [phone] | | | | | | | | +--------+---------+ + + + | 03/16/ | Office | Neurology | Theresa, | | | 2018 | Visit | | [address] | | | | | | [address] [place], | | | | | | [place] [address] | | | | | | [phone] | | | | | | | | +--------+---------+ + + + | 04/12/ | Office | Primary Care | Massimo Ramos | | | 2019 | Visit | | MD Fer [address] | | | | | | [place] | | | | | | [address] | | | | | | | | +--------+---------+ + + + | 10/03/ | Office | Neurology | Fabián Carias MD | | | 2019 | Visit | | [address] | | | | | | [place] | | | | | | [address] | | | | | | | [...] | | | care | | | Personnel Adviser-C | | | | | | [...] | | | care | | | Personnel Adviser-C | | | | | | [...] | | | care | | | Personnel Adviser-C | | | | | | [...] | | | care | | | Personnel Adviser-C | | | | | | | linical | + +--------+ +---+-----+ + + + | Note: Pt will | | check CBG's daily x1 | | Pt will take Lantis as | | prescribed | + + documented as of this encounter Visit Diagnoses Not on filedocumented in this encounter"
--- OUTSIDE RECORDS SUMMARY | ~2019-02-17 | XMS | Encounter Summary ---
Demographics + + + | Address | [address] | | | [place] [address] | + + + | Home Phone [...] Team Providers + +------+ + | Care Protective Service Specialist Name | Role | Phone [...] | 2018 | | [facility] | HUMAN RESOURCES CLERK [address] | maxillary sinusitis | | | | CENTER [address] | [place] | (Primary Dx) | | | | DR [place] | [address] | | | | | [address] | | | | | | [phone] | | | +--------+ + + + [...] Arash Caballero NP - 04/13/2018Treat symptoms with ntcx-bfg-mylavlp medicati ons such as Tylenol, oral antihistamines [...] be sent through Care Everywhere.Sinusitis, Elder teran (Lithuanian)documented in this encounter Medications at Time of [...] | | | | use of insulin ([facility]) | | | | | [...] | | | | | | disease, superintendent terminal | | | | | | | [...] | | | | | | disease, superintendent terminal | | | | | | | [...] [place] | | | | | | [address] | | | | | | [phone] | | | | | | | | +--------+---------+ + + + | 02/26/ | Office | Urology | Lillie Fowler | | | 2018 | Visit | | [address] | | | | | | [address] | | | | | | [place], [place] | | | | | | [address] | | | | | | [phone] | | | | | | | | +--------+---------+ + + + | 03/16/ | Office | Neurology | Theresa, | | | 2018 | Visit | | [address] | | | | | | [address] [place], | | | | | | [place] [address] | | | | | | [phone] | | | | | | | | +--------+---------+ + + + | 04/12/ | Office | Primary Care | Massimo Ramos | | | 2019 | Visit | | MD Fer [address] | | | | | | DR [place], [place] | | | | | | [address] | | | | | | | | +--------+---------+ + + + | 10/03/ | Office | Neurology | Fabián Carias MD | | | 2019 | Visit | | [address] | | | | | | [place], [place] | | | | | | [address] | | | | | | | [...] | | | care | | | Engraver Block-C | | | | | | | [...] | | | care | | | Engraver Block-C | | | | | | | [...] | | | care | | | Engraver Block-C | | | | | | | [...] | | | care | | | Engraver Block-C | | | | | | | [...]
--- OUTSIDE RECORDS SUMMARY | ~2019-02-17 | XMS | Encounter Summary ---
Demographics + + + | Address | [address] | | | [place] [address] | + + + | Home Phone [...] Providers + +------+ + | Care Business Office Representative Name | Role | Phone | [...] | DR [place], [place] | [place] [address] | | | | | [address] | [phone] | | | | | [phone] | | | +--------+ + + + [...] [place] | | | | | | [address] | | | | | | [phone] | | | | | | | | +--------+---------+ + + + | 02/26/ | Office | Urology | Lillie Fowler | | | 2018 | Visit | | [address] | | | | | | [address] | | | | | | [place] | | | | | | [address] | | | | | | [phone] | | | | | | | | +--------+---------+ + + + | 03/16/ | Office | Neurology | Theresa, | | | 2018 | Visit | | [address] | | | | | | [address] [place], | | | | | | [place] [address] | | | | | | [phone] | | | | | | | | +--------+---------+ + + + | 04/12/ | Office | Primary Care | Massimo Ramos | | | 2019 | Visit | | MD Fer [address] | | | | | | [place] | | | | | | [address] | | | | | | | | +--------+---------+ + + + | 10/03/ | Office | Neurology | Fabián Carias MD | | | 2019 | Visit | | [address] | | | | | | [place] | | | | | | [address] | | | | | | | [...] | | | care | | | Slot Floor Person-C | | | | | | [...] | | | care | | | Slot Floor Person-C | | | | | | [...] | | | care | | | Slot Floor Person-C | | | | | | [...] | | | care | | | Slot Floor Person-C | | | | | | [...] - 1.030 | EXTERNAL | | | [facility], | | | LAB | | | [...] | | | 4:50 p.m. JOB #: [id number] Read By: MASSIMO Hughes | | Antonieta [...] Dr. Diana at 4:50 p.m. JOB #: [id number] Read By: | | MASSIMO NUNEZ MD [...] | | | | | |JOB #: [id number] | | | |Read By: MASSIMO NUNEZ MD | | | |Released By: MASSIMO NUNEZ MD | |Date: 10/15/2015 11:45 | | | | | + + documented in this encounter Visit Diagnoses Not on filedocumented in this encounter"
--- OUTSIDE RECORDS SUMMARY | ~2019-02-17 | XMS | Encounter Summary ---
Demographics + + + | Address | [address] | | | [place] [address] | + + + | Home Phone [...] Team Providers + +------+ + | Care Fixing Carpenter Name | Role | Phone | + [...] | | | | [place], [place] | [address] | | | | | [address] | [phone] | | | | | [phone] | | | +--------+ + + + [...] [place] | | | | | | [address] | | | | | | [phone] | | | | | | | | +--------+---------+ + + + | 02/26/ | Office | Urology | Lillie Fowler | | | 2018 | Visit | | [address]IE [address] | | | | | | [address] | | | | | | [place] | | | | | | [address] | | | | | | [phone] | | | | | | | | +--------+---------+ + + + | 03/16/ | Office | Neurology | Theresa, | | | 2018 | Visit | | [address] | | | | | | [address] [place], | | | | | | [place] [address] | | | | | | [phone] | | | | | | | | +--------+---------+ + + + | 04/12/ | Office | Primary Care | Massimo Ramos | | | 2019 | Visit | | MD Fer [address] | | | | | | [place] | | | | | | [address] | | | | | | | | +--------+---------+ + + + | 10/03/ | Office | Neurology | Fabián Carias MD | | | 2019 | Visit | | [address] | | | | | | [place] | | | | | | [address] | | | | | | | [...] | | | care | | | Seat Maker-C | | | | | | [...] | | | care | | | Seat Maker-C | | | | | | [...] | | | care | | | Seat Maker-C | | | | | | [...] | | | care | | | Seat Maker-C | | | | | | [...]
--- OUTSIDE RECORDS SUMMARY | ~2019-02-17 | XMS | Encounter Summary ---
Demographics + + + | Address | [address] | | | [place] [address] | + + + | Home Phone [...] Team Providers + +------+ + | Care Gasateria Attendant Name | Role | Phone | [...] [place] | | | | | | [address] | [place], [place] | | | | | | Phone: | [address] | | | | | | [phone] | Phone: | | | | | | Fax: | [phone] | | | | | | [phone] | Fax: | | | | | | | [phone] | +--------+ + + + + + [...] | | | DR [address]ERT [place], | [facility], [place] | | | | | [place] [address] | [address] | | | | | [phone] | [phone] | | | | | | | [...] CARDIOVASCULAR Denies ever having had a previous RI, DVT, or PE. PULMONARY Denies the use of a CPAP or supplemental oxygen. GASTROINTESTINAL He did have hepatitis in the [place]. INTEGUMENTARY Denies tattoos. HEMATOLOGIC Denies bleeding [...] otherwise stable for follow up wi th ut when necessary. Electronically signed by: Scott De [...] [place] | | | | | | [address] | | | | | | [phone] | | | | | | | | +--------+---------+ + + + | 02/26/ | Office | Urology | Lillie Fowler | | | 2018 | Visit | | [address]IE [address] | | | | | | [address] | | | | | | [place], [place] | | | | | | [address] | | | | | | [phone] | | | | | | | | +--------+---------+ + + + | 03/16/ | Office | Neurology | Theresa, | | | 2018 | Visit | | [address] | | | | | | [address] [place], | | | | | | [place] [address] | | | | | | [phone] | | | | | | | | +--------+---------+ + + + | 04/12/ | Office | Primary Care | Massimo Ramos Pedro Luis | | | 2019 | Visit | | MD Fer [address] | | | | | | [place] | | | | | | [address] | | | | | | | | +--------+---------+ + + + | 10/03/ | Office | Neurology | Fabián Carias MD | | | 2019 | Visit | | [address] | | | | | | [place] | | | | | | [address] | | | | | | | [...] | | care | | | Asset Liability Analyst-C | | | | | | [...] | | care | | | Asset Liability Analyst-C | | | | | | [...] | | care | | | Asset Liability Analyst-C | | | | | | [...] | | care | | | Asset Liability Analyst-C | | | | | | [...]
--- OUTSIDE RECORDS SUMMARY | ~2019-02-17 | XMS | Encounter Summary ---
Demographics + + + | Address | [address] | | | [place] [address] | + + + | Home Phone [...] Team Providers + +------+ + | Care Deli Clerk Name | Role | Phone | [...] | | | 2019 | Support | [facility] | MD [address] | | | | | [facility] | [facility] [facility], | | | | | [facility], | [place] [address] | | | | | [place] [address] | [phone] | | | | | [phone] | | | | | | | Lizbeth Reddy NP [address] | | | | | | [address] [facility], | | | | | | [place] [address] | | | | | | [phone] | | | | | | | [...] to come pick them up. Conta cted [place], they will come to nut picker tanks either tomorrow or next week. Only [...] [place] | | | | | | [address] | | | | | | [phone] | | | | | | | | +--------+---------+ + + + | 02/26/ | Office | Urology | Lillie Fowler | | | 2018 | Visit | | [address]IE [address] | | | | | | [address] | | | | | | [place] | | | | | | [address] | | | | | | [phone] | | | | | | | | +--------+---------+ + + + | 03/16/ | Office | Neurology | Theresa, | | | 2018 | Visit | | [address] | | | | | | [address] [place], | | | | | | [place] [address] | | | | | | [phone] | | | | | | | | +--------+---------+ + + + | 04/12/ | Office | Primary Care | Massimo Ramos | | | 2019 | Visit | | MD Fer [address] | | | | | | [place] | | | | | | [address] | | | | | | | | +--------+---------+ + + + | 10/03/ | Office | Neurology | Fabián Carias MD | | | 2019 | Visit | | [address] | | | | | | [place] | | | | | | [address] | | | | | | | [...] | | | care | | | Embroidery 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-C | | | | | [...] | | | care | | | Embroidery 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-C | | | | | [...] | | | care | | | Embroidery 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-C | | | | | [...] | | | care | | | Embroidery 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-C | | | | | [...]
--- OUTSIDE RECORDS SUMMARY | ~2019-02-17 | XMS | Encounter Summary ---
Demographics + + + | Address | [address] | | | [place] [address] | + + + | Home Phone [...] Team Providers + +------+ + | Care Ring Maker Name | Role | Phone | [...] + + | 01/09/ | Hospital | [facility] | Juan Williamson | Generalized weakness | | 2018 - | Encounter | HOSPITAL MED SURG | MD [address] | (Primary Dx); | | | | [address] [place] | [facility] | Community acquired | | 01/11/ | | [place] | [place] [address] | pneumonia, | | 2018 | | [address] | [phone] | unspecified | | | | [phone] | | laterality; Acute | | | | | Esteban Calvillo, | exacerbation of | | | | | [address] | chronic obstructive | | | | | [place] [address] | pulmonary disease | | | | | [phone] | (COPD) ([facility]) | | [...] 03/07/2017 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 He is stable for discharge to [facility]. Of note, the patient's platelet counts were [...] Plans: Horacio Silvestre DO [address] [place] [address] Schedule an appointment as soon as possible for a visit in 1 week F/U pneumonia. Esteban Calvillo, 01/11/2018 Time spent discharging this patient: 25 minutes spent caring for this patient. documented in this encounter Discharge Instructions AttachmentsThe following attachments cannot be sent through Care Everywhere.Adult, Pneumoni a (Amharic)documented in this encounter Medications at Time of [...] | | | | | | disease, [facility] | | | | | | | [...] MEDICAL HOSPITALIST TEAM PROGRESS NOTE Name:Geraldo Durbin [facility] Day # 1 Reason for admission [...] which he reports as >250. Please see PRINTING PRESS OPERATOR APPRENTICE med list for updated medication list. Electronically [...] [place] | | | | | | [address] | | | | | | [phone] | | | | | | | | +--------+---------+ + + + | 02/26/ | Office | Urology | Lillie Fowler | | | 2018 | Visit | | [address] | | | | | | [address] | | | | | | [place], [place] | | | | | | [address] | | | | | | [phone] | | | | | | | | +--------+---------+ + + + | 03/16/ | Office | Neurology | Theresa, | | | 2018 | Visit | | [address] | | | | | | [address] [place], | | | | | | [place] [address] | | | | | | [phone] | | | | | | | | +--------+---------+ + + + | 04/12/ | Office | Primary Care | Massimo Ramos | | | 2019 | Visit | | MD Fer [address] | | | | | | [place] | | | | | | [address] | | | | | | | | +--------+---------+ + + + | 10/03/ | Office | Neurology | Fabián Carias MD | | | 2019 | Visit | | [address] | | | | | | [place] | | | | | | [address] | | | | | | | [...] | | | care | | | Solar Installation Supervisor-C | | | | | | [...] | | | care | | | Solar Installation Supervisor-C | | | | | | [...] | | | care | | | Solar Installation Supervisor-C | | | | | | [...] | | | care | | | Solar Installation Supervisor-C | | | | | | [...] J?MRN: | | | | | | [id number] | | | [id number] | | | ecurit | | | [...] + + | [facility] | [address] | [place] [address] | [phone] | | [facility] | | | [...] | mL/min/1.73m2 | [facility] | | | [...] + + | [place] [facility] | [address] | [place] [address] | [phone] | | HOSPITAL [facility] | | | [...] + + | [place] [facility] | [address] | [place] [address] | [phone] | | HOSPITAL [facility] | | | [...] + + | [place] [facility] | [address] | [place] [address] | [phone] | | HOSPITAL [facility] | | | [...] + + | [facility] [facility] | [address] | [place] [address] | [phone] | | HOSPITAL [facility] | | | [...] + + | [place] [facility] | [address] | [place] [address] | [phone] | | HOSPITAL [facility] | | | [...] + + | [place] [facility] | [address] | [place] [address] | [phone] | | HOSPITAL [facility] | | | [...] + + | [place] [facility] | [address] | [place] [address] | [phone] | | HOSPITAL [facility] | | | [...] + + | [place] [facility] | [address] | [place] [address] | [phone] | | H[facility]PITAL [facility] | | | [...] | mL/min/1.73m2 | [facility] | | | [facility] | | [facility] | | | [...] + + | [facility] [facility] | [address] | [place] [address] | [phone] | | HOSPITAL [facility] | | | [...] - 1.030 | [place] | | | [place] | | | [facility] | | | [...] + + | [place] [facility] | [address] | [place] [address] | [phone] | | HOSPITAL [facility] | | | [...] + + | [place] [facility] | [address] | [place] [address] | [phone] | | HOSPITAL [facility] | | | [...] + + | [facility] | [address] | [place] [address] | [phone] | | HOSPITAL [facility] | | | [...] + + | [facility] [facility] | [address] | [place] [address] | [phone] | | HOSPITAL LAB[facility]ORY | | | [...] + + | [place] [facility] | [address] | [place] [address] | [phone] | | HOSPITAL LAB[facility] | | | [...] + + | [facility] [facility] | [address] | [place] [address] | [phone] | | HOSPITAL [facility] | | | [...] + + | [facility] | [address] | [place] [address] | [phone] | | HOSPITAL [facility] | | | [...] | mL/min/1.73m2 | [facility] | | | [facility] | RATE,ESTIMATED | | [facility]OSPITAL | | | | mL/min/1.75n2Wlif than | | LABORATORY | | | [...] 0.7 | 0.0 - 1.2 mg/dL | [facility] | | | Total | | | [...] + + | [place] [facility] | [address] | [place] [address] | [phone] | | HOSPITAL [facility] | | | [...] + + | [facility] | [address] | [place] [address] | [phone] | | HOSPITAL [facility] | | | [...] + + | [facility] | [address] | [place] [address] | [phone] | | HOSPITAL LAB[facility]ATORY | | | | + + + + + ECG 12 lead (01/09/2018 10:23 AM PDT) + + | Specimen | + + | | + + + + + | Narrative | Performed At | + + + | Heart Rate: 72 | [facility] | | bpmQRS Interval: 84 msQT Interval: 372 msQTC Interval: 408 msP [place]: | TRACEMASTER | | degQRS [place]: -48 degT [place]: 23 degP-R Interval: msec- | | | ABNORMAL ECG -WANDERING ATRIAL PACEMAKERLEFT ANTERIOR FASCICULAR BLOCK | | | [Remains]LATE PRECORDIAL R/S TRANSITION [Now Present]SIGNIFICANT | | | RHYTHM CHANGES[Now Absent] SINUS RHYTHM | | |T [place]: 23 deg | | |P-R Interval: msec [...] | | | | | | Intramuscular, PILOT PLANT OPERATOR, Starting | | | | | | [...] | | | | | NPO, Daytime 8215-3823 Use NIGHT | | | | | | | DOSE for doses scheduled: | | | | | | | HS, 3AM, Nighttime 1486-0650 Only | | | | | | [...]
--- OUTSIDE RECORDS SUMMARY | ~2019-02-17 | XMS | Encounter Summary ---
Demographics + + + | Address | [address] | | | [place] [address] | + + + | Home Phone [...] Providers + +------+ + | Care Paper Feeder Name | Role | Phone | [...] | | | [facility] | [facility], [place] | | | | | [address] [place], | [address] | | | | | [place] [address] | [phone] | | | | | [phone] | | | +--------+--------+ + + + [...] [place] | | | | | | [address] | | | | | | [phone] | | | | | | | | +--------+---------+ + + + | 02/26/ | Office | Urology | Lillie Fowler | | | 2018 | Visit | | LILLIE Lopez [address] | | | | | [address] | | | | | | [place], [place] | | | | | | [address] | | | | | | [phone] | | | | | | | | +--------+---------+ + + + | 03/16/ | Office | Neurology | Theresa, | | | 2018 | Visit | | SHONDA Mck[address]ney [address] | | | | | [address] [place], | | | | | | [place] [address] | | | | | | [phone] | | | | | | | | +--------+---------+ + + + | 04/12/ | Office | Primary Care | Massimo Ramos | | | 2019 | Visit | | MD Fer [address] | | | | | | [address] [place] | | | | | | [address] | | | | | | | | +--------+---------+ + + + | 10/03/ | Office | Neurology | Fabián Carias MD | | | 2019 | Visit | | [address] | | | | | | [place] | | | | | | [address] | | | | | | | [...] | | | care | | | [employer] | | | | | | | [...] | | | care | | | [employer] | | | | | | | [...] | | | care | | | [employer] | | | | | | | [...] | | | care | | | [employer] | | | | | | | [...]
--- OUTSIDE RECORDS SUMMARY | ~2019-02-17 | XMS | Encounter Summary ---
Demographics + + + | Address | [address] | | | [place] [address] | + + + | Home Phone [...] Team Providers + +------+ + | Care Accordion Repairer Name | Role | Phone | [...] | [address] [place], [place] | [place] [address] | | | | | [address] | [phone] | | | | | [phone] | | | +--------+ + + + [...] [place] | | | | | | [address] | | | | | | [phone] | | | | | | | | +--------+---------+ + + + | 02/26/ | Office | Urology | Lillie Fowler | | | 2018 | Visit | | LILLIE Lopez [address] | | | | | | [address] | | | | | | [place] | | | | | | [address] | | | | | | [phone] | | | | | | | | +--------+---------+ + + + | 03/16/ | Office | Neurology | Theresa, | | | 2018 | Visit | | [address] | | | | | | [address] [place], | | | | | | [place] [address] | | | | | | [phone] | | | | | | | | +--------+---------+ + + + | 04/12/ | Office | Primary Care | Masismo Ramos | | | 2019 | Visit | | MD Fer [address] | | | | | | [place] | | | | | | [address] | | | | | | | | +--------+---------+ + + + | 10/03/ | Office | Neurology | Fabián Carias MD | | | 2019 | Visit | | [address] | | | | | | [place] | | | | | | [address] | | | | | | | [...] | | | care | | | Telephone Engineer-C | | | | | | [...] | | | care | | | Telephone Engineer-C | | | | | | [...] | | | care | | | Telephone Engineer-C | | | | | | [...] | | | care | | | Telephone Engineer-C | | | | | | [...] - 1.030 | EXTERNAL | | | [place], | | | LAB | | | [...] | time of the study. Job No.: [id number] Read By: | | | MASSIMO NUNEZ [...] the time of the study. Job No.: [id number] Read By: | | MASSIMO NUNEZ MD [...] | | | | | |Job No.: [id number] | | | |Read By: MASSIMO NUNEZ MD | | | |Released By: MASSIMO NUNEZ MD | |Date: 07/05/2015 16:04 | | | | | + + documented in this encounter Visit Diagnoses Not on filedocumented in this encounter"
--- OUTSIDE RECORDS SUMMARY | ~2019-02-17 | XMS | Encounter Summary ---
Demographics + + + | Address | [address] | | | [place] [address] | + + + | Home Phone [...] Team Providers + +------+ + | Care Civil Engineering Drafter Name | Role | Phone | + [...] | | | | | [address], | [address] | | | | | [place] [address] | [phone] | | | | | [phone] | | | +--------+--------+ + + + [...] [place] | | | | | | [address] | | | | | | [phone] | | | | | | | | +--------+---------+ + + + | 02/26/ | Office | Urology | Lillie Fowler | | | 2018 | Visit | | [address]IE Lopez [address] | | | | | | [address] | | | | | | [place], [place] | | | | | | [address] | | | | | | [phone] | | | | | | | | +--------+---------+ + + + | 03/16/ | Office | Neurology | Theresa, | | | 2018 | Visit | | [address] | | | | | | [address] [place], | | | | | | [place] [address] | | | | | | [phone] | | | | | | | | +--------+---------+ + + + | 04/12/ | Office | Primary Care | Massimo Ramos | | | 2019 | Visit | | MD Fer [address] | | | | | | [place] | | | | | | [address] | | | | | | | | +--------+---------+ + + + | 10/03/ | Office | Neurology | Fabián Carias MD | | | 2019 | Visit | | [address] | | | | | | [place] | | | | | | [address] | | | | | | | [...] | | care | | | Business Account Manager-C | | | | | | [...] | | care | | | Business Account Manager-C | | | | | | [...] | | care | | | Business Account Manager-C | | | | | | [...] | | care | | | Business Account Manager-C | | | | | | [...] | | unspecified | + + | 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
--- OUTSIDE RECORDS SUMMARY | ~2019-02-17 | XMS | Encounter Summary ---
Demographics + + + | Address | [address] | | | [place] [address] | + + + | Home Phone [...] Providers + +------+ + | Care Air Pollution Specialist Name | Role | Phone | [...] diabetes | | 2017 | | [facility] | DO [address] | mellitus with | | | | [facility]ICAL [facility] | [place], [place] | diabetic | | | | [address] [place], | [address] | polyneuropathy, with | | | | [place] [address] | [phone] | long-term current | | | | [phone] | | use of insulin (HCC) | [...] [place] | | | | | | [address] | | | | | | [phone] | | | | | | | | +--------+---------+ + + + | 02/26/ | Office | Urology | Lillie Fowler | | | 2018 | Visit | | [address] | | | | | | [address] | | | | | | [place], [place] | | | | | | [address] | | | | | | [phone] | | | | | | | | +--------+---------+ + + + | 03/16/ | Office | Neurology | Theresa, | | | 2018 | Visit | | [address] | | | | | | [address] [place], | | | | | | [place] [address] | | | | | | [phone] | | | | | | | [...] [place] | | | | | | [address] | | | | | | | [...] | | | care | | | Tearoom Host/Hostess-C | | | | | | | [...] | | | care | | | Tearoom Host/Hostess-C | | | | | | | [...] | | | care | | | Tearoom Host/Hostess-C | | | | | | | [...] | | | care | | | Tearoom Host/Hostess-C | | | | | | | [...] + + | [place] [facility] | [address] | [place] [address] | [phone] | | [facility] | | | | | [facility] | | | | + + + + + documented in this encounter Visit Diagnoses + + | Diagnosis | + + | Type 2 diabetes mellitus with diabetic polyneuropathy, 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) - Primary | + + documented in this encounter"
--- OUTSIDE RECORDS SUMMARY | ~2019-02-17 | XMS | Encounter Summary ---
Demographics + + + | Address | [address] | | | [place] [address] | + + + | Home Phone [...] Team Providers + +------+ + | Care Fast Foods Worker Name | Role | Phone | [...] [place] | | | | | | [address] | [place] | | | | | | Phone: | [address] | | | | | | [phone] | Phone: | | | | | | Fax: | [phone] | | | | | | [phone] | Fax: | | | | | | | [phone] | + + + + + + [...] examination | | 2018 | Visit | [facility] | DNP [address] | (Primary Dx); Skin | | | | [facility] | [place] [address] | lesion of scalp; | | | | [address] [place], | [phone] | Type 2 diabetes | | | | [place] [address] | | mellitus with | | | | [phone] | | diabetic | | | | | | polyneuropathy, with | | | | | | long-term current | | | | | | use of insulin | | | | | | ([facility]); Multilevel | | | | | | [...] melanoma on his L ear historically. - [facility] - AMB Referral 3. Type [...] managed with insulin. His last A1C in [facility] was 6.2. He is currently treated [...] Surgical History: Procedure Laterality Date APPENDECTOMY Azul Azlu [facility] MOHS SURGERY Left L ear melanoma Ventral incisional hernia repair Past Medical History: Diagnosis Date Carpal tunnel syndrome, bilateral 05/31/2013 DDD (degenerative disc disease), cervical 05/22/2013 Diabetes mellitus (HCC) GERD (gastroesophageal reflux disease) Gout Hiatal hernia Hypertension 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, left (HCC) Neck pain, chronic 05/22/2013 Neuropathy ([facility]) Paresthesias - both hands 05/22/2013 Thyroid disease [...] [place] | | | | | | [address] | | | | | | [phone] | | | | | | | | +--------+---------+ + + + | 02/26/ | Office | Urology | Lillie Fowler | | | 2018 | Visit | | [address] | | | | | | [address] | | | | | | [place], [place] | | | | | | [address] | | | | | | [phone] | | | | | | | | +--------+---------+ + + + | 03/16/ | Office | Neurology | Theresa, | | | 2018 | Visit | | [address] | | | | | | [address] [place], | | | | | | [place] [address] | | | | | | [phone] | | | | | | | | +--------+---------+ + + + | 04/12/ | Office | Primary Care | Massimo Ramos | | | 2019 | Visit | | MD Fer [address] | | | | | | [address] [place], [place] | | | | | | [address] | | | | | | | | +--------+---------+ + + + | 10/03/ | Office | Neurology | Fabián Carias MD | | | 2019 | Visit | | [address] | | | | | | [place] | | | | | | [address] | | | | | | | [...] | | care | | | Registered Nurse Renal-C | | | | | | | [...] | | care | | | Registered Nurse Renal-C | | | | | | | [...] | | care | | | Registered Nurse Renal-C | | | | | | | [...] | | care | | | Registered Nurse Renal-C | | | | | | | [...] | mL/min/1.73m2 | [facility] | | | [facility] | RATE,ESTIMATED | | HOSPITAL | | | | mL/min/1.49f1Jsxn than | | REGIONAL | | | [...] + + | [place] [facility] | [address] | [place] [address] | [phone] | | HOSPITAL [facility] | | | [...] + + | [place] [facility] | [address] | [place] [address] | [phone] | | HOSPITAL LAB[facility]ATORY | | | [...] + + | [place] | [address] | [place] [address] | [phone] | | [facility] | | | | | [facility] | | | | + [...]
--- OUTSIDE RECORDS SUMMARY | ~2019-02-17 | XMS | Encounter Summary ---
Demographics + + + | Address | [address] | | | [place] [address] | + + + | Home Phone [...] Providers + +------+ + | Care Rn Behavioral Health Name | Role | Phone | + [...] [facility] | DO [address] | | | | | MEDICAL CL[facility] [address] | [facility], [place] | | | | | [address] [place], | [address] | | | | | [place] [address] | [phone] | | | | | [phone] | | | +--------+--------+ + + + [...] [place] | | | | | | [address] | | | | | | [phone] | | | | | | | | +--------+---------+ + + + | 02/26/ | Office | Urology | Lillie Fowler | | | 2019 | Visit | | [address]IE [address] | | | | | | [address] | | | | | | [place], [place] | | | | | | [address] | | | | | | [phone] | | | | | | | | +--------+---------+ + + + | 03/16/ | Office | Neurology | Theresa, | | | 2018 | Visit | | [address] | | | | | | [address] [place], | | | | | | [place] [address] | | | | | | [phone] | | | | | | | | +--------+---------+ + + + | 04/12/ | Office | Primary Care | Massimo Ramos Pedro Luis | | | 2019 | Visit | | MD Fer [address] | | | | | | [place] | | | | | | [address] | | | | | | | | +--------+---------+ + + + | 10/03/ | Office | Neurology | Fabián Carias MD | | | 2019 | Visit | | [address] | | | | | | [place] | | | | | | [address] | | | | | | | [...] | | | care | | | Center Punch Operator-C | | | | | | [...] | | | care | | | Center Punch Operator-C | | | | | | [...] | | | care | | | Center Punch Operator-C | | | | | | [...] | | | care | | | Center Punch Operator-C | | | | | | | linical | + +--------+ +---+-----+ + + + | Note: Pt will | | check CBG's daily x1 | | Pt will take Lantis as | | prescribed | + + documented as of this encounter Visit Diagnoses Not on filedocumented in this encounter"
--- OUTSIDE RECORDS SUMMARY | ~2019-02-17 | XMS | Encounter Summary ---
Demographics + + + | Address | [address] | | | [place] [address] | + + + | Home Phone [...] Team Providers + +------+ + | Care Flat Sorter Processor Name | Role | Phone | [...] | and tingling | [address], | [place], [place] | | | | | of right | [place] [address] | [address] Phone: | | | | | arm Neck | Phone: | [phone] | | | | | pain | [phone] | Fax: | | | | | Procedures | Fax: | [phone] | | | | | [place] OFFICE | [phone] | | | | | | CONSULTATION [...] + + | 05/05/ | Office | [facility] | Mor Guevara | Neck pain, chronic | | 2013 | Visit | PHYSIATRY [address] | [address], [address] | (Primary Dx); DDD | | | | [address], | [place], [place] | (degenerative disc | | | | [place] [address] | [address] | disease), cervical; | | | | [phone] | | Paresthesias - both | | [...] has no apparent deficits 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 The cranial nerves appear grossly intact. [...] be done closer to his home in [facility] if a physical therapy l ocation [...] [place] | | | | | | [address] | | | | | | [phone] | | | | | | | | +--------+---------+ + + + | 02/26/ | Office | Urology | Lillie Fowler | | | 2018 | Visit | | [address] | | | | | | [address] | | | | | | [place], [place] | | | | | | [address] | | | | | | [phone] | | | | | | | | +--------+---------+ + + + | 03/16/ | Office | Neurology | Theresa, | | | 2018 | Visit | | [address] | | | | | | [address] [place], | | | | | | [place] [address] | | | | | | [phone] | | | | | | | | +--------+---------+ + + + | 04/12/ | Office | Primary Care | Massimo Ramos | | | 2019 | Visit | | MD Fer [address] | | | | | | [place] | | | | | | [address] | | | | | | | | +--------+---------+ + + + | 10/03/ | Office | Neurology | Fabián Carias MD | | | 2019 | Visit | | [address], [place] | | | | | | [place], [place] | | | | | | [address] | | | | | | | [...] | | | care | | | Counselor Supervisor-C | | | | | | [...] | | | care | | | Counselor Supervisor-C | | | | | | [...] | | | care | | | Counselor Supervisor-C | | | | | | | linical | + +--------+ +---+-----+ + + + | Note: Will take | | medications as prescribe | | with managing his | | med minder weekly. | + + + +--------+ +---+-----+ + | Decrease blood sugars | Lifest | Coordinatio | | Yes | Jocleyn, | | | yle | n of | | | Charline Dos Santos, | | | | complex | | | Case | | | | care | | | Counselor Supervisor-C | | | | | | [...]
--- OUTSIDE RECORDS SUMMARY | ~2019-02-17 | XMS | Encounter Summary ---
Demographics + + + | Address | [address] | | | [place] [address] | + + + | Home Phone [...] Team Providers + +------+ + | Care Fire Extinguisher Repairer Inspector Name | Role | Phone | [...] | | [facility] | Supervisor Print Line-Clinical | | | | | [facility], | | | | | | [place] [address] | | | | | | [phone] | | | +--------+ + + + [...] [place] | | | | | | [address] | | | | | | [phone] | | | | | | | | +--------+---------+ + + + | 02/26/ | Office | Urology | Lillie Fowler | | | 2018 | Visit | | [address] | | | | | | [address] | | | | | | [place], [place] | | | | | | [address] | | | | | | [phone] | | | | | | | | +--------+---------+ + + + | 03/16/ | Office | Neurology | Theresa, | | | 2018 | Visit | | [address] | | | | | | [address] [place], | | | | | | [place] [address] | | | | | | [phone] | | | | | | | | +--------+---------+ + + + | 04/12/ | Office | Primary Care | Massimo Ramos | | | 2019 | Visit | | MD Fer [address] | | | | | | [place] | | | | | | [address] | | | | | | | | +--------+---------+ + + + | 10/03/ | Office | Neurology | Fabián Carias MD | | | 2019 | Visit | | [address] | | | | | | [place] | | | | | | [address] | | | | | | | [...] | | care | | | Supervisor Print Line-C | | | | | | | [...] | | care | | | Supervisor Print Line-C | | | | | | | [...] | | care | | | Supervisor Print Line-C | | | | | | | [...] | | care | | | Supervisor Print Line-C | | | | | | | [...]
--- OUTSIDE RECORDS SUMMARY | ~2019-02-17 | XMS | Encounter Summary ---
Demographics + + + | Address | [address] | | | [place] [address] | + + + | Home Phone [...] Author | [facility] | | | and [place] | + [...] Providers + +------+ + | Care Group Chief Operator Name | Role | Phone | [...] | | | | | [address] [place], | [address] | | | | | [place] [address] | [phone] | | | | | [phone] | | | +--------+ + + + [...] [place] | | | | | | [address] | | | | | | [phone] | | | | | | | | +--------+---------+ + + + | 02/26/ | Office | Urology | Lillie Fowler | | | 2018 | Visit | | [address] | | | | | | [address] | | | | | | [place] | | | | | | [address] | | | | | | [phone] | | | | | | | | +--------+---------+ + + + | 03/16/ | Office | Neurology | Theresa, | | | 2018 | Visit | | [address] | | | | | | [address] [place], | | | | | | [place] [address] | | | | | | [phone] | | | | | | | | +--------+---------+ + + + | 04/12/ | Office | Primary Care | Massimo Ramos | | | 2019 | Visit | | MD Fer [address] | | | | | | [place] | | | | | | [address] | | | | | | | | +--------+---------+ + + + | 10/03/ | Office | Neurology | Fabián Carias MD | | | 2019 | Visit | | [address] | | | | | | [place] | | | | | | [address] | | | | | | | [...] | | care | | | Grinder Watch Parts-C | | | | | | | [...] | | care | | | Grinder Watch Parts-C | | | | | | | [...] | | care | | | Grinder Watch Parts-C | | | | | | | [...] | | care | | | Grinder Watch Parts-C | | | | | | | linical | + +--------+ +---+-----+ + + + | Note: Pt will | | check CBG's daily x1 | | Pt will take Lantis as | | prescribed | + + documented as of this encounter Visit Diagnoses Not on filedocumented in this encounter"
--- OUTSIDE RECORDS SUMMARY | ~2019-02-17 | XMS | Encounter Summary ---
Demographics + + + | Address | [address] | | | [place] [address] | + + + | Home Phone [...] Providers + +------+ + | Care Agricultural Equipment Mechanic Name | Role | Phone | [...] | | | | | [address] [place], | [address] | | | | | [place] [address] | [phone] | | | | | [phone] | | | +--------+--------+ + + + [...] [place] | | | | | | [address] | | | | | | [phone] | | | | | | | | +--------+---------+ + + + | 02/26/ | Office | Urology | Lillie Fowler | | | 2018 | Visit | | [address] | | | | | | [address] | | | | | | [place], [place] | | | | | | [address] | | | | | | [phone] | | | | | | | | +--------+---------+ + + + | 03/16/ | Office | Neurology | Theresa, | | | 2018 | Visit | | [address] | | | | | | [address] [place], | | | | | | [place] [address] | | | | | | [phone] | | | | | | | | +--------+---------+ + + + | 04/12/ | Office | Primary Care | Massimo Ramos | | | 2019 | Visit | | MD Fer [address] | | | | | | [place] | | | | | | [address] | | | | | | | | +--------+---------+ + + + | 10/03/ | Office | Neurology | Fabián Carias MD | | | 2019 | Visit | | [address] | | | | | | [place] | | | | | | [address] | | | | | | | [...] | | | care | | | Herbologist-C | | | | | | | [...] | | | care | | | Herbologist-C | | | | | | | [...] | | | care | | | Herbologist-C | | | | | | | [...] | | | care | | | Herbologist-C | | | | | | | linical | + +--------+ +---+-----+ + + + | Note: Pt will | | check CBG's daily x1 | | Pt will take Lantis as | | prescribed | + + documented as of this encounter Visit Diagnoses Not on filedocumented in this encounter"
--- OUTSIDE RECORDS SUMMARY | ~2019-02-17 | XMS | Encounter Summary ---
Demographics + + + | Address | [address] | | | [place] [address] | + + + | Home Phone [...] Providers + +------+ + | Care Associate Account Executive Name | Role | Phone | + [...] | [address] [place], [place] | [place] [address] | generalized | | | | [address] | [phone] | | | | | [phone] | | | +--------+ + + + [...] | | | | | | ([facility]), Multilevel | | | | [...] [place] | | | | | | [address] | | | | | | [phone] | | | | | | | | +--------+---------+ + + + | 02/26/ | Office | Urology | Lillie Fowler | | | 2018 | Visit | | [address]IE [address] | | | | | | [address] | | | | | | [place], [place] | | | | | | [address] | | | | | | [phone] | | | | | | | | +--------+---------+ + + + | 03/16/ | Office | Neurology | Theresa, | | | 2018 | Visit | | [address] | | | | | | [address] [place], | | | | | | [place] [address] | | | | | | [phone] | | | | | | | [...] [place] | | | | | | [address] | | | | | | | [...] | care | | | Manager Of Sales-C | | | | | | [...] | care | | | Manager Of Sales-C | | | | | | [...] yle | n of | | | Charlien Dos Santos, | | | | complex | | | Case | | | | care | | | Manager Of Sales-C | | | | | | [...] | care | | | Manager Of Sales-C | | | | | | [...] + + | [place] [facility] | [address] | [place] [address] | [phone] | | HOSPITAL LABORATORY | | | [...] - 1.030 | [place] | | | Eek | | | [facility] | | | [...] + + | [place] [facility] | [address] | [place] [address] | [phone] | | HOSPITAL LAB[facility]ATORY | | | [...] + | RBC | Normal | | M[facility] | | | Morphology | | | [...] + + | [place] [facility] | [address] | [place] [address] | [phone] | | HOSPITAL LABORATORY | | | [...] + + | [place] [facility] | [address] | [place] [address] | [phone] | | HOSPITAL LABORATORY | | | [...] + + | [place] [facility] | [address] | [place] [address] | [phone] | | HOSPITAL LABORATORY | | | [...] + + | [place] [facility] | [address] | [place] [address] | [phone] | | HOSPITAL LABORATORY | | | [...] | mL/min/1.73m2 | [facility] | | | [facility] | RATE,ESTIMATED | | HOSPITAL | | | | mL/min/1.11k2Rqlv than | | LABORATORY | | | [...] + + | [place] [facility] | [address] | [place] [address] | [phone] | | HOSPITAL LABORATORY | | | [...] + + | [place] [facility] | [address] | [place] [address] | [phone] | | HOSPITAL LABORATORY | | | | + + + + + ECG 12 lead (09/30/2018 2:36 PM PDT) + + | Specimen | + + | | + + + + + | Narrative | Performed At | + + + | Heart Rate: 89 | [facility] | | bpmQRS Interval: 86 msQT Interval: 348 msQTC Interval: 424 msP Ex[place]: | TRACEMASTER | | 52 degQRS [place]: -1 degT Wave [place]: 18 degP-R Interval: 176 msec- | | [...]
--- OUTSIDE RECORDS SUMMARY | ~2019-02-17 | XMS | Encounter Summary ---
Demographics + + + | Address | [address] | | | [place] [address] | + + + | Home Phone [...] Providers + +------+ + | Care Bilingual Loan Processor Name | Role | Phone | [...] | Diagnoses | [place] | [facility] | | | | | | [place] | Regional | | | | | Office/outpa | MEDICAL | Primary Care | | | | | tient visit | [address] | [address] [facility] | | | | | est | [address] [place] | [place] | | | | | [address], | [address] | [address] | | | | | Authorized | [address] [place] | Phone: | | | | | For any | MARCELO [place]ANG[place] | [phone] | | | | | clinically | [address] | Fax: | | | | | necessary | Phone: | [phone] | | | | | Visits for | [phone] | | | | | | 365 days | Fax: | | | | | | AUTH NO: | [phone] | | | | | | [id number] | | | +--------+--------+ + + + + Encounter Details +--------+---------+ + + + | Date | Type | Department | Care Team | Description | +--------+---------+ + + + | 10/27/ | Office | [place] [facility] | Horacio Silvestre, | Panlobular emphysema | | 2019 | Visit | [facility] | DO [address] | ([facility]) (Primary Dx); | | | | MEDICAL [facility] [address] | [place], [place] | Mediastinal | | | | [address] [place], | [address] | lymphadenopathy; | | | | [place] [address] | [phone] | History of bacterial | | | | [phone] | | pneumonia; Acquired | | | [...] CATARACT REMOVAL; Surgeon: Tay Kern MD; Location: [facility] [employer] [facility] [...] [place] | | | | | | [address] | | | | | | [phone] | | | | | | | | +--------+---------+ + + + | 02/26/ | Office | Urology | Lillie Fowler | | | 2018 | Visit | | LILLIE Lopez [address] | | | | | | [address] | | | | | | [place] | | | | | | [address] | | | | | | [phone] | | | | | | | | +--------+---------+ + + + | 03/16/ | Office | Neurology | Theresa, | | | 2018 | Visit | | SHONDA Mckinney [address] [place], | | | | | | [place] [address] | | | | | | [phone] | | | | | | | | +--------+---------+ + + + | 04/12/ | Office | Primary Care | Massimo Ramos | | | 2019 | Visit | | MD Fer [address] | | | | | | [address] [place] | | | | | | [address] | | | | | | | | +--------+---------+ + + + | 10/03/ | Office | Neurology | Fabián Carias MD | | | 2019 | Visit | | [address] | | | | | | [place] | | | | | | [address] | | | | | | | [...] | | | care | | | [facility] | | | | | | | [...] | | | care | | | [facility] | | | | | | | [...] | | | care | | | [facility] | | | | | | | [...] | | | care | | | [facility] | | | | | | | [...] + + | [place] [facility] | [address] | [place] [address] | [phone] | | [facility] | | | | | [facility] | | | | [...]
--- OUTSIDE RECORDS SUMMARY | ~2019-02-17 | XMS | Encounter Summary ---
Demographics + + + | Address | [address] | | | [place] [address] | + + + | Home Phone [...] Team Providers + +------+ + | Care Irrigation Laborer Name | Role | Phone | + +------+ + | Horacio Silvestre DO | PCP | | + +------+ + Encounter Details +--------+ + + + + | Date | Type | Department | Care Team | Description | +--------+ + + + + | 11/05/ | Abstract | [facility] | Arpan Elegurjit Dos Santos, | | | 2018 | | [facility] | RN | | | | | SURGERY [address] | | | | | | [address] [place], | | | | | | [place] [address] | | | | | | [phone] | | | +--------+ + + + [...] [place] | | | | | | [address] | | | | | | [phone] | | | | | | | | +--------+---------+ + + + | 02/26/ | Office | Urology | MalcolmSergioa | | | 2018 | Visit | | LILLIE [address] | | | | | | [address] | | | | | | [place], [place] | | | | | | [address] | | | | | | [phone] | | | | | | | | +--------+---------+ + + + | 03/16/ | Office | Neurology | Theresa, | | | 2018 | Visit | | [address] | | | | | | [address] [place], | | | | | | [place] [address] | | | | | | [phone] | | | | | | | [...] [place] | | | | | | [address] | | | | | | | [...] | care | | | Director Of Food And Nutrition-C | | | | | | | [...] | care | | | Director Of Food And Nutrition-C | | | | | | | [...] | care | | | Director Of Food And Nutrition-C | | | | | | | [...] | care | | | Director Of Food And Nutrition-C | | | | | | | [...]
--- OUTSIDE RECORDS SUMMARY | ~2019-02-17 | XMS | Encounter Summary ---
Demographics + + + | Address | [address] | | | [place] [address] | + + + | Home Phone [...] Team Providers + +------+ + | Care Heel Gouger Name | Role | Phone | + [...] | | | [facility] | [place] [address] | | | | | [address] [place], | [phone] | | | | | [place] [address] | | | | | | [phone] | | | +--------+ + + + [...] [place] | | | | | | [address] | | | | | | [phone] | | | | | | | | +--------+---------+ + + + | 02/26/ | Office | Urology | Lillie Fowler | | | 2018 | Visit | | [address] | | | | | | [address] | | | | | | [place], [place] | | | | | | [address] | | | | | | [phone] | | | | | | | | +--------+---------+ + + + | 03/16/ | Office | Neurology | Theresa, | | | 2018 | Visit | | [address] | | | | | | [address] [place], | | | | | | [place] [address] | | | | | | [phone] | | | | | | | | +--------+---------+ + + + | 04/12/ | Office | Primary Care | Massimo Ramos | | | 2019 | Visit | | MD Fer [address] | | | | | | [place] | | | | | | [address] | | | | | | | | +--------+---------+ + + + | 10/03/ | Office | Neurology | Fabián Carias MD | | | 2019 | Visit | | [address] | | | | | | [place] | | | | | | [address] | | | | | | | [...] | | | care | | | Harbor Engineer-C | | | | | | [...] | | | care | | | Harbor Engineer-C | | | | | | [...] | | | care | | | Harbor Engineer-C | | | | | | [...] | | | care | | | Harbor Engineer-C | | | | | | | linical | + +--------+ +---+-----+ + + + | Note: Pt will | | check CBG's daily x1 | | Pt will take Lantis as | | prescribed | + + documented as of this encounter Visit Diagnoses Not on filedocumented in this encounter"
--- OUTSIDE RECORDS SUMMARY | ~2019-02-17 | XMS | Encounter Summary ---
Demographics + + + | Address | [address] | | | [place] [address] | + + + | Home Phone [...] Team Providers + +------+ + | Care Wharf Worker Name | Role | Phone | [...] | | | [facility] [address] | [facility], [place] | | | | | [address] [place], | [address] | | | | | [place] [address] | [phone] | | | | | [phone] | | | +--------+--------+ + + + [...] [place] | | | | | | [address] | | | | | | [phone] | | | | | | | | +--------+---------+ + + + | 02/26/ | Office | Urology | Lillie Fowler | | | 2018 | Visit | | [address] | | | | | | [address] | | | | | | [place], [place] | | | | | | [address] | | | | | | [phone] | | | | | | | | +--------+---------+ + + + | 03/16/ | Office | Neurology | Theresa, | | | 2018 | Visit | | [address] | | | | | | [address] [place], | | | | | | [place] [address] | | | | | | [phone] | | | | | | | | +--------+---------+ + + + | 04/12/ | Office | Primary Care | Massimo Ramos | | | 2019 | Visit | | MD [address] | | | | | | [place] | | | | | | [address] | | | | | | | | +--------+---------+ + + + | 10/03/ | Office | Neurology | Fabián Carias MD | | | 2019 | Visit | | [address] | | | | | | [place] | | | | | | [address] | | | | | | | [...] | care | | | Vice President Fixed Income-C | | | | | [...] | care | | | Vice President Fixed Income-C | | | | | [...] | care | | | Vice President Fixed Income-C | | | | | [...] | care | | | Vice President Fixed Income-C | | | | | | | linical | + +--------+ +---+-----+ + + + | Note: Pt will | | check CBG's daily x1 | | Pt will take Lantis as | | prescribed | + + documented as of this encounter Visit Diagnoses Not on filedocumented in this encounter"
--- OUTSIDE RECORDS SUMMARY | ~2019-02-17 | XMS | Encounter Summary ---
Demographics + + + | Address | [address] | | | [place] [address] | + + + | Home Phone [...] Team Providers + +------+ + | Care Applications Systems Analyst Name | Role | Phone | + +------+ + | Horacio Silvestre DO | PCP | | + +------+ + Reason for Visit + + + | Reason | Comments | + + + | Urine Problem | | + + + Encounter Details +--------+ + + + + | Date | Type | Department | Care Team | Description | +--------+ + + + + | 12/08/ | Telephone | [facility] | Horacio Silvestre, | Urine Problem | | 2018 | | [facility] | DO [address] | | | | | [facility] [address] | [facility], [place] | | | | | [address] [place], | [address] | | | | | [place] [address] | [phone] | | | | | [phone] | | | +--------+ + + + [...] [place] | | | | | | [address] | | | | | | [phone] | | | | | | | | +--------+---------+ + + + | 02/26/ | Office | Urology | Lillie Fowler | | | 2018 | Visit | | [address] | | | | | | [address] | | | | | | [place], [place] | | | | | | [address] | | | | | | [phone] | | | | | | | | +--------+---------+ + + + | 03/16/ | Office | Neurology | Theresa, | | | 2018 | Visit | | [address] | | | | | | [address] [place], | | | | | | [place] [address] | | | | | | [phone] | | | | | | | | +--------+---------+ + + + | 04/12/ | Office | Primary Care | Massimo Ramos | | | 2019 | Visit | | MD Fer [address] | | | | | | [place] | | | | | | [address] | | | | | | | | +--------+---------+ + + + | 10/03/ | Office | Neurology | Fabián Carias MD | | | 2019 | Visit | | [address] | | | | | | [place] | | | | | | [address] | | | | | | | [...] | care | | | Director Of Social Media Marketing-C | | | | | | [...] | care | | | Director Of Social Media Marketing-C | | | | | | [...] | care | | | Director Of Social Media Marketing-C | | | | | | [...] | care | | | Director Of Social Media Marketing-C | | | | | | | linical | + +--------+ +---+-----+ + + + | Note: Pt will | | check CBG's daily x1 | | Pt will take Lantis as | | prescribed | + + documented as of this encounter Results Urinalysis with Microscopic with Culture if Indicated (12/08/2018 12:36 PM PDT) + + + + + [...] - 1.030 | [facility] | | | [place] | | | [place]ONDE | | | [...] + + + + + + | BUDDING | Moderate (A) | None seen | [facility] | | | [facility] | | | RONDE | | [...] + + | [facility] | [address] [facility] | [place] [address] | [phone] | | [facility] | | | | | [facility] | | | | + + + + + documented in this encounter Visit Diagnoses + + | Diagnosis | + + | Dysuria - Primary | + + documented in this encounter Additional Health Concerns + + + + | Infection | Noted Time | Resolved Time | + + + + | Methicillin-resistant Staphylococcus aureus | 07/20/2018 4:00 PM | | | | PDT | | + + + + documented as of this encounter"
--- OUTSIDE RECORDS SUMMARY | ~2019-02-17 | XMS | Encounter Summary ---
Demographics + + + | Address | [address] | | | [place] [address] | + + + | Home Phone [...] Providers + +------+ + | Care Ring Attacher Name | Role | Phone | + [...] + + | 01/07/ | Telephone | [facility] | Charline Banks, | Care Coordination | | 2019 | | [facility] | Case | | | | | [facility] [address] | Tap Grinder-Clinical | | | | | [address] [facility], | | | | | | [place] [address] | | | | | | [phone] | | | +--------+ + + + [...] [place] | | | | | | [address] | | | | | | [phone] | | | | | | | | +--------+---------+ + + + | 02/26/ | Office | Urology | Lillie Fowler | | | 2018 | Visit | | [address] | | | | | | [address] | | | | | | [place], [place] | | | | | | [address] | | | | | | [phone] | | | | | | | | +--------+---------+ + + + | 03/16/ | Office | Neurology | Theresa, | | | 2018 | Visit | | [address] | | | | | | [address] [place], | | | | | | [place] [address] | | | | | | [phone] | | | | | | | | +--------+---------+ + + + | 04/12/ | Office | Primary Care | Massimo Ramos Pedro Luis | | | 2019 | Visit | | MD Fer [address] | | | | | | [place] | | | | | | [address] | | | | | | | | +--------+---------+ + + + | 10/03/ | Office | Neurology | Fabián Carias MD | | | 2019 | Visit | | [address] | | | | | | [place] | | | | | | [address] | | | | | | | [...] | | | care | | | Tap Grinder-C | | | | | | [...] | | | care | | | Tap Grinder-C | | | | | | [...] | | | care | | | Tap Grinder-C | | | | | | [...] | | | care | | | Tap Grinder-C | | | | | | [...]
--- OUTSIDE RECORDS SUMMARY | ~2019-02-17 | XMS | Encounter Summary ---
Demographics + + + | Address | [address] | | | [place] [address] | + + + | Home Phone [...] Team Providers + +------+ + | Care C Iron Worker Name | Role | Phone | [...] | | | CENTER [address] | [facility] | | | | | DR [place], [place] | [place] [address] | | | | | [address] | [phone] | | | | | [phone] | | | +--------+ + + + [...] [place] | | | | | | [address] | | | | | | [phone] | | | | | | | | +--------+---------+ + + + | 02/26/ | Office | Urology | Lillie Fowler | | | 2018 | Visit | | [address] | | | | | | [address] | | | | | | [place] | | | | | | [address] | | | | | | [phone] | | | | | | | | +--------+---------+ + + + | 03/16/ | Office | Neurology | Theresa, | | | 2018 | Visit | | [address] | | | | | | [address] [place], | | | | | | [place] [address] | | | | | | [phone] | | | | | | | | +--------+---------+ + + + | 04/12/ | Office | Primary Care | Massimo Ramos | | | 2019 | Visit | | MD Fer [address] | | | | | | [place] | | | | | | [address] | | | | | | | | +--------+---------+ + + + | 10/03/ | Office | Neurology | Fabián Carias MD | | | 2019 | Visit | | [address] | | | | | | [place] | | | | | | [address] | | | | | | | [...] | care | | | Vice President Residential Solar Sales-C | | | | | | [...] | care | | | Vice President Residential Solar Sales-C | | | | | | [...] | care | | | Vice President Residential Solar Sales-C | | | | | | [...] | care | | | Vice President Residential Solar Sales-C | | | | | | [...] - 1.030 | EXTERNAL | | | [place], | | | LAB | | | [...]
--- OUTSIDE RECORDS SUMMARY | ~2019-02-17 | XMS | Encounter Summary ---
Demographics + + + | Address | [address] | | | [place] [address] | + + + | Home Phone [...] Team Providers + +------+ + | Care Board Mill Supervisor Name | Role | Phone | [...] [address] | | | | | [place] [address] | | | | | | [phone] | | | +--------+ + + + [...] [place] | | | | | | [address] | | | | | | [phone] | | | | | | | | +--------+---------+ + + + | 02/26/ | Office | Urology | Lillie Fowler | | | 2018 | Visit | | [address] | | | | | | [address] | | | | | | [place] | | | | | | [address] | | | | | | [phone] | | | | | | | | +--------+---------+ + + + | 03/16/ | Office | Neurology | Theresa, | | | 2018 | Visit | | [address] | | | | | | [address] [place], | | | | | | [place] [address] | | | | | | [phone] | | | | | | | | +--------+---------+ + + + | 04/12/ | Office | Primary Care | Massimo Ramos | | | 2019 | Visit | | MD [address] | | | | | | [place] | | | | | | [address] | | | | | | | | +--------+---------+ + + + | 10/03/ | Office | Neurology | Fabián Carias MD | | | 2019 | Visit | | [address] | | | | | | [place] | | | | | | [address] | | | | | | | [...] | | | care | | | Ground Equipment Mechanic-C | | | | | | [...] | | | care | | | Ground Equipment Mechanic-C | | | | | | [...] | | | care | | | Ground Equipment Mechanic-C | | | | | | [...] | | | care | | | Ground Equipment Mechanic-C | | | | | | [...]
--- OUTSIDE RECORDS SUMMARY | ~2019-02-17 | XMS | Encounter Summary ---
Demographics + + + | Address | [address] | | | [place] [address] | + + + | Home Phone [...] Team Providers + +------+ + | Care Crop Scout Name | Role | Phone | + +------+ + | Massiom Ramos MD | PCP | | + [...] | | | [facility] [address] | [employer] Banker-Clinical | | | | | [facility] [facility], | | | | | | [place] [address] | | | | | | [phone] | | | +--------+ + + + [...] [place] | | | | | | [address] | | | | | | [phone] | | | | | | | | +--------+---------+ + + + | 02/26/ | Office | Urology | Lillie Fowler | | | 2018 | Visit | | [address] | | | | | | [address] | | | | | | [place], [place] | | | | | | [address] | | | | | | [phone] | | | | | | | | +--------+---------+ + + + | 03/16/ | Office | Neurology | Theresa, | | | 2018 | Visit | | [address] | | | | | | [address] [place], | | | | | | [place] [address] | | | | | | [phone] | | | | | | | | +--------+---------+ + + + | 04/12/ | Office | Primary Care | Massimo Ramos Pedro Luis | | | 2019 | Visit | | MD Fer [address] | | | | | | [place] | | | | | | [address] | | | | | | | | +--------+---------+ + + + | 10/03/ | Office | Neurology | Fabián Carias MD | | | 2019 | Visit | | [address] | | | | | | [place] | | | | | | [address] | | | | | | | [...] | | | care | | | [employer] Banker-C | | | | | | | [...] | | | care | | | [employer] Banker-C | | | | | | | [...] | | | care | | | [employer] Banker-C | | | | | | | [...] | | | care | | | [employer] Banker-C | | | | | | | [...]
--- OUTSIDE RECORDS SUMMARY | ~2019-02-17 | XMS | Encounter Summary ---
Demographics + + + | Address | [address] | | | [place] [address] | + + + | Home Phone [...] Providers + +------+ + | Care Director Business Development Name | Role | Phone | + [...] Appointment Question | | 2019 | | [facility] | | (Echo & EEG) | | | | CLINIC [address] | | | | | | [address] [place], | | | | | | [place] [address] | | | | | | [phone] | | | +--------+ + + + [...] [place] | | | | | | [address] | | | | | | [phone] | | | | | | | | +--------+---------+ + + + | 02/26/ | Office | Urology | Lillie Fowler | | | 2018 | Visit | | [address] | | | | | | [address] | | | | | | [place], [place] | | | | | | [address] | | | | | | [phone] | | | | | | | | +--------+---------+ + + + | 03/16/ | Office | Neurology | Theresa, | | | 2018 | Visit | | [address] | | | | | | [address] [place], | | | | | | [place] [address] | | | | | | [phone] | | | | | | | | +--------+---------+ + + + | 04/12/ | Office | Primary Care | Massimo Ramos Pedro Luis | | | 2019 | Visit | | MD Fer [address] | | | | | | [place] | | | | | | [address] | | | | | | | | +--------+---------+ + + + | 10/03/ | Office | Neurology | Fabián Carias MD | | | 2019 | Visit | | [address] | | | | | | [place] | | | | | | [address] | | | | | | | [...] | | | care | | | Hip Hop Dance Instructor-C | | | | | | [...] | | | care | | | Hip Hop Dance Instructor-C | | | | | | [...] | | | care | | | Hip Hop Dance Instructor-C | | | | | | [...] | | | care | | | Hip Hop Dance Instructor-C | | | | | | [...]
--- OUTSIDE RECORDS SUMMARY | ~2019-02-17 | XMS | Encounter Summary ---
Demographics + + + | Address | [address] | | | [place] [address] | + + + | Home Phone [...] Team Providers + +------+ + | Care Composing Room Supervisor Name | Role | Phone [...] | | | [address] [place], | [facility], [place] | | | | | [place] [address] | [address] | | | | | [phone] | [phone] | | | | | | | [...] [place] | | | | | | [address] | | | | | | [phone] | | | | | | | | +--------+---------+ + + + | 02/26/ | Office | Urology | Lillie Fowler | | | 2018 | Visit | | [address] | | | | | | [address] | | | | | | [place] | | | | | | [address] | | | | | | [phone] | | | | | | | | +--------+---------+ + + + | 03/16/ | Office | Neurology | Theresa, | | | 2018 | Visit | | [address] | | | | | | [address] [place], | | | | | | [place] [address] | | | | | | [phone] | | | | | | | | +--------+---------+ + + + | 04/12/ | Office | Primary Care | Massimo Ramos | | | 2019 | Visit | | MD Fer [address] | | | | | | [place] | | | | | | [address] | | | | | | | | +--------+---------+ + + + | 10/03/ | Office | Neurology | Fabián Carias MD | | | 2019 | Visit | | [address] | | | | | | [place] | | | | | | [address] | | | | | | | [...] | | | care | | | Animal Care Provider-C | | | | | | | [...] | | | care | | | Animal Care Provider-C | | | | | | | [...] | | | care | | | Animal Care Provider-C | | | | | | | [...] | | | care | | | Animal Care Provider-C | | | | | | | linical | + +--------+ +---+-----+ + + + | Note: Pt will | | check CBG's daily x1 | | Pt will take Lantis as | | prescribed | + + documented as of this encounter Visit Diagnoses Not on filedocumented in this encounter"
--- OUTSIDE RECORDS SUMMARY | ~2019-02-17 | XMS | Encounter Summary ---
Demographics + + + | Address | [address] | | | [place] [address] | + + + | Home Phone [...] Team Providers + +------+ + | Care Sheet Metal Work Furnace Installer Name | Role | Phone | [...] | pain, | [place] | [address] | | | | | bilateral | [place], [place] | Phone: | | | | | Procedures | [address] | [phone] | | | | | MRI Cervical | Phone: | Fax: | | | | | Spine wo | [phone] | [phone] | | | | | Contrast | Fax: | | | | | | | [phone] | | +--------+--------+ + + + + [...] | sciatica, | [place] | [address] | | | | | unspecified | [place], [place] | Phone: | | | | | back pain | [address] | [phone] | | | | | laterality | Phone: | Fax: | | | | | Procedures | [phone] | [phone] | | | | | MRI Lumbar | Fax: | | | | | | Spine wo | [phone] | | | | | | Contrast [...] | [address] [place], | [address] | polyneuropathy, with | | | | [place] [address] | | long-term current | | | | [phone] | | use of insulin (HCC) | | | | | | (Primary Dx); Left | | | | | | shoulder pain, | | | | | | unspecified | | | | | | chronicity; | | | | | | Multilevel | | | | | | degenerative disc | | | | | | disease; residential | | | | | | current [...] be different from the original. Patient Instructions [facility] Neurology Clinic Dr. Jalyn Carias, Neurologist Date:12/15/2017 [...] le, and scrabble, other puzzle games like [employer], [employer]. Play computer/mobile applications such as [employer] and [employer] Discussed Anodyne therapy/Light therapy Any Questions please call JAMAAL Marroquin or Dr. Carias at [facility] Neurology Clinic General Neck and [...] are taking other medicines. You may use euoc-mrn-cvpifhn medicine to control pain, unless another pain [...] by your healthcare provider Date Last Reviewed: 10/06/201519999280-6861 [employer]. [address] [place] [address], [place] [address]. All righ ts reserved. This information is [...] use ice several times a day. ?Medicines Zbry-lgv-jeqtsms pain relievers can includeacetaminophen and anti-inflammatory medicines, [...] a heating p ad. Date Last Reviewed: 12/06/201419993239-4270 [employer]. [address] [place] [address], [place] [address]. All righ ts reserved. This information is [...] cut down on salt. A dietitian or parent educator can help form a meal plan [...] lab tests as scheduled. Date Last Reviewed: 08/24/201519994935-5558 [employer]. [address] [place] [address], [place] [address]. All righ ts reserved. This information is [...] you take. This includes prescription an d ndzv-qde-pustkpj medicines, vitamins, and herbs. Ask if any of the medicines may be causin g your problems. Don't make any changes to prescription medicines without talking to your [facility] provider first. You may be prescribed medicines [...] speaking, walking, or seeing Date Last Reviewed: 06/05/201719998399-5690 [employer]. [address] [place] [address], [place] [address]. All righ ts reserved. This information is [...] massage, and other methods. Date Last Reviewed: 04/07/201719991240-3759 [employer]. [address] [place] [address]. All [facility] ts reserved. This information is not [...] acupuncture, massage, and others. Date Last Reviewed: 03/07/201719997546-7662 [employer]. [address] [place] [address], [place] [address]. All righ ts reserved. This information is [...] [place] | | | | | | [address] | | | | | | [phone] | | | | | | | | +--------+---------+ + + + | 02/26/ | Office | Urology | Lillie Fowler | | | 2018 | Visit | | [address] | | | | | | [address] | | | | | | [place], [place] | | | | | | [address] | | | | | | [phone] | | | | | | | | +--------+---------+ + + + | 03/16/ | Office | Neurology | Theresa, | | | 2018 | Visit | | [address] | | | | | | [address] [place], | | | | | | [place] [address] | | | | | | [phone] | | | | | | | | +--------+---------+ + + + | 04/12/ | Office | Primary Care | Massimo Ramos Pedro Luis | | | 2019 | Visit | | MD Fer [address] | | | | | | [place] | | | | | | [address] | | | | | | | | +--------+---------+ + + + | 10/03/ | Office | Neurology | Jalyn Carias MD | | | 2019 | Visit | | [address] | | | | | | [place] | | | | | | [address] | | | | | | | [...] | | | care | | | Rib Knitter-C | | | | | | | [...] | | | care | | | Rib Knitter-C | | | | | | | [...] | | | care | | | Rib Knitter-C | | | | | | | [...] | | | care | | | Rib Knitter-C | | | | | | | [...] JALYN CARIAS M.D. | | | Neurologist [phone] Electronically signed NOTE: Part of | | | this report was transcribed using voice recognition | | | software. Every effort was made to ensure | | | accuracy. However, inadvertent computerize | | | procurement buyer errors may be present | | + [...] FINDINGS: There are 5 | | | bza-oqu-nfiaecj lumbar vertebral bodies. There is straightening of [...] performed | | without contrast.FINDINGS:There are 5 irg-kme-uwyovql lumbar vertebral bodies.There is | | straightening [...] compared November 08 | | 2016Dictated by: aMssimo Hutchinsonam | | 10:39 AM | | [...] | | unspecified | + + | residential current use 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
--- OUTSIDE RECORDS SUMMARY | ~2019-02-17 | XMS | Encounter Summary ---
Demographics + + + | Address | [address] | | | [place] [address] | + + + | Home Phone [...] Providers + +------+ + | Care Event Representative Name | Role | Phone | [...] | | | | MANAGEMENT [address] | Roller Painter-Clinical | | | | | [address] | | | | | | [place] | | | | | | [address] | | | | | | [phone] | | | +--------+ + + + [...] [place] | | | | | | [address] | | | | | | [phone] | | | | | | | | +--------+---------+ + + + | 02/26/ | Office | Urology | Lillie Fowler | | | 2018 | Visit | | [address]IE [address] | | | | | | [address] | | | | | | [place], [place] | | | | | | [address] | | | | | | [phone] | | | | | | | | +--------+---------+ + + + | 03/16/ | Office | Neurology | Theresa, | | | 2018 | Visit | | [address] | | | | | | [address] [place], | | | | | | [place] [address] | | | | | | [phone] | | | | | | | | +--------+---------+ + + + | 04/12/ | Office | Primary Care | Massimo Ramos Pedro Luis | | | 2019 | Visit | | [address] | | | | | | [place] | | | | | | [address] | | | | | | | | +--------+---------+ + + + | 10/03/ | Office | Neurology | Fabián Carias MD | | | 2019 | Visit | | [address] | | | | | | [place] | | | | | | [address] | | | | | | | [...] | | | care | | | Roller Painter-C | | | | | | [...] | | | care | | | Roller Painter-C | | | | | | [...] | | | care | | | Roller Painter-C | | | | | | [...] | | | care | | | Roller Painter-C | | | | | | | linical | + +--------+ +---+-----+ + + + | Note: Pt will | | check CBG's daily x1 | | Pt will take Lantis as | | prescribed | + + documented as of this encounter Visit Diagnoses Not on filedocumented in this encounter"
--- OUTSIDE RECORDS SUMMARY | ~2019-02-17 | XMS | Encounter Summary ---
Demographics + + + | Address | [address] | | | [place] [address] | + + + | Home Phone [...] Providers + +------+ + | Care Digital Court Reporter Name | Role | Phone | + [...] [facility] | [facility], [place] | | | | | [address] [place], | [address] | | | | | [place] [address] | [phone] | | | | | [phone] | | | +--------+ + + + [...] [place] | | | | | | [address] | | | | | | [phone] | | | | | | | | +--------+---------+ + + + | 02/26/ | Office | Urology | Lillie Fowler | | | 2018 | Visit | | [address] | | | | | | [address] | | | | | | [place], [place] | | | | | | [address] | | | | | | [phone] | | | | | | | | +--------+---------+ + + + | 03/16/ | Office | Neurology | Theresa, | | | 2018 | Visit | | [address] | | | | | | [address] [place], | | | | | | [place] [address] | | | | | | [phone] | | | | | | | | +--------+---------+ + + + | 04/12/ | Office | Primary Care | Massimo Ramos | | | 2019 | Visit | | [address] | | | | | | [place] | | | | | | [address] | | | | | | | | +--------+---------+ + + + | 10/03/ | Office | Neurology | Fabián Carias MD | | | 2019 | Visit | | [address] | | | | | | [place] | | | | | | [address] | | | | | | | [...] | | | care | | | Thermostat Repairer-C | | | | | | [...] | | | care | | | Thermostat Repairer-C | | | | | | [...] | | | care | | | Thermostat Repairer-C | | | | | | [...] | | | care | | | Thermostat Repairer-C | | | | | | [...]
--- OUTSIDE RECORDS SUMMARY | ~2019-02-17 | XMS | Encounter Summary ---
Demographics + + + | Address | [address] | | | [place] [address] | + + + | Home Phone [...] Team Providers + +------+ + | Care Psychologist Engineering Name | Role | Phone | + [...] [place], [place] | | | | | [address] | [address] | | | | | [phone] | [phone] | | | | | | | [...] [place] | | | | | | [address] | | | | | | [phone] | | | | | | | | +--------+---------+ + + + | 02/26/ | Office | Urology | Lillie Fowler | | | 2018 | Visit | | [address] | | | | | | [address] | | | | | | [place] | | | | | | [address] | | | | | | [phone] | | | | | | | | +--------+---------+ + + + | 03/16/ | Office | Neurology | Theresa, | | | 2018 | Visit | | [address] | | | | | | [address] [place], | | | | | | [place] [address] | | | | | | [phone] | | | | | | | | +--------+---------+ + + + | 04/12/ | Office | Primary Care | Massimo Ramos | | | 2019 | Visit | | [address] | | | | | | [place] | | | | | | [address] | | | | | | | | +--------+---------+ + + + | 10/03/ | Office | Neurology | Fabián Carias MD | | | 2019 | Visit | | [address] | | | | | | [place] | | | | | | [address] | | | | | | | [...] | | care | | | General Matcher-C | | | | | | | [...] | | care | | | General Matcher-C | | | | | | | [...] | | care | | | General Matcher-C | | | | | | | [...] | | care | | | General Matcher-C | | | | | | | [...]
--- OUTSIDE RECORDS SUMMARY | ~2019-02-17 | XMS | Encounter Summary ---
Demographics + + + | Address | [address] | | | [place] [address] | + + + | Home Phone [...] Team Providers + +------+ + | Care Horticultural Farm Manager Name | Role | Phone | [...] [address] | | | | | [place] [address] | | | | | | [phone] | | | +--------+ + + + [...] [place] | | | | | | [address] | | | | | | [phone] | | | | | | | | +--------+---------+ + + + | 02/26/ | Office | Urology | Lillie Fowler | | | 2018 | Visit | | [address] | | | | | | [address] | | | | | | [place], [place] | | | | | | [address] | | | | | | [phone] | | | | | | | | +--------+---------+ + + + | 03/16/ | Office | Neurology | Theresa, | | | 2018 | Visit | | [address] | | | | | | [address] [place], | | | | | | [place] [address] | | | | | | [phone] | | | | | | | | +--------+---------+ + + + | 04/12/ | Office | Primary Care | Richard Massimo Pedro Luis | | | 2019 | Visit | | [address] | | | | | | [place] | | | | | | [address] | | | | | | | | +--------+---------+ + + + | 10/03/ | Office | Neurology | Fabián Carias MD | | | 2019 | Visit | | [address] | | | | | | [place] | | | | | | [address] | | | | | | | [...] | | care | | | Slitter Creaser Slotter Operator-C | | | | | | [...] | | care | | | Slitter Creaser Slotter Operator-C | | | | | | [...] | | care | | | Slitter Creaser Slotter Operator-C | | | | | | [...] | | care | | | Slitter Creaser Slotter Operator-C | | | | | | | linical | + +--------+ +---+-----+ + + + | Note: Pt will | | check CBG's daily x1 | | Pt will take Lantis as | | prescribed | + + documented as of this encounter Visit Diagnoses Not on filedocumented in this encounter"
--- OUTSIDE RECORDS SUMMARY | ~2019-02-17 | XMS | Encounter Summary ---
Demographics + + + | Address | [address] | | | [place] [address] | + + + | Home Phone [...] Team Providers + +------+ + | Care Note Keeper Name | Role | Phone | + [...] | Procedures | [place], | [address] | | | | | ABD PAIN | [place] | [place] | | | | | | [address] | [place], [place] | | | | | | Phone: | [phone] | | | | | | [phone] | Phone: | | | | | | Fax: | [phone] | | | | | | [phone] | Fax: | | | | | | | [phone] | +--------+ + + + + + Reason for Visit +--------+ + | Reason | Comments | +--------+ + | Other | Lesion removal on left shoulder | +--------+ + Encounter Details +--------+ + + + + | Date | Type | Department | Care Team | Description | +--------+ + + + + | 02/19/ | Procedure | [facility] | Lizbeth Reddy NP | Upper respiratory | | 2017 | visit | [facility] | [address] | tract infection, | | | | [facility] [address] | [place], [place] | unspecified type | | | | [address] [place], | [address] | (Primary Dx); | | | | [place] [address] | [phone] | Abdominal discomfort | | | | [phone] | | | +--------+ + + + [...] + + + | Blood Pressure | 142/82 | 02/19/2017 1:07 PM | | | | | PST | | + + + + + | Pulse | 76 | 02/19/2017 1:07 PM | | | | | PST | | + + + + + | Temperature | - | - | | + + + + + | Respiratory Rate | 16 | 02/19/2017 1:07 PM | | | | | PST | | + + + + + | Oxygen Saturation | 92% | 02/19/2017 1:07 PM | | | | | PST | | + + + + + | Inhaled Oxygen | - | - | | | Concentration | | | | + + + + + | Weight | 91.6 kg (202 lb) | 02/19/2017 1:07 PM | | | | | PST | | + + + + + | Height | 167.6 cm (5' 6") | 02/19/2017 1:07 PM | | | | | PST | | + + + + + | Body Mass Index | 32.6 | 02/19/2017 1:07 PM | | | | | PST | | + + + + + documented in this encounter Patient Instructions Patient Instructions Lizbeth Reddy NP - 02/19/2017 1:00 PM PSTWe will call with pathology report once received. documented in this encounter Progress Notes Marcelina Khanna CC CMA - 02/19/2017 1:00 PM PSTPatient informed as listed below. Marcelina Tim. izbeth Reddy NP - 02/19/2017 1:00 PM PST Patient ID: Geraldo Mcfadden is a 76 y.o. year old male Chief Complaint: Chief Complaint Patient presents with Other Lesion removal on left shoulder Assessment and Plan: 1. Upper respiratory tract infection, unspecified type - Azithromycin (ZITHROMAX) 250 mg tablet; Take 2 tablets by mouth on day 1, and 1 tablet by mouth every day Dispense: 6 tablet; Refill: 0 2. Changing skin lesion: -Shave bx today, specimen sent to pathology. 3. Abdominal (soft tissue) discomfort: -H/O ventral hernia repair. -Referral to Dr. De Oliveira for evaluation as requested by patient. Subjective: Mr. Mcfadden is a 76 year old male patient presenting for a lesion removal, upper respiratory s ymptoms, and continued lower abdominal discomfort due to abdominal tissue. Lesion is locate d to his left shoulder/neck area. It is painful and catches on his shirt. He has a persona l history of skin cancer and has had skin grafts and a MOHs procedure in the past. He has h ad nasal congestion for the past few weeks. He feels like it is moving into his lungs. He has had a productive cough. He has a history of a ventral hernia repair and has now develop ed a band of tissue across his lower abdomen. States it can be painful when it catches on h is jeans. He would like a referral to Dr. De Oliveira for evaluation as he performed his ventra l hernia repair. Allergies: Allergies Allergen Reactions Zolpidem Anaphylaxis Medications: Current Outpatient Prescriptions Medication Sig Dispense Refill aspirin 325 mg tablet Take 325 mg by mouth Daily. atenolol (TENORMIN) 25 mg tablet Take 25 mg by mouth Daily. azithromycin (ZITHROMAX) 250 mg tablet Take 2 tablets by mouth on day 1, and 1 tablet b y mouth every day 6 tablet 0 gabapentin (NEURONTIN) 300 mg capsule Take 600 [...] Systems Constitutional: Negative for chills and fever. HENT: Positive for congestion, rhinorrhea, sinus pain and sinus pressure. Respiratory: Positive for cough and wheezing. Negative for shortness of breath. Gastrointestinal: Positive for abdominal pain. Skin: Painful and evolving lesion to left side of neck/shoulder area. Objective: Vitals: BP 142/82 | Pulse 76 | Resp 16 | Ht 1.676 m (5' 6") | Wt 91.6 kg (202 lb) | SpO2 92% | BMI 32.60 kg/m Physical Exam Constitutional: He is oriented to person, place, and time. He appears well-developed and we ll-nourished. Cardiovascular: Normal rate, regular rhythm and normal heart sounds. Pulmonary/Chest: Effort normal and breath sounds normal. No respiratory distress. He has no wheezes. He has no rales. Abdominal: Soft. He exhibits no distension and no mass. There is no tenderness. There is no guarding. Roll of soft tissue with well healed scar to lower abdominal region. Neurological: He is alert and oriented to person, place, and time. Psychiatric: He has a normal mood and affect. His behavior is normal. Judgment and thought content normal. PROCEDURE: -Consent reviewed and signed. -Area cleansed with chloraprep. -Base of lesion injected with 1 1/2 cc Lidocaine with Epi. -Lesion removed of Bioblade and specimen placed in Formalin. -Silver nitrate applied to area with small amount of bleeding. -Bacitracin with bandaid applied. -Patient tolerated procedure well. documented in this enco unter Plan of [...] [place] | | | | | | [address] | | | | | | [phone] | | | | | | | | +--------+---------+ + + + | 02/26/ | Office | Urology | Lillie Fowler | | | 2018 | Visit | | [address] | | | | | | [address] | | | | | | [place], [place] | | | | | | [address] | | | | | | [phone] | | | | | | | | +--------+---------+ + + + | 03/16/ | Office | Neurology | Theresa, | | | 2018 | Visit | | [address] | | | | | | [address] [place], | | | | | | [place] [address] | | | | | | [phone] | | | | | | | | +--------+---------+ + + + | 04/12/ | Office | Primary Care | Massimo Ramos Pedro Luis | | | 2019 | Visit | | [address] | | | | | | [place] | | | | | | [address] | | | | | | | | +--------+---------+ + + + | 10/03/ | Office | Neurology | Fabián Carias MD | | | 2019 | Visit | | [address] | | | | | | [place] | | | | | | [address] | | | | | | | [...] | | | care | | | Survey Research Center Director-C | | | | | | [...] | | | care | | | Survey Research Center Director-C | | | | | | [...] | | | care | | | Survey Research Center Director-C | | | | | | [...] | | | care | | | Survey Research Center Director-C | | | | | | [...] | + +--------+ + + + | SURGICAL PATHOLOGY | Routin | 02/19/2017 | | Results for this | | EXAM | e | 12:00 AM | | procedure are in the | | | | PST | | results section. | + +--------+ + + + documented in this encounter Results Surgical Pathology Exam (02/19/2017 12:00 AM PST) + + | Specimen | + + | | + + + + + | Narrative | Performed At | + + + | Ordering Provider Lizbeth REDDY Provider - [facility] | [place] [facility] | | /W, ZENON, [employer] MANAGEMENT /F Collected Date 20170219 Received | [facility] | | Date [id number] Completed Date [id number] Specimens: Left shoulder | | | lesion Pre-Op Diagnosis: Painful skin lesion Post-Op Diagnosis: | | | None Given Chart/ID#: [id number] Diagnosis: Skin, left shoulder, | | | biopsy: Irritated seborrheic keratosis. Lesional tissue on | | | deep and lateral margins. (see comment) Electronically Signed By: | | | Electronically Signed: Geovanny Quiros M.D. Comment: At times it | | | is difficult or impossible to differentiate between an irritated | | | seborrheic keratosis and squamous cell carcinoma in situ. This is | | | made especially difficult in this case as the base of the lesion and | | | dermal tissues are not present. The diagnosis of irritated | | | seborrheic keratosis is favored. Close clinical follow up is | | | suggested. If the lesion recurs, it should be completely re-excised. | | | Clinical Brief: None Given Gross Description: Received in a | | | container of formalin labeled "Geraldo Mcfadden, left shoulder" is a singleton | | | oval, 0.7 x 0.5 x 0.5 cm fragment of tissue. One surface is inked | | | blue. The opposite surface is inked orange. The specimen is | | | sectioned and submitted entirely in 1 cassette. The gross | | | examination is performed at [facility], [address], | | | [place] [address]. Microscopic Examination: Microscopic | | | examination by Earl Quiros M.D. User 1 Lab | | | PERFORMING LABORATORY: Tissue processing and slide preparation were | | | performed by [facility], [address] [facility], [place], [place], | | | [address] . Professional interpretation was performed by Ramone Nye | | | Pathology[facility]rzej [address], [place] [address]. | | + + + + +---------+ + + | Performing | Address | City/State/Zipcode | Phone Number | | Organization | | | | + +---------+ + + | [facility] | | | | | [facility] | | | | + +---------+ + + documented in this encounter Visit Diagnoses + + | Diagnosis | + + | Upper respiratory tract infection, unspecified type - Primary | + + | Abdominal discomfort Abdominal pain, unspecified site | + + documented in this encounter
--- OUTSIDE RECORDS SUMMARY | ~2019-02-17 | XMS | Encounter Summary ---
Demographics + + + | Address | [address] | | | [place] [address] | + + + | Home Phone [...] Providers + +------+ + | Care Supervisor Cutting Department Name | Role | Phone | + [...] Medication Refill | | 2018 | | [facility] | DO [address] | | | | | [facility]ICAL [facility] [address] | [facility] [place] | | | | | [address] [place], | [address] | | | | | [place] [address] | [phone] | | | | | [phone] | | | +--------+ + + + [...] [place] | | | | | | [address] | | | | | | [phone] | | | | | | | | +--------+---------+ + + + | 02/26/ | Office | Urology | Lillie Fowler | | | 2018 | Visit | | [address] | | | | | | [address] | | | | | | [place], [place] | | | | | | [address] | | | | | | [phone] | | | | | | | | +--------+---------+ + + + | 03/16/ | Office | Neurology | Theresa, | | | 2018 | Visit | | [address] | | | | | | [address] [place], | | | | | | [place] [address] | | | | | | [phone] | | | | | | | | +--------+---------+ + + + | 04/12/ | Office | Primary Care | Massimo Ramos Pedro Luis | | | 2019 | Visit | | MD Fer [address] | | | | | | [place] | | | | | | [address] | | | | | | | | +--------+---------+ + + + | 10/03/ | Office | Neurology | Fabián Carias MD | | | 2019 | Visit | | [address] | | | | | | [place] | | | | | | [address] | | | | | | | [...] | | | care | | | Geological Technician-C | | | | | | [...] | | | care | | | Geological Technician-C | | | | | | [...] | | | care | | | Geological Technician-C | | | | | | [...] | | | care | | | Geological Technician-C | | | | | | [...]
--- OUTSIDE RECORDS SUMMARY | ~2019-02-17 | XMS | Encounter Summary ---
Demographics + + + | Address | [address] | | | [place] [address] | + + + | Home Phone [...] Providers + +------+ + | Care Mechanic Recovery Name | Role | Phone | + [...] | CENTER [address] | [address] | | | | | [address] [place], [place] | [place] [address] | | | | | [address] | [phone] | | | | | [phone] | | | +--------+ + + + [...] Rao | | | | | | [address] | | | | | | [place] | | | | | | [address] | | | | | | [phone] | | | | | | | | +--------+---------+ + + + | 02/26/ | Office | Urology | Lillie Fowler | | | 2018 | Visit | | [address] | | | | | | [address] | | | | | | [place] | | | | | | [address] | | | | | | [phone] | | | | | | | | +--------+---------+ + + + | 03/16/ | Office | Neurology | Theresa, | | | 2018 | Visit | | [address] | | | | | | [address] [place], | | | | | | [place] [address] | | | | | | [phone] | | | | | | | | +--------+---------+ + + + | 04/12/ | Office | Primary Care | Massimo Ramos | | | 2019 | Visit | | MD Fer [address] | | | | | | [place] | | | | | | [address] | | | | | | | | +--------+---------+ + + + | 10/03/ | Office | Neurology | Fabián Carias MD | | | 2019 | Visit | | [address] | | | | | | [place] | | | | | | [address] | | | | | | | [...] | | | care | | | Weather Stripper-C | | | | | | [...] | | | care | | | Weather Stripper-C | | | | | | [...] | | | care | | | Weather Stripper-C | | | | | | [...] | | | care | | | Weather Stripper-C | | | | | | | linical | + +--------+ +---+-----+ + + + | Note: Pt will | | check CBG's daily x1 | | Pt will take Lantis as | | prescribed | + + documented as of this encounter Visit Diagnoses Not on filedocumented in this encounter"
--- OUTSIDE RECORDS SUMMARY | ~2019-02-17 | XMS | Encounter Summary ---
Demographics + + + | Address | [address] | | | [place] [address] | + + + | Home Phone [...] Providers + +------+ + | Care Assistant City Attorney Name | Role | Phone | + +------+ + | Ryan Gutiérrez MD | PCP | | + +------+ + Encounter Details +--------+ + + + + | Date | Type | Department | Care Team | Description | +--------+ + + + + | 01/31/ | [facility] | Horacio Silvestre, | | | 2016 | Encounter | [facility]ITAL [facility] | DO [address] | | | | | [address] | [place], [place] | | | | | [place], [place] | [address] | | | | | [address] | [phone] | | | | | [phone] | | | +--------+ + + + [...] [place] | | | | | | [address] | | | | | | [phone] | | | | | | | | +--------+---------+ + + + | 02/26/ | Office | Urology | Lillie Fowler | | | 2018 | Visit | | [address] | | | | | | [address] | | | | | | [place] | | | | | | [address] | | | | | | [phone] | | | | | | | | +--------+---------+ + + + | 03/16/ | Office | Neurology | Theresa, | | | 2018 | Visit | | [address] | | | | | | [address] [place], | | | | | | [place] [address] | | | | | | [phone] | | | | | | | | +--------+---------+ + + + | 04/12/ | Office | Primary Care | Massimo Ramos | | | 2019 | Visit | | MD [address] | | | | | | [place] | | | | | | [address] | | | | | | | | +--------+---------+ + + + | 10/03/ | Office | Neurology | Fabián Carias MD | | | 2019 | Visit | | [address] | | | | | | [place] | | | | | | [address] | | | | | | | [...] | | | care | | | Derivatives Trader-C | | | | | | | [...] | | | care | | | Derivatives Trader-C | | | | | | | [...] | | | care | | | Derivatives Trader-C | | | | | | | [...] | | | care | | | Derivatives Trader-C | | | | | | | [...]
--- OUTSIDE RECORDS SUMMARY | ~2019-02-17 | XMS | Encounter Summary ---
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 | + + + Encounter Details +--------+ + + + + | Date | Type | Department | Care Team | Description | +--------+ + + + + | 05/06/ | Telephone | [facility] | Horacio Silvestre, | Referral (Follow up) | | 2018 | | [facility] | [facility] [address] | (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) | | | | [facility]ICAL [facility] [address] | [facility] [place] | | | | | [address] [facility], | [address] | | | | | [place] [address] | [phone] | | | | | [phone] | | | +--------+ + + + [...] [place] | | | | | | [address] | | | | | | [phone] | | | | | | | | +--------+---------+ + + + | 02/26/ | Office | Urology | Lillie Fowler | | | 2018 | Visit | | [address] | | | | | | [address] | | | | | | [place], [place] | | | | | | [address] | | | | | | [phone] | | | | | | | | +--------+---------+ + + + | 03/16/ | Office | Neurology | Theresa, | | | 2018 | Visit | | [address] | | | | | | [address] [place], | | | | | | [place] [address] | | | | | | [phone] | | | | | | | | +--------+---------+ + + + | 04/12/ | Office | Primary Care | Massimo Ramos | | | 2019 | Visit | | MD [address] | | | | | | [place] | | | | | | [address] | | | | | | | | +--------+---------+ + + + | 10/03/ | Office | Neurology | Fabián Carias MD | | | 2019 | Visit | | [address] | | | | | | [place] | | | | | | [address] | | | | | | | [...] | | | care | | | Processes Chemical Design Engineer-C | | | | | | [...] | | | care | | | Processes Chemical Design Engineer-C | | | | | | [...] | | | care | | | Processes Chemical Design Engineer-C | | | | | | [...] | | | care | | | Processes Chemical Design Engineer-C | | | | | | | linical | + +--------+ +---+-----+ + + + | Note: Pt will | | check CBG's daily x1 | | Pt will take Lantis as | | prescribed | + + documented as of this encounter Visit Diagnoses Not on filedocumented in this encounter"
--- OUTSIDE RECORDS SUMMARY | ~2019-02-17 | XMS | Encounter Summary ---
Demographics + + + | Address | [address] | | | [place] [address] | + + + | Home Phone [...] Team Providers + +------+ + | Care Hr Consultant Name | Role | Phone | [...] disorder due | BLDG 69 RM | [address] Phone: | | | | | to known | [address] [place] | [phone] | | | | | physiologica | [place], [place] | Fax: | | | | | l condition | [address] | [phone] | | | | | Unspecified | Phone: | | | | | | | [phone] | | | | | | abnormalitie | Fax: | | | | | | s of gait | [phone] | | | | | | and [...] unspecified back | | | | [place] [address] | | pain laterality | | | | [phone] | | (Primary Dx); Sprain | | | | | | of ligaments of | | | | | | lumbar spine, | | | | | | sequela ; | | | | | | Uncontrolled type 2 | | | | | | diabetes mellitus | | | | | | with hyperglycemia | | | | | | ([facility]) | +--------+---------+ + + + [...] be different from the original. Patient Instructions [facility] Neurology Clinic Dr. Jalyn Carias, Neurologist Date:11/23/2018 [...] le, and scrabble, other puzzle games like [employer], [employer]. Play computer/mobile applications such as Nibu Trigger point injection 2018, @ 11:15 Use a cane for ambulation ASA 325 and Atorvastain 40 mg daily for stroke prophyloaxis Control diabetes Any Questions please call JAMAAL Marroquin or Dr. Carias at [facility] Neurology Clinic General Neck and Back [...] are taking other medicines. You may use iplw-vvj-umwooar medicine to control pain, unless another pain [...] by your healthcare provider Date Last Reviewed: 10/06/201519990628-8104 [employer]. [address] [place] [address], [place] [address]. All righ ts reserved. This information is [...] teens without first discussing it with your [facility]'s healthcare provider. Ice Ice reduces muscle [...] use ice several times a day. Medicines Dwel-btl-bpugech pain relieversincludeacetaminophen and anti-inflammatory medicines, wh ich [...] a heating p ad. Date Last Reviewed: 09/05/201719998867-3018 [employer]. [address] [place] [address]. All righ ts reserved. This information is [...] of Nutrition and Dietetics www.eatright.org ? The [place] [employer] [phone] www.diabetes.org Date Last Reviewed: 11/06/201519990490-[address] [employer] [place] [address]. All righ ts reserved. This information is [...] for lean, lower-fat choices. Date Last Reviewed: 06/06/201519996191-[address] [employer] [place] [address]. All righ ts reserved. This information is not intended as a substitute for professional medical care. Always follow your healthcare professional's instructions. documented in this encounter Progress Notes Jalyn Carias MD - 11/23/2018 11:00 AM PDT Patient: Geraldo Mcfadden Medical Record: [id number] Date of Services: 11/23/2018 Referring Doctor: Horacio Silvestre DO Chief Complaint: Status post CVA History of Present Illness: Mr. Mcfadden was a 78-year-old right-handed male, seen for neurologic evaluation, recently disc harged in [facility] for status post CVA on November 04, [...] PT/OT through [facility]. He presently tablets with a cane. [...] as acupuncture treatments, massage therapy, relaxation therapy, kung-fix-qrxyamn creams a nd patches, CBD, and cortisone [...] oriented to time, place, and person. [facility] flu[facility]. Memory, attention, comprehension, [...] CEREBELLAR EXAMINATION: There is no dysmetria on ilkdhs-sb-vuee test. MISCELLANEOUS EXAM: Well Kept, well nourished, [...] le, and scrabble, other puzzle games like [employer], [employer]. Play computer/mobile applications such as [employer] and [employer] Trigger point injection 2018, @ 11:15 Use a cane for ambulation ASA 325 and Atorvastain 40 mg daily for stroke prophyloaxis Control diabetes Advised to take vitamin E and B complexes. In event that his cognitive functions worsens, discussed the possibility of cholinesterase inhibitors such as Aricept, etc. Any Questions please call JAMAAL Marroquin or Dr. Carias at [facility] Neurology Clinic Jalyn Carias MD11/23/201811:05 Electronically signed NOTE: Part of this report was transcribed using voice recognition software. Every effort was made to ensure accuracy. However, inadvertent computerize dress shoe inspector errors may be present documented in this [...] [place] | | | | | | [address] | | | | | | [phone] | | | | | | | | +--------+---------+ + + + | 02/26/ | Office | Urology | Lillie Fowler | | | 2018 | Visit | | LILLIE Lopez [address] | | | | | | [address] | | | | | | [place] | | | | | | [address] | | | | | | [phone] | | | | | | | | +--------+---------+ + + + | 03/16/ | Office | Neurology | Theresa, | | | 2018 | Visit | | [address] | | | | | | [address] [place], | | | | | | [place] [address] | | | | | | [phone] | | | | | | | | +--------+---------+ + + + | 04/12/ | Office | Primary Care | Massimo Ramos | | | 2019 | Visit | | MD Fer [address] | | | | | | [place] | | | | | | [address] | | | | | | | | +--------+---------+ + + + | 10/03/ | Office | Neurology | Jalyn Carias MD | | | 2019 | Visit | | [address] | | | | | | [place] | | | | | | [address] | | | | | | | [...] | | | care | | | Scrum Master-C | | | | | | [...] | | | care | | | Scrum Master-C | | | | | | [...] | | | care | | | Scrum Master-C | | | | | | [...] | | | care | | | Scrum Master-C | | | | | | [...] JALYN CARIAS M.D. | | | Neurologist [phone] Electronically signed NOTE: Part of | | | this report was transcribed using voice recognition | | | software. Every effort was made to ensure | | | accuracy. However, inadvertent computerize | | | dress shoe inspector errors may be present | | + [...]
--- OUTSIDE RECORDS SUMMARY | ~2019-02-17 | XMS | Encounter Summary ---
Demographics + + + | Address | [address] | | | [place] [address] | + + + | Home Phone [...] Providers + +------+ + | Care Pulp Mill Supervisor Name | Role | Phone | + +------+ + | Horacio Silvestre DO | PCP | | + +------+ + Reason for Visit + + + | Reason | Comments | + + + | Pre-op Exam | Colonoscopy | + + + Encounter Details +--------+---------+ + + + | Date | Type | Department | Care Team | Description | +--------+---------+ + + + | 11/10/ | Office | [facility] | Scott De Oliveira | Encounter for | | 2019 | Visit | [facility] | [address] | screening | | | | SURGERY [address] | [address] | colonoscopy (Primary | | | | DR [address] [place], | [facility], [place] | Dx) | | | | [place] [address] | [address] | | | | | [phone] | [phone] | | | | | | | [...] + | Blood Pressure | 142/82 | 11/10/2018 11:02 AM | | | | | PDT | | + + + + + | Pulse | 89 | 11/10/2018 11:02 AM | | | | | PDT | | + + + + + | Temperature | - | - | | + + + + + | Respiratory Rate | 16 | 11/10/2018 11:02 AM | | | | | PDT | | + + + + + | Oxygen Saturation | 91% | 11/10/2018 11:02 AM | | | | | PDT | | + + + + + | Inhaled Oxygen | - | - | | | Concentration | | | | + + + + + | Weight | 90.7 kg (200 lb) | 11/10/2018 11:02 AM | | | | | PDT | | + + + + + | Height | - | - | | + + + + + | Body Mass Index | 32.28 | 11/02/2018 12:37 PM | | | [...] [place] | | | | | | [address] | | | | | | [phone] | | | | | | | | +--------+---------+ + + + | 02/26/ | Office | Urology | Lillie Fowler | | | 2018 | Visit | | [address]ILLIE Lopez [address] | | | | | | [address] | | | | | | [place], [place] | | | | | | [address] | | | | | | [phone] | | | | | | | | +--------+---------+ + + + | 03/16/ | Office | Neurology | Theresa, | | | 2018 | Visit | | [address] | | | | | [address] [place], | | | | | | [place] [address] | | | | | | [phone] | | | | | | | | +--------+---------+ + + + | 04/12/ | Office | Primary Care | Massimo Ramos | | | 2019 | Visit | | MD Fer [address] | | | | | | [place] | | | | | | [address] | | | | | | | | +--------+---------+ + + + | 10/03/ | Office | Neurology | Fabián Carias MD | | | 2019 | Visit | | [address] | | | | | | [place] | | | | | | [address] | | | | | | | [...] | | care | | | Ground Hand-C | | | | | | [...] | | care | | | Ground Hand-C | | | | | | [...] | | care | | | Ground Hand-C | | | | | | [...] | | care | | | Ground Hand-C | | | | | | | linical | + +--------+ +---+-----+ + + + | Note: Pt will | | check CBG's daily x1 | | Pt will take Lantis as | | prescribed | + + documented as of this encounter Visit Diagnoses + + | Diagnosis | + + | Encounter for screening colonoscopy - Primary Special screening for malignant | | neoplasms, colon | + + documented in this encounter Additional Health Concerns + + + + | Infection | Noted Time | Resolved Time | + + + + | Methicillin-resistant Staphylococcus aureus | 07/20/2018 4:00 PM | | | | PDT | | + + + + documented as of this encounter"
--- OUTSIDE RECORDS SUMMARY | ~2019-02-17 | XMS | Encounter Summary ---
Demographics + + + | Address | [address] | | | [place] [address] | + + + | Home Phone [...] Providers + +------+ + | Care Mobile Pet Groomer Name | Role | Phone | + [...] | | unspecified | [place], [place] | [address] Phone: | | | | | back pain | [address] | [phone] | | | | | laterality | Phone: | Fax: | | | | | Other | [phone] | [phone] | | | | | amnesia | Fax: | | | | | | Procedures | [phone] | | | | | | MI INJECT | | | | | | [...] unspecified back | | | | [place] [address] | | pain laterality | | | | [phone] | | (Primary Dx); Sprain | | [...] [place] | | | | | | [address] | | | | | | [phone] | | | | | | | | +--------+---------+ + + + | 02/26/ | Office | Urology | Lillie Fowler | | | 2018 | Visit | | [address]IE Lopez [address] | | | | | | [address] | | | | | | [place] | | | | | | [address] | | | | | | [phone] | | | | | | | | +--------+---------+ + + + | 03/16/ | Office | Neurology | Theresa, | | | 2018 | Visit | | [address] | | | | | [address] [place], | | | | | | [place] [address] | | | | | | [phone] | | | | | | | | +--------+---------+ + + + | 04/12/ | Office | Primary Care | Massimo Ramos | | | 2019 | Visit | | MD Fer [address] | | | | | | [place] | | | | | | [address] | | | | | | | | +--------+---------+ + + + | 10/03/ | Office | Neurology | Fabián Carias MD | | | 2019 | Visit | | [address] | | | | | | [place] | | | | | | [address] | | | | | | | [...] | | | care | | | Antisqueak Filler-C | | | | | | | [...] | | | care | | | Antisqueak Filler-C | | | | | | | [...] | | | care | | | Antisqueak Filler-C | | | | | | | [...] | | | care | | | Antisqueak Filler-C | | | | | | | [...] | + +--------+ + + + | MI INJECT TRIGGER | Routin | 02/19/2018 | [...] | | | | | Other, ONCE, [facility] 02/19/18 at | | AM PST [...] | | | uteal-Ri | | ONCE, [facility] 02/19/18 at 1015, For 1 | [...]
--- OUTSIDE RECORDS SUMMARY | ~2019-02-17 | XMS | Encounter Summary ---
Demographics + + + | Address | [address] | | | [place] [address] | + + + | Home Phone | | + + + | Preferred Language | Unknown | + + + | Marital Status | | + + + | Alevism Affiliation | 1025 | + + + | Race | Unknown | + + + | Ethnic Group | Unknown | + + + Author + + + | Author | [facility] | | | and [place] | + + + | Organization | [facility] | | | and [...] Providers + +------+ + | Care Group Burner Machine Name | Role | Phone | [...] | DO [address] [place] | (FYI) | | | | [facility] [address] | [facility], [place] | | | | | [address] [place], | [address] | | | | | [place] [address] | [phone] | | | | | [phone] | | | +--------+ + + + [...] [place] | | | | | | [address] | | | | | | [phone] | | | | | | | | +--------+---------+ + + + | 02/26/ | Office | Urology | Lillie Fowler | | | 2018 | Visit | | LILLIE Lopez [address] | | | | | | [address] | | | | | | [place], [place] | | | | | | [address] | | | | | | [phone] | | | | | | | | +--------+---------+ + + + | 03/16/ | Office | Neurology | Theresa, | | | 2018 | Visit | | [address] | | | | | | [address] [place], | | | | | | [place] [address] | | | | | | [phone] | | | | | | | | +--------+---------+ + + + | 04/12/ | Office | Primary Care | Massimo Ramos Pedro Luis | | | 2019 | Visit | | MD Fer [address] | | | | | | [place] | | | | | | [address] | | | | | | | | +--------+---------+ + + + | 10/03/ | Office | Neurology | Fabián Carias MD | | | 2019 | Visit | | [address] | | | | | | [place] | | | | | | [address] | | | | | | | [...] | | | care | | | Jeeper Operator-C | | | | | | [...] | | | care | | | Jeeper Operator-C | | | | | | [...] | | | care | | | Jeeper Operator-C | | | | | | [...] | | | care | | | Jeeper Operator-C | | | | | | [...]
--- OUTSIDE RECORDS SUMMARY | ~2019-02-17 | XMS | Encounter Summary ---
Demographics + + + | Address | [address] | | | [place] [address] | + + + | Home Phone [...] Providers + +------+ + | Care Machine Bander And Cellophaner Name | Role | Phone | + [...] Medication Question | | 2019 | | [facility] | [address] [place] | | | | | MEDICAL [facility] [address] | [facility], [place] | | | | | [address] [place], | [address] | | | | | [place] [address] | [phone] | | | | | [phone] | | | +--------+ + + + [...] [place] | | | | | | [address] | | | | | | [phone] | | | | | | | | +--------+---------+ + + + | 02/26/ | Office | Urology | Lillie Fowler | | | 2018 | Visit | | [address]ILLIE Lopez [address] | | | | | | [address] | | | | | | [place], [place] | | | | | | [address] | | | | | | [phone] | | | | | | | | +--------+---------+ + + + | 03/16/ | Office | Neurology | Theresa, | | | 2018 | Visit | | [address] | | | | | | [address] [place], | | | | | | [place] [address] | | | | | | [phone] | | | | | | | | +--------+---------+ + + + | 04/12/ | Office | Primary Care | Massimo Ramos Pedro Luis | | | 2019 | Visit | | MD Fer [address] | | | | | | [place] | | | | | | [address] | | | | | | | | +--------+---------+ + + + | 10/03/ | Office | Neurology | Fabián Carias MD | | | 2019 | Visit | | [address] | | | | | | [place] | | | | | | [address] | | | | | | | [...] | | | care | | | Card Decorator-C | | | | | | | [...] | | | care | | | Card Decorator-C | | | | | | | [...] | | | care | | | Card Decorator-C | | | | | | | [...] | | | care | | | Card Decorator-C | | | | | | | [...]
--- OUTSIDE RECORDS SUMMARY | ~2019-02-17 | XMS | Encounter Summary ---
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 | | | | | | 2 diabetes mellitus | | | | | | ([facility]) | +--------+ + + + + [...] [place] | | | | | | [address] | | | | | | [phone] | | | | | | | | +--------+---------+ + + + | 02/26/ | Office | Urology | Lillie Fowler | | | 2018 | Visit | | LILLIE Lopez [address] | | | | | | [address] | | | | | | [place], [place] | | | | | | [address] | | | | | | [phone] | | | | | | | | +--------+---------+ + + + | 03/16/ | Office | Neurology | Theresa, | | | 2018 | Visit | | [address] | | | | | | [address] [place], | | | | | | [place] [address] | | | | | | [phone] | | | | | | | | +--------+---------+ + + + | 04/12/ | Office | Primary Care | Massimo Ramos | | | 2019 | Visit | | MD Fer [address] | | | | | | [place] | | | | | | [address] | | | | | | | | +--------+---------+ + + + | 10/03/ | Office | Neurology | Fabián Carias MD | | | 2019 | Visit | | [address] | | | | | | [place] | | | | | | [address] | | | | | | | [...] | | | care | | | Recruiting Associate-C | | | | | | [...] | | | care | | | Recruiting Associate-C | | | | | | [...] | | | care | | | Recruiting Associate-C | | | | | | [...] | | | care | | | Recruiting Associate-C | | | | | | [...] mellitus | | | | | | ([facility]) | | + +--------+ + + [...]
--- OUTSIDE RECORDS SUMMARY | ~2019-02-17 | XMS | Encounter Summary ---
Demographics + + + | Address | [address] | | | [place] [address] | + + + | Home Phone [...] Team Providers + +------+ + | Care Building Maintenance Superintendent Name | Role | Phone | [...] diabetes | MD Fer | [address] | | | | | mellitus | [address] | [address] | | | | | with other | [address] | [place] | | | | | specified | [place] | [address] | | | | | complication | [address] | Phone: | | | | | , without | Phone: | [phone] | | | | | long-term | [phone] | | | | | | current use | Fax: | | | | | | of insulin | [phone] | | | | | | ([facility]) | | | + + + + [...] | Diagnoses | Richard | [facility] | | Review | Services | | [...] [place] | | | | | | [address] | [address] | | | | | | Phone: | Phone: | | | | | | [phone] | [phone] | | | | | | Fax: | Fax: | | | | | | [phone] | [phone] | + + + + + + [...] | | 2019 | Visit | [facility] | MD Fer [address] | mellitus with other | | | | MEDICAL [facility] [address] | [address] [place], [place] | specified | | | | [address] [place], | [address] | complication, | | | | [place] [address] | | without long-term | | | | [phone] | | current use of | | [...] of melanoma - refer to Derm R samaritan lesion, doubt TA, check ESR Low TSH [...] fasting today He c/o painful lesion R samaritan, occurs with rubbing, x 6 mo; neg pain today Review of Systems Having memory problems Denies cp, sob, n/v/d, fever, chills, sweating, depression, anxiety, bleeding, dizziness, s yncope, palpitations, edema + easy bruising Thinks he's off the plavix but did not bring bottles, had planned to bring them Hx of melanoma Has had "singleton" lesion, R samaritan x 7 mo Lives with grandson, has [...] - Wm, dry; + hyperpigmented macule, R samaritan, neg tenderness HEENT - AYLIN, EOMI, sclera anicteric, oropharynx non erythematous Neck - Supple, neg JVD Cor - RRR, nl S1 and S2, neg m Lung - Clear Abd - Soft, obese, non tender, non distended Neg cva tenderness M/S - Neg R samaritan scalp tenderness Neg spinal tenderness Ext - [...] [place] | | | | | | [address] | | | | | | [phone] | | | | | | | | +--------+---------+ + + + | 02/26/ | Office | Urology | Lillie Fowler | | | 2018 | Visit | | LILLIE Lopez [address] | | | | | | [address] | | | | | | [place], [place] | | | | | | [address] | | | | | | [phone] | | | | | | | | +--------+---------+ + + + | 03/16/ | Office | Neurology | Theresa, | | | 2018 | Visit | | [address] | | | | | | [address] [place], | | | | | | [place] [address] | | | | | | [phone] | | | | | | | | +--------+---------+ + + + | 04/12/ | Office | Primary Care | Massimo Ramos | | | 2019 | Visit | | MD Fer [address] | | | | | | [place] | | | | | | [address] | | | | | | | [...] | | | care | | | Paper Stripper-C | | | | | | [...] | | | care | | | Paper Stripper-C | | | | | | [...] | | | care | | | Paper Stripper-C | | | | | | [...] | | | care | | | Paper Stripper-C | | | | | | [...]
--- OUTSIDE RECORDS SUMMARY | ~2019-02-17 | XMS | Encounter Summary ---
Demographics + + + | Address | [address] | | | [place] [address] | + + + | Home Phone [...] Team Providers + +------+ + | Care Name Plate Stamping 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 Name | Role | Phone [...] | | | [address] [place], | [facility], [place] | | | | | [place] [address] | [address] | | | | | [phone] | [phone] | | | | | | | [...] [place] | | | | | | [address] | | | | | | [phone] | | | | | | | | +--------+---------+ + + + | 02/26/ | Office | Urology | Lillie Fowler | | | 2018 | Visit | | LILLIE Lopez [address] | | | | | | [address] | | | | | | [place] | | | | | | [address] | | | | | | [phone] | | | | | | | | +--------+---------+ + + + | 03/16/ | Office | Neurology | Theresa, | | | 2018 | Visit | | [address] | | | | | [address] [place], | | | | | | [place] [address] | | | | | | [phone] | | | | | | | | +--------+---------+ + + + | 04/12/ | Office | Primary Care | Massimo Ramos | | | 2019 | Visit | | MD Fer [address] | | | | | | [place] | | | | | | [address] | | | | | | | | +--------+---------+ + + + | 10/03/ | Office | Neurology | Fabián Carias MD | | | 2019 | Visit | | [address] | | | | | | [place] | | | | | | [address] | | | | | | | [...] | | care | | | Patient Svcs Mgr-C | | | | | | | [...] | | care | | | Patient Svcs Mgr-C | | | | | | | [...] | | care | | | Patient Svcs Mgr-C | | | | | | | [...] | | care | | | Patient Svcs Mgr-C | | | | | | | linical | + +--------+ +---+-----+ + + + | Note: Pt will | | check CBG's daily x1 | | Pt will take Lantis as | | prescribed | + + documented as of this encounter Visit Diagnoses Not on filedocumented in this encounter"
--- OUTSIDE RECORDS SUMMARY | ~2019-02-17 | XMS | Encounter Summary ---
Demographics + + + | Address | [address] | | | [place] [address] | + + + | Home Phone [...] Team Providers + +------+ + | Care Junior Data Analyst Name | Role | Phone [...] + | 11/10/ | Office | [facility] [facility] | Scott De Olvieira | Encounter for | | 2019 | Visit | [facility] | [address] | screening | | | | SURGERY [address] | [address] | colonoscopy (Primary | | | | [address] [place], | [facility], [place] | Dx) | | | | [place] [address] | [address] | | | | | [phone] | [phone] | | | | | | | [...] [place] | | | | | | [address] | | | | | | [phone] | | | | | | | | +--------+---------+ + + + | 02/26/ | Office | Urology | Lillie Fowler | | | 2018 | Visit | | LILLIE Lopez [address] | | | | | | [address] | | | | | | [place], [place] | | | | | | [address] | | | | | | [phone] | | | | | | | | +--------+---------+ + + + | 03/16/ | Office | Neurology | Theresa, | | | 2018 | Visit | | [address] | | | | | | [address] [place], | | | | | | [place] [address] | | | | | | [phone] | | | | | | | | +--------+---------+ + + + | 04/12/ | Office | Primary Care | Massimo Ramos | | | 2019 | Visit | | MD Fer [address] | | | | | | [place] | | | | | | [address] | | | | | | | | +--------+---------+ + + + | 10/03/ | Office | Neurology | Fabián Carias MD | | | 2019 | Visit | | [address] | | | | | | [place] | | | | | | [address] | | | | | | | [...] | | care | | | Director Enterprise Sales-C | | | | | | [...] | | care | | | Director Enterprise Sales-C | | | | | | [...] | | care | | | Director Enterprise Sales-C | | | | | | [...] | | care | | | Director Enterprise Sales-C | | | | | | [...]
--- OUTSIDE RECORDS SUMMARY | ~2019-02-17 | XMS | Encounter Summary ---
Demographics + + + | Address | [address] | | | [place] [address] | + + + | Home Phone [...] Providers + +------+ + | Care Rn Medical Inpatient Services Name | Role | Phone | [...] | | [place], [place] | [place] [address] | Hypothyroidism, | | 2018 | | [address] | [phone] | unspecified type; | | | | [phone] | | Hypotension, | | | | | Pratt, Kasey L, TEST RIDER | unspecified | | | | | [address] | hypotension type; | | | | | [place] [address] | Acute respiratory | | | | | [phone] | failure with hypoxia | | | | | | (HCC); Generalized | | | | | Faizan Wesley, | weakness | | | | | MD [address] | | | | | | [place] [address] | | | | | | [phone] | | | | | | | [...] nonseasonal allergic rhinitis due to pollen 03/07/2017 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 His levothyroxine was increased from 175 g daily to 200 g daily. A prescriptio n for 5 days [facility] Pending inpatient studies at time of discharge: None Disposition: Home Follow-Up Plans: Horacio Silvestre DO [address] [place] [address] [place] [address] In 2 weeks Hospital follow up Physical [...] Procedure Component Value Units Date/Time Culture, Blood [[id number]] Order Status: Canceled Lab Status: No result Specimen: Blood from Peripheral Blood Culture, Blood [[id number]] Order Status: Canceled Lab Status: No result Specimen: Blood from Peripheral Blood Time spent discharging this patient: 30 min CHANTEL Hillman 03/17/2018Electronically signed by Rupinder Padgett MD at 8 7:55 AM PSTdocumented in this encounter Discharge Instructions AttachmentsThe following attachments cannot be sent through Care Everywhere.Adult, Pneumoni a (Malian)Hypothyroidism ([place])documented in this encounter Medications at Time of [...] | | | | | | disease, oysterman | | | | | | | [...] fairly good historian -medication list faxed from [place] in [place] Major discrepancies noted: Patient takes three 10mg oxycodone IR every morning instead of t he prescribed TID dosing. Insulin aspart (Novalog) is dosed per modified sliding scale Please see BAND INSTRUMENT REPAIRER med list for updated medication list. Electronically [...] [place] | | | | | | [address] | | | | | | [phone] | | | | | | | | +--------+---------+ + + + | 02/26/ | Office | Urology | Lillie Fowler | | | 2018 | Visit | | LILLIE Lopez [address] | | | | | | [address] | | | | | | [place], [place] | | | | | | [address] | | | | | | [phone] | | | | | | | | +--------+---------+ + + + | 03/16/ | Office | Neurology | Theresa, | | | 2018 | Visit | | [address] | | | | | | [address] [place], | | | | | | [place] [address] | | | | | | [phone] | | | | | | | | +--------+---------+ + + + | 04/12/ | Office | Primary Care | Massimo Ramos | | | 2019 | Visit | | MD Fer [address] | | | | | | [place] | | | | | | [address] | | | | | | | | +--------+---------+ + + + | 10/03/ | Office | Neurology | Fabián Carias MD | | | 2019 | Visit | | [address] | | | | | | [place] | | | | | | [address] | | | | | | | [...] | | care | | | Site Surveyor-C | | | | | | | [...] | | care | | | Site Surveyor-C | | | | | | | [...] | | care | | | Site Surveyor-C | | | | | | | [...] | | care | | | Site Surveyor-C | | | | | | | [...] J?MRN: | | | | | | [id number] | | | [id number] | | | ecurit | | | [...] | | | Guidel | | | coide | | | in | | | [...] | | | [place] | | | Oncology Rep Specialist | | | al | | [...] + + | [place] [facility] | [address] | [place] [address] | [phone] | | [facility] | | | [...] + + | [place] [facility] | [address] | [place] [address] | [phone] | | H[facility]PITAL [facility] | | | [...] + + | [place] [facility] | [address] | [place] [address] | [phone] | | H[facility]PITAL [facility] | | | [...] + + | [place] [facility] | [address] | [place] [address] | [phone] | | H[facility]PITAL [facility] | | | [...] | [facility] | | | [...] + + | [place] [facility] | [address] | [place] [address] | [phone] | | HOSPITAL [facility] | | | [...] + + | [place] [facility] | [address] | [place] [address] | [phone] | | HOSPITAL [facility] | | | [...] + + | [place] [facility] | [address] | [place] [address] | [phone] | | H[facility]PITAL [facility] | | | [...] - 1.030 | [place] | | | [place] | | | [facility] | | | [...] + + | [place] [facility] | [address] | [place] [address] | [phone] | | H[facility]PITAL [facility] | | | [...] + + | [place] [facility] | [address] | [place] [address] | [phone] | | HOSPITAL [facility] | | | [...] + + | [place] [facility] | [address] | [place] [address] | [phone] | | HOSPITAL [facility] | | | [...] + + | [place] [facility] | [address] | [place] [address] | [phone] | | HOSPITAL [facility] | | | [...] + + | [place] [facility] | [address] | [place] [address] | [phone] | | HOSPITAL [facility] | | | [...] + + | [place] [facility] | [address] | [place] [address] | [phone] | | HOSPITAL [facility] | | | [...] + + | [place] [facility] | [address] | [place] [address] | [phone] | | HOSPITAL [facility] | | | [...] + + | [place] [facility] | [address] | [place] [address] | [phone] | | HOSPITAL [facility]ORY | | | [...] | | HOSPITAL | | | | mL/min/1.54v8Yoxv than | | LABORATORY | | | [...] + + | [place] [facility] | [address] | [place] [address] | [phone] | | HOSPITAL LAB[facility]ORY | | | [...] + + | [place] [facility] | [address] | [place] [address] | [phone] | | HOSPITAL LAB[facility]ORY | | | | + + + + + ECG 12 lead (03/16/2018 8:50 AM PST) + + | Specimen | + + | | + + + + + | Narrative | Performed At | + + + | Heart Rate: 73 | [facility] | | bpmQRS Interval: 84 msQT Interval: 400 msQTC Interval: 441 msP [place]: | TRACEMASTER | | -6 degQRS [place]: -22 degT Wave [place]: 8 degP-R Interval: 168 msec- | | | OTHERWISE NORMAL ECG -SINUS RHYTHM [Remains]SIGNIFICANT ECG CONTOUR | | | CHANGES | | |QRS [place]: -22 deg | | |T Wave [place]: 8 deg | | |P-R Interval: 168 [...] | | | | AC, NPO, Daytime 2794-0752 Use | | | | | | | NIGHT DOSE for doses scheduled: | | | | | | | HS, 3AM, Nighttime 7661-3349 | | | | | | | [...]
--- OUTSIDE RECORDS SUMMARY | ~2019-02-17 | XMS | Encounter Summary ---
Demographics + + + | Address | [address] | | | [place] [address] | + + + | Home Phone [...] Team Providers + +------+ + | Care Wire Bender Name | Role | Phone | + +------+ + | Ryan Gutiérrez MD | PCP | | + +------+ + Encounter Details +--------+ + + + + | Date | Type | Department | Care Team | Description | +--------+ + + + + | 01/15/ | Hospital | [facility] | Jessica Brandt, | | | 2017 | Encounter | HOSPITAL MED SURG | SUBMARINE WORKER [address] | | | | | [address] [place] | [address] [place], [place] | | | | | [place], [place] | [address] | | | | | [address] | | | | | | [phone] | Faizan Wesley | | | | | | MD Zari [address] | | | | | | [place], [place] | | | | | | [address] | | | | | | | [...] [place] | | | | | | [address] | | | | | | [phone] | | | | | | | | +--------+---------+ + + + | 02/26/ | Office | Urology | Lillie Fowler | | | 2018 | Visit | | [address]ILLIE Lopez [address] | | | | | | [address] | | | | | | [place], [place] | | | | | | [address] | | | | | | [phone] | | | | | | | | +--------+---------+ + + + | 03/16/ | Office | Neurology | Theresa, | | | 2018 | Visit | | [address] | | | | | | [address] [place], | | | | | | [place] [address] | | | | | | [phone] | | | | | | | | +--------+---------+ + + + | 04/12/ | Office | Primary Care | Massimo Ramos | | | 2019 | Visit | | MD Fer [address] | | | | | | [place] | | | | | | [address] | | | | | | | | +--------+---------+ + + + | 10/03/ | Office | Neurology | Fabián Carias MD | | | 2019 | Visit | | [address] | | | | | | [place] | | | | | | [address] | | | | | | | [...] | | care | | | Senior Hydrogeologist-C | | | | | | | [...] | | care | | | Senior Hydrogeologist-C | | | | | | | [...] | | care | | | Senior Hydrogeologist-C | | | | | | | [...] | | care | | | Senior Hydrogeologist-C | | | | | | | [...] + | POC GLUCOSE, | Routin | 01/16/2017 | | Results for this | | RAPIDPOINT | e | 11:17 AM | | procedure are in the | | | | PDT | | results section. | + +--------+ + + + | POC GLUCOSE, | Routin | 01/16/2017 | | Results for this | | RAPIDPOINT | e | 10:25 AM | | procedure are in the | | | | PDT | | results section. | + +--------+ + + + | POC GLUCOSE, | Routin | 01/16/2017 | | Results for this | | RAPIDPOINT | e | 7:28 AM | | procedure are in the | | | | PDT | | results section. | + +--------+ + + + | POC GLUCOSE, | Routin | 01/15/2017 | | Results for this | | RAPIDPOINT | e | 9:15 PM | | procedure are in the | | | | PDT | | results section. | + +--------+ + + + | CBC W/AUTO | Routin | 01/15/2017 | | Results for this | | DIFFERENTIAL | e | 5:00 AM | | procedure are in the | | | | PDT | | results section. | + +--------+ + + + | MAGNESIUM | Routin | 01/15/2017 | | Results for this | | | e | 5:00 AM | | procedure are in the | | | | PDT | | results section. | + +--------+ + + + | BASIC METABOLIC | Routin | 01/15/2017 | | Results for this | | PANEL | e | 5:00 AM | | procedure are in the | | | | PDT | | results section. | + +--------+ + + + documented in this encounter Results POC Glucose, Rapidpoint (01/16/2017 11:17 AM PDT) + +-------+ + + + [...] + +---------+ + + POC Glucose, Rapidpoint (01/16/2017 10:25 AM PDT) + +-------+ + + + | Component | Value | Ref Range | Performed | Pathologist | | | | | At | Signature | + +-------+ + + + | Glucose, | 182 | 70 - 110 mg/dL | EXTERNAL [...] + +---------+ + + POC Glucose, Rapidpoint (01/16/2017 7:28 AM PDT) + +-------+ + + + [...] + +---------+ + + POC Glucose, Rapidpoint (01/15/2017 9:15 PM PDT) + +-------+ + + + | Component | Value | Ref Range | Performed | Pathologist | | | | | At | Signature | + +-------+ + + + | Glucose, | 95 | 70 - 110 mg/dL | EXTERNAL [...] | | + +---------+ + + Magnesium (01/15/2017 5:00 AM PDT) + +-------+ + + [...] + + CBC w/ Auto Differential (01/15/2017 5:00 AM PDT) + +-------+ + + + | Component | Value | Ref Range | Performed | Pathologist | | | | | At | Signature | + +-------+ + + + | WBC | 11.1 | 4.6 - 10.5 | EXTERNAL | | | | | 1000/mm3 | LAB | | + +-------+ + + + | RBC | 4.53 | 4.36 - 5.83 | EXTERNAL | | | | | mil/mm3 | LAB | | + +-------+ + + + | HGB, | 13.4 | 13.1 - 17.4 | EXTERNAL | | | External | | g/dL | LAB | | + +-------+ + + + | HCT, | 40.3 | 39.0 - 51.9 % | EXTERNAL | | | External | | | LAB | | + +-------+ + + + | MCV | 89 | 82 - 96 fl | EXTERNAL | | | | | | LAB | | + +-------+ + + + | MCH | 29.6 | 27.7 - 32.3 pg | EXTERNAL | | | | | | LAB | | + +-------+ + + + | MCHC | 33.3 | 32.0 - 36.9 | EXTERNAL | | | | | g/dL | LAB | | + +-------+ + + + | RDW-CV | 15.6 | <=17.0 % | EXTERNAL | | | | | | LAB | | + +-------+ + + + | RDW-SD | 50.5 | 34.0 - 57.0 fL | EXTERNAL | | | | | | LAB | | + +-------+ + + + | Platelet | 148 | 150 - 450 | EXTERNAL | | | Count | | 1000/mm3 | LAB | | | Plasma | | | | | + +-------+ + + + | MPV | 12.6 | 9.4 - 12.4 FL | EXTERNAL | | | | | | LAB | | + +-------+ + + + | % Segmented | 73.5 | 42.0 - 76.0 % | EXTERNAL | | | | | | LAB | | | Neutrophils | | | | | + +-------+ + + + | % | 12.5 | 20.0 - 40.0 % | EXTERNAL | | | Lymphocytes | | | LAB | | + +-------+ + + + | % Monocytes | 11.2 | 3.0 - 13.0 % | EXTERNAL | | | | | | LAB | | + +-------+ + + + | % | 1.7 | 0.0 - 7.0 % | EXTERNAL | | | Eosinophils | | | LAB | | + +-------+ + + + | % Basophils | 0.5 | 0.0 - 2.0 % | EXTERNAL | | | | | | LAB | | + +-------+ + + + | % Immature | 0.6 | 0.0 - 0.5 % | EXTERNAL | | | Granulocyte | | | LAB | | | s | | | | | + +-------+ + + + | % nRBC | 0 | 0.0 - 0.2 /100 | EXTERNAL | | | | | WBC | LAB | | + +-------+ + + + | Absolute | 8.15 | 2.80 - 7.70 | EXTERNAL | | | Neutrophils | | 1000/mm3 | LAB | | + +-------+ + + + | Absolute | 1.38 | 1.20 - 3.30 | EXTERNAL | | | Lymphocytes | | 1000/mm3 | LAB | | + +-------+ + + + | Absolute | 1.24 | 0.00 - 0.80 | EXTERNAL | | | Monocytes | | 1000/mm3 | LAB | | + +-------+ + + + | Absolute | 0.19 | 0.00 - 0.70 | EXTERNAL | | | Eosinophils | | 1000/mm3 | LAB | | + +-------+ + + + | Absolute | 0.05 | 0.00 - 0.20 | EXTERNAL | | | Basophils | | 1000/mm3 | LAB | | + +-------+ + + + | Absolute | 0.07 | 0.00 - 0.15 | EXTERNAL | [...] +---------+ + + Basic Metabolic Panel (01/15/2017 5:00 AM PDT) + +-------+ + + [...] +-------+ + + + | Glucose | 117 | 70 - 110 mg/dL | EXTERNAL | | | | | | LAB | | + +-------+ + + + | BUN, Bld | 14 | 5 - 26 mg/dL | EXTERNAL | | | | | | LAB | | + +-------+ + + + | Creatinine | 1.03 | 0.70 - 1.40 | EXTERNAL | | | | | mg/dL | LAB | | + +-------+ + + + | BUN/Creatin | 13.6 | 7.0 - 24.0 | EXTERNAL | [...]
--- OUTSIDE RECORDS SUMMARY | ~2019-02-17 | XMS | Encounter Summary ---
Demographics + + + | Address | [address] | | | [place] [address] | + + + | Home Phone [...] Providers + +------+ + | Care Systems Navigator Name | Role | Phone | + [...] | | | | [place], [place] | [address] | | | | | [address] | [phone] | | | | | [phone] | | | +--------+ + + + [...] [place] | | | | | | [address] | | | | | | [phone] | | | | | | | | +--------+---------+ + + + | 02/26/ | Office | Urology | Lillie Fowler | | | 2018 | Visit | | [address]ILLIE Lopez [address] | | | | | | [address] | | | | | | [place] | | | | | | [address] | | | | | | [phone] | | | | | | | | +--------+---------+ + + + | 03/16/ | Office | Neurology | Theresa, | | | 2018 | Visit | | [address] | | | | | [address] [place], | | | | | | [place] [address] | | | | | | [phone] | | | | | | | | +--------+---------+ + + + | 04/12/ | Office | Primary Care | Massimo Ramos | | | 2019 | Visit | | MD Fer [address] | | | | | | [place] | | | | | | [address] | | | | | | | | +--------+---------+ + + + | 10/03/ | Office | Neurology | Fabián Carias MD | | | 2019 | Visit | | [address] | | | | | | [place] | | | | | | [address] | | | | | | | [...] | care | | | Registered Nurse Teacher-C | | | | | | [...] | care | | | Registered Nurse Teacher-C | | | | | | [...] | care | | | Registered Nurse Teacher-C | | | | | | [...] | care | | | Registered Nurse Teacher-C | | | | | | [...]
--- OUTSIDE RECORDS SUMMARY | ~2019-02-17 | XMS | Encounter Summary ---
Demographics + + + | Address | [address] | | | [place] [address] | + + + | Home Phone [...] Team Providers + +------+ + | Care Sample Driller Name | Role | Phone | [...] | 2017 | | [facility] | DO [address] [place] | | | | | [facility] [address] | [facility], [place] | | | | | [address] [place], | [address] | | | | | [place] [address] | [phone] | | | | | [phone] | | | +--------+--------+ + + + [...] [place] | | | | | | [address] | | | | | | [phone] | | | | | | | | +--------+---------+ + + + | 02/26/ | Office | Urology | Lillie Fowler | | | 2018 | Visit | | [address] | | | | | | [address] | | | | | | [place] | | | | | | [address] | | | | | | [phone] | | | | | | | | +--------+---------+ + + + | 03/16/ | Office | Neurology | Theresa, | | | 2018 | Visit | | [address] | | | | | | [address] [place], | | | | | | [place] [address] | | | | | | [phone] | | | | | | | | +--------+---------+ + + + | 04/12/ | Office | Primary Care | Massimo Ramos | | | 2019 | Visit | | MD Fer [address] | | | | | | [place] | | | | | | [address] | | | | | | | | +--------+---------+ + + + | 10/03/ | Office | Neurology | Fabián Carias MD | | | 2019 | Visit | | [address] | | | | | | [place], [place] | | | | | | [address] | | | | | | | [...] | | | care | | | Nitroglycerin Distributor-C | | | | | | | [...] | | | care | | | Nitroglycerin Distributor-C | | | | | | | [...] | | | care | | | Nitroglycerin Distributor-C | | | | | | | [...] | | | care | | | Nitroglycerin Distributor-C | | | | | | | [...]
--- OUTSIDE RECORDS SUMMARY | ~2019-02-17 | XMS | Encounter Summary ---
Demographics + + + | Address | [address] | | | [place] [address] | + + + | Home Phone [...] Team Providers + +------+ + | Care Catering Associate Name | Role | Phone | [...] | | | [facility] [address] | [facility], [place] | | | | | [address] [place], | [address] | | | | | [place] [address] | [phone] | | | | | [phone] | | | +--------+ + + + [...] [place] | | | | | | [address] | | | | | | [phone] | | | | | | | | +--------+---------+ + + + | 02/26/ | Office | Urology | Lillie Fowler | | | 2018 | Visit | | [address]ILLIE Lopez [address] | | | | | | [address] | | | | | | [place], [place] | | | | | | [address] | | | | | | [phone] | | | | | | | | +--------+---------+ + + + | 03/16/ | Office | Neurology | Theresa, | | | 2018 | Visit | | [address] | | | | | | [address] [place], | | | | | | [place] [address] | | | | | | [phone] | | | | | | | | +--------+---------+ + + + | 04/12/ | Office | Primary Care | Massimo Ramos | | | 2019 | Visit | | MD Fer [address] | | | | | | [place] | | | | | | [address] | | | | | | | | +--------+---------+ + + + | 10/03/ | Office | Neurology | Fabián Carias MD | | | 2019 | Visit | | [address] | | | | | | [place] | | | | | | [address] | | | | | | | [...] | | | care | | | Extension Clerk-C | | | | | | [...] | | | care | | | Extension Clerk-C | | | | | | [...] | | | care | | | Extension Clerk-C | | | | | | [...] | | | care | | | Extension Clerk-C | | | | | | [...]
--- OUTSIDE RECORDS SUMMARY | ~2019-02-17 | XMS | Encounter Summary ---
Demographics + + + | Address | [address] | | | [place] [address] | + + + | Home Phone [...] Team Providers + +------+ + | Care Insulation Power Unit Tender Name | Role | Phone | [...] [facility] | DO [address] [place] | | | | | [facility] [address] | [facility], [place] | | | | | [address] [place], | [address] | | | | | [place] [address] | [phone] | | | | | [phone] | | | +--------+ + + + [...] [place] | | | | | | [address] | | | | | | [phone] | | | | | | | | +--------+---------+ + + + | 02/26/ | Office | Urology | Lillie Fowler | | | 2018 | Visit | | [address] | | | | | | [address] | | | | | | [place], [place] | | | | | | [address] | | | | | | [phone] | | | | | | | | +--------+---------+ + + + | 03/16/ | Office | Neurology | Theresa, | | | 2018 | Visit | | [address] | | | | | | [address] [place], | | | | | | [place] [address] | | | | | | [phone] | | | | | | | | +--------+---------+ + + + | 04/12/ | Office | Primary Care | Massimo Ramos | | | 2019 | Visit | | MD Fer [address] | | | | | | [address] [place], [place] | | | | | | [address] | | | | | | | | +--------+---------+ + + + | 10/03/ | Office | Neurology | Fabián Carias MD | | | 2019 | Visit | | [address] | | | | | | [place] | | | | | | [address] | | | | | | | [...] | | care | | | Sales Marketing Coordinator-C | | | | | [...] | | care | | | Sales Marketing Coordinator-C | | | | | [...] | | care | | | Sales Marketing Coordinator-C | | | | | [...] | | care | | | Sales Marketing Coordinator-C | | | | | | | linical | + +--------+ +---+-----+ + + + | Note: Pt will | | check CBG's daily x1 | | Pt will take Lantis as | | prescribed | + + documented as of this encounter Visit Diagnoses Not on filedocumented in this encounter"
--- OUTSIDE RECORDS SUMMARY | ~2019-02-17 | XMS | Encounter Summary ---
Demographics + + + | Address | [address] | | | [place] [address] | + + + | Home Phone [...] Team Providers + +------+ + | Care Automotive Production Worker Name | Role | Phone | [...] to ER) | | 2019 | | [facility] | | | | | | CLINIC [address] | | | | | | [address] [place], | | | | | | [place] [address] | | | | | | [phone] | | | +--------+ + + + [...] [place] | | | | | | [address] | | | | | | [phone] | | | | | | | | +--------+---------+ + + + | 02/26/ | Office | Urology | Lillie Fowler | | | 2018 | Visit | | [address] | | | | | | [address] | | | | | | [place], [place] | | | | | | [address] | | | | | | [phone] | | | | | | | | +--------+---------+ + + + | 03/16/ | Office | Neurology | Theresa, | | | 2018 | Visit | | [address] | | | | | | [address] [place], | | | | | | [place] [address] | | | | | | [phone] | | | | | | | | +--------+---------+ + + + | 04/12/ | Office | Primary Care | Massimo Ramos | | | 2019 | Visit | | MD Fer [address] | | | | | | [place] | | | | | | [address] | | | | | | | | +--------+---------+ + + + | 10/03/ | Office | Neurology | Fabián Carias MD | | | 2019 | Visit | | [address] | | | | | | [place] | | | | | | [address] | | | | | | | [...] | | | care | | | Pressurised Container Filler-C | | | | | | [...] | | | care | | | Pressurised Container Filler-C | | | | | | [...] | | | care | | | Pressurised Container Filler-C | | | | | | [...] | | | care | | | Pressurised Container Filler-C | | | | | | [...]
--- OUTSIDE RECORDS SUMMARY | ~2019-02-17 | XMS | Encounter Summary ---
Demographics + + + | Address | [address] | | | [place] [address] | + + + | Home Phone [...] Providers + +------+ + | Care Auto Body Repairer Name | Role | Phone | [...] | | | [facility] | Testing Specialist-Clinical | | | | | [address] [facility], | | | | | | [place] [address] | | | | | | [phone] | | | +--------+ + + + [...] [place] | | | | | | [address] | | | | | | [phone] | | | | | | | | +--------+---------+ + + + | 02/26/ | Office | Urology | Lillie Fowler | | | 2018 | Visit | | [address]IE [address] | | | | | | [address] | | | | | | [place], [place] | | | | | | [address] | | | | | | [phone] | | | | | | | | +--------+---------+ + + + | 03/16/ | Office | Neurology | Theresa, | | | 2018 | Visit | | [address] | | | | | | [address] [place], | | | | | | [place] [address] | | | | | | [phone] | | | | | | | | +--------+---------+ + + + | 04/12/ | Office | Primary Care | Massimo Ramos Pedro Luis | | | 2019 | Visit | | MD Fer [address] | | | | | | [place] | | | | | | [address] | | | | | | | | +--------+---------+ + + + | 10/03/ | Office | Neurology | Fabián Carias MD | | | 2019 | Visit | | [address] | | | | | | [place] | | | | | | [address] | | | | | | | [...] | | | care | | | Testing Specialist-C | | | | | | [...] | | | care | | | Testing Specialist-C | | | | | | [...] | | | care | | | Testing Specialist-C | | | | | | [...] | | | care | | | Testing Specialist-C | | | | | | [...]
--- OUTSIDE RECORDS SUMMARY | ~2019-02-17 | XMS | Encounter Summary ---
Demographics + + + | Address | [address] | | | [place] [address] | + + + | Home Phone [...] Team Providers + +------+ + | Care Multiple Drum Sander Helper Name | Role | Phone | [...] | | [place], [place] | [place] [address] | in kidney (HCC) | | 2019 | | [address] | [phone] | (Primary Dx); | | | | [phone] | | Leukocytosis, | | | | | Fernando Ibrahim MD | unspecified type; | | | | | [address] [place] | Hypotension due to | | | | | [place] [address] | hypovolemia; VIKAS | | | | | [phone] | (acute kidney | | | | | | injury) (HCC) | | | | | Kasey Salinas, ANALYTICAL LEAD | | | | | | [address] | | | | | | [place] [address] | | | | | | [phone] | | | | | | | [...] nonseasonal allergic rhinitis due to pollen 03/07/2017 halfway current use of aspirin 03/07/2017 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, left halfway current use of opiate analgesic 06/27/2017 Current use of beta marly 06/30/2017 Panlobular emphysema 08/08/2017 Atherosclerosis of pala coronary artery of pala heart without angina pectoris 08/08 On potassium [...] sciatica 02/19/2018 Hypoxia 03/16/2018 Neutrophilic leukocytosis 03/17/2018 joint terminal attack controller current use of non-steroidal anti-inflammatories (NSAID) 04/08/2018 [...] Follow-Up Plans: Horacio Silvestre DO [address] [facility] [address] In 1 week Hospital follow up Physical [...] Procedure Component Value Units Date/Time Clostridium difficile [[id number]] Order Status: Canceled Lab Status: No result Specimen: Stool from Stool Culture, Blood [[id number]] (Normal) Collected: 07/08/18 0245 Order Status: Completed Lab Status: Preliminary result Updated: 07/10/18250 Specimen: Blood from Peripheral Blood Culture No growth: Monitored continually by instrument for 5 days Culture, Blood [[id number]] (Normal) Collected: 07/08/18 0235 Order Status: Completed [...] Care Everywhere.Kidney Injury, Acute, Discharge Instructions for (Maori)documented in this encounter Medications at Time of [...] Clarence Coulter, PharmMercedes 07/10/2018 11:44 Hilda Wells, ANALYTICAL LEAD - 07/09/2018 11:08 AM PDTFormatting of this note might be different from the origi nal. MEDICAL HOSPITALIST TEAM PROGRESS NOTE Name:[facility] Day # 1 Assessment and Plan: [...] MEDICAL HOSPITALIST TEAM PROGRESS NOTE Name:[facility] Day # 0 Assessment and Plan: Reason [...] Procedure Component Value Units Date/Time Culture, Blood [[id number]] Collected: 07/08/18244 Order Status: Sent Lab Status: In process Updated: 07/08/18246 Specimen: Blood from Peripheral Blood Culture, Blood [[id number]] Collected: 07/08/18 0235 Order Status: Sent Lab [...] oxycodone 30mg tablet q8h prn. Please see PAROLE DIRECTOR med list for updated medication list. Electronically [...] [place] | | | | | | [address] | | | | | | [phone] | | | | | | | | +--------+---------+ + + + | 02/26/ | Office | Urology | Lillie Fowler | | | 2019 | Visit | | LILLIE Lopez [address] | | | | | [address] | | | | | | [place] | | | | | | [address] | | | | | | [phone] | | | | | | | | +--------+---------+ + + + | 03/16/ | Office | Neurology | Theresa, | | | 2018 | Visit | | Karyanne, MACHINE CONTAINER WASHER [address] [place], | | | | | | [place] [address] | | | | | | [phone] | | | | | | | | +--------+---------+ + + + | 04/12/ | Office | Primary Care | Massimo Ramos | | | 2019 | Visit | | MD Fer [address] | | | | | | [address] [place] | | | | | | [address] | | | | | | | | +--------+---------+ + + + | 10/03/ | Office | Neurology | Fabián Carias MD | | | 2019 | Visit | | [address] | | | | | | [place] | | | | | | [address] | | | | | | | [...] | | care | | | Cyber Crime Investigator-C | | | | | | [...] | | care | | | Cyber Crime Investigator-C | | | | | | [...] | | care | | | Cyber Crime Investigator-C | | | | | | [...] | | care | | | Cyber Crime Investigator-C | | | | | | [...] J?MRN: | | | | | | [id number] | | | [id number] | | | riteri | | | [...] | | | [place] | | | Compliance Program Manager | | | al | | [...] | | | [place] | | | Compliance Program Manager | | | al | | [...] | | | [id number] | | | [id number] | | | -[id number] | | | [...] + + | [place] [facility] | [address] | [place] [address] | [phone] | | [facility] | | | [...] + + | [place] [facility] | [address] | [place] [address] | [phone] | | [facility] | | | [...] + + | [place] [facility] | [address] | [place] [address] | [phone] | | [facility] | | | [...] | mL/min/1.73m2 | [facility] | | | [facility] | | [facility] | | | [...] + + | [place] [facility] | [address] | [place] [address] | [phone] | | [facility] | | | [...] + + | [place] [facility] | [address] | [place] [address] | [phone] | | [facility] | | | [...] + + | [place] [facility] | [address] | [place] [address] | [phone] | | [facility] | | | [...] + + | [place] [facility] | [address] | [place] [address] | [phone] | | [facility] | | | [...] + + | [place] [facility] | [address] | [place] [address] | [phone] | | [facility] | | | [...] + + | [place] [facility] | [address] | [place] [address] | [phone] | | [facility] | | | [...] + + | [place] [facility] | [address] | [place] [address] | [phone] | | [facility] | | | [...] | mL/min/1.73m2 | [facility] | | [facility] | | [facility] | | | [...] + + | [place] [facility] | [address] | [place] [address] | [phone] | | [facility] | | | [...] + + | [place] [facility] | [address] | [place] [address] | [phone] | | [facility] | | | [...] + + | [place] [facility] | [address] | [place] [address] | [phone] | | [facility] | | | [...] + + | [place] [facility] | [address] | [place] [address] | [phone] | | [facility] | | | [...] + + | [place] [facility] | [address] | [place] [address] | [phone] | | [facility] | | | [...] - 1.030 | [place] | | | [place] | | | [facility] | | | [...] + + | [place] [facility] | [address] | [place] [address] | [phone] | | [facility] | | | [...] + + | [place] [facility] | [address] | [place] [address] | [phone] | | [facility] | | | [...] | [address] | [place] [address] | [phone] | | [facility] | | | [...] | mL/min/1.73m2 | [facility] | | | [facility] | | | [facility] | | | [...] + + | [place] [facility] | [address] | [place] [address] | [phone] | | [facility] | | | [...] | 0.04 | 0.00 - 0.20 | [facility] | | | Basophils | | K/uL [...] + + | [place] [facility] | [address] | [place] [address] | [phone] | | [facility] | | | [...] + + | [place] [facility] | [address] | [place] [address] | [phone] | | [facility] | | | [...] + + | [place] [facility] | [address] | [place] [address] | [phone] | | [facility] | | | [...] + + | [place] [facility] | [address] | [place] [address] | [phone] | | [facility] | | | | + + + + + ECG 12 lead (07/07/2018 10:12 PM PDT) + + | Specimen | + + | | + + + + + | Narrative | Performed At | + + + | Heart Rate: 74 | [facility] | | bpmQRS Interval: 98 msQT Interval: 432 msQTC Interval: 480 msP [place]: | TRACEMASTER | | 17 degQRS [place]: -47 degT Wave [place]: -5 degP-R Interval: 180 msec- | | [...] + + | [place] | [address] | [place] [address] | [phone] | | [facility] | | | [...] + + | [place] [facility] | [address] | [place] [address] | [phone] | | [facility] | | | [...] + + | [place] [facility] | [address] | [place] [address] | [phone] | | [facility] | | | [...] + + | [place] [facility] | [address] | [place] [address] | [phone] | | [facility] | | | [...] such as unstable angina or | [facility] | | non-Q wave myocardial infarction, cardiac troponin I levels provide | HOSPITAL | | useful prognostic information and aid in early detection of such | LAB[facility]ATORY | | patients with an increased risk of . The Risk Stratification | | | cutpoint for the Troponin I method is 0.1 ng/mL. The diagnostic | | | cutoff point for the diagnosis of UT is 0.8 ng/mL for the Troponin I | | | method. | | + + + + + + + + | Performing | Address | City/State/Zipcode | Phone Number | | Organization | | | | + + + + + | [facility] | [address] | [place] [address] | [phone] | | [facility] | | | [...] + + | [place] [facility] | [address] | [place] [address] | [phone] | | [facility] | | | [...] | mL/min/1.73m2 | [facility] | | | [facility] | RATE,ESTIMATED | | [facility] | | | | mL/min/1.39j1Bbke than | | LAB[facility]ATORY | | | [...] + + | [facility] | [address] | [place] [address] | [phone] | | [facility] | | | [...] + + | [facility] | [address] | [place] [address] | [phone] | | [facility] | | | [...] mL 0.5 mL, | | | Intramuscular, EMERGENCY RESPONSE TECHNICIAN, Starting | | | Fri07/08/18 at 1139, [...] | | | | AC, NPO, Daytime 8120-4024 Use | | | | | | | NIGHT DOSE for doses scheduled: | | | | | | | HS, 3AM, Nighttime 9057-0528 | | | | | | | [...] | | | | | | | [facility] 07/09/18 at 0730, Give before | | [...]
--- OUTSIDE RECORDS SUMMARY | ~2019-02-17 | XMS | Encounter Summary ---
Demographics + + + | Address | [address] | | | [place] [address] | + + + | Home Phone | | + + + | Preferred Language | Unknown | + + + | Marital Status | | + + + | Faith Affiliation | 1025 | + + + | Race | Unknown | + + + | Ethnic Group | Unknown | + + + Author + + + | Author | [facility] | | | and [place] | + + + | Organization | [facility] | | [...] Team Providers + +------+ + | Care Guest Specialist Name | Role | Phone | [...] | | | | [address] [facility], | [address] | | | | | [place] [address] | [phone] | | | | | [phone] | | | +--------+--------+ + + + [...] [place] | | | | | | [address] | | | | | | [phone] | | | | | | | | +--------+---------+ + + + | 02/26/ | Office | Urology | Lillie Fowler | | | 2019 | Visit | | LILLIE Lopez [address] | | | | | | [address] | | | | | | [place], [place] | | | | | | [address] | | | | | | [phone] | | | | | | | | +--------+---------+ + + + | 03/16/ | Office | Neurology | Theresa, | | | 2018 | Visit | | SHONDA Mck[address]ney [address] | | | [address] [place], | | | | | | [place] [address] | | | | | | [phone] | | | | | | | | +--------+---------+ + + + | 04/12/ | Office | Primary Care | Massimo Ramos Pedro Luis | | | 2019 | Visit | | MD Fer [address] | | | | | | [place] | | | | | | [address] | | | | | | | | +--------+---------+ + + + | 10/03/ | Office | Neurology | Fabián Carias MD | | | 2019 | Visit | | [address] | | | | | | [place] | | | | | | [address] | | | | | | | [...] | | | care | | | Hot Saw Helper-C | | | | | | [...] | | | care | | | Hot Saw Helper-C | | | | | | [...] | | | care | | | Hot Saw Helper-C | | | | | | [...] | | | care | | | Hot Saw Helper-C | | | | | | | linical | + +--------+ +---+-----+ + + + | Note: Pt will | | check CBG's daily x1 | | Pt will take Lantis as | | prescribed | + + documented as of this encounter Visit Diagnoses Not on filedocumented in this encounter"
--- OUTSIDE RECORDS SUMMARY | ~2019-02-17 | XMS | Encounter Summary ---
Demographics + + + | Address | [address] | | | [place] [address] | + + + | Home Phone [...] Providers + +------+ + | Care Package Handler Name | Role | Phone | [...] | | [place], [place] | [place] [address] | | | | | [address] | [phone] | | | | | [phone] | | | +--------+ + + + [...] [place] | | | | | | [address] | | | | | | [phone] | | | | | | | | +--------+---------+ + + + | 02/26/ | Office | Urology | Lillie Fowler | | | 2018 | Visit | | LILLEI Lopez [address] | | [address] | | | | | | [place] | | | | | | [address] | | | | | | [phone] | | | | | | | | +--------+---------+ + + + | 03/16/ | Office | Neurology | Theresa, | | | 2018 | Visit | | SH[address]DA [address] [place], | | | | | | [place] [address] | | | | | | [phone] | | | | | | | | +--------+---------+ + + + | 04/12/ | Office | Primary Care | Massimo Ramos | | | 2019 | Visit | | MD Fer [address] | | | | | | [place] | | | | | | [address] | | | | | | | | +--------+---------+ + + + | 10/03/ | Office | Neurology | Fabián Carias MD | | | 2020 | Visit | | [address] | | | | | | [place] | | | | | | [address] | | | | | | | [...] | | | care | | | Molding Associate-C | | | | | | [...] | | | care | | | Molding Associate-C | | | | | | [...] | | | care | | | Molding Associate-C | | | | | | [...] | | | care | | | Molding Associate-C | | | | | | [...]
--- OUTSIDE RECORDS SUMMARY | ~2019-02-17 | XMS | Encounter Summary ---
Demographics + + + | Address | [address] | | | [place] [address] | + + + | Home Phone [...] Team Providers + +------+ + | Care Rotary Peel Oven Tender Name | Role | Phone | [...] + + | 10/02/ | Hospital [facility] | Juan Williamson | Delirium (Primary | | 2019 - | Encounter | HOSPITAL MED SURG | MD Izaiah [address] | Dx); Fever, | | | | [address] | [facility] | unspecified fever | | 10/06/ | | [place], [place] | [place] [address] | cause; Hypoxemia; | | 2019 | | [address] | [phone] | Acute exacerbation | | | | [phone] | | of chronic | | | | | Kim Mary, | obstructive | | | | | [address] | pulmonary disease | | | | | [place] [address] | (COPD) ([facility]); | | | | | [phone] | Pneumonia due to | | | | | | infectious organism, | | | | | Esteban Calvillo, | unspecified | | | | | MD [address] | laterality, | | | | | [place] [address] | unspecified part of | | | | | [phone] | lung; Urinary tract | | | | | | infection with | | | | | Orr, Luciano, MD [address] | hematuria, site | | | | | [address] | unspecified; | | | | | [place] | Hypomagnesemia; | | | | | [address] | Dehydration; | | | | | [phone] | Metabolic | | | | | [...] nonseasonal allergic rhinitis due to pollen 03/07/2017 [facility] current use of aspirin 03/07/2017 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, left Current use of beta marly 06/30/2017 Panlobular emphysema 08/08/2017 Atherosclerosis of [place] coronary artery of [place] heart without angina pectoris 08/08 On potassium [...] Problems Diagnosis Date Noted Essential hypertension 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 Dictated by: Troy aLwrence Ct Angiogram Pulmonary Result Date: 09/30/2018 EXAMINATION: CT ANGIOGRAM PULMONARY HISTORY: LEG SWELLING COMPARISON STUDY: CT chest 2017. CT chest 12/25/2016. TECHNIQUE: 5 mm axial slices were acquired through the lungs dur ing an arterial phase of contrast. Multiplanar MIP reconstructions were performed. There w as no post contrast reaction. DOSE REPORT: CTDIvol: 4.4 - 22.2 mGy. DLP: 633 mGy-cm. Automa rosemaire exposure control was utilized. FINDINGS: The bolus [...] Franklin MD [address] [place] [address] Franklin as scheduled. Dr Davy Bhatti 10/15/18 12:45 check in time Korin Lojaannie, DO [address] [place] [address] Korin Messerantonio, DO [address] [place] [address] In 1 week Electronically signed by: Luciano Orr 10/12/2018 7:18 [facility] Time spent discharging this patient: Greater than 30 minutes documented in this encounter Discharge Instructions AttachmentsThe following attachments cannot be sent through Care Everywhere.Fall Prevention (Polish)Falls, Preventing, Are You At Risk of Falling? (Polish)Adult, Pneumonia (Polish) Bladder Infection, Male (Adult) (Polish)documented in this encounter Medications at Time [...] of this encounter Progress Notes Scott Caballero, Package Collector - 10/06/2018 4:08 PM PDT PHARMACY SERVICES: [...] this time. Electronically signed by: Scott Caballero, Package Collector 10/06/2018 16:08Electronically sign ed by Cynthia Mendes, [...] signed by: Esteban Calvillo 10/05/2018 11:57 [facility] Portions of this chart may have been created with voice recognition software. Occasional wo rd or "sound-alike" substitutions may have occurred due to the inherent limitation of voice recognition software. Read the chart carefully and recognize, using context, where these sub stitutions have occurred. sEteban Mccormick MD - 10/04/2018 2:38 PM PDT [...] 3.2 Pertinent micro results: Culture, Urine Order: [id number] - Reflex for Order [id number] Status: Final result Visible to patient: No (Not Released) Next appt: 10/26/2018 at 13:00 in Primary Care (Faraz Tejada, NENO) Specimen Information: Urine, Clean Catch Culture Result 30,000 - 40,000 CFU/ml Mixed jonah (multiple morphologies present) Suggests contamination with urogenital or skin jonah. Resulting Agency: [facility] Specimen Collected: 09/30/18 16:22 Last Resulted: 10/02/18 Electronically signed by: Esteban Calvillo 10/04/2018 14:38 [facility] [...] #2 metabolic encephalopathy. Significantly improved. I did student success counselor the family on the waxi ng [...] signed by: Esteban Calvillo 10/03/2018 12:46 [facility] Portions of this chart may have been created with voice recognition software. Occasional wo rd or "sound-alike" substitutions may have occurred due to the inherent limitation of voice recognition software. Read the chart carefully and recognize, using context, where these sub stitutions have occurred. Cedric Ibarra , Package Collector - 10/03/2018 9:01 AM PDTPHARMACY SERVICES: ADMISSION [...] the evening. When asked about the finasteride De and his were confuse d about this [...] performed and electronically signed by Cedric Chiu, Package Collector 10/03/2018 9:01 Associated attestation - Isadora Calvillo, PharmD - 10/05/2018 8:47 AM PDTI agree with Cedirc Chiu's findings as documented in the note [...] [place] | | | | | | [address] | | | | | | [phone] | | | | | | | | +--------+---------+ + + + | 02/26/ | Office | Urology | Lillie Fowler | | | 2018 | Visit | | LILLIE Lopez [address] | | | | | | [address] | | | | | | [place], [place] | | | | | | [address] | | | | | | [phone] | | | | | | | | +--------+---------+ + + + | 03/16/ | Office | Neurology | Theresa, | | | 2018 | Visit | | SHONDA Mck[address]ney [address] | | | | | [address] [place], | | | | | | [place] [address] | | | | | | [phone] | | | | | | | | +--------+---------+ + + + | 04/12/ | Office | Primary Care | Richard Massimo Hsi | | | 2019 | Visit | | MD Fer [address] | | | | | | [place] | | | | | | [address] | | | | | | | | +--------+---------+ + + + | 10/03/ | Office | Neurology | Fabián Carias MD | | | 2019 | Visit | | [address] | | | | | | [place] | | | | | | [address] | | | | | | | [...] | | care | | | Cloth Desizing Range Tender-C | | | | | | [...] | | care | | | Cloth Desizing Range Tender-C | | | | | | [...] | | care | | | Cloth Desizing Range Tender-C | | | | | | [...] | | care | | | Cloth Desizing Range Tender-C | | | | | | [...] J?MRN: | | | | | | [id number] | | | [id number] | | | riteri | | | [...] | | | [place] | | | Rn Admit | | | al | | | [...] | | | [place] | | | Rn Admit | | | al | | | [...] | | | [place] | | | Rn Admit | | | al | | | [...] | | | [place] | | | Rn Admit | | | al | | | [...] | | | [place] | | | Rn Admit | | | al | | | [...] | | | ent/e5 | | | [id number] | | | [id number] | | | [...] + + | [place] [facility] | [address] | [place] [address] | [phone] | | HOSPITAL [facility] | | | [...] + + | [facility] | [address] | [place] [address] | [phone] | | HOSPITAL [facility] | | | [...] + + | [place] [facility] | [address] | [place] [address] | [phone] | | HOSPITAL [facility] | | | [...] + + | [place] [facility] | [address] | [place] [address] | [phone] | | HOSPITAL LAB[facility] | | | [...] + + | [facility] | [address] | [place] [address] | [phone] | | HOSPITAL [facility] | | | [...] + + | [facility] [facility] | [address] | [place] [address] | [phone] | | HOSPITAL LAB[facility]ORY | | | [...] + + | [facility] [facility] | [address] | [place] [address] | [phone] | | HOSPITAL LAB[facility]ORY | | | [...] | mL/min/1.73m2 | [facility] | | | [facility] | | [facility] | | | [...] + + | [place] [facility] | [address] | [place] [address] | [phone] | | HOSPITAL LAB[facility]ORY | | | [...] + + | [place] [facility] | [address] | [place] [address] | [phone] | | H[facility]PITAL [facility] | | | [...] + + | [place] [facility] | [address] | [place] [address] | [phone] | | H[facility]PITAL [facility] | | | [...] + + | [facility] | [address] | [place] [address] | [phone] | | HOSPITAL LAB[facility] | | | [...] + + | [place] [facility] | [address] | [place] [address] | [phone] | | HOSPITAL LAB[facility] | | | [...] + + | [place] [facility] | [address] | [place] [address] | [phone] | | HOSPITAL LAB[facility] | | | [...] + + | [facility] | [address] | [place] [address] | [phone] | | H[facility]PITAL [facility] | | | [...] | mL/min/1.73m2 | [facility] | | | [facility] | | [facility] | | | [...] + + | [place] [facility] | [address] | [place] [address] | [phone] | | HOSPITAL LAB[facility]ORY | | | [...] + + | [facility] [facility] | [address] | [place] [address] | [phone] | | HOSPITAL LAB[facility] | | | [...] + + | [place] [facility] | [address] | [place] [address] | [phone] | | HOSPITAL [facility] | | | [...] + + | [place] [facility] | [address] | [place] [address] | [phone] | | HOSPITAL [facility] | | | [...] + + | [facility] | [address] | [place] [address] | [phone] | | HOSPITAL [facility] | | | [...] + + | [facility] | [address] | [place] [address] | [phone] | | HOSPITAL [facility] | | | [...] + + | [facility] | [address] | [place] [address] | [phone] | | H[facility]ITAL [facility] | | | [...] + + | [facility] | [address] | [place] [address] | [phone] | | H[facility]PITAL [facility] | | | [...] + + | [facility] | [address] | [place] [address] | [phone] | | H[facility]PITAL [facility] | | | [...] + + | [place] [facility] | [address] | [place] [address] | [phone] | | HOSPITAL [facility] | | | [...] | mL/min/1.73m2 | [facility] | | | [facility] | | [facility] | | | [...] + + | [facility] | [address] | [place] [address] | [phone] | | H[facility]PITAL [facility] | | | [...] + + | [facility] | [address] | [place] [address] | [phone] | | H[facility]PITAL [facility] | | | [...] lateral airspace opacity. Flattening of the hemidiaphragm. Crime Data Specialist ior left lower lobe mass | |is [...] + + | [facility] | [address] | [place] [address] | [phone] | | H[facility]PITAL [facility] | | | [...] Interval: 408 msP | TRACEMASTER | | Miles: 24 degQRS Miles: -22 degT Wave Miles: 18 degP-R Interval: 172 | | | [...] + + | [facility] | [address] | [place] [address] | [phone] | | HOSPITAL [facility] | | | [...] + + | [facility] | [address] | [place] [address] | [phone] | | HOSPITAL LAB[facility] | | | [...] - 1.030 | [place] | | | [employer] | | | [facility] | | | [...] + + | [place] [facility] | [address] | [place] [address] | [phone] | | HOSPITAL [facility] | | | [...] + + | [place] [facility] | [address] | [place] [address] | [phone] | | HOSPITAL [facility] | | | [...] + + | [place] [facility] | [address] | [place] [address] | [phone] | | HOSPITAL LAB[facility] | | | [...] + + | [place] | [address] | [place] [address] | [phone] | | HOSPITAL LAB[facility] | | | [...] + | A study performed by the financial services counselor using this assay showed a 99% | [...] + + | [facility] | [address] | [place] [address] | [phone] | | HOSPITAL [facility] | | | [...] + + | [facility] | [address] | [place] [address] | [phone] | | HOSPITAL [facility] | | | [...] + + | [facility] | [address] | [place] [address] | [phone] | | HOSPITAL [facility] | | | [...] | mL/min/1.73m2 | [facility] | | | [facility] | RATE,ESTIMATED | | [facility] | | | | mL/min/1.23e1Jdtn than | | LABORATORY | | | [...] + + | [facility] | [address] | [place] [address] | [phone] | | H[facility]PITAL [facility] | | | [...] + + | [facility] | [address] | [place] [address] | [phone] | | HOSPITAL [facility] | | | [...] + + | [facility] | [address] | [place] [address] | [phone] | | HOSPITAL [facility] | | | [...] + + | [facility] | [address] | [place] [address] | [phone] | | HOSPITAL [facility] | | | [...] + + | [facility] | [address] | [place] [address] | [phone] | | HOSPITAL [facility] | | | [...] + + | [facility] | [address] | [place] [address] | [phone] | | HOSPITAL LAB[facility]ORY | | | [...] | | | | | | | 6494-1735 Use NIGHT DOSE for | | | | | | | doses scheduled: HS, 3AM, | | | | | | | Nighttime 6357-3527 If the BG is | | | [...]
--- OUTSIDE RECORDS SUMMARY | ~2019-02-17 | XMS | Encounter Summary ---
Demographics + + + | Address | [address] | | | [place] [address] | + + + | Home Phone [...] Team Providers + +------+ + | Care Homogenizer Operator Name | Role | Phone | [...] | | | | [place] | [place] [address] | | | | | [address] | [phone] | | | | | [phone] | | | +--------+ + + + [...] [place] | | | | | | [address] | | | | | | [phone] | | | | | | | | +--------+---------+ + + + | 02/26/ | Office | Urology | Lillie Fowler | | | 2018 | Visit | | LILLIE Lopez [address] | | | | | | [address] | | | | | | [place] | | | | | | [address] | | | | | | [phone] | | | | | | | | +--------+---------+ + + + | 03/16/ | Office | Neurology | Theresa, | | | 2018 | Visit | | SHONDA M[address]ney [address] | | [address] [place], | | | | | | [place] [address] | | | | | | [phone] | | | | | | | | +--------+---------+ + + + | 04/12/ | Office | Primary Care | Massimo Ramos | | | 2019 | Visit | | MD Fer [address] | | | | | | [place] | | | | | | [address] | | | | | | | | +--------+---------+ + + + | 10/03/ | Office | Neurology | Fabián Carias MD | | | 2019 | Visit | | [address] | | | | | | [place] | | | | | | [address] | | | | | | | [...] | | | care | | | Expert Witness-C | | | | | | | [...] | | | care | | | Expert Witness-C | | | | | | | [...] | | | care | | | Expert Witness-C | | | | | | | [...] | | | care | | | Expert Witness-C | | | | | | | [...]
--- OUTSIDE RECORDS SUMMARY | ~2019-02-17 | XMS | Encounter Summary ---
Demographics + + + | Address | [address] | | | [place] [address] | + + + | Home Phone [...] Team Providers + +------+ + | Care Operating Manager Name | Role | Phone | [...] | | | 2019 | Support | [facility] | MD P[address] | | | | | [facility] | [facility], | | | | | [facility], | [place] [address] | | | | | [place] [address] | [phone] | | | | | [phone] | | | | | | | Lizbeth Reddy NP [address] | | | | | | [facility], | | | | | | [place] [address] | | | | | | [phone] | | | | | | | [...] to come pick them up. Conta cted Burney, they will come to picker / packer tanks either tomorrow or next week. Only [...] [place] | | | | | | [address] | | | | | | [phone] | | | | | | | | +--------+---------+ + + + | 02/26/ | Office | Urology | Lillie Fowler | | | 2018 | Visit | | LILLIE Lopez [address] | | | | | | [address] | | | | | | [place] | | | | | | [address] | | | | | | [phone] | | | | | | | | +--------+---------+ + + + | 03/16/ | Office | Neurology | Theresa, | | | 2018 | Visit | | SHONDA [address]ney [address] | | [address] [place], | | | | | | [place] [address] | | | | | | [phone] | | | | | | | | +--------+---------+ + + + | 04/12/ | Office | Primary Care | Massimo Ramos | | | 2019 | Visit | | MD Fer [address] | | | | | | [place] | | | | | | [address] | | | | | | | | +--------+---------+ + + + | 10/03/ | Office | Neurology | Fabián Carias MD | | | 2019 | Visit | | [address] | | | | | | [place] | | | | | | [address] | | | | | | | [...] | | | care | | | Digital Sales Executive-C | | | | | | [...] | | | care | | | Digital Sales Executive-C | | | | | | [...] | | | care | | | Digital Sales Executive-C | | | | | | [...] | | | care | | | Digital Sales Executive-C | | | | | | [...]
--- OUTSIDE RECORDS SUMMARY | ~2019-02-17 | XMS | Encounter Summary ---
Demographics + + + | Address | [address] | | | [place] [address] | + + + | Home Phone [...] Providers + +------+ + | Care Director Work Name | Role | Phone | [...] | [address] [place], [place] | [place] [address] | | | | | [address] | [phone] | | | | | [phone] | | | +--------+ + + + [...] [place] | | | | | | [address] | | | | | | [phone] | | | | | | | | +--------+---------+ + + + | 02/26/ | Office | Urology | Lillie Fowler | | | 2018 | Visit | | LILLIE Lopez [address] | | | | | | [address] | | | | | | [place] | | | | | | [address] | | | | | | [phone] | | | | | | | | +--------+---------+ + + + | 03/16/ | Office | Neurology | Theresa, | | | 2018 | Visit | | SH[address]DA [address] | | [address] [place], | | | | | | [place] [address] | | | | | | [phone] | | | | | | | | +--------+---------+ + + + | 04/12/ | Office | Primary Care | Massimo Ramos | | | 2019 | Visit | | MD Fer [address] | | | | | | [place] | | | | | | [address] | | | | | | | | +--------+---------+ + + + | 10/03/ | Office | Neurology | Fabián Carias MD | | | 2019 | Visit | | [address] | | | | | | [place] | | | | | | [address] | | | | | | | [...] | | | care | | | Surgeon Assistant-C | | | | | | [...] | | | care | | | Surgeon Assistant-C | | | | | | [...] | | | care | | | Surgeon Assistant-C | | | | | | [...] | | | care | | | Surgeon Assistant-C | | | | | | [...] - 1.030 | EXTERNAL | | | [facility], | | | LAB | | | [...] D: | | | 08/18/2015 JOB #: [id number] Read By: DREW Fung | | | [...] mucinous neoplasm. D: | | 08/18/2015JOB #: [id number] Read By: DREW GARZA MD Released By: | | DREW GARAZ, MDDate: 08/18/2015 21:02 | |disk degenerative changes [...] | | | | | |JOB #: [id number] | | | | | |Read By: DREW GARZA MD | | | |Released By: DREW GARZA MD | |Date: 08/18/2015 21:02 | | | | | + + documented in this encounter Visit Diagnoses Not on filedocumented in this encounter"
--- OUTSIDE RECORDS SUMMARY | ~2019-02-17 | XMS | Encounter Summary ---
Demographics + + + | Address | [address] | | | [place] [address] | + + + | Home Phone [...] Team Providers + +------+ + | Care Shredder/Granulator Operator Name | Role | Phone | [...] | | | [facility] | Edger Feeder-Clinical | | | | | [facility], | | | | | | [place] [address] | | | | | | [phone] | | | +--------+ + + + [...] [place] | | | | | | [address] | | | | | | [phone] | | | | | | | | +--------+---------+ + + + | 02/26/ | Office | Urology | Lillie Fowler | | | 2018 | Visit | | LILLIE Lopez [address] | | | | | | [address] | | | | | | [place], [place] | | | | | | [address] | | | | | | [phone] | | | | | | | | +--------+---------+ + + + | 03/16/ | Office | Neurology | Theresa, | | | 2018 | Visit | | SHONDA M[address]ney [address] | | | | [address] [place], | | | | | | [place] [address] | | | | | | [phone] | | | | | | | | +--------+---------+ + + + | 04/12/ | Office | Primary Care | Massimo Ramos Pedro Luis | | | 2019 | Visit | | MD Fer [address] | | | | | | [place] | | | | | | [address] | | | | | | | | +--------+---------+ + + + | 10/03/ | Office | Neurology | Fabián Carias MD | | | 2019 | Visit | | [address] | | | | | | [place] | | | | | | [address] | | | | | | | [...] | | | care | | | Edger Feeder-C | | | | | | [...] | | | care | | | Edger Feeder-C | | | | | | [...] | | | care | | | Edger Feeder-C | | | | | | [...] | | | care | | | Edger Feeder-C | | | | | | [...]
--- OUTSIDE RECORDS SUMMARY | ~2019-02-17 | XMS | Encounter Summary ---
Demographics + + + | Address | [address] | | | [place] [address] | + + + | Home Phone [...] Team Providers + +------+ + | Care Produce Sorter Name | Role | Phone | + +------+ + | Horcaio Silvestre DO | PCP | | + [...] | | | | | | [place] | [facility] | | | | | Office/outpa | MEDICAL | Primary Care | | | | | tient visit | [address] | [address] | | | | | est | [place] | [place] | | | | | [address], | [address] | [address] | | | | | Authorized | [address] [place] | Phone: | | | | | For any | [place] | [phone] | | | | | clinically | [address] | Fax: | | | | | necessary | Phone: | [phone] | | | | | Visits for | [phone] | | | | | | 365 days | Fax: | | | | | | AUTH NO: | [phone] | | | | | | [phone] | | | +--------+--------+ + + + + Encounter Details +--------+---------+ + + + | Date | Type | Department | Care Team | Description | +--------+---------+ + + + | 12/31/ | Office | [facility] [facility] | Horacio Silvestre, | Type 2 diabetes | | 2017 | Visit | [facility] | DO [address] [place] | mellitus with | | | | [facility] | [facility], [place] | diabetic | | | | [address] [place], | [address] | polyneuropathy, with | | | | [place] [address] | [phone] | long-term current | | | | [phone] | | use of insulin (HCC) | | | | | | (Primary Dx); | | | | | | Atherosclerosis of | | | | | | dry creek coronary | | | | | | artery of dry creek | | | | | | heart [...] ins ulin (HCC) Stable 2. Atherosclerosis of dry [place] coronary artery of [place] heart without angina pectoris Stable 3. Primary [...] dinner). Dispense: 180 tablet; Refill: 3 5. meterman current use of opiate analgesic Stable Subjective: [...] CATARACT REMOVAL; Surgeon: Tay Kern MD; Location: [facility]ERY [facility] MOHS SURGERY [...] [place] | | | | | | [address] | | | | | | [phone] | | | | | | | | +--------+---------+ + + + | 02/26/ | Office | Urology | Lillie Fowler | | | 2018 | Visit | | LILLIE Lopez [address] | | | | | | [address] | | | | | | [place] | | | | | | [address] | | | | | | [phone] | | | | | | | | +--------+---------+ + + + | 03/16/ | Office | Neurology | Theresa, | | | 2018 | Visit | | [address]ONDA [address] | | | | | [address] [place], | | | | | | [place] [address] | | | | | | [phone] | | | | | | | | +--------+---------+ + + + | 04/12/ | Office | Primary Care | Massimo Ramos | | | 2019 | Visit | | MD Fer [address] | | | | | | [place] | | | | | | [address] | | | | | | | | +--------+---------+ + + + | 10/03/ | Office | Neurology | Fabián Carias MD | | | 2019 | Visit | | [address] | | | | | | [place] | | | | | | [address] | | | | | | | [...] | care | | | Security Operations Center Analyst-C | | | | | | [...] | care | | | Security Operations Center Analyst-C | | | | | | [...] | care | | | Security Operations Center Analyst-C | | | | | | [...] | care | | | Security Operations Center Analyst-C | | | | | | [...] Primary | + + | Atherosclerosis of dry creek coronary artery of [place] heart without angina pectoris | + + [...]
--- OUTSIDE RECORDS SUMMARY | ~2019-02-17 | XMS | Encounter Summary ---
Demographics + + + | Address | [address] | | | [place] [address] | + + + | Home Phone [...] Providers + +------+ + | Care Assistant Women'S Soccer Coach Name | Role | Phone | [...] [address] | | | | | [place] [address] | | | | | | [phone] | | | +--------+ + + + [...] [place] | | | | | | [address] | | | | | | [phone] | | | | | | | | +--------+---------+ + + + | 02/26/ | Office | Urology | Lillie Fowler | | | 2018 | Visit | | [address]IE [address] | | | | | | [address] | | | | | | [place], [place] | | | | | | [address] | | | | | | [phone] | | | | | | | | +--------+---------+ + + + | 03/16/ | Office | Neurology | Theresa, | | | 2018 | Visit | | [address] | | | | | | [address] [place], | | | | | | [place] [address] | | | | | | [phone] | | | | | | | | +--------+---------+ + + + | 04/12/ | Office | Primary Care | Massimo Ramos | | | 2019 | Visit | | MD Fer [address] | | | | | | [place] | | | | | | [address] | | | | | | | | +--------+---------+ + + + | 10/03/ | Office | Neurology | Fabián Carias MD | | | 2019 | Visit | | [address] | | | | | | [place] | | | | | | [address] | | | | | | | [...] | | | care | | | Expander 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-C | | | | | [...] | | | care | | | Expander 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-C | | | | | [...] | | | care | | | Expander 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-C | | | | | [...] | | | care | | | Expander 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-C | | | | | | | linical | + +--------+ +---+-----+ + + + | Note: Pt will | | check CBG's daily x1 | | Pt will take Lantis as | | prescribed | + + documented as of this encounter Visit Diagnoses Not on filedocumented in this encounter"
--- OUTSIDE RECORDS SUMMARY | ~2019-02-17 | XMS | Clinical Summary ---
Demographics + + + | Address | [address] | | | [place] [address] | + + + | Home Phone [...] Team Providers + +------+ + | Care Transportation Clerk Name | Role | Phone | [...] 10/2 | | Activ | | (MYCOSTATIN) [id number] | times daily. | | | 3/20 [...] | + + + | Atherosclerosis of [place] coronary artery of [place] heart without | 08/08/2017 | | angina [...] | 03/07/2017 | + + + | prison current use of aspirin | 03/07/2017 | [...] 9 | + + + + | prison current use of non-steroidal anti-inflammatories | 04/08/19 [...] 9 | + + + + | prison current use of opiate analgesic | 06/28/19 [...] Case | | | | | | Special Makeup Fx Artist Instructor-Clinical | | +--------+ + + + + | 01/21/ | Telephone | Primary Care | Massimo Ramos | Appointment Question | | 2018 | | | MD Fer | | +--------+ + + + + | 01/18/ | Telephone | Primary Care | Charline Banks, | Care Coordination | | 2018 | | | Case | | | | | | Special Makeup Fx Artist Instructor-Clinical | | +--------+ + + + + | 01/15/ | Telephone | Primary Care | Charline Banks, | Care Coordination | | 2018 | | | Case | | | | | | Special Makeup Fx Artist Instructor-Clinical | | +--------+ + + + + [...] Case | | | | | | Special Makeup Fx Artist Instructor-Clinical | | +--------+ + + + + | 12/22/ | Telephone | Primary Care | Charline Banks, | Care Coordination | | 2018 | | | Case | | | | | | Special Makeup Fx Artist Instructor-Clinical | | +--------+ + + + + | 12/17/ | Clinical | Primary Care | Renato Marks, | | | 2018 | Support | | FUNERAL GREETER | | +--------+ + + + + | 12/14/ | Telephone | Primary Care | Charline Banks, | Transitions Of Care | | 2018 | | | Case | | | | | | Special Makeup Fx Artist Instructor-Clinical | | +--------+ + + + + | 12/10/ | Telephone | Primary Care | Charline Banks, | Care Coordination | | 2018 | | | Case | | | | | | Special Makeup Fx Artist Instructor-Clinical | | +--------+ + + + + [...] Case | | | | | | Special Makeup Fx Artist Instructor-Clinical | | +--------+ + + + + | 12/01/ | Telephone | Primary Care | Horacio Silvestre, | Hospice Home Visit | | 2019 | | | DO | | +--------+ + + + + | 11/27/ | Office | Primary Care | Renato Marks, | Preventative health | | 2018 | Visit | | FUNERAL GREETER | care (Primary Dx); | | | [...] hyperglycemia | | | | | | ([facility]) | +--------+ + + + + | 11/23/ | Telephone | Primary Care | Charline Banks, | Care Coordination | | 2018 | | | Case | | | | | | Special Makeup Fx Artist Instructor-Clinical | | +--------+ + + + + [...] [place] | | | | | | [address] | | | | | | [phone] | | | | | | | | +--------+---------+ + + + | 02/26/ | Office | Urology | Lillie Fowler | | | 2018 | Visit | | [address] | | | | | | [address] | | | | | | [place] | | | | | | [address] | | | | | | [phone] | | | | | | | | +--------+---------+ + + + | 03/16/ | Office | Neurology | Theresa, | | | 2018 | Visit | | [address] | | | | | [address] [place], | | | | | | [place] [address] | | | | | | [phone] | | | | | | | | +--------+---------+ + + + | 04/12/ | Office | Primary Care | Massimo Ramos | | | 2019 | Visit | | MD Fer [address] | | | | | | [place] | | | | | | [address] | | | | | | | | +--------+---------+ + + + | 10/03/ | Office | Neurology | Jalyn Carias MD | | | 2019 | Visit | | [address] | | | | | | [place] | | | | | | [address] | | | | | | | [...] | | care | | | Special Makeup Fx Artist Instructor-C | | | | | | [...] | | care | | | Special Makeup Fx Artist Instructor-C | | | | | | [...] | | care | | | Special Makeup Fx Artist Instructor-C | | | | | | [...] | | care | | | Special Makeup Fx Artist Instructor-C | | | | | | [...] | | [facility] | | 02/28/ | [id number] | | PreloadedImplanted: Qty: 1 on | | | MEDICAL | | 2019 | 0022 | | 04/28/2017 by Erlin, | | | [employer] - | | | /[id number] | | Tay Buckner MD at [facility] | | | [place] | | | [address] | | [facility] | | | | | | / [...] J?MRN: | | | | | | [id number] | | | [id number] | | | riteri | | | [...] | | | [place] | | | Sales Porter | | | al | | | [...] | | | [place] | | | [place] | | | al | | | [...] | | | [place] | | | [place] | | | al | | | [...] | | | [place] | | | [place] | | | al | | | [...] | | | [place] | | | [place] | | | al | | | [...] | | | [place] | | | [place] | | | al | | | [...] | | | [place] | | | Sales Porter | | | al | | | [...] J?MRN: | | | | | | [id number] | | | [id number] | | | riteri | | | [...] | | | [place] | | | Sales Porter | | | al | | | [...] | | | [place] | | | Sales Porter | | | al | | | [...] | | | [place] | | | Sales Porter | | | al | | | [...] | | | [place] | | | Sales Porter | | | al | | | [...] | | | [place] | | | Sales Porter | | | al | | | [...] | | | [place] | | | Sales Porter | | | al | | | [...] | | | [place] | | | Sales Porter | | | al | | | [...] | + +--------+ + + + | IN INJECT TRIGGER | Routin | 12/03/2018 | [...] - 1.030 | [facility] | | | [place] | | | [facility] | | | [...] + + | [facility] | [address] | [place] [address] | [phone] | | [facility]ITAL [facility] | | | [...] the attending | LABORATORY | | physician. Uluc-lgc-goktzil drugs may cross react with some methods. [...] + + | [facility] | [address] | [place] [address] | [phone] | | HOSPITAL [facility] | | | [...] + + | [facility] | [address] | [place] [address] | [phone] | | HOSPITAL [facility] | | | [...] + + | [facility] | [address] | [place] [address] | [phone] | | HOSPITAL [facility] | | | [...] + + | [facility] | [address] | [place] [address] | [phone] | | H[facility]PITAL [facility] | | | [...] | mL/min/1.73m2 | [facility] | | | [facility] | RATE,ESTIMATED | | HOSPITAL | | | | mL/min/1.79z3Ynbz than | | LABORATORY | | | [...] + + | [facility] | [address] | [place] [address] | [phone] | | HOSPITAL [facility] | | | [...] + + | [facility] | [address] | [place] [address] | [phone] | | HOSPITAL [facility] | | | [...] | mL/min/1.73m2 | [facility] | | | [facility] | | | HOSP[facility] | | | [...] + + | [facility] | [address] | [place] [address] | [phone] | | HOSPITAL [facility] | | | [...] + + | [facility] | [address] | [place] [address] | [phone] | | HOSPITAL LAB[facility] | | | [...] + + | [facility] | [address] | [place] [address] | [phone] | | HOSPITAL [facility] | | | [...] + + | [facility] | [address] | [place] [address] | [phone] | | HOSPITAL [facility] | | | [...] + + | [facility] | [address] | [place] [address] | [phone] | | HOSPITAL [facility] | | | [...] + + | [facility] | [address] | [place] [address] | [phone] | | HOSPITAL [facility] | | | [...] + + | [facility] | [address] | [place] [address] | [phone] | | HOSPITAL LAB[facility] | | | [...] + + | Performing | Address | City/State/[facility] | Phone Number | | Organization | | | | + + + + + | [facility] | [address] | [place] [address] | [phone] | | H[facility] | | | [...] + + | [facility] | [address] | [place] [address] | [phone] | | H[facility]PITAL [facility] | | | [...] + + | [facility] | [address] | [place] [address] | [phone] | | H[facility]PITAL [facility] | | | [...] + + | [facility] | [address] | [place] [address] | [phone] | | HOSPITAL [facility] | | | [...] + + | PSA, TOTAL PERFORMED ON Make My plateAUR XP. TEST RESULT MAY NOT | [facility] | | CORRELATE WITH OTHER INSTRUMENTS. | HOSPITAL | | | LABORATORY | + + + + + + + + | Performing | Address | City/State/Zipcode | Phone Number | | Organization | | | | + + + + + | [facility] | [address] | [place] [address] | [phone] | | HOSPITAL [facility] | | | [...] JALYN CARIAS M.D. | | | Neurologist [phone] Electronically signed NOTE: Part of | | | this report was transcribed using voice recognition | | | software. Every effort was made to ensure | | | accuracy. However, inadvertent computerize | | | cloth reeler errors may be present | | + [...] +---------+--------+ | [employer] | [place] | [id number] | 01/29/ | | | Indemn | | | CHOICE | | 2017-P | | | ity | | | PC3 | | resent | | | | + +--------+ +--------+ +---------+--------+ | [employer]MIN | [place] | [id number] | 01/29/ | | | Indemn | | | NS | | 2016-P | | | ity | | | ADMIN | | resent | | | | | | [place] | | | | | | | | [place] | | | | | | + +--------+ +--------+ +---------+--------+ | MEDICARE | MEDICA | [id number] | 03/19/ | [phone] | | Medica | | | RE | | 2016-P | 5 | | re | | | PART A | | resent | | | | + +--------+ +--------+ +---------+--------+ | MEDICARE | MEDICA | [id number] | 06/06/19 | [phone] | | Medica | | | RE | | 04-Pre | 5 | | re | | | PART A | | sent | | | | + +--------+ +--------+ +---------+--------+ | [employer]MIN | [place] | [id number] | | | | Indemn | | [...] | | al/Fam | | 1941 | [phone] | [place] [address] | | | julio | | | 2 (Home) | | + +--------+ +--------+ + + | Geraldo Mcfadden | Person | Self | [birth year] | | [address] [place], | | | al/Fam | | 1941 | [phone] | [place] [address] | | | julio | | | 2 (Home) | | + +--------+ +--------+ + + Advance Directives + + + + + | Type | Date Recorded | Patient | Explanation | | | | Seismic Interpreter | | + + + + + | Power of | | | | | Vending Machine Attendant | | | | + + + [...]
--- OUTSIDE RECORDS SUMMARY | ~2019-02-17 | XMS | Encounter Summary ---
Demographics + + + | Address | [address] | | | [place] [address] | + + + | Home Phone [...] Team Providers + +------+ + | Care Crystal Grower Name | Role | Phone | [...] | [address] [place], [place] | [place] [address] | | | | | [address] | [phone] | | | | | [phone] | | | +--------+ + + + [...] [place] | | | | | | [address] | | | | | | [phone] | | | | | | | | +--------+---------+ + + + | 02/26/ | Office | Urology | Lillie Fowler | | | 2018 | Visit | | [address]IE [address] | | | | | | [address] | | | | | | [place] | | | | | | [address] | | | | | | [phone] | | | | | | | | +--------+---------+ + + + | 03/16/ | Office | Neurology | Theresa, | | | 2018 | Visit | | [address] | | | | | [address] [place], | | | | | | [place] [address] | | | | | | [phone] | | | | | | | | +--------+---------+ + + + | 04/12/ | Office | Primary Care | Massimo Ramos | | | 2019 | Visit | | MD Fer [address] | | | | | | [place] | | | | | | [address] | | | | | | | | +--------+---------+ + + + | 10/03/ | Office | Neurology | Fabián Carias MD | | | 2019 | Visit | | [address] | | | | | | [place] | | | | | | [address] | | | | | | | [...] | | | care | | | Movie Theater Manager-C | | | | | | [...] | | | care | | | Movie Theater Manager-C | | | | | | [...] | | | care | | | Movie Theater Manager-C | | | | | | [...] | | | care | | | Movie Theater Manager-C | | | | | | [...]
--- OUTSIDE RECORDS SUMMARY | ~2019-02-17 | XMS | Encounter Summary ---
Demographics + + + | Address | [address] | | | [place] [address] | + + + | Home Phone [...] Team Providers + +------+ + | Care Paraffin Plant Operator Name | Role | Phone [...] Medication Refill | | 2018 | | [facility] | DO [address] | | | | | [facility] [address] | [facility] [place] | | | | | [address] [place], | [address] | | | | | [place] [address] | [phone] | | | | | [phone] | | | +--------+ + + + [...] [place] | | | | | | [address] | | | | | | [phone] | | | | | | | | +--------+---------+ + + + | 02/26/ | Office | Urology | Lillie Fowler | | | 2018 | Visit | | [address]IE [address] | | | | | | [address] | | | | | | [place], [place] | | | | | | [address] | | | | | | [phone] | | | | | | | | +--------+---------+ + + + | 03/16/ | Office | Neurology | Theresa, | | | 2018 | Visit | | [address] | | | | | | [address] [place], | | | | | | [place] [address] | | | | | | [phone] | | | | | | | | +--------+---------+ + + + | 04/12/ | Office | Primary Care | Massimo Ramos Pedro Luis | | | 2019 | Visit | | MD Fer [address] | | | | | | [place] | | | | | | [address] | | | | | | | | +--------+---------+ + + + | 10/03/ | Office | Neurology | Fabián Carias MD | | | 2019 | Visit | | [address] | | | | | | [place] | | | | | | [address] | | | | | | | [...] | | care | | | Doll Wigs Hackler-C | | | | | | | [...] | | care | | | Doll Wigs Hackler-C | | | | | | | [...] | | care | | | Doll Wigs Hackler-C | | | | | | | [...] | | care | | | Doll Wigs Hackler-C | | | | | | | [...]
--- OUTSIDE RECORDS SUMMARY | ~2019-02-17 | XMS | Encounter Summary ---
Demographics + + + | Address | [address] | | | [place] [address] | + + + | Home Phone [...] Team Providers + +------+ + | Care Ice Cream Freezer Assistant Name | Role | Phone | [...] [place] | | | | | | [address] | [address] | | | | | | Phone: | Phone: | | | | | | [phone] | [phone] | | | | | | Fax: | Fax: | | | | | | [phone] | [phone] | + + + + + + [...] | | [address] [place], | [address] | | | | | [place] [address] | [phone] | | | | | [phone] | | | +--------+ + + + [...] [place] | | | | | | [address] | | | | | | [phone] | | | | | | | | +--------+---------+ + + + | 02/26/ | Office | Urology | Sergio Fowlera | | | 2018 | Visit | | [address] | | | | | [address] | | | | | | [place] | | | | | | [address] | | | | | | [phone] | | | | | | | | +--------+---------+ + + + | 03/16/ | Office | Neurology | Theresa, | | | 2018 | Visit | | [address] | | | | | | [address] [place], | | | | | | [place] [address] | | | | | | [phone] | | | | | | | | +--------+---------+ + + + | 04/12/ | Office | Primary Care | Massimo Ramos | | | 2019 | Visit | | MD Fer [address] | | | | | | [place] | | | | | | [address] | | | | | | | | +--------+---------+ + + + | 10/03/ | Office | Neurology | Fabián Carias MD | | | 2020 | Visit | | [address] | | | | | | [place] | | | | | | [address] | | | | | | | [...] | | | care | | | Pushcart Peddler-C | | | | | | | [...] | | | care | | | Pushcart Peddler-C | | | | | | | [...] | | | care | | | Pushcart Peddler-C | | | | | | | [...] | | | care | | | Pushcart Peddler-C | | | | | | | [...]
--- OUTSIDE RECORDS SUMMARY | ~2019-02-17 | XMS | Encounter Summary ---
Demographics + + + | Address | [address] | | | [place] [address] | + + + | Home Phone [...] Team Providers + +------+ + | Care In Flight Refueling Operator Name | Role | Phone | [...] | | | | [place], [place] | [place] [address] | | | | | [address] | [phone] | | | | | [phone] | | | +--------+ + + + [...] [place] | | | | | | [address] | | | | | | [phone] | | | | | | | | +--------+---------+ + + + | 02/26/ | Office | Urology | Lillie Fowler | | | 2018 | Visit | | [address] | | | | | | [address] | | | | | | [place], [place] | | | | | | [address] | | | | | | [phone] | | | | | | | | +--------+---------+ + + + | 03/16/ | Office | Neurology | Theresa, | | | 2018 | Visit | | [address] | | | | | [address] [place], | | | | | | [place] [address] | | | | | | [phone] | | | | | | | | +--------+---------+ + + + | 04/12/ | Office | Primary Care | Massimo Ramos | | | 2019 | Visit | | MD Fer [address] | | | | | | [place] | | | | | | [address] | | | | | | | | +--------+---------+ + + + | 10/03/ | Office | Neurology | Fabián Carias MD | | | 2019 | Visit | | [address] | | | | | | [place] | | | | | | [address] | | | | | | | [...] | | care | | | Clinical Liaison-C | | | | | | [...] | | care | | | Clinical Liaison-C | | | | | | [...] | | care | | | Clinical Liaison-C | | | | | | [...] | | care | | | Clinical Liaison-C | | | | | | | linical | + +--------+ +---+-----+ + + + | Note: Pt will | | check CBG's daily x1 | | Pt will take Lantis as | | prescribed | + + documented as of this encounter Visit Diagnoses Not on filedocumented in this encounter"
--- OUTSIDE RECORDS SUMMARY | ~2019-02-17 | XMS | Encounter Summary ---
Demographics + + + | Address | [address] | | | [place] [address] | + + + | Home Phone [...] Team Providers + +------+ + | Care Chalk 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 Name | Role | Phone | + +------+ + | Horacio Silvestre DO | PCP | | + +------+ + Reason for Visit + + + | Reason | Comments | + + + | Referral (Follow up) | admissions coordinator | + + + Encounter Details +--------+ + + + + | Date | Type | Department | Care Team | Description | +--------+ + + + + | 05/06/ | Telephone | [facility] | Horacio Silvestre, | Referral (Follow up) | | 2018 | | [facility] | [facility] [address] [place] | (admissions coordinator) | | | | [facility] [address] | [facility] [place] | | | | | [address] [place] [place], | [address] | | | | | [place] [address] | [phone] | | | | | [phone] | | | +--------+ + + + [...] [place] | | | | | | [address] | | | | | | [phone] | | | | | | | | +--------+---------+ + + + | 02/26/ | Office | Urology | Lillie Fowler | | | 2018 | Visit | | [address] | | | | | | [address] | | | | | | [place], [place] | | | | | | [address] | | | | | | [phone] | | | | | | | | +--------+---------+ + + + | 03/16/ | Office | Neurology | Theresa, | | | 2018 | Visit | | [address] | | | | | | [address] [place], | | | | | | [place] [address] | | | | | | [phone] | | | | | | | | +--------+---------+ + + + | 04/12/ | Office | Primary Care | Massimo Ramos | | | 2019 | Visit | | MD Fer [address] | | | | | | [place] | | | | | | [address] | | | | | | | | +--------+---------+ + + + | 10/03/ | Office | Neurology | Fabián Carias MD | | | 2019 | Visit | | [address] | | | | | | [place] | | | | | | [address] | | | | | | | [...] | | | care | | | Demolition Expert-C | | | | | | [...] | | | care | | | Demolition Expert-C | | | | | | [...] | | | care | | | Demolition Expert-C | | | | | | [...] | | | care | | | Demolition Expert-C | | | | | | | linical | + +--------+ +---+-----+ + + + | Note: Pt will | | check CBG's daily x1 | | Pt will take Lantis as | | prescribed | + + documented as of this encounter Visit Diagnoses Not on filedocumented in this encounter"
--- OUTSIDE RECORDS SUMMARY | ~2019-02-17 | XMS | Encounter Summary ---
Demographics + + + | Address | [address] | | | [place] [address] | + + + | Home Phone [...] Providers + +------+ + | Care Medical Record Assistant Name | Role | Phone | [...] | [place], [place] | [place] [address] | | | | | [address] | [phone] | | | | | [phone] | | | +--------+ + + + [...] be sent through Care Everywhere.Skin Infection, Cellulitis (I[place]ic)documented in this encounter Medications at Time of [...] | | | | use of insulin ([facility]) | | | | | [...] | | | | use of insulin ([facility]) | | | | | [...] | | | | | | disease, prison | | | | | | | [...] [place] | | | | | | [address] | | | | | | [phone] | | | | | | | | +--------+---------+ + + + | 02/26/ | Office | Urology | Lillie Fowler | | | 2018 | Visit | | [address] | | | | | | [address] | | | | | | [place], [place] | | | | | | [address] | | | | | | [phone] | | | | | | | | +--------+---------+ + + + | 03/16/ | Office | Neurology | Theresa, | | | 2018 | Visit | | [address] | | | | | | [address] [place], | | | | | | [place] [address] | | | | | | [phone] | | | | | | | | +--------+---------+ + + + | 04/12/ | Office | Primary Care | Massimo Ramos | | | 2019 | Visit | | MD Fer [address] | | | | | | [place], [place] | | | | | | [address] | | | | | | | | +--------+---------+ + + + | 10/03/ | Office | Neurology | Fabián Carias MD | | | 2020 | Visit | | [address] | | | | | | [place] | | | | | | [address] | | | | | | | [...] | | care | | | Cook Fish And Chips-C | | | | | | | [...] | | care | | | Cook Fish And Chips-C | | | | | | | [...] | | care | | | Cook Fish And Chips-C | | | | | | | [...] | | care | | | Cook Fish And Chips-C | | | | | | | [...] J?MRN: | | | | | | [id number] | | | [id number] | | | ecurit | | | [...] [address] | [place] [address] | [phone] | | HOSPITAL LAB[facility]ATORY | | | | + + + + + documented in this encounter Visit Diagnoses + + | Diagnosis | + + | Cellulitis of right lower extremity - Primary Cellulitis and abscess of leg, except | | foot | + + documented in this encounter
--- OUTSIDE RECORDS SUMMARY | ~2019-02-17 | XMS | Encounter Summary ---
Demographics + + + | Address | [address] | | | [place] [address] | + + + | Home Phone [...] Team Providers + +------+ + | Care Template Fitter Name | Role | Phone | [...] | | | | | COLO | [address] | [place], [place] | | | | | | Phone: | [address] | | | | | | [phone] | Phone: | | | | | | Fax: | [phone] | | | | | | [phone] | Fax: | | | | | | | [phone] | + + + + + + [...] | Diagnoses | [facility] | [facility] | | | | | | [place] | Regional | | | | | Office/outpa | MEDICAL | Primary Care | | | | | tient visit | CENTER [address] | [address] | | | | | est | [address] | [place] | | | | | [address], | [address] | [address] | | | | | Authorized | [address] [place] | Phone: | | | | | For any | [place], [place] | [phone] | | | | | clinically | [address] | Fax: | | | | | necessary | Phone: | [phone] | | | | | Visits for | [phone] | | | | | | 365 days | Fax: | | | | | | AUTH NO: | [phone] | | | | | | [id number] | | | +--------+--------+ + + + + Encounter Details +--------+---------+ + + + | Date | Type | Department | Care Team | Description | +--------+---------+ + + + | 09/09/ | Office | [place] [facility] | Horacio Silvestre, | Type 2 diabetes | | 2019 | Visit | [facility] | DO [address] [place] | mellitus with | | | | [facility] | [facility], [place] | diabetic | | | | [address] [place], | [address] | polyneuropathy, with | | | | [place] [address] | [phone] | long-term current | | | | [phone] | | use of insulin (HCC) | [...] of | | | | | | big sandy coronary | | | | | | artery of big sandy | | | | | | heart without angina | | | | | | pectoris; Insomnia | | | | | | secondary to chronic | | | | | | pain; residential | | | | | | [...] Surgery - AMB Referral 4. 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 Insomnia secondary to chronic pain - traZODone (DESYREL) 100 mg tablet; Take 1 tablet by mouth nightly. 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 Current [...] REMOVAL; Surgeon: Tay Kern MD; Location: [facility] SURGERY [...] [place] | | | | | | [address] | | | | | | [phone] | | | | | | | | +--------+---------+ + + + | 02/26/ | Office | Urology | Lillie Fowler | | | 2018 | Visit | | [address] | | | | | | [address] | | | | | | [place], [place] | | | | | | [address] | | | | | | [phone] | | | | | | | | +--------+---------+ + + + | 03/16/ | Office | Neurology | Theresa, | | | 2018 | Visit | | [address] | | | | | | [address] [place], | | | | | | [place] [address] | | | | | | [phone] | | | | | | | | +--------+---------+ + + + | 04/12/ | Office | Primary Care | Massimo Ramos | | | 2019 | Visit | | MD Fer [address] | | | | | | [address] [place], [place] | | | | | | [address] | | | | | | | | +--------+---------+ + + + | 10/03/ | Office | Neurology | Fabián Carias MD | | | 2020 | Visit | | [address] | | | | | | [place] | | | | | | [address] | | | | | | | [...] | | | care | | | Bolt Cutter-C | | | | | | [...] | | | care | | | Bolt Cutter-C | | | | | | [...] | | | care | | | Bolt Cutter-C | | | | | | [...] | | | care | | | Bolt Cutter-C | | | | | | [...] hemorrhage) | + + | 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
--- OUTSIDE RECORDS SUMMARY | ~2019-02-17 | XMS | Encounter Summary ---
Demographics + + + | Address | [address] | | | [place] [address] | + + + | Home Phone [...] Team Providers + +------+ + | Care Scrap Metal Collector Name | Role | Phone | [...] | | [address] [place], | [address] | | | | | [place] [address] | [phone] | | | | | [phone] | | | +--------+ + + + [...] [place] | | | | | | [address] | | | | | | [phone] | | | | | | | | +--------+---------+ + + + | 02/26/ | Office | Urology | Lillie Fowler | | | 2018 | Visit | | [address] | | | | | | [address] | | | | | | [place], [place] | | | | | | [address] | | | | | | [phone] | | | | | | | | +--------+---------+ + + + | 03/16/ | Office | Neurology | Theresa, | | | 2018 | Visit | | [address] | | | | | | [address] [place], | | | | | | [place] [address] | | | | | | [phone] | | | | | | | | +--------+---------+ + + + | 04/12/ | Office | Primary Care | Massimo Ramos | | | 2019 | Visit | | MD Fer [address] | | | | | | [address] [place], [place] | | | | | | [address] | | | | | | | | +--------+---------+ + + + | 10/03/ | Office | Neurology | Fabián Carias MD | | | 2019 | Visit | | [address] | | | | | | [place] | | | | | | [address] | | | | | | | [...] Lifest | Coordinatio | | Yes | Joceyln, | | function and decrease | yle | n of | | | Charline Dos Santos, | | dehydration | | complex | | | Case | | | | care | | | Bleach Mixer-C | | | | | | [...] | | | care | | | Bleach Mixer-C | | | | | | [...] | | | care | | | Bleach Mixer-C | | | | | | [...] | | | care | | | Bleach Mixer-C | | | | | | | linical | + +--------+ +---+-----+ + + + | Note: Pt will | | check CBG's daily x1 | | Pt will take Lantis as | | prescribed | + + documented as of this encounter Visit Diagnoses Not on filedocumented in this encounter"
--- OUTSIDE RECORDS SUMMARY | ~2019-02-17 | XMS | Encounter Summary ---
Demographics + + + | Address | [address] | | | [place] [address] | + + + | Home Phone [...] Team Providers + +------+ + | Care Tugboat Operator Name | Role | Phone | [...] [facility] | DO [address] [place] | | | | | MEDICAL CLIN[facility] [address] | [facility], [place] | | | | | [address] [place], | [address] | | | | | [place] [address] | [phone] | | | | | [phone] | | | +--------+ + + + [...] [place] | | | | | | [address] | | | | | | [phone] | | | | | | | | +--------+---------+ + + + | 02/26/ | Office | Urology | Lillie Fowler | | | 2018 | Visit | | [address] | | | | | | [address] | | | | | | [place], [place] | | | | | | [address] | | | | | | [phone] | | | | | | | | +--------+---------+ + + + | 03/16/ | Office | Neurology | Theresa, | | | 2018 | Visit | | [address] | | | | | | [address] [place], | | | | | | [place] [address] | | | | | | [phone] | | | | | | | | +--------+---------+ + + + | 04/12/ | Office | Primary Care | Massimo Ramos Pedro Luis | | | 2019 | Visit | | MD Fer [address] | | | | | | [place] | | | | | | [address] | | | | | | | | +--------+---------+ + + + | 10/03/ | Office | Neurology | Fabián Carias MD | | | 2019 | Visit | | [address] | | | | | | [place] | | | | | | [address] | | | | | | | [...] | | | care | | | Pump House Technician-C | | | | | | [...] | | | care | | | Pump House Technician-C | | | | | | [...] | | | care | | | Pump House Technician-C | | | | | | [...] | | | care | | | Pump House Technician-C | | | | | | [...]
--- OUTSIDE RECORDS SUMMARY | ~2019-02-17 | XMS | Encounter Summary ---
Demographics + + + | Address | [address] | | | [place] [address] | + + + | Home Phone [...] Providers + +------+ + | Care Business Broker Name | Role | Phone | + +------+ + | Ryan Gutiérrez MD | PCP | | + +------+ + Encounter Details +--------+ + + + + | Date | Type | Department | Care Team | Description | +--------+ + + + + | 12/05/ | Hospital | [place] [facility] | Christ Quintero, | | | 2017 | Encounter | [facility] | DO [address] , | | | | | [address] | [place], [place] | | | | | [place], [place] | [address] | | | | | [address] | [phone] | | | | | [phone] | | | +--------+ + + + [...] [place] | | | | | | [address] | | | | | | [phone] | | | | | | | | +--------+---------+ + + + | 02/26/ | Office | Urology | Malcolm Lillie | | | 2018 | Visit | | [address] | | | | | | [address] | | | | | | [place], [place] | | | | | | [address] | | | | | | [phone] | | | | | | | | +--------+---------+ + + + | 03/16/ | Office | Neurology | Theresa, | | | 2018 | Visit | | [address] | | | | | | [address] [place], | | | | | | [place] [address] | | | | | | [phone] | | | | | | | | +--------+---------+ + + + | 04/12/ | Office | Primary Care | Massimo Ramos | | | 2019 | Visit | | MD Fer [address] | | | | | | [place] | | | | | | [address] | | | | | | | | +--------+---------+ + + + | 10/03/ | Office | Neurology | Fabián Carias MD | | | 2019 | Visit | | [address] | | | | | | [place] | | | | | | [address] | | | | | | | [...] | | care | | | Traffic Control Flagger-C | | | | | | | [...] | | care | | | Traffic Control Flagger-C | | | | | | | [...] | | care | | | Traffic Control Flagger-C | | | | | | | [...] | | care | | | Traffic Control Flagger-C | | | | | | | [...] in | | | multiple projections show [id number] articulation of the distal | | | [...] | dissociation suggest carpal instability.. JOB #: [id number] | | | Digitally Released by: Massimo [...] | | Films in multiple projections show [id number]-zufw articulation of the distal | | radius [...] | | | | | JOB #: [id number] | | Digitally Released by: Massimo Nunez | | | | | | Read By: MASSIMO NUNEZ MD | | Date: 12/05/2016 12:35 | | | + + documented in this encounter Visit Diagnoses Not on filedocumented in this encounter"
--- OUTSIDE RECORDS SUMMARY | ~2019-02-17 | XMS | Encounter Summary ---
Demographics + + + | Address | [address] | | | [place] [address] | + + + | Home Phone [...] Providers + +------+ + | Care Mold Design Engineer Name | Role | Phone [...] | | unspecified | [place], [place] | [address] Phone: | | | | | Procedures | [address] | [phone] | | | | | ER followup | Phone: | Fax: | | | | | | [phone] | [phone] | | | | | | Fax: | | | | | | | [phone] | | +--------+ + + + + [...] | [address] [place], [place] | [place] [address] | | | | | [address] | [phone] | | | | | [phone] | | | +--------+ + + + [...] [place] | | | | | | [address] | | | | | | [phone] | | | | | | | | +--------+---------+ + + + | 02/26/ | Office | Urology | Lillie Fowler | | | 2018 | Visit | | [address] | | | | | | [address] | | | | | | [place] | | | | | | [address] | | | | | | [phone] | | | | | | | | +--------+---------+ + + + | 03/16/ | Office | Neurology | Theresa, | | | 2018 | Visit | | [address] | | | | | | [address] [place], | | | | | | [place] [address] | | | | | | [phone] | | | | | | | | +--------+---------+ + + + | 04/12/ | Office | Primary Care | Massimo Ramos | | | 2019 | Visit | | MD Fer [address] | | | | | | [place] | | | | | | [address] | | | | | | | | +--------+---------+ + + + | 10/03/ | Office | Neurology | Fabián Carias MD | | | 2019 | Visit | | [address] | | | | | | [place] | | | | | | [address] | | | | | | | [...] | | care | | | Solar Energy Systems Designer-C | | | | | | [...] | | care | | | Solar Energy Systems Designer-C | | | | | | [...] | | care | | | Solar Energy Systems Designer-C | | | | | | [...] | | care | | | Solar Energy Systems Designer-C | | | | | | [...] J?MRN: | | | | | | [id number] | | | [id number] | | | ecent | | | [...] | | | com/t/ | | | [id number] | | | . For | | [...] | | | [place] | | | Print Developer | | | al | | [...] | | | ent/e5 | | | [id number] | | | -[id number] | | | [...] - 1.030 | [place] | | | [place] | | | [facility] | | | [...] + + | [place] [facility] | [address] | [place] [address] | [phone] | | [facility] | | | [...] + + | [place] [facility] | [address] | [place] [address] | [phone] | | H[facility]ITAL [facility] | | | [...] + + | [place] [facility] | [address] | [place] [address] | [phone] | | HOS[facility]ITAL [facility] | | | [...] + + | [place] [facility] | [address] | [place] [address] | [phone] | | [facility]ITAL [facility] | | | [...] | cutoff point for the diagnosis of AK is 0.8 ng/mL for the Troponin I | | | method. | | + + + + + + + + | Performing | Address | City/State/[facility] | Phone Number | | Organization | | | | + + + + + | [facility] | [address] | [place] [address] | [phone] | | H[facility]ITAL [facility] | | | [...] | mL/min/1.73m2 | [facility] | | | LITHUANIAN | RATE,ESTIMATED | | HOSPITAL | | | | mL/min/1.88f1Xqkh than | | LABORATORY | | | [...] + + | [place] [facility] | [address] | [place] [address] | [phone] | | HOSPITAL [facility] | | | [...] + + | [facility] [facility] | [address] | [place] [address] | [phone] | | HOS[facility]ITAL [facility] | | | | + + + + + ECG 12 lead (05/13/2018 10:10 AM PST) + + | Specimen | + + | | + + + + + | Narrative | Performed At | + + + | Heart Rate: 60 | [facility] | | bpmQRS Interval: 108 msQT Interval: 400 msQTC Interval: 400 msP Bell: | TRACEMASTER | | 34 degQRS Bell: -28 degT Wave Bell: 19 degP-R Interval: 196 msec- | | | OTHERWISE NORMAL ECG -SINUS RHYTHM [Remains]BORDERLINE | | | INTRAVENTRICULAR CONDUCTION DELAY [Now Present]SIGNIFICANT ECG CONTOUR | | | CHANGES | | |T Wave Bell: 19 deg | | |P-R Interval: 196 [...]
--- OUTSIDE RECORDS SUMMARY | ~2019-02-17 | XMS | Encounter Summary ---
Demographics + + + | Address | [address] | | | [place] [address] | + + + | Home Phone [...] Team Providers + +------+ + | Care Maintenance Service Technician Name | Role | Phone [...] Tereza KAUFFMAN | | | | | [phone] | [place] [address] | | +--------+ + + + + [...] [place] | | | | | | [address] | | | | | | [phone] | | | | | | | | +--------+---------+ + + + | 02/26/ | Office | Urology | Lillie Fowler | | | 2018 | Visit | | [address] | | | | | | [address] | | | | | | [place], [place] | | | | | | [address] | | | | | | [phone] | | | | | | | | +--------+---------+ + + + | 03/16/ | Office | Neurology | Theresa, | | | 2018 | Visit | | [address] | | | | | [address] [place], | | | | | | [place] [address] | | | | | | [phone] | | | | | | | | +--------+---------+ + + + | 04/12/ | Office | Primary Care | Massimo Ramos | | | 2019 | Visit | | MD Fer [address] | | | | | | [place] | | | | | | [address] | | | | | | | | +--------+---------+ + + + | 10/03/ | Office | Neurology | Fabián Carias MD | | | 2019 | Visit | | [address], [place] | | | | | | [place], [place] | | | | | | [address] | | | | | | | [...] | care | | | Director Of Clinical Education-C | | | | | | | [...] | care | | | Director Of Clinical Education-C | | | | | | | [...] | care | | | Director Of Clinical Education-C | | | | | | | [...] | care | | | Director Of Clinical Education-C | | | | | | | [...]
--- OUTSIDE RECORDS SUMMARY | ~2019-02-17 | XMS | Encounter Summary ---
Demographics + + + | Address | [address] | | | [place] [address] | + + + | Home Phone [...] Team Providers + +------+ + | Care Quality Assurance Calibrator Name | Role | Phone | + [...] Problem | | 2018 | | [facility] | DO [address] | | | | | MEDICAL CLIN[facility] [address] | [facility], [place] | | | | | [address] [place], | [address] | | | | | [place] [address] | [phone] | | | | | [phone] | | | +--------+ + + + [...] [place] | | | | | | [address] | | | | | | [phone] | | | | | | | | +--------+---------+ + + + | 02/26/ | Office | Urology | Lillie Fowler | | | 2018 | Visit | | [address] | | | | | | [address] | | | | | | [place], [place] | | | | | | [address] | | | | | | [phone] | | | | | | | | +--------+---------+ + + + | 03/16/ | Office | Neurology | Theresa, | | | 2018 | Visit | | [address] | | | | | | [address] [place], | | | | | | [place] [address] | | | | | | [phone] | | | | | | | | +--------+---------+ + + + | 04/12/ | Office | Primary Care | Massimo Ramos | | | 2019 | Visit | | MD Fer [address] | | | | | | [place] | | | | | | [address] | | | | | | | | +--------+---------+ + + + | 10/03/ | Office | Neurology | Fabián Carias MD | | | 2019 | Visit | | [address] | | | | | | [place] | | | | | | [address] | | | | | | | [...] | | | care | | | Bread Stacker-C | | | | | | [...] | | | care | | | Bread Stacker-C | | | | | | [...] | | | care | | | Bread Stacker-C | | | | | | [...] | | | care | | | Bread Stacker-C | | | | | | [...] - 1.030 | [place] | | | [place] | | | [facility] | | | [...] + + | [place] [facility] | [address] [facility] | [place] [address] | [phone] | | [facility] | | | | [...]
--- OUTSIDE RECORDS SUMMARY | ~2019-02-17 | XMS | Encounter Summary ---
Demographics + + + | Address | [address] | | | [place] [address] | + + + | Home Phone [...] Team Providers + +------+ + | Care Channel Rougher Name | Role | Phone | + [...] | | | [place] | [place] [address] | | | | | [address] | [phone] | | | | | [phone] | | | +--------+ + + + [...] [place] | | | | | | [address] | | | | | | [phone] | | | | | | | | +--------+---------+ + + + | 02/26/ | Office | Urology | Lillie Fowler | | | 2018 | Visit | | [address] | | | | | | [address] | | | | | | [place] | | | | | | [address] | | | | | | [phone] | | | | | | | | +--------+---------+ + + + | 03/16/ | Office | Neurology | Theresa, | | | 2018 | Visit | | [address] | | | | | | [address] [place], | | | | | | [place] [address] | | | | | | [phone] | | | | | | | | +--------+---------+ + + + | 04/12/ | Office | Primary Care | Massimo Ramos | | | 2019 | Visit | | MD Fer [address] | | | | | | [place] | | | | | | [address] | | | | | | | | +--------+---------+ + + + | 10/03/ | Office | Neurology | Fabián Carias MD | | | 2019 | Visit | | [address] | | | | | | [place] | | | | | | [address] | | | | | | | [...] | | | care | | | Care Consultant-C | | | | | | [...] | | | care | | | Care Consultant-C | | | | | | [...] | | | care | | | Care Consultant-C | | | | | | [...] | | | care | | | Care Consultant-C | | | | | | | linical | + +--------+ +---+-----+ + + + | Note: Pt will | | check CBG's daily x1 | | Pt will take Lantis as | | prescribed | + + documented as of this encounter Visit Diagnoses Not on filedocumented in this encounter"
--- OUTSIDE RECORDS SUMMARY | ~2019-02-17 | XMS | Encounter Summary ---
Demographics + + + | Address | [address] | | | [place] [address] | + + + | Home Phone [...] Team Providers + +------+ + | Care Trailhead Construction Worker Name | Role | Phone | [...] [address] | | | | | [place] [address] | | | | | | [phone] | | | +--------+ + + + [...] [place] | | | | | | [address] | | | | | | [phone] | | | | | | | | +--------+---------+ + + + | 02/26/ | Office | Urology | Lillie Fowler | | | 2018 | Visit | | [address] | | | | | | [address] | | | | | | [place] | | | | | | [address] | | | | | | [phone] | | | | | | | | +--------+---------+ + + + | 03/16/ | Office | Neurology | Theresa, | | | 2018 | Visit | | [address] | | | | | | [address] [place], | | | | | | [place] [address] | | | | | | [phone] | | | | | | | | +--------+---------+ + + + | 04/12/ | Office | Primary Care | Massimo Ramos | | | 2019 | Visit | | MD Fer [address] | | | | | | [place] | | | | | | [address] | | | | | | | | +--------+---------+ + + + | 10/03/ | Office | Neurology | Fabián Carias MD | | | 2019 | Visit | | [address] | | | | | | [place] | | | | | | [address] | | | | | | | [...] | | | care | | | Geology Faculty Member-C | | | | | [...] | | | care | | | Geology Faculty Member-C | | | | | [...] | | | care | | | Geology Faculty Member-C | | | | | [...] | | | care | | | Geology Faculty Member-C | | | | | [...]
--- OUTSIDE RECORDS SUMMARY | ~2019-02-17 | XMS | Encounter Summary ---
Demographics + + + | Address | [address] | | | [place] [address] | + + + | Home Phone [...] Team Providers + +------+ + | Care Plumbing Technician Name | Role | Phone | [...] Care | | 2018 | | [facility] | RN | | | | | MEDICAL CLIN[facility] [address] | | | | | | [address] [facility], | | | | | | [place] [address] | | | | | | [phone] | | | +--------+ + + + [...] [place] | | | | | | [address] | | | | | | [phone] | | | | | | | | +--------+---------+ + + + | 02/26/ | Office | Urology | Lillie Fowler | | | 2018 | Visit | | [address] | | | | | | [address] | | | | | | [place], [place] | | | | | | [address] | | | | | | [phone] | | | | | | | | +--------+---------+ + + + | 03/16/ | Office | Neurology | Theresa, | | | 2018 | Visit | | [address] | | | | | | [address] [place], | | | | | | [place] [address] | | | | | | [phone] | | | | | | | | +--------+---------+ + + + | 04/12/ | Office | Primary Care | Massimo Ramos | | | 2019 | Visit | | MD Fer [address] | | | | | | [place] | | | | | | [address] | | | | | | | | +--------+---------+ + + + | 10/03/ | Office | Neurology | Faibán Carias MD | | | 2019 | Visit | | [address] | | | | | | [place] | | | | | | [address] | | | | | | | [...] | | | care | | | Service Director-C | | | | | | [...] | | | care | | | Service Director-C | | | | | | [...] | | | care | | | Service Director-C | | | | | | [...] | | | care | | | Service Director-C | | | | | | | linical | + +--------+ +---+-----+ + + + | Note: Pt will | | check CBG's daily x1 | | Pt will take Lantis as | | prescribed | + + documented as of this encounter Visit Diagnoses Not on filedocumented in this encounter"
--- OUTSIDE RECORDS SUMMARY | ~2019-02-17 | XMS | Encounter Summary ---
Demographics + + + | Address | [address] | | | [place] [address] | + + + | Home Phone [...] Team Providers + +------+ + | Care Seo Coordinator Name | Role | Phone | [...] | | | | [place], [place] | [address] | | | | | [address] | [phone] | | | | | [phone] | | | +--------+ + + + [...] [place] | | | | | | [address] | | | | | | [phone] | | | | | | | | +--------+---------+ + + + | 02/26/ | Office | Urology | Lillie Fowler | | | 2018 | Visit | | [address] | | | | | | [address] | | | | | | [place] | | | | | | [address] | | | | | | [phone] | | | | | | | | +--------+---------+ + + + | 03/16/ | Office | Neurology | Theresa, | | | 2018 | Visit | | [address]ney [address] [place], | | | | | | [place] [address] | | | | | | [phone] | | | | | | | | +--------+---------+ + + + | 04/12/ | Office | Primary Care | Massimo Ramos | | | 2019 | Visit | | MD Fer [address] | | | | | | [address] [place] | | | | | | [address] | | | | | | | | +--------+---------+ + + + | 10/03/ | Office | Neurology | Fabián Carias MD | | | 2019 | Visit | | [address] | | | | | | [place] | | | | | | [phone] | | | | | | | [...] | | | care | | | [employer] | | | | | | [...] | | | care | | | [employer] | | | | | | [...] | | | care | | | [employer] | | | | | | [...] | | | care | | | [employer] | | | | | | [...]
--- OUTSIDE RECORDS SUMMARY | ~2019-02-17 | XMS | Encounter Summary ---
Demographics + + + | Address | [address] | | | [place] [address] | + + + | Home Phone [...] Providers + +------+ + | Care Rug Setter [place] Name | Role | Phone | + [...] Appointment Question | | 2019 | | [facility] | [address] [place] | | | | | MEDICAL CLIN[facility] [address] | [facility], [place] | | | | | [address] [place], | [address] | | | | | [place] [address] | [phone] | | | | | [phone] | | | +--------+ + + + [...] [place] | | | | | | [address] | | | | | | [phone] | | | | | | | | +--------+---------+ + + + | 02/26/ | Office | Urology | Lillie Fowler | | | 2019 | Visit | | [address]IE [address] | | | | | | [address] | | | | | | [place], [place] | | | | | | [address] | | | | | | [phone] | | | | | | | | +--------+---------+ + + + | 03/16/ | Office | Neurology | Theresa, | | | 2018 | Visit | | [address] | | | | | | [address] [place], | | | | | | [place] [address] | | | | | | [phone] | | | | | | | | +--------+---------+ + + + | 04/12/ | Office | Primary Care | Richard Massimo Hsi | | | 2019 | Visit | | [address] | | | | | | [place] | | | | | | [address] | | | | | | | | +--------+---------+ + + + | 10/03/ | Office | Neurology | Fabián Carias MD | | | 2019 | Visit | | [address] | | | | | | [place] | | | | | | [address] | | | | | | | [...] | | | care | | | Plumber'S Helper-C | | | | | | [...] | | | care | | | Plumber'S Helper-C | | | | | | [...] | | | care | | | Plumber'S Helper-C | | | | | | [...] | | | care | | | Plumber'S Helper-C | | | | | | | linical | + +--------+ +---+-----+ + + + | Note: Pt will | | check CBG's daily x1 | | Pt will take Lantis as | | prescribed | + + documented as of this encounter Visit Diagnoses Not on filedocumented in this encounter"
--- OUTSIDE RECORDS SUMMARY | ~2019-02-17 | XMS | Encounter Summary ---
Demographics + + + | Address | [address] | | | [place] [address] | + + + | Home Phone [...] Team Providers + +------+ + | Care Time Analysis Clerk Name | Role | Phone | [...] | | | CENTER [address] | [facility] | | | | | [address] [place], [place] | [place] [address] | | | | | [address] | [phone] | | | | | [phone] | | | +--------+ + + + [...] [place] | | | | | | [address] | | | | | | [phone] | | | | | | | | +--------+---------+ + + + | 02/26/ | Office | Urology | Lillie Fowler | | | 2018 | Visit | | [address] | | | | | | [address] | | | | | | [place] | | | | | | [address] | | | | | | [phone] | | | | | | | | +--------+---------+ + + + | 03/16/ | Office | Neurology | Theresa, | | | 2018 | Visit | | [address] | | | | | | [address] [place], | | | | | | [place] [address] | | | | | | [phone] | | | | | | | | +--------+---------+ + + + | 04/12/ | Office | Primary Care | Massimo Ramos | | | 2019 | Visit | | [address] | | | | | | [place] | | | | | | [address] | | | | | | | | +--------+---------+ + + + | 10/03/ | Office | Neurology | Fabián Carias MD | | | 2019 | Visit | | [address] | | | | | | [place] | | | | | | [address] | | | | | | | [...] | | | care | | | Calcine Furnace Tender-C | | | | | | [...] | | | care | | | Calcine Furnace Tender-C | | | | | | [...] | | | care | | | Calcine Furnace Tender-C | | | | | | [...] | | | care | | | Calcine Furnace Tender-C | | | | | | | linical | + +--------+ +---+-----+ + + + | Note: Pt will | | check CBG's daily x1 | | Pt will take Lantis as | | prescribed | + + documented as of this encounter Visit Diagnoses Not on filedocumented in this encounter"
--- OUTSIDE RECORDS SUMMARY | ~2019-02-17 | XMS | Encounter Summary ---
Demographics + + + | Address | [address] | | | [place] [address] | + + + | Home Phone [...] Team Providers + +------+ + | Care Ten Pin Bowling Centre Manager Name | Role | Phone | [...] | [facility] | [address] | (pain medication ) | | | | MEDICAL CLINIC [address] | [facility] [place] | | | | | [address] [place], | [address] | | | | | [place] [address] | [phone] | | | | | [phone] | | | +--------+--------+ + + + [...] [place] | | | | | | [address] | | | | | | [phone] | | | | | | | | +--------+---------+ + + + | 02/26/ | Office | Urology | Lillie Fowler | | | 2018 | Visit | | [address] | | | | | | [address] | | | | | | [place], [place] | | | | | | [address] | | | | | | [phone] | | | | | | | | +--------+---------+ + + + | 03/16/ | Office | Neurology | Theresa, | | | 2018 | Visit | | [address] | | | | | | [address] [place], | | | | | | [place] [address] | | | | | | [phone] | | | | | | | | +--------+---------+ + + + | 04/12/ | Office | Primary Care | Massimo Ramos | | | 2019 | Visit | | [address] | | | | | | [place] | | | | | | [address] | | | | | | | | +--------+---------+ + + + | 10/03/ | Office | Neurology | Fabián Carias MD | | | 2019 | Visit | | [address] | | | | | | [place] | | | | | | [address] | | | | | | | [...] | | | care | | | Bulk Plant Supervisor-C | | | | | | [...] | | | care | | | Bulk Plant Supervisor-C | | | | | | [...] | | | care | | | Bulk Plant Supervisor-C | | | | | | [...] | | | care | | | Bulk Plant Supervisor-C | | | | | | [...]
--- OUTSIDE RECORDS SUMMARY | ~2019-02-17 | XMS | Encounter Summary ---
Demographics + + + | Address | [address] | | | [place] [address] | + + + | Home Phone [...] Team Providers + +------+ + | Care Pier Hand Helper Name | Role | Phone | [...] | DO [address] [place] | (FYI) | | | | MEDICAL CLINIC [address] | [facility], [place] | | | | | [address] [place], | [address] | | | | | [place] [address] | [phone] | | | | | [phone] | | | +--------+ + + + [...] [place] | | | | | | [address] | | | | | | [phone] | | | | | | | | +--------+---------+ + + + | 02/26/ | Office | Urology | Lillie Fowler | | | 2018 | Visit | | [address] | | | | | | [address] | | | | | | [place], [place] | | | | | | [address] | | | | | | [phone] | | | | | | | | +--------+---------+ + + + | 03/16/ | Office | Neurology | Theresa, | | | 2018 | Visit | | [address] | | | | | | [address] [place], | | | | | | [place] [address] | | | | | | [phone] | | | | | | | | +--------+---------+ + + + | 04/12/ | Office | Primary Care | Massimo Ramos Pedro Luis | | | 2019 | Visit | | [address] | | | | | | [place] | | | | | | [address] | | | | | | | | +--------+---------+ + + + | 10/03/ | Office | Neurology | Fabián Carias MD | | | 2019 | Visit | | [address] | | | | | | [place] | | | | | | [address] | | | | | | | [...] | | | care | | | Ski Instructor-C | | | | | | [...] | | | care | | | Ski Instructor-C | | | | | | [...] | | | care | | | Ski Instructor-C | | | | | | [...] | | | care | | | Ski Instructor-C | | | | | | [...]
--- OUTSIDE RECORDS SUMMARY | ~2019-02-17 | XMS | Encounter Summary ---
Demographics + + + | Address | [address] | | | [place] [address] | + + + | Home Phone [...] Team Providers + +------+ + | Care Cottonseed Meat Presser Name | Role | Phone | [...] | | [place] | [place] [address] | | | | | [address] | [phone] | | | | | [phone] | | | +--------+ + + + [...] [place] | | | | | | [address] | | | | | | [phone] | | | | | | | | +--------+---------+ + + + | 02/26/ | Office | Urology | Lillie Fowler | | | 2018 | Visit | | [address] | | | | | | [address] | | | | | | [place] | | | | | | [address] | | | | | | [phone] | | | | | | | | +--------+---------+ + + + | 03/16/ | Office | Neurology | Theresa, | | | 2018 | Visit | | [address] | | | | | | [address] [place], | | | | | | [place] [address] | | | | | | [phone] | | | | | | | | +--------+---------+ + + + | 04/12/ | Office | Primary Care | Massimo Ramos | | | 2019 | Visit | | [address] | | | | | | [place] | | | | | | [address] | | | | | | | | +--------+---------+ + + + | 10/03/ | Office | Neurology | Faibán Carias MD | | | 2019 | Visit | | [address] | | | | | | [place] | | | | | | [address] | | | | | | | [...] | | | care | | | Ignition Mechanic-C | | | | | | [...] | | | care | | | Ignition Mechanic-C | | | | | | [...] | | | care | | | Ignition Mechanic-C | | | | | | [...] | | | care | | | Ignition Mechanic-C | | | | | | [...] | | at 10:30 a.m. Job No.: [id number] Read By: | | | MASSIMO NUNEZ [...] | Jake at 10:30 a.m. Job No.: [id number] Read By: MASSIMO NUNEZ MD | | [...] | | | | | |Job No.: [id number] | | | |Read By: MASSIMO NUNEZ [...] 8:20 a.m. | | | Job No.: [id number] Read By: MASSIMO NUNEZ MD Released By: [...] | Jake at 8:20 a.m. Job No.: [id number] Read By: MASSIMO NUNEZ MD | | [...] | | | | | |Job No.: [id number] | | | |Read By: MASSIMO NUNEZ [...] cardiopulmonary | | | process. Job No.: [id number] Read By: MASSIMO Fung | | | [...] | of acute cardiopulmonary process. Job No.: [id number] Read By: MASSIMO Fung | | MD [...] | | | | | |Job No.: [id number] | | | |Read By: MASSIMO NUNEZ MD | | | |Released By: MASSIMO NUNEZ MD | |Date: 04/10/2015 10:11 | | | | | + + documented in this encounter Visit Diagnoses Not on filedocumented in this encounter"
--- OUTSIDE RECORDS SUMMARY | ~2019-02-17 | XMS | Encounter Summary ---
Demographics + + + | Address | [address] | | | [place] [address] | + + + | Home Phone [...] Team Providers + +------+ + | Care Computing Architect Name | Role | Phone | [...] | MEDICAL CLINIC [address] | [facility], [place] | | | | | [address] [place], | [address] | | | | | [place] [address] | [phone] | | | | | [phone] | | | +--------+--------+ + + + [...] [place] | | | | | | [address] | | | | | | [phone] | | | | | | | | +--------+---------+ + + + | 02/26/ | Office | Urology | Lillie Fowler | | | 2018 | Visit | | [address] | | | | | | [address] | | | | | | [place], [place] | | | | | | [address] | | | | | | [phone] | | | | | | | | +--------+---------+ + + + | 03/16/ | Office | Neurology | Theresa, | | | 2018 | Visit | | [address] | | | | | | [address] [place], | | | | | | [place] [address] | | | | | | [phone] | | | | | | | | +--------+---------+ + + + | 04/12/ | Office | Primary Care | Massimo Ramos | | | 2019 | Visit | | MD [address] | | | | | | [place] | | | | | | [address] | | | | | | | | +--------+---------+ + + + | 10/03/ | Office | Neurology | Fabián Carias MD | | | 2019 | Visit | | [address] | | | | | | [place] | | | | | | [address] | | | | | | | [...] care | | | Cloth Desizing Range Operator Chief-C | | | | | | [...] care | | | Cloth Desizing Range Operator Chief-C | | | | | | [...] care | | | Cloth Desizing Range Operator Chief-C | | | | | | [...] care | | | Cloth Desizing Range Operator Chief-C | | | | | | [...]
--- OUTSIDE RECORDS SUMMARY | ~2019-02-17 | XMS | Encounter Summary ---
Demographics + + + | Address | [address] | | | [place] [address] | + + + | Home Phone [...] Team Providers + +------+ + | Care Cot Assembler Name | Role | Phone | [...] | | [facility] | MD Fer [address] | | | | | MEDICAL CLIN[facility] [address] | [place] | | | | | [address] [place], | [address] | | | | | [place] [address] | | | | | | [phone] | | | +--------+ + + + [...] [place] | | | | | | [address] | | | | | | [phone] | | | | | | | | +--------+---------+ + + + | 02/26/ | Office | Urology | Lillie Fowler | | | 2018 | Visit | | [address] | | | | | | [address] | | | | | | [place], [place] | | | | | | [address] | | | | | | [phone] | | | | | | | | +--------+---------+ + + + | 03/16/ | Office | Neurology | Theresa, | | | 2018 | Visit | | [address] | | | | | | [address] [place], | | | | | | [place] [address] | | | | | | [phone] | | | | | | | | +--------+---------+ + + + | 04/12/ | Office | Primary Care | Massimo Ramos | | | 2019 | Visit | | MD [address] | | | | | | [place] | | | | | | [address] | | | | | | | | +--------+---------+ + + + | 10/03/ | Office | Neurology | Fabián Carias MD | | | 2019 | Visit | | [address] | | | | | | [place] | | | | | | [address] | | | | | | | [...] | | care | | | Sales Agent Business Services-C | | | | | | [...] | | care | | | Sales Agent Business Services-C | | | | | | [...] | | care | | | Sales Agent Business Services-C | | | | | | [...] | | care | | | Sales Agent Business Services-C | | | | | | [...]
--- OUTSIDE RECORDS SUMMARY | ~2019-02-17 | XMS | Encounter Summary ---
Demographics + + + | Address | [address] | | | [place] [address] | + + + | Home Phone [...] Providers + +------+ + | Care School Speech Language Pathologist Name | Role | Phone | [...] [facility] | DO [address] [place] | | | | | MEDICAL CLINIC [address] | [facility], [place] | | | | | [address] [place], | [address] | | | | | [place] [address] | [phone] | | | | | [phone] | | | +--------+ + + + [...] [place] | | | | | | [address] | | | | | | [phone] | | | | | | | | +--------+---------+ + + + | 02/26/ | Office | Urology | Lillie Fowler | | | 2018 | Visit | | [address] | | | | | | [address] | | | | | | [place], [place] | | | | | | [address] | | | | | | [phone] | | | | | | | | +--------+---------+ + + + | 03/16/ | Office | Neurology | Theresa, | | | 2018 | Visit | | [address] | | | | | | [address] [place], | | | | | | [place] [address] | | | | | | [phone] | | | | | | | | +--------+---------+ + + + | 04/12/ | Office | Primary Care | Massimo Ramos | | | 2019 | Visit | | MD [address] | | | | | | [place] | | | | | | [address] | | | | | | | | +--------+---------+ + + + | 10/03/ | Office | Neurology | Fabián Carias MD | | | 2019 | Visit | | [address] | | | | | | [place] | | | | | | [address] | | | | | | | [...] | | | care | | | Ophthalmic Aide-C | | | | | | | [...] | | | care | | | Ophthalmic Aide-C | | | | | | | [...] | | | care | | | Ophthalmic Aide-C | | | | | | | [...] | | | care | | | Ophthalmic Aide-C | | | | | | | [...]
--- OUTSIDE RECORDS SUMMARY | ~2019-02-17 | XMS | Encounter Summary ---
Demographics + + + | Address | [address] | | | [place] [address] | + + + | Home Phone [...] Team Providers + +------+ + | Care Microwave Technician Name | Role | Phone | [...] | | MEDICAL CLINIC [address] | [facility], [place] | | | | | [address] [place], | [address] | | | | | [place] [address] | [phone] | | | | | [phone] | | | +--------+ + + + [...] [place] | | | | | | [address] | | | | | | [phone] | | | | | | | | +--------+---------+ + + + | 02/26/ | Office | Urology | Lillie Fowler | | | 2018 | Visit | | [address] | | | | | | [address] | | | | | | [place], [place] | | | | | | [address] | | | | | | [phone] | | | | | | | | +--------+---------+ + + + | 03/16/ | Office | Neurology | Theresa, | | | 2018 | Visit | | [address] | | | | | | [address] [place], | | | | | | [place] [address] | | | | | | [phone] | | | | | | | | +--------+---------+ + + + | 04/12/ | Office | Primary Care | Massimo Ramos | | | 2019 | Visit | | MD Fer [address] | | | | | | [address] [place], [place] | | | | | | [address] | | | | | | | | +--------+---------+ + + + | 10/03/ | Office | Neurology | Fabián Carias MD | | | 2019 | Visit | | [address] | | | | | | [place] | | | | | | [address] | | | | | | | [...] | | | care | | | Caisson Worker-C | | | | | | [...] | | | care | | | Caisson Worker-C | | | | | | [...] | | | care | | | Caisson Worker-C | | | | | | [...] | | | care | | | Caisson Worker-C | | | | | | | linical | + +--------+ +---+-----+ + + + | Note: Pt will | | check CBG's daily x1 | | Pt will take Lantis as | | prescribed | + + documented as of this encounter Visit Diagnoses Not on filedocumented in this encounter"
--- OUTSIDE RECORDS SUMMARY | ~2019-02-17 | XMS | Encounter Summary ---
Demographics + + + | Address | [address] | | | [place] [address] | + + + | Home Phone [...] Team Providers + +------+ + | Care Microbiology Lab Assistant Name | Role | Phone | [...] | | | [address] [place], [place] | [place] [address] | | | | | [address] | [phone] | | | | | [phone] | | | +--------+ + + + [...] [place] | | | | | | [address] | | | | | | [phone] | | | | | | | | +--------+---------+ + + + | 02/26/ | Office | Urology | Lillie Fowler | | | 2018 | Visit | | [address] | | | | | | [address] | | | | | | [place], [place] | | | | | | [address] | | | | | | [phone] | | | | | | | | +--------+---------+ + + + | 03/16/ | Office | Neurology | Theresa, | | | 2018 | Visit | | [address] | | | | | | [address] [place], | | | | | | [place] [address] | | | | | | [phone] | | | | | | | | +--------+---------+ + + + | 04/12/ | Office | Primary Care | Massimo Ramos Pedro Luis | | | 2019 | Visit | | MD Fer [address] | | | | | | [place] | | | | | | [address] | | | | | | | | +--------+---------+ + + + | 10/03/ | Office | Neurology | Fabián Carias MD | | | 2019 | Visit | | [address] | | | | | | [place] | | | | | | [address] | | | | | | | [...] | | | care | | | Recruiter-C | | | | | | | [...] | | | care | | | Recruiter-C | | | | | | | [...] | | | care | | | Recruiter-C | | | | | | | [...] | | | care | | | Recruiter-C | | | | | | | linical | + +--------+ +---+-----+ + + + | Note: Pt will | | check CBG's daily x1 | | Pt will take Lantis as | | prescribed | + + documented as of this encounter Visit Diagnoses Not on filedocumented in this encounter"
--- OUTSIDE RECORDS SUMMARY | ~2019-02-17 | XMS | Encounter Summary ---
Demographics + + + | Address | [address] | | | [place] [address] | + + + | Home Phone [...] Providers + +------+ + | Care Marine Photographer Name | Role | Phone | [...] | Encounter | H[facility] XRAY [facility] | PATIENT ACCESS SPECIALIST [address] | | | | | [address] | [place] [address] | | | | | [place], [place] | [phone] | | | | | [address] | | | | | | [phone] | | | +--------+ + + + [...] | | | | | | disease, oil heaterman | | | | | | | [...] [place] | | | | | | [address] | | | | | | [phone] | | | | | | | | +--------+---------+ + + + | 02/26/ | Office | Urology | Lillie Fowler | | | 2018 | Visit | | [address] | | | | | | [address] | | | | | | [place] | | | | | | [address] | | | | | | [phone] | | | | | | | | +--------+---------+ + + + | 03/16/ | Office | Neurology | Theresa, | | | 2018 | Visit | | [address] | | | | | | [address] [place], | | | | | | [place] [address] | | | | | | [phone] | | | | | | | | +--------+---------+ + + + | 04/12/ | Office | Primary Care | Massimo Ramos | | | 2019 | Visit | | MD Fer [address] | | | | | | [address] [place], [place] | | | | | | [address] | | | | | | | | +--------+---------+ + + + | 10/03/ | Office | Neurology | Fabián Carias MD | | | 2019 | Visit | | [address] | | | | | | [place] | | | | | | [address] | | | | | | | [...] | | care | | | Electrical Assembly Technician-C | | | | | | [...] | | care | | | Electrical Assembly Technician-C | | | | | | [...] | | care | | | Electrical Assembly Technician-C | | | | | | [...] | | care | | | Electrical Assembly Technician-C | | | | | | [...]
--- OUTSIDE RECORDS SUMMARY | ~2019-02-17 | XMS | Encounter Summary ---
Demographics + + + | Address | [address] | | | [place] [address] | + + + | Home Phone [...] Providers + +------+ + | Care Senior Engineering Associate Name | Role | Phone | [...] | | | | [place] | [facility] | | | | | | [address] | [address] Phone: | | | | | | [address] | [phone] | | | | | | MARCELO [place] | Fax: | | | | | | [address] | [phone] | | | | | | Phone: | | | | | | | [phone] | | | | | | | Fax: | | | | | | | [phone] | | +--------+--------+ + + + + Encounter Details +--------+---------+ + + + | Date | Type | Department | Care Team | Description | +--------+---------+ + + + | 04/30/ | Office | [place] [facility] | Theresa, | Chronic neck and | | 2019 | Visit | HOSPITAL NEUROLOGY | Rylane, BOBCAT OPERATOR [address] | back pain (Primary | | | | CLINIC [address] [place], | Dx); Hx of transient | | | | [address] [place] [place], | [place] [address] | ischemic attack | | | | [place] [address] | [phone] | (TIA); Diabetic | | | | [phone] | | polyneuropathy | | | | [...] are taking other medicines. You may use cowa-zmq-jfwgwkn medicine to control pain, unless another pain [...] by your healthcare provider Date Last Reviewed: 10/06/201519995922-0236 [employer]. [address] [place] [address]. All righ ts reserved. This information is [...] are taking other medicines. You may use ubrg-gxb-vbxdynv medicine as directed on the bottle to [...] groin or genital area Date Last Reviewed: 10/06/201519993625-1890 [employer]. [address] [place] [address]. All righ ts reserved. This information is [...] the symptoms first appeared. Date Last Reviewed: 05/08/201719997218-4562 [employer]. [address] [place] [address]. All [facility] reserved. This information is not [...] you take. This includes prescription an d vkzf-zmh-wvusgkn medicines, vitamins, and herbs. Ask if any [...] speaking, walking, or seeing Date Last Reviewed: 06/05/201719994206-1534 [employer]. [address] [place] [address]. All righ ts reserved. This information is not intended as a substitute for professional medical care. Always follow your healthcare professional's instructions. documented in this encounter Progress Notes Hank Cardenas FNP - 04/30/2018 9:45 AM PST Patient: Geraldo Mcfadden Medical Record: [id number] Date of Services: 04/30/2018 Referring Doctor: Horacio [...] Right 04/28/2017 Procedure: CATARACT REMOVAL; Surgeon: Tay Kenr MD; Location: [facility] [place] [facility] Azul Azul Takedown MOHS SURGERY Left [...] are intact. There is no dysmetria on skdkfx-gy-qwzq and pyen-blkw-ecso. There are no abnormal or extraneous movements. [...] Gian Emu Oil, CBD oil and other oosy-nyf-wfzlmwl c sunni which can help with pain. [...] [place] | | | | | | [address] | | | | | | [phone] | | | | | | | | +--------+---------+ + + + | 02/26/ | Office | Urology | Lillie Fowler | | | 2018 | Visit | | [address] | | | | | | [address] | | | | | | [place] | | | | | | [address] | | | | | | [phone] | | | | | | | | +--------+---------+ + + + | 03/16/ | Office | Neurology | Theresa, | | | 2018 | Visit | | SHONDA Mckinney [address] | [address] [place], | | | | | | [place] [address] | | | | | | [phone] | | | | | | | | +--------+---------+ + + + | 04/12/ | Office | Primary Care | Massimo Ramos | | | 2019 | Visit | | MD Fer [address] | | | | | | [address] [place] | | | | | | [address] | | | | | | | | +--------+---------+ + + + | 10/03/ | Office | Neurology | Fabián Carias MD | | | 2019 | Visit | | [address] | | | | | | [place] | | | | | | [address] | | | | | | | [...] | | | care | | | Catering Attendant-C | | | | | | [...] | | | care | | | Catering Attendant-C | | | | | | [...] | | | care | | | Catering Attendant-C | | | | | | [...] | | | care | | | Catering Attendant-C | | | | | | [...]
--- OUTSIDE RECORDS SUMMARY | ~2019-02-17 | XMS | Encounter Summary ---
Demographics + + + | Address | [address] | | | [place] [address] | + + + | Home Phone [...] Team Providers + +------+ + | Care Returned Goods Inspector Name | Role | Phone | [...] on | [facility] | [address] [facility] | mail ) | | | | [facility] | [place], [place] | | | | | [place], | [address] | | | | | [place] [address] | [phone] | | | | | [phone] | | | +--------+ + + + [...] PSTOXYCODONE 5 MG SENT To: [facility] [place] ADDRESS: [address] [place] [address] TRACKING No: [id number] [...] [place] | | | | | | [address] | | | | | | [phone] | | | | | | | | +--------+---------+ + + + | 02/26/ | Office | Urology | Lillie Fowler | | | 2018 | Visit | | [address]ILLIE Lopez [address] | | | | | | [address] | | | | | | [place], [place] | | | | | | [address] | | | | | | [phone] | | | | | | | | +--------+---------+ + + + | 03/16/ | Office | Neurology | Theresa, | | | 2018 | Visit | | [address] | | | | | | [address] [place], | | | | | | [place] [address] | | | | | | [phone] | | | | | | | | +--------+---------+ + + + | 04/12/ | Office | Primary Care | Massimo Ramos Pedro Luis | | | 2019 | Visit | | MD Fer [address] | | | | | | [place] | | | | | | [address] | | | | | | | | +--------+---------+ + + + | 10/03/ | Office | Neurology | Fabián Carias MD | | | 2019 | Visit | | [address] | | | | | | [place] | | | | | | [address] | | | | | | | [...] | | | care | | | Venetian Blind Worker-C | | | | | | [...] | | | care | | | Venetian Blind Worker-C | | | | | | [...] | | | care | | | Venetian Blind Worker-C | | | | | | [...] | | | care | | | Venetian Blind Worker-C | | | | | | | linical | + +--------+ +---+-----+ + + + | Note: Pt will | | check CBG's daily x1 | | Pt will take Lantis as | | prescribed | + + documented as of this encounter Visit Diagnoses Not on filedocumented in this encounter"
--- OUTSIDE RECORDS SUMMARY | ~2019-02-17 | XMS | Encounter Summary ---
Demographics + + + | Address | [address] | | | [place] [address] | + + + | Home Phone [...] Team Providers + +------+ + | Care Foot Press Operator Name | Role | Phone [...] [address] | [address] [place] | ([facility]) (Primary Dx); | | | | [address] [place], [place] | [place] [address] | Sepsis, due to | | | | [address] | [phone] | unspecified organism | | | | [phone] | | ([facility]); Pneumonia of | | | | | [...] | | | | | in kidney ([facility]); | | | | | | Hypomagnesemia [...] disc disease), cervical (05/22/2013), Diabetes melli tus ([facility]), GERD (gastroesophageal reflux disease), Gout, Hiatal hernia, Hypertension, Melano ma ([facility]), Melanoma ([facility]), 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, left ([facility]), Neck pain, chronic (05/22/2013 ), Neuropathy, Paresthesias - both hands (05/22/2013), and Thyroid disease. Antimicrobials - Discontinued Antibiotic Dates of Therapy Zosyn 3.375g Once 07/24/2018 Historical Vancomycin dosing (previous & current encounter): Vancomycin Loading dose of 100 0mg Micro/Cultures/Diagnostics: Microbiology Results (Last 14 Days by Collected Date with Culture/Sensitivity) Procedure Component Value Units Date/Time Culture, Blood [[id number]] Collected: 07/24/18 1107 Order Status: Sent Lab Status: In process Updated: 07/24/18 1111 Specimen: Peripheral Blood Culture, Blood [[id number]] Collected: 07/24/18 1050 Order Status: Sent Lab Status: In process Updated: 07/24/18 1106 Specimen: Peripheral Blood Culture, MRSA [[id number]] Collected: 07/15/18 0036 Order Status: Completed Lab Status: Final result Updated: 07/17/18 0749 Specimen: Tissue from Nares Culture 1+ Staphylococcus aureus,Methicillin resistant (MRSA) Culture, Blood [[id number]] Collected: 07/14/18 1230 Order Status: Completed Lab Status: Final result Updated: 07/19/18 1321 Specimen: Peripheral Blood Culture No growth after 5 days incubation. Culture, Blood [[id number]] Collected: 07/14/18 1218 Order Status: Completed Lab [...] [place] | | | | | | [address] | | | | | | [phone] | | | | | | | | +--------+---------+ + + + | 02/26/ | Office | Urology | Lillie Fowler | | | 2019 | Visit | | [address]IE Lopez [address] | | | | | | [address] | | | | | | [place] | | | | | | [address] | | | | | | [phone] | | | | | | | | +--------+---------+ + + + | 03/16/ | Office | Neurology | Theresa, | | | 2018 | Visit | | [address] | | | | | | [address] [place], | | | | | | [place] [address] | | | | | | [phone] | | | | | | | | +--------+---------+ + + + | 04/12/ | Office | Primary Care | Massimo Ramos | | | 2019 | Visit | | MD Fer [address] | | | | | | [place] | | | | | | [address] | | | | | | | | +--------+---------+ + + + | 10/03/ | Office | Neurology | Fabián Carias MD | | | 2019 | Visit | | [address] | | | | | | [place] | | | | | | [address] | | | | | | | [...] | | | care | | | Bias 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 Helper-C | | | | | [...] | | | care | | | Bias 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 Helper-C | | | | | [...] | | | care | | | Bias 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 Helper-C | | | | | [...] | | | care | | | Bias 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 Helper-C | | | | | [...] - 1.030 | [place] | | | Happy | | | [facility] | | | [...] + + | [facility] [facility] | [address] | [place] [address] | [phone] | | [facility] | | | [...] + + | [place] [facility] | [address] | [place] [address] | [phone] | | [facility] | | | [...] + + | [place] [facility] | [address] | [place] [address] | [phone] | | [facility] | | | [...] Interval: 432 msP | TRACEMASTER | | Earle: 33 degQRS Earle: -19 degT Wave Earle: 33 degP-R Interval: 160 | | | msec- OTHERWISE NORMAL ECG -SINUS TACHYCARDIA [Now Present]BORDERLINE | | | LEFT AXIS DEVIATION [Remains]SIGNIFICANT RHYTHM CHANGES[Now Absent] | | | SINUS RHYTHM | | |T Wave Earle: 33 deg | | |P-R Interval: 160 [...] + + | [place] [facility] | [address] | [place] [address] | [phone] | | [facility] | | | [...] + + | [place] [facility] | [address] | [place] [address] | [phone] | | [facility] | | | [...] + + | [place] [facility] | [address] | [place] [address] | [phone] | | [facility] | | | [...] + + | [place] [facility] | [address] | [place] [address] | [phone] | | [facility] | | | [...] + + | [place] [facility] | [address] | [place] [address] | [phone] | | [facility] | | | [...] + + | [place] [facility] | [address] | [place] [address] | [phone] | | [facility] | | | [...] | cutoff point for the diagnosis of ID is 0.8 ng/mL for the Troponin I | | | method. | | + + + + + + + + | Performing | Address | City/State/Zipcode | Phone Number | | Organization | | | | + + + + + | [facility] | [address] | [place] [address] | [phone] | | [facility] | | | [...] | | HOSPITAL | | | | mL/min/1.80x7Xviv than | | LABORATORY | | | [...] + + | [facility] [facility] | [address] | [place] [address] | [phone] | | [facility] | | | [...] + + | [place] [facility] | [address] | [place] [address] | [phone] | | [facility] | | | [...]
--- OUTSIDE RECORDS SUMMARY | ~2019-02-17 | XMS | Encounter Summary ---
Demographics + + + | Address | [address] | | | [place] [address] | + + + | Home Phone [...] Providers + +------+ + | Care Carton Gluing 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 Name | Role | Phone [...] | | | [facility] | [facility], [place] | | | | | [address] [facility], | [address] | | | | | [place] [address] | [phone] | | | | | [phone] | | | +--------+ + + + [...] [place] | | | | | | [address] | | | | | | [phone] | | | | | | | | +--------+---------+ + + + | 02/26/ | Office | Urology | Lillie Fowler | | | 2018 | Visit | | [address]IE Lopez [address] | | | | | | [address] | | | | | | [place], [place] | | | | | | [address] | | | | | | [phone] | | | | | | | | +--------+---------+ + + + | 03/16/ | Office | Neurology | Theresa, | | | 2018 | Visit | | [address] | | | | | | [address] [place], | | | | | | [place] [address] | | | | | | [phone] | | | | | | | | +--------+---------+ + + + | 04/12/ | Office | Primary Care | Massimo Ramos | | | 2019 | Visit | | MD Fer [address] | | | | | | [place] | | | | | | [address] | | | | | | | | +--------+---------+ + + + | 10/03/ | Office | Neurology | Fabián Carias MD | | | 2019 | Visit | | [address] | | | | | | [place] | | | | | | [address] | | | | | | | [...] | | | care | | | Pharmacy Clinical Specialist-C | | | | | | [...] | | | care | | | Pharmacy Clinical Specialist-C | | | | | | [...] | | | care | | | Pharmacy Clinical Specialist-C | | | | | | [...] | | | care | | | Pharmacy Clinical Specialist-C | | | | | | [...]
--- OUTSIDE RECORDS SUMMARY | ~2019-02-17 | XMS | Encounter Summary ---
Demographics + + + | Address | [address] | | | [place] [address] | + + + | Home Phone [...] Team Providers + +------+ + | Care Hydrogeology Professor Name | Role | Phone | [...] | | | | [address] [facility], | [address] | Dx); Primary | | | | [place] [address] | [phone] | osteoarthritis | | | | [phone] | | involving multiple | | | [...] | | | | | | (HCC); jail | | | | | | [...] CMA - 09/30/2017 10:00 AM PDT10/01/17 Geraldo Mcfdaden was seen today for ear lavage of [...] ightly. Dispense: 3 vial; Refill: 5 7. jail current use of opiate analgesic - oxyCODONE [...] [place] | | | | | | [address] | | | | | | [phone] | | | | | | | | +--------+---------+ + + + | 02/26/ | Office | Urology | MalcolmLillie | | | 2018 | Visit | | [address]IE [address] | | | | | | [address] | | | | | | [place] | | | | | | [address] | | | | | | [phone] | | | | | | | | +--------+---------+ + + + | 03/16/ | Office | Neurology | Theresa, | | | 2018 | Visit | | [address] | | | | | | [address] [place], | | | | | | [place] [address] | | | | | | [phone] | | | | | | | | +--------+---------+ + + + | 04/12/ | Office | Primary Care | Massimo Ramos | | | 2019 | Visit | | MD Fer [address] | | | | | | [place] | | | | | | [address] | | | | | | | | +--------+---------+ + + + | 10/03/ | Office | Neurology | Fabián Carias MD | | | 2020 | Visit | | [address] | | | | | | [place], [place] | | | | | | [address] | | | | | | | [...] | | | care | | | Swatch Maker-C | | | | | | [...] | | | care | | | Swatch Maker-C | | | | | | [...] | | | care | | | Swatch Maker-C | | | | | | [...] | | | care | | | Swatch Maker-C | | | | | | [...] | insulin (HCC) | + + | 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
--- OUTSIDE RECORDS SUMMARY | ~2019-02-17 | XMS | Encounter Summary ---
Demographics + + + | Address | [address] | | | [place] [address] | + + + | Home Phone [...] Providers + +------+ + | Care Automotive Consultant Name | Role | Phone | [...] unspecified back | | | | [place] [address] | | pain laterality | | | | [phone] | | (Primary Dx); Sprain | | [...] written, pt stated understanding. Pt ambulated to [facility] difficulty or assistance. Electronically signed by: Cara [...] [place] | | | | | | [address] | | | | | | [phone] | | | | | | | | +--------+---------+ + + + | 02/26/ | Office | Urology | Lillie Fowler | | | 2018 | Visit | | [address] | | | | | | [address] | | | | | | [place], [place] | | | | | | [address] | | | | | | [phone] | | | | | | | | +--------+---------+ + + + | 03/16/ | Office | Neurology | Theresa, | | | 2018 | Visit | | [address] | | | | | | [address] [place], | | | | | | [place] [address] | | | | | | [phone] | | | | | | | | +--------+---------+ + + + | 04/12/ | Office | Primary Care | Massimo Ramos | | | 2019 | Visit | | MD Fer [address] | | | | | | [address] [place], [place] | | | | | | [address] | | | | | | | | +--------+---------+ + + + | 10/03/ | Office | Neurology | Fabián Carias MD | | | 2019 | Visit | | [address] | | | | | | [place], [place] | | | | | | [address] | | | | | | | [...] | | | care | | | Gate Keeper-C | | | | | | [...] | | | care | | | Gate Keeper-C | | | | | | [...] | | | care | | | Gate Keeper-C | | | | | | [...] | | | care | | | Gate Keeper-C | | | | | | [...] | + +--------+ + + + | [place] INJECT TRIGGER | Routin | 12/03/2018 | [...] 11:27 | | | | | ONCE, [facility] 12/03/18 at 1145, For 1 | | [...] uteal-Ri | | ONCE, [facility] 12/03/18 at 1130, For 1 | | [...] | | | ) | | ONCE, [facility] 12/03/18 at 1145, For 1 | | [...]
--- OUTSIDE RECORDS SUMMARY | ~2019-02-17 | XMS | Encounter Summary ---
Demographics + + + | Address | [address] | | | [place] [address] | + + + | Home Phone [...] Providers + +------+ + | Care Shellfish Bed Worker Name | Role | Phone | [...] | | | | MANAG[address] | Television Announcer-Clinical | | | | | [place] | | | | | | [place] | | | | | | [address] | | | | | | [phone] | | | +--------+ + + + [...] [place] | | | | | | [address] | | | | | | [phone] | | | | | | | | +--------+---------+ + + + | 02/26/ | Office | Urology | Lillie Fowler | | | 2018 | Visit | | [address]IE [address] | | | | | | [address] | | | | | | [place], [place] | | | | | | [address] | | | | | | [phone] | | | | | | | | +--------+---------+ + + + | 03/16/ | Office | Neurology | Theresa, | | | 2018 | Visit | | [address] | | | | | | [address] [place], | | | | | | [place] [address] | | | | | | [phone] | | | | | | | | +--------+---------+ + + + | 04/12/ | Office | Primary Care | Massimo Ramos Pedro Luis | | | 2019 | Visit | | MD Fer [address] | | | | | | [place] | | | | | | [address] | | | | | | | | +--------+---------+ + + + | 10/03/ | Office | Neurology | Fabián Carias MD | | | 2019 | Visit | | [address] | | | | | | [place] | | | | | | [address] | | | | | | | [...] | | care | | | Television Announcer-C | | | | | | | [...] | | care | | | Television Announcer-C | | | | | | | [...] | | care | | | Television Announcer-C | | | | | | | [...] | | care | | | Television Announcer-C | | | | | | | linical | + +--------+ +---+-----+ + + + | Note: Pt will | | check CBG's daily x1 | | Pt will take Lantis as | | prescribed | + + documented as of this encounter Visit Diagnoses Not on filedocumented in this encounter"
--- OUTSIDE RECORDS SUMMARY | ~2019-02-17 | XMS | Encounter Summary ---
Demographics + + + | Address | [address] | | | [place] [address] | + + + | Home Phone [...] Providers + +------+ + | Care Health Program Specialist Name | Role | Phone | [...] | | | [facility] | Bevel Mill Operator-Clinical | | | | | [address] [facility], | | | | | | [place] [address] | | | | | | [phone] | | | +--------+ + + + [...] [place] | | | | | | [address] | | | | | | [phone] | | | | | | | | +--------+---------+ + + + | 02/26/ | Office | Urology | Lillie Fowler | | | 2018 | Visit | | [address]IE [address] | | | | | | [address] | | | | | | [place], [place] | | | | | | [address] | | | | | | [phone] | | | | | | | | +--------+---------+ + + + | 03/16/ | Office | Neurology | Theresa, | | | 2018 | Visit | | [address] | | | | | | [address] [place], | | | | | | [place] [address] | | | | | | [phone] | | | | | | | | +--------+---------+ + + + | 04/12/ | Office | Primary Care | Massimo Ramos Pedro Luis | | | 2019 | Visit | | MD Fer [address] | | | | | | [place] | | | | | | [address] | | | | | | | | +--------+---------+ + + + | 10/03/ | Office | Neurology | Fabián Carias MD | | | 2019 | Visit | | [address] | | | | | | [place] | | | | | | [address] | | | | | | | [...] | | | care | | | Bevel Mill Operator-C | | | | | [...] | | | care | | | Bevel Mill Operator-C | | | | | [...] | | | care | | | Bevel Mill Operator-C | | | | | [...] | | | care | | | Bevel Mill Operator-C | | | | | [...]
--- OUTSIDE RECORDS SUMMARY | ~2019-02-17 | XMS | Encounter Summary ---
Demographics + + + | Address | [address] | | | [place] [address] | + + + | Home Phone [...] Team Providers + +------+ + | Care Loan Funder Name | Role | Phone | + [...] | | | | other organs | [address] | [address] | | | | | and systems | Phone: | Phone: | | | | | Procedures | [phone] | [phone] | | | | | OV | Fax: | Fax: | | | | | | [phone] | [phone] | + + + + + + [...] | (Primary Dx); | | | | [address] | [address] | Erectile | | | | [phone] | [phone] | dysfunction, | | | | | [...] tablet by mouth every morning. nystatin (MYCOSTATIN) 129335 UNIT/GM cream Apply topically 2 times daily. [...] 5 tabs safely. Candidiasis - nystatin (MYCOSTATIN) 766175 UNIT/GM cream; Apply topically 2 times daily. [...] ultrasound. [place] PA-C Lara Diaz [employer] COMMUNICATIONS BILLING ANALYST - 01/27/2019 10:30 AM PDT12/08/2018 PSA documented [...] [place] | | | | | | [address] | | | | | | [phone] | | | | | | | | +--------+---------+ + + + | 02/26/ | Office | Urology | Lillie Fowler | | | 2018 | Visit | | [address] | | | | | | [address] | | | | | | [place], [place] | | | | | | [address] | | | | | | [phone] | | | | | | | | +--------+---------+ + + + | 03/16/ | Office | Neurology | Theresa, | | | 2018 | Visit | | [address] | | | | | | [address] [place], | | | | | | [place] [address] | | | | | | [phone] | | | | | | | | +--------+---------+ + + + | 04/12/ | Office | Primary Care | Massimo Ramos | | | 2019 | Visit | | MD Fer [address] | | | | | | [place] | | | | | | [address] | | | | | | | | +--------+---------+ + + + | 10/03/ | Office | Neurology | Fabián Carias MD | | | 2019 | Visit | | [address] | | | | | | [place] | | | | | | [address] | | | | | | | [...] | care | | | Head Of Ict-C | | | | | | | [...] | care | | | Head Of Ict-C | | | | | | | [...] | care | | | Head Of Ict-C | | | | | | | [...] | care | | | Head Of Ict-C | | | | | | | [...]
--- OUTSIDE RECORDS SUMMARY | ~2019-02-17 | XMS | Encounter Summary ---
Demographics + + + | Address | [address] | | | [place] [address] | + + + | Home Phone [...] Team Providers + +------+ + | Care Perfusionist Name | Role | Phone | + [...] | | [place], [place] | [place] [address] | | | | | [address] | [phone] | | | | | [phone] | | | +--------+ + + + [...] [place] | | | | | | [address] | | | | | | [phone] | | | | | | | | +--------+---------+ + + + | 02/26/ | Office | Urology | Lillie Fowler | | | 2018 | Visit | | [address] | | | | | | [address] | | | | | | [place], [place] | | | | | | [address] | | | | | | [phone] | | | | | | | | +--------+---------+ + + + | 03/16/ | Office | Neurology | Theresa, | | | 2018 | Visit | | [address] | | | | | | [address] [place], | | | | | | [place] [address] | | | | | | [phone] | | | | | | | | +--------+---------+ + + + | 04/12/ | Office | Primary Care | Massimo Ramos | | | 2019 | Visit | | MD Fer [address] | | | | | | [place] | | | | | | [address] | | | | | | | | +--------+---------+ + + + | 10/03/ | Office | Neurology | Fabián Carias MD | | | 2019 | Visit | | [address] | | | | | | [place] | | | | | | [address] | | | | | | | [...] | | | care | | | Steel Post Installer Supervisor-C | | | | | | [...] | | | care | | | Steel Post Installer Supervisor-C | | | | | | [...] | | | care | | | Steel Post Installer Supervisor-C | | | | | | [...] | | | care | | | Steel Post Installer Supervisor-C | | | | | | | linical | + +--------+ +---+-----+ + + + | Note: Pt will | | check CBG's daily x1 | | Pt will take Lantis as | | prescribed | + + documented as of this encounter Visit Diagnoses Not on filedocumented in this encounter"
--- OUTSIDE RECORDS SUMMARY | ~2019-02-17 | XMS | Encounter Summary ---
Demographics + + + | Address | [address] | | | [place] [address] | + + + | Home Phone [...] Providers + +------+ + | Care Tube Mounter Name | Role | Phone | + +------+ + | Horacio Silvestre DO | PCP | | + +------+ + Reason for Visit + + + | Reason | Comments | + + + | Referral (Follow up) | head bookkeeper | + + + Encounter Details +--------+ + + + + | Date | Type | Department | Care Team | Description | +--------+ + + + + | 05/06/ | Telephone | [facility] [facility] | Horacio Silvestre, | Referral (Follow up) | | 2018 | | [facility] | [facility] [address] [place] | (head bookkeeper) | | | | [facility] | [facility] [place] | | | | | [facility] [facility], | [address] | | | | | [place] [address] | [phone] | | | | | [phone] | | | +--------+ + + + [...] [place] | | | | | | [address] | | | | | | [phone] | | | | | | | | +--------+---------+ + + + | 02/26/ | Office | Urology | Lillie Fowler | | | 2018 | Visit | | [address] | | | | | | [address] | | | | | | [place], [place] | | | | | | [address] | | | | | | [phone] | | | | | | | | +--------+---------+ + + + | 03/16/ | Office | Neurology | Theresa, | | | 2018 | Visit | | [address] | | | | | | [address] [place], | | | | | | [place] [address] | | | | | | [phone] | | | | | | | | +--------+---------+ + + + | 04/12/ | Office | Primary Care | Massimo Ramos | | | 2019 | Visit | | MD [address] | | | | | | [place] | | | | | | [address] | | | | | | | | +--------+---------+ + + + | 10/03/ | Office | Neurology | Fabián Carias MD | | | 2019 | Visit | | [address] | | | | | | [place] | | | | | | [address] | | | | | | | [...] | | | care | | | Brand Development Manager-C | | | | | | [...] | | | care | | | Brand Development Manager-C | | | | | | [...] | | | care | | | Brand Development Manager-C | | | | | | [...] | | | care | | | Brand Development Manager-C | | | | | | | linical | + +--------+ +---+-----+ + + + | Note: Pt will | | check CBG's daily x1 | | Pt will take Lantis as | | prescribed | + + documented as of this encounter Visit Diagnoses Not on filedocumented in this encounter"
--- OUTSIDE RECORDS SUMMARY | ~2019-02-17 | XMS | Encounter Summary ---
Demographics + + + | Address | [address] | | | [place] [address] | + + + | Home Phone [...] Team Providers + +------+ + | Care Fireworks Assembly Supervisor Name | Role | Phone | [...] | | | [address] [place], | [facility] [place] | | | | | [place] [address] | [address] | | | | | [phone] | [phone] | | | | | | | [...] [place] | | | | | | [address] | | | | | | [phone] | | | | | | | | +--------+---------+ + + + | 02/26/ | Office | Urology | Lillie Fowler | | | 2018 | Visit | | LILLIE Lopez [address] | | | | | [address] | | | | | | [place] | | | | | | [address] | | | | | | [phone] | | | | | | | | +--------+---------+ + + + | 03/16/ | Office | Neurology | Theresa, | | | 2018 | Visit | | SHONDA Mckinney [address] [place], | | | | | | [place] [address] | | | | | | [phone] | | | | | | | | +--------+---------+ + + + | 04/12/ | Office | Primary Care | Massimo Ramos | | | 2019 | Visit | | MD Fer [address] | | | | | | [address] [place] | | | | | | [address] | | | | | | | | +--------+---------+ + + + | 10/03/ | Office | Neurology | Fabián Carias MD | | | 2019 | Visit | | [address] | | | | | | [place] | | | | | | [address] | | | | | | | [...] | | care | | | Personnel Analyst-C | | | | | | [...] | | care | | | Personnel Analyst-C | | | | | | [...] | | care | | | Personnel Analyst-C | | | | | | [...] | | care | | | Personnel Analyst-C | | | | | | | linical | + +--------+ +---+-----+ + + + | Note: Pt will | | check CBG's daily x1 | | Pt will take [place] as | | prescribed | + + documented as of this encounter Visit Diagnoses Not on filedocumented in this encounter"
--- OUTSIDE RECORDS SUMMARY | ~2019-02-17 | XMS | Encounter Summary ---
Demographics + + + | Address | [address] | | | [place] [address] | + + + | Home Phone [...] Providers + +------+ + | Care Financial Brokers Name | Role | Phone | + [...] [place] | | | | | | [address] | (Fax) | | | | | [phone] | | | +--------+ + + + [...] [place] | | | | | | [address] | | | | | | [phone] | | | | | | | | +--------+---------+ + + + | 02/26/ | Office | Urology | Lillie Fowler | | | 2018 | Visit | | LILLIE Lopez [address] | | | | | | [address] | | | | | | [place] | | | | | | [address] | | | | | | [phone] | | | | | | | | +--------+---------+ + + + | 03/16/ | Office | Neurology | Theresa, | | | 2018 | Visit | | [address] | | | | | | [address] [place], | | | | | | [place] [address] | | | | | | [phone] | | | | | | | | +--------+---------+ + + + | 04/12/ | Office | Primary Care | Massimo Ramos | | | 2019 | Visit | | MD Fer [address] | | | | | | [place] | | | | | | [address] | | | | | | | | +--------+---------+ + + + | 10/03/ | Office | Neurology | Fabián Carias MD | | | 2019 | Visit | | [address] | | | | | | [place] | | | | | | [address] | | | | | | | [...] | | care | | | Patient Services Technician-C | | | | | | [...] | | care | | | Patient Services Technician-C | | | | | | [...] | | care | | | Patient Services Technician-C | | | | | | [...] | | care | | | Patient Services Technician-C | | | | | | | linical | + +--------+ +---+-----+ + + + | Note: Pt will | | check CBG's daily x1 | | Pt will take Lantis as | | prescribed | + + documented as of this encounter Visit Diagnoses Not on filedocumented in this encounter"
--- OUTSIDE RECORDS SUMMARY | ~2019-02-17 | XMS | Encounter Summary ---
Demographics + + + | Address | [address] | | | [place] [address] | + + + | Home Phone [...] Team Providers + +------+ + | Care Driver/Guide Name | Role | Phone | + [...] Medication Refill | | 2017 | | [facility] | DO [address] [place] | | | | | [facility] | [facility] [place] | | | | | [address] [place], | [address] | | | | | [place] [address] | [phone] | | | | | [phone] | | | +--------+ + + + [...] [place] | | | | | | [address] | | | | | | [phone] | | | | | | | | +--------+---------+ + + + | 02/26/ | Office | Urology | Lillie Fowler | | | 2018 | Visit | | [address]IE [address] | | | | | | [address] | | | | | | [place], [place] | | | | | | [address] | | | | | | [phone] | | | | | | | | +--------+---------+ + + + | 03/16/ | Office | Neurology | Theresa, | | | 2018 | Visit | | [address] | | | | | | [address] [place], | | | | | | [place] [address] | | | | | | [phone] | | | | | | | | +--------+---------+ + + + | 04/12/ | Office | Primary Care | Massimo Ramos Pedro Luis | | | 2019 | Visit | | MD Fer [address] | | | | | | [place] | | | | | | [address] | | | | | | | | +--------+---------+ + + + | 10/03/ | Office | Neurology | Fabián Carias MD | | | 2019 | Visit | | [address] | | | | | | [place] | | | | | | [address] | | | | | | | [...] | | | care | | | Supplies Packer-C | | | | | | | [...] | | | care | | | Supplies Packer-C | | | | | | | [...] | | | care | | | Supplies Packer-C | | | | | | | [...] | | | care | | | Supplies Packer-C | | | | | | | [...]
--- OUTSIDE RECORDS SUMMARY | ~2019-02-17 | XMS | Encounter Summary ---
Demographics + + + | Address | [address] | | | [place] [address] | + + + | Home Phone [...] Providers + +------+ + | Care Supervisor Data Processing Name | Role | Phone | + [...] respiratory | | 2018 | Visit | [facility] | EMERGENCY PREPAREDNESS COORDINATOR [address] [place] | tract infection, | | | | [facility] [address] | [place] [address] | unspecified type | | | | [address] [place], | [phone] | (Primary Dx) | | | | [place] [address] | | | | | | [phone] | | | +--------+---------+ + + + [...] 3days of taking antibiotics Date Last Reviewed: 05/08/201619990342-8504 The [employer]. [address] [place] [address]. All righ ts reserved. 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 His prescriptions were faxed to [facility] [place] per h is request. Return in about 5 days (around 07/10/2017) for If no improvemnet or sooner if acutely worseni ng.. COLLINS Mcrae07/05/201713:59 [facility] Leonardo Narvaez LPN - 07/05/2017 11:15 AM Srikanthlakshmi Mcfadden presents to [facility] today with Chief Complaint of: Cough, sinus congestion, fevers x 2-3 days. Current medications verified with him at time of visit. Pt currently shows no s/s of distress, shortness of breath. Vital signs: BP 112/60 | Pulse 77 | Temp 37.6 C (99.7 F) (Oral) | Resp 16 | SpO2 93 % Labs Obtained per [facility] protocol: None. Verbal Report given to: [...] [place] | | | | | | [address] | | | | | | [phone] | | | | | | | | +--------+---------+ + + + | 02/26/ | Office | Urology | Lillie Fowler | | | 2018 | Visit | | [address] | | | | | | [address] | | | | | | [place], [place] | | | | | | [address] | | | | | | [phone] | | | | | | | | +--------+---------+ + + + | 03/16/ | Office | Neurology | Theresa, | | | 2018 | Visit | | [address] | | | | | | [address] [place], | | | | | | [place] [address] | | | | | | [phone] | | | | | | | | +--------+---------+ + + + | 04/12/ | Office | Primary Care | Massimo Ramos | | | 2019 | Visit | | MD Fer [address] | | | | | | [place] | | | | | | [address] | | | | | | | | +--------+---------+ + + + | 10/03/ | Office | Neurology | Fabián Carias MD | | | 2019 | Visit | | [address] | | | | | | [place] | | | | | | [address] | | | | | | | [...] | | | care | | | Advance Agent-C | | | | | | [...] | | | care | | | Advance Agent-C | | | | | | [...] | | | care | | | Advance Agent-C | | | | | | [...] | | | care | | | Advance Agent-C | | | | | | [...]
--- OUTSIDE RECORDS SUMMARY | ~2019-02-17 | XMS | Encounter Summary ---
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 | | | | | | | [...] [place] | | | | | | [address] | | | | | | [phone] | | | | | | | | +--------+---------+ + + + | 02/26/ | Office | Urology | Lillie Fowler | | | 2018 | Visit | | [address] | | | | | | [address] | | | | | | [place] | | | | | | [address] | | | | | | [phone] | | | | | | | | +--------+---------+ + + + | 03/16/ | Office | Neurology | Theresa, | | | 2018 | Visit | | [address] | | | | | | [address] [place], | | | | | | [place] [address] | | | | | | [phone] | | | | | | | | +--------+---------+ + + + | 04/12/ | Office | Primary Care | Massimo Ramos | | | 2019 | Visit | | MD Fer [address] | | | | | | [place] | | | | | | [address] | | | | | | | | +--------+---------+ + + + | 10/03/ | Office | Neurology | Fabián Carias MD | | | 2019 | Visit | | [address] | | | | | | [place] | | | | | | [address] | | | | | | | [...] | | | care | | | Coupling 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-C | | | | | [...] | | | care | | | Coupling 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-C | | | | | [...] | | | care | | | Coupling 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-C | | | | | [...] | | | care | | | Coupling 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-C | | | | | [...] | | | origin | | | al.RADNA | | | E?NOTI | | | FICATI | | | ON?/ | | | 15 | | | 8 | | | 14:30? | | | MCFADDEN, | | | KENNET | | | H | | | J?MRN: | | | | | | [id number] | | | [id number] | | | ecurit | | | [...] | | | pneumo | | | beeb, | | | unspec | | | [...] | mL/min/1.73m2 | [facility] | | | [facility] | [facility]IMATED | | [facility] | | | | mL/min/1.18k1Hmfv than | | LABORATORY | | | [...] + + | [facility] | [address] | [place] [address] | [phone] | | HOSPITAL LABORATORY | | | [...] + + | [facility] | [address] | [place] [address] | [phone] | | HOSPITAL LAB[facility]ATORY | | | [...]
--- OUTSIDE RECORDS SUMMARY | ~2019-02-17 | XMS | Encounter Summary ---
Demographics + + + | Address | [address] | | | [place] [address] | + + + | Home Phone [...] Team Providers + +------+ + | Care Relay Engineer Name | Role | Phone | [...] [address] | | | | | [place] [address] | | | | | | [phone] | | | +--------+ + + + [...] [place] | | | | | | [address] | | | | | | [phone] | | | | | | | | +--------+---------+ + + + | 02/26/ | Office | Urology | Lillie Fowler | | | 2018 | Visit | | [address]IE [address] | | | | | | [address] | | | | | | [place], [place] | | | | | | [address] | | | | | | [phone] | | | | | | | | +--------+---------+ + + + | 03/16/ | Office | Neurology | Theresa, | | | 2018 | Visit | | [address] | | | | | | [address] [place], | | | | | | [place] [address] | | | | | | [phone] | | | | | | | | +--------+---------+ + + + | 04/12/ | Office | Primary Care | Richard Massimo Pedro Luis | | | 2019 | Visit | | MD Fer [address] | | | | | | [place] | | | | | | [address] | | | | | | | | +--------+---------+ + + + | 10/03/ | Office | Neurology | Fabián Carias MD | | | 2019 | Visit | | [address] | | | | | | [place] | | | | | | [address] [...] | | care | | | Line Production Cook-C | | | | | | | [...] | | care | | | Line Production Cook-C | | | | | | | [...] | | care | | | Line Production Cook-C | | | | | | | [...] | | care | | | Line Production Cook-C | | | | | | | linical | + +--------+ +---+-----+ + + + | Note: Pt will | | check CBG's daily x1 | | Pt will take Lantis as | | prescribed | + + documented as of this encounter Visit Diagnoses Not on filedocumented in this encounter"
--- OUTSIDE RECORDS SUMMARY | ~2019-02-17 | XMS | Encounter Summary ---
Demographics + + + | Address | [address] | | | [place] [address] | + + + | Home Phone [...] Team Providers + +------+ + | Care Interventional Radiologist Name | Role | Phone | + [...] | | [place], [place] | [place] [address] | with complication, | | 2018 | | [address] | [phone] | with long-term | | | | [phone] | | current use of | | | | | Esteban Calvillo, | insulin ([facility]) | | | | | [address] | | | | | | [place] [address] | | | | | | [phone] | | | | | | | | | | | | Aria Ramos MD | | | | | | [address] [place] | | | | | | [place] [address] | | | | | | [phone] | | | | | | | [...] Admission: 12/08/2018 Date of Discharge: 12/12/2018 PCP: Horcaio Silvestre Admitting Diagnosis: Hyperglycemia. 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 This point, case management is working [...] signed by: Kamila Valdivia 12/12/2018 9:38 CC [facility] Time spent discharging this patient: 35 minutes [...] Instructions Instructions Landy Blas RN - 12/12/2018 Rnzj-qs-[id number] Checking Your Blood Sugar Date Last Reviewed: 08/06/201519994159-4017 The [employer]. [address] [place] [address], [place] [address]. All righ ts reserved. This information is [...] resources below can help you learn more: [place] Diabetes Tdfvhljfcgu602-703-4023kno.diabetes.org Lighthouse Ioabpyskvakwd242-515-2605zgg.lighthouse.org National Eye Txwowquvz290-036-2944 www.nei.nih.gov Hormone Health [phone] www.hormone.org Date Last Reviewed: 08/06/201519996609-[address] [employer] [place] [address]. All righ ts reserved. This information is [...] to you, start slow and steady. Begin pblu64isopqku of activity each day. Then work up [...] provider to learn more. Date Last Reviewed: 09/06/201519998382-3747 [employer]. [address] [place] [address], [place] [address]. All righ ts reserved. This information is not intended as a substitute for professional medical care. Always follow your healthcare professional's instructions. AttachmentsThe following attachments cannot be sent through Care Everywhere.Diabetes, Healt hy Meals for (Peruvian)Healthy Cooking Tips for People with Diabetes (Peruvian)Diabetes, Carbo hydrates, Fats, and Protein, Understanding (Peruvian)Diabetes, Eating Out When You Have (Engl shakeel)Insulin, Using and Injecting (Peruvian)documented in this encounter Medications at Time [...] on 12/08/18 for hyperglycemia and was dischar [facility] on 12/12/18. Discharge Medications New Medications Details [...] PDT . MEDICAL HOSPITALIST TEAM PROGRESS NOTE Name:[facility] Day # 1 Reason for [...] signed by: Kamila Valdivia 12/11/2018 9:57 CC [facility] Portions of this chart may [...] by: Esteban Calvillo MD 12/10/2018 8:29 CC [facility] Portions of this chart may have been created with voice recognition software. Occasional wo rd or "sound-alike" substitutions may have occurred due to the inherent limitation of voice recognition software. Read the chart carefully and recognize, using context, where these sub stitutions have occurred. steban Calvillo MD - 12/09/2018 10:31 AM PDT MEDICAL HOSPITALIST TEAM PROGRESS NOTE Name:Geraldo Mcfadden [facility] Day # 0 Reason for admission [...] current dose Lantus with sliding scale insulin. Director Counseling Bureau consult for another round of diabetic diet [...] disposition: Likely [facility] Subjective/ROS: Urinary incontinence for 2 days [...] signed by: Kamila Valdivia 12/09/2018 10:45 CC [facility] Portions of this chart may [...] from home med list . Please see [facility] [facility] med list for updated medication list. Electronically [...] [place] | | | | | | [address] | | | | | | [phone] | | | | | | | | +--------+---------+ + + + | 02/26/ | Office | Urology | Lillie Fowler | | | 2018 | Visit | | [address]ILLIE Lopez [address] | | | | | | [address] | | | | | | [place] | | | | | | [address] | | | | | | [phone] | | | | | | | | +--------+---------+ + + + | 03/16/ | Office | Neurology | Theresa, | | | 2018 | Visit | | [address] | | | | | [address] [place], | | | | | | [place] [address] | | | | | | [phone] | | | | | | | | +--------+---------+ + + + | 04/12/ | Office | Primary Care | Massimo Ramos | | | 2019 | Visit | | MD Fer [address] | | | | | | [place] | | | | | | [address] | | | | | | | | +--------+---------+ + + + | 10/03/ | Office | Neurology | Fabián Carias MD | | | 2019 | Visit | | [address] | | | | | | [place] | | | | | | [address] | | | | | | | [...] | | | care | | | Out Of Town Collection Clerk-C | | | | | | [...] | | | care | | | Out Of Town Collection Clerk-C | | | | | | [...] | | | care | | | Out Of Town Collection Clerk-C | | | | | | [...] | | | care | | | Out Of Town Collection Clerk-C | | | | | | [...] + + | [facility] | [address] | [place] [address] | [phone] | | HOSPITAL LAB[facility]ATORY | | | [...] | mL/min/1.73m2 | [facility] | | [facility] | | [facility] | | | [...] + + | [facility] | [address] | [place] [address] | [phone] | | HOSPITAL LABORATORY | | | [...] + + | [facility] | [address] | [place] [address] | [phone] | | HOSPITAL LAB[facility]ATORY | | | [...] + + | [facility] | [address] | [place] [address] | [phone] | | HOSPITAL LAB[facility]ATORY | | | [...] + + | [facility] | [address] | [place] [address] | [phone] | | HOSPITAL LAB[facility]ATORY | | | [...] + + | [facility] | [address] | [place] [address] | [phone] | | HOSPITAL LAB[facility]ATORY | | | [...] | mL/min/1.73m2 | [facility] | | | [facility] | | | [facility] | | | [...] + + | [facility] | [address] | [place] [address] | [phone] | | HOSPITAL LAB[facility]ATORY | | | [...] + + | [facility] | [address] | [place] [address] | [phone] | | HOSPITAL LAB[facility]ATORY | | | [...] + + | [facility] | [address] | [place] [address] | [phone] | | HOSPITAL LAB[facility]ATORY | | | [...] + + | [facility] | [address] | [place] [address] | [phone] | | HOSPITAL LAB[facility]ATORY | | | [...] + + | [facility] | [address] | [place] [address] | [phone] | | HOSPITAL LAB[facility]ORY | | | [...] + + | [facility] | [address] | [place] [address] | [phone] | | HOSPITAL LAB[facility]ORY | | | [...] + + | [facility] | [address] | [place] [address] | [phone] | | HOSPITAL LAB[facility]ATORY | | | [...] + + | [facility] | [address] | [place] [address] | [phone] | | HOSPITAL LAB[facility]ORY | | | [...] + + | [facility] | [address] | [place] [address] | [phone] | | HOSPITAL LAB[facility]ORY | | | [...] + + | [facility] | [address] | [place] [address] | [phone] | | HOSPITAL LAB[facility]ORY | | | [...] + + | [facility] | [address] | [place] [address] | [phone] | | HOSPITAL LAB[facility]ORY | | | [...] + + | [facility] | [address] | [place] [address] | [phone] | | HOSPITAL LAB[facility]ORY | | | [...] | mL/min/1.73m2 | [facility] | | [facility] | | | [facility] | | | [...] + + | [facility] | [address] | [place] [address] | [phone] | | HOSPITAL LAB[facility]ATORY | | | [...] + + | [facility] | [address] | [place] [address] | [phone] | | HOSPITAL LAB[facility]ORY | | | [...] + + | [facility] | [address] | [place] [address] | [phone] | | HOSPITAL LAB[facility]ORY | | | [...] + + | [facility] | [address] | [place] [address] | [phone] | | HOSPITAL LAB[facility] | | | [...] + + | [facility] | [address] | [place] [address] | [phone] | | HOSPITAL LAB[facility] | | | [...] + + | [facility] | [address] | [place] [address] | [phone] | | HOSPITAL LAB[facility]ORY | | | [...] + + | [facility] | [address] | [place] [address] | [phone] | | HOSPITAL LAB[facility]ORY | | | [...] + + | [facility] | [address] | [place] [address] | [phone] | | HOSPITAL LAB[facility]ORY | | | [...] + + | [facility] | [address] | [place] [address] | [phone] | | HOSPITAL LAB[facility]ORY | | | [...] | 1.1 | 0.8 - 1.2 | [facility] | | | | | [...] + + | [facility] | [address] | [place] [address] | [phone] | | HOSPITAL LAB[facility]ORY | | | [...] + + | [facility] | [address] | [place] [address] | [phone] | | HOSPITAL LAB[facility]ORY | | | [...] + + | [facility] | [address] | [place] [address] | [phone] | | HOSPITAL LAB[facility]ORY | | | [...] | mL/min/1.73m2 | [facility] | | | [facility] | | [facility] | | | [...] + + | [facility] | [address] | [place] [address] | [phone] | | HOSPITAL LAB[facility]ORY | | | [...] + + | [facility] | [address] | [place] [address] | [phone] | | HOSPITAL LAB[facility]ORY | | | [...] + + | [facility] | [address] | [place] [address] | [phone] | | HOSPITAL LAB[facility]ORY | | | [...] + + | [facility] | [address] | [place] [address] | [phone] | | HOSPITAL LAB[facility] | | | [...] | mL/min/1.73m2 | [facility] | | | [facility] | These results have been | | [...] + + | [facility] | [address] | [place] [address] | [phone] | | HOSPITAL LAB[facility] | | | [...] + + | [facility] | [address] | [place] [address] | [phone] | | HOSPITAL LAB[facility]ORY | | | [...] + + | [facility] | [address] | [place] [address] | [phone] | | HOSPITAL LAB[facility]ATORY | | | [...] Work of | | | Breathing, Starting [facility] 12/10/18 at | | | 0909 | [...] | | | | | | use [place] 10/325 if ordered. If | | | [...] | | | | | | | 5892-3947 Use NIGHT DOSE for | | | | | | | doses scheduled: HS, 3AM, | | | | | | | Nighttime 8667-5489 If the BG is | | | [...] | | | | | | | 5907-0935 Use NIGHT DOSE for | | | | | | | doses scheduled: HS, 3AM, | | | | | | | Nighttime 9411-9004 If the BG is | | | [...]
--- OUTSIDE RECORDS SUMMARY | ~2019-02-17 | XMS | Encounter Summary ---
Demographics + + + | Address | [address] | | | [place] [address] | + + + | Home Phone [...] Team Providers + +------+ + | Care Bread Icer Name | Role | Phone | + [...] | | | | [address] [facility], | [address] | Dx); Primary | | | | [place] [address] | [phone] | osteoarthritis | | | | [phone] | | involving multiple | | | [...] | | | | | | (HCC); intermediate | | | | | | current [...] ightly. Dispense: 3 vial; Refill: 5 7. intermediate current use of opiate analgesic - oxyCODONE [...] CATARACT REMOVAL; Surgeon: Tay Kern MD; Location: [facility] SURGERY [employer] MOHS [...] [place] | | | | | | [address] | | | | | | [phone] | | | | | | | | +--------+---------+ + + + | 02/26/ | Office | Urology | MalcolmLillie | | | 2018 | Visit | | [address]ILLIE Lopez [address] | | | | | | [place] | | | | | | [address] | | | | | | [phone] | | | | | | | | +--------+---------+ + + + | 03/16/ | Office | Neurology | Theresa, | | | 2018 | Visit | | [address] | | | | | [address] [place], | | | | | | [place] [address] | | | | | | [phone] | | | | | | | | +--------+---------+ + + + | 04/12/ | Office | Primary Care | Massimo Ramos | | | 2019 | Visit | | MD Fer [address] | | | | | | [place] | | | | | | [address] | | | | | | | | +--------+---------+ + + + | 10/03/ | Office | Neurology | Fabián Carias MD | | | 2020 | Visit | | [address] | | | | | | [place], [place] | | | | | | [address] | | | | | | | [...] | | | care | | | Apple Peeler Operator-C | | | | | | [...] | | | care | | | Apple Peeler Operator-C | | | | | | [...] | | | care | | | Apple Peeler Operator-C | | | | | | [...] | | | care | | | Apple Peeler Operator-C | | | | | | [...] | insulin (HCC) | + + | 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
--- OUTSIDE RECORDS SUMMARY | ~2019-02-17 | XMS | Encounter Summary ---
Demographics + + + | Address | [address] | | | [place] [address] | + + + | Home Phone [...] Team Providers + +------+ + | Care Grocery Buyer Name | Role | Phone | [...] Medication Refill | | 2016 | | [facility] | DO [address] [place] | | | | | [facility] [address] | [facility], [place] | | | | | [address] [place], | [address] | | | | | [place] [address] | [phone] | | | | | [phone] | | | +--------+--------+ + + + [...] [place] | | | | | | [address] | | | | | | [phone] | | | | | | | | +--------+---------+ + + + | 02/26/ | Office | Urology | Lillie Fowler | | | 2018 | Visit | | [address] | | | | | | [address] | | | | | | [place] | | | | | | [address] | | | | | | [phone] | | | | | | | | +--------+---------+ + + + | 03/16/ | Office | Neurology | Theresa, | | | 2018 | Visit | | [address] | | | | | | [address] [place], | | | | | | [place] [address] | | | | | | [phone] | | | | | | | | +--------+---------+ + + + | 04/12/ | Office | Primary Care | Massimo Ramos | | | 2019 | Visit | | MD [address] | | | | | | [place] | | | | | | [address] | | | | | | | | +--------+---------+ + + + | 10/03/ | Office | Neurology | Fabián Carias MD | | | 2019 | Visit | | [address] | | | | | | [place] | | | | | | [address] | | | | | | | [...] | | | care | | | Beater Worker Helper-C | | | | | [...] | | | care | | | Beater Worker Helper-C | | | | | [...] | | | care | | | Beater Worker Helper-C | | | | | [...] | | | care | | | Beater Worker Helper-C | | | | | | | linical | + +--------+ +---+-----+ + + + | Note: Pt will | | check CBG's daily x1 | | Pt will take Lantis as | | prescribed | + + documented as of this encounter Visit Diagnoses Not on filedocumented in this encounter"
--- OUTSIDE RECORDS SUMMARY | ~2019-02-17 | XMS | Encounter Summary ---
Demographics + + + | Address | [address] | | | [place] [address] | + + + | Home Phone [...] Team Providers + +------+ + | Care Animal Cruelty Investigation Supervisor Name | Role | Phone | [...] | | | MEDICAL [facility] | Biomedical Scientist-Clinical | | | | | [facility] [place], | | | | | | [place] [address] | | | | | | [phone] | | | +--------+ + + + [...] [place] | | | | | | [address] | | | | | | [phone] | | | | | | | | +--------+---------+ + + + | 02/26/ | Office | Urology | Lillie Fowler | | | 2018 | Visit | | [address] | | | | | | [address] | | | | | | [place], [place] | | | | | | [address] | | | | | | [phone] | | | | | | | | +--------+---------+ + + + | 03/16/ | Office | Neurology | Theresa, | | | 2018 | Visit | | [address] | | | | | | [address] [place], | | | | | | [place] [address] | | | | | | [phone] | | | | | | | | +--------+---------+ + + + | 04/12/ | Office | Primary Care | Massimo Ramos | | | 2019 | Visit | | MD [address] | | | | | | [place] | | | | | | [address] | | | | | | | | +--------+---------+ + + + | 10/03/ | Office | Neurology | Fabián Carias MD | | | 2019 | Visit | | [address] | | | | | | [place] | | | | | | [address] | | | | | | | [...] | | | care | | | Biomedical Scientist-C | | | | | | [...] | | | care | | | Biomedical Scientist-C | | | | | | [...] | | | care | | | Biomedical Scientist-C | | | | | | [...] | | | care | | | Biomedical Scientist-C | | | | | | [...]
--- OUTSIDE RECORDS SUMMARY | ~2019-02-17 | XMS | Encounter Summary ---
Demographics + + + | Address | [address] | | | [place] [address] | + + + | Home Phone [...] Team Providers + +------+ + | Care Newspaper Journalist Name | Role | Phone | + [...] | | | | [place] | [address] | | | | | [address] | | | | | | [phone] | | | +--------+ + + + [...] [place] | | | | | | [address] | | | | | | [phone] | | | | | | | | +--------+---------+ + + + | 02/26/ | Office | Urology | Lillie Fowler | | | 2018 | Visit | | [address] | | | | | | [address] | | | | | | [place] | | | | | | [address] | | | | | | [phone] | | | | | | | | +--------+---------+ + + + | 03/16/ | Office | Neurology | Theresa, | | | 2018 | Visit | | [address] | | | | | | [address] [place], | | | | | | [place] [address] | | | | | | [phone] | | | | | | | | +--------+---------+ + + + | 04/12/ | Office | Primary Care | Massimo Ramos | | | 2019 | Visit | | MD [address] | | | | | | [place] | | | | | | [address] | | | | | | | | +--------+---------+ + + + | 10/03/ | Office | Neurology | Fabián Carias MD | | | 2019 | Visit | | [address] | | | | | | [place] | | | | | | [address] | | | | | | | [...] | | care | | | Assistant Merchandiser-C | | | | | | | [...] | | care | | | Assistant Merchandiser-C | | | | | | | [...] | | care | | | Assistant Merchandiser-C | | | | | | | [...] | | care | | | Assistant Merchandiser-C | | | | | | | [...]
--- OUTSIDE RECORDS SUMMARY | ~2019-02-17 | XMS | Encounter Summary ---
Demographics + + + | Address | [address] | | | [place] [address] | + + + | Home Phone [...] Team Providers + +------+ + | Care Survey Cad Technician Name | Role | Phone | [...] [place] | | | | | | [address] | [address] | | | | | | Phone: | Phone: | | | | | | [phone] | [phone] | | | | | | Fax: | Fax: | | | | | | [phone] | [phone] | + + + + + + [...] | | [address] [place], | [address] | | | | | [place] [address] | [phone] | | | | | [phone] | | | +--------+ + + + [...] [place] | | | | | | [address] | | | | | | [phone] | | | | | | | | +--------+---------+ + + + | 02/26/ | Office | Urology | Sergio Fowlera | | | 2018 | Visit | | [address] | | | | | | [address] | | | | | | [place] | | | | | | [address] | | | | | | [phone] | | | | | | | | +--------+---------+ + + + | 03/16/ | Office | Neurology | Theresa, | | | 2018 | Visit | | [address] | | | | | | [address] [place], | | | | | | [place] [address] | | | | | | [phone] | | | | | | | | +--------+---------+ + + + | 04/12/ | Office | Primary Care | Massimo Ramos | | | 2019 | Visit | | [address] | | | | | | [place] | | | | | | [address] | | | | | | | | +--------+---------+ + + + | 10/03/ | Office | Neurology | Fabián Carias MD | | | 2020 | Visit | | [address] | | | | | | [place] | | | | | | [address] | | | | | | | [...] | | | care | | | Lpn Home Health-C | | | | | | | [...] | | | care | | | Lpn Home Health-C | | | | | | | [...] | | | care | | | Lpn Home Health-C | | | | | | | [...] | | | care | | | Lpn Home Health-C | | | | | | | [...]
--- OUTSIDE RECORDS SUMMARY | ~2019-02-17 | XMS | Encounter Summary ---
Demographics + + + | Address | [address] | | | [place] [address] | + + + | Home Phone [...] Team Providers + +------+ + | Care Algebra Tutor Name | Role | Phone | + [...] [place] | | | | | | [address] | (Fax) | | | | | [phone] | | | +--------+ + + + [...] [place] | | | | | | [address] | | | | | | [phone] | | | | | | | | +--------+---------+ + + + | 02/26/ | Office | Urology | Lillie Fowler | | | 2018 | Visit | | [address] | | | | | | [address] | | | | | | [place] | | | | | | [address] | | | | | | [phone] | | | | | | | | +--------+---------+ + + + | 03/16/ | Office | Neurology | Theresa, | | | 2018 | Visit | | [address] | | | | | | [address] [place], | | | | | | [place] [address] | | | | | | [phone] | | | | | | | | +--------+---------+ + + + | 04/12/ | Office | Primary Care | Massimo Ramos | | | 2019 | Visit | | MD [address] | | | | | | [place] | | | | | | [address] | | | | | | | | +--------+---------+ + + + | 10/03/ | Office | Neurology | Fabián Carias MD | | | 2019 | Visit | | [address] | | | | | | [place] | | | | | | [address] | | | | | | | [...] | | care | | | Account Executive Agribusiness-C | | | | | | | [...] | | care | | | Account Executive Agribusiness-C | | | | | | | [...] | | care | | | Account Executive Agribusiness-C | | | | | | | [...] | | care | | | Account Executive Agribusiness-C | | | | | | | [...]
--- OUTSIDE RECORDS SUMMARY | ~2019-02-17 | XMS | Encounter Summary ---
Demographics + + + | Address | [address] | | | [place] [address] | + + + | Home Phone [...] Team Providers + +------+ + | Care Linux Unix Administrator Name | Role | Phone | [...] [address] | | | | | [place] [address] | | | | | | [phone] | | | +--------+ + + + [...] [place] | | | | | | [address] | | | | | | [phone] | | | | | | | | +--------+---------+ + + + | 02/26/ | Office | Urology | Lillie Fowler | | | 2018 | Visit | | [address] | | | | | | [address] | | | | | | [place], [place] | | | | | | [address] | | | | | | [phone] | | | | | | | | +--------+---------+ + + + | 03/16/ | Office | Neurology | Theresa, | | | 2018 | Visit | | [address] | | | | | | [address] [place], | | | | | | [place] [address] | | | | | | [phone] | | | | | | | | +--------+---------+ + + + | 04/12/ | Office | Primary Care | Massimo Ramos | | | 2019 | Visit | | MD [address] | | | | | | [place] | | | | | | [address] | | | | | | | | +--------+---------+ + + + | 10/03/ | Office | Neurology | Fabián Carias MD | | | 2019 | Visit | | [address] | | | | | | [place] | | | | | | [address] | | | | | | | [...] | | care | | | Industrial Tech Instructor-C | | | | | | [...] | | care | | | Industrial Tech Instructor-C | | | | | | [...] | | care | | | Industrial Tech Instructor-C | | | | | | [...] | | care | | | Industrial Tech Instructor-C | | | | | | [...]
--- OUTSIDE RECORDS SUMMARY | ~2019-02-17 | XMS | Encounter Summary ---
Demographics + + + | Address | [address] | | | [place] [address] | + + + | Home Phone [...] Providers + +------+ + | Care Plant Breeder Name | Role | Phone | + +------+ + | Ryan Gutiérrez MD | PCP | | + +------+ + Encounter Details +--------+ + + + + | Date | Type | Department | Care Team | Description | +--------+ + + + + | 01/15/ | Hospital | [facility] | Jessica Brandt, | | | 2017 | Encounter | HOSPITAL [facility] | ENVIRONMENTAL AIR SPECIALIST [address] | | | | | [address] | [address] [place], [place] | | | | | [place], [place] | [address] | | | | | [address] | | | | | | [phone] | Faizan Wesley | | | | [...] [place] | | | | | | [address] | | | | | | [phone] | | | | | | | | +--------+---------+ + + + | 02/26/ | Office | Urology | Lillie Fowler | | | 2018 | Visit | | [address] | | | | | | [address] | | | | | | [place], [place] | | | | | | [address] | | | | | | [phone] | | | | | | | | +--------+---------+ + + + | 03/16/ | Office | Neurology | Theresa, | | | 2018 | Visit | | [address] | | | | | | [address] [place], | | | | | | [place] [address] | | | | | | [phone] | | | | | | | | +--------+---------+ + + + | 04/12/ | Office | Primary Care | Massimo Ramos | | | 2019 | Visit | | MD Fer [address] | | | | | | [place] | | | | | | [address] | | | | | | | | +--------+---------+ + + + | 10/03/ | Office | Neurology | Fabián Carias MD | | | 2019 | Visit | | [address] | | | | | | [place] | | | | | | [address] | | | | | | | [...] | | | care | | | Ice Puller-C | | | | | | | [...] | | | care | | | Ice Puller-C | | | | | | | [...] | | | care | | | Ice Puller-C | | | | | | | [...] | | | care | | | Ice Puller-C | | | | | | | [...]
--- OUTSIDE RECORDS SUMMARY | ~2019-02-17 | XMS | Encounter Summary ---
Demographics + + + | Address | [address] | | | [place] [address] | + + + | Home Phone [...] Team Providers + +------+ + | Care Deckhand Shrimp Boat Name | Role | Phone | + [...] [facility] | DO [address] | | | | | MEDICAL CL[facility] [address] | [facility] [place] | | | | | [address], | [address] | | | | | [place] [address] | [phone] | | | | | [phone] | | | +--------+ + + + [...] [place] | | | | | | [address] | | | | | | [phone] | | | | | | | | +--------+---------+ + + + | 02/26/ | Office | Urology | Lillie Fowler | | | 2018 | Visit | | [address] | | | | | | [address] | | | | | | [place] | | | | | | [address] | | | | | | [phone] | | | | | | | | +--------+---------+ + + + | 03/16/ | Office | Neurology | Theresa, | | | 2018 | Visit | | [address] | | | | | | [address] [place], | | | | | | [place] [address] | | | | | | [phone] | | | | | | | | +--------+---------+ + + + | 04/12/ | Office | Primary Care | Massimo Ramos | | | 2019 | Visit | | MD Fer [address] | | | | | | [address] [place], [place] | | | | | | [address] | | | | | | | | +--------+---------+ + + + | 10/03/ | Office | Neurology | Fabián Carias MD | | | 2019 | Visit | | [address] | | | | | | [place] | | | | | | [address] | | | | | | | [...] | | | care | | | Educational Aide-C | | | | | | [...] | | | care | | | Educational Aide-C | | | | | | [...] | | | care | | | Educational Aide-C | | | | | | [...] | | | care | | | Educational Aide-C | | | | | | | linical | + +--------+ +---+-----+ + + + | Note: Pt will | | check CBG's daily x1 | | Pt will take Lantis as | | prescribed | + + documented as of this encounter Visit Diagnoses Not on filedocumented in this encounter"
--- OUTSIDE RECORDS SUMMARY | ~2019-02-17 | XMS | Encounter Summary ---
Demographics + + + | Address | [address] | | | [place] [address] | + + + | Home Phone [...] Team Providers + +------+ + | Care Tailing Hand Name | Role | Phone | + +------+ + | Horacio Silvestre DO | PCP | | + +------+ + Encounter Details +--------+ + + + + | Date | Type | Department | Care Team | Description | +--------+ + + + + | 05/19/ | Documentati | [facility] | Fabián Carais MD | | | 2019 | on | [facility] | [address] | | | | | MEDICAL [facility] [address] | [place], [place] | | | | | [address] [place], | [address] | | | | | [place] [address] | | | | | | [phone] | | | +--------+ + + + [...] [place] | | | | | | [address] | | | | | | [phone] | | | | | | | | +--------+---------+ + + + | 02/26/ | Office | Urology | Lillie Fowler | | | 2018 | Visit | | [address] | | | | | | [address] | | | | | | [place], [place] | | | | | | [address] | | | | | | [phone] | | | | | | | | +--------+---------+ + + + | 03/16/ | Office | Neurology | Theresa, | | | 2018 | Visit | | [address] | | | | | | [address] [place], | | | | | | [place] [address] | | | | | | [phone] | | | | | | | | +--------+---------+ + + + | 04/12/ | Office | Primary Care | Massimo Ramos | | | 2019 | Visit | | MD Fer [address] | | | | | | [address] [place], [place] | | | | | | [address] | | | | | | | | +--------+---------+ + + + | 10/03/ | Office | Neurology | Fabián Carias MD | | | 2019 | Visit | | [address] | | | | | | [place] | | | | | | [address] | | | | | | | [...] | | | care | | | Precision Dancer-C | | | | | | | [...] | | | care | | | Precision Dancer-C | | | | | | | [...] | | | care | | | Precision Dancer-C | | | | | | | [...] | | | care | | | Precision Dancer-C | | | | | | | [...]
--- OUTSIDE RECORDS SUMMARY | ~2019-02-17 | XMS | Encounter Summary ---
Demographics + + + | Address | [address] | | | [place] [address] | + + + | Home Phone [...] Providers + +------+ + | Care Hand Shoes Sewer Name | Role | Phone | [...] Medication Refill | | 2019 | | [facility] | DO [address] | | | | | MEDICAL CLIN[facility] [address] | [facility], [place] | | | | | [address] [place], | [address] | | | | | [place] [address] | [phone] | | | | | [phone] | | | +--------+--------+ + + + [...] [place] | | | | | | [address] | | | | | | [phone] | | | | | | | | +--------+---------+ + + + | 02/26/ | Office | Urology | Lillie Fowler | | | 2019 | Visit | | [address] | | | | | | [address] | | | | | | [place], [place] | | | | | | [address] | | | | | | [phone] | | | | | | | | +--------+---------+ + + + | 03/16/ | Office | Neurology | Theresa, | | | 2018 | Visit | | [address] | | | | | | [address] [place], | | | | | | [place] [address] | | | | | | [phone] | | | | | | | | +--------+---------+ + + + | 04/12/ | Office | Primary Care | Massimo Ramos Pedro Luis | | | 2019 | Visit | | MD [address] | | | | | | [place] | | | | | | [address] | | | | | | | | +--------+---------+ + + + | 10/03/ | Office | Neurology | Fabián Carias MD | | | 2019 | Visit | | [address] | | | | | | [place] | | | | | | [address] | | | | | | | [...] | | care | | | Staff Sonographer-C | | | | | | | [...] | | care | | | Staff Sonographer-C | | | | | | | [...] | | care | | | Staff Sonographer-C | | | | | | | [...] | | care | | | Staff Sonographer-C | | | | | | | linical | + +--------+ +---+-----+ + + + | Note: Pt will | | check CBG's daily x1 | | Pt will take Lantis as | | prescribed | + + documented as of this encounter Visit Diagnoses Not on filedocumented in this encounter"
--- OUTSIDE RECORDS SUMMARY | ~2019-02-17 | XMS | Encounter Summary ---
Demographics + + + | Address | [address] | | | [place] [address] | + + + | Home Phone [...] Team Providers + +------+ + | Care Component Assembler Supervisor Name | Role | Phone | [...] Appointment Question | | 2019 | | [facility] | MD [address] | | | | | MEDICAL CLIN[facility] [address] | [place] | | | | | [address] [place], | [address] | | | | | [place] [address] | | | | | | [phone] | | | +--------+ + + + [...] [place] | | | | | | [address] | | | | | | [phone] | | | | | | | | +--------+---------+ + + + | 02/26/ | Office | Urology | Lillie Fowler | | | 2018 | Visit | | [address] | | | | | | [address] | | | | | | [place], [place] | | | | | | [address] | | | | | | [phone] | | | | | | | | +--------+---------+ + + + | 03/16/ | Office | Neurology | Theresa, | | | 2018 | Visit | | [address] | | | | | | [address] [place], | | | | | | [place] [address] | | | | | | [phone] | | | | | | | | +--------+---------+ + + + | 04/12/ | Office | Primary Care | Massimo Ramos | | | 2019 | Visit | | [address] | | | | | | [place] | | | | | | [address] | | | | | | | | +--------+---------+ + + + | 10/03/ | Office | Neurology | Fabián Carias MD | | | 2019 | Visit | | [address] | | | | | | [place] | | | | | | [address] | | | | | | | [...] | | | care | | | New Media Strategist-C | | | | | | | [...] | | | care | | | New Media Strategist-C | | | | | | | [...] | | | care | | | New Media Strategist-C | | | | | | | [...] | | | care | | | New Media Strategist-C | | | | | | | [...]
--- OUTSIDE RECORDS SUMMARY | ~2019-02-17 | XMS | Encounter Summary ---
Demographics + + + | Address | [address] | | | [place] [address] | + + + | Home Phone [...] Team Providers + +------+ + | Care Vessel Liner Name | Role | Phone | + [...] | | | | MANAGEMENT [address] | Digital Design Engineer-Clinical | | | | | [address] | | | | | | [place] | | | | | | [address] | | | | | | [phone] | | | +--------+ + + + [...] [place] | | | | | | [address] | | | | | | [phone] | | | | | | | | +--------+---------+ + + + | 02/26/ | Office | Urology | Lillie Fowler | | | 2018 | Visit | | [address] | | | | | | [address] | | | | | | [place], [place] | | | | | | [address] | | | | | | [phone] | | | | | | | | +--------+---------+ + + + | 03/16/ | Office | Neurology | Theresa, | | | 2018 | Visit | | [address] | | | | | | [address] [place], | | | | | | [place] [address] | | | | | | [phone] | | | | | | | | +--------+---------+ + + + | 04/12/ | Office | Primary Care | Massimo Ramos | | | 2019 | Visit | | [address] | | | | | | [place] | | | | | | [address] | | | | | | | | +--------+---------+ + + + | 10/03/ | Office | Neurology | Fabián Carias MD | | | 2019 | Visit | | [address] | | | | | | [place] | | | | | | [address] | | | | | | | [...] | | care | | | Digital Design Engineer-C | | | | | [...] | | care | | | Digital Design Engineer-C | | | | | [...] | | care | | | Digital Design Engineer-C | | | | | [...] | | care | | | Digital Design Engineer-C | | | | | | | linical | + +--------+ +---+-----+ + + + | Note: Pt will | | check CBG's daily x1 | | Pt will take Lantis as | | prescribed | + + documented as of this encounter Visit Diagnoses Not on filedocumented in this encounter"
--- OUTSIDE RECORDS SUMMARY | ~2019-02-17 | XMS | Encounter Summary ---
Demographics + + + | Address | [address] | | | [place] [address] | + + + | Home Phone [...] Providers + +------+ + | Care Hotel Security Officer Name | Role | Phone [...] 11/13/ | Telephone | [facility] | Charilne Banks, | Care Coordination | | 2019 | | [facility] | Case | | | | | [facility] [address] | Advertising Sales Associate-Clinical | | | | | [facility] [facility] [place], | | | | | | [place] [address] | | | | | | [phone] | | | +--------+ + + + [...] [place] | | | | | | [address] | | | | | | [phone] | | | | | | | | +--------+---------+ + + + | 02/26/ | Office | Urology | Lillie Fowler | | | 2018 | Visit | | [address] | | | | | | [address] | | | | | | [place], [place] | | | | | | [address] | | | | | | [phone] | | | | | | | | +--------+---------+ + + + | 03/16/ | Office | Neurology | Theresa, | | | 2018 | Visit | | [address] | | | | | | [address] [place], | | | | | | [place] [address] | | | | | | [phone] | | | | | | | | +--------+---------+ + + + | 04/12/ | Office | Primary Care | Massimo Ramos | | | 2019 | Visit | | [address] | | | | | | [place] | | | | | | [address] | | | | | | | | +--------+---------+ + + + | 10/03/ | Office | Neurology | Fabián Carias MD | | | 2019 | Visit | | [address] | | | | | | [place] | | | | | | [address] | | | | | | | [...] | | | care | | | Advertising Sales Associate-C | | | | | | [...] | | | care | | | Advertising Sales Associate-C | | | | | | [...] | | | care | | | Advertising Sales Associate-C | | | | | | [...] | | | care | | | Advertising Sales Associate-C | | | | | | [...]
--- OUTSIDE RECORDS SUMMARY | ~2019-02-17 | XMS | Encounter Summary ---
Demographics + + + | Address | [address] | | | [place] [address] | + + + | Home Phone [...] Providers + +------+ + | Care Insurance Coder Name | Role | Phone | + [...] [place] | | | | | | [address] | [place], [place] | | | | | | Phone: | [address] | | | | | | [phone] | Phone: | | | | | | Fax: | [phone] | | | | | | [phone] | Fax: | | | | | | | [phone] | +--------+ + + + + + [...] | | [address] [place], | [address] | (Primary Dx); | | | | [place] [address] | [phone] | Abdominal discomfort | | | | [phone] | | | +--------+ + + + [...] [place] | | | | | | [address] | | | | | | [phone] | | | | | | | | +--------+---------+ + + + | 02/26/ | Office | Urology | Lillie Fowler | | | 2018 | Visit | | LILLIE Lopez [address] | | | | | | [address] | | | | | | [place], [place] | | | | | | [address] | | | | | | [phone] | | | | | | | | +--------+---------+ + + + | 03/16/ | Office | Neurology | Theresa, | | | 2018 | Visit | | [address] | | | | | | [address] [place], | | | | | | [place] [address] | | | | | | [phone] | | | | | | | | +--------+---------+ + + + | 04/12/ | Office | Primary Care | Massimo Ramos Pedro Luis | | | 2019 | Visit | | MD Fer [address] | | | | | | [place] | | | | | | [address] | | | | | | | | +--------+---------+ + + + | 10/03/ | Office | Neurology | Fabián Carias MD | | | 2019 | Visit | | [address] | | | | | | [place] | | | | | | [address] | | | | | | | [...] | | | care | | | Fusion Analyst-C | | | | | | [...] | | Yes | Joceyln, | | management | yle | n of | | | Charline M, | | | | complex | | | Case | | | | care | | | Fusion Analyst-C | | | | | | [...] | | | care | | | Fusion Analyst-C | | | | | | [...] | | | care | | | Fusion Analyst-C | | | | | | [...] | Ordering Provider Lizbeth REDDY Provider - [facility] | [facility] | | /W, ZENON, Colto MANAGEMENT /F Collected Date 20170219 Received | INCYTE | | Date [id number] Completed Date [id number] Specimens: Left shoulder | | | lesion Pre-Op Diagnosis: Painful skin lesion Post-Op Diagnosis: | | | None Given Chart/ID#: [id number] Diagnosis: Skin, left shoulder, | | | [...] | | | examination is performed at [facility], [address], | | | [place] [address]. Microscopic Examination: Microscopic | | | examination by Earl Quiros M.D. User 1 Lab | | | PERFORMING LABORATORY: Tissue processing and slide preparation were | | | performed by [facility], [address] [facility], [place], [place], | | | [address] . Professional interpretation was performed by Ramone Nye | | | PathologyAndrzej [address] [facility] [address], [place] [address]. | | + + + + +---------+ [...]
--- OUTSIDE RECORDS SUMMARY | ~2019-02-17 | XMS | Encounter Summary ---
Demographics + + + | Address | [address] | | | [place] [address] | + + + | Home Phone [...] Team Providers + +------+ + | Care Clean In Places Operator Name | Role | Phone | [...] | | | CENTER [address] | [facility] | | | | | DR [place], [place] | [place] [address] | | | | | [address] | [phone] | | | | | [phone] | | | +--------+ + + + [...] [place] | | | | | | [address] | | | | | | [phone] | | | | | | | | +--------+---------+ + + + | 02/26/ | Office | Urology | Lillie Fowler | | | 2018 | Visit | | [address]IE Lopez [address] | | | | | | [address] | | | | | | [place] | | | | | | [address] | | | | | | [phone] | | | | | | | | +--------+---------+ + + + | 03/16/ | Office | Neurology | Theresa, | | | 2018 | Visit | | [address] | | | | | | [address] [place], | | | | | | [place] [address] | | | | | | [phone] | | | | | | | | +--------+---------+ + + + | 04/12/ | Office | Primary Care | Massimo Ramos | | | 2019 | Visit | | MD Fer [address] | | | | | | [place] | | | | | | [address] | | | | | | | | +--------+---------+ + + + | 10/03/ | Office | Neurology | Fabián Carias MD | | | 2019 | Visit | | [address] | | | | | | [place] | | | | | | [address] | | | | | | | [...] | | | care | | | Hospital Educator-C | | | | | | [...] | | | care | | | Hospital Educator-C | | | | | | [...] | | | care | | | Hospital Educator-C | | | | | | [...] | | | care | | | Hospital Educator-C | | | | | | [...] 3. Mild paranasal sinus disease. JOB #: [id number] Digitally | | | Released by: Drew [...] | | | | | JOB #: [id number] | | Digitally Released by: Drew Lawrence [...] | | | 2. Cardiomegaly. JOB #: [id number] Digitally Released by: Howard | | | [...] | | | | | JOB #: [id number] | | Digitally Released by: Drew Lawrence | | | | | | Read By: DREW LAWRENCE MD | | Date: 10/22/2016 13:05 | | | + + documented in this encounter Visit Diagnoses Not on filedocumented in this encounter"
--- OUTSIDE RECORDS SUMMARY | ~2019-02-17 | XMS | Encounter Summary ---
Demographics + + + | Address | [address] | | | [place] [address] | + + + | Home Phone [...] Team Providers + +------+ + | Care Shuttle Bus Driver Name | Role | Phone | + +------+ + | Ryan Gutiérrez MD | PCP | | + +------+ + Encounter Details +--------+ + + + + | Date | Type | Department | Care Team | Description | +--------+ + + + + | 01/31/ | [facility] RONDE | Horacio Silvestre, | | | 2016 | Encounter | HOSPITAL LABORATORY | DO [address] | | | | | [address] [place] | [place], [place] | | | | | [place], [place] | [address] | | | | | [address] | [phone] | | | | | [phone] | | | +--------+ + + + [...] [place] | | | | | | [address] | | | | | | [phone] | | | | | | | | +--------+---------+ + + + | 02/26/ | Office | Urology | Lillie Fowler | | | 2018 | Visit | | [address]IE Lopez [address] | | | | | | [address] | | | | | | [place] | | | | | | [address] | | | | | | [phone] | | | | | | | | +--------+---------+ + + + | 03/16/ | Office | Neurology | Theresa, | | | 2018 | Visit | | [address] | | | | | | [address] [place], | | | | | | [place] [address] | | | | | | [phone] | | | | | | | | +--------+---------+ + + + | 04/12/ | Office | Primary Care | Massimo Ramos | | | 2019 | Visit | | MD Fer [address] | | | | | | [place] | | | | | | [address] | | | | | | | | +--------+---------+ + + + | 10/03/ | Office | Neurology | Fabián Carias MD | | | 2019 | Visit | | [address] | | | | | | [place] | | | | | | [address] | | | | | | | [...] | | | care | | | Fishing Game Warden-C | | | | | | [...] | | | care | | | Fishing Game Warden-C | | | | | | [...] | | | care | | | Fishing Game Warden-C | | | | | | [...] | | | care | | | Fishing Game Warden-C | | | | | | [...]
--- OUTSIDE RECORDS SUMMARY | ~2019-02-17 | XMS | Encounter Summary ---
Demographics + + + | Address | [address] | | | [place] [address] | + + + | Home Phone [...] Team Providers + +------+ + | Care Laborer [employer] Name | Role | Phone | + [...] | | n | MANAGEMENT [address] | Portable Grinding 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-Clinical | (Primary Dx) | | | | [address] [place] | | | | | | [place] | | | | | | [address] | | | | | | [phone] | | | +--------+ + + + [...] as of this encounter Progress Charline Pascual, Construction Driller-Clinical - 05/29/2018 3:38 PM PSTThis encounter was created in error - please disregard.Electronically signed by Charline Banks Construction Driller-Clinical ludy t 06/02/2018 8:44 AM PSTdocumented in [...] [place] | | | | | | [address] | | | | | | [phone] | | | | | | | | +--------+---------+ + + + | 02/26/ | Office | Urology | Lillie Fowler | | | 2018 | Visit | | [address]IE [address] | | | | | | [address] | | | | | | [place], [place] | | | | | | [address] | | | | | | [phone] | | | | | | | | +--------+---------+ + + + | 03/16/ | Office | Neurology | Theresa, | | | 2018 | Visit | | [address] | | | | | | [address] [place], | | | | | | [place] [address] | | | | | | [phone] | | | | | | | | +--------+---------+ + + + | 04/12/ | Office | Primary Care | Massimo Ramos | | | 2019 | Visit | | MD Fer [address] | | | | | | [place] | | | | | | [address] | | | | | | | | +--------+---------+ + + + | 10/03/ | Office | Neurology | Fabián Carias MD | | | 2019 | Visit | | [address] | | | | | | [place] | | | | | | [address] | | | | | | | [...] | | | care | | | Portable Grinding 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-C | | | | | [...] | | | care | | | Portable Grinding 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-C | | | | | [...] | | | care | | | Portable Grinding 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-C | | | | | [...] | | | care | | | Portable Grinding 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-C | | | | | [...]
--- OUTSIDE RECORDS SUMMARY | ~2019-02-17 | XMS | Encounter Summary ---
Demographics + + + | Address | [address] | | | [place] [address] | + + + | Home Phone [...] Team Providers + +------+ + | Care Collections Clerk Name | Role | Phone | [...] Tereza KAUFFMAN | | | | | [phone] | [place] [address] | | +--------+ + + + + [...] [place] | | | | | | [address] | | | | | | [phone] | | | | | | | | +--------+---------+ + + + | 02/26/ | Office | Urology | Lillie Fowler | | | 2018 | Visit | | [address] | | | | | | [address] | | | | | | [place], [place] | | | | | | [address] | | | | | | [phone] | | | | | | | | +--------+---------+ + + + | 03/16/ | Office | Neurology | Theresa, | | | 2018 | Visit | | [address] | | | | | | [address] [place], | | | | | | [place] [address] | | | | | | [phone] | | | | | | | | +--------+---------+ + + + | 04/12/ | Office | Primary Care | Massimo Ramos | | | 2019 | Visit | | MD Fer [address] | | | | | | [place] | | | | | | [address] | | | | | | | | +--------+---------+ + + + | 10/03/ | Office | Neurology | Fabián Carias MD | | | 2019 | Visit | | [address], [place] | | | | | | [place], [place] | | | | | | [address] | | | | | | | [...] | | | care | | | Equal Employment Opportunity Officer-C | | | | | | [...] | | | care | | | Equal Employment Opportunity Officer-C | | | | | | [...] | | | care | | | Equal Employment Opportunity Officer-C | | | | | | [...] | | | care | | | Equal Employment Opportunity Officer-C | | | | | | [...]
--- OUTSIDE RECORDS SUMMARY | ~2019-02-17 | XMS | Encounter Summary ---
Demographics + + + | Address | [address] | | | [place] [address] | + + + | Home Phone [...] Providers + +------+ + | Care Natural Resources Instructor Name | Role | Phone | [...] | | | | | [place] | [address] | [place], [place] | | | | | | Phone: | [address] | | | | | | [phone] | Phone: | | | | | | Fax: | [phone] | | | | | | [phone] | Fax: | | | | | | | [phone] | + + + + + + [...] | Diagnoses | [place] | [facility] | | | | | | [place] | Regional | | | | | Office/outpa | MEDICAL | Primary Care | | | | | tient visit | CENTER [address] | [address] | | | | | est | [address] | [place] | | | | | [address], | [address] | [address] | | | | | Authorized | [address] [place] | Phone: | | | | | For any | [place], [place] | [phone] | | | | | clinically | [address] | Fax: | | | | | necessary | Phone: | [phone] | | | | | Visits for | [phone] | | | | | | 365 days | Fax: | | | | | | AUTH NO: | [phone] | | | | | | [phone] | | | +--------+--------+ + + + + Encounter Details +--------+---------+ + + + | Date | Type | Department | Care Team | Description | +--------+---------+ + + + | 09/09/ | Office | [place] [facility] | Horacio Silvestre, | Type 2 diabetes | | 2019 | Visit | [facility] | DO [address] | mellitus with | | | | [facility] [address] | [facility], [place] | diabetic | | | | [address] [place], | [address] | polyneuropathy, with | | | | [place] [address] | [phone] | long-term current | | | | [phone] | | use of insulin (HCC) | [...] of | | | | | | che[place]nak coronary | | | | | | artery of che[place] | | | | | | heart without angina | | | | | | pectoris; Insomnia | | | | | | secondary to chronic | | | | | | pain; [facility] | | | | | | current [...] Surgery - AMB Referral 4. 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 Insomnia secondary to chronic pain - traZODone (DESYREL) 100 mg tablet; Take 1 tablet by mouth nightly. 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 Current [...] CATARACT REMOVAL; Surgeon: Tay Kern MD; Location: [facility] MOHS SURGERY [...] [place] | | | | | | [address] | | | | | | [phone] | | | | | | | | +--------+---------+ + + + | 02/26/ | Office | Urology | Lillie Fowler | | | 2018 | Visit | | [address] | | | | | | [address] | | | | | | [place], [place] | | | | | | [address] | | | | | | [phone] | | | | | | | | +--------+---------+ + + + | 03/16/ | Office | Neurology | Theresa, | | | 2018 | Visit | | [address] | | | | | | [address] [place], | | | | | | [place] [address] | | | | | | [phone] | | | | | | | | +--------+---------+ + + + | 04/12/ | Office | Primary Care | Massimo Ramos | | | 2019 | Visit | | MD Fer [address] | | | | | | DR [place], [place] | | | | | | [address] | | | | | | | | +--------+---------+ + + + | 10/03/ | Office | Neurology | Fabián Carias MD | | | 2020 | Visit | | [address] | | | | | | [place] | | | | | | [address] | | | | | | | [...] | | | care | | | Media Job Titles-C | | | | | | | [...] | | | care | | | Media Job Titles-C | | | | | | | [...] | | | care | | | Media Job Titles-C | | | | | | | [...] | | | care | | | Media Job Titles-C | | | | | | | [...] hemorrhage) | + + | Atherosclerosis of chefornak coronary artery of chefornak heart without angina pectoris | + + | Insomnia secondary to chronic pain Other chronic pain | + + | 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
--- OUTSIDE RECORDS SUMMARY | ~2019-02-17 | XMS | Encounter Summary ---
Demographics + + + | Address | [address] | | | [place] [address] | + + + | Home Phone [...] Team Providers + +------+ + | Care Children'S Program Coordinator Name | Role | Phone | [...] | | | [address] [place], | [address] | | | | | [place] [address] | [phone] | | | | | [phone] | | | +--------+ + + + [...] [place] | | | | | | [address] | | | | | | [phone] | | | | | | | | +--------+---------+ + + + | 02/26/ | Office | Urology | Lillie Fowler | | | 2018 | Visit | | [address] | | | | | | [address] | | | | | | [place], [place] | | | | | | [address] | | | | | | [phone] | | | | | | | | +--------+---------+ + + + | 03/16/ | Office | Neurology | Theresa, | | | 2018 | Visit | | [address] | | | | | | [address] [place], | | | | | | [place] [address] | | | | | | [phone] | | | | | | | | +--------+---------+ + + + | 04/12/ | Office | Primary Care | Massimo Ramos | | | 2019 | Visit | | MD Fer [address] | | | | | | [address] [place], [place] | | | | | | [address] | | | | | | | | +--------+---------+ + + + | 10/03/ | Office | Neurology | Fabián Carias MD | | | 2019 | Visit | | [address] | | | | | | [place] | | | | | | [address] | | | | | | | [...] | | | care | | | Silverware Supervisor-C | | | | | | [...] | | | care | | | Silverware Supervisor-C | | | | | | [...] | | | care | | | Silverware Supervisor-C | | | | | | [...] | | | care | | | Silverware Supervisor-C | | | | | | | linical | + +--------+ +---+-----+ + + + | Note: Pt will | | check CBG's daily x1 | | Pt will take Lantis as | | prescribed | + + documented as of this encounter Visit Diagnoses Not on filedocumented in this encounter"
--- OUTSIDE RECORDS SUMMARY | ~2019-02-17 | XMS | Encounter Summary ---
Demographics + + + | Address | [address] | | | [place] [address] | + + + | Home Phone [...] Team Providers + +------+ + | Care Trainmaster Name | Role | Phone | + [...] | | [address] [place], [place] | [place], [place] | | | | | [address] | [address] | | | | | [phone] | | | +--------+ + + + [...] [place] | | | | | | [address] | | | | | | [phone] | | | | | | | | +--------+---------+ + + + | 02/26/ | Office | Urology | Lillie Fowler | | | 2018 | Visit | | [address] | | | | | | [address] | | | | | | [place] | | | | | | [address] | | | | | | [phone] | | | | | | | | +--------+---------+ + + + | 03/16/ | Office | Neurology | Theresa, | | | 2018 | Visit | | [address] | | | | | | [address] [place], | | | | | | [place] [address] | | | | | | [phone] | | | | | | | | +--------+---------+ + + + | 04/12/ | Office | Primary Care | Massimo Ramos | | | 2019 | Visit | | MD Fer [address] | | | | | | [place] | | | | | | [address] | | | | | | | | +--------+---------+ + + + | 10/03/ | Office | Neurology | Fabián Carias MD | | | 2019 | Visit | | [address] | | | | | | [place] | | | | | | [address] | | | | | | | [...] | | | care | | | Almond Huller-C | | | | | | | [...] | | | care | | | Almond Huller-C | | | | | | | [...] | | | care | | | Almond Huller-C | | | | | | | [...] | | | care | | | Almond Huller-C | | | | | | | linical | + +--------+ +---+-----+ + + + | Note: Pt will | | check CBG's daily x1 | | Pt will take Lantis as | | prescribed | + + documented as of this encounter Visit Diagnoses Not on filedocumented in this encounter"
--- OUTSIDE RECORDS SUMMARY | ~2019-02-17 | XMS | Encounter Summary ---
Demographics + + + | Address | [address] | | | [place] [address] | + + + | Home Phone [...] Team Providers + +------+ + | Care Cane Feeder Name | Role | Phone | [...] | [facility] [address] | [facility], [place] | | | | | [address] [place], | [address] | | | | | [place] [address] | [phone] | | | | | [phone] | | | +--------+--------+ + + + [...] [place] | | | | | | [address] | | | | | | [phone] | | | | | | | | +--------+---------+ + + + | 02/26/ | Office | Urology | Lillie Fowler | | | 2018 | Visit | | [address] | | | | | | [address] | | | | | | [place], [place] | | | | | | [address] | | | | | | [phone] | | | | | | | | +--------+---------+ + + + | 03/16/ | Office | Neurology | Theresa, | | | 2018 | Visit | | [address] | | | | | | [address] [place], | | | | | | [place] [address] | | | | | | [phone] | | | | | | | | +--------+---------+ + + + | 04/12/ | Office | Primary Care | Massimo Ramos | | | 2019 | Visit | | MD Fer [address] | | | | | | [place] | | | | | | [address] | | | | | | | | +--------+---------+ + + + | 10/03/ | Office | Neurology | Fabián Carias MD | | | 2019 | Visit | | [address] | | | | | | [place] | | | | | | [address] | | | | | | | [...] | | | care | | | Repairer Switchgear-C | | | | | | | [...] | | | care | | | Repairer Switchgear-C | | | | | | | [...] | | | care | | | Repairer Switchgear-C | | | | | | | [...] | | | care | | | Repairer Switchgear-C | | | | | | | [...] | | unspecified | + + | 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
--- OUTSIDE RECORDS SUMMARY | ~2019-02-17 | XMS | Encounter Summary ---
Demographics + + + | Address | [address] | | | [place] [address] | + + + | Home Phone [...] Team Providers + +------+ + | Care Patch Press Operator Name | Role | Phone [...] | | | | other organs | [address] | [place], [place] | | | | | and systems | Phone: | [address] | | | | | | [phone] | Phone: | | | | | | Fax: | [phone] | | | | | | [phone] | Fax: | | | | | | | [phone] | +--------+ + + + + + [...] Services | | Abnormal | Renato L, MERGERS AND ACQUISITIONS BANKER | Urology [address] | | | Required | | results of | [address] | [address] | | | | | function | [address] [place] | [place] | | | | | studies of | [place], [place] | [place] | | | | | other organs | [address] | [address] | | | | | and systems | Phone: | Phone: | | | | | Procedures | [phone] | [phone] | | | | | [place] | Fax: | Fax: | | | | | | [phone] | [phone] | + + + + + + [...] health | | 2019 | Visit | [facility] | MERGERS AND ACQUISITIONS BANKER [address] | care (Primary Dx); | | | | MEDICAL CLIN[facility] [address] | [place] [address] | Opioid use | | | | [address] [place], | [phone] | | | | | [place] [address] | | | | | | [phone] | | | +--------+---------+ + + + [...] [place] | | | | | | [address] | | | | | | [phone] | | | | | | | | +--------+---------+ + + + | 02/26/ | Office | Urology | Lillie Fowler | | | 2018 | Visit | | [address] | | | | | | [address] | | | | | | [place], [place] | | | | | | [address] | | | | | | [phone] | | | | | | | | +--------+---------+ + + + | 03/16/ | Office | Neurology | Theresa, | | | 2018 | Visit | | [address] | | | | | | [address] [place], | | | | | | [place] [address] | | | | | | [phone] | | | | | | | | +--------+---------+ + + + | 04/12/ | Office | Primary Care | Richard Massimo Pedro Luis | | | 2019 | Visit | | MD Fer [address] | | | | | | [place] | | | | | | [address] | | | | | | | | +--------+---------+ + + + | 10/03/ | Office | Neurology | Fabián Carias MD | | | 2019 | Visit | | [address] | | | | | | [place] | | | | | | [address] | | | | | | | [...] | | | care | | | Coil Strapper-C | | | | | | | [...] | | | care | | | Coil Strapper-C | | | | | | | [...] | | | care | | | Coil Strapper-C | | | | | | | [...] | | | care | | | Coil Strapper-C | | | | | | | [...] + | PSA, TOTAL PERFORMED ON ADVIA Victoria PlumbAUR XP. TEST RESULT MAY NOT | [facility] | | CORRELATE WITH OTHER INSTRUMENTS. | HOSPITAL | | | LABORATORY | + + + + + + + + | Performing | Address | City/State/Zipcode | Phone Number | | Organization | | | | + + + + + | [facility] | [address] | [place] [address] | [phone] | | HOSPITAL LABORATORY | | | | + + + + + documented in this encounter Visit Diagnoses + + | Diagnosis | + + | Preventative health care - Primary Routine general medical examination at a [facility] | | care facility | + + [...]
--- OUTSIDE RECORDS SUMMARY | ~2019-02-17 | XMS | Encounter Summary ---
Demographics + + + | Address | [address] | | | [place] [address] | + + + | Home Phone [...] Team Providers + +------+ + | Care Solutions Delivery Consultant Name | Role | Phone | [...] HOSPITAL HEMATOLOGY | MD [address] | ([facility]) | | | | ONCOLOGY [address] | [address] | | | | | [place], [place] | [place] | | | | | [address] | [address] | | | | | [phone] | [phone] | | | | | | | [...] [place] | | | | | | [address] | | | | | | [phone] | | | | | | | | +--------+---------+ + + + | 02/26/ | Office | Urology | Lillie Fowler | | | 2018 | Visit | | LILLIE Lopez [address] | | | | | | [address] | | | | | | [place], [place] | | | | | | [address] | | | | | | [phone] | | | | | | | | +--------+---------+ + + + | 03/16/ | Office | Neurology | Theresa, | | | 2018 | Visit | | SHONDA Mckinney [address] [place], | | | | | | [place] [address] | | | | | | [phone] | | | | | | | | +--------+---------+ + + + | 04/12/ | Office | Primary Care | Massimo Ramos | | | 2019 | Visit | | MD Fer [address] | | | | | | [address] [place] | | | | | | [address] | | | | | | | | +--------+---------+ + + + | 10/03/ | Office | Neurology | Fabián Carias MD | | | 2019 | Visit | | [address] | | | | | | [place] | | | | | | [address] | | | | | | | [...] | | | care | | | [employer] | | | | | | [...] | | | care | | | Multimedia Instructional [employer]er-C | | | | | | [...] | | | care | | | Multimedia Instructional Designer-Shivani | | | | | | | [...] | | | care | | | Multimedia Instructional Designer-C | | | | | | [...]
--- OUTSIDE RECORDS SUMMARY | ~2019-02-17 | XMS | Encounter Summary ---
Demographics + + + | Address | [address] | | | [place] [address] | + + + | Home Phone [...] Team Providers + +------+ + | Care Websphere Developer Name | Role | Phone | [...] | 2017 | | [facility] | [address] | | | | | MEDICAL CL[facility] [address] | [facility], [place] | | | | | [address] [place], | [address] | | | | | [place] [address] | [phone] | | | | | [phone] | | | +--------+--------+ + + + [...] [place] | | | | | | [address] | | | | | | [phone] | | | | | | | | +--------+---------+ + + + | 02/26/ | Office | Urology | Lillie Fowler | | | 2019 | Visit | | LILLIE Lopez [address] | | | | | | [address] | | | | | | [place], [place] | | | | | | [address] | | | | | | [phone] | | | | | | | | +--------+---------+ + + + | 03/16/ | Office | Neurology | Theresa, | | | 2018 | Visit | | [address] | | | | | | [address] [place], | | | | | | [place] [address] | | | | | | [phone] | | | | | | | | +--------+---------+ + + + | 04/12/ | Office | Primary Care | Massimo Ramos Pedro Luis | | | 2019 | Visit | | MD Fer [address] | | | | | | [place] | | | | | | [address] | | | | | | | | +--------+---------+ + + + | 10/03/ | Office | Neurology | Fabián Carias MD | | | 2019 | Visit | | [address] | | | | | | [place] | | | | | | [address] | | | | | | | [...] | | care | | | Brass Burnisher-C | | | | | | | [...] | | care | | | Brass Burnisher-C | | | | | | | [...] | | care | | | Brass Burnisher-C | | | | | | | [...] | | care | | | Brass Burnisher-C | | | | | | | [...]
--- OUTSIDE RECORDS SUMMARY | ~2019-02-17 | XMS | Encounter Summary ---
Demographics + + + | Address | [address] | | | [place] [address] | + + + | Home Phone [...] Team Providers + +------+ + | Care Robotics Engineer Name | Role | Phone | [...] | | [address] [place], [place] | [place] [address] | | | | | [address] | [phone] | | | | | [phone] | | | +--------+ + + + [...] [place] | | | | | | [address] | | | | | | [phone] | | | | | | | | +--------+---------+ + + + | 02/26/ | Office | Urology | Lillie Fowler | | | 2018 | Visit | | LILLIE Lopez [address] | | | | | | [address] | | | | | | [place], [place] | | | | | | [address] | | | | | | [phone] | | | | | | | | +--------+---------+ + + + | 03/16/ | Office | Neurology | Theresa, | | | 2018 | Visit | | [address] | | | | | | [address] [place], | | | | | | [place] [address] | | | | | | [phone] | | | | | | | | +--------+---------+ + + + | 04/12/ | Office | Primary Care | Massimo Ramos | | | 2019 | Visit | | MD Fer [address] | | | | | | [place] | | | | | | [address] | | | | | | | | +--------+---------+ + + + | 10/03/ | Office | Neurology | Fabián Carias MD | | | 2019 | Visit | | [address] | | | | | | [place] | | | | | | [address] | | | | | | | [...] | | | care | | | Sighter-C | | | | | | | [...] | | | care | | | Sighter-C | | | | | | | [...] | | | care | | | Sighter-C | | | | | | | [...] | | | care | | | Sighter-C | | | | | | | linical | + +--------+ +---+-----+ + + + | Note: Pt will | | check CBG's daily x1 | | Pt will take Lantis as | | prescribed | + + documented as of this encounter Visit Diagnoses Not on filedocumented in this encounter"
--- OUTSIDE RECORDS SUMMARY | ~2019-02-17 | XMS | Encounter Summary ---
Demographics + + + | Address | [address] | | | [place] [address] | + + + | Home Phone [...] Providers + +------+ + | Care Medical Associate Name | Role | Phone | [...] | Procedures | [address] | [address] | | | | | ECHO | [place], [place] | Phone: | | | | | Complete | [address] | [phone] | | | | | | Phone: | Fax: | | | | | | [phone] | [phone] | | | | | | Fax: | | | | | | | [phone] | | +--------+--------+ + + + + [...] | Procedures | [address] | [address] | | | | | MRI Brain | [place], [place] | Phone: | | | | | wo Contrast | [address] | [phone] | | | | | | Phone: | Fax: | | | | | | [phone] | [phone] | | | | | | Fax: | | | | | | | [phone] | | +--------+--------+ + + + + [...] | | | DR [place], | [address] | diabetes mellitus | | | | [place] [address] | | with diabetic | | | | [phone] | | polyneuropathy, with | | | | | | long-term current | | | | | | use of insulin | | | | | | ([facility]); Syncope and | | | | [...] be different from the original. Patient Instructions [facility] Neurology Clinic Dr. Jalyn Carias, Neurologist Date:05/19/2018 [...] le, and scrabble, other puzzle games like Inside Jobs, MyCityWay. Play computer/mobile applications such as Setgo and Health Plan One Discontinue ASA switch to Plavix 75 mg daily for stroke prophylaxis Continue Lyrica for neuropathic pain Any Questions please call JAMAAL Marroquin or Dr. Carias at [facility] Neurology Clinic General Neck and Back [...] are taking other medicines. You may use vekx-pff-mezsqem medicine to control pain, unless another pain [...] by your healthcare provider Date Last Reviewed: 10/06/201519999625-[address] [place] [address]. All righ ts reserved. This information is [...] use ice several times a day. ?Medicines Mmpf-ozy-notssem pain relievers can includeacetaminophen and anti-inflammatory medicines, [...] a heating p ad. Date Last Reviewed: 12/06/201419996906-[address] [place] [address]. All righ ts reserved. This information is [...] changes. You will work closely with your [facility] provider to find a treatment plan [...] are needed. Resources For more information, contact: [place] Headache and Migraine Associationjames.[email or web address] or [phone] [place] Chronic Pain Association, theacpa.org or [phone] Date Last Reviewed: 11/05/201619999744-2977 [employer]. [address] [place] [address]. All [facility] center[facility] ts reserved. This information is not intended [...] medicines for your pain. You may use rctd-xcc-olhvdoe or prescription medici claudio. You may need [...] your needs. This may include: Stretching and hsdrm-ws-pdlshj exercises Low-impact exercise such as walking, biking, [...] more support and information, contact these groups: [place] Academy of Pain Management, www.aapainmanage.org [place] Academy of Pain Medicine, www.painmed.org [place] Chronic Pain Association, www.theacpa.org National Pain Foundation, www.thenationalpainfoundation.org Date Last Reviewed: 03/07/201719994796-0006 [employer] [employer]. [address] [place] [address], [place] [address]. All righ ts reserved. This information is [...] and need help quitting, talk to your [facility] team. Testing your blood sugar [...] cut down on salt. A dietitian or life skills educator can help form a meal plan [...] lab tests as scheduled. Date Last Reviewed: 08/24/201519999728-9290 [facility] [employer]. [address] [place] [address], [place] [address]. All righ ts reserved. This information is not intended as a substitute for professional medical care. Always follow your healthcare professional's instructions. documented in this encounter Progress Notes Jalyn Carias MD - 05/19/2018 2:45 PM PST Patient: Geraldo Mcfadden Medical Record: [id number] Date of Services: 05/19/2018 Referring Doctor: Horacio [...] acupuncture treatments, massage therapy, relaxation therapy, ove c-gjh-wkcmawq creams and patches, and cortisone shots. Patient [...] He was seen in the ER at [facility] and had a CT scan of the [...] and oriented to time, place, and person. [facility] is fluent. Memory, attention, comprehension, and general [...] CEREBELLAR EXAMINATION: There is no dysmetria on iiyzjl-wk-blkq test. MISCELLANEOUS EXAM: Atraumatic, no evidence of [...] degenerative spine disease, acitve Plan: Patient Instructions [facility] Neurology Clinic Dr. Jalyn Carias, Neurologist Date:05/19/2018 [...] such as cross word puzz le, and scrWealink.comble, other puzzle games like Inside Jobs, MyCityWay. Play computer/mobile applications such as Setgo and MIND GAMES Discontinue ASA switch to Plavix 75 mg daily for stroke prophylaxis Continue Lyrica for neuropathic pain Any Questions please call JAMAAL Marroquin or Dr. Carias at [facility] Neurology Clinic General Neck and Back [...] are taking other medicines. You may use cxkf-epb-uhvyzga medicine to control pain, unless another pain [...] by your healthcare provider Date Last Reviewed: 10/06/201519998937-[address] [place] [address], [place] [address]. All righ ts reserved. This information is [...] use ice several times a day. ?Medicines Qwzj-iel-cthylbc pain relievers can includeacetaminophen and anti-inflammatory medicines, [...] a heating p ad. Date Last Reviewed: 12/06/201419995909-5999 [facility] [employer] [place] [address], [place] [address]. All [facility] ts reserved. This information is not [...] changes. You will work closely with your [facility] care provider to find a treatment plan that [...] are needed. Resources For more information, contact: [place] Headache and Migraine Association, [email or web address].[email or web address] or [phone] [place] Chronic Pain Association, theacpa.org or [phone] Date Last Reviewed: 11/05/201619999528-[address] [place] [address], [place] [address]. All righ ts reserved. This information is [...] medicines for your pain. You may use fldf-rdv-wyiiegl or prescription medici claudio. You may need [...] your needs. This may include: Stretching and ccvze-mf-bxcqon exercises Low-impact exercise such as walking, biking, [...] more support and information, contact these groups: [place] Academy of Pain Management, www.aapainmanage.org [place] Academy of Pain Medicine, www.painmed.org [place] Chronic Pain Association, www.theacpa.org National Pain Foundation, www.thenationalpainfoundation.org Date Last Reviewed: 03/07/201719993961-[address] [place] [address], [place] [address]. All righ ts reserved. This information is [...] and need help quitting, talk to your [facility] team. Testing your blood sugar [...] cut down on salt. A dietitian or life skills educator can help form a meal plan that works for you even if you are on a low budget. Being activecan help reduce your weight, strengthen your heart, and lower your lipid l evels and blood pressure. Exercise and activity are good for your whole body. Talk to your [facility] care team about increasing your activity safely over time. Keeping your appointmentswith your healthcare provider helps you stay healthy. Go in f or checkups and lab tests as scheduled. Date Last Reviewed: 08/24/201519999763-[address] [place] [address], [place] [address]. All righ ts reserved. This information is not intended as a substitute for professional medical care. Always follow your healthcare professional's instructions. Jalyn Carias MD05/19/201815:18 Electronically signed NOTE: Part of this report was transcribed using voice recognition software. Every effort was made to ensure accuracy. However, inadvertent computerize oil process stillman errors may be present documented in this [...] [place] | | | | | | [address] | | | | | | [phone] | | | | | | | | +--------+---------+ + + + | 02/26/ | Office | Urology | Lillie Fowler | | | 2018 | Visit | | [address]ILLIE Lopez [address] | | | | | | [address] | | | | | | [place] | | | | | | [address] | | | | | | [phone] | | | | | | | | +--------+---------+ + + + | 03/16/ | Office | Neurology | Theresa, | | | 2018 | Visit | | [address] | | | | | [address] [place], | | | | | | [place] [address] | | | | | | [phone] | | | | | | | | +--------+---------+ + + + | 04/12/ | Office | Primary Care | Massimo Ramos | | | 2019 | Visit | | MD Fer [address] | | | | | | [place], [place] | | | | | | [address] | | | | | | | | +--------+---------+ + + + | 10/03/ | Office | Neurology | Jalyn Carias MD | | | 2019 | Visit | | [address] | | | | | | [place] | | | | | | [address] | | | | | | | [...] | care | | | High School Social Studies Tutor-C | | | | | | [...] | care | | | High School Social Studies Tutor-C | | | | | | [...] | care | | | High School Social Studies Tutor-C | | | | | | [...] | care | | | High School Social Studies Tutor-C | | | | | | [...] JALYN CARIAS M.D. | | | Neurologist [phone] Electronically signed NOTE: Part of | | | this report was transcribed using voice recognition | | | software. Every effort was made to ensure | | | accuracy. However, inadvertent computerize | | | oil process stillman errors may be present | | + [...]
--- OUTSIDE RECORDS SUMMARY | ~2019-02-17 | XMS | Encounter Summary ---
Demographics + + + | Address | [address] | | | [place] [address] | + + + | Home Phone [...] Providers + +------+ + | Care Parks And Recreation Manager Name | Role | Phone | [...] [facility] | DO [address] | | | | | MEDICAL CLIN[facility] [address] | [facility], [place] | | | | | [address] [place], | [address] | | | | | [place] [address] | [phone] | | | | | [phone] | | | +--------+ + + + [...] [place] | | | | | | [address] | | | | | | [phone] | | | | | | | | +--------+---------+ + + + | 02/26/ | Office | Urology | Lillie Fowler | | | 2018 | Visit | | [address]ILLIE [address] | | | | | | [address] | | | | | | [place], [place] | | | | | | [address] | | | | | | [phone] | | | | | | | | +--------+---------+ + + + | 03/16/ | Office | Neurology | Theresa, | | | 2018 | Visit | | [address] | | | | | | [address] [place], | | | | | | [place] [address] | | | | | | [phone] | | | | | | | | +--------+---------+ + + + | 04/12/ | Office | Primary Care | Massimo Ramos | | | 2019 | Visit | | MD Fer [address] | | | | | | [place] | | | | | | [address] | | | | | | | | +--------+---------+ + + + | 10/03/ | Office | Neurology | Fbaián Carias MD | | | 2019 | Visit | | [address] | | | | | | [place] | | | | | | [address] | | | | | | | [...] | | care | | | Media Director-C | | | | | | [...] | | care | | | Media Director-C | | | | | | [...] | | care | | | Media Director-C | | | | | | [...] | | care | | | Media Director-C | | | | | | [...]
--- OUTSIDE RECORDS SUMMARY | ~2019-02-17 | XMS | Encounter Summary ---
Demographics + + + | Address | [address] | | | [place] [address] | + + + | Home Phone [...] Team Providers + +------+ + | Care Semiconductor Wafers Tester Name | Role | Phone | [...] Orders; | | 2019 | | [facility] | [address] [facility] [address] [place] | Home Health | | | | MEDICAL CLINIC [address] | [facility], [place] | | | | | [address] [facility], | [address] | | | | | [place] [address] | [phone] | | | | | [phone] | | | +--------+ + + + [...] [place] | | | | | | [address] | | | | | | [phone] | | | | | | | | +--------+---------+ + + + | 02/26/ | Office | Urology | Lillie Fowler | | | 2018 | Visit | | [address] | | | | | | [address] | | | | | | [place], [place] | | | | | | [address] | | | | | | [phone] | | | | | | | | +--------+---------+ + + + | 03/16/ | Office | Neurology | Theresa, | | | 2018 | Visit | | [address] | | | | | | [address] [place], | | | | | | [place] [address] | | | | | | [phone] | | | | | | | | +--------+---------+ + + + | 04/12/ | Office | Primary Care | Massimo Ramos Pedro Luis | | | 2019 | Visit | | MD Fer [address] | | | | | | [place] | | | | | | [address] | | | | | | | | +--------+---------+ + + + | 10/03/ | Office | Neurology | Fabián Carias MD | | | 2019 | Visit | | [address] | | | | | | [place] | | | | | | [address] | | | | | | | [...] | | care | | | Customer Relations Assistant-C | | | | | | [...] | | care | | | Customer Relations Assistant-C | | | | | | [...] | | care | | | Customer Relations Assistant-C | | | | | | [...] | | care | | | Customer Relations Assistant-C | | | | | | [...]
--- OUTSIDE RECORDS SUMMARY | ~2019-02-17 | XMS | Encounter Summary ---
Demographics + + + | Address | [address] | | | [place] [address] | + + + | Home Phone [...] Team Providers + +------+ + | Care Cream Buyer Name | Role | Phone | [...] | DO [address] [place] | mail ) | | | | MEDICAL CLINIC [address] | [facility], [place] | | | | | [facility], | [address] | | | | | [place] [address] | [phone] | | | | | [phone] | | | +--------+ + + + [...] 01/30/2017 3:18 PM PDTOXYCODONE 5MG SENT To: [facility] ADDRESS: [address] [place] [address] TRACKING No: [id number] [...] [place] | | | | | | [address] | | | | | | [phone] | | | | | | | | +--------+---------+ + + + | 02/26/ | Office | Urology | Lillie Fowler | | | 2018 | Visit | | [address]IE [address] | | | | | | [address] | | | | | | [place], [place] | | | | | | [address] | | | | | | [phone] | | | | | | | | +--------+---------+ + + + | 03/16/ | Office | Neurology | Theresa, | | | 2018 | Visit | | [address] | | | | | | [address] [place], | | | | | | [place] [address] | | | | | | [phone] | | | | | | | | +--------+---------+ + + + | 04/12/ | Office | Primary Care | Massimo Ramos Pedro Luis | | | 2019 | Visit | | MD Fer [address] | | | | | | [place] | | | | | | [address] | | | | | | | | +--------+---------+ + + + | 10/03/ | Office | Neurology | Fabián Carias MD | | | 2019 | Visit | | [address] | | | | | | [place] | | | | | | [address] | | | | | | | [...] | | care | | | Service Crew Leader-C | | | | | | [...] | | care | | | Service Crew Leader-C | | | | | | [...] | | care | | | Service Crew Leader-C | | | | | | [...] | | care | | | Service Crew Leader-C | | | | | | | linical | + +--------+ +---+-----+ + + + | Note: Pt will | | check CBG's daily x1 | | Pt will take Lantis as | | prescribed | + + documented as of this encounter Visit Diagnoses Not on filedocumented in this encounter"
--- OUTSIDE RECORDS SUMMARY | ~2019-02-17 | XMS | Encounter Summary ---
Demographics + + + | Address | [address] | | | [place] [address] | + + + | Home Phone [...] Team Providers + +------+ + | Care Pain Coordinator Name | Role | Phone | [...] + | 10/31/ | Refill | [place] | Horacio Silvestre, | Medication Refill | | 2017 | | [facility] | [address] | | | | | MEDICAL CLINIC [address] | [facility], [place] | | | | | [address] [place], | [address] | | | | | [place] [address] | [phone] | | | | | [phone] | | | +--------+--------+ + + + [...] [place] | | | | | | [address] | | | | | | [phone] | | | | | | | | +--------+---------+ + + + | 02/26/ | Office | Urology | Lillie Fowler | | | 2018 | Visit | | [address]IE [address] | | | | | | [address] | | | | | | [place], [place] | | | | | | [address] | | | | | | [phone] | | | | | | | | +--------+---------+ + + + | 03/16/ | Office | Neurology | Theresa, | | | 2018 | Visit | | [address] | | | | | [address] [place], | | | | | | [place] [address] | | | | | | [phone] | | | | | | | | +--------+---------+ + + + | 04/12/ | Office | Primary Care | Massimo Ramos | | | 2019 | Visit | | MD Fer [address] | | | | | | [place] | | | | | | [address] | | | | | | | | +--------+---------+ + + + | 10/03/ | Office | Neurology | Fabián Carias MD | | | 2019 | Visit | | [address] | | | | | | [place] | | | | | | [address] | | | | | | | [...] | | | care | | | Furnace Door Tender-C | | | | | | [...] | | | care | | | Furnace Door Tender-C | | | | | | [...] | | | care | | | Furnace Door Tender-C | | | | | | [...] | | | care | | | Furnace Door Tender-C | | | | | | [...] unspecified | + + | long term current 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
--- OUTSIDE RECORDS SUMMARY | ~2019-02-17 | XMS | Encounter Summary ---
Demographics + + + | Address | [address] | | | [place] [address] | + + + | Home Phone [...] Team Providers + +------+ + | Care Marinator Name | Role | Phone | + [...] [place], [place] | | | | | [address] | [address] | | | | | [phone] | [phone] | | | | | | | [...] #30. He is discharged in stable condition. [facility] Signed and Approved by: ROMARIO GALLAGHER [...] [place] | | | | | | [address] | | | | | | [phone] | | | | | | | | +--------+---------+ + + + | 02/26/ | Office | Urology | Lillie Fowler | | | 2018 | Visit | | [address]IE [address] | | | | | | [address] | | | | | | [place] | | | | | | [address] | | | | | | [phone] | | | | | | | | +--------+---------+ + + + | 03/16/ | Office | Neurology | Theresa, | | | 2019 | Visit | | [address] | | | | | | [address] [place], | | | | | | [place] [address] | | | | | | [phone] | | | | | | | | +--------+---------+ + + + | 04/12/ | Office | Primary Care | Massimo Ramos | | | 2019 | Visit | | MD Fer [address] | | | | | | [place] | | | | | | [address] | | | | | | | | +--------+---------+ + + + | 10/03/ | Office | Neurology | Fabián Carias MD | | | 2019 | Visit | | [address] | | | | | | [place] | | | | | | [address] | | | | | | | [...] | | | care | | | Healthcare Economics Consultant-C | | | | | | [...] | | | care | | | Healthcare Economics Consultant-C | | | | | | [...] | | | care | | | Healthcare Economics Consultant-C | | | | | | [...] | | | care | | | Healthcare Economics Consultant-C | | | | | | [...]
--- OUTSIDE RECORDS SUMMARY | ~2019-02-17 | XMS | Encounter Summary ---
Demographics + + + | Address | [address] | | | [place] [address] | + + + | Home Phone [...] Team Providers + +------+ + | Care Consulting Group Analyst Name | Role | Phone | [...] | | | | [place] | [address] | | | | | [address] | | | | | | [phone] | | | +--------+ + + + [...] Jalyn Carias MD - 04/10/2015 11:21 AM [facility] Dictating Practitioner: JALYN CARIAS MD Patient Name: LISA MCFADDEN Patient Date of : 1940 Visit Number: [id number] DISCHARGE SUMMARY The patient was seen at [...] or fasciculations. CEREBELLAR EXAMINATION: Able to perform [id number] with no significant tremors. SENSORY EXAMINATION: Mildly [...] REFUGIO Jovel in 2-3 weeks at the [place]. Followup with me Dr. Farzad Carias in 5-6 weeks. Otherwise the patient is neurologically stable. The patient was given copies of his above tests. Many thanks for allowing me to participate in the care of this patient. Cc: REFUGIO [place] [id number] / [id number] Dictation Date/Time: April 11, 2015 06:04PM Financial Auditor Date/Time: April 12, 2015 10:51AM Authenticated and Edited by Jalyn Carias MD On 04/12/15 8:51:05 PM [facility] Signed and Approved by: JALYN CARIAS MD [...] [place] | | | | | | [address] | | | | | | [phone] | | | | | | | | +--------+---------+ + + + | 02/26/ | Office | Urology | Lillie Fowler | | | 2018 | Visit | | [address] | | | | | | [address] | | | | | | [place] | | | | | | [address] | | | | | | [phone] | | | | | | | | +--------+---------+ + + + | 03/16/ | Office | Neurology | Theresa, | | | 2018 | Visit | | [address] | | | | | | [address] [place], | | | | | | [place] [address] | | | | | | [phone] | | | | | | | | +--------+---------+ + + + | 04/12/ | Office | Primary Care | Massimo Ramos | | | 2019 | Visit | | MD Fer [address] | | | | | | [address] [place] | | | | | | [address] | | | | | | | [...] | | | care | | | Doper Operator-C | | | | | | [...] | | | care | | | Doper Operator-C | | | | | | [...] | | | care | | | Doper Operator-C | | | | | | [...] | | | care | | | Doper Operator-C | | | | | | [...] at 7:15 p.m. D: | | 04/10/2015Job#: [id number] Read By: MASSIMO NUNEZ MD Released By: [...] stenosis identified. | | | Job No.: [id number] Read By: MASSIMO NUNEZ MD | | [...] | | significant stenosis identified. Job No.: [id number] Read By: MASSIMO Fung | | MD [...] | | | | | |Job No.: [id number] | | | |Read By: MASSIMO NUNEZ [...] mIU/L | LAB | | | | [facility]. | | | | | | [...]
--- OUTSIDE RECORDS SUMMARY | ~2019-02-17 | XMS | Encounter Summary ---
Demographics + + + | Address | [address] | | | [place] [address] | + + + | Home Phone [...] Team Providers + +------+ + | Care Schedule Planning Manager Name | Role | Phone | [...] [place] | | | | | [address], | [address] | [address] | | | | | Authorized | [address] | Phone: | | | | | For any | [place], [place] | [phone] | | | | | clinically | [address] | Fax: | | | | | necessary | Phone: | [phone] | | | | | Visits for | [phone] | | | | | | 365 days | Fax: | | | | | | AUTH NO: | [phone] | | | | | | [phone] | | | +--------+--------+ + + + + Encounter Details +--------+---------+ + + + | Date | Type | Department | Care Team | Description | +--------+---------+ + + + | 09/01/ | Office | [place] [facility] | Horacio Silvestre, | Type 2 diabetes | | 2019 | Visit | [facility] | DO [address] | mellitus with | | | | [facility] | [place], [place] | diabetic | | | | [address] [facility], | [address] | polyneuropathy, with | | | | [place] [address] | [phone] | long-term current | | | | [phone] | | use of insulin (HCC) | | | | | | (Primary Dx); | | | | | | Atherosclerosis of | | | | | | [place] coronary | | | | | | artery of [place] | | | | | | heart without angina | | | | | | pectoris; Benign | | | | | | prostatic | | | | | | hyperplasia with | | | | | | incomplete bladder | | | | | | emptying; senior care | | | | | | current use of | | | | | | aspirin; senior care | | | | | | current [...] Continue current Lantus dosing 2. Atherosclerosis of [place] coronary artery of [place] heart without angina pectoris Continued follow-up with cardiology 3. Benign prostatic hyperplasia with incomplete bladder emptying - finasteride (PROPECIA) 1 MG tablet; Take 1 tablet by mouth Daily. Dispense: 30 tablet; R efill: 2 4. terminal carman current use of aspirin Stable 5. terminal carman current use of opiate analgesic Stable 6. [...] CATARACT REMOVAL; Surgeon: Tay Kern MD; Location: [facility] MOHS SURGERY [...] [place] | | | | | | [address] | | | | | | [phone] | | | | | | | | +--------+---------+ + + + | 02/26/ | Office | Urology | Lillie Fowler | | | 2018 | Visit | | [address] | | | | | | [address] | | | | | | [place] | | | | | | [address] | | | | | | [phone] | | | | | | | | +--------+---------+ + + + | 03/16/ | Office | Neurology | Theresa, | | | 2018 | Visit | | [address] | | | | | | [address] [place], | | | | | | [place] [address] | | | | | | [phone] | | | | | | | | +--------+---------+ + + + | 04/12/ | Office | Primary Care | Massimo Ramos | | | 2019 | Visit | | MD Fer [address] | | | | | | [place] | | | | | | [address] | | | | | | | | +--------+---------+ + + + | 10/03/ | Office | Neurology | Fabián Carias MD | | | 2019 | Visit | | [address] | | | | | | [place] | | | | | | [address] | | | | | | | [...] | | | care | | | Advanced Developer-C | | | | | | [...] | | | care | | | Advanced Developer-C | | | | | | [...] | | | care | | | Advanced Developer-C | | | | | | [...] | | | care | | | Advanced Developer-C | | | | | | [...] Primary | + + | Atherosclerosis of [place] coronary artery of [place] heart without angina pectoris | + + | Benign prostatic hyperplasia with incomplete bladder emptying | + + | senior care current use of aspirin Encounter for long-term (current) use of aspirin | + + | terminal carman current use 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
--- OUTSIDE RECORDS SUMMARY | ~2019-02-17 | XMS | Encounter Summary ---
Demographics + + + | Address | [address] | | | [place] [address] | + + + | Home Phone [...] Team Providers + +------+ + | Care Area Loss Prevention Manager Name | Role | Phone | [...] | [address] [place], [place] | [place] [address] | | | | | [address] | [phone] | | | | | [phone] | | | +--------+ + + + [...] [place] | | | | | | [address] | | | | | | [phone] | | | | | | | | +--------+---------+ + + + | 02/26/ | Office | Urology | Lillie Fowler | | | 2018 | Visit | | [address] | | | | | | [address] | | | | | | [place] | | | | | | [address] | | | | | | [phone] | | | | | | | | +--------+---------+ + + + | 03/16/ | Office | Neurology | Theresa, | | | 2018 | Visit | | [address] | | | | | [address] [place], | | | | | | [place] [address] | | | | | | [phone] | | | | | | | | +--------+---------+ + + + | 04/12/ | Office | Primary Care | Massimo Ramos | | | 2019 | Visit | | MD Fer [address] | | | | | | [place] | | | | | | [address] | | | | | | | | +--------+---------+ + + + | 10/03/ | Office | Neurology | Fabián Carias MD | | | 2019 | Visit | | [address] | | | | | | [place] | | | | | | [address] | | | | | | | [...] | | care | | | Swatch Clerk-C | | | | | | [...] | | care | | | Swatch Clerk-C | | | | | | [...] | | care | | | Swatch Clerk-C | | | | | | [...] | | care | | | Swatch Clerk-C | | | | | | [...]
--- OUTSIDE RECORDS SUMMARY | ~2019-02-17 | XMS | Encounter Summary ---
Demographics + + + | Address | [address] | | | [place] [address] | + + + | Home Phone [...] Providers + +------+ + | Care Pantry Steward/Stewardess Name | Role | Phone | [...] | | | [facility] | Certified Ethical Hacker-Clinical | | | | | [address] [facility] [place], | | | | | | [place] [address] | | | | | | [phone] | | | +--------+ + + + [...] [place] | | | | | | [address] | | | | | | [phone] | | | | | | | | +--------+---------+ + + + | 02/26/ | Office | Urology | Lillie Fowler | | | 2018 | Visit | | [address] | | | | | | [address] | | | | | | [place], [place] | | | | | | [address] | | | | | | [phone] | | | | | | | | +--------+---------+ + + + | 03/16/ | Office | Neurology | Theresa, | | | 2018 | Visit | | [address] | | | | | | [address] [place], | | | | | | [place] [address] | | | | | | [phone] | | | | | | | | +--------+---------+ + + + | 04/12/ | Office | Primary Care | Massimo Ramos | | | 2019 | Visit | | MD [address] | | | | | | [place] | | | | | | [address] | | | | | | | | +--------+---------+ + + + | 10/03/ | Office | Neurology | Fabián Carias MD | | | 2019 | Visit | | [address] | | | | | | [place] | | | | | | [address] | | | | | | | [...] | | care | | | Certified Ethical Hacker-C | | | | | | | [...] | | care | | | Certified Ethical Hacker-C | | | | | | | [...] | | care | | | Certified Ethical Hacker-C | | | | | | | [...] | | care | | | Certified Ethical Hacker-C | | | | | | | [...]
--- OUTSIDE RECORDS SUMMARY | ~2019-02-17 | XMS | Encounter Summary ---
Demographics + + + | Address | [address] | | | [place] [address] | + + + | Home Phone [...] Providers + +------+ + | Care Grain Unloader Machine Name | Role | Phone | [...] | Visit | [facility] | Jan, [address]EWELRY [address] | (Primary Dx); | | | | [facility] [address] | [address] | Cellulitis of right | | | | [address] [place], | [place] [address] | foot | | | | [place] [address] | [phone] | | | | | [phone] | | | +--------+---------+ + + + [...] encounter Patient Instructions Patient Instructions Jan Reilly, JEWELRY ENAMELER - 11/20/2017 8:22 AM PDT Cellulitis Cellulitis [...] 2 days on antibiotics Date Last Reviewed: 12/07/201519999529-6987 [employer]. [address] [place] [address]. All righ ts reserved. This information is [...] made to ensure accuracy. However, inadvertent computerized sheet metal duct installer helper errors may be pre sent documented in [...] [place] | | | | | | [address] | | | | | | [phone] | | | | | | | | +--------+---------+ + + + | 02/26/ | Office | Urology | Lillie Fowler | | | 2018 | Visit | | [address] | | | | | | [address] | | | | | | [place] | | | | | | [address] | | | | | | [phone] | | | | | | | | +--------+---------+ + + + | 03/16/ | Office | Neurology | Theresa, | | | 2018 | Visit | | [address] | | | | | | [address] [place], | | | | | | [place] [address] | | | | | | [phone] | | | | | | | | +--------+---------+ + + + | 04/12/ | Office | Primary Care | Massimo Ramos | | | 2019 | Visit | | MD Fer [address] | | | | | | [address] [place], [place] | | | | | | [address] | | | | | | | | +--------+---------+ + + + | 10/03/ | Office | Neurology | Fabián Carias MD | | | 2019 | Visit | | [address] | | | | | | [place] | | | | | | [address] | | | | | | | [...] | | | care | | | Anime Designer-C | | | | | | [...] | | | care | | | Anime Designer-C | | | | | | [...] | | | care | | | Anime Designer-C | | | | | | [...] | | | care | | | Anime Designer-C | | | | | | [...]
--- OUTSIDE RECORDS SUMMARY | ~2019-02-17 | XMS | Encounter Summary ---
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, with | | | | | | long-term current | | | | | | use of insulin | | | | | | ([facility]); Numbness | +--------+ + + + + [...] [place] | | | | | | [address] | | | | | | [phone] | | | | | | | | +--------+---------+ + + + | 02/26/ | Office | Urology | Lillie Fowler | | | 2018 | Visit | | [address] | | | | | | [address] | | | | | | [place], [place] | | | | | | [address] | | | | | | [phone] | | | | | | | | +--------+---------+ + + + | 03/16/ | Office | Neurology | Theresa, | | | 2018 | Visit | | [address] | | | | | | [address] [place], | | | | | | [place] [address] | | | | | | [phone] | | | | | | | | +--------+---------+ + + + | 04/12/ | Office | Primary Care | Massimo Ramos | | | 2019 | Visit | | MD Fer [address] | | | | | | [place] | | | | | | [address] | | | | | | | | +--------+---------+ + + + | 10/03/ | Office | Neurology | Fabián Carias MD | | | 2019 | Visit | | [address] | | | | | | [place] | | | | | | [address] | | | | | | | [...] | | | care | | | Pitch Worker-C | | | | | | [...] | | | care | | | Pitch Worker-C | | | | | | [...] | | | care | | | Pitch Worker-C | | | | | | [...] | | | care | | | Pitch Worker-C | | | | | | [...]
--- OUTSIDE RECORDS SUMMARY | ~2019-02-17 | XMS | Encounter Summary ---
Demographics + + + | Address | [address] | | | [place] [address] | + + + | Home Phone [...] Team Providers + +------+ + | Care Dynamite Packing Machine Feeder Name | Role | Phone [...] [address] | | | | | [address] | [address] | | | | | [place], [place] | [place] [address] | | | | | [address] | [phone] | | | | | [phone] | | | +--------+ + + + [...] [place] | | | | | | [address] | | | | | | [phone] | | | | | | | | +--------+---------+ + + + | 02/26/ | Office | Urology | Lillie Fowler | | | 2018 | Visit | | [address] | | | | | | [address] | | | | | | [place], [place] | | | | | | [address] | | | | | | [phone] | | | | | | | | +--------+---------+ + + + | 03/16/ | Office | Neurology | Theresa, | | | 2018 | Visit | | [address] | | | | | | [address] [place], | | | | | | [place] [address] | | | | | | [phone] | | | | | | | | +--------+---------+ + + + | 04/12/ | Office | Primary Care | Massimo Ramos | | | 2019 | Visit | | MD Fer [address] | | | | | | [place] | | | | | | [address] | | | | | | | | +--------+---------+ + + + | 10/03/ | Office | Neurology | Fabián Carias MD | | | 2019 | Visit | | [address] | | | | | | [place] | | | | | | [address] | | | | | | | [...] | | | care | | | Drywall Boardhanger-C | | | | | | | [...] | | | care | | | Drywall Boardhanger-C | | | | | | | [...] | | | care | | | Drywall Boardhanger-C | | | | | | | [...] | | | care | | | Drywall Boardhanger-C | | | | | | | linical | + +--------+ +---+-----+ + + + | Note: Pt will | | check CBG's daily x1 | | Pt will take Lantis as | | prescribed | + + documented as of this encounter Visit Diagnoses Not on filedocumented in this encounter"
--- OUTSIDE RECORDS SUMMARY | ~2019-02-17 | XMS | Encounter Summary ---
Demographics + + + | Address | [address] | | | [place] [address] | + + + | Home Phone [...] + +------+ + | Care Director Of Premium Seat Sales Name | Role | Phone | + +------+ + | Horacio Silvestre DO | PCP | | + +------+ + Encounter Details +--------+ + + + + | Date | Type | Department | Care Team | Description | +--------+ + + + + | 05/19/ | Documentati | [facility] [facility] | Fabián Carias MD | | | 2019 | on | [facility] | [address] | | | | | [facility] [address] | [place], [place] | | | | | [address] [place], | [address] | | | | | [place] [address] | | | | | | [phone] | | | +--------+ + + + [...] [place] | | | | | | [address] | | | | | | [phone] | | | | | | | | +--------+---------+ + + + | 02/26/ | Office | Urology | Lillie Fowler | | | 2018 | Visit | | [address] | | | | | | [address] | | | | | | [place], [place] | | | | | | [address] | | | | | | [phone] | | | | | | | | +--------+---------+ + + + | 03/16/ | Office | Neurology | Theresa, | | | 2018 | Visit | | [address] | | | | | | [address] [place], | | | | | | [place] [address] | | | | | | [phone] | | | | | | | | +--------+---------+ + + + | 04/12/ | Office | Primary Care | Massimo Ramos | | | 2019 | Visit | | MD Fer [address] | | | | | | [address] [place], [place] | | | | | | [address] | | | | | | | | +--------+---------+ + + + | 10/03/ | Office | Neurology | Fabián Carias MD | | | 2019 | Visit | | [address] | | | | | | [place] | | | | | | [address] | | | | | | | [...] | | | care | | | Income Tax Advisor-C | | | | | | [...] | | | care | | | Income Tax Advisor-C | | | | | | [...] | | | care | | | Income Tax Advisor-C | | | | | | [...] | | | care | | | Income Tax Advisor-C | | | | | | [...]
--- OUTSIDE RECORDS SUMMARY | ~2019-02-17 | XMS | Encounter Summary ---
Demographics + + + | Address | [address] | | | [place] [address] | + + + | Home Phone [...] Team Providers + +------+ + | Care Flight Deck Officer Name | Role | Phone | [...] | | [place], [place] | [place] [address] | Hyperglycemia | | 2019 | | [address] | [phone] | | | | | [phone] | | | | | | | Kim Mary, | | | | | | MD [address] | | | | | | [place] [address] | | | | | | [phone] | | | | | | | | | | | | Esteban Calvillo, | | | | | | MD [address] | | | | | | [place] [address] | | | | | | [phone] | | | | | | | | | | | | Faizan Wesley, | | | | | | MD [address] | | | | | | [place] [address] | | | | | | [phone] | | | | | | | [...] nonseasonal allergic rhinitis due to pollen 03/07/2017 prison current use of aspirin 03/07/2017 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, 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 See H&P. In the emergency room the patient was noted to be hyperglycemic with m ild acute kidney injury. Admitting physician noted that the patient had been noncompliant recently with his insulin. Infectious workup was negative. [facility] and restarted on his long-acting insulin [...] high density subpleural nodular foci are present barge master iorly in the lower lobes, and involve [...] Follow-Up Plans: Horacio Silvestre, [address] [place] [address] In 1 week review glucose numbers and adjust as needed Fabián Carias MD [address] [facility] , [place] [address] dementia work-up Electronically signed by: Faizan Wesley 08/25/2018 9:47 CC [facility] Time spent discharging this patient: <30 [...] to you, start slow and steady. Begin [id number] of activity each day. Then work up [...] provider to learn more. Date Last Reviewed: 09/06/201519997890-[address] [employer] [place] [address]. All righ ts reserved. This information is [...] extreme tiredness, and crying. Date Last Reviewed: 10/06/201519992817-4643 [employer]. [address] [place] [address], [place] [address]. All righ ts reserved. This information is [...] resources below can help you learn more: [place] Diabetes Sieszqzdpdw563-831-8387jot.diabetes.org Lighthouse Intqbkhptbjtz985-457-5687tkl.lighthouse.org National Eye Omfuybwrz085-456-4569 www.nei.nih.gov Hormone Health Yjuoxso646-053-1343 www.hormone.org Date Last Reviewed: 08/06/201519997855-3711 [employer]. [address] [place] [address], [place] [address]. All righ ts reserved. This information is [...] signed by: Esteban Calvillo 08/24/2018 8:57 CC [facility] Portions of this chart may have [...] fairly reliable historian -medication list faxed from [facility] Major discrepancies noted: Patient also takes HCTZ 25mg once qam, levothyroxine 75mcg qam, and losartan 50mg qam. Patient does not take Miralax, fluticasone, nor does he use humalog. Patient doses insulin glargine at 35units qam. Patient has no history of pneumonia vaccine, but is interested in receiving if eligible. Henok rogers should receive PCV13 per protocol. Patient prefers to use [facility] here in [place] but [facility] [place] Please see [facility] med list for updated medication list. Electronically [...] [place] | | | | | | [address] | | | | | | [phone] | | | | | | | | +--------+---------+ + + + | 02/26/ | Office | Urology | Lillie Fowler | | | 2018 | Visit | | LILLIE Lopez [address] | | | | | | [address] | | | | | | [place] | | | | | | [address] | | | | | | [phone] | | | | | | | | +--------+---------+ + + + | 03/16/ | Office | Neurology | Theresa, | | | 2018 | Visit | | SHONDA M[address]inney [address] | | | | | [address] [place], | | | | | | [place] [address] | | | | | | [phone] | | | | | | | | +--------+---------+ + + + | 04/12/ | Office | Primary Care | Massimo Ramos | | | 2019 | Visit | | MD Fer [address] | | | | | | [place] | | | | | | [address] | | | | | | | | +--------+---------+ + + + | 10/03/ | Office | Neurology | Fabián Carias MD | | | 2019 | Visit | | [address] | | | | | | [place] | | | | | | [address] | | | | | | | [...] | | | care | | | Rough Planer Tender-C | | | | | | [...] | | | care | | | Rough Planer Tender-C | | | | | | [...] | | | care | | | Rough Planer Tender-C | | | | | | [...] | | | care | | | Rough Planer Tender-C | | | | | | [...] J?MRN: | | | | | | [id number] | | | [id number] | | | riteri | | | [...] | | | [place] | | | Lock Master | | | al | | | [...] | | | [place] | | | Lock Master | | | al | | | [...] | | | [place] | | | Lock Master | | | al | | | [...] | | | [place] | | | Lock Master | | | al | | | [...] | | | [id number] | | | [id number] | | | [id number] | | | [...] + + | [place] [facility] | [address] | [place] [address] | [phone] | | [facility]ITAL [facility] | | | [...] + + | [place] [facility] | [address] | [place] [address] | [phone] | | HOSPITAL [facility] | | | [...] + + | [place] [facility] | [address] | [place] [address] | [phone] | | HOSPITAL [facility] | | | [...] + + | [place] [facility] | [address] | [place] [address] | [phone] | | HOSPITAL [facility] | | | [...] + + | [place] [facility] | [address] | [place] [address] | [phone] | | HOSPITAL [facility] | | | [...] + + | [place] [facility] | [address] | [place] [address] | [phone] | | HOSPITAL [facility] | | | [...] + + | [place] [facility] | [address] | [place] [address] | [phone] | | HOSPITAL [facility] | | | [...] + + | [place] [facility] | [address] | [place] [address] | [phone] | | HOSPITAL [facility] | | | [...] + + | [place] [facility] | [address] | [place] [address] | [phone] | | HOSPITAL [facility] | | | [...] + + | [place] [facility] | [address] | [place] [address] | [phone] | | HOSPITAL [facility] | | | [...] + + | [place] [facility] | [address] | [place] [address] | [phone] | | HOSPITAL [facility] | | | [...] + + | [place] [facility] | [address] | [place] [address] | [phone] | | HOSPITAL [facility] | | | [...] + + | [place] [facility] | [address] | [place] [address] | [phone] | | HOSPITAL [facility] | | | [...] - 1.030 | [place] | | | [place] | | | [facility] | | | [...] + + | [place] [facility] | [address] | [place] [address] | [phone] | | HOSPITAL [facility] | | | | + + + + + ECG 12 lead (08/23/2018 8:43 PM PDT) + + | Specimen | + + | | + + + + + | Narrative | Performed At | + + + | Heart Rate: 83 | [facility] | | bpmQRS Interval: 88 msQT Interval: 344 msQTC Interval: 405 msP [place]: | TRACEMASTER | | 3 degQRS [place]: -25 degT Wave [place]: 7 degP-R Interval: 180 msec- | | | OTHERWISE NORMAL ECG -SINUS RHYTHM [Now Present]BORDERLINE LEFT AXIS | | | DEVIATION [Remains]EARLY PRECORDIAL R/S TRANSITION [Now | | | Present]SIGNIFICANT RHYTHM CHANGES[Now Absent] SINUS TACHYCARDIA | | |T Wave [place]: 7 deg | | |P-R Interval: 180 [...] + + | [place] [facility] | [address] | [place] [address] | [phone] | | HOSPITAL [facility] | | | [...] + + | [place] [facility] | [address] | [place] [address] | [phone] | | HOSPITAL [facility] | | | [...] + + | [place] [facility] | [address] | [place] [address] | [phone] | | HOSPITAL LAB[facility]ORY | | | [...] | | HOSPITAL | | | | mL/min/1.86c8Tsvm than | | LABORATORY | | | [...] + + | [place] [facility] | [address] | [place] [address] | [phone] | | HOSPITAL [facility] | | | [...] + + | [place] [facility] | [address] | [place] [address] | [phone] | | HOSPITAL [facility]ORY | | | [...] | | | | | | | 0531-9710 Use NIGHT DOSE for | | | | | | | doses scheduled: HS, 3AM, | | | | | | | Nighttime 0763-4349 If the BG is | | | [...] | | | Left | | Intramuscular, OUTSIDE INSTALLATION MACHINIST, Starting | | PM PDT | | [...]
--- OUTSIDE RECORDS SUMMARY | ~2019-02-17 | XMS | Encounter Summary ---
Demographics + + + | Address | [address] | | | [place] [address] | + + + | Home Phone [...] Team Providers + +------+ + | Care Weed Control Inspector Name | Role | Phone | [...] [facility] | DO [address] [place] | | | | | [facility] | [place], [place] | | | | | [address] [place], | [address] | | | | | [place] [address] | [phone] | | | | | [phone] | | | +--------+ + + + [...] [place] | | | | | | [address] | | | | | | [phone] | | | | | | | | +--------+---------+ + + + | 02/26/ | Office | Urology | Lillie Fowler | | | 2018 | Visit | | LILLIE Lopez [address] | | | | | | [address] | | | | | | [place] | | | | | | [address] | | | | | | [phone] | | | | | | | | +--------+---------+ + + + | 03/16/ | Office | Neurology | Theresa, | | | 2018 | Visit | | [address]ONDA M[address] | | | | | [address] [place], | | | | | | [place] [address] | | | | | | [phone] | | | | | | | | +--------+---------+ + + + | 04/12/ | Office | Primary Care | Massimo Ramos | | | 2019 | Visit | | MD Fer [address] | | | | | | [place] | | | | | | [address] | | | | | | | | +--------+---------+ + + + | 10/03/ | Office | Neurology | Fabián Carias MD | | | 2019 | Visit | | [address] | | | | | | [place] | | | | | | [address] | | | | | | | [...] | n of | | | Charlien M, | | dehydration | | complex | | | Case | | | | care | | | Restaurant Bartender-C | | | | | | | [...] | | care | | | Restaurant Bartender-C | | | | | | | [...] | | care | | | Restaurant Bartender-C | | | | | | | [...] | | care | | | Restaurant Bartender-C | | | | | | | linical | + +--------+ +---+-----+ + + + | Note: Pt will | | check CBG's daily x1 | | Pt will take Lantis as | | prescribed | + + documented as of this encounter Visit Diagnoses Not on filedocumented in this encounter"
--- OUTSIDE RECORDS SUMMARY | ~2019-02-17 | XMS | Encounter Summary ---
Demographics + + + | Address | [address] | | | [place] [address] | + + + | Home Phone [...] Providers + +------+ + | Care Otolaryngology Nurse Name | Role | Phone | [...] diabetes | MD Fer | [address] | | | | | mellitus | [address] | [address] | | | | | with other | [address] | [place] | | | | | specified | [place] | [address] | | | | | complication | [address] | Phone: | | | | | , without | Phone: | [phone] | | | | | long-term | [phone] | | | | | | current use | Fax: | | | | | | of insulin | [phone] | | | | | | ([facility]) | | | + + + + [...] | Diagnoses | Richard | Jumana Wgr [facility] | | Review | Services | [...] [place] | | | | | | [address] | [address] | | | | | | Phone: | Phone: | | | | | | [phone] | [phone] | | | | | | Fax: | Fax: | | | | | | [phone] | [phone] | + + + + + + [...] diabetes | | 2019 | Visit | [facility] | MD Fer [address] | mellitus with other | | | | MEDICAL [facility] [address] | [address] [place], [place] | specified | | | | [address] [place], | [address] | complication, | | | | [place] [address] | | without long-term | | | | [phone] | | current use of | | [...] of melanoma - refer to Derm R yazidi lesion, doubt TA, check ESR Low TSH [...] fasting today He c/o painful lesion R yazidi, occurs with rubbing, x 6 mo; neg pain today Review of Systems Having memory problems Denies cp, sob, n/v/d, fever, chills, sweating, depression, anxiety, bleeding, dizziness, s yncope, palpitations, edema + easy bruising Thinks he's off the plavix but did not bring bottles, had planned to bring them Hx of melanoma Has had "singleton" lesion, R yazidi x 7 mo Lives with grandson, has [...] - Wm, dry; + hyperpigmented macule, R yazidi, neg tenderness HEENT - AYLIN, EOMI, sclera anicteric, oropharynx non erythematous Neck - Supple, neg JVD Cor - RRR, nl S1 and S2, neg m Lung - Clear Abd - Soft, obese, non tender, non distended Neg cva tenderness M/S - Neg R yazidi scalp tenderness Neg spinal tenderness Ext - [...] [place] | | | | | | [address] | | | | | | [phone] | | | | | | | | +--------+---------+ + + + | 02/26/ | Office | Urology | Lillie Fowler | | | 2018 | Visit | | LILLIE Lopez [address] | | | | | | [address] | | | | | | [place], [place] | | | | | | [address] | | | | | | [phone] | | | | | | | | +--------+---------+ + + + | 03/16/ | Office | Neurology | Theresa, | | | 2018 | Visit | | [address] | | | | | [address] [place], | | | | | | [place] [address] | | | | | | [phone] | | | | | | | | +--------+---------+ + + + | 04/12/ | Office | Primary Care | Massimo Ramos | | | 2019 | Visit | | MD Fer [address] | | | | | | [place] | | | | | | [address] | | | | | | | | +--------+---------+ + + + | 10/03/ | Office | Neurology | Fabián Carias MD | | | 2019 | Visit | | [address] | | | | | | [place] | | | | | | [address] | | | | | | | [...] | | | care | | | Key Holder-C | | | | | | | [...] | | | care | | | Key Holder-C | | | | | | | [...] | | | care | | | Key Holder-C | | | | | | | [...] | | | care | | | Key Holder-C | | | | | | | [...]
--- OUTSIDE RECORDS SUMMARY | ~2019-02-17 | XMS | Encounter Summary ---
Demographics + + + | Address | [address] | | | [place] [address] | + + + | Home Phone [...] Team Providers + +------+ + | Care Casualty Underwriter Name | Role | Phone | [...] | | | MEDICAL [facility] [address] | [facility], [place] | | | | | [address] [place], | [address] | | | | | [place] [address] | [phone] | | | | | [phone] | | | +--------+ + + + [...] [place] | | | | | | [address] | | | | | | [phone] | | | | | | | | +--------+---------+ + + + | 02/26/ | Office | Urology | Lillie Fowler | | | 2018 | Visit | | LILLIE Lopez [address] | | | | | | [address] | | | | | | [place], [place] | | | | | | [address] | | | | | | [phone] | | | | | | | | +--------+---------+ + + + | 03/16/ | Office | Neurology | Theresa, | | | 2018 | Visit | | [address]DA [address] | | | | | | [address] [place], | | | | | | [place] [address] | | | | | | [phone] | | | | | | | | +--------+---------+ + + + | 04/12/ | Office | Primary Care | Massimo Ramos | | | 2019 | Visit | | MD Fer [address] | | | | | | [place] | | | | | | [address] | | | | | | | | +--------+---------+ + + + | 10/03/ | Office | Neurology | Fabián Carias MD | | | 2019 | Visit | | [address] | | | | | | [place] | | | | | | [address] | | | | | | | [...] | | | care | | | Lab Aide-C | | | | | | [...] | | | care | | | Lab Aide-C | | | | | | [...] | | | care | | | Lab Aide-C | | | | | | [...] | | | care | | | Lab Aide-C | | | | | | | linical | + +--------+ +---+-----+ + + + | Note: Pt will | | check CBG's daily x1 | | Pt will take Lantis as | | prescribed | + + documented as of this encounter Visit Diagnoses Not on filedocumented in this encounter"
--- OUTSIDE RECORDS SUMMARY | ~2019-02-17 | XMS | Encounter Summary ---
Demographics + + + | Address | [address] | | | [place] [address] | + + + | Home Phone [...] Team Providers + +------+ + | Care Physics Instructor Name | Role | Phone | [...] [place] | | | | | [address], | [address] | [address] | | | | | Authorized | [address] | Phone: | | | | | For any | [place], [place] | [phone] | | | | | clinically | [address] | Fax: | | | | | necessary | Phone: | [phone] | | | | | Visits for | [phone] | | | | | | 365 days | Fax: | | | | | | AUTH NO: | [phone] | | | | | | [id number] | | | +--------+--------+ + + + + Encounter Details +--------+---------+ + + + | Date | Type | Department | Care Team | Description | +--------+---------+ + + + | 09/01/ | Office | [place] [facility] | Horacio Silvestre, | Type 2 diabetes | | 2019 | Visit | [facility] | DO [address] [place] | mellitus with | | | | MEDICAL CL[facility] [address] | [place], [place] | diabetic | | | | [address] [place] [facility], | [address] | polyneuropathy, with | | | | [place] [address] | [phone] | long-term current | | | | [phone] | | use of insulin (HCC) | | | | | | (Primary Dx); | | | | | | Atherosclerosis of | | | | | | paiute-shoshone coronary | | | | | | artery of paiute-shoshone | | | | | | heart without angina | | | | | | pectoris; Benign | | | | | | prostatic | | | | | | hyperplasia with | | | | | | incomplete bladder | | | | | | emptying; intermediate | | | | | | current use of | | | | | | aspirin; intermediate | | | | | | [...] Continue current Lantus dosing 2. 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 Benign prostatic hyperplasia with incomplete bladder emptying - finasteride (PROPECIA) 1 MG tablet; Take 1 tablet by mouth Daily. 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 [...] [place] | | | | | | [address] | | | | | | [phone] | | | | | | | | +--------+---------+ + + + | 02/26/ | Office | Urology | Lillie Fowler | | | 2018 | Visit | | LILLIE Lopez [address] | | | | | [address] | | | | | | [place] | | | | | | [address] | | | | | | [phone] | | | | | | | | +--------+---------+ + + + | 03/16/ | Office | Neurology | Theresa, | | | 2018 | Visit | | SHONDA [address] | | | | | | [address] [place], | | | | | | [place] [address] | | | | | | [phone] | | | | | | | | +--------+---------+ + + + | 04/12/ | Office | Primary Care | Massimo Ramos | | | 2019 | Visit | | MD Fer [address] | | | | | | [place] | | | | | | [address] | | | | | | | | +--------+---------+ + + + | 10/03/ | Office | Neurology | Fabián Carias MD | | | 2019 | Visit | | [address] | | | | | | [place] | | | | | | [address] | | | | | | | [...] | | | care | | | Scientific Research Manager-C | | | | | | [...] | | | care | | | Scientific Research Manager-C | | | | | | [...] | | | care | | | Scientific Research Manager-C | | | | | | [...] | | | care | | | Scientific Research Manager-C | | | | | | [...] Primary | + + | 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
--- OUTSIDE RECORDS SUMMARY | ~2019-02-17 | XMS | Encounter Summary ---
Demographics + + + | Address | [address] | | | [place] [address] | + + + | Home Phone [...] Team Providers + +------+ + | Care Counseling Program Leader Name | Role | Phone | [...] MEDICAL [facility] [address] | [facility] [place] | | | | | [address] [place], | [address] | | | | | [place] [address] | [phone] | | | | | [phone] | | | +--------+ + + + [...] [place] | | | | | | [address] | | | | | | [phone] | | | | | | | | +--------+---------+ + + + | 02/26/ | Office | Urology | Lillie Fowler | | | 2018 | Visit | | LILLIE Lopez [address] | | | | | | [address] | | | | | | [place], [place] | | | | | | [address] | | | | | | [phone] | | | | | | | | +--------+---------+ + + + | 03/16/ | Office | Neurology | Theresa, | | | 2018 | Visit | | [address] | | | | | | [address] [place], | | | | | | [place] [address] | | | | | | [phone] | | | | | | | | +--------+---------+ + + + | 04/12/ | Office | Primary Care | Massimo Ramos | | | 2019 | Visit | | MD Fer [address] | | | | | | [place] | | | | | | [address] | | | | | | | | +--------+---------+ + + + | 10/03/ | Office | Neurology | Fabián Carias MD | | | 2019 | Visit | | [address] | | | | | | [place] | | | | | | [address] | | | | | | | [...] | | | care | | | Electro Mechanical Solar Technician-C | | | | | | [...] | n of | | | Charlnie M, | | | | complex | | | Case | | | | care | | | Electro Mechanical Solar Technician-C | | | | | | [...] | | | care | | | Electro Mechanical Solar Technician-C | | | | | | [...] | | | care | | | Electro Mechanical Solar Technician-C | | | | | | [...]
--- OUTSIDE RECORDS SUMMARY | ~2019-02-17 | XMS | Encounter Summary ---
Demographics + + + | Address | [address] | | | [place] [address] | + + + | Home Phone [...] Team Providers + +------+ + | Care Mandrel Cleaner Name | Role | Phone | + [...] | | | | [address] [place] [facility], | [address] | | | | | [place] [address] | [phone] | | | | | [phone] | | | +--------+ + + + [...] [place] | | | | | | [address] | | | | | | [phone] | | | | | | | | +--------+---------+ + + + | 02/26/ | Office | Urology | Lillie Fowler | | | 2018 | Visit | | LILLIE Lopez [address] | | | | | | [address] | | | | | | [place], [place] | | | | | | [address] | | | | | | [phone] | | | | | | | | +--------+---------+ + + + | 03/16/ | Office | Neurology | Theresa, | | | 2018 | Visit | | [address] | | | | | | [address] [place], | | | | | | [place] [address] | | | | | | [phone] | | | | | | | | +--------+---------+ + + + | 04/12/ | Office | Primary Care | Massimo Ramos | | | 2019 | Visit | | MD Fer [address] | | | | | | [address] [place], [place] | | | | | | [address] | | | | | | | | +--------+---------+ + + + | 10/03/ | Office | Neurology | Fabián Carias MD | | | 2019 | Visit | | [address] | | | | | | [place], [place] | | | | | | [address] | | | | | | | [...] | | care | | | Business Unit Leader-C | | | | | | [...] | | care | | | Business Unit Leader-C | | | | | | [...] | | care | | | Business Unit Leader-C | | | | | | [...] | | care | | | Business Unit Leader-C | | | | | | [...]
--- OUTSIDE RECORDS SUMMARY | ~2019-02-17 | XMS | Encounter Summary ---
Demographics + + + | Address | [address] | | | [place] [address] | + + + | Home Phone [...] Providers + +------+ + | Care Sign Shop Supervisor Name | Role | Phone | [...] | DO [address] [place] | mail ) | | | | MEDICAL CL[facility] [address] | [facility], [place] | | | | | [facility], | [address] | | | | | [place] [address] | [phone] | | | | | [phone] | | | +--------+ + + + [...] 01/30/2017 3:18 PM PDTOXYCODONE 5MG SENT To: [facility] ADDRESS: [address] [place] [address] TRACKING No: [id number] [...] [place] | | | | | | [address] | | | | | | [phone] | | | | | | | | +--------+---------+ + + + | 02/26/ | Office | Urology | Lillie Fowler | | | 2018 | Visit | | LILLIE Lopez [address] | | | | | | [address] | | | | | | [place], [place] | | | | | | [address] | | | | | | [phone] | | | | | | | | +--------+---------+ + + + | 03/16/ | Office | Neurology | Theresa, | | | 2018 | Visit | | [address]ckinney [address] [place], | | | | | | [place] [address] | | | | | | [phone] | | | | | | | | +--------+---------+ + + + | 04/12/ | Office | Primary Care | Massimo Ramos Pedro Luis | | | 2019 | Visit | | MD Fer [address] | | | | | | [address] [place] | | | | | | [address] | | | | | | | | +--------+---------+ + + + | 10/03/ | Office | Neurology | Fabián Carias MD | | | 2019 | Visit | | [address] | | | | | | [place] | | | | | | [address] | | | | | | | [...] care | | | [employer] [facility] | | | | | | [...] care | | | [facility] [employer] [facility] | | | | | | [...] care | | | [facility] [employer] [facility] | | | | | | [...] care | | | [facility] [employer] [facility] | | | | | | | linical | + +--------+ +---+-----+ + + + | Note: Pt will | | check CBG's daily x1 | | Pt will take [place] as | | prescribed | + + documented as of this encounter Visit Diagnoses Not on filedocumented in this encounter"
--- OUTSIDE RECORDS SUMMARY | ~2019-02-17 | XMS | Encounter Summary ---
Demographics + + + | Address | [address] | | | [place] [address] | + + + | Home Phone [...] Providers + +------+ + | Care Top Trimmer Name | Role | Phone | [...] | | | | other organs | [address] | [address] | | | | | and systems | Phone: | Phone: | | | | | Procedures | [phone] | [phone] | | | | | OV | Fax: | Fax: | | | | | | [phone] | [phone] | + + + + + + [...] | (Primary Dx); | | | | [address] | [address] | Erectile | | | | [phone] | [phone] | dysfunction, | | | | | [...] tablet by mouth every morning. nystatin (MYCOSTATIN) 295831 UNIT/GM cream Apply topically 2 times daily. [...] 5 tabs safely. Candidiasis - nystatin (MYCOSTATIN) 087861 UNIT/GM cream; Apply topically 2 times daily. [...] ultrasound. Lillie Fowler PA-C Lara Diaz [facility] OVERNIGHT BABYSITTER - 01/27/2019 10:30 AM PDT12/08/2018 PSA documented [...] [place] | | | | | | [address] | | | | | | [phone] | | | | | | | | +--------+---------+ + + + | 02/26/ | Office | Urology | Lillie Fowler | | | 2018 | Visit | | [address] | | | | | | [address] | | | | | | [place], [place] | | | | | | [address] | | | | | | [phone] | | | | | | | | +--------+---------+ + + + | 03/16/ | Office | Neurology | Theresa, | | | 2018 | Visit | | [address] | | | | | | [address] [place], | | | | | | [place] [address] | | | | | | [phone] | | | | | | | | +--------+---------+ + + + | 04/12/ | Office | Primary Care | Massimo Ramos | | | 2019 | Visit | | MD Fer [address] | | | | | | [place] | | | | | | [address] | | | | | | | | +--------+---------+ + + + | 10/03/ | Office | Neurology | Fabián Carias MD | | | 2019 | Visit | | [address] | | | | | | [place] | | | | | | [address] | | | | | | | [...] | | | care | | | Java Software-C | | | | | | | [...] | | | care | | | Java Software-C | | | | | | | [...] | | | care | | | Java Software-C | | | | | | | [...] | | | care | | | Java Software-C | | | | | | | [...]
--- OUTSIDE RECORDS SUMMARY | ~2019-02-17 | XMS | Encounter Summary ---
Demographics + + + | Address | [address] | | | [place] [address] | + + + | Home Phone [...] Team Providers + +------+ + | Care Gum 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 Name | Role | Phone [...] | | | | | Mediastinal | [place] | [address] | | | | | | MD Satya | [place], | | | | | lymphadenopa | [address] | [place] [address] | | | | | thy | DR [address] | Phone: | | | | | Procedures | [place], [place] | [phone] | | | | | CT Chest | [address] | Fax: | | | | | Abdomen | Phone: | [phone] | | | | | Pelvis w | [phone] | | | | | | Contrast | Fax: | | | | | | | [phone] | | +--------+--------+ + + + + [...] [place] | | | | | | [address] | [address] | | | | | | Phone: | Phone: | | | | | | [phone] | [phone] | | | | | | Fax: | Fax: | | | | | | [phone] | [phone] | + + + + + + + Encounter Details +--------+ + + + + | Date | Type | Department | Care Team | Description | +--------+ + + + + | 10/27/ | Hospital | [facility] | [place], [place] | Mediastinal | | 2019 | Encounter | HOSPITAL HEMATOLOGY | MD [address] | lymphadenopathy | | | | ONCOLOGY [address] | [address] | (Primary Dx) | | | | DR [place], [place] | [place], [place] | | | | | [address] | [address] | | | | | [phone] | [phone] | | | | | | | [...] Name/Age/: Geraldo Mcfadden 78 y.o. 1940 CSN: [id number] Date of service: 10/27/2018 Provider: Arnaud Franklin [...] direct way would be referral to a dentofacial orthopedics dentist for bronchoscopic biopsy of a subcarinal node. A drawback to this would be the need to elizabeth (likely [facility] or [facility] with an overnight stay) and undergoing [...] a standard meal and consumed by the [facility] ie. Routine imaging over 4 hours [...] [place] | | | | | | [address] | | | | | | [phone] | | | | | | | | +--------+---------+ + + + | 02/26/ | Office | Urology | Lillie Fowler | | | 2018 | Visit | | [address] | | | | | | [address] | | | | | | [place] | | | | | | [address] | | | | | | [phone] | | | | | | | | +--------+---------+ + + + | 03/16/ | Office | Neurology | Theresa, | | | 2018 | Visit | | [address] | | | | | | [address] [place], | | | | | | [place] [address] | | | | | | [phone] | | | | | | | | +--------+---------+ + + + | 04/12/ | Office | Primary Care | Massimo Ramos | | | 2019 | Visit | | MD Fer [address] | | | | | | [place] | | | | | | [address] | | | | | | | | +--------+---------+ + + + | 10/03/ | Office | Neurology | Fabián Carias MD | | | 2019 | Visit | | [address] | | | | | | [place] | | | | | | [address] | | | | | | | [...] | | | care | | | Ordnance Artificer-C | | | | | | | [...] | | | care | | | Ordnance Artificer-C | | | | | | | [...] | | | care | | | Ordnance Artificer-C | | | | | | | [...] | | | care | | | Ordnance Artificer-C | | | | | | | [...] | mL/min/1.73m2 | [facility] | | | [facility] | RATE,ESTIMATED | | HOSP[facility] | | | | mL/min/1.39v1Stbb than | | REGIONAL | | | [...] + + | [facility] | [address] | [place] [address] | [phone] | | [facility] | | | | [...] 16.5 | 0.0 - 17.0 % | [facility] | | | | | [...] + + | [facility] | [address] | [place] [address] | [phone] | | HOS[facility]ITAL [facility] | | | [...]
--- OUTSIDE RECORDS SUMMARY | ~2019-02-17 | XMS | Encounter Summary ---
Demographics + + + | Address | [address] | | | [place] [address] | + + + | Home Phone [...] Team Providers + +------+ + | Care Patcher Name | Role | Phone | [...] | | | | other organs | [address] | [place], [place] | | | | | and systems | Phone: | [address] | | | | | | [phone] | Phone: | | | | | | Fax: | [phone] | | | | | | [phone] | Fax: | | | | | | | [phone] | +--------+ + + + + + [...] Services | | Abnormal | Renato L, TEA LEAF READER | Urology [address] | | | Required | | results of | [address] | [address] | | | | | function | DR [address] | Jack [address] | | | | | studies of | [place], [place] | [place] | | | | | other organs | [address] | [address] | | | | | and systems | Phone: | Phone: | | | | | Procedures | [phone] | [phone] | | | | | OV | Fax: | Fax: | | | | | | [phone] | [phone] | + + + + + + [...] health | | 2019 | Visit | [facility] | TEA LEAF READER [address] | care (Primary Dx); | | | | MEDICAL [facility] [address] | [place] [address] | Opioid use | | | | [address] [place], | [phone] | | | | | [place] [address] | | | | | | [phone] | | | +--------+---------+ + + + [...] [place] | | | | | | [address] | | | | | | [phone] | | | | | | | | +--------+---------+ + + + | 02/26/ | Office | Urology | Lillie Fowler | | | 2018 | Visit | | [address] | | | | | | [address] | | | | | | [place], [place] | | | | | | [address] | | | | | | [phone] | | | | | | | | +--------+---------+ + + + | 03/16/ | Office | Neurology | Theresa, | | | 2018 | Visit | | [address] | | | | | | [address] [place], | | | | | | [place] [address] | | | | | | [phone] | | | | | | | | +--------+---------+ + + + | 04/12/ | Office | Primary Care | Richard Massimo Pedro Luis | | | 2019 | Visit | | MD Fer [address] | | | | | | [place] | | | | | | [address] | | | | | | | | +--------+---------+ + + + | 10/03/ | Office | Neurology | Fabián Carias MD | | | 2019 | Visit | | [address] | | | | | | [place] | | | | | | [address] | | | | | | | [...] | | | care | | | Mig Tig Welder-C | | | | | | | [...] | | | care | | | Mig Tig Welder-C | | | | | | | [...] | | | care | | | Mig Tig Welder-C | | | | | | | [...] | | | care | | | Mig Tig Welder-C | | | | | | | [...] + | PSA, TOTAL PERFORMED ON ADVIA VastechAUR XP. TEST RESULT MAY NOT | [facility] | | CORRELATE WITH OTHER INSTRUMENTS. | HOSPITAL | | | LABORATORY | + + + + + + + + | Performing | Address | City/State/Zipcode | Phone Number | | Organization | | | | + + + + + | [facility] | [address] | [place] [address] | [phone] | | HOSPITAL LABORATORY | | | | + + + + + documented in this encounter Visit Diagnoses + + | Diagnosis | + + | Preventative health care - Primary Routine general medical examination at a [facility] | | care facility | + + [...]
--- OUTSIDE RECORDS SUMMARY | ~2019-02-17 | XMS | Encounter Summary ---
Demographics + + + | Address | [address] | | | [place] [address] | + + + | Home Phone [...] Team Providers + +------+ + | Care Deposition Reporter Name | Role | Phone | [...] | | | | 2 diabetes | [address] | [address] | | | | | mellitus | Phone: | [place] | | | | | with | [phone] | [place], [place] | | | | | diabetic | Fax: | [address] | | | | | polyneuropat | [phone] | Phone: | | | | | hy, with | | [phone] | | | | | long-term | | Fax: | | | | | current use | | [phone] | | | | | of insulin [...] 2019 | | HOSPITAL [facility] | [address] [facility] | | | | | MEDICAL CLINIC [address] | [facility], [place] | | | | | [address] [place], | [address] | | | | | [place] [address] | [phone] | | | | | [phone] | | | +--------+ + + + [...] [place] | | | | | | [address] | | | | | | [phone] | | | | | | | | +--------+---------+ + + + | 02/26/ | Office | Urology | Lillie Fowler | | | 2018 | Visit | | [address] | | | | | | [address] | | | | | | [place], [place] | | | | | | [address] | | | | | | [phone] | | | | | | | | +--------+---------+ + + + | 03/16/ | Office | Neurology | Theresa, | | | 2018 | Visit | | [address] | | | | | | [address] [place], | | | | | | [place] [address] | | | | | | [phone] | | | | | | | | +--------+---------+ + + + | 04/12/ | Office | Primary Care | Massimo Ramos | | | 2019 | Visit | | MD Fer [address] | | | | | | [place] | | | | | | [address] | | | | | | | | +--------+---------+ + + + | 10/03/ | Office | Neurology | Fabián Carias MD | | | 2019 | Visit | | [address] | | | | | | [place] | | | | | | [address] | | | | | | | [...] | | care | | | Supervisor Plastering-C | | | | | | | [...] | | care | | | Supervisor Plastering-C | | | | | | | [...] | | care | | | Supervisor Plastering-C | | | | | | | [...] | | care | | | Supervisor Plastering-C | | | | | | | [...]
--- OUTSIDE RECORDS SUMMARY | ~2019-02-17 | XMS | Encounter Summary ---
Demographics + + + | Address | [address] | | | [place] [address] | + + + | Home Phone [...] Team Providers + +------+ + | Care Sack Filler Name | Role | Phone | + +------+ + | Ryan Gutiérrez MD | PCP | | + +------+ + Encounter Details +--------+ + + + + | Date | Type | Department | Care Team | Description | +--------+ + + + + | 01/08/ | Hospital | [facility] | Horacio Silvestre, | | | 2016 | Encounter | [facility] | DO [address] [place] | | | | | MEDICAL CLIN[facility] [address] | [facility], [place] | | | | | [address] [facility], | [address] | | | | | [place] [address] | [phone] | | | | | [phone] | | | +--------+ + + + [...] [place] | | | | | | [address] | | | | | | [phone] | | | | | | | | +--------+---------+ + + + | 02/26/ | Office | Urology | Lillie Fowler | | | 2018 | Visit | | [address] | | | | | | [address] | | | | | | [place] | | | | | | [address] | | | | | | [phone] | | | | | | | | +--------+---------+ + + + | 03/16/ | Office | Neurology | Theresa, | | | 2018 | Visit | | [address] | | | | | | [address] [place], | | | | | | [place] [address] | | | | | | [phone] | | | | | | | | +--------+---------+ + + + | 04/12/ | Office | Primary Care | Massimo Ramos | | | 2019 | Visit | | MD Fer [address] | | | | | | [place] | | | | | | [address] | | | | | | | | +--------+---------+ + + + | 10/03/ | Office | Neurology | Fabián Carias MD | | | 2019 | Visit | | [address] | | | | | | [place] | | | | | | [address] | | | | | | | [...] | | care | | | Core Microarchitect-C | | | | | | | [...] | | care | | | Core Microarchitect-C | | | | | | | [...] | | care | | | Core Microarchitect-C | | | | | | | [...] | | care | | | Core Microarchitect-C | | | | | | | linical | + +--------+ +---+-----+ + + + | Note: Pt will | | check CBG's daily x1 | | Pt will take Lantis as | | prescribed | + + documented as of this encounter Visit Diagnoses Not on filedocumented in this encounter"
--- OUTSIDE RECORDS SUMMARY | ~2019-02-17 | XMS | Encounter Summary ---
Demographics + + + | Address | [address] | | | [place] [address] | + + + | Home Phone [...] + +------+ + | Care Director Of Sales Support Name | Role | Phone | + [...] | Diagnoses | [place] | [facility] | | | | | | [place] | Regional | | | | | Office/outpa | MEDICAL | Primary Care | | | | | tient visit | [address] | [address] [facility] | | | | | est | [address] | [place] | | | | | [address], | [address] | [address] | | | | | Authorized | [address] [place] | Phone: | | | | | For any | MARCELO LANGSTON | [phone] | | | | | clinically | [address] | Fax: | | | | | necessary | Phone: | [phone] | | | | | Visits for | [phone] | | | | | | 365 days | Fax: | | | | | | AUTH NO: | [phone] | | | | | | [phone] | | | +--------+--------+ + + + + Encounter Details +--------+---------+ + + + | Date | Type | Department | Care Team | Description | +--------+---------+ + + + | 10/27/ | Office | [facility] | Horacio Silvestre, | Panlobular emphysema | | 2019 | Visit | [facility] | DO [address] | ([facility]) (Primary Dx); | | | | MEDICAL CLINIC [address] | [place], [place] | Mediastinal | | | | [address] [place], | [address] | lymphadenopathy; | | | | [place] [address] | [phone] | History of bacterial | | | | [phone] | | pneumonia; Acquired | | | [...] [place] | | | | | | [address] | | | | | | [phone] | | | | | | | | +--------+---------+ + + + | 02/26/ | Office | Urology | Lillie Fowler | | | 2018 | Visit | | [address] | | | | | | [address] | | | | | | [place] | | | | | | [address] | | | | | | [phone] | | | | | | | | +--------+---------+ + + + | 03/16/ | Office | Neurology | Theresa, | | | 2018 | Visit | | [address] | | | | | | [address] [place], | | | | | | [place] [address] | | | | | | [phone] | | | | | | | | +--------+---------+ + + + | 04/12/ | Office | Primary Care | Massimo Ramos | | | 2019 | Visit | | MD Fer [address] | | | | | | [place] | | | | | | [address] | | | | | | | | +--------+---------+ + + + | 10/03/ | Office | Neurology | Fabián Carias MD | | | 2019 | Visit | | [address] | | | | | | [place] | | | | | | [address] | | | | | | | [...] | | care | | | Office Asst-C | | | | | | | [...] | | care | | | Office Asst-C | | | | | | | [...] | | care | | | Office Asst-C | | | | | | | [...] | | care | | | Office Asst-C | | | | | | | [...] + + | [facility] | [address] | [place] [address] | [phone] | | [facility] | | | | | [facility] | | | | + [...]
--- OUTSIDE RECORDS SUMMARY | ~2019-02-17 | XMS | Encounter Summary ---
Demographics + + + | Address | [address] | | | [place] [address] | + + + | Home Phone [...] Team Providers + +------+ + | Care Pony Cylinder Press Operator Name | Role | Phone [...] Medication Refill | | 2019 | | [facility] | [address] | | | | | MEDICAL CLINIC [address] | [facility], [place] | | | | | [address] [place], | [address] | | | | | [place] [address] | [phone] | | | | | [phone] | | | +--------+--------+ + + + [...] [place] | | | | | | [address] | | | | | | [phone] | | | | | | | | +--------+---------+ + + + | 02/26/ | Office | Urology | Lillie Fowler | | | 2018 | Visit | | [address] | | | | | | [address] | | | | | | [place], [place] | | | | | | [address] | | | | | | [phone] | | | | | | | | +--------+---------+ + + + | 03/16/ | Office | Neurology | Theresa, | | | 2018 | Visit | | [address] | | | | | | [address] [place], | | | | | | [place] [address] | | | | | | [phone] | | | | | | | | +--------+---------+ + + + | 04/12/ | Office | Primary Care | Massimo Ramos | | | 2019 | Visit | | MD Fer [address] | | | | | | [place] | | | | | | [address] | | | | | | | | +--------+---------+ + + + | 10/03/ | Office | Neurology | Fabián Carias MD | | | 2019 | Visit | | [address] | | | | | | [place] | | | | | | [address] | | | | | | | [...] | | | care | | | Underground Truck Operator-C | | | | | | [...] | | | care | | | Underground Truck Operator-C | | | | | | [...] | | | care | | | Underground Truck Operator-C | | | | | | [...] | | | care | | | Underground Truck Operator-C | | | | | | [...]
--- OUTSIDE RECORDS SUMMARY | ~2019-02-17 | XMS | Encounter Summary ---
Demographics + + + | Address | [address] | | | [place] [address] | + + + | Home Phone [...] Team Providers + +------+ + | Care Fruit Worker Name | Role | Phone | [...] [address] | | | | | [place] [address] | | | | | | [phone] | | | +--------+ + + + [...] [place] | | | | | | [address] | | | | | | [phone] | | | | | | | | +--------+---------+ + + + | 02/26/ | Office | Urology | Lillie Fowler | | | 2018 | Visit | | [address] | | | | | | [address] | | | | | | [place], [place] | | | | | | [address] | | | | | | [phone] | | | | | | | | +--------+---------+ + + + | 03/16/ | Office | Neurology | Theresa, | | | 2018 | Visit | | [address] | | | | | | [address] [place], | | | | | | [place] [address] | | | | | | [phone] | | | | | | | | +--------+---------+ + + + | 04/12/ | Office | Primary Care | Massimo Ramos Pedro Luis | | | 2019 | Visit | | MD Fer [address] | | | | | | [place] | | | | | | [address] | | | | | | | | +--------+---------+ + + + | 10/03/ | Office | Neurology | Fabián Carias MD | | | 2019 | Visit | | [address] | | | | | | [place] | | | | | | [address] | | | | | | | [...] | | | care | | | Cake Wringer-C | | | | | | [...] | | | care | | | Cake Wringer-C | | | | | | [...] | | | care | | | Cake Wringer-C | | | | | | [...] | | | care | | | Cake Wringer-C | | | | | | [...]
--- OUTSIDE RECORDS SUMMARY | ~2019-02-17 | XMS | Encounter Summary ---
Demographics + + + | Address | [address] | | | [place] [address] | + + + | Home Phone [...] Team Providers + +------+ + | Care Roller Name | Role | Phone | [...] | | | | [place] | [address] | | | | | [address] | [phone] | | | | | [phone] | | | +--------+ + + + [...] [place] | | | | | | [address] | | | | | | [phone] | | | | | | | | +--------+---------+ + + + | 02/26/ | Office | Urology | Lillie Fowler | | | 2018 | Visit | | [address] | | | | | | [address] | | | | | | [place], [place] | | | | | | [address] | | | | | | [phone] | | | | | | | | +--------+---------+ + + + | 03/16/ | Office | Neurology | Theresa, | | | 2018 | Visit | | [address] | | | | | | [address] [place], | | | | | | [place] [address] | | | | | | [phone] | | | | | | | | +--------+---------+ + + + | 01/06/ | Office | Primary Care | Massimo Ramos Pedro Luis | | | 2019 | Visit | | MD Fer [address] | | | | | | [place] | | | | | | [address] | | | | | | | | +--------+---------+ + + + | 10/03/ | Office | Neurology | Fabián Carias MD | | | 2019 | Visit | | [address] | | | | | | [place] | | | | | | [address] | | | | | | | [...] | | | care | | | Mold Burner-C | | | | | | | [...] | | | care | | | Mold Burner-C | | | | | | | [...] | | | care | | | Mold Burner-C | | | | | | | [...] | | | care | | | Mold Burner-C | | | | | | | [...]
--- OUTSIDE RECORDS SUMMARY | ~2019-02-17 | XMS | Encounter Summary ---
Demographics + + + | Address | [address] | | | [place] [address] | + + + | Home Phone [...] Providers + +------+ + | Care Inside Trucker Name | Role | Phone | + [...] | Encounter | HOSPITAL [facility] | Lin, TRANSMISSION REPAIRER [address] | | | | | CENTER [address] | [address] [place] | | | | | [place] | [address] | | | | | [address] | [phone] | | | | | [phone] | | | +--------+ + + + [...] | | | | | | [address] | | | | | | [place] | | | | | | [address] | | | | | | [phone] | | | | | | | | +--------+---------+ + + + | 02/26/ | Office | Urology | Lillie Fowler | | | 2018 | Visit | | [address] | | | | | | [address] | | | | | | [place] | | | | | | [address] | | | | | | [phone] | | | | | | | | +--------+---------+ + + + | 03/16/ | Office | Neurology | Theresa, | | | 2018 | Visit | | [address] | | | | | | [address] [place], | | | | | | [place] [address] | | | | | | [phone] | | | | | | | | +--------+---------+ + + + | 04/12/ | Office | Primary Care | Massimo Ramos | | | 2019 | Visit | | MD Fer [address] | | | | | | [place] | | | | | | [address] | | | | | | | | +--------+---------+ + + + | 10/03/ | Office | Neurology | Fabián Carias MD | | | 2019 | Visit | | [address] | | | | | | [place] | | | | | | [address] | | | | | | | [...] | | | care | | | Book Jogger-C | | | | | | | [...] | | | care | | | Book Jogger-C | | | | | | | [...] | | | care | | | Book Jogger-C | | | | | | | [...] | | | care | | | Book Jogger-C | | | | | | | [...] posteriorly projecting disk osteophyte. | | | Jwdfxybh-di-aupunoqqy canal width is approximately 10 mm. | [...] provide additional information. Job#: | | | [id number] Read By: DREW GARZA MD Released By: [...] mild posteriorly projecting disk osteophyte. | | Guznjzxn-rb-nywgzcprm canal width is approximately 10 mm. Foraminal [...] | carotids may provide additional information. Job#: [id number] Read By: | | DREW GARZA MD Released By: DREW GARZA MDDate: 11/24/2014 20:03 | | | |C4-5: Disk space narrowing is present with mild endplate sclerosis. No canal narrowing is seen. No foraminal narrowing evident. | | | |C5-6: Disk space narrowing is present with mild posteriorly projecting disk osteophyte. A brfvnem-hm-tectbbjaq canal width is approximately 10 mm. Foraminal [...]
--- OUTSIDE RECORDS SUMMARY | ~2019-02-17 | XMS | Encounter Summary ---
Demographics + + + | Address | [address] | | | [place] [address] | + + + | Home Phone [...] Providers + +------+ + | Care Senior Game Advisor Name | Role | Phone | [...] | | [address] [place], [place] | [place] [address] | | | | | [address] | [phone] | | | | | [phone] | | | +--------+ + + + [...] d call it a normal Holter monitor. [facility] Signed and Approved by: HARJEET FUNES [...] [place] | | | | | | [address] | | | | | | [phone] | | | | | | | | +--------+---------+ + + + | 02/26/ | Office | Urology | Lillie Fowler | | | 2018 | Visit | | [address]IE [address] | | | | | | [address] | | | | | | [place], [place] | | | | | | [address] | | | | | | [phone] | | | | | | | | +--------+---------+ + + + | 03/16/ | Office | Neurology | Theresa, | | | 2018 | Visit | | SHONDA Mckinney [address] [place], | | | | | | [place] [address] | | | | | | [phone] | | | | | | | [...] [place] | | | | | | [address] | | | | | | | [...] | | | care | | | Chlorine Operator-C | | | | | | [...] | | | care | | | Chlorine Operator-C | | | | | | [...] | | | care | | | Chlorine Operator-C | | | | | | [...] | | | care | | | Chlorine Operator-C | | | | | | | linical | + +--------+ +---+-----+ + + + | Note: Pt will | | check CBG's daily x1 | | Pt will take Lantis as | | prescribed | + + documented as of this encounter Visit Diagnoses Not on filedocumented in this encounter"
--- OUTSIDE RECORDS SUMMARY | ~2019-02-17 | XMS | Encounter Summary ---
Demographics + + + | Address | [address] | | | [place] [address] | + + + | Home Phone [...] Team Providers + +------+ + | Care Equipment Cleaner Name | Role | Phone | + +------+ + | Horacio Silvestre DO | PCP | | + +------+ + Encounter Details +--------+ + + + + | Date | Type | Department | Care Team | Description | +--------+ + + + + | 08/25/ | Hospital | [facility] | Horacio Silvestre, | Panlobular emphysema | | 2018 | Encounter | HOSPITAL [facility] | DO [address] | ([facility]) | | | | THERAPY [address] | [place] | | | | | [place], [place] | [address] | | | | | [address] | [phone] | | | | | [phone] | | | +--------+ + + + [...] | | | | | | disease, lobsterman | | | | | | | [...] Pulmonary Fun ction Test. Results faxed/sent to net applications developer for review. Patient discharged in stable condition per patient baseline level. Final/Interpreted results will be scanned into [employer] and sent to Ordering Provider. Electronically signed [...] [place] | | | | | | [address] | | | | | | [phone] | | | | | | | | +--------+---------+ + + + | 02/26/ | Office | Urology | Lillie Fowler | | | 2018 | Visit | | LILLIE Lopez [address] | | | | | | [address] | | | | | | [place], [place] | | | | | | [address] | | | | | | [phone] | | | | | | | | +--------+---------+ + + + | 03/16/ | Office | Neurology | Theresa, | | | 2019 | Visit | | [address] | | | | | [address] [place], | | | | | | [place] [address] | | | | | | [phone] | | | | | | | | +--------+---------+ + + + | 04/12/ | Office | Primary Care | Massimo Ramos | | | 2019 | Visit | | MD Fer [address] | | | | | | [place] | | | | | | [address] | | | | | | | | +--------+---------+ + + + | 10/03/ | Office | Neurology | Fabián Carias MD | | | 2019 | Visit | | [address] | | | | | | [place] | | | | | | [address] | | | | | | | [...] | | | care | | | Near East Archeology Professor-C | | | | | | [...] | | | care | | | Near East Archeology Professor-C | | | | | | [...] | | | care | | | Near East Archeology Professor-C | | | | | | [...] | | | care | | | Near East Archeology Professor-C | | | | | | [...]
--- OUTSIDE RECORDS SUMMARY | ~2019-02-17 | XMS | Encounter Summary ---
Demographics + + + | Address | [address] | | | [place] [address] | + + + | Home Phone [...] Team Providers + +------+ + | Care Heavy Equipment Operating Engineer Name | Role | Phone | [...] | | | | [place], [place] | [address] | | | | | [address] | [phone] | | | | | [phone] | | | +--------+ + + + [...] [place] | | | | | | [address] | | | | | | [phone] | | | | | | | | +--------+---------+ + + + | 02/26/ | Office | Urology | Sergio Fowlera | | | 2018 | Visit | | [address]IE [address] | | | | | | [address] | | | | | | [place] | | | | | | [address] | | | | | | [phone] | | | | | | | | +--------+---------+ + + + | 03/16/ | Office | Neurology | Theresa, | | | 2018 | Visit | | [address] | | | | | | [address] [place], | | | | | | [place] [address] | | | | | | [phone] | | | | | | | | +--------+---------+ + + + | 04/12/ | Office | Primary Care | Massimo Ramos | | | 2019 | Visit | | MD Fer [address] | | | | | | [place] | | | | | | [address] | | | | | | | | +--------+---------+ + + + | 10/03/ | Office | Neurology | Fabián Carias MD | | | 2019 | Visit | | [address] | | | | | | [place] | | | | | | [address] | | | | | | | [...] | | | care | | | Uranium Processing Supervisor-C | | | | | | [...] | | | care | | | Uranium Processing Supervisor-C | | | | | | [...] | | | care | | | Uranium Processing Supervisor-C | | | | | | [...] | | | care | | | Uranium Processing Supervisor-C | | | | | | [...] microvascular | | | disease. JOB #: [id number] Digitally Released by: Drew Lawrence | | [...] | | | | | JOB #: [id number] | | Digitally Released by: Drew Lawrence | | | | | | Read By: DREW LAWERNCE MD | | Date: 11/08/2016 13:33 | | | + + documented in this encounter Visit Diagnoses Not on filedocumented in this encounter"
--- OUTSIDE RECORDS SUMMARY | ~2019-02-17 | XMS | Encounter Summary ---
Demographics + + + | Address | [address] | | | [place] [address] | + + + | Home Phone [...] Providers + +------+ + | Care Farm Implement Engine Mechanic Name | Role | Phone | [...] [place] | | | | | | [address] | (Fax) | | | | | [phone] | | | +--------+ + + + [...] [place] | | | | | | [address] | | | | | | [phone] | | | | | | | | +--------+---------+ + + + | 02/26/ | Office | Urology | Lillie Fowler | | | 2018 | Visit | | [address]IE [address] | | | | | | [address] | | | | | | [place] | | | | | | [address] | | | | | | [phone] | | | | | | | | +--------+---------+ + + + | 03/16/ | Office | Neurology | Theresa, | | | 2018 | Visit | | [address] | | | | | | [address] [place], | | | | | | [place] [address] | | | | | | [phone] | | | | | | | | +--------+---------+ + + + | 04/12/ | Office | Primary Care | Massimo Ramos | | | 2019 | Visit | | MD Fer [address] | | | | | | [place] | | | | | | [address] | | | | | | | | +--------+---------+ + + + | 10/03/ | Office | Neurology | Fabián Carias MD | | | 2019 | Visit | | [address] | | | | | | [place] | | | | | | [address] | | | | | | | [...] | | | care | | | Pipe Maker-C | | | | | | [...] | | | care | | | Pipe Maker-C | | | | | | [...] | | | care | | | Pipe Maker-C | | | | | | [...] | | | care | | | Pipe Maker-C | | | | | | | linical | + +--------+ +---+-----+ + + + | Note: Pt will | | check CBG's daily x1 | | Pt will take Lantis as | | prescribed | + + documented as of this encounter Visit Diagnoses Not on filedocumented in this encounter"
--- OUTSIDE RECORDS SUMMARY | ~2019-02-17 | XMS | Encounter Summary ---
Demographics + + + | Address | [address] | | | [place] [address] | + + + | Home Phone [...] Team Providers + +------+ + | Care Vegetable I Farmworker Name | Role | Phone | + [...] Medication Refill | | 2017 | | [facility] | [address] | | | | | [facility] [address] | [facility], [place] | | | | | [address] [place], | [address] | | | | | [place] [address] | [phone] | | | | | [phone] | | | +--------+--------+ + + + [...] [place] | | | | | | [address] | | | | | | [phone] | | | | | | | | +--------+---------+ + + + | 02/26/ | Office | Urology | Lillie Fowler | | | 2018 | Visit | | [address] | | | | | | [address] | | | | | | [place] | | | | | | [address] | | | | | | [phone] | | | | | | | | +--------+---------+ + + + | 03/16/ | Office | Neurology | Theresa, | | | 2018 | Visit | | [address] | | | | | | [address] [place], | | | | | | [place] [address] | | | | | | [phone] | | | | | | | | +--------+---------+ + + + | 04/12/ | Office | Primary Care | Massimo Ramos | | | 2019 | Visit | | MD [address] | | | | | | [place] | | | | | | [address] | | | | | | | | +--------+---------+ + + + | 10/03/ | Office | Neurology | Fabián Carias MD | | | 2019 | Visit | | [address] | | | | | | [place], [place] | | | | | | [address] | | | | | | | [...] | | | care | | | Operator Cavity Pump-C | | | | | | | [...] | | | care | | | Operator Cavity Pump-C | | | | | | | [...] | | | care | | | Operator Cavity Pump-C | | | | | | | [...] | | | care | | | Operator Cavity Pump-C | | | | | | | linical | + +--------+ +---+-----+ + + + | Note: Pt will | | check CBG's daily x1 | | Pt will take Lantis as | | prescribed | + + documented as of this encounter Visit Diagnoses Not on filedocumented in this encounter"
--- OUTSIDE RECORDS SUMMARY | ~2019-02-17 | XMS | Encounter Summary ---
Demographics + + + | Address | [address] | | | [place] [address] | + + + | Home Phone [...] Team Providers + +------+ + | Care Motorboat Mechanic Helper Name | Role | Phone [...] | | | [facility] | [employer] | | | | | [address] [facility] [place], | | | | | | [place] [address] | | | | | | [phone] | | | +--------+ + + + [...] [place] | | | | | | [address] | | | | | | [phone] | | | | | | | | +--------+---------+ + + + | 02/26/ | Office | Urology | Lillie Fowler | | | 2018 | Visit | | [address] | | | | | | [address] | | | | | | [place], [place] | | | | | | [address] | | | | | | [phone] | | | | | | | | +--------+---------+ + + + | 03/16/ | Office | Neurology | Theresa, | | | 2018 | Visit | | [address] | | | | | | [address] [place], | | | | | | [place] [address] | | | | | | [phone] | | | | | | | | +--------+---------+ + + + | 04/12/ | Office | Primary Care | Massimo Ramos | | | 2019 | Visit | | MD Fer [address] | | | | | | [place] | | | | | | [address] | | | | | | | | +--------+---------+ + + + | 10/03/ | Office | Neurology | Fabián Carias MD | | | 2019 | Visit | | [address] | | | | | | [place] | | | | | | [address] | | | | | | | [...] | | | care | | | Space And Missile Operations Spacelift-C | | | | | | | [...] | | | care | | | Space And Missile Operations Spacelift-C | | | | | | | [...] | | | care | | | Space And Missile Operations Spacelift-C | | | | | | | [...] | | | care | | | Space And Missile Operations Spacelift-C | | | | | | | [...]
--- OUTSIDE RECORDS SUMMARY | ~2019-02-17 | XMS | Encounter Summary ---
Demographics + + + | Address | [address] | | | [place] [address] | + + + | Home Phone [...] Team Providers + +------+ + | Care Forming And Assembling Supervisor Name | Role | Phone | [...] diabetes | | 2017 | | [facility] | DO [address] | mellitus with | | | | MEDICAL [facility] [address] | [place], [place] | diabetic | | | | [address] [place], | [address] | polyneuropathy, with | | | | [place] [address] | [phone] | long-term current | | | | [phone] | | use of insulin (HCC) | [...] [place] | | | | | | [address] | | | | | | [phone] | | | | | | | | +--------+---------+ + + + | 02/26/ | Office | Urology | Lillie Fowler | | | 2018 | Visit | | [address] | | | | | | [address] | | | | | | [place], [place] | | | | | | [address] | | | | | | [phone] | | | | | | | | +--------+---------+ + + + | 03/16/ | Office | Neurology | Theresa, | | | 2018 | Visit | | [address] | | | | | | [address] [place], | | | | | | [place] [address] | | | | | | [phone] | | | | | | | [...] [place] | | | | | | [address] | | | | | | | [...] | | | care | | | Savings Teller-C | | | | | | | [...] | | | care | | | Savings Teller-C | | | | | | | [...] | | | care | | | Savings Teller-C | | | | | | | [...] | | | care | | | Savings Teller-C | | | | | | | [...] + + | [place] [facility] | [address] | [place] [address] | [phone] | | [facility] | | | | | [facility] | | | | + + + + + documented in this encounter Visit Diagnoses + + | Diagnosis | + + | Type 2 diabetes mellitus with diabetic polyneuropathy, 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) - Primary | + + documented in this encounter"
--- OUTSIDE RECORDS SUMMARY | ~2019-02-17 | XMS | Encounter Summary ---
Demographics + + + | Address | [address] | | | [place] [address] | + + + | Home Phone [...] Team Providers + +------+ + | Care Household Coordinator Name | Role | Phone | [...] [facility] | DO [address] [place] | | | | | MEDICAL [facility] [address] | [place], [place] | | | | | [address] [place], | [address] | | | | | [place] [address] | [phone] | | | | | [phone] | | | +--------+ + + + [...] [place] | | | | | | [address] | | | | | | [phone] | | | | | | | | +--------+---------+ + + + | 02/26/ | Office | Urology | Lillie oFwler | | | 2018 | Visit | | [address] | | | | | | [address] | | | | | | [place] | | | | | | [address] | | | | | | [phone] | | | | | | | | +--------+---------+ + + + | 03/16/ | Office | Neurology | Theresa, | | | 2018 | Visit | | [address] | | | | | | [address] [place], | | | | | | [place] [address] | | | | | | [phone] | | | | | | | | +--------+---------+ + + + | 04/12/ | Office | Primary Care | Massimo Ramos | | | 2019 | Visit | | MD Fer [address] | | | | | | [place] | | | | | | [address] | | | | | | | | +--------+---------+ + + + | 10/03/ | Office | Neurology | Fabián Carias MD | | | 2019 | Visit | | [address] | | | | | | [place] | | | | | | [address] | | | | | | | [...] | | | care | | | Hydroelectric Operator-C | | | | | | [...] | | | care | | | Hydroelectric Operator-C | | | | | | [...] | | | care | | | Hydroelectric Operator-C | | | | | | [...] | | | care | | | Hydroelectric Operator-C | | | | | | | linical | + +--------+ +---+-----+ + + + | Note: Pt will | | check CBG's daily x1 | | Pt will take Lantis as | | prescribed | + + documented as of this encounter Visit Diagnoses Not on filedocumented in this encounter"
--- OUTSIDE RECORDS SUMMARY | ~2019-02-17 | XMS | Encounter Summary ---
Demographics + + + | Address | [address] | | | [place] [address] | + + + | Home Phone [...] Team Providers + +------+ + | Care Punch Operator Name | Role | Phone [...] | | | | | | [place] [address] | | | | | | [phone] | | | +--------+ + + + [...] [place] | | | | | | [address] | | | | | | [phone] | | | | | | | | +--------+---------+ + + + | 02/26/ | Office | Urology | MalcolmSergioa | | | 2018 | Visit | | [address] | | | | | | [address] | | | | | | [place], [place] | | | | | | [address] | | | | | | [phone] | | | | | | | | +--------+---------+ + + + | 03/16/ | Office | Neurology | Theresa, | | | 2018 | Visit | | [address] | | | | | | [address] [place], | | | | | | [place] [address] | | | | | | [phone] | | | | | | | [...] [place] | | | | | | [address] | | | | | | | [...] | | | care | | | Accessioner-C | | | | | | | [...] | | | care | | | Accessioner-C | | | | | | | [...] | | | care | | | Accessioner-C | | | | | | | [...] | | | care | | | Accessioner-C | | | | | | | [...]
--- OUTSIDE RECORDS SUMMARY | ~2019-02-17 | XMS | Encounter Summary ---
Demographics + + + | Address | [address] | | | [place] [address] | + + + | Home Phone [...] | | + + +---------+ + | Juna Gill | ECON | Unknown | | + + +---------+ + Care Team Providers + +------+ + | Care Retail Branch Manager Name | Role | Phone | [...] Medication Refill | | 2017 | | [facility] | DO [address] | | | | | MEDICAL CLIN[facility] [address] | [facility], [place] | | | | | [address] [place], | [address] | | | | | [place] [address] | [phone] | | | | | [phone] | | | +--------+--------+ + + + [...] [place] | | | | | | [address] | | | | | | [phone] | | | | | | | | +--------+---------+ + + + | 02/26/ | Office | Urology | Lillie Fowler | | | 2018 | Visit | | [address] | | | | | | [address] | | | | | | [place] | | | | | | [address] | | | | | | [phone] | | | | | | | | +--------+---------+ + + + | 03/16/ | Office | Neurology | Theresa, | | | 2018 | Visit | | [address] | | | | | | [address] [place], | | | | | | [place] [address] | | | | | | [phone] | | | | | | | | +--------+---------+ + + + | 04/12/ | Office | Primary Care | Massimo Ramos | | | 2019 | Visit | | MD Fer [address] | | | | | | [place] | | | | | | [address] | | | | | | | | +--------+---------+ + + + | 10/03/ | Office | Neurology | Fabián Carias MD | | | 2019 | Visit | | [address] | | | | | | [place], [place] | | | | | | [address] | | | | | | | [...] | | | care | | | Language Asst-C | | | | | | [...] | | | care | | | Language Asst-C | | | | | | [...] | | | care | | | Language Asst-C | | | | | | [...] | | | care | | | Language Asst-C | | | | | | [...] | | unspecified | + + | retirement current use of opiate analgesic Encounter for long-term (current) use of | | other medications | + + | Bilateral carpal tunnel syndrome Carpal tunnel syndrome | + + documented in this encounter"
--- OUTSIDE RECORDS SUMMARY | ~2019-02-17 | XMS | Encounter Summary ---
Demographics + + + | Address | [address] | | | [place] [address] | + + + | Home Phone [...] Team Providers + +------+ + | Care Sccm Administrator Name | Role | Phone | [...] | [address] [place], [place] | [place] [address] | | | | | [address] | [phone] | | | | | [phone] | | | +--------+ + + + [...] | | | | use of insulin ([facility]) | | | | | | [...] | | | | use of insulin ([facility]) | | | | | | [...] | | | | | | disease, penitentiary | | | | | | | [...] [place] | | | | | | [address] | | | | | | [phone] | | | | | | | | +--------+---------+ + + + | 02/26/ | Office | Urology | Lillie Fowler | | | 2018 | Visit | | [address] | | | | | | [address] | | | | | | [place], [place] | | | | | | [address] | | | | | | [phone] | | | | | | | | +--------+---------+ + + + | 03/16/ | Office | Neurology | Theresa, | | | 2018 | Visit | | [address] | | | | | | [address] [place], | | | | | | [place] [address] | | | | | | [phone] | | | | | | | | +--------+---------+ + + + | 04/12/ | Office | Primary Care | Massimo Ramos | | | 2019 | Visit | | MD Fer [address] | | | | | | [place], [place] | | | | | | [address] | | | | | | | | +--------+---------+ + + + | 10/03/ | Office | Neurology | Fabián Carias MD | | | 2020 | Visit | | [address] | | | | | | [place] | | | | | | [address] | | | | | | | [...] | | | care | | | Feed Mill Supervisor-C | | | | | | [...] | | | care | | | Feed Mill Supervisor-C | | | | | | [...] | | | care | | | Feed Mill Supervisor-C | | | | | | [...] | | | care | | | Feed Mill Supervisor-C | | | | | | [...] J?MRN: | | | | | | [id number] | | | [id number] | | | ecurit | | | [...] + + | [place] [facility] | [address] | [place] [address] | [phone] | | [facility] | | | | + + + + + documented in this encounter Visit Diagnoses + + | Diagnosis | + + | Cellulitis of right lower extremity - Primary Cellulitis and abscess of leg, except | | foot | + + documented in this encounter
--- OUTSIDE RECORDS SUMMARY | ~2019-02-17 | XMS | Encounter Summary ---
Demographics + + + | Address | [address] | | | [place] [address] | + + + | Home Phone [...] Team Providers + +------+ + | Care Dermatologist Name | Role | Phone | + [...] [place], [place] | | | | | [address] | [address] | | | | | [phone] | [phone] | | | | | | | [...] The patient was planned for discharge to [facility] due to the fact that he lives in [facility] nd was still requiring antibiotics as well as some physical therapy, dressing changes, etc. On today at the time of discharge he is tolerating he repacking of the wound well. The J-P drain is removed due to minimal drainage. Plan is to have him be discharged to [facility]. Medication list and reconciliation is done prior to discharge. He is going to be given CIPROFLOXACIN 500 mg b.i.d., also is going to be kept o n his usual medications and is given OXYCODONE/ACETAMINOPHEN for pain. DISCHARGE DIAGNOSES: 1. Acute diverticulitis with perforation. 2. Postoperative wound infection. 3. History of hypertension. 4. Type 2 diabetes. 5. Hypercholesterolemia. 6. Neuropathy. [facility] Signed and Approved by: LISA TAYLOR MD [...] [place] | | | | | | [address] | | | | | | [phone] | | | | | | | | +--------+---------+ + + + | 02/26/ | Office | Urology | Lillie Fowler | | | 2018 | Visit | | [address] | | | | | | [address] | | | | | | [place], [place] | | | | | | [address] | | | | | | [phone] | | | | | | | | +--------+---------+ + + + | 03/16/ | Office | Neurology | Theresa, | | | 2019 | Visit | | [address] | | | | | | [address] [place], | | | | | | [place] [address] | | | | | | [phone] | | | | | | | | +--------+---------+ + + + | 04/12/ | Office | Primary Care | Massimo Ramos | | | 2019 | Visit | | MD [address] | | | | | | [place] | | | | | | [address] | | | | | | | | +--------+---------+ + + + | 10/03/ | Office | Neurology | Fabián Carias MD | | | 2019 | Visit | | [address] | | | | | | [place] | | | | | | [address] | | | | | | | [...] | | care | | | Line Installer-C | | | | | | [...] | | care | | | Line Installer-C | | | | | | [...] | | care | | | Line Installer-C | | | | | | [...] | | care | | | Line Installer-C | | | | | | [...]
--- OUTSIDE RECORDS SUMMARY | ~2019-02-17 | XMS | Encounter Summary ---
Demographics + + + | Address | [address] | | | [place] [address] | + + + | Home Phone [...] Team Providers + +------+ + | Care Agriculture Teacher Name | Role | Phone | [...] [place] | | | | | | [address] | [place], [place] | | | | | | Phone: | [address] | | | | | | [phone] | Phone: | | | | | | Fax: | [phone] | | | | | | [phone] | Fax: | | | | | | | [phone] | +--------+ + + + + + [...] | | [address] [place], | [address] | (Primary Dx); | | | | [place] [address] | [phone] | Abdominal discomfort | | | | [phone] | | | +--------+ + + + [...] [place] | | | | | | [address] | | | | | | [phone] | | | | | | | | +--------+---------+ + + + | 02/26/ | Office | Urology | Lillie Fowler | | | 2018 | Visit | | [address] | | | | | | [address] | | | | | | [place], [place] | | | | | | [address] | | | | | | [phone] | | | | | | | | +--------+---------+ + + + | 03/16/ | Office | Neurology | Theresa, | | | 2018 | Visit | | [address] | | | | | | [address] [place], | | | | | | [place] [address] | | | | | | [phone] | | | | | | | | +--------+---------+ + + + | 04/12/ | Office | Primary Care | Massimo Ramos Pedro Luis | | | 2019 | Visit | | MD [address] | | | | | | [place] | | | | | | [address] | | | | | | | | +--------+---------+ + + + | 10/03/ | Office | Neurology | Fabián Carias MD | | | 2019 | Visit | | [address] | | | | | | [place] | | | | | | [address] | | | | | | | [...] | | | care | | | Stove Mounter-C | | | | | | | [...] | | | care | | | Stove Mounter-C | | | | | | | [...] | | | care | | | Stove Mounter-C | | | | | | | [...] | | | care | | | Stove Mounter-C | | | | | | | [...] | Ordering Provider Lizbeth REDDY Provider - [facility] | [facility] | | /W, ZENON, [employer] /F Collected Date [id number] Received | INCYTE | | Date [id number] Completed Date [id number] Specimens: Left shoulder | | | lesion Pre-Op Diagnosis: Painful skin lesion Post-Op Diagnosis: | | | None Given Chart/ID#: [id number] Diagnosis: Skin, left shoulder, | | | [...] | | | examination is performed at [facility], [address], | | | [place] [address]. Microscopic Examination: Microscopic | | | examination by Earl Quiros M.D. User 1 Lab | | | PERFORMING LABORATORY: Tissue processing and slide preparation were | | | performed by [facility], [address], [place], [place], | | | [address] . Professional interpretation was performed by Ramone Nye | | | Pathology[facility]rzej [address] [facility] [facility] [address], [place] [address]. | | + + + + +---------+ [...]
--- OUTSIDE RECORDS SUMMARY | ~2019-02-17 | XMS | Encounter Summary ---
Demographics + + + | Address | [address] | | | [place] [address] | + + + | Home Phone [...] Team Providers + +------+ + | Care Solution Consultant Name | Role | Phone | [...] Pain | | 2019 | | [facility] | DO [address] | | | | | MEDICAL CLIN[facility] [address] | [facility], [place] | | | | | [address] [facility], | [address] | | | | | [place] [address] | [phone] | | | | | [phone] | | | +--------+ + + + [...] [place] | | | | | | [address] | | | | | | [phone] | | | | | | | | +--------+---------+ + + + | 02/26/ | Office | Urology | Lillie Fowler | | | 2018 | Visit | | LILLIE Lopez [address] | | | | | | [address] | | | | | | [place], [place] | | | | | | [address] | | | | | | [phone] | | | | | | | | +--------+---------+ + + + | 03/16/ | Office | Neurology | Theresa, | | | 2018 | Visit | | [address] | | | | | | [address] [place], | | | | | | [place] [address] | | | | | | [phone] | | | | | | | | +--------+---------+ + + + | 04/12/ | Office | Primary Care | Massimo Ramos | | | 2019 | Visit | | MD Fer [address] | | | | | | [address] [place] | | | | | | [address] | | | | | | | | +--------+---------+ + + + | 10/03/ | Office | Neurology | Fabián Carias MD | | | 2019 | Visit | | [address] | | | | | | [place] | | | | | | [address] | | | | | | | [...] | | | care | | | Plumbing Drafter-C | | | | | | [...] | | | care | | | Plumbing Drafter-C | | | | | | [...] | | | care | | | Plumbing Drafter-C | | | | | | [...] | | | care | | | Plumbing Drafter-C | | | | | | [...]
--- OUTSIDE RECORDS SUMMARY | ~2019-02-17 | XMS | Encounter Summary ---
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 | | | | | | | [...] [place] | | | | | | [address] | | | | | | [phone] | | | | | | | | +--------+---------+ + + + | 02/26/ | Office | Urology | Lillie Fowler | | | 2018 | Visit | | [address] | | | | | | [address] | | | | | | [place] | | | | | | [address] | | | | | | [phone] | | | | | | | | +--------+---------+ + + + | 03/16/ | Office | Neurology | Tehresa, | | | 2018 | Visit | | [address] | | | | | | [address] [place], | | | | | | [place] [address] | | | | | | [phone] | | | | | | | | +--------+---------+ + + + | 04/12/ | Office | Primary Care | Massimo Ramos | | | 2019 | Visit | | MD Fer [address] | | | | | | [place] | | | | | | [address] | | | | | | | | +--------+---------+ + + + | 10/03/ | Office | Neurology | Fabián Carias MD | | | 2020 | Visit | | [address] | | | | | | [place] | | | | | | [address] | | | | | | | [...] | | | care | | | Deck Mate-C | | | | | | | [...] | | | care | | | Deck Mate-C | | | | | | | [...] | | | care | | | Deck Mate-C | | | | | | | [...] | | | care | | | Deck Mate-C | | | | | | | [...]
--- OUTSIDE RECORDS SUMMARY | ~2019-02-17 | XMS | Encounter Summary ---
Demographics + + + | Address | [address] | | | [place] [address] | + + + | Home Phone [...] Team Providers + +------+ + | Care Spare Hand Name | Role | Phone | [...] | sciatica, | [address] [place] | [address] | | | | | unspecified | [place], [place] | Phone: | | | | | back pain | [address] | [phone] | | | | | laterality | Phone: | Fax: | | | | | Procedures | [phone] | [phone] | | | | | MRI Lumbar | Fax: | | | | | | Spine wo | [phone] | | | | | | Contrast [...] | sciatica, | [address] [place] | [address] | | | | | unspecified | [place], [place] | Phone: | | | | | back pain | [address] | [phone] | | | | | laterality | Phone: | Fax: | | | | | Procedures | [phone] | [phone] | | | | | MRI Lumbar | Fax: | | | | | | Spine wo | [phone] | | | | | | Contrast [...] | | | | [place], [place] | [address] | unspecified back | | | | [address] | | pain laterality | | | | [phone] | | | +--------+ + + + [...] | | | | use of insulin ([facility]) | | | | | | [...] | | | | | 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, 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 | | | | | | [...] [place] | | | | | | [address] | | | | | | [phone] | | | | | | | | +--------+---------+ + + + | 02/26/ | Office | Urology | Lillie Fowler | | | 2018 | Visit | | [address]IE Lopez [address] | | | | | | [address] | | | | | | [place], [place] | | | | | | [address] | | | | | | [phone] | | | | | | | | +--------+---------+ + + + | 03/16/ | Office | Neurology | Theresa, | | | 2018 | Visit | | [address] | | | | | | [address] [place], | | | | | | [place] [address] | | | | | | [phone] | | | | | | | | +--------+---------+ + + + | 04/12/ | Office | Primary Care | Massimo Ramos | | | 2019 | Visit | | MD Fer [address] | | | | | | [place] | | | | | | [address] | | | | | | | | +--------+---------+ + + + | 10/03/ | Office | Neurology | Fabián Carias MD | | | 2019 | Visit | | [address] | | | | | | [place] | | | | | | [address] | | | | | | | [...] | | | care | | | Drilling Foreman-C | | | | | | [...] | | | care | | | Drilling Foreman-C | | | | | | [...] | | | care | | | Drilling Foreman-C | | | | | | [...] | | | care | | | Drilling Foreman-C | | | | | | [...] FINDINGS: There are 5 | | | ejg-spj-dvarpor lumbar vertebral bodies. There is straightening of [...] performed | | without contrast.FINDINGS:There are 5 yme-okj-usxsslr lumbar vertebral bodies.There is | | straightening [...]
--- OUTSIDE RECORDS SUMMARY | ~2019-02-17 | XMS | Encounter Summary ---
Demographics + + + | Address | [address] | | | [place] [address] | + + + | Home Phone [...] Providers + +------+ + | Care Legal Nurse Consultant Name | Role | Phone | [...] | | | thy | [place] | [address] | | | | | Procedures | [address] | Phone: | | | | | PET CT Skull | Phone: | [phone] | | | | | Base To Mid | [phone] | Fax: | | | | | Thigh PET | Fax: | [phone] | | | | | CT Limited | [phone] | | +--------+--------+ + + + + [...] | | | | [place], [place] | [address] | | | | | [address] | [phone] | | | | | [phone] | | | +--------+ + + + [...] [place] | | | | | | [address] | | | | | | [phone] | | | | | | | | +--------+---------+ + + + | 02/26/ | Office | Urology | Lillie Fowler | | | 2018 | Visit | | [address] | | | | | | [address] | | | | | | [place], [place] | | | | | | [address] | | | | | | [phone] | | | | | | | | +--------+---------+ + + + | 03/16/ | Office | Neurology | Theresa, | | | 2018 | Visit | | [address] | | | | | | [address] [place], | | | | | | [place] [address] | | | | | | [phone] | | | | | | | [...] [place] | | | | | | [address] | | | | | | | [...] | | | care | | | Sex Therapist-C | | | | | | [...] | | | care | | | Sex Therapist-C | | | | | | [...] | | | care | | | Sex Therapist-C | | | | | | [...] | | | care | | | Sex Therapist-C | | | | | | [...]
--- OUTSIDE RECORDS SUMMARY | ~2019-02-17 | XMS | Encounter Summary ---
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 [address] RM | [address] Phone: | | | | | to known | [address] [place] | [phone] | | | | | physiologica | [place], [place] | Fax: | | | | | l condition | [address] | [phone] | | | | | Unspecified | Phone: | | | | | | | [phone] | | | | | | abnormalitie | Fax: | | | | | | s of gait | [phone] | | | | | | and [...] unspecified back | | | | [place] [address] | | pain laterality | | | | [phone] | | (Primary Dx); Sprain | | | | | | of ligaments of | | | | | | lumbar spine, | | | | | | sequela ; | | | | | | Uncontrolled type 2 | | | | | | diabetes mellitus | | | | | | with hyperglycemia | | | | | | ([facility]) | +--------+---------+ + + + Social History [...] be different from the original. Patient Instructions [facility] Neurology Clinic Dr. Jalyn Carias, Neurologist Date:11/23/2018 [...] le, and scrabble, other puzzle games like eSentire, FoodEssentials. Play computer/mobile applications such as IMGuest Trigger point injection 2018, @ 11:15 Use a cane for ambulation ASA 325 and Atorvastain 40 mg daily for stroke prophyloaxis Control diabetes Any Questions please call JAMAAL Marroquin or Dr. Carias at [facility] Neurology Clinic General Neck and Back Pain [...] are taking other medicines. You may use mjet-ygb-omalhzu medicine to control pain, unless another pain [...] by your healthcare provider Date Last Reviewed: 10/06/201519990065-6086 [employer]. [address] [place] [address], [place] [address]. All righ ts reserved. This information is [...] teens without first discussing it with your universal health services's healthcare provider. Ice Ice reduces muscle pain [...] use ice several times a day. Medicines Ckjr-xnk-fdqwtwp pain relieversincludeacetaminophen and anti-inflammatory medicines, wh ich [...] a heating p ad. Date Last Reviewed: 09/05/201719997393-9[address] [employer] [place] [address]. All righ ts reserved. This information is [...] of Nutrition and Dietetics www.eatright.org ? [employer] [place] [employer] 218-708-3046 www.diabetes.org Date Last Reviewed: 11/06/201519990587-050[address] [employer] [place] [address]. All righ ts reserved. This information is [...] for lean, lower-fat choices. Date Last Reviewed: 06/06/201519992838-7109 [employer]. [address] [place] [address]. All righ ts reserved. This information is not intended as a substitute for professional medical care. Always follow your healthcare professional's instructions. documented in this encounter Progress Notes Jalyn Carias MD - 11/23/2018 11:00 AM PDT Patient: Geraldo Mcfadden Medical Record: [id number] Date of Services: 11/23/2018 Referring Doctor: Horacio Silvestre DO Chief Complaint: Status post CVA History of Present Illness: Mr. Mcfadden was a 78-year-old right-handed male, seen for neurologic evaluation, recently disc harged in [facility] for status post CVA on November 04, [...] PT/OT through [facility]. He presently tablets with a cane. [...] as acupuncture treatments, massage therapy, relaxation therapy, iuso-jmw-yexfjpz creams a nd patches, CBD, and cortisone [...] and oriented to time, place, and person. [facility] is fluent. Memory, attention, comprehension, and general [...] CEREBELLAR EXAMINATION: There is no dysmetria on xhldzw-es-ummu test. MISCELLANEOUS EXAM: Well Kept, well nourished, [...] le, and scrabble, other puzzle games like Earthmillu, Orabrushng. Play computer/mobile applications such as Zaplee and [employer]SchoolStuff.[employer] GAMES Trigger point injection 2018, @ 11:15 Use a cane for ambulation ASA 325 and Atorvastain 40 mg daily for stroke prophyloaxis Control diabetes Advised to take vitamin E and B complexes. In event that his cognitive functions worsens, discussed the possibility of cholinesterase inhibitors such as Aricept, etc. Any Questions please call JAMAAL Marroquin or Dr. Carias at [facility] Neurology Clinic Jalyn Carias MD11/23/201811:05 Electronically signed NOTE: Part of this report was transcribed using voice recognition software. Every effort was made to ensure accuracy. However, inadvertent computerize project leader errors may be present documented in this [...] [place] | | | | | | [address] | | | | | | [phone] | | | | | | | | +--------+---------+ + + + | 02/26/ | Office | Urology | Lillie Fowler | | | 2018 | Visit | | [address]ILLIE Lopez [address] | | | | | | [address] | | | | | | [place] | | | | | | [address] | | | | | | [phone] | | | | | | | | +--------+---------+ + + + | 03/16/ | Office | Neurology | Theresa, | | | 2018 | Visit | | [address] | | | | | | [address] [place], | | | | | | [place] [address] | | | | | | [phone] | | | | | | | | +--------+---------+ + + + | 04/12/ | Office | Primary Care | Massimo Ramos | | | 2019 | Visit | | MD Fer [address] | | | | | | [address] [place] | | | | | | [address] | | | | | | | | +--------+---------+ + + + | 10/03/ | Office | Neurology | Jalyn Carias MD | | | 2019 | Visit | | [address] | | | | | | [place] | | | | | | [address] | | | | | | | [...] | | | care | | | Heating And Ventilating Tender-C | | | | | | [...] | | | care | | | Heating And Ventilating Tender-C | | | | | | [...] | | | care | | | Heating And Ventilating Tender-C | | | | | | [...] | | | care | | | Heating And Ventilating Tender-C | | | | | | [...] JALYN CARIAS M.D. | | | Neurologist [phone] Electronically signed NOTE: Part of | | | this report was transcribed using voice recognition | | | software. Every effort was made to ensure | | | accuracy. However, inadvertent computerize | | | project leader errors may be present | | + [...]
--- OUTSIDE RECORDS SUMMARY | ~2019-02-17 | XMS | Encounter Summary ---
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 [...] CATARACT REMOVAL; Surgeon: Tay Kern MD; Location: [facility]ul [employer] MOHS [...] [place] | | | | | | [address] | | | | | | [phone] | | | | | | | | +--------+---------+ + + + | 02/26/ | Office | Urology | Malcolm Lillie | | | 2018 | Visit | | [address] | | | | | | [address] | | | | | | [place] | | | | | | [address] | | | | | | [phone] | | | | | | | | +--------+---------+ + + + | 03/16/ | Office | Neurology | Theresa, | | | 2018 | Visit | | [address] | | | | | | [address] [place], | | | | | | [place] [address] | | | | | | [phone] | | | | | | | | +--------+---------+ + + + | 04/12/ | Office | Primary Care | Massimo Ramos | | | 2019 | Visit | | MD Fer [address] | | | | | | [place] | | | | | | [address] | | | | | | | | +--------+---------+ + + + | 10/03/ | Office | Neurology | Fabián Carias MD | | | 2019 | Visit | | [address] | | | | | | [place] | | | | | | [address] | | | | | | | [...] | care | | | Director Of Scientific Research-C | | | | | | [...] | care | | | Director Of Scientific Research-C | | | | | | [...] | care | | | Director Of Scientific Research-C | | | | | | [...] | care | | | Director Of Scientific Research-C | | | | | | [...] Carpal tunnel syndrome | + + | 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
--- OUTSIDE RECORDS SUMMARY | ~2019-02-17 | XMS | Encounter Summary ---
Demographics + + + | Address | [address] | | | [place] [address] | + + + | Home Phone [...] Providers + +------+ + | Care Dog Boarder Name | Role | Phone | + [...] Medication Refill; | | 2017 | | [facility] | [address] | Medication Refill | | | | MEDICAL CLINIC [address] | [facility], [place] | | | | | [address] [place], | [address] | | | | | [place] [address] | [phone] | | | | | [phone] | | | +--------+--------+ + + + [...] [place] | | | | | | [address] | | | | | | [phone] | | | | | | | | +--------+---------+ + + + | 02/26/ | Office | Urology | Lillie Fowler | | | 2018 | Visit | | [address] | | | | | | [address] | | | | | | [place], [place] | | | | | | [address] | | | | | | [phone] | | | | | | | | +--------+---------+ + + + | 03/16/ | Office | Neurology | Theresa, | | | 2018 | Visit | | [address] | | | | | | [address] [place], | | | | | | [place] [address] | | | | | | [phone] | | | | | | | | +--------+---------+ + + + | 04/12/ | Office | Primary Care | Massimo Ramos | | | 2019 | Visit | | MD Fer [address] | | | | | | [place] | | | | | | [address] | | | | | | | | +--------+---------+ + + + | 10/03/ | Office | Neurology | Fabián Carias MD | | | 2019 | Visit | | [address] | | | | | | [place] | | | | | | [address] | | | | | | | [...] | | care | | | Technical Manager-C | | | | | | [...] | | care | | | Technical Manager-C | | | | | | [...] | | care | | | Technical Manager-C | | | | | | [...] | | care | | | Technical Manager-C | | | | | | [...] | | 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
--- OUTSIDE RECORDS SUMMARY | ~2019-02-17 | XMS | Encounter Summary ---
Demographics + + + | Address | [address] | | | [place] [address] | + + + | Home Phone [...] Team Providers + +------+ + | Care Kiln Setter Name | Role | Phone | [...] Problem | | 2018 | | [facility] | DO [address] | | | | | MEDICAL CLINIC [address] | [facility], [place] | | | | | [address] [place], | [address] | | | | | [place] [address] | [phone] | | | | | [phone] | | | +--------+ + + + [...] [place] | | | | | | [address] | | | | | | [phone] | | | | | | | | +--------+---------+ + + + | 02/26/ | Office | Urology | Lillie Fowler | | | 2018 | Visit | | [address] | | | | | | [address] | | | | | | [place], [place] | | | | | | [address] | | | | | | [phone] | | | | | | | | +--------+---------+ + + + | 03/16/ | Office | Neurology | Theresa, | | | 2018 | Visit | | [address] | | | | | | [address] [place], | | | | | | [place] [address] | | | | | | [phone] | | | | | | | | +--------+---------+ + + + | 04/12/ | Office | Primary Care | Massimo Ramos | | | 2019 | Visit | | MD Fer [address] | | | | | | [place] | | | | | | [address] | | | | | | | | +--------+---------+ + + + | 10/03/ | Office | Neurology | Fabián Carias MD | | | 2019 | Visit | | [address] | | | | | | [place] | | | | | | [address] | | | | | | | [...] | | | care | | | Chemist Organic-C | | | | | | | [...] | | | care | | | Chemist Organic-C | | | | | | | [...] | | | care | | | Chemist Organic-C | | | | | | | [...] | | | care | | | Chemist Organic-C | | | | | | | [...] - 1.030 | [place] | | | [place] | | | RONDE | | | [...] + + | [place] | [address] [facility] | [place] [address] | [phone] | | [facility] [...]
--- OUTSIDE RECORDS SUMMARY | ~2019-02-17 | XMS | Encounter Summary ---
Demographics + + + | Address | [address] | | | [place] [address] | + + + | Home Phone [...] Team Providers + +------+ + | Care Coding Director Name | Role | Phone | + +------+ + | Ryan Gutiérrez MD | PCP | | + +------+ + Encounter Details +--------+ + + + + | Date | Type | Department | Care Team | Description | +--------+ + + + + | 01/15/ | Hospital | [facility] | Jessica Brandt, | | | 2017 | Encounter | HOSPITAL MED SURG | BILLBOARD POSTER [address] | | | | | [address] | [address] [place], [place] | | | | | [place], [place] | [address] | | | | | [address] | | | | | | [phone] | Faizan Wesley | | | | | | MD Zari [address] | | | | | | [place], [place] | | | | | | [address] | | | | | | | [...] [place] | | | | | | [address] | | | | | | [phone] | | | | | | | | +--------+---------+ + + + | 02/26/ | Office | Urology | Lillie Fowler | | | 2018 | Visit | | [address] | | | | | | [address] | | | | | | [place], [place] | | | | | | [address] | | | | | | [phone] | | | | | | | | +--------+---------+ + + + | 03/16/ | Office | Neurology | Theresa, | | | 2018 | Visit | | [address] | | | | | | [address] [place], | | | | | | [place] [address] | | | | | | [phone] | | | | | | | | +--------+---------+ + + + | 04/12/ | Office | Primary Care | Massimo Ramos | | | 2019 | Visit | | MD Fer [address] | | | | | | [place] | | | | | | [address] | | | | | | | | +--------+---------+ + + + | 10/03/ | Office | Neurology | Fabián Carias MD | | | 2019 | Visit | | [address] | | | | | | [place] | | | | | | [address] | | | | | | | [...] | | care | | | Emergency Department Coordinator-C | | | | | | [...] | | care | | | Emergency Department Coordinator-C | | | | | | [...] | | care | | | Emergency Department Coordinator-C | | | | | | [...] | | care | | | Emergency Department Coordinator-C | | | | | | [...]
--- OUTSIDE RECORDS SUMMARY | ~2019-02-17 | XMS | Encounter Summary ---
Demographics + + + | Address | [address] | | | [place] [address] | + + + | Home Phone [...] Team Providers + +------+ + | Care Campus Safety Officer Name | Role | Phone [...] | | | [address] [place], | [facility] [place] | | | | | [place] [address] | [address] | | | | | [phone] | [phone] | | | | | | | [...] [place] | | | | | | [address] | | | | | | [phone] | | | | | | | | +--------+---------+ + + + | 02/26/ | Office | Urology | Lillie Fowler | | | 2018 | Visit | | [address] | | | | | | [address] | | | | | | [place] | | | | | | [address] | | | | | | [phone] | | | | | | | | +--------+---------+ + + + | 03/16/ | Office | Neurology | Theresa, | | | 2018 | Visit | | [address] | | | | | [address] [place], | | | | | | [place] [address] | | | | | | [phone] | | | | | | | | +--------+---------+ + + + | 04/12/ | Office | Primary Care | Massimo Ramos | | | 2019 | Visit | | MD Fer [address] | | | | | | [place] | | | | | | [address] | | | | | | | | +--------+---------+ + + + | 10/03/ | Office | Neurology | Fabián Carias MD | | | 2019 | Visit | | [address] | | | | | | [place] | | | | | | [address] | | | | | | | [...] | | | care | | | Rabble Furnace Tender-C | | | | | [...] | | | care | | | Rabble Furnace Tender-C | | | | | [...] | | | care | | | Rabble Furnace Tender-C | | | | | [...] | | | care | | | Rabble Furnace Tender-C | | | | | | | linical | + +--------+ +---+-----+ + + + | Note: Pt will | | check CBG's daily x1 | | Pt will take Lantis as | | prescribed | + + documented as of this encounter Visit Diagnoses Not on filedocumented in this encounter"
--- OUTSIDE RECORDS SUMMARY | ~2019-02-17 | XMS | Encounter Summary ---
Demographics + + + | Address | [address] | | | [place] [address] | + + + | Home Phone [...] Team Providers + +------+ + | Care Fountain Vending Mechanic Name | Role | Phone | [...] 2017 | | [facility] | DO [address] [place] | | | | | MEDICAL CLINIC [address] | [facility], [place] | | | | | [address] [place], | [address] | | | | | [place] [address] | [phone] | | | | | [phone] | | | +--------+ + + + [...] [place] | | | | | | [address] | | | | | | [phone] | | | | | | | | +--------+---------+ + + + | 02/26/ | Office | Urology | Lillie Fowler | | | 2018 | Visit | | [address] | | | | | | [address] | | | | | | [place], [place] | | | | | | [address] | | | | | | [phone] | | | | | | | | +--------+---------+ + + + | 03/16/ | Office | Neurology | Theresa, | | | 2018 | Visit | | SHONDA Mckinney [address] [place], | | | | | | [place] [address] | | | | | | [phone] | | | | | | | | +--------+---------+ + + + | 04/12/ | Office | Primary Care | Massimo Ramos Pedro Luis | | | 2019 | Visit | | MD Fer [address] | | | | | | [address] [place] | | | | | | [address] | | | | | | | | +--------+---------+ + + + | 10/03/ | Office | Neurology | Fabián Carias MD | | | 2019 | Visit | | [address] | | | | | | [place] | | | | | | [address] | | | | | | | [...] | | | care | | | 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 | | | | | [...] | | | care | | | 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 | | | | | [...] | | | care | | | 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 | | | | | [...] | | | care | | | 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 | | | | | [...]
--- OUTSIDE RECORDS SUMMARY | ~2019-02-17 | XMS | Encounter Summary ---
Demographics + + + | Address | [address] | | | [place] [address] | + + + | Home Phone [...] Team Providers + +------+ + | Care Marking Stitcher Name | Role | Phone | + [...] [place], [place] | | | | | [address] | [address] | | | | | [phone] | [phone] | | | | | | | [...] [place] | | | | | | [address] | | | | | | [phone] | | | | | | | | +--------+---------+ + + + | 02/26/ | Office | Urology | Lillie Fowler | | | 2019 | Visit | | [address] | | | | | | [address] | | | | | | [place], [place] | | | | | | [address] | | | | | | [phone] | | | | | | | | +--------+---------+ + + + | 03/16/ | Office | Neurology | Theresa, | | | 2018 | Visit | | [address] | | | | | | [address] [place], | | | | | | [place] [address] | | | | | | [phone] | | | | | | | | +--------+---------+ + + + | 04/12/ | Office | Primary Care | Massimo Ramos | | | 2019 | Visit | | [address] | | | | | | [place] | | | | | | [address] | | | | | | | | +--------+---------+ + + + | 10/03/ | Office | Neurology | Fabián Carias MD | | | 2019 | Visit | | [address] | | | | | | [place] | | | | | | [address] | | | | | | | [...] | | | care | | | Spanish Speaking Nanny-C | | | | | | | [...] | | | care | | | Spanish Speaking Nanny-C | | | | | | | [...] | | | care | | | Spanish Speaking Nanny-C | | | | | | | [...] | | | care | | | Spanish Speaking Nanny-C | | | | | | | [...]
--- OUTSIDE RECORDS SUMMARY | ~2019-02-17 | XMS | Encounter Summary ---
Demographics + + + | Address | [address] | | | [place] [address] | + + + | Home Phone [...] Providers + +------+ + | Care Public Area Attendant Name | Role | Phone | [...] | | | | [place], [place] | [address] | | | | | [address] | [phone] | | | | | [phone] | | | +--------+ + + + [...] [place] | | | | | | [address] | | | | | | [phone] | | | | | | | | +--------+---------+ + + + | 02/26/ | Office | Urology | Lillie Fowler | | | 2018 | Visit | | [address] | | | | | | [address] | | | | | | [place] | | | | | | [address] | | | | | | [phone] | | | | | | | | +--------+---------+ + + + | 03/16/ | Office | Neurology | Theresa, | | | 2018 | Visit | | [address] | | | | | | [address] [place], | | | | | | [place] [address] | | | | | | [phone] | | | | | | | | +--------+---------+ + + + | 04/12/ | Office | Primary Care | Massimo Ramos | | | 2019 | Visit | | MD [address] | | | | | | [address] [place] | | | | | | [address] | | | | | | | | +--------+---------+ + + + | 10/03/ | Office | Neurology | Fabián Carias MD | | | 2019 | Visit | | [address] | | | | | | [place] | | | | | | [address] | | | | | | | [...] | | | care | | | Cartography Supervisor-C | | | | | | [...] | | | care | | | Cartography Supervisor-C | | | | | | [...] | | | care | | | Cartography Supervisor-C | | | | | | [...] | | | care | | | Cartography Supervisor-C | | | | | | [...]
--- OUTSIDE RECORDS SUMMARY | ~2019-02-17 | XMS | Encounter Summary ---
Demographics + + + | Address | [address] | | | [place] [address] | + + + | Home Phone [...] Providers + +------+ + | Care Machine Riveter Name | Role | Phone | + [...] | | | 2019 | Support | [facility] | WIPING CLOTH CUTTER [address] | | | | | [facility] [address] | [place] [address] | | | | | [address] [facility], | [phone] | | | | | [place] [address] | | | | | | [phone] | | | +--------+ + + + [...] [place] | | | | | | [address] | | | | | | [phone] | | | | | | | | +--------+---------+ + + + | 02/26/ | Office | Urology | Lillie Fowler | | | 2019 | Visit | | [address] | | | | | | [address] | | | | | | [place] | | | | | | [address] | | | | | | [phone] | | | | | | | | +--------+---------+ + + + | 03/16/ | Office | Neurology | Theresa, | | | 2018 | Visit | | [address] | | | | | | [facility] [place], | | | | | | [place] [address] | | | | | | [phone] | | | | | | | | +--------+---------+ + + + | 04/12/ | Office | Primary Care | Massimo Ramos | | | 2019 | Visit | | MD [address] | | | | | | [place] | | | | | | [address] | | | | | | | | +--------+---------+ + + + | 10/03/ | Office | Neurology | Fabián Carias MD | | | 2019 | Visit | | [address] | | | | | | [place] | | | | | | [address] | | | | | | | [...] | | | care | | | Talent Consultant-C | | | | | | [...] | | | care | | | Talent Consultant-C | | | | | | [...] | | | care | | | Talent Consultant-C | | | | | | [...] | | | care | | | Talent Consultant-C | | | | | | [...]
--- OUTSIDE RECORDS SUMMARY | ~2019-02-17 | XMS | Encounter Summary ---
Demographics + + + | Address | [address] | | | [place] [address] | + + + | Home Phone [...] Providers + +------+ + | Care Private Branch Exchange Operator Name | Role | Phone | [...] | Procedures | [address] [address] | [address] | | | | | ECHO | [place], [place] | Phone: | | | | | Complete | [address] | [phone] | | | | | | Phone: | Fax: | | | | | | [phone] | [phone] | | | | | | Fax: | | | | | | | [phone] | | +--------+--------+ + + + + [...] | Procedures | [address] | [address] | | | | | ECHO | [place], [place] | Phone: | | | | | Complete | [address] | [phone] | | | | | | Phone: | Fax: | | | | | | [phone] | [phone] | | | | | | Fax: | | | | | | | [phone] | | +--------+--------+ + + + + [...] | | | | [place], [place] | [address] | | | | | [address] | | | | | | [phone] | | | +--------+ + + + [...] [place] | | | | | | [address] | | | | | | [phone] | | | | | | | | +--------+---------+ + + + | 02/26/ | Office | Urology | Lillie Fowler | | | 2018 | Visit | | [address] | | | | | | [address] | | | | | | [place], [place] | | | | | | [address] | | | | | | [phone] | | | | | | | | +--------+---------+ + + + | 03/16/ | Office | Neurology | Theresa, | | | 2018 | Visit | | [address] | | | | | | [address] [place], | | | | | | [place] [address] | | | | | | [phone] | | | | | | | | +--------+---------+ + + + | 04/12/ | Office | Primary Care | Massimo Ramos | | | 2019 | Visit | | [address] | | | | | | DR [place], [place] | | | | | | [phone] | | | | | | | | +--------+---------+ + + + | 10/03/ | Office | Neurology | Fabián Carias MD | | | 2019 | Visit | | [address] | | | | | | [place] | | | | | | [address] | | | | | | | [...] | | | care | | | Mushroom Picker-C | | | | | | [...] | | | care | | | Mushroom Picker-C | | | | | | [...] | | | care | | | Mushroom Picker-C | | | | | | [...] | | | care | | | Mushroom Picker-C | | | | | | [...]
--- OUTSIDE RECORDS SUMMARY | ~2019-02-17 | XMS | Encounter Summary ---
Demographics + + + | Address | [address] | | | [place] [address] | + + + | Home Phone [...] Team Providers + +------+ + | Care Litigation Secretary Name | Role | Phone | [...] Financial Concerns | | 2019 | | [facility] | [facility] [address] | | | | | MEDICAL CLIN[facility] [address] | [place] [address] | | | | | [address] [place], | [phone] | | | | | [place] [address] | | | | | | [phone] | | | +--------+ + + + [...] [place] | | | | | | [address] | | | | | | [phone] | | | | | | | | +--------+---------+ + + + | 02/26/ | Office | Urology | Lillie Fowler | | | 2018 | Visit | | [address] | | | | | | [address] | | | | | | [place], [place] | | | | | | [address] | | | | | | [phone] | | | | | | | | +--------+---------+ + + + | 03/16/ | Office | Neurology | Theresa, | | | 2018 | Visit | | [address] | | | | | | [address] [place], | | | | | | [place] [address] | | | | | | [phone] | | | | | | | | +--------+---------+ + + + | 04/12/ | Office | Primary Care | Richard Massimo Pedro Luis | | | 2019 | Visit | | [address] | | | | | | [place] | | | | | | [address] | | | | | | | | +--------+---------+ + + + | 10/03/ | Office | Neurology | Fabián Carias MD | | | 2019 | Visit | | [address] | | | | | | [place] | | | | | | [address] | | | | | | | [...] | | care | | | Manager Performance-C | | | | | | | [...] | | care | | | Manager Performance-C | | | | | | | [...] | | care | | | Manager Performance-C | | | | | | | [...] | | care | | | Manager Performance-C | | | | | | | [...]
--- OUTSIDE RECORDS SUMMARY | ~2019-02-17 | XMS | Encounter Summary ---
Demographics + + + | Address | [address] | | | [place] [address] | + + + | Home Phone [...] Team Providers + +------+ + | Care Divider Operator Name | Role | Phone | [...] | | [address] [place], | [address] | | | | | [place] [address] | | | | | | [phone] | | | +--------+ + + + [...] [place] | | | | | | [address] | | | | | | [phone] | | | | | | | | +--------+---------+ + + + | 02/26/ | Office | Urology | Lillie Fowler | | | 2018 | Visit | | [address] | | | | | | [address] | | | | | | [place], [place] | | | | | | [address] | | | | | | [phone] | | | | | | | | +--------+---------+ + + + | 03/16/ | Office | Neurology | Theresa, | | | 2018 | Visit | | [address] | | | | | | [address] [place], | | | | | | [place] [address] | | | | | | [phone] | | | | | | | | +--------+---------+ + + + | 04/12/ | Office | Primary Care | Massimo Ramos | | | 2019 | Visit | | [address] | | | | | | [address] [place], [place] | | | | | | [address] | | | | | | | | +--------+---------+ + + + | 10/03/ | Office | Neurology | Fabián Carias MD | | | 2019 | Visit | | [address] | | | | | | [place] | | | | | | [address] | | | | | | | [...] | | | care | | | Paint Maker-C | | | | | | [...] | | | care | | | Paint Maker-C | | | | | | [...] | | | care | | | Paint Maker-C | | | | | | [...] | | | care | | | Paint Maker-C | | | | | | [...]
--- OUTSIDE RECORDS SUMMARY | ~2019-02-17 | XMS | Encounter Summary ---
Demographics + + + | Address | [address] | | | [place] [address] | + + + | Home Phone [...] Providers + +------+ + | Care Machine Container Washer Name | Role | Phone | [...] | | | | | toenail | [address] | [address] | | | | | Procedures | Phone: | Phone: | | | | | FOOT ISSUES | [phone] | [phone] | | | | | | Fax: | Fax: | | | | | | [phone] | [phone] | +--------+ + + + + + [...] | | | [place], [place] | [address] | sole | | | | [address] | | | | | | [phone] | | | +--------+---------+ + + + [...] | : 1940 | Medical Record Number:[id number] | Author: Nessa Mathur DPM | Date [...] to his heels and apply a plastic Jesup bag over that and his socks and [...] aspirin 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, left terminal gauger current use of opiate analgesic Current use of beta marly 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 Electronically signed by: Nessa Mathur DPM 02/19/2018 at 18:07 Note: Part of this report was transcribed using voice recognition software. Every effort wa s made to ensure accuracy. However, inadvertent computerized district attorney errors may be pre sent. CC: DO [...] [place] | | | | | | [address] | | | | | | [phone] | | | | | | | | +--------+---------+ + + + | 02/26/ | Office | Urology | Lillie Fowler | | | 2019 | Visit | | [address] | | | | | | [address] | | | | | | [place], [place] | | | | | | [address] | | | | | | [phone] | | | | | | | | +--------+---------+ + + + | 03/16/ | Office | Neurology | Theresa, | | | 2018 | Visit | | [address] | | | | | | [address] [place], | | | | | | [place] [address] | | | | | | [phone] | | | | | | | | +--------+---------+ + + + | 04/12/ | Office | Primary Care | Massimo Ramoslulu | | | 2019 | Visit | | [address] | | | | | | [place] | | | | | | [address] | | | | | | | | +--------+---------+ + + + | 10/03/ | Office | Neurology | Fabián Carias MD | | | 2019 | Visit | | [address] | | | | | | [place] | | | | | | [address] | | | | | | | [...] | | care | | | Roller Picker-C | | | | | | [...] | | care | | | Roller Picker-C | | | | | | [...] | | care | | | Roller Picker-C | | | | | | [...] | | care | | | Roller Picker-C | | | | | | [...]
--- OUTSIDE RECORDS SUMMARY | ~2019-02-17 | XMS | Encounter Summary ---
Demographics + + + | Address | [address] | | | [place] [address] | + + + | Home Phone [...] Team Providers + +------+ + | Care Service Advisor Name | Role | Phone | [...] | | [facility] [address] | [facility], [place] | | | | | [address] [place], | [address] | | | | | [place] [address] | [phone] | | | | | [phone] | | | +--------+--------+ + + + [...] [place] | | | | | | [address] | | | | | | [phone] | | | | | | | | +--------+---------+ + + + | 02/26/ | Office | Urology | Lillie Fowler | | | 2018 | Visit | | [address] | | | | | | [address] | | | | | | [place], [place] | | | | | | [address] | | | | | | [phone] | | | | | | | | +--------+---------+ + + + | 03/16/ | Office | Neurology | Theresa, | | | 2018 | Visit | | [address] | | | | | | [address] [place], | | | | | | [place] [address] | | | | | | [phone] | | | | | | | | +--------+---------+ + + + | 04/12/ | Office | Primary Care | Massimo Ramos | | | 2019 | Visit | | MD [address] | | | | | | [place] | | | | | | [address] | | | | | | | | +--------+---------+ + + + | 10/03/ | Office | Neurology | Fabián Carias MD | | | 2019 | Visit | | [address] | | | | | | [place] | | | | | | [address] | | | | | | | [...] | | Chalrine Dos Santos, | | dehydration | | complex | | | Case | | | | care | | | Real Estate Processor-C | | | | | | [...] | care | | | Real Estate Processor-C | | | | | | [...] | care | | | Real Estate Processor-C | | | | | | [...] | care | | | Real Estate Processor-C | | | | | | | linical | + +--------+ +---+-----+ + + + | Note: Pt will | | check CBG's daily x1 | | Pt will take Lantis as | | prescribed | + + documented as of this encounter Visit Diagnoses Not on filedocumented in this encounter"
--- OUTSIDE RECORDS SUMMARY | ~2019-02-17 | XMS | Encounter Summary ---
Demographics + + + | Address | [address] | | | [place] [address] | + + + | Home Phone [...] Providers + +------+ + | Care Head Librarian Name | Role | Phone | [...] | | | thy | [place] | [address] | | | | | Procedures | [address] | Phone: | | | | | PET CT Skull | Phone: | [phone] | | | | | Base To Mid | [phone] | Fax: | | | | | Thigh PET | Fax: | [phone] | | | | | CT Limited | [phone] | | +--------+--------+ + + + + [...] (Primary Dx) | | | | [facility] [facility] [place], | [address] | | | | | [place] [address] | [phone] | | | | | [phone] | | | +--------+ + + + [...] [place] | | | | | | [address] | | | | | | [phone] | | | | | | | | +--------+---------+ + + + | 02/26/ | Office | Urology | Lillie Fowler | | | 2018 | Visit | | [address] | | | | | | [address] | | | | | | [place], [place] | | | | | | [address] | | | | | | [phone] | | | | | | | | +--------+---------+ + + + | 03/16/ | Office | Neurology | Theresa, | | | 2018 | Visit | | [address] | | | | | | [address] [place], | | | | | | [place] [address] | | | | | | [phone] | | | | | | | [...] [place] | | | | | | [address] | | | | | | | [...] | | | care | | | Hairspring Inspector-C | | | | | | [...] | | | care | | | Hairspring Inspector-C | | | | | | [...] | | | care | | | Hairspring Inspector-C | | | | | | [...] | | | care | | | Hairspring Inspector-C | | | | | | [...]
--- OUTSIDE RECORDS SUMMARY | ~2019-02-17 | XMS | Encounter Summary ---
Demographics + + + | Address | [address] | | | [place] [address] | + + + | Home Phone [...] Team Providers + +------+ + | Care Retreader Name | Role | Phone | + [...] [facility] | DO [address] | | | | | [facility] | [place], [place] | | | | | [address] [place], | [address] | | | | | [place] [address] | [phone] | | | | | [phone] | | | +--------+ + + + [...] [place] | | | | | | [address] | | | | | | [phone] | | | | | | | | +--------+---------+ + + + | 02/26/ | Office | Urology | Lillie Fowler | | | 2018 | Visit | | [address] | | | | | | [address] | | | | | | [place], [place] | | | | | | [address] | | | | | | [phone] | | | | | | | | +--------+---------+ + + + | 03/16/ | Office | Neurology | Theresa, | | | 2018 | Visit | | [address] | | | | | | [address] [place], | | | | | | [place] [address] | | | | | | [phone] | | | | | | | | +--------+---------+ + + + | 04/12/ | Office | Primary Care | Massmio Ramos | | | 2019 | Visit | | [address] | | | | | | [place] | | | | | | [address] | | | | | | | | +--------+---------+ + + + | 10/03/ | Office | Neurology | Fabián Carias MD | | | 2019 | Visit | | [address] | | | | | | [place] | | | | | | [address] | | | | | | | [...] | | | care | | | French Comber-C | | | | | | | [...] | | | care | | | French Comber-C | | | | | | | [...] | | | care | | | French Comber-C | | | | | | | [...] | | | care | | | French Comber-C | | | | | | | linical | + +--------+ +---+-----+ + + + | Note: Pt will | | check CBG's daily x1 | | Pt will take Lantis as | | prescribed | + + documented as of this encounter Visit Diagnoses Not on filedocumented in this encounter"
--- OUTSIDE RECORDS SUMMARY | ~2019-02-17 | XMS | Encounter Summary ---
Demographics + + + | Address | [address] | | | [place] [address] | + + + | Home Phone [...] Team Providers + +------+ + | Care Collaborative Teacher Name | Role | Phone | [...] | [facility] [address] | [place] [address] | | | | | [address] [place], | [phone] | | | | | [place] [address] | | | | | | [phone] | | | +--------+ + + + [...] [place] | | | | | | [address] | | | | | | [phone] | | | | | | | | +--------+---------+ + + + | 02/26/ | Office | Urology | Lillie Fowler | | | 2018 | Visit | | [address] | | | | | | [address] | | | | | | [place], [place] | | | | | | [address] | | | | | | [phone] | | | | | | | | +--------+---------+ + + + | 03/16/ | Office | Neurology | Theresa, | | | 2018 | Visit | | [address] | | | | | | [address] [place], | | | | | | [place] [address] | | | | | | [phone] | | | | | | | | +--------+---------+ + + + | 04/12/ | Office | Primary Care | Massimo Ramos | | | 2019 | Visit | | [address] | | | | | | [place] | | | | | | [address] | | | | | | | | +--------+---------+ + + + | 10/03/ | Office | Neurology | Fabián Carias MD | | | 2019 | Visit | | [address] | | | | | | [place] | | | | | | [address] | | | | | | | [...] | | | care | | | Mechanic Recovery-C | | | | | | | [...] | | | care | | | Mechanic Recovery-C | | | | | | | [...] | | | care | | | Mechanic Recovery-C | | | | | | | [...] | | | care | | | Mechanic Recovery-C | | | | | | | linical | + +--------+ +---+-----+ + + + | Note: Pt will | | check CBG's daily x1 | | Pt will take Lantis as | | prescribed | + + documented as of this encounter Visit Diagnoses Not on filedocumented in this encounter"
--- OUTSIDE RECORDS SUMMARY | ~2019-02-17 | XMS | Encounter Summary ---
Demographics + + + | Address | [address] | | | [place] [address] | + + + | Home Phone [...] Team Providers + +------+ + | Care Grievance Manager Name | Role | Phone | [...] | | [facility] [address] | [employer] | | | | | [address] [facility], | | | | | | [place] [address] | | | | | | [phone] | | | +--------+ + + + [...] [place] | | | | | | [address] | | | | | | [phone] | | | | | | | | +--------+---------+ + + + | 02/26/ | Office | Urology | Lillie Fowler | | | 2018 | Visit | | [address] | | | | | | [address] | | | | | | [place], [place] | | | | | | [address] | | | | | | [phone] | | | | | | | | +--------+---------+ + + + | 03/16/ | Office | Neurology | Theresa, | | | 2018 | Visit | | [address] | | | | | | [address] [place], | | | | | | [place] [address] | | | | | | [phone] | | | | | | | | +--------+---------+ + + + | 04/12/ | Office | Primary Care | Masismo Ramos | | | 2019 | Visit | | [address] | | | | | | [place] | | | | | | [address] | | | | | | | | +--------+---------+ + + + | 10/03/ | Office | Neurology | Fabián Carias MD | | | 2019 | Visit | | [address] | | | | | | [place] | | | | | | [address] | | | | | | | [...] | | care | | | Seo Executive-C | | | | | | [...] | | care | | | Seo Executive-C | | | | | | [...] | | care | | | Seo Executive-C | | | | | | [...] | | care | | | Seo Executive-C | | | | | | [...]
--- OUTSIDE RECORDS SUMMARY | ~2019-02-17 | XMS | Encounter Summary ---
Demographics + + + | Address | [address] | | | [place] [address] | + + + | Home Phone [...] Providers + +------+ + | Care Food Stylist Name | Role | Phone | [...] + + | 07/29/ | Telephone | [facility] | Ally Tian, | Hospital Follow-up | | 2019 | | [facility] | PharmD [address] | | | | [address] | [address] | | | | | [place] [address] | [place] [address] | | | | | [phone] | [phone] | | +--------+ + + + + [...] [place] | | | | | | [address] | | | | | | [phone] | | | | | | | | +--------+---------+ + + + | 02/26/ | Office | Urology | Lillie Fowler | | | 2018 | Visit | | [address] | | | | | | [address] | | | | | | [place], [place] | | | | | | [address] | | | | | | [phone] | | | | | | | | +--------+---------+ + + + | 03/16/ | Office | Neurology | Theresa, | | | 2018 | Visit | | [address] | | | | | | [address] [place], | | | | | | [place] [address] | | | | | | [phone] | | | | | | | | +--------+---------+ + + + | 04/12/ | Office | Primary Care | Massimo Ramos | | | 2019 | Visit | | [address] | | | | | | [address] [place] | | | | | | [address] | | | | | | | | +--------+---------+ + + + | 10/03/ | Office | Neurology | Fabián Carias MD | | | 2019 | Visit | | [address] | | | | | | [place] | | | | | | [address] | | | | | | | [...] | | | care | | | Party Plan Sales Consultant-C | | | | | | [...] | | | care | | | Party Plan Sales Consultant-C | | | | | | [...] | | | care | | | Party Plan Sales Consultant-C | | | | | | [...] | | | care | | | Party Plan Sales Consultant-C | | | | | | [...]
--- OUTSIDE RECORDS SUMMARY | ~2019-02-17 | XMS | Encounter Summary ---
Demographics + + + | Address | [address] | | | [place] [address] | + + + | Home Phone [...] Providers + +------+ + | Care [employer] Cook Name | Role | Phone | + [...] [id number] | | | | | [place] [address] | | | | | | [phone] | | | +--------+ + + + [...] [place] | | | | | | [address] | | | | | | [phone] | | | | | | | | +--------+---------+ + + + | 02/26/ | Office | Urology | Lillie Fowler | | | 2018 | Visit | | LILLIE Lopez [address] | | [address] | | | | | | [place], [place] | | | | | | [address] | | | | | | [phone] | | | | | | | | +--------+---------+ + + + | 03/16/ | Office | Neurology | Theresa, | | | 2018 | Visit | | SHONDA M[address]ney [address] [place], | | | | | | [place] [address] | | | | | | [phone] | | | | | | | | +--------+---------+ + + + | 04/12/ | Office | Primary Care | Massimo Ramos | | | 2019 | Visit | | MD [address] | | | | | | [place] | | | | | | [address] | | | | | | | | +--------+---------+ + + + | 10/03/ | Office | Neurology | Fabián Carias MD | | | 2019 | Visit | | [address] | | | | | | [place] | | | | | | [address] | | | | | | | [...] | | care | | | Safety Director-C | | | | | | [...] | | care | | | Safety Director-C | | | | | | [...] | | care | | | Safety Director-C | | | | | | [...] | | care | | | Safety Director-C | | | | | | [...]
--- OUTSIDE RECORDS SUMMARY | ~2019-02-17 | XMS | Encounter Summary ---
Demographics + + + | Address | [address] | | | [place] [address] | + + + | Home Phone [...] Team Providers + +------+ + | Care Forensic Investigator Name | Role | Phone | + [...] | Procedures | [place] | [address] | | | | | MRI Brain | [place], [place] | Phone: | | | | | wo Contrast | [address] | [phone] | | | | | | Phone: | Fax: | | | | | | [phone] | [phone] | | | | | | Fax: | | | | | | | [phone] | | +--------+--------+ + + + + [...] | Procedures | [place] | [address] | | | | | MRI Brain | [place], [place] | Phone: | | | | | wo Contrast | [address] | [phone] | | | | | | Phone: | Fax: | | | | | | [phone] | [phone] | | | | | | Fax: | | | | | | | [phone] | | +--------+--------+ + + + + [...] | | | | [place], [place] | [address] | | | | | [address] | | | | | | [phone] | | | +--------+ + + + [...] | | | | | | disease, jail | | | | | | | [...] | | | | | | disease, jail | | | | | | | [...] [place] | | | | | | [address] | | | | | | [phone] | | | | | | | | +--------+---------+ + + + | 02/26/ | Office | Urology | Lillie Fowler | | | 2018 | Visit | | LILLIE Lopez [address] | | | | | | [address] | | | | | | [place], [place] | | | | | | [address] | | | | | | [phone] | | | | | | | | +--------+---------+ + + + | 03/16/ | Office | Neurology | Theresa, | | | 2018 | Visit | | [address] | | | | | | [address] [place], | | | | | | [place] [address] | | | | | | [phone] | | | | | | | | +--------+---------+ + + + | 04/12/ | Office | Primary Care | Massimo Ramos | | | 2019 | Visit | | MD Fer [address] | | | | | | [place] | | | | | | [address] | | | | | | | | +--------+---------+ + + + | 10/03/ | Office | Neurology | Fabián Carias MD | | | 2019 | Visit | | [address] | | | | | | [place] | | | | | | [address] | | | | | | | [...] | | | care | | | Bed And Breakfast Operator-C | | | | | | [...] | | | care | | | Bed And Breakfast Operator-C | | | | | | [...] | | | care | | | Bed And Breakfast Operator-C | | | | | | [...] | | | care | | | Bed And Breakfast Operator-C | | | | | | [...]
--- OUTSIDE RECORDS SUMMARY | ~2019-02-17 | XMS | Encounter Summary ---
Demographics + + + | Address | [address] | | | [place] [address] | + + + | Home Phone [...] Providers + +------+ + | Care Stave And Bolt Equalizer Name | Role | Phone | + [...] [facility] | [facility] [place], [place] | | | | | [address] [place], | [address] | | | | | [place] [address] | [phone] | | | | | [phone] | | | +--------+ + + + [...] [place] | | | | | | [address] | | | | | | [phone] | | | | | | | | +--------+---------+ + + + | 02/26/ | Office | Urology | Lillie Fowler | | | 2018 | Visit | | [address]ILLIE Lopez [address] | | | | | | [address] | | | | | | [place], [place] | | | | | | [address] | | | | | | [phone] | | | | | | | | +--------+---------+ + + + | 03/16/ | Office | Neurology | Theresa, | | | 2018 | Visit | | [address] | | | | | | [address] [place], | | | | | | [place] [address] | | | | | | [phone] | | | | | | | | +--------+---------+ + + + | 04/12/ | Office | Primary Care | Massimo Ramos | | | 2019 | Visit | | MD Fer [address] | | | | | | [place] | | | | | | [address] | | | | | | | | +--------+---------+ + + + | 10/03/ | Office | Neurology | Fabián Carias MD | | | 2019 | Visit | | [address] | | | | | | [place] | | | | | | [address] | | | | | | | [...] | | care | | | Mobile Web Application Developer-C | | | | | | [...] | | care | | | Mobile Web Application Developer-C | | | | | | [...] | | care | | | Mobile Web Application Developer-C | | | | | | [...] | | care | | | Mobile Web Application Developer-C | | | | | | [...]
--- OUTSIDE RECORDS SUMMARY | ~2019-02-17 | XMS | Encounter Summary ---
Demographics + + + | Address | [address] | | | [place] [address] | + + + | Home Phone [...] Team Providers + +------+ + | Care Pelt Dropper Name | Role | Phone | + [...] | [facility] | CC CMA OR LPN | | | | | [facility] [address] | | | | | | [address] [facility] [place], | | | | | | [place] [address] | | | | | | [phone] | | | +--------+--------+ + + + [...] [place] | | | | | | [address] | | | | | | [phone] | | | | | | | | +--------+---------+ + + + | 02/26/ | Office | Urology | Lillie Fowler | | | 2018 | Visit | | [address] | | | | | | [address] | | | | | | [place] | | | | | | [address] | | | | | | [phone] | | | | | | | | +--------+---------+ + + + | 03/16/ | Office | Neurology | Theresa, | | | 2018 | Visit | | [address] | | | | | | [address] [place], | | | | | | [place] [address] | | | | | | [phone] | | | | | | | [...] [place] | | | | | | [address] | | | | | | | [...] | | care | | | Brick Siding Applicator-C | | | | | | [...] | | care | | | Brick Siding Applicator-C | | | | | | [...] | | care | | | Brick Siding Applicator-C | | | | | | [...] | | care | | | Brick Siding Applicator-C | | | | | | | linical | + +--------+ +---+-----+ + + + | Note: Pt will | | check CBG's daily x1 | | Pt will take Lantis as | | prescribed | + + documented as of this encounter Visit Diagnoses Not on filedocumented in this encounter"
--- OUTSIDE RECORDS SUMMARY | ~2019-02-17 | XMS | Encounter Summary ---
Demographics + + + | Address | [address] | | | [place] [address] | + + + | Home Phone [...] Providers + +------+ + | Care Household Refrigeration Mechanic Name | Role | Phone | [...] [place] | | | | | [address] | [address] | | | | | [phone] | | | | | | | [...] [place] | | | | | | [address] | | | | | | [phone] | | | | | | | | +--------+---------+ + + + | 02/26/ | Office | Urology | Lillie Fowler | | | 2018 | Visit | | [address] | | | | | | [address] | | | | | | [place], [place] | | | | | | [address] | | | | | | [phone] | | | | | | | | +--------+---------+ + + + | 03/16/ | Office | Neurology | Theresa, | | | 2018 | Visit | | [address] | | | | | | [address] [place], | | | | | | [place] [address] | | | | | | [phone] | | | | | | | | +--------+---------+ + + + | 04/12/ | Office | Primary Care | Massimo Ramos | | | 2019 | Visit | | MD [address] | | | | | | [place] | | | | | | [address] | | | | | | | | +--------+---------+ + + + | 10/03/ | Office | Neurology | Fabián Carias MD | | | 2019 | Visit | | [address] | | | | | | [place] | | | | | | [address] | | | | | | | [...] | | care | | | Supervisor Laundry-C | | | | | | | [...] | | care | | | Supervisor Laundry-C | | | | | | | [...] | | care | | | Supervisor Laundry-C | | | | | | | [...] | | care | | | Supervisor Laundry-C | | | | | | | [...]
--- OUTSIDE RECORDS SUMMARY | ~2019-02-17 | XMS | Encounter Summary ---
Demographics + + + | Address | [address] | | | [place] [address] | + + + | Home Phone [...] Team Providers + +------+ + | Care Rhic Systems Safety Engineer Name | Role | Phone | [...] Medication Refill | | 2019 | | [facility] | [address] | | | | | MEDICAL CLIN[facility] [address] | [facility], [place] | | | | | [address] [place], | [address] | | | | | [place] [address] | [phone] | | | | | [phone] | | | +--------+--------+ + + + [...] [place] | | | | | | [address] | | | | | | [phone] | | | | | | | | +--------+---------+ + + + | 02/26/ | Office | Urology | Lillie Fowler | | | 2018 | Visit | | [address] | | | | | | [address] | | | | | | [place], [place] | | | | | | [address] | | | | | | [phone] | | | | | | | | +--------+---------+ + + + | 03/16/ | Office | Neurology | Theresa, | | | 2018 | Visit | | [address] | | | | | | [address] [place], | | | | | | [place] [address] | | | | | | [phone] | | | | | | | | +--------+---------+ + + + | 04/12/ | Office | Primary Care | Massimo Ramos | | | 2019 | Visit | | MD Fer [address] | | | | | | [place] | | | | | | [address] | | | | | | | | +--------+---------+ + + + | 10/03/ | Office | Neurology | Fabián Carias MD | | | 2019 | Visit | | [address] | | | | | | [place] | | | | | | [address] | | | | | | | [...] | | | care | | | Spinneret Person-C | | | | | | [...] | | | care | | | Spinneret Person-C | | | | | | [...] | | | care | | | Spinneret Person-C | | | | | | [...] | | | care | | | Spinneret Person-C | | | | | | [...]
--- OUTSIDE RECORDS SUMMARY | ~2019-02-17 | XMS | Encounter Summary ---
Demographics + + + | Address | [address] | | | [place] [address] | + + + | Home Phone [...] Providers + +------+ + | Care Commercial Hvac Service Technician Name | Role | Phone [...] on | [facility] | [address] [facility] | mail ) | | | | MEDICAL CL[facility] [address] | [place], [place] | | | | | [place], | [address] | | | | | [place] [address] | [phone] | | | | | [phone] | | | +--------+ + + + [...] PSTOXYCODONE 5 MG SENT To: [facility] [place] ADDRESS: [address] [place] [address] TRACKING No: [id number] [...] [place] | | | | | | [address] | | | | | | [phone] | | | | | | | | +--------+---------+ + + + | 02/26/ | Office | Urology | Lillie Fowler | | | 2018 | Visit | | [address]IE [address] | | | | | | [address] | | | | | | [place], [place] | | | | | | [address] | | | | | | [phone] | | | | | | | | +--------+---------+ + + + | 03/16/ | Office | Neurology | Theresa, | | | 2018 | Visit | | [address] | | | | | | [address] [place], | | | | | | [place] [address] | | | | | | [phone] | | | | | | | | +--------+---------+ + + + | 04/12/ | Office | Primary Care | Massimo Ramos Pedro Luis | | | 2019 | Visit | | MD Fer [address] | | | | | | [place] | | | | | | [address] | | | | | | | | +--------+---------+ + + + | 10/03/ | Office | Neurology | Fabián Carias MD | | | 2019 | Visit | | [address] | | | | | | [place] | | | | | | [address] | | | | | | | [...] | | | care | | | Reading Instructor-C | | | | | | [...] | | | care | | | Reading Instructor-C | | | | | | [...] | | | care | | | Reading Instructor-C | | | | | | [...] | | | care | | | Reading Instructor-C | | | | | | | linical | + +--------+ +---+-----+ + + + | Note: Pt will | | check CBG's daily x1 | | Pt will take Lantis as | | prescribed | + + documented as of this encounter Visit Diagnoses Not on filedocumented in this encounter"
--- OUTSIDE RECORDS SUMMARY | ~2019-02-17 | XMS | Encounter Summary ---
Demographics + + + | Address | [address] | | | [place] [address] | + + + | Home Phone [...] Team Providers + +------+ + | Care Prompt Care Rn Name | Role | Phone | [...] | | [place] | [place] [address] | | | | | [address] | [phone] | | | | | [phone] | | | +--------+---------+ + + + [...] [place] | | | | | | [address] | | | | | | [phone] | | | | | | | | +--------+---------+ + + + | 02/26/ | Office | Urology | Lillie Fowler | | | 2018 | Visit | | [address]ILLIE Lopez [address] | | | | | | [address] | | | | | | [place], [place] | | | | | | [address] | | | | | | [phone] | | | | | | | | +--------+---------+ + + + | 03/16/ | Office | Neurology | Theresa, | | | 2018 | Visit | | [address] | | | | | | [address] [place], | | | | | | [place] [address] | | | | | | [phone] | | | | | | | | +--------+---------+ + + + | 04/12/ | Office | Primary Care | Massimo Ramos Pedro Luis | | | 2019 | Visit | | MD Fer [address] | | | | | | [place] | | | | | | [address] | | | | | | | | +--------+---------+ + + + | 10/03/ | Office | Neurology | Fabián Carias MD | | | 2019 | Visit | | [address] | | | | | | [place] | | | | | | [address] | | | | | | | [...] | | | care | | | Waterproof Coating Machine Tender-C | | | | | [...] | | | care | | | Waterproof Coating Machine Tender-C | | | | | [...] | | | care | | | Waterproof Coating Machine Tender-C | | | | | [...] | | | care | | | Waterproof Coating Machine Tender-C | | | | | [...] + + | [place] [facility] | [address] | [place] [address] | [phone] | | H[facility]ITAL [facility] | | | [...]
--- OUTSIDE RECORDS SUMMARY | ~2019-02-17 | XMS | Encounter Summary ---
Demographics + + + | Address | [address] | | | [place] [address] | + + + | Home Phone [...] Team Providers + +------+ + | Care Banquet Director Name | Role | Phone | [...] | | [place], [place] | [place] [address] | with complication, | | 2018 | | [address] | [phone] | with long-term | | | | [phone] | | current use of | | | | | Esteban Calvillo, | insulin ([facility]) | | | | | [address] | | | | | | [place] [address] | | | | | | [phone] | | | | | | | | | | | | Aria Ramos MD | | | | | | [address] [place] | | | | | | [place] [address] | | | | | | [phone] | | | | | | | [...] nonseasonal allergic rhinitis due to pollen 03/07/2017 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 This point, case management is working [...] signed by: Kamila Valdivia 12/12/2018 9:38 [facility] Time spent discharging this patient: 35 [...] Instructions Instructions Landy Blas RN - 12/12/2018 Epyf-if-Tfyj Checking Your Blood Sugar Date Last Reviewed: 08/06/201519994354-3256 [facility]. [address] [place] [address], [place] [address]. All righ ts reserved. This information is [...] can help you learn more: [place] Diabetes Wyecqvvxbiy423-622-0195yqn.[email or web address] [facility] Ajmchgajgaxqs290-617-5374cbj.[email or web address] National Eye Bohmmgebh960-794-9602 www.nei.nih.gov H[facility] [id number] www.[email or web address] Date Last Reviewed: 08/06/201519992312-5[address] [facility] [place] [address]. All righ ts reserved. This information is [...] to you, start slow and steady. Begin aywk86qqmlkrh of activity each day. Then work up [...] provider to learn more. Date Last Reviewed: 09/06/201519994711-3512 [facility]. [address] [place] [address], [place] [address]. All righ ts reserved. This information is not intended as a substitute for professional medical care. Always follow your healthcare professional's instructions. AttachmentsThe following attachments cannot be sent through Care Everywhere.Diabetes, Healt hy Meals for (Kosovan)Healthy Cooking Tips for People with Diabetes (Kosovan)Diabetes, Carbo hydrates, Fats, and Protein, Understanding (Kosovan)Diabetes, Eating Out When You Have (Engl shakeel)Insulin, Using and Injecting (Kosovan)documented in this encounter Medications at Time of [...] on 12/08/18 for hyperglycemia and was [facility] on 12/12[facility]18. Discharge Medications New Medications [...] PDT . MEDICAL HOSPITALIST TEAM PROGRESS NOTE Name:[facility] Day # 1 Reason for admission and [...] signed by: Kamila Valdivia 12/11/2018 9:57 [facility] Portions of this chart may have [...] by: Esteban Calvillo MD 12/10/2018 8:29 [facility] Portions of this chart may have been created with voice recognition software. Occasional wo rd or "sound-alike" substitutions may have occurred due to the inherent limitation of voice recognition software. Read the chart carefully and recognize, using context, where these sub stitutions have occurred. steban Calvillo MD - 12/09/2018 10:31 AM PDT MEDICAL HOSPITALIST TEAM PROGRESS NOTE Name:Geraldo Mcfadden [facility] Day # 0 Reason for admission [...] current dose Lantus with sliding scale insulin. Circuit Board Assembler consult for another round of diabetic diet [...] disposition: Likely stable for discharge [facility] the [facility] tomorrow. Subjective/ROS: Urinary incontinence for 2 [...] signed by: Kamila Valdivia 12/09/2018 10:45 [facility] Portions of this chart may have [...] from home med list . Please see [facility] [employer] med list for updated medication list. Electronically [...] Rao | | | | | | [address] | | | | | | [place] | | | | | | [address] | | | | | | [phone] | | | | | | | | +--------+---------+ + + + | 02/26/ | Office | Urology | Lillie Fowler | | | 2018 | Visit | | LILLIE Lopez [address] | | | | | | [address] | | | | | | [place] | | | | | | [address] | | | | | | [phone] | | | | | | | | +--------+---------+ + + + | 03/16/ | Office | Neurology | Theresa, | | | 2018 | Visit | | [address] | | | | | | [address] [place], | | | | | | [place] [address] | | | | | | [phone] | | | | | | | | +--------+---------+ + + + | 04/12/ | Office | Primary Care | Massimo Ramos | | | 2019 | Visit | | MD Fer [address] | | | | | | [place] | | | | | | [address] | | | | | | | | +--------+---------+ + + + | 10/03/ | Office | Neurology | Fabián Carias MD | | | 2019 | Visit | | [address] | | | | | | [place] | | | | | | [address] | | | | | | | [...] | | | care | | | Rate Clerk-C | | | | | | [...] | | | care | | | Rate Clerk-C | | | | | | [...] | | | care | | | Rate Clerk-C | | | | | | [...] | | | care | | | Rate Clerk-C | | | | | | [...] + + | [place] [facility] | [address] | [place] [address] | [phone] | | [facility]ITAL [facility] | | | [...] | [facility] | | | [...] + + | [place] [facility] | [address] | [place] [address] | [phone] | | H[facility]ITAL [facility] | | | [...] + + | [place] [facility] | [address] | [place] [address] | [phone] | | [facility]ITAL [facility] | | | [...] + + | [place] [facility] | [address] | [place] [address] | [phone] | | [facility]ITAL [facility] | | | [...] + + | [place] [facility] | [address] | [place] [address] | [phone] | | [facility]ITAL [facility] | | | [...] + + | [place] [facility] | [address] | [place] [address] | [phone] | | [facility]ITAL [facility] | | | [...] | [facility] | | | [...] + + | [place] [facility] | [address] | [place] [address] | [phone] | | [facility]ITAL [facility] | | | [...] + + | [place] [facility] | [address] | [place] [address] | [phone] | | [facility]ITAL [facility] | | | [...] + + | [place] [facility] | [address] | [place] [address] | [phone] | | [facility]ITAL [facility] | | | [...] + + | [place] [facility] | [address] | [place] [address] | [phone] | | [facility]ITAL [facility] | | | [...] + + | [place] [facility] | [address] | [place] [address] | [phone] | | [facility]ITAL [facility] | | | [...] + + | [place] [facility] | [address] | [place] [address] | [phone] | | H[facility]PITAL [facility] | | | [...] + + | [place] [facility] | [address] | [place] [address] | [phone] | | H[facility]ITAL [facility] | | | [...] + + | [place] [facility] | [address] | [place] [address] | [phone] | | [facility]ITAL [facility] | | | [...] + + | [place] [facility] | [address] | [place] [address] | [phone] | | [facility]ITAL [facility] | | | [...] + + | [place] [facility] | [address] | [place] [address] | [phone] | | [facility] | | | [...] + + | [place] [facility] | [address] | [place] [address] | [phone] | | [facility]ITAL [facility] | | | [...] + + | [place] [facility] | [address] | [place] [address] | [phone] | | [facility] | | | [...] | [facility] | | | [...] + + | [place] [facility] | [address] | [place] [address] | [phone] | | [facility] | | | [...] + + | [place] [facility] | [address] | [place] [address] | [phone] | | [facility]ITAL [facility] | | | [...] + + | [place] [facility] | [address] | [place] [address] | [phone] | | [facility]ITAL [facility] | | | [...] + + | [place] [facility] | [address] | [place] [address] | [phone] | | [facility]ITAL [facility] | | | [...] + + | [place] [facility] | [address] | [place] [address] | [phone] | | [facility] | | | [...] + + | [place] [facility] | [address] | [place] [address] | [phone] | | [facility]ITAL [facility] | | | [...] + + | [place] [facility] | [address] | [place] [address] | [phone] | | H[facility]ITAL [facility] | | | [...] + + | [place] [facility] | [address] | [place] [address] | [phone] | | [facility] | | | [...] + + | [place] [facility] | [address] | [place] [address] | [phone] | | [facility] | | | [...] + + | [place] [facility] | [address] | [place] [address] | [phone] | | [facility]ITAL [facility] | | | [...] + + | [place] [facility] | [address] | [place] [address] | [phone] | | [facility]ITAL [facility] | | | [...] 14.5 | 0.0 - 17.0 % | [facility] | | | | [...] + + | [place] [facility] | [address] | [place] [address] | [phone] | | [facility] | | | [...] | [facility] | | | [...] + + | [place] [facility] | [address] | [place] [address] | [phone] | | [facility] | | | [...] + + | [place] [facility] | [address] | [place] [address] | [phone] | | [facility]ITAL [facility] | | | [...] + + | [place] [facility] | [address] | [place] [address] | [phone] | | [facility]ITAL [facility] | | | [...] + + | [place] [facility] | [address] | [place] [address] | [phone] | | [facility] | | | [...] | [facility] | | | [facility] | These results have been | | [...] + + | [place] [facility] | [address] | [place] [address] | [phone] | | [facility]ITAL [facility] | | | [...] + + | [place] [facility] | [address] | [place] [address] | [phone] | | [facility] | | | [...] + + | [facility] [facility] | [address] | [place] [address] | [phone] | | HOSPITAL [facility] | | | [...] Work of | | | Breathing, Starting [facility] 12/10/18 at | | | 0909 [...] | | | | | | use [place] 10/325 if ordered. If | | | [...] | | | | | | | 2058-3010 Use NIGHT DOSE for | | | | | | | doses scheduled: HS, 3AM, | | | | | | | Nighttime 0083-7186 If the BG is | | | [...] | | | | | | | 1446-3240 Use NIGHT DOSE for | | | | | | | doses scheduled: HS, 3AM, | | | | | | | Nighttime 6459-4064 If the BG is | | | [...]
--- OUTSIDE RECORDS SUMMARY | ~2019-02-17 | XMS | Encounter Summary ---
Demographics + + + | Address | [address] | | | [place] [address] | + + + | Home Phone [...] Team Providers + +------+ + | Care Administrative Representative Name | Role | Phone | [...] | | | | | [address] [place], | [address] | | | | | [place] [address] | [phone] | | | | | [phone] | | | +--------+--------+ + + + [...] [place] | | | | | | [address] | | | | | | [phone] | | | | | | | | +--------+---------+ + + + | 02/26/ | Office | Urology | Lillie Fowler | | | 2018 | Visit | | LILLIE Lopez [address] | | | | | | [address] | | | | | | [place], [place] | | | | | | [address] | | | | | | [phone] | | | | | | | | +--------+---------+ + + + | 03/16/ | Office | Neurology | Theresa, | | | 2018 | Visit | | SHONDA Mck[address]ney [address] | | | | [address] [place], | | | | | | [place] [address] | | | | | | [phone] | | | | | | | | +--------+---------+ + + + | 04/12/ | Office | Primary Care | Massimo Ramos | | | 2019 | Visit | | MD Fer [address] | | | | | | [address] [place] | | | | | | [address] | | | | | | | | +--------+---------+ + + + | 10/03/ | Office | Neurology | Fabián Carias MD | | | 2019 | Visit | | [address] | | | | | | [place] | | | | | | [address] | | | | | | | [...] | | | care | | | Ingredient Specialist-C | | | | | | [...] | | | care | | | Ingredient Specialist-C | | | | | | [...] | | | care | | | Ingredient Specialist-C | | | | | | [...] | | | care | | | Ingredient Specialist-C | | | | | | [...] | unspecified | + + | 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
--- OUTSIDE RECORDS SUMMARY | ~2019-02-17 | XMS | Encounter Summary ---
Demographics + + + | Address | [address] | | | [place] [address] | + + + | Home Phone [...] Providers + +------+ + | Care Senior Commercial Loan Officer Name | Role | Phone | [...] [facility] | DO [address] | pansinusitis | | | | MED[facility] | [facility], [place] | (Primary Dx) | | | | [address] [place], | [address] | | | | | [place] [address] | [phone] | | | | | [phone] | | | +--------+---------+ + + + [...] if you feel better. Date Last Reviewed: 01/06/201619994559-7820 [employer]. [address] [place] [address], [place] [address]. All righ ts reserved. This information is [...] [place] | | | | | | [address] | | | | | | [phone] | | | | | | | | +--------+---------+ + + + | 02/26/ | Office | Urology | Lillie Fowler | | | 2018 | Visit | | LILLIE Lopez [address] | | | | | | [address] | | | | | | [place] | | | | | | [address] | | | | | | [phone] | | | | | | | | +--------+---------+ + + + | 03/16/ | Office | Neurology | Theresa, | | | 2018 | Visit | | [address] | | | | | | [address] [place], | | | | | | [place] [address] | | | | | | [phone] | | | | | | | | +--------+---------+ + + + | 04/12/ | Office | Primary Care | Massimo Ramos | | | 2019 | Visit | | MD Fer [address] | | | | | | [address] [place] | | | | | | [address] | | | | | | | | +--------+---------+ + + + | 10/03/ | Office | Neurology | Fabián Carias MD | | | 2019 | Visit | | [address] | | | | | | [place] | | | | | | [address] | | | | | | | [...] | | | care | | | Mobility Architect Manager-C | | | | | | [...] | | | care | | | Mobility Architect Manager-C | | | | | | [...] | | | care | | | Mobility Architect Manager-C | | | | | | [...] | | | care | | | Mobility Architect Manager-C | | | | | | [...]
--- OUTSIDE RECORDS SUMMARY | ~2019-02-17 | XMS | Encounter Summary ---
Demographics + + + | Address | [address] | | | [place] [address] | + + + | Home Phone [...] Team Providers + +------+ + | Care Bank Accountant Name | Role | Phone | [...] | | [place], [place] | [place] [address] | | | | | [address] | [phone] | | | | | [phone] | | | +--------+ + + + [...] [place] | | | | | | [address] | | | | | | [phone] | | | | | | | | +--------+---------+ + + + | 02/26/ | Office | Urology | Lillie Fowler | | | 2018 | Visit | | [address] | | | | | | [address] | | | | | | [place] | | | | | | [address] | | | | | | [phone] | | | | | | | | +--------+---------+ + + + | 03/16/ | Office | Neurology | Theresa, | | | 2018 | Visit | | [address] | | | | | | [address] [place], | | | | | | [place] [address] | | | | | | [phone] | | | | | | | | +--------+---------+ + + + | 04/12/ | Office | Primary Care | Massimo Ramos | | | 2019 | Visit | | MD Fer [address] | | | | | | [place] | | | | | | [address] | | | | | | | | +--------+---------+ + + + | 10/03/ | Office | Neurology | Fabián Carias MD | | | 2020 | Visit | | [address] | | | | | | [place] | | | | | | [address] | | | | | | | [...] | | | care | | | Jet Handler-C | | | | | | [...] | | | care | | | Jet Handler-C | | | | | | [...] | | | care | | | Jet Handler-C | | | | | | [...] | | | care | | | Jet Handler-C | | | | | | [...]
--- OUTSIDE RECORDS SUMMARY | ~2019-02-17 | XMS | Encounter Summary ---
Demographics + + + | Address | [address] | | | [place] [address] | + + + | Home Phone [...] Providers + +------+ + | Care Gold Nib Grinder Name | Role | Phone | + [...] | 2017 | | [facility] | [address] | | | | | MEDICAL CLINIC [address] | [facility], [place] | | | | | [address] [place], | [address] | | | | | [place] [address] | [phone] | | | | | [phone] | | | +--------+--------+ + + + [...] [place] | | | | | | [address] | | | | | | [phone] | | | | | | | | +--------+---------+ + + + | 02/26/ | Office | Urology | Lillie Fowler | | | 2018 | Visit | | [address] | | | | | | [address] | | | | | | [place], [place] | | | | | | [address] | | | | | | [phone] | | | | | | | | +--------+---------+ + + + | 03/16/ | Office | Neurology | Theresa, | | | 2018 | Visit | | [address] | | | | | | [address] [place], | | | | | | [place] [address] | | | | | | [phone] | | | | | | | | +--------+---------+ + + + | 04/12/ | Office | Primary Care | Massimo Ramos | | | 2019 | Visit | | MD Fer [address] | | | | | | [place] | | | | | | [address] | | | | | | | | +--------+---------+ + + + | 10/03/ | Office | Neurology | Fabián Carias MD | | | 2019 | Visit | | [address] | | | | | | [place] | | | | | | [address] | | | | | | | [...] | | | care | | | Rug Dry Room Attendant-C | | | | | | [...] | | | care | | | Rug Dry Room Attendant-C | | | | | | [...] | | | care | | | Rug Dry Room Attendant-C | | | | | | [...] | | | care | | | Rug Dry Room Attendant-C | | | | | | | linical | + +--------+ +---+-----+ + + + | Note: Pt will | | check CBG's daily x1 | | Pt will take Lantis as | | prescribed | + + documented as of this encounter Visit Diagnoses Not on filedocumented in this encounter"
--- OUTSIDE RECORDS SUMMARY | ~2019-02-17 | XMS | Encounter Summary ---
Demographics + + + | Address | [address] | | | [place] [address] | + + + | Home Phone [...] Providers + +------+ + | Care Senior Master Scheduler Name | Role | Phone | + [...] | Procedures | [place] | [address] | | | | | MRI Brain | [place], [place] | Phone: | | | | | wo Contrast | [address] | [phone] | | | | | | Phone: | Fax: | | | | | | [phone] | [phone] | | | | | | Fax: | | | | | | | [phone] | | +--------+--------+ + + + + [...] | Procedures | [place] | [address] | | | | | MRI Brain | [place], [place] | Phone: | | | | | wo Contrast | [address] | [phone] | | | | | | Phone: | Fax: | | | | | | [phone] | [phone] | | | | | | Fax: | | | | | | | [phone] | | +--------+--------+ + + + + [...] | | | | [place], [place] | [address] | | | | | [address] | | | | | | [phone] | | | +--------+ + + + [...] [place] | | | | | | [address] | | | | | | [phone] | | | | | | | | +--------+---------+ + + + | 02/26/ | Office | Urology | Lillie Fowler | | | 2018 | Visit | | [address] | | | | | | [address] | | | | | | [place], [place] | | | | | | [address] | | | | | | [phone] | | | | | | | | +--------+---------+ + + + | 03/16/ | Office | Neurology | Theresa, | | | 2018 | Visit | | [address] | | | | | | [address] [place], | | | | | | [place] [address] | | | | | | [phone] | | | | | | | | +--------+---------+ + + + | 04/12/ | Office | Primary Care | Massimo Ramos | | | 2019 | Visit | | MD Fer [address] | | | | | | [place] | | | | | | [address] | | | | | | | | +--------+---------+ + + + | 10/03/ | Office | Neurology | Fabián Carias MD | | | 2019 | Visit | | [address] | | | | | | [place] | | | | | | [address] | | | | | | | [...] | | | care | | | Moving Picture Producer-C | | | | | | | [...] | | | care | | | Moving Picture Producer-C | | | | | | | [...] | | | care | | | Moving Picture Producer-C | | | | | | | [...] | | | care | | | Moving Picture Producer-C | | | | | | | [...]
--- OUTSIDE RECORDS SUMMARY | ~2019-02-17 | XMS | Encounter Summary ---
Demographics + + + | Address | [address] | | | [place] [address] | + + + | Home Phone [...] Team Providers + +------+ + | Care Assurance Associate Name | Role | Phone | [...] [facility] | DO [address] | | | | | MEDICAL CLIN[facility] [address] | [facility], [place] | | | | | [address] [place], | [address] | | | | | [place] [address] | [phone] | | | | | [phone] | | | +--------+--------+ + + + [...] [place] | | | | | | [address] | | | | | | [phone] | | | | | | | | +--------+---------+ + + + | 02/26/ | Office | Urology | Lillie Fowler | | | 2018 | Visit | | [address] | | | | | | [address] | | | | | | [place], [place] | | | | | | [address] | | | | | | [phone] | | | | | | | | +--------+---------+ + + + | 03/16/ | Office | Neurology | Theresa, | | | 2018 | Visit | | [address] | | | | | | [address] [place], | | | | | | [place] [address] | | | | | | [phone] | | | | | | | | +--------+---------+ + + + | 04/12/ | Office | Primary Care | Massimo Ramos | | | 2019 | Visit | | MD Fer [address] | | | | | | [place] | | | | | | [address] | | | | | | | | +--------+---------+ + + + | 10/03/ | Office | Neurology | Fabián Carias MD | | | 2019 | Visit | | [address] | | | | | | [place] | | | | | | [address] | | | | | | | [...] | | | care | | | Court Advocate-C | | | | | | | [...] | | | care | | | Court Advocate-C | | | | | | | [...] | | | care | | | Court Advocate-C | | | | | | | [...] | | | care | | | Court Advocate-C | | | | | | | linical | + +--------+ +---+-----+ + + + | Note: Pt will | | check CBG's daily x1 | | Pt will take Lantis as | | prescribed | + + documented as of this encounter Visit Diagnoses Not on filedocumented in this encounter"
--- OUTSIDE RECORDS SUMMARY | ~2019-02-17 | XMS | Encounter Summary ---
Demographics + + + | Address | [address] | | | [place] [address] | + + + | Home Phone [...] Team Providers + +------+ + | Care Rail Signal Designer Name | Role | Phone | [...] | | | | | | [place] [address] | | | | | | [phone] | | | +--------+ + + + [...] [place] | | | | | | [address] | | | | | | [phone] | | | | | | | | +--------+---------+ + + + | 02/26/ | Office | Urology | MalcolmSergioa | | | 2018 | Visit | | [address] | | | | | | [address] | | | | | | [place], [place] | | | | | | [address] | | | | | | [phone] | | | | | | | | +--------+---------+ + + + | 03/16/ | Office | Neurology | Theresa, | | | 2018 | Visit | | [address] | | | | | | [address] [place], | | | | | | [place] [address] | | | | | | [phone] | | | | | | | [...] | | | | | | [place] | | | | | | [address] | | | | | | | [...] | | care | | | Sheet Rock Installation Helper-C | | | | | | [...] | | care | | | Sheet Rock Installation Helper-C | | | | | | [...] | | care | | | Sheet Rock Installation Helper-C | | | | | | [...] | | care | | | Sheet Rock Installation Helper-C | | | | | | [...]
--- OUTSIDE RECORDS SUMMARY | ~2019-02-17 | XMS | Encounter Summary ---
Demographics + + + | Address | [address] | | | [place] [address] | + + + | Home Phone [...] Team Providers + +------+ + | Care Meat Washer Name | Role | Phone | [...] | | [address] [place], | [address] | | | | | [place] [address] | [phone] | | | | | [phone] | | | +--------+ + + + [...] [place] | | | | | | [address] | | | | | | [phone] | | | | | | | | +--------+---------+ + + + | 02/26/ | Office | Urology | Lillie Fowler | | | 2018 | Visit | | [address] | | | | | | [address] | | | | | | [place] | | | | | | [address] | | | | | | [phone] | | | | | | | | +--------+---------+ + + + | 03/16/ | Office | Neurology | Theresa, | | | 2018 | Visit | | [address] | | | | | | [address] [place], | | | | | | [place] [address] | | | | | | [phone] | | | | | | | | +--------+---------+ + + + | 04/12/ | Office | Primary Care | Massimo Ramos | | | 2019 | Visit | | MD Fer [address] | | | | | | [place] | | | | | | [address] | | | | | | | | +--------+---------+ + + + | 10/03/ | Office | Neurology | Fabián Carias MD | | | 2019 | Visit | | [address] | | | | | | [place] | | | | | | [address] | | | | | | | [...] | | | care | | | Brickmason Contractor-C | | | | | | | [...] | | | care | | | Brickmason Contractor-C | | | | | | | [...] | | | care | | | Brickmason Contractor-C | | | | | | | [...] | | | care | | | Brickmason Contractor-C | | | | | | | linical | + +--------+ +---+-----+ + + + | Note: Pt will | | check CBG's daily x1 | | Pt will take Lantis as | | prescribed | + + documented as of this encounter Visit Diagnoses Not on filedocumented in this encounter"
--- OUTSIDE RECORDS SUMMARY | ~2019-02-17 | XMS | Encounter Summary ---
Demographics + + + | Address | [address] | | | [place] [address] | + + + | Home Phone [...] Providers + +------+ + | Care Mold Finisher Name | Role | Phone | [...] | | unspecified | [place], [place] | [address] Phone: | | | | | Procedures | [address] | [phone] | | | | | ER followup | Phone: | Fax: | | | | | | [phone] | [phone] | | | | | | Fax: | | | | | | | [phone] | | +--------+ + + + + [...] | [address] [place], [place] | [place] [address] | | | | | [address] | [phone] | | | | | [phone] | | | +--------+ + + + [...] [place] | | | | | | [address] | | | | | | [phone] | | | | | | | | +--------+---------+ + + + | 02/26/ | Office | Urology | Lillie Fowler | | | 2018 | Visit | | [address] | | | | | | [address] | | | | | | [place] | | | | | | [address] | | | | | | [phone] | | | | | | | | +--------+---------+ + + + | 03/16/ | Office | Neurology | Theresa, | | | 2018 | Visit | | [address] | | | | | | [address] [place], | | | | | | [place] [address] | | | | | | [phone] | | | | | | | | +--------+---------+ + + + | 04/12/ | Office | Primary Care | Massimo Ramos | | | 2019 | Visit | | MD Fer [address] | | | | | | [place] | | | | | | [address] | | | | | | | | +--------+---------+ + + + | 10/03/ | Office | Neurology | Fabián Carias MD | | | 2019 | Visit | | [address] | | | | | | [place] | | | | | | [address] | | | | | | | [...] | | | care | | | Truck Mechanic-C | | | | | | [...] | | | care | | | Truck Mechanic-C | | | | | | [...] | | | care | | | Truck Mechanic-C | | | | | | [...] | | | care | | | Truck Mechanic-C | | | | | | [...] J?MRN: | | | | | | [id number] | | | [id number] | | | ecent | | | [...] | | | com/t/ | | | [id number] | | | . For | | [...] | | [place] | | | Television Journalist | | | al | | | [...] | | | ent/e5 | | | [id number] | | | -[id number] | | | [...] - 1.030 | [place] | | | [place] | | | [facility] | | | [...] + + | [place] [facility] | [address] | [place] [address] | [phone] | | [facility] | | | [...] + + | [place] [facility] | [address] | [place] [address] | [phone] | | [facility] | | | [...] + + | [place] [facility] | [address] | [place] [address] | [phone] | | H[facility]ITAL [facility] | | | [...] + + | [place] [facility] | [address] | [place] [address] | [phone] | | [facility]ITAL [facility] | | | [...] | cutoff point for the diagnosis of [place] is 0.8 ng/mL for the Troponin I | | | method. | | + + + + + + + + | Performing | Address | City/State[facility] | Phone Number | | Organization | | | | + + + + + | [facility] | [address] | [place] [address] | [phone] | | [facility] | | | [...] | | HOSPITAL | | | | mL/min/1.14p0Aari than | | LABORATORY | | | [...] + + | [place] [facility] | [address] | [place] [address] | [phone] | | H[facility]ITAL [facility] | | | [...] + + | [place] [facility] | [address] | [place] [address] | [phone] | | [facility] | | | | + + + + + ECG 12 lead (05/13/2018 10:10 AM PST) + + | Specimen | + + | | + + + + + | Narrative | Performed At | + + + | Heart Rate: 60 | [facility] | | bpmQRS Interval: 108 msQT Interval: 400 msQTC Interval: 400 msP [place]: | TRACEMASTER | | 34 degQRS [place]: -28 degT Wave [place]: 19 degP-R Interval: 196 msec- | | | OTHERWISE NORMAL ECG -SINUS RHYTHM [Remains]BORDERLINE | | | INTRAVENTRICULAR CONDUCTION DELAY [Now Present]SIGNIFICANT ECG CONTOUR | | | CHANGES | | |T Wave [place]: 19 deg | | |P-R Interval: 196 [...]
--- OUTSIDE RECORDS SUMMARY | ~2019-02-17 | XMS | Encounter Summary ---
Demographics + + + | Address | [address] | | | [place] [address] | + + + | Home Phone [...] Home Visit | | 2019 | | [facility] | DO [address] | | | | | MEDICAL CL[facility] [address] | [facility] [place] | | | | | [address] [place], | [address] | | | | | [place] [address] | [phone] | | | | | [phone] | | | +--------+ + + + [...] [place] | | | | | | [address] | | | | | | [phone] | | | | | | | | +--------+---------+ + + + | 02/26/ | Office | Urology | Lillie Fowler | | | 2018 | Visit | | [address] | | | | | | [address] | | | | | | [place], [place] | | | | | | [address] | | | | | | [phone] | | | | | | | | +--------+---------+ + + + | 03/16/ | Office | Neurology | Theresa, | | | 2018 | Visit | | [address] | | | | | | [address] [place], | | | | | | [place] [address] | | | | | | [phone] | | | | | | | | +--------+---------+ + + + | 04/12/ | Office | Primary Care | Massimo Ramos | | | 2019 | Visit | | MD Fer [address] | | | | | | [place] | | | | | | [address] | | | | | | | | +--------+---------+ + + + | 10/03/ | Office | Neurology | Fabián Carias MD | | | 2019 | Visit | | [address] | | | | | | [place] | | | | | | [address] | | | | | | | [...] | | | care | | | Record Label Internship-C | | | | | | | [...] | | | care | | | Record Label Internship-C | | | | | | | [...] | | | care | | | Record Label Internship-C | | | | | | | [...] | | | care | | | Record Label Internship-C | | | | | | | [...]
--- OUTSIDE RECORDS SUMMARY | ~2019-02-17 | XMS | Encounter Summary ---
Demographics + + + | Address | [address] | | | [place] [address] | + + + | Home Phone [...] Team Providers + +------+ + | Care Overnight Cashier Name | Role | Phone | [...] + + | 07/24/ | Hospital | [facility] | Mervat Yun MD | Septic shock ([facility]); | | 2019 - | Encounter | [facility] | [address] | Acute respiratory | | | | [address] [place] | [place] | failure with hypoxia | | 07/27/ | | [place] [address] | [phone] | (FORM[facility]LY [facility]); HCAP | | 2019 | | [phone] | | (healthcare-associat | | | | | María Adhikari MD | ed pneumonia); Acute | | | | | [address] | renal failure, | | | | | [place] | unspecified acute | | | | | [id number] | renal failure type | | | | | | ([facility]); 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, with | | | | | | long-term current | | | | | | use of insulin ([facility]) | +--------+ + [...] Chronic nonseasonal allergic rhinitis due to pollen intermediate frame tender current use of aspirin 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, left intermediate frame tender current use of opiate analgesic Current use of beta marly Panlobular emphysema Atherosclerosis of chipewwa coronary artery of chipewwa heart without angina pectoris On potassium wasting [...] high density subpleural nodular foci are present cook station iorly in the lower lobes, and involve [...] back pain on oxycodone/pregabalin, two admissions to [facility] in Jul for VIKAS/pneumonia, who presented with VIKAS/acute respiratory failure with hypoxia, encepha lopathy, transferred to [facility] 07/24. Problem-Oriented Hospital Course: Septic shock likely 2/2 mulifocal pneumonia/HCAP -Presented to [facility] with encephalopathy, hypoxia, VIKAS, found to have multifo madhu pneumonia on chest x-ray -He was treated with ceftriaxone and clindamycin, given 2 L of normal saline, central line and arterial line were placed,and he was transferred to [facility] - Switched to vanc/cefepime on arrival [...] Specialty: Family Medicine Contact information: [address] [facility] [address] Discharge Medications New Medications Details amLODIPine [...] signed by: Christ West MD, 07/27/2018 11:31 [facility] documented in this encounter Discharge [...] questions answered. Wheeled out in chair by SUPERVISOR OF RESEARCH with all b elongings. Darnell Dobbins MD - 07/26/2018 11:38 AM PDTFormatting of this note might be different from the origi nal. [facility] PMG Hospitalist Progress Note Geraldo Mcfadden is a 78 y.o. male ASSESSMENT and PLAN: Active Hospital Problems Diagnosis Septic shock Acute respiratory failure with hypoxia HCAP (healthcare-associated pneumonia) ARF (acute renal failure) Panlobular emphysema Resolved Hospital Problems No resolved problems to display. Septic shock likely 2/2 mulifocal pneumonia/HCAP -Presented to [facility] with mild encephalopathy, hypoxia, found to have multifo maduh pneumonia on chest x-ray -He was treated with ceftriaxone and clindamycin, given 2 L of normal saline, central line and arterial line were placed, and he was transferred to [facility] - Switched to vanc/cefepime on arrival [...] as outlined above. Christ West 07/26/2018 11:38 [facility] Reinier Melgar Pha rmD - 07/26/2018 [...] Value Units Date/Time Respiratory pathogen panel, NAAT [[id number]] Collected: 07/25/18 0011 Order Status: Resulted Lab Status: In process Updated: 07/25/18 0029 Specimen: Tissue from Nasopharynx Culture, Blood [[id number]] Collected: 07/24/18 2310 Order Status: Completed Lab Status: Preliminary result Updated: 07/25/18 1231 Specimen: Peripheral Blood Culture No growth: Monitored continually by instrument for 5 days Culture, MRSA [[id number]] (Normal) Collected: 07/24/18 2230 Order Status: Completed Lab Status: Final result Updated: 07/26/18 0750 Specimen: Tissue from Nares Culture Negative for MRSA by chromogenic agar method Culture, Blood [[id number]] Collected: 07/24/18 2220 Order Status: Completed Lab Status: Preliminary result Updated: 07/25/18 1051 Specimen: Peripheral Blood Culture No growth: Monitored continually by instrument for 5 days Culture, Respiratory, Lower, Smear [[id number]] Order Status: Sent Lab Status: No result Specimen: Body Fluid from Sputum, Expectorated Culture, Blood [[id number]] Collected: 07/24/18 1107 Order Status: Completed Lab Status: Preliminary result Updated: 07/25/18 1121 Specimen: Peripheral Blood Culture No growth: Monitored continually by instrument for 5 days Culture, Blood [[id number]] Collected: 07/24/18 1050 Order Status: Completed Lab Status: Preliminary result Updated: 07/25/18 112 Specimen: Peripheral Blood Culture No growth: Monitored continually by instrument for 5 days Culture, MRSA [[id number]] Collected: 07/15/18 0036 Order Status: Completed Lab Status: Final result Updated: 07/17/18 0749 Specimen: Tissue from Nares Culture 1+ Staphylococcus aureus,Methicillin resistant (MRSA) Culture, Blood [[id number]] Collected: 07/14/18 1230 Order Status: Completed Lab Status: Final result Updated: 07/19/18 1321 Specimen: Peripheral Blood Culture No growth after 5 days incubation. Culture, Blood [[id number]] Collected: 07/14/18 1218 Order Status: Completed Lab [...] maintenance vancomycin 1000 mg IVPB q24h at [facility] starting 07/25 @ 120 0 2. [...] medication list or bottles X Doctor's office: [facility] AVS from 07/17/18 X Pharmacy list names: [facility] X [facility] METALLURGICAL LABORATORY ASSISTANT (Prescription Monitoring Program) X Other sources: Verbal [...] Prior to Admission Sig: Patient taking differently RADAR OPERATOR as: Insulin glargine 100 units/mL inj 18 [...] he does not have constipation Best possible RADAR OPERATOR medication list after pharmacy review: PT REPORTED [...] performed and electronically signed by Luh Beauchamp, Inside Barrel Lathe Operator 13:36 Reviewed by Celine Garcia, PharmD 07/25/2018 15:08 Christ Dobbins MD - 07/25/2018 8:[address] [facility] PMG Hospitalist Progress Note Geraldo Mcfadden is a 78 y.o. male ASSESSMENT and PLAN: Active Hospital Problems Diagnosis Septic shock Acute respiratory failure with hypoxia HCAP (healthcare-associated pneumonia) ARF (acute renal failure) Resolved Hospital Problems No resolved problems to display. Septic shock likely 2/2 mulifocal pneumonia/HCAP -Presented to [facility] with mild encephalopathy, hypoxia, found to have multifo madhu pneumonia on chest x-ray -He was treated with ceftriaxone and clindamycin, given 2 L of normal saline, central line and arterial line were placed, and he was transferred to [facility] - Switched to vanc/cefepime on arrival [...] pH, Urine 5.0 5.0 - 7.0 Specific Dixon 1.020 1.003 - 1.030 Protein, Urine 30 [...] as outlined above. Christ West 07/25/2018 8:59 [facility] aillard, Terra BourneD - 07/25/2018 3:15 [...] Value Units Date/Time Respiratory pathogen panel, NAAT [[id number]] Collected: 07/25/18 0011 Order Status: Sent Lab Status: In process Updated: 07/25/18 0029 Specimen: Tissue from Nasopharynx Culture, Blood [[id number]] Collected: 07/24/18 2310 Order Status: Sent Lab Status: In process Updated: 07/25/18 0028 Specimen: Peripheral Blood Culture, MRSA [[id number]] Collected: 07/24/182229 Order Status: Sent Lab Status: In process Updated: 07/24/182229 Specimen: Tissue from Nares Culture, Blood [[id number]] Collected: 07/24/182219 Order Status: Sent Lab Status: In process Updated: 07/24/182229 Specimen: Peripheral Blood Culture, Respiratory, Lower, Smear [[id number]] Order Status: Sent Lab Status: No result Specimen: Body Fluid from Sputum, Expectorated Culture, Blood [[id number]] Collected: 07/24/18 1107 Order Status: Completed Lab Status: Preliminary result Updated: 07/24/18 232 Specimen: Peripheral Blood Culture No growth: Monitored continually by instrument for 5 days Culture, Blood [[id number]] Collected: 07/24/18 1050 Order Status: Completed Lab Status: Preliminary result Updated: 07/24/18 232 Specimen: Peripheral Blood Culture No growth: Monitored continually by instrument for 5 days Culture, MRSA [[id number]] Collected: 07/15/18 0036 Order Status: Completed Lab Status: Final result Updated: 07/17/18 0749 Specimen: Tissue from Nares Culture 1+ Staphylococcus aureus,Methicillin resistant (MRSA) Culture, Blood [[id number]] Collected: 07/14/18 1230 Order Status: Completed Lab Status: Final result Updated: 07/19/18 1321 Specimen: Peripheral Blood Culture No growth after 5 days incubation. Culture, Blood [[id number]] Collected: 07/14/18 1218 Order Status: Completed Lab [...] maintenance vancomycin 1000 mg IVPB q24h at [facility] starting 07/25 @ 120 0 2. [...] [place] | | | | | | [address] | | | | | | [phone] | | | | | | | | +--------+---------+ + + + | 02/26/ | Office | Urology | Lillie Fowlre | | | 2019 | Visit | | LILLIE Lopez [address] | | | | | | [address] | | | | | | [place] | | | | | | [address] | | | | | | [phone] | | | | | | | | +--------+---------+ + + + | 03/16/ | Office | Neurology | Theresa, | | | 2018 | Visit | | SHONDA Mckinney [address] | | [address] [place], | | | | | | [place] [address] | | | | | | [phone] | | | | | | | | +--------+---------+ + + + | 04/12/ | Office | Primary Care | Massimo Ramos | | | 2019 | Visit | | MD Fer [address] | | | | | | [address] [place] | | | | | | [address] | | | | | | | [...] | | | care | | | Urologist Physician-C | | | | | | [...] | | | care | | | Urologist Physician-C | | | | | | [...] | | | care | | | Urologist Physician-C | | | | | | [...] | | | care | | | Urologist Physician-C | | | | | | [...] [address] | [place] | [phone] | | [facility] | | [address] | | | - LABORATORY | | [...] [address] | [place] | [phone] | | [facility] | | [address] | | | - LABORATORY | | [...] 20 | 9 - 23 mg/dL | [facility] | | | | | | [facility] | | | | | | [facility] | | | | | | CENTER - | | | | | | LABORATORY | | + + + + + + | Creatinine | 1.02 | 0.70 - 1.30 | [facility] | | | | | mg/dL | [facility] | | | [facility] | | [facility]ICAL | | | | | | CENTER - | | | | | | LABORATORY | | + + + + + + | eGFR if not | >60Comment: GLOMERULAR | >=60 | [facility] | | | | FILTRATION | mL/min/1.73m2 | [facility] | | | SWISS | RATE,ESTIMATED | | MEDICAL | | | | mL/min/1.78t3Pwwq than | | CENTER - | | [...] + | [facility] | [address] | [place] | [phone] | | [facility] | | [address] | | | - LABORATORY | | [...] | Monocytes | | K/uL | [facility] | | | | | | MEDICAL [...] [address] | [place] | [phone] | | [facility] | | [address] | | | - LABORATORY | | [...] [address] | [place] | [phone] | | [facility] | | [address] | | | - LABORATORY | | [...] + | [facility] | [address] | [place] | [phone] | | [facility] | | [address] | | | - LABORATORY | | [...] | | POC | | | [facility] | | | | | | [...] ST. | [address] | [place], [place] | [phone] | | [facility] | | [address] | | | - LABORATORY | | [...] | | POC | | | [facility] | | [...] [address] | [place] | [phone] | | [facility] | | [address] | | | - LABORATORY | | [...] [address] | [place] | [phone] | | [facility] | | [address] | | | - LABORATORY | | [...] | | | FILTRATION | mL/min/1.73m2 | [facility] | | | SWISS | RATE,ESTIMATED | | MEDICAL | | | | mL/min/1.95d3Faji than | | CENTER - | | [...] ST. | [address] | [place], [place] | [phone] | | [facility] | | [address] | | | - LABORATORY | | [...] + | [facility] | [address] | [place] | [phone] | | [facility] | | [address] | | | - LABORATORY | | [...] ST. | [address] | [place], [place] | [phone] | | [facility] | | [address] | | | - LABORATORY | | [...] [address] | [place] | [phone] | | [facility] | | [address] | | | - LABORATORY | | [...] [address] | [place] | [phone] | | [facility] | | [address] | | | - LABORATORY | | [...] + | [facility] | [address] | [place] | [phone] | | [facility] | | [address] | | | - LABORATORY | | [...] + | [facility] | [address] | [place] | [phone] | | [facility] | | [address] | | | - LABORATORY | | [...] 1.47 (H) | 0.70 - 1.30 | [facility] | | | | | [...] mL/min/1.73m2 | [facility] | | | SWISS | RATE,ESTIMATED | | MEDICAL | | | | mL/min/1.32y4Wpkn than | | CENTER - | | [...] [address] | [place] | [phone] | | [facility] | | [address] | | | - LABORATORY | | [...] [address] | [place] | [phone] | | [facility] | | [address] | | | - LABORATORY | | [...] | | | PCR | | | [facility] | | | | | [...] [address] | [place] | [phone] | | [facility] | | [address] | | | - LABORATORY | | [...] ST. | [address] | [place], [place] | [phone] | | [facility] | | [address] | | | - LABORATORY | | [...] [address] | [place] | [phone] | | [facility] | | [address] | | | - LABORATORY | | [...] [address] | [place] | [phone] | | [facility] | | [address] | | | - LABORATORY | | [...] [address] | [place] | [phone] | | [facility] | | [address] | | | - LABORATORY | | [...] + | [facility] | [address] | [place] | [phone] | | [facility] | | [address] | | | - LABORATORY | | [...] [address] | [place] | [phone] | | [facility] | | [address] | | | - LABORATORY | | [...] [address] | [place] | [phone] | | [facility] | | [address] | | | - LABORATORY | | [...] [address] | [place] | [phone] | | [facility] | | [address] | | | - LABORATORY | | [...] ST. | [address] | [place] | [phone] | | [facility] | | [address] | | | - LABORATORY | | [...] 2.00 (H) | 0.70 - 1.30 | [facility] | | | | | mg/dL | [facility] | | | | | | MEDICAL | | | | | | CENTER - | | | | | | LABORATORY | | + + + + + + | eGFR if not | 32 (L)Comment: | >=60 | [facility] | | | | GLOMERULAR FILTRATION | mL/min/1.73m2 | [facility] | | | SWISS | RATE,ESTIMATED | | MEDICAL | | | | mL/min/1.90u0Ccen than | | CENTER - | | [...] [address] | [place] | [phone] | | [facility] | | [address] | | | - LABORATORY | | [...] | | | | | NPO, Daytime 2031-2809 Use NIGHT | | | | | | | DOSE for doses scheduled: | | | | | | | HS, 3AM, Nighttime 2046-5874 If | | | | | | [...]
--- OUTSIDE RECORDS SUMMARY | ~2019-02-17 | XMS | Encounter Summary ---
Demographics + + + | Address | [address] | | | [place] [address] | + + + | Home Phone [...] Team Providers + +------+ + | Care Breakdown Man Name | Role | Phone | [...] | | | | [place], [place] | [address] | | | | | [address] | [phone] | | | | | [phone] | | | +--------+ + + + [...] [place] | | | | | | [address] | | | | | | [phone] | | | | | | | | +--------+---------+ + + + | 02/26/ | Office | Urology | Sergio Fowlera | | | 2018 | Visit | | LILLIE Lopez [address] | | | | | | [address] | | | | | | [place] | | | | | | [address] | | | | | | [phone] | | | | | | | | +--------+---------+ + + + | 03/16/ | Office | Neurology | Theresa, | | | 2018 | Visit | | SHONDA Mckinney [address] | | [address] [place], | | | | | | [place] [address] | | | | | | [phone] | | | | | | | | +--------+---------+ + + + | 04/12/ | Office | Primary Care | Massimo Ramos | | | 2019 | Visit | | MD Fer [address] | | | | | | [place] | | | | | | [address] | | | | | | | | +--------+---------+ + + + | 10/03/ | Office | Neurology | Fabián Carias MD | | | 2019 | Visit | | [address] | | | | | | [place] | | | | | | [address] | | | | | | | [...] | | care | | | Supervisor Backfilling-C | | | | | | | [...] | | care | | | Supervisor Backfilling-C | | | | | | | [...] | | care | | | Supervisor Backfilling-C | | | | | | | [...] | | care | | | Supervisor Backfilling-C | | | | | | | [...] microvascular | | | disease. JOB #: [id number] Digitally Released by: Drew Lawrence | | [...] | | | | | JOB #: [id number] | | Digitally Released by: Drew Lawrence | | | | | | Read By: DREW LAWRENCE MD | | Date: 11/08/2016 13:33 | | | + + documented in this encounter Visit Diagnoses Not on filedocumented in this encounter"
--- OUTSIDE RECORDS SUMMARY | ~2019-02-17 | XMS | Encounter Summary ---
Demographics + + + | Address | [address] | | | [place] [address] | + + + | Home Phone [...] Providers + +------+ + | Care Ict Systems Test Engineer Name | Role | Phone [...] Results | | 2017 | | [facility] | DO [address] | | | | | [facility] | [facility], [place] | | | | | [address] [place], | [address] | | | | | [place] [address] | [phone] | | | | | [phone] | | | +--------+ + + + [...] [place] | | | | | | [address] | | | | | | [phone] | | | | | | | | +--------+---------+ + + + | 02/26/ | Office | Urology | Lillie Fowler | | | 2018 | Visit | | [address]ILL[place] [address] | | | | | | [address] | | | | | | [place], [place] | | | | | | [address] | | | | | | [phone] | | | | | | | | +--------+---------+ + + + | 03/16/ | Office | Neurology | Theresa, | | | 2018 | Visit | | SHONDA Mck[address]ney [address] [place], | | | | | | [place] [address] | | | | | | [phone] | | | | | | | | +--------+---------+ + + + | 04/12/ | Office | Primary Care | Massimo Ramos | | | 2019 | Visit | | MD Fer [address] | | | | | | [place] | | | | | | [address] | | | | | | | | +--------+---------+ + + + | 10/03/ | Office | Neurology | Fabián Carias MD | | | 2020 | Visit | | [address] | | | | | | [place] | | | | | | [address] | | | | | | | [...] | | | care | | | Trim Sawyer-C | | | | | | | [...] | | | care | | | Trim Sawyer-C | | | | | | | [...] | | | care | | | Trim Sawyer-C | | | | | | | [...] | | | care | | | Trim Sawyer-C | | | | | | | linical | + +--------+ +---+-----+ + + + | Note: Pt will | | check CBG's daily x1 | | Pt will take Lantis as | | prescribed | + + documented as of this encounter Visit Diagnoses Not on filedocumented in this encounter"
--- OUTSIDE RECORDS SUMMARY | ~2019-02-17 | XMS | Encounter Summary ---
Demographics + + + | Address | [address] | | | [place] [address] | + + + | Home Phone [...] Team Providers + +------+ + | Care College Admissions Counselor Name | Role | Phone | [...] | | [address] [place] | [facility] | frequently; TIA | | 11/04/ | | [place] | [place] [address] | (transient ischemic | | 2019 | | [address] | [phone] | attack) | | | | [phone] | | | | | | | Jalyn Carias MD | | | | | | [address] | | | | | | [place] | | | | | | [address] | | | | | | | [...] PM PDT Physician Discharge Summary Patient ID: Gearldo Mcfadden [id number] 78 y.o. 1940 Admit date: 11/02/2018 Discharge date and time: 11/04/2018 13:05 Admitting Physician: Jalyn Carias MD Discharge Physician: Jalyn Carias M.D. Admission Diagnoses: Falls frequently [R29.6] Generalized weakness [R53.1] Discharge Diagnoses: Status post CVA, right parietal lobe, right MCA, thrombotic, nondominant hemisphere, [facility], presenting with recurrent falls with gait [...] and oriented to time, place, and person. [facility] able to repeat, [...] made to ensure accuracy. However, inadvertent computerize stripper opaquer errors may be present documented in this [...] of this encounter Progress Notes Scott Caballero, Quality Control Representative - 11/04/2018 11:11 AM PDT PHARMACY SERVICES: [...] this time. Electronically signed by: Scott Caballero, Quality Control Representative 11/04/2018 11:11Electronically sig tavares by Vivek Juares, PharmD at 11/04/2018 1:02 PM PDTLim, Jalyn Panda MD - 11/04/2018 10: 16 AM PDT Patient: Geraldo Mcfadden : 1940: Age: 78 y.o. MedRec: [id number] PCP: Horacio Silvestre DO Admission date: 11/02/2018 [...] will require outpatient PT OT with w [facility] outpatient. He was given medical education [...] and oriented to time, place, and person. [facility] flu[facility]. able to repeat, [...] CEREBELLAR EXAMINATION: There is no dysmetria on pjsxlj-dr-cznh test. MISCELLANEOUS EXAM: Well kept, well nourished, [...] I advised to call for possible t heavy lift rigger point injections Estimated date of Discharge: November 04, 2018 Time spent on counseling/coordination of care: 45 Minutes Total time spent with patient: 30 Minutes Jalyn Carias M.D. Electronically signed NOTE: Part of this report was transcribed using voice recognition software. Every effort was made to ensure accuracy. However, inadvertent computerize stripper opaquer errors may be present Jas Cohen RRT [...] slept peacefully until he was awoken. 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 Ed says his grandson with [employer] lives with him and his and helps him around the h ouse and with his meds. 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 Ed's neuro assessments [...] to go back home today. Scott Mendes, Quality Control Representative - 11/02/2018 3:50 PM PDTFormatting of this [...] performed and electronically signed by Scott Caballero, Quality Control Representative 15:50 documented in this encounter Plan of [...] [place] | | | | | | [address] | | | | | | [phone] | | | | | | | | +--------+---------+ + + + | 02/26/ | Office | Urology | Lillie Fowler | | | 2018 | Visit | | LILLIE Lopez [address] | | | | | | [address] | | | | | | [place] | | | | | | [address] | | | | | | [phone] | | | | | | | | +--------+---------+ + + + | 03/16/ | Office | Neurology | Theresa, | | | 2018 | Visit | | [address] | | | | | | [address] [place], | | | | | | [place] [address] | | | | | | [phone] | | | | | | | | +--------+---------+ + + + | 04/12/ | Office | Primary Care | Massimo Ramos | | | 2019 | Visit | | MD Fer [address] | | | | | | [place] | | | | | | [address] | | | | | | | | +--------+---------+ + + + | 10/03/ | Office | Neurology | Jalyn Carias MD | | | 2019 | Visit | | [address] | | | | | | [place] | | | | | | [address] | | | | | | | [...] | | | care | | | Embedded Nurse-C | | | | | | [...] | | | care | | | Embedded Nurse-C | | | | | | [...] | | | care | | | Embedded Nurse-C | | | | | | [...] | | | care | | | Embedded Nurse-C | | | | | | [...] + + | [facility] | [address] | [place] [address] | [phone] | | [facility] | | | [...] + + | [facility] | [address] | [place] [address] | [phone] | | [facility] | | | [...] + + | [facility] | [address] | [place] [address] | [phone] | | [facility]ITAL [facility] | | | [...] + + | [facility] | [address] | [place] [address] | [phone] | | [facility]ITAL [facility] | | | [...] + + | [facility] | [address] | [place] [address] | [phone] | | [facility]ITAL [facility] | | | [...] + + | [facility] | [address] | [place] [address] | [phone] | | [facility]PITAL [facility] | | | [...] + + | [facility] | [address] | [place] [address] | [phone] | | [facility]ITAL [facility] | | | [...] + + | [facility] | [address] | [place] [address] | [phone] | | [facility] | | | [...] + + | [facility] | [address] | [place] [address] | [phone] | | [facility]ITAL [facility] | | | [...] | mL/min/1.73m2 | [facility] | | | SLOVENIAN | RATE,ESTIMATED | | HOSPITAL | | | | mL/min/1.86b9Dnag than | | LABORATORY | | | [...] + + + + + + | Albumin/Ilzbeth | 0.5 (L) | 0.8 - 2.0 [...] + + | [facility] | [address] | [place] [address] | [phone] | | [facility]PITAL [facility] | | | [...] + + | [facility] | [address] | [place] [address] | [phone] | | [facility] | | | [...] + + | [facility] | [address] | [place] [address] | [phone] | | [facility]ITAL [facility] | | | [...] + + | [facility] | [address] | [place] [address] | [phone] | | [facility]ITAL [facility] | | | [...] + + | [facility] | [address] | [place] [address] | [phone] | | [facility] | | | [...] + + | [facility] | [address] | [place] [address] | [phone] | | [facility]ITAL [facility] | | | [...] | [facility] | | | | mg/dL [id number] - | | HOSPITAL | | | | 129 mg/dL Near | | LABORATORY | | | | Srasfsc757 - 159 mg/dL | | | | | | Ovaelqbaiz437 - 189 | | | | | [...] + + | [facility] | [address] | [place] [address] | [phone] | | [facility] | | | [...] + + | [facility] | [address] | [place] [address] | [phone] | | [facility] | | | [...] - 1.030 | [facility] | | | Brady | | | [facility] | | | [...] + + | [facility] | [address] | [place] [address] | [phone] | | [facility]OSPITAL [facility] | | | [...] + + | [facility] | [address] | [place] [address] | [phone] | | H[facility]ITAL [facility] | | | [...] + + | [facility] | [address] | [place] [address] | [phone] | | H[facility]PITAL [facility] | | | [...] + + | [facility] | [address] | [place] [address] | [phone] | | H[facility]ITAL [facility] | | | [...] + + | [facility] | [address] | [place] [address] | [phone] | | [facility]ITAL [facility] | | | [...] + + | [facility] | [address] | [place] [address] | [phone] | | [facility]ITAL [facility] | | | [...] | mL/min/1.73m2 | [facility] | | | SLOVENIAN | RATE,ESTIMATED | | HOSPITAL | | | | mL/min/1.17a9Cees than | | LABORATORY | | | [...] + + | [facility] | [address] | [place] [address] | [phone] | | HOSPITAL [facility] | | | | + + + + + ECG 12 lead (11/02/2018 1:16 PM PDT) + + | Specimen | + + | | + + + + + | Narrative | Performed At | + + + | Heart Rate: 85 | [facility] | | bpmQRS Interval: 100 msQT Interval: 364 msQTC Interval: 433 msP Donnelly: | TRACEMASTER | | 20 degQRS Donnelly: -22 degT Wave Donnelly: 19 degP-R Interval: 184 msec- | | | OTHERWISE NORMAL ECG -SINUS RHYTHM [Remains]BORDERLINE LEFT AXIS | | | DEVIATION [Remains]NO SIGNIFICANT CHANGE | | |QRS Donnelly: -22 deg | | |T Wave Donnelly: 19 deg | | |P-R Interval: 184 [...] | | | | AC, NPO, Daytime 6368-2393 Use | | | | | | | NIGHT DOSE for doses scheduled: | | | | | | | HS, 3AM, Nighttime 7277-3982 | | | | | | | [...]
--- OUTSIDE RECORDS SUMMARY | ~2019-02-17 | XMS | Encounter Summary ---
Demographics + + + | Address | [address] | | | [place] [address] | + + + | Home Phone [...] Team Providers + +------+ + | Care Lean Engineer Name | Role | Phone | [...] Other | | 2018 | | [facility] | DO [address] [place] | | | | | [facility] | [facility], [place] | | | | | [address] [place], | [address] | | | | | [place] [address] | [phone] | | | | | [phone] | | | +--------+ + + + [...] [place] | | | | | | [address] | | | | | | [phone] | | | | | | | | +--------+---------+ + + + | 02/26/ | Office | Urology | Lillie Fowler | | | 2018 | Visit | | [address]ILLIE Lopez [address] | | | | | | [address] | | | | | | [place] | | | | | | [address] | | | | | | [phone] | | | | | | | | +--------+---------+ + + + | 03/16/ | Office | Neurology | Theresa, | | | 2018 | Visit | | [address] | | | | | [address] [place], | | | | | | [place] [address] | | | | | | [phone] | | | | | | | | +--------+---------+ + + + | 04/12/ | Office | Primary Care | Massimo Ramos | | | 2019 | Visit | | MD Fer [address] | | | | | | [place] | | | | | | [address] | | | | | | | | +--------+---------+ + + + | 10/03/ | Office | Neurology | Fabián Carias MD | | | 2020 | Visit | | [address] | | | | | | [place] | | | | | | [address] | | | | | | | [...] | | care | | | Chief Lifestyle Officer-C | | | | | | [...] | | care | | | Chief Lifestyle Officer-C | | | | | | [...] | | care | | | Chief Lifestyle Officer-C | | | | | | [...] | | care | | | Chief Lifestyle Officer-C | | | | | | | linical | + +--------+ +---+-----+ + + + | Note: Pt will | | check CBG's daily x1 | | Pt will take Lantis as | | prescribed | + + documented as of this encounter Visit Diagnoses Not on filedocumented in this encounter"
--- OUTSIDE RECORDS SUMMARY | ~2019-02-17 | XMS | Encounter Summary ---
Demographics + + + | Address | [address] | | | [place] [address] | + + + | Home Phone [...] Team Providers + +------+ + | Care Wait Staff Name | Role | Phone | + [...] | | | | [place], [place] | [address] | | | | | [address] | [phone] | | | | | [phone] | | | +--------+ + + + [...] [place] | | | | | | [address] | | | | | | [phone] | | | | | | | | +--------+---------+ + + + | 02/26/ | Office | Urology | Lillie Fowler | | | 2018 | Visit | | LILLIE Lopez [address] | | | | | | [address] | | | | | | [place] | | | | | | [address] | | | | | | [phone] | | | | | | | | +--------+---------+ + + + | 03/16/ | Office | Neurology | Theresa, | | | 2018 | Visit | | [address] | | | | | | [address] [place], | | | | | | [place] [address] | | | | | | [phone] | | | | | | | | +--------+---------+ + + + | 04/12/ | Office | Primary Care | Massimo Ramos | | | 2019 | Visit | | MD Fer [address] | | | | | | [place] | | | | | | [address] | | | | | | | | +--------+---------+ + + + | 10/03/ | Office | Neurology | Fabián Carias MD | | | 2019 | Visit | | [address] | | | | | | [place] | | | | | | [address] | | | | | | | [...] | | care | | | Wool Shearer-C | | | | | | | [...] | | care | | | Wool Shearer-C | | | | | | | [...] | | care | | | Wool Shearer-C | | | | | | | [...] | | care | | | Wool Shearer-C | | | | | | | [...]
--- OUTSIDE RECORDS SUMMARY | ~2019-02-17 | XMS | Encounter Summary ---
Demographics + + + | Address | [address] | | | [place] [address] | + + + | Home Phone [...] Team Providers + +------+ + | Care Front Desk Admin Name | Role | Phone | + [...] | [address] [place] | [place] [address] | | | | | [address] | [phone] | | | | | [phone] | | | +--------+ + + + [...] Instructions Luciano Diana MD - 07/05/2018Get some qstk-gsw-fdjtbuw Imodium and take 1 tablet after each [...] be sent through Care Everywhere.Colitis, Unders maniding (Italian)documented in this encounter Medications at Time [...] | | | | | | disease, assisted | | | | | | | [...] [place] | | | | | | [address] | | | | | | [phone] | | | | | | | | +--------+---------+ + + + | 02/26/ | Office | Urology | Lillie Fowler | | | 2018 | Visit | | [address]ILLIE Lopez [address] | | | | | | [address] | | | | | | [place] | | | | | | [address] | | | | | | [phone] | | | | | | | | +--------+---------+ + + + | 03/16/ | Office | Neurology | Theresa, | | | 2018 | Visit | | [address] | | | | | | [address] [place], | | | | | | [place] [address] | | | | | | [phone] | | | | | | | | +--------+---------+ + + + | 04/12/ | Office | Primary Care | Massimo Ramos | | | 2019 | Visit | | MD Fer [address] | | | | | | [place] | | | | | | [address] | | | | | | | | +--------+---------+ + + + | 10/03/ | Office | Neurology | Fabián Carias MD | | | 2019 | Visit | | [address] | | | | | | [place] | | | | | | [address] | | | | | | | [...] | | | care | | | C D Reactor Operator-C | | | | | | [...] | | | care | | | C D Reactor Operator-C | | | | | | [...] | | | care | | | C D Reactor Operator-C | | | | | | [...] | | | care | | | C D Reactor Operator-C | | | | | | [...] J?MRN: | | | | | | [id number] | | | [id number] | | | riteri | | | [...] | | | [place] | | | Anesthesiology Physician | | | al | | [...] | | | [place] | | | Anesthesiology Physician | | | al | | [...] | | | ent/e5 | | | [id number] | | | -eb93- | | | [...] J?MRN: | | | | | | [id number] | | | [id number] | | | riteri | | | [...] | | | [place] | | | Anesthesiology Physician | | | al | | [...] | | | [place] | | | Anesthesiology Physician | | | al | | [...] | | | ent/e5 | | | [id number] | | | -eb93- | | | [...] - 1.030 | [place] | | | [place] | | | [facility] | | | [...] + + | [facility] | [address] | [place] [address] | [phone] | | [facility] | | | [...] + + | [facility] | [address] | [place] [address] | [phone] | | H[facility]PITAL [facility] | | | [...] | | HOSPITAL | | | | mL/min/1.01v7Ikfq than | | LABORATORY | | | [...] + + | [facility] | [address] | [place] [address] | [phone] | | HOSPITAL [facility] | | | [...] + + | [facility] | [address] | [place] [address] | [phone] | | HOSPITAL [facility] | | | [...]
--- OUTSIDE RECORDS SUMMARY | ~2019-02-17 | XMS | Encounter Summary ---
Demographics + + + | Address | [address] | | | [place] [address] | + + + | Home Phone [...] Providers + +------+ + | Care White Lead Grinder Name | Role | Phone | [...] | | | [facility] | Monitoring Manager-Clinical | | | | | [address] [facility] [place], | | | | | | [place] [address] | | | | | | [phone] | | | +--------+ + + + [...] [place] | | | | | | [address] | | | | | | [phone] | | | | | | | | +--------+---------+ + + + | 02/26/ | Office | Urology | Lillie Fowler | | | 2018 | Visit | | [address]ILLIE Lopez [address] | | | | | | [address] | | | | | | [place], [place] | | | | | | [address] | | | | | | [phone] | | | | | | | | +--------+---------+ + + + | 03/16/ | Office | Neurology | Theresa, | | | 2018 | Visit | | [address] | | | | | | [address] [place], | | | | | | [place] [address] | | | | | | [phone] | | | | | | | | +--------+---------+ + + + | 04/12/ | Office | Primary Care | Massimo Ramos | | | 2019 | Visit | | MD Fer [address] | | | | | | [place] | | | | | | [address] | | | | | | | | +--------+---------+ + + + | 10/03/ | Office | Neurology | Fabián Carias MD | | | 2019 | Visit | | [address] | | | | | | [place] | | | | | | [address] | | | | | | | [...] | | care | | | Monitoring Manager-C | | | | | | [...] | | care | | | Monitoring Manager-C | | | | | | [...] | | care | | | Monitoring Manager-C | | | | | | [...] | | care | | | Monitoring Manager-C | | | | | | [...]
--- OUTSIDE RECORDS SUMMARY | ~2019-02-17 | XMS | Encounter Summary ---
Demographics + + + | Address | [address] | | | [place] [address] | + + + | Home Phone [...] Team Providers + +------+ + | Care Cattyman Name | Role | Phone | + [...] | | | [facility] | Contracts Intern-Clinical | | | | | [facility] [place], | | | | | | [place] [address] | | | | | | [phone] | | | +--------+ + + + [...] [place] | | | | | | [address] | | | | | | [phone] | | | | | | | | +--------+---------+ + + + | 02/26/ | Office | Urology | Lillie Fowler | | | 2018 | Visit | | LILLIE Lopez [address] | | | | | | [address] | | | | | | [place], [place] | | | | | | [address] | | | | | | [phone] | | | | | | | | +--------+---------+ + + + | 03/16/ | Office | Neurology | Theresa, | | | 2018 | Visit | | [address] | | | | | | [address] [place], | | | | | | [place] [address] | | | | | | [phone] | | | | | | | | +--------+---------+ + + + | 04/12/ | Office | Primary Care | Massimo Ramos | | | 2019 | Visit | | MD Fer [address] | | | | | | [place] | | | | | | [address] | | | | | | | | +--------+---------+ + + + | 10/03/ | Office | Neurology | Fabián Carias MD | | | 2019 | Visit | | [address] | | | | | | [place] | | | | | | [address] | | | | | | | [...] | | | care | | | Contracts Intern-C | | | | | | | [...] | | | care | | | Contracts Intern-C | | | | | | | [...] | | | care | | | Contracts Intern-C | | | | | | | [...] | | | care | | | Contracts Intern-C | | | | | | | [...]
--- OUTSIDE RECORDS SUMMARY | ~2019-02-17 | XMS | Encounter Summary ---
Demographics + + + | Address | [address] | | | [place] [address] | + + + | Home Phone [...] Team Providers + +------+ + | Care Raimann 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 Name | Role | Phone [...] [facility] [facility] | Scott De Oliveira | Encounter for | | 2019 | Visit | [facility] | Jalen, [address] | screening | | | | SURGERY [address] | colonoscopy (Primary | | | | DR [address]ERT [place], | [facility], [place] | Dx) | | | | [place] [address] | [address] | | | | | [phone] | [phone] | | | | | | | [...] [place] | | | | | | [address] | | | | | | [phone] | | | | | | | | +--------+---------+ + + + | 02/26/ | Office | Urology | Lillie Fowler | | | 2018 | Visit | | [address]IE Lopez [address] | | | | | | [address] | | | | | | [place], [place] | | | | | | [address] | | | | | | [phone] | | | | | | | | +--------+---------+ + + + | 03/16/ | Office | Neurology | Theresa, | | | 2018 | Visit | | [address] | | | | | | [address] [place], | | | | | | [place] [address] | | | | | | [phone] | | | | | | | | +--------+---------+ + + + | 04/12/ | Office | Primary Care | Massimo Ramos | | | 2019 | Visit | | MD Fer [address] | | | | | | [place] | | | | | | [address] | | | | | | | | +--------+---------+ + + + | 10/03/ | Office | Neurology | Fabián Carias MD | | | 2019 | Visit | | [address] | | | | | | [place] | | | | | | [address] | | | | | | | [...] | | | care | | | Keyboard Action Assembler-C | | | | | | [...] | | | care | | | Keyboard Action Assembler-C | | | | | | [...] | | | care | | | Keyboard Action Assembler-C | | | | | | [...] | | | care | | | Keyboard Action Assembler-C | | | | | | [...]
--- OUTSIDE RECORDS SUMMARY | ~2019-02-17 | XMS | Encounter Summary ---
Demographics + + + | Address | [address] | | | [place] [address] | + + + | Home Phone [...] Providers + +------+ + | Care Game Programer Name | Role | Phone | + [...] | | | | [address] [facility], | [address] | | | | | [place] [address] | [phone] | | | | | [phone] | | | +--------+ + + + [...] [place] | | | | | | [address] | | | | | | [phone] | | | | | | | | +--------+---------+ + + + | 02/26/ | Office | Urology | Lillie Fowler | | | 2018 | Visit | | [address] | | | | | | [address] | | | | | | [place], [place] | | | | | | [address] | | | | | | [phone] | | | | | | | | +--------+---------+ + + + | 03/16/ | Office | Neurology | Theresa, | | | 2018 | Visit | | [address] | | | | | | [address] [place], | | | | | | [place] [address] | | | | | | [phone] | | | | | | | | +--------+---------+ + + + | 04/12/ | Office | Primary Care | Massimo Ramos | | | 2019 | Visit | | MD Fer [address] | | | | | | [address] [place], [place] | | | | | | [address] | | | | | | | | +--------+---------+ + + + | 10/03/ | Office | Neurology | Fabián Carias MD | | | 2019 | Visit | | [address] | | | | | | [place], [place] | | | | | | [address] | | | | | | | [...] | | | care | | | Licensing Officer-C | | | | | | [...] | | | care | | | Licensing Officer-C | | | | | | [...] | | | care | | | Licensing Officer-C | | | | | | [...] | | | care | | | Licensing Officer-C | | | | | | [...]
--- OUTSIDE RECORDS SUMMARY | ~2019-02-17 | XMS | Encounter Summary ---
Demographics + + + | Address | [address] | | | [place] [address] | + + + | Home Phone [...] Providers + +------+ + | Care Line Builder Name | Role | Phone | [...] | | | | [place] | [address] | | | | | [address] | [phone] | | | | | [phone] | | | +--------+ + + + [...] [place] | | | | | | [address] | | | | | | [phone] | | | | | | | | +--------+---------+ + + + | 02/26/ | Office | Urology | Lillie Fowler | | | 2018 | Visit | | LILLIE Lopez [address] | | | | | | [address] | | | | | | [place] | | | | | | [address] | | | | | | [phone] | | | | | | | | +--------+---------+ + + + | 03/16/ | Office | Neurology | Theresa, | | | 2018 | Visit | | [address] | | | | | | [address] [place], | | | | | | [place] [address] | | | | | | [phone] | | | | | | | | +--------+---------+ + + + | 04/12/ | Office | Primary Care | Massimo Ramos | | | 2019 | Visit | | MD Fer [address] | | | | | | [place] | | | | | | [address] | | | | | | | | +--------+---------+ + + + | 10/03/ | Office | Neurology | Fabián Carias MD | | | 2019 | Visit | | [address] | | | | | | [place] | | | | | | [address] | | | | | | | [...] | | care | | | Water Vessel Captain-C | | | | | | [...] | | care | | | Water Vessel Captain-C | | | | | | [...] | | care | | | Water Vessel Captain-C | | | | | | [...] | | care | | | [employer] | | | | | | [...] additional information. | | | Job No.: [id number] Read By: DREW GARZA MD | | [...] MRI may provide additional information. Job No.: [id number] Read | | By: DREW GARZA MD [...] | | | | | |Job No.: [id number] | | | |Read By: DREW GARZA MD | | | |Released By: DREW GARZA MD | |Date: 12/27/2015 12:47 | | | | | + + documented in this encounter Visit Diagnoses Not on filedocumented in this encounter"
--- OUTSIDE RECORDS SUMMARY | ~2019-02-17 | XMS | Encounter Summary ---
Demographics + + + | Address | [address] | | | [place] [address] | + + + | Home Phone [...] Team Providers + +------+ + | Care Art Glass Setter Name | Role | Phone | [...] | 2017 | | [facility] | DO [address] | | | | | [facility] [address] | [facility], [place] | | | | | [address] [place], | [address] | | | | | [place] [address] | [phone] | | | | | [phone] | | | +--------+--------+ + + + [...] [place] | | | | | | [address] | | | | | | [phone] | | | | | | | | +--------+---------+ + + + | 02/26/ | Office | Urology | Malcolm Lillie | | | 2018 | Visit | | [address] | | | | | | [address] | | | | | | [place], [place] | | | | | | [address] | | | | | | [phone] | | | | | | | | +--------+---------+ + + + | 03/16/ | Office | Neurology | Theresa, | | | 2018 | Visit | | [address] | | | | | | [address] [place], | | | | | | [place] [address] | | | | | | [phone] | | | | | | | | +--------+---------+ + + + | 04/12/ | Office | Primary Care | Massimo Ramos | | | 2019 | Visit | | MD Fer [address] | | | | | | [address] [place] | | | | | | [address] | | | | | | | | +--------+---------+ + + + | 10/03/ | Office | Neurology | Fabián Carias MD | | | 2019 | Visit | | [address] | | | | | | [place] | | | | | | [address] [...] | | care | | | Cane Flume Chute Operator-C | | | | | | [...] | | care | | | Cane Flume Chute Operator-C | | | | | | [...] | | care | | | Cane Flume Chute Operator-C | | | | | | [...] | | care | | | Cane Flume Chute Operator-C | | | | | | | linical | + +--------+ +---+-----+ + + + | Note: Pt will | | check CBG's daily x1 | | Pt will take Lantis as | | prescribed | + + documented as of this encounter Visit Diagnoses Not on filedocumented in this encounter"
--- OUTSIDE RECORDS SUMMARY | ~2019-02-17 | XMS | Encounter Summary ---
Demographics + + + | Address | [address] | | | [place] [address] | + + + | Home Phone [...] Team Providers + +------+ + | Care Hemodialysis Charge Nurse Name | Role | Phone | [...] | | [address] [place], | [address] | Dx); Bilateral | | | | [place] [address] | [phone] | carpal tunnel | | | | [phone] | | syndrome; exterminator termite | | | | | | current [...] Pain. Dispense: 56 tablet; Refill: 0 3. exterminator termite current use of opiate analgesic - oxyCODONE [...] CATARACT REMOVAL; Surgeon: Tay Kern MD; Location: [facility] SUR[facility]ERY Azul Azul [place]aked[place] MOHS [...] [place] | | | | | | [address] | | | | | | [phone] | | | | | | | | +--------+---------+ + + + | 02/26/ | Office | Urology | Malcoml Lillie | | | 2018 | Visit | | [address] | | | | | | [address] | | | | | | [place] | | | | | | [address] | | | | | | [phone] | | | | | | | | +--------+---------+ + + + | 03/16/ | Office | Neurology | Theresa, | | | 2018 | Visit | | [address] | | | | | | [address] [place], | | | | | | [place] [address] | | | | | | [phone] | | | | | | | | +--------+---------+ + + + | 04/12/ | Office | Primary Care | Massimo Ramos | | | 2019 | Visit | | MD Fer [address] | | | | | | [place] | | | | | | [address] | | | | | | | | +--------+---------+ + + + | 10/03/ | Office | Neurology | Fabián Carias MD | | | 2019 | Visit | | [address] | | | | | | [place] | | | | | | [address] | | | | | | | [...] | | | care | | | Welding Supervisor-C | | | | | | [...] | | | care | | | Welding Supervisor-C | | | | | | [...] | | | care | | | Welding Supervisor-C | | | | | | [...] | | | care | | | Welding Supervisor-C | | | | | | [...] Carpal tunnel syndrome | + + | exterminator termite current use of opiate analgesic Encounter for long-term (current) use of | | other medications | + + documented in this encounter
--- OUTSIDE RECORDS SUMMARY | ~2019-02-17 | XMS | Encounter Summary ---
Demographics + + + | Address | [address] | | | [place] [address] | + + + | Home Phone [...] Providers + +------+ + | Care Supervisor Pleating Name | Role | Phone | + [...] | | MEDICAL [facility] | [facility], [place] | | | | | [address] [place], | [address] | | | | | [place] [address] | [phone] | | | | | [phone] | | | +--------+ + + + [...] [place] | | | | | | [address] | | | | | | [phone] | | | | | | | | +--------+---------+ + + + | 02/26/ | Office | Urology | Lillie Fowler | | | 2018 | Visit | | [address] | | | | | | [address] | | | | | | [place], [place] | | | | | | [address] | | | | | | [phone] | | | | | | | | +--------+---------+ + + + | 03/16/ | Office | Neurology | Theresa, | | | 2018 | Visit | | [address] | | | | | | [address] [place], | | | | | | [place] [address] | | | | | | [phone] | | | | | | | | +--------+---------+ + + + | 04/12/ | Office | Primary Care | Massimo Ramos | | | 2019 | Visit | | MD Fer [address] | | | | | | [address] [place], [place] | | | | | | [address] | | | | | | | | +--------+---------+ + + + | 10/03/ | Office | Neurology | Fabián Carias MD | | | 2019 | Visit | | [address] | | | | | | [place] | | | | | | [address] | | | | | | | [...] | | | care | | | Cellar Packer-C | | | | | | [...] | n of | | | hCarline M, | | | | complex | | | Case | | | | care | | | Cellar Packer-C | | | | | | [...] | | | care | | | Cellar Packer-C | | | | | | [...] | | | care | | | Cellar Packer-C | | | | | | | linical | + +--------+ +---+-----+ + + + | Note: Pt will | | check CBG's daily x1 | | Pt will take Lantis as | | prescribed | + + documented as of this encounter Visit Diagnoses Not on filedocumented in this encounter"
--- OUTSIDE RECORDS SUMMARY | ~2019-02-17 | XMS | Encounter Summary ---
Demographics + + + | Address | [address] | | | [place] [address] | + + + | Home Phone [...] Providers + +------+ + | Care Social Group Worker Name | Role | Phone | [...] | 2018 | | [facility] | CLINICAL EDUCATOR [address] | maxillary sinusitis | | | | CENTER [address] | [place] | (Primary Dx) | | | | [place] | [address] | | | | | [address] | | | | | | [phone] | | | +--------+ + + + [...] Arash Caballero NP - 04/13/2018Treat symptoms with kcqf-zar-vadusaw medicati ons such as Tylenol, oral antihistamines [...] be sent through Care Everywhere.Sinusitis, Elder teran (Azeri)documented in this encounter Medications at Time of [...] | | | | use of insulin ([facility]) | | | [...] | | | | | | disease, middle or intermediate school principal | | | | | | | [...] | | | | | | disease, middle or intermediate school principal | | | | | | | [...] [place] | | | | | | [address] | | | | | | [phone] | | | | | | | | +--------+---------+ + + + | 02/26/ | Office | Urology | Lillie Fowler | | | 2018 | Visit | | [address] | | | | | | [address] | | | | | | [place], [place] | | | | | | [address] | | | | | | [phone] | | | | | | | | +--------+---------+ + + + | 03/16/ | Office | Neurology | Theresa, | | | 2018 | Visit | | [address] | | | | | | [address] [place], | | | | | | [place] [address] | | | | | | [phone] | | | | | | | | +--------+---------+ + + + | 04/12/ | Office | Primary Care | Massimo Ramos | | | 2019 | Visit | | MD Fer [address] | | | | | | [address] [place], [place] | | | | | | [address] | | | | | | | | +--------+---------+ + + + | 10/03/ | Office | Neurology | Fabián Carias MD | | | 2019 | Visit | | [address] | | | | | | [place], [place] | | | | | | [address] | | | | | | | [...] | | | care | | | Mixing Supervisor-C | | | | | | [...] | | | care | | | Mixing Supervisor-C | | | | | | [...] | | | care | | | Mixing Supervisor-C | | | | | | [...] | | | care | | | Mixing Supervisor-C | | | | | | [...]
--- OUTSIDE RECORDS SUMMARY | ~2019-02-17 | XMS | Encounter Summary ---
Demographics + + + | Address | [address] | | | [place] [address] | + + + | Home Phone [...] Team Providers + +------+ + | Care Logistics Operations Director Name | Role | Phone | [...] | | | | [place] | [place] [address] | | | | | [address] | [phone] | | | | | [phone] | | | +--------+ + + + [...] [place] | | | | | | [address] | | | | | | [phone] | | | | | | | | +--------+---------+ + + + | 02/26/ | Office | Urology | Lillie Fowler | | | 2018 | Visit | | [address] | | | | | | [address] | | | | | | [place] | | | | | | [address] | | | | | | [phone] | | | | | | | | +--------+---------+ + + + | 03/16/ | Office | Neurology | Theresa, | | | 2018 | Visit | | [address] | | | | | | [address] [place], | | | | | | [place] [address] | | | | | | [phone] | | | | | | | | +--------+---------+ + + + | 04/12/ | Office | Primary Care | Massimo Ramos | | | 2019 | Visit | | MD Fer [address] | | | | | | [place] | | | | | | [address] | | | | | | | | +--------+---------+ + + + | 10/03/ | Office | Neurology | Fabián Carias MD | | | 2019 | Visit | | [address] | | | | | | [place] | | | | | | [address] | | | | | | | [...] | | care | | | Child Life Assistant-C | | | | | | [...] | | care | | | Child Life Assistant-C | | | | | | [...] | | care | | | Child Life Assistant-C | | | | | | [...] | | care | | | Child Life Assistant-C | | | | | | [...]
--- OUTSIDE RECORDS SUMMARY | ~2019-02-17 | XMS | Encounter Summary ---
Demographics + + + | Address | [address] | | | [place] [address] | + + + | Home Phone [...] Providers + +------+ + | Care Children'S Court Magistrate Name | Role | Phone | + [...] | Results | | 2019 | | [facility] | DO [address] | | | | | MEDICAL CLIN[facility] [address] | [place], [place] | | | | | [address] [place], | [address] | | | | | [place] [address] | [phone] | | | | | [phone] | | | +--------+ + + + [...] [place] | | | | | | [address] | | | | | | [phone] | | | | | | | | +--------+---------+ + + + | 02/26/ | Office | Urology | Lillie Fowler | | | 2018 | Visit | | [address] | | | | | | [address] | | | | | | [place], [place] | | | | | | [address] | | | | | | [phone] | | | | | | | | +--------+---------+ + + + | 03/16/ | Office | Neurology | Theresa, | | | 2018 | Visit | | [address] | | | | | | [address] [place], | | | | | | [place] [address] | | | | | | [phone] | | | | | | | | +--------+---------+ + + + | 04/12/ | Office | Primary Care | Massimo Ramos | | | 2019 | Visit | | MD Fer [address] | | | | | | [place] | | | | | | [address] | | | | | | | | +--------+---------+ + + + | 10/03/ | Office | Neurology | Fabián Carias MD | | | 2019 | Visit | | [address] | | | | | | [place] | | | | | | [address] | | | | | | | [...] | | | care | | | Lithographic Camera Operator-C | | | | | | [...] | | | care | | | Lithographic Camera Operator-C | | | | | | [...] | | | care | | | Lithographic Camera Operator-C | | | | | | [...] | | | care | | | Lithographic Camera Operator-C | | | | | | [...]
--- OUTSIDE RECORDS SUMMARY | ~2019-02-17 | XMS | Encounter Summary ---
Demographics + + + | Address | [address] | | | [place] [address] | + + + | Home Phone [...] Team Providers + +------+ + | Care Training And Quality Manager Name | Role | Phone | [...] [place], [place] | | | | | [address] | [address] | | | | | [phone] | [phone] | | | | | | | [...] [place] | | | | | | [address] | | | | | | [phone] | | | | | | | | +--------+---------+ + + + | 02/26/ | Office | Urology | Lillie Fowler | | | 2018 | Visit | | [address] | | | | | | [address] | | | | | | [place] | | | | | | [address] | | | | | | [phone] | | | | | | | | +--------+---------+ + + + | 03/16/ | Office | Neurology | Theresa, | | | 2018 | Visit | | [address] | | | | | | [address] [place], | | | | | | [place] [address] | | | | | | [phone] | | | | | | | | +--------+---------+ + + + | 04/12/ | Office | Primary Care | Massimo Ramos | | | 2019 | Visit | | MD Fer [address] | | | | | | [place] | | | | | | [address] | | | | | | | | +--------+---------+ + + + | 10/03/ | Office | Neurology | Fabián Carias MD | | | 2019 | Visit | | [address] | | | | | | [place] | | | | | | [address] | | | | | | | [...] | | | care | | | Graphics Programmer-C | | | | | | [...] | | | care | | | Graphics Programmer-C | | | | | | [...] | | | care | | | Graphics Programmer-C | | | | | | [...] | | | care | | | Graphics Programmer-C | | | | | | [...]
--- OUTSIDE RECORDS SUMMARY | ~2019-02-17 | XMS | Encounter Summary ---
Demographics + + + | Address | [address] | | | [place] [address] | + + + | Home Phone [...] | | | | | toenail | [address] | [address] | | | | | Procedures | Phone: | Phone: | | | | | FOOT ISSUES | [phone] | [phone] | | | | | | Fax: | Fax: | | | | | | [phone] | [phone] | +--------+ + + + + + [...] | | | [place], [place] | [address] | sole; Onychomycosis | | | | [address] | | due to dermatophyte | | | | [phone] | | | +--------+---------+ + + + [...] this encounter Patient Instructions Patient Instructions Nessa Matuhr DPM - 02/19/2018 1:00 PM PST Foot Care Program Evaluating your feet 1. Use a pumice stone to your heels daily after your feet are softened from either a bath, shower or soaking them 2. At night apply Vaseline to your heels and place the corner of a plastic [place] Bag ov er your heels and then your socks on 3. Use the prescription sent to you by your doctor today daily documented in this encounter Progress Notes Nessa Mathur DPM - 02/19/2018 1:00 PM PST [facility] Note Patient Name: Geraldo Mcfadden | Age: 77 y.o. | : 1940 | Medical Record Number:[id number] | Author: Nessa Mathur DPM | Date [...] is no evidence of ischemic skin changes. [place] rature gradient was warm to cool measured [...] could purchase one at right aid or [employer]. 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 Electronically signed by: Nessa Mathur DPM 02/19/2018 at 13:48 Note: Part of this report was transcribed using voice recognition software. Every effort wa s made to ensure accuracy. However, inadvertent computerized microbiology instructor errors may be pre sent. CC: DO [...] [place] | | | | | | [address] | | | | | | [phone] | | | | | | | | +--------+---------+ + + + | 02/26/ | Office | Urology | Lillie Fowler | | | 2018 | Visit | | [address] | | | | | | [address] | | | | | | [place] | | | | | | [address] | | | | | | [phone] | | | | | | | | +--------+---------+ + + + | 03/16/ | Office | Neurology | Theresa, | | | 2018 | Visit | | [address] | | | | | | [address] [place], | | | | | | [place] [address] | | | | | | [phone] | | | | | | | | +--------+---------+ + + + | 04/12/ | Office | Primary Care | Massimo Ramos | | | 2019 | Visit | | MD Fer [address] | | | | | | [place] | | | | | | [address] | | | | | | | | +--------+---------+ + + + | 10/03/ | Office | Neurology | Fabián Carias MD | | | 2020 | Visit | | [address] | | | | | | [place] | | | | | | [address] | | | | | | | [...] | | | care | | | Geothermal Operations Engineer-C | | | | | | [...] | | | care | | | Geothermal Operations Engineer-C | | | | | | [...] | | | care | | | Geothermal Operations Engineer-C | | | | | | [...] | | | care | | | Geothermal Operations Engineer-C | | | | | | [...]
--- OUTSIDE RECORDS SUMMARY | ~2019-02-17 | XMS | Encounter Summary ---
Demographics + + + | Address | [address] | | | [place] [address] | + + + | Home Phone [...] +------+ + | Care Secondary School Teacher Name | Role | Phone [...] 2016 | Encounter | [facility] | [facility] [address] | | | | | CENTER [address] | [place] | | | | | [place] | [address] | | | | | [address] | | | | | | [phone] | | | +--------+ + + + [...] [place] | | | | | | [address] | | | | | | [phone] | | | | | | | | +--------+---------+ + + + | 02/26/ | Office | Urology | Lillie Fowler | | | 2018 | Visit | | [address] | | | | | | [address] | | | | | | [place] | | | | | | [address] | | | | | | [phone] | | | | | | | | +--------+---------+ + + + | 03/16/ | Office | Neurology | Theresa, | | | 2018 | Visit | | [address] | | | | | | [address] [place], | | | | | | [place] [address] | | | | | | [phone] | | | | | | | | +--------+---------+ + + + | 04/12/ | Office | Primary Care | Massimo Ramos | | | 2019 | Visit | | MD Fer [address] | | | | | | [place] | | | | | | [address] | | | | | | | | +--------+---------+ + + + | 10/03/ | Office | Neurology | Fabián Carias MD | | | 2019 | Visit | | [address] | | | | | | [place] | | | | | | [address] | | | | | | | [...] | | | care | | | Alarm Mechanism Adjuster-C | | | | | | [...] | | | care | | | Alarm Mechanism Adjuster-C | | | | | | [...] | | | care | | | Alarm Mechanism Adjuster-C | | | | | | [...] | | | care | | | Alarm Mechanism Adjuster-C | | | | | | [...] swelling. Query bursitis. Job #: | | [id number] Read By: Released By: MASSIMO NUNEZ MD [...]
--- OUTSIDE RECORDS SUMMARY | ~2019-02-17 | XMS | Encounter Summary ---
Demographics + + + | Address | [address] | | | [place] [address] | + + + | Home Phone [...] Team Providers + +------+ + | Care Biodiesel Production Associate Name | Role | Phone | [...] | | [place] | [place] [address] | | | | | [address] | [phone] | | | | | [phone] | | | +--------+ + + + [...] [place] | | | | | | [address] | | | | | | [phone] | | | | | | | | +--------+---------+ + + + | 02/26/ | Office | Urology | Lillie Fowler | | | 2018 | Visit | | [address] | | | | | | [address] | | | | | | [place] | | | | | | [address] | | | | | | [phone] | | | | | | | | +--------+---------+ + + + | 03/16/ | Office | Neurology | Theresa, | | | 2018 | Visit | | [address] | | | | | | [address] [place], | | | | | | [place] [address] | | | | | | [phone] | | | | | | | | +--------+---------+ + + + | 04/12/ | Office | Primary Care | Massimo Ramos | | | 2019 | Visit | | MD Fer [address] | | | | | | [place] | | | | | | [address] | | | | | | | | +--------+---------+ + + + | 10/03/ | Office | Neurology | Fabián Carias MD | | | 2019 | Visit | | [address] | | | | | | [place] | | | | | | [address] | | | | | | | [...] | | | care | | | Transcriber-C | | | | | | | [...] | | | care | | | Transcriber-C | | | | | | | [...] | | | care | | | Transcriber-C | | | | | | | [...] | | | care | | | Transcriber-C | | | | | | | [...] | | at 10:30 a.m. Job No.: [id number] Read By: | | | MASSIMO NUNEZ [...] | Jake at 10:30 a.m. Job No.: [id number] Read By: MASSIMO NUNEZ MD | | [...] | | | | | |Job No.: [id number] | | | |Read By: MASSIMO NUNEZ [...] 8:20 a.m. | | | Job No.: [id number] Read By: MASSIMO NUNEZ MD Released By: [...] | Jake at 8:20 a.m. Job No.: [id number] Read By: MASSIMO NUNEZ MD | | [...] | | | | | |Job No.: [id number] | | | |Read By: MASSIMO NUNEZ [...] cardiopulmonary | | | process. Job No.: [id number] Read By: MASSIMO Fung | | | [...] | of acute cardiopulmonary process. Job No.: [id number] Read By: MASSIMO Fung | | MD [...] | | | | | |Job No.: [id number] | | | |Read By: MASSIMO NUNEZ MD | | | |Released By: MASSIMO NUNEZ MD | |Date: 04/10/2015 10:11 | | | | | + + documented in this encounter Visit Diagnoses Not on filedocumented in this encounter"
--- OUTSIDE RECORDS SUMMARY | ~2019-02-17 | XMS | Encounter Summary ---
Demographics + + + | Address | [address] | | | [place] [address] | + + + | Home Phone [...] Team Providers + +------+ + | Care Yacht Builder Name | Role | Phone | [...] | | | [facility] | Operating Room Technologist-Clinical | | | | | [facility], | | | | | | [place] [address] | | | | | | [phone] | | | +--------+ + + + [...] | | | | | | [address] | | | | | | [place], [place] | | | | | | [address] | | | | | | [phone] | | | | | | | | +--------+---------+ + + + | 02/26/ | Office | Urology | Lillie Fowler | | | 2019 | Visit | | [address] | | | | | | [address] | | | | | | [place], [place] | | | | | | [address] | | | | | | [phone] | | | | | | | | +--------+---------+ + + + | 03/16/ | Office | Neurology | Theresa, | | | 2018 | Visit | | [address] | | | | | | [address] [place], | | | | | | [place] [address] | | | | | | [phone] | | | | | | | | +--------+---------+ + + + | 04/12/ | Office | Primary Care | Massimo Ramos | | | 2019 | Visit | | MD [address] | | | | | | [place] | | | | | | [address] | | | | | | | | +--------+---------+ + + + | 10/03/ | Office | Neurology | Fabián Carias MD | | | 2019 | Visit | | [address] | | | | | | [place] | | | | | | [address] | | | | | | | [...] | | | care | | | Operating Room Technologist-C | | | | | | [...] | | | care | | | Operating Room Technologist-C | | | | | | [...] | | | care | | | Operating Room Technologist-C | | | | | | [...] | | | care | | | Operating Room Technologist-C | | | | | | [...]
--- OUTSIDE RECORDS SUMMARY | ~2019-02-17 | XMS | Encounter Summary ---
Demographics + + + | Address | [address] | | | [place] [address] | + + + | Home Phone [...] Team Providers + +------+ + | Care Narrow Fabrics Weaver Name | Role | Phone | [...] | Procedures | [address] [place] | [address] | | | | | ECHO | [place], [place] | Phone: | | | | | Complete | [address] | [phone] | | | | | | Phone: | Fax: | | | | | | [phone] | [phone] | | | | | | Fax: | | | | | | | [phone] | | +--------+--------+ + + + + [...] | Procedures | [address] | [address] | | | | | ECHO | [place], [place] | Phone: | | | | | Complete | [address] | [phone] | | | | | | Phone: | Fax: | | | | | | [phone] | [phone] | | | | | | Fax: | | | | | | | [phone] | | +--------+--------+ + + + + [...] | | | | [place], [place] | [address] | | | | | [address] | | | | | | [phone] | | | +--------+ + + + [...] [place] | | | | | | [address] | | | | | | [phone] | | | | | | | | +--------+---------+ + + + | 02/26/ | Office | Urology | Lillie Fowler | | | 2018 | Visit | | [address] | | | | | | [address] | | | | | | [place], [place] | | | | | | [address] | | | | | | [phone] | | | | | | | | +--------+---------+ + + + | 03/16/ | Office | Neurology | Theresa, | | | 2018 | Visit | | SHONDA Mckinney [address] [place], | | | | | | [place] [address] | | | | | | [phone] | | | | | | | | +--------+---------+ + + + | 04/12/ | Office | Primary Care | Massimo Ramos | | | 2019 | Visit | | MD Fer [address] | | | | | [address] [place], [place] | | | | | | [phone] | | | | | | | | +--------+---------+ + + + | 10/03/ | Office | Neurology | Fabián Carias MD | | | 2019 | Visit | | [address] | | | | | | [place] | | | | | | [phone] | | | | | | | [...] | | care | | | [employer] [facility] | | | | | | [...] | | care | | | [facility] | | | | | | [...] | | care | | | [facility] | | | | | | [...] | | care | | | [facility] | | | | | | [...]
--- OUTSIDE RECORDS SUMMARY | ~2019-02-17 | XMS | Encounter Summary ---
Demographics + + + | Address | [address] | | | [place] [address] | + + + | Home Phone [...] Team Providers + +------+ + | Care Php Website Developer Name | Role | Phone | [...] | Medication | | 2018 | | [facility] | CC TRANSPORTATION DEPARTMENT SUPERVISOR | Management | | | | [facility] [address] | | | | | | [address] [facility] [place], | | | | | | [place] [address] | | | | | | [phone] | | | +--------+ + + + [...] [place] | | | | | | [address] | | | | | | [phone] | | | | | | | | +--------+---------+ + + + | 02/26/ | Office | Urology | Lillie Fowler | | | 2018 | Visit | | LILLIE [address] | | | | | | [address] | | | | | | [place] | | | | | | [address] | | | | | | [phone] | | | | | | | | +--------+---------+ + + + | 03/16/ | Office | Neurology | Theresa, | | | 2018 | Visit | | SHONDA [address] | | | | | [address] [place], | | | | | | [place] [address] | | | | | | [phone] | | | | | | | | +--------+---------+ + + + | 04/12/ | Office | Primary Care | Massimo Ramos | | | 2019 | Visit | | MD [address] | | | | | | [place] | | | | | | [address] | | | | | | | | +--------+---------+ + + + | 10/03/ | Office | Neurology | Fabián Carias MD | | | 2019 | Visit | | [address] | | | | | | [place], [place] | | | | | | [address] | | | | | | | [...] | | care | | | Manufacturing Support Engineer-C | | | | | | [...] | | care | | | Manufacturing Support Engineer-C | | | | | | [...] | | care | | | Manufacturing Support Engineer-C | | | | | | [...] | | care | | | Manufacturing Support Engineer-C | | | | | | | linical | + +--------+ +---+-----+ + + + | Note: Pt will | | check CBG's daily x1 | | Pt will take Lantis as | | prescribed | + + documented as of this encounter Visit Diagnoses Not on filedocumented in this encounter"
--- OUTSIDE RECORDS SUMMARY | 2019-02-17 22:52 | XMS ---
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 Willis VISIT COUNT (12 MO.) 16 Chaz Grady TOTAL 17 NOTE: Visits indicate total known visits. 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 or storm - Confused, sweating, jitters - Dehydration - Disorder of kidney and ureter, unspecified - Adverse effect of unsp drug/meds/biol subst, init - Drug induced akathisia - Weakness 12/08/2018 18:09 [facility] [place] TYPE: Emergency DIAGNOSES: - 1 Type 2 diabetes mellitus with unspecified complications - assisted (current) use of insulin - High Blood Sugar (Symptomatic) - High Blood Sugar - Hyperglycemia, unspecified 11/02/2018 12:29 [place] [place] TYPE: Emergency DIAGNOSES: - Weakness - Weakness - Repeated falls - Leg weakness 10/12/2018 12:07 [facility] [place] TYPE: Emergency DIAGNOSES: - Shortness of Breath - Edema - Pneumonitis due to inhalation of food and vomit 10/02/2018 17:21 [place] [place] TYPE: Emergency DIAGNOSES: - Chronic obstructive pulmonary disease w (acute) exacerbation - Fever, unspecified - Hypomagnesemia - Weakness - Hematuria, unspecified - Hypoxemia - Disorientation, unspecified - Dehydration - Urinary tract infection, site not specified - difficulity breathing - Pneumonia, unspecified organism - Altered Mental Status 09/30/2018 13:37 [facility]az [place] TYPE: Emergency DIAGNOSES: - Weakness - Localized enlarged lymph nodes - Leg Swelling - Weak 08/23/2018 20:22 [facility]az [place] TYPE: Emergency DIAGNOSES: - Dehydration - Syncope - Passed Out Twice today - Hyperosmolality and hypernatremia - Elevated Blood Sugar (Symptomatic) - Hyperglycemia, unspecified 07/24/2018 10:36 [place] [place] TYPE: Emergency DIAGNOSES: - Hypomagnesemia - Altered - Pneumonia, unspecified organism - Sepsis, unspecified organism Sepsis, u - Other acute kidney failure - Acute respiratory failure with hypoxia 07/14/2018 11:46 [place] [place] TYPE: Emergency DIAGNOSES: - Acute kidney failure, unspecified - Weakness,Vomiting - Weakness - assisted (current) use of insulin - 1 Type 2 diabetes mellitus with hyperglycemia 07/07/2018 21:04 [place] [place] TYPE: Emergency DIAGNOSES: - Hypovolemia - Weakness - Other acute kidney failure - Elevated white blood cell count, unspecified - Other hypotension 07/05/2018 12:57 [facility] [place] TYPE: Emergency DIAGNOSES: - Diarrhea (Adult) - Noninfective gastroenteritis and colitis, unspecified - Diarrhea 05/26/2018 15:24 [facility] [place] TYPE: Emergency DIAGNOSES: - Lobar pneumonia, unspecified organism - Low Blood Pressure - Disorder of kidney and ureter, unspecified - Weakness 05/13/2018 10:00 [facility] [place] TYPE: Emergency DIAGNOSES: - Transient cerebral ischemic attack, unspecified - Weakness 04/13/2018 17:24 [facility] [place] TYPE: Emergency DIAGNOSES: - Acute maxillary sinusitis, unspecified - ? Sinus Infection/Vomiting - Nausea 03/16/2018 08:15 [facility] [place] TYPE: Emergency DIAGNOSES: - Acute pulmonary edema - Hypothyroidism, unspecified - Weakness - Hypotension, unspecified - Acute respiratory failure with hypoxia - Extremity Weakness - Weakness 02/28/2018 10:04 [facility] [place] TYPE: Emergency DIAGNOSES: - weakness - Oth symptoms and signs involving the musculoskeletal system - Generalized hyperhidrosis - Elevated white blood cell count, unspecified INPATIENT VISIT TRACKING (12 MO.) 12/08/2018 18:09 [facility] [place] TYPE: Internal Medicine DIAGNOSES: - assisted (current) use of insulin - 1 Type 2 diabetes mellitus with unspecified complications - Hyperglycemia, unspecified 10/12/2018 12:07 [facility] [place] TYPE: Internal Medicine DIAGNOSES: - Pneumonitis due to inhalation of food and vomit - 1 Type 2 diabetes mellitus with hyperglycemia - Other specified abnormal findings of blood chemistry - 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 - Sepsis, unspecified organism Sepsis, u 10/02/2018 17:21 Chaz GEE TYPE: Internal Medicine DIAGNOSES: - Chronic obstructive pulmonary disease w (acute) exacerbation - Hypomagnesemia - Urinary tract infection, site not specified - Hypoxemia - Pneumonia, unspecified organism - Fever, unspecified - Metabolic encephalopathy - Dehydration - Hematuria, unspecified - Disorientation, unspecified 08/23/2018 20:22 [facility] [place] TYPE: Internal Medicine DIAGNOSES: - Hyperosmolality and hypernatremia - Hyperglycemia, unspecified - Dehydration [facility] DIAGNOSES: - Acute respiratory failure with hypoxia - assisted (current) use of insulin - Sepsis, unspecified organism Sepsis, u - Pneumonia, unspecified organism - Septic Pneumonia - 1 Type 2 diabetes mellitus with diabetic polyneuropathy - Acute kidney failure, unspecified - Severe sepsis with septic shock 07/14/2018 11:46 [facility] [place] TYPE: Internal Medicine DIAGNOSES: - 1 Type 2 diabetes mellitus with diabetic polyneuropathy - assisted (current) use of insulin - 1 Type 2 diabetes mellitus with hyperglycemia - Acute kidney failure, unspecified 07/07/2018 21:04 [facility] [place] TYPE: Internal Medicine DIAGNOSES: - Hypovolemia - Elevated white blood cell count, unspecified - Other hypotension - Acute kidney failure, unspecified - Other acute kidney failure 05/26/2018 15:24 Chaz Loaiza [facility] [place] TYPE: Internal Medicine DIAGNOSES: - Lobar pneumonia, unspecified organism - Disorder of kidney and ureter, unspecified [email or web address]
[2019-02-17] MEDS ORDERED: ALBUTEROL2.5 MG/3 M INH (23:00)
[2019-02-17] MEDS ORDERED: IPRAT-ALBUT 0.5-3 ML INH (23:01)
[2019-02-17] MEDS ORDERED: NORVASC10 MG PO (23:01)
[2019-02-17] MEDS ORDERED: LIPITOR20 MG PO (23:02)
[2019-02-17] MEDS ORDERED: ASPIR-TRIN325 MG PO (23:02)
[2019-02-17] MEDS ORDERED: PLAVIX75 MG PO (23:03)
[2019-02-17] MEDS ORDERED: VITAMIN B-121000 MC3 PO (23:03)
[2019-02-17] MEDS ORDERED: VITAMIN D1000 UNI1 PO (23:03)
[2019-02-17] MEDS ORDERED: HYDROCODON-ACE1 EA10 PO (23:04)
[2019-02-17] MEDS ORDERED: CYMBALTA60 MG PO (23:04)
[2019-02-17] MEDS ORDERED: LANTUS100 UNITS/ SUB-Q (23:05)
[2019-02-17] MEDS ORDERED: LEVOTHYROXINE100 MCG PO (23:05)
[2019-02-17] MEDS ORDERED: LOSARTAN POTASS50 MG PO (23:05)
[2019-02-17] MEDS ORDERED: FLOMAX0.4 MG PO (23:06)
[2019-02-17] MEDS ORDERED: ULTRAM50 MG PO ×2 (23:06→23:07)
[2019-02-17] MEDS ORDERED: ANDRODERM1 EAC3 TD (23:06)
[2019-02-17] MEDS ORDERED: LYRICA300 MG PO (23:06)
[2019-02-17] MEDS ORDERED: TRAZODONE HCL100 MG PO (23:07)
--- NOTE | 2019-02-18 05:20 | NUR ---
PT ARRIVED TO UNIT VIA STRETCHER FROM ED. PT ABLE TO STAND AND SELF TRANSFER. ON ROOM AIR. NO ACUTE DISTRESS. FULL ASSESSMENT TO BE COMPLETED.
--- NOTE | 2019-02-18 05:50 | NUR ---
ASSESSMENT INTAKE COMPLETED. PT ORIENETED TO ROOM. INFORCED SAFETY AND FALL PRECAUTIOINS. UPDATED PLAN OF CARE.
--- NOTE | 2019-02-18 07:30 | NUR ---
PATIENT SHIFT REPORT REPORT RECIEVED FROM [employer] GATHERING CAMERA PERSON RN. PATIENT RESTING IN BED AT THIS TIME. PER REPORT PATIENT IS ALERT AND ORIENTED AND WAS ABLE TO TRANSFER HIMSELF TO BED. CALL LIGHT IN REACH. WILL CONTINUE TO CLOSELY MONITOR.
--- NOTE | 2019-02-18 08:19 | NUR ---
PATIENT RESTING IN BED. PATIENT WOKE TO HIS NAME. PATIENT IS ALERT AND ORIENTED. ASSESSMENT COMPLETED. BREATH SOUNDS CLEAR. BOWEL TONES ACTIVE. NO EDEMA NOTED. PATIENT BACK TO RESTING AT THIS TIME. CALL LIGHT IN REACH. BED ALRAM ON FOR SAFETY. WILL CONTINUE TO CLOSELY MONITOR.
--- NOTE | 2019-02-18 09:55 | NUR ---
MEDICATIONS ADMINISTERED. PATIENT RESTING IN BED AND FINISHED BREAKFAST. PATIENT DENIES ANY NEEDS. PATIENT IS ALERT AND ORIENTED, BUT CAN NOT REMEMBER STAFFS NAMES AND IS NOTED TO HAVE ASKED MULTIPLE TIMES WHILE STAFF ARE IN THE ROOM. PATIENT BED ALARM ON FOR SAFETY. NO OHTER NEEDS AT THIS TIME. WILL CONTINUE TO CLOSELY MONITOR.
--- NOTE | 2019-02-18 10:57 | NUR ---
PATIENT CALLED AND STATED "MY MARRERO IS LEAKING". CHECKED AND LARGE AMOUNT OF URINE NOTED ON BED. REMOVED MARRERO PER MD ORDERS. RETAIL BRANCH MANAGER IN AT THE BEDSIDE TO COMPLETE ECHO THIS AM. PATIENT CALLS APPROPRIATELY. WILL CONTINUE TO CLOSELY MONITOR.
--- NOTE | 2019-02-18 12:30 | NUR ---
PATIENT COUGHED AND URINATED IN THE BED. ASSISTED PATIENT UP TO THE CHAIR WITH STAND-BY ASSIST. PATIENT TOLERATED WELL. PATIENT WILL BE TRANSFERED TO [facility]. PATIENT PLACED ON TELE 6 PER ORDERS. LUNCH ORDERED. ASSESSMENT REMAINS UNCHANGED AT THIS TIME. NO OTHER NEEDS AT THIS TIME. WILL CONTINUE TO CLOSELY MONITOR.
--- NOTE | 2019-02-18 14:00 | NUR ---
PATIENT SITTING IN THE CHAIR WITH FAMILY AT THE BEDSIDE. PATIENT DENIES ANY NEEDS AT THIS TIME. CALL LIGHT IN REACH. WILL CONTINUE TO CLOSELY MONITOR.
--- NOTE | 2019-02-18 15:07 | NUR ---
PATIENT CALLED AND STATES "I SNEEZED AND PEED". CLEANED AND CHANGED BLANKET IN CHAIR AND PLACED NEW PAD IN CHAIR. NEW GOWN IN PLACE. DEPENDS PLACED FOR LEAKAGE. PATIENT DENIES ANY OTHER NEEDS AT THIS TIME. WILL CONTINUE TO CLOSELY MONITOR.
--- NOTE | 2019-02-18 15:24 | NUR ---
CALLED PATIENTS FAMILY AND UPDATED THAT PATIENT WILL TRANSFER TO [facility]. ALSO, ASKED PATIENT FAMILY TO BRING IN TESTOSTERONE PATCH TOMORROW WHEN THEY [place]E [place]. GAVE REPORT TO JUSTIN HINTON ON [facility]. PATIENT RESTING IN CHAIR AT THIS TIME. ALL QUESTIONS ANSWERED. WILL CONTINUE TO CLOSELY MONITOR.
--- NOTE | 2019-02-18 16:00 | NUR ---
LIves with and grandson in [place]. Independent. [place] who [facility]. Wants to dc to home on discharge.
--- NOTE | 2019-02-18 16:01 | NUR ---
PT RECEIVED FROM CCU. PT ONR OOM AIR, LUNG SOUNDS CLEAR, DENIES SOB. PT ON TELE, HR 80. VSS. BOWEL TONES ACTIVE, DENIES NAUSEA. CMS INTACT, PT WITH 1+ EDEMA TO BLE. NS INFUSING AT 75, ABOUT 100 ML REMIAINING IN BAG. PT ORIETNED TO UNIT, INSTRUCTED TO CALL FOR ASSISTANCE. PT DENIES OTHER NEEDS AT THIS TIME.
--- NOTE | 2019-02-18 17:12 | NUR ---
PT CALL LIGTH ON. PT REPORTS "I SNEEZED AND PEED ALL OVER." STRESS INCONTINANCE NOTED. PT UP TO STAND WITH STAND BY ASSIST. STEADY ON FEET. DEPENDS CHANGED. CHRIS CARE DONE. GOWN AND CHAIR LINENS CHANGED. WARM BLANKETS PROVIDED. NO ADDITIONAL REQUESTS OR COMPLAINTS AT THIS TIME. CALL LIGHT WITHIN REACH.
--- NOTE | 2019-02-18 17:55 | NUR ---
PT BLOOD GLUCOSE 293, GIVEN 8 UNITS SS HUMALOG. PT SITTING IN CHAIR. PT DENIES OTHER NEEDS AT THIS TIME.
--- NOTE | 2019-02-18 18:23 | NUR ---
PT WAITING FOR DINNER TRAY.
--- NOTE | 2019-02-18 20:00 | NUR ---
RECEIVED REPORT AT 1900, FOUND PT SITTING UP IN CHAIR EATING DINNER. PT HAD NO NEEDS AT THAT TIME.
--- NOTE | 2019-02-18 20:40 | NUR ---
PT CALLED ASKING FOR MORE KLENEX, HE DENIES FURTHER NEEDS AT THIS TIME. CALL LIGHT IS WITHIN REACH.
--- NOTE | 2019-02-18 21:05 | NUR ---
PT CALLED NEEDED HELP TO CHANGE ATTENDS. HE DENIES FURTHER NEEDS AT THIS TIME. CALL LIGHT IS WITHIN REACH.
--- NOTE | 2019-02-18 21:21 | NUR ---
V/S ARE WDL. ALL LOBES ARE CLEAR, PT DOES HOWEVER HAVE A COLD AND HAS A STUFFY NOSE. NIO NASAL SPARAY WAS ORDERED. PT ALSO HAS A PRODUCTIVE COUGH PRESENT. ABD SOUNDS ARE PRESENT, NO PERIPHERAL EDEMA NOTED, OVERALL STRENGTH +5, PT IS AAOX4, PT DENIES DIZZINESS OVERALL. PT DOES HAVE SOME EPISODES OF INCONTINECE WHEN COUGHING.
--- NOTE | 2019-02-19 00:15 | NUR ---
PT IS AWAKE IN BED SINGING. NO NEW CONCERNS NOTED. STILL NOT ABLE TO GET NASAL SPRAY.
--- NOTE | 2019-02-19 03:34 | NUR ---
PT DENIES DIZZINESS, ALL LOBES ARE CLEAR BUT PT STILL HAS A COUGH. PT NEEDS A BED ALARM SINCE HE HAS GOTTEN UP ON HIS OWN A COUPLE OF TIMES. NO CHANGES WERE NOTED WITH SECOND ASSESSMENT.
--- NOTE | 2019-02-19 04:37 | NUR ---
STUFFY NOSE, COUGH AND NOW A HEADACHE ARE INCREASING. PT IS AFEBRILE. PT ALSO HAS PRESSURE IN SINUSES.
--- NOTE | 2019-02-19 05:30 | NUR ---
MD DE DIOS WAS CALLED BECAUSE PT AT THIS TIME HAS A TEMP OF 99.2 F AFTER 500MG TYLENOL WAS GIVEN AT 0422 OR SO. PT ALSO NOW HAS BODY ACHES. FLU-SWAP TO BE DONE AND SUDAFED 30MG PO Q6HRS PRN WAS ORDERED. WILL CONTINUE TO MONITOR.
--- NOTE | 2019-02-19 06:15 | NUR ---
PT SINCE START OF SHIFT STARTED COMPLAINING OF A STUFFY NOSE AND A COUGH. PT HAD SOME EPISODES OF INCONTINECE DUE TO HIS COUGH. THE NIO ORDER NASAL SPRAY WAS ORDERED BUT NOT AVAILABLE. THE NIGHT PROGRESSED HIS S/S GOT WORSE. AT 0422 500MG PO TYLENOL WAS GIVEN FOR A HEADACHE AND HIS TEMP AT THAT TIME WAS 98.3 F. ABOUT AN HOUR LATER, HIS TEMP WAS 99.2 F AND AT THAT TIME THE BODY ACHES STARTED WELL. MD DE DIOS WAS CALLED FOR A RAPID FLU-SWAP AND SOME MEDICATION. AT THIS TIME, PT FEELS A BIT BETTER STATED BY HIM. V/S OVERALL OTHERWISE ARE WDL, TELE# 6 SHOWES NSR. ALL LOBES ARE CLEAR, NO PERIPHERAL EDEMA NOTED, PT HAS DENIED DIZZINESS ALL SHIFT.
--- NOTE | 2019-02-19 07:45 | NUR ---
PATIENT SITTING UP IN CHAIR. IV WRAPPED. SETS UP BATHROOM FOR SHOWER. LINENS CHANGED. PATIENT GOES TO TAKE A SHOWER. CALL LIGHT WITHIN REACH. ICE WATER GIVEN. NO OTHER NEEDS AT THIS TIME
[2019-02-19] MEDS ORDERED: NYSTATIN15 GM TOP (08:30)
[2019-02-19] MEDS ORDERED: SILDENAFIL20 MG PO (08:33)
--- NOTE | 2019-02-19 09:24 | NUR ---
TOLERATED SHOWER WELL, C/O FEELING VERY TIRED AFTER SHOWER, ATE 100% OF BREAKFAST. CONT. TO C/O SINUS CONGESTION AND NASAL DRIP. ASSISTED BACK TO BED WITH WARM BLANKET FOR COMFORT, DENIES FURTHER NEEDS. CALL LIGHT IN EASY REACH.
--- NOTE | 2019-02-19 09:39 | NUR ---
PATIENT RESTING IN BED. VITAL SIGNS AND I&O DONE. PATIENT DID NOT VOID DURING THIS PERIOD. RN NOTIFIED. CALL LIGHT WITHIN REACH. NO OTHER NEEDS AT THIS TIME
[2019-02-19] MEDS ORDERED: HYDROCHLOROTHIA25 MG PO (09:40)
--- NOTE | 2019-02-19 09:41 | NUR ---
MED REC COMPLETE
[2019-02-19] MEDS ORDERED: LANTUS100 UNITS/ SUB-Q (10:53)
[2019-02-19] MEDS ORDERED: NOVOLOG100 UNIT/2 SUB-Q (10:55)
[2019-02-19] MEDS ORDERED: METOPROLOL SUCC25 MG PO (10:55)
[2019-02-19] MEDS ORDERED: SUDOGEST30 MG PO (11:06)
--- NOTE | 2019-02-19 11:30 | NUR ---
REVIEWED DISCHARGE INSTRUCTIONS WITH PATIENT, VERBALIZES UNDERSTANDING OF MEDICATIONS AND NEW PERSCRIPTION GIVEN, FOLLOWUP APPOINTMENT AND SX TO REPORT. PT HAS CALLED [facility] FOR A RIDE [facility].
--- NOTE | 2019-02-19 12:15 | NUR ---
DISCHARGED AT THIS TIME HOME WITH [facility].
--- NOTE | 2019-02-20 19:55 | EKG ---
[facility] [address] [place] [address] Signed Sinus bradycardia Otherwise normal ECG No previous ECGs available Confirmed by GAYLA DE DIOS MD ([id number]) on 02/20/2019 7:54:58 PM Electronically Signed By: GAYLA DE DIOS MD 02/20/191954 PATIENT NAME: LISA ALFRED Electrocardiogram DATE OF : 36 PHYSICIAN: GAYLA DE DIOS MD REPORT #: [id number] REPORT IS CONFIDENTIAL AND NOT TO BE RELEASED WITHOUT AUTHORIZATION
== END 2019-02-19 12:15 | disposition home or self-care (01) ==
LOC: ED 22:49 → CCU 22:50 → MS 22:50
PROVIDERS: ADMIT Internal Medicine
DX: I95.9 Hypotension, unspecified (principal); N17.9 Acute kidney failure, unspecified; E11.9 Type 2 diabetes mellitus without complications; I47.1 Supraventricular tachycardia; I10 Essential (primary) hypertension; E78.5 Hyperlipidemia, unspecified; N40.0 Benign prostatic hyperplasia without lower urinary tract symptoms; I25.2 Old myocardial infarction; G89.4 Chronic pain syndrome; M47.816 Spondylosis without myelopathy or radiculopathy, lumbar region; R09.81 Nasal congestion; Z88.8 Allergy status to other drugs, medicaments and biological substances; Z86.73 Personal history of transient ischemic attack (TIA), and cerebral infarction without residual deficits; Z87.891 Personal history of nicotine dependence; Z79.02 Long term (current) use of antithrombotics/antiplatelets; Z79.82 Long term (current) use of aspirin; Z79.4 Long term (current) use of insulin; Z79.891 Long term (current) use of opiate analgesic; Z79.899 Other long term (current) drug therapy
CPT/HCPCS: 36415; 51702; 70450; 71045; 80048; 80053; 81001; 83036; 83605; 83735; 84484; 85025; 87502; 93005; 93010; 93306; 96372; 99285-25; G0378; G0480; J1650; J1815; J2543; J7030

== ENCOUNTER 2019-05-26 06:20 | Emergency (ER) | payer OTHER ==
[~2019-05-26] VITALS: Ht 172.7 cm; Wt 86.2 kg
[~2019-05-26 06:20] MED LIST: ALBUTEROL2.5 MG/3 M INH; ANDRODERM1 EAC3 TD; ASPIR-TRIN325 MG PO; CYMBALTA60 MG PO; FLOMAX0.4 MG PO; HYDROCHLOROTHIA25 MG PO; HYDROCODON-ACE1 EA10 PO; IPRAT-ALBUT 0.5-3 ML INH; LANTUS100 UNITS/ SUB-Q; LEVOTHYROXINE100 MCG PO; LIPITOR20 MG PO; LOSARTAN POTASS50 MG PO; LYRICA300 MG PO; METOPROLOL SUCC25 MG PO; NORVASC10 MG PO; NOVOLOG100 UNIT/2 SUB-Q; NYSTATIN15 GM TOP; PLAVIX75 MG PO; SILDENAFIL20 MG PO; SUDOGEST30 MG PO; TRAZODONE HCL100 MG PO; ULTRAM50 MG PO; VITAMIN B-121000 MC3 PO; VITAMIN D1000 UNI1 PO
--- OUTSIDE RECORDS SUMMARY | 2019-05-26 06:22 | XMS ---
PreManage Notification: LISA ALFRED Security [employer]al [employer] Counselors Events No recent Security Events currently on file CRITERIA MET - 6 ED Visits in 6 Months - History of Sepsis Dx CARE PROVIDERS KORIN EMMANUEL [facility] Current PHONE: [phone] KORIN EMMANUEL Primary Care Current PHONE: [phone] [place] has no Care Guidelines for this patient. [place] VISIT COUNT (12 MO.) Sundeep Engel [place] TOTAL 16 NOTE: Visits indicate total known visits. ED/UCC VISIT TRACKING (12 MO.) 05/26/2019 06:20 [facility] [place] TYPE: Emergency COMPLAINT: - WEAKNESS, N/V/D 03/29/2019 08:49 [place] [place] TYPE: Emergency DIAGNOSES: - Nausea with vomiting, unspecified - Cough - Diarrhea, unspecified - Lobar pneumonia, unspecified organism - Nasal congestion - Nausea 02/22/2019 03:24 [place] TYPE: Emergency DIAGNOSES: - Chest Pain - Acute ischemic heart disease, unspecified - Non-ST elevation (NSTEMI) myocardial infarction - Unstable angina 02/17/2019 22:49 [facility] [place] TYPE: Emergency [...] 2 diabetes mellitus with unspecified complications - long term (current) use of insulin - High Blood [...] - Altered Mental Status 09/30/2018 13:37 [place] [place] TYPE: Emergency DIAGNOSES: - Weakness - Localized enlarged lymph nodes - Leg Swelling - Weak 08/23/2018 20:22 [place] [place] TYPE: Emergency DIAGNOSES: - Dehydration - Syncope - Passed Out Twice today - Hyperosmolality and hypernatremia - Elevated Blood Sugar (Symptomatic) - Hyperglycemia, unspecified 07/24/2018 10:36 [place] [place] TYPE: Emergency DIAGNOSES: - Hypomagnesemia - Altered - Pneumonia, unspecified organism - Sepsis, unspecified organism Sepsis, u - Other acute kidney failure - Acute respiratory failure with hypoxia 07/14/2018 11:46 Chaz [place] TYPE: Emergency DIAGNOSES: - Acute kidney failure, unspecified - Weakness,Vomiting - Weakness - halfway (current) use of insulin - 1 Type 2 diabetes mellitus with hyperglycemia 07/07/2018 21:04 Chaz [place] TYPE: Emergency DIAGNOSES: - Hypovolemia - Weakness - Other acute kidney failure - Elevated white blood cell count, unspecified - Other hypotension 07/05/2018 12:57 Chaz [place] TYPE: Emergency DIAGNOSES: - Diarrhea (Adult) - Noninfective gastroenteritis and colitis, unspecified - Diarrhea 05/26/2018 15:24 Chaz [place] TYPE: Emergency DIAGNOSES: - Lobar pneumonia, unspecified organism - Low Blood Pressure - Disorder of kidney and ureter, unspecified - Weakness INPATIENT VISIT TRACKING (12 MO.) 02/22/2019 09:43 [place] [facility] TYPE: Medical Surgical DIAGNOSES: - Non-ST elevation (NSTEMI) myocardial infarction - 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 02/17/2019 22:50 PATRICE [place] TYPE: Observation COMPLAINT: - UNRESPONSIVE/VIKAS/DEHYRDATION/DM DIAGNOSES: - Syncope and collapse - Acute kidney failure, unspecified - Personal history of nicotine dependence - Benign prostatic hyperplasia without lower urinry tract symp - Hyperlipidemia, unspecified - Prsnl hx of TIA (TIA), and cereb infrc w/o resid deficits - Hypotension, unspecified - Allergy status to oth drug/meds/biol subst status - Chronic pain syndrome - halfway (current) use of antithrombotics/antiplatelets - Supraventricular tachycardia - halfway (current) use of insulin - Old myocardial infarction - Other alf (current) drug therapy - long term (current) use of aspirin - Essential (primary) hypertension - Spondylosis w/o myelopathy or radiculopathy, lumbar region - 1 Type 2 diabetes mellitus without complications - long term (current) use of opiate analgesic - Nasal congestion 12/08/2018 18:09 [facility] [place] TYPE: Internal Medicine DIAGNOSES: - long term (current) use of insulin - 1 Type 2 diabetes mellitus with unspecified complications - Hyperglycemia, unspecified 10/12/2018 12:07 [place] [place] TYPE: Internal Medicine DIAGNOSES: - Pneumonitis due to inhalation of food and vomit - 1 Type 2 diabetes mellitus with hyperglycemia - Other specified abnormal findings of blood chemistry - long term (current) use of insulin - Sepsis, unspecified organism Sepsis, u 10/02/2018 17:21 Chaz [place] TYPE: Internal Medicine DIAGNOSES: - Chronic obstructive pulmonary disease w (acute) exacerbation - Hypomagnesemia - Urinary tract infection, site not specified - Hypoxemia - Pneumonia, unspecified organism - Fever, unspecified - Metabolic encephalopathy - Dehydration - Hematuria, unspecified - Disorientation, unspecified 08/23/2018 20:22 Chaz [place] TYPE: Internal Medicine DIAGNOSES: - Hyperosmolality and hypernatremia - Hyperglycemia, unspecified - Dehydration [facility]2018 [facility] DIAGNOSES: - Acute respiratory failure with hypoxia - long term (current) use of insulin - Sepsis, unspecified organism Sepsis, u - Pneumonia, unspecified organism - Septic Pneumonia - 1 Type 2 diabetes mellitus with diabetic polyneuropathy - Acute kidney failure, unspecified - Severe sepsis with septic shock 07/14/2018 11:46 [place] [place] TYPE: Internal Medicine DIAGNOSES: - 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
[2019-05-26] MEDS ORDERED: ISOSORBIDE MONO30 MG PO (06:51)
[2019-05-26] MEDS ORDERED: LANTUS100 UNITS/ SUB-Q (07:59)
[2019-05-26] MEDS ORDERED: ZOFRAN4 MG PO (08:16)
== END 2019-05-26 11:50 | disposition home or self-care (01) ==
LOC: ED 06:20
DX: K52.9 Noninfective gastroenteritis and colitis, unspecified (principal); E11.65 Type 2 diabetes mellitus with hyperglycemia; I25.2 Old myocardial infarction; J44.9 Chronic obstructive pulmonary disease, unspecified; E03.9 Hypothyroidism, unspecified; Z87.891 Personal history of nicotine dependence; Z88.8 Allergy status to other drugs, medicaments and biological substances; Z79.899 Other long term (current) drug therapy; Z79.4 Long term (current) use of insulin; Z79.82 Long term (current) use of aspirin
CPT/HCPCS: 36415; 80053; 81001; 82010; 82800; 83735; 85025; 99285; J7040

== ENCOUNTER 2020-09-09 04:28 | Inpatient (IN) | payer OTHER, MEDICARE ==
[~2020-09-09] VITALS: Ht 172.7 cm; Wt 78.5 kg
[~2020-09-09 04:28] MED LIST changes: +ISOSORBIDE MONO30 MG PO; -LEVOTHYROXINE100 MCG PO; +LEVOTHYROXINE88 MCG PO; -LIPITOR20 MG PO; +LIPITOR40 MG PO; +LYRICA150 MG PO; -LYRICA300 MG PO; +ZOFRAN4 MG PO
--- OUTSIDE RECORDS SUMMARY | 2020-09-09 04:30 | XMS ---
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 [place] VISIT COUNT (12 MO.) 4 Chaz Wilkins [facility] TOTAL 5 NOTE: Visits indicate total known visits. ED/UCC VISIT TRACKING (12 MO.) 09/09/2020 04:28 PATRICE [place] TYPE: Emergency COMPLAINT: - WEAKNESS 09/05/2020 09:54 [place] TYPE: Emergency DIAGNOSES: - Weakness - Weakness - COVID-19 - Pneumonia, unspecified organism 05/11/2020 11:25 [place] TYPE: Emergency DIAGNOSES: - Thyrotoxicosis, unspecified without thyrotoxic crisis or storm - Emesis - vomiting 11/17/2019 11:56 Chaz [place]vid[place] TYPE: Emergency DIAGNOSES: - Syncope - Type 2 diabetes mellitus with hyperglycemia - Neck Pain 10/12/2019 09:25 Chaz HernandezOvidio [place] TYPE: Emergency DIAGNOSES: - High Blood Sugar (Symptomatic) - High Blood Sugar - Type 2 diabetes mellitus with hyperglycemia - Thyrotoxicosis, unspecified without thyrotoxic crisis or storm - Elevated blood-pressure reading, without diagnosis of hypertension INPATIENT VISIT TRACKING (12 MO.) 09/05/2020 09:54 Chaz Catalan[facility]immie Mary[place]io [place] TYPE: Internal Medicine DIAGNOSES: - Pneumonia, unspecified organism - COVID-19 - piecer up (current) use of insulin - Weakness - Type 2 diabetes mellitus with unspecified complications - Hereditary and idiopathic neuropathy, unspecified [email or web address]
[2020-09-09] MEDS ORDERED: DEXAMETHASONE4 MG PO (04:43)
[2020-09-09] MEDS ORDERED: AZITHROMYCIN250 MG PO (04:43)
--- NOTE | 2020-09-09 08:59 | NUR ---
PT IS A 2 PERSON ASSIST TO MOVE FROM GURNEY TO BED. PT ABLE TO HELP A LITTLE. PT ABLE TO ROLL FROM SIDE TO SIDE IN BED TO CHANGE DRAW SHEET. PT INCONTINENT OF LARGE AMOUNT OF URINE. ALL CHUCKS PADS REPLACED. PT SKIN IS INTACT ON COCCIX AND CHRIS AREA. PT REPORTS CRONIC BACK PAIN, DENIES NAUSEA AND SOB. PT IV SITE IS INTACT, NO REDNESS OR SWELLING NOTED, FLUSHES EASILY. PT HAS FLAT AFFECT AND APPEARS FATIGUED. SOME "MUSCLE SPASUMS" NOTED IN BILAT LEGS. PT VITALS ARE WNL, NO FEVER. PT IS ABLE TO ANSWER ALL QUESTIONS APPROPRIATLY.
--- NOTE | 2020-09-09 10:30 | NUR ---
PT SLEEPING SOUNDLY, VITALS REMAIN WNL.
[2020-09-09] MEDS ORDERED: INSULIN AS100 UNIT/3 SUB-Q (11:50)
--- NOTE | 2020-09-09 12:27 | NUR ---
LUNCH VANI INTO PT ROOM. PT STATES "I GUESS I COULD TRY EATING A LITTLE". PT REPORTS CHRONIC BACK PAIN IS 6/10, 50 MG PO ULTRAM GIVEN. PT ABLE TO TAKE PILLS EASILY. PT STILL SLIGHTLY CONFUSED, HOWEVER IS COOPERATIVE, MENTATION IS IMPROVING.
--- NOTE | 2020-09-09 12:54 | NUR ---
called Mr. Gulshan Mcfadden the pt's son to give and update on both his mother and father. all questions were answered. his phone number is [phone], he currently lives with his parents and is helping to take care of him.
--- NOTE | 2020-09-09 14:35 | NUR ---
PT ABLE TO TALK ON THE PHONE WITH HIS DAUGHTER, IS AWAKE AND ALERT, SITTING UP IN BED, ABLE TO USE PHONE EASILY.
--- NOTE | 2020-09-09 16:42 | NUR ---
PT IS AWAKE AND ALERT X3, BASELINE CONFUSION. PT BOOSTED UP IN BED AND REPOSITIONED FOR BACK COMFORT. DRAW SHEET AND CHUCKS PADS CHANGED DUE TO SMALL INCONTINENT VOID. PT DENIES NAUSEA AND SOB, AND REPORTS CHRONIC BACK PAIN IS WELL CONTROLLED. PT ABLE TO ASSIST WITH LINEN CHANGE BY ROLLING FROM SIDE TO SIDE IN THE BED. IV SITE REMAINS INTACT, NO REDNESS OR SWELLING NOTED, PT DENIES PAIN AT SITE, IT FLUSHES EASILY. PT HAS CALL LIGHT WITHIN REACH AND KNOWS HOW TO USE IT.
--- NOTE | 2020-09-09 17:01 | NUR ---
DINNER BROUGHT INTO PT, ASSISTED HIM TO SIT UP IN BED, SET UP UTENSILS AND FOOD WITHIN REACH. PT REPORTS CHRONIC BACK PAIN IS 6/10, PT GIVEN PO TYLENOL AND ULTRAM FOR PAIN MANAGEMENT. IV SITE REMAINS INTACT, NO REDNESS OR SWELLING NOTED, FLUSHES EASILY, REMDESIVER STARTED. PT IS TALKATIVE AND APPROPRIATE. HE DENIES ANY NEEDS AT THIS TIME.
--- NOTE | 2020-09-09 17:50 | NUR ---
PT ABLE TO EAT 60% OF DINNER. REMDESIVER FINISHED, IV SITE IS SALINE LOCKED. PT REPORTS PAIN IS ADRIANA AT THIS TIME. CALL LIGHT IS WITHIN REACH. PT DENIES NAUSEA AND SOB.
--- NOTE | 2020-09-09 20:20 | NUR ---
RESTING IN BED, HAS CHRONIC BACK ACHE THAT IS AT USUAL. NO OTHER C/O. HAS OCC HARSH COUGH, NON PRODUCTIVE. HS MEDS GIVEN.
--- NOTE | 2020-09-10 02:11 | NUR ---
AWAKENS EASILY, DENIES NEED FOR MED FOR BACK PAIN. HAS NO C/O. HR 48-50'S.
--- NOTE | 2020-09-10 04:10 | NUR ---
EYES CLOSED, APEARS TO BE ASLEEP.
--- NOTE | 2020-09-10 06:30 | NUR ---
AWAKENS EASILY. HAS NO C/O. AM MED GIVEN AND LAB DRAWN. IS AT NEURO BASELINE WITH HX OF DEMENTIA. WAS UNABLE TO REMEMBER SOME PAST LIFE EVENTS BUT IS COOPERATIVE AND AWARE HE IS IN THE HOSPITAL. ASKS ABOUT WHO IS ALSO ILL.
--- NOTE | 2020-09-10 08:15 | NUR ---
PT IS AWAKE AND ALERT, SITTING UP IN BED. PT HAS SOME BASELINE CONFUSION/FORGETFULNESS. PT DENIES SOB AND NAUSEA. HE REPORTS THAT HIS CHRONIC BACK PAIN IS AT 5/10, 650 MG PO TYLENOL AND 50MG PO ULTRAM GIVEN. IV SITE IS INTACT, NO SWELLING OR REDNESS, FLUSH INFUSES EASILY. 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 PT ABLE TO EAT ABOUT 25% OF HIS BREAKFAST. PT REPOSITIONED UP IN THE BED FOR COMFORT AND TO ASSIST EATING. PT ABLE TO HELP WITH REPOSITIONING.
--- NOTE | 2020-09-10 09:20 | NUR ---
PT FINISHED DRINKING HALF A CUP OF COFFEE. PT ABLE TO WASH HIS OWN HANDS AND FACE WITH A WARM WASH CLOTH. PT LINENS REMAIN DRY, AND PT DENIES NEEDING TO VOID. HE IS AWARE THAT HE NEEDS TO VOID.
--- NOTE | 2020-09-10 10:02 | NUR ---
PT ABLE TO VOID INTO URINAL.
--- NOTE | 2020-09-10 10:10 | NUR ---
CALLED PT'S DAUGHTER DANY TO UPDATE ON PT STATUS. ALL QUESTIONS ANSWERED.
--- NOTE | 2020-09-10 10:14 | NUR ---
PT'S DAUGHTER ANUP'S PHONE # IS [phone]
--- NOTE | 2020-09-10 11:05 | NUR ---
PT AWAKE AND ALERT SITTING UP IN BED. IV BOLUS STARTED, IV SITE IS INTACT, NO REDNESS OR SWELLING. PT GIVEN PARTIAL BED BATH AND ALL LINENS CHANGED. PT ONE PERSON ASSIST SITTING UP AT THE BEDSIDE AND THEN STAND AND PIVOT TO THE CHAIR. LEGS ELEVATED. PT HAS CALL LIGHT IN LAP, AND PHONE AT CHAIRSIDE.
--- NOTE | 2020-09-10 12:25 | NUR ---
PT HAS LUNCH IN FRONT OF HIM AND HE IS ABLE TO EAT INDEPENDENTLY. PT IS WATCHING TV AND SITTING UP IN THE CHAIR, HE REPORTS HE IS COMFORTABLE. PT DENIES NAUSEA AND SOB. PT REPORTS 6/10 CHRONIC BACK PAIN, 50 MG PO ULTRAM GIVEN. VITALS REMAIN WNL, PT IS STILL ON ROOM AIR, O2 SATS ARE 92-93%. IV FLUID BOLUS IS COMPLETED. IV SITE IS INTACT, NO REDNESS OR SWELLING NOTED.
--- NOTE | 2020-09-10 15:13 | NUR ---
PT REMAINS UP IN THE CHAIR, HE DENIES ANY NEEDS AT THIS TIME. HE HAS THE CALL LIGHT IN HIS LAP.
--- NOTE | 2020-09-10 15:55 | NUR ---
FULL REPORT GIVEN TO KEO HINTON FROM MED/SURG UNIT VIA PHONE. ALL QUESTIONS ANSWERED.
--- NOTE | 2020-09-10 16:10 | NUR ---
PT ABLE TO STAND OUT OF CHAIR WITH ONE PERSON ASSIST AND THEN TAKE TWO STEPS TO THE BED. PT DOES VERY WELL WITH ACTIVITY. DISCUSSED TRANSFER TO MED/SURG ROOM 117, ALL PT QUESTIONS ANSWERED.
--- NOTE | 2020-09-10 16:23 | NUR ---
PT MOVED TO MED/SURG FLOOR ROOM 117. PT HAS NO PERSONAL BELONGINGS THAT CAME FROM ER WITH HIM. PT UNDERSTANDS THE TRANSFER. PT ADRIANA MOVE WELL, WAS TRANSFERED IN BED. IN ROOM 117 PT HAS CALL LIGHT, REMOTE, AND URINAL WITHIN REACH AT BEDSIDE. ALL 4 RAILS ON BED ARE UP.
--- NOTE | 2020-09-10 16:35 | NUR ---
PT ARRIVE TO THE FLOOR VIA THE BED FROM CCU AROUND THIS TIME. PT STATES THAT HE IS FEELING PRETTY GOOD AND ONLY HAS HIS CHRONIC BACK PAIN AT THIS TIME.
--- NOTE | 2020-09-10 18:46 | NUR ---
THIS RN CHECKED ON PT AT THE DOOR. PT STATES THAT HE IS "JUST CHILLING BECAUSE THATS WHAT THE COOL KIDS SAY"
--- NOTE | 2020-09-10 19:15 | NUR ---
RECEIVED REPORT FROM JAMAAL CROWLEY. pt RESTING IN BED. NO REQUESTS AT THIS TIME. CALL LIGHT IN HAND.
--- NOTE | 2020-09-10 20:34 | NUR ---
IN TO DO ASSESSMENT. pt REPORTED 4/10 PAIN, REQUESTED PRN. GIVEN WITH SCHEDULED MEDICATIONS. DENIES SOB. RESPIRATIONS UNLABORED ON ROOM AIR. pt USED URINAL WITHOUT ASSISTANCE. EMPTIED. ASSESSMENT DONE. CALL LIGHT WITHIN REACH. NO FURTHER REQUESTS AT THIS TIME.
--- NOTE | 2020-09-10 22:30 | NUR ---
ROUNDED ON pt. RESTING IN BED WITH EYES CLOSED, RESPIRATIONS REGULAR AND UNLABORED. CALL LIGHT WITHIN REACH.
--- NOTE | 2020-09-10 23:00 | NUR ---
PT CALLED. URINAL EMPTIED, WARM BLANKET PROVIDED, BATHROOM DOOR SHUT. OFFERED EYE SLEEPWEAR, BUT HE REFUSED. WANTED CURTAIN SHUT HE PREFERS ROOM WITHOUT ANY LIGHT. NO OTHER NEEDS AT THIS TIME.
--- NOTE | 2020-09-11 00:36 | NUR ---
ROUNDED ON pt. RESTING IN BED WITH EYES CLOSED, RESPIRATIONS REGULAR AND UNLABORED. CALL LIGHT WITHIN REACH.
--- NOTE | 2020-09-11 02:22 | NUR ---
pt AWAKE. IV FLUIDS INFUSING PER ORDERS. pt RESTING IN BED. REPORTED "SAME OLD PAIN IN MY BACK. I COULD REALLY USE SOME OXY" DISCUSSED PAIN MANAGEMENT OPTIONS. pt REFUSED INTERVENTIONS AT THIS TIME STATING "IT'S FINE" NO CHANGES IN ASSESSMENT. CALL LIGHT WITHIN REACH.
--- NOTE | 2020-09-11 04:40 | NUR ---
ROUNDED ON pt. RESTING IN BED WITH EYES CLOSED, RESPIRATIONS REGULAR AND UNLABORED. CALL LIGHT WITHIN REACH.
--- NOTE | 2020-09-11 05:40 | NUR ---
IN TO DO VITALS. pt LAYING IN BED AWAKE. REPORTED 6/10 PAIN. PRN GIVEN WITH SCHEDULED MEDICATIONS. pt ABLE TO VOID. VITALS RECORDED. IV PATENT, INFUSING PER ORDERS. NO REQUESTS AT THIS TIME. CALL LIGHT WITHIN REACH.
--- NOTE | 2020-09-11 09:00 | NUR ---
THIS RN IN PTS ROOM TO GIVE PT HIS MORNING MEDS AND GIVE PT HIS BREAKFAST DUE TO ISOLATION STATUS. PT REPORTS THAT HE IS DOING WELL THIS AM AND NEEDS NOTHING ELSE THIS AM BESIDES HIS BREAKFAST
--- NOTE | 2020-09-11 09:45 | NUR ---
THIS RN BACK IN PTS ROOM TO DO PTS I&O AND VITALS. PT REPORTS THAT HE IS DOING WELL AND HAS NO CONCERNS OR PAIN TO BE NOTED. PT HAS NO REPORTS OF FEELING WORSE. PT STILL ON ROOM AIR AT THIS TIME.
[2020-09-11] MEDS ORDERED: LIDODERM1 EACH TOP (10:30)
[2020-09-11] MEDS ORDERED: ALOGLIPTIN25 MG PO (12:26)
[2020-09-11] MEDS ORDERED: CAVERJECT20 MCG INJ (12:27)
[2020-09-11] MEDS ORDERED: ARICEPT10 MG PO (12:29)
[2020-09-11] MEDS ORDERED: B COMPLEX1 EACH PO (12:37)
--- NOTE | 2020-09-11 12:41 | NUR ---
MED REC COMPLETE
--- NOTE | 2020-09-11 14:25 | NUR ---
PT UNDER PRECAUTIONS, MAY DC TODAY. WILL FOLLOW NEEDED
--- NOTE | 2020-09-11 15:35 | NUR ---
CALL PLACED TO PATIENTS ROOM CONTACT PERCAUTIONS IN PLACE DUE TO COVID + DX. CASE MANAGEMENT ASSESSMENT COMPLETED. PATIENT STATES HE LIVES AT HOME WITH HIS , ADULT SON AND GRANDSON. PATIENT DOES USE A CANE FOR MIBILITY AND HAS ONE AT HOME. CONTACT, INSURANCE AND PHARMACY INFORMATION VERIFIED. PATIENT IS ESTABLISHED WITH [place] PATEL DO AT [facility]. PATIENT STATES THAT THEY DOES USE THE FOOD BANK IN [place] AND FIND IT VERY HELPFUL. PATIENT WISHES TO DISCHARGE HOME WITH FAMILY WHEN READY. HE STATES HE FEELS THAT HIS SON AND GRANDSON WILL BE ABLE TO HELP WITH REVERBERATORY FURNACE SUPERVISOR, MEAL PREP, SHOPPING AND MOBILITY WHEN DISCHARGED. ADVISED PATIENT THAT IF HE FEELS HE NEEDS ANYTHING FOR DISCHARGE TO CONTACT CASE MANAGEMENT. WILL CONTINUE TO FOLLOW UP WITH PATIENT DURING HIS VISIT.
--- NOTE | 2020-09-11 17:30 | NUR ---
THIS RN IN PTS ROOM TO GIVE PT HIS MEDS, AND ADLS. PT STATES THAT HE IS DOING GOOD JUST TIRED. PT SITTING UP IN CHAIR AND STATES THAT HE NEEDS NOTHING ELSE AT THIS TIME. THIS RN ENCOURAGED PT TO DRINK MORE FLUIDS DUE TO LOW INTAKE (PT RECEIVED IV FLUIDS TODAY)
--- NOTE | 2020-09-11 19:33 | NUR ---
REPORT RECEIVED FROM JAMAAL CROWLEY. ISOLATION PRECAUTIONS. pt RESTING IN BED. BLANKETS PROVIDED FROM JAMAAL CROWLEY.
--- NOTE | 2020-09-11 21:10 | NUR ---
pt AWAKE RESTING IN BED, WATCHING TV. pt RATES PAIN 4/10 "ABOUT THE SAME IT ALWAYS IS, THE ONLY THING THAT HAS EVER WORKED WAS OXYCODONE AND MY DOCTOR TOOK ME OFF OF THAT". DENIES NEED FOR PRN MEDICATIONS. MOVING SELF IN BED. ASSESSMENT COMPLETE. LUNG SOUNDS CLEAR THROUGHOUT, ON RA. DENIES SOB. DENIES TOILETING NEEDS AT THIS TIME. ICE WATER PROVIDED WITH SCHEDULED MEDICATIONS. CALL LIGHT IN REACH. LIGHTS OFF IN ROOM.
--- NOTE | 2020-09-11 22:50 | NUR ---
CHECKED ON pt. RESTING IN BED AWAKE, WATCHING TV. DENIES ANY NEEDS AT THIS TIME. UP TO RESTROOM FOR VOID AND BACK TO BED. CALL LIGHT IN REACH.
--- NOTE | 2020-09-12 01:45 | NUR ---
CHECKED ON pt. LYING ON LEFT SIDE, EYES CLOSED, BREATHING UNLABORED. LIGHTS OFF IN ROOM.
--- NOTE | 2020-09-12 03:43 | NUR ---
pt RESTING IN BED ON LEFT SIDE. BREATHING EQUAL AND UNLABORED. LIGHTS OFF IN ROOM.
--- NOTE | 2020-09-12 06:11 | NUR ---
pt SLEEPING, AWAKENS TO VOICE. VSS. pt RATES PAIN 5/10 IN BACK. PRN PAIN MEDICATION ADMINISTERED. ASSESSMENT COMPLETE. LUNG SOUNDS CLEAR. URINAL EMPTIED. BREAKFAST ORDER PLACED FOR PATIENT. CALL LIGHT IN REACH.
--- NOTE | 2020-09-12 08:00 | NUR ---
REPORT RECEIVED. REPORT DONE OUTSIDE ROOM. PT VISUALIZED THROUGH DOOR. RESPIRAITONS EQUAL AND NONLABORED. PT IS ON RA. CALL LIGHT IN REACH.
--- NOTE | 2020-09-12 08:10 | NUR ---
PATIENT UP TO CHAIR FOR BREAKFAST, SBA. CALL LIGHT IN REACH. NO FURTHER NEEDS AT THIS TIME.
--- NOTE | 2020-09-12 08:50 | NUR ---
Per [address] Fenton pt will dc following PT. Called [facility] and their drivers are booked. Called and spoke with pt's grandson. He states he will pick grandparents up today. I will call him back with a discharge time. Grandson is Juan [phone].
--- NOTE | 2020-09-12 10:00 | NUR ---
ASSESSMENT COMPLETED. LUNGS CLEAR AND DIM IN BASES. HEART SOUNDS REGULAR. PULSES +2. PT REPORTS CRHRONIC PAIN IN LOWER BACK 5/10. SCEHDULED MEDICATIONS GIVEN. PHYSICAL THERAPY TO BEDSIDE NOW. PT DENEIS FURTHER NEEDS. CALL LIGHT IN REACH.
--- NOTE | 2020-09-12 10:33 | NUR ---
Spoke with PT and pt tolerated PT well and is ok for dc.
--- NOTE | 2020-09-12 11:15 | NUR ---
Spoke with Dr. Fenton. Pt will be ready for dc at 1300. Called to speak with grandson and reached pt's son Gulshan. He states he will pick pt up. Discussed he is covid + and we will bring pt to ER entrance for transport home. He will call when he arrives as pt needs clothing to go home in.
--- NOTE | 2020-09-12 13:27 | NUR ---
DISCHARGE INSTRUCTIONS PROVIDED. PT WITH NO QUESTIONS. IV DC'D AND WNL. PT INSTRUCTED TO CONTINUE ALL HOME MEDICATIONS. PT WHEEL OUT BACK TO GRANDSON. VITALS STABLE.
== END 2020-09-12 13:15 | disposition home or self-care (01) | DRG 177 ==
LOC: ED 04:28 → CCU 07:09 → MS 07:09
PROVIDERS: ADMIT Internal Medicine; ATTEND Internal Medicine
PROC: XW033E5 Introduction of Remdesivir Anti-infective into Peripheral Vein, Percutaneous Approach, New Technology Group 5 (ICD-10-PCS; principal; 2020-09-09)
DX: U07.1 COVID-19 (principal); J12.82 Pneumonia due to coronavirus disease 2019; J12.81 Pneumonia due to SARS-associated coronavirus; J96.01 Acute respiratory failure with hypoxia; J44.0 Chronic obstructive pulmonary disease with (acute) lower respiratory infection; E11.9 Type 2 diabetes mellitus without complications; E03.9 Hypothyroidism, unspecified; I25.10 Atherosclerotic heart disease of native coronary artery without angina pectoris; N40.0 Benign prostatic hyperplasia without lower urinary tract symptoms; G89.4 Chronic pain syndrome; I25.2 Old myocardial infarction; Z88.8 Allergy status to other drugs, medicaments and biological substances; Z79.02 Long term (current) use of antithrombotics/antiplatelets; Z79.82 Long term (current) use of aspirin; Z79.4 Long term (current) use of insulin; Z79.899 Other long term (current) drug therapy
CPT/HCPCS: 71045; 80048; 80053; 83605; 83735; 85025; 87040; 97110; 97116; 97162; 99285-25; J1815; J7050; J7121; J8540

== ENCOUNTER 2021-02-05 16:21 | Observation (INO) | payer OTHER ==
[~2021-02-05] VITALS: Ht 172.7 cm; Wt 89.0 kg
[~2021-02-05 16:21] MED LIST changes: +ALOGLIPTIN25 MG PO; +ARICEPT10 MG PO; +AZITHROMYCIN250 MG PO; +B COMPLEX1 EACH PO; +CAVERJECT20 MCG INJ; +DEXAMETHASONE4 MG PO; +INSULIN AS100 UNIT/3 SUB-Q; +LEVOTHYROXINE100 MCG PO; -LEVOTHYROXINE88 MCG PO; +LIDODERM1 EACH TOP; -VITAMIN B-121000 MC3 PO
[2021-02-05] MEDS ORDERED: NAPROSYN500 MG PO (22:08)
--- NOTE | 2021-02-05 22:17 | NUR ---
PATIENT ARRIVED VIA STRETCHER FROM ER. PATIENT SETTLED INTO ROOM AND ADMIT HISTORY QUESTIONS BEING ASKED BY GOVIND CHARGE NURSE. PATIENT DENIES PAIN AT THIS TIME. WILL RETURN TO PERFORM ADMIT ASSESSMENT WHEN JAMAAL FAUST HAS COMPLETED ADMIT HX. CALL LIGHT IS IN REACH.
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
--- NOTE | 2021-02-06 02:27 | NUR ---
PATIENT WA ASLEEP WHEN THIS RN WENT IN TO PERFORM ASSESSMENT AND VS. PATIENT DENIES PAIN. PATIENT ORIENTED EXCEPT FOR DATE AND TIME. PATIENT COOPERATIVE WITH ASSESSMENT. VS STABLE. PATIENT HAS NO VOIDED SINCE HIS ARRIVAL ON MED/SURG SO THE ONLY URINE OUT WAS FROM THE STRAIGHT CATH IN THE ER. PATIENT DENIES THE NEED TO VOID, SO WE WILL CONTINUE TO MONITOR FOR NOW. PATIENT SAYS HE SOULEYMANE CALL IF HE FEELS THE NEED TO VOID. CALL LIGHT IS IN REACH AND NO OTHER CARE NEEDS AT THIS TIME. LIGHTS TURNED DOWN.
--- NOTE | 2021-02-06 04:33 | NUR ---
PATIENT STILL NOT ABLE TO VOID. BLADDER SCAN SHOWS 288MLS IN THE BLADDER. WILL WAIT UNTIL CLOSER TO 6AM AND IF NOT ABLE TO VOID THIS RN WILL CALL . PATIENT HSA NO OTHER CARE NEEDS AT THIS TIME. CALL LIGHT IS IN REACH.
--- NOTE | 2021-02-06 05:42 | NUR ---
PATIENT HAS SLEPT WELL MOST OF THE NIGHT WHEN NOT INTERACTING WITH STAFF. PATIENT ORIENTED EXCEPT TO DATE AND TIME. PATIENT WAS DUE TO VOID AND HAD 288MLS PER BLADDER SCAN A LITTLE OVER AN HOUR AGO. PATIENT CALLED JUST NOW AND NEEDED TO HAVE A BM, BUT WAS ALREADY INCONTINENT FOUL SMELLING BROWN MUCUSY STOOL IN THE BED. BED CHANGED AND PATIENT AMBOLATED TO THE BATHROOM WITH CANE AND 1PSBA. PATIENT HAD MORE BM IN THE BATHROOM AND VOIDED 400MLS. AM MEDS WERE GIVEN AND AM ASSESSMENT AND VS COMPLETE. CALL LIGHT IN REACH AND BE ALARM ON. BREAKFAST ORDER TAKEN AND LIGHTS TURNED DOWN AT PATIENT'S REQUEST.
--- NOTE | 2021-02-06 07:50 | EKG ---
[facility] [address] [facility] [place] [address] Signed Normal sinus rhythm Left axis deviation Abnormal ECG When compared with ECG of 17-FEB-2019 23:00, QRS axis shifted left Confirmed by DORIAN HERNANDEZ MD ([id number]) on 02/06/2021 7:49:56 AM Electronically Signed By: DORIAN HERNANDEZ MD 02/06/21 0750 PATIENT NAME: LISA ALFRED Cyn Electrocardiogram DATE OF : 36 PHYSICIAN: DORIAN HERNANDEZ MD REPORT #: [id number] REPORT IS CONFIDENTIAL AND NOT TO BE RELEASED WITHOUT AUTHORIZATION
--- NOTE | 2021-02-06 08:00 | NUR ---
PT UP TO CHAIR WITH SBA AND CANE. PT EATING BREAKFAST IN THE CHAIR. CALL LIGHT IN REACH. NO FURTHER NEEDS AT THIS TIME
--- NOTE | 2021-02-06 09:29 | NUR ---
Patient reports he is doing fine at this time. Patient assisted to bathroom and back to bed, tolerated fair, per pt report he has no symptoms of sob or dizziness thus far in this shift. Patient was able to sit up in chair this morning for his breakfast. During the time in chair, ICU notified this RN that patient's heart rate was in low 30's for approximately ten seconds. Patient reported being asymptomatic at that time. Bed alarm remains intact, pt calling appropriately. Patient understands that he needs to call staff prior to ambulating. Patient remains close to RN station. Tele intact, heart rate trending 70-80's. Will continue to monitor.
[2021-02-06] MEDS ORDERED: OZEMPIC1 MG/0.71 SUB-Q (10:13)
--- NOTE | 2021-02-06 10:28 | NUR ---
PT AWAKE IN THE BED WITH CALL LIGHT IN REACH. PT HAS NO FURTHER NEEDS AT THIS TIME
--- NOTE | 2021-02-06 12:00 | NUR ---
Spoke with pt. He lives in [place] in a 1 story home with 3 steps. He is a [place]. He lives with his and grandson. Grand- son drives them, shops, cooks, and helps with cleaning. Pt has a cane, walker, and a scooter. He states he only uses his cane. Pt states he has a very poor memory and can't remember if he has seen the Dr. today. arrives and denies needs for him when he discharges. She states concern as pt as been seen, but cont. to have episodes of fainting. and I are discussing pts history, he states, "I did see the lady Dr and she told me I need to have a pace maker put in. I need to go the [facility]. I went and spoke with Dr. Vasquez and she will visit with in room. She confirms pt is having pauses on tele and will need a pacer. Dr Vasquez updated . is leaving to notify grandson.
--- NOTE | 2021-02-06 12:00 | NUR ---
Patient resting in bed, alert and oriented x4. Lunch to patient at this time. No current needs. Personal supplies and call light within reach.
[2021-02-06] MEDS ORDERED: PREGABALIN50 MG PO (13:02)
[2021-02-06] MEDS ORDERED: SEMGLEE100 UNIT/1 SUB-Q (13:02)
[2021-02-06] MEDS ORDERED: TRAZODONE HCL50 MG PO (13:02)
[2021-02-06] MEDS ORDERED: LEVOTHYROXINE150 MCG PO (13:03)
--- NOTE | 2021-02-06 13:16 | NUR ---
CALLED REPORT TO JAMAAL WALSH AT [facility], ALL QUESTIONS ANSWERED AT THIS TIME. PENDING EMS TRANSPORT.
--- NOTE | 2021-02-06 13:28 | NUR ---
PATIENT IN BED WATCHING TV. VITALS AND I&O'S CHARTED. CALL LIGHT IN REACH. NO FURTHER NEEDS AT THIS TIME.
--- NOTE | 2021-02-06 18:16 | NUR ---
PT AWAKE IN CHAIR WAITING FOR TRANSPORT. CALL LIGHT WITHIN REACH. NO FURTHER NEEDS AT THIS TIME.
--- NOTE | 2021-02-06 19:32 | NUR ---
[facility] HERE AT 1921, REPORT GIVEN. OFF THE FLOOR AT 1930. TRAVIS LEMUS CALLED [phone] WITH THE TRANSFER TIME @ [phone]
== END 2021-02-06 19:30 | disposition short-term general hospital (02) ==
LOC: ED 16:21 → MS 16:23
PROVIDERS: ADMIT Internal Medicine; ATTEND Internal Medicine
DX: R00.1 Bradycardia, unspecified (principal); R55 Syncope and collapse; E11.9 Type 2 diabetes mellitus without complications; E03.9 Hypothyroidism, unspecified; I25.2 Old myocardial infarction; J44.9 Chronic obstructive pulmonary disease, unspecified; Z86.73 Personal history of transient ischemic attack (TIA), and cerebral infarction without residual deficits; Z88.8 Allergy status to other drugs, medicaments and biological substances; Z79.4 Long term (current) use of insulin; Z20.822 Contact with and (suspected) exposure to COVID-19
CPT/HCPCS: 51701; 70450; 71045; 80048; 80053; 81001; 83735; 84443; 84484; 85025; 93005; 93010; 97110; 97161; 99285-25; A9270; C9803; G0378; J1815; J7030; U0003

== ENCOUNTER 2021-05-21 17:55 | Emergency (ER) | payer OTHER ==
[~2021-05-21] VITALS: Ht 172.7 cm; Wt 85.7 kg
[~2021-05-21 17:55] MED LIST changes: +LEVOTHYROXINE150 MCG PO; +NAPROSYN500 MG PO; +OZEMPIC1 MG/0.71 SUB-Q; +PREGABALIN50 MG PO; +SEMGLEE100 UNIT/1 SUB-Q; +TRAZODONE HCL50 MG PO
[2021-05-22] MEDS ORDERED: [UNRECOGNIZED DRUG - OTHER] (01:03)
--- NOTE | 2021-05-22 07:19 | EKG ---
[facility] [address] [facility] [place], [place] [address] Signed Normal sinus rhythm Left axis deviation Abnormal ECG When compared with ECG of 05-FEB-2021 16:29, No significant change was found Confirmed by DORIAN HERNANDEZ MD ([id number]) on 05/22/2021 7:19:36 AM Electronically Signed By: DORIAN HERNANDEZ MD 05/22/21 0719 PATIENT NAME: TIMALISA J Electrocardiogram DATE OF : 36 PHYSICIAN: DORIAN HERNANDEZ MD REPORT #: [id number] REPORT IS CONFIDENTIAL AND NOT TO BE RELEASED WITHOUT AUTHORIZATION
== END 2021-05-22 01:15 | disposition home or self-care (01) ==
LOC: ED 17:55
DX: R00.1 Bradycardia, unspecified (principal); R55 Syncope and collapse; I25.2 Old myocardial infarction; E11.9 Type 2 diabetes mellitus without complications; J44.9 Chronic obstructive pulmonary disease, unspecified; E03.9 Hypothyroidism, unspecified; Z88.8 Allergy status to other drugs, medicaments and biological substances; Z79.4 Long term (current) use of insulin; Z79.899 Other long term (current) drug therapy; Z20.822 Contact with and (suspected) exposure to COVID-19
CPT/HCPCS: 36415; 51701; 70450; 72125; 74177; 80053; 81001; 82553; 83690; 83735; 85025; 85610; 85730; 86850; 86900; 86901; 93005; 93010; 99285-25; C9803; J2270; Q9967; U0003

== ENCOUNTER 2021-10-23 02:55 | Inpatient (IN) | payer OTHER ==
[~2021-10-23] VITALS: Ht 172.7 cm; Wt 76.0 kg
[~2021-10-23 02:55] MED LIST changes: +[UNRECOGNIZED DRUG - OTHER]
[2021-10-23] MEDS ORDERED: LEVOTHYROXINE100 MC2 PO (03:16)
[2021-10-23] MEDS ORDERED: PREGABALIN75 MG PO (03:16)
[2021-10-23] MEDS ORDERED: ALBUTEROL2.5 MG/3 M INH (08:49)
[2021-10-23] MEDS ORDERED: LEVOTHYROXINE150 MCG PO (08:53)
[2021-10-23] MEDS ORDERED: INSULIN GL100 UNIT/3 SUB-Q (08:54)
[2021-10-23] MEDS ORDERED: CLOPIDOGREL75 MG PO (08:55)
[2021-10-23] MEDS ORDERED: MAGNESIUM OXID420 MG PO (08:57)
[2021-10-23] MEDS ORDERED: POTASSIUM CHLO10 ME2 PO (08:57)
[2021-10-23] MEDS ORDERED: HYDROCODON-ACE1 EA10 PO (08:59)
[2021-10-23] MEDS ORDERED: ASMANEX110 MC1 INH (09:02)
--- NOTE | 2021-10-23 12:14 | EKG ---
[facility] [address] [facility] [place] [address] Signed Sinus tachycardia Rightward axis Pulmonary disease pattern Abnormal ECG When compared with ECG of 21-MAY-2021 18:56, QRS axis shifted right Confirmed by GAYLA DE DIOS MD ([id number]) on 10/23/2021 12:14:25 PM Electronically Signed By: GAYLA DE DIOS MD 10/23/21 1214 PATIENT NAME: LISA ALFRED Electrocardiogram DATE OF : 36 PHYSICIAN: GAYLA DE DIOS MD REPORT #: [id number] REPORT IS CONFIDENTIAL AND NOT TO BE RELEASED WITHOUT AUTHORIZATION
[2021-10-31] MEDS ORDERED: OXYCODONE HCL5 MG PO (18:04)
[2021-10-31] MEDS ORDERED: LIDOCAINE PAIN1 EACH TD (18:05)
== END 2021-11-01 17:20 | disposition home or self-care (01) | DRG 871 ==
LOC: ED 02:55 → MS 06:47 → CCU 06:47 → MS 22:00
PROVIDERS: ADMIT Internal Medicine; ATTEND Internal Medicine
PROC: 3E03329 Introduction of Other Anti-infective into Peripheral Vein, Percutaneous Approach (ICD-10-PCS; principal; 2021-10-26)
PROC: 5A09357 Assistance with Respiratory Ventilation, Less than 24 Consecutive Hours, Continuous Positive Airway Pressure (ICD-10-PCS; 2021-10-26)
DX: A41.9 Sepsis, unspecified organism (principal); J18.9 Pneumonia, unspecified organism; J96.01 Acute respiratory failure with hypoxia; R65.21 Severe sepsis with septic shock; R53.2 Functional quadriplegia; J44.0 Chronic obstructive pulmonary disease with (acute) lower respiratory infection; R13.12 Dysphagia, oropharyngeal phase; E11.9 Type 2 diabetes mellitus without complications; E78.00 Pure hypercholesterolemia, unspecified; E03.9 Hypothyroidism, unspecified; Z66 Do not resuscitate; Z51.5 Encounter for palliative care; Z20.822 Contact with and (suspected) exposure to COVID-19; G30.9 Alzheimer's disease, unspecified; F02.80 Dementia in other diseases classified elsewhere, unspecified severity, without behavioral disturbance, psychotic disturbance, mood disturbance, and anxiety; G89.4 Chronic pain syndrome; D64.9 Anemia, unspecified; I25.2 Old myocardial infarction; Z86.73 Personal history of transient ischemic attack (TIA), and cerebral infarction without residual deficits; Z98.890 Other specified postprocedural states; Z88.8 Allergy status to other drugs, medicaments and biological substances; Z79.4 Long term (current) use of insulin; Z79.899 Other long term (current) drug therapy; Z79.891 Long term (current) use of opiate analgesic; Z74.01 Bed confinement status
CPT/HCPCS: 36415; 51702; 70450; 71045; 71260; 73502; 74177; 74230; 80048; 80053; 81001; 83036; 83605; 83735; 83880; 84484; 85025; 85379; 85610; 85730; 87040; 87070; 87205; 87502; 92526; 92610; 92611; 93005; 93010; 94640; 94660; 94667; 94668; 94760; 94761; 97110; 97163; 97166; 97530; 97535; 99285-25; A9270; C9113; C9803; J0692; J1650; J1815; J1940; J1956; J2543; J3475; J7030; J7121; Q9967; U0003

== ENCOUNTER 2022-02-21 05:49 | Emergency (ER) | payer OTHER ==
[~2022-02-21] VITALS: Ht 172.7 cm; Wt 78.5 kg
[~2022-02-21 05:49] MED LIST changes: +ASMANEX110 MC1 INH; +CLOPIDOGREL75 MG PO; +INSULIN GL100 UNIT/3 SUB-Q; +LEVOTHYROXINE100 MC2 PO; +LIDOCAINE PAIN1 EACH TD; +MAGNESIUM OXID420 MG PO; +OXYCODONE HCL5 MG PO; +POTASSIUM CHLO10 ME2 PO; +PREGABALIN75 MG PO
[2022-02-21] MEDS ORDERED: MORPHINE S10 MG/5 ML PO (05:57)
== END 2022-02-21 13:20 | disposition home or self-care (01) ==
LOC: ED 05:49
DX: E87.6 Hypokalemia (principal); R53.1 Weakness; I25.2 Old myocardial infarction; E11.9 Type 2 diabetes mellitus without complications; J44.9 Chronic obstructive pulmonary disease, unspecified; Z79.899 Other long term (current) drug therapy; Z20.822 Contact with and (suspected) exposure to COVID-19
CPT/HCPCS: 36415; 71045; 80053; 81003; 85025; 99285-25; A9270; J7040; U0003

== ENCOUNTER 2022-03-12 12:47 | Inpatient (IN) | payer OTHER ==
[~2022-03-12] VITALS: Ht 172.7 cm; Wt 78.0 kg
[~2022-03-12 12:47] MED LIST changes: +MORPHINE S10 MG/5 ML PO
--- NOTE | 2022-03-12 19:00 | NUR ---
PATIENT CLEANED OF BM DURING SKIN ASSESSMENT IN ER. PATIENT NOTED TO HAVE REDDENED COCCYX AREA THAT IS BLANCHABLE, ALLEVYN PLACED TO AREA. PATIENT ALSO HAS WHAT APPEARS TO BE SEVERAL PRESSURE INJURIES TO FEET...THESE ALSO SOMEWHAT RESEMBLE RINGWORM. PATIENT APPEARS PAINFUL WITH ROLLING, IS UNABLE TO VERBALIZE A PAIN RATING, 6/10 BY FACES SCALE. PATIENT APPEARS TO BE COMFORTABLE AT REST. HEEL PROTECTORS ARE ON. PATIENT GIVEN BED BATH UPON ARRIVING ON MED SURG. MARRERO CATHETER DRAINING THICK YELLOW URINE. PATIENT IS ON 5L VIA NC AT 100%, TURNED TO 4L FOR 97%. PATIENT DOES DISPLAY MOTTELING TO HANDS AND FEET.
--- NOTE | 2022-03-12 19:58 | EKG ---
[facility] [address] [facility] [place] [address] Signed Accelerated Junctional rhythm with premature ventricular complexes or fusion complexes Left axis deviation Low voltage QRS Nonspecific ST and T wave abnormality Abnormal ECG When compared with ECG of 23-OCT-2021 02:56, Significant changes have occurred Confirmed by Deborah Wong MD () on 03/12/2022 7:57:55 PM Electronically Signed By: DEBORAH WONG MD 03/12/221957 PATIENT NAME: LISA ALFRED MC Electrocardiogram DATE OF : 36 PHYSICIAN: DEBORAH WONG MD REPORT #: [id number] REPORT IS CONFIDENTIAL AND NOT TO BE RELEASED WITHOUT AUTHORIZATION
--- NOTE | 2022-03-12 20:00 | NUR ---
PATIENT RESTING IN BED, AROUSABLE TO VERBAL STIMULI. PATIENT ALERT TO SELF AND PLACE, HE IS UNABLE TO TELL ME DATE AND TIME. PATIENT DENIES PAIN AND OR SHORTNESS OF BREATH. MARRERO IN PLACE, SMALL AMOUNT OF CLEAR YELLOW URINE NOTED. PATIENT UPDATED ON PLAN OF CARE AND MEDICATIONS ORDER BY PROVIDER, ALL QUESTIONS ANSWERED. PATIENT'S VITAL SIGNS STABLE. PT CLOSE TO RN STATION, NO CURRENT NEEDS. BED ALARM INTACT, PERSONAL SUPPLIES AND CALL LIGHT WITHIN REACH. .
--- NOTE | 2022-03-12 21:01 | NUR ---
PHONE CALL TO MD JOSE DOES NOT WANT ORDER FOR TELE. PRIMARY RN NOTIFIED.
--- NOTE | 2022-03-13 00:05 | NUR ---
Updated Dr. Nair regarding urine output of 100ml for this shift. TORB to start normal saline @ 125ml/hr continuous. Order placed at this time.
--- NOTE | 2022-03-13 00:59 | NUR ---
report from inga gunn, bed alarm on.
--- NOTE | 2022-03-13 05:47 | NUR ---
[facility] DOWNT[facility] COMPLETE - NEW COMFORT CARE ORDERS ENTERED. PT SOMULENT IN BED WITH CALL LIGHT IN REACH. MARRERO DRAINING SCANT AMOUNT OF URINE WITH CATH HAVING SLOW LEAKING OF URINE NOTED FROM PENIS. CHRIS CARE DONE AND ATTENDS ON. PT NOW RESTING WITH A MORE RELAXED APPEARANCE. VISIBLE FROM THE RN STATION. WILL CONTINUE TO MONITOR.
--- NOTE | 2022-03-13 06:06 | NUR ---
dthis rn and charge turned pt to right side, 4 mg ms iv given - pt moans and groans during reposition, - 50 ml dark urine noted in wright - attends cdi. pt gurgles with resp. call light in reach .
--- NOTE | 2022-03-13 07:00 | NUR ---
BEDSIDE HANDOFF REPORT RECEIVED FROM MARKETING PROGRAMS SPECIALIST RN. PT RESTING COMFORTABLY IN BED.
--- NOTE | 2022-03-13 07:35 | NUR ---
PT SON SAW CALLED FOR UPDATE, RETURNED CALL AND UPDATED ON PT STATUS. FAMILY PLANS TO COME LATER TODAY.
--- NOTE | 2022-03-13 09:16 | NUR ---
PT TENSE, HOLDING ON TO SIDE OF BED, GIVEN 4MG IV MORPHINE FOR PAIN AND SOB. NEONATAL DOCTOR ASSISTED WITH WASHING FACE, ORAL CARE, APPLIED CHAP STICK. SCOPOLAMINE PATCH APPLIED BEHIND LEFT EAR FOR SECRETIONS. PT REPOSITIONED TO LEFT TILT.
--- NOTE | 2022-03-13 09:16 | NUR ---
IN WITH RN TO REPOSITION PATIENT. PATIENT TURNED ONTO LEFT SIDE WITH PILLOW UNDER RIGHT HIP. AM CARE DONE. CALL LIGHT IN REACH.
--- NOTE | 2022-03-13 11:09 | NUR ---
PT MOVED TO ROOM 125. SPOKE WITH BRANDON, UPDATED ON NEW PT ROOM AND PT STATUS, ALL QUESTIONS ANSWERED.
--- NOTE | 2022-03-13 11:28 | NUR ---
PATIENT IS UNRESPONSIVE AT THIS TIME.PATIENT IS FROM HOME AND FAMILY FEELS LIKE CARE OF PATIENT IS TO MUCH. MD IS TALKING TO ABOUT MAKING PATIENT COMFORT CARE.
--- NOTE | 2022-03-13 12:32 | NUR ---
PT WITH MOAN WHEN TOUCHED, EYES OPEN, OCCASIONAL GASPING, GIVEN 4MG IV MORPHINE FOR PAIN AND SOB. PT WITH RATTLE, GIVEN SL ATROPINE, SCOPALAMINE PATCH REMIANS IN PLACE. ARTIFICIAL TEARS TO BOTH EYES. ORAL CARE AND CHAP STICK.
--- NOTE | 2022-03-13 15:30 | NUR ---
PT RESTING QUIETLY IN BED, EYES CLOSED, RESPIRATIONS UNLABORED.
--- NOTE | 2022-03-13 18:20 | NUR ---
PT LAYING IN BED, EYES CLOSED. RESPIRATIONS UNLABORED. PT APPEARS COMFORTABLE AT THIS TIME.
--- NOTE | 2022-03-13 23:01 | NUR ---
THIS INSTRUMENT MAKER APPRENTICE AND INSTRUMENT MAKER APPRENTICEZari BRANHAM DID PM CARE TO PATIENT AND REPOSITIONED LAYING ON TO HIS LEFT SIDE PLACED PILLOW ON HIS RIGHT SIDE.
--- NOTE | 2022-03-13 23:02 | NUR ---
dr welch updated on pt status.
--- NOTE | 2022-03-13 23:13 | NUR ---
PT GRIMACICE WITH TURNS FOR INCT. CHECK. MOANS WITH MOVEMENT. RN CHECKED WITH DROvidio 4 MG MS GIVEN FOR COMFORT - OT FACE MORE RELAXED AFTER IV MED.
--- NOTE | 2022-03-14 00:57 | NUR ---
pt repositioned, appears uncomfortable and stiff with movement, moaning and distressed. iv pain med and ativan given for comfort.
--- NOTE | 2022-03-14 02:29 | NUR ---
pt turned to left side, grimmace in discomfort - tense, moans in pain, wright and attends wnl. iv pain med given.
--- NOTE | 2022-03-14 04:20 | NUR ---
THIS LIQUID FLAVOR COMPOUNDER AND LIQUID FLAVOR COMPOUNDER CARROL CHECKED PATIENT'S ATTENDS. CARROL DID MARRERO CARE. PATIENT REPOSITIONED.
--- NOTE | 2022-03-14 05:36 | NUR ---
pt turned, attends checked - wright to gravity, pt has agonal breathing, moans - grimmace with movements. appears uncomfortable, right foot has 2 sores on dorsal area that pt crosses feet and puts pressure on, heel protectors on to comfort. pain medication given for discomfort - face is furrowed brow, and movement seems to upset pt.
--- NOTE | 2022-03-14 06:30 | NUR ---
pt resting in bed no changes, looks more relaxed, agonal breathning noted. resp 14.
--- NOTE | 2022-03-14 06:38 | NUR ---
marketing outreach coordinator alerted this rn that pt had no visible resp. rn in and no palp pulse and pt no visible resperations. furniture installer and thermostatic controls supervisor notified - call to dr. welch, voice mail left. call to pastoral care.
--- NOTE | 2022-03-14 11:10 | NUR ---
ANITA BISHOP HERE TO RECEIVED PT.
--- NOTE | 2022-03-14 11:53 | NUR ---
MED REC COMPLETE
--- NOTE | 2022-03-14 13:58 | NUR ---
I WAS INFORMED BY RADHA MONROE THAT PT HAD PASSED. ARRVIED, NO FAMILY PRESENT, DR WONG HAD TRIED TO CONTACT FAMILY IN [place]-TROUBLE WITH PHONE CONNECTIONS. WAS ABLE TO CONTACT THEM WITH MY PHONE- INFORMED SON SAW. HE DID NOT WANT TO WAKE HIS MOTHER. INFORMED ME THAT [facility] IS THEIR CHOICE. GAVE CONDOLENCES, SON DECIDED TO NOT COME IN, NOT FEELING WELL. MIKE FROM [facility] ARRIVED. EXCHANGED PAPERWORK, TRAVIS YBARRA AND JAMAAL JAMES ASSISTED IN TRANSFER. ESCORTED TO VEHICLE. INFORMED [place] THAT SON IS CONCERNED ABOUT FAMILY RECEIVING [facility] B[facility]. MIKE WILL FOLLOW UP
== END 2022-03-14 06:38 | DRG 690 ==
LOC: ED 12:47 → MS 17:59
PROVIDERS: ADMIT Family Medicine; ATTEND Family Medicine
DX: N39.0 Urinary tract infection, site not specified (principal); G93.49 Other encephalopathy; R62.7 Adult failure to thrive; E87.6 Hypokalemia; E03.9 Hypothyroidism, unspecified; R19.7 Diarrhea, unspecified; Z66 Do not resuscitate; Z51.5 Encounter for palliative care; I25.2 Old myocardial infarction; Z68.24 Body mass index [BMI] 24.0-24.9, adult; E11.9 Type 2 diabetes mellitus without complications; J44.9 Chronic obstructive pulmonary disease, unspecified; Z86.73 Personal history of transient ischemic attack (TIA), and cerebral infarction without residual deficits; Z88.8 Allergy status to other drugs, medicaments and biological substances; Z79.899 Other long term (current) drug therapy; Z98.890 Other specified postprocedural states; G30.9 Alzheimer's disease, unspecified; F02.80 Dementia in other diseases classified elsewhere, unspecified severity, without behavioral disturbance, psychotic disturbance, mood disturbance, and anxiety; Z20.822 Contact with and (suspected) exposure to COVID-19; D63.8 Anemia in other chronic diseases classified elsewhere; E78.5 Hyperlipidemia, unspecified
CPT/HCPCS: 36415; 71045; 80053; 81001; 83605; 83735; 84100; 84443; 84484; 85025; 87045; 87502; 93005; 93010; C9803; G0480; J0696; J2060; J2270; J3480; J7030; U0003